=== PATIENT | male | born 1965 | race Caucasian/White ===

== ENCOUNTER 2017-07-17 14:43 | Inpatient (IN) | payer MEDICAID, SELFPAY ==
[2017-07-17 14:45] VITALS: BP 115/76; PULSE 117; RESP 16; TEMP 36.2; BMI 25.7
--- NOTE | 2017-07-17 15:55 | ED.DCSUM_ITS ---
- ER Visit Summary Date of Service: 07/17/17 Chief Complaint: History of alcoholism requesting detox History of Present Illness: The patient is a 51 M year history of alcoholism. Patient states that he was detoxed at [facility] [place]. Went through detox last March here at [facility] through [facility]. And he is requesting detox again. He drinks 624 ounce beers daily. He has drank in the last several hours. He also has had some mild nausea vomiting. No hematemesis. No abdominal pain. No melena. Physical Examination: No aged male no acute distress. Vital signs are stable. Afebrile. H EENT exam unremarkable on the smell of alcohol. Neck nontender. Lungs coarse breath sounds. Few scattered wheezes consistent with a smoking history. Heart regular rhythm rate about 110 no murmur. Chest wall nontender. Abdomen soft nontender. Moving all 4 extremities. Nontender. No deformity. No edema. Normal range of motion. Back exam nontender. Neurologically is awake and alert. He is intoxicated but moving all 4 extremities. Test Results: [] Emergency Department Course and Treatment: He is requesting detox. I spoke to [facility] personnel they are coming down to assess him for possible admission and treatment for detox. Treatment Plan: I spoke with Ceci from [facility] and the hospitalist and the patient is being admitted for detox. Disposition: Admission Impression: Acute on chronic alcoholism Requesting alcohol detox This note was generated with [employer] dictation software. It may contain incorrect words, spelling, and punctuation that were not noted in review of the chart prior to signing ED Disposition - Plan for ED Patient: Chief Complaint: ETOH Intox Referrals: [facility] Doctor,Out of [Primary Care Provider] -
[2017-07-17 16:15] VITALS: BP 131/92; PULSE 110; RESP 20
--- NOTE | 2017-07-17 16:30 | NURSING ---
210 ACUTE ALCOHOL WITHDRAWAL FOR MEDICAL STABILIZATION NEETA
[2017-07-17 16:35] VITALS: BMI 25.7
--- NOTE | 2017-07-17 16:38 | HP.PCM_ITS ---
Problem List (1) Alcohol withdrawal Status: Acute (2) Alcohol abuse Status: Chronic (3) Chronic back pain Status: Chronic (4) Tobacco dependence Status: Chronic (5) BPH (benign prostatic hyperplasia) Status: Chronic (6) COPD (chronic obstructive pulmonary disease) Status: Suspected History of Present Illness Date of Admission: 07/17/17 Chief Complaint: Shakiness, anxiety, restlessness. The patient is a 51 year old M with past medical history as mentioned above presented to the emergency room requesting admission for medical stabilization from alcohol withdrawal. His main presenting symptoms as well as anxiety, shakiness and restlessness that has been going on since yesterday. He has been drinking at least 6 beers daily and his mentioned that he has been drinking this way at least for 50 years. He complains of vague abdominal pain, described as cramping, 4-5 out of 10 in severity, not radiating, associated with nausea and vomiting and without aggravating or relieving factors. When I asked the patient if he was admitted for detoxification in the past, he mentioned that he never been admitted. Apparently, he told the ER physician that he was admitted in May, for detoxification at [facility] and [place]. Upon revision of his chart, he was admitted for medical stabilization he had no hospital back in March,. In the emergency room , patient was afebrile, tachycardic, blood pressure stable and his pulse ox was maintained on room air. No routine blood work performed in the ER. He is being admitted for alcohol withdrawal for medical stabilization. Past Medical History Past Medical History (Chronic Problems): Chronic Problems Alcohol abuse (Chronic) Chronic back pain (Chronic) Tobacco dependence (Chronic) BPH (benign prostatic hyperplasia) (Chronic) Allergies bee pollen Allergy (Verified 07/17/17 15:55) Anaphylaxis nickel Adverse Reaction (Verified 07/17/17 15:55) Rash tramadol Adverse Reaction (Verified 07/17/17 15:55) Nausea Home Medications: Ambulatory Orders Medication Instructions Recorded Gabapentin [Neurontin] 600 mg PO TID 03/07/17 Surgical History: - - Cyst removal on face. Psychiatric History: No pertinent psych hx Smoking Status: Current every day smoker Alcohol: Heavy Drugs: None - *Family History Maternal History Items: Cancer - Rectal, - - Alcohol abuse Paternal History Items: Heart Disease, - - Alcohol abuse Review of Systems Constitutional: Reports: Anorexia, Weakness. Denies: Chills, Fever Eyes: Denies: Blurred vision, Double vision, Drainage, Redness HEENT: Denies: Difficulty Hearing, Ear Pain, Eye Pain, Nasal Congestion, Sore Throat Cardiovascular: Denies: Chest Pain, Chest Pressure, Edema, Heaviness, Light Headedness, Palpitations, Paroxysmal Noc. Dyspnea, Syncope Respiratory: Reports: Cough, Shortness of Breath. Denies: Hemoptysis, Wheezing Gastrointestinal: Reports: Abdominal Pain, Nausea, Vomiting. Denies: Constipation, Diarrhea Genitourinary: Reports: Urgency. Denies: Dysuria, Frequency, Hematuria Musculoskeletal: Denies: Arm Pain, Back Pain, Foot Pain Skin: Denies: Dryness, Rash Neurological: Denies: Balance problems, Double vision, Change in Speech, Confusion, Headaches, Incoordination Psychiatric: Reports: Anxiety. Denies: Depression Endocrine: Denies: Change in Body Habitus, Polydipsia VTE Information - Inpt Only VTE Present on Admission: No VTE Mechan Device Prophylaxis: None VTE Pharm Prophylaxis ordered?: No - Physical Exam General: Alert, Oriented x3, Cooperative, - - Anxious, restless. HEENT: Atraumatic, PERRLA, EOMI Oral: Moist Mucosa, No Gingival or Mucosal Lesions/ Ulcerations Neck: Supple, No JVD, Negative Carotid Bruits, Trachea Midline, Thyroid Normal Size and Texture Lungs: Clear to auscultation, No rhonchi, No wheeze, No rales, Diminished Cardiovascular: Regular rate, Regular Rhythm, Normal S1, Normal S2, No murmurs, PMI Normal Abdomen: Bowel Sounds Present, Soft, Non Tender, Non-Distended, No Hepato- splenomegaly Extremities: No clubbing, No cyanosis, No edema Skin: No rashes, No breakdown Lymphatic: No Cervical, Supraclavicular, or Inguinal Adenopathy Neurological: Cranial nerves II-XII grossly intact, Motor Exam 5/5 strength throughout Psych/Mental Status: Anxious, Restless, Alert and oriented to time, place, person, mood and affect Vital Signs Temp Pulse Resp BP 97.2 F L 117 H 16 115/76 07/17/17 14:45 07/17/17 14:45 07/17/17 14:45 07/17/17 14:45 Weight: 184 lb 1.376 oz Body Mass Index (BMI) 25.7 Assessment/Plan This is 51 years old male patient presented to the emergency room requesting admission for medical stabilization due to acute alcohol withdrawal and he is being admitted for detoxification. #1 acute alcohol withdrawal: Patient has been drinking alcohol daily for the last 30 years. After division of discharge, patient was admitted twice in the last year for medical stabilization and he relapsed. At this time, he is tachycardic, anxious and restless. Blood pressure stable. No routine blood work was done in the ER plan: Admit to MedSurg floor, cardiac monitoring, initiate [facility] protocol with tapering course of Ativan, folic acid, thiamine, multivitamins, stat CBC and CMP, lipase, urine drug screen, and INR, routine EKG, as needed Tylenol, as needed Bentyl, Seroquel, Mirapex, IV Zofran as needed, notify [facility] office. #2 benign prostatic hypertrophy: Continue Flomax and Proscar. #3 suspected COPD: Clinically stable, pulse ox is maintained on room air. Plan for albuterol as needed. #4 chronic back pain: Continue gabapentin, Tylenol as needed. #5 alcohol abuse: Plan as above. #6 tobacco abuse: Patient smokes cigarettes, more than a pack every day. Plan for NicoDerm patch daily. #7 DVT prophylaxis: Low risk patient, no prophylaxis indicated. This note was generated with [employer] dictation software. It may contain incorrect words, spelling, and punctuation that were not noted in checking the note before signing. Code Visit Inpatient E&M: 18705 Init Hosp L2
[2017-07-17 16:40] VITALS: BMI 25.2
--- NOTE | 2017-07-17 17:12 | EKG12_ITS ---
Test Reason : ADM Blood Pressure : / mmHG Vent. Rate : 114 BPM Atrial Rate : 114 BPM P-R Int : 160 ms QRS Dur : 092 ms QT Int : 320 ms P-R-T Axes : 060 102 032 degrees QTc Int : 441 ms Sinus tachycardia Otherwise normal ECG No previous ECGs available Confirmed by HILTON GALVEZ, MOMO ([id number]), editor & co founder SIMIN MCNAMARA ([id number] on 07/26/2017 1:14:57 PM Referred By: NEETA Confirmed By:MOMO CANELA MD
[2017-07-17 17:33] VITALS: BP 128/62; PULSE 118; RESP 16; TEMP 36.7; O2SAT 93
[2017-07-17 17:39] VITALS: BP 128/62; PULSE 118; RESP 18; TEMP 36.7
[2017-07-17] MEDS: Dextrose 5%/0.9% NaCl 1,000 ML 75 ML IV (17:54)
[2017-07-17 18:00] VITALS: PULSE 115
[2017-07-17] MEDS: Tamsulosin HCl 0.4 MG Capsule PO (18:00)
[2017-07-17] MEDS: LORazepam 1 MG Tablet PO ×2 (18:00→21:00)
[2017-07-17] MEDS: Dicyclomine 10 MG Capsule 20 MG PO (18:00)
[2017-07-17] MEDS: Ondansetron 4 MG/2 ML Vial IV (18:01)
[2017-07-17 18:11] LABS: International Normalized Ratio 0.9; Prothrombin Time (Protime)PT. 12.4 SECONDS (11.7-14.9)
[2017-07-17 18:13] LABS: Absolute Lymphocyte Count 1.49 X10^3/ul (0.83-4.51); Basophil# 0.03 X10^3/uL; Basophil% 0.8 % (0-1); Eosinophil# 0.01 X10^3/uL; Eosinophils% 0.3 % (0-5); Hematocrit 46.5 % (40-54); Hemoglobin 16.4 g/dl (13.0-16.5); Lymphocyte # 1.49 X10^3/ul (4.0); Lymphocyte % 37.7 % (19-41); Mean Corp Hgb Conc 35.3 g/gl (32-36); Mean Corpuscular Hgb 33.2 pg (27.0-32.0); Mean Corpuscular Volume 94.1 fL (80-94); Mean Platelet Vol. 9.1 fl (6.2-12.0); Monocyte# 0.45 X10^3/uL; Monocyte% 11.4 % (0-10); Neutrophil # 1.96 X10^3/uL (2.7-7.7); Neutrophil % 49.5 % (47-70); Platelet Count 147 K/mm3 (150-450); RBC Distribution Width CV 13.1 % (11.6-14.6); RBC Distribution Width SD 44.2 fl (35.1-43.9); Red Blood Count 4.94 M/mm3 (4.6-6.2)
[2017-07-17 18:18] LABS: POSITIVE COUNT NO; POSITIVE DIFFERENTIAL NO; POSITIVE MORPHOLOGY NO
[2017-07-17 18:23] LABS: AST(SGOT) 157 U/L (15-37); Alanine Aminotransfer ALT/SGPT 143 U/L (16-61); Albumin, Serum 3.7 g/dL (3.2-5.0); Alkaline Phosphatase 124 U/L (45-117); Anion Gap 11 (5-15); BUN 7 mg/dL (7-18); Chloride 102 mmol/L (98-107); Creatinine, Serum 0.78 mg/dL (0.70-1.30); EST Glomerular Filtration Rate 113 mL/min (>60); Est Glom Filt Rate - Afr Amer 137 mL/min (>60); Estimated Creatinine Clearance 122.01 ml/min; Globulin 3.7 g/dL (2.2-4.2); Glucose 71 mg/dL (74-106); Lipase 248 U/L (73-393); Potassium 3.8 mmol/L (3.5-5.1); Protein, Total 7.4 g/dL (6.4-8.2); Sodium Level 139 mmol/L (136-145)
[2017-07-17] MEDS: Gabapentin 600 MG Tablet PO (19:12)
[2017-07-17] MEDS: hydrOXYzine PAM 25 MG Capsule 50 MG PO (19:12)
[2017-07-17] MEDS: QUEtiapine 25 MG Tablet PO (19:52)
[2017-07-17] MEDS: Pramipexole Di-HCl 0.25 MG Tablet PO (19:52)
[2017-07-17 20:24] LABS: Amphetamine Urine VISTA NEGATIVE (<1000 ng/mL); Barbiturate Urine VISTA NEGATIVE (< 200 ng/mL); Benzodiazepine Urine VISTA NEGATIVE (< 200 ng/mL); Cocaine Urine VISTA NEGATIVE (< 300 ng/mL); Ecstacy Urine VISTA NEGATIVE (< 500 ng/mL); Methadone Urine VISTA NEGATIVE (< 300 ng/mL); PCP Urine VISTA NEGATIVE (< 25 ng/mL); THC Urine VISTA NEGATIVE (< 50 ng/mL); Vista UDS pH Range 6
[2017-07-17] MEDS: cloNIDine HCl 0.1 MG Tablet PO (21:00)
[2017-07-17 22:00] VITALS: BP 127/76; PULSE 118; RESP 18; TEMP 37
[2017-07-18] VITALS (10 sets, daily range): BP systolic 98–144; BP diastolic 61–105; PULSE 90–110; RESP 17–18; TEMP 36.5–37; O2SAT 92–97
[2017-07-18] MEDS: LORazepam 1 MG Tablet PO ×6 (02:13→23:43)
[2017-07-18] MEDS: cloNIDine HCl 0.1 MG Tablet PO ×5 (05:39→22:01)
[2017-07-18] MEDS: Multivitamins,Ther W-Minerals Tablet 1 TABLET PO (07:36)
[2017-07-18] MEDS: Folic Acid 1 MG Tablet PO (07:36)
[2017-07-18] MEDS: Thiamine Hydrochloride 100 MG Tablet PO (07:36)
[2017-07-18] MEDS: hydrOXYzine PAM 25 MG Capsule 50 MG PO ×3 (07:39→22:05)
--- NOTE | 2017-07-18 08:48 | PN_ITS ---
Subjective: Chief complaint: Follow-up after admission for acute alcohol withdrawal. Patient seen and examined. No acute events overnight. He is still complaining of significant shakiness and restlessness but he mentioned that he is feeling better. He denies any more abdominal pain or cramps, no nausea vomiting. He is afebrile, slightly tachycardic, blood pressure stable and pulse ox is maintained on room air. - Physical Exam General: Alert, Oriented x3, Cooperative, - - Anxious. HEENT: Atraumatic, PERRLA, EOMI Oral: Moist Mucosa, No Gingival or Mucosal Lesions/ Ulcerations Neck: Supple, No JVD, Negative Carotid Bruits, Trachea Midline, Thyroid Normal Size and Texture Lungs: Clear to auscultation, Normal air movement, No rhonchi, No wheeze, No rales Cardiovascular: Regular rate, Regular Rhythm, Normal S1, Normal S2, PMI Normal, Tachycardic Abdomen: Bowel Sounds Present, Soft, Non Tender, Non-Distended, No Hepato- splenomegaly Extremities: No clubbing, No cyanosis, No edema Skin: No rashes, No breakdown Lymphatic: No Cervical, Supraclavicular, or Inguinal Adenopathy Neurological: Cranial nerves II-XII grossly intact, Neuro grossly intact Psych/Mental Status: Normal Affect, Anxious Vital Signs Temp Pulse Resp BP Pulse Ox 97.7 F L 103 H 18 113/74 92 07/18/17 07:29 07/18/17 07:29 07/18/17 07:29 07/18/17 07:29 07/18/17 07:29 Oxygen Delivery Method Room Air Weight: 180 lb 12.465 oz Body Mass Index (BMI) 25.2 Intake and Output for Last 24 Hours 07/16/17 07/17/17 07/18/17 23:59 23:59 23:59 Intake Total 2029 / 2030 Output Total 300 / 300 Balance 1730 / 1730 Laboratory Tests Past 24 Hrs 07/17/17 07/17/17 07/17/17 17:24 17:24 17:24 WBC 4.0 L RBC 4.94 Hgb 16.4 Hct 46.5 MCV 94.1 H MCH 33.2 H MCHC 35.3 RDW 13.1 RDW Differential 44.2 H Plt Count 147 L MPV 9.1 Immature Gran % (Auto) 0.300 Neut % (Auto) 49.5 Lymph % (Auto) 37.7 [place] % (Auto) 11.4 H Eos % (Auto) 0.3 Baso % (Auto) 0.8 Absolute Neuts (auto) 2.0 Absolute Lymphs (auto) 1.49 Total Counted Not Reportable PT 12.4 INR 0.9 Sodium Potassium Chloride Carbon Dioxide Anion Gap BUN Creatinine Estim Creat Clear Calc Est GFR (MDRD) Af Amer Est GFR (MDRD) Non-Af BUN/Creatinine Ratio Glucose Calcium Total Bilirubin AST ALT Alkaline Phosphatase Total Protein Albumin Globulin Albumin/Globulin Ratio Lipase Urine Opiates Screen Urine Methadone Screen Ur Barbiturates Screen Ur Phencyclidine Scrn Ur Amphetamines Screen U Methamphetamin-MDMA U Benzodiazepines Scrn Urine Cocaine Screen U Cannabinoids Screen Ur Drug Screen Comment Ethyl Alcohol 393.0 H* 07/17/17 07/17/17 17:24 19:55 WBC RBC Hgb Hct MCV MCH MCHC RDW RDW Differential Plt Count MPV Immature Gran % (Auto) Neut % (Auto) Lymph % (Auto) [place] % (Auto) Eos % (Auto) Baso % (Auto) Absolute Neuts (auto) Absolute Lymphs (auto) Total Counted PT INR Sodium 139 Potassium 3.8 Chloride 102 Carbon Dioxide 26.0 Anion Gap 11 BUN 7 Creatinine 0.78 Estim Creat Clear Calc 122.01 Est GFR (MDRD) Af Amer 137 Est GFR (MDRD) Non-Af 113 BUN/Creatinine Ratio 9.0 L Glucose 71 L Calcium 8.0 L Total Bilirubin 0.40 AST 157 H ALT 143 H Alkaline Phosphatase 124 H Total Protein 7.4 Albumin 3.7 Globulin 3.7 Albumin/Globulin Ratio 1.0 Lipase 248 Urine Opiates Screen NEGATIVE Urine Methadone Screen NEGATIVE Ur Barbiturates Screen NEGATIVE Ur Phencyclidine Scrn NEGATIVE Ur Amphetamines Screen NEGATIVE U Methamphetamin-MDMA NEGATIVE U Benzodiazepines Scrn NEGATIVE Urine Cocaine Screen NEGATIVE U Cannabinoids Screen NEGATIVE Ur Drug Screen Comment Ethyl Alcohol Medical Necessity - Tobacco Use Smoking Status: Current every day smoker Tobacco Use: Cigarettes Assessment/Plan This is 51 years old male patient presented to the emergency room requesting admission for medical stabilization due to acute alcohol withdrawal and he is being admitted for detoxification. #1 acute alcohol withdrawal: He is on [facility] protocol with tapering course of Ativan, vitamin supplements with folic acid and thiamine, as needed Catapres , Bentyl, Vistaril, Mirapex and Seroquel. He is still complaining of shakiness and restlessness, tachycardic. Other vital signs are stable. Routine blood work was unremarkable. Pro time and INR are normal. Liver enzymes are slightly elevated. EKG revealed sinus tachycardia, otherwise normal. Plan: Continue same treatment. #2 elevated LFT: Likely because of alcoholic hepatitis. Pro time and INR are normal. #3 benign prostatic hypertrophy: Continue Flomax and Proscar. #4 suspected COPD: Clinically stable, pulse ox is maintained on room air. Continue albuterol as needed. #5 chronic back pain: Continue gabapentin, Tylenol as needed. #6 alcohol abuse: Plan as above. #7 tobacco abuse: Patient smokes cigarettes, more than a pack every day. He is on NicoDerm patch daily. #8 DVT prophylaxis: Low risk patient, no prophylaxis indicated. This note was generated with [employer] dictation software. It may contain incorrect words, spelling, and punctuation that were not noted in checking the note before signing. Code Visit Inpatient E&M: 05792 Subs Hosp L2
[2017-07-18] MEDS: Finasteride 5 MG Tablet PO (10:24)
[2017-07-18] MEDS: Ondansetron 4 MG/2 ML Vial IV (13:39)
[2017-07-18] MEDS: 0.9% NaCl Peripheral Flush Adult/Peds IV (13:40)
--- NOTE | 2017-07-18 14:42 | CHAPLAIN ---
Type of Pastoral Visit _x__ Initial Visit ___ Follow-up Visit ___ On-call Visit ___ General Patient Visit ___ Spiritual Assessment ___ Family Conference ___ Bereavement ___ Rapid Response ___ Code Blue ___ Other (describe below) Pastoral Care Referral From _x__ Patient ___ Family ___ Nurse ___ Physician ___ Skylights Assembler ___ Foundation Maker ___ Other (describe below) Sacrament/Intervention ___ Active listening ___ Anointing ___ Advent ___ Bereavement ___ Communion ___ Kristel exploration ___ ___ Life review ___ Prayer ___ Reconciliation ___ Sacrament of Sick _x__ Supportive presence ___ Wedding ___ Other (describe below) Pastoral Comments patient says that he is not feeling well enough to talk but would welcome parks recreation director to return tomorrow for follow up; pt reports that everyone has been treating him very well and he is glad to be here for the help needed
[2017-07-18] MEDS: Gabapentin 600 MG Tablet PO ×2 (15:04→23:46)
[2017-07-18] MEDS: Tamsulosin HCl 0.4 MG Capsule PO (17:33)
[2017-07-18] MEDS: Pramipexole Di-HCl 0.25 MG Tablet PO (22:05)
[2017-07-18] MEDS: Albuterol 2.5 MG/3 ML VIAL.NEB. INHALATION (22:55)
[2017-07-19 02:26] VITALS: BP 126/93; PULSE 98; RESP 18; TEMP 36.4
[2017-07-19] MEDS: QUEtiapine 25 MG Tablet PO ×2 (02:29→10:01)
[2017-07-19] MEDS: cloNIDine HCl 0.1 MG Tablet PO ×4 (02:29→14:26)
[2017-07-19 05:53] VITALS: BP 119/89; PULSE 98; RESP 18; TEMP 36.6
[2017-07-19] MEDS: LORazepam 1 MG Tablet PO ×2 (05:55→11:49)
--- NOTE | 2017-07-19 08:30 | PN_ITS ---
Subjective: Chief complaint: Follow-up after admission for acute alcohol withdrawal. patient seen and examined. No acute events overnight. He reported continued slow improvement in symptoms, less shaky and restless. Denies any other significant complaints. Vital signs are stable, slightly tachycardic. - Physical Exam General: Alert, Oriented x3, Cooperative, No apparent distress HEENT: Atraumatic, PERRLA, EOMI Oral: Moist Mucosa, No Gingival or Mucosal Lesions/ Ulcerations Neck: Supple, No JVD, Negative Carotid Bruits, Trachea Midline, Thyroid Normal Size and Texture Lungs: Clear to auscultation, Normal air movement, No rhonchi, No wheeze, No rales Cardiovascular: Regular rate, Regular Rhythm, Normal S1, Normal S2, PMI Normal Abdomen: Bowel Sounds Present, Soft, Non Tender, Non-Distended, No Hepato- splenomegaly Extremities: No clubbing, No cyanosis, No edema Skin: No rashes, No breakdown Lymphatic: No Cervical, Supraclavicular, or Inguinal Adenopathy Neurological: Cranial nerves II-XII grossly intact, Neuro grossly intact Psych/Mental Status: Normal Affect, Appropriate, Alert and oriented to time, place, person, mood and affect Vital Signs Temp Pulse Resp BP Pulse Ox 97.8 F 98 18 119/89 H 95 07/19/17 05:53 07/19/17 05:53 07/19/17 05:53 07/19/17 05:53 07/18/17 22:55 Oxygen Delivery Method Room Air Weight: 180 lb 12.465 oz Body Mass Index (BMI) 25.2 Intake and Output for Last 24 Hours 07/17/17 07/18/17 07/19/17 23:59 23:59 23:59 Intake Total 2870 / 2870 1000 / 1000 Output Total 300 / 300 Balance 2570 / 2570 1000 / 1000 Medical Necessity - Tobacco Use Smoking Status: Current every day smoker Tobacco Use: Cigarettes Assessment/Plan This is 51 years old male patient presented to the emergency room requesting admission for medical stabilization due to acute alcohol withdrawal and he is being admitted for detoxification. #1 acute alcohol withdrawal: He is on [facility] protocol with tapering course of Ativan, vitamin supplements with folic acid and thiamine, as needed Catapres , Bentyl, Vistaril, Mirapex and Seroquel. Symptoms started to improve, vital signs are stable. Routine blood work was unremarkable. Pro time and INR are normal. Liver enzymes are slightly elevated. EKG revealed sinus tachycardia, otherwise normal. Plan: Continue same treatment. #2 elevated LFT: Likely because of alcoholic hepatitis. Pro time and INR are normal. #3 benign prostatic hypertrophy: Continue Flomax and Proscar. #4 suspected COPD: Clinically stable, pulse ox is maintained on room air. Continue albuterol as needed. #5 chronic back pain: Continue gabapentin, Tylenol as needed. #6 alcohol abuse: Plan as above. #7 tobacco abuse: Patient smokes cigarettes, more than a pack every day. He is on NicoDerm patch daily. #8 DVT prophylaxis: Low risk patient, no prophylaxis indicated. This note was generated with [employer] dictation software. It may contain incorrect words, spelling, and punctuation that were not noted in checking the note before signing. Code Visit Inpatient E&M: 68277 Subs Hosp L2
[2017-07-19 09:53] VITALS: BP 131/97; PULSE 99; RESP 18; TEMP 36.3; O2SAT 95
[2017-07-19] MEDS: Folic Acid 1 MG Tablet PO (09:53)
[2017-07-19] MEDS: Multivitamins,Ther W-Minerals Tablet 1 TABLET PO (09:53)
[2017-07-19] MEDS: Thiamine Hydrochloride 100 MG Tablet PO (09:53)
[2017-07-19] MEDS: Finasteride 5 MG Tablet PO (09:55)
[2017-07-19 10:00] VITALS: BP 131/97; PULSE 95; RESP 18; TEMP 36.3
[2017-07-19 14:00] VITALS: BP 147/103; PULSE 95; RESP 16; TEMP 36.4
[2017-07-19] MEDS: hydrOXYzine PAM 25 MG Capsule 50 MG PO (14:31)
[2017-07-19] MEDS: Tuberculin,Purif.prot.deriv. 50 TU/ML Vial 5 ML ID (17:32)
[2017-07-19 21:35] VITALS: BP 148/90; PULSE 97; RESP 18; TEMP 36.4; O2SAT 96
[2017-07-20] MEDS: QUEtiapine 25 MG Tablet PO (00:13)
[2017-07-20] MEDS: cloNIDine HCl 0.1 MG Tablet PO ×2 (01:59→05:18)
[2017-07-20] MEDS: LORazepam 1 MG Tablet PO (01:59)
[2017-07-20 02:01] VITALS: BP 129/92; PULSE 95; RESP 18; TEMP 36.4
[2017-07-20 02:06] VITALS: BP 129/92; PULSE 95; RESP 18; TEMP 36.4; O2SAT 95
[2017-07-20] MEDS: hydrOXYzine PAM 25 MG Capsule 50 MG PO (05:19)
--- NOTE | 2017-07-20 08:06 | PCM.DC ---
You will use the following diet at home:: Regular Your food should be the consistency of: Regular Discharge Activity: Return to Normal Activity Weight Bearing Status: Full weight bearing Call your doctor if you observe: Fever of 101 or Higher, Shortness of breath, Dizziness, Fainting spells, Chest pain, Increased palpitations (irregular heartbeat), Uncontrolled pain Allergies/Adverse Reactions: Allergies bee pollen Allergy (Verified 07/17/17 15:55) Anaphylaxis nickel Adverse Reaction (Verified 07/17/17 15:55) Rash tramadol Adverse Reaction (Verified 07/17/17 15:55) Nausea Medications to take at Discharge Gabapentin [Neurontin] 600 mg PO TID PRN 03/07/17 Finasteride [Proscar] 5 mg PO DAILY #30 tab 07/20/17 Folic Acid 1 mg PO DAILY@0800 #30 tab 07/20/17 Multivitamins,Ther W-Minerals [Multivitamin With Minerals] 1 tab PO DAILYCM #30 tab 07/20/17 Tamsulosin HCl [Flomax] 0.4 mg PO DAILY@1730 #30 cap 07/20/17 Thiamine Hydrochloride [Vitamin B1] 100 mg PO DAILYCM #30 tab 07/20/17 The following prescriptions were given: Finasteride [Proscar] 5 mg PO DAILY #30 tab Folic Acid 1 mg PO DAILY@0800 #30 tab Multivitamins,Ther W-Minerals [Multivitamin With Minerals] 1 tab PO DAILYCM #30 tab Tamsulosin HCl [Flomax] 0.4 mg PO DAILY@1730 #30 cap Thiamine Hydrochloride [Vitamin B1] 100 mg PO DAILYCM #30 tab Primary Care Physician: [facility] Doctor,Out of [Primary Care Provider] - Please follow up with your Primary Care Physician in: 2 weeks.
[2017-07-20 08:07] VITALS: BP 113/82; PULSE 107; RESP 18; TEMP 36.9; O2SAT 96
--- NOTE | 2017-07-20 11:19 | DS.PCM_ITS ---
Discharge Date and Diagnosis Date of Admission: 07/17/17 Date of Discharge: 07/20/17 - Primary Discharge Diagnosis #1 acute alcohol withdrawal. #2 mild alcoholic hepatitis. - Secondary Discharge Diagnosis Chronic Problems Alcohol abuse (Chronic) Chronic back pain (Chronic) Tobacco dependence (Chronic) BPH (benign prostatic hyperplasia) (Chronic) Hospital Course and Treatment Operations: None Procedures: None Summary of Care Provided: Patient seen and examined on the day of discharge and appeared to be stable to be discharged home. Symptoms of anxiety, tremors and restlessness significantly improved. Denied any other complaints. Vital signs are stable. - Physical Exam General: Alert, Oriented x3, Cooperative, No apparent distress. HEENT: Atraumatic, PERRLA, EOMI. Neck: Supple, No JVD, Negative Carotid Bruits, Trachea Midline, Thyroid Normal. Lungs: Clear to auscultation, Normal air movement, No rhonchi, No wheeze, No rales. Cardiovascular: Regular rate, Regular Rhythm, Normal S1, Normal S2, PMI Normal. Abdomen: Bowel Sounds Present, Soft, Non Tender, Non-Distended, No Hepato- splenomegaly. Extremities: No clubbing, No cyanosis, No edema Skin: No rashes, No breakdown Neurological: Neuro grossly intact Vital Signs are stable. Hospital course: The patient is a 51 year old M presented to the emergency room requesting admission for medical stabilization and detoxification from acute alcohol withdrawal. Patient came in with symptoms of anxiety, restlessness, body aches and pains and abdominal discomfort. He has been using large amounts of alcohol daily for long time. In the past, he was admitted twice for alcohol withdrawal and he relapsed. He was treated with [facility] protocol with tapering course of Ativan, multivitamins, folic acid, thiamine, as needed Catapres, Bentyl, Vistaril, Mirapex and Seroquel. His EKG revealed sinus tachycardia, otherwise normal. His routine blood work was unremarkable. His liver enzymes were slightly elevated which is attributed to mild alcoholic hepatitis. His pro time and INR were normal. His lipase, total bilirubin and alkaline phosphatase were normal. His blood alcohol level was 393. His urine drug screen was negative. After treatment with [facility] protocol, patient symptoms improved, anxiety and restlessness significantly improved and he feels much better. Patient discharged home in a stable medical condition, discharged on multivitamins, folic acid, thiamine, continued on Proscar and Flomax for benign prostatic hypertrophy, recommended follow-up with PCP in 2 weeks and he will be going to [facility] which is an inpatient facility for alcoholic patients. Discharge Activity: Return to Normal Activity Weight Bearing Status: Full weight bearing Call your doctor if you observe: Fever of 101 or Higher, Shortness of breath, Dizziness, Fainting spells, Chest pain, Increased palpitations (irregular heartbeat), Uncontrolled pain Home Medications: Medications to take at Discharge Gabapentin [Neurontin] 600 mg PO TID PRN 03/07/17 Finasteride [Proscar] 5 mg PO DAILY #30 tab 07/20/17 Folic Acid 1 mg PO DAILY@0800 #30 tab 07/20/17 Multivitamins,Ther W-Minerals [Multivitamin With Minerals] 1 tab PO DAILYCM #30 tab 07/20/17 Tamsulosin HCl [Flomax] 0.4 mg PO DAILY@1730 #30 cap 07/20/17 Thiamine Hydrochloride [Vitamin B1] 100 mg PO DAILYCM #30 tab 07/20/17 Following Prescrptions Were Given to Patient: Finasteride [Proscar] 5 mg PO DAILY #30 tab Folic Acid 1 mg PO DAILY@0800 #30 tab Multivitamins,Ther W-Minerals [Multivitamin With Minerals] 1 tab PO DAILYCM #30 tab Tamsulosin HCl [Flomax] 0.4 mg PO DAILY@1730 #30 cap Thiamine Hydrochloride [Vitamin B1] 100 mg PO DAILYCM #30 tab Primary Care Physician: Kellee Lawler,Out of [Primary Care Provider] - Please follow up with your Primary Care Physician in: 2 weeks. Disposition: Home Minutes spent on discharge:: 26 Patient Condition:: Stable Medical Necessity - Tobacco Use Smoking Status: Current every day smoker Tobacco Use: Cigarettes Meaningful Use Info Meaningful Use Diagnoses (Choose all that apply): None applicable Code Visit Inpatient E&M: 52674 Disch Hosp
== END 2017-07-20 08:45 | disposition home or self-care (01) | DRG 434 ==
LOC: ED 16:14 → MS2 16:37
PROVIDERS: Admitting Provider Hospitalist; Emergency Provider Emergency Medicine; Visit Provider Hospitalist
DX: F10.239 Alcohol dependence with withdrawal, unspecified (principal); J44.9 Chronic obstructive pulmonary disease, unspecified; K70.10 Alcoholic hepatitis without ascites; N40.0 Benign prostatic hyperplasia without lower urinary tract symptoms; M54.9 Dorsalgia, unspecified; G89.29 Other chronic pain; F17.210 Nicotine dependence, cigarettes, uncomplicated; Y90.8 Blood alcohol level of 240 mg/100 ml or more
CPT/HCPCS: 36415; 80053; 80307; 80320; 83690; 85025; 85610; 93005; 94640; 97802; 99283; 99406; A4216; G0480; J2405

== ENCOUNTER 2024-09-17 18:29 | Inpatient (IN) | payer MEDICAID, SELFPAY ==
[2024-09-17 18:30] VITALS: BP 121/80; PULSE 103; RESP 18; TEMP 36.8; O2SAT 95; BMI 30.8
--- NOTE | 2024-09-17 18:46 | EX.ED.SAOD ---
HPI <NEVA Ayala - Last Filed: 09/17/24 20:07> History of Present Illness Chief Complaint: Substance Abuse Narrative Narrative: 58-year-old male has a history of alcoholism. He drinks 6-9 tall boy beers a day and states his last drink was about 20 minutes ago. He is here requesting alcohol detox. He detoxed at [facility] several years ago and states he detoxed somewhere else in May of this year and lasted about a month before he started drinking again. He denies history of withdrawal seizures. He takes gabapentin for arthritis and neuropathy. His states he is prescribed vitamin B and an antiacid but he does not take them. He denies other drug use. He denies fever or chills, chest pain or shortness of breath, abdominal, vomiting, hematemesis, melena or hematochezia. PFS <NEVA Ayala - Last Filed: 09/17/24 20:07> [facility] Medical History (Updated 09/17/24 @ 21:09 by Yasemin Weiss) Anxiety Sleep apnea Smoker Hypertension TIA (transient ischemic attack) EtOH dependence Home Medications ?Medication ?Instructions ?Recorded ?Last Taken ?Type cyclobenzaprine 10 mg tablet 10 mg PO QHS muscle spasm 09/17/24 Unknown History gabapentin 300 mg capsule 600 mg PO TID 09/17/24 09/17/24 History melatonin 5 mg tablet 5 mg PO QHS 09/17/24 09/16/24 History omeprazole 20 mg tablet,delayed 20 mg PO DAILY 09/17/24 09/16/24 History release Allergy/AdvReac Type Severity Reaction Status Date / Time bee pollen Allergy Anaphylaxis Verified 09/17/24 18:30 nickel AdvReac Rash Verified 09/17/24 18:30 tramadol AdvReac Nausea Verified 09/17/24 18:30 Social History Smoking Status: Current every day smoker tobacco type: cigarettes ROS <NEVA Ayala - Last Filed: 09/17/24 20:07> ROS ED ROS Narrative Constitutional: Negative for fever, chills, malaise. CVS: Positive for chest pain. No syncope. Respiratory: Negative for cough. GI: Negative for abdominal pain, vomiting, melena, hematochezia. : Negative for dysuria. Neuro: Negative for headache. EXAM <NEVA Ayala - Last Filed: 09/17/24 20:07> Physical Exam Narrative Exam Narrative: CONST: Patient sitting in no acute distress. EYES: Normal inspection. NECK: Normal inspection. RESP: No respiratory distress, CTAB. CVS: Slightly tachycardic with regular rhythm, no murmur, no gallop. ABD: Soft and nontender, no guarding or rebound, nondistended. SKIN: Color normal, no rash, warm, dry, intact. EXTREMITIES: Normal appearance. NEURO: Alert and answering questions appropriately. PSYCH: Normal affect. Const Vital Signs: 09/17/24 18:30 Temperature 98.3 F Temperature Source Oral Pulse Rate 103 H Respiratory Rate 18 Blood Pressure 121/80 H Blood Pressure Mean 93 Pulse Ox 95 Oxygen Delivery Method Room Air <Dr. Doe Oh DO - Last Filed: 09/17/24 23:20> Physical Exam Const Vital Signs: 09/17/24 18:30 Temperature 98.3 F Temperature Source Oral Pulse Rate 103 H Respiratory Rate 18 Blood Pressure 121/80 H Blood Pressure Mean 93 Pulse Ox 95 Oxygen Delivery Method Room Air MDM <NEVA Ayala - Last Filed: 09/17/24 20:07> MDM MDM Narrative Medical decision making narrative: History gathered from: Patient and spouse Differential includes but not limited to no alcohol abuse/withdrawal, hepatitis, cirrhosis 58-year-old male here requesting alcohol detox. He is a daily heavy drinker and last drink was 20 minutes prior to arrival. Currently asymptomatic. He is mildly tachycardic in the low 100s with otherwise normal vital signs. CBC shows hemoglobin of 17.1, otherwise normal. Sodium 131, normal renal function, AST 63, ALT 64 which are lower than previous. Urine drug screen is negative. Alcohol is 368. I discussed the case with the hospitalist for admission. Lab Data Attestation: I reviewed the patient's lab results. Labs: Laboratory Results - last 24 hr 09/17/24 18:49 WBC 7.1 RBC 5.11 Hgb 17.1 H Hct 49.4 MCV 96.7 H MCH 33.5 H MCHC 34.6 RDW Std Deviation 48.2 H RDW Coeff of Shelby 13.4 Plt Count 281 MPV 8.2 Immature Gran % (Auto) 0.300 Neut % (Auto) 53.0 Lymph % (Auto) 31.7 Mckenzie % (Auto) 11.8 H Eos % (Auto) 2.5 Baso % (Auto) 0.7 Absolute Neuts (auto) 3.8 Absolute Lymphs (auto) 2.26 Nucleated RBC % 0 Sodium 131 L Potassium 4.5 Chloride 94 L Carbon Dioxide 22.2 Anion Gap 14 BUN 4 Creatinine 0.60 L Estim Creat Clear Calc 165.82 Est GFR (MDRD) Non-Af 113 BUN/Creatinine Ratio 6.5 L Glucose 176 H Calcium 8.7 Magnesium 2.1 Total Bilirubin 0.33 AST 63 H ALT 64 H Alkaline Phosphatase 116 Total Protein 7.4 Albumin 4.1 Globulin 3.3 Albumin/Globulin Ratio 1.3 Urine Opiates Screen NEGATIVE U Buprenorphine Qual NEGATIVE Ur Oxycodone Screen NEGATIVE Urine Methadone Screen NEGATIVE Urine Fentanyl Screen NEGATIVE Ur Barbiturates Screen NEGATIVE Ur Phencyclidine Scrn NEGATIVE Ur Amphetamines Screen NEGATIVE U Benzodiazepines Scrn NEGATIVE Urine Cocaine Screen NEGATIVE U Cannabinoids Screen NEGATIVE Ethyl Alcohol 368.0 H* <Dr. Doe Oh, DO - Last Filed: 09/17/24 23:20> [facility] Lab Data Labs: Laboratory Results - last 24 hr 09/17/24 18:49 WBC 7.1 RBC 5.11 Hgb 17.1 H Hct 49.4 MCV 96.7 H MCH 33.5 H MCHC 34.6 RDW Std Deviation 48.2 H RDW Coeff of [place] 13.4 Plt Count 281 MPV 8.2 Immature Gran % (Auto) 0.300 Neut % (Auto) 53.0 Lymph % (Auto) 31.7 Mckenzie % (Auto) 11.8 H Eos % (Auto) 2.5 Baso % (Auto) 0.7 Absolute Neuts (auto) 3.8 Absolute Lymphs (auto) 2.26 Nucleated RBC % 0 Sodium 131 L Potassium 4.5 Chloride 94 L Carbon Dioxide 22.2 Anion Gap 14 BUN 4 Creatinine 0.60 L Estim Creat Clear Calc 165.82 Est GFR (MDRD) Non-Af 113 BUN/Creatinine Ratio 6.5 L Glucose 176 H Calcium 8.7 Magnesium 2.1 Total Bilirubin 0.33 AST 63 H ALT 64 H Alkaline Phosphatase 116 Total Protein 7.4 Albumin 4.1 Globulin 3.3 Albumin/Globulin Ratio 1.3 Urine Opiates Screen NEGATIVE U Buprenorphine Qual NEGATIVE Ur Oxycodone Screen NEGATIVE Urine Methadone Screen NEGATIVE Urine Fentanyl Screen NEGATIVE Ur Barbiturates Screen NEGATIVE Ur Phencyclidine Scrn NEGATIVE Ur Amphetamines Screen NEGATIVE U Benzodiazepines Scrn NEGATIVE Urine Cocaine Screen NEGATIVE U Cannabinoids Screen NEGATIVE Ethyl Alcohol 368.0 H* Treatment and Re-Evaluation Narrative: Attending note: I have personally performed a face to face assessment of the patient and have reviewed the MEHUL note. I personally made/approved the management plan and take responsibility for the patient management. I performed a substantive portion of the visit including all aspects of the following. My laboy findings include: Here for alcohol detox. 5-6 drinks a day had detox this past May was sober for a month. No withdrawal seizures. No suicidal homicidal ideations. Workup alcohol level 368, no clinical intoxication. Slight elevated transaminitis. Discussed with hospitalist for admission. Discharge Plan Dx/Rx/DC Orders Clinical Impression: Alcohol abuse, Desire for detoxification, Alcoholic hepatitis Disposition Disposition: Acute Care Hospital [facility] Discharge Date/Time: 09/17/24 20:36
[2024-09-17 19:03] LABS: Absolute Lymphocyte Count 2.26 X10^3/uL (0.83-4.51); Absolute Neutrophil Count 3.8 X10^3/uL (2.0-7.7); Basophil# 0.05 X10^3/uL; Basophil% 0.7 % (0-1); Eosinophil# 0.18 X10^3/uL; Eosinophils% 2.5 % (0-5); Hematocrit 49.4 % (40-54); Hemoglobin 17.1 g/dL (13.0-16.5); Lymphocyte # 2.26 X10^3/ul (0.83-4.51); Lymphocyte % 31.7 % (19-41); Mean Corp Hgb Conc 34.6 g/dL (32-36); Mean Corpuscular Hgb 33.5 pg (27.0-32.0); Mean Corpuscular Volume 96.7 fL (80-94); Mean Platelet Vol. 8.2 fl (6.2-12.0); Monocyte# 0.84 X10^3/uL; Monocyte% 11.8 % (0-10); NRBC Flagged by Analyzer 0 % (0-5); Neutrophil # 3.78 X10^3/uL (2.7-7.7); Platelet Count 281 K/mm3 (150-450); RBC Distribution Width CV 13.4 % (11.6-14.6); RBC Distribution Width SD 48.2 fl (35.1-43.9); Red Blood Count 5.11 M/mm3 (4.6-6.2); White Blood Count 7.1 K/mm3 (4.4-11.0)
[2024-09-17 19:17] LABS: Amphetamine Urine NEGATIVE (<1000 ng/mL); Barbiturate Urine NEGATIVE (< 200 ng/mL); Benzodiazepine Urine NEGATIVE (< 200 ng/mL); Buprenorphine Urine NEGATIVE (< 200 ng/mL); Cocaine Urine NEGATIVE (< 300 ng/mL); Fentanyl, Urine NEGATIVE; Methadone Urine NEGATIVE (< 300 ng/mL); Opiates Urine NEGATIVE (< 300 ng/mL); Oxycodone, Urine NEGATIVE (< 100 ng/mL); PCP Urine NEGATIVE (< 25 ng/mL); THC Urine NEGATIVE (< 50 ng/mL)
[2024-09-17 19:18] LABS: ALB/GLOB Ratio 1.3 RATIO (0.9-2.4); AST(SGOT) 63 U/L (<=37); Alanine Aminotransfer ALT/SGPT 64 U/L (<=46); Albumin, Serum 4.1 g/dL (3.5-5.0); Alkaline Phosphatase 116 U/L (40-129); Anion Gap 14 (5-15); BUN 4 mg/dL (4-19); BUN/Creat Ratio 6.5 RATIO (10-20); Calcium,Total 8.7 mg/dL (7.6-11.0); Carbon Dioxide 22.2 mmol/L (21.0-32.0); Chloride 94 mmol/L (98-108); EST Glomerular Filtration Rate 113 (>60); Estimated Creatinine Clearance 165.82 ml/min (50-250); Globulin 3.3 g/dL (2.2-4.2); Glucose 176 mg/dL (70-99); Potassium 4.5 mmol/L (3.3-5.1); Protein, Total 7.4 g/dL (5.9-8.4); Sodium Level 131 mmol/L (133-145); Total Bilirubin 0.33 mg/dL (0.00-1.30)
--- OUTSIDE RECORDS SUMMARY | 2024-09-17 19:33 | XMS RPT_ITS | CCD ---
Author Organization [facility] Care Team Providers Care Preschool Adviser Name Role Phone Paintsil, [place] Unavailable Unavailable Kittoe, Joon Unavailable Unavailable Estella Fletcher NP-C Unavailable Unavailab le FranktoJoon gonzalez Unavailable Unavailable Kittoe, Joon Unavailable Unavailable Kittoe, Joon Unavailable Unavailable Ashelfah, Ghasem Unavailable Unavailable Ashelfah, Ghasem Unavailable Unavailable CECI BERNARD Unavailable Unavailable Ashelfah, Ghasem Unavailable Unavailable Ashelfah, Ghasem Unavailable Unavailable Ashelfah, Ghasem Unavailable Unavailable CECI BERNARD Unavailable Unavailable Ashelfah, Ghasem Unavailable Unavailable Ashelfah, Ghasem Unavailable Unavailable Ashelfah, Ghasem Unavailable Unavailable CECI BERNARD Unavailable Unavailable Ashelfah, Ghasem Unavailable Unavailable Ashelfah, Ghasem Unavailable Unavailable Ashelfah, Ghasem Unavailable Unavailable CECI BERNARD Unavailable Unavailable Ashelfah, Ghasem Unavailable Unavailable Ashelfah, Ghasem Unavailable Unavailable Ashelfah, Ghasem Unavailable Unavailable CECI BERNARD Unavailable Unavailable Jeremy, [place] Unavailable Unavailable Ashelfah, Ghasem Unavailable Unavailable Lynda Rasheed Primary Care Provider Lynda Rasheed Primary Care Provider Kathya GALVEZ, Lynda Primary Care Provider Kathya GALVEZ, Lynda Primary Care Provider Kathya GALVEZ, Lynda Primary Care Provider Kathya GALVEZ, Lynda Primary Care Provider Kathya GALVEZ, Lynda Primary Care Provider Dejan EL, Radha L. Unavailable Unavailabl BRYAN Greenberg Consulting Unavailable SHELLY CRUZ Admitting Unavailable SAURABH MORAN Attending Unavailable LISHNEVSKI, LYNDA Primary Care Unavailable CATALINO WADDELL Attending Unavailable LISHNEVSKI, LYNDA Primary Care Unavailable LISHNEVSKI, LYNDA Primary Care Unavailable BRYAN RODRIGUEZ Admitting Unavailable MAYURI, JONATAN Attending Unavailable LISHNEVSKI, LYNDA Primary Care Unavailable JONATAN MCKEON Attending Unavailable CHICHILANRICO, JONATAN Admitting Unavailable ANI, ALI Attending Unavailable ANI, ALI Admitting Unavailable LISHNEVSKI, LYNDA Primary Care Unavailable LISHNEVSKI, LYNDA Primary Care Unavailable BRYAN RODRIGUEZ Consulting Unavailable REDD TEIXEIRA Attending Unavailable JOHN SAHNI Admitting Unavailable ANI, ALI Attending Unavailable LISHNEVSKI, LYNDA Primary Care Unavailable LISHNEVSKI, LYNDA Attending Unavailable LISHNEVSKI, LYNDA Primary Care Unavailable LISHNEVSKI, LYNDA Attending Unavailable LISHNEVSKI, LYNDA Primary Care Unavailable LISHNEVSKI, LYNDA Attending Unavailable LISHNEVSKI, LYNDA Primary Care Unavailable LISHNEVSKI, LYNDA Referring Unavailable LISHNEVSKI, LYNDA Primary Care Unavailable MYRA DARDEN Attending Unavailable LISHNEVSKI, LYNDA Attending Unavailable LISHNEVSKI, LYNDA Primary Care Unavailable ANI, ALI Attending Unavailable LISHNEVSKI, LYNDA Primary Care Unavailable LISHNEVSKI, LYNDA Referring Unavailable LISHNEVSKI, LYNDA Attending Unavailable LISHNEVSKI, LYNDA Primary Care Unavailable LISHNEVSKI, LYNDA Primary Care Unavailable MYRA DARDEN Attending Unavailable MYRA DARDEN Referring Unavailable ANI, ALI Attending Unavailable LISHNEVSKI, LYNDA Primary Care Unavailable LISHNEVSKI, LYNDA Primary Care Unavailable GOYO MELARA Attending Unavailable LISHNEVSKI, LYNDA Primary Care Unavailable GOYO MELARA Attending Unavailable LISHNEVSKI, LYNDA Primary Care Unavailable MAYURI, JONATAN Attending Unavailable CHICHILANRICO, JONATAN Admitting Unavailable Allergies Allergy Classification Reported Allergen(s) Allergy Type Date of Onset Reaction(s) Facility Bee/Wasp/Ant Venom (3 sources) bee venom Substance Allergy 5 Swelling [facility] nickel sulfate (2 sources) nickel sulfate Drug Allergy 5 Rash [facility] Opioid Agonists (2 sources) traMADol Drug Allergy 5 Nausea And Vomiting [facility] (1 source) bee pollen Drug Allergy 8 [facility] Rep[facility] (1 source) nickel Drug Allergy 8 [facility] (1 source) traMADol Drug Allergy 8 [facility] Repository (20 sources) bee venom Propensity to adverse reactions to drug 5 Swelling [place] (11 sources) Honey bee venom Propensity to adverse reactions to drug 5 Swelling [facility] [place] (20 sources) nickel sulfate Drug Allergy 5 [place] (20 sources) traMADol Drug Allergy 5 Nausea [place] Vomiting [place] (7 sources) Other Propensity to adverse reactions 5 Rash [place] (20 sources) Honey bee venom Propensity to adverse reactions 5 Swelling [facility] NEGATED: Highlighted row has been ruled out!Unclassified (5 sources) Other Propensity to adverse reactions 5 Rash [facility] Medications Current Medications Medication Drug Class(es) Dates Sig (Normalized) Sig (Original) amLODIPine 5 mg oral tablet (3 sources) Dihydropyridine Calcium Channel Ghulam Start: 06-10-2021 take 1 tablet by mouth once daily amLODIPine (NORVASC) 5 MG tablet Take 1 tablet by mouth daily 30 tablet 1 06/10/2021 Active Start: 06-09-2021 amLODIPine (NO RVASC) tablet 5 mg calcipotriene 0.05 mg/ml topical cream (20 sources) Vitamin D Analog Start: 08-14-2024 End: 08-14-2024 calcipotriene (Dovonex) 0.005 % cream Indications: Psoriasiform seborrheic dermatitis , Elevated liver enzymes Apply topically 2 times daily. 60 g 3 08/14/2024 08/14/2024 Active Start: 07-16-2022 End: 08-06-2024 calcipotriene (Dovonex) 0.00 5 % cream Indications: Psoriasiform seborrheic dermatitis , Elevated liver enzymes Apply topically 2 times daily. 60 g 3 06/02/2024 08/06/2024 Discontinued (Stop taking at discharge) Start: 06-12-2022 End: 07-14-2022 calcipotriene (Dovonex) 0.00 5 % cream Indications: Psoriasis Apply topically 2 times daily. 60 g 2 06/12/2022 07/14/2022 Discontinued (Reorder) Start: 02-20-2021 calcipotriene (DOVONEX) 0.005 % ointment Apply topically 2 times daily. 1 each 2 02/20/2021 Active clobetasol propionate 0.5 mg/ml topical cream (20 sources) Corticosteroid Start: 08-14-2024 End: 08-14-2024 clobetasol (Temovate) 0.05 % cream Indications: Psoriasiform seborrheic dermatitis , Elevated liver enzymes Apply topically 2 times daily. 60 g 3 08/14/2024 08/14/2024 Active Start: 06-03-2024 End: 06-04-2024 apply 1 dose topically twice daily Topical, 2 times daily, First dose on Sat06/03/24 at 0945 Start: 04-10-2024 End: 04-12-2024 apply 1 dose topically twice daily Topical, 2 times daily, First dose on Sat04/10/24 at 0900 Start: 02-05-2024 End: 08-06-2024 clobetasol (Temovate) 0.05 % cream Indications: Psoriasiform seborrheic dermatitis , Elevated liver enzymes Apply topically 2 times daily. 60 g 3 06/02/2024 08/06/2024 Discontinued (Stop taking at discharge) Start: 06-12-2022 End: 05-23-2023 clobetasol (Temovate) 0.05 % cream Apply topically 2 times daily. 15 g 3 09/25/2022 05/23/2023 Active Start: 02-20-2021 End: 02-05-2024 apply 1 dose topically twice daily Topical, 2 times daily, First dose on Sat05/21/23 at 0900 cyclobenzaprine hydrochloride 10 mg oral tablet (5 sources) Muscle Relaxant Start: 08-14-2024 End: 10-13-2024 take 1 tablet by mouth once daily as needed for muscle spasms cyclobenzaprine (Flexeril) 10 MG tablet Take 1 tablet (10 mg) by mouth Nightly as needed for muscle spasms. 30 tablet 1 08/14/2024 10/13/2024 Active Start: 06-05-2019 End: 06-15-2019 take 1 tablet by mouth three times daily as needed for muscle spasms cyclobenzaprine (FLEXERIL) 10 MG tablet Take 1 tablet by mouth 3 times daily as needed for Muscle spasms 21 tablet 0 06/05/2019 06/15/2019 Active Start: 03-08-2019 End: 03-18-2019 take 1 tablet by mouth three times daily as needed for muscle spasms cyclobenzaprine (FLEXERIL) 10 MG tablet Take 1 tablet by mouth 3 times daily as needed for Muscle spasms 15 tablet 0 03/08/2019 03/18/2019 Active gabapentin 600 mg oral tablet (20 sources) Anti-epileptic Agent Start: 08-14-2024 End: 08-14-2025 take 1 tablet by mouth three times daily gabapentin (Neurontin) 600 MG tablet Take 1 tablet (600 mg) by mouth 3 times daily. 90 tablet 2 08/14/2024 08/14/2025 Active Start: 08-06-2024 End: 08-14-2024 take 2 capsules by mouth three times daily gabapentin (Neurontin) 400 MG capsule Take 2 capsules (800 mg) by mouth 3 times daily for 6 days. 36 capsule 08/06/2024 11:46 AM EDT 08/06/2024 08/14/2024 Discontinued (Therapy completed) Start: 08-04-2024 End: 08-06-2024 take 800 mg by mouth three times daily 800 mg, Oral, 3 times daily, First dose (after last modification) on Sat08/04/24 at 1400 Start: 08-03-2024 End: 08-04-2024 take 600 mg by mouth three times daily 600 mg, Oral, 3 times daily, First dose on Sat08/03/24 at 2100 Start: 06-03-2024 End: 06-04-2024 take 600 mg by mouth three times daily 600 mg, Oral, 3 times daily, First dose on Sat06/03/24 at 0945 Start: 05-08-2024 End: 05-10-2024 take 600 mg by mouth three times daily 600 mg, Oral, 3 times daily, First dose on Sat05/08/24 at 0930 Start: 01-23-2024 End: 05-20-2025 take 2 capsules by mouth three times daily gabapentin (Neurontin) 300 MG capsule Indications: Psoriasiform seborrheic dermatitis , Elevated liver enzymes Take 2 capsules (600 mg) by mouth 3 times daily. 180 capsule 3 05/20/2024 08/06/2024 Discontinued (Stop taking at discharge) Start: 01-21-2024 End: 01-24-2024 take 600 mg by mouth three times daily 600 mg, Oral, 3 times daily, First dose on Sat01/21/24 at 0945 Start: 11-28-2023 End: 11-30-2023 take 600 mg by mouth three times daily 600 mg, Oral, 3 times daily, First dose on Sat11/28/23 at 0900 Start: 07-29-2023 End: 07-31-2023 gabapentin (Neurontin) capsu le 600 mg Start: 07-09-2023 End: 07-11-2023 take 600 mg by mouth three times daily 600 mg, Oral, 3 times daily, First dose on Sat07/09/23 at 0900 Start: 02-09-2023 End: 02-11-2023 take 600 mg by mouth three times daily 600 mg, Oral, 3 times daily, First dose on Sat02/09/23 at 0945 Start: 09-24-2022 End: 01-24-2024 take 1 tablet by mouth three times daily gabapentin (Neurontin) 600 MG tablet Indications: Chronic left shoulder pain Take 1 tablet (600 mg) by mouth 3 times daily. 90 tablet 12/03/2023 01/24/2024 Discontinued (Stop taking at discharge) Start: 09-10-2022 End: 09-14-2022 take 600 mg by mouth three times daily 600 mg, Oral, 3 times daily, First dose on Sat09/10/22 at 1605 Start: 08-21-2022 End: 09-22-2022 take 1 tablet by mouth three times daily gabapentin (Neurontin) 600 MG tablet Indications: Chronic left shoulder pain Take 1 tablet (600 mg) by mouth 3 times daily. 90 tablet 0 08/21/2022 09/22/2022 Discontinued (Reorder) Start: 07-16-2022 End: 08-15-2022 take 1 tablet by mouth three times daily gabapentin (Neurontin) 600 MG tablet Indications: Chronic left shoulder pain Take 1 tablet (600 mg) by mouth 3 times daily. 90 tablet 0 07/16/2022 08/15/2022 Active Start: 02-02-2022 End: 07-14-2022 take 1 tablet by mouth three times daily gabapentin (Neurontin) 600 MG tablet Indications: Chronic left shoulder pain Take 1 tablet (600 mg) by mouth 3 times daily. 90 tablet 0 06/12/2022 07/14/2022 Discontinued (Reorder) Start: 09-04-2021 End: 10-04-2021 take 1 tablet by mouth three times daily gabapentin (NEURONTIN) 600 MG tablet Take 1 tablet by mouth 3 times daily for 30 days. 90 tablet 0 09/04/2021 10/04/2021 Active Start: 06-07-2021 take 600 mg by mouth three times daily 600 mg, Oral, 3 TIMES DAILY, First dose on Sat06/07/21 at 0900 Start: 05-18-2021 End: 06-17-2021 take 1 tablet by mouth three times daily gabapentin (NEURONTIN) 600 MG tablet Take 1 tablet by mouth 3 times daily for 30 days. 90 tablet 3 05/18/2021 06/17/2021 Active Start: 02-06-2021 take 1 tablet by lizz th three times daily gabapentin (NEURONTIN) 600 MG tablet Take 1 tablet by mouth 3 times daily for 30 days. 90 tablet 3 02/06/2021 Active Start: 10-17-2020 take 1 tablet by lizz th three times daily gabapentin (NEURONTIN) 600 MG tablet Take 1 tablet by mouth 3 times daily for 30 days. 90 tablet 3 10/17/2020 Active Start: 08-22-2020 End: 09-21-2020 take 1 tablet by mouth three times daily gabapentin (NEURONTIN) 600 MG tablet Take 1 tablet by mouth 3 times daily for 30 days. 90 tablet 1 08/22/2020 09/21/2020 Active Start: 04-04-2020 take 600 mg by mouth three times daily 600 mg, Oral, 3 TIMES DAILY, First dose on Mounika 06/09/20 at 1400 Start: 09-11-2019 take 1 tablet by lizz th three times daily gabapentin (NEURONTIN) 600 MG tablet Take 1 tablet by mouth 3 times daily for 30 days. 90 tablet 3 09/11/2019 Active Start: 05-22-2019 End: 06-21-2019 take 1 tablet by mouth three times daily gabapentin (NEURONTIN) 600 MG tablet Take 1 tablet by mouth 3 times daily for 30 days. 90 tablet 3 05/22/2019 Active Start: 01-29-2019 End: 03-01-2019 take 1 tablet by mouth three times daily gabapentin (NEURONTIN) 600 MG tablet Take 1 tablet by mouth 3 times daily for 31 days. 90 tablet 3 01/29/2019 Active ibuprofen 800 mg oral tablet (20 sources) Nonsteroidal Anti-inflammatory Drug Start: 08-06-2024 End: 08-14-2024 take 1 tablet by mouth every eight hours as needed for pain ibuprofen 800 MG tablet Take 1 tablet (800 mg) by mouth every 8 hours as needed for moderate pain (4-6) for up to 6 days. 18 tablet 08/06/2024 11:46 AM EDT 08/06/2024 08/14/2024 Active Start: 08-03-2024 End: 08-06-2024 take 1 tablet by mouth every six hours as needed 400 mg, Oral, Every 6 hours PRN, pain 1-10, Starting on Sat08/03/24 at 1903 Start: 04-10-2024 End: 04-12-2024 take 1 tablet by mouth every six hours as needed for fever and headache 600 mg, Oral, Every 6 hours PRN, fever, headaches, pain 1-10, Starting on Sat04/10/24 at 0828, OK with tylenol if tylenol ordered. Start: 01-20-2024 End: 01-24-2024 take 1 tablet by mouth every six hours as needed for pain and pain and pain and fever and headache 400 mg, Oral, Every 6 hours PRN, mild pain (1-3), moderate pain (4-6), severe pain (7-10), fever, headaches, Starting on Sat01/20/24 at 2253 Start: 07-08-2023 End: 07-11-2023 take 1 tablet by mouth every six hours as needed ibuprofen tablet 400 mg Start: 03-19-2023 End: 03-19-2023 ibuprofen tablet 600 mg Start: 02-17-2023 End: 02-24-2023 take 1 tablet by mouth four times daily as needed for pain ibuprofen 600 MG tablet Take 1 tablet (600 mg) by mouth 4 times daily as needed for mild pain (1-3) for up to 7 days. 30 tablet 0 02/17/2023 02/24/2023 Active Start: 09-10-2022 End: 09-14-2022 take 1 tablet by mouth every six hours as needed 400 mg, Oral, Every 6 hours PRN, pain 1-10, Starting on Sat09/10/22 at 1559 Start: 11-08-2019 take 1 tablet by lizz th every six hours as needed for pain ibuprofen (ADVIL;MOTRIN) 600 MG tablet Take 1 tablet by mouth every 6 hours as needed for Pain 30 tablet 1 11/08/2019 Active Start: 03-08-2019 End: 03-15-2019 take 1 tablet by mouth every eight hours as needed for pain ibuprofen (ADVIL;MOTRIN) 800 MG tablet Take 1 tablet by mouth every 8 hours as needed for Pain 20 tablet 0 03/08/2019 Active lidocaine 0.05 mg/mg medicated patch (13 sources) Antiarrhythmic, Amide Local Anesthetic Start: 08-10-2024 End: 08-15-2024 apply 1 dose transdermal route once daily, then apply 1 dose transdermal route every twelve hours lidocaine (Lidoderm) 5 % patch Apply 1 patch topically daily for 5 days. Remove & discard patch within 12 hours or as directed by . 5 patch 08/10/2024 08/15/2024 Active Start: 08-03-2024 End: 08-06-2024 apply 1 dose transdermal route once daily, then apply 1 dose transdermal route every twelve hours 1 patch, TransDERmal, Administer over 12 Hours, Daily, First dose on Sat08/03/24 at 1720, Apply patch to right rib rash. Patch may remain in place for up to 12 hours in any 24 hour period. Start: 11-08-2019 End: 11-13-2019 lidocaine viscous hcl (XYLOC NILE) 2 % SOLN solution Take 15 mLs by mouth as needed for Irritation 100 mL 0 11/08/2019 11/13/2019 Active Start: 03-08-2019 End: 08-19-2019 apply 1 dose transdermal route once daily lidocaine (LIDODERM) 5 % Place 1 patch onto the skin daily 12 hours on, 12 hours off. 30 patch 0 03/17/2019 08/19/2019 Discontinued methylPREDNISolone 4 mg oral tablet (3 sources) Corticosteroid Start: 06-16-2024 End: 06-23-2024 methylPREDNISolone (Medrol Dospak) 4 MG tablets Indications: Lumbar back pain Take as directed on package. 21 tablet 06/16/2024 06/23/2024 Active multivitamin 1 tablet (1 source) Start: 06-07-2021 take 1 tablet by mouth once daily 1 tablet, Oral, DAILY, First dose on Sat06/07/21 at 0900 ondansetron (ZOFRAN-ODT) disintegrating tablet 4 mg (2 sources) Start: 09-27-2021 ondansetron (ZOFRAN-ODT) disintegrating tablet 4 mg Start: 06-07-2021 ondansetron (Z OFRAN-ODT) disintegrating tablet 4 mg pantoprazole 40 mg delayed release oral tablet (20 sources) Proton Pump Inhibitor Start: 08-14-2024 End: 08-14-2024 take 1 tablet by mouth once daily pantoprazole (ProtoNix) 40 MG EC tablet Indications: Psoriasiform seborrheic dermatitis , Elevated liver enzymes Take 1 tablet (40 mg) by mouth daily. 90 tablet 1 08/14/2024 08/14/2024 Active Start: 05-27-2023 End: 08-06-2024 take 40 mg by mouth once daily 40 mg, Oral, Daily, Fir st dose on Sat08/03/24 at 1910, Do not crush, chew, or split. Start: 09-18-2022 End: 05-23-2023 take 1 tablet by mouth once daily before breakfast pantoprazole (ProtoNix) 40 MG EC tablet Indications: Elevated liver enzymes Take 1 tablet (40 mg) by mouth every morning (before breakfast). 30 tablet 3 09/25/2022 Active Start: 07-21-2022 End: 07-23-2022 pantoprazole (ProtoNix) inje ction 40 mg Start: 07-16-2022 End: 09-14-2022 take 1 tablet by mouth once daily before breakfast pantoprazole (ProtoNix) 40 MG EC tablet Indications: Elevated liver enzymes Take 1 tablet (40 mg) by mouth every morning (before breakfast). 30 tablet 3 08/01/2022 09/14/2022 Discontinued (Reorder) Start: 06-09-2021 End: 07-14-2022 take 1 tablet by mouth once daily before breakfast pantoprazole (ProtoNix) 40 MG EC tablet Indications: Elevated liver enzymes Take 1 tablet (40 mg) by mouth every morning (before breakfast). 30 tablet 3 06/12/2022 07/14/2022 Discontinued (Reorder) Start: 06-11-2020 take 1 tablet by lizz th once daily before breakfast pantoprazole (PROTONIX) 40 MG tablet Take 1 tablet by mouth every morning (before breakfast) 30 tablet 0 06/11/2020 Active Start: 06-10-2020 pantoprazole ( PROTONIX) tablet 40 mg penicillin v potassium 250 m g oral tablet (3 sources) Start: 02-18-2023 End: 02-25-2023 penicillin V (Veetid) 250 MG tablet Take 1 tablet (250 mg) by mouth in the morning and 1 tablet (250 mg) at noon and 1 tablet (250 mg) in the evening and 1 tablet (250 mg) before bedtime. Do all this for 7 days. 28 tablet 0 02/18/2023 02/25/2023 Active Start: 11-08-2019 End: 11-18-2019 take 1 tablet by mouth four times daily penicillin v potassium (VEETID) 250 MG tablet Take 1 tablet by mouth 4 times daily for 10 days 40 tablet 0 11/08/2019 11/18/2019 Active Promethazine (1 source) Phenothiazine Start: 06-09-2020 promethazine (PHENERGAN) tablet 12.5 mg sodium chloride flush 0.9 % injection 3 mL (1 source) Start: 06-06-2021 sodium chloride flush 0.9 % injection 3 mL valACYclovir 1000 mg oral tablet (9 sources) Herpesvirus Nucleoside Analog DNA Polymerase Inhibitor, Herpes Simplex Virus Nucleoside Analog DNA Polymerase Inhibitor, Herpes Zoster Virus Nucleoside Analog DNA Polymerase Inhibitor Start: 08-06-2024 End: 08-14-2024 take 1 tablet by mouth three times daily valACYclovir (Valtrex) 1 g tablet Take 1 tablet (1,000 mg) by mouth 3 times daily for 5 days. 15 tablet 08/06/2024 11:46 AM EDT 08/06/2024 08/14/2024 Active Start: 08-05-2024 End: 08-06-2024 take 1000 mg by mouth three times daily 1,000 mg, Oral, 3 times daily, First dose on Sat08/05/24 at 1400, For 6 days, Coverage: Varicella zoster, Infection Site: Other, Specify: right flank Completed/Discontinued Medications Medication Drug Class(es) Dates Sig (Normalized) Sig (Original) acamprosate calcium 333 mg delayed release oral tablet (13 sources) Start: 07-30-2023 End: 01-24-2024 take 1 tablet by mouth three times daily acamprosate (Campral) 333 MG EC tablet Take 1 tablet (333 mg) by mouth 3 times daily. Do not crush, chew, or split. 90 tablet 07/31/2023 01/24/2024 Discontinued (Stop taking at discharge) acetaminophen 325 mg oral tablet (15 sources) Start: 06-02-2024 End: 06-04-2024 take 1 tablet by mouth every six hours as needed for pain and pain and headache and fever 650 mg, Oral, Every 6 hours PRN, mild pain (1-3), moderate pain (4-6), headaches, fever, severe pain (7-10), Starting on Sat06/02/24 at 1926 Start: 05-07-2024 End: 05-10-2024 take 1 tablet by mouth every six hours as needed for pain and pain and headache and fever 650 mg, Oral, Every 6 hours PRN, mild pain (1-3), moderate pain (4-6), headaches, fever, severe pain (7-10), Starting on Sat05/07/24 at 2142 Start: 11-28-2023 End: 11-30-2023 take 1 tablet by mouth every six hours as needed for pain and fever acetaminophen (Tylenol) tablet 650 mg Start: 07-27-2023 End: 07-31-2023 take 1 tablet by mouth every six hours as needed for pain and pain and headache and fever acetaminophen (Tylenol) tablet 650 mg Start: 05-21-2023 End: 05-23-2023 take 1 tablet by mouth every six hours as needed for pain and fever acetaminophen (Tylenol) tablet 650 mg Start: 02-08-2023 End: 02-11-2023 take 1 tablet by mouth every six hours as needed for pain and pain and headache and fever acetaminophen (Tylenol) tablet 650 mg Start: 09-27-2021 acetaminophen (TYLENOL) tablet 650 mg Start: 06-07-2021 acetaminophen (TYLENOL) tablet 650 mg Start: 06-09-2020 acetaminophen (TYLENOL) tablet 650 mg acetaminophen 325 mg / oxyCODONE hydrochloride 5 mg oral tablet (2 sources) Opioid Agonist Start: 02-17-2023 End: 02-17-2023 oxyCODONE-acetaminophen (Percocet) 5-325 MG per tablet 2 tablet acyclovir 200 mg oral capsule (4 sources) Herpesvirus Nucleoside Analog DNA Polymerase Inhibitor, Herpes Simplex Virus Nucleoside Analog DNA Polymerase Inhibitor, Herpes Zoster Virus Nucleoside Analog DNA Polymerase Inhibitor Start: 08-04-2024 End: 08-05-2024 take 800 mg by mouth five times daily 800 mg, Oral, 5 times daily, First dose (after last reorder) on Sat08/04/24 at 0900, For 7 days, Coverage: Varicella zoster, Infection Site: Mucocutaneous Start: 08-03-2024 End: 08-03-2024 take 800 mg by mouth once 800 mg, Oral, Once, On Sat at 1910, For 1 dose, Coverage: Varicella zoster, Infection Site: Mucocutaneous [id number] 200 actuat albuter ol 0.09 mg/actuat metered dose inhaler (20 sources) beta2-Adrenergic Agonist Start: 08-03-2024 End: 08-06-2024 Start: 05-08-2024 End: 05-10-2024 Start: 12-03-2023 End: 06-04-2024 take 2 puff(s) by inhalation every six hours as needed for wheezing albuterol 108 (90 Base) MCG/ACT inhaler Indications: Psoriasiform seborrheic dermatitis , Elevated liver enzymes Inhale 2 puffs every 6 hours as needed for wheezing or shortness of breath. 3 each 05/20/2024 Active Start: 07-29-2023 End: 07-31-2023 take 2 puff(s) by inhalation every six hours as needed for wheezing 2 puff, Inhalation, Every 6 hours PRN, wheezing, shortness of breath, Starting on Sat07/29/23 at 0936 Start: 07-09-2023 End: 07-11-2023 take 2 puff(s) by inhalation every six hours as needed for wheezing 2 puff, Inhalation, Every 6 hours PRN, wheezing, shortness of breath, Starting on Tu07/09/23 at 0233 Start: 05-22-2023 End: 05-23-2023 albuterol 108 (90 Base) MCG/ ACT inhaler 2 puff Start: 05-20-2023 albuterol (2.5 MG/3ML) 0.083% nebulizer solution 2.5 mg Start: 02-09-2023 End: 02-11-2023 take 2 puff(s) by inhalation every six hours as needed for wheezing 2 puff, Inhalation, Every 6 hours PRN, wheezing, shortness of breath, Starting on 02/09/23 at 0939 Start: 12-10-2022 End: 12-03-2023 take 2 puff(s) by inhalation every six hours as needed for wheezing albuterol 108 (90 Base) MCG/ACT inhaler Inhale 2 puffs every 6 hours as needed for wheezing or shortness of breath. 18 g 1 08/01/2023 12/03/2023 Discontinued (Reorder) Start: 09-18-2022 End: 12-07-2022 take 2 puff(s) by inhalation every six hours as needed for wheezing albuterol 108 (90 Base) MCG/ACT inhaler Inhale 2 puffs every 6 hours as needed for wheezing or shortness of breath. 18 g 3 09/25/2022 12/07/2022 Discontinued (Reorder) Start: 09-10-2022 End: 09-14-2022 take 2 puff(s) by inhalation every six hours as needed for wheezing 2 puff, Inhalation, Every 6 hours PRN, wheezing, shortness of breath, Starting on 09/10/22 at 1557 Start: 07-21-2022 End: 07-23-2022 take 2 puff(s) by inhalation every six hours as needed for wheezing 2 puff, Inhalation, Every 6 hours PRN, wheezing, shortness of breath, Starting on 07/21/22 at 1829 Start: 07-16-2022 End: 09-14-2022 take 2 puff(s) by inhalation every six hours as needed for wheezing albuterol 108 (90 Base) MCG/ACT inhaler Inhale 2 puffs every 6 hours as needed for wheezing or shortness of breath. 18 g 3 07/16/2022 09/14/2022 Discontinued (Reorder) Start: 10-03-2021 End: 07-14-2022 take 2 puff(s) by inhalation every six hours as needed albuterol 108 (90 Base) MCG/ACT inhaler Inhale 2 puffs every 6 hours as needed. 0 10/03/2021 07/14/2022 Discontinued (Reorder) Start: 01-23-2021 take 2 puff(s) by in halation every six hours as needed for wheezing albuterol sulfate HFA (PROAIR HFA) 108 (90 Base) MCG/ACT inhaler Inhale 2 puffs into the lungs every 6 hours as needed for Wheezing 1 each 1 01/23/2021 Active Start: 08-26-2020 take 2 puff(s) by in halation every six hours as needed for wheezing albuterol sulfate HFA (PROAIR HFA) 108 (90 Base) MCG/ACT inhaler Inhale 2 puffs into the lungs every 6 hours as needed for Wheezing 3 Inhaler 1 08/26/2020 Active Start: 04-04-2020 take 2 puff(s) by in halation every six hours as needed for wheezing albuterol sulfate HFA (PROAIR HFA) 108 (90 Base) MCG/ACT inhaler Inhale 2 puffs into the lungs every 6 hours as needed for Wheezing 3 Inhaler 3 04/04/2020 Active Start: 09-11-2019 take 2 puff(s) by in halation every six hours as needed for wheezing albuterol sulfate HFA (PROAIR HFA) 108 (90 Base) MCG/ACT inhaler Inhale 2 puffs into the lungs every 6 hours as needed for Wheezing 3 Inhaler 3 09/11/2019 Active Start: 01-29-2019 take 2 puff(s) by in halation every six hours as needed for wheezing albuterol sulfate HFA (PROAIR HFA) 108 (90 Base) MCG/ACT inhaler Inhale 2 puffs into the lungs every 6 hours as needed for Wheezing 3 Inhaler 1 01/29/2019 Active albuterol 0.833 mg/ml / ipratropium bromide 0.167 mg/ml inhalation solution (12 sources) Anticholinergic, beta2-Adrenergic Agonist Start: 01-21-2024 End: 01-24-2024 3 mL, Nebulization, Every 4 hours PRN, wheezing, Starting on Sat01/21/24 at 0703, 2nd line for Wheezing or SOB if albuterol inhaler doesn't help Start: 07-27-2023 End: 07-31-2023 ipratropium-albuterol (Duo-N eb) 0.5-2.5 mg/3 mL nebulizer solution 3 mL Start: 07-09-2023 End: 07-11-2023 ipratropium-albuterol (Duo-N eb) 0.5-2.5 mg/3 mL nebulizer solution 3 mL Start: 06-08-2021 ipratropium-al buterol (DUONEB) nebulizer solution 1 ampule Start: 06-09-2020 1 ampule, Inha lation, EVERY 4 HOURS PRN, Shortness of Breath, Starting Sat06/09/20 at 1230 aluminum & magnesium hydroxide-simethicone (Mylanta) 200-200-20 MG/5ML oral suspension 20 mL (2 sources) Start: 11-28-2023 End: 11-30-2023 take 20 mL by mouth every six hours as needed for gastroesophageal reflux disease aluminum & magnesium hydroxide-simethicone (Mylanta) 200-200-20 MG/5ML oral suspension 20 mL aluminum hydroxide 40 mg/ml / magnesium hydroxide 40 mg/ml / simethicone 4 mg/ml oral suspension (13 sources) Start: 08-03-2024 End: 08-06-2024 Start: 06-02-2024 End: 06-04-2024 take 10 mL by mouth three times daily as needed 10 mL, Oral, 3 times daily PRN, indigestion, Starting on Sat06/02/24 at 1926 Start: 05-07-2024 End: 05-10-2024 take 10 mL by mouth three times daily as needed 10 mL, Oral, 3 times daily PRN, indigestion, Starting on Sat05/07/24 at 2142 Start: 07-27-2023 End: 07-31-2023 aluminum & magnesium hydroxide-simethicone (Mylanta) 200-200-20 MG/5ML oral suspension 10 mL Start: 07-09-2023 End: 07-11-2023 aluminum & magnesium hydroxide-simethicone (Mylanta) 200-200-20 MG/5ML oral suspension 10 mL Start: 02-08-2023 End: 02-11-2023 aluminum & magnesium hydroxide-simethicone (Mylanta) 200-200-20 MG/5ML oral suspension 10 mL Start: 06-09-2020 aluminum & mag nesium hydroxide-simethicone (MAALOX) 200-200-20 MG/5ML suspension 30 mL amoxicillin 875 mg / clavulanate 125 mg oral tablet (2 sources) Penicillin-class Antibacterial Start: 08-19-2019 End: 08-26-2019 take 1 tablet by mouth twice daily amoxicillin-clavulanate (AUGMENTIN) 875-125 MG per tablet Indications: Localized swelling, mass and lump, neck Take 1 tablet by mouth 2 times daily for 7 days 14 tablet 0 08/19/2019 08/26/2019 baclofen 10 mg oral tablet (2 sources) gamma-Aminobutyric Acid-ergic Agonist Start: 08-04-2024 End: 08-06-2024 take 10 mg by mouth three times daily 10 mg, Oral, 3 times daily, First dose on Sat08/04/24 at 1400 bisacodyl 10 mg rectal suppository (2 sources) Stimulant Laxative Start: 01-20-2024 End: 01-24-2024 take 10 mg rectal route every twenty-four hours as needed for constipation 10 mg, Rectal, Daily PRN, constipation, Starting on Sat01/20/24 at 2249, 2nd line for treatment of constipation - give scheduled (in addition to 1st line agent) if no bowel movement in past 48 hours busPIRone hydrochloride 10 mg oral tablet (2 sources) Start: 01-20-2024 End: 01-24-2024 take 1 tablet by mouth every eight hours as needed 10 mg, Oral, Every 8 hours PRN, Anxiety, Starting on Sat01/20/24 at 2251 calcium chloride 0.0014 meq/ml / potassium chloride 0.004 meq/ml / sodium chloride 0.103 meq/ml / sodium lactate 0.028 meq/ml injectable solution (6 sources) Start: 07-08-2023 End: 07-08-2023 1,000 mL, IntraVENous, at 500 mL/hr, Administer over 2 Hours, Once, On Sat07/08/23 at 1930, For 1 dose Start: 09-10-2022 End: 09-10-2022 lactated ringers bolus 1,000 mL Start: 06-06-2021 End: 06-09-2021 lactated ringers infusion cefTRIAXone (ROCEPHIN) 1000 mg IVPB in NS 50ml minibag (1 source) Start: 06-06-2021 End: 06-07-2021 cefTRIAXone (ROCEPHIN) 1000 mg IVPB in NS 50ml minibag cefTRIAXone sodium 1,000 mg in dextrose 5 % 50 mL IVPB (add-vantage) (1 source) Start: 06-07-2021 End: 06-08-2021 cefTRIAXone sodium 1,000 mg in dextrose 5 % 50 mL IVPB (add-vantage) cloNIDine hydrochloride 0.1 mg oral tablet (7 sources) Central alpha-2 Adrenergic Agonist Start: 08-03-2024 End: 08-06-2024 take 1 tablet by mouth every six hours as needed 0.1 mg, Oral, Every 6 hours PRN, withdrawal, Starting on Sat08/03/24 at 1905, Hold for a systolic bp og 90 or below Start: 06-04-2024 End: 06-04-2024 take 0.1 mg by mouth once 0.1 mg, Oral, Once, On Mounika at 1015, For 1 dose, HOLD if SBP Start: 04-11-2024 End: 04-12-2024 take 1 tablet by mouth every four hours 0.1 mg, Oral, Every 4 hours, First dose on 04/11/24 at 1100, HOLD if sleeping, sedated, SBP Start: 06-10-2020 End: 06-10-2020 cloNIDine (CATAPRES) tablet 0.1 mg dexamethasone phosphate 10 mg/ml injectable solution (1 source) Corticosteroid Start: 06-05-2019 End: 06-05-2019 dexamethasone (DECADRON) injection 8 mg diazePAM 5 mg oral tablet (8 sources) Benzodiazepine Start: 08-05-2024 End: 08-06-2024 take 1 tablet by mouth every six hours 5 mg, Oral, Every 6 hours, First dose (after last modification) on Sat08/05/24 at 1330, OK to HOLD if overly sedated Start: 08-03-2024 End: 08-06-2024 take 1 tablet by mouth every six hours as needed 10 mg, Oral, Every 6 hours PRN, alcohol withdrawal (ok to give in between scheduled doses if CIWA > 6), Starting on Sat08/04/24 at 0923 Start: 07-10-2023 End: 07-10-2023 diazePAM (Valium) tablet 2 m g dicyclomine hydrochloride 10 mg oral capsule (4 sources) Anticholinergic Start: 08-03-2024 End: 08-06-2024 Start: 04-10-2024 End: 04-12-2024 take 20 mg by mouth three times daily as needed 20 mg, Oral, 3 times daily PRN, abdominal cramps, Starting on Sat04/10/24 at 0826 doxepin hydrochloride 10 mg oral capsule (2 sources) Tricyclic Antidepressant Start: 01-20-2024 End: 01-24-2024 take 10 mg by mouth once daily as needed for sleep 10 mg, Oral, Nightly PRN, sleep, Starting on Sat01/20/24 at 2250, 2nd line after melatonin 0.4 ml enoxaparin sodium 100 mg/ml prefilled syringe (4 sources) Low Molecular Weight Heparin Start: 11-28-2023 End: 11-30-2023 inject 40 mg by subcutaneous injection every twenty-four hours 40 mg, SubCUTAneous, Every 24 hours scheduled (Daily), First dose on Sat11/28/23 at 0900, Indication of Use: Prophylaxis-DVT/PE, Indications: Prophylaxis of Venous Thromboembolism Start: 05-21-2023 End: 05-23-2023 enoxaparin (Lovenox) syringe 40 mg etodolac 400 mg oral tablet (3 sources) Nonsteroidal Anti-inflammatory Drug Start: 03-17-2019 End: 08-31-2019 take 1 tablet by mouth twice daily as needed for pain etodolac (LODINE) 400 MG tablet Indications: Back pain of lumbosacral region with sciatica Take 1 tablet by mouth 2 times daily as needed (muscle pain) 60 tablet 1 03/17/2019 08/31/2019 Discontinued (LIST CLEANUP) famotidine 20 mg oral tablet (2 sources) Histamine-2 Receptor Antagonist Start: 09-11-2022 End: 09-14-2022 famotidine (Pepcid) tablet 20 mg folic acid 1 mg oral tablet (20 sources) Start: 04-13-2024 End: 04-13-2025 take 1 mg by mouth once daily 1 mg, Oral, Daily, First dose on Sat08/03/24 at 1910 Start: 04-09-2024 End: 04-12-2024 take 1 mg by mouth once daily 1 mg, Oral, Daily, First dose on Sat04/10/24 at 0900 Start: 01-21-2024 End: 01-24-2024 take 1 mg by mouth once daily 1 mg, Oral, Daily, First dose on Sat01/21/24 at 0900 Start: 11-28-2023 End: 11-30-2023 take 1 mg by mouth once daily 1 mg, Oral, Daily, First dose on Sat11/28/23 at 0900 Start: 07-08-2023 End: 07-11-2023 folic acid (Folvite) tablet 1 mg Start: 05-21-2023 End: 05-23-2023 folic acid (Folvite) tablet 1 mg Start: 02-08-2023 End: 02-11-2023 folic acid (Folvite) tablet 1 mg Start: 09-10-2022 End: 09-14-2022 take 1 mg by mouth once daily 1 mg, Oral, Daily, First dose on Sat09/10/22 at 1605 Start: 07-21-2022 End: 07-23-2022 take 1 mg by mouth once daily 1 mg, Oral, Daily, First dose on Sat07/21/22 at 1830 Start: 09-27-2021 folic acid (FO LVITE) tablet 1 mg Start: 06-07-2021 take 1 mg by mouth once daily 1 mg, Oral, DAILY, First dose on Sat06/07/21 at 0900 Start: 06-10-2020 folic acid (FO LVITE) tablet 1 mg hydrALAZINE hydrochloride 10 mg oral tablet (6 sources) Arteriolar Vasodilator Start: 06-02-2024 End: 06-04-2024 take 10 mg by mouth three times daily as needed for hypertension 10 mg, Oral, 3 times daily PRN, Hypertension (give if SBP > 180 and/or DBP > 120), Starting on Sat06/02/24 at 1926 Start: 05-22-2023 End: 05-22-2023 hydrALAZINE (Apresoline) inj ection 20 mg Start: 09-28-2021 End: 09-28-2021 hydrALAZINE (APRESOLINE) inj ection 5 mg hydrOXYzine pamoate 25 mg oral capsule (16 sources) Antihistamine Start: 08-04-2024 End: 08-06-2024 take 1 capsule by mouth every six hours as needed for anxiety 50 mg, Oral, Every 6 hours PRN, anxiety, itching, Starting on Sat08/04/24 at 0845 Start: 06-02-2024 End: 06-04-2024 take 1 capsule by mouth every six hours as needed for anxiety 50 mg, Oral, Every 6 hours PRN, allergies, anxiety, Starting on Sat06/02/24 at 1926 Start: 05-07-2024 End: 05-10-2024 take 1 capsule by mouth every six hours as needed for anxiety 50 mg, Oral, Every 6 hours PRN, allergies, anxiety, Starting on Sat05/07/24 at 2142 Start: 04-10-2024 End: 04-12-2024 take 1 capsule by mouth every six hours as needed for anxiety 50 mg, Oral, Every 6 hours PRN, anxiety, Starting on Sat04/10/24 at 0827, HOLD if sleeping, sedated or unsteady on feet. If holding because unsteady - RN my decide to give anyway provided the patient REMAINS IN BED. Start: 07-27-2023 End: 07-31-2023 take 1 capsule by mouth every six hours as needed for anxiety hydrOXYzine pamoate (Vistaril) capsule 50 mg Start: 07-08-2023 End: 07-11-2023 take 1 capsule by mouth every six hours as needed for anxiety hydrOXYzine pamoate (Vistaril) capsule 50 mg Start: 02-08-2023 End: 02-11-2023 take 1 capsule by mouth every six hours as needed for anxiety hydrOXYzine pamoate (Vistaril) capsule 50 mg Start: 09-10-2022 End: 09-14-2022 take 1 capsule by mouth every six hours as needed for anxiety 50 mg, Oral, Every 6 hours PRN, anxiety, Starting on 09/10/22 at 1559 iopamidol (Isovue-370) 76 % injection 100 mL (2 sources) Start: 05-20-2023 End: 05-20-2023 iopamidol (Isovue-370) 76 % injection 100 mL iopamidol (ISOVUE-370) 76 % injection 75 mL (1 source) Start: 06-06-2021 End: 06-06-2021 iopamidol (ISOVUE-370) 76 % injection 75 mL iopamidol (Isovue-370) 76 % injection 75 mL (3 sources) Start: 07-27-2023 End: 07-27-2023 iopamidol (Isovue-370) 76 % injection 75 mL Start: 07-21-2022 End: 07-21-2022 iopamidol (Isovue-370) 76 % injection 75 mL 1 ml ketorolac tromethamine 30 mg/ml cartridge (2 sources) Nonsteroidal Anti-inflammatory Drug, Cyclooxygenase Inhibitor Start: 06-05-2019 End: 06-05-2019 ketorolac (TORADOL) injection 30 mg Start: 03-08-2019 End: 03-08-2019 ketorolac (TORADOL) injectio n 30 mg loperamide hydrochloride 2 mg oral capsule (11 sources) Opioid Agonist Start: 06-02-2024 End: 06-04-2024 take 2 mg by mouth four times daily as needed for diarrhea 2 mg, Oral, 4 times daily PRN, diarrhea, Starting on Sat06/02/24 at 1926, After each loose stool Start: 05-07-2024 End: 05-10-2024 take 2 mg by mouth four times daily as needed for diarrhea 2 mg, Oral, 4 times daily PRN, diarrhea, Starting on Sat05/07/24 at 2142, After each loose stool Start: 07-27-2023 End: 07-31-2023 loperamide (Imodium) capsule 2 mg Start: 02-08-2023 End: 02-11-2023 loperamide (Imodium) capsule 2 mg Start: 09-10-2022 End: 09-14-2022 take 2 mg by mouth every three hours as needed for diarrhea 2 mg, Oral, Every 3 hours PRN, diarrhea, Starting on Sat09/10/22 at 1559 Start: 06-09-2020 loperamide (IM ODIUM) capsule 2 mg 1 ml LORazepam 2 mg/ml injection (20 sources) Benzodiazepine Start: 06-02-2024 End: 06-04-2024 inject 1 mL by intramuscular injection once as needed 2 mg, IntraMUSCular, Once PRN, seizures, Starting on Sat06/02/24 at 1926, For 1 dose, Please notify flight control manager attending if this has to be utilized for a seizure. For IV doses dilute dose with 1ml NS. Start: 05-07-2024 End: 05-10-2024 inject 1 mL by intramuscular injection once as needed 2 mg, IntraMUSCular, Once PRN, seizures, Starting on Mounika 05/07/24 at 2142, For 1 dose, Please notify flight control manager attending if this has to be utilized for a seizure. For IV doses dilute dose with 1ml NS. Start: 01-20-2024 End: 01-20-2024 2 mg, IntraMUSCular, Once, O n 01/20/24 at 2120, For 1 dose, For IV doses dilute dose with 1ml NS. Start: 11-28-2023 End: 11-28-2023 take 2 mg by mouth once 2 mg, Oral, Once, On Mounika 10/31 12/23 at 0205, For 1 dose Start: 11-28-2023 End: 11-30-2023 LORazepam (Ativan) tablet 1 mg Start: 07-27-2023 End: 07-27-2023 LORazepam (Ativan) injection 2 mg Start: 07-08-2023 End: 07-08-2023 2 mg, IntraVENous, Once, On Sat07/08/23 at 1930, For 1 dose, For IV doses dilute dose with 1ml NS. Start: 05-21-2023 End: 05-23-2023 LORazepam (Ativan) tablet 1 mg Start: 05-20-2023 End: 05-20-2023 LORazepam (Ativan) injection 2 mg Start: 07-21-2022 End: 07-23-2022 LORazepam (Ativan) tablet 1 mg Start: 07-21-2022 End: 07-21-2022 LORazepam (Ativan) injection 2 mg Start: 09-27-2021 LORazepam (ATI VAN) tablet 1 mg Start: 06-07-2021 LORazepam (ATI VAN) tablet 1 mg Start: 06-06-2021 End: 06-06-2021 LORazepam (ATIVAN) injection 1 mg Start: 06-09-2020 LORazepam (ATI VAN) tablet 1 mg Start: 06-09-2020 End: 06-09-2020 LORazepam (ATIVAN) injection 1 mg magnesium hydroxide 80 mg/ml oral suspension (9 sources) Start: 06-02-2024 End: 06-04-2024 take 30 mL by mouth twice daily as needed for constipation 30 mL, Oral, 2 times daily PRN, constipation, Starting on Sat06/02/24 at 1926 Start: 05-07-2024 End: 05-10-2024 take 30 mL by mouth twice daily as needed for constipation 30 mL, Oral, 2 times daily PRN, constipation, Starting on Sat05/07/24 at 2142 Start: 07-27-2023 End: 07-31-2023 magnesium hydroxide (Milk of Magnesia) 400 MG/5ML suspension 30 mL Start: 02-08-2023 End: 02-11-2023 magnesium hydroxide (Milk of Magnesia) 400 MG/5ML suspension 30 mL Start: 06-09-2020 magnesium hydr oxide (MILK OF MAGNESIA) 400 MG/5ML suspension 30 mL 50 ml magnesium sulfate 40 m g/ml injection (1 source) Start: 06-07-2021 End: 06-07-2021 magnesium sulfate 2000 mg in 50 mL IVPB premix melatonin 5 mg oral tablet (20 sources) Start: 04-10-2024 End: 04-12-2024 10 mg, Oral, Nightly, First dose on Sat04/10/24 at 2100, HOLD if sleeping or sedated. OK with Trazodone. Start: 05-21-2023 End: 05-23-2023 take 10 mg by mouth once daily as needed for sleep 10 mg, Oral, Nightly PRN, sleep, Starting on Sat05/21/23 at 0239 Start: 12-10-2022 End: 08-06-2024 take 1 tablet by mouth once daily melatonin 5 MG tablet Take 1 tablet (5 mg) by mouth Nightly. 90 tablet 1 06/23/2024 08/06/2024 Discontinued (Stop taking at discharge) Start: 09-18-2022 End: 12-07-2022 take 1 tablet by mouth once daily melatonin 5 MG tablet Take 1 tablet (5 mg) by mouth Nightly. 90 tablet 0 09/25/2022 12/07/2022 Discontinued (Reorder) Start: 08-21-2022 End: 09-14-2022 take 1 tablet by mouth once daily melatonin 5 MG tablet Take 1 tablet (5 mg) by mouth Nightly. 90 tablet 0 08/21/2022 09/14/2022 Discontinued (Reorder) Start: 09-28-2021 End: 08-01-2022 melatonin 5 MG tablet Take 5 mg by mouth. 0 09/28/2021 08/01/2022 Discontinued (Reorder) methocarbamol 500 mg oral tablet (4 sources) Muscle Relaxant Start: 08-03-2024 End: 08-03-2024 take 1000 mg by mouth once 1,000 mg, Oral, Once, On Sat08/03/24 at 2230, For 1 dose Start: 01-20-2024 End: 01-24-2024 take 1 tablet by mouth every six hours as needed 1,000 mg, Oral, Every 6 hours PRN, muscle spasms, Starting on Sat01/20/24 at 2250 24 hr metoprolol succinate 25 mg extended release oral tablet (2 sources) beta-Adrenergic Ghulam Start: 06-04-2024 End: 06-04-2024 take 25 mg by mouth once 25 mg, Oral, Once, On Sat06/04/24 at 1100, For 1 dose, Do not crush or chew. 1 ml morphine sulfate 4 mg/ml injection (1 source) Opioid Agonist Start: 07-21-2022 End: 07-21-2022 morphine sulfate (PF) injection 4 mg multiple vitamin tablet (2 sources) Start: 09-11-2022 End: 09-14-2022 take 1 tablet by mouth once daily 1 tablet, Oral, Daily, First dose on Sat09/11/22 at 0900 Multiple Vitamins tablet (20 sources) Start: 02-06-2024 End: 08-06-2024 take 1 tablet by mouth once daily Multiple Vitamins tablet Take 1 tablet by mouth daily. 90 tablet 1 02/06/2024 08/06/2024 Discontinued (Stop taking at discharge) Start: 02-06-2024 take 1 tablet by lizz th once daily Multiple Vitamins tablet Take 1 tablet by mouth daily. 90 tablet 1 02/06/2024 Active Start: 04-24-2023 End: 02-06-2024 take 1 tablet by mouth once daily Multiple Vitamins tablet Take 1 tablet by mouth daily. 90 tablet 1 04/24/2023 02/06/2024 Discontinued (Reorder) Start: 04-24-2023 take 1 tablet by lizz th once daily Multiple Vitamins tablet Take 1 tablet by mouth daily. 90 tablet 1 04/24/2023 Active Start: 12-10-2022 End: 04-24-2023 take 1 tablet by mouth once daily Multiple Vitamins tablet Take 1 tablet by mouth daily. 90 tablet 1 12/10/2022 04/24/2023 Discontinued (Reorder) Start: 12-10-2022 take 1 tablet by lizz th once daily Multiple Vitamins tablet Take 1 tablet by mouth daily. 90 tablet 1 12/10/2022 Active Start: 09-18-2022 End: 12-07-2022 take 1 tablet by mouth once daily Multiple Vitamins tablet Take 1 tablet by mouth daily. 90 tablet 0 09/18/2022 12/07/2022 Discontinued (Reorder) Start: 09-18-2022 take 1 tablet by lizz th once daily Multiple Vitamins tablet Take 1 tablet by mouth daily. 90 tablet 0 09/18/2022 Active Start: 08-21-2022 End: 09-14-2022 take 1 tablet by mouth once daily Multiple Vitamins tablet Take 1 tablet by mouth daily. 90 tablet 0 08/21/2022 09/14/2022 Discontinued (Reorder) Start: 08-21-2022 take 1 tablet by lizz th once daily Multiple Vitamins tablet Take 1 tablet by mouth daily. 90 tablet 0 08/21/2022 Active Start: 06-07-2021 End: 08-01-2022 Multiple Vitamins tablet Cesar e 1 tablet by mouth. 0 06/07/2021 08/01/2022 Discontinued (Reorder) Start: 06-07-2021 Multiple Vitam ins tablet Take 1 tablet by mouth. 0 06/07/2021 Active 1 ml naloxone hydrochloride 0.4 mg/ml injection (2 sources) Opioid Antagonist Start: 08-04-2024 End: 08-06-2024 0.4 mg, IntraVENous, Every 5 min PRN, opioid reversal, respiratory depression, Starting on Sat08/04/24 at 0840, +++ For RR naltrexone 380 mg injection (20 sources) Opioid Antagonist Start: 06-04-2024 End: 08-06-2024 naltrexone ER (Vivitrol) injection Indications: Severe alcohol use disorder (HCC) Inject 4 mL (380 mg) into the buttocks every 28 (twenty-eight) days. 06/04/2024 08/06/2024 Discontinued (Stop taking at discharge) Start: 06-04-2024 380 mg, IntraM USCular, Once, On Mounika 06/04/24 at 1200, For 1 dose, Follow Package Insert. Bring vial to room temperature over 1 hour. Reconstitute with 3.4ml of provided diluent. Shake well. Draw up and administer 4mL dose deep IM into gluteal muscle IMMEDIATELY. Do not give IV or subcutaneously. Provide patient with wallet card and medical ID bracelet kit sent up by Pharmacy Start: 06-04-2024 End: 06-04-2024 take 50 mg by mouth once 50 mg, Oral, Once, On Mounika09/23 at 1100, For 1 dose Start: 06-04-2024 End: 06-04-2024 take 50 mg by mouth once 50 mg, Oral, Once, On Mounika 06/04/24 at 1100, For 1 dose Start: 05-10-2024 End: 05-10-2024 take 50 mg by mouth once daily at dinner 50 mg, Oral, Daily With Dinner, First dose on 05/10/24 at 1700 Start: 05-10-2024 End: 05-10-2024 take 50 mg by mouth once daily at dinner 50 mg, Oral, Daily With Dinner, First dose on 05/10/24 at 1700 Start: 04-12-2024 End: 08-08-2024 take 1 tablet by mouth once daily naltrexone (Depade) 50 MG tablet Take 1 tablet (50 mg) by mouth daily. 30 tablet 2 05/10/2024 08/06/2024 Discontinued (Stop taking at discharge) Start: 01-24-2024 380 mg, IntraM USCular, Once, On Sat01/24/24 at 0700, For 1 dose, Follow Package Insert. Bring vial to room temperature over 1 hour. Reconstitute with 3.4ml of provided diluent. Shake well. Draw up and administer 4mL dose deep IM into gluteal muscle IMMEDIATELY. Do not give IV or subcutaneously. Provide patient with wallet card and medical ID bracelet kit sent up by Pharmacy Start: 01-22-2024 End: 01-24-2024 take 50 mg by mouth once daily at dinner 50 mg, Oral, Daily With Dinner, First dose on Sat01/22/24 at 1700 Start: 11-30-2023 End: 11-30-2023 take 50 mg by mouth once daily 50 mg, Oral, Daily, First dose on Sat11/30/23 at 0900 Start: 11-29-2023 End: 04-12-2024 naltrexone ER (Vivitrol) inj ection Indications: Alcohol use disorder, severe, dependence (HCC) Inject 4 mL (380 mg) into the buttocks Once for 1 dose. 4 mL 11/29/2023 04/12/2024 Discontinued (Stop taking at discharge) Start: 02-11-2023 End: 02-11-2023 naltrexone (Depade) tablet 2 5 mg Start: 10-12-2022 End: 12-26-2022 naltrexone ER (Vivitrol) inj ection Inject 4 mL (380 mg) into the shoulder, thigh, or buttocks every 28 (twenty-eight) days for 3 doses. Do not start before October 12, 2022. 4 mL 2 10/12/2022 12/26/2022 Discontinued (Therapy completed) Start: 10-09-2022 End: 12-08-2022 take 1 tablet by mouth once daily naltrexone (Depade) 50 MG tablet Take 1 tablet (50 mg) by mouth Nightly. Until receiving vivitrol injection 30 tablet 1 10/09/2022 12/08/2022 Active Start: 09-14-2022 End: 09-14-2022 naltrexone ER (Vivitrol) inj ection 380 mg Start: 09-13-2022 End: 09-13-2022 naltrexone (Depade) tablet 5 0 mg naproxen 500 mg oral tablet (2 sources) Nonsteroidal Anti-inflammatory Drug Start: 04-06-2021 End: 06-09-2021 take 1 tablet by mouth twice daily at mealtime naproxen (NAPROSYN) 500 MG tablet Take 1 tablet by mouth 2 times daily (with meals) 14 tablet 0 04/06/2021 06/09/2021 Discontinued (Stop Taking at Discharge) nicotine 4 mg oral lozenge (20 sources) Cholinergic Nicotinic Agonist Start: 06-23-2024 End: 08-06-2024 take 4 mg by mouth every two hours as needed 4 mg, Mouth/Throat, Every 2 hour PRN, smoking cessation, Starting on Sat08/04/24 at 0128 Start: 04-10-2024 End: 04-12-2024 2 mg, Mouth/Throat, As neede d, smoking cessation, Starting on Sat04/10/24 at 0938 Start: 02-05-2024 End: 06-04-2024 nicotine polacrilex (Nicotin e Mini) 4 MG lozenge Indications: Psoriasiform seborrheic dermatitis , Elevated liver enzymes Dissolve 1 lozenge (4 mg) in the mouth every 2 hours as needed for smoking cessation. 100 lozenge 3 02/05/2024 Active Start: 01-21-2024 End: 01-24-2024 apply 1 dose transdermal route once daily at bedtime 1 patch, TransDERmal, Administer over 24 Hours, Daily, First dose on Sat01/21/24 at 0900, For 42 days, Apply new patch to nonhairy, clean, dry skin on the upper body or upper outer arm. Rotate patch sites. Notify Pharmacy if patient or provider prefers patch to be removed at bedtime and replaced in the morning. Start: 01-20-2024 End: 01-24-2024 2 mg, Mouth/Throat, Every 2 hour PRN, smoking cessation, nicotine craving, urge to smoke, Starting on Sat01/20/24 at 2256, Instruct patient to suck on lozenge until it dissolves; it should not be bitten, chewed, or swallowed. Maximum 20 lozenges per day. To increase chances of quitting, recommended to use at least 9 lozenges per day in the first 6 weeks of cessation. Start: 01-20-2024 End: 01-24-2024 2 mg, Mouth/Throat, Every 1 hour PRN, smoking cessation, nicotine craving, urge to smoke, Starting on 01/20/24 at 2255, Instruct patient to chew into gum, then place between the cheek and gum to enhance absorption. To increase chances of quitting, recommended to chew and park at least 9 pieces per day in the first 6 weeks of cessation., Indications: Nicotine Dependence Start: 11-29-2023 End: 11-30-2023 4 mg, Mouth/Throat, Every 2 hour PRN, smoking cessation, nicotine craving, urge to smoke, Starting on Sat11/29/23 at 1216, Instruct patient to suck on lozenge until it dissolves; it should not be bitten, chewed, or swallowed. Maximum 20 lozenges per day. To increase chances of quitting, recommended to use at least 9 lozenges per day in the first 6 weeks of cessation. Start: 11-28-2023 End: 11-30-2023 take 2 mg by mouth every two hours as needed 2 mg, Mouth/Throat, Every 2 hour PRN, smoking cessation, Starting on Mounika 11/28/23 at 1119 Start: 07-28-2023 End: 07-31-2023 nicotine (Nicoderm, Step 1) 21 MG/24HR patch 1 patch Start: 07-28-2023 End: 07-31-2023 nicotine polacrilex (Commit) lozenge 2 mg Start: 07-09-2023 End: 07-11-2023 nicotine polacrilex (Commit) lozenge 2 mg Start: 05-21-2023 End: 05-23-2023 nicotine (Nicoderm, Step 1) 21 MG/24HR patch 1 patch Start: 02-08-2023 End: 02-11-2023 nicotine (Nicoderm, Step 1) 21 MG/24HR patch 1 patch Start: 12-10-2022 End: 05-23-2023 nicotine polacrilex (Commit) 2 MG lozenge Dissolve 1 lozenge (2 mg) in the mouth every 2 hours as needed for smoking cessation (nicotine craving, urge to smoke). 100 lozenge 1 04/24/2023 05/23/2023 Discontinued (Stop taking at discharge) Start: 10-23-2022 End: 02-05-2024 apply 1 dose transdermal route once daily nicotine (Nicoderm, Step 2) 14 MG/24HR patch Place 1 patch on the skin daily. Do not start before October 23, 2022. 30 patch 10/23/2022 02/05/2024 Discontinued (Therapy completed) Start: 10-23-2022 apply 1 dose transde rmal route once daily nicotine (Nicoderm, Step 2) 14 MG/24HR patch Place 1 patch on the skin daily. Do not start before October 23, 2022. 30 patch 0 10/23/2022 Active Start: 10-23-2022 apply 1 dose transde rmal route once daily nicotine (Nicoderm, Step 2) 14 MG/24HR patch Place 1 patch on the skin daily. Do not start before October 23, 2022. 30 patch 0 10/23/2022 Active Start: 10-23-2022 apply 1 dose transde rmal route once daily nicotine (Nicoderm, Step 2) 14 MG/24HR patch Place 1 patch on the skin daily. Do not start before October 23, 2022. 30 patch 0 10/23/2022 Active Start: 10-23-2022 apply 1 dose transde rmal route once daily nicotine (Nicoderm, Step 2) 14 MG/24HR patch Place 1 patch on the skin daily. Do not start before October 23, 2022. 30 patch 0 10/23/2022 Active Start: 10-23-2022 apply 1 dose transde rmal route once daily nicotine (Nicoderm, Step 2) 14 MG/24HR patch Place 1 patch on the skin daily. Do not start before October 23, 2022. 30 patch 0 10/23/2022 Active Start: 10-23-2022 apply 1 dose transde rmal route once daily nicotine (Nicoderm, Step 2) 14 MG/24HR patch Place 1 patch on the skin daily. Do not start before October 23, 2022. 30 patch 0 10/23/2022 Active Start: 10-23-2022 apply 1 dose transde rmal route once daily nicotine (Nicoderm, Step 2) 14 MG/24HR patch Place 1 patch on the skin daily. Do not start before October 23, 2022. 30 patch 0 10/23/2022 Active Start: 10-23-2022 apply 1 dose transde rmal route once daily nicotine (Nicoderm, Step 2) 14 MG/24HR patch Place 1 patch on the skin daily. Do not start before October 23, 2022. 30 patch 0 10/23/2022 Active Start: 10-23-2022 apply 1 dose transde rmal route once daily nicotine (Nicoderm, Step 2) 14 MG/24HR patch Place 1 patch on the skin daily. Do not start before October 23, 2022. 30 patch 0 10/23/2022 Active Start: 10-23-2022 apply 1 dose transde rmal route once daily nicotine (Nicoderm, Step 2) 14 MG/24HR patch Place 1 patch on the skin daily. Do not start before October 23, 2022. 30 patch 0 10/23/2022 Active Start: 09-11-2022 End: 09-14-2022 nicotine (Nicoderm, Step 1) 21 MG/24HR patch 1 patch Start: 09-11-2022 End: 12-07-2022 nicotine polacrilex (Commit) 2 MG lozenge Dissolve 1 lozenge (2 mg) in the mouth every 2 hours as needed for smoking cessation (nicotine craving, urge to smoke). 100 lozenge 0 09/14/2022 12/07/2022 Discontinued (Reorder) Start: 09-27-2021 nicotine (JESSY DERM CQ) 21 MG/24HR 1 patch Start: 06-09-2020 apply 1 dose transde rmal route once daily 1 patch, Transdermal, Administer over 24 Hours, DAILY, First dose on Mounika 06/09/20 at 1330 Apply new patch to nonhairy, clean, dry skin on the upper body or upper outer arm. Rotate patch sites. Notify pharmacy if patient or provider prefers patch to be removed at bedtime and replaced in the morning. Hazardous Medication -- Refer to facility policy for handling and disposal. octreotide (SANDOSTATIN) 500 mcg in sodium chloride 0.9 % 100 mL infusion (1 source) Start: 06-06-2021 End: 06-09-2021 octreotide (SANDOSTATIN) 500 mcg in sodium chloride 0.9 % 100 mL infusion omeprazole 20 mg delayed release oral capsule (5 sources) Proton Pump Inhibitor Start: 03-26-2021 End: 06-09-2021 take 1 capsule by mouth once daily before breakfast omeprazole (PRILOSEC) 20 MG delayed release capsule Indications: Elevated LFTs , Lombardo's esophagus without dysplasia Take 1 capsule by mouth every morning (before breakfast) 30 capsule 3 03/26/2021 06/09/2021 Discontinued (Stop Taking at Discharge) Start: 08-26-2020 take 1 capsule by mo [facility] once daily before breakfast omeprazole (PRILOSEC) 20 MG delayed release capsule Indications: Elevated LFTs , Lombardo's esophagus without dysplasia Take 1 capsule by mouth every morning (before breakfast) 30 capsule 3 08/26/2020 Active End: 06-10-2020 take 1 capsule by mouth once daily omeprazole (PRILOSEC) 20 MG delayed release capsule Take 20 mg by mouth daily 0 06/10/2020 Discontinued (Stop Taking at Discharge) ondansetron 4 mg disintegrating oral tablet (20 sources) Serotonin-3 Receptor Antagonist Start: 08-03-2024 End: 08-03-2024 take 4 mg by mouth once 4 mg, Oral, Once, On Sat08/03/24 at 1740, For 1 dose Start: 06-02-2024 End: 06-04-2024 take 1 tablet by mouth every six hours as needed for nausea and vomiting 4 mg, Oral, Every 6 hours PRN, nausea, vomiting, Starting on Sat06/02/24 at 1926 Start: 05-07-2024 End: 05-10-2024 take 1 tablet by mouth every six hours as needed for nausea and vomiting 4 mg, Oral, Every 6 hours PRN, nausea, vomiting, Starting on Mounika 05/07/24 at 2142 Start: 04-09-2024 End: 04-09-2024 4 mg, IntraVENous, Once, On Mounika 04/09/24 at 2030, For 1 dose Start: 01-20-2024 End: 01-20-2024 take 8 mg by mouth once 8 mg, Oral, Once, On Mon at 1745, For 1 dose Start: 07-27-2023 End: 07-31-2023 take 1 tablet by mouth every six hours as needed for nausea and vomiting ondansetron ODT (Zofran-ODT) disintegrating tablet 4 mg Start: 07-08-2023 End: 07-11-2023 take 1 tablet by mouth every eight hours as needed for nausea and vomiting ondansetron ODT (Zofran-ODT) disintegrating tablet 4 mg Start: 02-08-2023 End: 02-11-2023 take 1 tablet by mouth every six hours as needed for nausea and vomiting ondansetron ODT (Zofran-ODT) disintegrating tablet 4 mg Start: 09-10-2022 End: 09-14-2022 take 1 tablet by mouth every eight hours as needed for nausea and vomiting 4 mg, Oral, Every 8 hours PRN, nausea, vomiting, Starting on Sat09/10/22 at 1559 Start: 09-10-2022 End: 09-10-2022 ondansetron (Zofran) injecti on 4 mg Start: 07-21-2022 End: 07-21-2022 ondansetron (Zofran) injecti on 4 mg Start: 09-26-2021 End: 09-26-2021 ondansetron (ZOFRAN) injecti on 4 mg Start: 06-09-2020 End: 06-09-2020 ondansetron (ZOFRAN) injecti on 4 mg ondansetron ODT (Zofran-ODT) disintegrating tablet 4 mg (11 sources) Start: 08-03-2024 End: 08-06-2024 take 1 tablet by mouth every eight hours as needed for nausea and vomiting ondansetron ODT (Zofran-ODT) disintegrating tablet 4 mg Start: 04-10-2024 End: 04-12-2024 take 1 tablet by mouth every eight hours as needed for nausea and vomiting ondansetron ODT (Zofran-ODT) disintegrating tablet 4 mg Start: 01-20-2024 End: 01-24-2024 take 1 tablet by mouth every eight hours as needed for nausea and vomiting ondansetron ODT (Zofran-ODT) disintegrating tablet 4 mg Start: 11-28-2023 End: 11-30-2023 take 1 tablet by mouth every eight hours as needed for nausea and vomiting ondansetron ODT (Zofran-ODT) disintegrating tablet 4 mg Start: 05-21-2023 End: 05-23-2023 take 1 tablet by mouth every eight hours as needed for nausea and vomiting ondansetron ODT (Zofran-ODT) disintegrating tablet 4 mg Start: 07-21-2022 End: 07-23-2022 take 1 tablet by mouth every eight hours as needed for nausea and vomiting ondansetron ODT (Zofran-ODT) disintegrating tablet 4 mg 2 ml orphenadrine citrate 30 mg/ml injection (1 source) Muscle Relaxant Start: 03-08-2019 End: 03-08-2019 orphenadrine (NORFLEX) injection 60 mg oxyCODONE hydrochloride 5 mg oral tablet (16 sources) Opioid Agonist Start: 08-10-2024 End: 08-21-2024 take 1 tablet by mouth every eight hours as needed for pain oxyCODONE (Roxicodone) 5 MG immediate release tablet Indications: Shingles (herpes zoster) polyneuropathy Take 1 tablet (5 mg) by mouth every 8 hours as needed for severe pain (7-10) for up to 7 days. 21 tablet 08/14/2024 08/21/2024 Start: 08-04-2024 End: 08-14-2024 take 1 tablet by mouth every six hours as needed for pain oxyCODONE (Roxicodone) 5 MG immediate release tablet Indications: Shingles (herpes zoster) polyneuropathy Take 1 tablet (5 mg) by mouth every 6 hours as needed for severe pain (7-10) for up to 3 days. 9 tablet 08/06/2024 11:46 AM EDT 08/06/2024 08/14/2024 Discontinued (Reorder) pantoprazole (PROTONIX) 40 mg in sodium chloride (PF) 10 mL injection (1 source) Start: 09-27-2021 End: 09-27-2021 pantoprazole (PROTONIX) 40 mg in sodium chloride (PF) 10 mL injection pantoprazole (PROTONIX) 80 mg in sodium chloride (PF) 20 mL injection (1 source) Start: 09-26-2021 End: 09-26-2021 pantoprazole (PROTONIX) 80 mg in sodium chloride (PF) 20 mL injection PHENobarbital 97.2 mg oral tablet (20 sources) Start: 08-03-2024 End: 08-03-2024 take 97.2 mg by mouth twice daily 97.2 mg, Oral, 2 times daily, First dose on Sat08/03/24 at 2100 Start: 08-03-2024 End: 08-03-2024 take 97.2 mg by mouth twice daily 97.2 mg, Oral, 2 times daily, First dose on Sat08/03/24 at 2100 Start: 06-03-2024 End: 06-04-2024 take 1 tablet by mouth every six hours 64.8 mg, Oral, Every 6 hours, First dose on Sat06/03/24 at 0000, OK to HOLD or DELAY for oversedation Start: 06-02-2024 End: 06-02-2024 take 97.2 mg by mouth once 97.2 mg, Oral, Once, On Sat06/02/24 at 1810, For 1 dose Start: 05-09-2024 End: 05-10-2024 take 1 tablet by mouth every four hours 32.4 mg, Oral, Every 4 hours, First dose (after last modification) on Sat05/09/24 at 1600, OK to HOLD or DELAY for oversedation Start: 05-08-2024 End: 05-09-2024 take 1 tablet by mouth every four hours 64.8 mg, Oral, Every 4 hours, First dose (after last modification) on Sat05/08/24 at 1600, OK to HOLD or DELAY for oversedation Start: 05-08-2024 End: 05-08-2024 take 1 tablet by mouth every four hours 97.2 mg, Oral, Every 4 hours, First dose on Sat05/08/24 at 0400, OK to HOLD or DELAY for oversedation Start: 05-07-2024 End: 05-07-2024 take 97.2 mg by mouth once 97.2 mg, Oral, Once, On Mounika 05/07/24 at 205, For 1 dose, Prior to transfer Start: 04-11-2024 End: 04-12-2024 take 1 tablet by mouth every six hours 64.8 mg, Oral, Every 6 hours, First dose on 04/11/24 at 1000, HOLD if sleeping, sedated, SBP Start: 04-10-2024 End: 04-11-2024 take 1 tablet by mouth every four hours 97.2 mg, Oral, Every 4 hours, First dose on Sat04/10/24 at 0900, HOLD if sleeping, sedated, SBP Start: 04-09-2024 End: 04-09-2024 take 97.2 mg by mouth once 97.2 mg, Oral, Once, On Sat04/09/24 at 2030, For 1 dose Start: 01-23-2024 End: 01-24-2024 take 1 tablet by mouth every four hours 32.4 mg, Oral, Every 4 hours, First dose (after last modification) on Sat01/23/24 at 1900, HOLD for sedation, SBP Start: 01-22-2024 End: 01-23-2024 take 1 tablet by mouth every four hours 64.8 mg, Oral, Every 4 hours, First dose (after last modification) on Sat01/22/24 at 1100, HOLD for sedation, SBP Start: 01-20-2024 End: 01-22-2024 take 1 tablet by mouth every four hours 97.2 mg, Oral, Every 4 hours, First dose (after last modification) on Sat01/21/24 at 1100, HOLD for sedation, SBP Start: 11-27-2023 End: 11-27-2023 take 97.2 mg by mouth once 97.2 mg, Oral, Once, On Sat11/27/23 at 2130, For 1 dose Start: 07-30-2023 End: 07-30-2023 PHENobarbital (Luminal) tabl et 32.4 mg Start: 07-30-2023 End: 07-30-2023 PHENobarbital (Luminal) tabl et 32.4 mg Start: 07-30-2023 End: 07-30-2023 take 1 tablet by mouth every six hours PHENobarbital (Luminal) tablet 64.8 mg Start: 07-30-2023 End: 07-30-2023 take 1 tablet by mouth every six hours PHENobarbital (Luminal) tablet 64.8 mg Start: 07-28-2023 End: 07-30-2023 take 1 tablet by mouth every four hours PHENobarbital (Luminal) tablet 64.8 mg Start: 07-27-2023 End: 07-28-2023 take 1 tablet by mouth every four hours PHENobarbital (Luminal) tablet 97.2 mg Start: 07-08-2023 End: 07-11-2023 take 1 tablet by mouth every four hours PHENobarbital (Luminal) tablet 97.2 mg Start: 02-10-2023 End: 02-11-2023 take 1 tablet by mouth every four hours PHENobarbital (Luminal) tablet 64.8 mg Start: 02-09-2023 End: 02-10-2023 take 1 tablet by mouth every four hours PHENobarbital (Luminal) tablet 97.2 mg Start: 09-13-2022 End: 09-14-2022 take 1 tablet by mouth every six hours PHENobarbital (Luminal) tablet 64.8 mg Start: 09-10-2022 End: 09-12-2022 PHENobarbital (Luminal) tabl et 97.2 mg Start: 09-27-2021 PHENobarbital (LUMINAL) tablet 100 mg Start: 06-10-2021 End: 06-11-2021 PHENobarbital (LUMINAL) tabl et 32.4 mg Start: 06-08-2021 End: 06-10-2021 PHENobarbital (LUMINAL) tabl et 64.8 mg Start: 06-07-2021 End: 06-08-2021 PHENobarbital (LUMINAL) tabl et 97.2 mg Start: 06-06-2021 End: 06-06-2021 PHENobarbital (LUMINAL) tabl et 64.8 mg Start: 06-10-2020 PHENobarbital (LUMINAL) tablet 32.4 mg Start: 06-09-2020 End: 06-10-2020 take 64.8 mg by mouth every four hours 64.8 mg, Oral, EVERY 4 HOURS, First dose on [facility] 06/09/20 at 1300 OK to HOLD if unarousable or overly sedated PHENobarbital (LUMINAL) 190 mg in sodium chloride 0.9 % 100 mL IVPB (1 source) Start: 06-07-2021 End: 06-07-2021 PHENobarbital (LUMINAL) 190 mg in sodium chloride 0.9 % 100 mL IVPB PHENobarbital (Luminal) injection 100 mg (2 sources) Start: 05-21-2023 End: 05-23-2023 take 100 mg intravenously every four hours PHENobarbital (Luminal) injection 100 mg PHENobarbital (Luminal) injection 65 mg (2 sources) Start: 05-21-2023 End: 05-21-2023 take 65 mg intravenously every eight hours PHENobarbital (Luminal) injection 65 mg polyethylene glycol 3350 29254 mg powder for oral solution (10 sources) Osmotic Laxative Start: 04-10-2024 End: 04-12-2024 take 17 g by mouth every twenty-four hours as needed for constipation Start: 01-20-2024 End: 01-24-2024 take 17 g by mouth every twenty-four hours as needed for constipation 17 g, Oral, Daily PRN, constipation, Starting on 01/20/24 at 2247, 1st line for treatment of constipation - give scheduled if no bowel movement in past 24 hours. Start: 11-28-2023 End: 11-30-2023 take 17 g by mouth every twenty-four hours as needed for constipation 17 g, Oral, Daily PRN, constipation, Starting on Mounika 11/28/23 at 0520, 1st line for treatment of constipation - give scheduled if no bowel movement in past 24 hours. Start: 05-21-2023 End: 05-23-2023 take 17 g by mouth every twenty-four hours as needed for constipation polyethylene glycol (PEG) 3350 (Miralax) packet 17 g Start: 07-21-2022 End: 07-23-2022 take 17 g by mouth every twenty-four hours as needed for constipation 17 g, Oral, Daily PRN, constipation, Starting on 07/21/22 at 1829 1st line for treatment of constipation - give scheduled if no bowel movement in past 24 hours. Start: 06-07-2021 17 g, Oral, DA SIDDHARTH PRN, Constipation, Starting on 06/07/21 at 0040 First line therapy for constipation predniSONE 20 mg oral tablet (6 sources) Start: 05-20-2023 End: 05-20-2023 predniSONE (Deltasone) table t 50 mg Start: 06-09-2021 predniSONE (DE LTASONE) 10 MG tablet Take 2 tabs daily for 3 days, then 1 tabs daily for 3 days, then 0.5 tab daily for 3 days 11 tablet 0 06/09/2021 Active Start: 06-08-2021 End: 06-11-2021 predniSONE (DELTASONE) table t 20 mg Start: 06-05-2019 End: 06-10-2019 take 1 tablet by mouth twice daily predniSONE (DELTASONE) 20 MG tablet Take 1 tablet by mouth 2 times daily for 5 days 10 tablet 0 06/05/2019 06/10/2019 Active rosuvastatin calcium 10 mg oral tablet (14 sources) HMG-CoA Reductase Inhibitor Start: 12-01-2021 End: 01-19-2023 take 1 tablet by mouth once daily rosuvastatin (Crestor) 10 MG tablet Take 1 tablet (10 mg) by mouth daily. 90 tablet 0 08/21/2022 09/14/2022 Discontinued (Stop taking at discharge) Start: 09-04-2021 take 1 tablet by lizz th once daily rosuvastatin (CRESTOR) 10 MG tablet Take 1 tablet by mouth nightly 90 tablet 0 09/04/2021 Active Start: 03-27-2021 take 10 mg by mouth once daily 10 mg, Oral, NIGHTLY, First dose on Sat06/07/21 at 0100 Start: 10-17-2020 take 1 tablet by lizz th once daily rosuvastatin (CRESTOR) 10 MG tablet Take 1 tablet by mouth nightly 30 tablet 3 10/17/2020 Active 50 ml sodium chloride 9 mg/m l injection (20 sources) Start: 04-09-2024 End: 04-09-2024 1,000 mL, IntraVENous, at 1, 000 mL/hr, Administer over 1 Hours, Once, On Sat04/09/24 at 2030, For 1 dose Start: 01-20-2024 End: 01-24-2024 5 mL, IntraVENous, As needed , line care, Starting on Sat01/20/24 at 2256 Start: 01-20-2024 End: 01-20-2024 1,000 mL, IntraVENous, at 1, 000 mL/hr, Administer over 1 Hours, Once, On Sat01/20/24 at 1745, For 1 dose Start: 07-27-2023 End: 07-27-2023 sodium chloride 0.9 % bolus 1,000 mL Start: 05-21-2023 End: 05-22-2023 sodium chloride 0.9 % infusi on Start: 05-20-2023 End: 05-20-2023 sodium chloride 0.9 % bolus 1,000 mL Start: 09-27-2021 0.9 % sodium c hloride infusion Start: 09-27-2021 sodium chlorid e flush 0.9 % injection 5-40 mL Start: 09-26-2021 End: 09-26-2021 0.9 % sodium chloride bolus Start: 06-08-2021 sodium chlorid e flush 0.9 % injection 5-40 mL Start: 06-08-2021 0.9 % sodium c hloride infusion Start: 06-07-2021 End: 06-07-2021 0.9 % sodium chloride bolus Start: 06-07-2021 take 25 mL intraveno usly every hour as needed 25 mL, IntraVENous, at 100 mL/hr, PRN, If patient receiving piggyback infusions without ordered maintenance IV fluids or with frequent/long duration piggyback infusions, Starting on Sat06/07/21 at 0040 Administer at the same rate as the piggyback being infused. Start: 06-07-2021 take 5-40 mL intrave nously once as needed 5-40 mL, IntraVENous, PRN, Line Care, After every IV line use, Starting on Sat06/07/21 at 0040 For Line Patency: Peripheral IV = 5 mL; Midline or Central Line = 10 mL/lumen. If following IV push medication, administer flush at same rate as the IV push. Flush volume is determined by type of infusion therapy being given. For non-viscous solutions use: Peripheral IV = 5 mL Midline or Central Line = 10 mL/lumen For viscous solutions (i.e. blood components, parenteral nutrition, contrast media, or after obtaining blood sample) use: Peripheral IV = 10 mL Midline or Central Line = 20 mL/lumen Start: 06-06-2021 sodium chlorid e (PF) 0.9 % injection 10 mL Start: 06-09-2020 0.9 % sodium c hloride infusion Start: 06-09-2020 10 mL, Intrave nous, EVERY 12 HOURS SCHEDULED (2 times per day), First dose on Mounika 06/09/20 at 2100 Start: 06-09-2020 take 10 mL intraveno us route once as needed 10 mL, Intravenous, PRN, Line Care, After every IV line use, Starting Mounika 06/09/20 at 1230 Start: 06-09-2020 End: 06-09-2020 0.9 % sodium chloride bolus sodium chloride 0.9 % 1,000 mL with folic acid 1 mg, adult multi-vitamin with vitamin k 10 mL, thiamine 100 mg (1 source) Start: 06-09-2020 End: 06-09-2020 Intravenous, at 100 mL/hr, ONCE, Mounika 06/09/20 at 1330, For 1 dose therapeutic multivitamin-minerals (Theragran-M) tablet (8 sources) Start: 05-08-2024 End: 05-10-2024 take 1 tablet by mouth once daily 1 tablet, Oral, Daily, First dose on Sat05/08/24 at 0900 Start: 04-10-2024 End: 04-12-2024 take 1 tablet by mouth once daily 1 tablet, Oral, Daily, First dose on Sat04/10/24 at 0900 Start: 07-09-2023 End: 07-10-2023 take 1 tablet by mouth once daily 1 tablet, Oral, Daily, First dose on Sat07/09/23 at 0900 Start: 02-08-2023 End: 02-11-2023 therapeutic multivitamin-min erals (Theragran-M) tablet thiamine 100 mg oral tablet (20 sources) Start: 05-08-2024 End: 05-10-2024 take 100 mg by mouth every six hours 100 mg, Oral, Every 6 hours, First dose (after last modification) on Sat05/08/24 at 1500 Start: 12-10-2022 End: 08-06-2024 take 100 mg by mouth once daily 100 mg, Oral, Daily, F irst dose on Sat08/03/24 at 1910 Start: 09-10-2022 End: 12-07-2022 take 1 tablet by mouth once daily Thiamine Mononitrate (Vitamin B1) 100 MG tablet Take 1 tablet (100 mg) by mouth daily. 90 tablet 0 09/25/2022 12/07/2022 Discontinued (Reorder) Start: 07-21-2022 End: 07-23-2022 take 100 mg by mouth once daily 100 mg, Oral, Daily, F irst dose on Sat07/21/22 at 1830 Start: 09-26-2021 End: 09-27-2021 thiamine tablet 100 mg Start: 06-07-2021 take 100 mg by mouth three times daily 100 mg, Oral, 3 times daily, First dose on Sat06/07/21 at 0900 Start: 06-06-2021 End: 06-07-2021 thiamine (B-1) injection 100 mg Start: 06-09-2020 100 mg, Intrav enous, DAILY, First dose on Sat06/09/20 at 1330 traZODone hydrochloride 50 mg oral tablet (18 sources) Serotonin Reuptake Inhibitor Start: 08-03-2024 End: 08-06-2024 take 50 mg by mouth once daily as needed for sleep 50 mg, Oral, Nightly PRN, sleep, Starting on Sat08/03/24 at 1903 Start: 06-02-2024 End: 06-04-2024 take 100 mg by mouth once daily as needed for sleep 100 mg, Oral, Nightly PRN, sleep, Starting on Sat06/02/24 at 1927 Start: 05-07-2024 End: 05-10-2024 take 100 mg by mouth once daily as needed for sleep 100 mg, Oral, Nightly PRN, sleep, Starting on Sat05/07/24 at 2142 Start: 04-10-2024 End: 04-12-2024 take 50 mg by mouth once daily as needed for sleep 50 mg, Oral, Nightly PRN, sleep, Starting on Sat04/10/24 at 0826, HOLD if sleeping or sedated. OK with melatonin. Start: 01-20-2024 End: 01-24-2024 50 mg, Oral, Nightly PRN, sl eep, Starting on Sat01/20/24 at 2251, 3rd line agent if Melatonin (1st line) and Doxepin (2nd line) fail. Start: 07-27-2023 End: 07-31-2023 traZODone (Desyrel) tablet 1 00 mg Start: 07-08-2023 End: 07-11-2023 traZODone (Desyrel) tablet 5 0 mg Start: 02-08-2023 End: 02-09-2023 traZODone (Desyrel) tablet 1 00 mg Start: 09-10-2022 End: 09-14-2022 take 50 mg by mouth once daily as needed for sleep 50 mg, Oral, Nightly PRN, sleep, Starting on 09/10/22 at 1559 triamcinolone acetonide 0.0005 mg/mg topical ointment (2 sources) Corticosteroid Start: 09-12-2018 End: 03-08-2019 triamcinolone (KENALOG) 0.05 % OINT ointment Apply topically 2 times daily 430 g 1 09/12/2018 03/08/2019 Discontinued (LIST CLEANUP) varenicline 0.5 mg oral tablet (5 sources) Partial Cholinergic Nicotinic Agonist Start: 01-12-2019 End: 08-19-2019 take 1 tablet by mouth once, then take 2 tablets by mouth varenicline (CHANTIX STARTING MONTH ) 0.5 MG X 11 & 1 MG X 42 tablet Indications: Tobacco abuse Take by mouth. 1 box 0 01/12/2019 08/19/2019 Discontinued Problems Active Problems Problem Classification Problem Date Documented Date Episodic/Chronic Alcohol-related disorders (20 sources) Alcohol withdrawal syndrome; Translations: [Alcohol dependence] Onset: 08-31-2019 Resolved: 08-04-2024 08-31-2019 Chronic Allergic reactions (1 source) Eczema; Translations: [Eczema, unspecified type] Episodic Anxiety disorders (20 sources) Anxiety; Translations: [Anxiety disorder, unspecified] Onset: 12-01-2014 12-01-2014 Chronic Chronic obstructive pulmonary disease and bronchiectasis (1 source) Pulmonary emphysema; Translations: [Emphysema, unspecified] 02-28-2024 Chronic Diabetes mellitus without complication (4 sources) Hyperglycemia; Translations: [Hyperglycemia, unspecified] Episodic Disorders of lipid metabolism (1 source) Mixed hyperlipidemia; Translations: [Mixed hyperlipidemia] Chronic Disorders of teeth and jaw (4 sources) Toothache; Translations: [Other specified disorders of teeth and supporting structures] 02-17-2023 Episodic Esophageal disorders (20 sources) Lombardo's esophagus; 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] Onset: 08-26-2020 08-26-2020 Chronic Hyperplasia of prostate (20 sources) Benign prostatic hyperplasia; Translations: [Benign prostatic hyperplasia without lower urinary tract symptoms] Onset: 02-13-2018 02-09-2023 Chronic Miscellaneous mental health disorders (20 sources) Male erectile disorder; Translations: [Psychosexual dysfunction with inhibited sexual excitement] Onset: 02-13-2018 Chronic Mood disorders (20 sources) Depressive disorder; Translations: [Major depressive disorder, single episode, unspecified] Onset: 12-01-2014 12-01-2014 Chronic Other aftercare (2 sources) Patient encounter status; Translations: [Encounter for therapeutic drug level monitoring] 10-09-2022 Episodic Other inflammatory condition of skin (3 sources) Psoriasis; Translations: [Psoriasis, unspecified] Chronic Other inflammatory condition of skin (11 sources) Seborrheic psoriasis; Translations: [Other psoriasis] 09-26-2022 Chronic Other inflammatory condition of skin (2 sources) Other psoriasis; Translations: [Other psoriasis] Onset: 08-14-2024 Chronic Other injuries and conditions due to external causes (2 sources) Closed injury of head; Translations: [Unspecified injury of head, initial encounter] 05-25-2024 Episodic Other injuries and conditions due to external causes (2 sources) Subcutaneous hematoma; Translations: [Other injury of unspecified body region, initial encounter] 07-01-2024 Episodic Other injuries and conditions due to external causes (2 sources) Other injury of unspecified body region, initial encounter; Translations: [Other injury of unspecified body region, initial encounter] Onset: 07-01-2024 Episodic Other liver diseases (20 sources) Steatosis of liver; Translations: [Fatty (change of) liver, not elsewhere classified] Onset: 06-10-2020 Chronic Other liver diseases (2 sources) Abnormal levels of other serum enzymes; Translations: [Abnormal levels of other serum enzymes] Onset: 05-08-2024 Episodic Other lower respiratory disease (1 source) Cough; Translations: [Cough] Episodic Other lower respiratory disease (1 source) Chronic cough; Translations: [Cough] Episodic Other lower respiratory disease (1 source) Dyspnea; Translations: [Shortness of breath] Episodic Other lower respiratory disease (12 sources) Nodule of lung; Translations: [Solitary pulmonary nodule] 02-13-2024 Episodic Other nervous system disorders (3 sources) Chronic pain; Translations: [Other chronic pain] Chronic Other nervous system disorders (2 sources) Neuropathy; Translations: [Polyneuropathy, unspecified] 08-14-2024 Chronic Other nervous system disorders (2 sources) Polyneuropathy, unspecified; Translations: [Polyneuropathy, unspecified] Onset: 08-14-2024 Chronic Other non-traumatic joint disorders (6 sources) Shoulder pain; Translations: [Pain in left shoulder] Episodic Other non-traumatic joint disorders (13 sources) Chronic pain of left upper limb; Translations: [Pain in left shoulder] Episodic Other skin disorders (2 sources) Localized swelling, mass and lump, neck; Translations: [Localized swelling, mass and lump, neck] Episodic Other upper respiratory infections (1 source) Acute pharyngitis; Translations: [Acute pharyngitis, unspecified etiology] Episodic Spondylosis; intervertebral disc disorders; other back problems (12 sources) Chronic low back pain; Translations: [Sciatica] Episodic Sprains and strains (2 sources) Low back strain; Translations: [Strain of muscle, fascia and tendon of lower back, initial encounter] Episodic Substance-related disorders (20 sources) Cigarette smoker ; Translations: [Nicotine dependence, cigarettes, uncomplicated] Onset: 06-10-2020 06-10-2020 Chronic Substance-related disorders (2 sources) Cigarette smoker ; Translations: [Cigarette smoker] Onset: 06-10-2020 06-10-2020 Episodic Superficial injury; contusion (5 sources) Contusion of left middle finger; Translations: [Contusion of left middle finger without damage to nail, initial encounter] Onset: 07-01-2024 03-19-2023 Episodic Unclassified (1 source) Alcohol use, unspecified with withdrawal, uncomplicated (HCC); Translations: [Alcohol use, unspecified with withdrawal, uncomplicated (HCC)] Onset: 08-04-2024 Unclassified (1 source) Esophagitis, unspecified without bleeding; Translations: [Esophagitis, unspecified without bleeding] Onset: 06-16-2024 Unclassified (1 source) Low back pain, unspecified; Translations: [Low back pain, unspecified] Onset: 06-16-2024 Unclassified (1 source) Alcohol use, unspecified with withdrawal, unspecified (HCC); Translations: [Alcohol use, unspecified with withdrawal, unspecified (HCC)] Onset: 05-08-2024 Unclassified (1 source) Alcohol use, unspecified, uncomplicated; Translations: [Alcohol use, unspecified, uncomplicated] Onset: 05-07-2024 Unclassified (1 source) Alcohol use, unspecified with withdrawal with perceptual disturbance (HCC); Translations: [Alcohol use, unspecified with withdrawal with perceptual disturbance (HCC)] Onset: 11-28-2023 Viral infection (20 sources) Herpes zoster; Translations: [Zoster without complications] Onset: 08-03-2024 08-03-2024 Episodic Past or Other Problems Problem Classification Problem Date Documented Da te Episodic/Chronic Alcohol-related disorders (20 sources) Alcohol intoxication; Translations: [Alcohol use, unspecified with intoxication, uncomplicated] Onset: 10-01-2019 Resolved: 05-08-2024 10-01-2019 Episodic Cardiac dysrhythmias (20 sources) Tachycardia, unspecified; Translations: [Tachycardia] Onset: 08-16-2017 02-09-2023 Episodic Diabetes mellitus with complications (20 sources) Secondary diabetes mellitus; 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] Onset: 09-25-2022 Resolved: 09-26-2022 09-25-2022 Chronic Esophageal disorders (20 sources) Esophagitis; Translations: [Esophagitis] Onset: 09-27-2021 Episodic Fluid and electrolyte disorders (20 sources) Hyponatremia; Translations: [Hypo-osmolality and hyponatremia] Onset: 06-07-2021 Episodic Gastrointestinal hemorrhage (20 sources) Hematemesis; Translations: [Hematemesis] Onset: 06-09-2020 06-09-2020 Episodic Genitourinary symptoms and ill-defined conditions (4 sources) Increased frequency of urination; Translations: [Frequency of micturition] Onset: 05-20-2024 05-20-2024 Episodic Mood disorders (20 sources) Mood disorders Onset: 09-10-2022 Resolved: 08-04-2024 09-10-2022 Other connective tissue disease (20 sources) Muscle weakness of limb; Translations: [Other symptoms and signs involving the musculoskeletal system] Onset: 02-13-2018 02-09-2023 Episodic Other gastrointestinal disorders (20 sources) Pneumatosis coli; Translations: [Other specified diseases of intestine] Onset: 06-08-2021 Episodic Other injuries and conditions due to external causes (2 sources) Unspecified injury of head, initial encounter; Translations: [Unspecified injury of head, initial encounter] Onset: 05-25-2024 Episodic Other liver diseases (20 sources) Elevated liver enzymes level; Translations: [Abnormal levels of other serum enzymes] Onset: 06-10-2020 06-10-2020 Episodic Other liver diseases (20 sources) Enzyme level - finding; Translations: [Transaminitis] Onset: 06-07-2021 Episodic Other lower respiratory disease (2 sources) Solitary pulmonary nodule; Translations: [Solitary pulmonary nodule] Onset: 05-20-2024 Episodic Other non-traumatic joint disorders (1 source) Bilateral chronic pain of upper limbs; Translations: [Pain in right shoulder] Episodic Other screening for suspected conditions (not mental disorders or infectious disease) (20 sources) Increased lactic acid level; Translations: [Patient encounter status] Onset: 09-28-2021 Episodic Pleurisy; pneumothorax; pulmonary collapse (20 sources) Atelectasis; Translations: [Atelectasis] Onset: 06-07-2021 Episodic Residual codes; unclassified (20 sources) Insomnia; Translations: [Insomnia, unspecified] Onset: 12-01-2014 12-01-2014 Episodic Residual codes; unclassified (20 sources) Alcoholism; Translations: [Alcohol use disorder] Onset: 09-10-2022 Resolved: 02-09-2023 09-10-2022 Episodic Residual codes; unclassified (14 sources) Other specified conditions influencing health status; Translations: [Alcohol use disorder] Onset: 09-10-2022 Resolved: 02-09-2023 02-09-2023 Episodic Unclassified (3 sources) Patient encounter status 02-05-2024 Unclassified (1 source) Elevated LFTs 05-20-2024 Unclassified (1 source) ED (erectile dysfunction) of non-organic origin 05-20-2024 Unclassified (1 source) Alcohol use, unspecified with withdrawal, uncomplicated (HCC); Translations: [Alcohol use, unspecified with withdrawal, uncomplicated (HCC)] Onset: 08-03-2024 Unclassified (1 source) Esophagitis, unspecified without bleeding; Translations: [Esophagitis, unspecified without bleeding] Onset: 06-16-2024 Unclassified (1 source) Low back pain, unspecified; Translations: [Low back pain, unspecified] Onset: 06-16-2024 Unclassified (1 source) Alcohol use, unspecified with withdrawal, unspecified (HCC); Translations: [Alcohol use, unspecified with withdrawal, unspecified (HCC)] Onset: 05-07-2024 Unclassified (1 source) Alcohol use, unspecified, uncomplicated; Translations: [Alcohol use, unspecified, uncomplicated] Onset: 05-07-2024 Unclassified (1 source) Alcohol use, unspecified with withdrawal with perceptual disturbance (HCC); Translations: [Alcohol use, unspecified with withdrawal with perceptual disturbance (HCC)] Onset: 11-27-2023 Results Test Name Value Interpretation Reference Range Facility [id number] Therapy completed [facility] 36on 08-14-2024 36 [facility] Progress Noteon 08-14-2024 Progress Note [facility] Progress Noteon 08-13-2024 Progress Note Missed Session Unexcused Pt did not call or show for Scheduled Assessment on this date. [facility] 36on 08-10-2024 36 [facility] 36 [facility] 36 [facility] 36 [facility] ED Nursing Noteon 08-10-2024 ED Nursing Note Recently diagnosed w ith shingles and is here for increasing pain to area on abdomen. Normal [facility] ED Provider Noteon ED Provider Note [facility] 36on 08-07-2024 36 [facility] 30on 08-06-2024 30 [facility] [id number] 08-06-2024 [id number] Social work consult placed for patient. None of the 5 areas of S NAHOMY noted at current time. Social work consult cleared [facility] [id number] [facility] COMPREHENSIVE METABOLIC PANE Arnulfo 08-06-2024 Albumin [Mass/Vol] 3.3 g/dL Low 3.5-5.0 [facility] Comment on above: Performed By: #### L [id number] ####Underwriting Internship: CECI DURPEE ([id number])[facility] ([address] ALP [Catalytic activity/Vol] 96 U/L Normal 40-150 [facility] Comment on above: Performed By: #### L [id number] ####Underwriting Internship: CECI DUPREE ([id number])[facility] ([facility])[address] [place] [address] ALT [Catalytic activity/Vol] 28 U/L Normal <40 [facility] Comment on above: Performed By: #### L [id number] ####Underwriting Internship: CECI DUPREE ([id number])[facility] ([facility])[address] [place] [address] Anion gap [Moles/Vol] 7 mmol/L Normal 3-13 [facility] Comment on above: Performed By: #### L AB17 ####Underwriting Internship: CECI DUPREE ([id number])[facility] ([facility])[address] [place] [address] AST [Catalytic activity/Vol] 38 U/L High <34 [facility] Comment on above: Performed By: #### L AB17 ####Underwriting Internship: CECI DUPREE ([id number])[facility] ([facility])[address] [place] [address] Bilirubin [Mass/Vol] 0.5 mg/dL Normal <1.2 [facility] Comment on above: Performed By: #### L AB17 ####Underwriting Internship: CECI DUPREE ([id number])[facility] ([facility])[address] [place] [address] Calcium [Mass/Vol] 8.8 mg/dL Normal 8.4-10.2 [facility] Comment on above: Performed By: #### L AB17 ####Underwriting Internship: CECI DUPREE ([id number])[facility] ([facility])[address] [place] [address] [place] Chloride [Moles/Vol] 100 mmol/L Normal 98-107 [facility] Comment on above: Performed By: #### L AB17 ####Underwriting Internship: CECI DUPREE ([id number])[facility] ([facility])[address] [place] [address] CO2 [Moles/Vol] 31 mmol/L High 22-29 [facility] Comment on above: Performed By: #### L AB17 ####Underwriting Internship: CECI DUPREE ([id number])[facility])[address] [place] [address] Creatinine [Mass/Vol] 0.75 mg/dL Normal 0.72-1.25 [facility] Comment on above: Performed By: #### L AB17 ####Underwriting Internship: CECI DUPREE ([id number])[facility] ([facility])[address] [place] [address] GLOMERULAR FILTRATION RATE ML/MIN/1.73 SQ M.PREDICTED >90.0 Normal >60.0 [facility] Comment on above: Result Comment: Calc ulation based on the Chronic Kidney Disease Epidemiology Collaboration (CKD-EPI) equation refit without adjustment for race Performed By: #### L AB17 ####Underwriting Internship: CECI DUPREE ([id number])[facility] ([facility])[address] [place] [address] [place] Glucose [Mass/Vol] 111 mg/dL High 74-100 [facility] Comment on above: Performed By: #### L AB17 ####Underwriting Internship: CECI DUPREE ([id number])[facility] ([facility])[address] [place] [address] [place] Potassium [Moles/Vol] 4.1 mmol/L Normal 3.5-5.1 [facility] Comment on above: Result Comment: [facility] potassium values may be up to 0.5 mmol/L lower than serum values. Performed By: #### L AB17 ####Underwriting Internship: CECI DUPREE ([id number])[facility] ([facility])[address] [place] [address] [place] Protein [Mass/Vol] 6.5 g/dL Normal 6.4-8.3 [facility] Comment on above: Performed By: #### L AB17 ####Underwriting Internship: CECI DUPREE ([id number])[facility] ([facility])[address] [place] [address] Sodium [Moles/Vol] 138 mmol/L Normal 136-145 [facility] Comment on above: Performed By: #### L AB17 ####Underwriting Internship: CECI DUPREE ([id number])[facility] ([facility])[address] [place] [address] Urea nitrogen [Mass/Vol] 5 mg/dL Low 9-23 [facility] Comment on above: Performed By: #### L AB17 ####Underwriting Internship: CECI DUPREE ([id number])[facility] ([facility])[address] [place] [address] Comprehensive metabolic 1998 panelon 08-06-2024 Albumin [Mass/Vol] 3.3 g/dL Low 3.5 - 5.0 g/dL [facility] ALP [Catalytic activity/Vol] 96 U/L 40 - 150 U/L [facility] ALT [Catalytic activity/Vol] 28 U/L NINF - 40 U/L [facility] Anion gap [Moles/Vol] 7 mmol/L 3 - 13 mmol/L [facility] AST [Catalytic activity/Vol] 38 U/L High NINF - 34 U/L [facility] Bilirubin [Mass/Vol] 0.5 [facility]dL [facility] Calcium [Mass/Vol] 8.8 mg/dL 8.4 - 10. 2 mg/dL [facility] Chloride [Moles/Vol] 100 mmol/L 98 - 10 7 mmol/L [facility] CO2 [Moles/Vol] 31 mmol/L High 22 - 29 mmol/L [facility] Creatinine [Mass/Vol] 0.75 mg/dL 0.72 - 1.25 mg/dL [facility] GFR/1.73 sq M.predicted (S/P/Bld) [Vol rate/Area] - PINF [facility] Comment on above: Calculation based on the Chronic Kidney Disease Epidemiology Collaboration (CKD-EPI) equation refit without adjustment for race Glucose [Mass/Vol] 111 mg/dL High 74 - 100 mg/dL [facility] Interpretation and review of laboratory results Abnormal [facility] Potassium [Moles/Vol] 4.1 mmol/L 3.5 - 5.1 mmol/L [facility] Comment on above: Plasma potassium juan ues may be up to 0.5 mmol/L lower than serum values. Protein [Mass/Vol] 6.5 g/dL 6.4 - 8.3 g/dL [facility] Sodium [Moles/Vol] 138 mmol/L 136 - 145 mmol/L [facility] Urea nitrogen [Mass/Vol] 5 mg/dL Low 9 - 23 mg/dL [facility] Nursing Noteon 08-06-2024 Nursing Note Normal [facility] Nursing Note 2 attempts done for blood draw. Unable to retrieve blood. 2nd nurse to attempt. Normal [facility] Nursing Note Patient is up and [facility], seen in group room. Pt is cooperative and med compliant. Pt denies SI/HI/AVH. Pt encouraged to notify staff for any questions and concerns. Normal [facility] Progress Noteon 08-06-2024 Progress Note Normal [facility] 30on 08-05-2024 30 Normal [facility] 94on 08-05-2024 94 Normal [facility] Laboratory - Chemistry and C hemistry - challengeOrdered By: Deven Stokes on 08-05-2024 Transferrin.carbohydrat e deficient/Total transferrin [Mass fraction] 7.5 % High NINF - 1.4 % [facility] Work Phone: Comment on above: Normal:0-1.3% Inconclusive: 1.4-1.6% Elevated: greater than or equal to 1.7% Performed via Capillary Electrophoresis Nursing Noteon 08-05-2024 Nursing Note Normal [facility] Nursing Note Normal [facility] Nursing Note Normal [facility] Progress Noteon 08-05-2024 Progress Note Normal [facility] Progress Note Normal [facility] Progress Note Nutrition rescreen completed. Patient assigned a level 1. Normal [facility] Transferrin.carbohydrate def icient/Total transferrin [Mass fraction]Ordered By: Deven Stokes on 08-05-2024 Interpretation and review of laboratory results Abnormal [facility] Work Phone: [facility] [employer] Work Phone: 30on 08-04-2024 30 Care plan reviewed [facility] [id number] 08-04-2024 [id number] Patient scheduled fo r [facility] intake assessment on 08/13/2024 at 1:30 PM. All information included in patient's discharge paperwork. [facility] [id number] Patient reports plan s to engage in [place] [facility]. Declining residential as an option at current time. ELDER COUNSELOR will assist with scheduling patient intake appointment. [facility] [id number] [facility] CARBOHYDRATE DEFICIENT TRANS FERRINon 08-04-2024 CARBOHYDRATE DEFICIENT TRANSFERRIN 7.5 % High <1.4 [facility] Comment on above: Result Comment: Norm al:0-1.3%Inconclusive: 1.4-1.6%Elevated: greater than or equal to 1.7%Performed via Capillary Electrophoresis Performed By: #### L [id number] ####Underwriting Internship: CECI DUPREE ([id number])[facility] ([facility] Consulton 08-04-2024 Consult [facility] ECG 12-LEADon 08-04-2024 ECG 12-LEAD IMPRESSION: Sinus rhythm Probable anterior infarct, age indeterminate Electronically Signed On 08-04-2024 02:23:55 EDT by Anaya Wallace [facility] ED Nursing Noteon 08-04-2024 ED Nursing Note Transport here for pt. [facility] No Panel InformationOrdered By: Anaya Wallace on 08-04-2024 P [place] 35 degrees [facility] Work Phone: [place] Interval 154 ms [facility] Work Phone: QRS [place] 80 degrees [facility] Work Phone: QRSD Interval 86 ms [facility] Work Phone: QT Interval 364 ms [facility] Work Phone: QTC Interval 461 ms [facility] Work Phone: T Wave [place] 47 degrees [facility] Work Phone: [facility] Work Phone: No Panel Informationon 08-04 Sinus rhythm Probable anterior infarct, age indeterminate Electronically Signed On 08-04-2024 02:23:55 EDT by Anaya Wallace CV Anaya Wong D O - 08/04/2024 IMPRESSION: Sinus rhythm Probable anterior infarct, age indeterminate Electronically Signed On 08-04-2024 02:23:55 EDT by Anaya Wallace [facility] Nursing Noteon 08-04-2024 Nursing Note Patient is up and [facility], seen in group room socializing. Pt is cooperative and med compliant. Pt has shingles on right flank and back. Pt denies SI/HI/AVH. Pt encouraged to notify staff for any questions and concerns. Normal [facility] Nursing Note Administered PRN Oxy codone for shingles pain. Will monitor effectiveness. Normal [facility] Nursing Note Normal [facility] Nursing Note Normal [facility] Vital signsOrdered By: Godwin Wallace on 08-04-2024 Heart rate 96 /min bpm [facility] Phone: CBC W Auto Differential pane l (Bld)Ordered By: Aurora Garcia on 08-03-2024 Basophils (Bld) [#/Vol] 0 10*3/uL 0.0 - 0.2 10*3/uL [facility] Basophils/100 WBC (Bld) 0.6 % 0.0 - 2.0 % [facility] Eosinophils (Bld) [#/Vol] 0.1 10*3/uL 0.0 - 0.5 10*3/uL [facility] Eosinophils/100 WBC (Bld) 1.2 % 0.0 - 6.0 % [facility] Erythrocyte distribution width (RBC) [Ratio] 13.2 % 11.5 - 15.0 % [facility] Hematocrit (Bld) [Volume fraction] 48.4 % 40.0 - 52.0 % [facility] Hemoglobin (Bld) [Mass/Vol] 17.1 g/dL 13.0 - 18.0 g/dL [facility] Immature granulocytes (Bld) [#/Vol] 0 10*3/uL NINF - 0.1 10*3/uL [facility] Immature granulocytes/100 WBC (Bld) 0.4 % 0.0 - 2.0 % [facility] Interpretation and review of laboratory results Abnormal [facility] Lymphocytes (Bld) [#/Vol] 1.7 10*3/uL 1.0 - 4.3 10*3/uL [facility] Lymphocytes/100 WBC (Bld) 33.3 % 15.0 - 45.0 % [facility] MCH (RBC) [Entitic mass] 33.9 pg 26.0 - 34.0 pg [facility] MCHC (RBC) [Mass/Vol] 35.3 % 30.5 - 36.0 % [facility] MCV (RBC) [Entitic vol] 95.8 fL 77.0 - 99.0 fL [facility] Monocytes (Bld) [#/Vol] 0.6 10*3/uL 0.0 - 0.9 10*3/uL [facility] Monocytes/100 WBC (Bld) 12.8 % 5.0 - 13.0 % [facility] Neutrophils (Bld) [#/Vol] 2.6 10*3/uL 1.8 - 7.5 10*3/uL [facility] Neutrophils/100 WBC (Bld) 51.7 % 38.0 - 82.0 % [facility] Nucleated RBC/100 WBC (Bld) [Ratio] 0 % [facility] Platelet mean volume (Bld) [Entitic vol] 8.8 fL Low 9.0 - 12.7 fL [facility] Platelets (Bld) [#/Vol] 137 10*3/uL Low 140 - 440 10*3/uL [facility] RBC (Bld) [#/Vol] 5.05 10*6/uL 4.40 - 5.90 10*6/uL [facility] WBC (Bld) [#/Vol] 5 10*3/uL 3.6 - 10.7 10*3/uL [facility] CBC WITH AUTO DIFFERENTIALon 08-03-2024 Basophils (Bld) [#/Vol] 0.0 10*3/uL Normal 0.0-0.2 [facility] Comment on above: Performed By: #### L [id number] ####Underwriting Internship: REINIER ZHU ([id number])[facility] ([facility]HL[facility])[address] Basophils/100 WBC (Bld) 0.6 % Normal 0.0-2.0 [facility] Comment on above: Performed By: #### L [id number] ####Underwriting Internship: REINIER ZHU ([id number])[facility] (SBHLAB)[address] Eosinophils (Bld) [#/Vol] 0.1 10*3/uL Normal 0.0-0.5 [facility] Comment on above: Performed By: #### L [id number] ####Underwriting Internship: REINIER ZHU ([id number])[facility] [place] ([facility])[address] Eosinophils/100 WBC (Bld) 1.2 % Normal 0.0-6.0 [facility] Comment on above: Performed By: #### L [id number] ####Underwriting Internship: REINIER ZHU ([id number])[facility] [place] ([facility])[address] [place] [address] Erythrocyte distribution width (RBC) [Ratio] 13.2 % Normal 11.5-15.0 [facility] Comment on above: Performed By: #### L [id number] ####Underwriting Internship: REINIER ZHU ([id number])[facility] [place] ([facility])[address] [place] [address] Hematocrit (Bld) [Volume fraction] 48.4 % Normal 40.0-52.0 [facility] Comment on above: Performed By: #### L [id number] ####Underwriting Internship: REINIER ZHU ([id number])[facility] [place] ([facility])[address] [place] [address] Hemoglobin (Bld) [Mass/Vol] 17.1 g/dL Normal 13.0-18.0 [facility] Comment on above: Performed By: #### L [id number] ####Underwriting Internship: REINIER ZHU ([id number])[facility] [place] [address] IMMATURE GRANS % 0.4 % Normal 0.0-2.0 [facility] Comment on above: Performed By: #### L [id number] ####Underwriting Internship: REINIER ZHU ([id number])[facility] [place] [address] IMMATURE GRANS ABSOLUTE 0.0 10*3/uL Normal <0.1 [facility] Comment on above: Performed By: #### L [id number] ####Underwriting Internship: REINIER ZHU ([id number])[facility] ([facility])[address] [place] [address] Lymphocytes (Bld) [#/Vol] 1.7 10*3/uL Normal 1.0-4.3 [facility] Comment on above: Performed By: #### L [id number] ####Underwriting Internship: REINIER ZHU ([id number])[facility] ([facility])[address] [place] [address] Lymphocytes/100 WBC (Bld) 33.3 % Normal 15.0-45.0 [facility] Comment on above: Performed By: #### L [id number] ####Underwriting Internship: REINIER ZHU ([id number])[facility] [place] [address] MCH (RBC) [Entitic mass] 33.9 pg Normal 26.0-34.0 [facility] Comment on above: Performed By: #### L [id number] ####Underwriting Internship: REINIER ZHU ([id number])[facility] [place] [address] MCHC 35.3 % Normal 30.5-36.0 [facility] Comment on above: Performed By: #### L [id number] ####Underwriting Internship: REINIER OVIEDOBriseidaROGER ([id number])[facility] ([facility])[address] MCV (RBC) [Entitic vol] 95.8 fL Normal 77.0-99.0 [facility] Comment on above: Performed By: #### L [id number] ####Underwriting Internship: REINIER MARKO ([id number])[facility] ([facility])[address] Monocytes (Bld) [#/Vol] 0.6 10*3/uL Normal 0.0-0.9 [facility] Comment on above: Performed By: #### L [id number] ####Underwriting Internship: REINIER MARKO ([id number])[facility] ([facility])[address] Monocytes/100 WBC (Bld) 12.8 % Normal 5.0-13.0 [facility] Comment on above: Performed By: #### L [id number] ####Underwriting Internship: REINIER MARKO ([id number])[facility] ([facility])[address] NEUTROPHILS ABSOLUTE 2.6 10*3/uL Normal 1.8-7.5 [facility] Comment on above: Performed By: #### L [id number] ####Underwriting Internship: REINIER OVIEDOVINAYAK ([id number])[facility] ([facility])[address] Neutrophils/100 WBC (Bld) 51.7 % Normal 38.0-82.0 [facility] Comment on above: Performed By: #### L [id number] ####Underwriting Internship: REINIER MORINROGER ([id number])[facility] ([facility])[address] NRBC 0.0 /100 WBCs Normal 0.0-2.0 [facility] Comment on above: Performed By: #### L [id number] ####Underwriting Internship: REINIER ZHU ([id number])[facility] [place] ([facility]AB)[address] Platelet mean volume (Bld) [Entitic vol] 8.8 fL Low 9.0-12.7 [facility] Comment on above: Performed By: #### L [id number] ####Underwriting Internship: REINIER ZHU ([id number])[facility] ([facility])[address] Platelets (Bld) [#/Vol] 137 10*3/uL Low 140-440 [facility] Comment on above: Performed By: #### L [id number] ####Underwriting Internship: REINIER ZHU ([id number])[facility] ([facility])[address] RBC (Bld) [#/Vol] 5.05 10*6/uL Normal 4.40-5.90 [facility] Comment on above: Performed By: #### L [id number] ####Underwriting Internship: REINIER ZHU ([id number])[facility] [place] ([facility])[address] WBC (Bld) [#/Vol] 5.0 10*3/uL Normal 3.6-10.7 [facility] Comment on above: Performed By: #### L [id number] ####Underwriting Internship: REINIER ZHU ([id number])[facility] [place] ([facility])[address] COMPREHENSIVE METABOLIC PANE Arnulfo 08-03-2024 Albumin [Mass/Vol] 3.6 g/dL Normal 3.5-5.0 [facility] Comment on above: Performed By: #### L [id number], LAB17 ####Underwriting Internship: REINIER ZHU ([id number])[facility] ([facility])[address] ALP [Catalytic activity/Vol] 103 U/L Normal 40-150 [facility] Comment on above: Performed By: #### L [id number], LAB17 ####Underwriting Internship: REINIER BATISTACER ([id number])[facility] ([facility])[address] ALT [Catalytic activity/Vol] 32 U/L Normal <40 [facility] Comment on above: Performed By: #### L AB46, LAB17 ####Underwriting Internship: REINIER ZHU ([id number])[facility] ([facility])[address] Anion gap [Moles/Vol] 12 mmol/L Normal 3-13 [facility] Comment on above: Performed By: #### L AB46, LAB17 ####Underwriting Internship: REINIER MORINROGER ([id number])[facility] ([facility])[address] AST [Catalytic activity/Vol] 42 U/L High <34 [facility] Comment on above: Performed By: #### L AB46, LAB17 ####Underwriting Internship: REINIER ZHU ([id number])[facility] ([facility])[address] Bilirubin [Mass/Vol] 0.3 mg/dL Normal <1.2 [facility] Comment on above: Performed By: #### L [id number], LAB17 ####Underwriting Internship: REINIER ZHU ([id number])[facility] ([facility] Calcium [Mass/Vol] 8.4 mg/dL Normal 8.4-10.2 [facility] Comment on above: Performed By: #### L [id number], LAB17 ####Underwriting Internship: REINIER ZHU ([id number])[facility] ([facility])[address] Chloride [Moles/Vol] 98 mmol/L Normal 98-107 [facility] Comment on above: Performed By: #### L AB46, LAB17 ####Underwriting Internship: REINIER BATISTACER ([id number])[facility] ([facility])[address] CO2 [Moles/Vol] 26 mmol/L Normal 22-29 [facility] Comment on above: Performed By: #### L AB46, LAB17 ####Underwriting Internship: REINIER OVIEDOBriseidaROGER ([id number])[facility] ([facility])[address] Creatinine [Mass/Vol] 0.64 mg/dL Low 0.72-1.25 [facility] Comment on above: Performed By: #### L AB46, LAB17 ####Underwriting Internship: REINIER ZHU ([id number])[facility] (SB[facility])[address] GLOMERULAR FILTRATION RATE ML/MIN/1.73 SQ M.PREDICTED >90.0 Normal >60.0 [facility] Comment on above: Result Comment: Calc ulation based on the Chronic Kidney Disease Epidemiology Collaboration (CKD-EPI) equation refit without adjustment for race Performed By: #### L AB46, LAB17 ####Underwriting Internship: REINIER ZHU ([id number])[facility] ([facility])[address] Glucose [Mass/Vol] 113 mg/dL High 74-100 [facility] Comment on above: Performed By: #### L AB46, LAB17 ####Underwriting Internship: REINIER ZHU ([id number])[facility] (SB[facility])[address] [place] [address] [place] Potassium [Moles/Vol] 4.2 mmol/L Normal 3.5-5.1 [facility] Comment on above: Result Comment: [facility] potassium values may be up to 0.5 mmol/L lower than serum values. Performed By: #### L AB46, LAB17 ####Underwriting Internship: REINIER ZHU ([id number])[facility] ([facility])[address] Protein [Mass/Vol] 7.4 g/dL Normal 6.4-8.3 [facility] Comment on above: Performed By: #### L AB46, LAB17 ####Underwriting Internship: REINIER ZHU ([id number])[facility] [place] ([facility])[address] Sodium [Moles/Vol] 136 mmol/L Normal 136-145 [facility] Comment on above: Performed By: #### L AB46, LAB17 ####Underwriting Internship: REINIER ZHU ([id number])[facility] ([facility])[address] Urea nitrogen [Mass/Vol] 5 mg/dL Low 9-23 [facility] Comment on above: Performed By: #### L AB46, LAB17 ####Underwriting Internship: REINIER ZHU ([id number])[facility] ([facility])[address] Comprehensive metabolic 1998 panelon 08-03-2024 Albumin [Mass/Vol] 3.6 g/dL 3.5 - 5.0 g/dL [facility] ALP [Catalytic activity/Vol] 103 U/L 40 - 150 U/L [facility] ALT [Catalytic activity/Vol] 32 U/L NINF - 40 U/L [facility] Anion gap [Moles/Vol] 12 mmol/L 3 - 13 mmol/L [facility] AST [Catalytic activity/Vol] 42 U/L High NINF - 34 U/L [facility] Bilirubin [Mass/Vol] 0.3 mg/dL NINF - 1.2 mg/dL [facility] Calcium [Mass/Vol] 8.4 mg/dL 8.4 - 10. 2 mg/dL [facility] Chloride [Moles/Vol] 98 mmol/L 98 - 10 7 mmol/L [facility] CO2 [Moles/Vol] 26 mmol/L 22 - 29 mmol/L [facility] Creatinine [Mass/Vol] 0.64 mg/dL Low 0.72 - 1.25 mg/dL [facility] GFR/1.73 sq M.predicted (S/P/Bld) [Vol rate/Area] - PINF [facility] Comment on above: Calculation based on the Chronic Kidney Disease Epidemiology Collaboration (CKD-EPI) equation refit without adjustment for race Glucose [Mass/Vol] 113 mg/dL High 74 - 100 mg/dL [facility] Interpretation and review of laboratory results Abnormal [facility] Potassium [Moles/Vol] 4.2 mmol/L 3.5 - 5.1 mmol/L [facility] Comment on above: Plasma potassium juan ues may be up to 0.5 mmol/L lower than serum values. Protein [Mass/Vol] 7.4 g/dL 6.4 - 8.3 g/dL [facility] Sodium [Moles/Vol] 136 mmol/L 136 - 145 mmol/L [facility] Urea nitrogen [Mass/Vol] 5 mg/dL Low 9 - 23 mg/dL [facility] DRUGS OF ABUSEon 08-03-2024 AMPHETAMINE SCREEN Negative Normal [facility] Comment on above: Performed By: #### L [id number] ####Underwriting Internship: REINEIR ZHU ([id number])[facility] BARBITURATES SCREEN Negative Normal [facility] Comment on above: Performed By: #### L [id number] ####Underwriting Internship: REINIER ZHU ([id number])[facility] ([facility])[address] BENZODIAZEPINE SCREEN Negative Normal [facility] Comment on above: Performed By: #### L [id number] ####Underwriting Internship: REINIER ZHU ([id number])[facility] ([facility])[address] COCAINE METAB. SCREEN Negative Normal [facility] Comment on above: Performed By: #### L [id number] ####Underwriting Internship: REINIER ZHU ([id number])[facility] ([facility])[address] FENTANYL SCREEN, UR QUAL Negative Normal [facility] Comment on above: Result Comment: [place] Lagunas COMMENTS:The expected value for all of the drugs listed above is Negative.The following drugs or drug groups have been screened for by Immunoassay at the following thresholds:Amphetamine class (1000 ng/mL)Barbiturates (200 ng/mL)Benzodiazepines (200 ng/mL)Cocaine (300 ng/mL)Methadone (300 ng/mL)Opiates (300 ng/mL)Oxycodone (100 ng/mL)PCP (25 ng/mL)Fentanyl (1.0 ng/ml)NOTE: These results are for medical treatment only. Analysis performed using non-forensic procedures. POSITIVE results are NOT confirmed by a more specificalternative method unless requested. If confirmation is needed, request confirmation under separate order. Performed By: #### L [id number] ####Underwriting Internship: REINIER ZHU ([id number])[facility] ([facility])[address] METHADONE SCREEN Negative [facility] Comment on above: Performed By: #### L [id number] ####Underwriting Internship: REINIER ZHU ([id number])[facility] ([facility])[address] OPIATES SCREEN Negative Normal [facility] Comment on above: Performed By: #### L [id number] ####Underwriting Internship: REINIER ZHU ([id number])[facility] ([facility])[address] [place] [address] OXYCODONE SCREEN Negative [facility] Comment on above: Performed By: #### L [id number] ####Underwriting Internship: REINIER ZHU ([id number])[facility] PHENCYCLIDINE SCREEN Negative Normal [facility] Comment on above: Performed By: #### L [id number] ####Underwriting Internship: REINIER ZHU ([id number])[facility] ([facility])[address] ED Nursing Noteon 08-03-2024 ED Nursing Note Called report to RN at [facility]. Normal [facility] ED Nursing Note Patient here for a r yasmani on his right rib area around to his back. Burning and painful. Patient also wants to be in rehab for his drinking his last drink was today and he drinks at least 8 tall boys per day. Normal [facility] ED Provider Noteon ED Provider Note Normal [facility] ETHANOLon 08-03-2024 ETHANOL IN SER/PLAS 375 mg/dL Critically high <10 [facility] Comment on above: Result Comment: [place] R COMMENTS: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NOTE: This result is for medical treatment only. Analysis performed using non-forensic procedures. Performed By: #### L AB46, LAB17 ####Underwriting Internship: REINIER ZHU ([id number])[facility] ([facility])[address] [place] [address] Ethanol (Bld) [Mass/Vol]Rajanie red By: Jacqueline Smith on 08-03-2024 Ethanol [Mass/Vol] 375 mg/dL Critically high NINF - 10 mg/dL [facility] Interpretation and review of laboratory results Abnormal [facility] NIGHTCLUB MANAGER depression is se en >100 mg/dL. NOTE: This result is for medical treatment only. Analysis performed using non-forensic procedures. [facility] Laboratory - Drug toxicology on 08-03-2024 Amphetamines Screen method >1000 ng/mL Ql (U) Negative [facility] Barbiturates Screen method >200 ng/mL Ql (U) Negative [facility] Benzodiazepines Ql (U) Negative [facility] Methadone Screen Ql (U) Negative [facility] Opiates Screen Ql (U) Negative [facility] oxyCODONE Ql (U) Negative [facility] Phencyclidine Ql (U) Negative [facility] Laboratory - Microbiology an d Antimicrobial susceptibilityOrdered By: Chip Clinton on 08-03-2024 SARS-CoV-2 (COVID-19) Ag IA.rapid Ql (Resp) Negative Negative [facility] Comment on above: A negative result do es not rule out the possibility of SARS-CoV-2 infection. NAAT-based methods should be considered for symptomatic patients presenting greater than seven days after onset of symptoms. Method: Lateral flow immunoassay. Fact sheets for healthcare providers and patients can be found at the following sites: https://www.fda.gov/media/554375/download https://www.fda.gov/media/615762/download No Panel Informationon 08-03 COCAINE METAB. SCREEN Negative [facility] FENTANYL SCREEN, UR QUAL Negative [facility] The expected value f or all of the drugs listed above is Negative. The following drugs or drug groups have been screened for by Immunoassay at the following thresholds: Amphetamine class (1000 ng/mL) Barbiturates (200 ng/mL) Benzodiazepines (200 ng/mL) Cocaine (300 ng/mL) Methadone (300 ng/mL) Opiates (300 ng/mL) Oxycodone (100 ng/mL) PCP (25 ng/mL) Fentanyl (1.0 ng/ml) NOTE: These results are for medical treatment only. Analysis performed using non-forensic procedures. POSITIVE results are NOT confirmed by a more specific alternative method unless requested. If confirmation is needed, request confirmation under separate order. [facility] SARS-COV-2 ANTIGENon 025 SARS-COV-2 ANTIGEN Normal [facility] Comment on above: Performed By: #### L [id number] ####Underwriting Internship: REINIER ZHU ([id number])[facility] ([facility])[address] [place] [address] SARS-CoV-2 (COVID-19) Ag IA. rapid Ql (Resp)Ordered By: Chip Clinton on 08-03-2024 Interpretation and review of laboratory results Normal [facility] 36on 07-16-2024 36 Attempt #3 LVM for p atient to call our office to schedule follow up to review CT results. Normal [facility] Progress Noteon 07-03-2024 Progress Note Normal [facility] ED Provider Noteon ED Provider Note Normal [facility] XR Foot - left 2 Viewson 1. No acute finding. Report Dictated on Electronically Signed By: Larry Carvalho MD Electronically Signed Date/Time: 07/01/2024 8:07 PM EDT [facility] RADIOLOGY SYSTEM Patient Name: MARIA DE JESUS SÁNCHEZ : 1965 Exam Date/Time: 07/01/2024 19:45 Procedure: XR FOOT 1-2 VIEWS LEFT Ordering Provider: MELARA AUSTIN Reason For Exam: dropped dresser on L distal 3rd MT and toe LEFT FOOT TWO VIEWS CLINICAL INDICATION: dropped dresser on L distal 3rd MT and toe TECHNIQUE: Two views of the left foot. COMPARISON: None FINDINGS: No fracture dislocation or acute bone destruction. No soft tissue gas or foreign body. [facility] RADI[facility]Y [facility] Larry Carvalho MD - 07/01/2024 Patient Name: MARIA DE JESUS HOGAN : 1965 Exam Date/Time: 07/01/2024 19:45 Procedure: XR FOOT 1-2 VIEWS LEFT Ordering Provider: MELARA AUSTIN Reason For Exam: dropped dresser on L distal 3rd MT and toe LEFT FOOT TWO VIEWS CLINICAL INDICATION: dropped dresser on L distal 3rd MT and toe TECHNIQUE: Two views of the left foot. COMPARISON: None FINDINGS: No fracture dislocation or acute bone destruction. No soft tissue gas or foreign body. IMPRESSION: 1. No acute finding. Report Dictated on Electronically Signed By: Larry Carvalho MD Electronically Signed Date/Time: 07/01/2024 8:07 PM EDT [facility] Radiology Study observation (narrative) [facility] XR Foot - left 2 ViewsOrdere d By: Larry Carvalho on 07-01-2024 [facility] Work Phone: 36on 06-25-2024 36 LVM for patient to c all our office to reschedule missed appointment with ML. Will send [employer] message as well. Normal [facility] 36on 06-23-2024 36 Normal [facility] 36 Normal [facility] 36on 06-19-2024 36 Normal [facility] Progress Noteon 06-16-2024 Progress Note Normal [facility] CT CHEST WO IV CONTRASTon CT CHEST WO IV CONTRAST Normal [facility] 36on 06-08-2024 36 We have been unable to reach your patient to schedule their testing. Test Name: US zaidi complete 1st attempt, via [employer]ge message, 05/23/24 JS 2nd attempt called LVBryant. ROSHNI to office. sent [employer]ge message. 06/08/24 LR [facility] 36on 06-05-2024 36 LVM [facility] [id number] 06-04-2024 [id number] Social work consult placed for patient. Notified areas of S NAHOMY noted at current time. Social work consult is cleared. [facility] Nursing Noteon 06-04-2024 Nursing Note [facility] Nursing Note No issue reported af ter the Naltrexone pill given to the patient. He reports last time he took the medication it really helped his cravings. He reports taking the oral and injection form once in the past. Normal [facility] Nursing Note [facility] Nursing Note Patient is up and st made[facility], seen socializing in group room. Pt is cooperative and med compliant. Pt denies SI/HI/AVH. Pt encouraged to notify staff for any questions and concerns. Normal [facility] Progress Noteon 06-04-2024 Progress Note [facility] Progress Note Nutrition rescreen completed. Patient assigned a level 1. [facility] [id number] 06-03-2024 [id number] [facility] 36on 06-03-2024 36 LVM for pt to call o arianneice to reschedule CT scan and follow up kavon Lara. [facility] 94on 06-03-2024 94 [facility] Nursing Noteon 06-03-2024 Nursing Note Normal [facility] Nursing Note Patient received Ishan otine Lozenge as per orders PRN PO at 1340, and 1740. Normal [facility] Nursing Note Med. Rec. Done with Jesse at [facility] at 1230. Normal [facility] Nursing Note Patient received PO PRN Tylenol as per orders at 1228 for lower back arthritis pain. Normal [facility] Nursing Note Patient received Ishan otine Lozenge at 1139 and 1705 PRN PO as per orders. Patient received PO PRN Albuterol as per orders at 1705. Normal [facility] Nursing Note Normal [facility] 36on 06-02-2024 36 Normal [facility] 36 Normal [facility] CBC (HEMOGRAM)on 06-02-2024 Erythrocyte distribution width (RBC) [Ratio] 13.4 % Normal 11.5-15.0 [facility] Comment on above: Performed By: #### L [id number] ####Underwriting Internship: REINIER ZHU ([id number])[facility] ([facility])[address] [place] [address] Hematocrit (Bld) [Volume fraction] 45.6 % Normal 40.0-52.0 [facility] Comment on above: Performed By: #### L [id number] ####Underwriting Internship: REINIER ZHU ([id number])[facility] ([facility])[address] Hemoglobin (Bld) [Mass/Vol] 15.8 g/dL Normal 13.0-18.0 [facility] Comment on above: Performed By: #### L [id number] ####Underwriting Internship: REINIER ZHU ([id number])[facility] ([facility])[address] MCH (RBC) [Entitic mass] 33.1 pg Normal 26.0-34.0 [facility] Comment on above: Performed By: #### L [id number] ####Underwriting Internship: REINIER ZHU ([id number])[facility] ([facility])[address] MCHC 34.6 % Normal 30.5-36.0 [facility] Comment on above: Performed By: #### L [id number] ####Underwriting Internship: REINIER ZHU ([id number])[facility] ([facility])[address] MCV (RBC) [Entitic vol] 95.6 fL Normal 77.0-99.0 [facility] Comment on above: Performed By: #### L [id number] ####Underwriting Internship: REINIER ZHU ([id number])[facility] ([facility])[address] Platelet mean volume (Bld) [Entitic vol] 8.8 fL Low 9.0-12.7 [facility] Comment on above: Performed By: #### L [id number] ####Underwriting Internship: REINIER ZHU ([id number])[facility] [place] ([facility])[address] Platelets (Bld) [#/Vol] 184 10*3/uL Normal 140-440 [facility] Comment on above: Performed By: #### L [id number] ####Underwriting Internship: REINIER ZHU ([id number])[facility] ([facility])[address] RBC (Bld) [#/Vol] 4.77 10*6/uL Normal 4.40-5.90 [facility] Comment on above: Performed By: #### L [id number] ####Underwriting Internship: REINIER ZHU ([id number])[facility] ([facility])[address] WBC (Bld) [#/Vol] 6.7 10*3/uL Normal 3.6-10.7 [facility] Comment on above: Performed By: #### L [id number] ####Underwriting Internship: REINIER ZHU ([id number])[facility] ([facility])[address] CBC panel Auto (Bld)on 06-02 Erythrocyte distribution width (RBC) [Ratio] 13.4 % 11.5 - 15.0 % [facility] Hematocrit (Bld) [Volume fraction] 45.6 % 40.0 - 52.0 % [facility] Hemoglobin (Bld) [Mass/Vol] 15.8 g/dL 13.0 - 18.0 g/dL [facility] Interpretation and review of laboratory results Abnormal [facility] MCH (RBC) [Entitic mass] 33.1 pg 26.0 - 34.0 pg [facility] MCHC (RBC) [Mass/Vol] 34.6 % 30.5 - 36.0 % [facility] MCV (RBC) [Entitic vol] 95.6 fL 77.0 - 99.0 fL [facility] Platelet mean volume (Bld) [Entitic vol] 8.8 fL Low 9.0 - 12.7 fL [facility] Platelets (Bld) [#/Vol] 184 10*3/uL 140 - 440 10*3/uL [facility] RBC (Bld) [#/Vol] 4.77 10*6/uL 4.40 - 5.90 10*6/uL [facility] WBC (Bld) [#/Vol] 6.7 10*3/uL 3.6 - 10.7 10*3/uL [facility] COMPREHENSIVE METABOLIC PANE Arnulfo 06-02-2024 Albumin [Mass/Vol] 3.6 g/dL Normal 3.5-5.0 [facility] Comment on above: Performed By: #### L AB46, LAB17, [id number] ####Underwriting Internship: REINIER ZHU ([id number])[facility] ([facility])[address] [place] [address] ALP [Catalytic activity/Vol] 110 U/L Normal 40-150 [facility] Comment on above: Performed By: #### Jose Carlos AB46, LAB17, [id number] ####Underwriting Internship: REINIER ZHU ([id number])[facility] ALT [Catalytic activity/Vol] 44 U/L High <40 [facility] Comment on above: Performed By: #### L AB46, LAB17, [id number] ####Underwriting Internship: REINIER ZHU ([id number])[facility] ([facility])[address] Anion gap [Moles/Vol] 14 mmol/L High 3-13 [facility] Comment on above: Performed By: #### L AB46, LAB17, [id number] ####Underwriting Internship: REINIER MARKO ([id number])[facility] ([facility])[address] AST [Catalytic activity/Vol] 49 U/L High <34 [facility] Comment on above: Performed By: #### L AB46, LAB17, [id number] ####Underwriting Internship: REINIER OVIEDOVINAYAK ([id number])[facility] ([facility])[address] Bilirubin [Mass/Vol] 0.4 mg/dL Normal <1.2 [facility] Comment on above: Performed By: #### L AB46, LAB17, [id number] ####Underwriting Internship: REINIER OVIEDOVINAYAK ([id number])[facility]IBOL[facility] ([facility])[address] Calcium [Mass/Vol] 8.9 mg/dL Normal 8.4-10.2 [facility] Comment on above: Performed By: #### L AB46, LAB17, [id number] ####Underwriting Internship: REINIER OVIEDOVINAYAK ([id number])[facility] ([facility])[address] Chloride [Moles/Vol] 97 mmol/L Low 98-107 [facility] Comment on above: Performed By: #### L AB46, LAB17, [id number] ####Underwriting Internship: REINIER OVIEDOVINAYAK ([id number])[facility] ([facility])[address] [place] [address] [place] CO2 [Moles/Vol] 23 mmol/L Normal 22-29 [facility] Comment on above: Performed By: #### L AB46, LAB17, [id number] ####Underwriting Internship: REINIER OVIEDOVINAYAK ([id number])[facility] ([facility])[address] Creatinine [Mass/Vol] 0.59 mg/dL Low 0.72-1.25 [facility] Comment on above: Performed By: #### L AB46, LAB17, [id number] ####Underwriting Internship: REINIER ZHU ([id number])[facility] ([facility])[address] GLOMERULAR FILTRATION RATE ML/MIN/1.73 SQ M.PREDICTED >90.0 Normal >60.0 [facility] Comment on above: Result Comment: Calc ulation based on the Chronic Kidney Disease Epidemiology Collaboration (CKD-EPI) equation refit without adjustment for race Performed By: #### L AB46, LAB17, [id number] ####Underwriting Internship: REINIER ZHU ([id number])[facility] ([facility])[address] [place] [address] Glucose [Mass/Vol] 85 mg/dL Normal 74-100 [facility] Comment on above: Performed By: #### L AB46, LAB17, [id number] ####Underwriting Internship: REINIER ZHU ([id number])[facility] ([facility])[address] [place] [address] Potassium [Moles/Vol] 4.2 mmol/L Normal 3.5-5.1 [facility] Comment on above: Result Comment: [facility] potassium values may be up to 0.5 mmol/L lower than serum values. Performed By: #### L AB46, LAB17, [id number] ####Underwriting Internship: REINIER ZHU ([id number])[facility] ([facility])[address] [place] [address] Protein [Mass/Vol] 7.2 g/dL Normal 6.4-8.3 [facility] Comment on above: Performed By: #### L AB46, LAB17, [id number] ####Underwriting Internship: REINIER ZHU ([id number])[facility] ([facility])[address] [place] [address] Sodium [Moles/Vol] 134 mmol/L Low 136-145 [facility] Comment on above: Performed By: #### L AB46, LAB17, [id number] ####Underwriting Internship: REINIER ZHU ([id number])[facility] ([facility])[address] Urea nitrogen [Mass/Vol] 3 mg/dL Low 9-23 [facility] Comment on above: Performed By: #### L AB46, LAB17, [id number] ####Underwriting Internship: REINIER ZHU ([id number])[facility] ([facility])[address] Comprehensive metabolic 1998 panelon 06-02-2024 Albumin [Mass/Vol] 3.6 g/dL 3.5 - 5.0 g/dL [facility] ALP [Catalytic activity/Vol] 110 U/L 40 - 150 U/L [facility] ALT [Catalytic activity/Vol] 44 U/L High NINF - 40 U/L [facility] Anion gap [Moles/Vol] 14 mmol/L High 3 - 13 mmol/L [facility] AST [Catalytic activity/Vol] 49 U/L [facility]L [facility] Bilirubin [Mass/Vol] 0.4 mg/dL [facility] - 1.[facility] mg/dL [facility] Calcium [Mass/Vol] 8.9 mg/dL 8.4 - 10. 2 mg/dL [facility] Chloride [Moles/Vol] 97 mmol/L Low 98 - 10 7 mmol/L [facility] CO2 [Moles/Vol] 23 mmol/L 22 - 29 mmol/L [facility] Creatinine [Mass/Vol] 0.59 mg/dL Low 0.72 - 1.25 mg/dL [facility] GFR/1.73 sq M.predicted (S/P/Bld) [Vol rate/Area] - PINF [facility] Comment on above: Calculation based on the Chronic Kidney Disease Epidemiology Collaboration (CKD-EPI) equation refit without adjustment for race Glucose [Mass/Vol] 85 mg/dL 74 - 100 mg/dL [facility] Potassium [Moles/Vol] 4.2 mmol/L 3.5 - 5.1 mmol/L [facility] Comment on above: Plasma potassium juan ues may be up to 0.5 mmol/L lower than serum values. Protein [Mass/Vol] 7.2 g/dL 6.4 - 8.3 g/dL [facility] Sodium [Moles/Vol] 134 mmol/L Low 136 - 145 mmol/L [facility] Urea nitrogen [Mass/Vol] 3 mg/dL Low 9 - 23 mg/dL [facility] DRUGS OF ABUSEon 06-02-2024 AMPHETAMINE SCREEN Negative Normal [facility] Comment on above: Performed By: #### L [id number] ####Underwriting Internship: REINIER ZHU ([id number])[facility] BARBITURATES SCREEN Positive Normal [facility] Comment on above: Performed By: #### L [id number] ####Underwriting Internship: REINIER ZHU ([id number])[facility] ([facility])[address] BENZODIAZEPINE SCREEN Negative Normal [facility] Comment on above: Performed By: #### L [id number] ####Underwriting Internship: REINIER ZHU ([id number])[facility] COCAINE METAB. SCREEN Negative Normal [facility] Comment on above: Performed By: #### L [id number] ####Underwriting Internship: REIINER MORINROGER ([id number])[facility] ([facility])[address] FENTANYL SCREEN, UR QUAL Negative Normal [facility] Comment on above: Result Comment: [place] Lagunas COMMENTS:The expected value for all of the drugs listed above is Negative.The following drugs or drug groups have been screened for by Immunoassay at the following thresholds:Amphetamine class (1000 ng/mL)Barbiturates (200 ng/mL)Benzodiazepines (200 ng/mL)Cocaine (300 ng/mL)Methadone (300 ng/mL)Opiates (300 ng/mL)Oxycodone (100 ng/mL)PCP (25 ng/mL)Fentanyl (1.0 ng/ml)NOTE: These results are for medical treatment only. Analysis performed using non-forensic procedures. POSITIVE results are NOT confirmed by a more specificalternative method unless requested. If confirmation is needed, request confirmation under separate order. Performed By: #### L [id number] ####Underwriting Internship: REINIER ZHU ([id number])[facility] [place] ([facility])[address] METHADONE SCREEN Negative Normal [facility] Comment on above: Performed By: #### L [id number] ####Underwriting Internship: REINIERJA ZHU ([id number])[facility] [place] ([facility])[address] OPIATES SCREEN Negative Normal [facility] Comment on above: Performed By: #### L [id number] ####Underwriting Internship: REINIERJA ZHU ([id number])[facility] ([facility])[address] OXYCODONE SCREEN Negative Normal [facility] Comment on above: Performed By: #### L [id number] ####Underwriting Internship: REINIER OVIEDOVINAYAK ([id number])[facility] [place] ([facility])[address] PHENCYCLIDINE SCREEN Negative Normal [facility] Comment on above: Performed By: #### L [id number] ####Underwriting Internship: REINIER MARKO ([id number])[facility] ([facility])[address] ED Nursing Noteon 06-02-2024 ED Nursing Note Called report to Veronica @ [address] [place] [address] ED Nursing Note Pt normally drink 6- 9 tall boys daily. Today pt only drank 3 and his last drink was about 5pm today. Normal [facility] ED Nursing Note Pt last drink 30 min utes ago. Pt drank 3 tallboys today. Normally drinks 6-9 tallboys. Would like to get detoxed [facility] ED Provider Noteon ED Provider Note [facility] ETHANOLon 06-02-2024 ETHANOL IN SER/PLAS 110 mg/dL High <10 [facility] Comment on above: Result Comment: [place] Lagunas COMMENTS: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NOTE: This result is for medical treatment only. Analysis performed using non-forensic procedures. Performed By: #### L AB46, LAB17, [id number] ####Underwriting Internship: REINIER ZHU ([id number])[facility] ([facility])[address] [place] [address] Ethanol (Bld) [Mass/Vol]on 0 06-02-2024 Ethanol [Mass/Vol] 110 mg/dL High NINF - 10 mg/dL [facility] NIGHTCLUB MANAGER depression is se en >100 mg/dL. NOTE: This result is for medical treatment only. Analysis performed using non-forensic procedures. [facility] Laboratory - Chemistry and C hemistry - challengeon 06-02-2024 Magnesium [Mass/Vol] 2 mg/dL 1.6 - 2 .6 mg/dL [facility] Laboratory - Drug toxicology on 06-02-2024 Amphetamines Screen method >1000 ng/mL Ql (U) Negative [facility] Barbiturates Screen method >200 ng/mL Ql (U) Positive [facility] Benzodiazepines Ql (U) Negative [facility] Methadone Screen Ql (U) Negative [facility] Opiates Screen Ql (U) Negative [facility] oxyCODONE Ql (U) Negative [facility] Phencyclidine Ql (U) Negative [facility] Laboratory - Microbiology an d Antimicrobial susceptibilityOrdered By: Johnathan Giron on 06-02-2024 SARS-CoV-2 (COVID-19) Ag IA.rapid Ql (Resp) Negative Negative [facility] Comment on above: A negative result do es not rule out the possibility of SARS-CoV-2 infection. NAAT-based methods should be considered for symptomatic patients presenting greater than seven days after onset of symptoms. Method: Lateral flow immunoassay. Fact sheets for healthcare providers and patients can be found at the following sites: https://www.fda.gov/media/628606/download https://www.fda.gov/media/730909/download MAGNESIUMon 06-02-2024 Magnesium [Mass/Vol] 2.0 mg/dL Normal 1.6-2.6 [facility] Comment on above: Result Comment: ORDE R COMMENTS:Higher values can be expected in females during menses. Performed By: #### L AB46, LAB17, [id number] ####Underwriting Internship: REINIER ZHU ([id number])[facility] ([facility])[address] Magnesium [Mass/Vol]on 06-02 Interpretation and review of laboratory results Normal [facility] Higher values can be expected in females during menses. [facility] No Panel Informationon 06-02 COCAINE METAB. SCREEN Negative [facility] FENTANYL SCREEN, UR QUAL Negative [facility] The expected value f or all of the drugs listed above is Negative. The following drugs or drug groups have been screened for by Immunoassay at the following thresholds: Amphetamine class (1000 ng/mL) Barbiturates (200 ng/mL) Benzodiazepines (200 ng/mL) Cocaine (300 ng/mL) Methadone (300 ng/mL) Opiates (300 ng/mL) Oxycodone (100 ng/mL) PCP (25 ng/mL) Fentanyl (1.0 ng/ml) NOTE: These results are for medical treatment only. Analysis performed using non-forensic procedures. POSITIVE results are NOT confirmed by a more specific alternative method unless requested. If confirmation is needed, request confirmation under separate order. [facility] Interpretation and review of laboratory results Abnormal [facility] SARS-COV-2 ANTIGENon 025 SARS-COV-2 ANTIGEN Normal [facility] Comment on above: Performed By: #### L [id number] ####Underwriting Internship: REINIER ZHU ([id number])[facility] ([facility])[address] [place] [address] SARS-CoV-2 (COVID-19) Ag IA. rapid Ql (Resp)Ordered By: Johnathan Giron on 06-02-2024 Interpretation and review of laboratory results Normal [facility] Progress Noteon 05-28-2024 Progress Note Normal [facility] CT CERVICAL SPINE WO IV CONT RASTon 05-25-2024 CT CERVICAL SPINE WO IV CONTRAST Normal [facility] CT Cervical spine WO contras ton 05-25-2024 Patient Name: MARIA DE JESUS SÁNCHEZ : 1965 Exam Date/Time: 05/25/2024 15:59 Procedure: CT CERVICAL SPINE WO IV CONTRAST Ordering Provider: MELARA AUSTIN Reason For Exam: fall down stairs, hit head, intoxicated EXAMINATION: CT HEAD WO IV CONTRAST, CT CERVICAL SPINE WO IV CONTRAST CLINICAL HISTORY: Fall, pain TECHNIQUE: Serial axial unenhanced images were obtained from the vertex to the foramen magnum. Spiral, high resolution axial unenhanced images were obtained from the skull base to the cervicothoracic junction with sagittal and coronal planar reconstructions. Dose reduction was employed with automated exposure control. COMPARISON: Head CT 04/08/2011 RESULT: BRAIN: Acute change: No evidence of an acute contusion or other acute parenchymal process. Hemorrhage: No evidence of acute intracranial hemorrhage. Mass lesion / Mass effect: There is no evidence of an intracranial mass or extraaxial fluid collection. No significant mass effect. Chronic change: Atherosclerotic calcifications of the carotid siphons. No apparent parenchymal changes. Parenchyma: There is mild generalized volume loss. Ventricles: The ventricles are within normal limits of size and configuration for age. Paranasal sinuses and skull base: No calvarial fracture. The visualized paranasal sinuses are grossly clear. The skull base and visualized extracranial soft tissues are grossly normal. CERVICAL: Assessment of the mid to lower cervical spinous by quantum mottling and photon starvation. Counting reference: Craniocervical junction. Anatomic Variants: None. Alignment: Straightening of normal cervical lordosis, perhaps positional possibly due to spasm. Craniocervical junction: Craniocervical junction is intact. Spurring of the atlantodental interval. Osseous structures/fracture: No evidence of a lytic or blastic process in the visualized spine. No evidence of acute fracture. Cervical soft tissues: The paraspinal soft tissues planes are maintained. Atherosclerotic ossifications of the carotid bifurcations. Vessel patency cannot be assessed on noncontrast imaging. Degenerative changes: Mild to moderate intervertebral disc space narrowing of C5-C6, C6-C7 and C7-T1. Mild intervertebral disc space narrowing of C4-C5. Multilevel disc osteophyte complex. No high-grade bony canal stenosis. Multilevel uncovertebral hypertrophy and facet hypertrophy. [facility] RADIOLOGY SYSTEM Cezar Smith MD - 05/25/2024 Patient Name: MARIA DE JESUS HOGAN : 1965 Exam Date/Time: 05/25/2024 15:59 Procedure: CT CERVICAL SPINE WO IV CONTRAST Ordering Provider: MELARA AUSTIN Reason For Exam: fall down stairs, hit head, intoxicated EXAMINATION: CT HEAD WO IV CONTRAST, CT CERVICAL SPINE WO IV CONTRAST CLINICAL HISTORY: Fall, pain TECHNIQUE: Serial axial unenhanced images were obtained from the vertex to the foramen magnum. Spiral, high resolution axial unenhanced images were obtained from the skull base to the cervicothoracic junction with sagittal and coronal planar reconstructions. Dose reduction was employed with automated exposure control. COMPARISON: Head CT 04/08/2011 RESULT: BRAIN: Acute change: No evidence of an acute contusion or other acute parenchymal process. Hemorrhage: No evidence of acute intracranial hemorrhage. Mass lesion / Mass effect: There is no evidence of an intracranial mass or extraaxial fluid collection. No significant mass effect. Chronic change: Atherosclerotic calcifications of the carotid siphons. No apparent parenchymal changes. Parenchyma: There is mild generalized volume loss. Ventricles: The ventricles are within normal limits of size and configuration for age. Paranasal sinuses and skull base: No calvarial fracture. The visualized paranasal sinuses are grossly clear. The skull base and visualized extracranial soft tissues are grossly normal. CERVICAL: Assessment of the mid to lower cervical spinous by quantum mottling and photon starvation. Counting reference: Craniocervical junction. Anatomic Variants: None. Alignment: Straightening of normal cervical lordosis, perhaps positional possibly due to spasm. Craniocervical junction: Craniocervical junction is intact. Spurring of the atlantodental interval. Osseous structures/fracture: No evidence of a lytic or blastic process in the visualized spine. No evidence of acute fracture. Cervical soft tissues: The paraspinal soft tissues planes are maintained. Atherosclerotic ossifications of the carotid bifurcations. Vessel patency cannot be assessed on noncontrast imaging. Degenerative changes: Mild to moderate intervertebral disc space narrowing of C5-C6, C6-C7 and C7-T1. Mild intervertebral disc space narrowing of C4-C5. Multilevel disc osteophyte complex. No high-grade bony canal stenosis. Multilevel uncovertebral hypertrophy and facet hypertrophy. IMPRESSION: No CT evidence of an acute intracranial abnormality. No evidence of acute cervical spine fracture. Degenerative changes as discussed. Anatomic Variant: None. Assume 7 cervical vertebrae with counting from the craniocervical junction. Report Dictated on Electronically Signed By: Cezar Smith MD Electronically Signed Date/Time: 05/25/2024 4:39 PM EST [facility] Radiology Study observation (narrative) [facility] CT HEAD WO IV CONTRASTon CT HEAD WO IV CONTRAST Normal [facility] CT Head WO contraston 2024 Patient Name: MARIA DE JESUS SÁNCHEZ : 1965 Exam Date/Time: 05/25/2024 15:59 Procedure: CT HEAD WO IV CONTRAST Ordering Provider: MELARA AUSTIN Reason For Exam: fall down 8 stairs, hit head, questionable LOC, intoxicated EXAMINATION: CT HEAD WO IV CONTRAST, CT CERVICAL SPINE WO IV CONTRAST CLINICAL HISTORY: Fall, pain TECHNIQUE: Serial axial unenhanced images were obtained from the vertex to the foramen magnum. Spiral, high resolution axial unenhanced images were obtained from the skull base to the cervicothoracic junction with sagittal and coronal planar reconstructions. Dose reduction was employed with automated exposure control. COMPARISON: Head CT 04/08/2011 RESULT: BRAIN: Acute change: No evidence of an acute contusion or other acute parenchymal process. Hemorrhage: No evidence of acute intracranial hemorrhage. Mass lesion / Mass effect: There is no evidence of an intracranial mass or extraaxial fluid collection. No significant mass effect. Chronic change: Atherosclerotic calcifications of the carotid siphons. No apparent parenchymal changes. Parenchyma: There is mild generalized volume loss. Ventricles: The ventricles are within normal limits of size and configuration for age. Paranasal sinuses and skull base: No calvarial fracture. The visualized paranasal sinuses are grossly clear. The skull base and visualized extracranial soft tissues are grossly normal. CERVICAL: Assessment of the mid to lower cervical spinous by quantum mottling and photon starvation. Counting reference: Craniocervical junction. Anatomic Variants: None. Alignment: Straightening of normal cervical lordosis, perhaps positional possibly due to spasm. Craniocervical junction: Craniocervical junction is intact. Spurring of the atlantodental interval. Osseous structures/fracture: No evidence of a lytic or blastic process in the visualized spine. No evidence of acute fracture. Cervical soft tissues: The paraspinal soft tissues planes are maintained. Atherosclerotic ossifications of the carotid bifurcations. Vessel patency cannot be assessed on noncontrast imaging. Degenerative changes: Mild to moderate intervertebral disc space narrowing of C5-C6, C6-C7 and C7-T1. Mild intervertebral disc space narrowing of C4-C5. Multilevel disc osteophyte complex. No high-grade bony canal stenosis. Multilevel uncovertebral hypertrophy and facet hypertrophy. [facility] Cezar Smith MD - 05/25/2024 Patient Name: MARIA DE JESUS HOGAN : 1965 Exam Date/Time: 05/25/2024 15:59 Procedure: CT HEAD WO IV CONTRAST Ordering Provider: MELARA AUSTIN Reason For Exam: fall down 8 stairs, hit head, questionable LOC, intoxicated EXAMINATION: CT HEAD WO IV CONTRAST, CT CERVICAL SPINE WO IV CONTRAST CLINICAL HISTORY: Fall, pain TECHNIQUE: Serial axial unenhanced images were obtained from the vertex to the foramen magnum. Spiral, high resolution axial unenhanced images were obtained from the skull base to the cervicothoracic junction with sagittal and coronal planar reconstructions. Dose reduction was employed with automated exposure control. COMPARISON: Head CT 04/08/2011 RESULT: BRAIN: Acute change: No evidence of an acute contusion or other acute parenchymal process. Hemorrhage: No evidence of acute intracranial hemorrhage. Mass lesion / Mass effect: There is no evidence of an intracranial mass or extraaxial fluid collection. No significant mass effect. Chronic change: Atherosclerotic calcifications of the carotid siphons. No apparent parenchymal changes. Parenchyma: There is mild generalized volume loss. Ventricles: The ventricles are within normal limits of size and configuration for age. Paranasal sinuses and skull base: No calvarial fracture. The visualized paranasal sinuses are grossly clear. The skull base and visualized extracranial soft tissues are grossly normal. CERVICAL: Assessment of the mid to lower cervical spinous by quantum mottling and photon starvation. Counting reference: Craniocervical junction. Anatomic Variants: None. Alignment: Straightening of normal cervical lordosis, perhaps positional possibly due to spasm. Craniocervical junction: Craniocervical junction is intact. Spurring of the atlantodental interval. Osseous structures/fracture: No evidence of a lytic or blastic process in the visualized spine. No evidence of acute fracture. Cervical soft tissues: The paraspinal soft tissues planes are maintained. Atherosclerotic ossifications of the carotid bifurcations. Vessel patency cannot be assessed on noncontrast imaging. Degenerative changes: Mild to moderate intervertebral disc space narrowing of C5-C6, C6-C7 and C7-T1. Mild intervertebral disc space narrowing of C4-C5. Multilevel disc osteophyte complex. No high-grade bony canal stenosis. Multilevel uncovertebral hypertrophy and facet hypertrophy. IMPRESSION: No CT evidence of an acute intracranial abnormality. No evidence of acute cervical spine fracture. Degenerative changes as discussed. Anatomic Variant: None. Assume 7 cervical vertebrae with counting from the craniocervical junction. Report Dictated on Electronically Signed By: Cezar Smith MD Electronically Signed Date/Time: 05/25/2024 4:39 PM [facility] Radiology Study observation (narrative) [facility] ED Nursing Noteon 05-25-2024 ED Nursing Note Pt was seen standing in his room and closed the curtain. [facility] ED Nursing Note Patient to room 7 wi th c/o a fall down steps today, and hitting his head. Patient has been drinking alcohol today and reports he has drank 3 tall boys today. V/S obtained call light within reach. [facility] ED Provider Noteon ED Provider Note [facility] No Panel Informationon 05-[address] evidence of an acute intracranial abnormality. No evidence of acute cervical spine fracture. Degenerative changes as discussed. Anatomic Variant: None. Assume 7 cervical vertebrae with counting from the craniocervical junction. Report Dictated on Electronically Signed By: Cezar Smith MD Electronically Signed Date/Time: 05/25/2024 4:39 PM [facility]OLOGY [facility] No Panel InformationOrdered By: Cezar Smith on 05-25-2024 [facility] Work Phone: 36on 05-23-2024 36 We have been unable to reach your patient to schedule their testing. Test Name: TTE 2nd attempt, my chart message, TE to office, cancel request on 05/20/24. JS 1st attempt LVM on 08.10.23 SDS [facility] Progress Noteon 05-20-2024 Progress Note [facility] Progress Noteon 05-14-2024 Progress Note Missed Session Unexcused Pt did not call or show for Scheduled Assessment on this date. [facility] 36on 05-13-2024 36 Appointment rescheduled. [facility] 36 Maria De Jesus Farr Samira to [facility] Clinical Career Technical Supervisor (supporting You) 05/12/24 4:20 PM Yes I got my prescriptions filled and take them as instructed sorry my phone has been acting up [facility] 36on 05-12-2024 36 [facility] 36 Please get the patie nt scheduled for a hospital follow-up and asked the transition of care questions thank you [facility] 36 Kong Rasheed , Maria De Jesus was recently discharged from the hospital [facility] on 05/10/2024. Sending to you for CAROL follow up appointment direction. [facility] Nursing Noteon 05-10-2024 Nursing Note Escorted off unit [facility] Nursing Note Called for krystina chamberlain on way. Given survey and belongings. to be here in 20. [facility] Nursing Note [facility] Nursing Note Asking to be dischar jennifer, stated needs to go home today. [facility] will call IB himself. Discussed with Dr Thrasher, and he will discharge. [facility] Nursing Note [facility]ed [facility], what his plans are for super bowl, IOP. 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 States he and plan on doing more together for health, walks etc. Discussed leisure activity. [facility] Nursing Note Pt up independently, visualized on unit. Pt cooperative with assessment and compliant with medication [facility] 30on 05-09-2024 30 [facility] Nursing Noteon 05-09-2024 Nursing Note Patient is up and [facility], withdrawn to room for majority of shift. Pt is cooperative and med compliant. Pt denies SI/HI/AVH. Pt encouraged to notify staff for any questions and concerns. [facility] Progress Noteon 05-09-2024 Progress Note [facility] Progress Note Nutrition rescreen completed. Patient assigned a level 1. [facility] Progress Note [facility] [id number] 05-08-2024 [id number] [facility] CARBOHYDRATE DEFICIENT TRANS FERRINon 05-08-2024 CARBOHYDRATE DEFICIENT TRANSFERRIN 6.8 % High <1.4 [facility] Comment on above: Result Comment: Norm al:0-1.3%Inconclusive: 1.4-1.6%Elevated: greater than or equal to 1.7%Performed via Capillary Electrophoresis Performed By: #### L [id number] ####Underwriting Internship: CECI DUPREE ([id number])[address] ED Nursing Noteon 05-08-2024 ED Nursing Note Report to Evelyn Watts at [facility] on 4E [facility] ED Nursing Note Report to [facility] a t bedside. Vitals taken. Protective at bedside for final wanding. Belongings, detox rules and paperwork sent with patient/EMS [facility] Nursing Noteon 05-08-2024 Nursing Note [facility] Nursing Note Medication rec. Done with Jace at [facility] at 1200. [facility] Nursing Note Patient received Ishan otine Lozenge PRN as per orders at 0850. [facility] Nursing Note [facility] CBC (HEMOGRAM)on 05-07-2024 Erythrocyte distribution width (RBC) [Ratio] 13.4 % Normal 11.5-15.0 [facility] Comment on above: Performed By: #### L [id number] ####Underwriting Internship: REINIER ZHU ([id number])[facility] ([facility])[address] [place] [address] Hematocrit (Bld) [Volume fraction] 46.7 % Normal 40.0-52.0 [facility] Comment on above: Performed By: #### L [id number] ####Underwriting Internship: REINIER ZHU ([id number])[facility] ([facility])[address] [place] [address] Hemoglobin (Bld) [Mass/Vol] 16.1 g/dL Normal 13.0-18.0 [facility] Comment on above: Performed By: #### L [id number] ####Underwriting Internship: REINIER ZHU ([id number])[facility] ([facility])[address] MCH (RBC) [Entitic mass] 32.7 pg Normal 26.0-34.0 [facility] Comment on above: Performed By: #### L [id number] ####Underwriting Internship: REINIER ZHU ([id number])[facility] ([facility])[address] MCHC 34.5 % Normal 30.5-36.0 [facility] Comment on above: Performed By: #### L [id number] ####Underwriting Internship: REINIER ZHU ([id number])[facility] ([facility])[address] MCV (RBC) [Entitic vol] 94.7 fL Normal 77.0-99.0 [facility] Comment on above: Performed By: #### L [id number] ####Underwriting Internship: REINIER ZHU ([id number])[facility] ([facility])[address] Platelet mean volume (Bld) [Entitic vol] 8.8 fL Low 9.0-12.7 [facility] Comment on above: Performed By: #### L [id number] ####Underwriting Internship: REINIER ZHU ([id number])[facility] (SB[facility])[address] Platelets (Bld) [#/Vol] 228 10*3/uL Normal 140-440 [facility] Comment on above: Performed By: #### L [id number] ####Underwriting Internship: REINIER ZHU ([id number])[facility] ([facility])[address] RBC (Bld) [#/Vol] 4.93 10*6/uL Normal 4.40-5.90 [facility] Comment on above: Performed By: #### L [id number] ####Underwriting Internship: REINIER ZHU ([id number])[facility] (SBHLAB)[address] WBC (Bld) [#/Vol] 5.7 10*3/uL Normal 3.6-10.7 [facility] Comment on above: Performed By: #### L [id number] ####Underwriting Internship: REINIER ZHU ([id number])[facility] (SBHLAB)[address] CBC panel Auto (Bld)on 05-07 Erythrocyte distribution width (RBC) [Ratio] 13.4 % 11.5 - 15.0 % [facility] Hematocrit (Bld) [Volume fraction] 46.7 % 40.0 - 52.0 % [facility] Hemoglobin (Bld) [Mass/Vol] 16.1 g/dL 13.0 - 18.0 g/dL [facility] Interpretation and review of laboratory results Abnormal [facility] MCH (RBC) [Entitic mass] 32.7 pg 26.0 - 34.0 pg [facility] MCHC (RBC) [Mass/Vol] 34.5 % 30.5 - 36.0 % [facility] MCV (RBC) [Entitic vol] 94.7 fL 77.0 - 99.0 fL [facility] Platelet mean volume (Bld) [Entitic vol] 8.8 fL Low 9.0 - 12.7 fL [facility] Platelets (Bld) [#/Vol] 228 10*3/uL 140 - 440 10*3/uL [facility] RBC (Bld) [#/Vol] 4.93 10*6/uL 4.40 - 5.90 10*6/uL [facility] WBC (Bld) [#/Vol] 5.7 10*3/uL 3.6 - 10.7 10*3/uL [facility] COMPREHENSIVE METABOLIC PANE Arnulfo 05-07-2024 Albumin [Mass/Vol] 4.0 g/dL Normal 3.5-5.0 [facility] Comment on above: Performed By: #### Jose Carlos LAWS, LAB17, LAB46 ####Underwriting Internship: REINIER ZHU ([id number])[facility] ([facility])[address] ALP [Catalytic activity/Vol] 98 U/L Normal 40-150 [facility] Comment on above: Performed By: #### Jose Carlos LAWS, LAB17, LAB46 ####Underwriting Internship: REINIER ZHU ([id number])[facility] ([facility])[address] ALT [Catalytic activity/Vol] 105 U/L High <40 [facility] Comment on above: Performed By: #### Jose Carlos LAWS, LAB17, LAB46 ####Underwriting Internship: REINIER ZHU ([id number])[facility] ([facility])[address] Anion gap [Moles/Vol] 15 mmol/L High 3-13 [facility] Comment on above: Performed By: #### Jose Carlos LAWS, LAB17, LAB46 ####Underwriting Internship: REINIER ZHU ([id number])[facility] ([facility])[address] AST [Catalytic activity/Vol] 99 U/L High <34 [facility] Comment on above: Performed By: #### Jose Carlos LAWS, LAB17, LAB46 ####Underwriting Internship: REINIER ZHU ([id number])[facility] (SB[facility])[address] [place] [address] [place] Bilirubin [Mass/Vol] 0.4 mg/dL Normal <1.2 [facility] Comment on above: Performed By: #### Jose Carlos LAWS, LAB17, LAB46 ####Underwriting Internship: REINIER ZHU ([id number])[facility] ([facility])[address] [place] [address] [place] Calcium [Mass/Vol] 9.1 mg/dL Normal 8.4-10.2 [facility] Comment on above: Performed By: #### Jose Carlos LAWS, LAB17, LAB46 ####Underwriting Internship: REINIER ZHU ([id number])[facility]N (SBHLAB)[address] Chloride [Moles/Vol] 96 mmol/L Low 98-107 [facility] Comment on above: Performed By: #### Jose Carlos LAWS, LAB17, LAB46 ####Underwriting Internship: REINIER ZHU ([id number])[facility]ZCIBOL[facility]ITAL[facility] (SBHLAB)[address] CO2 [Moles/Vol] 26 mmol/L Normal 22-29 [facility] Comment on above: Performed By: #### Jose Carlos LAWS, LAB17, LAB46 ####Underwriting Internship: REINIER ZHU ([id number])[facility] (SB[facility])[address] Creatinine [Mass/Vol] 0.73 mg/dL Normal 0.72-1.25 [facility] Comment on above: Performed By: #### Jose Carlos LAWS, LAB17, LAB46 ####Underwriting Internship: REINIER ZHU ([id number])[facility] [place] [facility] GLOMERULAR FILTRATION RATE ML/MIN/1.73 SQ M.PREDICTED >90.0 Normal >60.0 [facility] Comment on above: Result Comment: Calc ulation based on the Chronic Kidney Disease Epidemiology Collaboration (CKD-EPI) equation refit without adjustment for race Performed By: #### Jose Carlos LAWS, LAB17, LAB46 ####Underwriting Internship: REINIER ZHU ([id number])[facility] (SBHLAB)[address] [place] [address] [place] Glucose [Mass/Vol] 92 mg/dL Normal 74-100 [facility] Comment on above: Performed By: #### Jose Carlos LAWS, LAB17, LAB46 ####Underwriting Internship: REINIER ZHU ([id number])[facility] (SBHLAB)[address] Potassium [Moles/Vol] 4.1 mmol/L Normal 3.5-5.1 [facility] Comment on above: Result Comment: [facility] potassium values may be up to 0.5 mmol/L lower than serum values. Performed By: #### L AB103, LAB17, LAB46 ####Underwriting Internship: REINIER ZHU ([id number])[facility] (SBHLAB)[address] Protein [Mass/Vol] 7.2 g/dL Normal 6.4-8.3 [facility] Comment on above: Performed By: #### Jose Carlos SHORE103, LAB17, LAB46 ####Underwriting Internship: REINIER ZHU ([id number])[facility] (SBHLAB)[address] Sodium [Moles/Vol] 137 mmol/L Normal 136-145 [facility] Comment on above: Performed By: #### Jose Carlos AB103, LAB17, LAB46 ####Underwriting Internship: REINIER ZHU ([id number])[facility] (SBHLAB)[address] Urea nitrogen [Mass/Vol] 3 mg/dL Low 9-23 [facility] Comment on above: Performed By: #### L AB103, LAB17, LAB46 ####Underwriting Internship: REINIER ZHU ([id number])[facility] (SBHLAB)[address] Comprehensive metabolic 1998 panelon 05-07-2024 Albumin [Mass/Vol] 4 g/dL 3.5 - 5.0 g/dL [facility] ALP [Catalytic activity/Vol] 98 U/L 40 - 150 U/L [facility] ALT [Catalytic activity/Vol] 105 U/L High NINF - 40 U/L [facility] Anion gap [Moles/Vol] 15 mmol/L High 3 - 13 mmol/L [facility] AST [Catalytic activity/Vol] 99 U/L High NINF - 34 U/L [facility] Bilirubin [Mass/Vol] 0.4 mg/dL NINF - 1.2 mg/dL [facility] Calcium [Mass/Vol] 9.1 mg/dL 8.4 - 10. 2 mg/dL [facility] Chloride [Moles/Vol] 96 mmol/L Low 98 - 10 7 mmol/L [facility] CO2 [Moles/Vol] 26 mmol/L 22 - 29 mmol/L [facility] Creatinine [Mass/Vol] 0.73 mg/dL 0.72 - 1.25 mg/dL [facility] GFR/1.73 sq M.predicted (S/P/Bld) [Vol rate/Area] - PINF [facility] Comment on above: Calculation based on the Chronic Kidney Disease Epidemiology Collaboration (CKD-EPI) equation refit without adjustment for race Glucose [Mass/Vol] 92 mg/dL 74 - 100 mg/dL [facility] Interpretation and review of laboratory results Abnormal [facility] Potassium [Moles/Vol] 4.1 mmol/L 3.5 - 5.1 mmol/L [facility] Comment on above: Plasma potassium juan ues may be up to 0.5 mmol/L lower than serum values. Protein [Mass/Vol] 7.2 g/dL 6.4 - 8.3 g/dL [facility] Sodium [Moles/Vol] 137 mmol/L 136 - 145 mmol/L [facility] Urea nitrogen [Mass/Vol] 3 mg/dL Low 9 - 23 mg/dL [facility] DRUGS OF ABUSEon 05-07-2024 AMPHETAMINE SCREEN Negative Normal [facility] Comment on above: Performed By: #### L [id number] ####Underwriting Internship: REINIER ZHU ([id number])[facility] (SB[facility])[address] [place] [address] BARBITURATES SCREEN Negative Normal [facility] Comment on above: Performed By: #### L [id number] ####Underwriting Internship: REINIER ZHU ([id number])[facility] ([facility])[address] [place] [address] BENZODIAZEPINE SCREEN Negative Normal [facility] Comment on above: Performed By: #### L [id number] ####Underwriting Internship: REINIER ZHU ([id number])[facility] (SBHLAB)[address] COCAINE METAB. SCREEN Negative Normal [facility] Comment on above: Performed By: #### L [id number] ####Underwriting Internship: REINIER ZHU ([id number])[facility] FENTANYL SCREEN, UR QUAL Negative Normal [facility] Comment on above: Result Comment: ORDE R COMMENTS:The expected value for all of the drugs listed above is Negative.The following drugs or drug groups have been screened for by Immunoassay at the following thresholds:Amphetamine class (1000 ng/mL)Barbiturates (200 ng/mL)Benzodiazepines (200 ng/mL)Cocaine (300 ng/mL)Methadone (300 ng/mL)Opiates (300 ng/mL)Oxycodone (100 ng/mL)PCP (25 ng/mL)Fentanyl (1.0 ng/ml)NOTE: These results are for medical treatment only. Analysis performed using non-forensic procedures. POSITIVE results are NOT confirmed by a more specificalternative method unless requested. If confirmation is needed, request confirmation under separate order. Performed By: #### L [id number] ####Underwriting Internship: REINIER ZHU ([id number])[facility] METHADONE SCREEN Negative Normal [facility] Comment on above: Performed By: #### L [id number] ####Underwriting Internship: REINIER ZHU ([id number])[facility] (HLAB)[address] OPIATES SCREEN Negative Normal [facility] Comment on above: Performed By: #### L [id number] ####Underwriting Internship: REINIER ZHU ([id number])[facility] (HL[facility])[address] OXYCODONE SCREEN Negative Normal [facility] Comment on above: Performed By: #### L [id number] ####Underwriting Internship: REINIER ZHU ([id number])[facility] ([facility])[address] PHENCYCLIDINE SCREEN Negative Normal [facility] Comment on above: Performed By: #### L [id number] ####Underwriting Internship: REINIER ZHU ([id number])[facility] ED Nursing Noteon 05-07-2024 ED Nursing Note Security at bedside for a belongings check Normal [facility] ED Nursing Note Normal [facility] ED Nursing Note [facility] pt. Normal [facility] ED Provider Noteon ED Provider Note Normal [facility] ETHANOLon 05-07-2024 ETHANOL IN SER/PLAS 351 mg/dL Critically high <10 [facility] Comment on above: Result Comment: ORDE R COMMENTS: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NOTE: This result is for medical treatment only. Analysis performed using non-forensic procedures. Performed By: #### L AB103, LAB17, LAB46 ####Underwriting Internship: REINIER ZHU ([id number])[facility] [place] [address] Ethanol (Bld) [Mass/Vol]Orde red By: Johnathan Giron on 05-07-2024 Ethanol [Mass/Vol] 351 mg/dL Critically high NINF - 10 mg/dL [facility] Interpretation and review of laboratory results Abnormal [facility] NIGHTCLUB MANAGER depression is se en >100 mg/dL. NOTE: This result is for medical treatment only. Analysis performed using non-forensic procedures. [facility] Laboratory - Chemistry and C hemistry - challengeon 05-07-2024 Magnesium [Mass/Vol] 2 mg/dL 1.6 - 2 .6 mg/dL [facility] Laboratory - Drug toxicology on 05-07-2024 Amphetamines Screen method >1000 ng/mL Ql (U) Negative [facility] Barbiturates Screen method >200 ng/mL Ql (U) Negative [facility] Benzodiazepines Ql (U) Negative [facility] Methadone Screen Ql (U) Negative [facility] Opiates Screen Ql (U) Negative [facility] oxyCODONE Ql (U) Negative [facility] Phencyclidine Ql (U) Negative [facility] Laboratory - Microbiology an d Antimicrobial susceptibilityOrdered By: Jacqueline Smith on 05-07-2024 SARS-CoV-2 (COVID-19) Ag IA.rapid Ql (Resp) Negative Negative [facility] Comment on above: A negative result do es not rule out the possibility of SARS-CoV-2 infection. NAAT-based methods should be considered for symptomatic patients presenting greater than seven days after onset of symptoms. Method: Lateral flow immunoassay. Fact sheets for healthcare providers and patients can be found at the following sites: https://www.fda.gov/media/548319/download https://www.fda.gov/media/019630/download MAGNESIUMon 05-07-2024 Magnesium [Mass/Vol] 2.0 mg/dL Normal 1.6-2.6 [facility] Comment on above: Result Comment: GEORGIA Lagunas COMMENTS:Higher values can be expected in females during menses. Performed By: #### L AB103, LAB17, LAB46 ####Underwriting Internship: REINIER ZHU ([id number])[facility] ([facility])[address] [place] [address] Magnesium [Mass/Vol]on 05-07 Interpretation and review of laboratory results Normal [facility] Higher values can be expected in females during menses. [facility] No Panel Informationon 05-07 COCAINE METAB. SCREEN Negative [facility] FENTANYL SCREEN, UR QUAL Negative [facility] The expected value f or all of the drugs listed above is Negative. The following drugs or drug groups have been screened for by Immunoassay at the following thresholds: Amphetamine class (1000 ng/mL) Barbiturates (200 ng/mL) Benzodiazepines (200 ng/mL) Cocaine (300 ng/mL) Methadone (300 ng/mL) Opiates (300 ng/mL) Oxycodone (100 ng/mL) PCP (25 ng/mL) Fentanyl (1.0 ng/ml) NOTE: These results are for medical treatment only. Analysis performed using non-forensic procedures. POSITIVE results are NOT confirmed by a more specific alternative method unless requested. If confirmation is needed, request confirmation under separate order. [facility] Progress Noteon 05-07-2024 Progress Note Normal [facility] SARS-COV-2 ANTIGENon 025 SARS-COV-2 ANTIGEN Normal [facility] Comment on above: Performed By: #### L [id number] ####Underwriting Internship: REINIER ZHU ([id number])[facility] [place] [address] SARS-CoV-2 (COVID-19) Ag IA. rapid Ql (Resp)Ordered By: Jacqueline Smith on 05-07-2024 Interpretation and review of laboratory results Normal [facility] 36on 04-27-2024 36 Normal [facility] 36 Schedule a hospital follow-up Normal [facility] 30on 04-12-2024 30 Normal [facility] Progress Noteon 04-12-2024 Progress Note Normal [facility] 30on 04-11-2024 30 Normal [facility] 30 Normal [facility] CBC W Auto Differential pane l (Bld)on 04-11-2024 Basophils (Bld) [#/Vol] 0 10*3/uL 0.0 - 0.2 10*3/uL [facility] Basophils/100 WBC (Bld) 0.9 % 0.0 - 2.0 % [facility] Eosinophils (Bld) [#/Vol] 0.1 10*3/uL 0.0 - 0.5 10*3/uL [facility] Eosinophils/100 WBC (Bld) 1.9 % 0.0 - 6.0 % [facility] Erythrocyte distribution width (RBC) [Ratio] 12.7 % 11.5 - 15.0 % [facility] Hematocrit (Bld) [Volume fraction] 42.5 % 40.0 - 52.0 % [facility] Hemoglobin (Bld) [Mass/Vol] 14.6 g/dL 13.0 - 18.0 g/dL [facility] Immature granulocytes (Bld) [#/Vol] 0 10*3/uL NINF - 0.1 10*3/uL [facility] Immature granulocytes/100 WBC (Bld) 0.2 % 0.0 - 2.0 % [facility] Interpretation and review of laboratory results Abnormal [facility] Lymphocytes (Bld) [#/Vol] 0.8 10*3/uL Low 1.0 - 4.3 10*3/uL [facility] Lymphocytes/100 WBC (Bld) 19.7 % 15.0 - 45.0 % [facility] MCH (RBC) [Entitic mass] 33 pg 26.0 - 34.0 pg [facility] MCHC (RBC) [Mass/Vol] 34.4 % 30.5 - 36.0 % [facility] MCV (RBC) [Entitic vol] 95.9 fL 77.0 - 99.0 fL [facility] Monocytes (Bld) [#/Vol] 0.5 10*3/uL 0.0 - 0.9 10*3/uL [facility] Monocytes/100 WBC (Bld) 12.4 % 5.0 - 13.0 % [facility] Neutrophils (Bld) [#/Vol] 2.8 10*3/uL 1.8 - 7.5 10*3/uL [facility] Neutrophils/100 WBC (Bld) 64.9 % 38.0 - 82.0 % [facility] Nucleated RBC/100 WBC (Bld) [Ratio] 0 % [facility] Platelet mean volume (Bld) [Entitic vol] 9.2 fL 9.0 - 12.7 fL [facility] Platelets (Bld) [#/Vol] 180 10*3/uL 140 - 440 10*3/uL [facility] RBC (Bld) [#/Vol] 4.43 10*6/uL 4.40 - 5.90 10*6/uL [facility] WBC (Bld) [#/Vol] 4.3 10*3/uL 3.6 - 10.7 10*3/uL [facility] CBC WITH AUTO DIFFERENTIALon 04-11-2024 Basophils (Bld) [#/Vol] 0.0 10*3/uL Normal 0.0-0.2 [facility] Comment on above: Performed By: #### L [id number] ####Underwriting Internship: REINIER ZHU ([id number])[facility] ([facility])[address] [place] [address] Basophils/100 WBC (Bld) 0.9 % Normal 0.0-2.0 [facility] Comment on above: Performed By: #### L [id number] ####Underwriting Internship: REINIER ZHU ([id number])[facility] ([facility])[address] Eosinophils (Bld) [#/Vol] 0.1 10*3/uL Normal 0.0-0.5 [facility] Comment on above: Performed By: #### L [id number] ####Underwriting Internship: REINIER ZHU ([id number])[facility] ([facility])[address] Eosinophils/100 WBC (Bld) 1.9 % Normal 0.0-6.0 [facility] Comment on above: Performed By: #### L [id number] ####Underwriting Internship: REINIER ZHU ([id number])[facility] [place] [facility] [place] [address] Erythrocyte distribution width (RBC) [Ratio] 12.7 % Normal 11.5-15.0 [facility] Comment on above: Performed By: #### L [id number] ####Underwriting Internship: REINIER ZHU ([id number])[facility] [place] ([facility])[address] [place] [address] Hematocrit (Bld) [Volume fraction] 42.5 % Normal 40.0-52.0 [facility] Comment on above: Performed By: #### L [id number] ####Underwriting Internship: REINIER ZHU ([id number])[facility] [place] ([facility])[address] [place] [address] Hemoglobin (Bld) [Mass/Vol] 14.6 g/dL Normal 13.0-18.0 [facility] Comment on above: Performed By: #### L [id number] ####Underwriting Internship: REINIER ZHU ([id number])[facility] [place] [address] IMMATURE GRANS % 0.2 % Normal 0.0-2.0 [facility] Comment on above: Performed By: #### L [id number] ####Underwriting Internship: REINIER OVIEDOBriseidaROGER ([id number])[facility])[address] IMMATURE GRANS ABSOLUTE 0.0 10*3/uL Normal <0.1 [facility] Comment on above: Performed By: #### L [id number] ####Underwriting Internship: REINIER MORINROGER ([id number])[facility] [place] [address] Lymphocytes (Bld) [#/Vol] 0.8 10*3/uL Low 1.0-4.3 [facility] Comment on above: Performed By: #### L [id number] ####Underwriting Internship: REINIER MORINROGER ([id number])[facility] ([facility])[address] [place] [address] Lymphocytes/100 WBC (Bld) 19.7 % Normal 15.0-45.0 [facility] Comment on above: Performed By: #### L [id number] ####Underwriting Internship: REINIER ZHU ([id number])[facility] ([facility])[address] [place] [address] MCH (RBC) [Entitic mass] 33.0 pg Normal 26.0-34.0 [facility] Comment on above: Performed By: #### L [id number] ####Underwriting Internship: REINIER MORINROGER ([id number])[facility] ([facility])[address] [place] [address] MCHC 34.4 % Normal 30.5-36.0 [facility] Comment on above: Performed By: #### L [id number] ####Underwriting Internship: REINIER ZHU ([id number])[facility] ([facility])[address] [place] [address] MCV (RBC) [Entitic vol] 95.9 fL Normal 77.0-99.0 [facility] Comment on above: Performed By: #### L [id number] ####Underwriting Internship: REINIER ZHU ([id number])[facility] ([facility])[address] Monocytes (Bld) [#/Vol] 0.5 10*3/uL Normal 0.0-0.9 [facility] Comment on above: Performed By: #### L [id number] ####Underwriting Internship: REINIER MORINROGER ([id number])[facility] ([facility])[address] Monocytes/100 WBC (Bld) 12.4 % Normal 5.0-13.0 [facility] Comment on above: Performed By: #### L [id number] ####Underwriting Internship: REINIER MORINROGER ([id number])[facility] ([facility])[address] NEUTROPHILS ABSOLUTE 2.8 10*3/uL Normal 1.8-7.5 [facility] Comment on above: Performed By: #### L [id number] ####Underwriting Internship: REINIER MORINROGER ([id number])[facility] ([facility])[address] Neutrophils/100 WBC (Bld) 64.9 % Normal 38.0-82.0 [facility] Comment on above: Performed By: #### L [id number] ####Underwriting Internship: REINIER ZHU ([id number])[facility] ([facility])[address] NRBC 0.0 /100 WBCs Normal 0.0-2.0 [facility] Comment on above: Performed By: #### L [id number] ####Underwriting Internship: REINIER ZHU ([id number])[facility] ([facility])[address] Platelet mean volume (Bld) [Entitic vol] 9.2 fL Normal 9.0-12.7 [facility] Comment on above: Performed By: #### L [id number] ####Underwriting Internship: REINIER ZHU ([id number])[facility] [place] ([facility])[address] Platelets (Bld) [#/Vol] 180 10*3/uL Normal 140-440 [facility] Comment on above: Performed By: #### L [id number] ####Underwriting Internship: REINIER ZHU ([id number])[facility] [place] ([facility])[address] RBC (Bld) [#/Vol] 4.43 10*6/uL Normal 4.40-5.90 [facility] Comment on above: Performed By: #### L [id number] ####Underwriting Internship: REINIER ZHU ([id number])[facility] ([facility])[address] WBC (Bld) [#/Vol] 4.3 10*3/uL Normal 3.6-10.7 [facility] Comment on above: Performed By: #### L [id number] ####Underwriting Internship: REINIER ZHU ([id number])[facility] [place] ([facility])[address] COMPREHENSIVE METABOLIC PANE Arnulfo 04-11-2024 Albumin [Mass/Vol] 3.5 g/dL Normal 3.5-5.0 [facility] Comment on above: Performed By: #### L AB113, LAB17, [id number] ####Underwriting Internship: REINIER ZHU ([id number])[facility] [place] ([facility])[address] ALP [Catalytic activity/Vol] 82 U/L Normal 40-150 [facility] Comment on above: Performed By: #### L AB113, LAB17, [id number] ####Underwriting Internship: REINIER ZHU ([id number])[facility] [place] ([facility])[address] ALT [Catalytic activity/Vol] 122 U/L High <40 [facility] Comment on above: Performed By: #### L ABKaleb, LAB17, [id number] ####Underwriting Internship: REINIER ZHU ([id number])[facility] [place] ([facility])[address] Anion gap [Moles/Vol] 10 mmol/L Normal 3-13 [facility] Comment on above: Performed By: #### L ABKaleb, LAB17, [id number] ####Underwriting Internship: REINIER ZHU ([id number])[facility] ([facility])[address] AST [Catalytic activity/Vol] 73 U/L High <34 [facility] Comment on above: Performed By: #### Jose Carlos ABKaleb, LAB17, [id number] ####Underwriting Internship: REINIER ZHU ([id number])[facility] ([facility])[address] Bilirubin [Mass/Vol] 0.7 mg/dL Normal <1.2 [facility] Comment on above: Performed By: #### Jose Carlos ABKaleb, LAB17, [id number] ####Underwriting Internship: REINIER ZHU ([id number])[facility] ([facility])[address] Calcium [Mass/Vol] 8.7 mg/dL Normal 8.4-10.2 [facility] Comment on above: Performed By: #### L ABKaleb, LAB17, [id number] ####Underwriting Internship: REINIER ZHU ([id number])[facility] [place] ([facility])[address] Chloride [Moles/Vol] 100 mmol/L Normal 98-107 [facility] Comment on above: Performed By: #### L ABKaleb, LAB17, [id number] ####Underwriting Internship: REINIER ZHU ([id number])[facility] ([facility])[address] [place] [address] [place] CO2 [Moles/Vol] 22 mmol/L Normal 22-29 [facility] Comment on above: Performed By: #### L AB113, LAB17, [id number] ####Underwriting Internship: REINIER ZHU ([id number])[facility] ([facility])[address] Creatinine [Mass/Vol] 0.66 mg/dL Low 0.72-1.25 [facility] Comment on above: Performed By: #### L AB113, LAB17, RHS586 ####Underwriting Internship: REINIER ZHU ([id number])[facility] ([facility])[address] GLOMERULAR FILTRATION RATE ML/MIN/1.73 SQ M.PREDICTED >90.0 Normal >60.0 [facility] Comment on above: Result Comment: Calc ulation based on the Chronic Kidney Disease Epidemiology Collaboration (CKD-EPI) equation refit without adjustment for race Performed By: #### L ABKaleb, LAB17, [id number] ####Underwriting Internship: REINIER ZHU ([id number])[facility] ([facility])[address] Glucose [Mass/Vol] 100 mg/dL Normal 74-100 [facility] Comment on above: Performed By: #### L AB113, LAB17, [id number] ####Underwriting Internship: REINIER ZHU ([id number])[facility] ([facility])[address] Potassium [Moles/Vol] 4.1 mmol/L Normal 3.5-5.1 [facility] Comment on above: Result Comment: [facility] potassium values may be up to 0.5 mmol/L lower than serum values. Performed By: #### L AB113, LAB17, [id number] ####Underwriting Internship: REINIER ZHU ([id number])[facility] [place] ([facility])[address] Protein [Mass/Vol] 6.3 g/dL Low 6.4-8.3 [facility] Comment on above: Performed By: #### L AB113, LAB17, [id number] ####Underwriting Internship: REINIER ZHU ([id number])[facility] [place] ([facility])[address] Sodium [Moles/Vol] 132 mmol/L Low 136-145 [facility] Comment on above: Performed By: #### L AB113, LAB17, [id number] ####Underwriting Internship: REINIER OVIEDOVINAYAK ([id number])[facility] ([facility])[address] Urea nitrogen [Mass/Vol] 6 mg/dL Low 9-23 [facility] Comment on above: Performed By: #### Jose Carlos AB113, LAB17, [id number] ####Underwriting Internship: REINIER MORINROGER ([id number])[facility] ([facility])[address] [place] [address] Comprehensive metabolic 1998 panelon 04-11-2024 Albumin [Mass/Vol] 3.5 g/dL 3.5 - 5.0 g/dL [facility] ALP [Catalytic activity/Vol] 82 U/L 40 - 150 U/L [facility] ALT [Catalytic activity/Vol] 122 U/L High [facility] - 40 U/L [facility] Anion gap [Moles/Vol] 10 mmol/L 3 - 13 mmol/L [facility] AST [Catalytic activity/Vol] 73 U/L High [facility] - 34 U/L [facility] Bilirubin [Mass/Vol] 0.7 mg/[facility]/dL [facility] Calcium [Mass/Vol] 8.7 mg/dL 8.4 - 10. 2 mg/dL [facility] Chloride [Moles/Vol] 100 mmol/L 98 - 10 7 mmol/L [facility] CO2 [Moles/Vol] 22 mmol/L 22 - 29 mmol/L [facility] Creatinine [Mass/Vol] 0.66 mg/dL Low 0.72 - 1.25 mg/dL [facility] GFR/1.73 sq M.predicted (S/P/Bld) [Vol rate/Area] - PINF [facility] Comment on above: Calculation based on the Chronic Kidney Disease Epidemiology Collaboration (CKD-EPI) equation refit without adjustment for race Glucose [Mass/Vol] 100 mg/dL 74 - 100 mg/dL [facility] Interpretation and review of laboratory results Abnormal [facility] Potassium [Moles/Vol] 4.1 mmol/L 3.5 - 5.1 mmol/L [facility] Comment on above: Plasma potassium juan ues may be up to 0.5 mmol/L lower than serum values. Protein [Mass/Vol] 6.3 g/dL Low 6.4 - 8.3 g/dL [facility] Sodium [Moles/Vol] 132 mmol/L Low 136 - 145 mmol/L [facility] Urea nitrogen [Mass/Vol] 6 mg/dL Low 9 - 23 mg/dL [facility] Laboratory - Chemistry and C hemistry - challengeon 04-11-2024 Magnesium [Mass/Vol] 1.8 mg/dL 1.6 - 2 .6 mg/dL [facility] MAGNESIUMon 04-11-2024 Magnesium [Mass/Vol] 1.8 mg/dL Normal 1.6-2.6 [facility] Comment on above: Result Comment: GE[place] Lagunas COMMENTS:Higher values can be expected in females during menses. Performed By: #### L AB113, LAB17, [id number] ####Underwriting Internship: REINIER ZHU ([id number])[facility] ([facility])[address] [place] [address] Magnesium [Mass/Vol]on 04-11 Higher values can be expected in females during menses. [facility] No Panel Informationon 04-11 Interpretation and review of laboratory results Normal [facility] PHOSPHORUSon 04-11-2024 Phosphate [Mass/Vol] 3.7 mg/dL Normal 2.3-4.7 [facility] Comment on above: Performed By: #### L AB113, LAB17, [id number] ####Underwriting Internship: REINIER ZHU ([id number])[facility] ([facility])[address] [place] [address] Phosphate [Moles/Vol]on 04-01 Phosphate [Mass/Vol] 3.7 mg/dL 2.3 - 4 .7 mg/dL [facility] Progress Noteon 04-11-2024 Progress Note Normal [facility] Progress Note Normal [facility] Progress Note Normal [facility] Consulton 04-10-2024 Consult Normal [facility] ED Nursing Noteon 04-10-2024 ED Nursing Note Pt sleeping Normal [facility] ED Nursing Note Pt sleeping Normal [facility] ED Nursing Note Pt sleeping Normal [facility] ED Nursing Note Pt sleeping Normal [facility] Laboratory - Drug toxicology Ordered By: Lisa News on 04-10-2024 Amphetamines Ql (U) Negative Negative [facility] Barbiturates screen method Nom (U) Negative Negative [facility] Benzodiazepines screen method Nom (U) Negative Negative [facility] Cocaine Ql (U) Negative Negative [facility] Methadone Ql (U) Negative Negative [facility] Opiates Screen Ql (U) Negative Negative [facility] No Panel InformationOrdered By: Lisa Urbas on 04-10-2024 OXYCODONE/OXYMORPHONE Negative Negative [facility] PCP Negative Negative [facility] The expected value for the drugs listed above is Negative. The following drugs or drug groups have been screened for by Immunoassay at the following thresholds: Amphetamine class(1000 ng/mL) Barbiturates(200 ng/mL Benzodiazepines(200 ng/mL) Cocaine(300 ng/mL) Methadone(300 ng/mL) Opiates(300 ng/mL) Oxycodone(100 ng/mL) PCP(25 ng/mL) POSITIVE results are NOT confirmed by a more specific alternative method unless requested. If confirmation is needed, request confirmation under separate order. NOTE: These results are for medical treatment only. Analysis performed using non-forensic procedures. [facility] Nursing Noteon 04-10-2024 Nursing Note Pt refusing to let R N put side rail of ED stretcher up. Pt educated on seizure precautions and dangers with withdrawls. Pt still refusing. Will continue to monitor. Normal [facility] CBC W Auto Differential pane l (Bld)on 04-09-2024 Basophils (Bld) [#/Vol] 0.1 10*3/uL 0.0 - 0.2 10*3/uL [facility] Basophils/100 WBC (Bld) 1.4 % 0.0 - 2.0 % [facility] Eosinophils (Bld) [#/Vol] 0.1 10*3/uL 0.0 - 0.5 10*3/uL [facility] Eosinophils/100 WBC (Bld) 2.3 % 0.0 - 6.0 % [facility] Erythrocyte distribution width (RBC) [Ratio] 13 % 11.5 - 15.0 % [facility] Hematocrit (Bld) [Volume fraction] 46.6 % 40.0 - 52.0 % [facility] Hemoglobin (Bld) [Mass/Vol] 16.2 g/dL 13.0 - 18.0 g/dL [facility] Immature granulocytes (Bld) [#/Vol] 0 10*3/uL NINF - 0.1 10*3/uL [facility] Immature granulocytes/100 WBC (Bld) 0.2 % 0.0 - 2.0 % [facility] Interpretation and review of laboratory results Abnormal [facility] Lymphocytes (Bld) [#/Vol] 1.7 10*3/uL 1.0 - 4.3 10*3/uL [facility] Lymphocytes/100 WBC (Bld) 38.4 % 15.0 - 45.0 % [facility] MCH (RBC) [Entitic mass] 33.1 pg 26.0 - 34.0 pg [facility] MCHC (RBC) [Mass/Vol] 34.8 % 30.5 - 36.0 % [facility] MCV (RBC) [Entitic vol] 95.3 fL 77.0 - 99.0 fL [facility] Monocytes (Bld) [#/Vol] 0.6 10*3/uL 0.0 - 0.9 10*3/uL [facility] Monocytes/100 WBC (Bld) 13.9 % High 5.0 - 13.0 % [facility] Neutrophils (Bld) [#/Vol] 1.9 10*3/uL 1.8 - 7.5 10*3/uL [facility] Neutrophils/100 WBC (Bld) 43.8 % 38.0 - 82.0 % [facility] Nucleated RBC/100 WBC (Bld) [Ratio] 0 % [facility] Platelet mean volume (Bld) [Entitic vol] 8.8 fL Low 9.0 - 12.7 fL [facility] Platelets (Bld) [#/Vol] 214 10*3/uL 140 - 440 10*3/uL [facility] RBC (Bld) [#/Vol] 4.89 10*6/uL 4.40 - 5.90 10*6/uL [facility] WBC (Bld) [#/Vol] 4.4 10*3/uL 3.6 - 10.7 10*3/uL [facility] CBC WITH AUTO DIFFERENTIALon 04-09-2024 Basophils (Bld) [#/Vol] 0.1 10*3/uL Normal 0.0-0.2 [facility] Comment on above: Performed By: #### L [id number] ####Underwriting Internship: REINIER ZHU ([id number])[facility] [place] ([facility])[address] [place] [address] Basophils/100 WBC (Bld) 1.4 % Normal 0.0-2.0 [facility] Comment on above: Performed By: #### L [id number] ####Underwriting Internship: REINIER ZHU ([id number])[facility] [place] ([facility])[address] [place] [address] Eosinophils (Bld) [#/Vol] 0.1 10*3/uL Normal 0.0-0.5 [facility] Comment on above: Performed By: #### L [id number] ####Underwriting Internship: REINIER ZHU ([id number])[facility] [place] ([facility])[address] [place] [address] Eosinophils/100 WBC (Bld) 2.3 % Normal 0.0-6.0 [facility] Comment on above: Performed By: #### L [id number] ####Underwriting Internship: REINIER ZHU ([id number])[facility] [place] ([facility])[address] [place] [address] Erythrocyte distribution width (RBC) [Ratio] 13.0 % Normal 11.5-15.0 [facility] Comment on above: Performed By: #### L [id number] ####Underwriting Internship: REINIER ZHU ([id number])[facility] (SBHLAB)[address] Hematocrit (Bld) [Volume fraction] 46.6 % Normal 40.0-52.0 [facility] Comment on above: Performed By: #### L [id number] ####Underwriting Internship: REINIER ZHU ([id number])[facility] ([facility] Hemoglobin (Bld) [Mass/Vol] 16.2 g/dL Normal 13.0-18.0 [facility] Comment on above: Performed By: #### L [id number] ####Underwriting Internship: REINIER ZHU ([id number])[facility] [place] ([facility])[address] IMMATURE GRANS % 0.2 % Normal 0.0-2.0 [facility] Comment on above: Performed By: #### L [id number] ####Underwriting Internship: REINIER ZHU ([id number])[facility] ([facility] [place] [address] IMMATURE GRANS ABSOLUTE 0.0 10*3/uL Normal <0.1 [facility] Comment on above: Performed By: #### L [id number] ####Underwriting Internship: REINIER ZHU ([id number])[facility] ([facility] [place] [address] Lymphocytes (Bld) [#/Vol] 1.7 10*3/uL Normal 1.0-4.3 [facility] Comment on above: Performed By: #### L [id number] ####Underwriting Internship: REINIER ZHU ([id number])[facility] [place] ([facility])[address] [place] [address] [place] Lymphocytes/100 WBC (Bld) 38.4 % Normal 15.0-45.0 [facility] Comment on above: Performed By: #### L [id number] ####Underwriting Internship: REINIER ZHU ([id number])[facility] ([facility])[address] MCH (RBC) [Entitic mass] 33.1 pg Normal 26.0-34.0 [facility] Comment on above: Performed By: #### L [id number] ####Underwriting Internship: REINIER ZHU ([id number])[facility] (SBHLAB)[address] MCHC 34.8 % Normal 30.5-36.0 [facility] Comment on above: Performed By: #### L [id number] ####Underwriting Internship: REINIER ZHU ([id number])[facility] [place] ([facility])[address] MCV (RBC) [Entitic vol] 95.3 fL Normal 77.0-99.0 [facility] Comment on above: Performed By: #### L [id number] ####Underwriting Internship: REINIER ZHU ([id number])[facility] [place] ([facility])[address] Monocytes (Bld) [#/Vol] 0.6 10*3/uL Normal 0.0-0.9 [facility] Comment on above: Performed By: #### L [id number] ####Underwriting Internship: REINIER ZHU ([id number])[facility] [place] ([facility])[address] Monocytes/100 WBC (Bld) 13.9 % High 5.0-13.0 [facility] Comment on above: Performed By: #### L [id number] ####Underwriting Internship: REINIER ZHU ([id number])[facility] [place] ([facility])[address] NEUTROPHILS ABSOLUTE 1.9 10*3/uL Normal 1.8-7.5 [facility] Comment on above: Performed By: #### L [id number] ####Underwriting Internship: REINIER ZHU ([id number])[facility] [place] ([facility])[address] Neutrophils/100 WBC (Bld) 43.8 % Normal 38.0-82.0 [facility] Comment on above: Performed By: #### L [id number] ####Underwriting Internship: REINIER ZHU ([id number])[facility] (SBHLAB)[address] NRBC 0.0 /100 WBCs Normal 0.0-2.0 [facility] Comment on above: Performed By: #### L [id number] ####Underwriting Internship: REINIER ZHU ([id number])[facility] [place] ([facility])[address] Platelet mean volume (Bld) [Entitic vol] 8.8 fL Low 9.0-12.7 [facility] Comment on above: Performed By: #### L [id number] ####Underwriting Internship: REINIER ZHU ([id number])[facility] [place] ([facility])[address] [place] [address] [place] Platelets (Bld) [#/Vol] 214 10*3/uL Normal 140-440 [facility] Comment on above: Performed By: #### L [id number] ####Underwriting Internship: REINIER ZHU ([id number])[facility] [place] ([facility])[address] [place] [address] [place] RBC (Bld) [#/Vol] 4.89 10*6/uL Normal 4.40-5.90 [facility] Comment on above: Performed By: #### L [id number] ####Underwriting Internship: REINIER ZHU ([id number])[facility] [place] ([facility])[address] [place] [address] [place] WBC (Bld) [#/Vol] 4.4 10*3/uL Normal 3.6-10.7 [facility] Comment on above: Performed By: #### L [id number] ####Underwriting Internship: REINIER ZHU ([id number])[facility] (SB[facility])[address] COMPLETE URINALYSISon 2024 BILIRUBIN, TOTAL PRESENCE IN URINE Negative Normal Negative [facility] Comment on above: Performed By: #### L [id number] ####Underwriting Internship: REINIER ZHU ([id number])[facility] (SBHLAB)[address] Clarity (U) Clear Normal Clear [facility] Comment on above: Performed By: #### L [id number] ####Underwriting Internship: REINIER ZHU ([id number])[facility] (HLAB)[address] Color (U) Light Yellow Normal Lt. Yellow [facility] Comment on above: Performed By: #### L [id number] ####Underwriting Internship: REINIER ZHU ([id number])[facility] ([facility])[address] GLUCOSE (MG/DL) IN URINE Normal Normal Normal (<70) [facility] Comment on above: Performed By: #### L [id number] ####Underwriting Internship: REINIER ZHU ([id number])[facility] HEMOGLOBIN PRESENCE IN URINE Negative Normal Negative [facility] Comment on above: Performed By: #### L [id number] ####Underwriting Internship: REINIER ZHU ([id number])[facility] Ketones Ql (U) Negative Normal Negative [facility] Comment on above: Performed By: #### L [id number] ####Underwriting Internship: REINIER ZHU ([id number])[facility] LEUKOCYTE ESTERASE PRESENCE IN URINE BY TEST STRIP Negative Normal Negative [facility] Comment on above: Performed By: #### L [id number] ####Underwriting Internship: REINIER ZHU ([id number])[facility] [place] (SBHLAB)[address] NITRITE PRESENCE IN URINE Negative Normal Negative [facility] Comment on above: Performed By: #### L [id number] ####Underwriting Internship: REINIER ZHU ([id number])[facility] [place] (SBHLAB)[address] pH (U) 5.5 [pH] Normal 5.0-8.0 [facility] Comment on above: Performed By: #### L [id number] ####Underwriting Internship: REINEIR ZHU ([id number])[facility] (SB[facility])[address] Protein (U) [Mass/Vol] Negative Normal Negative [facility] Comment on above: Performed By: #### L [id number] ####Underwriting Internship: REINIER ZHU ([id number])[facility] (HLAB)[address] Specific gravity (U) [Rel density] 1.010 Normal 1.005-1.03 0 [facility] Comment on above: Performed By: #### L [id number] ####Underwriting Internship: REINIER ZHU ([id number])[facility] [place] [facility] UROBILINOGEN (MG/DL) IN URINE Normal Normal Normal (0-1) [facility] Comment on above: Performed By: #### L [id number] ####Underwriting Internship: REINIER ZHU ([id number])[facility] (SB[facility])[address] COMPREHENSIVE METABOLIC PANE Arnulfo 04-09-2024 Albumin [Mass/Vol] 3.9 g/dL Normal 3.5-5.0 [facility] Comment on above: Performed By: #### L AB46, LAB99, LAB17, [id number] ####Underwriting Internship: REINIER ZHU ([id number])[facility] [place] (SBHLAB)[address] ALP [Catalytic activity/Vol] 94 U/L Normal 40-150 [facility] Comment on above: Performed By: #### L AB46, LAB99, LAB17, [id number] ####Underwriting Internship: REINIER ZHU ([id number])[facility] [place] (SB[facility])[address] [place] [address] [place] ALT [Catalytic activity/Vol] 189 U/L High <40 [facility] Comment on above: Performed By: #### L AB46, LAB99, LAB17, [id number] ####Underwriting Internship: REINIER ZHU ([id number])[facility] (SB[facility])[address] Anion gap [Moles/Vol] 11 mmol/L Normal 3-13 [facility] Comment on above: Performed By: #### L AB46, LAB99, LAB17, [id number] ####Underwriting Internship: REINIER ZHU ([id number])[facility] ([facility])[address] [place] [address] [place] AST [Catalytic activity/Vol] 136 U/L High <34 [facility] Comment on above: Performed By: #### L AB46, LAB99, LAB17, [id number] ####Underwriting Internship: REINIER ZHU ([id number])[facility] ([facility])[address] Bilirubin [Mass/Vol] 0.5 mg/dL Normal <1.2 [facility] Comment on above: Performed By: #### L AB46, LAB99, LAB17, [id number] ####Underwriting Internship: REINIER ZHU ([id number])[facility] ([facility])[address] Calcium [Mass/Vol] 8.9 mg/dL Normal 8.4-10.2 [facility] Comment on above: Performed By: #### L AB46, LAB99, LAB17, CRS448 ####Underwriting Internship: REINIER ZHU ([id number])[facility] (SBHLAB)[address] [place] [address] [place] Chloride [Moles/Vol] 99 mmol/L Normal 98-107 [facility] Comment on above: Performed By: #### L AB46, LAB99, LAB17, WXP049 ####Underwriting Internship: REINIER ZHU ([id number])[facility] (SBHLAB)[address] [place] [address] [place] CO2 [Moles/Vol] 25 mmol/L Normal 22-29 [facility] Comment on above: Performed By: #### L AB46, LAB99, LAB17, AXM366 ####Underwriting Internship: REINIER ZHU ([id number])[facility] (SBHLAB)[address] Creatinine [Mass/Vol] 0.65 mg/dL Low 0.72-1.25 [facility] Comment on above: Performed By: #### L AB46, LAB99, LAB17, HQC065 ####Underwriting Internship: REINIER ZHU ([id number])[facility] (SBHLAB)[address] GLOMERULAR FILTRATION RATE ML/MIN/1.73 SQ M.PREDICTED >90.0 Normal >60.0 [facility] Comment on above: Result Comment: Calc ulation based on the Chronic Kidney Disease Epidemiology Collaboration (CKD-EPI) equation refit without adjustment for race Performed By: #### L AB46, LAB99, LAB17, QNY180 ####Underwriting Internship: REINIER ZHU ([id number])[facility] (SBHLAB)[address] [place] [address] [place] Glucose [Mass/Vol] 91 mg/dL Normal 74-100 [facility] Comment on above: Performed By: #### L AB46, LAB99, LAB17, [id number] ####Underwriting Internship: REINIER ZHU ([id number])[facility] [place] (SBHLAB)[address] [place] [address] [place] Potassium [Moles/Vol] 4.4 mmol/L Normal 3.5-5.1 [facility] Comment on above: Result Comment: [facility] potassium values may be up to 0.5 mmol/L lower than serum values. Performed By: #### L AB46, LAB99, LAB17, [id number] ####Underwriting Internship: REINIER ZHU ([id number])[facility] ([facility])[address] Protein [Mass/Vol] 7.1 g/dL Normal 6.4-8.3 [facility] Comment on above: Performed By: #### L AB46, LAB99, LAB17, [id number] ####Underwriting Internship: REINIER ZHU ([id number])[facility] ([facility])[address] Sodium [Moles/Vol] 135 mmol/L Low 136-145 [facility] Comment on above: Performed By: #### L AB46, LAB99, LAB17, RUB796 ####Underwriting Internship: REINIER ZHU ([id number])[facility] (SBHLAB)[address] Urea nitrogen [Mass/Vol] 5 mg/dL Low 9-23 [facility] Comment on above: Performed By: #### L AB46, LAB99, LAB17, [id number] ####Underwriting Internship: REINIER ZHU ([id number])[facility] (SBHLAB)[address] Comprehensive metabolic 1998 panelon 04-09-2024 Albumin [Mass/Vol] 3.9 g/dL 3.5 - 5.0 g/dL [facility] ALP [Catalytic activity/Vol] 94 U/L 40 - 150 U/L [facility] ALT [Catalytic activity/Vol] 189 U/L High NINF - 40 U/L [facility] Anion gap [Moles/Vol] 11 mmol/L 3 - 13 mmol/L [facility] AST [Catalytic activity/Vol] 136 U/L High NINF - 34 U/L [facility] Bilirubin [Mass/Vol] 0.5 mg/dL NINF - 1.2 mg/dL [facility] Calcium [Mass/Vol] 8.9 mg/dL 8.4 - 10. 2 mg/dL [facility] Chloride [Moles/Vol] 99 mmol/L 98 - 10 7 mmol/L [facility] CO2 [Moles/Vol] 25 mmol/L 22 - 29 mmol/L [facility] Creatinine [Mass/Vol] 0.65 mg/dL Low 0.72 - 1.25 mg/dL [facility] GFR/1.73 sq M.predicted (S/P/Bld) [Vol rate/Area] - PINF [facility] Comment on above: Calculation based on the Chronic Kidney Disease Epidemiology Collaboration (CKD-EPI) equation refit without adjustment for race Glucose [Mass/Vol] 91 mg/dL 74 - 100 mg/dL [facility] Interpretation and review of laboratory results Abnormal [facility] Potassium [Moles/Vol] 4.4 mmol/L 3.5 - 5.1 mmol/L [facility] Comment on above: Plasma potassium juan ues may be up to 0.5 mmol/L lower than serum values. Protein [Mass/Vol] 7.1 g/dL 6.4 - 8.3 g/dL [facility] Sodium [Moles/Vol] 135 mmol/L Low 136 - 145 mmol/L [facility] Urea nitrogen [Mass/Vol] 5 mg/dL Low 9 - 23 mg/dL [facility] DRUGS OF ABUSEon 04-09-2024 AMPHETAMINE SCREEN Negative Normal [facility] Comment on above: Performed By: #### L [id number] ####Underwriting Internship: REINIER ZHU ([id number])[facility] (SBHLAB)[address] [place] [address] BARBITURATES SCREEN Negative Normal [facility] Comment on above: Performed By: #### L [id number] ####Underwriting Internship: REINIER ZHU ([id number])[facility] (SBHLAB)[address] [place] [address] BENZODIAZEPINE SCREEN Negative Normal [facility] Comment on above: Performed By: #### L [id number] ####Underwriting Internship: REINIER ZHU ([id number])[facility] ([facility])[address] COCAINE METAB. SCREEN Negative Normal [facility] Comment on above: Performed By: #### L [id number] ####Underwriting Internship: REINIER ZHU ([id number])[facility] (HLAB)[address] FENTANYL SCREEN, UR QUAL Negative Normal [facility] Comment on above: Result Comment: [place] R COMMENTS:The expected value for all of the drugs listed above is Negative.The following drugs or drug groups have been screened for by Immunoassay at the following thresholds:Amphetamine class (1000 ng/mL)Barbiturates (200 ng/mL)Benzodiazepines (200 ng/mL)Cocaine (300 ng/mL)Methadone (300 ng/mL)Opiates (300 ng/mL)Oxycodone (100 ng/mL)PCP (25 ng/mL)Fentanyl (1.0 ng/ml)NOTE: These results are for medical treatment only. Analysis performed using non-forensic procedures. POSITIVE results are NOT confirmed by a more specificalternative method unless requested. If confirmation is needed, request confirmation under separate order. Performed By: #### L [id number] ####Underwriting Internship: REINIER ZHU ([id number])[facility] (HLAB)[address] METHADONE SCREEN Negative Normal [facility] Comment on above: Performed By: #### L [id number] ####Underwriting Internship: REINIER ZHU ([id number])[facility] (HLAB)[address] OPIATES SCREEN Negative Normal [facility] Comment on above: Performed By: #### L [id number] ####Underwriting Internship: REINIER ZHU ([id number])[facility] (HLAB)[address] OXYCODONE SCREEN Negative Normal [facility] Comment on above: Performed By: #### L [id number] ####Underwriting Internship: REINIER ZHU ([id number])[facility] PHENCYCLIDINE SCREEN Negative Normal [facility] Comment on above: Performed By: #### L [id number] ####Underwriting Internship: REINIER ZHU ([id number])[facility] (SBHLAB)[address] ECG 12-LEADon 04-09-2024 ECG 12-LEAD IMPRESSION: Sinus rhythm Borderline prolonged QT interval No significant changes from prior EKG Electronically Signed On 04-09-2024 22:41:09 EST by Kolby Whiteside Normal [facility] ED Nursing Noteon 04-09-2024 ED Nursing Note Patient seeking deto x from ETOH. 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 Normal [facility] ED Provider Noteon ED Provider Note Normal [facility] ETHANOLon 04-09-2024 ETHANOL IN SER/PLAS 334 mg/dL Critically high <10 [facility] Comment on above: Result Comment: [place] R COMMENTS: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NOTE: This result is for medical treatment only. Analysis performed using non-forensic procedures. Performed By: #### L AB46, LAB99, LAB17, [id number] ####Underwriting Internship: REINIER ZHU ([id number])[facility] (SBHLAB)[address] Ethanol (Bld) [Mass/Vol]Orde red By: Johnathan Giron on 04-09-2024 Ethanol [Mass/Vol] 334 mg/dL Critically high NINF - 10 mg/dL [facility] Interpretation and review of laboratory results Abnormal [facility] NIGHTCLUB MANAGER depression is se en >100 mg/dL. NOTE: This result is for medical treatment only. Analysis performed using non-forensic procedures. [facility] LIPASEon 04-09-2024 Lipase [Catalytic activity/Vol] 44 U/L Normal <55 [facility] Comment on above: Performed By: #### L AB46, LAB99, LAB17, [id number] ####Underwriting Internship: REINIER ZHU ([id number])[facility] (SBHLAB)[address] Laboratory - Chemistry and C hemistry - challengeon 04-09-2024 Lipase [Catalytic activity/Vol] 44 U/L NINF - 55 U/L [facility] Magnesium [Mass/Vol] 2 mg/dL 1.6 - 2 .6 mg/dL [facility] Laboratory - Drug toxicology on 04-09-2024 Amphetamines Screen method >1000 ng/mL Ql (U) Negative [facility] Barbiturates Screen method >200 ng/mL Ql (U) Negative [facility] Benzodiazepines Ql (U) Negative [facility] Methadone Screen Ql (U) Negative [facility] Opiates Screen Ql (U) Negative [facility] oxyCODONE Ql (U) Negative [facility] Phencyclidine Ql (U) Negative [facility] Laboratory - Microbiology an d Antimicrobial susceptibilityOrdered By: Jacqueline Smith on 04-09-2024 SARS-CoV-2 (COVID-19) Ag IA.rapid Ql (Resp) Negative Negative [facility] Comment on above: A negative result do es not rule out the possibility of SARS-CoV-2 infection. NAAT-based methods should be considered for symptomatic patients presenting greater than seven days after onset of symptoms. Method: Lateral flow immunoassay. Fact sheets for healthcare providers and patients can be found at the following sites: https://www.fda.gov/media/233008/download https://www.fda.gov/media/807932/download MAGNESIUMon 04-09-2024 Magnesium [Mass/Vol] 2.0 mg/dL Normal 1.6-2.6 [facility] Comment on above: Result Comment: [place] COMMENTS:Higher values can be expected in females during menses. Performed By: #### L AB46, LAB99, LAB17, [id number] ####Underwriting Internship: REINIER ZHU ([id number])[facility] (SBHLAB)[address] Magnesium [Mass/Vol]on 04-09 Higher values can be expected in females during menses. [facility] No Panel Informationon 04-09 COCAINE METAB. SCREEN Negative [facility] FENTANYL SCREEN, UR QUAL Negative [facility] The expected value f or all of the drugs listed above is Negative. The following drugs or drug groups have been screened for by Immunoassay at the following thresholds: Amphetamine class (1000 ng/mL) Barbiturates (200 ng/mL) Benzodiazepines (200 ng/mL) Cocaine (300 ng/mL) Methadone (300 ng/mL) Opiates (300 ng/mL) Oxycodone (100 ng/mL) PCP (25 ng/mL) Fentanyl (1.0 ng/ml) NOTE: These results are for medical treatment only. Analysis performed using non-forensic procedures. POSITIVE results are NOT confirmed by a more specific alternative method unless requested. If confirmation is needed, request confirmation under separate order. [facility] P [place] 65 degrees [facility] VA Interval 162 ms [facility] QRS [place] 59 degrees [facility] QRSD Interval 96 ms [facility] QT Interval 409 ms [facility] QTC Interval 493 ms [facility] T Wave [place] 44 degrees [facility] Sinus rhythm Borderline prolonged QT interval No significant changes from prior EKG Electronically Signed On 04-09-2024 22:41:09 EST by Kolby Little DO - 04/10/2024 IMPRESSION: Sinus rhythm Borderline prolonged QT interval No significant changes from prior EKG Electronically Signed On 04-09-2024 22:41:09 EST by Kolby Whiteside [facility] Interpretation and review of laboratory results Normal [facility] SARS-COV-2 ANTIGENon 025 SARS-COV-2 ANTIGEN Normal [facility] Comment on above: Performed By: #### L [id number] ####Underwriting Internship: REINIER ZHU ([id number])[facility] ([facility])[address] [place] [address] SARS-CoV-2 (COVID-19) Ag IA. rapid Ql (Resp)Ordered By: Jacqueline Smith on 04-09-2024 Interpretation and review of laboratory results Normal [facility] UNCONFIRMED DRUG SCREENon Amphetamines Ql (U) Negative Normal Negative [facility] Comment on above: Performed By: #### L [id number] ####Underwriting Internship: CECI DUPREE ([id number])[facility] ([facility])[address] [place] [address] BARBITURATES Negative Normal Negative [facility] Comment on above: Performed By: #### L [id number] ####Underwriting Internship: CECI DUPREE ([id number])[facility] ([facility])[address] [place] [address] Benzodiazepines Ql (U) Negative Normal Negative [facility] Comment on above: Performed By: #### L [id number] ####Underwriting Internship: CECI DUPREE ([id number])[facility] ([facility])[address] [place] [address] Cocaine Ql (U) Negative Normal Negative [facility] Comment on above: Performed By: #### L [id number] ####Underwriting Internship: CECI DUPREE ([id number])[facility] ([facility])[address] [place] [address] Methadone Ql (U) Negative Normal Negative [facility] Comment on above: Performed By: #### L [id number] ####Underwriting Internship: CECI DUPREE ([id number])[facility] ([facility])[address] [place] [address] Opiates Ql (U) Negative Normal Negative [facility] Comment on above: Performed By: #### L [id number] ####Underwriting Internship: CECI DUPREE ([id number])[facility] ([facility])[address] [place] [address] OXYCODONE/OXYMORPHONE Negative Normal Negative [facility] Comment on above: Performed By: #### L [id number] ####Underwriting Internship: CECI DUPREE ([id number])[facility] ([facility])[address] [place] [address] PCP Negative Normal Negative [facility] Comment on above: Result Comment: ORDE R COMMENTS:The expected value for the drugs listed above is Negative.The following drugs or drug groups have been screened for by Immunoassay at the following thresholds:Amphetamine class(1000 ng/mL)Barbiturates(200 ng/mLBenzodiazepines(200 ng/mL)Cocaine(300 ng/mL)Methadone(300 ng/mL)Opiates(300 ng/mL)Oxycodone(100 ng/mL)PCP(25 ng/mL)POSITIVE results are NOT confirmed by a more specific alternative method unless requested. If confirmation is needed, request confirmation under separate order.NOTE: These results are for medical treatment only. Analysis performed using non-forensic procedures. Performed By: #### L [id number] ####Underwriting Internship: CECI DUPREE ([id number])[facility] ([facility])[address] [place] [address] Urinalysis complete panel (U )on 04-09-2024 Bilirubin Ql (U) Negative Negative mg/dL [facility] Clarity (U) Clear Clear [facility] Color (U) Light Yellow Lt. Yellow [facility] Glucose Ql (U) Normal Normal (<70) mg/dL [facility] Hemoglobin Ql (U) Negative Negative mg/dL [facility] Interpretation and review of laboratory results Normal [facility] Ketones (U) [Mass/Vol] Negative Negat shiv mg/dL [facility] Leukocyte esterase Test strip Ql (U) Negative Negative Estefani/uL [facility] Nitrite Ql (U) Negative Negative [facility] pH (U) 5.5 [pH] 5.0 - 8.0 pH [facility] Protein (U) [Mass/Vol] Negative Negat shiv mg/dL [facility] Specific gravity (U) [Rel density] 1.01 1.005 - 1.030 [facility] Urobilinogen (U) [Mass/Vol] Normal Normal (0-1) mg/dL [facility] Vital signson 04-09-2024 Heart rate 87 /min bpm [facility] 37on 02-28-2024 37 Normal [facility] Progress Noteon 02-28-2024 Progress Note Normal [facility] Progress Noteon 02-18-2024 Progress Note Normal [facility] 36on 02-14-2024 36 I was able to speak with patient, I notified him of the results, and provided him with the number to the clinic so he can call to set up an appointment. [facility] as well to has access to that way. Normal [facility] 36on 02-13-2024 36 Normal [facility] 36 Normal [facility] 36 error Normal [facility] CT LUNG SCREENING LOW DOSEon 02-13-2024 CT LUNG SCREENING LOW DOSE Normal [facility] 36on 02-06-2024 36 Seen yesterday No future appt Normal [facility] 36 06/26/23 last filled Seen yesterday. No future appt set up Normal [facility] Progress Noteon 02-05-2024 Progress Note Normal [facility] Progress Noteon 01-28-2024 Progress Note Normal [facility] 30on 01-24-2024 30 Normal [facility] [id number] 01-24-2024 [id number] Normal [facility] Nursing Noteon 01-24-2024 Nursing Note Normal [facility] Nursing Note Patient up, social w ith peers with appropriate behavior. Patient takes medication with ease. Patient encouraged to make needs known. Normal [facility] 30on 01-23-2024 30 Normal [facility] Nursing Noteon 01-23-2024 Nursing Note Normal [facility] Nursing Note Patient is up and [facility], seen in group room socializing. Pt is cooperative and med compliant. Pt denies SI/HI/AVH. Pt encouraged to notify staff for any questions and concerns. Normal [facility] Progress Noteon 01-23-2024 Progress Note Normal [facility] [id number] 01-22-2024 [id number] Normal [facility] 94on 01-22-2024 94 Normal [facility] COMPREHENSIVE METABOLIC PANE Arnulfo 01-22-2024 Albumin [Mass/Vol] 3.9 g/dL Normal 3.5-5.0 [facility] Comment on above: Performed By: #### L [id number] ####Underwriting Internship: CEIC DUPREE ([id number])[facility] ([address] ALP [Catalytic activity/Vol] 77 U/L Normal 38-126 [facility] Comment on above: Performed By: #### L [id number] ####Underwriting Internship: CECI DUPREE ([id number])[facility] ([facility])[address] [place] [address] ALT [Catalytic activity/Vol] 75 U/L High 0-49 [facility] Comment on above: Performed By: #### L [id number] ####Underwriting Internship: CECI DUPREE ([id number])[facility] [place] [address] Anion gap [Moles/Vol] 5 mmol/L Normal 3-13 [facility] Comment on above: Performed By: #### L [id number] ####Underwriting Internship: CECI DUPREE ([id number])[facility] ([facility])[address] [place] [address] AST [Catalytic activity/Vol] 58 U/L High 15-46 [facility] Comment on above: Performed By: #### L [id number] ####Underwriting Internship: CECI DUPREE ([id number])[facility] ([facility])[address] [place] [address] Bilirubin [Mass/Vol] 0.7 mg/dL Normal 0.2-1.3 [facility] Comment on above: Performed By: #### L [id number] ####Underwriting Internship: CECI DUPREE ([id number])[facility] ([facility])[address] [place] [address] Calcium [Mass/Vol] 8.9 mg/dL Normal 8.4-10.4 [facility] Comment on above: Performed By: #### L [id number] ####Underwriting Internship: CECI DUPREE ([id number])[facility] ([facility])[address] [place] [address] [place] Chloride [Moles/Vol] 96 mmol/L Low 98-107 [facility] Comment on above: Performed By: #### L [id number] ####Underwriting Internship: CECI DUPREE ([id number])[facility] ([facility])[address] [place] [address] [place] CO2 [Moles/Vol] 29 mmol/L Normal 22-30 [facility] Comment on above: Performed By: #### L [id number] ####Underwriting Internship: CECI DUPREE ([id number])[facility])[address] [place] [address] Creatinine [Mass/Vol] 0.61 mg/dL Low 0.66-1.25 [facility] Comment on above: Performed By: #### L [id number] ####Underwriting Internship: CECI DUPREE ([id number])[facility])[address] [place] [address] GLOMERULAR FILTRATION RATE ML/MIN/1.73 SQ M.PREDICTED >90.0 Normal >60.0 [facility] Comment on above: Result Comment: Calc ulation based on the Chronic Kidney Disease Epidemiology Collaboration (CKD-EPI) equation refit without adjustment for race Performed By: #### L [id number] ####Underwriting Internship: CECI DUPREE ([id number])[facility])[address] [place] [address] Glucose [Mass/Vol] 98 mg/dL Normal 70-100 [facility] Comment on above: Performed By: #### L [id number] ####Underwriting Internship: CECI DUPREE ([id number])[facility])[address] [place] [address] Potassium [Moles/Vol] 4.0 mmol/L Normal 3.5-5.1 [facility] Comment on above: Performed By: #### L [id number] ####Underwriting Internship: CECI DUPREE ([id number])[facility])[address] [place] [address] Protein [Mass/Vol] 6.6 g/dL Normal 6.3-8.2 [facility] Comment on above: Performed By: #### L [id number] ####Underwriting Internship: CECI DUPREE ([id number])[facility])[address] [place] [address] Sodium [Moles/Vol] 130 mmol/L Low 135-145 [facility] Comment on above: Performed By: #### L [id number] ####Underwriting Internship: CECI DUPREE ([id number])[facility])[address] [place] [address] Urea nitrogen [Mass/Vol] 7 mg/dL Low 9-20 [facility] Comment on above: Performed By: #### L [id number] ####Underwriting Internship: CECI DUPREE ([id number])[facility])[address] [place] [address] Comprehensive metabolic 1998 panelon 01-22-2024 Albumin [Mass/Vol] 3.9 g/dL 3.5 - 5.0 g/dL [facility] ALP [Catalytic activity/Vol] 77 U/L 38 - 126 U/L [facility] ALT [Catalytic activity/Vol] 75 U/L High 0 - 49 U/L [facility] Anion gap [Moles/Vol] 5 mmol/L 3 - 13 mmol/L [facility] AST [Catalytic activity/Vol] 58 U/L High 15 - 46 U/L [facility] Bilirubin [Mass/Vol] 0.7 mg/dL 0.2 - 1 .3 mg/dL [facility] Calcium [Mass/Vol] 8.9 mg/dL 8.4 - 10. 4 mg/dL [facility] Chloride [Moles/Vol] 96 mmol/L Low 98 - 10 7 mmol/L [facility] CO2 [Moles/Vol] 29 mmol/L 22 - 30 mmol/L [facility] Creatinine [Mass/Vol] 0.61 mg/dL Low 0.66 - 1.25 mg/dL [facility] GFR/1.73 sq M.predicted (S/P/Bld) [Vol rate/Area] - PINF [facility] Comment on above: Calculation based on the Chronic Kidney Disease Epidemiology Collaboration (CKD-EPI) equation refit without adjustment for race Glucose [Mass/Vol] 98 mg/dL 70 - 100 mg/dL [facility] Interpretation and review of laboratory results Abnormal [facility] Potassium [Moles/Vol] 4 mmol/L 3.5 - 5.1 mmol/L [facility] Protein [Mass/Vol] 6.6 g/dL 6.3 - 8.2 g/dL [facility] Sodium [Moles/Vol] 130 mmol/L Low 135 - 145 mmol/L [facility] Urea nitrogen [Mass/Vol] 7 mg/dL Low 9 - 20 mg/dL [facility] Nursing Noteon 01-22-2024 Nursing Note Normal [facility] Progress Noteon 01-22-2024 Progress Note Nutrition rescreen completed. Chart reviewed. Patient to be monitored and followed by the diet optical laboratory technician. Lamar Smith, DT Normal [facility] Progress Note Normal [facility] 30on 01-21-2024 30 The patient is Moder ately Stable - Low risk of patient condition declining or worsening The patient's goals for the shift include rest The clinical goals for the shift include comfort/safety [facility] [id number] 01-21-2024 [id number] [facility] Nursing Noteon 01-21-2024 Nursing Note Patient is up and st madeleine, seen in group room. Pt is cooperative and med compliant. Pt is encouraged to notify staff for any questions and concerns. Normal [facility] Nursing Note Patient received PRN albuterol inhaler as per orders at 1112 for . Normal [facility] Nursing Note Patient received PRN respiratory TX from RT at 0915 with good results. 02 93 percent with no O2 Normal [facility] CBC W Auto Differential pane l (Bld)Ordered By: Jyotsna Peralta on 01-20-2024 Basophils (Bld) [#/Vol] 0 10*3/uL 0.0 - 0.2 10*3/uL [facility] Basophils/100 WBC (Bld) 0.5 % 0.0 - 2.0 % [facility] Eosinophils (Bld) [#/Vol] 0 10*3/uL 0.0 - 0.5 10*3/uL [facility] Eosinophils/100 WBC (Bld) 1 % 0.0 - 6.0 % [facility] Erythrocyte distribution width (RBC) [Ratio] 14.1 % 11.5 - 15.0 % [facility] Hematocrit (Bld) [Volume fraction] 46 % 40.0 - 52.0 % [facility] Hemoglobin (Bld) [Mass/Vol] 16.1 g/dL 13.0 - 18.0 g/dL [facility] Immature granulocytes (Bld) [#/Vol] 0 10*3/uL NINF - 0.1 10*3/uL [facility] Immature granulocytes/100 WBC (Bld) 0.5 % 0.0 - 2.0 % [facility] Interpretation and review of laboratory results Abnormal [facility] Lymphocytes (Bld) [#/Vol] 1.3 10*3/uL 1.0 - 4.3 10*3/uL [facility] Lymphocytes/100 WBC (Bld) 30.6 % 15.0 - 45.0 % [facility] MCH (RBC) [Entitic mass] 33 pg 26.0 - 34.0 pg [facility] MCHC (RBC) [Mass/Vol] 35 % 30.5 - 36.0 % [facility] MCV (RBC) [Entitic vol] 94.3 fL 77.0 - 99.0 fL [facility] Monocytes (Bld) [#/Vol] 0.6 10*3/uL 0.0 - 0.9 10*3/uL [facility] Monocytes/100 WBC (Bld) 14.2 % High 5.0 - 13.0 % [facility] Neutrophils (Bld) [#/Vol] 2.2 10*3/uL 1.8 - 7.5 10*3/uL [facility] Neutrophils/100 WBC (Bld) 53.2 % 38.0 - 82.0 % [facility] Nucleated RBC/100 WBC (Bld) [Ratio] 0 % [facility] Platelet mean volume (Bld) [Entitic vol] 8.8 fL Low 9.0 - 12.7 fL [facility] Platelets (Bld) [#/Vol] 156 10*3/uL 140 - 440 10*3/uL [facility] RBC (Bld) [#/Vol] 4.88 10*6/uL 4.40 - 5.90 10*6/uL [facility] WBC (Bld) [#/Vol] 4.2 10*3/uL 3.6 - 10.7 10*3/uL [facility] CBC WITH AUTO DIFFERENTIALon 01-20-2024 Basophils (Bld) [#/Vol] 0.0 10*3/uL Normal 0.0-0.2 [facility] Comment on above: Performed By: #### L [id number] ####Underwriting Internship: REINIER ZHU ([id number])[facility] ([facility])[address] Basophils/100 WBC (Bld) 0.5 % Normal 0.0-2.0 [facility] Comment on above: Performed By: #### L [id number] ####Underwriting Internship: REINIER ZHU ([id number])[facility] ([facility])[address] Eosinophils (Bld) [#/Vol] 0.0 10*3/uL Normal 0.0-0.5 [facility] Comment on above: Performed By: #### L [id number] ####Underwriting Internship: REINIER ZHU ([id number])[facility] ([facility])[address] Eosinophils/100 WBC (Bld) 1.0 % Normal 0.0-6.0 [facility] Comment on above: Performed By: #### L [id number] ####Underwriting Internship: REINIER ZHU ([id number])[facility] ([facility])[address] Erythrocyte distribution width (RBC) [Ratio] 14.1 % Normal 11.5-15.0 [facility] Comment on above: Performed By: #### L [id number] ####Underwriting Internship: REINIER ZHU ([id number])[facility] ([facility])[address] [place] [address] Hematocrit (Bld) [Volume fraction] 46.0 % Normal 40.0-52.0 [facility] Comment on above: Performed By: #### L [id number] ####Underwriting Internship: REINIER ZHU ([id number])[facility] ([facility])[address] Hemoglobin (Bld) [Mass/Vol] 16.1 g/dL Normal 13.0-18.0 [facility] Comment on above: Performed By: #### L [id number] ####Underwriting Internship: REINIER ZHU ([id number])[facility] ([facility])[address] IMMATURE GRANS % 0.5 % Normal 0.0-2.0 [facility] Comment on above: Performed By: #### L [id number] ####Underwriting Internship: REINIER ZHU ([id number])[facility] ([facility])[address] IMMATURE GRANS ABSOLUTE 0.0 10*3/uL Normal <0.1 [facility] Comment on above: Performed By: #### L [id number] ####Underwriting Internship: REINIER ZHU ([id number])[facility] ([facility])[address] Lymphocytes (Bld) [#/Vol] 1.3 10*3/uL Normal 1.0-4.3 [facility] Comment on above: Performed By: #### L [id number] ####Underwriting Internship: REINIER ZHU ([id number])[facility] ([facility])[address] Lymphocytes/100 WBC (Bld) 30.6 % Normal 15.0-45.0 [facility] Comment on above: Performed By: #### L [id number] ####Underwriting Internship: REINIER ZHU ([id number])[facility] ([facility])[address] MCH (RBC) [Entitic mass] 33.0 pg Normal 26.0-34.0 [facility] Comment on above: Performed By: #### L [id number] ####Underwriting Internship: REINIER ZHU ([id number])[facility] ([facility])[address] MCHC 35.0 % Normal 30.5-36.0 [facility] Comment on above: Performed By: #### L [id number] ####Underwriting Internship: REINIER ZHU ([id number])[facility] ([facility])[address] MCV (RBC) [Entitic vol] 94.3 fL Normal 77.0-99.0 [facility] Comment on above: Performed By: #### L [id number] ####Underwriting Internship: REINIER ZHU ([id number])[facility] ([facility])[address] Monocytes (Bld) [#/Vol] 0.6 10*3/uL Normal 0.0-0.9 [facility] Comment on above: Performed By: #### L [id number] ####Underwriting Internship: REINIER ZHU ([id number])[facility] ([facility])[address] Monocytes/100 WBC (Bld) 14.2 % High 5.0-13.0 [facility] Comment on above: Performed By: #### L [id number] ####Underwriting Internship: REINIER ZHU ([id number])[facility] ([facility])[address] NEUTROPHILS ABSOLUTE 2.2 10*3/uL Normal 1.8-7.5 [facility] Comment on above: Performed By: #### L [id number] ####Underwriting Internship: REINIER ZHU ([id number])[facility] ([facility])[address] [place] [address] Neutrophils/100 WBC (Bld) 53.2 % Normal 38.0-82.0 [facility] Comment on above: Performed By: #### L [id number] ####Underwriting Internship: REINIER ZHU ([id number])[facility] ([facility])[address] [place] [address] [place] NRBC 0.0 /100 WBCs Normal 0.0-2.0 [facility] Comment on above: Performed By: #### L [id number] ####Underwriting Internship: REINIER ZHU ([id number])[facility] ([facility])[address] Platelet mean volume (Bld) [Entitic vol] 8.8 fL Low 9.0-12.7 [facility] Comment on above: Performed By: #### L [id number] ####Underwriting Internship: REINIER ZHU ([id number])[facility] ([facility])[address] Platelets (Bld) [#/Vol] 156 10*3/uL Normal 140-440 [facility] Comment on above: Performed By: #### L [id number] ####Underwriting Internship: REINIER ZHU ([id number])[facility] ([facility])[address] RBC (Bld) [#/Vol] 4.88 10*6/uL Normal 4.40-5.90 [facility] Comment on above: Performed By: #### L [id number] ####Underwriting Internship: REINIER ZHU ([id number])[facility] ([facility])[address] WBC (Bld) [#/Vol] 4.2 10*3/uL Normal 3.6-10.7 [facility] Comment on above: Performed By: #### L [id number] ####Underwriting Internship: REINIER ZHU ([id number])[facility] ([facility])[address] COMPREHENSIVE METABOLIC PANE Arnulfo 01-20-2024 Albumin [Mass/Vol] 4.3 g/dL Normal 3.5-5.0 [facility] Comment on above: Performed By: #### L AB17, LAB46 ####Underwriting Internship: REINIER ZHU ([id number])[facility] ([facility])[address] ALP [Catalytic activity/Vol] 100 U/L Normal 38-126 [facility] Comment on above: Performed By: #### L AB17, LAB46 ####Underwriting Internship: REINIER ZHU ([id number])[facility] ([facility])[address] ALT [Catalytic activity/Vol] 106 U/L High 0-49 [facility] Comment on above: Performed By: #### L AB17, LAB46 ####Underwriting Internship: REINIER ZUH ([id number])[facility] ([facility])[address] Anion gap [Moles/Vol] 15 mmol/L High 3-13 [facility] Comment on above: Performed By: #### L AB17, LAB46 ####Underwriting Internship: REINIER ZHU ([id number])[facility] ([facility])[address] AST [Catalytic activity/Vol] 102 U/L High 15-46 [facility] Comment on above: Performed By: #### L AB17, LAB46 ####Underwriting Internship: REINIER ZHU ([id number])[facility] ([facility])[address] Bilirubin [Mass/Vol] 0.5 mg/dL Normal 0.2-1.3 [facility] Comment on above: Performed By: #### L AB17, LAB46 ####Underwriting Internship: REINIER ZHU ([id number])[facility] ([facility])[address] Calcium [Mass/Vol] 8.2 mg/dL Low 8.4-10.4 [facility] Comment on above: Performed By: #### L AB17, LAB46 ####Underwriting Internship: REINIER ZHU ([id number])[facility] ([facility])[address] [place] [address] [place] Chloride [Moles/Vol] 93 mmol/L Low 98-107 [facility] Comment on above: Performed By: #### L AB17, LAB46 ####Underwriting Internship: REINIER ZHU ([id number])[facility] ([facility])[address] CO2 [Moles/Vol] 26 mmol/L Normal 22-30 [facility] Comment on above: Performed By: #### L AB17, LAB46 ####Underwriting Internship: REINIER ZHU ([id number])[facility] ([facility])[address] Creatinine [Mass/Vol] 0.59 mg/dL Low 0.66-1.25 [facility] Comment on above: Performed By: #### L AB17, LAB46 ####Underwriting Internship: REINIER ZHU ([id number])[facility] ([facility])[address] GLOMERULAR FILTRATION RATE ML/MIN/1.73 SQ M.PREDICTED >90.0 Normal >60.0 [facility] Comment on above: Result Comment: Calc ulation based on the Chronic Kidney Disease Epidemiology Collaboration (CKD-EPI) equation refit without adjustment for race Performed By: #### L AB17, LAB46 ####Underwriting Internship: REINIER ZHU ([id number])[facility] ([facility])[address] Glucose [Mass/Vol] 174 mg/dL High 70-100 [facility] Comment on above: Performed By: #### L AB17, LAB46 ####Underwriting Internship: REINIER ZHU ([id number])[facility] ([facility])[address] [place] [address] [place] Potassium [Moles/Vol] 4.1 mmol/L Normal 3.5-5.1 [facility] Comment on above: Performed By: #### L AB17, LAB46 ####Underwriting Internship: REINIER ZHU ([id number])[facility] ([facility])[address] Protein [Mass/Vol] 7.3 g/dL Normal 6.3-8.2 [facility] Comment on above: Performed By: #### L AB17, LAB46 ####Underwriting Internship: REINIER BATISTACER ([id number])[facility] ([facility])[address] Sodium [Moles/Vol] 134 mmol/L Low 135-145 [facility] Comment on above: Performed By: #### L AB17, LAB46 ####Underwriting Internship: REINIERJA ZHU ([id number])[facility] ([facility])[address] Urea nitrogen [Mass/Vol] 7 mg/dL Low 9-20 [facility] Comment on above: Performed By: #### L AB17, LAB46 ####Underwriting Internship: REINIERJA ZHU ([id number])[facility] ([facility])[address] Comprehensive metabolic 1998 panelon 01-20-2024 Albumin [Mass/Vol] 4.3 g/dL 3.5 - 5.0 g/dL [facility] ALP [Catalytic activity/Vol] 100 U/L 38 - 126 U/L [facility] [facility] ALT [Catalytic activity/Vol] 106 U/L High 0 - 49 U/L [facility] Anion gap [Moles/Vol] 15 mmol/L High 3 - 13 mmol/L [facility] AST [Catalytic activity/Vol] 102 U/L High 15 - 46 U/L [facility] Bilirubin [Mass/Vol] 0.5 mg/dL 0.2 - 1 .3 mg/dL [facility] Calcium [Mass/Vol] 8.2 mg/dL Low 8.4 - 10. 4 mg/dL [facility] Chloride [Moles/Vol] 93 mmol/L Low 98 - 10 7 mmol/L [facility] CO2 [Moles/Vol] 26 mmol/L 22 - 30 mmol/L [facility] Creatinine [Mass/Vol] 0.59 mg/dL Low 0.66 - 1.25 mg/dL [facility] GFR/1.73 sq M.predicted (S/P/Bld) [Vol rate/Area] - PINF [facility] Comment on above: Calculation based on the Chronic Kidney Disease Epidemiology Collaboration (CKD-EPI) equation refit without adjustment for race Glucose [Mass/Vol] 174 mg/dL High 70 - 100 mg/dL [facility] Interpretation and review of laboratory results Abnormal [facility] Potassium [Moles/Vol] 4.1 mmol/L 3.5 - 5.1 mmol/L [facility] Protein [Mass/Vol] 7.3 g/dL 6.3 - 8.2 g/dL [facility] Sodium [Moles/Vol] 134 mmol/L Low 135 - 145 mmol/L [facility] Urea nitrogen [Mass/Vol] 7 mg/dL Low 9 - 20 mg/dL [facility] DRUGS OF ABUSEon 01-20-2024 AMPHETAMINE SCREEN Negative Normal [facility] Comment on above: Performed By: #### L [id number] ####Underwriting Internship: REINIER ZHU ([id number])[facility] ([facility])[address] [place] [address] BARBITURATES SCREEN Negative Normal [facility] Comment on above: Performed By: #### L [id number] ####Underwriting Internship: REINIER ZHU ([id number])[facility] [place] [address] BENZODIAZEPINE SCREEN Negative Normal [facility] Comment on above: Performed By: #### L [id number] ####Underwriting Internship: REINIER ZHU ([id number])[facility] [place] [address] COCAINE METAB. SCREEN Negative Normal [facility] Comment on above: Performed By: #### L [id number] ####Underwriting Internship: REINIER ZHU ([id number])[facility] [place] [address] METHADONE SCREEN Negative Normal [facility] Comment on above: Performed By: #### L [id number] ####Underwriting Internship: REINIER ZHU ([id number])[facility])[address] OPIATES SCREEN Negative Normal [facility] Comment on above: Performed By: #### L [id number] ####Underwriting Internship: REINIER ZHU ([id number])[facility] ([facility])[address] OXYCODONE SCREEN Negative Normal [facility] Comment on above: Performed By: #### L [id number] ####Underwriting Internship: REINIER ZHU ([id number])[facility] ([facility])[address] PHENCYCLIDINE SCREEN Negative Normal [facility] Comment on above: Result Comment: ORDE R COMMENTS:The expected value for all of the drugs listed above is Negative.The following drugs or drug groups have been screened for by Immunoassay at the following thresholds:Amphetamine class (1000 ng/mL)Barbiturates (200 ng/mL)Benzodiazepines (200 ng/mL)Cocaine (300 ng/mL)Methadone (300 ng/mL)Opiates (300 ng/mL)Oxycodone (100 ng/mL)PCP (25 ng/mL)NOTE: These results are for medical treatment only. Analysis performed using non-forensic procedures. POSITIVE results are NOT confirmed by a more specificalternative method unless requested. If confirmation is needed, request confirmation under separate order. Performed By: #### L [id number] ####Underwriting Internship: REINIER ZHU ([id number])[facility] ([facility])[address] ECG 12-LEADon 01-20-2024 ECG 12-LEAD IMPRESSION: Sinus rhythm Consider anterior infarct Electronically Signed On 01-20-2024 19:55:10 EDT by Triston Abraham Normal [facility] ED Nursing Noteon 01-20-2024 ED Nursing Note Called in report to JAY Acevedo at [facility] 4W. Jacqueline Richardson RN 01/20/243 Normal [facility] ED Nursing Note Pt presents seeking alcohol detox. Last drink was right before leaving house. Drinks about 6-8 beers/day. Has been through detox in past. Has never had withdrawal seizures. Currently having anxiety, vomiting, palpitations Normal [facility] ED Provider Noteon ED Provider Note Normal [facility] ETHANOLon 01-20-2024 ETHANOL IN SER/PLAS 0.435 g/dL Critically high 0.000 -0.01 0 [facility] Comment on above: Result Comment: [place] Lagunas COMMENTS:NOTE: This result is for medical treatment only. Analysis performed using non-forensic procedures. Performed By: #### L [id number] ####Underwriting Internship: REINIER ZHU ([id number])[facility] ([facility])[address] [place] [address] Ethanol (Bld) [Mass/Vol]Orde red By: Shellie Morel on 01-20-2024 Ethanol [Mass/Vol] 0.435 g/dL Critically high 0.000 - 0.010 g/dL [facility] Interpretation and review of laboratory results Abnormal [facility] Laboratory - Drug toxicology Ordered By: Nanette Elias on 01-20-2024 Amphetamines Screen method >1000 ng/mL Ql (U) Negative [facility] Barbiturates Screen method >200 ng/mL Ql (U) Negative [facility] Benzodiazepines Ql (U) Negative [facility] Methadone Screen Ql (U) Negative [facility] Opiates Screen Ql (U) Negative [facility] oxyCODONE Ql (U) Negative [facility] Phencyclidine Ql (U) Negative [facility] Laboratory - Microbiology an d Antimicrobial susceptibilityon 01-20-2024 SARS-CoV-2 (COVID-19) Ag IA.rapid Ql (Resp) Negative Negative [facility] Comment on above: A negative result do es not rule out the possibility of SARS-CoV-2 infection. NAAT-based methods should be considered for symptomatic patients presenting greater than seven days after onset of symptoms. Method: Lateral flow immunoassay. Fact sheets for healthcare providers and patients can be found at the following sites: https://www.fda.gov/media/910136/download https://www.fda.gov/media/461855/download No Panel Informationon 01-19 P [place] 50 degrees [facility] Interval 166 ms [facility] QRS [place] 55 degrees [facility] QRSD Interval 97 ms [facility] QT Interval 367 ms [facility] QTC Interval 460 ms [facility] T Wave [place] 51 degrees [facility] Sinus rhythm Consider anterior infarct Electronically Signed On 01-20-2024 19:55:10 EDT by Triston Abraham CV Triston Lehman MD - 01/20/2024 IMPRESSION: Sinus rhythm Consider anterior infarct Electronically Signed On 01-20-2024 19:55:10 EDT by Triston Abraham [facility] No Panel InformationOrdered By: Nanette Elias on 01-20-2024 COCAINE METAB. SCREEN Negative [facility] The expected value f or all of the drugs listed above is Negative. The following drugs or drug groups have been screened for by Immunoassay at the following thresholds: Amphetamine class (1000 ng/mL) Barbiturates (200 ng/mL) Benzodiazepines (200 ng/mL) Cocaine (300 ng/mL) Methadone (300 ng/mL) Opiates (300 ng/mL) Oxycodone (100 ng/mL) PCP (25 ng/mL) NOTE: These results are for medical treatment only. Analysis performed using non-forensic procedures. POSITIVE results are NOT confirmed by a more specific alternative method unless requested. If confirmation is needed, request confirmation under separate order. [facility] Nursing Noteon 01-20-2024 Nursing Note Normal [facility] SARS-COV-2 ANTIGENon 024 SARS-COV-2 ANTIGEN Normal [facility] Comment on above: Performed By: #### L [id number] ####Underwriting Internship: REINIER ZHU ([id number])[facility] ([facility])[address] [place] [address] SARS-CoV-2 (COVID-19) Ag IA. rapid Ql (Resp)on 01-20-2024 Interpretation and review of laboratory results Normal [facility] Vital signson 01-20-2024 Heart rate 95 /min bpm [facility] CARECOORDon 12-11-2023 CARECOORD Pt did not show for IOP assessment on this date. Normal [facility] 36on 12-04-2023 36 For CAROL Normal [facility] 36 Normal [facility] 36 Normal [facility] 36on 12-03-2023 36 Normal [facility] IDNon 11-30-2023 IDN Normal [facility] IDN The patient is Moder ately Stable - Low risk of patient condition declining or worsening The patient's goals for the shift include Safety The clinical goals for the shift include Safety Normal [facility] Nursing Noteon 11-30-2023 Nursing Note Normal [facility] CARECOORDon 11-29-2023 CARECOORD S/W, IOP IOP counselor did come up to see patient to discuss treatment program. Patient was scheduled for an appointment for 12/10 at 10A. Normal [facility] CARECOORD Normal [facility] CARECOORD Normal [facility] IDNon 11-29-2023 IDN The patient is Moder ately Stable - Low risk of patient condition declining or worsening The patient's goals for the shift include Safety and to feel better. The clinical goals for the shift include safety [facility] Progress Noteon 11-29-2023 Progress Note [facility] Progress Note Nutrition rescreen completed. Chart reviewed. Patient to be monitored and followed by the diet optical laboratory technician. Normal [facility] Progress Note Normal [facility] BASIC METABOLIC PANELon 08 Anion gap [Moles/Vol] 9 mmol/L Normal 3-13 [facility] Comment on above: Performed By: #### L [id number] ####Underwriting Internship: REINIER ZHU ([id number])[facility] ([facility])[address] [place] [address] Calcium [Mass/Vol] 8.4 mg/dL Normal 8.4-10.4 [facility] Comment on above: Performed By: #### L [id number] ####Underwriting Internship: REINIER ZHU ([id number])[facility] ([facility])[address] Chloride [Moles/Vol] 99 mmol/L Normal 98-107 [facility] Comment on above: Performed By: #### L [id number] ####Underwriting Internship: REINIER ZHU ([id number])[facility] ([facility])[address] CO2 [Moles/Vol] 27 mmol/L Normal 22-30 [facility] Comment on above: Performed By: #### L [id number] ####Underwriting Internship: REINIER ZHU ([id number])[facility] ([facility])[address] Creatinine [Mass/Vol] 0.62 mg/dL Low 0.66-1.25 [facility] Comment on above: Performed By: #### L [id number] ####Underwriting Internship: REINIER ZHU ([id number])[facility] ([facility])[address] GLOMERULAR FILTRATION RATE ML/MIN/1.73 SQ M.PREDICTED >90.0 Normal >60.0 [facility] Comment on above: Result Comment: Calc ulation based on the Chronic Kidney Disease Epidemiology Collaboration (CKD-EPI) equation refit without adjustment for race Performed By: #### L [id number] ####Underwriting Internship: REINIER ZHU ([id number])[facility] ([facility])[address] [place] [address] [place] Glucose [Mass/Vol] 108 mg/dL High 70-100 [facility] Comment on above: Performed By: #### L [id number] ####Underwriting Internship: REINIER ZHU ([id number])[facility] ([facility])[address] [place] [address] [place] Potassium [Moles/Vol] 4.0 mmol/L Normal 3.5-5.1 [facility] Comment on above: Performed By: #### L [id number] ####Underwriting Internship: REINIER ZHU ([id number])[facility] ([facility])[address] [place] [address] [place] Sodium [Moles/Vol] 135 mmol/L Normal 135-145 [facility] Comment on above: Performed By: #### L [id number] ####Underwriting Internship: REINIER ZHU ([id number])[facility] ([facility])[address] Urea nitrogen [Mass/Vol] 7 mg/dL Low 9-20 [facility] Comment on above: Performed By: #### L [id number] ####Underwriting Internship: REINIER ZHU ([id number])[facility] ([facility])[address] Basic metabolic 1998 panelon 11-28-2023 Anion gap [Moles/Vol] 9 mmol/L 3 - 13 mmol/L [facility] Calcium [Mass/Vol] 8.4 mg/dL 8.4 - 10. 4 mg/dL [facility] Chloride [Moles/Vol] 99 mmol/L 98 - 10 7 mmol/L [facility] CO2 [Moles/Vol] 27 mmol/L 22 - 30 mmol/L [facility] Creatinine [Mass/Vol] 0.62 mg/dL Low 0.66 - 1.25 mg/dL [facility] GFR/1.73 sq M.predicted (S/P/Bld) [Vol rate/Area] - PINF [facility] Comment on above: Calculation based on the Chronic Kidney Disease Epidemiology Collaboration (CKD-EPI) equation refit without adjustment for race Glucose [Mass/Vol] 108 mg/dL High 70 - 100 mg/dL [facility] Interpretation and review of laboratory results Abnormal [facility] Potassium [Moles/Vol] 4.0 mmol/L 3.5 - 5.1 mmol/L [facility] Sodium [Moles/Vol] 135 mmol/L 135 - 145 mmol/L [facility] Urea nitrogen [Mass/Vol] 7 mg/dL Low 9 - 20 mg/dL [facility] CBC W Auto Differential pane l (Bld)on 11-28-2023 Basophils (Bld) [#/Vol] 0.0 10*3/uL 0.0 - 0.2 10*3/uL [facility] Basophils/100 WBC (Bld) 0.4 % 0.0 - 2.0 % [facility] Eosinophils (Bld) [#/Vol] 0.1 10*3/uL 0.0 - 0.5 10*3/uL [facility] Eosinophils/100 WBC (Bld) 1.4 % 0.0 - 6.0 % [facility] Erythrocyte distribution width (RBC) [Ratio] 14.4 % 11.5 - 15.0 % [facility] Hematocrit (Bld) [Volume fraction] 40.9 % 40.0 - 52.0 % [facility] Hemoglobin (Bld) [Mass/Vol] 13.7 g/dL 13.0 - 18.0 g/dL [facility] Immature granulocytes (Bld) [#/Vol] 0.0 10*3/uL NINF - 0.1 10*3/uL [facility] Immature granulocytes/100 WBC (Bld) 0.2 % 0.0 - 2.0 % [facility] Interpretation and review of laboratory results Abnormal [facility] Lymphocytes (Bld) [#/Vol] 1.4 10*3/uL 1.0 - 4.3 10*3/uL [facility] Lymphocytes/100 WBC (Bld) 28.5 % 15.0 - 45.0 % [facility] MCH (RBC) [Entitic mass] 31.6 pg 26.0 - 34.0 pg [facility] MCHC (RBC) [Mass/Vol] 33.5 % 30.5 - 36.0 % [facility] MCV (RBC) [Entitic vol] 94.2 fL 77.0 - 99.0 fL [facility] Monocytes (Bld) [#/Vol] 0.7 10*3/uL 0.0 - 0.9 10*3/uL [facility] Monocytes/100 WBC (Bld) 14.3 % High 5.0 - 13.0 % [facility] Neutrophils (Bld) [#/Vol] 2.7 10*3/uL 1.8 - 7.5 10*3/uL [facility] Neutrophils/100 WBC (Bld) 55.2 % 38.0 - 82.0 % [facility] Nucleated RBC/100 WBC (Bld) [Ratio] 0.0 % [facility] Platelet mean volume (Bld) [Entitic vol] 8.5 fL Low 9.0 - 12.7 fL [facility] Platelets (Bld) [#/Vol] 210 10*3/uL 140 - 440 10*3/uL [facility] RBC (Bld) [#/Vol] 4.34 10*6/uL Low 4.40 - 5.90 10*6/uL [facility] WBC (Bld) [#/Vol] 4.9 10*3/uL 3.6 - 10.7 10*3/uL [facility] CBC WITH AUTO DIFFERENTIALon 11-28-2023 Basophils (Bld) [#/Vol] 0.0 10*3/uL Normal 0.0-0.2 [facility] Comment on above: Performed By: #### L [id number] ####Underwriting Internship: REINIER ZHU ([id number])[facility] [place] ([facility])[address] Basophils/100 WBC (Bld) 0.4 % Normal 0.0-2.0 [facility] Comment on above: Performed By: #### L [id number] ####Underwriting Internship: REINIER ZHU ([id number])[facility] ([facility])[address] [place] [address] Eosinophils (Bld) [#/Vol] 0.1 10*3/uL Normal 0.0-0.5 [facility] Comment on above: Performed By: #### L [id number] ####Underwriting Internship: REINIER ZHU ([id number])[facility])[address] [place] [address] Eosinophils/100 WBC (Bld) 1.4 % Normal 0.0-6.0 [facility] Comment on above: Performed By: #### L [id number] ####Underwriting Internship: REINIER ZHU ([id number])[facility] ([facility])[address] [place] [address] Erythrocyte distribution width (RBC) [Ratio] 14.4 % Normal 11.5-15.0 [facility] Comment on above: Performed By: #### L [id number] ####Underwriting Internship: REINIER ZHU ([id number])[facility] ([facility])[address] [place] [address] Hematocrit (Bld) [Volume fraction] 40.9 % Normal 40.0-52.0 [facility] Comment on above: Performed By: #### L [id number] ####Underwriting Internship: REINIER ZHU ([id number])[facility])[address] Hemoglobin (Bld) [Mass/Vol] 13.7 g/dL Normal 13.0-18.0 [facility] Comment on above: Performed By: #### L [id number] ####Underwriting Internship: REINIER ZHU ([id number])[facility] IMMATURE GRANS % 0.2 % Normal 0.0-2.0 [facility] Comment on above: Performed By: #### L [id number] ####Underwriting Internship: REINIER ZHU ([id number])[facility] ([facility])[address] [place] [address] IMMATURE GRANS ABSOLUTE 0.0 10*3/uL Normal <0.1 [facility] Comment on above: Performed By: #### L [id number] ####Underwriting Internship: REINIER ZHU ([id number])[facility] [place] ([facility])[address] [place] [address] Lymphocytes (Bld) [#/Vol] 1.4 10*3/uL Normal 1.0-4.3 [facility] Comment on above: Performed By: #### L [id number] ####Underwriting Internship: REINIER ZHU ([id number])[facility] Lymphocytes/100 WBC (Bld) 28.5 % Normal 15.0-45.0 [facility] Comment on above: Performed By: #### L [id number] ####Underwriting Internship: REINIER ZHU ([id number])[facility] MCH (RBC) [Entitic mass] 31.6 pg Normal 26.0-34.0 [facility] Comment on above: Performed By: #### L [id number] ####Underwriting Internship: REINIER OVIEDOBriseidaROGER ([id number])[facility] ([facility])[address] MCHC 33.5 % Normal 30.5-36.0 [facility] Comment on above: Performed By: #### L [id number] ####Underwriting Internship: REINIER MARKO ([id number])[facility] [place] ([facility])[address] MCV (RBC) [Entitic vol] 94.2 fL Normal 77.0-99.0 [facility] Comment on above: Performed By: #### L [id number] ####Underwriting Internship: REINIER MARKO ([id number])[facility] ([facility])[address] [place] [address] Monocytes (Bld) [#/Vol] 0.7 10*3/uL Normal 0.0-0.9 [facility] Comment on above: Performed By: #### L [id number] ####Underwriting Internship: REINIER MORINROGER ([id number])[facility] [place] ([facility])[address] Monocytes/100 WBC (Bld) 14.3 % High 5.0-13.0 [facility] Comment on above: Performed By: #### L [id number] ####Underwriting Internship: REINIER MORINROGER ([id number])[facility] [place] ([facility])[address] NEUTROPHILS ABSOLUTE 2.7 10*3/uL Normal 1.8-7.5 [facility] Comment on above: Performed By: #### L [id number] ####Underwriting Internship: REINIER MORINROGER ([id number])[facility] [place] ([facility])[address] Neutrophils/100 WBC (Bld) 55.2 % Normal 38.0-82.0 [facility] Comment on above: Performed By: #### L [id number] ####Underwriting Internship: REINIER ZHU ([id number])[facility] [place] ([facility])[address] NRBC 0.0 /100 WBCs Normal 0.0-2.0 [facility] Comment on above: Performed By: #### L [id number] ####Underwriting Internship: REINIER ZHU ([id number])[facility] [place] ([facility])[address] Platelet mean volume (Bld) [Entitic vol] 8.5 fL Low 9.0-12.7 [facility] Comment on above: Performed By: #### L [id number] ####Underwriting Internship: REINIER ZHU ([id number])[facility] [place] ([facility])[address] Platelets (Bld) [#/Vol] 210 10*3/uL Normal 140-440 [facility] Comment on above: Performed By: #### L [id number] ####Underwriting Internship: REINIER ZHU ([id number])[facility] [place] ([facility])[address] RBC (Bld) [#/Vol] 4.34 10*6/uL Low 4.40-5.90 [facility] Comment on above: Performed By: #### L [id number] ####Underwriting Internship: REINIER ZHU ([id number])[facility] [place] ([facility])[address] WBC (Bld) [#/Vol] 4.9 10*3/uL Normal 3.6-10.7 [facility] Comment on above: Performed By: #### L [id number] ####Underwriting Internship: REINIER ZHU ([id number])[facility] [place] ([facility])[address] Consulton 11-28-2023 Consult Normal [facility] ECG 12-LEADon 11-28-2023 ECG 12-LEAD IMPRESSION: Sinus tachycardia Probable left atrial enlargement RSR' in V1 or V2, right VCD or RVH Borderline T abnormalities, anterior leads No significant changes compared to 07/27/2023 Electronically Signed On 11-28-2023 04:56:24 EDT by Val Torres [facility] ED Nursing Noteon 11-28-2023 ED Nursing Note Unit made aware of impending patient transport to the unit via broadcast. Judy Higgins RN 11/28/23 1650 Normal [facility] ED Nursing Note O2 turned up to 4L N C due to low saturation in 70's while sleeping Gris Dillon RN 11/28/23 1500 Normal [facility] ED Nursing Note 2L NC applied due to O2 sat in 80's while sleeping Gris Dillon RN 11/28/23 1425 [facility] No Panel Informationon 11-27 P [place] 77 degrees [facility] Interval 158 ms [facility] QRS [place] 85 degrees [facility] QRSD Interval 94 ms [facility] QT Interval 338 ms [facility] QTC Interval 463 ms [facility] T Wave [place] 56 degrees [facility] Sinus tachycardia Probable left atrial enlargement RSR' in V1 or V2, right VCD or RVH Borderline T abnormalities, anterior leads No significant changes compared to 07/27/2023 Electronically Signed On 11-28-2023 04:56:24 EDT by Val Stuart MD - 11/28/2023 IMPRESSION: Sinus tachycardia Probable left atrial enlargement RSR' in V1 or V2, right VCD or RVH Borderline T abnormalities, anterior leads No significant changes compared to 07/27/2023 Electronically Signed On 11-28-2023 04:56:24 EDT by Val Torres [facility] Nursing Noteon 11-28-2023 Nursing Note Normal [facility] Vital signson 11-28-2023 Heart rate 113 /min bpm [facility] CBC (HEMOGRAM)on 11-27-2023 Erythrocyte distribution width (RBC) [Ratio] 14.5 % Normal 11.5-15.0 [facility] Comment on above: Performed By: #### L [id number] ####Underwriting Internship: REINIERJA ZHU ([id number])[facility] WEBBERAnum (SBHLAB)[address] [place] [address] Hematocrit (Bld) [Volume fraction] 44.2 % Normal 40.0-52.0 [facility] Comment on above: Performed By: #### L [id number] ####Underwriting Internship: REINIER MARKO ([id number])[facility] (SBHLAB)[address] Hemoglobin (Bld) [Mass/Vol] 15.1 g/dL Normal 13.0-18.0 [facility] Comment on above: Performed By: #### L [id number] ####Underwriting Internship: REINIERJA ZHU ([id number])[facility] LOPEZCIBOLA GENERAL HOSPITALAnum (SBHL[facility])[address] [place] [address] MCH (RBC) [Entitic mass] 32.0 pg Normal 26.0-34.0 [facility] Comment on above: Performed By: #### L [id number] ####Underwriting Internship: REINIERJA ZHU ([id number])[facility] [place] (SBHLAB)[address] [place] [address] MCHC 34.2 % Normal 30.5-36.0 [facility] Comment on above: Performed By: #### L [id number] ####Underwriting Internship: REINIER MORINROGER ([id number])[facility] (SBHLAB)[address] [place] [address] MCV (RBC) [Entitic vol] 93.6 fL Normal 77.0-99.0 [facility] Comment on above: Performed By: #### L [id number] ####Underwriting Internship: REINIER OVIEDOVINAYAK ([id number])[facility] [place] (SBHLAB)[address] Platelet mean volume (Bld) [Entitic vol] 8.4 fL Low 9.0-12.7 [facility] Comment on above: Performed By: #### L [id number] ####Underwriting Internship: REINIER BATISTACER ([id number])[facility] [place] (SBHLAB)[address] Platelets (Bld) [#/Vol] 248 10*3/uL Normal 140-440 [facility] Comment on above: Performed By: #### L [id number] ####Underwriting Internship: REINIER BATISTACER ([id number])[facility] [place] (SBHLAB)[address] RBC (Bld) [#/Vol] 4.72 10*6/uL Normal 4.40-5.90 [facility] Comment on above: Performed By: #### L [id number] ####Underwriting Internship: REINIER MORINROGER ([id number])[facility] [place] (SBHLAB)[address] [place] [address] WBC (Bld) [#/Vol] 6.0 10*3/uL Normal 3.6-10.7 [facility] Comment on above: Performed By: #### L [id number] ####Underwriting Internship: REINIER MORINROGER ([id number])[facility] [place] (SBHLAB)[address] [place] [address] CBC panel Auto (Bld)on 11-26 Erythrocyte distribution width (RBC) [Ratio] 14.5 % 11.5 - 15.0 % [facility] Hematocrit (Bld) [Volume fraction] 44.2 % 40.0 - 52.0 % [facility] Hemoglobin (Bld) [Mass/Vol] 15.1 g/dL 13.0 - 18.0 g/dL [facility] Interpretation and review of laboratory results Abnormal [facility] MCH (RBC) [Entitic mass] 32.0 pg 26.0 - 34.0 pg [facility] MCHC (RBC) [Mass/Vol] 34.2 % 30.5 - 36.0 % [facility] MCV (RBC) [Entitic vol] 93.6 fL 77.0 - 99.0 fL [facility] Platelet mean volume (Bld) [Entitic vol] 8.4 fL Low 9.0 - 12.7 fL [facility] Platelets (Bld) [#/Vol] 248 10*3/uL 140 - 440 10*3/uL [facility] RBC (Bld) [#/Vol] 4.72 10*6/uL 4.40 - 5.90 10*6/uL [facility] WBC (Bld) [#/Vol] 6.0 10*3/uL 3.6 - 10.7 10*3/uL [facility] COMPREHENSIVE METABOLIC PANE Arnulfo 11-27-2023 Albumin [Mass/Vol] 4.3 g/dL Normal 3.5-5.0 [facility] Comment on above: Performed By: #### L AB46, [id number], LAB17 ####Underwriting Internship: REINIER ZHU ([id number])[facility] VIRAJGHADA (SBHLAB)[address] ALP [Catalytic activity/Vol] 99 U/L Normal 38-126 [facility] Comment on above: Performed By: #### Jose Carlos AB46, [id number], LAB17 ####Underwriting Internship: REINIER ZHU ([id number])[facility] (SBHLAB)[address] ALT [Catalytic activity/Vol] 27 U/L Normal 0-49 [facility] Comment on above: Performed By: #### L AB46, [id number], LAB17 ####Underwriting Internship: REINIER ZHU ([id number])[facility] (SBHLAB)[address] Anion gap [Moles/Vol] 11 mmol/L Normal 3-13 [facility] Comment on above: Performed By: #### L AB46, [id number], LAB17 ####Underwriting Internship: ERINIER ZHU ([id number])[facility] (SBHLAB)[address] [place] [address] [place] AST [Catalytic activity/Vol] 42 U/L Normal 15-46 [facility] Comment on above: Performed By: #### L AB46, [id number], LAB17 ####Underwriting Internship: REINIER ZHU ([id number])[facility] VIRAJCIBOLA GENERAL HOSPITALN (SBHLAB)[address] Bilirubin [Mass/Vol] 0.4 mg/dL Normal 0.2-1.3 [facility] Comment on above: Performed By: #### L AB46, [id number], LAB17 ####Underwriting Internship: REINIER ZHU ([id number])[facility] (SB[facility])[address] Calcium [Mass/Vol] 8.7 mg/dL Normal 8.4-10.4 [facility] Comment on above: Performed By: #### L AB46, [id number], LAB17 ####Underwriting Internship: REINIER ZHU ([id number])[facility] (SBHLAB)[address] Chloride [Moles/Vol] 101 mmol/L Normal 98-107 [facility] Comment on above: Performed By: #### L AB46, [id number], LAB17 ####Underwriting Internship: REINIER ZHU ([id number])[facility] (SBHLAB)[address] [place] [address] [place] CO2 [Moles/Vol] 27 mmol/L Normal 22-30 [facility] Comment on above: Performed By: #### L AB46, [id number], LAB17 ####Underwriting Internship: REINIER ZHU ([id number])[facility] (SBHLAB)[address] Creatinine [Mass/Vol] 0.64 mg/dL Low 0.66-1.25 [facility] Comment on above: Performed By: #### L AB46, [id number], LAB17 ####Underwriting Internship: REINIER ZHU ([id number])[facility] (SBHLAB)[address] GLOMERULAR FILTRATION RATE ML/MIN/1.73 SQ M.PREDICTED >90.0 Normal >60.0 [facility] Comment on above: Result Comment: Calc ulation based on the Chronic Kidney Disease Epidemiology Collaboration (CKD-EPI) equation refit without adjustment for race Performed By: #### L AB46, [id number], LAB17 ####Underwriting Internship: REINIER ZHU ([id number])[facility] LAWANDAN (SBHLAB)[address] Glucose [Mass/Vol] 97 mg/dL Normal 70-100 [facility] Comment on above: Performed By: #### L AB46, [id number], LAB17 ####Underwriting Internship: REINIER ZHU ([id number])[facility] [place] (SBHLAB)[address] Potassium [Moles/Vol] 4.2 mmol/L Normal 3.5-5.1 [facility] Comment on above: Performed By: #### L AB46, [id number], LAB17 ####Underwriting Internship: REINIER ZHU ([id number])[facility] ([facility])[address] Protein [Mass/Vol] 7.3 g/dL Normal 6.3-8.2 [facility] Comment on above: Performed By: #### L AB46, [id number], LAB17 ####Underwriting Internship: REINIER ZHU ([id number])[facility]BCIB[facility]OSPITALN (SBHLAB)[address] Sodium [Moles/Vol] 139 mmol/L Normal 135-145 [facility] Comment on above: Performed By: #### L AB46, [id number], LAB17 ####Underwriting Internship: REINIER ZHU ([id number])[facility] [place] (SBHLAB)[address] [place] [address] [place] Urea nitrogen [Mass/Vol] 7 mg/dL Low 9-20 [facility] Comment on above: Performed By: #### L AB46, [id number], LAB17 ####Underwriting Internship: REINIER ZHU ([id number])[facility] ([facility])[address] Comprehensive metabolic 1998 panelon 11-27-2023 Albumin [Mass/Vol] 4.3 g/dL 3.5 - 5.0 g/dL [facility] ALP [Catalytic activity/Vol] 99 U/L 38 - 126 U/L [facility] ALT [Catalytic activity/Vol] 27 U/L 0 - 49 U/L [facility] Anion gap [Moles/Vol] 11 mmol/L 3 - 13 mmol/L [facility] AST [Catalytic activity/Vol] 42 U/L 15 - 46 U/L [facility] Bilirubin [Mass/Vol] 0.4 mg/dL 0.2 - 1 .3 mg/dL [facility] Calcium [Mass/Vol] 8.7 mg/dL 8.4 - 10. 4 mg/dL [facility] Chloride [Moles/Vol] 101 mmol/L 98 - 10 7 mmol/L [facility] CO2 [Moles/Vol] 27 mmol/L 22 - 30 mmol/L [facility] Creatinine [Mass/Vol] 0.64 mg/dL Low 0.66 - 1.25 mg/dL [facility] GFR/1.73 sq M.predicted (S/P/Bld) [Vol rate/Area] - PINF [facility] Comment on above: Calculation based on the Chronic Kidney Disease Epidemiology Collaboration (CKD-EPI) equation refit without adjustment for race Glucose [Mass/Vol] 97 mg/dL 70 - 100 mg/dL [facility] Potassium [Moles/Vol] 4.2 mmol/L 3.5 - 5.1 mmol/L [facility] Protein [Mass/Vol] 7.3 g/dL 6.3 - 8.2 g/dL [facility] Sodium [Moles/Vol] 139 mmol/L 135 - 145 mmol/L [facility] Urea nitrogen [Mass/Vol] 7 mg/dL Low 9 - 20 mg/dL [facility] DRUGS OF ABUSEon 11-27-2023 AMPHETAMINE SCREEN Negative Normal [facility] Comment on above: Performed By: #### L [id number] ####Underwriting Internship: REINIER ZHU ([id number])[facility] (SBHLAB)[address] [place] [address] BARBITURATES SCREEN Negative Normal [facility] Comment on above: Performed By: #### L [id number] ####Underwriting Internship: REINIER ZHU ([id number])[facility]BCIB[facility]ITAL[facility] (SBHLAB)[address] BENZODIAZEPINE SCREEN Negative Normal [facility] Comment on above: Performed By: #### L [id number] ####Underwriting Internship: REINIER MARKO ([id number])[facility]BCIBOL[facility]ITAL[facility] (SBHLAB)[address] COCAINE METAB. SCREEN Negative Normal [facility] Comment on above: Performed By: #### L [id number] ####Underwriting Internship: REINIER OVIEDOVINAYAK ([id number])[facility] BARBCIBOL[facility]ITALN (SBHLAB)[address] METHADONE SCREEN Negative Normal [facility] Comment on above: Performed By: #### L [id number] ####Underwriting Internship: REINIER OVIEDOVINAYAK ([id number])[facility] BARBCIBOL[facility]ITALN (SBHLAB)[address] OPIATES SCREEN Negative Normal [facility] Comment on above: Performed By: #### L [id number] ####Underwriting Internship: REINIER MORINROGER ([id number])[facility] BARBCIBOL[facility]ITALN (SBHLAB)[address] OXYCODONE SCREEN Negative Normal [facility] Comment on above: Performed By: #### L [id number] ####Underwriting Internship: REINIER MORINROGER ([id number])[facility] (SBHLAB)[address] PHENCYCLIDINE SCREEN Negative Normal [facility] Comment on above: Result Comment: ORDE R COMMENTS:The expected value for all of the drugs listed above is Negative.The following drugs or drug groups have been screened for by Immunoassay at the following thresholds:Amphetamine class (1000 ng/mL)Barbiturates (200 ng/mL)Benzodiazepines (200 ng/mL)Cocaine (300 ng/mL)Methadone (300 ng/mL)Opiates (300 ng/mL)Oxycodone (100 ng/mL)PCP (25 ng/mL)NOTE: These results are for medical treatment only. Analysis performed using non-forensic procedures. POSITIVE results are NOT confirmed by a more specificalternative method unless requested. If confirmation is needed, request confirmation under separate order. Performed By: #### L [id number] ####Underwriting Internship: REINIER ZHU ([id number])[facility] LOPEZCIBOLA GENERAL HOSPITALAnum (SBHLAB)[address] ED Nursing Noteon 11-27-2023 ED Nursing Note Normal [facility] ED Nursing Note Detox rules read and signed by patient. Witnessed by this RN. Larry Avila RN 11/27/23 2305 Normal [facility] ED Provider Noteon ED Provider Note Normal [facility] ETHANOLon 11-27-2023 ETHANOL IN SER/PLAS 0.297 g/dL High 0.000-0. 01 0 [facility] Comment on above: Result Comment: [place] Lagunas COMMENTS:NOTE: This result is for medical treatment only. Analysis performed using non-forensic procedures. Performed By: #### L AB46, [id number], LAB17 ####Underwriting Internship: REINIER ZHU ([id number])[facility])[address] Ethanol (Bld) [Mass/Vol]on 0 11-27-2023 Ethanol [Mass/Vol] 0.297 g/dL High 0.000 - 0.010 g/dL [facility] Laboratory - Chemistry and C hemistry - challengeon 11-27-2023 Magnesium [Mass/Vol] 2.0 mg/dL 1.6 - 2 .3 mg/dL [facility] Laboratory - Drug toxicology Ordered By: Mitul Olson on 11-27-2023 Amphetamines Screen method >1000 ng/mL Ql (U) Negative [facility] Barbiturates Screen method >200 ng/mL Ql (U) Negative [facility] Benzodiazepines Ql (U) Negative [facility] Methadone Screen Ql (U) Negative [facility] Opiates Screen Ql (U) Negative [facility] oxyCODONE Ql (U) Negative [facility] Phencyclidine Ql (U) Negative [facility] Laboratory - Microbiology an d Antimicrobial susceptibilityOrdered By: Maite Fleming on 11-27-2023 SARS-CoV-2 (COVID-19) Ag IA.rapid Ql (Resp) Negative Negative [facility] Comment on above: A negative result do es not rule out the possibility of SARS-CoV-2 infection. NAAT-based methods should be considered for symptomatic patients presenting greater than seven days after onset of symptoms. Method: Lateral flow immunoassay. Fact sheets for healthcare providers and patients can be found at the following sites: https://www.fda.gov/media/211144/download https://www.fda.gov/media/601811/download MAGNESIUMon 11-27-2023 Magnesium [Mass/Vol] 2.0 mg/dL Normal 1.6-2.3 [facility] Comment on above: Performed By: #### L AB46, [id number], LAB17 ####Underwriting Internship: REINIER ZHU ([id number])[facility] HOYT ([facility])[address] [place] [address] Magnesium [Mass/Vol]on 11-26 Interpretation and review of laboratory results Normal [facility] No Panel Informationon 11-26 Interpretation and review of laboratory results Abnormal [facility] No Panel InformationOrdered By: Mitul Olson on 11-27-2023 COCAINE METAB. SCREEN Negative [facility] The expected value f or all of the drugs listed above is Negative. The following drugs or drug groups have been screened for by Immunoassay at the following thresholds: Amphetamine class (1000 ng/mL) Barbiturates (200 ng/mL) Benzodiazepines (200 ng/mL) Cocaine (300 ng/mL) Methadone (300 ng/mL) Opiates (300 ng/mL) Oxycodone (100 ng/mL) PCP (25 ng/mL) NOTE: These results are for medical treatment only. Analysis performed using non-forensic procedures. POSITIVE results are NOT confirmed by a more specific alternative method unless requested. If confirmation is needed, request confirmation under separate order. [facility] SARS-COV-2 ANTIGENon 024 SARS-COV-2 ANTIGEN Normal [facility] Comment on above: Performed By: #### L [id number] ####Underwriting Internship: REINIER ZHU ([id number])[facility] VIRAJGHADA (SBHLAB)[address] SARS-CoV-2 (COVID-19) Ag IA. rapid Ql (Resp)Ordered By: Maite Fleming on 11-27-2023 Interpretation and review of laboratory results Normal [facility] Laboratory - Drug toxicology on 07-30-2023 PHENobarbital [Mass/Vol] 14.9 ug/mL 10.0 - 40.0 ug/mL [facility] No Panel Informationon 07-29 Interpretation and review of laboratory results Normal [facility] Basic metabolic 1998 panelon 07-27-2023 Anion gap [Moles/Vol] 12 mmol/L 3 - 13 mmol/L [facility] Calcium [Mass/Vol] 8.9 mg/dL 8.4 - 10. 4 mg/dL [facility] Chloride [Moles/Vol] 98 mmol/L 98 - 10 7 mmol/L [facility] CO2 [Moles/Vol] 26 mmol/L 22 - 30 mmol/L [facility] Creatinine [Mass/Vol] 0.62 mg/dL Low 0.66 - 1.25 mg/dL [facility] GFR/1.73 sq M.predicted MDRD (S/P/Bld) [Vol rate/Area] - PINF [facility] Comment on above: Calculation based on the Chronic Kidney Disease Epidemiology Collaboration (CKD-EPI) equation refit without adjustment for race Glucose [Mass/Vol] 128 mg/dL High 70 - 100 mg/dL [facility] Potassium [Moles/Vol] 3.9 mmol/L 3.5 - 5.1 mmol/L [facility] Sodium [Moles/Vol] 136 mmol/L 135 - 145 mmol/L [facility] Urea nitrogen [Mass/Vol] 4 mg/dL Low 9 - 20 mg/dL [facility] CBC W Auto Differential pane l (Bld)Ordered By: Aurora Garcia on 07-27-2023 Basophils (Bld) [#/Vol] 0.1 10*3/uL 0.0 - 0.2 10*3/uL [facility] Basophils/100 WBC (Bld) 0.8 % 0.0 - 2.0 % [facility] Eosinophils (Bld) [#/Vol] 0.1 10*3/uL 0.0 - 0.5 10*3/uL [facility] Eosinophils/100 WBC (Bld) 1.7 % 0.0 - 6.0 % [facility] Erythrocyte distribution width (RBC) [Ratio] 13.0 % 11.5 - 15.0 % [facility] Hematocrit (Bld) [Volume fraction] 46.2 % 40.0 - 52.0 % [facility] Hemoglobin (Bld) [Mass/Vol] 16.3 g/dL 13.0 - 18.0 g/dL [facility] Immature granulocytes (Bld) [#/Vol] 0.0 10*3/uL NINF - 0.1 10*3/uL [facility] Immature granulocytes/100 WBC (Bld) 0.3 % 0.0 - 2.0 % [facility] Interpretation and review of laboratory results Abnormal [facility] Lymphocytes (Bld) [#/Vol] 1.7 10*3/uL 1.0 - 4.3 10*3/uL [facility] Lymphocytes/100 WBC (Bld) 27.2 % 15.0 - 45.0 % [facility] MCH (RBC) [Entitic mass] 34.0 pg 26.0 - 34.0 pg [facility] MCHC (RBC) [Mass/Vol] 35.3 % 30.5 - 36.0 % [facility] MCV (RBC) [Entitic vol] 96.5 fL 77.0 - 99.0 fL [facility] Monocytes (Bld) [#/Vol] 0.7 10*3/uL 0.0 - 0.9 10*3/uL [facility] Monocytes/100 WBC (Bld) 11.0 % 5.0 - 13.0 % [facility] Neutrophils (Bld) [#/Vol] 3.8 10*3/uL 1.8 - 7.5 10*3/uL [facility] Neutrophils/100 WBC (Bld) 59.0 % 38.0 - 82.0 % [facility] Nucleated RBC/100 WBC (Bld) [Ratio] 0.0 % [facility] Platelet mean volume (Bld) [Entitic vol] 8.6 fL Low 9.0 - 12.7 fL [facility] Platelets (Bld) [#/Vol] 296 10*3/uL 140 - 440 10*3/uL [facility] RBC (Bld) [#/Vol] 4.79 10*6/uL 4.40 - 5.90 10*6/uL [facility] WBC (Bld) [#/Vol] 6.4 10*3/uL 3.6 - 10.7 10*3/uL [facility] CT Abdomen and Pelvis W cont rast Main 07-27-2023 1. No acute findings. 2. Hepatic steatosis. 3. Sigmoid colon diverticulosis without evidence of diverticulitis. Report Dictated on Electronically Signed By: Sen Bear MD Electronically Signed Date/Time: 07/27/2023 8:52 PM EDT [facility] Patient Name: MARIA DE JESUS SÁNCHEZ : 1965 Exam Date/Time: 07/27/2023 20:33 Procedure: CT ABDOMEN PELVIS W CONTRAST Ordering Provider: ABRAHAM JONATHAN Reason For Exam: Abdominal pain, acute, nonlocalized CT ABDOMEN AND PELVIS WITH CONTRAST CLINICAL INDICATION: Abdominal pain, acute, nonlocalized TECHNIQUE: CT scan of the abdomen and pelvis, with IV contrast. Multiplanar reformations. Dose reduction was employed with automated exposure control. COMPARISON: May,. FINDINGS: Abdomen: Visualized lung bases grossly unremarkable. No radiopaque gallstones. Liver again shows diffusely decreased attenuation without focal abnormality. Spleen without significant abnormality. Pancreas without significant abnormality. Kidneys without significant abnormality. Adrenal glands without significant abnormality. Pelvis: Diverticular change in the sigmoid colon. Remainder of bowel grossly unremarkable. 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 Appendix not confidently identified. No significant, free peritoneal fluid or apparent adenopathy. Aortoiliac calcification without aneurysmal dilatation. Axial skeleton grossly intact, with degenerative change scattered in the thoracic and lumbar spine. [facility] Sen Bear MD - 07/27/2023 Patient Name: MARIA DE JESUS HOGAN : 1965 Exam Date/Time: 07/27/2023 20:33 Procedure: CT ABDOMEN PELVIS W CONTRAST Ordering Provider: ABRAHAM JONATHAN Reason For Exam: Abdominal pain, acute, nonlocalized CT ABDOMEN AND PELVIS WITH CONTRAST CLINICAL INDICATION: Abdominal pain, acute, nonlocalized TECHNIQUE: CT scan of the abdomen and pelvis, with IV contrast. Multiplanar reformations. Dose reduction was employed with automated exposure control. COMPARISON: May,. FINDINGS: Abdomen: Visualized lung bases grossly unremarkable. No radiopaque gallstones. Liver again shows diffusely decreased attenuation without focal abnormality. Spleen without significant abnormality. Pancreas without significant abnormality. Kidneys without significant abnormality. Adrenal glands without significant abnormality. Pelvis: Diverticular change in the sigmoid colon. Remainder of bowel grossly unremarkable. 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 Appendix not confidently identified. No significant, free peritoneal fluid or apparent adenopathy. Aortoiliac calcification without aneurysmal dilatation. Axial skeleton grossly intact, with degenerative change scattered in the thoracic and lumbar spine. IMPRESSION: 1. No acute findings. 2. Hepatic steatosis. 3. Sigmoid colon diverticulosis without evidence of diverticulitis. Report Dictated on Electronically Signed By: Sen Bear MD Electronically Signed Date/Time: 07/27/2023 8:52 PM EDT [facility] Radiology Study observation (narrative) [facility] CT Abdomen and Pelvis W cont rast IVOrdered By: eSn Bear on 07-27-2023 [facility] [employer] Work Phone: Ethanol (Bld) [Mass/Vol]Orde red By: Jyotsna Peralta on 07-27-2023 Ethanol [Mass/Vol] 0.337 g/dL Critically high 0.000 - 0.010 g/dL [facility] Interpretation and review of laboratory results Abnormal [facility] Hepatic function 2000 panelo n 07-27-2023 Albumin [Mass/Vol] 4.5 g/dL 3.5 - 5.0 g/dL [facility] ALP [Catalytic activity/Vol] 113 U/L 38 - 126 U/L [facility] ALT [Catalytic activity/Vol] 77 U/L High 0 - 49 U/L [facility] AST [Catalytic activity/Vol] 102 U/L High 15 - 46 U/L [facility] Bilirubin [Mass/Vol] 0.6 mg/dL 0.2 - 1 .3 mg/dL [facility] Bilirubin.conjugated [Mass/Vol] 0.0 mg/dL 0.0 - 0.3 mg/dL [facility] Protein [Mass/Vol] 7.6 g/dL 6.3 - 8.2 g/dL [facility] Laboratory - Chemistry and C hemistry - challengeon 07-27-2023 Lipase [Catalytic activity/Vol] 282 U/L 23 - 300 U/L [facility] Laboratory - Drug toxicology on 07-27-2023 Amphetamines Screen method >1000 ng/mL Ql (U) Negative [facility] Barbiturates Screen method >200 ng/mL Ql (U) Positive [facility] Benzodiazepines Ql (U) Negative [facility] Methadone Screen Ql (U) Negative [facility] Opiates Screen Ql (U) Negative [facility] oxyCODONE Ql (U) Negative [facility] Phencyclidine Ql (U) Negative [facility] Laboratory - Microbiology an d Antimicrobial susceptibilityon 07-27-2023 SARS-CoV-2 (COVID-19) Ag IA.rapid Ql (Resp) Negative Negative [facility] Comment on above: A negative result do es not rule out the possibility of SARS-CoV-2 infection. NAAT-based methods should be considered for symptomatic patients presenting greater than seven days after onset of symptoms. Method: Lateral flow immunoassay. Fact sheets for healthcare providers and patients can be found at the following sites: https://www.fda.gov/media/506502/download https://www.fda.gov/media/664600/download Lipase [Catalytic activity/V ol]on 07-27-2023 Interpretation and review of laboratory results Normal [facility] No Panel Informationon 07-26 COCAINE METAB. SCREEN Negative [facility] The expected value f or all of the drugs listed above is Negative. The following drugs or drug groups have been screened for by Immunoassay at the following thresholds: Amphetamine class (1000 ng/mL) Barbiturates (200 ng/mL) Benzodiazepines (200 ng/mL) Cocaine (300 ng/mL) Methadone (300 ng/mL) Opiates (300 ng/mL) Oxycodone (100 ng/mL) PCP (25 ng/mL) NOTE: These results are for medical treatment only. Analysis performed using non-forensic procedures. POSITIVE results are NOT confirmed by a more specific alternative method unless requested. If confirmation is needed, request confirmation under separate order. [facility] Interpretation and review of laboratory results Abnormal [facility] P [place] 66 degrees [facility] VA Interval 156 ms [facility] QRS [place] 68 degrees [facility] QRSD Interval 96 ms [facility] QT Interval 358 ms [facility] QTC Interval 461 ms [facility] T Wave [place] 46 degrees [facility] Sinus rhythm Anterior infarct, age indeterminate Electronically Signed On 07-27-2023 19:06:02 EDT by Triston Abraham CV Triston Lehman MD - 07/27/2023 IMPRESSION: Sinus rhythm Anterior infarct, age indeterminate Electronically Signed On 07-27-2023 19:06:02 EDT by Triston Abraham [facility] SARS-CoV-2 (COVID-19) Ag IA. rapid Ql (Resp)on 07-27-2023 Interpretation and review of laboratory results Normal [facility] Vital signson 07-27-2023 Heart rate 99 /min bpm [facility] CBC W Auto Differential pane l (Bld)Ordered By: Chip Clinton on 07-08-2023 Basophils (Bld) [#/Vol] 0.0 10*3/uL 0.0 - 0.2 10*3/uL [facility] Basophils/100 WBC (Bld) 0.7 % 0.0 - 2.0 % [facility] Eosinophils (Bld) [#/Vol] 0.1 10*3/uL 0.0 - 0.5 10*3/uL [facility] Eosinophils/100 WBC (Bld) 1.0 % 0.0 - 6.0 % [facility] Erythrocyte distribution width (RBC) [Ratio] 13.7 % 11.5 - 15.0 % [facility] Hematocrit (Bld) [Volume fraction] 45.6 % 40.0 - 52.0 % [facility] Hemoglobin (Bld) [Mass/Vol] 16.1 g/dL 13.0 - 18.0 g/dL [facility] Immature granulocytes (Bld) [#/Vol] 0.0 10*3/uL NINF - 0.1 10*3/uL [facility] Immature granulocytes/100 WBC (Bld) 0.2 % 0.0 - 2.0 % [facility] Interpretation and review of laboratory results Abnormal [facility] Lymphocytes (Bld) [#/Vol] 1.7 10*3/uL 1.0 - 4.3 10*3/uL [facility] Lymphocytes/100 WBC (Bld) 29.7 % 15.0 - 45.0 % [facility] MCH (RBC) [Entitic mass] 34.0 pg 26.0 - 34.0 pg [facility] MCHC (RBC) [Mass/Vol] 35.3 % 30.5 - 36.0 % [facility] MCV (RBC) [Entitic vol] 96.2 fL 77.0 - 99.0 fL [facility] Monocytes (Bld) [#/Vol] 0.5 10*3/uL 0.0 - 0.9 10*3/uL [facility] Monocytes/100 WBC (Bld) 9.0 % 5.0 - 13.0 % [facility] Neutrophils (Bld) [#/Vol] 3.5 10*3/uL 1.8 - 7.5 10*3/uL [facility] Neutrophils/100 WBC (Bld) 59.4 % 38.0 - 82.0 % [facility] Nucleated RBC/100 WBC (Bld) [Ratio] 0.0 % [facility] Platelet mean volume (Bld) [Entitic vol] 8.8 fL Low 9.0 - 12.7 fL [facility] Platelets (Bld) [#/Vol] 240 10*3/uL 140 - 440 10*3/uL [facility] RBC (Bld) [#/Vol] 4.74 10*6/uL 4.40 - 5.90 10*6/uL [facility] WBC (Bld) [#/Vol] 5.9 10*3/uL 3.6 - 10.7 10*3/uL [facility] Comprehensive metabolic 1998 panelon 07-08-2023 Albumin [Mass/Vol] 4.5 g/dL 3.5 - 5.0 g/dL [facility] ALP [Catalytic activity/Vol] 113 U/L 38 - 126 U/L [facility] ALT [Catalytic activity/Vol] 52 U/L High 0 - 49 U/L [facility] Anion gap [Moles/Vol] 13 mmol/L 3 - 13 mmol/L [facility] AST [Catalytic activity/Vol] 79 U/L High 15 - 46 U/L [facility] Bilirubin [Mass/Vol] 0.9 mg/dL 0.2 - 1 .3 mg/dL [facility] Calcium [Mass/Vol] 9.0 mg/dL 8.4 - 10. 4 mg/dL [facility] Chloride [Moles/Vol] 94 mmol/L Low 98 - 10 7 mmol/L [facility] CO2 [Moles/Vol] 26 mmol/L 22 - 30 mmol/L [facility] Creatinine [Mass/Vol] 0.69 mg/dL 0.66 - 1.25 mg/dL [facility] GFR/1.73 sq M.predicted MDRD (S/P/Bld) [Vol rate/Area] - PINF [facility] Comment on above: Calculation based on the Chronic Kidney Disease Epidemiology Collaboration (CKD-EPI) equation refit without adjustment for race Glucose [Mass/Vol] 125 mg/dL High 70 - 100 mg/dL [facility] Interpretation and review of laboratory results Abnormal [facility] Potassium [Moles/Vol] 4.5 mmol/L 3.5 - 5.1 mmol/L [facility] Protein [Mass/Vol] 8.0 g/dL 6.3 - 8.2 g/dL [facility] Sodium [Moles/Vol] 134 mmol/L Low 135 - 145 mmol/L [facility] Urea nitrogen [Mass/Vol] 4 mg/dL Low 9 - 20 mg/dL [facility] Ethanol (Bld) [Mass/Vol]Orde red By: Shellie Morel on 07-08-2023 Ethanol [Mass/Vol] 0.358 g/dL Critically high 0.000 - 0.010 g/dL [facility] Interpretation and review of laboratory results Abnormal [facility] Laboratory - Drug toxicology on 07-08-2023 Amphetamines Screen method >1000 ng/mL Ql (U) Negative [facility] Barbiturates Screen method >200 ng/mL Ql (U) Negative [facility] Benzodiazepines Ql (U) Negative [facility] Methadone Screen Ql (U) Negative [facility] Opiates Screen Ql (U) Negative [facility] oxyCODONE Ql (U) Negative [facility] Phencyclidine Ql (U) Negative [facility] Laboratory - Microbiology an d Antimicrobial susceptibilityOrdered By: Mitul Olson on 07-08-2023 SARS-CoV-2 (COVID-19) Ag IA.rapid Ql (Resp) Negative Negative [facility] Comment on above: A negative result do es not rule out the possibility of SARS-CoV-2 infection. NAAT-based methods should be considered for symptomatic patients presenting greater than seven days after onset of symptoms. Method: Lateral flow immunoassay. Fact sheets for healthcare providers and patients can be found at the following sites: https://www.fda.gov/media/400291/download https://www.[employer].gov/media/227342/download No Panel Informationon 07-07 COCAINE METAB. SCREEN Negative [facility] The expected value f or all of the drugs listed above is Negative. The following drugs or drug groups have been screened for by Immunoassay at the following thresholds: Amphetamine class (1000 ng/mL) Barbiturates (200 ng/mL) Benzodiazepines (200 ng/mL) Cocaine (300 ng/mL) Methadone (300 ng/mL) Opiates (300 ng/mL) Oxycodone (100 ng/mL) PCP (25 ng/mL) NOTE: These results are for medical treatment only. Analysis performed using non-forensic procedures. POSITIVE results are NOT confirmed by a more specific alternative method unless requested. If confirmation is needed, request confirmation under separate order. [facility] P [place] 58 degrees [facility] VA Interval 149 ms [facility] QRS [place] 81 degrees [facility] QRSD Interval 105 ms [facility] QT Interval 360 ms [facility] QTC Interval 474 ms [facility] T Wave [place] 39 degrees [facility] Sinus tachycardia Probable left atrial enlargement No previous ECG available for comparison Electronically Signed On 07-08-2023 18:36:57 EDT by Catalino Mujica CV Catalino Hernandez MD - 07/08/2023 IMPRESSION: Sinus tachycardia Probable left atrial enlargement No previous ECG available for comparison Electronically Signed On 07-08-2023 18:36:57 EDT by Catalino Mujica [facility] SARS-CoV-2 (COVID-19) Ag IA. rapid Ql (Resp)Ordered By: Mitul Olson on 07-08-2023 Interpretation and review of laboratory results Normal [facility] Vital signson 07-08-2023 Heart rate 104 /min bpm [facility] - Drug toxicology Ordered By: Bipin Wilson on 05-21-2023 Amphetamines Ql (U) Negative Negative [facility] Benzodiazepines Ql (U) Negative Negative [facility] Cocaine Ql (U) Negative Negative [facility] Ethanol [Mass/Vol] Positive Negative [facility] Methadone Ql (U) Negative Negative [facility] Opiates Ql (U) Negative Negative [facility] No Panel InformationOrdered By: Keila Marina on 05-21-2023 P [place] 78 degrees [facility]: VA Interval 154 ms [employer] Work Phone: QRS [place] 75 degrees [employer] Work Phone: QRSD Interval 105 ms [employer] Work Phone: QT Interval 381 ms [employer] Work Phone: QTC Interval 484 ms [employer] Work Phone: [phone] T Wave [place] 60 degrees [employer] Work Phone: [employer] Work Phone: No Panel Informationon 05-21 Sinus rhythm Consider left atrial enlargement Abnormal T, consider ischemia, anterior leads no significant change from prior Electronically Signed On 05-21-2023 13:12:25 EST by Keila Gomez [facility], - 05/21/2023 IMPRESSION: Sinus rhythm Consider left atrial enlargement Abnormal T, consider ischemia, anterior leads no significant change from prior Electronically Signed On 05-21-2023 13:12:25 EST by Keila Rcwilcortez [facility] ETHYL GLUCURONIDE, URINE Positive Negative [facility] Ethyl Glucuronide sainz s been screened by Immunoassay at a 500 ng/mL threshold. POSITIVE results are not confirmed by a more specific alternative method unless requested. If confirmation is needed, request confirmation under separate order. NOTE: These results are for medical treatment only. Analysis performed using non-forensic procedures. This test has not been cleared by the US Food and Drug Administration (FDA). The FDA has determined that such clearance or approval is not necessary. The performance characteristics have been determined by the clinical laboratories of [facility]. [facility] No Panel InformationOrdered By: Bipin Wilson on 05-21-2023 BARBITURATES Negative Negative [facility] BUPRENORPHINE SCREEN Negative Negative [facility] FENTANYL Negative Negative [facility] OXYCODONE/OXYMORPHONE Negative Negative [facility] PCP Negative Negative [facility] THC Negative Negative [facility] The expected value f or the drugs listed above is Negative. The following drugs or drug groups have been screened for by Immunoassay at the following thresholds: Amphetamine class(1000ng/mL) Barbituates(200ng/mL) Benzodiazepines(200ng/mL) Cocaine(300ng/mL) Ethanol (50 ng/mL) Methadone(300ng/mL) Opiates(300ng/mL) Oxycodone(100ng/mL) PCP(25ng/mL) Buprenorphine(5ng/mL) THC(50ng/mL) Fentanyl(1ng/mL) Positive results are NOT confirmed by a more specific alternative method unless requested. If confirmation is needed, request confirmation under separate order. NOTE: These results are for medical treatment only. Analysis performed using non-forensic procedures. [facility] Vital signsOrdered By: Keila Marina on 05-21-2023 Heart rate 97 /min bpm [facility] Work Phone: CBC W Auto Differential pane l (Bld)Ordered By: Mitul Olson on 05-20-2023 Basophils (Bld) [#/Vol] 0.1 10*3/uL 0.0 - 0.2 10*3/uL [facility] Basophils/100 WBC (Bld) 1.3 % 0.0 - 2.0 % [facility] Eosinophils (Bld) [#/Vol] 0.1 10*3/uL 0.0 - 0.5 10*3/uL [facility] Eosinophils/100 WBC (Bld) 1.1 % 1.0 - 6.0 % [facility] Erythrocyte distribution width (RBC) [Ratio] 14.2 % 11.5 - 14.5 % [facility] Hematocrit (Bld) [Volume fraction] 47.4 % 40.0 - 52.0 % [facility] Hemoglobin (Bld) [Mass/Vol] 16.3 g/dL 13.0 - 18.0 g/dL [facility] Interpretation and review of laboratory results Abnormal [facility] Lymphocytes (Bld) [#/Vol] 1.4 10*3/uL 1.0 - 4.3 10*3/uL [facility] Lymphocytes/100 WBC (Bld) 26.0 % 20.0 - 40.0 % [facility] MCH (RBC) [Entitic mass] 33.6 pg 26.0 - 34.0 pg [facility] MCHC (RBC) [Mass/Vol] 34.4 % 32.0 - 36.0 % [facility] MCV (RBC) [Entitic vol] 97.7 fL 80.0 - 98.0 fL [facility] Monocytes (Bld) [#/Vol] 0.8 10*3/uL 0.0 - 0.8 10*3/uL [facility] Monocytes/100 WBC (Bld) 15.2 % High 2.0 - 10.0 % [facility] Neutrophils (Bld) [#/Vol] 3.1 10*3/uL 1.8 - 7.0 10*3/uL [facility] Neutrophils/100 WBC (Bld) 56.4 % 40.0 - 80.0 % [facility] Nucleated RBC/100 WBC (Bld) [Ratio] 0.1 % [facility] Platelet mean volume (Bld) [Entitic vol] 7.0 fL Low 7.4 - 12.4 fL [facility] Platelets (Bld) [#/Vol] 199 10*3/uL 140 - 440 10*3/uL [facility] RBC (Bld) [#/Vol] 4.86 10*6/uL 4.40 - 5.90 10*6/uL [facility] WBC (Bld) [#/Vol] 5.5 10*3/uL 3.6 - 10.7 10*3/uL [facility] CT Abdomen and Pelvis W cont rast Main 05-20-2023 No acute findings. Report Dictated on Electronically Signed By: Johnson Haro MD Electronically Signed Date/Time: 05/20/2023 10:13 PM [facility] [place] [facility] Patient Name: MARIA DE JESUS SÁNCHEZ : 1965 Exam Date/Time: 05/20/2023 22:04 Procedure: CT ABDOMEN PELVIS W CONTRAST Ordering Provider: LUNA QUENTIN Reason For Exam: Abdominal pain, acute, nonlocalized CT abdomen and pelvis with contrast HISTORY: Abdominal pain Protocol: 3 mm axial images with intravenous contrast Dose reduction was employed with automated exposure control. COMPARISON: 09/10/2022 Fatty infiltration of the liver. The gallbladder, spleen, pancreas, adrenals and kidneys are normal. No evidence of bowel inflammation or bowel obstruction. No free fluid. Bladder is unremarkable. [facility] Johnson Haro MD - 05/20/2023 Patient Name: MARIA DE JESUS HOGAN : 1965 Exam Date/Time: 05/20/2023 22:04 Procedure: CT ABDOMEN PELVIS W CONTRAST Ordering Provider: LUNA QUENTIN Reason For Exam: Abdominal pain, acute, nonlocalized CT abdomen and pelvis with contrast HISTORY: Abdominal pain Protocol: 3 mm axial images with intravenous contrast Dose reduction was employed with automated exposure control. COMPARISON: 09/10/2022 Fatty infiltration of the liver. The gallbladder, spleen, pancreas, adrenals and kidneys are normal. No evidence of bowel inflammation or bowel obstruction. No free fluid. Bladder is unremarkable. IMPRESSION: No acute findings. Report Dictated on Electronically Signed By: Johnson Haro MD Electronically Signed Date/Time: 05/20/2023 10:13 PM EST [facility] Radiology Study observation (narrative) [facility] CT Abdomen and Pelvis W cont rast IVOrdered By: Johnson Haro on 05-20-2023 [employer] [facility] Work Phone: Comprehensive metabolic 1998 panelon 05-20-2023 Albumin [Mass/Vol] 4.2 g/dL 3.5 - 5.0 g/dL [facility] ALP [Catalytic activity/Vol] 104 U/L 38 - 126 U/L [facility] ALT [Catalytic activity/Vol] 140 U/L High 0 - 49 U/L [facility] Anion gap [Moles/Vol] 17 mmol/L High 3 - 13 mmol/L [facility] AST [Catalytic activity/Vol] 123 U/L High 15 - 46 U/L [facility] Bilirubin [Mass/Vol] 0.6 mg/dL 0.2 - 1 .3 mg/dL [facility] Calcium [Mass/Vol] 9.0 mg/dL 8.4 - 10. 4 mg/dL [facility] Chloride [Moles/Vol] 92 mmol/L Low 98 - 10 7 mmol/L [facility] CO2 [Moles/Vol] 21 mmol/L Low 22 - 30 mmol/L [facility] Creatinine [Mass/Vol] 0.60 mg/dL Low 0.66 - 1.25 mg/dL [facility] GFR/1.73 sq M.predicted MDRD (S/P/Bld) [Vol rate/Area] - PINF [facility] Comment on above: Calculation based on the Chronic Kidney Disease Epidemiology Collaboration (CKD-EPI) equation refit without adjustment for race Glucose [Mass/Vol] 119 mg/dL High 70 - 100 mg/dL [facility] Interpretation and review of laboratory results Abnormal [facility] Potassium [Moles/Vol] 3.8 mmol/L 3.5 - 5.1 mmol/L [facility] Protein [Mass/Vol] 7.4 g/dL 6.3 - 8.2 g/dL [facility] Sodium [Moles/Vol] 130 mmol/L Low 135 - 145 mmol/L [facility] Urea nitrogen [Mass/Vol] 5 mg/dL Low 9 - 20 mg/dL [facility] Laboratory - Chemistry and C hemistry - challengeon 05-20-2023 Base excess Calc (BldV) [Moles/Vol] -1.0000 mmol/L -3 - 3 mmol/L [facility] CO2 (BldV) [Partial pressure] 48.3 mm[Hg] [facility] HCO3 (Bld) [Moles/Vol] 25.6 mmol/L 23.0 - 27.0 mmol/L [facility] Oxygen (BldV) [Partial pressure] 53.3 mm[Hg] mm Hg [facility] pH (BldV) 7.333 [pH] 7.330 - 7.430 pH [facility] Troponin I.cardiac [Mass/Vol] ng/mL NINF - 0.034 ng/mL [facility] Lipase [Catalytic activity/Vol] 230 U/L 23 - 300 U/L [facility] Lipase [Catalytic activity/V ol]on 05-20-2023 Interpretation and review of laboratory results Normal [facility] No Panel Informationon 05-20 FIO2 [facility] Performed by: [facility], [address] [place] [id number] CLIA ID: [id number] [facility] Radiology Study observation (narrative) [facility] Troponin I.cardiac [Mass/Vol ]on 05-20-2023 Interpretation and review of laboratory results Normal [facility] Patients with high l evels of Biotin oral intake (ie >5 mg/day) may have falsely decreased Troponin levels. [facility] Urinalysis complete panel (U )Ordered By: Rebeca Rhodes on 05-20-2023 Bilirubin Ql (U) Negative Negative mg/dL [facility] Clarity (U) Clear Clear [facility] Color (U) Colorless Lt. Yellow [facility] Glucose Ql (U) Normal Normal (<70) mg/dL [facility] Hemoglobin Ql (U) Negative Negative mg/dL [facility] Interpretation and review of laboratory results Abnormal [facility] Ketones (U) [Mass/Vol] Negative Negat shiv mg/dL [facility] Leukocyte esterase Test strip Ql (U) Negative Negative Estefani/uL [facility] Nitrite Ql (U) Negative Negative [facility] pH (U) 5.5 [pH] 5.0 - 8.0 pH [facility] Protein (U) [Mass/Vol] Negative Negat shiv mg/dL [facility] Specific gravity (U) [Rel density] 1.003 Low 1.005 - 1.030 [facility] Urobilinogen (U) [Mass/Vol] Normal Normal (0-1) mg/dL [facility] Vital signson 05-20-2023 Oxygen saturation in Venous blood 84.6 % [facility] Comment on above: Performed by CLIA ID : [id number] [place], [place] ?Device: [id number] [employer] Rider ID: [id number] XR Chest Single viewon 05-20 FINDINGS AND IMPRESS ION: SUPPORT DEVICES: None OSSEOUS STRUCTURES: Degenerative changes in the thoracic spine. HEART AND MEDIASTINUM: The cardiomediastinal silhouette appears unchanged from the prior exam. LUNGS AND PLEURA: The lungs are clear.. Mildly elevated right hemidiaphragm, unchanged. No sizable pleural effusion. Report Dictated on Electronically Signed By: Harjinder Gotti MD Electronically Signed Date/Time: 05/20/2023 8:40 PM [facility] [place] [employer] Patient Name: MARIA DE JESUS SÁNCHEZ : 1965 Exam Date/Time: 05/20/2023 20:23 Procedure: XR CHEST 1 VIEW Ordering Provider: LUNA QUENTIN Reason For Exam: sob CHEST CLINICAL INDICATION: Dyspnea TECHNIQUE: AP portable chest COMPARISON: 09/06/2021 [facility] Harjinder Gotti MD - 05/20/2023 Patient Name: MARIA DE JESUS HOGAN : 1965 Exam Date/Time: 05/20/2023 20:23 Procedure: XR CHEST 1 VIEW Ordering Provider: LUNA QUENTIN Reason For Exam: sob CHEST CLINICAL INDICATION: Dyspnea TECHNIQUE: AP portable chest COMPARISON: 09/06/2021 IMPRESSION: FINDINGS AND IMPRESSION: SUPPORT DEVICES: None OSSEOUS STRUCTURES: Degenerative changes in the thoracic spine. HEART AND MEDIASTINUM: The cardiomediastinal silhouette appears unchanged from the prior exam. LUNGS AND PLEURA: The lungs are clear.. Mildly elevated right hemidiaphragm, unchanged. No sizable pleural effusion. Report Dictated on Electronically Signed By: Harjinder Gotti MD Electronically Signed Date/Time: 05/20/2023 8:40 PM [facility] Radiology Study observation (narrative) [employer] XR Chest Single viewOrdered By: Harjinder Gotti on 05-20-2023 [employer] Work Phone: XR Hand - left 3 Viewson No acute fracture or dislocation identified. Report Dictated on Electronically Signed By: Nate De La O MD Electronically Signed Date/Time: 03/19/2023 11:04 AM [facility] [place] [employer] Patient Name: MARIA DE JESUS SÁNCHEZ DOB: 1965 Exam Date/Time: 03/19/2023 11:01 Procedure: XR HAND 3+ VIEWS LEFT Ordering Provider: WADDELL MICHAEL Reason For Exam: pain third distal finger after slamming in car door LEFT HAND CLINICAL INDICATION: Pain after trauma AP, lateral, and oblique plain film views of the left hand were obtained. COMPARISON: None FINDINGS: There is no fracture or dislocation. Distal predominant interphalangeal joints osteoarthritic changes are noted throughout the hand. No bone lesion is identified. There is no soft tissue abnormality. [facility] RADIOLOGY SYSTEM Nate De La O MD - 03/19/2023 Patient Name: MARIA DE JESUS HOGAN : 1965 Exam Date/Time: 03/19/2023 11:01 Procedure: XR HAND 3+ VIEWS LEFT Ordering Provider: WADDELL MICHAEL Reason For Exam: pain third distal finger after slamming in car door LEFT HAND CLINICAL INDICATION: Pain after trauma AP, lateral, and oblique plain film views of the left hand were obtained. COMPARISON: None FINDINGS: There is no fracture or dislocation. Distal predominant interphalangeal joints osteoarthritic changes are noted throughout the hand. No bone lesion is identified. There is no soft tissue abnormality. IMPRESSION: No acute fracture or dislocation identified. Report Dictated on Electronically Signed By: Nate De La O MD Electronically Signed Date/Time: 03/19/2023 11:04 AM EST [employer] Radiology Study observation (narrative) [employer] XR Hand - left 3 ViewsOrdere d By: Nate De La O on 03-19-2023 [employer] Work Phone: Hepatic function 2000 panelo n 02-11-2023 Albumin [Mass/Vol] 4.1 g/dL 3.5 - 5.0 g/dL [employer] ALP [Catalytic activity/Vol] 86 U/L 38 - 126 U/L [employer] [employer] ALT [Catalytic activity/Vol] 129 U/L High 0 - 49 U/L [facility] AST [Catalytic activity/Vol] 90 U/L High 15 - 46 U/L [facility] Bilirubin [Mass/Vol] 1.0 mg/dL 0.2 - 1 .3 mg/dL [facility] Bilirubin.conjugated [Mass/Vol] 0.0 mg/dL 0.0 - 0.3 mg/dL [facility] Interpretation and review of laboratory results Abnormal [facility] Protein [Mass/Vol] 7.0 g/dL 6.3 - 8.2 g/dL [facility] Hepatic function 2000 panelo n 02-10-2023 Albumin [Mass/Vol] 4.4 g/dL 3.5 - 5.0 g/dL [facility] ALP [Catalytic activity/Vol] 98 U/L 38 - 126 U/L [facility] ALT [Catalytic activity/Vol] 153 U/L High 0 - 49 U/L [facility] AST [Catalytic activity/Vol] 121 U/L High 15 - 46 U/L [facility] Bilirubin [Mass/Vol] 1.2 mg/dL 0.2 - 1 .3 mg/dL [facility] Bilirubin.conjugated [Mass/Vol] 0.0 mg/dL 0.0 - 0.3 mg/dL [facility] Interpretation and review of laboratory results Abnormal [facility] Protein [Mass/Vol] 7.5 g/dL 6.3 - 8.2 g/dL [facility] CBC W Auto Differential pane l (Bld)Ordered By: Maite Fleming on 02-08-2023 Basophils (Bld) [#/Vol] 0.0 10*3/uL 0.0 - 0.2 10*3/uL [facility] Basophils/100 WBC (Bld) 1.0 % 0.0 - 2.0 % [facility] Eosinophils (Bld) [#/Vol] 0.0 10*3/uL 0.0 - 0.5 10*3/uL [facility] Eosinophils/100 WBC (Bld) 1.0 % 1.0 - 6.0 % [facility] Erythrocyte distribution width (RBC) [Ratio] 14.9 % High 11.5 - 14.5 % [facility] Hematocrit (Bld) [Volume fraction] 49.0 % 40.0 - 52.0 % [facility] Hemoglobin (Bld) [Mass/Vol] 16.8 g/dL 13.0 - 18.0 g/dL [facility] Interpretation and review of laboratory results Abnormal [facility] Lymphocytes (Bld) [#/Vol] 1.3 10*3/uL 1.0 - 4.3 10*3/uL [facility] Lymphocytes/100 WBC (Bld) 34.2 % 20.0 - 40.0 % [facility] MCH (RBC) [Entitic mass] 33.7 pg 26.0 - 34.0 pg [facility] MCHC (RBC) [Mass/Vol] 34.4 % 32.0 - 36.0 % [facility] MCV (RBC) [Entitic vol] 98.1 fL High 80.0 - 98.0 fL [facility] Monocytes (Bld) [#/Vol] 0.6 10*3/uL 0.0 - 0.8 10*3/uL [facility] Monocytes/100 WBC (Bld) 15.6 % High 2.0 - 10.0 % [facility] Neutrophils (Bld) [#/Vol] 1.8 10*3/uL 1.8 - 7.0 10*3/uL [facility] Neutrophils/100 WBC (Bld) 48.2 % 40.0 - 80.0 % [facility] Nucleated RBC/100 WBC (Bld) [Ratio] 0.0 % [facility] Platelet mean volume (Bld) [Entitic vol] 7.7 fL 7.4 - 12.4 fL [facility] Platelets (Bld) [#/Vol] 138 10*3/uL Low 140 - 440 10*3/uL [facility] RBC (Bld) [#/Vol] 4.99 10*6/uL 4.40 - 5.90 10*6/uL [facility] WBC (Bld) [#/Vol] 3.7 10*3/uL 3.6 - 10.7 10*3/uL [facility] Comprehensive metabolic 1998 panelon 02-08-2023 Albumin [Mass/Vol] 4.4 g/dL 3.5 - 5.0 g/dL [facility] ALP [Catalytic activity/Vol] 107 U/L 38 - 126 U/L [facility] ALT [Catalytic activity/Vol] 194 U/L High 0 - 49 U/L [facility] Anion gap [Moles/Vol] 14 mmol/L High 3 - 13 mmol/L [facility] AST [Catalytic activity/Vol] 207 U/L High 15 - 46 U/L [facility] Bilirubin [Mass/Vol] 0.8 mg/dL 0.2 - 1 .3 mg/dL [facility] Calcium [Mass/Vol] 8.4 mg/dL 8.4 - 10. 4 mg/dL [facility] Chloride [Moles/Vol] 92 mmol/L Low 98 - 10 7 mmol/L [facility] CO2 [Moles/Vol] 26 mmol/L 22 - 30 mmol/L [facility] Creatinine [Mass/Vol] 0.65 mg/dL Low 0.66 - 1.25 mg/dL [facility] GFR/1.73 sq M.predicted MDRD (S/P/Bld) [Vol rate/Area] - PINF [facility] Comment on above: Calculation based on the Chronic Kidney Disease Epidemiology Collaboration (CKD-EPI) equation refit without adjustment for race Glucose [Mass/Vol] 113 mg/dL High 70 - 100 mg/dL [facility] Interpretation and review of laboratory results Abnormal [facility] Potassium [Moles/Vol] 4.4 mmol/L 3.5 - 5.1 mmol/L [facility] Protein [Mass/Vol] 7.9 g/dL 6.3 - 8.2 g/dL [facility] Sodium [Moles/Vol] 132 mmol/L Low 135 - 145 mmol/L [facility] Urea nitrogen [Mass/Vol] 7 mg/dL Low 9 - 20 mg/dL [facility] Chemistry specimen i s slightly hemolyzed, interpret results with caution. [facility] Ethanol (Bld) [Mass/Vol]Orde red By: Jyotsna Peralta on 02-08-2023 Ethanol [Mass/Vol] 0.448 g/dL Critically high 0.000 - 0.010 g/dL [facility] Interpretation and review of laboratory results Abnormal [facility] Laboratory - Drug toxicology Ordered By: aNnette Elias on 02-08-2023 Amphetamines Screen method >1000 ng/mL Ql (U) Negative [facility] Barbiturates Screen method >200 ng/mL Ql (U) Negative [facility] Benzodiazepines Ql (U) Negative [facility] Methadone Screen Ql (U) Negative [facility] Opiates Screen Ql (U) Negative [facility] oxyCODONE Ql (U) Negative [facility] Phencyclidine Ql (U) Negative [facility] Laboratory - Microbiology an d Antimicrobial susceptibilityon 02-08-2023 FLUAV RNA NICOLAS+probe Ql (Resp) Not detected Not Detected [facility] FLUBV RNA NICOLAS+probe Ql (Resp) Not detected Not Detected [facility] RSV RNA NICOLAS+probe Ql (Resp) Not detected Not Detected [facility] SARS-CoV-2 (COVID-19) RNA NICOLAS+probe Ql (Resp) Not detected Not Detected [facility] SARS-CoV-2 (COVID-19) RNA NICOLAS+probe Ql (Unsp spec) Methodology: real-time, RT-PCR The SARS-CoV-2, Flu A/B, and RSV Combo assay is intended for in vitro diagnostic use under the FDA Emergency Use Authorization (EUA). This test has not been FDA cleared or approved. In compliance with this authorization, please visit www.fda.gov/media/953166/d ownload or www.fda.gov/media/903925/d ownload to access the applicable information sheets. [facility] No Panel InformationOrdered By: Nanette Elias on 02-08-2023 COCAINE METAB. SCREEN Negative [facility] The expected value f or all of the drugs listed above is Negative. The following drugs or drug groups have been screened for by Immunoassay at the following thresholds: Amphetamine class (1000 ng/mL) Barbiturates (200 ng/mL) Benzodiazepines (200 ng/mL) Cocaine (300 ng/mL) Methadone (300 ng/mL) Opiates (300 ng/mL) Oxycodone (100 ng/mL) PCP (25 ng/mL) NOTE: These results are for medical treatment only. Analysis performed using non-forensic procedures. POSITIVE results are NOT confirmed by a more specific alternative method unless requested. If confirmation is needed, request confirmation under separate order. [facility] SARS-CoV-2, Flu A/B, and RSV Comboon 02-08-2023 Interpretation and review of laboratory results Normal [facility] Urinalysis complete panel (U )on 02-08-2023 Bilirubin Ql (U) Negative Negative mg/dL [facility] Clarity (U) Clear Clear [facility] Color (U) Light Yellow Lt. Yellow [facility] Glucose Ql (U) Normal Normal (<70) mg/dL [facility] Hemoglobin Ql (U) Negative Negative mg/dL [facility] Interpretation and review of laboratory results Normal [facility] Ketones (U) [Mass/Vol] Negative Negat shiv mg/dL [facility] Leukocyte esterase Test strip Ql (U) Negative Negative Estefani/uL [facility] Nitrite Ql (U) Negative Negative [facility] pH (U) 5.5 [pH] 5.0 - 8.0 pH [facility] Protein (U) [Mass/Vol] Negative Negat shiv mg/dL [facility] Specific gravity (U) [Rel density] 1.005 1.005 - 1.030 [facility] Urobilinogen (U) [Mass/Vol] Normal Normal (0-1) mg/dL [facility] Cobalamin (Vitamin B12) [Mas s/Vol]on 11-01-2022 Interpretation and review of laboratory results Normal [facility] HbA1c (Bld) [Mass fraction]o n 11-01-2022 Average glucose Estimated from glycated hemoglobin (Bld) [Mass/Vol] 103 mg/dL [facility] Hemoglobin A1con 11-01-2022 HbA1c (Bld) [Mass fraction] 5.2 % NINF - 5.7 % [facility] Comment on above: Normal less than 5.7 % Prediabetes 5.7% to 6.4% Diabetes 6.5% or higher --HgbA1C levels may not be accurate in patients who have renal disease, received recent blood transfusions, are anemic, or who have dyshemoglobinemia. Iron and Iron binding capaci ty panelon 11-01-2022 Interpretation and review of laboratory results Normal [facility] Iron [Mass/Vol] 104 ug/dL 49 - 181 ug/dL [facility] Vitamin B12on 11-01-2022 Cobalamin (Vitamin B12) [Mass/Vol] 289 pg/mL 239 - 931 pg/mL [facility] CBC W Auto Differential pane l (Bld)Ordered By: Rosalee Troy on 09-29-2022 Basophils (Bld) [#/Vol] 0.1 10*3/uL 0.0 - 0.2 10*3/uL [facility] Basophils/100 WBC (Bld) 0.8 % 0.0 - 2.0 % [facility] Eosinophils (Bld) [#/Vol] 0.5 10*3/uL 0.0 - 0.5 10*3/uL [facility] Eosinophils/100 WBC (Bld) 5.0 % 1.0 - 6.0 % [facility] Erythrocyte distribution width (RBC) [Ratio] 12.1 % 11.5 - 14.5 % [facility] Hematocrit (Bld) [Volume fraction] 41.5 % 40.0 - 52.0 % [facility] Hemoglobin (Bld) [Mass/Vol] 14.2 g/dL 13.0 - 18.0 g/dL [facility] Immature granulocytes (Bld) [#/Vol] 0.0 10*3/uL NINF - 0.0 10*3/uL [facility] Immature granulocytes/100 WBC (Bld) 0.3 % High NINF - 0.0 % [facility] Interpretation and review of laboratory results Abnormal [facility] Lymphocytes (Bld) [#/Vol] 1.9 10*3/uL 1.0 - 4.3 10*3/uL [facility] Lymphocytes/100 WBC (Bld) 21.6 % 20.0 - 40.0 % [facility] MCH (RBC) [Entitic mass] 33.7 pg 26.0 - 34.0 pg [facility] MCHC (RBC) [Mass/Vol] 34.2 % 32.0 - 36.0 % [facility] MCV (RBC) [Entitic vol] 98.6 fL High 80.0 - 98.0 fL [facility] Monocytes (Bld) [#/Vol] 0.8 10*3/uL 0.0 - 0.8 10*3/uL [facility] Monocytes/100 WBC (Bld) 9.4 % 2.0 - 10.0 % [facility] Neutrophils (Bld) [#/Vol] 5.6 10*3/uL 1.8 - 7.0 10*3/uL [facility] Neutrophils/100 WBC (Bld) 62.9 % 40.0 - 80.0 % [facility] Platelet mean volume (Bld) [Entitic vol] 8.1 fL 7.4 - 12.4 fL [facility] Comment on above: MPV is a calculated measurement using platelet volume ratio Platelets (Bld) [#/Vol] 494 10*3/uL High 140 - 440 10*3/uL [facility] RBC (Bld) [#/Vol] 4.21 10*6/uL Low 4.40 - 5.90 10*6/uL [facility] WBC (Bld) [#/Vol] 9.0 10*3/uL 3.6 - 10.7 10*3/uL [facility] Comprehensive metabolic 1998 panelon 09-29-2022 Albumin [Mass/Vol] 3.8 g/dL 3.5 - 5.0 g/dL [facility] ALP [Catalytic activity/Vol] 83 U/L 38 - 126 U/L [facility] ALT [Catalytic activity/Vol] 38 U/L 0 - 49 U/L [facility] Anion gap [Moles/Vol] 4 mmol/L 3 - 13 mmol/L [facility] AST [Catalytic activity/Vol] 33 U/L 15 - 46 U/L [facility] Bilirubin [Mass/Vol] 0.3 mg/dL 0.2 - 1 .3 mg/dL [facility] Calcium [Mass/Vol] 8.5 mg/dL 8.4 - 10. 4 mg/dL [facility] Chloride [Moles/Vol] 101 mmol/L 98 - 10 7 mmol/L [facility] CO2 [Moles/Vol] 32 mmol/L High 22 - 30 mmol/L [facility] Creatinine [Mass/Vol] 0.76 mg/dL 0.66 - 1.25 mg/dL [facility] GFR/1.73 sq M.predicted MDRD (S/P/Bld) [Vol rate/Area] - PINF [facility] Comment on above: Calculation based on the Chronic Kidney Disease Epidemiology Collaboration (CKD-EPI) equation refit without adjustment for race Glucose [Mass/Vol] 112 mg/dL High 70 - 100 mg/dL [facility] Interpretation and review of laboratory results Abnormal [facility] Potassium [Moles/Vol] 3.7 mmol/L 3.5 - 5.1 mmol/L [facility] Protein [Mass/Vol] 6.8 g/dL 6.3 - 8.2 g/dL [facility] Sodium [Moles/Vol] 137 mmol/L 135 - 145 mmol/L [facility] Urea nitrogen [Mass/Vol] 6 mg/dL Low 9 - 20 mg/dL [facility] Hepatitis 1996 panel (S)on 0 09-29-2022 HAV IgM IA Ql Not detected Not Detected [facility] HBV core IgM IA Ql Not detected Not Detected [facility] HBV surface Ag IA Ql Not detected Not Detected [facility] HCV Ab IA Ql Not detected Not Detected [facility] Comment on above: Patients with DETECT ED Hepatitis C Ab results should have a new specimen submitted for supplemental testing with a Hepatitis C Quantitative RNA assay (viral load), if clinically indicated. Interpretation and review of laboratory results Normal [employer] No Panel InformationOrdered By: Katrina Spencer on 09-12-2022 P [place] 68 degrees [employer] Work Phone: VA Interval 156 ms [employer] Phone: QRS [place] 83 degrees [employer] Phone: QRSD Interval 85 ms [employer] Phone: QT Interval 339 ms [employer] Phone: QTC Interval 448 ms [employer] Phone: T Wave [place] 62 degrees [employer] Phone: [employer] Phone: No Panel Informationon 09-12 Sinus tachycardia Probable left atrial enlargement Borderline T abnormalities, anterior leads Electronically Signed On 09-12-2022 13:06:59 EDT by Katrina Spencer CV Katrina Lopez MD - 09/12/2022 IMPRESSION: Sinus tachycardia Probable left atrial enlargement Borderline T abnormalities, anterior leads Electronically Signed On 09-12-2022 13:06:59 EDT by Katrina Spencer [facility] Vital signsOrdered By: Brianna Spencer on 09-12-2022 Heart rate 105 /min bpm [employer] Work Phone: CBC W Auto Differential pane l (Bld)Ordered By: Magali Hawkins on 09-10-2022 Basophils (Bld) [#/Vol] 0.1 10*3/uL 0.0 - 0.2 10*3/uL [facility] Basophils/100 WBC (Bld) 1.4 % 0.0 - 2.0 % [facility] Eosinophils (Bld) [#/Vol] 0.0 10*3/uL 0.0 - 0.5 10*3/uL [facility] Eosinophils/100 WBC (Bld) 0.6 % Low 1.0 - 6.0 % [facility] Erythrocyte distribution width (RBC) [Ratio] 13.8 % 11.5 - 14.5 % [facility] Hematocrit (Bld) [Volume fraction] 49.7 % 40.0 - 52.0 % [facility] Hemoglobin (Bld) [Mass/Vol] 16.6 g/dL 13.0 - 18.0 g/dL [facility] Interpretation and review of laboratory results Abnormal [facility] Lymphocytes (Bld) [#/Vol] 1.2 10*3/uL 1.0 - 4.3 10*3/uL [facility] Lymphocytes/100 WBC (Bld) 23.3 % 20.0 - 40.0 % [facility] MCH (RBC) [Entitic mass] 33.4 pg 26.0 - 34.0 pg [facility] MCHC (RBC) [Mass/Vol] 33.5 % 32.0 - 36.0 % [facility] MCV (RBC) [Entitic vol] 100.0 fL High 80.0 - 98.0 fL [facility] Monocytes (Bld) [#/Vol] 0.7 10*3/uL 0.0 - 0.8 10*3/uL [facility] Monocytes/100 WBC (Bld) 14.2 % High 2.0 - 10.0 % [facility] Neutrophils (Bld) [#/Vol] 3.2 10*3/uL 1.8 - 7.0 10*3/uL [facility] Neutrophils/100 WBC (Bld) 60.5 % 40.0 - 80.0 % [facility] Nucleated RBC/100 WBC (Bld) [Ratio] 0.3 % [facility] Platelet mean volume (Bld) [Entitic vol] 7.7 fL 7.4 - 12.4 fL [facility] Platelets (Bld) [#/Vol] 183 10*3/uL 140 - 440 10*3/uL [facility] RBC (Bld) [#/Vol] 4.97 10*6/uL 4.40 - 5.90 10*6/uL [facility] WBC (Bld) [#/Vol] 5.3 10*3/uL 3.6 - 10.7 10*3/uL [facility] CK [Catalytic activity/Vol]o n 09-10-2022 Interpretation and review of laboratory results Normal [facility] CT Abdomen WO contraston 1. No evidence of ac darrian infectious or inflammatory process in the abdomen or pelvis. 2. The liver demonstrates generalized diminished attenuation as compared to the spleen, compatible with hepatic steatosis 3. Few scattered descending colon diverticula without evidence of acute diverticulitis Report Dictated on Electronically Signed By: Barry Lam Electronically Signed Date/Time: 09/10/2022 2:52 PM EDT [employer] Patient Name: MARIA DE JESUS SÁNCHEZ : 1965 [id number] Exam Date/Time: 09/10/2022 14:30 Procedure: CT ABDOMEN PELVIS WO IV CONTRAST Ordering Provider: BERGERON BETHANY Reason For Exam: Abdominal pain, acute, nonlocalized CT ABDOMEN AND PELVIS WITH CONTRAST CLINICAL INDICATION: Abdominal pain. TECHNIQUE: Multi-axial 3mm sections through the abdomen and pelvis following 75 mL of Isoview contrast media. No oral contrast was administered. Coronal and sagittal reconstructions were reviewed. Dose reduction was employed with automated exposure control. COMPARISON: July 21, 2022. FINDINGS: Lower thorax: Normal. Stomach: Unremarkable. Liver: Normal size and contours. The liver demonstrates generalized diminished attenuation as compared to the spleen, compatible with hepatic steatosis. No focal lesion. Biliary tree: Unremarkable gallbladder by CT. No biliary dilatation. Spleen: Normal. Adrenals: Normal. Pancreas: Normal. Kidneys: Symmetric contrast enhancement without evidence of hydronephrosis. No focal renal lesion is identified. Free air or fluid: None. Mesenteric/retroperitoneal : No adenopathy or inflammation. Aorta: Normal caliber of aorta and bilateral common iliac arteries. Bowel: Few scattered descending colon diverticula without evidence of acute diverticulitis. Normal appendix without inflammatory change in the right lower quadrant. No inflammatory change or bowel dilatation is noted. Urinary bladder: Distended urinary bladder. Abdominal wall/soft tissues: Tiny fat containing umbilical hernia. Inguinal: No lymphadenopathy. Osseous structures: Multilevel spondylosis. No suspicious osseous lesion. [employer] Barry Lam MD - 09/10/2022 Patient Name: MARIA DE JESUS HOGAN : 1965 Exam Date/Time: 09/10/2022 14:30 Procedure: CT ABDOMEN PELVIS WO IV CONTRAST Ordering Provider: BERGERON BETHANY Reason For Exam: Abdominal pain, acute, nonlocalized CT ABDOMEN AND PELVIS WITH CONTRAST CLINICAL INDICATION: Abdominal pain. TECHNIQUE: Multi-axial 3mm sections through the abdomen and pelvis following 75 mL of Isoview contrast media. No oral contrast was administered. Coronal and sagittal reconstructions were reviewed. Dose reduction was employed with automated exposure control. COMPARISON: July 21, 2022. FINDINGS: Lower thorax: Normal. Stomach: Unremarkable. Liver: Normal size and contours. The liver demonstrates generalized diminished attenuation as compared to the spleen, compatible with hepatic steatosis. No focal lesion. Biliary tree: Unremarkable gallbladder by CT. No biliary dilatation. Spleen: Normal. Adrenals: Normal. Pancreas: Normal. Kidneys: Symmetric contrast enhancement without evidence of hydronephrosis. No focal renal lesion is identified. Free air or fluid: None. Mesenteric/retroperitoneal : No adenopathy or inflammation. Aorta: Normal caliber of aorta and bilateral common iliac arteries. Bowel: Few scattered descending colon diverticula without evidence of acute diverticulitis. Normal appendix without inflammatory change in the right lower quadrant. No inflammatory change or bowel dilatation is noted. Urinary bladder: Distended urinary bladder. Abdominal wall/soft tissues: Tiny fat containing umbilical hernia. Inguinal: No lymphadenopathy. Osseous structures: Multilevel spondylosis. No suspicious osseous lesion. IMPRESSION: 1. No evidence of acute infectious or inflammatory process in the abdomen or pelvis. 2. The liver demonstrates generalized diminished attenuation as compared to the spleen, compatible with hepatic steatosis 3. Few scattered descending colon diverticula without evidence of acute diverticulitis Report Dictated on Electronically Signed By: Barry Lam Electronically Signed Date/Time: 09/10/2022 2:52 PM EDT [facility] Study observation (narrative) [facility] Abdomen WO contrastOrdere d By: Barry Lam on 09-10-2022 [facility] Work Phone: Comprehensive metabolic 1998 panelon 09-10-2022 Albumin [Mass/Vol] 4.2 g/dL 3.5 - 5.0 g/dL [facility] ALP [Catalytic activity/Vol] 140 U/L High 38 - 126 U/L [facility] ALT [Catalytic activity/Vol] 123 U/L High 0 - 49 U/L [facility] Anion gap [Moles/Vol] 10 mmol/L 3 - 13 mmol/L [facility] AST [Catalytic activity/Vol] 156 U/L High 15 - 46 U/L [facility] Bilirubin [Mass/Vol] 0.6 mg/dL 0.2 - 1 .3 mg/dL [facility] Calcium [Mass/Vol] 8.0 mg/dL Low 8.4 - 10. 4 mg/dL [facility] Chloride [Moles/Vol] 98 mmol/L 98 - 10 7 mmol/L [facility] CO2 [Moles/Vol] 24 mmol/L 22 - 30 mmol/L [facility] Creatinine [Mass/Vol] 0.57 mg/dL Low 0.66 - 1.25 mg/dL [facility] GFR/1.73 sq M.predicted MDRD (S/P/Bld) [Vol rate/Area] - PINF [facility] Comment on above: Calculation based on the Chronic Kidney Disease Epidemiology Collaboration (CKD-EPI) equation refit without adjustment for race Glucose [Mass/Vol] 141 mg/dL High 70 - 100 mg/dL [facility] Potassium [Moles/Vol] 4.3 mmol/L 3.5 - 5.1 mmol/L [facility] Protein [Mass/Vol] 7.5 g/dL 6.3 - 8.2 g/dL [facility] Sodium [Moles/Vol] 132 mmol/L Low 135 - 145 mmol/L [facility] Urea nitrogen [Mass/Vol] 6 mg/dL Low 9 - 20 mg/dL [facility] Slightly Hemolyzed. Interpret ALKALINE PHOSPHATASE, AST, and POTASSIUM with caution. [facility] Ethanol (Bld) [Mass/Vol]Orde red By: Ruchi Mancera on 09-10-2022 Ethanol [Mass/Vol] 0.384 g/dL Critically high 0.000 - 0.010 g/dL [facility] Interpretation and review of laboratory results Abnormal [facility] Slightly Hemolyzed. Interpret with caution. NOTE: This result is for medical treatment only. Analysis performed using non-forensic procedures. [facility] Laboratory - Chemistry and C hemistry - challengeon 09-10-2022 CK [Catalytic activity/Vol] 107 U/L 30 - 170 U/L [facility] Lipase [Catalytic activity/Vol] 389 U/L High 23 - 300 U/L [facility] Laboratory - Drug toxicology Ordered By: Zulma Nolan on 09-10-2022 Amphetamines Screen method >1000 ng/mL Ql (U) Negative [facility] Barbiturates Screen method >200 ng/mL Ql (U) Negative [facility] Benzodiazepines Ql (U) Negative [facility] Methadone Screen Ql (U) Negative [facility] Opiates Screen Ql (U) Negative [facility] oxyCODONE Ql (U) Negative [facility] Phencyclidine Ql (U) Negative [facility] Laboratory - Drug toxicology on 09-10-2022 Acetaminophen [Mass/Vol] ug/mL Low 10.0 - 30.0 ug/mL [facility] No Panel InformationOrdered By: Zulma Nolan on 09-10-2022 COCAINE METAB. SCREEN Negative [facility] The expected value f or all of the drugs listed above is Negative. The following drugs or drug groups have been screened for by Immunoassay at the following thresholds: Amphetamine class (1000 ng/mL) Barbiturates (200 ng/mL) Benzodiazepines (200 ng/mL) Cocaine (300 ng/mL) Methadone (300 ng/mL) Opiates (300 ng/mL) Oxycodone (100 ng/mL) PCP (25 ng/mL) NOTE: These results are for medical treatment only. Analysis performed using non-forensic procedures. POSITIVE results are NOT confirmed by a more specific alternative method unless requested. If confirmation is needed, request confirmation under separate order. [facility] No Panel Informationon 09-10 Interpretation and review of laboratory results Abnormal [facility] SARS-CoV-2 (COVID-19) RNA pa lowell NICOLAS+probe (Resp)on 09-10-2022 Interpretation and review of laboratory results Normal [facility] SARS-CoV-2 (COVID-19) RNA NICOLAS+probe Ql (Resp) Not detected Not Detected [facility] SARS-CoV-2 (COVID-19) RNA NICOLAS+probe Ql (Unsp spec) Methodology: real-time, RT-PCR The SARS-CoV-2 assay is intended for in vitro diagnostic use under the FDA Emergency Use Authorization (EUA). This test has not been FDA cleared or approved. In compliance with this authorization, please visit www.fda.gov/media/942596/d ownload or www.fda.gov/media/008978/d ownload to access the applicable information sheets. [facility] CBC panel Auto (Bld)Ordered By: Papito Emerson on 07-23-2022 Erythrocyte distribution width (RBC) [Ratio] 14.9 % High 11.5 - 14.5 % [facility] Hematocrit (Bld) [Volume fraction] 46.9 % 40.0 - 52.0 % [facility] Hemoglobin (Bld) [Mass/Vol] 15.9 g/dL 13.0 - 18.0 g/dL [facility] Interpretation and review of laboratory results Abnormal [facility] MCH (RBC) [Entitic mass] 33.3 pg 26.0 - 34.0 pg [facility] MCHC (RBC) [Mass/Vol] 34.0 % 32.0 - 36.0 % [facility] MCV (RBC) [Entitic vol] 98.1 fL High 80.0 - 98.0 fL [facility] Platelet mean volume (Bld) [Entitic vol] 6.9 fL Low 7.4 - 12.4 fL [facility] Platelets (Bld) [#/Vol] 198 10*3/uL 140 - 440 10*3/uL [facility] RBC (Bld) [#/Vol] 4.78 10*6/uL 4.40 - 5.90 10*6/uL [facility] WBC (Bld) [#/Vol] 5.8 10*3/uL 3.6 - 10.7 10*3/uL [facility] Comprehensive metabolic 1998 panelon 07-23-2022 Albumin [Mass/Vol] 4.2 g/dL 3.5 - 5.0 g/dL [facility] ALP [Catalytic activity/Vol] 126 U/L 38 - 126 U/L [facility] ALT [Catalytic activity/Vol] 36 U/L 0 - 49 U/L [facility] Anion gap [Moles/Vol] 1 mmol/L Low 3 - 13 mmol/L [facility] AST [Catalytic activity/Vol] 40 U/L 15 - 46 U/L [facility] Bilirubin [Mass/Vol] 1.0 mg/dL 0.2 - 1 .3 mg/dL [facility] Calcium [Mass/Vol] 8.6 mg/dL 8.4 - 10. 4 mg/dL [facility] Chloride [Moles/Vol] 95 mmol/L Low 98 - 10 7 mmol/L [facility] CO2 [Moles/Vol] 36 mmol/L High 22 - 30 mmol/L [facility] Creatinine [Mass/Vol] 0.77 mg/dL 0.66 - 1.25 mg/dL [facility] GFR/1.73 sq M.predicted MDRD (S/P/Bld) [Vol rate/Area] - PINF [facility] Comment on above: Calculation based on the Chronic Kidney Disease Epidemiology Collaboration (CKD-EPI) equation refit without adjustment for race Glucose [Mass/Vol] 98 mg/dL 70 - 100 mg/dL [facility] Interpretation and review of laboratory results Abnormal [facility] Potassium [Moles/Vol] 4.0 mmol/L 3.5 - 5.1 mmol/L [facility] Protein [Mass/Vol] 7.5 g/dL 6.3 - 8.2 g/dL [facility] Sodium [Moles/Vol] 132 mmol/L Low 135 - 145 mmol/L [facility] Urea nitrogen [Mass/Vol] 10 mg/dL 9 - 20 mg/dL [facility] CBC panel Auto (Bld)Ordered By: Inés rBewer on 07-22-2022 Erythrocyte distribution width (RBC) [Ratio] 15.5 % High 11.5 - 14.5 % [facility] Hematocrit (Bld) [Volume fraction] 47.1 % 40.0 - 52.0 % [facility] Hemoglobin (Bld) [Mass/Vol] 15.6 g/dL 13.0 - 18.0 g/dL [facility] Interpretation and review of laboratory results Abnormal [facility] MCH (RBC) [Entitic mass] 32.8 pg 26.0 - 34.0 pg [facility] MCHC (RBC) [Mass/Vol] 33.2 % 32.0 - 36.0 % [facility] MCV (RBC) [Entitic vol] 98.7 fL High 80.0 - 98.0 fL [facility] Platelet mean volume (Bld) [Entitic vol] 6.8 fL Low 7.4 - 12.4 fL [facility] Platelets (Bld) [#/Vol] 201 10*3/uL 140 - 440 10*3/uL [facility] RBC (Bld) [#/Vol] 4.77 10*6/uL 4.40 - 5.90 10*6/uL [facility] WBC (Bld) [#/Vol] 5.7 10*3/uL 3.6 - 10.7 10*3/uL [facility] Comprehensive metabolic 1998 panelon 07-22-2022 Albumin [Mass/Vol] 4.1 g/dL 3.5 - 5.0 g/dL [facility] ALP [Catalytic activity/Vol] 122 U/L 38 - 126 U/L [facility] ALT [Catalytic activity/Vol] 43 U/L 0 - 49 U/L [facility] Anion gap [Moles/Vol] 7 mmol/L 3 - 13 mmol/L [facility] AST [Catalytic activity/Vol] 49 U/L High 15 - 46 U/L [facility] Bilirubin [Mass/Vol] 0.6 mg/dL 0.2 - 1 .3 mg/dL [facility] Calcium [Mass/Vol] 8.0 mg/dL Low 8.4 - 10. 4 mg/dL [facility] Chloride [Moles/Vol] 100 mmol/L 98 - 10 7 mmol/L [facility] CO2 [Moles/Vol] 26 mmol/L 22 - 30 mmol/L [facility] Creatinine [Mass/Vol] 0.85 mg/dL 0.66 - 1.25 mg/dL [facility] GFR/1.73 sq M.predicted MDRD (S/P/Bld) [Vol rate/Area] - PINF [facility] Comment on above: Calculation based on the Chronic Kidney Disease Epidemiology Collaboration (CKD-EPI) equation refit without adjustment for race Glucose [Mass/Vol] 97 mg/dL 70 - 100 mg/dL [facility] Interpretation and review of laboratory results Abnormal [facility] Potassium [Moles/Vol] 4.0 mmol/L 3.5 - 5.1 mmol/L [facility] Protein [Mass/Vol] 7.3 g/dL 6.3 - 8.2 g/dL [facility] Sodium [Moles/Vol] 133 mmol/L Low 135 - 145 mmol/L [facility] Urea nitrogen [Mass/Vol] 11 mg/dL 9 - 20 mg/dL [facility] Blood type and Crossmatch neva etienne (Bld)on 07-21-2022 ABO group Nom (Bld) A [facility] Blood group antibody screen GEL Ql Negative [facility] D Ag Ql (RBC) Positive [facility] CBC W Auto Differential pane l (Bld)Ordered By: Jacqueline Smith on 07-21-2022 Basophils (Bld) [#/Vol] 0.1 10*3/uL 0.0 - 0.2 10*3/uL [facility] Basophils/100 WBC (Bld) 1.2 % 0.0 - 2.0 % [facility] Eosinophils (Bld) [#/Vol] 0.1 10*3/uL 0.0 - 0.5 10*3/uL [facility] Eosinophils/100 WBC (Bld) 1.2 % 1.0 - 6.0 % [facility] Erythrocyte distribution width (RBC) [Ratio] 15.4 % High 11.5 - 14.5 % [facility] Hematocrit (Bld) [Volume fraction] 46.9 % 40.0 - 52.0 % [facility] Hemoglobin (Bld) [Mass/Vol] 16.0 g/dL 13.0 - 18.0 g/dL [facility] Interpretation and review of laboratory results Abnormal [facility] Lymphocytes (Bld) [#/Vol] 1.9 10*3/uL 1.0 - 4.3 10*3/uL [facility] Lymphocytes/100 WBC (Bld) 31.1 % 20.0 - 40.0 % [facility] MCH (RBC) [Entitic mass] 33.5 pg 26.0 - 34.0 pg [facility] MCHC (RBC) [Mass/Vol] 34.1 % 32.0 - 36.0 % [facility] MCV (RBC) [Entitic vol] 98.4 fL High 80.0 - 98.0 fL [facility] Monocytes (Bld) [#/Vol] 0.6 10*3/uL 0.0 - 0.8 10*3/uL [facility] Monocytes/100 WBC (Bld) 9.8 % 2.0 - 10.0 % [facility] Neutrophils (Bld) [#/Vol] 3.5 10*3/uL 1.8 - 7.0 10*3/uL [facility] Neutrophils/100 WBC (Bld) 56.7 % 40.0 - 80.0 % [facility] Nucleated RBC/100 WBC (Bld) [Ratio] 0.1 % [facility] Platelet mean volume (Bld) [Entitic vol] 6.8 fL Low 7.4 - 12.4 fL [facility] Platelets (Bld) [#/Vol] 211 10*3/uL 140 - 440 10*3/uL [facility] RBC (Bld) [#/Vol] 4.77 10*6/uL 4.40 - 5.90 10*6/uL [facility] WBC (Bld) [#/Vol] 6.2 10*3/uL 3.6 - 10.7 10*3/uL [facility] CT Abdomen and Pelvis W cont rast Main 07-21-2022 No acute abdominal o r pelvic findings to explain symptoms. Hepatic steatosis. Sigmoid diverticulosis. Report Dictated on Workstation: [id number] Electronically Signed By: Joon Foley Electronically Signed Date/Time: 07/21/2022 6:02 PM [facility] RADIOLOGY [facility] Patient Name: MARIA DE JESUS SÁNCHEZ : 1965 Exam Date/Time: 07/21/2022 17:53 Procedure: CT ABDOMEN PELVIS W CONTRAST Ordering Provider: VILLALTA TYLER Reason For Exam: upper abd pain, hematemesis, eval for bleeding source, pancratitis CT ABDOMEN AND PELVIS WITH CONTRAST CLINICAL INDICATION: Upper abdominal pain and hematemesis.. TECHNIQUE: Multi-axial 3mm sections through the abdomen and pelvis following 75 mL of Isoview contrast media. No oral contrast was administered. Coronal and sagittal reconstructions were reviewed. Dose reduction was employed with automated exposure control. COMPARISON: 06/06/2021. FINDINGS: Lung bases: Normal. Liver: Liver is diffusely low in density consistent with fatty liver change. No focal lesion. Biliary tree: The gallbladder is unremarkable. No biliary dilatation. Spleen: Normal. Adrenals: Normal. Pancreas: Normal. Kidneys: Symmetric contrast enhancement without evidence of hydronephrosis. No focal renal lesion is identified. Free air or fluid: None. Mesenteric/retroperitoneal : No adenopathy or inflammation. Aorta: Atherosclerotic calcific aortic and iliac artery changes. Bowel: The appendix is not visualized and no pericecal inflammatory changes are evident.. No dilatation is noted. Sigmoid diverticulosis without evidence of acute diverticulitis. No definite evidence of pneumatosis coli. Abdominal wall: No ventral hernia is evident. Pelvic organs/viscera: No mass identified. Bladder is normally distended. No pelvic free fluid. Inguinal lymphadenopathy: None. Osseous structures: Lumbar degenerative spondylosis. [facility] RADIOLOGY [facility] oJon Foley DO - 07/21/2022 Patient Name: MARIA DE JESUS HOGAN [facility] 1965 [id number] Exam Date/Time: 07/21/2022 17:53 Procedure: CT ABDOMEN PELVIS W CONTRAST Ordering Provider: VILLALTA TYLER Reason For Exam: upper abd pain, hematemesis, eval for bleeding source, pancratitis CT ABDOMEN AND PELVIS WITH CONTRAST CLINICAL INDICATION: Upper abdominal pain and hematemesis.. TECHNIQUE: Multi-axial 3mm sections through the abdomen and pelvis following 75 mL of Isoview contrast media. No oral contrast was administered. Coronal and sagittal reconstructions were reviewed. Dose reduction was employed with automated exposure control. COMPARISON: 06/06/2021. FINDINGS: Lung bases: Normal. Liver: Liver is diffusely low in density consistent with fatty liver change. No focal lesion. Biliary tree: The gallbladder is unremarkable. No biliary dilatation. Spleen: Normal. Adrenals: Normal. Pancreas: Normal. Kidneys: Symmetric contrast enhancement without evidence of hydronephrosis. No focal renal lesion is identified. Free air or fluid: None. Mesenteric/retroperitoneal : No adenopathy or inflammation. Aorta: Atherosclerotic calcific aortic and iliac artery changes. Bowel: The appendix is not visualized and no pericecal inflammatory changes are evident.. No dilatation is noted. Sigmoid diverticulosis without evidence of acute diverticulitis. No definite evidence of pneumatosis coli. Abdominal wall: No ventral hernia is evident. Pelvic organs/viscera: No mass identified. Bladder is normally distended. No pelvic free fluid. Inguinal lymphadenopathy: None. Osseous structures: Lumbar degenerative spondylosis. IMPRESSION: No acute abdominal or pelvic findings to explain symptoms. Hepatic steatosis. Sigmoid diverticulosis. Report Dictated on Workstation: [id number] Electronically Signed By: Joon Foley Electronically Signed Date/Time: 07/21/2022 6:02 PM EDT [facility] Radiology Study observation (narrative) [facility] CT Abdomen and Pelvis W cont rast IVOrdered By: Joon Foley on 07-21-2022 [facility] Work Phone: Cobalamin (Vitamin B12) [Mas s/Vol]on 07-21-2022 Interpretation and review of laboratory results Normal [facility] Comprehensive metabolic 1998 panelon 07-21-2022 Albumin [Mass/Vol] 4.2 g/dL 3.5 - 5.0 g/dL [facility] ALP [Catalytic activity/Vol] 124 U/L 38 - 126 U/L [facility] ALT [Catalytic activity/Vol] 43 U/L 0 - 49 U/L [facility] Anion gap [Moles/Vol] 11 mmol/L 3 - 13 mmol/L [facility] AST [Catalytic activity/Vol] 56 U/L High 15 - 46 U/L [facility] Bilirubin [Mass/Vol] 0.5 mg/dL 0.2 - 1 .3 mg/dL [facility] Calcium [Mass/Vol] 8.5 mg/dL 8.4 - 10. 4 mg/dL [facility] Chloride [Moles/Vol] 101 mmol/L 98 - 10 7 mmol/L [facility] CO2 [Moles/Vol] 24 mmol/L 22 - 30 mmol/L [facility] Creatinine [Mass/Vol] 0.85 mg/dL 0.66 - 1.25 mg/dL [facility] GFR/1.73 sq M.predicted MDRD (S/P/Bld) [Vol rate/Area] - PINF [facility] Comment on above: Calculation based on the Chronic Kidney Disease Epidemiology Collaboration (CKD-EPI) equation refit without adjustment for race Glucose [Mass/Vol] 98 mg/dL 70 - 100 mg/dL [facility] Interpretation and review of laboratory results Abnormal [facility] Potassium [Moles/Vol] 4.1 mmol/L 3.5 - 5.1 mmol/L [facility] Protein [Mass/Vol] 7.4 g/dL 6.3 - 8.2 g/dL [facility] Sodium [Moles/Vol] 136 mmol/L 135 - 145 mmol/L [facility] Urea nitrogen [Mass/Vol] 8 mg/dL Low 9 - 20 mg/dL [facility] Drug screen panel, emergency on 07-21-2022 Amphetamines Screen method >1000 ng/mL Ql (U) Negative [facility] Barbiturates Screen method >200 ng/mL Ql (U) Negative [facility] Benzodiazepines Ql (U) Negative [facility] COCAINE METAB. SCREEN Negative [facility] Methadone Screen Ql (U) Negative [facility] Opiates Screen Ql (U) Negative [facility] oxyCODONE Ql (U) Negative [facility] Phencyclidine Ql (U) Negative [facility] The expected value f or all of the drugs listed above is Negative. The following drugs or drug groups have been screened for by Immunoassay at the following thresholds: Amphetamine class (1000 ng/mL) Barbiturates (200 ng/mL) Benzodiazepines (200 ng/mL) Cocaine (300 ng/mL) Methadone (300 ng/mL) Opiates (300 ng/mL) Oxycodone (100 ng/mL) PCP (25 ng/mL) NOTE: These results are for medical treatment only. Analysis performed using non-forensic procedures. POSITIVE results are NOT confirmed by a more specific alternative method unless requested. If confirmation is needed, request confirmation under separate order. [facility] ECG 12 leadon 07-21-2022 Heart rate 95 /min bpm [facility] P [place] 50 degrees [facility] VA Interval 188 ms [facility] QRS [place] 44 degrees [facility] QRSD Interval 94 ms [facility] QT Interval 372 ms [facility] QTC Interval 468 ms [facility] T Wave [place] 50 degrees [facility] SINUS RHYTHM PROBABLE LEFT ATRIAL ABNORMALITY RSR' IN V1 OR V2, RIGHT VCD OR RVH Compared to ECG 06/06/2021 16:40:22 Electronically Signed On 07-21-2022 21:01:15 EDT by Arsenio Titus DO - 07/21/2022 IMPRESSION: SINUS RHYTHM PROBABLE LEFT ATRIAL ABNORMALITY RSR' IN V1 OR V2, RIGHT VCD OR RVH Compared to ECG 06/06/2021 16:40:22 Electronically Signed On 07-21-2022 21:01:15 EDT by Arsenio Villalta [facility] Ethanol (Bld) [Mass/Vol]on 0 07-21-2022 Ethanol [Mass/Vol] 0.323 g/dL Critically high 0.000 - 0.010 g/dL [facility] Interpretation and review of laboratory results Abnormal [facility] Lipaseon 07-21-2022 Lipase [Catalytic activity/Vol] 209 U/L 23 - 300 U/L [facility] Lipase [Catalytic activity/V ol]on 07-21-2022 Interpretation and review of laboratory results Normal [facility] Magnesiumon 07-21-2022 Magnesium [Mass/Vol] 2.1 mg/dL 1.6 - 2 .3 mg/dL [facility] Magnesium [Mass/Vol]on 07-21 Interpretation and review of laboratory results Normal [facility] No Panel Informationon 07-21 [facility] PT Coag (Bld) [Time]on 07-21 INR Coag (PPP) [Relative time] 0.9 {INR} 0.9 - 1.1 [facility] Comment on above: Recommended Anticoag ulant Therapy: SEE BELOW ----- INR of 2.0 - 3.0 : - Prophylaxis of Venous Thrombosis (high-risk surgery) - Treatment of Venous Thrombosis - Treatment of Pulmonary Embolism (Includes tissue heart valves, Acute Myocardial Infarction to prevent systemic embolism, Valvular Heart Disease, and Atrial Fibrillation) ----- INR of 2.5 - 3.5 : - Mechanical Prosthetic Valves (high risk) - If oral anticoagulant therapy is used to prevent Myocardial Infarction Interpretation and review of laboratory results Normal [facility] Phosphate [Moles/Vol]on 07-01 Interpretation and review of laboratory results Abnormal [facility] Phosphate [Mass/Vol] 4.6 mg/dL High 2.5 - 4 .5 mg/dL [facility] Protime-INRon 07-21-2022 PT Coag (Bld) [Time] 10.3 s 9.0 - 1 2.0 s [facility] SARS-CoV-2, Flu A/B, and RSV Comboon 07-21-2022 FLUAV RNA NICOLAS+probe Ql (Resp) Not detected Not Detected [facility] FLUBV RNA NICOLAS+probe Ql (Resp) Not detected Not Detected [facility] Interpretation and review of laboratory results Normal [facility] RSV RNA NICOLAS+probe Ql (Resp) Not detected Not Detected [facility] SARS-CoV-2 (COVID-19) RNA NICOLAS+probe Ql (Resp) Not detected Not Detected [facility] SARS-CoV-2 (COVID-19) RNA NICOLAS+probe Ql (Unsp spec) Methodology: real-time, RT-PCR The SARS-CoV-2, Flu A/B, and RSV Combo assay is intended for in vitro diagnostic use under the FDA Emergency Use Authorization (EUA). This test has not been FDA cleared or approved. In compliance with this authorization, please visit www.fda.gov/media/060787/d ownload or www.[employer].gov/media/371054/d ownload to access the applicable information sheets. [facility] TSHon 07-21-2022 TSH Qn 2.092 m[IU]/L [facility] TSH Qnon 07-21-2022 Interpretation and review of laboratory results Normal [facility] Troponin Ion 07-21-2022 Troponin I.cardiac [Mass/Vol] ng/mL 0.000 - 0.034 ng/mL [facility] Troponin I.cardiac [Mass/Vol ]on 07-21-2022 Interpretation and review of laboratory results Normal [facility] Patients with high l evels of Biotin oral intake (ie >5 mg/day) may have falsely decreased Troponin levels. [facility] Urinalysis complete panel (U )on 07-21-2022 Bilirubin Ql (U) Negative Negative mg/dL [facility] Clarity (U) Clear Clear [facility] Color (U) Colorless Lt. Yellow [facility] Glucose Ql (U) Normal Normal (<70) mg/dL [facility] Hemoglobin Ql (U) Negative Negative mg/dL [facility] Interpretation and review of laboratory results Abnormal [facility] Ketones (U) [Mass/Vol] Negative Negat shiv mg/dL [facility] Leukocyte esterase Test strip Ql (U) Negative Negative Estefani/uL [facility] Nitrite Ql (U) Negative Negative [facility] pH (U) 5.0 [pH] 5.0 - 8.0 pH [facility] Protein (U) [Mass/Vol] Negative Negat shiv mg/dL [facility] Specific gravity (U) [Rel density] 1.003 Low 1.005 - 1.030 [facility] Urobilinogen (U) [Mass/Vol] Normal Normal (0-1) mg/dL [facility] Vitamin B12on 07-21-2022 Cobalamin (Vitamin B12) [Mass/Vol] 264 pg/mL 239 - 931 pg/mL [facility] XR Lumbar spine 4 Viewson No acute osseous abnormality of the lumbar spine. Moderate facet arthrosis of the lower lumbar spine. Report Dictated on Electronically Signed By: Maria De Jesus Marcelo Electronically Signed Date/Time: 07/10/2022 3:34 PM EDT [facility] [employer] Patient Name: MARIA DE JESUS SÁNCHEZ : 1965 Exam Date/Time: 07/09/2022 14:57 Procedure: XR LUMBAR SPINE COMP INCL BEND VW Ordering Provider: RASHEED DIANA Reason For Exam: Lumbar radiculopathy, no red flags, no prior management CLINICAL HISTORY: Lumbar radiculopathy, no red flags, no prior management COMPARISON: 08/13/2018 Technique: AP, lateral, and a spot lateral view of the L5-S1 level was obtained.Additionally, oblique views were obtained. FINDINGS: There are 5 non-rib bearing lumbar type vertebral bodies. Anterior wedging of the T11 and T12 vertebral bodies remains unchanged. No new compression deformity. Intervertebral disc spaces remain preserved and there is no listhesis. The normal lumbar lordosis is maintained. Moderate degenerative facet changes of the lower lumbar spine are present. No pars fractures are identified on the oblique views. Atherosclerotic calcifications of the abdominal aorta. [facility] RADIOLOGY SYSTEM Ivett Marcelo MD - 07/10/2022 Patient Name: MARIA DE JESUS HOGAN : 1965 Exam Date/Time: 07/09/2022 14:57 Procedure: XR LUMBAR SPINE COMP INCL BEND VW Ordering Provider: RASHEED DIANA Reason For Exam: Lumbar radiculopathy, no red flags, no prior management CLINICAL HISTORY: Lumbar radiculopathy, no red flags, no prior management COMPARISON: 08/13/2018 Technique: AP, lateral, and a spot lateral view of the L5-S1 level was obtained.Additionally, oblique views were obtained. FINDINGS: There are 5 non-rib bearing lumbar type vertebral bodies. Anterior wedging of the T11 and T12 vertebral bodies remains unchanged. No new compression deformity. Intervertebral disc spaces remain preserved and there is no listhesis. The normal lumbar lordosis is maintained. Moderate degenerative facet changes of the lower lumbar spine are present. No pars fractures are identified on the oblique views. Atherosclerotic calcifications of the abdominal aorta. IMPRESSION: No acute osseous abnormality of the lumbar spine. Moderate facet arthrosis of the lower lumbar spine. Report Dictated on Electronically Signed By: Maria De Jesus Marcelo Electronically Signed Date/Time: 07/10/2022 3:34 PM EDT [facility] XR Lumbar spine 4 ViewsOrder ed By: Ivett Marcelo on 07-10-2022 [facility] Work Phone: CBC W Auto Differential pane l (Bld)Ordered By: Jinny Phelps on 07-09-2022 Basophils (Bld) [#/Vol] 0.1 10*3/uL 0.0 - 0.2 10*3/uL [facility] Basophils/100 WBC (Bld) 1.1 % 0.0 - 2.0 % [facility] Eosinophils (Bld) [#/Vol] 0.1 10*3/uL 0.0 - 0.5 10*3/uL [facility] Eosinophils/100 WBC (Bld) 1.9 % 1.0 - 6.0 % [facility] Erythrocyte distribution width (RBC) [Ratio] 14.6 % High 11.5 - 14.5 % [facility] Hematocrit (Bld) [Volume fraction] 47.4 % 40.0 - 52.0 % [facility] Hemoglobin (Bld) [Mass/Vol] 16.6 g/dL 13.0 - 18.0 g/dL [facility] Immature granulocytes (Bld) [#/Vol] 0.0 10*3/uL NINF - 0.0 10*3/uL [facility] Immature granulocytes/100 WBC (Bld) 0.3 % High NINF - 0.0 % [facility] Interpretation and review of laboratory results Abnormal [facility] Lymphocytes (Bld) [#/Vol] 2.3 10*3/uL 1.0 - 4.3 10*3/uL [facility] Lymphocytes/100 WBC (Bld) 36.3 % 20.0 - 40.0 % [facility] MCH (RBC) [Entitic mass] 33.3 pg 26.0 - 34.0 pg [facility] MCHC (RBC) [Mass/Vol] 35.0 % 32.0 - 36.0 % [facility] MCV (RBC) [Entitic vol] 95.0 fL 80.0 - 98.0 fL [facility] Monocytes (Bld) [#/Vol] 0.9 10*3/uL High 0.0 - 0.8 10*3/uL [facility] Monocytes/100 WBC (Bld) 13.9 % High 2.0 - 10.0 % [facility] Neutrophils (Bld) [#/Vol] 2.9 10*3/uL 1.8 - 7.0 10*3/uL [facility] Neutrophils/100 WBC (Bld) 46.5 % 40.0 - 80.0 % [facility] Platelet mean volume (Bld) [Entitic vol] 8.2 fL 7.4 - 12.4 fL [facility] Comment on above: MPV is a calculated measurement using platelet volume ratio Platelets (Bld) [#/Vol] 254 10*3/uL 140 - 440 10*3/uL [facility] RBC (Bld) [#/Vol] 4.99 10*6/uL 4.40 - 5.90 10*6/uL [facility] WBC (Bld) [#/Vol] 6.3 10*3/uL 3.6 - 10.7 10*3/uL [facility] Comprehensive metabolic 1998 panelon 07-09-2022 Albumin [Mass/Vol] 4.5 g/dL 3.5 - 5.0 g/dL [facility] ALP [Catalytic activity/Vol] 103 U/L 38 - 126 U/L [facility] ALT [Catalytic activity/Vol] 43 U/L 0 - 49 U/L [facility] Anion gap [Moles/Vol] 6 mmol/L 3 - 13 mmol/L [facility] AST [Catalytic activity/Vol] 40 U/L 15 - 46 U/L [facility] Bilirubin [Mass/Vol] 0.4 mg/dL 0.2 - 1 .3 mg/dL [facility] Calcium [Mass/Vol] 8.8 mg/dL 8.4 - 10. 4 mg/dL [facility] Chloride [Moles/Vol] 97 mmol/L Low 98 - 10 7 mmol/L [facility] CO2 [Moles/Vol] 31 mmol/L High 22 - 30 mmol/L [facility] Creatinine [Mass/Vol] 0.74 mg/dL 0.66 - 1.25 mg/dL [facility] GFR/1.73 sq M.predicted MDRD (S/P/Bld) [Vol rate/Area] - PINF [facility] Comment on above: Calculation based on the Chronic Kidney Disease Epidemiology Collaboration (CKD-EPI) equation refit without adjustment for race Glucose [Mass/Vol] 131 mg/dL High 70 - 100 mg/dL [facility] Potassium [Moles/Vol] 4.0 mmol/L 3.5 - 5.1 mmol/L [facility] Protein [Mass/Vol] 7.6 g/dL 6.3 - 8.2 g/dL [facility] Sodium [Moles/Vol] 134 mmol/L Low 135 - 145 mmol/L [facility] Urea nitrogen [Mass/Vol] 6 mg/dL Low 9 - 20 mg/dL [facility] Lipid 1996 panelon 3 Cholesterol [Mass/Vol] 242 mg/dL High NINF - 200 mg/dL [facility] Cholesterol in HDL [Mass/Vol] 70 mg/dL High 40 - 60 mg/dL [facility] Cholesterol in LDL [Mass/Vol] 147 mg/dL High 0 - <100 [facility] Cholesterol.total/Nicole sterol in HDL [Mass ratio] 3 {ratio} [facility] Comment on above: Ref Range: < 3 Low Risk for CHD 3-6 Mod Risk for CHD > 6 High Risk for CHD Triglyceride [Mass/Vol] 126 mg/dL NINF - 150 mg/dL [facility] No Panel Informationon 07-09 Interpretation and review of laboratory results Abnormal [facility] Radiology Study observation (narrative) [facility] PSA Screeningon 07-09-2022 Interpretation and review of laboratory results Normal [facility] Prostate specific Ag [Mass/Vol] 1.035 ng/mL NINF - 4.000 ng/mL [facility] Testing performed on the [employer] 5600 using an immunometric methodology. Results obtained by different methods should not be used interchangeably. [facility] [employer] [facility] XR Shoulder - left 2 Viewson 07-09-2022 Negative examination of the shoulder. Report Dictated on Electronically Signed By: Onesimo Trejo Electronically Signed Date/Time: 07/09/2022 3:01 PM EDT [facility] RADIOLOGY SYSTEM Patient Name: MARIA DE JESUS SÁNCHEZ : 1965 Exam Date/Time: 07/09/2022 14:57 Procedure: XR SHOULDER 2+ VIEWS LEFT Ordering Provider: RASHEED DIANA Reason For Exam: PAIN LEFT SHOULDER, 3 VIEWS: INDICATION: Left shoulder pain COMPARISON: No previous studies are available for comparison. Grashey, axillary and Y views of the left shoulder were obtained. Bone density appears normal. No fracture or dislocation is noted. The joint spaces are within normal limits. There are no significant soft tissue abnormalities. The left lung apex is clear. [facility] Neil Onesimo, DO - 07/09/2022 Patient Name: MARIA DE JESUS HOGAN : 1965 Exam Date/Time: 07/09/2022 14:57 Procedure: XR SHOULDER 2+ VIEWS LEFT Ordering Provider: RASHEED DIANA Reason For Exam: PAIN LEFT SHOULDER, 3 VIEWS: INDICATION: Left shoulder pain COMPARISON: No previous studies are available for comparison. Grashey, axillary and Y views of the left shoulder were obtained. Bone density appears normal. No fracture or dislocation is noted. The joint spaces are within normal limits. There are no significant soft tissue abnormalities. The left lung apex is clear. IMPRESSION: Negative examination of the shoulder. Report Dictated on Electronically Signed By: Onesimo Trejo Electronically Signed Date/Time: 07/09/2022 3:01 PM EDT [facility] XR Shoulder - left 2 ViewsOr dered By: Onesimo Trejo on 07-09-2022 [facility] Work Phone: Phenobarbitalon 10-28-2021 PHENobarbital [Mass/Vol] 17.4 ug/mL Normal 10.0-40.0 [facility] Comment on above: Performed By: #### P HNO3 #### [facility] [address] [place] [address] Comp Metabolic Panelon 10-25 ALP [Catalytic activity/Vol] 105 U/L Normal 38-126 [facility] Comment on above: Performed By: #### A DDON #### [facility] [address] [place] [address] ALT [Catalytic activity/Vol] 76 U/L High 0-49 [facility] Comment on above: Result Comment: The ALT test is performed by an updated assay method. Please note that the reference intervals have been changed and are now sex specific. Performed By: #### A DDON #### [facility] [address] [place] [address] Anion gap [Moles/Vol] 10 mmol/L Normal 3-13 [facility] Comment on above: Performed By: #### A DDON #### [facility] [address] [place] [address] AST [Catalytic activity/Vol] 79 U/L High 15-46 [facility] Comment on above: Performed By: #### A DDON #### [facility] [address] [place] [address] Calcium [Mass/Vol] 8.8 mg/dL Normal 8.4-10.4 [facility] Comment on above: Performed By: #### A DDON #### [facility] [address] [place] [address] CO2 [Moles/Vol] 26 mmol/L Normal 22-30 [facility] Comment on above: Performed By: #### A DDON #### [facility] [address] [place] [address] Glucose [Mass/Vol] 89 mg/dL Normal 70-100 [facility] Comment on above: Performed By: #### A DDON #### [facility] [address] [place] [address] Protein [Mass/Vol] 7.2 g/dL Normal 6.3-8.2 [facility] Comment on above: Performed By: #### A DDON #### [facility] [address] [place] [address] Urea nitrogen [Mass/Vol] 2 mg/dL Low 7-17 [facility] Comment on above: Performed By: #### A DDON #### [facility] [address] [place] [address] Bilirubin [Mass/Vol] 0.4 mg/dL Normal 0.2-1.3 [facility] Comment on above: Performed By: #### A DDON #### [facility] [address] [place] [address] Creatinine [Mass/Vol] 0.62 mg/dL Normal 0.52-1.25 [facility] Comment on above: Performed By: #### A DDON #### [facility] [address] [place] [address] eGFR OTHER > 90.0 Normal >60 [facility] Comment on above: Result Comment: KDIG O guidelines provide the following GFR categories: Stage GFR(ml/min/1.73 m2) Terms G1 >=90 Normal or high G2 60-89 Mildly decreased* G3a 45-59 Mildly to moderately decreased G3b 30-44 Moderately to severely decreased G4 15-29 Severely decreased G5 <15 Kidney failure *Relative to young adult level. In the absence of evidence of kidney damage, neither GFR category G1 nor G2 fulfill the criteria for CKD. The CKD-EPI equation is validated in individuals 18 years of age and older. Currently the best equation for estimating glomerular filtration rate (GFR) from serum creatinine in children is the Bedside Francis equation. It is less accurate in patients with extremes of muscle mass, restriction of dietary protein, ingestion of creatine, extra-renal metabolism of creatinine, or treatment with medications that affect renal tubular creatinine secretion. Performed By: #### A DDON #### [facility] [address] [place] [address] GFR/1.73 sq M.predicted among blacks MDRD (S/P/Bld) [Vol rate/Area] mL/min/{1.73_m2} Normal >60 [facility] Comment on above: Performed By: #### A DDON #### [facility] [address] [place] [address] Albumin [Mass/Vol] 4.3 g/dL Normal 3.5-5.0 [facility] Comment on above: Performed By: #### A DDON #### [facility] [address] [place] [address] Chloride [Moles/Vol] 103 mmol/L Normal 98-107 [facility] Comment on above: Performed By: #### A DDON #### [facility] [address] [place] [address] Potassium [Moles/Vol] 4.2 mmol/L Normal 3.5-5.1 [facility] Comment on above: Performed By: #### A DDON #### [facility] [address] [place] [address] Sodium [Moles/Vol] 139 mmol/L Normal 135-145 [facility] Comment on above: Performed By: #### A DDON #### [facility] [address] [place] [address] Complete Urinalysison 2021 Appearance (U) Clear Normal Clear [facility] Comment on above: Result Comment: . Performed By: #### A DDON #### [facility] [address] [place] [address] Bilirubin,Urine Negative Normal Negative [facility] Comment on above: Result Comment: . Performed By: #### A DDON #### [facility] [address] [place] [address] Color (U) Colorless Normal Lt. Yellow [facility] Comment on above: Result Comment: . Performed By: #### A DDON #### [facility] [address] [place] [address] Glucose Ql (U) Normal Normal Normal (<70) [facility] Comment on above: Result Comment: . Performed By: #### A DDON #### [facility] [address] [place] [address] Ketone,Urine Negative Normal Negative [facility] Comment on above: Result Comment: . Performed By: #### A DDON #### [facility] [address] [place] [address] Leukocytes,Urine Negative Normal Negative [facility] Comment on above: Result Comment: . Performed By: #### A DDON #### [facility] [address] [place] [address] Nitrites,Urine Negative Normal Negative [facility] Comment on above: Result Comment: . Performed By: #### A DDON #### [facility] [address] [place] [address] Occult Blood,Urine Negative Normal Negative [facility] Comment on above: Result Comment: . Performed By: #### A DDON #### [facility] [address] [place] [address] pH,Urine 5.5 Normal 5.0-8.0 [facility] Comment on above: Result Comment: . Performed By: #### A DDON #### [facility] [address] [place] [address] Specific [place],Urine < 1.005 Abnormal 1.005 - 1.030 [facility] Comment on above: Result Comment: . Performed By: #### A DDON #### [facility] [address] [place] [address] Total Protein,Urine Negative Normal Negative [facility] Comment on above: Result Comment: . Performed By: #### A DDON #### [facility] [address] [place] [address] Urobilinogen,Urine Normal Normal Normal (0-1) [facility] Comment on above: Result Comment: . Performed By: #### A DDON #### [facility] [address] [place] [address] Drugs of Abuseon 10-25-2021 Opiates, Ur Negative Normal [facility] Comment on above: Performed By: #### A DDON #### [facility] [address] [place] [address] Phencyclidine (PCP), Ur Negative Normal [facility] Comment on above: Result Comment: The expected value for all of the drugs listed above is Negative. The following drugs or drug groups have been screened for by Immunoassay at the following thresholds: Amphetamine class (1000 ng/mL), Barbiturates (200 ng/mL), Benzodiazepines (200 ng/mL), Cocaine (300 ng/mL), Methadone (300 ng/mL), Opiates (300 ng/mL), Oxycodone (100 ng/mL), and PCP (25 ng/mL). NOTE: These results are for medical treatment only. Analysis performed using non-forensic procedures. POSITIVE results are NOT confirmed by a more specific alternative method unless requested. If confirmation is needed, request confirmation under separate order. Performed By: #### A DDON #### [facility] [address] [place] [address] Methadone, Ur Negative [facility] Comment on above: Performed By: #### A DDON #### [facility] [address] [place] [address] Benzodiazepines, Ur Negative Normal [facility] Comment on above: Performed By: #### A DDON #### [facility] [address] [place] [address] Cocaine, Ur Negative Normal [facility] Comment on above: Performed By: #### A DDON #### [facility] [address] [place] [address] Barbiturates, Ur Negative Normal [facility] Comment on above: Performed By: #### A DDON #### [facility] [address] [place] [address] Amphetamines, Ur Negative Normal [facility] Comment on above: Performed By: #### A DDON #### [address] [place] [address] Oxycodone/Oxymorphine,U r Negative Normal [facility] Comment on above: Performed By: #### A DDON #### [address] [place] [address] ED Provider Noteon 2 ED Provider Note Emergency Department Encounter [facility] Patient: Maria De Jesus Hogan : 1965 Date of Evaluation: 10/25/2021 ED Supervising Physician: Harjinder Saeed MD I independently examined and evaluated Maria De Jesus Hogan. In brief, Maria De Jesus Hogan is a 55 y.o. male PMH chronic alcohol use, hypertension, reports history of neuropathy on gabapentin, presents with concern for detox. Patient reports he is drinking beer daily, presents seeking detox, reports he drank just prior to arrival, endorses feeling anxious and restless, otherwise denies symptoms including fever chills, cough, chest pain, shortness of breath, nausea vomiting, tremulousness, weakness throughout the extremities. Patient reports numbness in his feet bilaterally that has been ongoing for several months for which he is being treated with gabapentin, unchanged. Patient denies other intoxicating substance use, denies intention to harm self or others. Patient denies hematochezia or melena. Focused exam: Note: Patient evaluated after being treated with Ativan. General: no apparent discomfort, well appearing HEENT: airway patent, mucous membranes moist Cardiovascular: regular rhythm, normal rate, symmetrical DP pulses palpable Respiratory: non-labored breathing, breath sounds clear Gastrointestinal: soft, non-distended, non-tender to palpation throughout Extremities: no obvious deformity, non edematous Neurologic: alert, no obvious neurologic deficits, mildly slurred speech, moves all extremities, gross sensation intact bilateral upper and lower extremities, no tongue fasciculation, no tremulousness Psych: Cooperative, no suicidal homicidal ideation Brief ED course/MDM: Patient is a 55-year-old male, presents as above, daily alcohol use, seeking detox, drank just prior to arrival, denies other intoxicating substance use, intentional harm self or others, denies any acute somatic complaints, he is afebrile, reassuring vitals, I evaluated patient after he was treated with Ativan, work-up initiated for medical clearance with plan for inpatient detox admission at [facility] pending bed availability, patient in agreement with plan. Will treat with Ativan as needed for alcohol withdrawal. Labs reviewed, notable for no renal dysfunction, mild transaminitis improved from prior evaluation, ethanol elevated 0.393, UDS negative, no leukocytosis, hemoglobin for normal limits, platelets 170, COVID-negative I, Dr. Saeed, am the primary physician of record. All diagnostic, treatment, and disposition decisions were made by myself in conjunction with the [facility]. For all further details of the patient's emergency department visit, please see their documentation. I personally saw the patient and performed a substantive portion of the visit including all aspects of medical decision making. (Please note that portions of this note may have been completed with a voice recognition program. Efforts were made to edit the dictations but occasionally words are mis-transcribed.) Harjinder Saeed MD Acute Care [facility] Harjinder Saeed MD 10/25/211918 [facility] ED Provider Note [facility] [place] ED eMERGENCY dEPARTMENT eNCOUnter Pt Name: Maria De Jesus Hogan Birthdate 1965 Date of evaluation: 10/25/2021 Provider: NEVA HAMILTON CHIEF COMPLAINT Chief Complaint Patient presents with Alcohol Intoxication HISTORY OF PRESENT ILLNESS (Location/Symptom, Timing/Onset,Context/Setti ng, Quality, Duration, Modifying Factors, Severity) Note limiting factors. HPI This patient was seen in conjunction with Dr. Saeed who also interviewed and evaluated the patient at bedside. Maria De Jesus Hogan is a 55 y.o. male who presents to the emergency department requesting admission for alcohol detox. Patient was recently admitted to the hospital for GI bleed. That is the second time this year. He had an endoscopy done during his stay but no source of the bleeding was discovered. He was also seen by the addiction medicine physician, Dr. Rodriguez during his stay. He has had no further outpatient follow-up. He states his last drink was a little over an hour ago. He states he drinks beer from when he gets up in the morning till he goes to bed. He states he will typically start getting shaky within a couple hours after his last drink but he has never had an alcoholic withdrawal seizure. Nursing Notes were reviewed. REVIEW OF SYSTEMS (2+ for4; 10+ for level 5) Review of Systems Constitutional: Negative for chills, diaphoresis and fever. HENT: Negative for congestion, ear pain, facial swelling, rhinorrhea and sore throat. Eyes: Negative for photophobia, pain and visual disturbance. Respiratory: Negative for cough, chest tightness, shortness of breath and wheezing. Cardiovascular: Negative for chest pain and leg swelling. Gastrointestinal: Negative for abdominal pain, constipation, diarrhea, nausea and vomiting. Genitourinary: Negative for difficulty urinating, dysuria, flank pain, frequency, hematuria and urgency. Musculoskeletal: Negative for arthralgias, back pain, myalgias and neck pain. Skin: Negative for rash. Neurological: Negative for dizziness and headaches. Psychiatric/Behavioral: Negative for suicidal ideas. PAST MEDICAL HISTORY Past Medical History: Diagnosis Date Alcohol abuse Alcohol dependence with withdrawal ([facility]) 08/31/2019 Alcohol intoxication without use disorder, uncomplicated ([facility]) 10/01/2019 Alcohol withdrawal, uncomplicated ([facility]) 08/31/2019 Alcohol withdrawal, with unspecified complication ([facility]) 10/02/2019 Alcohol withdrawal, with unspecified complication ([facility]) 10/02/2019 Alcoholism ([facility]) Anxiety Cerebral artery occlusion with cerebral infarction ([facility]) Cerebrovascular disease Depression Hypertension Insomnia SURGICALHISTORY Past Surgical History: Procedure Laterality Date CYST REMOVAL face ENDOSCOPY, COLON, DIAGNOSTIC 06/10/2020 EGD/Dr Madison/AMANDA UPPER GASTROINTESTINAL ENDOSCOPY 09/27/2021 normal WISDOM TOOTH EXTRACTION CURRENT MEDICATIONS Previous Medications ALBUTEROL SULFATE HFA (PROAIR HFA) 108 (90 BASE) MCG/ACT INHALER Inhale 2 puffs into the lungs every 6 hours as needed for Wheezing AMLODIPINE (NORVASC) 5 MG TABLET Take 1 tablet by mouth daily CALCIPOTRIENE (DOVONEX) 0.005 % OINTMENT Apply topically 2 times daily. CLOBETASOL (TEMOVATE) 0.05 % CREAM Apply topically 2 times daily. GABAPENTIN (NEURONTIN) 600 MG TABLET Take 1 tablet by mouth 3 times daily for 30 days. PANTOPRAZOLE (PROTONIX) 40 MG TABLET Take 1 tablet by mouth every morning (before breakfast) PREDNISONE (DELTASONE) 10 MG TABLET Take 2 tabs daily for 3 days, then 1 tabs daily for 3 days, then 0.5 tab daily for 3 days ROSUVASTATIN (CRESTOR) 10 MG TABLET Take 1 tablet by mouth nightly Bee venom, Venomil honey bee venom [honey bee venom], Nickel, Other, and Ultram [tramadol] FAMILY HISTORY Family History Problem Relation Age of Onset Cancer Mother colon rectal cancer; dx after age 50 Other Mother alcoholism Other Father h/o rheumatic fever, cardiac arrest due to bee sting Depression Sister Other Sister agoraphobia SOCIAL HISTORY Social History Socioeconomic History Marital status: Tobacco Use Smoking status: Every Day Packs/day: 1.50 Years: 17.00 Pack years: 25.50 Types: Cigarettes Smokeless tobacco: Never Vaping Use Vaping Use: Never used Substance and Sexual Activity Alcohol use: Yes Comment: 25oz cans beer 9-10 per day Drug use: No SCREENINGS [place] Coma Scale Eye Opening: Spontaneous Best Verbal Response: Oriented Best Motor Response: Obeys commands [place] Coma Scale Score: 15 PHYSICAL EXAM (5+ for level 4, 8+ for level 5) ED Triage Vitals BP Temp Temp Source Heart Rate Resp SpO2 Height Weight 10/25/21 1652 10/25/21 1652 10/25/21 1652 10/25/21 1652 10/25/21 1653 10/25/21 1652 10/25/21 1653 10/25/21 1653 (!) 139/95 98 ?F (36.7 ?C) Temporal 91 18 92 % 5' 10 (1.778 m) 185 lb (83.9 kg) Physical Exam Vitals and nursing note reviewed. Constitutio (more content not included)... Normal [facility] Ethanol Serum/Plasmaon 10-25 Ethanol-Serum/Plasma 0.393 g/dL Critically high 0.00 0-0.01 0 [facility] Comment on above: Result Comment: NOTE : This result is for medical treatment only. Analysis performed using non-forensic procedures. Performed By: #### A DDON #### [facility] [address] [place] [address] Hemogram w/ Autodiffon 10-25 Abs Baso Cnt 0.0 10*3/uL Normal 0.0-0.2 [facility] Comment on above: Performed By: #### A DDON #### [facility] [address] [place] [address] Abs Neutrophile Cnt 2.2 10*3/uL Normal 1.8-7.0 [facility] Comment on above: Performed By: #### A DDON #### [facility] [address] [place] [address] Basophils/100 WBC (Bld) 1.0 % Normal 0.0-2.0 [facility] Comment on above: Performed By: #### A DDON #### [facility] [address] [place] [address] Eosinophils (Bld) [#/Vol] 0.1 10*3/uL Normal 0.0-0.5 [facility] Comment on above: Performed By: #### A DDON #### [facility] [address] [place] [address] Eosinophils/100 WBC (Bld) 1.9 % Normal 1.0-6.0 [facility] Comment on above: Performed By: #### A DDON #### [facility] [address] [place] [address] Erythrocyte distribution width (RBC) [Ratio] 14.0 % Normal 11.5-14.5 [facility] Comment on above: Performed By: #### A DDON #### [facility] [address] [place] [address] Granulocytes/100 WBC (Bld) 45.6 % Normal 40.0-80.0 [facility] Comment on above: Performed By: #### A DDON #### [facility] [address] [place] [address] Hematocrit (Bld) [Volume fraction] 46.1 % Normal 40.0-52.0 [facility] Comment on above: Performed By: #### A DDON #### [facility] [address] [place] [address] Hemoglobin (Bld) [Mass/Vol] 15.7 g/dL Normal 13.0-18.0 [facility] Comment on above: Performed By: #### A DDON #### [facility] [address] [place] [address] Lymphocytes (Bld) [#/Vol] 1.8 10*3/uL Normal 1.0-4.3 [facility] Comment on above: Performed By: #### A DDON #### [facility] [address] [place] [address] Lymphocytes/100 WBC (Bld) 38.9 % Normal 20.0-40.0 [facility] Comment on above: Performed By: #### A DDON #### [facility] [address] [place] [address] MCH (RBC) [Entitic mass] 33.8 pg Normal 26.0-34.0 [facility] Comment on above: Performed By: #### A DDON #### [facility] [address] [place] [address] MCHC 34.0 % Normal 32.0-36.0 [facility] Comment on above: Performed By: #### A DDON #### [facility] [address] [place] [address] MCV (RBC) [Entitic vol] 99.1 fL High 80.0-98.0 [facility] Comment on above: Performed By: #### A DDON #### [facility] [address] [place] [address] Monocytes (Bld) [#/Vol] 0.6 10*3/uL Normal 0.0-0.8 [facility] Comment on above: Performed By: #### A DDON #### [facility] [address] [place] [address] Monocytes/100 WBC (Bld) 12.6 % High 2.0-10.0 [facility] Comment on above: Performed By: #### A DDON #### [facility] [address] [place] [address] Platelet mean volume (Bld) [Entitic vol] 6.8 fL Low 7.4-12.4 [facility] Comment on above: Result Comment: MPV is a calculated measurement using platelet volume ratio. Performed By: #### A DDON #### [facility] [address] [place] [address] Platelets (Bld) [#/Vol] 170 10*3/uL Normal 140-440 [facility] Comment on above: Performed By: #### A DDON #### [facility] [address] [place] [address] RBC (Bld) [#/Vol] 4.65 10*6/uL Normal 4.40-5.90 [facility] Comment on above: Performed By: #### A DDON #### [facility] [address] [place] [address] WBC (Bld) [#/Vol] 4.7 10*3/uL Normal 3.6-10.7 [facility] Comment on above: Performed By: #### A DDON #### [facility] [address] [place] [address] SARS-CoV-2 Antigenon 022 SARS-CoV-2 Antigen Negative Normal Negative [facility] Comment on above: Result Comment: A negative result does not rule out the possibility of SARS-CoV-2 infection. NAAT-based methods should be considered for symptomatic patients presenting greater than seven days after onset of symptoms. Method: Lateral flow immunoassay. Fact sheets for healthcare providers and patients can be found at the following sites: https://www.fda.gov/media/248593/download https://www.fda.gov/media/334017/download Performed By: #### A DDON #### [facility] [address] [place] [address] CBC with Auto Differentialon 09-29-2021 Absolute Baso # 0.0 10*3/uL 0.0 - 0.2 10*3/uL [facility] Absolute Neut # 2.1 10*3/uL 1.8 - 7.0 10*3/uL [facility] Basophils/100 WBC (Bld) 1.0 % 0.0 - 2.0 % [facility] Eosinophils (Bld) [#/Vol] 0.1 10*3/uL 0.0 - 0.5 10*3/uL [facility] Eosinophils/100 WBC (Bld) 2.6 % 1.0 - 6.0 % [facility] Granulocytes/100 WBC (Bld) 52.6 % 40.0 - 80.0 % [facility] Hematocrit (Bld) [Volume fraction] 42.3 % 40.0 - 52.0 % [facility] Hemoglobin (Bld) [Mass/Vol] 14.5 g/dL 13.0 - 18.0 g/dL [facility] Interpretation and review of laboratory results Abnormal [facility] Lymphocytes (Bld) [#/Vol] 1.3 10*3/uL 1.0 - 4.3 10*3/uL [facility] Lymphocytes/100 WBC (Bld) 32.7 % 20.0 - 40.0 % [facility] MCH (RBC) [Entitic mass] 33.8 pg 26.0 - 34.0 pg [facility] MCHC (RBC) [Mass/Vol] 34.2 % 32.0 - 36.0 % [facility] MCV (RBC) [Entitic vol] 98.8 fL High 80.0 - 98.0 fL [facility] Monocytes (Bld) [#/Vol] 0.4 10*3/uL 0.0 - 0.8 10*3/uL [facility] Monocytes/100 WBC (Bld) 11.1 % High 2.0 - 10.0 % [facility] Platelet distribution width (Bld) [Ratio] 14.3 % 11.5 - 14.5 % [facility] Platelet mean volume (Bld) [Entitic vol] 7.6 fL 7.4 - 12.4 fL [facility] Comment on above: MPV is a calculated measurement using platelet volume ratio. Platelets (Bld) [#/Vol] 139 10*3/uL Low 140 - 440 10*3/uL [facility] RBC (Bld) [#/Vol] 4.28 10*6/uL Low 4.40 - 5.90 10*6/uL [facility] WBC (Bld) [#/Vol] 4.0 10*3/uL 3.6 - 10.7 10*3/uL [facility] Test Performed by [facility], [address] [place], [place] [address] [facility] Comp Metabolic Panelon 09-29 Anion gap [Moles/Vol] 5 mmol/L Normal 3-13 [facility] Comment on above: Performed By: #### H GHCT #### [facility] [address] [place] [address] Chloride [Moles/Vol] 96 mmol/L Low 98-107 [facility] Comment on above: Performed By: #### H GHCT #### [facility] [address] [place] [address] ALP [Catalytic activity/Vol] 95 U/L Normal 38-126 [facility] Comment on above: Performed By: #### H GHCT #### [facility] [address] [place] [address] ALT [Catalytic activity/Vol] 140 U/L High 0-49 [facility] Comment on above: Result Comment: The ALT test is performed by an updated assay method. Please note that the reference intervals have been changed and are now sex specific. Performed By: #### H GHCT #### [facility] [address] [place] [address] AST [Catalytic activity/Vol] 133 U/L High 15-46 [facility] Comment on above: Performed By: #### H GHCT #### [facility] [address] [place] [address] Bilirubin [Mass/Vol] 0.9 mg/dL Normal 0.2-1.3 [facility] Comment on above: Performed By: #### H GHCT #### [facility] [address] [place] [address] Calcium [Mass/Vol] 8.5 mg/dL Normal 8.4-10.4 [facility] Comment on above: Performed By: #### H GHCT #### [facility] [address] [place] [address] Glucose [Mass/Vol] 99 mg/dL Normal 70-100 [facility] Comment on above: Performed By: #### H GHCT #### [facility] [address] [place] [address] Protein [Mass/Vol] 6.8 g/dL Normal 6.3-8.2 [facility] Comment on above: Performed By: #### H GHCT #### [facility] [address] [place] [address] Urea nitrogen [Mass/Vol] mg/dL Low 7-17 [facility] Comment on above: Performed By: #### H GHCT #### [facility] [address] [place] [address] CO2 [Moles/Vol] 34 mmol/L High 22-30 [facility] Comment on above: Performed By: #### H GHCT #### [facility] [address] [place] [address] Creatinine [Mass/Vol] 0.61 mg/dL Normal 0.52-1.25 [facility] Comment on above: Performed By: #### H GHCT #### [facility] [address] [place] [address] eGFR OTHER > 90.0 Normal >60 [facility] Comment on above: Result Comment: KDIG O guidelines provide the following GFR categories: Stage GFR(ml/min/1.73 m2) Terms G1 >=90 Normal or high G2 60-89 Mildly decreased* G3a 45-59 Mildly to moderately decreased G3b 30-44 Moderately to severely decreased G4 15-29 Severely decreased G5 <15 Kidney failure *Relative to young adult level. In the absence of evidence of kidney damage, neither GFR category G1 nor G2 fulfill the criteria for CKD. The CKD-EPI equation is validated in individuals 18 years of age and older. Currently the best equation for estimating glomerular filtration rate (GFR) from serum creatinine in children is the Bedside Francis equation. It is less accurate in patients with extremes of muscle mass, restriction of dietary protein, ingestion of creatine, extra-renal metabolism of creatinine, or treatment with medications that affect renal tubular creatinine secretion. Performed By: #### H GHCT #### [facility] [address] [place] [address] GFR/1.73 sq M.predicted among blacks MDRD (S/P/Bld) [Vol rate/Area] mL/min/{1.73_m2} Normal >60 [facility] Comment on above: Performed By: #### H GHCT #### [facility] [address] [place] [address] Potassium [Moles/Vol] 4.0 mmol/L Normal 3.5-5.1 [facility] Comment on above: Performed By: #### H GHCT #### [facility] [address] [place] [address] Sodium [Moles/Vol] 133 mmol/L Low 135-145 [facility] Comment on above: Performed By: #### H GHCT #### [facility] [address] [place] [address] Albumin [Mass/Vol] 4.1 g/dL Normal 3.5-5.0 [facility] Comment on above: Performed By: #### H GHCT #### [facility] [address] [place] [address] Comprehensive Metabolic Pane arnulfo 09-29-2021 Albumin [Mass/Vol] 4.1 g/dL 3.5 - 5.0 g/dL [facility] ALP (Bld) [Catalytic activity/Vol] 95 U/L 38 - 126 U/L [facility] ALT [Catalytic activity/Vol] 140 U/L High 0 - 49 U/L [facility] Comment on above: The ALT test is perf ormed by an updated assay method. Please note that the reference intervals have been changed and are now sex specific. Anion gap [Moles/Vol] 5 mmol/L 3 - 13 mmol/L [facility] AST [Catalytic activity/Vol] 133 U/L High 15 - 46 U/L [facility] Bilirubin [Mass/Vol] 0.9 mg/dL 0.2 - 1 .3 mg/dL [facility] Calcium [Mass/Vol] 8.5 mg/dL 8.4 - 10. 4 mg/dL [facility] Chloride [Moles/Vol] 96 mmol/L Low 98 - 10 7 mmol/L [facility] CO2 [Moles/Vol] 34 mmol/L High 22 - 30 mmol/L [facility] Creatinine [Mass/Vol] 0.61 mg/dL 0.52 - 1.25 mg/dL [facility] EGFR IF NonAfrican Marshallese >90.0 >60 mL/min [facility] Comment on above: KDIGO guidelines pro vide the following GFR categories: Stage GFR(ml/min/1.73 m2) Terms G1 >=90 Normal or high G2 60-89 Mildly decreased* G3a 45-59 Mildly to moderately decreased G3b 30-44 Moderately to severely decreased G4 15-29 Severely decreased G5 <15 Kidney failure *Relative to young adult level. In the absence of evidence of kidney damage, neither GFR category G1 nor G2 fulfill the criteria for CKD. The CKD-EPI equation is validated in individuals 18 years of age and older. Currently the best equation for estimating glomerular filtration rate (GFR) from serum creatinine in children is the Bedside Francis equation. It is less accurate in patients with extremes of muscle mass, restriction of dietary protein, ingestion of creatine, extra-renal metabolism of creatinine, or treatment with medications that affect renal tubular creatinine secretion. Free PSA/Total PSA [Mass fraction] 6.8 g/dL 6.3 - 8.2 g/dL [facility] GFR/1.73 sq M.predicted among blacks MDRD (S/P/Bld) [Vol rate/Area] mL/min/{1.73_m2} >60 mL/min [facility] Glucose [Mass/Vol] 99 mg/dL 70 - 100 mg/dL [facility] Interpretation and review of laboratory results Abnormal [facility] Potassium [Moles/Vol] 4.0 mmol/L 3.5 - 5.1 mmol/L [facility] Sodium [Moles/Vol] 133 mmol/L Low 135 - 145 mmol/L [facility] Urea nitrogen (BldV) [Mass/Vol] <2 Low 7 - 17 mg/dL [facility] Test Performed by [facility], [address] [place], [place] [id number] [place] [address] LAB [facility] Hemogram w/ Autodiffon 09-29 Abs Baso Cnt 0.0 10*3/uL Normal 0.0-0.2 [facility] Comment on above: Performed By: #### A DDON #### [facility] [address] [place] [address] Abs Neutrophile Cnt 2.1 10*3/uL Normal 1.8-7.0 [facility] Comment on above: Performed By: #### A DDON #### [facility] [address] [place] [address] Basophils/100 WBC (Bld) 1.0 % Normal 0.0-2.0 [facility] Comment on above: Performed By: #### A DDON #### [facility] [address] [place] [address] Eosinophils (Bld) [#/Vol] 0.1 10*3/uL Normal 0.0-0.5 [facility] Comment on above: Performed By: #### A DDON #### [facility] [address] [place] [address] Eosinophils/100 WBC (Bld) 2.6 % Normal 1.0-6.0 [facility] Comment on above: Performed By: #### A DDON #### [facility] [address] [place] [address] Erythrocyte distribution width (RBC) [Ratio] 14.3 % Normal 11.5-14.5 [facility] Comment on above: Performed By: #### A DDON #### [facility] [address] [place] [address] Granulocytes/100 WBC (Bld) 52.6 % Normal 40.0-80.0 [facility] Comment on above: Performed By: #### A DDON #### [facility] [address] [place] [address] Hematocrit (Bld) [Volume fraction] 42.3 % Normal 40.0-52.0 [facility] Comment on above: Performed By: #### A DDON #### [facility] [address] [place] [address] Hemoglobin (Bld) [Mass/Vol] 14.5 g/dL Normal 13.0-18.0 [facility] Comment on above: Performed By: #### A DDON #### [facility] [address] [place] [address] Lymphocytes (Bld) [#/Vol] 1.3 10*3/uL Normal 1.0-4.3 [facility] Comment on above: Performed By: #### A DDON #### [facility] [address] [place] [address] Lymphocytes/100 WBC (Bld) 32.7 % Normal 20.0-40.0 [facility] Comment on above: Performed By: #### A DDON #### [facility] [address] [place] [address] MCH (RBC) [Entitic mass] 33.8 pg Normal 26.0-34.0 [facility] Comment on above: Performed By: #### A DDON #### [facility] [address] [place] [address] MCHC 34.2 % Normal 32.0-36.0 [facility] Comment on above: Performed By: #### A DDON #### [facility] [address] [place] [address] MCV (RBC) [Entitic vol] 98.8 fL High 80.0-98.0 [facility] Comment on above: Performed By: #### A DDON #### [facility] [address] [place] [address] Monocytes (Bld) [#/Vol] 0.4 10*3/uL Normal 0.0-0.8 [facility] Comment on above: Performed By: #### A DDON #### [facility] [address] [place] [address] Monocytes/100 WBC (Bld) 11.1 % High 2.0-10.0 [facility] Comment on above: Performed By: #### A DDON #### [facility] [address] [place] [address] Platelet mean volume (Bld) [Entitic vol] 7.6 fL Normal 7.4-12.4 [facility] Comment on above: Result Comment: MPV is a calculated measurement using platelet volume ratio. Performed By: #### A DDON #### [facility] [address] [place] [address] Platelets (Bld) [#/Vol] 139 10*3/uL Low 140-440 [facility] Comment on above: Performed By: #### A DDON #### [facility] [address] [place] [address] RBC (Bld) [#/Vol] 4.28 10*6/uL Low 4.40-5.90 [facility] Comment on above: Performed By: #### A DDON #### [facility] [address] [place] [address] WBC (Bld) [#/Vol] 4.0 10*3/uL Normal 3.6-10.7 [facility] Comment on above: Performed By: #### A DDON #### [facility] [address] [place] [address] Hepatic Functionon 2 Bilirubin.indirect [Mass/Vol] 0.0 mg/dL Normal 0.0-0.3 [facility] Comment on above: Performed By: #### A DDON #### [facility] [address] [place] [address] Hepatic Function Panelon Bilirubin.indirect [Mass/Vol] 0.0 mg/dL 0.0 - 0.3 mg/dL [facility] Test Performed by [facility], [address] [facility] Phenobarbitalon 09-29-2021 PHENobarbital [Mass/Vol] 15.1 ug/mL Normal 10.0-40.0 [facility] Comment on above: Performed By: #### H GHCT #### [facility] [address] [place] [address] Phenobarbital Levelon 2021 PHENobarbital [Mass/Vol] 15.1 ug/mL 10.0 - 40.0 ug/mL [facility] Test Performed by [facility], [address] [place] [id number] [place] [address] LAB [facility] APTTon 09-27-2021 aPTT Coag (Bld) [Time] 26.3 s Normal 20.0-30.5 [facility] Comment on above: Result Comment: NOTE : The therapeutic time for Heparin anticoagulation, based on Xa activity inhibition, is an APTT of 46-80 seconds. Performed By: #### C OVAG #### [facility] [address] [place] [address] aPTT Coag (Bld) [Time] 26.3 s 20.0 - 30.5 s [facility] Comment on above: NOTE: The therapeuti c time for Heparin anticoagulation, based on Xa activity inhibition, is an APTT of 46-80 seconds. Test Performed by [facility], [address] LAB [facility] Ferritinon 09-27-2021 Ferritin [Mass/Vol] 669 ng/mL High 18-464 [facility] Comment on above: Performed By: #### A DDON #### [facility] [address] [place] [address] Ferritin [Mass/Vol] 669 ng/mL High 18 - 464 ng/mL [facility] Interpretation and review of laboratory results Abnormal [facility] Test Performed by [facility], [address] [place] [address] [facility] HM ENDOSCOPY REPORTon 2021 Ordered by an unspec ified provider. [facility] Hemoglobin AND Hematocriton 09-27-2021 Hematocrit (Bld) [Volume fraction] 43.0 % Normal 40.0-52.0 [facility] Comment on above: Performed By: #### H GHCT #### [facility] [address] [place] [address] Hemoglobin (Bld) [Mass/Vol] 14.7 g/dL Normal 13.0-18.0 [facility] Comment on above: Performed By: #### H GHCT #### [facility] [address] [place] [address] Hemoglobin and Hematocriton 09-27-2021 Hematocrit (Bld) [Volume fraction] 43.0 % 40.0 - 52.0 % [facility] Hemoglobin (Bld) [Mass/Vol] 14.7 g/dL 13.0 - 18.0 g/dL [facility] Test Performed by [facility], [address] [place] [address] [facility] Iron AND TIBCon 09-27-2021 Saturation 50 % Normal 15-50 [facility] Comment on above: Performed By: #### C OVAG #### [facility] [address] [place] [address] Total Iron Binding Cap. 191 ug/dL Low 261-497 [facility] Comment on above: Performed By: #### C OVAG #### [facility] [address] [place] [address] Iron, Total 95 ug/dL Normal 49-181 [facility] Comment on above: Performed By: #### C OVAG #### [facility] [address] [place] [address] Iron and TIBCon 09-27-2021 Interpretation and review of laboratory results Abnormal [facility] Iron [Mass/Vol] 95 ug/dL 49 - 181 ug/dL [facility] Sat 50 % 15 - 50 % [facility] TIBC 191 ug/dL Low 261 - 497 ug/dL [facility] Test Performed by [facility], [address], [address] [facility] Lactic Acidon 09-27-2021 Lactate [Moles/Vol] 1.4 mmol/L Normal 0.7-2.0 [facility] Comment on above: Performed By: #### A DDON #### [facility] [address] [place] [address] Lactate [Moles/Vol] 1.4 mmol/L 0.7 - 2. 0 mmol/L [facility] Test Performed by [facility], [address] [place], [address] LAB [facility] CBC with Auto Differentialon 09-26-2021 Absolute Baso # 0.1 10*3/uL 0.0 - 0.2 10*3/uL [facility] Absolute Neut # 2.0 10*3/uL 1.8 - 7.0 10*3/uL [facility] Basophils/100 WBC (Bld) 1.7 % 0.0 - 2.0 % [facility] Eosinophils (Bld) [#/Vol] 0.0 10*3/uL 0.0 - 0.5 10*3/uL [facility] Eosinophils/100 WBC (Bld) 0.7 % Low 1.0 - 6.0 % [facility] Granulocytes/100 WBC (Bld) 46.7 % 40.0 - 80.0 % [facility] Hematocrit (Bld) [Volume fraction] 45.9 % 40.0 - 52.0 % [facility] Hemoglobin (Bld) [Mass/Vol] 16.8 g/dL 13.0 - 18.0 g/dL [facility] Interpretation and review of laboratory results Abnormal [facility] Lymphocytes (Bld) [#/Vol] 1.5 10*3/uL 1.0 - 4.3 10*3/uL [facility] Lymphocytes/100 WBC (Bld) 34.8 % 20.0 - 40.0 % [facility] MCH (RBC) [Entitic mass] 33.9 pg 26.0 - 34.0 pg [facility] MCHC (RBC) [Mass/Vol] 36.6 % High 32.0 - 36.0 % [facility] MCV (RBC) [Entitic vol] 92.7 fL 80.0 - 98.0 fL [facility] Monocytes (Bld) [#/Vol] 0.7 10*3/uL 0.0 - 0.8 10*3/uL [facility] Monocytes/100 WBC (Bld) 16.1 % High 2.0 - 10.0 % [facility] Platelet distribution width (Bld) [Ratio] 13.3 % 11.5 - 14.5 % [facility] Platelet mean volume (Bld) [Entitic vol] 8.8 fL 7.4 - 12.4 fL [facility] Comment on above: MPV is a calculated measurement using platelet volume ratio. Platelets (Bld) [#/Vol] 189 10*3/uL 140 - 440 10*3/uL [facility] RBC (Bld) [#/Vol] 4.95 10*6/uL 4.40 - 5.90 10*6/uL [facility] WBC (Bld) [#/Vol] 4.2 10*3/uL 3.6 - 10.7 10*3/uL [facility] CR Chest Portableon 09-27-19 22 CR Chest Portable Patient Name: MARIA DE JESUS SÁNCHEZ Diagnostic Radiology ACCESSION EXAM DATE/TIME PROCEDURE ORDERING PROVIDER [id number] 09/26/2021 19:48 EDT CR Chest Portable [id number] DIPESH MCKEON CPT code 25651 Reason For Exam (CR Chest Portable) epigastric pain Report CHEST SINGLE VIEW CLINICAL INFORMATION: Vomiting, epigastric pain, status post two packs a day A frontal view of the chest was obtained. No acute pulmonary disease is noted. The cardiovascular silhouette is within normal limits. IMPRESSION: No acute pulmonary disease. Report Dictated on Final Dictating Physician: MD GAY WILLIAM Signed Date and Time: 09/26/2021 7:58 pm Signed by: MD GAY WILLIAM Transcribed Date and Time: 09/26/2021 7:59 Normal [facility] Comp Metabolic Panelon 09-26 ALP [Catalytic activity/Vol] 120 U/L Normal 38-126 [facility] Comment on above: Performed By: #### H GHCT #### [facility] [address] [place] [address] ALT [Catalytic activity/Vol] 156 U/L High 0-49 [facility] Comment on above: Result Comment: The ALT test is performed by an updated assay method. Please note that the reference intervals have been changed and are now sex specific. Performed By: #### H GHCT #### [facility] [address] [place] [address] Anion gap [Moles/Vol] 15 mmol/L High 3-13 [facility] Comment on above: Performed By: #### H GHCT #### [facility] [address] [place] [address] AST [Catalytic activity/Vol] 159 U/L High 15-46 [facility] Comment on above: Performed By: #### H GHCT #### [facility] [address] [place] [address] Bilirubin [Mass/Vol] 0.6 mg/dL Normal 0.2-1.3 [facility] Comment on above: Performed By: #### H GHCT #### [facility] [address] [place] [address] Calcium [Mass/Vol] 9.4 mg/dL Normal 8.4-10.4 [facility] Comment on above: Performed By: #### H GHCT #### [facility] [address] [place] [address] CO2 [Moles/Vol] 24 mmol/L Normal 22-30 [facility] Comment on above: Performed By: #### H GHCT #### [facility] [address] [place] [address] Glucose [Mass/Vol] 95 mg/dL Normal 70-100 [facility] Comment on above: Performed By: #### H GHCT #### [facility] [address] [place] [address] Protein [Mass/Vol] 7.5 g/dL Normal 6.3-8.2 [facility] Comment on above: Performed By: #### H GHCT #### [facility] [address] [place] [address] Urea nitrogen [Mass/Vol] 5 mg/dL Low 7-17 [facility] Comment on above: Performed By: #### H GHCT #### [facility] [address] [place] [address] Creatinine [Mass/Vol] 0.64 mg/dL Normal 0.52-1.25 [facility] Comment on above: Performed By: #### H GHCT #### [facility] [address] [place] [address] eGFR OTHER > 90.0 Normal >60 [facility] Comment on above: Result Comment: KDIG O guidelines provide the following GFR categories: Stage GFR(ml/min/1.73 m2) Terms G1 >=90 Normal or high G2 60-89 Mildly decreased* G3a 45-59 Mildly to moderately decreased G3b 30-44 Moderately to severely decreased G4 15-29 Severely decreased G5 <15 Kidney failure *Relative to young adult level. In the absence of evidence of kidney damage, neither GFR category G1 nor G2 fulfill the criteria for CKD. The CKD-EPI equation is validated in individuals 18 years of age and older. Currently the best equation for estimating glomerular filtration rate (GFR) from serum creatinine in children is the Bedside Francis equation. It is less accurate in patients with extremes of muscle mass, restriction of dietary protein, ingestion of creatine, extra-renal metabolism of creatinine, or treatment with medications that affect renal tubular creatinine secretion. Performed By: #### H GHCT #### [facility] [address] [place] [address] GFR/1.73 sq M.predicted among blacks MDRD (S/P/Bld) [Vol rate/Area] mL/min/{1.73_m2} Normal >60 [facility] Comment on above: Performed By: #### H GHCT #### [facility] [address] [place] [address] Potassium [Moles/Vol] 4.0 mmol/L Normal 3.5-5.1 [facility] Comment on above: Performed By: #### H GHCT #### [facility] [address] [place] [address] Albumin [Mass/Vol] 4.6 g/dL Normal 3.5-5.0 [facility] Comment on above: Performed By: #### H GHCT #### [facility] [address] [place] [address] Chloride [Moles/Vol] 94 mmol/L Low 98-107 [facility] Comment on above: Performed By: #### H GHCT #### [facility] [address] [place] [address] Sodium [Moles/Vol] 133 mmol/L Low 135-145 [facility] Comment on above: Performed By: #### H GHCT #### [facility] [address] [place] [address] Comprehensive Metabolic Pane [facility] 09-26-2021 Albumin [Mass/Vol] 4.6 g/dL 3.5 - 5.0 g/dL [facility] ALP (Bld) [Catalytic activity/Vol] 120 U/L 38 - 126 U/L [facility] ALT [Catalytic activity/Vol] 156 U/L High 0 - 49 U/L [facility] Comment on above: The ALT test is perf ormed by an updated assay method. Please note that the reference intervals have been changed and are now sex specific. Anion gap [Moles/Vol] 15 mmol/L High 3 - 13 mmol/L [facility] AST [Catalytic activity/Vol] 159 U/L High 15 - 46 U/L [facility] Bilirubin [Mass/Vol] 0.6 mg/dL 0.2 - 1 .3 mg/dL [facility] Calcium [Mass/Vol] 9.4 mg/dL 8.4 - 10. 4 mg/dL [facility] Chloride [Moles/Vol] 94 mmol/L Low 98 - 10 7 mmol/L [facility] CO2 [Moles/Vol] 24 mmol/L 22 - 30 mmol/L [facility] Creatinine [Mass/Vol] 0.64 mg/dL 0.52 - 1.25 mg/dL [facility] EGFR IF NonAfrican Marshallese >90.0 >60 mL/min [facility] Comment on above: KDIGO guidelines pro vide the following GFR categories: Stage GFR(ml/min/1.73 m2) Terms G1 >=90 Normal or high G2 60-89 Mildly decreased* G3a 45-59 Mildly to moderately decreased G3b 30-44 Moderately to severely decreased G4 15-29 Severely decreased G5 <15 Kidney failure *Relative to young adult level. In the absence of evidence of kidney damage, neither GFR category G1 nor G2 fulfill the criteria for CKD. The CKD-EPI equation is validated in individuals 18 years of age and older. Currently the best equation for estimating glomerular filtration rate (GFR) from serum creatinine in children is the Bedside Francis equation. It is less accurate in patients with extremes of muscle mass, restriction of dietary protein, ingestion of creatine, extra-renal metabolism of creatinine, or treatment with medications that affect renal tubular creatinine secretion. Free PSA/Total PSA [Mass fraction] 7.5 g/dL 6.3 - 8.2 g/dL [facility] GFR/1.73 sq M.predicted among blacks MDRD (S/P/Bld) [Vol rate/Area] mL/min/{1.73_m2} >60 mL/min [facility] Glucose [Mass/Vol] 95 mg/dL 70 - 100 mg/dL [facility] Interpretation and review of laboratory results Abnormal [facility] Potassium [Moles/Vol] 4.0 mmol/L 3.5 - 5.1 mmol/L [facility] Sodium [Moles/Vol] 133 mmol/L Low 135 - 145 mmol/L [facility] Urea nitrogen (BldV) [Mass/Vol] 5 mg/dL Low 7 - 17 mg/dL [facility] Ethanolon 09-26-2021 Ethanol Lvl 0.346 g/dL Critically high 0.000 - 0.010 g/dL [facility] Comment on above: NOTE: This result is for medical treatment only. Analysis performed using non-forensic procedures. Interpretation and review of laboratory results Abnormal [facility] Ethanol Serum/Plasmaon 09-26 Ethanol-Serum/Plasma 0.346 g/dL Critically high 0.00 0-0.01 0 [facility] Comment on above: Result Comment: NOTE : This result is for medical treatment only. Analysis performed using non-forensic procedures. Performed By: #### H GHCT #### [facility] [address] [place] [address] Hemogram w/ Autodiffon 09-26 Abs Baso Cnt 0.1 10*3/uL Normal 0.0-0.2 [facility] Comment on above: Performed By: #### H GHCT #### [facility] [address] [place] [address] Abs Neutrophile Cnt 2.0 10*3/uL Normal 1.8-7.0 [facility] Comment on above: Performed By: #### H GHCT #### [facility] [address] [place] [address] Basophils/100 WBC (Bld) 1.7 % Normal 0.0-2.0 [facility] Comment on above: Performed By: #### H GHCT #### [facility] [address] [place] [address] Eosinophils (Bld) [#/Vol] 0.0 10*3/uL Normal 0.0-0.5 [facility] Comment on above: Performed By: #### H GHCT #### [facility] [address] [place] [address] Eosinophils/100 WBC (Bld) 0.7 % Low 1.0-6.0 [facility] Comment on above: Performed By: #### H GHCT #### [facility] [address] [place] [address] Erythrocyte distribution width (RBC) [Ratio] 13.3 % Normal 11.5-14.5 [facility] Comment on above: Performed By: #### H GHCT #### [facility] [address] [place] [address] Granulocytes/100 WBC (Bld) 46.7 % Normal 40.0-80.0 [facility] Comment on above: Performed By: #### H GHCT #### [facility] [address] [place] [address] Hematocrit (Bld) [Volume fraction] 45.9 % Normal 40.0-52.0 [facility] Comment on above: Performed By: #### H GHCT #### [facility] [address] [place] [address] Hemoglobin (Bld) [Mass/Vol] 16.8 g/dL Normal 13.0-18.0 [facility] Comment on above: Performed By: #### H GHCT #### [facility] [address] [place] [address] Lymphocytes (Bld) [#/Vol] 1.5 10*3/uL Normal 1.0-4.3 [facility] Comment on above: Performed By: #### H GHCT #### [facility] [address] [place] [address] Lymphocytes/100 WBC (Bld) 34.8 % Normal 20.0-40.0 [facility] Comment on above: Performed By: #### H GHCT #### [facility] [address] [place] [address] MCH (RBC) [Entitic mass] 33.9 pg Normal 26.0-34.0 [facility] Comment on above: Performed By: #### H GHCT #### [facility] [address] [place] [address] MCHC 36.6 % High 32.0-36.0 [facility] Comment on above: Performed By: #### H GHCT #### [facility] [address] [place] [address] MCV (RBC) [Entitic vol] 92.7 fL Normal 80.0-98.0 [facility] Comment on above: Performed By: #### H GHCT #### [facility] [address] [place] [address] Monocytes (Bld) [#/Vol] 0.7 10*3/uL Normal 0.0-0.8 [facility] Comment on above: Performed By: #### H GHCT #### [facility] [address] [place] [address] Monocytes/100 WBC (Bld) 16.1 % High 2.0-10.0 [facility] Comment on above: Performed By: #### H GHCT #### [facility] [address] [place] [address] Platelet mean volume (Bld) [Entitic vol] 8.8 fL Normal 7.4-12.4 [facility] Comment on above: Result Comment: MPV is a calculated measurement using platelet volume ratio. Performed By: #### H GHCT #### [facility] [address] [place] [address] Platelets (Bld) [#/Vol] 189 10*3/uL Normal 140-440 [facility] Comment on above: Performed By: #### H GHCT #### [facility] [address] [place] [address] RBC (Bld) [#/Vol] 4.95 10*6/uL Normal 4.40-5.90 [facility] Comment on above: Performed By: #### H GHCT #### [facility] [address] [place] [address] WBC (Bld) [#/Vol] 4.2 10*3/uL Normal 3.6-10.7 [facility] Comment on above: Performed By: #### H GHCT #### [facility] [address] [place] [address] Lactic Acidon 09-26-2021 Lactate [Moles/Vol] 3.2 mmol/L Critically high 0.7-2.0 [facility] Comment on above: Performed By: #### H GHCT #### [facility] [address] [place] [address] Interpretation and review of laboratory results Abnormal [facility] Lactate [Moles/Vol] 3.2 mmol/L Critically high 0.7 - 2.0 mmol/L [facility] Lipaseon 09-26-2021 Lipase [Catalytic activity/Vol] 135 U/L Normal 23-300 [facility] Comment on above: Performed By: #### H GHCT #### [facility] [address] [place] [address] Lipase [Catalytic activity/Vol] 135 U/L 23 - 300 U/L [facility] Magnesiumon 09-26-2021 Magnesium [Mass/Vol] 1.8 mg/dL Normal 1.6-2.3 [facility] Comment on above: Performed By: #### H GHCT #### [facility] [address] [place] [address] Magnesium [Mass/Vol] 1.8 mg/dL 1.6 - 2 .3 mg/dL [facility] No Panel Informationon 09-26 Test Performed by [facility], [facility] Jarred Hernández , [place], [place] [id number] [place] [address] LAB [facility] Prothrombin Timeon 2 INR 1.0 Normal 0.9-1.1 [facility] Comment on above: Result Comment: Abraham mmended Anticoagulant Therapy: SEE BELOW ----- INR of 2.0 - 3.0 : - Prophylaxis of Venous Thrombosis (high-risk surgery) - Treatment of Venous Thrombosis - Treatment of Pulmonary Embolism (Includes tissue heart valves, Acute Myocardial Infarction to prevent systemic embolism, Valvular Heart Disease, and Atrial Fibrillation) ----- INR of 2.5 - 3.5 : - Mechanical Prosthetic Valves (high risk) - If oral anticoagulant therapy is used to prevent Myocardial Infarction Performed By: #### H GHCT #### [facility] [address] [place] [address] PT Coag (PPP) [Time] 10.3 s Normal 9.0-12.0 [facility] Comment on above: Result Comment: . Performed By: #### H GHCT #### [facility] [address] [place] [address] Protime-INRon 09-26-2021 INR Coag (Bld) [Relative time] 1.0 {INR} [facility] Comment on above: Recommended Anticoag ulant Therapy: SEE BELOW ----- INR of 2.0 - 3.0 : - Prophylaxis of Venous Thrombosis (high-risk surgery) - Treatment of Venous Thrombosis - Treatment of Pulmonary Embolism (Includes tissue heart valves, Acute Myocardial Infarction to prevent systemic embolism, Valvular Heart Disease, and Atrial Fibrillation) ----- INR of 2.5 - 3.5 : - Mechanical Prosthetic Valves (high risk) - If oral anticoagulant therapy is used to prevent Myocardial Infarction PT Coag (PPP) [Time] 10.3 s 9.0 - 1 2.0 s [facility] Comment on above: . TS GELon 09-26-2021 TS GEL ABO Group: A Rh, Gel: POS Antibody Screen Gel: NEG Normal [facility] Comment on above: Performed By: #### C UA2 #### [facility] [address] [place] [address] TYPE AND SCREENon 09-26-2021 ABO Grouping A [facility] Rh Type Positive [facility] Troponin Ion 09-26-2021 Troponin I.cardiac [Mass/Vol] ng/mL Normal 0.000-0.03 4 [facility] Comment on above: Result Comment: . Performed By: #### H GHCT #### [facility] [address] [place] [address] Troponin x1on 09-26-2021 Troponin I.cardiac [Mass/Vol] ng/mL 0.000 - 0.034 ng/mL [facility] Comment on above: . XR CHEST PORTABLEon 09-27-19 [id number] Radiology ACCESSION EXAM DATE/TIME PROCEDURE ORDERING PROVIDER [id number] 09/26/2021 19:48 EDT CR Chest Portable [id number] -NESHEIM, DIPESH CPT code 69014 Reason For Exam (CR Chest Portable) epigastric pain Report CHEST SINGLE VIEW CLINICAL INFORMATION: Vomiting, epigastric pain, status post two packs a day A frontal view of the chest was obtained. No acute pulmonary disease is noted. The cardiovascular silhouette is within normal limits. IMPRESSION: No acute pulmonary disease. Report Dictated on --- Final --- Dictating Physician: MD GAY WILLIAM Signed Date and Time: 09/26/2021 7:58 pm Signed by: MD GAY WILLIAM Transcribed Date and Time: 09/26/2021 7:59 [facility] RAD Ubaldo Gay MD - 09/26/2021 Patient Name: MARIA DE JESUS HOGAN Diagnostic Radiology ACCESSION EXAM DATE/TIME PROCEDURE ORDERING PROVIDER [id number] 09/26/2021 19:48 EDT CR Chest Portable [id number] -NESHEIM, DIPESH CPT code 11960 Reason For Exam (CR Chest Portable) epigastric pain Report CHEST SINGLE VIEW CLINICAL INFORMATION: Vomiting, epigastric pain, status post two packs a day A frontal view of the chest was obtained. No acute pulmonary disease is noted. The cardiovascular silhouette is within normal limits. IMPRESSION: No acute pulmonary disease. Report Dictated on --- Final --- Dictating Physician: MD GAY WILLIAM Signed Date and Time: 09/26/2021 7:58 pm Signed by: MD GAY WILLIAM Transcribed Date and Time: 09/26/2021 7:59 [facility] Work Phone: Radiology Study observation (narrative) [facility] Work Phone: XR CHEST PORTABLEOrdered By: Ubaldo Gay on 09-26-2021 [facility] Work Phone: Surgical Pathologyon 022 Surgical Pathology Report SEE BELOW [facility] 1 [id number] [facility] PATHOLOGY AND LABORATORY MEDICINE [address] [place] [address] [place] [address] FINAL SURGICAL PATHOLOGY REPORT NAME: MARIA DE JESUS HOGAN : 1965 55 Y [facility] [id number] LOCATION: [address] [place] [address] PROCEDURE 06/08/2021 DATE: SURGEON: JAZMÍN WEI MD RECEIVED 06/08/2021 DATE: ATTENDING: ROB LOPEZ D.O. REPORT DATE: 06/09/2021 COPIES TO: DIAGNOSIS: ESOPHAGUS, DISTAL, BIOPSY - SQUAMOUS AND GLANDULAR MUCOSA WITH INTESTINAL METAPLASIA, COMPATIBLE WITH LOMBARDO'S ESOPHAGUS. -NEGATIVE FOR DYSPLASIA. Comment: The diagnosis of Lombardo's is made due to the presence of goblet cells (intestinal metaplasia), with the assumption that the biopsies were obtained from columnar mucosa in the distal esophagus, and the mucosal irregularity extends at least 1 cm above the top of gastric folds (2016 ACG guidelines). LISBETHK/JACK Signature> Pedro Luis VILLEDA, PhD CLINICAL INFORMATION: Screening SPECIMEN: ESOPHAGUS BIOPSY GROSS DESCRIPTION: Received in formalin labeled distal esophagus are two fragments of pink to red soft tissue, the smaller measures 0.2 x 0.2 x 0.1 cm and the larger measures 0.2 x 0.2 x 0.2 cm, both submitted in one cassette. BSC/0RW Disclaimer: The following statement applies to all immunohistochemistry, in situ hybridization, molecular studies, and immunofluorescence testing. The use of one or more reagents in the above tests is regulated as an analyte specific reagent (ASR). These tests were developed and their performance characteristics determined by the clinical laboratories of [facility]. They have not been cleared by the US Food and Drug Administration (FDA). The FDA has determined that such clearance or approval is not necessary. All the above immunostains were performed on paraffin embedded tissue. Appropriate positive and negative controls (where applicable) were run in parallel with the patient's specimen; these controls showed expected staining pattern, with acceptable intensity of staining. Immunohistochemical assays have not been validated on decalcified tissues. Results should be interpreted with caution given the raised possibility of false negativity on decalcified specimens. Professional Performing Location: [address] [address]. DEPARTMENT OF PATHOLOGY AND LABORATORY MEDICINE [place], [place] [address] [facility] Basic Metabolic Panelon 03-1 0 Calcium [Mass/Vol] 8.1 mg/dL Low 8.4-10.4 [facility] Comment on above: Performed By: #### H AGATHA ADEN3 #### [address] [address] Glucose [Mass/Vol] 151 mg/dL High 70-100 [facility] Comment on above: Performed By: #### H AGATHA ADEN3 #### [address] [place] Urea nitrogen [Mass/Vol] 6 mg/dL Low 7-17 [facility] Comment on above: Performed By: #### H AGATHA ADEN3 #### [facility] [address] [place], [place] Anion gap [Moles/Vol] 5 mmol/L Normal 3-13 [facility] Comment on above: Performed By: #### H KEIKO BMP3 #### [facility] [address] [place], [place] CO2 [Moles/Vol] 30 mmol/L Normal 22-30 [facility] Comment on above: Performed By: #### H AGATHA ADEN3 #### [place] [address] [address] [place], [place] Creatinine [Mass/Vol] 0.62 mg/dL Normal 0.52-1.25 [facility] Comment on above: Performed By: #### H AGATHA ADEN3 #### [place] [address] [address] [place], [place] eGFR OTHER > 90.0 Normal >60 [facility] Comment on above: Result Comment: KDIG O guidelines provide the following GFR categories: Stage GFR(ml/min/1.73 m2) Terms G1 >=90 Normal or high G2 60-89 Mildly decreased* G3a 45-59 Mildly to moderately decreased G3b 30-44 Moderately to severely decreased G4 15-29 Severely decreased G5 <15 Kidney failure *Relative to young adult level. In the absence of evidence of kidney damage, neither GFR category G1 nor G2 fulfill the criteria for CKD. The CKD-EPI equation is validated in individuals 18 years of age and older. Currently the best equation for estimating glomerular filtration rate (GFR) from serum creatinine in children is the Bedside Francis equation. It is less accurate in patients with extremes of muscle mass, restriction of dietary protein, ingestion of creatine, extra-renal metabolism of creatinine, or treatment with medications that affect renal tubular creatinine secretion. Performed By: #### H KEIKO BMP3 #### [facility] [address] [place], [place] GFR/1.73 sq M.predicted among blacks MDRD (S/P/Bld) [Vol rate/Area] mL/min/{1.73_m2} Normal >60 [facility] Comment on above: Performed By: #### H AGATHA ADEN3 #### [facility] [address] [place], [place] Potassium [Moles/Vol] 4.0 mmol/L Normal 3.5-5.1 [facility] Comment on above: Performed By: #### H AGATHA ADEN3 #### [facility] [address] [place], [place] Chloride [Moles/Vol] 95 mmol/L Low 98-107 [facility] Comment on above: Performed By: #### H AGATHA ADEN3 #### [facility] [address] [place], [place] Sodium [Moles/Vol] 130 mmol/L Low 135-145 [facility] Comment on above: Performed By: #### H AGATHA ADEN3 #### [facility] [address] [place], [place] Anion gap [Moles/Vol] 5 mmol/L 3 - 13 mmol/L [facility] Calcium [Mass/Vol] 8.1 mg/dL Low 8.4 - 10. 4 mg/dL [facility] Chloride [Moles/Vol] 95 mmol/L Low 98 - 10 7 mmol/L [facility] CO2 [Moles/Vol] 30 mmol/L 22 - 30 mmol/L [facility] Creatinine [Mass/Vol] 0.62 mg/dL 0.52 - 1.25 mg/dL [facility] EGFR IF NonAfrican Marshallese >90.0 >60 mL/min [facility] Comment on above: KDIGO guidelines pro vide the following GFR categories: Stage GFR(ml/min/1.73 m2) Terms G1 >=90 Normal or high G2 60-89 Mildly decreased* G3a 45-59 Mildly to moderately decreased G3b 30-44 Moderately to severely decreased G4 15-29 Severely decreased G5 <15 Kidney failure *Relative to young adult level. In the absence of evidence of kidney damage, neither GFR category G1 nor G2 fulfill the criteria for CKD. The CKD-EPI equation is validated in individuals 18 years of age and older. Currently the best equation for estimating glomerular filtration rate (GFR) from serum creatinine in children is the Bedside Francis equation. It is less accurate in patients with extremes of muscle mass, restriction of dietary protein, ingestion of creatine, extra-renal metabolism of creatinine, or treatment with medications that affect renal tubular creatinine secretion. GFR/1.73 sq M.predicted among blacks MDRD (S/P/Bld) [Vol rate/Area] mL/min/{1.73_m2} >60 mL/min [facility] Glucose [Mass/Vol] 151 mg/dL High 70 - 100 mg/dL [facility] Interpretation and review of laboratory results Abnormal [facility] Potassium [Moles/Vol] 4.0 mmol/L 3.5 - 5.1 mmol/L [facility] Sodium [Moles/Vol] 130 mmol/L Low 135 - 145 mmol/L [facility] Urea nitrogen (BldV) [Mass/Vol] 6 mg/dL Low 7 - 17 mg/dL [facility] Test Performed by [id number] [place] [address] LAB [facility] CBC with Auto Differentialon 06-08-2021 Absolute Baso # 0.1 10*3/uL 0.0 - 0.2 10*3/uL [facility] Absolute Neut # 2.4 10*3/uL 1.8 - 7.0 10*3/uL [facility] Basophils/100 WBC (Bld) 1.5 % 0.0 - 2.0 % [facility] Eosinophils (Bld) [#/Vol] 0.1 10*3/uL 0.0 - 0.5 10*3/uL [facility] Eosinophils/100 WBC (Bld) 3.0 % 1.0 - 6.0 % [facility] Granulocytes/100 WBC (Bld) 60.8 % 40.0 - 80.0 % [facility] Hematocrit (Bld) [Volume fraction] 40.0 % 40.0 - 52.0 % [facility] Hemoglobin.gastrointest inal spec 1 Ql (Stl) 13.3 g/dL 13.0 - 18.0 g/dL [facility] Interpretation and review of laboratory results Abnormal [facility] Lymphocytes (Bld) [#/Vol] 1.0 10*3/uL 1.0 - 4.3 10*3/uL [facility] Lymphocytes/100 WBC (Bld) 24.6 % 20.0 - 40.0 % [facility] MCH (RBC) [Entitic mass] 32.9 pg 26.0 - 34.0 pg [facility] MCHC (RBC) [Mass/Vol] 33.3 % 32.0 - 36.0 % [facility] MCV (RBC) [Entitic vol] 98.7 fL High 80.0 - 98.0 fL [facility] Monocytes (Bld) [#/Vol] 0.4 10*3/uL 0.0 - 0.8 10*3/uL [facility] Monocytes/100 WBC (Bld) 10.1 % High 2.0 - 10.0 % [facility] Platelet distribution width (Bld) [Ratio] 13.8 % 11.5 - 14.5 % [facility] Platelet mean volume (Bld) [Entitic vol] 7.8 fL 7.4 - 10.4 fL [facility] Platelets (Bld) [#/Vol] 163 10*3/uL 140 - 440 10*3/uL [facility] RBC (Bld) [#/Vol] 4.05 10*6/uL Low 4.40 - 5.90 10*6/uL [facility] WBC (Bld) [#/Vol] 4.0 10*3/uL 3.6 - 10.7 10*3/uL [facility] Test Performed by [facility], [address] [place] [id number] [place] [address] LAB [facility] HM ENDOSCOPY REPORTon 2021 Ordered by an unspec ified provider. [facility] Hemogram w/ Autodiffon 06-08 Abs Baso Cnt 0.1 10*3/uL Normal 0.0-0.2 [facility] Comment on above: Performed By: #### H AGATHA ADEN3 #### [facility] [address] [place] [address] Abs Neutrophile Cnt 2.4 10*3/uL Normal 1.8-7.0 [facility] Comment on above: Performed By: #### H AGATHA ADEN3 #### [facility] [address] [place] [address] Basophils/100 WBC (Bld) 1.5 % Normal 0.0-2.0 [facility] Comment on above: Performed By: #### H EMDF, BMP3 #### [facility] [address] [place] [address] Eosinophils (Bld) [#/Vol] 0.1 10*3/uL Normal 0.0-0.5 [facility] Comment on above: Performed By: #### H EMDF, BMP3 #### [facility] [address] [place] [address] Eosinophils/100 WBC (Bld) 3.0 % Normal 1.0-6.0 [facility] Comment on above: Performed By: #### H EMDF, BMP3 #### [facility] [address] [place] [address] Erythrocyte distribution width (RBC) [Ratio] 13.8 % Normal 11.5-14.5 [facility] Comment on above: Performed By: #### H EMDF, BMP3 #### [address] [place] [address] Granulocytes/100 WBC (Bld) 60.8 % Normal 40.0-80.0 [facility] Comment on above: Performed By: #### H EMDF, BMP3 #### [facility] [address] [place] [address] Hematocrit (Bld) [Volume fraction] 40.0 % Normal 40.0-52.0 [facility] Comment on above: Performed By: #### H EMDF, BMP3 #### [facility] [address] [place] [address] Hemoglobin (Bld) [Mass/Vol] 13.3 g/dL Normal 13.0-18.0 [facility] Comment on above: Performed By: #### H EMDF, BMP3 #### [facility] [address] [place] [address] Lymphocytes (Bld) [#/Vol] 1.0 10*3/uL Normal 1.0-4.3 [facility] Comment on above: Performed By: #### H EMDF, BMP3 #### [facility] [address] [place] [address] Lymphocytes/100 WBC (Bld) 24.6 % Normal 20.0-40.0 [facility] Comment on above: Performed By: #### H EMDF, BMP3 #### [facility] [address] [place], [place] MCH (RBC) [Entitic mass] 32.9 pg Normal 26.0-34.0 [facility] Comment on above: Performed By: #### H EMDF, BMP3 #### [facility] [address] [place], [place] MCHC 33.3 % Normal 32.0-36.0 [facility] Comment on above: Performed By: #### H EMDF, BMP3 #### [facility] [address] [place], [place] MCV (RBC) [Entitic vol] 98.7 fL High 80.0-98.0 [facility] Comment on above: Performed By: #### H EMDF, BMP3 #### [address] [place], [place] Monocytes (Bld) [#/Vol] 0.4 10*3/uL Normal 0.0-0.8 [facility] Comment on above: Performed By: #### H EMDF, BMP3 #### [address] [place], [place] Monocytes/100 WBC (Bld) 10.1 % High 2.0-10.0 [facility] Comment on above: Performed By: #### H EMDF, BMP3 #### [facility] [address] [place], [place] Platelet mean volume (Bld) [Entitic vol] 7.8 fL Normal 7.4-10.4 [facility] Comment on above: Performed By: #### H EMDF, BMP3 #### [address] [place], [place] Platelets (Bld) [#/Vol] 163 10*3/uL Normal 140-440 [facility] Comment on above: Performed By: #### H EMDF, BMP3 #### [address] [place], [place] RBC (Bld) [#/Vol] 4.05 10*6/uL Low 4.40-5.90 [facility] Comment on above: Performed By: #### H AGATHA ADEN3 #### [address] [address] WBC (Bld) [#/Vol] 4.0 10*3/uL Normal 3.6-10.7 [facility] Comment on above: Performed By: #### H AGATHA ADEN3 #### [address] [address] Surgical Pathologyon 022 Surgical Pathology [id number] [facility] DEPARTMENT OF [facility] PATHOLOGY AND LABORATORY MEDICINE [address] [place] [address] FINAL SURGICAL PATHOLOGY REPORT NAME: MARIA DE JESUS HOGAN : 1965 55 [address] ORR NO.: [id number] LOCATION: [address] [place] [address] 01 PROCEDURE 06/08/2021 DATE: SURGEON: JAZMÍN WEI MD RECEIVED 06/08/2021 DATE: ATTENDING: ROB LOPEZ D.O. REPORT DATE: 06/09/2021 COPIES TO: DIAGNOSIS: ESOPHAGUS, DISTAL, BIOPSY - SQUAMOUS AND GLANDULAR MUCOSA WITH INTESTINAL METAPLASIA, COMPATIBLE WITH LOMBARDO'S ESOPHAGUS. -NEGATIVE FOR DYSPLASIA. Comment: The diagnosis of Lombardo's is made due to the presence of goblet cells (intestinal metaplasia), with the assumption that the biopsies were obtained from columnar mucosa in the distal esophagus, and the mucosal irregularity extends at least 1 cm above the top of gastric folds (2016 ACG guidelines). ARK/ARK Signature> Pedro Luis VILLEDA, PhD CLINICAL INFORMATION: Screening SPECIMEN: ESOPHAGUS BIOPSY GROSS DESCRIPTION: Received in formalin labeled distal esophagus are two fragments of pink to red soft tissue, the smaller measures 0.2 x 0.2 x 0.1 cm and the larger measures 0.2 x 0.2 x 0.2 cm, both submitted in one cassette. BSC/0RW Disclaimer: The following statement applies to all immunohistochemistry, in situ hybridization, molecular studies, and immunofluorescence testing. The use of one or more reagents in the above tests is regulated as an analyte specific reagent (ASR). These tests were developed and their performance characteristics determined by the clinical laboratories of [facility]. They have not been cleared by the US Food and Drug Administration (FDA). The FDA has determined that such clearance or approval is not necessary. All the above immunostains were performed on paraffin embedded tissue. Appropriate positive and negative controls (where applicable) were run in parallel with the patient's specimen; these controls showed expected staining pattern, with acceptable intensity of staining. Immunohistochemical assays have not been validated on decalcified tissues. Results should be interpreted with caution given the raised possibility of false negativity on decalcified specimens. Professional Performing Location: [address] [address]. DEPARTMENT OF PATHOLOGY AND LABORATORY MEDICINE [place], [place] [address] [email or web address] Normal [facility] CBC with Auto Differentialon 06-07-2021 Absolute Baso # 0.1 10*3/uL 0.0 - 0.2 10*3/uL [facility] Absolute Neut # 2.1 10*3/uL 1.8 - 7.0 10*3/uL [facility] Basophils/100 WBC (Bld) 1.3 % 0.0 - 2.0 % [facility] Eosinophils (Bld) [#/Vol] 0.1 10*3/uL 0.0 - 0.5 10*3/uL [facility] Eosinophils/100 WBC (Bld) 1.9 % 1.0 - 6.0 % [facility] Granulocytes/100 WBC (Bld) 53.3 % 40.0 - 80.0 % [facility] Hematocrit (Bld) [Volume fraction] 45.3 % 40.0 - 52.0 % [facility] Hemoglobin.gastrointest inal spec 1 Ql (Stl) 15.3 g/dL 13.0 - 18.0 g/dL [facility] Interpretation and review of laboratory results Abnormal [facility] Lymphocytes (Bld) [#/Vol] 1.2 10*3/uL 1.0 - 4.3 10*3/uL [facility] Lymphocytes/100 WBC (Bld) 30.2 % 20.0 - 40.0 % [facility] MCH (RBC) [Entitic mass] 33.1 pg 26.0 - 34.0 pg [facility] MCHC (RBC) [Mass/Vol] 33.7 % 32.0 - 36.0 % [facility] MCV (RBC) [Entitic vol] 98.1 fL High 80.0 - 98.0 fL [facility] Monocytes (Bld) [#/Vol] 0.5 10*3/uL 0.0 - 0.8 10*3/uL [facility] Monocytes/100 WBC (Bld) 13.3 % High 2.0 - 10.0 % [facility] Platelet distribution width (Bld) [Ratio] 14.1 % 11.5 - 14.5 % [facility] Platelet mean volume (Bld) [Entitic vol] 6.9 fL Low 7.4 - 10.4 fL [facility] Platelets (Bld) [#/Vol] 195 10*3/uL 140 - 440 10*3/uL [facility] RBC (Bld) [#/Vol] 4.62 10*6/uL 4.40 - 5.90 10*6/uL [facility] WBC (Bld) [#/Vol] 3.9 10*3/uL 3.6 - 10.7 10*3/uL [facility] Test Performed by [facility], [address] [place] [address] [facility] Comp Panel with Mg Reflexon 06-07-2021 ALP [Catalytic activity/Vol] 92 U/L Normal 38-126 [facility] Comment on above: Performed By: #### H EMDF MG3, CMP3M #### [address] ALT [Catalytic activity/Vol] 144 U/L High 0-49 [facility] Comment on above: Result Comment: The ALT test is performed by an updated assay method. Please note that the reference intervals have been changed and are now sex specific. Performed By: #### H EMDF MG3, CMP3M #### [address] Anion gap [Moles/Vol] 10 mmol/L Normal 3-13 [facility] Comment on above: Performed By: #### H EMDF MG3, CMP3M #### [address] AST [Catalytic activity/Vol] 104 U/L High 15-46 [facility] Comment on above: Performed By: #### H EMDF, MG3, CMP3M #### [address] [address] [place], [place] Bilirubin [Mass/Vol] 0.6 mg/dL Normal 0.2-1.3 [facility] Comment on above: Performed By: #### H EMDF, MG3, CMP3M #### [address] CO2 [Moles/Vol] 26 mmol/L Normal 22-30 [facility] Comment on above: Performed By: #### H EMDF, MG3, CMP3M #### [address] [place], [place] Glucose [Mass/Vol] 133 mg/dL High 70-100 [facility] Comment on above: Performed By: #### H MARK ADEN CMP3M #### [facility] [address] [place], [place] Protein [Mass/Vol] 7.0 g/dL Normal 6.3-8.2 [facility] Comment on above: Performed By: #### H KEIKO MG3, CMP3M #### [address] [address] [place], [place] Urea nitrogen [Mass/Vol] 6 mg/dL Low 7-17 [facility] Comment on above: Performed By: #### H MG KEIKO3 CMP3M #### [address] Creatinine [Mass/Vol] 0.72 mg/dL Normal 0.52-1.25 [facility] Comment on above: Performed By: #### H MG KEIKO3 CMP3M #### [address] [address] [place], [place] eGFR OTHER > 90.0 Normal >60 [facility] Comment on above: Result Comment: KDIG O guidelines provide the following GFR categories: Stage GFR(ml/min/1.73 m2) Terms G1 >=90 Normal or high G2 60-89 Mildly decreased* G3a 45-59 Mildly to moderately decreased G3b 30-44 Moderately to severely decreased G4 15-29 Severely decreased G5 <15 Kidney failure *Relative to young adult level. In the absence of evidence of kidney damage, neither GFR category G1 nor G2 fulfill the criteria for CKD. The CKD-EPI equation is validated in individuals 18 years of age and older. Currently the best equation for estimating glomerular filtration rate (GFR) from serum creatinine in children is the Bedside Francis equation. It is less accurate in patients with extremes of muscle mass, restriction of dietary protein, ingestion of creatine, extra-renal metabolism of creatinine, or treatment with medications that affect renal tubular creatinine secretion. Performed By: #### H KEIKO MG3, CMP3M #### [address] [address] [place], [place] GFR/1.73 sq M.predicted among blacks MDRD (S/P/Bld) [Vol rate/Area] mL/min/{1.73_m2} Normal >60 [facility] Comment on above: Performed By: #### H EMDF, MG3, CMP3M #### [facility] [address] [place], [place] Albumin [Mass/Vol] 4.2 g/dL Normal 3.5-5.0 [facility] Comment on above: Performed By: #### H EMDF, MG3, CMP3M #### [facility] [address] [place], [place] Chloride [Moles/Vol] 94 mmol/L Low 98-107 [facility] Comment on above: Performed By: #### H EMDF, MG3, CMP3M #### [address] [place], [place] Potassium [Moles/Vol] 3.5 mmol/L Normal 3.5-5.1 [facility] Comment on above: Performed By: #### H EMDF, MG3, CMP3M #### [facility] [address] [place], [place] Sodium [Moles/Vol] 130 mmol/L Low 135-145 [facility] Comment on above: Performed By: #### H EMDF, MG3, CMP3M #### [address] [place], [place] Calcium [Mass/Vol] 8.5 mg/dL Normal 8.4-10.4 [facility] Comment on above: Performed By: #### H EMDF, MG3, CMP3M #### [facility] [address] [place], [place] Comprehensive Metabolic Pane l w/ Reflex to MGon 06-07-2021 Albumin [Mass/Vol] 4.2 g/dL 3.5 - 5.0 g/dL [facility] ALP (Bld) [Catalytic activity/Vol] 92 U/L 38 - 126 U/L [facility] ALT [Catalytic activity/Vol] 144 U/L High 0 - 49 U/L [facility] Comment on above: The ALT test is perf ormed by an updated assay method. Please note that the reference intervals have been changed and are now sex specific. Anion gap [Moles/Vol] 10 mmol/L 3 - 13 mmol/L [facility] AST [Catalytic activity/Vol] 104 U/L High 15 - 46 U/L [facility] Bilirubin [Mass/Vol] 0.6 mg/dL 0.2 - 1 .3 mg/dL [facility] Chloride [Moles/Vol] 94 mmol/L Low 98 - 10 7 mmol/L [facility] CO2 [Moles/Vol] 26 mmol/L 22 - 30 mmol/L [facility] Creatinine [Mass/Vol] 0.72 mg/dL 0.52 - 1.25 mg/dL [facility] EGFR IF NonAfrican Marshallese >90.0 >60 mL/min [facility] Comment on above: KDIGO guidelines pro vide the following GFR categories: Stage GFR(ml/min/1.73 m2) Terms G1 >=90 Normal or high G2 60-89 Mildly decreased* G3a 45-59 Mildly to moderately decreased G3b 30-44 Moderately to severely decreased G4 15-29 Severely decreased G5 <15 Kidney failure *Relative to young adult level. In the absence of evidence of kidney damage, neither GFR category G1 nor G2 fulfill the criteria for CKD. The CKD-EPI equation is validated in individuals 18 years of age and older. Currently the best equation for estimating glomerular filtration rate (GFR) from serum creatinine in children is the Bedside Francis equation. It is less accurate in patients with extremes of muscle mass, restriction of dietary protein, ingestion of creatine, extra-renal metabolism of creatinine, or treatment with medications that affect renal tubular creatinine secretion. Free PSA/Total PSA [Mass fraction] 7.0 g/dL 6.3 - 8.2 g/dL [facility] GFR/1.73 sq M.predicted among blacks MDRD (S/P/Bld) [Vol rate/Area] mL/min/{1.73_m2} >60 mL/min [facility] Glucose [Mass/Vol] 133 mg/dL High 70 - 100 mg/dL [facility] Interpretation and review of laboratory results Abnormal [facility] Potassium [Moles/Vol] 3.5 mmol/L 3.5 - 5.1 mmol/L [facility] Sodium [Moles/Vol] 130 mmol/L Low 135 - 145 mmol/L [facility] Urea nitrogen (BldV) [Mass/Vol] 6 mg/dL Low 7 - 17 mg/dL [facility] Test Performed by [facility], [address] [place] [id number] [place] [address] LAB [facility] Hemoglobin AND Hematocriton 06-07-2021 Hematocrit (Bld) [Volume fraction] 42.5 % Normal 40.0-52.0 [facility] Comment on above: Performed By: #### H GHCT #### [address] [address] [place], [place] Hemoglobin (Bld) [Mass/Vol] 14.4 g/dL Normal 13.0-18.0 [facility] Comment on above: Performed By: #### H GHCT #### [address] Hemoglobin and Hematocriton 06-07-2021 Hematocrit (Bld) [Volume fraction] 42.5 % 40.0 - 52.0 % [facility] Hemoglobin.gastrointest inal spec 1 Ql (Stl) 14.4 g/dL 13.0 - 18.0 g/dL [facility] Test Performed by [facility], [address] [place] [id number] [place] [address] LAB [facility] Hemogram w/ Autodiffon 06-07 Abs Baso Cnt 0.1 10*3/uL Normal 0.0-0.2 [facility] Comment on above: Performed By: #### H EMDF, MG3, CMP3M #### [address] Abs Neutrophile Cnt 2.1 10*3/uL Normal 1.8-7.0 [facility] Comment on above: Performed By: #### H EMDF, MG3, CMP3M #### [address] Basophils/100 WBC (Bld) 1.3 % Normal 0.0-2.0 [facility] Comment on above: Performed By: #### H EMDF, MG3, CMP3M #### [address] [address] [place], [place] Eosinophils (Bld) [#/Vol] 0.1 10*3/uL Normal 0.0-0.5 [facility] Comment on above: Performed By: #### H EMDF, MG3, CMP3M #### [address] [address] [place], [place] Eosinophils/100 WBC (Bld) 1.9 % Normal 1.0-6.0 [facility] Comment on above: Performed By: #### H EMDF, MG3, CMP3M #### [address] [address] [place], [place] Erythrocyte distribution width (RBC) [Ratio] 14.1 % Normal 11.5-14.5 [facility] Comment on above: Performed By: #### H EMDF, MG3, CMP3M #### [address] [address] [place], [place] Granulocytes/100 WBC (Bld) 53.3 % Normal 40.0-80.0 [facility] Comment on above: Performed By: #### H EMDF, MG3, CMP3M #### [address] [address] [place], [place] Hematocrit (Bld) [Volume fraction] 45.3 % Normal 40.0-52.0 [facility] Comment on above: Performed By: #### H EMDF, MG3, CMP3M #### [address] [address] [place], [place] Hemoglobin (Bld) [Mass/Vol] 15.3 g/dL Normal 13.0-18.0 [facility] Comment on above: Performed By: #### H EMDF, MG3, CMP3M #### [address] Lymphocytes (Bld) [#/Vol] 1.2 10*3/uL Normal 1.0-4.3 [facility] Comment on above: Performed By: #### H EMDF, MG3, CMP3M #### [address] Lymphocytes/100 WBC (Bld) 30.2 % Normal 20.0-40.0 [facility] Comment on above: Performed By: #### H EMDBasim MG3, CMP3M #### [address] [address] [place], [place] MCH (RBC) [Entitic mass] 33.1 pg Normal 26.0-34.0 [facility] Comment on above: Performed By: #### H EMDBasim MG3, CMP3M #### [address] [address] [place], [place] MCHC 33.7 % Normal 32.0-36.0 [facility] Comment on above: Performed By: #### H EMDBasim MG3, CMP3M #### [address] MCV (RBC) [Entitic vol] 98.1 fL High 80.0-98.0 [facility] Comment on above: Performed By: #### H EMDF MG3, CMP3M #### [address] Monocytes (Bld) [#/Vol] 0.5 10*3/uL Normal 0.0-0.8 [facility] Comment on above: Performed By: #### H EMDBasim, MG3, CMP3M #### [address] Monocytes/100 WBC (Bld) 13.3 % High 2.0-10.0 [facility] Comment on above: Performed By: #### H EMDF, MG3, CMP3M #### [address] [place] [address] [place], [place] Platelet mean volume (Bld) [Entitic vol] 6.9 fL Low 7.4-10.4 [facility] Comment on above: Performed By: #### H EMDF, MG3, CMP3M #### [address] Platelets (Bld) [#/Vol] 195 10*3/uL Normal 140-440 [facility] Comment on above: Performed By: #### H EMDF MG3, CMP3M #### [address] [address] [place], [place] RBC (Bld) [#/Vol] 4.62 10*6/uL Normal 4.40-5.90 [facility] Comment on above: Performed By: #### H EMDF, MG3, CMP3M #### [address] [place] [address] [place], [place] WBC (Bld) [#/Vol] 3.9 10*3/uL Normal 3.6-10.7 [facility] Comment on above: Performed By: #### H EMDF, MG3, CMP3M #### [address] Lactic Acidon 06-07-2021 Lactate [Moles/Vol] 0.8 mmol/L Normal 0.7-2.0 [facility] Comment on above: Performed By: #### L ACT3 #### [address] Test Performed by [id number] [place] [address] LAB Lactate [Moles/Vol] 2.6 mmol/L Critically high 0.7-2.0 [facility] Comment on above: Performed By: #### L ACT3 #### [address] Interpretation and review of laboratory results Abnormal [facility] Lactate [Moles/Vol] 2.6 mmol/L Critically high 0.7 - 2.0 mmol/L [facility] Test Performed by [address] [id number] [facility] Lactic AcidOrdered By: Valeriano Saavedra on 06-07-2021 Lactate [Moles/Vol] 0.8 mmol/L 0.7 - 2. 0 mmol/L [facility] Magnesiumon 06-07-2021 Magnesium [Mass/Vol] 1.9 mg/dL Normal 1.6-2.3 [facility] Comment on above: Performed By: #### H EMDF, MG3, CMP3M ####[facility] [id number] [place] [address] Magnesium [Mass/Vol] 1.9 mg/dL 1.6 - 2 .3 mg/dL [facility] Test Performed by [facility], [address] [place] [address] [facility] Add On Lab Teston 06-06-2021 Add On Accepted [facility] Comment on above: Specimen available & acceptable for analysis. Test Performed by [facility], [address] , [address] LAB [facility] Add on test from HISon 06-06 Add on test from HIS Accepted Normal [facility] Comment on above: Result Comment: Spec imen available & acceptable for analysis. Performed By: #### A DDON #### [facility] [address] [place] [address] CT Abdomen and Pelvis W cont rast Main 06-06-2021 Patient Name: MARIA DE JESUS SÁNCHEZ Computed Tomography ACCESSION EXAM DATE/TIME PROCEDURE ORDERING PROVIDER [id number] 06/06/2021 17:[address] Abdomen/Pelvis w/ IV 201589 CATALINO ROTH Contrast (IV Onl CPT code 76721 [id number] Reason For Exam (CT Abdomen/Pelvis w/ IV Contrast (IV Onl) abd pain, ugib Report EXAMINATION: CT of the abdomen and pelvis with IV contrast. EXAM DATE & TIME: 06/06/2021 5:53 PM EST INDICATION: abd pain, ugib ADDITIONAL INFORMATION: 55-year-old male with acute abdominal pain and upper GI bleeding presents for evaluation COMPARISON: None LIMITATIONS: Evaluation of the hollow viscera is limited due to the lack of oral contrast. TECHNIQUE: Contiguous multiplanar 3 mm images were obtained from the levels of the lung bases through the pelvis during dynamic infusion of 75 ml of intravenous Isovue 370. Images were reformatted in coronal and sagittal projections using the raw CT data and were interpreted in conjunction with the axial images to render the findings listed below. Before infusion of intravenous contrast, radiology personnel investigated the possibility of an allergic history and any history of reaction to iodinated contrast material. FINDINGS: Included images of the lower thorax: There is bandlike scarring/atelectasis in the right middle lobe and near the right lung base. No focal consolidation. Hepatobiliary: There is diffuse fatty metamorphosis of the liver. No enhancing hepatic lesion is seen. No intrahepatic biliary ductal dilation. Gallbladder appears normal. Spleen: Unremarkable. Pancreas: Unremarkable. Adrenal glands: Unremarkable. Kidneys, ureters and bladder: No hydronephrosis or nephrolithiasis. The urinary bladder is unremarkable in Computed Tomography Report appearance. Abdominal and pelvic vasculature: Atherosclerotic vascular calcifications are present. Gastrointestinal: Intramural gas is present in the cecal and ascending colonic wall gas (series 2, image [id number]). Colonic diverticulosis is present without evidence of diverticulitis. There is no evidence of obstruction. No pericecal inflammation to suggest acute appendicitis. Peritoneum, retroperitoneum and mesentery: No free fluid or free air. Lymph nodes: No abdominal or pelvic lymphadenopathy is evident. Solid pelvic viscera: Unremarkable. Visualized musculoskeletal structures: Multilevel spondylosis is present. There are degenerative changes of the sacroiliac joints bilaterally. No acute fracture or traumatic dislocation identified. IMPRESSION: 1. Intramural gas near the cecum and ascending colon, compatible with pneumatosis coli. 2. Hepatic steatosis. 3. Additional chronic findings as above. CRITICAL TEST RESULT COMMUNICATION: The findings were discussed with Dr. Diallo on 06/06/2021 at 6:38 PM. Report Dictated on --- Final --- Dictating Physician: MD DE LA O CHRISTOPHER Signed Date and Time: 06/06/2021 6:39 pm Signed by: MD DE LA O CHRISTOPHER Transcribed Date and Time: 06/06/2021 6:40 [facility] Zuly De La O MD - 06/06/2021 Patient Name: MARIA DE JESUS HOGAN Computed Tomography ACCESSION EXAM DATE/TIME PROCEDURE ORDERING PROVIDER [id number] 06/06/2021 17:[address] Abdomen/Pelvis w/ IV [id number] -CATALINO DIALLO Contrast (IV Onl CPT code 57052 Q9967 Reason For Exam (CT Abdomen/Pelvis w/ IV Contrast (IV Onl) abd pain, ugib Report EXAMINATION: CT of the abdomen and pelvis with IV contrast. EXAM DATE & TIME: 06/06/2021 5:53 PM EST INDICATION: abd pain, ugib ADDITIONAL INFORMATION: 55-year-old male with acute abdominal pain and upper GI bleeding presents for evaluation COMPARISON: None LIMITATIONS: Evaluation of the hollow viscera is limited due to the lack of oral contrast. TECHNIQUE: Contiguous multiplanar 3 mm images were obtained from the levels of the lung bases through the pelvis during dynamic infusion of 75 ml of intravenous Isovue 370. Images were reformatted in coronal and sagittal projections using the raw CT data and were interpreted in conjunction with the axial images to render the findings listed below. Before infusion of intravenous contrast, radiology personnel investigated the possibility of an allergic history and any history of reaction to iodinated contrast material. FINDINGS: Included images of the lower thorax: There is bandlike scarring/atelectasis in the right middle lobe and near the right lung base. No focal consolidation. Hepatobiliary: There is diffuse fatty metamorphosis of the liver. No enhancing hepatic lesion is seen. No intrahepatic biliary ductal dilation. Gallbladder appears normal. Spleen: Unremarkable. Pancreas: Unremarkable. Adrenal glands: Unremarkable. Kidneys, ureters and bladder: No hydronephrosis or nephrolithiasis. The urinary bladder is unremarkable in Computed Tomography Report appearance. Abdominal and pelvic vasculature: Atherosclerotic vascular calcifications are present. Gastrointestinal: Intramural gas is present in the cecal and ascending colonic wall gas (series 2, image [id number]). Colonic diverticulosis is present without evidence of diverticulitis. There is no evidence of obstruction. No pericecal inflammation to suggest acute appendicitis. Peritoneum, retroperitoneum and mesentery: No free fluid or free air. Lymph nodes: No abdominal or pelvic lymphadenopathy is evident. Solid pelvic viscera: Unremarkable. Visualized musculoskeletal structures: Multilevel spondylosis is present. There are degenerative changes of the sacroiliac joints bilaterally. No acute fracture or traumatic dislocation identified. IMPRESSION: 1. Intramural gas near the cecum and ascending colon, compatible with pneumatosis coli. 2. Hepatic steatosis. 3. Additional chronic findings as above. CRITICAL TEST RESULT COMMUNICATION: The findings were discussed with Dr. Diallo on 06/06/2021 at 6:38 PM. Report Dictated on --- Final --- Dictating Physician: MD DE LA O CHRISTOPHER Signed Date and Time: 06/06/2021 6:39 pm Signed by: MD DE LA O CHRISTOPHER Transcribed Date and Time: 06/06/2021 6:40 [facility] Work Phone: Radiology Study observation (narrative) [facility] Work Phone: CT Abdomen and Pelvis W cont rast IVOrdered By: Zuly De La O on 06-06-2021 [facility] Work Phone: CT Abdomen/Pelvis w/ Contras ton 06-06-2021 CT Abdomen/Pelvis w/ Contrast Patient Name: MARIA DE JESUS HOGAN Computed Tomography ACCESSION EXAM DATE/TIME PROCEDURE ORDERING PROVIDER [id number] 06/06/2021 17:[address] Abdomen/Pelvis w/ IV [id number] CATALINO ROTH Contrast (IV Onl CPT code 35026 Q9967 Reason For Exam (CT Abdomen/Pelvis w/ IV Contrast (IV Onl) abd pain, ugib Report EXAMINATION: CT of the abdomen and pelvis with IV contrast. EXAM DATE and TIME: 06/06/2021 5:53 PM EST INDICATION: abd pain, ugib ADDITIONAL INFORMATION: 55-year-old male with acute abdominal pain and upper GI bleeding presents for evaluation COMPARISON: None LIMITATIONS: Evaluation of the hollow viscera is limited due to the lack of oral contrast. TECHNIQUE: Contiguous multiplanar 3 mm images were obtained from the levels of the lung bases through the pelvis during dynamic infusion of 75 ml of intravenous Isovue 370. Images were reformatted in coronal and sagittal projections using the raw CT data and were interpreted in conjunction with the axial images to render the findings listed below. Before infusion of intravenous contrast, radiology personnel investigated the possibility of an allergic history and any history of reaction to iodinated contrast material. FINDINGS: Included images of the lower thorax: There is bandlike scarring/atelectasis in the right middle lobe and near the right lung base. No focal consolidation. Hepatobiliary: There is diffuse fatty metamorphosis of the liver. No enhancing hepatic lesion is seen. No intrahepatic biliary ductal dilation. Gallbladder appears normal. Spleen: Unremarkable. Pancreas: Unremarkable. Adrenal glands: Unremarkable. Kidneys, ureters and bladder: No hydronephrosis or nephrolithiasis. The urinary bladder is unremarkable in Computed Tomography Report appearance. Abdominal and pelvic vasculature: Atherosclerotic vascular calcifications are present. Gastrointestinal: Intramural gas is present in the cecal and ascending colonic wall gas (series 2, image [id number]). Colonic diverticulosis is present without evidence of diverticulitis. There is no evidence of obstruction. No pericecal inflammation to suggest acute appendicitis. Peritoneum, retroperitoneum and mesentery: No free fluid or free air. Lymph nodes: No abdominal or pelvic lymphadenopathy is evident. Solid pelvic viscera: Unremarkable. Visualized musculoskeletal structures: Multilevel spondylosis is present. There are degenerative changes of the sacroiliac joints bilaterally. No acute fracture or traumatic dislocation identified. IMPRESSION: 1. Intramural gas near the cecum and ascending colon, compatible with pneumatosis coli. 2. Hepatic steatosis. 3. Additional chronic findings as above. CRITICAL TEST RESULT COMMUNICATION: The findings were discussed with Dr. Diallo on 06/06/2021 at 6:38 PM. Report Dictated on Final Dictating Physician: MD DE LA O CHRISTOPHER Signed Date and Time: 06/06/2021 6:39 pm Signed by: MD DE LA O CHRISTOPHER Transcribed Date and Time: 06/06/2021 6:40 Normal [facility] Comp Metabolic Panelon 06-06 ALP [Catalytic activity/Vol] 101 U/L Normal 38-126 [facility] Comment on above: Performed By: #### E TOH4, PT, HEMOG, LIPA4, MG3, CMP3 #### [facility] [address] [place] [address] Anion gap [Moles/Vol] 14 mmol/L High 3-13 [facility] Comment on above: Performed By: #### E TOH4, PT, HEMOG, LIPA4, MG3, CMP3 #### [facility] [address] [place] [address] AST [Catalytic activity/Vol] 191 U/L High 15-46 [facility] Comment on above: Performed By: #### E TOH4, PT, HEMOG, LIPA4, MG3, CMP3 #### [facility] [address] [place] [address] Bilirubin [Mass/Vol] 0.7 mg/dL Normal 0.2-1.3 [facility] Comment on above: Performed By: #### E TOH4, PT, HEMOG, LIPA4, MG3, CMP3 #### [facility] [address] [place] [address] CO2 [Moles/Vol] 25 mmol/L Normal 22-30 [facility] Comment on above: Performed By: #### E TOH4, PT, HEMOG, LIPA4, MG3, CMP3 #### [facility] [address] [place] [address] Creatinine [Mass/Vol] 0.73 mg/dL Normal 0.52-1.25 [facility] Comment on above: Performed By: #### E TOH4, PT, HEMOG, LIPA4, MG3, CMP3 #### [facility] [address] [place] [address] eGFR OTHER > 90.0 Normal >60 [facility] Comment on above: Result Comment: KDIG O guidelines provide the following GFR categories: Stage GFR(ml/min/1.73 m2) Terms G1 >=90 Normal or high G2 60-89 Mildly decreased* G3a 45-59 Mildly to moderately decreased G3b 30-44 Moderately to severely decreased G4 15-29 Severely decreased G5 <15 Kidney failure *Relative to young adult level. In the absence of evidence of kidney damage, neither GFR category G1 nor G2 fulfill the criteria for CKD. The CKD-EPI equation is validated in individuals 18 years of age and older. Currently the best equation for estimating glomerular filtration rate (GFR) from serum creatinine in children is the Bedside Francis equation. It is less accurate in patients with extremes of muscle mass, restriction of dietary protein, ingestion of creatine, extra-renal metabolism of creatinine, or treatment with medications that affect renal tubular creatinine secretion. Performed By: #### E TOH4, PT, HEMOG, LIPA4, MG3, CMP3 #### [facility] [address] [place] [address] GFR/1.73 sq M.predicted among blacks MDRD (S/P/Bld) [Vol rate/Area] mL/min/{1.73_m2} Normal >60 [facility] Comment on above: Performed By: #### E TOH4, PT, HEMOG, LIPA4, MG3, CMP3 #### [facility] [address] [place] [address] Protein [Mass/Vol] 7.8 g/dL Normal 6.3-8.2 [facility] Comment on above: Performed By: #### E TOH4, PT, HEMOG, LIPA4, MG3, CMP3 #### [facility] [address] [place] [address] Urea nitrogen [Mass/Vol] 7 mg/dL Normal 7-17 [facility] Comment on above: Performed By: #### E TOH4, PT, HEMOG, LIPA4, MG3, CMP3 #### [facility] [address] [place] [address] Chloride [Moles/Vol] 95 mmol/L Low 98-107 [facility] Comment on above: Performed By: #### E TOH4, PT, HEMOG, LIPA4, MG3, CMP3 #### [facility] [address] [place] [address] Potassium [Moles/Vol] 4.1 mmol/L Normal 3.5-5.1 [facility] Comment on above: Result Comment: Slig htly hemolysed, interpret with caution. Performed By: #### E TOH4, PT, HEMOG, LIPA4, MG3, CMP3 #### [facility] [address] [place] [address] Sodium [Moles/Vol] 133 mmol/L Low 135-145 [facility] Comment on above: Performed By: #### E TOH4, PT, HEMOG, LIPA4, MG3, CMP3 #### [facility] [address] [place] [address] Albumin [Mass/Vol] 4.6 g/dL Normal 3.5-5.0 [facility] Comment on above: Performed By: #### E TOH4, PT, HEMOG, LIPA4, MG3, CMP3 #### [facility] [address] [place] [address] ALT [Catalytic activity/Vol] 197 U/L High 0-49 [facility] Comment on above: The ALT test is perf ormed by an updated assay method. Please note that the reference intervals have been changed and are now sex specific. Result Comment: The ALT test is performed by an updated assay method. Please note that the reference intervals have been changed and are now sex specific. Performed By: #### E TOH4, PT, HEMOG, LIPA4, MG3, CMP3 #### [facility] [address] [facility] [address] [place] [address] Calcium [Mass/Vol] 9.2 mg/dL Normal 8.4-10.4 [facility] Comment on above: Performed By: #### E TOH4, PT, HEMOG, LIPA4, MG3, CMP3 #### [facility] [address] [address] [place] [address] Glucose [Mass/Vol] 105 mg/dL High 70-100 [facility] Comment on above: Performed By: #### E TOH4, PT, HEMOG, LIPA4, MG3, CMP3 #### [facility] [address] [facility] [place] [address] Comprehensive Metabolic Pane arnulfo 06-06-2021 Albumin [Mass/Vol] 4.6 g/dL 3.5 - 5.0 g/dL [facility] ALP (Bld) [Catalytic activity/Vol] 101 U/L 38 - 126 U/L [facility] Anion gap [Moles/Vol] 14 mmol/L High 3 - 13 mmol/L [facility] AST [Catalytic activity/Vol] 191 U/L High 15 - 46 U/L [facility] Bilirubin [Mass/Vol] 0.7 mg/dL 0.2 - 1 .3 mg/dL [facility] Chloride [Moles/Vol] 95 mmol/L Low 98 - 10 7 mmol/L [facility] CO2 [Moles/Vol] 25 mmol/L 22 - 30 mmol/L [facility] Creatinine [Mass/Vol] 0.73 mg/dL 0.52 - 1.25 mg/dL [facility] EGFR IF NonAfrican Marshallese >90.0 >60 mL/min [facility] Comment on above: KDIGO guidelines pro vide the following GFR categories: Stage GFR(ml/min/1.73 m2) Terms G1 >=90 Normal or high G2 60-89 Mildly decreased* G3a 45-59 Mildly to moderately decreased G3b 30-44 Moderately to severely decreased G4 15-29 Severely decreased G5 <15 Kidney failure *Relative to young adult level. In the absence of evidence of kidney damage, neither GFR category G1 nor G2 fulfill the criteria for CKD. The CKD-EPI equation is validated in individuals 18 years of age and older. Currently the best equation for estimating glomerular filtration rate (GFR) from serum creatinine in children is the Bedside Francis equation. It is less accurate in patients with extremes of muscle mass, restriction of dietary protein, ingestion of creatine, extra-renal metabolism of creatinine, or treatment with medications that affect renal tubular creatinine secretion. Free PSA/Total PSA [Mass fraction] 7.8 g/dL 6.3 - 8.2 g/dL [facility] GFR/1.73 sq M.predicted among blacks MDRD (S/P/Bld) [Vol rate/Area] mL/min/{1.73_m2} >60 mL/min [facility] Interpretation and review of laboratory results Abnormal [facility] Potassium [Moles/Vol] 4.1 mmol/L 3.5 - 5.1 mmol/L [facility] Comment on above: Slightly hemolysed, interpret with caution. Sodium [Moles/Vol] 133 mmol/L Low 135 - 145 mmol/L [facility] Urea nitrogen (BldV) [Mass/Vol] 7 mg/dL 7 - 17 mg/dL [facility] EKG 12 Lead - Chest Painon 0 06-06-2021 [facility] Test Date: 2021-06-06 Pat Name: [facility] Department: 2BED Room: 05 Gender: M Casing Mixer: ROJAS : 1965 Requested By: CATALINO DIALLO Order Number: [id number] Reading MD: Catalino Diallo Measurements Intervals [place] Rate: 93 P: 60 VA: 168 QRS: 75 QRSD: 86 T: 48 QT: 372 QTc: 463 Interpretive Statements SINUS RHYTHM rate 93 Normal intervals and QRS duration NO acute ischemic changes Electronically Signed On 06-06-2021 17:05:37 EST by Catalino Diallo [facility] Catalino Diallo, DO - 06/06/2021 [facility] Test Date: 2021-06-06 Pat Name: [facility] Department: 2BED Room: 05 Gender: M Casing Mixer: ROJAS : 1965 Requested By: CATALINO DIALLO Order Number: [id number] Reading MD: Catalino Diallo Measurements Intervals [place] Rate: 93 P: 60 VA: 168 QRS: 75 QRSD: 86 T: 48 QT: 372 QTc: 463 Interpretive Statements SINUS RHYTHM rate 93 Normal intervals and QRS duration NO acute ischemic changes Electronically Signed On 06-06-2021 17:05:37 EST by Catalino Diallo [facility] Work Phone: [facility] Work Phone: Ethanolon 06-06-2021 Ethanol Lvl 0.364 g/dL Critically high 0.000 - 0.010 g/dL [facility] Comment on above: NOTE: This result is for medical treatment only. Analysis performed using non-forensic procedures. Interpretation and review of laboratory results Abnormal [facility] Test Performed by [facility], [address] LAB [facility] Ethanol Serum/Plasmaon 06-06 Ethanol-Serum/Plasma 0.364 g/dL Critically high 0.00 0-0.01 0 [facility] Comment on above: Result Comment: NOTE : This result is for medical treatment only. Analysis performed using non-forensic procedures. Performed By: #### C UA2 #### [facility] [address] [place] [address] Hemogramon 06-06-2021 Erythrocyte distribution width (RBC) [Ratio] 13.6 % Normal 11.5-14.5 [facility] Comment on above: Performed By: #### E TOH4, PT, HEMOG, LIPA4, MG3, CMP3 #### [facility] [address] [place] [address] Hematocrit (Bld) [Volume fraction] 49.2 % Normal 40.0-52.0 [facility] Comment on above: Performed By: #### E TOH4, PT, HEMOG, LIPA4, MG3, CMP3 #### [facility] [address] [place] [address] Hemoglobin (Bld) [Mass/Vol] 17.0 g/dL Normal 13.0-18.0 [facility] Comment on above: Performed By: #### E TOH4, PT, HEMOG, LIPA4, MG3, CMP3 #### [facility] [address] [place] [address] MCH (RBC) [Entitic mass] 33.1 pg Normal 26.0-34.0 [facility] Comment on above: Performed By: #### E TOH4, PT, HEMOG, LIPA4, MG3, CMP3 #### [facility] [address] [place] [address] MCHC 34.6 % Normal 32.0-36.0 [facility] Comment on above: Performed By: #### E TOH4, PT, HEMOG, LIPA4, MG3, CMP3 #### [facility] [address] [place] [address] MCV (RBC) [Entitic vol] 95.6 fL Normal 80.0-98.0 [facility] Comment on above: Performed By: #### E TOH4, PT, HEMOG, LIPA4, MG3, CMP3 #### [facility] [address] [place] [address] Platelet mean volume (Bld) [Entitic vol] 6.6 fL Low 7.4-10.4 [facility] Comment on above: Performed By: #### E TOH4, PT, HEMOG, LIPA4, MG3, CMP3 #### [facility] [address] [place] [address] Platelets (Bld) [#/Vol] 271 10*3/uL Normal 140-440 [facility] Comment on above: Performed By: #### E TOH4, PT, HEMOG, LIPA4, MG3, CMP3 #### [facility] [address] [place] [address] RBC (Bld) [#/Vol] 5.14 10*6/uL Normal 4.40-5.90 [facility] Comment on above: Performed By: #### E TOH4, PT, HEMOG, LIPA4, MG3, CMP3 #### [facility] [address] [place] [address] WBC (Bld) [#/Vol] 4.8 10*3/uL Normal 3.6-10.7 [facility] Comment on above: Performed By: #### E TOH4, PT, HEMOG, LIPA4, MG3, CMP3 #### [facility] [address] [place] [address] Hemogram (CBC)on 06-06-2021 Hematocrit (Bld) [Volume fraction] 49.2 % 40.0 - 52.0 % [facility] Hemoglobin.gastrointest inal spec 1 Ql (Stl) 17.0 g/dL 13.0 - 18.0 g/dL [facility] Interpretation and review of laboratory results Abnormal [facility] MCH (RBC) [Entitic mass] 33.1 pg 26.0 - 34.0 pg [facility] MCHC (RBC) [Mass/Vol] 34.6 % 32.0 - 36.0 % [facility] MCV (RBC) [Entitic vol] 95.6 fL 80.0 - 98.0 fL [facility] Platelet distribution width (Bld) [Ratio] 13.6 % 11.5 - 14.5 % [facility] Platelet mean volume (Bld) [Entitic vol] 6.6 fL Low 7.4 - 10.4 fL [facility] Platelets (Bld) [#/Vol] 271 10*3/uL 140 - 440 10*3/uL [facility] RBC (Bld) [#/Vol] 5.14 10*6/uL 4.40 - 5.90 10*6/uL [facility] WBC (Bld) [#/Vol] 4.8 10*3/uL 3.6 - 10.7 10*3/uL [facility] Test Performed by [facility], [address] , [place], [place] [id number] [place] [address] LAB [facility] Lipaseon 06-06-2021 Lipase [Catalytic activity/Vol] 197 U/L Normal 23-300 [facility] Comment on above: Performed By: #### E TOH4, PT, HEMOG, LIPA4, MG3, CMP3 #### [facility] [address] [place] [address] Magnesiumon 06-06-2021 Magnesium [Mass/Vol] 2.0 mg/dL Normal 1.6-2.3 [facility] Comment on above: Performed By: #### E TOH4, PT, HEMOG, LIPA4, MG3, CMP3 #### [facility] [address] [place] [address] No Panel Informationon 06-06 Test Performed by [facility], [address] , [address] LAB [facility] Prothrombin Timeon INR 1.0 Normal 0.9-1.1 [facility] Comment on above: Result Comment: Abraham mmended Anticoagulant Therapy: SEE BELOW ----- INR of 2.0 - 3.0 : - Prophylaxis of Venous Thrombosis (high-risk surgery) - Treatment of Venous Thrombosis - Treatment of Pulmonary Embolism (Includes tissue heart valves, Acute Myocardial Infarction to prevent systemic embolism, Valvular Heart Disease, and Atrial Fibrillation) ----- INR of 2.5 - 3.5 : - Mechanical Prosthetic Valves (high risk) - If oral anticoagulant therapy is used to prevent Myocardial Infarction Performed By: #### E TOH4, PT, HEMOG, LIPA4, MG3, CMP3 #### [facility] [address] [place] [address] PT Coag (PPP) [Time] 10.7 s Normal 9.0-12.0 [facility] Comment on above: . Result Comment: . Performed By: #### E TOH4, PT, HEMOG, LIPA4, MG3, CMP3 #### [facility] [address] [place] [address] Protime-INRon 06-06-2021 INR Coag (Bld) [Relative time] 1.0 {INR} [facility] Comment on above: Recommended Anticoag ulant Therapy: SEE BELOW ----- INR of 2.0 - 3.0 : - Prophylaxis of Venous Thrombosis (high-risk surgery) - Treatment of Venous Thrombosis - Treatment of Pulmonary Embolism (Includes tissue heart valves, Acute Myocardial Infarction to prevent systemic embolism, Valvular Heart Disease, and Atrial Fibrillation) ----- INR of 2.5 - 3.5 : - Mechanical Prosthetic Valves (high risk) - If oral anticoagulant therapy is used to prevent Myocardial Infarction Test Performed by [facility], [address] , [address] LAB [facility] TS GELon 06-06-2021 TS GEL ABO Group: A Rh, Gel: POS Antibody Screen Gel: NEG Normal [facility] Comment on above: Performed By: #### C UA2 #### [facility] [address] [place] [address] TYPE AND SCREENon 06-06-2021 ABO Grouping A [facility] Rh Type Positive [facility] Test Performed by [facility], [address] , [address] LAB [facility] Complete Urinalysison 2021 Appearance (U) Clear Normal Clear [facility] Comment on above: Result Comment: . Performed By: #### C UA2 #### [facility] [address] [place] [address] Bilirubin,Urine Negative Normal Negative [facility] Comment on above: Result Comment: . Performed By: #### C UA2 #### [facility] [address] [place] [address] Color (U) LIGHT YELLOW Normal Lt. Yellow [facility] Comment on above: Result Comment: . Performed By: #### C UA2 #### [facility] [address] [place] [address] Glucose Ql (U) Normal Normal Normal (<70) [facility] Comment on above: Result Comment: . Performed By: #### C UA2 #### [facility] [address] [place] [address] Ketone,Urine Negative Normal Negative [facility] Comment on above: Result Comment: . Performed By: #### C UA2 #### [facility] [address] [place] [address] Leukocytes,Urine Negative Normal Negative [facility] Comment on above: Result Comment: . Performed By: #### C UA2 #### [facility] [address] [place] [address] Nitrites,Urine Negative Normal Negative [facility] Comment on above: Result Comment: . Performed By: #### C UA2 #### [facility] [address] [place] [address] Occult Blood,Urine Negative Normal Negative [facility] Comment on above: Result Comment: . Performed By: #### C UA2 #### [facility] [address] [place] [address] pH,Urine 6.5 Normal 5.0-8.0 [facility] Comment on above: Result Comment: . Performed By: #### C UA2 #### [facility] [address] [place] [address] Specific [place],Urine 1.008 Normal 1.005 - 1.030 [facility] Comment on above: Result Comment: . Performed By: #### C UA2 #### [facility] [address] [place] [address] Total Protein,Urine Negative Normal Negative [facility] Comment on above: Result Comment: . Performed By: #### C UA2 #### [facility] [address] [place] [address] Urobilinogen,Urine Normal Normal Normal (0-1) [facility] Comment on above: Result Comment: . Performed By: #### C UA2 #### [facility] [address] [place] [address] UrinalysisOrdered By: Gary Sheikh on 04-06-2021 Appearance (U) Clear Clear NA [employer] Work Phone: Comment on above: . Bilirubin Urine Negative Negative mg/dL [facility] Work Phone: Comment on above: . Color (U) LIGHT YELLOW Lt. Yellow NA [facility] Work Phone: Comment on above: . Glucose, Ur Normal Normal (<70) mg/dL [facility] Work Phone: Comment on above: . Ketones Ql (U) Negative Negative mg/dL [facility] [employer] Work Phone: Comment on above: . LEUKOCYTES, UA Negative Negative Estefani/uL [employer] Work Phone: Comment on above: . Nitrite, Urine Negative Negative NA [facility] Work Phone: Comment on above: . Occult Blood,Urine Negative Negative mg/dL [facility] Work Phone: Comment on above: . pH (U) 6.5 [pH] [facility] Work Phone: Comment on above: . Specific [place], Urine 1.[address] [facility] Work Phone: Comment on above: . Total Protein, Urine Negative Negativ e mg/dL [facility] Work Phone: Comment on above: . Urobilinogen, Urine Normal Normal (0-1) mg/dL [facility] Work Phone: Comment on above: . [facility] Work Phone: Urinalysison 04-06-2021 Test Performed by [facility], [address] [place], [place] [address] LAB Comp Metabolic Panelon 02-15 Albumin [Mass/Vol] 4.1 g/dL Normal 3.5-5.0 [facility] Comment on above: Performed By: #### C OVAG #### [facility] [address] [place] [address] ALP [Catalytic activity/Vol] 92 U/L Normal 38-126 [facility] Comment on above: Performed By: #### C OVAG #### [facility] [address] [place] [address] ALT [Catalytic activity/Vol] 109 U/L High 0-49 [facility] Comment on above: Result Comment: The ALT test is performed by an updated assay method. Please note that the reference intervals have been changed and are now sex specific. Performed By: #### C OVAG #### [facility] [address] [place] [address] Anion gap [Moles/Vol] 12 mmol/L Normal 3-13 [facility] Comment on above: Performed By: #### C OVAG #### [facility] [address] [place] [address] AST [Catalytic activity/Vol] 92 U/L High 15-46 [facility] Comment on above: Performed By: #### C OVAG #### [facility] [address] [place] [address] Bilirubin [Mass/Vol] 0.4 mg/dL Normal 0.2-1.3 [facility] Comment on above: Performed By: #### C OVAG #### [facility] [address] [place] [address] Calcium [Mass/Vol] 8.8 mg/dL Normal 8.4-10.4 [facility] Comment on above: Performed By: #### C OVAG #### [facility] [address] [place] [address] Chloride [Moles/Vol] 100 mmol/L Normal 98-107 [facility] Comment on above: Performed By: #### C OVAG #### [facility] [address] [place] [address] CO2 [Moles/Vol] 25 mmol/L Normal 22-30 [facility] Comment on above: Performed By: #### C OVAG #### [facility] [address] [place] [address] Creatinine [Mass/Vol] 0.58 mg/dL Normal 0.52-1.25 [facility] Comment on above: Performed By: #### C OVAG #### [facility] [address] [place] [address] eGFR OTHER > 90.0 Normal >60 [facility] Comment on above: Result Comment: KDIG O guidelines provide the following GFR categories: Stage GFR(ml/min/1.73 m2) Terms G1 >=90 Normal or high G2 60-89 Mildly decreased* G3a 45-59 Mildly to moderately decreased G3b 30-44 Moderately to severely decreased G4 15-29 Severely decreased G5 <15 Kidney failure *Relative to young adult level. In the absence of evidence of kidney damage, neither GFR category G1 nor G2 fulfill the criteria for CKD. The CKD-EPI equation is validated in individuals 18 years of age and older. Currently the best equation for estimating glomerular filtration rate (GFR) from serum creatinine in children is the Bedside Francis equation. It is less accurate in patients with extremes of muscle mass, restriction of dietary protein, ingestion of creatine, extra-renal metabolism of creatinine, or treatment with medications that affect renal tubular creatinine secretion. Performed By: #### C OVAG #### [facility] [address] [place] [address] GFR/1.73 sq M.predicted among blacks MDRD (S/P/Bld) [Vol rate/Area] mL/min/{1.73_m2} Normal >60 [facility] Comment on above: Performed By: #### C OVAG #### [facility] [address] [place] [address] Glucose [Mass/Vol] 129 mg/dL High 70-100 [facility] Comment on above: Performed By: #### C OVAG #### [facility] [address] [place] [address] Potassium [Moles/Vol] 3.9 mmol/L Normal 3.5-5.1 [facility] Comment on above: Performed By: #### C OVAG #### [facility] [address] [place] [address] Protein [Mass/Vol] 7.0 g/dL Normal 6.3-8.2 [facility] Comment on above: Performed By: #### C OVAG #### [facility] [address] [place] [address] Sodium [Moles/Vol] 137 mmol/L Normal 135-145 [facility] Comment on above: Performed By: #### C OVAG #### [facility] [address] [place] [address] Urea nitrogen [Mass/Vol] 3 mg/dL Low 7-17 [facility] Comment on above: Performed By: #### C OVAG #### [facility] [address] [place] [address] Drugs of Abuseon 02-15-2021 Amphetamines, Ur Negative Normal [facility] Comment on above: Performed By: #### D RGA4 #### [facility] [address] [place] [address] Barbiturates, Ur Negative Normal [facility] Comment on above: Performed By: #### D RGA4 #### [facility] [address] [place] [address] Benzodiazepines, Ur Negative Normal [facility] Comment on above: Performed By: #### D RGA4 #### [facility] [address] [place] [address] Cocaine, Ur Negative Normal [facility] Comment on above: Performed By: #### D RGA4 #### [facility] [address] [place] [address] Methadone, Ur Negative Normal [facility] Comment on above: Performed By: #### D RGA4 #### [facility] [address] [place] [address] Opiates, Ur Negative Normal [facility] Comment on above: Performed By: #### D RGA4 #### [facility] [address] [place] [address] Oxycodone/Oxymorphine,U r Negative Normal [facility] Comment on above: Performed By: #### D RGA4 #### [facility] [address] [place] [address] Phencyclidine (PCP), Ur Negative Normal [facility] Comment on above: Result Comment: The expected value for all of the drugs listed above is Negative. The following drugs or drug groups have been screened for by Immunoassay at the following thresholds: Amphetamine class (1000 ng/mL), Barbiturates (200 ng/mL), Benzodiazepines (200 ng/mL), Cocaine (300 ng/mL), Methadone (300 ng/mL), Opiates (300 ng/mL), Oxycodone (100 ng/mL), and PCP (25 ng/mL). NOTE: These results are for medical treatment only. Analysis performed using non-forensic procedures. POSITIVE results are NOT confirmed by a more specific alternative method unless requested. If confirmation is needed, request confirmation under separate order. Performed By: #### D RGA4 #### [facility] [address] [place] [address] ED Provider Noteon ED Provider Note That heEmergency Department Encounter [facility] Patient: Maria De Jesus Hogan : 1965 Date of Evaluation: 02/15/2021 ED Supervising Physician: CATALINO MUJICA MD I independently examined and evaluated Maria De Jesus Hogan. In brief, Maria De Jesus Hogan is a 55 y.o. male that presents to the emergency department complaining of wanting to be detox. The patient states that he drinks beer on a daily basis. 6-8 tall boy appears on a daily basis. He has been doing this for nearly a year. He notes that he was detoxed 2 years ago. He was sober for approximately 6 months. He has a history of depression and anxiety. He denies any thoughts of hurting himself or others. Focused exam: On examination the patient is a middle-aged male found lying on a cart. He is alert and oriented. He answers questions appropriately. Smell of alcohol is present. The oropharynx is clear. Chest is clear. Normal cardiac exam. The abdomen is soft flat and is nontender. Bowel sounds are normal active. Brief ED course/MDM: The patient is an alcoholic who notes that he has been drinking significant amounts of alcohol on a daily basis. He is requesting detox. He does not appear to be in acute withdrawal at this time. We have contacted the detox unit at [facility] who will accept this patient in admission. All diagnostic, treatment, and disposition decisions were made by myself in conjunction with the LENY. For all further details of the patient's emergency department visit, please see their documentation. (Please note that portions of this note may have been completed with a voice recognition program. Efforts were made to edit the dictations but occasionally words are mis-transcribed.) CATALINO MUJICA MD Acute Care [facility] Catalino Mujica MD 02/15/21 1837 [facility] ED Provider Note [facility] ED eMERGENCY dEPARTMENT eNCOUnter Pt Name: Maria De Jesus Hogan Birthdate 1965 Date of evaluation: 02/15/2021 Provider: Shelyl Clarke APRN - WAITSTAFF CAPTAIN This patient was seen in conjunction with Dr. Mujica CHIEF COMPLAINT Chief Complaint Patient presents with ? Alcohol Problem HISTORY OF PRESENT ILLNESS (Location/Symptom, Timing/Onset,Context/Setti ng, Quality, Duration, Modifying Factors, Severity) Note limiting factors. HPI Maria De Jesus Hogan is a 55 y.o. male who presents to the emergency department with alcohol intoxication and requesting alcohol detox. Patient states he was admitted at [facility] a few years ago was sober for about a year and then fell off the wagon. He is drinking 8-10 tall boy 8% natural light beers a day. Last drink was about an hour ago. Denies drug use. Denies chest pain shortness of breath fevers or chills. States he is vaccinated for COVID-19. Nursing Notes were reviewed. REVIEW OF SYSTEMS (2+ for4; 10+ for level 5) Review of Systems Constitutional: Negative for activity change, appetite change, chills and fever. HENT: Negative for congestion, ear discharge, ear pain, hearing loss, postnasal drip, rhinorrhea and sore throat. Eyes: Negative for discharge and redness. Respiratory: Negative for chest tightness and shortness of breath. Cardiovascular: Negative for chest pain. Gastrointestinal: Negative for abdominal pain, diarrhea, nausea and vomiting. Genitourinary: Negative for dysuria. Musculoskeletal: Negative for arthralgias and myalgias. Skin: Negative for color change. Neurological: Negative for dizziness, light-headedness and headaches. Psychiatric/Behavioral: Negative for confusion. All other systems reviewed and are negative. PAST MEDICAL HISTORY Past Medical History: Diagnosis Date ? Alcoholism (HCC) ? Anxiety ? Cerebral artery occlusion with cerebral infarction (HCC) ? Cerebrovascular disease ? Depression ? Hypertension ? Insomnia SURGICALHISTORY Past Surgical History: Procedure Laterality Date ? CYST REMOVAL face ? ENDOSCOPY, COLON, DIAGNOSTIC 06/10/2020 EGD/Dr Madison/[facility] ? WISDOM TOOTH EXTRACTION CURRENT MEDICATIONS Previous Medications ALBUTEROL SULFATE HFA (PROAIR HFA) 108 (90 BASE) MCG/ACT INHALER Inhale 2 puffs into the lungs every 6 hours as needed for Wheezing GABAPENTIN (NEURONTIN) 600 MG TABLET Take 1 tablet by mouth 3 times daily for 30 days. GABAPENTIN (NEURONTIN) 600 MG TABLET Take 1 tablet by mouth 3 times daily for 30 days. OMEPRAZOLE (PRILOSEC) 20 MG DELAYED RELEASE CAPSULE Take 1 capsule by mouth every morning (before breakfast) ROSUVASTATIN (CRESTOR) 10 MG TABLET Take 1 tablet by mouth nightly Bee venom, Venomil honey bee venom [honey bee venom], Nickel, Other, and Ultram [tramadol] FAMILY HISTORY Family History Problem Relation Age of Onset ? Cancer Mother colon rectal cancer; dx after age 50 ? Other Mother alcoholism ? Other Father h/o rheumatic fever, cardiac arrest due to bee sting ? Depression Sister ? Other Sister agoraphobia SOCIAL HISTORY Social History Socioeconomic History ? Marital status: Spouse name: None ? Number of children: None ? Years of education: None ? Highest education level: None Occupational History ? None Tobacco Use ? Smoking status: Current Every Day Smoker Packs/day: 1.50 Years: 17.00 Pack years: 25.50 ? Smokeless tobacco: Never Used Vaping Use ? Vaping Use: Never used Substance and Sexual Activity ? Alcohol use: Yes Comment: 24 oz 12% beer ? Drug use: No ? Sexual activity: None Comment: live with Other Topics Concern ? None Social History Narrative ? None Social Determinants of Health Financial Resource Strain: ? Difficulty of Paying Living Expenses: Not on file Food Insecurity: ? Worried About Running Out of Food in the Last Year: Not on file ? Ran Out of Food in the Last Year: Not on file Transportation Needs: ? Lack of Transportation (Medical): Not on file ? Lack of Transportation (Non-Medical): Not on file Physical Activity: ? Days of Exercise per Week: Not on file ? Minutes of Exercise per Session: Not on file Stress: ? Feeling of Stress : Not on file Social Connections: ? Frequency of Communication with Friends and Family: Not on file ? Frequency of Social Gatherings with Friends and Family: Not on file ? Attends Synagogue Services: Not on file ? Active Member of Clubs or Organizations: Not on file ? Attends Club or Organization Meetings: Not on file ? Marital Status: Not on file Intimate Partner Violence: ? Fear of Current or Ex-Partner: Not on file ? Emotionally Abused: Not on file ? Physically Abused: Not on file ? Sexually Abused: Not on file Housing Stability: ? Unable to Pay for Housing in the Last Year: Not on file ? Number of Places Lived in the Last Year: Not on file ? Unstable Housing in t (more content not included)... Normal [email or web address] Ethanol Serum/Plasmaon 02-15 Ethanol-Serum/Plasma 0.288 g/dL High 0.000-0 .01 0 [facility] Comment on above: Result Comment: NOTE : This result is for medical treatment only. Analysis performed using non-forensic procedures. Performed By: #### C OVAG #### [email or web address] [address] [place] [address] Hemogram w/ Autodiffon 02-15 Abs Baso Cnt 0.1 10*3/uL Normal 0.0-0.2 [facility] Comment on above: Performed By: #### C OVAG #### [facility] [address] [place] [address] Abs Neutrophile Cnt 3.2 10*3/uL Normal 1.8-7.0 [facility] Comment on above: Performed By: #### C OVAG #### [facility] [address] [place] [address] Basophils/100 WBC (Bld) 1.1 % Normal 0.0-2.0 [facility] Comment on above: Performed By: #### C OVAG #### [facility] [address] [place] [address] Eosinophils (Bld) [#/Vol] 0.1 10*3/uL Normal 0.0-0.5 [facility] Comment on above: Performed By: #### C OVAG #### [facility] [address] [place] [address] Eosinophils/100 WBC (Bld) 2.4 % Normal 1.0-6.0 [facility] Comment on above: Performed By: #### C OVAG #### [facility] [address] [place] [address] Erythrocyte distribution width (RBC) [Ratio] 14.2 % Normal 11.5-14.5 [facility] Comment on above: Performed By: #### C OVAG #### [facility] [address] [place] [address] Granulocytes/100 WBC (Bld) 55.7 % Normal 40.0-80.0 [facility] Comment on above: Performed By: #### C OVAG #### [facility] [address] [place] [address] Hematocrit (Bld) [Volume fraction] 45.9 % Normal 40.0-52.0 [facility] Comment on above: Performed By: #### C OVAG #### [facility] [address] [place] [address] Hemoglobin (Bld) [Mass/Vol] 15.7 g/dL Normal 13.0-18.0 [facility] Comment on above: Performed By: #### C OVAG #### [facility] [address] [place] [address] Lymphocytes (Bld) [#/Vol] 1.7 10*3/uL Normal 1.0-4.3 [facility] Comment on above: Performed By: #### C OVAG #### [facility] [address] [place] [address] Lymphocytes/100 WBC (Bld) 29.7 % Normal 20.0-40.0 [facility] Comment on above: Performed By: #### C OVAG #### [facility] [address] [place] [address] MCH (RBC) [Entitic mass] 34.2 pg High 26.0-34.0 [facility] Comment on above: Performed By: #### C OVAG #### [facility] [address] [place] [address] MCHC 34.2 % Normal 32.0-36.0 [facility] Comment on above: Performed By: #### C OVAG #### [facility] [address] [place] [address] MCV (RBC) [Entitic vol] 99.9 fL High 80.0-98.0 [facility] Comment on above: Performed By: #### C OVAG #### [facility] [address] [place] [address] Monocytes (Bld) [#/Vol] 0.6 10*3/uL Normal 0.0-0.8 [facility] Comment on above: Performed By: #### C OVAG #### [facility] [address] [place] [address] Monocytes/100 WBC (Bld) 11.1 % High 2.0-10.0 [facility] Comment on above: Performed By: #### C OVAG #### [facility] [address] [place] [address] Platelet mean volume (Bld) [Entitic vol] 6.6 fL Low 7.4-10.4 [facility] Comment on above: Performed By: #### C OVAG #### [facility] [address] [place] [address] Platelets (Bld) [#/Vol] 230 10*3/uL Normal 140-440 [facility] Comment on above: Performed By: #### C OVAG #### [facility] [address] [place] [address] RBC (Bld) [#/Vol] 4.59 10*6/uL Normal 4.40-5.90 [facility] Comment on above: Performed By: #### C OVAG #### [facility] [address] [place] [address] WBC (Bld) [#/Vol] 5.7 10*3/uL Normal 3.6-10.7 [facility] Comment on above: Performed By: #### C OVAG #### [facility] [address] [place] [address] SARS-CoV-2 Antigenon 021 SARS-CoV-2 Antigen Negative Normal Negative [facility] Comment on above: Result Comment: A negative result does not rule out the possibility of SARS-CoV-2 infection. NAAT-based methods should be considered for symptomatic patients presenting greater than seven days after onset of symptoms. Method: Lateral flow immunoassay. Fact sheets for healthcare providers and patients can be found at the following sites: https://www.fda.gov/media/723430/download https://www.fda.gov/media/386774/download Performed By: #### C OVAG #### [facility] [address] [place] [address] CR Chest PA/LATon 11-18-2020 CR Chest PA/LAT Patient Name: MARIA DE JESUS SÁNCHEZ Diagnostic Radiology ACCESSION EXAM DATE/TIME PROCEDURE ORDERING PROVIDER [id number] 11/18/2020 13:11 EDT CR Chest PA and LAT MD RASHEED DIANA CPT code 43759 Reason For Exam (CR Chest PA and LAT) Cough Report Indication: Cough. Frontal and lateral views of the chest are compared to the study dated 06/09/2020. The heart is not enlarged. The mediastinum and pulmonary vascularity are within normal limits. Mild atelectatic changes are identified in the right lung base. There is no evidence of pneumonia. No sizable pleural effusion is visualized. IMPRESSION: 1. No active intrathoracic disease. No significant change when compared to the prior study. Report Dictated on Final Dictating Physician: DO HARMON ANTHONY Signed Date and Time: 11/18/2020 2:39 pm Signed by: DO HARMON ANTHONY Transcribed Date and Time: 11/18/2020 2:41 Normal [facility] XR CHEST (2 VW)Ordered By: Rolando Rasheed on 11-18-2020 Patient Name: MARIA DE JESUS SÁNCHEZ Diagnostic Radiology ACCESSION EXAM DATE/TIME PROCEDURE ORDERING PROVIDER [id number] 11/18/2020 13:11 EDT CR Chest PA & LAT MD RASHEED DIANA CPT code 00808 Reason For Exam (CR Chest PA & LAT) Cough Report Indication: Cough. Frontal and lateral views of the chest are compared to the study dated 06/09/2020. The heart is not enlarged. The mediastinum and pulmonary vascularity are within normal limits. Mild atelectatic changes are identified in the right lung base. There is no evidence of pneumonia. No sizable pleural effusion is visualized. IMPRESSION: 1. No active intrathoracic disease. No significant change when compared to the prior study. Report Dictated on --- Final --- Dictating Physician: DO HARMON ANTHONY Signed Date and Time: 11/18/2020 2:39 pm Signed by: DO HARMON ANTHONY Transcribed Date and Time: 11/18/2020 2:41 [facility] Work Phone: Jonny, [facility] Incoming Radiology Results From [facility] - 11/18/2020 2:41 PM EDT Patient Name: MARIA DE JESUS HOGAN Diagnostic Radiology ACCESSION EXAM DATE/TIME PROCEDURE ORDERING PROVIDER [id number] 11/18/2020 13:11 EDT CR Chest PA & LAT MD KATHYA, LYNDA CPT code 14626 Reason For Exam (CR Chest PA & LAT) Cough Report Indication: Cough. Frontal and lateral views of the chest are compared to the study dated 06/09/2020. The heart is not enlarged. The mediastinum and pulmonary vascularity are within normal limits. Mild atelectatic changes are identified in the right lung base. There is no evidence of pneumonia. No sizable pleural effusion is visualized. IMPRESSION: 1. No active intrathoracic disease. No significant change when compared to the prior study. Report Dictated on --- Final --- Dictating Physician: DO HARMON ANTHONY Signed Date and Time: 11/18/2020 2:39 pm Signed by: DO HARMON ANTHONY Transcribed Date and Time: 11/18/2020 2:41 [facility] Work Phone: [phone] [facility] Work Phone: [phone] Comprehensive Metabolic Pane lOrdered By: Lynda Rasheed on 09-01-2020 Albumin [Mass/Vol] 4.3 g/dL 3.5 - 5.0 g/dL [facility] Work Phone: [phone] ALP (Bld) [Catalytic activity/Vol] 92 U/L 38 - 126 U/L [facility] Work Phone: [phone] ALT [Catalytic activity/Vol] 32 U/L 0 - 49 U/L [facility] Work Phone: [phone] Comment on above: The ALT test is perf ormed by an updated assay method. Please note that the reference intervals have been changed and are now sex specific. Anion gap [Moles/Vol] 8 mmol/L 3 - 13 mmol/L [facility] Work Phone: [phone] AST [Catalytic activity/Vol] 33 U/L 15 - 46 U/L [facility] Work Phone: [phone] Bilirubin [Mass/Vol] 0.4 mg/dL 0.2 - 1 .3 mg/dL [facility] Work Phone: [phone] Calcium [Mass/Vol] 9.0 mg/dL 8.4 - 10. 4 mg/dL [facility] Work Phone: Chloride [Moles/Vol] 101 mmol/L 98 - 10 7 mmol/L [facility] Work Phone: [phone] CO2 [Moles/Vol] 27 mmol/L 22 - 30 mmol/L [facility] Work Phone: [phone] Creatinine [Mass/Vol] 0.7 mg/dL 0.52 - 1.25 mg/dL [facility] Work Phone: [phone] EGFR IF NonAfrican Marshallese >90.0 >60 mL/min [facility] Work Phone: [phone] Comment on above: KDIGO guidelines pro vide the following GFR categories: Stage GFR(ml/min/1.73 m2) Terms G1 >=90 Normal or high G2 60-89 Mildly decreased* G3a 45-59 Mildly to moderately decreased G3b 30-44 Moderately to severely decreased G4 15-29 Severely decreased G5 <15 Kidney failure *Relative to young adult level. In the absence of evidence of kidney damage, neither GFR category G1 nor G2 fulfill the criteria for CKD. The CKD-EPI equation is validated in individuals 18 years of age and older. Currently the best equation for estimating glomerular filtration rate (GFR) from serum creatinine in children is the Bedside Francis equation. It is less accurate in patients with extremes of muscle mass, restriction of dietary protein, ingestion of creatine, extra-renal metabolism of creatinine, or treatment with medications that affect renal tubular creatinine secretion. Free PSA/Total PSA [Mass fraction] 7.6 g/dL 6.3 - 8.2 g/dL [facility] Work Phone: [phone] GFR/1.73 sq M.predicted among blacks MDRD (S/P/Bld) [Vol rate/Area] mL/min/{1.73_m2} >60 mL/min [facility] Work Phone: [phone] Glucose [Mass/Vol] 106 mg/dL High 70 - 100 mg/dL [facility] Work Phone: [phone] Potassium [Moles/Vol] 4.1 mmol/L 3.5 - 5.1 mmol/L [facility] Work Phone: [phone] Sodium [Moles/Vol] 136 mmol/L 135 - 145 mmol/L [facility] Work Phone: [phone] Urea nitrogen (BldV) [Mass/Vol] 7 mg/dL 7 - 20 mg/dL [facility] Work Phone: [phone] Lipid PanelOrdered By: Lynda Rasheed on 09-01-2020 Cholesterol [Mass/Vol] 285 mg/dL Abnormal <200 [facility] Work Phone: [phone] Cholesterol in HDL [Mass/Vol] 68 mg/dL High 40 - 60 mg/dL [facility] Work Phone: Cholesterol in LDL [Mass/Vol] 193 mg/dL Abnormal <100 [facility] Work Phone: Cholesterol.total/Nicole sterol in HDL [Mass ratio] 4 {ratio} [facility] Work Phone: [phone] Comment on above: Ref Range: < 3 Low Risk for CHD 3-6 Mod Risk for CHD > 6 High Risk for CHD Triglyceride [Mass/Vol] 120 mg/dL <[address] [facility] Work Phone: [phone] No Panel InformationOrdered By: Lynda Rasheed on 09-01-2020 Interpretation and review of laboratory results Abnormal [facility] Work Phone: [phone] Test Performed by [facility], [address] Work Phone: [facility] Work Phone: PSA, Prostatic Specific Anti genOrdered By: Lynda Rasheed on 09-01-2020 Prostatic Specific Ag 0.397 ng/mL <4.000 [facility] Work Phone: Comment on above: Testing performed on the [employer] using an immunometric methodology. Results obtained by different methods should not be used interchangeably. Test Performed by [facility], [address] , [address] Work Phone: [phone] [facility] - [place] Work Phone: [phone] Basic Metabolic Panel w/ Ref santi to MGon 06-10-2020 Anion gap [Moles/Vol] 6 mmol/L 3 - 13 mmol/L [facility] Work Phone: [phone] Calcium [Mass/Vol] 8.3 mg/dL Low 8.4 - 10. 4 mg/dL [facility] Work Phone: Chloride [Moles/Vol] 95 mmol/L Low 98 - 10 7 mmol/L [facility] Work Phone: [phone] CO2 [Moles/Vol] 31 mmol/L High 22 - 30 mmol/L [facility] Work Phone: [phone] Creatinine [Mass/Vol] 0.71 mg/dL 0.52 - 1.25 mg/dL [facility] Work Phone: [phone] EGFR IF NonAfrican Marshallese >90.0 >60 mL/min [facility] Work Phone: [phone] Comment on above: KDIGO guidelines pro vide the following GFR categories: Stage GFR(ml/min/1.73 m2) Terms G1 >=90 Normal or high G2 60-89 Mildly decreased* G3a 45-59 Mildly to moderately decreased G3b 30-44 Moderately to severely decreased G4 15-29 Severely decreased G5 <15 Kidney failure *Relative to young adult level. In the absence of evidence of kidney damage, neither GFR category G1 nor G2 fulfill the criteria for CKD. The CKD-EPI equation is validated in individuals 18 years of age and older. Currently the best equation for estimating glomerular filtration rate (GFR) from serum creatinine in children is the Bedside Francis equation. It is less accurate in patients with extremes of muscle mass, restriction of dietary protein, ingestion of creatine, extra-renal metabolism of creatinine, or treatment with medications that affect renal tubular creatinine secretion. GFR/1.73 sq M predicted among blacks MDRD (S/P/Bld) [Vol rate/Area] mL/min/{1.73_m2} >60 mL/min [facility] Work Phone: Glucose [Mass/Vol] 91 mg/dL 70 - 100 mg/dL [facility] Work Phone: Potassium [Moles/Vol] 3.8 mmol/L 3.5 - 5.1 mmol/L [facility] Work Phone: Sodium [Moles/Vol] 132 mmol/L Low 135 - 145 mmol/L [facility] Work Phone: Urea nitrogen [Mass/Vol] 3 mg/dL Low 7 - 20 mg/dL [facility] Work Phone: CBC auto differentialon 05-30 Absolute Baso # 0.0 10*3/uL 0.0 - 0.2 10*3/uL [employer] Work Phone: [phone] Absolute Neut # 2.1 10*3/uL 1.8 - 7.0 10*3/uL [facility] Work Phone: [phone] Basophils/100 WBC (Bld) 1.5 % 0.0 - 2.0 % [employer] Work Phone: [phone] Eosinophils (Bld) [#/Vol] 0.0 10*3/uL 0.0 - 0.5 10*3/uL [employer] Work Phone: [phone] Eosinophils/100 WBC (Bld) 1.3 % 1.0 - 6.0 % [employer] Work Phone: [phone] Erythrocyte distribution width (RBC) [Ratio] 15.4 % High 11.5 - 14.5 % [employer] Work Phone: [phone] Granulocytes/100 WBC (Bld) 66.1 % 40.0 - 80.0 % [employer] Work Phone: [phone] Hematocrit (Bld) [Volume fraction] 43.4 % 40.0 - 52.0 % [employer] Work Phone: [phone] Hemoglobin (Bld) [Mass/Vol] 14.9 g/dL 13.0 - 18.0 g/dL [employer] Work Phone: [phone] Interpretation and review of laboratory results Abnormal [employer] Work Phone: [phone] Lymphocytes (Bld) [#/Vol] 0.6 10*3/uL Low 1.0 - 4.3 10*3/uL [employer] Work Phone: [phone] Lymphocytes/100 WBC (Bld) 18.3 % Low 20.0 - 40.0 % [employer] Work Phone: [phone] MCH (RBC) [Entitic mass] 35.0 pg High 26.0 - 34.0 pg [facility] Work Phone: [phone] MCHC (RBC) [Mass/Vol] 34.3 % 32.0 - 36.0 % [employer] Work Phone: [phone] MCV (RBC) [Entitic vol] 102.2 fL High 80.0 - 98.0 fL [facility] Work Phone: 1() Monocytes (Bld) [#/Vol] 0.4 10*3/uL 0.0 - 0.8 10*3/uL [facility] Work Phone: 1() Monocytes/100 WBC (Bld) 12.8 % High 2.0 - 10.0 % [facility] Work Phone: 1() Platelet mean volume (Bld) [Entitic vol] 7.2 fL Low 7.4 - 10.4 fL [facility] Work Phone: 1() Platelets (Bld) [#/Vol] 140 10*3/uL 140 - 440 10*3/uL [facility] Work Phone: 1) RBC (Bld) [#/Vol] 4.24 10*6/uL Low 4.40 - 5.90 10*6/uL [facility] Work Phone: 1) WBC (Bld) [#/Vol] 3.1 10*3/uL Low 3.6 - 10.7 10*3/uL [facility] Work Phone: [phone] Test Performed by [address] [address] [employer] Work Phone: [phone] Hepatic function panelon Albumin [Mass/Vol] 3.8 g/dL 3.5 - 5.0 g/dL [employer] Work Phone: ) ALP [Catalytic activity/Vol] 124 U/L 38 - 126 U/L [employer] Work Phone: ) ALT [Catalytic activity/Vol] 229 U/L High 0 - 49 U/L [employer] Work Phone: Comment on above: The ALT test is perf ormed by an updated assay method. Please note that the reference intervals have been changed and are now sex specific. AST [Catalytic activity/Vol] 288 U/L High 15 - 46 U/L [employer] Work Phone: [phone] Bilirubin Ql (U) 0.8 mg/dL 0.2 - 1.3 mg/dL [employer] Work Phone: [phone] Bilirubin.direct [Mass/Vol] 0.0 mg/dL 0.0 - 0.3 mg/dL [facility] Work Phone: [phone] Protein [Mass/Vol] 6.7 g/dL 6.3 - 8.2 g/dL [employer] Work Phone: [phone] Iron and TIBCon 06-10-2020 Iron [Mass/Vol] 114 ug/dL 49 - 181 ug/dL [facility] Work Phone: [phone] Sat 75 % High 15 - 50 % [facility] Work Phone: [phone] TIBC 151 ug/dL Low 261 - 497 ug/dL [facility] Work Phone: [phone] Otheron 06-10-2020 Interpretation and review of laboratory results Abnormal [facility] Work Phone: [phone] Test Performed by [facility], [address] [place] [id number] [place], [place] [address]A Work Phone: [phone] APTTon 06-09-2020 aPTT Coag (Bld) [Time] 26.8 s 20.0 - 30.5 s [facility] Work Phone: [phone] Comment on above: NOTE: The therapeuti c time for Heparin anticoagulation, based on Xa activity inhibition, is an APTT of 46-80 seconds. Comprehensive Metabolic Pane arnulfo 06-09-2020 Albumin [Mass/Vol] 4.4 g/dL 3.5 - 5.0 g/dL [facility] Work Phone: [phone] ALP [Catalytic activity/Vol] 144 U/L High 38 - 126 U/L [facility] Work Phone: [phone] ALT [Catalytic activity/Vol] 260 U/L High 0 - 49 U/L [facility] Work Phone: [phone] Comment on above: The ALT test is perf ormed by an updated assay method. Please note that the reference intervals have been changed and are now sex specific. Anion gap [Moles/Vol] 15 mmol/L High 3 - 13 mmol/L [facility] Work Phone: AST [Catalytic activity/Vol] 335 U/L High 15 - 46 U/L [facility] Work Phone: [phone] Bilirubin Ql (U) 0.7 mg/dL 0.2 - 1.3 mg/dL [facility] Work Phone: [phone] Calcium [Mass/Vol] 9.1 mg/dL 8.4 - 10. 4 mg/dL [facility] Work Phone: [phone] Chloride [Moles/Vol] 99 mmol/L 98 - 10 7 mmol/L [facility] Work Phone: [phone] CO2 [Moles/Vol] 23 mmol/L 22 - 30 mmol/L [facility] Work Phone: [phone] Creatinine [Mass/Vol] 0.7 mg/dL 0.52 - 1.25 mg/dL [facility] Work Phone: [phone] EGFR IF NonAfrican Marshallese >90.0 >60 mL/min [facility] Work Phone: [phone] Comment on above: KDIGO guidelines pro vide the following GFR categories: Stage GFR(ml/min/1.73 m2) Terms G1 >=90 Normal or high G2 60-89 Mildly decreased* G3a 45-59 Mildly to moderately decreased G3b 30-44 Moderately to severely decreased G4 15-29 Severely decreased G5 <15 Kidney failure *Relative to young adult level. In the absence of evidence of kidney damage, neither GFR category G1 nor G2 fulfill the criteria for CKD. The CKD-EPI equation is validated in individuals 18 years of age and older. Currently the best equation for estimating glomerular filtration rate (GFR) from serum creatinine in children is the Bedside Francis equation. It is less accurate in patients with extremes of muscle mass, restriction of dietary protein, ingestion of creatine, extra-renal metabolism of creatinine, or treatment with medications that affect renal tubular creatinine secretion. GFR/1.73 sq M predicted among blacks MDRD (S/P/Bld) [Vol rate/Area] mL/min/{1.73_m2} >60 mL/min [facility] Work Phone: [phone] Glucose [Mass/Vol] 99 mg/dL 70 - 100 mg/dL [facility] Work Phone: [phone] Potassium [Moles/Vol] 4.0 mmol/L 3.5 - 5.1 mmol/L [facility] Work Phone: Protein [Mass/Vol] 7.0 g/dL 6.3 - 8.2 g/dL [facility] Work Phone: Sodium [Moles/Vol] 137 mmol/L 135 - 145 mmol/L [facility] Work Phone: Urea nitrogen [Mass/Vol] 4 mg/dL Low 7 - 20 mg/dL [facility] Work Phone: EKG 12 Lead - Chest Painon 0 06-09-2020 Jonny, [facility] Incoming Cardiology Results From [facility] - 06/09/2020 10:32 AM EST [facility] Test Date: 2020-06-09 Pat Name: [facility] Department: ED Room: 04 Gender: M Casing Mixer: 630 : 1965 Requested By: ANTONIO MAURO Order Number: [id number] Reading MD: Paulette Reyes Measurements Intervals [place] Rate: 115 P: 77 VA: 160 QRS: 85 QRSD: 86 T: 44 QT: 332 QTc: 460 Interpretive Statements SINUS TACHYCARDIA PROBABLE LEFT ATRIAL ABNORMALITY BORDERLINE LOW VOLTAGE IN FRONTAL LEADS NONSPECIFIC T ABNORMALITIES, ANTERIOR LEADS Compared to ECG 10/03/2016 16:40:36 T-wave abnormality now present Sinus rhythm no longer present Electronically Signed On 06-09-2020 10:31:12 EST by Paulette Reyes [facility] Work Phone: [facility] Test Date: 2020-06-09 Pat Name: [facility] Department: ED Room: 04 Gender: M Casing Mixer: 630 : 1965 Requested By: ANTONIO MAURO Order Number: [id number] Reading : Paulette Reyes Measurements Intervals [place] Rate: 115 P: 77 VA: 160 QRS: 85 QRSD: 86 T: 44 QT: 332 QTc: 460 Interpretive Statements SINUS TACHYCARDIA PROBABLE LEFT ATRIAL ABNORMALITY BORDERLINE LOW VOLTAGE IN FRONTAL LEADS NONSPECIFIC T ABNORMALITIES, ANTERIOR LEADS Compared to ECG 10/03/2016 16:40:36 T-wave abnormality now present Sinus rhythm no longer present Electronically Signed On 06-09-2020 10:31:12 EST by Paulette Reyes [employer] Work Phone: [phone] Ethanolon 06-09-2020 Ethanol Lvl 0.225 g/dL High 0.000 - 0.010 g/dL [employer] Work Phone: [phone] Comment on above: NOTE: This result is for medical treatment only. Analysis performed using non-forensic procedures. FOLATEon 06-09-2020 Folate 9.4 ng/mL 2.8 - 20.0 ng/mL [employer] Work Phone: [phone] Hemogram (CBC) w/Auto Diffon 06-09-2020 Absolute Baso # 0.0 10*3/uL 0.0 - 0.2 10*3/uL [employer] Work Phone: [phone] Absolute Neut # 1.2 10*3/uL Low 1.8 - 7.0 10*3/uL [employer] Work Phone: [phone] Basophils/100 WBC (Bld) 1.0 % 0.0 - 2.0 % [employer] Work Phone: [phone] Eosinophils (Bld) [#/Vol] 0.0 10*3/uL 0.0 - 0.5 10*3/uL [employer] Work Phone: [phone] Eosinophils/100 WBC (Bld) 1.3 % 1.0 - 6.0 % [employer] Work Phone: [phone] Erythrocyte distribution width (RBC) [Ratio] 15.5 % High 11.5 - 14.5 % [employer] Work Phone: [phone] Granulocytes/100 WBC (Bld) 42.8 % 40.0 - 80.0 % [employer] Work Phone: [phone] Hematocrit (Bld) [Volume fraction] 48.0 % 40.0 - 52.0 % [employer] Work Phone: [phone] Hemoglobin (Bld) [Mass/Vol] 16.4 g/dL 13.0 - 18.0 g/dL [employer] Work Phone: [phone] Interpretation and review of laboratory results Abnormal [employer] Work Phone: [phone] Lymphocytes (Bld) [#/Vol] 1.0 10*3/uL 1.0 - 4.3 10*3/uL [facility] Work Phone: [phone] Lymphocytes/100 WBC (Bld) 34.0 % 20.0 - 40.0 % [facility] Work Phone: [phone] MCH (RBC) [Entitic mass] 34.6 pg High 26.0 - 34.0 pg [facility] Work Phone: [phone] MCHC (RBC) [Mass/Vol] 34.1 % 32.0 - 36.0 % [facility] Work Phone: [phone] MCV (RBC) [Entitic vol] 101.4 fL High 80.0 - 98.0 fL [facility] Work Phone: [phone] Monocytes (Bld) [#/Vol] 0.6 10*3/uL 0.0 - 0.8 10*3/uL [facility] Work Phone: [phone]() 222 Monocytes/100 WBC (Bld) 20.9 % High 2.0 - 10.0 % [facility] Work Phone: [phone]() 222 Platelet mean volume (Bld) [Entitic vol] 6.7 fL Low 7.4 - 10.4 fL [facility] Work Phone: [phone] Platelets (Bld) [#/Vol] 204 10*3/uL 140 - 440 10*3/uL [facility] Work Phone: [phone] 222 RBC (Bld) [#/Vol] 4.74 10*6/uL 4.40 - 5.90 10*6/uL [facility] Work Phone: [phone] WBC (Bld) [#/Vol] 2.9 10*3/uL Low 3.6 - 10.7 10*3/uL [facility] Work Phone: [phone] Test Performed by [facility], [facility] [address] , [place], [place] [address] [facility] Work Phone: [phone] Lactic Acid, Plasmaon 2020 Interpretation and review of laboratory results Abnormal [employer] Work Phone: [phone] Lactate [Moles/Vol] 2.9 mmol/L Critically high 0.7 - 2.0 mmol/L [facility] Work Phone: Test Performed by [facility], [address] , [place] [address] [facility] Work Phone: Lipaseon 06-09-2020 Lipase [Catalytic activity/Vol] 206 U/L 23 - 300 U/L [facility] Work Phone: [phone] Otheron 06-09-2020 Test Performed by [facility], [address], [place], [place] [address] [facility] Work Phone: [phone] Test Performed by [facility], [address], [place], [place] [address] [facility] Work Phone: [phone] Interpretation and review of laboratory results Abnormal [facility] Work Phone: [phone] Test Performed by [facility], [address] , [place] [address] [facility] Work Phone: Protime-INRon 06-09-2020 INR Coag (PPP) [Relative time] 1.0 {INR} [facility] Work Phone: Comment on above: Recommended Anticoag ulant Therapy: SEE BELOW ----- INR of 2.0 - 3.0 : - Prophylaxis of Venous Thrombosis (high-risk surgery) - Treatment of Venous Thrombosis - Treatment of Pulmonary Embolism (Includes tissue heart valves, Acute Myocardial Infarction to prevent systemic embolism, Valvular Heart Disease, and Atrial Fibrillation) ----- INR of 2.5 - 3.5 : - Mechanical Prosthetic Valves (high risk) - If oral anticoagulant therapy is used to prevent Myocardial Infarction PT Coag (PPP) [Time] 10.6 s 9.0 - 1 2.0 s [facility] Work Phone: Comment on above: . Vitamin B12on 06-09-2020 Cobalamin (Vitamin B12) [Mass/Vol] 830 pg/mL 239 - 931 pg/mL [facility] Work Phone: XR CHEST PORTABLEon 06-10-19 21 Jonny, [facility] Incoming Radiology Results From [facility] - 06/09/2020 9:11 AM EST Patient Name: MARIA DE JESUS HOGAN Diagnostic Radiology ACCESSION EXAM DATE/TIME PROCEDURE ORDERING PROVIDER [id number] 06/09/2020 09:07 EST CR Chest Portable MD [place], ANTONIO CPT code 03870 Reason For Exam (CR Chest Portable) vomiting Report Portable chest 06/09/2020: Clinical Information: Vomiting. Findings: A single AP portable view of the chest was obtained at 902 hours. Comparison was made to the prior study 08/13/2018. The trachea is midline. The heart is not enlarged. No focal areas of consolidation or volume loss are seen. There are no pleural effusions. The pulmonary vasculature does not appear congested. The visualized bony structures are intact. Impression: No acute process. Report Dictated on --- Final --- Dictating Physician: MD NASSAR RISA Signed Date and Time: 06/09/2020 9:10 am Signed by: MD NASSAR RISA Transcribed Date and Time: 06/09/2020 9:11 [facility] Work Phone: Patient Name: MARIA DE JESUS SÁNCHEZ Diagnostic Radiology ACCESSION EXAM DATE/TIME PROCEDURE ORDERING PROVIDER [id number] 06/09/2020 09:07 EST CR Chest Portable MD [place], ANTONIO CPT code 40165 Reason For Exam (CR Chest Portable) vomiting Report Portable chest 06/09/2020: Clinical Information: Vomiting. Findings: A single AP portable view of the chest was obtained at 902 hours. Comparison was made to the prior study 08/13/2018. The trachea is midline. The heart is not enlarged. No focal areas of consolidation or volume loss are seen. There are no pleural effusions. The pulmonary vasculature does not appear congested. The visualized bony structures are intact. Impression: No acute process. Report Dictated on --- Final --- Dictating Physician: MD NASSAR RISA Signed Date and Time: 06/09/2020 9:10 am Signed by: MD NASSAR RISA Transcribed Date and Time: 06/09/2020 9:11 [facility] Work Phone: Hematologyon 08-31-2019 Basophils/100 WBC (Bld) 0.7 % 0 - 2 % [place] Eosinophils (Bld) [#/Vol] 0.0 10*3/uL 0 - 0.5 10*3/uL [place] Eosinophils/100 WBC (Bld) 0.6 % Low 1 - 6 % [place] Hematocrit (Bld) [Volume fraction] 50.3 % 40 - 52 % [place] Hemoglobin (Bld) [Mass/Vol] 17.2 g/dL 13 - 18 g/dL [place] Lymphocytes (Bld) [#/Vol] 2.2 10*3/uL 1 - 4.3 10*3/uL [place] Lymphocytes/100 WBC (Bld) 34.6 % 20 - 40 % [place] MCH (RBC) [Entitic mass] 34.9 pg High 26 - 34 pg [place] MCV (RBC) [Entitic vol] 102.2 fL High 80 - 98 fL [place], [place] Monocytes (Bld) [#/Vol] 0.5 10*3/uL 0 - 0.8 10*3/uL [place] Monocytes/100 WBC (Bld) 7.5 % 2 - 10 % [place] Platelets (Bld) [#/Vol] 330 10*3/uL 140 - 440 10*3/uL [place] RBC (Bld) [#/Vol] 4.92 10*6/uL 4.4 - 5.9 10*6/uL [place] WBC (Bld) [#/Vol] 6.5 10*3/uL 3.6 - 10.7 10*3/uL [place] Metabolic Panelon 08-31-2019 Albumin [Mass/Vol] 4.8 g/dL 3.5 - 5 g/dL [place] ALP [Catalytic activity/Vol] 171 U/L High 38 - 126 U/L [place] ALT [Catalytic activity/Vol] 98 U/L High 0 - 49 U/L [place] Comment on above: The ALT test is perf ormed by an updated assay method. Please note that the reference intervals have been changed and are now sex specific. Anion gap [Moles/Vol] 17 mmol/L [place], [place] AST [Catalytic activity/Vol] 107 U/L High 15 - 46 U/L [place] Calcium [Mass/Vol] 8.8 mg/dL 8.4 - 10. 4 mg/dL [place] Chloride [Moles/Vol] 98 mmol/L 98 - 10 7 mmol/L [place] CO2 [Moles/Vol] 22 mmol/L 22 - 30 mmol/L [place] Creatinine [Mass/Vol] 0.68 mg/dL 0.52 - 1.25 mg/dL [place] GFR/1.73 sq M predicted among blacks MDRD (S/P/Bld) [Vol rate/Area] mL/min/{1.73_m2} >60 mL/min [place] Glucose [Mass/Vol] 90 mg/dL 70 - 100 mg/dL [place] Potassium [Moles/Vol] 4.5 mmol/L 3.5 - 5.1 mmol/L [place] Protein [Mass/Vol] 8.1 g/dL 6.3 - 8.2 g/dL [place] Sodium [Moles/Vol] 136 mmol/L 135 - 145 mmol/L [place] Urea nitrogen [Mass/Vol] 6 mg/dL Low 7 - 20 mg/dL [place] Otheron 08-31-2019 Amphetamines, urine Negative [place] Barbiturates, Ur Negative [place] Benzodiazepine Ur Qual Negative [place] Cocaine Metabolites, Ur Negative [place] Methadone, Urine Negative [place] Opiates, Urine Negative [place] Oxycodone Screen, Ur Negative [place] PCP, Urine Negative [place] Comment on above: The expected value f or all of the drugs listed above is Negative. The following drugs or drug groups have been screened for by Immunoassay at the following thresholds: Amphetamine class (1000 ng/mL), Barbiturates (200 ng/mL), Benzodiazepines (200 ng/mL), Cocaine (300 ng/mL), Methadone (300 ng/mL), Opiates (300 ng/mL), Oxycodone (100 ng/mL), and PCP (25 ng/mL). NOTE: These results are for medical treatment only. Analysis performed using non-forensic procedures. POSITIVE results are NOT confirmed by a more specific alternative method unless requested. If confirmation is needed, request confirmation under separate order. Test Performed by [facility], [facility] [place] [address] [place] Bilirubin Ql (U) 0.7 mg/dL 0.2 - 1.3 mg/dL [place] EGFR IF NonAfrican [place]ese >90.0 >60 mL/min [place] Comment on above: KDIGO guidelines pro vide the following GFR categories: Stage GFR(ml/min/1.73 m2) Terms G1 >=90 Normal or high G2 60-89 Mildly decreased* G3a 45-59 Mildly to moderately decreased G3b 30-44 Moderately to severely decreased G4 15-29 Severely decreased G5 <15 Kidney failure *Relative to young adult level. In the absence of evidence of kidney damage, neither GFR category G1 nor G2 fulfill the criteria for CKD. The CKD-EPI equation is validated in individuals 18 years of age and older. Currently the best equation for estimating glomerular filtration rate (GFR) from serum creatinine in children is the Bedside Francis equation. It is less accurate in patients with extremes of muscle mass, restriction of dietary protein, ingestion of creatine, extra-renal metabolism of creatinine, or treatment with medications that affect renal tubular creatinine secretion. Ethanol Lvl 0.284 g/dL High 0 - 0.01 g/dL [place] Comment on above: NOTE: This result is for medical treatment only. Analysis performed using non-forensic procedures. Interpretation and review of laboratory results Abnormal [place] Lipase [Catalytic activity/Vol] 140 U/L 23 - 300 U/L [place] Test Performed by [facility], [facility] [place] [address] [place] Absolute Baso # 0.0 10*3/uL 0 - 0.2 10*3/uL [place] Absolute Neut # 3.7 10*3/uL 1.8 - 7 10*3/uL [place] Erythrocyte distribution width (RBC) [Ratio] 15.1 % High 11.5 - 14.5 % [place] Granulocytes/100 WBC (Bld) 56.6 % 40 - 80 % [place] Interpretation and review of laboratory results Abnormal [place] MCHC (RBC) [Mass/Vol] 34.2 % 32 - 36 % [place], [place] Platelet mean volume (Bld) [Entitic vol] 6.6 fL Low 7.4 - 10.4 fL [place] Test Performed by [facility], [address] [place] [address] [place] CBC Auto Differentialon 01-30 Absolute Baso # 0.0 10*3/uL 0 - 0.2 10*3/uL [place] Absolute Neut # 4.8 10*3/uL 1.8 - 7 10*3/uL [place] Basophils/100 WBC (Bld) 0.5 % 0 - 2 % [place] Eosinophils (Bld) [#/Vol] 0.1 10*3/uL 0 - 0.5 10*3/uL [place] Eosinophils/100 WBC (Bld) 1.6 % 1 - 6 % [place] Erythrocyte distribution width (RBC) [Ratio] 13.6 % 11.5 - 14.5 % [place] Granulocytes/100 WBC (Bld) 65.8 % 40 - 80 % [place] Hematocrit (Bld) [Volume fraction] 46.7 % 40 - 52 % [place] Hemoglobin (Bld) [Mass/Vol] 16.2 g/dL 13 - 18 g/dL [place] Interpretation and review of laboratory results Abnormal [place] Lymphocytes (Bld) [#/Vol] 1.7 10*3/uL 1 - 4.3 10*3/uL [place] Lymphocytes/100 WBC (Bld) 24.0 % 20 - 40 % [place] MCH (RBC) [Entitic mass] 32.0 pg 26 - 34 pg [place] MCHC (RBC) [Mass/Vol] 34.7 % 32 - 36 % [place] MCV (RBC) [Entitic vol] 92.4 fL 80 - 98 fL [place] Monocytes (Bld) [#/Vol] 0.6 10*3/uL 0 - 0.8 10*3/uL [place] Monocytes/100 WBC (Bld) 8.1 % 2 - 10 % [place] Platelet mean volume (Bld) [Entitic vol] 6.4 fL Low 7.4 - 10.4 fL [place] Platelets (Bld) [#/Vol] 419 10*3/uL 140 - 440 10*3/uL [place] RBC (Bld) [#/Vol] 5.06 10*6/uL 4.4 - 5.9 10*6/uL [place] WBC (Bld) [#/Vol] 7.3 10*3/uL 3.6 - 10.7 10*3/uL [place] Test Performed by [facility], [address] [place] [address] Rd. , [place], [place] [id number] [place] [address] Comprehensive Metabolic Pane arnulfo 02-14-2019 Albumin [Mass/Vol] 4.2 g/dL 3.5 - 5 g/dL [place] ALP [Catalytic activity/Vol] 107 U/L 38 - 126 U/L [place] ALT [Catalytic activity/Vol] 41 U/L 13 - 69 U/L [place] Anion gap [Moles/Vol] 9 mmol/L [place] AST [Catalytic activity/Vol] 20 U/L 15 - 46 U/L [place] Bilirubin Ql (U) 0.4 mg/dL 0.2 - 1.3 mg/dL [place] Calcium [Mass/Vol] 9.9 mg/dL 8.4 - 10. 4 mg/dL [place] Chloride [Moles/Vol] 101 mmol/L 98 - 10 7 mmol/L [place] CO2 [Moles/Vol] 28 mmol/L 22 - 30 mmol/L [place] Creatinine [Mass/Vol] 0.82 mg/dL 0.52 - 1.25 mg/dL [place] EGFR IF NonAfrican [place]ese >60.0 >60 mL/min [place] Comment on above: Source- MDRD equatio n with creatinine calibration to IDMS(NKDEP) eGFR not recommended for drug dose adjustment GFR/1.73 sq M predicted among blacks MDRD (S/P/Bld) [Vol rate/Area] mL/min/{1.73_m2} >60 mL/min [place] Glucose [Mass/Vol] 89 mg/dL 70 - 100 mg/dL [place] Potassium [Moles/Vol] 4.6 mmol/L 3.5 - 5.1 mmol/L [place] Protein [Mass/Vol] 6.9 g/dL 6.3 - 8.2 g/dL [place] Sodium [Moles/Vol] 138 mmol/L 135 - 145 mmol/L [place] Urea nitrogen [Mass/Vol] 9 mg/dL 7 - 20 mg/dL [place] Lipid Panelon 02-14-2019 Cholesterol [Mass/Vol] 262 mg/dL Abnormal <200 [place] Cholesterol in HDL [Mass/Vol] 43 mg/dL 40 - 60 mg/dL [place] Cholesterol in LDL [Mass/Vol] 187 mg/dL Abnormal <100 [place] Cholesterol.total/Nicole sterol in HDL [Mass ratio] 6 {ratio} [place] Comment on above: Ref Range: < 3 Low Risk for CHD 3-6 Mod Risk for CHD > 6 High Risk for CHD Interpretation and review of laboratory results Abnormal [place] Triglyceride [Mass/Vol] 162 mg/dL Abnormal <150 [place] Otheron 02-14-2019 Test Performed by [facility], [address] , [address], [place] CBC and Differentialon 02-14 Abs Baso <0.03 Normal <0.11 [facility] Comment on above: Performed By: #### C BCDIF, CMP ####[facility] [address] [place] [address] Abs T[place] 0.89 k/uL High <0.87 [facility] Comment on above: Performed By: #### C BCDIF, CMP ####[facility] [address] [place] [address] Abs Neut 2.94 k/uL Normal 1.45-7.50 [facility] [facility] Comment on above: Performed By: #### C BCDIF, CMP ####[place] [address] Basophils/100 WBC (Bld) 0.3 % Normal [facility] Comment on above: Performed By: #### C BCDIF, CMP ####[place] [address] Eosinophils (Bld) [#/Vol] 0.16 10*3/uL Normal <0.46 [facility] Comment on above: Performed By: #### C BCDIF, CMP ####[place] [address] Eosinophils/100 WBC (Bld) 2.6 % Normal [facility] Comment on above: Performed By: #### C BCDIF, CMP ####[facility] [address] [place] [address] Erythrocyte distribution width (RBC) [Ratio] 13.5 % Normal 11.5-15.0 [facility] Comment on above: Performed By: #### C BCDIF, CMP ####[place] [address] Hematocrit (Bld) [Volume fraction] 40.5 % Normal 39.0-51.0 [facility] Comment on above: Performed By: #### C BCDIF, CMP ####[facility] [address] [place] [address] Hemoglobin (Bld) [Mass/Vol] 13.1 g/dL Normal 13.0-17.0 [facility] Comment on above: Performed By: #### C BCDIF, CMP ####[facility] [address] [place] [address] Lymphocytes (Bld) [#/Vol] 2.09 10*3/uL Normal 1.00-4.00 [facility] Comment on above: Performed By: #### C BCDIF, CMP ####[facility] [address] [place], [place] [phone] Lymphocytes/100 WBC (Bld) 34.3 % Normal [facility] Comment on above: Performed By: #### C BCDIF, CMP ####[place] [phone] MCH (RBC) [Entitic mass] 30.0 pG Normal 26.0-34.0 [facility] Comment on above: Performed By: #### C BCDIF, CMP ####[facility] [address] [place], [place] [phone] MCHC (RBC) [Mass/Vol] 32.3 g/dL Normal 30.5-36.0 [facility] Comment on above: Performed By: #### C BCDIF, CMP ####[place] [id number] MCV (RBC) [Entitic vol] 92.9 fL Normal 80.0-100.0 [facility] Comment on above: Performed By: #### C BCDIF, CMP ####[facility] [address] [place], [place] [phone] Monocytes/100 WBC (Bld) 14.6 % Normal [facility] Comment on above: Performed By: #### C BCDIF, CMP ####[address] Neutrophils/100 WBC (Bld) 48.2 % Normal [facility] Comment on above: Performed By: #### C BCDIF, CMP ####[place] [address] Platelet mean volume (Bld) [Entitic vol] 9.1 fL Normal 9.0-12.7 [facility] Comment on above: Performed By: #### C BCDIF, CMP ####[facility] [address] [place] [phone] Platelets (Bld) [#/Vol] 296 10*3/uL Normal 150-400 [facility] Comment on above: Performed By: #### C BCDIF, CMP ####[facility] [address] [place] [phone] RBC (Bld) [#/Vol] 4.36 10*6/uL Normal 4.20-6.00 [facility] Comment on above: Performed By: #### C BCDIF, CMP ####[facility] K[address]bv5054 [phone] WBC (Bld) [#/Vol] 6.10 10*3/uL Normal 3.70-11.00 [facility] Comment on above: Performed By: #### C BCDIF, CMP ####[facility] [address] [place] [phone] CNCOon 02-14-2018 [facility] Letter Text February 14, 2018 Maria De Jesus Farr Samira [address] [facility] [address] Dear Mr. Hogan, The nurses and staff of [facility] hope this letter finds you feeling well and progressing in your recovery. Our staff would like to thank you for trusting and choosing us for your health care needs. It was an honor for us to provide your nursing care. We know that placing our Patients First and maintaining a culture of continuous improvement each and every day, are essential to the success of our organization. I hope your stay with us has been positive. We want to hear from you. If you have any comments, questions or concerns about your hospital stay, please feel free to contact me, Geneva Farooq RN ([phone]) or email me at, Additionally, you will receive a survey in the mail asking you to rate the care you received while in the hospital. Please take the time to complete and send back the survey, as it is essential to our continued success. I personally review all the results and would appreciate your feedback. Thank you in advance for your participation and thank you for choosing the [facility] for your health needs. Sincerely, Nurse Pan Washer Hand: Geneva Farooq RN ([phone]) [facility] Unit: 2 North Letter Text February 14, 2018 [facility] Medicine [address] [facility]/[place] [id number] Regarding: Maria De Jesus Hogan (: 1965) Dear Dr. Rasheed: A patient of your practice, Maria De Jesus Hogan, was admitted on 02/13/2018 to [facility] under the services of the Department of Hospital Medicine, and is currently under the care of Dr. Arredondo. We look forward to collaborating with you regarding his care. If you have any questions or concerns, please call us in the Department of Hospital Medicine at [facility], at [phone]. Best Regards, Larry Burnett [facility] Letter Text February 14, 2018 [facility] Medicine [address] [facility]/[place] [id number] Re: Maria De Jesus Farr Samira Dear Dr. Rasheed: A patient of your practice, Maria De Jesus Hogan (: 1965) was treated at [facility] under the care of the [facility] Department of Hospital Medicine, and discharged on 02/14/2018. A transcribed discharge summary should be forthcoming promptly. If you need additional information or assistance, you may contact the Department of Hospital Medicine at [phone] during regular business hours, and we?ll be happy to assist you. Best Regards, Larry Lex [facility] Normal [facility] CNDSon 02-14-2018 [facility] HNO ID: [id number] Author: Uriel Arredondo MD Service: Hospital Medicine Author Type: Physician Type: Discharge Summaries Filed: 02/14/2018 11:01 AM Note Text: Attending Note I have personally performed a face to face assessment of the patient and have reviewed the PA/CERTIFIED DIABETES EDUCATOR note. 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 Exam is inconsistent with no Babinski and alterations in his facial weakness with noxious stimuli prior similar episodes Assessment/Plan are reviewed with neurology and this seems to be conversion type reaction as the patient been scheduled for discharge from the penitentiary but was not released because of his noncompliance he did not get the early release on the day prior to admission and was going to have to spend another month to penitentiary. Evaluation with EEG MR I and CTA and neurology found no abnormalities and his exam was inconsistent in is giving away with weakness and on the neurologist examination also. Giving the patient the benefit of the doubt that he is not malingering this would be a conversion disorder and if it persists he can follow-up with [facility] but he seemed to be much better after being told that was acceptable that this was conversion and that he wasn't conscious of what was going on. Other additions or changes: None Signature: Uriel Arredondo MD Date: 02/14/2018 Time: 10:59 AM DISCHARGE SUMMARY PATIENT NAME: Maria De Jesus Hogan Code Status: Not on file Highest Readmission Risk Score: 6 The 30 day readmissions risk score is derived from an internally validated risk model which evaluates patient level characteristics, utilization history, medication orders and lab results up until the day of discharge. Patients with a score of 40 or above are considered highest risk for readmission. Specific patient level drivers will be listed at the bottom of the summary. Admission Information Admission Information ADMIT DATE: 02/13/2018 DISCHARGE DATE: 02/14/2018 MY DOCTORS AND MEDICAL TEAM: My Main Hospital Doctor: Uriel Arredondo MD Primary Care Provider: Lynda Rasheed MD My Medical Team Members: Treatment Team: Attending Provider: Uriel Arredondo MD Consulting: Lyric Delgado MY CONDITION AT DISCHARGE: Stable REASON I WAS IN THE HOSPITAL: left sided weakness SUMMARY OF WHAT HAPPENED WHILE I WAS IN THE HOSPITAL: You were admitted for left sided weakness after being found on floor of your penitentiary cell. You were evaluated in the ER and admitted for possible stroke. You had a CT of your brain and MRI of your brain which did not show any signs of ischemia or bleeding that would indicate a stroke. Neither scans shows any damage that would indicate an old stroke. An MRI of your neck shows no significant abnormalities that would cause the symptoms your are experiencing. Neurology was consulted and saw you during your stay. An EEG was performed which does not show any deficits. Both neurology and hospital medicine feel that your symptoms may be stress induced. Your vital signs and heart rate have been stable. You labs do no suggest any underlying disease process. You will not need any new medications on discharge. You can return to penitentiary without any restrictions. You should follow up with your PCP in 1 month for post hospital visit. If you continue to have these symptoms you should follow up with [facility] for counseling. OTHER PROBLEMS/DIAGNOSIS: Active Problems: Conversion reaction Weakness of extremity History of TIA (transient ischemic attack) and stroke BPH (benign prostatic hyperplasia) Resolved Problems: * No resolved hospital problems. * OPERATIONS PERFORMED WHILE IN THE HOSPITAL: None IMPORTANT TEST/PROCEDURES: No procedures performed TEST RESULTS NOT AVAILABLE AT THIS TIME: No pending results Discharge Disposition Fdc Activity When You Leave the Hospital Resume pre-hospital activity Diet Instructions Resume your pre-hospital diet Call Your Doctor If You have a severe headache You have lightheadedness, fainting, or confusion You have persistent nausea/vomiting over 24 hours You have persistent or heavy bleeding You have swollen glands or cold and clammy skin Your temperature is greater than 101F Follow Up Appointments Follow-Up Appointment When: In 4 weeks Patient/Parents to call for appointment?: Yes Lynda Waitekana [phone] [place] [address] [address] [facility] [address] PCP Requested Referral Additional Provider to Provider Information: Patient admitted for left sided weakness after being found on floor of penitentiary cell. Has reported history of stroke abut 10 years ago. No history of seizures. He is currently incarcerated and had 30 days added to sentence the day prior to development of symptoms. Per supervising officer patient has had multiple visits to ER for similar complaint. CT of brain and CTA of neck performed in ER and did not show any acute results. MRI of brain did not show any new or remote infarcts. MRI of neck shows no significant abnormalities that would explain his symptoms. An EEG was performed which does not show any deficits. Symptoms may be stress induced. Hemodynamically stable and afebrile during stay. Labs do no suggest any underlying disease process. No new medications on discharge. Return to penitentiary without any restrictions. Assessment AND Plan, all Hosp Problems Active Hospital Problems as of 02/14/2018 Noted - Resolved Hospital Conversion reaction 02/13/2018 - Present Current Assessment AND Plan Assessment: Had unspecified type of stoke about 10 years ago with minor residual left sided weakness since event. Patient having increased left sided weakness today with right sided headache. Found on floor of penitentiary cell this morning. Neuro consulted in ED. Patient is not appropriate for TPA. CT of head and CT negative for acute intracranial process. Report from officer bedside states that patient has been seen several times at other facilities for similar complaint over the last several month during current incarceration. Neurology consulted. MRI of brain and neck show no physiological abnormalities. EEG shows normal wave form. PLAN: -Return to penitentiary -Follow up with PCP in 1 month -Follow up with [facility] with continued symptoms. Weakness of extremity 02/13/2018 - Present Current Assessment AND Plan Assessment: Had unspecified type of stoke about 10 years ago with minor residual left sided weakness since event. Patient having increased left sided weakness today with right sided headache. Found on floor of penitentiary cell this morning. Neuro consulted in ED. Patient is not appropriate for TPA. CT of head and CT negative for acute intracranial process. Report from officer bedside states that patient has been seen several times at other facilities for similar complaint over the last several month during current incarceration. PLAN: -Discharge to penitentiary History of TIA (transient ischemic attack) and stroke 02/13/2018 - Present Current Assessment AND Plan Assessment: Had unspecified type of stoke about 10 years ago with minor residual left sided weakness since event. Patient having increased left sided weakness today with right sided headache. Found on floor of penitentiary cell this morning. Neuro consulted in ED. Patient is not appropriate for TPA. CT of head and CT negative for acute intracranial process. Report from officer bedside states that patient has been seen several times at other facilities for similar complaint over the last several month during current incarceration. MRI shows no acute or remote areas of infarct. PLAN: -Return to penitentiary -Follow up with PCP in 1 month -Follow up with [facility] for counseling if symptom persist. BPH (benign prostatic hyperplasia) 02/13/2018 - Present Current Assessment AND Plan Assessment: Currently controlled PLAN: -Continue flomax Resolved Hospital Problems as of 02/14/2018 None LABS AND PROCEDURES PENDING AT DISCHARGE: None FOLLOW-UP APPOINTMENTS ALREADY SCHEDULED WITH A [facility] PROVIDER: No future appointments. ALLERGIES No Known Allergies DISCHARGE MEDICATION: Current Discharge Medication List CONTINUE these medications which have NOT CHANGED tamsulosin ER (FLOMAX) 0.4 mg Take 0.4 mg by mouth. STOP taking these medications aspirin 81 mg Comments: Reason for Stopping: Discharge Physical Exam: VITAL SIGNS: BP 141/87 Pulse (!) 58 Temp 36.3 ?C (97.3 ?F) (Oral) Resp 18 Wt 86.7 kg (191 lb 1.6 oz) SpO2 97% GENERAL: Alert, no distress, cooperative SKIN: Negative findings: Color normal, Vascularity normal, No evidence of bleeding or bruising, No lesions noted, No edema, Temperature normal, Texture normal, Mobility and turgor normal, Nails normal without clubbing HEAD/SINUSES: No significant findings LUNGS: Negative findings: normal respiratory rate and rhythm, chest symmetric with normal A/P diameter, no chest wall tenderness, diaphragmatic excursion normal and lungs clear to auscultation CARDIAC: rate and rhythm regular; no rubs, murmurs, or gallops ABDOMEN: Abdomen soft, non-tender, BS normal, No masses or organomegaly EXTREMITIES: Positive findings: muscle strength 5x5 right sided, 3x5 left side upper and lower extremity NEURO: Positive findings: muscular weakness left sided, hand and lower extremity. Normal plantar reflex bilaterally. Facial features symmetrical. PULSES: 2+ radial, 2+ dorsalis pedis, 2+ carotid The patient's risk for 30-day readmission is determined using the following contributing factors: Pt variables contributing to increased readmission risk: 12 Most Recent BUN Result 9.6 First Resulted Calcium During Admission 7 Active Medication Orders 1 Previous ED Visit (6 mos.)? 1 Number of Previous ED Visits (6 mos.) 1 Insurance - Self Pay 1 Discharge Disposition - Home TIME OF CARE: Discharge Management: I personally spent greater than 30 minutes involved in the discharge management of this patient. SIGNATURE: Nilay Baker APRN.CNP PAGER/CONTACT #: DATE: February 14, 2018 TIME: 9:28 AM Normal [facility] Comp Metabolic Panelon 02-14 Albumin [Mass/Vol] 3.9 g/dL Normal 3.9-4.9 [facility] Comment on above: Performed By: #### C BCJUSTOF CMP ####[facility] [address] [place] [phone] ALP [Catalytic activity/Vol] 85 U/L Normal 38-113 [facility] Comment on above: Performed By: #### C MEHULF CMP ####[facility] [address] [place] [phone] ALT [Catalytic activity/Vol] 14 U/L Normal 10-54 [facility] Comment on above: Performed By: #### C BCSADAF CMP ####[facility] [address] [place] [address] Anion gap [Moles/Vol] 9 mmol/L Normal 9-18 [facility] Comment on above: Performed By: #### C BCDIF, CMP ####[facility] [address] [place] [address] AST [Catalytic activity/Vol] 14 U/L Normal 14-40 [facility] Comment on above: Performed By: #### C BCDIF, CMP ####[facility] [address] [place] [address] Bilirubin [Mass/Vol] 0.4 mg/dL Normal 0.2-1.3 [facility] Comment on above: Performed By: #### C BCDIF, CMP ####[facility] [address] [place] [address] Calcium [Mass/Vol] 9.0 mg/dL Normal 8.5-10.2 [facility] Comment on above: Performed By: #### C BCDIF, CMP ####[facility] [address] [place] [address] Chloride [Moles/Vol] 103 mmol/L Normal 97-105 [facility] Comment on above: Performed By: #### C BCDIF, CMP ####[facility] [address] [place] [address] CO2 [Moles/Vol] 30 mmol/L Normal 22-30 [facility] Comment on above: Performed By: #### C BCDIF, CMP ####[facility] [address] [place] [address] Creatinine [Mass/Vol] 0.81 mg/dL Normal 0.73-1.22 [facility] Comment on above: Performed By: #### C BCDIF, CMP ####[facility] [address] [place] [address] eGFR- Amer. >60 Normal [facility] Comment on above: Performed By: #### C BCDIF, CMP ####[facility] [address] [place], [place] [phone] GFR/1.73 sq M predicted among non-blacks MDRD (S/P/Bld) [Vol rate/Area] mL/min/{1.73_m2} Normal [facility] Comment on above: Result Comment: eGFR (Estimated GFR) Units of measure: mL/min/1.73 meters squared eGFR is derived from the reexpressed MDRD Study equation using the following parameters: serum creatinine, age, gender and race. The creatinine assay has been calibrated to be traceable to IDMS. An eGFR <60 mL/min/1.73m2 for >3 months is consistent with chronic kidney disease. Refer to KDOQI guidelines for clinical interpretation. In patients with unstable renal function, e.g. those with acute kidney injury, the eGFR may not accurately reflect actual GFR. Performed By: #### C BCJUSTOF, CMP ####[facility] [phone] Glucose [Mass/Vol] 81 mg/dL Normal 74-99 [facility] Comment on above: Result Comment: The [place] Diabetes Association (ADA) provides guidance for cutoff values for fasting glucose and random glucose. The ADA defines fasting as no caloric intake for at least 8 hours. Fasting plasma glucose results between 100 to 125 mg/dL indicate increased risk for diabetes (prediabetes). Fasting plasma glucose results greater than or equal to 126 mg/dL meet the criteria for diagnosis of diabetes. In the absence of unequivocal hyperglycemia, results should be confirmed by repeat testing. In a patient with classic symptoms of hyperglycemia or hyperglycemic crisis, random plasma glucose results greater than or equal to 200 mg/dL meet the criteria for diagnosis of diabetes. Reference: Standards of Medical Care in Diabetes 2016, [place] [employer]. Diabetes Care. 2016.39(Suppl 1). Performed By: #### C BCDIF, CMP ####[facility] [address]98[phone] Potassium [Moles/Vol] 4.3 mmol/L Normal 3.7-5.1 [facility] Comment on above: Performed By: #### C BCDIF, CMP ####[facility] [address] [place] [phone] Protein [Mass/Vol] 6.1 g/dL Low 6.3-8.0 [facility] Comment on above: Performed By: #### C BCDIF, CMP ####[facility] [phone] Sodium [Moles/Vol] 142 mmol/L Normal 136-144 [facility] Comment on above: Performed By: #### C BCDIF, CMP ####[facility] K[address]803 [phone] Urea nitrogen [Mass/Vol] 12 mg/dL Normal 9-24 [facility] Comment on above: Performed By: #### C BCDIF, CMP ####[facility] [address] [place] [phone] Lipid Panel, [place] 018 Cholesterol [Mass/Vol] 176 mg/dL Normal <200 [facility] Comment on above: Result Comment: <200 mg/dL, Desirable 200-239 mg/dL, Borderline high >239 mg/dL, High Performed By: #### L IPB ####[place] [phone] Cholesterol in HDL [Mass/Vol] 39 mg/dL Low >39 [facility] Comment on above: Result Comment: 40-5 9 mg/dL, Acceptable >59 mg/dL, High: Negative risk factor for coronary heart disease <40 mg/dL, Low: Positive risk factor for coronary heart disease Performed By: #### L IPB ####[place] [phone] Cholesterol in LDL [Mass/Vol] 126 mg/dL High <100 [facility] Comment on above: Result Comment: <100 mg/dL, Optimal 100-129 mg/dL, Near optimal/above optimal 130-159 mg/dL, Borderline high 160-189 mg/dL, High >189 mg/dL, Very high Secondary prevention optimal LDL Cholesterol levels are recommended to be < 70 mg/dL Performed By: #### L IPB ####[place] [phone] [place] [phone] Fasting Time Unknown Normal [facility] Comment on above: Performed By: #### L IPB ####[address] [phone] LDL:HDL Ratio 3.23 High <2.54 [facility] Comment on above: Result Comment: Refe rence: 1. National Cholesterol Education Program ATP III Guideline At-A-Glance Quick Desk Reference: National Heart, Lung, and Blood [place]. National Institutes of Health. 2001: NIH Publication No. 01-3305. 2. An International Atherosclerosis Society position paper: global recommendations for the management of dyslipidemia: executive summary, Atherosclerosis. 2014: 232(2):410-413. Performed By: #### L IPB ####[address] [phone] Non HDL Cholesterol 137 mg/dL High <130 [facility] Comment on above: Result Comment: <130 mg/dL, Optimal 130-159 mg/dL, Near optimal/above optimal 160-189 mg/dL, Borderline high 190-219 mg/dL, High >219 mg/dL, Very high Secondary prevention optimal non HDL Cholesterol levels are recommended to be < 100 mg/dL Performed By: #### L IPB ####[address] [phone] TC:HDL Ratio 4.51 Normal <5.10 [facility] Comment on above: Performed By: #### L IPB ####[address] [phone] Triglyceride [Mass/Vol] 53 mg/dL Normal <150 [facility] Comment on above: Result Comment: <150 mg/dL, Normal 150-199 mg/dL, Borderline high 200-499 mg/dL, High >499 mg/dL, Very high Performed By: #### L IPB ####[address] [phone] VLDL Cholesterol 11 mg/dL Normal <30 [facility] Comment on above: Performed By: #### L IPB ####[address] [phone] NURSING PROGon 02-14-2018 NURSING PROG HNO ID: [id number] Author: Carol CaldwellRn) JAY Aly Service: (none) Author Type: Registered Nurse Type: Nursing Progress Note Filed: 02/14/2018 10:00 AM Note Text: Nursing Progress Note Patient Name: Maria De Jesus Hogan Patient [place] [facility] [id number] Daily Note:02/14/18 0741 EEG being completed. IVF infusing as ordered. Bedside report given from JAY Guardado. 0900 Neuro completed, see charting. NIH completed, results in a 2. Patient denies SAINZ or discomfort at this time. No other requests at this time. Side rails x 3 up, call light and possessions within reach. This note was completed by: Carol Aly RN [facility] NURSING PROG HNO ID: [id number] Author: Debby (Rn) JAY Saavedra Service: (none) Author Type: Registered Nurse Type: Nursing Progress Note Filed: 02/14/2018 5:37 AM Note Text: Nursing Progress Note Patient Name: Maria De Jesus Hogan Patient Location: [facility] [id number] Daily Note: 1944- received report on pt. Pt off floor for cervical MRI. 2024- pt back to floor. Assessment completed. Numbness and tingling on the Left side of his body- also experiencing a 7/10 SAINZ. SR on tele. [facility] at bedside- pt's ankles shackled. 2035- night-time medications administered and IV fluids restarted 2100- pt resting comfortably 2300- pt resting comfortably- has asked for multiple snacks and drinks. No change in the numbness/tingling/mobility of his left side. MRI negative for acute changes. 0- pt resting comfortably- no complaints of SAINZ. No changes in neurological status. 3/5 mobility in both LUE and LLE. 0300- pt resting. No change in neurological status- continues to feel numbness and tingling on left side 0500- deputy still at bedside. No change in neuro status 0535- SB on tele This note was completed by: Debby Saavedra RN Normal [facility] APTTon 02-13-2018 aPTT Coag (Bld) [Time] 26.9 s Normal 23.0-32.4 [facility] Comment on above: Result Comment: Unfr actionated Heparin Therapeutic Ranges: Standard Heparin Nomogram: 53 to 78 seconds (anti-Xa level of 0.3 to 0.7 U/ml) Low Dose/ACS Nomogram: 49 to 67 seconds (anti-Xa level of 0.2 to 0.5 U/ml) Stroke Treatment Nomogram: 49 to 67 seconds (anti-Xa level of 0.2 to 0.5 U/ml) Note: The APTT therapeutic range has been determined for the current lot of laboratory APTT reagent in use throughout the [facility]. Performed By: #### C BC, PT, PTT, BMP #### [facility] [address] [place] [address] Basic Metabolic Panlon 02-13 Anion gap [Moles/Vol] 10 mmol/L Normal 9-18 [facility] Comment on above: Performed By: #### C BC, PT, PTT, BMP #### [facility] [address] [place] [address] Calcium [Mass/Vol] 9.6 mg/dL Normal 8.5-10.2 [facility] Comment on above: Performed By: #### C BC, PT, PTT, BMP #### [facility] [address] [place] [address] Chloride [Moles/Vol] 101 mmol/L Normal 97-105 [facility] Comment on above: Performed By: #### C BC, PT, PTT, BMP #### [facility] [address] [place], [place] [phone] CO2 [Moles/Vol] 30 mmol/L Normal 22-30 [facility] Comment on above: Performed By: #### C BC, PT, PTT, BMP #### [facility] [address] [place] [address] Creatinine [Mass/Vol] 0.81 mg/dL Normal 0.73-1.22 [facility] Comment on above: Performed By: #### C BC, PT, PTT, BMP #### [facility] [address] [facility] [phone] eGFR- Amer. >60 Normal [facility] Comment on above: Performed By: #### C BC, PT, PTT, BMP #### [facility] [address] [place] [address] GFR/1.73 sq M predicted among non-blacks MDRD (S/P/Bld) [Vol rate/Area] mL/min/{1.73_m2} Normal [facility] Comment on above: Result Comment: eGFR (Estimated GFR) Units of measure: mL/min/1.73 meters squared eGFR is derived from the reexpressed MDRD Study equation using the following parameters: serum creatinine, age, gender and race. The creatinine assay has been calibrated to be traceable to IDMS. An eGFR <60 mL/min/1.73m2 for >3 months is consistent with chronic kidney disease. Refer to KDOQI guidelines for clinical interpretation. In patients with unstable renal function, e.g. those with acute kidney injury, the eGFR may not accurately reflect actual GFR. Performed By: #### C BC, PT, PTT, BMP #### [facility] [address] [place] [address] Glucose [Mass/Vol] 102 mg/dL High 74-99 [facility] Comment on above: Result Comment: The [place] Diabetes [employer] (ADA) provides guidance for cutoff values for fasting glucose and random glucose. The ADA defines fasting as no caloric intake for at least 8 hours. Fasting plasma glucose results between 100 to 125 mg/dL indicate increased risk for diabetes (prediabetes). Fasting plasma glucose results greater than or equal to 126 mg/dL meet the criteria for diagnosis of diabetes. In the absence of unequivocal hyperglycemia, results should be confirmed by repeat testing. In a patient with classic symptoms of hyperglycemia or hyperglycemic crisis, random plasma glucose results greater than or equal to 200 mg/dL meet the criteria for diagnosis of diabetes. Reference: Standards of Medical Care in Diabetes 2016, [place] [employer]. Diabetes Care. 2016.39(Suppl 1). Performed By: #### C BC, PT, PTT, BMP #### [facility] [address] [phone] Potassium [Moles/Vol] 3.8 mmol/L Normal 3.7-5.1 [facility] Comment on above: Performed By: #### C BC, PT, PTT, BMP #### [facility] [address] [facility] [phone] Sodium [Moles/Vol] 141 mmol/L Normal 136-144 [facility] Comment on above: Performed By: #### C BC, PT, PTT, BMP #### [facility] [address] [facility] [phone] Urea nitrogen [Mass/Vol] 13 mg/dL Normal 9-24 [facility] Comment on above: Performed By: #### C BC, PT, PTT, BMP #### [facility] [address] [phone] CBCon 02-13-2018 Erythrocyte distribution width (RBC) [Ratio] 13.3 % Normal 11.5-15.0 [facility] Comment on above: Performed By: #### C BC, PT, PTT, BMP #### [facility] [address] [place], [place] [phone] Hematocrit (Bld) [Volume fraction] 44.7 % Normal 39.0-51.0 [facility] Comment on above: Performed By: #### C BC, PT, PTT, BMP #### [facility] [address] [phone] Hemoglobin (Bld) [Mass/Vol] 14.9 g/dL Normal 13.0-17.0 [facility] Comment on above: Performed By: #### C BC, PT, PTT, BMP #### [facility] [address] [facility] [phone] MCH (RBC) [Entitic mass] 30.3 pG Normal 26.0-34.0 [facility] Comment on above: Performed By: #### C BC, PT, PTT, BMP #### [facility] [address] [facility] [phone] MCHC (RBC) [Mass/Vol] 33.3 g/dL Normal 30.5-36.0 [facility] Comment on above: Performed By: #### C BC, PT, PTT, BMP #### [facility] [address] [facility] [phone] MCV (RBC) [Entitic vol] 91.0 fL Normal 80.0-100.0 [facility] Comment on above: Performed By: #### C BC, PT, PTT, BMP #### [facility] [address] [facility] [phone] Platelet mean volume (Bld) [Entitic vol] 8.4 fL Low 9.0-12.7 [facility] Comment on above: Performed By: #### C BC, PT, PTT, BMP #### [facility] [address] [facility] [phone] Platelets (Bld) [#/Vol] 302 10*3/uL Normal 150-400 [facility] Comment on above: Performed By: #### C BC, PT, PTT, BMP #### [facility] [address] [facility] [phone] RBC (Bld) [#/Vol] 4.91 10*6/uL Normal 4.20-6.00 [facility] Comment on above: Performed By: #### C BC, PT, PTT, BMP #### [facility] [address] [facility] [phone] WBC (Bld) [#/Vol] 6.07 10*3/uL Normal 3.70-11.00 [facility] Comment on above: Performed By: #### C BC, PT, PTT, BMP #### [facility] [address] [facility] [phone] CNCOon 02-13-2018 CNCO Letter Text February 13, 2018 Department of Hospital Medicine [address] [place] [address] Regarding: Maria De Jesus Hogan (: 1965) Dear Dr. Rasheed: A patient of your practice, Maria De Jesus Hogan, was admitted on 02/13/2018 to [facility] under the services of the Department of Hospital Medicine, and is currently under the care of Dr. Arredondo. We look forward to collaborating with you regarding his care. If you have any questions or concerns, please call us in the Department of Hospital Medicine at [facility], at [phone]. Best Regards, Larry Borja Normal [facility] CONSULTon 02-13-2018 CONSULT HNO ID: [id number] Author: Lyric Delgado Service: Neurology General Author Type: Physician Type: Consults Filed: 02/13/2018 2:31 PM Note Text: NEUROLOGY CONSULT NOTE Consultation requested by Dr. Arredondo for an opinion regarding left-sided weakness. My final recommendations will be communicated back to the requesting physician by way of shared Medical record or letter to requesting physician via US mail. CC: Left-sided weakness HxCC: 52 year old male with history significant for stroke affecting left side 10 years ago, who presents for evaluation of left sided weakness and sensory loss. Patient presented this AM from [facility]. Last known well last night at 10 or 11. States he was sitting on the side of his bed reading. Next thing he knows 5 officers are standing around him at 530am. He feels he was unconscious rather than sleeping. States speech was not making sense. Speech is back to baseline. Denies tongue bite and urinary incontinence. No past history of seizure. Weakness is a little better but not at baseline. Reporting headache on the right latter day that alternates between sharp and dull. Sensitive to sound but not light and no nausea. Vision was blurry upon first waking up but cleared when he got to the ED. Denies dizziness. RECENT LABS: Component Latest Ref Rng AND Units 02/13/2018 02/13/2018 02/13/2018 6:55 AM 10:00 AM 1:25 PM Glucose 74 - 99 mg/dL 102 (H) BUN 9 - 24 mg/dL 13 Creatinine 0.73 - 1.22 mg/dL 0.81 Sodium 136 - 144 mmol/L 141 Potassium 3.7 - 5.1 mmol/L 3.8 Chloride 97 - 105 mmol/L 101 CO2 22 - 30 mmol/L 30 Anion Gap 9 - 18 mmol/L 10 Calcium 8.5 - 10.2 mg/dL 9.6 eGFR- >60 eGFR-All Other Races . >60 WBC 3.70 - 11.00 k/uL 6.07 RBC 4.20 - 6.00 m/uL 4.91 Hemoglobin 13.0 - 17.0 g/dL 14.9 Hematocrit 39.0 - 51.0 % 44.7 MCV 80.0 - 100.0 fL 91.0 MCH 26.0 - 34.0 pG 30.3 MCHC 30.5 - 36.0 g/dL 33.3 RDW-CV 11.5 - 15.0 % 13.3 Platelet Count 150 - 400 k/uL 302 MPV 9.0 - 12.7 fL 8.4 (L) PT Sec 9.7 - 13.0 sec 10.7 10.7 PT INR 0.9 - 1.3 1.1 1.1 APTT 23.0 - 32.4 sec 26.9 Troponin T 0.000 - 0.029 ng/mL <0.010 Magnesium 1.7 - 2.3 mg/dL 2.0 Glucose, Point of Care 74 - 99 mg/dL 95 RECENT IMAGING/DIAGNOSTICS: --MRI Brain wo contrast (02/13/2018): Acute Change: ? There is no evidence of restricted diffusion to suggest an acute infarct. Hemorrhage: ? ?No evidence of prior parenchymal hemorrhage on the gradient echo images. Mass Lesion/ Mass Effect: ? ?No evidence of an intracranial mass. ? 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 ?No significant mass effect. Chronic Change: ?The white matter is within normal limits of signal intensity for age. Parenchyma: ? No significant volume loss for age. ?The brain parenchyma is otherwise within normal limits of signal intensity and morphology. Ventricles: ? ? Normal caliber and morphology. Skull Base: ? ?Hypothalamic and pituitary region are grossly normal. ? Craniocervical junction is normal. No significant marrow replacement process. Vasculature: ? ?Major intracranial arterial structures, and dural venous sinuses show typical flow void, suggesting patency by spin echo criteria. Other: ?The visualized paranasal sinuses demonstrate minimal mucosal thickening. ?The mastoid air cells are clear. ?The orbits and extracranial soft tissues are unremarkable. IMPRESSION: No acute intracranial findings. ?No acute infarction. --CTA Brain (02/13/2018): IMPRESSION: Normal patency of the cervical great vessels, intracranial arterial and venous vasculature. ?No evidence for proximal intracranial large vessel occlusion. Advanced periodontal disease as discussed. ?Correlate with oral exam. ? Comprehensive dental management recommended, as poorly controlled periodontal disease can be an independent risk factor for atherosclerotic vascular disease. PMH: PAST MEDICAL HISTORY Diagnosis Date - CVA (cerebral vascular accident) (HCC) PSH: No past surgical history on file. CURRENT MEDS: Current Facility-Administered Medications: iv contrast (radiology procedure) INTRAVENOUS DIRECTED PRN tamsulosin ER 0.4 mg cap(s) (FLOMAX) 0.4 mg ORAL AT BEDTIME [START ON 02/14/2018] aspirin 81 mg chewable tab(s) 81 mg ORAL DAILY NaCl 0.9% iv infusion 75 mL/hr INTRAVENOUS CONTINUOUS atorvastatin 40 mg tab(s) (LIPITOR) 40 mg ORAL/FEEDING TUBE AT BEDTIME acetaminophen 650 mg tab(s) (TYLENOL) 650 mg ORAL/FEEDING TUBE q 4 H PRN ondansetron (PF) 4 mg injection (ZOFRAN) 4 mg INTRAVENOUS q 6 H PRN iv contrast (radiology procedure) INTRAVENOUS DIRECTED PRN LORazepam 2 mg injection (ATIVAN) 2 mg INTRAVENOUS ONCE ALLERGIES: ALLERGIES No Known Allergies FMH: No family history on file. SOCIAL: Social History Marital status: Single Spouse name: Years of education: Number of children: Social History Main Topics Smoking status: Current Every Day Smoker Packs/day: 0.00 Years: 0.00 Smokeless tobacco: Never Used Alcohol use: No Drug use: No REVIEW OF SYSTEMS (In addition to HPI): GEN: No fever/chills. HEENT: No recent head trauma. No recent URI. NECK: No recent neck trauma. CARDIO: No chest pain. No palpitations. RESP: No SOB or CINTRON. No cough. GI: No nausea. No vomiting. No diarrhea. No constipation. : No incontinence. No hesitancy. No frequency. No dysuria. No hematuria. MUSCULO: No myalgias. No arthralgias. NEURO: As per HPI. PSYCH: No new depression. No new anxiety. PHYSICAL EXAM: BP 130/69 Pulse 79 Temp 36.4 ?C (97.6 ?F) (Oral) Resp 18 Wt 89.9 kg (198 lb 4.8 oz) SpO2 99% GEN: Alert. NAD. Normal affect. Cooperative. HEENT: No icterus. Normal mucosa. NECK/BACK: Supple CV: RRR. No M/G/R/C. No carotid bruits. RESP: CTA b/l. EXT: No cyanosis. No edema. No erythema. SKIN: No rashes. No lesions. NEUROLOGICAL: MENTAL STATUS: Alert and oriented. Speech is fluent and spontaneous. Follows commands well. Naming intact. CN: II: PERRLA. Visual conroy intact. III, IV, : EOMI. V: reduced facial sensation to LT and PP on left. States reduced vibration on left forehead. VII: Face likely symmetric. Poor effort on testing of facial muscles VIII: No nystagmus. IX, X: Symmetric palatal rise. XI: Symmetric shoulder shrug. XII: Tongue midline with symmetric movements. MOTOR: *give way weakness on left +drift left upper and lower extremity RIGHT UE: LEFT UE Deltoid 5/5 Deltoid 5-/5 Biceps 5/5 Biceps 5-/5 Triceps 5/5 Triceps 5-/5 Financial Institution President 5/5 Financial Institution President 4/5 WE 5/5 WE 4/5 RIGHT LE: LEFT LE: HF 5/5 HF 4/5 PF 5/5 PF 4/5 DF 5/5 DF 5/5 REFLEXES: Biceps: Left 2+; Right 2+, Brachioradialis: Left 2+; Right 2+, Patellar: Left 2+; Right 2+ and Achilles: Left 2+; Right 2+. Plantar response flexor b/l. SENSATION: PP and LT reduced left arm and leg. Vibration intact and symmetric at toes CEREBELLAR: Normal F-N-F on right. On left is slow but no dysmetria. No nystagmus. GAIT: deferred due to patient condition ASSESSMENT: 52 year old male with history significant for reported stroke 10 years ago, with acute onset left-sided face, arm, and leg weakness. Brain MRI is negative for acute changes. Neurological exam with functional elements- poor effort on strength testing, give-way weakness, splitting the midline with tuning fork. Suspect functional neurological disorder vs malingering. Also in the differential would be prolonged Renata's paralysis, cervical myelopathy, atypical migraine. Is reporting headache but no nausea or light sensitivity. Recommend EEG and MRI cervical spine to rule out other causes. Can discontinue stroke pathway. Continue ASA 81 mg. PLAN: ---> MRI cervical spine ---> EEG Lyric Delgado M.D. [facility] [place] Department of [facility] Pager: [phone] February 13, [address] [facility] [address] BRAIN WO IVCONon 02-14-20 CT BRAIN WO IVCON * * *Final Report* * * DATE OF EXAM: Feb 13 2018 7:02AM [facility] [place] 0504 - CT BRAIN WO IVCON / PROCEDURE REASON: Focal neuro deficit, new, fixed, or worsening, 4.5 to 24 hours, NIHSS 6 or great * * * * Physician Interpretation * * * * EXAMINATION: CT BRAIN WO IVCON CLINICAL HISTORY: Left-sided weakness. TECHNIQUE: Serial axial images without IV contrast were obtained from the vertex to the foramen magnum. MQ: [id number] CT Dose-Length Product (DLP): 636 mGy*cm CT Dose Reduction Employed: Automated exposure control (AEC) COMPARISON: None. RESULT: Post-operative change: None. Acute change: No evidence of an acute infarct or other acute parenchymal process. Hemorrhage: No evidence of acute intracranial hemorrhage. Mass Lesion / Mass Effect: There is no evidence of an intracranial mass or extraaxial fluid collection. No significant mass effect. Chronic change: No significant parenchymal changes. Minimal atherosclerotic calcification at the ICAs. Parenchyma: There is no significant volume loss. Ventricles: The ventricles are within normal limits of size and configuration for age. Paranasal sinuses and skull base: Trivial mucosal thickening in the periphery of the left maxillary antrum. Paranasal sinus chambers, mastoid air cells and middle ear cavities are otherwise clear. The skull base and imaged soft tissues are unremarkable. IMPRESSION: Normal age appropriate appearance of the brain. No evidence for focal acute brain ischemia, mass effect, or acute intracranial hemorrhage. CRITICAL TEST/RESULTS: Communicated with Physician: EVELYN FARAH on 02/13/2018 at 07:08. Umbrella Mender: GRANT Transcribe Date/Time: Feb 13 2018 7:08A Dictated by : RENATA ACEVEDO MD This examination was interpreted and the report reviewed and electronically signed by: RENATA ACEVEDO MD on Feb 13 2018 7:12AM EST [id number] [facility] CTA HEAD W IVCONon 8 CTA HEAD W IVCON * * *Final Report* * * DATE OF EXAM: Feb 13 2018 7:14AM [facility] 0022 - CTA HEAD W IVCON / PROCEDURE REASON: Focal neuro deficit, new, fixed, or worsening, 4.5 to 24 hours, NIHSS < 6, strok * * * * Physician Interpretation * * * * EXAMINATION: CTA HEAD W IVCON, CTA NECK W IVCON CLINICAL HISTORY: Left-sided weakness. TECHNIQUE: Spiral high resolution axial images were obtained through the head, neck and superior mediastinum following bolus administration of intravenous contrast for CT angiography. Post-processed 3D maximum intensity projections were created, reviewed and archived. MQ: CTAHN_4 Contrast: 100 mL Omnipaque 350 IV Dose-Length Product (DLP): 716 mGy*cm. CT Dose Reduction Employed: Automated exposure control (AEC) COMPARISON: CT brain performed approximately 6 minutes prior to this examination. RESULT: BRAIN: Evaluation of the individual slices of the CTA demonstrates no evidence of an acute stroke. ASPECT Score = 10 Hemorrhage: No evidence of acute intracranial hemorrhage. ECASS hemorrhagic transformation score: Not Applicable Spot Sign Presence: Not Applicable Spot Sign Number: Not Applicable NECK: Soft tissues: The soft tissue planes are maintained throughout. No evidence of a soft tissue mass in the neck or superior mediastinum. No significant lymphadenopathy is seen. Spine: Alignment is normal. Mild to moderate mid and lower cervical bony degenerative change. No high-grade spinal canal narrowing. There is multilevel foraminal narrowing related to loss of disc height, endplate and uncinate osteophyte. Lung apices: Lung apices are grossly clear. Liver dome is visible, and this indicates some elevation of the right hemidiaphragm. Other: Advanced periodontal disease, bone loss surrounding the maxillary premolars and molars and remaining mandibular teeth. Grossly broken down root tip remnants of the maxillary left third molar are present. Correlate with detailed oral exam. Comprehensive dental management recommended, as poorly controlled periodontal disease can be an independent risk factor for atherosclerotic vascular disease. CT ARTERIOGRAM: Extracranial Circulation: Aortic Arch: There is a normal branching pattern from the aortic arch. There is no significant stenosis in the proximal brachiocephalic vessels. Vertebral arteries originate normally from the respective subclavian arteries. Carotid Stenosis: Right Common: No significant stenosis. Right Internal Carotid Plaque: No significant plaque formation. Right Internal Carotid Stenosis (% by NASCET Criteria): 0 Left Common: No significant stenosis. Left Internal Carotid Plaque: No significant plaque formation. Left Internal Carotid Stenosis (% by NASCET Criteria): 0 Cervical Vertebral Arteries: Patency: Bilateral Dominance: Codominant Intracranial Circulation: Anterior Circulation: Distal internal carotid arteries are normally patent to the carotid terminus. Anterior circulation branch vessels are patent. No focal high-grade intracranial stenosis, vessel cutoff, filling defect, vascular malformation, or aneurysm. Vertebrobasilar Circulation: V4 segments are normally patent. Basilar artery is patent. Typical P1 segments. Smaller branch vessels are grossly open. No vessel cutoff, high-grade stenosis, vascular malformation, or aneurysm. Major deep and cortical draining veins and dural venous sinuses show typical contrast enhancement pattern. No focal narrowing or abnormal intraluminal filling defect. IMPRESSION: Normal patency of the cervical great vessels, intracranial arterial and venous vasculature. No evidence for proximal intracranial large vessel occlusion. Advanced periodontal disease as discussed. Correlate with oral exam. Comprehensive dental management recommended, as poorly controlled periodontal disease can be an independent risk factor for atherosclerotic vascular disease. Umbrella Mender: PSCB Transcribe Date/Time: Feb 13 2018 7:25A Dictated by : RENATA ACEVEDO MD This examination was interpreted and the report reviewed and electronically signed by: RENATA ACEVEDO MD on Feb 13 2018 7:33AM EST [id number] [facility] CTA NECK W IVCONon 8 CTA NECK W IVCON * * *Final Report* * * DATE OF EXAM: Feb 13 2018 7:14AM [facility] 0024 - CTA NECK W IVCON / PROCEDURE REASON: Focal neuro deficit, new, fixed, or worsening, 4.5 to 24 hours, NIHSS < 6, strok * * * * Physician Interpretation * * * * EXAMINATION: CTA HEAD W IVCON, CTA NECK W IVCON CLINICAL HISTORY: Left-sided weakness. TECHNIQUE: Spiral high resolution axial images were obtained through the head, neck and superior mediastinum following bolus administration of intravenous contrast for CT angiography. Post-processed 3D maximum intensity projections were created, reviewed and archived. MQ: CTAHN_4 Contrast: 100 mL Omnipaque 350 IV Dose-Length Product (DLP): 716 mGy*cm. CT Dose Reduction Employed: Automated exposure control (AEC) COMPARISON: CT brain performed approximately 6 minutes prior to this examination. RESULT: BRAIN: Evaluation of the individual slices of the CTA demonstrates no evidence of an acute stroke. ASPECT Score = 10 Hemorrhage: No evidence of acute intracranial hemorrhage. ECASS hemorrhagic transformation score: Not Applicable Spot Sign Presence: Not Applicable Spot Sign Number: Not Applicable NECK: Soft tissues: The soft tissue planes are maintained throughout. No evidence of a soft tissue mass in the neck or superior mediastinum. No significant lymphadenopathy is seen. Spine: Alignment is normal. Mild to moderate mid and lower cervical bony degenerative change. No high-grade spinal canal narrowing. There is multilevel foraminal narrowing related to loss of disc height, endplate and uncinate osteophyte. Lung apices: Lung apices are grossly clear. Liver dome is visible, and this indicates some elevation of the right hemidiaphragm. Other: Advanced periodontal disease, bone loss surrounding the maxillary premolars and molars and remaining mandibular teeth. Grossly broken down root tip remnants of the maxillary left third molar are present. Correlate with detailed oral exam. Comprehensive dental management recommended, as poorly controlled periodontal disease can be an independent risk factor for atherosclerotic vascular disease. CT ARTERIOGRAM: Extracranial Circulation: Aortic Arch: There is a normal branching pattern from the aortic arch. There is no significant stenosis in the proximal brachiocephalic vessels. Vertebral arteries originate normally from the respective subclavian arteries. Carotid Stenosis: Right Common: No significant stenosis. Right Internal Carotid Plaque: No significant plaque formation. Right Internal Carotid Stenosis (% by NASCET Criteria): 0 Left Common: No significant stenosis. Left Internal Carotid Plaque: No significant plaque formation. Left Internal Carotid Stenosis (% by NASCET Criteria): 0 Cervical Vertebral Arteries: Patency: Bilateral Dominance: Codominant Intracranial Circulation: Anterior Circulation: Distal internal carotid arteries are normally patent to the carotid terminus. Anterior circulation branch vessels are patent. No focal high-grade intracranial stenosis, vessel cutoff, filling defect, vascular malformation, or aneurysm. Vertebrobasilar Circulation: V4 segments are normally patent. Basilar artery is patent. Typical P1 segments. Smaller branch vessels are grossly open. No vessel cutoff, high-grade stenosis, vascular malformation, or aneurysm. Major deep and cortical draining veins and dural venous sinuses show typical contrast enhancement pattern. No focal narrowing or abnormal intraluminal filling defect. IMPRESSION: Normal patency of the cervical great vessels, intracranial arterial and venous vasculature. No evidence for proximal intracranial large vessel occlusion. Advanced periodontal disease as discussed. Correlate with oral exam. Comprehensive dental management recommended, as poorly controlled periodontal disease can be an independent risk factor for atherosclerotic vascular disease. Umbrella Mender: GRANT Transcribe Date/Time: Feb 13 2018 7:25A Dictated by : RENATA ACEVEDO MD This examination was interpreted and the report reviewed and electronically signed by: RENATA ACEVEDO MD on Feb 13 2018 7:33AM EST [id number] [facility] ED NOTEon 02-13-2018 ED NOTE HNO ID: [id number] Author: Catalino CaldwellRnCarissa Cabrera RN Service: (none) Author Type: Registered Nurse Type: ED Notes Filed: 02/13/2018 7:30 AM Note Text: Assumed patient care at this time. [facility] ED NOTE HNO ID: [id number] Author: Claudia Harp RN Service: (none) Author Type: Registered Nurse Type: ED Notes Filed: 02/13/2018 7:13 AM Note Text: Patient returned to the Emergency Department. [facility] ED NOTE HNO ID: [id number] Author: Claudia CaldwellRn) JAY Harp Service: (none) Author Type: Registered Nurse Type: ED Notes Filed: 02/13/2018 6:56 AM Note Text: Patient transported to CT scan with monitor, Nurse and Tech. [facility] ED NOTE HNO ID: [id number] Author: Claudia Harp RN Service: (none) Author Type: Registered Nurse Type: ED Notes Filed: 02/13/2018 6:56 AM Note Text: Pt presents to the ED with CC of stroke like symptoms, unknown last well, was found on the ground at 0526 [facility]. Pt has left side weakness [facility] ED NOTE HNO ID: [id number] Author: Claudia Samuel) JAY Harp Service: (none) Author Type: Registered Nurse Type: ED Notes Filed: 02/13/2018 6:59 AM Note Text: Pt placed on director of cardiac rehabilitation and continuous pulsox [facility] ED NOTE HNO ID: [id number] Author: Claudia Harp RN Service: (none) Author Type: Registered Nurse Type: ED Notes Filed: 02/13/2018 6:51 AM Note Text: Bed: ED-02 Expected date: Expected time: Means of arrival: Comments: LST 5 [facility] ED PROV NOTEon 02-13-2018 ED PROV NOTE HNO ID: [id number] Author: Zuly Serna DO Service: Emergency Medicine Author Type: Physician Type: ED Provider Notes Filed: 02/13/2018 8:02 AM Note Text: ED Provider Note Patient Name: Maria De Jesus Hogan SERVICE DATE: 02/13/18 History Patient presents with: Potential Stroke Symptoms 52-year-old male past medical history of reported stroke 10 years ago presented with left-sided deficits, remote tobacco abuse presents from the [facility] with left-sided weakness and sensory deficits. Patient reports he went to bed around 10 or 11 yesterday evening. All he awoke and was found by staff at 5:30 this morning on his cell floor with speech disturbance and left-sided sensory changes/weakness. Left-sided sensory changes are continuous worsened and relieved by nothing. PAST MEDICAL HISTORY Diagnosis Date - CVA (cerebral vascular accident) (HCC) No past surgical history on file. No family history on file. Social History Social History Main Topics - Smoking status: Current Every Day Smoker - Smokeless tobacco: Never Used - Alcohol use No - Drug use: No - Sexual activity: Not on file ALLERGIES No Known Allergies Review of Systems HENT: Negative. Eyes: Negative. Respiratory: Negative. Cardiovascular: Negative. Gastrointestinal: Negative. Genitourinary: Negative. Musculoskeletal: Negative. Skin: Negative. Neurological: Positive for weakness and numbness. Psychiatric/Behavioral: Negative. Physical Exam BP 133/78 Pulse 82 Temp (Src) 98.4 (Oral) Resp 14 Wt 198 lb 4.8 oz (89.9kg) SpO2 99% Physical Exam Constitutional: He is oriented to person, place, and time. He appears well-developed and well-nourished. HENT: Head: Normocephalic and atraumatic. Eyes: Pupils are equal, round, and reactive to light. Conjunctivae and EOM are normal. No scleral icterus. Neck: Normal range of motion. Neck supple. Cardiovascular: Normal rate, regular rhythm, normal heart sounds and intact distal pulses. Exam reveals no gallop and no friction rub. No murmur heard. Pulmonary/Chest: Effort normal and breath sounds normal. No respiratory distress. He has no wheezes. He has no rales. He exhibits no tenderness. Abdominal: Soft. Bowel sounds are normal. He exhibits no distension and no mass. There is no tenderness. There is no rebound and no guarding. Musculoskeletal: He exhibits no edema or tenderness. Left-sided weakness Lymphadenopathy: He has no cervical adenopathy. Neurological: He is alert and oriented to person, place, and time. A cranial nerve deficit is present. Please see NIH score for further information Skin: Skin is warm and dry. No rash noted. No erythema. Psychiatric: He has a normal mood and affect. His behavior is normal. Nursing note and vitals reviewed. ED STROKE DOCUMENTATION (last 48 hours) Stroke Care Path Flowsheet Row Name 02/13/18 0656 Last Known Well Date Patient Last Known Well 02/12/18 -MB Time Patient Last Known Well ? Is Date or Time of Last Known Well Unknown Time Unknown -MB Reason Last Known Well Date/Time Not Given ? NIHSS NIHSS - Initial or Subsequent? Initial -MB NIHSS Initial - LIP ENTRY ONLY !!!!! REMEMBER TO VALIDATE DATE AND TIME !!!!! LOC 0 - alert and responsive -MB LOC Questions 1 - one correct -MB LOC Commands 0 - both correct -MB LOC Normal Gaze 0 - normal gaze -MB Visual Conroy 0 - no visual loss -MB Facial Palsy 1 - minor paralysis (normal looking face, asymmetric smile) [1] -CM Motor Left Arm 3 - no antigravity effort but even minimal movements count [2] -CM Motor Right Arm 0 - no drift -MB Motor Left Leg 3 - no antigravity effort but even minimal movements count [3] -CM Motor Right Leg 0 - no drift -MB Limb Ataxia 0 - no ataxia (or aphasic, hemiplegic) -MB Sensory 1 - mild to moderate unilateral loss but patient aware of touch (or aphasic, confused) -MB Language 0 - normal -MB Dysarthria 0 - normal -MB Extinction/Neglect 0 - normal, none detected (or visual loss alone) -MB Initial NIHSS 9 [4] -CM REQUIRED CLINICAL IMAGING INDICATORS Imaging Ordered Today: CT -MB Select CT: CT Brain Attack;CTA Head AND Neck -MB Please Document REQUIRED Indications CT Brain Attack Indications Neuro Deficits < 8 hours of Symptom Onset -MB CTA Head AND Neck Indications Neuro Deficits Within 8 Hours + NIHSS > Than or Equal to 6 -MB Stroke Documentation Impression Clinical Impression: Stroke Type? Ischemic -MB IV tPA Inclusion Criteria Does Patient Fall Within 4.5 Hour Window for IV tPA No - Patient Arrived Past 4.5 Hour Window -MB Endovascular Therapy Is NIHSS > = 6 and LKW within 8 Hours or a Wakeup Stroke (Indicates Potential Candidate for Endovascular Therapy) ? Audit Information Ref # Row Name Time Taken Time Recorded Value User 1 Facial Palsy 02/13/18 0656 02/13/18 0728 1 - minor paralysis (normal looking face, asymmetric smile) CM 1 Facial Palsy 02/13/18 0656 02/13/18 0657 0 - normal MB 2 Motor Left Arm 02/13/18 0656 02/13/18 0728 3 - no antigravity effort but even minimal movements count CM 2 Motor Left Arm 02/13/18 0656 02/13/18 0657 2 - some antigravity effort but cannot sustain MB 3 Motor Left Leg 02/13/18 0656 02/13/18 0728 3 - no antigravity effort but even minimal movements count CM 3 Motor Left Leg 02/13/18 0656 02/13/18 0657 2 - some antigravity effort but cannot sustain MB 4 Initial NIHSS 02/13/18 0656 02/13/18 0728 9 CM 4 Initial NIHSS 02/13/18 0656 02/13/18 0657 6 MB User Laboy (r) = Recorded By, (t) = Taken By, (c) = Cosigned By Initials Name DO JAZMYN Cardenas DO Diagnostic Testing ED Labs Ordered and Reviewed CBC - Abnormal; Notable for the following: Result Value Ref Range MPV 8.4 (*) 9.0 - 12.7 fL All other components within normal limits BASIC METABOLIC PNL - Abnormal; Notable for the following: Glucose 102 (*) 74 - 99 mg/dL All other components within normal limits GLUCOSE - ED(POC) ACTIVATED PTT PROTHROMBIN TIME/PT TROPONIN T EKG ordered and interpreted as normal sinus rhythm rate of 78 no appreciable acute ischemic changes ED imaging studies ordered and reviewed CTA head and neck without large vessel occlusion CT brain negative Procedures ED Course / Clinical Impression Clinical Impressions as of Feb 13 802 Left-sided weakness Sensory deficit present IV started Nursing notes and vital signs reviewed Triage note reviewed Placed on director of cardiac rehabilitation Medications administered aspirin Consultation obtained stroke neurologist Dr. Devries Consultation recommendations admission for MRI imaging Discussed with admitting hospitalist Dr. Arredondo?agreeable to admission for further treatment and care Vitals stable upon arrival. NIH equals [address] brain attack negative. CTA head and neck negative. Blood work and EKG unremarkable. Discussed with stroke neurologist as noted above who recommends admission for MRI imaging. Administered aspirin. Admit to medicine. [facility] The patient was ADMITTED TO: Regular nursing floor. Case discussed with admitting physician, Dr. Arredondo. Condition at time of disposition: stable SIGNATURE: Zuly Serna DO Critical Care I spent a total of 30 minutes of critical care time in the evaluation and management of this patient. 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 The patient received ASA and Consultation by stroke neurologist during the time that critical care was provided. Critical care time excludes separately billed procedures. DO Zuly Mckeon, DO 02/13/18 0801 Zuly Serna, DO 02/13/18 0802 [facility] HISTORY PHYSICALon HISTORY PHYSICAL HNO ID: [id number] Author: Uriel Arredondo MD Service: Hospital Medicine Author Type: Physician Type: HANDP Filed: 02/13/2018 4:38 PM Note Text: Attending Note I have personally performed a face to face assessment of the patient and have reviewed the PA/CERTIFIED DIABETES EDUCATOR note. My laboy findings include: History is patient [facility] with left sided weakness there is some inconsistency in his examination and the neurologist was concerned about his response to testing for weakness being consistent with malingering and he has downgoing Babinskis he would not open his mouth for her to get a good examination of his face. Exam is he had some facial asymmetry however with noxious stimuli and told to repeat the examination is tongue is in the midline his uvula is in the midline his eyebrows are symmetrical and the wrinkles of his forehead or symmetrical and there is no asymmetry in his smile is Babinskis downgoing Assessment/Plan are as it is difficult to prove malingering so far as MRI is negative his other evaluations negative and MRI of the C-spine and EEG are being performed to be sure this is not a postictal state although there is no history of any seizure activity and no sign of urinary incontinence etc. Other additions or changes: None Signature: Uriel Arredondo MD Date: 02/13/2018 Time: 4:35 PM SERVICE DATE: 02/13/2018 SERVICE TIME: 10:05 AM HOSPITAL MEDICINE HISTORY AND PHYSICAL PCP: Dinora Rasheed MD NIGHT AND WEEKEND COVERAGE: Nights: Please contact pager [phone]. SUBJECTIVE Chief Complaint: Left sided weakness, CVA HPI: 52year-old male past medical history of reported stroke 10 years ago presented with left-sided deficits, remote tobacco abuse presents from the [facility] with left-sided weakness and sensory deficits. Patient reports he went to bed around 10 or 11 yesterday evening. All he awoke and was found by staff at 5:30 this morning on his cell floor with speech disturbance and left-sided sensory changes/weakness. Left-sided sensory changes are continuous worsened and relieved by nothing. CT and CTA of neck negative. NIH stroke score of 9 in ER. Neurology consulted in ER and patient was not a TPA candidate. Patient admitted to hospital for MRI of brain and further monitoring of condition. Patient complaining of associated right sided headache. No nausea/ vomiting, fever/chills, chest pain or palpitations. ? ? ? PAST MEDICAL HISTORY Diagnosis Date - CVA (cerebral vascular accident) (HCC) No past surgical history on file. No family history on file. Social History Substance Use Topics - Smoking status: Current Every Day Smoker - Smokeless tobacco: Never Used - Alcohol use No Medications: Reviewed Allergies: ALLERGIES No Known Allergies Review of Systems: GENERAL: No weight loss, malaise or fevers HEENT: Negative for frequent or significant headaches, No changes in hearing or vision, no nose bleeds or other nasal problems NECK: Negative for lumps, goiter, pain and significant neck swelling RESPIRATORY: Negative for cough, hemoptysis, wheezing, COPD, dyspnea or shortness of breath CARDIOVASCULAR: Negative for chest pain, leg swelling, hypertension, CHF or palpitations : No history of dysuria, frequency or incontinence MUSCULOSKELETAL: Negative for joint pain or swelling, back pain or muscle pain SKIN: Negative for lesions, rash, and itching PSYCH: Negative for mood disorder HEMATOLOGY/LYMPHOLOGY: Negative for prolonged bleeding, bruising easily or swollen nodes NEURO: SEE HPI and left sided extremity weakness with sensory deficit OBJECTIVE: PHYSICAL EXAM BP 138/79 Pulse 72 Temp (Src) 98.1 (Oral) Resp 16 Wt 198 lb 4.8 oz (89.9kg) SpO2 98% Physical Exam Performed: GENERAL: Alert, no distress, cooperative SKIN: Negative findings: Color normal, Vascularity normal, No evidence of bleeding or bruising, No lesions noted, No edema, Temperature normal, Texture normal, Mobility and turgor normal, Nails normal without clubbing HEAD/SINUSES: No significant findings LUNGS: Negative findings: normal respiratory rate and rhythm, chest symmetric with normal A/P diameter, no chest wall tenderness, diaphragmatic excursion normal and lungs clear to auscultation CARDIAC: rate and rhythm regular; no rubs, murmurs, or gallops ABDOMEN: Abdomen soft, non-tender, BS normal, No masses or organomegaly EXTREMITIES: Positive findings: muscle strength 5x5 right sided, 1x5 left side upper and lower extremity NEURO: Positive findings: muscular weakness left sided, , sensory deficit on left side of face, hand and lower extremity. Facial symmetry with noxious stimuli. Plantar reflex intact. PERRLA. PULSES: 2+ radial, 2+ dorsalis pedis, 2+ carotid Lines, Drains, and Airways Line Peripheral 02/13/18 Admission to Hospital Short Left Antecubital 20 Gauge less than 1 day Reviewed lines, drains, AND airways. Need to be continued yes Diagnostic tests reviewed: Most recent labs and imaging results CARE COORDINATION: No Patient Care Coordination Note on file. Assessment AND Plan, all Hosp Problems Active Hospital Problems as of 02/13/2018 Noted - Resolved Hospital CVA (cerebral vascular accident) (HCC) 02/13/2018 - Present Current Assessment AND Plan Assessment: Had unspecified type of stoke about 10 years ago with minor residual left sided weakness since event. Patient having increased left sided weakness today with right sided headache. Found on floor of [facility] cell this morning. Neuro consulted in ED. Patient is not appropriate for TPA. CT of head and CT negative for acute intracranial process. Report from officer bedside states that patient has been seen several times at other facilities for similar complaint over the last several month during current incarceration. PLAN: -MRI ordered -Swallow eval -neuro consult palced -Aspirin daily -Statin daily -neuro checks as ordered -Continuous cardiac monitoring -VS per unit protocol -PT/OT consult placed. Weakness of extremity 02/13/2018 - Present Current Assessment AND Plan Assessment: Had unspecified type of stoke about 10 years ago with minor residual left sided weakness since event. Patient having increased left sided weakness today with right sided headache. Found on floor of [facility] cell this morning. Neuro consulted in ED. Patient is not appropriate for TPA. CT of head and CT negative for acute intracranial process. Report from officer bedside states that patient has been seen several times at other facilities for similar complaint over the last several month during current incarceration. PLAN: -MRI ordered -Swallow eval -neuro consult palced -Aspirin daily -Statin daily -neuro checks as ordered -Continuous cardiac monitoring -VS per unit protocol -PT/OT consult placed. History of TIA (transient ischemic attack) and stroke 02/13/2018 - Present Current Assessment AND Plan Assessment: Had unspecified type of stoke about 10 years ago with minor residual left sided weakness since event. Patient having increased left sided weakness today with right sided headache. Found on floor of [facility] cell this morning. Neuro consulted in ED. Patient is not appropriate for TPA. CT of head and CT negative for acute intracranial process. Report from officer bedside states that patient has been seen several times at other facilities for similar complaint over the last several month during current incarceration. PLAN: -MRI ordered -Swallow eval -neuro consult palced -Aspirin daily -Statin daily -neuro checks as ordered -Continuous cardiac monitoring -VS per unit protocol -PT/OT consult placed. BPH (benign prostatic hyperplasia) 02/13/2018 - Present Current Assessment AND Plan Assessment: Currently controlled PLAN: -Continue flomax Medication and Non-Pharmacologic VTE Prophylaxis/Anticoagulants Anticoagulant AND Antiplatelet Medications Start Dose Route Frequency Ordered Stop 02/14/18 0900 aspirin 81 mg chewable tab(s) 81 mg ORAL DAILY 02/13/18 0946 -- 02/13/18 0800 aspirin 324 mg chewable tab(s) 324 mg ORAL ONCE 02/13/18 0738 02/13/18 1959 02/13/18 1000 vte pharmacologic prophylaxis contraindicated (nh,oh) 02/13/18 1000 pneumatic compression stockings (nh,dc) VTE Prophylaxis: VTE prophylaxis appropriate SIGNATURE: Nilay Baker APRN.CNP PATIENT NAME: Maria De Jesus Hogan DATE: February 13, 2018 TIME: 10:05 AM PAGER/CONTACT #: [phone] [facility] Hemoglobin A1con 02-13-2018 HbA1c (Bld) [Mass fraction] 108 mg/dL [facility] Comment on above: Result Comment: eAG: (Estimated average glucose) is a calculated value from HgbA1c and is sales and service representative of the average blood glucose level in the last 2-3 month period. Performed By: #### P T, MG1 ####[facility] [id number] [place], [place] [phone]#### HBA1C ####[facility] [address] [place], [place] [phone] HbA1c (Bld) [Mass fraction] 5.4 % Normal 4.3-5.6 [facility] Comment on above: Result Comment: [place] Diabetes Association guidelines indicate that patients with HgbA1c in the range 5.7-6.4% are at increased risk for development of diabetes, and intervention by lifestyle modification may be beneficial. HgbA1c greater or equal to 6.5% is considered diagnostic of diabetes. Performed By: #### P T, MG1 ####[facility] [id number] [place] [phone]#### HBA1C ####[facility] [address] [place], [place] [phone] MRI BRAIN WO IVCONon 11-15-2 018 MRI BRAIN WO IVCON * * *Final Report* * * DATE OF EXAM: Feb 13 2018 1:03PM [facility] 0294 - MRI BRAIN WO IVCON / PROCEDURE REASON: Ataxia, stroke suspected * * * * Physician Interpretation * * * * EXAMINATION: MRI BRAIN WO IVCON CLINICAL HISTORY: Left-sided weakness. Ataxia. TECHNIQUE: Routine noncontrast MRI protocol including diffusion images. MQ: [id number] COMPARISON: CT brain and CTA head neck earlier on the same date. RESULT: Acute Change: There is no evidence of restricted diffusion to suggest an acute infarct. Hemorrhage: No evidence of prior parenchymal hemorrhage on the gradient echo images. Mass Lesion/ Mass Effect: No evidence of an intracranial mass. 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 No significant mass effect. Chronic Change: The white matter is within normal limits of signal intensity for age. Parenchyma: No significant volume loss for age. The brain parenchyma is otherwise within normal limits of signal intensity and morphology. Ventricles: Normal caliber and morphology. Skull Base: Hypothalamic and pituitary region are grossly normal. Craniocervical junction is normal. No significant marrow replacement process. Vasculature: Major intracranial arterial structures, and dural venous sinuses show typical flow void, suggesting patency by spin echo criteria. Other: The visualized paranasal sinuses demonstrate minimal mucosal thickening. The mastoid air cells are clear. The orbits and extracranial soft tissues are unremarkable. IMPRESSION: No acute intracranial findings. No acute infarction. Umbrella Mender: GRANT Transcribe Date/Time: Feb 13 2018 2:12P Dictated by : ZULY ANTONY MD This examination was interpreted and the report reviewed and electronically signed by: ZULY ANTONY MD on Feb 13 2018 2:17PM EST [id number] [facility] MRI CERVICAL SPINE WO IVCONo n 02-13-2018 MRI CERVICAL SPINE WO IVCON * * *Final Report* * * DATE OF EXAM: Feb 13 2018 8:15PM [facility] 0297 - MRI CERVICAL SPINE WO IVCON / PROCEDURE REASON: Myelopathy, sudden onset * * * * Physician Interpretation * * * * EXAMINATION: MRI CERVICAL SPINE WO IVCON CLINICAL HISTORY: Myelopathy. Sudden onset left-sided weakness. Trouble walking. TECHNIQUE: Routine cervical spine MR protocol without gadolinium. MQ: [id number] COMPARISON: None. RESULT: Counting reference: Craniocervical junction. Anatomic Variants: None. Alignment: There is mild reversal the normal cervical lordosis. There is mild/moderate loss of disc height at C4-C5 and C5-C6 reflecting degeneration. Craniocervical junction: Craniocervical junction is normal. Cord: The visualized cord is within normal limits of signal intensity and morphology. Bone marrow signal/fracture: No evidence of pathologic marrow infiltration. No evidence of prior fracture. Cervical soft tissues: The paraspinal soft tissues are within normal limits. C2-C3: Canal and foramina are patent. C3-C4: Mild narrowing the spinal canal due to broad-based disc protrusion. Foramina are patent. Canal is patent. Moderate right and mild left neural foraminal stenosis due to uncovertebral joint hypertrophy. C4-C5: Canal and foramina are patent. C5-C6: Disc osteophyte complex causes mild narrowing the spinal canal. Bilateral moderate neural foraminal stenosis due to uncovertebral joint and facet hypertrophy. C6-C7: Canal and foramina are patent. C7-T1: Canal and foramina are patent. IMPRESSION: Normal appearance of the brain stem and cervical cord. Mild degenerative disc and facet disease as detailed above. Moderate neural foraminal stenoses at bilateral C5-C6 and right C3-C4. Anatomic Variant: None. Assume 7 cervical vertebrae with counting from the craniocervical junction. Umbrella Mender: GRANT Transcribe Date/Time: Feb 13 2018 8:32P Dictated by : UMM YEN MD This examination was interpreted and the report reviewed and electronically signed by: UMM YEN MD on Feb 13 2018 8:34PM EST [id number] Normal [facility] Magnesiumon 02-13-2018 Magnesium [Mass/Vol] 2.0 mg/dL Normal 1.7-2.3 [facility] Comment on above: Performed By: #### P T, MG1 ####[facility] [address] [place] [phone]#### HBA1C ####[facility] [address] [place], [place] [phone] NURSING PROGon 02-13-2018 NURSING PROG HNO ID: [id number] Author: Cata (Rn) JAY Prather Service: (none) Author Type: Registered Nurse Type: Nursing Progress Note Filed: 02/13/2018 6:41 PM Note Text: Nursing Progress Note Patient Name: Maria De Jesus Hogan Patient Location: [facility]/[id number] Transfer Note: Patient transferred into room/unit 242. Pt. C/o 10/10 headache and L side weakness head to toes. Also, pt. C/o decreased sensation to the L side. Actions taken:Pt. oriented to room and call light. Western at the bedside. Will continue to monitor and check with patient. 1100: Pt. Still c/o L side weakness, numbness, tingling and headache. SR on telemetry. Tylenol given per MAR order. Western at the bedside. Will continue to monitor and check with patient. 1300: Pt. Back from MRI. Neurological assessment unchanged, headache improved. SR on tele. Call light in reach, bed in the lowest position. Western at the bedside. Will continue to monitor and check with patient. 1500: Pt. Stating L side numbness improved, but L side weakness unchanged. Pt. Ate lunch. Western at the bedside. Will continue to monitor and check with patient. 1700: Neurological assessment unchanged, pt. Continues to c/o L side weakness. SR on telemetry. VSS stable. Western at the bedside. Will continue to monitor and check with patient. This note was completed by: Cata Prather RN [facility] PROGRESSon 02-13-2018 PROGRESS HNO ID: [id number] Author: Garland Huizar Service: (none) Author Type: Physician Type: Progress Notes Filed: 02/13/2018 8:52 AM Note Text: TELESTROKE DOCUMENTATION Name: Maria De Jesus Hogan : 1965 Site: [place] [facility] Last Known Well (Date/Time): 02/12/182199 Neurologist Evaluation (Date/Time): 02/13/18 0733 Chief Complaint: left sided weakness and numbness HPI: 52 year old male,presents to the ED after waking up with left sided weakness. He reports having a stroke 10 years ago with left sided weakness that resolved. Vitals BP: 133/78 HR: 82 NIHSS Telestroke Type: Telephone Only Site Reported NIHSS: 9 Labs Glucose: [address] Imaging reviewed, NO acute infarct/hemorrhage seen CTA Imaging reviewed, NO large vessel occlusion or severe stenosis seen Summary Suspected ACUTE ischemic stroke IV tPA Arrival Window: No - Last Known Well greater than 4.5 Hour Window IV tPA Exclusion Criteria: Potential Candidate for Endovascular Therapy: No - Negative for evidence of large vessel occlusion Disposition The patient will remain at the referring institution for further evaluation and management Thank you for contacting the [facility]. I appreciate the opportunity for allowing me to participate in Maria De Jesus Hogan's care. Please feel free to contact me and/or the [facility] at any time if you have any further questions or need additional assistance. Garland Huizar MD February 13, 2018 8:51 AM Normal [facility] Protimeon 02-13-2018 PT Coag (PPP) [Time] 10.7 s Normal 9.7-13.0 [facility] Comment on above: Performed By: #### Tori T, MG1 ####[facility] [address] [place], [place] [phone]#### HBA1C ####[phone] Performed By: #### C BC, PT, PTT, BMP #### [facility] [address] [place] [phone] PT Coag (PPP) [Time] 1.1 s Normal 0.9-1.3 [facility] Comment on above: Result Comment: Lyssa min K Antagonist (VKA) Therapeutic Range: INR 2 to 3 (Target INR of 2.5) Note: For patients treated with VKA drugs, such as warfarin, the [employer] 2012 Guideline recommends a therapeutic INR range of 2 to 3 (target INR of 2.5). This recommendation includes high-risk patients with antiphospholipid syndrome with previous arterial or venous thromboembolism, current-generation mechanical or bioprosthetic aortic heart valve replacement. Note: Patients with mechanical aortic valve replacement and additional risk factors for thromboembolic events (atrial fibrillation, previous thromboembolism, LV dysfunction, hypercoagulable conditions) or an older generation mechanical AVR (i.e., ball in-Cage) or any mechanical MVR should have a INR therapeutic range of 2.5 to 3.5 (target INR of 3). Matt GH, et al. Chest 2012, 141:7S-47S Amelia RA, et al. [facility] 2017, 70: 252-289 Performed By: #### Tori T, MG1 ####[facility] [address] [place] [address]#### HBA1C ####[place] [id number] [place] [phone] Performed By: #### C BC, PT, PTT, BMP #### [facility] [address] [place] [phone] THERAPY NTon 02-13-2018 THERAPY NT HNO ID: [id number] Author: Abida (Registered Art Therapist) Maribell Hayes CCC/WATER PUMP SERVICER Service: Speech/Swallow Author Type: Speech Language Pathologist Type: Therapy (PT/OT/Speech/Resp) Filed: 02/13/2018 1:54 PM Note Text: Speech Therapy Speech Evaluation, Clinical Swallow Evaluation SERVICE DATE: 02/13/2018 SERVICE TIME: 1325 to 1350 ROOM: [place] [address] Diet Recommendations: Regular Consistency;Thin liquids Results and Recommendations Discussed With: Patient;Nurse Recommended Discharge Disposition: Home IMPRESSION: The patient was seen for clinical swallowing evaluation only. It is reasonably anticipated that the patient will be able to tolerate a Regular diet with Thin liquids without overt clinical signs / symptoms of oral and/or pharyngeal difficulties and maintenance of nutrition and hydration. Continue all other therapeutic dietary orders as deemed appropriate by the attending physician. This patient was seen for speech-language evaluation only. The patient is demonstrating functional Expressive / Receptive Language skills for the acute care setting. It is reasonably anticipated that the patient will be able to functionally communicate all ADL social / medical wants/needs without difficulty. The Speech-Language Pathology Department remains available for further consultation as deemed necessary and/or warranted by the referring physician. ASSESSMENT: Tolerated Full Session Goals for Plan of Care: NA PLAN: Treatment Frequency (times per week): Discontinue Therapy Services Reasons Inpatient Therapy Services Discontinued: No skilled needs;Patient appears safe and appropriate re: communication, cognition, and swallow function with the ability to return to a baseline level of function TREATMENT INTERVENTIONS: Therapy Diagnosis: No Skilled Need Interventions Provided: Speech Language Eval (18221);Clinical Swallow Evaluation (31256) $ Speech Language Eval (66877) Billed Units: 1 unit Expressive / Receptive Language assessment is completed to determine patient's current communication skills within the acute care setting and potential need for therapeutic intervention. $ Clinical Swallow Evaluation (65593) Billed Units: 1 unit Clinical Swallowing assessment completed to determine the patient's current swallowing skills and potential need for additional diagnostics and/or therapeutic intervention. Total Treatment Time (minutes): 25 FUNCTIONAL G CODE: G Code Functional Limitations: Motor speech (02/13/18 1325) Motor Speech Current Status (G8999): CH - 0 percent impaired, limited or restricted (02/13/18 1325) Motor Speech Goal Status (G9186): CH - 0 percent impaired, limited or restricted (02/13/18 1325) Motor Speech Discharge Status (G9158): CH - 0 percent impaired, limited or restricted (02/13/18 1325) Based on clinical assessment and the score on the Functional Communication Measure (FCM), the G code and corresponding severity modifiers are documented above. SUBJECTIVE: Current Hospital Course: Chart reviewed; admitted for possible CVA / Left sided weakness - Per WAITSTAFF CAPTAIN note: found by staff at 5:30 this morning on his cell floor with speech disturbance and left-sided sensory changes/weakness Reason for Speech Therapy Consult: stroke protocol; possible speech disturbance; Left sided weakness Relevant Past Medical History: Hx of CVA s/p 10 years Patient Report: I am doing ok. Home Environment Prior Functional Level: Within Functional Limits Prior Swallowing Function/Diet Textures: Regular Consistency;Thin liquids Please see discipline specific clinical documentation flowsheet for complete details for this therapy evaluation/treatment. SIGNATURE: WOODY Serrano PATIENT NAME: Maria De Jesus Hogan DATE: February 13, 2018 TIME: 1:51 PM [facility] THERAPY NT HNO ID: [id number] Author: Abida (Registered Art Therapist) Maribell Hayes CCC/MAVIS Service: Speech/Swallow Author Type: Speech Language Pathologist Type: Therapy (PT/OT/Speech/Resp) Filed: 02/13/2018 12:13 PM Note Text: SPEECH THERAPY MISSED VISIT SERVICE DATE: 02/13/2018 SERVICE TIME: 1200 to 1200 ROOM: [place] [address] Attempted Speech Evaluation;Clinical Swallow Evaluation. Patient not seen due to Test/Procedure. Spoke with nursing whom indicated that the patient was off the floor for a procedure. Regular diet has been ordered. This department will re-attempt assessment as patient becomes available and/or as schedule allows. SIGNATURE: WOODY Serrano PATIENT NAME: Maria De Jesus Hogan DATE: February 13, 2018 TIME: 12:12 PM [facility] Troponin Ton 02-13-2018 Troponin T.cardiac [Mass/Vol] ug/L Normal 0.000-0.02 9 [facility] Comment on above: Performed By: #### T NT ####[facility] [address] [place], [place] [phone] 12 Lead Electrocardiogramon 07-26-2017 12 Lead Electrocardiogram [facility] [address] [place] [address] [id number] Lead EKG04/ 1932MR#: [id number] Acct: [id number]: MARIA DE JESUS HOGAN Rep #: [id number]: 1965 51 From: Ben Luna MDAttending Dr: Salma Blanco Status: DIS INOrdering Dr: Salma Blanco MD Date: 07/17/17Location: MS2 Sex: M CAdmitted: 07/17/17Test Reason : ADMBlood Pressure : / mmHGVent. Rate : 114 BPM Atrial Rate : 114 BPMP-R Int : 160 ms QRS Dur : 092 msQT Int : 320 ms P-R-T Axes : 060 102 032 degreesQTc Int : 441 msSinus tachycardiaOtherwise normal ECGNo previous ECGs availableConfirmed by BEN LUNA MD ([id number]), assignment editor SIMIN RENO ([id number]) on 07/26/2017 1:14:57 PMReferred By: NEETA Confirmed By:BEN LUNA MD07/26/17 1315Date Ben Luna MDCC: Salma Blanco; OUT OF TOWN DOCTOR Signed [facility] Discharge Instructionon 07-01 Discharge Instruction [facility] [address] [facility] [place], [place] [address]Ldargahwquzr for Home/Discharge Xxsksgydzzdl70/21/18 0806MR#: [id number] Acct: [id number]: MARIA DE JESUS HOGAN Rep #: [id number]: 1965 51 From: Salma Blanco MDPCP: OUT OF TOWN DOCTOR Status: ADM INYou will use the following diet at home:: RegularYour food should be the consistency of: RegularDischarge Activity: Return to Normal ActivityWeight Bearing Status: Full weight bearingCall your doctor if you observe: Fever of 101 or Higher, Shortness of breath, Dizziness,Fainting spells, Chest pain, Increased palpitations (irregular heartbeat), Uncontrolled painAllergies/Adverse Reactions:Allergiesbee pollen Allergy (Verified 07/17/17 15:55)Anaphylaxisnickel Adverse Reaction (Verified 07/17/17 15:55)Rashtramadol Adverse Reaction (Verified 07/17/17 15:55)NauseaMedications to take at DischargeGabapentin [Neurontin] 600 mg PO TID PRN 03/07/17Finasteride [Proscar] 5 mg PO DAILY #30 tab 07/20/17olic Acid 1 mg PO DAILY@0800 #30 tab 07/20/17Multivitamins,Ther W-Minerals [Multivitamin With Minerals] 1 tab PO DAILYCM #30 tab 07/20/17Tamsulosin HCl [Flomax] 0.4 mg PO DAILY@1730 #30 cap 07/20/17Thiamine Hydrochloride [Vitamin B1] 100 mg PO DAILYCM #30 tab 07/20/17The following prescriptions were given:Finasteride [Proscar] 5 mg PO DAILY #30 tabFolic Acid 1 mg PO DAILY@0800 #30 tabMultivitamins,Ther W-Minerals [Multivitamin With Minerals] 1 tab PO DAILYCM #30 tabTamsulosin HCl [Flomax] 0.4 mg PO DAILY@1730 #30 capThiamine Hydrochloride [Vitamin B1] 100 mg PO DAILYCM #30 tabPrimary Care Physician:[facility] of [Primary Care Provider] -Please follow up with your Primary Care Physician in: 2 weeks.07/20/17 0807 Date Salma Blanco MDCC: OUT OF TOWN DOCTOR [facility] Discharge Summaryon 07-21-19 Discharge Summary [facility] [address] [place], [place] [address]Gwcixzsom Jmxrzxz03/21/18 1115MR#: [id number] Acct: [id number]: MARIA DE JESUS HOGAN Rep #: [id number]: 1965 51 From: Salma Blanco MDPCP: OUT OF TOWN DOCTOR Status: DIS IN YLocation: MS2 [id number] Date and DiagnosisDate of Admission: 07/17/17Date of Discharge: 07/20/17- Primary Discharge Diagnosis#1 acute alcohol withdrawal.#2 mild alcoholic hepatitis.- Secondary Discharge DiagnosisChronic ProblemsAlcohol abuse (Chronic)Chronic back pain (Chronic)Tobacco dependence (Chronic)BPH (benign prostatic hyperplasia) (Chronic)Hospital Course and TreatmentOperations: NoneProcedures: NoneSummary of Care Provided:Patient seen and examined on the day of discharge and appeared to be stable to be dischargedhome. Symptoms of anxiety, tremors and restlessness significantly improved. Denied any othercomplaints. Vital signs are stable.- Physical ExamGeneral: Alert, Oriented x3, Cooperative, No apparent distress.HEENT: Atraumatic, PERRLA, EOMI.Neck: Supple, No JVD, Negative Carotid Bruits, Trachea Midline, Thyroid Normal.Lungs: Clear to auscultation, Normal air movement, No rhonchi, No wheeze, No rales.Cardiovascular: Regular rate, Regular Rhythm, Normal S1, Normal S2, PMI Normal.Abdomen: Bowel Sounds Present, Soft, Non Tender, Non-Distended, No Hepato-splenomegaly.Extrem ities: No clubbing, No cyanosis, No edemaSkin: No rashes, No breakdownNeurological: Neuro grossly intactVital Signs are stable.Hospital course:The patient is a 51 year old M presented to the emergency room requesting admission for medicalstabilization and detoxification from acute alcohol withdrawal. Patient came in with symptomsof anxiety, restlessness, body aches and pains and abdominal discomfort. He has been usinglarge amounts of alcohol daily for long time. In the past, he was admitted twice for alcoholwithdrawal and he relapsed. He was treated with [facility] protocol with tapering course ofAtivan, multivitamins, folic acid, thiamine, as needed Catapres, Bentyl, Vistaril, Mirapex andSeroquel. His EKG revealed sinus tachycardia, otherwise normal. His routine blood work wasunremarkable. His liver enzymes were slightly elevated which is attributed to mild alcoholichepatitis. His pro time and INR were normal. His lipase, total bilirubin and alkalinephosphatase were normal. His blood alcohol level was 393. His urine drug screen was negative.After treatment with [facility] protocol, patient symptoms improved, anxiety and restlessnesssignificantly improved and he feels much better. Patient discharged home in a stable medicalcondition, discharged on multivitamins, folic acid, thiamine, continued on Proscar and Flomaxfor benign prostatic hypertrophy, recommended follow-up with PCP in 2 weeks and [facility].Discharge Activity: Return to Normal ActivityWeight Bearing Status: Full weight bearingCall your doctor if you observe: Fever of 101 or Higher, Shortness of breath, Dizziness,Fainting spells, Chest pain, Increased palpitations (irregular heartbeat), Uncontrolled painHome Medications:Medications to take at DischargeGabapentin [Neurontin] 600 mg PO TID PRN 03/07/17Finasteride [Proscar] 5 mg PO DAILY #30 tab 07/20/17olic Acid 1 mg PO DAILY@0800 #30 tab 07/20/17Multivitamins,Ther W-Minerals [Multivitamin With Minerals] 1 tab PO DAILYCM #30 tab 07/20/17Tamsulosin HCl [Flomax] 0.4 mg PO DAILY@1730 #30 cap 07/20/17Thiamine Hydrochloride [Vitamin B1] 100 mg PO DAILYCM #30 tab 07/20/17ollowing Prescrptions Were Given to Patient:Finasteride [Proscar] 5 mg PO DAILY #30 tabFolic Acid 1 mg PO DAILY@0800 #30 tabMultivitamins,Ther W-Minerals [Multivitamin With Minerals] 1 tab PO DAILYCM #30 tabTamsulosin HCl [Flomax] 0.4 mg PO DAILY@1730 #30 capThiamine Hydrochloride [Vitamin B1] 100 mg PO DAILYCM #30 tabPrimary Care Physician:Kellee Lawler,Out of [Primary Care Provider] -Please follow up with your Primary Care Physician in: 2 weeks.Disposition: HomeMinutes spent on discharge:: 26Patient Condition:: StableMedical Necessity- Tobacco UseSmoking Status: Current every day smokerTobacco Use: CigarettesMeaningful Use InfoMeaningful Use Diagnoses (Choose all that apply): None applicableCode VisitInpatient E AND M: 06291 Disch Hosp07/20/17 1119 Date Salma Blanco [employer] [facility] [employer] Signature (if applicable): Date CC: Salma Blanco; OUT OF TOWN DOCTOR; pcp Signed [facility] Emergency Department Summary on 07-18-2017 Emergency Department Summary [facility] [address] [place], [place] [address]Rhbvpoejh Department Ikjgtwf61/18/18 1553#: [id number] Acct: [id number]: MARIA DE JESUS HOGAN Rep #: [id number]: 1965 51 From: Jose Bedolla MDPCP: OUT OF TOWN DOCTOR Status: ADM IN- ER Visit SummaryDate of Service: 07/17/17Chief Complaint: History of alcoholism requesting detoxHistory of Present Illness: The patient is a 51 M year history of alcoholism. Patient statesthat [facility] [place]. And he is requesting detox again. Hedrinks 624 ounce beers daily. He has drank in the last several hours. He also has had somemild nausea vomiting. No hematemesis. No abdominal pain. No melena.Physical Examination: No aged male no acute distress. Vital signs are stable. Afebrile. HEENT exam unremarkable on the smell of alcohol. Neck nontender. Lungs coarse breath sounds.Few scattered wheezes consistent with a smoking history. Heart regular rhythm rate about 110no murmur. Chest wall nontender. Abdomen soft nontender. Moving all 4 extremities.Nontender. No deformity. No edema. Normal range of motion. Back exam nontender.Neurologically is awake and alert. He is intoxicated but moving all 4 extremities.Test Results: []Emergency Department Course and Treatment: He is requesting detox. [facility] for possible admission and treatment for detox.Treatment Plan: I spoke with Ceci from [facility] and the hospitalist and the patient is beingadmitted for detox.Disposition: AdmissionImpression: Acute on chronic alcoholismRequesting alcohol detoxThis note was generated with [employer] dictation software. It may contain incorrect words,spelling, and punctuation that were not noted in review of the chart prior to signingED Disposition- Plan for ED Patient:Chief Complaint: ETOH IntoxReferrals:[facility],Out of [Primary Care Provider] -What to do if you have ProblemsFor any increased pain, shortness of breath, bleeding, nausea or vomiting, chest pain, or anyunexpected problems, contact your Primary Care Provider. Call [facility] ([phone])or report to the closest Emergency Room.Call 911 if necessary.07/18/17 0014 Date Jose Bedolla [employer] Signature (If Indicated): Date CC: OUT OF [facility] DOCTOR [facility] Alcohol, Blood (Medical)-Ser umon 07-17-2017 SERUM ETOH 393.0 mg/dL [facility] Comment on above: Result Comment: Crit ical Result(s) Called at: 18:29:58 07/17/2017 by:Arnold [facility], [facility]The serum:whole blood ethanol ratio is approximately 1.14and varies slightly with hematocrit.Medical Alcohol reference interval and critical value innon-tolerant individuals; 50 - 100 Impairment 100 Intoxication 100 - 250 Severe Poisoning 250 - 400 Deep/possible fatal coma Performed By: #### L 100.0100 ####[facility] [address] [place], [place], [id number] CBC W/Diff, Automatedon 06-30 Absolute Neut 2.0 X10 3/uL Normal 2.0-7.7 [facility] Comment on above: Performed By: #### L 100.0100 ####[facility] [address] [place], [address] Basophils/100 WBC Auto (Bld) 0.8 % Normal 0-1 [facility] Comment on above: Performed By: #### L 100.0100 ####[facility] [address] [place], [address] Eosinophils/100 leukocytes 0.3 % Normal 0-5 [facility] Comment on above: Performed By: #### L 100.0100 ####[facility] [address] [place], [address] Erythrocyte distribution width Auto Ratio (RBC) 13.1 % Normal 11.6-14.6 [facility] Comment on above: Performed By: #### L 100.0100 ####[facility] [address] [place], [address] Erythrocytes (RBC) 4.94 M/mm3 Normal 4.6-6.2 [facility] Comment on above: Performed By: #### L 100.0100 ####[facility] [address] [place], [address] Hematocrit (HCT) 46.5 % Normal 40-54 [facility] Comment on above: Performed By: #### L 100.0100 ####[facility] [address] [place], [address] Hemoglobin mass conc (Bld) 16.4 g/dL Normal 13.0-16.5 [facility] Comment on above: Performed By: #### L 100.0100 ####[facility] [address] [place], [address] IM GRAN % 0.300 % Normal 0.0-0.9 [facility] Comment on above: Result Comment: IG% - Immature Granulocytes (promyelocytes, myelocytes andmetamyelocytes) > 1% indicates that a LEFT SHIFT is Present. Performed By: #### L 100.0100 ####[facility] [address] [place], [address] Lymphocytes 1.49 X10 3/ul Normal 0.83-4.51 [facility] Comment on above: Performed By: #### L 100.0100 ####[facility] [address] [place], [address] Lymphocytes/100 leukocytes 37.7 % Normal 19-41 [facility] Comment on above: Performed By: #### L 100.0100 ####[facility] [address] [place], [address] MCH 33.2 pg High 27.0-32.0 [facility] Comment on above: Performed By: #### L 100.0100 ####[facility] [address] [place], [address] MCHC mass conc (RBC) 35.3 g/gl Normal 32-36 [facility] Comment on above: Performed By: #### L 100.0100 ####[facility] [address] [place], [address] MCV 94.1 fL High 80-94 [facility] Comment on above: Performed By: #### L 100.0100 ####[facility] [address] [place], [address] Monocytes/100 leukocytes 11.4 % High 0-10 [facility] Comment on above: Performed By: #### L 100.0100 ####[facility] [address] [place], [address] Neutrophils/100 WBC Auto (Bld) 49.5 % Normal 47-70 [facility] Comment on above: Performed By: #### L 100.0100 ####[facility] [address] [place], [address] Platelet mean volume (PMV) 9.1 fL Normal 6.2-12.0 [facility] Comment on above: Performed By: #### L 100.0100 ####[facility] [address] [place], [address] Platelets 147 10*3/uL Low 150-450 [facility] Comment on above: Performed By: #### L 100.0100 ####[facility] [address] [place], [address] RDW SD 44.2 fl High 35.1-43.9 [facility] Comment on above: Performed By: #### L 100.0100 ####[facility] [address] [place], [address] WBC (Leukocytes) 4.0 10*3/uL Low 4.4-11.0 [facility] Comment on above: Performed By: #### L 100.0100 ####[facility] [address] [place], [address] Comprehensive Metabolic Prof [facility] 07-17-2017 A/G 1.0 RATIO Normal 0.9-2.4 [facility] Comment on above: Performed By: #### L 100.0100 ####[facility] [address] [place], [address] Alanine aminotransferase (ALT) 143 U/L High 16-61 [facility] Comment on above: Performed By: #### L 100.0100 ####[facility] [address] [place], [address] Albumin 3.7 g/dL Normal 3.2-5.0 [facility] Comment on above: Performed By: #### L 100.0100 ####[facility] [address] [place], [address] Alkaline phosphatase (ALP) 124 U/L High 45-117 [facility] Comment on above: Performed By: #### L 100.0100 ####[facility] [address] [place], [address] Aspartate aminotransferase (AST) 157 U/L High 15-37 [facility] Comment on above: Performed By: #### L 100.0100 ####[facility] [address] [place], [address] Bilirubin (total) 0.40 mg/dL Normal 0.20-1.00 [facility] Comment on above: Performed By: #### L 100.0100 ####[facility] [address] [place], [address] BUN (urea nitrogen) 9.0 RATIO Low 10-20 [facility] Comment on above: Performed By: #### L 100.0100 ####[facility] [address] [place], [address] Calcium 8.0 mg/dL Low 8.5-10.1 [facility] Comment on above: Performed By: #### L 100.0100 ####[facility] [address] [place], [address] Chloride 102 mmol/L Normal 98-107 [facility] Comment on above: Performed By: #### L 100.0100 ####[facility] [address] [place], [address] CO2 26.0 mmol/L Normal 21.0-32.0 [facility] Comment on above: Performed By: #### L 100.0100 ####[facility] [address] [place], [address] Creatinine 0.78 mg/dL Normal 0.70-1.30 [facility] Comment on above: Result Comment: The validity of the calculated GFR AND GFRAA in patients over70 years has not been determined. Clinical correlation isessential. Performed By: #### L 100.0100 ####[facility] [address] [place], [address] eGFR (non-black) 113 mL/min/{1.73_m2} Normal >60 [facility] Comment on above: Result Comment: Non- GFR Calc Performed By: #### L 100.0100 ####[facility] [address] [place], [address] eGFR (non-black) 137 mL/min/{1.73_m2} Normal >60 [facility] Comment on above: Result Comment: Afri can Marshallese GFR Calc Performed By: #### L 100.0100 ####[facility] [address] [place], [address] Estimated CRCL 122.01 ml/min Normal [facility] Comment on above: Performed By: #### L 100.0100 ####[facility] [address] [place], [address] GAP 11 Normal 5-15 [facility] Comment on above: Performed By: #### L 100.0100 ####[facility] [address] [place], [address] Globulin 3.7 g/dL Normal 2.2-4.2 [facility] Comment on above: Performed By: #### L 100.0100 ####[facility] [address] [place], [address] Glucose mass conc 71 mg/dL Low 74-106 [facility] Comment on above: Result Comment: Sixto rodriguez note revised GLUCOSE reference range /02/2018. Performed By: #### L 100.0100 ####[facility] [address] [place], [address] Potassium molar conc 3.8 mmol/L Normal 3.5-5.1 [facility] Comment on above: Performed By: #### L 100.0100 ####[facility] [address] [place], [address] Sodium 139 mmol/L Normal 136-145 [facility] Comment on above: Performed By: #### L 100.0100 ####[facility] [address] [place], [address] T PROT 7.4 g/dL Normal 6.4-8.2 [facility] Comment on above: Performed By: #### L 100.0100 ####[facility] [address] [place], [address] Urea nitrogen 7 mg/dL Normal 7-18 [facility] Comment on above: Performed By: #### L 100.0100 ####[facility] [address] [place], [address] History and Physical Examon 07-17-2017 History and Physical Exam [facility] [address] [facility] [place], [place] [address]Mgsohvw and Aetsvzry87/18/18 1632#: [id number] Acct: [id number]: MARIA DE JESUS HOGAN Rep #: [id number]: 1965 51 From: Salma Blanco MDPCP: OUT OF TOWN DOCTOR Status: ADM IN YLocation: MS2 [id number] List(1) Alcohol withdrawalStatus: Acute(2) Alcohol abuseStatus: Chronic(3) Chronic back painStatus: Chronic(4) Tobacco dependenceStatus: Chronic(5) BPH (benign prostatic hyperplasia)Status: Chronic(6) COPD (chronic obstructive pulmonary disease)Status: SuspectedHistory of Present IllnessDate of Admission: 07/17/17Chief Complaint: Shakiness, anxiety, restlessness.The patient is a 51 year old M with past medical history as mentioned above presented to theemergency room requesting admission for medical stabilization from alcohol withdrawal. Hismain presenting symptoms as well as anxiety, shakiness and restlessness that has been going onsince yesterday. He has been drinking at least 6 beers daily and his mentioned that hehas been drinking this way at least for 50 years. He complains of vague abdominal pain,described as cramping, 4-5 out of 10 in severity, not radiating, associated with nausea andvomiting and without aggravating or relieving factors. When I asked the patient if he wasadmitted for detoxification in the past, he mentioned that he never been admitted. Apparently,he told the ER physician that he was admitted in May, for detoxification at [facility]. Upon revision of his chart, he was admitted for medical stabilization [facility] back in March,. In the emergency room, patient was afebrile,tachycardic, blood pressure stable and his pulse ox was maintained on room air. No routineblood work performed in the ER. He is being admitted for alcohol withdrawal for medicalstabilization.Past Medical HistoryPast Medical History (Chronic Problems):Chronic ProblemsAlcohol abuse (Chronic)Chronic back pain (Chronic)Tobacco dependence (Chronic)BPH (benign prostatic hyperplasia) (Chronic)Allergiesbee pollen Allergy (Verified 07/17/17 15:55)Anaphylaxisnickel Adverse Reaction (Verified 07/17/17 15:55)Rashtramadol Adverse Reaction (Verified 07/17/17 15:55)NauseaHome Medications:Ambulatory OrdersMedication Instructions RecordedGabapentin [Neurontin] 600 mg PO TID 03/07/17Surgical History: - - Cyst removal on face.Psychiatric History: No pertinent psych hxSmoking Status: Current every day smokerAlcohol: HeavyDrugs: None- *Family History MaternalHistory Items: Cancer - Rectal, - - Alcohol abuse PaternalHistory Items: Heart Disease, - - Alcohol abuseReview of SystemsConstitutional: Reports: Anorexia, Weakness. Denies: Chills, FeverEyes: Denies: Blurred vision, Double vision, Drainage, RednessHEENT: Denies: Difficulty Hearing, Ear Pain, Eye Pain, Nasal Congestion, Sore ThroatCardiovascular: Denies: Chest Pain, Chest Pressure, Edema, Heaviness, Light Headedness,Palpitations, Paroxysmal Noc. Dyspnea, SyncopeRespiratory: Reports: Cough, Shortness of Breath. Denies: Hemoptysis, WheezingGastrointestinal: Reports: Abdominal Pain, Nausea, Vomiting. Denies: Constipation, DiarrheaGenitourinary: Reports: Urgency. Denies: Dysuria, Frequency, HematuriaMusculoskeletal: Denies: Arm Pain, Back Pain, Foot PainSkin: Denies: Dryness, RashNeurological: Denies: Balance problems, Double vision, Change in Speech, Confusion, Headaches,IncoordinationPs ychiatric: Reports: Anxiety. Denies: DepressionEndocrine: Denies: Change in Body Habitus, PolydipsiaVTE Information - Inpt OnlyVTE Present on Admission: NoVTE Mechan Device Prophylaxis: NoneVTE Pharm Prophylaxis ordered?: No- Physical ExamGeneral: Alert, Oriented x3, Cooperative, - - Anxious, restless.HEENT: Atraumatic, PERRLA, EOMIOral: Moist Mucosa, No Gingival or Mucosal Lesions/ UlcerationsNeck: Supple, No JVD, Negative Carotid Bruits, Trachea Midline, Thyroid Normal Size and TextureLungs: Clear to auscultation, No rhonchi, No wheeze, No rales, DiminishedCardiovascular: Regular rate, Regular Rhythm, Normal S1, Normal S2, No murmurs, PMI NormalAbdomen: Bowel Sounds Present, Soft, Non Tender, Non-Distended, No Hepato-splenomegalyExtremi ties: No clubbing, No cyanosis, No edemaSkin: No rashes, No breakdownLymphatic: No Cervical, Supraclavicular, or Inguinal AdenopathyNeurological: Cranial nerves II-XII grossly intact, Motor Exam 5/5 strength throughoutPsych/Mental Status: Anxious, Restless, Alert and oriented to time, place, person, mood andaffectVital SignsTemp Pulse Resp BP97.2 F L 117 H 16 115/ 14:45 07/17/17 14:45 07/17/17 14:45 07/17/17 14:45Weight: 184 lb 1.376 ozBody Mass Index (BMI) 25.7Assessment/PlanThis is 51 years old male patient presented to the emergency room requesting admission formedical stabilization due to acute alcohol withdrawal and he is being admitted fordetoxification.#1 acute alcohol withdrawal: Patient has been drinking alcohol daily for the last 30 years.After division of discharge, patient was admitted twice in the last year for medicalstabilization and he relapsed. At this time, he is tachycardic, anxious and restless. Bloodpressure stable. No routine blood work was done in the ER plan: Admit to [facility] floor,cardiac monitoring, initiate [facility] protocol with tapering course of Ativan, folic acid,thiamine, multivitamins, stat CBC and CMP, lipase, urine drug screen, and INR, routine EKG, asneeded Tylenol, as needed Bentyl, Seroquel, Mirapex, IV Zofran as needed, notify [facility]office.#2 benign prostatic hypertrophy: Continue Flomax and Proscar.#3 suspected COPD: Clinically stable, pulse ox is maintained on room air. Plan for albuterolas needed.#4 chronic back pain: Continue gabapentin, Tylenol as needed.#5 alcohol abuse: Plan as above.#6 tobacco abuse: Patient smokes cigarettes, more than a pack every day. Plan for NicoDermpatch daily.#7 DVT prophylaxis: Low risk patient, no prophylaxis indicated.This note was generated with [employer] dictation software. It may contain incorrect words,spelling, and punctuation that were not noted in checking the note before signing.Code VisitInpatient DINA: [id number] Init Hosp L207/17/17 1644 Date [facility] Blanco [facility] Signature: Date (if applicable)CC: Salma Blnaco; OUT OF TOWN DOCTOR Signed [facility] Lipaseon 07-17-2017 Lipase 248 U/L Normal 73-393 [facility] Comment on above: Performed By: #### L 100.0100 ####[facility] [address] [place], [address] Prothrombin Time w/INRon INR Coag RelTime (PPP) 0.9 {INR} Normal [facility] Comment on above: Performed By: #### L 300.3900 ####[facility] [address] [place], [address] Prothrombin time (PT) Coag time (PPP) 12.4 s Normal 11.7-14.9 [facility] Comment on above: Performed By: #### L 300.3900 ####[facility] [address] [place], [address] Urine Drug Screen (VISTA)on 07-17-2017 BARBITIURATES Negative Normal < 200 ng/mL [facility] Comment on above: Performed By: #### L 100.0100 ####[facility] [address] [place], [address] BENZODIAZIPINE Negative Normal < 200 ng/mL [facility] Comment on above: Performed By: #### L 100.0100 ####[facility] [address] [place], [address] ECSTACY Negative Normal < 500 ng/mL [facility] Comment on above: Performed By: #### L 100.0100 ####[facility] [address] [place], [address] PCP Negative Normal < 25 ng/mL [facility] Comment on above: Performed By: #### L 100.0100 ####[facility] [address] [place], [address] THC Negative Normal < 50 ng/mL [facility] Comment on above: Performed By: #### L 100.0100 ####[facility] [address] [place], [address] Urine, amphetamines presence Negative Normal <1000 ng/mL [facility] Comment on above: Performed By: #### L 100.0100 ####[facility] [address] [place], [address] Urine, cocaine presence Negative Normal < 30 0 ng/mL [facility] Comment on above: Performed By: #### L 100.0100 ####[facility] [address] [place], [place], [address] Urine, methadone presence Negative Normal < 300 ng/mL [facility] Comment on above: Performed By: #### L 100.0100 ####[facility] [address] [place], [address] Urine, opiates presence Negative Normal < 30 0 ng/mL [facility] Comment on above: Performed By: #### L 100.0100 ####[facility] [address] [place], [place], [address] VISTA UDS PH 6 Normal [facility] Comment on above: Performed By: #### L 100.0100 ####[facility] [address] [place], [place], [address] TO BE CONFIRMED Normal [facility] Comment on above: Result Comment: CONF IRMATORY TESTING FOR ALL POSITIVE URINE DRUG SCREENRESULTS WILL ONLY BE SENT OUT UPON PHYSICIAN ORDER.VISTA Urine Drug Screen methods provide only preliminaryanalytical test results. A more specific alternate chemicalmethod must be used in order to obtain a confirmedanalytical result. Gas chromatography/mass spectrometery(GC/MS) is the preferred confirmatory method. Clinicalconsideration and professional judgement should be appliedto any drug of abuse test result, particularly whenpreliminary positive results are used.URINE TCA TESTING MUST BE ORDERED SEPARATELY. USE TESTMNEMONIC: UTCA Performed By: #### L 100.0100 ####[facility] [address] [place], [address] Discharge Instructionon 03-01 Discharge Instruction [facility] [address] [place], [place] [address]Kuymqatltkxo for Home/Discharge Xqyuhqqpvinr38/10/17 0823MR#: [id number] Acct: [id number]: MARIA DE JESUS HOGAN Rep #: [id number]: 1965 51 From: Joon Bellamy [facility]: Status: ADM IN- Discharge DiagnosesCurrent Active Problems:Current Active and Chronic ProblemsAlcohol abuse (Chronic)Chronic back pain (Chronic)Tobacco dependence (Chronic)BPH (benign prostatic hyperplasia) (Chronic)You will use the following diet at home:: No restrictionsDischarge Activity: May not drive while taking narcotic pain medications.Allergies/Adve rse Reactions:Allergiesbee pollen Allergy (Verified 03/07/17 17:02)Anaphylaxisnickel Adverse Reaction (Verified 03/07/17 17:02)Rashtramadol Adverse Reaction (Verified 03/07/17 17:02)NauseaMedications to take at DischargeFinasteride [Proscar] 5 mg PO DAILY 03/07/17Gabapentin [Neurontin] 600 mg PO TID 03/07/17Tamsulosin HCl [Flomax] 0.4 mg PO BID 03/07/17HydrOXYzine LEX [Vistaril] 50 mg PO Q6H PRN PRN #60 cap 03/09/17The following prescriptions were given:HydrOXYzine LEX [Vistaril] 50 mg PO Q6H PRN PRN #60 capPRN Reason: Mild Anxiety (score 1/3)Proposed Discharge Date: 03/10/1712823 Date Joon Bellamy MDCC: [facility] Discharge Summaryon 03-10-20 Discharge Summary [facility] [address] [facility] [place], [place] [address]Wljvdihyi Tbhoiad28/10/17 0824MR#: [id number] Acct: [id number]: MARIA DE JESUS OHGAN Rep #: [id number]: 1965 51 From: Joon Bellamy [facility]: Status: ADM IN YLocation: MS2 [id number] Date and Diagnosis- Problem ListPatient Problems:Active and Suspected ProblemsAlcohol withdrawal (Acute)COPD (chronic obstructive pulmonary disease) (Suspected)Date of Admission: 03/07/17Date of Discharge: 03/10/17- Primary Discharge DiagnosisActive and Suspected ProblemsAlcohol withdrawal (Acute)COPD (chronic obstructive pulmonary disease) (Suspected)- Secondary Discharge DiagnosisChronic ProblemsAlcohol abuse (Chronic)Chronic back pain (Chronic)Tobacco dependence (Chronic)BPH (benign prostatic hyperplasia) (Chronic)Hospital Course and TreatmentSummary of Care Provided:Patient is a 51-year-old gentleman with history of chronic alcohol abuse admitted with acutealcohol withdrawal. Patient has been admitted to regular nursing floor for medicalstabilization using lorazepam1. Acute alcohol withdrawal admitted for medical stabilization with lorazepam and wascounseled on cessation2. Chronic back pain patient is on Neurontin did continue3. BPH patient is on both Proscar and Flomax this was continued4. History of CVA with mild left-sided residual weakness5. Tobacco dependence counseled on cessation, offered nicotine patch for tobacco cravings7. DVT prophylaxis low risk did encourage early ambulationDischarge Activity: May not drive while taking narcotic pain medications.Home Medications:Medications to take at DischargeFinasteride [Proscar] 5 mg PO DAILY 03/07/17Gabapentin [Neurontin] 600 mg PO TID 03/07/17Tamsulosin HCl [Flomax] 0.4 mg PO BID 03/07/17HydrOXYzine LEX [Vistaril] 50 mg PO Q6H PRN PRN #60 cap 03/09/17Following Prescrptions Were Given to Patient:HydrOXYzine LEX [Vistaril] 50 mg PO Q6H PRN PRN #60 capPRN Reason: Mild Anxiety (score 1/3)Disposition: HomeMinutes spent on discharge:: 35Patient Condition:: StableMeaningful Use InfoMeaningful Use Diagnoses (Choose all that apply): None applicableCode VisitInpatient Natalie WALL M: [id number] Disch Hosp03/10/17 0825 Date Joon Bellamy [facility] [place] Signature (if applicable): Date CC: Joon Bellamy MD Signed [facility] CBC W/Diff, Automatedon 12-0 Absolute Neut 1.3 X10 3/uL Low 2.0-7.7 [facility] Comment on above: Performed By: #### L 100.0100 ####[facility] [address] [place], [address] Basophils/100 WBC Auto (Bld) 0.7 % Normal 0-1 [facility] Comment on above: Performed By: #### L 100.0100 ####[facility] [address] [place], [address] Eosinophils/100 leukocytes 1.5 % Normal 0-5 [facility] Comment on above: Performed By: #### L 100.0100 ####[facility] [address] [place], [address] Erythrocyte distribution width Auto Ratio (RBC) 12.7 % Normal 11.6-14.6 [facility] Comment on above: Performed By: #### L 100.0100 ####[facility] [address] [place], [address] Erythrocytes (RBC) 3.76 M/mm3 Low 4.6-6.2 [facility] Comment on above: Performed By: #### L 100.0100 ####[facility] [address] [place], [address] Hematocrit (HCT) 36.8 % Low 40-54 [facility] Comment on above: Performed By: #### L 100.0100 ####[facility] [address] [place], [address] Hemoglobin mass conc (Bld) 12.9 g/dL Low 13.0-16.5 [facility] Comment on above: Performed By: #### L 100.0100 ####[facility] [address] [place], [address] IM GRAN % 0.000 % Normal 0.0-0.9 [facility] Comment on above: Result Comment: IG% - Immature Granulocytes (promyelocytes, myelocytes andmetamyelocytes) > 1% indicates that a LEFT SHIFT is Present. Performed By: #### L 100.0100 ####[facility] [address] [place], [address] Lymphocytes 2.14 X10 3/ul Normal 0.83-4.51 [facility] Comment on above: Performed By: #### L 100.0100 ####[facility] [address] [place], [address] Lymphocytes/100 leukocytes 53.4 % High 19-41 [facility] Comment on above: Performed By: #### L 100.0100 ####[facility] [address] [place], [address] MCH 34.3 pg High 27.0-32.0 [facility] Comment on above: Performed By: #### L 100.0100 ####[facility] [address] [place], [address] MCHC mass conc (RBC) 35.1 g/gl Normal 32-36 [facility] Comment on above: Performed By: #### L 100.0100 ####[facility] [address] [place], [address] MCV 97.9 fL High 80-94 [facility] Comment on above: Performed By: #### L 100.0100 ####[facility] [address] [place], [address] Monocytes/100 leukocytes 11.0 % High 0-10 [facility] Comment on above: Performed By: #### L 100.0100 ####[facility] [address] [place], [address] Neutrophils/100 WBC Auto (Bld) 33.4 % Low 47-70 [facility] Comment on above: Performed By: #### L 100.0100 ####[facility] [address] [place], [address] Platelet mean volume (PMV) 8.6 fL Normal 6.2-12.0 [facility] Comment on above: Performed By: #### L 100.0100 ####[facility] [address] [place], [address] Platelets 224 10*3/uL Normal 150-450 [facility] Comment on above: Performed By: #### L 100.0100 ####[facility] [address] [place], [address] RDW SD 44.5 fl High 35.1-43.9 [facility] Comment on above: Performed By: #### L 100.0100 ####[facility] [address] [place], [address] WBC (Leukocytes) 4.0 10*3/uL Low 4.4-11.0 [facility] Comment on above: Performed By: #### L 100.0100 ####[facility] [address] [place], [address] Comprehensive Metabolic Prof ilgigi 03-08-2017 A/G 0.9 RATIO Normal 0.9-2.4 [facility] Comment on above: Performed By: #### L 500.4050 ####[facility] [address] [place], [address] Alanine aminotransferase (ALT) 111 U/L High 12-78 [facility] Comment on above: Performed By: #### L 500.4050 ####[facility] [address] [place], [address] Albumin 2.7 g/dL Low 3.4-5.0 [facility] Comment on above: Result Comment: Sixto rodriguez note revised Albumin AND Globulin reference rangeeffective 2017. Performed By: #### L 500.4050 ####[facility] [address] [place], [address] Alkaline phosphatase (ALP) 94 U/L Normal 45-117 [facility] Comment on above: Performed By: #### L 500.4050 ####[facility] [address] [place], [address] Aspartate aminotransferase (AST) 116 U/L High 15-37 [facility] Comment on above: Result Comment: Mode rate Hemolysis, Result may be falsely increased. Performed By: #### L 500.4050 ####[facility] [address] [place], [address] Bilirubin (total) 0.60 mg/dL Normal 0.20-1.00 [facility] Comment on above: Performed By: #### L 500.4050 ####[facility] [address] [place], [address] BUN (urea nitrogen) 12.6 RATIO Normal 10-20 [facility] Comment on above: Performed By: #### L 500.4050 ####[facility] [address] [place], [address] Calcium 7.5 mg/dL Low 8.5-10.1 [facility] Comment on above: Performed By: #### L 500.4050 ####[facility] [address] [place], [address] Chloride 102 mmol/L Normal 98-107 [facility] Comment on above: Performed By: #### L 500.4050 ####[facility] [address] [place], [address] CO2 29.0 mmol/L Normal 21.0-32.0 [facility] Comment on above: Performed By: #### L 500.4050 ####[facility] [address] [place], [address] Creatinine 0.71 mg/dL Normal 0.70-1.30 [facility] Comment on above: Result Comment: The validity of the calculated GFR AND GFRAA in patients over70 years has not been determined. Clinical correlation isessential. Performed By: #### L 500.4050 ####[facility] [address] [place], [address] eGFR (non-black) 151 mL/min/{1.73_m2} Normal >60 [facility] Comment on above: Result Comment: Afri can Marshallese GFR Calc Performed By: #### L 500.4050 ####[facility] [address] [place], [address] eGFR (non-black) 125 mL/min/{1.73_m2} Normal >60 [facility] Comment on above: Result Comment: Non- GFR Calc Performed By: #### L 500.4050 ####[facility] [address] [place], [address] Estimated CRCL 134.04 ml/min Normal [facility] Comment on above: Performed By: #### L 500.4050 ####[facility] [address] [place], [address] GAP 8 Normal 5-15 [facility] Comment on above: Performed By: #### L 500.4050 ####[facility] [address] [place], [address] Globulin 2.9 g/dL Normal 2.2-4.2 [facility] Comment on above: Performed By: #### L 500.4050 ####[facility] [address] [place], [address] Glucose mass conc 80 mg/dL Normal 70-110 [facility] Comment on above: Performed By: #### L 500.4050 ####[facility] [address] [place], [address] Potassium molar conc 3.9 mmol/L Normal 3.5-5.1 [facility] Comment on above: Result Comment: Mode rate Hemolysis, Result may be falsely increased. Performed By: #### L 500.4050 ####[facility] [address] [place], [address] Sodium 139 mmol/L Normal 136-145 [facility] Comment on above: Performed By: #### L 500.4050 ####[facility] [address] [place], [address] T PROT 5.6 g/dL Low 6.4-8.2 [facility] Comment on above: Performed By: #### L 500.4050 ####[facility] [address] [place], [address] Urea nitrogen 9 mg/dL Normal 7-18 [facility] Comment on above: Performed By: #### L 500.4050 ####[facility] [address] [place], [address] CBC W/Diff, Automatedon 12-0 Absolute Neut 1.7 X10 3/uL Low 2.0-7.7 [facility] Comment on above: Performed By: #### L 100.0100 ####[facility] [address] [place], [address] Basophils/100 WBC Auto (Bld) 0.8 % Normal 0-1 [facility] Comment on above: Performed By: #### L 100.0100 ####[facility] [address] [place], [address] Eosinophils/100 leukocytes 0.3 % Normal 0-5 [facility] Comment on above: Performed By: #### L 100.0100 ####[facility] [address] [place], [address] Erythrocyte distribution width Auto Ratio (RBC) 13.4 % Normal 11.6-14.6 [facility] Comment on above: Performed By: #### L 100.0100 ####[facility] [address] [place], [address] Erythrocytes (RBC) 4.25 M/mm3 Low 4.6-6.2 [facility] Comment on above: Performed By: #### L 100.0100 ####[facility] [address] [place], [address] Hematocrit (HCT) 42.8 % Normal 40-54 [facility] Comment on above: Performed By: #### L 100.0100 ####[facility] [address] [place], [address] Hemoglobin mass conc (Bld) 14.3 g/dL Normal 13.0-16.5 [facility] Comment on above: Performed By: #### L 100.0100 ####[facility] [address] [place], [address] IM GRAN % 0.300 % Normal 0.0-0.9 [facility] Comment on above: Result Comment: IG% - Immature Granulocytes (promyelocytes, myelocytes andmetamyelocytes) > 1% indicates that a LEFT SHIFT is Present. Performed By: #### L 100.0100 ####[facility] [address] [place], [address] Lymphocytes 1.86 X10 3/ul Normal 0.83-4.51 [facility] Comment on above: Performed By: #### L 100.0100 ####[facility] [address] [place], [address] Lymphocytes/100 leukocytes 47.2 % High 19-41 [facility] Comment on above: Performed By: #### L 100.0100 ####[facility] [address] [place], [address] MCH 33.6 pg High 27.0-32.0 [facility] Comment on above: Performed By: #### L 100.0100 ####[facility] [address] [place], [address] MCHC mass conc (RBC) 33.4 g/gl Normal 32-36 [facility] Comment on above: Performed By: #### L 100.0100 ####[facility] [address] [place], [address] MCV 100.7 fL High 80-94 [facility] Comment on above: Performed By: #### L 100.0100 ####[facility] [address] [place], [address] Monocytes/100 leukocytes 8.1 % Normal 0-10 [facility] Comment on above: Performed By: #### L 100.0100 ####[facility] [address] [place], [address] Neutrophils/100 WBC Auto (Bld) 43.3 % Low 47-70 [facility] Comment on above: Performed By: #### L 100.0100 ####[facility] [address] [place], [address] Platelet mean volume (PMV) 8.5 fL Normal 6.2-12.0 [facility] Comment on above: Performed By: #### L 100.0100 ####[facility] [address] [place], [address] Platelets 240 10*3/uL Normal 150-450 [facility] Comment on above: Performed By: #### L 100.0100 ####[facility] [address] [place], [address] RDW SD 49.4 fl High 35.1-43.9 [facility] Comment on above: Performed By: #### L 100.0100 ####[facility] [address] [place], [address] WBC (Leukocytes) 3.9 10*3/uL Low 4.4-11.0 [facility] Comment on above: Performed By: #### L 100.0100 ####[facility] [address] [place], [address] Comprehensive Metabolic Prof ilon 03-07-2017 A/G 0.9 RATIO Normal 0.9-2.4 [facility] Comment on above: Performed By: #### L 500.4050 ####[facility] [address] [place], [address] Alanine aminotransferase (ALT) 136 U/L High 12-78 [facility] Comment on above: Performed By: #### L 500.4050 ####[facility] [address] [place], [address] Albumin 3.1 g/dL Low 3.4-5.0 [facility] Comment on above: Result Comment: Sixto rodriguez note revised Albumin AND Globulin reference rangeeffective 2017. Performed By: #### L 500.4050 ####[facility] [address] [place], [address] Alkaline phosphatase (ALP) 107 U/L Normal 45-117 [facility] Comment on above: Performed By: #### L 500.4050 ####[facility] [address] [place], [address] Aspartate aminotransferase (AST) 146 U/L High 15-37 [facility] Comment on above: Performed By: #### L 500.4050 ####[facility] [address] [place], [address] Bilirubin (total) 0.40 mg/dL Normal 0.20-1.00 [facility] Comment on above: Performed By: #### L 500.4050 ####[facility] [address] [place], [address] BUN (urea nitrogen) 8.8 RATIO Low 10-20 [facility] Comment on above: Performed By: #### L 500.4050 ####[facility] [address] [place], [address] Calcium 7.7 mg/dL Low 8.5-10.1 [facility] Comment on above: Performed By: #### L 500.4050 ####[facility] [address] [place], [address] Chloride 101 mmol/L Normal 98-107 [facility] Comment on above: Performed By: #### L 500.4050 ####[facility] [address] [place], [address] CO2 31.0 mmol/L Normal 21.0-32.0 [facility] Comment on above: Performed By: #### L 500.4050 ####[facility] [address] [place], [address] Creatinine 0.91 mg/dL Normal 0.70-1.30 [facility] Comment on above: Result Comment: The validity of the calculated GFR AND GFRAA in patients over70 years has not been determined. Clinical correlation isessential. Performed By: #### L 500.4050 ####[facility] [address] [place], [address] eGFR (non-black) 94 mL/min/{1.73_m2} Normal >60 [facility] Comment on above: Result Comment: Non- GFR Calc Performed By: #### L 500.4050 ####[facility] [address] [place], [address] eGFR (non-black) 114 mL/min/{1.73_m2} Normal >60 [facility] Comment on above: Result Comment: Afri can Marshallese GFR Calc Performed By: #### L 500.4050 ####[facility] [address] [place], [address] Estimated CRCL 104.58 ml/min Normal [facility] Comment on above: Performed By: #### L 500.4050 ####[facility] [address] [place], [address] GAP 7 Normal 5-15 [facility] Comment on above: Performed By: #### L 500.4050 ####[facility] [address] [place], [address] Globulin 3.4 g/dL Normal 2.2-4.2 [facility] Comment on above: Performed By: #### L 500.4050 ####[facility] [address] [place], [address] Glucose mass conc 126 mg/dL High 70-110 [facility] Comment on above: Result Comment: Fast ing Glucose result greater than or equal to 126 mg/dLsuggests DIABETES MELLITUS per A.D.A. criteria. Performed By: #### L 500.4050 ####[facility] [address] [place], [address] Potassium molar conc 3.6 mmol/L Normal 3.5-5.1 [facility] Comment on above: Performed By: #### L 500.4050 ####[facility] [address] [place], [address] Sodium 139 mmol/L Normal 136-145 [facility] Comment on above: Performed By: #### L 500.4050 ####[facility] [address] [place], [address] T PROT 6.5 g/dL Normal 6.4-8.2 [facility] Comment on above: Performed By: #### L 500.4050 ####[facility] [address] [place], [address] Urea nitrogen 8 mg/dL Normal 7-18 [facility] Comment on above: Performed By: #### L 500.4050 ####[facility] [address] [place], [address] History and Physical Examon 03-07-2017 [facility] [address] [place], [place] [address]Xvlousf and Gfsyegvj31/07/17 1730#: [id number] Acct: [id number]: SAMIRAMARIA DE JESUS Rep #: [id number]: 1965 51 From: Estella Fletcher RESPIRATORY SUPPORT TECHNICIAN-CPCP: Status: ADM IN YLocation: MS2 NA972-4 Problem List(1) Alcohol abuseStatus: Chronic(2) Chronic back painStatus: Chronic(3) Tobacco dependenceStatus: Chronic(4) BPH (benign prostatic hyperplasia)Status: Chronic(5) COPD (chronic obstructive pulmonary disease)Status: Suspected(6) CVA (cerebral vascular accident)Status: ResolvedHistory of Present IllnessDate of Admission: 03/07/17Chief Complaint: Alcohol withdrawalThe patient is a 51 year old M who presents through [facility] program due to chronic alcoholabuse/alcohol withdrawal. He has a past medical history of chronic back pain, BPH, tobaccodependence, suspected COPD, and reported history of stroke approximately 10 years ago with mildresidual left-sided weakness. Patient states he has abused alcohol since the age of 11[facility], most recently 2 [facility] [place] months before he relapsed. He states he did not haveoutpatient follow-up at that time. He currently drinks 4-5 24 ounce beers per day as well asoccasional vodka or other liquor. His last drink was around 1:00 this afternoon. He reportshe has had a seizure in the past when going through withdrawal. He has a current 1-2 pack perday smoker. He reports his primary care physician ordered a chest x-ray and he was placed karishma albuterol inhaler. He states he was not definitively diagnosed with COPD although it wassuspected and he needs further testing. Patient states he has significant family history ofalcohol abuse including in both his mom and dad and grandparents. Patient states he wasmarried in July and wishes to obtain sobriety for both himself and his new family. He deniesother drug use. He states he has lost about 25 pounds in the past 4 months due to loss ofappetite. He states he would rather drink alcohol then eat. He currently complains of beingon edge, mild tremors and mild diaphoresis. Denies GI/ complaints. Denies nausea,vomiting. Denies other complaints at this time.Past Medical HistoryPast Medical History (Chronic Problems):Chronic ProblemsAlcohol abuse (Chronic)Chronic back pain (Chronic)Tobacco dependence (Chronic)BPH (benign prostatic hyperplasia) (Chronic)Allergiesbee pollen Allergy (Verified 03/07/17 17:02)Anaphylaxisnickel Adverse Reaction (Verified 03/07/17 17:02)Rashtramadol Adverse Reaction (Verified 03/07/17 17:02)NauseaHome Medications:Ambulatory OrdersMedication Instructions RecordedFinasteride [Proscar] 5 mg PO DAILY 03/07/17Gabapentin [Neurontin] 600 mg PO TID 03/07/17Tamsulosin HCl [Flomax] 0.4 mg PO BID 03/07/17Surgical History: - - Cyst removal on face.Psychiatric History: No pertinent psych hxLives: Spouse/ Significant OtherSmoking Status: Current every day smokerTobacco Use: CigarettesAlcohol: HeavyDrugs: None- *Family History MaternalHistory Items: Cancer - Rectal, - - Alcohol abuse PaternalHistory Items: Heart Disease, - - Alcohol abuseReview of SystemsConstitutional: Reports: Weight Change - -25 pounds in 4 months, - - Poor appetiteHEENT: Denies: Head Aches, Sinus Congestion, Sinus DrainageCardiovascular: Denies: Chest Pain, PalpitationsRespiratory: Reports: Shortness of breath upon exertion. Denies: Cough, Shortness of breath atrestGastrointestinal: Denies: Abdominal Pain, Nausea, VomitingGenitourinary: Denies: DysuriaMusculoskeletal: Reports: Back Pain - Chronic. Denies: Joint Pain, Joint TendernessSkin: Denies: Rash, WoundsNeurological: Denies: Numbness, Tingling, Focal weaknessPsychiatric: Denies: Anxiety, Depression, Homicidal Ideations, Suicidal IdeationsHematologic/ Lymphatic: Denies: Easy Bruising, Easy BleedingVTE Information - Inpt OnlyVTE Present on Admission: NoVTE Mechan Device Prophylaxis: NoneVTE Pharm Prophylaxis ordered?: YesPatient Problems:Active and Suspected ProblemsCOPD (chronic obstructive pulmonary disease) (Suspected)- Physical ExamGeneral: Alert, Oriented x3, Cooperative, No apparent distressHEENT: Atraumatic, PERRLA, EOMI, NormocephalicNeck: Supple, No JVD, Negative Carotid BruitsLungs: Clear to auscultation, DiminishedCardiovascular: Regular Rhythm, Normal S1, Normal S2, No murmurs, TachycardicAbdomen: Bowel Sounds Present, Soft, Non Tender, Non-DistendedExtremities: No clubbing, No cyanosis, No edema, Capillary Refill Less than 3 SecondsSkin: No rashes, No breakdownMusculoskeletal: No Tenderness to Palpation of Joints or ExtremitiesNeurological: Cranial nerves II-XII grossly intact, Neuro grossly intactPsych/Mental Status: Normal Affect, AppropriateVital SignsTemp Pulse Resp BP Pulse Ox98.8 F 105 H 18 134/98 H 17:05 03/07/17 17:05 03/07/17 17:05 03/07/17 17:05 03/07/17 17:05Oxygen Delivery Method Room AirWeight: 79.515 kgBody Mass Index (BMI) 24.4Assessment/PlanActive and Suspected ProblemsCOPD (chronic obstructive pulmonary disease) (Suspected)1. Alcohol withdrawal-medical stabilization per protocol. Fall precautions. CMP, CBC pending.Nutrition/dietary consulted regarding weight loss. Ensure supplementation. PT/OT. Patientwill need ongoing outpatient follow-up indefinitely to maintain sobriety. [facility] workingwith patient on outpatient plan.2. Tobacco dependence-encourage smoking cessation. Patient states he wishes to quit smoking.Nicotine replacement patch.3. BPH-continue Proscar and Flomax.4. Chronic back pain-continue gabapentin.5. Suspected COPD-no acute exacerbation. Albuterol as needed.6. Reported history of CVA-patient states this was approximately 10 years ago. Unknown ofcause. He reports mild left-sided residual weakness. He has not on aspirin, statin.DVT prophylaxis-Lovenox subcu History of Present IllnessThe patient is a 51 year old M []Past Medical HistoryAllergiesbee pollen Allergy (Verified 03/07/17 17:02)Anaphylaxisnickel Adverse Reaction (Verified 03/07/17 17:02)Rashtramadol Adverse Reaction (Verified 03/07/17 17:02)Nausea- Physical ExamVital SignsTemp Pulse Resp BP Pulse Ox98.8 F 105 H 18 134/98 H 17:05 03/07/17 17:05 03/07/17 17:05 03/07/17 17:05 03/07/17 17:05Oxygen Delivery Method Room AirWeight: 79.515 kgBody Mass Index (BMI) 24.4Laboratory Tests Past 24 HrsWBC 3.9 LRBC 4.25 LHgb 14.3Hct 42.8MCV 100.7 HAssessment/PlanPatient was seen and examined independently. Being managed in conjunction with nursepractitioner, Estella Fletcher.51-year-old male with history of alcohol use disorder since the age of 11 comes in formedical nebulization under the [facility] program.He admits to feeling tremulous and anxious, history of having gone through detox. History isas aboveVitals are stable on the floor, tachycardic with HR 105.Admitting labs reviewed with WBC count of 3.9, hemoglobin 14.3 platelet 214. Normal BMP,elevated AST and ALT, normal ALP total bilirubin, elevated glucose(non-fasting). Repeat CMP justyn.m.We will continue to manage with a [facility] protocol, HbA1c, and albuterol/ipratropium inhaleras neededCode VisitInpatient Natalie WALL M: [id number] Init Hosp L203/07/17 174 Date Estella Fletcher RESPIRATORY SUPPORT TECHNICIAN-[id number] Cosigner Signature: Date (if applicable) Cari Baer [facility]: IRIS Fletcher; Cari Baer MD Signed [facility] Vital Signs Date Time Vital Sign Value Performing Clinician Facility 08-14-2024 09:42-0400 Body height 180.3 cm Lynda Rasheed MD Work Phone: [facility] 08-14-2024 09:42-0400 Body mass index (BMI) [Ratio] 31.66 kg/m2 Lynda Rasheed MD Work Phone: [facility] 08-14-2024 09:42-0400 Body temperature 97.9 [degF] Lynda Rasheed MD Work Phone: [facility] 08-14-2024 09:42-0400 Body weight 102.97 kg Lynda Rasheed MD Work Phone: [facility] 08-14-2024 09:42-0400 Diastolic blood pressure 76 mm[Hg] Lynda Rasheed MD Work Phone: [facility] 08-14-2024 09:42-0400 Heart rate 90 /min Lynda Rasheed MD Work Phone: [facility] 08-14-2024 09:42-0400 Systolic blood pressure 112 mm[Hg] Lynda Rasheed MD Work Phone: [facility] 08-10-2024 16:25-0400 Body height 180.3 cm Catalino Waddell MD Work Phone: [facility] 08-10-2024 16:25-0400 Body mass index (BMI) [Ratio] 31.1 kg/m2 Catalino Waddell MD Work Phone: [facility] 08-10-2024 16:25-0400 Body temperature 97.81 [degF] Catalino Waddell MD Work Phone: [facility] 08-10-2024 16:25-0400 Body weight 101.15 kg Catalino Waddell MD Work Phone: [facility] 08-10-2024 16:25-0400 Diastolic blood pressure 99 mm[Hg] Catalino Waddell MD Work Phone: [facility] 08-10-2024 16:25-0400 Heart rate 99 /min Catalino Waddell MD Work Phone: [facility] 08-10-2024 16:25-0400 Respiratory rate 16 /min Catalino Waddell MD Work Phone: [facility] 08-10-2024 16:25-0400 SaO2% (BldA) [Mass fraction] 99 % Catalino Waddell MD Work Phone: [facility] 08-10-2024 16:25-0400 Systolic blood pressure 175 mm[Hg] Catalino Waddell MD Work Phone: [facility] 08-06-2024 11:33-0400 Body temperature 97.81 [degF] Matthew Demarco DO Work Phone: [facility] 08-06-2024 11:33-0400 Diastolic blood pressure 95 mm[Hg] Matthew Demarco DO Work Phone: [facility] 08-06-2024 11:33-0400 Heart rate 102 /min Matthew Demarco DO Work Phone: [facility] 08-06-2024 11:33-0400 Respiratory rate 16 /min Matthew Demarco DO Work Phone: [facility] 08-06-2024 11:33-0400 SaO2% (BldA) [Mass fraction] 95 % Matthew Demarco DO Work Phone: [facility] 08-06-2024 11:33-0400 Systolic blood pressure 139 mm[Hg] Matthew Demarco DO Work Phone: [facility] 08-04-2024 15:29-0400 Body height 181 cm Matthew Demarco DO Work Phone: [facility] 08-04-2024 15:29-0400 Body mass index (BMI) [Ratio] 31.15 kg/m2 Matthew Demarco DO Work Phone: [facility] 08-04-2024 15:29-0400 Body weight 102.06 kg Matthew Demarco DO Work Phone: [facility] 07-01-2024 20:33-0400 Diastolic blood pressure 87 mm[Hg] Goyo Melara MD Work Phone: [facility] 07-01-2024 20:33-0400 Heart rate 91 /min Goyo Melara MD Work Phone: [facility] 07-01-2024 20:33-0400 Respiratory rate 14 /min Goyo Melara MD Work Phone: [facility] 07-01-2024 20:33-0400 SaO2% (BldA) [Mass fraction] 99 % Goyo Melara MD Work Phone: [facility] 07-01-2024 20:33-0400 Systolic blood pressure 129 mm[Hg] Goyo Melara MD Work Phone: [facility] 07-01-2024 19:53-0400 Body height 177.8 cm Goyo Melara MD Work Phone: [facility] 07-01-2024 19:53-0400 Body mass index (BMI) [Ratio] 31.85 kg/m2 Goyo Melara MD Work Phone: [facility] 07-01-2024 19:53-0400 Body temperature 98.1 [degF] Goyo Melara MD Work Phone: [facility] 07-01-2024 19:53-0400 Body weight 100.7 kg Goyo Melara MD Work Phone: [facility] 06-16-2024 14:06-0400 Body height 177.8 cm Lynda Rasheed MD Work Phone: [facility] 06-16-2024 14:06-0400 Body mass index (BMI) [Ratio] 31.71 kg/m2 Lynda Rasheed MD Work Phone: [facility] 06-16-2024 14:06-0400 Body temperature 97.3 [degF] Lynda Rasheed MD Work Phone: [facility] 06-16-2024 14:06-0400 Body weight 100.25 kg Lynda Rasheed MD Work Phone: [facility] 06-16-2024 14:06-0400 Diastolic blood pressure 66 mm[Hg] Lynda Rasheed MD Work Phone: [facility] 06-16-2024 14:06-0400 Heart rate 108 /min Lynda Rasheed MD Work Phone: [facility] 06-16-2024 14:06-0400 SaO2% (BldA) [Mass fraction] 94 % Lynda Rasheed MD Work Phone: [facility] 06-16-2024 14:06-0400 Systolic blood pressure 106 mm[Hg] Lynda Rasheed MD Work Phone: [facility] 06-04-2024 10:54-0500 Body temperature 97.9 [degF] Catalino Imani DO Work Phone: [facility] 06-04-2024 10:54-0500 Diastolic blood pressure 99 mm[Hg] Catalino Yuaci DO Work Phone: [facility] 06-04-2024 10:54-0500 Heart rate 99 /min Catalino Yuaci DO Work Phone: [facility] 06-04-2024 10:54-0500 Respiratory rate 20 /min Catalino Gigiaci DO Work Phone: [facility] 06-04-2024 10:54-0500 SaO2% (BldA) [Mass fraction] 94 % Catalino Yuaci DO Work Phone: [facility] 06-04-2024 10:54-0500 Systolic blood pressure 141 mm[Hg] Catalino Diallo DO Work Phone: [facility] 06-02-2024 18:30-0500 Body height 177.8 cm Catalino Diallo DO Work Phone: [facility] 06-02-2024 18:30-0500 Body mass index (BMI) [Ratio] 31.57 kg/m2 Catalino Diallo DO Work Phone: [facility] 06-02-2024 18:30-0500 Body weight 99.79 kg Catalino Diallo DO Work Phone: [facility] 05-25-2024 15:50-0500 Diastolic blood pressure 94 mm[Hg] Goyo Melara MD Work Phone: [facility] 05-25-2024 15:50-0500 Systolic blood pressure 113 mm[Hg] Goyo Melara MD Work Phone: [facility] 05-25-2024 15:46-0500 Body height 180.3 cm Goyo Melara MD Work Phone: [facility] 05-25-2024 15:46-0500 Body mass index (BMI) [Ratio] 32.08 kg/m2 Goyo Melara MD Work Phone: [facility] 05-25-2024 15:46-0500 Body temperature 97.5 [degF] Goyo Melara MD Work Phone: [facility] 05-25-2024 15:46-0500 Body weight 104.33 kg Goyo Melara MD Work Phone: [facility] 05-25-2024 15:46-0500 Heart rate 114 /min Gooy Melara MD Work Phone: [facility] 05-25-2024 15:46-0500 Respiratory rate 18 /min Goyo Melara MD Work Phone: [facility] 05-25-2024 15:46-0500 SaO2% (BldA) [Mass fraction] 93 % Goyo Melara MD Work Phone: [facility] 05-20-2024 13:15-0500 Body height 182.9 cm Lynda Rasheed MD Work Phone: [facility] 05-20-2024 13:15-0500 Body mass index (BMI) [Ratio] 30.54 kg/m2 Lynda Rasheed MD Work Phone: [facility] 05-20-2024 13:15-0500 Body temperature 97 [degF] Lynda Rasheed MD Work Phone: [facility] 05-20-2024 13:15-0500 Body weight 102.15 kg Lynda Rasheed MD Work Phone: [facility] 05-20-2024 13:15-0500 Diastolic blood pressure 75 mm[Hg] Lynda Rasheed MD Work Phone: [facility] 05-20-2024 13:15-0500 Heart rate 96 /min Lynda Rasheed MD Work Phone: [facility] 05-20-2024 13:15-0500 SaO2% (BldA) [Mass fraction] 97 % Lynda Rasheed MD Work Phone: [facility] 05-20-2024 13:15-0500 Systolic blood pressure 118 mm[Hg] Lynda Rasheed MD Work Phone: [facility] 05-10-2024 11:17-0500 Body temperature 98.29 [degF] Johnny Glozman DO Work Phone: [facility] 05-10-2024 11:17-0500 Diastolic blood pressure 86 mm[Hg] Johnny Glozman DO Work Phone: [facility] 05-10-2024 11:17-0500 Heart rate 107 /min Johnny Glozman DO Work Phone: [facility] 05-10-2024 11:17-0500 Respiratory rate 18 /min Johnny Glozman DO Work Phone: [facility] 05-10-2024 11:17-0500 SaO2% (BldA) [Mass fraction] 94 % Johnny Glozman DO Work Phone: [facility] 05-10-2024 11:17-0500 Systolic blood pressure 122 mm[Hg] Johnny [facility]ozman DO [facility]: [facility] 05-08-2024 12:07-0500 Body height 183.4 cm Johnny Glozman DO Work Phone: [facility] 05-08-2024 12:07-0500 Body mass index (BMI) [Ratio] 27.65 kg/m2 Johnny Glozman DO Work Phone: [facility] 05-08-2024 12:07-0500 Body weight 92.99 kg Johnny Glozman DO [facility]: [facility] 04-12-2024 07:10-0500 Body temperature 97.3 [degF] Mejgon Miesha DO Work Phone: [facility] 04-12-2024 07:10-0500 Diastolic blood pressure 95 mm[Hg] Mejgon Miesha DO Work Phone: [facility] 04-12-2024 07:10-0500 Heart rate 87 /min Mejgon Miesha DO Work Phone: [facility] 04-12-2024 07:10-0500 Respiratory rate 16 /min Mejgon Miesha DO Work Phone: [facility] 04-12-2024 07:10-0500 SaO2% (BldA) [Mass fraction] 97 % Mejgon Miesha DO [facility]: [facility] 04-12-2024 07:10-0500 Systolic blood pressure 134 mm[Hg] Mejgon Miesha DO Work Phone: [facility] 04-11-2024 16:17-0500 Body height 180.3 cm Mejgon Miesha DO Work Phone: [facility] 04-10-2024 19:47-0500 Body mass index (BMI) [Ratio] 31.49 kg/m2 Mejgon Miesha DO Work Phone: [facility] 04-10-2024 19:47-0500 Body weight 102.4 kg Kolby Whiteside DO Work Phone: [facility] 02-28-2024 09:54-0500 Body height 180.3 cm Myra Darden MD Work Phone: [facility] 02-28-2024 09:54-0500 Body mass index (BMI) [Ratio] 32.5 kg/m2 Myra Darden MD Work Phone: [facility] 02-28-2024 09:54-0500 Body weight 105.69 kg Myra Darden MD Work Phone: [facility] 02-28-2024 09:54-0500 Diastolic blood pressure 86 mm[Hg] Myra Darden MD Work Phone: [facility] 02-28-2024 09:54-0500 Heart rate 100 /min Myra Darden MD Work Phone: [facility] 02-28-2024 09:54-0500 SaO2% (BldA) [Mass fraction] 94 % Myra Darden MD Work Phone: [facility] Comment on above: 02-28-2024 09:54-0500 Systolic blood pressure 126 mm[Hg] Myra Darden MD Work Phone: [facility] 02-05-2024 08:15-0500 Body height 180.3 cm Lynda Rasheed MD Work Phone: [facility] 02-05-2024 08:15-0500 Body mass index (BMI) [Ratio] 31.74 kg/m2 Lynda Rasheed MD Work Phone: [facility] 02-05-2024 08:15-0500 Body temperature 98.1 [degF] Lynda Rasheed MD Work Phone: [facility] 02-05-2024 08:15-0500 Body weight 103.24 kg Lynda Rasheed MD Work Phone: [facility] 02-05-2024 08:15-0500 Diastolic blood pressure 80 mm[Hg] Lynda Rasheed MD Work Phone: [facility] 02-05-2024 08:15-0500 Heart rate 93 /min Lynda Rasheed MD Work Phone: [facility] 02-05-2024 08:15-0500 SaO2% (BldA) [Mass fraction] 96 % Lynda Rasheed MD Work Phone: [facility] 02-05-2024 08:15-0500 Systolic blood pressure 127 mm[Hg] Lynda Rasheed MD Work Phone: [facility] 01-24-2024 11:26-0400 Body temperature 97.11 [degF] Triston Abrahma MD Work Phone: [facility] 01-24-2024 11:26-0400 Diastolic blood pressure 79 mm[Hg] Triston Abraham MD Work Phone: [facility] 01-24-2024 11:26-0400 Respiratory rate 16 /min Triston Abraham MD Work Phone: [facility] 01-24-2024 11:26-0400 Systolic blood pressure 113 mm[Hg] Triston Abraham MD Work Phone: [facility] 01-24-2024 08:16-0400 Heart rate 94 /min Triston Abraham MD Work Phone: [facility] 01-24-2024 08:16-0400 SaO2% (BldA) [Mass fraction] 98 % Triston Abraham MD Work Phone: [facility] 01-20-2024 22:51-0400 Body height 180.3 cm Triston Abraham MD Work Phone: [facility] 01-20-2024 22:51-0400 Body mass index (BMI) [Ratio] 32.08 kg/m2 Triston Abraham MD Work Phone: [facility] 01-20-2024 22:51-0400 Body weight 104.33 kg Triston Abraham MD Work Phone: [facility] 11-30-2023 08:09-0400 Body temperature 97.3 [degF] Steve Demarco MD Work Phone: [facility] 11-30-2023 08:09-0400 Diastolic blood pressure 92 mm[Hg] Steve Demarco MD Work Phone: [facility] 11-30-2023 08:09-0400 Heart rate 112 /min Steve Demarco MD Work Phone: [facility] 11-30-2023 08:09-0400 Respiratory rate 18 /min Steve Demarco MD Work Phone: [facility] 11-30-2023 08:09-0400 SaO2% (BldA) [Mass fraction] 95 % Steve Demarco MD Work Phone: [facility] 11-30-2023 08:09-0400 Systolic blood pressure 136 mm[Hg] Steve Demarco MD Work Phone: [facility] 11-27-2023 20:24-0400 Body height 180.3 cm Steve Demarco MD Work Phone: [facility] 11-27-2023 20:24-0400 Body mass index (BMI) [Ratio] 32.08 kg/m2 Steve Demarco MD Work Phone: [facility] 11-27-2023 20:24-0400 Body weight 104.33 kg Steve Demarco MD Work Phone: [facility] 07-31-2023 10:14-0400 Body temperature 96.8 [degF] Triston Abraham MD Work Phone: [facility] 07-31-2023 10:14-0400 Diastolic blood pressure 104 mm[Hg] Triston Abraham MD Work Phone: [facility] 07-31-2023 10:14-0400 Heart rate 97 /min Triston Abraham MD Work Phone: [facility] 07-31-2023 10:14-0400 Respiratory rate 19 /min Triston Abraham MD Work Phone: [facility] 07-31-2023 10:14-0400 SaO2% (BldA) [Mass fraction] 96 % Triston Abraham MD Work Phone: [facility] 07-31-2023 10:14-0400 Systolic blood pressure 148 mm[Hg] Triston Abraham MD Work Phone: [facility] 07-28-2023 01:01-0400 Body height 180.3 cm Triston Abraham MD Work Phone: [facility] 07-28-2023 01:01-0400 Body mass index (BMI) [Ratio] 29.99 kg/m2 Triston Abraham MD Work Phone: [facility] 07-28-2023 01:01-0400 Body weight 97.52 kg Triston Abraham MD Work Phone: [facility] 07-11-2023 11:18-0400 Body temperature 97.39 [degF] Catalino Mujica MD Work Phone: [facility] 07-11-2023 11:18-0400 Diastolic blood pressure 87 mm[Hg] Catalino Mujica MD Work Phone: [facility] 07-11-2023 11:18-0400 Heart rate 106 /min Catalino Mujica MD Work Phone: [facility] 07-11-2023 11:18-0400 Respiratory rate 16 /min Catalino Mujica MD Work Phone: [facility] 07-11-2023 11:18-0400 SaO2% (BldA) [Mass fraction] 95 % Catalino Mujica MD Work Phone: [facility] 07-11-2023 11:18-0400 Systolic blood pressure 123 mm[Hg] Catalino Mujica MD Work Phone: [facility] 07-08-2023 17:46-0400 Body height 180.3 cm Catalino Mujica MD Work Phone: [facility] 07-08-2023 17:46-0400 Body mass index (BMI) [Ratio] 30.68 kg/m2 Catalino Mujica MD Work Phone: [facility] 07-08-2023 17:46-0400 Body weight 99.79 kg Catalino Mujica MD Work Phone: [facility] 05-23-2023 08:00-0500 Body temperature 98.01 [degF] Scooter Luna MD Work Phone: [facility] 05-23-2023 08:00-0500 Diastolic blood pressure 96 mm[Hg] Scotoer Luna MD Work Phone: [facility] 05-23-2023 08:00-0500 Heart rate 108 /min Scooter Luna MD Work Phone: [facility] 05-23-2023 08:00-0500 Respiratory rate 14 /min Scooter Luan MD Work Phone: [facility] 05-23-2023 08:00-0500 Systolic blood pressure 136 mm[Hg] Scooter Luna MD Work Phone: [facility] 05-22-2023 20:39-0500 SaO2% (BldA) [Mass fraction] 95 % Scooter Luna MD Work Phone: [facility] 05-20-2023 19:47-0500 Body height 177.8 cm Scooter Luna MD Work Phone: [facility] 05-20-2023 19:47-0500 Body mass index (BMI) [Ratio] 28.55 kg/m2 Scooter Luna MD Work Phone: [facility] 05-20-2023 19:47-0500 Body weight 90.27 kg Scooter Luna MD Work Phone: [facility] 03-19-2023 10:21-0500 Body height 180.3 cm Catalino Waddell MD Work Phone: [facility] 03-19-2023 10:21-0500 Body mass index (BMI) [Ratio] 29.99 kg/m2 Catalino Waddell MD Work Phone: [facility] 03-19-2023 10:21-0500 Body temperature 98.2 [degF] Catalino Waddell MD Work Phone: [facility] 03-19-2023 10:21-0500 Body weight 97.52 kg Catalino Waddell MD Work Phone: [facility] 03-19-2023 10:21-0500 Diastolic blood pressure 82 mm[Hg] Catalino Waddell MD Work Phone: [facility] 03-19-2023 10:21-0500 Heart rate 114 /min Catalino Waddell MD Work Phone: [facility] 03-19-2023 10:21-0500 Respiratory rate 16 /min Catalino Waddell MD Work Phone: [facility] 03-19-2023 10:21-0500 SaO2% (BldA) [Mass fraction] 95 % Catalino Waddell MD Work Phone: [facility] 03-19-2023 10:21-0500 Systolic blood pressure 141 mm[Hg] Catalino Waddell MD Work Phone: [facility] 02-18-2023 07:50-0500 Body temperature 97.81 [degF] Harjinder Darnell MD Work Phone: [facility] 02-18-2023 07:50-0500 Diastolic blood pressure 100 mm[Hg] Harjinder Darnell MD Work Phone: [facility] 02-18-2023 07:50-0500 Heart rate 93 /min Harjinder Darnell MD Work Phone: [facility] 02-18-2023 07:50-0500 Respiratory rate 16 /min Harjinder Darnell MD Work Phone: [facility] 02-18-2023 07:50-0500 SaO2% (BldA) [Mass fraction] 99 % Harjinder Darnell MD Work Phone: [facility] 02-18-2023 07:50-0500 Systolic blood pressure 164 mm[Hg] Harjinder Darnell MD Work Phone: [facility] 02-17-2023 09:17-0500 Diastolic blood pressure 93 mm[Hg] Harjinder Darnell MD Work Phone: [facility] 02-17-2023 09:17-0500 Heart rate 93 /min Harjinder Darnell MD Work Phone: [facility] 02-17-2023 09:17-0500 Respiratory rate 16 /min Harjinder Darnell MD Work Phone: [facility] 02-17-2023 09:17-0500 SaO2% (BldA) [Mass fraction] 96 % Harjinder Darnell MD Work Phone: [facility] 02-17-2023 09:17-0500 Systolic blood pressure 138 mm[Hg] Harjinder Darnell MD Work Phone: [facility] 02-17-2023 09:03-0500 Body height 180.3 cm Harjinder Darnell MD Work Phone: [facility] 02-17-2023 09:03-0500 Body mass index (BMI) [Ratio] 30.68 kg/m2 Harjinder Darnell MD Work Phone: [facility] 02-17-2023 09:03-0500 Body temperature 97.9 [degF] Harjinder Darnell MD Work Phone: [facility] 02-17-2023 09:03-0500 Body weight 99.79 kg Harjinder Darnell MD Work Phone: [facility] 02-11-2023 11:26-0500 Body temperature 97.39 [degF] Anusha Kothari MD Work Phone: [facility] 02-11-2023 11:26-0500 Diastolic blood pressure 97 mm[Hg] Anusha Kothari MD Work Phone: [facility] 02-11-2023 11:26-0500 Heart rate 104 /min Anusha Kothari MD Work Phone: [facility] 02-11-2023 11:26-0500 Respiratory rate 17 /min Anusha Kothari MD Work Phone: [facility] 02-11-2023 11:26-0500 SaO2% (BldA) [Mass fraction] 95 % Anusha Kothari MD Work Phone: [facility] 02-11-2023 11:26-0500 Systolic blood pressure 141 mm[Hg] Anusha Kothari MD Work Phone: [facility] 02-08-2023 16:46-0500 Body mass index (BMI) [Ratio] 30.13 kg/m2 Anusha Kothari MD Work Phone: [facility] 02-08-2023 16:46-0500 Body weight 95.25 kg Anusha Kothari MD Work Phone: [facility] 12-26-2022 08:25-0400 Body height 177.8 cm Lynda Rasheed MD Work Phone: [facility] 12-26-2022 08:25-0400 Body mass index (BMI) [Ratio] 32 kg/m2 Lynda Rasheed MD Work Phone: [facility] 12-26-2022 08:25-0400 Body temperature 98.29 [degF] Lynda Rasheed MD Work Phone: [facility] 12-26-2022 08:25-0400 Body weight 101.15 kg Lynda Rasheed MD Work Phone: [facility] 12-26-2022 08:25-0400 Diastolic blood pressure 82 mm[Hg] Lynda Rasheed MD Work Phone: [facility] 12-26-2022 08:25-0400 Heart rate 98 /min Lynda Rasheed MD Work Phone: [facility] 12-26-2022 08:25-0400 SaO2% (BldA) [Mass fraction] 93 % Lynda Rasheed MD Work Phone: [facility] 12-26-2022 08:25-0400 Systolic blood pressure 116 mm[Hg] Lynda Rasheed MD Work Phone: [facility] 09-25-2022 08:23-0400 Body height 177.8 cm Lynda Rasheed MD Work Phone: [facility] 09-25-2022 08:23-0400 Body mass index (BMI) [Ratio] 30.85 kg/m2 Lynda Rasheed MD Work Phone: [facility] 09-25-2022 08:23-0400 Body temperature 98.71 [degF] Lynda Rasheed MD Work Phone: [facility] 09-25-2022 08:23-0400 Body weight 97.52 kg Lynda Rasheed MD Work Phone: [facility] 09-25-2022 08:23-0400 Diastolic blood pressure 64 mm[Hg] Lynda Rasheed MD Work Phone: [facility] 09-25-2022 08:23-0400 Heart rate 112 /min Lynda Rasheed MD Work Phone: [facility] 09-25-2022 08:23-0400 SaO2% (BldA) [Mass fraction] 95 % Lynda Rasheed MD Work Phone: [facility] 09-25-2022 08:23-0400 Systolic blood pressure 88 mm[Hg] Lynda Rasheed MD Work Phone: [facility] 09-14-2022 11:20-0400 Body temperature 97.81 [degF] Triston Abraham MD Work Phone: [facility] 09-14-2022 11:20-0400 Diastolic blood pressure 96 mm[Hg] Triston Abraham MD Work Phone: [facility] 09-14-2022 11:20-0400 Heart rate 93 /min Triston Abraham MD Work Phone: [facility] 09-14-2022 11:20-0400 Respiratory rate 16 /min Triston Abraham MD Work Phone: [facility] 09-14-2022 11:20-0400 SaO2% (BldA) [Mass fraction] 93 % Triston Abraham MD Work Phone: [facility] 09-14-2022 11:20-0400 Systolic blood pressure 135 mm[Hg] Triston Abraham MD Work Phone: [facility] 09-12-2022 13:08-0400 Body height 177.8 cm Triston Abraham MD Work Phone: [facility] 09-10-2022 19:54-0400 Body mass index (BMI) [Ratio] 28.7 kg/m2 Triston Abraham MD Work Phone: [facility] 09-10-2022 19:54-0400 Body weight 90.72 kg Triston Abraham MD Work Phone: [facility] 08-01-2022 08:27-0400 Body height 177.8 cm Lynda Rasheed MD Work Phone: [facility] 08-01-2022 08:27-0400 Body mass index (BMI) [Ratio] 31.85 kg/m2 Lynda Rasheed MD Work Phone: [facility] 08-01-2022 08:27-0400 Body temperature 99 [degF] Lynda Rasheed MD Work Phone: [facility] 08-01-2022 08:27-0400 Body weight 100.7 kg Lynda Rasheed MD Work Phone: [facility] 08-01-2022 08:27-0400 Diastolic blood pressure 76 mm[Hg] Lynda Rasheed MD Work Phone: [facility] 08-01-2022 08:27-0400 Heart rate 93 /min Lynda Rasheed MD Work Phone: [facility] 08-01-2022 08:27-0400 SaO2% (BldA) [Mass fraction] 95 % Lynda Rasheed MD Work Phone: [facility] 08-01-2022 08:27-0400 Systolic blood pressure 105 mm[Hg] Lynda Rasheed MD Work Phone: [facility] 07-23-2022 10:17-0400 Diastolic blood pressure 94 mm[Hg] Arsenio Gombash DO Work Phone: [facility] 07-23-2022 10:17-0400 Heart rate 110 /min Arsenio Gombash DO Work Phone: [facility] 07-23-2022 10:17-0400 Respiratory rate 18 /min Arsenio Gombash DO Work Phone: [facility] 07-23-2022 10:17-0400 SaO2% (BldA) [Mass fraction] 96 % Arsenio Gombash DO Work Phone: [facility] 07-23-2022 10:17-0400 Systolic blood pressure 136 mm[Hg] Arsenio Gombash DO Work Phone: [facility] 07-23-2022 09:57-0400 Body temperature 99.81 [degF] Arsenio Gombash DO Work Phone: [facility] 07-23-2022 09:19-0400 Body height 177.8 cm Arsenio Gombash DO Work Phone: [facility] 07-23-2022 09:19-0400 Body mass index (BMI) [Ratio] 31.85 kg/m2 Arsenio Gombash DO Work Phone: [facility] 07-23-2022 09:19-0400 Body weight 100.7 kg Arsenio Gombash DO Work Phone: [facility] 06-12-2022 10:08-0400 Body height 180.3 cm Lynda Rasheed MD Work Phone: [facility] 06-12-2022 10:08-0400 Body mass index (BMI) [Ratio] 31.1 kg/m2 Lynda Rasheed MD Work Phone: [facility] 06-12-2022 10:08-0400 Body weight 101.15 kg Lynda Rasheed MD Work Phone: [facility] 06-12-2022 10:08-0400 Diastolic blood pressure 74 mm[Hg] Lynda Rasheed MD Work Phone: [facility] 06-12-2022 10:08-0400 Heart rate 116 /min Lynda Rasheed MD Work Phone: [facility] 06-12-2022 10:08-0400 SaO2% (BldA) [Mass fraction] 94 % Lynda Rasheed MD Work Phone: [facility] 06-12-2022 10:08-0400 Systolic blood pressure 118 mm[Hg] Lynda Rasheed MD Work Phone: [facility] 09-29-2021 08:21-0400 Body temperature 97.9 [degF] Dipesh Nesheim DO Work Phone: [facility] 09-29-2021 08:21-0400 Diastolic blood pressure 109 mm[Hg] Dipesh Nesheim DO Work Phone: [facility] 09-29-2021 08:21-0400 Heart rate 104 /min Dipesh Nesheim DO Work Phone: [facility] 09-29-2021 08:21-0400 Respiratory rate 16 /min Dipesh Nesheim DO Work Phone: [facility] 09-29-2021 08:21-0400 SaO2% (BldA) [Mass fraction] 94 % Dipesh Nesheim DO Work Phone: [facility] 09-29-2021 08:21-0400 Systolic blood pressure 158 mm[Hg] Dipesh Nesheim DO Work Phone: [facility] 09-27-2021 00:45-0400 Body height 180.3 cm Dipesh Nesheim DO Work Phone: [facility] 09-27-2021 00:45-0400 Body mass index (BMI) [Ratio] 28.41 kg/m2 Dipesh Nesheim DO Work Phone: [facility] 09-27-2021 00:45-0400 Body weight 92.4 kg Dipesh Nesheim DO Work Phone: [facility] 06-09-2021 15:07-0500 Body temperature 97.5 [degF] Catalino Diallo DO Work Phone: [facility] 06-09-2021 15:07-0500 Diastolic blood pressure 97 mm[Hg] Catalino Diallo DO Work Phone: [facility] 06-09-2021 15:07-0500 Heart rate 104 /min Catalino Yuaci DO Work Phone: [facility] 06-09-2021 15:07-0500 Respiratory rate 22 /min Catalino Diallo DO Work Phone: [facility] 06-09-2021 15:07-0500 SaO2% (BldA) [Mass fraction] 98 % Catalino Diallo DO Work Phone: [facility] 06-09-2021 15:07-0500 Systolic blood pressure 179 mm[Hg] Catalino Yuaci DO Work Phone: [facility] 06-08-2021 07:25-0500 Body height 180.3 cm Catalino Yuaci DO Work Phone: [facility] 06-08-2021 07:25-0500 Body mass index (BMI) [Ratio] 28.59 kg/m2 Catalino Yuaci DO Work Phone: [facility] 06-08-2021 07:25-0500 Body weight 92.99 kg Catalino Yuaci DO Work Phone: [facility] 04-06-2021 09:38-0500 Body temperature 98.1 [degF] Joon Sheikh MD Work Phone: [facility] 04-06-2021 09:38-0500 Diastolic blood pressure 108 mm[Hg] Joon Sheikh MD Work Phone: [facility] 04-06-2021 09:38-0500 Heart rate 100 /min Joon Sheikh MD Work Phone: [facility] 04-06-2021 09:38-0500 Respiratory rate 20 /min Joon Sheikh MD Work Phone: [facility] 04-06-2021 09:38-0500 SaO2% (BldA) [Mass fraction] 95 % Joon Sheikh MD Work Phone: [facility] 04-06-2021 09:38-0500 Systolic blood pressure 160 mm[Hg] Joon Sheikh MD Work Phone: [facility] 06-10-2020 09:21-0500 BP Diastolic 104 mm[Hg] Antonio Adusumilli [facility] Work Phone: 06-10-2020 09:21-0500 BP Systolic 136 mm[Hg] Antonio Adusumilli [facility] Work Phone: 06-10-2020 09:21-0500 Pulse (Heart Rate) 109 /min Antonio Adusumilli [facility] Work Phone: 06-10-2020 09:21-0500 Pulse Oximetry 96 % Antonio Adusumilli [facility] Work Phone: 06-10-2020 09:21-0500 Respiratory Rate 18 /min Antonio Adusumilli [facility] Work Phone: 06-10-2020 09:00-0500 Body Temperature 97.5 [degF] Antonio Adusumilli [facility] Work Phone: 06-10-2020 08:24-0500 BMI (Body Mass Index) 27.89 kg/m2 Antonio Adusumilli [facility] Work Phone: 06-10-2020 08:24-0500 Body weight 90.72 kg Antonio VASQUEZ Work Phone: 06-10-2020 08:24-0500 Height 180.3 cm Antonio VASQUEZ Work Phone: 11-08-2019 10:09-0400 Body Temperature 99.19 [degF] [facility] [place] [facility]-08-2019 10:09-0400 BP Diastolic 99 mm[Hg] Harjinder Genlot [facility] [place] 11-08-2019 10:09-0400 BP Systolic 140 mm[Hg] HarjinderTubular Labs [facility] [place] 11-08-2019 10:09-0400 Pulse (Heart Rate) 86 /min [facility] [place] 11-08-2019 10:09-0400 Pulse Oximetry 96 % Harjinder [employer] [facility], [place] 11-08-2019 10:09-0400 Respiratory Rate 16 /min Harjinder [employer] [facility], [place] 09-02-2019 11:34-0400 Body Temperature 97.2 [degF] Lynda Combinent Biomedical SystemsterryZumi NetworksC[facility], [place] 09-02-2019 11:34-0400 BP Diastolic 92 mm[Hg] Lynda Combinent [employer] SystemsterryK[employer] [place] , [place] 09-02-2019 11:34-0400 BP Systolic 125 mm[Hg] LyndaTB BiosciencesterryK[employer] Learning [employer] [place] , [place] 09-02-2019 11:34-0400 Pulse (Heart Rate) 107 /min Lynda BuiK2 Learning [facility] [place] 09-02-2019 11:34-0400 Pulse Oximetry 94 % Lynda Com[employer] SystemsterryZ[employer] , [place] 09-02-2019 11:34-0400 Respiratory Rate 20 /min Lynda BuiK2 LearningAtrium Health Union WestBokeeCED[facility], [place] 08-31-2019 17:13-0400 BMI (Body Mass Index) 29.29 kg/m2 Lynda Combinent Biomedical SystemsterryCompanyLoopkameron [facility]osenseCED[facility], [place] 08-31-2019 17:13-0400 Body weight 95.25 kg Lynda Rasheed [facility], [place] 08-31-2019 17:13-0400 Height 180.3 cm Lynda Rasheed [facility], [place] 06-05-2019 09:01-0500 Body Temperature 97.7 [degF] Catalino Wilcox [facility], [place] 06-05-2019 09:01-0500 BP Diastolic 104 mm[Hg] Catalino Martinezchristianacareaiyana [facility], [place] 06-05-2019 09:01-0500 BP Systolic 155 mm[Hg] Catalino Martinezchristianacareaiyana [facility], [place] 06-05-2019 09:01-0500 Pulse (Heart Rate) 100 /min Catalino Wilcox [facility], [place] 06-05-2019 09:01-0500 Pulse Oximetry 95 % Catalino Martinezchristianacareaiyana [facility], [place] 06-05-2019 09:01-0500 Respiratory Rate 12 /min Catalino Martinezchristianacareaiyana [facility], [place] 03-08-2019 13:36-0500 Pulse (Heart Rate) 102 /min José Miguel Talbot [facility], [place] 03-08-2019 13:36-0500 Pulse Oximetry 96 % José Miguel Talbot [facility] , [place] 03-08-2019 13:36-0500 Respiratory Rate 14 /min José Miguel Talbot [facility], [place] 03-08-2019 13:09-0500 Body Temperature 98.49 [degF] José Miguel Talbot [facility], [place] 03-08-2019 13:09-0500 BP Diastolic 95 mm[Hg] José [facility] [place] 03-08-2019 13:09-0500 BP Systolic 137 mm[Hg] José Miguel [place] Encounters Encounter Date Encounter Type Care Provider Facility Start: 08-14-2024 End: 09-01-2024 Telephone encounter Lynda Rasheed MD Work Phone: [facility] Comment on above: Med Refill Start: 08-14-2024 End: 08-14-2024 Office outpatient visit 25 minutes Lynda Rasheed MD Work Phone: [facility] Comment on above: Screening for colon cancer (Primary Dx); Psoriasiform seborrheic dermatitis; Elevated liver enzymes; Neuropathy; Herpes zoster with other complication; Shingles (herpes zoster) polyneuropathy Start: 08-14-2024 End: 08-14-2024 ambulatory LYNDA RASHEED [facility] Start: 08-13-2024 End: 08-13-2024 Subsequent hospital visit by physician Luis Branch MD Work Phone: [facility] Start: 08-12-2024 End: 08-13-2024 Refill Rashad Gastelum DO Work Phone: [facility] Start: 08-10-2024 End: 08-10-2024 Emergency department patient visit Catalino Waddell MD Work Phone: [facility] ED Comment on above: Acute pain associate d with herpes zoster (Primary Dx) Start: 08-03-2024 End: 08-06-2024 Evaluation and management of inpatient Matthewyasmani Demacro DO Work Phone: [facility] Comment on above: Alcohol withdrawal s yndrome without complication (HCC) (Primary Dx); Alcohol dependence with inpatient treatment (HCC); Herpes zoster without complication; Shingles (herpes zoster) polyneuropathy Start: 07-01-2024 End: 07-01-2024 Emergency department patient visit Goyo Melara MD Work Phone: [facility] Comment on above: Subcutaneous hematom a (Primary Dx); Contusion of dorsum of foot Start: 06-25-2024 End: 07-16-2024 Telephone encounter Yasemin Goins CNP Work Phone: [facility] [place] Start: 06-22-2024 End: 06-23-2024 Refill Grayson Kessler PA-C Work Phone: [facility] Comment on above: Psoriasiform seborrh eic dermatitis; Elevated liver enzymes Start: 06-16-2024 End: 06-16-2024 Office outpatient visit 25 minutes [facility] Comment on above: Elevated LFTs (Prima ry Dx); Lombardo esophagus with esophagitis; Elevated liver enzymes; Cigarette smoker; Severe alcohol use disorder (HCC); Screening for colon cancer; Lumbar back pain Start: 06-16-2024 End: 06-16-2024 ambulatory [facility] Start: 06-11-2024 End: 06-11-2024 Subsequent hospital visit by physician Myra Darden MD Work Phone: [facility] CT Comment on above: Pulmonary nodule Start: 06-11-2024 End: 06-11-2024 ambulatory [facility] Start: 06-08-2024 End: 06-08-2024 Telephone encounter Lynda Rasheed MD Work Phone: [facility] Clinical Communication Start: 06-03-2024 End: 06-03-2024 Telephone encounter Kristin Goins CNP Work Phone: [facility] [place] Comment on above: Test Scheduling Start: 06-02-2024 End: 06-04-2024 Evaluation and management of inpatient Catalino Diallo DO Work Phone: [facility] Det[facility] Comment on above: Alcohol withdrawal w ith inpatient treatment, uncomplicated (HCC) (Primary Dx); Alcohol use disorder; Severe alcohol use disorder (HCC) Start: 06-01-2024 End: 06-02-2024 Refill Lynda Rasheed MD Work Phone: [facility] Comment on above: Psoriasiform seborrh eic dermatitis; Elevated liver enzymes Start: 05-25-2024 End: 05-25-2024 Emergency department patient visit Goyo Melara MD Work Phone: [facility] Comment on above: Closed head injury, initial encounter (Primary Dx); Alcoholic intoxication without complication (CMS/HCC) (HCC) Start: 05-23-2024 End: 05-26-2024 Telephone encounter Lynda Rasheed MD Work Phone: [facility] Clinical Communication Comment on above: Test Scheduling Start: 05-21-2024 End: 05-21-2024 Telephone encounter Mp Dempsey MD Work Phone: [facility]rology [facility] [place] Start: 05-20-2024 End: 05-20-2024 ambulatory [facility] Start: 05-20-2024 End: 05-20-2024 Transitional care manage srvc 14 day discharge Lynda Rasheed MD Work Phone: [facility] [place] Comment on above: Alcohol abuse (Prima ry Dx); Psoriasiform seborrheic dermatitis; Elevated liver enzymes; Screening for colon cancer; Elevated LFTs; ED (erectile dysfunction) of non-organic origin; Urinary frequency; Pulmonary nodule; Lombardo esophagus with esophagitis Start: 05-14-2024 End: 05-14-2024 Subsequent hospital visit by physician Luis Branch MD Work Phone: [facility] Start: 05-14-2024 End: 05-14-2024 ambulatory [facility] Start: 05-07-2024 End: 05-10-2024 Evaluation and management of inpatient Johnny Hamilton DO Work Phone: [facility] Comment on above: Alcohol withdrawal s yndrome with complication, with unspecified complication (HCC) (Primary Dx); Alcohol use disorder Start: 04-09-2024 End: 04-12-2024 Evaluation and management of inpatient Mejgon Joao Whiteside DO Work Phone: [facility] 2 Comment on above: Alcoholic intoxicati on without complication (CMS/HCC) (HCC) (Primary Dx) Start: 02-28-2024 End: 02-28-2024 ambulatory [facility] Start: 02-28-2024 End: 02-28-2024 Office outpatient new 45 minutes Myra Darden MD Work Phone: [facility] [place] Comment on above: Pulmonary emphysema, unspecified emphysema type (HCC) (Primary Dx); Pulmonary nodule; Cigarette nicotine dependence with other nicotine-induced disorder; Alcohol abuse Start: 02-18-2024 End: 02-18-2024 Documentation procedure Fadia Hartley [facility] [place] Comment on above: Care Coordination (L kaitlin Nodule Review Conference Recommendations 02/18/24) Start: 02-13-2024 End: 02-14-2024 Telephone encounter Fadia Hartley [facility] [place] Comment on above: Care Coordination (L kaitlin Rads 4A Lung Screening CT- Expedited lung nodule clinic eval recommended) Start: 02-11-2024 End: 02-11-2024 Subsequent hospital visit by physician Lynda Rasheed MD Work Phone: [facility] CT Comment on above: Current smoker Start: 02-11-2024 End: 02-11-2024 ambulatory [facility] Start: 02-06-2024 End: 02-06-2024 Refill Lynda Rasheed MD Work Phone: [facility] Comment on above: Arrived Start: 02-05-2024 End: 02-05-2024 Office outpatient visit 25 minutes Lynda Rasheed MD Work Phone: [facility] Comment on above: Screening PSA (prost ate specific antigen) (Primary Dx); Psoriasiform seborrheic dermatitis; Elevated liver enzymes; Screening for colon cancer; Current smoker Start: 02-05-2024 End: 02-05-2024 ambulatory [facility] Start: 02-03-2024 End: 02-03-2024 Subsequent hospital visit by physician Luis Branch MD Work Phone: [facility] Comment on above: Arrived Start: 01-28-2024 End: 01-28-2024 ambulatory [facility] Start: 01-28-2024 End: 01-28-2024 Subsequent hospital visit by physician Luis Branch MD Work Phone: [facility] Comment on above: Severe alcohol use d isorder (HCC) Start: 01-20-2024 End: 01-24-2024 Evaluation and management of inpatient Triston Oskvarek MD Work Phone: [facility] Comment on above: Alcohol abuse (Prima ry Dx) Start: 12-11-2023 End: 12-11-2023 Subsequent hospital visit by physician Yakov Owen MD Work Phone: [facility] Comment on above: Arrived Start: 12-03-2023 End: 12-03-2023 Refill Lynda Rasheed MD Work Phone: [facility] [place] Comment on above: Chronic left shoulde r pain Start: 11-27-2023 End: 11-30-2023 Evaluation and management of inpatient Steve Demarco MD Work Phone: [facility] Medical Surgical Unit MSU 4S Comment on above: Alcohol withdrawal s yndrome with perceptual disturbance (HCC) (Primary Dx) Start: 08-26-2023 Refill Tiki Clark ett SCRAPER OPERATOR - WAITSTAFF CAPTAIN Work Phone: [facility] Start: 08-01-2023 Refill Lynda pedersen MD Work Phone: [facility] [place] Comment on above: Chronic left shoulde r pain Start: 07-27-2023 End: 07-31-2023 Evaluation and management of inpatient Triston Abraham MD Work Phone: [facility] Comment on above: Alcohol withdrawal s yndrome without complication (HCC) (Primary Dx); Chronic left shoulder pain Start: 07-19-2023 Refill Lynda pedersen MD Work Phone: [facility] [place] Comment on above: Chronic left shoulde r pain Start: 07-08-2023 End: 07-11-2023 Evaluation and management of inpatient Catalino Mujica MD Work Phone: [facility] Comment on above: Alcohol abuse (Prima ry Dx) Start: 06-26-2023 Refill Lynda pedersen MD Work Phone: [facility] [place] Comment on above: Psoriasiform seborrh eic dermatitis Start: 06-15-2023 Telephone encounter Karolina Krueger RN [facility] ED Start: 06-13-2023 Telephone encounter Catalino Watts [facility] Start: 06-06-2023 End: 06-06-2023 Subsequent hospital visit by physician Dori Franco MD Work Phone: [facility] Comment on above: No Show Start: 05-20-2023 End: 05-23-2023 Evaluation and management of inpatient Scooter Luna MD Work Phone: [facility] Medical Surgical Unit MSU 1E Comment on above: Alcohol withdrawal s yndrome, uncomplicated (HCC) (Primary Dx) Start: 04-24-2023 Refill Lynda pedersen MD Work Phone: [facility] Comment on above: Chronic left shoulde r pain Start: 03-19-2023 End: 03-19-2023 Subsequent hospital visit by physician [facility] [employer] [facility] Radiology Comment on above: Arrived Start: 03-19-2023 End: 03-19-2023 Emergency department patient visit Catalino Waddell MD Work Phone: [facility] ED Comment on above: Contusion of left mi ddle finger without damage to nail, initial encounter (Primary Dx) Start: 02-18-2023 End: 02-18-2023 Emergency department patient visit Harjinder Darnell MD Work Phone: [facility] ED Comment on above: Dental abscess (Prim hali Dx) Start: 02-17-2023 End: 02-17-2023 Emergency department patient visit Harjinder Darnell MD Work Phone: [facility] ED Comment on above: Pain, dental (Primar y Dx) Start: 02-08-2023 End: 02-11-2023 Evaluation and management of inpatient Anusha Kothari MD Work Phone: [facility] Det[facility] 4E Comment on above: Alcohol withdrawal s yndrome without complication (HCC) (Primary Dx); Alcoholism (CMS/HCC) (HCC) Start: 01-28-2023 Refill Lynda pedersen MD Work Phone: [facility] [place] Comment on above: Chronic left shoulde r pain Start: 12-26-2022 End: 12-26-2022 Office outpatient visit 25 minutes Lynda Rasheed MD Work Phone: [facility] Comment on above: Screening for colon cancer (Primary Dx); Lombardo's esophagus determined by endoscopy; Psoriasiform seborrheic dermatitis; Alcohol use disorder, severe (HCC); Lumbar back pain with radiculopathy affecting lower extremity; Cigarette smoker Start: 12-07-2022 Refill Lynda pedersen MD Work Phone: [facility] Start: 11-01-2022 End: 11-01-2022 ambulatory Lynda Rasheed MD Work Phone: [facility] Laboratory Comment on above: Arrived Hyperglycemia, unspe cified (Primary Dx); Other specified abnormal findings of blood chemistry Start: 10-09-2022 End: 10-09-2022 Office outpatient visit 25 minutes Papito Hood MD Work Phone: [facility] Comment on above: Alcohol use disorder , severe (HCC) (Primary Dx); Alcohol withdrawal syndrome with complication (HCC); Encounter for monitoring naltrexone therapy Start: 10-01-2022 Telephone encounter Lynda fish MD Work Phone: [facility] [place] Comment on above: Results Start: 09-29-2022 End: 09-29-2022 ambulatory Lynda Rasheed MD Work Phone: [facility] Laboratory Comment on above: Arrived Abnormal levels of o ther serum enzymes (Primary Dx) Start: 09-25-2022 End: 09-25-2022 Office outpatient visit 25 minutes Lynda Rasheed MD Work Phone: [facility] [place] Comment on above: Chronic left shoulde r pain (Primary Dx); Elevated liver enzymes; Psoriasis; Screening for colon cancer; Alcohol abuse Chronic left shoulde r pain (Primary Dx); Elevated liver enzymes; Psoriasiform seborrheic dermatitis; Screening for colon cancer; Alcohol abuse Start: 09-22-2022 Refill Lynda pedersen MD Work Phone: [facility] [place] Comment on above: Chronic left shoulde r pain Start: 09-14-2022 Refill Lynda pedersen MD Work Phone: [facility] [place] Comment on above: Elevated liver enzym es Start: 09-10-2022 End: 09-14-2022 Evaluation and management of inpatient Triston Abraham MD Work Phone: [facility] Comment on above: Alcohol withdrawal s yndrome without complication (HCC) (Primary Dx); Alcohol use disorder Start: 08-01-2022 End: 08-01-2022 Office outpatient visit 25 minutes Lynda Rasheed MD Work Phone: [facility] [place] Comment on above: Uncomplicated alcoho l dependence (HCC) (Primary Dx); Elevated liver enzymes; Abnormal EKG; SOB (shortness of breath); Lombardo's esophagus with dysplasia; Screening for colon cancer; ED (erectile dysfunction) of non-organic origin Start: 07-21-2022 End: 07-23-2022 Evaluation and management of inpatient Arsenio Villalta DO Work Phone: [facility] 2E TELEMETRY Comment on above: Hematemesis with rubén sea (Primary Dx); Alcohol withdrawal syndrome without complication (HCC) Start: 07-16-2022 Refill Lynda pedersen MD Work Phone: [facility] Comment on above: Chronic left shoulde r pain Start: 07-14-2022 Refill Lynda pedersen MD Work Phone: [facility] [place] Comment on above: Chronic left shoulde r pain; Elevated liver enzymes; Psoriasis Start: 07-11-2022 Telephone encounter Lynda fish MD Work Phone: [facility] [place] Comment on above: Results Start: 07-09-2022 End: 07-09-2022 ambulatory Lynda Rasheed MD Work Phone: [facility] Laboratory Start: 07-09-2022 End: 07-09-2022 Subsequent hospital visit by physician Lynda Rasheed MD Work Phone: [facility] Radiology Comment on above: Low back pain, unspe cified; Pain in left shoulder; Other chronic pain; Pain in right shoulder Abnormal levels of o ther serum enzymes (Primary Dx) Low back pain, unspe cified (Primary Dx); Pain in left shoulder; Other chronic pain; Pain in right shoulder Start: 06-12-2022 Telephone encounter Rosalina HOOKS Work Phone: [facility]at[facility] Start: 06-12-2022 End: 06-12-2022 Office outpatient visit 25 minutes Lynda Rasheed MD Work Phone: [facility] Comment on above: Elevated liver enzym es (Primary Dx); Chronic left shoulder pain; Psoriasis; Lumbar back pain; Screening for colon cancer; Chronic pain of both shoulders; Alcohol abuse Start: 09-26-2021 End: 09-29-2021 Evaluation and management of inpatient Dipesh Beckman DO Work Phone: [facility] 2E TELEMETRY Comment on above: Hematemesis with rubén sea (Primary Dx); Alcohol abuse; Lactic acid acidosis Start: 06-06-2021 End: 06-09-2021 Evaluation and management of inpatient Catalino Diallo DO Work Phone: [facility] Comment on above: UGIB (upper gastroin testinal bleed) (Primary Dx); Acute alcoholic intoxication with complication (HCC) Start: 04-06-2021 End: 04-06-2021 Emergency department patient visit Joon Sheikh MD Work Phone: [facility] Comment on above: Strain of lumbar reg ion, initial encounter (Primary Dx) Start: 11-18-2020 End: 11-18-2020 Subsequent hospital visit by physician Lynda Rasheed MD Work Phone: [facility] Comment on above: Chronic cough Start: 09-01-2020 End: 09-01-2020 Subsequent hospital visit by physician Lynda Rasheed MD Work Phone: [facility] Laboratory Comment on above: Colon cancer screeni ng; Elevated LFTs Start: 06-09-2020 End: 06-10-2020 Emergency department patient visit Antonio Mauro Work Phone: [facility] 2E TELEMETRY Comment on above: Hematemesis with rubén sea (Primary Dx); Acute alcoholic intoxication without complication (HCC); Tachycardia; Elevated lactic acid level Start: 11-08-2019 End: 11-08-2019 Emergency department patient visit Harjinder Darnell Work Phone: [facility] ED Comment on above: Acute pharyngitis, u nspecified etiology (Primary Dx) Start: 08-31-2019 Patient encounter procedure Lynda Rasheed [facility] [place] Start: 08-19-2019 Patient encounter procedure Lynda Combinent Biomedical SystemsjuaquinAnagearchet [facility] [place] Start: 08-19-2019 End: 08-19-2019 Office outpatient visit 25 minutes Lynda Rasheed Work Phone: [facility] Comment on above: Localized swelling, mass and lump, neck (Primary Dx) Start: 06-05-2019 Patient encounter procedure Lynda Rasheed [facility] [place] Start: 06-05-2019 End: 06-05-2019 Emergency department patient visit Catalino Wilcox Work Phone: [facility] Comment on above: Acute exacerbation o f chronic low back pain (Primary Dx); Sciatica of left side Start: 03-08-2019 End: 03-08-2019 Emergency department patient visit José Miguel Talbot Work Phone: [facility] ED Comment on above: Strain of lumbar reg ion, initial encounter (Primary Dx) Start: 02-14-2019 End: 02-14-2019 Subsequent hospital visit by physician Lynda Rasheed Work Phone: [facility] Laboratory Comment on above: Mixed hyperlipidemia ; Eczema, unspecified type; Cough Start: 07-17-2017 End: 07-20-2017 Ambulatory Ben Jeremy Facility:[facility] Start: 07-17-2017 End: 07-20-2017 Evaluation and management of inpatient Salma Blanco [facility] Start: 03-07-2017 Ambulatory RESPIRATORY SUPPORT TECHNICIAN-C Estella Fletcher Facility:[facility] Start: 03-07-2017 End: 03-10-2017 Evaluation and management of inpatient [place] Facility[facility] Procedures Date Procedure Procedure Detail Performing Clinician Start: 08-14-2024 Follow-up visit BRYAN RODRIGUEZ Start: 08-06-2024 Comprehensive metabolic panel Jonatan rachel MD Work Phone: Start: 08-04-2024 Carbohydrate deficient transferrin Jonatan Mckeon MD Work Phone: Start: 08-03-2024 Ecg routine ecg w/least 12 lds trcg only w/o i&r Debby Richardsinger PA-C Work Phone: Start: 08-03-2024 Comprehensive metabolic panel Debby Lam PA-C Work Phone: Start: 08-03-2024 End: 08-03-2024 Drug test def 1-7 classes Debby Richardsing er PA-C Work Phone: Start: 08-03-2024 SARS-CoV-2 (COVID-19) Ag [Presence] in Respiratory specimen by Rapid immunoassay Debby Richardsinger PA-C Work Phone: Start: 07-01-2024 Radiologic examination foot 2 views Goyo Melara MD Work Phone: Start: 06-16-2024 Follow-up visit BRYAN RODRIGUEZ Start: 06-02-2024 Comprehensive metabolic panel Shelly emerson SCRAPER OPERATOR - WAITSTAFF CAPTAIN Work Phone: Start: 06-02-2024 End: 06-02-2024 Drug test def 1-7 classes Shelly Clarke SCRAPER OPERATOR - WAITSTAFF CAPTAIN Work Phone: Start: 06-02-2024 SARS-CoV-2 (COVID-19) Ag [Presence] in Respiratory specimen by Rapid immunoassay Shelly Clarke SCRAPER OPERATOR - WAITSTAFF CAPTAIN Work Phone: Start: 05-25-2024 Ct cervical spine w/o contrast material Goyo Melara MD Work Phone: Start: 05-25-2024 Ct head/brain w/o contrast material Goyo Melara MD Work Phone: Start: 05-20-2024 Follow-up visit BRYAN MERLINBRITANY Start: 05-07-2024 Comprehensive metabolic panel Shelly emerson [employer] Work Phone: Start: 05-07-2024 End: 05-07-2024 Drug test def 1-7 classes Shelly Clarke SCRAPER OPERATOR [employer] Work Phone: Start: 05-07-2024 SARS-CoV-2 (COVID-19) Ag [Presence] in Respiratory specimen by Rapid immunoassay Shelly Clarke [employer] Work Phone: Start: 04-11-2024 Comprehensive metabolic panel Luis sánchez MD Work Phone: Start: 04-09-2024 SARS-CoV-2 (COVID-19) Ag [Presence] in Respiratory specimen by Rapid immunoassay Kolby Shepherd Miesha DO Work Phone: Start: 04-09-2024 UNCONFIRMED DRUG SCREEN odilon Shepherd Miesha DO Work Phone: Start: 04-09-2024 Urinalysis complete panel - Urine Kolby Shepherd Miesha DO Work Phone: Start: 04-09-2024 Urnls dip stick/tablet rgnt auto w/o microscopy Meodilon Shepherd Miesha DO Work Phone: Start: 04-09-2024 Comprehensive metabolic panel Kolby Shepherd J oya DO Work Phone: Start: 04-09-2024 End: 04-09-2024 Drug test def 1-7 classes Kolby Shepherd Miesha DO Work Phone: Start: 04-09-2024 Ecg routine ecg w/least 12 lds i&r only Meodilon Shepherd Miesha DO Work Phone: Start: 02-28-2024 Follow-up visit BRYAN RODRIGUEZ Start: 02-05-2024 Follow-up visit BRYAN RODRIGUEZ Start: 01-22-2024 Comprehensive metabolic panel Soraida zuniga MD Work Phone: Start: 01-20-2024 SARS-CoV-2 (COVID-19) Ag [Presence] in Respiratory specimen by Rapid immunoassay Triston Abraham MD Work Phone: Start: 01-20-2024 Ecg routine ecg w/least 12 lds trcg only w/o i&r Dani Mike DO Work Phone: Start: 01-20-2024 Comprehensive metabolic panel Triston poole MD Work Phone: Start: 01-20-2024 End: 01-20-2024 Drug test def 1-7 classes Triston browning MD Work Phone: Start: 11-28-2023 Basic metabolic panel calcium total Shelly Cruz MD Work Phone: Start: 11-28-2023 Ecg routine ecg w/least 12 lds trcg only w/o i&r Val Fragoso MD Work Phone: Start: 11-27-2023 End: 11-27-2023 Comprehensive metabolic panel Shelly emerson SCRAPER OPERATOR - WAITSTAFF CAPTAIN Work Phone: Start: 11-27-2023 End: 11-27-2023 Drug test def 1-7 classes Shelly Clarke SCRAPER OPERATOR - WAITSTAFF CAPTAIN Work Phone: Start: 11-27-2023 SARS-CoV-2 (COVID-19) Ag [Presence] in Respiratory specimen by Rapid immunoassay Shelly Clarke SCRAPER OPERATOR - WAITSTAFF CAPTAIN Work Phone: Start: 07-30-2023 OXYGEN THERAPY Mainor M Fredy DO Work Phone: Start: 07-30-2023 Drug screen quantitative phenobarbital Tiki Ponce SCRAPER OPERATOR - RESPIRATORY SUPPORT TECHNICIAN Work Phone: Start: 07-29-2023 OXYGEN THERAPY Mainor M Fredy DO Work Phone: Start: 07-28-2023 OXYGEN THERAPY Mainor M Fredy DO Work Phone: Start: 07-28-2023 OXYGEN THERAPY Mainor M Fredy DO Work Phone: Start: 07-27-2023 Ct abdomen & pelvis w/contrast material Triston Abraham MD Work Phone: Start: 07-27-2023 SARS-CoV-2 (COVID-19) Ag [Presence] in Respiratory specimen by Rapid immunoassay Triston Abraham MD Work Phone: Start: 07-27-2023 Basic metabolic panel calcium total Triston Abraham MD Work Phone: Start: 07-27-2023 End: 07-27-2023 Drug test def 1-7 classes Triston browning MD Work Phone: Start: 07-27-2023 Ecg routine ecg w/least 12 lds trcg only w/o i&r Triston Abraham MD Work Phone: Start: 07-08-2023 SARS-CoV-2 (COVID-19) Ag [Presence] in Respiratory specimen by Rapid immunoassay Mehul Galindo MD Work Phone: Start: 07-08-2023 Comprehensive metabolic panel Mehul morrow MD Work Phone: Start: 07-08-2023 End: 07-08-2023 Drug test def 1-7 classes Mehul talbot MD Work Phone: Start: 07-08-2023 Ecg routine ecg w/least 12 lds trcg only w/o i&r Mehul Galindo MD Work Phone: Start: 05-20-2023 ETHYL GLUCURONIDE SCREEN, URINE Bryan Rodriguez MD Work Phone: Start: 05-20-2023 MEDICATION ASSISTED TREATMENT PANEL Eda Berry SCRAPER OPERATOR - WAITSTAFF CAPTAIN Work Phone: Start: 05-20-2023 Urinalysis complete panel - Urine Scooter Luna MD Work Phone: Start: 05-20-2023 Urnls dip stick/tablet rgnt auto w/o microscopy Scooter Luna MD Work Phone: Start: 05-20-2023 Ct abdomen & pelvis w/contrast material Scooter Luna MD Work Phone: Start: 05-20-2023 Blood gases any combination ph pco2 po2 co2 hco3 Scooter Luna MD Work Phone: Start: 05-20-2023 Ecg routine ecg w/least 12 lds trcg only w/o i&r Scooter Luna MD Work Phone: Start: 05-20-2023 Comprehensive metabolic panel Scooter Luna MD Work Phone: Start: 05-20-2023 Radiologic exam chest single view Scooter Luna MD Work Phone: Start: 03-19-2023 Radex hand minimum 3 views Catalino carrion MD Work Phone: Start: 02-11-2023 Hepatic function panel Tiki Ponce SCRAPER OPERATOR - RESPIRATORY SUPPORT TECHNICIAN Work Phone: Start: 02-10-2023 Hepatic function panel Tiki Ponce SCRAPER OPERATOR - RESPIRATORY SUPPORT TECHNICIAN Work Phone: Start: 02-08-2023 Urnls dip stick/tablet rgnt auto w/o microscopy Anusha Kothari MD Work Phone: Start: 02-08-2023 Comprehensive metabolic panel Anusha benavides MD Work Phone: Start: 02-08-2023 End: 02-08-2023 Drug test def 1-7 classes Anusha Marshall Work Phone: Start: 02-08-2023 SARS-COV-2, FLU A/B, AND RSV COMBO Anusha Kothari MD Work Phone: Start: 11-01-2022 Cyanocobalamin vitamin b-12 Lynda cifuentes MD Work Phone: Start: 09-29-2022 Acute hepatitis panel Lynda Marshall Work Phone: Start: 09-29-2022 Comprehensive metabolic panel Lynda fish MD Work Phone: Start: 09-11-2022 Ecg routine ecg w/least 12 lds trcg only w/o i&r Robyn Edmond SCRAPER OPERATOR - WAITSTAFF CAPTAIN Work Phone: Start: 09-10-2022 Ct abdomen & pelvis w/o contrast material Zulma Bergeron MD Work Phone: Start: 09-10-2022 Sars-cov-2 detection by dna/rna Triston Abraham MD Work Phone: Start: 09-10-2022 Comprehensive metabolic panel Zulma franco MD Work Phone: Start: 09-10-2022 End: 09-10-2022 Drug test def 1-7 classes Zulma yu MD Work Phone: Start: 07-23-2022 Comprehensive metabolic panel Redd alva MD Work Phone: Start: 07-22-2022 Comprehensive metabolic panel Redd alva MD Work Phone: Start: 07-22-2022 Blood count complete automated Redd Teixeira MD Work Phone: Start: 07-21-2022 Ct abdomen & pelvis w/contrast material Arsenio A Gombash DO Work Phone: Start: 07-21-2022 Ecg routine ecg w/least 12 lds trcg only w/o i&r Arsenio A Gombash DO Work Phone: Start: 07-21-2022 Urinalysis complete panel - Urine Arsenio A Gombash DO Work Phone: Start: 07-21-2022 Urnls dip stick/tablet rgnt auto w/o microscopy Arsenio A Gombash DO Work Phone: Start: 07-21-2022 SARS-COV-2, FLU A/B, AND RSV COMBO Arsenio A Gombash DO Work Phone: Start: 07-21-2022 Comprehensive metabolic panel Arsenio Farr Go mbash DO Work Phone: Start: 07-21-2022 End: 07-21-2022 Drug test def 1-7 classes Arsenio Sanchezas h DO Work Phone: Start: 07-21-2022 Thyrotropin [Units/volume] in Serum or Plasma Redd Teixeira MD Work Phone: Start: 07-09-2022 Radex shoulder complete minimum 2 views Lynda Rasheed MD Work Phone: Start: 07-09-2022 Comprehensive metabolic panel Lynda fish MD Work Phone: Start: 07-09-2022 Lipid panel Lynda Rasheed MD Work Phone: Start: 07-09-2022 Lipid 1996 panel - Serum or Plasma Lynda Rasheed MD Work Phone: Start: 09-29-2021 Comprehensive metabolic panel Redd alva MD Work Phone: Start: 09-29-2021 Hepatic function panel Katherine Gotti MD Work Phone: Start: 09-27-2021 ENDOSCOPY REPORT Physician Generic Start: 09-27-2021 Assay of lactate Sherin Salcido MD Work Phone: Start: 09-27-2021 Assay of ferritin Sherin Salcido MD Work Phone: Start: 09-26-2021 Antibody screen Dipesh Nesheim DO Work Phone: Start: 09-26-2021 Assay of ethanol Dipesh G Nesheim DO Work Phone: Start: 09-26-2021 Blood typing serologic abo Dpiesh G Nesh eim DO Work Phone: Start: 09-26-2021 Comprehensive metabolic panel Dipesh G N esheim DO Work Phone: Start: 09-26-2021 Radiologic exam chest single view Dipesh Beckman DO Work Phone: Start: 06-08-2021 ENDOSCOPY REPORT Physician Generic Start: 06-08-2021 Level iv surg pathology gross&microscopic exam Jazmín Wei MD Work Phone: Start: 06-08-2021 Basic metabolic panel calcium total Rob M Jessica DO Work Phone: Start: 06-07-2021 Assay of lactate Hany tang MD Work Phone: Start: 06-07-2021 Assay of lactate Catalino Bass MD Work Phone: Start: 06-06-2021 Computed tomography of abdomen and pelvis with contrast Anton Pallaci DO Work Phone: Start: 06-06-2021 Antibody screen Catalino Imani DO Work Phone: Start: 06-06-2021 ADD ON LAB TEST Deep Demarco DO Work Phone: Start: 06-06-2021 Assay of ethanol Catalino Diallo DO Work Phone: Start: 06-06-2021 Blood typing serologic abo Catalino Lebron Jeovanny heydi DO Work Phone: Start: 06-06-2021 Comprehensive metabolic panel Catalino Diallo DO Work Phone: Start: 06-06-2021 Ecg routine ecg w/least 12 lds w/i&r Catalino Diallo DO Work Phone: Start: 04-06-2021 Urnls dip stick/tablet rgnt auto w/o microscopy Joon Sheikh MD Work Phone: Start: 11-18-2020 Radiologic exam chest 2 views Lynda fish MD Work Phone: Start: 09-01-2020 Comprehensive metabolic panel Lynda fish MD Work Phone: Start: 09-01-2020 Lipid panel Lynda Rasheed MD Work Phone: Start: 09-01-2020 Lipid 1996 panel - Serum or Plasma Rosalina HOOKS Work Phone: Start: 06-10-2020 HM ENDOSCOPY REPORT 3m Scanning Start: 06-10-2020 BASIC METABOLIC PANEL W/ REFLEX TO MG FOR LOW K Imola K Osapay Work Phone: Start: 06-10-2020 Blood count complete auto&auto difrntl wbc Imola K Osapay Work Phone: Start: 06-10-2020 Hepatic function panel Imola K Osapay Work Phone: Start: 06-10-2020 Iron binding capacity Imola K Osapay Work Phone: Start: 06-09-2020 Assay of folic acid serum Imola K Osapay Work Phone: Start: 06-09-2020 Cyanocobalamin vitamin b-12 Imola K Osap ay Work Phone: Start: 06-09-2020 Prothrombin time Imola K Osapay Work Phone: Start: 06-09-2020 Thromboplastin time partial plasma/whole blood Imola K Osapay Work Phone: Start: 06-09-2020 Assay of lactate Antonio Adusumilli Work Phone: Start: 06-09-2020 Radiologic exam chest single view Antonio Adusumilli Work Phone: Start: 06-09-2020 Assay of ethanol Antonio Adusumilli Work Phone: Start: 06-09-2020 Assay of lipase Antonio Adusumilli Work Phone: Start: 06-09-2020 Blood count complete auto&auto difrntl wbc Antonio Adusumilli Work Phone: Start: 06-09-2020 Comprehensive metabolic panel Antonio Adus umilli Work Phone: Start: 06-09-2020 Ecg routine ecg w/least 12 lds w/i&r Antonio Mauro Work Phone: Start: 08-31-2019 Assay of ethanol Shelly Clarke Work Phone: Start: 08-31-2019 Assay of lipase Shelly Clarke Work Phone: Start: 08-31-2019 Blood count complete auto&auto difrntl wbc Shelly Clarke Work Phone: Start: 08-31-2019 Comprehensive metabolic panel Shelly emerson Work Phone: Start: 08-31-2019 Drug screen class list a Shelly Clarke Work Phone: Start: 02-14-2019 Blood count complete auto&auto difrntl wbc Lynda Kathya Work Phone: Start: 02-14-2019 Comprehensive metabolic panel Lynda Malachi fish Work Phone: Start: 02-14-2019 Lipid panel Lynda Haotiararc Work Phone: Start: 02-13-2018 Electrocardiogram Plan of Treatment Date Care Activity Detail Author Start: 11-14-2042 RSV Immunization for Adults (1 - 1-dose 75+ series) RSV Immunization for Adults (1 - 1-dose 75+ series) [facility] Start: 11-14-2032 Pneumococcal 0-64 years Vaccine (2 of 2 - PPSV23) Pneumococcal 0-64 years Vaccine (2 of 2 - PPSV23) [facility] Start: 11-14-2032 Pneumococcal 0-64 years Vaccine (2 of 2) Pneumococcal 0-64 years Vaccine (2 of 2) [facility] Work Phone: Start: 2027 RSV Immunization aged 60 or older (1 - 1-dose 60+ series) RSV Immunization aged 60 or older (1 - 1-dose 60+ series) [facility] Start: 07-10-2027 Lipid panel Lipid Panel [facility] Start: 09-01-2025 Lipid panel [facility] Start: 06-11-2025 Screening for malignant neoplasm of lung Lung Cancer Screening [facility] Start: 02-10-2025 Screening for malignant neoplasm of lung Lung Cancer Screening [facility] Start: 02-04-2025 Depression Monitoring Depression Monitoring [facility] Start: 12-05-2024 Depression Monitoring Depression Monitoring [facility] Start: 11-30-2024 Influenza vaccination Influenza Vaccine (Season Ended) [facility] Start: 11-05-2024 Depression Monitoring Depression Monitoring [facility] Start: 10-21-2024 End: 10-21-2024 Patient encounter procedure 10/21/2024 3:20 PM EDT Office Visit [facility] [address] [place] [phone] Lynda Rasheed MD [address] [place], [place] [address] [facility] Start: 08-14-2024 End: 08-14-2024 Patient encounter procedure 08/14/2024 9:40 AM EDT Office Visit [facility] [address] [place] [phone] Lynda Rasheed MD [address] [place], [place] [address] [facility] Start: 08-13-2024 End: 08-13-2024 Patient encounter procedure 08/13/2024 1:30 PM EDT Appointment [facility] [address] [place] [phone] Luis Branch MD [address] [address] Ammon Abdul, [facility] Start: 07-28-2024 Depression Monitoring Depression Monitoring [facility] Start: 07-20-2024 Depression Monitoring Depression Monitoring [facility] Start: 06-19-2024 End: 06-19-2024 Patient encounter procedure 06/19/2024 1:40 PM EDT Office Visit [facility] Lung Nodule [facility] [address] [place] [phone] Yasemin Quintero, SCRAPER OPERATOR - WAITSTAFF CAPTAIN [address] [place] [address] [facility] Start: 06-16-2024 End: 06-16-2025 Erythrocyte sedimentation rate Sedimentation rate, automated Lab Routine Lumbar back pain Expected: 06/16/2024 (Approximate), Expires: 06/16/2025 [facility] Comment on above: Expected: 06/16/2024 (Approximate), Expi res: 06/16/2025 Start: 06-16-2024 End: 06-16-2025 Nuclear Ab [Titer] in Serum by Immunofluorescence [facility] Lab Routine Lumbar back pain Expected: 06/16/2024 (Approximate), Expires: 06/16/2025 [facility] Comment on above: Expected: 06/16/2024 (Approximate), Expi res: 06/16/2025 Start: 06-16-2024 End: 06-16-2024 Patient encounter procedure 06/16/2024 2:00 PM EDT Office Visit [facility] [address] [place] [address] Lynda Rasheed MD [address] [place], [place] [id number] [facility] Start: 06-16-2024 End: 06-16-2025 Rheumatoid factor [Units/volume] in Serum or Plasma Rheumatoid factor Lab Routine Lumbar back pain Expected: 06/16/2024 (Approximate), Expires: 06/16/2025 [facility] Comment on above: Expected: 06/16/2024 (Approximate), Expi res: 06/16/2025 Start: 06-16-2024 End: 06-16-2025 XR Lumbar spine Views W flexion and W extension XR lumbar spine 4-5 view Imaging Routine Lumbar back pain Expected: 06/16/2024, Expires: 06/16/2025 [facility] Work Phone: Comment on above: Expected: 06/16/2024, Expires: Start: 06-11-2024 End: 06-11-2024 Patient encounter procedure 06/11/2024 4:15 PM EDT Appointment [facility] [address] [place] [phone] Myra Darden MD [address] [place] [id number] [facility] [address] Start: 06-11-2024 Subsequent hospital visit by physician 06/11/2024 4:15 PM EDT Hospital Encounter [facility] [address] [place] [address] Myra Darden MD [address] [place] [address] [id number] [facility] [address] Start: 06-05-2024 End: 06-05-2024 Patient encounter procedure 06/05/2024 10:20 AM EST Office Visit [facility] Lung Nodule [facility] [address] [place] [phone] Kristin Lara APRN - JAMAL [address] [place] [phone] [facility] Lung Nodule [facility] Start: 05-29-2024 End: 05-29-2024 Patient encounter procedure 05/29/2024 3:30 PM EST Appointment [facility] [address] [place] [address] Myra Darden MD [address] [place] [address] [address] [facility] [address] [facility] Start: 05-29-2024 End: 02-27-2025 CT Chest WO contrast CT chest wo IV contrast Imaging Routine Pulmonary nodule Expected: 05/29/2024, Expires: 02/27/2025 [facility] Work Phone: Comment on above: Expected: 05/29/2024, Expires: Start: 05-20-2024 End: 05-20-2025 Bacteria identified in Urine by Culture Urine culture (clean catch) Microbiology Routine ED (erectile dysfunction) of non-organic origin Urinary frequency Expected: 05/20/2024 (Approximate), Expires: 05/20/2025 [facility] Comment on above: Expected: 05/20/2024 (Approximate), Expi res: 05/20/2025 Start: 05-20-2024 End: 05-20-2025 CBC W Auto Differential panel - Blood CBC auto differential Lab Routine Psoriasiform seborrheic dermatitis Elevated liver enzymes Expected: 05/20/2024 (Approximate), Expires: 05/20/2025 [facility] Work Phone: Comment on above: Expected: 05/20/2024 (Approximate), Expi res: 05/20/2025 Start: 05-20-2024 End: 05-20-2025 Urinalysis complete panel - Urine Urinalysis with reflex microscopic (clean catch) Lab Routine ED (erectile dysfunction) of non-organic origin Urinary frequency Expected: 05/20/2024 (Approximate), Expires: 05/20/2025 [facility] Comment on above: Expected: 05/20/2024 (Approximate), Expi res: 05/20/2025 Start: 05-20-2024 End: 05-20-2025 US Abdomen US abdomen complete Imaging Routine Elevated LFTs Expected: 05/20/2024, Expires: 05/20/2025 [facility] Comment on above: Expected: 05/20/2024, Expires: Start: 05-20-2024 End: 05-20-2024 Patient encounter procedure 05/20/2024 1:00 PM EST Office Visit [facility] [address] [place] [address] Lynda Rasheed MD [address] [place], [place] [address] [facility] Start: 05-08-2024 End: 05-08-2024 Patient encounter procedure 05/08/2024 8:00 AM EST [facility] [address] [place] [phone] Lynda Rasheed MD [address] [place], [place] [address] [facility] Start: 04-24-2024 End: 04-24-2024 Patient encounter procedure 04/24/2024 11:00 AM EST [facility] [address] [place] [phone] Lynda Rashede MD [address] [place], [place] [address] [facility] Start: 03-26-2024 End: 03-26-2024 Patient encounter procedure 03/26/2024 5:30 PM EST Appointment [facility] [address] [place] [phone] Luis Branch MD [address] [id number] Inés Hooper [facility] Start: 03-24-2024 End: 03-24-2024 Patient encounter procedure 03/24/2024 5:30 PM EST Appointment [facility] [address] [place] [phone] Luis Branch MD [address] [address] Inés Hooper [facility] Start: 03-23-2024 End: 03-23-2024 Patient encounter procedure 03/23/2024 5:30 PM EST Appointment [facility] [address] [place] [phone] Luis Branch MD [address] [id number] Inés Hooper [facility] Start: 03-19-2024 End: 03-19-2024 Patient encounter procedure 03/19/2024 5:30 PM EST Appointment [facility] [address] [place] [address] Luis Branch MD [address] [address] Inés Hooper [facility] Start: 03-17-2024 End: 03-17-2024 Patient encounter procedure 03/17/2024 5:30 PM EST Appointment [facility] [address] [place] [address] Luis Branch MD [address] [address] Inés Hooper [facility] Start: 03-16-2024 End: 03-16-2024 Patient encounter procedure 03/16/2024 5:30 PM EST Appointment [facility] [address] [place] [address] Luis Branch MD [address] [address] Inés Hooper [facility] Start: 03-12-2024 End: 03-12-2024 Patient encounter procedure 03/12/2024 5:30 PM EST Appointment [facility] [address] [place] [address] Luis Branch MD [address] [address] Inés Hooper [facility] Start: 03-10-2024 End: 03-10-2024 Patient encounter procedure 03/10/2024 5:30 PM EST Appointment [facility] [address] [place] [address] Luis Branch MD [address] [address] Inés Hooper [facility] Start: 03-09-2024 End: 03-09-2024 Patient encounter procedure 03/09/2024 5:30 PM EST Appointment [facility] [address] [place] [address] Luis Branch MD [address] [address] Inés Hooper [facility] Start: 03-05-2024 End: 03-05-2024 Patient encounter procedure 03/05/2024 5:30 PM EST Appointment [facility] [address] [place] [address] Luis Branch MD [address] [address] Inés Hooper [facility] Start: 03-03-2024 End: 03-03-2024 Patient encounter procedure 03/03/2024 5:30 PM EST Appointment [facility] [address] [place] [address] Luis Branch MD [address] [address] Inés Hooper [facility] Start: 03-02-2024 End: 03-02-2024 Patient encounter procedure 03/02/2024 5:30 PM EST Appointment [facility] [address] [place] [phone] Luis Branch MD [address] [address] Inés Hooper [facility] Start: 02-28-2024 End: 02-28-2024 Patient encounter procedure 02/28/2024 9:30 AM EST Office Visit [facility] Lung N[facility]ule [facility] [address] [place] [phone] Myra Darden MD [address] [place] [address] [facility] Start: 02-27-2024 End: 02-27-2024 Patient encounter procedure 02/27/2024 5:30 PM EST Appointment [facility] [address] [place] [address] Luis Branch MD [address] [address] Inés Hooper [facility] Start: 02-25-2024 End: 02-25-2024 Patient encounter procedure 02/25/2024 5:30 PM EST Appointment [facility] [address] [place] [phone] Luis Branch MD [address] [address] Inés Hooper [facility] Start: 02-24-2024 End: 02-24-2024 Patient encounter procedure 02/24/2024 5:30 PM EST Appointment [facility] [address] [place] [address] Luis Branch MD [address] [address] Inés Hooper [facility] Start: 02-20-2024 End: 02-20-2024 Patient encounter procedure 02/20/2024 5:30 PM EST Appointment [facility] [address] [place] [address] Luis Branch MD [address] [address] Inés Hooper [facility] Start: 02-18-2024 End: 02-18-2024 Patient encounter procedure 02/18/2024 5:30 PM EST Appointment [facility] [address] [place] [address] Luis Branch MD [address] [address] Inés Hooper [facility] Start: 02-17-2024 End: 02-17-2024 Patient encounter procedure 02/17/2024 5:30 PM EST Appointment [facility] [address] [place] [address] Luis Branch MD [address] [address] Inés Hooper [facility] Start: 02-15-2024 Lipid panel Lipid screen [place], [place] Start: 02-15-2024 Lipid screen Lipid screen [place] Start: 02-13-2024 End: 02-13-2024 Patient encounter procedure 02/13/2024 5:30 PM EST Appointment [facility] [address] [place] [address] Luis Branch MD [address] [address] Inés Hooper [facility] Start: 02-12-2024 End: 02-12-2024 Patient encounter procedure 02/12/2024 2:00 PM EST Office Visit [facility] [address] [place] [phone] Robyn Edmond APRN - CNP [address] [place] [address] [facility] [place] Start: 02-11-2024 End: 02-11-2024 Patient encounter procedure 02/11/2024 5:30 PM EST Appointment [facility] [address] [place] [address] Luis Branch MD [address] [address] Inés Hooper [facility] Start: 02-10-2024 End: 02-10-2024 Patient encounter procedure 02/10/2024 5:30 PM EST Appointment [facility] [address] [place] [address] Luis Branch MD [address] [address] Inés Hooper [facility] Start: 02-06-2024 End: 02-06-2024 Patient encounter procedure 02/06/2024 5:30 PM EST Appointment [facility] [address] [place] [address] Luis Branch MD [address] [phone] Inés Hooper [facility] Start: 02-05-2024 End: 02-04-2025 Comprehensive metabolic 1998 panel - Serum or Plasma Comprehensive metabolic panel Lab Routine Psoriasiform seborrheic dermatitis Elevated liver enzymes Expected: 02/05/2024 (Approximate), Expires: 02/04/2025 [facility] Work Phone: Comment on above: Expected: 02/05/2024 (Approximate), Expi res: 02/04/2025 Start: 02-05-2024 End: 02-04-2025 CT Chest for screening WO contrast CT lung screening low dose Imaging Routine Current smoker Expected: 02/05/2024, Expires: 02/04/2025 [facility] Comment on above: Expected: 02/05/2024, Expires: Start: 02-05-2024 End: 02-04-2025 Lipid 1996 panel - Serum or Plasma Lipid panel Lab Routine Psoriasiform seborrheic dermatitis Elevated liver enzymes Expected: 02/05/2024 (Approximate), Expires: 02/04/2025 [facility] Comment on above: Expected: 02/05/2024 (Approximate), Expi res: 02/04/2025 Start: 02-05-2024 End: 02-04-2025 PSA screening PSA Screening Lab Routine Psoriasiform seborrheic dermatitis Elevated liver enzymes Screening PSA (prostate specific antigen) Expected: 02/05/2024 (Approximate), Expires: 02/04/2025 [facility] Comment on above: Expected: 02/05/2024 (Approximate), Expi res: 02/04/2025 Start: 02-05-2024 End: 02-05-2024 Patient encounter procedure 02/05/2024 1:30 PM EST Appointment [facility] [address] [place] [address] Luis Branch MD [address] [address] [facility] Start: 02-05-2024 End: 02-05-2024 Patient encounter procedure 02/05/2024 8:20 AM EST Office Visit [facility] [address] [place] [phone] Lynda Rasheed MD [address] [place], [place] [phone] [facility] Start: 02-03-2024 End: 02-03-2024 Patient encounter procedure 02/03/2024 5:30 PM EST Appointment [facility] [address] [place] [phone] Luis Branch MD 55 [facility] [address] [place] [phone] Inés Hooper [facility] Start: 01-28-2024 End: 01-28-2024 Patient encounter procedure 01/28/2024 1:30 PM EDT Appointment [facility] [address] [place] [phone] Luis Branch MD [address] [place] [address] Ammon Abdul [facility] Start: 01-26-2024 Depression Monitoring Depression Monitoring [facility] Start: 01-08-2024 Depresssion Monitoring Depresssion Monitoring [facility] Start: 12-17-2023 End: 12-17-2023 Patient encounter procedure [facility] Start: 12-11-2023 End: 12-11-2023 Patient encounter procedure 12/11/2023 1:00 PM EDT Appointment [facility] [address] [place] [phone] Yakov Owen MD [address] [place] [address] Rosalee Hamilton [facility] Start: 12-06-2023 End: 12-06-2023 Patient encounter procedure 12/06/2023 10:00 AM EDT Office Visit [facility] [address] [place] [phone] Luis Branch MD [address] [place] [address] [facility] Start: 12-01-2023 COVID-19 Vaccine ( season) COVID-19 Vaccine ( season) [facility] Start: 12-01-2023 COVID-19 Vaccine ( season) COVID-19 Vaccine ( season) [facility] Start: 12-01-2023 Influenza vaccination [facility] Start: 11-02-2023 Diabetes mellitus screening Diabetes Screening [facility] Start: 09-26-2023 Pneumococcal Vaccine: 50+ Years (2 of 2 - PCV) Pneumococcal Vaccine: 50+ Years (2 of 2 - PCV) [facility] Start: 09-26-2023 Pneumococcal Vaccine: Pediatrics (0 to 5 Years) and At-Risk Patients (6 to 64 Years) (2 - PCV) Pneumococcal Vaccine: Pediatrics (0 to 5 Years) and At-Risk Patients (6 to 64 Years) (2 - PCV) [facility] Start: 09-26-2023 Pneumococcal Vaccine: Pediatrics (0 to 5 Years) and At-Risk Patients (6 to 64 Years) (2 of 2 - PCV) Pneumococcal Vaccine: Pediatrics (0 to 5 Years) and At-Risk Patients (6 to 64 Years) (2 of 2 - PCV) [facility] Start: 08-09-2023 Depresssion Monitoring Depresssion Monitoring [facility] Start: 08-05-2023 End: 08-05-2023 Patient encounter procedure 08/05/2023 1:00 PM EDT Appointment [facility] [address] [place] [address] Dori Franco MD [address] [place] [address] [address] [place] [phone] Klye Gold LPCC [facility] Start: 07-10-2023 Lipid panel Lipid Panel [facility] Start: 07-04-2023 End: 07-04-2023 Patient encounter procedure 07/04/2023 1:40 PM EDT Office Visit [facility] [address] [place] [address] Lynda Rasheed MD [address] [place], [place] [phone] [facility] Start: 06-06-2023 End: 06-06-2023 Patient encounter procedure 06/06/2023 1:30 PM EST Appointment [facility] [address] [place] [phone] Dori Franco MD [address] [place] [address] [address] [place] [phone] Ammon Abdul, [facility] Start: 04-11-2023 Depresssion Monitoring Depresssion Monitoring [facility] Start: 04-03-2023 End: 04-03-2023 Patient encounter procedure [facility] Start: 03-12-2023 Depresssion Monitoring Depresssion Monitoring [facility] Start: 01-09-2023 End: 10-10-2023 Comprehensive metabolic 1998 panel - Serum or Plasma Comprehensive metabolic panel Lab Routine Alcohol use disorder, severe (HCC) Alcohol withdrawal syndrome with complication (HCC) Encounter for monitoring naltrexone therapy Expected: 01/09/2023 (Approximate), Expires: 10/10/2023 [facility] Work Phone: Comment on above: Expected: 01/09/2023 (Approximate), Expi res: 10/10/2023 Start: 12-26-2022 End: 12-26-2022 Patient encounter procedure [facility] Start: 11-30-2022 COVID-19 Vaccine ( season) COVID-19 Vaccine () [facility] Start: 11-30-2022 Influenza vaccination [facility] Start: 11-13-2022 End: 11-13-2022 Patient encounter procedure 11/13/2022 1:00 PM EDT Office Visit [facility] [address] [facility] [place] [phone] Mack Hill MD [address] [facility] [address] [place], [place] [phone] [facility] Start: 11-09-2022 End: 11-09-2022 Patient encounter procedure 11/09/2022 1:00 PM EDT Appointment [facility] [address] [place] [phone] [facility] Start: 11-06-2022 End: 11-06-2022 Patient encounter procedure 11/06/2022 4:00 PM EDT Office Visit [facility] [address] [place] [phone] Papito Hood MD [address] [place] [address] [facility] Start: 10-09-2022 End: 10-09-2022 Patient encounter procedure 10/09/2022 9:00 AM EDT Office Visit [facility] [address] [facility] [address] [place] [phone] Papito Hood MD [address] [place] [address] [facility] Start: 10-01-2022 End: 10-02-2023 Cobalamin (Vitamin B12) [Mass/volume] in Serum or Plasma Vitamin B12 Lab Routine Hyperglycemia Abnormal CBC Expected: 10/01/2022 (Approximate), Expires: 10/02/2023 [email or web address] Work Phone: Comment on above: Expected: 10/01/2022 (Approximate), Expi res: 10/02/2023 Start: 10-01-2022 End: 10-02-2023 Hemoglobin A1c/Hemoglobin.total in Blood Hemoglobin A1c Lab Routine Hyperglycemia Abnormal CBC Expected: 10/01/2022 (Approximate), Expires: 10/02/2023 [facility] Comment on above: Expected: 10/01/2022 (Approximate), Expi res: 10/02/2023 Start: 10-01-2022 End: 10-02-2023 Iron and Iron binding capacity panel - Serum or Plasma Iron level Lab Routine Hyperglycemia Abnormal CBC Expected: 10/01/2022 (Approximate), Expires: 10/02/2023 [facility] Comment on above: Expected: 10/01/2022 (Approximate), Expi res: 10/02/2023 Start: 09-25-2022 End: 09-26-2023 CBC W Auto Differential panel - Blood CBC auto differential Lab Routine Elevated liver enzymes Expected: 09/25/2022 (Approximate), Expires: 09/26/2023 [email or web address] Work Phone: Comment on above: Expected: 09/25/2022 (Approximate), Expi res: 09/26/2023 Start: 09-25-2022 End: 09-26-2023 Comprehensive metabolic 1998 panel - Serum or Plasma Comprehensive metabolic panel Lab Routine Elevated liver enzymes Expected: 09/25/2022 (Approximate), Expires: 09/26/2023 [facility] Comment on above: Expected: 09/25/2022 (Approximate), Expi res: 09/26/2023 Start: 09-25-2022 End: 09-26-2023 Hepatitis 1996 panel - Serum Hepatitis panel, acute Lab Routine Elevated liver enzymes Expected: 09/25/2022 (Approximate), Expires: 09/26/2023 [facility] Comment on above: Expected: 09/25/2022 (Approximate), Expi res: 09/26/2023 Start: 09-25-2022 End: 09-25-2022 Patient encounter procedure [facility] Start: 09-19-2022 End: 09-19-2022 Patient encounter procedure 09/19/2022 8:30 AM EDT Appointment [facility] [address] [place] [phone] Aurora Aparicio [facility]CC [facility] Start: 08-01-2022 End: 08-02-2023 Comprehensive metabolic 1998 panel - Serum or Plasma Comprehensive metabolic panel Lab Routine SOB (shortness of breath) Expected: 08/01/2022 (Approximate), Expires: 08/02/2023 [facility] Comment on above: Expected: 08/01/2022 (Approximate), Expi res: 08/02/2023 Start: 08-01-2022 End: 08-01-2024 US Heart Transthoracic Transthoracic echocardiogram (TTE) complete with contrast, bubble, strain, and 3D PRN CV Echocardiography Routine Abnormal EKG Expected: 08/01/2022 (Approximate), Expires: 08/01/2024 [facility] Work Phone: Comment on above: Expected: 08/01/2022 (Approximate), Expi res: 08/01/2024 Start: 08-01-2022 End: 08-02-2023 XR Chest 2 Views XR chest 2 views Imaging Routine SOB (shortness of breath) Expected: 08/01/2022, Expires: 08/02/2023 [facility] Comment on above: Expected: 08/01/2022, Expires: Start: 08-01-2022 End: 08-01-2022 Patient encounter procedure 08/01/2022 Office Visit Family Medicine Lynda Rasheed MD [address] [place] [address] [facility] Start: 07-23-2022 End: 07-23-2022 Esophagogastroduodenoscopy transoral diagnostic EGD DIAGNOSTIC Hematemesis, unspecified whether nausea present 07/23/2022 9:34 AM EDT [facility] Start: 07-11-2022 End: 07-12-2023 Hemoglobin A1c/Hemoglobin.total in Blood Hemoglobin A1c Lab Routine Hyperglycemia Expected: 07/11/2022 (Approximate), Expires: 07/12/2023 [email or web address] Work Phone: Comment on above: Expected: 07/11/2022 (Approximate), Expi res: 07/12/2023 Start: 07-09-2022 End: 07-10-2023 XR Shoulder - right 2 Views XR shoulder 2+ views right Imaging Routine Low back pain, unspecified Pain in left shoulder Other chronic pain Pain in right shoulder Expected: 07/09/2022, Expires: 07/10/2023 [facility] Work Phone: Comment on above: Expected: 07/09/2022, Expires: Start: 06-12-2022 End: 06-13-2023 CBC W Auto Differential panel - Blood CBC auto differential Lab Routine Elevated liver enzymes Expected: 06/12/2022 (Approximate), Expires: 06/13/2023 [facility] Comment on above: Expected: 06/12/2022 (Approximate), Expi res: 06/13/2023 Start: 06-12-2022 End: 06-13-2023 Comprehensive metabolic 1998 panel - Serum or Plasma Comprehensive metabolic panel Lab Routine Elevated liver enzymes Expected: 06/12/2022 (Approximate), Expires: 06/13/2023 [facility] Comment on above: Expected: 06/12/2022 (Approximate), Expi res: 06/13/2023 Start: 06-12-2022 End: 06-13-2023 Lipid 1996 panel - Serum or Plasma Lipid panel Lab Routine Elevated liver enzymes Expected: 06/12/2022 (Approximate), Expires: 06/13/2023 [facility] Comment on above: Expected: 06/12/2022 (Approximate), Expi res: 06/13/2023 Start: 06-12-2022 End: 06-13-2023 PSA screening [facility] Comment on above: Expected: 06/12/2022 (Approximate), Expi res: 06/13/2023 Start: 06-12-2022 End: 06-13-2023 XR Lumbar spine 4 Views XR lumbar spine complete 4+ views Imaging Routine Lumbar back pain Expected: 06/12/2022, Expires: 06/13/2023 [facility] Comment on above: Expected: 06/12/2022, Expires: 4 Start: 06-12-2022 End: 06-13-2023 XR Shoulder - left 2 Views XR shoulder 2+ views left Imaging Routine Chronic left shoulder pain Expected: 06/12/2022, Expires: 06/13/2023 [facility] Work Phone: Comment on above: Expected: 06/12/2022, Expires: 4 Start: 06-12-2022 End: 06-13-2023 XR Shoulder - right 2 Views XR shoulder 2+ views right Imaging Routine Chronic pain of both shoulders Expected: 06/12/2022, Expires: 06/13/2023 [facility] Comment on above: Expected: 06/12/2022, Expires: Start: 11-30-2021 Influenza vaccination [facility] Start: 09-01-2021 Lipid panel [facility] Start: 06-23-2021 End: 06-23-2021 Patient encounter procedure 06/23/2021 Office Visit Family Medicine Lynda Rasheed MD [address] [place] [phone] [facility] Start: 05-04-2021 COVID-19 Vaccine (4 - Booster for Pfizer series) COVID-19 Vaccine (4 - Booster for Pfizer series) [facility] Start: 05-04-2021 COVID-19 Vaccine (4 - Pfizer series) COVID-19 Vaccine (4 - Pfizer series) [facility] Start: 12-15-2020 End: 12-15-2020 Patient encounter procedure 12/15/2020 Appointment IP Unit Sotero Madsen MD [address] [place], [place] [address] [place] [address] [facility] Start: 11-30-2020 Influenza vaccination [facility] Work Phone: Start: 11-22-2020 End: 11-22-2020 Telemedicine consultation with patient 11/22/2020 Telemedicine Family Medicine Lynda Rasheed MD [address] [place] [phone] [facility] Start: 09-13-2020 End: 09-13-2020 Patient encounter procedure 09/13/2020 Office Visit General Surgery Sotero Madsen MD [address] [place], [place] [address] [place] [address] Gen Surg - [facility] Start: 12-01-2019 Influenza vaccination Flu vaccine (#1) [place], [place] Start: 06-15-2019 End: 06-15-2019 Office Visit 06/15/2019 Office Visit Family Medicine Lynda Rasheed MD [address] [place] [phone] [facility] Start: 01-24-2018 Pneumococcal 0-64 years Vaccine (2 - PCV) Pneumococcal 0-64 years Vaccine (2 - PCV) [facility] Start: 01-24-2018 Pneumococcal Vaccine: Pediatrics (0 to 5 Years) and At-Risk Patients (6 to 64 Years) (2 - PCV) Pneumococcal Vaccine: Pediatrics (0 to 5 Years) and At-Risk Patients (6 to 64 Years) (2 - PCV) [facility] Start: 11-14-2017 Colon cancer screen colonoscopy Colon cancer screen colonoscopy [place] Start: 11-14-2017 Screening for malignant neoplasm of colon Colon cancer screen colonoscopy [place] Start: 11-14-2017 Screening for malignant neoplasm of lung [facility] Start: 11-14-2017 Shingles Vaccine (1 of 2) Shingles Vaccine (1 of 2) [facility] Start: 11-14-2017 Zoster Vaccines (1 of 2) Zoster Vaccines (1 of 2) [facility] Start: 11-14-2012 Screening for malignant neoplasm of colon [facility] Start: 2007 Diabetes screen Diabetes screen [facility] Work Phone: Start: 11-14-2002 Diabetes screen Diabetes screen [facility] Start: 11-14-1986 DTaP/Tdap/Td vaccine (1 - Tdap) DTaP/Tdap/Td vaccine (1 - Tdap) [facility] Start: 11-14-1986 DTaP/Tdap/Td Vaccines (1 - Tdap) DTaP/Tdap/Td Vaccines (1 - Tdap) [facility] Start: 11-14-1986 Hepatitis A Vaccines (1 of 2 - Risk 2-dose series) Hepatitis A Vaccines (1 of 2 - Risk 2-dose series) [facility] Start: 11-14-1986 Hepatitis B Vaccines (1 of 3 - 19+ 3-dose series) Hepatitis B Vaccines (1 of 3 - 19+ 3-dose series) [facility] Start: 11-14-1985 Diabetes mellitus screening Diabetes Screening [facility] Start: 1983 COVID-19 Vaccine (1) COVID-19 Vaccine (1) [facility] Work Phone: Start: 1979 Depression Monitoring Depression Monitoring [facility] Start: 1979 Depresssion Monitoring Depresssion Monitoring [facility] Start: 11-14-1978 DTaP/Tdap/Td vaccine (1 - Tdap) DTaP/Tdap/Td vaccine (1 - Tdap) [place] Start: 11-14-1977 Diabetic foot examination Diabetes: Foot Exam [facility] Start: 11-14-1977 Glaucoma screening Diabetes: Retinopathy Screening [facility] Start: 11-14-1977 Preventive dental service Diabetes: Dental Exam [facility] Start: 11-14-1968 Hepatitis A Vaccines (1 of 2 - Risk 2-dose series) Hepatitis A Vaccines (1 of 2 - Risk 2-dose series) [facility] Start: 11-14-1968 MMR Vaccines (1 of 1 - Standard series) MMR Vaccines (1 of 1 - Standard series) [facility] Start: 1967 Hemoglobin A1c measurement Diabetes: Hemoglobin A1C [facility] Start: 1967 Hepatitis B Vaccines (1 of 3 - 3-dose series) Hepatitis B Vaccines (1 of 3 - 3-dose series) [facility] Start: 1967 HIV screening HIV Screening [facility] Start: 1967 Screening for malignant neoplasm of colon [facility] End: 06-10-2020 Anti-smooth muscle antibody Anti-smooth muscle antibody Lab Routine Tomorrow AM for 1 Occurrences starting 06/10/2020 until 06/10/2020 [facility] Work Phone: Comment on above: Tomorrow AM for 1 Occurrences starting 0 06/10/2020 until 06/10/2020 Anti-smooth muscle antibody Anti -smooth muscle antibody Lab Routine 06/10/2020 3:08 AM EST [facility] Work Phone: Basic Metabolic Pane l w/ Reflex to MG Basic Metabolic Panel w/ Reflex to MG Lab Routine Daily until discontinued starting 06/10/2020, 1 completed [facility] Work Phone: Comment on above: Daily until discontinued starting 2020, 1 completed End: 05-20-2023 Blood gases, venous measurement Blood gas, venous Lab STAT Once (Lab) for 1 Occurrences starting 05/20/2023 until 05/20/2023 [facility] Work Phone: Comment on above: Once (Lab) for 1 Occurrences starting until 05/20/2023 End: 06-10-2020 Blood glucose - POCT Blood glucose - POCT Point of Care Testing Routine One Time for 1 Occurrences starting 06/10/2020 until 06/10/2020 [facility] Work Phone: Comment on above: One Time for 1 Occurrences starting 05/30 until 06/10/2020 CBC auto differential CBC auto d ifferential Lab Routine Daily until discontinued starting 06/10/2020, 1 completed [employer] Work Phone: Comment on above: Daily until discontinued starting 2020, 1 completed CBC W Auto Different ial panel - Blood CBC with Auto Differential Lab Routine Daily until discontinued starting 09/29/2021, 1 completed [employer] Work Phone: Comment on above: Daily until discontinued starting 2021, 1 completed End: 06-10-2020 CERULOPLASMIN CERULOPLASMIN Lab Routine Tomorrow AM for 1 Occurrences starting 06/10/2020 until 06/10/2020 [employer] Work Phone: Comment on above: Tomorrow AM for 1 Occurrences starting 0 06/10/2020 until 06/10/2020 CERULOPLASMIN CERULOPLASMIN La b Routine 06/10/2020 3:08 AM EST [employer] Work Phone: Cologuard colon canc er screening Cologuard colon cancer screening Lab Routine Screening for colon cancer Ordered: 08/14/2024 [facility] Work Phone: Comment on above: Ordered: 08/14/2024 Complete PFT study Complete PFT study PFT Routine SOB (shortness of breath) Ordered: 08/01/2022 [employer] Comment on above: Ordered: 08/01/2022 Comprehensive metabo lic 2000 panel - Serum or Plasma Comprehensive Metabolic Panel Lab Routine Daily until discontinued starting 09/29/2021, 1 completed [employer] Work Phone: Comment on above: Daily until discontinued starting 2021, 1 completed End: 02-11-2024 CT Chest for screening WO contrast [facility] Work Phone: Comment on above: Once for 1 Occurrences starting 02/11/20 24 until 02/11/2024 End: 06-11-2024 CT Chest WO contrast [facility] Work Phone: Comment on above: Once for 1 Occurrences starting 06/12/19 25 until 06/11/2024 End: 10-10-2023 Drug screen panel, emergency Drug screen panel, emergency Lab Routine Alcohol withdrawal syndrome with complication (HCC) Encounter for monitoring naltrexone therapy Every 4 weeks for 6 Occurrences starting 10/09/2022 until 10/10/2023 [employer] Comment on above: Every 4 weeks for 6 Occurrences starting 10/09/2022 until 10/10/2023 End: 05-07-2024 Extra Tubes Extra Tubes Lab Routine Once (Lab) for 1 Occurrences starting 05/07/2024 until 05/07/2024 [facility] Work Phone: Comment on above: Once (Lab) for 1 Occurrences starting until 05/07/2024 Hemoglobin and Hematocrit Hemogl obin and Hematocrit Lab Routine 06/07/2021 2:21 AM EST [employer] Work Phone: End: 09-29-2021 Hemoglobin and Hematocrit Hemoglobin and Hematocrit Lab Timed Every 6 Hours (Lab) for 2 Days starting 09/27/2021 until 09/29/2021, 1 completed [employer] Work Phone: Comment on above: Every 6 Hours (Lab) for 2 Days starting 09/27/2021 until 09/29/2021, 1 completed Hemoglobin and Hematocrit Hemogl obin and Hematocrit Lab Timed 09/27/2021 1:42 AM EDT [employer] Work Phone: Hepatic function panel Hepatic f unction panel Lab Routine Daily until discontinued starting 06/10/2020, 1 completed [employer] Work Phone: Comment on above: Daily until discontinued starting 2020, 1 completed End: 06-10-2020 Intermittent pulse oximetry Pulse Oximetry Spot Check Respiratory Care Routine One Time for 1 Occurrences starting 06/10/2020 until 06/10/2020 [employer] Work Phone: Comment on above: One Time for 1 Occurrences starting 05/30 until 06/10/2020 End: 06-10-2020 Nuclear Ab IF (S) [Titer] CHULA Lab Routine Tomorrow AM for 1 Occurrences starting 06/10/2020 until 06/10/2020 [employer] Work Phone: Comment on above: Tomorrow AM for 1 Occurrences starting 0 06/10/2020 until 06/10/2020 Nuclear Ab IF (S) [Titer] CHULA La b Routine 06/10/2020 3:08 AM EST [employer] Work Phone: OUTSIDE PROCEDURE SCAN OUTSIDE P ROCEDURE SCAN Procedures Ordered: 07/09/2022 [email or web address] Comment on above: Ordered: 07/09/2022 OUTSIDE PROCEDURE SCAN OUTSIDE P ROCEDURE SCAN Procedures Ordered: 09/29/2022 [facility] Comment on above: Ordered: 09/29/2022 OUTSIDE PROCEDURE SCAN OUTSIDE P ROCEDURE SCAN Procedures Ordered: 11/01/2022 [facility] Comment on above: Ordered: 11/01/2022 Oxygen therapy [Mini mum Data Set] Initiate Oxygen Therapy Protocol Respiratory Care Routine Daily until discontinued starting 06/09/2020 [employer] Work Phone: Comment on above: Daily until discontinued starting 2020 Oxygen therapy [Mini mum Data Set] Initiate Oxygen Therapy Protocol Respiratory Care Routine As Needed until discontinued starting 06/07/2021 [employer] Work Phone: Comment on above: As Needed until discontinued starting Oxygen therapy [Mini mum Data Set] Initiate Oxygen Therapy Protocol Respiratory Care Routine As Needed until discontinued starting 09/26/2021 [employer] Phone: Comment on above: As Needed until discontinued starting Oxygen therapy [Mini mum Data Set] Initiate Oxygen Therapy Protocol Respiratory Care Routine As Needed until discontinued starting 09/27/2021 [employer] Phone: Comment on above: As Needed until discontinued starting End: 05-07-2024 Pale Yellow Top Pale Yellow Top Lab Timed Once for 1 Occurrences starting 05/07/2024 until 05/07/2024 [employer] Comment on above: Once for 1 Occurrences starting 05/07/19 until 05/07/2024 End: 05-07-2024 Red Top Red Top Lab Timed Once for 1 Occurrences starting 05/07/2024 until 05/07/2024 [employer] Comment on above: Once for 1 Occurrences starting 05/07/19 until 05/07/2024 End: 06-10-2020 Surgical Pathology Surgical Pathology Lab STAT Once for 1 Occurrences starting 06/10/2020 until 06/10/2020 [employer] Work Phone: Comment on above: Once for 1 Occurrences starting 06/11/19 21 until 06/10/2020 Surgical Pathology Surgical Path ology Lab STAT 06/10/2020 8:49 AM EST [employer] Work Phone: End: 05-08-2024 Transferrin.carbohydrate deficient/Transferrin.total in Serum or Plasma [facility] Work Phone: Comment on above: Once (Lab) for 1 Occurrences starting until 05/08/2024 End: 06-07-2021 VL Mesenteric Artery Duplex Scan VL Mesenteric Artery Duplex Scan Imaging Routine Once for 1 Occurrences starting 06/07/2021 until 06/07/2021 [employer] Work Phone: Comment on above: Once for 1 Occurrences starting 06/08/19 22 until 06/07/2021 End: 07-09-2022 XR Lumbar spine 4 Views [facility] Work Phone: Comment on above: Once for 1 Occurrences starting 07/10/19 23 until 07/09/2022 Immunizations Immunization Date Immunization Notes Care Provider Fa [facility] 09-25-2022 pneumococcal polysaccharide vaccine, 23 valent Lynda Rasheed MD Work Phone: [facility] 03-09-2021 Pfizer SARS-CoV-2 Vaccination Rosalina HOOKS Work Phone: [facility] 02-16-2021 influenza, injectabl e, quadrivalent, preservative free Joon Sheikh MD Work Phone: [facility] 02-16-2021 influenza virus vacc ine, unspecified formulation Rosalina HOOKS Work Phone: [facility] 07-22-2020 Pfizer SARS-CoV-2 Vaccination Rosalina HOOKS Work Phone: [facility] 06-30-2020 Pfizer SARS-CoV-2 Vaccination Rosalina HOOKS Work Phone: [facility] 01-12-2019 influenza, injectabl e, quadrivalent, contains preservative Lynda Rasheed [facility] 01-24-2017 Influenza, injectabl e, Madin [place] Canine Kidney, quadrivalent with preservative Lynda Rasheed [place], [place] 01-24-2017 pneumococcal polysaccharide vaccine, 23 valent Lynda Rasheed [facility] Payers Date Payer Category Payer Medicaid HMO [id number] 2018 Medicaid [id number] 2017 Unknown [id number] 2016 Unknown [id number] 2016 Unknown [facility] xxxxxxxxxxxx 2016-Present [phone] [address] [place] [id number] xxxxxxxxxxxx [id number] Social History Date Type Detail Facility Start: 10-10-1985 End: 06-16-2024 Tobacco smoking status NHIS Current every day smoker [place], [place] Start: 01-12-2019 End: 08-04-2024 Cigarettes smoked current (pack per day) - Reported [facility] Start: 01-12-2019 End: 08-04-2024 Alcohol intake Current drinker of alcohol (finding) [place], [place] Start: 12-18-2016 Alcohol Comment at least 2 tallboys daily [place], [place] Start: 1965 Sex Assigned At Not on file [place] Start: 08-31-2019 Alcohol Comment 6-24oz beers daily. Last drink 1 hour ago. [place] Exposure to SARS-CoV -2 (event) Unable to assess [place] Start: 10-02-2019 End: 06-16-2024 Tobacco use and exposure Never used [place], [place] Start: 10-01-2019 Alcohol Comment 24 oz 12% beer [place] Start: 09-17-2021 End: 11-01-2022 Exposure to SARS-CoV-2 (event) Not sure [facility] [place], [place] Start: 10-10-1985 History of tobacco use Cigarette Smoker [facility] Work Phone: Start: 06-06-2021 History SDOH Alcohol Comment 25oz cans beer 6-8 per day [facility] Work Phone: Start: 09-27-2021 History SDOH Alcohol Comment 25oz cans beer 9-10 per day [facility] Work Phone: Start: 1965 Sex Assigned At Male [facility] Start: 06-02-2022 End: 06-12-2022 Exposure to SARS-CoV-2 (event) Yes [facility] Start: 07-22-2022 History SDOH Alcohol Frequency 5 [facility] Start: 07-22-2022 History SDOH IPV Fear 2 [facility] Start: 07-23-2022 Alcohol Comment beer 8 cans / day [facility] Start: 07-22-2022 End: 08-04-2024 Humiliation, Afraid, Rape, and Kick questionnaire [HARK] [facility] Within the last year , have you been afraid of your partner or ex-partner? No [facility] Are you now , , , , never or living with a partner? [facility] How often to you hav e a drink containing alcohol? 4 or more times a week [facility] How many standard dr inks containing alcohol do you have on a typical day? 7 to 9 [facility] How often do you hav e 6 or more drinks on 1 occasion? Daily or almost daily [facility] How hard is it for y ou to pay for the very basics like food, housing, medical care, and heating Not very hard [facility] Do you feel stress - tense, restless, nervous, or anxious, or unable to sleep at night because your mind is troubled all the time - these days [OSQ] Very much [facility] (I/We) worried wheth er (my/our) food would run out before (I/we) got money to buy more. Never true [facility] In the past 12 month s, has lack of transportation kept you from medical appointments or from getting medications? No [facility] Start: 06-12-2022 Gender identity Identifies as male gender (finding) [facility] Start: 06-12-2022 Sexual orientation Heterosexual (finding) [facility] Start: 09-25-2022 End: 08-10-2024 Alcohol intake Ex-drinker (finding) [facility] Start: 02-08-2023 Alcohol Comment 6-9 tall boy beers/day [facility] Start: 02-17-2023 Alcohol Comment Detox home for a week 0 drinks 02/17/23 [facility] How many standard dr inks containing alcohol do you have on a typical day? 5 or 6 [facility] Do you feel stress - tense, restless, nervous, or anxious, or unable to sleep at night because your mind is troubled all the time - these days [OSQ] To some extent [facility] How many standard dr inks containing alcohol do you have on a typical day? 10 or more [facility] Start: 11-28-2023 Alcohol Comment Detox home for a week 0 drinks 02/17/23, 6 tall boys/ daily 11/28/23 [facility] How hard is it for y ou to pay for the very basics like food, housing, medical care, and heating Somewhat hard [facility] Do you feel stress - tense, restless, nervous, or anxious, or unable to sleep at night because your mind is troubled all the time - these days [OSQ] Not at all [facility] Start: 10-30-2021 Sex Male (finding) [facility] How often to you hav e a drink containing alcohol? Never [facility] History of tobacco use Passive smoker [facility] Start: 05-09-2024 Tobacco Comment Started at 19, 2 PPD, 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 05/09/2024 [facility] History of tobacco use Cigar Smoker [facility] How often to you hav e a drink containing alcohol? 2-4 times a month [facility] How many standard dr inks containing alcohol do you have on a typical day? 1 or 2 [facility] Goals Date Patient Goal Desired Activity /State Personal health goal Comment on above: Formatting of this n ote might be different from the original. Go to school, eat healthier, support my family better and remain sober. Clinical Notes 06-09-2021 to 08-25-2024 Telephone Encounter - Lisa Willis MA - 08/17/2024 7:49 AM EDTTelephone Encounter - Lisa Willis MA - 08/17/2024 7:49 AM EDTTelephone Encounter - Paige Chandra - 08/14/2024 1:20 PM EDT Note Date & Type Note Facility 08-25-2024 Note MyChart message sent to inform the patient that he was referred for smoking cessation counseling, gave contact information, will provide follow up. [facility] 08-17-2024 Telephone encounter Note Therapy completed [facility] 08-17-2024 Miscellaneous Notes Therapy completed Medication name: valACYclovir (Valtrex) 1 g tablet Medication dosage: 1 g tablet Monthly quantity needed: 15 Tablets How many day supply requestin days Medication route: oral (PO) Medication administration time(s): Take 1 tablet (1,000 mg) by mouth 3 times daily for 5 days. If taking medication PRN, reason for taking medication: N/A If this is a controlled substance do you receive this or any other controlled medication from any other doctor or facility: N/A Ordering provider: Date of last office visit: 08/14/24 Date of next office visit: 10/21/24 Date of last refill: (see medication tab): 08/06/24 Updated/Validated preferred pharmacy: Yes Patient instructed to contact the pharmacy prior to picking up the medication: Yes documented in this encounter [facility] 08-14-2024 Telephone encounter Note Medication name: valACYclovir (Valtrex) 1 g tablet Medication dosage: 1 g tablet Monthly quantity needed: 15 Tablets How many day supply requestin days Medication route: oral (PO) Medication administration time(s): Take 1 tablet (1,000 mg) by mouth 3 times daily for 5 days. If taking medication PRN, reason for taking medication: N/A If this is a controlled substance do you receive this or any other controlled medication from any other doctor or facility: N/A Ordering provider: Date of last office visit: 08/14/24 Date of next office visit: 10/21/24 Date of last refill: (see medication tab): 08/06/24 Updated/Validated preferred pharmacy: Yes Patient instructed to contact the pharmacy prior to picking up the medication: Yes [facility] 08-14-2024 History of Present illness Narrative Images from the original note were not included. [facility] - [address] [facility] [address] Dept: [phone] Dept Loc: [phone] Reason for Visit: Herpes Zoster Assessment and Plan 1. Screening for colon cancer - Cologuard colon cancer screening 2. Psoriasiform seborrheic dermatitis patient to continue with Dovonex is doing well with this medication. 3. Elevated liver enzymes patient to continue to stop drinking alcohol. Stay away from any Tylenol ibuprofen 4. Neuropathy this is a chronic issue he is to continue his gabapentin. 5. Herpes zoster with other complication Valtrex prescription was given to patient 1 week acute prescription was given to patient for oxycodone OARRS reviewed do not drive or operate heavy machinery while on this medication may take Flexeril as needed 6. Shingles (herpes zoster) polyneuropathy - oxyCODONE (Roxicodone) 5 MG immediate release tablet; Take 1 tablet (5 mg) by mouth every 8 hours as needed for severe pain (7-10) for up to 7 days., Starting Sat08/14/2024, Until Sat08/21/2024 at 2359, Print current treatment plan is effective, no change in therapy, orders and follow up as documented in EMR, lab results reviewed with patient, repeat labs ordered prior to next appointment, reviewed compliance with lifestyle measures, reviewed diet, exercise and weight control, reviewed medications and side effects in detail Return visit in 3 months. Subjective Herpes Zoster Pertinent negatives include no congestion, fever or headaches. this is a 58-year-old gentleman who is here for follow-up after being seen in the emergency room with his shingles rash completely covering the right side of his torso. He started having it when he was detoxed in the hospital and was found to have shingles. He has severe pain. He denies any blurred vision any issues with his eye. He has numbness and tingling he has a history of neuropathy in general he takes gabapentin. Review of Systems Constitutional: Negative. Negative for activity change, appetite change and fever. HENT: Negative. Negative for congestion. Eyes: Negative. Negative for discharge. Respiratory: Negative. Negative for chest tightness. Cardiovascular: Negative. Gastrointestinal: Negative. Endocrine: Negative. Negative for cold intolerance. Genitourinary: Negative for difficulty urinating. Musculoskeletal: Negative. Neurological: Negative. Negative for dizziness, facial asymmetry and headaches. Hematological: Negative. Allergies[1] Current Medications[2] Problem List[3] Medical History[4] Social History Tobacco Use Smoking status: Every Day Current packs/day: 2.00 Average packs/day: 2.0 packs/day for 38.8 years (77.7 ttl pk-yrs) Types: Cigarettes, Cigars Start date: 10/10/1985 Passive exposure: Past Smokeless tobacco: Never Tobacco comments: Started at 19, 2 PPD, 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 05/09/2024 Substance Use Topics Alcohol use: Not Currently Alcohol/week: 4.0 standard drinks of alcohol Types: 4 Cans of beer per week Surgical History[5] Family History[6] Health Maintenance Topic Date Due HIV Screening Never done Colorectal Cancer Screening Never done MMR Vaccines (1 of 1 - Standard series) Never done DTaP/Tdap/Td Vaccines (1 - Tdap) Never done Hepatitis B Vaccines (1 of 3 - 19+ 3-dose series) Never done Zoster Vaccines (1 of 2) Never done Pneumococcal Vaccine: 50+ Years (2 of 2 - PCV) 09/26/2023 Diabetes Screening 11/02/2023 COVID-19 Vaccine ( season) 2023 Influenza Vaccine (Season Ended) 2024 Depression Monitoring 02/04/2025 Lung Cancer Screening 06/11/2025 Lipid Panel 07/10/2027 RSV Immunization for Adults (1 - 1-dose 75+ series) 11/14/2042 Hepatitis C Screening Completed RSV Immunization under 20 Months Aged Out HIB Vaccines Aged Out IPV Vaccines Aged Out Hepatitis A Vaccines Aged Out Meningococcal Vaccine Aged Out Rotavirus Vaccines Aged Out HPV Vaccines Aged Out Meningococcal B Vaccine Aged Out Objective BP 112/76 Pulse 90 Temp 36.6 C (97.9 F) Ht 5' 11 (1.803 m) Wt 227 lb (103 kg) BMI 31.66 kg/m Physical Exam Vitals and nursing note reviewed. Constitutional: Appearance: Normal appearance. HENT: Head: Normocephalic and atraumatic. Nose: No congestion or rhinorrhea. Mouth/Throat: Mouth: Mucous membranes are moist. Pharynx: Oropharynx is clear. No posterior oropharyngeal erythema. Eyes: Extraocular Movements: Extraocular movements intact. Conjunctiva/sclera: Conjunctivae normal. Pupils: Pupils are equal, round, and reactive to light. Cardiovascular: Pulses: Normal pulses. Heart sounds: Normal heart sounds. No murmur heard. Pulmonary: Effort: Pulmonary effort is normal. No respiratory distress. Breath sounds: Normal breath sounds. No wheezing. Abdominal: General: Abdomen is flat. Bowel sounds are normal. Palpations: Abdomen is soft. Tenderness: There is no abdominal tenderness. Musculoskeletal: General: No swelling. Cervical back: Normal range of motion. Skin: General: Skin is warm and dry. Comments: Located on the abdominal wall skin shingles rash is noted completely on the right side of his torso there is no evidence of cellulitis there is met multiple vesicles. Neurological: General: No focal deficit present. Mental Status: He is alert and oriented to person, place, and time. Mental status is at baseline. Psychiatric: Mood and Affect: Mood normal. Data Reviewed and Summarized Labs: Lab Results Component Value Date WBC 5.0 08/03/2024 HGB 17.1 08/03/2024 HCT 48.4 08/03/2024 PLT 137 (L) 08/03/2024 TSH 2.092 07/21/2022 PSA 1.035 07/09/2022 INR 0.9 07/21/2022 Lab Results Component Value Date NA 138 08/06/2024 K 4.1 08/06/2024 CL 100 08/06/2024 CO2 31 (H) 08/06/2024 BUN 5 (L) 08/06/2024 CREATININE 0.75 08/06/2024 GLUCOSE 111 (H) 08/06/2024 CALCIUM 8.8 08/06/2024 PROT 6.5 08/06/2024 BILITOT 0.5 08/06/2024 ALKPHOS 96 08/06/2024 AST 38 (H) 08/06/2024 ALT 28 08/06/2024 @GLUCOSELAB@ Lab Results Component Value Date CHOL 242 (H) 07/09/2022 CHOL 285 (A) 09/01/2020 CHOL 262 (A) 02/14/2019 Lab Results Component Value Date TRIG 126 07/09/2022 TRIG 120 09/01/2020 TRIG 162 (A) 02/14/2019 Lab Results Component Value Date HDL 70 (H) 07/09/2022 HDL 68 (H) 09/01/2020 HDL 43 02/14/2019 Lab Results Component Value Date LDLCALC 147 (H) 07/09/2022 No results found for: VLDL Lab Results Component Value Date CHOLHDLRATIO 3 07/09/2022 CHOLHDLRATIO 4 09/01/2020 CHOLHDLRATIO 6 02/14/2019 Imaging/Testing: ECG 12 lead Sinus rhythm Probable anterior infarct, age indeterminate Electronically Signed On 08-04-2024 02:23:55 EDT by Anaya Rasheed MD [1] Allergies Allergen Reactions Bee Venom Swelling Nickel Rash Tramadol Nausea And Vomiting Other reaction(s): AOF [2] Current Outpatient Medications Medication Sig Dispense Refill albuterol 108 (90 Base) MCG/ACT inhaler Inhale 2 puffs every 6 hours as needed for wheezing or shortness of breath. 3 each 1 ibuprofen 800 MG tablet Take 1 tablet (800 mg) by mouth every 8 hours as needed for moderate pain (4-6) for up to 6 days. 18 tablet 0 lidocaine (Lidoderm) 5 % patch Apply 1 patch topically daily for 5 days. Remove & discard patch within 12 hours or as directed by . 5 patch 0 pantoprazole (ProtoNix) 40 MG EC tablet Take 1 tablet (40 mg) by mouth daily. 90 tablet 1 valACYclovir (Valtrex) 1 g tablet Take 1 tablet (1,000 mg) by mouth 3 times daily for 5 days. 15 tablet 0 gabapentin (Neurontin) 600 MG tablet Take 1 tablet (600 mg) by mouth 3 times daily. 90 tablet 2 oxyCODONE (Roxicodone) 5 MG immediate release tablet Take 1 tablet (5 mg) by mouth every 8 hours as needed for severe pain (7-10) for up to 7 days. 21 tablet 0 No current facility-administered medications for this visit. 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 Atelectasis Hyponatremia Pneumatosis coli UGIB (upper gastrointestinal bleed) Hypochloremia Transaminitis Hematemesis with nausea Weakness of extremity Conversion reaction BPH (benign prostatic hyperplasia) Tachycardia Alcoholic peripheral neuropathy (HCC) Alcohol withdrawal syndrome with complication (HCC) Shingles (herpes zoster) polyneuropathy [4] Past Medical History: Diagnosis Date Alcohol abuse Alcohol dependence with withdrawal (HCC) 08/31/2019 Alcohol intoxication without use disorder, uncomplicated (HCC) 10/01/2019 Alcohol use disorder 09/10/2022 Alcohol withdrawal syndrome with complication (HCC) 09/27/2021 Alcohol withdrawal syndrome with complication, with unspecified complication (HCC) 05/07/2024 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) 11/28/2023 Alcohol withdrawal syndrome without complication (HCC) 09/10/2022 Alcohol withdrawal with inpatient treatment without complication (HCC) 01/20/2024 Alcohol withdrawal with inpatient treatment, uncomplicated (HCC) 06/02/2024 Alcohol withdrawal, uncomplicated (HCC) 08/31/2019 Alcohol withdrawal, with unspecified complication (HCC) 10/02/2019 Alcohol withdrawal, with unspecified complication (HCC) 10/02/2019 Alcoholic intoxication without complication (CMS/HCC) (HCC) 04/10/2024 Alcoholism (CMS/HCC) (HCC) Anxiety Apical lung nodule Arthritis Maria De Jesus Cerebral artery occlusion with cerebral infarction (HCC) Cerebrovascular disease Depression GERD (gastroesophageal reflux disease) Maria De Jesus Hypertension Insomnia Lung nodule [5] Past Surgical History: Procedure Laterality Date COLONOSCOPY 06/10/2020 EGD/Dr Madison/SHB CYST REMOVAL face EGD (HISTORICAL) 07/23/2022 Dr. Estrella-[facility] SMALL INTESTINE SURGERY UPPER GASTROINTESTINAL ENDOSCOPY 09/27/2021 normal WISDOM TOOTH EXTRACTION [6] Family History Problem Relation Name Age of Onset Depression Sister Maria De Jesus Hogan Other ([id number]) Sister Maria De Jesus Hogan agoraphobia Arthritis Sister Maria De Jesus Hogan Cancer Mother Maria De Jesus Hogan colon rectal cancer; dx after age 50 Other ([id number]) Mother Maria De Jesus Hogan alcoholism Alcohol abuse Mother Maria De Jesus Hogan Stroke Mother Maria De Jesus Hogan Other ([id number]) Father Maria De Jesus Hogan h/o rheumatic fever, cardiac arrest due to bee sting Hypertension Father Maria De Jesus Hogan documented in this encounter [facility] 08-13-2024 History of Present illness Narrative Missed Session Unexcused Pt did not call or show for Scheduled Assessment on this date. documented in this encounter [facility] 08-10-2024 Hospital Discharge instructions Catalino Waddell MD - 08/10/2024 4:49 PM EDT Pain medication sent to pharmacy. Try to stretch this out as long as you can as this is already a repeat prescription. The following attachments cannot be sent through Care Everywhere.Shingles Discharge Instructions (Rwandan)documented in this encounter [facility] 08-10-2024 Emergency department Note EMERGENCY DEPARTMENT ENCOUNTER Pt Name: Maria De Jesus Hogan Birthdate 1965 Date of evaluation: 08/10/2024 ED Provider: Catalino Waddell MD CHIEF COMPLAINT Chief Complaint Patient presents with Rash HISTORY OF PRESENT ILLNESS (Location/Symptom, Timing/Onset, Context/Setting, Quality, Duration, Modifying Factors, Severity) Note limiting factors. I wore appropriate PPE for the entirety of this encounter. HPI Maria De Jesus Hogan is a 58 y.o. who presents to the emergency department with chief complaint of pain associated with shingles rash on the right side of his torso. He was recently detoxed in the hospital for alcohol and was found to have shingles to the right side of his torso chest wall abdominal wall at that time. He was started on Valtrex and given a short course of pain pills upon discharge but has ran out. He has been taking NSAIDs. He states he is still detox from alcohol. Denies any fevers shortness of breath chest pain vomiting. Nursing Notes were reviewed. Limitations to history: None Outside historians: None REVIEW OF SYSTEMS Review of Systems Constitutional: Negative for chills and fever. HENT: Negative for sore throat. Eyes: Negative for visual disturbance. Respiratory: Negative for shortness of breath. Cardiovascular: Negative for chest pain. Skin: Positive for rash. Negative for color change. Neurological: Negative for syncope. All other systems reviewed and are negative. Pertinent positives and negatives as per HPI. 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) 11/28/2023 Alcohol withdrawal syndrome without complication (HCC) Alcohol withdrawal with inpatient treatment without complication (HCC) 01/20/2024 Alcohol withdrawal with inpatient treatment, uncomplicated (HCC) 06/02/2024 Alcohol withdrawal, uncomplicated (HCC) 08/31/2019 Alcohol withdrawal, with unspecified complication (HCC) 10/02/2019 Alcohol withdrawal, with unspecified complication (HCC) 10/02/2019 Alcoholic intoxication without complication (CMS/HCC) (HCC) 04/10/2024 Alcoholism (CMS/HCC) (HCC) Anxiety Apical lung nodule Arthritis Maria De Jesus Cerebral artery occlusion with cerebral infarction (HCC) Cerebrovascular disease Depression GERD (gastroesophageal reflux disease) Maria De Jesus Hypertension Insomnia Lung nodule SURGICAL HISTORY Past Surgical History: Procedure Laterality Date COLONOSCOPY 06/10/2020 EGD/Dr Madison/AMANDA CYST REMOVAL face EGD (HISTORICAL) 07/23/2022 Dr. Estrella-[facility] SMALL INTESTINE SURGERY UPPER GASTROINTESTINAL ENDOSCOPY 09/27/2021 normal WISDOM TOOTH EXTRACTION CURRENT MEDICATIONS Previous Medications ALBUTEROL 108 (90 BASE) MCG/ACT INHALER Inhale 2 puffs every 6 hours as needed for wheezing or shortness of breath. GABAPENTIN (NEURONTIN) 400 MG CAPSULE Take 2 capsules (800 mg) by mouth 3 times daily for 6 days. IBUPROFEN 800 MG TABLET Take 1 tablet (800 mg) by mouth every 8 hours as needed for moderate pain (4-6) for up to 6 days. VALACYCLOVIR (VALTREX) 1 G TABLET Take 1 tablet (1,000 mg) by mouth 3 times daily for 5 days. ALLERGIES Bee venom, Nickel, and Tramadol FAMILY HISTORY Family History Problem Relation Name Age of Onset Depression Sister Maria De Jesus Hogan Other ([id number]) Sister Maria De Jesus Hogan agoraphobia Arthritis Sister Maria De Jesus Hogan Cancer Mother Maria De Jesus Hogan colon rectal cancer; dx after age 50 Other ([id number]) Mother Maria De Jesus Hogan alcoholism Alcohol abuse Mother Maria De Jesus Hogan Stroke Mother Maria De Jesus Hogan Other ([id number]) Father Maria De Jesus Hogan h/o rheumatic fever, cardiac arrest due to bee sting Hypertension Father Maria De Jesus Hogan SOCIAL HISTORY Social History Socioeconomic History Marital status: Tobacco Use Smoking status: Every Day Current packs/day: 2.00 Average packs/day: 2.0 packs/day for 38.8 years (77.7 ttl pk-yrs) Types: Cigarettes, Cigars Start date: 10/10/1985 Passive exposure: Past Smokeless tobacco: Never Tobacco comments: Started at 19, 2 PPD, 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 05/09/2024 Vaping Use Vaping status: Some Days Substance and Sexual Activity Alcohol use: Not Currently Alcohol/week: 4.0 standard drinks of alcohol Types: 4 Cans of beer per week Drug use: Never Sexual activity: Not Currently Partners: Female control/protection: Other Comment: live with Social Drivers of Health Financial Resource Strain: Low Risk (08/04/2024) Overall Financial Resource Strain (CARDIA) Difficulty of Paying Living Expenses: Not hard at all Food Insecurity: No Food Insecurity (08/04/2024) Hunger Vital Sign Worried About Running Out of Food in the Last Year: Never true Ran Out of Food in the Last Year: Never true Transportation Needs: No Transportation Needs (08/04/2024) PRAPARE - Transportation Lack of Transportation (Medical): No Lack of Transportation (Non-Medical): No Physical Activity: Inactive (08/04/2024) Exercise Vital Sign Days of Exercise per Week: 0 days Minutes of Exercise per Session: 0 min Stress: Stress Concern Present (08/04/2024) [place] [employer] - Occupational Stress Questionnaire Feeling of Stress : To some extent Social Connections: Moderately Isolated (08/04/2024) Social Connection and Isolation Panel [NHANES] Frequency of Communication with Friends and Family: Twice a week Frequency of Social Gatherings with Friends and Family: Twice a week Attends Synagogue Services: Never Active Member of Clubs or Organizations: No Attends Club or Organization Meetings: Never Marital Status: Intimate Partner Violence: Not At Risk (08/04/2024) Humiliation, Afraid, Rape, and Kick questionnaire Fear of Current or Ex-Partner: No Emotionally Abused: No Physically Abused: No Sexually Abused: No Housing Stability: Low Risk (08/04/2024) Housing Stability Vital Sign Unable to Pay for Housing in the Last Year: No Number of Times Moved in the Last Year: 0 Homeless in the Last Year: No SCREENINGS PHYSICAL EXAM ED Triage Vitals [08/10/24 1625] Temp Heart Rate Resp BP 36.6 C (97.8 F) 99 16 (!) 175/99 SpO2 Temp Source Heart Rate Source Patient Position 99 % Oral -- -- BP Location FiO2 (%) -- -- Physical Exam Vitals and nursing note reviewed. Constitutional: General: He is not in acute distress. Appearance: He is well-developed. He is not ill-appearing. HENT: Head: Normocephalic and atraumatic. Eyes: Conjunctiva/sclera: Conjunctivae normal. Cardiovascular: Rate and Rhythm: Normal rate and regular rhythm. Pulmonary: Effort: Pulmonary effort is normal. No respiratory distress. Breath sounds: Normal breath sounds. Abdominal: Palpations: Abdomen is soft. Tenderness: There is no abdominal tenderness. Comments: Evolving shingles rash noted to the right side of the torso without any superimposed cellulitis or drainage fluctuance or induration or streaking Musculoskeletal: General: No swelling. Cervical back: Neck supple. Skin: General: Skin is warm and dry. Capillary Refill: Capillary refill takes less than 2 seconds. Neurological: Mental Status: He is alert. Psychiatric: Mood and Affect: Mood normal. DIAGNOSTIC RESULTS Procedures/EKG: EKG was reviewed by myself. Physician [facility] RADIOLOGY (Per Emergency Physician): Interpretation per the Radiologist below, if available at the time of this note: No orders to display ED BEDSIDE ULTRASOUND: Performed by ED Physician - none LABS: Labs Reviewed - No data to display All other labs were within normal range or not returned as of this dictation. EMERGENCY DEPARTMENT COURSE and DIFFERENTIAL DIAGNOSIS/MDM: Vitals: Vitals: 08/10/24 1625 BP: (!) 175/99 Pulse: 99 Resp: 16 Temp: 36.6 C (97.8 F) TempSrc: Oral SpO2: 99% Weight: 101 kg (223 lb) Height: 1.803 m (5' 11) 58-year-old male here for painful shingles rash. Differential shingles pain, no secondary bacterial infection noted, no other complaints. Patient clearly has a shingles rash which is noted to be painful so we will give him another course of oxycodone and have him follow-up. He is already on NSAIDs. Recommend topical lidocaine as well. Medical history impacting this visit includes recent shingles. Social history impacting this visit includes recent alcohol detox. I reviewed his discharge summary from 08/06/2024 after he was in the hospital for alcohol detox. Diagnoses as of 08/10/24 1653 Acute pain associated with herpes zoster Medications - No data to display REVAL: CRITICAL CARE TIME CONSULTS: None PROCEDURES: Unless otherwise noted below, none Procedures Patients symptoms are consistent with sepsis, severe sepsis, or septic shock (If yes use .sepsiscoremeasure): FINAL IMPRESSION 1. Acute pain associated with herpes zoster DISPOSITION Discharge 08/10/2024 04:49:47 PM PATIENT REFERRED TO: Lynda Rasheed MD [address] [place] [address] [address] [facility] [id number] In 1 week DISCHARGE MEDICATIONS: New Prescriptions LIDOCAINE (LIDODERM) 5 % PATCH Apply 1 patch topically daily for 5 days. Remove & discard patch within 12 hours or as directed by . OXYCODONE (ROXICODONE) 5 MG IMMEDIATE RELEASE TABLET Take 1 tablet (5 mg) by mouth every 8 hours as needed for severe pain (7-10) for up to 3 days. (Comment: Please note this report has been produced using speech recognition software and may contain errors related to that system including errors in grammar, punctuation, and spelling, as well as words and phrases that may be inappropriate. If there are any questions or concerns please feel free to contact the dictating provider for clarification.) Catalino Waddell MD (electronically signed) Emergency Medicine Provider Catalino Waddell MD 08/10/24 1653 Recently diagnosed with shingles and is here for increasing pain to area on abdomen. documented in this encounter [facility] 08-10-2024 Emergency department Triage note Recently diagnosed with shingles and is here for increasing pain to area on abdomen. [facility] 08-10-2024 Physician Emergency department Note EMERGENCY DEPARTMENT ENCOUNTER Pt Name: Maria De Jesus Hogan Birthdate 1965 Date of evaluation: 08/10/2024 ED Provider: Catalino Waddell MD CHIEF COMPLAINT Chief Complaint Patient presents with Rash HISTORY OF PRESENT ILLNESS (Location/Symptom, Timing/Onset, Context/Setting, Quality, Duration, Modifying Factors, Severity) Note limiting factors. I wore appropriate PPE for the entirety of this encounter. HPI Maria De Jesus Hogan is a 58 y.o. who presents to the emergency department with chief complaint of pain associated with shingles rash on the right side of his torso. He was recently detoxed in the hospital for alcohol and was found to have shingles to the right side of his torso chest wall abdominal wall at that time. He was started on Valtrex and given a short course of pain pills upon discharge but has ran out. He has been taking NSAIDs. He states he is still detox from alcohol. Denies any fevers shortness of breath chest pain vomiting. Nursing Notes were reviewed. Limitations to history: None Outside historians: None REVIEW OF SYSTEMS Review of Systems Constitutional: Negative for chills and fever. HENT: Negative for sore throat. Eyes: Negative for visual disturbance. Respiratory: Negative for shortness of breath. Cardiovascular: Negative for chest pain. Skin: Positive for rash. Negative for color change. Neurological: Negative for syncope. All other systems reviewed and are negative. Pertinent positives and negatives as per HPI. 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) 11/28/2023 Alcohol withdrawal syndrome without complication (HCC) Alcohol withdrawal with inpatient treatment without complication (HCC) 01/20/2024 Alcohol withdrawal with inpatient treatment, uncomplicated (HCC) 06/02/2024 Alcohol withdrawal, uncomplicated (HCC) 08/31/2019 Alcohol withdrawal, with unspecified complication (HCC) 10/02/2019 Alcohol withdrawal, with unspecified complication (HCC) 10/02/2019 Alcoholic intoxication without complication (CMS/HCC) (HCC) 04/10/2024 Alcoholism ([facility]/HCC) (HCC) Anxiety Apical lung nodule Arthritis Maria De Jesus Cerebral artery occlusion with cerebral infarction (HCC) Cerebrovascular disease Depression GERD (gastroesophageal reflux disease) Maria De Jesus Hypertension Insomnia Lung nodule SURGICAL HISTORY Past Surgical History: Procedure Laterality Date COLONOSCOPY 06/10/2020 EGD/Dr Madison/B CYST REMOVAL face EGD (HISTORICAL) 07/23/2022 Dr. Estrella-[facility] SMALL INTESTINE SURGERY UPPER GASTROINTESTINAL ENDOSCOPY 09/27/2021 normal WISDOM TOOTH EXTRACTION CURRENT MEDICATIONS Previous Medications ALBUTEROL 108 (90 BASE) MCG/ACT INHALER Inhale 2 puffs every 6 hours as needed for wheezing or shortness of breath. GABAPENTIN (NEURONTIN) 400 MG CAPSULE Take 2 capsules (800 mg) by mouth 3 times daily for 6 days. IBUPROFEN 800 MG TABLET Take 1 tablet (800 mg) by mouth every 8 hours as needed for moderate pain (4-6) for up to 6 days. VALACYCLOVIR (VALTREX) 1 G TABLET Take 1 tablet (1,000 mg) by mouth 3 times daily for 5 days. ALLERGIES Bee venom, Nickel, and Tramadol FAMILY HISTORY Family History Problem Relation Name Age of Onset Depression Sister Maria De Jesus Hogan Other ([id number]) Sister Maria De Jesus Hogan agoraphobia Arthritis Sister Maria De Jesus Hogan Cancer Mother Maria De Jesus Hogan colon rectal cancer; dx after age 50 Other ([phone]) Mother Maria De Jesus Hogan alcoholism Alcohol abuse Mother Maria De Jesus Hogan Stroke Mother Maria De Jesus Hogan Other ([phone]) Father Maria De Jesus Hogan h/o rheumatic fever, cardiac arrest due to bee sting Hypertension Father Maria De Jesus Hogan SOCIAL HISTORY Social History Socioeconomic History Marital status: Tobacco Use Smoking status: Every Day Current packs/day: 2.00 Average packs/day: 2.0 packs/day for 38.8 years (77.7 ttl pk-yrs) Types: Cigarettes, Cigars Start date: 10/10/1985 Passive exposure: Past Smokeless tobacco: Never Tobacco comments: Started at 19, 2 PPD, 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 05/09/2024 Vaping Use Vaping status: Some Days Substance and Sexual Activity Alcohol use: Not Currently Alcohol/week: 4.0 standard drinks of alcohol Types: 4 Cans of beer per week Drug use: Never Sexual activity: Not Currently Partners: Female control/protection: Other Comment: live with Social Drivers of Health Financial Resource Strain: Low Risk (08/04/2024) Overall Financial Resource Strain (CARDIA) Difficulty of Paying Living Expenses: Not hard at all Food Insecurity: No Food Insecurity (08/04/2024) Hunger Vital Sign Worried About Running Out of Food in the Last Year: Never true Ran Out of Food in the Last Year: Never true Transportation Needs: No Transportation Needs (08/04/2024) PRAPARE - Transportation Lack of Transportation (Medical): No Lack of Transportation (Non-Medical): No Physical Activity: Inactive (08/04/2024) Exercise Vital Sign Days of Exercise per Week: 0 days Minutes of Exercise per Session: 0 min Stress: Stress Concern Present (08/04/2024) [place] [employer] - Occupational Stress Questionnaire Feeling of Stress : To some extent Social Connections: Moderately Isolated (08/04/2024) Social Connection and Isolation Panel [NHANES] Frequency of Communication with Friends and Family: Twice a week Frequency of Social Gatherings with Friends and Family: Twice a week Attends Synagogue Services: Never Active Member of Clubs or Organizations: No Attends Club or Organization Meetings: Never Marital Status: Intimate Partner Violence: Not At Risk (08/04/2024) Humiliation, Afraid, Rape, and Kick questionnaire Fear of Current or Ex-Partner: No Emotionally Abused: No Physically Abused: No Sexually Abused: No Housing Stability: Low Risk (08/04/2024) Housing Stability Vital Sign Unable to Pay for Housing in the Last Year: No Number of Times Moved in the Last Year: 0 Homeless in the Last Year: No SCREENINGS PHYSICAL EXAM ED Triage Vitals [08/10/24 1625] Temp Heart Rate Resp BP 36.6 C (97.8 F) 99 16 (!) 175/99 SpO2 Temp Source Heart Rate Source Patient Position 99 % Oral -- -- BP Location FiO2 (%) -- -- Physical Exam Vitals and nursing note reviewed. Constitutional: General: He is not in acute distress. Appearance: He is well-developed. He is not ill-appearing. HENT: Head: Normocephalic and atraumatic. Eyes: Conjunctiva/sclera: Conjunctivae normal. Cardiovascular: Rate and Rhythm: Normal rate and regular rhythm. Pulmonary: Effort: Pulmonary effort is normal. No respiratory distress. Breath sounds: Normal breath sounds. Abdominal: Palpations: Abdomen is soft. Tenderness: There is no abdominal tenderness. Comments: Evolving shingles rash noted to the right side of the torso without any superimposed cellulitis or drainage fluctuance or induration or streaking Musculoskeletal: General: No swelling. Cervical back: Neck supple. Skin: General: Skin is warm and dry. Capillary Refill: Capillary refill takes less than 2 seconds. Neurological: Mental Status: He is alert. Psychiatric: Mood and Affect: Mood normal. DIAGNOSTIC RESULTS Procedures/EKG: EKG was reviewed by myself. Physician EKG interpretation can be found in [facility] RADIOLOGY (Per Emergency Physician): Interpretation per the Radiologist below, if available at the time of this note: No orders to display ED BEDSIDE ULTRASOUND: Performed by ED Physician - none LABS: Labs Reviewed - No data to display All other labs were within normal range or not returned as of this dictation. EMERGENCY DEPARTMENT COURSE and DIFFERENTIAL DIAGNOSIS/MDM: Vitals: Vitals: 08/10/24 1625 BP: (!) 175/99 Pulse: 99 Resp: 16 Temp: 36.6 C (97.8 F) TempSrc: Oral SpO2: 99% Weight: 101 kg (223 lb) Height: 1.803 m (5' 11) 58-year-old male here for painful shingles rash. Differential shingles pain, no secondary bacterial infection noted, no other complaints. Patient clearly has a shingles rash which is noted to be painful so we will give him another course of oxycodone and have him follow-up. He is already on NSAIDs. Recommend topical lidocaine as well. Medical history impacting this visit includes recent shingles. Social history impacting this visit includes recent alcohol detox. I reviewed his discharge summary from 08/06/2024 after he was in the hospital for alcohol detox. Diagnoses as of 08/10/241652 Acute pain associated with herpes zoster Medications - No data to display REVAL: CRITICAL CARE TIME CONSULTS: None PROCEDURES: Unless otherwise noted below, none Procedures Patients symptoms are consistent with sepsis, severe sepsis, or septic shock (If yes use .sepsiscoremeasure): FINAL IMPRESSION 1. Acute pain associated with herpes zoster DISPOSITION Discharge 08/10/2024 04:49:47 PM PATIENT REFERRED TO: Lynda Rasheed MD [address] [place] [address] [address] [facility] [id number] In 1 week DISCHARGE MEDICATIONS: New Prescriptions LIDOCAINE (LIDODERM) 5 % PATCH Apply 1 patch topically daily for 5 days. Remove & discard patch within 12 hours or as directed by . OXYCODONE (ROXICODONE) 5 MG IMMEDIATE RELEASE TABLET Take 1 tablet (5 mg) by mouth every 8 hours as needed for severe pain (7-10) for up to 3 days. (Comment: Please note this report has been produced using speech recognition software and may contain errors related to that system including errors in grammar, punctuation, and spelling, as well as words and phrases that may be inappropriate. If there are any questions or concerns please feel free to contact the dictating provider for clarification.) Catalino Waddell MD (electronically signed) Emergency Medicine Provider Catalino Waddell MD 08/10/241652 [facility] 08-06-2024 Nurse Note Patient is A&O x4, cooperative, social. He is up steady, eating well, compliant with medications. He continues Valtrex for shingles. CIWA monitored. Order to discharge home received. Instructions, medications and appointments reviewed and he voiced understanding. He denies SI/HI/AVH. Belongings returned. Meds to beds given to patient. Escorted to [address] [place] [address], picked up by his . [facility] 08-06-2024 Nurse Note Patient is A&O x4, cooperative, social. He is up steady, eating well, compliant with medications. He continues Valtrex for shingles. CIWA monitored. Order to discharge home received. Instructions, medications and appointments reviewed and he voiced understanding. He denies SI/HI/AVH. Belongings returned. Meds to beds given to patient. Escorted to [address] [place] [address], picked up by his . 2 attempts done for blood draw. Unable to retrieve blood. 2nd nurse to attempt. Patient is up and steady, seen in group room. Pt is cooperative and med compliant. Pt denies SI/HI/AVH. Pt encouraged to notify staff for any questions and concerns. One episode of emesis noted shortly after administration of PRN oxycodone. Patient reports this is a normal occurrence for him-instructed to alert staff of any further potential episodes of emesis. PRN Zofran given at 1735-per patient, medication was effective. No further needs or concerns voiced. Safety maintained. PRN ibuprofen given at 1341 as a first line defense for c/o 8/10 pain in R rib/back-patient reports pain is associated with his recent shingles Dx. Per patient, first line defense was ineffective-second line PRN oxycodone administered at 1609. Patient instructed to alert staff if medication is ineffective-will continually monitor for effective pain management. No further needs or concerns voiced. Safety maintained. Patient seen in room at time of interview-presented with an appropriate affect. Mood is euthymic/bright. Patient up @patricio-gait is steady. Alert and oriented x4. Patient reports good appetite and sleep. Encouragement with ADLs provided. Social/pleasant/friendly with staff and peers-seen in attendance at group therapy. Cooperative with nursing care and assessment. Medication compliant. CIWA monitored per unit policy. Continues to endorse R rib/back pain-acute in nature-patient reports pain is due to shingles Dx-Lidocaine patch applied to area-per orders, PRN ibuprofen used as first line defense-PRN oxycodone given if ibuprofen is ineffective. Standard precautions continued. Denies all s/s of withdraw. Denies thoughts of harm to self or others. No delusions voiced/noted. No A/V/T hallucinations voiced/noted. Patient able to make needs known, and encouraged to do so. Education on appropriate call light usage reinforced. No s/s of physical concerns. Plan of care ongoing. Safety maintained. Patient is up and steady, seen in group room socializing. Pt is cooperative and med compliant. Pt has shingles on right flank and back. Pt denies SI/HI/AVH. Pt encouraged to notify staff for any questions and concerns. Administered PRN Oxycodone for shingles pain. Will monitor effectiveness. Patient withdrawn to room thus far. Independent with ADLs and ambulation, A&Ox4. Denies SI/HI/AVH thus far. Patient compliant with medications and treatment offered. Currently has shingles, on acyclovir and increased gabapentin. Shingles are scabbed to wrap from the right abdomen/flank around his back. Appetite, sleep poor, hygiene adequate. Encouraged to let staff know of any changes or concerns. Will monitor for safety this shift. Pt arrived from ER via cart accompanied by security and transport. Pt steady on his feet at this time x1 assist, . Pt skin check completed upon arrival to unit. Pt has shingles to right flank and back. Pt drinking 8-10 beers a day. Pt smokes 1 and a half packs a day of cigarettes. Denies any other drug use, USACS consulted for shingles management , sores and rash located on right flank and back. Dr. Abe Frey at the bedside to assess whether pt needs isolation, okayed for just standard precautions. Pt alert and oriented, med compliant, pt denies SI/HI/AVH, NV&D. Pt given ibuprofen for right flank and back pain and trazodone for sleep. Pt encouraged to update staff with any change in condition. Will monitor pt for safety. documented in this encounter [facility] 08-06-2024 Hospital course Narrative Images from the original note were not included. ADDICTION MEDICINE DETOX UNIT DISCHARGE SUMMARY Patient MRN Maria De Jesus Hogan [id number] Admit Date Discharge Date 08/03/2024 08/06/2024 Visit Status Admission Primary Care Physician Lynda Rasheed MD Admitting Physician Bryan Rodriguez MD [facility] Reason for Admission Detox from alcohol. 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 DETOXIFICATION COURSE Detoxed with valium taper and prn medications for alcohol withdrawal symptoms. Initial history copied from provider note dated 08/03/24: Maria De Jesus Hogan is a 58 y.o. year old male with a PMH of alcohol abuse, alcohol withdrawal, arthritis, cerebral artery occlusion with cerebral infarction, cerebrovascular disease, GERD, HTN, insomnia that was admitted for detox from alcohol. Patient has a long history of alcohol use disorder and has been admitted to the [facility] multiple times in the past for similar presentation, with last known admission to the detox unit on 06/02/2024 the patient left [facility] on 06/04/2024. During evaluation today, patient was evaluated for acute withdrawal symptoms, which patient denied. Patient was observed ambulating with no alterations or deficits in his gait. Patient did not appear to be in any acute distress. Patient reports that he has not experienced seizures during this admission. Patient reports that his bilateral hand tremors have dissipated. He was still reporting pain from his shingles infection but that it has been well controlled during this admission. Patient was denying SI/HI, AVH and reported one episode on vomiting which has since resolved. Patient was deemed psychiatrically and medically stable for discharge, and the discharge orders were placed. Vitals height is 1.81 m (5' 11.26) and weight is 102 kg (225 lb). His temporal temperature is 36.2 C (97.1 F). His blood pressure is 144/92 and his pulse is 79. His respiration is 17 and oxygen saturation is 94%. Physical Exam Constitutional: General: He is not in acute distress. Appearance: He is not ill-appearing or diaphoretic. HENT: Head: Normocephalic. Mouth/Throat: Mouth: Mucous membranes are moist. Pharynx: Oropharynx is clear. Eyes: Extraocular Movements: Right eye: No nystagmus. Left eye: No nystagmus. Cardiovascular: Rate and Rhythm: Normal rate and regular rhythm. Heart sounds: No murmur heard. No friction rub. No gallop. Pulmonary: Effort: No respiratory distress. Breath sounds: Wheezing present. Abdominal: General: There is no distension. Palpations: There is no mass. Tenderness: There is no abdominal tenderness. There is no guarding. Skin: Findings: Rash present. Rash is vesicular. Neurological: General: No focal deficit present. Mental Status: He is alert and oriented to person, place, and time. Cranial Nerves: Cranial nerves 2-12 are intact. Motor: No weakness, tremor or seizure activity. Gait: Gait normal. Comments: No tremors observed, no reported seizures. No tongue fasciculations Psychiatric: Attention and Perception: Attention and perception normal. Mood and Affect: Affect normal. Mood is not anxious or depressed. Speech: Speech normal. Behavior: Behavior normal. Behavior is cooperative. Thought Content: Thought content does not include homicidal or suicidal ideation. Labs Results for orders placed or performed during the hospital encounter of 08/03/24 SARS-CoV-2 Antigen Collection Time: 08/03/24 5:34 PM Specimen: Nasal; Swab Result Value Ref Range SARS-CoV-2 Antigen Negative Negative CBC auto differential Collection Time: 08/03/24 5:38 PM Result Value Ref Range Auto WBC 5.0 3.6 - 10.7 10*3/uL RBC 5.05 4.40 - 5.90 10*6/uL Hemoglobin 17.1 13.0 - 18.0 g/dL Hematocrit 48.4 40.0 - 52.0 % MCV 95.8 77.0 - 99.0 fL MCH 33.9 26.0 - 34.0 pg MCHC 35.3 30.5 - 36.0 % RDW 13.2 11.5 - 15.0 % Platelets 137 (L) 140 - 440 10*3/uL MPV 8.8 (L) 9.0 - 12.7 fL nRBC 0.0 0.0 - 2.0 /100 WBCs Neutrophils Relative 51.7 38.0 - 82.0 % Lymphocytes Relative 33.3 15.0 - 45.0 % Monocytes Relative 12.8 5.0 - 13.0 % Eosinophils Relative 1.2 0.0 - 6.0 % Basophils Relative 0.6 0.0 - 2.0 % Immature Grans % 0.4 0.0 - 2.0 % Neutrophils Absolute 2.6 1.8 - 7.5 10*3/uL Lymphocytes Absolute 1.7 1.0 - 4.3 10*3/uL Monocytes Absolute 0.6 0.0 - 0.9 10*3/uL Eosinophils Absolute 0.1 0.0 - 0.5 10*3/uL Basophils Absolute 0.0 0.0 - 0.2 10*3/uL Immature Grans Absolute 0.0 <0.1 10*3/uL Comprehensive metabolic panel Collection Time: 08/03/24 5:38 PM Result Value Ref Range SODIUM 136 136 - 145 mmol/L POTASSIUM 4.2 3.5 - 5.1 mmol/L CHLORIDE 98 98 - 107 mmol/L CARBON DIOXIDE 26 22 - 29 mmol/L ANION GAP 12 3 - 13 mmol/L UREA NITROGEN 5 (L) 9 - 23 mg/dL CREATININE 0.64 (L) 0.72 - 1.25 mg/dL GLUCOSE 113 (H) 74 - 100 mg/dL CALCIUM 8.4 8.4 - 10.2 mg/dL AST (SGOT) 42 (H) <34 U/L ALT 32 <40 U/L ALKALINE PHOSPHATASE 103 40 - 150 U/L ALBUMIN 3.6 3.5 - 5.0 g/dL BILIRUBIN, TOTAL 0.3 <1.2 mg/dL TOTAL PROTEIN 7.4 6.4 - 8.3 g/dL eGFR >90.0 >60.0 mL/min/1.73m*2 Ethanol Collection Time: 08/03/24 5:38 PM Result Value Ref Range ETHANOL IN SER/PLAS 375 (HH) <10 mg/dL ECG 12 lead Collection Time: 08/03/24 5:54 PM Result Value Ref Range Heart Rate 96 bpm QRSD Interval 86 ms QT Interval 364 ms QTC Interval 461 ms P [place] 35 degrees QRS [place] 80 degrees T Wave [place] 47 degrees VA Interval 154 ms Drug screen panel, emergency Collection Time: 08/03/24 6:08 PM Result Value Ref Range AMPHETAMINE SCREEN Negative BARBITURATES SCREEN Negative BENZODIAZEPINE SCREEN Negative COCAINE METAB. SCREEN Negative METHADONE SCREEN Negative OPIATES SCREEN Negative OXYCODONE SCREEN Negative PHENCYCLIDINE SCREEN Negative FENTANYL SCREEN, UR QUAL Negative Carbohydrate Deficient Transferrin Collection Time: 08/04/24 9:48 AM Result Value Ref Range CARBOHYDRATE DEFICIENT TRANSFERRIN 7.5 (H) <1.4 % Comprehensive metabolic panel Collection Time: 08/06/24 6:56 AM Result Value Ref Range SODIUM 138 136 - 145 mmol/L POTASSIUM 4.1 3.5 - 5.1 mmol/L CHLORIDE 100 98 - 107 mmol/L CARBON DIOXIDE 31 (H) 22 - 29 mmol/L ANION GAP 7 3 - 13 mmol/L UREA NITROGEN 5 (L) 9 - 23 mg/dL CREATININE 0.75 0.72 - 1.25 mg/dL GLUCOSE 111 (H) 74 - 100 mg/dL CALCIUM 8.8 8.4 - 10.2 mg/dL AST (SGOT) 38 (H) <34 U/L ALT 28 <40 U/L ALKALINE PHOSPHATASE 96 40 - 150 U/L ALBUMIN 3.3 (L) 3.5 - 5.0 g/dL BILIRUBIN, TOTAL 0.5 <1.2 mg/dL TOTAL PROTEIN 6.5 6.4 - 8.3 g/dL eGFR >90.0 >60.0 mL/min/1.73m*2 Imaging ECG 12 lead Result Date: 08/04/2024 Sinus rhythm Probable anterior infarct, age indeterminate Electronically Signed On 08-04-2024 02:23:55 EDT by Anaya Wallace Scheduled Inpatient Meds baclofen, 10 mg, Oral, TID diazePAM, 5 mg, Oral, q6h folic acid, 1 mg, Oral, Daily gabapentin, 800 mg, Oral, TID Lidocaine, 1 patch, TransDERmal, Daily pantoprazole, 40 mg, Oral, Daily thiamine, 100 mg, Oral, Daily valACYclovir, 1,000 mg, Oral, TID PRN Inpatient Meds PRN medications: albuterol, aluminum & magnesium hydroxide-simethicone, cloNIDine, diazePAM, dicyclomine, hydrOXYzine pamoate, ibuprofen, naloxone, nicotine polacrilex, ondansetron ODT OR ondansetron, oxyCODONE, traZODone DISCHARGE INSTRUCTIONS Activity activity as tolerated. Disposition Home. Medication List START taking these medications ibuprofen 800 MG tablet Take 1 tablet (800 mg) by mouth every 8 hours as needed for moderate pain (4-6) for up to 6 days. oxyCODONE 5 MG immediate release tablet Commonly known as: Roxicodone Take 1 tablet (5 mg) by mouth every 6 hours as needed for severe pain (7-10) for up to 3 days. valACYclovir 1 g tablet Commonly known as: Valtrex Take 1 tablet (1,000 mg) by mouth 3 times daily for 5 days. CHANGE how you take these medications gabapentin 400 MG capsule Commonly known as: Neurontin Take 2 capsules (800 mg) by mouth 3 times daily for 6 days. What changed: medication strength how much to take CONTINUE taking these medications albuterol 108 (90 Base) MCG/ACT inhaler Inhale 2 puffs every 6 hours as needed for wheezing or shortness of breath. STOP taking these medications calcipotriene 0.005 % cream Commonly known as: Dovonex clobetasol 0.05 % cream Commonly known as: Temovate folic acid 1 MG tablet Commonly known as: Folvite melatonin 5 MG tablet Multiple Vitamins tablet naltrexone 50 MG tablet Commonly known as: Depade nicotine polacrilex 4 MG lozenge Commonly known as: Nicotine Mini pantoprazole 40 MG EC tablet Commonly known as: ProtoNix thiamine 100 MG tablet Commonly known as: (Vitamin B-1) Thiamine Mononitrate 100 MG tablet Commonly known as: Vitamin B1 Vivitrol injection Generic drug: naltrexone ER Where to Get Your Medications These medications were sent to [facility] [address] [place] [id number] Hours: Saturday to Saturday 10 am to 6 pm gabapentin 400 MG capsule ibuprofen 800 MG tablet oxyCODONE 5 MG immediate release tablet valACYclovir 1 g tablet Follow Up [facility] [address] [place] [address] Go on 08/13/2024 At 1:30 PM for intake assessment for intensive outpatient program and addiction medicine follow-up. Future Appointments Date Time Provider Department Center 08/13/2024 1:30 PM Ammon Abdul [facility] ADD IOP None 10/21/2024 3:20 PM Lynda Rasheed MD [facility] The patient was also instructed to: Attend AA/NA meetings or a similar 12-step program. Abstain from any mind or mood altering substances that are not prescribed. Follow up with their primary care doctor and/or psychiatrist as soon as possible. Pending studies or issues to follow up with: CDT level was 7.5 this admission. Time spent on discharge summary: > 30 minutes SIGNED: Robert Coats MD 08/06/2024, 11:21 AM Cosigned by Jonatan Mckeon MD at 08/06/2024 2:46 PM EDT Associated attestation - Jonatan Mckeon MD - 08/06/2024 2:46 PM EDT I saw the patient on the day of discharge and agree with the discharge plans and disposition as recorded by the resident. I personally spent over 30 minutes in the discharge planning process. Jonatan Mckeon MD documented in this encounter [facility] 08-06-2024 Note [facility] 08-06-2024 Note Formatting of this n ote might be different from the original. Social work consult placed for patient. None of the 5 areas of S NAHOMY noted at current time. Social work consult cleared [facility] 08-06-2024 Note Formatting of this n ote might be different from the original. Social work consult placed for patient. None of the 5 areas of S NAHOMY noted at current time. Social work consult cleared [facility] 08-06-2024 Miscellaneous Notes Social work consult placed for patient. None of the 5 areas of S NAHOMY noted at current time. Social work consult cleared Patient being discharged this date. Social work met with patient at bedside. Patient stated he feels he is ready to leave and denies SI/HI/AVH. Patient will be returning to his home with transportation provided by his . Patient is agreeable to follow-up as scheduled with [facility]OP at the [place] office on 08/13 at 130. Patient denied any other social work needs at this time. Patient acknowledged she may contact the unit should needs arise after discharge. Problem: Drug Abuse/Detox Goal: Will have no detox symptoms and will verbalize plan for changing drug-related behavior Outcome: Progressing Problem: Potential for Substance Withdrawal Goal: Verbalizes signs/symptoms of withdrawal Outcome: Progressing Goal: Reports signs/symptoms of withdrawal Outcome: Progressing Goal: Free of withdrawal symptoms Outcome: Progressing Department: [facility] Group Topic: Recreation Therapy Group Date: 08/05/2024 Start Time: 1035 End Time: 1135 Facilitators: Aurora Camarena Number of Participants: 6 Group Name: Recreation Therapy Treatment Modality: Recreation Therapy Purpose: enhance coping skills and build self awareness, reconnect to leisure, support socialization Summary: Table Topics - To allow Patients the opportunity to explore self awareness and socialization through leisure engagement. Discussion to focus on their experience of participation, as well as, the process of reconnection to leisure interests. Name: Maria De Jesus Hogan Date of : 1965 MR: [id number] Appearance: Good eye contact Affect: Appropriate Behavior: Pleasant Alertness: Alert Speech: Appropriate Level/Quality of Participation: engaged Interactions with others: supportive Interventions utilized were Building rapport and engagement Patient's Response to Intervention: Patient came in toward the end of group and engaged in remaining portion of intervention. Patient was observed being interactive with peers and laughing during the group at times. Encouragement offered in utilizing healthy leisure pursuits to support coping and recovery. Continue to encourage patient participation in groups. 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 Atelectasis Hyponatremia Pneumatosis coli UGIB (upper gastrointestinal bleed) Hypochloremia Transaminitis Hematemesis with nausea Weakness of extremity Conversion reaction BPH (benign prostatic hyperplasia) Tachycardia Alcoholic peripheral neuropathy (HCC) Alcohol withdrawal syndrome with complication (HCC) Shingles (herpes zoster) polyneuropathy Problem: Drug Abuse/Detox Goal: Will have no detox symptoms and will verbalize plan for changing drug-related behavior Outcome: Progressing Problem: Potential for Substance Withdrawal Goal: Verbalizes signs/symptoms of withdrawal Outcome: Progressing Goal: Reports signs/symptoms of withdrawal Outcome: Progressing Goal: Free of withdrawal symptoms Outcome: Progressing Patient scheduled for [facility] intake assessment on 08/13/2024 at 1:30 PM. All information included in patient's discharge paperwork. Patient reports plans to engage in [facility]. Declining residential as an option at current time. ELDER COUNSELOR will assist with scheduling patient intake appointment. Behavioral Health Psycho-Social Assessment (Social Work) Date: 08/04/2024 Patient Name: Maria De Jesus Hogan : 1965 Identifying Information: Patient is a 58-year-old male mated to [facility] for detox and alcohol. Patient is well-known to addiction medicine team. Previously on the unit on 06/02/2024 but left AMA on 06/04/2024. Reports that his family members had plans to send him out of state to residential treatment. Patient reports that he was started on Vivitrol and last injection was on 07/02/2024. Reports having 2 weeks that he was alcohol free but then started drinking daily again. Presenting Problem: Patient presented to the ED on 08/03/2024 requesting detox of alcohol. Came in with who is also requesting detox. Longstanding history of alcohol use disorder. Reports after last admission he started on Vivitrol. Last injection 07/02/2024. Reports 2 weeks of sobriety but then started drinking again. Patient reports he is drinking 69, 12 ounce beers daily. Reports they are 5 to 8% ABV. No history of alcohol withdrawal seizures. No current SI/HI. Last drink was just prior to arrival in the ED. Psychiatric History: Patient has mental health diagnosis depression anxiety. Patient denies being on any medication for mental health needs. Patient has previous engagement with outpatient mental health providers but denies any current treatment. Patient has history of noncompliance with treatment medications Patient has history of psychiatric admission. Reports admissions were due to suicidal ideation while intoxicated. Denies history of recent or past history suicide attempts. Patient denies current SI/HI/AVH. Patient does have an extensive history of passive SI secondary to intoxication. Patient denies plan, intent, or method but reports more increased feelings of depression and sadness. Patient denies recent or past history of SIB. Substance Abuse/Use: Patient reports that he is currently drinking upwards of 9, 24 ounce Natty Kelli beers daily. Patient reports his last drink was 08/03/2024.. Patient labs are positive for alcohol (0.175). Patient first drank alcohol when he was [age] years old. Patient reports that his use was regular in his 20s, and problematic 12 years ago. He cannot identify a trigger to his problematic use, other than, I like beer . He drinks the point of intoxication, blackouts, and vomiting. He denies history of withdrawal seizure, alcohol overdoses, or DTs. Patient does have extensive history of falls while intoxicated. Patient denies any history of MAT engagement. Patient reports his longest period of sobriety was 6 months. Patient most recently only being able to maintain sobriety for 2 weeks. Patient has previous history of detox occurring on 06/02/2024 (AMA), 05/07/2024, 01/23/2024, 07/27/2023, 07/08/2023, 02/08/2023, 05/20/2023 (medical), 10/25/2021, 02/15/2021 (left AMA), 06/09/20, 10/01/19, 08/31/19 (left AMA), 2016 (left AMA), and 2014 (left AMA). He denies history of residential treatment Patient reports previous history of engagement with AA as well as IOP. Patient most recently was assessed for IOP but did not complete any programming and was dismissed. Medical/Self-care Issues: Patient has medical issues such as COPD, Lombardo's esophagus, macrocytosis, and HTN. Patient has ongoing struggles with self-care secondary to substance use disorder. Patient is increased in both frequency and tolerance over time. Patient also report struggling to recover from the effects of his substance use. Patient reports experiencing poor nutrition and sleep secondary to his substance use. Legal/Trauma/ History: Patient denies any current legal issues. Patient reports past legal history of child support violations. Patient denies any history of childhood abuse. Patient does report however his father when he was 11 years old which was a traumatic incident to him. Patient denies any history of trauma abuse as an adult. Patient denies any history [place] or status. Family Constellation/Childhood History: Patient reports that he is currently to his living in [facility]. Patient reports that he has 3 biological children and 4 stepchildren. Patient reports that his father in his 11 years old. Patient did not report his mother is still alive currently. Patient was born and raised in [place], [place] by his mother and father. He reports that his father when he was 11 years old, and this was traumatic for him. Patient reports that he was raised primarily by his mother for the remainder of his childhood. He denies childhood abuse. Education/Work: Patient reports that he graduated high school. 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 Patient denies SSI/SSD. Cultural/Spirituality/Leisure: Patient denies any cultural needs or concerns at the current time. Patient denies identify any yarsanism preference. It is unknown if patient is attending services anywhere currently. Patient reports he used to enjoy leisure activities such as golfing but has been unable to do so due to his ongoing substance use disorder. Support Systems/Collateral Information: Patient reports that his is his primary social. Patient reports that she is sober and supportive of his recovery needs and efforts. Patient reports that his is aware that he is admitted to the hospital. C-SSRS Actual Attempt (Past 3 Months): No (Patient has history of psychiatric admission. Reports admissions were due to suicidal ideation while intoxicated. Denies history of recent history suicide attempts) Actual Attempt (Lifetime): No (Patient denies any past history of suicide attempts) Interrupted Attempts (Past 3 Months): No (Patient denies) Interrupted Attempts (Lifetime): No (Patient denies) Aborted or Self-Interrupted Attempt (Past 3 Months): No (Patient denies) Aborted or Self-Interrupted Attempt (Lifetime): No (Patient denies) Preparatory Acts or Behavior (Past 3 Months): No (Patient denies) Preparatory Acts or Behavior (Lifetime): No (Patient denies) Has subject engaged in non-suicidal self-injurious behavior? (Past 3 Months): No (Patient denies any recent history of SIB) Has subject engaged in non-suicidal self-injurious behavior? (Lifetime): No (Patient denies any past history of SIB) Suicidal Ideation: (Patient denies current SI/HI/AVH. Patient does have an extensive history of passive SI secondary to intoxication. Patient denies plan, intent, or method but reports more increased feelings of depression and sadness.) Activating Events (Recent): Recent loss(es) or other significant negative event(s) (legal, financial, relationship, etc.) Describe:: Ongoing struggles with substance use Treatment History: Previous psychiatric diagnoses and treatments, Non-compliant with treatment, Not receiving treatment (MH DX depression and anxiety. No Rx for MH. Patient has previous engagement with outpatient mental health providers but denies any current treatment. Patient has history of noncompliance with treatment medications) Clinical Status (Recent): Substance abuse or dependence, Hopelessness, Major depressive episode, Agitation or severe anxiety, Perceived burden on family or others, Highly impulsive behavior (Risk factors) Protective Factors (Recent): Responsibility to family or others and/or living with family, Supportive social network or family, Identifies reasons for living (Protective factors) Describe any suicidal, self-injurious or aggressive behavior (include dates): Patient has history of psychiatric admission. Reports admissions were due to suicidal ideation while intoxicated. Denies history of recent or past history suicide attempts. Patient denies current SI/HI/AVH. Patient does have an extensive history of passive SI secondary to intoxication. Patient denies plan, intent, or method but reports more increased feelings of depression and sadness. Patient denies recent or past history of SIB. Patient has mental health diagnosis depression anxiety. Patient denies being on any medication for mental health needs. Patient has previous engagement with outpatient mental health providers but denies any current treatment. Patient has history of noncompliance with treatment medications Plan: Current plan is for patient stabilization. ELDER COUNSELOR patient will continue work together to establish appropriate aftercare plan based on patient sobriety, needs, and resource available to local community. Patient encouraged to engage in all activities that are offered to them while they are on the unit. Patient report needing additional current time. Patient encouraged to seek out ELDER COUNSELOR unit staff should they identify any additional needs or concerns. Comment: Please note this report has been produced using speech recognition software and may contain errors related to that system including errors in grammar, punctuation, and spelling, as well as words and phrases that may be inappropriate. If there are any questions or concerns please feel free to contact the dictating provider for clarification. Care plan reviewed documented in this encounter [facility] 08-06-2024 Note Formatting of this n ote might be different from the original. Patient being discharged this date. Social work met with patient at bedside. Patient stated he feels he is ready to leave and denies SI/HI/AVH. Patient will be returning to his home with transportation provided by his . Patient is agreeable to follow-up as scheduled with [facility] at the [facility] on 08/13 at 130. Patient denied any other social work needs at this time. Patient acknowledged she may contact the unit should needs arise after discharge. [facility] Work Phone: 08-06-2024 Note Formatting of this n ote might be different from the original. Patient being discharged this date. Social work met with patient at bedside. Patient stated he feels he is ready to leave and denies SI/HI/AVH. Patient will be returning to his home with transportation provided by his . Patient is agreeable to follow-up as scheduled with [facility]OP at the [facility] on 08/13 at 130. Patient denied any other social work needs at this time. Patient acknowledged she may contact the unit should needs arise after discharge. [facility] Work Phone: 08-06-2024 Plan of care note Problem: Drug Abuse/Detox Goal: Will have no detox symptoms and will verbalize plan for changing drug-related behavior Outcome: Progressing Problem: Potential for Substance Withdrawal Goal: Verbalizes signs/symptoms of withdrawal Outcome: Progressing Goal: Reports signs/symptoms of withdrawal Outcome: Progressing Goal: Free of withdrawal symptoms Outcome: Progressing [facility] 08-06-2024 History of Present illness Narrative Hospitalist Progress Note Subjective: Admit Date: 08/03/2024 PCP: Lynda Rasheed MD Room#: [id number] A Chief Complaint Patient presents with Rash On abdomen Back Pain Middle of back. No known injury. 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 Requesting detox Brief Hospital course: Maria De Jesus is a 58 y.o. male pmhx below including alcohol use disorder, generalized anxiety, GERD, depression and hypertension who presented to the emergency department as his was requesting detox from alcohol. Patient with a longstanding history of alcohol use disorder, well-known to addiction medicine team, has been previously admitted in our detox unit. Endorsed being started on Vivitrol on his last admission, last injection was July 02, did have approximately 2 weeks in which she was alcohol free but then started drinking again daily. Patient with no history of alcohol withdrawal seizure. Cleared in the emergency department and admitted under addiction medicine team for acute detox. Medical team consulted for evaluation of rash determined to be shingles. Started on antivirals. Interval History: 08/06/2024-No overnight issues. Current pain regimen help with pain. Case and plan discussed with patient. All questions answered. Past Medical History: Past Medical History: Diagnosis Date Alcohol abuse Alcohol dependence with withdrawal (HCC) 08/31/2019 Alcohol intoxication without use disorder, uncomplicated (HCC) 10/01/2019 Alcohol use disorder 09/10/2022 Alcohol withdrawal syndrome with complication (HCC) 09/27/2021 Alcohol withdrawal syndrome with complication, with unspecified complication (HCC) 05/07/2024 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) 11/28/2023 Alcohol withdrawal syndrome without complication (HCC) Alcohol withdrawal with inpatient treatment without complication (HCC) 01/20/2024 Alcohol withdrawal with inpatient treatment, uncomplicated (HCC) 06/02/2024 Alcohol withdrawal, uncomplicated (HCC) 08/31/2019 Alcohol withdrawal, with unspecified complication (HCC) 10/02/2019 Alcohol withdrawal, with unspecified complication (HCC) 10/02/2019 Alcoholic intoxication without complication (CMS/HCC) (HCC) 04/10/2024 Alcoholism (CMS/HCC) (HCC) Anxiety Apical lung nodule Arthritis Maria De Jesus Cerebral artery occlusion with cerebral infarction (HCC) Cerebrovascular disease Depression GERD (gastroesophageal reflux disease) Maria De Jesus Hypertension Insomnia Lung nodule Adult diet Regular 24HR INTAKE/OUTPUT: No intake or output data in the 24 hours ending 08/06/24 0909 LABS: CBC: Recent Labs 08/03/24 1738 WBC 5.0 RBC 5.05 HGB 17.1 HCT 48.4 MCV 95.8 RDW 13.2 PLT 137* BMP: Recent Labs 08/03/24 1738 08/06/24 0656 NA 136 138 K 4.2 4.1 CL 98 100 CO2 26 31* BUN 5* 5* CREATININE 0.64* 0.75 GLUCOSE 113* 111* CALCIUM 8.4 8.8 ANIONGAP 12 7 LIVER PROFILE: Recent Labs 08/03/248 08/06/24 0656 AST 42* 38* ALT 32 28 BILITOT 0.3 0.5 ALKPHOS 103 96 PROT 7.4 6.5 PT/INR: No results for input(s): PROTIME, INR in the last 72 hours. CARDIAC ENZYMES: No results for input(s): TROPONINI in the last 72 hours. Procalcitonin: No results found for: PROCAL COVID-19 PCR: No results for input(s): COVID19 in the last 72 hours. Objective: Vitals: BP 144/92 Pulse 79 Temp 36.2 C (97.1 F) (Temporal) Resp 17 Ht 5' 11.26 (1.81 m) Wt 225 lb (102 kg) SpO2 94% BMI 31.15 kg/m Pulse Ox: SpO2 Av.4 % Min: 92 % Max: 100 % Supplemental O2: Physical Exam Cardiovascular: Rate and Rhythm: Normal rate. Pulses: Normal pulses. Pulmonary: Breath sounds: Rhonchi and rales present. Skin: Findings: Rash present. Comments: Right sided dermatomal vesicular rash Medications: Scheduled PRN baclofen, 10 mg, Oral, TID diazePAM, 5 mg, Oral, q6h folic acid, 1 mg, Oral, Daily gabapentin, 800 mg, Oral, TID Lidocaine, 1 patch, TransDERmal, Daily pantoprazole, 40 mg, Oral, Daily thiamine, 100 mg, Oral, Daily valACYclovir, 1,000 mg, Oral, TID PRN medications: albuterol, aluminum & magnesium hydroxide-simethicone, cloNIDine, diazePAM, dicyclomine, hydrOXYzine pamoate, ibuprofen, naloxone, nicotine polacrilex, ondansetron ODT OR ondansetron, oxyCODONE, traZODone Continuous Assessment Data: (CAT1) Reviewed 3 or more notes from different specialty or health system (each=1). (LOW: 2x CAT1 or independent historian MOD: 3x CAT1 or 1x CAT3 EXTENSIVE: 3x CAT1 and 1x CAT3) Acute, acute on chronic, unstable/uncontrolled chronic problems/diagnoses: Alcohol withdrawal syndrome without complication Alcohol use disorder Suspect undiagnosed COPD Tobacco abuse (active) Stable chronic problems affecting care, new non-acute diagnoses: Hypertension Generalized anxiety Cerebrovascular disease GERD Depression Neuropathy Plan As a result of the above findings & factors, the following mgmt was pursued: - addiction med service is primary, [facility] protocol - continue PO Valtrex 1000 mg x 5 more days; continue gabapentin 800 mg 3 times daily x 5 more days at discharge - should have full PFTs as outpatient - smoking cessation encouraged - PT/OT/CM/SW - delirium precautions: increase activity - DVT prophylaxis: encourage ambulation Complexity: Acute illness or injury posing a threat to life or body function (HIGH). Risk: Prescription drug/IVF/colloid was initiated, discontinued, adjusted; or reviewed with decision to maintain current orders (MOD). Advance Directive: Full Code Anticipated Discharge - Date - 08/06/24 - Location - Home - Pending the following - per primary Total time spent (which include face to face and non face to face encounters) : 35 minutes Extended Emergency Contact Information Primary Emergency Contact: [place],April Mobile Relation: Spouse Rashad GastelumDO Division of Hospital Medicine [place] [place] Progress Note Subjective: Admit Date: 08/03/2024 PCP: Lynda Rasheed MD Room#: E4-404/E4-404 A Chief Complaint Patient presents with Rash On abdomen Back Pain Middle of back. No known injury. 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 Requesting detox Brief Hospital course: Maria De Jesus is a 58 y.o. male pmhx below including alcohol use disorder, generalized anxiety, GERD, depression and hypertension who presented to the emergency department as his was requesting detox from alcohol. Patient with a longstanding history of alcohol use disorder, well-known to addiction medicine team, has been previously admitted in our detox unit. Endorsed being started on Vivitrol on his last admission, last injection was July 02, did have approximately 2 weeks in which she was alcohol free but then started drinking again daily. Patient with no history of alcohol withdrawal seizure. Cleared in the emergency department and admitted under addiction medicine team for acute detox. Medical team consulted for evaluation of rash determined to be shingles. Started on antivirals. Interval History: 08/05/2024-No overnight issues. Only complaint is burning pain right flank along rash. Case and plan discussed with patient. All questions answered. Past Medical History: Past Medical History: Diagnosis Date Alcohol abuse Alcohol dependence with withdrawal (HCC) 08/31/2019 Alcohol intoxication without use disorder, uncomplicated (HCC) 10/01/2019 Alcohol use disorder 09/10/2022 Alcohol withdrawal syndrome with complication (HCC) 09/27/2021 Alcohol withdrawal syndrome with complication, with unspecified complication (HCC) 05/07/2024 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) 11/28/2023 Alcohol withdrawal syndrome without complication (HCC) Alcohol withdrawal with inpatient treatment without complication (HCC) 01/20/2024 Alcohol withdrawal with inpatient treatment, uncomplicated (HCC) 06/02/2024 Alcohol withdrawal, uncomplicated (HCC) 08/31/2019 Alcohol withdrawal, with unspecified complication (HCC) 10/02/2019 Alcohol withdrawal, with unspecified complication (HCC) 10/02/2019 Alcoholic intoxication without complication (CMS/HCC) (HCC) 04/10/2024 Alcoholism (CMS/HCC) (HCC) Anxiety Apical lung nodule Arthritis Maria De Jesus Cerebral artery occlusion with cerebral infarction (HCC) Cerebrovascular disease Depression GERD (gastroesophageal reflux disease) Maria De Jesus Hypertension Insomnia Lung nodule Adult diet Regular 24HR INTAKE/OUTPUT: No intake or output data in the 24 hours ending 08/05/24 1254 LABS: CBC: Recent Labs 08/03/24 1738 WBC 5.0 RBC 5.05 HGB 17.1 HCT 48.4 MCV 95.8 RDW 13.2 PLT 137* BMP: Recent Labs 08/03/24 1738 NA 136 K 4.2 CL 98 CO2 26 BUN 5* CREATININE 0.64* GLUCOSE 113* CALCIUM 8.4 ANIONGAP 12 LIVER PROFILE: Recent Labs 08/03/24 1738 AST 42* ALT 32 BILITOT 0.3 ALKPHOS 103 PROT 7.4 PT/INR: No results for input(s): PROTIME, INR in the last 72 hours. CARDIAC ENZYMES: No results for input(s): TROPONINI in the last 72 hours. Procalcitonin: No results found for: PROCAL COVID-19 PCR: No results for input(s): COVID19 in the last 72 hours. Objective: Vitals: BP (!) 148/102 Pulse 93 Temp 36.6 C (97.9 F) (Temporal) Resp 16 Ht 5' 11.26 (1.81 m) Wt 225 lb (102 kg) SpO2 92% BMI 31.15 kg/m Pulse Ox: SpO2 Av % Min: 92 % Max: 96 % Supplemental O2: Physical Exam Cardiovascular: Rate and Rhythm: Normal rate. Pulses: Normal pulses. Pulmonary: Breath sounds: Rhonchi and rales present. Skin: Findings: Rash present. Comments: Right sided dermatomal vesicular rash Medications: Scheduled PRN acyclovir, 800 mg, Oral, 5x daily baclofen, 10 mg, Oral, TID diazePAM, 5 mg, Oral, q6h folic acid, 1 mg, Oral, Daily gabapentin, 800 mg, Oral, TID Lidocaine, 1 patch, TransDERmal, Daily pantoprazole, 40 mg, Oral, Daily thiamine, 100 mg, Oral, Daily PRN medications: albuterol, aluminum & magnesium hydroxide-simethicone, cloNIDine, diazePAM, dicyclomine, hydrOXYzine pamoate, ibuprofen, naloxone, nicotine polacrilex, ondansetron ODT OR ondansetron, oxyCODONE, traZODone Continuous Assessment Data: (CAT1) Reviewed 3 or more notes from different specialty or health system (each=1). (LOW: 2x CAT1 or independent historian MOD: 3x CAT1 or 1x CAT3 EXTENSIVE: 3x CAT1 and 1x CAT3) Acute, acute on chronic, unstable/uncontrolled chronic problems/diagnoses: Alcohol withdrawal syndrome without complication Alcohol use disorder Suspect undiagnosed COPD Tobacco abuse (active) Stable chronic problems affecting care, new non-acute diagnoses: Hypertension Generalized anxiety Cerebrovascular disease GERD Depression Neuropathy Plan As a result of the above findings & factors, the following mgmt was pursued: - addiction med service is primary, CIWA protocol - stop Acyclovir, start PO Valtrex 1000 mg x6 more days; continue gabapentin 800 mg 3 times daily x 6 more days at discharge - should have full PFTs as outpatient - smoking cessation encouraged - am labs, replace lytes prn - PT/OT/CM/SW - delirium precautions: increase activity - DVT prophylaxis: encourage ambulation Complexity: Acute illness or injury posing a threat to life or body function (HIGH). Risk: Prescription drug/IVF/colloid was initiated, discontinued, adjusted; or reviewed with decision to maintain current orders (MOD). Advance Directive: Full Code Anticipated Discharge - Date - per primary (though patient states he wants to be discharged tomorrow) - Location - Home - Pending the following - per primary Total time spent (which include face to face and non face to face encounters) : 40 minutes Extended Emergency Contact Information Primary Emergency Contact: Mobile Relation: Spouse Rashad Gastelum DO Division of Hospital Medicine [place] Images from the original note were not included. ADDICTION MEDICINE PROGRESS NOTE Patient: Maria De Jesus Hogan Problem List: Principal Problem: Alcohol withdrawal syndrome with complication (HCC) Active Problems: Alcoholic peripheral neuropathy (HCC) Shingles (herpes zoster) polyneuropathy Cigarette smoker Severe alcohol use disorder (HCC) SUBJECTIVE Chief Complaint Patient presents with Rash On abdomen Back Pain Middle of back. No known injury. 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 Requesting detox Last 4 CIWA scores per RN assessments 4 - 6 - 8 - 4 Interim History Maria De Jesus Hogan is a 58-year-old man with a past medical history of alcohol abuse, alcohol withdrawal, arthritis, cerebral artery occlusion with cerebral infarction, cerebrovascular disease, GERD, HTN, insomnia that was admitted initially for detox from alcohol. Patient reports long history of alcohol use disorder and has been admitted to [facility] multiple times in the past for similar presentations. Patient also has a history of leaving [facility] prior to his detox being completed. Patient states that at his last admission in May 2024 for detox, he was supposed to go to a rehabilitation facility in [place] but his uncle was going to pay for, and that for an unknown reason his uncle chose not to pay for his rehabilitation, which prompted this most recent relapse. Patient reports consuming 6, 24 ounce beers with an average alcohol content of 5-6% alcohol. Patient reports this is an improvement from consuming beer that had a 10% alcohol content. IMS was consulted due to pain in his attributed to his current shingles infection, and was prescribed opioids for pain control. Patient was told that due to his current opioids that he is not a candidate for the Vivitrol injection at this time. During encounter today, patient was observed sitting comfortably in a chair, was dressed appropriately in hospital attire and appeared in no apparent distress. Patient was cooperative and answers all questions appropriately. Patient reports adequate sleep last night and no alterations in his appetite. Patient denies nausea/vomiting or diarrhea/constipation. Patient reports persistent pain, however states that his current oxycodone medication has been adequately controlling his pain. Patient is denying SI/HI or AVH. Patient reports that his withdrawal symptoms are adequately controlled, and is requesting a discharge tomorrow 08/06/2024. Patient has observed mild bilateral hand tremors, but reports that they are not causing him any discomfort or issues with use of his hands. Patient is denying any side effects of his medications at this time. Review of Systems Review of Systems Constitutional: Negative for chills, decreased appetite, diaphoresis and fever. HENT: Negative for congestion and sore throat. Eyes: Negative for blurred vision and double vision. Cardiovascular: Negative for chest pain, palpitations and syncope. Respiratory: Negative for cough and shortness of breath. Skin: Positive for rash. Negative for itching. Gastrointestinal: Positive for abdominal pain. Negative for constipation, diarrhea, jaundice, nausea and vomiting. Genitourinary: Negative for frequency. Neurological: Positive for tremors. Negative for dizziness, headaches, light-headedness, seizures and weakness. Psychiatric/Behavioral: Negative for depression, hallucinations and suicidal ideas. The patient is not nervous/anxious. OBJECTIVE Vitals Vitals: 08/04/24 1722 08/04/24 2239 08/05/24 0550 08/05/24 0551 BP: 116/87 158/87 (!) 156/110 (!) 170/104 BP Location: Right arm Left arm Patient Position: Sitting Lying Pulse: 109 117 95 96 Resp: 20 17 18 Temp: 36.5 C (97.7 F) 36.6 C (97.8 F) 36.2 C (97.2 F) TempSrc: Temporal Temporal Temporal SpO2: 92% 96% 96% Weight: Height: Physical Exam Constitutional: Appearance: He is obese. He is not ill-appearing or diaphoretic. HENT: Head: Normocephalic. Nose: Nose normal. Mouth/Throat: Mouth: Mucous membranes are moist. Pharynx: Oropharynx is clear. Eyes: Extraocular Movements: Right eye: No nystagmus. Left eye: No nystagmus. Cardiovascular: Rate and Rhythm: Normal rate and regular rhythm. Pulses: Normal pulses. Heart sounds: No murmur heard. No friction rub. No gallop. Pulmonary: Effort: Pulmonary effort is normal. No respiratory distress. Breath sounds: Wheezing present. Comments: End-expiratory wheezes heard in all lung conroy. Abdominal: General: There is no distension. Palpations: Abdomen is soft. Tenderness: There is no abdominal tenderness. There is no guarding. Musculoskeletal: Right lower leg: No edema. Left lower leg: No edema. Skin: General: Skin is warm and dry. Findings: Rash present. Rash is vesicular. Neurological: General: No focal deficit present. Mental Status: He is alert and oriented to person, place, and time. Cranial Nerves: Cranial nerves 2-12 are intact. Motor: Tremor present. No seizure activity. Comments: Minimal tongue fasciculations observed, mild bilateral hand tremors observed. Peripheral neuropathy reported per patient. Medications Home Meds Current Outpatient Medications Medication Instructions albuterol 108 (90 Base) MCG/ACT inhaler 2 puffs, Inhalation, Every 6 hours PRN calcipotriene (Dovonex) 0.005 % cream Topical, 2 times daily clobetasol (Temovate) 0.05 % cream Topical, 2 times daily folic acid (FOLVITE) 1 mg, Oral, Daily gabapentin (NEURONTIN) 600 mg, Oral, 3 times daily melatonin 5 mg, Oral, Nightly Multiple Vitamins tablet 1 tablet, Oral, Daily naltrexone (DEPADE) 50 mg, Oral, Daily nicotine polacrilex (NICOTINE MINI) 4 mg, Mouth/Throat, Every 2 hour PRN pantoprazole (PROTONIX) 40 mg, Oral, Daily thiamine ((VITAMIN B-1)) 100 mg, Daily Thiamine Mononitrate (VITAMIN B1) 100 mg, Oral, Daily Vivitrol 380 mg, IntraMUSCular, Every 28 days Scheduled Inpatient Meds acyclovir, 800 mg, Oral, 5x daily baclofen, 10 mg, Oral, TID diazePAM, 10 mg, Oral, q6h folic acid, 1 mg, Oral, Daily gabapentin, 800 mg, Oral, TID Lidocaine, 1 patch, TransDERmal, Daily pantoprazole, 40 mg, Oral, Daily thiamine, 100 mg, Oral, Daily PRN Inpatient Meds PRN medications: albuterol, aluminum & magnesium hydroxide-simethicone, cloNIDine, diazePAM, dicyclomine, hydrOXYzine pamoate, ibuprofen, naloxone, nicotine polacrilex, ondansetron ODT OR ondansetron, oxyCODONE, traZODone Continuous Inpatient Infusions Recent Imaging ECG 12 lead Result Date: 08/04/2024 Sinus rhythm Probable anterior infarct, age indeterminate Electronically Signed On 08-04-2024 02:23:55 EDT by Anaya Wallace Labs CBC: Recent Labs 08/03/24 1738 WBC 5.0 HGB 17.1 PLT 137* MCV 95.8 RDW 13.2 BMP: Recent Labs 08/03/24 1738 NA 136 K 4.2 CL 98 CO2 26 BUN 5* CREATININE 0.64* CALCIUM 8.4 Liver Profile: Recent Labs 08/03/24 1738 AST 42* ALT 32 BILITOT 0.3 ALKPHOS 103 PROT 7.4 Glucose: Recent Labs 08/03/24 1738 GLUCOSE 113* Lactic Acid: No lab exists for component: LACTA Cardiac Injury Profile: No results for input(s): CKTOTAL, CKMB, TROPONINI in the last 72 hours. Last 24 Hours: No results found for this or any previous visit (from the past 24 hours). ASSESSMENT & PLAN Alcohol use disorder Counseled patient on biopsychosocial consequences of substance use. Encouraged professional chemical dependency treatment. Encouraged 12 step meeting attendance. Follow up plan for addiction management discussed with patient: Patient is requesting discharge by tomorrow. CDT level is still pending. Alcohol withdrawal Last use of alcohol was on 08/03/24. Valium taper to manage alcohol withdrawal symptoms. Will decrease Valium 5 mg to q 6 hours for today. CIWA scores per unit protocol. PRN medications for withdrawal symptom management added. Encouraged to participate in all unit activities. Alcoholic peripheral neuropathy Will continue home Gabapentin 800 mg TID Elevated transaminase Hx of fatty liver Continue daily CMP Acute shingles - Herpes zoster reactivation Will continue to follow recommendations from IMS Continue acyclovir 800 mg 5 times daily Continue oxycodone 5 mg for pain control Disposition: Discharge anticipated in 1-2 days. This is pending: Resolution of withdrawal symptoms. Medical stabilization. Labs/tests/tasks to review: Daily CMP, daily vitals, CDT. Tray Setter to coordinate care with: [facility]. Will follow. Associated attestation - Jonatan Mckeon MD - 08/05/2024 5:11 PM EDT I saw and evaluated the patient, participating in the laboy portions of the service. We reviewed the patient's medical record and test results. I personally spent a total 35 minutes in counseling and discussion with the patient and coordination of care. This included a face to face evaluation and physical examination, and documenting clinical information on the day of visit. I have reviewed the resident's note. I agree with the resident s findings and plan, with any additions or corrections listed below. Nutrition rescreen completed. Patient assigned a level 1. Patient sleeping comfortably, will attempt smoking cessation counseling at a later date. documented in this encounter [facility] 08-06-2024 Nurse Note 2 attempts done for blood draw. Unable to retrieve blood. 2nd nurse to attempt. [facility] 08-06-2024 Nurse Note Patient is up and steady, seen in group room. Pt is cooperative and med compliant. Pt denies SI/HI/AVH. Pt encouraged to notify staff for any questions and concerns. [facility] 08-05-2024 Nurse Note One episode of emesis noted shortly after administration of PRN oxycodone. Patient reports this is a normal occurrence for him-instructed to alert staff of any further potential episodes of emesis. PRN Zofran given at 1735-per patient, medication was effective. No further needs or concerns voiced. Safety maintained. [facility] 08-05-2024 Nurse Note PRN ibuprofen given at 1341 as a first line defense for c/o 8/10 pain in R rib/back-patient reports pain is associated with his recent shingles Dx. Per patient, first line defense was ineffective-second line PRN oxycodone administered at 1609. Patient instructed to alert staff if medication is ineffective-will continually monitor for effective pain management. No further needs or concerns voiced. Safety maintained. [facility] 08-05-2024 Group counseling note Department: [facility] THER[facility] Group Topic: Recreation Therapy Group Date: 08/05/2024 Start Time: 1034 End Time: 1135 Facilitators: Aurora Camarena Number of Participants: 6 Group Name: Recreation Therapy Treatment Modality: Recreation Therapy Purpose: enhance coping skills and build self awareness, reconnect to leisure, support socialization Summary: Table Topics - To allow Patients the opportunity to explore self awareness and socialization through leisure engagement. Discussion to focus on their experience of participation, as well as, the process of reconnection to leisure interests. Name: Maria De Jesus Hogan Date of : 1965 MR: [id number] Appearance: Good eye contact Affect: Appropriate Behavior: Pleasant Alertness: Alert Speech: Appropriate Level/Quality of Participation: engaged Interactions with others: supportive Interventions utilized were Building rapport and engagement Patient's Response to Intervention: Patient came in toward the end of group and engaged in remaining portion of intervention. Patient was observed being interactive with peers and laughing during the group at times. Encouragement offered in utilizing healthy leisure pursuits to support coping and recovery. Continue to encourage patient participation in groups. 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 Mood is euthymic/bright. Patient up @patricio-gait is steady. Alert and oriented x4. Patient reports good appetite and sleep. Encouragement with ADLs provided. Social/pleasant/friendly with staff and peers-seen in attendance at group therapy. Cooperative with nursing care and assessment. Medication compliant. CIWA monitored per unit policy. Continues to endorse R rib/back pain-acute in nature-patient reports pain is due to shingles Dx-Lidocaine patch applied to area-per orders, PRN ibuprofen used as first line defense-PRN oxycodone given if ibuprofen is ineffective. Standard precautions continued. Denies all s/s of withdraw. Denies thoughts of harm to self or others. No delusions voiced/noted. No A/V/T hallucinations voiced/noted. Patient able to make needs known, and encouraged to do so. Education on appropriate call light usage reinforced. No s/s of physical concerns. Plan of care ongoing. Safety maintained. [facility] 08-05-2024 Plan of care note Problem: Drug Abuse/Detox Goal: Will have no detox symptoms and will verbalize plan for changing drug-related behavior Outcome: Progressing Problem: Potential for Substance Withdrawal Goal: Verbalizes signs/symptoms of withdrawal Outcome: Progressing Goal: Reports signs/symptoms of withdrawal Outcome: Progressing Goal: Free of withdrawal symptoms Outcome: Progressing [facility] 08-04-2024 Nurse Note Patient is up and steady, seen in group room socializing. Pt is cooperative and med compliant. Pt has shingles on right flank and back. Pt denies SI/HI/AVH. Pt encouraged to notify staff for any questions and concerns. [facility] 08-04-2024 Nurse Note Administered PRN Oxycodone for shingles pain. Will monitor effectiveness. [facility] 08-04-2024 Note Patient sleeping com fortably, will attempt smoking cessation counseling at a later date. [facility] 08-04-2024 Note Formatting of this n ote might be different from the original. Patient scheduled for [place] [facility] intake assessment on 08/13/2024 at 1:30 PM. All information included in patient's discharge paperwork. [facility] 08-04-2024 Note Formatting of this n ote might be different from the original. Patient scheduled for [place] [facility] intake assessment on 08/13/2024 at 1:30 PM. All information included in patient's discharge paperwork. [facility] 08-04-2024 Nurse Note Patient withdrawn to room thus far. Independent with ADLs and ambulation, A&Ox4. Denies SI/HI/AVH thus far. Patient compliant with medications and treatment offered. Currently has shingles, on acyclovir and increased gabapentin. Shingles are scabbed to wrap from the right abdomen/flank around his back. Appetite, sleep poor, hygiene adequate. Encouraged to let staff know of any changes or concerns. Will monitor for safety this shift. [facility] 08-04-2024 History and physical note Images from the original note were not included. ADDICTION MEDICINE 4E DETOX UNIT H&P Patient: Maria De Jesus Hogan Admit Date: 08/03/2024 Primary Care Physician: Lynda Rasheed MD HISTORY OF PRESENT ILLNESS Chief Complaint Patient presents with Rash On abdomen Back Pain Middle of back. No known injury. 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 year old male with a PMH of alcohol abuse, alcohol withdrawal, arthritis, cerebral artery occlusion with cerebral infarction, cerebrovascular disease, GERD, HTN, insomnia that was admitted for detox from alcohol. Patient has a long history of alcohol use disorder and has been admitted to the [facility] multiple times in the past for similar presentation, with last known admission to the detox unit on 06/02/2024 the patient left AMA on 06/04/2024. Maria De Jesus Hogan states that prior to presentation, he last admitted to [facility] in May of 2024. At the time of that admission, patient was looking to go to a rehab facility in [place] and that his uncle was supposed to be paying for it. Patient reports that for some reason, his uncle chose not to pay for his rehab and that he felt screwed over for the change in plan. After patient's uncle chose not to pay for the rehab, patient states that he decided to start drinking alcohol again. He states that he drinks approximately 6, 24 oz tall boys a day at 5-6% alcohol. Patient believes that he has made significant progress with his drinking, as he states that he stopped drinking 6, 24 oz tall boys of 10% alcohol content and transitioned to a lower alcohol content beer with the same number of beers consumed daily. Discussion was had with the patient regarding if he states he has has troubles with alcohol, patient states that while he knows that he consumes too much alcohol he believes that he has made significant improvements in how much alcohol he consumes over the course of the day despite consuming the same number of beers per day. Discussion was had with the patient regarding aftercare, patient states that he wants to go to [facility] on discharge, as he felt that it was helpful to him in the past. The topic of Vivitrol was also discussed with the patient, patient was told that due to being prescribed opioids for his current shingles infection that he was not a candidate for the Vivitrol injection at this time, patient expressed understanding. Patient was denying any further complaints at this time. On admission, a urine drug screen was negative, and a serum alcohol level was positive for alcohol with serum ethanol of 0.375 . SUBSTANCE USE HISTORY Brief Substance Use Narrative - Copied from ELDER COUNSELOR note from 08/04/24. Patient reports that he is currently drinking upwards of 9, 24 ounce Natty Daddy beers daily. Patient reports his last drink was 08/03/2024.. Patient labs are positive for alcohol (0.175). Patient first drank alcohol when he was [age] years old. Patient reports that his use was regular in his 20s, and problematic 12 years ago. He cannot identify a trigger to his problematic use, other than, I like beer . He drinks the point of intoxication, blackouts, and vomiting. He denies history of withdrawal seizure, alcohol overdoses, or DTs. Patient does have extensive history of falls while intoxicated. Patient denies any history of MAT engagement. Patient reports his longest period of sobriety was 6 months. Patient most recently only being able to maintain sobriety for 2 weeks. Patient has previous history of detox occurring on 06/02/2024 (AMA), 05/07/2024, 01/23/2024, 07/27/2023, 07/08/2023, 02/08/2023, 05/20/2023 (medical), 10/25/2021, 02/15/2021 (left AMA), 06/09/20, 10/01/19, 08/31/19 (left AMA), 2016 (left AMA), and 2014 (left AMA). He denies history of residential treatment Patient reports previous history of engagement with AA as well as IOP. Patient most recently was assessed for IOP but did not complete any programming and was dismissed. . Current Substance Use Alcohol: 6, 24 oz beers daily, with alcohol content of 5.5-6%. Amphetamines: Denies. Benzos: Denies. Cocaine: Denies. Hallucinogens: Denies. Marijuana: Denies. Nicotine: Reports smoking 1-1.5 PPD. Opioids: Denies. Treatment History - Copied from H&P note from 06/02/24. Inpatient Rehab: Denies. Chem Dep IOP: Previously attended. Detoxifications: Has been on the detox unit and admitted medically for detox multiple times. 12 Step Meetings: Previous history of engagement. Medication Assisted Treatment: Has responded positively to naltrexone and possibly Vivitrol in the past. Consequences [] IVDA. [x] Blackouts related to substance use. [] History of withdrawal seizures. [] History of delirium tremens. [x] History of overdoses. [x] Legal consequences of substance use. Substance Use Disorder Criteria 2-3 = mild; 4-5 = moderate; 6 or >6 = severe substance use disorder [x] Taking substance in larger amounts and/or for longer than intended. [x] Wanting to cut down or quit but not being able to. [x] Spending a lot of time obtaining the substance. [x] Craving or a strong desire to use substance. [x] Repeatedly doesn't carry out major obligations due to substance use. [x] Using despite recurring social or interpersonal problems. [x] Reducing social, occupational, or recreational activities. [x] Recurrent use in physically hazardous situations. [x] Consistent use despite recurrent physical or psychological difficulties. [x] Tolerance (increased amounts to achieve intoxication or diminished effect). [x] Withdrawal syndrome or the substance is used to avoid withdrawal. REMAINING HISTORY Psychiatric History - Copied from H&P note from 06/02/24. Current Psychiatrist: Denies Current Medications: Denies Diagnoses: Denies; per chart, anxiety and depression Previous Medication Trials: Denies Psychiatric Hospitalizations: Denies Previous Suicide Attempts: Denies Adverse Childhood Events: Denies Trauma History: Denies History of Head Injuries: Denies Past Medical History Past Medical History: Diagnosis Date Alcohol abuse Alcohol dependence with withdrawal (HCC) 08/31/2019 Alcohol intoxication without use disorder, uncomplicated (HCC) 10/01/2019 Alcohol use disorder 09/10/2022 Alcohol withdrawal syndrome with complication (HCC) 09/27/2021 Alcohol withdrawal syndrome with complication, with unspecified complication (HCC) 05/07/2024 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) 11/28/2023 Alcohol withdrawal syndrome without complication (HCC) Alcohol withdrawal with inpatient treatment without complication (HCC) 01/20/2024 Alcohol withdrawal with inpatient treatment, uncomplicated (HCC) 06/02/2024 Alcohol withdrawal, uncomplicated (HCC) 08/31/2019 Alcohol withdrawal, with unspecified complication (HCC) 10/02/2019 Alcohol withdrawal, with unspecified complication (HCC) 10/02/2019 Alcoholic intoxication without complication (CMS/HCC) (HCC) 04/10/2024 Alcoholism (CMS/HCC) (HCC) Anxiety Apical lung nodule Arthritis Maria De Jesus Cerebral artery occlusion with cerebral infarction (HCC) Cerebrovascular disease Depression GERD (gastroesophageal reflux disease) Maria De Jesus Hypertension Insomnia Lung nodule Past Surgical History Past Surgical History: Procedure Laterality Date COLONOSCOPY 06/10/2020 EGD/Dr Madison/Janis CYST REMOVAL face EGD (HISTORICAL) 07/23/2022 Dr. Estrella[facility] SMALL INTESTINE SURGERY UPPER GASTROINTESTINAL ENDOSCOPY 09/27/2021 normal WISDOM TOOTH EXTRACTION Family History Family History Problem Relation Name Age of Onset Depression Sister Maria De Jesus Hogan Other ([id number]) Sister Maria De Jesus Hogan agoraphobia Arthritis Sister Maria De Jesus Hogan Cancer Mother Maria De Jesus Hogan colon rectal cancer; dx after age 50 Other ([id number]) Mother Maria De Jesus Hogan alcoholism Alcohol abuse Mother Maria De Jesus Hogan Stroke Mother Maria De Jesus Hogan Other ([id number]) Father Maria De Jesus Hogan h/o rheumatic fever, cardiac arrest due to bee sting Hypertension Father Maria De Jesus Hogan Social Drivers of Health Tobacco Use: High Risk (08/03/2024) Patient History Smoking Tobacco Use: Every Day Smokeless Tobacco Use: Never Passive Exposure: Past Alcohol Use: Alcohol Misuse (08/04/2024) AUDIT-C Frequency of Alcohol Consumption: 4 or more times a week Average Number of Drinks: 10 or more Frequency of Binge Drinking: Daily or almost daily Financial Resource Strain: Low Risk (08/04/2024) Overall Financial Resource Strain (CARDIA) Difficulty of Paying Living Expenses: Not hard at all Food Insecurity: No Food Insecurity (08/04/2024) Hunger Vital Sign Worried About Running Out of Food in the Last Year: Never true Ran Out of Food in the Last Year: Never true Transportation Needs: No Transportation Needs (08/04/2024) PRAPARE - Transportation Lack of Transportation (Medical): No Lack of Transportation (Non-Medical): No Physical Activity: Inactive (08/04/2024) Exercise Vital Sign Days of Exercise per Week: 0 days Minutes of Exercise per Session: 0 min Stress: Stress Concern Present (08/04/2024) [place] [employer] - Occupational Stress Questionnaire Feeling of Stress : To some extent Social Connections: Moderately Isolated (08/04/2024) Social Connection and Isolation Panel [NHANES] Frequency of Communication with Friends and Family: Twice a week Frequency of Social Gatherings with Friends and Family: Twice a week Attends Synagogue Services: Never Active Member of Clubs or Organizations: No Attends Club or Organization Meetings: Never Marital Status: Intimate Partner Violence: Not At Risk (08/04/2024) Humiliation, Afraid, Rape, and Kick questionnaire Fear of Current or Ex-Partner: No Emotionally Abused: No Physically Abused: No Sexually Abused: No Depression: None or minimal depression (08/04/2024) PHQ-9 PHQ-9 Score: 1 Housing Stability: Low Risk (08/04/2024) Housing Stability Vital Sign Unable to Pay for Housing in the Last Year: No Number of Times Moved in the Last Year: 0 Homeless in the Last Year: No Utilities: Not At Risk (08/04/2024) [facility] Utilities Threatened with loss of utilities: No Recent Concern: Utilities - At Risk (05/08/2024) [facility] Utilities Threatened with loss of utilities: Yes Health Literacy: Not on file REVIEW OF SYSTEMS Review of Systems Constitutional: Negative for decreased appetite, diaphoresis and fever. HENT: Negative for sore throat. Eyes: Negative for blurred vision and double vision. Cardiovascular: Negative for chest pain, leg swelling and palpitations. Respiratory: Negative for cough and shortness of breath. Skin: Positive for rash. Negative for flushing and itching. Gastrointestinal: Positive for abdominal pain. Negative for jaundice, nausea and vomiting. Neurological: Positive for numbness, paresthesias and tremors. Negative for dizziness, headaches and light-headedness. Psychiatric/Behavioral: Negative for depression, hallucinations, suicidal ideas and thoughts of violence. The patient is not nervous/anxious. EXAM Vitals Vitals: 08/04/24 0056 08/04/24 0210 05/09/23 [id number] BP: 120/85 130/89 BP Location: Patient Position: Pulse: (!) 129 94 107 104 Resp: 18 16 Temp: 36.5 C (97.7 F) 36.2 C (97.2 F) TempSrc: Temporal Temporal SpO2: 92% (!) 87% 92% Physical Exam Constitutional: General: He is not in acute distress. Appearance: He is obese. He is ill-appearing. He is not diaphoretic. HENT: Head: Normocephalic. Nose: Nose normal. Mouth/Throat: Mouth: Mucous membranes are moist. Pharynx: Oropharynx is clear. Eyes: Extraocular Movements: Right eye: Nystagmus present. Left eye: Nystagmus present. Comments: Bilateral horizontal nystagmus observed. Cardiovascular: Rate and Rhythm: Regular rhythm. Tachycardia present. Heart sounds: No murmur heard. No friction rub. No gallop. Pulmonary: Effort: No respiratory distress. Breath sounds: No wheezing. Abdominal: Palpations: Abdomen is soft. Tenderness: There is no abdominal tenderness. There is no guarding. Musculoskeletal: Right lower leg: No edema. Left lower leg: No edema. Skin: General: Skin is warm and dry. Findings: Lesion and rash present. Rash is vesicular. Comments: Right-sided abdominal vesicular rash in a multiple dermatomal pattern. Neurological: General: No focal deficit present. Mental Status: He is alert and oriented to person, place, and time. Cranial Nerves: No cranial nerve deficit. Sensory: Sensory deficit present. Motor: Tremor present. Comments: Tongue fasciculations present, bilateral hand tremors observed. Patient reports peripheral neuropathy. IMAGING ECG 12 lead Result Date: 08/04/2024 Sinus rhythm Probable anterior infarct, age indeterminate Electronically Signed On 08-04-2024 02:23:55 EDT by [employer] Recent Results (from the past 48 hours) SARS-CoV-2 Antigen Collection Time: 08/03/24 5:34 PM Specimen: Nasal; Swab Result Value Ref Range SARS-CoV-2 Antigen Negative Negative CBC auto differential Collection Time: 08/03/24 5:38 PM Result Value Ref Range Auto WBC 5.0 3.6 - 10.7 10*3/uL RBC 5.05 4.40 - 5.90 10*6/uL Hemoglobin 17.1 13.0 - 18.0 g/dL Hematocrit 48.4 40.0 - 52.0 % MCV 95.8 77.0 - 99.0 fL MCH 33.9 26.0 - 34.0 pg MCHC 35.3 30.5 - 36.0 % RDW 13.2 11.5 - 15.0 % Platelets 137 (L) 140 - 440 10*3/uL MPV 8.8 (L) 9.0 - 12.7 fL nRBC 0.0 0.0 - 2.0 /100 WBCs Neutrophils Relative 51.7 38.0 - 82.0 % Lymphocytes Relative 33.3 15.0 - 45.0 % Monocytes Relative 12.8 5.0 - 13.0 % Eosinophils Relative 1.2 0.0 - 6.0 % Basophils Relative 0.6 0.0 - 2.0 % Immature Grans % 0.4 0.0 - 2.0 % Neutrophils Absolute 2.6 1.8 - 7.5 10*3/uL Lymphocytes Absolute 1.7 1.0 - 4.3 10*3/uL Monocytes Absolute 0.6 0.0 - 0.9 10*3/uL Eosinophils Absolute 0.1 0.0 - 0.5 10*3/uL Basophils Absolute 0.0 0.0 - 0.2 10*3/uL Immature Grans Absolute 0.0 <0.1 10*3/uL Comprehensive metabolic panel Collection Time: 08/03/24 5:38 PM Result Value Ref Range SODIUM 136 136 - 145 mmol/L POTASSIUM 4.2 3.5 - 5.1 mmol/L CHLORIDE 98 98 - 107 mmol/L CARBON DIOXIDE 26 22 - 29 mmol/L ANION GAP 12 3 - 13 mmol/L UREA NITROGEN 5 (L) 9 - 23 mg/dL CREATININE 0.64 (L) 0.72 - 1.25 mg/dL GLUCOSE 113 (H) 74 - 100 mg/dL CALCIUM 8.4 8.4 - 10.2 mg/dL AST (SGOT) 42 (H) <34 U/L ALT 32 <40 U/L ALKALINE PHOSPHATASE 103 40 - 150 U/L ALBUMIN 3.6 3.5 - 5.0 g/dL BILIRUBIN, TOTAL 0.3 <1.2 mg/dL TOTAL PROTEIN 7.4 6.4 - 8.3 g/dL eGFR >90.0 >60.0 mL/min/1.73m*2 Ethanol Collection Time: 08/03/24 5:38 PM Result Value Ref Range ETHANOL IN SER/PLAS 375 (HH) <10 mg/dL ECG 12 lead Collection Time: 08/03/24 5:54 PM Result Value Ref Range Heart Rate 96 bpm QRSD Interval 86 ms QT Interval 364 ms QTC Interval 461 ms P [place] 35 degrees QRS [place] 80 degrees T Wave [place] 47 degrees VA Interval 154 ms Drug screen panel, emergency Collection Time: 08/03/24 6:08 PM Result Value Ref Range AMPHETAMINE SCREEN Negative BARBITURATES SCREEN Negative BENZODIAZEPINE SCREEN Negative COCAINE METAB. SCREEN Negative METHADONE SCREEN Negative OPIATES SCREEN Negative OXYCODONE SCREEN Negative PHENCYCLIDINE SCREEN Negative FENTANYL SCREEN, UR QUAL Negative MEDICATIONS Home Meds Current Outpatient Medications Medication Instructions albuterol 108 (90 Base) MCG/ACT inhaler 2 puffs, Inhalation, Every 6 hours PRN calcipotriene (Dovonex) 0.005 % cream Topical, 2 times daily clobetasol (Temovate) 0.05 % cream Topical, 2 times daily folic acid (FOLVITE) 1 mg, Oral, Daily gabapentin (NEURONTIN) 600 mg, Oral, 3 times daily melatonin 5 mg, Oral, Nightly Multiple Vitamins tablet 1 tablet, Oral, Daily naltrexone (DEPADE) 50 mg, Oral, Daily nicotine polacrilex (NICOTINE MINI) 4 mg, Mouth/Throat, Every 2 hour PRN pantoprazole (PROTONIX) 40 mg, Oral, Daily thiamine ((VITAMIN B-1)) 100 mg, Daily Thiamine Mononitrate (VITAMIN B1) 100 mg, Oral, Daily Vivitrol 380 mg, IntraMUSCular, Every 28 days Scheduled Inpatient Meds acyclovir, 800 mg, Oral, 5x daily diazePAM, 10 mg, Oral, q6h folic acid, 1 mg, Oral, Daily gabapentin, 800 mg, Oral, TID Lidocaine, 1 patch, TransDERmal, Daily pantoprazole, 40 mg, Oral, Daily thiamine, 100 mg, Oral, Daily PRN Inpatient Meds PRN medications: albuterol, aluminum & magnesium hydroxide-simethicone, cloNIDine, diazePAM, dicyclomine, hydrOXYzine pamoate, ibuprofen, naloxone, nicotine polacrilex, ondansetron ODT OR ondansetron, oxyCODONE, traZODone Continuous Inpatient Infusions ASSESSMENT & PLAN Alcohol use disorder Counseled patient on biopsychosocial consequences of substance use. Encouraged professional chemical dependency treatment. Encouraged 12 step meeting attendance. Follow up plans for addiction management discussed with patient: Will start baclofen 10 mg TID as adjunctive craving control,. Alcohol withdrawal Last use of alcohol was on 08/03/24. Valium taper to manage alcohol withdrawal symptoms. Valium 10 mg q 6 hours for today. Continue thiamine 100 mg and folic acid 1 mg. CIWA scores per unit protocol. PRN medications for withdrawal symptom management added. Encouraged to participate in all unit activities. Alcoholic peripheral neuropathy Continue home Gabapentin 800 mg TID. Elevated transaminase Hx of fatty liver AST 42 on admission Will add daily CMP to check liver function. Acute shingles - Herpes zoster reactivation Consult IMS for evaluation and management IMS started patient on acyclovir 800 mg 5 times daily. Disposition: Discharge anticipated in 3-5 days. This is pending: Resolution of withdrawal symptoms. Medical stabilization. Labs/tests/tasks to review: Daily vitals, LFT's. Consultants to coordinate care with: IMS. Associated attestation - Jonatan Mckeon MD - 08/04/2024 1:32 PM EDT I saw and evaluated the patient, participating in the lbaoy portions of the service. We reviewed the patient's medical record and test results. I personally spent a total 55 minutes in counseling and discussion with the patient and coordination of care. This included a face to face evaluation and physical examination, and documenting clinical information on the day of visit. I have reviewed the resident's note. I agree with the resident s findings and plan, with any additions or corrections listed below. Greatly appreciate IM consult for shingles management - ok to use opioids for pain for now. Also has lidocaine patch ordered. CDT 05/08/24: 6.8% CDT 08/04/24: pending Ordered given recidivistic behavior [facility] 08-04-2024 Note [facility] 08-04-2024 History and physical note Images from the original note were not included. ADDICTION MEDICINE DETOX UNIT H&P Patient: Maria De Jesus Hogan Admit Date: 08/03/2024 Primary Care Physician: Lynda Rasheed MD HISTORY OF PRESENT ILLNESS Chief Complaint Patient presents with Rash On abdomen Back Pain Middle of back. No known injury. 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 year old male with a PMH of alcohol abuse, alcohol withdrawal, arthritis, cerebral artery occlusion with cerebral infarction, cerebrovascular disease, GERD, HTN, insomnia that was admitted for detox from alcohol. Patient has a long history of alcohol use disorder and has been admitted to the [facility] multiple times in the past for similar presentation, with last known admission to the detox unit on 06/02/2024 the patient left A on 06/04/2024. Maria De Jesus Hogan states that prior to presentation, he last admitted to [facility] in May of 2024. At the time of that admission, patient was looking to go to a rehab facility in [place] and that his uncle was supposed to be paying for it. Patient reports that for some reason, his uncle chose not to pay for his rehab and that he felt screwed over for the change in plan. After patient's uncle chose not to pay for the rehab, patient states that he decided to start drinking alcohol again. He states that he drinks approximately 6, 24 oz tall boys a day at 5-6% alcohol. Patient believes that he has made significant progress with his drinking, as he states that he stopped drinking 6, 24 oz tall boys of 10% alcohol content and transitioned to a lower alcohol content beer with the same number of beers consumed daily. Discussion was had with the patient regarding if he states he has has troubles with alcohol, patient states that while he knows that he consumes too much alcohol he believes that he has made significant improvements in how much alcohol he consumes over the course of the day despite consuming the same number of beers per day. Discussion was had with the patient regarding aftercare, patient states that he wants to go to [facility] on discharge, as he felt that it was helpful to him in the past. The topic of Vivitrol was also discussed with the patient, patient was told that due to being prescribed opioids for his current shingles infection that he was not a candidate for the Vivitrol injection at this time, patient expressed understanding. Patient was denying any further complaints at this time. On admission, a urine drug screen was negative, and a serum alcohol level was positive for alcohol with serum ethanol of 0.375 . SUBSTANCE USE HISTORY Brief Substance Use Narrative - Copied from JEREMY note from 08/04/24. Patient reports that he is currently drinking upwards of 9, 24 ounce Natty Daddy beers daily. Patient reports his last drink was 08/03/2024.. Patient labs are positive for alcohol (0.175). Patient first drank alcohol when he was [age] years old. Patient reports that his use was regular in his 20s, and problematic 12 years ago. He cannot identify a trigger to his problematic use, other than, I like beer . He drinks the point of intoxication, blackouts, and vomiting. He denies history of withdrawal seizure, alcohol overdoses, or DTs. Patient does have extensive history of falls while intoxicated. Patient denies any history of MAT engagement. Patient reports his longest period of sobriety was 6 months. Patient most recently only being able to maintain sobriety for 2 weeks. Patient has previous history of detox occurring on 06/02/2024 (AMA), 05/07/2024, 01/23/2024, 07/27/2023, 07/08/2023, 02/08/2023, 05/20/2023 (medical), 10/25/2021, 02/15/2021 (left AMA), 06/09/20, 10/01/19, 08/31/19 (left AMA), 2017 (left AMA), and 2014 (left AMA). He denies history of residential treatment Patient reports previous history of engagement with AA as well as IOP. Patient most recently was assessed for IOP but did not complete any programming and was dismissed. . Current Substance Use Alcohol: 6, 24 oz beers daily, with alcohol content of 5.5-6%. Amphetamines: Denies. Benzos: Denies. Cocaine: Denies. Hallucinogens: Denies. Marijuana: Denies. Nicotine: Reports smoking 1-1.5 PPD. Opioids: Denies. Treatment History - Copied from H&P note from 06/02/24. Inpatient Rehab: Denies. Chem Dep IOP: Previously attended. Detoxifications: Has been on the detox unit and admitted medically for detox multiple times. 12 Step Meetings: Previous history of engagement. Medication Assisted Treatment: Has responded positively to naltrexone and possibly Vivitrol in the past. Consequences [] IVDA. [x] Blackouts related to substance use. [] History of withdrawal seizures. [] History of delirium tremens. [x] History of overdoses. [x] Legal consequences of substance use. Substance Use Disorder Criteria 2-3 = mild; 4-5 = moderate; 6 or >6 = severe substance use disorder [x] Taking substance in larger amounts and/or for longer than intended. [x] Wanting to cut down or quit but not being able to. [x] Spending a lot of time obtaining the substance. [x] Craving or a strong desire to use substance. [x] Repeatedly doesn't carry out major obligations due to substance use. [x] Using despite recurring social or interpersonal problems. [x] Reducing social, occupational, or recreational activities. [x] Recurrent use in physically hazardous situations. [x] Consistent use despite recurrent physical or psychological difficulties. [x] Tolerance (increased amounts to achieve intoxication or diminished effect). [x] Withdrawal syndrome or the substance is used to avoid withdrawal. REMAINING HISTORY Psychiatric History - Copied from H&P note from 06/02/24. Current Psychiatrist: Denies Current Medications: Denies Diagnoses: Denies; per chart, anxiety and depression Previous Medication Trials: Denies Psychiatric Hospitalizations: Denies Previous Suicide Attempts: Denies Adverse Childhood Events: Denies Trauma History: Denies History of Head Injuries: Denies Past Medical History Past Medical History: Diagnosis Date Alcohol abuse Alcohol dependence with withdrawal (HCC) 08/31/2019 Alcohol intoxication without use disorder, uncomplicated (HCC) 10/01/2019 Alcohol use disorder 09/10/2022 Alcohol withdrawal syndrome with complication (HCC) 09/27/2021 Alcohol withdrawal syndrome with complication, with unspecified complication (HCC) 05/07/2024 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) 11/28/2023 Alcohol withdrawal syndrome without complication (HCC) Alcohol withdrawal with inpatient treatment without complication (HCC) 01/20/2024 Alcohol withdrawal with inpatient treatment, uncomplicated (HCC) 06/02/2024 Alcohol withdrawal, uncomplicated (HCC) 08/31/2019 Alcohol withdrawal, with unspecified complication (HCC) 10/02/2019 Alcohol withdrawal, with unspecified complication (HCC) 10/02/2019 Alcoholic intoxication without complication (CMS/HCC) (HCC) 04/10/2024 Alcoholism (CMS/HCC) (HCC) Anxiety Apical lung nodule Arthritis Maria De Jesus Cerebral artery occlusion with cerebral infarction (HCC) Cerebrovascular disease Depression GERD (gastroesophageal reflux disease) Maria De Jesus Hypertension Insomnia Lung nodule Past Surgical History Past Surgical History: Procedure Laterality Date COLONOSCOPY 06/10/2020 EGD/Dr Madison/[facility] CYST REMOVAL face EGD (HISTORICAL) 07/23/2022 Dr. Estrella-[facility] SMALL INTESTINE SURGERY UPPER GASTROINTESTINAL ENDOSCOPY 09/27/2021 normal WISDOM TOOTH EXTRACTION Family History Family History Problem Relation Name Age of Onset Depression Sister Maria De Jesus Hogan Other ([id number]) Sister Maria De Jesus Hogan agoraphobia Arthritis Sister Maria De Jesus Hogan Cancer Mother Maria De Jesus Hogan colon rectal cancer; dx after age 50 Other ([id number]) Mother Maria De Jesus Hogan alcoholism Alcohol abuse Mother Maria De Jesus Hogan Stroke Mother Maria De Jesus Hogan Other ([id number]) Father Maria De Jesus Hogan h/o rheumatic fever, cardiac arrest due to bee sting Hypertension Father Maria De Jesus Hogan Social Drivers of Health Tobacco Use: High Risk (08/03/2024) Patient History Smoking Tobacco Use: Every Day Smokeless Tobacco Use: Never Passive Exposure: Past Alcohol Use: Alcohol Misuse (08/04/2024) AUDIT-C Frequency of Alcohol Consumption: 4 or more times a week Average Number of Drinks: 10 or more Frequency of Binge Drinking: Daily or almost daily Financial Resource Strain: Low Risk (08/04/2024) Overall Financial Resource Strain (CARDIA) Difficulty of Paying Living Expenses: Not hard at all Food Insecurity: No Food Insecurity (08/04/2024) Hunger Vital Sign Worried About Running Out of Food in the Last Year: Never true Ran Out of Food in the Last Year: Never true Transportation Needs: No Transportation Needs (08/04/2024) PRAPARE - Transportation Lack of Transportation (Medical): No Lack of Transportation (Non-Medical): No Physical Activity: Inactive (08/04/2024) Exercise Vital Sign Days of Exercise per Week: 0 days Minutes of Exercise per Session: 0 min Stress: Stress Concern Present (08/04/2024) [place] [employer] - Occupational Stress Questionnaire Feeling of Stress : To some extent Social Connections: Moderately Isolated (08/04/2024) Social Connection and Isolation Panel [NHANES] Frequency of Communication with Friends and Family: Twice a week Frequency of Social Gatherings with Friends and Family: Twice a week Attends Synagogue Services: Never Active Member of Clubs or Organizations: No Attends Club or Organization Meetings: Never Marital Status: Intimate Partner Violence: Not At Risk (08/04/2024) Humiliation, Afraid, Rape, and Kick questionnaire Fear of Current or Ex-Partner: No Emotionally Abused: No Physically Abused: No Sexually Abused: No Depression: None or minimal depression (08/04/2024) PHQ-9 PHQ-9 Score: 1 Housing Stability: Low Risk (08/04/2024) Housing Stability Vital Sign Unable to Pay for Housing in the Last Year: No Number of Times Moved in the Last Year: 0 Homeless in the Last Year: No Utilities: Not At Risk (08/04/2024) [facility] Utilities Threatened with loss of utilities: No Recent Concern: Utilities - At Risk (05/08/2024) [facility] Utilities Threatened with loss of utilities: Yes Health Literacy: Not on file REVIEW OF SYSTEMS Review of Systems Constitutional: Negative for decreased appetite, diaphoresis and fever. HENT: Negative for sore throat. Eyes: Negative for blurred vision and double vision. Cardiovascular: Negative for chest pain, leg swelling and palpitations. Respiratory: Negative for cough and shortness of breath. Skin: Positive for rash. Negative for flushing and itching. Gastrointestinal: Positive for abdominal pain. Negative for jaundice, nausea and vomiting. Neurological: Positive for numbness, paresthesias and tremors. Negative for dizziness, headaches and light-headedness. Psychiatric/Behavioral: Negative for depression, hallucinations, suicidal ideas and thoughts of violence. The patient is not nervous/anxious. EXAM Vitals Vitals: 08/04/24 0056 08/04/24 0210 08/04/24 0627 08/04/24 0628 BP: 120/85 130/89 BP Location: Patient Position: Pulse: (!) 129 94 107 104 Resp: 18 16 Temp: 36.5 C (97.7 F) 36.2 C (97.2 F) TempSrc: Temporal Temporal SpO2: 92% (!) 87% 92% Physical Exam Constitutional: General: He is not in acute distress. Appearance: He is obese. He is ill-appearing. He is not diaphoretic. HENT: Head: Normocephalic. Nose: Nose normal. Mouth/Throat: Mouth: Mucous membranes are moist. Pharynx: Oropharynx is clear. Eyes: Extraocular Movements: Right eye: Nystagmus present. Left eye: Nystagmus present. Comments: Bilateral horizontal nystagmus observed. Cardiovascular: Rate and Rhythm: Regular rhythm. Tachycardia present. Heart sounds: No murmur heard. No friction rub. No gallop. Pulmonary: Effort: No respiratory distress. Breath sounds: No wheezing. Abdominal: Palpations: Abdomen is soft. Tenderness: There is no abdominal tenderness. There is no guarding. Musculoskeletal: Right lower leg: No edema. Left lower leg: No edema. Skin: General: Skin is warm and dry. Findings: Lesion and rash present. Rash is vesicular. Comments: Right-sided abdominal vesicular rash in a multiple dermatomal pattern. Neurological: General: No focal deficit present. Mental Status: He is alert and oriented to person, place, and time. Cranial Nerves: No cranial nerve deficit. Sensory: Sensory deficit present. Motor: Tremor present. Comments: Tongue fasciculations present, bilateral hand tremors observed. Patient reports peripheral neuropathy. IMAGING ECG 12 lead Result Date: 08/04/2024 Sinus rhythm Probable anterior infarct, age indeterminate Electronically Signed On 08-04-2024 02:23:55 EDT by Anaya BRADSHAW Recent Results (from the past 48 hours) SARS-CoV-2 Antigen Collection Time: 08/03/24 5:34 PM Specimen: Nasal; Swab Result Value Ref Range SARS-CoV-2 Antigen Negative Negative CBC auto differential Collection Time: 08/03/24 5:38 PM Result Value Ref Range Auto WBC 5.0 3.6 - 10.7 10*3/uL RBC 5.05 4.40 - 5.90 10*6/uL Hemoglobin 17.1 13.0 - 18.0 g/dL Hematocrit 48.4 40.0 - 52.0 % MCV 95.8 77.0 - 99.0 fL MCH 33.9 26.0 - 34.0 pg MCHC 35.3 30.5 - 36.0 % RDW 13.2 11.5 - 15.0 % Platelets 137 (L) 140 - 440 10*3/uL MPV 8.8 (L) 9.0 - 12.7 fL nRBC 0.0 0.0 - 2.0 /100 WBCs Neutrophils Relative 51.7 38.0 - 82.0 % Lymphocytes Relative 33.3 15.0 - 45.0 % Monocytes Relative 12.8 5.0 - 13.0 % Eosinophils Relative 1.2 0.0 - 6.0 % Basophils Relative 0.6 0.0 - 2.0 % Immature Grans % 0.4 0.0 - 2.0 % Neutrophils Absolute 2.6 1.8 - 7.5 10*3/uL Lymphocytes Absolute 1.7 1.0 - 4.3 10*3/uL Monocytes Absolute 0.6 0.0 - 0.9 10*3/uL Eosinophils Absolute 0.1 0.0 - 0.5 10*3/uL Basophils Absolute 0.0 0.0 - 0.2 10*3/uL Immature Grans Absolute 0.0 <0.1 10*3/uL Comprehensive metabolic panel Collection Time: 08/03/24 5:38 PM Result Value Ref Range SODIUM 136 136 - 145 mmol/L POTASSIUM 4.2 3.5 - 5.1 mmol/L CHLORIDE 98 98 - 107 mmol/L CARBON DIOXIDE 26 22 - 29 mmol/L ANION GAP 12 3 - 13 mmol/L UREA NITROGEN 5 (L) 9 - 23 mg/dL CREATININE 0.64 (L) 0.72 - 1.25 mg/dL GLUCOSE 113 (H) 74 - 100 mg/dL CALCIUM 8.4 8.4 - 10.2 mg/dL AST (SGOT) 42 (H) <34 U/L ALT 32 <40 U/L ALKALINE PHOSPHATASE 103 40 - 150 U/L ALBUMIN 3.6 3.5 - 5.0 g/dL BILIRUBIN, TOTAL 0.3 <1.2 mg/dL TOTAL PROTEIN 7.4 6.4 - 8.3 g/dL eGFR >90.0 >60.0 mL/min/1.73m*2 Ethanol Collection Time: 08/03/24 5:38 PM Result Value Ref Range ETHANOL IN SER/PLAS 375 (HH) <10 mg/dL ECG 12 lead Collection Time: 08/03/24 5:54 PM Result Value Ref Range Heart Rate 96 bpm QRSD Interval 86 ms QT Interval 364 ms QTC Interval 461 ms P [place] 35 degrees QRS [place] 80 degrees T Wave [place] 47 degrees [place] Interval 154 ms Drug screen panel, emergency Collection Time: 08/03/24 6:08 PM Result Value Ref Range AMPHETAMINE SCREEN Negative BARBITURATES SCREEN Negative BENZODIAZEPINE SCREEN Negative COCAINE METAB. SCREEN Negative METHADONE SCREEN Negative OPIATES SCREEN Negative OXYCODONE SCREEN Negative PHENCYCLIDINE SCREEN Negative FENTANYL SCREEN, UR QUAL Negative MEDICATIONS Home Meds Current Outpatient Medications Medication Instructions albuterol 108 (90 Base) MCG/ACT inhaler 2 puffs, Inhalation, Every 6 hours PRN calcipotriene (Dovonex) 0.005 % cream Topical, 2 times daily clobetasol (Temovate) 0.05 % cream Topical, 2 times daily folic acid (FOLVITE) 1 mg, Oral, Daily gabapentin (NEURONTIN) 600 mg, Oral, 3 times daily melatonin 5 mg, Oral, Nightly Multiple Vitamins tablet 1 tablet, Oral, Daily naltrexone (DEPADE) 50 mg, Oral, Daily nicotine polacrilex (NICOTINE MINI) 4 mg, Mouth/Throat, Every 2 hour PRN pantoprazole (PROTONIX) 40 mg, Oral, Daily thiamine ((VITAMIN B-1)) 100 mg, Daily Thiamine Mononitrate (VITAMIN B1) 100 mg, Oral, Daily Vivitrol 380 mg, IntraMUSCular, Every 28 days Scheduled Inpatient Meds acyclovir, 800 mg, Oral, 5x daily diazePAM, 10 mg, Oral, q6h folic acid, 1 mg, Oral, Daily gabapentin, 800 mg, Oral, TID Lidocaine, 1 patch, TransDERmal, Daily pantoprazole, 40 mg, Oral, Daily thiamine, 100 mg, Oral, Daily PRN Inpatient Meds PRN medications: albuterol, aluminum & magnesium hydroxide-simethicone, cloNIDine, diazePAM, dicyclomine, hydrOXYzine pamoate, ibuprofen, naloxone, nicotine polacrilex, ondansetron ODT OR ondansetron, oxyCODONE, traZODone Continuous Inpatient Infusions ASSESSMENT & PLAN Alcohol use disorder Counseled patient on biopsychosocial consequences of substance use. Encouraged professional chemical dependency treatment. Encouraged 12 step meeting attendance. Follow up plans for addiction management discussed with patient: Will start baclofen 10 mg TID as adjunctive craving control,. Alcohol withdrawal Last use of alcohol was on 08/03/24. Valium taper to manage alcohol withdrawal symptoms. Valium 10 mg q 6 hours for today. Continue thiamine 100 mg and folic acid 1 mg. CIWA scores per unit protocol. PRN medications for withdrawal symptom management added. Encouraged to participate in all unit activities. Alcoholic peripheral neuropathy Continue home Gabapentin 800 mg TID. Elevated transaminase Hx of fatty liver AST 42 on admission Will add daily CMP to check liver function. Acute shingles - Herpes zoster reactivation Consult IMS for evaluation and management IMS started patient on acyclovir 800 mg 5 times daily. Disposition: Discharge anticipated in 3-5 days. This is pending: Resolution of withdrawal symptoms. Medical stabilization. Labs/tests/tasks to review: Daily vitals, LFT's. Consultants to coordinate care with: IMS. Associated attestation - Jonatan Mckeon MD - 08/04/2024 1:32 PM EDT I saw and evaluated the patient, participating in the laboy portions of the service. We reviewed the patient's medical record and test results. I personally spent a total 55 minutes in counseling and discussion with the patient and coordination of care. This included a face to face evaluation and physical examination, and documenting clinical information on the day of visit. I have reviewed the resident's note. I agree with the resident s findings and plan, with any additions or corrections listed below. Greatly appreciate IM consult for shingles management - ok to use opioids for pain for now. Also has lidocaine patch ordered. CDT 05/08/24: 6.8% CDT 08/04/24: pending Ordered given recidivistic behavior documented in this encounter [facility] 08-04-2024 Note Formatting of this n ote might be different from the original. Patient reports plans to engage in [place] [facility]. Declining residential as an option at current time. ELDER COUNSELOR will assist with scheduling patient intake appointment. [facility] 08-04-2024 Note Formatting of this n ote might be different from the original. Patient reports plans to engage in [place] [facility]. Declining residential as an option at current time. ELDER COUNSELOR will assist with scheduling patient intake appointment. T [facility] 08-04-2024 Consult note Formatting of th is note is different from the original. Hospital Medicine Consult Patient - Maria De Jesus Hogan, Age - 58 y.o. - 1965 Room Number - [id number] Consulting - Bryan Rodriguez MD Primary Care Physician - Lynda Rasheed MD Date of Admission - 08/03/2024 4:56 PM Hospital Day - 1 Reason for Consult: Medical Management HISTORY OF PRESENT ILLNESS: Maria De Jesus is a 58 y.o. male pmhx below including alcohol use disorder, generalized anxiety, GERD, depression and hypertension who presented to the emergency department as his was requesting detox from alcohol. Patient with a longstanding history of alcohol use disorder, well-known to addiction medicine team, has been previously admitted in our detox unit. Endorsed being started on Vivitrol on his last admission, last injection was July 02, did have approximately 2 weeks in which she was alcohol free but then started drinking again daily. Patient with no history of alcohol withdrawal seizure. Cleared in the emergency department and admitted under addiction medicine team for acute detox. Medical team consulted for evaluation of rash. Patient has findings consistent with shingles across thoracic dermatome extending to back, endorses burning sensation, pruritus. States pain so bad in the area he has not been able to sleep. Said rash has been present approximately 4 days. Has never had shingles in the past. Denies any other symptoms of acute illness including no shortness of breath, chest pain, nausea, vomiting, fever or chills. Past Medical History: Past Medical History: Diagnosis Date Alcohol abuse Alcohol dependence with withdrawal (HCC) 08/31/2019 Alcohol intoxication without use disorder, uncomplicated (HCC) 10/01/2019 Alcohol use disorder 09/10/2022 Alcohol withdrawal syndrome with complication (HCC) 09/27/2021 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) 11/28/2023 Alcohol withdrawal syndrome without complication (HCC) Alcohol withdrawal with inpatient treatment without complication (HCC) 01/20/2024 Alcohol withdrawal, uncomplicated (HCC) 08/31/2019 Alcohol withdrawal, with unspecified complication (HCC) 10/02/2019 Alcohol withdrawal, with unspecified complication (HCC) 10/02/2019 Alcoholic intoxication without complication (CMS/HCC) (HCC) 04/10/2024 Alcoholism (CMS/HCC) (HCC) Anxiety Apical lung nodule Arthritis Maria De Jesus Cerebral artery occlusion with cerebral infarction (HCC) Cerebrovascular disease Depression GERD (gastroesophageal reflux disease) Maria De Jesus Hypertension Insomnia Lung nodule Past Surgical History: Past Surgical History: Procedure Laterality Date COLONOSCOPY 06/10/2020 EGD/Dr Madison/[facility] CYST REMOVAL face EGD (HISTORICAL) 07/23/2022 Dr. Estrella-[facility] SMALL INTESTINE SURGERY UPPER GASTROINTESTINAL ENDOSCOPY 09/27/2021 normal WISDOM TOOTH EXTRACTION Medications: Scheduled PRN diazePAM, 10 mg, Oral, q6h folic acid, 1 mg, Oral, Daily gabapentin, 600 mg, Oral, TID Lidocaine, 1 patch, TransDERmal, Daily pantoprazole, 40 mg, Oral, Daily thiamine, 100 mg, Oral, Daily PRN medications: albuterol, aluminum & magnesium hydroxide-simethicone, cloNIDine, dicyclomine, hydrOXYzine pamoate, ibuprofen, LORazepam OR LORazepam OR LORazepam OR LORazepam OR LORazepam OR LORazepam OR LORazepam OR LORazepam, nicotine polacrilex, ondansetron ODT OR ondansetron, traZODone Continuous Allergies: Bee venom, Nickel, and Tramadol Social History: Social History Socioeconomic History Marital status: Spouse name: Not on file Number of children: Not on file Years of education: Not on file Highest education level: Not on file Occupational History Not on file Tobacco Use Smoking status: Every Day Current packs/day: 2.00 Average packs/day: 2.0 packs/day for 38.8 years (77.6 ttl pk-yrs) Types: Cigarettes, Cigars Start date: 10/10/1985 Passive exposure: Past Smokeless tobacco: Never Tobacco comments: Started at 19, 2 PPD, 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 05/09/2024 Vaping Use Vaping status: Some Days Substance and Sexual Activity Alcohol use: Yes Alcohol/week: 4.0 standard drinks of alcohol Types: 4 Cans of beer per week Comment: Detox home for a week 0 drinks 02/17/23, 6 tall boys/ daily 11/28/23 Drug use: Never Sexual activity: Not Currently Partners: Female control/protection: Other Comment: live with Other Topics Concern Not on file Social History Narrative Not on file Social Drivers of Health Financial Resource Strain: Low Risk (08/04/2024) Overall Financial Resource Strain (CARDIA) Difficulty of Paying Living Expenses: Not hard at all Food Insecurity: No Food Insecurity (08/04/2024) Hunger Vital Sign Worried About Running Out of Food in the Last Year: Never true Ran Out of Food in the Last Year: Never true Transportation Needs: No Transportation Needs (08/04/2024) PRAPARE - Transportation Lack of Transportation (Medical): No Lack of Transportation (Non-Medical): No Physical Activity: Inactive (08/04/2024) Exercise Vital Sign Days of Exercise per Week: 0 days Minutes of Exercise per Session: 0 min Stress: Stress Concern Present (08/04/2024) [place] [employer] - Occupational Stress Questionnaire Feeling of Stress : To some extent Social Connections: Moderately Isolated (08/04/2024) Social Connection and Isolation Panel [NHANES] Frequency of Communication with Friends and Family: Twice a week Frequency of Social Gatherings with Friends and Family: Twice a week Attends Synagogue Services: Never Active Member of Clubs or Organizations: No Attends Club or Organization Meetings: Never Marital Status: Intimate Partner Violence: Not At Risk (08/04/2024) Humiliation, Afraid, Rape, and Kick questionnaire Fear of Current or Ex-Partner: No Emotionally Abused: No Physically Abused: No Sexually Abused: No Housing Stability: Low Risk (08/04/2024) Housing Stability Vital Sign Unable to Pay for Housing in the Last Year: No Number of Times Moved in the Last Year: 0 Homeless in the Last Year: No Family History: Family History Problem Relation Name Age of Onset Depression Sister Maria De Jesus Hogan Other ([id number]) Sister Maria De Jesus Hogan agoraphobia Arthritis Sister Maria De Jesus Hogan Cancer Mother Maria De Jesus Hogan colon rectal cancer; dx after age 50 Other ([id number]) Mother Maria De Jesus Hogan alcoholism Alcohol abuse Mother Maria De Jesus Hogan Stroke Mother Maria De Jesus Hogan Other ([id number]) Father Maria De Jesus Hogan h/o rheumatic fever, cardiac arrest due to bee sting Hypertension Father Maria De Jesus Hogan REVIEW OF SYSTEMS: 10 point ROS obtained, as per HPI, otherwise NEG Physical Exam: Vitals: BP 130/89 Pulse 104 Temp 36.2 C (97.2 F) (Temporal) Resp 16 SpO2 92% BMI Classification: Overweight (BMI 25.0-29.9) Pulse Ox: SpO2 Av.7 % Min: 87 % Max: 97 % Supplemental O2: Physical Exam Vitals and nursing note reviewed. Constitutional: Appearance: Normal appearance. Cardiovascular: Rate and Rhythm: Regular rhythm. Tachycardia present. Pulmonary: Effort: Pulmonary effort is normal. Breath sounds: Wheezing present. Abdominal: General: Bowel sounds are normal. Palpations: Abdomen is soft. Skin: Comments: Erythematous rash, without blisters present to right sided thoracic dermatome, extending around back, does not cross patient's midline. Few scattered scabbed areas, some with erythema not scabbed Neurological: Mental Status: He is alert. LABS: Recent Results (from the past 24 hours) SARS-CoV-2 Antigen Collection Time: 08/03/24 5:34 PM Specimen: Nasal; Swab Result Value Ref Range SARS-CoV-2 Antigen Negative Negative CBC auto differential Collection Time: 08/03/24 5:38 PM Result Value Ref Range Auto WBC 5.0 3.6 - 10.7 10*3/uL RBC 5.05 4.40 - 5.90 10*6/uL Hemoglobin 17.1 13.0 - 18.0 g/dL Hematocrit 48.4 40.0 - 52.0 % MCV 95.8 77.0 - 99.0 fL MCH 33.9 26.0 - 34.0 pg MCHC 35.3 30.5 - 36.0 % RDW 13.2 11.5 - 15.0 % Platelets 137 (L) 140 - 440 10*3/uL MPV 8.8 (L) 9.0 - 12.7 fL nRBC 0.0 0.0 - 2.0 /100 WBCs Neutrophils Relative 51.7 38.0 - 82.0 % Lymphocytes Relative 33.3 15.0 - 45.0 % Monocytes Relative 12.8 5.0 - 13.0 % Eosinophils Relative 1.2 0.0 - 6.0 % Basophils Relative 0.6 0.0 - 2.0 % Immature Grans % 0.4 0.0 - 2.0 % Neutrophils Absolute 2.6 1.8 - 7.5 10*3/uL Lymphocytes Absolute 1.7 1.0 - 4.3 10*3/uL Monocytes Absolute 0.6 0.0 - 0.9 10*3/uL Eosinophils Absolute 0.1 0.0 - 0.5 10*3/uL Basophils Absolute 0.0 0.0 - 0.2 10*3/uL Immature Grans Absolute 0.0 <0.1 10*3/uL Comprehensive metabolic panel Collection Time: 08/03/24 5:38 PM Result Value Ref Range SODIUM 136 136 - 145 mmol/L POTASSIUM 4.2 3.5 - 5.1 mmol/L CHLORIDE 98 98 - 107 mmol/L CARBON DIOXIDE 26 22 - 29 mmol/L ANION GAP 12 3 - 13 mmol/L UREA NITROGEN 5 (L) 9 - 23 mg/dL CREATININE 0.64 (L) 0.72 - 1.25 mg/dL GLUCOSE 113 (H) 74 - 100 mg/dL CALCIUM 8.4 8.4 - 10.2 mg/dL AST (SGOT) 42 (H) <34 U/L ALT 32 <40 U/L ALKALINE PHOSPHATASE 103 40 - 150 U/L ALBUMIN 3.6 3.5 - 5.0 g/dL BILIRUBIN, TOTAL 0.3 <1.2 mg/dL TOTAL PROTEIN 7.4 6.4 - 8.3 g/dL eGFR >90.0 >60.0 mL/min/1.73m*2 Ethanol Collection Time: 08/03/24 5:38 PM Result Value Ref Range ETHANOL IN SER/PLAS 375 (HH) <10 mg/dL ECG 12 lead Collection Time: 08/03/24 5:54 PM Result Value Ref Range Heart Rate 96 bpm QRSD Interval 86 ms QT Interval 364 ms QTC Interval 461 ms P [place] 35 degrees QRS [place] 80 degrees T Wave [place] 47 degrees [place] Interval 154 ms Drug screen panel, emergency Collection Time: 08/03/24 6:08 PM Result Value Ref Range AMPHETAMINE SCREEN Negative BARBITURATES SCREEN Negative BENZODIAZEPINE SCREEN Negative COCAINE METAB. SCREEN Negative METHADONE SCREEN Negative OPIATES SCREEN Negative OXYCODONE SCREEN Negative PHENCYCLIDINE SCREEN Negative FENTANYL SCREEN, UR QUAL Negative Urine Culture: Results for orders placed or performed in visit on 05/20/24 Urine culture (clean catch) Collection Time: 05/20/24 1:40 PM Specimen: Urine, Clean Catch Result Value Ref Range Urine Culture SEE NOTE IMAGING: See report Assessment Data: (CAT1) Reviewed 2 notes from different specialty or health system (each=1). (CAT1) Reviewed 3 or more labs/studies ordered by another provider not previously counted (each=1, panels count as 1). (CAT2) EKG reviewed & showed sinus rhythm as interpreted by me. (LOW: 2x CAT1 or independent historian MOD: 3x CAT1 or 1x CAT3 EXTENSIVE: 3x CAT1 and 1x CAT3) Acute, acute on chronic, unstable/uncontrolled chronic problems/diagnoses: Alcohol withdrawal syndrome without complication Alcohol use disorder Herpes zoster Abnormal lung sounds Suspect secondary to patient's chronic tobacco use disorder Stable chronic problems affecting care, new non-acute diagnoses: Hypertension Generalized anxiety Cerebrovascular disease GERD Depression Neuropathy Plan As a result of the above findings & factors, the following mgmt was pursued: - Primary care and management per addiction medicine team -Continue acyclovir 7-day course -Will increase patient's home gabapentin to 800 mg 3 times daily from 600 mg to assist with pain -Oxy IR as needed for severe pain -Vistaril in place for anxiety, will modify this order to also include use for pruritus symptoms -Continue patient's albuterol as needed for wheezing or shortness of breath -area scabbed, no blisters noted, no indication for isolation -supportive measures - am labs, replace lytes prn - CM/SW - delirium precautions: increase activity and limit nighttime disturbances - DVT prophylaxis: encourage ambulation Complexity: Acute illness with systemic symptoms (MOD). Risk: Prescription drug/IVF/colloid was initiated, discontinued, adjusted; or reviewed with decision to maintain current orders (MOD). Advance Directive: Full Code Anticipated Discharge - Date -to be determined per admitting team Total time spent (which include face to face and non face to face encounters) : 60 minutes Extended Emergency Contact Information Primary Emergency Contact: [place]aski,April Mobile Relation: Spouse JUAN Baker CNP Division of Hospitalist Medicine [facility] Cosigned by Dawn Sanchez MD at 08/04/2024 11:16 AM EDT Associated attestation - Dawn Sanchez MD - 08/04/2024 11:16 AM EDT Hospitalist Progress Note 08/04/[phone]: Please page me ([phone]) for patient care issues. [phone]: Please page [facility] Hospitalist for any issues. Subjective: Admit Date: 08/03/2024 PCP: Lynda Rasheed MD Room#: [id number] I have evaluated the patient and reviewed the case with the LENY. I agree with the current plan of care including the workup, evaluation, management, and diagnosis. Care plan has been discussed. The documentation below has been reviewed. Greater than 51% of the 15 minute face to face encounter was spent discussing/counseling the patient regarding the care plan for this patient. The patient was seen and examined independently and relevant data reviewed by myself. A full chart review was performed. S: 58yo patient with PMH of AUD, anxiety, depression, GERD, HTN, and cerebral artery occlusion with infarct, presented to [facility] on 08/03 for alcohol detox at 's request. O: BP 118/91 Pulse 110 Temp (!) 35.9 C (96.6 F) (Temporal) Resp 16 SpO2 92% Exam shows erythematous lesions in dermatomal pattern on right chest wall, with small postulations and scabbing, consistent with herpes zoster. Otherwise no acute distress, resp rate regular. Laying in bed. A&P for acute issues: - Alcohol Use Disorder - Initiate alcohol detox protocol; ADM following for this Herpes Zoster - Continue treatment for herpes zoster with antiviral agent - Adjust pain management regimen, including gabapentin (adjusting dose) and oxy prn Rest per below Total time spent (which include face to face and non face to face encounters) : 20 minutes Dawn Sanchez MD Division of Hospitalist Medicine [facility] 11:08 AM 08/04/24 [employer] Phone: 08-04-2024 Consult note Formatting of th is note is different from the original. Hospital Medicine Consult Patient - Maria De Jesus Hogan, Age - 58 y.o. - 1965 Room Number - [id number] Consulting - Bryan Rodriguez MD Primary Care Physician - [id number] Date of Admission - 08/03/2024 4:56 PM Hospital Day - 1 Reason for Consult: Medical Management HISTORY OF PRESENT ILLNESS: Maria De Jesus is a 58 y.o. male pmhx below including alcohol use disorder, generalized anxiety, GERD, depression and hypertension who presented to the emergency department as his was requesting detox from alcohol. Patient with a longstanding history of alcohol use disorder, well-known to addiction medicine team, has been previously admitted in our detox unit. Endorsed being started on Vivitrol on his last admission, last injection was July 02, did have approximately 2 weeks in which she was alcohol free but then started drinking again daily. Patient with no history of alcohol withdrawal seizure. Cleared in the emergency department and admitted under addiction medicine team for acute detox. Medical team consulted for evaluation of rash. Patient has findings consistent with shingles across thoracic dermatome extending to back, endorses burning sensation, pruritus. States pain so bad in the area he has not been able to sleep. Said rash has been present approximately 4 days. Has never had shingles in the past. Denies any other symptoms of acute illness including no shortness of breath, chest pain, nausea, vomiting, fever or chills. Past Medical History: Past Medical History: Diagnosis Date Alcohol abuse Alcohol dependence with withdrawal (HCC) 08/31/2019 Alcohol intoxication without use disorder, uncomplicated (HCC) 10/01/2019 Alcohol use disorder 09/10/2022 Alcohol withdrawal syndrome with complication (HCC) 09/27/2021 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) 11/28/2023 Alcohol withdrawal syndrome without complication (HCC) Alcohol withdrawal with inpatient treatment without complication (HCC) 01/20/2024 Alcohol withdrawal, uncomplicated (HCC) 08/31/2019 Alcohol withdrawal, with unspecified complication (HCC) 10/02/2019 Alcohol withdrawal, with unspecified complication (HCC) 10/02/2019 Alcoholic intoxication without complication (CMS/HCC) (HCC) 04/10/2024 Alcoholism ([facility]/HCC) (HCC) Anxiety Apical lung nodule Arthritis Maria De Jesus Cerebral artery occlusion with cerebral infarction (HCC) Cerebrovascular disease Depression GERD (gastroesophageal reflux disease) Maria De Jesus Hypertension Insomnia Lung nodule Past Surgical History: Past Surgical History: Procedure Laterality Date COLONOSCOPY 06/10/2020 EGD/Dr Madison/[facility] CYST REMOVAL face EGD (HISTORICAL) 07/23/2022 Dr. Estrella-[facility] SMALL INTESTINE SURGERY UPPER GASTROINTESTINAL ENDOSCOPY 09/27/2021 normal WISDOM TOOTH EXTRACTION Medications: Scheduled PRN diazePAM, 10 mg, Oral, q6h folic acid, 1 mg, Oral, Daily gabapentin, 600 mg, Oral, TID Lidocaine, 1 patch, TransDERmal, Daily pantoprazole, 40 mg, Oral, Daily thiamine, 100 mg, Oral, Daily PRN medications: albuterol, aluminum & magnesium hydroxide-simethicone, cloNIDine, dicyclomine, hydrOXYzine pamoate, ibuprofen, LORazepam OR LORazepam OR LORazepam OR LORazepam OR LORazepam OR LORazepam OR LORazepam OR LORazepam, nicotine polacrilex, ondansetron ODT OR ondansetron, traZODone Continuous Allergies: Bee venom, Nickel, and Tramadol Social History: Social History Socioeconomic History Marital status: Spouse name: Not on file Number of children: Not on file Years of education: Not on file Highest education level: Not on file Occupational History Not on file Tobacco Use Smoking status: Every Day Current packs/day: 2.00 Average packs/day: 2.0 packs/day for 38.8 years (77.6 ttl pk-yrs) Types: Cigarettes, Cigars Start date: 10/10/1985 Passive exposure: Past Smokeless tobacco: Never Tobacco comments: Started at 19, 2 PPD, 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 05/09/2024 Vaping Use Vaping status: Some Days Substance and Sexual Activity Alcohol use: Yes Alcohol/week: 4.0 standard drinks of alcohol Types: 4 Cans of beer per week Comment: Detox home for a week 0 drinks 02/17/23, 6 tall boys/ daily 11/28/23 Drug use: Never Sexual activity: Not Currently Partners: Female control/protection: Other Comment: live with Other Topics Concern Not on file Social History Narrative Not on file Social Drivers of Health Financial Resource Strain: Low Risk (08/04/2024) Overall Financial Resource Strain (CARDIA) Difficulty of Paying Living Expenses: Not hard at all Food Insecurity: No Food Insecurity (08/04/2024) Hunger Vital Sign Worried About Running Out of Food in the Last Year: Never true Ran Out of Food in the Last Year: Never true Transportation Needs: No Transportation Needs (08/04/2024) PRAPARE - Transportation Lack of Transportation (Medical): No Lack of Transportation (Non-Medical): No Physical Activity: Inactive (08/04/2024) Exercise Vital Sign Days of Exercise per Week: 0 days Minutes of Exercise per Session: 0 min Stress: Stress Concern Present (08/04/2024) [place] [employer] - Occupational Stress Questionnaire Feeling of Stress : To some extent Social Connections: Moderately Isolated (08/04/2024) Social Connection and Isolation Panel [NHANES] Frequency of Communication with Friends and Family: Twice a week Frequency of Social Gatherings with Friends and Family: Twice a week Attends Synagogue Services: Never Active Member of Clubs or Organizations: No Attends Club or Organization Meetings: Never Marital Status: Intimate Partner Violence: Not At Risk (08/04/2024) Humiliation, Afraid, Rape, and Kick questionnaire Fear of Current or Ex-Partner: No Emotionally Abused: No Physically Abused: No Sexually Abused: No Housing Stability: Low Risk (08/04/2024) Housing Stability Vital Sign Unable to Pay for Housing in the Last Year: No Number of Times Moved in the Last Year: 0 Homeless in the Last Year: No Family History: Family History Problem Relation Name Age of Onset Depression Sister Maria De Jesus Hogan Other ([id number]) Sister Maria De Jesus Hogan agoraphobia Arthritis Sister Maria De Jesus Hogan Cancer Mother Maria De Jesus Hogan colon rectal cancer; dx after age 50 Other ([id number]) Mother Maria De Jesus Hogan alcoholism Alcohol abuse Mother Maria De Jesus Hogan Stroke Mother Maria De Jesus Hogan Other ([id number]) Father Maria De Jesus Hogan h/o rheumatic fever, cardiac arrest due to bee sting Hypertension Father Maria De Jesus Hogan REVIEW OF SYSTEMS: 10 point ROS obtained, as per HPI, otherwise NEG Physical Exam: Vitals: BP 130/89 Pulse 104 Temp 36.2 C (97.2 F) (Temporal) Resp 16 SpO2 92% BMI Classification: Overweight (BMI 25.0-29.9) Pulse Ox: SpO2 Av.7 % Min: 87 % Max: 97 % Supplemental O2: Physical Exam Vitals and nursing note reviewed. Constitutional: Appearance: Normal appearance. Cardiovascular: Rate and Rhythm: Regular rhythm. Tachycardia present. Pulmonary: Effort: Pulmonary effort is normal. Breath sounds: Wheezing present. Abdominal: General: Bowel sounds are normal. Palpations: Abdomen is soft. Skin: Comments: Erythematous rash, without blisters present to right sided thoracic dermatome, extending around back, does not cross patient's midline. Few scattered scabbed areas, some with erythema not scabbed Neurological: Mental Status: He is alert. LABS: Recent Results (from the past 24 hours) SARS-CoV-2 Antigen Collection Time: 08/03/24 5:34 PM Specimen: Nasal; Swab Result Value Ref Range SARS-CoV-2 Antigen Negative Negative CBC auto differential Collection Time: 08/03/24 5:38 PM Result Value Ref Range Auto WBC 5.0 3.6 - 10.7 10*3/uL RBC 5.05 4.40 - 5.90 10*6/uL Hemoglobin 17.1 13.0 - 18.0 g/dL Hematocrit 48.4 40.0 - 52.0 % MCV 95.8 77.0 - 99.0 fL MCH 33.9 26.0 - 34.0 pg MCHC 35.3 30.5 - 36.0 % RDW 13.2 11.5 - 15.0 % Platelets 137 (L) 140 - 440 10*3/uL MPV 8.8 (L) 9.0 - 12.7 fL nRBC 0.0 0.0 - 2.0 /100 WBCs Neutrophils Relative 51.7 38.0 - 82.0 % Lymphocytes Relative 33.3 15.0 - 45.0 % Monocytes Relative 12.8 5.0 - 13.0 % Eosinophils Relative 1.2 0.0 - 6.0 % Basophils Relative 0.6 0.0 - 2.0 % Immature Grans % 0.4 0.0 - 2.0 % Neutrophils Absolute 2.6 1.8 - 7.5 10*3/uL Lymphocytes Absolute 1.7 1.0 - 4.3 10*3/uL Monocytes Absolute 0.6 0.0 - 0.9 10*3/uL Eosinophils Absolute 0.1 0.0 - 0.5 10*3/uL Basophils Absolute 0.0 0.0 - 0.2 10*3/uL Immature Grans Absolute 0.0 <0.1 10*3/uL Comprehensive metabolic panel Collection Time: 08/03/24 5:38 PM Result Value Ref Range SODIUM 136 136 - 145 mmol/L POTASSIUM 4.2 3.5 - 5.1 mmol/L CHLORIDE 98 98 - 107 mmol/L CARBON DIOXIDE 26 22 - 29 mmol/L ANION GAP 12 3 - 13 mmol/L UREA NITROGEN 5 (L) 9 - 23 mg/dL CREATININE 0.64 (L) 0.72 - 1.25 mg/dL GLUCOSE 113 (H) 74 - 100 mg/dL CALCIUM 8.4 8.4 - 10.2 mg/dL AST (SGOT) 42 (H) <34 U/L ALT 32 <40 U/L ALKALINE PHOSPHATASE 103 40 - 150 U/L ALBUMIN 3.6 3.5 - 5.0 g/dL BILIRUBIN, TOTAL 0.3 <1.2 mg/dL TOTAL PROTEIN 7.4 6.4 - 8.3 g/dL eGFR >90.0 >60.0 mL/min/1.73m*2 Ethanol Collection Time: 08/03/24 5:38 PM Result Value Ref Range ETHANOL IN SER/PLAS 375 (HH) <10 mg/dL ECG 12 lead Collection Time: 08/03/24 5:54 PM Result Value Ref Range Heart Rate 96 bpm QRSD Interval 86 ms QT Interval 364 ms QTC Interval 461 ms P [place] 35 degrees QRS [place] 80 degrees T Wave [place] 47 degrees VA Interval 154 ms Drug screen panel, emergency Collection Time: 08/03/24 6:08 PM Result Value Ref Range AMPHETAMINE SCREEN Negative BARBITURATES SCREEN Negative BENZODIAZEPINE SCREEN Negative COCAINE METAB. SCREEN Negative METHADONE SCREEN Negative OPIATES SCREEN Negative OXYCODONE SCREEN Negative PHENCYCLIDINE SCREEN Negative FENTANYL SCREEN, UR QUAL Negative Urine Culture: Results for orders placed or performed in visit on 05/20/24 Urine culture (clean catch) Collection Time: 05/20/24 1:40 PM Specimen: Urine, Clean Catch Result Value Ref Range Urine Culture SEE NOTE IMAGING: See report Assessment Data: (CAT1) Reviewed 2 notes from different specialty or health system (each=1). (CAT1) Reviewed 3 or more labs/studies ordered by another provider not previously counted (each=1, panels count as 1). (CAT2) EKG reviewed & showed sinus rhythm as interpreted by me. (LOW: 2x CAT1 or independent historian MOD: 3x CAT1 or 1x CAT3 EXTENSIVE: 3x CAT1 and 1x CAT3) Acute, acute on chronic, unstable/uncontrolled chronic problems/diagnoses: Alcohol withdrawal syndrome without complication Alcohol use disorder Herpes zoster Abnormal lung sounds Suspect secondary to patient's chronic tobacco use disorder Stable chronic problems affecting care, new non-acute diagnoses: Hypertension Generalized anxiety Cerebrovascular disease GERD Depression Neuropathy Plan As a result of the above findings & factors, the following mgmt was pursued: - Primary care and management per addiction medicine team -Continue acyclovir 7-day course -Will increase patient's home gabapentin to 800 mg 3 times daily from 600 mg to assist with pain -Oxy IR as needed for severe pain -Vistaril in place for anxiety, will modify this order to also include use for pruritus symptoms -Continue patient's albuterol as needed for wheezing or shortness of breath -area scabbed, no blisters noted, no indication for isolation -supportive measures - am labs, replace lytes prn - CM/SW - delirium precautions: increase activity and limit nighttime disturbances - DVT prophylaxis: encourage ambulation Complexity: Acute illness with systemic symptoms (MOD). Risk: Prescription drug/IVF/colloid was initiated, discontinued, adjusted; or reviewed with decision to maintain current orders (MOD). Advance Directive: Full Code Anticipated Discharge - Date -to be determined per admitting team Total time spent (which include face to face and non face to face encounters) : 60 minutes Extended Emergency Contact Information Primary Emergency Contact: [place],April Mobile Relation: Spouse JUAN Baker CNP Division of Hospitalist Medicine [facility] Cosigned by Dawn Sanchez MD at 08/04/2024 11:16 AM EDT Associated attestation - Dawn Sanchez MD - 08/04/2024 11:16 AM EDT Hospitalist Progress Note 08/04/2024 [phone]: Please page me ([phone]) for patient care issues. [phone]: Please page [facility] night Hospitalist for any issues. Subjective: Admit Date: 08/03/2024 PCP: Lynda Rasheed MD Room#: [id number] A I have evaluated the patient and reviewed the case with the LENY. I agree with the current plan of care including the workup, evaluation, management, and diagnosis. Care plan has been discussed. The documentation below has been reviewed. Greater than 51% of the 15 minute face to face encounter was spent discussing/counseling the patient regarding the care plan for this patient. The patient was seen and examined independently and relevant data reviewed by myself. A full chart review was performed. S: 58yo patient with PMH of AUD, anxiety, depression, GERD, HTN, and cerebral artery occlusion with infarct, presented to [facility] on 08/03 for alcohol detox at 's request. O: BP 118/91 Pulse 110 Temp (!) 35.9 C (96.6 F) (Temporal) Resp 16 SpO2 92% Exam shows erythematous lesions in dermatomal pattern on right chest wall, with small postulations and scabbing, consistent with herpes zoster. Otherwise no acute distress, resp rate regular. Laying in bed. A&P for acute issues: - Alcohol Use Disorder - Initiate alcohol detox protocol; ADM following for this Herpes Zoster - Continue treatment for herpes zoster with antiviral agent - Adjust pain management regimen, including gabapentin (adjusting dose) and oxy prn Rest per below Total time spent (which include face to face and non face to face encounters) : 20 minutes Dawn Sanchez MD Division of Hospitalist Medicine [facility] 11:08 AM 08/04/24 documented in this encounter [facility] 08-04-2024 Hospital Discharge instructions JEREMY Solis - 08/04/2024 8:01 AM EDT After detox you should abstain from any use of any mood altering chemical Appointment with your primary care physician should be scheduled It is highly recommended that you attend post hospital treatment Please read the information give to you - Intro to 12 step programs Call the National Suicide Prevention Hotline if needed at: 3-364-969-TMLX (5222) Please call the following number should you have questions regarding your discharge or aftercare appointments: [facility] The following attachments cannot be sent through Care Everywhere.Alcohol Use Disorder Discharge Instructions (Rwandan)documented in this encounter [facility] 08-04-2024 Note Formatting of this n ote is different from the original. Behavioral Health Psycho-Social Assessment (Social Work) Date: 08/04/2024 Patient Name: Maria De Jesus Hogan : 1965 Identifying Information: Patient is a 58-year-old male mated to [facility] for detox and alcohol. Patient is well-known to addiction medicine team. Previously on the unit on 06/02/2024 but left AMA on 06/04/2024. Reports that his family members had plans to send him out of state to residential treatment. Patient reports that he was started on Vivitrol and last injection was on 07/02/2024. Reports having 2 weeks that he was alcohol free but then started drinking daily again. Presenting Problem: Patient presented to the ED on 08/03/2024 requesting detox of alcohol. Came in with who is also requesting detox. Longstanding history of alcohol use disorder. Reports after last admission he started on Vivitrol. Last injection 07/02/2024. Reports 2 weeks of sobriety but then started drinking again. Patient reports he is drinking 69, 12 ounce beers daily. Reports they are 5 to 8% ABV. No history of alcohol withdrawal seizures. No current SI/HI. Last drink was just prior to arrival in the ED. Psychiatric History: Patient has mental health diagnosis depression anxiety. Patient denies being on any medication for mental health needs. Patient has previous engagement with outpatient mental health providers but denies any current treatment. Patient has history of noncompliance with treatment medications Patient has history of psychiatric admission. Reports admissions were due to suicidal ideation while intoxicated. Denies history of recent or past history suicide attempts. Patient denies current SI/HI/AVH. Patient does have an extensive history of passive SI secondary to intoxication. Patient denies plan, intent, or method but reports more increased feelings of depression and sadness. Patient denies recent or past history of SIB. Substance Abuse/Use: Patient reports that he is currently drinking upwards of 9, 24 ounce Natty Daddy beers daily. Patient reports his last drink was 08/03/2024.. Patient labs are positive for alcohol (0.175). Patient first drank alcohol when he was [age] years old. Patient reports that his use was regular in his 20s, and problematic 12 years ago. He cannot identify a trigger to his problematic use, other than, I like beer . He drinks the point of intoxication, blackouts, and vomiting. He denies history of withdrawal seizure, alcohol overdoses, or DTs. Patient does have extensive history of falls while intoxicated. Patient denies any history of MAT engagement. Patient reports his longest period of sobriety was 6 months. Patient most recently only being able to maintain sobriety for 2 weeks. Patient has previous history of detox occurring on 06/02/2024 (AMA), 05/07/2024, 01/23/2024, 07/27/2023, 07/08/2023, 02/08/2023, 05/20/2023 (medical), 10/25/2021, 02/15/2021 (left AMA), 06/09/20, 10/01/19, 08/31/19 (left AMA), 2017 (left AMA), and 2015 (left AMA). He denies history of residential treatment Patient reports previous history of engagement with AA as well as IOP. Patient most recently was assessed for IOP but did not complete any programming and was dismissed. Medical/Self-care Issues: Patient has medical issues such as COPD, Lombardo's esophagus, macrocytosis, and HTN. Patient has ongoing struggles with self-care secondary to substance use disorder. Patient is increased in both frequency and tolerance over time. Patient also report struggling to recover from the effects of his substance use. Patient reports experiencing poor nutrition and sleep secondary to his substance use. Legal/Trauma/ History: Patient denies any current legal issues. Patient reports past legal history of child support violations. Patient denies any history of childhood abuse. Patient does report however his father when he was 11 years old which was a traumatic incident to him. Patient denies any history of trauma abuse as an adult. Patient denies any history [place] or status. Family Constellation/Childhood History: Patient reports that he is currently to his living in [facility]. Patient reports that he has 3 biological children and 4 stepchildren. Patient reports that his father in his 11 years old. Patient did not report his mother is still alive currently. Patient was born and raised in [place], [place] by his mother and father. He reports that his father when he was 11 years old, and this was traumatic for him. Patient reports that he was raised primarily by his mother for the remainder of his childhood. He denies childhood abuse. Education/Work: Patient reports that he graduated high school. 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 Patient denies SSI/SSD. Cultural/Spirituality/Leisure: Patient denies any cultural needs or concerns at the current time. Patient denies identify any yarsanism preference. It is unknown if patient is attending services anywhere currently. Patient reports he used to enjoy leisure activities such as golfing but has been unable to do so due to his ongoing substance use disorder. Support Systems/Collateral Information: Patient reports that his is his primary social. Patient reports that she is sober and supportive of his recovery needs and efforts. Patient reports that his is aware that he is admitted to the hospital. C-SSRS Actual Attempt (Past 3 Months): No (Patient has history of psychiatric admission. Reports admissions were due to suicidal ideation while intoxicated. Denies history of recent history suicide attempts) Actual Attempt (Lifetime): No (Patient denies any past history of suicide attempts) Interrupted Attempts (Past 3 Months): No (Patient denies) Interrupted Attempts (Lifetime): No (Patient denies) Aborted or Self-Interrupted Attempt (Past 3 Months): No (Patient denies) Aborted or Self-Interrupted Attempt (Lifetime): No (Patient denies) Preparatory Acts or Behavior (Past 3 Months): No (Patient denies) Preparatory Acts or Behavior (Lifetime): No (Patient denies) Has subject engaged in non-suicidal self-injurious behavior? (Past 3 Months): No (Patient denies any recent history of SIB) Has subject engaged in non-suicidal self-injurious behavior? (Lifetime): No (Patient denies any past history of SIB) Suicidal Ideation: (Patient denies current SI/HI/AVH. Patient does have an extensive history of passive SI secondary to intoxication. Patient denies plan, intent, or method but reports more increased feelings of depression and sadness.) Activating Events (Recent): Recent loss(es) or other significant negative event(s) (legal, financial, relationship, etc.) Describe:: Ongoing struggles with substance use Treatment History: Previous psychiatric diagnoses and treatments, Non-compliant with treatment, Not receiving treatment (MH DX depression and anxiety. No Rx for MH. Patient has previous engagement with outpatient mental health providers but denies any current treatment. Patient has history of noncompliance with treatment medications) Clinical Status (Recent): Substance abuse or dependence, Hopelessness, Major depressive episode, Agitation or severe anxiety, Perceived burden on family or others, Highly impulsive behavior (Risk factors) Protective Factors (Recent): Responsibility to family or others and/or living with family, Supportive social network or family, Identifies reasons for living (Protective factors) Describe any suicidal, self-injurious or aggressive behavior (include dates): Patient has history of psychiatric admission. Reports admissions were due to suicidal ideation while intoxicated. Denies history of recent or past history suicide attempts. Patient denies current SI/HI/AVH. Patient does have an extensive history of passive SI secondary to intoxication. Patient denies plan, intent, or method but reports more increased feelings of depression and sadness. Patient denies recent or past history of SIB. Patient has mental health diagnosis depression anxiety. Patient denies being on any medication for mental health needs. Patient has previous engagement with outpatient mental health providers but denies any current treatment. Patient has history of noncompliance with treatment medications Plan: Current plan is for patient stabilization. ELDER COUNSELOR patient will continue work together to establish appropriate aftercare plan based on patient sobriety, needs, and resource available to local community. Patient encouraged to engage in all activities that are offered to them while they are on the unit. Patient report needing additional current time. Patient encouraged to seek out ELDER COUNSELOR unit staff should they identify any additional needs or concerns. Comment: Please note this report has been produced using speech recognition software and may contain errors related to that system including errors in grammar, punctuation, and spelling, as well as words and phrases that may be inappropriate. If there are any questions or concerns please feel free to contact the dictating provider for clarification. [facility] 08-04-2024 Note Formatting of this n ote is different from the original. Behavioral Health Psycho-Social Assessment (Social Work) Date: 08/04/2024 Patient Name: Maria De Jesus Hogan : 1965 Identifying Information: Patient is a 58-year-old male mated to [facility] for detox and alcohol. Patient is well-known to addiction medicine team. Previously on the unit on 06/02/2024 but left AMA on 06/04/2024. Reports that his family members had plans to send him out of state to residential treatment. Patient reports that he was started on Vivitrol and last injection was on 07/02/2024. Reports having 2 weeks that he was alcohol free but then started drinking daily again. Presenting Problem: Patient presented to the ED on 08/03/2024 requesting detox of alcohol. Came in with who is also requesting detox. Longstanding history of alcohol use disorder. Reports after last admission he started on Vivitrol. Last injection 07/02/2024. Reports 2 weeks of sobriety but then started drinking again. Patient reports he is drinking 69, 12 ounce beers daily. Reports they are 5 to 8% ABV. No history of alcohol withdrawal seizures. No current SI/HI. Last drink was just prior to arrival in the ED. Psychiatric History: Patient has mental health diagnosis depression anxiety. Patient denies being on any medication for mental health needs. Patient has previous engagement with outpatient mental health providers but denies any current treatment. Patient has history of noncompliance with treatment medications Patient has history of psychiatric admission. Reports admissions were due to suicidal ideation while intoxicated. Denies history of recent or past history suicide attempts. Patient denies current SI/HI/AVH. Patient does have an extensive history of passive SI secondary to intoxication. Patient denies plan, intent, or method but reports more increased feelings of depression and sadness. Patient denies recent or past history of SIB. Substance Abuse/Use: Patient reports that he is currently drinking upwards of 9, 24 ounce Natty Daddy beers daily. Patient reports his last drink was 08/03/2024.. Patient labs are positive for alcohol (0.175). Patient first drank alcohol when he was [age] years old. Patient reports that his use was regular in his 20s, and problematic 12 years ago. He cannot identify a trigger to his problematic use, other than, I like beer . He drinks the point of intoxication, blackouts, and vomiting. He denies history of withdrawal seizure, alcohol overdoses, or DTs. Patient does have extensive history of falls while intoxicated. Patient denies any history of MAT engagement. Patient reports his longest period of sobriety was 6 months. Patient most recently only being able to maintain sobriety for 2 weeks. Patient has previous history of detox occurring on 06/02/2024 (AMA), 05/07/2024, 01/23/2024, 07/27/2023, 07/08/2023, 02/08/2023, 05/20/2023 (medical), 10/25/2021, 02/15/2021 (left AMA), 06/09/20, 10/01/19, 08/31/19 (left AMA), 2017 (left AMA), and 2014 (left AMA). He denies history of residential treatment Patient reports previous history of engagement with AA as well as IOP. Patient most recently was assessed for IOP but did not complete any programming and was dismissed. Medical/Self-care Issues: Patient has medical issues such as COPD, Lombardo's esophagus, macrocytosis, and HTN. Patient has ongoing struggles with self-care secondary to substance use disorder. Patient is increased in both frequency and tolerance over time. Patient also report struggling to recover from the effects of his substance use. Patient reports experiencing poor nutrition and sleep secondary to his substance use. Legal/Trauma/ History: Patient denies any current legal issues. Patient reports past legal history of child support violations. Patient denies any history of childhood abuse. Patient does report however his father when he was 11 years old which was a traumatic incident to him. Patient denies any history of trauma abuse as an adult. Patient denies any history [place] or status. Family Constellation/Childhood History: Patient reports that he is currently to his living in [facility]. Patient reports that he has 3 biological children and 4 stepchildren. Patient reports that his father in his 11 years old. Patient did not report his mother is still alive currently. Patient was born and raised in [place], [place] by his mother and father. He reports that his father when he was 11 years old, and this was traumatic for him. Patient reports that he was raised primarily by his mother for the remainder of his childhood. He denies childhood abuse. Education/Work: Patient reports that he graduated high school. 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 Patient denies SSI/SSD. Cultural/Spirituality/Leisure: Patient denies any cultural needs or concerns at the current time. Patient denies identify any yarsanism preference. It is unknown if patient is attending services anywhere currently. Patient reports he used to enjoy leisure activities such as golfing but has been unable to do so due to his ongoing substance use disorder. Support Systems/Collateral Information: Patient reports that his is his primary social. Patient reports that she is sober and supportive of his recovery needs and efforts. Patient reports that his is aware that he is admitted to the hospital. C-SSRS Actual Attempt (Past 3 Months): No (Patient has history of psychiatric admission. Reports admissions were due to suicidal ideation while intoxicated. Denies history of recent history suicide attempts) Actual Attempt (Lifetime): No (Patient denies any past history of suicide attempts) Interrupted Attempts (Past 3 Months): No (Patient denies) Interrupted Attempts (Lifetime): No (Patient denies) Aborted or Self-Interrupted Attempt (Past 3 Months): No (Patient denies) Aborted or Self-Interrupted Attempt (Lifetime): No (Patient denies) Preparatory Acts or Behavior (Past 3 Months): No (Patient denies) Preparatory Acts or Behavior (Lifetime): No (Patient denies) Has subject engaged in non-suicidal self-injurious behavior? (Past 3 Months): No (Patient denies any recent history of SIB) Has subject engaged in non-suicidal self-injurious behavior? (Lifetime): No (Patient denies any past history of SIB) Suicidal Ideation: (Patient denies current SI/HI/AVH. Patient does have an extensive history of passive SI secondary to intoxication. Patient denies plan, intent, or method but reports more increased feelings of depression and sadness.) Activating Events (Recent): Recent loss(es) or other significant negative event(s) (legal, financial, relationship, etc.) Describe:: Ongoing struggles with substance use Treatment History: Previous psychiatric diagnoses and treatments, Non-compliant with treatment, Not receiving treatment (MH DX depression and anxiety. No Rx for MH. Patient has previous engagement with outpatient mental health providers but denies any current treatment. Patient has history of noncompliance with treatment medications) Clinical Status (Recent): Substance abuse or dependence, Hopelessness, Major depressive episode, Agitation or severe anxiety, Perceived burden on family or others, Highly impulsive behavior (Risk factors) Protective Factors (Recent): Responsibility to family or others and/or living with family, Supportive social network or family, Identifies reasons for living (Protective factors) Describe any suicidal, self-injurious or aggressive behavior (include dates): Patient has history of psychiatric admission. Reports admissions were due to suicidal ideation while intoxicated. Denies history of recent or past history suicide attempts. Patient denies current SI/HI/AVH. Patient does have an extensive history of passive SI secondary to intoxication. Patient denies plan, intent, or method but reports more increased feelings of depression and sadness. Patient denies recent or past history of SIB. Patient has mental health diagnosis depression anxiety. Patient denies being on any medication for mental health needs. Patient has previous engagement with outpatient mental health providers but denies any current treatment. Patient has history of noncompliance with treatment medications Plan: Current plan is for patient stabilization. ELDER COUNSELOR patient will continue work together to establish appropriate aftercare plan based on patient sobriety, needs, and resource available to local community. Patient encouraged to engage in all activities that are offered to them while they are on the unit. Patient report needing additional current time. Patient encouraged to seek out ELDER COUNSELOR unit staff should they identify any additional needs or concerns. Comment: Please note this report has been produced using speech recognition software and may contain errors related to that system including errors in grammar, punctuation, and spelling, as well as words and phrases that may be inappropriate. If there are any questions or concerns please feel free to contact the dictating provider for clarification. [facility] 08-04-2024 Plan of care note Care plan reviewed [facility] 08-04-2024 Nurse Note Pt arrived from ER via cart accompanied by security and transport. Pt steady on his feet at this time x1 assist, . Pt skin check completed upon arrival to unit. Pt has shingles to right flank and back. Pt drinking 8-10 beers a day. Pt smokes 1 and a half packs a day of cigarettes. Denies any other drug use, USACS consulted for shingles management , sores and rash located on right flank and back. Dr. Abe Frey at the bedside to assess whether pt needs isolation, okayed for just standard precautions. Pt alert and oriented, med compliant, pt denies SI/HI/AVH, NV&D. Pt given ibuprofen for right flank and back pain and trazodone for sleep. Pt encouraged to update staff with any change in condition. Will monitor pt for safety. [facility] 08-04-2024 Emergency department Note Transport here for pt. [facility] 08-04-2024 Emergency department Note Transport here for pt. Called report to RN at [facility] 4E. Patient here for a rash on his right rib area around to his back. Burning and painful. Patient also wants to be in rehab for his drinking his last drink was today and he drinks at least 8 tall boys per day. Images from the original note were not included. EMERGENCY DEPARTMENT ENCOUNTER Pt Name: Maria De Jesus Hogan Birthdate 1965 Date of evaluation: 08/03/2024 ED Provider: Debby Mckoy PA-C CHIEF COMPLAINT Chief Complaint Patient presents with Rash On abdomen Back Pain Middle of back. No known injury. 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 Requesting detox HISTORY OF PRESENT ILLNESS (Location/Symptom, Timing/Onset, Context/Setting, Quality, Duration, Modifying Factors, Severity) Note limiting factors. I wore appropriate PPE for the entirety of this encounter. HPI Maria De Jesus Hogan is a 58 y.o. male who presents to the emergency department his requesting detox from alcohol. Patient with longstanding history of alcohol use disorder. Has been admitted to our detox unit in the past. Reports after his last admission, he was started on Vivitrol. Last injection was on 4-3. Reports after that he did have approximately 2 weeks in which he was alcohol free, but then started to drink again daily. Urine came between 6-9 12 void beers between 5 to 8% daily. No history of alcohol withdrawal seizure. Denies any concurrent drug use. No suicidal or homicidal ideation. Last drink was just prior to arrival. Also presents complaining of a rash. Rash has been present for the last 4 days, started on his right ribs, but is now wrapped around towards his back. States the rash is painful, burning in nature, and somewhat pruritic. No associated fevers or chills. No history of shingles, but did have chickenpox in childhood. No new body products, contact exposures, or medication changes that he is aware of. Otherwise denies chest pain, palpitations, shortness of breath, lightheadedness, or dizziness. No numbness, tingling, weakness into the extremities. Nursing Notes were reviewed. Limitations to history: None Outside historians: None REVIEW OF SYSTEMS Review of Systems 14 systems reviewed, positives and pertinent negatives as per HPI. All other systems were reviewed and are negative. 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) 11/28/2023 Alcohol withdrawal syndrome without complication (HCC) Alcohol withdrawal with inpatient treatment without complication (HCC) 01/20/2024 Alcohol withdrawal, uncomplicated (HCC) 08/31/2019 Alcohol withdrawal, with unspecified complication (HCC) 10/02/2019 Alcohol withdrawal, with unspecified complication (HCC) 10/02/2019 Alcoholic intoxication without complication (CMS/HCC) (HCC) 04/10/2024 Alcoholism (CMS/HCC) (HCC) Anxiety Apical lung nodule Arthritis Maria De Jesus Cerebral artery occlusion with cerebral infarction (HCC) Cerebrovascular disease Depression GERD (gastroesophageal reflux disease) Maria De Jesus Hypertension Insomnia Lung nodule SURGICAL HISTORY Past Surgical History: Procedure Laterality Date COLONOSCOPY 06/10/2020 EGD/Dr Madison/[facility] CYST REMOVAL face EGD (HISTORICAL) 07/23/2022 Dr. Estrella-[facility] SMALL INTESTINE SURGERY UPPER GASTROINTESTINAL ENDOSCOPY 09/27/2021 normal WISDOM TOOTH EXTRACTION CURRENT MEDICATIONS Previous Medications ALBUTEROL 108 (90 BASE) MCG/ACT INHALER Inhale 2 puffs every 6 hours as needed for wheezing or shortness of breath. CALCIPOTRIENE (DOVONEX) 0.005 % CREAM Apply topically 2 times daily. CLOBETASOL (TEMOVATE) 0.05 % CREAM Apply topically 2 times daily. FOLIC ACID (FOLVITE) 1 MG TABLET Take 1 tablet (1 mg) by mouth daily. GABAPENTIN (NEURONTIN) 300 MG CAPSULE Take 2 capsules (600 mg) by mouth 3 times daily. MELATONIN 5 MG TABLET Take 1 tablet (5 mg) by mouth Nightly. MULTIPLE VITAMINS TABLET Take 1 tablet by mouth daily. NALTREXONE (DEPADE) 50 MG TABLET Take 1 tablet (50 mg) by mouth daily. NALTREXONE ER (VIVITROL) INJECTION Inject 4 mL (380 mg) into the buttocks every 28 (twenty-eight) days. NICOTINE POLACRILEX (NICOTINE MINI) 4 MG LOZENGE Dissolve 1 lozenge (4 mg) in the mouth every 2 hours as needed for smoking cessation. PANTOPRAZOLE (PROTONIX) 40 MG EC TABLET Take 1 tablet (40 mg) by mouth daily. THIAMINE (,VITAMIN B-1,) 100 MG TABLET Take 100 mg by mouth daily. THIAMINE MONONITRATE (VITAMIN B1) 100 MG TABLET Take 1 tablet (100 mg) by mouth daily. ALLERGIES Bee venom, Nickel, and Tramadol FAMILY HISTORY Family History Problem Relation Name Age of Onset Depression Sister Maria De Jesus Hogan Other ([id number]) Sister Maria De Jesus Hogan agoraphobia Arthritis Sister Maria De Jesus Hgoan Cancer Mother Maria De Jesus Hogan colon rectal cancer; dx after age 50 Other ([id number]) Mother Maria De Jesus Hogan alcoholism Alcohol abuse Mother Maria De Jesus Hogan Stroke Mother Maria De Jesus Hogan Other ([id number]) Father Maria De Jesus Hogan h/o rheumatic fever, cardiac arrest due to bee sting Hypertension Father Maria De Jesus Hogan SOCIAL HISTORY Social History Socioeconomic History Marital status: Tobacco Use Smoking status: Every Day Current packs/day: 2.00 Average packs/day: 2.0 packs/day for 38.8 years (77.6 ttl pk-yrs) Types: Cigarettes, Cigars Start date: 10/10/1985 Passive exposure: Past Smokeless tobacco: Never Tobacco comments: Started at 19, 2 PPD, 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 05/09/2024 Vaping Use Vaping status: Some Days Substance and Sexual Activity Alcohol use: Yes Alcohol/week: 4.0 standard drinks of alcohol Types: 4 Cans of beer per week Comment: Detox home for a week 0 drinks 02/17/23, 6 tall boys/ daily 11/28/23 Drug use: Never Sexual activity: Not Currently Partners: Female control/protection: Other Comment: live with Social Drivers of Health Financial Resource Strain: Low Risk (06/03/2024) Overall Financial Resource Strain (CARDIA) Difficulty of Paying Living Expenses: Not very hard Food Insecurity: No Food Insecurity (06/03/2024) Hunger Vital Sign Worried About Running Out of Food in the Last Year: Never true Ran Out of Food in the Last Year: Never true Transportation Needs: No Transportation Needs (06/02/2024) PRAPARE - Transportation Lack of Transportation (Medical): No Lack of Transportation (Non-Medical): No Physical Activity: Inactive (06/03/2024) Exercise Vital Sign Days of Exercise per Week: 0 days Minutes of Exercise per Session: 0 min Stress: Stress Concern Present (06/03/2024) [place] [employer] Occupational [employer] - Occupational Stress Questionnaire Feeling of Stress : To some extent Social Connections: Socially Isolated (06/04/2024) Social Connection and Isolation Panel [NHANES] Frequency of Communication with Friends and Family: Never Frequency of Social Gatherings with Friends and Family: Never Attends Synagogue Services: Never Active Member of Clubs or Organizations: No Attends Club or Organization Meetings: Never Marital Status: Intimate Partner Violence: Not At Risk (06/03/2024) Humiliation, Afraid, Rape, and Kick questionnaire Fear of Current or Ex-Partner: No Emotionally Abused: No Physically Abused: No Sexually Abused: No Housing Stability: Low Risk (06/02/2024) Housing Stability Vital Sign Unable to Pay for Housing in the Last Year: No Number of Times Moved in the Last Year: 0 Homeless in the Last Year: No SCREENINGS Mylene Coma Scale Best Eye Response: Spontaneous Best Verbal Response: Oriented Best Motor Response: Follows commands Mylene Coma Scale Score: 15 PHYSICAL EXAM ED Triage Vitals [08/03/24 1656] Temp Heart Rate Resp BP 36.7 C (98.1 F) 98 20 (!) 131/98 SpO2 Temp Source Heart Rate Source Patient Position 95 % Temporal Monitor Sitting BP Location FiO2 (%) Right arm -- Physical Exam Vitals and nursing note reviewed. Constitutional: General: He is not in acute distress. Appearance: He is well-developed. Comments: Afebrile, nontoxic. No acute distress. Laying comfortably in bed with present at bedside. HENT: Head: Normocephalic and atraumatic. Eyes: Conjunctiva/sclera: Conjunctivae normal. Cardiovascular: Rate and Rhythm: Normal rate and regular rhythm. Heart sounds: No murmur heard. Comments: Radial pulses intact and symmetric bilaterally. Pulmonary: Effort: Pulmonary effort is normal. No respiratory distress. Breath sounds: Normal breath sounds. Comments: Equal bilaterally. Chest: Comments: Shingles appearing rash as marked above. Extends into the posterior ribs. Does not cross midline. No open, weeping, or bleeding areas. Bittence of secondary infection. Rashes or lesions appreciated elsewhere on the body. Abdominal: Palpations: Abdomen is soft. Tenderness: There is no abdominal tenderness. Musculoskeletal: General: No swelling. Cervical back: Neck supple. Skin: General: Skin is warm and dry. Capillary Refill: Capillary refill takes less than 2 seconds. Neurological: Mental Status: He is alert. Comments: Calm and cooperative. Answering questions and following commands appropriately. No evidence of hallucination or delusion. Speech is not pressured and not rapid. Psychiatric: Mood and Affect: Mood normal. DIAGNOSTIC RESULTS RADIOLOGY (Per Emergency Physician): Interpretation per the Radiologist below, if available at the time of this note: No orders to display LABS: Labs Reviewed CBC WITH AUTO DIFFERENTIAL - Abnormal Result Value Auto WBC 5.0 RBC 5.05 Hemoglobin 17.1 Hematocrit 48.4 MCV 95.8 MCH 33.9 MCHC 35.3 RDW 13.2 Platelets 137 (*) MPV 8.8 (*) nRBC 0.0 Neutrophils Relative 51.7 Lymphocytes Relative 33.3 Monocytes Relative 12.8 Eosinophils Relative 1.2 Basophils Relative 0.6 Immature Grans % 0.4 Neutrophils Absolute 2.6 Lymphocytes Absolute 1.7 Monocytes Absolute 0.6 Eosinophils Absolute 0.1 Basophils Absolute 0.0 Immature Grans Absolute 0.0 COMPREHENSIVE METABOLIC PANEL - Abnormal SODIUM 136 POTASSIUM 4.2 CHLORIDE 98 CARBON DIOXIDE 26 ANION GAP 12 UREA NITROGEN 5 (*) CREATININE 0.64 (*) GLUCOSE 113 (*) CALCIUM 8.4 AST (SGOT) 42 (*) ALT 32 ALKALINE PHOSPHATASE 103 ALBUMIN 3.6 BILIRUBIN, TOTAL 0.3 TOTAL PROTEIN 7.4 eGFR >90.0 ETHANOL - Abnormal ETHANOL IN SER/PLAS 375 (*) Narrative: 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 NOTE: This result is for medical treatment only. Analysis performed using non-forensic procedures. SARS-COV-2 ANTIGEN - Normal SARS-CoV-2 Antigen Negative DRUGS OF ABUSE AMPHETAMINE SCREEN Negative BARBITURATES SCREEN Negative BENZODIAZEPINE SCREEN Negative COCAINE METAB. SCREEN Negative METHADONE SCREEN Negative OPIATES SCREEN Negative OXYCODONE SCREEN Negative PHENCYCLIDINE SCREEN Negative FENTANYL SCREEN, UR QUAL Negative Narrative: The expected value for all of the drugs listed above is Negative. The following drugs or drug groups have been screened for by Immunoassay at the following thresholds: Amphetamine class (1000 ng/mL) Barbiturates (200 ng/mL) Benzodiazepines (200 ng/mL) Cocaine (300 ng/mL) Methadone (300 ng/mL) Opiates (300 ng/mL) Oxycodone (100 ng/mL) PCP (25 ng/mL) Fentanyl (1.0 ng/ml) NOTE: These results are for medical treatment only. Analysis performed using non-forensic procedures. POSITIVE results are NOT confirmed by a more specific alternative method unless requested. If confirmation is needed, request confirmation under separate order. All other labs were within normal range or not returned as of this dictation. EMERGENCY DEPARTMENT COURSE and DIFFERENTIAL DIAGNOSIS/MDM: Vitals: Vitals: 08/03/24 1656 08/03/24 1852 BP: (!) 131/98 (!) 140/90 BP Location: Right arm Right arm Patient Position: Sitting Lying Pulse: 98 84 Resp: 20 20 Temp: 36.7 C (98.1 F) TempSrc: Temporal SpO2: 95% 96% Medications Lidocaine 4 % patch 1 patch (1 patch TransDERmal Medication Applied 08/03/24 1725) gabapentin (Neurontin) capsule 600 mg (has no administration in time range) nicotine polacrilex (Nicorette) gum 2 mg (has no administration in time range) pantoprazole (ProtoNix) EC tablet 40 mg (has no administration in time range) albuterol 108 (90 Base) MCG/ACT inhaler 2 puff (has no administration in time range) aluminum & magnesium hydroxide-simethicone (Mylanta) 200-200-20 MG/5ML oral suspension 10 mL (has no administration in time range) diazePAM (Valium) tablet 10 mg (has no administration in time range) cloNIDine (Catapres) tablet 0.1 mg (has no administration in time range) dicyclomine (Bentyl) capsule 10 mg (has no administration in time range) hydrOXYzine pamoate (Vistaril) capsule 50 mg (has no administration in time range) ibuprofen tablet 400 mg (has no administration in time range) traZODone (Desyrel) tablet 50 mg (has no administration in time range) thiamine (Vitamin B1) tablet 100 mg (has no administration in time range) folic acid (Folvite) tablet 1 mg (has no administration in time range) ondansetron ODT (Zofran-ODT) disintegrating tablet 4 mg (has no administration in time range) Or ondansetron (Zofran) injection 4 mg (has no administration in time range) LORazepam (Ativan) tablet 1 mg (has no administration in time range) Or LORazepam (Ativan) injection 1 mg (has no administration in time range) Or LORazepam (Ativan) tablet 2 mg (has no administration in time range) Or LORazepam (Ativan) injection 2 mg (has no administration in time range) Or LORazepam (Ativan) tablet 3 mg (has no administration in time range) Or LORazepam (Ativan) injection 3 mg (has no administration in time range) Or LORazepam (Ativan) tablet 4 mg (has no administration in time range) Or LORazepam (Ativan) injection 4 mg (has no administration in time range) acyclovir (Zovirax) capsule 800 mg (has no administration in time range) ondansetron ODT (Zofran-ODT) disintegrating tablet 4 mg (4 mg Oral Given 08/03/241807) ED care was supervised by Dr. Demarco who independently examined and evaluated the patient. Please see their attestation note for further details. Nursing notes and medical records reviewed. In external chart review, patient has 10 admissions to our detox unit within the past year. Initial medical management includes Zofran, lidocaine patch Initial workup includes CBC, CMP, ethanol, UDS, COVID antigen, EKG Upon reassessment patient remains nontoxic and in no acute distress. Sitting comfortably in bed with with present at bedside. Lab workup results CBC without leukocytosis or acute anemia. CMP without fluid electrolyte abnormality or NIKKI. Mild bump in his AST but total bilirubin and ALT are normal. Ethanol elevated at 375. UDS negative. Covid negative. EKG: Sinus rhythm with rate of 96. Chronic conditions contributing to patients presentation include alcohol use disorder On examination, patient has what appears to be shingles. He has been having symptoms for more than 72 hours now, but we will plan to start him on acyclovir. Otherwise, he is medically cleared, and stable for admission to detox at this time. Spoke with Dr. Rodriguez via secure chat and on the telephone who accepted patient for admission. Did request to give him a dose of phenobarbital prior to transfer to [facility]. Discussed plans for admission with patient and his , they were comfortable and agreeable plans to be admitted at [facility]. Patient left [place] [facility] in stable condition with stable vitals. FINAL IMPRESSION 1. Alcohol withdrawal syndrome without complication (HCC) 2. Alcohol dependence with inpatient treatment (HCC) 3. Herpes zoster without complication DISPOSITION Admit 08/03/2024 07:06:36 PM Shared decision making preformed. (Comment: Please note this report has been produced using speech recognition software and may contain errors related to that system including errors in grammar, punctuation, and spelling, as well as words and phrases that may be inappropriate. If there are any questions or concerns please feel free to contact the dictating provider for clarification.) Debby Mckoy PA-C (electronically signed) Emergency Medicine Provider Debby Mckoy PA-C 08/03/241920 Cosigned by Matthew Deamrco DO at 08/03/2024 9:11 PM EDT Emergency Department Encounter [facility] Patient: Maria De Jesus Hogan : 1965 Date of Evaluation: 08/03/2024 ED Supervising Physician: Matthew Demarco DO I personally evaluated Maria De Jesus Hogan and made/approved the management plan and take responsibility for the patient management. This will serve as my Supervisory note and shared attestation. I did perform a substantive portion of the visit including all aspects of the Medical Decision Making. I wore appropriate PPE for the entirety of this encounter. In brief, Maria De Jesus Hogan is a 58 y.o. that presents to the emergency department with complaints of back pain and request for detox. Patient was recently admitted to detox and discharge was clean for a few days however started drinking again. Now requesting detox again. Patient also reports that he has been having back pain for a week with a rash that popped up 3 days ago. He denies any fevers, chills, chest pain, shortness of breath, abdominal pain, nausea, vomiting Focused exam: On exam, vitals stable. Gen: Nontoxic appearing. Head: NC/AT. CV: RRR. Resp: CTA bilaterally. Abd: Abd soft and notender. Back: No midline vertebral tenderness, no stepoff, no deformity Ext: No obvious deformity or abnormalities of bilat UE and LE, Pulses 2+ bilateral UE and LE. Neuro: No focal neurologic deficit. Skin: Rash on the right side mid thoracic region consistent with shingles Brief ED course/MDM: Patient with hx of drug abuse presents to the ED with a chief complaint of requests for detox. Additional information found above and also refer to leny/resident note for further details. On exam, vitals stable. stable. Otherwise per above Additional information found above and also refer to leny/resident note for further details. (Differential diagnosis) With consideration of age, sex/gender, risk factors, to evaluate patient for high risk causes of morbidity and mortality such as, but not limited to, substance abuse vs substance abuse withdrawal vs electrolyte abnormalities vs acute infectious process vs other Today we will obtain cbc, cmp, UDS, ethanol, covid We will also provide medical/symptomatic management with symptomatic management. Diagnostic tests considered but not performed: CT imaging, no acute indications. Patient stable. No hx of trauma. Generalized complaints Independently reviewed external documents including previous detox. Per chart review, patient has been followed for or diagnosed with etoh abuse in the past. Patient's condition and/or care was impacted by these chronic conditions. Will consider these factors in evaluation and management for today's care. Discussed plan with patient who agrees with current plan. Diagnostics interpreted by me: Per below I personally discussed the patient's management with other clinicians: Per leny Patient was reassessed. Resting comfortably. No acute distress. Independently reviewed and interpreted the lab results which demonstrated the following: No significant leukocytosis, no significant anemia, covid negative. Ethanol 375, UDS positive for none Response to medical management provided in the ED: improving (Consults) Discussed case with nursing education consultant, detox. They agree with current work up and management. They will evaluate and provide further recommendations, please refer to their note for detailed explanation. Patient will be admitted to detox for further management and care. Discussed all results with patient and/or family members. They verbalize understanding. Offered admission for further management. Discussed risks, benefits and alternatives for further management in the hospital. Due to high risk of morbidity and mortality of the stated findings and results, patient will be admitted for further management and care. Patient is agreeable to the plan. Discussed patient, presentation and workup with admitting team. Admitting team is agreeable to current workup and evaluation. They will admit the patient and provide further care. Pending results to be followed by primary admitting team. Patient's condition and/or care was impacted by drug abuse Patient's condition and/or care was significantly impacted by social determinants of health including: addiction All diagnostic, treatment, and disposition decisions were made by myself in conjunction with the Resident. I also supervised laboy portions of any procedures performed by the Resident. For all further details of the patient's emergency department visit, please see their documentation. (Comment: Please note this report has been produced using speech recognition software and may contain errors related to that system including errors in grammar, punctuation, and spelling, as well as words and phrases that may be inappropriate. If there are any questions or concerns please feel free to contact the dictating provider for clarification.) Matthew Demarco DO [employer] Matthew Demarco DO 08/05/24 0833 documented in this encounter [facility] 08-03-2024 Emergency department Note Called report to RN at [facility]. [facility] 08-03-2024 Emergency department Note Patient here for a rash on his right rib area around to his back. Burning and painful. Patient also wants to be in rehab for his drinking his last drink was today and he drinks at least 8 tall boys per day. [facility] 08-03-2024 Physician Emergency department Note Images from the original note were not included. EMERGENCY DEPARTMENT ENCOUNTER Pt Name: Maria De Jesus Hogan Birthdate 1965 Date of evaluation: 08/03/2024 ED Provider: Debby Mckoy PA-C CHIEF COMPLAINT Chief Complaint Patient presents with Rash On abdomen Back Pain Middle of back. No known injury. 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 Requesting detox HISTORY OF PRESENT ILLNESS (Location/Symptom, Timing/Onset, Context/Setting, Quality, Duration, Modifying Factors, Severity) Note limiting factors. I wore appropriate PPE for the entirety of this encounter. HPI Maria De Jesus Hogan is a 58 y.o. male who presents to the emergency department his requesting detox from alcohol. Patient with longstanding history of alcohol use disorder. Has been admitted to our detox unit in the past. Reports after his last admission, he was started on Vivitrol. Last injection was on 4-3. Reports after that he did have approximately 2 weeks in which he was alcohol free, but then started to drink again daily. Urine came between 6-9 12 void beers between 5 to 8% daily. No history of alcohol withdrawal seizure. Denies any concurrent drug use. No suicidal or homicidal ideation. Last drink was just prior to arrival. Also presents complaining of a rash. Rash has been present for the last 4 days, started on his right ribs, but is now wrapped around towards his back. States the rash is painful, burning in nature, and somewhat pruritic. No associated fevers or chills. No history of shingles, but did have chickenpox in childhood. No new body products, contact exposures, or medication changes that he is aware of. Otherwise denies chest pain, palpitations, shortness of breath, lightheadedness, or dizziness. No numbness, tingling, weakness into the extremities. Nursing Notes were reviewed. Limitations to history: None Outside historians: None REVIEW OF SYSTEMS Review of Systems 14 systems reviewed, positives and pertinent negatives as per HPI. All other systems were reviewed and are negative. 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) 11/28/2023 Alcohol withdrawal syndrome without complication (HCC) Alcohol withdrawal with inpatient treatment without complication (HCC) 01/20/2024 Alcohol withdrawal, uncomplicated (HCC) 08/31/2019 Alcohol withdrawal, with unspecified complication (HCC) 10/02/2019 Alcohol withdrawal, with unspecified complication (HCC) 10/02/2019 Alcoholic intoxication without complication (CMS/HCC) (HCC) 04/10/2024 Alcoholism (CMS/HCC) (HCC) Anxiety Apical lung nodule Arthritis Maria De Jesus Cerebral artery occlusion with cerebral infarction (HCC) Cerebrovascular disease Depression GERD (gastroesophageal reflux disease) Maria De Jesus Hypertension Insomnia Lung nodule SURGICAL HISTORY Past Surgical History: Procedure Laterality Date COLONOSCOPY 06/10/2020 EGD/Dr Madison/B CYST REMOVAL face EGD (HISTORICAL) 07/23/2022 Dr. Estrella-[facility] SMALL INTESTINE SURGERY UPPER GASTROINTESTINAL ENDOSCOPY 09/27/2021 normal WISDOM TOOTH EXTRACTION CURRENT MEDICATIONS Previous Medications ALBUTEROL 108 (90 BASE) MCG/ACT INHALER Inhale 2 puffs every 6 hours as needed for wheezing or shortness of breath. CALCIPOTRIENE (DOVONEX) 0.005 % CREAM Apply topically 2 times daily. CLOBETASOL (TEMOVATE) 0.05 % CREAM Apply topically 2 times daily. FOLIC ACID (FOLVITE) 1 MG TABLET Take 1 tablet (1 mg) by mouth daily. GABAPENTIN (NEURONTIN) 300 MG CAPSULE Take 2 capsules (600 mg) by mouth 3 times daily. MELATONIN 5 MG TABLET Take 1 tablet (5 mg) by mouth Nightly. MULTIPLE VITAMINS TABLET Take 1 tablet by mouth daily. NALTREXONE (DEPADE) 50 MG TABLET Take 1 tablet (50 mg) by mouth daily. NALTREXONE ER (VIVITROL) INJECTION Inject 4 mL (380 mg) into the buttocks every 28 (twenty-eight) days. NICOTINE POLACRILEX (NICOTINE MINI) 4 MG LOZENGE Dissolve 1 lozenge (4 mg) in the mouth every 2 hours as needed for smoking cessation. PANTOPRAZOLE (PROTONIX) 40 MG EC TABLET Take 1 tablet (40 mg) by mouth daily. THIAMINE (,VITAMIN B-1,) 100 MG TABLET Take 100 mg by mouth daily. THIAMINE MONONITRATE (VITAMIN B1) 100 MG TABLET Take 1 tablet (100 mg) by mouth daily. ALLERGIES Bee venom, Nickel, and Tramadol FAMILY HISTORY Family History Problem Relation Name Age of Onset Depression Sister Maria De Jesus Hogan Other ([id number]) Sister Maria De Jesus Hogan agoraphobia Arthritis Sister Maria De Jesus Hogan Cancer Mother Maria De Jesus Hogan colon rectal cancer; dx after age 50 Other ([id number]) Mother Maria De Jesus Hogan alcoholism Alcohol abuse Mother Maria De Jesus Hogan Stroke Mother Maria De Jesus Hogan Other ([id number]) Father Maria De Jesus Hogan h/o rheumatic fever, cardiac arrest due to bee sting Hypertension Father Maria De Jesus Hogan SOCIAL HISTORY Social History Socioeconomic History Marital status: Tobacco Use Smoking status: Every Day Current packs/day: 2.00 Average packs/day: 2.0 packs/day for 38.8 years (77.6 ttl pk-yrs) Types: Cigarettes, Cigars Start date: 10/10/1985 Passive exposure: Past Smokeless tobacco: Never Tobacco comments: Started at 19, 2 PPD, 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 05/09/2024 Vaping Use Vaping status: Some Days Substance and Sexual Activity Alcohol use: Yes Alcohol/week: 4.0 standard drinks of alcohol Types: 4 Cans of beer per week Comment: Detox home for a week 0 drinks 02/17/23, 6 tall boys/ daily 11/28/23 Drug use: Never Sexual activity: Not Currently Partners: Female control/protection: Other Comment: live with Social Drivers of Health Financial Resource Strain: Low Risk (06/03/2024) Overall Financial Resource Strain (CARDIA) Difficulty of Paying Living Expenses: Not very hard Food Insecurity: No Food Insecurity (06/03/2024) Hunger Vital Sign Worried About Running Out of Food in the Last Year: Never true Ran Out of Food in the Last Year: Never true Transportation Needs: No Transportation Needs (06/02/2024) PRAPARE - Transportation Lack of Transportation (Medical): No Lack of Transportation (Non-Medical): No Physical Activity: Inactive (06/03/2024) Exercise Vital Sign Days of Exercise per Week: 0 days Minutes of Exercise per Session: 0 min Stress: Stress Concern Present (06/03/2024) [place] of Occupational [employer] - Occupational Stress Questionnaire Feeling of Stress : To some extent Social Connections: Socially Isolated (06/04/2024) Social Connection and Isolation Panel [NHANES] Frequency of Communication with Friends and Family: Never Frequency of Social Gatherings with Friends and Family: Never Attends Synagogue Services: Never Active Member of Clubs or Organizations: No Attends Club or Organization Meetings: Never Marital Status: Intimate Partner Violence: Not At Risk (06/03/2024) Humiliation, Afraid, Rape, and Kick questionnaire Fear of Current or Ex-Partner: No Emotionally Abused: No Physically Abused: No Sexually Abused: No Housing Stability: Low Risk (06/02/2024) Housing Stability Vital Sign Unable to Pay for Housing in the Last Year: No Number of Times Moved in the Last Year: 0 Homeless in the Last Year: No SCREENINGS [place] Coma Scale Best Eye Response: Spontaneous Best Verbal Response: Oriented Best Motor Response: Follows commands [place] Coma Scale Score: 15 PHYSICAL EXAM ED Triage Vitals [08/03/24 1656] Temp Heart Rate Resp BP 36.7 C (98.1 F) 98 20 (!) 131/98 SpO2 Temp Source Heart Rate Source Patient Position 95 % Temporal Monitor Sitting BP Location FiO2 (%) Right arm -- Physical Exam Vitals and nursing note reviewed. Constitutional: General: He is not in acute distress. Appearance: He is well-developed. Comments: Afebrile, nontoxic. No acute distress. Laying comfortably in bed with present at bedside. HENT: Head: Normocephalic and atraumatic. Eyes: Conjunctiva/sclera: Conjunctivae normal. Cardiovascular: Rate and Rhythm: Normal rate and regular rhythm. Heart sounds: No murmur heard. Comments: Radial pulses intact and symmetric bilaterally. Pulmonary: Effort: Pulmonary effort is normal. No respiratory distress. Breath sounds: Normal breath sounds. Comments: Equal bilaterally. Chest: Comments: Shingles appearing rash as marked above. Extends into the posterior ribs. Does not cross midline. No open, weeping, or bleeding areas. Bittence of secondary infection. Rashes or lesions appreciated elsewhere on the body. Abdominal: Palpations: Abdomen is soft. Tenderness: There is no abdominal tenderness. Musculoskeletal: General: No swelling. Cervical back: Neck supple. Skin: General: Skin is warm and dry. Capillary Refill: Capillary refill takes less than 2 seconds. Neurological: Mental Status: He is alert. Comments: Calm and cooperative. Answering questions and following commands appropriately. No evidence of hallucination or delusion. Speech is not pressured and not rapid. Psychiatric: Mood and Affect: Mood normal. DIAGNOSTIC RESULTS RADIOLOGY (Per Emergency Physician): Interpretation per the Radiologist below, if available at the time of this note: No orders to display LABS: Labs Reviewed CBC WITH AUTO DIFFERENTIAL - Abnormal Result Value Auto WBC 5.0 RBC 5.05 Hemoglobin 17.1 Hematocrit 48.4 MCV 95.8 MCH 33.9 MCHC 35.3 RDW 13.2 Platelets 137 (*) MPV 8.8 (*) nRBC 0.0 Neutrophils Relative 51.7 Lymphocytes Relative 33.3 Monocytes Relative 12.8 Eosinophils Relative 1.2 Basophils Relative 0.6 Immature Grans % 0.4 Neutrophils Absolute 2.6 Lymphocytes Absolute 1.7 Monocytes Absolute 0.6 Eosinophils Absolute 0.1 Basophils Absolute 0.0 Immature Grans Absolute 0.0 COMPREHENSIVE METABOLIC PANEL - Abnormal SODIUM 136 POTASSIUM 4.2 CHLORIDE 98 CARBON DIOXIDE 26 ANION GAP 12 UREA NITROGEN 5 (*) CREATININE 0.64 (*) GLUCOSE 113 (*) CALCIUM 8.4 AST (SGOT) 42 (*) ALT 32 ALKALINE PHOSPHATASE 103 ALBUMIN 3.6 BILIRUBIN, TOTAL 0.3 TOTAL PROTEIN 7.4 eGFR >90.0 ETHANOL - Abnormal ETHANOL IN SER/PLAS 375 (*) Narrative: 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 NOTE: This result is for medical treatment only. Analysis performed using non-forensic procedures. SARS-COV-2 ANTIGEN - Normal SARS-CoV-2 Antigen Negative DRUGS OF ABUSE AMPHETAMINE SCREEN Negative BARBITURATES SCREEN Negative BENZODIAZEPINE SCREEN Negative COCAINE METAB. SCREEN Negative METHADONE SCREEN Negative OPIATES SCREEN Negative OXYCODONE SCREEN Negative PHENCYCLIDINE SCREEN Negative FENTANYL SCREEN, UR QUAL Negative Narrative: The expected value for all of the drugs listed above is Negative. The following drugs or drug groups have been screened for by Immunoassay at the following thresholds: Amphetamine class (1000 ng/mL) Barbiturates (200 ng/mL) Benzodiazepines (200 ng/mL) Cocaine (300 ng/mL) Methadone (300 ng/mL) Opiates (300 ng/mL) Oxycodone (100 ng/mL) PCP (25 ng/mL) Fentanyl (1.0 ng/ml) NOTE: These results are for medical treatment only. Analysis performed using non-forensic procedures. POSITIVE results are NOT confirmed by a more specific alternative method unless requested. If confirmation is needed, request confirmation under separate order. All other labs were within normal range or not returned as of this dictation. EMERGENCY DEPARTMENT COURSE and DIFFERENTIAL DIAGNOSIS/MDM: Vitals: Vitals: 08/03/24 1656 08/03/24 1852 BP: (!) 131/98 (!) 140/90 BP Location: Right arm Right arm Patient Position: Sitting Lying Pulse: 98 84 Resp: 20 20 Temp: 36.7 C (98.1 F) TempSrc: Temporal SpO2: 95% 96% Medications Lidocaine 4 % patch 1 patch (1 patch TransDERmal Medication Applied 08/03/24 1725) gabapentin (Neurontin) capsule 600 mg (has no administration in time range) nicotine polacrilex (Nicorette) gum 2 mg (has no administration in time range) pantoprazole (ProtoNix) EC tablet 40 mg (has no administration in time range) albuterol 108 (90 Base) MCG/ACT inhaler 2 puff (has no administration in time range) aluminum & magnesium hydroxide-simethicone (Mylanta) 200-200-20 MG/5ML oral suspension 10 mL (has no administration in time range) diazePAM (Valium) tablet 10 mg (has no administration in time range) cloNIDine (Catapres) tablet 0.1 mg (has no administration in time range) dicyclomine (Bentyl) capsule 10 mg (has no administration in time range) hydrOXYzine pamoate (Vistaril) capsule 50 mg (has no administration in time range) ibuprofen tablet 400 mg (has no administration in time range) traZODone (Desyrel) tablet 50 mg (has no administration in time range) thiamine (Vitamin B1) tablet 100 mg (has no administration in time range) folic acid (Folvite) tablet 1 mg (has no administration in time range) ondansetron ODT (Zofran-ODT) disintegrating tablet 4 mg (has no administration in time range) Or ondansetron (Zofran) injection 4 mg (has no administration in time range) LORazepam (Ativan) tablet 1 mg (has no administration in time range) Or LORazepam (Ativan) injection 1 mg (has no administration in time range) Or LORazepam (Ativan) tablet 2 mg (has no administration in time range) Or LORazepam (Ativan) injection 2 mg (has no administration in time range) Or LORazepam (Ativan) tablet 3 mg (has no administration in time range) Or LORazepam (Ativan) injection 3 mg (has no administration in time range) Or LORazepam (Ativan) tablet 4 mg (has no administration in time range) Or LORazepam (Ativan) injection 4 mg (has no administration in time range) acyclovir (Zovirax) capsule 800 mg (has no administration in time range) ondansetron ODT (Zofran-ODT) disintegrating tablet 4 mg (4 mg Oral Given 08/03/241807) ED care was supervised by Dr. Demarco who independently examined and evaluated the patient. Please see their attestation note for further details. Nursing notes and medical records reviewed. In external chart review, patient has 10 admissions to our detox unit within the past year. Initial medical management includes Zofran, lidocaine patch Initial workup includes CBC, CMP, ethanol, UDS, COVID antigen, EKG Upon reassessment patient remains nontoxic and in no acute distress. Sitting comfortably in bed with with present at bedside. Lab workup results CBC without leukocytosis or acute anemia. CMP without fluid electrolyte abnormality or NIKKI. Mild bump in his AST but total bilirubin and ALT are normal. Ethanol elevated at 375. UDS negative. Covid negative. EKG: Sinus rhythm with rate of 96. Chronic conditions contributing to patients presentation include alcohol use disorder On examination, patient has what appears to be shingles. He has been having symptoms for more than 72 hours now, but we will plan to start him on acyclovir. Otherwise, he is medically cleared, and stable for admission to detox at this time. Spoke with Dr. Rodriguez via secure chat and on the telephone who accepted patient for admission. Did request to give him a dose of phenobarbital prior to transfer to [facility]. Discussed plans for admission with patient and his , they were comfortable and agreeable plans to be admitted at [facility]. Patient left [place] [facility] in stable condition with stable vitals. FINAL IMPRESSION 1. Alcohol withdrawal syndrome without complication (HCC) 2. Alcohol dependence with inpatient treatment (HCC) 3. Herpes zoster without complication DISPOSITION Admit 08/03/2024 07:06:36 PM Shared decision making preformed. (Comment: Please note this report has been produced using speech recognition software and may contain errors related to that system including errors in grammar, punctuation, and spelling, as well as words and phrases that may be inappropriate. If there are any questions or concerns please feel free to contact the dictating provider for clarification.) Debby Mckoy PA-C (electronically signed) Emergency Medicine Provider Debby Mckoy PA-C 08/03/241920 Cosigned by Matthew Demarco DO at 08/03/2024 9:11 PM EDT [facility] 08-03-2024 Physician Emergency department Note Emergency Department Encounter [facility] Patient: Maria De Jesus Hogan : 1965 Date of Evaluation: 08/03/2024 ED Supervising Physician: Matthew Demarco DO I personally evaluated Maria De Jesus Hogan and made/approved the management plan and take responsibility for the patient management. This will serve as my Supervisory note and shared attestation. I did perform a substantive portion of the visit including all aspects of the Medical Decision Making. I wore appropriate PPE for the entirety of this encounter. In brief, Maria De Jesus Hogan is a 58 y.o. that presents to the emergency department with complaints of back pain and request for detox. Patient was recently admitted to detox and discharge was clean for a few days however started drinking again. Now requesting detox again. Patient also reports that he has been having back pain for a week with a rash that popped up 3 days ago. He denies any fevers, chills, chest pain, shortness of breath, abdominal pain, nausea, vomiting Focused exam: On exam, vitals stable. Gen: Nontoxic appearing. Head: NC/AT. CV: RRR. Resp: CTA bilaterally. Abd: Abd soft and notender. Back: No midline vertebral tenderness, no stepoff, no deformity Ext: No obvious deformity or abnormalities of bilat UE and LE, Pulses 2+ bilateral UE and LE. Neuro: No focal neurologic deficit. Skin: Rash on the right side mid thoracic region consistent with shingles Brief ED course/MDM: Patient with hx of drug abuse presents to the ED with a chief complaint of requests for detox. Additional information found above and also refer to leny/resident note for further details. On exam, vitals stable. stable. Otherwise per above Additional information found above and also refer to leny/resident note for further details. (Differential diagnosis) With consideration of age, sex/gender, risk factors, to evaluate patient for high risk causes of morbidity and mortality such as, but not limited to, substance abuse vs substance abuse withdrawal vs electrolyte abnormalities vs acute infectious process vs other Today we will obtain cbc, cmp, UDS, ethanol, covid We will also provide medical/symptomatic management with symptomatic management. Diagnostic tests considered but not performed: CT imaging, no acute indications. Patient stable. No hx of trauma. Generalized complaints Independently reviewed external documents including previous detox. Per chart review, patient has been followed for or diagnosed with etoh abuse in the past. Patient's condition and/or care was impacted by these chronic conditions. Will consider these factors in evaluation and management for today's care. Discussed plan with patient who agrees with current plan. Diagnostics interpreted by me: Per below I personally discussed the patient's management with other clinicians: Per leny Patient was reassessed. Resting comfortably. No acute distress. Independently reviewed and interpreted the lab results which demonstrated the following: No significant leukocytosis, no significant anemia, covid negative. Ethanol 375, UDS positive for none Response to medical management provided in the ED: improving (Consults) Discussed case with nursing education consultant, detox. They agree with current work up and management. They will evaluate and provide further recommendations, please refer to their note for detailed explanation. Patient will be admitted to detox for further management and care. Discussed all results with patient and/or family members. They verbalize understanding. Offered admission for further management. Discussed risks, benefits and alternatives for further management in the hospital. Due to high risk of morbidity and mortality of the stated findings and results, patient will be admitted for further management and care. Patient is agreeable to the plan. Discussed patient, presentation and workup with admitting team. Admitting team is agreeable to current workup and evaluation. They will admit the patient and provide further care. Pending results to be followed by primary admitting team. Patient's condition and/or care was impacted by drug abuse Patient's condition and/or care was significantly impacted by social determinants of health including: addiction All diagnostic, treatment, and disposition decisions were made by myself in conjunction with the Resident. I also supervised laboy portions of any procedures performed by the Resident. For all further details of the patient's emergency department visit, please see their documentation. (Comment: Please note this report has been produced using speech recognition software and may contain errors related to that system including errors in grammar, punctuation, and spelling, as well as words and phrases that may be inappropriate. If there are any questions or concerns please feel free to contact the dictating provider for clarification.) Matthew Demarco DO Acute Care [facility] Matthew Demarco DO 08/05/24 0826 [employer] Work Phone: 07-16-2024 Telephone encounter Note Attempt #3 LVM for patient to call our office to schedule follow up to review CT results. [facility] [employer] 07-16-2024 Miscellaneous Notes Attempt #3 LVM for patient to call our office to schedule follow up to review CT results. LVM for patient to call our office to reschedule missed appointment with ML. Will send [employer] message as well. documented in this encounter [facility] 07-01-2024 Emergency department Note EMERGENCY DEPARTMENT ENCOUNTER Pt Name: Maria De Jesus Hogan Birthdate 1965 Date of evaluation: 07/01/2024 ED Provider: Goyo Melara MD CHIEF COMPLAINT Chief Complaint Patient presents with Toe Injury Dropped dresser on 4th toe of left foot yest morning. HISTORY OF PRESENT ILLNESS (Location/Symptom, Timing/Onset, Context/Setting, Quality, Duration, Modifying Factors, Severity) Note limiting factors. I wore appropriate PPE for the entirety of this encounter. HPI Maria De Jesus Hogan is a 58 y.o. who presents to the emergency department after dropping a dresser on his foot/toe, pain with ambulation and with putting on his shoe, also has a subcutaneous hematoma/blood blister Nursing Notes were reviewed. 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) 11/28/2023 Alcohol withdrawal syndrome without complication (HCC) Alcohol withdrawal with inpatient treatment without complication (HCC) 01/20/2024 Alcohol withdrawal, uncomplicated (HCC) 08/31/2019 Alcohol withdrawal, with unspecified complication (HCC) 10/02/2019 Alcohol withdrawal, with unspecified complication (HCC) 10/02/2019 Alcoholic intoxication without complication (CMS/HCC) (HCC) 04/10/2024 Alcoholism (CMS/HCC) (HCC) Anxiety Apical lung nodule Arthritis Maria De Jesus Cerebral artery occlusion with cerebral infarction (HCC) Cerebrovascular disease Depression GERD (gastroesophageal reflux disease) Maria De Jesus Hypertension Insomnia Lung nodule SURGICAL HISTORY Past Surgical History: Procedure Laterality Date COLONOSCOPY 06/10/2020 EGD/Dr Madison/TOMASAB CYST REMOVAL face EGD (HISTORICAL) 07/23/2022 Dr. Estrella-[facility] SMALL INTESTINE SURGERY UPPER GASTROINTESTINAL ENDOSCOPY 09/27/2021 normal WISDOM TOOTH EXTRACTION CURRENT MEDICATIONS Previous Medications ALBUTEROL 108 (90 BASE) MCG/ACT INHALER Inhale 2 puffs every 6 hours as needed for wheezing or shortness of breath. CALCIPOTRIENE (DOVONEX) 0.005 % CREAM Apply topically 2 times daily. CLOBETASOL (TEMOVATE) 0.05 % CREAM Apply topically 2 times daily. FOLIC ACID (FOLVITE) 1 MG TABLET Take 1 tablet (1 mg) by mouth daily. GABAPENTIN (NEURONTIN) 300 MG CAPSULE Take 2 capsules (600 mg) by mouth 3 times daily. MELATONIN 5 MG TABLET Take 1 tablet (5 mg) by mouth Nightly. MULTIPLE VITAMINS TABLET Take 1 tablet by mouth daily. NALTREXONE (DEPADE) 50 MG TABLET Take 1 tablet (50 mg) by mouth daily. NALTREXONE ER (VIVITROL) INJECTION Inject 4 mL (380 mg) into the buttocks every 28 (twenty-eight) days. NICOTINE POLACRILEX (NICOTINE MINI) 4 MG LOZENGE Dissolve 1 lozenge (4 mg) in the mouth every 2 hours as needed for smoking cessation. PANTOPRAZOLE (PROTONIX) 40 MG EC TABLET Take 1 tablet (40 mg) by mouth daily. THIAMINE (,VITAMIN B-1,) 100 MG TABLET Take 100 mg by mouth daily. THIAMINE MONONITRATE (VITAMIN B1) 100 MG TABLET Take 1 tablet (100 mg) by mouth daily. ALLERGIES Bee venom, Nickel, and Tramadol FAMILY HISTORY Family History Problem Relation Name Age of Onset Depression Sister Maria De Jesus Hogan Other ([id number]) Sister Maria De Jesus Hogan agoraphobia Arthritis Sister Maria De Jesus Hogan Cancer Mother Maria De Jesus Hogan colon rectal cancer; dx after age 50 Other ([id number]) Mother Maria De Jesus Hogan alcoholism Alcohol abuse Mother Maria De Jesus Hogan Stroke Mother Maria De Jesus Hogan Other ([phone]) Father Maria De Jesus Hogan h/o rheumatic fever, cardiac arrest due to bee sting Hypertension Father Maria De Jesus Hogan SOCIAL HISTORY Social History Socioeconomic History Marital status: Tobacco Use Smoking status: Every Day Current packs/day: 2.00 Average packs/day: 2.0 packs/day for 38.7 years (77.4 ttl pk-yrs) Types: Cigarettes, Cigars Start date: 10/10/1985 Passive exposure: Past Smokeless tobacco: Never Tobacco comments: Started at 19, 2 PPD, 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 05/09/2024 Vaping Use Vaping status: Some Days Substance and Sexual Activity Alcohol use: Yes Alcohol/week: 4.0 standard drinks of alcohol Types: 4 Cans of beer per week Comment: Detox home for a week 0 drinks 02/17/23, 6 tall boys/ daily 11/28/23 Drug use: Never Sexual activity: Not Currently Partners: Female control/protection: Other Comment: live with Social Drivers of Health Financial Resource Strain: Low Risk (06/03/2024) Overall Financial Resource Strain (CARDIA) Difficulty of Paying Living Expenses: Not very hard Food Insecurity: No Food Insecurity (06/03/2024) Hunger Vital Sign Worried About Running Out of Food in the Last Year: Never true Ran Out of Food in the Last Year: Never true Transportation Needs: No Transportation Needs (06/02/2024) PRAPARE - Transportation Lack of Transportation (Medical): No Lack of Transportation (Non-Medical): No Physical Activity: Inactive (06/03/2024) Exercise Vital Sign Days of Exercise per Week: 0 days Minutes of Exercise per Session: 0 min Stress: Stress Concern Present (06/03/2024) [place] [employer] - Occupational Stress Questionnaire Feeling of Stress : To some extent Social Connections: Socially Isolated (06/04/2024) Social Connection and Isolation Panel [NHANES] Frequency of Communication with Friends and Family: Never Frequency of Social Gatherings with Friends and Family: Never Attends Synagogue Services: Never Active Member of Clubs or Organizations: No Attends Club or Organization Meetings: Never Marital Status: Intimate Partner Violence: Not At Risk (06/03/2024) Humiliation, Afraid, Rape, and Kick questionnaire Fear of Current or Ex-Partner: No Emotionally Abused: No Physically Abused: No Sexually Abused: No Housing Stability: Low Risk (06/02/2024) Housing Stability Vital Sign Unable to Pay for Housing in the Last Year: No Number of Times Moved in the Last Year: 0 Homeless in the Last Year: No PHYSICAL EXAM ED Triage Vitals [07/01/241952] Temp Heart Rate Resp BP 36.7 C (98.1 F) 110 12 (!) 134/90 SpO2 Temp Source Heart Rate Source Patient Position 94 % Oral Monitor Sitting BP Location FiO2 (%) Right arm -- Physical Exam Left third toe swelling and subcutaneous hematoma with tenderness and swelling the distal metatarsal and on the toe DIAGNOSTIC RESULTS RADIOLOGY (Per Emergency Physician): Interpretation per the Radiologist below, if available at the time of this note: XR foot 1 or 2 views left Final Result 1. No acute finding. Report Dictated on Electronically Signed By: Larry Carvalho MD Electronically Signed Date/Time: 07/01/2024 8:07 PM EDT LABS: Labs Reviewed - No data to display All other labs were within normal range or not returned as of this dictation. EMERGENCY DEPARTMENT COURSE and DIFFERENTIAL DIAGNOSIS/MDM: Vitals: Vitals: 07/01/24195207/01/242032 BP: (!) 134/90 129/87 BP Location: Right arm Right arm Patient Position: Sitting Sitting Pulse: 110 91 Resp: 12 14 Temp: 36.7 C (98.1 F) TempSrc: Oral SpO2: 94% 99% Weight: 101 kg (222 lb) Height: 1.778 m (5' 10) Medications - No data to display SCREENINGS MDM elements: The patient presented with chief complaint of swelling and bruising with a subcutaneous hematoma/hemorrhagic bullous lesion, this was cleaned and drained as it was about ready to burst. Wrapped with Band-Aid, x-ray shows no fracture, discharged with follow-up. The differential diagnosis associated with this patient's presentation includes fracture versus subcutaneous hematoma. Our workup consisted of ordering/reviewing: X-ray. To aid in management, I performed an independent interpretation of Xray(s) interpreted by me shows no acute fracture. The patient will be Discharged. Patient is in agreement with this plan. PROCEDURES: Unless otherwise noted below, none Procedures CRITICAL CARE TIME None FINAL IMPRESSION 1. Subcutaneous hematoma 2. Contusion of dorsum of foot DISPOSITION Discharge 07/01/2024 08:18:05 PM PATIENT REFERRED TO: Lynda Rasheed MD [address] [place] [address] [address] [facility] [id number] As needed DISCHARGE MEDICATIONS: New Prescriptions No medications on file (Comment: Please note this report has been produced using speech recognition software and may contain errors related to that system including errors in grammar, punctuation, and spelling, as well as words and phrases that may be inappropriate. If there are any questions or concerns please feel free to contact the dictating provider for clarification.) Goyo Melara MD (electronically signed) Emergency Medicine Provider Goyo Melara MD 07/01/242048 documented in this encounter [facility] 07-01-2024 Physician Emergency department Note EMERGENCY DEPARTMENT ENCOUNTER Pt Name: Maria De Jesus Hogan Birthdate 1965 Date of evaluation: 07/01/2024 ED Provider: Goyo Melara MD CHIEF COMPLAINT Chief Complaint Patient presents with Toe Injury Dropped dresser on 4th toe of left foot yest morning. HISTORY OF PRESENT ILLNESS (Location/Symptom, Timing/Onset, Context/Setting, Quality, Duration, Modifying Factors, Severity) Note limiting factors. I wore appropriate PPE for the entirety of this encounter. HPI Maria De Jesus Hogan is a 58 y.o. who presents to the emergency department after dropping a dresser on his foot/toe, pain with ambulation and with putting on his shoe, also has a subcutaneous hematoma/blood blister Nursing Notes were reviewed. 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) 11/28/2023 Alcohol withdrawal syndrome without complication (HCC) Alcohol withdrawal with inpatient treatment without complication (HCC) 01/20/2024 Alcohol withdrawal, uncomplicated (HCC) 08/31/2019 Alcohol withdrawal, with unspecified complication (HCC) 10/02/2019 Alcohol withdrawal, with unspecified complication (HCC) 10/02/2019 Alcoholic intoxication without complication (CMS/HCC) (HCC) 04/10/2024 Alcoholism (CMS/HCC) (HCC) Anxiety Apical lung nodule Arthritis Maria De Jesus Cerebral artery occlusion with cerebral infarction (HCC) Cerebrovascular disease Depression GERD (gastroesophageal reflux disease) Maria De Jesus Hypertension Insomnia Lung nodule SURGICAL HISTORY Past Surgical History: Procedure Laterality Date COLONOSCOPY 06/10/2020 EGD/Dr Madison/AMANDA CYST REMOVAL face EGD (HISTORICAL) 07/23/2022 Dr. Estrella-[facility] SMALL INTESTINE SURGERY UPPER GASTROINTESTINAL ENDOSCOPY 09/27/2021 normal WISDOM TOOTH EXTRACTION CURRENT MEDICATIONS Previous Medications ALBUTEROL 108 (90 BASE) MCG/ACT INHALER Inhale 2 puffs every 6 hours as needed for wheezing or shortness of breath. CALCIPOTRIENE (DOVONEX) 0.005 % CREAM Apply topically 2 times daily. CLOBETASOL (TEMOVATE) 0.05 % CREAM Apply topically 2 times daily. FOLIC ACID (FOLVITE) 1 MG TABLET Take 1 tablet (1 mg) by mouth daily. GABAPENTIN (NEURONTIN) 300 MG CAPSULE Take 2 capsules (600 mg) by mouth 3 times daily. MELATONIN 5 MG TABLET Take 1 tablet (5 mg) by mouth Nightly. MULTIPLE VITAMINS TABLET Take 1 tablet by mouth daily. NALTREXONE (DEPADE) 50 MG TABLET Take 1 tablet (50 mg) by mouth daily. NALTREXONE ER (VIVITROL) INJECTION Inject 4 mL (380 mg) into the buttocks every 28 (twenty-eight) days. NICOTINE POLACRILEX (NICOTINE MINI) 4 MG LOZENGE Dissolve 1 lozenge (4 mg) in the mouth every 2 hours as needed for smoking cessation. PANTOPRAZOLE (PROTONIX) 40 MG EC TABLET Take 1 tablet (40 mg) by mouth daily. THIAMINE (,VITAMIN B-1,) 100 MG TABLET Take 100 mg by mouth daily. THIAMINE MONONITRATE (VITAMIN B1) 100 MG TABLET Take 1 tablet (100 mg) by mouth daily. ALLERGIES Bee venom, Nickel, and Tramadol FAMILY HISTORY Family History Problem Relation Name Age of Onset Depression Sister Maria De Jesus Hogan Other ([id number]) Sister Maria De Jesus Hogan agoraphobia Arthritis Sister Maria De Jesus Hogan Cancer Mother Maria De Jesus Hogan colon rectal cancer; dx after age 50 Other ([id number]) Mother Maria De Jesus Hogan alcoholism Alcohol abuse Mother Maria De Jesus Hogan Stroke Mother Maria De Jesus Hogan Other ([phone]) Father Maria De Jesus Hogan h/o rheumatic fever, cardiac arrest due to bee sting Hypertension Father Maria De Jesus Hogan SOCIAL HISTORY Social History Socioeconomic History Marital status: Tobacco Use Smoking status: Every Day Current packs/day: 2.00 Average packs/day: 2.0 packs/day for 38.7 years (77.4 ttl pk-yrs) Types: Cigarettes, Cigars Start date: 10/10/1985 Passive exposure: Past Smokeless tobacco: Never Tobacco comments: Started at 19, 2 PPD, 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 05/09/2024 Vaping Use Vaping status: Some Days Substance and Sexual Activity Alcohol use: Yes Alcohol/week: 4.0 standard drinks of alcohol Types: 4 Cans of beer per week Comment: Detox home for a week 0 drinks 02/17/23, 6 tall boys/ daily 11/28/23 Drug use: Never Sexual activity: Not Currently Partners: Female control/protection: Other Comment: live with Social Drivers of Health Financial Resource Strain: Low Risk (06/03/2024) Overall Financial Resource Strain (CARDIA) Difficulty of Paying Living Expenses: Not very hard Food Insecurity: No Food Insecurity (06/03/2024) Hunger Vital Sign Worried About Running Out of Food in the Last Year: Never true Ran Out of Food in the Last Year: Never true Transportation Needs: No Transportation Needs (06/02/2024) PRAPARE - Transportation Lack of Transportation (Medical): No Lack of Transportation (Non-Medical): No Physical Activity: Inactive (06/03/2024) Exercise Vital Sign Days of Exercise per Week: 0 days Minutes of Exercise per Session: 0 min Stress: Stress Concern Present (06/03/2024) [place] [employer] - Occupational Stress Questionnaire Feeling of Stress : To some extent Social Connections: Socially Isolated (06/04/2024) Social Connection and Isolation Panel [NHANES] Frequency of Communication with Friends and Family: Never Frequency of Social Gatherings with Friends and Family: Never Attends Synagogue Services: Never Active Member of Clubs or Organizations: No Attends Club or Organization Meetings: Never Marital Status: Intimate Partner Violence: Not At Risk (06/03/2024) Humiliation, Afraid, Rape, and Kick questionnaire Fear of Current or Ex-Partner: No Emotionally Abused: No Physically Abused: No Sexually Abused: No Housing Stability: Low Risk (06/02/2024) Housing Stability Vital Sign Unable to Pay for Housing in the Last Year: No Number of Times Moved in the Last Year: 0 Homeless in the Last Year: No PHYSICAL EXAM ED Triage Vitals [07/01/241952] Temp Heart Rate Resp BP 36.7 C (98.1 F) 110 12 (!) 134/90 SpO2 Temp Source Heart Rate Source Patient Position 94 % Oral Monitor Sitting BP Location FiO2 (%) Right arm -- Physical Exam Left third toe swelling and subcutaneous hematoma with tenderness and swelling the distal metatarsal and on the toe DIAGNOSTIC RESULTS RADIOLOGY (Per Emergency Physician): Interpretation per the Radiologist below, if available at the time of this note: XR foot 1 or 2 views left Final Result 1. No acute finding. Report Dictated on Electronically Signed By: Larry Carvalho MD Electronically Signed Date/Time: 07/01/2024 8:07 PM EDT LABS: Labs Reviewed - No data to display All other labs were within normal range or not returned as of this dictation. EMERGENCY DEPARTMENT COURSE and DIFFERENTIAL DIAGNOSIS/MDM: Vitals: Vitals: 07/01/24195207/01/242032 BP: (!) 134/90 129/87 BP Location: Right arm Right arm Patient Position: Sitting Sitting Pulse: 110 91 Resp: 12 14 Temp: 36.7 C (98.1 F) TempSrc: Oral SpO2: 94% 99% Weight: 101 kg (222 lb) Height: 1.778 m (5' 10) Medications - No data to display SCREENINGS MDM elements: The patient presented with chief complaint of swelling and bruising with a subcutaneous hematoma/hemorrhagic bullous lesion, this was cleaned and drained as it was about ready to burst. Wrapped with Band-Aid, x-ray shows no fracture, discharged with follow-up. The differential diagnosis associated with this patient's presentation includes fracture versus subcutaneous hematoma. Our workup consisted of ordering/reviewing: X-ray. To aid in management, I performed an independent interpretation of Xray(s) interpreted by me shows no acute fracture. The patient will be Discharged. Patient is in agreement with this plan. PROCEDURES: Unless otherwise noted below, none Procedures CRITICAL CARE TIME None FINAL IMPRESSION 1. Subcutaneous hematoma 2. Contusion of dorsum of foot DISPOSITION Discharge 07/01/2024 08:18:05 PM PATIENT REFERRED TO: Lynda Rasheed MD [address] [place] [address] [address] [facility] [address] As needed DISCHARGE MEDICATIONS: New Prescriptions No medications on file (Comment: Please note this report has been produced using speech recognition software and may contain errors related to that system including errors in grammar, punctuation, and spelling, as well as words and phrases that may be inappropriate. If there are any questions or concerns please feel free to contact the dictating provider for clarification.) Goyo Melara MD (electronically signed) Emergency Medicine Provider Goyo Melara MD 07/01/242048 [facility] 06-25-2024 Telephone encounter Note LVM for patient to call our office to reschedule missed appointment with ML. Will send LaunchBitt message as well. T [facility] 06-23-2024 Telephone encounter Note Recent Visits Date Type Provider Dept 06/16/24 Office Visit Lynda Rasheed MD [facility] 05/20/24 Office Visit Lynda Rasheed MD [facility] 02/05/24 Office Visit Lynda Rasheed MD [facility] Showing recent visits within past 365 days and meeting all other requirements Future Appointments No visits were found meeting these conditions. Showing future appointments within next 90 days and meeting all other requirements Requested Prescriptions Pending Prescriptions Disp Refills melatonin 5 MG tablet 90 tablet 1 Sig: Take 1 tablet (5 mg) by mouth Nightly. Provider: Grayson Kessler PA-C Verified pharmacy: yes Verified day(s) supplied: yes Verified refill(s) needed (previous prescription showing no refills in chart): Yes Have you received any controlled medications from any other provider? N/A Overdue for visit: No If yes - patient scheduled? Yes Most recent labs completed in chart? N/A None T [facility] 06-23-2024 Miscellaneous Notes Recent Visits Date Type Provider Dept 06/16/24 Office Visit Lynda Rasheed MD [facility] 05/20/24 Office Visit Lynda Rasheed MD [facility] 02/05/24 Office Visit Lynda Rasheed MD [facility] Showing recent visits within past 365 days and meeting all other requirements Future Appointments No visits were found meeting these conditions. Showing future appointments within next 90 days and meeting all other requirements Requested Prescriptions Pending Prescriptions Disp Refills melatonin 5 MG tablet 90 tablet 1 Sig: Take 1 tablet (5 mg) by mouth Nightly. Provider: Grayson Kessler PA-C Verified pharmacy: yes Verified day(s) supplied: yes Verified refill(s) needed (previous prescription showing no refills in chart): Yes Have you received any controlled medications from any other provider? N/A Overdue for visit: No If yes - patient scheduled? Yes Most recent labs completed in chart? N/A None documented in this encounter [facility] 06-23-2024 Telephone encounter Note Recent Visits Date Type Provider Dept 06/16/24 Office Visit Lynda Rasheed MD [facility] 05/20/24 Office Visit Lynda Rasheed MD [facility] 02/05/24 Office Visit Lynda Rasheed MD [facility] Showing recent visits within past 365 days and meeting all other requirements Future Appointments No visits were found meeting these conditions. Showing future appointments within next 90 days and meeting all other requirements Requested Prescriptions Pending Prescriptions Disp Refills nicotine polacrilex (Nicotine Mini) 4 MG lozenge 100 lozenge 3 Sig: Dissolve 1 lozenge (4 mg) in the mouth every 2 hours as needed for smoking cessation. Provider: Lynda Rasheed MD Verified pharmacy: yes Verified day(s) supplied: yes Verified refill(s) needed (previous prescription showing no refills in chart): Yes Have you received any controlled medications from any other provider? N/A Overdue for visit: No If yes - patient scheduled? Yes Most recent labs completed in chart? N/A None [facility] 06-23-2024 Miscellaneous Notes Recent Visits Date Type Provider Dept 06/16/24 Office Visit Lynda Rasheed MD [facility] 05/20/24 Office Visit Lynda Rasheed MD [facility] 02/05/24 Office Visit Lynda Rasheed MD [facility] Showing recent visits within past 365 days and meeting all other requirements Future Appointments No visits were found meeting these conditions. Showing future appointments within next 90 days and meeting all other requirements Requested Prescriptions Pending Prescriptions Disp Refills nicotine polacrilex (Nicotine Mini) 4 MG lozenge 100 lozenge 3 Sig: Dissolve 1 lozenge (4 mg) in the mouth every 2 hours as needed for smoking cessation. Provider: Lynda Rasheed MD Verified pharmacy: yes Verified day(s) supplied: yes Verified refill(s) needed (previous prescription showing no refills in chart): Yes Have you received any controlled medications from any other provider? N/A Overdue for visit: No If yes - patient scheduled? Yes Most recent labs completed in chart? N/A None documented in this encounter [facility] 06-16-2024 History of Present illness Narrative Images from the original note were not included. [facility] - [address] [facility] [address] Dept: [phone] Dept Loc: [phone] Reason for Visit: Follow-up Assessment and Plan 1. Elevated LFTs bated liver enzymes stop drinking 2. Lombardo esophagus with esophagitis EGD done in 2021 referral done to see if he needs a repeat EGD due to his Lombardo's also will continue Protonix 3. Elevated liver enzymes day away from alcohol Tylenol continue to monitor liver enzymes 4. Cigarette smoker stop smoking reviewed CT lung screening patient also has pulmonology appointment 5. Severe alcohol use disorder (HCC) follow-up with investigation specialist in #6 lumbar back pain. Continue gabapentin x-ray recommended. Medrol Dosepak given. current treatment plan is effective, no change in therapy, orders and follow up as documented in EMR, lab results reviewed with patient, repeat labs ordered prior to next appointment, reviewed compliance with lifestyle measures, reviewed diet, exercise and weight control, reviewed medications and side effects in detail Return visit in 3 months. Nafisa JENSEN is a 58-year-old gentleman who has been in the hospital on some occasions for alcohol abuse. He has tried the investigation specialist outpatient program. He states and currently he is not drinking. He does have a history of Lombardo's esophagitis his last EGD was in 2021 discussed with patient that I recommend repeating it he is never had a colonoscopy he does not have any blood in his stool I also recommend getting this done as well. He does have a history of the Lombardo's so he has been on the Protonix. He also has a history of elevated liver enzymes most likely caused by his drinking he and I had a long discussion about stop drinking in addition to that he had a CT lung screening recently done he sees pulmonology. Being a lot of pain lower back has been back to work. Does have a history of neuropathy is currently on gabapentin Review of Systems Constitutional: Negative. Negative for activity change, appetite change and fever. HENT: Negative. Negative for congestion. Eyes: Negative. Negative for discharge. Respiratory: Negative. Negative for chest tightness. Cardiovascular: Negative. Gastrointestinal: Negative. Endocrine: Negative. Negative for cold intolerance. Genitourinary: Negative for difficulty urinating. Musculoskeletal: Negative. Neurological: Positive for numbness. Negative for dizziness, facial asymmetry and headaches. Hematological: Negative. Allergies Allergen Reactions Bee Venom Swelling Nickel Rash Tramadol Nausea And Vomiting Other reaction(s): AOF Current Outpatient Medications Medication Sig Dispense Refill albuterol 108 (90 Base) MCG/ACT inhaler Inhale 2 puffs every 6 hours as needed for wheezing or shortness of breath. 3 each 1 calcipotriene (Dovonex) 0.005 % cream Apply topically 2 times daily. 60 g 3 clobetasol (Temovate) 0.05 % cream Apply topically 2 times daily. 60 g 3 folic acid (Folvite) 1 MG tablet Take 1 tablet (1 mg) by mouth daily. 30 tablet 11 gabapentin (Neurontin) 300 MG capsule Take 2 capsules (600 mg) by mouth 3 times daily. 180 capsule 3 melatonin 5 MG tablet Take 1 tablet (5 mg) by mouth Nightly. 90 tablet 1 Multiple Vitamins tablet Take 1 tablet by mouth daily. 90 tablet 1 naltrexone (Depade) 50 MG tablet Take 1 tablet (50 mg) by mouth daily. 30 tablet 2 naltrexone ER (Vivitrol) injection Inject 4 mL (380 mg) into the buttocks every 28 (twenty-eight) days. pantoprazole (ProtoNix) 40 MG EC tablet Take 1 tablet (40 mg) by mouth daily. 90 tablet 1 thiamine (,Vitamin B-1,) 100 MG tablet Take 100 mg by mouth daily. Thiamine Mononitrate (Vitamin B1) 100 MG tablet Take 1 tablet (100 mg) by mouth daily. 90 tablet 1 nicotine polacrilex (Nicotine Mini) 4 MG lozenge Dissolve 1 lozenge (4 mg) in the mouth every 2 hours as needed for smoking cessation. 100 lozenge 3 No current facility-administered medications for this visit. 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 Atelectasis Hyponatremia Pneumatosis coli UGIB (upper gastrointestinal bleed) Hypochloremia Transaminitis Hematemesis with nausea Weakness of extremity Conversion reaction BPH (benign prostatic hyperplasia) Tachycardia Alcohol withdrawal syndrome with complication, with unspecified complication (HCC) Alcoholic peripheral neuropathy (HCC) Alcohol withdrawal with inpatient treatment, uncomplicated (HCC) Past Medical History: Diagnosis Date Alcohol abuse Alcohol dependence with withdrawal (HCC) 08/31/2019 Alcohol intoxication without use disorder, uncomplicated (HCC) 10/01/2019 Alcohol use disorder 09/10/2022 Alcohol withdrawal syndrome with complication (HCC) 09/27/2021 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) 11/28/2023 Alcohol withdrawal syndrome without complication (HCC) Alcohol withdrawal with inpatient treatment without complication (HCC) 01/20/2024 Alcohol withdrawal, uncomplicated (HCC) 08/31/2019 Alcohol withdrawal, with unspecified complication (HCC) 10/02/2019 Alcohol withdrawal, with unspecified complication (HCC) 10/02/2019 Alcoholic intoxication without complication (CMS/HCC) (HCC) 04/10/2024 Alcoholism (CMS/HCC) (HCC) Anxiety Apical lung nodule Arthritis Maria De Jesus Cerebral artery occlusion with cerebral infarction (HCC) Cerebrovascular disease Depression GERD (gastroesophageal reflux disease) Maria De Jesus Hypertension Insomnia Lung nodule Social History Tobacco Use Smoking status: Every Day Current packs/day: 2.00 Average packs/day: 2.0 packs/day for 38.7 years (77.4 ttl pk-yrs) Types: Cigarettes, Cigars Start date: 10/10/1985 Passive exposure: Past Smokeless tobacco: Never Tobacco comments: Started at 19, 2 P[employer], 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 05/09/2024 Substance Use Topics Alcohol use: Yes Alcohol/week: 4.0 standard drinks of alcohol Types: 4 Cans of beer per week Comment: Detox home for a week 0 drinks 02/17/23, 6 tall boys/ daily 11/28/23 Past Surgical History: Procedure Laterality Date COLONOSCOPY 06/10/2020 EGD/Dr Madison/Janis CYST REMOVAL face EGD (HISTORICAL) 07/23/2022 Dr. Estrella[facility] SMALL INTESTINE SURGERY UPPER GASTROINTESTINAL ENDOSCOPY 09/27/2021 normal WISDOM TOOTH EXTRACTION Family History Problem Relation Name Age of Onset Depression Sister Maria De Jesus Hogan Other ([id number]) Sister Maria De Jesus Hogan agoraphobia Arthritis Sister Maria De Jesus Hogan Cancer Mother Maria De Jesus Hogan colon rectal cancer; dx after age 50 Other ([id number]) Mother Maria De Jesus Hogan alcoholism Alcohol abuse Mother Maria De Jesus Hogan Stroke Mother Maria De Jesus Hogan Other ([id number]) Father Maria De Jesus Hogan h/o rheumatic fever, cardiac arrest due to bee sting Hypertension Father Maria De Jesus Hogan Health Maintenance Topic Date Due HIV Screening Never done Colorectal Cancer Screening Never done MMR Vaccines (1 of 1 - Standard series) Never done DTaP/Tdap/Td Vaccines (1 - Tdap) Never done Hepatitis B Vaccines (1 of 3 - 19+ 3-dose series) Never done Zoster Vaccines (1 of 2) Never done Pneumococcal Vaccine: 50+ Years (2 of 2 - PCV) 09/26/2023 Diabetes Screening 11/02/2023 Influenza Vaccine (1) 12/01/2023 COVID-19 Vaccine (4 - season) 2023 Depression Monitoring 12/05/2024 Lung Cancer Screening 06/11/2025 Lipid Panel 07/10/2027 RSV Immunization for Adults (1 - 1-dose 75+ series) 11/14/2042 Hepatitis C Screening Completed RSV Immunization under 20 Months Aged Out HIB Vaccines Aged Out IPV Vaccines Aged Out Hepatitis A Vaccines Aged Out Meningococcal Vaccine Aged Out Rotavirus Vaccines Aged Out HPV Vaccines Aged Out Objective BP 106/66 Pulse 108 Temp 36.3 C (97.3 F) Ht 5' 10 (1.778 m) Wt 221 lb (100 kg) SpO2 94% BMI 31.71 kg/m Physical Exam Data Reviewed and Summarized Labs: Lab Results Component Value Date WBC 6.7 06/02/2024 HGB 15.8 06/02/2024 HCT 45.6 06/02/2024 PLT 184 06/02/2024 TSH 2.092 07/21/2022 PSA 1.035 07/09/2022 INR 0.9 07/21/2022 Lab Results Component Value Date NA 134 (L) 06/02/2024 K 4.2 06/02/2024 CL 97 (L) 06/02/2024 CO2 23 06/02/2024 BUN 3 (L) 06/02/2024 CREATININE 0.59 (L) 06/02/2024 GLUCOSE 85 06/02/2024 CALCIUM 8.9 06/02/2024 PROT 7.2 06/02/2024 BILITOT 0.4 06/02/2024 ALKPHOS 110 06/02/2024 AST 49 (H) 06/02/2024 ALT 44 (H) 06/02/2024 @GLUCOSELAB@ Lab Results Component Value Date CHOL 242 (H) 07/09/2022 CHOL 285 (A) 09/01/2020 CHOL 262 (A) 02/14/2019 Lab Results Component Value Date TRIG 126 07/09/2022 TRIG 120 09/01/2020 TRIG 162 (A) 02/14/2019 Lab Results Component Value Date HDL 70 (H) 07/09/2022 HDL 68 (H) 09/01/2020 HDL 43 02/14/2019 Lab Results Component Value Date LDLCALC 147 (H) 07/09/2022 No results found for: VLDL Lab Results Component Value Date CHOLHDLRATIO 3 07/09/2022 CHOLHDLRATIO 4 09/01/2020 CHOLHDLRATIO 6 02/14/2019 Imaging/Testing: CT chest wo IV contrast Narrative: Patient Name: MARIA DE JESUS HOGAN [facility] 1965 [id number] Exam Date/Time: 06/11/2024 16:05 Procedure: CT CHEST WO IV CONTRAST Ordering Provider: DARDEN BRIAN Reason For Exam: Lung nodule, > 8mm EXAMINATION: CT of the chest without intravenous contrast. EXAM DATE & TIME: 06/11/2024 4:05 PM EDT INDICATION: Lung nodule, > 8mm ADDITIONAL INFORMATION: 58-year-old male with history of pulmonary nodules presents for follow-up COMPARISON: CT chest dated 02/11/2024 LIMITATIONS: Evaluation of the vasculature and solid viscera is limited due to the lack of intravenous contrast. TECHNIQUE: Contiguous multiplanar 3 mm images were obtained through the chest without contrast. Images were reformatted in coronal and sagittal projections using the raw CT data and were interpreted in conjunction with the axial images to render the findings listed below. Dose reduction was employed with automated exposure control. FINDINGS: Cardiovascular: The heart is within the normal limits of size. Atherosclerotic vascular calcifications are present in the aortic arch and coronary arteries. Mediastinum/pericardium: Unremarkable. Thyroid: Unremarkable. Tracheobronchial tree: Widely patent. Pleura: No pleural effusion or pneumothorax. Lungs: Mild emphysematous changes are seen throughout the lungs. Scarring/atelectasis is also seen at the lung bases, most notably involving the anterior right middle lobe. No focal consolidation. Nodules: Previously seen 2 mm anterior left upper lobe nodule now contains dense calcifications, and likely relates to a granuloma (for example series 6, image 110). Previously seen 6 mm perifissural left lower lobe nodule is unchanged, and likely relates to an intrapulmonary lymph node (series 6, image 114). Previously seen triangular density involving the medial right middle lobe measures 8 x 7 mm on series 6, image 125. This is favored to represent a region of scarring given its craniocaudal extension beyond this focus. No new suspicious pulmonary nodules. Lymph nodes: No emerging adenopathy. Included images of the upper abdomen: There is diffuse fatty metamorphosis of the liver. Visualized musculoskeletal structures: No acute osseous abnormality is demonstrated. Multilevel spondylosis is seen. Impression: 1. Previously seen anterior left upper lobe nodule now contains calcifications and likely relates to a densely calcified granuloma. 2. Probable intrapulmonary lymph node is stable involving the left perifissural region. 3. Medial right middle lobe densities are stable and are favored to represent scarring/atelectasis. 4. Otherwise, no acute process. Numerous chronic findings as above. Report Dictated on Electronically Signed By: Zuly De La O MD Electronically Signed Date/Time: 06/12/2024 3:07 PM EDT Lynda Rasheed MD documented in this encounter [facility] 06-08-2024 Telephone encounter Note We have been unable to reach your patient to schedule their testing. Test Name: US abdomen complete 1st attempt, via [email or web address] message, 05/23/24 JS 2nd attempt called LVM. TE to office. sent [employer] message. 06/08/24 LR [facility] 06-08-2024 Miscellaneous Notes We have been unable to reach your patient to schedule their testing. Test Name: US abdomen complete 1st attempt, via LaunchBitt message, 05/23/24 JS 2nd attempt called LVM. TE to office. sent [employer] message. 06/08/24 LR documented in this encounter [facility] 06-05-2024 Telephone encounter Note LVM [facility] 06-05-2024 Miscellaneous Notes LVM LVM for pt to call office to reschedule CT scan and follow up kavon Lara. documented in this encounter [facility] 06-04-2024 Note Formatting of this n ote might be different from the original. Social work consult placed for patient. Notified areas of S NAHOMY noted at current time. Social work consult is cleared. [facility] 06-04-2024 Note Formatting of this n ote might be different from the original. Social work consult placed for patient. Notified areas of S NAHOMY noted at current time. Social work consult is cleared. [facility] 06-04-2024 Miscellaneous Notes Social work consult placed for patient. Notified areas of S NAHOMY noted at current time. Social work consult is cleared. Department: [facility] Group Topic: Recreation Therapy Group Date: 06/03/2024 Start Time: 1030 End Time: 1103 Facilitators: Aurora Camarena Number of Participants: 9 Group Name: Recreation Therapy Treatment Modality: Recreation Therapy Purpose: enhance coping skills Summary: Chat Pack - To allow Patients the opportunity to explore self awareness and socialization through leisure engagement. Discussion to focus on their experience of participation, as well as, the process of reconnection to leisure interests. Name: Maria De Jesus Hogan Date of : 1965 MR: [id number] Appearance: Good eye contact Affect: Appropriate Behavior: Pleasant Alertness: Alert Speech: Appropriate Level/Quality of Participation: minimal Interactions with others: na Interventions utilized were Building rapport and engagement Patient's Response to Intervention: Patient engaged minimally in intervention by sharing their thoughts and experiences when responding to questions. Patient was pulled for much of the group causing minimal participation. Patient supported in utilizing recreation to support coping. Continue to encourage patient participation in groups. 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 Atelectasis Hyponatremia Pneumatosis coli UGIB (upper gastrointestinal bleed) Hypochloremia Transaminitis Hematemesis with nausea Weakness of extremity Conversion reaction BPH (benign prostatic hyperplasia) Tachycardia Alcohol withdrawal syndrome with complication, with unspecified complication (HCC) Alcoholic peripheral neuropathy (HCC) Alcohol withdrawal with inpatient treatment, uncomplicated (HCC) Behavioral Health Psycho-Social Assessment (Social Work) Date: 06/03/2024 Patient Name: Maria De Jesus Hogan : 1965 Identifying Information: Patient is a 58-year-old male mated to [facility] for detox and alcohol. Patient is well-known to diction medicine team as he previously on 05/07/2024. Patient was scheduled with follow-up for IOP and MAT services however patient did not comply with treatment recommendations and did not make his scheduled appointments. Patient was then seen in the ED on 05/25/2024 for head injury secondary to alcohol use disorder. Presenting Problem: Patient presented to the ED on 06/02/2024 requesting detox of alcohol. Patient reports last use was just prior to walking into the emergency room. Went to detox on May 07 through the and was sober for 2 weeks. Reports he started drinking 3, 24 ounce beers daily. Patient reports at peak was drinking 9, 24 ounce beers daily. 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 Psychiatric History: Patient has mental health diagnosis depression anxiety. Patient denies being on any medication for mental health needs. Patient has previous engagement with outpatient mental health providers but denies any current treatment. Patient has history of noncompliance with treatment medications Patient has history of psychiatric admission. Reports admissions were due to suicidal ideation while intoxicated. Denies history of recent or past history suicide attempts. Patient denies current SI/HI/AVH. Patient does have an extensive history of passive SI secondary to intoxication. Patient denies plan, intent, or method but reports more increased feelings of depression and sadness. Patient denies recent or past history of SIB. Substance Abuse/Use: Patient reports that he is currently drinking upwards of 9, 24 ounce Natty Kelli beers daily. Reports most recently limiting himself 23, 24 ounce beers daily. Patient reports his last drink was 06/02/2024.. Patient labs are positive for alcohol (0.110) and barbitutaes. Patient first drank alcohol when he was 15/16 years old. Patient reports that his use was regular in his 20s, and problematic 12 years ago. He cannot identify a trigger to his problematic use, other than, I like beer . He drinks the point of intoxication, blackouts, and vomiting. He denies history of withdrawal seizure, alcohol overdoses, or DTs. Patient does have extensive history of falls while intoxicated. Patient denies any history of MAT engagement. Patient reports his longest period of sobriety was 6 months. Patient most recently only being able to maintain sobriety for 2 weeks. Patient has previous history of detox occurring on 05/07/2024, 01/23/2024, 07/27/2023, 07/08/2023, 02/08/2023, 05/20/2023 (medical), 10/25/2021, 02/15/2021 (left AMA), 06/09/20, 10/01/19, 08/31/19 (left AMA), 2016 (left AMA), and 2014 (left AMA). He denies history of residential treatment Patient reports previous history of engagement with AA as well as IOP. Patient most recently was assessed for IOP but did not complete any programming and was dismissed. Medical/Self-care Issues: Patient has medical issues such as COPD, Lombardo's esophagus, macrocytosis, and HTN. Patient has ongoing struggles with self-care secondary to substance use disorder. Patient is increased in both frequency and tolerance over time. Patient also report struggling to recover from the effects of his substance use. Patient reports experiencing poor nutrition and sleep secondary to his substance use. Legal/Trauma/ History: Patient denies any current legal issues. Patient reports past legal history of child support violations. Patient denies any history of childhood abuse. Patient does report however his father when he was 11 years old which was a traumatic incident to him. Patient denies any history of trauma abuse as an adult. Patient denies any history [place] or status. Family Constellation/Childhood History: Patient reports that he is currently to his living in [facility]. Patient reports that he has 3 biological children and 4 stepchildren. Patient reports that his father in his 11 years old. Patient did not report his mother is still alive currently. Patient was born and raised in [place], [place] by his mother and father. He reports that his father when he was 11 years old, and this was traumatic for him. Patient reports that he was raised primarily by his mother for the remainder of his childhood. He denies childhood abuse. Education/Work: Patient reports that he graduated high school. 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 Patient denies SSI/SSD. Cultural/Spirituality/Leisure: Patient denies any cultural needs or concerns at the current time. Patient denies identify any yarsanism preference. It is unknown if patient is attending services anywhere currently. Patient reports he used to enjoy leisure activities such as golfing but has been unable to do so due to his ongoing substance use disorder. Support Systems/Collateral Information: Patient reports that his is his primary social. Patient reports that she is sober and supportive of his recovery needs and efforts. Patient reports that his is aware that he is admitted to the hospital. C-SSRS Actual Attempt (Past 3 Months): No (Patient has history of psychiatric admission. Reports admissions were due to suicidal ideation while intoxicated. Denies history of recent history suicide attempts) Actual Attempt (Lifetime): No (Patient denies past history of suicide attempts) Interrupted Attempts (Past 3 Months): No (Patient denies) Interrupted Attempts (Lifetime): No (Patient denies) Aborted or Self-Interrupted Attempt (Past 3 Months): No (Patient denies) Aborted or Self-Interrupted Attempt (Lifetime): No (Patient denies) Preparatory Acts or Behavior (Past 3 Months): No (Patient denies) Preparatory Acts or Behavior (Lifetime): No (Patient denies) Has subject engaged in non-suicidal self-injurious behavior? (Past 3 Months): No (Patient denies any recent history of SIB) Has subject engaged in non-suicidal self-injurious behavior? (Lifetime): No (Patient denies any past history of SIB) Suicidal Ideation: (Patient denies current SI/HI/AVH. Patient does have an extensive history of passive SI secondary to intoxication. Patient denies plan, intent, or method but reports more increased feelings of depression and sadness.) Activating Events (Recent): Recent loss(es) or other significant negative event(s) (legal, financial, relationship, etc.) Describe:: Ongoing struggles with alcohol use Treatment History: Previous psychiatric diagnoses and treatments, Not receiving treatment, Non-compliant with treatment (Patient has mental health diagnosis depression anxiety. Patient denies being on any medication for mental health needs. Patient has previous engagement with outpatient mental health providers but denies any current treatment.) Clinical Status (Recent): Substance abuse or dependence, Hopelessness, Agitation or severe anxiety, Major depressive episode, Perceived burden on family or others, Highly impulsive behavior (Risk factors) Protective Factors (Recent): Identifies reasons for living, Responsibility to family or others and/or living with family, Supportive social network or family (Protective factors) Describe any suicidal, self-injurious or aggressive behavior (include dates): Patient has history of psychiatric admission. Reports admissions were due to suicidal ideation while intoxicated. Denies history of recent or past history suicide attempts. Patient denies current SI/HI/AVH. Patient does have an extensive history of passive SI secondary to intoxication. Patient denies plan, intent, or method but reports more increased feelings of depression and sadness. Patient denies recent or past history of SIB. Patient has mental health diagnosis depression anxiety. Patient denies being on any medication for mental health needs. Patient has previous engagement with outpatient mental health providers but denies any current treatment. Patient has history of noncompliance with treatment medications Plan: Patient was provided information for IOP and MAT services if he would like to schedule any aftercare plans postdischarge from the hospital. Patient encouraged to take active process in his own recovery needs and efforts. Patient has been scheduled multiple appointments and no showed all appointments so patient is encouraged to be active in his own recovery plan at current time. Patient encouraged to engage in all activities that are offered to them while they are on the unit. Patient report needing additional current time. Patient encouraged to seek out ELDER COUNSELOR unit staff should they identify any additional needs or concerns. Comment: Please note this report has been produced using speech recognition software and may contain errors related to that system including errors in grammar, punctuation, and spelling, as well as words and phrases that may be inappropriate. If there are any questions or concerns please feel free to contact the dictating provider for clarification. documented in this encounter [facility] 06-04-2024 Note [facility] 06-04-2024 Hospital course Narrative Images from the original note were not included. ADDICTION MEDICINE 4E DETOX UNIT DISCHARGE SUMMARY Patient MRN ROSE Hogan [id number] Admit Date Discharge Date 06/02/2024 06/04/2024 - patient left [facility] Primary Care Physician Lynda Rasheed MD Admitting Physician Jonatan Mckeon MD Consultants None. Reason for Admission Alcohol detox. DISCHARGE DIAGNOSIS Active Problems Principal Problem: Alcohol withdrawal with inpatient treatment, uncomplicated (HCC) Active Problems: Severe alcohol use disorder (HCC) Resolved Problems None Body mass index is 31.57 kg/m . DETOXIFICATION COURSE Detoxed with a phenobarbital taper and prn medications for alcohol withdrawal symptoms. Unfortunately, he left [facility] on 06/04/24. He says he has a follow up with our lung nodule clinic tomorrow and then has a flight to catch to [place]. He claims to be enrolling into a residential alcohol treatment program in [place] but I have seen no proof of that. Due to hypertension and tachycardia ongoing on 06/04/24 I did not feel he was hemodynamically stable enough for discharge. I did order a 380 mg IM Vivitrol injection which he obtained on 06/04/24 before deciding to leave [facility]. He was recently admitted earlier in May for the same exact issue, but relapsed immediately after discharge. CDT on 05/08/24 was 6.8% indicating chronic drinking. Would recommend repeat CDT in outpatient setting in 2-3 months to monitor alcohol use but he isn't committing to seeing me or any my colleagues in the outpatient setting He has numerous consequences 2/2 to alcoholism including recidivism, peripheral neuropathy and alcoholic fatty liver that need to be evaluated as outpatient. Vitals height is 1.778 m (5' 10) and weight is 99.8 kg (220 lb). His temporal temperature is 36.6 C (97.9 F). His blood pressure is 141/99 and his pulse is 99. His respiration is 20 and oxygen saturation is 94%. Physical Exam Vitals and nursing note reviewed. Constitutional: General: He is not in acute distress. Appearance: Normal appearance. He is ill-appearing. He is not diaphoretic. HENT: Head: Normocephalic and atraumatic. Eyes: Extraocular Movements: Extraocular movements intact. Cardiovascular: Rate and Rhythm: Regular rhythm. Tachycardia present. Pulmonary: Effort: Pulmonary effort is normal. Breath sounds: Normal breath sounds. Abdominal: General: Abdomen is flat. Palpations: Abdomen is soft. Musculoskeletal: General: Normal range of motion. Neurological: General: No focal deficit present. Mental Status: He is alert and oriented to person, place, and time. Motor: Tremor present. Psychiatric: Attention and Perception: Attention and perception normal. He does not perceive auditory or visual hallucinations. Mood and Affect: Mood is anxious. Speech: Speech normal. Behavior: Behavior normal. Behavior is cooperative. Thought Content: Thought content is not paranoid or delusional. Thought content does not include suicidal ideation. Thought content does not include suicidal plan. Labs Results for orders placed or performed during the hospital encounter of 06/02/24 SARS-CoV-2 Antigen Collection Time: 06/02/24 6:31 PM Specimen: Nose; Swab Result Value Ref Range SARS-CoV-2 Antigen Negative Negative Comprehensive metabolic panel Collection Time: 06/02/24 6:34 PM Result Value Ref Range SODIUM 134 (L) 136 - 145 mmol/L POTASSIUM 4.2 3.5 - 5.1 mmol/L CHLORIDE 97 (L) 98 - 107 mmol/L CARBON DIOXIDE 23 22 - 29 mmol/L ANION GAP 14 (H) 3 - 13 mmol/L UREA NITROGEN 3 (L) 9 - 23 mg/dL CREATININE 0.59 (L) 0.72 - 1.25 mg/dL GLUCOSE 85 74 - 100 mg/dL CALCIUM 8.9 8.4 - 10.2 mg/dL AST (SGOT) 49 (H) <34 U/L ALT 44 (H) <40 U/L ALKALINE PHOSPHATASE 110 40 - 150 U/L ALBUMIN 3.6 3.5 - 5.0 g/dL BILIRUBIN, TOTAL 0.4 <1.2 mg/dL TOTAL PROTEIN 7.2 6.4 - 8.3 g/dL eGFR >90.0 >60.0 mL/min/1.73m*2 CBC Collection Time: 06/02/24 6:34 PM Result Value Ref Range Auto WBC 6.7 3.6 - 10.7 10*3/uL RBC 4.77 4.40 - 5.90 10*6/uL Hemoglobin 15.8 13.0 - 18.0 g/dL Hematocrit 45.6 40.0 - 52.0 % MCV 95.6 77.0 - 99.0 fL MCH 33.1 26.0 - 34.0 pg MCHC 34.6 30.5 - 36.0 % RDW 13.4 11.5 - 15.0 % Platelets 184 140 - 440 10*3/uL MPV 8.8 (L) 9.0 - 12.7 fL Magnesium Collection Time: 06/02/24 6:34 PM Result Value Ref Range MAGNESIUM 2.0 1.6 - 2.6 mg/dL Ethanol Collection Time: 06/02/24 6:34 PM Result Value Ref Range ETHANOL IN SER/PLAS 110 (H) <10 mg/dL Drug screen panel, emergency Collection Time: 06/02/24 7:29 PM Result Value Ref Range AMPHETAMINE SCREEN Negative BARBITURATES SCREEN Positive BENZODIAZEPINE SCREEN Negative COCAINE METAB. SCREEN Negative METHADONE SCREEN Negative OPIATES SCREEN Negative OXYCODONE SCREEN Negative PHENCYCLIDINE SCREEN Negative FENTANYL SCREEN, UR QUAL Negative Imaging No results found. Scheduled Inpatient Meds clobetasol, , Topical, BID folic acid, 1 mg, Oral, Daily gabapentin, 600 mg, Oral, TID PHENobarbital, 64.8 mg, Oral, q6h thiamine, 100 mg, Oral, Daily PRN Inpatient Meds PRN medications: acetaminophen, albuterol, aluminum & magnesium hydroxide-simethicone, hydrALAZINE, hydrOXYzine pamoate, loperamide, LORazepam, magnesium hydroxide, nicotine polacrilex, ondansetron ODT, traZODone DISCHARGE INSTRUCTIONS Activity activity as tolerated. Disposition AMA. He says he is flying to [place] tomorrow to enroll in a residential alcohol treatment but would not sign a LAQUITA or use our help to help coordinate this. Medication List START taking these medications Vivitrol injection Generic drug: naltrexone ER Inject 4 mL (380 mg) into the buttocks every 28 (twenty-eight) days. CONTINUE taking these medications albuterol 108 (90 Base) MCG/ACT inhaler Inhale 2 puffs every 6 hours as needed for wheezing or shortness of breath. calcipotriene 0.005 % cream Commonly known as: Dovonex Apply topically 2 times daily. clobetasol 0.05 % cream Commonly known as: Temovate Apply topically 2 times daily. folic acid 1 MG tablet Commonly known as: Folvite Take 1 tablet (1 mg) by mouth daily. gabapentin 300 MG capsule Commonly known as: Neurontin Take 2 capsules (600 mg) by mouth 3 times daily. melatonin 5 MG tablet Take 1 tablet (5 mg) by mouth Nightly. Multiple Vitamins tablet Take 1 tablet by mouth daily. naltrexone 50 MG tablet Commonly known as: Depade Take 1 tablet (50 mg) by mouth daily. nicotine polacrilex 4 MG lozenge Commonly known as: Nicotine Mini Dissolve 1 lozenge (4 mg) in the mouth every 2 hours as needed for smoking cessation. pantoprazole 40 MG EC tablet Commonly known as: ProtoNix Take 1 tablet (40 mg) by mouth daily. thiamine 100 MG tablet Commonly known as: (Vitamin B-1) Thiamine Mononitrate 100 MG tablet Commonly known as: Vitamin B1 Take 1 tablet (100 mg) by mouth daily. Where to Get Your Medications Information about where to get these medications is not yet available Ask your nurse or doctor about these medications Vivitrol injection Follow Up [facility] [address] [facility] [phone] Call To schedule intake appointment for IOP assessment [facility] [address] [facility] [phone] For primary care needs. Future Appointments Date Time Provider Department Center 06/05/2024 10:20 AM Kristin Lara APRN - WAITSTAFF [facility] None 06/16/2024 2:00 PM Lynda Rasheed MD [facility] The patient was also instructed to: Attend AA/NA meetings or a similar 12-step program. Abstain from any mind or mood altering substances that are not prescribed. Follow up with their primary care doctor and/or psychiatrist as soon as possible. Pending studies or issues to follow up with: Consider continuing monthly IM Vivitrol injections for MAT. Have liver health and peripheral neuropathy evaluated by PCP. Consider repeat CDT testing in 2-3 months. Time spent on discharge summary: < 30 minutes documented in this encounter [facility] 06-04-2024 Nurse Note Patient reports he has a CT scan tomorrow morning at [facility] and then will be leaving for addiction treatment in [place] later that day. He spoke with the doctor about wanting to be discharged today. Dr. mckeon said he can not discharge him and he will need to go AMA. The patient reports with the arrangement he made he can not wait therefore, he will be signing out. He was encouraged to stay later or go in the morning. He states that will not work with all he needs to do to get ready to leave. He reports his will be picking him up after work around 3:20 pm. at the old main entrance. He denies thoughts of wanting to harm himself or others. He denies any form of hallucinations. He denies any issues after the Vivitrol injection given. His only complaint is a little dry mouth. He says water has helped that sensation. Offered a meeting book, tool box card, and little red big book. He reports having them at home already. He is aware that if he has any issues / symptoms of withdraw he should return to the emergency room. He voiced understanding. Questions encouraged / answered. Reviewed medications given today and those that are still needs. He voiced understanding of his medications. 1505 his clothes to change into were given back to the patient by our tech. He changed into them to leave. 1509- The patient is being walked down to the exit. He has his items from the room in hand. He is wearing his bracelet for the injections he just received. He has a steady gait and is without complaint. [facility] 06-04-2024 Nurse Note Patient reports he has a CT scan tomorrow morning at [facility] and then will be leaving for addiction treatment in [place] later that day. He spoke with the doctor about wanting to be discharged today. Dr. mckeon said he can not discharge him and he will need to go AMA. The patient reports with the arrangement he made he can not wait therefore, he will be signing out. He was encouraged to stay later or go in the morning. He states that will not work with all he needs to do to get ready to leave. He reports his will be picking him up after work around 3:20 pm. at the old main entrance. He denies thoughts of wanting to harm himself or others. He denies any form of hallucinations. He denies any issues after the Vivitrol injection given. His only complaint is a little dry mouth. He says water has helped that sensation. Offered a meeting book, tool box card, and little red big book. He reports having them at home already. He is aware that if he has any issues / symptoms of withdraw he should return to the emergency room. He voiced understanding. Questions encouraged / answered. Reviewed medications given today and those that are still needs. He voiced understanding of his medications. 1505 his clothes to change into were given back to the patient by our tech. He changed into them to leave. 1509- The patient is being walked down to the exit. He has his items from the room in hand. He is wearing his bracelet for the injections he just received. He has a steady gait and is without complaint. No issue reported after the Naltrexone pill given to the patient. He reports last time he took the medication it really helped his cravings. He reports taking the oral and injection form once in the past. He reports that he took the injection in the past and tolerated it well. Education on Vivitrol injection completed. Information reviewed and time allowed for questions. He voiced understanding of the information. Mr. Hogan is agreeable to alert his and treatment facility that he is checking into that he took a medication that can cause a depressed mood and asking the persons told to brings such mood changes if noted to his attention. The patient is agreeable to seek medical attention immediately if he were to have any thoughts of self harm. He is knowledgeable about the importance of wearing identifications of taking this medication that would alert medical personnel so if needed they could properly treat him. Patient is up and steady, seen socializing in group room. Pt is cooperative and med compliant. Pt denies SI/HI/AVH. Pt encouraged to notify staff for any questions and concerns. Patient woke up at 0900, and all safety measures in place. Patient anxious. Patient attended groups. Patient eating and drinking well. Patient wears glasses. Patient compliant with all medications Q-shift. Patient states I want to leave tomorrow. I have to go to [facility] on Saturday for Lung nodules. Patient denies S.I.,H.I.AH/VH/TH Q-shift. CIWA of 5. Continue to monitor patient. Patient received Nicotine Lozenge as per orders PRN PO at 1340, and 1740. Med. Rec. Done with Jesse at [facility] at 1230. Patient received PO PRN Tylenol as per orders at 1228 for lower back arthritis pain. Patient received Nicotine Lozenge at 1139 and 1705 PRN PO as per orders. Patient received PO PRN Albuterol as per orders at 1705. Skin check was done - pt has some psoriasis related spots. Pt signed admission paperwork. Pt reports drinking 6 - 9 beers per day, but has recently lowered it to 3 beers per day. He reports his appetite is good. He is up and steady. He is A and O x 4. Nicotine lozenges given to pt as needed and Trazodone was given for sleep. Pt denies SI/HI/AVH. Pt is compliant with his medications. documented in this encounter [facility] 06-04-2024 Nurse Note No issue reported after the Naltrexone pill given to the patient. He reports last time he took the medication it really helped his cravings. He reports taking the oral and injection form once in the past. [facility] 06-04-2024 History of Present illness Narrative Images from the original note were not included. ADDICTION MEDICINE PROGRESS NOTE Patient: Maria De Jesus Hogan Problem List: Principal Problem: Alcohol withdrawal with inpatient treatment, uncomplicated (HCC) Active Problems: Severe alcohol use disorder (HCC) SUBJECTIVE Chief Complaint Patient presents with Alcohol Problem Pt here for detox. Last drink 30 minutes ago drank 3 tallboys normally has 6-9tallboys Last 4 CIWA scores per RN assessments 3 - 2 - 5 - 5 Interim History The patient reports he is great this morning. He is motivated to leave. He feels anxious about going to the residential treatment facility in [place] but is hopeful about it. He needs to leave by 3:00 PM today to prepare for his flight. He has a pulmonology appointment tomorrow and then is to go to the airport. He denies current physical symptoms of withdrawal, stating the anxiety is not related to it. He slept well and has an intact appetite. He denies SI/HI/AVH. He acknowledges the concern about his heart rate but still feels the need to leave the hospital, reporting the tachycardia is from drinking 3 cups of coffee and his frequent movement. He was advised to remain on the unit for monitoring until 6:00 PM. He is open to MAT and getting the Vivitrol injection. Review of Systems Review of Systems Constitutional: Negative for chills, decreased appetite, diaphoresis, fever and malaise/fatigue. HENT: Negative for congestion. Cardiovascular: Positive for dyspnea on exertion. Negative for chest pain and palpitations. Musculoskeletal: Negative for muscle cramps, muscle weakness and myalgias. Gastrointestinal: Negative for abdominal pain, nausea and vomiting. Neurological: Positive for numbness and paresthesias. Negative for tremors. Psychiatric/Behavioral: Negative for depression, suicidal ideas and thoughts of violence. The patient is nervous/anxious. The patient does not have insomnia. OBJECTIVE Vitals Vitals: 06/03/24 2307 06/04/24 0535 06/04/24 1018 06/04/24 1054 BP: (!) 149/106 137/97 (!) 141/102 141/99 BP Location: Left arm Left arm Patient Position: Sitting Sitting Pulse: 112 118 102 99 Resp: 16 16 20 Temp: 36.4 C (97.5 F) 36.4 C (97.5 F) 36.6 C (97.9 F) TempSrc: Temporal Temporal Temporal SpO2: 96% 95% 94% Weight: Height: Physical Exam Vitals and nursing note reviewed. Constitutional: Appearance: Normal appearance. He is not ill-appearing or diaphoretic. HENT: Head: Normocephalic and atraumatic. Nose: Nose normal. No congestion or rhinorrhea. Mouth/Throat: Mouth: Mucous membranes are moist. Pharynx: Oropharynx is clear. Eyes: Conjunctiva/sclera: Right eye: Right conjunctiva is injected. Left eye: Left conjunctiva is injected. Cardiovascular: Rate and Rhythm: Tachycardia present. Pulses: Normal pulses. Pulmonary: Effort: Pulmonary effort is normal. Musculoskeletal: General: Normal range of motion. Cervical back: Normal range of motion. Skin: General: Skin is warm. Neurological: Mental Status: He is alert and oriented to person, place, and time. Motor: No tremor. Psychiatric: Attention and Perception: Attention and perception normal. Mood and Affect: Affect normal. Mood is anxious. Speech: Speech normal. Behavior: Behavior is hyperactive. Behavior is cooperative. Thought Content: Thought content normal. Cognition and Memory: Cognition and memory normal. Medications Home Meds Current Outpatient Medications Medication Instructions albuterol 108 (90 Base) MCG/ACT inhaler 2 puffs, Inhalation, Every 6 hours PRN calcipotriene (Dovonex) 0.005 % cream Topical, 2 times daily clobetasol (Temovate) 0.05 % cream Topical, 2 times daily folic acid (FOLVITE) 1 mg, Oral, Daily gabapentin (NEURONTIN) 600 mg, Oral, 3 times daily melatonin 5 mg, Oral, Nightly Multiple Vitamins tablet 1 tablet, Oral, Daily naltrexone (DEPADE) 50 mg, Oral, Daily nicotine polacrilex (NICOTINE MINI) 4 mg, Mouth/Throat, Every 2 hour PRN pantoprazole (PROTONIX) 40 mg, Oral, Daily thiamine ((VITAMIN B-1)) 100 mg, Daily Thiamine Mononitrate (VITAMIN B1) 100 mg, Oral, Daily Scheduled Inpatient Meds clobetasol, , Topical, BID folic acid, 1 mg, Oral, Daily gabapentin, 600 mg, Oral, TID naltrexone ER, 380 mg, IntraMUSCular, Once PHENobarbital, 64.8 mg, Oral, q6h thiamine, 100 mg, Oral, Daily PRN Inpatient Meds PRN medications: acetaminophen, albuterol, aluminum & magnesium hydroxide-simethicone, hydrALAZINE, hydrOXYzine pamoate, loperamide, LORazepam, magnesium hydroxide, nicotine polacrilex, ondansetron ODT, traZODone Continuous Inpatient Infusions Recent Imaging No results found. Labs CBC: Recent Labs 06/02/24 1834 WBC 6.7 HGB 15.8 PLT 184 MCV 95.6 RDW 13.4 BMP: Recent Labs 06/02/24 1834 NA 134* K 4.2 CL 97* CO2 23 BUN 3* CREATININE 0.59* CALCIUM 8.9 MG 2.0 Liver Profile: Recent Labs 06/02/24 1834 AST 49* ALT 44* BILITOT 0.4 ALKPHOS 110 PROT 7.2 Glucose: Recent Labs 06/02/24 1834 GLUCOSE 85 Lactic Acid: No lab exists for component: LACTA Cardiac Injury Profile: No results for input(s): CKTOTAL, CKMB, TROPONINI in the last 72 hours. Last 24 Hours: No results found for this or any previous visit (from the past 24 hours). ASSESSMENT & PLAN Alcohol use disorder, severe Counseled patient on biopsychosocial consequences of substance use. Encouraged professional chemical dependency treatment. Encouraged 12 step meeting attendance. Follow up plans for addiction management discussed with patient: Patient reporting he is to go to a 90 day rehab in [place], [place] tomorrow. He is agreeable to starting MAT Vivitrol with trial of oral naltrexone to ensure he tolerates it. Alcohol withdrawal Last use of alcohol was on 06/02. Phenobarbital taper to manage alcohol withdrawal symptoms. 64.8 mg q 6 hours for today. Naltrexone 50 mg once to ensure will tolerate Vivitrol injection for MAT. Vivitrol 380 mg IM to be administered if tolerated. CIWA scores per unit protocol. Thiamine 100 mg daily, folic acid 1 mg daily. PRN medications for withdrawal symptom management added. Encouraged to participate in all unit activities. Seizure precautions, fall precautions. Alcoholic peripheral neuropathy Start home Gabapentin 600 mg TID. Elevated liver enzymes Hx fatty liver Likely 2/2 alcohol use, no acute abdominal complaints. Monitor liver enzymes. Tachycardia Likely related to withdrawal and caffeine consumption. HR 118 then 102 this morning. One time dose of clonidine 0.1 mg given. One time dose of metoprolol 25 mg given. Disposition: Discharge anticipated in 0-1 days. Discussed an evening discharge today as he is to leave for residential in [place] tomorrow. His heart rate was tachycardic and was being treated. He was asked to remain on the unit for monitoring until 6:00 PM. A discharge prior to this time will be considered AMA. This is pending: Resolution of withdrawal symptoms. Medical stabilization. Labs/tests/tasks to review: Monitor HR/tachycardia. Tray Setter to coordinate care with: N/A. Will follow. Cosigned by Jonatan Mckeon MD at 06/04/2024 1:12 PM EST Associated attestation - Jonatan Mckeon MD - 06/04/2024 1:12 PM EST I saw and evaluated the patient, participating in the laboy portions of the service. We reviewed the patient's medical record and test results. I personally spent a total 35 minutes in counseling and discussion with the patient and coordination of care. This included a face to face evaluation and physical examination, and documenting clinical information on the day of visit. I have reviewed the resident's note. I agree with the resident s findings and plan, with any additions or corrections listed below. He states he needs to leave by 3 pm today. I told him that that would be an AMA admission as he is not hemodynamically stable enough for discharge (has not been here 72 hours, and HR/BP still elevated). He understands consequences of leaving AMA and say she is still going to leave A Will give him Vivitrol IM before he leaves. Nutrition rescreen completed. Patient assigned a level 1. Patient declined smoking cessation counseling at this time. He was counseled on 05/09/2024. Patient has all of the smoking cessation handouts. Will follow up in 6 weeks. documented in this encounter [facility] 06-04-2024 Nurse Note He reports that he took the injection in the past and tolerated it well. Education on Vivitrol injection completed. Information reviewed and time allowed for questions. He voiced understanding of the information. Mr. Hogan is agreeable to alert his and treatment facility that he is checking into that he took a medication that can cause a depressed mood and asking the persons told to brings such mood changes if noted to his attention. The patient is agreeable to seek medical attention immediately if he were to have any thoughts of self harm. He is knowledgeable about the importance of wearing identifications of taking this medication that would alert medical personnel so if needed they could properly treat him. [facility] 06-04-2024 Hospital Discharge instructions Christie Greene DO - 06/04/2024 10:51 AM EST Images from the original note were not included. [facility] PROGRAMS Addiction Medicine Intensive Outpatient Program [place] ([facility]): [phone] [place]: [phone] [place]: [phone] Behavioral Health Intensive Outpatient Program [place] ([facility]): [phone] [place]: [phone] First Step [place] ([facility]): [phone] [place]: [phone] Partial Hospitalization Program [place] ([facility]): [phone] Traumatic Stress Center [place] ([facility]): [phone] Vivitrol Clinic [place] ([facility]): [phone] Alcoholics Anonymous Meetings [email or web address], [address], [place] [address] JEREMY Solis - 06/03/2024 11:46 AM EST After detox you should abstain from any use of any mood altering chemical Appointment with your primary care physician should be scheduled It is highly recommended that you attend post hospital treatment Please read the information give to you - Intro to 12 step programs Call the National Suicide Prevention Hotline if needed at: 3-916-419-VUTF (1577) Please call the following number should you have questions regarding your discharge or aftercare appointments: [facility] documented in this encounter [facility] 06-04-2024 Nurse Note Patient is up and steady, seen socializing in group room. Pt is cooperative and med compliant. Pt denies SI/HI/AVH. Pt encouraged to notify staff for any questions and concerns. [facility] 06-03-2024 Nurse Note Patient woke up at 0900, and all safety measures in place. Patient anxious. Patient attended groups. Patient eating and drinking well. Patient wears glasses. Patient compliant with all medications Q-shift. Patient states I want to leave tomorrow. I have to go to [facility] on Saturday for Lung nodules. Patient denies S.I.,H.I.AH/VH/TH Q-shift. CIWA of 5. Continue to monitor patient. [facility] 06-03-2024 Note Patient declined smo myles cessation counseling at this time. He was counseled on 05/09/2024. Patient has all of the smoking cessation handouts. Will follow up in 6 weeks. [facility] 06-03-2024 Nurse Note Patient received Nicotine Lozenge as per orders PRN PO at 1340, and 1740. [facility] 06-03-2024 Telephone encounter Note LVM for pt to call office to reschedule CT scan and follow up kavon Lara. [facility] 06-03-2024 Nurse Note Med. Rec. Done with Jesse at [facility] at 1230. [facility] 06-03-2024 Nurse Note Patient received PO PRN Tylenol as per orders at 1228 for lower back arthritis pain. [facility] 06-03-2024 Group counseling note Department: [facility] Group Topic: Recreation Therapy Group Date: 06/03/2024 Start Time: 1030 End Time: 1103 Facilitators: Aurora Camarena Number of Participants: 9 Group Name: Recreation Therapy Treatment Modality: Recreation Therapy Purpose: enhance coping skills Summary: Chat Pack - To allow Patients the opportunity to explore self awareness and socialization through leisure engagement. Discussion to focus on their experience of participation, as well as, the process of reconnection to leisure interests. Name: Maria De Jesus Hogan Date of : 1965 MR: [id number] Appearance: Good eye contact Affect: Appropriate Behavior: Pleasant Alertness: Alert Speech: Appropriate Level/Quality of Participation: minimal Interactions with others: na Interventions utilized were Building rapport and engagement Patient's Response to Intervention: Patient engaged minimally in intervention by sharing their thoughts and experiences when responding to questions. Patient was pulled for much of the group causing minimal participation. Patient supported in utilizing recreation to support coping. Continue to encourage patient participation in groups. 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 Patient received PO PRN Albuterol as per orders at 1705. [facility] 06-03-2024 Note Formatting of this n ote is different from the original. Behavioral Health Psycho-Social Assessment (Social Work) Date: 06/03/2024 Patient Name: Maria De Jesus Hogan : 1965 Identifying Information: Patient is a 58-year-old male mated to 4 E. for detox and alcohol. Patient is well-known to diction medicine team as he previously on 05/07/2024. Patient was scheduled with follow-up for IOP and MAT services however patient did not comply with treatment recommendations and did not make his scheduled appointments. Patient was then seen in the ED on 05/25/2024 for head injury secondary to alcohol use disorder. Presenting Problem: Patient presented to the ED on 06/02/2024 requesting detox of alcohol. Patient reports last use was just prior to walking into the emergency room. Went to detox on May 07 through the and was sober for 2 weeks. Reports he started drinking 3, 24 ounce beers daily. Patient reports at [facility] was drinking 9, 24 ounce beers daily. 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 Psychiatric History: Patient has mental health diagnosis depression anxiety. Patient denies being on any medication for mental health needs. Patient has previous engagement with outpatient mental health providers but denies any current treatment. Patient has history of noncompliance with treatment medications Patient has history of psychiatric admission. Reports admissions were due to suicidal ideation while intoxicated. Denies history of recent or past history suicide attempts. Patient denies current SI/HI/AVH. Patient does have an extensive history of passive SI secondary to intoxication. Patient denies plan, intent, or method but reports more increased feelings of depression and sadness. Patient denies recent or past history of SIB. Substance Abuse/Use: Patient reports that he is currently drinking upwards of 9, 24 ounce Natty Daddy beers daily. Reports most recently limiting himself 23, 24 ounce beers daily. Patient reports his last drink was 06/02/2024.. Patient labs are positive for alcohol (0.110) and barbitutaes. Patient first drank alcohol when he was [age] years old. Patient reports that his use was regular in his 20s, and problematic 12 years ago. He cannot identify a trigger to his problematic use, other than, I like beer . He drinks the point of intoxication, blackouts, and vomiting. He denies history of withdrawal seizure, alcohol overdoses, or DTs. Patient does have extensive history of falls while intoxicated. Patient denies any history of MAT engagement. Patient reports his longest period of sobriety was 6 months. Patient most recently only being able to maintain sobriety for 2 weeks. Patient has previous history of detox occurring on 05/07/2024, 01/23/2024, 07/27/2023, 07/08/2023, 02/08/2023, 05/20/2023 (medical), 10/25/2021, 02/15/2021 (left AMA), 06/09/20, 10/01/19, 08/31/19 (left AMA), 2017 (left AMA), and 2014 (left AMA). He denies history of residential treatment Patient reports previous history of engagement with AA as well as IOP. Patient most recently was assessed for IOP but did not complete any programming and was dismissed. Medical/Self-care Issues: Patient has medical issues such as COPD, Lombardo's esophagus, macrocytosis, and HTN. Patient has ongoing struggles with self-care secondary to substance use disorder. Patient is increased in both frequency and tolerance over time. Patient also report struggling to recover from the effects of his substance use. Patient reports experiencing poor nutrition and sleep secondary to his substance use. Legal/Trauma/ History: Patient denies any current legal issues. Patient reports past legal history of child support violations. Patient denies any history of childhood abuse. Patient does report however his father when he was 11 years old which was a traumatic incident to him. Patient denies any history of trauma abuse as an adult. Patient denies any history [place] or status. Family Constellation/Childhood History: Patient reports that he is currently to his living in [facility]. Patient reports that he has 3 biological children and 4 stepchildren. Patient reports that his father in his 11 years old. Patient did not report his mother is still alive currently. Patient was born and raised in [place], [place] by his mother and father. He reports that his father when he was 11 years old, and this was traumatic for him. Patient reports that he was raised primarily by his mother for the remainder of his childhood. He denies childhood abuse. Education/Work: Patient reports that he graduated high school. 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 Patient denies SSI/SSD. Cultural/Spirituality/Leisure: Patient denies any cultural needs or concerns at the current time. Patient denies identify any yarsanism preference. It is unknown if patient is attending services anywhere currently. Patient reports he used to enjoy leisure activities such as golfing but has been unable to do so due to his ongoing substance use disorder. Support Systems/Collateral Information: Patient reports that his is his primary social. Patient reports that she is sober and supportive of his recovery needs and efforts. Patient reports that his is aware that he is admitted to the hospital. C-SSRS Actual Attempt (Past 3 Months): No (Patient has history of psychiatric admission. Reports admissions were due to suicidal ideation while intoxicated. Denies history of recent history suicide attempts) Actual Attempt (Lifetime): No (Patient denies past history of suicide attempts) Interrupted Attempts (Past 3 Months): No (Patient denies) Interrupted Attempts (Lifetime): No (Patient denies) Aborted or Self-Interrupted Attempt (Past 3 Months): No (Patient denies) Aborted or Self-Interrupted Attempt (Lifetime): No (Patient denies) Preparatory Acts or Behavior (Past 3 Months): No (Patient denies) Preparatory Acts or Behavior (Lifetime): No (Patient denies) Has subject engaged in non-suicidal self-injurious behavior? (Past 3 Months): No (Patient denies any recent history of SIB) Has subject engaged in non-suicidal self-injurious behavior? (Lifetime): No (Patient denies any past history of SIB) Suicidal Ideation: (Patient denies current SI/HI/AVH. Patient does have an extensive history of passive SI secondary to intoxication. Patient denies plan, intent, or method but reports more increased feelings of depression and sadness.) Activating Events (Recent): Recent loss(es) or other significant negative event(s) (legal, financial, relationship, etc.) Describe:: Ongoing struggles with alcohol use Treatment History: Previous psychiatric diagnoses and treatments, Not receiving treatment, Non-compliant with treatment (Patient has mental health diagnosis depression anxiety. Patient denies being on any medication for mental health needs. Patient has previous engagement with outpatient mental health providers but denies any current treatment.) Clinical Status (Recent): Substance abuse or dependence, Hopelessness, Agitation or severe anxiety, Major depressive episode, Perceived burden on family or others, Highly impulsive behavior (Risk factors) Protective Factors (Recent): Identifies reasons for living, Responsibility to family or others and/or living with family, Supportive social network or family (Protective factors) Describe any suicidal, self-injurious or aggressive behavior (include dates): Patient has history of psychiatric admission. Reports admissions were due to suicidal ideation while intoxicated. Denies history of recent or past history suicide attempts. Patient denies current SI/HI/AVH. Patient does have an extensive history of passive SI secondary to intoxication. Patient denies plan, intent, or method but reports more increased feelings of depression and sadness. Patient denies recent or past history of SIB. Patient has mental health diagnosis depression anxiety. Patient denies being on any medication for mental health needs. Patient has previous engagement with outpatient mental health providers but denies any current treatment. Patient has history of noncompliance with treatment medications Plan: Patient was provided information for IOP and MAT services if he would like to schedule any aftercare plans postdischarge from the hospital. Patient encouraged to take active process in his own recovery needs and efforts. Patient has been scheduled multiple appointments and no showed all appointments so patient is encouraged to be active in his own recovery plan at current time. Patient encouraged to engage in all activities that are offered to them while they are on the unit. Patient report needing additional current time. Patient encouraged to seek out ELDER COUNSELOR unit staff should they identify any additional needs or concerns. Comment: Please note this report has been produced using speech recognition software and may contain errors related to that system including errors in grammar, punctuation, and spelling, as well as words and phrases that may be inappropriate. If there are any questions or concerns please feel free to contact the dictating provider for clarification. [facility] 06-03-2024 Note Formatting of this n ote is different from the original. Behavioral Health Psycho-Social Assessment (Social Work) Date: 06/03/2024 Patient Name: Maria De Jesus Hogan : 1965 Identifying Information: Patient is a 58-year-old male mated to E for detox and alcohol. Patient is well-known to diction medicine team as he previously on 05/07/2024. Patient was scheduled with follow-up for IOP and MAT services however patient did not comply with treatment recommendations and did not make his scheduled appointments. Patient was then seen in the ED on 05/25/2024 for head injury secondary to alcohol use disorder. Presenting Problem: Patient presented to the ED on 06/02/2024 requesting detox of alcohol. Patient reports last use was just prior to walking into the emergency room. Went to detox on May 07 through the and was sober for 2 weeks. Reports he started drinking 3, 24 ounce beers daily. Patient reports at [facility] was drinking 9, 24 ounce beers daily. 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 Psychiatric History: Patient has mental health diagnosis depression anxiety. Patient denies being on any medication for mental health needs. Patient has previous engagement with outpatient mental health providers but denies any current treatment. Patient has history of noncompliance with treatment medications Patient has history of psychiatric admission. Reports admissions were due to suicidal ideation while intoxicated. Denies history of recent or past history suicide attempts. Patient denies current SI/HI/AVH. Patient does have an extensive history of passive SI secondary to intoxication. Patient denies plan, intent, or method but reports more increased feelings of depression and sadness. Patient denies recent or past history of SIB. Substance Abuse/Use: Patient reports that he is currently drinking upwards of 9, 24 ounce Natty Daddy beers daily. Reports most recently limiting himself 23, 24 ounce beers daily. Patient reports his last drink was 06/02/2024.. Patient labs are positive for alcohol (0.110) and barbitutaes. Patient first drank alcohol when he was [age] years old. Patient reports that his use was regular in his 20s, and problematic 12 years ago. He cannot identify a trigger to his problematic use, other than, I like beer . He drinks the point of intoxication, blackouts, and vomiting. He denies history of withdrawal seizure, alcohol overdoses, or DTs. Patient does have extensive history of falls while intoxicated. Patient denies any history of MAT engagement. Patient reports his longest period of sobriety was 6 months. Patient most recently only being able to maintain sobriety for 2 weeks. Patient has previous history of detox occurring on 05/07/2024, 01/23/2024, 07/27/2023, 07/08/2023, 02/08/2023, 05/20/2023 (medical), 10/25/2021, 02/15/2021 (left AMA), 06/09/20, 10/01/19, 08/31/19 (left AMA), 2016 (left AMA), and 2014 (left AMA). He denies history of residential treatment Patient reports previous history of engagement with AA as well as IOP. Patient most recently was assessed for IOP but did not complete any programming and was dismissed. Medical/Self-care Issues: Patient has medical issues such as COPD, Lobmardo's esophagus, macrocytosis, and HTN. Patient has ongoing struggles with self-care secondary to substance use disorder. Patient is increased in both frequency and tolerance over time. Patient also report struggling to recover from the effects of his substance use. Patient reports experiencing poor nutrition and sleep secondary to his substance use. Legal/Trauma/ History: Patient denies any current legal issues. Patient reports past legal history of child support violations. Patient denies any history of childhood abuse. Patient does report however his father when he was 11 years old which was a traumatic incident to him. Patient denies any history of trauma abuse as an adult. Patient denies any history [place] or status. Family Constellation/Childhood History: Patient reports that he is currently to his living in [facility]. Patient reports that he has 3 biological children and 4 stepchildren. Patient reports that his father in his 11 years old. Patient did not report his mother is still alive currently. Patient was born and raised in [place], [place] by his mother and father. He reports that his father when he was 11 years old, and this was traumatic for him. Patient reports that he was raised primarily by his mother for the remainder of his childhood. He denies childhood abuse. Education/Work: Patient reports that he graduated high school. 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 Patient denies SSI/SSD. Cultural/Spirituality/Leisure: Patient denies any cultural needs or concerns at the current time. Patient denies identify any yarsanism preference. It is unknown if patient is attending services anywhere currently. Patient reports he used to enjoy leisure activities such as golfing but has been unable to do so due to his ongoing substance use disorder. Support Systems/Collateral Information: Patient reports that his is his primary social. Patient reports that she is sober and supportive of his recovery needs and efforts. Patient reports that his is aware that he is admitted to the hospital. C-SSRS Actual Attempt (Past 3 Months): No (Patient has history of psychiatric admission. Reports admissions were due to suicidal ideation while intoxicated. Denies history of recent history suicide attempts) Actual Attempt (Lifetime): No (Patient denies past history of suicide attempts) Interrupted Attempts (Past 3 Months): No (Patient denies) Interrupted Attempts (Lifetime): No (Patient denies) Aborted or Self-Interrupted Attempt (Past 3 Months): No (Patient denies) Aborted or Self-Interrupted Attempt (Lifetime): No (Patient denies) Preparatory Acts or Behavior (Past 3 Months): No (Patient denies) Preparatory Acts or Behavior (Lifetime): No (Patient denies) Has subject engaged in non-suicidal self-injurious behavior? (Past 3 Months): No (Patient denies any recent history of SIB) Has subject engaged in non-suicidal self-injurious behavior? (Lifetime): No (Patient denies any past history of SIB) Suicidal Ideation: (Patient denies current SI/HI/AVH. Patient does have an extensive history of passive SI secondary to intoxication. Patient denies plan, intent, or method but reports more increased feelings of depression and sadness.) Activating Events (Recent): Recent loss(es) or other significant negative event(s) (legal, financial, relationship, etc.) Describe:: Ongoing struggles with alcohol use Treatment History: Previous psychiatric diagnoses and treatments, Not receiving treatment, Non-compliant with treatment (Patient has mental health diagnosis depression anxiety. Patient denies being on any medication for mental health needs. Patient has previous engagement with outpatient mental health providers but denies any current treatment.) Clinical Status (Recent): Substance abuse or dependence, Hopelessness, Agitation or severe anxiety, Major depressive episode, Perceived burden on family or others, Highly impulsive behavior (Risk factors) Protective Factors (Recent): Identifies reasons for living, Responsibility to family or others and/or living with family, Supportive social network or family (Protective factors) Describe any suicidal, self-injurious or aggressive behavior (include dates): Patient has history of psychiatric admission. Reports admissions were due to suicidal ideation while intoxicated. Denies history of recent or past history suicide attempts. Patient denies current SI/HI/AVH. Patient does have an extensive history of passive SI secondary to intoxication. Patient denies plan, intent, or method but reports more increased feelings of depression and sadness. Patient denies recent or past history of SIB. Patient has mental health diagnosis depression anxiety. Patient denies being on any medication for mental health needs. Patient has previous engagement with outpatient mental health providers but denies any current treatment. Patient has history of noncompliance with treatment medications Plan: Patient was provided information for IOP and MAT services if he would like to schedule any aftercare plans postdischarge from the hospital. Patient encouraged to take active process in his own recovery needs and efforts. Patient has been scheduled multiple appointments and no showed all appointments so patient is encouraged to be active in his own recovery plan at current time. Patient encouraged to engage in all activities that are offered to them while they are on the unit. Patient report needing additional current time. Patient encouraged to seek out [facility]SEL[facility] unit staff should they identify any additional needs or concerns. Comment: Please note this report has been produced using speech recognition software and may contain errors related to that system including errors in grammar, punctuation, and spelling, as well as words and phrases that may be inappropriate. If there are any questions or concerns please feel free to contact the dictating provider for clarification. [facility] 06-03-2024 History and physical note Images from the original note were not included. ADDICTION MEDICINE 4E DETOX UNIT H&P Patient: Maria De Jesus Hogan Admit Date: 06/02/2024 Primary Care Physician: Lynda Rasheed MD HISTORY OF PRESENT ILLNESS Chief Complaint Patient presents with Alcohol Problem Pt here for detox. Last drink 30 minutes ago drank 3 tallboys normally has 6-9tallboys Maria De Jesus Hogan is a 58 y.o. year old male with a PMH of stroke, HTN, peripheral neuropathy, fatty liver, BHP, Lombardo's esophagus, GERD that was admitted for detox from alcohol. Maria De Jesus Hogan was recently admitted to the [facility] detox unit from 05/07 through 05/10. He admits to relapsing and drinking shortly after his discharge. He started by drinking 6 tall boy 8% beers per day. He blames this on his step-daughter, who was reportedly bringing alcohol into the household. He states that he kicked her out and has been slowly decreasing his alcohol intake to 3 beers per day. He discussed his alcohol intake with his wealth uncle in [place], [place] and his uncle agreed to bring him to [place] for rehabilitation. He is supposed to leave Saturday, with his , for a 90 day program, while his son will watch his house. Per ED documentation, he was supposed to start a new job on Saturday, but he states his uncle cleared this up. At the current time, he denies any symptoms of withdrawal outside of tremor and increased anxiety. He slept well and has an intact appetite. He has chronic peripheral neuropathy. He denies SI/HI/AVH. On admission, a urine drug screen was positive for barbiturates, and a serum alcohol level was 110. SUBSTANCE USE HISTORY Brief Substance Use Narrative Patient admits to drinking alcohol for the first time at age [age] and that it became regular to drink at age 22. His drinking did not become problematic until 12 years ago. His longest period of sobriety was 6 months. On average, he consumes 6-9 tall boy 24 ounce 8% beers per day. He also smokes 1-1.5 ppd of cigarettes since age 19. He denies other substance use but tried other stuff in the 80's. Current Substance Use Alcohol: Reports 3-6 tall boys per day. Amphetamines: Denies. Benzos: Denies. Cocaine: Denies. Hallucinogens: Denies. Marijuana: Denies. Nicotine: 1-1.5 ppd, attempting to cut back. Opioids: Denies. Treatment History Inpatient Rehab: Denies. Chem Dep IOP: Previously attended. Detoxifications: Has been on the detox unit and admitted medically for detox multiple times. 12 Step Meetings: Previous history of engagement. Medication Assisted Treatment: Has responded positively to naltrexone and possibly Vivitrol in the past. Consequences [] IVDA. [x] Blackouts related to substance use. [] History of withdrawal seizures. [] History of delirium tremens. [x] History of overdoses. [x] Legal consequences of substance use. Substance Use Disorder Criteria 2-3 = mild; 4-5 = moderate; 6 or >6 = severe substance use disorder [x] Taking substance in larger amounts and/or for longer than intended. [x] Wanting to cut down or quit but not being able to. [x] Spending a lot of time obtaining the substance. [x] Craving or a strong desire to use substance. [x] Repeatedly doesn't carry out major obligations due to substance use. [x] Using despite recurring social or interpersonal problems. [x] Reducing social, occupational, or recreational activities. [x] Recurrent use in physically hazardous situations. [x] Consistent use despite recurrent physical or psychological difficulties. [x] Tolerance (increased amounts to achieve intoxication or diminished effect). [x] Withdrawal syndrome or the substance is used to avoid withdrawal. REMAINING HISTORY Psychiatric History Current Psychiatrist: Denies Current Medications: Denies Diagnoses: Denies; per chart, anxiety and depression Previous Medication Trials: Denies Psychiatric Hospitalizations: Denies Previous Suicide Attempts: Denies Adverse Childhood Events: Denies Trauma History: Denies History of Head Injuries: Denies Past Medical History Past Medical History: Diagnosis Date Alcohol abuse Alcohol dependence with withdrawal ([facility]) 08/31/2019 Alcohol intoxication without use disorder, uncomplicated (HCC) 10/01/2019 Alcohol use disorder 09/10/2022 Alcohol withdrawal syndrome with complication (HCC) 09/27/2021 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) 11/28/2023 Alcohol withdrawal syndrome without complication (HCC) Alcohol withdrawal with inpatient treatment without complication (HCC) 01/20/2024 Alcohol withdrawal, uncomplicated (HCC) 08/31/2019 Alcohol withdrawal, with unspecified complication (HCC) 10/02/2019 Alcohol withdrawal, with unspecified complication (HCC) 10/02/2019 Alcoholic intoxication without complication (CMS/HCC) (HCC) 04/10/2024 Alcoholism (CMS/HCC) (HCC) Anxiety Apical lung nodule Arthritis Maria De Jesus Cerebral artery occlusion with cerebral infarction (HCC) Cerebrovascular disease Depression GERD (gastroesophageal reflux disease) Maria De Jesus Hypertension Insomnia Past Surgical History Past Surgical History: Procedure Laterality Date COLONOSCOPY 06/10/2020 EGD/Dr Madison/B CYST REMOVAL face EGD (HISTORICAL) 07/23/2022 Dr. Estrella-[facility] SMALL INTESTINE SURGERY UPPER GASTROINTESTINAL ENDOSCOPY 09/27/2021 normal WISDOM TOOTH EXTRACTION Family History Family History Problem Relation Name Age of Onset Depression Sister Maria De Jesus Hogan Other ([id number]) Sister Maria De Jesus Hogan agoraphobia Arthritis Sister Maria De Jesus Hogan Cancer Mother Maria De Jesus Hogan colon rectal cancer; dx after age 50 Other ([id number]) Mother Maria De Jesus Hogan alcoholism Alcohol abuse Mother Maria De Jesus Hoagn Stroke Mother Maria De Jesus Hogan Other ([id number]) Father Maria De Jesus Hogan h/o rheumatic fever, cardiac arrest due to bee sting Hypertension Father Maria De Jesus Hogan Social Drivers of Brainscape Tobacco Use: High Risk (05/25/2024) Patient History Smoking Tobacco Use: Every Day Smokeless Tobacco Use: Never Passive Exposure: Past Alcohol Use: Alcohol Misuse (06/02/2024) AUDIT-C Frequency of Alcohol Consumption: 4 or more times a week Average Number of Drinks: 5 or 6 Frequency of Binge Drinking: Daily or almost daily Financial Resource Strain: Low Risk (06/03/2024) Overall Financial Resource Strain (CARDIA) Difficulty of Paying Living Expenses: Not very hard Food Insecurity: No Food Insecurity (06/03/2024) Hunger Vital Sign Worried About Running Out of Food in the Last Year: Never true Ran Out of Food in the Last Year: Never true Transportation Needs: No Transportation Needs (06/02/2024) PRAPARE - Transportation Lack of Transportation (Medical): No Lack of Transportation (Non-Medical): No Physical Activity: Inactive (06/03/2024) Exercise Vital Sign Days of Exercise per Week: 0 days Minutes of Exercise per Session: 0 min Stress: Stress Concern Present (06/03/2024) [place] [employer]ational [employer] - Occupational Stress Questionnaire Feeling of Stress : To some extent Social Connections: Socially Isolated (05/08/2024) Social Connection and Isolation Panel [NHANES] Frequency of Communication with Friends and Family: Twice a week Frequency of Social Gatherings with Friends and Family: Never Attends Synagogue Services: Never Active Member of Clubs or Organizations: No Attends Club or Organization Meetings: Never Marital Status: Intimate Partner Violence: Not At Risk (06/03/2024) Humiliation, Afraid, Rape, and Kick questionnaire Fear of Current or Ex-Partner: No Emotionally Abused: No Physically Abused: No Sexually Abused: No Depression: None or minimal depression (05/08/2024) PHQ-9 PHQ-9 Score: 0 Housing Stability: Low Risk (06/02/2024) Housing Stability Vital Sign Unable to Pay for Housing in the Last Year: No Number of Times Moved in the Last Year: 0 Homeless in the Last Year: No Utilities: At Risk (05/08/2024) [facility] Utilities Threatened with loss of utilities: Yes Health Literacy: Not on file REVIEW OF SYSTEMS Review of Systems Constitutional: Negative for chills, decreased appetite, diaphoresis and malaise/fatigue. Cardiovascular: Negative for chest pain and palpitations. Respiratory: Negative for shortness of breath. Musculoskeletal: Negative for muscle cramps and myalgias. Gastrointestinal: Negative for abdominal pain, change in bowel habit, diarrhea, nausea and vomiting. Neurological: Positive for numbness, paresthesias and tremors. Psychiatric/Behavioral: Negative for depression, suicidal ideas and thoughts of violence. The patient is nervous/anxious. The patient does not have insomnia. EXAM Vitals Vitals: 06/02/24 1923 06/02/24 2250 06/03/24 0528 06/03/24 1040 BP: (!) 134/93 123/84 154/100 126/92 BP Location: Left arm Right arm Left arm Patient Position: Sitting Lying Pulse: 95 (!) 137 112 114 Resp: 18 20 16 16 Temp: 36.2 C (97.1 F) 36.6 C (97.9 F) 36.4 C (97.5 F) TempSrc: Temporal Temporal Temporal SpO2: 96% 96% 94% 94% Weight: Height: Physical Exam Vitals and nursing note reviewed. Constitutional: General: He is not in acute distress. Appearance: He is not ill-appearing or diaphoretic. HENT: Head: Normocephalic and atraumatic. Nose: Nose normal. No rhinorrhea. Mouth/Throat: Mouth: Mucous membranes are moist. Comments: Tongue fasciculations Eyes: Conjunctiva/sclera: Right eye: Right conjunctiva is injected. Left eye: Left conjunctiva is injected. Cardiovascular: Rate and Rhythm: Tachycardia present. Pulses: Normal pulses. Pulmonary: Effort: Pulmonary effort is normal. Musculoskeletal: General: Normal range of motion. Cervical back: Normal range of motion. Skin: General: Skin is warm and dry. Neurological: Mental Status: He is alert and oriented to person, place, and time. Motor: Tremor present. Psychiatric: Attention and Perception: Attention and perception normal. Mood and Affect: Mood is anxious. Speech: Speech normal. Behavior: Behavior normal. Behavior is cooperative. Thought Content: Thought content normal. Thought content does not include homicidal or suicidal ideation. Cognition and Memory: Cognition normal. Judgment: Judgment normal. IMAGING No results found. LABS Recent Results (from the past 48 hours) SARS-CoV-2 Antigen Collection Time: 06/02/24 6:31 PM Specimen: Nose; Swab Result Value Ref Range SARS-CoV-2 Antigen Negative Negative Comprehensive metabolic panel Collection Time: 06/02/24 6:34 PM Result Value Ref Range SODIUM 134 (L) 136 - 145 mmol/L POTASSIUM 4.2 3.5 - 5.1 mmol/L CHLORIDE 97 (L) 98 - 107 mmol/L CARBON DIOXIDE 23 22 - 29 mmol/L ANION GAP 14 (H) 3 - 13 mmol/L UREA NITROGEN 3 (L) 9 - 23 mg/dL CREATININE 0.59 (L) 0.72 - 1.25 mg/dL GLUCOSE 85 74 - 100 mg/dL CALCIUM 8.9 8.4 - 10.2 mg/dL AST (SGOT) 49 (H) <34 U/L ALT 44 (H) <40 U/L ALKALINE PHOSPHATASE 110 40 - 150 U/L ALBUMIN 3.6 3.5 - 5.0 g/dL BILIRUBIN, TOTAL 0.4 <1.2 mg/dL TOTAL PROTEIN 7.2 6.4 - 8.3 g/dL eGFR >90.0 >60.0 mL/min/1.73m*2 CBC Collection Time: 06/02/24 6:34 PM Result Value Ref Range Auto WBC 6.7 3.6 - 10.7 10*3/uL RBC 4.77 4.40 - 5.90 10*6/uL Hemoglobin 15.8 13.0 - 18.0 g/dL Hematocrit 45.6 40.0 - 52.0 % MCV 95.6 77.0 - 99.0 fL MCH 33.1 26.0 - 34.0 pg MCHC 34.6 30.5 - 36.0 % RDW 13.4 11.5 - 15.0 % Platelets 184 140 - 440 10*3/uL MPV 8.8 (L) 9.0 - 12.7 fL Magnesium Collection Time: 06/02/24 6:34 PM Result Value Ref Range MAGNESIUM 2.0 1.6 - 2.6 mg/dL Ethanol Collection Time: 06/02/24 6:34 PM Result Value Ref Range ETHANOL IN SER/PLAS 110 (H) <10 mg/dL Drug screen panel, emergency Collection Time: 06/02/24 7:29 PM Result Value Ref Range AMPHETAMINE SCREEN Negative BARBITURATES SCREEN Positive BENZODIAZEPINE SCREEN Negative COCAINE METAB. SCREEN Negative METHADONE SCREEN Negative OPIATES SCREEN Negative OXYCODONE SCREEN Negative PHENCYCLIDINE SCREEN Negative FENTANYL SCREEN, UR QUAL Negative MEDICATIONS Home Meds Current Outpatient Medications Medication Instructions albuterol 108 (90 Base) MCG/ACT inhaler 2 puffs, Inhalation, Every 6 hours PRN calcipotriene (Dovonex) 0.005 % cream Topical, 2 times daily clobetasol (Temovate) 0.05 % cream Topical, 2 times daily folic acid (FOLVITE) 1 mg, Oral, Daily gabapentin (NEURONTIN) 600 mg, Oral, 3 times daily melatonin 5 mg, Oral, Nightly Multiple Vitamins tablet 1 tablet, Oral, Daily naltrexone (DEPADE) 50 mg, Oral, Daily nicotine polacrilex (NICOTINE MINI) 4 mg, Mouth/Throat, Every 2 hour PRN pantoprazole (PROTONIX) 40 mg, Oral, Daily thiamine ((VITAMIN B-1)) 100 mg, Daily Thiamine Mononitrate (VITAMIN B1) 100 mg, Oral, Daily Scheduled Inpatient Meds clobetasol, , Topical, BID folic acid, 1 mg, Oral, Daily gabapentin, 600 mg, Oral, TID PHENobarbital, 64.8 mg, Oral, q6h thiamine, 100 mg, Oral, Daily PRN Inpatient Meds PRN medications: acetaminophen, albuterol, aluminum & magnesium hydroxide-simethicone, hydrALAZINE, hydrOXYzine pamoate, loperamide, LORazepam, magnesium hydroxide, nicotine polacrilex, ondansetron ODT, traZODone Continuous Inpatient Infusions ASSESSMENT & PLAN Alcohol use disorder, severe Counseled patient on biopsychosocial consequences of substance use. Encouraged professional chemical dependency treatment. Encouraged 12 step meeting attendance. Follow up plans for addiction management discussed with patient: Patient reporting he is to go to a 90 day rehab in [place], [place] on Saturday. Will discuss MAT with patient (naltrexone, Vivitrol). Alcohol withdrawal Last use of alcohol was on 06/02. Phenobarbital taper to manage alcohol withdrawal symptoms. 64.8 mg q 6 hours for today. CIWA scores per unit protocol. Thiamine 100 mg daily, folic acid 1 mg daily. PRN medications for withdrawal symptom management added. Encouraged to participate in all unit activities. Seizure precautions, fall precautions. Alcoholic peripheral neuropathy Start home Gabapentin 600 mg TID. Elevated liver enzymes Hx fatty liver Likely 2/2 alcohol use, no acute abdominal complaints Monitor liver enzymes. Disposition: Discharge anticipated in 3-5 days. This is pending: Resolution of withdrawal symptoms. Medical stabilization. Labs/tests/tasks to review: monitor with CMP. Consultants to coordinate care with: None. Cosigned by Jonatan Mckeon MD at 06/03/2024 1:48 PM EST Associated attestation - Jonatan Mckeon MD - 06/03/2024 1:48 PM EST I saw and evaluated the patient, participating in the laboy portions of the service. We reviewed the patient's medical record and test results. I personally spent a total 55 minutes in counseling and discussion with the patient and coordination of care. This included a face to face evaluation and physical examination, and documenting clinical information on the day of visit. I have reviewed the resident's note. I agree with the resident s findings and plan, with any additions or corrections listed below. Attempted to discuss his severe, recidivistic behavior and numerous admissions with him again in an effort to motivate him to seek sobriety May be able to give IM Vivitrol injection for MAT before discharge. CDT on 05/08/24 was 6.8% indicating chronic drinking. Would recommend repeat CDT in outpatient setting in 2-3 months to monitor alcohol use but he isn't committing to seeing me or any my colleagues in the outpatient setting [facility] 06-03-2024 Note [facility] 06-03-2024 History and physical note Images from the original note were not included. ADDICTION MEDICINE DETOX UNIT H&P Patient: Maria De Jesus Hogan Admit Date: 06/02/2024 Primary Care Physician: Lynda Rasheed MD HISTORY OF PRESENT ILLNESS Chief Complaint Patient presents with Alcohol Problem Pt here for detox. Last drink 30 minutes ago drank 3 tallboys normally has 6-9tallboys Maria De Jesus Hogan is a 58 y.o. year old male with a PMH of stroke, HTN, peripheral neuropathy, fatty liver, BHP, Lombardo's esophagus, GERD that was admitted for detox from alcohol. Maria De Jesus Hogan was recently admitted to the [facility] detox unit from 05/07 through 05/10. He admits to relapsing and drinking shortly after his discharge. He started by drinking 6 tall boy 8% beers per day. He blames this on his step-daughter, who was reportedly bringing alcohol into the household. He states that he kicked her out and has been slowly decreasing his alcohol intake to 3 beers per day. He discussed his alcohol intake with his wealth uncle in [place], [place] and his uncle agreed to bring him to [place] for rehabilitation. He is supposed to leave Saturday, with his , for a 90 day program, while his son will watch his house. Per ED documentation, he was supposed to start a new job on Saturday, but he states his uncle cleared this up. At the current time, he denies any symptoms of withdrawal outside of tremor and increased anxiety. He slept well and has an intact appetite. He has chronic peripheral neuropathy. He denies SI/HI/AVH. On admission, a urine drug screen was positive for barbiturates, and a serum alcohol level was 110. SUBSTANCE USE HISTORY Brief Substance Use Narrative Patient admits to drinking alcohol for the first time at age [age] and that it became regular to drink at age 22. His drinking did not become problematic until 12 years ago. His longest period of sobriety was 6 months. On average, he consumes 6-9 tall boy 24 ounce 8% beers per day. He also smokes 1-1.5 ppd of cigarettes since age 19. He denies other substance use but tried other stuff in the 80's. Current Substance Use Alcohol: Reports 3-6 tall boys per day. Amphetamines: Denies. Benzos: Denies. Cocaine: Denies. Hallucinogens: Denies. Marijuana: Denies. Nicotine: 1-1.5 ppd, attempting to cut back. Opioids: Denies. Treatment History Inpatient Rehab: Denies. Chem Dep IOP: Previously attended. Detoxifications: Has been on the detox unit and admitted medically for detox multiple times. 12 Step Meetings: Previous history of engagement. Medication Assisted Treatment: Has responded positively to naltrexone and possibly Vivitrol in the past. Consequences [] IVDA. [x] Blackouts related to substance use. [] History of withdrawal seizures. [] History of delirium tremens. [x] History of overdoses. [x] Legal consequences of substance use. Substance Use Disorder Criteria 2-3 = mild; 4-5 = moderate; 6 or >6 = severe substance use disorder [x] Taking substance in larger amounts and/or for longer than intended. [x] Wanting to cut down or quit but not being able to. [x] Spending a lot of time obtaining the substance. [x] Craving or a strong desire to use substance. [x] Repeatedly doesn't carry out major obligations due to substance use. [x] Using despite recurring social or interpersonal problems. [x] Reducing social, occupational, or recreational activities. [x] Recurrent use in physically hazardous situations. [x] Consistent use despite recurrent physical or psychological difficulties. [x] Tolerance (increased amounts to achieve intoxication or diminished effect). [x] Withdrawal syndrome or the substance is used to avoid withdrawal. REMAINING HISTORY Psychiatric History Current Psychiatrist: Denies Current Medications: Denies Diagnoses: Denies; per chart, anxiety and depression Previous Medication Trials: Denies Psychiatric Hospitalizations: Denies Previous Suicide Attempts: Denies Adverse Childhood Events: Denies Trauma History: Denies History of Head Injuries: Denies Past Medical 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) 11/28/2023 Alcohol withdrawal syndrome without complication (HCC) Alcohol withdrawal with inpatient treatment without complication (HCC) 01/20/2024 Alcohol withdrawal, uncomplicated (HCC) 08/31/2019 Alcohol withdrawal, with unspecified complication (HCC) 10/02/2019 Alcohol withdrawal, with unspecified complication (HCC) 10/02/2019 Alcoholic intoxication without complication (CMS/HCC) (HCC) 04/10/2024 Alcoholism (CMS/HCC) (HCC) Anxiety Apical lung nodule Arthritis Maria De Jesus Cerebral artery occlusion with cerebral infarction (HCC) Cerebrovascular disease Depression GERD (gastroesophageal reflux disease) Maria De Jesus Hypertension Insomnia Past Surgical History Past Surgical History: Procedure Laterality Date COLONOSCOPY 06/10/2020 EGD/Dr Madison/[facility] CYST REMOVAL face EGD (HISTORICAL) 07/23/2022 Dr. Estrella-[facility] SMALL INTESTINE SURGERY UPPER GASTROINTESTINAL ENDOSCOPY 09/27/2021 normal WISDOM TOOTH EXTRACTION Family History Family History Problem Relation Name Age of Onset Depression Sister Maria De Jesus Hogan Other ([id number]) Sister Maria De Jesus Hogan agoraphobia Arthritis Sister Maria De Jesus Hogan Cancer Mother Maria De Jesus Hogan colon rectal cancer; dx after age 50 Other ([id number]) Mother Maria De Jesus Hogan alcoholism Alcohol abuse Mother Maria De Jesus Hogan Stroke Mother Maria De Jesus Hogan Other ([id number]) Father Maria De Jesus Hogan h/o rheumatic fever, cardiac arrest due to bee sting Hypertension Father Maria De Jesus Hogna Social Drivers of Health Tobacco Use: High Risk (05/25/2024) Patient History Smoking Tobacco Use: Every Day Smokeless Tobacco Use: Never Passive Exposure: Past Alcohol Use: Alcohol Misuse (06/02/2024) AUDIT-C Frequency of Alcohol Consumption: 4 or more times a week Average Number of Drinks: 5 or 6 Frequency of Binge Drinking: Daily or almost daily Financial Resource Strain: Low Risk (06/03/2024) Overall Financial Resource Strain (CARDIA) Difficulty of Paying Living Expenses: Not very hard Food Insecurity: No Food Insecurity (06/03/2024) Hunger Vital Sign Worried About Running Out of Food in the Last Year: Never true Ran Out of Food in the Last Year: Never true Transportation Needs: No Transportation Needs (06/02/2024) PRAPARE - Transportation Lack of Transportation (Medical): No Lack of Transportation (Non-Medical): No Physical Activity: Inactive (06/03/2024) Exercise Vital Sign Days of Exercise per Week: 0 days Minutes of Exercise per Session: 0 min Stress: Stress Concern Present (06/03/2024) [place] [employer] - Occupational Stress Questionnaire Feeling of Stress : To some extent Social Connections: Socially Isolated (05/08/2024) Social Connection and Isolation Panel [NHANES] Frequency of Communication with Friends and Family: Twice a week Frequency of Social Gatherings with Friends and Family: Never Attends Synagogue Services: Never Active Member of Clubs or Organizations: No Attends Club or Organization Meetings: Never Marital Status: Intimate Partner Violence: Not At Risk (06/03/2024) Humiliation, Afraid, Rape, and Kick questionnaire Fear of Current or Ex-Partner: No Emotionally Abused: No Physically Abused: No Sexually Abused: No Depression: None or minimal depression (05/08/2024) PHQ-9 PHQ-9 Score: 0 Housing Stability: Low Risk (06/02/2024) Housing Stability Vital Sign Unable to Pay for Housing in the Last Year: No Number of Times Moved in the Last Year: 0 Homeless in the Last Year: No Utilities: At Risk (05/08/2024) [facility] Utilities Threatened with loss of utilities: Yes Health Literacy: Not on file REVIEW OF SYSTEMS Review of Systems Constitutional: Negative for chills, decreased appetite, diaphoresis and malaise/fatigue. Cardiovascular: Negative for chest pain and palpitations. Respiratory: Negative for shortness of breath. Musculoskeletal: Negative for muscle cramps and myalgias. Gastrointestinal: Negative for abdominal pain, change in bowel habit, diarrhea, nausea and vomiting. Neurological: Positive for numbness, paresthesias and tremors. Psychiatric/Behavioral: Negative for depression, suicidal ideas and thoughts of violence. The patient is nervous/anxious. The patient does not have insomnia. EXAM Vitals Vitals: 06/02/24 1923 06/02/24 2250 06/03/24 0528 06/03/24 1040 BP: (!) 134/93 123/84 154/100 126/92 BP Location: Left arm Right arm Left arm Patient Position: Sitting Lying Pulse: 95 (!) 137 112 114 Resp: 18 20 16 16 Temp: 36.2 C (97.1 F) 36.6 C (97.9 F) 36.4 C (97.5 F) TempSrc: Temporal Temporal Temporal SpO2: 96% 96% 94% 94% Weight: Height: Physical Exam Vitals and nursing note reviewed. Constitutional: General: He is not in acute distress. Appearance: He is not ill-appearing or diaphoretic. HENT: Head: Normocephalic and atraumatic. Nose: Nose normal. No rhinorrhea. Mouth/Throat: Mouth: Mucous membranes are moist. Comments: Tongue fasciculations Eyes: Conjunctiva/sclera: Right eye: Right conjunctiva is injected. Left eye: Left conjunctiva is injected. Cardiovascular: Rate and Rhythm: Tachycardia present. Pulses: Normal pulses. Pulmonary: Effort: Pulmonary effort is normal. Musculoskeletal: General: Normal range of motion. Cervical back: Normal range of motion. Skin: General: Skin is warm and dry. Neurological: Mental Status: He is alert and oriented to person, place, and time. Motor: Tremor present. Psychiatric: Attention and Perception: Attention and perception normal. Mood and Affect: Mood is anxious. Speech: Speech normal. Behavior: Behavior normal. Behavior is cooperative. Thought Content: Thought content normal. Thought content does not include homicidal or suicidal ideation. Cognition and Memory: Cognition normal. Judgment: Judgment normal. IMAGING No results found. LABS Recent Results (from the past 48 hours) SARS-CoV-2 Antigen Collection Time: 06/02/24 6:31 PM Specimen: Nose; Swab Result Value Ref Range SARS-CoV-2 Antigen Negative Negative Comprehensive metabolic panel Collection Time: 06/02/24 6:34 PM Result Value Ref Range SODIUM 134 (L) 136 - 145 mmol/L POTASSIUM 4.2 3.5 - 5.1 mmol/L CHLORIDE 97 (L) 98 - 107 mmol/L CARBON DIOXIDE 23 22 - 29 mmol/L ANION GAP 14 (H) 3 - 13 mmol/L UREA NITROGEN 3 (L) 9 - 23 mg/dL CREATININE 0.59 (L) 0.72 - 1.25 mg/dL GLUCOSE 85 74 - 100 mg/dL CALCIUM 8.9 8.4 - 10.2 mg/dL AST (SGOT) 49 (H) <34 U/L ALT 44 (H) <40 U/L ALKALINE PHOSPHATASE 110 40 - 150 U/L ALBUMIN 3.6 3.5 - 5.0 g/dL BILIRUBIN, TOTAL 0.4 <1.2 mg/dL TOTAL PROTEIN 7.2 6.4 - 8.3 g/dL eGFR >90.0 >60.0 mL/min/1.73m*2 CBC Collection Time: 06/02/24 6:34 PM Result Value Ref Range Auto WBC 6.7 3.6 - 10.7 10*3/uL RBC 4.77 4.40 - 5.90 10*6/uL Hemoglobin 15.8 13.0 - 18.0 g/dL Hematocrit 45.6 40.0 - 52.0 % MCV 95.6 77.0 - 99.0 fL MCH 33.1 26.0 - 34.0 pg MCHC 34.6 30.5 - 36.0 % RDW 13.4 11.5 - 15.0 % Platelets 184 140 - 440 10*3/uL MPV 8.8 (L) 9.0 - 12.7 fL Magnesium Collection Time: 06/02/24 6:34 PM Result Value Ref Range MAGNESIUM 2.0 1.6 - 2.6 mg/dL Ethanol Collection Time: 06/02/24 6:34 PM Result Value Ref Range ETHANOL IN SER/PLAS 110 (H) <10 mg/dL Drug screen panel, emergency Collection Time: 06/02/24 7:29 PM Result Value Ref Range AMPHETAMINE SCREEN Negative BARBITURATES SCREEN Positive BENZODIAZEPINE SCREEN Negative COCAINE METAB. SCREEN Negative METHADONE SCREEN Negative OPIATES SCREEN Negative OXYCODONE SCREEN Negative PHENCYCLIDINE SCREEN Negative FENTANYL SCREEN, UR QUAL Negative MEDICATIONS Home Meds Current Outpatient Medications Medication Instructions albuterol 108 (90 Base) MCG/ACT inhaler 2 puffs, Inhalation, Every 6 hours PRN calcipotriene (Dovonex) 0.005 % cream Topical, 2 times daily clobetasol (Temovate) 0.05 % cream Topical, 2 times daily folic acid (FOLVITE) 1 mg, Oral, Daily gabapentin (NEURONTIN) 600 mg, Oral, 3 times daily melatonin 5 mg, Oral, Nightly Multiple Vitamins tablet 1 tablet, Oral, Daily naltrexone (DEPADE) 50 mg, Oral, Daily nicotine polacrilex (NICOTINE MINI) 4 mg, Mouth/Throat, Every 2 hour PRN pantoprazole (PROTONIX) 40 mg, Oral, Daily thiamine ((VITAMIN B-1)) 100 mg, Daily Thiamine Mononitrate (VITAMIN B1) 100 mg, Oral, Daily Scheduled Inpatient Meds clobetasol, , Topical, BID folic acid, 1 mg, Oral, Daily gabapentin, 600 mg, Oral, TID PHENobarbital, 64.8 mg, Oral, q6h thiamine, 100 mg, Oral, Daily PRN Inpatient Meds PRN medications: acetaminophen, albuterol, aluminum & magnesium hydroxide-simethicone, hydrALAZINE, hydrOXYzine pamoate, loperamide, LORazepam, magnesium hydroxide, nicotine polacrilex, ondansetron ODT, traZODone Continuous Inpatient Infusions ASSESSMENT & PLAN Alcohol use disorder, severe Counseled patient on biopsychosocial consequences of substance use. Encouraged professional chemical dependency treatment. Encouraged 12 step meeting attendance. Follow up plans for addiction management discussed with patient: Patient reporting he is to go to a 90 day rehab in [place], [place] on Saturday. Will discuss MAT with patient (naltrexone, Vivitrol). Alcohol withdrawal Last use of alcohol was on 06/02. Phenobarbital taper to manage alcohol withdrawal symptoms. 64.8 mg q 6 hours for today. CIWA scores per unit protocol. Thiamine 100 mg daily, folic acid 1 mg daily. PRN medications for withdrawal symptom management added. Encouraged to participate in all unit activities. Seizure precautions, fall precautions. Alcoholic peripheral neuropathy Start home Gabapentin 600 mg TID. Elevated liver enzymes Hx fatty liver Likely 2/2 alcohol use, no acute abdominal complaints Monitor liver enzymes. Disposition: Discharge anticipated in 3-5 days. This is pending: Resolution of withdrawal symptoms. Medical stabilization. Labs/tests/tasks to review: monitor with CMP. Consultants to coordinate care with: None. Cosigned by Jonatan Mckeon MD at 06/03/2024 1:48 PM EST Associated attestation - Jonatan Mckeon MD - 06/03/2024 1:48 PM EST I saw and evaluated the patient, participating in the laboy portions of the service. We reviewed the patient's medical record and test results. I personally spent a total 55 minutes in counseling and discussion with the patient and coordination of care. This included a face to face evaluation and physical examination, and documenting clinical information on the day of visit. I have reviewed the resident's note. I agree with the resident s findings and plan, with any additions or corrections listed below. Attempted to discuss his severe, recidivistic behavior and numerous admissions with him again in an effort to motivate him to seek sobriety May be able to give IM Vivitrol injection for MAT before discharge. CDT on 05/08/24 was 6.8% indicating chronic drinking. Would recommend repeat CDT in outpatient setting in 2-3 months to monitor alcohol use but he isn't committing to seeing me or any my colleagues in the outpatient setting documented in this encounter [facility] 06-03-2024 Nurse Note Skin check was done - pt has some psoriasis related spots. Pt signed admission paperwork. Pt reports drinking 6 - 9 beers per day, but has recently lowered it to 3 beers per day. He reports his appetite is good. He is up and steady. He is A and O x 4. Nicotine lozenges given to pt as needed and Trazodone was given for sleep. Pt denies SI/HI/AVH. Pt is compliant with his medications. [facility] 06-02-2024 Emergency department Note Called report to Veronica @ [facility] 06-02-2024 Emergency department Note Called report to Veronica @ [facility] Pt normally drink 6-9 tall boys daily. Today pt only drank 3 and his last drink was about 5pm today. Pt last drink 30 minutes ago. Pt drank 3 tallboys today. Normally drinks 6-9 tallboys. Would like to get detoxed Emergency Department Encounter [facility] ED Patient: Maria De Jesus Hogan : 1965 Date of Evaluation: 06/02/2024 ED Supervising Physician: Catalino Diallo, I personally evaluated Maria De Jesus Hogan and made/approved the management plan and take responsibility for the patient management. This will serve as my Supervisory note and shared attestation. I did perform a substantive portion of the visit including all aspects of the Medical Decision Making. I wore appropriate PPE for the entirety of this encounter. In brief, Maria De Jesus Hogan is a 58 y.o. that presents to the emergency department requesting alcohol detox. Detox about a month ago and was sober for a couple of weeks before starting drinking again. Says that he withdrawals when he does not drink. Not having any physical complaints. Last drink was just before leaving to come here to the ED. Focused exam: Vital signs noted please see nurses notes. Well-developed patient sitting in the chair appears well. Normal respiratory pattern without conversational dyspnea or respiratory distress. No obvious musculoskeletal trauma. Moves all extremities equally well. Speech and mental status normal. No gross neurologic deficit. Abdomen is soft, non-tender, non-distended, no guarding or peritoneal signs. Brief ED course/MDM: Medically clear for psychiatric admission. Admitted to detox. Diagnostics interpreted by me: I personally discussed the patient's management with other clinicians: All diagnostic, treatment, and disposition decisions were made by myself in conjunction with the [facility]. For all further details of the patient's emergency department visit, please see their documentation. (Comment: Please note this report has been produced using speech recognition software and may contain errors related to that system including errors in grammar, punctuation, and spelling, as well as words and phrases that may be inappropriate. If there are any questions or concerns please feel free to contact the dictating provider for clarification.) Catalino Diallo DO [employer] Catalino Diallo DO 06/02/241824 EMERGENCY DEPARTMENT ENCOUNTER Pt Name: Maria De Jesus Hogan Birthdate 1965 Date of evaluation: 06/02/2024 ED Provider: JUAN Lang CNP This patient was seen in conjunction with Dr. Diallo CHIEF COMPLAINT Chief Complaint Patient presents with Alcohol Problem Pt here for detox. Last drink 30 minutes ago drank 3 tallboys normally has 6-9tallboys HISTORY OF PRESENT ILLNESS (Location/Symptom, Timing/Onset, Context/Setting, Quality, Duration, Modifying Factors, Severity) Note limiting factors. I wore appropriate PPE for the entirety of this encounter. HPI Maria De Jesus Hogan is a 58 y.o. who presents to the emergency department with chief complaint of questing alcohol detox last drink was walking into the emergency room. He went to detox May 07 through the , states he stayed sober for about 2-week started drinking again drank 3 tall bolus today drinks about 9 of them a day. He states he wants to do detox again because he starts a new job on Saturday and he wants to be ready for his new job. Nursing Notes were reviewed. Limitations to history: None Outside historians: None REVIEW OF SYSTEMS Review of Systems Constitutional: Negative for activity change, appetite change, chills and fever. HENT: Negative for congestion, nosebleeds, postnasal drip, sore throat and trouble swallowing. Eyes: Negative for pain and visual disturbance. Respiratory: Negative for cough and shortness of breath. Cardiovascular: Negative for chest pain. Gastrointestinal: Negative for abdominal pain, nausea and vomiting. Genitourinary: Negative for dysuria, flank pain, hematuria, penile discharge, scrotal swelling and testicular pain. Musculoskeletal: Negative for arthralgias, back pain and myalgias. Skin: Negative for rash and wound. Neurological: Positive for tremors. Negative for dizziness, syncope, weakness and light-headedness. Psychiatric/Behavioral: Negative for agitation and confusion. All other systems reviewed and are negative. Pertinent positives and negatives as per HPI. 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) 11/28/2023 Alcohol withdrawal syndrome without complication (HCC) Alcohol withdrawal with inpatient treatment without complication (HCC) 01/20/2024 Alcohol withdrawal, uncomplicated (HCC) 08/31/2019 Alcohol withdrawal, with unspecified complication (HCC) 10/02/2019 Alcohol withdrawal, with unspecified complication (HCC) 10/02/2019 Alcoholic intoxication without complication (CMS/HCC) (HCC) 04/10/2024 Alcoholism ([facility]/HCC) (HCC) Anxiety Arthritis Maria De Jesus Cerebral artery occlusion with cerebral infarction (HCC) Cerebrovascular disease Depression GERD (gastroesophageal reflux disease) Maria De Jesus Hypertension Insomnia SURGICAL HISTORY Past Surgical History: Procedure Laterality Date COLONOSCOPY 06/10/2020 EGD/Dr Madison/[facility] CYST REMOVAL face EGD (HISTORICAL) 07/23/2022 Dr. Estrella-[facility] SMALL INTESTINE SURGERY UPPER GASTROINTESTINAL ENDOSCOPY 09/27/2021 normal WISDOM TOOTH EXTRACTION CURRENT MEDICATIONS Previous Medications ALBUTEROL 108 (90 BASE) MCG/ACT INHALER Inhale 2 puffs every 6 hours as needed for wheezing or shortness of breath. CALCIPOTRIENE (DOVONEX) 0.005 % CREAM Apply topically 2 times daily. CLOBETASOL (TEMOVATE) 0.05 % CREAM Apply topically 2 times daily. FOLIC ACID (FOLVITE) 1 MG TABLET Take 1 tablet (1 mg) by mouth daily. GABAPENTIN (NEURONTIN) 300 MG CAPSULE Take 2 capsules (600 mg) by mouth 3 times daily. MELATONIN 5 MG TABLET Take 1 tablet (5 mg) by mouth Nightly. MULTIPLE VITAMINS TABLET Take 1 tablet by mouth daily. NALTREXONE (DEPADE) 50 MG TABLET Take 1 tablet (50 mg) by mouth daily. NICOTINE POLACRILEX (NICOTINE MINI) 4 MG LOZENGE Dissolve 1 lozenge (4 mg) in the mouth every 2 hours as needed for smoking cessation. PANTOPRAZOLE (PROTONIX) 40 MG EC TABLET Take 1 tablet (40 mg) by mouth daily. THIAMINE (,VITAMIN B-1,) 100 MG TABLET Take 100 mg by mouth daily. THIAMINE MONONITRATE (VITAMIN B1) 100 MG TABLET Take 1 tablet (100 mg) by mouth daily. ALLERGIES Bee venom, Nickel, and Tramadol FAMILY HISTORY Family History Problem Relation Name Age of Onset Depression Sister Maria De Jesus Hogan Other ([id number]) Sister Maria De Jesus Hogan agoraphobia Arthritis Sister Maria De Jesus Hogan Cancer Mother Maria De Jesus Hogan colon rectal cancer; dx after age 50 Other ([id number]) Mother Maria De Jesus Hogan alcoholism Alcohol abuse Mother Maria De Jesus Hogan Stroke Mother Maria De Jesus Hogan Other ([id number]) Father Maria De Jesus Hogan h/o rheumatic fever, cardiac arrest due to bee sting Hypertension Father Maria De Jesus Hogan SOCIAL HISTORY Social History Socioeconomic History Marital status: Tobacco Use Smoking status: Every Day Current packs/day: 2.00 Average packs/day: 2.0 packs/day for 38.6 years (77.3 ttl pk-yrs) Types: Cigarettes Start date: 10/10/1985 Passive exposure: Past Smokeless tobacco: Never Tobacco comments: Started at 19, 2 PPD, 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 05/09/2024 Vaping Use Vaping status: Some Days Substance and Sexual Activity Alcohol use: Yes Comment: Detox home for a week 0 drinks 02/17/23, 6 tall boys/ daily 11/28/23 Drug use: No Sexual activity: Yes Partners: Female control/protection: Other Comment: live with Social Drivers of Health Financial Resource Strain: Low Risk (05/08/2024) Overall Financial Resource Strain (CARDIA) Difficulty of Paying Living Expenses: Not very hard Food Insecurity: No Food Insecurity (05/08/2024) Hunger Vital Sign Worried About Running Out of Food in the Last Year: Never true Ran Out of Food in the Last Year: Never true Transportation Needs: No Transportation Needs (05/08/2024) PRAPARE - Transportation Lack of Transportation (Medical): No Lack of Transportation (Non-Medical): No Physical Activity: Inactive (05/08/2024) Exercise Vital Sign Days of Exercise per Week: 0 days Minutes of Exercise per Session: 0 min Stress: Stress Concern Present (05/08/2024) [place] [employer] - Occupational Stress Questionnaire Feeling of Stress : To some extent Social Connections: Socially Isolated (05/08/2024) Social Connection and Isolation Panel [NHANES] Frequency of Communication with Friends and Family: Twice a week Frequency of Social Gatherings with Friends and Family: Never Attends Synagogue Services: Never Active Member of Clubs or Organizations: No Attends Club or Organization Meetings: Never Marital Status: Intimate Partner Violence: Not At Risk (05/08/2024) Humiliation, Afraid, Rape, and Kick questionnaire Fear of Current or Ex-Partner: No Emotionally Abused: No Physically Abused: No Sexually Abused: No Housing Stability: Low Risk (05/08/2024) Housing Stability Vital Sign Unable to Pay for Housing in the Last Year: No Number of Times Moved in the Last Year: 0 Homeless in the Last Year: No SCREENINGS PHYSICAL EXAM ED Triage Vitals [06/02/24 1754] Temp Heart Rate Resp BP 36.9 C (98.5 F) (!) 112 18 (!) 152/91 SpO2 Temp Source Heart Rate Source Patient Position 95 % Temporal Monitor -- BP Location FiO2 (%) -- -- Physical Exam Vitals and nursing note reviewed. Constitutional: General: He is not in acute distress. Appearance: Normal appearance. He is normal weight. He is not ill-appearing or toxic-appearing. HENT: Head: Normocephalic and atraumatic. Right Ear: External ear normal. Left Ear: External ear normal. Mouth/Throat: Mouth: Mucous membranes are moist. Pharynx: Oropharynx is clear. Eyes: Extraocular Movements: Extraocular movements intact. Conjunctiva/sclera: Conjunctivae normal. Pupils: Pupils are equal, round, and reactive to light. Cardiovascular: Rate and Rhythm: Normal rate and regular rhythm. Pulses: Normal pulses. Heart sounds: Normal heart sounds. No murmur heard. Pulmonary: Effort: Pulmonary effort is normal. No respiratory distress. Breath sounds: Normal breath sounds. No stridor. No wheezing or rhonchi. Abdominal: Comments: The abdomen is soft, nondistended and nontender. There is no rebound tenderness or guarding. Bowel sounds are normal. Musculoskeletal: General: No swelling, tenderness, deformity or signs of injury. Normal range of motion. Cervical back: Normal range of motion and neck supple. No rigidity or tenderness. Lymphadenopathy: Cervical: No cervical adenopathy. Skin: General: Skin is warm and dry. Capillary Refill: Capillary refill takes less than 2 seconds. Coloration: Skin is not jaundiced or pale. Findings: No bruising or erythema. Neurological: General: No focal deficit present. Mental Status: He is alert and oriented to person, place, and time. Mental status is at baseline. Cranial Nerves: No cranial nerve deficit. Sensory: No sensory deficit. Psychiatric: Mood and Affect: Mood normal. DIAGNOSTIC RESULTS Procedures/EKG: EKG was reviewed by myself. Physician EKG interpretation can be found in [facility] RADIOLOGY (Per Emergency Physician): Interpretation per the Radiologist below, if available at the time of this note: No orders to display ED BEDSIDE ULTRASOUND: Performed by ED Physician - none LABS: Labs Reviewed SARS-COV-2 ANTIGEN COMPREHENSIVE METABOLIC PANEL CBC (HEMOGRAM) MAGNESIUM ETHANOL DRUGS OF ABUSE All other labs were within normal range or not returned as of this dictation. EMERGENCY DEPARTMENT COURSE and DIFFERENTIAL DIAGNOSIS/MDM: Vitals: Vitals: 06/02/24 1754 06/02/24 1828 06/02/24 1830 BP: (!) 152/91 (!) 124/90 Pulse: (!) 112 105 Resp: 18 Temp: 36.9 C (98.5 F) TempSrc: Temporal SpO2: 95% Weight: 99.8 kg (220 lb) Height: 1.778 m (5' 10) Diagnoses as of 06/02/24 1928 Alcohol use disorder Alcohol withdrawal with inpatient treatment, uncomplicated (HCC) The patient presented with chief complaint of with chief complaint of questing alcohol detox last drink was walking into the emergency room. He went to detox May 07 through the , states he stayed sober for about 2-week started drinking again drank 3 tall bolus today drinks about 9 of them a day. He states he wants to do detox again because he starts a new job on Saturday and he wants to be ready for his new job.. The differential diagnosis associated with this patient's presentation includes alcohol use disorder. Our workup consisted of ordering/reviewing: CBC, CMP, drug screen, ethanol, COVID antigen . Diagnostic tests considered but not performed: None To aid in management, I performed an independent interpretation of none. I also reviewed external records from [facility]. I discussed their care with Admitting team Dr. Mckeon, drink 3 tall boys prior to coming in so he looks better than he normally would he was hypertensive tachycardic on arrival he states every time he oneyda up he gets tremors and diaphoretic after discussion with detox will medically screen him and admit him. Consideration for escalation of care with: Admission/observation alcohol detox. The patient will be Admitted. Patient is in agreement with this plan. Medications thiamine (Vitamin B1) tablet 100 mg (100 mg Oral Given 06/02/241835) folic acid (Folvite) tablet 1 mg (1 mg Oral Given 06/02/241835) LORazepam (Ativan) tablet 1 mg (1 mg Oral Given 06/02/241835) Or LORazepam (Ativan) injection 1 mg ( IntraVENous See Alternative 06/02/241835) Or LORazepam (Ativan) tablet 2 mg ( Oral See Alternative 06/02/241835) Or LORazepam (Ativan) injection 2 mg ( IntraVENous See Alternative 06/02/241835) Or LORazepam (Ativan) tablet 3 mg ( Oral See Alternative 06/02/241835) Or LORazepam (Ativan) injection 3 mg ( IntraVENous See Alternative 06/02/241835) Or LORazepam (Ativan) tablet 4 mg ( Oral See Alternative 06/02/241835) Or LORazepam (Ativan) injection 4 mg ( IntraVENous See Alternative 06/02/241835) PHENobarbital tablet 97.2 mg (97.2 mg Oral Given 06/02/241835) REVAL: CRITICAL CARE TIME None CONSULTS: None PROCEDURES: Unless otherwise noted below, none Procedures Patients symptoms are consistent with sepsis, severe sepsis, or septic shock (If yes use .sepsiscoremeasure): no FINAL IMPRESSION 1. Alcohol use disorder DISPOSITION Admit 06/02/2024 06:38:37 PM PATIENT REFERRED TO: No follow-up provider specified. DISCHARGE MEDICATIONS: New Prescriptions No medications on file (Comment: Please note this report has been produced using speech recognition software and may contain errors related to that system including errors in grammar, punctuation, and spelling, as well as words and phrases that may be inappropriate. If there are any questions or concerns please feel free to contact the dictating provider for clarification.) JUAN Lang CNP (electronically signed) Emergency Medicine Provider JUAN Lang CNP 06/02/24 1838 Cosigned by Catalino Diallo DO at 06/03/2024 8:01 PM EST documented in this encounter [facility] 06-02-2024 Emergency department Note Pt normally drink 6-9 tall boys daily. Today pt only drank 3 and his last drink was about 5pm today. [facility] 06-02-2024 Emergency department Note Pt last drink 30 minutes ago. Pt drank 3 tallboys today. Normally drinks 6-9 tallboys. Would like to get detoxed [facility] 06-02-2024 Physician Emergency department Note Emergency Department Encounter [facility] ED Patient: Maria De Jesus Hogan : 1965 Date of Evaluation: 06/02/2024 ED Supervising Physician: Catalino Diallo DO I personally evaluated Maria De Jesus Hogan and made/approved the management plan and take responsibility for the patient management. This will serve as my Supervisory note and shared attestation. I did perform a substantive portion of the visit including all aspects of the Medical Decision Making. I wore appropriate PPE for the entirety of this encounter. In brief, Maria De Jesus Hogan is a 58 y.o. that presents to the emergency department requesting alcohol detox. Detox about a month ago and was sober for a couple of weeks before starting drinking again. Says that he withdrawals when he does not drink. Not having any physical complaints. Last drink was just before leaving to come here to the ED. Focused exam: Vital signs noted please see nurses notes. Well-developed patient sitting in the chair appears well. Normal respiratory pattern without conversational dyspnea or respiratory distress. No obvious musculoskeletal trauma. Moves all extremities equally well. Speech and mental status normal. No gross neurologic deficit. Abdomen is soft, non-tender, non-distended, no guarding or peritoneal signs. Brief ED course/MDM: Medically clear for psychiatric admission. Admitted to detox. Diagnostics interpreted by me: I personally discussed the patient's management with other clinicians: All diagnostic, treatment, and disposition decisions were made by myself in conjunction with the [facility]. For all further details of the patient's emergency department visit, please see their documentation. (Comment: Please note this report has been produced using speech recognition software and may contain errors related to that system including errors in grammar, punctuation, and spelling, as well as words and phrases that may be inappropriate. If there are any questions or concerns please feel free to contact the dictating provider for clarification.) Catalino Diallo DO [employer] Catalino Diallo DO 06/02/24 1824 [place] Phone: 06-02-2024 Physician Emergency department Note EMERGENCY DEPARTMENT ENCOUNTER Pt Name: Maria De Jesus Hogan Birthdate 1965 Date of evaluation: 06/02/2024 ED Provider: Shelly Clarke APRN - [facility] This patient was seen in conjunction with Dr. Diallo CHIEF COMPLAINT Chief Complaint Patient presents with Alcohol Problem Pt here for detox. Last drink 30 minutes ago drank 3 tallboys normally has 6-9tallboys HISTORY OF PRESENT ILLNESS (Location/Symptom, Timing/Onset, Context/Setting, Quality, Duration, Modifying Factors, Severity) Note limiting factors. I wore appropriate PPE for the entirety of this encounter. HPI Maria De Jesus Hogan is a 58 y.o. who presents to the emergency department with chief complaint of questing alcohol detox last drink was walking into the emergency room. He went to detox May 07 through the , states he stayed sober for about 2-week started drinking again drank 3 tall bolus today drinks about 9 of them a day. He states he wants to do detox again because he starts a new job on Saturday and he wants to be ready for his new job. Nursing Notes were reviewed. Limitations to history: None Outside historians: None REVIEW OF SYSTEMS Review of Systems Constitutional: Negative for activity change, appetite change, chills and fever. HENT: Negative for congestion, nosebleeds, postnasal drip, sore throat and trouble swallowing. Eyes: Negative for pain and visual disturbance. Respiratory: Negative for cough and shortness of breath. Cardiovascular: Negative for chest pain. Gastrointestinal: Negative for abdominal pain, nausea and vomiting. Genitourinary: Negative for dysuria, flank pain, hematuria, penile discharge, scrotal swelling and testicular pain. Musculoskeletal: Negative for arthralgias, back pain and myalgias. Skin: Negative for rash and wound. Neurological: Positive for tremors. Negative for dizziness, syncope, weakness and light-headedness. Psychiatric/Behavioral: Negative for agitation and confusion. All other systems reviewed and are negative. Pertinent positives and negatives as per HPI. 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) 11/28/2023 Alcohol withdrawal syndrome without complication (HCC) Alcohol withdrawal with inpatient treatment without complication (HCC) 01/20/2024 Alcohol withdrawal, uncomplicated (HCC) 08/31/2019 Alcohol withdrawal, with unspecified complication (HCC) 10/02/2019 Alcohol withdrawal, with unspecified complication (HCC) 10/02/2019 Alcoholic intoxication without complication (CMS/HCC) (HCC) 04/10/2024 Alcoholism ([facility]/HCC) (HCC) Anxiety Arthritis Maria De Jesus Cerebral artery occlusion with cerebral infarction (HCC) Cerebrovascular disease Depression GERD (gastroesophageal reflux disease) Maria De Jesus Hypertension Insomnia SURGICAL HISTORY Past Surgical History: Procedure Laterality Date COLONOSCOPY 06/10/2020 EGD/Dr Madison/[facility]ST REMOVAL face EGD (HISTORICAL) 07/23/2022 Dr. Estrella-[facility] SMALL INTESTINE SURGERY UPPER GASTROINTESTINAL ENDOSCOPY 09/27/2021 normal WISDOM TOOTH EXTRACTION CURRENT MEDICATIONS Previous Medications ALBUTEROL 108 (90 BASE) MCG/ACT INHALER Inhale 2 puffs every 6 hours as needed for wheezing or shortness of breath. CALCIPOTRIENE (DOVONEX) 0.005 % CREAM Apply topically 2 times daily. CLOBETASOL (TEMOVATE) 0.05 % CREAM Apply topically 2 times daily. FOLIC ACID (FOLVITE) 1 MG TABLET Take 1 tablet (1 mg) by mouth daily. GABAPENTIN (NEURONTIN) 300 MG CAPSULE Take 2 capsules (600 mg) by mouth 3 times daily. MELATONIN 5 MG TABLET Take 1 tablet (5 mg) by mouth Nightly. MULTIPLE VITAMINS TABLET Take 1 tablet by mouth daily. NALTREXONE (DEPADE) 50 MG TABLET Take 1 tablet (50 mg) by mouth daily. NICOTINE POLACRILEX (NICOTINE MINI) 4 MG LOZENGE Dissolve 1 lozenge (4 mg) in the mouth every 2 hours as needed for smoking cessation. PANTOPRAZOLE (PROTONIX) 40 MG EC TABLET Take 1 tablet (40 mg) by mouth daily. THIAMINE (,VITAMIN B-1,) 100 MG TABLET Take 100 mg by mouth daily. THIAMINE MONONITRATE (VITAMIN B1) 100 MG TABLET Take 1 tablet (100 mg) by mouth daily. ALLERGIES Bee venom, Nickel, and Tramadol FAMILY HISTORY Family History Problem Relation Name Age of Onset Depression Sister Maria De Jesus Hogan Other ([id number]) Sister Maria De Jesus Hogan agoraphobia Arthritis Sister Maria De Jesus Hogan Cancer Mother Maria De Jesus Hogan colon rectal cancer; dx after age 50 Other ([id number]) Mother Maria De Jesus Hogan alcoholism Alcohol abuse Mother Maria De Jesus Hogan Stroke Mother Maria De Jesus Hogan Other ([id number]) Father Maria De Jesus Hogan h/o rheumatic fever, cardiac arrest due to bee sting Hypertension Father Maria De Jesus Hogan SOCIAL HISTORY Social History Socioeconomic History Marital status: Tobacco Use Smoking status: Every Day Current packs/day: 2.00 Average packs/day: 2.0 packs/day for 38.6 years (77.3 ttl pk-yrs) Types: Cigarettes Start date: 10/10/1985 Passive exposure: Past Smokeless tobacco: Never Tobacco comments: Started at 19, 2 PPD, 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 05/09/2024 Vaping Use Vaping status: Some Days Substance and Sexual Activity Alcohol use: Yes Comment: Detox home for a week 0 drinks 02/17/23, 6 tall boys/ daily 11/28/23 Drug use: No Sexual activity: Yes Partners: Female control/protection: Other Comment: live with Social Drivers of Health Financial Resource Strain: Low Risk (05/08/2024) Overall Financial Resource Strain (CARDIA) Difficulty of Paying Living Expenses: Not very hard Food Insecurity: No Food Insecurity (05/08/2024) Hunger Vital Sign Worried About Running Out of Food in the Last Year: Never true Ran Out of Food in the Last Year: Never true Transportation Needs: No Transportation Needs (05/08/2024) PRAPARE - Transportation Lack of Transportation (Medical): No Lack of Transportation (Non-Medical): No Physical Activity: Inactive (05/08/2024) Exercise Vital Sign Days of Exercise per Week: 0 days Minutes of Exercise per Session: 0 min Stress: Stress Concern Present (05/08/2024) [place] [employer] - Occupational Stress Questionnaire Feeling of Stress : To some extent Social Connections: Socially Isolated (05/08/2024) Social Connection and Isolation Panel [NHANES] Frequency of Communication with Friends and Family: Twice a week Frequency of Social Gatherings with Friends and Family: Never Attends Synagogue Services: Never Active Member of Clubs or Organizations: No Attends Club or Organization Meetings: Never Marital Status: Intimate Partner Violence: Not At Risk (05/08/2024) Humiliation, Afraid, Rape, and Kick questionnaire Fear of Current or Ex-Partner: No Emotionally Abused: No Physically Abused: No Sexually Abused: No Housing Stability: Low Risk (05/08/2024) Housing Stability Vital Sign Unable to Pay for Housing in the Last Year: No Number of Times Moved in the Last Year: 0 Homeless in the Last Year: No SCREENINGS PHYSICAL EXAM ED Triage Vitals [06/02/24 1754] Temp Heart Rate Resp BP 36.9 C (98.5 F) (!) 112 18 (!) 152/91 SpO2 Temp Source Heart Rate Source Patient Position 95 % Temporal Monitor -- BP Location FiO2 (%) -- -- Physical Exam Vitals and nursing note reviewed. Constitutional: General: He is not in acute distress. Appearance: Normal appearance. He is normal weight. He is not ill-appearing or toxic-appearing. HENT: Head: Normocephalic and atraumatic. Right Ear: External ear normal. Left Ear: External ear normal. Mouth/Throat: Mouth: Mucous membranes are moist. Pharynx: Oropharynx is clear. Eyes: Extraocular Movements: Extraocular movements intact. Conjunctiva/sclera: Conjunctivae normal. Pupils: Pupils are equal, round, and reactive to light. Cardiovascular: Rate and Rhythm: Normal rate and regular rhythm. Pulses: Normal pulses. Heart sounds: Normal heart sounds. No murmur heard. Pulmonary: Effort: Pulmonary effort is normal. No respiratory distress. Breath sounds: Normal breath sounds. No stridor. No wheezing or rhonchi. Abdominal: Comments: The abdomen is soft, nondistended and nontender. There is no rebound tenderness or guarding. Bowel sounds are normal. Musculoskeletal: General: No swelling, tenderness, deformity or signs of injury. Normal range of motion. Cervical back: Normal range of motion and neck supple. No rigidity or tenderness. Lymphadenopathy: Cervical: No cervical adenopathy. Skin: General: Skin is warm and dry. Capillary Refill: Capillary refill takes less than 2 seconds. Coloration: Skin is not jaundiced or pale. Findings: No bruising or erythema. Neurological: General: No focal deficit present. Mental Status: He is alert and oriented to person, place, and time. Mental status is at baseline. Cranial Nerves: No cranial nerve deficit. Sensory: No sensory deficit. Psychiatric: Mood and Affect: Mood normal. DIAGNOSTIC RESULTS Procedures/EKG: EKG was reviewed by myself. Physician EKG interpretation can be found in [facility] RADIOLOGY (Per Emergency Physician): Interpretation per the Radiologist below, if available at the time of this note: No orders to display ED BEDSIDE ULTRASOUND: Performed by ED Physician - none LABS: Labs Reviewed SARS-COV-2 ANTIGEN COMPREHENSIVE METABOLIC PANEL CBC (HEMOGRAM) MAGNESIUM ETHANOL DRUGS OF ABUSE All other labs were within normal range or not returned as of this dictation. EMERGENCY DEPARTMENT COURSE and DIFFERENTIAL DIAGNOSIS/MDM: Vitals: Vitals: 06/02/24 1754 06/02/24 1828 06/02/24 183 BP: (!) 152/91 (!) 124/90 Pulse: (!) 112 105 Resp: 18 Temp: 36.9 C (98.5 F) TempSrc: Temporal SpO2: 95% Weight: 99.8 kg (220 lb) Height: 1.778 m (5' 10) Diagnoses as of 06/02/241927 Alcohol use disorder Alcohol withdrawal with inpatient treatment, uncomplicated (HCC) The patient presented with chief complaint of with chief complaint of questing alcohol detox last drink was walking into the emergency room. He went to detox May 07 through the , states he stayed sober for about 2-week started drinking again drank 3 tall bolus today drinks about 9 of them a day. He states he wants to do detox again because he starts a new job on Saturday and he wants to be ready for his new job.. The differential diagnosis associated with this patient's presentation includes alcohol use disorder. Our workup consisted of ordering/reviewing: CBC, CMP, drug screen, ethanol, COVID antigen . Diagnostic tests considered but not performed: None To aid in management, I performed an independent interpretation of none. I also reviewed external records from [facility]. I discussed their care with Admitting team Dr. Mckeon, drink 3 tall boys prior to coming in so he looks better than he normally would he was hypertensive tachycardic on arrival he states every time he oneyda up he gets tremors and diaphoretic after discussion with detox will medically screen him and admit him. Consideration for escalation of care with: Admission/observation alcohol detox. The patient will be Admitted. Patient is in agreement with this plan. Medications thiamine (Vitamin B1) tablet 100 mg (100 mg Oral Given 06/02/241835) folic acid (Folvite) tablet 1 mg (1 mg Oral Given 06/02/241835) LORazepam (Ativan) tablet 1 mg (1 mg Oral Given 06/02/241835) Or LORazepam (Ativan) injection 1 mg ( IntraVENous See Alternative 06/02/241835) Or LORazepam (Ativan) tablet 2 mg ( Oral See Alternative 06/02/241835) Or LORazepam (Ativan) injection 2 mg ( IntraVENous See Alternative 06/02/241835) Or LORazepam (Ativan) tablet 3 mg ( Oral See Alternative 06/02/241835) Or LORazepam (Ativan) injection 3 mg ( IntraVENous See Alternative 06/02/241835) Or LORazepam (Ativan) tablet 4 mg ( Oral See Alternative 06/02/241835) Or LORazepam (Ativan) injection 4 mg ( IntraVENous See Alternative 06/02/241835) PHENobarbital tablet 97.2 mg (97.2 mg Oral Given 06/02/241835) REVAL: CRITICAL CARE TIME None CONSULTS: None PROCEDURES: Unless otherwise noted below, none Procedures Patients symptoms are consistent with sepsis, severe sepsis, or septic shock (If yes use .sepsiscoremeasure): no FINAL IMPRESSION 1. Alcohol use disorder DISPOSITION Admit 06/02/2024 06:38:37 PM PATIENT REFERRED TO: No follow-up provider specified. DISCHARGE MEDICATIONS: New Prescriptions No medications on file (Comment: Please note this report has been produced using speech recognition software and may contain errors related to that system including errors in grammar, punctuation, and spelling, as well as words and phrases that may be inappropriate. If there are any questions or concerns please feel free to contact the dictating provider for clarification.) JUAN Lang CNP (electronically signed) Emergency Medicine Provider JUAN Lang CNP 06/02/241837 Cosigned by Catalino Diallo DO at 06/03/2024 8:01 PM EST [place] Phone: 06-02-2024 Telephone encounter Note Recent Visits Date Type Provider Dept 05/20/24 Office Visit Lynda Rasheed MD [facility] [place] 02/05/24 Office Visit Lynda Rasheed MD [facility] Showing recent visits within past 365 days and meeting all other requirements Future Appointments Date Type Provider Dept 06/16/24 [facility] appointments within next 90 days and meeting all other requirements Requested Prescriptions Pending Prescriptions Disp Refills clobetasol (Temovate) 0.05 % cream 60 g 3 Sig: Apply topically 2 times daily. Provider: Lynda Rasheed MD Verified pharmacy: yes Verified day(s) supplied: yes Verified refill(s) needed (previous prescription showing no refills in chart): Yes Have you received any controlled medications from any other provider? No Overdue for visit: No If yes - patient scheduled? Yes Most recent labs completed in chart? N/A None [facility] 06-02-2024 Miscellaneous Notes Recent Visits Date Type Provider Dept 05/20/24 Office Visit Lynda Rasheed MD [facility] 02/05/24 Office Visit Lynda Rasheed MD [facility] Showing recent visits within past 365 days and meeting all other requirements Future Appointments Date Type Provider Dept 06/16/24 Appointment Lynda Rasheed MD [facility] Showing future appointments within next 90 days and meeting all other requirements Requested Prescriptions Pending Prescriptions Disp Refills clobetasol (Temovate) 0.05 % cream 60 g 3 Sig: Apply topically 2 times daily. Provider: Lynda Rasheed MD Verified pharmacy: yes Verified day(s) supplied: yes Verified refill(s) needed (previous prescription showing no refills in chart): Yes Have you received any controlled medications from any other provider? No Overdue for visit: No If yes - patient scheduled? Yes Most recent labs completed in chart? N/A None documented in this encounter [facility] 06-02-2024 Telephone encounter Note Recent Visits Date Type Provider Dept 05/20/24 Office Visit Lynda Rasheed MD [facility] 02/05/24 Office Visit Lynda Rasheed MD [facility] Showing recent visits within past 365 days and meeting all other requirements Future Appointments Date Type Provider Dept 06/16/24 Appointment Lynda Rasheed MD [facility] Showing future appointments within next 90 days and meeting all other requirements Requested Prescriptions Pending Prescriptions Disp Refills calcipotriene (Dovonex) 0.005 % cream 60 g 3 Sig: Apply topically 2 times daily. Provider: Lynda Rasheed MD Verified pharmacy: yes Verified day(s) supplied: yes Verified refill(s) needed (previous prescription showing no refills in chart): Yes Have you received any controlled medications from any other provider? No Overdue for visit: No If yes - patient scheduled? Yes Most recent labs completed in chart? N/A None [facility] 06-02-2024 Miscellaneous Notes Recent Visits Date Type Provider Dept 05/20/24 Office Visit Lynda Rasheed MD [facility] 02/05/24 Office Visit Lynda Rasheed MD [facility] Showing recent visits within past 365 days and meeting all other requirements Future Appointments Date Type Provider Dept 06/16/24 Appointment Lynda Rasheed MD [facility] Showing future appointments within next 90 days and meeting all other requirements Requested Prescriptions Pending Prescriptions Disp Refills calcipotriene (Dovonex) 0.005 % cream 60 g 3 Sig: Apply topically 2 times daily. Provider: Lynda Rasheed MD Verified pharmacy: yes Verified day(s) supplied: yes Verified refill(s) needed (previous prescription showing no refills in chart): Yes Have you received any controlled medications from any other provider? No Overdue for visit: No If yes - patient scheduled? Yes Most recent labs completed in chart? N/A None documented in this encounter [facility] 05-26-2024 Note My Chart messaged th e patient letting him know he was referred for smoking cessation counseling. Gave contact information, will provide follow up. [facility] 05-25-2024 Emergency department Note Pt was seen standing in his room and closed the curtain. [facility] 05-25-2024 Emergency department Note Pt was seen standing in his room and closed the curtain. EMERGENCY DEPARTMENT ENCOUNTER Pt Name: Maria De Jesus Hogan Birthdate 1965 Date of evaluation: 05/25/2024 ED Provider: Goyo Melara MD CHIEF COMPLAINT Chief Complaint Patient presents with Fall Head Injury Alcohol Intoxication HISTORY OF PRESENT ILLNESS (Location/Symptom, Timing/Onset, Context/Setting, Quality, Duration, Modifying Factors, Severity) Note limiting factors. I wore appropriate PPE for the entirety of this encounter. HPI Maria De Jesus Hogan is a 58 y.o. who presents to the emergency department with a fall down 8 stairs, drinks alcohol daily, was intoxicated, hit the front of his head, he says he may have lost consciousness but not sure. Complains of a slight headache, no nausea or vomiting, not amnestic to the event. Denies any neck pain or pain elsewhere. Nursing Notes were reviewed. 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) 11/28/2023 Alcohol withdrawal syndrome without complication (HCC) Alcohol withdrawal with inpatient treatment without complication (HCC) 01/20/2024 Alcohol withdrawal, uncomplicated (HCC) 08/31/2019 Alcohol withdrawal, with unspecified complication (HCC) 10/02/2019 Alcohol withdrawal, with unspecified complication (HCC) 10/02/2019 Alcoholic intoxication without complication (CMS/HCC) (HCC) 04/10/2024 Alcoholism (CMS/HCC) (HCC) Anxiety Arthritis Maria De Jesus Cerebral artery occlusion with cerebral infarction (HCC) Cerebrovascular disease Depression GERD (gastroesophageal reflux disease) Maria De Jesus Hypertension Insomnia SURGICAL HISTORY Past Surgical History: Procedure Laterality Date COLONOSCOPY 06/10/2020 EGD/Dr Madison/AMANDA CYST REMOVAL face EGD (HISTORICAL) 07/23/2022 Dr. Estrella-[facility] SMALL INTESTINE SURGERY UPPER GASTROINTESTINAL ENDOSCOPY 09/27/2021 normal WISDOM TOOTH EXTRACTION CURRENT MEDICATIONS Previous Medications ALBUTEROL 108 (90 BASE) MCG/ACT INHALER Inhale 2 puffs every 6 hours as needed for wheezing or shortness of breath. CALCIPOTRIENE (DOVONEX) 0.005 % CREAM Apply topically 2 times daily. CLOBETASOL (TEMOVATE) 0.05 % CREAM Apply topically 2 times daily. FOLIC ACID (FOLVITE) 1 MG TABLET Take 1 tablet (1 mg) by mouth daily. GABAPENTIN (NEURONTIN) 300 MG CAPSULE Take 2 capsules (600 mg) by mouth 3 times daily. MELATONIN 5 MG TABLET Take 1 tablet (5 mg) by mouth Nightly. MULTIPLE VITAMINS TABLET Take 1 tablet by mouth daily. NALTREXONE (DEPADE) 50 MG TABLET Take 1 tablet (50 mg) by mouth daily. NICOTINE POLACRILEX (NICOTINE MINI) 4 MG LOZENGE Dissolve 1 lozenge (4 mg) in the mouth every 2 hours as needed for smoking cessation. PANTOPRAZOLE (PROTONIX) 40 MG EC TABLET Take 1 tablet (40 mg) by mouth daily. THIAMINE (,VITAMIN B-1,) 100 MG TABLET Take 100 mg by mouth daily. THIAMINE MONONITRATE (VITAMIN B1) 100 MG TABLET Take 1 tablet (100 mg) by mouth daily. ALLERGIES Bee venom, Nickel, and Tramadol FAMILY HISTORY Family History Problem Relation Name Age of Onset Depression Sister Maria De Jesus Hogan Other ([id number]) Sister Maria De Jesus Hogan agoraphobia Arthritis Sister Maria De Jesus Hogan Cancer Mother Maria De Jesus Hogan colon rectal cancer; dx after age 50 Other ([id number]) Mother Maria De Jesus Hogan alcoholism Alcohol abuse Mother Maria De Jesus Hogan Stroke Mother Maria De Jesus Hogan Other ([phone]) Father Maria De Jesus Hogan h/o rheumatic fever, cardiac arrest due to bee sting Hypertension Father Maria De Jesus Hogan SOCIAL HISTORY Social History Socioeconomic History Marital status: Tobacco Use Smoking status: Every Day Current packs/day: 2.00 Average packs/day: 2.0 packs/day for 38.6 years (77.2 ttl pk-yrs) Types: Cigarettes Start date: 10/10/1985 Passive exposure: Past Smokeless tobacco: Never Tobacco comments: Started at 19, 2 PPD, 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 05/09/2024 Vaping Use Vaping status: Some Days Substance and Sexual Activity Alcohol use: Yes Comment: Detox home for a week 0 drinks 02/17/23, 6 tall boys/ daily 11/28/23 Drug use: No Sexual activity: Yes Partners: Female control/protection: Other Comment: live with Social Drivers of Health Financial Resource Strain: Low Risk (05/08/2024) Overall Financial Resource Strain (CARDIA) Difficulty of Paying Living Expenses: Not very hard Food Insecurity: No Food Insecurity (05/08/2024) Hunger Vital Sign Worried About Running Out of Food in the Last Year: Never true Ran Out of Food in the Last Year: Never true Transportation Needs: No Transportation Needs (05/08/2024) PRAPARE - Transportation Lack of Transportation (Medical): No Lack of Transportation (Non-Medical): No Physical Activity: Inactive (05/08/2024) Exercise Vital Sign Days of Exercise per Week: 0 days Minutes of Exercise per Session: 0 min Stress: Stress Concern Present (05/08/2024) [place] [employer] - Occupational Stress Questionnaire Feeling of Stress : To some extent Social Connections: Socially Isolated (05/08/2024) Social Connection and Isolation Panel [NHANES] Frequency of Communication with Friends and Family: Twice a week Frequency of Social Gatherings with Friends and Family: Never Attends Synagogue Services: Never Active Member of Clubs or Organizations: No Attends Club or Organization Meetings: Never Marital Status: Intimate Partner Violence: Not At Risk (05/08/2024) Humiliation, Afraid, Rape, and Kick questionnaire Fear of Current or Ex-Partner: No Emotionally Abused: No Physically Abused: No Sexually Abused: No Housing Stability: Low Risk (05/08/2024) Housing Stability Vital Sign Unable to Pay for Housing in the Last Year: No Number of Times Moved in the Last Year: 0 Homeless in the Last Year: No PHYSICAL EXAM ED Triage Vitals [05/25/24 1546] Temp Heart Rate Resp BP 36.4 C (97.5 F) (!) 114 18 (!) 129/104 SpO2 Temp Source Heart Rate Source Patient Position 93 % Tympanic Monitor -- BP Location FiO2 (%) -- -- Physical Exam No visible evidence of trauma, no C-spine tenderness palpation, no visible hematoma. DIAGNOSTIC RESULTS RADIOLOGY (Per Emergency Physician): Interpretation per the Radiologist below, if available at the time of this note: CT cervical spine wo IV contrast Final Result No CT evidence of an acute intracranial abnormality. No evidence of acute cervical spine fracture. Degenerative changes as discussed. Anatomic Variant: None. Assume 7 cervical vertebrae with counting from the craniocervical junction. Report Dictated on Electronically Signed By: Cezar Smith MD Electronically Signed Date/Time: 05/25/2024 4:[address] head wo IV contrast Final Result No CT evidence of an acute intracranial abnormality. No evidence of acute cervical spine fracture. Degenerative changes as discussed. Anatomic Variant: None. Assume 7 cervical vertebrae with counting from the craniocervical junction. Report Dictated on Electronically Signed By: Cezar Smith MD Electronically Signed Date/Time: 05/25/2024 4:39 PM EST LABS: Labs Reviewed - No data to display All other labs were within normal range or not returned as of this dictation. EMERGENCY DEPARTMENT COURSE and DIFFERENTIAL DIAGNOSIS/MDM: Vitals: Vitals: 05/25/24 1546 05/25/24 1550 BP: (!) 129/104 (!) 113/94 Pulse: (!) 114 Resp: 18 Temp: 36.4 C (97.5 F) TempSrc: Tympanic SpO2: 93% Weight: 104 kg (230 lb) Height: 1.803 m (5' 11) Medications - No data to display SCREENINGS [place] Coma Scale Best Eye Response: Spontaneous Best Verbal Response: Oriented Best Motor Response: Follows commands [place] Coma Scale Score: 15 MDM elements: The patient presented with chief complaint of after falling hitting head with intoxication, unclear whether he lost consciousness, has a headache, no other symptoms. The differential diagnosis associated with this patient's presentation includes in no visible evidence of trauma on exam. Our workup consisted of ordering/reviewing: Intracranial hemorrhage, contusion, intoxication. To aid in management, I performed an independent interpretation of CT scan(s) interpreted by me shows no acute intracranial hemorrhage or C-spine fractures. The patient will be Discharged. Patient is in agreement with this plan. PROCEDURES: Unless otherwise noted below, none Procedures CRITICAL CARE TIME None FINAL IMPRESSION 1. Closed head injury, initial encounter 2. Alcoholic intoxication without complication ([facility]/HCC) ([facility]) DISPOSITION Discharge 05/25/2024 04:57:48 PM PATIENT REFERRED TO: Lynda Rasheed MD [address] [facility] [address] As needed DISCHARGE MEDICATIONS: New Prescriptions No medications on file (Comment: Please note this report has been produced using speech recognition software and may contain errors related to that system including errors in grammar, punctuation, and spelling, as well as words and phrases that may be inappropriate. If there are any questions or concerns please feel free to contact the dictating provider for clarification.) Goyo Melara MD (electronically signed) Emergency Medicine Provider Goyo Melara MD 05/25/24 [id number] Patient to room 7 with c/o a fall down steps today, and hitting his head. Patient has been drinking alcohol today and reports he has drank 3 tall boys today. V/S obtained call light within reach. documented in this encounter [facility] 05-25-2024 Emergency department Triage note Patient to room 7 with c/o a fall down steps today, and hitting his head. Patient has been drinking alcohol today and reports he has drank 3 tall boys today. V/S obtained call light within reach. [facility] 05-25-2024 Physician Emergency department Note EMERGENCY DEPARTMENT ENCOUNTER Pt Name: Maria De Jesus Hogan Birthdate 1965 Date of evaluation: 05/25/2024 ED Provider: Goyo Melara MD CHIEF COMPLAINT Chief Complaint Patient presents with Fall Head Injury Alcohol Intoxication HISTORY OF PRESENT ILLNESS (Location/Symptom, Timing/Onset, Context/Setting, Quality, Duration, Modifying Factors, Severity) Note limiting factors. I wore appropriate PPE for the entirety of this encounter. HPI Maria De Jesus Hogan is a 58 y.o. who presents to the emergency department with a fall down 8 stairs, drinks alcohol daily, was intoxicated, hit the front of his head, he says he may have lost consciousness but not sure. Complains of a slight headache, no nausea or vomiting, not amnestic to the event. Denies any neck pain or pain elsewhere. Nursing Notes were reviewed. 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) 11/28/2023 Alcohol withdrawal syndrome without complication (HCC) Alcohol withdrawal with inpatient treatment without complication (HCC) 01/20/2024 Alcohol withdrawal, uncomplicated (HCC) 08/31/2019 Alcohol withdrawal, with unspecified complication (HCC) 10/02/2019 Alcohol withdrawal, with unspecified complication (HCC) 10/02/2019 Alcoholic intoxication without complication (CMS/HCC) (HCC) 04/10/2024 Alcoholism (CMS/HCC) (HCC) Anxiety Arthritis Maria De Jesus Cerebral artery occlusion with cerebral infarction (HCC) Cerebrovascular disease Depression GERD (gastroesophageal reflux disease) Maria De Jesus Hypertension Insomnia SURGICAL HISTORY Past Surgical History: Procedure Laterality Date COLONOSCOPY 06/10/2020 EGD/Dr Madison/Janis CYST REMOVAL face EGD (HISTORICAL) 07/23/2022 Dr. Estrella-[facility] SMALL INTESTINE SURGERY UPPER GASTROINTESTINAL ENDOSCOPY 09/27/2021 normal WISDOM TOOTH EXTRACTION CURRENT MEDICATIONS Previous Medications ALBUTEROL 108 (90 BASE) MCG/ACT INHALER Inhale 2 puffs every 6 hours as needed for wheezing or shortness of breath. CALCIPOTRIENE (DOVONEX) 0.005 % CREAM Apply topically 2 times daily. CLOBETASOL (TEMOVATE) 0.05 % CREAM Apply topically 2 times daily. FOLIC ACID (FOLVITE) 1 MG TABLET Take 1 tablet (1 mg) by mouth daily. GABAPENTIN (NEURONTIN) 300 MG CAPSULE Take 2 capsules (600 mg) by mouth 3 times daily. MELATONIN 5 MG TABLET Take 1 tablet (5 mg) by mouth Nightly. MULTIPLE VITAMINS TABLET Take 1 tablet by mouth daily. NALTREXONE (DEPADE) 50 MG TABLET Take 1 tablet (50 mg) by mouth daily. NICOTINE POLACRILEX (NICOTINE MINI) 4 MG LOZENGE Dissolve 1 lozenge (4 mg) in the mouth every 2 hours as needed for smoking cessation. PANTOPRAZOLE (PROTONIX) 40 MG EC TABLET Take 1 tablet (40 mg) by mouth daily. THIAMINE (,VITAMIN B-1,) 100 MG TABLET Take 100 mg by mouth daily. THIAMINE MONONITRATE (VITAMIN B1) 100 MG TABLET Take 1 tablet (100 mg) by mouth daily. ALLERGIES Bee venom, Nickel, and Tramadol FAMILY HISTORY Family History Problem Relation Name Age of Onset Depression Sister Maria De Jesus Hogan Other ([phone]) Sister Maria De Jesus Hogan agoraphobia Arthritis Sister Maria De Jesus Hogan Cancer Mother Maria De Jesus Hogan colon rectal cancer; dx after age 50 Other ([id number]) Mother Maria De Jesus Hogan alcoholism Alcohol abuse Mother Maria De Jesus Hogan Stroke Mother Maria De Jesus Hogan Other ([phone]) Father Maria De Jesus Hogan h/o rheumatic fever, cardiac arrest due to bee sting Hypertension Father Maria De Jesus Hogan SOCIAL HISTORY Social History Socioeconomic History Marital status: Tobacco Use Smoking status: Every Day Current packs/day: 2.00 Average packs/day: 2.0 packs/day for 38.6 years (77.2 ttl pk-yrs) Types: Cigarettes Start date: 10/10/1985 Passive exposure: Past Smokeless tobacco: Never Tobacco comments: Started at 19, 2 PPD, 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 05/09/2024 Vaping Use Vaping status: Some Days Substance and Sexual Activity Alcohol use: Yes Comment: Detox home for a week 0 drinks 02/17/23, 6 tall boys/ daily 11/28/23 Drug use: No Sexual activity: Yes Partners: Female control/protection: Other Comment: live with Social Drivers of Health Financial Resource Strain: Low Risk (05/08/2024) Overall Financial Resource Strain (CARDIA) Difficulty of Paying Living Expenses: Not very hard Food Insecurity: No Food Insecurity (05/08/2024) Hunger Vital Sign Worried About Running Out of Food in the Last Year: Never true Ran Out of Food in the Last Year: Never true Transportation Needs: No Transportation Needs (05/08/2024) PRAPARE - Transportation Lack of Transportation (Medical): No Lack of Transportation (Non-Medical): No Physical Activity: Inactive (05/08/2024) Exercise Vital Sign Days of Exercise per Week: 0 days Minutes of Exercise per Session: 0 min Stress: Stress Concern Present (05/08/2024) [place] [employer] - Occupational Stress Questionnaire Feeling of Stress : To some extent Social Connections: Socially Isolated (05/08/2024) Social Connection and Isolation Panel [NHANES] Frequency of Communication with Friends and Family: Twice a week Frequency of Social Gatherings with Friends and Family: Never Attends Synagogue Services: Never Active Member of Clubs or Organizations: No Attends Club or Organization Meetings: Never Marital Status: Intimate Partner Violence: Not At Risk (05/08/2024) Humiliation, Afraid, Rape, and Kick questionnaire Fear of Current or Ex-Partner: No Emotionally Abused: No Physically Abused: No Sexually Abused: No Housing Stability: Low Risk (05/08/2024) Housing Stability Vital Sign Unable to Pay for Housing in the Last Year: No Number of Times Moved in the Last Year: 0 Homeless in the Last Year: No PHYSICAL EXAM ED Triage Vitals [05/25/24 1546] Temp Heart Rate Resp BP 36.4 C (97.5 F) (!) 114 18 (!) 129/104 SpO2 Temp Source Heart Rate Source Patient Position 93 % Tympanic Monitor -- BP Location FiO2 (%) -- -- Physical Exam No visible evidence of trauma, no C-spine tenderness palpation, no visible hematoma. DIAGNOSTIC RESULTS RADIOLOGY (Per Emergency Physician): Interpretation per the Radiologist below, if available at the time of this note: CT cervical spine wo IV contrast Final Result No CT evidence of an acute intracranial abnormality. No evidence of acute cervical spine fracture. Degenerative changes as discussed. Anatomic Variant: None. Assume 7 cervical vertebrae with counting from the craniocervical junction. Report Dictated on Electronically Signed By: Cezar Smith MD Electronically Signed Date/Time: 05/25/2024 4:[address] head wo IV contrast Final Result No CT evidence of an acute intracranial abnormality. No evidence of acute cervical spine fracture. Degenerative changes as discussed. Anatomic Variant: None. Assume 7 cervical vertebrae with counting from the craniocervical junction. Report Dictated on Electronically Signed By: Cezar Smith MD Electronically Signed Date/Time: 05/25/2024 4:39 PM EST LABS: Labs Reviewed - No data to display All other labs were within normal range or not returned as of this dictation. EMERGENCY DEPARTMENT COURSE and DIFFERENTIAL DIAGNOSIS/MDM: Vitals: Vitals: 05/25/24 1546 05/25/24 1550 BP: (!) 129/104 (!) 113/94 Pulse: (!) 114 Resp: 18 Temp: 36.4 C (97.5 F) TempSrc: Tympanic SpO2: 93% Weight: 104 kg (230 lb) Height: 1.803 m (5' 11) Medications - No data to display SCREENINGS [place] Coma Scale Best Eye Response: Spontaneous Best Verbal Response: Oriented Best Motor Response: Follows commands [place] Coma Scale Score: 15 MDM elements: The patient presented with chief complaint of after falling hitting head with intoxication, unclear whether he lost consciousness, has a headache, no other symptoms. The differential diagnosis associated with this patient's presentation includes in no visible evidence of trauma on exam. Our workup consisted of ordering/reviewing: Intracranial hemorrhage, contusion, intoxication. To aid in management, I performed an independent interpretation of CT scan(s) interpreted by me shows no acute intracranial hemorrhage or C-spine fractures. The patient will be Discharged. Patient is in agreement with this plan. PROCEDURES: Unless otherwise noted below, none Procedures CRITICAL CARE TIME None FINAL IMPRESSION 1. Closed head injury, initial encounter 2. Alcoholic intoxication without complication ([facility]) ([facility]) DISPOSITION Discharge 05/25/2024 04:57:48 PM PATIENT REFERRED TO: Lynda Rasheed MD [address] [place] [address] [address] [facility] [id number] As needed DISCHARGE MEDICATIONS: New Prescriptions No medications on file (Comment: Please note this report has been produced using speech recognition software and may contain errors related to that system including errors in grammar, punctuation, and spelling, as well as words and phrases that may be inappropriate. If there are any questions or concerns please feel free to contact the dictating provider for clarification.) Goyo Melara MD (electronically signed) Emergency Medicine Provider Goyo Melara MD 05/25/24 1659 [facility] 05-23-2024 Telephone encounter Note We have been unable to reach your patient to schedule their testing. Test Name: TTE 2nd attempt, my chart message, TE to office, cancel request on 05/20/24. JS 1st attempt LVM on 08.10.22 SDS [facility] 05-23-2024 Miscellaneous Notes We have been unable to reach your patient to schedule their testing. Test Name: TTE 2nd attempt, my chart message, TE to office, cancel request on 05/20/24. JS 1st attempt LVM on 23 SDS documented in this encounter [facility] 05-21-2024 Note Referral received fo r ED, frequency. Reached out to pt, [facility] answer[facility] Telephone encounter Note Referral received for ED, frequency. Reached out to pt, no answer. [facility] 05-21-2024 Miscellaneous Notes Referral received for ED, frequency. Reached out to pt, no answer. [facility] documented in this encounter [facility] 05-20-2024 History of Present illness Narrative Transition of Care Note HPI @PATIENTNAME@ presents for [id number] visit @TODAYSDATE@ for follow up fromhospitalization for alochol withdrawal symptoms elevated liver enzymes.. Initial discharge date: 05/10/24. Interim history: Is a 58-year-old male with a past medical history of alcohol use disorder peripheral neuropathy on gabapentin fatty liver that was admitted for alcohol withdrawal to the hospital. He had been admitted prior to further alcohol withdrawal as well. Per records from investigation specialist physician he was detoxed but did not follow through any chemical treatment dependencies and relapsed right away. He currently states he is has not drunk any alcohol since discharge. Also he has a history of elevated liver enzymes they state most likely secondary to his alcohol. Was scheduled for IOP it looks like he did not make that appointment he states he did not have a ride. However he has never seen GI it for this he has not had a colonoscopy and has some noted Lombardo's esophagitis. He also states that he has had no abdominal pain nausea vomiting he has been trying to stop smoking. He has been using nicotine lozenges. He feels medicine has not helped or him the patches not help for him. He has decreased somewhat. His CT scan did show lung nodules. We discussed seeing a developmental behavioral physician. He has not been coughing up any blood. States for the last several weeks he has had some issues with urinary frequency no burning no sign of blood. He has had some ED issues he is requesting to see a urologist. of Post Discharge communication contact: 05/13/2024 Communication within 2 business dates of Initial Discharge(via direct contact, phone, or electronic OR 2 documented attempts unsuccessful: [x] No [] Yes Persons at visit: Patient Activity: activity as tolerated Any medication or treatment changes since post-hospitalization phone call? [x] No [] Yes Any further education needed on medications/treatment plan? [x] No [] Yes All Active Meds in Chart - may or may not be currently taking post-hospital Current Outpatient Medications Medication Sig Dispense Refill calcipotriene (Dovonex) 0.005 % cream Apply topically 2 times daily. 60 g 3 clobetasol (Temovate) 0.05 % cream Apply topically 2 times daily. 60 g 3 folic acid (Folvite) 1 MG tablet Take 1 tablet (1 mg) by mouth daily. 30 tablet 11 melatonin 5 MG tablet Take 1 tablet (5 mg) by mouth Nightly. 90 tablet 1 Multiple Vitamins tablet Take 1 tablet by mouth daily. 90 tablet 1 naltrexone (Depade) 50 MG tablet Take 1 tablet (50 mg) by mouth daily. 30 tablet 2 nicotine polacrilex (Nicotine Mini) 4 MG lozenge Dissolve 1 lozenge (4 mg) in the mouth every 2 hours as needed for smoking cessation. 100 lozenge 3 pantoprazole (ProtoNix) 40 MG EC tablet Take 1 tablet (40 mg) by mouth daily. 90 tablet 1 thiamine (,Vitamin B-1,) 100 MG tablet Take 100 mg by mouth daily. Thiamine Mononitrate (Vitamin B1) 100 MG tablet Take 1 tablet (100 mg) by mouth daily. 90 tablet 1 albuterol 108 (90 Base) MCG/ACT inhaler Inhale 2 puffs every 6 hours as needed for wheezing or shortness of breath. 3 each 1 gabapentin (Neurontin) 300 MG capsule Take 2 capsules (600 mg) by mouth 3 times daily. 180 capsule 3 No current facility-administered medications for this visit. Current Medications (meds in record marked as taking per CAROL phone call) @TAKMED@ Medication Reconciliation Provider has reviewed medication record and it has been modified as necessary to accurately depict currentmedications since hospitalization. Maria De Jesus has been instructed on these changes. See transitional care telephone note. Review of Systems Review of Systems Constitutional: Negative. Negative for activity change, appetite change and fever. HENT: Negative. Negative for congestion. Eyes: Negative. Negative for discharge. Respiratory: Negative. Negative for chest tightness. Cardiovascular: Negative. Gastrointestinal: Negative. Endocrine: Negative. Negative for cold intolerance. Genitourinary: Negative for difficulty urinating. Musculoskeletal: Negative. Neurological: Negative. Negative for dizziness, facial asymmetry and headaches. Hematological: Negative. 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) 11/28/2023 Alcohol withdrawal syndrome without complication (HCC) Alcohol withdrawal with inpatient treatment without complication (HCC) 01/20/2024 Alcohol withdrawal, uncomplicated (HCC) 08/31/2019 Alcohol withdrawal, with unspecified complication (HCC) 10/02/2019 Alcohol withdrawal, with unspecified complication (HCC) 10/02/2019 Alcoholic intoxication without complication (CMS/HCC) (HCC) 04/10/2024 Alcoholism (CMS/HCC) (HCC) Anxiety Arthritis Maria De Jesus Cerebral artery occlusion with cerebral infarction (HCC) Cerebrovascular disease Depression GERD (gastroesophageal reflux disease) Maria De Jesus Hypertension Insomnia Social History Socioeconomic History Marital status: Spouse name: Not on file Number of children: Not on file Years of education: Not on file Highest education level: Not on file Occupational History Not on file Tobacco Use Smoking status: Every Day Current packs/day: 2.00 Average packs/day: 2.0 packs/day for 38.6 years (77.2 ttl pk-yrs) Types: Cigarettes Start date: 10/10/1985 Passive exposure: Past Smokeless tobacco: Never Tobacco comments: Started at 19, 2 PPD, 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 05/09/2024 Vaping Use Vaping status: Some Days Substance and Sexual Activity Alcohol use: Yes Comment: Detox home for a week 0 drinks 02/17/23, 6 tall boys/ daily 11/28/23 Drug use: No Sexual activity: Yes Partners: Female control/protection: Other Comment: live with Other Topics Concern Not on file Social History Narrative Not on file Social Drivers of Health Financial Resource Strain: Low Risk (05/08/2024) Overall Financial Resource Strain (CARDIA) Difficulty of Paying Living Expenses: Not very hard Food Insecurity: No Food Insecurity (05/08/2024) Hunger Vital Sign Worried About Running Out of Food in the Last Year: Never true Ran Out of Food in the Last Year: Never true Transportation Needs: No Transportation Needs (05/08/2024) PRAPARE - Transportation Lack of Transportation (Medical): No Lack of Transportation (Non-Medical): No Physical Activity: Inactive (05/08/2024) Exercise Vital Sign Days of Exercise per Week: 0 days Minutes of Exercise per Session: 0 min Stress: Stress Concern Present (05/08/2024) [place] [employer] Occup[employer] - Occupational Stress Questionnaire Feeling of Stress : To some extent Social Connections: Socially Isolated (05/08/2024) Social Connection and Isolation Panel [NHANES] Frequency of Communication with Friends and Family: Twice a week Frequency of Social Gatherings with Friends and Family: Never Attends Synagogue Services: Never Active Member of Clubs or Organizations: No Attends Club or Organization Meetings: Never Marital Status: Intimate Partner Violence: Not At Risk (05/08/2024) Humiliation, Afraid, Rape, and Kick questionnaire Fear of Current or Ex-Partner: No Emotionally Abused: No Physically Abused: No Sexually Abused: No Housing Stability: Low Risk (05/08/2024) Housing Stability Vital Sign Unable to Pay for Housing in the Last Year: No Number of Times Moved in the Last Year: 0 Homeless in the Last Year: No EXAM Physical Exam Vitals and nursing note reviewed. Constitutional: Appearance: Normal appearance. HENT: Head: Normocephalic and atraumatic. Nose: No congestion or rhinorrhea. Mouth/Throat: Mouth: Mucous membranes are moist. Pharynx: Oropharynx is clear. No posterior oropharyngeal erythema. Eyes: Extraocular Movements: Extraocular movements intact. Conjunctiva/sclera: Conjunctivae normal. Pupils: Pupils are equal, round, and reactive to light. Cardiovascular: Pulses: Normal pulses. Heart sounds: Normal heart sounds. No murmur heard. Pulmonary: Effort: Pulmonary effort is normal. No respiratory distress. Breath sounds: Normal breath sounds. No wheezing. Abdominal: General: Abdomen is flat. Bowel sounds are normal. Palpations: Abdomen is soft. Tenderness: There is no abdominal tenderness. Musculoskeletal: General: No swelling. Cervical back: Normal range of motion. Skin: General: Skin is warm and dry. Neurological: General: No focal deficit present. Mental Status: He is alert and oriented to person, place, and time. Mental status is at baseline. Psychiatric: Mood and Affect: Mood normal. Diagnosis/Plan Maria De Jesus was seen today for hospital follow-up. Diagnoses and all orders for this visit: Alcohol abuse (Primary) - Ambulatory referral to Addiction Intensive Outpatient Program; Future Psoriasiform seborrheic dermatitis - gabapentin (Neurontin) 300 MG capsule; Take 2 capsules (600 mg) by mouth 3 times daily. - albuterol 108 (90 Base) MCG/ACT inhaler; Inhale 2 puffs every 6 hours as needed for wheezing or shortness of breath. - Ambulatory referral to Addiction Intensive Outpatient Program; Future - CBC auto differential; Future - CBC auto differential Elevated liver enzymes - gabapentin (Neurontin) 300 MG capsule; Take 2 capsules (600 mg) by mouth 3 times daily. - albuterol 108 (90 Base) MCG/ACT inhaler; Inhale 2 puffs every 6 hours as needed for wheezing or shortness of breath. - Ambulatory referral to Addiction Intensive Outpatient Program; Future - CBC auto differential; Future - CBC auto differential - [facility] Gastroenterology; Future Screening for colon cancer - Cancel: [facility] Gastro[facility]ology; Future - [facility] Gastroenterology; Future Elevated LFTs - Cancel: [facility] Gastro[facility]ology; Future - US abdomen complete; Future - [facility] Gastroenterology; Future ED (erectile dysfunction) of non-organic origin - Urinalysis with reflex microscopic (clean catch); Future - Urine culture (clean catch); Future - [facility] Urology; Future - Urinalysis with reflex microscopic (clean catch) - Urine culture (clean catch) Urinary frequency - Urinalysis with reflex microscopic (clean catch); Future - Urine culture (clean catch); Future - [facility] Urology; Future - Urinalysis with reflex microscopic (clean catch) - Urine culture (clean catch) Pulmonary nodule - [facility] Pulmonary/Pulmonology; Future Lombardo esophagus with esophagitis - [facility] Gastroenterology; Future Diagnostic Tests performed in hospital: Outstanding results or need for additional testing/tratment/referral resources: [x] No [] Yes Requested/reviewed: Yes Disease Education: Patient is aware to stop smoking. Patient refuses any further medication is taking nicotine lozenges. Also recommend to stop drinking any alcohol I referred patient to the IOP program. He understands the trauma total effects of alcohol. Home Health Care : None Note: CPT Coding - [x] Moderate Complexity: seen within 7-14 business days (92573) [] Severe Complexity: seen within 7 business days (20410) documented in this encounter [facility] 05-14-2024 History of Present illness Narrative Missed Session Unexcused Pt did not call or show for Scheduled Assessment on this date. documented in this encounter [facility] 05-10-2024 Nurse Note Escorted off unit [facility] 05-10-2024 Nurse Note Escorted off unit Called for ride, on way. Given survey and belongings. to be here in 20. Denies si/hi. Discussed risk of using any etoh, street drugs, meds not prescribed or as, discussed increased risk or od or if uses following detox. Discussed discharge, IOP, stated understood and signed. Discussed red book, meetings. Given sdoh papers and discussed. Discussed script and where sent. Discussed risk etoh with naltrexone. Asking to be discharged, stated needs to go home today. States will call IB himself. Discussed with Dr Thrasher, and he will discharge. Discussed this morning meetings, what his plans are for super bowl, IOP. 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 States he and plan on doing more together for health, walks etc. Discussed leisure activity. Patient is up and steady, withdrawn to room for majority of shift. Pt is cooperative and med compliant. Pt denies SI/HI/AVH. Pt encouraged to notify staff for any questions and concerns. Patient received asleep in room at shift change and all safety measures in place. Patient slept most of day. Patient 1ST day of Detox. Patient eating and drinking well. Patient is flushed and lio. Patient compliant with all medications @-shift. Blood drawn and sent to lab at 1400 and pending results. Patient with stable mood and compliant. CIWA 6 and 6. Patient denies S.I.,H.I.,AH/VH/TH. Continue to monitor patient. Medication rec. Done with Jace at [facility] at 1200. Patient received Nicotine Lozenge PRN as per orders at 0850. Patient arrived on unit from [facility] by stretcher. Pt's belongings secured by protective services. Pt is cooperative with admission; 4 eyes skin check done, skin is intact. Pt reports drinking 5 tall boys of beer daily. Pt denies hx of falls and seizures. Pt is med compliant; pt reports anxiety and nausea; PRN vistaril and zofran given. Pt denies SI/HI/AVH. Pt encouraged to notify staff for any questions and concerns. documented in this encounter [facility] 05-10-2024 Nurse Note Called for ride, on way. Given survey and belongings. to be here in 20. [facility] 05-10-2024 Nurse Note Denies si/hi. Discussed risk of using any etoh, street drugs, meds not prescribed or as, discussed increased risk or od or if uses following detox. Discussed discharge, IOP, stated understood and signed. Discussed red book, meetings. Given sdoh papers and discussed. Discussed script and where sent. Discussed risk etoh with naltrexone. [facility] 05-10-2024 Nurse Note Asking to be discharged, stated needs to go home today. States will call IB himself. Discussed with Dr Thrasher, and he will discharge. [facility] 05-10-2024 Note [facility] 05-10-2024 Nurse Note Discussed this morning meetings, what his plans are for super bowl, IOP. 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 States he and plan on doing more together for health, walks etc. Discussed leisure activity. [facility] 05-09-2024 Plan of care note Discussed coffee intake, states that he believes tremors are caused by the coffee. Discussed switching to water and gingerale. Also discussed the coffee may be affecting his heart rate. Up and social. Often walking the halls. Attended meetings. Appetite good. [facility] 05-09-2024 Miscellaneous Notes Discussed coffee intake, states that he believes tremors are caused by the coffee. Discussed switching to water and gingerale. Also discussed the coffee may be affecting his heart rate. Up and social. Often walking the halls. Attended meetings. Appetite good. Behavioral Health Psycho-Social Assessment (Social Work) Date: 05/08/2024 Patient Name: Maria De Jesus Hogan : 1965 Identifying Information: Patient is a 58-year-old male admitted to E4 for detox of alcohol. Patient is known to addiction medicine team. Patient last admission on 01/23/2024. Patient left with plans to engage in both IOP and MAT services. Patient completed evaluation but did not ultimately engage in IOP programming. Patient has extensive history of admissions to detox unit. Presenting Problem: Patient presented to the ED on 05/07/2024 requesting detox and alcohol. Reports last drink was just minutes before arrival to the ED. Reports blackout episodes from alcohol withdrawal. Drinking 69, 24 ounce beers daily. Psychiatric History: Patient has mental health diagnosis depression anxiety. Patient denies being on any medication for mental health needs. Patient has previous engagement with outpatient mental health providers but denies any current treatment. Patient has history of psychiatric admission. Reports admissions were due to suicidal ideation while intoxicated. Denies history of recent or past suicide attempts. Patient denies current SI/HI/AVH. Patient does have an extensive history of passive SI secondary to intoxication. Patient denies plan, intent, or method but reports more increased feelings of depression and sadness. Patient denies recent or past history of SIB. Substance Abuse/Use: Patient reports that he is currently drinking upwards of 9, 24 ounce Natty Swatidy beers daily. Patient reports his last drink was 05/07/2024. Patient labs are positive for alcohol (0.351) and barbitutaes. Patient first drank alcohol when he was [age] years old. Patient reports that his use was regular in his 20s, and problematic 12 years ago. He cannot identify a trigger to his problematic use, other than, I like beer . He drinks the point of intoxication, blackouts, and vomiting. He denies history of withdrawal seizure, alcohol overdoses, or DTs. Patient does have extensive history of falls while intoxicated. Patient denies any history of MAT engagement. Patient reports his longest period of sobriety was 6 months. Patient has previous history of detox occurring on 01/23/2024, 07/27/2023, 07/08/2023, 02/08/2023, 05/20/2023 (medical), 10/25/2021, 02/15/2021 (left AMA), 06/09/20, 10/01/19, 08/31/19 (left AMA), 2016 (left AMA), and 2014 (left AMA). He denies history of residential treatment Patient reports previous history of engagement with AA as well as IOP. Patient most recently was assessed for IOP but did not complete any programming and was dismissed. Medical/Self-care Issues: Patient has medical issues such as COPD, Lombardo's esophagus, macrocytosis, and HTN. Patient has ongoing struggles with self-care secondary to substance use disorder. Patient is increased in both frequency and tolerance over time. Patient also report struggling to recover from the effects of his substance use. Patient reports experiencing poor nutrition and sleep secondary to his substance use. Legal/Trauma/ History: Patient denies any current legal issues. Patient reports past legal history of child support violations. Patient denies any history of childhood abuse. Patient does report however his father when he was 11 years old which was a traumatic incident to him. Patient denies any history of trauma abuse as an adult. Patient denies any history [place] or status. Family Constellation/Childhood History: Patient reports that he is currently to his living in [facility]. Patient reports that he has 3 biological children and 4 stepchildren. Patient reports that his father in his 11 years old. Patient did not report his mother is still alive currently. Patient was born and raised in [place], [place] by his mother and father. He reports that his father when he was 11 years old, and this was traumatic for him. Patient reports that he was raised primarily by his mother for the remainder of his childhood. He denies childhood abuse. Education/Work: Patient reports that he graduated high school. 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 Patient denies SSI/SSD. Cultural/Spirituality/Leisure: Patient denies any cultural needs or concerns at the current time. Patient denies identify any yarsanism preference. It is unknown if patient is attending services anywhere currently. Patient reports he used to enjoy leisure activities such as golfing but has been unable to do so due to his ongoing substance use disorder. Support Systems/Collateral Information: Patient reports that his is his primary social. Patient reports that she is sober and supportive of his recovery needs and efforts. Patient reports that his is aware that he is admitted to the hospital. C-SSRS Actual Attempt (Past 3 Months): No (Patient has history of psychiatric admission. Reports admissions were due to suicidal ideation while intoxicated.Denies any recent history of suicide attempts) Actual Attempt (Lifetime): No (Patient denies any past history of suicide attempts) Interrupted Attempts (Past 3 Months): No (Patient denies) Interrupted Attempts (Lifetime): No (Patient denies) Aborted or Self-Interrupted Attempt (Past 3 Months): No (Patient denies) Aborted or Self-Interrupted Attempt (Lifetime): No (Patient denies) Preparatory Acts or Behavior (Past 3 Months): No (Patient denies) Preparatory Acts or Behavior (Lifetime): No (Patient denies) Has subject engaged in non-suicidal self-injurious behavior? (Past 3 Months): No (Patient denies any recent history of SIB) Has subject engaged in non-suicidal self-injurious behavior? (Lifetime): No (Patient denies any past history of SIB) Suicidal Ideation: (Patient denies current SI/HI/AVH. Patient does have an extensive history of passive SI secondary to intoxication. Patient denies plan, intent, or method but reports more increased feelings of depression and sadness.) Activating Events (Recent): Current or pending isolation or feeling alone, Recent loss(es) or other significant negative event(s) (legal, financial, relationship, etc.) Describe:: Ongoing struggles with substance use Treatment History: Previous psychiatric diagnoses and treatments, Non-compliant with treatment, Not receiving treatment (Patient has mental health diagnosis depression anxiety. Patient denies being on any medication for mental health needs. Patient has previous engagement with outpatient mental health providers but denies any current treatment.) Clinical Status (Recent): Hopelessness, Substance abuse or dependence, Agitation or severe anxiety, Major depressive episode, Perceived burden on family or others, Highly impulsive behavior (Risk factors) Protective Factors (Recent): Identifies reasons for living, Responsibility to family or others and/or living with family (Protective factors) Describe any suicidal, self-injurious or aggressive behavior (include dates): Patient has history of psychiatric admission. Reports admissions were due to suicidal ideation while intoxicated. Denies history of recent or past suicide attempts. Patient denies current SI/HI/AVH. Patient does have an extensive history of passive SI secondary to intoxication. Patient denies plan, intent, or method but reports more increased feelings of depression and sadness. Patient denies recent or past history of SIB. Patient has mental health diagnosis depression anxiety. Patient denies being on any medication for mental health needs. Patient has previous engagement with outpatient mental health providers but denies any current treatment. Plan: ELDER COUNSELOR patient will continue work together to establish appropriate aftercare plans based on patient sobriety, needs, resources available in the local community. Patient encouraged to engage in all activities that are offered to them while they are on the unit. Patient report needing additional current time. Patient encouraged to seek out ELDER COUNSELOR unit staff should they identify any additional needs or concerns. Comment: Please note this report has been produced using speech recognition software and may contain errors related to that system including errors in grammar, punctuation, and spelling, as well as words and phrases that may be inappropriate. If there are any questions or concerns please feel free to contact the dictating provider for clarification. Emergency Department Encounter [facility] ED Patient: Maria De eJsus Hogan : 1965 Date of Evaluation: 05/07/2024 ED Supervising Physician: Johnny Hamilton DO I personally evaluated Maria De Jesus Hogan and made/approved the management plan and take responsibility for the patient management. This will serve as my Supervisory note and shared attestation. I did perform a substantive portion of the visit including all aspects of the Medical Decision Making. I wore appropriate PPE for the entirety of this encounter. In brief, Maria De Jesus Hogan is a 58 y.o. that presents to the emergency department for detox from alcohol. He has tried detox multiple times in the past. Last drink was just prior to arrival. He states he feels like he needs to do something different as his family is falling apart and he has been having a lot of problems. He states he is ready to detox. Focused exam: Wake alert and oriented, no distress, resting comfortably, having some rock machelle and a sandwich during exam. He has no tremors, no signs of withdrawals. Awake alert and oriented, ECS 15. No abdominal distention, speaking clear sentences, abdomen nontender. Brief ED course/MDM: Patient presents to emergency department for chief complaint of requesting alcohol detox. Last drink was just prior to arrival. Labs obtained here, spoke with detox , will accept. Labs reveal no significant electrolyte derangements. Alcohol level 351, urine drug screen negative. Patient remained stable here. Diagnoses as of 05/07/24 230 Alcohol use disorder Alcohol withdrawal syndrome with complication, with unspecified complication (HCC) All diagnostic, treatment, and disposition decisions were made by myself in conjunction with the LENY. I also supervised laboy portions of any procedures performed by the LENY. For all further details of the patient's emergency department visit, please see their documentation. (Comment: Please note this report has been produced using speech recognition software and may contain errors related to that system including errors in grammar, punctuation, and spelling, as well as words and phrases that may be inappropriate. If there are any questions or concerns please feel free to contact the dictating provider for clarification.) Johnny Hamilton DO [employer] Johnny Hamilton DO 05/07/242305 documented in this encounter [facility] 05-09-2024 History of Present illness Narrative Images from the original note were not included. [facility] Smoking Cessation Progress Note Smoking Cessation Intervention Session type: initial Session length: 20 minutes Smoking History: Started at 19, 2 PPD, he rolls his own, occasionally vapes, no quit attempts, tends to smoke more when he drinks, has a script for NRT lozenges, using lozenges during admission Pack Years: 77.2 How important is it to the patient to quit? (0-10): 10 How confident is the patient that they can quit? (0-10): 3 Stage of Change: Pre-contemplation Fagerstrom Test for Nicotine Dependence Score: 9 Reasons to quit smoking identified: [x]Yes []No Triggers for smoking identified: [x]Yes []No Quit strategies for smoking identified: [x]Yes []No Nicotine withdrawal symptoms reviewed: [x]Yes []No Smoking urge distractions discussed: [x]Yes []No Request for nicotine withdrawal medication: []Yes [x]No Ready to choose a quit date with in the next 30 days: []Yes [x]No Additional Comments: Patient was referred for smoking cessation. Will follow up in May per patient request. Met with patient at bedside. He is pleasant and willing to discuss his smoking history and cessation with me. Smoking cessation education with contact information explained and given to patient. Nutrition rescreen completed. Patient assigned a level 1. Patient sleeping comfortably, will attempt smoking cessation counseling another time. documented in this encounter [facility] 05-09-2024 Nurse Note Patient is up and steady, withdrawn to room for majority of shift. Pt is cooperative and med compliant. Pt denies SI/HI/AVH. Pt encouraged to notify staff for any questions and concerns. [facility] 05-08-2024 Nurse Note Patient received asleep in room at shift change and all safety measures in place. Patient slept most of day. Patient 1ST day of Detox. Patient eating and drinking well. Patient is flushed and lio. Patient compliant with all medications @-shift. Blood drawn and sent to lab at 1400 and pending results. Patient with stable mood and compliant. CIWA 6 and 6. Patient denies S.I.,H.I.,AH/VH/TH. Continue to monitor patient. [facility] 05-08-2024 History and physical note Images from the original note were not included. ADDICTION MEDICINE 4E DETOX UNIT H&P Patient: Maria De Jesus Hogan Admit Date: 05/07/2024 Primary Care Physician: Lynda Rasheed MD HISTORY OF PRESENT ILLNESS Chief Complaint Patient presents with Alcohol Problem Patient presents for detox from alcohol. 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 Patient drinks 6-9 tall boys a day. Maria eD Jesus Hogan is a 58 y.o. male with a PMH of alcohol use disorder, alcoholic peripheral neuropathy, fatty liver, BPH and Lombardo's esophagus that was admitted for management of alcohol withdrawal. Patient was just admitted to a medical service from 04/09/24 - 04/12/24 for essentially the same reason. He was detoxed from alcohol with phenobarbital and lorazepam. He did not follow thru with any chemical dependency treatment recommendations and relapsed right away. He has been drinking alcohol daily since. Prior to that admission he was admitted back in December 2023 to our detox unit for the same reason, and ended up relapsing after that admission as well. He describes numerous withdrawal symptoms and is also complaining of paresthesias in hands/feet. He does get gabapentin prescribed for this, which I confirmed in [facility] and have restarted. He shows minimal motivation to be sober and has no clear plan for sobriety. I recommended he attend inpatient residential treatment at this point for alcoholism given numerous admissions, recidivism, and inability to remain sober in the community and he says he can't do that because I have to work. On admission, a urine drug screen was negative, and a serum alcohol level was 351 on 05/07/24 @ 2006. SUBSTANCE USE HISTORY Brief Substance Use Narrative Per previous H&P: Pt reports that he has been drinking for a long time notes that he has only had 1 year of sobriety which ended 5 years ago when my mother . Pt states that his 1 year of sobriety was brought on due to a DUI and court ordered treatment. He attended chemical detox and then IOP but cannot recall what IOP he attended. He denies any other legal issues noting this time, its for me. I just want to get better Per ELDER COUNSELOR assessment: Patient first drank alcohol when he was [age] years old. Patient reports that his use was regular in his 20s, and problematic 12 years ago. He cannot identify a trigger to his problematic use, other than, I like beer . He drinks the point of intoxication, blackouts, and vomiting. He denies history of withdrawal seizure, alcohol overdoses, or DTs. Patient does have extensive history of falls while intoxicated. Patient denies any history of MAT engagement. Patient reports his longest period of sobriety was 6 months. Patient has previous history of detox occurring on 01/23/2024, 07/27/2023, 07/08/2023, 02/08/2023, 05/20/2023 (medical), 10/25/2021, 02/15/2021 (left AMA), 06/09/20, 10/01/19, 08/31/19 (left AMA), 2016 (left AMA), and 2014 (left AMA). He denies history of residential treatment Patient reports previous history of engagement with AA as well as IOP. Patient most recently was assessed for IOP but did not complete any programming and was dismissed. Audit-C Score: 10 Current Substance Use Alcohol: 9-10 cans of 24 oz beer daily (Adriana Pereira) Amphetamines: None. Benzos: None. Cocaine: None. Hallucinogens: None. Marijuana: sporadic. Nicotine: Smokes 1 to 1.5 packs per day. Opioids: None. Treatment History Inpatient Rehab: None. Chem Dep IOP: previously attended IOP but Pt cannot recall where. Detoxifications: at least times times at [facility] previously, mostly on the detox unit but has been admitted medically too; usually leaves AMA 12 Step Meetings: Has attended several in the past but does not feel that these meetings have been helpful. Medication Assisted Treatment: Denies prior treatment. Consequences [] IVDA. [x] Blackouts related to substance use. [] History of withdrawal seizures. [] History of delirium tremens. [x] History of overdoses. [x] Legal consequences of substance use. Substance Use Disorder Criteria 2-3 = mild; 4-5 = moderate; 6 or >6 = severe substance use disorder [x] Taking substance in larger amounts and/or for longer than intended. [x] Wanting to cut down or quit but not being able to. [x] Spending a lot of time obtaining the substance. [x] Craving or a strong desire to use substance. [x] Repeatedly doesn't carry out major obligations due to substance use. [x] Using despite recurring social or interpersonal problems. [x] Reducing social, occupational, or recreational activities. [x] Recurrent use in physically hazardous situations. [x] Consistent use despite recurrent physical or psychological difficulties. [x] Tolerance (increased amounts to achieve intoxication or diminished effect). [x] Withdrawal syndrome or the substance is used to avoid withdrawal. REMAINING HISTORY Psychiatric History Current Psychiatrist: None. Current Medications: None. Diagnoses: None. Previous Medication Trials: None. Psychiatric Hospitalizations: None. Previous Suicide Attempts: None. Adverse Childhood Events: None. Trauma History: None. History of Head Injuries: None. Past Medical 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) 11/28/2023 Alcohol withdrawal syndrome without complication (HCC) Alcohol withdrawal with inpatient treatment without complication (HCC) 01/20/2024 Alcohol withdrawal, uncomplicated (HCC) 08/31/2019 Alcohol withdrawal, with unspecified complication (HCC) 10/02/2019 Alcohol withdrawal, with unspecified complication (HCC) 10/02/2019 Alcoholic intoxication without complication (CMS/HCC) (HCC) 04/10/2024 Alcoholism (CMS/HCC) (HCC) Anxiety Arthritis Maria De Jesus Cerebral artery occlusion with cerebral infarction (HCC) Cerebrovascular disease Depression GERD (gastroesophageal reflux disease) Maria De Jesus Hypertension Insomnia Past Surgical History Past Surgical History: Procedure Laterality Date COLONOSCOPY 06/10/2020 EGD/Dr Madison/[facility] CYST REMOVAL face EGD (HISTORICAL) 07/23/2022 Dr. Estrella-[facility] SMALL INTESTINE SURGERY UPPER GASTROINTESTINAL ENDOSCOPY 09/27/2021 normal WISDOM TOOTH EXTRACTION Family History Family History Problem Relation Name Age of Onset Depression Sister Maria De Jesus Hogan Other ([id number]) Sister Maria De Jesus Hogan agoraphobia Arthritis Sister Maria De Jesus Hogan Cancer Mother Maria De Jesus Hogan colon rectal cancer; dx after age 50 Other ([id number]) Mother Maria De Jesus Hogan alcoholism Alcohol abuse Mother Maria De Jesus Hogan Stroke Mother Maria De Jesus Hogan Other ([id number]) Father Maria De Jesus Hogan h/o rheumatic fever, cardiac arrest due to bee sting Hypertension Father Maria De Jesus Hogan Social Drivers of Health Tobacco Use: High Risk (05/07/2024) Patient History Smoking Tobacco Use: Every Day Smokeless Tobacco Use: Never Passive Exposure: Not on file Alcohol Use: Alcohol Misuse (05/08/2024) AUDIT-C Frequency of Alcohol Consumption: 4 or more times a week Average Number of Drinks: 5 or 6 Frequency of Binge Drinking: Daily or almost daily Financial Resource Strain: Low Risk (05/08/2024) Overall Financial Resource Strain (CARDIA) Difficulty of Paying Living Expenses: Not very hard Food Insecurity: No Food Insecurity (05/08/2024) Hunger Vital Sign Worried About Running Out of Food in the Last Year: Never true Ran Out of Food in the Last Year: Never true Transportation Needs: No Transportation Needs (05/08/2024) PRAPARE - Transportation Lack of Transportation (Medical): No Lack of Transportation (Non-Medical): No Physical Activity: Inactive (05/08/2024) Exercise Vital Sign Days of Exercise per Week: 0 days Minutes of Exercise per Session: 0 min Stress: Stress Concern Present (05/08/2024) [place] [employer] - Occupational Stress Questionnaire Feeling of Stress : To some extent Social Connections: Socially Isolated (05/08/2024) Social Connection and Isolation Panel [NHANES] Frequency of Communication with Friends and Family: Twice a week Frequency of Social Gatherings with Friends and Family: Never Attends Synagogue Services: Never Active Member of Clubs or Organizations: No Attends Club or Organization Meetings: Never Marital Status: Intimate Partner Violence: Not At Risk (05/08/2024) Humiliation, Afraid, Rape, and Kick questionnaire Fear of Current or Ex-Partner: No Emotionally Abused: No Physically Abused: No Sexually Abused: No Depression: None or minimal depression (05/08/2024) PHQ-9 PHQ-9 Score: 0 Housing Stability: Low Risk (05/08/2024) Housing Stability Vital Sign Unable to Pay for Housing in the Last Year: No Number of Times Moved in the Last Year: 0 Homeless in the Last Year: No Utilities: At Risk (05/08/2024) [facility] Utilities Threatened with loss of utilities: Yes Health Literacy: Not on file REVIEW OF SYSTEMS Review of Systems Constitutional: Positive for diaphoresis, malaise/fatigue and night sweats. Negative for chills. Eyes: Negative for visual disturbance. Cardiovascular: Negative for chest pain. Musculoskeletal: Negative for falls. Gastrointestinal: Positive for nausea. Negative for abdominal pain and vomiting. Neurological: Positive for headaches, paresthesias and tremors. Negative for light-headedness. Psychiatric/Behavioral: Negative for depression, hallucinations and suicidal ideas. The patient has insomnia and is nervous/anxious. EXAM Vitals Vitals: 05/08/24 0246 05/08/24 0532 05/08/24 1110 05/08/24 1207 BP: 90/55 111/68 BP Location: Left arm Right arm Patient Position: Lying Pulse: 118 118 80 Resp: 16 18 Temp: 36.2 C (97.2 F) 36.2 C (97.1 F) TempSrc: Temporal Temporal SpO2: 92% (!) 86% Weight: 93 kg (205 lb) Height: 1.834 m (6' 0.21) Physical Exam Vitals and nursing note reviewed. Constitutional: General: He is in acute distress. Appearance: He is ill-appearing. Comments: Disheveled HENT: Mouth/Throat: Mouth: Mucous membranes are moist. Eyes: Extraocular Movements: Extraocular movements intact. Cardiovascular: Rate and Rhythm: Regular rhythm. Tachycardia present. Pulmonary: Effort: Pulmonary effort is normal. Abdominal: General: Abdomen is flat. Palpations: Abdomen is soft. Musculoskeletal: General: Normal range of motion. Cervical back: Normal range of motion. Skin: General: Skin is warm. Neurological: General: No focal deficit present. Mental Status: He is alert and oriented to person, place, and time. Cranial Nerves: Cranial nerves 2-12 are intact. Motor: Tremor present. Psychiatric: Attention and Perception: Attention and perception normal. He does not perceive auditory or visual hallucinations. Mood and Affect: Mood is anxious. Speech: Speech normal. Behavior: Behavior normal. Behavior is cooperative. Thought Content: Thought content is not paranoid or delusional. Thought content does not include suicidal ideation. Thought content does not include suicidal plan. Judgment: Judgment is impulsive and inappropriate. IMAGING ECG 12 lead Result Date: 01/20/2024 Sinus rhythm Consider anterior infarct Electronically Signed On 01-20-2024 19:55:10 EDT by Triston Abraham LABS Recent Results (from the past 48 hours) Comprehensive metabolic panel Collection Time: 05/07/24 8:07 PM Result Value Ref Range SODIUM 137 136 - 145 mmol/L POTASSIUM 4.1 3.5 - 5.1 mmol/L CHLORIDE 96 (L) 98 - 107 mmol/L CARBON DIOXIDE 26 22 - 29 mmol/L ANION GAP 15 (H) 3 - 13 mmol/L UREA NITROGEN 3 (L) 9 - 23 mg/dL CREATININE 0.73 0.72 - 1.25 mg/dL GLUCOSE 92 74 - 100 mg/dL CALCIUM 9.1 8.4 - 10.2 mg/dL AST (SGOT) 99 (H) <34 U/L ALT 105 (H) <40 U/L ALKALINE PHOSPHATASE 98 40 - 150 U/L ALBUMIN 4.0 3.5 - 5.0 g/dL BILIRUBIN, TOTAL 0.4 <1.2 mg/dL TOTAL PROTEIN 7.2 6.4 - 8.3 g/dL eGFR >90.0 >60.0 mL/min/1.73m*2 CBC Collection Time: 05/07/24 8:07 PM Result Value Ref Range Auto WBC 5.7 3.6 - 10.7 10*3/uL RBC 4.93 4.40 - 5.90 10*6/uL Hemoglobin 16.1 13.0 - 18.0 g/dL Hematocrit 46.7 40.0 - 52.0 % MCV 94.7 77.0 - 99.0 fL MCH 32.7 26.0 - 34.0 pg MCHC 34.5 30.5 - 36.0 % RDW 13.4 11.5 - 15.0 % Platelets 228 140 - 440 10*3/uL MPV 8.8 (L) 9.0 - 12.7 fL Magnesium Collection Time: 05/07/24 8:07 PM Result Value Ref Range MAGNESIUM 2.0 1.6 - 2.6 mg/dL Ethanol Collection Time: 05/07/24 8:07 PM Result Value Ref Range ETHANOL IN SER/PLAS 351 (HH) <10 mg/dL SARS-CoV-2 Antigen Collection Time: 05/07/24 8:07 PM Specimen: Nose; Swab Result Value Ref Range SARS-CoV-2 Antigen Negative Negative Drug screen panel, emergency Collection Time: 05/07/24 9:01 PM Result Value Ref Range AMPHETAMINE SCREEN Negative BARBITURATES SCREEN Negative BENZODIAZEPINE SCREEN Negative COCAINE METAB. SCREEN Negative METHADONE SCREEN Negative OPIATES SCREEN Negative OXYCODONE SCREEN Negative PHENCYCLIDINE SCREEN Negative FENTANYL SCREEN, UR QUAL Negative MEDICATIONS Home Meds Current Outpatient Medications Medication Instructions albuterol 108 (90 Base) MCG/ACT inhaler 2 puffs, Inhalation, Every 6 hours PRN calcipotriene (Dovonex) 0.005 % cream Topical, 2 times daily clobetasol (Temovate) 0.05 % cream Topical, 2 times daily folic acid (FOLVITE) 1 mg, Oral, Daily gabapentin (NEURONTIN) 600 mg, Oral, 3 times daily melatonin 5 mg, Oral, Nightly Multiple Vitamins tablet 1 tablet, Oral, Daily naltrexone (DEPADE) 50 mg, Oral, Daily nicotine polacrilex (NICOTINE MINI) 4 mg, Mouth/Throat, Every 2 hour PRN pantoprazole (PROTONIX) 40 mg, Oral, Daily Thiamine Mononitrate (VITAMIN B1) 100 mg, Oral, Daily Scheduled Inpatient Meds folic acid, 1 mg, Oral, Daily gabapentin, 600 mg, Oral, TID pantoprazole, 40 mg, Oral, Daily PHENobarbital, 97.2 mg, Oral, Q4H therapeutic multivitamin-minerals, 1 tablet, Oral, Daily thiamine, 100 mg, Oral, q6h PRN Inpatient Meds PRN medications: acetaminophen, albuterol, aluminum & magnesium hydroxide-simethicone, hydrOXYzine pamoate, loperamide, LORazepam, magnesium hydroxide, nicotine polacrilex, ondansetron ODT, traZODone Continuous Inpatient Infusions None ASSESSMENT & PLAN Severe alcohol use disorder Cigarette smoker Counseled patient on biopsychosocial consequences of substance use. Encouraged professional chemical dependency treatment. Encouraged 12 step meeting attendance. Follow up plans for addiction management discussed with patient: Unclear. I recommended inpatient rehab but he is resistant to this idea Recidivistic behavior Ordering CDT to monitor alcohol consumption given likelihood of future admissions. Alcohol withdrawal Nicotine withdrawal Last use of alcohol was on 05/07/24. Phenobarbital taper to manage alcohol withdrawal symptoms. Lowering to 64 q 4 hours for today. CIWA scores per unit protocol. Thiamine 100 mg QID PRN medications for withdrawal symptom management added. Encouraged to participate in all unit activities. NRT ordered Alcoholic peripheral neuropathy Gabapentin 600 mg TID - confirmed in [facility] and restarted High dose thiamine I will not allow him to wear his home shoes (his request) while on this unit - I don't feel this is appropriate. Elevated liver enzymes Fatty liver Likely 2/2 to alcohol use No acute abdominal complaints Consider repeat hepatic function panel this admission Had CT abd/pelv 07/27/23: fatty liver, possibly diverticulosis but no acute issues otherwise Disposition: Discharge anticipated in 3-4 days. This is pending: Resolution of withdrawal symptoms. Medical stabilization. Labs/tests/tasks to review: aftercare, monitor liver health Consultants to coordinate care with: None. I reviewed the patient's medical record, and reviewed test results. I educated and then counseled the patient on any substance use disorder or chemical dependency related issues. This included a face to face evaluation and physical examination, and coordinating care on a substance use disorder treatment plan as well as documenting clinical information on the day of visit. [facility] 05[facility]08[facility]24 Note [facility] 05-08-2024 History and physical note Images from the original note were not included. ADDICTION MEDICINE 4E DETOX UNIT H&P Patient: Maria De Jesus Hogan Admit Date: 05/07/2024 Primary Care Physician: Lynda Rasheed MD HISTORY OF PRESENT ILLNESS Chief Complaint Patient presents with Alcohol Problem Patient presents for detox from alcohol. 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 Patient drinks 6-9 tall boys a day. Maria De Jesus Hogan is a 58 y.o. male with a PMH of alcohol use disorder, alcoholic peripheral neuropathy, fatty liver, BPH and Lombardo's esophagus that was admitted for management of alcohol withdrawal. Patient was just admitted to a medical service from 04/09/24 - 04/12/24 for essentially the same reason. He was detoxed from alcohol with phenobarbital and lorazepam. He did not follow thru with any chemical dependency treatment recommendations and relapsed right away. He has been drinking alcohol daily since. Prior to that admission he was admitted back in December 2023 to our detox unit for the same reason, and ended up relapsing after that admission as well. He describes numerous withdrawal symptoms and is also complaining of paresthesias in hands/feet. He does get gabapentin prescribed for this, which I confirmed in [facility] and have restarted. He shows minimal motivation to be sober and has no clear plan for sobriety. I recommended he attend inpatient residential treatment at this point for alcoholism given numerous admissions, recidivism, and inability to remain sober in the community and he says he can't do that because I have to work. On admission, a urine drug screen was negative, and a serum alcohol level was 351 on 05/07/24 @ 2006. SUBSTANCE USE HISTORY Brief Substance Use Narrative Per previous H&P: Pt reports that he has been drinking for a long time notes that he has only had 1 year of sobriety which ended 5 years ago when my mother . Pt states that his 1 year of sobriety was brought on due to a DUI and court ordered treatment. He attended chemical detox and then IOP but cannot recall what IOP he attended. He denies any other legal issues noting this time, its for me. I just want to get better Per ELDER COUNSELOR assessment: Patient first drank alcohol when he was [age] years old. Patient reports that his use was regular in his 20s, and problematic 12 years ago. He cannot identify a trigger to his problematic use, other than, I like beer . He drinks the point of intoxication, blackouts, and vomiting. He denies history of withdrawal seizure, alcohol overdoses, or DTs. Patient does have extensive history of falls while intoxicated. Patient denies any history of MAT engagement. Patient reports his longest period of sobriety was 6 months. Patient has previous history of detox occurring on 01/23/2024, 07/27/2023, 07/08/2023, 02/08/2023, 05/20/2023 (medical), 10/25/2021, 02/15/2021 (left AMA), 06/09/20, 10/01/19, 08/31/19 (left AMA), 2017 (left AMA), and 2014 (left AMA). He denies history of residential treatment Patient reports previous history of engagement with AA as well as IOP. Patient most recently was assessed for IOP but did not complete any programming and was dismissed. Audit-C Score: 10 Current Substance Use Alcohol: 9-10 cans of 24 oz beer daily (Adriana Pereira) Amphetamines: None. Benzos: None. Cocaine: None. Hallucinogens: None. Marijuana: sporadic. Nicotine: Smokes 1 to 1.5 packs per day. Opioids: None. Treatment History Inpatient Rehab: None. Chem Dep IOP: previously attended IOP but Pt cannot recall where. Detoxifications: at least times times at [facility] previously, mostly on the detox unit but has been admitted medically too; usually leaves AMA 12 Step Meetings: Has attended several in the past but does not feel that these meetings have been helpful. Medication Assisted Treatment: Denies prior treatment. Consequences [] IVDA. [x] Blackouts related to substance use. [] History of withdrawal seizures. [] History of delirium tremens. [x] History of overdoses. [x] Legal consequences of substance use. Substance Use Disorder Criteria 2-3 = mild; 4-5 = moderate; 6 or >6 = severe substance use disorder [x] Taking substance in larger amounts and/or for longer than intended. [x] Wanting to cut down or quit but not being able to. [x] Spending a lot of time obtaining the substance. [x] Craving or a strong desire to use substance. [x] Repeatedly doesn't carry out major obligations due to substance use. [x] Using despite recurring social or interpersonal problems. [x] Reducing social, occupational, or recreational activities. [x] Recurrent use in physically hazardous situations. [x] Consistent use despite recurrent physical or psychological difficulties. [x] Tolerance (increased amounts to achieve intoxication or diminished effect). [x] Withdrawal syndrome or the substance is used to avoid withdrawal. REMAINING HISTORY Psychiatric History Current Psychiatrist: None. Current Medications: None. Diagnoses: None. Previous Medication Trials: None. Psychiatric Hospitalizations: None. Previous Suicide Attempts: None. Adverse Childhood Events: None. Trauma History: None. History of Head Injuries: None. Past Medical 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) 11/28/2023 Alcohol withdrawal syndrome without complication (HCC) Alcohol withdrawal with inpatient treatment without complication (HCC) 01/20/2024 Alcohol withdrawal, uncomplicated (HCC) 08/31/2019 Alcohol withdrawal, with unspecified complication (HCC) 10/02/2019 Alcohol withdrawal, with unspecified complication (HCC) 10/02/2019 Alcoholic intoxication without complication (CMS/HCC) (HCC) 04/10/2024 Alcoholism (CMS/HCC) (HCC) Anxiety Arthritis Maria De Jesus Cerebral artery occlusion with cerebral infarction (HCC) Cerebrovascular disease Depression GERD (gastroesophageal reflux disease) Maria De Jesus Hypertension Insomnia Past Surgical History Past Surgical History: Procedure Laterality Date COLONOSCOPY 06/10/2020 EGD/Dr Madison/[facility] CYST REMOVAL face EGD (HISTORICAL) 07/23/2022 Dr. Estrella-[facility] SMALL INTESTINE SURGERY UPPER GASTROINTESTINAL ENDOSCOPY 09/27/2021 normal WISDOM TOOTH EXTRACTION Family History Family History Problem Relation Name Age of Onset Depression Sister Maria De Jesus Hogan Other ([id number]) Sister Maria De Jesus Hogan agoraphobia Arthritis Sister Maria De Jesus Hogan Cancer Mother Maria De Jesus Hogan colon rectal cancer; dx after age 50 Other ([id number]) Mother Maria De Jesus Hogan alcoholism Alcohol abuse Mother Maria De Jesus Hogan Stroke Mother Maria De Jesus Hogan Other ([id number]) Father Maria De Jesus Hogan h/o rheumatic fever, cardiac arrest due to bee sting Hypertension Father Maria De Jesus Hogan Social Drivers of Health Tobacco Use: High Risk (05/07/2024) Patient History Smoking Tobacco Use: Every Day Smokeless Tobacco Use: Never Passive Exposure: Not on file Alcohol Use: Alcohol Misuse (05/08/2024) AUDIT-C Frequency of Alcohol Consumption: 4 or more times a week Average Number of Drinks: 5 or 6 Frequency of Binge Drinking: Daily or almost daily Financial Resource Strain: Low Risk (05/08/2024) Overall Financial Resource Strain (CARDIA) Difficulty of Paying Living Expenses: Not very hard Food Insecurity: No Food Insecurity (05/08/2024) Hunger Vital Sign Worried About Running Out of Food in the Last Year: Never true Ran Out of Food in the Last Year: Never true Transportation Needs: No Transportation Needs (05/08/2024) PRAPARE - Transportation Lack of Transportation (Medical): No Lack of Transportation (Non-Medical): No Physical Activity: Inactive (05/08/2024) Exercise Vital Sign Days of Exercise per Week: 0 days Minutes of Exercise per Session: 0 min Stress: Stress Concern Present (05/08/2024) [place] [employer] - Occupational Stress Questionnaire Feeling of Stress : To some extent Social Connections: Socially Isolated (05/08/2024) Social Connection and Isolation Panel [NHANES] Frequency of Communication with Friends and Family: Twice a week Frequency of Social Gatherings with Friends and Family: Never Attends Synagogue Services: Never Active Member of Clubs or Organizations: No Attends Club or Organization Meetings: Never Marital Status: Intimate Partner Violence: Not At Risk (05/08/2024) Humiliation, Afraid, Rape, and Kick questionnaire Fear of Current or Ex-Partner: No Emotionally Abused: No Physically Abused: No Sexually Abused: No Depression: None or minimal depression (05/08/2024) PHQ-9 PHQ-9 Score: 0 Housing Stability: Low Risk (05/08/2024) Housing Stability Vital Sign Unable to Pay for Housing in the Last Year: No Number of Times Moved in the Last Year: 0 Homeless in the Last Year: No Utilities: At Risk (05/08/2024) [facility] Utilities Threatened with loss of utilities: Yes Health Literacy: Not on file REVIEW OF SYSTEMS Review of Systems Constitutional: Positive for diaphoresis, malaise/fatigue and night sweats. Negative for chills. Eyes: Negative for visual disturbance. Cardiovascular: Negative for chest pain. Musculoskeletal: Negative for falls. Gastrointestinal: Positive for nausea. Negative for abdominal pain and vomiting. Neurological: Positive for headaches, paresthesias and tremors. Negative for light-headedness. Psychiatric/Behavioral: Negative for depression, hallucinations and suicidal ideas. The patient has insomnia and is nervous/anxious. EXAM Vitals Vitals: 05/08/24 0246 05/08/24 0532 05/08/24 1110 05/08/24 1207 BP: 90/55 111/68 BP Location: Left arm Right arm Patient Position: Lying Pulse: 118 118 80 Resp: 16 18 Temp: 36.2 C (97.2 F) 36.2 C (97.1 F) TempSrc: Temporal Temporal SpO2: 92% (!) 86% Weight: 93 kg (205 lb) Height: 1.834 m (6' 0.21) Physical Exam Vitals and nursing note reviewed. Constitutional: General: He is in acute distress. Appearance: He is ill-appearing. Comments: Disheveled HENT: Mouth/Throat: Mouth: Mucous membranes are moist. Eyes: Extraocular Movements: Extraocular movements intact. Cardiovascular: Rate and Rhythm: Regular rhythm. Tachycardia present. Pulmonary: Effort: Pulmonary effort is normal. Abdominal: General: Abdomen is flat. Palpations: Abdomen is soft. Musculoskeletal: General: Normal range of motion. Cervical back: Normal range of motion. Skin: General: Skin is warm. Neurological: General: No focal deficit present. Mental Status: He is alert and oriented to person, place, and time. Cranial Nerves: Cranial nerves 2-12 are intact. Motor: Tremor present. Psychiatric: Attention and Perception: Attention and perception normal. He does not perceive auditory or visual hallucinations. Mood and Affect: Mood is anxious. Speech: Speech normal. Behavior: Behavior normal. Behavior is cooperative. Thought Content: Thought content is not paranoid or delusional. Thought content does not include suicidal ideation. Thought content does not include suicidal plan. Judgment: Judgment is impulsive and inappropriate. IMAGING ECG 12 lead Result Date: 01/20/2024 Sinus rhythm Consider anterior infarct Electronically Signed On 01-20-2024 19:55:10 EDT by Triston BRADSHAW Recent Results (from the past 48 hours) Comprehensive metabolic panel Collection Time: 05/07/24 8:07 PM Result Value Ref Range SODIUM 137 136 - 145 mmol/L POTASSIUM 4.1 3.5 - 5.1 mmol/L CHLORIDE 96 (L) 98 - 107 mmol/L CARBON DIOXIDE 26 22 - 29 mmol/L ANION GAP 15 (H) 3 - 13 mmol/L UREA NITROGEN 3 (L) 9 - 23 mg/dL CREATININE 0.73 0.72 - 1.25 mg/dL GLUCOSE 92 74 - 100 mg/dL CALCIUM 9.1 8.4 - 10.2 mg/dL AST (SGOT) 99 (H) <34 U/L ALT 105 (H) <40 U/L ALKALINE PHOSPHATASE 98 40 - 150 U/L ALBUMIN 4.0 3.5 - 5.0 g/dL BILIRUBIN, TOTAL 0.4 <1.2 mg/dL TOTAL PROTEIN 7.2 6.4 - 8.3 g/dL eGFR >90.0 >60.0 mL/min/1.73m*2 CBC Collection Time: 05/07/24 8:07 PM Result Value Ref Range Auto WBC 5.7 3.6 - 10.7 10*3/uL RBC 4.93 4.40 - 5.90 10*6/uL Hemoglobin 16.1 13.0 - 18.0 g/dL Hematocrit 46.7 40.0 - 52.0 % MCV 94.7 77.0 - 99.0 fL MCH 32.7 26.0 - 34.0 pg MCHC 34.5 30.5 - 36.0 % RDW 13.4 11.5 - 15.0 % Platelets 228 140 - 440 10*3/uL MPV 8.8 (L) 9.0 - 12.7 fL Magnesium Collection Time: 05/07/24 8:07 PM Result Value Ref Range MAGNESIUM 2.0 1.6 - 2.6 mg/dL Ethanol Collection Time: 05/07/24 8:07 PM Result Value Ref Range ETHANOL IN SER/PLAS 351 (HH) <10 mg/dL SARS-CoV-2 Antigen Collection Time: 05/07/24 8:07 PM Specimen: Nose; Swab Result Value Ref Range SARS-CoV-2 Antigen Negative Negative Drug screen panel, emergency Collection Time: 05/07/24 9:01 PM Result Value Ref Range AMPHETAMINE SCREEN Negative BARBITURATES SCREEN Negative BENZODIAZEPINE SCREEN Negative COCAINE METAB. SCREEN Negative METHADONE SCREEN Negative OPIATES SCREEN Negative OXYCODONE SCREEN Negative PHENCYCLIDINE SCREEN Negative FENTANYL SCREEN, UR QUAL Negative MEDICATIONS Home Meds Current Outpatient Medications Medication Instructions albuterol 108 (90 Base) MCG/ACT inhaler 2 puffs, Inhalation, Every 6 hours PRN calcipotriene (Dovonex) 0.005 % cream Topical, 2 times daily clobetasol (Temovate) 0.05 % cream Topical, 2 times daily folic acid (FOLVITE) 1 mg, Oral, Daily gabapentin (NEURONTIN) 600 mg, Oral, 3 times daily melatonin 5 mg, Oral, Nightly Multiple Vitamins tablet 1 tablet, Oral, Daily naltrexone (DEPADE) 50 mg, Oral, Daily nicotine polacrilex (NICOTINE MINI) 4 mg, Mouth/Throat, Every 2 hour PRN pantoprazole (PROTONIX) 40 mg, Oral, Daily Thiamine Mononitrate (VITAMIN B1) 100 mg, Oral, Daily Scheduled Inpatient Meds folic acid, 1 mg, Oral, Daily gabapentin, 600 mg, Oral, TID pantoprazole, 40 mg, Oral, Daily PHENobarbital, 97.2 mg, Oral, Q4H therapeutic multivitamin-minerals, 1 tablet, Oral, Daily thiamine, 100 mg, Oral, q6h PRN Inpatient Meds PRN medications: acetaminophen, albuterol, aluminum & magnesium hydroxide-simethicone, hydrOXYzine pamoate, loperamide, LORazepam, magnesium hydroxide, nicotine polacrilex, ondansetron ODT, traZODone Continuous Inpatient Infusions None ASSESSMENT & PLAN Severe alcohol use disorder Cigarette smoker Counseled patient on biopsychosocial consequences of substance use. Encouraged professional chemical dependency treatment. Encouraged 12 step meeting attendance. Follow up plans for addiction management discussed with patient: Unclear. I recommended inpatient rehab but he is resistant to this idea Recidivistic behavior Ordering CDT to monitor alcohol consumption given likelihood of future admissions. Alcohol withdrawal Nicotine withdrawal Last use of alcohol was on 05/07/24. Phenobarbital taper to manage alcohol withdrawal symptoms. Lowering to 64 q 4 hours for today. CIWA scores per unit protocol. Thiamine 100 mg QID PRN medications for withdrawal symptom management added. Encouraged to participate in all unit activities. NRT ordered Alcoholic peripheral neuropathy Gabapentin 600 mg TID - confirmed in [facility] and restarted High dose thiamine I will not allow him to wear his home shoes (his request) while on this unit - I don't feel this is appropriate. Elevated liver enzymes Fatty liver Likely 2/2 to alcohol use No acute abdominal complaints Consider repeat hepatic function panel this admission Had CT abd/pelv 07/27/23: fatty liver, possibly diverticulosis but no acute issues otherwise Disposition: Discharge anticipated in 3-4 days. This is pending: Resolution of withdrawal symptoms. Medical stabilization. Labs/tests/tasks to review: aftercare, monitor liver health Consultants to coordinate care with: None. I reviewed the patient's medical record, and reviewed test results. I educated and then counseled the patient on any substance use disorder or chemical dependency related issues. This included a face to face evaluation and physical examination, and coordinating care on a substance use disorder treatment plan as well as documenting clinical information on the day of visit. documented in this encounter [facility] 05-08-2024 Note Patient sleeping com fortably, will attempt smoking cessation counseling another time. [facility] 05-08-2024 Nurse Note Medication rec. Done with Jace at [facility] at 1200. [facility] 05-08-2024 Nurse Note Patient received Nicotine Lozenge PRN as per orders at 0850. [facility] 05-08-2024 Hospital Discharge instructions JEREMY Solis - 05/08/2024 8:23 AM EST After detox you should abstain from any use of any mood altering chemical Appointment with your primary care physician should be scheduled It is highly recommended that you attend post hospital treatment Please read the information give to you - Intro to 12 step programs Call the National Suicide Prevention Hotline if needed at: 9-952-397-WNSJ (4817) Please call the following number should you have questions regarding your discharge or aftercare appointments: [facility] documented in this encounter [facility] 05-08-2024 Note Formatting of this n ote is different from the original. Behavioral Health Psycho-Social Assessment (Social Work) Date: 05/08/2024 Patient Name: Maria De Jesus Hogan : 1965 Identifying Information: Patient is a 58-year-old male admitted to for detox of alcohol. Patient is known to addiction medicine team. Patient last admission on 01/23/2024. Patient left with plans to engage in both IOP and MAT services. Patient completed evaluation but did not ultimately engage in IOP programming. Patient has extensive history of admissions to detox unit. Presenting Problem: Patient presented to the ED on 05/07/2024 requesting detox and alcohol. Reports last drink was just minutes before arrival to the ED. Reports blackout episodes from alcohol withdrawal. Drinking 69, 24 ounce beers daily. Psychiatric History: Patient has mental health diagnosis depression anxiety. Patient denies being on any medication for mental health needs. Patient has previous engagement with outpatient mental health providers but denies any current treatment. Patient has history of psychiatric admission. Reports admissions were due to suicidal ideation while intoxicated. Denies history of recent or past suicide attempts. Patient denies current SI/HI/AVH. Patient does have an extensive history of passive SI secondary to intoxication. Patient denies plan, intent, or method but reports more increased feelings of depression and sadness. Patient denies recent or past history of SIB. Substance Abuse/Use: Patient reports that he is currently drinking upwards of 9, 24 ounce Natty Daddy beers daily. Patient reports his last drink was 05/07/2024. Patient labs are positive for alcohol (0.351) and barbitutaes. Patient first drank alcohol when he was [age] years old. Patient reports that his use was regular in his 20s, and problematic 12 years ago. He cannot identify a trigger to his problematic use, other than, I like beer . He drinks the point of intoxication, blackouts, and vomiting. He denies history of withdrawal seizure, alcohol overdoses, or DTs. Patient does have extensive history of falls while intoxicated. Patient denies any history of MAT engagement. Patient reports his longest period of sobriety was 6 months. Patient has previous history of detox occurring on 01/23/2024, 07/27/2023, 07/08/2023, 02/08/2023, 05/20/2023 (medical), 10/25/2021, 02/15/2021 (left AMA), 06/09/20, 10/01/19, 08/31/19 (left AMA), 2016 (left AMA), and 2014 (left AMA). He denies history of residential treatment Patient reports previous history of engagement with AA as well as IOP. Patient most recently was assessed for IOP but did not complete any programming and was dismissed. Medical/Self-care Issues: Patient has medical issues such as COPD, Lombardo's esophagus, macrocytosis, and HTN. Patient has ongoing struggles with self-care secondary to substance use disorder. Patient is increased in both frequency and tolerance over time. Patient also report struggling to recover from the effects of his substance use. Patient reports experiencing poor nutrition and sleep secondary to his substance use. Legal/Trauma/ History: Patient denies any current legal issues. Patient reports past legal history of child support violations. Patient denies any history of childhood abuse. Patient does report however his father when he was 11 years old which was a traumatic incident to him. Patient denies any history of trauma abuse as an adult. Patient denies any history [place] or status. Family Constellation/Childhood History: Patient reports that he is currently to his living in [facility]. Patient reports that he has 3 biological children and 4 stepchildren. Patient reports that his father in his 11 years old. Patient did not report his mother is still alive currently. Patient was born and raised in [place], [place] by his mother and father. He reports that his father when he was 11 years old, and this was traumatic for him. Patient reports that he was raised primarily by his mother for the remainder of his childhood. He denies childhood abuse. Education/Work: Patient reports that he graduated high school. 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 Patient denies SSI/SSD. Cultural/Spirituality/Leisure: Patient denies any cultural needs or concerns at the current time. Patient denies identify any yarsanism preference. It is unknown if patient is attending services anywhere currently. Patient reports he used to enjoy leisure activities such as golfing but has been unable to do so due to his ongoing substance use disorder. Support Systems/Collateral Information: Patient reports that his is his primary social. Patient reports that she is sober and supportive of his recovery needs and efforts. Patient reports that his is aware that he is admitted to the hospital. C-SSRS Actual Attempt (Past 3 Months): No (Patient has history of psychiatric admission. Reports admissions were due to suicidal ideation while intoxicated.Denies any recent history of suicide attempts) Actual Attempt (Lifetime): No (Patient denies any past history of suicide attempts) Interrupted Attempts (Past 3 Months): No (Patient denies) Interrupted Attempts (Lifetime): No (Patient denies) Aborted or Self-Interrupted Attempt (Past 3 Months): No (Patient denies) Aborted or Self-Interrupted Attempt (Lifetime): No (Patient denies) Preparatory Acts or Behavior (Past 3 Months): No (Patient denies) Preparatory Acts or Behavior (Lifetime): No (Patient denies) Has subject engaged in non-suicidal self-injurious behavior? (Past 3 Months): No (Patient denies any recent history of SIB) Has subject engaged in non-suicidal self-injurious behavior? (Lifetime): No (Patient denies any past history of SIB) Suicidal Ideation: (Patient denies current SI/HI/AVH. Patient does have an extensive history of passive SI secondary to intoxication. Patient denies plan, intent, or method but reports more increased feelings of depression and sadness.) Activating Events (Recent): Current or pending isolation or feeling alone, Recent loss(es) or other significant negative event(s) (legal, financial, relationship, etc.) Describe:: Ongoing struggles with substance use Treatment History: Previous psychiatric diagnoses and treatments, Non-compliant with treatment, Not receiving treatment (Patient has mental health diagnosis depression anxiety. Patient denies being on any medication for mental health needs. Patient has previous engagement with outpatient mental health providers but denies any current treatment.) Clinical Status (Recent): Hopelessness, Substance abuse or dependence, Agitation or severe anxiety, Major depressive episode, Perceived burden on family or others, Highly impulsive behavior (Risk factors) Protective Factors (Recent): Identifies reasons for living, Responsibility to family or others and/or living with family (Protective factors) Describe any suicidal, self-injurious or aggressive behavior (include dates): Patient has history of psychiatric admission. Reports admissions were due to suicidal ideation while intoxicated. Denies history of recent or past suicide attempts. Patient denies current SI/HI/AVH. Patient does have an extensive history of passive SI secondary to intoxication. Patient denies plan, intent, or method but reports more increased feelings of depression and sadness. Patient denies recent or past history of SIB. Patient has mental health diagnosis depression anxiety. Patient denies being on any medication for mental health needs. Patient has previous engagement with outpatient mental health providers but denies any current treatment. Plan: ELDER COUNSELOR patient will continue work together to establish appropriate aftercare plans based on patient sobriety, needs, resources available in the local community. Patient encouraged to engage in all activities that are offered to them while they are on the unit. Patient report needing additional current time. Patient encouraged to seek out ELDER COUNSELOR unit staff should they identify any additional needs or concerns. Comment: Please note this report has been produced using speech recognition software and may contain errors related to that system including errors in grammar, punctuation, and spelling, as well as words and phrases that may be inappropriate. If there are any questions or concerns please feel free to contact the dictating provider for clarification. [facility] 05-08-2024 Note Formatting of this n ote is different from the original. Behavioral Health Psycho-Social Assessment (Social Work) Date: 05/08/2024 Patient Name: Maria De Jesus Hogan : 1965 Identifying Information: Patient is a 58-year-old male admitted to for detox of alcohol. Patient is known to addiction medicine team. Patient last admission on 01/23/2024. Patient left with plans to engage in both IOP and MAT services. Patient completed evaluation but did not ultimately engage in IOP programming. Patient has extensive history of admissions to detox unit. Presenting Problem: Patient presented to the ED on 05/07/2024 requesting detox and alcohol. Reports last drink was just minutes before arrival to the ED. Reports blackout episodes from alcohol withdrawal. Drinking 69, 24 ounce beers daily. Psychiatric History: Patient has mental health diagnosis depression anxiety. Patient denies being on any medication for mental health needs. Patient has previous engagement with outpatient mental health providers but denies any current treatment. Patient has history of psychiatric admission. Reports admissions were due to suicidal ideation while intoxicated. Denies history of recent or past suicide attempts. Patient denies current SI/HI/AVH. Patient does have an extensive history of passive SI secondary to intoxication. Patient denies plan, intent, or method but reports more increased feelings of depression and sadness. Patient denies recent or past history of SIB. Substance Abuse/Use: Patient reports that he is currently drinking upwards of 9, 24 ounce Natty Swatidy beers daily. Patient reports his last drink was 05/07/2024. Patient labs are positive for alcohol (0.351) and barbitutaes. Patient first drank alcohol when he was [age] years old. Patient reports that his use was regular in his 20s, and problematic 12 years ago. He cannot identify a trigger to his problematic use, other than, I like beer . He drinks the point of intoxication, blackouts, and vomiting. He denies history of withdrawal seizure, alcohol overdoses, or DTs. Patient does have extensive history of falls while intoxicated. Patient denies any history of MAT engagement. Patient reports his longest period of sobriety was 6 months. Patient has previous history of detox occurring on 01/23/2024, 07/27/2023, 07/08/2023, 02/08/2023, 05/20/2023 (medical), 10/25/2021, 02/15/2021 (left AMA), 06/09/20, 10/01/19, 08/31/19 (left AMA), 2016 (left AMA), and 2014 (left AMA). He denies history of residential treatment Patient reports previous history of engagement with AA as well as IOP. Patient most recently was assessed for IOP but did not complete any programming and was dismissed. Medical/Self-care Issues: Patient has medical issues such as COPD, Lombardo's esophagus, macrocytosis, and HTN. Patient has ongoing struggles with self-care secondary to substance use disorder. Patient is increased in both frequency and tolerance over time. Patient also report struggling to recover from the effects of his substance use. Patient reports experiencing poor nutrition and sleep secondary to his substance use. Legal/Trauma/ History: Patient denies any current legal issues. Patient reports past legal history of child support violations. Patient denies any history of childhood abuse. Patient does report however his father when he was 11 years old which was a traumatic incident to him. Patient denies any history of trauma abuse as an adult. Patient denies any history [place] or status. Family Constellation/Childhood History: Patient reports that he is currently to his living in [facility]. Patient reports that he has 3 biological children and 4 stepchildren. Patient reports that his father in his 11 years old. Patient did not report his mother is still alive currently. Patient was born and raised in [place], [place] by his mother and father. He reports that his father when he was 11 years old, and this was traumatic for him. Patient reports that he was raised primarily by his mother for the remainder of his childhood. He denies childhood abuse. Education/Work: Patient reports that he graduated high school. 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 Patient denies SSI/SSD. Cultural/Spirituality/Leisure: Patient denies any cultural needs or concerns at the current time. Patient denies identify any yarsanism preference. It is unknown if patient is attending services anywhere currently. Patient reports he used to enjoy leisure activities such as golfing but has been unable to do so due to his ongoing substance use disorder. Support Systems/Collateral Information: Patient reports that his is his primary social. Patient reports that she is sober and supportive of his recovery needs and efforts. Patient reports that his is aware that he is admitted to the hospital. C-SSRS Actual Attempt (Past 3 Months): No (Patient has history of psychiatric admission. Reports admissions were due to suicidal ideation while intoxicated.Denies any recent history of suicide attempts) Actual Attempt (Lifetime): No (Patient denies any past history of suicide attempts) Interrupted Attempts (Past 3 Months): No (Patient denies) Interrupted Attempts (Lifetime): No (Patient denies) Aborted or Self-Interrupted Attempt (Past 3 Months): No (Patient denies) Aborted or Self-Interrupted Attempt (Lifetime): No (Patient denies) Preparatory Acts or Behavior (Past 3 Months): No (Patient denies) Preparatory Acts or Behavior (Lifetime): No (Patient denies) Has subject engaged in non-suicidal self-injurious behavior? (Past 3 Months): No (Patient denies any recent history of SIB) Has subject engaged in non-suicidal self-injurious behavior? (Lifetime): No (Patient denies any past history of SIB) Suicidal Ideation: (Patient denies current SI/HI/AVH. Patient does have an extensive history of passive SI secondary to intoxication. Patient denies plan, intent, or method but reports more increased feelings of depression and sadness.) Activating Events (Recent): Current or pending isolation or feeling alone, Recent loss(es) or other significant negative event(s) (legal, financial, relationship, etc.) Describe:: Ongoing struggles with substance use Treatment History: Previous psychiatric diagnoses and treatments, Non-compliant with treatment, Not receiving treatment (Patient has mental health diagnosis depression anxiety. Patient denies being on any medication for mental health needs. Patient has previous engagement with outpatient mental health providers but denies any current treatment.) Clinical Status (Recent): Hopelessness, Substance abuse or dependence, Agitation or severe anxiety, Major depressive episode, Perceived burden on family or others, Highly impulsive behavior (Risk factors) Protective Factors (Recent): Identifies reasons for living, Responsibility to family or others and/or living with family (Protective factors) Describe any suicidal, self-injurious or aggressive behavior (include dates): Patient has history of psychiatric admission. Reports admissions were due to suicidal ideation while intoxicated. Denies history of recent or past suicide attempts. Patient denies current SI/HI/AVH. Patient does have an extensive history of passive SI secondary to intoxication. Patient denies plan, intent, or method but reports more increased feelings of depression and sadness. Patient denies recent or past history of SIB. Patient has mental health diagnosis depression anxiety. Patient denies being on any medication for mental health needs. Patient has previous engagement with outpatient mental health providers but denies any current treatment. Plan: ELDER COUNSELOR patient will continue work together to establish appropriate aftercare plans based on patient sobriety, needs, resources available in the local community. Patient encouraged to engage in all activities that are offered to them while they are on the unit. Patient report needing additional current time. Patient encouraged to seek out ELDER COUNSELOR unit staff should they identify any additional needs or concerns. Comment: Please note this report has been produced using speech recognition software and may contain errors related to that system including errors in grammar, punctuation, and spelling, as well as words and phrases that may be inappropriate. If there are any questions or concerns please feel free to contact the dictating provider for clarification. [facility] 02-07-2025 Nurse Note Patient arrived on unit from [facility] by stretcher. Pt's belongings secured by protective services. Pt is cooperative with admission; 4 eyes skin check done, skin is intact. Pt reports drinking 5 tall boys of beer daily. Pt denies hx of falls and seizures. Pt is med compliant; pt reports anxiety and nausea; PRN vistaril and zofran given. Pt denies SI/HI/AVH. Pt encouraged to notify staff for any questions and concerns. [facility] 05-08-2024 Emergency department Note Report to Evelyn THOMPSON at [facility] on 4E [facility] 05-08-2024 Emergency department Note Report to Evelyn THOMPSON at [facility] on 4E Report to [facility] at bedside. Vitals taken. Protective at bedside for final wanding. Belongings, detox rules and paperwork sent with patient/EMS Security at bedside for a belongings check The following are the next steps in your Substance use Treatment Plan: Below are additional resources that you may find beneficial in your treatment: 12-Step: Alcohol Anonymous: akronaa.org Brennon Anon: [phone]: 12-step program for families & friends of people with addiction. CRISIS: Homeless Hotline: 430.232.3478 [facility] 22/10 line-22/10 OFFICE: [phone] [facility]: [address] [place] [address] [phone] (24 Hours) Domestic Violence help line anytime: 773.921.9284 Crisis Hotline: 22/10- 591.614.3585 ADM Addiction Helpline: 349.363.8953 (available 8:30 AM to 4:00 PM ) helps people across [facility] find local resources when they don't know where to turn for help. We are available 24 hours a day, 7 days a week. For help, simply dial to speak to one of our trained professionals. DETOX TREATMENT: [facility], [place], [place] [phone] /[facility] Crisis Center: anytime @ [phone] for alcohol & drug addiction help. [facility], [place], [place] [phone] [facility] [place]: [phone] [place]: [phone], [facility] [place]: [phone] [place], [place] [phone] Adolescent detox [place], [place] [phone] [facility] [place]: [phone] [facility], [place], [place] [phone] ext. [phone] [facility], [facility] & detox & Sober living [phone] [place], [place] (pt. must be medically cleared prior to admission in ED) [facility], [place], [place] [phone] OUTPATIENT TREATMENT: [facility] @ [place] [phone]. [facility]ensive Outpatient Programs- [facility] [place] [phone] [place], [place] [phone] [place], [place] [phone] [facility] Addiction Treatment: [place], [place] [phone] or [phone]. [facility]: [phone] [facility]: [phone], [place]: [phone] [facility], [place], [place]: [phone] [facility], [place], [place]: [phone] [facility], [place]: [phone], [place]: [phone] [facility] [place]. [place]: [phone] [facility], [facility] & Sober living [phone] [facility], [place], [place] [phone] Behavioral Health Services: [facility]: [phone]-[phone], [place]/Encrkv-[phone], [place]- [phone] [facility], [place]: [phone], [place]: [phone] [facility], [place], [place] [phone] [facility], [place], [place] [phone] [facility] [place], [place] [phone], inpt, services, dual dx. Tx. with detox. [facility]: [place] [phone] [facility], [place] [phone] [facility] [phone] [facility] SERVICES: [facility] ([address]): [place], [place] [phone] [facility] [place] & [place]: [phone] RESIDENTIAL TREATMENT FACILITIES: [facility]: inpt. Or outpt. - [phone] [facility], [place], [place] [phone] [place], [place] [phone] [facility] (CATS) @ [facility] [phone] [facility] tx., [place], [place] [phone] (admission coordinated by ADM Gurvinder Landers ext [phone]) [facility] [place]: [phone]; Men's services inpt. & women services - Outpt. [place], [place] [phone] [facility], [place], [place] [phone] [facility], [place], [place] [phone] [facility], [place], [place] [phone] [facility], [place], [place] [phone] [facility] - [place], [place] [phone] [facility], [place], [place] [phone] [place], [place] [phone] [facility], [facility] & detox & Sober living [phone] OTHER SERVICES: [facility] [employer]: [phone] [facility]: [phone] ext. [phone] Medicaid Health Coverage: [employer] JFS: [phone] Dr. Hamilton at bedside speaking with pt. EMERGENCY DEPARTMENT ENCOUNTER Pt Name: Maria De Jesus Hogan Birthdate 1965 Date of evaluation: 05/07/2024 ED Provider: JUAN Lang CNP This patient was seen in conjunction with Dr. Hamilton CHIEF COMPLAINT Chief Complaint Patient presents with Alcohol Problem Patient presents for detox from alcohol. 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 Patient drinks 6-9 tall boys a day. HISTORY OF PRESENT ILLNESS (Location/Symptom, Timing/Onset, Context/Setting, Quality, Duration, Modifying Factors, Severity) Note limiting factors. I wore appropriate PPE for the entirety of this encounter. HPI Maria De Jesus Hogan is a 58 y.o. who presents to the emergency department with chief complaint of requesting alcohol detox. Last drink was minutes before arrival to the emergency department. He states he has had blackout episodes from alcohol withdrawal before. Denies any other complaints. Nursing Notes were reviewed. Limitations to history: None Outside historians: None REVIEW OF SYSTEMS Review of Systems Constitutional: Negative for activity change, appetite change, chills and fever. HENT: Negative for congestion, nosebleeds, postnasal drip, sore throat and trouble swallowing. Eyes: Negative for pain and visual disturbance. Respiratory: Negative for cough and shortness of breath. Cardiovascular: Negative for chest pain. Gastrointestinal: Negative for abdominal pain, nausea and vomiting. Genitourinary: Negative for dysuria, flank pain, hematuria, penile discharge, scrotal swelling and testicular pain. Musculoskeletal: Negative for arthralgias, back pain and myalgias. Skin: Negative for rash and wound. Neurological: Negative for dizziness, syncope, weakness and light-headedness. Psychiatric/Behavioral: Negative for agitation and confusion. All other systems reviewed and are negative. Pertinent positives and negatives as per HPI. PAST MEDICAL HISTORY Past Medical History: Diagnosis Date Alcohol abuse Alcohol dependence with withdrawal (HCC) 08/31/2019 Alcohol intoxication without use disorder, uncomplicated (HCC) 10/01/2019 Alcohol use disorder 09/10/2022 Alcohol withdrawal syndrome with complication (HCC) 09/27/2021 Alcohol withdrawal syndrome without complication (HCC) Alcohol withdrawal with inpatient treatment without complication (HCC) 01/20/2024 Alcohol withdrawal, uncomplicated (HCC) 08/31/2019 Alcohol withdrawal, with unspecified complication (HCC) 10/02/2019 Alcohol withdrawal, with unspecified complication (HCC) 10/02/2019 Alcoholism ([facility]/HCC) (HCC) Anxiety Arthritis Maria De Jesus Cerebral artery occlusion with cerebral infarction (HCC) Cerebrovascular disease Depression GERD (gastroesophageal reflux disease) Maria De Jesus Hypertension Insomnia SURGICAL HISTORY Past Surgical History: Procedure Laterality Date COLONOSCOPY 06/10/2020 EGD/Dr Madison/B CYST REMOVAL face EGD (HISTORICAL) 07/23/2022 Dr. Estrella-[facility] SMALL INTESTINE SURGERY UPPER GASTROINTESTINAL ENDOSCOPY 09/27/2021 normal WISDOM TOOTH EXTRACTION CURRENT MEDICATIONS Previous Medications ALBUTEROL 108 (90 BASE) MCG/ACT INHALER Inhale 2 puffs every 6 hours as needed for wheezing or shortness of breath. CALCIPOTRIENE (DOVONEX) 0.005 % CREAM Apply topically 2 times daily. CLOBETASOL (TEMOVATE) 0.05 % CREAM Apply topically 2 times daily. FOLIC ACID (FOLVITE) 1 MG TABLET Take 1 tablet (1 mg) by mouth daily. GABAPENTIN (NEURONTIN) 300 MG CAPSULE Take 2 capsules (600 mg) by mouth 3 times daily. MELATONIN 5 MG TABLET Take 1 tablet (5 mg) by mouth Nightly. MULTIPLE VITAMINS TABLET Take 1 tablet by mouth daily. NALTREXONE (DEPADE) 50 MG TABLET Take 1 tablet (50 mg) by mouth daily. NICOTINE POLACRILEX (NICOTINE MINI) 4 MG LOZENGE Dissolve 1 lozenge (4 mg) in the mouth every 2 hours as needed for smoking cessation. PANTOPRAZOLE (PROTONIX) 40 MG EC TABLET Take 1 tablet (40 mg) by mouth daily. THIAMINE MONONITRATE (VITAMIN B1) 100 MG TABLET Take 1 tablet (100 mg) by mouth daily. ALLERGIES Bee venom, Nickel, and Tramadol FAMILY HISTORY Family History Problem Relation Name Age of Onset Depression Sister Maria De Jesus Hogan Other ([id number]) Sister Maria De Jesus Hogan agoraphobia Arthritis Sister Maria De Jesus Hogan Cancer Mother Maria De Jesus Hogan colon rectal cancer; dx after age 50 Other ([id number]) Mother Maria De Jesus Hogan alcoholism Alcohol abuse Mother Maria De Jesus Hogan Stroke Mother Maria De Jesus Hogan Other ([id number]) Father Maria De Jesus Hogan h/o rheumatic fever, cardiac arrest due to bee sting Hypertension Father Maria De Jesus Hogan SOCIAL HISTORY Social History Socioeconomic History Marital status: Tobacco Use Smoking status: Every Day Current packs/day: 2.00 Average packs/day: 2.0 packs/day for 38.6 years (77.1 ttl pk-yrs) Types: Cigarettes Start date: 10/10/1985 Smokeless tobacco: Never Vaping Use Vaping status: Never Used Substance and Sexual Activity Alcohol use: Yes Comment: Detox home for a week 0 drinks 02/17/23, 6 tall boys/ daily 11/28/23 Drug use: No Sexual activity: Yes Partners: Female control/protection: Other Comment: live with Social Drivers of Health Financial Resource Strain: Low Risk (01/28/2024) Overall Financial Resource Strain (CARDIA) Difficulty of Paying Living Expenses: Not very hard Recent Concern: Financial Resource Strain - Medium Risk (01/20/2024) Overall Financial Resource Strain (CARDIA) Difficulty of Paying Living Expenses: Somewhat hard Food Insecurity: No Food Insecurity (04/10/2024) Hunger Vital Sign Worried About Running Out of Food in the Last Year: Never true Ran Out of Food in the Last Year: Never true Transportation Needs: No Transportation Needs (04/10/2024) PRAPARE - Transportation Lack of Transportation (Medical): No Lack of Transportation (Non-Medical): No Physical Activity: Inactive (01/20/2024) Exercise Vital Sign Days of Exercise per Week: 0 days Minutes of Exercise per Session: 0 min Stress: No Stress Concern Present (01/20/2024) [place] [employer] - Occupational Stress Questionnaire Feeling of Stress : Not at all Social Connections: Unknown (01/28/2024) Social Connection and Isolation Panel [NHANES] Frequency of Communication with Friends and Family: Twice a week Frequency of Social Gatherings with Friends and Family: Patient unable to answer Attends Synagogue Services: Never Active Member of Clubs or Organizations: No Attends Club or Organization Meetings: Never Marital Status: Recent Concern: Social Connections - Socially Isolated (01/20/2024) Social Connection and Isolation Panel [NHANES] Frequency of Communication with Friends and Family: Never Frequency of Social Gatherings with Friends and Family: Never Attends Synagogue Services: Never Active Member of Clubs or Organizations: No Attends Club or Organization Meetings: Never Marital Status: Intimate Partner Violence: Not At Risk (04/10/2024) Humiliation, Afraid, Rape, and Kick questionnaire Fear of Current or Ex-Partner: No Emotionally Abused: No Physically Abused: No Sexually Abused: No Housing Stability: Low Risk (04/10/2024) Housing Stability Vital Sign Unable to Pay for Housing in the Last Year: No Number of Times Moved in the Last Year: 0 Homeless in the Last Year: No Recent Concern: Housing Stability - High Risk (01/28/2024) Housing Stability Vital Sign Unable to Pay for Housing in the Last Year: No Number of Times Moved in the Last Year: 2 Homeless in the Last Year: No SCREENINGS PHYSICAL EXAM ED Triage Vitals [05/07/24 1841] Temp Heart Rate Resp BP 36.7 C (98.1 F) 101 20 129/88 SpO2 Temp Source Heart Rate Source Patient Position 93 % Temporal Monitor -- BP Location FiO2 (%) -- -- Physical Exam Vitals and nursing note reviewed. Constitutional: General: He is not in acute distress. Appearance: Normal appearance. He is normal weight. He is not ill-appearing or toxic-appearing. HENT: Head: Normocephalic and atraumatic. Right Ear: External ear normal. Left Ear: External ear normal. Mouth/Throat: Mouth: Mucous membranes are moist. Pharynx: Oropharynx is clear. Eyes: Extraocular Movements: Extraocular movements intact. Conjunctiva/sclera: Conjunctivae normal. Pupils: Pupils are equal, round, and reactive to light. Cardiovascular: Rate and Rhythm: Normal rate and regular rhythm. Pulses: Normal pulses. Heart sounds: Normal heart sounds. No murmur heard. Pulmonary: Effort: Pulmonary effort is normal. No respiratory distress. Breath sounds: Normal breath sounds. No stridor. No wheezing or rhonchi. Musculoskeletal: General: No swelling, tenderness, deformity or signs of injury. Normal range of motion. Cervical back: Normal range of motion and neck supple. No rigidity or tenderness. Lymphadenopathy: Cervical: No cervical adenopathy. Skin: General: Skin is warm and dry. Capillary Refill: Capillary refill takes less than 2 seconds. Coloration: Skin is not jaundiced or pale. Findings: No bruising or erythema. Neurological: General: No focal deficit present. Mental Status: He is alert and oriented to person, place, and time. Mental status is at baseline. Psychiatric: Mood and Affect: Mood normal. DIAGNOSTIC RESULTS Procedures/EKG: EKG was reviewed by myself. Physician EKG interpretation can be found in [facility] RADIOLOGY (Per Emergency Physician): Interpretation per the Radiologist below, if available at the time of this note: No orders to display ED BEDSIDE ULTRASOUND: Performed by ED Physician - none LABS: Labs Reviewed SARS-COV-2 ANTIGEN COMPREHENSIVE METABOLIC PANEL CBC (HEMOGRAM) MAGNESIUM ETHANOL DRUGS OF ABUSE All other labs were within normal range or not returned as of this dictation. EMERGENCY DEPARTMENT COURSE and DIFFERENTIAL DIAGNOSIS/MDM: Vitals: Vitals: 05/07/24 1841 BP: 129/88 Pulse: 101 Resp: 20 Temp: 36.7 C (98.1 F) TempSrc: Temporal SpO2: 93% Diagnoses as of 05/07/24 2143 Alcohol use disorder Alcohol withdrawal syndrome with complication, with unspecified complication (HCC) The patient presented with chief complaint of with chief complaint of requesting alcohol detox. Last drink was minutes before arrival to the emergency department. He states he has had blackout episodes from alcohol withdrawal before. Denies any other complaints.. The differential diagnosis associated with this patient's presentation includes alcohol use disorder. Our workup consisted of ordering/reviewing: CBC, CMP, magnesium, ethanol, urine drug screen, COVID antigen. I discussed their care with Dr. Mckeon from detox.. The patient will be Admitted. Patient is in agreement with this plan. Medications - No data to display REVAL: CRITICAL CARE TIME None CONSULTS: None PROCEDURES: Unless otherwise noted below, none Procedures Patients symptoms are consistent with sepsis, severe sepsis, or septic shock (If yes use .sepsiscoremeasure): no FINAL IMPRESSION 1. Alcohol use disorder DISPOSITION Admit 05/07/2024 08:05:30 PM PATIENT REFERRED TO: No follow-up provider specified. DISCHARGE MEDICATIONS: New Prescriptions No medications on file (Comment: Please note this report has been produced using speech recognition software and may contain errors related to that system including errors in grammar, punctuation, and spelling, as well as words and phrases that may be inappropriate. If there are any questions or concerns please feel free to contact the dictating provider for clarification.) JUAN Lang CNP (electronically signed) Emergency Medicine Provider JUAN Lang CNP 05/07/242004 Cosigned by Johnny Hamilton DO at 05/07/2024 11:06 PM EST documented in this encounter [facility] 05-08-2024 Emergency department Note Report to [facility] at bedside. Vitals taken. Protective at bedside for final wanding. Belongings, detox rules and paperwork sent with patient/EMS [facility] 05-07-2024 Emergency department Note Security at bedside for a belongings check [facility] 05-07-2024 Emergency department Note The following are the next steps in your Substance use Treatment Plan: Below are additional resources that you may find beneficial in your treatment: 12-Step: Alcohol Anonymous: [facility]ronaa.org Brennon Anon: [phone]: 12-step program for families & friends of people with addiction. CRISIS: Homeless Hotline: 586.311.3523 [facility] 22/10 line-22/10 OFFICE: [phone] [facility]: [address] [facility], [place] [address] [phone] (24 Hours) Domestic Violence help line anytime: 863.835.4304 Crisis Hotline: 22/10- 518.694.2351 ADM Addiction Helpline: 501.535.6806 (available 8:30 AM to 4:00 PM ) 05-02-1 2--1 helps people across [facility] find local resources when they don't know where to turn for help. We are available 24 hours a day, 7 days a week. For help, simply dial to speak to one of our trained professionals. [facility]OX TREAT[facility]: [facility] [place] [place] [phone] /[facility] Crisis Center: anytime @ [phone] for alcohol & drug addiction help. [facility], [place], [place] [phone] [facility] [place]: [phone] [place]: [phone], [facility] [place]: [phone] [place] [phone] [facility] [place], [place] [phone] [facility] [place], [place]: [phone] [facility], [place], [place] [phone] ext. [phone] [facility], [facility] & detox & Sober living [phone] [place], [place] (pt. must be medically cleared prior to admission in ED) [place] [phone] OUTPATIENT TREATMENT: [facility] @ [place] [phone]. Intensive Outpatient Programs- [facility] [place], [place] [phone] [place], [place] [phone] [facility] [phone] [facility] Addiction Treatment: [place], [place] [phone] or [phone]. [facility]: [phone] [facility], [place]: [phone], [place]: [phone] [facility], [place], [place]: [phone] [facility], [place], [place]: [phone] [facility], [place]: [phone], [place]: [phone] [facility] [place]. [place]: [phone] [facility], [facility] & Sober living [phone] [facility], [place], [place] [phone] Behavioral Health Services: [facility]: [phone]-[phone], [phone], [place]- [phone] [facility], [place]: [phone], [place]: [phone] [facility], [place] [phone] [facility], [place], [place] [phone] [facility], [place], [place] [phone], mady services, dual dx. Tx. with detox. [facility]: [place] [phone] [facility], [place] [phone] [facility] [phone] [facility]: [facility] ([address]): [place] [phone] [place] SHEETS & [place]: [phone] RESIDENTIAL TREATMENT FACILITIES: [facility]: inpt. Or outpt. - [phone] [facility] [facility], [place], [place] [phone] [facility], [place], [place] [phone] [facility] ([facility]) @ [facility] [phone] [facility] Res[facility] tx[address] [place], [place] [phone] (admission coordinated by ADM Gurvinder Landers ext [phone]) [facility] [place], [place]: [phone]; Men's services inpt. & women services - Outpt. [facility], [place], [place] [phone] [facility], [place], [place] [phone] [facility], [place], [place] [phone] [facility], [place], [place] [phone] [facility], [place], [place] [phone] [facility] [place], [place], [place] [phone] [facility], [place], [place] [phone] [place], [place] [phone] [facility], [facility] & detox & Sober living [phone] OTHER SERVICES: [employer]: [phone] [facility]: [phone] ext. [phone] Medicaid Health Coverage: DOCUSYS. S: [phone] [facility] 05-07-[address] Hamilton at bedside speaking with pt. [facility] 05-07-2024 Note Formatting of this n ote is different from the original. Emergency Department Encounter [facility] ED Patient: Maria De Jesus Hogan : 1965 Date of Evaluation: 05/07/2024 ED Supervising Physician: Johnny Hamilton DO I personally evaluated Maria De Jesus Hogan and made/approved the management plan and take responsibility for the patient management. This will serve as my Supervisory note and shared attestation. I did perform a substantive portion of the visit including all aspects of the Medical Decision Making. I wore appropriate PPE for the entirety of this encounter. In brief, Maria De Jesus Hogan is a 58 y.o. that presents to the emergency department for detox from alcohol. He has tried detox multiple times in the past. Last drink was just prior to arrival. He states he feels like he needs to do something different as his family is falling apart and he has been having a lot of problems. He states he is ready to detox. Focused exam: Wake alert and oriented, no distress, resting comfortably, having some rock machelle and a sandwich during exam. He has no tremors, no signs of withdrawals. Awake alert and oriented, ECS 15. No abdominal distention, speaking clear sentences, abdomen nontender. Brief ED course/MDM: Patient presents to emergency department for chief complaint of requesting alcohol detox. Last drink was just prior to arrival. Labs obtained here, spoke with detox , will accept. Labs reveal no significant electrolyte derangements. Alcohol level 351, urine drug screen negative. Patient remained stable here. Diagnoses as of 05/07/242305 Alcohol use disorder Alcohol withdrawal syndrome with complication, with unspecified complication (HCC) All diagnostic, treatment, and disposition decisions were made by myself in conjunction with the LENY. I also supervised laboy portions of any procedures performed by the LENY. For all further details of the patient's emergency department visit, please see their documentation. (Comment: Please note this report has been produced using speech recognition software and may contain errors related to that system including errors in grammar, punctuation, and spelling, as well as words and phrases that may be inappropriate. If there are any questions or concerns please feel free to contact the dictating provider for clarification.) Johnny Hamilton DO [employer] Johnny Hamilton DO 05/07/24 [address] [place] Phone: 05-07-2024 Note Formatting of this n ote is different from the original. Emergency Department Encounter [facility] ED Patient: Maria De Jesus Hogan : 1965 Date of Evaluation: 05/07/2024 ED Supervising Physician: Johnny Hamilton DO I personally evaluated Maria De Jesus Hogan and made/approved the management plan and take responsibility for the patient management. This will serve as my Supervisory note and shared attestation. I did perform a substantive portion of the visit including all aspects of the Medical Decision Making. I wore appropriate PPE for the entirety of this encounter. In brief, Maria De Jesus Hogan is a 58 y.o. that presents to the emergency department for detox from alcohol. He has tried detox multiple times in the past. Last drink was just prior to arrival. He states he feels like he needs to do something different as his family is falling apart and he has been having a lot of problems. He states he is ready to detox. Focused exam: Wake alert and oriented, no distress, resting comfortably, having some rock machelle and a sandwich during exam. He has no tremors, no signs of withdrawals. Awake alert and oriented, ECS 15. No abdominal distention, speaking clear sentences, abdomen nontender. Brief ED course/MDM: Patient presents to emergency department for chief complaint of requesting alcohol detox. Last drink was just prior to arrival. Labs obtained here, spoke with detox , will accept. Labs reveal no significant electrolyte derangements. Alcohol level 351, urine drug screen negative. Patient remained stable here. Diagnoses as of 05/07/242305 Alcohol use disorder Alcohol withdrawal syndrome with complication, with unspecified complication (HCC) All diagnostic, treatment, and disposition decisions were made by myself in conjunction with the LENY. I also supervised laboy portions of any procedures performed by the LENY. For all further details of the patient's emergency department visit, please see their documentation. (Comment: Please note this report has been produced using speech recognition software and may contain errors related to that system including errors in grammar, punctuation, and spelling, as well as words and phrases that may be inappropriate. If there are any questions or concerns please feel free to contact the dictating provider for clarification.) Johnny Hamilton DO [employer] Johnny Hamilton DO 05/07/242305 [facility] [employer] Phone: 05-07-2024 Physician Emergency department Note EMERGENCY DEPARTMENT ENCOUNTER Pt Name: Maria De Jesus Hogan Birthdate 1965 Date of evaluation: 05/07/2024 ED Provider: Shelly Clarke APRN - JAMAL This patient was seen in conjunction with Dr. Hamilton CHIEF COMPLAINT Chief Complaint Patient presents with Alcohol Problem Patient presents for detox from alcohol. 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 Patient drinks 6-9 tall boys a day. HISTORY OF PRESENT ILLNESS (Location/Symptom, Timing/Onset, Context/Setting, Quality, Duration, Modifying Factors, Severity) Note limiting factors. I wore appropriate PPE for the entirety of this encounter. HPI Maria De Jesus Hogan is a 58 y.o. who presents to the emergency department with chief complaint of requesting alcohol detox. Last drink was minutes before arrival to the emergency department. He states he has had blackout episodes from alcohol withdrawal before. Denies any other complaints. Nursing Notes were reviewed. Limitations to history: None Outside historians: None REVIEW OF SYSTEMS Review of Systems Constitutional: Negative for activity change, appetite change, chills and fever. HENT: Negative for congestion, nosebleeds, postnasal drip, sore throat and trouble swallowing. Eyes: Negative for pain and visual disturbance. Respiratory: Negative for cough and shortness of breath. Cardiovascular: Negative for chest pain. Gastrointestinal: Negative for abdominal pain, nausea and vomiting. Genitourinary: Negative for dysuria, flank pain, hematuria, penile discharge, scrotal swelling and testicular pain. Musculoskeletal: Negative for arthralgias, back pain and myalgias. Skin: Negative for rash and wound. Neurological: Negative for dizziness, syncope, weakness and light-headedness. Psychiatric/Behavioral: Negative for agitation and confusion. All other systems reviewed and are negative. Pertinent positives and negatives as per HPI. PAST MEDICAL HISTORY Past Medical History: Diagnosis Date Alcohol abuse Alcohol dependence with withdrawal (HCC) 08/31/2019 Alcohol intoxication without use disorder, uncomplicated (HCC) 10/01/2019 Alcohol use disorder 09/10/2022 Alcohol withdrawal syndrome with complication (HCC) 09/27/2021 Alcohol withdrawal syndrome without complication (HCC) Alcohol withdrawal with inpatient treatment without complication (HCC) 01/20/2024 Alcohol withdrawal, uncomplicated (HCC) 08/31/2019 Alcohol withdrawal, with unspecified complication (HCC) 10/02/2019 Alcohol withdrawal, with unspecified complication (HCC) 10/02/2019 Alcoholism (CMS/HCC) (HCC) Anxiety Arthritis Maria De Jesus Cerebral artery occlusion with cerebral infarction (HCC) Cerebrovascular disease Depression GERD (gastroesophageal reflux disease) Maria De Jesus Hypertension Insomnia SURGICAL HISTORY Past Surgical History: Procedure Laterality Date COLONOSCOPY 06/10/2020 EGD/Dr Madison/[facility] REMOVAL face EGD (HISTORICAL) 07/23/2022 Dr. Estrella-[facility] SMALL INTESTINE SURGERY UPPER GASTROINTESTINAL ENDOSCOPY 09/27/2021 normal WISDOM TOOTH EXTRACTION CURRENT MEDICATIONS Previous Medications ALBUTEROL 108 (90 BASE) MCG/ACT INHALER Inhale 2 puffs every 6 hours as needed for wheezing or shortness of breath. CALCIPOTRIENE (DOVONEX) 0.005 % CREAM Apply topically 2 times daily. CLOBETASOL (TEMOVATE) 0.05 % CREAM Apply topically 2 times daily. FOLIC ACID (FOLVITE) 1 MG TABLET Take 1 tablet (1 mg) by mouth daily. GABAPENTIN (NEURONTIN) 300 MG CAPSULE Take 2 capsules (600 mg) by mouth 3 times daily. MELATONIN 5 MG TABLET Take 1 tablet (5 mg) by mouth Nightly. MULTIPLE VITAMINS TABLET Take 1 tablet by mouth daily. NALTREXONE (DEPADE) 50 MG TABLET Take 1 tablet (50 mg) by mouth daily. NICOTINE POLACRILEX (NICOTINE MINI) 4 MG LOZENGE Dissolve 1 lozenge (4 mg) in the mouth every 2 hours as needed for smoking cessation. PANTOPRAZOLE (PROTONIX) 40 MG EC TABLET Take 1 tablet (40 mg) by mouth daily. THIAMINE MONONITRATE (VITAMIN B1) 100 MG TABLET Take 1 tablet (100 mg) by mouth daily. ALLERGIES Bee venom, Nickel, and Tramadol FAMILY HISTORY Family History Problem Relation Name Age of Onset Depression Sister Maria De Jesus Hogan Other ([id number]) Sister Maria De Jesus Hogan agoraphobia Arthritis Sister Maria De Jesus Hogan Cancer Mother Maria De Jesus Hogan colon rectal cancer; dx after age 50 Other ([id number]) Mother Maria De Jesus Hogan alcoholism Alcohol abuse Mother Maria De Jesus Hogan Stroke Mother Maria De Jesus Hogan Other ([id number]) Father Maria De Jesus Hogan h/o rheumatic fever, cardiac arrest due to bee sting Hypertension Father Maria De Jesus Hogan SOCIAL HISTORY Social History Socioeconomic History Marital status: Tobacco Use Smoking status: Every Day Current packs/day: 2.00 Average packs/day: 2.0 packs/day for 38.6 years (77.1 ttl pk-yrs) Types: Cigarettes Start date: 10/10/1985 Smokeless tobacco: Never Vaping Use Vaping status: Never Used Substance and Sexual Activity Alcohol use: Yes Comment: Detox home for a week 0 drinks 02/17/23, 6 tall boys/ daily 11/28/23 Drug use: No Sexual activity: Yes Partners: Female control/protection: Other Comment: live with Social Drivers of Health Financial Resource Strain: Low Risk (01/28/2024) Overall Financial Resource Strain (CARDIA) Difficulty of Paying Living Expenses: Not very hard Recent Concern: Financial Resource Strain - Medium Risk (01/20/2024) Overall Financial Resource Strain (CARDIA) Difficulty of Paying Living Expenses: Somewhat hard Food Insecurity: No Food Insecurity (04/10/2024) Hunger Vital Sign Worried About Running Out of Food in the Last Year: Never true Ran Out of Food in the Last Year: Never true Transportation Needs: No Transportation Needs (04/10/2024) PRAPARE - Transportation Lack of Transportation (Medical): No Lack of Transportation (Non-Medical): No Physical Activity: Inactive (01/20/2024) Exercise Vital Sign Days of Exercise per Week: 0 days Minutes of Exercise per Session: 0 min Stress: No Stress Concern Present (01/20/2024) [place] [employer] - Occupational Stress Questionnaire Feeling of Stress : Not at all Social Connections: Unknown (01/28/2024) Social Connection and Isolation Panel [NHANES] Frequency of Communication with Friends and Family: Twice a week Frequency of Social Gatherings with Friends and Family: Patient unable to answer Attends Synagogue Services: Never Active Member of Clubs or Organizations: No Attends Club or Organization Meetings: Never Marital Status: Recent Concern: Social Connections - Socially Isolated (01/20/2024) Social Connection and Isolation Panel [NHANES] Frequency of Communication with Friends and Family: Never Frequency of Social Gatherings with Friends and Family: Never Attends Synagogue Services: Never Active Member of Clubs or Organizations: No Attends Club or Organization Meetings: Never Marital Status: Intimate Partner Violence: Not At Risk (04/10/2024) Humiliation, Afraid, Rape, and Kick questionnaire Fear of Current or Ex-Partner: No Emotionally Abused: No Physically Abused: No Sexually Abused: No Housing Stability: Low Risk (04/10/2024) Housing Stability Vital Sign Unable to Pay for Housing in the Last Year: No Number of Times Moved in the Last Year: 0 Homeless in the Last Year: No Recent Concern: Housing Stability - High Risk (01/28/2024) Housing Stability Vital Sign Unable to Pay for Housing in the Last Year: No Number of Times Moved in the Last Year: 2 Homeless in the Last Year: No SCREENINGS PHYSICAL EXAM ED Triage Vitals [05/07/24 1841] Temp Heart Rate Resp BP 36.7 C (98.1 F) 101 20 129/88 SpO2 Temp Source Heart Rate Source Patient Position 93 % Temporal Monitor -- BP Location FiO2 (%) -- -- Physical Exam Vitals and nursing note reviewed. Constitutional: General: He is not in acute distress. Appearance: Normal appearance. He is normal weight. He is not ill-appearing or toxic-appearing. HENT: Head: Normocephalic and atraumatic. Right Ear: External ear normal. Left Ear: External ear normal. Mouth/Throat: Mouth: Mucous membranes are moist. Pharynx: Oropharynx is clear. Eyes: Extraocular Movements: Extraocular movements intact. Conjunctiva/sclera: Conjunctivae normal. Pupils: Pupils are equal, round, and reactive to light. Cardiovascular: Rate and Rhythm: Normal rate and regular rhythm. Pulses: Normal pulses. Heart sounds: Normal heart sounds. No murmur heard. Pulmonary: Effort: Pulmonary effort is normal. No respiratory distress. Breath sounds: Normal breath sounds. No stridor. No wheezing or rhonchi. Musculoskeletal: General: No swelling, tenderness, deformity or signs of injury. Normal range of motion. Cervical back: Normal range of motion and neck supple. No rigidity or tenderness. Lymphadenopathy: Cervical: No cervical adenopathy. Skin: General: Skin is warm and dry. Capillary Refill: Capillary refill takes less than 2 seconds. Coloration: Skin is not jaundiced or pale. Findings: No bruising or erythema. Neurological: General: No focal deficit present. Mental Status: He is alert and oriented to person, place, and time. Mental status is at baseline. Psychiatric: Mood and Affect: Mood normal. DIAGNOSTIC RESULTS Procedures/EKG: EKG was reviewed by myself. Physician EKG interpretation can be found in [facility] RADIOLOGY (Per Emergency Physician): Interpretation per the Radiologist below, if available at the time of this note: No orders to display ED BEDSIDE ULTRASOUND: Performed by ED Physician - none LABS: Labs Reviewed SARS-COV-2 ANTIGEN COMPREHENSIVE METABOLIC PANEL CBC (HEMOGRAM) MAGNESIUM ETHANOL DRUGS OF ABUSE All other labs were within normal range or not returned as of this dictation. EMERGENCY DEPARTMENT COURSE and DIFFERENTIAL DIAGNOSIS/MDM: Vitals: Vitals: 05/07/24 1841 BP: 129/88 Pulse: 101 Resp: 20 Temp: 36.7 C (98.1 F) TempSrc: Temporal SpO2: 93% Diagnoses as of 05/07/24 2143 Alcohol use disorder Alcohol withdrawal syndrome with complication, with unspecified complication (HCC) The patient presented with chief complaint of with chief complaint of requesting alcohol detox. Last drink was minutes before arrival to the emergency department. He states he has had blackout episodes from alcohol withdrawal before. Denies any other complaints.. The differential diagnosis associated with this patient's presentation includes alcohol use disorder. Our workup consisted of ordering/reviewing: CBC, CMP, magnesium, ethanol, urine drug screen, COVID antigen. I discussed their care with Dr. Mckeon from detox.. The patient will be Admitted. Patient is in agreement with this plan. Medications - No data to display REVAL: CRITICAL CARE TIME None CONSULTS: None PROCEDURES: Unless otherwise noted below, none Procedures Patients symptoms are consistent with sepsis, severe sepsis, or septic shock (If yes use .sepsiscoremeasure): no FINAL IMPRESSION 1. Alcohol use disorder DISPOSITION Admit 05/07/2024 08:05:30 PM PATIENT REFERRED TO: No follow-up provider specified. DISCHARGE MEDICATIONS: New Prescriptions No medications on file (Comment: Please note this report has been produced using speech recognition software and may contain errors related to that system including errors in grammar, punctuation, and spelling, as well as words and phrases that may be inappropriate. If there are any questions or concerns please feel free to contact the dictating provider for clarification.) JUAN Lang CNP (electronically signed) Emergency Medicine Provider JUAN Lang CNP 05/07/242004 Cosigned by Johnny Hamilton DO at 05/07/2024 11:06 PM EST [facility] [employer] Phone: 04-21-2024 Note LVM letting the anjali ent know they were referred for smoking cessation counseling. Gave contact information, will provide follow up. Letter & education mailed to the home address. [facility] 04-12-2024 Note [facility] 04-12-2024 Plan of care note Problem: Pain - Adult Goal: Verbalizes/displays adequate comfort level or baseline comfort level Outcome: Completed Problem: Safety - Adult Goal: Free from fall injury Outcome: Completed Problem: Problem Interventions Goal: Assess Nutritional Intake Outcome: Completed [facility] 04-12-2024 Miscellaneous Notes Problem: Pain - Adult Goal: Verbalizes/displays adequate comfort level or baseline comfort level Outcome: Completed Problem: Safety - Adult Goal: Free from fall injury Outcome: Completed Problem: Problem Interventions Goal: Assess Nutritional Intake Outcome: Completed Pt educated about his plan of care Problem: Pain - Adult Goal: Verbalizes/displays adequate comfort level or baseline comfort level Outcome: Progressing Problem: Safety - Adult Goal: Free from fall injury Outcome: Progressing Problem: Problem Interventions Goal: Assess Nutritional Intake Outcome: Progressing Problem: Pain - Adult Goal: Verbalizes/displays adequate comfort level or baseline comfort level Outcome: Progressing Flowsheets (Taken 04/11/2024 8300) Verbalizes/displays adequate comfort level or baseline comfort level: Encourage patient to monitor pain and request assistance Assess pain using appropriate pain scale Problem: Safety - Adult Goal: Free from fall injury Outcome: Progressing documented in this encounter [facility] 04-12-2024 History of Present illness Narrative Images from the original note were not included. ADDICTION MEDICINE PROGRESS NOTE Patient: Maria De Jesus Hogan Problem List: Principal Problem: Alcoholic intoxication without complication (CMS/HCC) (HCC) SUBJECTIVE Chief Complaint Patient presents with Alcohol Problem Patient seeking detox from ETOH. 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 Last 4 CIwA scores per RN assessments 2 - 1 - 0 - 1 Interim History Seen and examined. Notes he is feeling much better. Is requesting discharge. Notes no concerns. No headache, changes in vision, cough, congestion, rhinorrhea, sore throat, N/V, abd pain, diarrhea, constipation, CP or SOB. No SI/HI or AVH. Asking for naltrexone. Review of Systems A 14 system ROS was collected and is negative unless otherwise noted above. OBJECTIVE Vitals Vitals: 04/11/24 1617 04/11/24 2000 04/12/24 0513 04/12/24 0710 BP: 140/95 145/98 134/95 BP Location: Left arm Patient Position: Sitting Pulse: 107 80 87 Resp: 18 14 16 Temp: 36.6 C (97.8 F) 36.5 C (97.7 F) 36.3 C (97.3 F) TempSrc: Temporal Temporal Temporal SpO2: 96% 94% 97% Weight: Height: 1.803 m (5' 11) Physical Exam Constitutional: Appearance: Normal appearance. HENT: Head: Normocephalic and atraumatic. Nose: Congestion present. Mouth/Throat: Mouth: Mucous membranes are dry. Eyes: Extraocular Movements: Extraocular movements intact. Pupils: Pupils are equal, round, and reactive to light. Cardiovascular: Rate and Rhythm: Normal rate and regular rhythm. Pulmonary: Effort: Pulmonary effort is normal. No respiratory distress. Abdominal: Palpations: Abdomen is soft. Tenderness: There is no abdominal tenderness. Musculoskeletal: Cervical back: Normal range of motion and neck supple. Skin: General: Skin is warm and dry. Neurological: Mental Status: He is alert and oriented to person, place, and time. Mental status is at baseline. Cranial Nerves: No cranial nerve deficit. Psychiatric: Attention and Perception: He does not perceive auditory or visual hallucinations. Thought Content: Thought content is not paranoid or delusional. Thought content does not include homicidal or suicidal ideation. Thought content does not include homicidal or suicidal plan. Judgment: Judgment is impulsive and inappropriate. Medications Home Meds Current Outpatient Medications Medication Instructions albuterol 108 (90 Base) MCG/ACT inhaler 2 puffs, Inhalation, Every 6 hours PRN calcipotriene (Dovonex) 0.005 % cream Topical, 2 times daily clobetasol (Temovate) 0.05 % cream Topical, 2 times daily gabapentin (NEURONTIN) 600 mg, Oral, 3 times daily melatonin 5 mg, Oral, Nightly Multiple Vitamins tablet 1 tablet, Oral, Daily naltrexone (DEPADE) 50 mg, Oral, Daily naltrexone ER (VIVITROL) 380 mg, IntraMUSCular, Once nicotine polacrilex (NICOTINE MINI) 4 mg, Mouth/Throat, Every 2 hour PRN pantoprazole (PROTONIX) 40 mg, Oral, Daily Thiamine Mononitrate (VITAMIN B1) 100 mg, Oral, Daily Scheduled Inpatient Meds clobetasol, , Topical, BID cloNIDine, 0.1 mg, Oral, Q4H folic acid, 1 mg, Oral, Daily melatonin, 10 mg, Oral, Nightly pantoprazole, 40 mg, Oral, Daily PHENobarbital, 64.8 mg, Oral, q6h therapeutic multivitamin-minerals, 1 tablet, Oral, Daily thiamine, 100 mg, Oral, Daily PRN Inpatient Meds PRN medications: albuterol, dicyclomine, hydrOXYzine pamoate, ibuprofen, LORazepam OR LORazepam OR LORazepam OR LORazepam OR [DISCONTINUED] LORazepam OR [DISCONTINUED] LORazepam OR [DISCONTINUED] LORazepam OR [DISCONTINUED] LORazepam, nicotine polacrilex, ondansetron ODT OR ondansetron, polyethylene glycol (PEG) 3350, traZODone Continuous Inpatient Infusions Recent Imaging ECG 12 lead Result Date: 04/09/2024 Sinus rhythm Borderline prolonged QT interval No significant changes from prior EKG Electronically Signed On 04-09-2024 22:41:09 EST by Kolby [facility] Labs CBC: Recent Labs 04/09/24203804/11/24 1155 WBC 4.4 4.3 HGB 16.2 14.6 PLT 214 180 MCV 95.3 95.9 RDW 13.0 12.7 BMP: Recent Labs 04/09/24203804/11/24 1155 NA 135* 132* K 4.4 4.1 CL 99 100 CO2 25 22 BUN 5* 6* CREATININE 0.65* 0.66* CALCIUM 8.9 8.7 MG 2.0 1.8 PHOS -- 3.7 Liver Profile: Recent Labs 04/09/24203804/11/24 1155 AST 136* 73* ALT 189* 122* BILITOT 0.5 0.7 ALKPHOS 94 82 PROT 7.1 6.3* LIPASE 44 -- Glucose: Recent Labs 04/09/24203804/11/24 1155 GLUCOSE 91 100 Lactic Acid: No lab exists for component: LACTA Cardiac Injury Profile: No results for input(s): CKTOTAL, CKMB, TROPONINI in the last 72 hours. Last 24 Hours: Recent Results (from the past 24 hours) Comprehensive metabolic panel Collection Time: 04/11/24 11:55 AM Result Value Ref Range SODIUM 132 (L) 136 - 145 mmol/L POTASSIUM 4.1 3.5 - 5.1 mmol/L CHLORIDE 100 98 - 107 mmol/L CARBON DIOXIDE 22 22 - 29 mmol/L ANION GAP 10 3 - 13 mmol/L UREA NITROGEN 6 (L) 9 - 23 mg/dL CREATININE 0.66 (L) 0.72 - 1.25 mg/dL GLUCOSE 100 74 - 100 mg/dL CALCIUM 8.7 8.4 - 10.2 mg/dL AST (SGOT) 73 (H) <34 U/L ALT 122 (H) <40 U/L ALKALINE PHOSPHATASE 82 40 - 150 U/L ALBUMIN 3.5 3.5 - 5.0 g/dL BILIRUBIN, TOTAL 0.7 <1.2 mg/dL TOTAL PROTEIN 6.3 (L) 6.4 - 8.3 g/dL eGFR >90.0 >60.0 mL/min/1.73m*2 CBC auto differential Collection Time: 04/11/24 11:55 AM Result Value Ref Range Auto WBC 4.3 3.6 - 10.7 10*3/uL RBC 4.43 4.40 - 5.90 10*6/uL Hemoglobin 14.6 13.0 - 18.0 g/dL Hematocrit 42.5 40.0 - 52.0 % MCV 95.9 77.0 - 99.0 fL MCH 33.0 26.0 - 34.0 pg MCHC 34.4 30.5 - 36.0 % RDW 12.7 11.5 - 15.0 % Platelets 180 140 - 440 10*3/uL MPV 9.2 9.0 - 12.7 fL nRBC 0.0 0.0 - 2.0 /100 WBCs Neutrophils Relative 64.9 38.0 - 82.0 % Lymphocytes Relative 19.7 15.0 - 45.0 % Monocytes Relative 12.4 5.0 - 13.0 % Eosinophils Relative 1.9 0.0 - 6.0 % Basophils Relative 0.9 0.0 - 2.0 % Immature Grans % 0.2 0.0 - 2.0 % Neutrophils Absolute 2.8 1.8 - 7.5 10*3/uL Lymphocytes Absolute 0.8 (L) 1.0 - 4.3 10*3/uL Monocytes Absolute 0.5 0.0 - 0.9 10*3/uL Eosinophils Absolute 0.1 0.0 - 0.5 10*3/uL Basophils Absolute 0.0 0.0 - 0.2 10*3/uL Immature Grans Absolute 0.0 <0.1 10*3/uL Magnesium Collection Time: 04/11/24 11:55 AM Result Value Ref Range MAGNESIUM 1.8 1.6 - 2.6 mg/dL Phosphorus Collection Time: 04/11/24 11:55 AM Result Value Ref Range PHOSPHORUS 3.7 2.3 - 4.7 mg/dL ASSESSMENT & PLAN Severe Alcohol use disorder Tobacco use disorder Counseled patient on biopsychosocial consequences of substance use. Encouraged professional chemical dependency treatment. Discussed aftercare including AA/NA, 1:1 counseling, IOP and residential treatment Discussed MAT including Acamprosate, Disulfiram, Naltrexone and Vivitrol Follow up plan for addiction management discussed with patient: Remains disinterested in Aftercare. Requesting Naltrexone on discharge. Alcohol withdrawal - progressing as expected. Ishan dependence with withdrawal Last use of ETOH was on the way to [facility] ED. Phenobarbital taper to manage ETOH withdrawal symptoms. Ativan adjunct: Ativan 1mg Q1H PO / IV PRN for CIWA score 8 to 10. Ativan 2mg Q1H PO / IV PRN for CIWA score 11 or greater. Folate / Thiamine replacement CIWA scores per unit protocol. PRN medications for withdrawal symptom management: Ibuprofen 600mg PO Q6H PRN pain 1-10. Bentyl 20mg Po TID PRN abd cramps Melatonin 10mg PO at bedtime Trazodone 50mg Po at bedtime PRN sleep PPI 40mg PO Daily NRT Mild hyponatremia Stable. Elevated LFTs Improving. 2/2 ETOH abuse Disposition: Resolution of withdrawal symptoms - Progressing as expected. Medical stabilization per IM and ADM Labs/tests/tasks to review: N/A Tray Setter to coordinate care with: N/A. A total of 35 minutes were spent reviewing the patient's records, evaluating the patient, entering orders, coordinating care with the treatment team, and creating this note. Nutrition Assessment Type and Reason for Visit: Initial, Positive Nutrition Screen Nutrition Recommendations/Plan: Per mnt protocol will modify diet to ROGELIO -per pt request Please continue to record meal intakes in RN Flowsheets MVI, folic acid, thiamine per RD to monitor po intake, labs, weight -follow up weekly Malnutrition Assessment: Malnutrition Status: At risk for malnutrition (Comment) (alcohol abuse) Context: Social/Environmental Circumstances Findings of the 6 clinical characteristics of malnutrition: Energy Intake: (pt reports decreased po intake over past month or so; currently improved and tolerating meals with good appetite) Weight Loss: Body Fat Loss: No significant body fat loss Muscle Mass Loss: No significant muscle mass loss Fluid Accumulation: No significant fluid accumulation Financial Institution President Strength: Not Performed Nutrition Assessment: 58 y.o. male admits with alcohol dependence with withdrawals/ Pt seeking detox, elevated LFTs, hyponatremia. Addiction Med assessed. Pt reports low appetite over past month or so which has now improved -Pt states I'm eating like a horse. Pt estimates he has lost ~10 lb in same timeframe. pt expresses frustration on 2 gm sodium diet and requesting to have discontinued. pmhx includes CVA, alcohol abuse, HTN, GERD. Pt states likely discharge tomorrow Estimated Daily Nutrient Needs: Energy Requirements Based On: Kcal/kg Weight Used for Energy Requirements: [place] Weight for Energy Calculation (kg): 78 kg Total Energy Requirements (kcals/day): 1237-5813 (25-30) Weight Used for Protein Requirements: [place] Weight in Kg Used for Protein Requirements: 78 kg Estimated Total Protein (g/day): 78-94 (1.0-1.2) Estimated Daily Total Fluid (ml/day): per MD Nutrition Related Findings: no edema, bm 04/10. na 132, bun 6/ cr .66, ast 73, alt 122. meds folic acid, MVI, thiamine. 3% wt loss >1 month not considered clinically significant -unable to confirm pts stated wt loss at this time per wt records Wound Type: None Current Nutrition Therapies: Adult diet Regular; No Added Salt (3-4 gm) Current Oral Intake Average Meal Intake: 76-100% Average Supplements Intake: None Ordered (pt declines at this time) Anthropometric Measures: Height: 180.3 cm (5' 11) Current Body Weight: 102 kg (225 lb) Weight Source: Bed Scale Admission Body Weight: 102 kg (225 lb) Usual Body Weight: 107 kg (235 lb) % Weight Change (Calculated): -4.3 [place] Body Weight (lbs) (Calculated): 172 lbs [place] Body Weight (Kg) (Calculated): 78 kg % [place] Body Weight (Calculated): 130.8 % BMI (kg/m2) (Calculated): 31.4 Weight Adjustment For: No Adjustment BMI Categories: Obese Class 1 (BMI 30.0-34.9) Nutrition Diagnosis: Inadequate protein-energy intake related to (alcohol abuse) as evidenced by poor intake prior to admission (now improved) Nutrition Interventions: Nutrition Education/Counseling: No recommendation at this time Coordination of Nutrition Care: Continue to monitor while inpatient Plan of Care discussed with: Pt Goals: Goals: PO intake 75% or greater, by next RD assessment Nutrition Monitoring and Evaluation: Behavioral-Environmental Outcomes: Readiness for Change Food/Nutrient Intake Outcomes: Food and Nutrient Intake Physical Signs/Symptoms Outcomes: Biochemical Data, Chewing or Swallowing, GI Status, Nausea or Vomiting, Fluid Status or Edema, Hemodynamic Status, Nutrition Focused Physical Findings, Skin, Weight Discharge Planning: Nanette Munson RD Contact: *[phone] or via Secure Chat Hospitalist Progress Note 04/11/2024 [phone]: Please page me ([phone]) for patient care issues. [phone]: Please page IMS night Hospitalist for any issues. Subjective: Admit Date: 04/09/2024 PCP: Lynda Rasheed MD Room#: 232-01/232-01 A Interval History: Patient is sleeping comfortably, no signs of distress noticed No other significant overnight issues. Adult diet Regular; Low Sodium (2 gm) @[id number]@ 24HR INTAKE/OUTPUT: Intake/Output Summary (Last 24 hours) at 04/11/2024 1422 Last data filed at 04/10/2024 2100 Gross per 24 hour Intake 355 ml Output -- Net 355 ml Past Medical History: Past Medical History: Diagnosis Date Alcohol abuse Alcohol dependence with withdrawal (HCC) 08/31/2019 Alcohol intoxication without use disorder, uncomplicated (HCC) 10/01/2019 Alcohol use disorder 09/10/2022 Alcohol withdrawal syndrome with complication (HCC) 09/27/2021 Alcohol withdrawal syndrome without complication (HCC) Alcohol withdrawal with inpatient treatment without complication (HCC) 01/20/2024 Alcohol withdrawal, uncomplicated (HCC) 08/31/2019 Alcohol withdrawal, with unspecified complication (HCC) 10/02/2019 Alcohol withdrawal, with unspecified complication (HCC) 10/02/2019 Alcoholism ([facility]/HCC) (HCC) Anxiety Arthritis Maria De Jesus Cerebral artery occlusion with cerebral infarction (HCC) Cerebrovascular disease Depression GERD (gastroesophageal reflux disease) Maria De Jesus Hypertension Insomnia LABS: CBC: Recent Labs 04/09/24203804/11/24 1155 WBC 4.4 4.3 RBC 4.89 4.43 HGB 16.2 14.6 HCT 46.6 42.5 MCV 95.3 95.9 RDW 13.0 12.7 PLT 214 180 BMP: Recent Labs 04/09/24203804/11/24 1155 NA 135* 132* K 4.4 4.1 CL 99 100 CO2 25 22 BUN 5* 6* CREATININE 0.65* 0.66* GLUCOSE 91 100 CALCIUM 8.9 8.7 ANIONGAP 11 10 LIVER PROFILE: Recent Labs 04/09/24203804/11/24 1155 AST 136* 73* ALT 189* 122* BILITOT 0.5 0.7 ALKPHOS 94 82 PROT 7.1 6.3* PT/INR: No results for input(s): PROTIME, INR in the last 72 hours. CARDIAC ENZYMES: No results for input(s): TROPONINI in the last 72 hours. Procalcitonin: No results found for: PROCAL COVID-19 PCR: No results for input(s): COVID19 in the last 72 hours. Objective: Vitals: BP 157/98 (BP Location: Right arm, Patient Position: Lying) Pulse 90 Temp 36.4 C (97.6 F) (Temporal) Resp 22 Ht 5' 11 (1.803 m) Wt 225 lb 12 oz (102 kg) SpO2 93% BMI 31.49 kg/m Pulse Ox: SpO2 Av.8 % Min: 92 % Max: 93 % Supplemental O2: General appearance: No apparent distress, appears stated age and cooperative with exam HEENT: Normal cephalic, atraumatic without obvious deformity. Pupils equal, round, and reactive to light. Extra ocular muscles intact. Conjunctivae/corneas clear. Neck: Supple, with full range of motion. No jugular venous distention. Trachea midline. No lymphadenopathy. Respiratory: Normal respiratory effort. Clear to auscultation, bilaterally without Rales/Wheezes/Rhonchi. Cardiovascular: Regular rate and rhythm with normal S1/S2 without murmurs, rubs or gallops. Abdomen: Soft, non-tender, non-distended with normal bowel sounds. No rebound or guarding. Musculoskeletal: No clubbing, cyanosis or edema bilaterally. Full range of motion without deformity, +2 peripheral pulses in all extremities. Skin: Skin color, texture, turgor normal. No rashes or lesions. Neurologic: Neurovascularly intact without any focal sensory/motor deficits. Cranial nerves: II-XII intact, grossly non-focal. Medications: clobetasol, , Topical, BID cloNIDine, 0.1 mg, Oral, Q4H folic acid, 1 mg, Oral, Daily melatonin, 10 mg, Oral, Nightly pantoprazole, 40 mg, Oral, Daily PHENobarbital, 64.8 mg, Oral, q6h therapeutic multivitamin-minerals, 1 tablet, Oral, Daily thiamine, 100 mg, Oral, Daily Assessment Ethanol dependence with withdrawals. Elevated LFTs. Hyponatremia. History of: Hypertension Hyperlipidemia. Gastroesophageal medical disease Depression/anxiety. Plan: Currently patient is undergoing alcohol detox. On a phenobarbital and CIWA protocol, tolerating well. Addiction medicine is managing detox protocol. Continue to monitor LFTs. Sodium levels are stable, monitor with BMP. Blood pressure fairly well-controlled with current regimen. Follow-up CBC BMP ordered. DVT prophylaxis: Encouraging ambulation. Disposition: Possible discharge home in next 1 to 2 days. -am labs, replace lytes prn -increase activity -DVT prophylaxis: [] Lovenox [] Heparin [] SCDs [x] Encourage ambulation [] Already on Anticoagulation Advance Directive: Full Code Discharge planning: TBD Redd Teixeira MD Division of Hospitalist Medicine Inpatient Medical Services[facility]: [phone] Images from the original note were not included. ADDICTION MEDICINE PROGRESS NOTE Patient: Maria De Jesus Hogan Problem List: Principal Problem: Alcoholic intoxication without complication (CMS/HCC) (HCC) SUBJECTIVE Chief Complaint Patient presents with Alcohol Problem Patient seeking detox from ETOH. 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 Last 4 CIWA scores per RN assessments - Interim History Seen and examined. Slept well overnight. No major concerns reported this AM. No headache, changes in vision, cough, congestion, rhinorrhea, sore throat, N/V, abd pain, CP or SOB. No SI/Hi or AVH. Is upset about low sodium diet. Remains mildly tremulous and diaphoretic. Review of Systems A 14 system ROS was collected and is negative unless otherwise noted above. OBJECTIVE Vitals Vitals: 04/10/24 1947 04/10/243 04/11/24 0000 04/11/24 0339 BP: (!) 160/101 138/90 (!) 156/107 BP Location: Right arm Right arm Right arm Patient Position: Pulse: 107 94 91 Resp: 16 16 15 Temp: 36.7 C (98.1 F) (!) 35.6 C (96 F) 36.1 C (97 F) TempSrc: Temporal Temporal Temporal SpO2: 93% 93% 92% Weight: 102 kg (225 lb 12 oz) Height: 1.803 m (5' 11) Physical Exam Constitutional: Appearance: He is diaphoretic. HENT: Head: Normocephalic and atraumatic. Nose: Congestion present. Mouth/Throat: Mouth: Mucous membranes are dry. Eyes: Extraocular Movements: Extraocular movements intact. Pupils: Pupils are equal, round, and reactive to light. Cardiovascular: Rate and Rhythm: Normal rate and regular rhythm. Pulmonary: Effort: Pulmonary effort is normal. No respiratory distress. Abdominal: Palpations: Abdomen is soft. Tenderness: There is no abdominal tenderness. Musculoskeletal: General: No deformity. Normal range of motion. Cervical back: Normal range of motion and neck supple. Skin: General: Skin is warm. Coloration: Skin is not jaundiced. Neurological: Mental Status: He is alert and oriented to person, place, and time. Cranial Nerves: No cranial nerve deficit. Comments: Tremulous. Psychiatric: Attention and Perception: He does not perceive auditory or visual hallucinations. Thought Content: Thought content is not paranoid or delusional. Thought content does not include homicidal or suicidal ideation. Thought content does not include homicidal or suicidal plan. Judgment: Judgment is impulsive and inappropriate. Medications Home Meds Current Outpatient Medications Medication Instructions albuterol 108 (90 Base) MCG/ACT inhaler 2 puffs, Inhalation, Every 6 hours PRN calcipotriene (Dovonex) 0.005 % cream Topical, 2 times daily clobetasol (Temovate) 0.05 % cream Topical, 2 times daily gabapentin (NEURONTIN) 600 mg, Oral, 3 times daily melatonin 5 mg, Oral, Nightly Multiple Vitamins tablet 1 tablet, Oral, Daily naltrexone ER (VIVITROL) 380 mg, IntraMUSCular, Once nicotine polacrilex (NICOTINE MINI) 4 mg, Mouth/Throat, Every 2 hour PRN pantoprazole (PROTONIX) 40 mg, Oral, Daily Thiamine Mononitrate (VITAMIN B1) 100 mg, Oral, Daily Scheduled Inpatient Meds clobetasol, , Topical, BID folic acid, 1 mg, Oral, Daily melatonin, 10 mg, Oral, Nightly pantoprazole, 40 mg, Oral, Daily PHENobarbital, 97.2 mg, Oral, Q4H therapeutic multivitamin-minerals, 1 tablet, Oral, Daily thiamine, 100 mg, Oral, Daily PRN Inpatient Meds PRN medications: albuterol, dicyclomine, hydrOXYzine pamoate, ibuprofen, LORazepam OR LORazepam OR LORazepam OR LORazepam OR [DISCONTINUED] LORazepam OR [DISCONTINUED] LORazepam OR [DISCONTINUED] LORazepam OR [DISCONTINUED] LORazepam, nicotine polacrilex, ondansetron ODT OR ondansetron, polyethylene glycol (PEG) 3350, traZODone Continuous Inpatient Infusions Recent Imaging ECG 12 lead Result Date: 04/09/2024 Sinus rhythm Borderline prolonged QT interval No significant changes from prior EKG Electronically Signed On 04-09-2024 22:41:09 EST by Kolby Whiteside Labs CBC: Recent Labs 04/09/242038 WBC 4.4 HGB 16.2 PLT 214 MCV 95.3 RDW 13.0 BMP: Recent Labs 04/09/242038 NA 135* K 4.4 CL 99 CO2 25 BUN 5* CREATININE 0.65* CALCIUM 8.9 MG 2.0 Liver Profile: Recent Labs 04/09/242038 AST 136* ALT 189* BILITOT 0.5 ALKPHOS 94 PROT 7.1 LIPASE 44 Glucose: Recent Labs 04/09/242038 GLUCOSE 91 Lactic Acid: No lab exists for component: LACTA Cardiac Injury Profile: No results for input(s): CKTOTAL, CKMB, TROPONINI in the last 72 hours. Last 24 Hours: No results found for this or any previous visit (from the past 24 hours). ASSESSMENT & PLAN Severe Alcohol use disorder Tobacco use disorder Counseled patient on biopsychosocial consequences of substance use. Encouraged professional chemical dependency treatment. Discussed aftercare including AA/NA, 1:1 counseling, IOP and residential treatment Discussed MAT including Acamprosate, Disulfiram, Naltrexone and Vivitrol Follow up plan for addiction management discussed with patient: Remains disinterested in MAT or Aftercare. ADM to continue this discussion. Alcohol withdrawal - progressing as expected. Ishan dependence with withdrawal Last use of ETOH was on the way to [facility] ED. Phenobarbital taper to manage ETOH withdrawal symptoms. Reduced to 64.8mg PO Q6H today Reduce to 32.4mg PO Q8H tomorrow Possible discharge Saturday (04/12/24) - continue to evaluate. Ativan adjunct: Ativan 1mg Q1H PO / IV PRN for CIWA score 8 to 10. Ativan 2mg Q1H PO / IV PRN for CIWA score 11 or greater. Folate / Thiamine replacement CIWA scores per unit protocol. PRN medications for withdrawal symptom management: Ibuprofen 600mg PO Q6H PRN pain 1-10. Bentyl 20mg Po TID PRN abd cramps Melatonin 10mg PO at bedtime Trazodone 50mg Po at bedtime PRN sleep PPI 40mg PO Daily NRT Mild hyponatremia Na 135 K 4.4 Mg 2 Ca 8.0 Labs ordered for recheck. Elevated LFTs ALP (94) AST (136) ALT (189) 2/2 ETOH abuse Monitor until down trending. Disposition: Discharge anticipated in 2-3 days. This is pending: Resolution of withdrawal symptoms - Progressing as expected. Medical stabilization per IM and ADM Labs/tests/tasks to review: Lytes and LFTs. Tray Setter to coordinate care with: N/A. A total of 35 minutes were spent reviewing the patient's records, evaluating the patient, entering orders, coordinating care with the treatment team, and creating this note. documented in this encounter [facility] 04-12-2024 Note Pt educated about his plan of ca re [facility] 04-12-2024 Plan of care note Pt educated about his plan of care [facility] 04-11-2024 Plan of care note Problem: Pain - Adult Goal: Verbalizes/displays adequate comfort level or baseline comfort level Outcome: Progressing Problem: Safety - Adult Goal: Free from fall injury Outcome: Progressing Problem: Problem Interventions Goal: Assess Nutritional Intake Outcome: Progressing [facility] 04-11-2024 Plan of care note Problem: Pain - Adult Goal: Verbalizes/displays adequate comfort level or baseline comfort level Outcome: Progressing Flowsheets (Taken 04/11/2024 0456) Verbalizes/displays adequate comfort level or baseline comfort level: Encourage patient to monitor pain and request assistance Assess pain using appropriate pain scale Problem: Safety - Adult Goal: Free from fall injury Outcome: Progressing [facility] 04-10-2024 Nurse Note Pt refusing to let RN put side rail of ED stretcher up. Pt educated on seizure precautions and dangers with withdrawls. Pt still refusing. Will continue to monitor. [facility] 04-10-2024 Nurse Note Pt refusing to let RN put side rail of ED stretcher up. Pt educated on seizure precautions and dangers with withdrawls. Pt still refusing. Will continue to monitor. documented in this encounter [facility] 04-10-2024 Consult note Associated Order (s): IP CONSULT TO ADDICTION MEDICINE Images from the original note were not included. ADDICTION MEDICINE CONSULTATION H&P Patient: Maria De Jesus Hogan Admit Date: 04/09/2024 Primary Care Physician: Lynda Rasheed MD Reason for Consultation: AUD withdrawal and management. HISTORY OF PRESENT ILLNESS Chief Complaint Patient presents with Alcohol Problem Patient seeking detox from ETOH. 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 The Pt, Mr. Hogan, is a 58 y/o M with a PMHx of Severe AUD, TUD, BPH and Lombardo's esophagus who presented to [facility] on (04/09/24) requesting chemical detox. ADM consulted for medical management of chemical withdrawal. Overall Mr. Hogan is well known to the ADM service. He started drinking when he was in his late teens. Alcohol became a problem for him relatively quickly. He has been through several episodes of care including chemical detox and aftercare with his longest period of sobriety being about 1 year in length which ended after his mother passed way approximately 5 years ago now. He notes that he was able to stay sober for about 1 month after he was last admitted for chemical detox in Dec 2023. He credits his relapse to his step daughter who was sneaking alcohol into the home which he found. He notes he did not start to drink immediately after finding it but about 1 week after finding it. Step daughter is no longer living at home as a result of his relapse and the house has been wiped clean of all alcohol but I had to come get help. Pt reports that he has been drinking about a fifth of liquor and some beers daily since his relapse. He notes that this is worse than his last admission where he was drinking several tall boys per day (about 12 per day) which is worse than his prior episode of care in October 2023 where he was only drinking 6 to 8 tall boys per day. Pt has been blacking out several times per week with his current EOTH use. Has had overdoses in the past related to AUD. No history of withdrawal seizure or delirium tremens. He has had DUIs as a result of his drinking and driving. Patient expresses that he is not interested in aftercare noting that he has tried it all and it doesn't really work. Notes that he couldn't attend anyway due to lack of insurance and transportation. He continues to smoke 1-2 packs of tobacco daily. No other substance use. Currently reports headache, nausea, diffuse body ache, tremors, goose flesh, fatigue, insomnia and generally notes he doesn't feel well. Appetite is 'shit'. No SI/HI or AVH reported. UDS: Neg BAL: 334 OARRS reviewed today and is negative unless noted below: 02/21/2024 02/05/2024 Gabapentin 300 Mg Capsule 180.00 30 Di Lis 01/23/2024 01/23/2024 Gabapentin 300 Mg Capsule 180.00 30 An Man 12/03/2023 12/03/2023 Gabapentin 600 Mg Tablet 90.00 30 Di Lis 08/07/2023 08/01/2023 Gabapentin 600 Mg Tablet 90.00 30 Di Lis 07/31/2023 07/31/2023 Gabapentin 600 Mg Tablet 30.00 10 Tj Loc SUBSTANCE USE HISTORY Brief Substance Use Narrative - as above. Current Substance Use Alcohol: a fifth of liquor and several 24 ounce beers daily.. Amphetamines: Denies. Benzos: Denies. Cocaine: Denies. Hallucinogens: Denies. Marijuana: Denies. Nicotine: 1-2 PPD. Opioids: Denies. Treatment History Inpatient Rehab: None. Chem Dep IOP: previously attended IOP but Pt cannot recall where. Detoxifications: x1 [facility] (per Pt). 12 Step Meetings: Has attended several in the past but does not feel that these meetings have been helpful. Medication Assisted Treatment: Denies prior treatment. Consequences [] IVDA. [x] Blackouts related to substance use. [] History of withdrawal seizures. [] History of delirium tremens. [x] History of overdoses. [x] Legal consequences of substance use. Substance Use Disorder Criteria 2-3 = mild; 4-5 = moderate; 6 or >6 = severe substance use disorder [x] Taking substance in larger amounts and/or for longer than intended. [x] Wanting to cut down or quit but not being able to. [x] Spending a lot of time obtaining the substance. [x] Craving or a strong desire to use substance. [x] Repeatedly doesn't carry out major obligations due to substance use. [x] Using despite recurring social or interpersonal problems. [x] Reducing social, occupational, or recreational activities. [x] Recurrent use in physically hazardous situations. [x] Consistent use despite recurrent physical or psychological difficulties. [x] Tolerance (increased amounts to achieve intoxication or diminished effect). [x] Withdrawal syndrome or the substance is used to avoid withdrawal. REMAINING HISTORY Psychiatric History Current Psychiatrist: Denies Current Medications: Denies Diagnoses: Denies Previous Medication Trials: Denies Psychiatric Hospitalizations: Denies Previous Suicide Attempts: Denies Adverse Childhood Events: Denies Trauma History: Denies History of Head Injuries: Denies Past Medical History Past Medical History: Diagnosis Date Alcohol abuse Alcohol dependence with withdrawal (HCC) 08/31/2019 Alcohol intoxication without use disorder, uncomplicated (HCC) 10/01/2019 Alcohol use disorder 09/10/2022 Alcohol withdrawal syndrome with complication (HCC) 09/27/2021 Alcohol withdrawal syndrome without complication (HCC) Alcohol withdrawal with inpatient treatment without complication (HCC) 01/20/2024 Alcohol withdrawal, uncomplicated (HCC) 08/31/2019 Alcohol withdrawal, with unspecified complication (HCC) 10/02/2019 Alcohol withdrawal, with unspecified complication (HCC) 10/02/2019 Alcoholism (CMS/HCC) (HCC) Anxiety Arthritis Maria De Jesus Cerebral artery occlusion with cerebral infarction (HCC) Cerebrovascular disease Depression GERD (gastroesophageal reflux disease) Maria De Jesus Hypertension Insomnia Past Surgical History Past Surgical History: Procedure Laterality Date COLONOSCOPY 06/10/2020 EGD/Dr Madison/AMANDA CYST REMOVAL face EGD (HISTORICAL) 07/23/2022 Dr. Estrella-[facility] SMALL INTESTINE SURGERY UPPER GASTROINTESTINAL ENDOSCOPY 09/27/2021 normal WISDOM TOOTH EXTRACTION Family History Family History Problem Relation Name Age of Onset Depression Sister Maria De Jesus Hogan Other ([id number]) Sister Maria De Jesus Hogan agoraphobia Arthritis Sister Maria De Jesus Hogan Cancer Mother Maria De Jesus Hogan colon rectal cancer; dx after age 50 Other ([id number]) Mother Maria De Jesus Hogan alcoholism Alcohol abuse Mother Maria De Jesus Hogan Stroke Mother Maria De Jesus Hogan Other ([id number]) Father Maria De Jesus Hogan h/o rheumatic fever, cardiac arrest due to bee sting Hypertension Father Maria De Jesus Hogan [employer] Tobacco Use: High Risk (04/09/2024) Patient History Smoking Tobacco Use: Every Day Smokeless Tobacco Use: Never Passive Exposure: Not on file Alcohol Use: Not At Risk (04/09/2024) AUDIT-C Frequency of Alcohol Consumption: Never Average Number of Drinks: Patient does not drink Frequency of Binge Drinking: Never Recent Concern: Alcohol Use - Alcohol Misuse (01/28/2024) AUDIT-C Frequency of Alcohol Consumption: 4 or more times a week Average Number of Drinks: 7 to 9 Frequency of Binge Drinking: Daily or almost daily Financial Resource Strain: Low Risk (01/28/2024) Overall Financial Resource Strain (CARDIA) Difficulty of Paying Living Expenses: Not very hard Recent Concern: Financial Resource Strain - Medium Risk (01/20/2024) Overall Financial Resource Strain (CARDIA) Difficulty of Paying Living Expenses: Somewhat hard Food Insecurity: No Food Insecurity (01/28/2024) Hunger Vital Sign Worried About Running Out of Food in the Last Year: Never true Ran Out of Food in the Last Year: Never true Transportation Needs: No Transportation Needs (01/21/2024) PRAPARE - Transportation Lack of Transportation (Medical): No Lack of Transportation (Non-Medical): No Physical Activity: Inactive (01/20/2024) Exercise Vital Sign Days of Exercise per Week: 0 days Minutes of Exercise per Session: 0 min Stress: No Stress Concern Present (01/20/2024) [place] [employer] - Occupational Stress Questionnaire Feeling of Stress : Not at all Social Connections: Unknown (01/28/2024) Social Connection and Isolation Panel [NHANES] Frequency of Communication with Friends and Family: Twice a week Frequency of Social Gatherings with Friends and Family: Patient unable to answer Attends Synagogue Services: Never Active Member of Clubs or Organizations: No Attends Club or Organization Meetings: Never Marital Status: Recent Concern: Social Connections - Socially Isolated (01/20/2024) Social Connection and Isolation Panel [NHANES] Frequency of Communication with Friends and Family: Never Frequency of Social Gatherings with Friends and Family: Never Attends Synagogue Services: Never Active Member of Clubs or Organizations: No Attends Club or Organization Meetings: Never Marital Status: Intimate Partner Violence: Not At Risk (01/21/2024) Humiliation, Afraid, Rape, and Kick questionnaire Fear of Current or Ex-Partner: No Emotionally Abused: No Physically Abused: No Sexually Abused: No Depression: None or minimal depression (01/28/2024) PHQ-9 PHQ-9 Score: 1 Recent Concern: Depression - Moderately severe depression (01/20/2024) PHQ-9 PHQ-9 Score: 17 Housing Stability: High Risk (01/28/2024) Housing Stability Vital Sign Unable to Pay for Housing in the Last Year: No Number of Times Moved in the Last Year: 2 Homeless in the Last Year: No Utilities: Not At Risk (01/20/2024) [facility] Utilities Threatened with loss of utilities: No Health Literacy: Not on file REVIEW OF SYSTEMS A 14 system ROS was collected and is negative unless otherwise noted above. EXAM Vitals Vitals: 04/09/24 1840 04/09/24 2217 04/10/24 0738 BP: (!) 140/86 132/88 (!) 140/101 BP Location: Right arm Patient Position: Lying Pulse: 96 97 (!) 116 Resp: 19 18 Temp: 36.3 C (97.3 F) 37.1 C (98.7 F) TempSrc: Temporal Temporal SpO2: 96% 95% (!) 90% Physical Exam Constitutional: Appearance: He is ill-appearing and diaphoretic. HENT: Head: Normocephalic and atraumatic. Nose: Congestion present. Mouth/Throat: Mouth: Mucous membranes are dry. Eyes: Extraocular Movements: Extraocular movements intact. Conjunctiva/sclera: Right eye: Right conjunctiva is injected. Left eye: Left conjunctiva is injected. Cardiovascular: Rate and Rhythm: Normal rate and regular rhythm. Pulmonary: Effort: Pulmonary effort is normal. No respiratory distress. Abdominal: Palpations: Abdomen is soft. Tenderness: There is no abdominal tenderness. There is no guarding or rebound. Musculoskeletal: General: No deformity. Normal range of motion. Cervical back: Normal range of motion and neck supple. Skin: General: Skin is warm. Coloration: Skin is not jaundiced. Neurological: Mental Status: He is alert and oriented to person, place, and time. Cranial Nerves: No cranial nerve deficit. Comments: tremulous Psychiatric: Attention and Perception: He does not perceive auditory or visual hallucinations. Mood and Affect: Mood is anxious. Thought Content: Thought content is not paranoid or delusional. Thought content does not include homicidal or suicidal ideation. Thought content does not include homicidal or suicidal plan. IMAGING ECG 12 lead Result Date: 04/09/[address] elevation, anterior leads Borderline prolonged QT interval LABS Recent Results (from the past 48 hours) ECG 12 lead Collection Time: 04/09/24 8:34 PM Result Value Ref Range Heart Rate 87 bpm QRSD Interval 96 ms QT Interval 409 ms QTC Interval 493 ms P [place] 65 degrees QRS [place] 59 degrees T Wave [place] 44 degrees [place] Interval 162 ms CBC auto differential Collection Time: 04/09/24 8:39 PM Result Value Ref Range Auto WBC 4.4 3.6 - 10.7 10*3/uL RBC 4.89 4.40 - 5.90 10*6/uL Hemoglobin 16.2 13.0 - 18.0 g/dL Hematocrit 46.6 40.0 - 52.0 % MCV 95.3 77.0 - 99.0 fL MCH 33.1 26.0 - 34.0 pg MCHC 34.8 30.5 - 36.0 % RDW 13.0 11.5 - 15.0 % Platelets 214 140 - 440 10*3/uL MPV 8.8 (L) 9.0 - 12.7 fL nRBC 0.0 0.0 - 2.0 /100 WBCs Neutrophils Relative 43.8 38.0 - 82.0 % Lymphocytes Relative 38.4 15.0 - 45.0 % Monocytes Relative 13.9 (H) 5.0 - 13.0 % Eosinophils Relative 2.3 0.0 - 6.0 % Basophils Relative 1.4 0.0 - 2.0 % Immature Grans % 0.2 0.0 - 2.0 % Neutrophils Absolute 1.9 1.8 - 7.5 10*3/uL Lymphocytes Absolute 1.7 1.0 - 4.3 10*3/uL Monocytes Absolute 0.6 0.0 - 0.9 10*3/uL Eosinophils Absolute 0.1 0.0 - 0.5 10*3/uL Basophils Absolute 0.1 0.0 - 0.2 10*3/uL Immature Grans Absolute 0.0 <0.1 10*3/uL Magnesium Collection Time: 04/09/24 8:39 PM Result Value Ref Range MAGNESIUM 2.0 1.6 - 2.6 mg/dL Lipase Collection Time: 04/09/24 8:39 PM Result Value Ref Range LIPASE 44 <55 U/L Ethanol Collection Time: 04/09/24 8:39 PM Result Value Ref Range ETHANOL IN SER/PLAS 334 (HH) <10 mg/dL Comprehensive metabolic panel Collection Time: 04/09/24 8:39 PM Result Value Ref Range SODIUM 135 (L) 136 - 145 mmol/L POTASSIUM 4.4 3.5 - 5.1 mmol/L CHLORIDE 99 98 - 107 mmol/L CARBON DIOXIDE 25 22 - 29 mmol/L ANION GAP 11 3 - 13 mmol/L UREA NITROGEN 5 (L) 9 - 23 mg/dL CREATININE 0.65 (L) 0.72 - 1.25 mg/dL GLUCOSE 91 74 - 100 mg/dL CALCIUM 8.9 8.4 - 10.2 mg/dL AST (SGOT) 136 (H) <34 U/L ALT 189 (H) <40 U/L ALKALINE PHOSPHATASE 94 40 - 150 U/L ALBUMIN 3.9 3.5 - 5.0 g/dL BILIRUBIN, TOTAL 0.5 <1.2 mg/dL TOTAL PROTEIN 7.1 6.4 - 8.3 g/dL eGFR >90.0 >60.0 mL/min/1.73m*2 Unconfirmed Drug Screen Collection Time: 04/09/24 8:40 PM Result Value Ref Range AMPHETAMINES Negative Negative BARBITURATES Negative Negative BENZODIAZEPINES Negative Negative COCAINE Negative Negative METHADONE Negative Negative OPIATES Negative Negative OXYCODONE/OXYMORPHONE Negative Negative PCP Negative Negative Complete Urinalysis Collection Time: 04/09/24 8:40 PM Result Value Ref Range Color, Urine Light Yellow Lt. Yellow Clarity, Urine Clear Clear pH, Urine 5.5 5.0 - 8.0 pH Leukocytes, Urine Negative Negative Estefani/uL Nitrite, Urine Negative Negative Protein, Urine Negative Negative mg/dL Glucose, Urine Normal Normal (<70) mg/dL Bilirubin, Urine Negative Negative mg/dL Ketones, Urine Negative Negative mg/dL Urobilinogen, Urine Normal Normal (0-1) mg/dL Blood, Urine Negative Negative mg/dL SPECIFIC GRAVITY OF URINE (NUMERIC) 1.010 1.005 - 1.030 SARS-CoV-2 Antigen Collection Time: 04/09/24 8:40 PM Specimen: Nasal; Swab Result Value Ref Range SARS-CoV-2 Antigen Negative Negative Drug screen panel, emergency Collection Time: 01/09/25 8:40 PM Result Value Ref Range AMPHETAMINE SCREEN Negative BARBITURATES SCREEN Negative BENZODIAZEPINE SCREEN Negative COCAINE METAB. SCREEN Negative METHADONE SCREEN Negative OPIATES SCREEN Negative OXYCODONE SCREEN Negative PHENCYCLIDINE SCREEN Negative FENTANYL SCREEN, UR QUAL Negative MEDICATIONS Home Meds Current Outpatient Medications Medication Instructions albuterol 108 (90 Base) MCG/ACT inhaler 2 puffs, Inhalation, Every 6 hours PRN calcipotriene (Dovonex) 0.005 % cream Topical, 2 times daily clobetasol (Temovate) 0.05 % cream Topical, 2 times daily gabapentin (NEURONTIN) 600 mg, Oral, 3 times daily melatonin 5 mg, Oral, Nightly Multiple Vitamins tablet 1 tablet, Oral, Daily naltrexone ER (VIVITROL) 380 mg, IntraMUSCular, Once nicotine polacrilex (NICOTINE MINI) 4 mg, Mouth/Throat, Every 2 hour PRN pantoprazole (PROTONIX) 40 mg, Oral, Daily Thiamine Mononitrate (VITAMIN B1) 100 mg, Oral, Daily Scheduled Inpatient Meds clobetasol, , Topical, BID folic acid, 1 mg, Oral, Daily folic acid, 1 mg, Oral, Daily gabapentin, 600 mg, Oral, TID melatonin, 5 mg, Oral, Nightly pantoprazole, 40 mg, Oral, Daily PHENobarbital, 62.5 mg, IntraVENous, BID therapeutic multivitamin-minerals, 1 tablet, Oral, Daily thiamine, 100 mg, Oral, Daily thiamine, 100 mg, Oral, Daily PRN Inpatient Meds PRN medications: albuterol, LORazepam OR LORazepam OR LORazepam OR LORazepam OR LORazepam OR LORazepam OR LORazepam OR LORazepam, nicotine polacrilex, ondansetron ODT OR ondansetron, polyethylene glycol (PEG) 3350 Continuous Inpatient Infusions ASSESSMENT & PLAN Severe Alcohol use disorder Tobacco use disorder Counseled patient on biopsychosocial consequences of substance use. Encouraged professional chemical dependency treatment. Discussed aftercare including AA/NA, 1:1 counseling, IOP and residential treatment Discussed MAT including Acamprosate, Disulfiram, Naltrexone and Vivitrol Follow up plan for addiction management discussed with patient: Has declined MAT at this time. Not interested in Aftercare at this time. Notes that his lack of interest in aftercare is 2/2 lack of insurance and lack of transportation. Alcohol withdrawal Ishan dependence with withdrawal Last use of ETOH was on the way to [facility] ED. Phenobarbital taper to manage ETOH withdrawal symptoms. Ativan adjunct: Ativan 1mg Q1H PO / IV PRN for CIWA score 8 to 10. Ativan 2mg Q1H PO / IV PRN for CIWA score 11 or greater. Folate / Thiamine replacement CIWA scores per unit protocol. PRN medications for withdrawal symptom management: Ibuprofen 600mg PO Q6H PRN pain 1-10. Bentyl 20mg Po TID PRN abd cramps Melatonin 10mg PO at bedtime Trazodone 50mg Po at bedtime PRN sleep PPI 40mg PO Daily NRT Mild hyponatremia (135) Na 135 K 4.4 Mg 2 Ca 8.0 Recheck tomorrow AM Elevated LFTs ALP (94) AST (136) ALT (189) 2/2 ETOH abuse Monitor until down trending. Disposition: Discharge anticipated in 3-5 days. This is pending: Resolution of withdrawal symptoms. Medical stabilization. Labs/tests/tasks to review: Lytes and LFTs. Tray Setter to coordinate care with: N/A. A total of 90 minutes were spent reviewing the patient's records, evaluating the patient, entering orders, coordinating care with the treatment team, and creating this note. 30 minutes reviewing prior records. [facility] 04-10-2024 Consult note Associated Order (s): IP CONSULT TO ADDICTION MEDICINE Images from the original note were not included. ADDICTION MEDICINE CONSULTATION H&P Patient: Maria De Jesus Hogan Admit Date: 04/09/2024 Primary Care Physician: Lynda Rasheed MD Reason for Consultation: AUD withdrawal and management. HISTORY OF PRESENT ILLNESS Chief Complaint Patient presents with Alcohol Problem Patient seeking detox from ETOH. 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 The Pt, Mr. Hogan, is a 58 y/o M with a PMHx of Severe AUD, TUD, BPH and Lombardo's esophagus who presented to [facility] on (04/09/24) requesting chemical detox. ADM consulted for medical management of chemical withdrawal. Overall Mr. Hogan is well known to the ADM service. He started drinking when he was in his late teens. Alcohol became a problem for him relatively quickly. He has been through several episodes of care including chemical detox and aftercare with his longest period of sobriety being about 1 year in length which ended after his mother passed way approximately 5 years ago now. He notes that he was able to stay sober for about 1 month after he was last admitted for chemical detox in Dec 2023. He credits his relapse to his step daughter who was sneaking alcohol into the home which he found. He notes he did not start to drink immediately after finding it but about 1 week after finding it. Step daughter is no longer living at home as a result of his relapse and the house has been wiped clean of all alcohol but I had to come get help. Pt reports that he has been drinking about a fifth of liquor and some beers daily since his relapse. He notes that this is worse than his last admission where he was drinking several tall boys per day (about 12 per day) which is worse than his prior episode of care in October 2023 where he was only drinking 6 to 8 tall boys per day. Pt has been blacking out several times per week with his current EOTH use. Has had overdoses in the past related to AUD. No history of withdrawal seizure or delirium tremens. He has had DUIs as a result of his drinking and driving. Patient expresses that he is not interested in aftercare noting that he has tried it all and it doesn't really work. Notes that he couldn't attend anyway due to lack of insurance and transportation. He continues to smoke 1-2 packs of tobacco daily. No other substance use. Currently reports headache, nausea, diffuse body ache, tremors, goose flesh, fatigue, insomnia and generally notes he doesn't feel well. Appetite is 'shit'. No SI/HI or AVH reported. UDS: Neg BAL: 334 OARRS reviewed today and is negative unless noted below: 02/21/2024 02/05/2024 Gabapentin 300 Mg Capsule 180.00 30 Di Lis 01/23/2024 01/23/2024 Gabapentin 300 Mg Capsule 180.00 30 An Man 12/03/2023 12/03/2023 Gabapentin 600 Mg Tablet 90.00 30 Di Lis 08/07/2023 08/01/2023 Gabapentin 600 Mg Tablet 90.00 30 Di Lis 07/31/2023 07/31/2023 Gabapentin 600 Mg Tablet 30.00 10 Tj Loc SUBSTANCE USE HISTORY Brief Substance Use Narrative - as above. Current Substance Use Alcohol: a fifth of liquor and several 24 ounce beers daily.. Amphetamines: Denies. Benzos: Denies. Cocaine: Denies. Hallucinogens: Denies. Marijuana: Denies. Nicotine: 1-2 PPD. Opioids: Denies. Treatment History Inpatient Rehab: None. Chem Dep IOP: previously attended IOP but Pt cannot recall where. Detoxifications: x1 [facility] (per Pt). 12 Step Meetings: Has attended several in the past but does not feel that these meetings have been helpful. Medication Assisted Treatment: Denies prior treatment. Consequences [] IVDA. [x] Blackouts related to substance use. [] History of withdrawal seizures. [] History of delirium tremens. [x] History of overdoses. [x] Legal consequences of substance use. Substance Use Disorder Criteria 2-3 = mild; 4-5 = moderate; 6 or >6 = severe substance use disorder [x] Taking substance in larger amounts and/or for longer than intended. [x] Wanting to cut down or quit but not being able to. [x] Spending a lot of time obtaining the substance. [x] Craving or a strong desire to use substance. [x] Repeatedly doesn't carry out major obligations due to substance use. [x] Using despite recurring social or interpersonal problems. [x] Reducing social, occupational, or recreational activities. [x] Recurrent use in physically hazardous situations. [x] Consistent use despite recurrent physical or psychological difficulties. [x] Tolerance (increased amounts to achieve intoxication or diminished effect). [x] Withdrawal syndrome or the substance is used to avoid withdrawal. REMAINING HISTORY Psychiatric History Current Psychiatrist: Denies Current Medications: Denies Diagnoses: Denies Previous Medication Trials: Denies Psychiatric Hospitalizations: Denies Previous Suicide Attempts: Denies Adverse Childhood Events: Denies Trauma History: Denies History of Head Injuries: Denies Past Medical History Past Medical History: Diagnosis Date Alcohol abuse Alcohol dependence with withdrawal (HCC) 08/31/2019 Alcohol intoxication without use disorder, uncomplicated (HCC) 10/01/2019 Alcohol use disorder 09/10/2022 Alcohol withdrawal syndrome with complication (HCC) 09/27/2021 Alcohol withdrawal syndrome without complication (HCC) Alcohol withdrawal with inpatient treatment without complication (HCC) 01/20/2024 Alcohol withdrawal, uncomplicated (HCC) 08/31/2019 Alcohol withdrawal, with unspecified complication (HCC) 10/02/2019 Alcohol withdrawal, with unspecified complication (HCC) 10/02/2019 Alcoholism (CMS/HCC) (HCC) Anxiety Arthritis Maria De Jesus Cerebral artery occlusion with cerebral infarction (HCC) Cerebrovascular disease Depression GERD (gastroesophageal reflux disease) Maria De Jesus Hypertension Insomnia Past Surgical History Past Surgical History: Procedure Laterality Date COLONOSCOPY 06/10/2020 EGD/Dr Madison/B CYST REMOVAL face EGD (HISTORICAL) 07/23/2022 Dr. Estrella-[facility] SMALL INTESTINE SURGERY UPPER GASTROINTESTINAL ENDOSCOPY 09/27/2021 normal WISDOM TOOTH EXTRACTION Family History Family History Problem Relation Name Age of Onset Depression Sister Maria De Jesus Hogan Other ([id number]) Sister Maria De Jesus Hogan agoraphobia Arthritis Sister Maria De Jesus Hogan Cancer Mother Maria De Jesus Hogan colon rectal cancer; dx after age 50 Other ([id number]) Mother Maria De Jesus Hogan alcoholism Alcohol abuse Mother Maria De Jesus Hogan Stroke Mother Maria De Jesus Hogan Other ([id number]) Father Maria De Jesus Hogan h/o rheumatic fever, cardiac arrest due to bee sting Hypertension Father Maria De Jesus Hogan [employer] Tobacco Use: High Risk (04/09/2024) Patient History Smoking Tobacco Use: Every Day Smokeless Tobacco Use: Never Passive Exposure: Not on file Alcohol Use: Not At Risk (04/09/2024) AUDIT-C Frequency of Alcohol Consumption: Never Average Number of Drinks: Patient does not drink Frequency of Binge Drinking: Never Recent Concern: Alcohol Use - Alcohol Misuse (01/28/2024) AUDIT-C Frequency of Alcohol Consumption: 4 or more times a week Average Number of Drinks: 7 to 9 Frequency of Binge Drinking: Daily or almost daily Financial Resource Strain: Low Risk (01/28/2024) Overall Financial Resource Strain (CARDIA) Difficulty of Paying Living Expenses: Not very hard Recent Concern: Financial Resource Strain - Medium Risk (01/20/2024) Overall Financial Resource Strain (CARDIA) Difficulty of Paying Living Expenses: Somewhat hard Food Insecurity: No Food Insecurity (01/28/2024) Hunger Vital Sign Worried About Running Out of Food in the Last Year: Never true Ran Out of Food in the Last Year: Never true Transportation Needs: No Transportation Needs (01/21/2024) PRAPARE - Transportation Lack of Transportation (Medical): No Lack of Transportation (Non-Medical): No Physical Activity: Inactive (01/20/2024) Exercise Vital Sign Days of Exercise per Week: 0 days Minutes of Exercise per Session: 0 min Stress: No Stress Concern Present (01/20/2024) [place] [employer] - Occupational Stress Questionnaire Feeling of Stress : Not at all Social Connections: Unknown (01/28/2024) Social Connection and Isolation Panel [NHANES] Frequency of Communication with Friends and Family: Twice a week Frequency of Social Gatherings with Friends and Family: Patient unable to answer Attends Synagogue Services: Never Active Member of Clubs or Organizations: No Attends Club or Organization Meetings: Never Marital Status: Recent Concern: Social Connections - Socially Isolated (01/20/2024) Social Connection and Isolation Panel [NHANES] Frequency of Communication with Friends and Family: Never Frequency of Social Gatherings with Friends and Family: Never Attends Synagogue Services: Never Active Member of Clubs or Organizations: No Attends Club or Organization Meetings: Never Marital Status: Intimate Partner Violence: Not At Risk (01/21/2024) Humiliation, Afraid, Rape, and Kick questionnaire Fear of Current or Ex-Partner: No Emotionally Abused: No Physically Abused: No Sexually Abused: No Depression: None or minimal depression (01/28/2024) PHQ-9 PHQ-9 Score: 1 Recent Concern: Depression - Moderately severe depression (01/20/2024) PHQ-9 PHQ-9 Score: 17 Housing Stability: High Risk (01/28/2024) Housing Stability Vital Sign Unable to Pay for Housing in the Last Year: No Number of Times Moved in the Last Year: 2 Homeless in the Last Year: No Utilities: Not At Risk (01/20/2024) [facility] Utilities Threatened with loss of utilities: No Health Literacy: Not on file REVIEW OF SYSTEMS A 14 system ROS was collected and is negative unless otherwise noted above. EXAM Vitals Vitals: 04/09/24 1840 04/09/24 2217 04/10/24 0738 BP: (!) 140/86 132/88 (!) 140/101 BP Location: Right arm Patient Position: Lying Pulse: 96 97 (!) 116 Resp: 19 18 Temp: 36.3 C (97.3 F) 37.1 C (98.7 F) TempSrc: Temporal Temporal SpO2: 96% 95% (!) 90% Physical Exam Constitutional: Appearance: He is ill-appearing and diaphoretic. HENT: Head: Normocephalic and atraumatic. Nose: Congestion present. Mouth/Throat: Mouth: Mucous membranes are dry. Eyes: Extraocular Movements: Extraocular movements intact. Conjunctiva/sclera: Right eye: Right conjunctiva is injected. Left eye: Left conjunctiva is injected. Cardiovascular: Rate and Rhythm: Normal rate and regular rhythm. Pulmonary: Effort: Pulmonary effort is normal. No respiratory distress. Abdominal: Palpations: Abdomen is soft. Tenderness: There is no abdominal tenderness. There is no guarding or rebound. Musculoskeletal: General: No deformity. Normal range of motion. Cervical back: Normal range of motion and neck supple. Skin: General: Skin is warm. Coloration: Skin is not jaundiced. Neurological: Mental Status: He is alert and oriented to person, place, and time. Cranial Nerves: No cranial nerve deficit. Comments: tremulous Psychiatric: Attention and Perception: He does not perceive auditory or visual hallucinations. Mood and Affect: Mood is anxious. Thought Content: Thought content is not paranoid or delusional. Thought content does not include homicidal or suicidal ideation. Thought content does not include homicidal or suicidal plan. IMAGING ECG 12 lead Result Date: 04/09/[address] elevation, anterior leads Borderline prolonged QT interval LABS Recent Results (from the past 48 hours) ECG 12 lead Collection Time: 04/09/24 8:34 PM Result Value Ref Range Heart Rate 87 bpm QRSD Interval 96 ms QT Interval 409 ms QTC Interval 493 ms P [place] 65 degrees QRS [place] 59 degrees T Wave [place] 44 degrees [place] Interval 162 ms CBC auto differential Collection Time: 04/09/24 8:39 PM Result Value Ref Range Auto WBC 4.4 3.6 - 10.7 10*3/uL RBC 4.89 4.40 - 5.90 10*6/uL Hemoglobin 16.2 13.0 - 18.0 g/dL Hematocrit 46.6 40.0 - 52.0 % MCV 95.3 77.0 - 99.0 fL MCH 33.1 26.0 - 34.0 pg MCHC 34.8 30.5 - 36.0 % RDW 13.0 11.5 - 15.0 % Platelets 214 140 - 440 10*3/uL MPV 8.8 (L) 9.0 - 12.7 fL nRBC 0.0 0.0 - 2.0 /100 WBCs Neutrophils Relative 43.8 38.0 - 82.0 % Lymphocytes Relative 38.4 15.0 - 45.0 % Monocytes Relative 13.9 (H) 5.0 - 13.0 % Eosinophils Relative 2.3 0.0 - 6.0 % Basophils Relative 1.4 0.0 - 2.0 % Immature Grans % 0.2 0.0 - 2.0 % Neutrophils Absolute 1.9 1.8 - 7.5 10*3/uL Lymphocytes Absolute 1.7 1.0 - 4.3 10*3/uL Monocytes Absolute 0.6 0.0 - 0.9 10*3/uL Eosinophils Absolute 0.1 0.0 - 0.5 10*3/uL Basophils Absolute 0.1 0.0 - 0.2 10*3/uL Immature Grans Absolute 0.0 <0.1 10*3/uL Magnesium Collection Time: 04/09/24 8:39 PM Result Value Ref Range MAGNESIUM 2.0 1.6 - 2.6 mg/dL Lipase Collection Time: 04/09/24 8:39 PM Result Value Ref Range LIPASE 44 <55 U/L Ethanol Collection Time: 04/09/24 8:39 PM Result Value Ref Range ETHANOL IN SER/PLAS 334 (HH) <10 mg/dL Comprehensive metabolic panel Collection Time: 04/09/24 8:39 PM Result Value Ref Range SODIUM 135 (L) 136 - 145 mmol/L POTASSIUM 4.4 3.5 - 5.1 mmol/L CHLORIDE 99 98 - 107 mmol/L CARBON DIOXIDE 25 22 - 29 mmol/L ANION GAP 11 3 - 13 mmol/L UREA NITROGEN 5 (L) 9 - 23 mg/dL CREATININE 0.65 (L) 0.72 - 1.25 mg/dL GLUCOSE 91 74 - 100 mg/dL CALCIUM 8.9 8.4 - 10.2 mg/dL AST (SGOT) 136 (H) <34 U/L ALT 189 (H) <40 U/L ALKALINE PHOSPHATASE 94 40 - 150 U/L ALBUMIN 3.9 3.5 - 5.0 g/dL BILIRUBIN, TOTAL 0.5 <1.2 mg/dL TOTAL PROTEIN 7.1 6.4 - 8.3 g/dL eGFR >90.0 >60.0 mL/min/1.73m*2 Unconfirmed Drug Screen Collection Time: 04/09/24 8:40 PM Result Value Ref Range AMPHETAMINES Negative Negative BARBITURATES Negative Negative BENZODIAZEPINES Negative Negative COCAINE Negative Negative METHADONE Negative Negative OPIATES Negative Negative OXYCODONE/OXYMORPHONE Negative Negative PCP Negative Negative Complete Urinalysis Collection Time: 04/09/24 8:40 PM Result Value Ref Range Color, Urine Light Yellow Lt. Yellow Clarity, Urine Clear Clear pH, Urine 5.5 5.0 - 8.0 pH Leukocytes, Urine Negative Negative Estefani/uL Nitrite, Urine Negative Negative Protein, Urine Negative Negative mg/dL Glucose, Urine Normal Normal (<70) mg/dL Bilirubin, Urine Negative Negative mg/dL Ketones, Urine Negative Negative mg/dL Urobilinogen, Urine Normal Normal (0-1) mg/dL Blood, Urine Negative Negative mg/dL SPECIFIC GRAVITY OF URINE (NUMERIC) 1.010 1.005 - 1.030 SARS-CoV-2 Antigen Collection Time: 04/09/24 8:40 PM Specimen: Nasal; Swab Result Value Ref Range SARS-CoV-2 Antigen Negative Negative Drug screen panel, emergency Collection Time: 04/09/24 8:40 PM Result Value Ref Range AMPHETAMINE SCREEN Negative BARBITURATES SCREEN Negative BENZODIAZEPINE SCREEN Negative COCAINE METAB. SCREEN Negative METHADONE SCREEN Negative OPIATES SCREEN Negative OXYCODONE SCREEN Negative PHENCYCLIDINE SCREEN Negative FENTANYL SCREEN, UR QUAL Negative MEDICATIONS Home Meds Current Outpatient Medications Medication Instructions albuterol 108 (90 Base) MCG/ACT inhaler 2 puffs, Inhalation, Every 6 hours PRN calcipotriene (Dovonex) 0.005 % cream Topical, 2 times daily clobetasol (Temovate) 0.05 % cream Topical, 2 times daily gabapentin (NEURONTIN) 600 mg, Oral, 3 times daily melatonin 5 mg, Oral, Nightly Multiple Vitamins tablet 1 tablet, Oral, Daily naltrexone ER (VIVITROL) 380 mg, IntraMUSCular, Once nicotine polacrilex (NICOTINE MINI) 4 mg, Mouth/Throat, Every 2 hour PRN pantoprazole (PROTONIX) 40 mg, Oral, Daily Thiamine Mononitrate (VITAMIN B1) 100 mg, Oral, Daily Scheduled Inpatient Meds clobetasol, , Topical, BID folic acid, 1 mg, Oral, Daily folic acid, 1 mg, Oral, Daily gabapentin, 600 mg, Oral, TID melatonin, 5 mg, Oral, Nightly pantoprazole, 40 mg, Oral, Daily PHENobarbital, 62.5 mg, IntraVENous, BID therapeutic multivitamin-minerals, 1 tablet, Oral, Daily thiamine, 100 mg, Oral, Daily thiamine, 100 mg, Oral, Daily PRN Inpatient Meds PRN medications: albuterol, LORazepam OR LORazepam OR LORazepam OR LORazepam OR LORazepam OR LORazepam OR LORazepam OR LORazepam, nicotine polacrilex, ondansetron ODT OR ondansetron, polyethylene glycol (PEG) 3350 Continuous Inpatient Infusions ASSESSMENT & PLAN Severe Alcohol use disorder Tobacco use disorder Counseled patient on biopsychosocial consequences of substance use. Encouraged professional chemical dependency treatment. Discussed aftercare including AA/NA, 1:1 counseling, IOP and residential treatment Discussed MAT including Acamprosate, Disulfiram, Naltrexone and Vivitrol Follow up plan for addiction management discussed with patient: Has declined MAT at this time. Not interested in Aftercare at this time. Notes that his lack of interest in aftercare is 2/2 lack of insurance and lack of transportation. Alcohol withdrawal Ishan dependence with withdrawal Last use of ETOH was on the way to [facility] ED. Phenobarbital taper to manage ETOH withdrawal symptoms. Ativan adjunct: Ativan 1mg Q1H PO / IV PRN for CIWA score 8 to 10. Ativan 2mg Q1H PO / IV PRN for CIWA score 11 or greater. Folate / Thiamine replacement CIWA scores per unit protocol. PRN medications for withdrawal symptom management: Ibuprofen 600mg PO Q6H PRN pain 1-10. Bentyl 20mg Po TID PRN abd cramps Melatonin 10mg PO at bedtime Trazodone 50mg Po at bedtime PRN sleep PPI 40mg PO Daily NRT Mild hyponatremia (135) Na 135 K 4.4 Mg 2 Ca 8.0 Recheck tomorrow AM Elevated LFTs ALP (94) AST (136) ALT (189) 2/2 ETOH abuse Monitor until down trending. Disposition: Discharge anticipated in 3-5 days. This is pending: Resolution of withdrawal symptoms. Medical stabilization. Labs/tests/tasks to review: Lytes and LFTs. Tray Setter to coordinate care with: N/A. A total of 90 minutes were spent reviewing the patient's records, evaluating the patient, entering orders, coordinating care with the treatment team, and creating this note. 30 minutes reviewing prior records. documented in this encounter [facility] 04-10-2024 Emergency department Note Pt sleeping [facility] 04-10-2024 Emergency department Note Pt sleeping Pt sleeping Pt sleeping Pt sleeping EMERGENCY DEPARTMENT ENCOUNTER Pt Name: Maria De Jesus Hogan Birthdate 1965 Date of evaluation: 04/09/2024 ED Provider: Kolby Whiteside DO CHIEF COMPLAINT Chief Complaint Patient presents with Alcohol Problem Patient seeking detox from ETOH. 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 HISTORY OF PRESENT ILLNESS (Location/Symptom, Timing/Onset, Context/Setting, Quality, Duration, Modifying Factors, Severity) Note limiting factors. I wore appropriate PPE for the entirety of this encounter. HPI Maria De Jesus Hogan is a 58 y.o. who presents to the emergency department with chief complaint of requesting alcohol detox. Patient states he drinks about 6-9 25 ounce tall boys daily and last drink was prior to arrival. Has been through alcohol withdrawal previously without history of withdrawal seizures. Endorses nicotine use. No drug use. Has had vomiting by states that for the past month he has had intermittent vomiting and they attribute this to his drinking. Nursing Notes were reviewed. Limitations to history: None Outside historians: None REVIEW OF SYSTEMS Review of Systems Pertinent positives and negatives as per HPI. PAST MEDICAL HISTORY Past Medical History: Diagnosis Date Alcohol abuse Alcohol dependence with withdrawal (HCC) 08/31/2019 Alcohol intoxication without use disorder, uncomplicated (HCC) 10/01/2019 Alcohol use disorder 09/10/2022 Alcohol withdrawal syndrome with complication (HCC) 09/27/2021 Alcohol withdrawal syndrome without complication (HCC) Alcohol withdrawal with inpatient treatment without complication (HCC) 01/20/2024 Alcohol withdrawal, uncomplicated (HCC) 08/31/2019 Alcohol withdrawal, with unspecified complication (HCC) 10/02/2019 Alcohol withdrawal, with unspecified complication (HCC) 10/02/2019 Alcoholism (CMS/HCC) (HCC) Anxiety Arthritis Maria De Jesus Cerebral artery occlusion with cerebral infarction (HCC) Cerebrovascular disease Depression GERD (gastroesophageal reflux disease) Maria De Jesus Hypertension Insomnia SURGICAL HISTORY Past Surgical History: Procedure Laterality Date COLONOSCOPY 06/10/2020 EGD/Dr Madison/B CYST REMOVAL face EGD (HISTORICAL) 07/23/2022 Dr. Estrella-[facility] SMALL INTESTINE SURGERY UPPER GASTROINTESTINAL ENDOSCOPY 09/27/2021 normal WISDOM TOOTH EXTRACTION CURRENT MEDICATIONS Previous Medications ALBUTEROL 108 (90 BASE) MCG/ACT INHALER Inhale 2 puffs every 6 hours as needed for wheezing or shortness of breath. CALCIPOTRIENE (DOVONEX) 0.005 % CREAM Apply topically 2 times daily. CLOBETASOL (TEMOVATE) 0.05 % CREAM Apply topically 2 times daily. GABAPENTIN (NEURONTIN) 300 MG CAPSULE Take 2 capsules (600 mg) by mouth 3 times daily. MELATONIN 5 MG TABLET Take 1 tablet (5 mg) by mouth Nightly. MULTIPLE VITAMINS TABLET Take 1 tablet by mouth daily. NALTREXONE ER (VIVITROL) INJECTION Inject 4 mL (380 mg) into the buttocks Once for 1 dose. NICOTINE POLACRILEX (NICOTINE MINI) 4 MG LOZENGE Dissolve 1 lozenge (4 mg) in the mouth every 2 hours as needed for smoking cessation. PANTOPRAZOLE (PROTONIX) 40 MG EC TABLET Take 1 tablet (40 mg) by mouth daily. THIAMINE MONONITRATE (VITAMIN B1) 100 MG TABLET Take 1 tablet (100 mg) by mouth daily. ALLERGIES Bee venom, Nickel, and Tramadol FAMILY HISTORY Family History Problem Relation Name Age of Onset Depression Sister Maria De Jesus Hogan Other ([id number]) Sister Maria De Jesus Hogan agoraphobia Arthritis Sister Maria De Jesus Hogan Cancer Mother Maria De Jesus Hogan colon rectal cancer; dx after age 50 Other ([id number]) Mother Maria De Jesus Hogan alcoholism Alcohol abuse Mother Maria De Jesus Hogan Stroke Mother Maria De eJsus Hogan Other ([id number]) Father Maria De Jesus Hogan h/o rheumatic fever, cardiac arrest due to bee sting Hypertension Father Maria De Jesus Hogan SOCIAL HISTORY Social History Socioeconomic History Marital status: Tobacco Use Smoking status: Every Day Current packs/day: 2.00 Average packs/day: 2.0 packs/day for 38.5 years (77.0 ttl pk-yrs) Types: Cigarettes Start date: 10/10/1985 Smokeless tobacco: Never Vaping Use Vaping status: Never Used Substance and Sexual Activity Alcohol use: Yes Comment: Detox home for a week 0 drinks 02/17/23, 6 tall boys/ daily 11/28/23 Drug use: No Sexual activity: Yes Partners: Female control/protection: Other Comment: live with Social Drivers of Health Financial Resource Strain: Low Risk (01/28/2024) Overall Financial Resource Strain (CARDIA) Difficulty of Paying Living Expenses: Not very hard Recent Concern: Financial Resource Strain - Medium Risk (01/20/2024) Overall Financial Resource Strain (CARDIA) Difficulty of Paying Living Expenses: Somewhat hard Food Insecurity: No Food Insecurity (01/28/2024) Hunger Vital Sign Worried About Running Out of Food in the Last Year: Never true Ran Out of Food in the Last Year: Never true Transportation Needs: No Transportation Needs (01/21/2024) PRAPARE - Transportation Lack of Transportation (Medical): No Lack of Transportation (Non-Medical): No Physical Activity: Inactive (01/20/2024) Exercise Vital Sign Days of Exercise per Week: 0 days Minutes of Exercise per Session: 0 min Stress: No Stress Concern Present (01/20/2024) [place] [employer] - Occupational Stress Questionnaire Feeling of Stress : Not at all Social Connections: Unknown (01/28/2024) Social Connection and Isolation Panel [NHANES] Frequency of Communication with Friends and Family: Twice a week Frequency of Social Gatherings with Friends and Family: Patient unable to answer Attends Synagogue Services: Never Active Member of Clubs or Organizations: No Attends Club or Organization Meetings: Never Marital Status: Recent Concern: Social Connections - Socially Isolated (01/20/2024) Social Connection and Isolation Panel [NHANES] Frequency of Communication with Friends and Family: Never Frequency of Social Gatherings with Friends and Family: Never Attends Synagogue Services: Never Active Member of Clubs or Organizations: No Attends Club or Organization Meetings: Never Marital Status: Intimate Partner Violence: Not At Risk (01/21/2024) Humiliation, Afraid, Rape, and Kick questionnaire Fear of Current or Ex-Partner: No Emotionally Abused: No Physically Abused: No Sexually Abused: No Housing Stability: High Risk (01/28/2024) Housing Stability Vital Sign Unable to Pay for Housing in the Last Year: No Number of Times Moved in the Last Year: 2 Homeless in the Last Year: No SCREENINGS PHYSICAL EXAM ED Triage Vitals [04/09/24 1840] Temp Heart Rate Resp BP 36.3 C (97.3 F) 96 19 (!) 140/86 SpO2 Temp Source Heart Rate Source Patient Position 96 % Temporal Monitor -- BP Location FiO2 (%) -- -- Physical Exam Vitals and nursing note reviewed. Constitutional: General: He is not in acute distress. Appearance: He is well-developed. He is not ill-appearing or toxic-appearing. HENT: Head: Normocephalic and atraumatic. Nose: Nose normal. Eyes: Extraocular Movements: Extraocular movements intact. Conjunctiva/sclera: Conjunctivae normal. Cardiovascular: Rate and Rhythm: Normal rate and regular rhythm. Pulses: Normal pulses. Heart sounds: Normal heart sounds. No murmur heard. Pulmonary: Effort: Pulmonary effort is normal. No respiratory distress. Breath sounds: Normal breath sounds. Abdominal: General: There is no distension. Palpations: Abdomen is soft. Tenderness: There is no abdominal tenderness. Musculoskeletal: General: No swelling. Normal range of motion. Cervical back: Normal range of motion and neck supple. Skin: General: Skin is warm and dry. Capillary Refill: Capillary refill takes less than 2 seconds. Neurological: General: No focal deficit present. Mental Status: He is alert. Mental status is at baseline. DIAGNOSTIC RESULTS Procedures/EKG: EKG was reviewed by myself. Physician [facility] RADIOLOGY (Per Emergency Physician): Interpretation per the Radiologist below, if available at the time of this note: No orders to display ED BEDSIDE ULTRASOUND: Performed by ED Physician - none LABS: Labs Reviewed CBC WITH AUTO DIFFERENTIAL - Abnormal Result Value Auto WBC 4.4 RBC 4.89 Hemoglobin 16.2 Hematocrit 46.6 MCV 95.3 MCH 33.1 MCHC 34.8 RDW 13.0 Platelets 214 MPV 8.8 (*) nRBC 0.0 Neutrophils Relative 43.8 Lymphocytes Relative 38.4 Monocytes Relative 13.9 (*) Eosinophils Relative 2.3 Basophils Relative 1.4 Immature Grans % 0.2 Neutrophils Absolute 1.9 Lymphocytes Absolute 1.7 Monocytes Absolute 0.6 Eosinophils Absolute 0.1 Basophils Absolute 0.1 Immature Grans Absolute 0.0 ETHANOL - Abnormal ETHANOL IN SER/PLAS 334 (*) Narrative: 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 NOTE: This result is for medical treatment only. Analysis performed using non-forensic procedures. COMPREHENSIVE METABOLIC PANEL - Abnormal SODIUM 135 (*) POTASSIUM 4.4 CHLORIDE 99 CARBON DIOXIDE 25 ANION GAP 11 UREA NITROGEN 5 (*) CREATININE 0.65 (*) GLUCOSE 91 CALCIUM 8.9 AST (SGOT) 136 (*) ALT 189 (*) ALKALINE PHOSPHATASE 94 ALBUMIN 3.9 BILIRUBIN, TOTAL 0.5 TOTAL PROTEIN 7.1 eGFR >90.0 SARS-COV-2 ANTIGEN - Normal SARS-CoV-2 Antigen Negative MAGNESIUM - Normal MAGNESIUM 2.0 Narrative: Higher values can be expected in females during menses. LIPASE - Normal LIPASE 44 COMPLETE URINALYSIS - Normal Color, Urine Light Yellow Clarity, Urine Clear pH, Urine 5.5 Leukocytes, Urine Negative Nitrite, Urine Negative Protein, Urine Negative Glucose, Urine Normal Bilirubin, Urine Negative Ketones, Urine Negative Urobilinogen, Urine Normal Blood, Urine Negative SPECIFIC GRAVITY OF URINE (NUMERIC) 1.010 COMPLETE URINALYSIS WITH REFLEX TO CULTURE Narrative: The following orders were created for panel order Urinalysis complete with reflex to Culture. Procedure Abnormality Status --------- ------ Complete Urinalysis[[id number]] Normal Final result Please view results for these tests on the individual orders. UNCONFIRMED DRUG SCREEN All other labs were within normal range or not returned as of this dictation. EMERGENCY DEPARTMENT COURSE and DIFFERENTIAL DIAGNOSIS/MDM: Vitals: Vitals: 04/09/24 1840 04/09/24 2217 BP: (!) 140/86 132/88 Pulse: 96 97 Resp: 19 Temp: 36.3 C (97.3 F) TempSrc: Temporal SpO2: 96% 95% Diagnoses as of 04/09/242254 Alcoholic intoxication without complication (CMS/HCC) ([facility]) The patient presented with chief complaint of alcohol detox. The differential diagnosis associated with this patient's presentation includes alcohol detox, drug intoxication, electrolyte abnormalities. Our workup consisted of ordering/reviewing: medical clearance. Patient is in agreement with this plan. Medications thiamine (Vitamin B1) tablet 100 mg (100 mg Oral Given 04/09/242044) folic acid (Folvite) tablet 1 mg (1 mg Oral Given 04/09/242044) ondansetron (Zofran) injection 4 mg (4 mg IntraVENous Given 04/09/242044) sodium chloride 0.9 % bolus 1,000 mL (1,000 mL IntraVENous New Bag 04/09/242045) PHENobarbital tablet 97.2 mg (97.2 mg Oral Given 04/09/242044) REVAL: 58-year-old male presenting to the ED requesting alcohol detox. Last drink prior to arrival. Vitals are stable. Patient given IV fluids, Zofran and started on phenobarbital. Will obtain labs for medical clearance. Patient will be admitted for detox. CRITICAL CARE TIME CONSULTS: None PROCEDURES: Unless otherwise noted below, none Procedures Patients symptoms are consistent with sepsis, severe sepsis, or septic shock (If yes use .sepsiscoremeasure): FINAL IMPRESSION 1. Alcoholic intoxication without complication (CMS/HCC) ([facility]) DISPOSITION Admit 04/09/2024 10:55:05 PM PATIENT REFERRED TO: No follow-up provider specified. DISCHARGE MEDICATIONS: New Prescriptions No medications on file (Comment: Please note this report has been produced using speech recognition software and may contain errors related to that system including errors in grammar, punctuation, and spelling, as well as words and phrases that may be inappropriate. If there are any questions or concerns please feel free to contact the dictating provider for clarification.) Kolby Whiteside DO (electronically signed) Emergency Medicine Provider Kolby Whiteside DO 04/09/24 4714 Emergency Department Encounter Location: [facility] ED Patient: Maria De Jesus Hogan : 1965 Date of evaluation: 04/09/2024 ED Provider: Steve Demarco MD Time received sign-out: 1100pm Maria De Jesus Hogan was checked out to me by Dr Whiteside. Please see his/her initial documentation for details of the patient's initial ED presentation, physical exam and completed studies. In brief, Maria De Jesus Hogan is a 58 y.o. adult that presented to the emergency department wanting alcohol detox. Was still pending his urine drug screen as well as discussion with detox provider I have reviewed and interpreted all of the currently available lab results and diagnostics from this visit: Results for orders placed or performed during the hospital encounter of 04/09/24 ECG 12 lead Collection Time: 04/09/24 8:34 PM Result Value Ref Range Heart Rate 87 bpm QRSD Interval 96 ms QT Interval 409 ms QTC Interval 493 ms P [place] 65 degrees QRS [place] 59 degrees T Wave [place] 44 degrees VA Interval 162 ms CBC auto differential Collection Time: 04/09/24 8:39 PM Result Value Ref Range Auto WBC 4.4 3.6 - 10.7 10*3/uL RBC 4.89 4.40 - 5.90 10*6/uL Hemoglobin 16.2 13.0 - 18.0 g/dL Hematocrit 46.6 40.0 - 52.0 % MCV 95.3 77.0 - 99.0 fL MCH 33.1 26.0 - 34.0 pg MCHC 34.8 30.5 - 36.0 % RDW 13.0 11.5 - 15.0 % Platelets 214 140 - 440 10*3/uL MPV 8.8 (L) 9.0 - 12.7 fL nRBC 0.0 0.0 - 2.0 /100 WBCs Neutrophils Relative 43.8 38.0 - 82.0 % Lymphocytes Relative 38.4 15.0 - 45.0 % Monocytes Relative 13.9 (H) 5.0 - 13.0 % Eosinophils Relative 2.3 0.0 - 6.0 % Basophils Relative 1.4 0.0 - 2.0 % Immature Grans % 0.2 0.0 - 2.0 % Neutrophils Absolute 1.9 1.8 - 7.5 10*3/uL Lymphocytes Absolute 1.7 1.0 - 4.3 10*3/uL Monocytes Absolute 0.6 0.0 - 0.9 10*3/uL Eosinophils Absolute 0.1 0.0 - 0.5 10*3/uL Basophils Absolute 0.1 0.0 - 0.2 10*3/uL Immature Grans Absolute 0.0 <0.1 10*3/uL Magnesium Collection Time: 04/09/24 8:39 PM Result Value Ref Range MAGNESIUM 2.0 1.6 - 2.6 mg/dL Lipase Collection Time: 04/09/24 8:39 PM Result Value Ref Range LIPASE 44 <55 U/L Ethanol Collection Time: 04/09/24 8:39 PM Result Value Ref Range ETHANOL IN SER/PLAS 334 (HH) <10 mg/dL Comprehensive metabolic panel Collection Time: 04/09/24 8:39 PM Result Value Ref Range SODIUM 135 (L) 136 - 145 mmol/L POTASSIUM 4.4 3.5 - 5.1 mmol/L CHLORIDE 99 98 - 107 mmol/L CARBON DIOXIDE 25 22 - 29 mmol/L ANION GAP 11 3 - 13 mmol/L UREA NITROGEN 5 (L) 9 - 23 mg/dL CREATININE 0.65 (L) 0.72 - 1.25 mg/dL GLUCOSE 91 74 - 100 mg/dL CALCIUM 8.9 8.4 - 10.2 mg/dL AST (SGOT) 136 (H) <34 U/L ALT 189 (H) <40 U/L ALKALINE PHOSPHATASE 94 40 - 150 U/L ALBUMIN 3.9 3.5 - 5.0 g/dL BILIRUBIN, TOTAL 0.5 <1.2 mg/dL TOTAL PROTEIN 7.1 6.4 - 8.3 g/dL eGFR >90.0 >60.0 mL/min/1.73m*2 SARS-CoV-2 Antigen Collection Time: 04/09/24 8:40 PM Specimen: Nasal; Swab Result Value Ref Range SARS-CoV-2 Antigen Negative Negative Complete Urinalysis Collection Time: 04/09/24 8:40 PM Result Value Ref Range Color, Urine Light Yellow Lt. Yellow Clarity, Urine Clear Clear pH, Urine 5.5 5.0 - 8.0 pH Leukocytes, Urine Negative Negative Estefani/uL Nitrite, Urine Negative Negative Protein, Urine Negative Negative mg/dL Glucose, Urine Normal Normal (<70) mg/dL Bilirubin, Urine Negative Negative mg/dL Ketones, Urine Negative Negative mg/dL Urobilinogen, Urine Normal Normal (0-1) mg/dL Blood, Urine Negative Negative mg/dL SPECIFIC GRAVITY OF URINE (NUMERIC) 1.010 1.005 - 1.030 Drug screen panel, emergency Collection Time: 04/09/24 8:40 PM Result Value Ref Range AMPHETAMINE SCREEN Negative BARBITURATES SCREEN Negative BENZODIAZEPINE SCREEN Negative COCAINE METAB. SCREEN Negative METHADONE SCREEN Negative OPIATES SCREEN Negative OXYCODONE SCREEN Negative PHENCYCLIDINE SCREEN Negative FENTANYL SCREEN, UR QUAL Negative No orders to display Final ED Course and MDM: Maria De Jesus Hogan is a 58 y.o. whose care was signed out to me by the outgoing provider. In brief, patient presenting with alcohol withdrawal symptoms his alcohol level is significantly elevated and appears slightly intoxicated he has never had withdrawal seizures although does endorse severe withdrawal symptoms and has been through detox in the past. He does not have insurance at this time and cannot be admitted to our detox service so we will be admitting to hospitalist for alcohol withdrawal management Medications thiamine (Vitamin B1) tablet 100 mg (100 mg Oral Given 04/09/242044) folic acid (Folvite) tablet 1 mg (1 mg Oral Given 04/09/242044) ondansetron (Zofran) injection 4 mg (4 mg IntraVENous Given 04/09/242044) sodium chloride 0.9 % bolus 1,000 mL (0 mL IntraVENous Stopped 04/09/242145) PHENobarbital tablet 97.2 mg (97.2 mg Oral Given 04/09/242044) I Steve Demarco MD am the primary care coordinator of record. Final Impression 1. Alcoholic intoxication without complication (CMS/HCC) (HCC) DISPOSITION Admit 04/10/2024 12:06:32 AM (Please note that portions of this note may have been completed with a voice recognition program. Efforts were made to edit the dictations but occasionally words are mis-transcribed.) Steve Demarco MD [employer] Steve Demarco MD 04/10/24 0007 Patient seeking detox from ETOH. 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 documented in this encounter [facility] 04-10-2024 Emergency department Note Pt sleeping [facility] 04-10-2024 Emergency department Note Pt sleeping [facility] 04-10-2024 Emergency department Note Pt sleeping [facility] 04-10-2024 History and physical note Attending History and Physical Admit Date: 04/09/2024 PCP: Lynda Rasheed MD CHIEF COMPLAINT: Alcohol detox Reason for Admission: Alcohol Detox. History Obtained From: patient HISTORY OF PRESENT ILLNESS: Maria De Jesus is a 58 y.o. male with past medical history significant for alcohol abuse, dependency, anxiety disorder, cerebrovascular disease, depression, GERD, hypertension who presented to the emergency room requesting alcohol detox. Patient states that he drinks about 6 to 925 ounce tall boys daily and last drink was right before his arrival to the emergency room. Patient has undergone alcohol withdrawal in the past however he keeps falling back to alcohol use. Patient also smokes. Patient states that now he has started to have intermittent vomiting which he thinks is related to alcohol consumption. Denies any abdominal pain. Past Medical History: Past Medical History: Diagnosis Date Alcohol abuse Alcohol dependence with withdrawal (HCC) 08/31/2019 Alcohol intoxication without use disorder, uncomplicated (HCC) 10/01/2019 Alcohol use disorder 09/10/2022 Alcohol withdrawal syndrome with complication (HCC) 09/27/2021 Alcohol withdrawal syndrome without complication (HCC) Alcohol withdrawal with inpatient treatment without complication (HCC) 01/20/2024 Alcohol withdrawal, uncomplicated (HCC) 08/31/2019 Alcohol withdrawal, with unspecified complication (HCC) 10/02/2019 Alcohol withdrawal, with unspecified complication (HCC) 10/02/2019 Alcoholism (CMS/HCC) (HCC) Anxiety Arthritis Maria De Jesus Cerebral artery occlusion with cerebral infarction (HCC) Cerebrovascular disease Depression GERD (gastroesophageal reflux disease) Maria De Jesus Hypertension Insomnia Past Surgical History: Past Surgical History: Procedure Laterality Date COLONOSCOPY 06/10/2020 EGD/Dr Madison/B CYST REMOVAL face EGD (HISTORICAL) 07/23/2022 Dr. Estrella-[facility] SMALL INTESTINE SURGERY UPPER GASTROINTESTINAL ENDOSCOPY 09/27/2021 normal WISDOM TOOTH EXTRACTION Social History: Social History Socioeconomic History Marital status: Spouse name: Not on file Number of children: Not on file Years of education: Not on file Highest education level: Not on file Occupational History Not on file Tobacco Use Smoking status: Every Day Current packs/day: 2.00 Average packs/day: 2.0 packs/day for 38.5 years (77.0 ttl pk-yrs) Types: Cigarettes Start date: 10/10/1985 Smokeless tobacco: Never Vaping Use Vaping status: Never Used Substance and Sexual Activity Alcohol use: Yes Comment: Detox home for a week 0 drinks 02/17/23, 6 tall boys/ daily 11/28/23 Drug use: No Sexual activity: Yes Partners: Female control/protection: Other Comment: live with Other Topics Concern Not on file Social History Narrative Not on file Social Drivers of Health Financial Resource Strain: Low Risk (01/28/2024) Overall Financial Resource Strain (CARDIA) Difficulty of Paying Living Expenses: Not very hard Recent Concern: Financial Resource Strain - Medium Risk (01/20/2024) Overall Financial Resource Strain (CARDIA) Difficulty of Paying Living Expenses: Somewhat hard Food Insecurity: No Food Insecurity (01/28/2024) Hunger Vital Sign Worried About Running Out of Food in the Last Year: Never true Ran Out of Food in the Last Year: Never true Transportation Needs: No Transportation Needs (01/21/2024) PRAPARE - Transportation Lack of Transportation (Medical): No Lack of Transportation (Non-Medical): No Physical Activity: Inactive (01/20/2024) Exercise Vital Sign Days of Exercise per Week: 0 days Minutes of Exercise per Session: 0 min Stress: No Stress Concern Present (01/20/2024) [place] [employer] - Occupational Stress Questionnaire Feeling of Stress : Not at all Social Connections: Unknown (01/28/2024) Social Connection and Isolation Panel [NHANES] Frequency of Communication with Friends and Family: Twice a week Frequency of Social Gatherings with Friends and Family: Patient unable to answer Attends Synagogue Services: Never Active Member of Clubs or Organizations: No Attends Club or Organization Meetings: Never Marital Status: Recent Concern: Social Connections - Socially Isolated (01/20/2024) Social Connection and Isolation Panel [NHANES] Frequency of Communication with Friends and Family: Never Frequency of Social Gatherings with Friends and Family: Never Attends Synagogue Services: Never Active Member of Clubs or Organizations: No Attends Club or Organization Meetings: Never Marital Status: Intimate Partner Violence: Not At Risk (01/21/2024) Humiliation, Afraid, Rape, and Kick questionnaire Fear of Current or Ex-Partner: No Emotionally Abused: No Physically Abused: No Sexually Abused: No Housing Stability: High Risk (01/28/2024) Housing Stability Vital Sign Unable to Pay for Housing in the Last Year: No Number of Times Moved in the Last Year: 2 Homeless in the Last Year: No Family History: Family History Problem Relation Name Age of Onset Depression Sister Maria De Jesus Hogan Other ([id number]) Sister Maria De Jesus Hogan agoraphobia Arthritis Sister Maria De Jesus Hogan Cancer Mother Maria De Jesus Hogan colon rectal cancer; dx after age 50 Other ([id number]) Mother Maria De Jesus [place] alcoholism Alcohol abuse Mother Maria De Jesus Samira Stroke Mother Maria De Jesus Samira Other ([id number]) Father Maria De Jesus [place] h/o rheumatic fever, cardiac arrest due to bee sting Hypertension Father Maria De Jesus Hogan Medications Prior to Admission: No current facility-administered medications on file prior to encounter. Current Outpatient Medications on File Prior to Encounter Medication Sig Dispense Refill albuterol 108 (90 Base) MCG/ACT inhaler Inhale 2 puffs every 6 hours as needed for wheezing or shortness of breath. 3 each 1 calcipotriene (Dovonex) 0.005 % cream Apply topically 2 times daily. 60 g 3 clobetasol (Temovate) 0.05 % cream Apply topically 2 times daily. 60 g 3 gabapentin (Neurontin) 300 MG capsule Take 2 capsules (600 mg) by mouth 3 times daily. 180 capsule 3 melatonin 5 MG tablet Take 1 tablet (5 mg) by mouth Nightly. 90 tablet 1 Multiple Vitamins tablet Take 1 tablet by mouth daily. 90 tablet 1 naltrexone ER (Vivitrol) injection Inject 4 mL (380 mg) into the buttocks Once for 1 dose. 4 mL 0 nicotine polacrilex (Nicotine Mini) 4 MG lozenge Dissolve 1 lozenge (4 mg) in the mouth every 2 hours as needed for smoking cessation. 100 lozenge 3 pantoprazole (ProtoNix) 40 MG EC tablet Take 1 tablet (40 mg) by mouth daily. 90 tablet 1 Thiamine Mononitrate (Vitamin B1) 100 MG tablet Take 1 tablet (100 mg) by mouth daily. 90 tablet 1 Allergies: Allergies Allergen Reactions Bee Venom Swelling Nickel Rash Tramadol Nausea And Vomiting Other reaction(s): AOF REVIEW OF SYSTEMS: Constitutional: Negative for fever, chills, activity change and unexpected weight change. HEENT: Negative for congestion, postnasal drip and sneezing. Eyes: Negative for itching and visual disturbance. Respiratory: Negative for apnea, cough, choking, chest tightness, shortness of breath, wheezing and stridor. Cardiovascular: Negative for chest pain. Gastrointestinal: Negative for nausea, vomiting, abdominal pain, diarrhea and blood in stool. Genitourinary: Negative for dysuria, frequency and flank pain. Musculoskeletal: Negative for myalgias and joint swelling. Skin: Negative for rash. Neurological: Negative for dizziness, tremors, seizures, syncope, facial asymmetry, speech difficulty, weakness, numbness and headaches. Hematological: Negative for adenopathy. Psychiatric/Behavioral: Negative for suicidal ideas, behavioral problems, self-injury and dysphoric mood. Vitals: BP 132/88 Pulse 97 Temp 36.3 C (97.3 F) (Temporal) Resp 19 SpO2 95% BMI Classification: Pulse Ox: SpO2 Av.5 % Min: 95 % Max: 96 % Supplemental O2: PHYSICAL EXAM: Constitutional: General: Patient is not in acute distress. Appearance: Normal appearance. HENT: Head: Normocephalic and atraumatic. Right Ear: External ear normal. Left Ear: External ear normal. Mouth/Throat: Mouth: Mucous membranes are moist. Pharynx: Oropharynx is clear. Eyes: Extraocular Movements: Extraocular movements intact. Conjunctiva/sclera: Conjunctivae normal. Pupils: Pupils are equal, round, and reactive to light. Cardiovascular: Comments: Regular rate and rhythm, normal S1-S2, no murmurs noted. Radial pulses 2+ and symmetric. Pulmonary: Effort: Pulmonary effort is normal. No respiratory distress. Breath sounds: Normal breath sounds. No stridor. No wheezing or rhonchi. Abdominal: Comments: The abdomen is soft, nondistended and nontender. There is no rebound tenderness or guarding. Bowel sounds are normal. Skin: General: Skin is warm and dry. Capillary Refill: Capillary refill takes less than 2 seconds. Coloration: Skin is not jaundiced or pale. Findings: No bruising or erythema. Neurological: General: No focal deficit present. Mental Status: Patient is alert and oriented to person, place, and time. Mental status is at baseline. Cranial Nerves: No cranial nerve deficit. Sensory: No sensory deficit. Motor: No weakness. Coordination: Coordination normal. Psychiatric: Mood and Affect: Mood normal. Musculoskeletal: NO edema DATA: CBC: Recent Labs 04/09/242038 WBC 4.4 RBC 4.89 HGB 16.2 HCT 46.6 MCV 95.3 RDW 13.0 PLT 214 BMP: Recent Labs 04/09/242038 NA 135* K 4.4 CL 99 CO2 25 BUN 5* CREATININE 0.65* GLUCOSE 91 CALCIUM 8.9 ANIONGAP 11 LIVER PROFILE: Recent Labs 04/09/242038 AST 136* ALT 189* BILITOT 0.5 ALKPHOS 94 PROT 7.1 PT/INR: No results for input(s): PROTIME, INR in the last 72 hours. CARDIAC ENZYMES: No results for input(s): TROPONINI in the last 72 hours. Procalcitonin: No results found for: PROCAL Urine Culture: No results found for this or any previous visit. COVID-19 PCR: No results for input(s): COVID19 in the last 72 hours. I reviewed: [x] laboratory results [x] radiographic results At the time of today's encounter. Pt was advised of the results. Data: (CAT1) Reviewed 3 or more labs/studies ordered by another provider not previously counted (each=1, panels count as 1). (LOW: 2x CAT1 or independent historian MOD: 3x CAT1 or 1x CAT3 EXTENSIVE: 3x CAT1 and 1x CAT3) Assessment Discussed management with the ED provider and agree with hospitalization. Acute, acute on chronic, unstable/uncontrolled chronic problems/diagnoses: Alcoholism Stable chronic problems affecting care, new non-acute diagnoses: Hypertension GERD Depression Cerebrovascular disease Anxiety disorder Plan As a result of the above findings & factors, the following mgmt was pursued: -Plan to admit the patient to the regular medical floor Will consult addiction medicine Start CIWA protocol Will start the patient on thiamine and folic acid As needed lorazepam for anxiety agitation related to withdrawal Phenobarbital 62.5 mg twice daily Resume rest of medications from home - delirium precautions: increase activity and limit nighttime disturbances - DVT prophylaxis: enoxaparin and encourage ambulation Complexity: Acute illness with systemic symptoms (MOD). Risk: Admission to hospital-level care was considered or occurred (HIGH). Advance Directive: Prior Anticipated Discharge - Date - 04/11/24 - Location - Home - Pending the following -alcohol withdrawal treatment Total time spent (which include face to face and non face to face encounters) : 55 minutes. Toxic drug monitoring/narrow therapeutic index drug monitoring : # Drug name : Lovenox # Route administered : Subcutaneous # Method of monitoring : CBC Extended Emergency Contact Information Primary Emergency Contact: Mobile Relation: Spouse [employer] Maria De Jesus Hogan : 1965 Primary Care Physician: Lynda Rasheed MD The patient and/or family/surrogate voluntarily agreed to participate in ACP services. Patient s cognitive capacity: AOx3 Code Status: [_x] [FULL CODE - Continue all advanced life support: CPR,intubation,invasive procedures] [_] [DNR-CCA - DO NOT do CPR, intubation] [_] [DNR-SAW FEEDER - Comfort care only] [_] DNR form [was/was not] signed Summary of discussion: The patient health care POA/ surrogate is the following: Patient. . [Condition that instigated the ACP on this DOS, relevant PMH, functional status, goals of care, and whom this was discussed with including names and relationship to the patient, and any relevant advance care documentation discussion] I answered all the patient/family questions that I could within the range and scope of the current medical situation. We discussed the medical conditions, risks, benefits, outcomes, and goals of care at this time for the patient's medical issues at hand in the face of the patient's chronic issues and current presentation. Total time spent: 5 minutes were spent discussing the patient's resuscitation status, advance care planning, and end of life care, with patient and/or family/surrogate. John Sahni MD Division of Hospitalist Medicine [facility] [employer] Work Phone: 04-10-2024 Note [employer] [facility] 04-10-2024 History and physical note Attending History and Physical Admit Date: 04/09/2024 PCP: Lynda Rasheed MD CHIEF COMPLAINT: Alcohol detox Reason for Admission: Alcohol Detox. History Obtained From: patient HISTORY OF PRESENT ILLNESS: Maria De Jesus is a 58 y.o. male with past medical history significant for alcohol abuse, dependency, anxiety disorder, cerebrovascular disease, depression, GERD, hypertension who presented to the emergency room requesting alcohol detox. Patient states that he drinks about 6 to 925 ounce tall boys daily and last drink was right before his arrival to the emergency room. Patient has undergone alcohol withdrawal in the past however he keeps falling back to alcohol use. Patient also smokes. Patient states that now he has started to have intermittent vomiting which he thinks is related to alcohol consumption. Denies any abdominal pain. Past Medical History: Past Medical History: Diagnosis Date Alcohol abuse Alcohol dependence with withdrawal (HCC) 08/31/2019 Alcohol intoxication without use disorder, uncomplicated (HCC) 10/01/2019 Alcohol use disorder 09/10/2022 Alcohol withdrawal syndrome with complication (HCC) 09/27/2021 Alcohol withdrawal syndrome without complication (HCC) Alcohol withdrawal with inpatient treatment without complication (HCC) 01/20/2024 Alcohol withdrawal, uncomplicated (HCC) 08/31/2019 Alcohol withdrawal, with unspecified complication (HCC) 10/02/2019 Alcohol withdrawal, with unspecified complication (HCC) 10/02/2019 Alcoholism (CMS/HCC) (HCC) Anxiety Arthritis Maria De Jesus Cerebral artery occlusion with cerebral infarction (HCC) Cerebrovascular disease Depression GERD (gastroesophageal reflux disease) Maria De Jesus Hypertension Insomnia Past Surgical History: Past Surgical History: Procedure Laterality Date COLONOSCOPY 06/10/2020 EGD/Dr Madison/[facility] CYST REMOVAL face EGD (HISTORICAL) 07/23/2022 Dr. Estrella-[facility] SMALL INTESTINE SURGERY UPPER GASTROINTESTINAL ENDOSCOPY 09/27/2021 normal WISDOM TOOTH EXTRACTION Social History: Social History Socioeconomic History Marital status: Spouse name: Not on file Number of children: Not on file Years of education: Not on file Highest education level: Not on file Occupational History Not on file Tobacco Use Smoking status: Every Day Current packs/day: 2.00 Average packs/day: 2.0 packs/day for 38.5 years (77.0 ttl pk-yrs) Types: Cigarettes Start date: 10/10/1985 Smokeless tobacco: Never Vaping Use Vaping status: Never Used Substance and Sexual Activity Alcohol use: Yes Comment: Detox home for a week 0 drinks 02/17/23, 6 tall boys/ daily 11/28/23 Drug use: No Sexual activity: Yes Partners: Female control/protection: Other Comment: live with Other Topics Concern Not on file Social History Narrative Not on file Social Drivers of Health Financial Resource Strain: Low Risk (01/28/2024) Overall Financial Resource Strain (CARDIA) Difficulty of Paying Living Expenses: Not very hard Recent Concern: Financial Resource Strain - Medium Risk (01/20/2024) Overall Financial Resource Strain (CARDIA) Difficulty of Paying Living Expenses: Somewhat hard Food Insecurity: No Food Insecurity (01/28/2024) Hunger Vital Sign Worried About Running Out of Food in the Last Year: Never true Ran Out of Food in the Last Year: Never true Transportation Needs: No Transportation Needs (01/21/2024) PRAPARE - Transportation Lack of Transportation (Medical): No Lack of Transportation (Non-Medical): No Physical Activity: Inactive (01/20/2024) Exercise Vital Sign Days of Exercise per Week: 0 days Minutes of Exercise per Session: 0 min Stress: No Stress Concern Present (01/20/2024) [place] [employer] - Occupational Stress Questionnaire Feeling of Stress : Not at all Social Connections: Unknown (01/28/2024) Social Connection and Isolation Panel [NHANES] Frequency of Communication with Friends and Family: Twice a week Frequency of Social Gatherings with Friends and Family: Patient unable to answer Attends Synagogue Services: Never Active Member of Clubs or Organizations: No Attends Club or Organization Meetings: Never Marital Status: Recent Concern: Social Connections - Socially Isolated (01/20/2024) Social Connection and Isolation Panel [NHANES] Frequency of Communication with Friends and Family: Never Frequency of Social Gatherings with Friends and Family: Never Attends Synagogue Services: Never Active Member of Clubs or Organizations: No Attends Club or Organization Meetings: Never Marital Status: Intimate Partner Violence: Not At Risk (01/21/2024) Humiliation, Afraid, Rape, and Kick questionnaire Fear of Current or Ex-Partner: No Emotionally Abused: No Physically Abused: No Sexually Abused: No Housing Stability: High Risk (01/28/2024) Housing Stability Vital Sign Unable to Pay for Housing in the Last Year: No Number of Times Moved in the Last Year: 2 Homeless in the Last Year: No Family History: Family History Problem Relation Name Age of Onset Depression Sister Maria De Jesus Hogan Other ([id number]) Sister Maria De Jesus Hogan agoraphobia Arthritis Sister Maria De Jesus Hogan Cancer Mother Maria De Jesus Hogan colon rectal cancer; dx after age 50 Other ([id number]) Mother Maria De Jesus Hogan alcoholism Alcohol abuse Mother Maria De Jesus Hogan Stroke Mother Maria De Jesus Hogan Other ([id number]) Father Maria De Jesus Hogan h/o rheumatic fever, cardiac arrest due to bee sting Hypertension Father Maria De Jesus Hogan Medications Prior to Admission: No current facility-administered medications on file prior to encounter. Current Outpatient Medications on File Prior to Encounter Medication Sig Dispense Refill albuterol 108 (90 Base) MCG/ACT inhaler Inhale 2 puffs every 6 hours as needed for wheezing or shortness of breath. 3 each 1 calcipotriene (Dovonex) 0.005 % cream Apply topically 2 times daily. 60 g 3 clobetasol (Temovate) 0.05 % cream Apply topically 2 times daily. 60 g 3 gabapentin (Neurontin) 300 MG capsule Take 2 capsules (600 mg) by mouth 3 times daily. 180 capsule 3 melatonin 5 MG tablet Take 1 tablet (5 mg) by mouth Nightly. 90 tablet 1 Multiple Vitamins tablet Take 1 tablet by mouth daily. 90 tablet 1 naltrexone ER (Vivitrol) injection Inject 4 mL (380 mg) into the buttocks Once for 1 dose. 4 mL 0 nicotine polacrilex (Nicotine Mini) 4 MG lozenge Dissolve 1 lozenge (4 mg) in the mouth every 2 hours as needed for smoking cessation. 100 lozenge 3 pantoprazole (ProtoNix) 40 MG EC tablet Take 1 tablet (40 mg) by mouth daily. 90 tablet 1 Thiamine Mononitrate (Vitamin B1) 100 MG tablet Take 1 tablet (100 mg) by mouth daily. 90 tablet 1 Allergies: Allergies Allergen Reactions Bee Venom Swelling Nickel Rash Tramadol Nausea And Vomiting Other reaction(s): AOF REVIEW OF SYSTEMS: Constitutional: Negative for fever, chills, activity change and unexpected weight change. HEENT: Negative for congestion, postnasal drip and sneezing. Eyes: Negative for itching and visual disturbance. Respiratory: Negative for apnea, cough, choking, chest tightness, shortness of breath, wheezing and stridor. Cardiovascular: Negative for chest pain. Gastrointestinal: Negative for nausea, vomiting, abdominal pain, diarrhea and blood in stool. Genitourinary: Negative for dysuria, frequency and flank pain. Musculoskeletal: Negative for myalgias and joint swelling. Skin: Negative for rash. Neurological: Negative for dizziness, tremors, seizures, syncope, facial asymmetry, speech difficulty, weakness, numbness and headaches. Hematological: Negative for adenopathy. Psychiatric/Behavioral: Negative for suicidal ideas, behavioral problems, self-injury and dysphoric mood. Vitals: BP 132/88 Pulse 97 Temp 36.3 C (97.3 F) (Temporal) Resp 19 SpO2 95% BMI Classification: Pulse Ox: SpO2 Av.5 % Min: 95 % Max: 96 % Supplemental O2: PHYSICAL EXAM: Constitutional: General: Patient is not in acute distress. Appearance: Normal appearance. HENT: Head: Normocephalic and atraumatic. Right Ear: External ear normal. Left Ear: External ear normal. Mouth/Throat: Mouth: Mucous membranes are moist. Pharynx: Oropharynx is clear. Eyes: Extraocular Movements: Extraocular movements intact. Conjunctiva/sclera: Conjunctivae normal. Pupils: Pupils are equal, round, and reactive to light. Cardiovascular: Comments: Regular rate and rhythm, normal S1-S2, no murmurs noted. Radial pulses 2+ and symmetric. Pulmonary: Effort: Pulmonary effort is normal. No respiratory distress. Breath sounds: Normal breath sounds. No stridor. No wheezing or rhonchi. Abdominal: Comments: The abdomen is soft, nondistended and nontender. There is no rebound tenderness or guarding. Bowel sounds are normal. Skin: General: Skin is warm and dry. Capillary Refill: Capillary refill takes less than 2 seconds. Coloration: Skin is not jaundiced or pale. Findings: No bruising or erythema. Neurological: General: No focal deficit present. Mental Status: Patient is alert and oriented to person, place, and time. Mental status is at baseline. Cranial Nerves: No cranial nerve deficit. Sensory: No sensory deficit. Motor: No weakness. Coordination: Coordination normal. Psychiatric: Mood and Affect: Mood normal. Musculoskeletal: NO edema DATA: CBC: Recent Labs 04/09/242038 WBC 4.4 RBC 4.89 HGB 16.2 HCT 46.6 MCV 95.3 RDW 13.0 PLT 214 BMP: Recent Labs 04/09/242038 NA 135* K 4.4 CL 99 CO2 25 BUN 5* CREATININE 0.65* GLUCOSE 91 CALCIUM 8.9 ANIONGAP 11 LIVER PROFILE: Recent Labs 04/09/242038 AST 136* ALT 189* BILITOT 0.5 ALKPHOS 94 PROT 7.1 PT/INR: No results for input(s): PROTIME, INR in the last 72 hours. CARDIAC ENZYMES: No results for input(s): TROPONINI in the last 72 hours. Procalcitonin: No results found for: PROCAL Urine Culture: No results found for this or any previous visit. COVID-19 PCR: No results for input(s): COVID19 in the last 72 hours. I reviewed: [x] laboratory results [x] radiographic results At the time of today's encounter. Pt was advised of the results. Data: (CAT1) Reviewed 3 or more labs/studies ordered by another provider not previously counted (each=1, panels count as 1). (LOW: 2x CAT1 or independent historian MOD: 3x CAT1 or 1x CAT3 EXTENSIVE: 3x CAT1 and 1x CAT3) Assessment Discussed management with the ED provider and agree with hospitalization. Acute, acute on chronic, unstable/uncontrolled chronic problems/diagnoses: Alcoholism Stable chronic problems affecting care, new non-acute diagnoses: Hypertension GERD Depression Cerebrovascular disease Anxiety disorder Plan As a result of the above findings & factors, the following mgmt was pursued: -Plan to admit the patient to the regular medical floor Will consult addiction medicine Start CIWA protocol Will start the patient on thiamine and folic acid As needed lorazepam for anxiety agitation related to withdrawal Phenobarbital 62.5 mg twice daily Resume rest of medications from home - delirium precautions: increase activity and limit nighttime disturbances - DVT prophylaxis: enoxaparin and encourage ambulation Complexity: Acute illness with systemic symptoms (MOD). Risk: Admission to hospital-level care was considered or occurred (HIGH). Advance Directive: Prior Anticipated Discharge - Date - 04/11/24 - Location - Home - Pending the following -alcohol withdrawal treatment Total time spent (which include face to face and non face to face encounters) : 55 minutes. Toxic drug monitoring/narrow therapeutic index drug monitoring : # Drug name : Lovenox # Route administered : Subcutaneous # Method of monitoring : CBC Extended Emergency Contact Information Primary Emergency Contact: Mobile Relation: Spouse [employer] Maria De Jesus Hogan : 1965 Primary Care Physician: Lynda Rasheed MD The patient and/or family/surrogate voluntarily agreed to participate in ACP services. Patient s cognitive capacity: AOx3 Code Status: [_x] [FULL CODE - Continue all advanced life support: CPR,intubation,invasive procedures] [_] [DNR-CCA - DO NOT do CPR, intubation] [_] [DNR-SAW FEEDER - Comfort care only] [_] DNR form [was/was not] signed Summary of discussion: The patient health care POA/ surrogate is the following: Patient. . [Condition that instigated the ACP on this DOS, relevant PMH, functional status, goals of care, and whom this was discussed with including names and relationship to the patient, and any relevant advance care documentation discussion] I answered all the patient/family questions that I could within the range and scope of the current medical situation. We discussed the medical conditions, risks, benefits, outcomes, and goals of care at this time for the patient's medical issues at hand in the face of the patient's chronic issues and current presentation. Total time spent: 5 minutes were spent discussing the patient's resuscitation status, advance care planning, and end of life care, with patient and/or family/surrogate. John Sahni MD Division of Hospitalist Medicine [facility] documented in this encounter [facility] 04-09-2024 Emergency department Triage note Patient seeking detox from ETOH. 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 [facility] 04-09-2024 Physician Emergency department Note EMERGENCY DEPARTMENT ENCOUNTER Pt Name: Maria De Jesus Hogan Birthdate 1965 Date of evaluation: 04/09/2024 ED Provider: Kolby Whiteside DO CHIEF COMPLAINT Chief Complaint Patient presents with Alcohol Problem Patient seeking detox from ETOH. 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 HISTORY OF PRESENT ILLNESS (Location/Symptom, Timing/Onset, Context/Setting, Quality, Duration, Modifying Factors, Severity) Note limiting factors. I wore appropriate PPE for the entirety of this encounter. HPI Maria De Jesus Hogan is a 58 y.o. who presents to the emergency department with chief complaint of requesting alcohol detox. Patient states he drinks about 6-9 25 ounce tall boys daily and last drink was prior to arrival. Has been through alcohol withdrawal previously without history of withdrawal seizures. Endorses nicotine use. No drug use. Has had vomiting by states that for the past month he has had intermittent vomiting and they attribute this to his drinking. Nursing Notes were reviewed. Limitations to history: None Outside historians: None REVIEW OF SYSTEMS Review of Systems Pertinent positives and negatives as per HPI. PAST MEDICAL HISTORY Past Medical History: Diagnosis Date Alcohol abuse Alcohol dependence with withdrawal (HCC) 08/31/2019 Alcohol intoxication without use disorder, uncomplicated (HCC) 10/01/2019 Alcohol use disorder 09/10/2022 Alcohol withdrawal syndrome with complication (HCC) 09/27/2021 Alcohol withdrawal syndrome without complication (HCC) Alcohol withdrawal with inpatient treatment without complication (HCC) 01/20/2024 Alcohol withdrawal, uncomplicated (HCC) 08/31/2019 Alcohol withdrawal, with unspecified complication (HCC) 10/02/2019 Alcohol withdrawal, with unspecified complication (HCC) 10/02/2019 Alcoholism (CMS/HCC) (HCC) Anxiety Arthritis Maria De Jesus Cerebral artery occlusion with cerebral infarction (HCC) Cerebrovascular disease Depression GERD (gastroesophageal reflux disease) Maria De Jesus Hypertension Insomnia SURGICAL HISTORY Past Surgical History: Procedure Laterality Date COLONOSCOPY 06/10/2020 EGD/Dr Madison/AMANDA CYST REMOVAL face EGD (HISTORICAL) 07/23/2022 Dr. Estrella-[facility] SMALL INTESTINE SURGERY UPPER GASTROINTESTINAL ENDOSCOPY 09/27/2021 normal WISDOM TOOTH EXTRACTION CURRENT MEDICATIONS Previous Medications ALBUTEROL 108 (90 BASE) MCG/ACT INHALER Inhale 2 puffs every 6 hours as needed for wheezing or shortness of breath. CALCIPOTRIENE (DOVONEX) 0.005 % CREAM Apply topically 2 times daily. CLOBETASOL (TEMOVATE) 0.05 % CREAM Apply topically 2 times daily. GABAPENTIN (NEURONTIN) 300 MG CAPSULE Take 2 capsules (600 mg) by mouth 3 times daily. MELATONIN 5 MG TABLET Take 1 tablet (5 mg) by mouth Nightly. MULTIPLE VITAMINS TABLET Take 1 tablet by mouth daily. NALTREXONE ER (VIVITROL) INJECTION Inject 4 mL (380 mg) into the buttocks Once for 1 dose. NICOTINE POLACRILEX (NICOTINE MINI) 4 MG LOZENGE Dissolve 1 lozenge (4 mg) in the mouth every 2 hours as needed for smoking cessation. PANTOPRAZOLE (PROTONIX) 40 MG EC TABLET Take 1 tablet (40 mg) by mouth daily. THIAMINE MONONITRATE (VITAMIN B1) 100 MG TABLET Take 1 tablet (100 mg) by mouth daily. ALLERGIES Bee venom, Nickel, and Tramadol FAMILY HISTORY Family History Problem Relation Name Age of Onset Depression Sister Maria De Jesus Hogan Other ([id number]) Sister Maria De Jesus Hogan agoraphobia Arthritis Sister Maria De Jesus Hogan Cancer Mother Maria De Jesus Hogan colon rectal cancer; dx after age 50 Other ([id number]) Mother Maria De Jesus Hogan alcoholism Alcohol abuse Mother Maria De Jesus Hogan Stroke Mother Maria De Jesus Hogan Other ([id number]) Father Maria De Jesus Hogan h/o rheumatic fever, cardiac arrest due to bee sting Hypertension Father Maria De Jesus Hogan SOCIAL HISTORY Social History Socioeconomic History Marital status: Tobacco Use Smoking status: Every Day Current packs/day: 2.00 Average packs/day: 2.0 packs/day for 38.5 years (77.0 ttl pk-yrs) Types: Cigarettes Start date: 10/10/1985 Smokeless tobacco: Never Vaping Use Vaping status: Never Used Substance and Sexual Activity Alcohol use: Yes Comment: Detox home for a week 0 drinks 02/17/23, 6 tall boys/ daily 11/28/23 Drug use: No Sexual activity: Yes Partners: Female control/protection: Other Comment: live with Social Drivers of Health Financial Resource Strain: Low Risk (01/28/2024) Overall Financial Resource Strain (CARDIA) Difficulty of Paying Living Expenses: Not very hard Recent Concern: Financial Resource Strain - Medium Risk (01/20/2024) Overall Financial Resource Strain (CARDIA) Difficulty of Paying Living Expenses: Somewhat hard Food Insecurity: No Food Insecurity (01/28/2024) Hunger Vital Sign Worried About Running Out of Food in the Last Year: Never true Ran Out of Food in the Last Year: Never true Transportation Needs: No Transportation Needs (01/21/2024) PRAPARE - Transportation Lack of Transportation (Medical): No Lack of Transportation (Non-Medical): No Physical Activity: Inactive (01/20/2024) Exercise Vital Sign Days of Exercise per Week: 0 days Minutes of Exercise per Session: 0 min Stress: No Stress Concern Present (01/20/2024) [place] [employer] - Occupational Stress Questionnaire Feeling of Stress : Not at all Social Connections: Unknown (01/28/2024) Social Connection and Isolation Panel [NHANES] Frequency of Communication with Friends and Family: Twice a week Frequency of Social Gatherings with Friends and Family: Patient unable to answer Attends Synagogue Services: Never Active Member of Clubs or Organizations: No Attends Club or Organization Meetings: Never Marital Status: Recent Concern: Social Connections - Socially Isolated (01/20/2024) Social Connection and Isolation Panel [NHANES] Frequency of Communication with Friends and Family: Never Frequency of Social Gatherings with Friends and Family: Never Attends Synagogue Services: Never Active Member of Clubs or Organizations: No Attends Club or Organization Meetings: Never Marital Status: Intimate Partner Violence: Not At Risk (01/21/2024) Humiliation, Afraid, Rape, and Kick questionnaire Fear of Current or Ex-Partner: No Emotionally Abused: No Physically Abused: No Sexually Abused: No Housing Stability: High Risk (01/28/2024) Housing Stability Vital Sign Unable to Pay for Housing in the Last Year: No Number of Times Moved in the Last Year: 2 Homeless in the Last Year: No SCREENINGS PHYSICAL EXAM ED Triage Vitals [04/09/24 1840] Temp Heart Rate Resp BP 36.3 C (97.3 F) 96 19 (!) 140/86 SpO2 Temp Source Heart Rate Source Patient Position 96 % Temporal Monitor -- BP Location FiO2 (%) -- -- Physical Exam Vitals and nursing note reviewed. Constitutional: General: He is not in acute distress. Appearance: He is well-developed. He is not ill-appearing or toxic-appearing. HENT: Head: Normocephalic and atraumatic. Nose: Nose normal. Eyes: Extraocular Movements: Extraocular movements intact. Conjunctiva/sclera: Conjunctivae normal. Cardiovascular: Rate and Rhythm: Normal rate and regular rhythm. Pulses: Normal pulses. Heart sounds: Normal heart sounds. No murmur heard. Pulmonary: Effort: Pulmonary effort is normal. No respiratory distress. Breath sounds: Normal breath sounds. Abdominal: General: There is no distension. Palpations: Abdomen is soft. Tenderness: There is no abdominal tenderness. Musculoskeletal: General: No swelling. Normal range of motion. Cervical back: Normal range of motion and neck supple. Skin: General: Skin is warm and dry. Capillary Refill: Capillary refill takes less than 2 seconds. Neurological: General: No focal deficit present. Mental Status: He is alert. Mental status is at baseline. DIAGNOSTIC RESULTS Procedures/EKG: EKG was reviewed by myself. Physician EKG interpretation can be found in [facility] RADIOLOGY (Per Emergency Physician): Interpretation per the Radiologist below, if available at the time of this note: No orders to display ED BEDSIDE ULTRASOUND: Performed by ED Physician - none LABS: Labs Reviewed CBC WITH AUTO DIFFERENTIAL - Abnormal Result Value Auto WBC 4.4 RBC 4.89 Hemoglobin 16.2 Hematocrit 46.6 MCV 95.3 MCH 33.1 MCHC 34.8 RDW 13.0 Platelets 214 MPV 8.8 (*) nRBC 0.0 Neutrophils Relative 43.8 Lymphocytes Relative 38.4 Monocytes Relative 13.9 (*) Eosinophils Relative 2.3 Basophils Relative 1.4 Immature Grans % 0.2 Neutrophils Absolute 1.9 Lymphocytes Absolute 1.7 Monocytes Absolute 0.6 Eosinophils Absolute 0.1 Basophils Absolute 0.1 Immature Grans Absolute 0.0 ETHANOL - Abnormal ETHANOL IN SER/PLAS 334 (*) Narrative: 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 NOTE: This result is for medical treatment only. Analysis performed using non-forensic procedures. COMPREHENSIVE METABOLIC PANEL - Abnormal SODIUM 135 (*) POTASSIUM 4.4 CHLORIDE 99 CARBON DIOXIDE 25 ANION GAP 11 UREA NITROGEN 5 (*) CREATININE 0.65 (*) GLUCOSE 91 CALCIUM 8.9 AST (SGOT) 136 (*) ALT 189 (*) ALKALINE PHOSPHATASE 94 ALBUMIN 3.9 BILIRUBIN, TOTAL 0.5 TOTAL PROTEIN 7.1 eGFR >90.0 SARS-COV-2 ANTIGEN - Normal SARS-CoV-2 Antigen Negative MAGNESIUM - Normal MAGNESIUM 2.0 Narrative: Higher values can be expected in females during menses. LIPASE - Normal LIPASE 44 COMPLETE URINALYSIS - Normal Color, Urine Light Yellow Clarity, Urine Clear pH, Urine 5.5 Leukocytes, Urine Negative Nitrite, Urine Negative Protein, Urine Negative Glucose, Urine Normal Bilirubin, Urine Negative Ketones, Urine Negative Urobilinogen, Urine Normal Blood, Urine Negative SPECIFIC GRAVITY OF URINE (NUMERIC) 1.010 COMPLETE URINALYSIS WITH REFLEX TO CULTURE Narrative: The following orders were created for panel order Urinalysis complete with reflex to Culture. Procedure Abnormality Status --------- ------ Complete Urinalysis[[id number]] Normal Final result Please view results for these tests on the individual orders. UNCONFIRMED DRUG SCREEN All other labs were within normal range or not returned as of this dictation. EMERGENCY DEPARTMENT COURSE and DIFFERENTIAL DIAGNOSIS/MDM: Vitals: Vitals: 04/09/24 1840 04/09/24 2217 BP: (!) 140/86 132/88 Pulse: 96 97 Resp: 19 Temp: 36.3 C (97.3 F) TempSrc: Temporal SpO2: 96% 95% Diagnoses as of 04/09/242254 Alcoholic intoxication without complication (CMS/HCC) ([facility]) The patient presented with chief complaint of alcohol detox. The differential diagnosis associated with this patient's presentation includes alcohol detox, drug intoxication, electrolyte abnormalities. Our workup consisted of ordering/reviewing: medical clearance. Patient is in agreement with this plan. Medications thiamine (Vitamin B1) tablet 100 mg (100 mg Oral Given 04/09/242044) folic acid (Folvite) tablet 1 mg (1 mg Oral Given 04/09/242044) ondansetron (Zofran) injection 4 mg (4 mg IntraVENous Given 04/09/242044) sodium chloride 0.9 % bolus 1,000 mL (1,000 mL IntraVENous New Bag 04/09/242045) PHENobarbital tablet 97.2 mg (97.2 mg Oral Given 04/09/242044) REVAL: 58-year-old male presenting to the ED requesting alcohol detox. Last drink prior to arrival. Vitals are stable. Patient given IV fluids, Zofran and started on phenobarbital. Will obtain labs for medical clearance. Patient will be admitted for detox. CRITICAL CARE TIME CONSULTS: None PROCEDURES: Unless otherwise noted below, none Procedures Patients symptoms are consistent with sepsis, severe sepsis, or septic shock (If yes use .sepsiscoremeasure): FINAL IMPRESSION 1. Alcoholic intoxication without complication (CMS/HCC) ([facility]) DISPOSITION Admit 04/09/2024 10:55:05 PM PATIENT REFERRED TO: No follow-up provider specified. DISCHARGE MEDICATIONS: New Prescriptions No medications on file (Comment: Please note this report has been produced using speech recognition software and may contain errors related to that system including errors in grammar, punctuation, and spelling, as well as words and phrases that may be inappropriate. If there are any questions or concerns please feel free to contact the dictating provider for clarification.) Kolby Whiteside DO (electronically signed) Emergency Medicine Provider Kolby Whiteside DO 04/09/242254 [facility] 04-09-2024 Physician Emergency department Note Emergency Department Encounter Location: [facility] ED Patient: Maria De Jesus Hogan : 1965 Date of evaluation: 04/09/2024 ED Provider: Steve Demarco MD Time received sign-out: 1100pm Maria De Jesus Hogan was checked out to me by Dr Whiteside. Please see his/her initial documentation for details of the patient's initial ED presentation, physical exam and completed studies. In brief, Maria De Jesus Hogan is a 58 y.o. adult that presented to the emergency department wanting alcohol detox. Was still pending his urine drug screen as well as discussion with detox provider I have reviewed and interpreted all of the currently available lab results and diagnostics from this visit: Results for orders placed or performed during the hospital encounter of 04/09/24 ECG 12 lead Collection Time: 04/09/24 8:34 PM Result Value Ref Range Heart Rate 87 bpm QRSD Interval 96 ms QT Interval 409 ms QTC Interval 493 ms P [place] 65 degrees QRS [place] 59 degrees T Wave [place] 44 degrees VA Interval 162 ms CBC auto differential Collection Time: 04/09/24 8:39 PM Result Value Ref Range Auto WBC 4.4 3.6 - 10.7 10*3/uL RBC 4.89 4.40 - 5.90 10*6/uL Hemoglobin 16.2 13.0 - 18.0 g/dL Hematocrit 46.6 40.0 - 52.0 % MCV 95.3 77.0 - 99.0 fL MCH 33.1 26.0 - 34.0 pg MCHC 34.8 30.5 - 36.0 % RDW 13.0 11.5 - 15.0 % Platelets 214 140 - 440 10*3/uL MPV 8.8 (L) 9.0 - 12.7 fL nRBC 0.0 0.0 - 2.0 /100 WBCs Neutrophils Relative 43.8 38.0 - 82.0 % Lymphocytes Relative 38.4 15.0 - 45.0 % Monocytes Relative 13.9 (H) 5.0 - 13.0 % Eosinophils Relative 2.3 0.0 - 6.0 % Basophils Relative 1.4 0.0 - 2.0 % Immature Grans % 0.2 0.0 - 2.0 % Neutrophils Absolute 1.9 1.8 - 7.5 10*3/uL Lymphocytes Absolute 1.7 1.0 - 4.3 10*3/uL Monocytes Absolute 0.6 0.0 - 0.9 10*3/uL Eosinophils Absolute 0.1 0.0 - 0.5 10*3/uL Basophils Absolute 0.1 0.0 - 0.2 10*3/uL Immature Grans Absolute 0.0 <0.1 10*3/uL Magnesium Collection Time: 04/09/24 8:39 PM Result Value Ref Range MAGNESIUM 2.0 1.6 - 2.6 mg/dL Lipase Collection Time: 04/09/24 8:39 PM Result Value Ref Range LIPASE 44 <55 U/L Ethanol Collection Time: 04/09/24 8:39 PM Result Value Ref Range ETHANOL IN SER/PLAS 334 (HH) <10 mg/dL Comprehensive metabolic panel Collection Time: 04/09/24 8:39 PM Result Value Ref Range SODIUM 135 (L) 136 - 145 mmol/L POTASSIUM 4.4 3.5 - 5.1 mmol/L CHLORIDE 99 98 - 107 mmol/L CARBON DIOXIDE 25 22 - 29 mmol/L ANION GAP 11 3 - 13 mmol/L UREA NITROGEN 5 (L) 9 - 23 mg/dL CREATININE 0.65 (L) 0.72 - 1.25 mg/dL GLUCOSE 91 74 - 100 mg/dL CALCIUM 8.9 8.4 - 10.2 mg/dL AST (SGOT) 136 (H) <34 U/L ALT 189 (H) <40 U/L ALKALINE PHOSPHATASE 94 40 - 150 U/L ALBUMIN 3.9 3.5 - 5.0 g/dL BILIRUBIN, TOTAL 0.5 <1.2 mg/dL TOTAL PROTEIN 7.1 6.4 - 8.3 g/dL eGFR >90.0 >60.0 mL/min/1.73m*2 SARS-CoV-2 Antigen Collection Time: 04/09/24 8:40 PM Specimen: Nasal; Swab Result Value Ref Range SARS-CoV-2 Antigen Negative Negative Complete Urinalysis Collection Time: 04/09/24 8:40 PM Result Value Ref Range Color, Urine Light Yellow Lt. Yellow Clarity, Urine Clear Clear pH, Urine 5.5 5.0 - 8.0 pH Leukocytes, Urine Negative Negative Estefani/uL Nitrite, Urine Negative Negative Protein, Urine Negative Negative mg/dL Glucose, Urine Normal Normal (<70) mg/dL Bilirubin, Urine Negative Negative mg/dL Ketones, Urine Negative Negative mg/dL Urobilinogen, Urine Normal Normal (0-1) mg/dL Blood, Urine Negative Negative mg/dL SPECIFIC GRAVITY OF URINE (NUMERIC) 1.010 1.005 - 1.030 Drug screen panel, emergency Collection Time: 04/09/24 8:40 PM Result Value Ref Range AMPHETAMINE SCREEN Negative BARBITURATES SCREEN Negative BENZODIAZEPINE SCREEN Negative COCAINE METAB. SCREEN Negative METHADONE SCREEN Negative OPIATES SCREEN Negative OXYCODONE SCREEN Negative PHENCYCLIDINE SCREEN Negative FENTANYL SCREEN, UR QUAL Negative No orders to display Final ED Course and MDM: Maria De Jesus Hogan is a 58 y.o. whose care was signed out to me by the outgoing provider. In brief, patient presenting with alcohol withdrawal symptoms his alcohol level is significantly elevated and appears slightly intoxicated he has never had withdrawal seizures although does endorse severe withdrawal symptoms and has been through detox in the past. He does not have insurance at this time and cannot be admitted to our detox service so we will be admitting to hospitalist for alcohol withdrawal management Medications thiamine (Vitamin B1) tablet 100 mg (100 mg Oral Given 04/09/242044) folic acid (Folvite) tablet 1 mg (1 mg Oral Given 04/09/242044) ondansetron (Zofran) injection 4 mg (4 mg IntraVENous Given 04/09/242044) sodium chloride 0.9 % bolus 1,000 mL (0 mL IntraVENous Stopped 04/09/242145) PHENobarbital tablet 97.2 mg (97.2 mg Oral Given 04/09/242044) I Steve Demarco MD am the primary care coordinator of record. Final Impression 1. Alcoholic intoxication without complication (CMS/HCC) ([facility]) DISPOSITION Admit 04/10/2024 12:06:32 AM (Please note that portions of this note may have been completed with a voice recognition program. Efforts were made to edit the dictations but occasionally words are mis-transcribed.) Steve Demarco MD [employer] Steve Demarco MD 04/10/24 0007 [facility] 03-09-2024 Note My Chart messaged th e patient letting him know he was referred for smoking cessation counseling. Gave contact information, will provide follow up. [facility] 03-02-2024 Note LVM letting the anjali ent know they were referred for smoking cessation counseling. Gave contact information, will provide follow up. [facility] 02-28-2024 History of Present illness Narrative Chief Complaint: Chief Complaint Patient presents with New Patient Lung Nodule History of Present Illness: HPI 58 y/o male smoker, history of alcohol abuse, presenting for evaluation of an abnormal lung cancer screening CT chest. Personally reviewed/interpreted imaging today. Multiple small nodules including an 8x12 mm pleural based, irregular opacity (appears to be RML). He has no personal history of malignancy. His mother had rectal cancer. No known lung disease. Denies respiratory symptoms. Denies infectious symptoms. He has required detox for alcohol abuse/withdrawal multiple times. He appears to have been drinking recently today. I reviewed his ED notes, addiction medicine notes, and PCP notes today. He is working on quitting smoking with NRT. Past Medical History: Past Medical History: Diagnosis Date Alcohol abuse Alcohol dependence with withdrawal (HCC) 08/31/2019 Alcohol intoxication without use disorder, uncomplicated (HCC) 10/01/2019 Alcohol use disorder 09/10/2022 Alcohol withdrawal syndrome with complication (HCC) 09/27/2021 Alcohol withdrawal syndrome without complication (HCC) Alcohol withdrawal with inpatient treatment without complication (HCC) 01/20/2024 Alcohol withdrawal, uncomplicated (HCC) 08/31/2019 Alcohol withdrawal, with unspecified complication (HCC) 10/02/2019 Alcohol withdrawal, with unspecified complication (HCC) 10/02/2019 Alcoholism (CMS/HCC) (HCC) Anxiety Arthritis Maria De Jesus Cerebral artery occlusion with cerebral infarction (HCC) Cerebrovascular disease Depression GERD (gastroesophageal reflux disease) Maria De Jesus Hypertension Insomnia Social History: Social History Socioeconomic History Marital status: Tobacco Use Smoking status: Every Day Current packs/day: 2.00 Average packs/day: 2.0 packs/day for 38.4 years (76.8 ttl pk-yrs) Types: Cigarettes Start date: 10/10/1985 Smokeless tobacco: Never Vaping Use Vaping status: Never Used Substance and Sexual Activity Alcohol use: Yes Comment: Detox home for a week 0 drinks 02/17/23, 6 tall boys/ daily 11/28/23 Drug use: No Sexual activity: Yes Partners: Female control/protection: Other Comment: live with Social Drivers of Health Financial Resource Strain: Low Risk (01/28/2024) Overall Financial Resource Strain (CARDIA) Difficulty of Paying Living Expenses: Not very hard Recent Concern: Financial Resource Strain - Medium Risk (01/20/2024) Overall Financial Resource Strain (CARDIA) Difficulty of Paying Living Expenses: Somewhat hard Food Insecurity: No Food Insecurity (01/28/2024) Hunger Vital Sign Worried About Running Out of Food in the Last Year: Never true Ran Out of Food in the Last Year: Never true Transportation Needs: No Transportation Needs (01/21/2024) PRAPARE - Transportation Lack of Transportation (Medical): No Lack of Transportation (Non-Medical): No Physical Activity: Inactive (01/20/2024) Exercise Vital Sign Days of Exercise per Week: 0 days Minutes of Exercise per Session: 0 min Stress: No Stress Concern Present (01/20/2024) [place] [employer] - Occupational Stress Questionnaire Feeling of Stress : Not at all Social Connections: Unknown (01/28/2024) Social Connection and Isolation Panel [NHANES] Frequency of Communication with Friends and Family: Twice a week Frequency of Social Gatherings with Friends and Family: Patient unable to answer Attends Synagogue Services: Never Active Member of Clubs or Organizations: No Attends Club or Organization Meetings: Never Marital Status: Recent Concern: Social Connections - Socially Isolated (01/20/2024) Social Connection and Isolation Panel [NHANES] Frequency of Communication with Friends and Family: Never Frequency of Social Gatherings with Friends and Family: Never Attends Synagogue Services: Never Active Member of Clubs or Organizations: No Attends Club or Organization Meetings: Never Marital Status: Intimate Partner Violence: Not At Risk (01/21/2024) Humiliation, Afraid, Rape, and Kick questionnaire Fear of Current or Ex-Partner: No Emotionally Abused: No Physically Abused: No Sexually Abused: No Housing Stability: High Risk (01/28/2024) Housing Stability Vital Sign Unable to Pay for Housing in the Last Year: No Number of Times Moved in the Last Year: 2 Homeless in the Last Year: No Family History: Family History Problem Relation Name Age of Onset Depression Sister Maria De Jesus Hogan Other ([id number]) Sister Maria De Jesus Hogan agoraphobia Arthritis Sister Maria De Jesus Hogan Cancer Mother Maria De Jesus Hogan colon rectal cancer; dx after age 50 Other ([id number]) Mother Maria De Jesus Hogan alcoholism Alcohol abuse Mother Maria De Jesus Hogan Stroke Mother Maria De Jesus Hogan Other ([id number]) Father Maria De Jesus Hogan h/o rheumatic fever, cardiac arrest due to bee sting Hypertension Father Maria De Jesus Hogan ROS: Review of Systems All other systems reviewed and are negative. Medications: Current Outpatient Medications Medication Sig Dispense Refill albuterol 108 (90 Base) MCG/ACT inhaler Inhale 2 puffs every 6 hours as needed for wheezing or shortness of breath. 3 each 1 calcipotriene (Dovonex) 0.005 % cream Apply topically 2 times daily. 60 g 3 clobetasol (Temovate) 0.05 % cream Apply topically 2 times daily. 60 g 3 gabapentin (Neurontin) 300 MG capsule Take 2 capsules (600 mg) by mouth 3 times daily. 180 capsule 3 melatonin 5 MG tablet Take 1 tablet (5 mg) by mouth Nightly. 90 tablet 1 Multiple Vitamins tablet Take 1 tablet by mouth daily. 90 tablet 1 nicotine polacrilex (Nicotine Mini) 4 MG lozenge Dissolve 1 lozenge (4 mg) in the mouth every 2 hours as needed for smoking cessation. 100 lozenge 3 pantoprazole (ProtoNix) 40 MG EC tablet Take 1 tablet (40 mg) by mouth daily. 90 tablet 1 Thiamine Mononitrate (Vitamin B1) 100 MG tablet Take 1 tablet (100 mg) by mouth daily. 90 tablet 1 naltrexone ER (Vivitrol) injection Inject 4 mL (380 mg) into the buttocks Once for 1 dose. 4 mL 0 No current facility-administered medications for this visit. Allergies: Allergies Allergen Reactions Bee Venom Swelling Nickel Rash Tramadol Nausea And Vomiting Other reaction(s): AOF Physical Exam: BP Temp Pulse Resp SpO2 BP 126/86 (BP Location: Left arm, Patient Position: Sitting, BP Cuff Size: Adult) Pulse 100 Ht 5' 11 (1.803 m) Wt 233 lb (106 kg) SpO2 94% Comment: RA BMI 32.50 kg/m Physical Exam Constitutional: General: He is not in acute distress. Appearance: He is ill-appearing (chronically). He is not toxic-appearing. HENT: Head: Normocephalic and atraumatic. Nose: Nose normal. No congestion or rhinorrhea. Mouth/Throat: Mouth: Mucous membranes are moist. Pharynx: Oropharynx is clear. No oropharyngeal exudate. Eyes: General: No scleral icterus. Conjunctiva/sclera: Conjunctivae normal. Cardiovascular: Rate and Rhythm: Normal rate and regular rhythm. Heart sounds: No murmur heard. No friction rub. No gallop. Pulmonary: Effort: Pulmonary effort is normal. No respiratory distress. Breath sounds: No stridor. No wheezing, rhonchi or rales. Abdominal: General: There is no distension. Musculoskeletal: General: No swelling, tenderness, deformity or signs of injury. Skin: General: Skin is warm and dry. Coloration: Skin is not pale. Findings: No erythema or rash. Neurological: General: No focal deficit present. Mental Status: He is alert and oriented to person, place, and time. Psychiatric: Mood and Affect: Mood normal. Behavior: Behavior normal. Comments: Poor concentration, may be intoxicated Assessment and Plan: 1. Pulmonary nodule Irregular 1 cm nodule (medial right lung, likely RML), has a scar like appearance. Given size and risk factors, warrants routine follow up with CT in 3 months. Discussed findings with patient and his family. - CT chest wo IV contrast; Future 2. Pulmonary emphysema, unspecified emphysema type (HCC) (Primary) Consider PFTs if additional evaluation for nodule is needed. 3. Cigarette nicotine dependence with other nicotine-induced disorder Interested in assistance with smoking cessation - Ambulatory referral to [facility]essation [facility] 4. Alcohol abuse May complicate adherence to medical plan and also would be a concern if surgery required. Follow-up: 3 months with [facility] (prefers [facility]) documented in this encounter [facility] 02-28-2024 Instructions Manpreet Patiño MA - 02/28/2024 9:30 AM EST YOUR APPOINTMENT TODAY WAS WITH THE [facility] LUNG NODULE CLINIC, COPD CLINIC, PULMONARY AND SLEEP MEDICINE OFFICE. PLEASE CALL OUR OFFICE AT [phone] IF YOU HAVE NOT RECEIVED YOUR TEST RESULTS 7 DAYS AFTER TESTING IS COMPLETED. PLEASE REMEMBER TO REQUEST REFILLS AT YOUR OFFICE VISITS. PHONE/FAX REQUESTS REQUIRE 48-72 HOURS FOR RESPONSE. A FRIENDLY REMINDER COPAYS ARE DUE AT TIME OF SERVICE. THANK YOU. Our Patients Are Important! We want to improve and you can help. After your visit we want you to feel: Listened to, Respected and have your health care explained. You may receive a survey asking you about your visit. Please complete the survey. We will use your feedback to make improvements. COVID-19 VACCINATION INFORMATION: PH. [phone] [email or web address] [facility] Scheduling [phone] [facility] Sleep Scheduling [phone] documented in this encounter [facility] 02-18-2024 History of Present illness Narrative Lung Nodule Multidisciplinary Review Conference Consensus Recommendation Summary Privileged Information LUNG NODULE CONFERENCE CLINICAL SUMMARY Basic Demographic Information Maria De Jesus Hogan Date of presentation : 02/18/24 1965 Presenter: Marina Hartley RRT 58 y.o. [] Previous presentation date : Presentation Type [] Prospective [] Retrospective [x] Nodule Brief Clinical Summary & Lung Nodule Conference Review Recommendations 4 Maria De Jesus Hogan Dx: Lung Rads 4A Screening Presenter: Marina aHrtley RRT Clin: T N M Stage: Path: T N M Stage: : 69 Smoking History:78 pk yr 2 ppd [x] Current [] Former [] Never Surg. Onc: Pulm: [facility] referral placed Med. Onc: Other: Imaging and Procedures [] Prospective [] Retrospective Rad. Onc: PCP: Dr. Lynda Rasheed Screenin02/11/24 MRI: Summary: 58-year-old current heavy smoker with family history of rectal cancer in mom. Recent admission for alcohol detoxification. Sent by PCP for initial lung screening CT. PCP attempting to contact patient in lung nodule clinic referral has been placed. Presents to review imaging and discuss next diagnostic steps. CT C: none PET: CT A/P: 07/27/23 PFT: none Other: PATH: Recommendations: 1.) Dx LDCT chest in 3 months Available Protocol Recommendation [] Yes Protocol: Report Completed by Fadia Hartley RCP 02/18/2024 Lung Nodule Conference Moderator-Catalino Bradley MD Recommendations from Lung Nodule Multidisciplinary Review Conference are based on national evidence based guidelines. The plan used by the managing physician(s) may vary based on the status of the individual patient and the reports results made available at time of presentation. We recognize that this data set may change and that the final treatment plan may differ from this recommendation. documented in this encounter [facility] 02-14-2024 Note Received RESPIRATORY SUPPORT TECHNICIAN referral to [facility]. 1st attempt- VMX1. Will offer pt 12/[address] Barajas in [facility]. [facility] 02-14-2024 Telephone encounter Note Received RESPIRATORY SUPPORT TECHNICIAN referral to [facility]. 1st attempt- VMX1. Will offer pt 12/[address] Barajas in [facility]. [facility] 02-14-2024 Miscellaneous Notes Received RESPIRATORY SUPPORT TECHNICIAN referral to [facility]. 1st attempt- VMX1. Will offer pt 12/[address] Barajas in [facility]. I was able to speak with patient, I notified him of the results, and provided him with the number to the clinic so he can call to set up an appointment. I also [facility] for him as well to has access to that way. Called and left message for patient to call back. His CT scan was abnormal. suspicious nodules nodules along the lung seen. I tried calling patient. No awnser left message to call back. Please make sure you call patient if you are unable to reach him a certified letter needs to be done a referral has been placed so he is aware to the nodular pulmonary clinic. DO not close encounter until patient is aware of results and referral Maria De Jesus Hogan 1965 had an abnormal Lung Rads 4A lung screening CT and an expedited referral to the [facility] lung nodule clinic is recommended. If you agree, please notify patient of findings and consider placing lung nodule clinic referral at this time. Navigators are available to assist with expediting follow-up. Imaging will be reviewed at the upcoming lung nodule review conference on 02/18/2024 and recommendations will be shared with providers. documented in this encounter [facility] 02-14-2024 Telephone encounter Note I was able to speak with patient, I notified him of the results, and provided him with the number to the clinic so he can call to set up an appointment. I also sent information to his [facility] for there referral for him as well to has access to that way. [facility] 02-13-2024 Telephone encounter Note Called and left message for patient to call back. His CT scan was abnormal. suspicious nodules nodules along the lung seen. I tried calling patient. No awnser left message to call back. Please make sure you call patient if you are unable to reach him a certified letter needs to be done a referral has been placed so he is aware to the nodular pulmonary clinic. DO not close encounter until patient is aware of results and referral [facility] 02-13-2024 Telephone encounter Note Maria De Jesus Hogan 1965 had an abnormal Lung Rads 4A lung screening CT and an expedited referral to the [facility] lung nodule clinic is recommended. If you agree, please notify patient of findings and consider placing lung nodule clinic referral at this time. Navigators are available to assist with expediting follow-up. Imaging will be reviewed at the upcoming lung nodule review conference on 02/18/2024 and recommendations will be shared with providers. [facility] 02-13-2024 Telephone encounter Note error [facility] 02-13-2024 Miscellaneous Notes error documented in this encounter [facility] 02-06-2024 Telephone encounter Note Seen yesterday No future appt [facility] 02-06-2024 Miscellaneous Notes Seen yesterday No future appt documented in this encounter [facility] 02-06-2024 Telephone encounter Note 06/26/23 last filled Seen yesterday. No future appt set up [facility] 02-06-2024 Miscellaneous Notes 06/26/23 last filled Seen yesterday. No future appt set up documented in this encounter [facility] 02-05-2024 History of Present illness Narrative Images from the original note were not included. [facility] [address] [facility] [facility] [address] Dept: [phone] Dept Loc: [phone] Reason for Visit: Follow-up (Med Check ) and Flu Vaccine (Patient has already received the flu vaccine, pt does not remember date received ) Assessment and Plan 1. Screening PSA (prostate specific antigen) - PSA Screening 2. Psoriasiform seborrheic dermatitis prescribed patient the Dovonex and clobetasol cream. Keep the area moisturized. - gabapentin (Neurontin) 300 MG capsule; Take 2 capsules (600 mg) by mouth 3 times daily., Starting Sat02/05/2024, Until Sat02/04/2025, Normal - calcipotriene (Dovonex) 0.005 % cream; Apply topically 2 times daily., Starting Sat02/05/2024, Normal - clobetasol (Temovate) 0.05 % cream; Apply topically 2 times daily., Starting Sat02/05/2024, Normal - pantoprazole (ProtoNix) 40 MG EC tablet; Take 1 tablet (40 mg) by mouth daily., Starting Sat02/05/2024, Normal - nicotine polacrilex (Nicotine Mini) 4 MG lozenge; Dissolve 1 lozenge (4 mg) in the mouth every 2 hours as needed for smoking cessation., Starting Sat02/05/2024, Until Sat03/06/2024 at 2359, Normal - Comprehensive metabolic panel - PSA Screening - Lipid panel 3. Elevated liver enzymes we will continue to monitor liver enzymes. CMP recently done. - gabapentin (Neurontin) 300 MG capsule; Take 2 capsules (600 mg) by mouth 3 times daily., Starting Sat02/05/2024, Until Sat02/04/2025, Normal - calcipotriene (Dovonex) 0.005 % cream; Apply topically 2 times daily., Starting Sat02/05/2024, Normal - clobetasol (Temovate) 0.05 % cream; Apply topically 2 times daily., Starting Sat02/05/2024, Normal - pantoprazole (ProtoNix) 40 MG EC tablet; Take 1 tablet (40 mg) by mouth daily., Starting Sat02/05/2024, Normal - nicotine polacrilex (Nicotine Mini) 4 MG lozenge; Dissolve 1 lozenge (4 mg) in the mouth every 2 hours as needed for smoking cessation., Starting Sat02/05/2024, Until Sat03/06/2024 at 2359, Normal - Comprehensive metabolic panel - PSA Screening - Lipid panel 4. Screening for colon cancer referral for colonoscopy done - [facility] General Surgery - Sotero Madsen MD 5. Current smoker patient was advised to stop smoking understands the bad effects of smoking nicotine lozenges sent in as the patient has been successful with this in the past a CT lung screening ordered - CT lung screening low dose current treatment plan is effective, no change in therapy, orders and follow up as documented in EMR, lab results reviewed with patient, repeat labs ordered prior to next appointment, reviewed compliance with lifestyle measures, reviewed diet, exercise and weight control, reviewed medications and side effects in detail Return visit in 3 months. Subjective HPI this is a 58-year-old male with multiple medical problems. Patient was admitted to the detox unit for alcohol. Now he has been working with the investigation specialist with Vivitrol injections. He states he was also on gabapentin which seems to help. He is asking for refill for this and continues to see the investigation specialist for his Vivitrol injection. He also has a history of well-known psoriasis he has been taking clobetasol as well as this helps. He mostly has it on his back sometimes his shoulders. It is bothering him. With the medications it has been flaring up. He also is a smoker for at least 40 years 1 pack/day. Used to be 2 packs. He states in the past he has been successful with the nicotine lozenges and would like to possibly start taking those. He and I discussed the CT lung screening he had no blood in his sputum no chronic cough. No history of known lung cancer. In addition to that patient patient also is due for colonoscopy I discussed this in detail Review of Systems Constitutional: Negative. Negative for activity change, appetite change and fever. HENT: Negative. Negative for congestion. Eyes: Negative. Negative for discharge. Respiratory: Negative. Negative for chest tightness. Cardiovascular: Negative. Gastrointestinal: Negative. Endocrine: Negative. Negative for cold intolerance. Genitourinary: Negative for difficulty urinating. Musculoskeletal: Negative. Neurological: Negative. Negative for dizziness, facial asymmetry and headaches. Hematological: Negative. Allergies Allergen Reactions Bee Venom Swelling Nickel Rash Tramadol Nausea And Vomiting Other reaction(s): AOF Outpatient Medications Prior to Visit Medication Sig Dispense Refill albuterol 108 (90 Base) MCG/ACT inhaler Inhale 2 puffs every 6 hours as needed for wheezing or shortness of breath. 3 each 1 melatonin 5 MG tablet Take 1 tablet (5 mg) by mouth Nightly. 90 tablet 1 Multiple Vitamins tablet Take 1 tablet by mouth daily. 90 tablet 1 naltrexone ER (Vivitrol) injection Inject 4 mL (380 mg) into the buttocks Once for 1 dose. 4 mL 0 Thiamine Mononitrate (Vitamin B1) 100 MG tablet Take 1 tablet (100 mg) by mouth daily. 90 tablet 1 calcipotriene (Dovonex) 0.005 % cream Apply topically 2 times daily. 60 g 3 clobetasol (Temovate) 0.05 % cream APPLY CREAM TOPICALLY TWICE DAILY gabapentin (Neurontin) 300 MG capsule Take 2 capsules (600 mg) by mouth 3 times daily. 180 capsule 0 pantoprazole (ProtoNix) 40 MG EC tablet Take 1 tablet (40 mg) by mouth every morning (before breakfast). 90 tablet 0 nicotine (Nicoderm, Step 2) 14 MG/24HR patch Place 1 patch on the skin daily. Do not start before October 23, 2022. (Patient not taking: Reported on 02/05/2024) 30 patch 0 No facility-administered medications prior to visit. 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) Past Medical History: Diagnosis Date Alcohol abuse Alcohol dependence with withdrawal (HCC) 08/31/2019 Alcohol intoxication without use disorder, uncomplicated (HCC) 10/01/2019 Alcohol use disorder 09/10/2022 Alcohol withdrawal syndrome with complication (HCC) 09/27/2021 Alcohol withdrawal syndrome without complication (HCC) Alcohol withdrawal with inpatient treatment without complication (HCC) 01/20/2024 Alcohol withdrawal, uncomplicated (HCC) 08/31/2019 Alcohol withdrawal, with unspecified complication (HCC) 10/02/2019 Alcohol withdrawal, with unspecified complication (HCC) 10/02/2019 Alcoholism (CMS/HCC) (HCC) Anxiety Arthritis Maria De Jesus Cerebral artery occlusion with cerebral infarction (HCC) Cerebrovascular disease Depression GERD (gastroesophageal reflux disease) Maria De Jesus Hypertension Insomnia Social History Tobacco Use Smoking status: Every Day Current packs/day: 2.00 Average packs/day: 2.0 packs/day for 38.3 years (76.6 ttl pk-yrs) Types: Cigarettes Start date: 10/10/1985 Smokeless tobacco: Never Substance Use Topics Alcohol use: Yes Comment: Detox home for a week 0 drinks 02/17/23, 6 tall boys/ daily 11/28/23 Past Surgical History: Procedure Laterality Date COLONOSCOPY 06/10/2020 EGD/Dr Madison/B CYST REMOVAL face EGD (HISTORICAL) 07/23/2022 Dr. Estrella-[facility] SMALL INTESTINE SURGERY UPPER GASTROINTESTINAL ENDOSCOPY 09/27/2021 normal WISDOM TOOTH EXTRACTION Family History Problem Relation Name Age of Onset Depression Sister Maria De Jesus Hogan Other ([id number]) Sister Maria De Jesus Hogan agoraphobia Arthritis Sister Maria De Jesus Hogan Cancer Mother Maria De Jesus Hogan colon rectal cancer; dx after age 50 Other ([id number]) Mother Maria De Jesus Hogan alcoholism Alcohol abuse Mother Maria De Jesus Hogan Stroke Mother Maria De Jesus Hogan Other ([id number]) Father Maria De Jesus Hogan h/o rheumatic fever, cardiac arrest due to bee sting Hypertension Father Maria De Jesus Hogan Health Maintenance Topic Date Due HIV Screening Never done Colorectal Cancer Screening Never done MMR Vaccines (1 of 1 - Standard series) Never done DTaP/Tdap/Td Vaccines (1 - Tdap) Never done Hepatitis B Vaccines (1 of 3 - 19+ 3-dose series) Never done Hepatitis A Vaccines (1 of 2 - Risk 2-dose series) Never done Zoster Vaccines (1 of 2) Never done Lung Cancer Screening Never done Pneumococcal Vaccine: Pediatrics (0 to 5 Years) and At-Risk Patients (6 to 64 Years) (2 of 2 - PCV) 09/26/2023 Diabetes Screening 11/02/2023 Influenza Vaccine (1) 12/01/2023 COVID-19 Vaccine (4 - 2023- season) 2023 Depression Monitoring 07/28/2024 Lipid Panel 07/10/2027 RSV Immunization for Adults (1 - 1-dose 75+ series) 11/14/2042 Hepatitis C Screening Completed RSV Immunization under 20 Months Aged Out HIB Vaccines Aged Out IPV Vaccines Aged Out Meningococcal Vaccine Aged Out Rotavirus Vaccines Aged Out HPV Vaccines Aged Out Objective BP 127/80 Pulse 93 Temp 36.7 C (98.1 F) (Temporal) Ht 5' 11 (1.803 m) Wt 227 lb 9.6 oz (103 kg) SpO2 96% BMI 31.74 kg/m Physical Exam Vitals and nursing note reviewed. Constitutional: Appearance: Normal appearance. HENT: Head: Normocephalic and atraumatic. Nose: No congestion or rhinorrhea. Mouth/Throat: Mouth: Mucous membranes are moist. Pharynx: Oropharynx is clear. No posterior oropharyngeal erythema. Eyes: Extraocular Movements: Extraocular movements intact. Conjunctiva/sclera: Conjunctivae normal. Pupils: Pupils are equal, round, and reactive to light. Cardiovascular: Pulses: Normal pulses. Heart sounds: Normal heart sounds. No murmur heard. Pulmonary: Effort: Pulmonary effort is normal. No respiratory distress. Breath sounds: Normal breath sounds. No wheezing. Abdominal: General: Abdomen is flat. Bowel sounds are normal. Palpations: Abdomen is soft. Tenderness: There is no abdominal tenderness. Musculoskeletal: General: No swelling. Cervical back: Normal range of motion. Skin: General: Skin is warm and dry. Neurological: General: No focal deficit present. Mental Status: He is alert and oriented to person, place, and time. Mental status is at baseline. Psychiatric: Mood and Affect: Mood normal. Data Reviewed and Summarized Labs: Lab Results Component Value Date WBC 4.2 01/20/2024 HGB 16.1 01/20/2024 HCT 46.0 01/20/2024 PLT 156 01/20/2024 TSH 2.092 07/21/2022 PSA 1.035 07/09/2022 INR 0.9 07/21/2022 Lab Results Component Value Date NA 130 (L) 01/22/2024 K 4.0 01/22/2024 CL 96 (L) 01/22/2024 CO2 29 01/22/2024 BUN 7 (L) 01/22/2024 CREATININE 0.61 (L) 01/22/2024 GLUCOSE 98 01/22/2024 CALCIUM 8.9 01/22/2024 PROT 6.6 01/22/2024 BILITOT 0.7 01/22/2024 ALKPHOS 77 01/22/2024 AST 58 (H) 01/22/2024 ALT 75 (H) 01/22/2024 @GLUCOSELAB@ Lab Results Component Value Date CHOL 242 (H) 07/09/2022 CHOL 285 (A) 09/01/2020 CHOL 262 (A) 02/14/2019 Lab Results Component Value Date TRIG 126 07/09/2022 TRIG 120 09/01/2020 TRIG 162 (A) 02/14/2019 Lab Results Component Value Date HDL 70 (H) 07/09/2022 HDL 68 (H) 09/01/2020 HDL 43 02/14/2019 Lab Results Component Value Date LDLCALC 147 (H) 07/09/2022 No results found for: VLDL Lab Results Component Value Date CHOLHDLRATIO 3 07/09/2022 CHOLHDLRATIO 4 09/01/2020 CHOLHDLRATIO 6 02/14/2019 Imaging/Testing: ECG 12 lead Sinus rhythm Consider anterior infarct Electronically Signed On 01-20-2024 19:55:10 EDT by Triston Rasheed MD documented in this encounter [facility] 01-28-2024 History of Present illness Narrative Outpatient Behavioral Health Initial Assessment Start Time: 1417 , End Time: [address] a [address] Appointed Guardian? no Does patient have a Durable Power of Overlocker? no Does the patient have an Advanced Directive? If Yes, copy received? no Screening Tool Score Comment (required for each screening tool) PHQ-9 1 (PHQ-2: 0) Not clinically significant KENY-7 3 Not clinically significant AUDIT-C 11 Likely indicates AUD DAST-10 0 Not clinically significant Life Events Checklist pos Pos in one domain PCL-5 4 Not clinically significant Language Preferred Language: Rwandan Languages Spoken: czech Presenting Problem(s) Reason for visit as reported by patient Chief Complaint Patient presents with Drug / Alcohol Assessment Referral Information Referral source as reported by patient: Physician Type of Physician: Treating Psychiatrist (Comment Name) History of presenting problem(s) (Onset, duration, precipitating factors, why person is here now, contributing stressors): Pt reciently discharged from detox Current Environment/Living Situation Housing Stability In the last 12 months, was there a time when you were not able to pay the mortgage or rent on time?: No In the past 12 months, how many times have you moved where you were living?: 2 At any time in the past 12 months, were you homeless or living in a fci (including now)?: No Patient feels safe at home: Yes Living Arrangements: Spouse/significant other Type of Residence: Private residence Current Family Circumstances (include family involvement, level of family support for treatment, bereavement concerns) Support Systems: Spouse/significant other Lack of Caregiver Support: No Childhood/Adolescent History (note any significant developmental issues, history of abuse/neglect, history of emotional or behavioral concerns, what was it like growing up in your family, etc.): happy, Father at age 11. Family of Origin History Parents' Marital Status: If parents never each other, which parent was primary caregiver? How does patient describe relationship with parents: great How were drugs/alcohol used in your family growing up?: both parents drank Relationship History Describe history of significant partner relationships: (describe history of marriages/other significant romantic relationships): awesome Number of Children: 3 Ages: adult Custody status/concerns (if any): no Has any spouse/significant other struggled with mental health, alcohol or drug problems? No Does patient have any history (childhood or as an adult) of any of the following (document in the medical history): Abuse/Domestic Violence: No Neglect: No Exploitation: No Sexual History Gender Identify: male Sexual Orientation: Straight Have you ever traded sex for anything (i.e. food, money, drugs)? No Have you ever been coerced or forced to engage in any sexual activity? No Cultural & Ethnic Information (note patient's cultural beliefs, values and traditions and identify any impact on treatment) none reported Yazidism/Spiritual Orientation (note if patient identifies any belief in higher power, yarsanism belief, or not. Identify any spiritual/yarsanism beliefs about suicide) none reported Educational History Highest level of education attained: GED Education background (type, setting): public Academic performance and preferred areas of study: general Attitude toward academic achievement: liked it Interest in future education/training: [employer] Vocation/Employment History (If not employed, is patient seeking work, disabled, comment if unemployment related to behavioral health needs at this time) Employment Status: Not Employed Current Employer: Not answered Start Date: Not answered Service Status: Never Served Branch: Not answered Years Served: Additional Comments: Financial Issues How hard is it for you to pay for the very basics like food, housing, medical care, and heating?: Not very hard Social/Support System (describe usual social, peer-group, environmental settings - note if any recent changes) Support Systems: Spouse/significant other Social Connections In a typical week, how many times do you talk on the phone with family, friends, or neighbors?: Twice a week How often do you get together with friends or relatives?: Patient unable to answer How often do you attend pentecostal or yarsanism services?: Never Do you belong to any clubs or organizations such as pentecostal groups, unions, fraternal or athletic groups, or school groups?: No How often do you attend meetings of the clubs or organizations you belong to?: Never Are you , , , , never , or living with a partner?: Leisure & Recreational Interests (hobbies, interests, usual social activities - note if any recent changes) golf Ability to Self Care none reported Community Resources Accessed none Legal History Current Legal Issues?: No Legal Guardian: Are Legal Issues Impacting Treatment?: No Comments: No on 01/28/2024 (Age - 58y) Current Issue Description: Custody Issues?: Days Incarcerated in Past Month: Past Legal Issue: No Comments: No on 01/28/2024 (Age - 58y) Previous DUI?: No Comments: No on 01/28/2024 (Age - 58y) Drug Related Charges?: No Comments: No on 01/28/2024 (Age - 58y) If the patient has ever been arrested, describe the charges:: child support If the patient has ever been to penitentiary or in half-way, list where and how much time the patient served:: 6 mts for child support Is there a relationship between the presenting condition and legal involvement? : No Medical History Past Medical History: Diagnosis Date Alcohol abuse Alcohol dependence with withdrawal (HCC) 08/31/2019 Alcohol intoxication without use disorder, uncomplicated (HCC) 10/01/2019 Alcohol use disorder 09/10/2022 Alcohol withdrawal syndrome with complication (HCC) 09/27/2021 Alcohol withdrawal syndrome without complication (HCC) Alcohol withdrawal with inpatient treatment without complication (HCC) 01/20/2024 Alcohol withdrawal, uncomplicated (HCC) 08/31/2019 Alcohol withdrawal, with unspecified complication (HCC) 10/02/2019 Alcohol withdrawal, with unspecified complication (HCC) 10/02/2019 Alcoholism (CMS/HCC) (HCC) Anxiety Arthritis Maria De Jesus Cerebral artery occlusion with cerebral infarction (HCC) Cerebrovascular disease Depression GERD (gastroesophageal reflux disease) Maria De Jesus Hypertension Insomnia family history includes [id number] in his father, mother, and sister; Alcohol abuse in his mother; Arthritis in his sister; Cancer in his mother; Depression in his sister; Hypertension in his father; Stroke in his mother. Primary Care Provider Lynda Rasheed MD Date of last visit/physical (note patient estimate if date unknown & offer referral if more than 12 months ago): 1 year, has apt in Apr Allergies Allergies Allergen Reactions Bee Venom Swelling Nickel Rash Tramadol Nausea And Vomiting Other reaction(s): AOF Pain Screening (note if involved with pain management program, date(s) and reason) Are you currently experiencing physical pain that makes it difficult to function in your normal routines at home, work, etc.?: No Clinician Concerns, Clarifications, Referral Referral Indicated:: No Nutrition Screening (note any specific concerns) Do you have any food allergies or sensitivities?: No Have you experienced a weight loss or gain of 10 pounds or more in the last 3 months?: No Do you have tooth/mouth/dental problems that make it hard for you to eat?: No Have you experienced a decrease in food intake and/or appetite?: No Within the past 12 months, you worried that your food would run out before you got the money to buy more.: Never true Within the past 12 months, the food you bought just didn't last and you didn't have money to get more.: Never true Do you have any other nutrition concerns at this time?: No Clinician Concerns, Clarifications, Referral Referral Indicated:: No Hospitalized/ER/Surgery in the last 3 months (if yes, include date and reason) detox -2023 at [facility] Past Surgical History: Procedure Laterality Date COLONOSCOPY 06/10/2020 EGD/Dr Madison/[facility] CYST REMOVAL face EGD (HISTORICAL) 07/23/2022 Dr. Estrella-[facility] SMALL INTESTINE SURGERY UPPER GASTROINTESTINAL ENDOSCOPY 09/27/2021 normal WISDOM TOOTH EXTRACTION Psychiatric & Substance Use Treatment History (Current/Past, Inpatient/Outpatient) Inpatient Hospitalization: Yes Comments: Yes on 01/28/2024 Emergency Room Visits: Yes Comments: Yes on 01/28/2024 Inpatient Substance Abuse Treatment: No Comments: Yes on 01/28/2024 No on 01/28/2024 Outpatient Substance Abuse Treatment: Yes Comments: Yes on 01/28/2024 Emotional & Behavioral Symptoms & Functioning (current and past history) Depression Description: Symptoms: No problems reported or observed [place] Description: No problems reported or observed Symptoms: Anxiety Symptoms: Generalized, Restless or feeling keyed up or on edge Description: Panic Description: Symptoms: No problems reported or observed Trauma Description: Symptoms: No problems reported or observed Other notable emotional/behavioral symptoms/functioning not listed above: In-Depth Substance Use Assessment In-Depth Substance Use Assessment needed? Yes If no assessment needed, reason: No data recorded If assessment needed, substance(s): Alcohol Alcohol Age at first use: 18 year(s) old How was/is alcohol obtained: friends Current type, amount and frequency: 7-8 tall boys daily Pattern of use: daily Last use date and amount: 01/13/2024 Current route or method of ingestion: oral Tolerance or withdrawal: yes Marijuana (No data recorded) Age at first use: No data recorded How was/is marijuana obtained: No data recorded Current type, amount and frequency: No data recorded Pattern of use: No data recorded Last use date and amount: No data recorded Current route or method of ingestion: No data recorded Tolerance or withdrawal: No data recorded Opiates (No data recorded) Age at first use: No data recorded How were/are opiates obtained: No data recorded Current type, amount and frequency: No data recorded Pattern of use: No data recorded Last use date and amount: No data recorded Current route or method of ingestion: No data recorded Tolerance or withdrawal: No data recorded Sedatives (No data recorded Age at first use: No data recorded How were/are sedatives obtained: No data recorded Current type, amount and frequency: No data recorded Pattern of use: No data recorded Last use date and amount: No data recorded Current route or method of ingestion: No data recorded Tolerance or withdrawal: No data recorded Nicotine (No data recorded) Age at first use: No data recorded How was/is nicotine obtained: No data recorded Current type, amount and frequency: No data recorded Pattern of use: No data recorded Last use date and amount: No data recorded Current route or method of ingestion: No data recorded Tolerance or withdrawal: No data recorded Stimulants (No data recorded) Age at first use: No data recorded How were/are stimulants obtained: No data recorded Current type, amount and frequency: No data recorded Pattern of use: No data recorded Last use date and amount: No data recorded Current route or method of ingestion: No data recorded Tolerance or withdrawal: No data recorded Other Hallucinogens (No data recorded) Age at first use: No data recorded How were/are hallucinogens obtained: No data recorded Current type, amount and frequency: No data recorded Pattern of use: No data recorded Last use date and amount: No data recorded Current route or method of ingestion: No data recorded Tolerance or withdrawal: No data recorded Any other forms of addiction noted? N/A Additional Information Regarding Drug of Choice Morning use? Yes Do you believe you can control your use once you start? No Longest and last period of voluntary abstinence: one year Twelve-step meeting attendance? No Are you willing to attend 12-Step meetings? Maybe Do you have a sponsor? No When you have cut down or stopped using your drug(s) of choice, have you experienced any of the following? Shakes/tremors; Weakness; Cravings; Nervousness/irritability; Sweating; Heart palpitations; Sleep difficulties History of/Need for Detox Admission Number of detox admissions: 3 Location: [facility] Date: 01/13/24 Is there an immediate need for a detox admission at the time of this assessment? No withdrawal symptoms Diagnostic Criteria for Substance-Use Disorders Checklist 1. Is the substance often taken in larger amounts or over a longer period than was intended? Yes 2. Is there a persistent desire or unsuccessful efforts to cut down or control use? Yes 3. Is a great deal of time spent in activities necessary to obtain a substance, or recovering from its effects? Yes 4. Does the client have a craving or strong desire or urge to use substances? Yes 5. Is there a recurrent substance use resulting in a failure to fulfill major role obligations at work, school or home? Yes 6. Is there continued substance use despite having persistent or recurrent social or interpersonal problems caused or exacerbated by the effects of the substance use? Yes 7. Are important social, occupational, or recreational activities given up or reduced because of substance use? Yes 8. Is there recurrent substance use in situations in which it is physically hazardous? Yes 9. Is substance use continued despite knowledge of having a persistent or recurrent physical or psychological problem that is likely to have been cause or exacerbated by substance use? Yes (liver emzines eleviated) 10a) Does client have a need for markedly increased amounts of a substance to achieve intoxication or desired effect? Yes 10b) Does client experience a markedly diminished effect with continued use of the same amount of a substance? Yes 11a) Has the client experienced withdrawal syndrome? Yes 11b) Has the client continued to take a substance to avoid withdrawal, or taken some other substance in order to feel okay? Yes (over the counter sleeping pills) Substance: Alcohol Alcohol Severity: Severe Substance Use Disorder Cannabis Severity: No data recorded Hallucinogens Severity: No data recorded Inhalants Severity: No data recorded Opioids Severity: No data recorded Sedative/Hypnotics Severity: No data recorded Stimulants Severity: No data recorded Other Severity: No data recorded Remission Status Specify remission status if applicable: No data recorded Substance(s) in remission: No data recorded How long has client been free of all symptoms? 2 weeks Summary of Multidimensional Assessment (ASAM) 0 Dimension 1 Severity Rating (Substance Use, Acute Intoxication, Withdrawal Potential): No Risk/Stable, Rationale: Pt completed detox at [facility] on 01-23-2014 1 Dimension 2 Severity Rating (Biomedical Conditions and Complications): Mild, Rationale: Cerebral artery occlusion with erebral infraction 1 Dimension 3 Severity Rating (Emotional, Behavioral, or Cognitive Conditions and Complications): Mild, Rationale: mild AX sx reported 2 Dimension 4 Severity Rating (Readiness to Change): Moderate, Rationale: Pt has hx of treatment and relapse wants MAT and is will to due IOP 2 Dimension 5 Severity Rating (Relapse, Continued Use, or Continued Problem Potential): Moderate, Rationale: 28 yr hx of alcohol abuse w/treatment and relapse 0 Dimension 6 Severity Rating (Recovery/Living Environment): No Risk/Stable, Rationale: lives with his . Needs, Strengths, Preferences, and Goals (short & long-term personal goals) Needs: Strengths: Motivation level for treatment, Stable housing, Support from family Preferences: Evenings Goals Improve quality of life by maintaining ongoing abstinence from all mood-altering substances Go to school, eat healthier, support my family better and remain sober. Mental Status Exam General Observations Appearance: Neatly groomed Demeanor: Spontaneous Activity: Unremarkable Speech: Logical/coherent Eye Contact: Fair Mood & Affect Mood: Euthymic Affect: Appropriate Behavior Behavior: Cooperative Cognition Orientation Level: Oriented X4 Level of Consciousness: Alert Thought Processes: Logical Thought Content: Unremarkable Delusions: Perceptions: Not altered Memory Tested: No Memory Disturbance: No Attention Deficit: No Judgment: Unable to assess Insight: Unimpaired Suicide Risk Assessment Suicide Risk Assessment (Assess lethality if SI present) Ideation: None reported or observed Intent: None reported or observed Plan: None reported or observed Self abusive behaviors: None reported or observed Assessed Level of Suicide Risk Suicidal Ideation 1. Wish to be (Lifetime): No 2. Non-Specific Active Suicidal Thoughts (Lifetime): No Suicidal Behavior Actual Attempt (Lifetime): No Has subject engaged in non-suicidal self-injurious behavior? (Lifetime): No Interrupted Attempts (Lifetime): No Aborted or Self-Interrupted Attempt (Lifetime): No Preparatory Acts or Behavior (Lifetime): No C-SSRS Risk (Lifetime/Recent) Calculated C-SSRS Risk Score (Lifetime/Recent): No Risk Indicated Suicidal and Self-Injurious Behavior Actual Attempt (Lifetime): No Interrupted Attempts (Lifetime): No Aborted or Self-Interrupted Attempt (Lifetime): No Preparatory Acts or Behavior (Lifetime): No Has subject engaged in non-suicidal self-injurious behavior? (Lifetime): No Rationale for Risk Level (Narrative to include description of ALL FOUR of the following: historical and current suicidal ideation, suicidal behaviors, non-suicidal self-harming behaviors, and protective factors that support the level of suicide-risk selected. Rationale to include comment on each endorsed item on C-SSRS as well as clarification re: any baseline and/or significant changes in thoughts and behaviors related to suicide risk): Pt denies any prior or current SI/SA or self harm behaviors. Pt reports support from family as protective factors. Resources/Interventions Provided N/a Homicide/Aggressive Behavior Risk Assessment Does patient have any current/history of homicidal ideation? (Explain: identify any history of ideation, intent, plan and/or actual homicidal behaviors) History: No Current: No Does patient have any history of aggressive behavior/threats towards others that does not include homicidal intent? History: No Current: No Comments Re: Significant MSE Findings n/a Recommended Level of Care 2.1 Intensive Outpatient Services Level of Care Placed 2.1 Intensive Outpatient Services Patient's Response to Recommendations agreeable Diagnostic Impression (F10.20) Severe alcohol use disorder (HCC) Narrative Summary & Justification for Level of Care Pt presents for assessment after release from detox for alcohol. Pt reports that he started drinking in his teen years and identified age 22 as when he became an alcoholic. Pt reports treatment in the form of IOP in the past. Pt states that he tried AA but that it was not for him. Pt reports that he was drinking 7-8 tall boys daily prior to detox. Pt reports that he is currently unemployed but has a job interview on 01-29-2024. Pt denies any SI/SA or self harm behaviors. Pt denies any hallucinations or delusions and was orientated x4. Pt reports that he is motivated for treatment because he wants the Vivitrol shot. Pt scheduled for Evening CD-IOP with a start date of 02-03-2024 Linked Episodes Type: Episode: Status: Noted: Resolved: Last update: Updated by: Behavioral Health - Addiction IOP Behavioral Health - Addiction IOP - October 2023 Active 11/29/2023 01/28/2024 3:20 PM Obstetrics Physician Template Comments:Episode created by system 11/29/2023 1:54 PM PABLO Paul documented in this encounter [facility] 01-24-2024 Nurse Note Patient discharging home. Patient received vivitriol injection tolerated well. Patient given medication alert bracelet. Patient medications reviewed and appointments. Patient sent with written instructions and belongings. Patient picking up in [place]. [facility] 01-24-2024 Nurse Note Patient discharging home. Patient received vivitriol injection tolerated well. Patient given medication alert bracelet. Patient medications reviewed and appointments. Patient sent with written instructions and belongings. Patient picking up in lobby. Patient up, social with peers with appropriate behavior. Patient takes medication with ease. Patient encouraged to make needs known. 0915: Pt social in [place]. Pt has attended groups. Pt A&O x4. Pt denies SI/HI/AVH. Pt compliant with medications. Pt eating and taking fluids well. Pt up and gait steady. Pt allowed to wear his own shoes. Pt is pleasant and cooperative. Pt encouraged to notify staff with concerns. Patient is up and steady, seen in group room socializing. Pt is cooperative and med compliant. Pt denies SI/HI/AVH. Pt encouraged to notify staff for any questions and concerns. Patient sitting in day lyn upon RN approach. Patient compliant with taking AM medications. Patient denies suicidal ideation, self harm, homicidal ideation, visual hallucinations, auditory hallucinations and pain. Patient pleasant throughout exam. Patient educated on plan of care and to seek staff with concerns. Patient verbalizes understanding. Patient is up and steady, seen in group room. Pt is cooperative and med compliant. Pt is encouraged to notify staff for any questions and concerns. Patient received PRN albuterol inhaler as per orders at 1112 for . Patient received PRN respiratory TX from RT at 0915 with good results. 02 93 percent with no O2 Pt arrived from [facility] ED via cart with squad and security, skin check completed upon arrival to the unit. Pt oriented to room and unit, pt here states 3 months ago, pt states he remained sober for about 2 weeks and feels his trigger is the fact that his daughter lives with them and drinks and smokes marijuana, pt states they are going to tell her she can't stay at the house any longer. Pt endorses drinking 6-8 beers (8%) daily, denies any other drug use. Pt states he wants to follow through with IOP this time and wants this to be his last time here. Pt alert and oriented, med compliant, pt states slept well through the night, pt denies SI/HI/AVH, V&D. Pt encouraged to update staff with any change in condition. Will monitor pt for safety. documented in this encounter [facility] 01-24-2024 Note [facility] 01-24-2024 Hospital course Narrative Addiction Medicine Detox Unit Discharge Summary Patient: Maria De Jesus Hogan : 1965 Primary Care Physician: Lynda Rasheed MD Admit Date: 01/20/2024 Discharge Date: 01/24/2024 Admitting Physician: Luis Branch MD Discharge Physician: Jonatan Mckeon MD. Reason for Admission: Please see initial admission H&P written on 01/21/2024. Discharge Diagnoses Active Problems: Severe alcohol use disorder (HCC) Detoxification Course Patient was admitted to the detox unit and started on phenobarbital. The dose was tapered according to his clinical signs and symptoms. Patient was given prn medications as well as thiamine and folic acid. Patient was monitored with the CIWA scale. Patient was given Vivitrol injection. It was well tolerated. On the day of discharge patient was denying residual symptoms of withdrawal. he denies any paranoia, auditory or visual hallucinations. Denied SI/HI. Patient maintained forward thinking and was motivated to continue his sobriety. Patient was compliant with the rules and regulations of the unit and was appropriate with staff and peers. folic acid, 1 mg, Oral, Daily gabapentin, 600 mg, Oral, TID melatonin, 5 mg, Oral, Nightly naltrexone, 50 mg, Oral, Dinner naltrexone ER, 380 mg, IntraMUSCular, Once nicotine, 1 patch, TransDERmal, Daily pantoprazole, 40 mg, Oral, qAM AC PHENobarbital, 32.4 mg, Oral, Q4H thiamine, 100 mg, Oral, Daily PRN medications: albuterol, bisacodyl, busPIRone, doxepin, ibuprofen, ipratropium-albuterol, methocarbamol, nicotine polacrilex, nicotine polacrilex, ondansetron ODT OR ondansetron, polyethylene glycol (PEG) 3350, sodium chloride 0.9%, traZODone Discharge Physical Exam: Vitals: 01/23/24 1717 01/24/24 0032 01/24/24 0550 01/24/24 0816 BP: 146/98 130/90 138/95 121/91 BP Location: Left arm Left arm Patient Position: Sitting Sitting Pulse: 109 101 103 94 Resp: 17 20 20 18 Temp: 36.2 C (97.2 F) 36.2 C (97.2 F) 36.7 C (98.1 F) 36.3 C (97.4 F) TempSrc: Temporal Temporal Oral Temporal SpO2: 97% 95% 97% 98% Weight: Height: Physical Exam Vitals and nursing note reviewed. Constitutional: Appearance: He is not diaphoretic. Eyes: General: No scleral icterus. Cardiovascular: Rate and Rhythm: Normal rate. Pulmonary: Effort: Pulmonary effort is normal. Musculoskeletal: General: Normal range of motion. Skin: General: Skin is warm and dry. Neurological: Mental Status: He is alert and oriented to person, place, and time. Gait: Gait is intact. Psychiatric: Mood and Affect: Mood normal. Behavior: Behavior normal. Thought Content: Thought content normal. Judgment: Judgment normal. Labs: Results for orders placed or performed during the hospital encounter of 01/20/24 CBC auto differential Collection Time: 01/20/24 5:49 PM Result Value Ref Range Auto WBC 4.2 3.6 - 10.7 10*3/uL RBC 4.88 4.40 - 5.90 10*6/uL Hemoglobin 16.1 13.0 - 18.0 g/dL Hematocrit 46.0 40.0 - 52.0 % MCV 94.3 77.0 - 99.0 fL MCH 33.0 26.0 - 34.0 pg MCHC 35.0 30.5 - 36.0 % RDW 14.1 11.5 - 15.0 % Platelets 156 140 - 440 10*3/uL MPV 8.8 (L) 9.0 - 12.7 fL nRBC 0.0 0.0 - 2.0 /100 WBCs Neutrophils Relative 53.2 38.0 - 82.0 % Lymphocytes Relative 30.6 15.0 - 45.0 % Monocytes Relative 14.2 (H) 5.0 - 13.0 % Eosinophils Relative 1.0 0.0 - 6.0 % Basophils Relative 0.5 0.0 - 2.0 % Immature Grans % 0.5 0.0 - 2.0 % Neutrophils Absolute 2.2 1.8 - 7.5 10*3/uL Lymphocytes Absolute 1.3 1.0 - 4.3 10*3/uL Monocytes Absolute 0.6 0.0 - 0.9 10*3/uL Eosinophils Absolute 0.0 0.0 - 0.5 10*3/uL Basophils Absolute 0.0 0.0 - 0.2 10*3/uL Immature Grans Absolute 0.0 <0.1 10*3/uL Comprehensive metabolic panel Collection Time: 01/20/24 5:49 PM Result Value Ref Range SODIUM 134 (L) 135 - 145 mmol/L POTASSIUM 4.1 3.5 - 5.1 mmol/L CHLORIDE 93 (L) 98 - 107 mmol/L CARBON DIOXIDE 26 22 - 30 mmol/L ANION GAP 15 (H) 3 - 13 mmol/L UREA NITROGEN 7 (L) 9 - 20 mg/dL CREATININE 0.59 (L) 0.66 - 1.25 mg/dL GLUCOSE 174 (H) 70 - 100 mg/dL CALCIUM 8.2 (L) 8.4 - 10.4 mg/dL AST (SGOT) 102 (H) 15 - 46 U/L ALT 106 (H) 0 - 49 U/L ALKALINE PHOSPHATASE 100 38 - 126 U/L ALBUMIN 4.3 3.5 - 5.0 g/dL BILIRUBIN, TOTAL 0.5 0.2 - 1.3 mg/dL TOTAL PROTEIN 7.3 6.3 - 8.2 g/dL eGFR >90.0 >60.0 mL/min/1.73m*2 Ethanol Collection Time: 01/20/24 5:49 PM Result Value Ref Range ETHANOL IN SER/PLAS 0.435 (HH) 0.000 - 0.010 g/dL ECG 12 lead Collection Time: 01/20/24 5:54 PM Result Value Ref Range Heart Rate 95 bpm QRSD Interval 97 ms QT Interval 367 ms QTC Interval 460 ms P [place] 50 degrees QRS [place] 55 degrees T Wave [place] 51 degrees [place] Interval 166 ms SARS-CoV-2 Antigen Collection Time: 01/20/24 6:02 PM Specimen: Nasal; Swab Result Value Ref Range SARS-CoV-2 Antigen Negative Negative Drug screen panel, emergency Collection Time: 01/20/24 6:05 PM Result Value Ref Range AMPHETAMINE SCREEN Negative BARBITURATES SCREEN Negative BENZODIAZEPINE SCREEN Negative COCAINE METAB. SCREEN Negative METHADONE SCREEN Negative OPIATES SCREEN Negative OXYCODONE SCREEN Negative PHENCYCLIDINE SCREEN Negative Comprehensive metabolic panel Collection Time: 01/22/24 10:32 AM Result Value Ref Range SODIUM 130 (L) 135 - 145 mmol/L POTASSIUM 4.0 3.5 - 5.1 mmol/L CHLORIDE 96 (L) 98 - 107 mmol/L CARBON DIOXIDE 29 22 - 30 mmol/L ANION GAP 5 3 - 13 mmol/L UREA NITROGEN 7 (L) 9 - 20 mg/dL CREATININE 0.61 (L) 0.66 - 1.25 mg/dL GLUCOSE 98 70 - 100 mg/dL CALCIUM 8.9 8.4 - 10.4 mg/dL AST (SGOT) 58 (H) 15 - 46 U/L ALT 75 (H) 0 - 49 U/L ALKALINE PHOSPHATASE 77 38 - 126 U/L ALBUMIN 3.9 3.5 - 5.0 g/dL BILIRUBIN, TOTAL 0.7 0.2 - 1.3 mg/dL TOTAL PROTEIN 6.6 6.3 - 8.2 g/dL eGFR >90.0 >60.0 mL/min/1.73m*2 Discharge Medication List Medication List START taking these medications gabapentin 300 MG capsule; Commonly known as: Neurontin; Take 2 capsules (600 mg) by mouth 3 times daily.; Replaces: gabapentin 600 MG tablet CONTINUE taking these medications albuterol 108 (90 Base) MCG/ACT inhaler; Inhale 2 puffs every 6 hours as needed for wheezing or shortness of breath. calcipotriene 0.005 % cream; Commonly known as: Dovonex; Apply topically 2 times daily. melatonin 5 MG tablet; Take 1 tablet (5 mg) by mouth Nightly. Multiple Vitamins tablet; Take 1 tablet by mouth daily. naltrexone ER injection; Commonly known as: Vivitrol; Inject 4 mL (380 mg) into the buttocks Once for 1 dose. nicotine 14 MG/24HR patch; Commonly known as: Nicoderm, Step 2; Place 1 patch on the skin daily. Do not start before October 23, 2022. pantoprazole 40 MG EC tablet; Commonly known as: ProtoNix; Take 1 tablet (40 mg) by mouth every morning (before breakfast). Thiamine Mononitrate 100 MG tablet; Commonly known as: Vitamin B1; Take 1 tablet (100 mg) by mouth daily. STOP taking these medications acamprosate 333 MG EC tablet; Commonly known as: Campral gabapentin 600 MG tablet; Commonly known as: Neurontin; Replaced by: gabapentin 300 MG capsule Discharge Instructions Instructions given to pursue chemical dependency treatment at: [facility] [address] [id number] Go on 01/28/2024 at 1:30pm with Ammon for intake assessment for Intensive Outpatient Program and addiction medicine follow up. JUAN Delgado CNP [address] [place] [id number] Go on 02/12/2024 at 2 PM for MAT/Vivitrol follow-up.. The patient was also instructed to: 1. Attend AA/NA meetings or a similar 12-step program daily including day of discharge if possible. 2. Abstain from any mind or mood altering substances that are not prescribed. 3. Follow up with their primary care doctor and/or psychiatrist within 1-2 weeks. JEAN[facility]PIERRE [facility] 01/24/2024 at 11:17 AM I spent a total time >40 minutes counseling and coordinating care regarding patient's chemical dependency status. Note: Narrative portions of note written using [employer] dictation software. Efforts are made to dictate clearly and proofread but errors in dictation still may occur. Please reach out to author with any clarifying questions. Cosigned by Jonatan Mckeon MD at 01/24/2024 2:57 PM EDT Images from the original note were not included. ADDICTION MEDICINE 4E DETOX UNIT DISCHARGE SUMMARY Patient MRN Maria De Jesus Hogan [id number] 1965 Admit Date Discharge Date 01/20/2024 01/24/2024 Primary Care Physician Lynda Rasheed MD Admitting Physician Luis Branch MD Consultants None. Reason for Admission Maria De Jesus Hogan is a 58 y.o. year old male with a PMH of AUD, TUD, BPH and Lombardo's esophagus who that was admitted for mgmt of alcohol WD. On approach, Maria De Jesus Hogan is seen lying in hospital room stating I don't really want to talk, I'd like to sleep. Engages limitedly in brief conversation. States he is drinking 12 24ox beers (8%) daily, denies any other drug use. Did reports infrequent cannabis use to ED. Limited sober time since ADM last saw him in October on consults at [place]. States he wants to follow through with IOP this time. On admission, a urine drug screen was negative, and a serum alcohol level was 0.435. DISCHARGE DIAGNOSIS Active Problems Active Problems: Severe alcohol use disorder (HCC) Resolved Problems Alcohol withdrawal with inpatient treatment without complication (HCC) Body mass index is 32.08 kg/m . DETOXIFICATION COURSE Detoxed with PNB and prn medications for alcohol withdrawal symptoms. Was restarted on home medication including GBP 600mg TID for neuropathy and naltrexone as pt voiced interest in restarting Vivitrol. Ultimately he tolerated medication well and on day of discharge denied any symptoms of withdrawal. He were motivated to attend IOP to aid in maintaining sobriety. He was given 380 mg IM Vivitrol in R gluteal muscle on 01/23 before discharge. He was also given gabapentin rx bridge rx before discharge. Unclear if his prescriber will continue prescribing this for neuropathy given AUD. Vitals height is 1.803 m (5' 11) and weight is 104 kg (230 lb). His temporal temperature is 36.3 C (97.4 F). His blood pressure is 121/91 and his pulse is 94. His respiration is 18 and oxygen saturation is 98%. Physical Exam Constitutional: Appearance: Normal appearance. HENT: Mouth/Throat: Mouth: Mucous membranes are moist. Eyes: Extraocular Movements: Extraocular movements intact. Cardiovascular: Rate and Rhythm: Normal rate. Pulmonary: Effort: Pulmonary effort is normal. Abdominal: Palpations: Abdomen is soft. Musculoskeletal: General: Normal range of motion. Cervical back: Normal range of motion. Skin: General: Skin is warm. Neurological: General: No focal deficit present. Mental Status: He is alert and oriented to person, place, and time. Labs Results for orders placed or performed during the hospital encounter of 01/20/24 CBC auto differential Collection Time: 01/20/24 5:49 PM Result Value Ref Range Auto WBC 4.2 3.6 - 10.7 10*3/uL RBC 4.88 4.40 - 5.90 10*6/uL Hemoglobin 16.1 13.0 - 18.0 g/dL Hematocrit 46.0 40.0 - 52.0 % MCV 94.3 77.0 - 99.0 fL MCH 33.0 26.0 - 34.0 pg MCHC 35.0 30.5 - 36.0 % RDW 14.1 11.5 - 15.0 % Platelets 156 140 - 440 10*3/uL MPV 8.8 (L) 9.0 - 12.7 fL nRBC 0.0 0.0 - 2.0 /100 WBCs Neutrophils Relative 53.2 38.0 - 82.0 % Lymphocytes Relative 30.6 15.0 - 45.0 % Monocytes Relative 14.2 (H) 5.0 - 13.0 % Eosinophils Relative 1.0 0.0 - 6.0 % Basophils Relative 0.5 0.0 - 2.0 % Immature Grans % 0.5 0.0 - 2.0 % Neutrophils Absolute 2.2 1.8 - 7.5 10*3/uL Lymphocytes Absolute 1.3 1.0 - 4.3 10*3/uL Monocytes Absolute 0.6 0.0 - 0.9 10*3/uL Eosinophils Absolute 0.0 0.0 - 0.5 10*3/uL Basophils Absolute 0.0 0.0 - 0.2 10*3/uL Immature Grans Absolute 0.0 <0.1 10*3/uL Comprehensive metabolic panel Collection Time: 01/20/24 5:49 PM Result Value Ref Range SODIUM 134 (L) 135 - 145 mmol/L POTASSIUM 4.1 3.5 - 5.1 mmol/L CHLORIDE 93 (L) 98 - 107 mmol/L CARBON DIOXIDE 26 22 - 30 mmol/L ANION GAP 15 (H) 3 - 13 mmol/L UREA NITROGEN 7 (L) 9 - 20 mg/dL CREATININE 0.59 (L) 0.66 - 1.25 mg/dL GLUCOSE 174 (H) 70 - 100 mg/dL CALCIUM 8.2 (L) 8.4 - 10.4 mg/dL AST (SGOT) 102 (H) 15 - 46 U/L ALT 106 (H) 0 - 49 U/L ALKALINE PHOSPHATASE 100 38 - 126 U/L ALBUMIN 4.3 3.5 - 5.0 g/dL BILIRUBIN, TOTAL 0.5 0.2 - 1.3 mg/dL TOTAL PROTEIN 7.3 6.3 - 8.2 g/dL eGFR >90.0 >60.0 mL/min/1.73m*2 Ethanol Collection Time: 01/20/24 5:49 PM Result Value Ref Range ETHANOL IN SER/PLAS 0.435 (HH) 0.000 - 0.010 g/dL ECG 12 lead Collection Time: 01/20/24 5:54 PM Result Value Ref Range Heart Rate 95 bpm QRSD Interval 97 ms QT Interval 367 ms QTC Interval 460 ms P [place] 50 degrees QRS [place] 55 degrees T Wave [place] 51 degrees VA Interval 166 ms SARS-CoV-2 Antigen Collection Time: 01/20/24 6:02 PM Specimen: Nasal; Swab Result Value Ref Range SARS-CoV-2 Antigen Negative Negative Drug screen panel, emergency Collection Time: 01/20/24 6:05 PM Result Value Ref Range AMPHETAMINE SCREEN Negative BARBITURATES SCREEN Negative BENZODIAZEPINE SCREEN Negative COCAINE METAB. SCREEN Negative METHADONE SCREEN Negative OPIATES SCREEN Negative OXYCODONE SCREEN Negative PHENCYCLIDINE SCREEN Negative Comprehensive metabolic panel Collection Time: 01/22/24 10:32 AM Result Value Ref Range SODIUM 130 (L) 135 - 145 mmol/L POTASSIUM 4.0 3.5 - 5.1 mmol/L CHLORIDE 96 (L) 98 - 107 mmol/L CARBON DIOXIDE 29 22 - 30 mmol/L ANION GAP 5 3 - 13 mmol/L UREA NITROGEN 7 (L) 9 - 20 mg/dL CREATININE 0.61 (L) 0.66 - 1.25 mg/dL GLUCOSE 98 70 - 100 mg/dL CALCIUM 8.9 8.4 - 10.4 mg/dL AST (SGOT) 58 (H) 15 - 46 U/L ALT 75 (H) 0 - 49 U/L ALKALINE PHOSPHATASE 77 38 - 126 U/L ALBUMIN 3.9 3.5 - 5.0 g/dL BILIRUBIN, TOTAL 0.7 0.2 - 1.3 mg/dL TOTAL PROTEIN 6.6 6.3 - 8.2 g/dL eGFR >90.0 >60.0 mL/min/1.73m*2 Imaging ECG 12 lead Result Date: 01/20/2024 Sinus rhythm Consider anterior infarct Electronically Signed On 01-20-2024 19:55:10 EDT by Triston Abraham Scheduled Inpatient Meds folic acid, 1 mg, Oral, Daily gabapentin, 600 mg, Oral, TID melatonin, 5 mg, Oral, Nightly naltrexone, 50 mg, Oral, Dinner [START ON 01/24/2024] naltrexone ER, 380 mg, IntraMUSCular, Once nicotine, 1 patch, TransDERmal, Daily pantoprazole, 40 mg, Oral, qAM AC PHENobarbital, 32.4 mg, Oral, Q4H thiamine, 100 mg, Oral, Daily PRN Inpatient Meds PRN medications: albuterol, bisacodyl, busPIRone, doxepin, ibuprofen, ipratropium-albuterol, methocarbamol, nicotine polacrilex, nicotine polacrilex, ondansetron ODT OR ondansetron, polyethylene glycol (PEG) 3350, sodium chloride 0.9%, traZODone DISCHARGE INSTRUCTIONS Activity activity as tolerated. Disposition Home. Medication List START taking these medications gabapentin 300 MG capsule Commonly known as: Neurontin Take 2 capsules (600 mg) by mouth 3 times daily. Replaces: gabapentin 600 MG tablet CONTINUE taking these medications albuterol 108 (90 Base) MCG/ACT inhaler Inhale 2 puffs every 6 hours as needed for wheezing or shortness of breath. calcipotriene 0.005 % cream Commonly known as: Dovonex Apply topically 2 times daily. melatonin 5 MG tablet Take 1 tablet (5 mg) by mouth Nightly. Multiple Vitamins tablet Take 1 tablet by mouth daily. naltrexone ER injection Commonly known as: Vivitrol Inject 4 mL (380 mg) into the buttocks Once for 1 dose. nicotine 14 MG/24HR patch Commonly known as: Nicoderm, Step 2 Place 1 patch on the skin daily. Do not start before October 23, 2022. pantoprazole 40 MG EC tablet Commonly known as: ProtoNix Take 1 tablet (40 mg) by mouth every morning (before breakfast). Thiamine Mononitrate 100 MG tablet Commonly known as: Vitamin B1 Take 1 tablet (100 mg) by mouth daily. STOP taking these medications acamprosate 333 MG EC tablet Commonly known as: Campral gabapentin 600 MG tablet Commonly known as: Neurontin Replaced by: gabapentin 300 MG capsule Where to Get Your Medications These medications were sent to [facility] [address] [place] [address] [place] [id number] [facility] [id number] gabapentin 300 MG capsule Follow Up [facility] [address] [place] [phone] Go on 01/28/2024 at 1:30pm with Ammon for intake assessment for Intensive Outpatient Program and addiction medicine follow up. JUAN Delgado CNP [address] [place] [id number] Go on 02/12/2024 at 2 PM for MAT/Vivitrol follow-up. Future Appointments Date Time Provider Department Center 01/28/2024 1:30 PM Ammon Abdul [facility] ADD IOP None 02/12/2024 2:00 PM JUAN Delgado CNP [facility] ACD- None The patient was also instructed to: Attend AA/NA meetings or a similar 12-step program. Abstain from any mind or mood altering substances that are not prescribed. Follow up with their primary care doctor and/or psychiatrist as soon as possible. Pending studies or issues to follow up with: Continue Vivitrol for MAT with RESPIRATORY SUPPORT TECHNICIAN Robyn. Complete CD IOP. Have Pcp evaluate liver health. This discharge summary was completed with the aid of the fellow: Soraida Caldwell MD electronically signed Time Spent on Discharge Summary: > 30 mins documented in this encounter [facility] 01-24-2024 Note [facility] 01-24-2024 Note Formatting of this n ote might be different from the original. UNIVERSITY ARCHIVIST saw patient to discuss aftercare plans and treatment post discharge. Patient was reminded about appointments. Patient has IOP assessment with [facility] on 01/28/2024 at 1:30 PM. Patient has MAT follow-up with nurse practitioner Feli on 02/12/2024 at 2 PM. All information included in patient's discharge paperwork. Patient denied current SI/HI/AVH. Patient reported that their would be picking them up from the hospital and taking them back home. Patient denied needing anything further from UNIVERSITY ARCHIVIST at the time. UNIVERSITY ARCHIVIST informed patient's nurse about conversation. [facility] 01-24-2024 Note Formatting of this n ote might be different from the original. UNIVERSITY ARCHIVIST saw patient to discuss aftercare plans and treatment post discharge. Patient was reminded about appointments. Patient has IOP assessment with Lai on 01/28/2024 at 1:30 PM. Patient has MAT follow-up with nurse practitioner Feli on 02/12/2024 at 2 PM. All information included in patient's discharge paperwork. Patient denied current SI/HI/AVH. Patient reported that their would be picking them up from the hospital and taking them back home. Patient denied needing anything further from UNIVERSITY ARCHIVIST at the time. UNIVERSITY ARCHIVIST informed patient's nurse about conversation. [facility] 01-24-2024 Miscellaneous Notes UNIVERSITY ARCHIVIST saw patient to discuss aftercare plans and treatment post discharge. Patient was reminded about appointments. Patient has IOP assessment with Lai on 01/28/2024 at 1:30 PM. Patient has MAT follow-up with nurse practitioner Feli on 02/12/2024 at 2 PM. All information included in patient's discharge paperwork. Patient denied current SI/HI/AVH. Patient reported that their would be picking them up from the hospital and taking them back home. Patient denied needing anything further from [facility] at the time. UNIVERSITY ARCHIVIST informed patient's nurse about conversation. Problem: Potential for Substance Withdrawal Goal: Verbalizes signs/symptoms of withdrawal 01/24/2024604 by Yasemin Abdul RN Outcome: Progressing 01/23/[id number] by Yasemin Abdul RN Outcome: Progressing Goal: Reports signs/symptoms of withdrawal 01/24/2024 06 by Yasemin Abdul RN Outcome: Progressing 01/23/[id number] by Yasemin Abdul RN Outcome: Progressing Goal: Free of withdrawal symptoms 01/24/2024 06 by Yasemin Abdul RN Outcome: Progressing 01/23/[id number] by Yasemin Abdul RN Outcome: Progressing Problem: Drug Abuse/Detox Goal: Will have no detox symptoms and will verbalize plan for changing drug-related behavior 01/24/2024 06 by Yasemin Abdul RN Outcome: Progressing 01/23/[id number] by Yasemin Abdul RN Outcome: Progressing Problem: Safety - Adult Goal: Free from fall injury 01/24/2024 06 by Yasemin Abdul RN Outcome: Progressing 01/23/[id number] by Yasemin Abdul RN Outcome: Progressing Problem: Discharge Planning Goal: Discharge to home or other facility with appropriate resources 01/24/2024 0605 by Yasemin Abdul RN Outcome: Progressing 01/23/2024 2200 by Yasemin Abdul RN Outcome: Progressing Problem: Potential for Substance Withdrawal Goal: Verbalizes signs/symptoms of withdrawal Outcome: Progressing Goal: Reports signs/symptoms of withdrawal Outcome: Progressing Goal: Free of withdrawal symptoms Outcome: Progressing Problem: Drug Abuse/Detox Goal: Will have no detox symptoms and will verbalize plan for changing drug-related behavior Outcome: Progressing Problem: Safety - Adult Goal: Free from fall injury Outcome: Progressing Problem: Discharge Planning Goal: Discharge to home or other facility with appropriate resources Outcome: Progressing Problem: Potential for Substance Withdrawal Goal: Verbalizes signs/symptoms of withdrawal Outcome: Progressing Goal: Reports signs/symptoms of withdrawal Outcome: Progressing Goal: Free of withdrawal symptoms Outcome: Progressing Patient interested in IOP and MAT. Patient scheduled for [facility] on 01/28/2024 at 1:30 PM. Patient scheduled for MAT with nurse practitioner Feli on 02/12/2024 at 2 PM. All information included in patient's discharge paperwork. Department: [facility] Group Topic: Recreation Therapy Group Date: 01/22/2024 Start Time: 1035 End Time: 1110 Facilitators: Aurora Camarena Number of Participants: 6 Group Name: Recreation Therapy Treatment Modality: Recreation Therapy Purpose: enhance coping skills and support humor, reconnect to leisure Summary: Collaborative Art - To allow patients the opportunity to utilize collaborative skills through art, as well as, support relaxation and humor. Name: Maria De Jesus Chika Hogan Date of : 1965 MR: [id number] Appearance: Good eye contact Affect: Appropriate Behavior: Pleasant Alertness: Alert Speech: Appropriate Level/Quality of Participation: engaged Interactions with others: pleasant and supportive Interventions utilized were Building rapport and engagement and Expressive therapy Patient's Response to Intervention: Patient engaged fully in art task by working with peers to complete each challenge. Patient was observed laughing and interacting with peers during the group. Patient was active in discussion related to decreasing barriers, as well as, future interests. Continue to encourage group participation as appropriate. 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) Alcohol withdrawal with inpatient treatment without complication (HCC) Problem: Potential for Substance Withdrawal Goal: Reports signs/symptoms of withdrawal Outcome: Progressing Problem: Drug Abuse/Detox Goal: Will have no detox symptoms and will verbalize plan for changing drug-related behavior Outcome: Progressing Problem: Potential for Substance Withdrawal Goal: Verbalizes signs/symptoms of withdrawal Outcome: Progressing Goal: Reports signs/symptoms of withdrawal Outcome: Progressing Goal: Free of withdrawal symptoms Outcome: Progressing Problem: Potential for Substance Withdrawal Goal: Verbalizes signs/symptoms of withdrawal Outcome: Progressing Goal: Reports signs/symptoms of withdrawal Outcome: Progressing Goal: Free of withdrawal symptoms Outcome: Progressing Behavioral Health Psycho-Social Assessment (Social Work) Date: 01/21/2024 Patient Name: Maria De Jesus Hogan : 1965 Identifying Information: Patient is a 58-year-old male mended to ED for for detox from alcohol. Patient is known to addiction medicine team as he is previously on unit on 07/27/2023. Patient was then seen again on the medical floor on 11/27/2023. Patient has been unable to maintain sobriety since discharge from the hospital. Presenting Problem: Patient presented to the ED on 01/20/2024 requesting detox of alcohol. Reports last drink was just prior to arrival in the ED. Reports last detox was 3 months ago. Has a mechanical fall from 2 days ago. Denies hitting his head. Psychiatric History: Patient has mental health diagnosis depression anxiety. Patient denies being on any medication for mental health needs. Patient has previous engagement with outpatient mental health providers but denies any current treatment. Patient has history of psychiatric admission. Reports admissions were due to suicidal ideation while intoxicated. Denies history of recent or past suicide attempts. Patient denies current SI/HI/AVH. Patient does have an extensive history of passive SI secondary to intoxication. Patient denies plan, intent, or method but reports more increased feelings of depression and sadness. Patient denies recent or past history of SIB. Substance Abuse/Use: Patient reports that he is currently drinking upwards of 9, 24 ounce Natty Daddy beers daily. Patient reports his last drink was 01/20/2024. Patient labs are positive for alcohol (0.435) and barbitutaes. Patient first drank alcohol when he was 15/16 years old. Patient reports that his use was regular in his 20s, and problematic 12 years ago. He cannot identify a trigger to his problematic use, other than, I like beer . He drinks the point of intoxication, blackouts, and vomiting. He denies history of withdrawal seizure, alcohol overdoses, or DTs. Patient does have extensive history of falls while intoxicated. Patient reports previous history of engagement with AA as well as IOP. Patient denies any history of MAT engagement. Patient reports his longest period of sobriety was 6 months. Patient reports however after leaving the unit during his previous admission he relapsed almost immediately. Patient has previous history of detox occurring on 07/27/2023, 07/08/2023, 02/08/2023, 05/20/2023 (medical), 10/25/2021, 02/15/2021 (left AMA), 06/09/20, 10/01/19, 08/31/19 (left AMA), 2017 (left AMA), and 2014 (left AMA). He denies history of residential treatment Medical/Self-care Issues: Patient has medical issues such as COPD, Lombardo's esophagus, macrocytosis, and HTN. Patient has ongoing struggles with self-care secondary to substance use disorder. Patient is increased in both frequency and tolerance over time. Patient also report struggling to recover from the effects of his substance use. Patient reports experiencing poor nutrition and sleep secondary to his substance use. Legal/Trauma/ History: Patient denies any current legal issues. Patient reports past legal history of child support violations. Patient denies any history of childhood abuse. Patient does report however his father when he was 11 years old which was a traumatic incident to him. Patient denies any history of trauma abuse as an adult. Patient denies any history [place] or status. Family Constellation/Childhood History: Patient reports that he is currently to his living in [facility]. Patient reports that he has 3 biological children and 4 stepchildren. Patient reports that his father in his 11 years old. Patient did not report his mother is still alive currently. Patient was born and raised in [place], [place] by his mother and father. He reports that his father when he was 11 years old, and this was traumatic for him. Patient reports that he was raised primarily by his mother for the remainder of his childhood. He denies childhood abuse. Education/Work: Patient reports that he graduated high school. 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 Patient denies SSI/SSD. Cultural/Spirituality/Leisure: Patient denies any cultural needs or concerns at the current time. Patient denies identify any yarsanism preference. It is unknown if patient is attending services anywhere currently. Patient reports he used to enjoy leisure activities such as golfing but has been unable to do so due to his ongoing substance use disorder. Support Systems/Collateral Information: Patient reports that his is his primary social. Patient reports that she is sober and supportive of his recovery needs and efforts. Patient reports that his is aware that he is admitted to the hospital. C-SSRS Actual Attempt (Past 3 Months): No (Patient has history of psychiatric admission. Reports admissions were due to suicidal ideation while intoxicated. Patient denies any recent history of suicide attempts) Actual Attempt (Lifetime): No (Patient denies any past history of suicide attempts) Interrupted Attempts (Past 3 Months): No (Patient denies) Interrupted Attempts (Lifetime): No (Patient denies) Aborted or Self-Interrupted Attempt (Past 3 Months): No (Patient denies) Aborted or Self-Interrupted Attempt (Lifetime): No (Patient denies) Preparatory Acts or Behavior (Past 3 Months): No (Patient denies) Preparatory Acts or Behavior (Lifetime): No (Patient denies) Has subject engaged in non-suicidal self-injurious behavior? (Past 3 Months): No (Patient denies any recent history of SIB) Has subject engaged in non-suicidal self-injurious behavior? (Lifetime): No (Patient denies any past history of SIB) Suicidal Ideation: (Patient denies current SI/HI/AVH. Patient does have an extensive history of passive SI secondary to intoxication. Patient denies plan, intent, or method but reports more increased feelings of depression and sadness.) Activating Events (Recent): Recent loss(es) or other significant negative event(s) (legal, financial, relationship, etc.) Describe:: Ongoing struggles substance use Treatment History: Previous psychiatric diagnoses and treatments, Non-compliant with treatment, Not receiving treatment (Patient has mental health diagnosis depression anxiety. Patient denies being on any medication for mental health needs. Patient has previous engagement with outpatient mental health providers but denies any current treatment.) Clinical Status (Recent): Major depressive episode, Substance abuse or dependence, Hopelessness, Agitation or severe anxiety, Highly impulsive behavior, Perceived burden on family or others (Risk factors) Protective Factors (Recent): Identifies reasons for living, Responsibility to family or others and/or living with family (Protective factors) Describe any suicidal, self-injurious or aggressive behavior (include dates): Patient has history of psychiatric admission. Reports admissions were due to suicidal ideation while intoxicated. Denies history of recent or past suicide attempts. Patient denies current SI/HI/AVH. Patient does have an extensive history of passive SI secondary to intoxication. Patient denies plan, intent, or method but reports more increased feelings of depression and sadness. Patient denies recent or past history of SIB. Patient has mental health diagnosis depression anxiety. Patient denies being on any medication for mental health needs. Patient has previous engagement with outpatient mental health providers but denies any current treatment. Plan: Plans for patient are currently unknown. Patient historically declines any aftercare treatment. Patient does not follow any treatment recommendations and provided to him. ELDER COUNSELOR will continue to work with patient in order to hopefully identify aftercare plans. Patient encouraged to engage in all activities that are offered to them while they are on the unit. Patient report needing additional current time. Patient encouraged to seek out [facility] unit staff should they identify any additional needs or concerns. Comment: Please note this report has been produced using speech recognition software and may contain errors related to that system including errors in grammar, punctuation, and spelling, as well as words and phrases that may be inappropriate. If there are any questions or concerns please feel free to contact the dictating provider for clarification. The patient is Moderately Stable - Low risk of patient condition declining or worsening The patient's goals for the shift include rest The clinical goals for the shift include comfort/safety documented in this encounter [facility] 01-24-2024 Plan of care note Problem: Potential for Substance Withdrawal Goal: Verbalizes signs/symptoms of withdrawal 01/24/2024 06 by Yasemin Abdul RN Outcome: Progressing 01/23/20242199 by Yasemin Abdul RN Outcome: Progressing Goal: Reports signs/symptoms of withdrawal 01/24/2024604 by Yasemin Abdul RN Outcome: Progressing 01/23/20242199 by Yasemin Abdul RN Outcome: Progressing Goal: Free of withdrawal symptoms 01/24/2024 06 by Yasemin Abdul RN Outcome: Progressing 01/23/20242199 by Yasemin Abdul RN Outcome: Progressing Problem: Drug Abuse/Detox Goal: Will have no detox symptoms and will verbalize plan for changing drug-related behavior 01/24/2024604 by Yasemin Abdul RN Outcome: Progressing 01/23/20242199 by Yasemin Abdul RN Outcome: Progressing Problem: Safety - Adult Goal: Free from fall injury 01/24/2024604 by Yasemin Abdul RN Outcome: Progressing 01/23/20242199 by Yasemin Abdul RN Outcome: Progressing Problem: Discharge Planning Goal: Discharge to home or other facility with appropriate resources 01/24/2024604 by Yasemin Abdul RN Outcome: Progressing 01/23/20242199 by Yasemin Abdul RN Outcome: Progressing [facility] 01-24-2024 Nurse Note Patient up, social with peers with appropriate behavior. Patient takes medication with ease. Patient encouraged to make needs known. [facility] 01-23-2024 Nurse Note 0915: Pt social in [place]. Pt has attended groups. Pt A&O x4. Pt denies SI/HI/AVH. Pt compliant with medications. Pt eating and taking fluids well. Pt up and gait steady. Pt allowed to wear his own shoes. Pt is pleasant and cooperative. Pt encouraged to notify staff with concerns. [facility] 01-23-2024 Plan of care note Problem: Potential for Substance Withdrawal Goal: Verbalizes signs/symptoms of withdrawal Outcome: Progressing Goal: Reports signs/symptoms of withdrawal Outcome: Progressing Goal: Free of withdrawal symptoms Outcome: Progressing Problem: Drug Abuse/Detox Goal: Will have no detox symptoms and will verbalize plan for changing drug-related behavior Outcome: Progressing Problem: Safety - Adult Goal: Free from fall injury Outcome: Progressing Problem: Discharge Planning Goal: Discharge to home or other facility with appropriate resources Outcome: Progressing [facility] 01-23-2024 History of Present illness Narrative Images from the original note were not included. ADDICTION MEDICINE PROGRESS NOTE Patient: Maria De Jesus Hogan Problem List: Principal Problem: Alcohol withdrawal with inpatient treatment without complication (HCC) Active Problems: Severe alcohol use disorder (HCC) SUBJECTIVE Chief Complaint Patient presents with Alcohol Problem Last 4 CIWA scores per RN assessments - Interim History Reports feeling much better today - awake and engaged, seen in day lyn and walking up and down floor Asks about GBP script at discharge and shoes on floor 05/03 to neuropathy Confirms interest in IOP and Vivitrol on day of dc Notes he has a job interview tomorrow, looking forward to mo home Review of Systems Review of Systems Constitutional: Negative for chills, diaphoresis, malaise/fatigue and night sweats. Eyes: Negative for visual disturbance. Cardiovascular: Negative for chest pain. Musculoskeletal: Negative for falls. Gastrointestinal: Negative for abdominal pain, nausea and vomiting. Neurological: Negative for headaches, light-headedness and tremors. Psychiatric/Behavioral: Negative for depression, hallucinations and suicidal ideas. The patient is not nervous/anxious. OBJECTIVE Vitals Vitals: 01/22/24 1414 01/22/24 1416 01/22/24 2250 01/23/24 0556 BP: 138/94 138/94 (!) 154/114 (!) 162/111 BP Location: Right arm Right arm Patient Position: Sitting Sitting Pulse: 111 111 109 111 Resp: 18 16 16 Temp: 36.3 C (97.4 F) 36.3 C (97.3 F) 36.3 C (97.4 F) TempSrc: Temporal Temporal Temporal SpO2: 94% 96% 95% Weight: Height: Physical Exam Constitutional: Appearance: Normal appearance. HENT: Mouth/Throat: Mouth: Mucous membranes are moist. Eyes: Extraocular Movements: Extraocular movements intact. Cardiovascular: Rate and Rhythm: Normal rate. Pulmonary: Effort: Pulmonary effort is normal. Abdominal: Palpations: Abdomen is soft. Musculoskeletal: General: Normal range of motion. Cervical back: Normal range of motion. Skin: General: Skin is warm. Neurological: General: No focal deficit present. Mental Status: He is alert and oriented to person, place, and time. Medications Home Meds Current Outpatient Medications Medication Instructions acamprosate (CAMPRAL) 333 mg, Oral, 3 times daily, Do not crush, chew, or split. albuterol 108 (90 Base) MCG/ACT inhaler 2 puffs, Inhalation, Every 6 hours PRN calcipotriene (Dovonex) 0.005 % cream Topical, 2 times daily gabapentin (NEURONTIN) 600 mg, Oral, 3 times daily melatonin 5 mg, Oral, Nightly Multiple Vitamins tablet 1 tablet, Oral, Daily naltrexone ER (VIVITROL) 380 mg, IntraMUSCular, Once nicotine (Nicoderm, Step 2) 14 MG/24HR patch 1 patch, TransDERmal, Daily pantoprazole (PROTONIX) 40 mg, Oral, Daily before breakfast Thiamine Mononitrate (VITAMIN B1) 100 mg, Oral, Daily Scheduled Inpatient Meds folic acid, 1 mg, Oral, Daily gabapentin, 600 mg, Oral, TID melatonin, 5 mg, Oral, Nightly naltrexone, 50 mg, Oral, Dinner nicotine, 1 patch, TransDERmal, Daily pantoprazole, 40 mg, Oral, qAM AC PHENobarbital, 64.8 mg, Oral, Q4H thiamine, 100 mg, Oral, Daily PRN Inpatient Meds PRN medications: albuterol, bisacodyl, busPIRone, doxepin, ibuprofen, ipratropium-albuterol, methocarbamol, nicotine polacrilex, nicotine polacrilex, ondansetron ODT OR ondansetron, polyethylene glycol (PEG) 3350, sodium chloride 0.9%, traZODone Continuous Inpatient Infusions Recent Imaging ECG 12 lead Result Date: 01/20/2024 Sinus rhythm Consider anterior infarct Electronically Signed On 01-20-2024 19:55:10 EDT by Triston Abraham Labs CBC: Recent Labs 01/20/24 1749 WBC 4.2 HGB 16.1 PLT 156 MCV 94.3 RDW 14.1 BMP: Recent Labs 01/20/24 1749 01/22/24 1032 NA 134* 130* K 4.1 4.0 CL 93* 96* CO2 26 29 BUN 7* 7* CREATININE 0.59* 0.61* CALCIUM 8.2* 8.9 Liver Profile: Recent Labs 01/20/24 1749 01/22/24 1032 AST 102* 58* ALT 106* 75* BILITOT 0.5 0.7 ALKPHOS 100 77 PROT 7.3 6.6 Glucose: Recent Labs 01/20/24 1749 01/22/24 1032 GLUCOSE 174* 98 Lactic Acid: No lab exists for component: LACTA Cardiac Injury Profile: No results for input(s): CKTOTAL, CKMB, TROPONINI in the last 72 hours. Last 24 Hours: Recent Results (from the past 24 hours) Comprehensive metabolic panel Collection Time: 01/22/24 10:32 AM Result Value Ref Range SODIUM 130 (L) 135 - 145 mmol/L POTASSIUM 4.0 3.5 - 5.1 mmol/L CHLORIDE 96 (L) 98 - 107 mmol/L CARBON DIOXIDE 29 22 - 30 mmol/L ANION GAP 5 3 - 13 mmol/L UREA NITROGEN 7 (L) 9 - 20 mg/dL CREATININE 0.61 (L) 0.66 - 1.25 mg/dL GLUCOSE 98 70 - 100 mg/dL CALCIUM 8.9 8.4 - 10.4 mg/dL AST (SGOT) 58 (H) 15 - 46 U/L ALT 75 (H) 0 - 49 U/L ALKALINE PHOSPHATASE 77 38 - 126 U/L ALBUMIN 3.9 3.5 - 5.0 g/dL BILIRUBIN, TOTAL 0.7 0.2 - 1.3 mg/dL TOTAL PROTEIN 6.6 6.3 - 8.2 g/dL eGFR >90.0 >60.0 mL/min/1.73m*2 ASSESSMENT & PLAN Alcohol use disorder, severe Nicotine use disorder Counseled patient on biopsychosocial consequences of substance use. Encouraged professional chemical dependency treatment. Encouraged 12 step meeting attendance. Follow up plans for addiction management discussed with patient: Interested in IOP and vivitrol - would prefer [facility] IOP and MAT follow up Alcohol withdrawal Nicotine withdrawal Last use of alcohol was on 01/19. PNB taper to manage alcohol withdrawal symptoms. 64 q 4 hours for today. CIWA scores per unit protocol. PRN medications for withdrawal symptom management added. Encouraged to participate in all unit activities. Thiamine and folate ordered Home GBP 600mg TID ordered NRT ordered Mild transaminitis on admission - ordered rpt CMP to check, if trending down can start PO naltrexone at dinner with plan for vivitrol at discharge Disposition: Discharge anticipated in 1 days. This is pending: Resolution of withdrawal symptoms. Medical stabilization. Labs/tests/tasks to review: None. Consultants to coordinate care with: None. This patient was staffed with Dr. Mckeon. Soraida Caldwell MD electronically signed this at 7:31 AM Cosigned by Jonatan Mckeon MD at 01/23/2024 3:32 PM EDT Associated attestation - Jonatan Mckeon MD - 01/23/2024 3:32 PM EDT I saw and evaluated the patient, participating in the laboy portions of the service. We reviewed the patient's medical record and test results. I personally spent over half of a total 35 minutes in counseling and discussion with the patient and coordination of care. This included a face to face evaluation and physical examination, and documenting clinical information on the day of visit. I have reviewed the fellow's note. I agree with the fellow s findings and plan, with any additions or corrections listed below. PNB dose lowered to 32 mg q 4 hours for today. Likely discharge tomorrow. Informed consent for naltrexone obtained. Will get 50 mg PO trial today, and IM vivitrol in AM before discharge. Nutrition rescreen completed. Chart reviewed. Patient to be monitored and followed by the diet optical laboratory technician. CORDELL Hallman Images from the original note were not included. ADDICTION MEDICINE PROGRESS NOTE Patient: Maria De Jesus Hogan Problem List: Principal Problem: Alcohol withdrawal with inpatient treatment without complication (HCC) Active Problems: Severe alcohol use disorder (HCC) SUBJECTIVE Chief Complaint Patient presents with Alcohol Problem Last 4 CIWA scores per RN assessments 2 - 6 - 4 - 4 Interim History Reports feeling much better today - awake and engaged, seen in day lyn and walking up and down floor Confirms difficulty in maintaining sobriety on own, reaffirms strong interest in going to IOP to address drinking Reports interest in vivitrol injection - states it was very helpful for the month he received it but he did not follow up to continue it, would like to receive prior to discharge if possible Review of Systems Review of Systems Constitutional: Negative for chills, diaphoresis, malaise/fatigue and night sweats. Eyes: Negative for visual disturbance. Cardiovascular: Negative for chest pain. Musculoskeletal: Negative for falls. Gastrointestinal: Negative for abdominal pain, nausea and vomiting. Neurological: Negative for headaches, light-headedness and tremors. Psychiatric/Behavioral: Negative for depression, hallucinations and suicidal ideas. The patient is not nervous/anxious. OBJECTIVE Vitals Vitals: 01/21/24 1716 01/21/24 2300 01/22/24 0533 01/22/24 0820 BP: 141/88 154/95 (!) 161/97 133/94 BP Location: Left arm Right arm Patient Position: Sitting Sitting Pulse: 119 110 108 110 Resp: 16 17 18 Temp: 36.8 C (98.3 F) 37.2 C (99 F) 36.9 C (98.4 F) TempSrc: Temporal Temporal Temporal SpO2: 92% 95% 93% Weight: Height: Physical Exam Constitutional: Appearance: Normal appearance. HENT: Mouth/Throat: Mouth: Mucous membranes are moist. Eyes: Extraocular Movements: Extraocular movements intact. Cardiovascular: Rate and Rhythm: Normal rate. Pulmonary: Effort: Pulmonary effort is normal. Abdominal: Palpations: Abdomen is soft. Musculoskeletal: General: Normal range of motion. Cervical back: Normal range of motion. Skin: General: Skin is warm. Neurological: General: No focal deficit present. Mental Status: He is alert and oriented to person, place, and time. Medications Home Meds Current Outpatient Medications Medication Instructions acamprosate (CAMPRAL) 333 mg, Oral, 3 times daily, Do not crush, chew, or split. albuterol 108 (90 Base) MCG/ACT inhaler 2 puffs, Inhalation, Every 6 hours PRN calcipotriene (Dovonex) 0.005 % cream Topical, 2 times daily gabapentin (NEURONTIN) 600 mg, Oral, 3 times daily melatonin 5 mg, Oral, Nightly Multiple Vitamins tablet 1 tablet, Oral, Daily naltrexone ER (VIVITROL) 380 mg, IntraMUSCular, Once nicotine (Nicoderm, Step 2) 14 MG/24HR patch 1 patch, TransDERmal, Daily pantoprazole (PROTONIX) 40 mg, Oral, Daily before breakfast Thiamine Mononitrate (VITAMIN B1) 100 mg, Oral, Daily Scheduled Inpatient Meds folic acid, 1 mg, Oral, Daily gabapentin, 600 mg, Oral, TID melatonin, 5 mg, Oral, Nightly nicotine, 1 patch, TransDERmal, Daily pantoprazole, 40 mg, Oral, qAM AC PHENobarbital, 97.2 mg, Oral, Q4H thiamine, 100 mg, Oral, Daily PRN Inpatient Meds PRN medications: albuterol, bisacodyl, busPIRone, doxepin, ibuprofen, ipratropium-albuterol, methocarbamol, nicotine polacrilex, nicotine polacrilex, ondansetron ODT OR ondansetron, polyethylene glycol (PEG) 3350, sodium chloride 0.9%, traZODone Continuous Inpatient Infusions Recent Imaging ECG 12 lead Result Date: 01/20/2024 Sinus rhythm Consider anterior infarct Electronically Signed On 01-20-2024 19:55:10 EDT by Triston Abraham Labs CBC: Recent Labs 01/20/24 1749 WBC 4.2 HGB 16.1 PLT 156 MCV 94.3 RDW 14.1 BMP: Recent Labs 01/20/24 1749 NA 134* K 4.1 CL 93* CO2 26 BUN 7* CREATININE 0.59* CALCIUM 8.2* Liver Profile: Recent Labs 01/20/24 1749 AST 102* ALT 106* BILITOT 0.5 ALKPHOS 100 PROT 7.3 Glucose: Recent Labs 01/20/24 1749 GLUCOSE 174* Lactic Acid: No lab exists for component: LACTA Cardiac Injury Profile: No results for input(s): CKTOTAL, CKMB, TROPONINI in the last 72 hours. Last 24 Hours: No results found for this or any previous visit (from the past 24 hours). ASSESSMENT & PLAN Alcohol use disorder, severe Nicotine use disorder Counseled patient on biopsychosocial consequences of substance use. Encouraged professional chemical dependency treatment. Encouraged 12 step meeting attendance. Follow up plans for addiction management discussed with patient: Interested in IOP and vivitrol - would prefer [facility] IOP and MAT follow up Alcohol withdrawal Nicotine withdrawal Last use of alcohol was on 01/19. PNB taper to manage alcohol withdrawal symptoms. 64 q 4 hours for today. CIWA scores per unit protocol. PRN medications for withdrawal symptom management added. Encouraged to participate in all unit activities. Thiamine and folate ordered Home GBP 600mg TID ordered NRT ordered Mild transaminitis on admission - ordered rpt CMP to check, if trending down can start PO naltrexone at dinner with plan for vivitrol at discharge Disposition: Discharge anticipated in 3-4 days. This is pending: Resolution of withdrawal symptoms. Medical stabilization. Labs/tests/tasks to review: viv bernabe. Consultants to coordinate care with: None. This patient was staffed with Dr. Mckeon. Soraida Caldwell MD electronically signed this at 8:29 AM Cosigned by Jonatan Mckeon MD at 01/22/2024 3:29 PM EDT Associated attestation - Jonatan Mckeon MD - 01/22/2024 3:29 PM EDT I saw and evaluated the patient, participating in the laboy portions of the service. We reviewed the patient's medical record and test results. I personally spent over half of a total 35 minutes in counseling and discussion with the patient and coordination of care. This included a face to face evaluation and physical examination, and documenting clinical information on the day of visit. I have reviewed the fellow's note. I agree with the fellow s findings and plan, with any additions or corrections listed below: Remains tachycardic. Denies CP/SOB/SAINZ. Likely 2/2 to dehydration and alcohol withdrawal. Encouraged oral hydration. Will give 1 time dose of beta ghulam if tachycardia persists to see his response. documented in this encounter [facility] 01-23-2024 Note Problem: Potential f or Substance Withdrawal Goal: Verbalizes signs/symptoms of withdrawal Outcome: Progressing Goal: Reports signs/symptoms of withdrawal Outcome: Progressing Goal: Free of withdrawal symptoms Outcome: Progressing [facility] 01-23-2024 Plan of care note Problem: Potential for Substance Withdrawal Goal: Verbalizes signs/symptoms of withdrawal Outcome: Progressing Goal: Reports signs/symptoms of withdrawal Outcome: Progressing Goal: Free of withdrawal symptoms Outcome: Progressing T [facility] 01-23-2024 Nurse Note Patient is up and steady, seen in group room socializing. Pt is cooperative and med compliant. Pt denies SI/HI/AVH. Pt encouraged to notify staff for any questions and concerns. T [facility] 01-22-2024 Note Formatting of this n ote might be different from the original. Patient interested in IOP and MAT. Patient scheduled for [facility] on 01/28/2024 at 1:30 PM. Patient scheduled for MAT with nurse practitioner Feli on 02/12/2024 at 2 PM. All information included in patient's discharge paperwork. T [facility] 01-22-2024 Note Formatting of this n ote might be different from the original. Patient interested in IOP and MAT. Patient scheduled for [facility] on 01/28/2024 at 1:30 PM. Patient scheduled for MAT with nurse practitioner Feli on 02/12/2024 at 2 PM. All information included in patient's discharge paperwork. [facility] 01-22-2024 Group counseling note Department: [facility] Group Topic: Recreation Therapy Group Date: 01/22/2024 Start Time: 1035 End Time: 1110 Facilitators: Aurora Camarena Number of Participants: 6 Group Name: Recreation Therapy Treatment Modality: Recreation Therapy Purpose: enhance coping skills and support humor, reconnect to leisure Summary: Collaborative Art - To allow patients the opportunity to utilize collaborative skills through art, as well as, support relaxation and humor. Name: Maria De Jesus Hogan Date of : 1965 MR: [id number] Appearance: Good eye contact Affect: Appropriate Behavior: Pleasant Alertness: Alert Speech: Appropriate Level/Quality of Participation: engaged Interactions with others: pleasant and supportive Interventions utilized were Building rapport and engagement and Expressive therapy Patient's Response to Intervention: Patient engaged fully in art task by working with peers to complete each challenge. Patient was observed laughing and interacting with peers during the group. Patient was active in discussion related to decreasing barriers, as well as, future interests. Continue to encourage group participation as appropriate. 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) Alcohol withdrawal with inpatient treatment without complication (HCC) [facility] 01-22-2024 Note Problem: Potential f or Substance Withdrawal Goal: Reports signs/symptoms of withdrawal Outcome: Progressing Problem: Drug Abuse/Detox Goal: Will have no detox symptoms and will verbalize plan for changing drug-related behavior Outcome: Progressing [facility] 01-22-2024 Nurse Note Patient sitting in day lyn upon RN approach. Patient compliant with taking AM medications. Patient denies suicidal ideation, self harm, homicidal ideation, visual hallucinations, auditory hallucinations and pain. Patient pleasant throughout exam. Patient educated on plan of care and to seek staff with concerns. Patient verbalizes understanding. [facility] 01-22-2024 Plan of care note Problem: Potential for Substance Withdrawal Goal: Reports signs/symptoms of withdrawal Outcome: Progressing Problem: Drug Abuse/Detox Goal: Will have no detox symptoms and will verbalize plan for changing drug-related behavior Outcome: Progressing [facility] 01-22-2024 Note Problem: Potential f or Substance Withdrawal Goal: Verbalizes signs/symptoms of withdrawal Outcome: Progressing Goal: Reports signs/symptoms of withdrawal Outcome: Progressing Goal: Free of withdrawal symptoms Outcome: Progressing [facility] 01-22-2024 Plan of care note Problem: Potential for Substance Withdrawal Goal: Verbalizes signs/symptoms of withdrawal Outcome: Progressing Goal: Reports signs/symptoms of withdrawal Outcome: Progressing Goal: Free of withdrawal symptoms Outcome: Progressing [facility] 01-22-2024 Note Problem: Potential f or Substance Withdrawal Goal: Verbalizes signs/symptoms of withdrawal Outcome: Progressing Goal: Reports signs/symptoms of withdrawal Outcome: Progressing Goal: Free of withdrawal symptoms Outcome: Progressing [facility] 01-22-2024 Plan of care note Problem: Potential for Substance Withdrawal Goal: Verbalizes signs/symptoms of withdrawal Outcome: Progressing Goal: Reports signs/symptoms of withdrawal Outcome: Progressing Goal: Free of withdrawal symptoms Outcome: Progressing [facility] 01-21-2024 Nurse Note Patient is up and steady, seen in group room. Pt is cooperative and med compliant. Pt is encouraged to notify staff for any questions and concerns. [facility] 01-21-2024 Nurse Note Patient received PRN albuterol inhaler as per orders at 1112 for . [facility] 01-21-2024 Hospital Discharge instructions JEREMY Solis - 01/21/2024 9:38 AM EDT After detox you should abstain from any use of any mood altering chemical Appointment with your primary care physician should be scheduled It is highly recommended that you attend post hospital treatment Please read the information give to you - Intro to 12 step programs Call the National Suicide Prevention Hotline if needed at: 2-851-880-KVOK (4551) Please call the following number should you have questions regarding your discharge or aftercare appointments: [facility] documented in this encounter [facility] 01-21-2024 Note Formatting of this n ote is different from the original. Behavioral Health Psycho-Social Assessment (Social Work) Date: 01/21/2024 Patient Name: Maria De Jesus Hogan : 1965 Identifying Information: Patient is a 58-year-old male mended to ED for for detox from alcohol. Patient is known to addiction medicine team as he is previously on unit on 07/27/2023. Patient was then seen again on the medical floor on 11/27/2023. Patient has been unable to maintain sobriety since discharge from the hospital. Presenting Problem: Patient presented to the ED on 01/20/2024 requesting detox of alcohol. Reports last drink was just prior to arrival in the ED. Reports last detox was 3 months ago. Has a mechanical fall from 2 days ago. Denies hitting his head. Psychiatric History: Patient has mental health diagnosis depression anxiety. Patient denies being on any medication for mental health needs. Patient has previous engagement with outpatient mental health providers but denies any current treatment. Patient has history of psychiatric admission. Reports admissions were due to suicidal ideation while intoxicated. Denies history of recent or past suicide attempts. Patient denies current SI/HI/AVH. Patient does have an extensive history of passive SI secondary to intoxication. Patient denies plan, intent, or method but reports more increased feelings of depression and sadness. Patient denies recent or past history of SIB. Substance Abuse/Use: Patient reports that he is currently drinking upwards of 9, 24 ounce Natty Daddy beers daily. Patient reports his last drink was 01/20/2024. Patient labs are positive for alcohol (0.435) and barbitutaes. Patient first drank alcohol when he was [age] years old. Patient reports that his use was regular in his 20s, and problematic 12 years ago. He cannot identify a trigger to his problematic use, other than, I like beer . He drinks the point of intoxication, blackouts, and vomiting. He denies history of withdrawal seizure, alcohol overdoses, or DTs. Patient does have extensive history of falls while intoxicated. Patient reports previous history of engagement with AA as well as IOP. Patient denies any history of MAT engagement. Patient reports his longest period of sobriety was 6 months. Patient reports however after leaving the unit during his previous admission he relapsed almost immediately. Patient has previous history of detox occurring on 07/27/2023, 07/08/2023, 02/08/2023, 05/20/2023 (medical), 10/25/2021, 02/15/2021 (left AMA), 06/09/20, 10/01/19, 08/31/19 (left AMA), 2016 (left AMA), and 2014 (left AMA). He denies history of residential treatment Medical/Self-care Issues: Patient has medical issues such as COPD, Lombardo's esophagus, macrocytosis, and HTN. Patient has ongoing struggles with self-care secondary to substance use disorder. Patient is increased in both frequency and tolerance over time. Patient also report struggling to recover from the effects of his substance use. Patient reports experiencing poor nutrition and sleep secondary to his substance use. Legal/Trauma/ History: Patient denies any current legal issues. Patient reports past legal history of child support violations. Patient denies any history of childhood abuse. Patient does report however his father when he was 11 years old which was a traumatic incident to him. Patient denies any history of trauma abuse as an adult. Patient denies any history [place] or status. Family Constellation/Childhood History: Patient reports that he is currently to his living in [facility]. Patient reports that he has 3 biological children and 4 stepchildren. Patient reports that his father in his 11 years old. Patient did not report his mother is still alive currently. Patient was born and raised in [place], [place] by his mother and father. He reports that his father when he was 11 years old, and this was traumatic for him. Patient reports that he was raised primarily by his mother for the remainder of his childhood. He denies childhood abuse. Education/Work: Patient reports that he graduated high school. 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 Patient denies SSI/SSD. Cultural/Spirituality/Leisure: Patient denies any cultural needs or concerns at the current time. Patient denies identify any yarsanism preference. It is unknown if patient is attending services anywhere currently. Patient reports he used to enjoy leisure activities such as golfing but has been unable to do so due to his ongoing substance use disorder. Support Systems/Collateral Information: Patient reports that his is his primary social. Patient reports that she is sober and supportive of his recovery needs and efforts. Patient reports that his is aware that he is admitted to the hospital. C-SSRS Actual Attempt (Past 3 Months): No (Patient has history of psychiatric admission. Reports admissions were due to suicidal ideation while intoxicated. Patient denies any recent history of suicide attempts) Actual Attempt (Lifetime): No (Patient denies any past history of suicide attempts) Interrupted Attempts (Past 3 Months): No (Patient denies) Interrupted Attempts (Lifetime): No (Patient denies) Aborted or Self-Interrupted Attempt (Past 3 Months): No (Patient denies) Aborted or Self-Interrupted Attempt (Lifetime): No (Patient denies) Preparatory Acts or Behavior (Past 3 Months): No (Patient denies) Preparatory Acts or Behavior (Lifetime): No (Patient denies) Has subject engaged in non-suicidal self-injurious behavior? (Past 3 Months): No (Patient denies any recent history of SIB) Has subject engaged in non-suicidal self-injurious behavior? (Lifetime): No (Patient denies any past history of SIB) Suicidal Ideation: (Patient denies current SI/HI/AVH. Patient does have an extensive history of passive SI secondary to intoxication. Patient denies plan, intent, or method but reports more increased feelings of depression and sadness.) Activating Events (Recent): Recent loss(es) or other significant negative event(s) (legal, financial, relationship, etc.) Describe:: Ongoing struggles substance use Treatment History: Previous psychiatric diagnoses and treatments, Non-compliant with treatment, Not receiving treatment (Patient has mental health diagnosis depression anxiety. Patient denies being on any medication for mental health needs. Patient has previous engagement with outpatient mental health providers but denies any current treatment.) Clinical Status (Recent): Major depressive episode, Substance abuse or dependence, Hopelessness, Agitation or severe anxiety, Highly impulsive behavior, Perceived burden on family or others (Risk factors) Protective Factors (Recent): Identifies reasons for living, Responsibility to family or others and/or living with family (Protective factors) Describe any suicidal, self-injurious or aggressive behavior (include dates): Patient has history of psychiatric admission. Reports admissions were due to suicidal ideation while intoxicated. Denies history of recent or past suicide attempts. Patient denies current SI/HI/AVH. Patient does have an extensive history of passive SI secondary to intoxication. Patient denies plan, intent, or method but reports more increased feelings of depression and sadness. Patient denies recent or past history of SIB. Patient has mental health diagnosis depression anxiety. Patient denies being on any medication for mental health needs. Patient has previous engagement with outpatient mental health providers but denies any current treatment. Plan: Plans for patient are currently unknown. Patient historically declines any aftercare treatment. Patient does not follow any treatment recommendations and provided to him. ELDER COUNSELOR will continue to work with patient in order to hopefully identify aftercare plans. Patient encouraged to engage in all activities that are offered to them while they are on the unit. Patient report needing additional current time. Patient encouraged to seek out [facility] unit staff should they identify any additional needs or concerns. Comment: Please note this report has been produced using speech recognition software and may contain errors related to that system including errors in grammar, punctuation, and spelling, as well as words and phrases that may be inappropriate. If there are any questions or concerns please feel free to contact the dictating provider for clarification. T [facility] 01-21-2024 Note Formatting of this n ote is different from the original. Behavioral Health Psycho-Social Assessment (Social Work) Date: 01/21/2024 Patient Name: Maria De Jesus Hogan : 1965 Identifying Information: Patient is a 58-year-old male mended to ED for for detox from alcohol. Patient is known to addiction medicine team as he is previously on unit on 07/27/2023. Patient was then seen again on the medical floor on 11/27/2023. Patient has been unable to maintain sobriety since discharge from the hospital. Presenting Problem: Patient presented to the ED on 01/20/2024 requesting detox of alcohol. Reports last drink was just prior to arrival in the ED. Reports last detox was 3 months ago. Has a mechanical fall from 2 days ago. Denies hitting his head. Psychiatric History: Patient has mental health diagnosis depression anxiety. Patient denies being on any medication for mental health needs. Patient has previous engagement with outpatient mental health providers but denies any current treatment. Patient has history of psychiatric admission. Reports admissions were due to suicidal ideation while intoxicated. Denies history of recent or past suicide attempts. Patient denies current SI/HI/AVH. Patient does have an extensive history of passive SI secondary to intoxication. Patient denies plan, intent, or method but reports more increased feelings of depression and sadness. Patient denies recent or past history of SIB. Substance Abuse/Use: Patient reports that he is currently drinking upwards of 9, 24 ounce Natty Daddy beers daily. Patient reports his last drink was 01/20/2024. Patient labs are positive for alcohol (0.435) and barbitutaes. Patient first drank alcohol when he was [age] years old. Patient reports that his use was regular in his 20s, and problematic 12 years ago. He cannot identify a trigger to his problematic use, other than, I like beer . He drinks the point of intoxication, blackouts, and vomiting. He denies history of withdrawal seizure, alcohol overdoses, or DTs. Patient does have extensive history of falls while intoxicated. Patient reports previous history of engagement with AA as well as IOP. Patient denies any history of MAT engagement. Patient reports his longest period of sobriety was 6 months. Patient reports however after leaving the unit during his previous admission he relapsed almost immediately. Patient has previous history of detox occurring on 07/27/2023, 07/08/2023, 02/08/2023, 05/20/2023 (medical), 10/25/2021, 02/15/2021 (left AMA), 06/09/20, 10/01/19, 08/31/19 (left AMA), 2016 (left AMA), and 2014 (left AMA). He denies history of residential treatment Medical/Self-care Issues: Patient has medical issues such as COPD, Lombardo's esophagus, macrocytosis, and HTN. Patient has ongoing struggles with self-care secondary to substance use disorder. Patient is increased in both frequency and tolerance over time. Patient also report struggling to recover from the effects of his substance use. Patient reports experiencing poor nutrition and sleep secondary to his substance use. Legal/Trauma/ History: Patient denies any current legal issues. Patient reports past legal history of child support violations. Patient denies any history of childhood abuse. Patient does report however his father when he was 11 years old which was a traumatic incident to him. Patient denies any history of trauma abuse as an adult. Patient denies any history [place] or status. Family Constellation/Childhood History: Patient reports that he is currently to his living in [facility]. Patient reports that he has 3 biological children and 4 stepchildren. Patient reports that his father in his 11 years old. Patient did not report his mother is still alive currently. Patient was born and raised in [place], [place] by his mother and father. He reports that his father when he was 11 years old, and this was traumatic for him. Patient reports that he was raised primarily by his mother for the remainder of his childhood. He denies childhood abuse. Education/Work: Patient reports that he graduated high school. 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 Patient denies SSI/SSD. Cultural/Spirituality/Leisure: Patient denies any cultural needs or concerns at the current time. Patient denies identify any yarsanism preference. It is unknown if patient is attending services anywhere currently. Patient reports he used to enjoy leisure activities such as golfing but has been unable to do so due to his ongoing substance use disorder. Support Systems/Collateral Information: Patient reports that his is his primary social. Patient reports that she is sober and supportive of his recovery needs and efforts. Patient reports that his is aware that he is admitted to the hospital. C-SSRS Actual Attempt (Past 3 Months): No (Patient has history of psychiatric admission. Reports admissions were due to suicidal ideation while intoxicated. Patient denies any recent history of suicide attempts) Actual Attempt (Lifetime): No (Patient denies any past history of suicide attempts) Interrupted Attempts (Past 3 Months): No (Patient denies) Interrupted Attempts (Lifetime): No (Patient denies) Aborted or Self-Interrupted Attempt (Past 3 Months): No (Patient denies) Aborted or Self-Interrupted Attempt (Lifetime): No (Patient denies) Preparatory Acts or Behavior (Past 3 Months): No (Patient denies) Preparatory Acts or Behavior (Lifetime): No (Patient denies) Has subject engaged in non-suicidal self-injurious behavior? (Past 3 Months): No (Patient denies any recent history of SIB) Has subject engaged in non-suicidal self-injurious behavior? (Lifetime): No (Patient denies any past history of SIB) Suicidal Ideation: (Patient denies current SI/HI/AVH. Patient does have an extensive history of passive SI secondary to intoxication. Patient denies plan, intent, or method but reports more increased feelings of depression and sadness.) Activating Events (Recent): Recent loss(es) or other significant negative event(s) (legal, financial, relationship, etc.) Describe:: Ongoing struggles substance use Treatment History: Previous psychiatric diagnoses and treatments, Non-compliant with treatment, Not receiving treatment (Patient has mental health diagnosis depression anxiety. Patient denies being on any medication for mental health needs. Patient has previous engagement with outpatient mental health providers but denies any current treatment.) Clinical Status (Recent): Major depressive episode, Substance abuse or dependence, Hopelessness, Agitation or severe anxiety, Highly impulsive behavior, Perceived burden on family or others (Risk factors) Protective Factors (Recent): Identifies reasons for living, Responsibility to family or others and/or living with family (Protective factors) Describe any suicidal, self-injurious or aggressive behavior (include dates): Patient has history of psychiatric admission. Reports admissions were due to suicidal ideation while intoxicated. Denies history of recent or past suicide attempts. Patient denies current SI/HI/AVH. Patient does have an extensive history of passive SI secondary to intoxication. Patient denies plan, intent, or method but reports more increased feelings of depression and sadness. Patient denies recent or past history of SIB. Patient has mental health diagnosis depression anxiety. Patient denies being on any medication for mental health needs. Patient has previous engagement with outpatient mental health providers but denies any current treatment. Plan: Plans for patient are currently unknown. Patient historically declines any aftercare treatment. Patient does not follow any treatment recommendations and provided to him. JEREMY will continue to work with patient in order to hopefully identify aftercare plans. Patient encouraged to engage in all activities that are offered to them while they are on the unit. Patient report needing additional current time. Patient encouraged to seek out [facility] unit staff should they identify any additional needs or concerns. Comment: Please note this report has been produced using speech recognition software and may contain errors related to that system including errors in grammar, punctuation, and spelling, as well as words and phrases that may be inappropriate. If there are any questions or concerns please feel free to contact the dictating provider for clarification. [facility] 01-21-2024 Nurse Note Patient received PRN respiratory TX from RT at 0915 with good results. 02 93 percent with no O2 [facility] 01-21-2024 Plan of care note The patient is Moderately Stable - Low risk of patient condition declining or worsening The patient's goals for the shift include rest The clinical goals for the shift include comfort/safety [facility] 01-21-2024 History and physical note Images from the original note were not included. ADDICTION MEDICINE 4E DETOX UNIT H&P Patient: Maria De Jesus Hogan Admit Date: 01/20/2024 Primary Care Physician: Lynda Rasheed MD HISTORY OF PRESENT ILLNESS Chief Complaint Patient presents with Alcohol Problem Maria De Jesus Hogan is a 58 y.o. year old male with a PMH of AUD, TUD, BPH and Lombardo's esophagus who that was admitted for mgmt of alcohol WD. On approach, Maria De Jesus Hogan is seen lying in hospital room stating I don't really want to talk, I'd like to sleep. Engages limitedly in brief conversation. States he is drinking 12 24ox beers (8%) daily, denies any other drug use. Did reports infrequent cannabis use to ED. Limited sober time since ADM last saw him in October on consults at [place]. States he wants to follow through with [facility] this time. On admission, a urine drug screen was negative, and a serum alcohol level was 0.435. SUBSTANCE USE HISTORY Brief Substance Use Narrative Pt reports that he has been drinking for a long time notes that he has only had 1 year of sobriety which ended 5 years ago when my mother . Pt states that his 1 year of sobriety was brought on due to a DUI and court ordered treatment. He attended chemical detox and then IOP but cannot recall what IOP he attended. He denies any other legal issues noting this time, its for me. I just want to get better . Current Substance Use Alcohol: Drinks 6-10 tall boys per day. No Hx of withdrawal Sz or DTs. Amphetamines: None. Benzos: None. Cocaine: None. Hallucinogens: None. Marijuana: reports infrequent smoking. Nicotine: Smokes 1 to 1.5 packs per day. Opioids: None. Treatment History Inpatient Rehab: None. Chem Dep IOP: previously attended IOP but Pt cannot recall where. Detoxifications: x1 [facility] [place] (per Pt). 12 Step Meetings: Has attended several in the past but does not feel that these meetings have been helpful. Medication Assisted Treatment: Denies prior treatment. Consequences [] IVDA. [x] Blackouts related to substance use. [] History of withdrawal seizures. [] History of delirium tremens. [x] History of overdoses. [x] Legal consequences of substance use. Substance Use Disorder Criteria 2-3 = mild; 4-5 = moderate; 6 or >6 = severe substance use disorder [x] Taking substance in larger amounts and/or for longer than intended. [x] Wanting to cut down or quit but not being able to. [x] Spending a lot of time obtaining the substance. [x] Craving or a strong desire to use substance. [x] Repeatedly doesn't carry out major obligations due to substance use. [x] Using despite recurring social or interpersonal problems. [x] Reducing social, occupational, or recreational activities. [x] Recurrent use in physically hazardous situations. [x] Consistent use despite recurrent physical or psychological difficulties. [x] Tolerance (increased amounts to achieve intoxication or diminished effect). [x] Withdrawal syndrome or the substance is used to avoid withdrawal. REMAINING HISTORY Psychiatric History Current Psychiatrist: None. Current Medications: None. Diagnoses: None. Previous Medication Trials: None. Psychiatric Hospitalizations: None. Previous Suicide Attempts: None. Adverse Childhood Events: None. Trauma History: None. History of Head Injuries: None. Past Medical History Past Medical History: Diagnosis Date Alcohol abuse Alcohol dependence with withdrawal (HCC) 08/31/2019 Alcohol intoxication without use disorder, uncomplicated (HCC) 10/01/2019 Alcohol use disorder 09/10/2022 Alcohol withdrawal syndrome with complication (HCC) 09/27/2021 Alcohol withdrawal syndrome without complication (HCC) Alcohol withdrawal, uncomplicated (HCC) 08/31/2019 Alcohol withdrawal, with unspecified complication (HCC) 10/02/2019 Alcohol withdrawal, with unspecified complication (HCC) 10/02/2019 Alcoholism (CMS/HCC) (HCC) Anxiety Arthritis Maria De Jesus Cerebral artery occlusion with cerebral infarction (HCC) Cerebrovascular disease Depression GERD (gastroesophageal reflux disease) Maria De Jesus Hypertension Insomnia Past Surgical History Past Surgical History: Procedure Laterality Date COLONOSCOPY 06/10/2020 EGD/Dr Madison/[facility] REMOVAL face EGD (HISTORICAL) 07/23/2022 Dr. Estrella-[facility] SMALL INTESTINE SURGERY UPPER GASTROINTESTINAL ENDOSCOPY 09/27/2021 normal WISDOM TOOTH EXTRACTION Family History Family History Problem Relation Name Age of Onset Depression Sister Maria De Jesus Hogan Other ([id number]) Sister Maria De Jesus Hogan agoraphobia Arthritis Sister Maria De Jesus Hogan Cancer Mother Maria De Jesus Hogan colon rectal cancer; dx after age 50 Other ([id number]) Mother Maria De Jesus Hogan alcoholism Alcohol abuse Mother Maria De Jesus Hogan Stroke Mother Maria De Jesus Hogan Other ([id number]) Father Maria De Jesus Hogan h/o rheumatic fever, cardiac arrest due to bee sting Hypertension Father Maria De Jesus Hogan [employer] Tobacco Use: High Risk (11/28/2023) Patient History Smoking Tobacco Use: Every Day Smokeless Tobacco Use: Never Passive Exposure: Not on file Alcohol Use: Alcohol Misuse (01/21/2024) AUDIT-C Frequency of Alcohol Consumption: 4 or more times a week Average Number of Drinks: 7 to 9 Frequency of Binge Drinking: Daily or almost daily Financial Resource Strain: Medium Risk (01/20/2024) Overall Financial Resource Strain (CARDIA) Difficulty of Paying Living Expenses: Somewhat hard Food Insecurity: No Food Insecurity (01/20/2024) Hunger Vital Sign Worried About Running Out of Food in the Last Year: Never true Ran Out of Food in the Last Year: Never true Transportation Needs: No Transportation Needs (01/21/2024) PRAPARE - Transportation Lack of Transportation (Medical): No Lack of Transportation (Non-Medical): No Physical Activity: Inactive (01/20/2024) Exercise Vital Sign Days of Exercise per Week: 0 days Minutes of Exercise per Session: 0 min Stress: No Stress Concern Present (01/20/2024) [place] [employer] - Occupational Stress Questionnaire Feeling of Stress : Not at all Social Connections: Socially Isolated (01/20/2024) Social Connection and Isolation Panel [NHANES] Frequency of Communication with Friends and Family: Never Frequency of Social Gatherings with Friends and Family: Never Attends Synagogue Services: Never Active Member of Clubs or Organizations: No Attends Club or Organization Meetings: Never Marital Status: Intimate Partner Violence: Not At Risk (01/21/2024) Humiliation, Afraid, Rape, and Kick questionnaire Fear of Current or Ex-Partner: No Emotionally Abused: No Physically Abused: No Sexually Abused: No Depression: Moderately severe depression (01/20/2024) PHQ-9 PHQ-9 Score: 17 Housing Stability: Unknown (01/20/2024) Housing Stability Vital Sign Unable to Pay for Housing in the Last Year: No Number of Times Moved in the Last Year: Not on file Homeless in the Last Year: No Utilities: Not At Risk (01/20/2024) [facility] Utilities Threatened with loss of utilities: No Health Literacy: Not on file REVIEW OF SYSTEMS Review of Systems Constitutional: Positive for diaphoresis, malaise/fatigue and night sweats. Negative for chills. Eyes: Negative for visual disturbance. Cardiovascular: Negative for chest pain. Musculoskeletal: Negative for falls. Gastrointestinal: Negative for abdominal pain, nausea and vomiting. Neurological: Positive for headaches and tremors. Negative for light-headedness. Psychiatric/Behavioral: Negative for depression, hallucinations and suicidal ideas. The patient is not nervous/anxious. EXAM Vitals Vitals: 01/20/24 1919 01/20/24 2243 01/20/24 2251 01/20/24 2300 BP: 118/78 (!) 138/99 BP Location: Left arm Left arm Patient Position: Lying Sitting Pulse: 106 (!) 129 119 Resp: 20 16 Temp: 36.8 C (98.2 F) TempSrc: Temporal SpO2: 94% 94% Weight: 104 kg (230 lb) Height: 1.803 m (5' 11) Physical Exam Constitutional: Appearance: Normal appearance. HENT: Mouth/Throat: Mouth: Mucous membranes are moist. Eyes: Extraocular Movements: Extraocular movements intact. Cardiovascular: Rate and Rhythm: Normal rate. Pulmonary: Effort: Pulmonary effort is normal. Abdominal: Palpations: Abdomen is soft. Musculoskeletal: General: Normal range of motion. Cervical back: Normal range of motion. Skin: General: Skin is warm. Neurological: General: No focal deficit present. Mental Status: He is alert and oriented to person, place, and time. IMAGING ECG 12 lead Result Date: 01/20/2024 Sinus rhythm Consider anterior infarct Electronically Signed On 01-20-2024 19:55:10 EDT by Triston Abraham LABS Recent Results (from the past 48 hours) CBC auto differential Collection Time: 01/20/24 5:49 PM Result Value Ref Range Auto WBC 4.2 3.6 - 10.7 10*3/uL RBC 4.88 4.40 - 5.90 10*6/uL Hemoglobin 16.1 13.0 - 18.0 g/dL Hematocrit 46.0 40.0 - 52.0 % MCV 94.3 77.0 - 99.0 fL MCH 33.0 26.0 - 34.0 pg MCHC 35.0 30.5 - 36.0 % RDW 14.1 11.5 - 15.0 % Platelets 156 140 - 440 10*3/uL MPV 8.8 (L) 9.0 - 12.7 fL nRBC 0.0 0.0 - 2.0 /100 WBCs Neutrophils Relative 53.2 38.0 - 82.0 % Lymphocytes Relative 30.6 15.0 - 45.0 % Monocytes Relative 14.2 (H) 5.0 - 13.0 % Eosinophils Relative 1.0 0.0 - 6.0 % Basophils Relative 0.5 0.0 - 2.0 % Immature Grans % 0.5 0.0 - 2.0 % Neutrophils Absolute 2.2 1.8 - 7.5 10*3/uL Lymphocytes Absolute 1.3 1.0 - 4.3 10*3/uL Monocytes Absolute 0.6 0.0 - 0.9 10*3/uL Eosinophils Absolute 0.0 0.0 - 0.5 10*3/uL Basophils Absolute 0.0 0.0 - 0.2 10*3/uL Immature Grans Absolute 0.0 <0.1 10*3/uL Comprehensive metabolic panel Collection Time: 01/20/24 5:49 PM Result Value Ref Range SODIUM 134 (L) 135 - 145 mmol/L POTASSIUM 4.1 3.5 - 5.1 mmol/L CHLORIDE 93 (L) 98 - 107 mmol/L CARBON DIOXIDE 26 22 - 30 mmol/L ANION GAP 15 (H) 3 - 13 mmol/L UREA NITROGEN 7 (L) 9 - 20 mg/dL CREATININE 0.59 (L) 0.66 - 1.25 mg/dL GLUCOSE 174 (H) 70 - 100 mg/dL CALCIUM 8.2 (L) 8.4 - 10.4 mg/dL AST (SGOT) 102 (H) 15 - 46 U/L ALT 106 (H) 0 - 49 U/L ALKALINE PHOSPHATASE 100 38 - 126 U/L ALBUMIN 4.3 3.5 - 5.0 g/dL BILIRUBIN, TOTAL 0.5 0.2 - 1.3 mg/dL TOTAL PROTEIN 7.3 6.3 - 8.2 g/dL eGFR >90.0 >60.0 mL/min/1.73m*2 Ethanol Collection Time: 01/20/24 5:49 PM Result Value Ref Range ETHANOL IN SER/PLAS 0.435 (HH) 0.000 - 0.010 g/dL ECG 12 lead Collection Time: 01/20/24 5:54 PM Result Value Ref Range Heart Rate 95 bpm QRSD Interval 97 ms QT Interval 367 ms QTC Interval 460 ms P [place] 50 degrees QRS [place] 55 degrees T Wave [place] 51 degrees [place] Interval 166 ms SARS-CoV-2 Antigen Collection Time: 01/20/24 6:02 PM Specimen: Nasal; Swab Result Value Ref Range SARS-CoV-2 Antigen Negative Negative Drug screen panel, emergency Collection Time: 01/20/24 6:05 PM Result Value Ref Range AMPHETAMINE SCREEN Negative BARBITURATES SCREEN Negative BENZODIAZEPINE SCREEN Negative COCAINE METAB. SCREEN Negative METHADONE SCREEN Negative OPIATES SCREEN Negative OXYCODONE SCREEN Negative PHENCYCLIDINE SCREEN Negative MEDICATIONS Home Meds Current Outpatient Medications Medication Instructions acamprosate (CAMPRAL) 333 mg, Oral, 3 times daily, Do not crush, chew, or split. albuterol 108 (90 Base) MCG/ACT inhaler 2 puffs, Inhalation, Every 6 hours PRN calcipotriene (Dovonex) 0.005 % cream Topical, 2 times daily gabapentin (NEURONTIN) 600 mg, Oral, 3 times daily melatonin 5 mg, Oral, Nightly Multiple Vitamins tablet 1 tablet, Oral, Daily naltrexone ER (VIVITROL) 380 mg, IntraMUSCular, Once nicotine (Nicoderm, Step 2) 14 MG/24HR patch 1 patch, TransDERmal, Daily pantoprazole (PROTONIX) 40 mg, Oral, Daily before breakfast Thiamine Mononitrate (VITAMIN B1) 100 mg, Oral, Daily Scheduled Inpatient Meds folic acid, 1 mg, Oral, Daily melatonin, 5 mg, Oral, Nightly nicotine, 1 patch, TransDERmal, Daily Followed by [START ON 03/03/2024] nicotine, 1 patch, TransDERmal, Daily Followed by [START ON 03/17/2024] nicotine, 1 patch, TransDERmal, Daily pantoprazole, 40 mg, Oral, Daily PHENobarbital, 97.2 mg, Oral, Q4H thiamine, 100 mg, Oral, Daily PRN Inpatient Meds PRN medications: bisacodyl, busPIRone, doxepin, ibuprofen, methocarbamol, nicotine polacrilex, nicotine polacrilex, ondansetron ODT OR ondansetron, polyethylene glycol (PEG) 3350, sodium chloride 0.9%, traZODone Continuous Inpatient Infusions ASSESSMENT & PLAN Alcohol use disorder, severe Nicotine use disorder Counseled patient on biopsychosocial consequences of substance use. Encouraged professional chemical dependency treatment. Encouraged 12 step meeting attendance. Follow up plans for addiction management discussed with patient: Interested in IOP. Alcohol withdrawal Nicotine withdrawal Last use of alcohol was on 01/19. PNB taper to manage alcohol withdrawal symptoms. 97 q 4 hours for today. CIWA scores per unit protocol. PRN medications for withdrawal symptom management added. Encouraged to participate in all unit activities. Thiamine and folate ordered Home GBP 600mg TID ordered NRT ordered Disposition: Discharge anticipated in 3-4 days. This is pending: Resolution of withdrawal symptoms. Medical stabilization. Labs/tests/tasks to review: viv bernabe. Consultants to coordinate care with: None. This patient was staffed with Dr. Mckeon. Soraida Caldwell MD electronically signed this at 2:20 PM Cosigned by Jonatan Mckeon MD at 01/21/2024 2:54 PM EDT Associated attestation - Jonatan Mckeon MD - 01/21/2024 2:54 PM EDT I saw and evaluated the patient, participating in the laboy portions of the service. We reviewed the patient's medical record and test results. I personally spent over half of a total 55 minutes in counseling and discussion with the patient and coordination of care. This included a face to face evaluation and physical examination, and documenting clinical information on the day of visit. I have reviewed the fellow's note. I agree with the fellow s findings and plan. [facility] 01-21-2024 Note [facility] 01-21-2024 History and physical note Images from the original note were not included. ADDICTION MEDICINE 4E DETOX UNIT H&P Patient: Maria De Jesus Hogan Admit Date: 01/20/2024 Primary Care Physician: Lynda Rasheed MD HISTORY OF PRESENT ILLNESS Chief Complaint Patient presents with Alcohol Problem Maria De Jesus Hogan is a 58 y.o. year old male with a PMH of AUD, TUD, BPH and Lombardo's esophagus who that was admitted for mgmt of alcohol WD. On approach, Maria De Jesus Hogan is seen lying in hospital room stating I don't really want to talk, I'd like to sleep. Engages limitedly in brief conversation. States he is drinking 12 24ox beers (8%) daily, denies any other drug use. Did reports infrequent cannabis use to ED. Limited sober time since ADM last saw him in October on consults at [place]. States he wants to follow through with [facility] this time. On admission, a urine drug screen was negative, and a serum alcohol level was 0.435. SUBSTANCE USE HISTORY Brief Substance Use Narrative Pt reports that he has been drinking for a long time notes that he has only had 1 year of sobriety which ended 5 years ago when my mother . Pt states that his 1 year of sobriety was brought on due to a DUI and court ordered treatment. He attended chemical detox and then IOP but cannot recall what IOP he attended. He denies any other legal issues noting this time, its for me. I just want to get better . Current Substance Use Alcohol: Drinks 6-10 tall boys per day. No Hx of withdrawal Sz or DTs. Amphetamines: None. Benzos: None. Cocaine: None. Hallucinogens: None. Marijuana: reports infrequent smoking. Nicotine: Smokes 1 to 1.5 packs per day. Opioids: None. Treatment History Inpatient Rehab: None. Chem Dep IOP: previously attended IOP but Pt cannot recall where. Detoxifications: x1 PowerDsine (per Pt). 12 Step Meetings: Has attended several in the past but does not feel that these meetings have been helpful. Medication Assisted Treatment: Denies prior treatment. Consequences [] IVDA. [x] Blackouts related to substance use. [] History of withdrawal seizures. [] History of delirium tremens. [x] History of overdoses. [x] Legal consequences of substance use. Substance Use Disorder Criteria 2-3 = mild; 4-5 = moderate; 6 or >6 = severe substance use disorder [x] Taking substance in larger amounts and/or for longer than intended. [x] Wanting to cut down or quit but not being able to. [x] Spending a lot of time obtaining the substance. [x] Craving or a strong desire to use substance. [x] Repeatedly doesn't carry out major obligations due to substance use. [x] Using despite recurring social or interpersonal problems. [x] Reducing social, occupational, or recreational activities. [x] Recurrent use in physically hazardous situations. [x] Consistent use despite recurrent physical or psychological difficulties. [x] Tolerance (increased amounts to achieve intoxication or diminished effect). [x] Withdrawal syndrome or the substance is used to avoid withdrawal. REMAINING HISTORY Psychiatric History Current Psychiatrist: None. Current Medications: None. Diagnoses: None. Previous Medication Trials: None. Psychiatric Hospitalizations: None. Previous Suicide Attempts: None. Adverse Childhood Events: None. Trauma History: None. History of Head Injuries: None. Past Medical History Past Medical History: Diagnosis Date Alcohol abuse Alcohol dependence with withdrawal (HCC) 08/31/2019 Alcohol intoxication without use disorder, uncomplicated (HCC) 10/01/2019 Alcohol use disorder 09/10/2022 Alcohol withdrawal syndrome with complication (HCC) 09/27/2021 Alcohol withdrawal syndrome without complication (HCC) Alcohol withdrawal, uncomplicated (HCC) 08/31/2019 Alcohol withdrawal, with unspecified complication (HCC) 10/02/2019 Alcohol withdrawal, with unspecified complication (HCC) 10/02/2019 Alcoholism (CMS/HCC) (HCC) Anxiety Arthritis Maria De Jesus Cerebral artery occlusion with cerebral infarction (HCC) Cerebrovascular disease Depression GERD (gastroesophageal reflux disease) Maria De Jesus Hypertension Insomnia Past Surgical History Past Surgical History: Procedure Laterality Date COLONOSCOPY 06/10/2020 EGD/Dr Madison/Janis CYST REMOVAL face EGD (HISTORICAL) 07/23/2022 Dr. Estrella-[facility] SMALL INTESTINE SURGERY UPPER GASTROINTESTINAL ENDOSCOPY 09/27/2021 normal WISDOM TOOTH EXTRACTION Family History Family History Problem Relation Name Age of Onset Depression Sister Maria De Jesus Hogan Other ([id number]) Sister Maria De Jesus Hogan agoraphobia Arthritis Sister Maria De Jesus Hogan Cancer Mother Maria De Jesus Hogan colon rectal cancer; dx after age 50 Other ([id number]) Mother Maria De Jesus Hogan alcoholism Alcohol abuse Mother Maria De Jesus Hogan Stroke Mother Maria De Jesus Hogan Other ([id number]) Father Maria De Jesus Hogan h/o rheumatic fever, cardiac arrest due to bee sting Hypertension Father Maria De Jesus Hogan [employer] Tobacco Use: High Risk (11/28/2023) Patient History Smoking Tobacco Use: Every Day Smokeless Tobacco Use: Never Passive Exposure: Not on file Alcohol Use: Alcohol Misuse (01/21/2024) AUDIT-C Frequency of Alcohol Consumption: 4 or more times a week Average Number of Drinks: 7 to 9 Frequency of Binge Drinking: Daily or almost daily Financial Resource Strain: Medium Risk (01/20/2024) Overall Financial Resource Strain (CARDIA) Difficulty of Paying Living Expenses: Somewhat hard Food Insecurity: No Food Insecurity (01/20/2024) Hunger Vital Sign Worried About Running Out of Food in the Last Year: Never true Ran Out of Food in the Last Year: Never true Transportation Needs: No Transportation Needs (01/21/2024) PRAPARE - Transportation Lack of Transportation (Medical): No Lack of Transportation (Non-Medical): No Physical Activity: Inactive (01/20/2024) Exercise Vital Sign Days of Exercise per Week: 0 days Minutes of Exercise per Session: 0 min Stress: No Stress Concern Present (01/20/2024) [place] [employer] - Occupational Stress Questionnaire Feeling of Stress : Not at all Social Connections: Socially Isolated (01/20/2024) Social Connection and Isolation Panel [NHANES] Frequency of Communication with Friends and Family: Never Frequency of Social Gatherings with Friends and Family: Never Attends Synagogue Services: Never Active Member of Clubs or Organizations: No Attends Club or Organization Meetings: Never Marital Status: Intimate Partner Violence: Not At Risk (01/21/2024) Humiliation, Afraid, Rape, and Kick questionnaire Fear of Current or Ex-Partner: No Emotionally Abused: No Physically Abused: No Sexually Abused: No Depression: Moderately severe depression (01/20/2024) PHQ-9 PHQ-9 Score: 17 Housing Stability: Unknown (01/20/2024) Housing Stability Vital Sign Unable to Pay for Housing in the Last Year: No Number of Times Moved in the Last Year: Not on file Homeless in the Last Year: No Utilities: Not At Risk (01/20/2024) [facility] Utilities Threatened with loss of utilities: No Health Literacy: Not on file REVIEW OF SYSTEMS Review of Systems Constitutional: Positive for diaphoresis, malaise/fatigue and night sweats. Negative for chills. Eyes: Negative for visual disturbance. Cardiovascular: Negative for chest pain. Musculoskeletal: Negative for falls. Gastrointestinal: Negative for abdominal pain, nausea and vomiting. Neurological: Positive for headaches and tremors. Negative for light-headedness. Psychiatric/Behavioral: Negative for depression, hallucinations and suicidal ideas. The patient is not nervous/anxious. EXAM Vitals Vitals: 01/20/24 1919 01/20/24 2243 01/20/24 2251 01/20/24 2300 BP: 118/78 (!) 138/99 BP Location: Left arm Left arm Patient Position: Lying Sitting Pulse: 106 (!) 129 119 Resp: 20 16 Temp: 36.8 C (98.2 F) TempSrc: Temporal SpO2: 94% 94% Weight: 104 kg (230 lb) Height: 1.803 m (5' 11) Physical Exam Constitutional: Appearance: Normal appearance. HENT: Mouth/Throat: Mouth: Mucous membranes are moist. Eyes: Extraocular Movements: Extraocular movements intact. Cardiovascular: Rate and Rhythm: Normal rate. Pulmonary: Effort: Pulmonary effort is normal. Abdominal: Palpations: Abdomen is soft. Musculoskeletal: General: Normal range of motion. Cervical back: Normal range of motion. Skin: General: Skin is warm. Neurological: General: No focal deficit present. Mental Status: He is alert and oriented to person, place, and time. IMAGING ECG 12 lead Result Date: 01/20/2024 Sinus rhythm Consider anterior infarct Electronically Signed On 01-20-2024 19:55:10 EDT by Triston Abraham LABS Recent Results (from the past 48 hours) CBC auto differential Collection Time: 01/20/24 5:49 PM Result Value Ref Range Auto WBC 4.2 3.6 - 10.7 10*3/uL RBC 4.88 4.40 - 5.90 10*6/uL Hemoglobin 16.1 13.0 - 18.0 g/dL Hematocrit 46.0 40.0 - 52.0 % MCV 94.3 77.0 - 99.0 fL MCH 33.0 26.0 - 34.0 pg MCHC 35.0 30.5 - 36.0 % RDW 14.1 11.5 - 15.0 % Platelets 156 140 - 440 10*3/uL MPV 8.8 (L) 9.0 - 12.7 fL nRBC 0.0 0.0 - 2.0 /100 WBCs Neutrophils Relative 53.2 38.0 - 82.0 % Lymphocytes Relative 30.6 15.0 - 45.0 % Monocytes Relative 14.2 (H) 5.0 - 13.0 % Eosinophils Relative 1.0 0.0 - 6.0 % Basophils Relative 0.5 0.0 - 2.0 % Immature Grans % 0.5 0.0 - 2.0 % Neutrophils Absolute 2.2 1.8 - 7.5 10*3/uL Lymphocytes Absolute 1.3 1.0 - 4.3 10*3/uL Monocytes Absolute 0.6 0.0 - 0.9 10*3/uL Eosinophils Absolute 0.0 0.0 - 0.5 10*3/uL Basophils Absolute 0.0 0.0 - 0.2 10*3/uL Immature Grans Absolute 0.0 <0.1 10*3/uL Comprehensive metabolic panel Collection Time: 01/20/24 5:49 PM Result Value Ref Range SODIUM 134 (L) 135 - 145 mmol/L POTASSIUM 4.1 3.5 - 5.1 mmol/L CHLORIDE 93 (L) 98 - 107 mmol/L CARBON DIOXIDE 26 22 - 30 mmol/L ANION GAP 15 (H) 3 - 13 mmol/L UREA NITROGEN 7 (L) 9 - 20 mg/dL CREATININE 0.59 (L) 0.66 - 1.25 mg/dL GLUCOSE 174 (H) 70 - 100 mg/dL CALCIUM 8.2 (L) 8.4 - 10.4 mg/dL AST (SGOT) 102 (H) 15 - 46 U/L ALT 106 (H) 0 - 49 U/L ALKALINE PHOSPHATASE 100 38 - 126 U/L ALBUMIN 4.3 3.5 - 5.0 g/dL BILIRUBIN, TOTAL 0.5 0.2 - 1.3 mg/dL TOTAL PROTEIN 7.3 6.3 - 8.2 g/dL eGFR >90.0 >60.0 mL/min/1.73m*2 Ethanol Collection Time: 01/20/24 5:49 PM Result Value Ref Range ETHANOL IN SER/PLAS 0.435 (HH) 0.000 - 0.010 g/dL ECG 12 lead Collection Time: 01/20/24 5:54 PM Result Value Ref Range Heart Rate 95 bpm QRSD Interval 97 ms QT Interval 367 ms QTC Interval 460 ms P [place] 50 degrees QRS [place] 55 degrees T Wave [place] 51 degrees [place] Interval 166 ms SARS-CoV-2 Antigen Collection Time: 01/20/24 6:02 PM Specimen: Nasal; Swab Result Value Ref Range SARS-CoV-2 Antigen Negative Negative Drug screen panel, emergency Collection Time: 01/20/24 6:05 PM Result Value Ref Range AMPHETAMINE SCREEN Negative BARBITURATES SCREEN Negative BENZODIAZEPINE SCREEN Negative COCAINE METAB. SCREEN Negative METHADONE SCREEN Negative OPIATES SCREEN Negative OXYCODONE SCREEN Negative PHENCYCLIDINE SCREEN Negative MEDICATIONS Home Meds Current Outpatient Medications Medication Instructions acamprosate (CAMPRAL) 333 mg, Oral, 3 times daily, Do not crush, chew, or split. albuterol 108 (90 Base) MCG/ACT inhaler 2 puffs, Inhalation, Every 6 hours PRN calcipotriene (Dovonex) 0.005 % cream Topical, 2 times daily gabapentin (NEURONTIN) 600 mg, Oral, 3 times daily melatonin 5 mg, Oral, Nightly Multiple Vitamins tablet 1 tablet, Oral, Daily naltrexone ER (VIVITROL) 380 mg, IntraMUSCular, Once nicotine (Nicoderm, Step 2) 14 MG/24HR patch 1 patch, TransDERmal, Daily pantoprazole (PROTONIX) 40 mg, Oral, Daily before breakfast Thiamine Mononitrate (VITAMIN B1) 100 mg, Oral, Daily Scheduled Inpatient Meds folic acid, 1 mg, Oral, Daily melatonin, 5 mg, Oral, Nightly nicotine, 1 patch, TransDERmal, Daily Followed by [START ON 03/03/2024] nicotine, 1 patch, TransDERmal, Daily Followed by [START ON 03/17/2024] nicotine, 1 patch, TransDERmal, Daily pantoprazole, 40 mg, Oral, Daily PHENobarbital, 97.2 mg, Oral, Q4H thiamine, 100 mg, Oral, Daily PRN Inpatient Meds PRN medications: bisacodyl, busPIRone, doxepin, ibuprofen, methocarbamol, nicotine polacrilex, nicotine polacrilex, ondansetron ODT OR ondansetron, polyethylene glycol (PEG) 3350, sodium chloride 0.9%, traZODone Continuous Inpatient Infusions ASSESSMENT & PLAN Alcohol use disorder, severe Nicotine use disorder Counseled patient on biopsychosocial consequences of substance use. Encouraged professional chemical dependency treatment. Encouraged 12 step meeting attendance. Follow up plans for addiction management discussed with patient: Interested in IOP. Alcohol withdrawal Nicotine withdrawal Last use of alcohol was on 01/19. PNB taper to manage alcohol withdrawal symptoms. 97 q 4 hours for today. CIWA scores per unit protocol. PRN medications for withdrawal symptom management added. Encouraged to participate in all unit activities. Thiamine and folate ordered Home GBP 600mg TID ordered NRT ordered Disposition: Discharge anticipated in 3-4 days. This is pending: Resolution of withdrawal symptoms. Medical stabilization. Labs/tests/tasks to review: viv bernabe. Consultants to coordinate care with: None. This patient was staffed with Dr. Mckeon. Soraida Caldwell MD electronically signed this at 2:20 PM Cosigned by Jonatan Mckeon MD at 01/21/2024 2:54 PM EDT Associated attestation - Jonatan Mckeon MD - 01/21/2024 2:54 PM EDT I saw and evaluated the patient, participating in the laboy portions of the service. We reviewed the patient's medical record and test results. I personally spent over half of a total 55 minutes in counseling and discussion with the patient and coordination of care. This included a face to face evaluation and physical examination, and documenting clinical information on the day of visit. I have reviewed the fellow's note. I agree with the fellow s findings and plan. documented in this encounter [facility] 01-20-2024 Nurse Note Pt arrived from [facility] ED via cart with squad and security, skin check completed upon arrival to the unit. Pt oriented to room and unit, pt here states 3 months ago, pt states he remained sober for about 2 weeks and feels his trigger is the fact that his daughter lives with them and drinks and smokes marijuana, pt states they are going to tell her she can't stay at the house any longer. Pt endorses drinking 6-8 beers (8%) daily, denies any other drug use. Pt states he wants to follow through with IOP this time and wants this to be his last time here. Pt alert and oriented, med compliant, pt states slept well through the night, pt denies SI/HI/AVH, V&D. Pt encouraged to update staff with any change in condition. Will monitor pt for safety. [facility] 01-20-2024 Emergency department Note Called in report to JAY Acevedo at [facility] 4. Jacqueline Richardson RN 01/20/242202 [facility] 01-20-2024 Emergency department Note Called in report to JAY Acevedo at [facility] 4W. Jacqueline Richardson RN 01/20/242202 This will serve as my Supervisory note and shared attestation. I personally saw the patient and made/approved the management plan and take responsibility for the patient management. I did perform a substantive portion of the visit including all aspects of the Medical Decision Making. All diagnostic, treatment, and disposition decisions were made by myself in conjunction with the resident. For all further details of the patient's emergency department visit, please see their documentation. [facility] ED EMERGENCY DEPARTMENT ENCOUNTER Pt Name: Maria De Jesus Hogan Birthdate 1965 Date of evaluation: 01/20/2024 Provider: Triston Abraham MD CHIEF COMPLAINT Chief Complaint Patient presents with Alcohol Problem HISTORY OF PRESENT ILLNESS I wore proper PPE for the entirety of this encounter. Maria De Jesus Hogan is a 58 y.o. male who presents to the emergency department with request for detox from alcohol. 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 Says was in detox about 3 months ago. Had a mechanical fall 2 days ago but did not hit head or hurt anything. Nursing Notes were reviewed. REVIEW OF SYSTEMS As above PAST MEDICAL HISTORY Past Medical History: Diagnosis Date Alcohol abuse Alcohol dependence with withdrawal (HCC) 08/31/2019 Alcohol intoxication without use disorder, uncomplicated (HCC) 10/01/2019 Alcohol use disorder 09/10/2022 Alcohol withdrawal syndrome with complication (HCC) 09/27/2021 Alcohol withdrawal syndrome without complication (HCC) Alcohol withdrawal, uncomplicated (HCC) 08/31/2019 Alcohol withdrawal, with unspecified complication (HCC) 10/02/2019 Alcohol withdrawal, with unspecified complication (HCC) 10/02/2019 Alcoholism ([facility]/HCC) (HCC) Anxiety Arthritis Maria De Jesus Cerebral artery occlusion with cerebral infarction (HCC) Cerebrovascular disease Depression GERD (gastroesophageal reflux disease) Maria De Jesus Hypertension Insomnia SURGICAL HISTORY Past Surgical History: Procedure Laterality Date COLONOSCOPY 06/10/2020 EGD/Dr Madison/AMANDA CYST REMOVAL face EGD (HISTORICAL) 07/23/2022 Dr. Estrella-[facility] SMALL INTESTINE SURGERY UPPER GASTROINTESTINAL ENDOSCOPY 09/27/2021 normal WISDOM TOOTH EXTRACTION CURRENT MEDICATIONS Previous Medications ACAMPROSATE (CAMPRAL) 333 MG EC TABLET Take 1 tablet (333 mg) by mouth 3 times daily. Do not crush, chew, or split. ALBUTEROL 108 (90 BASE) MCG/ACT INHALER Inhale 2 puffs every 6 hours as needed for wheezing or shortness of breath. CALCIPOTRIENE (DOVONEX) 0.005 % CREAM Apply topically 2 times daily. GABAPENTIN (NEURONTIN) 600 MG TABLET Take 1 tablet (600 mg) by mouth 3 times daily. MELATONIN 5 MG TABLET Take 1 tablet (5 mg) by mouth Nightly. MULTIPLE VITAMINS TABLET Take 1 tablet by mouth daily. NALTREXONE ER (VIVITROL) INJECTION Inject 4 mL (380 mg) into the buttocks Once for 1 dose. NICOTINE (NICODERM, STEP 2) 14 MG/24HR PATCH Place 1 patch on the skin daily. Do not start before October 23, 2022. PANTOPRAZOLE (PROTONIX) 40 MG EC TABLET Take 1 tablet (40 mg) by mouth every morning (before breakfast). THIAMINE MONONITRATE (VITAMIN B1) 100 MG TABLET Take 1 tablet (100 mg) by mouth daily. ALLERGIES Bee venom, Nickel, and Tramadol FAMILY HISTORY Family History Problem Relation Name Age of Onset Depression Sister Maria De Jesus Hogan Other ([id number]) Sister Maria De Jesus Hogan agoraphobia Arthritis Sister Maria De Jesus Hogan Cancer Mother Maria De Jesus Hogan colon rectal cancer; dx after age 50 Other ([id number]) Mother Maria De Jesus Hogan alcoholism Alcohol abuse Mother Maria De Jesus Hogan Stroke Mother Maria De Jesus Hogan Other ([phone]) Father Maria De Jesus Hogan h/o rheumatic fever, cardiac arrest due to bee sting Hypertension Father Maria De Jesus Hogan SOCIAL HISTORY Social History Socioeconomic History Marital status: Tobacco Use Smoking status: Every Day Current packs/day: 2.00 Average packs/day: 2.0 packs/day for 38.3 years (76.6 ttl pk-yrs) Types: Cigarettes Start date: 10/10/1985 Smokeless tobacco: Never Vaping Use Vaping status: Never Used Substance and Sexual Activity Alcohol use: Yes Comment: Detox home for a week 0 drinks 02/17/23, 6 tall boys/ daily 11/28/23 Drug use: No Sexual activity: Yes Partners: Female control/protection: Other Comment: live with Social Determinants of Health Financial Resource Strain: Low Risk (07/28/2023) Overall Financial Resource Strain (CARDIA) Difficulty of Paying Living Expenses: Not very hard Food Insecurity: No Food Insecurity (11/28/2023) Hunger Vital Sign Worried About Running Out of Food in the Last Year: Never true Ran Out of Food in the Last Year: Never true Transportation Needs: No Transportation Needs (11/28/2023) PRAPARE - Transportation Lack of Transportation (Medical): No Lack of Transportation (Non-Medical): No Physical Activity: Inactive (07/28/2023) Exercise Vital Sign Days of Exercise per Week: 0 days Minutes of Exercise per Session: 0 min Stress: Stress Concern Present (07/28/2023) [place] [employer] - Occupational Stress Questionnaire Feeling of Stress : To some extent Social Connections: Moderately Isolated (07/28/2023) Social Connection and Isolation Panel [NHANES] Frequency of Communication with Friends and Family: Twice a week Frequency of Social Gatherings with Friends and Family: Once a week Attends Synagogue Services: Never Active Member of Clubs or Organizations: No Attends Club or Organization Meetings: Never Marital Status: Intimate Partner Violence: Not At Risk (11/28/2023) Humiliation, Afraid, Rape, and Kick questionnaire Fear of Current or Ex-Partner: No Emotionally Abused: No Physically Abused: No Sexually Abused: No Housing Stability: Low Risk (07/28/2023) Housing Stability Vital Sign Unable to Pay for Housing in the Last Year: No Number of Places Lived in the Last Year: 1 Unstable Housing in the Last Year: No SCREENINGS [place] Coma Scale Best Eye Response: Spontaneous Best Verbal Response: Oriented Best Motor Response: Follows commands [place] Coma Scale Score: 15 PHYSICAL EXAM ED Triage Vitals [01/20/24 1722] Temp Heart Rate Resp BP 36.5 C (97.7 F) 103 20 (!) 142/89 SpO2 Temp Source Heart Rate Source Patient Position 94 % Temporal Monitor -- BP Location FiO2 (%) -- -- Constitutional: No acute distress HEENT:Head: Atraumatic Eyes: Conjunctivae normal ENT: Mucous membranes moist. CV: RRR RESP: CTAB, good respiratory effort, no increased wob MSK: Normal bulk and tone, no gross deformity EXTR: Warm and well perfused, no edema SKIN: No rash/bruising/erythema PSYCH: Appropriate affect, cooperative behavior NEURO: Alert, face symmetric, + slurred speech DIAGNOSTIC RESULTS Interpretation per the Radiologist below, if available at the time of this note: No orders to display LABS: Labs Reviewed CBC WITH AUTO DIFFERENTIAL - Abnormal Result Value Auto WBC 4.2 RBC 4.88 Hemoglobin 16.1 Hematocrit 46.0 MCV 94.3 MCH 33.0 MCHC 35.0 RDW 14.1 Platelets 156 MPV 8.8 (*) nRBC 0.0 Neutrophils Relative 53.2 Lymphocytes Relative 30.6 Monocytes Relative 14.2 (*) Eosinophils Relative 1.0 Basophils Relative 0.5 Immature Grans % 0.5 Neutrophils Absolute 2.2 Lymphocytes Absolute 1.3 Monocytes Absolute 0.6 Eosinophils Absolute 0.0 Basophils Absolute 0.0 Immature Grans Absolute 0.0 COMPREHENSIVE METABOLIC PANEL - Abnormal SODIUM 134 (*) POTASSIUM 4.1 CHLORIDE 93 (*) CARBON DIOXIDE 26 ANION GAP 15 (*) UREA NITROGEN 7 (*) CREATININE 0.59 (*) GLUCOSE 174 (*) CALCIUM 8.2 (*) AST (SGOT) 102 (*) ALT 106 (*) ALKALINE PHOSPHATASE 100 ALBUMIN 4.3 BILIRUBIN, TOTAL 0.5 TOTAL PROTEIN 7.3 eGFR >90.0 ETHANOL - Abnormal ETHANOL IN SER/PLAS 0.435 (*) Narrative: NOTE: This result is for medical treatment only. Analysis performed using non-forensic procedures. SARS-COV-2 ANTIGEN - Normal SARS-CoV-2 Antigen Negative DRUGS OF ABUSE AMPHETAMINE SCREEN Negative BARBITURATES SCREEN Negative BENZODIAZEPINE SCREEN Negative COCAINE METAB. SCREEN Negative METHADONE SCREEN Negative OPIATES SCREEN Negative OXYCODONE SCREEN Negative PHENCYCLIDINE SCREEN Negative Narrative: The expected value for all of the drugs listed above is Negative. The following drugs or drug groups have been screened for by Immunoassay at the following thresholds: Amphetamine class (1000 ng/mL) Barbiturates (200 ng/mL) Benzodiazepines (200 ng/mL) Cocaine (300 ng/mL) Methadone (300 ng/mL) Opiates (300 ng/mL) Oxycodone (100 ng/mL) PCP (25 ng/mL) NOTE: These results are for medical treatment only. Analysis performed using non-forensic procedures. POSITIVE results are NOT confirmed by a more specific alternative method unless requested. If confirmation is needed, request confirmation under separate order. EMERGENCY DEPARTMENT COURSE and DIFFERENTIAL DIAGNOSIS/MDM: Vitals: Vitals: 01/20/24 1722 01/20/24 1914 01/20/241918 BP: (!) 142/89 118/78 118/78 BP Location: Left arm Patient Position: Lying Pulse: 103 105 106 Resp: 20 20 Temp: 36.5 C (97.7 F) TempSrc: Temporal SpO2: 94% 94% Medications LORazepam (Ativan) injection 2 mg (has no administration in time range) sodium chloride 0.9 % bolus 1,000 mL (1,000 mL IntraVENous New Bag 01/20/24 1800) ondansetron ODT (Zofran-ODT) disintegrating tablet 8 mg (8 mg Oral Given 01/20/24 1756) I personally saw the patient and performed a substantive portion of the visit including all aspects of the medical decision making. Pt appears clinically intoxicated. Vitals overall normal. Ethanol level was significantly elevated. Mildly increased anion gap. Given 1 L of IV NS. Medically cleared for inpatient detox. Admitted to inpatient detox. Diagnoses as of 01/20/242048 Alcohol abuse PROCEDURES: Unless otherwise noted below, none Procedures Patients symptoms are consistent with sepsis, severe sepsis, or septic shock (If yes use .sepsiscoremeasure): no FINAL IMPRESSION 1. Alcohol abuse DISPOSITION/PLAN Admit 01/20/2024 08:35:15 PM PATIENT REFERRED TO: No follow-up provider specified. DISCHARGE MEDICATIONS: New Prescriptions No medications on file (Please note: Portions of this note were completed with a voice recognition program. Efforts were made to edit the dictations but occasionally words and phrases are mis-transcribed.) Triston Abraham MD PATRICIA Emergency Medicine Physician [facility] Triston Abraham MD 01/20/242048 EMERGENCY DEPARTMENT ENCOUNTER Pt Name: Maria De Jesus Hogan Birthdate 1965 Date of evaluation: 01/20/2024 ED Provider: Dani Mike DO CHIEF COMPLAINT Chief Complaint Patient presents with Alcohol Problem HISTORY OF PRESENT ILLNESS (Location/Symptom, Timing/Onset, Context/Setting, Quality, Duration, Modifying Factors, Severity) Note limiting factors. I wore appropriate PPE for the entirety of this encounter. HPI Maria De Jesus Hogan is a 58 y.o. who presents to the emergency department for evaluation of alcohol abuse. Patient explains that he has been struggling with alcohol addiction for some time now. Typically drinks 6-8 tall beers a day. States that he drank 3 beers today prior to coming to the department. He is currently complaining of nausea, vomiting, occasional hematemesis, diarrhea and lower abdominal pain. Denies any fevers, jaundice, chest pain, shortness of breath. Patient has attempted Vivitrol treatment in the past, but did not follow-up with the support program. Currently here for an evaluation and to get better, is interested in outpatient treatment. Denies any drug use. He does smoke cigarettes. Nursing Notes were reviewed. Limitations to history: None Outside historians: Significant other REVIEW OF SYSTEMS Review of Systems Pertinent positives and negatives as per HPI. PAST MEDICAL HISTORY Past Medical History: Diagnosis Date Alcohol abuse Alcohol dependence with withdrawal (HCC) 08/31/2019 Alcohol intoxication without use disorder, uncomplicated (HCC) 10/01/2019 Alcohol use disorder 09/10/2022 Alcohol withdrawal syndrome with complication (HCC) 09/27/2021 Alcohol withdrawal syndrome without complication (HCC) Alcohol withdrawal, uncomplicated (HCC) 08/31/2019 Alcohol withdrawal, with unspecified complication (HCC) 10/02/2019 Alcohol withdrawal, with unspecified complication (HCC) 10/02/2019 Alcoholism (CMS/HCC) (HCC) Anxiety Arthritis Maria De Jesus Cerebral artery occlusion with cerebral infarction (HCC) Cerebrovascular disease Depression GERD (gastroesophageal reflux disease) Maria De Jesus Hypertension Insomnia SURGICAL HISTORY Past Surgical History: Procedure Laterality Date COLONOSCOPY 06/10/2020 EGD/Dr Madison/Janis CYST REMOVAL face EGD (HISTORICAL) 07/23/2022 Dr. Estrella-[facility] SMALL INTESTINE SURGERY UPPER GASTROINTESTINAL ENDOSCOPY 09/27/2021 normal WISDOM TOOTH EXTRACTION CURRENT MEDICATIONS Previous Medications ACAMPROSATE (CAMPRAL) 333 MG EC TABLET Take 1 tablet (333 mg) by mouth 3 times daily. Do not crush, chew, or split. ALBUTEROL 108 (90 BASE) MCG/ACT INHALER Inhale 2 puffs every 6 hours as needed for wheezing or shortness of breath. CALCIPOTRIENE (DOVONEX) 0.005 % CREAM Apply topically 2 times daily. GABAPENTIN (NEURONTIN) 600 MG TABLET Take 1 tablet (600 mg) by mouth 3 times daily. MELATONIN 5 MG TABLET Take 1 tablet (5 mg) by mouth Nightly. MULTIPLE VITAMINS TABLET Take 1 tablet by mouth daily. NALTREXONE ER (VIVITROL) INJECTION Inject 4 mL (380 mg) into the buttocks Once for 1 dose. NICOTINE (NICODERM, STEP 2) 14 MG/24HR PATCH Place 1 patch on the skin daily. Do not start before October 23, 2022. PANTOPRAZOLE (PROTONIX) 40 MG EC TABLET Take 1 tablet (40 mg) by mouth every morning (before breakfast). THIAMINE MONONITRATE (VITAMIN B1) 100 MG TABLET Take 1 tablet (100 mg) by mouth daily. ALLERGIES Bee venom, Nickel, and Tramadol FAMILY HISTORY Family History Problem Relation Name Age of Onset Depression Sister Maria De Jesus Hogan Other ([id number]) Sister Maria De Jesus Hogan agoraphobia Arthritis Sister Maria De Jesus Hogan Cancer Mother Maria De Jesus Hogan colon rectal cancer; dx after age 50 Other ([id number]) Mother Maria De Jesus Hogan alcoholism Alcohol abuse Mother Maria De Jesus Hogan Stroke Mother Maria De Jesus Hogan Other ([id number]) Father Maria De Jesus Hogan h/o rheumatic fever, cardiac arrest due to bee sting Hypertension Father Maria De Jesus Hogan SOCIAL HISTORY Social History Socioeconomic History Marital status: Tobacco Use Smoking status: Every Day Current packs/day: 2.00 Average packs/day: 2.0 packs/day for 38.3 years (76.6 ttl pk-yrs) Types: Cigarettes Start date: 10/10/1985 Smokeless tobacco: Never Vaping Use Vaping status: Never Used Substance and Sexual Activity Alcohol use: Yes Comment: Detox home for a week 0 drinks 02/17/23, 6 tall boys/ daily 11/28/23 Drug use: No Sexual activity: Yes Partners: Female control/protection: Other Comment: live with Social Determinants of Health Financial Resource Strain: Low Risk (07/28/2023) Overall Financial Resource Strain (CARDIA) Difficulty of Paying Living Expenses: Not very hard Food Insecurity: No Food Insecurity (11/28/2023) Hunger Vital Sign Worried About Running Out of Food in the Last Year: Never true Ran Out of Food in the Last Year: Never true Transportation Needs: No Transportation Needs (11/28/2023) PRAPARE - Transportation Lack of Transportation (Medical): No Lack of Transportation (Non-Medical): No Physical Activity: Inactive (07/28/2023) Exercise Vital Sign Days of Exercise per Week: 0 days Minutes of Exercise per Session: 0 min Stress: Stress Concern Present (07/28/2023) [place] [employer] - Occupational Stress Questionnaire Feeling of Stress : To some extent Social Connections: Moderately Isolated (07/28/2023) Social Connection and Isolation Panel [NHANES] Frequency of Communication with Friends and Family: Twice a week Frequency of Social Gatherings with Friends and Family: Once a week Attends Synagogue Services: Never Active Member of Clubs or Organizations: No Attends Club or Organization Meetings: Never Marital Status: Intimate Partner Violence: Not At Risk (11/28/2023) Humiliation, Afraid, Rape, and Kick questionnaire Fear of Current or Ex-Partner: No Emotionally Abused: No Physically Abused: No Sexually Abused: No Housing Stability: Low Risk (07/28/2023) Housing Stability Vital Sign Unable to Pay for Housing in the Last Year: No Number of Places Lived in the Last Year: 1 Unstable Housing in the Last Year: No SCREENINGS [place] Coma Scale Best Eye Response: Spontaneous Best Verbal Response: Oriented Best Motor Response: Follows commands [place] Coma Scale Score: 15 PHYSICAL EXAM ED Triage Vitals [01/20/24 1722] Temp Heart Rate Resp BP 36.5 C (97.7 F) 103 20 (!) 142/89 SpO2 Temp Source Heart Rate Source Patient Position 94 % Temporal Monitor -- BP Location FiO2 (%) -- -- Physical Exam Vitals and nursing note reviewed. Constitutional: Appearance: Normal appearance. Comments: Intoxicated HENT: Head: Normocephalic and atraumatic. Mouth/Throat: Mouth: Mucous membranes are dry. Pharynx: Oropharynx is clear. Eyes: Comments: Injected sclera Cardiovascular: Rate and Rhythm: Regular rhythm. Tachycardia present. Pulmonary: Effort: Pulmonary effort is normal. No respiratory distress. Breath sounds: Wheezing present. Abdominal: General: There is distension. Palpations: Abdomen is soft. Tenderness: There is abdominal tenderness (Periumbilical). Musculoskeletal: Right lower leg: No edema. Left lower leg: No edema. Skin: General: Skin is warm and dry. Capillary Refill: Capillary refill takes less than 2 seconds. Coloration: Skin is not jaundiced. Neurological: General: No focal deficit present. Mental Status: He is alert and oriented to person, place, and time. DIAGNOSTIC RESULTS RADIOLOGY (Per Emergency Physician): Interpretation per the Radiologist below, if available at the time of this note: No orders to display LABS: Labs Reviewed CBC WITH AUTO DIFFERENTIAL - Abnormal Result Value Auto WBC 4.2 RBC 4.88 Hemoglobin 16.1 Hematocrit 46.0 MCV 94.3 MCH 33.0 MCHC 35.0 RDW 14.1 Platelets 156 MPV 8.8 (*) nRBC 0.0 Neutrophils Relative 53.2 Lymphocytes Relative 30.6 Monocytes Relative 14.2 (*) Eosinophils Relative 1.0 Basophils Relative 0.5 Immature Grans % 0.5 Neutrophils Absolute 2.2 Lymphocytes Absolute 1.3 Monocytes Absolute 0.6 Eosinophils Absolute 0.0 Basophils Absolute 0.0 Immature Grans Absolute 0.0 COMPREHENSIVE METABOLIC PANEL - Abnormal SODIUM 134 (*) POTASSIUM 4.1 CHLORIDE 93 (*) CARBON DIOXIDE 26 ANION GAP 15 (*) UREA NITROGEN 7 (*) CREATININE 0.59 (*) GLUCOSE 174 (*) CALCIUM 8.2 (*) AST (SGOT) 102 (*) ALT 106 (*) ALKALINE PHOSPHATASE 100 ALBUMIN 4.3 BILIRUBIN, TOTAL 0.5 TOTAL PROTEIN 7.3 eGFR >90.0 ETHANOL - Abnormal ETHANOL IN SER/PLAS 0.435 (*) Narrative: NOTE: This result is for medical treatment only. Analysis performed using non-forensic procedures. SARS-COV-2 ANTIGEN - Normal SARS-CoV-2 Antigen Negative DRUGS OF ABUSE AMPHETAMINE SCREEN Negative BARBITURATES SCREEN Negative BENZODIAZEPINE SCREEN Negative COCAINE METAB. SCREEN Negative METHADONE SCREEN Negative OPIATES SCREEN Negative OXYCODONE SCREEN Negative PHENCYCLIDINE SCREEN Negative Narrative: The expected value for all of the drugs listed above is Negative. The following drugs or drug groups have been screened for by Immunoassay at the following thresholds: Amphetamine class (1000 ng/mL) Barbiturates (200 ng/mL) Benzodiazepines (200 ng/mL) Cocaine (300 ng/mL) Methadone (300 ng/mL) Opiates (300 ng/mL) Oxycodone (100 ng/mL) PCP (25 ng/mL) NOTE: These results are for medical treatment only. Analysis performed using non-forensic procedures. POSITIVE results are NOT confirmed by a more specific alternative method unless requested. If confirmation is needed, request confirmation under separate order. All other labs were within normal range or not returned as of this dictation. EMERGENCY DEPARTMENT COURSE and DIFFERENTIAL DIAGNOSIS/MDM: Vitals: Vitals: 01/20/24 1722 01/20/24 1914 01/20/241918 BP: (!) 142/89 118/78 118/78 BP Location: Left arm Patient Position: Lying Pulse: 103 105 106 Resp: 20 20 Temp: 36.5 C (97.7 F) TempSrc: Temporal SpO2: 94% 94% The patient presented with a chief complaint of alcohol abuse. The differential diagnosis associated with this patient's presentation includes intoxication, electrolyte abnormality (hyponatremia). Our workup consisted of ordering/reviewing basic labs, ethanol, drug screen, COVID, EKG. Zofran 8 mg and 1 L normal saline bolus given for symptom relief. Workup reveals elevated alcohol at 0.435. He does have hyperglycemia and elevated liver enzymes, but nothing acutely concerning. EKG sinus rhythm without acute ischemia. At this time, I think patient would benefit from an inpatient stay for detox. Patient is agreeable to this. At this time, he is somewhat agitated and restless, I ordered 2 mg [address] for now. Dr. Luis Branch will admit the patient for detox. He recommends short acting agents for agitation until patient's blood alcohol level decreases. Diagnoses as of 01/20/242037 Alcohol abuse ED Medications managed: Medications LORazepam (Ativan) injection 2 mg (has no administration in time range) sodium chloride 0.9 % bolus 1,000 mL (1,000 mL IntraVENous New Bag 01/20/24 1800) ondansetron ODT (Zofran-ODT) disintegrating tablet 8 mg (8 mg Oral Given 01/20/24 1756) PROCEDURES: Unless otherwise noted below, none Procedures FINAL IMPRESSION 1. Alcohol abuse DISPOSITION Admit 01/20/2024 08:35:15 PM PATIENT REFERRED TO: No follow-up provider specified. DISCHARGE MEDICATIONS: New Prescriptions No medications on file (Comment: Please note this report has been produced using speech recognition software and may contain errors related to that system including errors in grammar, punctuation, and spelling, as well as words and phrases that may be inappropriate. If there are any questions or concerns please feel free to contact the dictating provider for clarification.) Dani Mike DO (electronically signed) Emergency Medicine Provider Dani Mike DO Resident 01/20/242027 Dani Mike DO Resident 01/20/242037 Cosigned by Triston Abraham MD at 01/20/2024 9:00 PM EDT Pt presents seeking alcohol detox. Last drink was right before leaving house. Drinks about 6-8 beers/day. Has been through detox in past. Has never had withdrawal seizures. Currently having anxiety, vomiting, palpitations documented in this encounter [facility] 01-20-2024 Note NOTE: This result is for medical treatment only. Analysis performed using non-forensic procedures. [facility] 01-20-2024 Emergency department Triage note Pt presents seeking alcohol detox. Last drink was right before leaving house. Drinks about 6-8 beers/day. Has been through detox in past. Has never had withdrawal seizures. Currently having anxiety, vomiting, palpitations [facility] 01-20-2024 Physician Emergency department Note This will serve as my Supervisory note and shared attestation. I personally saw the patient and made/approved the management plan and take responsibility for the patient management. I did perform a substantive portion of the visit including all aspects of the Medical Decision Making. All diagnostic, treatment, and disposition decisions were made by myself in conjunction with the resident. For all further details of the patient's emergency department visit, please see their documentation. [facility] ED EMERGENCY DEPARTMENT ENCOUNTER Pt Name: Maria De Jesus Hogan Birthdate 1965 Date of evaluation: 01/20/2024 Provider: Triston Abraham MD CHIEF COMPLAINT Chief Complaint Patient presents with Alcohol Problem HISTORY OF PRESENT ILLNESS I wore proper PPE for the entirety of this encounter. Maria De Jesus Hogan is a 58 y.o. male who presents to the emergency department with request for detox from alcohol. 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 Says was in detox about 3 months ago. Had a mechanical fall 2 days ago but did not hit head or hurt anything. Nursing Notes were reviewed. REVIEW OF SYSTEMS As above PAST MEDICAL HISTORY Past Medical History: Diagnosis Date Alcohol abuse Alcohol dependence with withdrawal (HCC) 08/31/2019 Alcohol intoxication without use disorder, uncomplicated (HCC) 10/01/2019 Alcohol use disorder 09/10/2022 Alcohol withdrawal syndrome with complication (HCC) 09/27/2021 Alcohol withdrawal syndrome without complication (HCC) Alcohol withdrawal, uncomplicated (HCC) 08/31/2019 Alcohol withdrawal, with unspecified complication (HCC) 10/02/2019 Alcohol withdrawal, with unspecified complication (HCC) 10/02/2019 Alcoholism (CMS/HCC) (HCC) Anxiety Arthritis Maria De Jesus Cerebral artery occlusion with cerebral infarction (HCC) Cerebrovascular disease Depression GERD (gastroesophageal reflux disease) Maria De Jesus Hypertension Insomnia SURGICAL HISTORY Past Surgical History: Procedure Laterality Date COLONOSCOPY 06/10/2020 EGD/Dr Madison/B CYST REMOVAL face EGD (HISTORICAL) 07/23/2022 Dr. Estrella-[facility] SMALL INTESTINE SURGERY UPPER GASTROINTESTINAL ENDOSCOPY 09/27/2021 normal WISDOM TOOTH EXTRACTION CURRENT MEDICATIONS Previous Medications ACAMPROSATE (CAMPRAL) 333 MG EC TABLET Take 1 tablet (333 mg) by mouth 3 times daily. Do not crush, chew, or split. ALBUTEROL 108 (90 BASE) MCG/ACT INHALER Inhale 2 puffs every 6 hours as needed for wheezing or shortness of breath. CALCIPOTRIENE (DOVONEX) 0.005 % CREAM Apply topically 2 times daily. GABAPENTIN (NEURONTIN) 600 MG TABLET Take 1 tablet (600 mg) by mouth 3 times daily. MELATONIN 5 MG TABLET Take 1 tablet (5 mg) by mouth Nightly. MULTIPLE VITAMINS TABLET Take 1 tablet by mouth daily. NALTREXONE ER (VIVITROL) INJECTION Inject 4 mL (380 mg) into the buttocks Once for 1 dose. NICOTINE (NICODERM, STEP 2) 14 MG/24HR PATCH Place 1 patch on the skin daily. Do not start before October 23, 2022. PANTOPRAZOLE (PROTONIX) 40 MG EC TABLET Take 1 tablet (40 mg) by mouth every morning (before breakfast). THIAMINE MONONITRATE (VITAMIN B1) 100 MG TABLET Take 1 tablet (100 mg) by mouth daily. ALLERGIES Bee venom, Nickel, and Tramadol FAMILY HISTORY Family History Problem Relation Name Age of Onset Depression Sister Maria De Jesus Hogan Other ([id number]) Sister Maria De Jesus Hogan agoraphobia Arthritis Sister Maria De Jesus Hogan Cancer Mother Maria De Jesus Hogan colon rectal cancer; dx after age 50 Other ([id number]) Mother Maria De Jesus Hogan alcoholism Alcohol abuse Mother Maria De Jesus Hogan Stroke Mother Maria De Jesus Hogan Other ([id number]) Father Maria De Jesus Hogan h/o rheumatic fever, cardiac arrest due to bee sting Hypertension Father Maria De Jesus Hogan SOCIAL HISTORY Social History Socioeconomic History Marital status: Tobacco Use Smoking status: Every Day Current packs/day: 2.00 Average packs/day: 2.0 packs/day for 38.3 years (76.6 ttl pk-yrs) Types: Cigarettes Start date: 10/10/1985 Smokeless tobacco: Never Vaping Use Vaping status: Never Used Substance and Sexual Activity Alcohol use: Yes Comment: Detox home for a week 0 drinks 02/17/23, 6 tall boys/ daily 11/28/23 Drug use: No Sexual activity: Yes Partners: Female control/protection: Other Comment: live with Social Determinants of Health Financial Resource Strain: Low Risk (07/28/2023) Overall Financial Resource Strain (CARDIA) Difficulty of Paying Living Expenses: Not very hard Food Insecurity: No Food Insecurity (11/28/2023) Hunger Vital Sign Worried About Running Out of Food in the Last Year: Never true Ran Out of Food in the Last Year: Never true Transportation Needs: No Transportation Needs (11/28/2023) PRAPARE - Transportation Lack of Transportation (Medical): No Lack of Transportation (Non-Medical): No Physical Activity: Inactive (07/28/2023) Exercise Vital Sign Days of Exercise per Week: 0 days Minutes of Exercise per Session: 0 min Stress: Stress Concern Present (07/28/2023) [place] [employer] - Occupational Stress Questionnaire Feeling of Stress : To some extent Social Connections: Moderately Isolated (07/28/2023) Social Connection and Isolation Panel [NHANES] Frequency of Communication with Friends and Family: Twice a week Frequency of Social Gatherings with Friends and Family: Once a week Attends Synagogue Services: Never Active Member of Clubs or Organizations: No Attends Club or Organization Meetings: Never Marital Status: Intimate Partner Violence: Not At Risk (11/28/2023) Humiliation, Afraid, Rape, and Kick questionnaire Fear of Current or Ex-Partner: No Emotionally Abused: No Physically Abused: No Sexually Abused: No Housing Stability: Low Risk (07/28/2023) Housing Stability Vital Sign Unable to Pay for Housing in the Last Year: No Number of Places Lived in the Last Year: 1 Unstable Housing in the Last Year: No SCREENINGS [place] Coma Scale Best Eye Response: Spontaneous Best Verbal Response: Oriented Best Motor Response: Follows commands [place] Coma Scale Score: 15 PHYSICAL EXAM ED Triage Vitals [01/20/24 1722] Temp Heart Rate Resp BP 36.5 C (97.7 F) 103 20 (!) 142/89 SpO2 Temp Source Heart Rate Source Patient Position 94 % Temporal Monitor -- BP Location FiO2 (%) -- -- Constitutional: No acute distress HEENT:Head: Atraumatic Eyes: Conjunctivae normal ENT: Mucous membranes moist. CV: RRR RESP: CTAB, good respiratory effort, no increased wob MSK: Normal bulk and tone, no gross deformity EXTR: Warm and well perfused, no edema SKIN: No rash/bruising/erythema PSYCH: Appropriate affect, cooperative behavior NEURO: Alert, face symmetric, + slurred speech DIAGNOSTIC RESULTS Interpretation per the Radiologist below, if available at the time of this note: No orders to display LABS: Labs Reviewed CBC WITH AUTO DIFFERENTIAL - Abnormal Result Value Auto WBC 4.2 RBC 4.88 Hemoglobin 16.1 Hematocrit 46.0 MCV 94.3 MCH 33.0 MCHC 35.0 RDW 14.1 Platelets 156 MPV 8.8 (*) nRBC 0.0 Neutrophils Relative 53.2 Lymphocytes Relative 30.6 Monocytes Relative 14.2 (*) Eosinophils Relative 1.0 Basophils Relative 0.5 Immature Grans % 0.5 Neutrophils Absolute 2.2 Lymphocytes Absolute 1.3 Monocytes Absolute 0.6 Eosinophils Absolute 0.0 Basophils Absolute 0.0 Immature Grans Absolute 0.0 COMPREHENSIVE METABOLIC PANEL - Abnormal SODIUM 134 (*) POTASSIUM 4.1 CHLORIDE 93 (*) CARBON DIOXIDE 26 ANION GAP 15 (*) UREA NITROGEN 7 (*) CREATININE 0.59 (*) GLUCOSE 174 (*) CALCIUM 8.2 (*) AST (SGOT) 102 (*) ALT 106 (*) ALKALINE PHOSPHATASE 100 ALBUMIN 4.3 BILIRUBIN, TOTAL 0.5 TOTAL PROTEIN 7.3 eGFR >90.0 ETHANOL - Abnormal ETHANOL IN SER/PLAS 0.435 (*) Narrative: NOTE: This result is for medical treatment only. Analysis performed using non-forensic procedures. SARS-COV-2 ANTIGEN - Normal SARS-CoV-2 Antigen Negative DRUGS OF ABUSE AMPHETAMINE SCREEN Negative BARBITURATES SCREEN Negative BENZODIAZEPINE SCREEN Negative COCAINE METAB. SCREEN Negative METHADONE SCREEN Negative OPIATES SCREEN Negative OXYCODONE SCREEN Negative PHENCYCLIDINE SCREEN Negative Narrative: The expected value for all of the drugs listed above is Negative. The following drugs or drug groups have been screened for by Immunoassay at the following thresholds: Amphetamine class (1000 ng/mL) Barbiturates (200 ng/mL) Benzodiazepines (200 ng/mL) Cocaine (300 ng/mL) Methadone (300 ng/mL) Opiates (300 ng/mL) Oxycodone (100 ng/mL) PCP (25 ng/mL) NOTE: These results are for medical treatment only. Analysis performed using non-forensic procedures. POSITIVE results are NOT confirmed by a more specific alternative method unless requested. If confirmation is needed, request confirmation under separate order. EMERGENCY DEPARTMENT COURSE and DIFFERENTIAL DIAGNOSIS/MDM: Vitals: Vitals: 01/20/24 1722 01/20/244 01/20/241918 BP: (!) 142/89 118/78 118/78 BP Location: Left arm Patient Position: Lying Pulse: 103 105 106 Resp: 20 20 Temp: 36.5 C (97.7 F) TempSrc: Temporal SpO2: 94% 94% Medications LORazepam (Ativan) injection 2 mg (has no administration in time range) sodium chloride 0.9 % bolus 1,000 mL (1,000 mL IntraVENous New Bag 01/20/24 1800) ondansetron ODT (Zofran-ODT) disintegrating tablet 8 mg (8 mg Oral Given 01/20/24 1756) I personally saw the patient and performed a substantive portion of the visit including all aspects of the medical decision making. Pt appears clinically intoxicated. Vitals overall normal. Ethanol level was significantly elevated. Mildly increased anion gap. Given 1 L of IV NS. Medically cleared for inpatient detox. Admitted to inpatient detox. Diagnoses as of 01/20/242048 Alcohol abuse PROCEDURES: Unless otherwise noted below, none Procedures Patients symptoms are consistent with sepsis, severe sepsis, or septic shock (If yes use .sepsiscoremeasure): no FINAL IMPRESSION 1. Alcohol abuse DISPOSITION/PLAN Admit 01/20/2024 08:35:15 PM PATIENT REFERRED TO: No follow-up provider specified. DISCHARGE MEDICATIONS: New Prescriptions No medications on file (Please note: Portions of this note were completed with a voice recognition program. Efforts were made to edit the dictations but occasionally words and phrases are mis-transcribed.) Triston Abraham MD PATRICIA Emergency Medicine Physician [facility] Triston Abraham MD 01/20/242048 [facility] Phone: 01-20-2024 Physician Emergency department Note EMERGENCY DEPARTMENT ENCOUNTER Pt Name: Maria De Jesus Hogan Birthdate 1965 Date of evaluation: 01/20/2024 ED Provider: Dani Mike DO CHIEF COMPLAINT Chief Complaint Patient presents with Alcohol Problem HISTORY OF PRESENT ILLNESS (Location/Symptom, Timing/Onset, Context/Setting, Quality, Duration, Modifying Factors, Severity) Note limiting factors. I wore appropriate PPE for the entirety of this encounter. HPI Maria De Jesus Hogan is a 58 y.o. who presents to the emergency department for evaluation of alcohol abuse. Patient explains that he has been struggling with alcohol addiction for some time now. Typically drinks 6-8 tall beers a day. States that he drank 3 beers today prior to coming to the department. He is currently complaining of nausea, vomiting, occasional hematemesis, diarrhea and lower abdominal pain. Denies any fevers, jaundice, chest pain, shortness of breath. Patient has attempted Vivitrol treatment in the past, but did not follow-up with the support program. Currently here for an evaluation and to get better, is interested in outpatient treatment. Denies any drug use. He does smoke cigarettes. Nursing Notes were reviewed. Limitations to history: None Outside historians: Significant other REVIEW OF SYSTEMS Review of Systems Pertinent positives and negatives as per HPI. PAST MEDICAL HISTORY Past Medical History: Diagnosis Date Alcohol abuse Alcohol dependence with withdrawal (HCC) 08/31/2019 Alcohol intoxication without use disorder, uncomplicated (HCC) 10/01/2019 Alcohol use disorder 09/10/2022 Alcohol withdrawal syndrome with complication (HCC) 09/27/2021 Alcohol withdrawal syndrome without complication (HCC) Alcohol withdrawal, uncomplicated (HCC) 08/31/2019 Alcohol withdrawal, with unspecified complication (HCC) 10/02/2019 Alcohol withdrawal, with unspecified complication (HCC) 10/02/2019 Alcoholism (CMS/HCC) (HCC) Anxiety Arthritis Maria De Jesus Cerebral artery occlusion with cerebral infarction (HCC) Cerebrovascular disease Depression GERD (gastroesophageal reflux disease) Maria De Jesus Hypertension Insomnia SURGICAL HISTORY Past Surgical History: Procedure Laterality Date COLONOSCOPY 06/10/2020 EGD/Dr Madison/AMANDA CYST REMOVAL face EGD (HISTORICAL) 07/23/2022 Dr. Estrella-[facility] SMALL INTESTINE SURGERY UPPER GASTROINTESTINAL ENDOSCOPY 09/27/2021 normal WISDOM TOOTH EXTRACTION CURRENT MEDICATIONS Previous Medications ACAMPROSATE (CAMPRAL) 333 MG EC TABLET Take 1 tablet (333 mg) by mouth 3 times daily. Do not crush, chew, or split. ALBUTEROL 108 (90 BASE) MCG/ACT INHALER Inhale 2 puffs every 6 hours as needed for wheezing or shortness of breath. CALCIPOTRIENE (DOVONEX) 0.005 % CREAM Apply topically 2 times daily. GABAPENTIN (NEURONTIN) 600 MG TABLET Take 1 tablet (600 mg) by mouth 3 times daily. MELATONIN 5 MG TABLET Take 1 tablet (5 mg) by mouth Nightly. MULTIPLE VITAMINS TABLET Take 1 tablet by mouth daily. NALTREXONE ER (VIVITROL) INJECTION Inject 4 mL (380 mg) into the buttocks Once for 1 dose. NICOTINE (NICODERM, STEP 2) 14 MG/24HR PATCH Place 1 patch on the skin daily. Do not start before October 23, 2022. PANTOPRAZOLE (PROTONIX) 40 MG EC TABLET Take 1 tablet (40 mg) by mouth every morning (before breakfast). THIAMINE MONONITRATE (VITAMIN B1) 100 MG TABLET Take 1 tablet (100 mg) by mouth daily. ALLERGIES Bee venom, Nickel, and Tramadol FAMILY HISTORY Family History Problem Relation Name Age of Onset Depression Sister Maria De Jesus Hogan Other ([id number]) Sister Maria De Jesus Hogan agoraphobia Arthritis Sister Maria De Jesus Hogan Cancer Mother Maria De Jesus Hogan colon rectal cancer; dx after age 50 Other ([id number]) Mother Maria De Jesus Hogan alcoholism Alcohol abuse Mother Maria De Jesus Hogan Stroke Mother Maria De Jesus Hogan Other ([phone]) Father Maria De Jesus Hogan h/o rheumatic fever, cardiac arrest due to bee sting Hypertension Father Maria De Jesus Hogan SOCIAL HISTORY Social History Socioeconomic History Marital status: Tobacco Use Smoking status: Every Day Current packs/day: 2.00 Average packs/day: 2.0 packs/day for 38.3 years (76.6 ttl pk-yrs) Types: Cigarettes Start date: 10/10/1985 Smokeless tobacco: Never Vaping Use Vaping status: Never Used Substance and Sexual Activity Alcohol use: Yes Comment: Detox home for a week 0 drinks 02/17/23, 6 tall boys/ daily 11/28/23 Drug use: No Sexual activity: Yes Partners: Female control/protection: Other Comment: live with Social Determinants of Health Financial Resource Strain: Low Risk (07/28/2023) Overall Financial Resource Strain (CARDIA) Difficulty of Paying Living Expenses: Not very hard Food Insecurity: No Food Insecurity (11/28/2023) Hunger Vital Sign Worried About Running Out of Food in the Last Year: Never true Ran Out of Food in the Last Year: Never true Transportation Needs: No Transportation Needs (11/28/2023) PRAPARE - Transportation Lack of Transportation (Medical): No Lack of Transportation (Non-Medical): No Physical Activity: Inactive (07/28/2023) Exercise Vital Sign Days of Exercise per Week: 0 days Minutes of Exercise per Session: 0 min Stress: Stress Concern Present (07/28/2023) [place] [employer] - Occupational Stress Questionnaire Feeling of Stress : To some extent Social Connections: Moderately Isolated (07/28/2023) Social Connection and Isolation Panel [NHANES] Frequency of Communication with Friends and Family: Twice a week Frequency of Social Gatherings with Friends and Family: Once a week Attends Synagogue Services: Never Active Member of Clubs or Organizations: No Attends Club or Organization Meetings: Never Marital Status: Intimate Partner Violence: Not At Risk (11/28/2023) Humiliation, Afraid, Rape, and Kick questionnaire Fear of Current or Ex-Partner: No Emotionally Abused: No Physically Abused: No Sexually Abused: No Housing Stability: Low Risk (07/28/2023) Housing Stability Vital Sign Unable to Pay for Housing in the Last Year: No Number of Places Lived in the Last Year: 1 Unstable Housing in the Last Year: No SCREENINGS [place] Coma Scale Best Eye Response: Spontaneous Best Verbal Response: Oriented Best Motor Response: Follows commands [place] Coma Scale Score: 15 PHYSICAL EXAM ED Triage Vitals [01/20/24 1722] Temp Heart Rate Resp BP 36.5 C (97.7 F) 103 20 (!) 142/89 SpO2 Temp Source Heart Rate Source Patient Position 94 % Temporal Monitor -- BP Location FiO2 (%) -- -- Physical Exam Vitals and nursing note reviewed. Constitutional: Appearance: Normal appearance. Comments: Intoxicated HENT: Head: Normocephalic and atraumatic. Mouth/Throat: Mouth: Mucous membranes are dry. Pharynx: Oropharynx is clear. Eyes: Comments: Injected sclera Cardiovascular: Rate and Rhythm: Regular rhythm. Tachycardia present. Pulmonary: Effort: Pulmonary effort is normal. No respiratory distress. Breath sounds: Wheezing present. Abdominal: General: There is distension. Palpations: Abdomen is soft. Tenderness: There is abdominal tenderness (Periumbilical). Musculoskeletal: Right lower leg: No edema. Left lower leg: No edema. Skin: General: Skin is warm and dry. Capillary Refill: Capillary refill takes less than 2 seconds. Coloration: Skin is not jaundiced. Neurological: General: No focal deficit present. Mental Status: He is alert and oriented to person, place, and time. DIAGNOSTIC RESULTS RADIOLOGY (Per Emergency Physician): Interpretation per the Radiologist below, if available at the time of this note: No orders to display LABS: Labs Reviewed CBC WITH AUTO DIFFERENTIAL - Abnormal Result Value Auto WBC 4.2 RBC 4.88 Hemoglobin 16.1 Hematocrit 46.0 MCV 94.3 MCH 33.0 MCHC 35.0 RDW 14.1 Platelets 156 MPV 8.8 (*) nRBC 0.0 Neutrophils Relative 53.2 Lymphocytes Relative 30.6 Monocytes Relative 14.2 (*) Eosinophils Relative 1.0 Basophils Relative 0.5 Immature Grans % 0.5 Neutrophils Absolute 2.2 Lymphocytes Absolute 1.3 Monocytes Absolute 0.6 Eosinophils Absolute 0.0 Basophils Absolute 0.0 Immature Grans Absolute 0.0 COMPREHENSIVE METABOLIC PANEL - Abnormal SODIUM 134 (*) POTASSIUM 4.1 CHLORIDE 93 (*) CARBON DIOXIDE 26 ANION GAP 15 (*) UREA NITROGEN 7 (*) CREATININE 0.59 (*) GLUCOSE 174 (*) CALCIUM 8.2 (*) AST (SGOT) 102 (*) ALT 106 (*) ALKALINE PHOSPHATASE 100 ALBUMIN 4.3 BILIRUBIN, TOTAL 0.5 TOTAL PROTEIN 7.3 eGFR >90.0 ETHANOL - Abnormal ETHANOL IN SER/PLAS 0.435 (*) Narrative: NOTE: This result is for medical treatment only. Analysis performed using non-forensic procedures. SARS-COV-2 ANTIGEN - Normal SARS-CoV-2 Antigen Negative DRUGS OF ABUSE AMPHETAMINE SCREEN Negative BARBITURATES SCREEN Negative BENZODIAZEPINE SCREEN Negative COCAINE METAB. SCREEN Negative METHADONE SCREEN Negative OPIATES SCREEN Negative OXYCODONE SCREEN Negative PHENCYCLIDINE SCREEN Negative Narrative: The expected value for all of the drugs listed above is Negative. The following drugs or drug groups have been screened for by Immunoassay at the following thresholds: Amphetamine class (1000 ng/mL) Barbiturates (200 ng/mL) Benzodiazepines (200 ng/mL) Cocaine (300 ng/mL) Methadone (300 ng/mL) Opiates (300 ng/mL) Oxycodone (100 ng/mL) PCP (25 ng/mL) NOTE: These results are for medical treatment only. Analysis performed using non-forensic procedures. POSITIVE results are NOT confirmed by a more specific alternative method unless requested. If confirmation is needed, request confirmation under separate order. All other labs were within normal range or not returned as of this dictation. EMERGENCY DEPARTMENT COURSE and DIFFERENTIAL DIAGNOSIS/MDM: Vitals: Vitals: 01/20/24 1722 01/20/24 1914 01/20/241918 BP: (!) 142/89 118/78 118/78 BP Location: Left arm Patient Position: Lying Pulse: 103 105 106 Resp: 20 20 Temp: 36.5 C (97.7 F) TempSrc: Temporal SpO2: 94% 94% The patient presented with a chief complaint of alcohol abuse. The differential diagnosis associated with this patient's presentation includes intoxication, electrolyte abnormality (hyponatremia). Our workup consisted of ordering/reviewing basic labs, ethanol, drug screen, COVID, EKG. Zofran 8 mg and 1 L normal saline bolus given for symptom relief. Workup reveals elevated alcohol at 0.435. He does have hyperglycemia and elevated liver enzymes, but nothing acutely concerning. EKG sinus rhythm without acute ischemia. At this time, I think patient would benefit from an inpatient stay for detox. Patient is agreeable to this. At this time, he is somewhat agitated and restless, I ordered 2 [address] for now. Dr[address] Luis Branch will admit the patient for detox. He recommends short acting agents for agitation until patient's blood alcohol level decreases. Diagnoses as of 01/20/242037 Alcohol abuse ED Medications managed: Medications LORazepam (Ativan) injection 2 mg (has no administration in time range) sodium chloride 0.9 % bolus 1,000 mL (1,000 mL IntraVENous New Bag 01/20/24 1800) ondansetron ODT (Zofran-ODT) disintegrating tablet 8 mg (8 mg Oral Given 01/20/24 1756) PROCEDURES: Unless otherwise noted below, none Procedures FINAL IMPRESSION 1. Alcohol abuse DISPOSITION Admit 01/20/2024 08:35:15 PM PATIENT REFERRED TO: No follow-up provider specified. DISCHARGE MEDICATIONS: New Prescriptions No medications on file (Comment: Please note this report has been produced using speech recognition software and may contain errors related to that system including errors in grammar, punctuation, and spelling, as well as words and phrases that may be inappropriate. If there are any questions or concerns please feel free to contact the dictating provider for clarification.) Dani Mike DO (electronically signed) Emergency Medicine Provider Dani Mike DO Resident 01/20/242027 Dani Mike DO Resident 01/20/242037 Cosigned by Triston Abraham MD at 01/20/2024 9:00 PM EDT [facility] 12-11-2023 Miscellaneous Notes Pt did not show for IOP assessment on this date. documented in this encounter [facility] 12-11-2023 Note Formatting of this n ote might be different from the original. Pt did not show for IOP assessment on this date. T [facility] 12-11-2023 Note Formatting of this n ote might be different from the original. Pt did not show for IOP assessment on this date. T [facility] 12-03-2023 Telephone encounter Note Recent Visits Date Type Provider Dept 12/26/22 Office Visit Lynda Rasheed MD [facility] Showing recent visits within past 365 days and meeting all other requirements Future Appointments Date Type Provider Dept 12/17/23 Appointment Lynda Rasheed MD [facility] Showing future appointments within next 90 days and meeting all other requirements Requested Prescriptions Pending Prescriptions Disp Refills gabapentin (Neurontin) 600 MG tablet 90 tablet 0 Sig: Take 1 tablet (600 mg) by mouth 3 times daily. albuterol 108 (90 Base) MCG/ACT inhaler 18 g 1 Sig: Inhale 2 puffs every 6 hours as needed for wheezing or shortness of breath. Provider: Lynda Rasheed MD Overdue for visit: Yes If yes - patient scheduled? Yes Most recent labs completed in chart? N/A Verified pharmacy: yes Verified day(s) supplied: yes Verified refill(s) needed (previous prescription showing no refills in chart): Yes Have you received any controlled medications from any other provider? No None [facility] 12-03-2023 Miscellaneous Notes Recent Visits Date Type Provider Dept 12/26/22 Office Visit Lynda Rasheed MD [facility] Showing recent visits within past 365 days and meeting all other requirements Future Appointments Date Type Provider Dept 12/17/23 Appointment Lynda Rasheed MD [facility] Showing future appointments within next 90 days and meeting all other requirements Requested Prescriptions Pending Prescriptions Disp Refills gabapentin (Neurontin) 600 MG tablet 90 tablet 0 Sig: Take 1 tablet (600 mg) by mouth 3 times daily. albuterol 108 (90 Base) MCG/ACT inhaler 18 g 1 Sig: Inhale 2 puffs every 6 hours as needed for wheezing or shortness of breath. Provider: Lynda Rasheed MD Overdue for visit: Yes If yes - patient scheduled? Yes Most recent labs completed in chart? N/A Verified pharmacy: yes Verified day(s) supplied: yes Verified refill(s) needed (previous prescription showing no refills in chart): Yes Have you received any controlled medications from any other provider? No None documented in this encounter [facility] 11-30-2023 Hospital course Narrative Discharge Summary Maria De Jesus Hogan : 1965 ADMIT DATE: 11/27/2023 DISCHARGE DATE: 11/30/2023 PRIMARY CARE PHYSICIAN: Lynda Rasheed VISIT STATUS: Admission CODE STATUS: Full Code DISCHARGE DIAGNOSES: Principal Problem: 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) HOSPITAL COURSE: Maria De Jesus Hogan is a 58 y.o. person who presents to the emergency department with concern for alcohol abuse and withdrawal. He reports he been drinking constant for the last several months. He did have a period of sobriety while he was in [facility]ent[facility] although appears that his last time in detox was earlier this year in June. He came in with serum ethanol level of 0.297 on 11/27. He was admitted for detox and addiction med was consulted. The following is a summary of his diagnosis management during his stay here at [facility]: Acute, acute on chronic, unstable/uncontrolled chronic problems/diagnoses: # Chronic Alcohol use disorder with acute withdrawal -was being detoxed here and has been on thiamine and folate as well as as needed Ativan as per addiction medicine. Addiction medicine will was consulted and was following. Patient also started on naltrexone per addiction medicine. Today he wanted to leave but his heart rate was still 112. Dr. Branch addiction medicine was notified as patient does not want to stay as he states his aunt just and he needs to leave. Dr. Branch states that patient would have to sign AGAINST MEDICAL ADVICE which he did and he subsequently left. However he is planning to follow-up for Vivitrol shot with Dr. Branch and also does plan for IOP meeting I believe next week that has been arranged by addiction medicine as well. # Nicotine dependance - was on nicotine gum here Stable chronic problems affecting care, new non-acute diagnoses: # Hx of CVA # Hx of Anxiety and depression # Chronic HTN # GERD Physical exam: Cardiovascular: S1/S2 heard, tachy Respiratory: Clear to auscultation bilaterally Abdomen: Soft, non-tender, non-distended bowel sounds positive Musculoskeletal: No obvious deformities seen Skin: No visible rashes or lesions. SIGNIFICANT DIAGNOSTIC STUDIES: As above CONSULTANTS: Addiction med RECOMMENDED NEXT STEPS: DISPOSITION: AMA FACILITY/HOME CARE AGENCY NAME: Follow up with Lynda Rasheed MD [address] [place] [address] [address] [facility] [phone] INSTRUCTIONS TO MA/SW: Please call patient on day after discharge (must document patient contacted within 2 business days of discharge). FOLLOW UP QUESTIONS FOR MA/SW: 1. Did you get medications filled and taking them as instructed from discharge? 2. Are you following your discharge instructions from your hospital stay? 3. Please confirm patient is scheduled for a follow up appointment within the above time frame. DISCHARGE TIME: > 30 minutes SIGNED: Saurabh Moran MD 11/30/2023, 10:50 AM documented in this encounter [facility] 11-30-2023 Note [facility] 11-30-2023 Nurse Note At 0900, patient wanted to talk to the physician about being discharged today. Physician spoke with patient. Physician notified this nurse that patient wants to leave AMA and would not be discharged today. At 1000, this nurse provided patient with AMA form. AMA form was signed by patient, and this nurse removed patient IV. [facility] 11-30-2023 Nurse Note At 0900, patient wanted to talk to the physician about being discharged today. Physician spoke with patient. Physician notified this nurse that patient wants to leave AMA and would not be discharged today. At 1000, this nurse provided patient with AMA form. AMA form was signed by patient, and this nurse removed patient IV. Patient presents seeking inpatient admission for alcohol detox. Drinks 4-5 Natty Daddys per day with last drink being sometime before patient arrived in the ED. Patient does not actually remember when he last drank. Wanted to get admitted today for detox because he felt himself getting sick and thought he was being unfair to his . Denies any other drug use. Smokes 1.5 ppd of tobacco. Multiple admissions for detox at [facility]. Is actually not allowed back on the detox unit at [facility] because of some incident that occurred in the past. States he tends to never follow up with therapy or other recommendations after detox. Completed IOP after which he was sober for a year, and it was the most sober he has ever been. Has been to AA but stated it did not work for him. Has been on Vivitrol before and stated that It's worth it. CIWA 10. Main withdrawal symptoms include anxiety and nausea. Patient given 97.2 mg of phenobarbital. Per chart review, it looks like he has been on Campral before. Hx of neuropathy/chronic pain. Takes Gabapentin. Denies pain. BP WNL. Denies having a history of any mental health issues. No daily meds. Denies HI or SI. States he wants to go to counseling/therapy to figure out what's in his head that causes him to continue to struggle with alcohol. States he likes to drink. Also likes the way it makes him feel normal. Does not like the withdrawals and feeling sick. Wants to get his mind right and figure out why he keeps struggling with alcohol. Wants to help his family and not . Family and health are major motivators for change. Change it 01/08 in terms of importance as well as confidence. Supports include family and . Triggers include struggling with his mental health. for 10 years. Has 3 of his own children and 4 step children. Lives with his . Unemployed. 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 No legal concerns. Has a valid ID. is able to transport patient because he does not currently drive. [employer] for health insurance coverage. Plan is to admit patient medically for detox at [facility]. Would also recommend that patient follow up with IOP on discharge. Patient seemed interested in Vivitrol. Patient provided with a list of treatment resources in addition to First Step, IOP, Vivitrol, and [facility] [employer] pamphlets. documented in this encounter [facility] 11-30-2023 Plan of care note The patient is Moderately Stable - Low risk of patient condition declining or worsening The patient's goals for the shift include discharge The clinical goals for the shift include safety Problem: Pain - Adult Goal: Verbalizes/displays adequate comfort level or baseline comfort level Outcome: Progressing Problem: Safety - Adult Goal: Free from fall injury Outcome: Progressing Problem: Discharge Planning Goal: Discharge to home or other facility with appropriate resources Outcome: Progressing [facility] 11-30-2023 Miscellaneous Notes The patient is Moderately Stable - Low risk of patient condition declining or worsening The patient's goals for the shift include discharge The clinical goals for the shift include safety Problem: Pain - Adult Goal: Verbalizes/displays adequate comfort level or baseline comfort level Outcome: Progressing Problem: Safety - Adult Goal: Free from fall injury Outcome: Progressing Problem: Discharge Planning Goal: Discharge to home or other facility with appropriate resources Outcome: Progressing The patient is Moderately Stable - Low risk of patient condition declining or worsening The patient's goals for the shift include Safety The clinical goals for the shift include Safety The patient is Moderately Stable - Low risk of patient condition declining or worsening The patient's goals for the shift include Safety and to feel better. The clinical goals for the shift include safety S/W, IOP IOP counselor did come up to see patient to discuss treatment program. Patient was scheduled for an appointment for 12/10 at 10A. Care Managment Initial Assessment Date: 11/29/2023 Patient Name: Maria De Jesus Hogan : 1965 Patient Information Source of Information: Patient Cognition/Language: WFL - Within Functional Limits Permission given to speak with patient sales and service representative/caregiver as indicated: Confirmation of Payer with patient/family: Yes Payer Name: Annemarie [facility] Union: No Confirmation of Primary Care Physician: Confirmed PCP Name: Dr. Lynda Rasheed Seen in last 2 years?: Yes Primary Caregiver: Self If assistance needed, confirmed caregiver ready, willing and able to care for patient at discharge: Yes Confirmed with: Per pt: June is able to assist at DC Living Arrangements Current Residence: House Number of Floors 3 (Colonial with basement) Number of Entry Steps: 2 Bed/Bath Levels: Both second floor Facility: Facility Name: Plan to Return: Lives with: Spouse/significant other, Children Support Systems: Spouse/significant other, Children, Family members, Friends/neighbors Activities of Daily Living Ambulation: Independent Bathing/Dressing: Independent Elimination/Continence/Toileting: Independent Feeding: Independent Who Assists with Activities of Daily Living: Instrumental Activities of Daily Living Prescription Coverage: Yes Pharmacy Used: [facility] Medication Management: Independent Transportation/Shopping: Independent Transportation Mode: Car Needs Assistance with Transportation at Discharge: No (States Judy is able to transport home) Meal Preparation: Independent Laundry/Cleaning: Independent Finances/Bill Paying: Independent Communication: Independent Types of Care Services/Equipment Utilized Care Services: Dialysis Type: NA Durable Medical Equipment: DME Provider: No DME Patient's Goal/Discharge Plan Patient expects to be discharged to: Home with IOP Discharge Planning Actions: Continue to follow Patient's Choice Rights and [employer] and Collaborative Relationships Disclosed as Indicated for Post-Acute Care: Interdisciplinary Team Engagement: Addiction Medicine Social Work Referral for: Additional Information: Met with patient at , introduced self and role. Patient is admitted to for alcohol withdrawal. Requesting detox, Add Med following. Awaiting Add Med recs. Patient lives with , she is able to transport patient home. Sees Dr. Lynda Rasheed (PCP) routinely. Has insurance and prescription coverage, uses [facility] in [place]. Patient denies any financial difficulties. Plan to DC home with ETOH treatment when medically stable. Patient verbalizes understanding and is in agreement with POC. Nancy Munroe RN [facility] Case Management/Care Coordination Note Date of Contact: 11/29/23 Start Time: 12:10 PM End Time: 12:20 PM Duration: 10 mins Type of Contact: [id number] Patient's Identified Case Management/Care Coordination Need(s) addressed (select all that apply): [facility] Treatment and Recovery Support Summary of Contact/Need at This Time: Pt was seen at bedside to schedule an appointment for an Addiction Medicine IOP assessment and to provide information about the program. Case Management Plan/Intervention: (select all that apply) Direct Referral Description of Case Management Plan/Intervention: Pt was given an appointment card for an IOP assessment on 12/11/23 at 10:00 AM. Pt also received a brochure briefly describing services. Staff discussed location of program, types of programming, length of groups and pt's previous experiences with IOP through Addiction Medicine at [facility]. Note Any Anticipated Barriers: Pt stated he relies on his for transportation and would like evening programming to accommodate her work schedule. Patient's response to Plan/Intervention (or, if applicable, outcome of Case Management collateral contact/referral): Pt discussed having several relapses in the past with alcohol but felt he was ready to begin services at this time. Progress Towards Case Management Goal(s): [] None [] Minimal [] Moderate [] Significant [x] Case Management Goal(s) Met Additional Comments: Pt stated he had recently gone through Detox at [facility] and other IOP services and it had helped in the past. documented in this encounter [facility] 11-30-2023 Plan of care note The patient is Moderately Stable - Low risk of patient condition declining or worsening The patient's goals for the shift include Safety The clinical goals for the shift include Safety [facility] 11-29-2023 Plan of care note The patient is Moderately Stable - Low risk of patient condition declining or worsening The patient's goals for the shift include Safety and to feel better. The clinical goals for the shift include safety [facility] 11-29-2023 Note Formatting of this n ote might be different from the original. S/W, IOP IOP counselor did come up to see patient to discuss treatment program. Patient was scheduled for an appointment for 12/10 at 10A. T [facility] 11-29-2023 Note Formatting of this n ote might be different from the original. S/W, IOP IOP counselor did come up to see patient to discuss treatment program. Patient was scheduled for an appointment for 12/10 at 10A. [facility] 11-29-2023 Note Formatting of this n ote might be different from the original. Care Managment Initial Assessment Date: 11/29/2023 Patient Name: Maria De Jesus Hogan : 1965 Patient Information Source of Information: Patient Cognition/Language: WFL - Within Functional Limits Permission given to speak with patient sales and service representative/caregiver as indicated: Confirmation of Payer with patient/family: Yes Payer Name: Annemarie [employer] Union: No Confirmation of Primary Care Physician: Confirmed PCP Name: Dr. Lynda Rasheed Seen in last 2 years?: Yes Primary Caregiver: Self If assistance needed, confirmed caregiver ready, willing and able to care for patient at discharge: Yes Confirmed with: Per pt: June is able to assist at DC Living Arrangements Current Residence: House Number of Floors 3 (Colonial with basement) Number of Entry Steps: 2 Bed/Bath Levels: Both second floor Facility: Facility Name: Plan to Return: Lives with: Spouse/significant other, Children Support Systems: Spouse/significant other, Children, Family members, Friends/neighbors Activities of Daily Living Ambulation: Independent Bathing/Dressing: Independent Elimination/Continence/Toileting: Independent Feeding: Independent Who Assists with Activities of Daily Living: Instrumental Activities of Daily Living Prescription Coverage: Yes Pharmacy Used: [facility] in [place] Medication Management: Independent Transportation/Shopping: Independent Transportation Mode: Car Needs Assistance with Transportation at Discharge: No (States Judy is able to transport home) Meal Preparation: Independent Laundry/Cleaning: Independent Finances/Bill Paying: Independent Communication: Independent Types of Care Services/Equipment Utilized Care Services: Dialysis Type: NA Durable Medical Equipment: DME Provider: No DME Patient's Goal/Discharge Plan Patient expects to be discharged to: Home with IOP Discharge Planning Actions: Continue to follow Patient's Choice Rights and [employer] and Collaborative Relationships Disclosed as Indicated for Post-Acute Care: Interdisciplinary Team Engagement: Addiction Medicine Social Work Referral for: Additional Information: Met with patient at , introduced self and role. Patient is admitted to for alcohol withdrawal. Requesting detox, Add Med following. Awaiting Add Med recs. Patient lives with , she is able to transport patient home. Sees Dr. Lynda Rasheed (PCP) routinely. Has insurance and prescription coverage, uses [facility] in [place]. Patient denies any financial difficulties. Plan to DC home with ETOH treatment when medically stable. Patient verbalizes understanding and is in agreement with POC. Nancy Munroe RN [facility] 11-29-2023 Note Formatting of this n ote might be different from the original. Care Managment Initial Assessment Date: 11/29/2023 Patient Name: Maria De Jesus Hogan : 1965 Patient Information Source of Information: Patient Cognition/Language: WFL - Within Functional Limits Permission given to speak with patient sales and service representative/caregiver as indicated: Confirmation of Payer with patient/family: Yes Payer Name: Annemarie W[employer] : No Confirmation of Primary Care Physician: Confirmed PCP Name: Dr. Lynda Rasheed Seen in last 2 years?: Yes Primary Caregiver: Self If assistance needed, confirmed caregiver ready, willing and able to care for patient at discharge: Yes Confirmed with: Per pt: Judy is able to assist at DC Living Arrangements Current Residence: House Number of Floors 3 (Colonial with basement) Number of Entry Steps: 2 Bed/Bath Levels: Both second floor Facility: Facility Name: Plan to Return: Lives with: Spouse/significant other, Children Support Systems: Spouse/significant other, Children, Family members, Friends/neighbors Activities of Daily Living Ambulation: Independent Bathing/Dressing: Independent Elimination/Continence/Toileting: Independent Feeding: Independent Who Assists with Activities of Daily Living: Instrumental Activities of Daily Living Prescription Coverage: Yes Pharmacy Used: [facility] Medication Management: Independent Transportation/Shopping: Independent Transportation Mode: Car Needs Assistance with Transportation at Discharge: No (States Judy is able to transport home) Meal Preparation: Independent Laundry/Cleaning: Independent Finances/Bill Paying: Independent Communication: Independent Types of Care Services/Equipment Utilized Care Services: Dialysis Type: NA Durable Medical Equipment: DME Provider: No DME Patient's Goal/Discharge Plan Patient expects to be discharged to: Home with IOP Discharge Planning Actions: Continue to follow Patient's Choice Rights and [employer] and Collaborative Relationships Disclosed as Indicated for Post-Acute Care: Interdisciplinary Team Engagement: Addiction Medicine Social Work Referral for: Additional Information: Met with patient at , introduced self and role. Patient is admitted to for alcohol withdrawal. Requesting detox, Add Med following. Awaiting Add Med recs. Patient lives with , she is able to transport patient home. Sees Dr. Lynda Rasheed (PCP) routinely. Has insurance and prescription coverage, uses [facility] in [place]. Patient denies any financial difficulties. Plan to DC home with ETOH treatment when medically stable. Patient verbalizes understanding and is in agreement with POC. Nancy Munroe RN [facility] 11-29-2023 Note Formatting of this n ote might be different from the original. Outpatient [facility] Services Case Management/Care Coordination Note Date of Contact: 11/29/23 Start Time: 12:10 PM End Time: 12:20 PM Duration: 10 mins Type of Contact: [id number] Patient's Identified Case Management/Care Coordination Need(s) addressed (select all that apply): [facility] Treatment and Recovery Support Summary of Contact/Need at This Time: Pt was seen at bedside to schedule an appointment for an Addiction Medicine IOP assessment and to provide information about the program. Case Management Plan/Intervention: (select all that apply) Direct Referral Description of Case Management Plan/Intervention: Pt was given an appointment card for an IOP assessment on 12/11/23 at 10:00 AM. Pt also received a brochure briefly describing services. Staff discussed location of program, types of programming, length of groups and pt's previous experiences with IOP through Addiction Medicine at [facility]. Note Any Anticipated Barriers: Pt stated he relies on his for transportation and would like evening programming to accommodate her work schedule. Patient's response to Plan/Intervention (or, if applicable, outcome of Case Management collateral contact/referral): Pt discussed having several relapses in the past with alcohol but felt he was ready to begin services at this time. Progress Towards Case Management Goal(s): [] None [] Minimal [] Moderate [] Significant [x] Case Management Goal(s) Met Additional Comments: Pt stated he had recently gone through Detox at [facility] and other IOP services and it had helped in the past. [facility] 11-29-2023 Note Formatting of this n ote might be different from the original. Outpatient Behavioral Health Services Case Management/Care Coordination Note Date of Contact: 11/29/23 Start Time: 12:10 PM End Time: 12:20 PM Duration: 10 mins Type of Contact: [id number] Patient's Identified Case Management/Care Coordination Need(s) addressed (select all that apply): [facility] Treatment and Recovery Support Summary of Contact/Need at This Time: Pt was seen at bedside to schedule an appointment for an Addiction Medicine IOP assessment and to provide information about the program. Case Management Plan/Intervention: (select all that apply) Direct Referral Description of Case Management Plan/Intervention: Pt was given an appointment card for an IOP assessment on 12/11/23 at 10:00 AM. Pt also received a brochure briefly describing services. Staff discussed location of program, types of programming, length of groups and pt's previous experiences with IOP through Addiction Medicine at [facility]. Note Any Anticipated Barriers: Pt stated he relies on his for transportation and would like evening programming to accommodate her work schedule. Patient's response to Plan/Intervention (or, if applicable, outcome of Case Management collateral contact/referral): Pt discussed having several relapses in the past with alcohol but felt he was ready to begin services at this time. Progress Towards Case Management Goal(s): [] None [] Minimal [] Moderate [] Significant [x] Case Management Goal(s) Met Additional Comments: Pt stated he had recently gone through Detox at [facility] and other IOP services and it had helped in the past. [facility] 11-29-2023 History of Present illness Narrative Hospitalist Progress Note 11/29/2023 [phone]: Please page me ([phone]) for patient care issues. [phone]: Please page [facility] Hospitalist for any issues. Subjective: Admit Date: 11/27/2023 PCP: Lynda Rasheed MD Room#: S5-472/Y9-708 A Interval History: Patient states he is feeling pretty good today. Denies feeling anxious or jittery right now. Denies chest pain or sob. No abdominal pain, nausea, vomiting. No fevers or chills. He denies any new complaints Adult diet Regular @[id number]@ 24HR INTAKE/OUTPUT: No intake or output data in the 24 hours ending 11/29/23 1130 Past Medical History: Past Medical History: Diagnosis Date Alcohol abuse Alcohol dependence with withdrawal (HCC) 08/31/2019 Alcohol intoxication without use disorder, uncomplicated (HCC) 10/01/2019 Alcohol use disorder 09/10/2022 Alcohol withdrawal syndrome with complication (HCC) 09/27/2021 Alcohol withdrawal syndrome without complication (HCC) Alcohol withdrawal, uncomplicated (HCC) 08/31/2019 Alcohol withdrawal, with unspecified complication (HCC) 10/02/2019 Alcohol withdrawal, with unspecified complication (HCC) 10/02/2019 Alcoholism (CMS/HCC) (HCC) Anxiety Arthritis Maria De Jesus Cerebral artery occlusion with cerebral infarction (HCC) Cerebrovascular disease Depression GERD (gastroesophageal reflux disease) Maria De Jesus Hypertension Insomnia LABS: CBC: Recent Labs 11/27/23 2223 11/28/23 0637 WBC 6.0 4.9 RBC 4.72 4.34* HGB 15.1 13.7 HCT 44.2 40.9 MCV 93.6 94.2 RDW 14.5 14.4 PLT 248 210 BMP: Recent Labs 11/27/23 2304 11/28/23 0637 NA 139 135 K 4.2 4.0 CL 101 99 CO2 27 27 BUN 7* 7* CREATININE 0.64* 0.62* GLUCOSE 97 108* CALCIUM 8.7 8.4 ANIONGAP 11 9 LIVER PROFILE: Recent Labs 11/27/23 2304 AST 42 ALT 27 BILITOT 0.4 ALKPHOS 99 PROT 7.3 PT/INR: No results for input(s): PROTIME, INR in the last 72 hours. CARDIAC ENZYMES: No results for input(s): TROPONINI in the last 72 hours. Procalcitonin: No results found for: PROCAL COVID-19 PCR: No results for input(s): COVID19 in the last 72 hours. Objective: Vitals: BP (!) 156/110 Pulse 96 Temp 36.5 C (97.7 F) (Temporal) Resp 18 Ht 5' 11 (1.803 m) Wt 230 lb (104 kg) SpO2 96% BMI 32.08 kg/m Pulse Ox: SpO2 Av % Min: 92 % Max: 97 % Supplemental O2: O2 Flow Rate (L/min): 4 L/min General appearance: No apparent distress, appears stated age, HEENT: Eyes: No scleral icterus Oral: Tongue is semi-moist Cardiovascular: S1/S2 heard, tachy Respiratory: Clear to auscultation bilaterally Abdomen: Soft, non-tender, non-distended bowel sounds positive Musculoskeletal: No obvious deformities seen Skin: No visible rashes or lesions. Medications: enoxaparin, 40 mg, SubCUTAneous, Daily folic acid, 1 mg, Oral, Daily gabapentin, 600 mg, Oral, TID pantoprazole, 40 mg, Oral, qAM AC thiamine, 100 mg, Oral, Daily Assessment Acute, acute on chronic, unstable/uncontrolled chronic problems/diagnoses: # Chronic Alcohol use disorder with acute withdrawal # Nicotine dependance - has nicotine gum Stable chronic problems affecting care, new non-acute diagnoses: # Hx of CVA # Hx of Anxiety and depression # Chronic HTN # GERD Plan -Addiction medicine following and managing withdrawal. They recommend to continue as needed Ativan per CIVA protocol. Also, Addiction med states patient is open to IOP after he is chemically detoxed. They will arrange for counselor to speak with him. I spoke with . He states he is plan for possible discharge tomorrow. -Continue thiamine and folate. Extended Emergency Contact Information Primary Emergency Contact: Samira,April Mobile Relation: Spouse Saurabh Moran MD Division of Hospitalist Medicine Inpatient Medical Services[facility]: Epic chat Nutrition rescreen completed. Chart reviewed. Patient to be monitored and followed by the diet optical laboratory technician. Images from the original note were not included. ADDICTION MEDICINE PROGRESS NOTE Patient: Maria De Jesus Hogan Problem List: Principal Problem: 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) SUBJECTIVE Chief Complaint Patient presents with Alcohol Problem Pt c/o ETOH abuse. States last drink was a couple hours. Pt states 8 tall boys a day typically. Pt states he's having difficulty thinking straight. Last 4 CIWA scores per RN assessments 0 (11/27) @ 1945 0 (11/27) @ 1720 3 (11/27) @ 1639 8 (11/27) @ 1528 14 (11/27) @ 1411 Interim History Maria De Jesus Hogan is a 58 y.o. C male with a PMH of AUD, TUD, BPH and Lombardo's esophagus who was admitted for Severe alcohol use disorder with acute intoxication. Addiction medicine was consulted to assist with chemical detox. Patient seen and examined this AM. He reports that he has been doing very well since last night. Notes he slept well and ate his entire breakfast this morning. Reports some heart racing and mild sweating but otherwise denies any headache, changes in vision, rhinorrhea, sore throat, N/V, abd pain, diarrhea, constipation, urinary symptoms, CP or SOB. No SI/HI or AVH reported. Review of Systems A 14 system ROS was collected and is negative unless otherwise noted above. OBJECTIVE Vitals Vitals: 11/28/23 1639 11/28/23 1709 11/28/23 1945 11/29/23 0749 BP: 139/77 159/100 152/91 (!) 156/110 BP Location: Patient Position: Pulse: 109 105 110 96 Resp: 18 Temp: 36.2 C (97.1 F) 36.4 C (97.5 F) 36.5 C (97.7 F) TempSrc: Temporal Temporal Temporal SpO2: 95% 94% 96% Weight: Height: Physical Exam Constitutional: Appearance: Normal appearance. HENT: Head: Normocephalic and atraumatic. Nose: Nose normal. Mouth/Throat: Mouth: Mucous membranes are moist. Eyes: Extraocular Movements: Extraocular movements intact. Pupils: Pupils are equal, round, and reactive to light. Cardiovascular: Rate and Rhythm: Regular rhythm. Tachycardia present. Pulses: Normal pulses. Heart sounds: Normal heart sounds. Pulmonary: Effort: Pulmonary effort is normal. Comments: Diminished over b/l bases. Abdominal: General: Bowel sounds are normal. Palpations: Abdomen is soft. Musculoskeletal: General: Normal range of motion. Cervical back: Normal range of motion and neck supple. Skin: General: Skin is dry. Neurological: General: No focal deficit present. Mental Status: He is alert and oriented to person, place, and time. Psychiatric: Mood and Affect: Mood normal. Behavior: Behavior normal. Thought Content: Thought content normal. Judgment: Judgment normal. Medications Home Meds Current Outpatient Medications Medication Instructions acamprosate (CAMPRAL) 333 mg, Oral, 3 times daily, Do not crush, chew, or split. albuterol 108 (90 Base) MCG/ACT inhaler 2 puffs, Inhalation, Every 6 hours PRN calcipotriene (Dovonex) 0.005 % cream Topical, 2 times daily gabapentin (NEURONTIN) 600 mg, Oral, 3 times daily melatonin 5 mg, Oral, Nightly Multiple Vitamins tablet 1 tablet, Oral, Daily nicotine (Nicoderm, Step 2) 14 MG/24HR patch 1 patch, TransDERmal, Daily pantoprazole (PROTONIX) 40 mg, Oral, Daily before breakfast Thiamine Mononitrate (VITAMIN B1) 100 mg, Oral, Daily Scheduled Inpatient Meds enoxaparin, 40 mg, SubCUTAneous, Daily folic acid, 1 mg, Oral, Daily gabapentin, 600 mg, Oral, TID pantoprazole, 40 mg, Oral, qAM AC thiamine, 100 mg, Oral, Daily PRN Inpatient Meds PRN medications: acetaminophen OR acetaminophen, aluminum & magnesium hydroxide-simethicone OR calcium carbonate, LORazepam OR LORazepam OR LORazepam OR LORazepam OR LORazepam OR LORazepam OR LORazepam OR LORazepam, nicotine polacrilex, ondansetron ODT OR ondansetron, polyethylene glycol (PEG) 3350 Continuous Inpatient Infusions Recent Imaging ECG 12 lead Result Date: 11/28/2023 Sinus tachycardia Probable left atrial enlargement RSR' in V1 or V2, right VCD or RVH Borderline T abnormalities, anterior leads No significant changes compared to 07/27/2023 Electronically Signed On 11-28-2023 04:56:24 EDT by Val Torres Labs CBC: Recent Labs 11/27/23222211/28/23 0637 WBC 6.0 4.9 HGB 15.1 13.7 PLT 248 210 MCV 93.6 94.2 RDW 14.5 14.4 BMP: Recent Labs 11/27/23230311/28/23 0637 NA 139 135 K 4.2 4.0 CL 101 99 CO2 27 27 BUN 7* 7* CREATININE 0.64* 0.62* CALCIUM 8.7 8.4 MG 2.0 -- Liver Profile: Recent Labs 11/27/232303 AST 42 ALT 27 BILITOT 0.4 ALKPHOS 99 PROT 7.3 Glucose: Recent Labs 11/27/23230311/28/23 0637 GLUCOSE 97 108* Lactic Acid: No lab exists for component: LACTA Cardiac Injury Profile: No results for input(s): CKTOTAL, CKMB, TROPONINI in the last 72 hours. Last 24 Hours: No results found for this or any previous visit (from the past 24 hour(s)). ASSESSMENT & PLAN Alcohol use disorder Counseled patient on biopsychosocial consequences of substance use. Encouraged professional chemical dependency treatment. Encouraged 12 step meeting attendance. Follow up plan for addiction management discussed with patient: Patient is interested in IOP. IOP counselor to discuss IOP with patient today for potential enrollment. Patient is also interested in restarting Vivitrol which he has had success with in the past. Alcohol withdrawal Last use of Alcohol was on Day of admission. LFTs WNL BAL 0.297 uTox unremarkable Ativan taper to manage Alcohol withdrawal symptoms. Ativan 1mg q 1 hours PRN for CIWA 8 to 10. Ativan 2mg q 1 hours PRN for CIWA 11 to 15. Ativan 3mg q 1 hours PRN for CIWA 16 to 20. Ativan 4mg q 1 hours PRN for CIWA >20. CIWA scores per unit protocol. Encouraged to participate in all unit activities. Naltrexone 50mg PO Daily to start tomorrow (11/30/23). Tobacco use disorder Smokes 1 to 1.5 packs per day Notes that he is not interested in quitting at this time. Does report intent to cut down to 1 pack or less per day Continue NRT: Lozenge 4mg Q2H PRN for cravings Gum 2mg Q2H PRN for cravings Disposition: Discharge anticipated in 1-2 days. This is pending: Resolution of withdrawal symptoms. Medical stabilization as per primary team. Tray Setter to coordinate aftercare. Patient to follow up with me in office on December 06 2023 at 10:00 AM for Vivitrol injection - LOCATION: [facility]. Will follow. I reviewed the patient's medical record, and reviewed test results. I educated and then counseled the patient on any substance use disorder or chemical dependency related issues. This included a face to face evaluation and physical examination, and coordinating care on a substance use disorder treatment plan as well as documenting clinical information on the day of visit. documented in this encounter [facility] 11-28-2023 Emergency department Note Unit made aware of impending patient transport to the unit via broadcast. Judy Higgins RN 11/28/23 1650 [facility] 11-28-2023 Emergency department Note Unit made aware of impending patient transport to the unit via broadcast. Judy Higgins RN 11/28/23 1650 O2 turned up to 4L NC due to low saturation in 70's while sleeping Gris Dillon RN 11/28/23 1500 2L NC applied due to O2 sat in 80's while sleeping Gris Dillon RN 11/28/23 1425 The following are the next steps in your Substance use Treatment Plan: Get admitted to detox then Vivitrol, IOP, and therapy afterwards. Please make sure you follow up after getting discharged from the hospital. Below are additional resources that you may find beneficial in your treatment: 12-Step: Heroin Anonymous : Dayne Gray: [phone], Luis Fernando Cloud: [phone] Narcotics Anonymous: 888-GET_HOPE (628-318-0668) NextPrinciples.ShareHows Alcohol Anonymous: ZeniMaxaa.org Cocaine Anonymous: https://www.MedClimate.org/meetings/ak eranmarino, NarAnon: 250.550.8261: 12-step program for families & friends of people with addiction. CRISIS: Homeless Hotline: 920.157.6668 Domestic Violence help line anytime: 302.577.3588 Crisis Hotline: 22/10- 939.321.2042 ADM Addiction Helpline: 278.153.5707 (available 8:30 AM to 4:00 PM ) 2-1-1 2-1-1 helps people across [facility] find local resources when they don't know where to turn for help. We are available 24 hours a day, 7 days a week. For help, simply dial 05-02- to speak to one of our trained professionals. METHADONE TREATMENT: [facility], [place] [phone] [facility] [place], [place] [phone] [facility], [place] [phone] [place], [place] [phone] [facility]- [phone] ext. [phone] [facility] ([place])- [phone] DETOX TREATMENT: [facility] Crisis Center: anytime @ [phone] for alcohol & drug addiction help. [facility], [place] [phone] [facility] coordination: [phone] (Medicare not accepted) [facility] [place]: [phone] ([place] Medicaid not accepted) [facility], [place]: [phone] ([place] Medicaid not accepted) [facility] [place]: [phone] (Will Coordinate Transportation) [facility] [place]: [phone] [facility] [place]: [phone], [facility] [place]: [phone] [place], [place] [phone] [facility] [place]: [phone] (Will Coordinate Transportation) [place], [place] [phone] ext. [phone] [place], [place] (pt. must be medically cleared prior to admission in ED) [place], [place] [phone] [facility] [place]: [phone] ([place] Medicaid not accepted) [facility] [place], [place] [phone] (Will Coordinate Transportation) [phone] OUTPATIENT TREATMENT: [facility] Addiction Medicine @ [facility] [place] [phone] [facility]: Inpatient or Outpatient- [phone] 1st Step MAT Program @ [facility] ED: [phone] 1st Step MAT Program @ [facility] ED: [phone] 1st Step MAT Program @ [facility] ED: [phone], INTENSIVE OUTPATIENT PROGRAMS @ [facility] [place] [phone] [place], [place] [phone] [facility] [place], [place] [phone] [facility] [place], [place] [phone] [facility]: [phone] [facility], [place], [place] [phone] [facility]: [phone], [place]: [phone] [facility], [place], [place]: [phone] [facility], [place]: [phone], [place]: [phone] [facility], [place]: [phone]; [place]: [phone] [place] [facility] (Emphasis on minorities): [email or web address]://www.[facility], [facility], [place], [place] [phone] [facility] SERVICES: [place] Jarred Arreaga & [place]: [phone] [place] Mervin Schultz [place], [place] [phone] [facility], [place] [phone] [facility] [phone] [facility] SERVICES: [address] (180): [place], [place] [phone] [place] [facility] SHEETS & Jayy: [phone] RESIDENTIAL TREATMENT FACILITIES: [facility], [place], [place] [phone] (admission coordinated by ADM Gurvinder Landers ext [phone]) [facility], [place], [place]: [phone]; Men's services inpt. & women services - Outpt. [place], [place] [phone] [facility] [place], [place] [phone] [facility] [place], [place] [phone] [facility], [place], [place] [phone] [facility] [place], [place] [phone] [facility] [place], [place] [phone] [facility] - [place], [place] [phone] [facility], [place], [place], [facility] [phone] [facility] [employer] Installer service: [phone] [facility]: [phone] ext. [phone] Medicaid Health Coverage: DOCUSYSDuc S: [phone] Larry Avila RN 11/27/23 5584 Detox rules read and signed by patient. Witnessed by this RN. Larry Avila RN 11/27/23 8905 EMERGENCY DEPARTMENT ENCOUNTER Pt Name: Maria De Jesus Hogan Birthdate 1965 Date of evaluation: 11/27/2023 ED Provider: Steve Demarco MD CHIEF COMPLAINT Chief Complaint Patient presents with Alcohol Problem Pt c/o ETOH abuse. States last drink was a couple hours. Pt states 8 tall boys a day typically. Pt states he's having difficulty thinking straight. HISTORY OF PRESENT ILLNESS I wore appropriate PPE for the entirety of this encounter. HPI Maria De Jesus Hogan is a 58 y.o. person who presents to the emergency department with concern for alcohol abuse and withdrawal. He reports he been drinking constant for the last several months. He did have a period of sobriety while he was in penitentiary although appears that his last time in detox was earlier this year in June Nursing Notes were reviewed. Limitations to history: None Outside historians: None REVIEW OF SYSTEMS Review of Systems Neurological: Positive for tremors. PAST MEDICAL HISTORY Past Medical History: Diagnosis Date Alcohol abuse Alcohol dependence with withdrawal (HCC) 08/31/2019 Alcohol intoxication without use disorder, uncomplicated (HCC) 10/01/2019 Alcohol use disorder 09/10/2022 Alcohol withdrawal syndrome with complication (HCC) 09/27/2021 Alcohol withdrawal syndrome without complication (HCC) Alcohol withdrawal, uncomplicated (HCC) 08/31/2019 Alcohol withdrawal, with unspecified complication (HCC) 10/02/2019 Alcohol withdrawal, with unspecified complication (HCC) 10/02/2019 Alcoholism (CMS/HCC) (HCC) Anxiety Arthritis Maria De Jesus Cerebral artery occlusion with cerebral infarction (HCC) Cerebrovascular disease Depression GERD (gastroesophageal reflux disease) Maria De Jesus Hypertension Insomnia SURGICAL HISTORY Past Surgical History: Procedure Laterality Date COLONOSCOPY 06/10/2020 EGD/Dr Madison/AMANDA CYST REMOVAL face EGD (HISTORICAL) 07/23/2022 Dr. Estrella[facility] SMALL INTESTINE SURGERY UPPER GASTROINTESTINAL ENDOSCOPY 09/27/2021 normal WISDOM TOOTH EXTRACTION CURRENT MEDICATIONS Discharge Medication List as of 11/30/2023 10:39 AM CONTINUE these medications which have NOT CHANGED Details acamprosate (Campral) 333 MG EC tablet Take 1 tablet (333 mg) by mouth 3 times daily. Do not crush, chew, or split., Starting Sat07/31/2023, Until Sat08/30/2023, Normal albuterol 108 (90 Base) MCG/ACT inhaler Inhale 2 puffs every 6 hours as needed for wheezing or shortness of breath., Starting Sat08/01/2023, Normal calcipotriene (Dovonex) 0.005 % cream Apply topically 2 times daily., Starting Sat06/26/2023, Normal gabapentin (Neurontin) 600 MG tablet Take 1 tablet (600 mg) by mouth 3 times daily., Starting Sat08/01/2023, Normal melatonin 5 MG tablet Take 1 tablet (5 mg) by mouth Nightly., Starting Sat06/26/2023, Normal Multiple Vitamins tablet Take 1 tablet by mouth daily., Starting Sat04/24/2023, Normal nicotine (Nicoderm, Step 2) 14 MG/24HR patch Place 1 patch on the skin daily. Do not start before October 23, 2022., Starting Sat10/23/2022, Print pantoprazole (ProtoNix) 40 MG EC tablet Take 1 tablet (40 mg) by mouth every morning (before breakfast)., Starting Sat05/27/2023, Normal Thiamine Mononitrate (Vitamin B1) 100 MG tablet Take 1 tablet (100 mg) by mouth daily., Starting Sat12/10/2022, Normal ALLERGIES Bee venom, Nickel, and Tramadol FAMILY HISTORY Family History Problem Relation Name Age of Onset Depression Sister Maria De Jesus Hogan Other ([id number]) Sister Maria De Jesus Hogan agoraphobia Arthritis Sister Maria De Jesus Hogan Cancer Mother Maria De Jesus Hogan colon rectal cancer; dx after age 50 Other ([id number]) Mother Maria De Jesus Hogan alcoholism Alcohol abuse Mother Maria De Jesus Hogan Stroke Mother Maria De Jesus Hogan Other ([id number]) Father Maria De Jesus Hogan h/o rheumatic fever, cardiac arrest due to bee sting Hypertension Father Maria De Jesus Hogan SOCIAL HISTORY Social History Socioeconomic History Marital status: Tobacco Use Smoking status: Every Day Current packs/day: 2.00 Average packs/day: 2.0 packs/day for 38.1 years (76.3 ttl pk-yrs) Types: Cigarettes Start date: 10/10/1985 Smokeless tobacco: Never Vaping Use Vaping status: Never Used Substance and Sexual Activity Alcohol use: Yes Comment: Detox home for a week 0 drinks 02/17/23, 6 tall boys/ daily 11/28/23 Drug use: No Sexual activity: Yes Partners: Female control/protection: Other Comment: live with Social Determinants of Health Financial Resource Strain: Low Risk (07/28/2023) Overall Financial Resource Strain (CARDIA) Difficulty of Paying Living Expenses: Not very hard Food Insecurity: No Food Insecurity (11/28/2023) Hunger Vital Sign Worried About Running Out of Food in the Last Year: Never true Ran Out of Food in the Last Year: Never true Transportation Needs: No Transportation Needs (11/28/2023) PRAPARE - Transportation Lack of Transportation (Medical): No Lack of Transportation (Non-Medical): No Physical Activity: Inactive (07/28/2023) Exercise Vital Sign Days of Exercise per Week: 0 days Minutes of Exercise per Session: 0 min Stress: Stress Concern Present (07/28/2023) [place] of Occupational Health - Occupational Stress Questionnaire Feeling of Stress : To some extent Social Connections: Moderately Isolated (07/28/2023) Social Connection and Isolation Panel [NHANES] Frequency of Communication with Friends and Family: Twice a week Frequency of Social Gatherings with Friends and Family: Once a week Attends Synagogue Services: Never Active Member of Clubs or Organizations: No Attends Club or Organization Meetings: Never Marital Status: Intimate Partner Violence: Not At Risk (11/28/2023) Humiliation, Afraid, Rape, and Kick questionnaire Fear of Current or Ex-Partner: No Emotionally Abused: No Physically Abused: No Sexually Abused: No Housing Stability: Low Risk (07/28/2023) Housing Stability Vital Sign Unable to Pay for Housing in the Last Year: No Number of Places Lived in the Last Year: 1 Unstable Housing in the Last Year: No SCREENINGS [place] Coma Scale Best Eye Response: Spontaneous Best Verbal Response: Oriented Best Motor Response: Follows commands Mylene Coma Scale Score: 15 PHYSICAL EXAM ED Triage Vitals [11/27/232023] Temp Heart Rate Resp BP 37.2 C (98.9 F) 108 19 116/88 SpO2 Temp Source Heart Rate Source Patient Position 93 % Temporal Monitor -- BP Location FiO2 (%) -- -- Physical Exam Vitals and nursing note reviewed. Constitutional: General: He is not in acute distress. Appearance: He is well-developed. HENT: Head: Normocephalic and atraumatic. Eyes: Conjunctiva/sclera: Conjunctivae normal. Cardiovascular: Rate and Rhythm: Normal rate and regular rhythm. Heart sounds: No murmur heard. Pulmonary: Effort: Pulmonary effort is normal. No respiratory distress. Breath sounds: Normal breath sounds. Abdominal: Palpations: Abdomen is soft. Tenderness: There is no abdominal tenderness. Musculoskeletal: General: No swelling. Cervical back: Neck supple. Skin: General: Skin is warm and dry. Capillary Refill: Capillary refill takes less than 2 seconds. Neurological: Mental Status: He is alert. Comments: Mild tremoring Psychiatric: Mood and Affect: Mood normal. DIAGNOSTIC RESULTS RADIOLOGY (Per Emergency Physician): Interpretation per the Radiologist below, if available at the time of this note: No orders to display EKG Interpretation: LABS: Labs Reviewed COMPREHENSIVE METABOLIC PANEL - Abnormal Result Value SODIUM 139 POTASSIUM 4.2 CHLORIDE 101 CARBON DIOXIDE 27 ANION GAP 11 UREA NITROGEN 7 (*) CREATININE 0.64 (*) GLUCOSE 97 CALCIUM 8.7 AST (SGOT) 42 ALT 27 ALKALINE PHOSPHATASE 99 ALBUMIN 4.3 BILIRUBIN, TOTAL 0.4 TOTAL PROTEIN 7.3 eGFR >90.0 ETHANOL - Abnormal ETHANOL IN SER/PLAS 0.297 (*) Narrative: NOTE: This result is for medical treatment only. Analysis performed using non-forensic procedures. CBC (HEMOGRAM) - Abnormal Auto WBC 6.0 RBC 4.72 Hemoglobin 15.1 Hematocrit 44.2 MCV 93.6 MCH 32.0 MCHC 34.2 RDW 14.5 Platelets 248 MPV 8.4 (*) CBC WITH AUTO DIFFERENTIAL - Abnormal Auto WBC 4.9 RBC 4.34 (*) Hemoglobin 13.7 Hematocrit 40.9 MCV 94.2 MCH 31.6 MCHC 33.5 RDW 14.4 Platelets 210 MPV 8.5 (*) nRBC 0.0 Neutrophils Relative 55.2 Lymphocytes Relative 28.5 Monocytes Relative 14.3 (*) Eosinophils Relative 1.4 Basophils Relative 0.4 Immature Grans % 0.2 Neutrophils Absolute 2.7 Lymphocytes Absolute 1.4 Monocytes Absolute 0.7 Eosinophils Absolute 0.1 Basophils Absolute 0.0 Immature Grans Absolute 0.0 BASIC METABOLIC PANEL - Abnormal SODIUM 135 POTASSIUM 4.0 CHLORIDE 99 CARBON DIOXIDE 27 UREA NITROGEN 7 (*) CREATININE 0.62 (*) GLUCOSE 108 (*) CALCIUM 8.4 ANION GAP 9 eGFR >90.0 SARS-COV-2 ANTIGEN - Normal SARS-CoV-2 Antigen Negative MAGNESIUM - Normal MAGNESIUM 2.0 DRUGS OF ABUSE AMPHETAMINE SCREEN Negative BARBITURATES SCREEN Negative BENZODIAZEPINE SCREEN Negative COCAINE METAB. SCREEN Negative METHADONE SCREEN Negative OPIATES SCREEN Negative OXYCODONE SCREEN Negative PHENCYCLIDINE SCREEN Negative Narrative: The expected value for all of the drugs listed above is Negative. The following drugs or drug groups have been screened for by Immunoassay at the following thresholds: Amphetamine class (1000 ng/mL) Barbiturates (200 ng/mL) Benzodiazepines (200 ng/mL) Cocaine (300 ng/mL) Methadone (300 ng/mL) Opiates (300 ng/mL) Oxycodone (100 ng/mL) PCP (25 ng/mL) NOTE: These results are for medical treatment only. Analysis performed using non-forensic procedures. POSITIVE results are NOT confirmed by a more specific alternative method unless requested. If confirmation is needed, request confirmation under separate order. BASIC METABOLIC PANEL WITH MG REFLEX Narrative: The following orders were created for panel order Basic Metabolic Panel w/ Mg Reflex. Procedure Abnormality Status --------- ------ Basic metabolic panel[[id number]] Abnormal Final result Please view results for these tests on the individual orders. All other labs were within normal range or not returned as of this dictation. EMERGENCY DEPARTMENT COURSE and DIFFERENTIAL DIAGNOSIS/MDM: Vitals: Vitals: 11/28/23 1945 11/29/23 0749 11/29/23 1947 11/30/23 0809 BP: 152/91 (!) 156/110 146/88 136/92 BP Location: Right arm Patient Position: Sitting Pulse: 110 96 109 112 Resp: 18 18 Temp: 36.4 C (97.5 F) 36.5 C (97.7 F) 36.8 C (98.2 F) 36.3 C (97.3 F) TempSrc: Temporal Temporal Temporal Temporal SpO2: 94% 96% 93% 95% Weight: Height: Medications Administered in the ED: Medications PHENobarbital tablet 97.2 mg (97.2 mg Oral Given 11/27/232231) LORazepam (Ativan) tablet 2 mg (2 mg Oral Given 11/28/234) With concern for alcohol withdrawal PROCEDURES: Unless otherwise noted below, none Procedures Differential Diagnosis Considerations: Alcohol withdrawal Sources of History: Patient ED Course: Vital signs with mild tachycardia we will give him dose of phenobarbital for alcohol withdrawal symptoms. Will consult ACC coordinator if still around otherwise we will obtain clearance for detox and if medically cleared will discuss with detox provider for admission Reassessment: Discussed with detox provider who stated that patient was not excepted to their floor due to his previous behavior. Will be admitted medically once medically cleared Consideration of Admission/Observation: Independent Interpretation of Tests: Diagnostic Tests Considered but not Performed: Prescription Medications Considered but not Prescribed: Chronic Conditions Affecting Care: FINAL IMPRESSION 1. 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) DISPOSITION Admit 11/28/2023 02:01:18 AM CRITICAL CARE TIME PATIENT REFERRED TO: Lynda Rasheed MD [address] [place] [address] [address] [facility] [id number] DISCHARGE MEDICATIONS: Discharge Medication List as of 11/30/2023 10:39 AM START taking these medications Details naltrexone ER (Vivitrol) injection Inject 4 mL (380 mg) into the buttocks Once for 1 dose., Starting 11/29/2023, Normal (Comment: Please note this report has been produced using speech recognition software and may contain errors related to that system including errors in grammar, punctuation, and spelling, as well as words and phrases that may be inappropriate. If there are any questions or concerns please feel free to contact the dictating provider for clarification.) Steve Demarco MD (electronically signed) Emergency Medicine Provider [employer] Steve Demarco MD 11/30/23 1518 Emergency Department Encounter Location: [facility] ED Patient: Maria De Jesus Hogan : 1965 Date of evaluation: 11/27/2023 ED Provider: Val Fragoso MD [address] Maria De Jesus Hogan was checked out to me by Dr Demarco. Please see his/her initial documentation for details of the patient's initial ED presentation, physical exam and completed studies. In brief, Maria De Jesus Hogan is a 58 y.o. male history of alcohol abuse that presented to the emergency department for evaluation for alcohol withdrawal. Patient states that he did have a period of sobriety while in penitentiary. He states earlier in the ER he had gone through detox. He states he drinks about 8 tall boys a day. This is however a refill corrected with drinking straight. He says he feels as though he is seeing things that are not there. I have reviewed and interpreted all of the currently available lab results and diagnostics from this visit: Results for orders placed or performed during the hospital encounter of 11/27/23 SARS-CoV-2 Antigen Specimen: Nose; Swab Result Value Ref Range SARS-CoV-2 Antigen Negative Negative Comprehensive metabolic panel Result Value Ref Range SODIUM 139 135 - 145 mmol/L POTASSIUM 4.2 3.5 - 5.1 mmol/L CHLORIDE 101 98 - 107 mmol/L CARBON DIOXIDE 27 22 - 30 mmol/L ANION GAP 11 3 - 13 mmol/L UREA NITROGEN 7 (L) 9 - 20 mg/dL CREATININE 0.64 (L) 0.66 - 1.25 mg/dL GLUCOSE 97 70 - 100 mg/dL CALCIUM 8.7 8.4 - 10.4 mg/dL AST (SGOT) 42 15 - 46 U/L ALT 27 0 - 49 U/L ALKALINE PHOSPHATASE 99 38 - 126 U/L ALBUMIN 4.3 3.5 - 5.0 g/dL BILIRUBIN, TOTAL 0.4 0.2 - 1.3 mg/dL TOTAL PROTEIN 7.3 6.3 - 8.2 g/dL eGFR >90.0 >60.0 mL/min/1.73m*2 Ethanol Result Value Ref Range ETHANOL IN SER/PLAS 0.297 (H) 0.000 - 0.010 g/dL Drug screen panel, emergency Result Value Ref Range AMPHETAMINE SCREEN Negative BARBITURATES SCREEN Negative BENZODIAZEPINE SCREEN Negative COCAINE METAB. SCREEN Negative METHADONE SCREEN Negative OPIATES SCREEN Negative OXYCODONE SCREEN Negative PHENCYCLIDINE SCREEN Negative CBC Result Value Ref Range Auto WBC 6.0 3.6 - 10.7 10*3/uL RBC 4.72 4.40 - 5.90 10*6/uL Hemoglobin 15.1 13.0 - 18.0 g/dL Hematocrit 44.2 40.0 - 52.0 % MCV 93.6 77.0 - 99.0 fL MCH 32.0 26.0 - 34.0 pg MCHC 34.2 30.5 - 36.0 % RDW 14.5 11.5 - 15.0 % Platelets 248 140 - 440 10*3/uL MPV 8.4 (L) 9.0 - 12.7 fL Magnesium Result Value Ref Range MAGNESIUM 2.0 1.6 - 2.3 mg/dL Labs Reviewed COMPREHENSIVE METABOLIC PANEL - Abnormal Result Value SODIUM 139 POTASSIUM 4.2 CHLORIDE 101 CARBON DIOXIDE 27 ANION GAP 11 UREA NITROGEN 7 (*) CREATININE 0.64 (*) GLUCOSE 97 CALCIUM 8.7 AST (SGOT) 42 ALT 27 ALKALINE PHOSPHATASE 99 ALBUMIN 4.3 BILIRUBIN, TOTAL 0.4 TOTAL PROTEIN 7.3 eGFR >90.0 ETHANOL - Abnormal ETHANOL IN SER/PLAS 0.297 (*) Narrative: NOTE: This result is for medical treatment only. Analysis performed using non-forensic procedures. CBC (HEMOGRAM) - Abnormal Auto WBC 6.0 RBC 4.72 Hemoglobin 15.1 Hematocrit 44.2 MCV 93.6 MCH 32.0 MCHC 34.2 RDW 14.5 Platelets 248 MPV 8.4 (*) SARS-COV-2 ANTIGEN - Normal SARS-CoV-2 Antigen Negative MAGNESIUM - Normal MAGNESIUM 2.0 DRUGS OF ABUSE AMPHETAMINE SCREEN Negative BARBITURATES SCREEN Negative BENZODIAZEPINE SCREEN Negative COCAINE METAB. SCREEN Negative METHADONE SCREEN Negative OPIATES SCREEN Negative OXYCODONE SCREEN Negative PHENCYCLIDINE SCREEN Negative Narrative: The expected value for all of the drugs listed above is Negative. The following drugs or drug groups have been screened for by Immunoassay at the following thresholds: Amphetamine class (1000 ng/mL) Barbiturates (200 ng/mL) Benzodiazepines (200 ng/mL) Cocaine (300 ng/mL) Methadone (300 ng/mL) Opiates (300 ng/mL) Oxycodone (100 ng/mL) PCP (25 ng/mL) NOTE: These results are for medical treatment only. Analysis performed using non-forensic procedures. POSITIVE results are NOT confirmed by a more specific alternative method unless requested. If confirmation is needed, request confirmation under separate order. No orders to display Final ED Course and MDM: In brief, Maria De Jesus Hogan is a 58 y.o. male whose care was signed out to me by the outgoing provider. In brief, patient presenting for concern for alcohol withdrawal. Patient with an alcohol level of 297. Noted to be tachycardic in the department with tremors. Workup unremarkable for any leukocytosis, anemia, or any other substances of abuse. Patient with no electrolyte abnormalities, renal function impairment, or transaminitis. Given tachycardia and EKG obtained. EKG with sinus tachycardia with no ST elevations or depressions concerning for STEMI. No axis deviation appreciated. EKG with no significant change compared to previous EKGs on file. Patient received phenobarbital 97.2 mg. On reevaluation patient continues to be tachycardic. Received a dose of lorazepam 2 mg. Discussed patient with detox medicine. Patient not a candidate for detox medicine at this time. As a result patient discussed with inpatient admitting provider who accepted patient for admission. Admitted in stable condition. Medications LORazepam (Ativan) tablet 2 mg (has no administration in time range) PHENobarbital tablet 97.2 mg (97.2 mg Oral Given 11/27/232231) Final Impression 1. 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 Efforts were made to edit the dictations but occasionally words are mis-transcribed.) Val Fragoso MD [employer] Val Fragoso MD 11/28/23 0515 documented in this encounter [facility] 11-28-2023 Emergency department Note O2 turned up to 4L NC due to low saturation in 70's while sleeping Gris Dillon RN 11/28/23 1500 [facility] 11-28-2023 Emergency department Note 2L NC applied due to O2 sat in 80's while sleeping Gris Dillon RN 11/28/23 1425 [facility] 11-28-2023 Consult note Associated Order (s): IP CONSULT TO ADDICTION MEDICINE Images from the original note were not included. ADDICTION MEDICINE CONSULTATION H&P Patient: Maria De Jesus Hogan Admit Date: 11/27/2023 Primary Care Physician: Lynda Rasheed MD Reason for Consultation: I need help to quit drinking. HISTORY OF PRESENT ILLNESS Chief Complaint Patient presents with Alcohol Problem Pt c/o ETOH abuse. States last drink was a couple hours. Pt states 8 tall boys a day typically. Pt states he's having difficulty thinking straight. Maria De Jesus Hogan is a 58 y.o. C male with a PMH of AUD, TUD, BPH and Lombardo's esophagus who was admitted for Severe alcohol use disorder with acute intoxication. Addiction medicine was consulted to assist with chemical detox. Pt reports that he has been drinking for a long time notes that he has only had 1 year of sobriety which ended 5 years ago when my mother . Pt states that his 1 year of sobriety was brought on due to a DUI and court ordered treatment. He attended chemical detox and then IOP but cannot recall what IOP he attended. He denies any other legal issues noting this time, its for me. I just want to get better. He denies any MH history including no prior admissions, no hx of SI or HI, No hx of anxiety or depression. Currently he reports headache, lightheadedness, abd discomfort and bloating, shakes, hot and cold flashes, anxiety and irritability. No SI/HI or AVH reported. On admission, a urine drug screen was negative, and a serum alcohol level was 0.297. SUBSTANCE USE HISTORY Brief Substance Use Narrative: As above. Current Substance Use Alcohol: Drinks 6-10 tall boys per day. No Hx of withdrawal Sz or DTs. Amphetamines: None. Benzos: None. Cocaine: None. Hallucinogens: None. Marijuana: None. Nicotine: Smokes 1 to 1.5 packs per day. Opioids: None. Treatment History Inpatient Rehab: None. Chem Dep IOP: previously attended IOP but Pt cannot recall where. Detoxifications: x1 [facility] TEK (per Pt). 12 Step Meetings: Has attended several in the past but does not feel that these meetings have been helpful. Medication Assisted Treatment: Denies prior treatment. Consequences [] IVDA. [x] Blackouts related to substance use. [] History of withdrawal seizures. [] History of delirium tremens. [x] History of overdoses. [x] Legal consequences of substance use. Substance Use Disorder Criteria 2-3 = mild; 4-5 = moderate; 6 or >6 = severe substance use disorder [x] Taking substance in larger amounts and/or for longer than intended. [x] Wanting to cut down or quit but not being able to. [x] Spending a lot of time obtaining the substance. [x] Craving or a strong desire to use substance. [x] Repeatedly doesn't carry out major obligations due to substance use. [x] Using despite recurring social or interpersonal problems. [x] Reducing social, occupational, or recreational activities. [x] Recurrent use in physically hazardous situations. [x] Consistent use despite recurrent physical or psychological difficulties. [x] Tolerance (increased amounts to achieve intoxication or diminished effect). [x] Withdrawal syndrome or the substance is used to avoid withdrawal. REMAINING HISTORY Psychiatric History Current Psychiatrist: None. Current Medications: None. Diagnoses: None. Previous Medication Trials: None. Psychiatric Hospitalizations: None. Previous Suicide Attempts: None. Adverse Childhood Events: None. Trauma History: None. History of Head Injuries: None. Past Medical History Past Medical History: Diagnosis Date Alcohol abuse Alcohol dependence with withdrawal (HCC) 08/31/2019 Alcohol intoxication without use disorder, uncomplicated (HCC) 10/01/2019 Alcohol use disorder 09/10/2022 Alcohol withdrawal syndrome with complication (HCC) 09/27/2021 Alcohol withdrawal syndrome without complication (HCC) Alcohol withdrawal, uncomplicated (HCC) 08/31/2019 Alcohol withdrawal, with unspecified complication (HCC) 10/02/2019 Alcohol withdrawal, with unspecified complication (HCC) 10/02/2019 Alcoholism (CMS/HCC) (HCC) Anxiety Arthritis Maria De Jesus Cerebral artery occlusion with cerebral infarction (HCC) Cerebrovascular disease Depression GERD (gastroesophageal reflux disease) Maria De Jesus Hypertension Insomnia Past Surgical History Past Surgical History: Procedure Laterality Date COLONOSCOPY 06/10/2020 EGD/Dr Madison/[facility]ST REMOVAL face EGD (HISTORICAL) 07/23/2022 Dr. Estrella-[facility] SMALL INTESTINE SURGERY UPPER GASTROINTESTINAL ENDOSCOPY 09/27/2021 normal WISDOM TOOTH EXTRACTION Family History Family History Problem Relation Name Age of Onset Depression Sister Maria De Jesus Hogan Other ([id number]) Sister Maria De Jesus Hogan agoraphobia Arthritis Sister Maria De Jesus Hogan Cancer Mother Maria De Jesus Hogan colon rectal cancer; dx after age 50 Other ([id number]) Mother Maria De Jesus Hogan alcoholism Alcohol abuse Mother Maria De Jesus Hogan Stroke Mother Maria De Jesus Hogan Other ([id number]) Father Maria De Jesus Hogan h/o rheumatic fever, cardiac arrest due to bee sting Hypertension Father Maria De Jesus Hogan Social Determinants of Health Tobacco Use: High Risk (11/27/2023) Patient History Smoking Tobacco Use: Every Day Smokeless Tobacco Use: Never Passive Exposure: Not on file Alcohol Use: Alcohol Misuse (11/27/2023) AUDIT-C Frequency of Alcohol Consumption: 4 or more times a week Average Number of Drinks: 10 or more Frequency of Binge Drinking: Daily or almost daily Financial Resource Strain: Low Risk (07/28/2023) Overall Financial Resource Strain (CARDIA) Difficulty of Paying Living Expenses: Not very hard Food Insecurity: No Food Insecurity (07/28/2023) Hunger Vital Sign Worried About Running Out of Food in the Last Year: Never true Ran Out of Food in the Last Year: Never true Transportation Needs: No Transportation Needs (07/28/2023) PRAPARE - Transportation Lack of Transportation (Medical): No Lack of Transportation (Non-Medical): No Physical Activity: Inactive (07/28/2023) Exercise Vital Sign Days of Exercise per Week: 0 days Minutes of Exercise per Session: 0 min Stress: Stress Concern Present (07/28/2023) [place] [employer] - Occupational Stress Questionnaire Feeling of Stress : To some extent Social Connections: Moderately Isolated (07/28/2023) Social Connection and Isolation Panel [NHANES] Frequency of Communication with Friends and Family: Twice a week Frequency of Social Gatherings with Friends and Family: Once a week Attends Synagogue Services: Never Active Member of Clubs or Organizations: No Attends Club or Organization Meetings: Never Marital Status: Intimate Partner Violence: Not At Risk (07/28/2023) Humiliation, Afraid, Rape, and Kick questionnaire Fear of Current or Ex-Partner: No Emotionally Abused: No Physically Abused: No Sexually Abused: No Depression: None or minimal depression (07/27/2023) PHQ-9 PHQ-9 Score: 3 Housing Stability: Low Risk (07/28/2023) Housing Stability Vital Sign Unable to Pay for Housing in the Last Year: No Number of Places Lived in the Last Year: 1 Unstable Housing in the Last Year: No Utilities: Not At Risk (07/28/2023) [facility] Utilities Threatened with loss of utilities: No Health Literacy: Not on file REVIEW OF SYSTEMS A 14 system ROS was collected and is negative unless otherwise noted above. EXAM Vitals Vitals: 11/28/23 0640 11/28/23 0730 11/28/23 0840 11/28/23 0900 BP: 139/87 (!) 144/90 113/62 (!) 132/91 BP Location: Left arm Patient Position: Sitting Pulse: 104 106 (!) 123 83 Resp: 24 25 24 Temp: TempSrc: SpO2: 95% Weight: Height: Physical Exam Constitutional: Comments: Somnolent but responds to questions appropriately. Obese. Weathered appearing. HENT: Head: Normocephalic and atraumatic. Nose: Nose normal. Mouth/Throat: Mouth: Mucous membranes are dry. Eyes: Extraocular Movements: Extraocular movements intact. Pupils: Pupils are equal, round, and reactive to light. Cardiovascular: Rate and Rhythm: Normal rate and regular rhythm. Pulmonary: Effort: Pulmonary effort is normal. Breath sounds: Normal breath sounds. Abdominal: Comments: Obese. NT. Musculoskeletal: Cervical back: Normal range of motion and neck supple. Neurological: General: No focal deficit present. Mental Status: He is oriented to person, place, and time. Psychiatric: Mood and Affect: Mood normal. Behavior: Behavior normal. IMAGING ECG 12 lead Result Date: 11/28/2023 Sinus tachycardia Probable left atrial enlargement RSR' in V1 or V2, right VCD or RVH Borderline T abnormalities, anterior leads No significant changes compared to 07/27/2023 Electronically Signed On 11-28-2023 04:56:24 EDT by Val BRADSHAW Recent Results (from the past 48 hour(s)) CBC Collection Time: 11/27/23 10:23 PM Result Value Ref Range Auto WBC 6.0 3.6 - 10.7 10*3/uL RBC 4.72 4.40 - 5.90 10*6/uL Hemoglobin 15.1 13.0 - 18.0 g/dL Hematocrit 44.2 40.0 - 52.0 % MCV 93.6 77.0 - 99.0 fL MCH 32.0 26.0 - 34.0 pg MCHC 34.2 30.5 - 36.0 % RDW 14.5 11.5 - 15.0 % Platelets 248 140 - 440 10*3/uL MPV 8.4 (L) 9.0 - 12.7 fL Drug screen panel, emergency Collection Time: 11/27/23 10:25 PM Result Value Ref Range AMPHETAMINE SCREEN Negative BARBITURATES SCREEN Negative BENZODIAZEPINE SCREEN Negative COCAINE METAB. SCREEN Negative METHADONE SCREEN Negative OPIATES SCREEN Negative OXYCODONE SCREEN Negative PHENCYCLIDINE SCREEN Negative SARS-CoV-2 Antigen Collection Time: 11/27/23 10:31 PM Specimen: Nose; Swab Result Value Ref Range SARS-CoV-2 Antigen Negative Negative Comprehensive metabolic panel Collection Time: 11/27/23 11:04 PM Result Value Ref Range SODIUM 139 135 - 145 mmol/L POTASSIUM 4.2 3.5 - 5.1 mmol/L CHLORIDE 101 98 - 107 mmol/L CARBON DIOXIDE 27 22 - 30 mmol/L ANION GAP 11 3 - 13 mmol/L UREA NITROGEN 7 (L) 9 - 20 mg/dL CREATININE 0.64 (L) 0.66 - 1.25 mg/dL GLUCOSE 97 70 - 100 mg/dL CALCIUM 8.7 8.4 - 10.4 mg/dL AST (SGOT) 42 15 - 46 U/L ALT 27 0 - 49 U/L ALKALINE PHOSPHATASE 99 38 - 126 U/L ALBUMIN 4.3 3.5 - 5.0 g/dL BILIRUBIN, TOTAL 0.4 0.2 - 1.3 mg/dL TOTAL PROTEIN 7.3 6.3 - 8.2 g/dL eGFR >90.0 >60.0 mL/min/1.73m*2 Ethanol Collection Time: 11/27/23 11:04 PM Result Value Ref Range ETHANOL IN SER/PLAS 0.297 (H) 0.000 - 0.010 g/dL Magnesium Collection Time: 11/27/23 11:04 PM Result Value Ref Range MAGNESIUM 2.0 1.6 - 2.3 mg/dL ECG 12 lead Collection Time: 11/28/23 2:23 AM Result Value Ref Range Heart Rate 113 bpm QRSD Interval 94 ms QT Interval 338 ms QTC Interval 463 ms P [place] 77 degrees QRS [place] 85 degrees T Wave [place] 56 degrees VA Interval 158 ms CBC auto differential Collection Time: 11/28/23 6:37 AM Result Value Ref Range Auto WBC 4.9 3.6 - 10.7 10*3/uL RBC 4.34 (L) 4.40 - 5.90 10*6/uL Hemoglobin 13.7 13.0 - 18.0 g/dL Hematocrit 40.9 40.0 - 52.0 % MCV 94.2 77.0 - 99.0 fL MCH 31.6 26.0 - 34.0 pg MCHC 33.5 30.5 - 36.0 % RDW 14.4 11.5 - 15.0 % Platelets 210 140 - 440 10*3/uL MPV 8.5 (L) 9.0 - 12.7 fL nRBC 0.0 0.0 - 2.0 /100 WBCs Neutrophils Relative 55.2 38.0 - 82.0 % Lymphocytes Relative 28.5 15.0 - 45.0 % Monocytes Relative 14.3 (H) 5.0 - 13.0 % Eosinophils Relative 1.4 0.0 - 6.0 % Basophils Relative 0.4 0.0 - 2.0 % Immature Grans % 0.2 0.0 - 2.0 % Neutrophils Absolute 2.7 1.8 - 7.5 10*3/uL Lymphocytes Absolute 1.4 1.0 - 4.3 10*3/uL Monocytes Absolute 0.7 0.0 - 0.9 10*3/uL Eosinophils Absolute 0.1 0.0 - 0.5 10*3/uL Basophils Absolute 0.0 0.0 - 0.2 10*3/uL Immature Grans Absolute 0.0 <0.1 10*3/uL Basic metabolic panel Collection Time: 11/28/23 6:37 AM Result Value Ref Range SODIUM 135 135 - 145 mmol/L POTASSIUM 4.0 3.5 - 5.1 mmol/L CHLORIDE 99 98 - 107 mmol/L CARBON DIOXIDE 27 22 - 30 mmol/L UREA NITROGEN 7 (L) 9 - 20 mg/dL CREATININE 0.62 (L) 0.66 - 1.25 mg/dL GLUCOSE 108 (H) 70 - 100 mg/dL CALCIUM 8.4 8.4 - 10.4 mg/dL ANION GAP 9 3 - 13 mmol/L eGFR >90.0 >60.0 mL/min/1.73m*2 MEDICATIONS Home Meds Current Outpatient Medications Medication Instructions acamprosate (CAMPRAL) 333 mg, Oral, 3 times daily, Do not crush, chew, or split. albuterol 108 (90 Base) MCG/ACT inhaler 2 puffs, Inhalation, Every 6 hours PRN calcipotriene (Dovonex) 0.005 % cream Topical, 2 times daily gabapentin (NEURONTIN) 600 mg, Oral, 3 times daily melatonin 5 mg, Oral, Nightly Multiple Vitamins tablet 1 tablet, Oral, Daily nicotine (Nicoderm, Step 2) 14 MG/24HR patch 1 patch, TransDERmal, Daily pantoprazole (PROTONIX) 40 mg, Oral, Daily before breakfast Thiamine Mononitrate (VITAMIN B1) 100 mg, Oral, Daily Scheduled Inpatient Meds enoxaparin, 40 mg, SubCUTAneous, Daily folic acid, 1 mg, Oral, Daily gabapentin, 600 mg, Oral, TID pantoprazole, 40 mg, Oral, qAM AC thiamine, 100 mg, Oral, Daily PRN Inpatient Meds PRN medications: acetaminophen OR acetaminophen, aluminum & magnesium hydroxide-simethicone OR calcium carbonate, LORazepam OR LORazepam OR LORazepam OR LORazepam OR LORazepam OR LORazepam OR LORazepam OR LORazepam, nicotine polacrilex, ondansetron ODT OR ondansetron, polyethylene glycol (PEG) 3350 Continuous Inpatient Infusions ASSESSMENT & PLAN Alcohol use disorder Counseled patient on biopsychosocial consequences of substance use. Encouraged professional chemical dependency treatment. Encouraged 12 step meeting attendance. Follow up plan for addiction management discussed with patient: Patient seen and examined in the ED, current plan is chemical detox. Patient is open to starting IOP after he is chemically detox. Will have IOP counselor speak to him once he is full admitted by IM. Pending discussion of MAT; Pt reports he would like to discuss when he feels al little better. Alcohol withdrawal Last use of ETOH was on 11/27/23. Was provided a 2mg Ativan dose at 0224 this morning Was provided a 97.2mg PB dose at 2232 (11/27/23). Continue Ativan taper to ordered by ED to manage ETOH withdrawal symptoms. Ativan 1mg Q1 hour for CIWA of 8-10. Ativan 2mg Q1 hour for CIWA of 11-15. Ativan 3mg Q1 hour for CIWA of 16-20. Ativan 4mg Q1 hour for CIWA of >20. CIWA scores per unit protocol. If CIWA scores persist > 15 for > 8 hours; addition of Phenobarb 97.2mg PO Q4 hours recommended until symptoms controlled. Disposition: Discharge anticipated in 3-5 days. This is pending: Resolution of withdrawal symptoms. Medical stabilization. Labs/tests/tasks to review: None. Tray Setter to coordinate care with aftercare program. Will follow. I reviewed the patient's medical record, and reviewed test results. I educated and then counseled the patient on any substance use disorder or chemical dependency related issues. This included a face to face evaluation and physical examination, and coordinating care on a substance use disorder treatment plan as well as documenting clinical information on the day of visit. [facility] 11-28-2023 Consult note Associated Order (s): IP CONSULT TO ADDICTION MEDICINE Images from the original note were not included. ADDICTION MEDICINE CONSULTATION H&P Patient: Maria De Jesus Hogan Admit Date: 11/27/2023 Primary Care Physician: Lynda Rasheed MD Reason for Consultation: I need help to quit drinking. HISTORY OF PRESENT ILLNESS Chief Complaint Patient presents with Alcohol Problem Pt c/o ETOH abuse. States last drink was a couple hours. Pt states 8 tall boys a day typically. Pt states he's having difficulty thinking straight. Maria De Jesus Hogan is a 58 y.o. C male with a PMH of AUD, TUD, BPH and Lombardo's esophagus who was admitted for Severe alcohol use disorder with acute intoxication. Addiction medicine was consulted to assist with chemical detox. Pt reports that he has been drinking for a long time notes that he has only had 1 year of sobriety which ended 5 years ago when my mother . Pt states that his 1 year of sobriety was brought on due to a DUI and court ordered treatment. He attended chemical detox and then IOP but cannot recall what IOP he attended. He denies any other legal issues noting this time, its for me. I just want to get better. He denies any MH history including no prior admissions, no hx of SI or HI, No hx of anxiety or depression. Currently he reports headache, lightheadedness, abd discomfort and bloating, shakes, hot and cold flashes, anxiety and irritability. No SI/HI or AVH reported. On admission, a urine drug screen was negative, and a serum alcohol level was 0.297. SUBSTANCE USE HISTORY Brief Substance Use Narrative: As above. Current Substance Use Alcohol: Drinks 6-10 tall boys per day. No Hx of withdrawal Sz or DTs. Amphetamines: None. Benzos: None. Cocaine: None. Hallucinogens: None. Marijuana: None. Nicotine: Smokes 1 to 1.5 packs per day. Opioids: None. Treatment History Inpatient Rehab: None. Chem Dep IOP: previously attended IOP but Pt cannot recall where. Detoxifications: x1 [facility] TEK (per Pt). 12 Step Meetings: Has attended several in the past but does not feel that these meetings have been helpful. Medication Assisted Treatment: Denies prior treatment. Consequences [] IVDA. [x] Blackouts related to substance use. [] History of withdrawal seizures. [] History of delirium tremens. [x] History of overdoses. [x] Legal consequences of substance use. Substance Use Disorder Criteria 2-3 = mild; 4-5 = moderate; 6 or >6 = severe substance use disorder [x] Taking substance in larger amounts and/or for longer than intended. [x] Wanting to cut down or quit but not being able to. [x] Spending a lot of time obtaining the substance. [x] Craving or a strong desire to use substance. [x] Repeatedly doesn't carry out major obligations due to substance use. [x] Using despite recurring social or interpersonal problems. [x] Reducing social, occupational, or recreational activities. [x] Recurrent use in physically hazardous situations. [x] Consistent use despite recurrent physical or psychological difficulties. [x] Tolerance (increased amounts to achieve intoxication or diminished effect). [x] Withdrawal syndrome or the substance is used to avoid withdrawal. REMAINING HISTORY Psychiatric History Current Psychiatrist: None. Current Medications: None. Diagnoses: None. Previous Medication Trials: None. Psychiatric Hospitalizations: None. Previous Suicide Attempts: None. Adverse Childhood Events: None. Trauma History: None. History of Head Injuries: None. Past Medical History Past Medical History: Diagnosis Date Alcohol abuse Alcohol dependence with withdrawal (HCC) 08/31/2019 Alcohol intoxication without use disorder, uncomplicated (HCC) 10/01/2019 Alcohol use disorder 09/10/2022 Alcohol withdrawal syndrome with complication (HCC) 09/27/2021 Alcohol withdrawal syndrome without complication (HCC) Alcohol withdrawal, uncomplicated (HCC) 08/31/2019 Alcohol withdrawal, with unspecified complication (HCC) 10/02/2019 Alcohol withdrawal, with unspecified complication (HCC) 10/02/2019 Alcoholism (CMS/HCC) (HCC) Anxiety Arthritis Maria De Jesus Cerebral artery occlusion with cerebral infarction (HCC) Cerebrovascular disease Depression GERD (gastroesophageal reflux disease) Maria De Jesus Hypertension Insomnia Past Surgical History Past Surgical History: Procedure Laterality Date COLONOSCOPY 06/10/2020 EGD/Dr Madison/AMANDA CYST REMOVAL face EGD (HISTORICAL) 07/23/2022 Dr. Estrella-[facility] SMALL INTESTINE SURGERY UPPER GASTROINTESTINAL ENDOSCOPY 09/27/2021 normal WISDOM TOOTH EXTRACTION Family History Family History Problem Relation Name Age of Onset Depression Sister Maria De Jesus Hogan Other ([id number]) Sister Maria De Jesus Hogan agoraphobia Arthritis Sister Maria De Jesus Hogna Cancer Mother Maria De Jesus Hogan colon rectal cancer; dx after age 50 Other ([id number]) Mother Maria De Jesus Hogan alcoholism Alcohol abuse Mother Maria De Jesus Hogan Stroke Mother Maria De Jesus Hogan Other ([id number]) Father Maria De Jesus Hogan h/o rheumatic fever, cardiac arrest due to bee sting Hypertension Father Maria De Jesus Hogan Social Determinants of Health Tobacco Use: High Risk (11/27/2023) Patient History Smoking Tobacco Use: Every Day Smokeless Tobacco Use: Never Passive Exposure: Not on file Alcohol Use: Alcohol Misuse (11/27/2023) AUDIT-C Frequency of Alcohol Consumption: 4 or more times a week Average Number of Drinks: 10 or more Frequency of Binge Drinking: Daily or almost daily Financial Resource Strain: Low Risk (07/28/2023) Overall Financial Resource Strain (CARDIA) Difficulty of Paying Living Expenses: Not very hard Food Insecurity: No Food Insecurity (07/28/2023) Hunger Vital Sign Worried About Running Out of Food in the Last Year: Never true Ran Out of Food in the Last Year: Never true Transportation Needs: No Transportation Needs (07/28/2023) PRAPARE - Transportation Lack of Transportation (Medical): No Lack of Transportation (Non-Medical): No Physical Activity: Inactive (07/28/2023) Exercise Vital Sign Days of Exercise per Week: 0 days Minutes of Exercise per Session: 0 min Stress: Stress Concern Present (07/28/2023) [place] [employer] - Occupational Stress Questionnaire Feeling of Stress : To some extent Social Connections: Moderately Isolated (07/28/2023) Social Connection and Isolation Panel [NHANES] Frequency of Communication with Friends and Family: Twice a week Frequency of Social Gatherings with Friends and Family: Once a week Attends Synagogue Services: Never Active Member of Clubs or Organizations: No Attends Club or Organization Meetings: Never Marital Status: Intimate Partner Violence: Not At Risk (07/28/2023) Humiliation, Afraid, Rape, and Kick questionnaire Fear of Current or Ex-Partner: No Emotionally Abused: No Physically Abused: No Sexually Abused: No Depression: None or minimal depression (07/27/2023) PHQ-9 PHQ-9 Score: 3 Housing Stability: Low Risk (07/28/2023) Housing Stability Vital Sign Unable to Pay for Housing in the Last Year: No Number of Places Lived in the Last Year: 1 Unstable Housing in the Last Year: No Utilities: Not At Risk (07/28/2023) [facility] Utilities Threatened with loss of utilities: No Health Literacy: Not on file REVIEW OF SYSTEMS A 14 system ROS was collected and is negative unless otherwise noted above. EXAM Vitals Vitals: 11/28/23 0640 11/28/23 0730 11/28/23 0840 11/28/23 0900 BP: 139/87 (!) 144/90 113/62 (!) 132/91 BP Location: Left arm Patient Position: Sitting Pulse: 104 106 (!) 123 83 Resp: 24 24 Temp: TempSrc: SpO2: 95% Weight: Height: Physical Exam Constitutional: Comments: Somnolent but responds to questions appropriately. Obese. Weathered appearing. HENT: Head: Normocephalic and atraumatic. Nose: Nose normal. Mouth/Throat: Mouth: Mucous membranes are dry. Eyes: Extraocular Movements: Extraocular movements intact. Pupils: Pupils are equal, round, and reactive to light. Cardiovascular: Rate and Rhythm: Normal rate and regular rhythm. Pulmonary: Effort: Pulmonary effort is normal. Breath sounds: Normal breath sounds. Abdominal: Comments: Obese. NT. Musculoskeletal: Cervical back: Normal range of motion and neck supple. Neurological: General: No focal deficit present. Mental Status: He is oriented to person, place, and time. Psychiatric: Mood and Affect: Mood normal. Behavior: Behavior normal. IMAGING ECG 12 lead Result Date: 11/28/2023 Sinus tachycardia Probable left atrial enlargement RSR' in V1 or V2, right VCD or RVH Borderline T abnormalities, anterior leads No significant changes compared to 07/27/2023 Electronically Signed On 11-28-2023 04:56:24 EDT by [employer] Recent Results (from the past 48 hour(s)) CBC Collection Time: 11/27/23 10:23 PM Result Value Ref Range Auto WBC 6.0 3.6 - 10.7 10*3/uL RBC 4.72 4.40 - 5.90 10*6/uL Hemoglobin 15.1 13.0 - 18.0 g/dL Hematocrit 44.2 40.0 - 52.0 % MCV 93.6 77.0 - 99.0 fL MCH 32.0 26.0 - 34.0 pg MCHC 34.2 30.5 - 36.0 % RDW 14.5 11.5 - 15.0 % Platelets 248 140 - 440 10*3/uL MPV 8.4 (L) 9.0 - 12.7 fL Drug screen panel, emergency Collection Time: 11/27/23 10:25 PM Result Value Ref Range AMPHETAMINE SCREEN Negative BARBITURATES SCREEN Negative BENZODIAZEPINE SCREEN Negative COCAINE METAB. SCREEN Negative METHADONE SCREEN Negative OPIATES SCREEN Negative OXYCODONE SCREEN Negative PHENCYCLIDINE SCREEN Negative SARS-CoV-2 Antigen Collection Time: 11/27/23 10:31 PM Specimen: Nose; Swab Result Value Ref Range SARS-CoV-2 Antigen Negative Negative Comprehensive metabolic panel Collection Time: 11/27/23 11:04 PM Result Value Ref Range SODIUM 139 135 - 145 mmol/L POTASSIUM 4.2 3.5 - 5.1 mmol/L CHLORIDE 101 98 - 107 mmol/L CARBON DIOXIDE 27 22 - 30 mmol/L ANION GAP 11 3 - 13 mmol/L UREA NITROGEN 7 (L) 9 - 20 mg/dL CREATININE 0.64 (L) 0.66 - 1.25 mg/dL GLUCOSE 97 70 - 100 mg/dL CALCIUM 8.7 8.4 - 10.4 mg/dL AST (SGOT) 42 15 - 46 U/L ALT 27 0 - 49 U/L ALKALINE PHOSPHATASE 99 38 - 126 U/L ALBUMIN 4.3 3.5 - 5.0 g/dL BILIRUBIN, TOTAL 0.4 0.2 - 1.3 mg/dL TOTAL PROTEIN 7.3 6.3 - 8.2 g/dL eGFR >90.0 >60.0 mL/min/1.73m*2 Ethanol Collection Time: 11/27/23 11:04 PM Result Value Ref Range ETHANOL IN SER/PLAS 0.297 (H) 0.000 - 0.010 g/dL Magnesium Collection Time: 11/27/23 11:04 PM Result Value Ref Range MAGNESIUM 2.0 1.6 - 2.3 mg/dL ECG 12 lead Collection Time: 11/28/23 2:23 AM Result Value Ref Range Heart Rate 113 bpm QRSD Interval 94 ms QT Interval 338 ms QTC Interval 463 ms P [place] 77 degrees QRS [place] 85 degrees T Wave [place] 56 degrees VA Interval 158 ms CBC auto differential Collection Time: 11/28/23 6:37 AM Result Value Ref Range Auto WBC 4.9 3.6 - 10.7 10*3/uL RBC 4.34 (L) 4.40 - 5.90 10*6/uL Hemoglobin 13.7 13.0 - 18.0 g/dL Hematocrit 40.9 40.0 - 52.0 % MCV 94.2 77.0 - 99.0 fL MCH 31.6 26.0 - 34.0 pg MCHC 33.5 30.5 - 36.0 % RDW 14.4 11.5 - 15.0 % Platelets 210 140 - 440 10*3/uL MPV 8.5 (L) 9.0 - 12.7 fL nRBC 0.0 0.0 - 2.0 /100 WBCs Neutrophils Relative 55.2 38.0 - 82.0 % Lymphocytes Relative 28.5 15.0 - 45.0 % Monocytes Relative 14.3 (H) 5.0 - 13.0 % Eosinophils Relative 1.4 0.0 - 6.0 % Basophils Relative 0.4 0.0 - 2.0 % Immature Grans % 0.2 0.0 - 2.0 % Neutrophils Absolute 2.7 1.8 - 7.5 10*3/uL Lymphocytes Absolute 1.4 1.0 - 4.3 10*3/uL Monocytes Absolute 0.7 0.0 - 0.9 10*3/uL Eosinophils Absolute 0.1 0.0 - 0.5 10*3/uL Basophils Absolute 0.0 0.0 - 0.2 10*3/uL Immature Grans Absolute 0.0 <0.1 10*3/uL Basic metabolic panel Collection Time: 11/28/23 6:37 AM Result Value Ref Range SODIUM 135 135 - 145 mmol/L POTASSIUM 4.0 3.5 - 5.1 mmol/L CHLORIDE 99 98 - 107 mmol/L CARBON DIOXIDE 27 22 - 30 mmol/L UREA NITROGEN 7 (L) 9 - 20 mg/dL CREATININE 0.62 (L) 0.66 - 1.25 mg/dL GLUCOSE 108 (H) 70 - 100 mg/dL CALCIUM 8.4 8.4 - 10.4 mg/dL ANION GAP 9 3 - 13 mmol/L eGFR >90.0 >60.0 mL/min/1.73m*2 MEDICATIONS Home Meds Current Outpatient Medications Medication Instructions acamprosate (CAMPRAL) 333 mg, Oral, 3 times daily, Do not crush, chew, or split. albuterol 108 (90 Base) MCG/ACT inhaler 2 puffs, Inhalation, Every 6 hours PRN calcipotriene (Dovonex) 0.005 % cream Topical, 2 times daily gabapentin (NEURONTIN) 600 mg, Oral, 3 times daily melatonin 5 mg, Oral, Nightly Multiple Vitamins tablet 1 tablet, Oral, Daily nicotine (Nicoderm, Step 2) 14 MG/24HR patch 1 patch, TransDERmal, Daily pantoprazole (PROTONIX) 40 mg, Oral, Daily before breakfast Thiamine Mononitrate (VITAMIN B1) 100 mg, Oral, Daily Scheduled Inpatient Meds enoxaparin, 40 mg, SubCUTAneous, Daily folic acid, 1 mg, Oral, Daily gabapentin, 600 mg, Oral, TID pantoprazole, 40 mg, Oral, qAM AC thiamine, 100 mg, Oral, Daily PRN Inpatient Meds PRN medications: acetaminophen OR acetaminophen, aluminum & magnesium hydroxide-simethicone OR calcium carbonate, LORazepam OR LORazepam OR LORazepam OR LORazepam OR LORazepam OR LORazepam OR LORazepam OR LORazepam, nicotine polacrilex, ondansetron ODT OR ondansetron, polyethylene glycol (PEG) 3350 Continuous Inpatient Infusions ASSESSMENT & PLAN Alcohol use disorder Counseled patient on biopsychosocial consequences of substance use. Encouraged professional chemical dependency treatment. Encouraged 12 step meeting attendance. Follow up plan for addiction management discussed with patient: Patient seen and examined in the ED, current plan is chemical detox. Patient is open to starting IOP after he is chemically detox. Will have IOP counselor speak to him once he is full admitted by IM. Pending discussion of MAT; Pt reports he would like to discuss when he feels al little better. Alcohol withdrawal Last use of ETOH was on 11/27/23. Was provided a 2mg Ativan dose at 0224 this morning Was provided a 97.2mg PB dose at 2232 (11/27/23). Continue Ativan taper to ordered by ED to manage ETOH withdrawal symptoms. Ativan 1mg Q1 hour for CIWA of 8-10. Ativan 2mg Q1 hour for CIWA of 11-15. Ativan 3mg Q1 hour for CIWA of 16-20. Ativan 4mg Q1 hour for CIWA of >20. CIWA scores per unit protocol. If CIWA scores persist > 15 for > 8 hours; addition of Phenobarb 97.2mg PO Q4 hours recommended until symptoms controlled. Disposition: Discharge anticipated in 3-5 days. This is pending: Resolution of withdrawal symptoms. Medical stabilization. Labs/tests/tasks to review: None. Tray Setter to coordinate care with aftercare program. Will follow. I reviewed the patient's medical record, and reviewed test results. I educated and then counseled the patient on any substance use disorder or chemical dependency related issues. This included a face to face evaluation and physical examination, and coordinating care on a substance use disorder treatment plan as well as documenting clinical information on the day of visit. documented in this encounter [facility] 11-28-2023 History and physical note History and Physical [facility] [place] : 1965 AGE 58 y.o. YEARS Note Date 11/28/2023 Primary Care Physician:Lynda Rasheed MD Current Providers as of 11/27/2023 PCP: Lynda Rasheed MD Referring Provider: not found, starting on SatNov 27, 2023 12:00 AM Attending Provider: Steve Demarco MD, starting on SatNov 27, 2023 9:10 PM (Active) Chief Complaint: Alcohol Problem (Pt c/o ETOH abuse. States last drink was a couple hours. Pt states 8 tall boys a day typically. Pt states he's having difficulty thinking straight. ) HPI: He drinks daily, he wants to quit Several tall boys daily He reports he was feeling nauseated Tired and wanted to stop He wanted to quit and came to the ed He reports he last drank before coming to the ed He suspects he will go in withdraw, but has not been withdrawing that much yet Review of Systems: General: Skin: HEENT: Cardiovascular Fever n Rashes Difficulty chewing Chest Pain n Chills n Sores Appetite Loss y Chest Pressure n Fatigue y Epistaxis n Orthopnea n Sweats n Hearing loss n Palpitations n GI: Tinnitus GERD y Vision quality RESP: Abdominal Pain n : SOB/CINTRON n Nausea y Hematuria n Cough n Vomiting n Dysuria n Productive/Sputum n Hematemesis n NEURO: Urgency n Hemoptysis n Diarrhea n Headaches n Frequency n Wheezing n Constipation n Seizures n Times at night urinating n Heamatochezia Neuropathy He reports he has neuropathy in his feet catheter present n MSK: Melena Focal weakness Hesitancy n Focal Numbness Incontinence n Acute joint pain n Dizzy/Vertigo Redness n Difficulty speaking Heme/Lymph Swelling n Difficulty walking Lymphadenopathy Myalgia n Ataxia Chronic joint pain n Past Medical History: Diagnosis Date Alcohol abuse Alcohol dependence with withdrawal (HCC) 08/31/2019 Alcohol intoxication without use disorder, uncomplicated (HCC) 10/01/2019 Alcohol use disorder 09/10/2022 Alcohol withdrawal syndrome with complication (HCC) 09/27/2021 Alcohol withdrawal syndrome without complication (HCC) Alcohol withdrawal, uncomplicated (HCC) 08/31/2019 Alcohol withdrawal, with unspecified complication (HCC) 10/02/2019 Alcohol withdrawal, with unspecified complication (HCC) 10/02/2019 Alcoholism (CMS/HCC) (HCC) Anxiety Arthritis Maria De Jesus Cerebral artery occlusion with cerebral infarction (HCC) Cerebrovascular disease Depression GERD (gastroesophageal reflux disease) Maria De Jesus Hypertension Insomnia Past Surgical History: Procedure Laterality Date COLONOSCOPY 06/10/2020 EGD/Dr Madison/B CYST REMOVAL face EGD (HISTORICAL) 07/23/2022 Dr. Estrella-[facility] SMALL INTESTINE SURGERY UPPER GASTROINTESTINAL ENDOSCOPY 09/27/2021 normal WISDOM TOOTH EXTRACTION Allergies Allergen Reactions Bee Venom Swelling Nickel Rash Tramadol Nausea And Vomiting Other reaction(s): AOF Medications Prior to Admission: Current Outpatient Medications Medication Instructions acamprosate (CAMPRAL) 333 mg, Oral, 3 times daily, Do not crush, chew, or split. albuterol 108 (90 Base) MCG/ACT inhaler 2 puffs, Inhalation, Every 6 hours PRN calcipotriene (Dovonex) 0.005 % cream Topical, 2 times daily gabapentin (NEURONTIN) 600 mg, Oral, 3 times daily melatonin 5 mg, Oral, Nightly Multiple Vitamins tablet 1 tablet, Oral, Daily nicotine (Nicoderm, Step 2) 14 MG/24HR patch 1 patch, TransDERmal, Daily pantoprazole (PROTONIX) 40 mg, Oral, Daily before breakfast Thiamine Mononitrate (VITAMIN B1) 100 mg, Oral, Daily He is mainly taking the gabapentin and pantoprazole he is not really taking the other medicines Social History Social History Tobacco Use Smoking status: Every Day Current packs/day: 2.00 Average packs/day: 2.0 packs/day for 38.1 years (76.3 ttl pk-yrs) Types: Cigarettes Start date: 10/10/1985 Smokeless tobacco: Never Substance Use Topics Alcohol use: Yes Comment: Detox home for a week 0 drinks 02/17/23 He drinks several tall boys daily For nicotine with drawl he prefers to take lozenges Family History Family History Problem Relation Name Age of Onset Depression Sister Maria De Jesus Hogan Other ([id number]) Sister Maria De Jesus Hogan agoraphobia Arthritis Sister Maria De Jesus Hogan Cancer Mother Maria De Jesus Hogan colon rectal cancer; dx after age 50 Other ([id number]) Mother Maria De Jesus Hogan alcoholism Alcohol abuse Mother Maria De Jesus Hogan Stroke Mother Maria De Jesus Hogan Other ([id number]) Father Maria De Jesus Hogan h/o rheumatic fever, cardiac arrest due to bee sting Hypertension Father Maria De Jesus Hogan Physical Exam Temp (24hrs), Av.2 C (98.9 F), Min:37.2 C (98.9 F), Max:37.2 C (98.9 F) Body mass index is 32.08 kg/m .BMI Classification: Obese (BMI 30.0-39.9) BP (!) 126/99 Pulse (!) 126 Temp 37.2 C (98.9 F) (Temporal) Resp 20 Ht 5' 11 (1.803 m) Wt 230 lb (104 kg) SpO2 99% BMI 32.08 kg/m Pulse Ox: SpO2 Av % Min: 93 % Max: 99 % Supplemental O2: General appearance: He is seen in the emergency room he is resting in bed quietly participating in the interview well HEENT: Normal cephalic, atraumatic without obvious deformity. Pupils equal, round, and reactive to light. Extra ocular muscles intact. Conjunctivae/corneas clear. Neck: Supple, with full range of motion. No jugular venous distention. Trachea midline. No lymphadenopathy. Respiratory: Normal respiratory effort. Clear to auscultation, bilaterally without Rales/Wheezes/Rhonchi. Cardiovascular: Regular rate and rhythm with normal S1/S2 without murmurs, rubs or gallops. Abdomen: S abdomen soft nontender nondistended slight amount of epigastric discomfort Musculoskeletal: No clubbing, cyanosis or edema bilaterally. Full range of motion without deformity. Skin: Skin color, texture, turgor normal. No rashes or lesions. Neurologic: Neurovascularly intact without any focal sensory/motor deficits. Cranial nerves grossly intact. Labs Admission on 11/27/2023 Component Date Value SODIUM 11/27/2023 139 POTASSIUM 11/27/2023 4.2 CHLORIDE 11/27/2023 101 CARBON DIOXIDE 11/27/2023 27 ANION GAP 11/27/2023 11 UREA NITROGEN 11/27/2023 7 (L) CREATININE 11/27/2023 0.64 (L) GLUCOSE 11/27/2023 97 CALCIUM 11/27/2023 8.7 AST (SGOT) 11/27/2023 42 ALT 11/27/2023 27 ALKALINE PHOSPHATASE 11/27/2023 99 ALBUMIN 11/27/2023 4.3 BILIRUBIN, TOTAL 11/27/2023 0.4 TOTAL PROTEIN 11/27/2023 7.3 eGFR 11/27/2023 >90.0 ETHANOL IN SER/PLAS 11/27/2023 0.297 (H) AMPHETAMINE SCREEN 11/27/2023 Negative BARBITURATES SCREEN 11/27/2023 Negative BENZODIAZEPINE SCREEN 11/27/2023 Negative COCAINE METAB. SCREEN 11/27/2023 Negative METHADONE SCREEN 11/27/2023 Negative OPIATES SCREEN 11/27/2023 Negative OXYCODONE SCREEN 11/27/2023 Negative PHENCYCLIDINE SCREEN 11/27/2023 Negative Auto WBC 11/27/2023 6.0 RBC 11/27/2023 4.72 Hemoglobin 11/27/2023 15.1 Hematocrit 11/27/2023 44.2 MCV 11/27/2023 93.6 MCH 11/27/2023 32.0 MCHC 11/27/2023 34.2 RDW 11/27/2023 14.5 Platelets 11/27/2023 248 MPV 11/27/2023 8.4 (L) MAGNESIUM 11/27/2023 2.0 SARS-CoV-2 Antigen 11/27/2023 Negative E Assessment/Plan and Medical Decision Making Etoh abuse, requesting detox Patient has a known alcohol problem he wants to quit he drinks several beers daily. He is requesting detox He was seen and worked up in the emergency room currently he is tachycardic. Blood pressure normal slightly tachypneic afebrile laboratory values reveal normal kidney function normal LFTs normal CBC His ethanol level is 0.297 He will be admitted for detox right now written for as needed Ativan is much as he drinks he may need phenobarbital however he still has alcohol on board and will hold off on administering more phenobarb right now Nicotine abuse Nicotine lozenges will be given H/o cva He reports weakness of his left side had not changed He does not appear to be on antiplatelet therapy or statin at home might need to be addressed if he intended did have a stroke in the past he might have indication for statin and antiplatelet GERD I will continue his PPI I will continue his Neurontin he takes chronically at home It was just found to be dispensed regularly on his PDMP on review Resume diet Inpatient consult to addiction med placed I discussed the need for admission with the emergency provider. -DVT prophylaxis: [x] Lovenox [] Heparin [] SCDs [x] Encourage ambulation [] Already on Anticoagulation [] Pharmocologic prophylaxis on hold to due risk bleed/procedure [] Low risk, ambulatory [] Both pharmacologic and mechanical contraindicated 11/28/2023 Maria De Jesus Hogan [id number] Any scheduled follow up appointments Future Appointments Date Time Provider Department Center 12/17/2023 3:00 PM Lynda Rasheed MD [facility] Extended Emergency Contact Information Primary Emergency Contact: Mobile Relation: Spouse Portions of this note may be electronically transcribed. Please forward a copy of this H&P to the primary care physician. [employer] Work Phone: 11-28-2023 Note [employer] [facility] 11-28-2023 History and physical note History and Physical [facility] Maria De Jesus Hogan : 1965 AGE 58 y.o. YEARS Note Date 11/28/2023 Primary Care Physician:Lynda Rasheed MD Current Providers as of 11/27/2023 PCP: Lynda Rasheed MD Referring Provider: not found, starting on SatNov 27, 2023 12:00 AM Attending Provider: Steve Demarco MD, starting on SatNov 27, 2023 9:10 PM (Active) Chief Complaint: Alcohol Problem (Pt c/o ETOH abuse. States last drink was a couple hours. Pt states 8 tall boys a day typically. Pt states he's having difficulty thinking straight. ) HPI: He drinks daily, he wants to quit Several tall boys daily He reports he was feeling nauseated Tired and wanted to stop He wanted to quit and came to the ed He reports he last drank before coming to the ed He suspects he will go in withdraw, but has not been withdrawing that much yet Review of Systems: General: Skin: HEENT: Cardiovascular Fever n Rashes Difficulty chewing Chest Pain n Chills n Sores Appetite Loss y Chest Pressure n Fatigue y Epistaxis n Orthopnea n Sweats n Hearing loss n Palpitations n GI: Tinnitus GERD y Vision quality RESP: Abdominal Pain n : SOB/CINTRON n Nausea y Hematuria n Cough n Vomiting n Dysuria n Productive/Sputum n Hematemesis n NEURO: Urgency n Hemoptysis n Diarrhea n Headaches n Frequency n Wheezing n Constipation n Seizures n Times at night urinating n Heamatochezia Neuropathy He reports he has neuropathy in his feet catheter present n MSK: Melena Focal weakness Hesitancy n Focal Numbness Incontinence n Acute joint pain n Dizzy/Vertigo Redness n Difficulty speaking Heme/Lymph Swelling n Difficulty walking Lymphadenopathy Myalgia n Ataxia Chronic joint pain n Past Medical History: Diagnosis Date Alcohol abuse Alcohol dependence with withdrawal (HCC) 08/31/2019 Alcohol intoxication without use disorder, uncomplicated (HCC) 10/01/2019 Alcohol use disorder 09/10/2022 Alcohol withdrawal syndrome with complication (HCC) 09/27/2021 Alcohol withdrawal syndrome without complication (HCC) Alcohol withdrawal, uncomplicated (HCC) 08/31/2019 Alcohol withdrawal, with unspecified complication (HCC) 10/02/2019 Alcohol withdrawal, with unspecified complication (HCC) 10/02/2019 Alcoholism (CMS/HCC) (HCC) Anxiety Arthritis Maria De Jesus Cerebral artery occlusion with cerebral infarction (HCC) Cerebrovascular disease Depression GERD (gastroesophageal reflux disease) Maria De Jesus Hypertension Insomnia Past Surgical History: Procedure Laterality Date COLONOSCOPY 06/10/2020 EGD/Dr Madison/AMANDA CYST REMOVAL face EGD (HISTORICAL) 07/23/2022 Dr. Estrella-[facility] SMALL INTESTINE SURGERY UPPER GASTROINTESTINAL ENDOSCOPY 09/27/2021 normal WISDOM TOOTH EXTRACTION Allergies Allergen Reactions Bee Venom Swelling Nickel Rash Tramadol Nausea And Vomiting Other reaction(s): AOF Medications Prior to Admission: Current Outpatient Medications Medication Instructions acamprosate (CAMPRAL) 333 mg, Oral, 3 times daily, Do not crush, chew, or split. albuterol 108 (90 Base) MCG/ACT inhaler 2 puffs, Inhalation, Every 6 hours PRN calcipotriene (Dovonex) 0.005 % cream Topical, 2 times daily gabapentin (NEURONTIN) 600 mg, Oral, 3 times daily melatonin 5 mg, Oral, Nightly Multiple Vitamins tablet 1 tablet, Oral, Daily nicotine (Nicoderm, Step 2) 14 MG/24HR patch 1 patch, TransDERmal, Daily pantoprazole (PROTONIX) 40 mg, Oral, Daily before breakfast Thiamine Mononitrate (VITAMIN B1) 100 mg, Oral, Daily He is mainly taking the gabapentin and pantoprazole he is not really taking the other medicines Social History Social History Tobacco Use Smoking status: Every Day Current packs/day: 2.00 Average packs/day: 2.0 packs/day for 38.1 years (76.3 ttl pk-yrs) Types: Cigarettes Start date: 10/10/1985 Smokeless tobacco: Never Substance Use Topics Alcohol use: Yes Comment: Detox home for a week 0 drinks 02/17/23 He drinks several tall boys daily For nicotine with drawl he prefers to take lozenges Family History Family History Problem Relation Name Age of Onset Depression Sister Maria De Jesus Hogan Other ([id number]) Sister Maria De Jesus Hogan agoraphobia Arthritis Sister Maria De Jesus Hogan Cancer Mother Maria De Jesus Hogan colon rectal cancer; dx after age 50 Other ([id number]) Mother Maria De Jesus Hogan alcoholism Alcohol abuse Mother Maria De Jesus Hogan Stroke Mother Maria De Jesus Hogan Other ([id number]) Father Maria De Jesus Hogan h/o rheumatic fever, cardiac arrest due to bee sting Hypertension Father Maria De Jesus Hogan Physical Exam Temp (24hrs), Av.2 C (98.9 F), Min:37.2 C (98.9 F), Max:37.2 C (98.9 F) Body mass index is 32.08 kg/m .BMI Classification: Obese (BMI 30.0-39.9) BP (!) 126/99 Pulse (!) 126 Temp 37.2 C (98.9 F) (Temporal) Resp 20 Ht 5' 11 (1.803 m) Wt 230 lb (104 kg) SpO2 99% BMI 32.08 kg/m Pulse Ox: SpO2 Av % Min: 93 % Max: 99 % Supplemental O2: General appearance: He is seen in the emergency room he is resting in bed quietly participating in the interview well HEENT: Normal cephalic, atraumatic without obvious deformity. Pupils equal, round, and reactive to light. Extra ocular muscles intact. Conjunctivae/corneas clear. Neck: Supple, with full range of motion. No jugular venous distention. Trachea midline. No lymphadenopathy. Respiratory: Normal respiratory effort. Clear to auscultation, bilaterally without Rales/Wheezes/Rhonchi. Cardiovascular: Regular rate and rhythm with normal S1/S2 without murmurs, rubs or gallops. Abdomen: S abdomen soft nontender nondistended slight amount of epigastric discomfort Musculoskeletal: No clubbing, cyanosis or edema bilaterally. Full range of motion without deformity. Skin: Skin color, texture, turgor normal. No rashes or lesions. Neurologic: Neurovascularly intact without any focal sensory/motor deficits. Cranial nerves grossly intact. Labs Admission on 11/27/2023 Component Date Value SODIUM 11/27/2023 139 POTASSIUM 11/27/2023 4.2 CHLORIDE 11/27/2023 101 CARBON DIOXIDE 11/27/2023 27 ANION GAP 11/27/2023 11 UREA NITROGEN 11/27/2023 7 (L) CREATININE 11/27/2023 0.64 (L) GLUCOSE 11/27/2023 97 CALCIUM 11/27/2023 8.7 AST (SGOT) 11/27/2023 42 ALT 11/27/2023 27 ALKALINE PHOSPHATASE 11/27/2023 99 ALBUMIN 11/27/2023 4.3 BILIRUBIN, TOTAL 11/27/2023 0.4 TOTAL PROTEIN 11/27/2023 7.3 eGFR 11/27/2023 >90.0 ETHANOL IN SER/PLAS 11/27/2023 0.297 (H) AMPHETAMINE SCREEN 11/27/2023 Negative BARBITURATES SCREEN 11/27/2023 Negative BENZODIAZEPINE SCREEN 11/27/2023 Negative COCAINE METAB. SCREEN 11/27/2023 Negative METHADONE SCREEN 11/27/2023 Negative OPIATES SCREEN 11/27/2023 Negative OXYCODONE SCREEN 11/27/2023 Negative PHENCYCLIDINE SCREEN 11/27/2023 Negative Auto WBC 11/27/2023 6.0 RBC 11/27/2023 4.72 Hemoglobin 11/27/2023 15.1 Hematocrit 11/27/2023 44.2 MCV 11/27/2023 93.6 MCH 11/27/2023 32.0 MCHC 11/27/2023 34.2 RDW 11/27/2023 14.5 Platelets 11/27/2023 248 MPV 11/27/2023 8.4 (L) MAGNESIUM 11/27/2023 2.0 SARS-CoV-2 Antigen 11/27/2023 Negative E Assessment/Plan and Medical Decision Making Etoh abuse, requesting detox Patient has a known alcohol problem he wants to quit he drinks several beers daily. He is requesting detox He was seen and worked up in the emergency room currently he is tachycardic. Blood pressure normal slightly tachypneic afebrile laboratory values reveal normal kidney function normal LFTs normal CBC His ethanol level is 0.297 He will be admitted for detox right now written for as needed Ativan is much as he drinks he may need phenobarbital however he still has alcohol on board and will hold off on administering more phenobarb right now Nicotine abuse Nicotine lozenges will be given H/o cva He reports weakness of his left side had not changed He does not appear to be on antiplatelet therapy or statin at home might need to be addressed if he intended did have a stroke in the past he might have indication for statin and antiplatelet GERD I will continue his PPI I will continue his Neurontin he takes chronically at home It was just found to be dispensed regularly on his PDMP on review Resume diet Inpatient consult to addiction med placed I discussed the need for admission with the emergency provider. -DVT prophylaxis: [x] Lovenox [] Heparin [] SCDs [x] Encourage ambulation [] Already on Anticoagulation [] Pharmocologic prophylaxis on hold to due risk bleed/procedure [] Low risk, ambulatory [] Both pharmacologic and mechanical contraindicated 11/28/2023 Maria De Jesus Hogan [id number] Any scheduled follow up appointments Future Appointments Date Time Provider Department Center 12/17/2023 3:00 PM Lynda Rasheed MD [facility] Extended Emergency Contact Information Primary Emergency Contact: Samira Mobile Relation: Spouse Portions of this note may be electronically transcribed. Please forward a copy of this H&P to the primary care physician. documented in this encounter [facility] 11-28-2023 Nurse Note Patient presents seeking inpatient admission for alcohol detox. Drinks 4-5 Natty Daddys per day with last drink being sometime before patient arrived in the ED. Patient does not actually remember when he last drank. Wanted to get admitted today for detox because he felt himself getting sick and thought he was being unfair to his . Denies any other drug use. Smokes 1.5 ppd of tobacco. Multiple admissions for detox at [facility]. Is actually not allowed back on the detox unit at [facility] because of some incident that occurred in the past. States he tends to never follow up with therapy or other recommendations after detox. Completed IOP after which he was sober for a year, and it was the most sober he has ever been. Has been to AA but stated it did not work for him. Has been on Vivitrol before and stated that It's worth it. CIWA 10. Main withdrawal symptoms include anxiety and nausea. Patient given 97.2 mg of phenobarbital. Per chart review, it looks like he has been on Campral before. Hx of neuropathy/chronic pain. Takes Gabapentin. Denies pain. BP WNL. Denies having a history of any mental health issues. No daily meds. Denies HI or SI. States he wants to go to counseling/therapy to figure out what's in his head that causes him to continue to struggle with alcohol. States he likes to drink. Also likes the way it makes him feel normal. Does not like the withdrawals and feeling sick. Wants to get his mind right and figure out why he keeps struggling with alcohol. Wants to help his family and not . Family and health are major motivators for change. Change it 01/08 in terms of importance as well as confidence. Supports include family and . Triggers include struggling with his mental health. for 10 years. Has 3 of his own children and 4 step children. Lives with his . Unemployed. 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 No legal concerns. Has a valid ID. is able to transport patient because he does not currently drive. [place] for health insurance coverage. Plan is to admit patient medically for detox at [facility]. Would also recommend that patient follow up with IOP on discharge. Patient seemed interested in Vivitrol. Patient provided with a list of treatment resources in addition to First Step, IOP, Vivitrol, and [facility] Peer [employer]k [employer]er Installer Service pamphlets. [facility] 11-27-2023 Note NOTE: This result is for medical treatment only. Analysis performed using non-forensic procedures. [facility] 11-27-2023 Emergency department Note The following are the next steps in your Substance use Treatment Plan: Get admitted to detox then Vivitrol, IOP, and therapy afterwards. Please make sure you follow up after getting discharged from the hospital. Below are additional resources that you may find beneficial in your treatment: 12-Step: Heroin Anonymous : Dayne Gray: [phone], Luis Fernando Cloud: [phone] Narcotics Anonymous: 888-GET_HOPE (256-595-6854) HALSCIONe.org Alcohol Anonymous: akronaa.org Cocaine Anonymous: https://www.VChargehio.org/meetings/ak abe, NarAnon: 409.257.7112: 12-step program for families & friends of people with addiction. CRISIS: Homeless Hotline: 352.354.2188 Domestic Violence help line anytime: 575.597.9867 Crisis Hotline: 22/10- 256.651.3679 ADM Addiction Helpline: 253.168.7814 (available 8:30 AM to 4:00 PM ) 2-1-1 2-1-1 helps people across [facility] find local resources when they don't know where to turn for help. We are available 24 hours a day, 7 days a week. For help, simply dial -1-1 to speak to one of our trained professionals. METHADONE TREATMENT: [facility], [place] [phone] [facility] [place], [place] [phone] [facility], [place] [phone] [facility] [phone] [facility]- [phone] ext. [phone] [facility] ([place])- [phone] DETOX TREATMENT: [facility]: anytime @ [phone] for alcohol & drug addiction help. [facility], [place] [phone] [facility] coordination: [phone] (Medicare not accepted) [facility] [place]: [phone] ([place] Medicaid not accepted) [facility] [place]: [phone] ([place] Medicaid not accepted) [place], [place]: [phone] (Will Coordinate Transportation) [facility] [place]: [phone] [place], [place]: [phone], [facility] [place]: [phone] [place], [place] [phone] [facility] [place] [facility] [place]: [phone] (Will Coordinate Transportation) [facility], [place], [place] [phone] ext. [phone] [place], [place] (pt. must be medically cleared prior to admission in ED) [place], [place] [phone] [place], [place]: [phone] ([place] Medicaid not accepted) [facility], [place], [place] [phone] (Will Coordinate Transportation) [phone] OUTPATIENT TREATMENT: [facility] Addiction Medicine @ [place], [place] [phone] [facility]: Inpatient or Outpatient- [phone] 1st Step MAT Program @ [facility] ED: [phone] 1st Step MAT Program @ [facility] ED: [phone] 1st Step MAT Program @ [facility] ED: [phone], INTENSIVE OUTPATIENT PROGRAMS @ [place], [place] [phone] [place], [place] [phone] [place], [place] [phone] [place], [place] [phone] [facility]: [phone] [facility], [place], [place] [phone] [facility], [place]: [phone], [place]: [phone] [place], [place]: [phone] [facility], [place]: [phone], [place]: [phone] [facility]: [phone]; [place]: [phone] [facility] (Emphasis on minorities): [email or web address], [place], [place] [phone] [facility] SERVICES: Jarred Caruso & [place]: [phone] [place] [facility] Sch[facility] [place], [place] [phone] [facility], [place], [place] [phone] [facility] [phone] [facility] SERVICES: One [place] (180): KADEN Bland [phone] [place] Butler & [place]: [phone] RESIDENTIAL TREATMENT FACILITIES: [facility], [place], [place] [phone] (admission coordinated by ADM Gurvinder Landers ext [phone]) [facility] [place], [place]: [phone]; Men's services inpt. & women services - Outpt. [place], [place] [phone] [facility], [place], [place] [phone] [place] [facility], [place], [place] [phone] [facility], [place], [place] [phone] [facility] [place], [place] [phone] [facility], [place], [place] [phone] [facility] - [place], [place] [phone] [facility], [place], [place]-PHP, [facility], [facility] [phone] [facility] - Peer Bulk Cooler Installer service: [phone] [facility]: [phone] ext. [phone] Medicaid Health Coverage: Stem CentRx JFS: [phone] Larry Avila RN 11/27/23 1467 [facility] 11-27-2023 Emergency department Note Detox rules read and signed by patient. Witnessed by this RN. Larry Avila RN 11/27/23 7698 [facility] 11-27-2023 Physician Emergency department Note EMERGENCY DEPARTMENT ENCOUNTER Pt Name: Maria De Jesus Hogan Birthdate 1965 Date of evaluation: 11/27/2023 ED Provider: Steve Demarco MD CHIEF COMPLAINT Chief Complaint Patient presents with Alcohol Problem Pt c/o ETOH abuse. States last drink was a couple hours. Pt states 8 tall boys a day typically. Pt states he's having difficulty thinking straight. HISTORY OF PRESENT ILLNESS I wore appropriate PPE for the entirety of this encounter. HPI Maria De Jesus Hogan is a 58 y.o. person who presents to the emergency department with concern for alcohol abuse and withdrawal. He reports he been drinking constant for the last several months. He did have a period of sobriety while he was in penitentiary although appears that his last time in detox was earlier this year in June Nursing Notes were reviewed. Limitations to history: None Outside historians: None REVIEW OF SYSTEMS Review of Systems Neurological: Positive for tremors. PAST MEDICAL HISTORY Past Medical History: Diagnosis Date Alcohol abuse Alcohol dependence with withdrawal (HCC) 08/31/2019 Alcohol intoxication without use disorder, uncomplicated (HCC) 10/01/2019 Alcohol use disorder 09/10/2022 Alcohol withdrawal syndrome with complication (HCC) 09/27/2021 Alcohol withdrawal syndrome without complication (HCC) Alcohol withdrawal, uncomplicated (HCC) 08/31/2019 Alcohol withdrawal, with unspecified complication (HCC) 10/02/2019 Alcohol withdrawal, with unspecified complication (HCC) 10/02/2019 Alcoholism (CMS/HCC) (HCC) Anxiety Arthritis Maria De Jesus Cerebral artery occlusion with cerebral infarction (HCC) Cerebrovascular disease Depression GERD (gastroesophageal reflux disease) Maria De Jesus Hypertension Insomnia SURGICAL HISTORY Past Surgical History: Procedure Laterality Date COLONOSCOPY 06/10/2020 EGD/Dr Madison/[facility] CYST REMOVAL face EGD (HISTORICAL) 07/23/2022 Dr. Estrella-[facility] SMALL INTESTINE SURGERY UPPER GASTROINTESTINAL ENDOSCOPY 09/27/2021 normal WISDOM TOOTH EXTRACTION CURRENT MEDICATIONS Discharge Medication List as of 11/30/2023 10:39 AM CONTINUE these medications which have NOT CHANGED Details acamprosate (Campral) 333 MG EC tablet Take 1 tablet (333 mg) by mouth 3 times daily. Do not crush, chew, or split., Starting Sat07/31/2023, Until Sat08/30/2023, Normal albuterol 108 (90 Base) MCG/ACT inhaler Inhale 2 puffs every 6 hours as needed for wheezing or shortness of breath., Starting Sat08/01/2023, Normal calcipotriene (Dovonex) 0.005 % cream Apply topically 2 times daily., Starting Sat06/26/2023, Normal gabapentin (Neurontin) 600 MG tablet Take 1 tablet (600 mg) by mouth 3 times daily., Starting Sat08/01/2023, Normal melatonin 5 MG tablet Take 1 tablet (5 mg) by mouth Nightly., Starting Sat06/26/2023, Normal Multiple Vitamins tablet Take 1 tablet by mouth daily., Starting Sat04/24/2023, Normal nicotine (Nicoderm, Step 2) 14 MG/24HR patch Place 1 patch on the skin daily. Do not start before October 23, 2022., Starting Sat10/23/2022, Print pantoprazole (ProtoNix) 40 MG EC tablet Take 1 tablet (40 mg) by mouth every morning (before breakfast)., Starting Sat05/27/2023, Normal Thiamine Mononitrate (Vitamin B1) 100 MG tablet Take 1 tablet (100 mg) by mouth daily., Starting Sat12/10/2022, Normal ALLERGIES Bee venom, Nickel, and Tramadol FAMILY HISTORY Family History Problem Relation Name Age of Onset Depression Sister Maria De Jesus Hogan Other ([id number]) Sister Maria De Jesus Hogan agoraphobia Arthritis Sister Maria De Jesus Hogan Cancer Mother Maria De Jesus Hogan colon rectal cancer; dx after age 50 Other ([id number]) Mother Maria De Jesus Hogan alcoholism Alcohol abuse Mother Maria De Jesus Hogan Stroke Mother Maria De Jesus Hogan Other ([id number]) Father Maria De Jesus Hogan h/o rheumatic fever, cardiac arrest due to bee sting Hypertension Father Maria De Jesus Hogan SOCIAL HISTORY Social History Socioeconomic History Marital status: Tobacco Use Smoking status: Every Day Current packs/day: 2.00 Average packs/day: 2.0 packs/day for 38.1 years (76.3 ttl pk-yrs) Types: Cigarettes Start date: 10/10/1985 Smokeless tobacco: Never Vaping Use Vaping status: Never Used Substance and Sexual Activity Alcohol use: Yes Comment: Detox home for a week 0 drinks 02/17/23, 6 tall boys/ daily 11/28/23 Drug use: No Sexual activity: Yes Partners: Female control/protection: Other Comment: live with Social Determinants of Health Financial Resource Strain: Low Risk (07/28/2023) Overall Financial Resource Strain (CARDIA) Difficulty of Paying Living Expenses: Not very hard Food Insecurity: No Food Insecurity (11/28/2023) Hunger Vital Sign Worried About Running Out of Food in the Last Year: Never true Ran Out of Food in the Last Year: Never true Transportation Needs: No Transportation Needs (11/28/2023) PRAPARE - Transportation Lack of Transportation (Medical): No Lack of Transportation (Non-Medical): No Physical Activity: Inactive (07/28/2023) Exercise Vital Sign Days of Exercise per Week: 0 days Minutes of Exercise per Session: 0 min Stress: Stress Concern Present (07/28/2023) [place] [employer] Occupational [employer] - Occupational Stress Questionnaire Feeling of Stress : To some extent Social Connections: Moderately Isolated (07/28/2023) Social Connection and Isolation Panel [NHANES] Frequency of Communication with Friends and Family: Twice a week Frequency of Social Gatherings with Friends and Family: Once a week Attends Synagogue Services: Never Active Member of Clubs or Organizations: No Attends Club or Organization Meetings: Never Marital Status: Intimate Partner Violence: Not At Risk (11/28/2023) Humiliation, Afraid, Rape, and Kick questionnaire Fear of Current or Ex-Partner: No Emotionally Abused: No Physically Abused: No Sexually Abused: No Housing Stability: Low Risk (07/28/2023) Housing Stability Vital Sign Unable to Pay for Housing in the Last Year: No Number of Places Lived in the Last Year: 1 Unstable Housing in the Last Year: No SCREENINGS Mylene Coma Scale Best Eye Response: Spontaneous Best Verbal Response: Oriented Best Motor Response: Follows commands [place] Coma Scale Score: 15 PHYSICAL EXAM ED Triage Vitals [11/27/232023] Temp Heart Rate Resp BP 37.2 C (98.9 F) 108 19 116/88 SpO2 Temp Source Heart Rate Source Patient Position 93 % Temporal Monitor -- BP Location FiO2 (%) -- -- Physical Exam Vitals and nursing note reviewed. Constitutional: General: He is not in acute distress. Appearance: He is well-developed. HENT: Head: Normocephalic and atraumatic. Eyes: Conjunctiva/sclera: Conjunctivae normal. Cardiovascular: Rate and Rhythm: Normal rate and regular rhythm. Heart sounds: No murmur heard. Pulmonary: Effort: Pulmonary effort is normal. No respiratory distress. Breath sounds: Normal breath sounds. Abdominal: Palpations: Abdomen is soft. Tenderness: There is no abdominal tenderness. Musculoskeletal: General: No swelling. Cervical back: Neck supple. Skin: General: Skin is warm and dry. Capillary Refill: Capillary refill takes less than 2 seconds. Neurological: Mental Status: He is alert. Comments: Mild tremoring Psychiatric: Mood and Affect: Mood normal. DIAGNOSTIC RESULTS RADIOLOGY (Per Emergency Physician): Interpretation per the Radiologist below, if available at the time of this note: No orders to display EKG Interpretation: LABS: Labs Reviewed COMPREHENSIVE METABOLIC PANEL - Abnormal Result Value SODIUM 139 POTASSIUM 4.2 CHLORIDE 101 CARBON DIOXIDE 27 ANION GAP 11 UREA NITROGEN 7 (*) CREATININE 0.64 (*) GLUCOSE 97 CALCIUM 8.7 AST (SGOT) 42 ALT 27 ALKALINE PHOSPHATASE 99 ALBUMIN 4.3 BILIRUBIN, TOTAL 0.4 TOTAL PROTEIN 7.3 eGFR >90.0 ETHANOL - Abnormal ETHANOL IN SER/PLAS 0.297 (*) Narrative: NOTE: This result is for medical treatment only. Analysis performed using non-forensic procedures. CBC (HEMOGRAM) - Abnormal Auto WBC 6.0 RBC 4.72 Hemoglobin 15.1 Hematocrit 44.2 MCV 93.6 MCH 32.0 MCHC 34.2 RDW 14.5 Platelets 248 MPV 8.4 (*) CBC WITH AUTO DIFFERENTIAL - Abnormal Auto WBC 4.9 RBC 4.34 (*) Hemoglobin 13.7 Hematocrit 40.9 MCV 94.2 MCH 31.6 MCHC 33.5 RDW 14.4 Platelets 210 MPV 8.5 (*) nRBC 0.0 Neutrophils Relative 55.2 Lymphocytes Relative 28.5 Monocytes Relative 14.3 (*) Eosinophils Relative 1.4 Basophils Relative 0.4 Immature Grans % 0.2 Neutrophils Absolute 2.7 Lymphocytes Absolute 1.4 Monocytes Absolute 0.7 Eosinophils Absolute 0.1 Basophils Absolute 0.0 Immature Grans Absolute 0.0 BASIC METABOLIC PANEL - Abnormal SODIUM 135 POTASSIUM 4.0 CHLORIDE 99 CARBON DIOXIDE 27 UREA NITROGEN 7 (*) CREATININE 0.62 (*) GLUCOSE 108 (*) CALCIUM 8.4 ANION GAP 9 eGFR >90.0 SARS-COV-2 ANTIGEN - Normal SARS-CoV-2 Antigen Negative MAGNESIUM - Normal MAGNESIUM 2.0 DRUGS OF ABUSE AMPHETAMINE SCREEN Negative BARBITURATES SCREEN Negative BENZODIAZEPINE SCREEN Negative COCAINE METAB. SCREEN Negative METHADONE SCREEN Negative OPIATES SCREEN Negative OXYCODONE SCREEN Negative PHENCYCLIDINE SCREEN Negative Narrative: The expected value for all of the drugs listed above is Negative. The following drugs or drug groups have been screened for by Immunoassay at the following thresholds: Amphetamine class (1000 ng/mL) Barbiturates (200 ng/mL) Benzodiazepines (200 ng/mL) Cocaine (300 ng/mL) Methadone (300 ng/mL) Opiates (300 ng/mL) Oxycodone (100 ng/mL) PCP (25 ng/mL) NOTE: These results are for medical treatment only. Analysis performed using non-forensic procedures. POSITIVE results are NOT confirmed by a more specific alternative method unless requested. If confirmation is needed, request confirmation under separate order. BASIC METABOLIC PANEL WITH MG REFLEX Narrative: The following orders were created for panel order Basic Metabolic Panel w/ Mg Reflex. Procedure Abnormality Status --------- ------ Basic metabolic panel[[id number]] Abnormal Final result Please view results for these tests on the individual orders. All other labs were within normal range or not returned as of this dictation. EMERGENCY DEPARTMENT COURSE and DIFFERENTIAL DIAGNOSIS/MDM: Vitals: Vitals: 11/28/23 1945 11/29/23 0749 11/29/23 1947 11/30/23 0809 BP: 152/91 (!) 156/110 146/88 136/92 BP Location: Right arm Patient Position: Sitting Pulse: 110 96 109 112 Resp: 18 18 Temp: 36.4 C (97.5 F) 36.5 C (97.7 F) 36.8 C (98.2 F) 36.3 C (97.3 F) TempSrc: Temporal Temporal Temporal Temporal SpO2: 94% 96% 93% 95% Weight: Height: Medications Administered in the ED: Medications PHENobarbital tablet 97.2 mg (97.2 mg Oral Given 11/27/232231) LORazepam (Ativan) tablet 2 mg (2 mg Oral Given 11/28/23223) With concern for alcohol withdrawal PROCEDURES: Unless otherwise noted below, none Procedures Differential Diagnosis Considerations: Alcohol withdrawal Sources of History: Patient ED Course: Vital signs with mild tachycardia we will give him dose of phenobarbital for alcohol withdrawal symptoms. Will consult ACC coordinator if still around otherwise we will obtain clearance for detox and if medically cleared will discuss with detox provider for admission Reassessment: Discussed with detox provider who stated that patient was not excepted to their floor due to his previous behavior. Will be admitted medically once medically cleared Consideration of Admission/Observation: Independent Interpretation of Tests: Diagnostic Tests Considered but not Performed: Prescription Medications Considered but not Prescribed: Chronic Conditions Affecting Care: FINAL IMPRESSION 1. 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) DISPOSITION Admit 11/28/2023 02:01:18 AM CRITICAL CARE TIME PATIENT REFERRED TO: Lynda Rasheed MD [address] [place] [address] [address] [facility] [id number] DISCHARGE MEDICATIONS: Discharge Medication List as of 11/30/2023 10:39 AM START taking these medications Details naltrexone ER (Vivitrol) injection Inject 4 mL (380 mg) into the buttocks Once for 1 dose., Starting Sat11/29/2023, Normal (Comment: Please note this report has been produced using speech recognition software and may contain errors related to that system including errors in grammar, punctuation, and spelling, as well as words and phrases that may be inappropriate. If there are any questions or concerns please feel free to contact the dictating provider for clarification.) Steve Demarco MD (electronically signed) Emergency Medicine Provider [facility] Steve Demarco MD 11/30/23 [address] Phone: 11-27-2023 Physician Emergency department Note Emergency Department Encounter Location: [facility] ED Patient: Maria De Jesus Hogan : 1965 Date of evaluation: 11/27/2023 ED Provider: Val Fragoso MD [id number] Maria De Jesus Hogan was checked out to me by Dr Demarco. Please see his/her initial documentation for details of the patient's initial ED presentation, physical exam and completed studies. In brief, Maria De Jesus Hogan is a 58 y.o. male history of alcohol abuse that presented to the emergency department for evaluation for alcohol withdrawal. Patient states that he did have a period of sobriety while in penitentiary. He states earlier in the ER he had gone through detox. He states he drinks about 8 tall boys a day. This is however a refill corrected with drinking straight. He says he feels as though he is seeing things that are not there. I have reviewed and interpreted all of the currently available lab results and diagnostics from this visit: Results for orders placed or performed during the hospital encounter of 11/27/23 SARS-CoV-2 Antigen Specimen: Nose; Swab Result Value Ref Range SARS-CoV-2 Antigen Negative Negative Comprehensive metabolic panel Result Value Ref Range SODIUM 139 135 - 145 mmol/L POTASSIUM 4.2 3.5 - 5.1 mmol/L CHLORIDE 101 98 - 107 mmol/L CARBON DIOXIDE 27 22 - 30 mmol/L ANION GAP 11 3 - 13 mmol/L UREA NITROGEN 7 (L) 9 - 20 mg/dL CREATININE 0.64 (L) 0.66 - 1.25 mg/dL GLUCOSE 97 70 - 100 mg/dL CALCIUM 8.7 8.4 - 10.4 mg/dL AST (SGOT) 42 15 - 46 U/L ALT 27 0 - 49 U/L ALKALINE PHOSPHATASE 99 38 - 126 U/L ALBUMIN 4.3 3.5 - 5.0 g/dL BILIRUBIN, TOTAL 0.4 0.2 - 1.3 mg/dL TOTAL PROTEIN 7.3 6.3 - 8.2 g/dL eGFR >90.0 >60.0 mL/min/1.73m*2 Ethanol Result Value Ref Range ETHANOL IN SER/PLAS 0.297 (H) 0.000 - 0.010 g/dL Drug screen panel, emergency Result Value Ref Range AMPHETAMINE SCREEN Negative BARBITURATES SCREEN Negative BENZODIAZEPINE SCREEN Negative COCAINE METAB. SCREEN Negative METHADONE SCREEN Negative OPIATES SCREEN Negative OXYCODONE SCREEN Negative PHENCYCLIDINE SCREEN Negative CBC Result Value Ref Range Auto WBC 6.0 3.6 - 10.7 10*3/uL RBC 4.72 4.40 - 5.90 10*6/uL Hemoglobin 15.1 13.0 - 18.0 g/dL Hematocrit 44.2 40.0 - 52.0 % MCV 93.6 77.0 - 99.0 fL MCH 32.0 26.0 - 34.0 pg MCHC 34.2 30.5 - 36.0 % RDW 14.5 11.5 - 15.0 % Platelets 248 140 - 440 10*3/uL MPV 8.4 (L) 9.0 - 12.7 fL Magnesium Result Value Ref Range MAGNESIUM 2.0 1.6 - 2.3 mg/dL Labs Reviewed COMPREHENSIVE METABOLIC PANEL - Abnormal Result Value SODIUM 139 POTASSIUM 4.2 CHLORIDE 101 CARBON DIOXIDE 27 ANION GAP 11 UREA NITROGEN 7 (*) CREATININE 0.64 (*) GLUCOSE 97 CALCIUM 8.7 AST (SGOT) 42 ALT 27 ALKALINE PHOSPHATASE 99 ALBUMIN 4.3 BILIRUBIN, TOTAL 0.4 TOTAL PROTEIN 7.3 eGFR >90.0 ETHANOL - Abnormal ETHANOL IN SER/PLAS 0.297 (*) Narrative: NOTE: This result is for medical treatment only. Analysis performed using non-forensic procedures. CBC (HEMOGRAM) - Abnormal Auto WBC 6.0 RBC 4.72 Hemoglobin 15.1 Hematocrit 44.2 MCV 93.6 MCH 32.0 MCHC 34.2 RDW 14.5 Platelets 248 MPV 8.4 (*) SARS-COV-2 ANTIGEN - Normal SARS-CoV-2 Antigen Negative MAGNESIUM - Normal MAGNESIUM 2.0 DRUGS OF ABUSE AMPHETAMINE SCREEN Negative BARBITURATES SCREEN Negative BENZODIAZEPINE SCREEN Negative COCAINE METAB. SCREEN Negative METHADONE SCREEN Negative OPIATES SCREEN Negative OXYCODONE SCREEN Negative PHENCYCLIDINE SCREEN Negative Narrative: The expected value for all of the drugs listed above is Negative. The following drugs or drug groups have been screened for by Immunoassay at the following thresholds: Amphetamine class (1000 ng/mL) Barbiturates (200 ng/mL) Benzodiazepines (200 ng/mL) Cocaine (300 ng/mL) Methadone (300 ng/mL) Opiates (300 ng/mL) Oxycodone (100 ng/mL) PCP (25 ng/mL) NOTE: These results are for medical treatment only. Analysis performed using non-forensic procedures. POSITIVE results are NOT confirmed by a more specific alternative method unless requested. If confirmation is needed, request confirmation under separate order. No orders to display Final ED Course and MDM: In brief, Maria De Jesus Hogan is a 58 y.o. male whose care was signed out to me by the outgoing provider. In brief, patient presenting for concern for alcohol withdrawal. Patient with an alcohol level of 297. Noted to be tachycardic in the department with tremors. Workup unremarkable for any leukocytosis, anemia, or any other substances of abuse. Patient with no electrolyte abnormalities, renal function impairment, or transaminitis. Given tachycardia and EKG obtained. EKG with sinus tachycardia with no ST elevations or depressions concerning for STEMI. No axis deviation appreciated. EKG with no significant change compared to previous EKGs on file. Patient received phenobarbital 97.2 mg. On reevaluation patient continues to be tachycardic. Received a dose of lorazepam 2 mg. Discussed patient with detox medicine. Patient not a candidate for detox medicine at this time. As a result patient discussed with inpatient admitting provider who accepted patient for admission. Admitted in stable condition. Medications LORazepam (Ativan) tablet 2 mg (has no administration in time range) PHENobarbital tablet 97.2 mg (97.2 mg Oral Given 11/27/23 1686) Final Impression 1. 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 Efforts were made to edit the dictations but occasionally words are mis-transcribed.) Val Fragoso MD [employer] Vla Fragoso MD 11/28/23 0515 [facility] 08-01-2023 Telephone encounter Note Go ahead and send the prescriptions. However no further refills until patient is evaluated. We schedule an appointment with him. If unable to come in person I will okay him doing a virtual. Please pend the scripts needed refilled please [facility] 08-01-2023 Miscellaneous Notes Go ahead and send the prescriptions. However no further refills until patient is evaluated. We schedule an appointment with him. If unable to come in person I will okay him doing a virtual. Please pend the scripts needed refilled please documented in this encounter [facility] 07-31-2023 History of Present illness Narrative 1305: Discrepancy made in pyxis for Gabapentin 300mg. Did not take enough out for patient, removed only one when it should have been 2. Went to pull for another patient and count was off. Returned all gabapentin to drawer including one taken prior and re-inventoried the drawer. Then removed the 2 prescribed. Called pharmacy to verify this was the correct way to fix it. Patient up, social with peers with appropriate behavior. Patient has a good diet, taking in food/fluids. Patient is able to make needs known. Addiction Team Progress Note July 30, 2023Saturday ACTIVE PROBLEMS: Alcohol Dependence Alcohol Withdrawal When seen, awake fully oriented to person, place, time, situation; coherent, lucid Euthymic mood with congruent affect Talked with me re: desire for discharge tomorrow; Says he needs to return to work to avoid termination Says he has leny't for Intensive Outpt Program at [place] and is open to attending AA meetings, eventhough he doesn't like them. Withdrawal Assessment: Trivial tendon Tremors NO diaphoresis; VS Tachy: 100 137/84 T 36.8 Total luminal to this point: 1,166.4mg since admission Addiction Issues: Accepted of recommendation to attend DAILY Meetings; Has Outpt leny't scheduled August 04; Agrees to begin acamprosate to help cravings; Advised on effects; side effects; directions for taking PHYSICAL EXAM Constitutional: appearing well, NO distress Neuro: trivial tendon Tremors; NO fidgeting/restlessness; Reflexes brisk Skin: No diaphoresis; No lesions/rashes overtly evident Eyes: PEERLA; sclera clear Respirs: NO audible wheezing; NO cough; NO evidence of labored Breathing Cardiac: Radial pulses equal; NO tachycardic or hypertensive readings recorded. Abdomen: No distention; Muscles/skelatal: No overt deformities or edema; Cognitions: Clear mentation; coherent/lucid Psychiatric: NO evidence of thought disorder or mood distortion PSYCHIATRIC EXAM Mood: Euthymic Affect: Expressive Behaviour: Controlled Attention: Focused Speech: Even/Not pressured Thought Content: No delusions; No paranoia; Insight: Fair Judgement: fair PLAN Taper luminal to end tonite: 64.8mg at 19:00 32mg at hs Acamprosate 333mg tid OK to discharge to self care tomorrow Robyn Edmond APRN DNP [facility] Patient calm and cooperative with assessment and medications. Patient verbalizes plans to go to IOP. Patient has been on RA no issues. Patient has been ambulating hallways, independent and steady. No complaints of pain. Patient denies any withdrawal symptoms. No SI/HI/AVH. Patient is discharge focused and would like to leave tomorrow. Patient started Campral this shift no s/s of adverse reactions patient encouraged to voice any concerns to staff. [facility] Respiratory Care Department Progress Note As part of the Respiratory Assessment Program (RAP), the following Respiratory Therapist evaluation has been completed, including a chart review and clinical/physical assessment. Respiratory Therapist RAP Evaluation Guideline Points 0 1 2 3 4 Points Strongly Consider History Factor No Pulmonary conditions Stable Pulmonary condition(s) Surgery or Intervention that may impact Pulmonary system (at risk) Surgery or Intervention that is impacting Pulmonary system Active Exacerbation of Pulmonary Condition 1 Respiratory Pattern Regular, RR= 12-18 CINTRON or Increased RR= 19-24 Irregular, or RR= 25-30 SOB, talk in short sentences, or RR= 31-35 Severe SOB, accessory muscle use, one word answers, or RR>35 0 Aerosol Med(s), High Flow O2 Breath Sounds Clear Diminished in 1 lobe Diminished in ? 2 lobes Adventitious breath sounds Coarse crackles, Wheezes, or Diminished in >2 lobes 1 Aerosol Med(s), Bronchial Hygiene, Hyperinflation Cough & Sputum Strong cough, no secretion retention or production Weak cough, no secretion retention or production Weak cough, w/ production (less often than Q2hr), or secretion retention No cough, w/ secretion retention or production (less often than Q2hr) Significant secretion production (more often than Q2hr) or mucus plug 0 Aerosol Med(s), Bronchial Hygiene, Hyperinflation Level of Activity Ambulatory Ambulatory with Assist Up in chair or edge of bed (dangle) Non-ambulatory, bedridden with active ROM Completely paralyzed or without active ROM 0 Triage 5 0-2 Triage 4 3-5 Triage 3 6-10 Triage 2 11-14 Triage 1 ?15 Total 2 Triage Score = 5 TRIAGE SCORING - SUGGESTED FREQUENCIES Aerosol Therapy Bronchial Hygiene Hyperinflation Triage Score Q4h & PRN 1 Q4hWA (QID) & PRN 2 TID & PRN 3 BID & PRN 4 PRN 5 Therapy(s) Indicated Yes/No Aerosol Medication y Hyperinflation Bronchial Hygiene High Flow Oxygen Flow Rates PEF (L/Sec) IVC FVC FEV1 FEV1/FVC Patient instructed and returned demonstration on use of MDI (with spacer, as appropriate) NO RT to enter/modify frequency of treatment order in EMR/EHR to match this RAP evaluation. Based on this RAP evaluation the following therapy is being initiated: Duoneb [facility]N At the following frequency: TID PRN Comments: Thank you for involving Respiratory in the care of this patient, Patient up, social with appropriate behavior. Patient takes medication with ease. Patient is able to make needs known. Respiratory notified for breathing treatment. Addiction Medicine Progress Note Patient: Maria De Jesus Hogan Chief Complaint Patient presents with Alcohol Intoxication Problem List: Principal Problem: Alcohol withdrawal syndrome without complication (HCC) Active Problems: Severe alcohol use disorder (HCC) Subjective Interim History: Patient was sitting up in bed eating breakfast, endorses symptoms of withdrawal diaphoresis at night and tremors. Overall, withdrawal symptoms are improving. No other physical complaints voiced. Patient is tolerating meals and fluids. Did receive PRN medication overnight. Patient has not participated in group and interacted with peers. Minimal signs and/or symptoms of withdrawal observed No overt events overnight documented Objective Review of Systems: All ROS was completed and was negative unless stated above Physical Exam: Vitals: 07/29/23 0800 07/29/23 1000 07/29/23 1117 07/29/23 1221 BP: 140/93 BP Location: Patient Position: Pulse: 98 84 Resp: 16 16 Temp: 36.6 C (97.9 F) TempSrc: Temporal SpO2: 93% 91% 93% 93% Weight: Height: Physical Exam Vitals and nursing note reviewed. HENT: Mouth/Throat: Mouth: Mucous membranes are dry. Eyes: General: No scleral icterus. Cardiovascular: Rate and Rhythm: Normal rate. Pulmonary: Effort: Pulmonary effort is normal. Abdominal: General: Abdomen is flat. Musculoskeletal: General: Normal range of motion. Skin: General: Skin is warm and moist. Neurological: Mental Status: He is alert and oriented to person, place, and time. Psychiatric: Mood and Affect: Mood normal. Behavior: Behavior normal. Thought Content: Thought content normal. Judgment: Judgment normal. Medications: gabapentin, 600 mg, Oral, TID ipratropium-albuterol, 3 mL, Nebulization, TID nicotine, 1 patch, TransDERmal, Daily pantoprazole, 40 mg, Oral, qAM AC PHENobarbital, 64.8 mg, Oral, Q4H PRN medications: acetaminophen, albuterol, aluminum & magnesium hydroxide-simethicone, hydrOXYzine pamoate, loperamide, magnesium hydroxide, nicotine polacrilex, ondansetron ODT, traZODone Labs: Last 24 hours: No results found for this or any previous visit (from the past 24 hour(s)). Assessment Severe alcohol use disorder Elevated liver enzymes -Likely alcohol related Nicotine use -chronic cough The last use of alcohol was 07/27/2023. Plan Continue phenobarbital taper to manage withdrawal symptoms: 65 q 4 hours for today. PRN medications for withdrawal symptom management. CIWA scores per unit protocol. Counseled patient on biopsychosocial consequences of substance use. -Encouraged professional chemical dependency treatment. - 12 step meeting attendance. Anticipated to be discharged in 2-3 days pending: - resolution of withdrawal symptoms. - labs/tests/tasks to review: none Recovery plan: UNIVERSITY ARCHIVIST plan for further addiction treatment at [facility] JUAN Rothman NP Addiction Medicine 07/29/2023 at 1:24 PM Note: Narrative portions of note written using [employer] dictation software. Efforts are made to dictate clearly and proofread but errors in dictation still may occur. Please reach out to author with any clarifying questions. Pt awake in bed. Pt A&O x 4. Denies S/I. Denies A/V hallucination. SPO2 93% RA. Pt has mild hand tremor, moist palms. Pt medicated per MAR. Eating and drinking okay. Denies pain. Pt will continue to be monitored for safe Nutrition rescreen completed. Patient assigned a level 1. documented in this encounter [facility] 07-31-2023 Note Formatting of this n ote might be different from the original. Patient to be overheard in another patient's room discussing their treatment plans and aftercare. Patient providing his own recommendations on MAT services for patient despite not knowing patient's medical history of [place]. Patient has been informed to not involve himself in other patients care or be intrusive with treatment plans. Patient then came to UNIVERSITY ARCHIVIST's office while she was talking to resident. Patient begins to ask questions about leaving AMA. UNIVERSITY ARCHIVIST noted that patient is already being discharged and why would he inquire about leaving AMA. Patient did acknowledge that he was asking questions for another patient. UNIVERSITY ARCHIVIST explained to patient again that he needs to not involve himself with other patients aftercare plans and that she cannot discuss other patients medical care with him at current time. Patient then leaves UNIVERSITY ARCHIVIST's office and is overheard in another patient's room discussing information with her which was inappropriate. Patient that he was discussing with became distraught crying and yelling from her room. All information shared with nurse practitioner. [facility] 07-31-2023 Note Formatting of this n ote might be different from the original. Patient to be overheard in another patient's room discussing their treatment plans and aftercare. Patient providing his own recommendations on MAT services for patient despite not knowing patient's medical history of [place]. Patient has been informed to not involve himself in other patients care or be intrusive with treatment plans. Patient then came to UNIVERSITY ARCHIVIST's office while she was talking to resident. Patient begins to ask questions about leaving AMA. UNIVERSITY ARCHIVIST noted that patient is already being discharged and why would he inquire about leaving AMA. Patient did acknowledge that he was asking questions for another patient. UNIVERSITY ARCHIVIST explained to patient again that he needs to not involve himself with other patients aftercare plans and that she cannot discuss other patients medical care with him at current time. Patient then leaves UNIVERSITY ARCHIVIST's office and is overheard in another patient's room discussing information with her which was inappropriate. Patient that he was discussing with became distraught crying and yelling from her room. All information shared with nurse practitioner. [facility] 07-31-2023 Miscellaneous Notes Patient to be overheard in another patient's room discussing their treatment plans and aftercare. Patient providing his own recommendations on MAT services for patient despite not knowing patient's medical history of [place]. Patient has been informed to not involve himself in other patients care or be intrusive with treatment plans. Patient then came to UNIVERSITY ARCHIVIST's office while she was talking to resident. Patient begins to ask questions about leaving AMA. UNIVERSITY ARCHIVIST noted that patient is already being discharged and why would he inquire about leaving AMA. Patient did acknowledge that he was asking questions for another patient. UNIVERSITY ARCHIVIST explained to patient again that he needs to not involve himself with other patients aftercare plans and that she cannot discuss other patients medical care with him at current time. Patient then leaves UNIVERSITY ARCHIVIST's office and is overheard in another patient's room discussing information with her which was inappropriate. Patient that he was discussing with became distraught crying and yelling from her room. All information shared with nurse practitioner. UNIVERSITY ARCHIVIST saw patient to discuss aftercare plans and treatment post discharge. Patient was reminded about follow-up with Lai OROZCO 08/05/2023 at 1 PM. Patient still agreeable to aftercare plans. Patient denied current SI/HI/AVH. Patient reported that their would be picking them up from the hospital and taking them back home. Patient denied needing anything further from UNIVERSITY ARCHIVIST at the time. BENNIE informed patient's nurse about conversation. While attempting to talk to another patient about discharge and aftercare plans this patient decided to stop in the hallway as well and attempt to listen to and engage in conversation about another patient's healthcare treatment and plans. BENNIE explained to this patient that his need to involve himself and other patient's care was inappropriate and that he should continue to work his way to the other end of the hallway. Patient moved to the other end of the hallway as directed by BENNIE. Department: [facility] Group Topic: Other Group Date: 07/31/2023 Start Time: 1033 End Time: 1111 Facilitators: Aurora Camarena Number of Participants: 4 Group Name: Recreation Therapy Treatment Modality: Recreation Therapy Purpose: reconnect to leisure, increase socialization, support healthy coping Summary: Reconnect to Leisure: Patients were given the opportunity to engage in a healthy leisure pursuit. Group purpose is to support patients in reconnecting to the positive benefits of participation in leisure/recreation activities. Patients were offered support as needed. Discussion focused on the experience of participation. Name: Maria De Jesus Hogan Date of : 1965 MR: [id number] Appearance: Good eye contact Affect: Appropriate Behavior: Pleasant Alertness: Alert Speech: Appropriate Level/Quality of Participation: engaged Interactions with others: supportive Interventions utilized were Building rapport and engagement and Empathic listening Patient's Response to Intervention: Patient engaged fully in intervention 80's/90's trivia with demonstrated focus though left prior to completion. Patient had good eye contact during interaction. Patient was observed engaging with peers at times during the group. Patient voiced enjoyment in participation. Continue to encourage group participation as appropriate. 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 Atelectasis Hyponatremia Pneumatosis coli UGIB (upper gastrointestinal bleed) Hypochloremia Transaminitis Hematemesis with nausea Alcohol withdrawal syndrome without complication (HCC) Weakness of extremity Conversion reaction BPH (benign prostatic hyperplasia) Tachycardia Department: [facility] Group Topic: Other Group Date: 07/30/2023 Start Time: 1505 End Time: 1542 Facilitators: Aurora Camarena Number of Participants: 4 Group Name: Recreation Therapy Treatment Modality: Recreation Therapy Purpose: explore adjusting to and overcoming challenges of change Summary: Change: Opposite Hand - To allow Patients the opportunity to experience the challenge, as well as, the achievement of creating a new path. Patients are challenged to write or color with their opposite hand to create a simulation of sensations and feelings. Discussion focuses on the process of change and areas of their lives they want to address. Name: Maria De Jesus Hogan Date of : 1965 MR: [id number] Appearance: Good eye contact Affect: Appropriate Behavior: Pleasant Alertness: Alert Speech: Appropriate Level/Quality of Participation: engaged Interactions with others: supportive Interventions utilized were Empathic listening Patient's Response to Intervention: Patient engaged appropriately in intervention and discussion. Patient had good eye contact during interaction and was supportive toward peers. Patient was able to talk about past experience where they were able to learn something new including golf, as well as, talk about a future change they would like to make to support their wellness. Patient reports wanting to work on changing his environment as was discussed earlier in the day. Patient expressed understanding of the group purpose. Patient offered support and encouragement in their journey. Continue to encourage group participation as appropriate. 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 Patient reports interest IOP at [facility]. UNIVERSITY ARCHIVIST will assist with scheduling appointment. UNIVERSITY ARCHIVIST called and scheduled patient for intake assessment at [facility] 08/05/2023 at 1:00pm. All information included inpatient's discharge paperwork. Problem: Potential for Substance Withdrawal Goal: Verbalizes signs/symptoms of withdrawal Outcome: Progressing Goal: Reports signs/symptoms of withdrawal Outcome: Progressing Goal: Free of withdrawal symptoms Outcome: Progressing Problem: Drug Abuse/Detox Goal: Will have no detox symptoms and will verbalize plan for changing drug-related behavior Outcome: Progressing Behavioral Health Psycho-Social Assessment (Social Work) Date: 07/29/2023 Patient Name: Maria De Jesus Hogan : 1965 Identifying Information: Patient is a 57-year-old male admitted to for detox from alcohol. Patient is well-known to addiction medicine team as he was previously on the unit on 07/08/2023. Patient patient left the unit in 2023 with plans to engage at the [facility], patient reports however he did not schedule his appointment and relapsed immediately. Presenting Problem: Patient presented to the ED on 07/27/2023 with diffuse abdominal pain and distention for approximately 1 day. Patient reports drinking alcohol after being discharged from detox less than a month ago. He reports that he shakes but is never had a withdrawal seizure. Psychiatric History: Patient has mental health diagnosis depression anxiety. Patient denies being on any medication for mental health needs. Patient has previous engagement with outpatient mental health providers but denies any current treatment. He has previous history of engagement with [facility] [place] for outpatient mental health treatment. Patient has history of psychiatric admission. Reports admission was due to suicidal ideation while intoxicated Denies history of recent or past suicide attempts. Patient denies current SI/HI/AVH. Patient does have an extensive history of passive SI secondary to intoxication. Patient denies plan, intent, or method but reports more increased feelings of depression and sadness. Patient denies recent or past history of SIB. Substance Abuse/Use: Patient reports that he is currently drinking upwards of 9, 24 ounce Natty Daddy beers daily. Patient reports his last drink was 07/27/2023. Patient labs are positive for alcohol (0.337) and barbitutaes. Patient first drank alcohol when he was [age] years old. Patient reports that his use was regular in his 20s, and problematic 12 years ago. He cannot identify a trigger to his problematic use, other than, I like beer . He drinks the point of intoxication, blackouts, and vomiting. He denies history of withdrawal seizure, alcohol overdoses, or DTs. Patient does have extensive history of falls while intoxicated. Patient reports previous history of engagement with AA as well as IOP. Patient denies any history of MAT engagement. Patient reports his longest period of sobriety was 6 months. Patient reports however after leaving the unit during his previous admission he relapsed almost immediately. Patient has previous history of detox occurring on 07/08/2023, 02/08/2023, 05/20/2023 (medical), 10/25/2021, 02/15/2021 (left AMA), 06/09/20, 10/01/19, 08/31/19 (left AMA), 2016 (left AMA), and 2014 (left AMA). He denies history of residential treatment Medical/Self-care Issues: Patient has medical issues such as COPD, Lombardo's esophagus, macrocytosis, and HTN. Patient has ongoing struggles with self-care secondary to substance use disorder. Patient is increased in both frequency and tolerance over time. Patient also report struggling to recover from the effects of his substance use. Patient reports experiencing poor nutrition and sleep secondary to his substance use. Legal/Trauma/ History: Patient denies any current legal issues. Patient reports past legal history of child support violations. Patient denies any history of childhood abuse. Patient does report however his father when he was 11 years old which was a traumatic incident to him. Patient denies any history of trauma abuse as an adult. Patient denies any history [place] or status. Family Constellation/Childhood History: Patient reports that he is currently to his living in [facility]. Patient reports that he has 3 biological children and 4 stepchildren. Patient reports that his father in his 11 years old. Patient did not report his mother is still alive currently. Patient was born and raised in [place], [place] by his mother and father. He reports that his father when he was 11 years old, and this was traumatic for him. Patient reports that he was raised primarily by his mother for the remainder of his childhood. He denies childhood abuse. Education/Work: Patient reports that he graduated high school. 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 Patient denies SSI/SSD. Cultural/Spirituality/Leisure: Patient denies any cultural needs or concerns at the current time. Patient denies identify any yarsanism preference. It is unknown if patient is attending services anywhere currently. Patient reports he used to enjoy leisure activities such as golfing but has been unable to do so due to his ongoing substance use disorder. Support Systems/Collateral Information: Patient reports that his is his primary social. Patient reports that she is sober and supportive of his recovery needs and efforts. Patient reports that his is aware that he is admitted to the hospital. C-SSRS Actual Attempt (Past 3 Months): No (Patient has history of psychiatric admission. Reports admission was due to suicidal ideation while intoxicated. Denies recent history of suicide attempts) Actual Attempt (Lifetime): No (Patient denies past history of suicide attempts.) Interrupted Attempts (Past 3 Months): No (Patient denies) Interrupted Attempts (Lifetime): No (Patient denies) Aborted or Self-Interrupted Attempt (Past 3 Months): No (Patient denies) Aborted or Self-Interrupted Attempt (Lifetime): No (Patient denies) Preparatory Acts or Behavior (Past 3 Months): No (Patient denies) Preparatory Acts or Behavior (Lifetime): No (Patient denies) Has subject engaged in non-suicidal self-injurious behavior? (Past 3 Months): No (Patient denies recent history of SIB) Has subject engaged in non-suicidal self-injurious behavior? (Lifetime): No (Patient denies past history of SIB) Suicidal Ideation: (Patient denies current SI/HI/AVH. Patient does have an extensive history of passive SI secondary to intoxication. Patient denies plan, intent, or method but reports more increased feelings of depression and sadness.) Activating Events (Recent): Current or pending isolation or feeling alone, Recent loss(es) or other significant negative event(s) (legal, financial, relationship, etc.) Describe:: Ongoing struggles with substance abuse Clinical Status (Recent): Hopelessness, Substance abuse or dependence, Highly impulsive behavior, Major depressive episode, Agitation or severe anxiety, Perceived burden on family or others (Risk factors) Protective Factors (Recent): Identifies reasons for living, Responsibility to family or others and/or living with family (Protective factors) Describe any suicidal, self-injurious or aggressive behavior (include dates): Patient has history of psychiatric admission. Reports admission was due to suicidal ideation while intoxicated. Denies history of recent or past suicide attempts. Patient denies current SI/HI/AVH. Patient does have an extensive history of passive SI secondary to intoxication. Patient denies plan, intent, or method but reports more increased feelings of depression and sadness. Patient denies recent or past history of SIB. Patient has mental health diagnosis depression anxiety. Patient denies being on any medication for mental health needs. Patient has previous engagement with outpatient mental health providers but denies any current treatment. Plan: Patient has historically declined aftercare assistance while on the unit. UNIVERSITY ARCHIVIST will continue to work with patient to identify aftercare plans. Patient encouraged to engage in all activities that are offered to them while they are on the unit. Patient report needing additional current time. Patient encouraged to seek out UNIVERSITY ARCHIVIST unit staff should they identify any additional needs or concerns. Comment: Please note this report has been produced using speech recognition software and may contain errors related to that system including errors in grammar, punctuation, and spelling, as well as words and phrases that may be inappropriate. If there are any questions or concerns please feel free to contact the dictating provider for clarification. documented in this encounter [facility] 07-31-2023 Note Formatting of this n ote might be different from the original. UNIVERSITY ARCHIVIST saw patient to discuss aftercare plans and treatment post discharge. Patient was reminded about follow-up with [facility] 08/05/2023 at 1 PM. Patient still agreeable to aftercare plans. Patient denied current SI/HI/AVH. Patient reported that their would be picking them up from the hospital and taking them back home. Patient denied needing anything further from UNIVERSITY ARCHIVIST at the time. UNIVERSITY ARCHIVIST informed patient's nurse about conversation. [facility] 07-31-2023 Note Formatting of this n ote might be different from the original. UNIVERSITY ARCHIVIST saw patient to discuss aftercare plans and treatment post discharge. Patient was reminded about follow-up with [facility] 08/05/2023 at 1 PM. Patient still agreeable to aftercare plans. Patient denied current SI/HI/AVH. Patient reported that their would be picking them up from the hospital and taking them back home. Patient denied needing anything further from UNIVERSITY ARCHIVIST at the time. UNIVERSITY ARCHIVIST informed patient's nurse about conversation. [facility] 07-31-2023 Note Formatting of this n ote might be different from the original. While attempting to talk to another patient about discharge and aftercare plans this patient decided to stop in the hallway as well and attempt to listen to and engage in conversation about another patient's healthcare treatment and plans. UNIVERSITY ARCHIVIST explained to this patient that his need to involve himself and other patient's care was inappropriate and that he should continue to work his way to the other end of the hallway. Patient moved to the other end of the hallway as directed by BENNIE. [facility] 07-31-2023 Note Formatting of this n ote might be different from the original. While attempting to talk to another patient about discharge and aftercare plans this patient decided to stop in the hallway as well and attempt to listen to and engage in conversation about another patient's healthcare treatment and plans. UNIVERSITY ARCHIVIST explained to this patient that his need to involve himself and other patient's care was inappropriate and that he should continue to work his way to the other end of the hallway. Patient moved to the other end of the hallway as directed by BENNIE. [facility] 07-31-2023 Group counseling note Department: [facility] Group Topic: Other Group Date: 07/31/2023 Start Time: 1033 End Time: 1111 Facilitators: Aurora Camarena Number of Participants: 4 Group Name: Recreation Therapy Treatment Modality: Recreation Therapy Purpose: reconnect to leisure, increase socialization, support healthy coping Summary: Reconnect to Leisure: Patients were given the opportunity to engage in a healthy leisure pursuit. Group purpose is to support patients in reconnecting to the positive benefits of participation in leisure/recreation activities. Patients were offered support as needed. Discussion focused on the experience of participation. Name: Maria De Jesus Hogan Date of : 1965 MR: [id number] Appearance: Good eye contact Affect: Appropriate Behavior: Pleasant Alertness: Alert Speech: Appropriate Level/Quality of Participation: engaged Interactions with others: supportive Interventions utilized were Building rapport and engagement and Empathic listening Patient's Response to Intervention: Patient engaged fully in intervention 80's/90's trivia with demonstrated focus though left prior to completion. Patient had good eye contact during interaction. Patient was observed engaging with peers at times during the group. Patient voiced enjoyment in participation. Continue to encourage group participation as appropriate. 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 Patient independent with ALDS and ambulation. Patient appetite, hygiene, and sleep adequate. Patient denies SI/HI/AVH thus far. Patient being discharged later in the day. Patient attended meetings when offered. Encouraged to approach staff with any concerns or changes. Will monitor for safety. Patient has been intrusive with other patients. He has been going to rooms and offering unsolicited medical advice and recommendations for take home prescriptions and MAT services. Patient has been redirected and asked to not speak about others aftercare numerous times this shift. 1550: Patient discharged home at this time. Patient personal belongings returned and paperwork signed. Patient educated on increased risk of od due to medications in system. Patient denies SI/HI/AVH. Patient left unit ambulatory with staff. [facility] 07-31-2023 Nurse Note Patient up and visible on the unit. Patient independent with ALDS and ambulation. Patient appetite, hygiene, and sleep adequate. Patient denies SI/HI/AVH thus far. Patient being discharged later in the day. Patient attended meetings when offered. Encouraged to approach staff with any concerns or changes. Will monitor for safety. Patient has been intrusive with other patients. He has been going to rooms and offering unsolicited medical advice and recommendations for take home prescriptions and MAT services. Patient has been redirected and asked to not speak about others aftercare numerous times this shift. 1550: Patient discharged home at this time. Patient personal belongings returned and paperwork signed. Patient educated on increased risk of od due to medications in system. Patient denies SI/HI/AVH. Patient left unit ambulatory with staff. Pt alert and oriented, med compliant, pt denies SI/HI/AVH, NV&D. Pt withdrawn to room, pt has no complaints at this time, just states he wants to sleep. 2049- Trazodone given for sleep. 2149- Trazodone effective for sleep at this time, pt asleep in bed still maintaining Spo2 above 90% on room air. Pt encouraged to update staff with any change in condition. Will monitor pt for safety. Patient seclusive to room this shift. Pleasant and cooperative, compliant with medications and treatment offered. Patient independent with ADLs and ambulation. Patient appetite, hygiene, and sleep adequate. Patient remains on continuous pulse ox per order, trialed on RA, sat 91. Patient denies SI/HI/AVH thus far. Patient A&Ox4. Encouraged to approach staff with any changes or concerns. Will continue to monitor for safety. 1700: Administered PRN Vistaril for anxiety. Will monitor effectiveness. Continuous pulse ox initiated Dr. Daniel notified of pts spo2 dropping below 90% on room air and respirations of 28, supplemental oxygen nasal cannula initiated. Pt arrived from [facility] via cart with squad and security at this time. Pt was up and steady on feet. Pt oriented to room and unit, pt was just her this month towards the beginning of the month. Pt states he did have a few weeks of sobriety but when his step daughter brought home alcohol he couldn't resist the temptation to drink. Pt states she is no longer there so he feels that temptation is gone but still has not gone to AA or got a sober support which he hopes to do this time. Pt drinks 4-6 tallboys a day and smokes about 2 packs of cigarettes daily as well. Pts skin check done with 2 RN's upon arrival to unit and pt given a meal. Pts heart rate in the 130's over the past hour per report from sherri, pt medicated with vistaril of anxiety, tylenol for abdominal pain, zofran for nausea and trazodone for sleep. 0030- Pts heart rate still 135 and patient coughing so hard that pt vomited, Dr. Daniel updated on pts heart rate and current cough, new orders received for breathing treatments. 01 Pt alert and oriented, med compliant, pt denies SI/HI/AVH, NV&D. Pt encouraged to update staff with any change in condition. Will monitor pt for safety. documented in this encounter [facility] 07-31-2023 Hospital course Narrative Addiction Medicine Detox Unit Discharge Summary Patient: Maria De Jesus Hogan : 1965 Primary Care Physician: Lynda Rasheed MD Admit Date: 07/27/2023 Discharge Date: 07/31/2023 Admitting Physician: Bryan Rodriguez MD Discharge Physician: Jonatan Mckeon MD. Reason for Admission: Please see initial admission H&P written on 07/28/2023. Discharge Diagnoses Active Problems: Severe alcohol use disorder (HCC) Detoxification Course Patient was admitted to the detox unit and started on Phenobarbital. The dose was tapered according to his clinical signs and symptoms. Patient was given prn medications as well as thiamine, folic acid, baclofen, and home dose of gabapentin. Patient was monitored with the CIWA scale. On the day of discharge patient was denying residual symptoms of withdrawal. He denies any paranoia, auditory or visual hallucinations. Denied SI/HI. Patient maintained forward thinking and was motivated to continue his sobriety. Patient was compliant with the rules and regulations of the unit and was appropriate with staff and peers until time of discharge. 12:26 pm received a call from nurse and UNIVERSITY ARCHIVIST, Patient began going in other patient's room giving them medical advise. At one point, another patient began refusing a completed treatment plan and the nurse has to intervene. Patient was reminded the rule of the unit and was redirected several times by staff. He continued with this intrusive behavior. At this point, patient is being administrative discharged from the unit. acamprosate, 333 mg, Oral, TID gabapentin, 600 mg, Oral, TID nicotine, 1 patch, TransDERmal, Daily pantoprazole, 40 mg, Oral, qAM AC thiamine, 100 mg, Oral, Daily PRN medications: acetaminophen, albuterol, aluminum & magnesium hydroxide-simethicone, hydrOXYzine pamoate, ipratropium-albuterol, loperamide, magnesium hydroxide, nicotine polacrilex, ondansetron ODT, traZODone Discharge Physical Exam: Vitals: 07/30/23 2319 07/30/23 2346 07/31/23 0436 07/31/23 1014 BP: (!) 181/116 131/87 138/95 (!) 148/104 BP Location: Right arm Right arm Patient Position: Sitting Lying Pulse: 111 101 95 97 Resp: 16 19 Temp: 36.6 C (97.9 F) 36 C (96.8 F) TempSrc: Oral Temporal SpO2: 95% 94% 96% Weight: Height: Physical Exam Vitals and nursing note reviewed. Constitutional: Appearance: He is not diaphoretic. Cardiovascular: Rate and Rhythm: Normal rate. Pulmonary: Effort: Pulmonary effort is normal. Abdominal: General: Abdomen is flat. Musculoskeletal: General: Normal range of motion. Skin: General: Skin is warm and dry. Coloration: Skin is not pale. Neurological: Mental Status: He is alert and oriented to person, place, and time. Psychiatric: Mood and Affect: Mood normal. Behavior: Behavior normal. Thought Content: Thought content normal. Judgment: Judgment normal. Labs: Results for orders placed or performed during the hospital encounter of 07/27/23 SARS-CoV-2 Antigen Specimen: Nasal; Swab Result Value Ref Range SARS-CoV-2 Antigen Negative Negative CBC auto differential Result Value Ref Range Auto WBC 6.4 3.6 - 10.7 10*3/uL RBC 4.79 4.40 - 5.90 10*6/uL Hemoglobin 16.3 13.0 - 18.0 g/dL Hematocrit 46.2 40.0 - 52.0 % MCV 96.5 77.0 - 99.0 fL MCH 34.0 26.0 - 34.0 pg MCHC 35.3 30.5 - 36.0 % RDW 13.0 11.5 - 15.0 % Platelets 296 140 - 440 10*3/uL MPV 8.6 (L) 9.0 - 12.7 fL nRBC 0.0 0.0 - 2.0 /100 WBCs Neutrophils Relative 59.0 38.0 - 82.0 % Lymphocytes Relative 27.2 15.0 - 45.0 % Monocytes Relative 11.0 5.0 - 13.0 % Eosinophils Relative 1.7 0.0 - 6.0 % Basophils Relative 0.8 0.0 - 2.0 % Immature Grans % 0.3 0.0 - 2.0 % Neutrophils Absolute 3.8 1.8 - 7.5 10*3/uL Lymphocytes Absolute 1.7 1.0 - 4.3 10*3/uL Monocytes Absolute 0.7 0.0 - 0.9 10*3/uL Eosinophils Absolute 0.1 0.0 - 0.5 10*3/uL Basophils Absolute 0.1 0.0 - 0.2 10*3/uL Immature Grans Absolute 0.0 <0.1 10*3/uL Drug screen panel, emergency Result Value Ref Range AMPHETAMINE SCREEN Negative BARBITURATES SCREEN Positive BENZODIAZEPINE SCREEN Negative COCAINE METAB. SCREEN Negative METHADONE SCREEN Negative OPIATES SCREEN Negative OXYCODONE SCREEN Negative PHENCYCLIDINE SCREEN Negative Ethanol Result Value Ref Range ETHANOL IN SER/PLAS 0.337 (HH) 0.000 - 0.010 g/dL Lipase Result Value Ref Range LIPASE 282 23 - 300 U/L Basic metabolic panel Result Value Ref Range SODIUM 136 135 - 145 mmol/L POTASSIUM 3.9 3.5 - 5.1 mmol/L CHLORIDE 98 98 - 107 mmol/L CARBON DIOXIDE 26 22 - 30 mmol/L UREA NITROGEN 4 (L) 9 - 20 mg/dL CREATININE 0.62 (L) 0.66 - 1.25 mg/dL GLUCOSE 128 (H) 70 - 100 mg/dL CALCIUM 8.9 8.4 - 10.4 mg/dL ANION GAP 12 3 - 13 mmol/L eGFR >90.0 >60.0 mL/min/1.73m*2 Hepatic function panel Result Value Ref Range BILIRUBIN, TOTAL 0.6 0.2 - 1.3 mg/dL BILIRUBIN, DIRECT 0.0 0.0 - 0.3 mg/dL ALKALINE PHOSPHATASE 113 38 - 126 U/L AST (SGOT) 102 (H) 15 - 46 U/L ALT 77 (H) 0 - 49 U/L ALBUMIN 4.5 3.5 - 5.0 g/dL TOTAL PROTEIN 7.6 6.3 - 8.2 g/dL Phenobarbital level Result Value Ref Range PHENOBARBITAL 14.9 10.0 - 40.0 ug/mL ECG 12 lead Result Value Ref Range Heart Rate 99 bpm QRSD Interval 96 ms QT Interval 358 ms QTC Interval 461 ms P [place] 66 degrees QRS [place] 68 degrees T Wave [place] 46 degrees VA Interval 156 ms Discharge Medication List Medication List START taking these medications acamprosate 333 MG EC tablet; Commonly known as: Campral; Take 1 tablet (333 mg) by mouth 3 times daily. Do not crush, chew, or split. CONTINUE taking these medications albuterol 108 (90 Base) MCG/ACT inhaler; Inhale 2 puffs every 6 hours as needed for wheezing or shortness of breath. calcipotriene 0.005 % cream; Commonly known as: Dovonex; Apply topically 2 times daily. gabapentin 600 MG tablet; Commonly known as: Neurontin; Take 1 tablet (600 mg) by mouth 3 times daily for 10 days. melatonin 5 MG tablet; Take 1 tablet (5 mg) by mouth Nightly. Multiple Vitamins tablet; Take 1 tablet by mouth daily. nicotine 14 MG/24HR patch; Commonly known as: Nicoderm, Step 2; Place 1 patch on the skin daily. Do not start before October 23, 2022. pantoprazole 40 MG EC tablet; Commonly known as: ProtoNix; Take 1 tablet (40 mg) by mouth every morning (before breakfast). Thiamine Mononitrate 100 MG tablet; Commonly known as: Vitamin B1; Take 1 tablet (100 mg) by mouth daily. Discharge Instructions Instructions given to pursue chemical dependency treatment at: [facility] The patient was also instructed to: 1. Attend AA/NA meetings or a similar 12-step program daily including day of discharge if possible. 2. Abstain from any mind or mood altering substances that are not prescribed. 3. Follow up with their primary care doctor and/or psychiatrist within 1-2 weeks. Tiki Ponce APRN - [facility] 07/31/2023 at 3:44 PM I spent a total time >40 minutes counseling and coordinating care regarding patient's chemical dependency status. Note: Narrative portions of note written using [employer] dictation software. Efforts are made to dictate clearly and proofread but errors in dictation still may occur. Please reach out to author with any clarifying questions. Associated attestation - Jonatan Mckeon MD - 07/31/2023 4:30 PM EDT I have reviewed the documented history, ROS, physical exam, and decision making and agree. Jonatan Mckeon MD documented in this encounter [facility] 07-30-2023 Group counseling note Department: [facility] Group Topic: Other Group Date: 07/30/2023 Start Time: 1505 End Time: 1542 Facilitators: Aurora Camarena Number of Participants: 4 Group Name: Recreation Therapy Treatment Modality: Recreation Therapy Purpose: explore adjusting to and overcoming challenges of change Summary: Change: Opposite Hand - To allow Patients the opportunity to experience the challenge, as well as, the achievement of creating a new path. Patients are challenged to write or color with their opposite hand to create a simulation of sensations and feelings. Discussion focuses on the process of change and areas of their lives they want to address. Name: Maria De Jesus Hogan Date of : 1965 MR: [id number] Appearance: Good eye contact Affect: Appropriate Behavior: Pleasant Alertness: Alert Speech: Appropriate Level/Quality of Participation: engaged Interactions with others: supportive Interventions utilized were Empathic listening Patient's Response to Intervention: Patient engaged appropriately in intervention and discussion. Patient had good eye contact during interaction and was supportive toward peers. Patient was able to talk about past experience where they were able to learn something new including golf, as well as, talk about a future change they would like to make to support their wellness. Patient reports wanting to work on changing his environment as was discussed earlier in the day. Patient expressed understanding of the group purpose. Patient offered support and encouragement in their journey. Continue to encourage group participation as appropriate. 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 Patient approached [facility] asking for assistance with scheduling IOP. Patient reports interest IOP at [facility]. [facility] will assist with scheduling appointment. [facility] called and scheduled patient for intake assessment at [facility] 08/05/2023 at 1:00pm. All information included inpatient's discharge paperwork. [facility] 07-30-2023 Note Formatting of this n ote might be different from the original. Patient approached [facility] asking for assistance with scheduling IOP. Patient reports interest IOP at [facility]. [facility] will assist with scheduling appointment. [facility] called and scheduled patient for intake assessment at [facility] 08/05/2023 at 1:00pm. All information included inpatient's discharge paperwork. [facility] 07-29-2023 Plan of care note Problem: Potential for Substance Withdrawal Goal: Verbalizes signs/symptoms of withdrawal Outcome: Progressing Goal: Reports signs/symptoms of withdrawal Outcome: Progressing Goal: Free of withdrawal symptoms Outcome: Progressing Problem: Drug Abuse/Detox Goal: Will have no detox symptoms and will verbalize plan for changing drug-related behavior Outcome: Progressing [facility] 07-29-2023 Hospital Discharge instructions BENNIE Solis - 07/29/2023 8:08 AM EDT After detox you should abstain from any use of any mood altering chemical Appointment with your primary care physician should be scheduled It is highly recommended that you attend post hospital treatment Please read the information give to you - Intro to 12 step programs Call the National Suicide Prevention Hotline if needed at: 3-037-733-LSSX (1824) Please call the following number should you have questions regarding your discharge or aftercare appointments: [facility] documented in this encounter [facility] 07-29-2023 Note Formatting of this n ote is different from the original. Behavioral Health Psycho-Social Assessment (Social Work) Date: 07/29/2023 Patient Name: Maria De Jesus Hogan : 1965 Identifying Information: Patient is a 57-year-old male admitted to for detox from alcohol. Patient is well-known to addiction medicine team as he was previously on the unit on 07/08/2023. Patient patient left the unit in 2023 with plans to engage at the [facility], patient reports however he did not schedule his appointment and relapsed immediately. Presenting Problem: Patient presented to the ED on 07/27/2023 with diffuse abdominal pain and distention for approximately 1 day. Patient reports drinking alcohol after being discharged from detox less than a month ago. He reports that he shakes but is never had a withdrawal seizure. Psychiatric History: Patient has mental health diagnosis depression anxiety. Patient denies being on any medication for mental health needs. Patient has previous engagement with outpatient mental health providers but denies any current treatment. He has previous history of engagement with [facility] in [place] for outpatient mental health treatment. Patient has history of psychiatric admission. Reports admission was due to suicidal ideation while intoxicated Denies history of recent or past suicide attempts. Patient denies current SI/HI/AVH. Patient does have an extensive history of passive SI secondary to intoxication. Patient denies plan, intent, or method but reports more increased feelings of depression and sadness. Patient denies recent or past history of SIB. Substance Abuse/Use: Patient reports that he is currently drinking upwards of 9, 24 ounce Natty Daddy beers daily. Patient reports his last drink was 07/27/2023. Patient labs are positive for alcohol (0.337) and barbitutaes. Patient first drank alcohol when he was [age] years old. Patient reports that his use was regular in his 20s, and problematic 12 years ago. He cannot identify a trigger to his problematic use, other than, I like beer . He drinks the point of intoxication, blackouts, and vomiting. He denies history of withdrawal seizure, alcohol overdoses, or DTs. Patient does have extensive history of falls while intoxicated. Patient reports previous history of engagement with AA as well as IOP. Patient denies any history of MAT engagement. Patient reports his longest period of sobriety was 6 months. Patient reports however after leaving the unit during his previous admission he relapsed almost immediately. Patient has previous history of detox occurring on 07/08/2023, 02/08/2023, 05/20/2023 (medical), 10/25/2021, 02/15/2021 (left AMA), 06/09/20, 10/01/19, 08/31/19 (left AMA), 2016 (left AMA), and 2014 (left AMA). He denies history of residential treatment Medical/Self-care Issues: Patient has medical issues such as COPD, Lombardo's esophagus, macrocytosis, and HTN. Patient has ongoing struggles with self-care secondary to substance use disorder. Patient is increased in both frequency and tolerance over time. Patient also report struggling to recover from the effects of his substance use. Patient reports experiencing poor nutrition and sleep secondary to his substance use. Legal/Trauma/ History: Patient denies any current legal issues. Patient reports past legal history of child support violations. Patient denies any history of childhood abuse. Patient does report however his father when he was 11 years old which was a traumatic incident to him. Patient denies any history of trauma abuse as an adult. Patient denies any history [place] or status. Family Constellation/Childhood History: Patient reports that he is currently to his living in [facility]. Patient reports that he has 3 biological children and 4 stepchildren. Patient reports that his father in his 11 years old. Patient did not report his mother is still alive currently. Patient was born and raised in [place], [place] by his mother and father. He reports that his father when he was 11 years old, and this was traumatic for him. Patient reports that he was raised primarily by his mother for the remainder of his childhood. He denies childhood abuse. Education/Work: Patient reports that he graduated high school. 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 Patient denies SSI/SSD. Cultural/Spirituality/Leisure: Patient denies any cultural needs or concerns at the current time. Patient denies identify any yarsanism preference. It is unknown if patient is attending services anywhere currently. Patient reports he used to enjoy leisure activities such as golfing but has been unable to do so due to his ongoing substance use disorder. Support Systems/Collateral Information: Patient reports that his is his primary social. Patient reports that she is sober and supportive of his recovery needs and efforts. Patient reports that his is aware that he is admitted to the hospital. C-SSRS Actual Attempt (Past 3 Months): No (Patient has history of psychiatric admission. Reports admission was due to suicidal ideation while intoxicated. Denies recent history of suicide attempts) Actual Attempt (Lifetime): No (Patient denies past history of suicide attempts.) Interrupted Attempts (Past 3 Months): No (Patient denies) Interrupted Attempts (Lifetime): No (Patient denies) Aborted or Self-Interrupted Attempt (Past 3 Months): No (Patient denies) Aborted or Self-Interrupted Attempt (Lifetime): No (Patient denies) Preparatory Acts or Behavior (Past 3 Months): No (Patient denies) Preparatory Acts or Behavior (Lifetime): No (Patient denies) Has subject engaged in non-suicidal self-injurious behavior? (Past 3 Months): No (Patient denies recent history of SIB) Has subject engaged in non-suicidal self-injurious behavior? (Lifetime): No (Patient denies past history of SIB) Suicidal Ideation: (Patient denies current SI/HI/AVH. Patient does have an extensive history of passive SI secondary to intoxication. Patient denies plan, intent, or method but reports more increased feelings of depression and sadness.) Activating Events (Recent): Current or pending isolation or feeling alone, Recent loss(es) or other significant negative event(s) (legal, financial, relationship, etc.) Describe:: Ongoing struggles with substance abuse Clinical Status (Recent): Hopelessness, Substance abuse or dependence, Highly impulsive behavior, Major depressive episode, Agitation or severe anxiety, Perceived burden on family or others (Risk factors) Protective Factors (Recent): Identifies reasons for living, Responsibility to family or others and/or living with family (Protective factors) Describe any suicidal, self-injurious or aggressive behavior (include dates): Patient has history of psychiatric admission. Reports admission was due to suicidal ideation while intoxicated. Denies history of recent or past suicide attempts. Patient denies current SI/HI/AVH. Patient does have an extensive history of passive SI secondary to intoxication. Patient denies plan, intent, or method but reports more increased feelings of depression and sadness. Patient denies recent or past history of SIB. Patient has mental health diagnosis depression anxiety. Patient denies being on any medication for mental health needs. Patient has previous engagement with outpatient mental health providers but denies any current treatment. Plan: Patient has historically declined aftercare assistance while on the unit. [facility] will continue to work with patient to identify aftercare plans. Patient encouraged to engage in all activities that are offered to them while they are on the unit. Patient report needing additional current time. Patient encouraged to seek out [facility] unit staff should they identify any additional needs or concerns. Comment: Please note this report has been produced using speech recognition software and may contain errors related to that system including errors in grammar, punctuation, and spelling, as well as words and phrases that may be inappropriate. If there are any questions or concerns please feel free to contact the dictating provider for clarification. [facility] 07-29-2023 Note Formatting of this n ote is different from the original. Behavioral Health Psycho-Social Assessment (Social Work) Date: 07/29/2023 Patient Name: Maria De Jesus Hogan : 1965 Identifying Information: Patient is a 57-year-old male admitted to for detox from alcohol. Patient is well-known to addiction medicine team as he was previously on the unit on 07/08/2023. Patient patient left the unit in 2023 with plans to engage at the [facility], patient reports however he did not schedule his appointment and relapsed immediately. Presenting Problem: Patient presented to the ED on 07/27/2023 with diffuse abdominal pain and distention for approximately 1 day. Patient reports drinking alcohol after being discharged from detox less than a month ago. He reports that he shakes but is never had a withdrawal seizure. Psychiatric History: Patient has mental health diagnosis depression anxiety. Patient denies being on any medication for mental health needs. Patient has previous engagement with outpatient mental health providers but denies any current treatment. He has previous history of engagement with [facility] in [place] for outpatient mental health treatment. Patient has history of psychiatric admission. Reports admission was due to suicidal ideation while intoxicated Denies history of recent or past suicide attempts. Patient denies current SI/HI/AVH. Patient does have an extensive history of passive SI secondary to intoxication. Patient denies plan, intent, or method but reports more increased feelings of depression and sadness. Patient denies recent or past history of SIB. Substance Abuse/Use: Patient reports that he is currently drinking upwards of 9, 24 ounce Natty Daddy beers daily. Patient reports his last drink was 07/27/2023. Patient labs are positive for alcohol (0.337) and barbitutaes. Patient first drank alcohol when he was [age] years old. Patient reports that his use was regular in his 20s, and problematic 12 years ago. He cannot identify a trigger to his problematic use, other than, I like beer . He drinks the point of intoxication, blackouts, and vomiting. He denies history of withdrawal seizure, alcohol overdoses, or DTs. Patient does have extensive history of falls while intoxicated. Patient reports previous history of engagement with AA as well as IOP. Patient denies any history of MAT engagement. Patient reports his longest period of sobriety was 6 months. Patient reports however after leaving the unit during his previous admission he relapsed almost immediately. Patient has previous history of detox occurring on 07/08/2023, 02/08/2023, 05/20/2023 (medical), 10/25/2021, 02/15/2021 (left AMA), 06/09/20, 10/01/19, 08/31/19 (left AMA), 2017 (left AMA), and 2014 (left AMA). He denies history of residential treatment Medical/Self-care Issues: Patient has medical issues such as COPD, Lombardo's esophagus, macrocytosis, and HTN. Patient has ongoing struggles with self-care secondary to substance use disorder. Patient is increased in both frequency and tolerance over time. Patient also report struggling to recover from the effects of his substance use. Patient reports experiencing poor nutrition and sleep secondary to his substance use. Legal/Trauma/ History: Patient denies any current legal issues. Patient reports past legal history of child support violations. Patient denies any history of childhood abuse. Patient does report however his father when he was 11 years old which was a traumatic incident to him. Patient denies any history of trauma abuse as an adult. Patient denies any history [place] or status. Family Constellation/Childhood History: Patient reports that he is currently to his living in [facility]. Patient reports that he has 3 biological children and 4 stepchildren. Patient reports that his father in his 11 years old. Patient did not report his mother is still alive currently. Patient was born and raised in [place], [place] by his mother and father. He reports that his father when he was 11 years old, and this was traumatic for him. Patient reports that he was raised primarily by his mother for the remainder of his childhood. He denies childhood abuse. Education/Work: Patient reports that he graduated high school. 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 Patient denies SSI/SSD. Cultural/Spirituality/Leisure: Patient denies any cultural needs or concerns at the current time. Patient denies identify any yarsanism preference. It is unknown if patient is attending services anywhere currently. Patient reports he used to enjoy leisure activities such as golfing but has been unable to do so due to his ongoing substance use disorder. Support Systems/Collateral Information: Patient reports that his is his primary social. Patient reports that she is sober and supportive of his recovery needs and efforts. Patient reports that his is aware that he is admitted to the hospital. C-SSRS Actual Attempt (Past 3 Months): No (Patient has history of psychiatric admission. Reports admission was due to suicidal ideation while intoxicated. Denies recent history of suicide attempts) Actual Attempt (Lifetime): No (Patient denies past history of suicide attempts.) Interrupted Attempts (Past 3 Months): No (Patient denies) Interrupted Attempts (Lifetime): No (Patient denies) Aborted or Self-Interrupted Attempt (Past 3 Months): No (Patient denies) Aborted or Self-Interrupted Attempt (Lifetime): No (Patient denies) Preparatory Acts or Behavior (Past 3 Months): No (Patient denies) Preparatory Acts or Behavior (Lifetime): No (Patient denies) Has subject engaged in non-suicidal self-injurious behavior? (Past 3 Months): No (Patient denies recent history of SIB) Has subject engaged in non-suicidal self-injurious behavior? (Lifetime): No (Patient denies past history of SIB) Suicidal Ideation: (Patient denies current SI/HI/AVH. Patient does have an extensive history of passive SI secondary to intoxication. Patient denies plan, intent, or method but reports more increased feelings of depression and sadness.) Activating Events (Recent): Current or pending isolation or feeling alone, Recent loss(es) or other significant negative event(s) (legal, financial, relationship, etc.) Describe:: Ongoing struggles with substance abuse Clinical Status (Recent): Hopelessness, Substance abuse or dependence, Highly impulsive behavior, Major depressive episode, Agitation or severe anxiety, Perceived burden on family or others (Risk factors) Protective Factors (Recent): Identifies reasons for living, Responsibility to family or others and/or living with family (Protective factors) Describe any suicidal, self-injurious or aggressive behavior (include dates): Patient has history of psychiatric admission. Reports admission was due to suicidal ideation while intoxicated. Denies history of recent or past suicide attempts. Patient denies current SI/HI/AVH. Patient does have an extensive history of passive SI secondary to intoxication. Patient denies plan, intent, or method but reports more increased feelings of depression and sadness. Patient denies recent or past history of SIB. Patient has mental health diagnosis depression anxiety. Patient denies being on any medication for mental health needs. Patient has previous engagement with outpatient mental health providers but denies any current treatment. Plan: Patient has historically declined aftercare assistance while on the unit. [facility] will continue to work with patient to identify aftercare plans. Patient encouraged to engage in all activities that are offered to them while they are on the unit. Patient report needing additional current time. Patient encouraged to seek out [facility] unit staff should they identify any additional needs or concerns. Comment: Please note this report has been produced using speech recognition software and may contain errors related to that system including errors in grammar, punctuation, and spelling, as well as words and phrases that may be inappropriate. If there are any questions or concerns please feel free to contact the dictating provider for clarification. T [facility] 07-28-2023 Nurse Note Pt alert and oriented, med compliant, pt denies SI/HI/AVH, NV&D. Pt withdrawn to room, pt has no complaints at this time, just states he wants to sleep. 2049- Trazodone given for sleep. 2149- Trazodone effective for sleep at this time, pt asleep in bed still maintaining Spo2 above 90% on room air. Pt encouraged to update staff with any change in condition. Will monitor pt for safety. [facility] 07-28-2023 Nurse Note Patient seclusive to room this shift. Pleasant and cooperative, compliant with medications and treatment offered. Patient independent with ADLs and ambulation. Patient appetite, hygiene, and sleep adequate. Patient remains on continuous pulse ox per order, trialed on RA, sat 91. Patient denies SI/HI/AVH thus far. Patient A&Ox4. Encouraged to approach staff with any changes or concerns. Will continue to monitor for safety. 1700: Administered PRN Vistaril for anxiety. Will monitor effectiveness. [facility] 07-28-2023 History and physical note Addiction Medicine Detox Unit H&P Patient: Maria De Jesus Hogan Admit Date: 07/27/2023 Primary Care Physician: Lynda Rasheed MD Chief Complaint Patient presents with Alcohol Intoxication History of Present Illness Maria De Jesus Hogan is a 57 y.o. year old male with a PMH of anxiety, depression, stroke, HTN, CAD, chronic cough, fatty liver, Lombardo's esophagus and a severe alcohol use disorder. He presented to the ED for detox for abdominal pain and distention x 1 day. He is well known to this Addiction Medicine Team. He was last seen on the detox unit from 07/08/2023 to 07/11/2023 with plans of going to the [facility]. Patient reports that he never scheduled the appointment and relapsed almost immediately. Brief substance use history: Maria De Jesus Hogan started drinking as a teen. Problematic use began several years ago. Patient has a remote history of benzodiazepine, marijuana and cocaine use in the 80s. No known history or current use of any other illicit substances. Patient with a history of blackouts. Denies a history of DTs or withdrawal seizures. Patient's longest period of sobriety is 1 year. Patient has a history of chemical dependency treatment at [facility]. Patient has a history of psychiatric admission in 2016. Denies current SI/HI, auditory or visual hallucinations. Controlled Substance Monitoring OARRs Reviewed. On admission, a urine drug screen was positive for barbiturates and a serum alcohol level was 0.337 Current Substance Use: See HPI Substance Use History: Consequences: [] IVDA. [x] Blackouts related to substance use. [] History of withdrawal seizures. [] History of delirium tremens. [] History of overdoses. [x] Legal consequences of substance use. DUIx 1 Substance Use Disorder Criteria: 2-3 = mild; 4-5 = moderate; 6 or >6 = severe substance use disorder [x] Taking substance in larger amounts and/or for longer than intended. [x] Wanting to cut down or quit but not being able to. [] Spending a lot of time obtaining the substance. [x] Craving or a strong desire to use substance. [x] Repeatedly doesn't carry out major obligations due to substance use. [x] Using despite recurring social or interpersonal problems. [x] Reducing social, occupational, or recreational activities. [x] Recurrent use in physically hazardous situations. [x] Consistent use despite recurrent physical or psychological difficulties. [x] Tolerance (increased amounts to achieve intoxication or diminished effect). [x] Withdrawal syndrome or the substance is used to avoid withdrawal. Treatment History: [] Inpatient Rehab: denies [x] Chem Dep IOP: [facility] [x] Detoxifications: numerous. [x] 12 Step Meetings: yes [] Medication Assisted Treatment: denies. Psychiatric History: Current Psychiatrist: none Current Medications: see below Previous Medication Trials: unknown Diagnoses: depression, anxiety, depression, alcohol use disorder Psychiatric Hospitalizations: denies Previous Suicide Attempts: denies Adverse Childhood Events: denies Trauma History: denies History of Head Injuries: denies Remaining History: Social History Socioeconomic History Marital status: Spouse name: Not on file Number of children: Not on file Years of education: Not on file Highest education level: Not on file Occupational History Not on file Tobacco Use Smoking status: Every Day Packs/day: 2 Types: Cigarettes Start date: 10/10/1985 Smokeless tobacco: Never Vaping Use Vaping Use: Never used Substance and Sexual Activity Alcohol use: Yes Comment: Detox home for a week 0 drinks 02/17/23 Drug use: No Sexual activity: Yes Partners: Female control/protection: Other Comment: live with Other Topics Concern Not on file Social History Narrative Not on file Social Determinants of Health Financial Resource Strain: Low Risk (07/28/2023) Overall Financial Resource Strain (CARDIA) Difficulty of Paying Living Expenses: Not very hard Food Insecurity: No Food Insecurity (07/28/2023) Hunger Vital Sign Worried About Running Out of Food in the Last Year: Never true Ran Out of Food in the Last Year: Never true Transportation Needs: No Transportation Needs (07/28/2023) PRAPARE - Transportation Lack of Transportation (Medical): No Lack of Transportation (Non-Medical): No Physical Activity: Inactive (07/28/2023) Exercise Vital Sign Days of Exercise per Week: 0 days Minutes of Exercise per Session: 0 min Stress: Stress Concern Present (07/28/2023) [place] [employer] - Occupational Stress Questionnaire Feeling of Stress : To some extent Social Connections: Moderately Isolated (07/28/2023) Social Connection and Isolation Panel [NHANES] Frequency of Communication with Friends and Family: Twice a week Frequency of Social Gatherings with Friends and Family: Once a week Attends Synagogue Services: Never Active Member of Clubs or Organizations: No Attends Club or Organization Meetings: Never Marital Status: Intimate Partner Violence: Not At Risk (07/28/2023) Humiliation, Afraid, Rape, and Kick questionnaire Fear of Current or Ex-Partner: No Emotionally Abused: No Physically Abused: No Sexually Abused: No Housing Stability: Low Risk (07/28/2023) Housing Stability Vital Sign Unable to Pay for Housing in the Last Year: No Number of Places Lived in the Last Year: 1 Unstable Housing in the Last Year: No Past Medical History: Diagnosis Date Alcohol abuse Alcohol dependence with withdrawal (HCC) 08/31/2019 Alcohol intoxication without use disorder, uncomplicated (HCC) 10/01/2019 Alcohol use disorder 09/10/2022 Alcohol withdrawal syndrome with complication (HCC) 09/27/2021 Alcohol withdrawal, uncomplicated (HCC) 08/31/2019 Alcohol withdrawal, with unspecified complication (HCC) 10/02/2019 Alcohol withdrawal, with unspecified complication (HCC) 10/02/2019 Alcoholism (CMS/HCC) (HCC) Anxiety Arthritis Maria De Jesus Cerebral artery occlusion with cerebral infarction (HCC) Cerebrovascular disease Depression GERD (gastroesophageal reflux disease) Maria De Jesus Hypertension Insomnia Past Surgical History: Procedure Laterality Date COLONOSCOPY 06/10/2020 EGD/Dr Madison/[facility] CYST REMOVAL face EGD (HISTORICAL) 07/23/2022 Dr. Estrella-[facility] SMALL INTESTINE SURGERY UPPER GASTROINTESTINAL ENDOSCOPY 09/27/2021 normal WISDOM TOOTH EXTRACTION Family History Problem Relation Name Age of Onset Depression Sister Maria De Jesus Hogan Other ([id number]) Sister Maria De Jesus Hogan agoraphobia Arthritis Sister Maria De Jesus Hogan Cancer Mother Maria De Jesus Hogan colon rectal cancer; dx after age 50 Other ([id number]) Mother Maria De Jesus Hogan alcoholism Alcohol abuse Mother Maria De Jesus Hogan Stroke Mother Maria De Jesus Hogan Other ([id number]) Father Maria De Jesus Hogan h/o rheumatic fever, cardiac arrest due to bee sting Hypertension Father Maria De Jesus Hogan Review of Systems Review of Systems Constitutional: Positive for appetite change, diaphoresis and fatigue. Respiratory: Positive for cough. Cardiovascular: Negative. Gastrointestinal: Negative for diarrhea, nausea and vomiting. Musculoskeletal: Negative. Skin: Negative. Neurological: Positive for tremors. Negative for seizures. Psychiatric/Behavioral: Positive for sleep disturbance. The patient is not nervous/anxious. All other systems reviewed and are negative. Physical Exam Vitals: 07/28/23 0447 07/28/23 0545 07/28/23 0639 07/28/23 0828 BP: 114/70 BP Location: Left arm Patient Position: Lying Pulse: 111 100 101 Resp: Temp: 36.4 C (97.6 F) TempSrc: Temporal SpO2: 92% 94% 90% 92% Weight: Height: Physical Exam Vitals and nursing note reviewed. Cardiovascular: Rate and Rhythm: Tachycardia present. Pulmonary: Effort: Pulmonary effort is normal. Comments: O2NC Abdominal: General: There is no distension. Musculoskeletal: General: Normal range of motion. Skin: General: Skin is warm. Neurological: Mental Status: He is alert and oriented to person, place, and time. Motor: Tremor present. No seizure activity. Gait: Gait is intact. Psychiatric: Attention and Perception: He does not perceive auditory or visual hallucinations. Mood and Affect: Mood and affect normal. Speech: Speech normal. Behavior: Behavior normal. Behavior is cooperative. Thought Content: Thought content does not include homicidal or suicidal ideation. Cognition and Memory: Cognition and memory normal. Judgment: Judgment normal. Labs Last 24 hours: Recent Results (from the past 24 hour(s)) ECG 12 lead Collection Time: 07/27/23 7:05 PM Result Value Ref Range Heart Rate 99 bpm QRSD Interval 96 ms QT Interval 358 ms QTC Interval 461 ms P [place] 66 degrees QRS [place] 68 degrees T Wave [place] 46 degrees [place] Interval 156 ms CBC auto differential Collection Time: 07/27/23 7:26 PM Result Value Ref Range Auto WBC 6.4 3.6 - 10.7 10*3/uL RBC 4.79 4.40 - 5.90 10*6/uL Hemoglobin 16.3 13.0 - 18.0 g/dL Hematocrit 46.2 40.0 - 52.0 % MCV 96.5 77.0 - 99.0 fL MCH 34.0 26.0 - 34.0 pg MCHC 35.3 30.5 - 36.0 % RDW 13.0 11.5 - 15.0 % Platelets 296 140 - 440 10*3/uL MPV 8.6 (L) 9.0 - 12.7 fL nRBC 0.0 0.0 - 2.0 /100 WBCs Neutrophils Relative 59.0 38.0 - 82.0 % Lymphocytes Relative 27.2 15.0 - 45.0 % Monocytes Relative 11.0 5.0 - 13.0 % Eosinophils Relative 1.7 0.0 - 6.0 % Basophils Relative 0.8 0.0 - 2.0 % Immature Grans % 0.3 0.0 - 2.0 % Neutrophils Absolute 3.8 1.8 - 7.5 10*3/uL Lymphocytes Absolute 1.7 1.0 - 4.3 10*3/uL Monocytes Absolute 0.7 0.0 - 0.9 10*3/uL Eosinophils Absolute 0.1 0.0 - 0.5 10*3/uL Basophils Absolute 0.1 0.0 - 0.2 10*3/uL Immature Grans Absolute 0.0 <0.1 10*3/uL Ethanol Collection Time: 07/27/23 7:26 PM Result Value Ref Range ETHANOL IN SER/PLAS 0.337 (HH) 0.000 - 0.010 g/dL Lipase Collection Time: 07/27/23 7:26 PM Result Value Ref Range LIPASE 282 23 - 300 U/L Basic metabolic panel Collection Time: 07/27/23 7:26 PM Result Value Ref Range SODIUM 136 135 - 145 mmol/L POTASSIUM 3.9 3.5 - 5.1 mmol/L CHLORIDE 98 98 - 107 mmol/L CARBON DIOXIDE 26 22 - 30 mmol/L UREA NITROGEN 4 (L) 9 - 20 mg/dL CREATININE 0.62 (L) 0.66 - 1.25 mg/dL GLUCOSE 128 (H) 70 - 100 mg/dL CALCIUM 8.9 8.4 - 10.4 mg/dL ANION GAP 12 3 - 13 mmol/L eGFR >90.0 >60.0 mL/min/1.73m*2 Hepatic function panel Collection Time: 07/27/23 7:26 PM Result Value Ref Range BILIRUBIN, TOTAL 0.6 0.2 - 1.3 mg/dL BILIRUBIN, DIRECT 0.0 0.0 - 0.3 mg/dL ALKALINE PHOSPHATASE 113 38 - 126 U/L AST (SGOT) 102 (H) 15 - 46 U/L ALT 77 (H) 0 - 49 U/L ALBUMIN 4.5 3.5 - 5.0 g/dL TOTAL PROTEIN 7.6 6.3 - 8.2 g/dL Drug screen panel, emergency Collection Time: 07/27/23 7:27 PM Result Value Ref Range AMPHETAMINE SCREEN Negative BARBITURATES SCREEN Positive BENZODIAZEPINE SCREEN Negative COCAINE METAB. SCREEN Negative METHADONE SCREEN Negative OPIATES SCREEN Negative OXYCODONE SCREEN Negative PHENCYCLIDINE SCREEN Negative SARS-CoV-2 Antigen Collection Time: 07/27/23 7:28 PM Specimen: Nasal; Swab Result Value Ref Range SARS-CoV-2 Antigen Negative Negative Medications ipratropium-albuterol, 3 mL, Nebulization, TID nicotine, 1 patch, TransDERmal, Daily PHENobarbital, 64.8 mg, Oral, Q4H PRN medications: acetaminophen, aluminum & magnesium hydroxide-simethicone, hydrOXYzine pamoate, loperamide, magnesium hydroxide, nicotine polacrilex, ondansetron ODT, traZODone Assessment Severe alcohol use disorder Elevated liver enzymes -Likely alcohol related Nicotine use -chronic cough -O2NC The last use of alcohol was 07/27/2023. Plan Phenobarbital taper to manage withdrawal symptoms: 65 mg q 4 hours for today. Thiamine/folic acid Restart home medication PRN medications for withdrawal symptom management. Tobacco use and dependence Patient counseled on risks of continued tobacco use and the importance of cessation Will order nicotine patch at the patient's request CIWA scores per unit protocol. Encouraged to participate in all unit activities. Recovery plan: [facility] to assist with aftercare treatment options: Will explore treatment options Tiki Ponce APRN - [facility] 07/28/2023 at 11:11 AM Note: Narrative portions of note written using [employer] dictation software. Efforts are made to dictate clearly and proofread but errors in dictation still may occur. Please reach out to author with any clarifying questions. T [facility] 07-28-2023 History and physical note Addiction Medicine Detox Unit H&P Patient: Maria De Jesus Hogan Admit Date: 07/27/2023 Primary Care Physician: Lynda Rasheed MD Chief Complaint Patient presents with Alcohol Intoxication History of Present Illness Maria De Jesus Hogan is a 57 y.o. year old male with a PMH of anxiety, depression, stroke, HTN, CAD, chronic cough, fatty liver, Lombardo's esophagus and a severe alcohol use disorder. He presented to the ED for detox for abdominal pain and distention x 1 day. He is well known to this Addiction Medicine Team. He was last seen on the detox unit from 07/08/2023 to 07/11/2023 with plans of going to the [facility]. Patient reports that he never scheduled the appointment and relapsed almost immediately. Brief substance use history: Maria De Jesus Hogan started drinking as a teen. Problematic use began several years ago. Patient has a remote history of benzodiazepine, marijuana and cocaine use in the 80s. No known history or current use of any other illicit substances. Patient with a history of blackouts. Denies a history of DTs or withdrawal seizures. Patient's longest period of sobriety is 1 year. Patient has a history of chemical dependency treatment at [facility]. Patient has a history of psychiatric admission in 2016. Denies current SI/HI, auditory or visual hallucinations. Controlled Substance Monitoring OARRs Reviewed. On admission, a urine drug screen was positive for barbiturates and a serum alcohol level was 0.337 Current Substance Use: See HPI Substance Use History: Consequences: [] IVDA. [x] Blackouts related to substance use. [] History of withdrawal seizures. [] History of delirium tremens. [] History of overdoses. [x] Legal consequences of substance use. DUIx 1 Substance Use Disorder Criteria: 2-3 = mild; 4-5 = moderate; 6 or >6 = severe substance use disorder [x] Taking substance in larger amounts and/or for longer than intended. [x] Wanting to cut down or quit but not being able to. [] Spending a lot of time obtaining the substance. [x] Craving or a strong desire to use substance. [x] Repeatedly doesn't carry out major obligations due to substance use. [x] Using despite recurring social or interpersonal problems. [x] Reducing social, occupational, or recreational activities. [x] Recurrent use in physically hazardous situations. [x] Consistent use despite recurrent physical or psychological difficulties. [x] Tolerance (increased amounts to achieve intoxication or diminished effect). [x] Withdrawal syndrome or the substance is used to avoid withdrawal. Treatment History: [] Inpatient Rehab: denies [x] Chem Dep IOP: [facility] [x] Detoxifications: numerous. [x] 12 Step Meetings: yes [] Medication Assisted Treatment: denies. Psychiatric History: Current Psychiatrist: none Current Medications: see below Previous Medication Trials: unknown Diagnoses: depression, anxiety, depression, alcohol use disorder Psychiatric Hospitalizations: denies Previous Suicide Attempts: denies Adverse Childhood Events: denies Trauma History: denies History of Head Injuries: denies Remaining History: Social History Socioeconomic History Marital status: Spouse name: Not on file Number of children: Not on file Years of education: Not on file Highest education level: Not on file Occupational History Not on file Tobacco Use Smoking status: Every Day Packs/day: 2 Types: Cigarettes Start date: 10/10/1985 Smokeless tobacco: Never Vaping Use Vaping Use: Never used Substance and Sexual Activity Alcohol use: Yes Comment: Detox home for a week 0 drinks 02/17/23 Drug use: No Sexual activity: Yes Partners: Female control/protection: Other Comment: live with Other Topics Concern Not on file Social History Narrative Not on file Social Determinants of Health Financial Resource Strain: Low Risk (07/28/2023) Overall Financial Resource Strain (CARDIA) Difficulty of Paying Living Expenses: Not very hard Food Insecurity: No Food Insecurity (07/28/2023) Hunger Vital Sign Worried About Running Out of Food in the Last Year: Never true Ran Out of Food in the Last Year: Never true Transportation Needs: No Transportation Needs (07/28/2023) PRAPARE - Transportation Lack of Transportation (Medical): No Lack of Transportation (Non-Medical): No Physical Activity: Inactive (07/28/2023) Exercise Vital Sign Days of Exercise per Week: 0 days Minutes of Exercise per Session: 0 min Stress: Stress Concern Present (07/28/2023) [place] [employer] - Occupational Stress Questionnaire Feeling of Stress : To some extent Social Connections: Moderately Isolated (07/28/2023) Social Connection and Isolation Panel [NHANES] Frequency of Communication with Friends and Family: Twice a week Frequency of Social Gatherings with Friends and Family: Once a week Attends Synagogue Services: Never Active Member of Clubs or Organizations: No Attends Club or Organization Meetings: Never Marital Status: Intimate Partner Violence: Not At Risk (07/28/2023) Humiliation, Afraid, Rape, and Kick questionnaire Fear of Current or Ex-Partner: No Emotionally Abused: No Physically Abused: No Sexually Abused: No Housing Stability: Low Risk (07/28/2023) Housing Stability Vital Sign Unable to Pay for Housing in the Last Year: No Number of Places Lived in the Last Year: 1 Unstable Housing in the Last Year: No Past Medical History: Diagnosis Date Alcohol abuse Alcohol dependence with withdrawal (HCC) 08/31/2019 Alcohol intoxication without use disorder, uncomplicated (HCC) 10/01/2019 Alcohol use disorder 09/10/2022 Alcohol withdrawal syndrome with complication (HCC) 09/27/2021 Alcohol withdrawal, uncomplicated (HCC) 08/31/2019 Alcohol withdrawal, with unspecified complication (HCC) 10/02/2019 Alcohol withdrawal, with unspecified complication (HCC) 10/02/2019 Alcoholism (CMS/HCC) (HCC) Anxiety Arthritis Maria De Jesus Cerebral artery occlusion with cerebral infarction (HCC) Cerebrovascular disease Depression GERD (gastroesophageal reflux disease) Maria De Jesus Hypertension Insomnia Past Surgical History: Procedure Laterality Date COLONOSCOPY 06/10/2020 EGD/Dr Madison/[facility] CYST REMOVAL face EGD (HISTORICAL) 07/23/2022 Dr. Estrella-[facility] SMALL INTESTINE SURGERY UPPER GASTROINTESTINAL ENDOSCOPY 09/27/2021 normal WISDOM TOOTH EXTRACTION Family History Problem Relation Name Age of Onset Depression Sister Maria De Jesus Hogan Other ([id number]) Sister Maria De Jesus Hogan agoraphobia Arthritis Sister Maria De Jesus Hogan Cancer Mother Maria De Jesus Hogan colon rectal cancer; dx after age 50 Other ([id number]) Mother Maria De Jesus Hogan alcoholism Alcohol abuse Mother Maria De Jesus Hogan Stroke Mother Maria De Jesus Hogan Other ([id number]) Father Maria De Jesus Hogan h/o rheumatic fever, cardiac arrest due to bee sting Hypertension Father Maria De Jesus Hogan Review of Systems Review of Systems Constitutional: Positive for appetite change, diaphoresis and fatigue. Respiratory: Positive for cough. Cardiovascular: Negative. Gastrointestinal: Negative for diarrhea, nausea and vomiting. Musculoskeletal: Negative. Skin: Negative. Neurological: Positive for tremors. Negative for seizures. Psychiatric/Behavioral: Positive for sleep disturbance. The patient is not nervous/anxious. All other systems reviewed and are negative. Physical Exam Vitals: 07/28/23 0447 07/28/23 0545 07/28/23 0639 07/28/23 0828 BP: 114/70 BP Location: Left arm Patient Position: Lying Pulse: 111 100 101 Resp: Temp: 36.4 C (97.6 F) TempSrc: Temporal SpO2: 92% 94% 90% 92% Weight: Height: Physical Exam Vitals and nursing note reviewed. Cardiovascular: Rate and Rhythm: Tachycardia present. Pulmonary: Effort: Pulmonary effort is normal. Comments: O2NC Abdominal: General: There is no distension. Musculoskeletal: General: Normal range of motion. Skin: General: Skin is warm. Neurological: Mental Status: He is alert and oriented to person, place, and time. Motor: Tremor present. No seizure activity. Gait: Gait is intact. Psychiatric: Attention and Perception: He does not perceive auditory or visual hallucinations. Mood and Affect: Mood and affect normal. Speech: Speech normal. Behavior: Behavior normal. Behavior is cooperative. Thought Content: Thought content does not include homicidal or suicidal ideation. Cognition and Memory: Cognition and memory normal. Judgment: Judgment normal. Labs Last 24 hours: Recent Results (from the past 24 hour(s)) ECG 12 lead Collection Time: 07/27/23 7:05 PM Result Value Ref Range Heart Rate 99 bpm QRSD Interval 96 ms QT Interval 358 ms QTC Interval 461 ms P [place] 66 degrees QRS [place] 68 degrees T Wave [place] 46 degrees [place] Interval 156 ms CBC auto differential Collection Time: 07/27/23 7:26 PM Result Value Ref Range Auto WBC 6.4 3.6 - 10.7 10*3/uL RBC 4.79 4.40 - 5.90 10*6/uL Hemoglobin 16.3 13.0 - 18.0 g/dL Hematocrit 46.2 40.0 - 52.0 % MCV 96.5 77.0 - 99.0 fL MCH 34.0 26.0 - 34.0 pg MCHC 35.3 30.5 - 36.0 % RDW 13.0 11.5 - 15.0 % Platelets 296 140 - 440 10*3/uL MPV 8.6 (L) 9.0 - 12.7 fL nRBC 0.0 0.0 - 2.0 /100 WBCs Neutrophils Relative 59.0 38.0 - 82.0 % Lymphocytes Relative 27.2 15.0 - 45.0 % Monocytes Relative 11.0 5.0 - 13.0 % Eosinophils Relative 1.7 0.0 - 6.0 % Basophils Relative 0.8 0.0 - 2.0 % Immature Grans % 0.3 0.0 - 2.0 % Neutrophils Absolute 3.8 1.8 - 7.5 10*3/uL Lymphocytes Absolute 1.7 1.0 - 4.3 10*3/uL Monocytes Absolute 0.7 0.0 - 0.9 10*3/uL Eosinophils Absolute 0.1 0.0 - 0.5 10*3/uL Basophils Absolute 0.1 0.0 - 0.2 10*3/uL Immature Grans Absolute 0.0 <0.1 10*3/uL Ethanol Collection Time: 07/27/23 7:26 PM Result Value Ref Range ETHANOL IN SER/PLAS 0.337 (HH) 0.000 - 0.010 g/dL Lipase Collection Time: 07/27/23 7:26 PM Result Value Ref Range LIPASE 282 23 - 300 U/L Basic metabolic panel Collection Time: 07/27/23 7:26 PM Result Value Ref Range SODIUM 136 135 - 145 mmol/L POTASSIUM 3.9 3.5 - 5.1 mmol/L CHLORIDE 98 98 - 107 mmol/L CARBON DIOXIDE 26 22 - 30 mmol/L UREA NITROGEN 4 (L) 9 - 20 mg/dL CREATININE 0.62 (L) 0.66 - 1.25 mg/dL GLUCOSE 128 (H) 70 - 100 mg/dL CALCIUM 8.9 8.4 - 10.4 mg/dL ANION GAP 12 3 - 13 mmol/L eGFR >90.0 >60.0 mL/min/1.73m*2 Hepatic function panel Collection Time: 07/27/23 7:26 PM Result Value Ref Range BILIRUBIN, TOTAL 0.6 0.2 - 1.3 mg/dL BILIRUBIN, DIRECT 0.0 0.0 - 0.3 mg/dL ALKALINE PHOSPHATASE 113 38 - 126 U/L AST (SGOT) 102 (H) 15 - 46 U/L ALT 77 (H) 0 - 49 U/L ALBUMIN 4.5 3.5 - 5.0 g/dL TOTAL PROTEIN 7.6 6.3 - 8.2 g/dL Drug screen panel, emergency Collection Time: 07/27/23 7:27 PM Result Value Ref Range AMPHETAMINE SCREEN Negative BARBITURATES SCREEN Positive BENZODIAZEPINE SCREEN Negative COCAINE METAB. SCREEN Negative METHADONE SCREEN Negative OPIATES SCREEN Negative OXYCODONE SCREEN Negative PHENCYCLIDINE SCREEN Negative SARS-CoV-2 Antigen Collection Time: 07/27/23 7:28 PM Specimen: Nasal; Swab Result Value Ref Range SARS-CoV-2 Antigen Negative Negative Medications ipratropium-albuterol, 3 mL, Nebulization, TID nicotine, 1 patch, TransDERmal, Daily PHENobarbital, 64.8 mg, Oral, Q4H PRN medications: acetaminophen, aluminum & magnesium hydroxide-simethicone, hydrOXYzine pamoate, loperamide, magnesium hydroxide, nicotine polacrilex, ondansetron ODT, traZODone Assessment Severe alcohol use disorder Elevated liver enzymes -Likely alcohol related Nicotine use -chronic cough -O2NC The last use of alcohol was 07/27/2023. Plan Phenobarbital taper to manage withdrawal symptoms: 65 mg q 4 hours for today. Thiamine/folic acid Restart home medication PRN medications for withdrawal symptom management. Tobacco use and dependence Patient counseled on risks of continued tobacco use and the importance of cessation Will order nicotine patch at the patient's request CIWA scores per unit protocol. Encouraged to participate in all unit activities. Recovery plan: UNIVERSITY ARCHIVIST to assist with aftercare treatment options: Will explore treatment options Tiki Ponce APRN - RESPIRATORY SUPPORT TECHNICIAN Addiction Medicine 07/28/2023 at 11:11 AM Note: Narrative portions of note written using [employer] dictation software. Efforts are made to dictate clearly and proofread but errors in dictation still may occur. Please reach out to author with any clarifying questions. documented in this encounter [facility] 07-28-2023 Nurse Note Continuous pulse ox initiated Dr. Daniel notified of pts spo2 dropping below 90% on room air and respirations of 28, supplemental oxygen nasal cannula initiated. [facility] 07-27-2023 Nurse Note Pt arrived from [facility] via cart with squad and security at this time. Pt was up and steady on feet. Pt oriented to room and unit, pt was just her this month towards the beginning of the month. Pt states he did have a few weeks of sobriety but when his step daughter brought home alcohol he couldn't resist the temptation to drink. Pt states she is no longer there so he feels that temptation is gone but still has not gone to AA or got a sober support which he hopes to do this time. Pt drinks 4-6 tallboys a day and smokes about 2 packs of cigarettes daily as well. Pts skin check done with 2 RN's upon arrival to unit and pt given a meal. Pts heart rate in the 130's over the past hour per report from sherri, pt medicated with vistaril of anxiety, tylenol for abdominal pain, zofran for nausea and trazodone for sleep. 0030- Pts heart rate still 135 and patient coughing so hard that pt vomited, Dr. Daniel updated on pts heart rate and current cough, new orders received for breathing treatments. 01 Pt alert and oriented, med compliant, pt denies SI/HI/AVH, NV&D. Pt encouraged to update staff with any change in condition. Will monitor pt for safety. [facility] 07-27-2023 Emergency department Note [facility] patient at this time. Alpa Middleton RN 07/27/232236 [facility] 07-27-2023 Emergency department Note Report given to 4E RN at this time Alpa Middleton RN 07/27/232236 [facility] 07-27-2023 Emergency department Note [facility] en route with patient at this time. Alpa Middleton RN 07/27/232236 Report given to 4E RN at this time Alpa Middleton RN 07/27/23 4838 This will serve as my Supervisory note and shared attestation. I personally saw the patient and made/approved the management plan and take responsibility for the patient management. I did perform a substantive portion of the visit including all aspects of the Medical Decision Making. All diagnostic, treatment, and disposition decisions were made by myself in conjunction with the resident. For all further details of the patient's emergency department visit, please see their documentation. [facility] ED EMERGENCY DEPARTMENT ENCOUNTER Pt Name: Maria De Jesus Hogan Birthdate 1965 Date of evaluation: 07/27/2023 Provider: Triston Abraham MD CHIEF COMPLAINT Chief Complaint Patient presents with Alcohol Intoxication HISTORY OF PRESENT ILLNESS I wore proper PPE for the entirety of this encounter. Maria De Jesus Hogan is a 57 y.o. male who presents to the emergency department with diffuse abdominal pain and distention for approximately 1 day in the setting of drinking alcohol after being discharged from detox for about a month ago. Patient says that he had the shakes before but is never had a withdrawal seizure. He denies prior abdominal surgeries. Nursing Notes were reviewed. Limitations to history: None Outside historians: Significant other REVIEW OF SYSTEMS Constitutional: as noted in HPI, and negative for fever/chills Eyes: as noted in HPI, and negative for vision changes ENT: as noted in HPI, and negative for cough CV: as noted in HPI, and negative for chest pain, negative for palpitations Resp: as noted in HPI, and negative for shortness of breath GI: as noted in HPI : as noted in HPI, and negative for urinary symptoms MSK: as noted in HPI, and negative for muscle pain Skin: as noted in HPI, and negative for rash Neuro: as noted in HPI, and negative for headaches, negative for acute focal weakness/numbness PAST MEDICAL HISTORY Past Medical History: Diagnosis Date Alcohol abuse Alcohol dependence with withdrawal (HCC) 08/31/2019 Alcohol intoxication without use disorder, uncomplicated (HCC) 10/01/2019 Alcohol use disorder 09/10/2022 Alcohol withdrawal syndrome with complication (HCC) 09/27/2021 Alcohol withdrawal, uncomplicated (HCC) 08/31/2019 Alcohol withdrawal, with unspecified complication (HCC) 10/02/2019 Alcohol withdrawal, with unspecified complication (HCC) 10/02/2019 Alcoholism (CMS/HCC) (HCC) Anxiety Arthritis Maria De Jesus Cerebral artery occlusion with cerebral infarction (HCC) Cerebrovascular disease Depression GERD (gastroesophageal reflux disease) Maria De Jesus Hypertension Insomnia SURGICAL HISTORY Past Surgical History: Procedure Laterality Date COLONOSCOPY 06/10/2020 EGD/Dr Madison/B CYST REMOVAL face EGD (HISTORICAL) 07/23/2022 Dr. Estrella-[facility] SMALL INTESTINE SURGERY UPPER GASTROINTESTINAL ENDOSCOPY 09/27/2021 normal WISDOM TOOTH EXTRACTION CURRENT MEDICATIONS Previous Medications ALBUTEROL 108 (90 BASE) MCG/ACT INHALER Inhale 2 puffs every 6 hours as needed for wheezing or shortness of breath. CALCIPOTRIENE (DOVONEX) 0.005 % CREAM Apply topically 2 times daily. GABAPENTIN (NEURONTIN) 600 MG TABLET Take 1 tablet (600 mg) by mouth 3 times daily. MELATONIN 5 MG TABLET Take 1 tablet (5 mg) by mouth Nightly. MULTIPLE VITAMINS TABLET Take 1 tablet by mouth daily. NICOTINE (NICODERM, STEP 2) 14 MG/24HR PATCH Place 1 patch on the skin daily. Do not start before October 23, 2022. PANTOPRAZOLE (PROTONIX) 40 MG EC TABLET Take 1 tablet (40 mg) by mouth every morning (before breakfast). THIAMINE MONONITRATE (VITAMIN B1) 100 MG TABLET Take 1 tablet (100 mg) by mouth daily. ALLERGIES Bee venom, Nickel, and Tramadol FAMILY HISTORY Family History Problem Relation Name Age of Onset Depression Sister Maria De Jesus Hogan Other ([id number]) Sister Maria De Jesus Hogan agoraphobia Arthritis Sister Maria De Jesus Hogan Cancer Mother Maria De Jesus Hogan colon rectal cancer; dx after age 50 Other ([id number]) Mother Maria De Jesus Hogan alcoholism Alcohol abuse Mother Maria De Jesus Hogan Stroke Mother Maria De Jesus Hogan Other ([id number]) Father Maria De Jesus Hogan h/o rheumatic fever, cardiac arrest due to bee sting Hypertension Father Maria De Jesus Hogan SOCIAL HISTORY Social History Socioeconomic History Marital status: Tobacco Use Smoking status: Every Day Packs/day: 2 Types: Cigarettes Start date: 10/10/1985 Smokeless tobacco: Never Vaping Use Vaping Use: Never used Substance and Sexual Activity Alcohol use: Yes Comment: Detox home for a week 0 drinks 02/17/23 Drug use: No Sexual activity: Yes Partners: Female control/protection: Other Comment: live with Social Determinants of Health Financial Resource Strain: Low Risk (07/09/2023) Overall Financial Resource Strain (CARDIA) Difficulty of Paying Living Expenses: Not very hard Food Insecurity: No Food Insecurity (07/09/2023) Hunger Vital Sign Worried About Running Out of Food in the Last Year: Never true Ran Out of Food in the Last Year: Never true Transportation Needs: No Transportation Needs (07/09/2023) PRAPARE - Transportation Lack of Transportation (Medical): No Lack of Transportation (Non-Medical): No Physical Activity: Inactive (07/09/2023) Exercise Vital Sign Days of Exercise per Week: 0 days Minutes of Exercise per Session: 0 min Stress: Stress Concern Present (07/09/2023) [place] [employer] - Occupational Stress Questionnaire Feeling of Stress : Very much Social Connections: Moderately Isolated (07/09/2023) Social Connection and Isolation Panel [NHANES] Frequency of Communication with Friends and Family: More than three times a week Frequency of Social Gatherings with Friends and Family: More than three times a week Attends Synagogue Services: Never Active Member of Clubs or Organizations: No Attends Club or Organization Meetings: Never Marital Status: Intimate Partner Violence: Not At Risk (07/09/2023) Humiliation, Afraid, Rape, and Kick questionnaire Fear of Current or Ex-Partner: No Emotionally Abused: No Physically Abused: No Sexually Abused: No Housing Stability: Low Risk (07/09/2023) Housing Stability Vital Sign Unable to Pay for Housing in the Last Year: No Number of Places Lived in the Last Year: 1 Unstable Housing in the Last Year: No SCREENINGS PHYSICAL EXAM ED Triage Vitals [07/27/23 1844] Temp Heart Rate Resp BP 36.9 C (98.4 F) (!) 116 20 (!) 143/101 SpO2 Temp Source Heart Rate Source Patient Position 96 % Temporal Monitor -- BP Location FiO2 (%) -- -- Constitutional: No acute distress HEENT:Head: Atraumatic/normocephalic Eyes: Conjunctivae normal. ENT: Mucous membranes moist. CV: RRR RESP: CTAB, good respiratory effort, no increased wob GI: Abdomen soft, non-tender, mildly distended, +BS, no guarding or rebound tenderness MSK: Normal bulk and tone, no gross deformity EXTR: Warm and well perfused, no edema SKIN: No rash/bruising/erythema PSYCH: Appropriate affect, cooperative behavior NEURO: Alert and oriented x 3, face symmetric, no slurred speech DIAGNOSTIC RESULTS Procedures/EKG: EKG was reviewed by myself. Physician EKG interpretation can be found in [facility] RADIOLOGY (Per Emergency Physician): Interpretation per the Radiologist below, if available at the time of this note: CT abdomen pelvis w contrast (Results Pending) LABS: Labs Reviewed SARS-COV-2 ANTIGEN CBC WITH AUTO DIFFERENTIAL DRUGS OF ABUSE ETHANOL LIPASE BASIC METABOLIC PANEL HEPATIC FUNCTION PANEL EMERGENCY DEPARTMENT COURSE and DIFFERENTIAL DIAGNOSIS/MDM: Vitals: Vitals: 07/27/23 1844 BP: (!) 143/101 Pulse: (!) 116 Resp: 20 Temp: 36.9 C (98.4 F) TempSrc: Temporal SpO2: 96% Weight: 95.3 kg (210 lb) Medications PHENobarbital (Luminal) tablet 97.2 mg (has no administration in time range) sodium chloride 0.9 % bolus 1,000 mL (has no administration in time range) I personally saw the patient and performed a substantive portion of the visit including all aspects of the medical decision making. Patient appears nontoxic. Tachycardic and mildly hypertensive. This could be secondary to dehydration and/or withdrawal. I ordered 1 L of IV fluids for dehydration and phenobarbital p.o. for mild withdrawal. Subsequently given Ativan 2 mg IV for withdrawal. Ethanol level is still quite elevated. Workup for abdominal pain is reassuring against an acute surgical abdominal emergency. Pt admitted to detox. Diagnoses as of 07/27/236 Alcohol withdrawal syndrome without complication (HCC) External records reviewed: Inpatient notes-addiction medicine discharge summary. Addiction medicine consult note from May 21 Diagnostics interpreted by me: As above Discussions with other clinicians: As above Chronic conditions impacting care: Alcohol use disorder ED Medications managed: Medications PHENobarbital (Luminal) tablet 97.2 mg (has no administration in time range) sodium chloride 0.9 % bolus 1,000 mL (has no administration in time range) CRITICAL CARE TIME I personally saw the patient and independently provided 0 minutes of non-concurrent critical care out of the total shared critical care time provided. PROCEDURES: Unless otherwise noted below, none Procedures Patients symptoms are consistent with sepsis, severe sepsis, or septic shock (If yes use .sepsiscoremeasure): no FINAL IMPRESSION No diagnosis found. DISPOSITION/PLAN PATIENT REFERRED TO: No follow-up provider specified. DISCHARGE MEDICATIONS: New Prescriptions No medications on file (Please note: Portions of this note were completed with a voice recognition program. Efforts were made to edit the dictations but occasionally words and phrases are mis-transcribed.) Triston Abraham MD PATRICIA Emergency Medicine Physician [facility] Triston Abraham MD 07/27/232225 EMERGENCY DEPARTMENT ENCOUNTER Pt Name: Maria De Jesus Hogan Birthdate 1965 Date of evaluation: 07/27/2023 ED Provider: Rosalina Burgos DO CHIEF COMPLAINT Chief Complaint Patient presents with Alcohol Intoxication HISTORY OF PRESENT ILLNESS (Location/Symptom, Timing/Onset, Context/Setting, Quality, Duration, Modifying Factors, Severity) Note limiting factors. I wore appropriate PPE for the entirety of this encounter. HPI Maria De Jesus Hogan is a 57 y.o. who presents to the emergency department seeking detox from alcohol. Describes a feeling as though his organs are shutting down. Does have some generalized abdominal bloating/pain as well as nausea. Says he drinks about 4-5 tall boy beers in a day. No recreational drug use. Says that he was discharged from inpatient detox about a month ago. Nursing Notes were reviewed. Limitations to history: None Outside historians: Significant other REVIEW OF SYSTEMS Review of Systems Pertinent positives and negatives as per HPI. PAST MEDICAL HISTORY Past Medical History: Diagnosis Date Alcohol abuse Alcohol dependence with withdrawal (HCC) 08/31/2019 Alcohol intoxication without use disorder, uncomplicated (HCC) 10/01/2019 Alcohol use disorder 09/10/2022 Alcohol withdrawal syndrome with complication (HCC) 09/27/2021 Alcohol withdrawal, uncomplicated (HCC) 08/31/2019 Alcohol withdrawal, with unspecified complication (HCC) 10/02/2019 Alcohol withdrawal, with unspecified complication (HCC) 10/02/2019 Alcoholism (CMS/HCC) (HCC) Anxiety Arthritis Maria De Jesus Cerebral artery occlusion with cerebral infarction (HCC) Cerebrovascular disease Depression GERD (gastroesophageal reflux disease) Maria De Jesus Hypertension Insomnia SURGICAL HISTORY Past Surgical History: Procedure Laterality Date COLONOSCOPY 06/10/2020 EGD/Dr Madison/[facility]ANDA CYST REMOVAL face EGD (HISTORICAL) 07/23/2022 Dr. Estrella-[facility] SMALL INTESTINE SURGERY UPPER GASTROINTESTINAL ENDOSCOPY 09/27/2021 normal WISDOM TOOTH EXTRACTION CURRENT MEDICATIONS Current Discharge Medication List CONTINUE these medications which have NOT CHANGED Details albuterol 108 (90 Base) MCG/ACT inhaler Inhale 2 puffs every 6 hours as needed for wheezing or shortness of breath. Qty: 18 g, Refills: 3 calcipotriene (Dovonex) 0.005 % cream Apply topically 2 times daily. Qty: 60 g, Refills: 3 Associated Diagnoses: Psoriasiform seborrheic dermatitis gabapentin (Neurontin) 600 MG tablet Take 1 tablet (600 mg) by mouth 3 times daily. Qty: 90 tablet, Refills: 0 Associated Diagnoses: Chronic left shoulder pain melatonin 5 MG tablet Take 1 tablet (5 mg) by mouth Nightly. Qty: 90 tablet, Refills: 1 Multiple Vitamins tablet Take 1 tablet by mouth daily. Qty: 90 tablet, Refills: 1 nicotine (Nicoderm, Step 2) 14 MG/24HR patch Place 1 patch on the skin daily. Do not start before October 23, 2022. Qty: 30 patch, Refills: 0 pantoprazole (ProtoNix) 40 MG EC tablet Take 1 tablet (40 mg) by mouth every morning (before breakfast). Qty: 90 tablet, Refills: 0 Associated Diagnoses: Elevated liver enzymes Thiamine Mononitrate (Vitamin B1) 100 MG tablet Take 1 tablet (100 mg) by mouth daily. Qty: 90 tablet, Refills: 1 ALLERGIES Bee venom, Nickel, and Tramadol FAMILY HISTORY Family History Problem Relation Name Age of Onset Depression Sister Maria De Jesus Hoagn Other ([id number]) Sister Maria De Jesus Hogan agoraphobia Arthritis Sister Maria De Jesus Hogan Cancer Mother Maria De Jesus Hogan colon rectal cancer; dx after age 50 Other ([id number]) Mother Maria De Jesus Hogan alcoholism Alcohol abuse Mother Maria De Jesus Hogan Stroke Mother Maria De Jesus Hogan Other ([id number]) Father Maria De Jesus Hogan h/o rheumatic fever, cardiac arrest due to bee sting Hypertension Father Maria De Jesus Hogan SOCIAL HISTORY Social History Socioeconomic History Marital status: Tobacco Use Smoking status: Every Day Packs/day: 2 Types: Cigarettes Start date: 10/10/1985 Smokeless tobacco: Never Vaping Use Vaping Use: Never used Substance and Sexual Activity Alcohol use: Yes Comment: Detox home for a week 0 drinks 02/17/23 Drug use: No Sexual activity: Yes Partners: Female control/protection: Other Comment: live with Social Determinants of Health Financial Resource Strain: Low Risk (07/09/2023) Overall Financial Resource Strain (CARDIA) Difficulty of Paying Living Expenses: Not very hard Food Insecurity: No Food Insecurity (07/09/2023) Hunger Vital Sign Worried About Running Out of Food in the Last Year: Never true Ran Out of Food in the Last Year: Never true Transportation Needs: No Transportation Needs (07/09/2023) PRAPARE - Transportation Lack of Transportation (Medical): No Lack of Transportation (Non-Medical): No Physical Activity: Inactive (07/09/2023) Exercise Vital Sign Days of Exercise per Week: 0 days Minutes of Exercise per Session: 0 min Stress: Stress Concern Present (07/09/2023) [place] [employer] - Occupational Stress Questionnaire Feeling of Stress : Very much Social Connections: Moderately Isolated (07/09/2023) Social Connection and Isolation Panel [NHANES] Frequency of Communication with Friends and Family: More than three times a week Frequency of Social Gatherings with Friends and Family: More than three times a week Attends Synagogue Services: Never Active Member of Clubs or Organizations: No Attends Club or Organization Meetings: Never Marital Status: Intimate Partner Violence: Not At Risk (07/09/2023) Humiliation, Afraid, Rape, and Kick questionnaire Fear of Current or Ex-Partner: No Emotionally Abused: No Physically Abused: No Sexually Abused: No Housing Stability: Low Risk (07/09/2023) Housing Stability Vital Sign Unable to Pay for Housing in the Last Year: No Number of Places Lived in the Last Year: 1 Unstable Housing in the Last Year: No SCREENINGS PHYSICAL EXAM ED Triage Vitals [07/27/23 1844] Temp Heart Rate Resp BP 36.9 C (98.4 F) (!) 116 20 (!) 143/101 SpO2 Temp Source Heart Rate Source Patient Position 96 % Temporal Monitor -- BP Location FiO2 (%) -- -- Physical Exam Vitals reviewed. Constitutional: General: He is not in acute distress. Appearance: He is ill-appearing. HENT: Head: Normocephalic and atraumatic. Mouth/Throat: Pharynx: Oropharynx is clear. Eyes: Extraocular Movements: Extraocular movements intact. Conjunctiva/sclera: Conjunctivae normal. Cardiovascular: Rate and Rhythm: Regular rhythm. Tachycardia present. Pulses: Normal pulses. Heart sounds: Normal heart sounds. No murmur heard. Pulmonary: Effort: Pulmonary effort is normal. Breath sounds: Wheezing present. No rhonchi or rales. Abdominal: General: There is distension. Tenderness: There is abdominal tenderness (generalized). There is no guarding or rebound. Musculoskeletal: General: Normal range of motion. Right lower leg: No edema. Left lower leg: No edema. Skin: General: Skin is warm. Neurological: General: No focal deficit present. Mental Status: He is alert. Mental status is at baseline. Cranial Nerves: No cranial nerve deficit. Sensory: No sensory deficit. Motor: No weakness. Psychiatric: Mood and Affect: Mood normal. DIAGNOSTIC RESULTS RADIOLOGY (Per Emergency Physician): Interpretation per the Radiologist below, if available at the time of this note: CT abdomen pelvis w contrast Final Result 1. No acute findings. 2. Hepatic steatosis. 3. Sigmoid colon diverticulosis without evidence of diverticulitis. Report Dictated on Electronically Signed By: Sen Bear MD Electronically Signed Date/Time: 07/27/2023 8:52 PM EDT LABS: Labs Reviewed CBC WITH AUTO DIFFERENTIAL - Abnormal Result Value Auto WBC 6.4 RBC 4.79 Hemoglobin 16.3 Hematocrit 46.2 MCV 96.5 MCH 34.0 MCHC 35.3 RDW 13.0 Platelets 296 MPV 8.6 (*) nRBC 0.0 Neutrophils Relative 59.0 Lymphocytes Relative 27.2 Monocytes Relative 11.0 Eosinophils Relative 1.7 Basophils Relative 0.8 Immature Grans % 0.3 Neutrophils Absolute 3.8 Lymphocytes Absolute 1.7 Monocytes Absolute 0.7 Eosinophils Absolute 0.1 Basophils Absolute 0.1 Immature Grans Absolute 0.0 ETHANOL - Abnormal ETHANOL IN SER/PLAS 0.337 (*) Narrative: NOTE: This result is for medical treatment only. Analysis performed using non-forensic procedures. BASIC METABOLIC PANEL - Abnormal SODIUM 136 POTASSIUM 3.9 CHLORIDE 98 CARBON DIOXIDE 26 UREA NITROGEN 4 (*) CREATININE 0.62 (*) GLUCOSE 128 (*) CALCIUM 8.9 ANION GAP 12 eGFR >90.0 HEPATIC FUNCTION PANEL - Abnormal BILIRUBIN, TOTAL 0.6 BILIRUBIN, DIRECT 0.0 ALKALINE PHOSPHATASE 113 AST (SGOT) 102 (*) ALT 77 (*) ALBUMIN 4.5 TOTAL PROTEIN 7.6 SARS-COV-2 ANTIGEN - Normal SARS-CoV-2 Antigen Negative LIPASE - Normal LIPASE 282 DRUGS OF ABUSE AMPHETAMINE SCREEN Negative BARBITURATES SCREEN Positive BENZODIAZEPINE SCREEN Negative COCAINE METAB. SCREEN Negative METHADONE SCREEN Negative OPIATES SCREEN Negative OXYCODONE SCREEN Negative PHENCYCLIDINE SCREEN Negative Narrative: The expected value for all of the drugs listed above is Negative. The following drugs or drug groups have been screened for by Immunoassay at the following thresholds: Amphetamine class (1000 ng/mL) Barbiturates (200 ng/mL) Benzodiazepines (200 ng/mL) Cocaine (300 ng/mL) Methadone (300 ng/mL) Opiates (300 ng/mL) Oxycodone (100 ng/mL) PCP (25 ng/mL) NOTE: These results are for medical treatment only. Analysis performed using non-forensic procedures. POSITIVE results are NOT confirmed by a more specific alternative method unless requested. If confirmation is needed, request confirmation under separate order. All other labs were within normal range or not returned as of this dictation. EMERGENCY DEPARTMENT COURSE and DIFFERENTIAL DIAGNOSIS/MDM: Vitals: Vitals: 07/27/23 1844 07/27/23 2040 07/27/23 2042 BP: (!) 143/101 127/81 127/81 BP Location: Right arm Patient Position: Sitting Pulse: (!) 116 (!) 122 (!) 119 Resp: 20 20 Temp: 36.9 C (98.4 F) TempSrc: Temporal SpO2: 96% 97% Weight: 95.3 kg (210 lb) The patient presented with a chief complaint of alcohol intoxication. The differential diagnosis associated with this patient's presentation includes alcohol withdrawal versus alcohol intoxication versus liver failure versus kidney failure versus pancreatitis. Our workup consisted of ordering/reviewing labs, imaging. Labs notable for mild transaminitis, elevated ethanol of 0.337. Patient was given DuoNeb for wheezing, fluids Ativan and phenobarbital for his alcohol withdrawal. EKG and imaging as below. Patient agreeable with admission to detox. Diagnoses as of 07/27/232119 Alcohol withdrawal syndrome without complication (HCC) External records reviewed: Inpatient notes patient was admitted to detox on 07/08/2023 and discharged on 07/11/2023. Diagnostics interpreted by me: EKG(s) Sinus rhythm, normal axis, normal intervals, T wave abnormalities noted in anterior leads, no acute STEMI CT scan(s) CT abdomen pelvis without acute abnormality Discussions with other clinicians: Admitting team Dr. Mainor Daniel, detox admitting physician Chronic conditions impacting care: COPD Social determinants of health affecting care: Alcoholism ED Medications managed: Medications PHENobarbital (Luminal) tablet 97.2 mg (97.2 mg Oral Given 07/27/232047) sodium chloride 0.9 % bolus 1,000 mL (1,000 mL IntraVENous New Bag 07/27/231933) ipratropium-albuterol (Duo-Neb) 0.5-2.5 mg/3 mL nebulizer solution 3 mL (3 mL Nebulization Given 07/27/231943) iopamidol (Isovue-370) 76 % injection 75 mL (75 mL IntraVENous Given 07/27/232030) LORazepam (Ativan) injection 2 mg (2 mg IntraVENous Given 07/27/232047) Prescription drugs considered: None PROCEDURES: Unless otherwise noted below, none Procedures FINAL IMPRESSION 1. Alcohol withdrawal syndrome without complication (HCC) DISPOSITION Admit 07/27/2023 09:20:02 PM PATIENT REFERRED TO: No follow-up provider specified. DISCHARGE MEDICATIONS: Current Discharge Medication List (Comment: Please note this report has been produced using speech recognition software and may contain errors related to that system including errors in grammar, punctuation, and spelling, as well as words and phrases that may be inappropriate. If there are any questions or concerns please feel free to contact the dictating provider for clarification.) Rosalina Burgos DO (electronically signed) Emergency Medicine Provider Rosalina Burgos DO Resident 07/27/232124 Pt states he was recently at detox for ETOH. States he is sleeping a lot having abdominal pain and nausea and just wants to feel better last drink was this evening documented in this encounter [facility] 07-27-2023 Note NOTE: This result is for medical treatment only. Analysis performed using non-forensic procedures. [facility] 07-27-2023 Emergency department Triage note Pt states he was recently at detox for ETOH. States he is sleeping a lot having abdominal pain and nausea and just wants to feel better last drink was this evening [facility] 07-27-2023 Physician Emergency department Note This will serve as my Supervisory note and shared attestation. I personally saw the patient and made/approved the management plan and take responsibility for the patient management. I did perform a substantive portion of the visit including all aspects of the Medical Decision Making. All diagnostic, treatment, and disposition decisions were made by myself in conjunction with the resident. For all further details of the patient's emergency department visit, please see their documentation. [facility] ED EMERGENCY DEPARTMENT ENCOUNTER Pt Name: Maria De Jesus Hogan Birthdate 1965 Date of evaluation: 07/27/2023 Provider: Triston Abraham MD CHIEF COMPLAINT Chief Complaint Patient presents with Alcohol Intoxication HISTORY OF PRESENT ILLNESS I wore proper PPE for the entirety of this encounter. Maria De Jesus Hogan is a 57 y.o. male who presents to the emergency department with diffuse abdominal pain and distention for approximately 1 day in the setting of drinking alcohol after being discharged from detox for about a month ago. Patient says that he had the shakes before but is never had a withdrawal seizure. He denies prior abdominal surgeries. Nursing Notes were reviewed. Limitations to history: None Outside historians: Significant other REVIEW OF SYSTEMS Constitutional: as noted in HPI, and negative for fever/chills Eyes: as noted in HPI, and negative for vision changes ENT: as noted in HPI, and negative for cough CV: as noted in HPI, and negative for chest pain, negative for palpitations Resp: as noted in HPI, and negative for shortness of breath GI: as noted in HPI : as noted in HPI, and negative for urinary symptoms MSK: as noted in HPI, and negative for muscle pain Skin: as noted in HPI, and negative for rash Neuro: as noted in HPI, and negative for headaches, negative for acute focal weakness/numbness PAST MEDICAL HISTORY Past Medical History: Diagnosis Date Alcohol abuse Alcohol dependence with withdrawal (HCC) 08/31/2019 Alcohol intoxication without use disorder, uncomplicated (HCC) 10/01/2019 Alcohol use disorder 09/10/2022 Alcohol withdrawal syndrome with complication (HCC) 09/27/2021 Alcohol withdrawal, uncomplicated (HCC) 08/31/2019 Alcohol withdrawal, with unspecified complication (HCC) 10/02/2019 Alcohol withdrawal, with unspecified complication (HCC) 10/02/2019 Alcoholism (CMS/HCC) (HCC) Anxiety Arthritis Maria De Jesus Cerebral artery occlusion with cerebral infarction (HCC) Cerebrovascular disease Depression GERD (gastroesophageal reflux disease) Maria De Jesus Hypertension Insomnia SURGICAL HISTORY Past Surgical History: Procedure Laterality Date COLONOSCOPY 06/10/2020 EGD/Dr Madison/B CYST REMOVAL face EGD (HISTORICAL) 07/23/2022 Dr. Estrella-[facility] SMALL INTESTINE SURGERY UPPER GASTROINTESTINAL ENDOSCOPY 09/27/2021 normal WISDOM TOOTH EXTRACTION CURRENT MEDICATIONS Previous Medications ALBUTEROL 108 (90 BASE) MCG/ACT INHALER Inhale 2 puffs every 6 hours as needed for wheezing or shortness of breath. CALCIPOTRIENE (DOVONEX) 0.005 % CREAM Apply topically 2 times daily. GABAPENTIN (NEURONTIN) 600 MG TABLET Take 1 tablet (600 mg) by mouth 3 times daily. MELATONIN 5 MG TABLET Take 1 tablet (5 mg) by mouth Nightly. MULTIPLE VITAMINS TABLET Take 1 tablet by mouth daily. NICOTINE (NICODERM, STEP 2) 14 MG/24HR PATCH Place 1 patch on the skin daily. Do not start before October 23, 2022. PANTOPRAZOLE (PROTONIX) 40 MG EC TABLET Take 1 tablet (40 mg) by mouth every morning (before breakfast). THIAMINE MONONITRATE (VITAMIN B1) 100 MG TABLET Take 1 tablet (100 mg) by mouth daily. ALLERGIES Bee venom, Nickel, and Tramadol FAMILY HISTORY Family History Problem Relation Name Age of Onset Depression Sister Maria De Jesus Hogan Other ([id number]) Sister Maria De Jesus Hogan agoraphobia Arthritis Sister Maria De Jesus Hogan Cancer Mother Maria De Jesus Hogan colon rectal cancer; dx after age 50 Other ([id number]) Mother Maria De Jesus Hogan alcoholism Alcohol abuse Mother Maria De Jesus Hoagn Stroke Mother Maria De Jesus Hogan Other ([phone]) Father Maria De Jesus Hogan h/o rheumatic fever, cardiac arrest due to bee sting Hypertension Father Maria De Jesus Hogan SOCIAL HISTORY Social History Socioeconomic History Marital status: Tobacco Use Smoking status: Every Day Packs/day: 2 Types: Cigarettes Start date: 10/10/1985 Smokeless tobacco: Never Vaping Use Vaping Use: Never used Substance and Sexual Activity Alcohol use: Yes Comment: Detox home for a week 0 drinks 02/17/23 Drug use: No Sexual activity: Yes Partners: Female control/protection: Other Comment: live with Social Determinants of Health Financial Resource Strain: Low Risk (07/09/2023) Overall Financial Resource Strain (CARDIA) Difficulty of Paying Living Expenses: Not very hard Food Insecurity: No Food Insecurity (07/09/2023) Hunger Vital Sign Worried About Running Out of Food in the Last Year: Never true Ran Out of Food in the Last Year: Never true Transportation Needs: No Transportation Needs (07/09/2023) PRAPARE - Transportation Lack of Transportation (Medical): No Lack of Transportation (Non-Medical): No Physical Activity: Inactive (07/09/2023) Exercise Vital Sign Days of Exercise per Week: 0 days Minutes of Exercise per Session: 0 min Stress: Stress Concern Present (07/09/2023) [place] [employer] - Occupational Stress Questionnaire Feeling of Stress : Very much Social Connections: Moderately Isolated (07/09/2023) Social Connection and Isolation Panel [NHANES] Frequency of Communication with Friends and Family: More than three times a week Frequency of Social Gatherings with Friends and Family: More than three times a week Attends Synagogue Services: Never Active Member of Clubs or Organizations: No Attends Club or Organization Meetings: Never Marital Status: Intimate Partner Violence: Not At Risk (07/09/2023) Humiliation, Afraid, Rape, and Kick questionnaire Fear of Current or Ex-Partner: No Emotionally Abused: No Physically Abused: No Sexually Abused: No Housing Stability: Low Risk (07/09/2023) Housing Stability Vital Sign Unable to Pay for Housing in the Last Year: No Number of Places Lived in the Last Year: 1 Unstable Housing in the Last Year: No SCREENINGS PHYSICAL EXAM ED Triage Vitals [07/27/23 1844] Temp Heart Rate Resp BP 36.9 C (98.4 F) (!) 116 20 (!) 143/101 SpO2 Temp Source Heart Rate Source Patient Position 96 % Temporal Monitor -- BP Location FiO2 (%) -- -- Constitutional: No acute distress HEENT:Head: Atraumatic/normocephalic Eyes: Conjunctivae normal. ENT: Mucous membranes moist. CV: RRR RESP: CTAB, good respiratory effort, no increased wob GI: Abdomen soft, non-tender, mildly distended, +BS, no guarding or rebound tenderness MSK: Normal bulk and tone, no gross deformity EXTR: Warm and well perfused, no edema SKIN: No rash/bruising/erythema PSYCH: Appropriate affect, cooperative behavior NEURO: Alert and oriented x 3, face symmetric, no slurred speech DIAGNOSTIC RESULTS Procedures/EKG: EKG was reviewed by myself. Physician [facility] RADIOLOGY (Per Emergency Physician): Interpretation per the Radiologist below, if available at the time of this note: CT abdomen pelvis w contrast (Results Pending) LABS: Labs Reviewed SARS-COV-2 ANTIGEN CBC WITH AUTO DIFFERENTIAL DRUGS OF ABUSE ETHANOL LIPASE BASIC METABOLIC PANEL HEPATIC FUNCTION PANEL EMERGENCY DEPARTMENT COURSE and DIFFERENTIAL DIAGNOSIS/MDM: Vitals: Vitals: 07/27/234 BP: (!) 143/101 Pulse: (!) 116 Resp: 20 Temp: 36.9 C (98.4 F) TempSrc: Temporal SpO2: 96% Weight: 95.3 kg (210 lb) Medications PHENobarbital (Luminal) tablet 97.2 mg (has no administration in time range) sodium chloride 0.9 % bolus 1,000 mL (has no administration in time range) I personally saw the patient and performed a substantive portion of the visit including all aspects of the medical decision making. Patient appears nontoxic. Tachycardic and mildly hypertensive. This could be secondary to dehydration and/or withdrawal. I ordered 1 L of IV fluids for dehydration and phenobarbital p.o. for mild withdrawal. Subsequently given Ativan 2 mg IV for withdrawal. Ethanol level is still quite elevated. Workup for abdominal pain is reassuring against an acute surgical abdominal emergency. Pt admitted to detox. Diagnoses as of 07/27/232225 Alcohol withdrawal syndrome without complication (HCC) External records reviewed: Inpatient notes-addiction medicine discharge summary. Addiction medicine consult note from May 21 Diagnostics interpreted by me: As above Discussions with other clinicians: As above Chronic conditions impacting care: Alcohol use disorder ED Medications managed: Medications PHENobarbital (Luminal) tablet 97.2 mg (has no administration in time range) sodium chloride 0.9 % bolus 1,000 mL (has no administration in time range) CRITICAL CARE TIME I personally saw the patient and independently provided 0 minutes of non-concurrent critical care out of the total shared critical care time provided. PROCEDURES: Unless otherwise noted below, none Procedures Patients symptoms are consistent with sepsis, severe sepsis, or septic shock (If yes use .sepsiscoremeasure): no FINAL IMPRESSION No diagnosis found. DISPOSITION/PLAN PATIENT REFERRED TO: No follow-up provider specified. DISCHARGE MEDICATIONS: New Prescriptions No medications on file (Please note: Portions of this note were completed with a voice recognition program. Efforts were made to edit the dictations but occasionally words and phrases are mis-transcribed.) Triston Abraham MD PATRICIA Emergency Medicine Physician [facility] Triston Abraham MD 07/27/232225 [facility] 07-27-[facility]23 Physician Emergency department Note EMERGENCY DEPARTMENT ENCOUNTER Pt Name: Maria De Jesus Hogan Birthdate 1965 Date of evaluation: 07/27/2023 ED Provider: Rosalina Burgos DO CHIEF COMPLAINT Chief Complaint Patient presents with Alcohol Intoxication HISTORY OF PRESENT ILLNESS (Location/Symptom, Timing/Onset, Context/Setting, Quality, Duration, Modifying Factors, Severity) Note limiting factors. I wore appropriate PPE for the entirety of this encounter. HPI Maria De Jesus Hogan is a 57 y.o. who presents to the emergency department seeking detox from alcohol. Describes a feeling as though his organs are shutting down. Does have some generalized abdominal bloating/pain as well as nausea. Says he drinks about 4-5 tall boy beers in a day. No recreational drug use. Says that he was discharged from inpatient detox about a month ago. Nursing Notes were reviewed. Limitations to history: None Outside historians: Significant other REVIEW OF SYSTEMS Review of Systems Pertinent positives and negatives as per HPI. PAST MEDICAL HISTORY Past Medical History: Diagnosis Date Alcohol abuse Alcohol dependence with withdrawal (HCC) 08/31/2019 Alcohol intoxication without use disorder, uncomplicated (HCC) 10/01/2019 Alcohol use disorder 09/10/2022 Alcohol withdrawal syndrome with complication (HCC) 09/27/2021 Alcohol withdrawal, uncomplicated (HCC) 08/31/2019 Alcohol withdrawal, with unspecified complication (HCC) 10/02/2019 Alcohol withdrawal, with unspecified complication (HCC) 10/02/2019 Alcoholism (CMS/HCC) (HCC) Anxiety Arthritis Maria De Jesus Cerebral artery occlusion with cerebral infarction (HCC) Cerebrovascular disease Depression GERD (gastroesophageal reflux disease) Maria De Jesus Hypertension Insomnia SURGICAL HISTORY Past Surgical History: Procedure Laterality Date COLONOSCOPY 06/10/2020 EGD/Dr Madison/B CYST REMOVAL face EGD (HISTORICAL) 07/23/2022 Dr. Estrella-[facility] SMALL INTESTINE SURGERY UPPER GASTROINTESTINAL ENDOSCOPY 09/27/2021 normal WISDOM TOOTH EXTRACTION CURRENT MEDICATIONS Current Discharge Medication List CONTINUE these medications which have NOT CHANGED Details albuterol 108 (90 Base) MCG/ACT inhaler Inhale 2 puffs every 6 hours as needed for wheezing or shortness of breath. Qty: 18 g, Refills: 3 calcipotriene (Dovonex) 0.005 % cream Apply topically 2 times daily. Qty: 60 g, Refills: 3 Associated Diagnoses: Psoriasiform seborrheic dermatitis gabapentin (Neurontin) 600 MG tablet Take 1 tablet (600 mg) by mouth 3 times daily. Qty: 90 tablet, Refills: 0 Associated Diagnoses: Chronic left shoulder pain melatonin 5 MG tablet Take 1 tablet (5 mg) by mouth Nightly. Qty: 90 tablet, Refills: 1 Multiple Vitamins tablet Take 1 tablet by mouth daily. Qty: 90 tablet, Refills: 1 nicotine (Nicoderm, Step 2) 14 MG/24HR patch Place 1 patch on the skin daily. Do not start before October 23, 2022. Qty: 30 patch, Refills: 0 pantoprazole (ProtoNix) 40 MG EC tablet Take 1 tablet (40 mg) by mouth every morning (before breakfast). Qty: 90 tablet, Refills: 0 Associated Diagnoses: Elevated liver enzymes Thiamine Mononitrate (Vitamin B1) 100 MG tablet Take 1 tablet (100 mg) by mouth daily. Qty: 90 tablet, Refills: 1 ALLERGIES Bee venom, Nickel, and Tramadol FAMILY HISTORY Family History Problem Relation Name Age of Onset Depression Sister Maria De Jesus Hogan Other ([id number]) Sister Maria De Jesus Hogan agoraphobia Arthritis Sister Maria De Jesus Hogan Cancer Mother Maria De Jesus Hogan colon rectal cancer; dx after age 50 Other ([id number]) Mother Maria De Jesus Hogan alcoholism Alcohol abuse Mother Maria De Jesus Hogan Stroke Mother Maria De Jesus Hogan Other ([phone]) Father Maria De Jesus Hogan h/o rheumatic fever, cardiac arrest due to bee sting Hypertension Father Maria De Jesus Hogan SOCIAL HISTORY Social History Socioeconomic History Marital status: Tobacco Use Smoking status: Every Day Packs/day: 2 Types: Cigarettes Start date: 10/10/1985 Smokeless tobacco: Never Vaping Use Vaping Use: Never used Substance and Sexual Activity Alcohol use: Yes Comment: Detox home for a week 0 drinks 02/17/23 Drug use: No Sexual activity: Yes Partners: Female control/protection: Other Comment: live with Social Determinants of Health Financial Resource Strain: Low Risk (07/09/2023) Overall Financial Resource Strain (CARDIA) Difficulty of Paying Living Expenses: Not very hard Food Insecurity: No Food Insecurity (07/09/2023) Hunger Vital Sign Worried About Running Out of Food in the Last Year: Never true Ran Out of Food in the Last Year: Never true Transportation Needs: No Transportation Needs (07/09/2023) PRAPARE - Transportation Lack of Transportation (Medical): No Lack of Transportation (Non-Medical): No Physical Activity: Inactive (07/09/2023) Exercise Vital Sign Days of Exercise per Week: 0 days Minutes of Exercise per Session: 0 min Stress: Stress Concern Present (07/09/2023) [place] [employer] - Occupational Stress Questionnaire Feeling of Stress : Very much Social Connections: Moderately Isolated (07/09/2023) Social Connection and Isolation Panel [NHANES] Frequency of Communication with Friends and Family: More than three times a week Frequency of Social Gatherings with Friends and Family: More than three times a week Attends Synagogue Services: Never Active Member of Clubs or Organizations: No Attends Club or Organization Meetings: Never Marital Status: Intimate Partner Violence: Not At Risk (07/09/2023) Humiliation, Afraid, Rape, and Kick questionnaire Fear of Current or Ex-Partner: No Emotionally Abused: No Physically Abused: No Sexually Abused: No Housing Stability: Low Risk (07/09/2023) Housing Stability Vital Sign Unable to Pay for Housing in the Last Year: No Number of Places Lived in the Last Year: 1 Unstable Housing in the Last Year: No SCREENINGS PHYSICAL EXAM ED Triage Vitals [07/27/23 1844] Temp Heart Rate Resp BP 36.9 C (98.4 F) (!) 116 20 (!) 143/101 SpO2 Temp Source Heart Rate Source Patient Position 96 % Temporal Monitor -- BP Location FiO2 (%) -- -- Physical Exam Vitals reviewed. Constitutional: General: He is not in acute distress. Appearance: He is ill-appearing. HENT: Head: Normocephalic and atraumatic. Mouth/Throat: Pharynx: Oropharynx is clear. Eyes: Extraocular Movements: Extraocular movements intact. Conjunctiva/sclera: Conjunctivae normal. Cardiovascular: Rate and Rhythm: Regular rhythm. Tachycardia present. Pulses: Normal pulses. Heart sounds: Normal heart sounds. No murmur heard. Pulmonary: Effort: Pulmonary effort is normal. Breath sounds: Wheezing present. No rhonchi or rales. Abdominal: General: There is distension. Tenderness: There is abdominal tenderness (generalized). There is no guarding or rebound. Musculoskeletal: General: Normal range of motion. Right lower leg: No edema. Left lower leg: No edema. Skin: General: Skin is warm. Neurological: General: No focal deficit present. Mental Status: He is alert. Mental status is at baseline. Cranial Nerves: No cranial nerve deficit. Sensory: No sensory deficit. Motor: No weakness. Psychiatric: Mood and Affect: Mood normal. DIAGNOSTIC RESULTS RADIOLOGY (Per Emergency Physician): Interpretation per the Radiologist below, if available at the time of this note: CT abdomen pelvis w contrast Final Result 1. No acute findings. 2. Hepatic steatosis. 3. Sigmoid colon diverticulosis without evidence of diverticulitis. Report Dictated on Electronically Signed By: Sen Bear MD Electronically Signed Date/Time: 07/27/2023 8:52 PM EDT LABS: Labs Reviewed CBC WITH AUTO DIFFERENTIAL - Abnormal Result Value Auto WBC 6.4 RBC 4.79 Hemoglobin 16.3 Hematocrit 46.2 MCV 96.5 MCH 34.0 MCHC 35.3 RDW 13.0 Platelets 296 MPV 8.6 (*) nRBC 0.0 Neutrophils Relative 59.0 Lymphocytes Relative 27.2 Monocytes Relative 11.0 Eosinophils Relative 1.7 Basophils Relative 0.8 Immature Grans % 0.3 Neutrophils Absolute 3.8 Lymphocytes Absolute 1.7 Monocytes Absolute 0.7 Eosinophils Absolute 0.1 Basophils Absolute 0.1 Immature Grans Absolute 0.0 ETHANOL - Abnormal ETHANOL IN SER/PLAS 0.337 (*) Narrative: NOTE: This result is for medical treatment only. Analysis performed using non-forensic procedures. BASIC METABOLIC PANEL - Abnormal SODIUM 136 POTASSIUM 3.9 CHLORIDE 98 CARBON DIOXIDE 26 UREA NITROGEN 4 (*) CREATININE 0.62 (*) GLUCOSE 128 (*) CALCIUM 8.9 ANION GAP 12 eGFR >90.0 HEPATIC FUNCTION PANEL - Abnormal BILIRUBIN, TOTAL 0.6 BILIRUBIN, DIRECT 0.0 ALKALINE PHOSPHATASE 113 AST (SGOT) 102 (*) ALT 77 (*) ALBUMIN 4.5 TOTAL PROTEIN 7.6 SARS-COV-2 ANTIGEN - Normal SARS-CoV-2 Antigen Negative LIPASE - Normal LIPASE 282 DRUGS OF ABUSE AMPHETAMINE SCREEN Negative BARBITURATES SCREEN Positive BENZODIAZEPINE SCREEN Negative COCAINE METAB. SCREEN Negative METHADONE SCREEN Negative OPIATES SCREEN Negative OXYCODONE SCREEN Negative PHENCYCLIDINE SCREEN Negative Narrative: The expected value for all of the drugs listed above is Negative. The following drugs or drug groups have been screened for by Immunoassay at the following thresholds: Amphetamine class (1000 ng/mL) Barbiturates (200 ng/mL) Benzodiazepines (200 ng/mL) Cocaine (300 ng/mL) Methadone (300 ng/mL) Opiates (300 ng/mL) Oxycodone (100 ng/mL) PCP (25 ng/mL) NOTE: These results are for medical treatment only. Analysis performed using non-forensic procedures. POSITIVE results are NOT confirmed by a more specific alternative method unless requested. If confirmation is needed, request confirmation under separate order. All other labs were within normal range or not returned as of this dictation. EMERGENCY DEPARTMENT COURSE and DIFFERENTIAL DIAGNOSIS/MDM: Vitals: Vitals: 07/27/23 1844 [id number]/232041 BP: (!) 143/101 127/81 127/81 BP Location: Right arm Patient Position: Sitting Pulse: (!) 116 (!) 122 (!) 119 Resp: 20 20 Temp: 36.9 C (98.4 F) TempSrc: Temporal SpO2: 96% 97% Weight: 95.3 kg (210 lb) The patient presented with a chief complaint of alcohol intoxication. The differential diagnosis associated with this patient's presentation includes alcohol withdrawal versus alcohol intoxication versus liver failure versus kidney failure versus pancreatitis. Our workup consisted of ordering/reviewing labs, imaging. Labs notable for mild transaminitis, elevated ethanol of 0.337. Patient was given DuoNeb for wheezing, fluids Ativan and phenobarbital for his alcohol withdrawal. EKG and imaging as below. Patient agreeable with admission to detox. Diagnoses as of 07/27/232119 Alcohol withdrawal syndrome without complication (HCC) External records reviewed: Inpatient notes patient was admitted to detox on 07/08/2023 and discharged on 07/11/2023. Diagnostics interpreted by me: EKG(s) Sinus rhythm, normal axis, normal intervals, T wave abnormalities noted in anterior leads, no acute STEMI CT scan(s) CT abdomen pelvis without acute abnormality Discussions with other clinicians: Admitting team Dr. Mainor Daniel, detox admitting physician Chronic conditions impacting care: COPD Social determinants of health affecting care: Alcoholism ED Medications managed: Medications PHENobarbital (Luminal) tablet 97.2 mg (97.2 mg Oral Given 07/27/232047) sodium chloride 0.9 % bolus 1,000 mL (1,000 mL IntraVENous New Bag 07/27/231933) ipratropium-albuterol (Duo-Neb) 0.5-2.5 mg/3 mL nebulizer solution 3 mL (3 mL Nebulization Given 07/27/231943) iopamidol (Isovue-370) 76 % injection 75 mL (75 mL IntraVENous Given 07/27/232030) LORazepam (Ativan) injection 2 mg (2 mg IntraVENous Given 07/27/232047) Prescription drugs considered: None PROCEDURES: Unless otherwise noted below, none Procedures FINAL IMPRESSION 1. Alcohol withdrawal syndrome without complication (HCC) DISPOSITION Admit 07/27/2023 09:20:02 PM PATIENT REFERRED TO: No follow-up provider specified. DISCHARGE MEDICATIONS: Current Discharge Medication List (Comment: Please note this report has been produced using speech recognition software and may contain errors related to that system including errors in grammar, punctuation, and spelling, as well as words and phrases that may be inappropriate. If there are any questions or concerns please feel free to contact the dictating provider for clarification.) Rosalina Burgos DO (electronically signed) Emergency Medicine Provider Rosalina Burgos DO Resident 07/27/232124 T [facility] 07-19-2023 Telephone encounter Note Recent Visits Date Type Provider Dept 12/26/22 Office Visit Lynda Rasheed MD [facility] 09/25/22 Office Visit Lydna Rasheed MD [facility] 08/01/22 Office Visit Lynda Rasheed MD [facility] Showing recent visits within past 365 days and meeting all other requirements Future Appointments No visits were found meeting these conditions. Showing future appointments within next 90 days and meeting all other requirements Requested Prescriptions Pending Prescriptions Disp Refills albuterol 108 (90 Base) MCG/ACT inhaler 18 g 3 Sig: Inhale 2 puffs every 6 hours as needed for wheezing or shortness of breath. gabapentin (Neurontin) 600 MG tablet 90 tablet 2 Sig: Take 1 tablet (600 mg) by mouth 3 times daily. Provider: Lynda Rasheed MD Verified pharmacy: yes Verified day(s) supplied: yes Verified refill(s) needed (previous prescription showing no refills in chart): No - unable to verify prescription refills in chart Have you received any controlled medications from any other provider? No Overdue for visit: Yes If yes - patient scheduled? No Most recent labs completed in chart? N/A [facility] 07-19-2023 Miscellaneous Notes Recent Visits Date Type Provider Dept 12/26/22 Office Visit Lynda Rasheed MD [facility] 09/25/22 Office Visit Lynda Rasheed MD [facility] 08/01/22 Office Visit Lynda Rasheed MD [facility] Showing recent visits within past 365 days and meeting all other requirements Future Appointments No visits were found meeting these conditions. Showing future appointments within next 90 days and meeting all other requirements Requested Prescriptions Pending Prescriptions Disp Refills albuterol 108 (90 Base) MCG/ACT inhaler 18 g 3 Sig: Inhale 2 puffs every 6 hours as needed for wheezing or shortness of breath. gabapentin (Neurontin) 600 MG tablet 90 tablet 2 Sig: Take 1 tablet (600 mg) by mouth 3 times daily. Provider: Lynda Rasheed MD Verified pharmacy: yes Verified day(s) supplied: yes Verified refill(s) needed (previous prescription showing no refills in chart): No - unable to verify prescription refills in chart Have you received any controlled medications from any other provider? No Overdue for visit: Yes If yes - patient scheduled? No Most recent labs completed in chart? 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 Tech escorted from the unit to 70 arch. 410 pm Reviewed discharge. Signed. Discussed AA with patient. States he most likely will not go. [facility] is planing on going to an IOP. Discussed risk of using any etoh, street drugs, meds not prescribed or as. Discussed increased risk of od or if uses soon after discharge, stated understood. Discussed how etoh shortens life and decreases quality of life. Denies si/hi. Images from the original note were not included. ADDICTION MEDICINE PROGRESS NOTE Patient: Maria De Jesus Hogan Problem List: Principal Problem: Alcohol withdrawal syndrome without complication (HCC) Active Problems: Cigarette smoker Severe alcohol use disorder (HCC) SUBJECTIVE Chief Complaint Patient presents with Detox Pt. States he would like to come in for inpatient detox. States he has been drinking 8-9 tallboys per day since he was a teen. Pt. States he has never attempted to detox before. States last drink was less that 30mins ago. Last 4 CIWA scores per RN assessments 2 - 2 - 2 - 3 Interim History Patient seen in follow-up for alcohol withdrawal. No acute events overnight. Nursing endorses patient has been mostly withdrawn to room, sleeping. Patient has been calm, cooperative, medication compliant. Notes improvement in symptoms to nursing staff. Denies SI/HI/AVH. Initial contact today patient found resting in room, in no apparent acute distress. Patient arouses easily to verbal stimuli. Patient mood is better , affect is jones. Thoughts are organized and goal-directed. Endorses improvement in wheezing and shortness of breath with DuoNeb. Patient states not on daily medication for COPD, reviewed following up with PCP upon discharge and discussing daily medication as opposed to as needed albuterol. Endorses continued fatigue, diaphoresis, diffuse myalgias, mild bilateral tremor. Patient with slight autonomic instability, heart rate and blood pressure elevated last night and this morning. Patient asks about discharge, states is going out of town and wants to be home to see her prior to leaving. Discussed treatment course and timeline with patient, patient amenable to staying till Saturday. Patient continues to endorse interest in IOP however states would like to schedule own appointment as both him and his work and he will need to look into his schedule. Discussed with patient that it was my opinion that for accountability and follow-up reasons, it would be ideal prior to discharge care team could arrange IOP follow-up. Patient maintains will follow-up, states now motivated as he feels like his body is dying from the alcohol and he cannot continue drinking. Reviewed patient's multiple admissions both for detox and medical (GI bleed and hematemesis), and the importance of having his wishes and affairs in order if he were to become unable to make own medical decisions. Patient at this time does not have healthcare power of deputy county attorney, living will, or documentation expressing his end-of-life wishes. Reviewed importance of this with patient and discussed options for following up once discharged to get these affairs in order. Patient voiced understanding. Review of Systems Review of Systems Constitutional: Positive for diaphoresis and fatigue. Eyes: Negative for visual disturbance. Respiratory: Negative for cough, chest tightness and shortness of breath. Cardiovascular: Negative for chest pain. Gastrointestinal: . Negative for blood in stool, diarrhea and vomiting, nausea Musculoskeletal: Positive for myalgias. Neurological: Positive for tremors Negative for light-headedness. Psychiatric/Behavioral: Negative for agitation and confusion. OBJECTIVE Vitals Vitals: 07/10/23 0717 07/10/23 1101 07/10/23 1158 07/10/23 1223 BP: 125/83 BP Location: Patient Position: Pulse: 110 103 98 Resp: 18 20 18 Temp: (!) 35.9 C (96.7 F) 36.9 C (98.4 F) TempSrc: Temporal SpO2: 94% 92% 94% Weight: Height: Physical Exam Constitutional: General: He is not in acute distress. Appearance: He is not toxic-appearing or diaphoretic. HENT: Head: Atraumatic. Mouth/Throat: Mouth: Mucous membranes are Moist. Eyes: Conjunctiva/sclera: Conjunctivae normal. Pupils: Pupils are equal, round, and reactive to light. Comments: Cardiovascular: Rate and Rhythm: Regular rhythm. Tachycardia present. Pulses: Normal pulses. Heart sounds: Normal heart sounds. Pulmonary: Effort: Pulmonary effort is normal. Breath sounds: LCTAB present, mild decrease at bases Abdominal: Palpations: Abdomen is soft. Tenderness: There is no abdominal tenderness. There is no guarding or rebound. Skin: General: Skin is warm. Capillary Refill: Capillary refill takes less than 2 seconds. Neurological: General: No focal deficit present. Mental Status: He is alert and oriented to person, place, and time. Comments: Mild tongue fasciculations, DTRs intact within normal limits. Slight bilateral tremor. Medications Home Meds Current Outpatient Medications Medication Instructions albuterol 108 (90 Base) MCG/ACT inhaler 2 puffs, Inhalation, Every 6 hours PRN calcipotriene (Dovonex) 0.005 % cream Topical, 2 times daily gabapentin (NEURONTIN) 600 mg, Oral, 3 times daily melatonin 5 mg, Oral, Nightly Multiple Vitamins tablet 1 tablet, Oral, Daily nicotine (Nicoderm, Step 2) 14 MG/24HR patch 1 patch, TransDERmal, Daily pantoprazole (PROTONIX) 40 mg, Oral, Daily before breakfast Thiamine Mononitrate (VITAMIN B1) 100 mg, Oral, Daily Scheduled Inpatient Meds folic acid, 1 mg, Oral, Daily gabapentin, 600 mg, Oral, TID ipratropium-albuterol, 3 mL, Nebulization, TID melatonin, 5 mg, Oral, Nightly pantoprazole, 40 mg, Oral, qAM AC PHENobarbital, 97.2 mg, Oral, Q4H thiamine, 100 mg, Oral, Daily PRN Inpatient Meds PRN medications: albuterol, aluminum & magnesium hydroxide-simethicone, hydrOXYzine pamoate, ibuprofen, nicotine polacrilex, ondansetron ODT, traZODone Continuous Inpatient Infusions Recent Imaging ECG 12 lead Result Date: 07/08/2023 Sinus tachycardia Probable left atrial enlargement No previous ECG available for comparison Electronically Signed On 07-08-2023 18:36:57 EDT by Catalino Mujica Labs CBC: Recent Labs 07/08/23 1810 WBC 5.9 HGB 16.1 PLT 240 MCV 96.2 RDW 13.7 BMP: Recent Labs 07/08/23 1810 NA 134* K 4.5 CL 94* CO2 26 BUN 4* CREATININE 0.69 CALCIUM 9.0 Liver Profile: Recent Labs 07/08/23 1810 AST 79* ALT 52* BILITOT 0.9 ALKPHOS 113 PROT 8.0 Glucose: Recent Labs 07/08/23 1810 GLUCOSE 125* Lactic Acid: No lab exists for component: LACTA Cardiac Injury Profile: No results for input(s): CKTOTAL, CKMB, TROPONINI in the last 72 hours. Last 24 Hours: No results found for this or any previous visit (from the past 24 hour(s)). ASSESSMENT & PLAN Alcohol use disorder: Severe Counseled patient on biopsychosocial consequences of substance use. Encouraged professional chemical dependency treatment. Encouraged 12 step meeting attendance. Follow up plans for addiction management discussed with patient: Patient interested in IOP, patient currently declining social work coordinating appointments, patient would like to schedule appointment on her own after discharge. Will include information for [facility] and [facility]. Patient states willing to stay till Saturday upon which time he wants to DC in order to see before she leaves town Alcohol withdrawal Last use of alcohol was on 07/07 Phenobarbital taper to manage alcohol withdrawal symptoms. 97.2 mg q 4 hours for today. Hold for excess sedation 2 mg Diazepam once today for autonomic instability CIWA scores per unit protocol. PRN medications for withdrawal symptom management added. Encouraged to participate in all unit activities. Thiamine Folic acid Gabapentin 600 mg 3 times daily Pantoprazole 40 mg daily Multivitamin COPD Patient with history of COPD, although patient with bilateral wheezing, no reported increase in dyspnea or cough, no increasing sputum, no purulent sputum. Will order DuoNeb 3 times daily for yesterday and today, reassess need tomorrow. Pt wheezing improved today with Duoneb Pt not on daily COPD medication, discussed following up with PCP upon DC Disposition: Discharge anticipated in 2-3 days. This is pending: Resolution of withdrawal symptoms. Medical stabilization. Labs/tests/tasks to review: Duoneb . S/s withdraw Consultants to coordinate care with: SW. Associated attestation - Jonatan Mckeon MD - 07/10/2023 2:41 PM EDT I saw and evaluated the patient, participating in the laboy portions of the service. We reviewed the patient's medical record and test results. I personally spent over half of a total 35 minutes in counseling and discussion with the patient and coordination of care. This included a face to face evaluation and physical examination, and documenting clinical information on the day of visit. I have reviewed the resident's note. I agree with the resident s findings and plan. Nutrition rescreen completed. Patient assigned a level 1. Mostly withdrawn and sleeping in room. Up on unit some this afternoon. Gait is steady. Cooperative with staff and medication pass. Appetite good. States feeling better at this time. Pt arrived on unit at 0120 HRS via ED , accompanied by Protective Services and Ambulance staff. Safety Checks initiated every 60 mins. Vital signs obtained. Pt oriented to room and unit and given info folder. Pt signed in including LAQUITA for the . A 4 eye skin check completed and there were no wounds present. Presentation: Pt pleasant while interacting with staff. Calm and cooperative. HPI: As per the ER, presents to the emergency department requesting detox from alcohol. Patient states that he drinks 6-8 tall boys per day, and he has been drinking heavily since the time he was a teenager. States that he has had several admissions for alcohol detox in the past but has not been able to stay sober. Patient states his last drink was within 1 hour of arrival to the emergency department Psych Hx: Depressive Disorder NOS ; Anxiety: Alcohol use disorder. Home Meds: Reviewed with the pt PMH: Patient's allergies, medications, past medical, surgical, family and social histories were reviewed and updated as appropriate. Trauma Hx: denies Substance Use: denies; Says he just vapes ETOH Use: Yes. Patient states that he drinks 6-8 tall boys per day Appetite: normal Sleep: 8+ hrs good sleep quality Anxiety: moderate; difficulty concentrating, fatigue, shortness of breath, sweating Depression: mild; change in sleep, trouble concentrating SI/SIB: denied by patient HI/Thoughts to harm others: denies; Low Risk - Risk factors include: No significant risk factors identified on screening. Protective factors include: Lack of known history of harm to others , Lack of known history of violent ideation , Sense of optimism, hope , Interpersonal competence , Affect regulation , Sense of self-efficacy, internal locus of control , and Positive, pro-social family/peer network Hallucinations: no; Delusions: None Vitals Vitals Value Taken Time BP 131/78 07/09/23129 Temp 36.6 C (97.8 F) 07/09/23129 Pulse 137 07/09/23129 Resp 16 07/09/23129 SpO2 91 % 04/09/24 0130 Pt offered meals as requested. Physician contacted for orders. Pt encouraged to seek out staff with questions or concerns. documented in this encounter [facility] 07-11-2023 Group counseling note Department: [facility] Group Topic: Music Therapy Group Date: 07/11/2023 Start Time: 1500 End Time: 1530 Facilitators: Soco Edmonds Number of Participants: 6 Group Name: Music [facility] Treatment Modality: Music Therapy Purpose: relapse prevention strategies Summary: Patient was given the task of guessing the song title and artist. The activity uses well known music to alleviate patient's hospital related anxiety by: helping direct patients' focus on identifying titles and artists of songs, improving patient's mood, affect, and group participation. Participation in the group will decrease patient's feeling of isolation and discussion will follow about using focused music listening as a mindfulness technique. Name: Maria De Jesus Hogan Date of : 1965 MR: [id number] Mental Status Exam: Appearance: Appropriately dressed and groomed Mood: Euthymic Affect: Full Behavior: Pleasant and Cooperative Alertness: Alert Speech: Appropriate Cognition: Intact Thought Process: Goal-directed Thought Content: No evidence of psychosis/delusions Level/Quality of Participation: active Interactions with others: asked thoughtful questions and offered helpful suggestions Interventions utilized were music therapy Patient's Response to Intervention: Patient participated appropriately choosing a song and sharing with the group. Pt affect was bright and eye contact was good. Pt provided verbal support to peers and participated in group singing. 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 Atelectasis Hyponatremia Pneumatosis coli UGIB (upper gastrointestinal bleed) Hypochloremia Transaminitis Hematemesis with nausea Alcohol withdrawal syndrome without complication (HCC) Weakness of extremity Conversion reaction BPH (benign prostatic hyperplasia) Tachycardia [facility] 07-11-2023 Miscellaneous Notes Department: [facility] Group Topic: Music Therapy Group Date: 07/11/2023 Start Time: 1500 End Time: 1530 Facilitators: Soco Edmonds Number of Participants: 6 Group Name: Winsome Fernandes Treatment Modality: Music Therapy Purpose: relapse prevention strategies Summary: Patient was given the task of guessing the song title and artist. The activity uses well known music to alleviate patient's hospital related anxiety by: helping direct patients' focus on identifying titles and artists of songs, improving patient's mood, affect, and group participation. Participation in the group will decrease patient's feeling of isolation and discussion will follow about using focused music listening as a mindfulness technique. Name: Maria De Jesus Hogan Date of : 1965 MR: [id number] Mental Status Exam: Appearance: Appropriately dressed and groomed Mood: Euthymic Affect: Full Behavior: Pleasant and Cooperative Alertness: Alert Speech: Appropriate Cognition: Intact Thought Process: Goal-directed Thought Content: No evidence of psychosis/delusions Level/Quality of Participation: active Interactions with others: asked thoughtful questions and offered helpful suggestions Interventions utilized were music therapy Patient's Response to Intervention: Patient participated appropriately choosing a song and sharing with the group. Pt affect was bright and eye contact was good. Pt provided verbal support to peers and participated in group singing. 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 Patient declined to allow UNIVERSITY ARCHIVIST to assist with scheduling aftercare appointments. UNIVERSITY ARCHIVIST included information for agencies in patient's local community for him to call and schedule engagement with. Patient denied current SI/HI/AVH. Patient reported that their would be picking them up from the hospital and taking them back home. Patient denied needing anything further from UNIVERSITY ARCHIVIST at the time. UNIVERSITY ARCHIVIST informed patient's nurse about conversation. CAR SPOTTER met with patient again to inquire about aftercare plans. Patient reports that he is interested in reengaging with an agency for [facility] in the [facility]. UNIVERSITY ARCHIVIST offered to identify aftercare agencies for patient and schedule intake appointment however patient is declining reporting that he would like to schedule his own aftercare appointments. UNIVERSITY ARCHIVIST included information for [facility] and [facility]. UNIVERSITY ARCHIVIST will continue to follow-up as necessary. Patient encouraged to seek out UNIVERSITY ARCHIVIST should he identify any additional care plans. Behavioral Health Psycho-Social Assessment (Social Work) Date: 07/09/2023 Patient Name: Maria De Jesus Hogan : 1965 Identifying Information: Patient is a 57-year-old male admitted to for detox and alcohol. Patient is well-known to addiction medicine team as he was previously seen in 02/08/2023 ON DETOX. Patient was seen on 05/20/2023 in a medical bed and consult services were used. Previous that patient was seen in January 2021 Where patient left [place]. Presenting Problem: Patient presented to the ED on 07/08/2019 for requesting detox and alcohol. Patient reports that he drinks 6-8 tall boys daily and has been drinking heavily since he was a teenager. States that he several admissions for detox not been able to stay sober. Patient reports last use was 1 hour prior to arrival in the ED. Psychiatric History: Patient has mental health diagnosis depression anxiety. Patient denies being on any medication for mental health needs. Patient has previous engagement with outpatient mental health providers but denies any current treatment. He has previous history of engagement with [employer] [facility] in [place] for outpatient mental health treatment. Patient has history of psychiatric admission. Reports admission was due to suicidal ideation while intoxicated Denies history of recent or past suicide attempts. Patient denies current SI/HI/AVH. Patient does have an extensive history of passive SI secondary to intoxication. Patient denies plan, intent, or method but reports more increased feelings of depression and sadness. Patient denies recent or past history of SIB. Substance Abuse/Use: Patient reports that he is currently drinking upwards of 9, 24 ounce Natty Daddy beers daily. Patient reports his last drink was 07/08/2023. Patient labs are positive for alcohol (0.358). Patient first drank alcohol when he was [age] years old. Patient reports that his use was regular in his 20s, and problematic 12 years ago. He cannot identify a trigger to his problematic use, other than, I like beer . He drinks the point of intoxication, blackouts, and vomiting. He denies history of withdrawal seizure, alcohol overdoses, or DTs. Patient does have extensive history of falls while intoxicated. Patient reports previous history of engagement with AA as well as IOP. Patient denies any history of MAT engagement. Patient reports his longest period of sobriety was 6 months. Patient reports however after leaving the unit during his previous admission he relapsed almost immediately. Patient has previous history of detox occurring on 02/08/2023, 05/20/2023 (medical), 10/25/2021, 02/15/2021 (left AMA), 06/09/20, 10/01/19, 08/31/19 (left AMA), 2016 (left AMA), and 2014 (left AMA). He denies history of residential treatment Medical/Self-care Issues: Patient has medical issues such as COPD, Lombardo's esophagus, macrocytosis, and HTN. Patient has ongoing struggles with self-care secondary to substance use disorder. Patient is increased in both frequency and tolerance over time. Patient also report struggling to recover from the effects of his substance use. Patient reports experiencing poor nutrition and sleep secondary to his substance use. Legal/Trauma/ History: Patient denies any current legal issues. Patient reports past legal history of child support violations. Patient denies any history of childhood abuse. Patient does report however his father when he was 11 years old which was a traumatic incident to him. Patient denies any history of trauma abuse as an adult. Patient denies any history [place] or status. Family Constellation/Childhood History: Patient reports that he is currently to his living in [facility]. Patient reports that he has 3 biological children and 4 stepchildren. Patient reports that his father in his 11 years old. Patient did not report his mother is still alive currently. Patient was born and raised in [place], [place] by his mother and father. He reports that his father when he was 11 years old, and this was traumatic for him. Patient reports that he was raised primarily by his mother for the remainder of his childhood. He denies childhood abuse. Education/Work: Patient reports that he graduated high school. 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 Patient denies SSI/SSD. Cultural/Spirituality/Leisure: Patient denies any cultural needs or concerns at the current time. Patient denies identify any yarsanism preference. It is unknown if patient is attending services anywhere currently. Patient reports he used to enjoy leisure activities such as golfing but has been unable to do so due to his ongoing substance use disorder. Support Systems/Collateral Information: Patient reports that his is his primary social. Patient reports that she is sober and supportive of his recovery needs and efforts. Patient reports that his is aware that he is admitted to the hospital. C-SSRS Actual Attempt (Past 3 Months): No (Patient has history of psychiatric admission. Reports admission was due to suicidal ideation while intoxicated. Patient denies any recent history of suicide attempts) Actual Attempt (Lifetime): No (Patient denies any past history of suicide attempts) Interrupted Attempts (Past 3 Months): No (Patient denies) Interrupted Attempts (Lifetime): No (Patient denies) Aborted or Self-Interrupted Attempt (Past 3 Months): No (Patient denies) Aborted or Self-Interrupted Attempt (Lifetime): No (Patient denies) Preparatory Acts or Behavior (Past 3 Months): No (Patient denies) Preparatory Acts or Behavior (Lifetime): No (Patient denies) Has subject engaged in non-suicidal self-injurious behavior? (Past 3 Months): No (Patient denies any recent history of SIB) Has subject engaged in non-suicidal self-injurious behavior? (Lifetime): No (Patient denies any past history of SIB) Suicidal Ideation: (Patient denies current SI/HI/AVH. Patient does have an extensive history of passive SI secondary to intoxication. Patient denies plan, intent, or method but reports more increased feelings of depression and sadness) Activating Events (Recent): Recent loss(es) or other significant negative event(s) (legal, financial, relationship, etc.) Describe:: Ongoing struggles with substance use disorder Treatment History: Previous psychiatric diagnoses and treatments, Non-compliant with treatment, Not receiving treatment (Patient has mental health diagnosis depression anxiety. Patient denies being on any medication for mental health needs. Patient has previous engagement with outpatient mental health providers but denies any current treatment.) Clinical Status (Recent): Hopelessness, Major depressive episode, Highly impulsive behavior, Substance abuse or dependence, Agitation or severe anxiety, Perceived burden on family or others (Risk factors) Protective Factors (Recent): Identifies reasons for living, Responsibility to family or others and/or living with family, Supportive social network or family (Protective factors) Describe any suicidal, self-injurious or aggressive behavior (include dates): Patient has history of psychiatric admission. Reports admission was due to suicidal ideation while intoxicated. Denies history of recent or past suicide attempts. Patient denies current SI/HI/AVH. Patient does have an extensive history of passive SI secondary to intoxication. Patient denies plan, intent, or method but reports more increased feelings of depression and sadness. Patient denies recent or past history of SIB. Patient has mental health diagnosis depression anxiety. Patient denies being on any medication for mental health needs. Patient has previous engagement with outpatient mental health providers but denies any current treatment. Plan: Patient has historically declined aftercare assistance while on the unit. [facility] will continue to work with patient to identify aftercare plans. Patient encouraged to engage in all activities that are offered to them while they are on the unit. Patient report needing additional current time. Patient encouraged to seek out [facility] unit staff should they identify any additional needs or concerns. Comment: Please note this report has been produced using speech recognition software and may contain errors related to that system including errors in grammar, punctuation, and spelling, as well as words and phrases that may be inappropriate. If there are any questions or concerns please feel free to contact the dictating provider for clarification. Problem: Ineffective Coping Goal: Identifies ineffective coping skills Outcome: Progressing Goal: Identifies healthy coping skills Outcome: Progressing Goal: Demonstrates healthy coping skills Outcome: Progressing Problem: Anxiety Goal: Attempts to manage anxiety with help Outcome: Progressing Goal: Verbalizes ways to manage anxiety Outcome: Progressing Goal: Implements measures to reduce anxiety Outcome: Progressing documented in this encounter [facility] 07-11-2023 Note Formatting of this n ote might be different from the original. UNIVERSITY ARCHIVIST saw patient to discuss aftercare plans and treatment post discharge. Patient declined to allow UNIVERSITY ARCHIVIST to assist with scheduling aftercare appointments. UNIVERSITY ARCHIVIST included information for agencies in patient's local community for him to call and schedule engagement with. Patient denied current SI/HI/AVH. Patient reported that their would be picking them up from the hospital and taking them back home. Patient denied needing anything further from UNIVERSITY ARCHIVIST at the time. UNIVERSITY ARCHIVIST informed patient's nurse about conversation. [facility] 07-11-2023 Note Formatting of this n ote might be different from the original. UNIVERSITY ARCHIVIST saw patient to discuss aftercare plans and treatment post discharge. Patient declined to allow UNIVERSITY ARCHIVIST to assist with scheduling aftercare appointments. UNIVERSITY ARCHIVIST included information for agencies in patient's local community for him to call and schedule engagement with. Patient denied current SI/HI/AVH. Patient reported that their would be picking them up from the hospital and taking them back home. Patient denied needing anything further from UNIVERSITY ARCHIVIST at the time. UNIVERSITY ARCHIVIST informed patient's nurse about conversation. [facility] 07-11-2023 Hospital course Narrative Images from the original note were not included. ADDICTION MEDICINE 4E DETOX UNIT DISCHARGE SUMMARY Patient MRN Maria De Jesus Hogan [id number] Admit Date Discharge Date 07/08/2023 07/11/2023 Primary Care Physician Lynda Rasheed MD Admitting Physician Jonatan Mckeon MD Consultants SW. Reason for Admission Alcohol Withdrawal Maria De Jesus Hogan is a 57 y.o. year old male with SigPMHx of alcohol use disorder, severe, depression, anxiety, HTN, CAD, stroke/TIA, GERD, Lombardo's esophagus, GI bleed, pneumatosis, COPD, patient well-known to addiction medicine, that presented to [facility] ED on 07/08 for detox. While in the ED lab work significant for NA 134, AST 79, ALT 52, EtOH 0.358, UDS negative. Patient was medically cleared for detox floor by ED physician and addiction medicine was consulted who admitted patient to their service. Upon initial contact with patient today found resting in room, in no apparent acute distress. Patient drowsy but easily arouses to verbal stimuli. Patient states decided to undergo detox as body cannot handle it anymore states has been getting sick more often. When digging deeper into what sick needs patient states has been increasingly nauseous, vomiting while drinking. Patient endorses drinking 4-5 tall boys 8% ABV (was previously using 8-9 tall boys but has recently cut back), last drink was just prior to presenting to ED. On review of systems patient endorses nausea, decreased appetite, fatigue, tremor, anxiety, headache, abdominal pain, wheezing. Denies CP, SOB, increased sputum production, purulent sputum production,v/d/c, blood in urine or stool. Patient does endorse previous history of GI bleeds and hematemesis however states this has been remote and not occurred recently since last presentation to detox. Of note on physical exam patient with mild tongue fasciculations, mild bilateral tremor in hands, inspiratory and expiratory bilateral wheezing noted. Patient states interested in engaging in IOP upon discharge, per report from social work patient does not want care team to coordinate appointments and wishes based on alone after discharge. Plan to revisit discussion regarding planning IOP engagement prior to discharge, as patient is at risk for relapse given history, this is compounded by uncertainty of follow-up plans after discharge. Patient would benefit from structured treatment and follow-up for accountability post discharge. DISCHARGE DIAGNOSIS Active Problems Principal Problem: Alcohol withdrawal syndrome without complication (HCC) Active Problems: Cigarette smoker Severe alcohol use disorder (HCC) Resolved Problems Alcohol withdrawal syndrome without complication (HCC) Body mass index is 30.68 kg/m . DETOXIFICATION COURSE Detoxed with Phenobarbital, titrated according to signs and symptoms of withdrawal. In addition, PRN medications for withdrawal symptoms added to medication regimen. CIWA scores were taken per unit protocol, scores decreased from a peak of 8--> 2 ( on the day of discharge). Thiamine and Folic Acid were administered. Of note, patient has history COPD, had bilateral wheezing upon admission, added scheduled Duoneb TID for two days, with resolution of wheezing after treatment course. While on the unit, patient was calm, cooperative, and medication compliant. No behavioral issues noted while on unit, no indication for PRN sedating medications for agitation/behavior. On the day of discharge, patient denies SI/HI/AVH, no s/s [place], no delusions noted. Pt indicated plans on discharge to follow up with IOP at [facility] on own, care team offered to schedule intake appointment for patient, however pt declined. Vitals height is 1.803 m (5' 11) and weight is 99.8 kg (220 lb). His temporal temperature is 36.6 C (97.8 F). His blood pressure is 137/77 and his pulse is 92. His respiration is 16 and oxygen saturation is 96%. Physical Exam Constitutional: General: He is not in acute distress. Appearance: He is not ill-appearing, toxic-appearing or diaphoretic. HENT: Head: Normocephalic and atraumatic. Nose: Nose normal. Mouth/Throat: Mouth: Mucous membranes are moist. Eyes: Extraocular Movements: Extraocular movements intact. Conjunctiva/sclera: Conjunctivae normal. Pupils: Pupils are equal, round, and reactive to light. Cardiovascular: Rate and Rhythm: Normal rate and regular rhythm. Pulses: Normal pulses. Heart sounds: Normal heart sounds. Pulmonary: Effort: Pulmonary effort is normal. Breath sounds: Normal breath sounds. Abdominal: Palpations: Abdomen is soft. Tenderness: There is no abdominal tenderness. There is no guarding or rebound. Musculoskeletal: Right lower leg: No edema. Left lower leg: No edema. Skin: General: Skin is warm and dry. Capillary Refill: Capillary refill takes less than 2 seconds. Neurological: General: No focal deficit present. Mental Status: He is alert and oriented to person, place, and time. Psychiatric: Behavior: Behavior normal. Labs Results for orders placed or performed during the hospital encounter of 07/08/23 SARS-CoV-2 Antigen Specimen: Nasal; Swab Result Value Ref Range SARS-CoV-2 Antigen Negative Negative CBC auto differential Result Value Ref Range Auto WBC 5.9 3.6 - 10.7 10*3/uL RBC 4.74 4.40 - 5.90 10*6/uL Hemoglobin 16.1 13.0 - 18.0 g/dL Hematocrit 45.6 40.0 - 52.0 % MCV 96.2 77.0 - 99.0 fL MCH 34.0 26.0 - 34.0 pg MCHC 35.3 30.5 - 36.0 % RDW 13.7 11.5 - 15.0 % Platelets 240 140 - 440 10*3/uL MPV 8.8 (L) 9.0 - 12.7 fL nRBC 0.0 0.0 - 2.0 /100 WBCs Neutrophils Relative 59.4 38.0 - 82.0 % Lymphocytes Relative 29.7 15.0 - 45.0 % Monocytes Relative 9.0 5.0 - 13.0 % Eosinophils Relative 1.0 0.0 - 6.0 % Basophils Relative 0.7 0.0 - 2.0 % Immature Grans % 0.2 0.0 - 2.0 % Neutrophils Absolute 3.5 1.8 - 7.5 10*3/uL Lymphocytes Absolute 1.7 1.0 - 4.3 10*3/uL Monocytes Absolute 0.5 0.0 - 0.9 10*3/uL Eosinophils Absolute 0.1 0.0 - 0.5 10*3/uL Basophils Absolute 0.0 0.0 - 0.2 10*3/uL Immature Grans Absolute 0.0 <0.1 10*3/uL Comprehensive metabolic panel Result Value Ref Range SODIUM 134 (L) 135 - 145 mmol/L POTASSIUM 4.5 3.5 - 5.1 mmol/L CHLORIDE 94 (L) 98 - 107 mmol/L CARBON DIOXIDE 26 22 - 30 mmol/L ANION GAP 13 3 - 13 mmol/L UREA NITROGEN 4 (L) 9 - 20 mg/dL CREATININE 0.69 0.66 - 1.25 mg/dL GLUCOSE 125 (H) 70 - 100 mg/dL CALCIUM 9.0 8.4 - 10.4 mg/dL AST (SGOT) 79 (H) 15 - 46 U/L ALT 52 (H) 0 - 49 U/L ALKALINE PHOSPHATASE 113 38 - 126 U/L ALBUMIN 4.5 3.5 - 5.0 g/dL BILIRUBIN, TOTAL 0.9 0.2 - 1.3 mg/dL TOTAL PROTEIN 8.0 6.3 - 8.2 g/dL eGFR >90.0 >60.0 mL/min/1.73m*2 Drug screen panel, emergency Result Value Ref Range AMPHETAMINE SCREEN Negative BARBITURATES SCREEN Negative BENZODIAZEPINE SCREEN Negative COCAINE METAB. SCREEN Negative METHADONE SCREEN Negative OPIATES SCREEN Negative OXYCODONE SCREEN Negative PHENCYCLIDINE SCREEN Negative Ethanol Result Value Ref Range ETHANOL IN SER/PLAS 0.358 (HH) 0.000 - 0.010 g/dL ECG 12 lead Result Value Ref Range Heart Rate 104 bpm QRSD Interval 105 ms QT Interval 360 ms QTC Interval 474 ms P [place] 58 degrees QRS [place] 81 degrees T Wave [place] 39 degrees VA Interval 149 ms Imaging ECG 12 lead Result Date: 07/08/2023 Sinus tachycardia Probable left atrial enlargement No previous ECG available for comparison Electronically Signed On 07-08-2023 18:36:57 EDT by Catalino Mujica Scheduled Inpatient Meds folic acid, 1 mg, Oral, Daily gabapentin, 600 mg, Oral, TID ipratropium-albuterol, 3 mL, Nebulization, TID melatonin, 5 mg, Oral, Nightly pantoprazole, 40 mg, Oral, qAM AC PHENobarbital, 97.2 mg, Oral, Q4H thiamine, 100 mg, Oral, Daily PRN Inpatient Meds PRN medications: albuterol, aluminum & magnesium hydroxide-simethicone, hydrOXYzine pamoate, ibuprofen, nicotine polacrilex, ondansetron ODT, traZODone DISCHARGE INSTRUCTIONS Activity activity as tolerated. Disposition Home. Medication List ASK your doctor about these medications albuterol 108 (90 Base) MCG/ACT inhaler Inhale 2 puffs every 6 hours as needed for wheezing or shortness of breath. calcipotriene 0.005 % cream Commonly known as: Dovonex Apply topically 2 times daily. gabapentin 600 MG tablet Commonly known as: Neurontin Take 1 tablet (600 mg) by mouth 3 times daily. melatonin 5 MG tablet Take 1 tablet (5 mg) by mouth Nightly. Multiple Vitamins tablet Take 1 tablet by mouth daily. nicotine 14 MG/24HR patch Commonly known as: Nicoderm, Step 2 Place 1 patch on the skin daily. Do not start before October 23, 2022. pantoprazole 40 MG EC tablet Commonly known as: ProtoNix Take 1 tablet (40 mg) by mouth every morning (before breakfast). Thiamine Mononitrate 100 MG tablet Commonly known as: Vitamin B1 Take 1 tablet (100 mg) by mouth daily. Follow Up [facility] [address] [place] [address], [address] [place] [address] Schedule an appointment as soon as possible for a visit to engage in IOP/Counseling needs for addiction medicine follow up. [facility], [address], [facility] Schedule an appointment as soon as possible for a visit to engage in IOP/Counseling needs for addiction medicine follow up. No future appointments. The patient was also instructed to: Attend AA/NA meetings or a similar 12-step program. Abstain from any mind or mood altering substances that are not prescribed. Follow up with their primary care doctor and/or psychiatrist as soon as possible. Pending studies or issues to follow up with: None Time spent on discharge summary: > 30 minutes Associated attestation - Jonatan Mckeon MD - 07/11/2023 4:39 PM EDT I saw the patient on the day of discharge and agree with the discharge plans and disposition as recorded by the resident. I personally spent over 30 minutes in the discharge planning process. Jonatan Mckeon MD documented in this encounter [facility] 07-10-2023 Nurse Note Patient assessed in group room. Pt is up and steady, seen socializing with other patients. Pt is cooperative and med compliant. Pt denies SI/HI/AVH. Pt encouraged to notify staff for any questions and concerns. [facility] 07-10-2023 Nurse Note Patient assessed in group room. Pt is up and steady, seen socializing with other patients. Pt is cooperative and med compliant. Pt denies SI/HI/AVH. Pt encouraged to notify staff for any questions and concerns. Mr. Hogan is sitting up in his room. He reports eating early this morning. He was encouraged to attend meetings offered. Patient assessed in patient's room. Pt is up and steady, withdrawn to room. Pt is cooperative and med compliant. Pt denies SI/HI/AVH. Pt encouraged to notify staff for any questions and concerns. documented in this encounter [facility] 07-10-2023 Nurse Note Mr. Hogan is sitting up in his room. He reports eating early this morning. He was encouraged to attend meetings offered. [facility] 07-09-2023 Nurse Note Patient assessed in patient's room. Pt is up and steady, withdrawn to room. Pt is cooperative and med compliant. Pt denies SI/HI/AVH. Pt encouraged to notify staff for any questions and concerns. [facility] 07-09-2023 History and physical note Images from the original note were not included. ADDICTION MEDICINE 4E DETOX UNIT H&P Patient: Maria De Jesus Hogna Admit Date: 07/08/2023 Primary Care Physician: Lynda Rasheed MD HISTORY OF PRESENT ILLNESS Chief Complaint Patient presents with Detox Pt. States he would like to come in for inpatient detox. States he has been drinking 8-9 tallboys per day since he was a teen. Pt. States he has never attempted to detox before. States last drink was less that 30mins ago. Maria De Jesus Hogan is a 57 y.o. year old male with SigPMHx of alcohol use disorder, severe, depression, anxiety, HTN, CAD, stroke/TIA, GERD, Lombardo's esophagus, GI bleed, pneumatosis, COPD, patient well-known to addiction medicine, that presented to [facility] ED on 07/08 for detox. While in the ED lab work significant for NA 134, AST 79, ALT 52, EtOH 0.358, UDS negative. Patient was medically cleared for detox floor by ED physician and addiction medicine was consulted who admitted patient to their service. Upon initial contact with patient today found resting in room, in no apparent acute distress. Patient drowsy but easily arouses to verbal stimuli. Patient states decided to undergo detox as body cannot handle it anymore states has been getting sick more often. When digging deeper into what sick needs patient states has been increasingly nauseous, vomiting while drinking. Patient endorses drinking 4-5 tall boys 8% ABV (was previously using 8-9 tall boys but has recently cut back), last drink was just prior to presenting to ED. On review of systems patient endorses nausea, decreased appetite, fatigue, tremor, anxiety, headache, abdominal pain, wheezing. Denies CP, SOB, increased sputum production, purulent sputum production,v/d/c, blood in urine or stool. Patient does endorse previous history of GI bleeds and hematemesis however states this has been remote and not occurred recently since last presentation to detox. Of note on physical exam patient with mild tongue fasciculations, mild bilateral tremor in hands, inspiratory and expiratory bilateral wheezing noted. Patient states interested in engaging in IOP upon discharge, per report from social work patient does not want care team to coordinate appointments and wishes based on alone after discharge. Plan to revisit discussion regarding planning IOP engagement prior to discharge, as patient is at risk for relapse given history, this is compounded by uncertainty of follow-up plans after discharge. Patient would benefit from structured treatment and follow-up for accountability post discharge. SUBSTANCE USE HISTORY Brief Substance Use Narrative Patient currently drinking 4-5 tall boys a percent ABV, states was previously using 8-9 tall boys per day however recently cut back. States last drink was within 1 hour of arrival to ED. Patient denies liquor. States has been drinking heavily since mid teens. States drinking became regular and 20s, problematic in late 30s to 40s. Endorses longest history of sobriety roughly 1 year. Patient has remote history of benzo, cocaine, marijuana use. Of note patient admitted to detox in 02/08/2023,09/10/2022, 10/25/21, 02/15/2021 (left AMA), 06/09/2020, 10/01/2019, 08/31/2019 (left AMA), 2017 (left AMA), 2015 (left AMA). In addition patient has also also had multiple hospitalizations for hematemesis and GI bleed with addiction medicine as consult. Patient has history of hospitalization at [facility] for mood disorders. Current Substance Use Alcohol: 4-5 Tall boys 8 % ABV ( was previously using 8-9). Amphetamines: Denies. Benzos: remote history. Cocaine: Remote history. Hallucinogens: Denies. Marijuana: remote history. Nicotine: states 3PPD. Opioids: Denies. Treatment History Inpatient Rehab: denies. Chem Dep IOP: Numerous. Detoxifications: Numerous. 12 Step Meetings: Previous engagement. Medication Assisted Treatment: Endorses history of using Naltrexone and Vivitrol [place] [] IVDA. [x] Blackouts related to substance use. [] History of withdrawal seizures. [] History of delirium tremens. [] History of overdoses. [x] Legal consequences of substance use. Substance Use Disorder Criteria 2-3 = mild; 4-5 = moderate; 6 or >6 = severe substance use disorder [x] Taking substance in larger amounts and/or for longer than intended. [x] Wanting to cut down or quit but not being able to. [x] Spending a lot of time obtaining the substance. [x] Craving or a strong desire to use substance. [x] Repeatedly doesn't carry out major obligations due to substance use. [x] Using despite recurring social or interpersonal problems. [x] Reducing social, occupational, or recreational activities. [x] Recurrent use in physically hazardous situations. [x] Consistent use despite recurrent physical or psychological difficulties. [x] Tolerance (increased amounts to achieve intoxication or diminished effect). [x] Withdrawal syndrome or the substance is used to avoid withdrawal. REMAINING HISTORY Psychiatric History Current Psychiatrist: Denies current Current Medications: Denies Diagnoses: Anxiety, depression Previous Medication Trials: Patient unsure at this time Psychiatric Hospitalizations: Denies however per chart review has history of psychiatric admission for SI. Previous Suicide Attempts: Denies, of note SI while intoxicated Adverse Childhood Events: of parent early Trauma History: Father at 11 years old History of Head Injuries: Yes, several falls while intoxicated Past Medical History Past Medical History: Diagnosis Date Alcohol abuse Alcohol dependence with withdrawal (HCC) 08/31/2019 Alcohol intoxication without use disorder, uncomplicated (HCC) 10/01/2019 Alcohol use disorder 09/10/2022 Alcohol withdrawal syndrome with complication (HCC) 09/27/2021 Alcohol withdrawal, uncomplicated (HCC) 08/31/2019 Alcohol withdrawal, with unspecified complication (HCC) 10/02/2019 Alcohol withdrawal, with unspecified complication (HCC) 10/02/2019 Alcoholism (CMS/HCC) (HCC) Anxiety Arthritis Maria De Jesus Cerebral artery occlusion with cerebral infarction (HCC) Cerebrovascular disease Depression GERD (gastroesophageal reflux disease) Maria De Jesus Hypertension Insomnia Past Surgical History Past Surgical History: Procedure Laterality Date COLONOSCOPY 06/10/2020 EGD/Dr Madison/[facility] CYST REMOVAL face EGD (HISTORICAL) 07/23/2022 Dr. Estrella-[facility] SMALL INTESTINE SURGERY UPPER GASTROINTESTINAL ENDOSCOPY 09/27/2021 normal WISDOM TOOTH EXTRACTION Family History Family History Problem Relation Name Age of Onset Depression Sister Maria De Jesus Hogan Other ([id number]) Sister Maria De Jesus Hogan agoraphobia Arthritis Sister Maria De Jesus Hogan Cancer Mother Maria De Jesus Hogan colon rectal cancer; dx after age 50 Other ([id number]) Mother Maria De Jesus Hogan alcoholism Alcohol abuse Mother Maria De Jesus Hogan Stroke Mother Maria De Jesus Hogan Other ([id number]) Father Maria De Jesus Hogan h/o rheumatic fever, cardiac arrest due to bee sting Hypertension Father Maria De Jesus Hogan Social Determinants of Health Tobacco Use: High Risk (05/21/2023) Patient History Smoking Tobacco Use: Every Day Smokeless Tobacco Use: Never Passive Exposure: Not on file Alcohol Use: Alcohol Misuse (07/09/2023) AUDIT-C Frequency of Alcohol Consumption: 4 or more times a week Average Number of Drinks: 7 to 9 Frequency of Binge Drinking: Daily or almost daily Financial Resource Strain: Low Risk (07/09/2023) Overall Financial Resource Strain (CARDIA) Difficulty of Paying Living Expenses: Not very hard Food Insecurity: No Food Insecurity (07/09/2023) Hunger Vital Sign Worried About Running Out of Food in the Last Year: Never true Ran Out of Food in the Last Year: Never true Transportation Needs: No Transportation Needs (07/09/2023) PRAPARE - Transportation Lack of Transportation (Medical): No Lack of Transportation (Non-Medical): No Physical Activity: Inactive (07/09/2023) Exercise Vital Sign Days of Exercise per Week: 0 days Minutes of Exercise per Session: 0 min Stress: Stress Concern Present (07/09/2023) [place] [employer] - Occupational Stress Questionnaire Feeling of Stress : Very much Social Connections: Moderately Isolated (07/09/2023) Social Connection and Isolation Panel [NHANES] Frequency of Communication with Friends and Family: More than three times a week Frequency of Social Gatherings with Friends and Family: More than three times a week Attends Synagogue Services: Never Active Member of Clubs or Organizations: No Attends Club or Organization Meetings: Never Marital Status: Intimate Partner Violence: Not At Risk (07/09/2023) Humiliation, Afraid, Rape, and Kick questionnaire Fear of Current or Ex-Partner: No Emotionally Abused: No Physically Abused: No Sexually Abused: No Depression: None or minimal depression (07/09/2023) PHQ-9 PHQ-9 Score: 1 Housing Stability: Low Risk (07/09/2023) Housing Stability Vital Sign Unable to Pay for Housing in the Last Year: No Number of Places Lived in the Last Year: 1 Unstable Housing in the Last Year: No Utilities: Not At Risk (07/09/2023) [facility] Utilities Threatened with loss of utilities: No REVIEW OF SYSTEMS Review of Systems Constitutional: Positive for appetite change, diaphoresis and fatigue. Eyes: Negative for visual disturbance. Respiratory: Positive for wheezing. Negative for cough, chest tightness and shortness of breath. Cardiovascular: Negative for chest pain. Gastrointestinal: Positive for abdominal pain and nausea. Negative for blood in stool, diarrhea and vomiting. Musculoskeletal: Positive for myalgias. Neurological: Positive for tremors and headaches. Negative for light-headedness. Psychiatric/Behavioral: Negative for agitation and confusion. The patient is nervous/anxious. EXAM Vitals Vitals: 07/09/23 1143 07/09/23 1433 07/09/23 1727 07/09/23 1728 BP: (!) 153/110 119/78 BP Location: Patient Position: Pulse: 117 70 109 Resp: 16 18 Temp: 36.1 C (97 F) (!) 35.9 C (96.7 F) 36.6 C (97.9 F) TempSrc: Temporal Temporal Temporal SpO2: 91% 92% 90% 94% Weight: Height: Physical Exam Constitutional: General: He is not in acute distress. Appearance: He is not toxic-appearing or diaphoretic. HENT: Head: Atraumatic. Mouth/Throat: Mouth: Mucous membranes are dry. Eyes: Conjunctiva/sclera: Conjunctivae normal. Pupils: Pupils are equal, round, and reactive to light. Comments: Mild horizontal nystagmus. Cardiovascular: Rate and Rhythm: Regular rhythm. Tachycardia present. Pulses: Normal pulses. Heart sounds: Normal heart sounds. Pulmonary: Effort: Pulmonary effort is normal. Breath sounds: Wheezing (Bilateral inspiratory and expiratory) present. Abdominal: Palpations: Abdomen is soft. Tenderness: There is no abdominal tenderness. There is no guarding or rebound. Skin: General: Skin is warm. Capillary Refill: Capillary refill takes less than 2 seconds. Neurological: General: No focal deficit present. Mental Status: He is alert and oriented to person, place, and time. Comments: Mild tongue fasciculations, DTRs intact within normal limits. Slight bilateral tremor. IMAGING ECG 12 lead Result Date: 07/08/2023 Sinus tachycardia Probable left atrial enlargement No previous ECG available for comparison Electronically Signed On 07-08-2023 18:36:57 EDT by Catalino BRADSHAW Recent Results (from the past 48 hour(s)) ECG 12 lead Collection Time: 07/08/23 6:07 PM Result Value Ref Range Heart Rate 104 bpm QRSD Interval 105 ms QT Interval 360 ms QTC Interval 474 ms P [place] 58 degrees QRS [place] 81 degrees T Wave [place] 39 degrees [place] Interval 149 ms CBC auto differential Collection Time: 07/08/23 6:10 PM Result Value Ref Range Auto WBC 5.9 3.6 - 10.7 10*3/uL RBC 4.74 4.40 - 5.90 10*6/uL Hemoglobin 16.1 13.0 - 18.0 g/dL Hematocrit 45.6 40.0 - 52.0 % MCV 96.2 77.0 - 99.0 fL MCH 34.0 26.0 - 34.0 pg MCHC 35.3 30.5 - 36.0 % RDW 13.7 11.5 - 15.0 % Platelets 240 140 - 440 10*3/uL MPV 8.8 (L) 9.0 - 12.7 fL nRBC 0.0 0.0 - 2.0 /100 WBCs Neutrophils Relative 59.4 38.0 - 82.0 % Lymphocytes Relative 29.7 15.0 - 45.0 % Monocytes Relative 9.0 5.0 - 13.0 % Eosinophils Relative 1.0 0.0 - 6.0 % Basophils Relative 0.7 0.0 - 2.0 % Immature Grans % 0.2 0.0 - 2.0 % Neutrophils Absolute 3.5 1.8 - 7.5 10*3/uL Lymphocytes Absolute 1.7 1.0 - 4.3 10*3/uL Monocytes Absolute 0.5 0.0 - 0.9 10*3/uL Eosinophils Absolute 0.1 0.0 - 0.5 10*3/uL Basophils Absolute 0.0 0.0 - 0.2 10*3/uL Immature Grans Absolute 0.0 <0.1 10*3/uL Comprehensive metabolic panel Collection Time: 07/08/23 6:10 PM Result Value Ref Range SODIUM 134 (L) 135 - 145 mmol/L POTASSIUM 4.5 3.5 - 5.1 mmol/L CHLORIDE 94 (L) 98 - 107 mmol/L CARBON DIOXIDE 26 22 - 30 mmol/L ANION GAP 13 3 - 13 mmol/L UREA NITROGEN 4 (L) 9 - 20 mg/dL CREATININE 0.69 0.66 - 1.25 mg/dL GLUCOSE 125 (H) 70 - 100 mg/dL CALCIUM 9.0 8.4 - 10.4 mg/dL AST (SGOT) 79 (H) 15 - 46 U/L ALT 52 (H) 0 - 49 U/L ALKALINE PHOSPHATASE 113 38 - 126 U/L ALBUMIN 4.5 3.5 - 5.0 g/dL BILIRUBIN, TOTAL 0.9 0.2 - 1.3 mg/dL TOTAL PROTEIN 8.0 6.3 - 8.2 g/dL eGFR >90.0 >60.0 mL/min/1.73m*2 Ethanol Collection Time: 07/08/23 6:10 PM Result Value Ref Range ETHANOL IN SER/PLAS 0.358 (HH) 0.000 - 0.010 g/dL SARS-CoV-2 Antigen Collection Time: 07/08/23 6:11 PM Specimen: Nasal; Swab Result Value Ref Range SARS-CoV-2 Antigen Negative Negative Drug screen panel, emergency Collection Time: 07/08/23 6:13 PM Result Value Ref Range AMPHETAMINE SCREEN Negative BARBITURATES SCREEN Negative BENZODIAZEPINE SCREEN Negative COCAINE METAB. SCREEN Negative METHADONE SCREEN Negative OPIATES SCREEN Negative OXYCODONE SCREEN Negative PHENCYCLIDINE SCREEN Negative MEDICATIONS Home Meds Current Outpatient Medications Medication Instructions albuterol 108 (90 Base) MCG/ACT inhaler 2 puffs, Inhalation, Every 6 hours PRN calcipotriene (Dovonex) 0.005 % cream Topical, 2 times daily gabapentin (NEURONTIN) 600 mg, Oral, 3 times daily melatonin 5 mg, Oral, Nightly Multiple Vitamins tablet 1 tablet, Oral, Daily nicotine (Nicoderm, Step 2) 14 MG/24HR patch 1 patch, TransDERmal, Daily pantoprazole (PROTONIX) 40 mg, Oral, Daily before breakfast Thiamine Mononitrate (VITAMIN B1) 100 mg, Oral, Daily Scheduled Inpatient Meds folic acid, 1 mg, Oral, Daily gabapentin, 600 mg, Oral, TID ipratropium-albuterol, 3 mL, Nebulization, TID melatonin, 5 mg, Oral, Nightly pantoprazole, 40 mg, Oral, qAM AC PHENobarbital, 97.2 mg, Oral, Q4H therapeutic multivitamin-minerals, 1 tablet, Oral, Daily thiamine, 100 mg, Oral, Daily PRN Inpatient Meds PRN medications: albuterol, aluminum & magnesium hydroxide-simethicone, hydrOXYzine pamoate, ibuprofen, ondansetron ODT, traZODone Continuous Inpatient Infusions ASSESSMENT & PLAN Alcohol use disorder: Severe Counseled patient on biopsychosocial consequences of substance use. Encouraged professional chemical dependency treatment. Encouraged 12 step meeting attendance. Follow up plans for addiction management discussed with patient: Patient interested in IOP, patient currently declining social work coordinating appointments, patient would like to schedule appointment on her own after discharge. Will include information for [facility] and avenues. Alcohol withdrawal Last use of alcohol was on 07/07 Phenobarbital taper to manage alcohol withdrawal symptoms. 97.2 mg q 4 hours for today. CIWA scores per unit protocol. PRN medications for withdrawal symptom management added. Encouraged to participate in all unit activities. Thiamine Folic acid Gabapentin 600 mg 3 times daily Pantoprazole 40 mg daily Multivitamin COPD Patient with history of COPD, although patient with bilateral wheezing, no reported increase in dyspnea or cough, no increasing sputum, no purulent sputum. Will order DuoNeb 3 times daily for today and tomorrow and reassess. Disposition: Discharge anticipated in 3-5 days. This is pending: Resolution of withdrawal symptoms. Medical stabilization. Labs/tests/tasks to review: Duoneb . S/s withdraw Consultants to coordinate care with: SW. Associated attestation - Jonatan Mckeon MD - 07/10/2023 9:29 AM EDT I saw and evaluated the patient, participating in the laboy portions of the service. We reviewed the patient's medical record and test results. I personally spent over half of a total 55 minutes in counseling and discussion with the patient and coordination of care. This included a face to face evaluation and physical examination, and documenting clinical information on the day of visit. I have reviewed the resident's note. I agree with the resident s findings and plan. [facility] 07-09-2023 History and physical note Images from the original note were not included. ADDICTION MEDICINE DETOX UNIT H&P Patient: Maria De Jesus Hogan Admit Date: 07/08/2023 Primary Care Physician: Lynda Rasheed MD HISTORY OF PRESENT ILLNESS Chief Complaint Patient presents with Detox Pt. States he would like to come in for inpatient detox. States he has been drinking 8-9 tallboys per day since he was a teen. Pt. States he has never attempted to detox before. States last drink was less that 30mins ago. Maria De Jesus Hogan is a 57 y.o. year old male with SigPMHx of alcohol use disorder, severe, depression, anxiety, HTN, CAD, stroke/TIA, GERD, Lombardo's esophagus, GI bleed, pneumatosis, COPD, patient well-known to addiction medicine, that presented to [facility] ED on 07/08 for detox. While in the ED lab work significant for NA 134, AST 79, ALT 52, EtOH 0.358, UDS negative. Patient was medically cleared for detox floor by ED physician and addiction medicine was consulted who admitted patient to their service. Upon initial contact with patient today found resting in room, in no apparent acute distress. Patient drowsy but easily arouses to verbal stimuli. Patient states decided to undergo detox as body cannot handle it anymore states has been getting sick more often. When digging deeper into what sick needs patient states has been increasingly nauseous, vomiting while drinking. Patient endorses drinking 4-5 tall boys 8% ABV (was previously using 8-9 tall boys but has recently cut back), last drink was just prior to presenting to ED. On review of systems patient endorses nausea, decreased appetite, fatigue, tremor, anxiety, headache, abdominal pain, wheezing. Denies CP, SOB, increased sputum production, purulent sputum production,v/d/c, blood in urine or stool. Patient does endorse previous history of GI bleeds and hematemesis however states this has been remote and not occurred recently since last presentation to detox. Of note on physical exam patient with mild tongue fasciculations, mild bilateral tremor in hands, inspiratory and expiratory bilateral wheezing noted. Patient states interested in engaging in IOP upon discharge, per report from social work patient does not want care team to coordinate appointments and wishes based on alone after discharge. Plan to revisit discussion regarding planning IOP engagement prior to discharge, as patient is at risk for relapse given history, this is compounded by uncertainty of follow-up plans after discharge. Patient would benefit from structured treatment and follow-up for accountability post discharge. SUBSTANCE USE HISTORY Brief Substance Use Narrative Patient currently drinking 4-5 tall boys a percent ABV, states was previously using 8-9 tall boys per day however recently cut back. States last drink was within 1 hour of arrival to ED. Patient denies liquor. States has been drinking heavily since mid teens. States drinking became regular and 20s, problematic in late 30s to 40s. Endorses longest history of sobriety roughly 1 year. Patient has remote history of benzo, cocaine, marijuana use. Of note patient admitted to detox in 02/08/2023,09/10/2022, 10/25/21, 02/15/2021 (left AMA), 06/09/2020, 10/01/2019, 08/31/2019 (left AMA), 2017 (left AMA), 2014 (left AMA). In addition patient has also also had multiple hospitalizations for hematemesis and GI bleed with addiction medicine as consult. Patient has history of hospitalization at [facility] for mood disorders. Current Substance Use Alcohol: 4-5 Tall boys 8 % ABV ( was previously using 8-9). Amphetamines: Denies. Benzos: remote history. Cocaine: Remote history. Hallucinogens: Denies. Marijuana: remote history. Nicotine: states 3PPD. Opioids: Denies. Treatment History Inpatient Rehab: denies. Chem Dep IOP: Numerous. Detoxifications: Numerous. 12 Step Meetings: Previous engagement. Medication Assisted Treatment: Endorses history of using Naltrexone and Vivitrol Consequences [] IVDA. [x] Blackouts related to substance use. [] History of withdrawal seizures. [] History of delirium tremens. [] History of overdoses. [x] Legal consequences of substance use. Substance Use Disorder Criteria 2-3 = mild; 4-5 = moderate; 6 or >6 = severe substance use disorder [x] Taking substance in larger amounts and/or for longer than intended. [x] Wanting to cut down or quit but not being able to. [x] Spending a lot of time obtaining the substance. [x] Craving or a strong desire to use substance. [x] Repeatedly doesn't carry out major obligations due to substance use. [x] Using despite recurring social or interpersonal problems. [x] Reducing social, occupational, or recreational activities. [x] Recurrent use in physically hazardous situations. [x] Consistent use despite recurrent physical or psychological difficulties. [x] Tolerance (increased amounts to achieve intoxication or diminished effect). [x] Withdrawal syndrome or the substance is used to avoid withdrawal. REMAINING HISTORY Psychiatric History Current Psychiatrist: Denies current Current Medications: Denies Diagnoses: Anxiety, depression Previous Medication Trials: Patient unsure at this time Psychiatric Hospitalizations: Denies however per chart review has history of psychiatric admission for SI. Previous Suicide Attempts: Denies, of note SI while intoxicated Adverse Childhood Events: of parent early Trauma History: Father at 11 years old History of Head Injuries: Yes, several falls while intoxicated Past Medical History Past Medical History: Diagnosis Date Alcohol abuse Alcohol dependence with withdrawal (HCC) 08/31/2019 Alcohol intoxication without use disorder, uncomplicated (HCC) 10/01/2019 Alcohol use disorder 09/10/2022 Alcohol withdrawal syndrome with complication (HCC) 09/27/2021 Alcohol withdrawal, uncomplicated (HCC) 08/31/2019 Alcohol withdrawal, with unspecified complication (HCC) 10/02/2019 Alcohol withdrawal, with unspecified complication (HCC) 10/02/2019 Alcoholism (CMS/HCC) (HCC) Anxiety Arthritis Maria De Jesus Cerebral artery occlusion with cerebral infarction (HCC) Cerebrovascular disease Depression GERD (gastroesophageal reflux disease) Maria De Jesus Hypertension Insomnia Past Surgical History Past Surgical History: Procedure Laterality Date COLONOSCOPY 06/10/2020 EGD/Dr Madison/[facility] REMOVAL face EGD (HISTORICAL) 07/23/2022 Dr. Estrella-[facility] SMALL INTESTINE SURGERY UPPER GASTROINTESTINAL ENDOSCOPY 09/27/2021 normal WISDOM TOOTH EXTRACTION Family History Family History Problem Relation Name Age of Onset Depression Sister Maria De Jesus Hogan Other ([id number]) Sister Maria De Jesus Hogan agoraphobia Arthritis Sister Maria De Jesus Hogan Cancer Mother Maria De Jesus Hogan colon rectal cancer; dx after age 50 Other ([id number]) Mother Maria De Jesus Hogan alcoholism Alcohol abuse Mother Maria De Jesus Hogan Stroke Mother Maria De Jesus Hogan Other ([id number]) Father Maria De Jesus Hogan h/o rheumatic fever, cardiac arrest due to bee sting Hypertension Father Maria De Jesus Hogan Social Determinants of Health Tobacco Use: High Risk (05/21/2023) Patient History Smoking Tobacco Use: Every Day Smokeless Tobacco Use: Never Passive Exposure: Not on file Alcohol Use: Alcohol Misuse (07/09/2023) AUDIT-C Frequency of Alcohol Consumption: 4 or more times a week Average Number of Drinks: 7 to 9 Frequency of Binge Drinking: Daily or almost daily Financial Resource Strain: Low Risk (07/09/2023) Overall Financial Resource Strain (CARDIA) Difficulty of Paying Living Expenses: Not very hard Food Insecurity: No Food Insecurity (07/09/2023) Hunger Vital Sign Worried About Running Out of Food in the Last Year: Never true Ran Out of Food in the Last Year: Never true Transportation Needs: No Transportation Needs (07/09/2023) PRAPARE - Transportation Lack of Transportation (Medical): No Lack of Transportation (Non-Medical): No Physical Activity: Inactive (07/09/2023) Exercise Vital Sign Days of Exercise per Week: 0 days Minutes of Exercise per Session: 0 min Stress: Stress Concern Present (07/09/2023) [place] [employer] - Occupational Stress Questionnaire Feeling of Stress : Very much Social Connections: Moderately Isolated (07/09/2023) Social Connection and Isolation Panel [NHANES] Frequency of Communication with Friends and Family: More than three times a week Frequency of Social Gatherings with Friends and Family: More than three times a week Attends Synagogue Services: Never Active Member of Clubs or Organizations: No Attends Club or Organization Meetings: Never Marital Status: Intimate Partner Violence: Not At Risk (07/09/2023) Humiliation, Afraid, Rape, and Kick questionnaire Fear of Current or Ex-Partner: No Emotionally Abused: No Physically Abused: No Sexually Abused: No Depression: None or minimal depression (07/09/2023) PHQ-9 PHQ-9 Score: 1 Housing Stability: Low Risk (07/09/2023) Housing Stability Vital Sign Unable to Pay for Housing in the Last Year: No Number of Places Lived in the Last Year: 1 Unstable Housing in the Last Year: No Utilities: Not At Risk (07/09/2023) [facility] Utilities Threatened with loss of utilities: No REVIEW OF SYSTEMS Review of Systems Constitutional: Positive for appetite change, diaphoresis and fatigue. Eyes: Negative for visual disturbance. Respiratory: Positive for wheezing. Negative for cough, chest tightness and shortness of breath. Cardiovascular: Negative for chest pain. Gastrointestinal: Positive for abdominal pain and nausea. Negative for blood in stool, diarrhea and vomiting. Musculoskeletal: Positive for myalgias. Neurological: Positive for tremors and headaches. Negative for light-headedness. Psychiatric/Behavioral: Negative for agitation and confusion. The patient is nervous/anxious. EXAM Vitals Vitals: 07/09/23 1143 07/09/23 1433 07/09/23 1727 07/09/23 1728 BP: (!) 153/110 119/78 BP Location: Patient Position: Pulse: 117 70 109 Resp: 16 18 Temp: 36.1 C (97 F) (!) 35.9 C (96.7 F) 36.6 C (97.9 F) TempSrc: Temporal Temporal Temporal SpO2: 91% 92% 90% 94% Weight: Height: Physical Exam Constitutional: General: He is not in acute distress. Appearance: He is not toxic-appearing or diaphoretic. HENT: Head: Atraumatic. Mouth/Throat: Mouth: Mucous membranes are dry. Eyes: Conjunctiva/sclera: Conjunctivae normal. Pupils: Pupils are equal, round, and reactive to light. Comments: Mild horizontal nystagmus. Cardiovascular: Rate and Rhythm: Regular rhythm. Tachycardia present. Pulses: Normal pulses. Heart sounds: Normal heart sounds. Pulmonary: Effort: Pulmonary effort is normal. Breath sounds: Wheezing (Bilateral inspiratory and expiratory) present. Abdominal: Palpations: Abdomen is soft. Tenderness: There is no abdominal tenderness. There is no guarding or rebound. Skin: General: Skin is warm. Capillary Refill: Capillary refill takes less than 2 seconds. Neurological: General: No focal deficit present. Mental Status: He is alert and oriented to person, place, and time. Comments: Mild tongue fasciculations, DTRs intact within normal limits. Slight bilateral tremor. IMAGING ECG 12 lead Result Date: 07/08/2023 Sinus tachycardia Probable left atrial enlargement No previous ECG available for comparison Electronically Signed On 07-08-2023 18:36:57 EDT by Catalino BRADSHAW Recent Results (from the past 48 hour(s)) ECG 12 lead Collection Time: 07/08/23 6:07 PM Result Value Ref Range Heart Rate 104 bpm QRSD Interval 105 ms QT Interval 360 ms QTC Interval 474 ms P [place] 58 degrees QRS [place] 81 degrees T Wave [place] 39 degrees VA Interval 149 ms CBC auto differential Collection Time: 07/08/23 6:10 PM Result Value Ref Range Auto WBC 5.9 3.6 - 10.7 10*3/uL RBC 4.74 4.40 - 5.90 10*6/uL Hemoglobin 16.1 13.0 - 18.0 g/dL Hematocrit 45.6 40.0 - 52.0 % MCV 96.2 77.0 - 99.0 fL MCH 34.0 26.0 - 34.0 pg MCHC 35.3 30.5 - 36.0 % RDW 13.7 11.5 - 15.0 % Platelets 240 140 - 440 10*3/uL MPV 8.8 (L) 9.0 - 12.7 fL nRBC 0.0 0.0 - 2.0 /100 WBCs Neutrophils Relative 59.4 38.0 - 82.0 % Lymphocytes Relative 29.7 15.0 - 45.0 % Monocytes Relative 9.0 5.0 - 13.0 % Eosinophils Relative 1.0 0.0 - 6.0 % Basophils Relative 0.7 0.0 - 2.0 % Immature Grans % 0.2 0.0 - 2.0 % Neutrophils Absolute 3.5 1.8 - 7.5 10*3/uL Lymphocytes Absolute 1.7 1.0 - 4.3 10*3/uL Monocytes Absolute 0.5 0.0 - 0.9 10*3/uL Eosinophils Absolute 0.1 0.0 - 0.5 10*3/uL Basophils Absolute 0.0 0.0 - 0.2 10*3/uL Immature Grans Absolute 0.0 <0.1 10*3/uL Comprehensive metabolic panel Collection Time: 07/08/23 6:10 PM Result Value Ref Range SODIUM 134 (L) 135 - 145 mmol/L POTASSIUM 4.5 3.5 - 5.1 mmol/L CHLORIDE 94 (L) 98 - 107 mmol/L CARBON DIOXIDE 26 22 - 30 mmol/L ANION GAP 13 3 - 13 mmol/L UREA NITROGEN 4 (L) 9 - 20 mg/dL CREATININE 0.69 0.66 - 1.25 mg/dL GLUCOSE 125 (H) 70 - 100 mg/dL CALCIUM 9.0 8.4 - 10.4 mg/dL AST (SGOT) 79 (H) 15 - 46 U/L ALT 52 (H) 0 - 49 U/L ALKALINE PHOSPHATASE 113 38 - 126 U/L ALBUMIN 4.5 3.5 - 5.0 g/dL BILIRUBIN, TOTAL 0.9 0.2 - 1.3 mg/dL TOTAL PROTEIN 8.0 6.3 - 8.2 g/dL eGFR >90.0 >60.0 mL/min/1.73m*2 Ethanol Collection Time: 07/08/23 6:10 PM Result Value Ref Range ETHANOL IN SER/PLAS 0.358 (HH) 0.000 - 0.010 g/dL SARS-CoV-2 Antigen Collection Time: 07/08/23 6:11 PM Specimen: Nasal; Swab Result Value Ref Range SARS-CoV-2 Antigen Negative Negative Drug screen panel, emergency Collection Time: 07/08/23 6:13 PM Result Value Ref Range AMPHETAMINE SCREEN Negative BARBITURATES SCREEN Negative BENZODIAZEPINE SCREEN Negative COCAINE METAB. SCREEN Negative METHADONE SCREEN Negative OPIATES SCREEN Negative OXYCODONE SCREEN Negative PHENCYCLIDINE SCREEN Negative MEDICATIONS Home Meds Current Outpatient Medications Medication Instructions albuterol 108 (90 Base) MCG/ACT inhaler 2 puffs, Inhalation, Every 6 hours PRN calcipotriene (Dovonex) 0.005 % cream Topical, 2 times daily gabapentin (NEURONTIN) 600 mg, Oral, 3 times daily melatonin 5 mg, Oral, Nightly Multiple Vitamins tablet 1 tablet, Oral, Daily nicotine (Nicoderm, Step 2) 14 MG/24HR patch 1 patch, TransDERmal, Daily pantoprazole (PROTONIX) 40 mg, Oral, Daily before breakfast Thiamine Mononitrate (VITAMIN B1) 100 mg, Oral, Daily Scheduled Inpatient Meds folic acid, 1 mg, Oral, Daily gabapentin, 600 mg, Oral, TID ipratropium-albuterol, 3 mL, Nebulization, TID melatonin, 5 mg, Oral, Nightly pantoprazole, 40 mg, Oral, qAM AC PHENobarbital, 97.2 mg, Oral, Q4H therapeutic multivitamin-minerals, 1 tablet, Oral, Daily thiamine, 100 mg, Oral, Daily PRN Inpatient Meds PRN medications: albuterol, aluminum & magnesium hydroxide-simethicone, hydrOXYzine pamoate, ibuprofen, ondansetron ODT, traZODone Continuous Inpatient Infusions ASSESSMENT & PLAN Alcohol use disorder: Severe Counseled patient on biopsychosocial consequences of substance use. Encouraged professional chemical dependency treatment. Encouraged 12 step meeting attendance. Follow up plans for addiction management discussed with patient: Patient interested in IOP, patient currently declining social work coordinating appointments, patient would like to schedule appointment on her own after discharge. Will include information for [facility] and avenues. Alcohol withdrawal Last use of alcohol was on 07/07 Phenobarbital taper to manage alcohol withdrawal symptoms. 97.2 mg q 4 hours for today. CIWA scores per unit protocol. PRN medications for withdrawal symptom management added. Encouraged to participate in all unit activities. Thiamine Folic acid Gabapentin 600 mg 3 times daily Pantoprazole 40 mg daily Multivitamin COPD Patient with history of COPD, although patient with bilateral wheezing, no reported increase in dyspnea or cough, no increasing sputum, no purulent sputum. Will order DuoNeb 3 times daily for today and tomorrow and reassess. Disposition: Discharge anticipated in 3-5 days. This is pending: Resolution of withdrawal symptoms. Medical stabilization. Labs/tests/tasks to review: Duoneb . S/s withdraw Consultants to coordinate care with: SW. Associated attestation - Jonatan Mckeon MD - 07/10/2023 9:29 AM EDT I saw and evaluated the patient, participating in the laboy portions of the service. We reviewed the patient's medical record and test results. I personally spent over half of a total 55 minutes in counseling and discussion with the patient and coordination of care. This included a face to face evaluation and physical examination, and documenting clinical information on the day of visit. I have reviewed the resident's note. I agree with the resident s findings and plan. documented in this encounter [facility] 07-09-2023 Note Formatting of this n ote might be different from the original. CAR SPOTTER met with patient again to inquire about aftercare plans. Patient reports that he is interested in reengaging with an agency for IOP in the [facility]. UNIVERSITY ARCHIVIST offered to identify aftercare agencies for patient and schedule intake appointment however patient is declining reporting that he would like to schedule his own aftercare appointments. UNIVERSITY ARCHIVIST included information for [facility] and avenues. UNIVERSITY ARCHIVIST will continue to follow-up as necessary. Patient encouraged to seek out [facility]CHIV[facility] should he identify any additional care plans. T [facility] 07-09-2023 Note Formatting of this n ote might be different from the original. CAR SPOTTER met with patient again to inquire about aftercare plans. Patient reports that he is interested in reengaging with an agency for IOP in the [facility]. UNIVERSITY ARCHIVIST offered to identify aftercare agencies for patient and schedule intake appointment however patient is declining reporting that he would like to schedule his own aftercare appointments. UNIVERSITY ARCHIVIST included information for [facility] and avenues. UNIVERSITY ARCHIVIST will continue to follow-up as necessary. Patient encouraged to seek out [facility]CHIV[facility] should he identify any additional care plans. T [facility] 07-09-2023 Note Formatting of this n ote is different from the original. Behavioral Health Psycho-Social Assessment (Social Work) Date: 07/09/2023 Patient Name: Maria De Jesus Hogan : 1965 Identifying Information: Patient is a 57-year-old male admitted to for detox and alcohol. Patient is well-known to addiction medicine team as he was previously seen in 02/08/2023 ON DETOX. Patient was seen on 05/20/2023 in a medical bed and consult services were used. Previous that patient was seen in January 2021 Where patient left AMA. Presenting Problem: Patient presented to the ED on 07/08/2019 for requesting detox and alcohol. Patient reports that he drinks 6-8 tall boys daily and has been drinking heavily since he was a teenager. States that he several admissions for detox not been able to stay sober. Patient reports last use was 1 hour prior to arrival in the ED. Psychiatric History: Patient has mental health diagnosis depression anxiety. Patient denies being on any medication for mental health needs. Patient has previous engagement with outpatient mental health providers but denies any current treatment. He has previous history of engagement with [facility] and [facility] in [place] for outpatient mental health treatment. Patient has history of psychiatric admission. Reports admission was due to suicidal ideation while intoxicated Denies history of recent or past suicide attempts. Patient denies current SI/HI/AVH. Patient does have an extensive history of passive SI secondary to intoxication. Patient denies plan, intent, or method but reports more increased feelings of depression and sadness. Patient denies recent or past history of SIB. Substance Abuse/Use: Patient reports that he is currently drinking upwards of 9, 24 ounce Natty Daddy beers daily. Patient reports his last drink was 07/08/2023. Patient labs are positive for alcohol (0.358). Patient first drank alcohol when he was [age] years old. Patient reports that his use was regular in his 20s, and problematic 12 years ago. He cannot identify a trigger to his problematic use, other than, I like beer . He drinks the point of intoxication, blackouts, and vomiting. He denies history of withdrawal seizure, alcohol overdoses, or DTs. Patient does have extensive history of falls while intoxicated. Patient reports previous history of engagement with AA as well as IOP. Patient denies any history of MAT engagement. Patient reports his longest period of sobriety was 6 months. Patient reports however after leaving the unit during his previous admission he relapsed almost immediately. Patient has previous history of detox occurring on 02/08/2023, 05/20/2023 (medical), 10/25/2021, 02/15/2021 (left AMA), 06/09/20, 10/01/19, 08/31/19 (left AMA), 2016 (left AMA), and 2014 (left AMA). He denies history of residential treatment Medical/Self-care Issues: Patient has medical issues such as COPD, Lombardo's esophagus, macrocytosis, and HTN. Patient has ongoing struggles with self-care secondary to substance use disorder. Patient is increased in both frequency and tolerance over time. Patient also report struggling to recover from the effects of his substance use. Patient reports experiencing poor nutrition and sleep secondary to his substance use. Legal/Trauma/ History: Patient denies any current legal issues. Patient reports past legal history of child support violations. Patient denies any history of childhood abuse. Patient does report however his father when he was 11 years old which was a traumatic incident to him. Patient denies any history of trauma abuse as an adult. Patient denies any history [place] or status. Family Constellation/Childhood History: Patient reports that he is currently to his living in [facility]. Patient reports that he has 3 biological children and 4 stepchildren. Patient reports that his father in his 11 years old. Patient did not report his mother is still alive currently. Patient was born and raised in [place], [place] by his mother and father. He reports that his father when he was 11 years old, and this was traumatic for him. Patient reports that he was raised primarily by his mother for the remainder of his childhood. He denies childhood abuse. Education/Work: Patient reports that he graduated high school. 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 Patient denies SSI/SSD. Cultural/Spirituality/Leisure: Patient denies any cultural needs or concerns at the current time. Patient denies identify any yarsanism preference. It is unknown if patient is attending services anywhere currently. Patient reports he used to enjoy leisure activities such as golfing but has been unable to do so due to his ongoing substance use disorder. Support Systems/Collateral Information: Patient reports that his is his primary social. Patient reports that she is sober and supportive of his recovery needs and efforts. Patient reports that his is aware that he is admitted to the hospital. C-SSRS Actual Attempt (Past 3 Months): No (Patient has history of psychiatric admission. Reports admission was due to suicidal ideation while intoxicated. Patient denies any recent history of suicide attempts) Actual Attempt (Lifetime): No (Patient denies any past history of suicide attempts) Interrupted Attempts (Past 3 Months): No (Patient denies) Interrupted Attempts (Lifetime): No (Patient denies) Aborted or Self-Interrupted Attempt (Past 3 Months): No (Patient denies) Aborted or Self-Interrupted Attempt (Lifetime): No (Patient denies) Preparatory Acts or Behavior (Past 3 Months): No (Patient denies) Preparatory Acts or Behavior (Lifetime): No (Patient denies) Has subject engaged in non-suicidal self-injurious behavior? (Past 3 Months): No (Patient denies any recent history of SIB) Has subject engaged in non-suicidal self-injurious behavior? (Lifetime): No (Patient denies any past history of SIB) Suicidal Ideation: (Patient denies current SI/HI/AVH. Patient does have an extensive history of passive SI secondary to intoxication. Patient denies plan, intent, or method but reports more increased feelings of depression and sadness) Activating Events (Recent): Recent loss(es) or other significant negative event(s) (legal, financial, relationship, etc.) Describe:: Ongoing struggles with substance use disorder Treatment History: Previous psychiatric diagnoses and treatments, Non-compliant with treatment, Not receiving treatment (Patient has mental health diagnosis depression anxiety. Patient denies being on any medication for mental health needs. Patient has previous engagement with outpatient mental health providers but denies any current treatment.) Clinical Status (Recent): Hopelessness, Major depressive episode, Highly impulsive behavior, Substance abuse or dependence, Agitation or severe anxiety, Perceived burden on family or others (Risk factors) Protective Factors (Recent): Identifies reasons for living, Responsibility to family or others and/or living with family, Supportive social network or family (Protective factors) Describe any suicidal, self-injurious or aggressive behavior (include dates): Patient has history of psychiatric admission. Reports admission was due to suicidal ideation while intoxicated. Denies history of recent or past suicide attempts. Patient denies current SI/HI/AVH. Patient does have an extensive history of passive SI secondary to intoxication. Patient denies plan, intent, or method but reports more increased feelings of depression and sadness. Patient denies recent or past history of SIB. Patient has mental health diagnosis depression anxiety. Patient denies being on any medication for mental health needs. Patient has previous engagement with outpatient mental health providers but denies any current treatment. Plan: Patient has historically declined aftercare assistance while on the unit. UNIVERSITY ARCHIVIST will continue to work with patient to identify aftercare plans. Patient encouraged to engage in all activities that are offered to them while they are on the unit. Patient report needing additional current time. Patient encouraged to seek out UNIVERSITY ARCHIVIST unit staff should they identify any additional needs or concerns. Comment: Please note this report has been produced using speech recognition software and may contain errors related to that system including errors in grammar, punctuation, and spelling, as well as words and phrases that may be inappropriate. If there are any questions or concerns please feel free to contact the dictating provider for clarification. [facility] 07-09-2023 Note Formatting of this n ote is different from the original. Behavioral Health Psycho-Social Assessment (Social Work) Date: 07/09/2023 Patient Name: Maria De Jesus Hogan : 1965 Identifying Information: Patient is a 57-year-old male admitted to for detox and alcohol. Patient is well-known to addiction medicine team as he was previously seen in 02/08/2023 ON DETOX. Patient was seen on 05/20/2023 in a medical bed and consult services were used. Previous that patient was seen in January 2021 Where patient left [place]. Presenting Problem: Patient presented to the ED on 07/08/2019 for requesting detox and alcohol. Patient reports that he drinks 6-8 tall boys daily and has been drinking heavily since he was a teenager. States that he several admissions for detox not been able to stay sober. Patient reports last use was 1 hour prior to arrival in the ED. Psychiatric History: Patient has mental health diagnosis depression anxiety. Patient denies being on any medication for mental health needs. Patient has previous engagement with outpatient mental health providers but denies any current treatment. He has previous history of engagement with [facility] in [place] for outpatient mental health treatment. Patient has history of psychiatric admission. Reports admission was due to suicidal ideation while intoxicated Denies history of recent or past suicide attempts. Patient denies current SI/HI/AVH. Patient does have an extensive history of passive SI secondary to intoxication. Patient denies plan, intent, or method but reports more increased feelings of depression and sadness. Patient denies recent or past history of SIB. Substance Abuse/Use: Patient reports that he is currently drinking upwards of 9, 24 ounce Natty Kelli beers daily. Patient reports his last drink was 07/08/2023. Patient labs are positive for alcohol (0.358). Patient first drank alcohol when he was [age] years old. Patient reports that his use was regular in his 20s, and problematic 12 years ago. He cannot identify a trigger to his problematic use, other than, I like beer . He drinks the point of intoxication, blackouts, and vomiting. He denies history of withdrawal seizure, alcohol overdoses, or DTs. Patient does have extensive history of falls while intoxicated. Patient reports previous history of engagement with AA as well as IOP. Patient denies any history of MAT engagement. Patient reports his longest period of sobriety was 6 months. Patient reports however after leaving the unit during his previous admission he relapsed almost immediately. Patient has previous history of detox occurring on 02/08/2023, 05/20/2023 (medical), 10/25/2021, 02/15/2021 (left AMA), 06/09/20, 10/01/19, 08/31/19 (left AMA), 2016 (left AMA), and 2014 (left AMA). He denies history of residential treatment Medical/Self-care Issues: Patient has medical issues such as COPD, Lombardo's esophagus, macrocytosis, and HTN. Patient has ongoing struggles with self-care secondary to substance use disorder. Patient is increased in both frequency and tolerance over time. Patient also report struggling to recover from the effects of his substance use. Patient reports experiencing poor nutrition and sleep secondary to his substance use. Legal/Trauma/ History: Patient denies any current legal issues. Patient reports past legal history of child support violations. Patient denies any history of childhood abuse. Patient does report however his father when he was 11 years old which was a traumatic incident to him. Patient denies any history of trauma abuse as an adult. Patient denies any history [place] or status. Family Constellation/Childhood History: Patient reports that he is currently to his living in [facility]. Patient reports that he has 3 biological children and 4 stepchildren. Patient reports that his father in his 11 years old. Patient did not report his mother is still alive currently. Patient was born and raised in [place], [place] by his mother and father. He reports that his father when he was 11 years old, and this was traumatic for him. Patient reports that he was raised primarily by his mother for the remainder of his childhood. He denies childhood abuse. Education/Work: Patient reports that he graduated high school. 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 Patient denies SSI/SSD. Cultural/Spirituality/Leisure: Patient denies any cultural needs or concerns at the current time. Patient denies identify any yarsanism preference. It is unknown if patient is attending services anywhere currently. Patient reports he used to enjoy leisure activities such as golfing but has been unable to do so due to his ongoing substance use disorder. Support Systems/Collateral Information: Patient reports that his is his primary social. Patient reports that she is sober and supportive of his recovery needs and efforts. Patient reports that his is aware that he is admitted to the hospital. C-SSRS Actual Attempt (Past 3 Months): No (Patient has history of psychiatric admission. Reports admission was due to suicidal ideation while intoxicated. Patient denies any recent history of suicide attempts) Actual Attempt (Lifetime): No (Patient denies any past history of suicide attempts) Interrupted Attempts (Past 3 Months): No (Patient denies) Interrupted Attempts (Lifetime): No (Patient denies) Aborted or Self-Interrupted Attempt (Past 3 Months): No (Patient denies) Aborted or Self-Interrupted Attempt (Lifetime): No (Patient denies) Preparatory Acts or Behavior (Past 3 Months): No (Patient denies) Preparatory Acts or Behavior (Lifetime): No (Patient denies) Has subject engaged in non-suicidal self-injurious behavior? (Past 3 Months): No (Patient denies any recent history of SIB) Has subject engaged in non-suicidal self-injurious behavior? (Lifetime): No (Patient denies any past history of SIB) Suicidal Ideation: (Patient denies current SI/HI/AVH. Patient does have an extensive history of passive SI secondary to intoxication. Patient denies plan, intent, or method but reports more increased feelings of depression and sadness) Activating Events (Recent): Recent loss(es) or other significant negative event(s) (legal, financial, relationship, etc.) Describe:: Ongoing struggles with substance use disorder Treatment History: Previous psychiatric diagnoses and treatments, Non-compliant with treatment, Not receiving treatment (Patient has mental health diagnosis depression anxiety. Patient denies being on any medication for mental health needs. Patient has previous engagement with outpatient mental health providers but denies any current treatment.) Clinical Status (Recent): Hopelessness, Major depressive episode, Highly impulsive behavior, Substance abuse or dependence, Agitation or severe anxiety, Perceived burden on family or others (Risk factors) Protective Factors (Recent): Identifies reasons for living, Responsibility to family or others and/or living with family, Supportive social network or family (Protective factors) Describe any suicidal, self-injurious or aggressive behavior (include dates): Patient has history of psychiatric admission. Reports admission was due to suicidal ideation while intoxicated. Denies history of recent or past suicide attempts. Patient denies current SI/HI/AVH. Patient does have an extensive history of passive SI secondary to intoxication. Patient denies plan, intent, or method but reports more increased feelings of depression and sadness. Patient denies recent or past history of SIB. Patient has mental health diagnosis depression anxiety. Patient denies being on any medication for mental health needs. Patient has previous engagement with outpatient mental health providers but denies any current treatment. Plan: Patient has historically declined aftercare assistance while on the unit. UNIVERSITY ARCHIVIST will continue to work with patient to identify aftercare plans. Patient encouraged to engage in all activities that are offered to them while they are on the unit. Patient report needing additional current time. Patient encouraged to seek out UNIVERSITY ARCHIVIST unit staff should they identify any additional needs or concerns. Comment: Please note this report has been produced using speech recognition software and may contain errors related to that system including errors in grammar, punctuation, and spelling, as well as words and phrases that may be inappropriate. If there are any questions or concerns please feel free to contact the dictating provider for clarification. [facility] 07-09-2023 Hospital Discharge instructions BENNIE Solis - 07/09/2023 8:26 AM EDT After detox you should abstain from any use of any mood altering chemical Appointment with your primary care physician should be scheduled It is highly recommended that you attend post hospital treatment Please read the information give to you - Intro to 12 step programs Call the National Suicide Prevention Hotline if needed at: 7-179-524-CXJW (0107) Please call the following number should you have questions regarding your discharge or aftercare appointments: [facility] documented in this encounter [facility] 07-09-2023 Plan of care note Problem: Ineffective Coping Goal: Identifies ineffective coping skills Outcome: Progressing Goal: Identifies healthy coping skills Outcome: Progressing Goal: Demonstrates healthy coping skills Outcome: Progressing Problem: Anxiety Goal: Attempts to manage anxiety with help Outcome: Progressing Goal: Verbalizes ways to manage anxiety Outcome: Progressing Goal: Implements measures to reduce anxiety Outcome: Progressing [facility] 07-09-2023 Emergency department Note Report to [facility] at bedside. Pt packaged for transport to [facility] detox. Final wanding by protective services. Papito Ruiz RN 07/09/2340 [facility] 07-09-2023 Emergency department Note Report to [facility] at bedside. Pt packaged for transport to [facility] detox. Final wanding by protective services. Papito Ruiz RN 07/09/23 004 Report given to JAY Duran at by this RN. Reynaldo Acevdeo RN 07/08/23 2259 Emergency Department Encounter [facility] ED Patient: Maria De Jesus Hogan : 1965 Date of Evaluation: 07/08/2023 ED Supervising Physician: CATALINO MUJICA MD I independently examined and evaluated Maria De Jesus Hogan. This will serve as my Supervisory note and shared attestation. I did perform a substantive portion of the visit including all aspects of the Medical Decision Making. I wore appropriate PPE for the entirety of this encounter. History: In brief, Maria De Jesus Hogan is a 57 y.o. male that presents to the emergency department stating that he wants to be detox. He says that what is motivating him to be detoxed as he does not want to . He drinks significant amount of alcohol. He has been doing this since he was a kid. He has not been detoxed before. He denies any drug use. He states that he has no suicidal ideation. His last drink was 30 minutes ago. Focused exam: On examination the patient is a older middle-aged male found sitting in a chair. He is alert and oriented. He is hypertensive as well as tachycardic. Chest is clear. Normal cardiac exam. Abdomen is soft flat and is nontender. Bowel sounds normal active. Differential Diagnosis: Differential diagnosis includes acute EtOH intoxication, early withdrawal symptoms, depression. Diagnostic testing undertaken, as well as those tests considered but not ordered: Medical screening laboratory work will be obtained on this patient prior to consideration of psychobehavioral admission. This laboratory work will consist of a complete blood count, metabolic panel, alcohol level, drugs of abuse, as well as COVID testing. ED testing and evaluation will be obtained to help differentiate these diagnostic possibilities and determine the most likely cause. Brief ED course/MDM: In the emergency department the patient has been stable. He is treated with phenobarbital orally as we await results for medical clearance. Sources of History: I evaluated other historical sources including previous outpatient records and admission records. Patient is aware of care plan. All diagnostic, treatment, and disposition decisions were made by myself in conjunction with the Resident. I also supervised laboy portions of any procedures performed by the Resident. For all further details of the patient's emergency department visit, please see their documentation. (Comment: Please note this report has been produced using speech recognition software and may contain errors related to that system including errors in grammar, punctuation, and spelling, as well as words and phrases that may be inappropriate. If there are any questions or concerns please feel free to contact the dictating provider for clarification.) CATALINO MUJICA MD [employer] Catalino Mujica MD 07/08/23 1809 EMERGENCY DEPARTMENT ENCOUNTER Pt Name: Maria De Jesus Hogan Birthdate 1965 Date of evaluation: 07/08/2023 ED Provider: Mehul Galindo II, MD CHIEF COMPLAINT Chief Complaint Patient presents with Detox Pt. States he would like to come in for inpatient detox. States he has been drinking 8-9 tallboys per day since he was a teen. Pt. States he has never attempted to detox before. States last drink was less that 30mins ago. HISTORY OF PRESENT ILLNESS (Location/Symptom, Timing/Onset, Context/Setting, Quality, Duration, Modifying Factors, Severity) Note limiting factors. I wore appropriate PPE for the entirety of this encounter. HPI Maria De Jesus Hogan is a 57 y.o. who presents to the emergency department requesting detox from alcohol. Patient states that he drinks 6-8 tall boys per day, and he has been drinking heavily since the time he was a teenager. States that he has had several admissions for alcohol detox in the past but has not been able to stay sober. Patient states his last drink was within 1 hour of arrival to the emergency department. Patient is denying any fevers or chills, nausea or vomiting, chest pain or shortness of breath, abdominal pain, bowel or bladder irregularities. Patient denies any recreational drug use. Nursing Notes were reviewed. Limitations to history: Outside historians: REVIEW OF SYSTEMS Review of Systems Pertinent positives and negatives as per HPI. PAST MEDICAL HISTORY Past Medical History: Diagnosis Date Alcohol abuse Alcohol dependence with withdrawal (HCC) 08/31/2019 Alcohol intoxication without use disorder, uncomplicated (HCC) 10/01/2019 Alcohol use disorder 09/10/2022 Alcohol withdrawal syndrome with complication (HCC) 09/27/2021 Alcohol withdrawal, uncomplicated (HCC) 08/31/2019 Alcohol withdrawal, with unspecified complication (HCC) 10/02/2019 Alcohol withdrawal, with unspecified complication (HCC) 10/02/2019 Alcoholism (CMS/HCC) (HCC) Anxiety Arthritis Maria De Jesus Cerebral artery occlusion with cerebral infarction (HCC) Cerebrovascular disease Depression GERD (gastroesophageal reflux disease) Maria De Jesus Hypertension Insomnia SURGICAL HISTORY Past Surgical History: Procedure Laterality Date COLONOSCOPY 06/10/2020 EGD/Dr Madison/[facility] CYST REMOVAL face EGD (HISTORICAL) 07/23/2022 Dr. Estrella-[facility] SMALL INTESTINE SURGERY UPPER GASTROINTESTINAL ENDOSCOPY 09/27/2021 normal WISDOM TOOTH EXTRACTION CURRENT MEDICATIONS Previous Medications ALBUTEROL 108 (90 BASE) MCG/ACT INHALER Inhale 2 puffs every 6 hours as needed for wheezing or shortness of breath. CALCIPOTRIENE (DOVONEX) 0.005 % CREAM Apply topically 2 times daily. GABAPENTIN (NEURONTIN) 600 MG TABLET Take 1 tablet (600 mg) by mouth 3 times daily. MELATONIN 5 MG TABLET Take 1 tablet (5 mg) by mouth Nightly. MULTIPLE VITAMINS TABLET Take 1 tablet by mouth daily. NICOTINE (NICODERM, STEP 2) 14 MG/24HR PATCH Place 1 patch on the skin daily. Do not start before October 23, 2022. PANTOPRAZOLE (PROTONIX) 40 MG EC TABLET Take 1 tablet (40 mg) by mouth every morning (before breakfast). THIAMINE MONONITRATE (VITAMIN B1) 100 MG TABLET Take 1 tablet (100 mg) by mouth daily. ALLERGIES Bee venom, Nickel, and Tramadol FAMILY HISTORY Family History Problem Relation Name Age of Onset Depression Sister Maria De Jesus Hogan Other ([id number]) Sister Maria De Jesus Hogan agoraphobia Arthritis Sister Maria De Jesus Hogan Cancer Mother Maria De Jesus Hogan colon rectal cancer; dx after age 50 Other ([id number]) Mother Maria De Jesus Hogan alcoholism Alcohol abuse Mother Maria De Jesus Hogan Stroke Mother Maria De Jesus Hogan Other ([id number]) Father Maria De Jesus Hogan h/o rheumatic fever, cardiac arrest due to bee sting Hypertension Father Maria De Jesus Hogan SOCIAL HISTORY Social History Socioeconomic History Marital status: Tobacco Use Smoking status: Every Day Packs/day: 2 Types: Cigarettes Start date: 10/10/1985 Smokeless tobacco: Never Vaping Use Vaping Use: Never used Substance and Sexual Activity Alcohol use: Yes Comment: Detox home for a week 0 drinks 02/17/23 Drug use: No Sexual activity: Yes Partners: Female control/protection: Other Comment: live with Social Determinants of Health Financial Resource Strain: Low Risk (02/09/2023) Overall Financial Resource Strain (CARDIA) Difficulty of Paying Living Expenses: Not very hard Food Insecurity: No Food Insecurity (02/09/2023) Hunger Vital Sign Worried About Running Out of Food in the Last Year: Never true Ran Out of Food in the Last Year: Never true Transportation Needs: No Transportation Needs (05/21/2023) PRAPARE - Transportation Lack of Transportation (Medical): No Lack of Transportation (Non-Medical): No Physical Activity: Inactive (02/09/2023) Exercise Vital Sign Days of Exercise per Week: 0 days Minutes of Exercise per Session: 0 min Stress: Stress Concern Present (02/09/2023) [place] [employer] - Occupational Stress Questionnaire Feeling of Stress : Very much Social Connections: Moderately Isolated (02/09/2023) Social Connection and Isolation Panel [NHANES] Frequency of Communication with Friends and Family: More than three times a week Frequency of Social Gatherings with Friends and Family: More than three times a week Attends Synagogue Services: Never Active Member of Clubs or Organizations: No Attends Club or Organization Meetings: Never Marital Status: Intimate Partner Violence: Not At Risk (05/21/2023) Humiliation, Afraid, Rape, and Kick questionnaire Fear of Current or Ex-Partner: No Emotionally Abused: No Physically Abused: No Sexually Abused: No Housing Stability: Unknown (05/21/2023) Housing Stability Vital Sign Unable to Pay for Housing in the Last Year: No Unstable Housing in the Last Year: No SCREENINGS PHYSICAL EXAM ED Triage Vitals [07/08/23 1746] Temp Heart Rate Resp BP 36.8 C (98.3 F) (!) 115 15 (!) 145/103 SpO2 Temp Source Heart Rate Source Patient Position 95 % Temporal Monitor Sitting BP Location FiO2 (%) Right arm -- Physical Exam Vitals and nursing note reviewed. Constitutional: General: He is not in acute distress. Appearance: He is well-developed. HENT: Head: Normocephalic and atraumatic. Eyes: Conjunctiva/sclera: Conjunctivae normal. Cardiovascular: Rate and Rhythm: Regular rhythm. Tachycardia present. Heart sounds: No murmur heard. Pulmonary: Effort: Pulmonary effort is normal. No respiratory distress. Breath sounds: Normal breath sounds. Abdominal: Palpations: Abdomen is soft. Tenderness: There is no abdominal tenderness. Musculoskeletal: General: No swelling. Cervical back: Neck supple. Skin: General: Skin is warm and dry. Capillary Refill: Capillary refill takes less than 2 seconds. Neurological: Mental Status: He is alert. Psychiatric: Mood and Affect: Mood normal. DIAGNOSTIC RESULTS RADIOLOGY (Per Emergency Physician): Interpretation per the Radiologist below, if available at the time of this note: No orders to display LABS: Labs Reviewed CBC WITH AUTO DIFFERENTIAL - Abnormal Result Value Auto WBC 5.9 RBC 4.74 Hemoglobin 16.1 Hematocrit 45.6 MCV 96.2 MCH 34.0 MCHC 35.3 RDW 13.7 Platelets 240 MPV 8.8 (*) nRBC 0.0 Neutrophils Relative 59.4 Lymphocytes Relative 29.7 Monocytes Relative 9.0 Eosinophils Relative 1.0 Basophils Relative 0.7 Immature Grans % 0.2 Neutrophils Absolute 3.5 Lymphocytes Absolute 1.7 Monocytes Absolute 0.5 Eosinophils Absolute 0.1 Basophils Absolute 0.0 Immature Grans Absolute 0.0 COMPREHENSIVE METABOLIC PANEL - Abnormal SODIUM 134 (*) POTASSIUM 4.5 CHLORIDE 94 (*) CARBON DIOXIDE 26 ANION GAP 13 UREA NITROGEN 4 (*) CREATININE 0.69 GLUCOSE 125 (*) CALCIUM 9.0 AST (SGOT) 79 (*) ALT 52 (*) ALKALINE PHOSPHATASE 113 ALBUMIN 4.5 BILIRUBIN, TOTAL 0.9 TOTAL PROTEIN 8.0 eGFR >90.0 ETHANOL - Abnormal ETHANOL IN SER/PLAS 0.358 (*) Narrative: NOTE: This result is for medical treatment only. Analysis performed using non-forensic procedures. SARS-COV-2 ANTIGEN - Normal SARS-CoV-2 Antigen Negative DRUGS OF ABUSE AMPHETAMINE SCREEN Negative BARBITURATES SCREEN Negative BENZODIAZEPINE SCREEN Negative COCAINE METAB. SCREEN Negative METHADONE SCREEN Negative OPIATES SCREEN Negative OXYCODONE SCREEN Negative PHENCYCLIDINE SCREEN Negative Narrative: The expected value for all of the drugs listed above is Negative. The following drugs or drug groups have been screened for by Immunoassay at the following thresholds: Amphetamine class (1000 ng/mL) Barbiturates (200 ng/mL) Benzodiazepines (200 ng/mL) Cocaine (300 ng/mL) Methadone (300 ng/mL) Opiates (300 ng/mL) Oxycodone (100 ng/mL) PCP (25 ng/mL) NOTE: These results are for medical treatment only. Analysis performed using non-forensic procedures. POSITIVE results are NOT confirmed by a more specific alternative method unless requested. If confirmation is needed, request confirmation under separate order. All other labs were within normal range or not returned as of this dictation. EMERGENCY DEPARTMENT COURSE and DIFFERENTIAL DIAGNOSIS/MDM: Vitals: Vitals: 07/08/23 1746 07/08/23 1746 07/08/23 1906 07/08/232044 BP: (!) 145/103 103/65 BP Location: Right arm Patient Position: Sitting Pulse: (!) 115 (!) 119 (!) 120 Resp: 15 16 Temp: 36.8 C (98.3 F) 36.4 C (97.6 F) TempSrc: Temporal Oral SpO2: 95% 92% Weight: 99.8 kg (220 lb) Height: 1.803 m (5' 11) 57-year-old male presenting to the emergency department requesting alcohol detox. Patient became tremulous and tachycardic after arrival. He was given 97 mg of phenobarb and 2 mg IV of Ativan and placed on CIWA. Patient had ethanol of 0.35, and he had mild AST and ALT elevation. Urine toxicology screen was negative. Patient is medically cleared to be admitted to detox at [facility]. Patient was accepted to detox and transferred there. Diagnoses as of 07/08/232048 Alcohol abuse External records reviewed: Diagnostics interpreted by me: Discussions with other clinicians: Chronic conditions impacting care: Social determinants of health affecting care: ED Medications managed: Medications LORazepam (Ativan) tablet 1 mg (has no administration in time range) Or LORazepam (Ativan) injection 1 mg (has no administration in time range) Or LORazepam (Ativan) tablet 2 mg (has no administration in time range) Or LORazepam (Ativan) injection 2 mg (has no administration in time range) Or LORazepam (Ativan) tablet 3 mg (has no administration in time range) Or LORazepam (Ativan) injection 3 mg (has no administration in time range) Or LORazepam (Ativan) tablet 4 mg (has no administration in time range) Or LORazepam (Ativan) injection 4 mg (has no administration in time range) hydrOXYzine pamoate (Vistaril) capsule 50 mg (has no administration in time range) ibuprofen tablet 400 mg (has no administration in time range) ondansetron ODT (Zofran-ODT) disintegrating tablet 4 mg (has no administration in time range) PHENobarbital (Luminal) tablet 97.2 mg (97.2 mg Oral Not Given 07/08/23 193) traZODone (Desyrel) tablet 50 mg (has no administration in time range) thiamine (Vitamin B1) tablet 100 mg (100 mg Oral Not Given 07/08/231919) folic acid (Folvite) tablet 1 mg (1 mg Oral Not Given 07/08/231919) lactated ringers bolus 1,000 mL (1,000 mL IntraVENous New Bag 07/08/232032) PHENobarbital (Luminal) tablet 97.2 mg (97.2 mg Oral Given 07/08/231902) LORazepam (Ativan) injection 2 mg (2 mg IntraVENous Given 07/08/232035) Prescription drugs considered: PROCEDURES: Unless otherwise noted below, none Procedures FINAL IMPRESSION 1. Alcohol abuse DISPOSITION Admit 07/08/2023 07:12:36 PM PATIENT REFERRED TO: No follow-up provider specified. DISCHARGE MEDICATIONS: New Prescriptions No medications on file (Comment: Please note this report has been produced using speech recognition software and may contain errors related to that system including errors in grammar, punctuation, and spelling, as well as words and phrases that may be inappropriate. If there are any questions or concerns please feel free to contact the dictating provider for clarification.) Mehul Galindo II, MD (electronically signed) Emergency Medicine Provider Mehul Galindo II, MD Resident 07/08/232053 documented in this encounter [facility] 07-08-2023 Emergency department Note Report given to JAY Duran at by this RN. Reynaldo Aecvedo RN 07/08/23 1298 [facility] 07-08-2023 Note NOTE: This result is for medical treatment only. Analysis performed using non-forensic procedures. [facility] 07-08-2023 Physician Emergency department Note Emergency Department Encounter [facility] ED Patient: Maria De Jesus Hogan : 1965 Date of Evaluation: 07/08/2023 ED Supervising Physician: CATALINO MUJICA MD I independently examined and evaluated Maria De Jesus Hogan. This will serve as my Supervisory note and shared attestation. I did perform a substantive portion of the visit including all aspects of the Medical Decision Making. I wore appropriate PPE for the entirety of this encounter. History: In brief, Maria De Jesus Hogan is a 57 y.o. male that presents to the emergency department stating that he wants to be detox. He says that what is motivating him to be detoxed as he does not want to . He drinks significant amount of alcohol. He has been doing this since he was a kid. He has not been detoxed before. He denies any drug use. He states that he has no suicidal ideation. His last drink was 30 minutes ago. Focused exam: On examination the patient is a older middle-aged male found sitting in a chair. He is alert and oriented. He is hypertensive as well as tachycardic. Chest is clear. Normal cardiac exam. Abdomen is soft flat and is nontender. Bowel sounds normal active. Differential Diagnosis: Differential diagnosis includes acute EtOH intoxication, early withdrawal symptoms, depression. Diagnostic testing undertaken, as well as those tests considered but not ordered: Medical screening laboratory work will be obtained on this patient prior to consideration of psychobehavioral admission. This laboratory work will consist of a complete blood count, metabolic panel, alcohol level, drugs of abuse, as well as COVID testing. ED testing and evaluation will be obtained to help differentiate these diagnostic possibilities and determine the most likely cause. Brief ED course/MDM: In the emergency department the patient has been stable. He is treated with phenobarbital orally as we await results for medical clearance. Sources of History: I evaluated other historical sources including previous outpatient records and admission records. Patient is aware of care plan. All diagnostic, treatment, and disposition decisions were made by myself in conjunction with the Resident. I also supervised laboy portions of any procedures performed by the Resident. For all further details of the patient's emergency department visit, please see their documentation. (Comment: Please note this report has been produced using speech recognition software and may contain errors related to that system including errors in grammar, punctuation, and spelling, as well as words and phrases that may be inappropriate. If there are any questions or concerns please feel free to contact the dictating provider for clarification.) CATALINO MUJICA MD Acute Care [facility] Catalino Mujica MD 07/08/23 1809 [facility] Phone: 07-08-2023 Physician Emergency department Note EMERGENCY DEPARTMENT ENCOUNTER Pt Name: Maria De Jesus Hogan Birthdate 1965 Date of evaluation: 07/08/2023 ED Provider: Mehul Galindo II, MD CHIEF COMPLAINT Chief Complaint Patient presents with Detox Pt. States he would like to come in for inpatient detox. States he has been drinking 8-9 tallboys per day since he was a teen. Pt. States he has never attempted to detox before. States last drink was less that 30mins ago. HISTORY OF PRESENT ILLNESS (Location/Symptom, Timing/Onset, Context/Setting, Quality, Duration, Modifying Factors, Severity) Note limiting factors. I wore appropriate PPE for the entirety of this encounter. HPI Maria De Jesus Hogan is a 57 y.o. who presents to the emergency department requesting detox from alcohol. Patient states that he drinks 6-8 tall boys per day, and he has been drinking heavily since the time he was a teenager. States that he has had several admissions for alcohol detox in the past but has not been able to stay sober. Patient states his last drink was within 1 hour of arrival to the emergency department. Patient is denying any fevers or chills, nausea or vomiting, chest pain or shortness of breath, abdominal pain, bowel or bladder irregularities. Patient denies any recreational drug use. Nursing Notes were reviewed. Limitations to history: Outside historians: REVIEW OF SYSTEMS Review of Systems Pertinent positives and negatives as per HPI. PAST MEDICAL HISTORY Past Medical History: Diagnosis Date Alcohol abuse Alcohol dependence with withdrawal (HCC) 08/31/2019 Alcohol intoxication without use disorder, uncomplicated (HCC) 10/01/2019 Alcohol use disorder 09/10/2022 Alcohol withdrawal syndrome with complication (HCC) 09/27/2021 Alcohol withdrawal, uncomplicated (HCC) 08/31/2019 Alcohol withdrawal, with unspecified complication (HCC) 10/02/2019 Alcohol withdrawal, with unspecified complication (HCC) 10/02/2019 Alcoholism (CMS/HCC) (HCC) Anxiety Arthritis Maria De Jesus Cerebral artery occlusion with cerebral infarction (HCC) Cerebrovascular disease Depression GERD (gastroesophageal reflux disease) Maria De Jesus Hypertension Insomnia SURGICAL HISTORY Past Surgical History: Procedure Laterality Date COLONOSCOPY 06/10/2020 EGD/Dr Madison/B CYST REMOVAL face EGD (HISTORICAL) 07/23/2022 Dr. Estrella-[facility] SMALL INTESTINE SURGERY UPPER GASTROINTESTINAL ENDOSCOPY 09/27/2021 normal WISDOM TOOTH EXTRACTION CURRENT MEDICATIONS Previous Medications ALBUTEROL 108 (90 BASE) MCG/ACT INHALER Inhale 2 puffs every 6 hours as needed for wheezing or shortness of breath. CALCIPOTRIENE (DOVONEX) 0.005 % CREAM Apply topically 2 times daily. GABAPENTIN (NEURONTIN) 600 MG TABLET Take 1 tablet (600 mg) by mouth 3 times daily. MELATONIN 5 MG TABLET Take 1 tablet (5 mg) by mouth Nightly. MULTIPLE VITAMINS TABLET Take 1 tablet by mouth daily. NICOTINE (NICODERM, STEP 2) 14 MG/24HR PATCH Place 1 patch on the skin daily. Do not start before October 23, 2022. PANTOPRAZOLE (PROTONIX) 40 MG EC TABLET Take 1 tablet (40 mg) by mouth every morning (before breakfast). THIAMINE MONONITRATE (VITAMIN B1) 100 MG TABLET Take 1 tablet (100 mg) by mouth daily. ALLERGIES Bee venom, Nickel, and Tramadol FAMILY HISTORY Family History Problem Relation Name Age of Onset Depression Sister Maria De Jesus Hogan Other ([id number]) Sister Maria De Jesus Hogan agoraphobia Arthritis Sister Maria De Jesus Hogan Cancer Mother Maria De Jesus Hogan colon rectal cancer; dx after age 50 Other ([id number]) Mother Maria De Jesus Hogan alcoholism Alcohol abuse Mother Maria De Jesus Hogan Stroke Mother Maria De Jesus Hogan Other ([id number]) Father Maria De Jesus Hogan h/o rheumatic fever, cardiac arrest due to bee sting Hypertension Father Maria De Jesus Hogan SOCIAL HISTORY Social History Socioeconomic History Marital status: Tobacco Use Smoking status: Every Day Packs/day: 2 Types: Cigarettes Start date: 10/10/1985 Smokeless tobacco: Never Vaping Use Vaping Use: Never used Substance and Sexual Activity Alcohol use: Yes Comment: Detox home for a week 0 drinks 02/17/23 Drug use: No Sexual activity: Yes Partners: Female control/protection: Other Comment: live with Social Determinants of Health Financial Resource Strain: Low Risk (02/09/2023) Overall Financial Resource Strain (CARDIA) Difficulty of Paying Living Expenses: Not very hard Food Insecurity: No Food Insecurity (02/09/2023) Hunger Vital Sign Worried About Running Out of Food in the Last Year: Never true Ran Out of Food in the Last Year: Never true Transportation Needs: No Transportation Needs (05/21/2023) PRAPARE - Transportation Lack of Transportation (Medical): No Lack of Transportation (Non-Medical): No Physical Activity: Inactive (02/09/2023) Exercise Vital Sign Days of Exercise per Week: 0 days Minutes of Exercise per Session: 0 min Stress: Stress Concern Present (02/09/2023) [place] [employer] - Occupational Stress Questionnaire Feeling of Stress : Very much Social Connections: Moderately Isolated (02/09/2023) Social Connection and Isolation Panel [NHANES] Frequency of Communication with Friends and Family: More than three times a week Frequency of Social Gatherings with Friends and Family: More than three times a week Attends Synagogue Services: Never Active Member of Clubs or Organizations: No Attends Club or Organization Meetings: Never Marital Status: Intimate Partner Violence: Not At Risk (05/21/2023) Humiliation, Afraid, Rape, and Kick questionnaire Fear of Current or Ex-Partner: No Emotionally Abused: No Physically Abused: No Sexually Abused: No Housing Stability: Unknown (05/21/2023) Housing Stability Vital Sign Unable to Pay for Housing in the Last Year: No Unstable Housing in the Last Year: No SCREENINGS PHYSICAL EXAM ED Triage Vitals [07/08/23 1746] Temp Heart Rate Resp BP 36.8 C (98.3 F) (!) 115 15 (!) 145/103 SpO2 Temp Source Heart Rate Source Patient Position 95 % Temporal Monitor Sitting BP Location FiO2 (%) Right arm -- Physical Exam Vitals and nursing note reviewed. Constitutional: General: He is not in acute distress. Appearance: He is well-developed. HENT: Head: Normocephalic and atraumatic. Eyes: Conjunctiva/sclera: Conjunctivae normal. Cardiovascular: Rate and Rhythm: Regular rhythm. Tachycardia present. Heart sounds: No murmur heard. Pulmonary: Effort: Pulmonary effort is normal. No respiratory distress. Breath sounds: Normal breath sounds. Abdominal: Palpations: Abdomen is soft. Tenderness: There is no abdominal tenderness. Musculoskeletal: General: No swelling. Cervical back: Neck supple. Skin: General: Skin is warm and dry. Capillary Refill: Capillary refill takes less than 2 seconds. Neurological: Mental Status: He is alert. Psychiatric: Mood and Affect: Mood normal. DIAGNOSTIC RESULTS RADIOLOGY (Per Emergency Physician): Interpretation per the Radiologist below, if available at the time of this note: No orders to display LABS: Labs Reviewed CBC WITH AUTO DIFFERENTIAL - Abnormal Result Value Auto WBC 5.9 RBC 4.74 Hemoglobin 16.1 Hematocrit 45.6 MCV 96.2 MCH 34.0 MCHC 35.3 RDW 13.7 Platelets 240 MPV 8.8 (*) nRBC 0.0 Neutrophils Relative 59.4 Lymphocytes Relative 29.7 Monocytes Relative 9.0 Eosinophils Relative 1.0 Basophils Relative 0.7 Immature Grans % 0.2 Neutrophils Absolute 3.5 Lymphocytes Absolute 1.7 Monocytes Absolute 0.5 Eosinophils Absolute 0.1 Basophils Absolute 0.0 Immature Grans Absolute 0.0 COMPREHENSIVE METABOLIC PANEL - Abnormal SODIUM 134 (*) POTASSIUM 4.5 CHLORIDE 94 (*) CARBON DIOXIDE 26 ANION GAP 13 UREA NITROGEN 4 (*) CREATININE 0.69 GLUCOSE 125 (*) CALCIUM 9.0 AST (SGOT) 79 (*) ALT 52 (*) ALKALINE PHOSPHATASE 113 ALBUMIN 4.5 BILIRUBIN, TOTAL 0.9 TOTAL PROTEIN 8.0 eGFR >90.0 ETHANOL - Abnormal ETHANOL IN SER/PLAS 0.358 (*) Narrative: NOTE: This result is for medical treatment only. Analysis performed using non-forensic procedures. SARS-COV-2 ANTIGEN - Normal SARS-CoV-2 Antigen Negative DRUGS OF ABUSE AMPHETAMINE SCREEN Negative BARBITURATES SCREEN Negative BENZODIAZEPINE SCREEN Negative COCAINE METAB. SCREEN Negative METHADONE SCREEN Negative OPIATES SCREEN Negative OXYCODONE SCREEN Negative PHENCYCLIDINE SCREEN Negative Narrative: The expected value for all of the drugs listed above is Negative. The following drugs or drug groups have been screened for by Immunoassay at the following thresholds: Amphetamine class (1000 ng/mL) Barbiturates (200 ng/mL) Benzodiazepines (200 ng/mL) Cocaine (300 ng/mL) Methadone (300 ng/mL) Opiates (300 ng/mL) Oxycodone (100 ng/mL) PCP (25 ng/mL) NOTE: These results are for medical treatment only. Analysis performed using non-forensic procedures. POSITIVE results are NOT confirmed by a more specific alternative method unless requested. If confirmation is needed, request confirmation under separate order. All other labs were within normal range or not returned as of this dictation. EMERGENCY DEPARTMENT COURSE and DIFFERENTIAL DIAGNOSIS/MDM: Vitals: Vitals: 07/08/23 1746 07/08/23 1746 07/08/23 1906 07/08/232044 BP: (!) 145/103 103/65 BP Location: Right arm Patient Position: Sitting Pulse: (!) 115 (!) 119 (!) 120 Resp: 15 16 Temp: 36.8 C (98.3 F) 36.4 C (97.6 F) TempSrc: Temporal Oral SpO2: 95% 92% Weight: 99.8 kg (220 lb) Height: 1.803 m (5' 11) 57-year-old male presenting to the emergency department requesting alcohol detox. Patient became tremulous and tachycardic after arrival. He was given 97 mg of phenobarb and 2 mg IV of Ativan and placed on CIWA. Patient had ethanol of 0.35, and he had mild AST and ALT elevation. Urine toxicology screen was negative. Patient is medically cleared to be admitted to detox at [facility]. Patient was accepted to detox and transferred there. Diagnoses as of 07/08/232048 Alcohol abuse External records reviewed: Diagnostics interpreted by me: Discussions with other clinicians: Chronic conditions impacting care: Social determinants of health affecting care: ED Medications managed: Medications LORazepam (Ativan) tablet 1 mg (has no administration in time range) Or LORazepam (Ativan) injection 1 mg (has no administration in time range) Or LORazepam (Ativan) tablet 2 mg (has no administration in time range) Or LORazepam (Ativan) injection 2 mg (has no administration in time range) Or LORazepam (Ativan) tablet 3 mg (has no administration in time range) Or LORazepam (Ativan) injection 3 mg (has no administration in time range) Or LORazepam (Ativan) tablet 4 mg (has no administration in time range) Or LORazepam (Ativan) injection 4 mg (has no administration in time range) hydrOXYzine pamoate (Vistaril) capsule 50 mg (has no administration in time range) ibuprofen tablet 400 mg (has no administration in time range) ondansetron ODT (Zofran-ODT) disintegrating tablet 4 mg (has no administration in time range) PHENobarbital (Luminal) tablet 97.2 mg (97.2 mg Oral Not Given 07/08/231929) traZODone (Desyrel) tablet 50 mg (has no administration in time range) thiamine (Vitamin B1) tablet 100 mg (100 mg Oral Not Given 07/08/231919) folic acid (Folvite) tablet 1 mg (1 mg Oral Not Given 07/08/231919) lactated ringers bolus 1,000 mL (1,000 mL IntraVENous New Bag 07/08/232032) PHENobarbital (Luminal) tablet 97.2 mg (97.2 mg Oral Given 07/08/231902) LORazepam (Ativan) injection 2 mg (2 mg IntraVENous Given 07/08/232035) Prescription drugs considered: PROCEDURES: Unless otherwise noted below, none Procedures FINAL IMPRESSION 1. Alcohol abuse DISPOSITION Admit 07/08/2023 07:12:36 PM PATIENT REFERRED TO: No follow-up provider specified. DISCHARGE MEDICATIONS: New Prescriptions No medications on file (Comment: Please note this report has been produced using speech recognition software and may contain errors related to that system including errors in grammar, punctuation, and spelling, as well as words and phrases that may be inappropriate. If there are any questions or concerns please feel free to contact the dictating provider for clarification.) Mehul Galindo II, MD (electronically signed) Emergency Medicine Provider Mehul Galindo II, MD Resident 07/08/232053 [facility] 06-26-2023 Telephone encounter Note MARIYA 9.27.23 NOV 4.4.24 [facility] 06-26-2023 Telephone encounter Note MARIYA 9.27.23 JAN 4.4.24 [facility] 06-26-2023 Miscellaneous Notes MARIYA 9.27.23 FEB 02..24 documented in this encounter [facility] 06-26-2023 Miscellaneous Notes MARIYA 9.27.23 FEB 02.4.24 documented in this encounter [facility] 06-15-2023 Telephone encounter Note This [facility] RN spoke to patient. He missed appointment with Dr Franco on 06/05 due to transportation issues. He has stayed sober and plans to call back to reschedule IOP. He just got another car. He declined AA meetings but said he is doing his best and plans to reschedule IOP. He thanked me for caring and reaching out. He said our program is great. [facility] 06-15-2023 Miscellaneous Notes This [facility] RN spoke to patient. He missed appointment with Dr Franco on 06/05 due to transportation issues. He has stayed sober and plans to call back to reschedule IOP. He just got another car. He declined AA meetings but said he is doing his best and plans to reschedule IOP. He thanked me for caring and reaching out. He said our program is great. documented in this encounter [facility] 06-15-2023 Telephone encounter Note Left message to call back ACC RN. [facility] 06-15-2023 Miscellaneous Notes Left message to call back ACC RN. documented in this encounter [facility] 06-06-2023 History of Present illness Narrative Missed Session Unexcused Pt did not call or show for Scheduled Assessment on this date. documented in this encounter [facility] 05-23-2023 Nurse Note Patient signed AMA papers and IV was discontinued per Patient request. Per Patient: Patient's outside to medicinal plant picker patient. [facility] 05-23-2023 Nurse Note Patient signed AMA papers and IV was discontinued per Patient request. Per Patient: Patient's outside to medicinal plant picker patient. Patient is stating that patient is leaving AMA this afternoon, since he is not going to be discharged. Patient states that patient needs to go home, there are multiple things that he needs to take care, it can't wait. Patient also stated that patient did not want to know that patient was leaving AMA. I instructed patient that this was going to be a really tough day. I instructed patient that he needs to stay another day. He is at a crossroads today. Patient states that he is fine, I just have lots of energy. I instructed patient that the fact that you are hiding this AMA from your is a huge red flag and warning sign. Patient continues to say that he will be just fine. Patient asked me to just go through the motions when she gets here. I told patient that I would not falsify information. Patient stated that he would then not have his come to the floor to pick him up. I instructed patient that the addiction is trying to tell his mind what to do today and not to let it. Patient states that is not the case. I also reminded patient that he would not be able to participate in the IOP program per Dr. Rodriguez due to AMA. Patient verbalized understanding. Patient continues to walk around unit at a very fast pace, multiple times an hour. documented in this encounter [facility] 05-23-2023 Note Formatting of this n ote is different from the original. Images from the original note were not included. Care Management Progress Note Pt here for alcohol withdrawal. CIWA reported as 8 2/2 anxiety per bedside Rn. Continues to receive iv phenobarb and ativan. Pt seen walking in hallways. Per discussion in round pt has IOP 06/06/23. DCP home no needs at dc. Discharge Milestones and Delays Expected Date/Time: 05/24/[address] discharge order Complete med reconciliation Case mgmt discharge readiness Clinical Stability Diagnsotic Workup Expected Discharge History Expected Date/Time Set By Reviewed At 05/24/2023 BENNIE Pichardo 05/23/2023 10:38 AM tcc estimate CIWA 8 wants discharged today remains on pheno taper 05/24/2023 Ori Bone RN 05/22/2023 7:53 AM tcc estimate 05/22/2023 Scooter Luna MD 05/21/2023 2:57 PM 05/22/2023 Scooter Luna MD 05/20/2023 11:02 PM Length of Stay (Days): 3 GMLOS: No GMLOS Documented [facility] 05-23-2023 Note Formatting of this n ote is different from the original. Images from the original note were not included. Care Management Progress Note Pt here for alcohol withdrawal. CIWA reported as 8 2/2 anxiety per bedside Rn. Continues to receive iv phenobarb and ativan. Pt seen walking in hallways. Per discussion in round pt has IOP 06/06/23. DCP home no needs at dc. Discharge Milestones and Delays Expected Date/Time: 05/24/[address] discharge order Complete med reconciliation Case mgmt discharge readiness Clinical Stability Diagnsotic Workup Expected Discharge History Expected Date/Time Set By Reviewed At 05/24/2023 BENNIE Pichardo 05/23/2023 10:38 AM tcc estimate CIWA 8 wants discharged today remains on pheno taper 05/24/2023 Ori Bone RN 05/22/2023 7:53 AM tcc estimate 05/22/2023 Scooter Luna MD 05/21/2023 2:57 PM 05/22/2023 Scooter Luna MD 05/20/2023 11:02 PM Length of Stay (Days): 3 GMLOS: No GMLOS Documented [facility] 05-23-2023 Miscellaneous Notes Images from the original note were not included. Care Management Progress Note Pt here for alcohol withdrawal. CIWA reported as 8 2/2 anxiety per bedside Rn. Continues to receive iv phenobarb and ativan. Pt seen walking in hallways. Per discussion in round pt has IOP 06/06/23. DCP home no needs at dc. Discharge Milestones and Delays Expected Date/Time: 05/24/[address] discharge order Complete med reconciliation Case mgmt discharge readiness Clinical Stability Diagnsotic Workup Expected Discharge History Expected Date/Time Set By Reviewed At 05/24/2023 BENNIE Pichardo 05/23/2023 10:38 AM tcc estimate CIWA 8 wants discharged today remains on pheno taper 05/24/2023 Ori Bone RN 05/22/2023 7:53 AM tcc estimate 05/22/2023 Scooter Luna MD 05/21/2023 2:57 PM 05/22/2023 Scooter Luna MD 05/20/2023 11:02 PM Length of Stay (Days): 3 GMLOS: No GMLOS Documented [facility] Case Management/Care Coordination Note Date of Contact: 05/22/23 Start Time: 4:20 PM End Time: 4:25 PM Duration: 5 mins Type of Contact: [id number] Patient's Identified Case Management/Care Coordination Need(s) addressed (select all that apply): Recovery Support Summary of Contact/Need at This Time: Setting an appointment for initial evaluation for Intensive Outpatient Program Case Management Plan/Intervention: (select all that apply) Follow-Up Description of Case Management Plan/Intervention: Pt was given an appointment card for 06/06/23 at 1:30 PM for an IOP evaluation. Note Any Anticipated Barriers: N/A Patient's response to Plan/Intervention (or, if applicable, outcome of Case Management collateral contact/referral): Pt was receptive to following through with evaluation appointment. Progress Towards Case Management Goal(s): [] None [] Minimal [] Moderate [] Significant [x] Case Management Goal(s) Met Additional Comments: Pt stated he was familiar with IOP services at another location and was receptive to beginning a recovery support program. Pt was encouraged to contact IOP office number on the appointment card for any changes in his schedule/questions/concerns prior to appointment. Care Managment Initial Assessment Date: 05/22/2023 Patient Name: Maria De Jesus Hogan : 1965 Patient Information Source of Information: Patient Cognition/Language: WFL - Within Functional Limits Permission given to speak with patient sales and service representative/caregiver as indicated: Yes Confirmation of Payer with patient/family: Yes Payer Name: [place] Union: No Confirmation of Primary Care Physician: Confirmed PCP Name: Dr. Rasheed Seen in last 2 years?: Yes Primary Caregiver: Self If assistance needed, confirmed caregiver ready, willing and able to care for patient at discharge: Yes Confirmed with: spouse June Living Arrangements Current Residence: House Number of Floors 2 Number of Entry Steps: 2 (flight to master bed and bath) Bed/Bath Levels: Facility: (N/A) Facility Name: N/A Plan to Return: Yes Lives with: Spouse/significant other Support Systems: Spouse/significant other Activities of Daily Living Ambulation: Independent Bathing/Dressing: Independent Elimination/Continence/Toileting: Independent Feeding: Independent Who Assists with Activities of Daily Living: self Instrumental Activities of Daily Living Prescription Coverage: Yes [facility]acy Used: [facility] Medication Management: Independent Transportation/Shopping: Independent Transportation Mode: Car Needs Assistance with Transportation at Discharge: No (spouse to transport) Meal Preparation: Independent Laundry/Cleaning: Independent Finances/Bill Paying: Communication: Independent Types of Care Services/Equipment Utilized Care Services: (None) Dialysis Type: NA Durable Medical Equipment: DME Provider: no needs Patient's Goal/Discharge Plan Patient expects to be discharged to: home w spouse no needs Discharge Planning Actions: No needs identified Patient's Choice Rights and [employer] and Collaborative Relationships Disclosed as Indicated for Post-Acute Care: NA Interdisciplinary Team Engagement: Social Work Referral for: Additional Information: Pt presented with etoh withdrawal. Addiction med following Drug Screen positive for ethyl only this admission Iv [id number] q 4 hrs with lorazepam CIWA 3 per bedside RN. VSS IA completed with pt this am Introduced self and role. Pt is not employed Independent and resides with spouse in two story home flight to master b/b. Uses no DME Verified insurance and pharmacy as per [employer]. DCP home no needs when clinically cleared for dc. Tcc to follow. Ori Bone RN documented in this encounter [facility] 05-23-2023 Nurse Note Patient is stating that patient is leaving AMA this afternoon, since he is not going to be discharged. Patient states that patient needs to go home, there are multiple things that he needs to take care, it can't wait. Patient also stated that patient did not want to know that patient was leaving AMA. I instructed patient that this was going to be a really tough day. I instructed patient that he needs to stay another day. He is at a crossroads today. Patient states that he is fine, I just have lots of energy. I instructed patient that the fact that you are hiding this AMA from your is a huge red flag and warning sign. Patient continues to say that he will be just fine. Patient asked me to just go through the motions when she gets here. I told patient that I would not falsify information. Patient stated that he would then not have his come to the floor to pick him up. I instructed patient that the addiction is trying to tell his mind what to do today and not to let it. Patient states that is not the case. I also reminded patient that he would not be able to participate in the IOP program per Dr. Rodriguez due to AMA. Patient verbalized understanding. Patient continues to walk around unit at a very fast pace, multiple times an hour. [facility] 05-23-2023 History of Present illness Narrative Images from the original note were not included. Addiction Medicine Patient: Maria De Jesus Hogan Admit Date: 05/20/2023 Primary Care Physician: Lynda Rasheed MD History of Present Illness The patient continues to be monitored by chemical dependency services. As of this morning the patient was receiving phenobarbital 100 mg IV every 4 hours for alcohol withdrawal syndrome. He was also on lorazepam on a as needed basis. In reviewing the records, he did receive 1 mg of lorazepam today 27 hours this morning. Social History Socioeconomic History Marital status: Spouse name: Not on file Number of children: Not on file Years of education: Not on file Highest education level: Not on file Occupational History Not on file Tobacco Use Smoking status: Every Day Packs/day: 2 Types: Cigarettes Start date: 10/10/1985 Smokeless tobacco: Never Vaping Use Vaping Use: Never used Substance and Sexual Activity Alcohol use: Yes Comment: Detox home for a week 0 drinks 02/17/23 Drug use: No Sexual activity: Yes Partners: Female control/protection: Other Comment: live with Other Topics Concern Not on file Social History Narrative Not on file Social Determinants of Health Financial Resource Strain: Low Risk (02/09/2023) Overall Financial Resource Strain (CARDIA) Difficulty of Paying Living Expenses: Not very hard Food Insecurity: No Food Insecurity (02/09/2023) Hunger Vital Sign Worried About Running Out of Food in the Last Year: Never true Ran Out of Food in the Last Year: Never true Transportation Needs: No Transportation Needs (05/21/2023) PRAPARE - Transportation Lack of Transportation (Medical): No Lack of Transportation (Non-Medical): No Physical Activity: Inactive (02/09/2023) Exercise Vital Sign Days of Exercise per Week: 0 days Minutes of Exercise per Session: 0 min Stress: Stress Concern Present (02/09/2023) [place] [employer] - Occupational Stress Questionnaire Feeling of Stress : Very much Social Connections: Moderately Isolated (02/09/2023) Social Connection and Isolation Panel [NHANES] Frequency of Communication with Friends and Family: More than three times a week Frequency of Social Gatherings with Friends and Family: More than three times a week Attends Synagogue Services: Never Active Member of Clubs or Organizations: No Attends Club or Organization Meetings: Never Marital Status: Intimate Partner Violence: Not At Risk (05/21/2023) Humiliation, Afraid, Rape, and Kick questionnaire Fear of Current or Ex-Partner: No Emotionally Abused: No Physically Abused: No Sexually Abused: No Housing Stability: Unknown (05/21/2023) Housing Stability Vital Sign Unable to Pay for Housing in the Last Year: No Number of Places Lived in the Last Year: Not on file Unstable Housing in the Last Year: No Past Medical History: Diagnosis Date Alcohol abuse Alcohol dependence with withdrawal (HCC) 08/31/2019 Alcohol intoxication without use disorder, uncomplicated (HCC) 10/01/2019 Alcohol use disorder 09/10/2022 Alcohol withdrawal syndrome with complication (HCC) 09/27/2021 Alcohol withdrawal, uncomplicated (HCC) 08/31/2019 Alcohol withdrawal, with unspecified complication (HCC) 10/02/2019 Alcohol withdrawal, with unspecified complication (HCC) 10/02/2019 Alcoholism (CMS/HCC) (HCC) Anxiety Arthritis Maria De Jesus Cerebral artery occlusion with cerebral infarction (HCC) Cerebrovascular disease Depression GERD (gastroesophageal reflux disease) Maria De Jesus Hypertension Insomnia Past Surgical History: Procedure Laterality Date COLONOSCOPY 06/10/2020 EGD/Dr Madison/AMANDA CYST REMOVAL face EGD (HISTORICAL) 07/23/2022 Dr. Estrella-[facility] SMALL INTESTINE SURGERY UPPER GASTROINTESTINAL ENDOSCOPY 09/27/2021 normal WISDOM TOOTH EXTRACTION Family History Problem Relation Name Age of Onset Depression Sister Maria De Jesus Hogan Other ([id number]) Sister Maria De Jesus Hogan agoraphobia Arthritis Sister Maria De Jesus Hogan Cancer Mother Maria De Jesus Hogan colon rectal cancer; dx after age 50 Other ([id number]) Mother Maria De Jesus Hogan alcoholism Alcohol abuse Mother Maria De Jesus Hogan Stroke Mother Maria De Jesus Hogan Other ([id number]) Father Maria De Jesus Hogan h/o rheumatic fever, cardiac arrest due to bee sting Hypertension Father Maria De Jesus Hogan Labs No results found for this or any previous visit (from the past 48 hour(s)). Medications Home Meds: Prior to Admission medications Medication Sig Start Date End Date Taking? Authorizing Provider albuterol 108 (90 Base) MCG/ACT inhaler Inhale 2 puffs every 6 hours as needed for wheezing or shortness of breath. 04/24/23 Lynda Rasheed MD calcipotriene (Dovonex) 0.005 % cream Apply topically 2 times daily. 09/25/22 Lynda Rasheed MD clobetasol (Temovate) 0.05 % cream Apply topically 2 times daily. 09/25/22 05/23/23 Lynda Rasheed MD gabapentin (Neurontin) 600 MG tablet Take 1 tablet (600 mg) by mouth 3 times daily. 04/24/23 Lynda Rasheed MD melatonin 5 MG tablet Take 1 tablet (5 mg) by mouth Nightly. 04/24/23 Lynda Rasheed MD Multiple Vitamins tablet Take 1 tablet by mouth daily. 04/24/23 Lynda Rasheed MD nicotine (Nicoderm, Step 2) 14 MG/24HR patch Place 1 patch on the skin daily. Do not start before October 23, 2022. 10/23/22 Robyn Edmond APRN - WAITSTAFF CAPTAIN nicotine polacrilex (Commit) 2 MG lozenge Dissolve 1 lozenge (2 mg) in the mouth every 2 hours as needed for smoking cessation (nicotine craving, urge to smoke). 04/24/23 Lynda Rasheed MD pantoprazole (ProtoNix) 40 MG EC tablet Take 1 tablet (40 mg) by mouth every morning (before breakfast). 09/25/22 Lynda Rasheed MD Thiamine Mononitrate (Vitamin B1) 100 MG tablet Take 1 tablet (100 mg) by mouth daily. 12/10/22 Lynda Rasheed MD Inpatient Scheduled Meds: calcipotriene, , Topical, BID clobetasol, , Topical, BID enoxaparin, 40 mg, SubCUTAneous, Daily folic acid, 1 mg, Oral, Daily gabapentin, 600 mg, Oral, TID pantoprazole, 40 mg, Oral, qAM AC PHENobarbital, 100 mg, IntraVENous, Q4H thiamine, 100 mg, Oral, Daily Inpatient PRN Meds: PRN medications: acetaminophen OR acetaminophen, albuterol, LORazepam OR LORazepam OR LORazepam OR LORazepam OR LORazepam OR LORazepam OR LORazepam OR LORazepam, Melatonin, nicotine OR nicotine OR nicotine OR nicotine polacrilex, ondansetron ODT OR ondansetron, polyethylene glycol (PEG) 3350 Exam Vitals: 05/22/23 0800 05/22/23 2039 05/22/23 2229 05/23/23 0800 BP: (!) 172/105 (!) 155/107 116/85 136/96 BP Location: Right arm Right arm Left arm Right arm Patient Position: Lying Lying Lying Sitting Pulse: 103 111 (!) 121 108 Resp: 18 16 14 Temp: 36.1 C (97 F) 36.7 C (98 F) 36.7 C (98 F) TempSrc: Temporal Temporal Temporal SpO2: 93% 95% Weight: Height: Physical Exam Patient resting in bed. He is slightly flushed, diaphoretic. Moderate tremors noted. Oriented x 4 somewhat restless, ill at ease. No auditory, tactile or visual disturbances. Patient stated that he intends to leave the hospital today. I communicated to the patient that I did not feel that he was safely detoxified and that he still needed to be in the hospital to assure that he completed the withdrawal safely. Assessment & Plan At this point in time patient appears intent on leaving, my recommendation is that he be signed out AGAINST MEDICAL ADVICE since he has not completed detoxification. He understands that since he did not safely complete detoxification, he would not be eligible for our intensive outpatient program. Case discussed with nurse practitioner and nursing team. BRYAN RODRIGUEZ MD Addiction Medicine 05/23/2023 at 11:24 AM --50-- minutes were spent reviewing the patient's records, evaluating the patient, entering orders, coordinating care with the treatment team, and creating a progress note. Narrative portions of the note are written utilizing [employer] software. While every effort is made to dictate clearly and proofread, errors in the dictation may still occur. If there are any questions regarding the dictation please do not hesitate to contact the author. Images from the original note were not included. Hospitalist Progress Note 05/23/2023 Subjective: Admit Date: 05/20/2023 PCP: Lynda Rasheed MD Room#: B1-148/B1-148 A Brief Hospital course: Maria De Jesus Hogan is a 57 y.o. who presents to the emergency department with chief complaint of needing detox. Patient drinks heavily daily. He also notes he had nausea and vomiting for last month that is new he has had episodes of this in the past but is making it difficult to actually drink. No fevers diarrhea chest pain as well as shortness of breath but he smokes and is never been formally diagnosed with COPD but feels like he may have this. Interval History: Patient seen in his room. The patient remains somewhat hyperactive and tremulous. He denies any sweats, nausea, headaches. Patient remains tachycardic. He is 72 hours into his last drink. He states he drinks 6-8 tall boys (24 ounce beers) daily. He was informed that addiction medicine does not feel he is ready for discharge from the hospital and if he leaves he will need to sign out AMA. The patient was very secretive about this with the nurse states he did not want his to know that he was signing out AMA.. Again the patient was told that if he signs out AMA he will not be able to go to outpatient treatment given he did not finish his total withdrawal protocol in the hospital. The patient remains recalcitrant to staying in the hospital for further treatment and therefore will likely sign out AMA later today. The patient has no other complaints. No overnight issues. Case and plan discussed with patient and bedside nurse. All questions answered. Adult diet Regular 24HR INTAKE/OUTPUT: Intake/Output Summary (Last 24 hours) at 05/23/2023 0559 Last data filed at 05/22/2023 0700 Gross per 24 hour Intake 500 ml Output -- Net 500 ml Past Medical History: Past Medical History: Diagnosis Date Alcohol abuse Alcohol dependence with withdrawal (HCC) 08/31/2019 Alcohol intoxication without use disorder, uncomplicated (HCC) 10/01/2019 Alcohol use disorder 09/10/2022 Alcohol withdrawal syndrome with complication (HCC) 09/27/2021 Alcohol withdrawal, uncomplicated (HCC) 08/31/2019 Alcohol withdrawal, with unspecified complication (HCC) 10/02/2019 Alcohol withdrawal, with unspecified complication (HCC) 10/02/2019 Alcoholism (CMS/HCC) (HCC) Anxiety Arthritis Maria De Jesus Cerebral artery occlusion with cerebral infarction (HCC) Cerebrovascular disease Depression GERD (gastroesophageal reflux disease) Maria De Jesus Hypertension Insomnia LABS: CBC: Recent Labs 05/20/232028 WBC 5.5 RBC 4.86 HGB 16.3 HCT 47.4 MCV 97.7 RDW 14.2 PLT 199 BMP: Recent Labs 05/20/232028 NA 130* K 3.8 CL 92* CO2 21* BUN 5* CREATININE 0.60* GLUCOSE 119* CALCIUM 9.0 ANIONGAP 17* LIVER PROFILE: Recent Labs 05/20/232028 AST 123* ALT 140* BILITOT 0.6 ALKPHOS 104 PROT 7.4 PT/INR: No results for input(s): PROTIME, INR in the last 72 hours. CARDIAC ENZYMES: Recent Labs 05/20/232028 TROPONINI <0.012 Procalcitonin: No results found for: PROCAL COVID-19 PCR: No results for input(s): COVID19 in the last 72 hours. Objective: Vitals: BP 116/85 (BP Location: Left arm, Patient Position: Lying) Pulse (!) 121 Temp 36.7 C (98 F) (Temporal) Resp 16 Ht 5' 10 (1.778 m) Wt 199 lb (90.3 kg) SpO2 95% BMI 28.55 kg/m Pulse Ox: SpO2 Av % Min: 93 % Max: 95 % Supplemental O2: O2 Flow Rate (L/min): 6 L/min Physical Exam Constitutional: Appearance: He is obese. Cardiovascular: Rate and Rhythm: Regular rhythm. Tachycardia present. Heart sounds: Normal heart sounds. Pulmonary: Breath sounds: Normal breath sounds. Abdominal: General: Bowel sounds are normal. Palpations: Abdomen is soft. Musculoskeletal: General: No swelling. Normal range of motion. Skin: General: Skin is warm and dry. Neurological: Motor: Tremor present. Psychiatric: Attention and Perception: Attention normal. Mood and Affect: Mood is anxious. Speech: Speech normal. Behavior: Behavior is hyperactive. Behavior is cooperative. Cognition and Memory: Cognition and memory normal. Judgment: Judgment is inappropriate. Medications: calcipotriene, , Topical, BID clobetasol, , Topical, BID enoxaparin, 40 mg, SubCUTAneous, Daily folic acid, 1 mg, Oral, Daily gabapentin, 600 mg, Oral, TID pantoprazole, 40 mg, Oral, qAM AC PHENobarbital, 100 mg, IntraVENous, Q4H thiamine, 100 mg, Oral, Daily Assessment Data: (CAT1) Reviewed 2 notes from different specialty or health system (each=1). (CAT1) Reviewed 2 labs/studies ordered by another provider not previously counted (each=1, panels count as 1). (CAT3) Discussed with Dr. Michelle regarding WD symptoms interpretation, in summary: Pt remains in active WD and should not be Dc'd. If pt signs out AMA he will not be eligible for OP treatment. This was relayed to the pt (LOW: 2x CAT1 or independent historian MOD: 3x CAT1 or 1x CAT3 EXTENSIVE: 3x CAT1 and 1x CAT3) Acute, acute on chronic, unstable/uncontrolled chronic problems/diagnoses: Severe alcohol use disorder- addiction medicine following, patient continues with active alcohol withdrawal symptoms Transaminitis - likely 2/2 alcohol use, continue to monitor hepatic function Stable chronic problems affecting care, new non-acute diagnoses: Tobacco use- nicotine replacement Plan As a result of the above findings & factors, the following mgmt was pursued: - am labs, replace lytes prn - PT/OT/CM/SW - delirium precautions: increase activity and limit nighttime disturbances - DVT prophylaxis: encourage ambulation and pharmacologic DVT treatment with held secondary to elevated LFTs as well as alcohol use Complexity: Chronic illness with severe exacerbation, progression, or side effect of tx (HIGH). Risk: Care and management is being impacted by the following SDOH: Refusing adequate withdrawal treatment (MOD). Advance Directive: Full Code Anticipated Discharge - Date -to be determined - Location - Home - Pending the following -improvement in withdrawal symptoms Total time spent (which include face to face and non face to face encounters) : 40 minutes Toxic drug monitoring/narrow therapeutic index drug monitoring : # Drug name : Phenobarbital # Route administered : IV # Method of monitoring : Mentation Extended Emergency Contact Information Primary Emergency Contact: [place],April Mobile Relation: Spouse JUAN CLAUDIO CNP Division of Hospitalist Medicine [facility] Comment: Please note this report has been produced using speech recognition software and may contain errors related to that system including errors in grammar, punctuation, and spelling, as well as words and phrases that may be inappropriate. If there is any questions or concerns please feel free to contact the dictating provider for clarification Images from the original note were not included. Addiction Medicine Patient: Maria De Jesus Hogan Admit Date: 05/20/2023 Primary Care Physician: Lynda Rasheed MD History of Present Illness The patient continues to be monitored by chemical dependency services. As of this morning the patient was receiving phenobarbital 97.2 mg every 4 hours for alcohol withdrawal syndrome. In meeting with the patient today, he stated that he felt much better in reference to withdrawal symptomatology. Anxiety, sweats, tremors, restlessness significantly improved. Social History Socioeconomic History Marital status: Spouse name: Not on file Number of children: Not on file Years of education: Not on file Highest education level: Not on file Occupational History Not on file Tobacco Use Smoking status: Every Day Packs/day: 2 Types: Cigarettes Start date: 10/10/1985 Smokeless tobacco: Never Vaping Use Vaping Use: Never used Substance and Sexual Activity Alcohol use: Yes Comment: Detox home for a week 0 drinks 02/17/23 Drug use: No Sexual activity: Yes Partners: Female control/protection: Other Comment: live with Other Topics Concern Not on file Social History Narrative Not on file Social Determinants of Health Financial Resource Strain: Low Risk (02/09/2023) Overall Financial Resource Strain (CARDIA) Difficulty of Paying Living Expenses: Not very hard Food Insecurity: No Food Insecurity (02/09/2023) Hunger Vital Sign Worried About Running Out of Food in the Last Year: Never true Ran Out of Food in the Last Year: Never true Transportation Needs: No Transportation Needs (05/21/2023) PRAPARE - Transportation Lack of Transportation (Medical): No Lack of Transportation (Non-Medical): No Physical Activity: Inactive (02/09/2023) Exercise Vital Sign Days of Exercise per Week: 0 days Minutes of Exercise per Session: 0 min Stress: Stress Concern Present (02/09/2023) [place] [employer] - Occupational Stress Questionnaire Feeling of Stress : Very much Social Connections: Moderately Isolated (02/09/2023) Social Connection and Isolation Panel [NHANES] Frequency of Communication with Friends and Family: More than three times a week Frequency of Social Gatherings with Friends and Family: More than three times a week Attends Synagogue Services: Never Active Member of Clubs or Organizations: No Attends Club or Organization Meetings: Never Marital Status: Intimate Partner Violence: Not At Risk (05/21/2023) Humiliation, Afraid, Rape, and Kick questionnaire Fear of Current or Ex-Partner: No Emotionally Abused: No Physically Abused: No Sexually Abused: No Housing Stability: Unknown (05/21/2023) Housing Stability Vital Sign Unable to Pay for Housing in the Last Year: No Number of Places Lived in the Last Year: Not on file Unstable Housing in the Last Year: No Past Medical History: Diagnosis Date Alcohol abuse Alcohol dependence with withdrawal (HCC) 08/31/2019 Alcohol intoxication without use disorder, uncomplicated (HCC) 10/01/2019 Alcohol use disorder 09/10/2022 Alcohol withdrawal syndrome with complication (HCC) 09/27/2021 Alcohol withdrawal, uncomplicated (HCC) 08/31/2019 Alcohol withdrawal, with unspecified complication (HCC) 10/02/2019 Alcohol withdrawal, with unspecified complication (HCC) 10/02/2019 Alcoholism (CMS/HCC) (HCC) Anxiety Arthritis Maria De Jeuss Cerebral artery occlusion with cerebral infarction (HCC) Cerebrovascular disease Depression GERD (gastroesophageal reflux disease) Maria De Jesus Hypertension Insomnia Past Surgical History: Procedure Laterality Date COLONOSCOPY 06/10/2020 EGD/Dr Madison/[facility] CYST REMOVAL face EGD (HISTORICAL) 07/23/2022 Dr. Estrella-[facility] SMALL INTESTINE SURGERY UPPER GASTROINTESTINAL ENDOSCOPY 09/27/2021 normal WISDOM TOOTH EXTRACTION Family History Problem Relation Name Age of Onset Depression Sister Maria De Jesus Hogan Other ([id number]) Sister Maria De Jesus Hogan agoraphobia Arthritis Sister Maria De Jesus Hogan Cancer Mother Maria De Jesus Hogan colon rectal cancer; dx after age 50 Other ([id number]) Mother Maria De Jesus Hogan alcoholism Alcohol abuse Mother Maria De Jesus Hogan Stroke Mother Maria De Jesus Hogan Other ([id number]) Father Maria De Jesus Hogan h/o rheumatic fever, cardiac arrest due to bee sting Hypertension Father Maria De Jesus Hogan Labs Recent Results (from the past 48 hour(s)) CBC auto differential Collection Time: 05/20/23 8:29 PM Result Value Ref Range Auto WBC 5.5 3.6 - 10.7 10*3/uL RBC 4.86 4.40 - 5.90 10*6/uL Hemoglobin 16.3 13.0 - 18.0 g/dL Hematocrit 47.4 40.0 - 52.0 % MCV 97.7 80.0 - 98.0 fL MCH 33.6 26.0 - 34.0 pg MCHC 34.4 32.0 - 36.0 % RDW 14.2 11.5 - 14.5 % Platelets 199 140 - 440 10*3/uL MPV 7.0 (L) 7.4 - 12.4 fL nRBC 0.1 0.0 - 2.0 /100 WBCs Neutrophils Relative 56.4 40.0 - 80.0 % Lymphocytes Relative 26.0 20.0 - 40.0 % Monocytes Relative 15.2 (H) 2.0 - 10.0 % Eosinophils Relative 1.1 1.0 - 6.0 % Basophils Relative 1.3 0.0 - 2.0 % Neutrophils Absolute 3.1 1.8 - 7.0 10*3/uL Lymphocytes Absolute 1.4 1.0 - 4.3 10*3/uL Monocytes Absolute 0.8 0.0 - 0.8 10*3/uL Eosinophils Absolute 0.1 0.0 - 0.5 10*3/uL Basophils Absolute 0.1 0.0 - 0.2 10*3/uL Comprehensive metabolic panel Collection Time: 05/20/23 8:29 PM Result Value Ref Range SODIUM 130 (L) 135 - 145 mmol/L POTASSIUM 3.8 3.5 - 5.1 mmol/L CHLORIDE 92 (L) 98 - 107 mmol/L CARBON DIOXIDE 21 (L) 22 - 30 mmol/L ANION GAP 17 (H) 3 - 13 mmol/L UREA NITROGEN 5 (L) 9 - 20 mg/dL CREATININE 0.60 (L) 0.66 - 1.25 mg/dL GLUCOSE 119 (H) 70 - 100 mg/dL CALCIUM 9.0 8.4 - 10.4 mg/dL AST (SGOT) 123 (H) 15 - 46 U/L ALT 140 (H) 0 - 49 U/L ALKALINE PHOSPHATASE 104 38 - 126 U/L ALBUMIN 4.2 3.5 - 5.0 g/dL BILIRUBIN, TOTAL 0.6 0.2 - 1.3 mg/dL TOTAL PROTEIN 7.4 6.3 - 8.2 g/dL eGFR >90.0 >60.0 mL/min/1.73m*2 Lipase Collection Time: 05/20/23 8:29 PM Result Value Ref Range LIPASE 230 23 - 300 U/L Troponin - One Time order ONLY Collection Time: 05/20/23 8:29 PM Result Value Ref Range TROPONIN I <0.012 <0.034 ng/mL ECG 12 lead Collection Time: 05/20/23 8:31 PM Result Value Ref Range Heart Rate 97 bpm QRSD Interval 105 ms QT Interval 381 ms QTC Interval 484 ms P [place] 78 degrees QRS [place] 75 degrees T Wave [place] 60 degrees VA Interval 154 ms POCT venous blood gas Collection Time: 05/20/23 9:56 PM Result Value Ref Range pH, Venous 7.333 7.330 - 7.430 pH pCO2, Venous 48.3 40 - 55 mm Hg pO2, Venous 53.3 mm Hg HCO3, Venous 25.6 23.0 - 27.0 mmol/L Base Excess, Venous -1.0 -3 - 3 mmol/L SO2, Venous 84.6 % FIO2 Complete Urinalysis Collection Time: 05/20/23 10:18 PM Result Value Ref Range Color, Urine Colorless Lt. Yellow Clarity, Urine Clear Clear pH, Urine 5.5 5.0 - 8.0 pH Leukocytes, Urine Negative Negative Estefani/uL Nitrite, Urine Negative Negative Protein, Urine Negative Negative mg/dL Glucose, Urine Normal Normal (<70) mg/dL Bilirubin, Urine Negative Negative mg/dL Ketones, Urine Negative Negative mg/dL Urobilinogen, Urine Normal Normal (0-1) mg/dL Blood, Urine Negative Negative mg/dL SPECIFIC GRAVITY OF URINE (NUMERIC) 1.003 (L) 1.005 - 1.030 MEDICATION ASSISTED TREATMENT PANEL Collection Time: 05/20/23 10:18 PM Result Value Ref Range AMPHETAMINES Negative Negative BARBITURATES Negative Negative BENZODIAZEPINES Negative Negative COCAINE Negative Negative METHADONE Negative Negative OPIATES Negative Negative OXYCODONE/OXYMORPHONE Negative Negative PCP Negative Negative BUPRENORPHINE SCREEN Negative Negative THC Negative Negative FENTANYL Negative Negative ETHANOL Positive Negative ETHYL GLUCURONIDE SCREEN, URINE Collection Time: 05/20/23 10:18 PM Result Value Ref Range ETHYL GLUCURONIDE, URINE Positive Negative Medications Home Meds: Prior to Admission medications Medication Sig Start Date End Date Taking? Authorizing Provider albuterol 108 (90 Base) MCG/ACT inhaler Inhale 2 puffs every 6 hours as needed for wheezing or shortness of breath. 04/24/23 Lynda Rasheed MD calcipotriene (Dovonex) 0.005 % cream Apply topically 2 times daily. 09/25/22 Lynda Rasheed MD clobetasol (Temovate) 0.05 % cream Apply topically 2 times daily. 09/25/22 05/23/23 Lynda Rasheed MD gabapentin (Neurontin) 600 MG tablet Take 1 tablet (600 mg) by mouth 3 times daily. 04/24/23 Lynda Rasheed MD melatonin 5 MG tablet Take 1 tablet (5 mg) by mouth Nightly. 04/24/23 Lynda Rasheed MD Multiple Vitamins tablet Take 1 tablet by mouth daily. 04/24/23 Lynda Rasheed MD nicotine (Nicoderm, Step 2) 14 MG/24HR patch Place 1 patch on the skin daily. Do not start before October 23, 2022. 10/23/22 Robyn Edmond, JUAN - WAITSTAFF CAPTAIN nicotine polacrilex (Commit) 2 MG lozenge Dissolve 1 lozenge (2 mg) in the mouth every 2 hours as needed for smoking cessation (nicotine craving, urge to smoke). 04/24/23 Lynda Rasheed MD pantoprazole (ProtoNix) 40 MG EC tablet Take 1 tablet (40 mg) by mouth every morning (before breakfast). 09/25/22 Lynda Rasheed MD Thiamine Mononitrate (Vitamin B1) 100 MG tablet Take 1 tablet (100 mg) by mouth daily. 12/10/22 Lynda Rasheed MD Inpatient Scheduled Meds: calcipotriene, , Topical, BID clobetasol, , Topical, BID enoxaparin, 40 mg, SubCUTAneous, Daily folic acid, 1 mg, Oral, Daily gabapentin, 600 mg, Oral, TID pantoprazole, 40 mg, Oral, qAM AC PHENobarbital, 100 mg, IntraVENous, Q4H thiamine, 100 mg, Oral, Daily Inpatient PRN Meds: PRN medications: acetaminophen OR acetaminophen, albuterol, LORazepam OR LORazepam OR LORazepam OR LORazepam OR LORazepam OR LORazepam OR LORazepam OR LORazepam, Melatonin, nicotine OR nicotine OR nicotine OR nicotine polacrilex, ondansetron ODT OR ondansetron, polyethylene glycol (PEG) 3350 Exam Vitals: 05/21/23 1941 05/21/23 2357 05/22/23 0408 05/22/23 0800 BP: 121/79 120/82 127/89 (!) 172/105 BP Location: Left arm Left arm Left arm Right arm Patient Position: Lying Lying Lying Lying Pulse: 119 107 96 103 Resp: 16 16 16 18 Temp: 37.2 C (99 F) 36.9 C (98.5 F) 36.4 C (97.6 F) 36.1 C (97 F) TempSrc: Temporal Temporal Temporal Temporal SpO2: 92% 90% 92% 93% Weight: Height: Physical Exam Patient resting comfortably in bed. He is not flushed or diaphoretic. Moderate tremors persist. Oriented x 4. No auditory, tactile or visual disturbances. Assessment & Plan At this point in time we will continue phenobarbital as ordered and will reassess on May 22. I have contacted the outpatient program to have one of the counselors meet with the patient ,to make the necessary arrangements for him to enter the IOP program. BRYAN RODRIGUEZ MD Addiction Medicine 05/22/2023 at 11:15 AM ---50- minutes were spent reviewing the patient's records, evaluating the patient, entering orders, coordinating care with the treatment team, and creating a progress note. Narrative portions of the note are written utilizing [employer] software. While every effort is made to dictate clearly and proofread, errors in the dictation may still occur. If there are any questions regarding the dictation please do not hesitate to contact the author. Images from the original note were not included. Hospitalist Progress Note 05/22/2023 Subjective: Admit Date: 05/20/2023 PCP: Lynda Rasheed MD Room#: B1-148/B1-148 A Brief Hospital course: Maria De Jesus Hogan is a 57 y.o. who presents to the emergency department with chief complaint of needing detox. Patient drinks heavily daily. He also notes he had nausea and vomiting for last month that is new he has had episodes of this in the past but is making it difficult to actually drink. No fevers diarrhea chest pain as well as shortness of breath but he smokes and is never been formally diagnosed with COPD but feels like he may have this. Interval History: No overnight issues.He is pleasant , sitting on bed in no distress. He denies any nausea, vomiting or active withdrawal symptoms . Case and plan discussed with patient and bedside nurse. All questions answered. Adult diet Regular 24HR INTAKE/OUTPUT: Intake/Output Summary (Last 24 hours) at 05/22/2023 0920 Last data filed at 05/22/2023 0700 Gross per 24 hour Intake 500 ml Output -- Net 500 ml Past Medical History: Past Medical History: Diagnosis Date Alcohol abuse Alcohol dependence with withdrawal (HCC) 08/31/2019 Alcohol intoxication without use disorder, uncomplicated (HCC) 10/01/2019 Alcohol use disorder 09/10/2022 Alcohol withdrawal syndrome with complication (HCC) 09/27/2021 Alcohol withdrawal, uncomplicated (HCC) 08/31/2019 Alcohol withdrawal, with unspecified complication (HCC) 10/02/2019 Alcohol withdrawal, with unspecified complication (HCC) 10/02/2019 Alcoholism (CMS/HCC) (HCC) Anxiety Arthritis Maria De Jesus Cerebral artery occlusion with cerebral infarction (HCC) Cerebrovascular disease Depression GERD (gastroesophageal reflux disease) Maria De Jesus Hypertension Insomnia LABS: CBC: Recent Labs 05/20/232028 WBC 5.5 RBC 4.86 HGB 16.3 HCT 47.4 MCV 97.7 RDW 14.2 PLT 199 BMP: Recent Labs 05/20/232028 NA 130* K 3.8 CL 92* CO2 21* BUN 5* CREATININE 0.60* GLUCOSE 119* CALCIUM 9.0 ANIONGAP 17* LIVER PROFILE: Recent Labs 05/20/232028 AST 123* ALT 140* BILITOT 0.6 ALKPHOS 104 PROT 7.4 PT/INR: No results for input(s): PROTIME, INR in the last 72 hours. CARDIAC ENZYMES: Recent Labs 05/20/232028 TROPONINI <0.012 Procalcitonin: No results found for: PROCAL COVID-19 PCR: No results for input(s): COVID19 in the last 72 hours. Objective: Vitals: BP (!) 172/105 (BP Location: Right arm, Patient Position: Lying) Pulse 103 Temp 36.1 C (97 F) (Temporal) Resp 18 Ht 5' 10 (1.778 m) Wt 199 lb (90.3 kg) SpO2 93% BMI 28.55 kg/m Pulse Ox: SpO2 Av % Min: 90 % Max: 97 % Supplemental O2: O2 Flow Rate (L/min): 6 L/min Physical Exam Vitals and nursing note reviewed. Constitutional: Appearance: Normal appearance. HENT: Head: Normocephalic and atraumatic. Nose: Nose normal. Mouth/Throat: Mouth: Mucous membranes are moist. Eyes: Pupils: Pupils are equal, round, and reactive to light. Cardiovascular: Rate and Rhythm: Normal rate and regular rhythm. Pulmonary: Effort: Pulmonary effort is normal. Comments: Diminished in bilateral bases Abdominal: General: Bowel sounds are normal. Palpations: Abdomen is soft. Musculoskeletal: General: Normal range of motion. Cervical back: Normal range of motion. Skin: General: Skin is warm and dry. Neurological: General: No focal deficit present. Mental Status: He is alert and oriented to person, place, and time. Psychiatric: Mood and Affect: Mood normal. Behavior: Behavior normal. Medications: calcipotriene, , Topical, BID clobetasol, , Topical, BID enoxaparin, 40 mg, SubCUTAneous, Daily folic acid, 1 mg, Oral, Daily gabapentin, 600 mg, Oral, TID pantoprazole, 40 mg, Oral, qAM AC PHENobarbital, 100 mg, IntraVENous, Q4H thiamine, 100 mg, Oral, Daily Assessment Data: (CAT1) Reviewed 1 notes from different specialty or health system (each=1). (CAT1) Reviewed 2 labs/studies previously ordered by me not previously counted (each=1, panels count as 1). (CAT1) Ordered 2 new labs and/or studies (each=1, panels count as 1). (LOW: 2x CAT1 or independent historian MOD: 3x CAT1 or 1x CAT3 EXTENSIVE: 3x CAT1 and 1x CAT3) Acute, acute on chronic, unstable/uncontrolled chronic problems/diagnoses: Severe alcohol use disorder- addiction medicine following, denies current withdrawal symptoms Transaminitis - likely 2/2 alcohol use, continue to monitor hepatic function Stable chronic problems affecting care, new non-acute diagnoses: Tobacco use- nicotine replacement Plan As a result of the above findings & factors, the following mgmt was pursued: - - am labs, replace lytes prn - PT/OT/CM/SW - delirium precautions: increase activity and limit nighttime disturbances - DVT prophylaxis: enoxaparin and encourage ambulation Complexity: Acute, uncomplicated illness or injury (LOW). Risk: Prescription drug/IVF/colloid was initiated, discontinued, adjusted; or reviewed with decision to maintain current orders (MOD). Low risk diagnostic testing or treatment (LOW). Advance Directive: Full Code Anticipated Discharge - Date - likely over the next 48 hours - Location - Home - Pending the following - clearance from addiction medicine Total time spent (which include face to face and non face to face encounters) : minutes Toxic drug monitoring/narrow therapeutic index drug monitoring : # Drug name : # Route administered : # Method of monitoring : Extended Emergency Contact Information Primary Emergency Contact: Mobile Relation: Spouse EDA BERRY APRN - WAITSTAFF CAPTAIN Division of Hospitalist Medicine [facility] Nutrition rescreen completed. Chart reviewed. Patient to be monitored and followed by the diet optical laboratory technician. Hospitalist Progress Note 05/21/2023 9:01 AM [phone]: Please reach me on Meet You Secure Chat for patient care issues. [phone]: Please page [facility] night Hospitalist for any issues. Subjective: Admit Date: 05/20/2023 PCP: Lynda Rasheed MD Room#: 03/12 Follow up on patient admitted after midnight. Patient admitted for: Alcohol detox- patient seen in ED , resting comfortably on cot, orders reviewed Past Medical History: Severe alcohols use disorder, Tobacco use, Lombardo's esophagus , depression, anxiety, Transaminitis All labs, diagnostic studies, imaging, and progress notes reviewed. JUAN ANAYA CNP Division of Hospitalist Medicine [facility] Comment: Please note this report has been produced using speech recognition software and may contain errors related to that system including errors in grammar, punctuation, and spelling, as well as words and phrases that may be inappropriate. If there is any questions or concerns please feel free to contact the dictating provider for clarification documented in this encounter [facility] 05-22-2023 Note Formatting of this n ote might be different from the original. Outpatient Behavioral Health Services Case Management/Care Coordination Note Date of Contact: 05/22/23 Start Time: 4:20 PM End Time: 4:25 PM Duration: 5 mins Type of Contact: [id number] Patient's Identified Case Management/Care Coordination Need(s) addressed (select all that apply): Recovery Support Summary of Contact/Need at This Time: Setting an appointment for initial evaluation for Intensive Outpatient Program Case Management Plan/Intervention: (select all that apply) Follow-Up Description of Case Management Plan/Intervention: Pt was given an appointment card for 06/06/23 at 1:30 PM for an IOP evaluation. Note Any Anticipated Barriers: N/A Patient's response to Plan/Intervention (or, if applicable, outcome of Case Management collateral contact/referral): Pt was receptive to following through with evaluation appointment. Progress Towards Case Management Goal(s): [] None [] Minimal [] Moderate [] Significant [x] Case Management Goal(s) Met Additional Comments: Pt stated he was familiar with IOP services at another location and was receptive to beginning a recovery support program. Pt was encouraged to contact IOP office number on the appointment card for any changes in his schedule/questions/concerns prior to appointment. [facility] [employer] 05-22-2023 Note Formatting of this n ote might be different from the original. Outpatient Behavioral Health Services Case Management/Care Coordination Note Date of Contact: 05/22/23 Start Time: 4:20 PM End Time: 4:25 PM Duration: 5 mins Type of Contact: Juja-wz-Rqda Patient's Identified Case Management/Care Coordination Need(s) addressed (select all that apply): Recovery Support Summary of Contact/Need at This Time: Setting an appointment for initial evaluation for Intensive Outpatient Program Case Management Plan/Intervention: (select all that apply) Follow-Up Description of Case Management Plan/Intervention: Pt was given an appointment card for 06/06/23 at 1:30 PM for an IOP evaluation. Note Any Anticipated Barriers: N/A Patient's response to Plan/Intervention (or, if applicable, outcome of Case Management collateral contact/referral): Pt was receptive to following through with evaluation appointment. Progress Towards Case Management Goal(s): [] None [] Minimal [] Moderate [] Significant [x] Case Management Goal(s) Met Additional Comments: Pt stated he was familiar with IOP services at another location and was receptive to beginning a recovery support program. Pt was encouraged to contact IOP office number on the appointment card for any changes in his schedule/questions/concerns prior to appointment. [facility] [employer] 05-22-2023 Note Formatting of this n ote might be different from the original. Care Managment Initial Assessment Date: 05/22/2023 Patient Name: Maria De Jesus Hogan : 1965 Patient Information Source of Information: Patient Cognition/Language: WFL - Within Functional Limits Permission given to speak with patient sales and service representative/caregiver as indicated: Yes Confirmation of Payer with patient/family: Yes Payer Name: [place] Medicaid : No Confirmation of Primary Care Physician: Confirmed PCP Name: Dr. Rasheed Seen in last 2 years?: Yes Primary Caregiver: Self If assistance needed, confirmed caregiver ready, willing and able to care for patient at discharge: Yes Confirmed with: spouse June Living Arrangements Current Residence: House Number of Floors 2 Number of Entry Steps: 2 (flight to master bed and bath) Bed/Bath Levels: Facility: (N/A) Facility Name: N/A Plan to Return: Yes Lives with: Spouse/significant other Support Systems: Spouse/significant other Activities of Daily Living Ambulation: Independent Bathing/Dressing: Independent Elimination/Continence/Toileting: Independent Feeding: Independent Who Assists with Activities of Daily Living: self Instrumental Activities of Daily Living Prescription Coverage: Yes [facility]acy Used[facility] Medication Management: Independent Transportation/Shopping: Independent Transportation Mode: Car Needs Assistance with Transportation at Discharge: No (spouse to transport) Meal Preparation: Independent Laundry/Cleaning: Independent Finances/Bill Paying: Communication: Independent Types of Care Services/Equipment Utilized Care Services: (None) Dialysis Type: NA Durable Medical Equipment: DME Provider: no needs Patient's Goal/Discharge Plan Patient expects to be discharged to: home w spouse no needs Discharge Planning Actions: No needs identified Patient's Choice Rights and [employer] and Collaborative Relationships Disclosed as Indicated for Post-Acute Care: NA Interdisciplinary Team Engagement: Social Work Referral for: Additional Information: Pt presented with etoh withdrawal. Addiction med following Drug Screen positive for ethyl only this admission Iv [id number] q 4 hrs with lorazepam CIWA 3 per bedside RN. VSS IA completed with pt this am Introduced self and role. Pt is not employed Independent and resides with spouse in two story home flight to master b/b. Uses no DME Verified insurance and pharmacy as per [employer]. DCP home no needs when clinically cleared for dc. Tcc to follow. Ori Bone RN [facility] 05-22-2023 Note Formatting of this n ote might be different from the original. Care Managment Initial Assessment Date: 05/22/2023 Patient Name: Maria De Jesus Hogan : 1965 Patient Information Source of Information: Patient Cognition/Language: WFL - Within Functional Limits Permission given to speak with patient sales and service representative/caregiver as indicated: Yes Confirmation of Payer with patient/family: Yes Payer Name: [place] Medicaid : No Confirmation of Primary Care Physician: Confirmed PCP Name: Dr. Rasheed Seen in last 2 years?: Yes Primary Caregiver: Self If assistance needed, confirmed caregiver ready, willing and able to care for patient at discharge: Yes Confirmed with: spouse June Living Arrangements Current Residence: House Number of Floors 2 Number of Entry Steps: 2 (flight to master bed and bath) Bed/Bath Levels: Facility: (N/A) Facility Name: N/A Plan to Return: Yes Lives with: Spouse/significant other Support Systems: Spouse/significant other Activities of Daily Living Ambulation: Independent Bathing/Dressing: Independent Elimination/Continence/Toileting: Independent Feeding: Independent Who Assists with Activities of Daily Living: self Instrumental Activities of Daily Living Prescription Coverage: Yes [facility]acy Used: [facility] Medication Management: Independent Transportation/Shopping: Independent Transportation Mode: Car Needs Assistance with Transportation at Discharge: No (spouse to transport) Meal Preparation: Independent Laundry/Cleaning: Independent Finances/Bill Paying: Communication: Independent Types of Care Services/Equipment Utilized Care Services: (None) Dialysis Type: NA Durable Medical Equipment: DME Provider: no needs Patient's Goal/Discharge Plan Patient expects to be discharged to: home w spouse no needs Discharge Planning Actions: No needs identified Patient's Choice Rights and [employer] and Collaborative Relationships Disclosed as Indicated for Post-Acute Care: NA Interdisciplinary Team Engagement: Social Work Referral for: Additional Information: Pt presented with etoh withdrawal. Addiction med following Drug Screen positive for ethyl only this admission Iv [id number] q 4 hrs with lorazepam CIWA 3 per bedside RN. VSS IA completed with pt this am Introduced self and role. Pt is not employed Independent and resides with spouse in two story home flight to master b/b. Uses no DME Verified insurance and pharmacy as per [employer]. DCP home no needs when clinically cleared for dc. Tcc to follow. Ori Bone RN [facility] 05-21-2023 Emergency department Note Sleeping soundly, respirations normal. Could not awaken with calling out name and slight touch. Left resources regarding addiction peer support at bedside with note. Candy Pearson RN 05/21/23 1156 [facility] [employer] 05-21-2023 Emergency department Note Sleeping soundly, respirations normal. Could not awaken with calling out name and slight touch. Left resources regarding addiction peer support at bedside with note. Candy Pearson RN 05/21/23 1156 Pt upset with having all the cords and I dont need these blue things (seizure pads) educated pt on need for seizure pads due to the potential for seizures with withdrawal. RN placed another IV in hand per pt request to make the IV pump stop beeping. BP cuff removed. Estella De Dios RN 05/21/23 0814 Rounding on pt: pt states I don't know I might need some more of that medicine CIWA reassessed, pt c/o anxiety and jitteriness, slight agitation Estella De Dios RN 05/21/23 0762 Patient ordered breakfast. Alpa Middleton RN 05/21/23 0700 Seizure pads placed on patient's bed at this time. Alpa Middleton RN 05/21/23 0425 Patient told this RN that he is now feeling more jittery and anxious than before. CIWA reassessed. Alpa Middleton RN 05/21/23 0312 Patient placed on NRB while sleeping. SPO2 was dropping while asleep due to mouth breathing. Patient now at 97% Alpa Middleton RN 05/20/23 2326 [facility] [place] Judy Higgins RN 05/20/232234 Detox full per Dr Jennifer Higgins RN 05/20/232233 EMERGENCY DEPARTMENT ENCOUNTER Pt Name: Maria De Jesus Hogan Birthdate 1965 Date of evaluation: 05/20/2023 ED Provider: Scooter Luna MD CHIEF COMPLAINT Chief Complaint Patient presents with Alcohol Problem Pt. States he would like to do inpatient detox from alcohol. States he drinks 3-4 tall boys of beer per day. 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 HISTORY OF PRESENT ILLNESS (Location/Symptom, Timing/Onset, Context/Setting, Quality, Duration, Modifying Factors, Severity) Note limiting factors. I wore appropriate PPE for the entirety of this encounter. HPI Maria De Jesus Hogan is a 57 y.o. who presents to the emergency department with chief complaint of needing detox. Patient drinks heavily daily. He also notes he had nausea and vomiting for last month that is new he has had episodes of this in the past but is making it difficult to actually drink. No fevers diarrhea chest pain as well as shortness of breath but he smokes and is never been formally diagnosed with COPD but feels like he may have this. No other complaints Nursing Notes were reviewed. Limitations to history: Outside historians: REVIEW OF SYSTEMS Review of Systems Pertinent positives and negatives as per HPI. PAST MEDICAL HISTORY Past Medical History: Diagnosis Date Alcohol abuse Alcohol dependence with withdrawal (HCC) 08/31/2019 Alcohol intoxication without use disorder, uncomplicated (HCC) 10/01/2019 Alcohol use disorder 09/10/2022 Alcohol withdrawal syndrome with complication (HCC) 09/27/2021 Alcohol withdrawal, uncomplicated (HCC) 08/31/2019 Alcohol withdrawal, with unspecified complication (HCC) 10/02/2019 Alcohol withdrawal, with unspecified complication (HCC) 10/02/2019 Alcoholism (CMS/HCC) (HCC) Anxiety Arthritis Maria De Jesus Cerebral artery occlusion with cerebral infarction (HCC) Cerebrovascular disease Depression GERD (gastroesophageal reflux disease) Maria De Jesus Hypertension Insomnia SURGICAL HISTORY Past Surgical History: Procedure Laterality Date COLONOSCOPY 06/10/2020 EGD/Dr Madison/[facility] REMOVAL face EGD (HISTORICAL) 07/23/2022 Dr. Estrella-[facility] SMALL INTESTINE SURGERY UPPER GASTROINTESTINAL ENDOSCOPY 09/27/2021 normal WISDOM TOOTH EXTRACTION CURRENT MEDICATIONS Previous Medications ALBUTEROL 108 (90 BASE) MCG/ACT INHALER Inhale 2 puffs every 6 hours as needed for wheezing or shortness of breath. CALCIPOTRIENE (DOVONEX) 0.005 % CREAM Apply topically 2 times daily. CLOBETASOL (TEMOVATE) 0.05 % CREAM Apply topically 2 times daily. GABAPENTIN (NEURONTIN) 600 MG TABLET Take 1 tablet (600 mg) by mouth 3 times daily. MELATONIN 5 MG TABLET Take 1 tablet (5 mg) by mouth Nightly. MULTIPLE VITAMINS TABLET Take 1 tablet by mouth daily. NICOTINE (NICODERM, STEP 2) 14 MG/24HR PATCH Place 1 patch on the skin daily. Do not start before October 23, 2022. NICOTINE POLACRILEX (COMMIT) 2 MG LOZENGE Dissolve 1 lozenge (2 mg) in the mouth every 2 hours as needed for smoking cessation (nicotine craving, urge to smoke). PANTOPRAZOLE (PROTONIX) 40 MG EC TABLET Take 1 tablet (40 mg) by mouth every morning (before breakfast). THIAMINE MONONITRATE (VITAMIN B1) 100 MG TABLET Take 1 tablet (100 mg) by mouth daily. ALLERGIES Bee venom, Nickel, and Tramadol FAMILY HISTORY Family History Problem Relation Name Age of Onset Depression Sister Maria De Jesus Hgoan Other ([id number]) Sister Maria De Jesus Hogan agoraphobia Arthritis Sister Maria De Jesus Hogan Cancer Mother Maria De Jesus Hogan colon rectal cancer; dx after age 50 Other ([id number]) Mother Maria De Jesus Hogan alcoholism Alcohol abuse Mother Maria De Jesus Hogan Stroke Mother Maria De Jesus Hogan Other ([id number]) Father Maria De Jesus Hogan h/o rheumatic fever, cardiac arrest due to bee sting Hypertension Father Maria De Jesus Hogan SOCIAL HISTORY Social History Socioeconomic History Marital status: Tobacco Use Smoking status: Every Day Packs/day: 2 Types: Cigarettes Start date: 10/10/1985 Smokeless tobacco: Never Vaping Use Vaping Use: Never used Substance and Sexual Activity Alcohol use: Yes Comment: Detox home for a week 0 drinks 02/17/23 Drug use: No Sexual activity: Yes Partners: Female control/protection: Other Comment: live with Social Determinants of Health Financial Resource Strain: Low Risk (02/09/2023) Overall Financial Resource Strain (CARDIA) Difficulty of Paying Living Expenses: Not very hard Food Insecurity: No Food Insecurity (02/09/2023) Hunger Vital Sign Worried About Running Out of Food in the Last Year: Never true Ran Out of Food in the Last Year: Never true Transportation Needs: No Transportation Needs (02/08/2023) PRAPARE - Transportation Lack of Transportation (Medical): No Lack of Transportation (Non-Medical): No Physical Activity: Inactive (02/09/2023) Exercise Vital Sign Days of Exercise per Week: 0 days Minutes of Exercise per Session: 0 min Stress: Stress Concern Present (02/09/2023) [place] [employer] - Occupational Stress Questionnaire Feeling of Stress : Very much Social Connections: Moderately Isolated (02/09/2023) Social Connection and Isolation Panel [NHANES] Frequency of Communication with Friends and Family: More than three times a week Frequency of Social Gatherings with Friends and Family: More than three times a week Attends Synagogue Services: Never Active Member of Clubs or Organizations: No Attends Club or Organization Meetings: Never Marital Status: Intimate Partner Violence: Not At Risk (07/22/2022) Humiliation, Afraid, Rape, and Kick questionnaire Fear of Current or Ex-Partner: No Emotionally Abused: No Physically Abused: No Sexually Abused: No Housing Stability: Unknown (02/08/2023) Housing Stability Vital Sign Unable to Pay for Housing in the Last Year: No Unstable Housing in the Last Year: No SCREENINGS PHYSICAL EXAM ED Triage Vitals [05/20/231944] Temp Heart Rate Resp BP 36.6 C (97.9 F) (!) 117 18 (!) 158/111 SpO2 Temp Source Heart Rate Source Patient Position 95 % Temporal Monitor -- BP Location FiO2 (%) -- -- Physical Exam Vitals and nursing note reviewed. Constitutional: General: He is not in acute distress. Appearance: He is well-developed. HENT: Head: Normocephalic and atraumatic. Eyes: Conjunctiva/sclera: Conjunctivae normal. Cardiovascular: Rate and Rhythm: Regular rhythm. Tachycardia present. Pulmonary: Breath sounds: Wheezing present. Abdominal: General: There is distension. Palpations: Abdomen is soft. Tenderness: There is no abdominal tenderness. There is no guarding. Neurological: Mental Status: He is alert. Psychiatric: Mood and Affect: Mood normal. Behavior: Behavior normal. DIAGNOSTIC RESULTS Procedures/EKG: EKG was reviewed by myself. Physician EKG interpretation can be found in [facility] RADIOLOGY (Per Emergency Physician): Interpretation per the Radiologist below, if available at the time of this note: CT abdomen pelvis w contrast (Results Pending) XR chest 1 view (Results Pending) ED BEDSIDE ULTRASOUND: Performed by ED Physician - none LABS: Labs Reviewed CBC WITH AUTO DIFFERENTIAL COMPREHENSIVE METABOLIC PANEL LIPASE COMPLETE URINALYSIS WITH REFLEX TO CULTURE Narrative: The following orders were created for panel order Urinalysis Complete with reflex to Culture. Procedure Abnormality Status --------- ------ Complete Urinalysis[[id number]] Please view results for these tests on the individual orders. TROPONIN I COMPLETE URINALYSIS All other labs were within normal range or not returned as of this dictation. EMERGENCY DEPARTMENT COURSE and DIFFERENTIAL DIAGNOSIS/MDM: Vitals: Vitals: 05/20/23194405/20/23194605/20/231947 BP: (!) 158/111 Pulse: (!) 117 Resp: 18 Temp: 36.6 C (97.9 F) TempSrc: Temporal SpO2: 95% 95% Weight: 90.3 kg (199 lb) Height: 1.778 m (5' 10) Patient presenting seeking detox he also has some abdominal pain discomfort and distention as well as some cough and wheezing. Plan treat with DuoNebs check chest x-ray and cardiac enzymes to evaluate for cardiac ischemia but suspect he actually does have COPD flare. His abdominal exam is largely benign but it is distended he is having nausea and vomiting given he is [address] to rule out other dangerous pathology such as mass and obstruction if everything comes back normal we will attempt to control his withdrawal with Ativan fluids and likely admit to detox. Diagnoses as of 05/20/232301 Alcohol withdrawal syndrome, uncomplicated (HCC) Medications albuterol (2.5 MG/3ML) 0.083% nebulizer solution 2.5 mg (has no administration in time range) sodium chloride 0.9 % bolus 1,000 mL (has no administration in time range) LORazepam (Ativan) injection 2 mg (has no administration in time range) predniSONE (Deltasone) tablet 50 mg (has no administration in time range) REVAL: CRITICAL CARE TIME CONSULTS: None PROCEDURES: Unless otherwise noted below, none Procedures Patients symptoms are consistent with sepsis, severe sepsis, or septic shock (If yes use .sepsiscoremeasure): no FINAL IMPRESSION No diagnosis found. DISPOSITION PATIENT REFERRED TO: No follow-up provider specified. DISCHARGE MEDICATIONS: New Prescriptions No medications on file (Comment: Please note this report has been produced using speech recognition software and may contain errors related to that system including errors in grammar, punctuation, and spelling, as well as words and phrases that may be inappropriate. If there are any questions or concerns please feel free to contact the dictating provider for clarification.) Scooter Luna MD (electronically signed) Emergency Medicine Provider Scooter Luna MD 05/20/232025 documented in this encounter [facility] 05-21-2023 Consult note Associated Order (s): IP CONSULT TO ADDICTION MEDICINE Images from the original note were not included. Addiction Medicine Patient: Maria De Jesus Hogan Admit Date: 05/20/2023 Primary Care Physician: Lynda Rasheed MD History of Present Illness Patient is a 57-year-old male presenting to [facility] for stabilization of alcohol dependence/withdrawal. Patient does have an extensive history of problematic alcohol use dating back to his teens. Positive history loss of control, increased tolerance, continued use despite adverse consequences, inability to abstain successfully on his own. Withdrawal positive for anxiety, sweats, tremors, possible DTs. Prior to coming the hospital consuming an unspecified amount of alcohol. Blood alcohol level was not obtained. ETG has been ordered. Patient denied use of any illicit drugs In reference to previous treatment, he has been through multiple detoxifications with [facility] dating back to 2014. He is has signed out AMA on several occasions. His most recent detoxification was in January 2023 at which time he did complete treatment. He states that he was abstinent from alcohol for 2 months Social History Socioeconomic History Marital status: Spouse name: Not on file Number of children: Not on file Years of education: Not on file Highest education level: Not on file Occupational History Not on file Tobacco Use Smoking status: Every Day Packs/day: 2 Types: Cigarettes Start date: 10/10/1985 Smokeless tobacco: Never Vaping Use Vaping Use: Never used Substance and Sexual Activity Alcohol use: Yes Comment: Detox home for a week 0 drinks 02/17/23 Drug use: No Sexual activity: Yes Partners: Female control/protection: Other Comment: live with Other Topics Concern Not on file Social History Narrative Not on file Social Determinants of Health Financial Resource Strain: Low Risk (02/09/2023) Overall Financial Resource Strain (CARDIA) Difficulty of Paying Living Expenses: Not very hard Food Insecurity: No Food Insecurity (02/09/2023) Hunger Vital Sign Worried About Running Out of Food in the Last Year: Never true Ran Out of Food in the Last Year: Never true Transportation Needs: No Transportation Needs (02/08/2023) PRAPARE - Transportation Lack of Transportation (Medical): No Lack of Transportation (Non-Medical): No Physical Activity: Inactive (02/09/2023) Exercise Vital Sign Days of Exercise per Week: 0 days Minutes of Exercise per Session: 0 min Stress: Stress Concern Present (02/09/2023) [place] [employer] - Occupational Stress Questionnaire Feeling of Stress : Very much Social Connections: Moderately Isolated (02/09/2023) Social Connection and Isolation Panel [NHANES] Frequency of Communication with Friends and Family: More than three times a week Frequency of Social Gatherings with Friends and Family: More than three times a week Attends Synagogue Services: Never Active Member of Clubs or Organizations: No Attends Club or Organization Meetings: Never Marital Status: Intimate Partner Violence: Not At Risk (07/22/2022) Humiliation, Afraid, Rape, and Kick questionnaire Fear of Current or Ex-Partner: No Emotionally Abused: No Physically Abused: No Sexually Abused: No Housing Stability: Unknown (02/08/2023) Housing Stability Vital Sign Unable to Pay for Housing in the Last Year: No Number of Places Lived in the Last Year: Not on file Unstable Housing in the Last Year: No Past Medical History: Diagnosis Date Alcohol abuse Alcohol dependence with withdrawal (HCC) 08/31/2019 Alcohol intoxication without use disorder, uncomplicated (HCC) 10/01/2019 Alcohol use disorder 09/10/2022 Alcohol withdrawal syndrome with complication (HCC) 09/27/2021 Alcohol withdrawal, uncomplicated (HCC) 08/31/2019 Alcohol withdrawal, with unspecified complication (HCC) 10/02/2019 Alcohol withdrawal, with unspecified complication (HCC) 10/02/2019 Alcoholism (CMS/HCC) (HCC) Anxiety Arthritis Maria De Jesus Cerebral artery occlusion with cerebral infarction (HCC) Cerebrovascular disease Depression GERD (gastroesophageal reflux disease) Maria De Jesus Hypertension Insomnia Past Surgical History: Procedure Laterality Date COLONOSCOPY 06/10/2020 EGD/Dr Madison/[facility] REMOVAL face EGD (HISTORICAL) 07/23/2022 Dr. Estrella-[facility] SMALL INTESTINE SURGERY UPPER GASTROINTESTINAL ENDOSCOPY 09/27/2021 normal WISDOM TOOTH EXTRACTION Family History Problem Relation Name Age of Onset Depression Sister Maria De Jesus Hogan Other ([id number]) Sister Maria De Jesus Hogan agoraphobia Arthritis Sister Maria De Jesus Hogan Cancer Mother Maria De Jesus Hogan colon rectal cancer; dx after age 50 Other ([id number]) Mother Maria De Jesus Hogan alcoholism Alcohol abuse Mother Maria De Jesus Hogan Stroke Mother Maria De Jesus Hogan Other ([id number]) Father Maria De Jesus Hogan h/o rheumatic fever, cardiac arrest due to bee sting Hypertension Father Maria De Jesus Hogan Labs Recent Results (from the past 48 hour(s)) CBC auto differential Collection Time: 05/20/23 8:29 PM Result Value Ref Range Auto WBC 5.5 3.6 - 10.7 10*3/uL RBC 4.86 4.40 - 5.90 10*6/uL Hemoglobin 16.3 13.0 - 18.0 g/dL Hematocrit 47.4 40.0 - 52.0 % MCV 97.7 80.0 - 98.0 fL MCH 33.6 26.0 - 34.0 pg MCHC 34.4 32.0 - 36.0 % RDW 14.2 11.5 - 14.5 % Platelets 199 140 - 440 10*3/uL MPV 7.0 (L) 7.4 - 12.4 fL nRBC 0.1 0.0 - 2.0 /100 WBCs Neutrophils Relative 56.4 40.0 - 80.0 % Lymphocytes Relative 26.0 20.0 - 40.0 % Monocytes Relative 15.2 (H) 2.0 - 10.0 % Eosinophils Relative 1.1 1.0 - 6.0 % Basophils Relative 1.3 0.0 - 2.0 % Neutrophils Absolute 3.1 1.8 - 7.0 10*3/uL Lymphocytes Absolute 1.4 1.0 - 4.3 10*3/uL Monocytes Absolute 0.8 0.0 - 0.8 10*3/uL Eosinophils Absolute 0.1 0.0 - 0.5 10*3/uL Basophils Absolute 0.1 0.0 - 0.2 10*3/uL Comprehensive metabolic panel Collection Time: 05/20/23 8:29 PM Result Value Ref Range SODIUM 130 (L) 135 - 145 mmol/L POTASSIUM 3.8 3.5 - 5.1 mmol/L CHLORIDE 92 (L) 98 - 107 mmol/L CARBON DIOXIDE 21 (L) 22 - 30 mmol/L ANION GAP 17 (H) 3 - 13 mmol/L UREA NITROGEN 5 (L) 9 - 20 mg/dL CREATININE 0.60 (L) 0.66 - 1.25 mg/dL GLUCOSE 119 (H) 70 - 100 mg/dL CALCIUM 9.0 8.4 - 10.4 mg/dL AST (SGOT) 123 (H) 15 - 46 U/L ALT 140 (H) 0 - 49 U/L ALKALINE PHOSPHATASE 104 38 - 126 U/L ALBUMIN 4.2 3.5 - 5.0 g/dL BILIRUBIN, TOTAL 0.6 0.2 - 1.3 mg/dL TOTAL PROTEIN 7.4 6.3 - 8.2 g/dL eGFR >90.0 >60.0 mL/min/1.73m*2 Lipase Collection Time: 05/20/23 8:29 PM Result Value Ref Range LIPASE 230 23 - 300 U/L Troponin - One Time order ONLY Collection Time: 05/20/23 8:29 PM Result Value Ref Range TROPONIN I <0.012 <0.034 ng/mL ECG 12 lead Collection Time: 05/20/23 8:31 PM Result Value Ref Range Heart Rate 97 bpm QRSD Interval 105 ms QT Interval 381 ms QTC Interval 484 ms P [place] 78 degrees QRS [place] 75 degrees T Wave [place] 60 degrees [place] Interval 154 ms POCT venous blood gas Collection Time: 05/20/23 9:56 PM Result Value Ref Range pH, Venous 7.333 7.330 - 7.430 pH pCO2, Venous 48.3 40 - 55 mm Hg pO2, Venous 53.3 mm Hg HCO3, Venous 25.6 23.0 - 27.0 mmol/L Base Excess, Venous -1.0 -3 - 3 mmol/L SO2, Venous 84.6 % FIO2 Complete Urinalysis Collection Time: 05/20/23 10:18 PM Result Value Ref Range Color, Urine Colorless Lt. Yellow Clarity, Urine Clear Clear pH, Urine 5.5 5.0 - 8.0 pH Leukocytes, Urine Negative Negative Estefani/uL Nitrite, Urine Negative Negative Protein, Urine Negative Negative mg/dL Glucose, Urine Normal Normal (<70) mg/dL Bilirubin, Urine Negative Negative mg/dL Ketones, Urine Negative Negative mg/dL Urobilinogen, Urine Normal Normal (0-1) mg/dL Blood, Urine Negative Negative mg/dL SPECIFIC GRAVITY OF URINE (NUMERIC) 1.003 (L) 1.005 - 1.030 Medications Home Meds: Prior to Admission medications Medication Sig Start Date End Date Taking? Authorizing Provider albuterol 108 (90 Base) MCG/ACT inhaler Inhale 2 puffs every 6 hours as needed for wheezing or shortness of breath. 04/24/23 Lynda Rasheed MD calcipotriene (Dovonex) 0.005 % cream Apply topically 2 times daily. 09/25/22 Lynda Rasheed MD clobetasol (Temovate) 0.05 % cream Apply topically 2 times daily. 09/25/22 05/23/23 Lynda Rasheed MD gabapentin (Neurontin) 600 MG tablet Take 1 tablet (600 mg) by mouth 3 times daily. 04/24/23 Lynda Rasheed MD melatonin 5 MG tablet Take 1 tablet (5 mg) by mouth Nightly. 04/24/23 Lynda aRsheed MD Multiple Vitamins tablet Take 1 tablet by mouth daily. 04/24/23 Lynda Rasheed MD nicotine (Nicoderm, Step 2) 14 MG/24HR patch Place 1 patch on the skin daily. Do not start before October 23, 2022. 10/23/22 Robyn Edmond APRN - WAITSTAFF CAPTAIN nicotine polacrilex (Commit) 2 MG lozenge Dissolve 1 lozenge (2 mg) in the mouth every 2 hours as needed for smoking cessation (nicotine craving, urge to smoke). 04/24/23 Lynda Rasheed MD pantoprazole (ProtoNix) 40 MG EC tablet Take 1 tablet (40 mg) by mouth every morning (before breakfast). 09/25/22 Lynda Rasheed MD Thiamine Mononitrate (Vitamin B1) 100 MG tablet Take 1 tablet (100 mg) by mouth daily. 12/10/22 Lynda Rasheed MD Inpatient Scheduled Meds: calcipotriene, , Topical, BID clobetasol, , Topical, BID enoxaparin, 40 mg, SubCUTAneous, Daily folic acid, 1 mg, Oral, Daily gabapentin, 600 mg, Oral, TID pantoprazole, 40 mg, Oral, qAM AC PHENobarbital, 100 mg, IntraVENous, Q4H thiamine, 100 mg, Oral, Daily Inpatient PRN Meds: PRN medications: acetaminophen OR acetaminophen, LORazepam OR LORazepam OR LORazepam OR LORazepam OR LORazepam OR LORazepam OR LORazepam OR LORazepam, Melatonin, nicotine OR nicotine OR nicotine OR nicotine polacrilex, ondansetron ODT OR ondansetron, polyethylene glycol (PEG) 3350 Exam Vitals: 05/21/23 0502 05/21/23 0702 05/21/23 1000 05/21/23 1010 BP: 130/75 (!) 155/93 (!) 135/92 98/86 Pulse: (!) 113 (!) 117 106 107 Resp: Temp: TempSrc: SpO2: 93% 93% 95% Weight: Height: Physical Exam Patient resting in the ER. He is flushed, extremely diaphoretic. Markedly tremulous oriented x 4. No auditory, tactile or visual disturbances. Assessment & Plan Patient placed on phenobarbital 100 mg IV every 4 hours along with lorazepam as needed EtOH withdrawal As patient stabilizes will investigate treatment options BRYAN RODRIGUEZ MD Addiction Medicine 05/21/2023 at 10:43 AM -55--- minutes were spent reviewing the patient's records, evaluating the patient, entering orders, coordinating care with the treatment team, and creating a progress note. Narrative portions of the note are written utilizing [employer] software. While every effort is made to dictate clearly and proofread, errors in the dictation may still occur. If there are any questions regarding the dictation please do not hesitate to contact the author. [facility] 05-21-2023 Consult note Associated Order (s): IP CONSULT TO ADDICTION MEDICINE Images from the original note were not included. Addiction Medicine Patient: Maria De Jesus Hogan Admit Date: 05/20/2023 Primary Care Physician: Lynda Rasheed MD History of Present Illness Patient is a 57-year-old male presenting to [facility] for stabilization of alcohol dependence/withdrawal. Patient does have an extensive history of problematic alcohol use dating back to his teens. Positive history loss of control, increased tolerance, continued use despite adverse consequences, inability to abstain successfully on his own. Withdrawal positive for anxiety, sweats, tremors, possible DTs. Prior to coming the hospital consuming an unspecified amount of alcohol. Blood alcohol level was not obtained. ETG has been ordered. Patient denied use of any illicit drugs In reference to previous treatment, he has been through multiple detoxifications with [facility] dating back to 2014. He is has signed out AMA on several occasions. His most recent detoxification was in January 2023 at which time he did complete treatment. He states that he was abstinent from alcohol for 2 months Social History Socioeconomic History Marital status: Spouse name: Not on file Number of children: Not on file Years of education: Not on file Highest education level: Not on file Occupational History Not on file Tobacco Use Smoking status: Every Day Packs/day: 2 Types: Cigarettes Start date: 10/10/1985 Smokeless tobacco: Never Vaping Use Vaping Use: Never used Substance and Sexual Activity Alcohol use: Yes Comment: Detox home for a week 0 drinks 02/17/23 Drug use: No Sexual activity: Yes Partners: Female control/protection: Other Comment: live with Other Topics Concern Not on file Social History Narrative Not on file Social Determinants of Health Financial Resource Strain: Low Risk (02/09/2023) Overall Financial Resource Strain (CARDIA) Difficulty of Paying Living Expenses: Not very hard Food Insecurity: No Food Insecurity (02/09/2023) Hunger Vital Sign Worried About Running Out of Food in the Last Year: Never true Ran Out of Food in the Last Year: Never true Transportation Needs: No Transportation Needs (02/08/2023) PRAPARE - Transportation Lack of Transportation (Medical): No Lack of Transportation (Non-Medical): No Physical Activity: Inactive (02/09/2023) Exercise Vital Sign Days of Exercise per Week: 0 days Minutes of Exercise per Session: 0 min Stress: Stress Concern Present (02/09/2023) [place] [employer] - Occupational Stress Questionnaire Feeling of Stress : Very much Social Connections: Moderately Isolated (02/09/2023) Social Connection and Isolation Panel [NHANES] Frequency of Communication with Friends and Family: More than three times a week Frequency of Social Gatherings with Friends and Family: More than three times a week Attends Synagogue Services: Never Active Member of Clubs or Organizations: No Attends Club or Organization Meetings: Never Marital Status: Intimate Partner Violence: Not At Risk (07/22/2022) Humiliation, Afraid, Rape, and Kick questionnaire Fear of Current or Ex-Partner: No Emotionally Abused: No Physically Abused: No Sexually Abused: No Housing Stability: Unknown (02/08/2023) Housing Stability Vital Sign Unable to Pay for Housing in the Last Year: No Number of Places Lived in the Last Year: Not on file Unstable Housing in the Last Year: No Past Medical History: Diagnosis Date Alcohol abuse Alcohol dependence with withdrawal (HCC) 08/31/2019 Alcohol intoxication without use disorder, uncomplicated (HCC) 10/01/2019 Alcohol use disorder 09/10/2022 Alcohol withdrawal syndrome with complication (HCC) 09/27/2021 Alcohol withdrawal, uncomplicated (HCC) 08/31/2019 Alcohol withdrawal, with unspecified complication (HCC) 10/02/2019 Alcohol withdrawal, with unspecified complication (HCC) 10/02/2019 Alcoholism (CMS/HCC) (HCC) Anxiety Arthritis Maria De Jesus Cerebral artery occlusion with cerebral infarction (HCC) Cerebrovascular disease Depression GERD (gastroesophageal reflux disease) Maria De Jesus Hypertension Insomnia Past Surgical History: Procedure Laterality Date COLONOSCOPY 06/10/2020 EGD/Dr Madison/B CYST REMOVAL face EGD (HISTORICAL) 07/23/2022 Dr. Estrella-[facility] SMALL INTESTINE SURGERY UPPER GASTROINTESTINAL ENDOSCOPY 09/27/2021 normal WISDOM TOOTH EXTRACTION Family History Problem Relation Name Age of Onset Depression Sister Maria De Jesus Hogan Other ([id number]) Sister Maria De Jesus Hogan agoraphobia Arthritis Sister Maria De Jesus Hogan Cancer Mother Maria De Jesus Hogan colon rectal cancer; dx after age 50 Other ([id number]) Mother Maria De Jesus Hogan alcoholism Alcohol abuse Mother Maria De Jesus Hogan Stroke Mother Maria De Jesus Hogan Other ([id number]) Father Maria De Jesus Hogan h/o rheumatic fever, cardiac arrest due to bee sting Hypertension Father Maria De Jesus Hogan Labs Recent Results (from the past 48 hour(s)) CBC auto differential Collection Time: 05/20/23 8:29 PM Result Value Ref Range Auto WBC 5.5 3.6 - 10.7 10*3/uL RBC 4.86 4.40 - 5.90 10*6/uL Hemoglobin 16.3 13.0 - 18.0 g/dL Hematocrit 47.4 40.0 - 52.0 % MCV 97.7 80.0 - 98.0 fL MCH 33.6 26.0 - 34.0 pg MCHC 34.4 32.0 - 36.0 % RDW 14.2 11.5 - 14.5 % Platelets 199 140 - 440 10*3/uL MPV 7.0 (L) 7.4 - 12.4 fL nRBC 0.1 0.0 - 2.0 /100 WBCs Neutrophils Relative 56.4 40.0 - 80.0 % Lymphocytes Relative 26.0 20.0 - 40.0 % Monocytes Relative 15.2 (H) 2.0 - 10.0 % Eosinophils Relative 1.1 1.0 - 6.0 % Basophils Relative 1.3 0.0 - 2.0 % Neutrophils Absolute 3.1 1.8 - 7.0 10*3/uL Lymphocytes Absolute 1.4 1.0 - 4.3 10*3/uL Monocytes Absolute 0.8 0.0 - 0.8 10*3/uL Eosinophils Absolute 0.1 0.0 - 0.5 10*3/uL Basophils Absolute 0.1 0.0 - 0.2 10*3/uL Comprehensive metabolic panel Collection Time: 05/20/23 8:29 PM Result Value Ref Range SODIUM 130 (L) 135 - 145 mmol/L POTASSIUM 3.8 3.5 - 5.1 mmol/L CHLORIDE 92 (L) 98 - 107 mmol/L CARBON DIOXIDE 21 (L) 22 - 30 mmol/L ANION GAP 17 (H) 3 - 13 mmol/L UREA NITROGEN 5 (L) 9 - 20 mg/dL CREATININE 0.60 (L) 0.66 - 1.25 mg/dL GLUCOSE 119 (H) 70 - 100 mg/dL CALCIUM 9.0 8.4 - 10.4 mg/dL AST (SGOT) 123 (H) 15 - 46 U/L ALT 140 (H) 0 - 49 U/L ALKALINE PHOSPHATASE 104 38 - 126 U/L ALBUMIN 4.2 3.5 - 5.0 g/dL BILIRUBIN, TOTAL 0.6 0.2 - 1.3 mg/dL TOTAL PROTEIN 7.4 6.3 - 8.2 g/dL eGFR >90.0 >60.0 mL/min/1.73m*2 Lipase Collection Time: 05/20/23 8:29 PM Result Value Ref Range LIPASE 230 23 - 300 U/L Troponin - One Time order ONLY Collection Time: 05/20/23 8:29 PM Result Value Ref Range TROPONIN I <0.012 <0.034 ng/mL ECG 12 lead Collection Time: 05/20/23 8:31 PM Result Value Ref Range Heart Rate 97 bpm QRSD Interval 105 ms QT Interval 381 ms QTC Interval 484 ms P [place] 78 degrees QRS [place] 75 degrees T Wave [place] 60 degrees [place] Interval 154 ms POCT venous blood gas Collection Time: 05/20/23 9:56 PM Result Value Ref Range pH, Venous 7.333 7.330 - 7.430 pH pCO2, Venous 48.3 40 - 55 mm Hg pO2, Venous 53.3 mm Hg HCO3, Venous 25.6 23.0 - 27.0 mmol/L Base Excess, Venous -1.0 -3 - 3 mmol/L SO2, Venous 84.6 % FIO2 Complete Urinalysis Collection Time: 05/20/23 10:18 PM Result Value Ref Range Color, Urine Colorless Lt. Yellow Clarity, Urine Clear Clear pH, Urine 5.5 5.0 - 8.0 pH Leukocytes, Urine Negative Negative Estefani/uL Nitrite, Urine Negative Negative Protein, Urine Negative Negative mg/dL Glucose, Urine Normal Normal (<70) mg/dL Bilirubin, Urine Negative Negative mg/dL Ketones, Urine Negative Negative mg/dL Urobilinogen, Urine Normal Normal (0-1) mg/dL Blood, Urine Negative Negative mg/dL SPECIFIC GRAVITY OF URINE (NUMERIC) 1.003 (L) 1.005 - 1.030 Medications Home Meds: Prior to Admission medications Medication Sig Start Date End Date Taking? Authorizing Provider albuterol 108 (90 Base) MCG/ACT inhaler Inhale 2 puffs every 6 hours as needed for wheezing or shortness of breath. 04/24/23 Lynda Rasheed MD calcipotriene (Dovonex) 0.005 % cream Apply topically 2 times daily. 09/25/22 Lynda Rasheed MD clobetasol (Temovate) 0.05 % cream Apply topically 2 times daily. 09/25/22 05/23/23 yLnda Rasheed MD gabapentin (Neurontin) 600 MG tablet Take 1 tablet (600 mg) by mouth 3 times daily. 04/24/23 Lynda Rasheed MD melatonin 5 MG tablet Take 1 tablet (5 mg) by mouth Nightly. 04/24/23 Lynda Rasheed MD Multiple Vitamins tablet Take 1 tablet by mouth daily. 04/24/23 Lynda Rasheed MD nicotine (Nicoderm, Step 2) 14 MG/24HR patch Place 1 patch on the skin daily. Do not start before October 23, 2022. 10/23/22 Robyn Edmond APRN - WAITSTAFF CAPTAIN nicotine polacrilex (Commit) 2 MG lozenge Dissolve 1 lozenge (2 mg) in the mouth every 2 hours as needed for smoking cessation (nicotine craving, urge to smoke). 04/24/23 Lynda Rasheed MD pantoprazole (ProtoNix) 40 MG EC tablet Take 1 tablet (40 mg) by mouth every morning (before breakfast). 09/25/22 Lynda Rasheed MD Thiamine Mononitrate (Vitamin B1) 100 MG tablet Take 1 tablet (100 mg) by mouth daily. 12/10/22 Lynda Rasheed MD Inpatient Scheduled Meds: calcipotriene, , Topical, BID clobetasol, , Topical, BID enoxaparin, 40 mg, SubCUTAneous, Daily folic acid, 1 mg, Oral, Daily gabapentin, 600 mg, Oral, TID pantoprazole, 40 mg, Oral, qAM AC PHENobarbital, 100 mg, IntraVENous, Q4H thiamine, 100 mg, Oral, Daily Inpatient PRN Meds: PRN medications: acetaminophen OR acetaminophen, LORazepam OR LORazepam OR LORazepam OR LORazepam OR LORazepam OR LORazepam OR LORazepam OR LORazepam, Melatonin, nicotine OR nicotine OR nicotine OR nicotine polacrilex, ondansetron ODT OR ondansetron, polyethylene glycol (PEG) 3350 Exam Vitals: 05/21/23 0502 05/21/23 0702 05/21/23 1000 05/21/23 1010 BP: 130/75 (!) 155/93 (!) 135/92 98/86 Pulse: (!) 113 (!) 117 106 107 Resp: Temp: TempSrc: SpO2: 93% 93% 95% Weight: Height: Physical Exam Patient resting in the ER. He is flushed, extremely diaphoretic. Markedly tremulous oriented x 4. No auditory, tactile or visual disturbances. Assessment & Plan Patient placed on phenobarbital 100 mg IV every 4 hours along with lorazepam as needed EtOH withdrawal As patient stabilizes will investigate treatment options BRYAN RODRIGUEZ MD Addiction Medicine 05/21/2023 at 10:43 AM -55--- minutes were spent reviewing the patient's records, evaluating the patient, entering orders, coordinating care with the treatment team, and creating a progress note. Narrative portions of the note are written utilizing [employer] software. While every effort is made to dictate clearly and proofread, errors in the dictation may still occur. If there are any questions regarding the dictation please do not hesitate to contact the author. documented in this encounter [facility] 05-21-2023 Emergency department Note Pt upset with having all the cords and I dont need these blue things (seizure pads) educated pt on need for seizure pads due to the potential for seizures with withdrawal. RN placed another IV in hand per pt request to make the IV pump stop beeping. BP cuff removed. Estella De Dios RN 05/21/23 0814 [facility] 05-21-2023 Emergency department Note Rounding on pt: pt states I don't know I might need some more of that medicine CIWA reassessed, pt c/o anxiety and jitteriness, slight agitation Estella De Dios RN 05/21/23 0739 [facility] 05-21-2023 Emergency department Note Patient ordered breakfast. Alpa Middleton RN 05/21/23 0700 [facility] 05-21-2023 Emergency department Note Seizure pads placed on patient's bed at this time. Alpa Middleton RN 05/21/23 0425 [facility] 05-21-2023 Emergency department Note Patient told this RN that he is now feeling more jittery and anxious than before. CIWA reassessed. Alpa Middleton RN 05/21/23 0312 [facility] 05-21-2023 History and physical note Images from the original note were not included. History and Physical [facility] [place]ika [place] : 1965 AGE 57 y.o. YEARS Note Date 05/21/2023 Primary Care Physician:Lynda Rasheed MD Current Providers as of 05/20/2023 PCP: Lynda Rasheed MD Referring Provider: not found, starting on SatMay 20, 2023 12:00 AM Admitting Provider: Shelly Cruz MD, (Active) Attending Provider: Scooter Luna MD, starting on SatMay 20, 2023 7:46 PM, ending on SatMay 20, 2023 11:18 PM (Inactive) Attending Provider: Shelly Cruz MD, starting on SatMay 20, 2023 11:02 PM (Active) Registered Nurse: Alpa Middleton RN, starting on SatMay 20, 2023 7:54 PM (Active) Chief Complaint: Alcohol Problem (Pt. States he would like to do inpatient detox from alcohol. States he drinks 3-4 tall boys of beer per day. 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.) HPI: He presented to the ED with a desire to be admitted to detox and get off alcohol He is aware that he is drinking every day several 24 ounce beers a day also not eating very much He has daily nausea Has not really a normally over the past month He has a strong desire to quit alcohol 100% completely and is afraid he will go into withdrawal Last drink was 7 PM on 05/20/2023 He was referred for hospitalist admission answered currently no detox beds available Review of Systems: General: Skin: HEENT: Cardiovascular Fever n Rashes n Difficulty chewing n Chest Pain n Chills n Sores n Appetite Loss n Chest Pressure n Fatigue n Epistaxis n Orthopnea n Sweats y Hearing loss n Palpitations n GI: Tinnitus n GERD y Vision quality n RESP: Abdominal Pain n : SOB/CINTRON chronically Nausea y Hematuria n Cough n Vomiting y Dysuria n Productive/Sputum n Hematemesis n NEURO: Urgency n Hemoptysis Diarrhea n Headaches n Frequency n Wheezing Constipation n Seizures n Times at night urinating n Heamatochezia n Neuropathy In his feet catheter present n MSK: Melena n Focal weakness n Hesitancy n Focal Numbness Incontinence n Acute joint pain n Dizzy/Vertigo n Redness n Difficulty speaking n Heme/Lymph Swelling n Difficulty walking n Lymphadenopathy Myalgia n Ataxia Chronic joint pain n Past Medical History: Diagnosis Date Alcohol abuse Alcohol dependence with withdrawal (HCC) 08/31/2019 Alcohol intoxication without use disorder, uncomplicated (HCC) 10/01/2019 Alcohol use disorder 09/10/2022 Alcohol withdrawal syndrome with complication (HCC) 09/27/2021 Alcohol withdrawal, uncomplicated (HCC) 08/31/2019 Alcohol withdrawal, with unspecified complication (HCC) 10/02/2019 Alcohol withdrawal, with unspecified complication (HCC) 10/02/2019 Alcoholism ([facility]/HCC) (HCC) Anxiety Arthritis Maria De Jesus Cerebral artery occlusion with cerebral infarction (HCC) Cerebrovascular disease Depression GERD (gastroesophageal reflux disease) Maria De Jesus Hypertension Insomnia Past Surgical History: Procedure Laterality Date COLONOSCOPY 06/10/2020 EGD/Dr Madison/[facility] CYST REMOVAL face EGD (HISTORICAL) 07/23/2022 Dr. Estrella-[facility] SMALL INTESTINE SURGERY UPPER GASTROINTESTINAL ENDOSCOPY 09/27/2021 normal WISDOM TOOTH EXTRACTION Allergies Allergen Reactions Bee Venom Swelling Nickel Rash Tramadol Nausea And Vomiting Other reaction(s): AOF Medications Prior to Admission: Current Outpatient Medications Medication Instructions albuterol 108 (90 Base) MCG/ACT inhaler 2 puffs, Inhalation, Every 6 hours PRN calcipotriene (Dovonex) 0.005 % cream Topical, 2 times daily clobetasol (Temovate) 0.05 % cream Topical, 2 times daily gabapentin (NEURONTIN) 600 mg, Oral, 3 times daily melatonin 5 mg, Oral, Nightly Multiple Vitamins tablet 1 tablet, Oral, Daily nicotine (Nicoderm, Step 2) 14 MG/24HR patch 1 patch, TransDERmal, Daily nicotine polacrilex (COMMIT) 2 mg, Mouth/Throat, Every 2 hour PRN pantoprazole (PROTONIX) 40 mg, Oral, Daily before breakfast Thiamine Mononitrate (VITAMIN B1) 100 mg, Oral, Daily Social History Social History Tobacco Use Smoking status: Every Day Packs/day: 2 Types: Cigarettes Start date: 10/10/1985 Smokeless tobacco: Never Substance Use Topics Alcohol use: Yes Comment: Detox home for a week 0 drinks 02/17/23 Family History Family History Problem Relation Name Age of Onset Depression Sister Maria De Jesus Hogan Other ([id number]) Sister Maria De Jesus Hogan agoraphobia Arthritis Sister Maria De Jesus Hogan Cancer Mother Maria De Jesus Hogan colon rectal cancer; dx after age 50 Other ([id number]) Mother Maria De Jesus Hogan alcoholism Alcohol abuse Mother Maria De Jesus Hogan Stroke Mother Maria De Jesus Hogan Other ([id number]) Father Maria De Jesus Hogan h/o rheumatic fever, cardiac arrest due to bee sting Hypertension Father Maria De Jesus Hogan Physical Exam Temp (24hrs), Av.6 C (97.9 F), Min:36.6 C (97.9 F), Max:36.6 C (97.9 F) Body mass index is 28.55 kg/m .BMI Classification: Overweight (BMI 25.0-29.9) BP (!) 139/93 Pulse 105 Temp 36.6 C (97.9 F) (Temporal) Resp 16 Ht 5' 10 (1.778 m) Wt 199 lb (90.3 kg) SpO2 94% BMI 28.55 kg/m Pulse Ox: SpO2 Av.4 % Min: 84 % Max: 98 % Supplemental O2: O2 Flow Rate (L/min): 6 L/min General appearance: He is alert, answering questions well HEENT: Normal cephalic, atraumatic without obvious deformity. Pupils equal, round, and reactive to light. Extra ocular muscles intact. Conjunctivae/corneas clear. Neck: Supple, with full range of motion. No jugular venous distention. Trachea midline. No lymphadenopathy. Respiratory: Normal respiratory effort. Clear to auscultation, bilaterally without Rales/Wheezes/Rhonchi. Cardiovascular: Regular rate and rhythm with normal S1/S2 without murmurs, rubs or gallops. Abdomen: Slightly distended no particular areas of tenderness normal bowel sounds Musculoskeletal: No clubbing, cyanosis or edema bilaterally. Full range of motion without deformity. Skin: Skin color, texture, turgor normal. No rashes or lesions. Neurologic: Neurovascularly intact without any focal sensory/motor deficits. Cranial nerves grossly intact. Labs Admission on 05/20/2023 Component Date Value Auto WBC 05/20/2023 5.5 RBC 05/20/2023 4.86 Hemoglobin 05/20/2023 16.3 Hematocrit 05/20/2023 47.4 MCV 05/20/2023 97.7 MCH 05/20/2023 33.6 MCHC 05/20/2023 34.4 RDW 05/20/2023 14.2 Platelets 05/20/2023 199 MPV 05/20/2023 7.0 (L) nRBC 05/20/2023 0.1 Neutrophils Relative 05/20/2023 56.4 Lymphocytes Relative 05/20/2023 26.0 Monocytes Relative 05/20/2023 15.2 (H) Eosinophils Relative 05/20/2023 1.1 Basophils Relative 05/20/2023 1.3 Neutrophils Absolute 05/20/2023 3.1 Lymphocytes Absolute 05/20/2023 1.4 Monocytes Absolute 05/20/2023 0.8 Eosinophils Absolute 05/20/2023 0.1 Basophils Absolute 05/20/2023 0.1 SODIUM 05/20/2023 130 (L) POTASSIUM 05/20/2023 3.8 CHLORIDE 05/20/2023 92 (L) CARBON DIOXIDE 05/20/2023 21 (L) ANION GAP 05/20/2023 17 (H) UREA NITROGEN 05/20/2023 5 (L) CREATININE 05/20/2023 0.60 (L) GLUCOSE 05/20/2023 119 (H) CALCIUM 05/20/2023 9.0 AST (SGOT) 05/20/2023 123 (H) ALT 05/20/2023 140 (H) ALKALINE PHOSPHATASE 05/20/2023 104 ALBUMIN 05/20/2023 4.2 BILIRUBIN, TOTAL 05/20/2023 0.6 TOTAL PROTEIN 05/20/2023 7.4 eGFR 05/20/2023 >90.0 LIPASE 05/20/2023 230 TROPONIN I 05/20/2023 <0.012 Heart Rate 05/20/2023 97 QRSD Interval 05/20/2023 105 QT Interval 05/20/2023 381 QTC Interval 05/20/2023 484 P [place] 05/20/2023 78 QRS [place] 05/20/2023 75 T Wave [place] 05/20/2023 60 [place] Interval 05/20/2023 154 Color, Urine 05/20/2023 Colorless Clarity, Urine 05/20/2023 Clear pH, Urine 05/20/2023 5.5 Leukocytes, Urine 05/20/2023 Negative Nitrite, Urine 05/20/2023 Negative Protein, Urine 05/20/2023 Negative Glucose, Urine 05/20/2023 Normal Bilirubin, Urine 05/20/2023 Negative Ketones, Urine 05/20/2023 Negative Urobilinogen, Urine 05/20/2023 Normal Blood, Urine 05/20/2023 Negative SPECIFIC GRAVITY OF URIN* 05/20/2023 1.003 (L) pH, Venous 05/20/2023 7.333 pCO2, Venous 05/20/2023 48.3 pO2, Venous 05/20/2023 53.3 HCO3, Venous 05/20/2023 25.6 Base Excess, Venous 05/20/2023 -1.0 SO2, Venous 05/20/2023 84.6 EKG Encounter Date: 05/20/23 ECG 12 lead Result Value Heart Rate 97 QRSD Interval 105 QT Interval 381 QTC Interval 484 P [place] 78 QRS [place] 75 T Wave [place] 60 [place] Interval 154 Impression Sinus rhythm Consider left atrial enlargement Abnormal T, consider ischemia, anterior leads No previous ECG available for comparison Assessment/Plan and Medical Decision Making Etoh abuse He is a daily drinker and has drank heavily for about 20 years although sometimes he has been able to quit most recently after attending inpatient program last fall he was able to quit for a month. He strongly desires to quit He will be admitted provided with Ativan and phenobarbital hydration and addiction med consult for alcohol detoxification He admits to not eating very much recently he is nauseated does have appetite loss but he does not have any physical problems chewing or swallowing his food Since being admitted he has been able to tolerate liquids. And is trying to tolerate some solid food if unable to eat may need follow-up GI consult Laboratory values currently show slightly low sodium of 130 which is likely due to his alcohol intake and poor p.o. intake bicarb of 21 slight elevated anion gap of 17 which could be due to alcohol on board his lipase is normal his AST is slightly elevated at 123 and ALT of 140 hyponatremia As above low sodium likely due to poor p.o. intake and alcohol use will encourage better nutrition intake and cutting off on the alcohol will repeat sodium in the morning His symptoms of constant nausea could be related to this hyponatremia Nicotine abuse Nicotine patches will be ordered Neuropathy I will continue gabapentin 600 mg 3 times daily as verified on AP his PDMP History of GERD I will continue her Protonix he takes at home I discussed the need for admission with the emergency provider. -DVT prophylaxis: [x] Lovenox [] Heparin [] SCDs [x] Encourage ambulation [] Already on Anticoagulation [] Pharmocologic prophylaxis on hold to due risk bleed/procedure [] Low risk, ambulatory [] Both pharmacologic and mechanical contraindicated 05/21/2023 Maria De Jesus Farr [place] [id number] Any scheduled follow up appointments Extended Emergency Contact Information Primary Emergency Contact: [place] Mobile Relation: Spouse Portions of this note may be electronically transcribed. Please forward a copy of this H&P to the primary care physician. [facility] [employer] Work Phone: 05-21-2023 History and physical note Images from the original note were not included. History and Physical [facility] Maria De Jesus Hogan : 1965 AGE 57 y.o. YEARS Note Date 05/21/2023 Primary Care Physician:Lynda Rasheed MD Current Providers as of 05/20/2023 PCP: Lynda Rasheed MD Referring Provider: not found, starting on SatMay 20, 2023 12:00 AM Admitting Provider: Shelly Cruz MD, (Active) Attending Provider: Scooter Luna MD, starting on SatMay 20, 2023 7:46 PM, ending on SatMay 20, 2023 11:18 PM (Inactive) Attending Provider: Shelly Cruz MD, starting on SatMay 20, 2023 11:02 PM (Active) Registered Nurse: Alpa Middleton RN, starting on SatMay 20, 2023 7:54 PM (Active) Chief Complaint: Alcohol Problem (Pt. States he would like to do inpatient detox from alcohol. States he drinks 3-4 tall boys of beer per day. 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.) HPI: He presented to the ED with a desire to be admitted to detox and get off alcohol He is aware that he is drinking every day several 24 ounce beers a day also not eating very much He has daily nausea Has not really a normally over the past month He has a strong desire to quit alcohol 100% completely and is afraid he will go into withdrawal Last drink was 7 PM on 05/20/2023 He was referred for hospitalist admission answered currently no detox beds available Review of Systems: General: Skin: HEENT: Cardiovascular Fever n Rashes n Difficulty chewing n Chest Pain n Chills n Sores n Appetite Loss n Chest Pressure n Fatigue n Epistaxis n Orthopnea n Sweats y Hearing loss n Palpitations n GI: Tinnitus n GERD y Vision quality n RESP: Abdominal Pain n : SOB/CINTRON chronically Nausea y Hematuria n Cough n Vomiting y Dysuria n Productive/Sputum n Hematemesis n NEURO: Urgency n Hemoptysis Diarrhea n Headaches n Frequency n Wheezing Constipation n Seizures n Times at night urinating n Heamatochezia n Neuropathy In his feet catheter present n MSK: Melena n Focal weakness n Hesitancy n Focal Numbness Incontinence n Acute joint pain n Dizzy/Vertigo n Redness n Difficulty speaking n Heme/Lymph Swelling n Difficulty walking n Lymphadenopathy Myalgia n Ataxia Chronic joint pain n Past Medical History: Diagnosis Date Alcohol abuse Alcohol dependence with withdrawal (HCC) 08/31/2019 Alcohol intoxication without use disorder, uncomplicated (HCC) 10/01/2019 Alcohol use disorder 09/10/2022 Alcohol withdrawal syndrome with complication (HCC) 09/27/2021 Alcohol withdrawal, uncomplicated (HCC) 08/31/2019 Alcohol withdrawal, with unspecified complication (HCC) 10/02/2019 Alcohol withdrawal, with unspecified complication (HCC) 10/02/2019 Alcoholism (CMS/HCC) (HCC) Anxiety Arthritis Maria De Jesus Cerebral artery occlusion with cerebral infarction (HCC) Cerebrovascular disease Depression GERD (gastroesophageal reflux disease) Maria De Jesus Hypertension Insomnia Past Surgical History: Procedure Laterality Date COLONOSCOPY 06/10/2020 EGD/Dr Madison/[facility] CYST REMOVAL face EGD (HISTORICAL) 07/23/2022 Dr. Estrella-[facility] SMALL INTESTINE SURGERY UPPER GASTROINTESTINAL ENDOSCOPY 09/27/2021 normal WISDOM TOOTH EXTRACTION Allergies Allergen Reactions Bee Venom Swelling Nickel Rash Tramadol Nausea And Vomiting Other reaction(s): AOF Medications Prior to Admission: Current Outpatient Medications Medication Instructions albuterol 108 (90 Base) MCG/ACT inhaler 2 puffs, Inhalation, Every 6 hours PRN calcipotriene (Dovonex) 0.005 % cream Topical, 2 times daily clobetasol (Temovate) 0.05 % cream Topical, 2 times daily gabapentin (NEURONTIN) 600 mg, Oral, 3 times daily melatonin 5 mg, Oral, Nightly Multiple Vitamins tablet 1 tablet, Oral, Daily nicotine (Nicoderm, Step 2) 14 MG/24HR patch 1 patch, TransDERmal, Daily nicotine polacrilex (COMMIT) 2 mg, Mouth/Throat, Every 2 hour PRN pantoprazole (PROTONIX) 40 mg, Oral, Daily before breakfast Thiamine Mononitrate (VITAMIN B1) 100 mg, Oral, Daily Social History Social History Tobacco Use Smoking status: Every Day Packs/day: 2 Types: Cigarettes Start date: 10/10/1985 Smokeless tobacco: Never Substance Use Topics Alcohol use: Yes Comment: Detox home for a week 0 drinks 02/17/23 Family History Family History Problem Relation Name Age of Onset Depression Sister Maria De Jesus Hogan Other ([id number]) Sister Maria De Jesus Hogan agoraphobia Arthritis Sister Maria De Jesus Hogan Cancer Mother Maria De Jesus Hogan colon rectal cancer; dx after age 50 Other ([id number]) Mother Maria De Jesus Hogan alcoholism Alcohol abuse Mother Maria De Jesus Hogan Stroke Mother Maria De Jesus Hogan Other ([id number]) Father Maria De Jesus Hogan h/o rheumatic fever, cardiac arrest due to bee sting Hypertension Father Maria De Jesus Hogan Physical Exam Temp (24hrs), Av.6 C (97.9 F), Min:36.6 C (97.9 F), Max:36.6 C (97.9 F) Body mass index is 28.55 kg/m .BMI Classification: Overweight (BMI 25.0-29.9) BP (!) 139/93 Pulse 105 Temp 36.6 C (97.9 F) (Temporal) Resp 16 Ht 5' 10 (1.778 m) Wt 199 lb (90.3 kg) SpO2 94% BMI 28.55 kg/m Pulse Ox: SpO2 Av.4 % Min: 84 % Max: 98 % Supplemental O2: O2 Flow Rate (L/min): 6 L/min General appearance: He is alert, answering questions well HEENT: Normal cephalic, atraumatic without obvious deformity. Pupils equal, round, and reactive to light. Extra ocular muscles intact. Conjunctivae/corneas clear. Neck: Supple, with full range of motion. No jugular venous distention. Trachea midline. No lymphadenopathy. Respiratory: Normal respiratory effort. Clear to auscultation, bilaterally without Rales/Wheezes/Rhonchi. Cardiovascular: Regular rate and rhythm with normal S1/S2 without murmurs, rubs or gallops. Abdomen: Slightly distended no particular areas of tenderness normal bowel sounds Musculoskeletal: No clubbing, cyanosis or edema bilaterally. Full range of motion without deformity. Skin: Skin color, texture, turgor normal. No rashes or lesions. Neurologic: Neurovascularly intact without any focal sensory/motor deficits. Cranial nerves grossly intact. Labs Admission on 05/20/2023 Component Date Value Auto WBC 05/20/2023 5.5 RBC 05/20/2023 4.86 Hemoglobin 05/20/2023 16.3 Hematocrit 05/20/2023 47.4 MCV 05/20/2023 97.7 MCH 05/20/2023 33.6 MCHC 05/20/2023 34.4 RDW 05/20/2023 14.2 Platelets 05/20/2023 199 MPV 05/20/2023 7.0 (L) nRBC 05/20/2023 0.1 Neutrophils Relative 05/20/2023 56.4 Lymphocytes Relative 05/20/2023 26.0 Monocytes Relative 05/20/2023 15.2 (H) Eosinophils Relative 05/20/2023 1.1 Basophils Relative 05/20/2023 1.3 Neutrophils Absolute 05/20/2023 3.1 Lymphocytes Absolute 05/20/2023 1.4 Monocytes Absolute 05/20/2023 0.8 Eosinophils Absolute 05/20/2023 0.1 Basophils Absolute 05/20/2023 0.1 SODIUM 05/20/2023 130 (L) POTASSIUM 05/20/2023 3.8 CHLORIDE 05/20/2023 92 (L) CARBON DIOXIDE 05/20/2023 21 (L) ANION GAP 05/20/2023 17 (H) UREA NITROGEN 05/20/2023 5 (L) CREATININE 05/20/2023 0.60 (L) GLUCOSE 05/20/2023 119 (H) CALCIUM 05/20/2023 9.0 AST (SGOT) 05/20/2023 123 (H) ALT 05/20/2023 140 (H) ALKALINE PHOSPHATASE 05/20/2023 104 ALBUMIN 05/20/2023 4.2 BILIRUBIN, TOTAL 05/20/2023 0.6 TOTAL PROTEIN 05/20/2023 7.4 eGFR 05/20/2023 >90.0 LIPASE 05/20/2023 230 TROPONIN I 05/20/2023 <0.012 Heart Rate 05/20/2023 97 QRSD Interval 05/20/2023 105 QT Interval 05/20/2023 381 QTC Interval 05/20/2023 484 P [place] 05/20/2023 78 QRS [place] 05/20/2023 75 T Wave [place] 05/20/2023 60 VA Interval 05/20/2023 154 Color, Urine 05/20/2023 Colorless Clarity, Urine 05/20/2023 Clear pH, Urine 05/20/2023 5.5 Leukocytes, Urine 05/20/2023 Negative Nitrite, Urine 05/20/2023 Negative Protein, Urine 05/20/2023 Negative Glucose, Urine 05/20/2023 Normal Bilirubin, Urine 05/20/2023 Negative Ketones, Urine 05/20/2023 Negative Urobilinogen, Urine 05/20/2023 Normal Blood, Urine 05/20/2023 Negative SPECIFIC GRAVITY OF URIN* 05/20/2023 1.003 (L) pH, Venous 05/20/2023 7.333 pCO2, Venous 05/20/2023 48.3 pO2, Venous 05/20/2023 53.3 HCO3, Venous 05/20/2023 25.6 Base Excess, Venous 05/20/2023 -1.0 SO2, Venous 05/20/2023 84.6 EKG Encounter Date: 05/20/23 ECG 12 lead Result Value Heart Rate 97 QRSD Interval 105 QT Interval 381 QTC Interval 484 P [place] 78 QRS [place] 75 T Wave [place] 60 VA Interval 154 Impression Sinus rhythm Consider left atrial enlargement Abnormal T, consider ischemia, anterior leads No previous ECG available for comparison Assessment/Plan and Medical Decision Making Etoh abuse He is a daily drinker and has drank heavily for about 20 years although sometimes he has been able to quit most recently after attending inpatient program last fall he was able to quit for a month. He strongly desires to quit He will be admitted provided with Ativan and phenobarbital hydration and addiction med consult for alcohol detoxification He admits to not eating very much recently he is nauseated does have appetite loss but he does not have any physical problems chewing or swallowing his food Since being admitted he has been able to tolerate liquids. And is trying to tolerate some solid food if unable to eat may need follow-up GI consult Laboratory values currently show slightly low sodium of 130 which is likely due to his alcohol intake and poor p.o. intake bicarb of 21 slight elevated anion gap of 17 which could be due to alcohol on board his lipase is normal his AST is slightly elevated at 123 and ALT of 140 hyponatremia As above low sodium likely due to poor p.o. intake and alcohol use will encourage better nutrition intake and cutting off on the alcohol will repeat sodium in the morning His symptoms of constant nausea could be related to this hyponatremia Nicotine abuse Nicotine patches will be ordered Neuropathy I will continue gabapentin 600 mg 3 times daily as verified on AP his PDMP History of GERD I will continue her Protonix he takes at home I discussed the need for admission with the emergency provider. -DVT prophylaxis: [x] Lovenox [] Heparin [] SCDs [x] Encourage ambulation [] Already on Anticoagulation [] Pharmocologic prophylaxis on hold to due risk bleed/procedure [] Low risk, ambulatory [] Both pharmacologic and mechanical contraindicated 05/21/2023 Maria De Jesus Hogan [id number] Any scheduled follow up appointments Extended Emergency Contact Information Primary Emergency Contact: [place] Mobile Relation: Spouse Portions of this note may be electronically transcribed. Please forward a copy of this H&P to the primary care physician. documented in this encounter [facility] 05-20-2023 Emergency department Note Patient placed on NRB while sleeping. SPO2 was dropping while asleep due to mouth breathing. Patient now at 97% Alpa Middleton RN 05/20/23 [id number] [facility] 05-20-2023 Emergency department [place] [facility] [place] Judy Higgins RN 05/20/232234 [facility] 05-20-2023 Emergency department Note Detox full per Dr Jennifer Higgins RN 05/20/232233 [facility] 05-20-2023 Physician Emergency department Note EMERGENCY DEPARTMENT ENCOUNTER Pt Name: Maria De Jesus Hogan Birthdate 1965 Date of evaluation: 05/20/2023 ED Provider: Scooter Luna MD CHIEF COMPLAINT Chief Complaint Patient presents with Alcohol Problem Pt. States he would like to do inpatient detox from alcohol. States he drinks 3-4 tall boys of beer per day. 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 HISTORY OF PRESENT ILLNESS (Location/Symptom, Timing/Onset, Context/Setting, Quality, Duration, Modifying Factors, Severity) Note limiting factors. I wore appropriate PPE for the entirety of this encounter. HPI Maria De Jesus Hogan is a 57 y.o. who presents to the emergency department with chief complaint of needing detox. Patient drinks heavily daily. He also notes he had nausea and vomiting for last month that is new he has had episodes of this in the past but is making it difficult to actually drink. No fevers diarrhea chest pain as well as shortness of breath but he smokes and is never been formally diagnosed with COPD but feels like he may have this. No other complaints Nursing Notes were reviewed. Limitations to history: Outside historians: REVIEW OF SYSTEMS Review of Systems Pertinent positives and negatives as per HPI. PAST MEDICAL HISTORY Past Medical History: Diagnosis Date Alcohol abuse Alcohol dependence with withdrawal (HCC) 08/31/2019 Alcohol intoxication without use disorder, uncomplicated (HCC) 10/01/2019 Alcohol use disorder 09/10/2022 Alcohol withdrawal syndrome with complication (HCC) 09/27/2021 Alcohol withdrawal, uncomplicated (HCC) 08/31/2019 Alcohol withdrawal, with unspecified complication (HCC) 10/02/2019 Alcohol withdrawal, with unspecified complication (HCC) 10/02/2019 Alcoholism (CMS/HCC) (HCC) Anxiety Arthritis Maria De Jesus Cerebral artery occlusion with cerebral infarction (HCC) Cerebrovascular disease Depression GERD (gastroesophageal reflux disease) Maria De Jesus Hypertension Insomnia SURGICAL HISTORY Past Surgical History: Procedure Laterality Date COLONOSCOPY 06/10/2020 EGD/Dr Madison/[facility] CYST REMOVAL face EGD (HISTORICAL) 07/23/2022 Dr. Estrella-[facility] SMALL INTESTINE SURGERY UPPER GASTROINTESTINAL ENDOSCOPY 09/27/2021 normal WISDOM TOOTH EXTRACTION CURRENT MEDICATIONS Previous Medications ALBUTEROL 108 (90 BASE) MCG/ACT INHALER Inhale 2 puffs every 6 hours as needed for wheezing or shortness of breath. CALCIPOTRIENE (DOVONEX) 0.005 % CREAM Apply topically 2 times daily. CLOBETASOL (TEMOVATE) 0.05 % CREAM Apply topically 2 times daily. GABAPENTIN (NEURONTIN) 600 MG TABLET Take 1 tablet (600 mg) by mouth 3 times daily. MELATONIN 5 MG TABLET Take 1 tablet (5 mg) by mouth Nightly. MULTIPLE VITAMINS TABLET Take 1 tablet by mouth daily. NICOTINE (NICODERM, STEP 2) 14 MG/24HR PATCH Place 1 patch on the skin daily. Do not start before October 23, 2022. NICOTINE POLACRILEX (COMMIT) 2 MG LOZENGE Dissolve 1 lozenge (2 mg) in the mouth every 2 hours as needed for smoking cessation (nicotine craving, urge to smoke). PANTOPRAZOLE (PROTONIX) 40 MG EC TABLET Take 1 tablet (40 mg) by mouth every morning (before breakfast). THIAMINE MONONITRATE (VITAMIN B1) 100 MG TABLET Take 1 tablet (100 mg) by mouth daily. ALLERGIES Bee venom, Nickel, and Tramadol FAMILY HISTORY Family History Problem Relation Name Age of Onset Depression Sister Maria De Jesus Hogan Other ([id number]) Sister Maria De Jesus Hogan agoraphobia Arthritis Sister Maria De Jesus Hogan Cancer Mother Maria De Jesus Hogan colon rectal cancer; dx after age 50 Other ([id number]) Mother Maria De Jesus Hogan alcoholism Alcohol abuse Mother Maria De Jesus Hogan Stroke Mother Maria De Jesus Hogan Other ([id number]) Father Maria De Jesus Hogan h/o rheumatic fever, cardiac arrest due to bee sting Hypertension Father Maria De Jesus Hogan SOCIAL HISTORY Social History Socioeconomic History Marital status: Tobacco Use Smoking status: Every Day Packs/day: 2 Types: Cigarettes Start date: 10/10/1985 Smokeless tobacco: Never Vaping Use Vaping Use: Never used Substance and Sexual Activity Alcohol use: Yes Comment: Detox home for a week 0 drinks 02/17/23 Drug use: No Sexual activity: Yes Partners: Female control/protection: Other Comment: live with Social Determinants of Health Financial Resource Strain: Low Risk (02/09/2023) Overall Financial Resource Strain (CARDIA) Difficulty of Paying Living Expenses: Not very hard Food Insecurity: No Food Insecurity (02/09/2023) Hunger Vital Sign Worried About Running Out of Food in the Last Year: Never true Ran Out of Food in the Last Year: Never true Transportation Needs: No Transportation Needs (02/08/2023) PRAPARE - Transportation Lack of Transportation (Medical): No Lack of Transportation (Non-Medical): No Physical Activity: Inactive (02/09/2023) Exercise Vital Sign Days of Exercise per Week: 0 days Minutes of Exercise per Session: 0 min Stress: Stress Concern Present (02/09/2023) [place] [employer] - Occupational Stress Questionnaire Feeling of Stress : Very much Social Connections: Moderately Isolated (02/09/2023) Social Connection and Isolation Panel [NHANES] Frequency of Communication with Friends and Family: More than three times a week Frequency of Social Gatherings with Friends and Family: More than three times a week Attends Synagogue Services: Never Active Member of Clubs or Organizations: No Attends Club or Organization Meetings: Never Marital Status: Intimate Partner Violence: Not At Risk (07/22/2022) Humiliation, Afraid, Rape, and Kick questionnaire Fear of Current or Ex-Partner: No Emotionally Abused: No Physically Abused: No Sexually Abused: No Housing Stability: Unknown (02/08/2023) Housing Stability Vital Sign Unable to Pay for Housing in the Last Year: No Unstable Housing in the Last Year: No SCREENINGS PHYSICAL EXAM ED Triage Vitals [05/20/231944] Temp Heart Rate Resp BP 36.6 C (97.9 F) (!) 117 18 (!) 158/111 SpO2 Temp Source Heart Rate Source Patient Position 95 % Temporal Monitor -- BP Location FiO2 (%) -- -- Physical Exam Vitals and nursing note reviewed. Constitutional: General: He is not in acute distress. Appearance: He is well-developed. HENT: Head: Normocephalic and atraumatic. Eyes: Conjunctiva/sclera: Conjunctivae normal. Cardiovascular: Rate and Rhythm: Regular rhythm. Tachycardia present. Pulmonary: Breath sounds: Wheezing present. Abdominal: General: There is distension. Palpations: Abdomen is soft. Tenderness: There is no abdominal tenderness. There is no guarding. Neurological: Mental Status: He is alert. Psychiatric: Mood and Affect: Mood normal. Behavior: Behavior normal. DIAGNOSTIC RESULTS Procedures/EKG: EKG was reviewed by myself. Physician EKG interpretation can be found in [facility] RADIOLOGY (Per Emergency Physician): Interpretation per the Radiologist below, if available at the time of this note: CT abdomen pelvis w contrast (Results Pending) XR chest 1 view (Results Pending) ED BEDSIDE ULTRASOUND: Performed by ED Physician - none LABS: Labs Reviewed CBC WITH AUTO DIFFERENTIAL COMPREHENSIVE METABOLIC PANEL LIPASE COMPLETE URINALYSIS WITH REFLEX TO CULTURE Narrative: The following orders were created for panel order Urinalysis Complete with reflex to Culture. Procedure Abnormality Status --------- ------ Complete Urinalysis[[id number]] Please view results for these tests on the individual orders. TROPONIN I COMPLETE URINALYSIS All other labs were within normal range or not returned as of this dictation. EMERGENCY DEPARTMENT COURSE and DIFFERENTIAL DIAGNOSIS/MDM: Vitals: Vitals: 05/20/23194405/20/23194605/20/231947 BP: (!) 158/111 Pulse: (!) 117 Resp: 18 Temp: 36.6 C (97.9 F) TempSrc: Temporal SpO2: 95% 95% Weight: 90.3 kg (199 lb) Height: 1.778 m (5' 10) Patient presenting seeking detox he also has some abdominal pain discomfort and distention as well as some cough and wheezing. Plan treat with DuoNebs check chest x-ray and cardiac enzymes to evaluate for cardiac ischemia but suspect he actually does have COPD flare. His abdominal exam is largely benign but it is distended he is having nausea and vomiting given he is [address] to rule out other dangerous pathology such as mass and obstruction if everything comes back normal we will attempt to control his withdrawal with Ativan fluids and likely admit to detox. Diagnoses as of 05/20/23 2302 Alcohol withdrawal syndrome, uncomplicated (HCC) Medications albuterol (2.5 MG/3ML) 0.083% nebulizer solution 2.5 mg (has no administration in time range) sodium chloride 0.9 % bolus 1,000 mL (has no administration in time range) LORazepam (Ativan) injection 2 mg (has no administration in time range) predniSONE (Deltasone) tablet 50 mg (has no administration in time range) REVAL: CRITICAL CARE TIME CONSULTS: None PROCEDURES: Unless otherwise noted below, none Procedures Patients symptoms are consistent with sepsis, severe sepsis, or septic shock (If yes use .sepsiscoremeasure): no FINAL IMPRESSION No diagnosis found. DISPOSITION PATIENT REFERRED TO: No follow-up provider specified. DISCHARGE MEDICATIONS: New Prescriptions No medications on file (Comment: Please note this report has been produced using speech recognition software and may contain errors related to that system including errors in grammar, punctuation, and spelling, as well as words and phrases that may be inappropriate. If there are any questions or concerns please feel free to contact the dictating provider for clarification.) Scooter Luna MD (electronically signed) Emergency Medicine Provider Scooter Luna MD 05/20/232025 [facility] 04-24-2023 Telephone encounter Note Last OV:12/26/22 Scheduled:n/a [facility] 04-24-2023 Miscellaneous Notes Last OV:12/26/22 Scheduled:n/a documented in this encounter [facility] 03-19-2023 Emergency department Note EMERGENCY DEPARTMENT ENCOUNTER Pt Name: Maria De Jesus Hogan Birthdate 1965 Date of evaluation: 03/19/2023 ED Provider: Catalino Waddell MD CHIEF COMPLAINT Chief Complaint Patient presents with Finger Injury Left middle finger pain swelling & decreased ROM since slamming in the door this morning HISTORY OF PRESENT ILLNESS (Location/Symptom, Timing/Onset, Context/Setting, Quality, Duration, Modifying Factors, Severity) Note limiting factors. I wore appropriate PPE for the entirety of this encounter. HPI Maria De Jesus Hogan is a 57 y.o. who presents to the emergency department with chief complaint of left middle finger injury. Patient accidentally slammed his finger in a car door this morning. States its painful and swollen. He has a slight scrape. His tetanus is up-to-date. He has normal movement sensation but is painful. He is right-handed. No prior surgeries on the left hand denies any pain to the left wrist or arm. Has not taken anything for pain. Nursing Notes were reviewed. Limitations to history: None Outside historians: None REVIEW OF SYSTEMS Review of Systems HENT: Negative for trouble swallowing. Eyes: Negative for visual disturbance. Respiratory: Negative for shortness of breath. Cardiovascular: Negative for chest pain. Gastrointestinal: Negative for vomiting. Musculoskeletal: Positive for arthralgias and joint swelling. Negative for back pain. Skin: Negative for color change, rash and wound. Neurological: Negative for syncope. All other systems reviewed and are negative. Pertinent positives and negatives as per HPI. PAST MEDICAL HISTORY Past Medical History: Diagnosis Date Alcohol abuse Alcohol dependence with withdrawal (HCC) 08/31/2019 Alcohol intoxication without use disorder, uncomplicated (HCC) 10/01/2019 Alcohol use disorder 09/10/2022 Alcohol withdrawal syndrome with complication (HCC) 09/27/2021 Alcohol withdrawal, uncomplicated (HCC) 08/31/2019 Alcohol withdrawal, with unspecified complication (HCC) 10/02/2019 Alcohol withdrawal, with unspecified complication (HCC) 10/02/2019 Alcoholism (CMS/HCC) (HCC) Anxiety Arthritis Maria De Jesus Cerebral artery occlusion with cerebral infarction (HCC) Cerebrovascular disease Depression GERD (gastroesophageal reflux disease) Maria De Jesus Hypertension Insomnia SURGICAL HISTORY Past Surgical History: Procedure Laterality Date COLONOSCOPY 06/10/2020 EGD/Dr Madison/AMANDA CYST REMOVAL face EGD (HISTORICAL) 07/23/2022 Dr. Estrella-[facility] SMALL INTESTINE SURGERY UPPER GASTROINTESTINAL ENDOSCOPY 09/27/2021 normal WISDOM TOOTH EXTRACTION CURRENT MEDICATIONS Previous Medications ALBUTEROL 108 (90 BASE) MCG/ACT INHALER Inhale 2 puffs every 6 hours as needed for wheezing or shortness of breath. CALCIPOTRIENE (DOVONEX) 0.005 % CREAM Apply topically 2 times daily. CLOBETASOL (TEMOVATE) 0.05 % CREAM Apply topically 2 times daily. GABAPENTIN (NEURONTIN) 600 MG TABLET Take 1 tablet (600 mg) by mouth 3 times daily. MELATONIN 5 MG TABLET Take 1 tablet (5 mg) by mouth Nightly. MULTIPLE VITAMINS TABLET Take 1 tablet by mouth daily. NICOTINE (NICODERM, STEP 2) 14 MG/24HR PATCH Place 1 patch on the skin daily. Do not start before October 23, 2022. NICOTINE POLACRILEX (COMMIT) 2 MG LOZENGE Dissolve 1 lozenge (2 mg) in the mouth every 2 hours as needed for smoking cessation (nicotine craving, urge to smoke). PANTOPRAZOLE (PROTONIX) 40 MG EC TABLET Take 1 tablet (40 mg) by mouth every morning (before breakfast). THIAMINE MONONITRATE (VITAMIN B1) 100 MG TABLET Take 1 tablet (100 mg) by mouth daily. ALLERGIES Bee venom, Nickel, and Tramadol FAMILY HISTORY Family History Problem Relation Name Age of Onset Depression Sister Maria De Jesus Hogan Other ([id number]) Sister Maria De Jesus Hogan agoraphobia Arthritis Sister Maria De Jesus Hogan Cancer Mother Maria De Jesus Hogan colon rectal cancer; dx after age 50 Other ([id number]) Mother Maria eD Jesus Hogan alcoholism Alcohol abuse Mother Maria De Jesus Hogan Stroke Mother Maria De Jesus Hogan Other ([id number]) Father Maria De Jesus Hogan h/o rheumatic fever, cardiac arrest due to bee sting Hypertension Father Maria De Jesus Hogan SOCIAL HISTORY Social History Socioeconomic History Marital status: Tobacco Use Smoking status: Every Day Packs/day: 2 Types: Cigarettes Start date: 10/10/1985 Smokeless tobacco: Never Vaping Use Vaping Use: Never used Substance and Sexual Activity Alcohol use: Yes Comment: Detox home for a week 0 drinks 02/17/23 Drug use: No Sexual activity: Yes Partners: Female control/protection: Other Comment: live with Social Determinants of Health Financial Resource Strain: Low Risk (02/09/2023) Overall Financial Resource Strain (CARDIA) Difficulty of Paying Living Expenses: Not very hard Food Insecurity: No Food Insecurity (02/09/2023) Hunger Vital Sign Worried About Running Out of Food in the Last Year: Never true Ran Out of Food in the Last Year: Never true Transportation Needs: No Transportation Needs (02/08/2023) PRAPARE - Transportation Lack of Transportation (Medical): No Lack of Transportation (Non-Medical): No Physical Activity: Inactive (02/09/2023) Exercise Vital Sign Days of Exercise per Week: 0 days Minutes of Exercise per Session: 0 min Stress: Stress Concern Present (02/09/2023) [place] [employer] - Occupational Stress Questionnaire Feeling of Stress : Very much Social Connections: Moderately Isolated (02/09/2023) Social Connection and Isolation Panel [NHANES] Frequency of Communication with Friends and Family: More than three times a week Frequency of Social Gatherings with Friends and Family: More than three times a week Attends Synagogue Services: Never Active Member of Clubs or Organizations: No Attends Club or Organization Meetings: Never Marital Status: Intimate Partner Violence: Not At Risk (07/22/2022) Humiliation, Afraid, Rape, and Kick questionnaire Fear of Current or Ex-Partner: No Emotionally Abused: No Physically Abused: No Sexually Abused: No Housing Stability: Unknown (02/08/2023) Housing Stability Vital Sign Unable to Pay for Housing in the Last Year: No Unstable Housing in the Last Year: No SCREENINGS PHYSICAL EXAM ED Triage Vitals [03/19/23 1021] Temp Heart Rate Resp BP 36.8 C (98.2 F) (!) 114 16 (!) 141/82 SpO2 Temp Source Heart Rate Source Patient Position 95 % Oral -- -- BP Location FiO2 (%) -- -- Physical Exam Vitals and nursing note reviewed. Constitutional: General: He is not in acute distress. Appearance: He is well-developed. HENT: Head: Normocephalic and atraumatic. Eyes: Conjunctiva/sclera: Conjunctivae normal. Cardiovascular: Rate and Rhythm: Normal rate. Pulmonary: Effort: Pulmonary effort is normal. No respiratory distress. Musculoskeletal: General: Swelling and tenderness present. No deformity. Left hand: Swelling, tenderness and bony tenderness present. Decreased range of motion. Normal strength. Normal sensation. There is no disruption of two-point discrimination. Normal capillary refill. Cervical back: Neck supple. Comments: Swelling with tenderness to the left third finger distal phalanx there is a superficial abrasion dorsal aspect, there is no nailbed hematoma or laceration, capillary refill normal sensation movement normal. Skin: General: Skin is warm and dry. Capillary Refill: Capillary refill takes less than 2 seconds. Neurological: Mental Status: He is alert. Psychiatric: Mood and Affect: Mood normal. DIAGNOSTIC RESULTS Procedures/EKG: EKG was reviewed by myself. Physician EKG interpretation can be found in [facility] RADIOLOGY (Per Emergency Physician): No acute third digit fracture Interpretation per the Radiologist below, if available at the time of this note: XR hand 3+ views left Final Result No acute fracture or dislocation identified. Report Dictated on Electronically Signed By: Nate De La O MD Electronically Signed Date/Time: 03/19/2023 11:04 AM EST ED BEDSIDE ULTRASOUND: Performed by ED Physician - none LABS: Labs Reviewed - No data to display All other labs were within normal range or not returned as of this dictation. EMERGENCY DEPARTMENT COURSE and DIFFERENTIAL DIAGNOSIS/MDM: Vitals: Vitals: 03/19/23 1021 BP: (!) 141/82 Pulse: (!) 114 Resp: 16 Temp: 36.8 C (98.2 F) TempSrc: Oral SpO2: 95% Weight: 97.5 kg (215 lb) Height: 1.803 m (5' 11) 57-year-old male here for left distal third finger injury. Differential includes contusion fracture. Clinically not dislocated. Neurovascularly intact. Plan for x-ray ice Gisela. Diagnoses as of 03/19/23 1115 Contusion of left middle finger without damage to nail, initial encounter The patient presented with chief complaint of finger pain. The differential diagnosis associated with this patient's presentation includes above. Our workup consisted of ordering/reviewing: above. Patient is in agreement with this plan. Medications ibuprofen tablet 600 mg (600 mg Oral Given 03/19/23 1044) REVAL: Patient given finger splint for comfort and dinesh taped. Return precautions given recommend RICE instructions. CRITICAL CARE TIME None CONSULTS: None PROCEDURES: Unless otherwise noted below, none Procedures Patients symptoms are consistent with sepsis, severe sepsis, or septic shock (If yes use .sepsiscoremeasure): no FINAL IMPRESSION 1. Contusion of left middle finger without damage to nail, initial encounter DISPOSITION Discharge 03/19/2023 11:14:56 AM PATIENT REFERRED TO: Lynda Rasheed MD [address] [facility] [address] [facility] [address] As needed DISCHARGE MEDICATIONS: New Prescriptions No medications on file (Comment: Please note this report has been produced using speech recognition software and may contain errors related to that system including errors in grammar, punctuation, and spelling, as well as words and phrases that may be inappropriate. If there are any questions or concerns please feel free to contact the dictating provider for clarification.) Catalino Waddell MD (electronically signed) Emergency Medicine Provider Catalino Waddell MD 03/19/23 1116 documented in this encounter [facility] 03-19-2023 Physician Emergency department Note EMERGENCY DEPARTMENT ENCOUNTER Pt Name: Maria De Jesus Hogan Birthdate 1965 Date of evaluation: 03/19/2023 ED Provider: Catalino Waddell MD CHIEF COMPLAINT Chief Complaint Patient presents with Finger Injury Left middle finger pain swelling & decreased ROM since slamming in the door this morning HISTORY OF PRESENT ILLNESS (Location/Symptom, Timing/Onset, Context/Setting, Quality, Duration, Modifying Factors, Severity) Note limiting factors. I wore appropriate PPE for the entirety of this encounter. HPI Maria De Jesus Hogan is a 57 y.o. who presents to the emergency department with chief complaint of left middle finger injury. Patient accidentally slammed his finger in a car door this morning. States its painful and swollen. He has a slight scrape. His tetanus is up-to-date. He has normal movement sensation but is painful. He is right-handed. No prior surgeries on the left hand denies any pain to the left wrist or arm. Has not taken anything for pain. Nursing Notes were reviewed. Limitations to history: None Outside historians: None REVIEW OF SYSTEMS Review of Systems HENT: Negative for trouble swallowing. Eyes: Negative for visual disturbance. Respiratory: Negative for shortness of breath. Cardiovascular: Negative for chest pain. Gastrointestinal: Negative for vomiting. Musculoskeletal: Positive for arthralgias and joint swelling. Negative for back pain. Skin: Negative for color change, rash and wound. Neurological: Negative for syncope. All other systems reviewed and are negative. Pertinent positives and negatives as per HPI. PAST MEDICAL HISTORY Past Medical History: Diagnosis Date Alcohol abuse Alcohol dependence with withdrawal (HCC) 08/31/2019 Alcohol intoxication without use disorder, uncomplicated (HCC) 10/01/2019 Alcohol use disorder 09/10/2022 Alcohol withdrawal syndrome with complication (HCC) 09/27/2021 Alcohol withdrawal, uncomplicated (HCC) 08/31/2019 Alcohol withdrawal, with unspecified complication (HCC) 10/02/2019 Alcohol withdrawal, with unspecified complication (HCC) 10/02/2019 Alcoholism (CMS/HCC) (HCC) Anxiety Arthritis Maria De Jesus Cerebral artery occlusion with cerebral infarction (HCC) Cerebrovascular disease Depression GERD (gastroesophageal reflux disease) Maria De Jesus Hypertension Insomnia SURGICAL HISTORY Past Surgical History: Procedure Laterality Date COLONOSCOPY 06/10/2020 EGD/Dr Madison/[facility] CYST REMOVAL face EGD (HISTORICAL) 07/23/2022 Dr. Estrella-[facility] SMALL INTESTINE SURGERY UPPER GASTROINTESTINAL ENDOSCOPY 09/27/2021 normal WISDOM TOOTH EXTRACTION CURRENT MEDICATIONS Previous Medications ALBUTEROL 108 (90 BASE) MCG/ACT INHALER Inhale 2 puffs every 6 hours as needed for wheezing or shortness of breath. CALCIPOTRIENE (DOVONEX) 0.005 % CREAM Apply topically 2 times daily. CLOBETASOL (TEMOVATE) 0.05 % CREAM Apply topically 2 times daily. GABAPENTIN (NEURONTIN) 600 MG TABLET Take 1 tablet (600 mg) by mouth 3 times daily. MELATONIN 5 MG TABLET Take 1 tablet (5 mg) by mouth Nightly. MULTIPLE VITAMINS TABLET Take 1 tablet by mouth daily. NICOTINE (NICODERM, STEP 2) 14 MG/24HR PATCH Place 1 patch on the skin daily. Do not start before October 23, 2022. NICOTINE POLACRILEX (COMMIT) 2 MG LOZENGE Dissolve 1 lozenge (2 mg) in the mouth every 2 hours as needed for smoking cessation (nicotine craving, urge to smoke). PANTOPRAZOLE (PROTONIX) 40 MG EC TABLET Take 1 tablet (40 mg) by mouth every morning (before breakfast). THIAMINE MONONITRATE (VITAMIN B1) 100 MG TABLET Take 1 tablet (100 mg) by mouth daily. ALLERGIES Bee venom, Nickel, and Tramadol FAMILY HISTORY Family History Problem Relation Name Age of Onset Depression Sister Maria De Jesus Hogan Other ([id number]) Sister Maria De Jesus Hogan agoraphobia Arthritis Sister Maria De Jesus Hogan Cancer Mother Maria De Jesus Hogan colon rectal cancer; dx after age 50 Other ([id number]) Mother Maria De Jesus Hogan alcoholism Alcohol abuse Mother Maria De Jesus Hogan Stroke Mother Maria De Jesus Hogan Other ([phone]) Father Maria De Jesus Hogan h/o rheumatic fever, cardiac arrest due to bee sting Hypertension Father Maria De Jesus Hogan SOCIAL HISTORY Social History Socioeconomic History Marital status: Tobacco Use Smoking status: Every Day Packs/day: 2 Types: Cigarettes Start date: 10/10/1985 Smokeless tobacco: Never Vaping Use Vaping Use: Never used Substance and Sexual Activity Alcohol use: Yes Comment: Detox home for a week 0 drinks 02/17/23 Drug use: No Sexual activity: Yes Partners: Female control/protection: Other Comment: live with Social Determinants of Health Financial Resource Strain: Low Risk (02/09/2023) Overall Financial Resource Strain (CARDIA) Difficulty of Paying Living Expenses: Not very hard Food Insecurity: No Food Insecurity (02/09/2023) Hunger Vital Sign Worried About Running Out of Food in the Last Year: Never true Ran Out of Food in the Last Year: Never true Transportation Needs: No Transportation Needs (02/08/2023) PRAPARE - Transportation Lack of Transportation (Medical): No Lack of Transportation (Non-Medical): No Physical Activity: Inactive (02/09/2023) Exercise Vital Sign Days of Exercise per Week: 0 days Minutes of Exercise per Session: 0 min Stress: Stress Concern Present (02/09/2023) [place] [employer] - Occupational Stress Questionnaire Feeling of Stress : Very much Social Connections: Moderately Isolated (02/09/2023) Social Connection and Isolation Panel [NHANES] Frequency of Communication with Friends and Family: More than three times a week Frequency of Social Gatherings with Friends and Family: More than three times a week Attends Synagogue Services: Never Active Member of Clubs or Organizations: No Attends Club or Organization Meetings: Never Marital Status: Intimate Partner Violence: Not At Risk (07/22/2022) Humiliation, Afraid, Rape, and Kick questionnaire Fear of Current or Ex-Partner: No Emotionally Abused: No Physically Abused: No Sexually Abused: No Housing Stability: Unknown (02/08/2023) Housing Stability Vital Sign Unable to Pay for Housing in the Last Year: No Unstable Housing in the Last Year: No SCREENINGS PHYSICAL EXAM ED Triage Vitals [03/19/23 1021] Temp Heart Rate Resp BP 36.8 C (98.2 F) (!) 114 16 (!) 141/82 SpO2 Temp Source Heart Rate Source Patient Position 95 % Oral -- -- BP Location FiO2 (%) -- -- Physical Exam Vitals and nursing note reviewed. Constitutional: General: He is not in acute distress. Appearance: He is well-developed. HENT: Head: Normocephalic and atraumatic. Eyes: Conjunctiva/sclera: Conjunctivae normal. Cardiovascular: Rate and Rhythm: Normal rate. Pulmonary: Effort: Pulmonary effort is normal. No respiratory distress. Musculoskeletal: General: Swelling and tenderness present. No deformity. Left hand: Swelling, tenderness and bony tenderness present. Decreased range of motion. Normal strength. Normal sensation. There is no disruption of two-point discrimination. Normal capillary refill. Cervical back: Neck supple. Comments: Swelling with tenderness to the left third finger distal phalanx there is a superficial abrasion dorsal aspect, there is no nailbed hematoma or laceration, capillary refill normal sensation movement normal. Skin: General: Skin is warm and dry. Capillary Refill: Capillary refill takes less than 2 seconds. Neurological: Mental Status: He is alert. Psychiatric: Mood and Affect: Mood normal. DIAGNOSTIC RESULTS Procedures/EKG: EKG was reviewed by myself. Physician EKG interpretation can be found in [facility] RADIOLOGY (Per Emergency Physician): No acute third digit fracture Interpretation per the Radiologist below, if available at the time of this note: XR hand 3+ views left Final Result No acute fracture or dislocation identified. Report Dictated on Electronically Signed By: Nate De La O MD Electronically Signed Date/Time: 03/19/2023 11:04 AM EST ED BEDSIDE ULTRASOUND: Performed by ED Physician - none LABS: Labs Reviewed - No data to display All other labs were within normal range or not returned as of this dictation. EMERGENCY DEPARTMENT COURSE and DIFFERENTIAL DIAGNOSIS/MDM: Vitals: Vitals: 03/19/23 1021 BP: (!) 141/82 Pulse: (!) 114 Resp: 16 Temp: 36.8 C (98.2 F) TempSrc: Oral SpO2: 95% Weight: 97.5 kg (215 lb) Height: 1.803 m (5' 11) 57-year-old male here for left distal third finger injury. Differential includes contusion fracture. Clinically not dislocated. Neurovascularly intact. Plan for x-ray ice Motrin. Diagnoses as of 03/19/23 1115 Contusion of left middle finger without damage to nail, initial encounter The patient presented with chief complaint of finger pain. The differential diagnosis associated with this patient's presentation includes above. Our workup consisted of ordering/reviewing: above. Patient is in agreement with this plan. Medications ibuprofen tablet 600 mg (600 mg Oral Given 03/19/23 1044) REVAL: Patient given finger splint for comfort and dinesh taped. Return precautions given recommend RICE instructions. CRITICAL CARE TIME None CONSULTS: None PROCEDURES: Unless otherwise noted below, none Procedures Patients symptoms are consistent with sepsis, severe sepsis, or septic shock (If yes use .sepsiscoremeasure): no FINAL IMPRESSION 1. Contusion of left middle finger without damage to nail, initial encounter DISPOSITION Discharge 03/19/2023 11:14:56 AM PATIENT REFERRED TO: Lynda Rasheed MD [address] [place] [address] [address] [facility] [address] As needed DISCHARGE MEDICATIONS: New Prescriptions No medications on file (Comment: Please note this report has been produced using speech recognition software and may contain errors related to that system including errors in grammar, punctuation, and spelling, as well as words and phrases that may be inappropriate. If there are any questions or concerns please feel free to contact the dictating provider for clarification.) Catalino Waddell MD (electronically signed) Emergency Medicine Provider Catalino Waddell MD 03/19/23 1116 [facility] 02-18-2023 Hospital Discharge instructions Harjinder Darnell MD - 02/18/2023 7:59 AM EST Follow up with a dentist as soon as possible The following attachments cannot be sent through [facility] Everywhere.Tooth Abscess ED ([place])documented in this encounter [facility] 02-18-2023 Emergency department Note Pt ambulatory to ED3 with c/o facial swelling. Pt was seen at this ED yesterday morning for dental pain and was prescribed ibuprofen. He states the ibuprofen has been helping with the pain, but he woke today at 0245 and noted the swelling. Last ibuprofen was 0400. Pain at present rated 2/10. Pt is A&Ox3, respirations even and unlabored, skin warm and dry, no distress noted. +left sided facial swelling noted. EMERGENCY DEPARTMENT ENCOUNTER Pt Name: Maria De Jesus Hogan Birthdate 1965 Date of evaluation: 02/18/2023 ED Provider: Harjinder Darnell MD CHIEF COMPLAINT Chief Complaint Patient presents with Oral Swelling History from patient HISTORY OF PRESENT ILLNESS (Location/Symptom, Timing/Onset, Context/Setting, Quality, Duration, Modifying Factors, Severity) Note limiting factors. I wore appropriate PPE for the entirety of this encounter. HPI Maria De Jesus Hogan is a 57 y.o. who presents to the emergency department complaining of sided facial swelling. Patient has a history of dental problems and was seen yesterday for dental pain. He returns today with swelling over his left maxillary area. No injury. Not there yesterday. No fever. No drooling. No trouble swallowing. Has not been able to see the dentist but will call later today [Saturday]. PCP also not available this weekend. No other complaint. Nursing Notes were reviewed. Limitations to history: None Outside historians: None REVIEW OF SYSTEMS Review of Systems Constitutional: Negative for fever. HENT: Positive for dental problem and facial swelling. Negative for drooling, trouble swallowing and voice change. Eyes: Negative for visual disturbance. Respiratory: Negative for shortness of breath, wheezing and stridor. Cardiovascular: Negative for chest pain. Gastrointestinal: Negative for abdominal pain. Genitourinary: Negative for difficulty urinating. Musculoskeletal: Negative for back pain and neck pain. Skin: Negative for rash. Neurological: Negative for headaches. Psychiatric/Behavioral: Negative for self-injury. Pertinent positives and negatives as per HPI PAST MEDICAL HISTORY Past Medical History: Diagnosis Date Alcohol abuse Alcohol dependence with withdrawal (HCC) 08/31/2019 Alcohol intoxication without use disorder, uncomplicated (HCC) 10/01/2019 Alcohol use disorder 09/10/2022 Alcohol withdrawal syndrome with complication (HCC) 09/27/2021 Alcohol withdrawal, uncomplicated (HCC) 08/31/2019 Alcohol withdrawal, with unspecified complication (HCC) 10/02/2019 Alcohol withdrawal, with unspecified complication (HCC) 10/02/2019 Alcoholism (CMS/HCC) (HCC) Anxiety Arthritis Maria De Jesus Cerebral artery occlusion with cerebral infarction (HCC) Cerebrovascular disease Depression GERD (gastroesophageal reflux disease) Maria De Jesus Hypertension Insomnia SURGICAL HISTORY Past Surgical History: Procedure Laterality Date COLONOSCOPY 06/10/2020 EGD/Dr Madison/[facility] REMOVAL face EGD (HISTORICAL) 07/23/2022 Dr. Estrella-[facility] SMALL INTESTINE SURGERY UPPER GASTROINTESTINAL ENDOSCOPY 09/27/2021 normal WISDOM TOOTH EXTRACTION CURRENT MEDICATIONS Previous Medications ALBUTEROL 108 (90 BASE) MCG/ACT INHALER Inhale 2 puffs every 6 hours as needed for wheezing or shortness of breath. CALCIPOTRIENE (DOVONEX) 0.005 % CREAM Apply topically 2 times daily. CLOBETASOL (TEMOVATE) 0.05 % CREAM Apply topically 2 times daily. GABAPENTIN (NEURONTIN) 600 MG TABLET Take 1 tablet (600 mg) by mouth 3 times daily. IBUPROFEN 600 MG TABLET Take 1 tablet (600 mg) by mouth 4 times daily as needed for mild pain (1-3) for up to 7 days. MELATONIN 5 MG TABLET Take 1 tablet (5 mg) by mouth Nightly. MULTIPLE VITAMINS TABLET Take 1 tablet by mouth daily. NICOTINE (NICODERM, STEP 2) 14 MG/24HR PATCH Place 1 patch on the skin daily. Do not start before October 23, 2022. NICOTINE POLACRILEX (COMMIT) 2 MG LOZENGE Dissolve 1 lozenge (2 mg) in the mouth every 2 hours as needed for smoking cessation (nicotine craving, urge to smoke). PANTOPRAZOLE (PROTONIX) 40 MG EC TABLET Take 1 tablet (40 mg) by mouth every morning (before breakfast). THIAMINE MONONITRATE (VITAMIN B1) 100 MG TABLET Take 1 tablet (100 mg) by mouth daily. ALLERGIES Bee venom, Nickel, and Tramadol FAMILY HISTORY Family History Problem Relation Name Age of Onset Depression Sister Maria De Jesus Hogan Other ([id number]) Sister Maria De Jesus Hogan agoraphobia Arthritis Sister Maria De Jesus Hogan Cancer Mother Maria De Jesus Hogan colon rectal cancer; dx after age 50 Other ([id number]) Mother Maria De Jesus Hogan alcoholism Alcohol abuse Mother Maria De Jesus Hogan Stroke Mother Maria De Jesus Hogan Other ([id number]) Father Maria De Jesus Hogan h/o rheumatic fever, cardiac arrest due to bee sting Hypertension Father Maria De Jesus Hogan SOCIAL HISTORY Social History Socioeconomic History Marital status: Tobacco Use Smoking status: Every Day Packs/day: 2 Types: Cigarettes Start date: 10/10/1985 Smokeless tobacco: Never Vaping Use Vaping Use: Never used Substance and Sexual Activity Alcohol use: Yes Comment: Detox home for a week 0 drinks 02/17/23 Drug use: No Sexual activity: Yes Partners: Female control/protection: Other Comment: live with Social Determinants of Health Financial Resource Strain: Low Risk (02/09/2023) Overall Financial Resource Strain (CARDIA) Difficulty of Paying Living Expenses: Not very hard Food Insecurity: No Food Insecurity (02/09/2023) Hunger Vital Sign Worried About Running Out of Food in the Last Year: Never true Ran Out of Food in the Last Year: Never true Transportation Needs: No Transportation Needs (02/08/2023) PRAPARE - Transportation Lack of Transportation (Medical): No Lack of Transportation (Non-Medical): No Physical Activity: Inactive (02/09/2023) Exercise Vital Sign Days of Exercise per Week: 0 days Minutes of Exercise per Session: 0 min Stress: Stress Concern Present (02/09/2023) [place] [employer] - Occupational Stress Questionnaire Feeling of Stress : Very much Social Connections: Moderately Isolated (02/09/2023) Social Connection and Isolation Panel [NHANES] Frequency of Communication with Friends and Family: More than three times a week Frequency of Social Gatherings with Friends and Family: More than three times a week Attends Synagogue Services: Never Active Member of Clubs or Organizations: No Attends Club or Organization Meetings: Never Marital Status: Intimate Partner Violence: Not At Risk (07/22/2022) Humiliation, Afraid, Rape, and Kick questionnaire Fear of Current or Ex-Partner: No Emotionally Abused: No Physically Abused: No Sexually Abused: No Housing Stability: Unknown (02/08/2023) Housing Stability Vital Sign Unable to Pay for Housing in the Last Year: No Unstable Housing in the Last Year: No SCREENINGS PHYSICAL EXAM ED Triage Vitals Temp Pulse Resp BP -- -- -- -- SpO2 Temp src Heart Rate Source Patient Position -- -- -- -- BP Location FiO2 (%) -- -- Physical Exam Constitutional: Appearance: He is not ill-appearing. Cardiovascular: Rate and Rhythm: Normal rate. Pulmonary: Effort: Pulmonary effort is normal. Musculoskeletal: General: Normal range of motion. Cervical back: Normal range of motion. Skin: General: Skin is warm and dry. Capillary Refill: Capillary refill takes less than 2 seconds. Neurological: General: No focal deficit present. Mental Status: He is alert. Not febrile not toxic Lungs no wheezes head swollen left maxilla Mouth - multiple carious teeth, airway patent, no tongue elevation, no stridor, no neck edema or crepitance EMERGENCY DEPARTMENT COURSE and DIFFERENTIAL DIAGNOSIS/MDM: Vitals: Vitals: 02/18/23 0750 BP: (!) 164/100 Pulse: 93 Resp: 16 Temp: 36.6 C (97.8 F) TempSrc: Temporal SpO2: 99% Medications - No data to display Medical Decision Making and ED Course The patient presented with a chief complaint of left-sided facial swelling. The differential diagnosis associated with this patient's presentation includes injury dental abscess sinusitis. Our workup consisted of ordering/reviewing history and physical exam which is not consistent with injury or sinusitis but is consistent with an infection secondary to his dental problem. Patient aware that he will need dental follow-up and will pursue that this morning. No evidence of airway compromise or Ludewig's angina. Patient agrees with symptomatic treatment and dental and PCP follow-up as an outpatient. Diagnostic tests and medications considered but not ordered: With patent so no indication for CT imaging to assess for airway Chronic conditions impacting care: History of substance abuse which may impair his immune system Social determinants of health affecting care: His Medicaid insurance makes finding a dentist we will treat him difficult Consideration of hospitalization or de-escalation of care: No evidence of airway compromise so does not meet criteria for hospitalization FINAL IMPRESSION 1. Dental abscess DISPOSITION Discharge 02/18/2023 07:58:26 AM PATIENT REFERRED TO: Lynda Rasheed MD [address] [place] [address] [address] [facility] [address] as previously scheduled DISCHARGE MEDICATIONS: New Prescriptions PENICILLIN V (VEETID) 250 MG TABLET Take 1 tablet (250 mg) by mouth in the morning and 1 tablet (250 mg) at noon and 1 tablet (250 mg) in the evening and 1 tablet (250 mg) before bedtime. Do all this for 7 days. (Comment: Please note this report has been produced using speech recognition software and may contain errors related to that system including errors in grammar, punctuation, and spelling, as well as words and phrases that may be inappropriate. If there are any questions or concerns please feel free to contact the dictating provider for clarification.) Harjinder Darnell MD (electronically signed) Emergency Medicine Provider Harjinder Darnell MD 02/18/23 1009 documented in this encounter [facility] 02-18-2023 Emergency department Triage note Pt ambulatory to ED3 with c/o facial swelling. Pt was seen at this ED yesterday morning for dental pain and was prescribed ibuprofen. He states the ibuprofen has been helping with the pain, but he woke today at 0245 and noted the swelling. Last ibuprofen was 0400. Pain at present rated 2/10. Pt is A&Ox3, respirations even and unlabored, skin warm and dry, no distress noted. +left sided facial swelling noted. [facility] 02-18-2023 Physician Emergency department Note EMERGENCY DEPARTMENT ENCOUNTER Pt Name: Maria De Jesus Hogna Birthdate 1965 Date of evaluation: 02/18/2023 ED Provider: Harjinder Darnell MD CHIEF COMPLAINT Chief Complaint Patient presents with Oral Swelling History from patient HISTORY OF PRESENT ILLNESS (Location/Symptom, Timing/Onset, Context/Setting, Quality, Duration, Modifying Factors, Severity) Note limiting factors. I wore appropriate PPE for the entirety of this encounter. HPI Maria De Jesus Hogan is a 57 y.o. who presents to the emergency department complaining of sided facial swelling. Patient has a history of dental problems and was seen yesterday for dental pain. He returns today with swelling over his left maxillary area. No injury. Not there yesterday. No fever. No drooling. No trouble swallowing. Has not been able to see the dentist but will call later today [Saturday]. PCP also not available this weekend. No other complaint. Nursing Notes were reviewed. Limitations to history: None Outside historians: None REVIEW OF SYSTEMS Review of Systems Constitutional: Negative for fever. HENT: Positive for dental problem and facial swelling. Negative for drooling, trouble swallowing and voice change. Eyes: Negative for visual disturbance. Respiratory: Negative for shortness of breath, wheezing and stridor. Cardiovascular: Negative for chest pain. Gastrointestinal: Negative for abdominal pain. Genitourinary: Negative for difficulty urinating. Musculoskeletal: Negative for back pain and neck pain. Skin: Negative for rash. Neurological: Negative for headaches. Psychiatric/Behavioral: Negative for self-injury. Pertinent positives and negatives as per HPI PAST MEDICAL HISTORY Past Medical History: Diagnosis Date Alcohol abuse Alcohol dependence with withdrawal (HCC) 08/31/2019 Alcohol intoxication without use disorder, uncomplicated (HCC) 10/01/2019 Alcohol use disorder 09/10/2022 Alcohol withdrawal syndrome with complication (HCC) 09/27/2021 Alcohol withdrawal, uncomplicated (HCC) 08/31/2019 Alcohol withdrawal, with unspecified complication (HCC) 10/02/2019 Alcohol withdrawal, with unspecified complication (HCC) 10/02/2019 Alcoholism (CMS/HCC) (HCC) Anxiety Arthritis Maria De Jesus Cerebral artery occlusion with cerebral infarction (HCC) Cerebrovascular disease Depression GERD (gastroesophageal reflux disease) Maria De Jesus Hypertension Insomnia SURGICAL HISTORY Past Surgical History: Procedure Laterality Date COLONOSCOPY 06/10/2020 EGD/Dr Madison/AMANDA CYST REMOVAL face EGD (HISTORICAL) 07/23/2022 Dr. Estrella-[facility] SMALL INTESTINE SURGERY UPPER GASTROINTESTINAL ENDOSCOPY 09/27/2021 normal WISDOM TOOTH EXTRACTION CURRENT MEDICATIONS Previous Medications ALBUTEROL 108 (90 BASE) MCG/ACT INHALER Inhale 2 puffs every 6 hours as needed for wheezing or shortness of breath. CALCIPOTRIENE (DOVONEX) 0.005 % CREAM Apply topically 2 times daily. CLOBETASOL (TEMOVATE) 0.05 % CREAM Apply topically 2 times daily. GABAPENTIN (NEURONTIN) 600 MG TABLET Take 1 tablet (600 mg) by mouth 3 times daily. IBUPROFEN 600 MG TABLET Take 1 tablet (600 mg) by mouth 4 times daily as needed for mild pain (1-3) for up to 7 days. MELATONIN 5 MG TABLET Take 1 tablet (5 mg) by mouth Nightly. MULTIPLE VITAMINS TABLET Take 1 tablet by mouth daily. NICOTINE (NICODERM, STEP 2) 14 MG/24HR PATCH Place 1 patch on the skin daily. Do not start before October 23, 2022. NICOTINE POLACRILEX (COMMIT) 2 MG LOZENGE Dissolve 1 lozenge (2 mg) in the mouth every 2 hours as needed for smoking cessation (nicotine craving, urge to smoke). PANTOPRAZOLE (PROTONIX) 40 MG EC TABLET Take 1 tablet (40 mg) by mouth every morning (before breakfast). THIAMINE MONONITRATE (VITAMIN B1) 100 MG TABLET Take 1 tablet (100 mg) by mouth daily. ALLERGIES Bee venom, Nickel, and Tramadol FAMILY HISTORY Family History Problem Relation Name Age of Onset Depression Sister Maria De Jesus Hogan Other ([id number]) Sister Maria De Jesus Hogan agoraphobia Arthritis Sister Maria De Jesus Hogan Cancer Mother Maria De Jesus Hogan colon rectal cancer; dx after age 50 Other ([id number]) Mother Maria De Jesus Hogan alcoholism Alcohol abuse Mother Maria De Jesus Hogan Stroke Mother Maria De Jesus Hogan Other ([id number]) Father Maria De Jesus Hogan h/o rheumatic fever, cardiac arrest due to bee sting Hypertension Father Maria De Jesus Hogan SOCIAL HISTORY Social History Socioeconomic History Marital status: Tobacco Use Smoking status: Every Day Packs/day: 2 Types: Cigarettes Start date: 10/10/1985 Smokeless tobacco: Never Vaping Use Vaping Use: Never used Substance and Sexual Activity Alcohol use: Yes Comment: Detox home for a week 0 drinks 02/17/23 Drug use: No Sexual activity: Yes Partners: Female control/protection: Other Comment: live with Social Determinants of Health Financial Resource Strain: Low Risk (02/09/2023) Overall Financial Resource Strain (CARDIA) Difficulty of Paying Living Expenses: Not very hard Food Insecurity: No Food Insecurity (02/09/2023) Hunger Vital Sign Worried About Running Out of Food in the Last Year: Never true Ran Out of Food in the Last Year: Never true Transportation Needs: No Transportation Needs (02/08/2023) PRAPARE - Transportation Lack of Transportation (Medical): No Lack of Transportation (Non-Medical): No Physical Activity: Inactive (02/09/2023) Exercise Vital Sign Days of Exercise per Week: 0 days Minutes of Exercise per Session: 0 min Stress: Stress Concern Present (02/09/2023) [place] [employer] - Occupational Stress Questionnaire Feeling of Stress : Very much Social Connections: Moderately Isolated (02/09/2023) Social Connection and Isolation Panel [NHANES] Frequency of Communication with Friends and Family: More than three times a week Frequency of Social Gatherings with Friends and Family: More than three times a week Attends Synagogue Services: Never Active Member of Clubs or Organizations: No Attends Club or Organization Meetings: Never Marital Status: Intimate Partner Violence: Not At Risk (07/22/2022) Humiliation, Afraid, Rape, and Kick questionnaire Fear of Current or Ex-Partner: No Emotionally Abused: No Physically Abused: No Sexually Abused: No Housing Stability: Unknown (02/08/2023) Housing Stability Vital Sign Unable to Pay for Housing in the Last Year: No Unstable Housing in the Last Year: No SCREENINGS PHYSICAL EXAM ED Triage Vitals Temp Pulse Resp BP -- -- -- -- SpO2 Temp src Heart Rate Source Patient Position -- -- -- -- BP Location FiO2 (%) -- -- Physical Exam Constitutional: Appearance: He is not ill-appearing. Cardiovascular: Rate and Rhythm: Normal rate. Pulmonary: Effort: Pulmonary effort is normal. Musculoskeletal: General: Normal range of motion. Cervical back: Normal range of motion. Skin: General: Skin is warm and dry. Capillary Refill: Capillary refill takes less than 2 seconds. Neurological: General: No focal deficit present. Mental Status: He is alert. Not febrile not toxic Lungs no wheezes head swollen left maxilla Mouth - multiple carious teeth, airway patent, no tongue elevation, no stridor, no neck edema or crepitance EMERGENCY DEPARTMENT COURSE and DIFFERENTIAL DIAGNOSIS/MDM: Vitals: Vitals: 02/18/23 0750 BP: (!) 164/100 Pulse: 93 Resp: 16 Temp: 36.6 C (97.8 F) TempSrc: Temporal SpO2: 99% Medications - No data to display Medical Decision Making and ED Course The patient presented with a chief complaint of left-sided facial swelling. The differential diagnosis associated with this patient's presentation includes injury dental abscess sinusitis. Our workup consisted of ordering/reviewing history and physical exam which is not consistent with injury or sinusitis but is consistent with an infection secondary to his dental problem. Patient aware that he will need dental follow-up and will pursue that this morning. No evidence of airway compromise or Ludewig's angina. Patient agrees with symptomatic treatment and dental and PCP follow-up as an outpatient. Diagnostic tests and medications considered but not ordered: With patent so no indication for CT imaging to assess for airway Chronic conditions impacting care: History of substance abuse which may impair his immune system Social determinants of health affecting care: His Medicaid insurance makes finding a dentist we will treat him difficult Consideration of hospitalization or de-escalation of care: No evidence of airway compromise so does not meet criteria for hospitalization FINAL IMPRESSION 1. Dental abscess DISPOSITION Discharge 02/18/2023 07:58:26 AM PATIENT REFERRED TO: Lynda Rasheed MD [address] [place] [address] [address] [facility] [id number] as previously scheduled DISCHARGE MEDICATIONS: New Prescriptions PENICILLIN V (VEETID) 250 MG TABLET Take 1 tablet (250 mg) by mouth in the morning and 1 tablet (250 mg) at noon and 1 tablet (250 mg) in the evening and 1 tablet (250 mg) before bedtime. Do all this for 7 days. (Comment: Please note this report has been produced using speech recognition software and may contain errors related to that system including errors in grammar, punctuation, and spelling, as well as words and phrases that may be inappropriate. If there are any questions or concerns please feel free to contact the dictating provider for clarification.) Harjinder Darnell MD (electronically signed) Emergency Medicine Provider Harjinder Darnell MD 02/18/23 1009 [facility] 02-17-2023 Hospital Discharge instructions Harjinder Darnell MD - 02/17/2023 9:20 AM EST Follow-up with a dentist as soon as possible The following attachments cannot be sent through Care Everywhere.Dental Pain Discharge Instructions (R[place]an)documented in this encounter [facility] 02-17-2023 Emergency department Note EMERGENCY DEPARTMENT ENCOUNTER Pt Name: Maria De Jesus Hogan Birthdate 1965 Date of evaluation: 02/17/2023 ED Provider: Harjinder Darnell MD CHIEF COMPLAINT Chief Complaint Patient presents with Dental Pain History from patient and HISTORY OF PRESENT ILLNESS (Location/Symptom, Timing/Onset, Context/Setting, Quality, Duration, Modifying Factors, Severity) Note limiting factors. I wore appropriate PPE for the entirety of this encounter. HPI Maria De Jesus Hogan is a 57 y.o. who presents to the emergency department complaining of tooth pain. Began 2 days ago. Last to a dentist a year and a half ago. No fever or injury. Has multiple broken teeth. States is difficult to see a dentist because of his Medicaid insurance and that he has to work full-time. States the pain in his left upper teeth. Dull mild aching without radiation nothing makes it better nothing makes it worse. Feels like a nerve root is exposed. No trouble swallowing no fever or drooling no injury. Cannot get into see a dentist because it is the weekend. Came to the emergency department for pain relief. Nursing Notes were reviewed. Limitations to history: None Outside historians: Family REVIEW OF SYSTEMS Review of Systems Constitutional: Negative for fever. HENT: Positive for dental problem. Negative for drooling, sore throat, trouble swallowing and voice change. Eyes: Negative for visual disturbance. Respiratory: Negative for shortness of breath and stridor. Cardiovascular: Negative for chest pain. Gastrointestinal: Negative for abdominal pain. Genitourinary: Negative for difficulty urinating. Musculoskeletal: Negative for back pain and neck pain. Skin: Negative for rash. Neurological: Negative for headaches. Pertinent positives and negatives as per HPI PAST MEDICAL HISTORY Past Medical History: Diagnosis Date Alcohol abuse Alcohol dependence with withdrawal (HCC) 08/31/2019 Alcohol intoxication without use disorder, uncomplicated (HCC) 10/01/2019 Alcohol use disorder 09/10/2022 Alcohol withdrawal syndrome with complication (HCC) 09/27/2021 Alcohol withdrawal, uncomplicated (HCC) 08/31/2019 Alcohol withdrawal, with unspecified complication (HCC) 10/02/2019 Alcohol withdrawal, with unspecified complication (HCC) 10/02/2019 Alcoholism (CMS/HCC) (HCC) Anxiety Arthritis Maria De Jesus Cerebral artery occlusion with cerebral infarction (HCC) Cerebrovascular disease Depression GERD (gastroesophageal reflux disease) Maria De Jesus Hypertension Insomnia SURGICAL HISTORY Past Surgical History: Procedure Laterality Date COLONOSCOPY 06/10/2020 EGD/Dr Madison/[facility]ST REMOVAL face EGD (HISTORICAL) 07/23/2022 Dr. Estrella-[facility] SMALL INTESTINE SURGERY UPPER GASTROINTESTINAL ENDOSCOPY 09/27/2021 normal WISDOM TOOTH EXTRACTION CURRENT MEDICATIONS Previous Medications ALBUTEROL 108 (90 BASE) MCG/ACT INHALER Inhale 2 puffs every 6 hours as needed for wheezing or shortness of breath. CALCIPOTRIENE (DOVONEX) 0.005 % CREAM Apply topically 2 times daily. CLOBETASOL (TEMOVATE) 0.05 % CREAM Apply topically 2 times daily. GABAPENTIN (NEURONTIN) 600 MG TABLET Take 1 tablet (600 mg) by mouth 3 times daily. MELATONIN 5 MG TABLET Take 1 tablet (5 mg) by mouth Nightly. MULTIPLE VITAMINS TABLET Take 1 tablet by mouth daily. NICOTINE (NICODERM, STEP 2) 14 MG/24HR PATCH Place 1 patch on the skin daily. Do not start before October 23, 2022. NICOTINE POLACRILEX (COMMIT) 2 MG LOZENGE Dissolve 1 lozenge (2 mg) in the mouth every 2 hours as needed for smoking cessation (nicotine craving, urge to smoke). PANTOPRAZOLE (PROTONIX) 40 MG EC TABLET Take 1 tablet (40 mg) by mouth every morning (before breakfast). THIAMINE MONONITRATE (VITAMIN B1) 100 MG TABLET Take 1 tablet (100 mg) by mouth daily. ALLERGIES Bee venom, Nickel, and Tramadol FAMILY HISTORY Family History Problem Relation Name Age of Onset Depression Sister Maria De Jesus Hogan Other ([id number]) Sister Maria De Jesus Hogan agoraphobia Arthritis Sister Maria De Jesus Hogan Cancer Mother Maria De Jesus Hogan colon rectal cancer; dx after age 50 Other ([id number]) Mother Maria De Jesus Hogan alcoholism Alcohol abuse Mother Maria De Jesus Hogan Stroke Mother Maria De Jesus Hogan Other ([id number]) Father Maria De Jesus Hogan h/o rheumatic fever, cardiac arrest due to bee sting Hypertension Father Maria De Jesus Hogan SOCIAL HISTORY Social History Socioeconomic History Marital status: Tobacco Use Smoking status: Every Day Packs/day: 2 Types: Cigarettes Start date: 10/10/1985 Smokeless tobacco: Never Vaping Use Vaping Use: Never used Substance and Sexual Activity Alcohol use: Yes Comment: Detox home for a week 0 drinks 02/17/23 Drug use: No Sexual activity: Yes Partners: Female control/protection: Other Comment: live with Social Determinants of Health Financial Resource Strain: Low Risk (02/09/2023) Overall Financial Resource Strain (CARDIA) Difficulty of Paying Living Expenses: Not very hard Food Insecurity: No Food Insecurity (02/09/2023) Hunger Vital Sign Worried About Running Out of Food in the Last Year: Never true Ran Out of Food in the Last Year: Never true Transportation Needs: No Transportation Needs (02/08/2023) PRAPARE - Transportation Lack of Transportation (Medical): No Lack of Transportation (Non-Medical): No Physical Activity: Inactive (02/09/2023) Exercise Vital Sign Days of Exercise per Week: 0 days Minutes of Exercise per Session: 0 min Stress: Stress Concern Present (02/09/2023) [place] [employer] - Occupational Stress Questionnaire Feeling of Stress : Very much Social Connections: Moderately Isolated (02/09/2023) Social Connection and Isolation Panel [NHANES] Frequency of Communication with Friends and Family: More than three times a week Frequency of Social Gatherings with Friends and Family: More than three times a week Attends Synagogue Services: Never Active Member of Clubs or Organizations: No Attends Club or Organization Meetings: Never Marital Status: Intimate Partner Violence: Not At Risk (07/22/2022) Humiliation, Afraid, Rape, and Kick questionnaire Fear of Current or Ex-Partner: No Emotionally Abused: No Physically Abused: No Sexually Abused: No Housing Stability: Unknown (02/08/2023) Housing Stability Vital Sign Unable to Pay for Housing in the Last Year: No Unstable Housing in the Last Year: No SCREENINGS PHYSICAL EXAM ED Triage Vitals Temp Pulse Resp BP -- -- -- -- SpO2 Temp src Heart Rate Source Patient Position -- -- -- -- BP Location FiO2 (%) -- -- Physical Exam Constitutional: Appearance: Normal appearance. HENT: Head: Normocephalic and atraumatic. Eyes: Extraocular Movements: Extraocular movements intact. Pupils: Pupils are equal, round, and reactive to light. Cardiovascular: Rate and Rhythm: Tachycardia present. Pulmonary: Effort: Pulmonary effort is normal. Abdominal: Palpations: Abdomen is soft. Tenderness: There is no abdominal tenderness. Musculoskeletal: General: Normal range of motion. Skin: General: Skin is warm and dry. Capillary Refill: Capillary refill takes less than 2 seconds. Neurological: General: No focal deficit present. Mental Status: He is alert. Not febrile not toxic Mouth -multiple missing or broken teeth including 13 and 15. Airway patent. No erythema. No tongue elevation. No stridor. EMERGENCY DEPARTMENT COURSE and DIFFERENTIAL DIAGNOSIS/MDM: Vitals: Vitals: 02/17/23 0903 02/17/23 0917 BP: (!) 156/93 (!) 138/93 Pulse: 107 93 Resp: 16 16 Temp: 36.6 C (97.9 F) TempSrc: Oral SpO2: 97% 96% Weight: 99.8 kg (220 lb) Height: 1.803 m (5' 11) Medications oxyCODONE-acetaminophen (Percocet) 5-325 MG per tablet 2 tablet (has no administration in time range) Medical Decision Making and ED Course The patient presented with a chief complaint of dental pain. The differential diagnosis associated with this patient's presentation includes tooth problem fractured tooth local infection. Our workup consisted of ordering/reviewing history and physical exam which showed multiple broken teeth no evidence of infection or airway compromise. Patient improved with ED treatment. Tachycardia resolved without treatment. Patient states he will follow-up with a dentist. Diagnostic tests and medications considered but not ordered: Shared decision making regarding treatment of his pain. He declined intramuscular analgesics and also declined a dental block. Review of prior external records: Hospitalization last week for alcohol withdrawal syndrome. Patient states that he has not had alcohol since discharge. Chronic conditions impacting care: For dentition contributes to current situation Social determinants of health affecting care:States is difficult to see a dentist because of his Medicaid insurance and that he has to work full-time. ED Medications managed: Symptoms improved with oral Percocet. is driving patient home. Consideration of hospitalization or de-escalation of care: No evidence of local or systemic infection and no evidence of airway compromise so patient does not meet criteria for hospitalization. FINAL IMPRESSION 1. Pain, dental DISPOSITION Discharge 02/17/2023 09:20:29 AM PATIENT REFERRED TO: Lynda Rasheed MD [address] [place] [address] [address] [facility] [address] as previously scheduled DISCHARGE MEDICATIONS: New Prescriptions IBUPROFEN 600 MG TABLET Take 1 tablet (600 mg) by mouth 4 times daily as needed for mild pain (1-3) for up to 7 days. (Comment: Please note this report has been produced using speech recognition software and may contain errors related to that system including errors in grammar, punctuation, and spelling, as well as words and phrases that may be inappropriate. If there are any questions or concerns please feel free to contact the dictating provider for clarification.) Harjinder Darnell MD (electronically signed) Emergency Medicine Provider Harjinder Darnell MD 02/17/23 1040 Patient to room 3 with c/o upper left dental pain that started yesterday. V/S obtained, call light within reach. documented in this encounter [facility] 02-17-2023 Emergency department Triage note Patient to room 3 with c/o upper left dental pain that started yesterday. V/S obtained, call light within reach. [facility] 02-17-2023 Physician Emergency department Note EMERGENCY DEPARTMENT ENCOUNTER Pt Name: Maria De Jesus Hogan Birthdate 1965 Date of evaluation: 02/17/2023 ED Provider: Harjinder Darnell MD CHIEF COMPLAINT Chief Complaint Patient presents with Dental Pain History from patient and HISTORY OF PRESENT ILLNESS (Location/Symptom, Timing/Onset, Context/Setting, Quality, Duration, Modifying Factors, Severity) Note limiting factors. I wore appropriate PPE for the entirety of this encounter. HPI Maria De Jesus Hogan is a 57 y.o. who presents to the emergency department complaining of tooth pain. Began 2 days ago. Last to a dentist a year and a half ago. No fever or injury. Has multiple broken teeth. States is difficult to see a dentist because of his Medicaid insurance and that he has to work full-time. States the pain in his left upper teeth. Dull mild aching without radiation nothing makes it better nothing makes it worse. Feels like a nerve root is exposed. No trouble swallowing no fever or drooling no injury. Cannot get into see a dentist because it is the weekend. Came to the emergency department for pain relief. Nursing Notes were reviewed. Limitations to history: None Outside historians: Family REVIEW OF SYSTEMS Review of Systems Constitutional: Negative for fever. HENT: Positive for dental problem. Negative for drooling, sore throat, trouble swallowing and voice change. Eyes: Negative for visual disturbance. Respiratory: Negative for shortness of breath and stridor. Cardiovascular: Negative for chest pain. Gastrointestinal: Negative for abdominal pain. Genitourinary: Negative for difficulty urinating. Musculoskeletal: Negative for back pain and neck pain. Skin: Negative for rash. Neurological: Negative for headaches. Pertinent positives and negatives as per HPI PAST MEDICAL HISTORY Past Medical History: Diagnosis Date Alcohol abuse Alcohol dependence with withdrawal (HCC) 08/31/2019 Alcohol intoxication without use disorder, uncomplicated (HCC) 10/01/2019 Alcohol use disorder 09/10/2022 Alcohol withdrawal syndrome with complication (HCC) 09/27/2021 Alcohol withdrawal, uncomplicated (HCC) 08/31/2019 Alcohol withdrawal, with unspecified complication (HCC) 10/02/2019 Alcohol withdrawal, with unspecified complication (HCC) 10/02/2019 Alcoholism ([facility]/HCC) (HCC) Anxiety Arthritis Maria De Jesus Cerebral artery occlusion with cerebral infarction (HCC) Cerebrovascular disease Depression GERD (gastroesophageal reflux disease) Maria De Jesus Hypertension Insomnia SURGICAL HISTORY Past Surgical History: Procedure Laterality Date COLONOSCOPY 06/10/2020 EGD/Dr Madison/[facility] REMOVAL face EGD (HISTORICAL) 07/23/2022 Dr. Estrella-[facility] SMALL INTESTINE SURGERY UPPER GASTROINTESTINAL ENDOSCOPY 09/27/2021 normal WISDOM TOOTH EXTRACTION CURRENT MEDICATIONS Previous Medications ALBUTEROL 108 (90 BASE) MCG/ACT INHALER Inhale 2 puffs every 6 hours as needed for wheezing or shortness of breath. CALCIPOTRIENE (DOVONEX) 0.005 % CREAM Apply topically 2 times daily. CLOBETASOL (TEMOVATE) 0.05 % CREAM Apply topically 2 times daily. GABAPENTIN (NEURONTIN) 600 MG TABLET Take 1 tablet (600 mg) by mouth 3 times daily. MELATONIN 5 MG TABLET Take 1 tablet (5 mg) by mouth Nightly. MULTIPLE VITAMINS TABLET Take 1 tablet by mouth daily. NICOTINE (NICODERM, STEP 2) 14 MG/24HR PATCH Place 1 patch on the skin daily. Do not start before October 23, 2022. NICOTINE POLACRILEX (COMMIT) 2 MG LOZENGE Dissolve 1 lozenge (2 mg) in the mouth every 2 hours as needed for smoking cessation (nicotine craving, urge to smoke). PANTOPRAZOLE (PROTONIX) 40 MG EC TABLET Take 1 tablet (40 mg) by mouth every morning (before breakfast). THIAMINE MONONITRATE (VITAMIN B1) 100 MG TABLET Take 1 tablet (100 mg) by mouth daily. ALLERGIES Bee venom, Nickel, and Tramadol FAMILY HISTORY Family History Problem Relation Name Age of Onset Depression Sister Maria De Jesus Hogan Other ([id number]) Sister Maria De Jesus Hogan agoraphobia Arthritis Sister Maria De Jesus Hogan Cancer Mother Maria De Jesus Hogan colon rectal cancer; dx after age 50 Other ([id number]) Mother Maria De Jesus Hogan alcoholism Alcohol abuse Mother Maria De Jesus Hogan Stroke Mother Maria De Jesus Hogan Other ([id number]) Father Maria De Jesus Hogan h/o rheumatic fever, cardiac arrest due to bee sting Hypertension Father Maria De Jesus Hogan SOCIAL HISTORY Social History Socioeconomic History Marital status: Tobacco Use Smoking status: Every Day Packs/day: 2 Types: Cigarettes Start date: 10/10/1985 Smokeless tobacco: Never Vaping Use Vaping Use: Never used Substance and Sexual Activity Alcohol use: Yes Comment: Detox home for a week 0 drinks 02/17/23 Drug use: No Sexual activity: Yes Partners: Female control/protection: Other Comment: live with Social Determinants of Health Financial Resource Strain: Low Risk (02/09/2023) Overall Financial Resource Strain (CARDIA) Difficulty of Paying Living Expenses: Not very hard Food Insecurity: No Food Insecurity (02/09/2023) Hunger Vital Sign Worried About Running Out of Food in the Last Year: Never true Ran Out of Food in the Last Year: Never true Transportation Needs: No Transportation Needs (02/08/2023) PRAPARE - Transportation Lack of Transportation (Medical): No Lack of Transportation (Non-Medical): No Physical Activity: Inactive (02/09/2023) Exercise Vital Sign Days of Exercise per Week: 0 days Minutes of Exercise per Session: 0 min Stress: Stress Concern Present (02/09/2023) [place] [employer] - Occupational Stress Questionnaire Feeling of Stress : Very much Social Connections: Moderately Isolated (02/09/2023) Social Connection and Isolation Panel [NHANES] Frequency of Communication with Friends and Family: More than three times a week Frequency of Social Gatherings with Friends and Family: More than three times a week Attends Synagogue Services: Never Active Member of Clubs or Organizations: No Attends Club or Organization Meetings: Never Marital Status: Intimate Partner Violence: Not At Risk (07/22/2022) Humiliation, Afraid, Rape, and Kick questionnaire Fear of Current or Ex-Partner: No Emotionally Abused: No Physically Abused: No Sexually Abused: No Housing Stability: Unknown (02/08/2023) Housing Stability Vital Sign Unable to Pay for Housing in the Last Year: No Unstable Housing in the Last Year: No SCREENINGS PHYSICAL EXAM ED Triage Vitals Temp Pulse Resp BP -- -- -- -- SpO2 Temp src Heart Rate Source Patient Position -- -- -- -- BP Location FiO2 (%) -- -- Physical Exam Constitutional: Appearance: Normal appearance. HENT: Head: Normocephalic and atraumatic. Eyes: Extraocular Movements: Extraocular movements intact. Pupils: Pupils are equal, round, and reactive to light. Cardiovascular: Rate and Rhythm: Tachycardia present. Pulmonary: Effort: Pulmonary effort is normal. Abdominal: Palpations: Abdomen is soft. Tenderness: There is no abdominal tenderness. Musculoskeletal: General: Normal range of motion. Skin: General: Skin is warm and dry. Capillary Refill: Capillary refill takes less than 2 seconds. Neurological: General: No focal deficit present. Mental Status: He is alert. Not febrile not toxic Mouth -multiple missing or broken teeth including 13 and 15. Airway patent. No erythema. No tongue elevation. No stridor. EMERGENCY DEPARTMENT COURSE and DIFFERENTIAL DIAGNOSIS/MDM: Vitals: Vitals: 02/17/23 0903 02/17/23 0917 BP: (!) 156/93 (!) 138/93 Pulse: 107 93 Resp: 16 16 Temp: 36.6 C (97.9 F) TempSrc: Oral SpO2: 97% 96% Weight: 99.8 kg (220 lb) Height: 1.803 m (5' 11) Medications oxyCODONE-acetaminophen (Percocet) 5-325 MG per tablet 2 tablet (has no administration in time range) Medical Decision Making and ED Course The patient presented with a chief complaint of dental pain. The differential diagnosis associated with this patient's presentation includes tooth problem fractured tooth local infection. Our workup consisted of ordering/reviewing history and physical exam which showed multiple broken teeth no evidence of infection or airway compromise. Patient improved with ED treatment. Tachycardia resolved without treatment. Patient states he will follow-up with a dentist. Diagnostic tests and medications considered but not ordered: Shared decision making regarding treatment of his pain. He declined intramuscular analgesics and also declined a dental block. Review of prior external records: Hospitalization last week for alcohol withdrawal syndrome. Patient states that he has not had alcohol since discharge. Chronic conditions impacting care: For dentition contributes to current situation Social determinants of health affecting care:States is difficult to see a dentist because of his Medicaid insurance and that he has to work full-time. ED Medications managed: Symptoms improved with oral Percocet. is driving patient home. Consideration of hospitalization or de-escalation of care: No evidence of local or systemic infection and no evidence of airway compromise so patient does not meet criteria for hospitalization. FINAL IMPRESSION 1. Pain, dental DISPOSITION Discharge 02/17/2023 09:20:29 AM PATIENT REFERRED TO: Lynda Rasheed MD [address] [place] [address] [address] [facility] [address] as previously scheduled DISCHARGE MEDICATIONS: New Prescriptions IBUPROFEN 600 MG TABLET Take 1 tablet (600 mg) by mouth 4 times daily as needed for mild pain (1-3) for up to 7 days. (Comment: Please note this report has been produced using speech recognition software and may contain errors related to that system including errors in grammar, punctuation, and spelling, as well as words and phrases that may be inappropriate. If there are any questions or concerns please feel free to contact the dictating provider for clarification.) Harjinder Darnell MD (electronically signed) Emergency Medicine Provider Harjinder Darnell MD 02/17/23 1040 [employer] 02-11-2023 Note Formatting of this n ote might be different from the original. UNIVERSITY ARCHIVIST informed the patient called his insurance rather than have his come pick him up from the hospital. Provide a ride picking patient up from hospital and taking them back home [facility] [employer] 02-11-2023 Note Formatting of this n ote might be different from the original. UNIVERSITY ARCHIVIST informed the patient called his insurance rather than have his come pick him up from the hospital. Provide a ride picking patient up from hospital and taking them back home [employer] 02-11-2023 Miscellaneous Notes BENNIE informed the patient called his insurance rather than have his come pick him up from the hospital. Provide a ride picking patient up from hospital and taking them back home UNIVERSITY ARCHIVIST saw patient to discuss aftercare plans and treatment post discharge. Patient declined assistance with aftercare appointments at current time. Patient discussed desire to restart MAT. UNIVERSITY ARCHIVIST noted concerns with MAT Patient's chart encourage patient to discuss this further with medical provider. Patient denied current SI/HI/AVH. Patient reported that their would be picking them up from the hospital and taking them back home. Patient denied needing anything further from [facility] at the time. UNIVERSITY ARCHIVIST informed patient's nurse about conversation. Problem: Sensory Perceptual Alteration as Evidenced by Goal: Understands least restrictive measures Outcome: Progressing Goal: Free from restraint events Outcome: Progressing Problem: Ineffective Coping Goal: Identifies healthy coping skills Outcome: Progressing Problem: Potential for Substance Withdrawal Goal: Verbalizes signs/symptoms of withdrawal Outcome: Progressing Goal: Reports signs/symptoms of withdrawal Outcome: Progressing ACC RN in to see pt. Pt resting in bed with eyes closed, responds to verbal stimuli. Pt voices concern about vomiting blood and states that is why he came to the ER. I explained to pt connection between esophageal varices and alcohol use and pt states he has a history of this and had surgery approx 6 months to 1 year ago for same thing. Pt states he was drinking very heavily at that point but then went through detox and was sober for 6 months. Pt was prescribed ReVia for alcohol abuse and felt this worked very well for him. Pt states his family members continued bringing alcohol into the home and this is what led him to start drinking again. Pt states he has been drinking 10-11 natty daddy tall boys per day and enjoys drinking. He states he has more fun. However, due to health reasons, pt is interested in detox and restarting ReVia for alcohol use. Pt is also interested in attending OP IOP and connecting with a PRC from [employer]. Pt was provided with informational brochures on First Step, IOP, PRC, and Vivitrol. documented in this encounter [facility] 02-11-2023 History of Present illness Narrative Denies si/hi. .discussed risk of using any etoh, street drugs, meds not prescribed or as. Discussed increased risk of od or if uses following detox, stated understood. Discussed red book, meetings, tool box with patient, info given. Discussed after care info, was included in discharge instructions. Discussed discharge, stated understood and signed. Insurance company coming to medicinal plant picker. He called himself. Discharged from unit at 1201. This nurse to care for pt throughout shift. Pt calm, cooperative, and friendly. Seen interacting with staff and peers appropriately. A/Ox4. Steady gait. Performs ADLs independently and w/o difficulty. Skin P/W/D. + for mild tremors. Denies SI/HI and AH/VH. Medication compliant. PRN medication administered when requested. Pt voices no complaints at this time. Pt states hopes of discharge today R/T employment concerns. Pt educated to voice such concerns with rounding provider. Pt verbalized understanding. Pt encouraged to notify staff of any changes/needs that arise. Pt verbalized understanding. Addiction Medicine Progress Note Patient: Maria De Jesus Hogan Chief Complaint Patient presents with Alcohol Problem Pt presents with requesting ETOH detox. Pt states he drinks 6-9 tall boy beers every day. Last drink approx 30 mins ago. Denies withdraw seizures in the past. Vomiting Pt states he started vomiting several days ago and there are some blood streaks in the vomit. Not able to keep much food or water down. Mid/epigastric abd pain as well as diarrhea and chills/sweats. Problem List: Active Problems: Alcohol withdrawal syndrome without complication (HCC) Cigarette smoker Severe alcohol use disorder (HCC) Subjective Interim History: Patient was in dayroom, endorse symptoms of withdrawal including diaphoresis at night and tremors. Overall, withdrawal symptoms are improving. No other physical complaints voiced. Patient is tolerating meals and fluids. Did not receive PRN medication overnight. Patient did participated in group and interacted with peers. Patient states that he wants to be discharge tomorrow because he has to work. Patient reports that he will leave AMA if he is not formally discharged. Patient with a clear history of leaving AMA. Patient states that he will restart taking his naltrexone. Advised patient not to restart naltrexone 2/2 elevated liver enzymes; explained the risks. All patient questions answered. Patient requesting blood work in the morning and will follow the instructions of the physician. Positive signs and/or symptoms of withdrawal observed No overt events overnight documented Objective Review of Systems: All ROS was completed and was negative unless stated above Physical Exam: Vitals: 02/09/23 1732 02/09/23 2336 02/10/23 0526 02/10/23 1148 BP: 133/77 (!) 132/91 (!) 145/97 122/84 BP Location: Right arm Left arm Right arm Left arm Patient Position: Lying Sitting Sitting Sitting Pulse: 109 107 (!) 114 (!) 114 Resp: 16 20 16 16 Temp: 36.7 C (98 F) (!) 35.5 C (95.9 F) 36.7 C (98 F) 36.6 C (97.8 F) TempSrc: Temporal Temporal Temporal Temporal SpO2: 92% 94% 92% 95% Weight: Physical Exam Vitals and nursing note reviewed. Constitutional: Appearance: He is not diaphoretic. HENT: Mouth/Throat: Mouth: Mucous membranes are dry. Eyes: General: No scleral icterus. Cardiovascular: Rate and Rhythm: Tachycardia present. Pulmonary: Effort: Pulmonary effort is normal. Abdominal: General: There is no distension. Musculoskeletal: General: Normal range of motion. Skin: Coloration: Skin is not pale. Neurological: Mental Status: He is alert and oriented to person, place, and time. Motor: Tremor present. No seizure activity. Coordination: Coordination is intact. Gait: Gait is intact. Psychiatric: Attention and Perception: He does not perceive auditory or visual hallucinations. Mood and Affect: Affect normal. Mood is anxious. Speech: Speech normal. Behavior: Behavior normal. Behavior is cooperative. Thought Content: Thought content does not include homicidal or suicidal ideation. Cognition and Memory: Cognition and memory normal. Judgment: Judgment is impulsive and inappropriate. Medications: clobetasol, , Topical, BID folic acid, 1 mg, Oral, Daily gabapentin, 600 mg, Oral, TID melatonin, 5 mg, Oral, Nightly nicotine, 1 patch, TransDERmal, Daily pantoprazole, 40 mg, Oral, qAM AC PHENobarbital, 64.8 mg, Oral, Q4H therapeutic multivitamin-minerals, 1 tablet, Oral, Daily thiamine, 100 mg, Oral, Daily PRN medications: acetaminophen, albuterol, aluminum & magnesium hydroxide-simethicone, hydrOXYzine pamoate, loperamide, magnesium hydroxide, nicotine polacrilex, ondansetron ODT Labs: Last 24 hours: Recent Results (from the past 24 hour(s)) Hepatic function panel Collection Time: 02/10/23 4:49 AM Result Value Ref Range BILIRUBIN, TOTAL 1.2 0.2 - 1.3 mg/dL BILIRUBIN, DIRECT 0.0 0.0 - 0.3 mg/dL ALKALINE PHOSPHATASE 98 38 - 126 U/L AST (SGOT) 121 (H) 15 - 46 U/L ALT 153 (H) 0 - 49 U/L ALBUMIN 4.4 3.5 - 5.0 g/dL TOTAL PROTEIN 7.5 6.3 - 8.2 g/dL Assessment Severe alcohol use disorder Nicotine use Elevated liver enzymes The last use of alcohol was 02/08/2023 Plan Phenobarb taper to manage withdrawal symptoms: 65 mg every 4 hours for today. PRN medications for withdrawal symptom management. CIWA scores per unit protocol. Counseled patient on biopsychosocial consequences of substance use. -Encouraged professional chemical dependency treatment. - 12 step meeting attendance. Anticipated to be discharged in 2-3 days pending: - resolution of withdrawal symptoms. - labs/tests/tasks to review: LFT Recovery plan: UNIVERSITY ARCHIVIST plan for further addiction treatment at undecided JUAN Rothman NP Addiction Medicine 02/10/2023 at 2:54 PM Note: Narrative portions of note written using [employer] dictation software. Efforts are made to dictate clearly and proofread but errors in dictation still may occur. Please reach out to author with any clarifying questions. Nutrition rescreen completed. Chart reviewed. Patient to be monitored and followed by the diet optical laboratory technician. This nurse to care for patient throughout shift. Pt calm, cooperative, friendly. Withdrawn to room during PM hours but in common area interacting with peers in AM. Interacts with peers and staff appropriately. Medication compliant. PRNs administered when requested. C/O anxiety. + for tremors. Denies SI/HI and AH/VH. Blood draw x1 attempt, successful with 23G butterfly to R hand. Pt tolerated well. Specimen sent to lab. Pt encouraged to notify staff of any changes/needs that arise. Pt verbalized understanding. documented in this encounter [facility] 02-11-2023 Hospital Discharge instructions Papito Hood MD - 02/11/2023 11:19 AM EST Images from the original note were not included. [facility] Addiction Medicine Intensive Outpatient Program [place] ([facility]): [phone] [place]: [phone] [place]: [phone] Behavioral Health Intensive Outpatient Program [place] ([facility]): [phone] [place]: [phone] First Step [place] ([facility]): [phone] [place]: [phone] Partial Hospitalization Program [place] ([facility]): [phone] [facility] [place] ([facility]): [phone] Viv[facility] [place] ([facility]): [phone] Alcoholics Anonymous Meetings [email or web address] [address] [facility], [address], [place] [address] documented in this encounter [facility] 02-11-2023 Note Formatting of this n ote might be different from the original. UNIVERSITY ARCHIVIST saw patient to discuss aftercare plans and treatment post discharge. Patient declined assistance with aftercare appointments at current time. Patient discussed desire to restart MAT. UNIVERSITY ARCHIVIST noted concerns with MAT Patient's chart encourage patient to discuss this further with medical provider. Patient denied current SI/HI/AVH. Patient reported that their would be picking them up from the hospital and taking them back home. Patient denied needing anything further from UNIVERSITY ARCHIVIST at the time. UNIVERSITY ARCHIVIST informed patient's nurse about conversation. [facility] 02-11-2023 Note Formatting of this n ote might be different from the original. UNIVERSITY ARCHIVIST saw patient to discuss aftercare plans and treatment post discharge. Patient declined assistance with aftercare appointments at current time. Patient discussed desire to restart MAT. UNIVERSITY ARCHIVIST noted concerns with MAT Patient's chart encourage patient to discuss this further with medical provider. Patient denied current SI/HI/AVH. Patient reported that their would be picking them up from the hospital and taking them back home. Patient denied needing anything further from UNIVERSITY ARCHIVIST at the time. UNIVERSITY ARCHIVIST informed patient's nurse about conversation. [facility] 02-10-2023 Nurse Note Patient up and visible on the unit. Patient perseverating on discharge and nicotine lozenges, watches the clock and says Its been 2 hours I need my cigarette. Patient is compliant with medications and treatment offered. Patient denies SI/HI/AVH thus far. Patient appetite, hygiene, and sleep adequate. Patient independent with ADLs and ambulation. Patient socializes with peers, up in the day room watching television and conversing. Patient has no c/o pain and no behaviors noted thus far. Will continue to monitor for safety. [facility] 02-10-2023 Nurse Note Patient up and visible on the unit. Patient perseverating on discharge and nicotine lozenges, watches the clock and says Its been 2 hours I need my cigarette. Patient is compliant with medications and treatment offered. Patient denies SI/HI/AVH thus far. Patient appetite, hygiene, and sleep adequate. Patient independent with ADLs and ambulation. Patient socializes with peers, up in the day room watching television and conversing. Patient has no c/o pain and no behaviors noted thus far. Will continue to monitor for safety. Patient seclusive to room this shift. Patient compliant with medications and treatment offered. Patient denies SI/HI/AVH thus far. Patient appetite, hygiene, and sleep adequate. Patient independent with ADLs and ambulation. Patient encouraged to approach staff with any concerns or needs. Will continue to monitor for safety. Patient arrived to unit via stretcher escorted by protective services and EMT's. Patient Ambulated from stretcher at nursing station to room 413 independently. Gait steady. A & O x 4. No complaints of pain. Patient signed in. Oriented to unit and room. Patient called from unit phone. PRN trazodone 100 mg PO administered for sleep. documented in this encounter [facility] 02-09-2023 Nurse Note Patient seclusive to room this shift. Patient compliant with medications and treatment offered. Patient denies SI/HI/AVH thus far. Patient appetite, hygiene, and sleep adequate. Patient independent with ADLs and ambulation. Patient encouraged to approach staff with any concerns or needs. Will continue to monitor for safety. [facility] 02-09-2023 History and physical note Addiction Medicine [facility] Detox Unit H&P Patient: Maria De Jesus Hogan Admit Date: 02/08/2023 Primary Care Physician: Lynda Rasheed MD Chief Complaint Patient presents with Alcohol Problem Pt presents with requesting ETOH detox. Pt states he drinks 6-9 tall boy beers every day. Last drink approx 30 mins ago. Denies withdraw seizures in the past. Vomiting Pt states he started vomiting several days ago and there are some blood streaks in the vomit. Not able to keep much food or water down. Mid/epigastric abd pain as well as diarrhea and chills/sweats. ED note Maria De Jesus Hogan is a 57 y.o. male with history that includes alcoholism presenting to the ED requesting alcohol detox. He drinks 6-9 tall boys a day. His last drink was just prior to ED arrival. He vomits daily. Today had some blood-streaked vomiting. He has become increasingly somnolent lately and at bedside says that she is mentally preparing herself for the day she comes home and finds the patient . This has prompted him to seek detox today. Has tried in the past and had been doing well in the past on Vivitrol but fell off the wagon after and daughter were drinking at home. Patient also smokes. History of Present Illness Maria De Jesus Hogan is a 57 y.o. year old male with a PMH of anxiety, depression, stroke, HTN, CAD, chronic cough, fatty liver, Lombardo's esophagus and a severe alcohol use disorder. He is well known to this Addiction Medicine Team. Patient has previous history of detox occurring on 10/25/2021, 02/15/2021 (left AMA), 06/09/20, 10/01/19, 08/31/19 (left AMA), 2016 (left AMA), and 2014 (left AMA), 09/10/2022. Patient was discharged with aftercare plans of MAT-Vivitrol. Patient reports going to his appointment in September and maintaining sobriety an additional 1 month later. Patient reports relapsing shortly after that appointment. Patient report to drinking 7-8 24 ounce beers daily. Last drink was 02/08/2023. Maria De Jesus Hogan started drinking at the age of [age]. Patient remembers that his drinking has been a problem for a long time. Patient has a remote history of benzo, cocaine and marijuana use in the 80s. Denies a history or current use of any other illicit substances. He has a history of blackouts. Denies a history of DTs or withdrawal seizures. Patient's longest period of sobriety is 1 year in 2019 by going to AA meetings. He has never been to residential treatment. He has a history of IOP at [facility] and [facility] in [place]. He has a history of a psychiatric admission in 2016 for SI while intoxicated. Denies current SI/HI auditory or visual hallucination. Controlled Substance Monitoring OARRs Reviewed. and No signs of potential drug abuse or diversion identified. On admission, a urine drug screen was negative, and a serum alcohol level was 0.448. Current Substance Use: See HPI Substance Use History: Consequences: [] IVDA. [x] Blackouts related to substance use. [] History of withdrawal seizures. [] History of delirium tremens. [] History of overdoses. [x] Legal consequences of substance use. DUIx 1 Substance Use Disorder Criteria: 2-3 = mild; 4-5 = moderate; 6 or >6 = severe substance use disorder [x] Taking substance in larger amounts and/or for longer than intended. [x] Wanting to cut down or quit but not being able to. [] Spending a lot of time obtaining the substance. [x] Craving or a strong desire to use substance. [x] Repeatedly doesn't carry out major obligations due to substance use. [x] Using despite recurring social or interpersonal problems. [x] Reducing social, occupational, or recreational activities. [x] Recurrent use in physically hazardous situations. [x] Consistent use despite recurrent physical or psychological difficulties. [x] Tolerance (increased amounts to achieve intoxication or diminished effect). [x] Withdrawal syndrome or the substance is used to avoid withdrawal. Treatment History: [] Inpatient Rehab: denies [x] Chem Dep IOP: [facility] [x] Detoxifications: numerous. [x] 12 Step Meetings: yes [] Medication Assisted Treatment: denies. Psychiatric History: Current Psychiatrist: none Current Medications: see below Previous Medication Trials: unknown Diagnoses: depression, anxiety, depression, alcohol use disorder Psychiatric Hospitalizations: denies Previous Suicide Attempts: denies Adverse Childhood Events: denies Trauma History: denies History of Head Injuries: denies Remaining History: Social History Socioeconomic History Marital status: Spouse name: Not on file Number of children: Not on file Years of education: Not on file Highest education level: Not on file Occupational History Not on file Tobacco Use Smoking status: Every Day Packs/day: 2 Types: Cigarettes Start date: 10/10/1985 Smokeless tobacco: Never Vaping Use Vaping Use: Never used Substance and Sexual Activity Alcohol use: Yes Comment: 6-9 tall boy beers/day Drug use: No Sexual activity: Yes Partners: Female control/protection: Other Comment: live with Other Topics Concern Not on file Social History Narrative Not on file Social Determinants of Health Financial Resource Strain: Low Risk (02/09/2023) Overall Financial Resource Strain (CARDIA) Difficulty of Paying Living Expenses: Not very hard Food Insecurity: No Food Insecurity (02/09/2023) Hunger Vital Sign Worried About Running Out of Food in the Last Year: Never true Ran Out of Food in the Last Year: Never true Transportation Needs: No Transportation Needs (02/08/2023) PRAPARE - Transportation Lack of Transportation (Medical): No Lack of Transportation (Non-Medical): No Physical Activity: Inactive (02/09/2023) Exercise Vital Sign Days of Exercise per Week: 0 days Minutes of Exercise per Session: 0 min Stress: Stress Concern Present (02/09/2023) [place] [employer] - Occupational Stress Questionnaire Feeling of Stress : Very much Social Connections: Moderately Isolated (02/09/2023) Social Connection and Isolation Panel [NHANES] Frequency of Communication with Friends and Family: More than three times a week Frequency of Social Gatherings with Friends and Family: More than three times a week Attends Synagogue Services: Never Active Member of Clubs or Organizations: No Attends Club or Organization Meetings: Never Marital Status: Intimate Partner Violence: Not At Risk (07/22/2022) Humiliation, Afraid, Rape, and Kick questionnaire Fear of Current or Ex-Partner: No Emotionally Abused: No Physically Abused: No Sexually Abused: No Housing Stability: Unknown (02/08/2023) Housing Stability Vital Sign Unable to Pay for Housing in the Last Year: No Number of Places Lived in the Last Year: Not on file Unstable Housing in the Last Year: No Past Medical History: Diagnosis Date Alcohol abuse Alcohol dependence with withdrawal (HCC) 08/31/2019 Alcohol intoxication without use disorder, uncomplicated (HCC) 10/01/2019 Alcohol use disorder 09/10/2022 Alcohol withdrawal syndrome with complication (HCC) 09/27/2021 Alcohol withdrawal, uncomplicated (HCC) 08/31/2019 Alcohol withdrawal, with unspecified complication (HCC) 10/02/2019 Alcohol withdrawal, with unspecified complication (HCC) 10/02/2019 Alcoholism (CMS/HCC) (HCC) Anxiety Arthritis Maria De Jesus Cerebral artery occlusion with cerebral infarction (HCC) Cerebrovascular disease Depression GERD (gastroesophageal reflux disease) Maria De Jesus Hypertension Insomnia Past Surgical History: Procedure Laterality Date COLONOSCOPY 06/10/2020 EGD/Dr Madison/[facility] CYST REMOVAL face EGD (HISTORICAL) 07/23/2022 Dr. Estrella-[facility] SMALL INTESTINE SURGERY UPPER GASTROINTESTINAL ENDOSCOPY 09/27/2021 normal WISDOM TOOTH EXTRACTION Family History Problem Relation Name Age of Onset Depression Sister Maria De Jesus Hogan Other ([id number]) Sister Maria De Jesus Hogan agoraphobia Arthritis Sister Maria De Jesus Hogan Cancer Mother Maria De Jesus Hogan colon rectal cancer; dx after age 50 Other ([id number]) Mother Maria De Jesus Hogan alcoholism Alcohol abuse Mother Maria De Jesus Hogan Stroke Mother Maria De Jesus Hogan Other ([id number]) Father Maria De Jesus Hogan h/o rheumatic fever, cardiac arrest due to bee sting Hypertension Father Maria De Jesus Hogan Review of Systems Review of Systems Constitutional: Positive for appetite change, diaphoresis and fatigue. Respiratory: Negative. Cardiovascular: Negative. Gastrointestinal: Positive for nausea. Negative for abdominal distention, diarrhea and vomiting. Musculoskeletal: Negative. Skin: Negative. Neurological: Positive for tremors. Negative for seizures. Psychiatric/Behavioral: Positive for sleep disturbance. Negative for dysphoric mood, hallucinations and suicidal ideas. The patient is nervous/anxious. All other systems reviewed and are negative. Physical Exam Vitals: 02/08/23 2341 02/09/23 0031 02/09/23 0512 02/09/23 1109 BP: 115/84 (!) 136/91 107/86 (!) 166/94 BP Location: Left arm Right arm Patient Position: Sitting Lying Lying Pulse: (!) 131 (!) 112 (!) 122 109 Resp: 17 16 Temp: (!) 38.2 C (100.7 F) 36.3 C (97.4 F) 36.6 C (97.8 F) TempSrc: Temporal Temporal Temporal SpO2: (!) 89% 91% 90% Weight: Physical Exam Vitals and nursing note reviewed. Constitutional: Appearance: He is diaphoretic. HENT: Mouth/Throat: Mouth: Mucous membranes are dry. Eyes: General: No scleral icterus. Cardiovascular: Rate and Rhythm: Tachycardia present. Pulmonary: Effort: Pulmonary effort is normal. Abdominal: General: There is no distension. Musculoskeletal: General: Normal range of motion. Skin: General: Skin is warm. Coloration: Skin is not pale. Neurological: Mental Status: He is alert and oriented to person, place, and time. Motor: Tremor present. No seizure activity. Psychiatric: Attention and Perception: He does not perceive auditory or visual hallucinations. Mood and Affect: Mood is anxious. Affect is flat. Speech: Speech normal. Behavior: Behavior normal. Behavior is cooperative. Thought Content: Thought content does not include homicidal or suicidal ideation. Cognition and Memory: Cognition and memory normal. Judgment: Judgment is inappropriate. Labs Last 24 hours: Recent Results (from the past 24 hour(s)) CBC auto differential Collection Time: 02/08/23 5:02 PM Result Value Ref Range Auto WBC 3.7 3.6 - 10.7 10*3/uL RBC 4.99 4.40 - 5.90 10*6/uL Hemoglobin 16.8 13.0 - 18.0 g/dL Hematocrit 49.0 40.0 - 52.0 % MCV 98.1 (H) 80.0 - 98.0 fL MCH 33.7 26.0 - 34.0 pg MCHC 34.4 32.0 - 36.0 % RDW 14.9 (H) 11.5 - 14.5 % Platelets 138 (L) 140 - 440 10*3/uL MPV 7.7 7.4 - 12.4 fL nRBC 0.0 0.0 - 2.0 /100 WBCs Neutrophils Relative 48.2 40.0 - 80.0 % Lymphocytes Relative 34.2 20.0 - 40.0 % Monocytes Relative 15.6 (H) 2.0 - 10.0 % Eosinophils Relative 1.0 1.0 - 6.0 % Basophils Relative 1.0 0.0 - 2.0 % Neutrophils Absolute 1.8 1.8 - 7.0 10*3/uL Lymphocytes Absolute 1.3 1.0 - 4.3 10*3/uL Monocytes Absolute 0.6 0.0 - 0.8 10*3/uL Eosinophils Absolute 0.0 0.0 - 0.5 10*3/uL Basophils Absolute 0.0 0.0 - 0.2 10*3/uL Ethanol Collection Time: 02/08/23 5:02 PM Result Value Ref Range ETHANOL IN SER/PLAS 0.448 (HH) 0.000 - 0.010 g/dL Comprehensive metabolic panel Collection Time: 02/08/23 5:02 PM Result Value Ref Range SODIUM 132 (L) 135 - 145 mmol/L POTASSIUM 4.4 3.5 - 5.1 mmol/L CHLORIDE 92 (L) 98 - 107 mmol/L CARBON DIOXIDE 26 22 - 30 mmol/L ANION GAP 14 (H) 3 - 13 mmol/L UREA NITROGEN 7 (L) 9 - 20 mg/dL CREATININE 0.65 (L) 0.66 - 1.25 mg/dL GLUCOSE 113 (H) 70 - 100 mg/dL CALCIUM 8.4 8.4 - 10.4 mg/dL AST (SGOT) 207 (H) 15 - 46 U/L ALT 194 (H) 0 - 49 U/L ALKALINE PHOSPHATASE 107 38 - 126 U/L ALBUMIN 4.4 3.5 - 5.0 g/dL BILIRUBIN, TOTAL 0.8 0.2 - 1.3 mg/dL TOTAL PROTEIN 7.9 6.3 - 8.2 g/dL eGFR >90.0 >60.0 mL/min/1.73m*2 SARS-CoV-2, Flu A/B, and RSV Combo Collection Time: 02/08/23 5:02 PM Specimen: Nasopharynx; Swab Result Value Ref Range SARS-CoV-2 Not Detected Not Detected Respiratory Syncytial Virus Not Detected Not Detected Influenza A Not Detected Not Detected Influenza B Not Detected Not Detected Complete Urinalysis Collection Time: 02/08/23 5:38 PM Result Value Ref Range Color, Urine Light Yellow Lt. Yellow Clarity, Urine Clear Clear pH, Urine 5.5 5.0 - 8.0 pH Leukocytes, Urine Negative Negative Estefani/uL Nitrite, Urine Negative Negative Protein, Urine Negative Negative mg/dL Glucose, Urine Normal Normal (<70) mg/dL Bilirubin, Urine Negative Negative mg/dL Ketones, Urine Negative Negative mg/dL Urobilinogen, Urine Normal Normal (0-1) mg/dL Blood, Urine Negative Negative mg/dL SPECIFIC GRAVITY OF URINE (NUMERIC) 1.005 1.005 - 1.030 Drug screen panel, emergency Collection Time: 02/08/23 5:38 PM Result Value Ref Range AMPHETAMINE SCREEN Negative BARBITURATES SCREEN Negative BENZODIAZEPINE SCREEN Negative COCAINE METAB. SCREEN Negative METHADONE SCREEN Negative OPIATES SCREEN Negative OXYCODONE SCREEN Negative PHENCYCLIDINE SCREEN Negative Medications clobetasol, , Topical, BID folic acid, 1 mg, Oral, Daily gabapentin, 600 mg, Oral, TID melatonin, 5 mg, Oral, Nightly nicotine, 1 patch, TransDERmal, Daily [START ON 02/10/2023] pantoprazole, 40 mg, Oral, qAM AC PHENobarbital, 97.2 mg, Oral, Q4H therapeutic multivitamin-minerals, 1 tablet, Oral, Daily thiamine, 100 mg, Oral, Daily PRN medications: acetaminophen, albuterol, aluminum & magnesium hydroxide-simethicone, hydrOXYzine pamoate, loperamide, magnesium hydroxide, ondansetron ODT Assessment Severe alcohol use disorder Nicotine use Elevated liver enzymes The last use of alcohol was 02/08/2023 Plan Phenobarb taper to manage withdrawal symptoms: 97.2mg every 4 hours for today. Thiamine/folic acid Restart home medication LFT in am PRN medications for withdrawal symptom management. Tobacco use and dependence Patient counseled on risks of continued tobacco use and the importance of cessation Will order nicotine patch at the patient's request CIWA scores per unit protocol. Encouraged to participate in all unit activities. Recovery plan: [facility] to assist with aftercare treatment options as patient stabilizes Tiki Ponce APRN - RESPIRATORY SUPPORT TECHNICIAN Addiction Medicine 02/09/2023 at 3:21 PM Note: Narrative portions of note written using [employer] dictation software. Efforts are made to dictate clearly and proofread but errors in dictation still may occur. Please reach out to author with any clarifying questions. Associated attestation - Jonatan Mckeon MD - 02/10/2023 10:18 AM EST I have reviewed the documented history, ROS, physical exam, and decision making and agree. [facility] 02-09-2023 History and physical note Addiction [facility] Detox Unit H&P Patient: Maria De Jesus Hogan Admit Date: 02/08/2023 Primary Care Physician: Lynda Rasheed MD Chief Complaint Patient presents with Alcohol Problem Pt presents with requesting ETOH detox. Pt states he drinks 6-9 tall boy beers every day. Last drink approx 30 mins ago. Denies withdraw seizures in the past. Vomiting Pt states he started vomiting several days ago and there are some blood streaks in the vomit. Not able to keep much food or water down. Mid/epigastric abd pain as well as diarrhea and chills/sweats. ED note Maria De Jesus Hogan is a 57 y.o. male with history that includes alcoholism presenting to the ED requesting alcohol detox. He drinks 6-9 tall boys a day. His last drink was just prior to ED arrival. He vomits daily. Today had some blood-streaked vomiting. He has become increasingly somnolent lately and at bedside says that she is mentally preparing herself for the day she comes home and finds the patient . This has prompted him to seek detox today. Has tried in the past and had been doing well in the past on Vivitrol but fell off the wagon after and daughter were drinking at home. Patient also smokes. History of Present Illness Maria De Jesus Hogan is a 57 y.o. year old male with a PMH of anxiety, depression, stroke, HTN, CAD, chronic cough, fatty liver, Lombardo's esophagus and a severe alcohol use disorder. He is well known to this Addiction Medicine Team. Patient has previous history of detox occurring on 10/25/2021, 02/15/2021 (left AMA), 06/09/20, 10/01/19, 08/31/19 (left AMA), 2016 (left AMA), and 2014 (left AMA), 09/10/2022. Patient was discharged with aftercare plans of MAT-Vivitrol. Patient reports going to his appointment in September and maintaining sobriety an additional 1 month later. Patient reports relapsing shortly after that appointment. Patient report to drinking 7-8 24 ounce beers daily. Last drink was 02/08/2023. Maria De Jesus Hogan started drinking at the age of [age]. Patient remembers that his drinking has been a problem for a long time. Patient has a remote history of benzo, cocaine and marijuana use in the 80s. Denies a history or current use of any other illicit substances. He has a history of blackouts. Denies a history of DTs or withdrawal seizures. Patient's longest period of sobriety is 1 year in 2019 by going to AA meetings. He has never been to residential treatment. He has a history of IOP at [facility] in [place]. He has a history of a psychiatric admission in 2015 for SI while intoxicated. Denies current SI/HI auditory or visual hallucination. Controlled Substance Monitoring OARRs Reviewed. and No signs of potential drug abuse or diversion identified. On admission, a urine drug screen was negative, and a serum alcohol level was 0.448. Current Substance Use: See HPI Substance Use History: Consequences: [] IVDA. [x] Blackouts related to substance use. [] History of withdrawal seizures. [] History of delirium tremens. [] History of overdoses. [x] Legal consequences of substance use. DUIx 1 Substance Use Disorder Criteria: 2-3 = mild; 4-5 = moderate; 6 or >6 = severe substance use disorder [x] Taking substance in larger amounts and/or for longer than intended. [x] Wanting to cut down or quit but not being able to. [] Spending a lot of time obtaining the substance. [x] Craving or a strong desire to use substance. [x] Repeatedly doesn't carry out major obligations due to substance use. [x] Using despite recurring social or interpersonal problems. [x] Reducing social, occupational, or recreational activities. [x] Recurrent use in physically hazardous situations. [x] Consistent use despite recurrent physical or psychological difficulties. [x] Tolerance (increased amounts to achieve intoxication or diminished effect). [x] Withdrawal syndrome or the substance is used to avoid withdrawal. Treatment History: [] Inpatient Rehab: denies [x] Chem Dep IOP: [facility] [x] Detoxifications: numerous. [x] 12 Step Meetings: yes [] Medication Assisted Treatment: denies. Psychiatric History: Current Psychiatrist: none Current Medications: see below Previous Medication Trials: unknown Diagnoses: depression, anxiety, depression, alcohol use disorder Psychiatric Hospitalizations: denies Previous Suicide Attempts: denies Adverse Childhood Events: denies Trauma History: denies History of Head Injuries: denies Remaining History: Social History Socioeconomic History Marital status: Spouse name: Not on file Number of children: Not on file Years of education: Not on file Highest education level: Not on file Occupational History Not on file Tobacco Use Smoking status: Every Day Packs/day: 2 Types: Cigarettes Start date: 10/10/1985 Smokeless tobacco: Never Vaping Use Vaping Use: Never used Substance and Sexual Activity Alcohol use: Yes Comment: 6-9 tall boy beers/day Drug use: No Sexual activity: Yes Partners: Female control/protection: Other Comment: live with Other Topics Concern Not on file Social History Narrative Not on file Social Determinants of Health Financial Resource Strain: Low Risk (02/09/2023) Overall Financial Resource Strain (CARDIA) Difficulty of Paying Living Expenses: Not very hard Food Insecurity: No Food Insecurity (02/09/2023) Hunger Vital Sign Worried About Running Out of Food in the Last Year: Never true Ran Out of Food in the Last Year: Never true Transportation Needs: No Transportation Needs (02/08/2023) PRAPARE - Transportation Lack of Transportation (Medical): No Lack of Transportation (Non-Medical): No Physical Activity: Inactive (02/09/2023) Exercise Vital Sign Days of Exercise per Week: 0 days Minutes of Exercise per Session: 0 min Stress: Stress Concern Present (02/09/2023) [place] [employer] - Occupational Stress Questionnaire Feeling of Stress : Very much Social Connections: Moderately Isolated (02/09/2023) Social Connection and Isolation Panel [NHANES] Frequency of Communication with Friends and Family: More than three times a week Frequency of Social Gatherings with Friends and Family: More than three times a week Attends Synagogue Services: Never Active Member of Clubs or Organizations: No Attends Club or Organization Meetings: Never Marital Status: Intimate Partner Violence: Not At Risk (07/22/2022) Humiliation, Afraid, Rape, and Kick questionnaire Fear of Current or Ex-Partner: No Emotionally Abused: No Physically Abused: No Sexually Abused: No Housing Stability: Unknown (02/08/2023) Housing Stability Vital Sign Unable to Pay for Housing in the Last Year: No Number of Places Lived in the Last Year: Not on file Unstable Housing in the Last Year: No Past Medical History: Diagnosis Date Alcohol abuse Alcohol dependence with withdrawal (HCC) 08/31/2019 Alcohol intoxication without use disorder, uncomplicated (HCC) 10/01/2019 Alcohol use disorder 09/10/2022 Alcohol withdrawal syndrome with complication (HCC) 09/27/2021 Alcohol withdrawal, uncomplicated (HCC) 08/31/2019 Alcohol withdrawal, with unspecified complication (HCC) 10/02/2019 Alcohol withdrawal, with unspecified complication (HCC) 10/02/2019 Alcoholism (CMS/HCC) (HCC) Anxiety Arthritis Maria De Jesus Cerebral artery occlusion with cerebral infarction (HCC) Cerebrovascular disease Depression GERD (gastroesophageal reflux disease) Maria De Jesus Hypertension Insomnia Past Surgical History: Procedure Laterality Date COLONOSCOPY 06/10/2020 EGD/Dr Madison/B CYST REMOVAL face EGD (HISTORICAL) 07/23/2022 Dr. Estrella-[facility] SMALL INTESTINE SURGERY UPPER GASTROINTESTINAL ENDOSCOPY 09/27/2021 normal WISDOM TOOTH EXTRACTION Family History Problem Relation Name Age of Onset Depression Sister Maria De Jesus Hogan Other ([id number]) Sister Maria De Jesus Hogan agoraphobia Arthritis Sister Maria De Jesus Hogan Cancer Mother Maria De Jesus Hogan colon rectal cancer; dx after age 50 Other ([id number]) Mother Maria De Jesus Hogan alcoholism Alcohol abuse Mother Maria De Jesus Hogan Stroke Mother Maria De Jesus Hogan Other ([id number]) Father Maria De Jesus Hogan h/o rheumatic fever, cardiac arrest due to bee sting Hypertension Father Maria De Jesus Hoagn Review of Systems Review of Systems Constitutional: Positive for appetite change, diaphoresis and fatigue. Respiratory: Negative. Cardiovascular: Negative. Gastrointestinal: Positive for nausea. Negative for abdominal distention, diarrhea and vomiting. Musculoskeletal: Negative. Skin: Negative. Neurological: Positive for tremors. Negative for seizures. Psychiatric/Behavioral: Positive for sleep disturbance. Negative for dysphoric mood, hallucinations and suicidal ideas. The patient is nervous/anxious. All other systems reviewed and are negative. Physical Exam Vitals: 02/08/23 2341 02/09/23 0031 02/09/23 0512 02/09/23 1109 BP: 115/84 (!) 136/91 107/86 (!) 166/94 BP Location: Left arm Right arm Patient Position: Sitting Lying Lying Pulse: (!) 131 (!) 112 (!) 122 109 Resp: 17 16 Temp: (!) 38.2 C (100.7 F) 36.3 C (97.4 F) 36.6 C (97.8 F) TempSrc: Temporal Temporal Temporal SpO2: (!) 89% 91% 90% Weight: Physical Exam Vitals and nursing note reviewed. Constitutional: Appearance: He is diaphoretic. HENT: Mouth/Throat: Mouth: Mucous membranes are dry. Eyes: General: No scleral icterus. Cardiovascular: Rate and Rhythm: Tachycardia present. Pulmonary: Effort: Pulmonary effort is normal. Abdominal: General: There is no distension. Musculoskeletal: General: Normal range of motion. Skin: General: Skin is warm. Coloration: Skin is not pale. Neurological: Mental Status: He is alert and oriented to person, place, and time. Motor: Tremor present. No seizure activity. Psychiatric: Attention and Perception: He does not perceive auditory or visual hallucinations. Mood and Affect: Mood is anxious. Affect is flat. Speech: Speech normal. Behavior: Behavior normal. Behavior is cooperative. Thought Content: Thought content does not include homicidal or suicidal ideation. Cognition and Memory: Cognition and memory normal. Judgment: Judgment is inappropriate. Labs Last 24 hours: Recent Results (from the past 24 hour(s)) CBC auto differential Collection Time: 02/08/23 5:02 PM Result Value Ref Range Auto WBC 3.7 3.6 - 10.7 10*3/uL RBC 4.99 4.40 - 5.90 10*6/uL Hemoglobin 16.8 13.0 - 18.0 g/dL Hematocrit 49.0 40.0 - 52.0 % MCV 98.1 (H) 80.0 - 98.0 fL MCH 33.7 26.0 - 34.0 pg MCHC 34.4 32.0 - 36.0 % RDW 14.9 (H) 11.5 - 14.5 % Platelets 138 (L) 140 - 440 10*3/uL MPV 7.7 7.4 - 12.4 fL nRBC 0.0 0.0 - 2.0 /100 WBCs Neutrophils Relative 48.2 40.0 - 80.0 % Lymphocytes Relative 34.2 20.0 - 40.0 % Monocytes Relative 15.6 (H) 2.0 - 10.0 % Eosinophils Relative 1.0 1.0 - 6.0 % Basophils Relative 1.0 0.0 - 2.0 % Neutrophils Absolute 1.8 1.8 - 7.0 10*3/uL Lymphocytes Absolute 1.3 1.0 - 4.3 10*3/uL Monocytes Absolute 0.6 0.0 - 0.8 10*3/uL Eosinophils Absolute 0.0 0.0 - 0.5 10*3/uL Basophils Absolute 0.0 0.0 - 0.2 10*3/uL Ethanol Collection Time: 02/08/23 5:02 PM Result Value Ref Range ETHANOL IN SER/PLAS 0.448 (HH) 0.000 - 0.010 g/dL Comprehensive metabolic panel Collection Time: 02/08/23 5:02 PM Result Value Ref Range SODIUM 132 (L) 135 - 145 mmol/L POTASSIUM 4.4 3.5 - 5.1 mmol/L CHLORIDE 92 (L) 98 - 107 mmol/L CARBON DIOXIDE 26 22 - 30 mmol/L ANION GAP 14 (H) 3 - 13 mmol/L UREA NITROGEN 7 (L) 9 - 20 mg/dL CREATININE 0.65 (L) 0.66 - 1.25 mg/dL GLUCOSE 113 (H) 70 - 100 mg/dL CALCIUM 8.4 8.4 - 10.4 mg/dL AST (SGOT) 207 (H) 15 - 46 U/L ALT 194 (H) 0 - 49 U/L ALKALINE PHOSPHATASE 107 38 - 126 U/L ALBUMIN 4.4 3.5 - 5.0 g/dL BILIRUBIN, TOTAL 0.8 0.2 - 1.3 mg/dL TOTAL PROTEIN 7.9 6.3 - 8.2 g/dL eGFR >90.0 >60.0 mL/min/1.73m*2 SARS-CoV-2, Flu A/B, and RSV Combo Collection Time: 02/08/23 5:02 PM Specimen: Nasopharynx; Swab Result Value Ref Range SARS-CoV-2 Not Detected Not Detected Respiratory Syncytial Virus Not Detected Not Detected Influenza A Not Detected Not Detected Influenza B Not Detected Not Detected Complete Urinalysis Collection Time: 02/08/23 5:38 PM Result Value Ref Range Color, Urine Light Yellow Lt. Yellow Clarity, Urine Clear Clear pH, Urine 5.5 5.0 - 8.0 pH Leukocytes, Urine Negative Negative Estefani/uL Nitrite, Urine Negative Negative Protein, Urine Negative Negative mg/dL Glucose, Urine Normal Normal (<70) mg/dL Bilirubin, Urine Negative Negative mg/dL Ketones, Urine Negative Negative mg/dL Urobilinogen, Urine Normal Normal (0-1) mg/dL Blood, Urine Negative Negative mg/dL SPECIFIC GRAVITY OF URINE (NUMERIC) 1.005 1.005 - 1.030 Drug screen panel, emergency Collection Time: 02/08/23 5:38 PM Result Value Ref Range AMPHETAMINE SCREEN Negative BARBITURATES SCREEN Negative BENZODIAZEPINE SCREEN Negative COCAINE METAB. SCREEN Negative METHADONE SCREEN Negative OPIATES SCREEN Negative OXYCODONE SCREEN Negative PHENCYCLIDINE SCREEN Negative Medications clobetasol, , Topical, BID folic acid, 1 mg, Oral, Daily gabapentin, 600 mg, Oral, TID melatonin, 5 mg, Oral, Nightly nicotine, 1 patch, TransDERmal, Daily [START ON 02/10/2023] pantoprazole, 40 mg, Oral, qAM AC PHENobarbital, 97.2 mg, Oral, Q4H therapeutic multivitamin-minerals, 1 tablet, Oral, Daily thiamine, 100 mg, Oral, Daily PRN medications: acetaminophen, albuterol, aluminum & magnesium hydroxide-simethicone, hydrOXYzine pamoate, loperamide, magnesium hydroxide, ondansetron ODT Assessment Severe alcohol use disorder Nicotine use Elevated liver enzymes The last use of alcohol was 02/08/2023 Plan Phenobarb taper to manage withdrawal symptoms: 97.2mg every 4 hours for today. Thiamine/folic acid Restart home medication LFT in am PRN medications for withdrawal symptom management. Tobacco use and dependence Patient counseled on risks of continued tobacco use and the importance of cessation Will order nicotine patch at the patient's request CIWA scores per unit protocol. Encouraged to participate in all unit activities. Recovery plan: [facility] to assist with aftercare treatment options as patient stabilizes Tiki Ponce APRN - [facility] 02/09/2023 at 3:21 PM Note: Narrative portions of note written using [employer] dictation software. Efforts are made to dictate clearly and proofread but errors in dictation still may occur. Please reach out to author with any clarifying questions. Associated attestation - Jonatan Mckeon MD - 02/10/2023 10:18 AM EST I have reviewed the documented history, ROS, physical exam, and decision making and agree. documented in this encounter [facility] 02-09-2023 Plan of care note Problem: Sensory Perceptual Alteration as Evidenced by Goal: Understands least restrictive measures Outcome: Progressing Goal: Free from restraint events Outcome: Progressing Problem: Ineffective Coping Goal: Identifies healthy coping skills Outcome: Progressing Problem: Potential for Substance Withdrawal Goal: Verbalizes signs/symptoms of withdrawal Outcome: Progressing Goal: Reports signs/symptoms of withdrawal Outcome: Progressing [facility] 02-09-2023 Nurse Note Patient arrived to unit via stretcher escorted by protective services and EMT's. Patient Ambulated from stretcher at nursing station to room 413 independently. Gait steady. A & O x 4. No complaints of pain. Patient signed in. Oriented to unit and room. Patient called from unit phone. PRN trazodone 100 mg PO administered for sleep. [facility] 02-08-2023 Emergency department Note Spoke with 4E about patient departure and provider notification. Kassie Vargas RN 02/08/232302 [facility] 02-08-2023 Emergency department Note Spoke with 4E about patient departure and provider notification. Kassie Vargas RN 02/08/232302 Protective services at bedside for wanding. Kassie Vargas RN 02/08/23 4367 [facility] arrived. Kassie Vargas RN 02/08/232246 Protective services at bedside to do belongings check and wanding. Patient still has procession of pillow and cellular device. Patient verbalized understanding of phone and pillow will be secured before departure of unit. Kassie Vargas RN 02/08/232035 Patient ambulatory to the restroom with steady gait. Kassie Vargas RN 02/08/232033 Snack and beverage provided to patient. Kassie Vargas RN 02/08/232016 Report called to 4E Jen Nunez RN 02/08/231935 Emergency Department Encounter Pt Name: Maria De Jesus Hogan Birthdate 1965 Date of evaluation: 02/08/2023 Provider: ANUSHA KOTHARI MD CHIEF COMPLAINT Chief Complaint Patient presents with Alcohol Problem Pt presents with requesting ETOH detox. Pt states he drinks 6-9 tall boy beers every day. Last drink approx 30 mins ago. Denies withdraw seizures in the past. Vomiting Pt states he started vomiting several days ago and there are some blood streaks in the vomit. Not able to keep much food or water down. Mid/epigastric abd pain as well as diarrhea and chills/sweats. HISTORY OF PRESENT ILLNESS HPI Maria De Jesus Hogan is a 57 y.o. male with history that includes alcoholism presenting to the ED requesting alcohol detox. He drinks 6-9 tall boys a day. His last drink was just prior to ED arrival. He vomits daily. Today had some blood-streaked vomiting. He has become increasingly somnolent lately and at bedside says that she is mentally preparing herself for the day she comes home and finds the patient . This has prompted him to seek detox today. Has tried in the past and had been doing well in the past on Vivitrol but fell off the wagon after and daughter were drinking at home. Patient also smokes. Nursing Notes were reviewed. Past Medical History: Diagnosis Date Alcohol abuse Alcohol dependence with withdrawal (HCC) 08/31/2019 Alcohol intoxication without use disorder, uncomplicated (HCC) 10/01/2019 Alcohol withdrawal, uncomplicated (HCC) 08/31/2019 Alcohol withdrawal, with unspecified complication (HCC) 10/02/2019 Alcohol withdrawal, with unspecified complication (HCC) 10/02/2019 Alcoholism (CMS/HCC) (HCC) Anxiety Arthritis Maria De Jesus Cerebral artery occlusion with cerebral infarction (HCC) Cerebrovascular disease Depression GERD (gastroesophageal reflux disease) Maria De Jesus Hypertension Insomnia REVIEW OF SYSTEMS Several elements of the ROS reviewed and otherwise acutely negative except as in the HPI. PHYSICAL EXAM ED Triage Vitals [02/08/23 1646] Temp Heart Rate Resp BP 36.4 C (97.6 F) 98 20 (!) 134/99 SpO2 Temp Source Heart Rate Source Patient Position 93 % Temporal Monitor -- BP Location FiO2 (%) -- -- Physical Exam Vitals and nursing note reviewed. Constitutional: General: He is not in acute distress. Appearance: He is well-developed. HENT: Head: Normocephalic and atraumatic. Eyes: Comments: Bilateral conjunctival injection Cardiovascular: Rate and Rhythm: Normal rate and regular rhythm. Heart sounds: No murmur heard. Pulmonary: Effort: Pulmonary effort is normal. No respiratory distress. Breath sounds: Wheezing (diffuse, mild) present. Abdominal: Palpations: Abdomen is soft. Tenderness: There is no abdominal tenderness. Comments: Abdomen is full Musculoskeletal: General: No swelling. Cervical back: Neck supple. Skin: General: Skin is warm and dry. Capillary Refill: Capillary refill takes less than 2 seconds. Neurological: Mental Status: He is alert. Comments: No tremor; awake and alert Psychiatric: Mood and Affect: Affect is not tearful. Behavior: Behavior is not agitated, aggressive or combative. Behavior is cooperative. EMERGENCY DEPARTMENT COURSE and DIFFERENTIAL DIAGNOSIS/MDM: Vitals: Vitals: 02/08/23 1646 BP: (!) 134/99 Pulse: 98 Resp: 20 Temp: 36.4 C (97.6 F) TempSrc: Temporal SpO2: 93% Weight: 95.3 kg (210 lb) The patient presented with a chief complaint of requesting alcohol detox. Medical clearance labs were pursued including a CBC which showed no anemia or leukocytosis but showed slight thrombocytopenia, CMP, ethanol level, drug panel and COVID/flu/RSV swab. Patient was treated with folic acid and thiamine. He was given a nicotine patch. He was placed under CIWA precautions. I reviewed medical clearance labs noting slight elevations of AST and ALT, otherwise work-up was clinically unremarkable. I discussed case with Dr. Mckeon who is familiar with the patient and accepts patient to detox. ED Course as of 02/08/231830Feb 08, [id number] Ethanol level is quite elevated at 0.448. [AK] 175 UA not suggestive of UTI. [AK] ED Course User Index [AK] Anusha Kothari MD Diagnoses as of 02/08/231830 Alcoholism (CMS/HCC) (HCC) Alcohol withdrawal syndrome without complication (HCC) Social determinants of health affecting care: Alcoholism ED medications managed: Medications thiamine (Vitamin B1) tablet 100 mg (100 mg Oral Given 02/08/231727) folic acid (Folvite) tablet 1 mg (1 mg Oral Given 02/08/231727) LORazepam (Ativan) tablet 1 mg (1 mg Oral Given 02/08/231737) Or LORazepam (Ativan) injection 1 mg ( IntraVENous See Alternative 02/08/231737) Or LORazepam (Ativan) tablet 2 mg ( Oral See Alternative 02/08/231737) Or LORazepam (Ativan) injection 2 mg ( IntraVENous See Alternative 02/08/231737) Or LORazepam (Ativan) tablet 3 mg ( Oral See Alternative 02/08/231737) Or LORazepam (Ativan) injection 3 mg ( IntraVENous See Alternative 02/08/231737) Or LORazepam (Ativan) tablet 4 mg ( Oral See Alternative 02/08/231737) Or LORazepam (Ativan) injection 4 mg ( IntraVENous See Alternative 02/08/231737) nicotine (Nicoderm, Step 1) 21 MG/24HR patch 1 patch (1 patch TransDERmal Medication Applied 02/08/23 6579) Followed by nicotine (Nicoderm, Step 2) 14 MG/24HR patch 1 patch (has no administration in time range) Followed by nicotine (Nicoderm, Step 3) 7 MG/24HR patch 1 patch (has no administration in time range) DISPOSITION/PLAN Admit 02/08/2023 06:26:49 PM PATIENT REFERRED TO: No follow-up provider specified. DISCHARGE MEDICATIONS: New Prescriptions No medications on file Anusha Kothari MD Emergency Medicine Anusha Kothari MD 02/08/231827 documented in this encounter [facility] 02-08-2023 Emergency department Note Protective services at bedside for wanding. Kassie Vargas RN 02/08/232247 [facility] 02-08-2023 Emergency department Note [facility] arrived. Kassie Vargas RN 02/08/232246 [facility] 02-08-2023 Emergency department Note Protective services at bedside to do belongings check and wanding. Patient still has procession of pillow and cellular device. Patient verbalized understanding of phone and pillow will be secured before departure of unit. Kassie Vargas RN 02/08/232035 [facility] 02-08-2023 Emergency department Note Patient ambulatory to the restroom with steady gait. Kassie Vargas RN 02/08/232033 [facility] 02-08-2023 Emergency department Note Snack and beverage provided to patient. Kassie Vargas RN 02/08/232016 [facility] 02-08-2023 Emergency department Note Report called to 4E Jen Nunez RN 02/08/231935 [facility] 02-08-2023 Note Formatting of this n ote might be different from the original. ACC RN in to see pt. Pt resting in bed with eyes closed, responds to verbal stimuli. Pt voices concern about vomiting blood and states that is why he came to the ER. I explained to pt connection between esophageal varices and alcohol use and pt states he has a history of this and had surgery approx 6 months to 1 year ago for same thing. Pt states he was drinking very heavily at that point but then went through detox and was sober for 6 months. Pt was prescribed ReVia for alcohol abuse and felt this worked very well for him. Pt states his family members continued bringing alcohol into the home and this is what led him to start drinking again. Pt states he has been drinking 10-11 natty daddy tall boys per day and enjoys drinking. He states he has more fun. However, due to health reasons, pt is interested in detox and restarting ReVia for alcohol use. Pt is also interested in attending OP IOP and connecting with a PRC from [facility]. Pt was provided with informational brochures on First Step, IOP, PRC, and Vivitrol. [facility] 02-08-2023 Note Formatting of this n ote might be different from the original. ACC RN in to see pt. Pt resting in bed with eyes closed, responds to verbal stimuli. Pt voices concern about vomiting blood and states that is why he came to the ER. I explained to pt connection between esophageal varices and alcohol use and pt states he has a history of this and had surgery approx 6 months to 1 year ago for same thing. Pt states he was drinking very heavily at that point but then went through detox and was sober for 6 months. Pt was prescribed ReVia for alcohol abuse and felt this worked very well for him. Pt states his family members continued bringing alcohol into the home and this is what led him to start drinking again. Pt states he has been drinking 10-11 natty daddy tall boys per day and enjoys drinking. He states he has more fun. However, due to health reasons, pt is interested in detox and restarting ReVia for alcohol use. Pt is also interested in attending OP IOP and connecting with a PRC from [facility]. Pt was provided with informational brochures on [facility] Step, IOP, PRC, and Vivitrol. [facility] 02-08-2023 Note NOTE: This result is for medical treatment only. Analysis performed using non-forensic procedures. [facility] 02-08-2023 Physician Emergency department Note Emergency Department Encounter Pt Name: Maria De Jesus Hogan Birthdate 1965 Date of evaluation: 02/08/2023 Provider: ANUSHA KOTHARI MD CHIEF COMPLAINT Chief Complaint Patient presents with Alcohol Problem Pt presents with requesting ETOH detox. Pt states he drinks 6-9 tall boy beers every day. Last drink approx 30 mins ago. Denies withdraw seizures in the past. Vomiting Pt states he started vomiting several days ago and there are some blood streaks in the vomit. Not able to keep much food or water down. Mid/epigastric abd pain as well as diarrhea and chills/sweats. HISTORY OF PRESENT ILLNESS HPI Maria De Jesus Hogan is a 57 y.o. male with history that includes alcoholism presenting to the ED requesting alcohol detox. He drinks 6-9 tall boys a day. His last drink was just prior to ED arrival. He vomits daily. Today had some blood-streaked vomiting. He has become increasingly somnolent lately and at bedside says that she is mentally preparing herself for the day she comes home and finds the patient . This has prompted him to seek detox today. Has tried in the past and had been doing well in the past on Vivitrol but fell off the wagon after and daughter were drinking at home. Patient also smokes. Nursing Notes were reviewed. Past Medical History: Diagnosis Date Alcohol abuse Alcohol dependence with withdrawal (HCC) 08/31/2019 Alcohol intoxication without use disorder, uncomplicated (HCC) 10/01/2019 Alcohol withdrawal, uncomplicated (HCC) 08/31/2019 Alcohol withdrawal, with unspecified complication (HCC) 10/02/2019 Alcohol withdrawal, with unspecified complication (HCC) 10/02/2019 Alcoholism (CMS/HCC) (HCC) Anxiety Arthritis Maria De Jesus Cerebral artery occlusion with cerebral infarction (HCC) Cerebrovascular disease Depression GERD (gastroesophageal reflux disease) Maria De Jesus Hypertension Insomnia REVIEW OF SYSTEMS Several elements of the ROS reviewed and otherwise acutely negative except as in the HPI. PHYSICAL EXAM ED Triage Vitals [02/08/23 1646] Temp Heart Rate Resp BP 36.4 C (97.6 F) 98 20 (!) 134/99 SpO2 Temp Source Heart Rate Source Patient Position 93 % Temporal Monitor -- BP Location FiO2 (%) -- -- Physical Exam Vitals and nursing note reviewed. Constitutional: General: He is not in acute distress. Appearance: He is well-developed. HENT: Head: Normocephalic and atraumatic. Eyes: Comments: Bilateral conjunctival injection Cardiovascular: Rate and Rhythm: Normal rate and regular rhythm. Heart sounds: No murmur heard. Pulmonary: Effort: Pulmonary effort is normal. No respiratory distress. Breath sounds: Wheezing (diffuse, mild) present. Abdominal: Palpations: Abdomen is soft. Tenderness: There is no abdominal tenderness. Comments: Abdomen is full Musculoskeletal: General: No swelling. Cervical back: Neck supple. Skin: General: Skin is warm and dry. Capillary Refill: Capillary refill takes less than 2 seconds. Neurological: Mental Status: He is alert. Comments: No tremor; awake and alert Psychiatric: Mood and Affect: Affect is not tearful. Behavior: Behavior is not agitated, aggressive or combative. Behavior is cooperative. EMERGENCY DEPARTMENT COURSE and DIFFERENTIAL DIAGNOSIS/MDM: Vitals: Vitals: 02/08/23 1646 BP: (!) 134/99 Pulse: 98 Resp: 20 Temp: 36.4 C (97.6 F) TempSrc: Temporal SpO2: 93% Weight: 95.3 kg (210 lb) The patient presented with a chief complaint of requesting alcohol detox. Medical clearance labs were pursued including a CBC which showed no anemia or leukocytosis but showed slight thrombocytopenia, CMP, ethanol level, drug panel and COVID/flu/RSV swab. Patient was treated with folic acid and thiamine. He was given a nicotine patch. He was placed under CIWA precautions. I reviewed medical clearance labs noting slight elevations of AST and ALT, otherwise work-up was clinically unremarkable. I discussed case with Dr. Mckeon who is familiar with the patient and accepts patient to detox. ED Course as of 02/08/231830Feb 08, [id number] Ethanol level is quite elevated at 0.448. [AK] 1751 UA not suggestive of UTI. [AK] ED Course User Index [AK] Anusha Kothari MD Diagnoses as of 02/08/231830 Alcoholism (CMS/HCC) (HCC) Alcohol withdrawal syndrome without complication (HCC) Social determinants of health affecting care: Alcoholism ED medications managed: Medications thiamine (Vitamin B1) tablet 100 mg (100 mg Oral Given 02/08/231727) folic acid (Folvite) tablet 1 mg (1 mg Oral Given 02/08/231727) LORazepam (Ativan) tablet 1 mg (1 mg Oral Given 02/08/231737) Or LORazepam (Ativan) injection 1 mg ( IntraVENous See Alternative 02/08/231737) Or LORazepam (Ativan) tablet 2 mg ( Oral See Alternative 02/08/231737) Or LORazepam (Ativan) injection 2 mg ( IntraVENous See Alternative 02/08/231737) Or LORazepam (Ativan) tablet 3 mg ( Oral See Alternative 02/08/231737) Or LORazepam (Ativan) injection 3 mg ( IntraVENous See Alternative 02/08/231737) Or LORazepam (Ativan) tablet 4 mg ( Oral See Alternative 02/08/231737) Or LORazepam (Ativan) injection 4 mg ( IntraVENous See Alternative 02/08/231737) nicotine (Nicoderm, Step 1) 21 MG/24HR patch 1 patch (1 patch TransDERmal Medication Applied 02/08/231727) Followed by nicotine (Nicoderm, Step 2) 14 MG/24HR patch 1 patch (has no administration in time range) Followed by nicotine (Nicoderm, Step 3) 7 MG/24HR patch 1 patch (has no administration in time range) DISPOSITION/PLAN Admit 02/08/2023 06:26:49 PM PATIENT REFERRED TO: No follow-up provider specified. DISCHARGE MEDICATIONS: New Prescriptions No medications on file Anusha Kothari MD Emergency Medicine Anusha Kothari MD 02/08/23 1828 [facility] [employer] Work Phone: 01-28-2023 Telephone encounter Note Last OV:12/26/22 Scheduled:04/03/23 [facility] 01-28-2023 Miscellaneous Notes Last OV:12/26/22 Scheduled:04/03/23 documented in this encounter [facility] 12-26-2022 History of Present illness Narrative Images from the original note were not included. [facility] [address] [place] [address] [address] [facility] [address] Dept: [phone] Dept Loc: [phone] Reason for Visit: Follow-up Assessment and Plan 1. Screening for colon cancer - [facility] General Surgery - Sotero Madsen MD 2. 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 He is to continue Protonix. 3. Psoriasiform seborrheic dermatitis is a chronic stable issue continue Dovonex. 4. Alcohol use disorder, severe (HCC) patient currently sees the psychiatry alcohol addiction program through [facility]. He is getting medication through them. He is to continue his thiamine and vitamin as discussed. As his red blood cell count is mildly decreased. We will recheck a CBC in 3 months. 5. Lumbar back pain with radiculopathy affecting lower extremity declines physical therapy chronic stable issue continue gabapentin 6. Cigarette smoker discussed the deleterious effects of smoking encouraged to stop smoking patient on nicotine patch. current treatment plan is effective, no change in therapy, orders and follow up as documented in EMR, lab results reviewed with patient, repeat labs ordered prior to next appointment, reviewed compliance with lifestyle measures, reviewed diet, exercise and weight control, reviewed medications and side effects in detail Return visit in 3 months. Subjective HPI this is a 57-year-old female patient with multiple medical problems. Patient has a history of alcohol addiction currently doing well in this aspect. Seeing [facility] program. Currently on thiamine multivitamin as well as treatment he states through with addiction program. Patient also has a history of psoriasis currently on Dovonex doing well with no issues he also has a history of lower back pain is past up with a lot of physical labor. He states pain radiates to his legs at times x-ray showed arthritis. Patient is not really interested in any physical therapy he is still very active he feels its not affecting his activities of daily living also in August 2021 he was diagnosed with Lombardo's he has been on Protonix ever since. He has not had any issues with this. Review of Systems Constitutional: Negative. Negative for activity change, appetite change and fever. HENT: Negative. Negative for congestion. Eyes: Negative. Negative for discharge. Respiratory: Negative. Negative for chest tightness. Cardiovascular: Negative. Gastrointestinal: Negative. Endocrine: Negative. Negative for cold intolerance. Genitourinary: Negative for difficulty urinating. Musculoskeletal: Negative. Neurological: Negative. Negative for dizziness, facial asymmetry and headaches. Hematological: Negative. Allergies Allergen Reactions Bee Venom Swelling Nickel Rash Tramadol Nausea And Vomiting Other reaction(s): [facility] Outpatient Medications Prior to Visit Medication Sig Dispense Refill albuterol 108 (90 Base) MCG/ACT inhaler Inhale 2 puffs every 6 hours as needed for wheezing or shortness of breath. 18 g 3 calcipotriene (Dovonex) 0.005 % cream Apply topically 2 times daily. 60 g 3 clobetasol (Temovate) 0.05 % cream Apply topically 2 times daily. 15 g 3 gabapentin (Neurontin) 600 MG tablet Take 1 tablet (600 mg) by mouth 3 times daily. 90 tablet 2 melatonin 5 MG tablet Take 1 tablet (5 mg) by mouth Nightly. 90 tablet 1 Multiple Vitamins tablet Take 1 tablet by mouth daily. 90 tablet 1 nicotine (Nicoderm, Step 2) 14 MG/24HR patch Place 1 patch on the skin daily. Do not start before October 23, 2022. 30 patch 0 nicotine polacrilex (Commit) 2 MG lozenge Dissolve 1 lozenge (2 mg) in the mouth every 2 hours as needed for smoking cessation (nicotine craving, urge to smoke). 100 lozenge 1 pantoprazole (ProtoNix) 40 MG EC tablet Take 1 tablet (40 mg) by mouth every morning (before breakfast). 30 tablet 3 Thiamine Mononitrate (Vitamin B1) 100 MG tablet Take 1 tablet (100 mg) by mouth daily. 90 tablet 1 naltrexone ER (Vivitrol) injection Inject 4 mL (380 mg) into the shoulder, thigh, or buttocks every 28 (twenty-eight) days for 3 doses. Do not start before October 12, 2022. 4 mL 2 No facility-administered medications prior to visit. Patient Active Problem List Diagnosis Elevated liver enzymes Hematemesis Cigarette smoker Hepatic steatosis Alcohol use disorder, severe (HCC) Anxiety Alcohol withdrawal syndrome with complication (HCC) Depression Insomnia Elevated liver function tests Esophagitis Lombardo's esophagus determined by endoscopy Lombardo esophagus Chronic alcohol abuse Atelectasis Hyponatremia Pneumatosis coli UGIB (upper gastrointestinal bleed) Hypochloremia Transaminitis Hematemesis with nausea Alcohol use disorder Alcohol withdrawal syndrome without complication (HCC) Past Medical History: Diagnosis Date Alcohol abuse Alcohol dependence with withdrawal (HCC) 08/31/2019 Alcohol intoxication without use disorder, uncomplicated (HCC) 10/01/2019 Alcohol withdrawal, uncomplicated (HCC) 08/31/2019 Alcohol withdrawal, with unspecified complication (HCC) 10/02/2019 Alcohol withdrawal, with unspecified complication (HCC) 10/02/2019 Alcoholism (CMS/HCC) (HCC) Anxiety Arthritis Maria De Jesus Cerebral artery occlusion with cerebral infarction (HCC) Cerebrovascular disease Depression GERD (gastroesophageal reflux disease) Maria De Jesus Hypertension Insomnia Social History Tobacco Use Smoking status: Every Day Packs/day: 1 Types: Cigarettes Start date: 10/10/1985 Smokeless tobacco: Never Substance Use Topics Alcohol use: Not Currently Past Surgical History: Procedure Laterality Date COLONOSCOPY 06/10/2020 EGD/Dr Madison/AMANDA CYST REMOVAL face EGD (HISTORICAL) 07/23/2022 Dr. Estrella-[facility] SMALL INTESTINE SURGERY UPPER GASTROINTESTINAL ENDOSCOPY 09/27/2021 normal WISDOM TOOTH EXTRACTION Family History Problem Relation Name Age of Onset Depression Sister Maria De Jesus Hogan Other ([id number]) Sister Maria De Jesus Hogan agoraphobia Arthritis Sister Maria De Jesus Hogan Cancer Mother Maria De Jesus Hogan colon rectal cancer; dx after age 50 Other ([id number]) Mother Maria De Jesus Hogan alcoholism Alcohol abuse Mother Maria De Jesus Hogan Stroke Mother Maria De Jesus Hogan Other ([id number]) Father Maria De Jesus Hogan h/o rheumatic fever, cardiac arrest due to bee sting Hypertension Father Maria De Jesus Hogan Health Maintenance Topic Date Due Hepatitis B Vaccines (1 of 3 - 3-dose series) Never done HIV Screening Never done Colorectal Cancer Screening Never done MMR Vaccines (1 of 1 - Standard series) Never done DTaP/Tdap/Td Vaccines (1 - Tdap) Never done Hepatitis A Vaccines (1 of 2 - Risk 2-dose series) Never done Zoster Vaccines (1 of 2) Never done COVID-19 Vaccine (4 - Pfizer series) 05/04/2021 Influenza Vaccine (1) 11/30/2022 Depresssion Monitoring 04/11/2023 Pneumococcal Vaccine: Pediatrics (0 to 5 Years) and At-Risk Patients (6 to 64 Years) (2 - PCV) 09/26/2023 Diabetes Screening 11/02/2023 Lipid Panel 07/10/2027 Hepatitis C Screening Completed HIB Vaccines Aged Out IPV Vaccines Aged Out Meningococcal Vaccine Aged Out Rotavirus Vaccines Aged Out HPV Vaccines Aged Out Objective BP 116/82 Pulse 98 Temp 36.8 C (98.3 F) Ht 5' 10 (1.778 m) Wt 223 lb (101 kg) SpO2 93% BMI 32.00 kg/m Physical Exam Vitals and nursing note reviewed. Constitutional: Appearance: Normal appearance. HENT: Head: Normocephalic and atraumatic. Nose: No congestion or rhinorrhea. Mouth/Throat: Mouth: Mucous membranes are moist. Pharynx: Oropharynx is clear. No posterior oropharyngeal erythema. Eyes: Extraocular Movements: Extraocular movements intact. Conjunctiva/sclera: Conjunctivae normal. Pupils: Pupils are equal, round, and reactive to light. Cardiovascular: Pulses: Normal pulses. Heart sounds: Normal heart sounds. No murmur heard. Pulmonary: Effort: Pulmonary effort is normal. No respiratory distress. Breath sounds: Normal breath sounds. No wheezing. Abdominal: General: Abdomen is flat. Bowel sounds are normal. Palpations: Abdomen is soft. Tenderness: There is no abdominal tenderness. Musculoskeletal: General: No swelling. Cervical back: Normal range of motion. Skin: General: Skin is warm and dry. Neurological: General: No focal deficit present. Mental Status: He is alert and oriented to person, place, and time. Mental status is at baseline. Psychiatric: Mood and Affect: Mood normal. Data Reviewed and Summarized Labs: Lab Results Component Value Date WBC 9.0 09/29/2022 HGB 14.2 09/29/2022 HCT 41.5 09/29/2022 PLT 494 (H) 09/29/2022 TSH 2.092 07/21/2022 PSA 1.035 07/09/2022 INR 0.9 07/21/2022 Lab Results Component Value Date NA 137 09/29/2022 K 3.7 09/29/2022 CL 101 09/29/2022 CO2 32 (H) 09/29/2022 BUN 6 (L) 09/29/2022 CREATININE 0.76 09/29/2022 GLUCOSE 112 (H) 09/29/2022 CALCIUM 8.5 09/29/2022 PROT 6.8 09/29/2022 BILITOT 0.3 09/29/2022 ALKPHOS 83 09/29/2022 AST 33 09/29/2022 ALT 38 09/29/2022 @GLUCOSELAB@ Lab Results Component Value Date CHOL 242 (H) 07/09/2022 CHOL 285 (A) 09/01/2020 CHOL 262 (A) 02/14/2019 Lab Results Component Value Date TRIG 126 07/09/2022 TRIG 120 09/01/2020 TRIG 162 (A) 02/14/2019 Lab Results Component Value Date HDL 70 (H) 07/09/2022 HDL 68 (H) 09/01/2020 HDL 43 02/14/2019 Lab Results Component Value Date LDLCALC 147 (H) 07/09/2022 No results found for: VLDL Lab Results Component Value Date CHOLHDLRATIO 3 07/09/2022 CHOLHDLRATIO 4 09/01/2020 CHOLHDLRATIO 6 02/14/2019 Imaging/Testing: ECG 12 lead Sinus tachycardia Probable left atrial enlargement Borderline T abnormalities, anterior leads Electronically Signed On 09-12-2022 13:06:59 EDT by Katrina Rasheed MD documented in this encounter [facility] 12-10-2022 Telephone encounter Note Last OV:6.27.23 Scheduled:12/26/22 [facility] 12-10-2022 Miscellaneous Notes Last OV:6.27.23 Scheduled:12/26/22 documented in this encounter [facility] 10-09-2022 Miscellaneous Notes Addended by: PAPITO HOOD on: 10/09/2022 10:00 AM Modules accepted: Orders documented in this encounter [facility] 10-09-2022 Note Addended by: PAPITO CHONG on: 10/09/2022 10:00 AM Modules accepted: Orders [facility] 10-09-2022 Note Addended by: PAPITO CHONG on: 10/09/2022 10:00 AM Modules accepted: Orders [facility] 10-01-2022 Telephone encounter Note 1. CMP indicates sugar is elevated. I recommend an A1c order for this in the chart #2 patient's blood counts are normal but his MCV value which is the shape of a blood cell is abnormal I would like to go ahead and order a B12 and iron. This is also in the chart [facility] 10-01-2022 Miscellaneous Notes 1. CMP indicates sugar is elevated. I recommend an A1c order for this in the chart #2 patient's blood counts are normal but his MCV value which is the shape of a blood cell is abnormal I would like to go ahead and order a B12 and iron. This is also in the chart documented in this encounter [facility] 09-25-2022 History of Present illness Narrative Images from the original note were not included. [facility] [address] [facility] [id number] Dept: [phone] Dept Loc: [phone] Reason for Visit: Follow-up (8 week, pt was in Detox recently. ) Assessment and Plan 1. Chronic left shoulder pain advised physical therapy at this time patient would like to hold off. - gabapentin (Neurontin) 600 MG tablet; Take 1 tablet (600 mg) by mouth 3 times daily., Starting Sat09/25/2022, Until Mounika 10/25/2022, Normal 2. Elevated liver enzymes patient's liver enzymes were significantly elevated during hospital admission I advised patient I would like to continue to follow to make sure there decreasing this is most likely to his alcohol. A CT abdomen showed fatty liver otherwise no acute masses. - pantoprazole (ProtoNix) 40 MG EC tablet; Take 1 tablet (40 mg) by mouth every morning (before breakfast)., Starting Sat09/25/2022, Normal - CBC auto differential - Comprehensive metabolic panel - Hepatitis panel, acute 3. 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 Screening for colon cancer - [facility] General Surgery - Sotero Madsen MD 5 alcohol usage. Patient currently was in detox for 5 days. He states that he is doing much better he is on Vivitrol he has an upcoming appointment with the [facility] detox. We will continue to follow-up with them. current treatment plan is effective, no change in therapy, orders and follow up as documented in EMR, lab results reviewed with patient, repeat labs ordered prior to next appointment, reviewed compliance with lifestyle measures, reviewed diet, exercise and weight control, reviewed medications and side effects in detail Return visit in 3 months. Subjective Back Pain This is a chronic problem. The current episode started more than 1 year ago. The problem occurs daily. The problem has been gradually worsening since onset. The pain is present in the lumbar spine. The quality of the pain is described as aching. The pain does not radiate. The pain is at a severity of 6/10. The pain is Worse during the day. The symptoms are aggravated by standing. Stiffness is present All day. Pertinent negatives include no abdominal pain, bladder incontinence, bowel incontinence, chest pain, dysuria, fever, headaches, leg pain, numbness, paresis, paresthesias, pelvic pain, perianal numbness, tingling, weakness or weight loss. Risk factors include sedentary lifestyle. this is a 56-year-old male with multiple medical problems recently he was at detox at [facility]. He states he has not been drinking since then. He is currently on Vivitrol. He sees a specialist for this. He also has a history of shoulder and back pain. He and I discussed physical therapy at this like he would like to hold off. He does take Neurontin for this at times when the pain severe. He also while admitted had elevated liver enzymes. He is denying any abdominal pain nausea vomiting. He and I also discussed he needs to get a colonoscopy patient is agreeable. Review of Systems Constitutional: Negative for fever and weight loss. Cardiovascular: Negative for chest pain. Gastrointestinal: Negative for abdominal pain and bowel incontinence. Genitourinary: Negative for bladder incontinence, dysuria and pelvic pain. Musculoskeletal: Positive for back pain. Neurological: Negative for tingling, weakness, numbness, headaches and paresthesias. Allergies Allergen Reactions Bee Venom Swelling Nickel Rash Tramadol Nausea And Vomiting Other reaction(s): [facility] Outpatient Medications Prior to Visit Medication Sig Dispense Refill Multiple Vitamins tablet Take 1 tablet by mouth daily. 90 tablet 0 [START ON 10/23/2022] nicotine (Nicoderm, Step 2) 14 MG/24HR patch Place 1 patch on the skin daily. Do not start before October 23, 2022. 30 patch 0 nicotine polacrilex (Commit) 2 MG lozenge Dissolve 1 lozenge (2 mg) in the mouth every 2 hours as needed for smoking cessation (nicotine craving, urge to smoke). 100 lozenge 0 albuterol 108 (90 Base) MCG/ACT inhaler Inhale 2 puffs every 6 hours as needed for wheezing or shortness of breath. 18 g 3 calcipotriene (Dovonex) 0.005 % cream Apply topically 2 times daily. 60 g 2 clobetasol (Temovate) 0.05 % cream Apply topically 2 times daily. 15 g 0 gabapentin (Neurontin) 600 MG tablet Take 1 tablet (600 mg) by mouth 3 times daily. 90 tablet 0 melatonin 5 MG tablet Take 1 tablet (5 mg) by mouth Nightly. 90 tablet 0 pantoprazole (ProtoNix) 40 MG EC tablet Take 1 tablet (40 mg) by mouth every morning (before breakfast). 30 tablet 3 Thiamine Mononitrate (Vitamin B1) 100 MG tablet Take 1 tablet (100 mg) by mouth daily. Do not start before September 15, 2022. 90 tablet 0 No facility-administered medications prior to visit. 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) Past Medical History: Diagnosis Date Alcohol abuse Alcohol dependence with withdrawal (HCC) 08/31/2019 Alcohol intoxication without use disorder, uncomplicated (HCC) 10/01/2019 Alcohol withdrawal, uncomplicated (HCC) 08/31/2019 Alcohol withdrawal, with unspecified complication (HCC) 10/02/2019 Alcohol withdrawal, with unspecified complication (HCC) 10/02/2019 Alcoholism (CMS/HCC) (HCC) Anxiety Arthritis Maria De Jesus Cerebral artery occlusion with cerebral infarction (HCC) Cerebrovascular disease Depression GERD (gastroesophageal reflux disease) Maria De Jesus Hypertension Insomnia Social History Tobacco Use Smoking status: Every Day Packs/day: 1.00 Types: Cigarettes Start date: 10/10/1985 Smokeless tobacco: Never Substance Use Topics Alcohol use: Not Currently Alcohol/week: 6.0 standard drinks of alcohol Types: 6 Cans of beer per week Comment: beer 8 cans / day Past Surgical History: Procedure Laterality Date COLONOSCOPY 06/10/2020 EGD/Dr Madison/[facility] CYST REMOVAL face EGD (HISTORICAL) 07/23/2022 Dr. Estrella-[facility] SMALL INTESTINE SURGERY UPPER GASTROINTESTINAL ENDOSCOPY 09/27/2021 normal WISDOM TOOTH EXTRACTION Family History Problem Relation Name Age of Onset Depression Sister Maria De Jesus Hogan Other ([id number]) Sister Maria De Jesus Hogan agoraphobia Arthritis Sister Maria De Jesus Hogan Cancer Mother Maria De Jesus Hogan colon rectal cancer; dx after age 50 Other ([id number]) Mother Maria De Jesus Hogan alcoholism Alcohol abuse Mother Maria De Jesus Hogan Stroke Mother Maria De Jesus Hogan Other ([id number]) Father Maria De Jesus Hogan h/o rheumatic fever, cardiac arrest due to bee sting Hypertension Father Maria De Jesus Hogan Health Maintenance Topic Date Due Hepatitis B Vaccines (1 of 3 - 3-dose series) Never done Diabetes: Hemoglobin A1C Never done HIV Screening Never done Colorectal Cancer Screening Never done MMR Vaccines (1 of 1 - Standard series) Never done Diabetes: Foot Exam Never done Diabetes: Retinopathy Screening Never done Diabetes: Dental Exam Never done DTaP/Tdap/Td Vaccines (1 - Tdap) Never done Hepatitis A Vaccines (1 of 2 - Risk 2-dose series) Never done Zoster Vaccines (1 of 2) Never done COVID-19 Vaccine (4 - Booster for Pfizer series) 05/04/2021 Influenza Vaccine (Season Ended) 2022 Depresssion Monitoring 03/12/2023 Lipid Panel 07/10/2023 Pneumococcal Vaccine: Pediatrics (0 to 5 Years) and At-Risk Patients (6 to 64 Years) (2 - PCV) 09/26/2023 Hepatitis C Screening Completed HIB Vaccines Aged Out IPV Vaccines Aged Out Meningococcal Vaccine Aged Out Rotavirus Vaccines Aged Out HPV Vaccines Aged Out Objective BP 88/64 Pulse (!) 112 Temp 37.1 C (98.7 F) Ht 5' 10 (1.778 m) Wt 215 lb (97.5 kg) SpO2 95% BMI 30.85 kg/m Physical Exam Vitals and nursing note reviewed. Constitutional: Appearance: Normal appearance. HENT: Head: Normocephalic and atraumatic. Nose: No congestion or rhinorrhea. Mouth/Throat: Mouth: Mucous membranes are moist. Pharynx: Oropharynx is clear. No posterior oropharyngeal erythema. Eyes: Extraocular Movements: Extraocular movements intact. Conjunctiva/sclera: Conjunctivae normal. Pupils: Pupils are equal, round, and reactive to light. Cardiovascular: Pulses: Normal pulses. Heart sounds: Normal heart sounds. No murmur heard. Pulmonary: Effort: Pulmonary effort is normal. No respiratory distress. Breath sounds: Normal breath sounds. No wheezing. Abdominal: General: Abdomen is flat. Bowel sounds are normal. Palpations: Abdomen is soft. Tenderness: There is no abdominal tenderness. Musculoskeletal: General: No swelling. Cervical back: Normal range of motion. Skin: General: Skin is warm and dry. Neurological: General: No focal deficit present. Mental Status: He is alert and oriented to person, place, and time. Mental status is at baseline. Psychiatric: Mood and Affect: Mood normal. Data Reviewed and Summarized Labs: Lab Results Component Value Date WBC 5.3 09/10/2022 HGB 16.6 09/10/2022 HCT 49.7 09/10/2022 PLT 183 09/10/2022 TSH 2.092 07/21/2022 PSA 1.035 07/09/2022 INR 0.9 07/21/2022 Lab Results Component Value Date NA 132 (L) 09/10/2022 K 4.3 09/10/2022 CL 98 09/10/2022 CO2 24 09/10/2022 BUN 6 (L) 09/10/2022 CREATININE 0.57 (L) 09/10/2022 GLUCOSE 141 (H) 09/10/2022 CALCIUM 8.0 (L) 09/10/2022 PROT 7.5 09/10/2022 BILITOT 0.6 09/10/2022 ALKPHOS 140 (H) 09/10/2022 AST 156 (H) 09/10/2022 ALT 123 (H) 09/10/2022 @GLUCOSELAB@ Lab Results Component Value Date CHOL 242 (H) 07/09/2022 CHOL 285 (A) 09/01/2020 CHOL 262 (A) 02/14/2019 Lab Results Component Value Date TRIG 126 07/09/2022 TRIG 120 09/01/2020 TRIG 162 (A) 02/14/2019 Lab Results Component Value Date HDL 70 (H) 07/09/2022 HDL 68 (H) 09/01/2020 HDL 43 02/14/2019 Lab Results Component Value Date LDLCALC 147 (H) 07/09/2022 No results found for: VLDL Lab Results Component Value Date CHOLHDLRATIO 3 07/09/2022 CHOLHDLRATIO 4 09/01/2020 CHOLHDLRATIO 6 02/14/2019 Imaging/Testing: ECG 12 lead Sinus tachycardia Probable left atrial enlargement Borderline T abnormalities, anterior leads Electronically Signed On 09-12-2022 13:06:59 EDT by Katrina Rasheed MD documented in this encounter [facility] 09-24-2022 Telephone encounter Note Last seen:08/01/22 Scheduled:09/25/22 [facility] 09-24-2022 Miscellaneous Notes Last seen:08/01/22 Scheduled:09/25/22 documented in this encounter [facility] 09-18-2022 Telephone encounter Note Last seen:08/01/22 Scheduled:09/25/22 [facility] 09-18-2022 Miscellaneous Notes Last seen:08/01/22 Scheduled:09/25/22 documented in this encounter [facility] 09-14-2022 History of Present illness Narrative Patient discharged home at 12:15pm. Personal belongings, prescriptions, and follow up appointments given. Discharge paperwork given and patient states he ching no questions at this time. Patient denies SI/HI/AVH upon leaving. Patient aware of increased risk of od with this visit. Patient left the unit ambulatory and was picked up by family. Addiction Unit Progress Note wednesday September 14, 2022 Active Problems Alcohol Dependence (Severe) Cigarette addiction (Severe) Alcohol /Nicotine Withdrawal PMH: GI bleeds, Smoker's cough, psoriasis, CVA, HTN, When seen, appears much better; Approached abruptly saying: I need to go, I had my shot He advised RN that he'd be leaving by noon. NOTE: THIS IS 3RD ADMISSION TO UNIT IN PAST YEAR, BOTH PREVIOUS TIMES HE LEFT AMA. Luminal taper has been at 64/6 since yesterday Vivtrol injection given this am with no adverse consequences Exam Neuro: negative tremors; gait stable Skin: negative palm sweats; NO evidence of psoriasis exacerbation Respirs: NON labored/ no wheezing; no cough Cardiac: radial pulses even HR: in the 90's 135/96 Abdomen: + distention/soft; no fluid shift Musc/Sk: negative edema; full ROM Cognitions; clear Psyc: No issues Plan: Has only been here for 4 days; admitted in severe w/drawal and BAL 384,mg/dl. As w/d symptoms subsided and he's insistant on leaving today, will place discharge order. Scheduled for OUTPT assessment at [facility] on September 19; [employer] will schedule leny't for vivitrol physician. Scripts: Thiamine; Nicotine Patch/susan Robyn Edmond APRN DNP Patient up and visible on the unit. Patient attends select meetings and interacts with select peers. Appetite, hygiene, and sleep good. No adverse effects noted from injection this am. Patient eager to be discharged home. Patient has no c/o SI/HI/AVH at this time. No behaviors noted. Will continue to monitor for safety. Patient received Vivitrol education this am. Patient understands and stated he has no questions at this time. Patient administered injection to R hip at 9:00am. Patient tolerated well. Patient given info packet, bracelet, tags, and card for home. Patient aware of increased risks of od if he consumes. Will continue to monitor for any side effects. Pt up independently. Social with peers and staff. Pt compliant with medication and cooperative with nursing care. Denies SI/HI/AVH. Pt c/o nausea at start of shift. PRN Zofran given. Effective. PRN albuterol given. PRN Trazodone given per pt request for sleep aid. Pt observed sleeping throughout the night. Pt encouraged to make needs known to staff. Safety checks maintained. Patient up and visible on the unit. Patient social, interacts with peers, walks the lyn. Patient anxious for discharge, states he is going tomorrow no matter what. Patient compliant with medications and treatment offered. Patient denies SI/HI/AVH thus far. Patient appetite, hygiene, and sleep adequate. Patient only c/o of pain is due to tooth pain, ibuprofen effective. Patient attends select meetings when offered and is an active participant. No behaviors noted. Will continue to monitor for safety. Administered PRN ibuprofen for tooth pain. Will continue tot monitor medication effectiveness. Addiction Medicine Progress Note Patient: Maria De Jesus Hogan Chief Complaint Patient presents with Alcohol Problem Pt arrives via triage wanting detox from alcohol. Pt drinks 7-9 tall beers a day. Pt hasn't been able to eat much in the past week. Pt having some nausea/vomiting. Problem List: Principal Problem: Alcohol use disorder Active Problems: Alcohol withdrawal syndrome without complication (HCC) Subjective Interim History: Patient was ambulating halls socializing with peers, denies symptoms of withdrawal. Overall, withdrawal symptoms are improving. No other physical complaints voiced. Patient tolerating meals and fluids. Did receive PRN medication overnight. Patient has participated in group and interacted with peers. This is day #3 of no use. Patient express interest in Naltrexone with the anticipation for Vivitrol. Discussed possible side effects with patient. Explained risks, benefits and alternatives. All patient questions answered. He would like to proceed. Minimal signs and/or symptoms of withdrawal observed No overt events overnight documented Objective Review of Systems: All ROS was completed and was negative unless stated above Physical Exam: Vitals: 09/12/22 1658 09/12/22 2315 09/13/22 0557 09/13/22 1124 BP: 122/87 120/88 (!) 159/109 101/77 BP Location: Right arm Left arm Left arm Patient Position: Sitting Sitting Sitting Pulse: (!) 117 106 102 (!) 111 Resp: 18 18 16 15 Temp: 36.6 C (97.9 F) 36.3 C (97.3 F) 37 C (98.6 F) 36.6 C (97.8 F) TempSrc: Temporal Temporal Temporal Temporal SpO2: 95% 96% 97% 95% Weight: Height: Physical Exam Vitals and nursing note reviewed. Constitutional: Appearance: He is not diaphoretic. Eyes: General: No scleral icterus. Cardiovascular: Rate and Rhythm: Tachycardia present. Pulmonary: Effort: Pulmonary effort is normal. Abdominal: General: There is no distension. Musculoskeletal: General: Normal range of motion. Skin: General: Skin is dry. Coloration: Skin is not pale. Neurological: Mental Status: He is alert and oriented to person, place, and time. Motor: No seizure activity. Coordination: Coordination is intact. Gait: Gait is intact. Comments: Fine tremors Psychiatric: Attention and Perception: He does not perceive auditory or visual hallucinations. Mood and Affect: Mood and affect normal. Speech: Speech normal. Behavior: Behavior normal. Behavior is cooperative. Thought Content: Thought content does not include homicidal or suicidal ideation. Cognition and Memory: Cognition and memory normal. Judgment: Judgment normal. Medications: famotidine, 20 mg, Oral, BID folic acid, 1 mg, Oral, Daily gabapentin, 600 mg, Oral, TID melatonin, 5 mg, Oral, Nightly Multiple Vitamins, 1 tablet, Oral, Daily naltrexone, 50 mg, Oral, Once [START ON 09/14/2022] naltrexone ER, 380 mg, IntraMUSCular, Once nicotine, 1 patch, TransDERmal, Daily Followed by [START ON 10/23/2022] nicotine, 1 patch, TransDERmal, Daily Followed by [START ON 11/06/2022] nicotine, 1 patch, TransDERmal, Daily pantoprazole, 40 mg, Oral, qAM AC PHENobarbital, 64.8 mg, Oral, q6h Thiamine Mononitrate, 100 mg, Oral, TID PRN medications: albuterol, hydrOXYzine pamoate, ibuprofen, loperamide, nicotine polacrilex, ondansetron ODT, traZODone Labs: Last 24 hours: No results found for this or any previous visit (from the past 24 hour(s)). Assessment Severe alcohol use disorder Plan Phenobarbital taper to manage withdrawal symptoms: 65mg q 6 hours for today. Naltrexone today Vivitrol tomorrow PRN medications for withdrawal symptom management. CIWA scores per unit protocol. Counseled patient on biopsychosocial consequences of substance use. -Encouraged professional chemical dependency treatment. - 12 step meeting attendance. Anticipated to be discharged in 1-2 days pending: - resolution of withdrawal symptoms. - labs/tests/tasks to review: none Recovery plan: [facility]ERSITY ARCHIVIST plan for further addiction treatment at [facility] and MAT with JUAN Warner NP Addiction Medicine 09/13/2022 at 12:52 PM Note: Narrative portions of note written using [employer] dictation software. Efforts are made to dictate clearly and proofread but errors in dictation still may occur. Please reach out to author with any clarifying questions. Pt up independently. Steady gait. Social with peers in group room. Reports napping most of the day. Pt compliant with medication and cooperative with nursing care. Denies SI/HI/AVH. Improved tremors. PRN Trazodone given per pt request for sleep aid. Pt encouraged to make needs known to staff. Safety checks maintained. Pt observed sleeping well throughout the night. Up and social. Attended meetings. Ambulates lyn way. Gait steady. Cooperative and pleasant. States much better today. Appetite good. Nutrition Assessment Type and Reason for Visit: Initial, Positive Nutrition Screen (Poor intake) Nutrition Recommendations/Plan: Will assign level 1 referring to technician test systems to monitor. Malnutrition Assessment: Malnutrition Status: No malnutrition Context: Social/Environmental Circumstances Findings of the 6 clinical characteristics of malnutrition: Energy Intake: Mild decrease in energy intake (Comment) (for the last 2 weeks while drank skipped meals and days of eating) Weight Loss: (est. 5% loss of UBW over 3 months) Body Fat Loss: No significant body fat loss Muscle Mass Loss: No significant muscle mass loss Fluid Accumulation: No significant fluid accumulation Financial Institution President Strength: Not Performed Nutrition Assessment: Per chart: 09/11: said he didn't tolerate po, 09/12 100% of bfst. consumed. Per pt.: good appetite now, diarrhea gone w/immodium, WOOL MIXER when drank he skipped meals for the last 2 weeks, consumed 100% of Lunch, declines supplemental foods Estimated Daily Nutrient Needs: Energy Requirements Based On: Kcal/kg Weight Used for Energy Requirements: [place] Weight for Energy Calculation (kg): 75 kg Total Energy Requirements (kcals/day): 1875 - 2250 kcals Weight Used for Protein Requirements: [place] Weight in Kg Used for Protein Requirements: 75 kg Estimated Total Protein (g/day): 60 - 75 gms protein Estimated Daily Total Fluid (ml/day): 1875 - 2250 mls Nutrition Related Findings: weight loss WOOL MIXER, ETOH abuse Wound Type: None Current Nutrition Therapies: Adult diet Regular Current Oral Intake Average Meal Intake: 76-100% Average Supplements Intake: None Ordered Additional Calorie Sources Additional Calorie Sources: WOOL MIXER 7 - 9 tall beers/day Anthropometric Measures: Height: 177.8 cm (5' 10) Current Body Weight: 90.7 kg (200 lb) Weight Source: Not Specified Admission Body Weight: 90.7 kg (200 lb) Usual Body Weight: 95.3 kg (210 lb) ([facility] 06/07/21) % Weight Change (Calculated): -4.8 [place] Body Weight (lbs) (Calculated): 166 lbs [place] Body Weight (Kg) (Calculated): 75 kg % [place] Body Weight (Calculated): 120.5 % BMI (kg/m2) (Calculated): 28.7 Weight Adjustment For: No Adjustment BMI Categories: Overweight (BMI 25.0-29.9) Nutrition Diagnosis: In context of social or environmental circumstances, Unintended weight loss, Altered nutrition-related lab values, Increased nutrient needs, Overweight/Obese, Altered GI function (09/10 BUN 6, Na+ 132, Creat. .57, low, SGPT 123, SGOT 156, Alkph 140, Lipase 389, SGOT 156, SGPT 123, elevated) related to psychological cause or life stress, increase demand for energy/nutrients, altered GI function (ETOH abuse) as evidenced by BMI, weight loss, GI abnormality, lab values, diarrhea (est. 5% loss of UBW over 3 months) Nutrition Interventions: Nutrition Education/Counseling: No recommendation at this time Coordination of Nutrition Care: Continue to monitor while inpatient, Coordination of Care (will assign level 1 referring to technician test systems to monitor) Plan of Care discussed with: pt. Goals: Goals: PO intake 75% or greater Nutrition Monitoring and Evaluation: Behavioral-Environmental Outcomes: None Identified Food/Nutrient Intake Outcomes: None Identified Physical Signs/Symptoms Outcomes: Hemodynamic Status, GI Status, Weight, Nutrition Focused Physical Findings, Meal Time Behavior, Skin, Fluid Status or Edema Discharge Planning: Assist with food insecurity, Continue current diet Mojgan Blum RD Contact: via [employer] chat or office *[id number] Addiction Unit Progress Note SatSeptember 12, 2022 Active Problems Alcohol Dependence (Severe) Cigarette addiction (Severe) Alcohol /Nicotine Withdrawal PMH: GI bleeds, Smoker's cough, psoriasis, CVA, HTN, When seen, appears much better; Alert, fully oriented, coherent; States I feel so much better than yesterday Ambulating independently; Attending all groups Met with SW; agrees to assessment at Intensive Outpt Program; Expressed interest in Naltrexone He's received 11 doses 97.2mg luminal (q 3 hrs); Remains with mild tremors/sweats but overall much less; Exam Neuro: mild tremors; gait stable Skin: Mild palm sweats; NO evidence of psoriasis exacerbation Respirs: NON labored/ no wheezing; no cough HAS USED ALBUTEROL ONCE THIS AM Cardiac: radial pulses even HR: 97 139/100 Abdomen: + distention/soft; no fluid shift Musc/Sk: negative edema; full ROM Cognitions; clear Psyc: No issues Plan: Luminal to q 4 hrs thru today (97.2) then q 6 tomorrow Will discuss naltrexone MAT with him in detail Will continue to encourage and stress Recovery with treatment & 12 Step program Robyn Edmond APRN DNP Up and steady. Up off bed without using hands. Up and ambulating halls, gait steady. Able to get own water. Cooperative and pleasant. Tremors settled. 100% breakfast consumed. Agreed to go to one meeting today and social some. POOR INTAKE Nutrition rescreen completed. Patient referred to the Dietitian. Withdrawn to room sleeping most of shift. Reports diarrhea improving. Diarrhea x 1 this shift. Cooperative with staff. Appetite improving. Slept much of shift. BP elevated this morning. Pt slightly tachycardic. Pt tremulous and anxious. Dr. Rodriguez notified via secure chat. PRN Ativan 1 mg PO given for CIWA 8. Will continue to monitor. 0656 CIWA 5 on reassessment. No signs of distress or discomfort. Bed alarm on for safety. Call light in reach. PRN Vistaril given for anxiety at 0222. Fan provided for comfort. Bed alarm on for safety. Call light in reach. Pt encouraged to call staff for assistance when ambulating. Pt arrived to from [facility] ED at 1939 via wheelchair. Skin check by this RN. Pt A&O X4 and steady with stand by assistance at this time. Reports independent with all ADLs at home. Pt fidgety and restless. HR increased. Reassessed once medicated. Improved to 109. Consents signed and pt oriented to unit. Pt reports drinking 9 tall boys daily. Last drink prior to arrival to ED. Pt denies drug use. Tox screen negative. Pt denies hx of falls or seizures. Pt reports 6 months of sobriety in distant past. Denies SI/HI/AVH. Meal provided. PRN Vistaril given for anxiety. Effective. Pt resting comfortably. No signs of distress. Pt encouraged to make needs known to staff and maintain safety. Pt agreed. Urinal provided. Safety checks maintained. Will continue to monitor. documented in this encounter [facility] 09-14-2022 Note Formatting of this n ote might be different from the original. UNIVERSITY ARCHIVIST saw patient to discuss aftercare plans and treatment post discharge. Patient was reminded about follow-up appointment with Lai OROZCO on 09/19/2022 at 8:30 AM. Patient also has MAT follow-up with Dr. Hood on 10/09/2022 at 9 AM for Vivitrol. All information included in patient's discharge paperwork.. Patient denied current SI/HI/AVH. Patient reported that their would be picking them up from the hospital and taking them back home. Patient denied needing anything further from [facility] at the time. UNIVERSITY ARCHIVIST informed patient's nurse about conversation. [facility] 09-14-2022 Note Formatting of this n ote might be different from the original. UNIVERSITY ARCHIVIST saw patient to discuss aftercare plans and treatment post discharge. Patient was reminded about follow-up appointment with Lai OROZCO on 09/19/2022 at 8:30 AM. Patient also has MAT follow-up with Dr. Hood on 10/09/2022 at 9 AM for Vivitrol. All information included in patient's discharge paperwork.. Patient denied current SI/HI/AVH. Patient reported that their would be picking them up from the hospital and taking them back home. Patient denied needing anything further from [facility] at the time. UNIVERSITY ARCHIVIST informed patient's nurse about conversation. [facility] 09-14-2022 Miscellaneous Notes UNIVERSITY ARCHIVIST saw patient to discuss aftercare plans and treatment post discharge. Patient was reminded about follow-up appointment with Lai OROZCO on 09/19/2022 at 8:30 AM. Patient also has MAT follow-up with Dr. Hood on 10/09/2022 at 9 AM for Vivitrol. All information included in patient's discharge paperwork.. Patient denied current SI/HI/AVH. Patient reported that their would be picking them up from the hospital and taking them back home. Patient denied needing anything further from [facility] at the time. UNIVERSITY ARCHIVIST informed patient's nurse about conversation. Department: [facility] Group Topic: Mindfulness Group Date: 09/13/2022 Start Time: 1500 End Time: 1530 Facilitators: Soco Edmonds Number of Participants: 5 Group Name: Music Trivia Treatment Modality: Music Therapy Purpose: enhance coping skills Summary: Patient was given the task of guessing the song title and artist. The activity uses well known music to alleviate patient's hospital related anxiety by: helping direct patients' focus on identifying titles and artists of songs, improving patient's mood, affect, and group participation. Participation in the group will decrease patient's feeling of isolation and discussion will follow about using focused music listening as a mindfulness technique. Name: Maria De Jesus Hogan Date of : 1965 MR: [id number] Mental Status Exam: Appearance: Appropriately dressed and groomed Mood: Euthymic Affect: Full Behavior: Pleasant and Cooperative Alertness: Alert Speech: Appropriate Cognition: Intact Thought Process: Goal-directed Thought Content: No evidence of psychosis/delusions Level/Quality of Participation: active and attentive Interactions with others: gave feedback Interventions utilized were recreational music therapist Patient's Response to Intervention: Patient participated appropriately choosing a song and sharing with the group. Pt affect was bright and eye contact was good. Pt provided verbal support to peers and participated in group singing. 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 UNIVERSITY ARCHIVIST offered to call and schedule patient's intake appointment and patient was agreeable. Patient is also agreeable to Vivitrol injections previous to leaving the unit as well as following up with MAT services. UNIVERSITY ARCHIVIST schedule patient intake assessment include all information on patient's discharge plans. UNIVERSITY ARCHIVIST will continue to follow-up as necessary. Problem: Potential for Substance Withdrawal Goal: Verbalizes signs/symptoms of withdrawal Outcome: Progressing Goal: Reports signs/symptoms of withdrawal Outcome: Progressing Goal: Free of withdrawal symptoms Outcome: Progressing Problem: Anxiety Goal: Patient/family understands admission protocols Outcome: Progressing Goal: Attempts to manage anxiety with help Outcome: Progressing Goal: Verbalizes ways to manage anxiety Outcome: Progressing Goal: Implements measures to reduce anxiety Outcome: Progressing Goal: Free from restraint events Outcome: Progressing Behavioral Health Psycho-Social Assessment (Social Work) Date: 09/11/2022 Patient Name: Maria De Jesus Hogan : 1965 Identifying Information: Patient is a 56-year-old male admitted to for detox and alcohol. Patient is well-known to addiction medicine team as he was previously seen in September 2021. Previous that patient was seen in January 2021 Where patient left AMA. Presenting Problem: Patient presented to the ED on 09/10/2022 requesting detox from alcohol. Patient reports having nausea and vomiting for over a week. Patient reports drinking 7-9 tall beers daily. Patient reports his last drink was 10 AM on 09/10/2022. Psychiatric History: Patient has mental health diagnosis depression anxiety. Patient denies being on any medication for mental health needs. Patient has previous engagement with outpatient mental health providers but denies any current treatment. He has previous history of engagement with [facility] and [facility] for outpatient mental health treatment. Patient has history of psychiatric admission. Reports admission was due to suicidal ideation while intoxicated Denies history of recent or past suicide attempts. Patient denies current SI/HI/AVH. Patient does have an extensive history of passive SI secondary to intoxication. Patient denies plan, intent, or method but reports more increased feelings of depression and sadness. Patient denies recent or past history of SIB. Substance Abuse/Use: Patient reports that he is currently drinking upwards of 9, 24 ounce Natty Daddy beers daily. Patient reports his last drink was 09/10/2029. Patient labs are positive for alcohol (0.384). Patient first drank alcohol when he was [age] years old. Patient reports that his use was regular in his 20s, and problematic 12 years ago. He cannot identify a trigger to his problematic use, other than, I like beer . He drinks the point of intoxication, blackouts, and vomiting. He denies history of withdrawal seizure, alcohol overdoses, or DTs. Patient does have extensive history of falls while intoxicated. Patient reports previous history of engagement with AA as well as IOP. Patient denies any history of MAT engagement. Patient reports his longest period of sobriety was 6 months. Patient reports however after leaving the unit during his previous admission he relapsed almost immediately. Patient has previous history of detox occurring on 10/25/2021, 02/15/2021 (left AMA), 06/09/20, 10/01/19, 08/31/19 (left AMA), 2016 (left AMA), and 2014 (left AMA). He denies history of residential treatment Medical/Self-care Issues: Patient has medical issues such as COPD, Lombardo's esophagus, macrocytosis, and HTN. Patient has ongoing struggles with self-care secondary to substance use disorder. Patient is increased in both frequency and tolerance over time. Patient also report struggling to recover from the effects of his substance use. Patient reports experiencing poor nutrition and sleep secondary to his substance use. Legal/Trauma/ History: Patient denies any current legal issues. Patient reports past legal history of child support violations. Patient denies any history of childhood abuse. Patient does report however his father when he was 11 years old which was a traumatic incident to him. Patient denies any history of trauma abuse as an adult. Patient denies any history [place] or status. Family Constellation/Childhood History: Patient reports that he is currently to his living in [facility]. Patient reports that he has 3 biological children and 4 stepchildren. Patient reports that his father in his 11 years old. Patient did not report his mother is still alive currently. Patient was born and raised in [place], [place] by his mother and father. He reports that his father when he was 11 years old, and this was traumatic for him. Patient reports that he was raised primarily by his mother for the remainder of his childhood. He denies childhood abuse. Education/Work: Patient reports that he graduated high school. 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 Patient denies SSI/SSD. Cultural/Spirituality/Leisure: Patient denies any cultural needs or concerns at the current time. Patient denies identify any yarsanism preference. It is unknown if patient is attending services anywhere currently. Patient reports he used to enjoy leisure activities such as golfing but has been unable to do so due to his ongoing substance use disorder. Support Systems/Collateral Information: Patient reports that his is his primary social. Patient reports that she is sober and supportive of his recovery needs and efforts. Patient reports that his is aware that he is admitted to the hospital. C-SSRS Actual Attempt (Past 3 Months): No (Patient has history of psychiatric admission. Reports admission was due to suicidal ideation while intoxicated Denies history of recent suicide attempts.) Actual Attempt (Lifetime): No (Patient denies past history of suicide attempts.) Interrupted Attempts (Past 3 Months): No (Patient denies) Interrupted Attempts (Lifetime): No (Patient denies) Aborted or Self-Interrupted Attempt (Past 3 Months): No (Patient denies) Aborted or Self-Interrupted Attempt (Lifetime): No (Patient denies) Preparatory Acts or Behavior (Past 3 Months): No (Patient denies) Preparatory Acts or Behavior (Lifetime): No (Patient denies) Has subject engaged in non-suicidal self-injurious behavior? (Past 3 Months): No (Patient denies recent history of SIB) Has subject engaged in non-suicidal self-injurious behavior? (Lifetime): No (Patient denies past history of SIB) Suicidal Ideation: (Patient denies current SI/HI/AVH. Patient does have an extensive history of passive SI secondary to intoxication. Patient denies plan, intent, or method but reports more increased feelings of depression and sadness.) Activating Events (Recent): Recent loss(es) or other significant negative event(s) (legal, financial, relationship, etc.) Describe:: Patient is ongoing struggles with alcohol use disorder Treatment History: Previous psychiatric diagnoses and treatments, Not receiving treatment (Patient has mental health diagnosis depression anxiety. Patient denies being on any medication for mental health needs. Patient has previous engagement with outpatient mental health providers but denies any current treatment.) Clinical Status (Recent): Hopelessness, Major depressive episode, Substance abuse or dependence, Agitation or severe anxiety, Perceived burden on family or others, Highly impulsive behavior (Risk factors) Protective Factors (Recent): Identifies reasons for living, Responsibility to family or others and/or living with family, Supportive social network or family (Protective factors) Describe any suicidal, self-injurious or aggressive behavior (include dates): Patient has history of psychiatric admission. Reports admission was due to suicidal ideation while intoxicated Denies history of recent or past suicide attempts. Patient denies current SI/HI/AVH. Patient does have an extensive history of passive SI secondary to intoxication. Patient denies plan, intent, or method but reports more increased feelings of depression and sadness. Patient denies recent or past history of SIB. Patient has mental health diagnosis depression anxiety. Patient denies being on any medication for mental health needs. Patient has previous engagement with outpatient mental health providers but denies any current treatment. Plan: Patient is unsure what he wants his postdischarge plan from the unit to look like. Patient is open to working with UNIVERSITY ARCHIVIST to identify an aftercare plan. Patient is encouraged to engage in all activities that are offered to him while he is on the unit. Patient not report anything additional at current time. Patient encouraged to seek out unit staff or [facility]CHIV[facility] should he identify any additional needs or concerns. Comment: Please note this report has been produced using speech recognition software and may contain errors related to that system including errors in grammar, punctuation, and spelling, as well as words and phrases that may be inappropriate. If there are any questions or concerns please feel free to contact the dictating provider for clarification. documented in this encounter [facility] 09-13-2022 Group counseling note Department: [facility] Group Topic: Mindfulness Group Date: 09/13/2022 Start Time: 1500 End Time: 1530 Facilitators: Soco Edmonds Number of Participants: 5 Group Name: Music Dom Treatment Modality: Music Therapy Purpose: enhance coping skills Summary: Patient was given the task of guessing the song title and artist. The activity uses well known music to alleviate patient's hospital related anxiety by: helping direct patients' focus on identifying titles and artists of songs, improving patient's mood, affect, and group participation. Participation in the group will decrease patient's feeling of isolation and discussion will follow about using focused music listening as a mindfulness technique. Name: Maria De Jesus Hogan Date of : 1965 MR: [id number] Mental Status Exam: Appearance: Appropriately dressed and groomed Mood: Euthymic Affect: Full Behavior: Pleasant and Cooperative Alertness: Alert Speech: Appropriate Cognition: Intact Thought Process: Goal-directed Thought Content: No evidence of psychosis/delusions Level/Quality of Participation: active and attentive Interactions with others: gave feedback Interventions utilized were recreational music therapist Patient's Response to Intervention: Patient participated appropriately choosing a song and sharing with the group. Pt affect was bright and eye contact was good. Pt provided verbal support to peers and participated in group singing. 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 [facility]CHIVIST being interested in [facility] for aftercare program. UNIVERSITY ARCHIVIST offered to call and schedule patient's intake appointment and patient was agreeable. Patient is also agreeable to Vivitrol injections previous to leaving the unit as well as following up with MAT services. UNIVERSITY ARCHIVIST schedule patient intake assessment include all information on patient's discharge plans. UNIVERSITY ARCHIVIST will continue to follow-up as necessary. [facility] 09-12-2022 Note Formatting of this n ote might be different from the original. UNIVERSITY ARCHIVIST being interested in [facility] aftercare program. UNIVERSITY ARCHIVIST offered to call and schedule patient's intake appointment and patient was agreeable. Patient is also agreeable to Vivitrol injections previous to leaving the unit as well as following up with MAT services. UNIVERSITY ARCHIVIST schedule patient intake assessment include all information on patient's discharge plans. UNIVERSITY ARCHIVIST will continue to follow-up as necessary. [facility] 09-12-2022 Nurse Note Pt cooperative with nursing care and med compliant. Withdrawn to room in bed. Bed alarm in place, urinal at bedside. Denies SI/HI/AVH. Pt tremors have improved but still very tremulous. Pt encouraged to make needs known to staff. Call light within reach. Pt slept throughout the night. Safety checks maintained. [facility] 09-12-2022 Nurse Note Pt cooperative with nursing care and med compliant. Withdrawn to room in bed. Bed alarm in place, urinal at bedside. Denies SI/HI/AVH. Pt tremors have improved but still very tremulous. Pt encouraged to make needs known to staff. Call light within reach. Pt slept throughout the night. Safety checks maintained. documented in this encounter [facility] 09-11-2022 Plan of care note Problem: Potential for Substance Withdrawal Goal: Verbalizes signs/symptoms of withdrawal Outcome: Progressing Goal: Reports signs/symptoms of withdrawal Outcome: Progressing Goal: Free of withdrawal symptoms Outcome: Progressing Problem: Anxiety Goal: Patient/family understands admission protocols Outcome: Progressing Goal: Attempts to manage anxiety with help Outcome: Progressing Goal: Verbalizes ways to manage anxiety Outcome: Progressing Goal: Implements measures to reduce anxiety Outcome: Progressing Goal: Free from restraint events Outcome: Progressing [facility] 09-11-2022 History and physical note Addiction Unit H & P September 11, 2022Saturday Maria De Jesus Hogan 1965 Admitted: Yesterday September 10, from [facility] ED with C/O nausea, vomiting & request for etoh w/d management ED Notes: Alcohol Problem Pt arrives via triage wanting detox from alcohol. Pt drinks 7-9 tall beers a day. Pt hasn't been able to eat much in the past week. Pt having some nausea/vomiting. Maria De Jesus Hogan is a 56 y.o. male who presents to the emergency department with request for detox, nausea and vomiting for about 1 week. Patient says he cannot tolerate p.o. He typically drinks 7-9 tall beers per day. His last drink was at approximately 10 AM today. He says that he feels a bit shaky. He says he has had bad withdrawal before but he has never had a seizure. 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 PMH: psoriasis, Lombardo's esophagitis, Cerebral vascular disease with hx CVA, TIAs, Smoker's cough/congestion HTN, Hx GI bleed, Hx of pneumatosis, & a long hx of recidivistic alcoholism Seen by Addiction Medicine several times over past 8 years 2015: [facility] 2016[facility] for [facility] disorder 2020: [facility] ([facility]/left prematurely) [facility]: [facility] consultation Jan 2021: [facility]: left AMA May 2021: [facility] consult (gi bleed) August,: [facility] consult (hematemesis) left AMA June 2022: [facility] consult (hematemesis) left AMA When seen today, he was lying awake in bed; Clearly showing s/s of etoh w/drawal: gross tremors, diaphoresis, anxiety VS: HR 107 BP 132/94 T 36.3 Admits fatigue/distress but willing/able to talk with me; Tells me that follow discharge from hospital in June (1.5 months ago), he continued to consume; DAILY SINCE THEN: NINE TALL BOYS & 1.5 PACKS CIGARETTES. Motivation to come to ED: I thought I was dying. Says he wants to stop, but unable to do so. NO Meeting attendance in past month. Tells me what helped keep him abstinent: IOP; a long time ago (2014??). LAST consumption was morning Prior to coming to ED On admission, a urine drug screen was negative, and a serum alcohol level was 384mg/dl Admits to interest in Intensive Outpt Program with [facility] MAT. Current Substance Use: [x] Alcohol: nine tall boys daily [] Amphetamines: denies. [] Benzos: [] Cocaine: 1980s [] Hallucinogens: denies. [] Marijuana: 1980s [x] Nicotine: 1.5 PPD [] Opioids: denies. Substance Use History: Maria De Jesus Hogan states that he started drinking at the age of [age]. Problematic drinking began 11 years ago. Patient has a remote () history of benzo, cocaine and marijuana use. Denies a history or current use of any other illicit substances. He has a history of blackouts. Denies a history of DTs or withdrawal seizures.. Maria De Jesus States that he has a year of sobriety (2018) by going to AA meetings. He has never been to residential treatment. He has a history of IOP at [facility] in [place]. He has a history of a psychiatric admission in 2016 for SI while intoxicated. Denies current SI/HI auditory or visual hallucination. Consequences: [] IVDA. [x] Blackouts related to substance use. [] History of withdrawal seizures. [] History of delirium tremens. [] History of overdoses. [x] Legal consequences of substance use. 1DUI in past; none current Substance Use Disorder Criteria: 2-3 = mild; 4-5 = moderate; 6 or >6 = severe substance use disorder [x] Taking substance in larger amounts and/or for longer than intended. [x] Wanting to cut down or quit but not being able to. [x] Spending a lot of time obtaining the substance. [x] Craving or a strong desire to use substance. [x] Repeatedly doesn't carry out major obligations due to substance use. [x] Using despite recurring social or interpersonal problems. [x] Reducing social, occupational, or recreational activities. [x] Recurrent use in physically hazardous situations. [x] Consistent use despite recurrent physical or psychological difficulties. [x] Tolerance (increased amounts to achieve intoxication or diminished effect). [x] Withdrawal syndrome or the substance is used to avoid withdrawal. Treatment History: [] Inpatient Rehab: denies [x] Chem Dep IOP: [facility] [x] Detoxifications: numerous. [x] 12 Step Meetings: yes [] Medication Assisted Treatment: denies but is thinking of [facility] MAT Psychiatric History: Current Psychiatrist: none Current Medications: see below Previous Medication Trials: unknown Diagnoses: depression, anxiety, depression, alcohol use disorder Psychiatric Hospitalizations: denies Previous Suicide Attempts: denies Adverse Childhood Events: denies Trauma History: denies History of Head Injuries: denies Current Meds: Albuterol inhaler(SOB from smoking), Neurontin (back pain), Melatonin, Protonix, Clobetasol cream; ROS All reviewed; he endorses: Shakes Nausea Poor appetite Fatigue Weakness Denies: SOB EXAM Constitutional: heavyset caucasion male appearing disheveled and in w/d distress. Alert; fully oriented; coherent Distressed mood with stressed affect Neuro: Positive for gross tremors; unstable gait Skin: NO jaundice; Positive for diaphoresis Eyes: Positive lacrimation; NO icterus; PEERLA; 5mm Respirs; NO audible wheezing/cough; NON labored Cardiac: Positive tachycardia Radial pulses equal; Per last PCP visit, [facility] Echo ordered due to SOB & abnormal EKG Abdomen: distended but no fluid shift Mus/Sk: No deformitis; NO edema Cognitions: clear mentation Psych: no evidence of hallucinations; No overt psychosis or mood disorder Diagnosis: Alcohol & Nicotine Dependence with Withdrawal complicated by multiple comorbidities Arturo clearly suffers with recidivistic chronic alcoholism; he's unable to refrain/stop despite treatment, successful recover in past and severe effects on health and a desire to stop. Also, addiction to cigartette's which contribute to health decline. He's come to hospital seeking help multiple times. He's exhbiting s/s of w/drawal Plan ETOH/Nicotine wd Q 3 hrs phenobarb 97.2mg PO Thiamine tid Nicotine replacement Home meds continued Severe Addiction Educate on alcoholism vs consumption Educate on naltrexone MAT Educate on importance of treatment & 12 Step Meetings Encourage attendance at all unit groups Robyn Edmond APRN DNP [facility] 09-11-2022 History and physical note Addiction Unit H & P September 11, 2022Saturday Maria De Jesus Hogan 1965 Admitted: Yesterday September 10, from [facility] ED with C/O nausea, vomiting & request for etoh w/d management ED Notes: Alcohol Problem Pt arrives via triage wanting detox from alcohol. Pt drinks 7-9 tall beers a day. Pt hasn't been able to eat much in the past week. Pt having some nausea/vomiting. Maria De Jesus Hogan is a 56 y.o. male who presents to the emergency department with request for detox, nausea and vomiting for about 1 week. Patient says he cannot tolerate p.o. He typically drinks 7-9 tall beers per day. His last drink was at approximately 10 AM today. He says that he feels a bit shaky. He says he has had bad withdrawal before but he has never had a seizure. 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 PMH: psoriasis, Lombardo's esophagitis, Cerebral vascular disease with hx CVA, TIAs, Smoker's cough/congestion HTN, Hx GI bleed, Hx of pneumatosis, & a long hx of recidivistic alcoholism Seen by Addiction Medicine several times over past 8 years 2015: [facility] 2020: [facility]ly[facility]: [facility] consultation Jan 2021: [facility]: left AMA May 2021: [facility] consult (gi bleed) August,: [facility] consult (hematemesis) left AMA June 2022: [facility] consult (hematemesis) left AMA When seen today, he was lying awake in bed; Clearly showing s/s of etoh w/drawal: gross tremors, diaphoresis, anxiety VS: HR 107 BP 132/94 T 36.3 Admits fatigue/distress but willing/able to talk with me; Tells me that follow discharge from hospital in June (1.5 months ago), he continued to consume; DAILY SINCE THEN: NINE TALL BOYS & 1.5 PACKS CIGARETTES. Motivation to come to ED: I thought I was dying. Says he wants to stop, but unable to do so. NO Meeting attendance in past month. Tells me what helped keep him abstinent: IOP; a long time ago (2014??). LAST consumption was morning Prior to coming to ED On admission, a urine drug screen was negative, and a serum alcohol level was 384mg/dl Admits to interest in Intensive Outpt Program with [facility] MAT. Current Substance Use: [x] Alcohol: nine tall boys daily [] Amphetamines: denies. [] Benzos: [] Cocaine: [] Hallucinogens: denies. [] Marijuana: [x] Nicotine: 1.5 PPD [] Opioids: denies. Substance Use History: Maria De Jesus Hogan states that he started drinking at the age of [age]. Problematic drinking began 11 years ago. Patient has a remote () history of benzo, cocaine and marijuana use. Denies a history or current use of any other illicit substances. He has a history of blackouts. Denies a history of DTs or withdrawal seizures.. Maria De Jesus States that he has a year of sobriety (2018) by going to AA meetings. He has never been to residential treatment. He has a history of IOP at [facility] and [facility] in [place]. He has a history of a psychiatric admission in 2016 for SI while intoxicated. Denies current SI/HI auditory or visual hallucination. Consequences: [] IVDA. [x] Blackouts related to substance use. [] History of withdrawal seizures. [] History of delirium tremens. [] History of overdoses. [x] Legal consequences of substance use. 1DUI in past; none current Substance Use Disorder Criteria: 2-3 = mild; 4-5 = moderate; 6 or >6 = severe substance use disorder [x] Taking substance in larger amounts and/or for longer than intended. [x] Wanting to cut down or quit but not being able to. [x] Spending a lot of time obtaining the substance. [x] Craving or a strong desire to use substance. [x] Repeatedly doesn't carry out major obligations due to substance use. [x] Using despite recurring social or interpersonal problems. [x] Reducing social, occupational, or recreational activities. [x] Recurrent use in physically hazardous situations. [x] Consistent use despite recurrent physical or psychological difficulties. [x] Tolerance (increased amounts to achieve intoxication or diminished effect). [x] Withdrawal syndrome or the substance is used to avoid withdrawal. Treatment History: [] Inpatient Rehab: denies [x] Chem Dep IOP: [facility] [x] Detoxifications: numerous. [x] 12 Step Meetings: yes [] Medication Assisted Treatment: denies but is thinking of naltrexone MAT Psychiatric History: Current Psychiatrist: none Current Medications: see below Previous Medication Trials: unknown Diagnoses: depression, anxiety, depression, alcohol use disorder Psychiatric Hospitalizations: denies Previous Suicide Attempts: denies Adverse Childhood Events: denies Trauma History: denies History of Head Injuries: denies Current Meds: Albuterol inhaler(SOB from smoking), Neurontin (back pain), Melatonin, Protonix, Clobetasol cream; ROS All reviewed; he endorses: Shakes Nausea Poor appetite Fatigue Weakness Denies: SOB EXAM Constitutional: heavyset caucasion male appearing disheveled and in w/d distress. Alert; fully oriented; coherent Distressed mood with stressed affect Neuro: Positive for gross tremors; unstable gait Skin: NO jaundice; Positive for diaphoresis Eyes: Positive lacrimation; NO icterus; PEERLA; 5mm Respirs; NO audible wheezing/cough; NON labored Cardiac: Positive tachycardia Radial pulses equal; Per last PCP visit, [facility] Echo ordered due to SOB & abnormal EKG Abdomen: distended but no fluid shift Mus/Sk: No deformitis; NO edema Cognitions: clear mentation Psych: no evidence of hallucinations; No overt psychosis or mood disorder Diagnosis: Alcohol & Nicotine Dependence with Withdrawal complicated by multiple comorbidities Arutro clearly suffers with recidivistic chronic alcoholism; he's unable to refrain/stop despite treatment, successful recover in past and severe effects on health and a desire to stop. Also, addiction to cigartette's which contribute to health decline. He's come to hospital seeking help multiple times. He's exhbiting s/s of w/drawal Plan ETOH/Nicotine wd Q 3 hrs phenobarb 97.2mg PO Thiamine tid Nicotine replacement Home meds continued Severe Addiction Educate on alcoholism vs consumption Educate on naltrexone MAT Educate on importance of treatment & 12 Step Meetings Encourage attendance at all unit groups Robyn Edmond APRN DNP documented in this encounter [facility] 09-11-2022 Hospital Discharge instructions BENNIE Solis - 09/11/2022 8:39 AM EDT After detox you should abstain from any use of any mood altering chemical Appointment with your primary care physician should be scheduled It is highly recommended that you attend post hospital treatment Please read the information give to you - Intro to 12 step programs Call the National Suicide Prevention Hotline if needed at: 1-876-088-CGVT (2668) Please call the following number should you have questions regarding your discharge or aftercare appointments: [facility] documented in this encounter [facility] 09-11-2022 Note Formatting of this n ote is different from the original. Behavioral Health Psycho-Social Assessment (Social Work) Date: 09/11/2022 Patient Name: Maria De Jesus Hogan : 1965 Identifying Information: Patient is a 56-year-old male admitted to for detox and alcohol. Patient is well-known to addiction medicine team as he was previously seen in September 2021. Previous that patient was seen in January 2021 Where patient left AMA. Presenting Problem: Patient presented to the ED on 09/10/2022 requesting detox from alcohol. Patient reports having nausea and vomiting for over a week. Patient reports drinking 7-9 tall beers daily. Patient reports his last drink was 10 AM on 09/10/2022. Psychiatric History: Patient has mental health diagnosis depression anxiety. Patient denies being on any medication for mental health needs. Patient has previous engagement with outpatient mental health providers but denies any current treatment. He has previous history of engagement with [facility] in [place] for outpatient mental health treatment. Patient has history of psychiatric admission. Reports admission was due to suicidal ideation while intoxicated Denies history of recent or past suicide attempts. Patient denies current SI/HI/AVH. Patient does have an extensive history of passive SI secondary to intoxication. Patient denies plan, intent, or method but reports more increased feelings of depression and sadness. Patient denies recent or past history of SIB. Substance Abuse/Use: Patient reports that he is currently drinking upwards of 9, 24 ounce Natty Daddy beers daily. Patient reports his last drink was 09/10/2029. Patient labs are positive for alcohol (0.384). Patient first drank alcohol when he was [age] years old. Patient reports that his use was regular in his 20s, and problematic 12 years ago. He cannot identify a trigger to his problematic use, other than, I like beer . He drinks the point of intoxication, blackouts, and vomiting. He denies history of withdrawal seizure, alcohol overdoses, or DTs. Patient does have extensive history of falls while intoxicated. Patient reports previous history of engagement with AA as well as IOP. Patient denies any history of MAT engagement. Patient reports his longest period of sobriety was 6 months. Patient reports however after leaving the unit during his previous admission he relapsed almost immediately. Patient has previous history of detox occurring on 10/25/2021, 02/15/2021 (left AMA), 06/09/20, 10/01/19, 08/31/19 (left AMA), 2016 (left AMA), and 2014 (left AMA). He denies history of residential treatment Medical/Self-care Issues: Patient has medical issues such as COPD, Lombardo's esophagus, macrocytosis, and HTN. Patient has ongoing struggles with self-care secondary to substance use disorder. Patient is increased in both frequency and tolerance over time. Patient also report struggling to recover from the effects of his substance use. Patient reports experiencing poor nutrition and sleep secondary to his substance use. Legal/Trauma/ History: Patient denies any current legal issues. Patient reports past legal history of child support violations. Patient denies any history of childhood abuse. Patient does report however his father when he was 11 years old which was a traumatic incident to him. Patient denies any history of trauma abuse as an adult. Patient denies any history [place] or status. Family Constellation/Childhood History: Patient reports that he is currently to his living in [facility]. Patient reports that he has 3 biological children and 4 stepchildren. Patient reports that his father in his 11 years old. Patient did not report his mother is still alive currently. Patient was born and raised in [place], [place] by his mother and father. He reports that his father when he was 11 years old, and this was traumatic for him. Patient reports that he was raised primarily by his mother for the remainder of his childhood. He denies childhood abuse. Education/Work: Patient reports that he graduated high school. 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 Patient denies SSI/SSD. Cultural/Spirituality/Leisure: Patient denies any cultural needs or concerns at the current time. Patient denies identify any yarsanism preference. It is unknown if patient is attending services anywhere currently. Patient reports he used to enjoy leisure activities such as golfing but has been unable to do so due to his ongoing substance use disorder. Support Systems/Collateral Information: Patient reports that his is his primary social. Patient reports that she is sober and supportive of his recovery needs and efforts. Patient reports that his is aware that he is admitted to the hospital. C-SSRS Actual Attempt (Past 3 Months): No (Patient has history of psychiatric admission. Reports admission was due to suicidal ideation while intoxicated Denies history of recent suicide attempts.) Actual Attempt (Lifetime): No (Patient denies past history of suicide attempts.) Interrupted Attempts (Past 3 Months): No (Patient denies) Interrupted Attempts (Lifetime): No (Patient denies) Aborted or Self-Interrupted Attempt (Past 3 Months): No (Patient denies) Aborted or Self-Interrupted Attempt (Lifetime): No (Patient denies) Preparatory Acts or Behavior (Past 3 Months): No (Patient denies) Preparatory Acts or Behavior (Lifetime): No (Patient denies) Has subject engaged in non-suicidal self-injurious behavior? (Past 3 Months): No (Patient denies recent history of SIB) Has subject engaged in non-suicidal self-injurious behavior? (Lifetime): No (Patient denies past history of SIB) Suicidal Ideation: (Patient denies current SI/HI/AVH. Patient does have an extensive history of passive SI secondary to intoxication. Patient denies plan, intent, or method but reports more increased feelings of depression and sadness.) Activating Events (Recent): Recent loss(es) or other significant negative event(s) (legal, financial, relationship, etc.) Describe:: Patient is ongoing struggles with alcohol use disorder Treatment History: Previous psychiatric diagnoses and treatments, Not receiving treatment (Patient has mental health diagnosis depression anxiety. Patient denies being on any medication for mental health needs. Patient has previous engagement with outpatient mental health providers but denies any current treatment.) Clinical Status (Recent): Hopelessness, Major depressive episode, Substance abuse or dependence, Agitation or severe anxiety, Perceived burden on family or others, Highly impulsive behavior (Risk factors) Protective Factors (Recent): Identifies reasons for living, Responsibility to family or others and/or living with family, Supportive social network or family (Protective factors) Describe any suicidal, self-injurious or aggressive behavior (include dates): Patient has history of psychiatric admission. Reports admission was due to suicidal ideation while intoxicated Denies history of recent or past suicide attempts. Patient denies current SI/HI/AVH. Patient does have an extensive history of passive SI secondary to intoxication. Patient denies plan, intent, or method but reports more increased feelings of depression and sadness. Patient denies recent or past history of SIB. Patient has mental health diagnosis depression anxiety. Patient denies being on any medication for mental health needs. Patient has previous engagement with outpatient mental health providers but denies any current treatment. Plan: Patient is unsure what he wants his postdischarge plan from the unit to look like. Patient is open to working with [facility] to identify an aftercare plan. Patient is encouraged to engage in all activities that are offered to him while he is on the unit. Patient not report anything additional at current time. Patient encouraged to seek out unit staff or [facility] should he identify any additional needs or concerns. Comment: Please note this report has been produced using speech recognition software and may contain errors related to that system including errors in grammar, punctuation, and spelling, as well as words and phrases that may be inappropriate. If there are any questions or concerns please feel free to contact the dictating provider for clarification. [facility] 09-11-2022 Note Formatting of this n ote is different from the original. Behavioral Health Psycho-Social Assessment (Social Work) Date: 09/11/2022 Patient Name: Maria De Jesus Hogan : 1965 Identifying Information: Patient is a 56-year-old male admitted to for detox and alcohol. Patient is well-known to addiction medicine team as he was previously seen in September 2021. Previous that patient was seen in January 2021 Where patient left A. Presenting Problem: Patient presented to the ED on 09/10/2022 requesting detox from alcohol. Patient reports having nausea and vomiting for over a week. Patient reports drinking 7-9 tall beers daily. Patient reports his last drink was 10 AM on 09/10/2022. Psychiatric History: Patient has mental health diagnosis depression anxiety. Patient denies being on any medication for mental health needs. Patient has previous engagement with outpatient mental health providers but denies any current treatment. He has previous history of engagement with [facility] in [place] for outpatient mental health treatment. Patient has history of psychiatric admission. Reports admission was due to suicidal ideation while intoxicated Denies history of recent or past suicide attempts. Patient denies current SI/HI/AVH. Patient does have an extensive history of passive SI secondary to intoxication. Patient denies plan, intent, or method but reports more increased feelings of depression and sadness. Patient denies recent or past history of SIB. Substance Abuse/Use: Patient reports that he is currently drinking upwards of 9, 24 ounce Natty Daddy beers daily. Patient reports his last drink was 09/10/2029. Patient labs are positive for alcohol (0.384). Patient first drank alcohol when he was [age] years old. Patient reports that his use was regular in his 20s, and problematic 12 years ago. He cannot identify a trigger to his problematic use, other than, I like beer . He drinks the point of intoxication, blackouts, and vomiting. He denies history of withdrawal seizure, alcohol overdoses, or DTs. Patient does have extensive history of falls while intoxicated. Patient reports previous history of engagement with AA as well as IOP. Patient denies any history of MAT engagement. Patient reports his longest period of sobriety was 6 months. Patient reports however after leaving the unit during his previous admission he relapsed almost immediately. Patient has previous history of detox occurring on 10/25/2021, 02/15/2021 (left AMA), 06/09/20, 10/01/19, 08/31/19 (left AMA), 2016 (left AMA), and 2014 (left AMA). He denies history of residential treatment Medical/Self-care Issues: Patient has medical issues such as COPD, Lombardo's esophagus, macrocytosis, and HTN. Patient has ongoing struggles with self-care secondary to substance use disorder. Patient is increased in both frequency and tolerance over time. Patient also report struggling to recover from the effects of his substance use. Patient reports experiencing poor nutrition and sleep secondary to his substance use. Legal/Trauma/ History: Patient denies any current legal issues. Patient reports past legal history of child support violations. Patient denies any history of childhood abuse. Patient does report however his father when he was 11 years old which was a traumatic incident to him. Patient denies any history of trauma abuse as an adult. Patient denies any history [place] or status. Family Constellation/Childhood History: Patient reports that he is currently to his living in [facility]. Patient reports that he has 3 biological children and 4 stepchildren. Patient reports that his father in his 11 years old. Patient did not report his mother is still alive currently. Patient was born and raised in [place], [place] by his mother and father. He reports that his father when he was 11 years old, and this was traumatic for him. Patient reports that he was raised primarily by his mother for the remainder of his childhood. He denies childhood abuse. Education/Work: Patient reports that he graduated high school. 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 Patient denies SSI/SSD. Cultural/Spirituality/Leisure: Patient denies any cultural needs or concerns at the current time. Patient denies identify any yarsanism preference. It is unknown if patient is attending services anywhere currently. Patient reports he used to enjoy leisure activities such as golfing but has been unable to do so due to his ongoing substance use disorder. Support Systems/Collateral Information: Patient reports that his is his primary social. Patient reports that she is sober and supportive of his recovery needs and efforts. Patient reports that his is aware that he is admitted to the hospital. C-SSRS Actual Attempt (Past 3 Months): No (Patient has history of psychiatric admission. Reports admission was due to suicidal ideation while intoxicated Denies history of recent suicide attempts.) Actual Attempt (Lifetime): No (Patient denies past history of suicide attempts.) Interrupted Attempts (Past 3 Months): No (Patient denies) Interrupted Attempts (Lifetime): No (Patient denies) Aborted or Self-Interrupted Attempt (Past 3 Months): No (Patient denies) Aborted or Self-Interrupted Attempt (Lifetime): No (Patient denies) Preparatory Acts or Behavior (Past 3 Months): No (Patient denies) Preparatory Acts or Behavior (Lifetime): No (Patient denies) Has subject engaged in non-suicidal self-injurious behavior? (Past 3 Months): No (Patient denies recent history of SIB) Has subject engaged in non-suicidal self-injurious behavior? (Lifetime): No (Patient denies past history of SIB) Suicidal Ideation: (Patient denies current SI/HI/AVH. Patient does have an extensive history of passive SI secondary to intoxication. Patient denies plan, intent, or method but reports more increased feelings of depression and sadness.) Activating Events (Recent): Recent loss(es) or other significant negative event(s) (legal, financial, relationship, etc.) Describe:: Patient is ongoing struggles with alcohol use disorder Treatment History: Previous psychiatric diagnoses and treatments, Not receiving treatment (Patient has mental health diagnosis depression anxiety. Patient denies being on any medication for mental health needs. Patient has previous engagement with outpatient mental health providers but denies any current treatment.) Clinical Status (Recent): Hopelessness, Major depressive episode, Substance abuse or dependence, Agitation or severe anxiety, Perceived burden on family or others, Highly impulsive behavior (Risk factors) Protective Factors (Recent): Identifies reasons for living, Responsibility to family or others and/or living with family, Supportive social network or family (Protective factors) Describe any suicidal, self-injurious or aggressive behavior (include dates): Patient has history of psychiatric admission. Reports admission was due to suicidal ideation while intoxicated Denies history of recent or past suicide attempts. Patient denies current SI/HI/AVH. Patient does have an extensive history of passive SI secondary to intoxication. Patient denies plan, intent, or method but reports more increased feelings of depression and sadness. Patient denies recent or past history of SIB. Patient has mental health diagnosis depression anxiety. Patient denies being on any medication for mental health needs. Patient has previous engagement with outpatient mental health providers but denies any current treatment. Plan: Patient is unsure what he wants his postdischarge plan from the unit to look like. Patient is open to working with [facility] to identify an aftercare plan. Patient is encouraged to engage in all activities that are offered to him while he is on the unit. Patient not report anything additional at current time. Patient encouraged to seek out unit staff or [facility]IV[facility] ARCHIVIST should he identify any additional needs or concerns. Comment: Please note this report has been produced using speech recognition software and may contain errors related to that system including errors in grammar, punctuation, and spelling, as well as words and phrases that may be inappropriate. If there are any questions or concerns please feel free to contact the dictating provider for clarification. [facility] 09-10-2022 Emergency department Note Patient went to floor at shift change prior to this RN being able to see patient. Patient to floor with protective services and transport with belongings and papers. Report was completed by Preslie, RN prior to this nurse shift. Kristina Barajas RN 09/10/221940 [facility] 09-10-2022 Emergency department Note Patient went to floor at shift change prior to this RN being able to see patient. Patient to floor with protective services and transport with belongings and papers. Report was completed by JAY Ptee prior to this nurse shift. Kristina Barajas RN 09/10/221940 Report to Kristina THOMPSON. Juan R Garcia RN 09/10/221928 Report to Beena Valadez RN. Juan R Garcia RN 09/10/22 183 Belonging check performed via protective services. 1 personal belonging bag. Pt wanded and placed into inpatient gown. Gripper socks provided. Bagged lunch provided. Contract signed. Juan R Garcia RN 09/10/22 8805 Pt remains asleep at this time in no acute distress. Juan R Garcia RN 09/10/[address] Abraham, no phenobarbital at this time. Juan R Garcia RN 09/10/22 6857 Pt desatting upon falling asleep. Pt placed on 4L O2 at this time. Juan R Garcia RN 09/10/[address] Juan R Garcia RN 09/10/22 1424 [facility] EMERGENCY DEPT EMERGENCY DEPARTMENT ENCOUNTER Pt Name: Maria De Jesus Hogan Birthdate 1965 Date of evaluation: 09/10/2022 Provider: Triston Abraham MD CHIEF COMPLAINT Chief Complaint Patient presents with Alcohol Problem Pt arrives via triage wanting detox from alcohol. Pt drinks 7-9 tall beers a day. Pt hasn't been able to eat much in the past week. Pt having some nausea/vomiting. HISTORY OF PRESENT ILLNESS I wore a N95 mask for the entirety of this encounter. Maria De Jesus Hogan is a 56 y.o. male who presents to the emergency department with request for detox, nausea and vomiting for about 1 week. Patient says he cannot tolerate p.o. He typically drinks 7-9 tall beers per day. His last drink was at approximately 10 AM today. He says that he feels a bit shaky. He says he has had bad withdrawal before but he has never had a seizure. Nursing Notes were reviewed. Limitations to history: None Outside historians: Significant other REVIEW OF SYSTEMS (2+ for level 4; 10+ for level 5) Constitutional: as noted in HPI, and negative for fever/chills Eyes: as noted in HPI, and negative for vision changes ENT: as noted in HPI, and negative for cough CV: as noted in HPI, and negative for chest pain, negative for palpitations Resp: as noted in HPI, and negative for shortness of breath GI: as noted in HPI, and negative for abd pain : as noted in HPI, and negative for urinary symptoms MSK: as noted in HPI, and negative for muscle pain Skin: as noted in HPI, and negative for rash Neuro: as noted in HPI, and negative for headaches, negative for acute focal weakness/numbness PAST MEDICAL HISTORY Past Medical History: Diagnosis Date Alcohol abuse Alcohol dependence with withdrawal (HCC) 08/31/2019 Alcohol intoxication without use disorder, uncomplicated (HCC) 10/01/2019 Alcohol withdrawal, uncomplicated (HCC) 08/31/2019 Alcohol withdrawal, with unspecified complication (HCC) 10/02/2019 Alcohol withdrawal, with unspecified complication (HCC) 10/02/2019 Alcoholism (CMS/HCC) (HCC) Anxiety Cerebral artery occlusion with cerebral infarction (HCC) Cerebrovascular disease Depression Hypertension Insomnia SURGICAL HISTORY Past Surgical History: Procedure Laterality Date COLONOSCOPY 06/10/2020 EGD/Dr Madison/[facility] CYST REMOVAL face EGD (HISTORICAL) 07/23/2022 Dr. Estrella-[facility] UPP[facility] GASTROINTESTINAL ENDOSCOPY 09/27/2021 normal WISDOM TOOTH EXTRACTION CURRENT MEDICATIONS Previous Medications ALBUTEROL 108 (90 BASE) MCG/ACT INHALER Inhale 2 puffs every 6 hours as needed for wheezing or shortness of breath. CALCIPOTRIENE (DOVONEX) 0.005 % CREAM Apply topically 2 times daily. CLOBETASOL (TEMOVATE) 0.05 % CREAM Apply topically 2 times daily. GABAPENTIN (NEURONTIN) 600 MG TABLET Take 1 tablet (600 mg) by mouth 3 times daily. MELATONIN 5 MG TABLET Take 1 tablet (5 mg) by mouth Nightly. MULTIPLE VITAMINS TABLET Take 1 tablet by mouth daily. PANTOPRAZOLE (PROTONIX) 40 MG EC TABLET Take 1 tablet (40 mg) by mouth every morning (before breakfast). ROSUVASTATIN (CRESTOR) 10 MG TABLET ROSUVASTATIN (CRESTOR) 10 MG TABLET Take 1 tablet (10 mg) by mouth daily. ALLERGIES Bee venom, Nickel, and Tramadol FAMILY HISTORY Family History Problem Relation Name Age of Onset Depression Sister Cancer Mother colon rectal cancer; dx after age 50 Other (49102) Mother alcoholism Other (01923) Father h/o rheumatic fever, cardiac arrest due to bee sting Other (23940) Sister agoraphobia SOCIAL HISTORY Social History Socioeconomic History Marital status: Tobacco Use Smoking status: Every Day Packs/day: 2.00 Types: Cigarettes Smokeless tobacco: Never Vaping Use Vaping Use: Never used Substance and Sexual Activity Alcohol use: Yes Comment: beer 8 cans / day Drug use: No Social Determinants of Health Intimate Partner Violence: Not At Risk (07/22/2022) Humiliation, Afraid, Rape, and Kick questionnaire Fear of Current or Ex-Partner: No Emotionally Abused: No Physically Abused: No Sexually Abused: No SCREENINGS PHYSICAL EXAM (up to 7 for level 4, 8 or more for level 5) ED Triage Vitals [09/10/22 1220] Temp Heart Rate Resp BP 36.2 C (97.1 F) 109 16 112/80 SpO2 Temp Source Heart Rate Source Patient Position 97 % Temporal Monitor -- BP Location FiO2 (%) -- -- Constitutional: No acute distress HEENT:Head: Atraumatic/normocephalic Eyes: Conjunctivae normal. PERRLA, EOMI ENT: Mucous membranes moist. Normal oropharynx Neck: Normal ROM, supple CV: Tachycardic, regular RESP: CTAB, good respiratory effort, no increased wob GI: Abdomen soft, non-tender, non-distended, +BS, no guarding or rebound tenderness MSK: Normal bulk and tone, no gross deformity EXTR: Warm and well perfused, no edema SKIN: No rash/bruising/erythema PSYCH: Appropriate affect, cooperative behavior NEURO: Alert and oriented x 3, face symmetric, no slurred speech, CN2-12 intact, motor and sensory intact and equal bilaterally. DIAGNOSTIC RESULTS Procedures/EKG: EKG was reviewed by myself. Physician EKG interpretation can be found in [facility] RADIOLOGY (Per Emergency Physician): Interpretation per the Radiologist below, if available at the time of this note: CT abdomen pelvis wo IV contrast Final Result 1. No evidence of acute infectious or inflammatory process in the abdomen or pelvis. 2. The liver demonstrates generalized diminished attenuation as compared to the spleen, compatible with hepatic steatosis 3. Few scattered descending colon diverticula without evidence of acute diverticulitis Report Dictated on Electronically Signed By: Barry Lam Electronically Signed Date/Time: 09/10/2022 2:52 PM EDT LABS: Labs Reviewed CBC WITH AUTO DIFFERENTIAL - Abnormal Result Value Auto WBC 5.3 RBC 4.97 Hemoglobin 16.6 Hematocrit 49.7 MCV 100.0 (*) MCH 33.4 MCHC 33.5 RDW 13.8 Platelets 183 MPV 7.7 nRBC 0.3 Neutrophils Relative 60.5 Lymphocytes Relative 23.3 Monocytes Relative 14.2 (*) Eosinophils Relative 0.6 (*) Basophils Relative 1.4 Neutrophils Absolute 3.2 Lymphocytes Absolute 1.2 Monocytes Absolute 0.7 Eosinophils Absolute 0.0 Basophils Absolute 0.1 COMPREHENSIVE METABOLIC PANEL - Abnormal SODIUM 132 (*) POTASSIUM 4.3 CHLORIDE 98 CARBON DIOXIDE 24 ANION GAP 10 UREA NITROGEN 6 (*) CREATININE 0.57 (*) GLUCOSE 141 (*) CALCIUM 8.0 (*) AST (SGOT) 156 (*) ALT 123 (*) ALKALINE PHOSPHATASE 140 (*) ALBUMIN 4.2 BILIRUBIN, TOTAL 0.6 TOTAL PROTEIN 7.5 eGFR >90.0 Narrative: Slightly Hemolyzed. Interpret ALKALINE PHOSPHATASE, AST, and POTASSIUM with caution. ETHANOL - Abnormal ETHANOL IN SER/PLAS 0.384 (*) Narrative: Slightly Hemolyzed. Interpret with caution. NOTE: This result is for medical treatment only. Analysis performed using non-forensic procedures. ACETAMINOPHEN LEVEL - Abnormal ACETAMINOPHEN <10.0 (*) LIPASE - Abnormal LIPASE 389 (*) SARS-COV-2 BY PCR - Normal SARS-CoV-2 Not Detected Narrative: Methodology: real-time, RT-PCR The SARS-CoV-2 assay is intended for in vitro diagnostic use under the FDA Emergency Use Authorization (EUA). This test has not been FDA cleared or approved. In compliance with this authorization, please visit www.fda.gov/media/781464/download or www.fda.gov/media/709298/download to access the applicable information sheets. CK - Normal CK 107 DRUGS OF ABUSE AMPHETAMINE SCREEN Negative BARBITURATES SCREEN Negative BENZODIAZEPINE SCREEN Negative COCAINE METAB. SCREEN Negative METHADONE SCREEN Negative OPIATES SCREEN Negative OXYCODONE SCREEN Negative PHENCYCLIDINE SCREEN Negative Narrative: The expected value for all of the drugs listed above is Negative. The following drugs or drug groups have been screened for by Immunoassay at the following thresholds: Amphetamine class (1000 ng/mL) Barbiturates (200 ng/mL) Benzodiazepines (200 ng/mL) Cocaine (300 ng/mL) Methadone (300 ng/mL) Opiates (300 ng/mL) Oxycodone (100 ng/mL) PCP (25 ng/mL) NOTE: These results are for medical treatment only. Analysis performed using non-forensic procedures. POSITIVE results are NOT confirmed by a more specific alternative method unless requested. If confirmation is needed, request confirmation under separate order. EMERGENCY DEPARTMENT COURSE and DIFFERENTIAL DIAGNOSIS/MDM: Vitals: Vitals: 09/10/22 1220 09/10/22 1329 09/10/22 1448 09/10/22 1551 BP: 112/80 (!) 158/143 117/81 Pulse: 109 (!) 114 108 Resp: 16 18 Temp: 36.2 C (97.1 F) TempSrc: Temporal SpO2: 97% 92% 98% Medications LORazepam (Ativan) tablet 1 mg ( Oral See Alternative 09/10/22 1405) Or LORazepam (Ativan) injection 1 mg (1 mg IntraVENous Given 09/10/22 140) Or LORazepam (Ativan) tablet 2 mg ( Oral See Alternative 09/10/22 1405) Or LORazepam (Ativan) injection 2 mg ( IntraVENous See Alternative 09/10/22 140) Or LORazepam (Ativan) tablet 3 mg ( Oral See Alternative 09/10/22 1405) Or LORazepam (Ativan) injection 3 mg ( IntraVENous See Alternative 09/10/22 1405) Or LORazepam (Ativan) tablet 4 mg ( Oral See Alternative 09/10/22 1405) Or LORazepam (Ativan) injection 4 mg ( IntraVENous See Alternative 09/10/22 1405) albuterol 108 (90 Base) MCG/ACT inhaler 2 puff (has no administration in time range) gabapentin (Neurontin) capsule 600 mg (has no administration in time range) melatonin tablet 5 mg (has no administration in time range) multiple vitamin tablet (has no administration in time range) pantoprazole (ProtoNix) EC tablet 40 mg (has no administration in time range) hydrOXYzine pamoate (Vistaril) capsule 50 mg (has no administration in time range) ibuprofen tablet 400 mg (has no administration in time range) loperamide (Imodium) capsule 2 mg (has no administration in time range) ondansetron ODT (Zofran-ODT) disintegrating tablet 4 mg (has no administration in time range) traZODone (Desyrel) tablet 50 mg (has no administration in time range) Thiamine Mononitrate (Vitamin B1) tablet 100 mg (has no administration in time range) folic acid (Folvite) tablet 1 mg (has no administration in time range) ondansetron (Zofran) injection 4 mg (4 mg IntraVENous Given 09/10/22 1328) lactated ringers bolus 1,000 mL (1,000 mL IntraVENous New Bag 09/10/22 1309) I personally saw the patient and performed a substantive portion of the visit including all aspects of the medical decision making. Patient appears nontoxic. His CIWA score is 8. His ethanol level is 0.384. Is unlikely that he is in significant withdrawal given the elevated ethanol level. Prior to the ethanol level returning, he was given Ativan 1 mg IV. He was also given Zofran 4 mg IV for nausea. He appeared much more comfortable subsequently. Labs significant for no leukocytosis, minimally elevated lipase at 389. Mild hyponatremia of 132. His AST and ALT and alk phos are mildly elevated likely secondary to alcohol consumption. His CT abdomen pelvis is no acute abnormalities and no signs of pancreatitis. I discussed with the addiction medicine doctor as below and admitted the patient. He requested a phenobarbital p.o. dose however the patient is quite sleepy at the moment. ED Course as of 09/10/22 1611 Mon Sep 10, 2022 1408 ETHANOL IN SER/PLAS(!!): 0.384 [SHELDON] 1508 CT abdomen pelvis wo IV contrast IMPRESSION: 1. No evidence of acute infectious or inflammatory process in the abdomen or pelvis. 2. The liver demonstrates generalized diminished attenuation as compared to the spleen, compatible with hepatic steatosis 3. Few scattered descending colon diverticula without evidence of acute diverticulitis [SHELDON] 1529 CIWA was 8 at 1405 [SHELDON] 1607 I initially ordered phenobarbital as recommended by Dr. Rodriguez from addiction medicine who had excepted the patient however the patient is rather sleepy right now thus I corrie cancel the phenobarbital order [SHELDON] ED Course User Index [SHELDON] Triston Abraham MD Diagnoses as of 09/10/22 1611 Alcohol use disorder Alcohol withdrawal syndrome without complication (HCC) External records reviewed: Inpatient notes -discharge summary from July 23, 2022 Diagnostics interpreted by me: As above Discussions with other clinicians: As above Chronic conditions impacting care: Alcohol use disorder CONSULTS: None FINAL IMPRESSION 1. Alcohol withdrawal syndrome without complication (HCC) 2. Alcohol use disorder DISPOSITION/PLAN Admit 09/10/2022 04:01:15 PM PATIENT REFERRED TO: No follow-up provider specified. DISCHARGE MEDICATIONS: New Prescriptions No medications on file (Please note: Portions of this note were completed with a voice recognition program. Efforts were made to edit the dictations but occasionally words and phrases are mis-transcribed.) Triston Abraham MD PATRICIA Emergency Medicine Physician [facility] Triston Abraham MD 09/10/22 1611 documented in this encounter [facility] 09-10-2022 Emergency department Note Report to Kristina THOMPSON. Juan R Garcia RN 09/10/22 1929 [facility] 09-10-2022 Emergency department Note Report to Beena Valadez RN. Juan R Garcia RN 09/10/22 1835 [facility] 09-10-2022 Emergency department Note Belonging check performed via protective services. 1 personal belonging bag. Pt wanded and placed into inpatient gown. Gripper socks provided. Bagged lunch provided. Contract signed. Juan R Garcia RN 09/10/22 2715 [facility] 09-10-2022 Emergency department Note Pt remains asleep at this time in no acute distress. Juan R Garcia RN 09/10/22 1658 [facility] 09-10-[address] Emergency [address] Dr. Abraham, no phenobarbital at this time. Juan R Garcia RN 09/10/22 1609 [facility] 09-10-2022 Emergency department Note Pt desatting upon falling asleep. Pt placed on 4L O2 at this time. Juan R Garcia RN 09/10/22 1551 [facility] 09-10-2022 Emergency department Note Pt returned from CT. Juan R Garcia RN 09/10/22 1424 [facility] 09-10-2022 Physician Emergency department Note [facility] EMERGENCY DEPT EMERGENCY DEPARTMENT ENCOUNTER Pt Name: Maria De Jesus Hogan Birthdate 1965 Date of evaluation: 09/10/2022 Provider: Triston Abraham MD CHIEF COMPLAINT Chief Complaint Patient presents with Alcohol Problem Pt arrives via triage wanting detox from alcohol. Pt drinks 7-9 tall beers a day. Pt hasn't been able to eat much in the past week. Pt having some nausea/vomiting. HISTORY OF PRESENT ILLNESS I wore a N95 mask for the entirety of this encounter. Maria De Jesus Hogan is a 56 y.o. male who presents to the emergency department with request for detox, nausea and vomiting for about 1 week. Patient says he cannot tolerate p.o. He typically drinks 7-9 tall beers per day. His last drink was at approximately 10 AM today. He says that he feels a bit shaky. He says he has had bad withdrawal before but he has never had a seizure. Nursing Notes were reviewed. Limitations to history: None Outside historians: Significant other REVIEW OF SYSTEMS (2+ for level 4; 10+ for level 5) Constitutional: as noted in HPI, and negative for fever/chills Eyes: as noted in HPI, and negative for vision changes ENT: as noted in HPI, and negative for cough CV: as noted in HPI, and negative for chest pain, negative for palpitations Resp: as noted in HPI, and negative for shortness of breath GI: as noted in HPI, and negative for abd pain : as noted in HPI, and negative for urinary symptoms MSK: as noted in HPI, and negative for muscle pain Skin: as noted in HPI, and negative for rash Neuro: as noted in HPI, and negative for headaches, negative for acute focal weakness/numbness PAST MEDICAL HISTORY Past Medical History: Diagnosis Date Alcohol abuse Alcohol dependence with withdrawal (HCC) 08/31/2019 Alcohol intoxication without use disorder, uncomplicated (HCC) 10/01/2019 Alcohol withdrawal, uncomplicated (HCC) 08/31/2019 Alcohol withdrawal, with unspecified complication (HCC) 10/02/2019 Alcohol withdrawal, with unspecified complication (HCC) 10/02/2019 Alcoholism (CMS/HCC) (HCC) Anxiety Cerebral artery occlusion with cerebral infarction (HCC) Cerebrovascular disease Depression Hypertension Insomnia SURGICAL HISTORY Past Surgical History: Procedure Laterality Date COLONOSCOPY 06/10/2020 EGD/Dr Madison/[facility] CYST REMOVAL face EGD (HISTORICAL) 07/23/2022 Dr. Estrella-[facility]OS[facility] 09/27/2021 normal WISDOM TOOTH EXTRACTION CURRENT MEDICATIONS Previous Medications ALBUTEROL 108 (90 BASE) MCG/ACT INHALER Inhale 2 puffs every 6 hours as needed for wheezing or shortness of breath. CALCIPOTRIENE (DOVONEX) 0.005 % CREAM Apply topically 2 times daily. CLOBETASOL (TEMOVATE) 0.05 % CREAM Apply topically 2 times daily. GABAPENTIN (NEURONTIN) 600 MG TABLET Take 1 tablet (600 mg) by mouth 3 times daily. MELATONIN 5 MG TABLET Take 1 tablet (5 mg) by mouth Nightly. MULTIPLE VITAMINS TABLET Take 1 tablet by mouth daily. PANTOPRAZOLE (PROTONIX) 40 MG EC TABLET Take 1 tablet (40 mg) by mouth every morning (before breakfast). ROSUVASTATIN (CRESTOR) 10 MG TABLET ROSUVASTATIN (CRESTOR) 10 MG TABLET Take 1 tablet (10 mg) by mouth daily. ALLERGIES Bee venom, Nickel, and Tramadol FAMILY HISTORY Family History Problem Relation Name Age of Onset Depression Sister Cancer Mother colon rectal cancer; dx after age 50 Other (78472) Mother alcoholism Other ([id number]) Father h/o rheumatic fever, cardiac arrest due to bee sting Other ([id number]) Sister agoraphobia SOCIAL HISTORY Social History Socioeconomic History Marital status: Tobacco Use Smoking status: Every Day Packs/day: 2.00 Types: Cigarettes Smokeless tobacco: Never Vaping Use Vaping Use: Never used Substance and Sexual Activity Alcohol use: Yes Comment: beer 8 cans / day Drug use: No Social Determinants of Health Intimate Partner Violence: Not At Risk (07/22/2022) Humiliation, Afraid, Rape, and Kick questionnaire Fear of Current or Ex-Partner: No Emotionally Abused: No Physically Abused: No Sexually Abused: No SCREENINGS PHYSICAL EXAM (up to 7 for level 4, 8 or more for level 5) ED Triage Vitals [09/10/22 1220] Temp Heart Rate Resp BP 36.2 C (97.1 F) 109 16 112/80 SpO2 Temp Source Heart Rate Source Patient Position 97 % Temporal Monitor -- BP Location FiO2 (%) -- -- Constitutional: No acute distress HEENT:Head: Atraumatic/normocephalic Eyes: Conjunctivae normal. PERRLA, EOMI ENT: Mucous membranes moist. Normal oropharynx Neck: Normal ROM, supple CV: Tachycardic, regular RESP: CTAB, good respiratory effort, no increased wob GI: Abdomen soft, non-tender, non-distended, +BS, no guarding or rebound tenderness MSK: Normal bulk and tone, no gross deformity EXTR: Warm and well perfused, no edema SKIN: No rash/bruising/erythema PSYCH: Appropriate affect, cooperative behavior NEURO: Alert and oriented x 3, face symmetric, no slurred speech, CN2-12 intact, motor and sensory intact and equal bilaterally. DIAGNOSTIC RESULTS Procedures/EKG: EKG was reviewed by myself. Physician EKG interpretation can be found in [facility] RADIOLOGY (Per Emergency Physician): Interpretation per the Radiologist below, if available at the time of this note: CT abdomen pelvis wo IV contrast Final Result 1. No evidence of acute infectious or inflammatory process in the abdomen or pelvis. 2. The liver demonstrates generalized diminished attenuation as compared to the spleen, compatible with hepatic steatosis 3. Few scattered descending colon diverticula without evidence of acute diverticulitis Report Dictated on Electronically Signed By: Barry Lam Electronically Signed Date/Time: 09/10/2022 2:52 PM EDT LABS: Labs Reviewed CBC WITH AUTO DIFFERENTIAL - Abnormal Result Value Auto WBC 5.3 RBC 4.97 Hemoglobin 16.6 Hematocrit 49.7 MCV 100.0 (*) MCH 33.4 MCHC 33.5 RDW 13.8 Platelets 183 MPV 7.7 nRBC 0.3 Neutrophils Relative 60.5 Lymphocytes Relative 23.3 Monocytes Relative 14.2 (*) Eosinophils Relative 0.6 (*) Basophils Relative 1.4 Neutrophils Absolute 3.2 Lymphocytes Absolute 1.2 Monocytes Absolute 0.7 Eosinophils Absolute 0.0 Basophils Absolute 0.1 COMPREHENSIVE METABOLIC PANEL - Abnormal SODIUM 132 (*) POTASSIUM 4.3 CHLORIDE 98 CARBON DIOXIDE 24 ANION GAP 10 UREA NITROGEN 6 (*) CREATININE 0.57 (*) GLUCOSE 141 (*) CALCIUM 8.0 (*) AST (SGOT) 156 (*) ALT 123 (*) ALKALINE PHOSPHATASE 140 (*) ALBUMIN 4.2 BILIRUBIN, TOTAL 0.6 TOTAL PROTEIN 7.5 eGFR >90.0 Narrative: Slightly Hemolyzed. Interpret ALKALINE PHOSPHATASE, AST, and POTASSIUM with caution. ETHANOL - Abnormal ETHANOL IN SER/PLAS 0.384 (*) Narrative: Slightly Hemolyzed. Interpret with caution. NOTE: This result is for medical treatment only. Analysis performed using non-forensic procedures. ACETAMINOPHEN LEVEL - Abnormal ACETAMINOPHEN <10.0 (*) LIPASE - Abnormal LIPASE 389 (*) SARS-COV-2 BY PCR - Normal SARS-CoV-2 Not Detected Narrative: Methodology: real-time, RT-PCR The SARS-CoV-2 assay is intended for in vitro diagnostic use under the FDA Emergency Use Authorization (EUA). This test has not been FDA cleared or approved. In compliance with this authorization, please visit www.fda.gov/media/505920/download or www.fda.gov/media/657487/download to access the applicable information sheets. CK - Normal CK 107 DRUGS OF ABUSE AMPHETAMINE SCREEN Negative BARBITURATES SCREEN Negative BENZODIAZEPINE SCREEN Negative COCAINE METAB. SCREEN Negative METHADONE SCREEN Negative OPIATES SCREEN Negative OXYCODONE SCREEN Negative PHENCYCLIDINE SCREEN Negative Narrative: The expected value for all of the drugs listed above is Negative. The following drugs or drug groups have been screened for by Immunoassay at the following thresholds: Amphetamine class (1000 ng/mL) Barbiturates (200 ng/mL) Benzodiazepines (200 ng/mL) Cocaine (300 ng/mL) Methadone (300 ng/mL) Opiates (300 ng/mL) Oxycodone (100 ng/mL) PCP (25 ng/mL) NOTE: These results are for medical treatment only. Analysis performed using non-forensic procedures. POSITIVE results are NOT confirmed by a more specific alternative method unless requested. If confirmation is needed, request confirmation under separate order. EMERGENCY DEPARTMENT COURSE and DIFFERENTIAL DIAGNOSIS/MDM: Vitals: Vitals: 09/10/22 1220 09/10/22 1329 09/10/22 1448 09/10/22 1551 BP: 112/80 (!) 158/143 117/81 Pulse: 109 (!) 114 108 Resp: 16 18 Temp: 36.2 C (97.1 F) TempSrc: Temporal SpO2: 97% 92% 98% Medications LORazepam (Ativan) tablet 1 mg ( Oral See Alternative 09/10/22 140) Or LORazepam (Ativan) injection 1 mg (1 mg IntraVENous Given 09/10/221404) Or LORazepam (Ativan) tablet 2 mg ( Oral See Alternative 09/10/221404) Or LORazepam (Ativan) injection 2 mg ( IntraVENous See Alternative 09/10/221404) Or LORazepam (Ativan) tablet 3 mg ( Oral See Alternative 09/10/221404) Or LORazepam (Ativan) injection 3 mg ( IntraVENous See Alternative 09/10/221404) Or LORazepam (Ativan) tablet 4 mg ( Oral See Alternative 09/10/221404) Or LORazepam (Ativan) injection 4 mg ( IntraVENous See Alternative 09/10/221404) albuterol 108 (90 Base) MCG/ACT inhaler 2 puff (has no administration in time range) gabapentin (Neurontin) capsule 600 mg (has no administration in time range) melatonin tablet 5 mg (has no administration in time range) multiple vitamin tablet (has no administration in time range) pantoprazole (ProtoNix) EC tablet 40 mg (has no administration in time range) hydrOXYzine pamoate (Vistaril) capsule 50 mg (has no administration in time range) ibuprofen tablet 400 mg (has no administration in time range) loperamide (Imodium) capsule 2 mg (has no administration in time range) ondansetron ODT (Zofran-ODT) disintegrating tablet 4 mg (has no administration in time range) traZODone (Desyrel) tablet 50 mg (has no administration in time range) Thiamine Mononitrate (Vitamin B1) tablet 100 mg (has no administration in time range) folic acid (Folvite) tablet 1 mg (has no administration in time range) ondansetron (Zofran) injection 4 mg (4 mg IntraVENous Given 09/10/22 1328) lactated ringers bolus 1,000 mL (1,000 mL IntraVENous New Bag 09/10/22 1309) I personally saw the patient and performed a substantive portion of the visit including all aspects of the medical decision making. Patient appears nontoxic. His CIWA score is 8. His ethanol level is 0.384. Is unlikely that he is in significant withdrawal given the elevated ethanol level. Prior to the ethanol level returning, he was given Ativan 1 mg IV. He was also given Zofran 4 mg IV for nausea. He appeared much more comfortable subsequently. Labs significant for no leukocytosis, minimally elevated lipase at 389. Mild hyponatremia of 132. His AST and ALT and alk phos are mildly elevated likely secondary to alcohol consumption. His CT abdomen pelvis is no acute abnormalities and no signs of pancreatitis. I discussed with the addiction medicine doctor as below and admitted the patient. He requested a phenobarbital p.o. dose however the patient is quite sleepy at the moment. ED Course as of 09/10/22 161 Mon Sep 10, 2022 1408 ETHANOL IN SER/PLAS(!!): 0.384 [SHELDON] 1508 CT abdomen pelvis wo IV contrast IMPRESSION: 1. No evidence of acute infectious or inflammatory process in the abdomen or pelvis. 2. The liver demonstrates generalized diminished attenuation as compared to the spleen, compatible with hepatic steatosis 3. Few scattered descending colon diverticula without evidence of acute diverticulitis [SHELDON] 1529 CIWA was 8 at 1405 [SHELDON] 1607 I initially ordered phenobarbital as recommended by Dr. Rodriguez from addiction medicine who had excepted the patient however the patient is rather sleepy right now thus I corrie cancel the phenobarbital order [SHELDON] ED Course User Index [SHELDON] Triston Abraham MD Diagnoses as of 09/10/22 1611 Alcohol use disorder Alcohol withdrawal syndrome without complication (HCC) External records reviewed: Inpatient notes -discharge summary from July 23, 2022 Diagnostics interpreted by me: As above Discussions with other clinicians: As above Chronic conditions impacting care: Alcohol use disorder CONSULTS: None FINAL IMPRESSION 1. Alcohol withdrawal syndrome without complication (HCC) 2. Alcohol use disorder DISPOSITION/PLAN Admit 09/10/2022 04:01:15 PM PATIENT REFERRED TO: No follow-up provider specified. DISCHARGE MEDICATIONS: New Prescriptions No medications on file (Please note: Portions of this note were completed with a voice recognition program. Efforts were made to edit the dictations but occasionally words and phrases are mis-transcribed.) Triston Abraham MD PATRICIA Emergency Medicine Physician [facility] Triston Abraham MD 09/10/22 1611 [facility] 08-01-2022 History of Present illness Narrative Images from the original note were not included. [facility] [address] [id number] Dept: [phone] Dept Loc: [phone] Reason for Visit: Follow-up (Discuss results and COPD ) Assessment and Plan 1. Uncomplicated alcohol dependence (HCC) recheck sodium level - Ambulatory referral to Addiction Intensive Outpatient Program 2. Elevated liver enzymes to stay away from alcohol referral was done to alcohol addiction I discussed with patient to get restarted on the Protonix due to his Lombardo's esophagitis I also recommended follow-up with GI - pantoprazole (ProtoNix) 40 MG EC tablet; Take 1 tablet (40 mg) by mouth every morning (before breakfast)., Starting Sat08/01/2022, Normal - [facility] 3. Abnormal EKG EKG reviewed from hospital. We will order an echocardiogram - Transthoracic echocardiogram (TTE) complete with contrast, bubble, strain, and 3D PRN - perflutren lipid microspheres (Definity) injection 1.65 mg; 1.65 mg, IntraVENous, IMG once PRN, other, Suboptimal echo image, Starting on Sat08/01/22 at 0850, For 1 dose, CV Procedural MedicationsAdminister up to 1.65 mg via slow IVP for suboptimal echocardiogram enhancement. May administer a calculated dose or diluted 8.5 mL of 0.9% sodium chloride for a total volume of 10 mL. May administer as divided doses to reach optimal image enhancement 4. SOB (shortness of breath) - Complete PFT study - XR chest 2 views - Comprehensive metabolic panel 5. Lombardo's esophagus with dysplasia started patient on Protonix - [facility] 6. Screening for colon cancer - [facility] 7. ED (erectile dysfunction) of non-organic origin - [facility] Urology current treatment plan is effective, no change in therapy, orders and follow up as documented in EMR, lab results reviewed with patient, repeat labs ordered prior to next appointment, reviewed compliance with lifestyle measures, reviewed diet, exercise and weight control, reviewed medications and side effects in detail Return visit in 3 months. Subjective Cough This is a chronic problem. The current episode started 1 to 4 weeks ago. The problem has been rapidly worsening. The problem occurs constantly. The cough is Non-productive. Associated symptoms include heartburn, hemoptysis, nasal congestion, a rash, shortness of breath and wheezing. Pertinent negatives include no chest pain, chills, headaches, postnasal drip, sore throat, sweats or weight loss. The symptoms are aggravated by lying down. Risk factors for lung disease include smoking/tobacco exposure. this is a 56-year-old patient with multiple medical problems. Initially the patient was admitted a few days ago for detox from alcohol and complaining for hematemesis, GI was consulted and EGD was done that showed Lombardo's esophagitis. Patient left the hospital AGAINST MEDICAL ADVICE. Patient stated he stopped Protonix I had a conversation with him due to his Lombardo's he needs to continue his Protonix so I refilled his prescription he was also found to be hyponatremic most likely caused by alcohol I also discussed with patient to stop drinking alcohol he goes to AA meetings I offered him a referral to [facility] patient is agreeable to this. He also has been having some issues with shortness of breath he is a smoker at this time he does declined to quit he has no known history of asthma or COPD however we also discussed his EKG findings which showed some possible atrial enlargement. He is not having any chest pain. Review of Systems Constitutional: Negative for chills and weight loss. HENT: Negative for postnasal drip and sore throat. Respiratory: Positive for cough, hemoptysis, shortness of breath and wheezing. Cardiovascular: Negative for chest pain. Gastrointestinal: Positive for heartburn. Skin: Positive for rash. Neurological: Negative for headaches. Allergies Allergen Reactions Bee Venom Swelling Nickel Rash Tramadol Nausea And Vomiting Other reaction(s): [facility] Outpatient Medications Prior to Visit Medication Sig Dispense Refill albuterol 108 (90 Base) MCG/ACT inhaler Inhale 2 puffs every 6 hours as needed for wheezing or shortness of breath. 18 g 3 calcipotriene (Dovonex) 0.005 % cream Apply topically 2 times daily. 60 g 2 clobetasol (Temovate) 0.05 % cream Apply topically 2 times daily. 15 g 0 gabapentin (Neurontin) 600 MG tablet Take 1 tablet (600 mg) by mouth 3 times daily. 90 tablet 0 melatonin 5 MG tablet Take 5 mg by mouth. Multiple Vitamins tablet Take 1 tablet by mouth. rosuvastatin (Crestor) 10 MG tablet rosuvastatin (Crestor) 10 MG tablet Take 1 tablet (10 mg) by mouth daily. 30 tablet 5 pantoprazole (ProtoNix) 40 MG EC tablet Take 1 tablet (40 mg) by mouth every morning (before breakfast). (Patient not taking: Reported on 07/21/2022) 30 tablet 3 No facility-administered medications prior to visit. Patient Active Problem List Diagnosis Elevated liver enzymes Hematemesis Cigarette smoker Hepatic steatosis Severe alcohol use disorder (HCC) Anxiety Alcohol withdrawal syndrome with complication (HCC) Depression Insomnia Elevated liver function tests Esophagitis Lombardo's esophagus determined by endoscopy Lombardo esophagus Chronic alcohol abuse Atelectasis Hyponatremia Pneumatosis coli UGIB (upper gastrointestinal bleed) Hypochloremia Transaminitis Hematemesis with nausea Past Medical History: Diagnosis Date Alcohol abuse Alcohol dependence with withdrawal (HCC) 08/31/2019 Alcohol intoxication without use disorder, uncomplicated (HCC) 10/01/2019 Alcohol withdrawal, uncomplicated (HCC) 08/31/2019 Alcohol withdrawal, with unspecified complication (HCC) 10/02/2019 Alcohol withdrawal, with unspecified complication (HCC) 10/02/2019 Alcoholism (CMS/HCC) (HCC) Anxiety Cerebral artery occlusion with cerebral infarction (HCC) Cerebrovascular disease Depression Hypertension Insomnia Social History Tobacco Use Smoking status: Every Day Packs/day: 2.00 Types: Cigarettes Smokeless tobacco: Never Substance Use Topics Alcohol use: Yes Comment: beer 8 cans / day Past Surgical History: Procedure Laterality Date COLONOSCOPY 06/10/2020 EGD/Dr Gacad/[facility] CYST REMOVAL face EGD (HISTORICAL) 07/23/2022 Dr. Estrella-[facility] 09/27/2021 normal WISDOM TOOTH EXTRACTION Family History Problem Relation Name Age of Onset Depression Sister Cancer Mother colon rectal cancer; dx after age 50 Other (50495) Mother alcoholism Other (24833) Father h/o rheumatic fever, cardiac arrest due to bee sting Other (72581) Sister agoraphobia Health Maintenance Topic Date Due Hepatitis B Vaccines (1 of 3 - 3-dose series) Never done HIV Screening Never done Colorectal Cancer Screening Never done Hepatitis A Vaccines (1 of 2 - Risk 2-dose series) Never done MMR Vaccines (1 of 1 - Standard series) Never done Depresssion Monitoring Never done DTaP/Tdap/Td Vaccines (1 - Tdap) Never done Zoster Vaccines (1 of 2) Never done Pneumococcal Vaccine: Pediatrics (0 to 5 Years) and At-Risk Patients (6 to 64 Years) (2 - PCV) 01/24/2018 COVID-19 Vaccine (4 - Booster for Pfizer series) 05/04/2021 Influenza Vaccine (Season Ended) 2022 Lipid Panel 07/10/2027 Hepatitis C Screening Completed HIB Vaccines Aged Out IPV Vaccines Aged Out Meningococcal Vaccine Aged Out Rotavirus Vaccines Aged Out HPV Vaccines Aged Out Objective BP 105/76 Pulse 93 Temp 37.2 C (99 F) Ht 5' 10 (1.778 m) Wt 222 lb (101 kg) SpO2 95% BMI 31.85 kg/m Physical Exam Data Reviewed and Summarized Labs: Lab Results Component Value Date WBC 5.8 07/23/2022 HGB 15.9 07/23/2022 HCT 46.9 07/23/2022 PLT 198 07/23/2022 TSH 2.092 07/21/2022 PSA 1.035 07/09/2022 INR 0.9 07/21/2022 Lab Results Component Value Date NA 132 (L) 07/23/2022 K 4.0 07/23/2022 CL 95 (L) 07/23/2022 CO2 36 (H) 07/23/2022 BUN 10 07/23/2022 CREATININE 0.77 07/23/2022 GLUCOSE 98 07/23/2022 CALCIUM 8.6 07/23/2022 PROT 7.5 07/23/2022 BILITOT 1.0 07/23/2022 ALKPHOS 126 07/23/2022 AST 40 07/23/2022 ALT 36 07/23/2022 @GLUCOSELAB@ Lab Results Component Value Date CHOL 242 (H) 07/09/2022 CHOL 285 (A) 09/01/2020 CHOL 262 (A) 02/14/2019 Lab Results Component Value Date TRIG 126 07/09/2022 TRIG 120 09/01/2020 TRIG 162 (A) 02/14/2019 Lab Results Component Value Date HDL 70 (H) 07/09/2022 HDL 68 (H) 09/01/2020 HDL 43 02/14/2019 Lab Results Component Value Date LDLCALC 147 (H) 07/09/2022 No results found for: VLDL Lab Results Component Value Date CHOLHDLRATIO 3 07/09/2022 CHOLHDLRATIO 4 09/01/2020 CHOLHDLRATIO 6 02/14/2019 Imaging/Testing: ECG 12 lead SINUS RHYTHM PROBABLE LEFT ATRIAL ABNORMALITY RSR' IN V1 OR V2, RIGHT VCD OR RVH Compared to ECG 06/06/2021 16:40:22 Electronically Signed On 07-21-2022 21:01:15 EDT by Arsenio Villalta CT abdomen pelvis w contrast Narrative: Patient Name: MARIA DE JESUS HOGAN : 1965 Exam Date/Time: 07/21/2022 17:53 Procedure: CT ABDOMEN PELVIS W CONTRAST Ordering Provider: VILLALTA TYLER Reason For Exam: upper abd pain, hematemesis, eval for bleeding source, pancratitis CT ABDOMEN AND PELVIS WITH CONTRAST CLINICAL INDICATION: Upper abdominal pain and hematemesis.. TECHNIQUE: Multi-axial 3mm sections through the abdomen and pelvis following 75 mL of Isoview contrast media. No oral contrast was administered. Coronal and sagittal reconstructions were reviewed. Dose reduction was employed with automated exposure control. COMPARISON: 06/06/2021. FINDINGS: Lung bases: Normal. Liver: Liver is diffusely low in density consistent with fatty liver change. No focal lesion. Biliary tree: The gallbladder is unremarkable. No biliary dilatation. Spleen: Normal. Adrenals: Normal. Pancreas: Normal. Kidneys: Symmetric contrast enhancement without evidence of hydronephrosis. No focal renal lesion is identified. Free air or fluid: None. Mesenteric/retroperitoneal: No adenopathy or inflammation. Aorta: Atherosclerotic calcific aortic and iliac artery changes. Bowel: The appendix is not visualized and no pericecal inflammatory changes are evident.. No dilatation is noted. Sigmoid diverticulosis without evidence of acute diverticulitis. No definite evidence of pneumatosis coli. Abdominal wall: No ventral hernia is evident. Pelvic organs/viscera: No mass identified. Bladder is normally distended. No pelvic free fluid. Inguinal lymphadenopathy: None. Osseous structures: Lumbar degenerative spondylosis. Impression: No acute abdominal or pelvic findings to explain symptoms. Hepatic steatosis. Sigmoid diverticulosis. Report Dictated on Workstation: [id number] Electronically Signed By: Joon Foley Electronically Signed Date/Time: 07/21/2022 6:02 PM EDT Lynda Rasheed MD documented in this encounter [facility] 07-23-2022 Consult note Associated Order (s): IP CONSULT TO ADDICTION MEDICINE [facility] Consult service H&P Admit Date: 07/21/2022 Primary Care Physician: Lynda Rasheed MD ] Chief Complaint Patient presents with Alcohol Problem Pt states that he is a daily drinker, usually 8-9 tall boys a day. Pt has been vomiting x1 week and states he has been getting intoxicated from drinking but is not keeping down what he normally would. 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 Also reports BRB in his vomit. Substance dependence disorder History of Present Illness Maria De Jesus Hogan is a 56 y.o. year old male with 30+ years of alcohol use disorder Patient states that he drinks 6 of the 12 ounce beers daily last drink was 2 days ago Patient denies any other drug use Longest sober is couple of months Patient denies any history of seizures Denies any history of DTs Has occasional blackouts He denies any legal issues He denies any overdoses or IV drug use The patient denies any history of psych hospitalization Denies any suicidal homicidal ideation currently remotely Denies any childhood trauma or PTSD Denies any psych diagnoses Patient says his last drink was 2 days ago he presented to the emergency department with alcohol level of 0.323 His urine drug screen was negative Substance Use Disorder Criteria 1. Taking substance in larger amounts and/or for longer than intended [x] 2. Wanting to cut down or quit substance use but not being able to [x] 3. Spending a lot of time obtaining the substance [x] 4. Craving or a strong desire to use substance [x] 5. Repeatedly doesn't carry out major obligations due to substance use [x] 6. Using despite recurring social or interpersonal problems caused by substance use [x] 7. Reducing social, occupational, or recreational activities due to substance use [x] 8. Recurrent use of substance in physically hazardous situations [x] 9. Consistent use of substance despite recurrent physical or psychological difficulties [x] 10. Tolerance (increased amounts to achieve intoxication or diminished effect) [x] 11. Withdrawal syndrome or the substance is used to avoid withdrawal [x] 2-3 = mild; 4-5 = moderate; 6 or >6 = severe substance use disorder Remaining History Past Medical History: Diagnosis Date Alcohol abuse Alcohol dependence with withdrawal (HCC) 08/31/2019 Alcohol intoxication without use disorder, uncomplicated (HCC) 10/01/2019 Alcohol withdrawal, uncomplicated (HCC) 08/31/2019 Alcohol withdrawal, with unspecified complication (HCC) 10/02/2019 Alcohol withdrawal, with unspecified complication (HCC) 10/02/2019 Alcoholism (CMS/HCC) (HCC) Anxiety Cerebral artery occlusion with cerebral infarction (HCC) Cerebrovascular disease Depression Hypertension Insomnia Past Surgical History: Procedure Laterality Date COLONOSCOPY 06/10/2020 EGD/Dr Madison/B CYST REMOVAL face EGD (HISTORICAL) 07/23/2022 Dr. Estrella-[facility]OS[facility] 09/27/2021 normal WISDOM TOOTH EXTRACTION Family History Problem Relation Name Age of Onset Depression Sister Cancer Mother colon rectal cancer; dx after age 50 Other (45937) Mother alcoholism Other ([id number]) Father h/o rheumatic fever, cardiac arrest due to bee sting Other (45205) Sister agoraphobia Social History Socioeconomic History Marital status: Spouse name: Not on file Number of children: Not on file Years of education: Not on file Highest education level: Not on file Occupational History Not on file Tobacco Use Smoking status: Every Day Packs/day: 2.00 Types: Cigarettes Smokeless tobacco: Never Vaping Use Vaping Use: Never used Substance and Sexual Activity Alcohol use: Yes Comment: beer 8 cans / day Drug use: No Sexual activity: Not on file Comment: live with Other Topics Concern Not on file Social History Narrative Not on file Social Determinants of Health Financial Resource Strain: Not on file Food Insecurity: Not on file Transportation Needs: Not on file Physical Activity: Not on file Stress: Not on file Social Connections: Not on file Intimate Partner Violence: Not At Risk Fear of Current or Ex-Partner: No Emotionally Abused: No Physically Abused: No Sexually Abused: No Housing Stability: Not on file Allergies: Bee venom, Nickel, and Tramadol Review of Systems . Denies suicidal or homicidal ideation denies tactile auditory or visual hallucinations All of systems ROS was completed and was negative unless stated above Physical Exam Vitals: 07/23/22 0949 07/23/22 0957 07/23/22 1007 07/23/22 1017 BP: 105/60 (!) 130/91 134/64 (!) 136/94 BP Location: Patient Position: Pulse: 100 108 104 110 Resp: 26 18 18 18 Temp: 36.9 C (98.4 F) 37.7 C (99.8 F) TempSrc: Oral Temporal SpO2: 97% 94% 96% 96% Weight: Height: General appearance: Cooperative, no distress, appears stated age, non-toxic. Skin: Skin color, temperature, turgor normal. No rashes or lesions. Gastrointestinal: Soft, non-tender. Bowel sounds normal. No masses, no organomegaly. Neurologic: CN II-XII grossly intact. Normal sensation. Normal symmetric reflexes. Normal coordination and gait. Musculoskeletal: Normal muscle strength and tone in 4 distal extremities. Normal range of motion in 4 distal extremities. Psychiatric: Alert and oriented to person, place, and time. Insight: poor. Judgment: poor. Diaphoresis: 1/10 Restlessness: 1/10 Palmar Erythema 1/10 Tongue Fasciculations: 1/10 Extremity Tremors: 1/10 Imaging/Labs/Meds @RISRSLT@ Recent Results (from the past 48 hour(s)) CBC auto differential Collection Time: 07/21/22 4:42 PM Result Value Ref Range Auto WBC 6.2 3.6 - 10.7 10*3/uL RBC 4.77 4.40 - 5.90 10*6/uL Hemoglobin 16.0 13.0 - 18.0 g/dL Hematocrit 46.9 40.0 - 52.0 % MCV 98.4 (H) 80.0 - 98.0 fL MCH 33.5 26.0 - 34.0 pg MCHC 34.1 32.0 - 36.0 % RDW 15.4 (H) 11.5 - 14.5 % Platelets 211 140 - 440 10*3/uL MPV 6.8 (L) 7.4 - 12.4 fL nRBC 0.1 0.0 - 2.0 /100 WBCs Neutrophils Relative 56.7 40.0 - 80.0 % Lymphocytes Relative 31.1 20.0 - 40.0 % Monocytes Relative 9.8 2.0 - 10.0 % Eosinophils Relative 1.2 1.0 - 6.0 % Basophils Relative 1.2 0.0 - 2.0 % Neutrophils Absolute 3.5 1.8 - 7.0 10*3/uL Lymphocytes Absolute 1.9 1.0 - 4.3 10*3/uL Monocytes Absolute 0.6 0.0 - 0.8 10*3/uL Eosinophils Absolute 0.1 0.0 - 0.5 10*3/uL Basophils Absolute 0.1 0.0 - 0.2 10*3/uL Comprehensive metabolic panel Collection Time: 07/21/22 4:42 PM Result Value Ref Range SODIUM 136 135 - 145 mmol/L POTASSIUM 4.1 3.5 - 5.1 mmol/L CHLORIDE 101 98 - 107 mmol/L CARBON DIOXIDE 24 22 - 30 mmol/L ANION GAP 11 3 - 13 mmol/L UREA NITROGEN 8 (L) 9 - 20 mg/dL CREATININE 0.85 0.66 - 1.25 mg/dL GLUCOSE 98 70 - 100 mg/dL CALCIUM 8.5 8.4 - 10.4 mg/dL AST (SGOT) 56 (H) 15 - 46 U/L ALT 43 0 - 49 U/L ALKALINE PHOSPHATASE 124 38 - 126 U/L ALBUMIN 4.2 3.5 - 5.0 g/dL BILIRUBIN, TOTAL 0.5 0.2 - 1.3 mg/dL TOTAL PROTEIN 7.4 6.3 - 8.2 g/dL eGFR >90.0 >60.0 mL/min/1.73m*2 Lipase Collection Time: 07/21/22 4:42 PM Result Value Ref Range LIPASE 209 23 - 300 U/L Troponin I Collection Time: 07/21/22 4:42 PM Result Value Ref Range TROPONIN I <0.012 0.000 - 0.034 ng/mL Ethanol Collection Time: 07/21/22 4:42 PM Result Value Ref Range ETHANOL IN SER/PLAS 0.323 (HH) 0.000 - 0.010 g/dL Type and screen Collection Time: 07/21/22 4:42 PM Result Value Ref Range ABO Grouping A Antibody Screen NEG Rh Type POS Protime-INR Collection Time: 07/21/22 4:42 PM Result Value Ref Range PROTHROMBIN TIME 10.3 9.0 - 12.0 s INR 0.9 0.9 - 1.1 Magnesium Collection Time: 07/21/22 4:42 PM Result Value Ref Range MAGNESIUM 2.1 1.6 - 2.3 mg/dL Phosphorus Collection Time: 07/21/22 4:42 PM Result Value Ref Range PHOSPHORUS 4.6 (H) 2.5 - 4.5 mg/dL TSH Collection Time: 07/21/22 4:42 PM Result Value Ref Range THYROID STIMULATING HORMONE 2.092 0.465 - 4.680 uIU/mL Vitamin B12 Collection Time: 07/21/22 4:42 PM Result Value Ref Range VITAMIN B12 264 239 - 931 pg/mL SARS-CoV-2, Flu A/B, and RSV Combo Collection Time: 07/21/22 4:43 PM Specimen: Nasopharynx; Swab Result Value Ref Range SARS-CoV-2 Not Detected Not Detected Respiratory Syncytial Virus Not Detected Not Detected Influenza A Not Detected Not Detected Influenza B Not Detected Not Detected Drug screen panel, emergency Collection Time: 07/21/22 4:53 PM Result Value Ref Range AMPHETAMINE SCREEN Negative BARBITURATES SCREEN Negative BENZODIAZEPINE SCREEN Negative COCAINE METAB. SCREEN Negative METHADONE SCREEN Negative OPIATES SCREEN Negative OXYCODONE SCREEN Negative PHENCYCLIDINE SCREEN Negative Complete Urinalysis Collection Time: 07/21/22 4:53 PM Result Value Ref Range Color, Urine Colorless Lt. Yellow Clarity, Urine Clear Clear pH, Urine 5.0 5.0 - 8.0 pH Leukocytes, Urine Negative Negative Estefani/uL Nitrite, Urine Negative Negative Protein, Urine Negative Negative mg/dL Glucose, Urine Normal Normal (<70) mg/dL Bilirubin, Urine Negative Negative mg/dL Ketones, Urine Negative Negative mg/dL Urobilinogen, Urine Normal Normal (0-1) mg/dL Blood, Urine Negative Negative mg/dL SPECIFIC GRAVITY OF URINE (NUMERIC) 1.003 (L) 1.005 - 1.030 ECG 12 lead Collection Time: 07/21/22 5:07 PM Result Value Ref Range Heart Rate 95 bpm QRSD Interval 94 ms QT Interval 372 ms QTC Interval 468 ms P [place] 50 degrees QRS [place] 44 degrees T Wave [place] 50 degrees VA Interval 188 ms CBC Collection Time: 07/22/22 1:24 AM Result Value Ref Range Auto WBC 5.7 3.6 - 10.7 10*3/uL RBC 4.77 4.40 - 5.90 10*6/uL Hemoglobin 15.6 13.0 - 18.0 g/dL Hematocrit 47.1 40.0 - 52.0 % MCV 98.7 (H) 80.0 - 98.0 fL MCH 32.8 26.0 - 34.0 pg MCHC 33.2 32.0 - 36.0 % RDW 15.5 (H) 11.5 - 14.5 % Platelets 201 140 - 440 10*3/uL MPV 6.8 (L) 7.4 - 12.4 fL Comprehensive metabolic panel Collection Time: 07/22/22 5:30 AM Result Value Ref Range SODIUM 133 (L) 135 - 145 mmol/L POTASSIUM 4.0 3.5 - 5.1 mmol/L CHLORIDE 100 98 - 107 mmol/L CARBON DIOXIDE 26 22 - 30 mmol/L ANION GAP 7 3 - 13 mmol/L UREA NITROGEN 11 9 - 20 mg/dL CREATININE 0.85 0.66 - 1.25 mg/dL GLUCOSE 97 70 - 100 mg/dL CALCIUM 8.0 (L) 8.4 - 10.4 mg/dL AST (SGOT) 49 (H) 15 - 46 U/L ALT 43 0 - 49 U/L ALKALINE PHOSPHATASE 122 38 - 126 U/L ALBUMIN 4.1 3.5 - 5.0 g/dL BILIRUBIN, TOTAL 0.6 0.2 - 1.3 mg/dL TOTAL PROTEIN 7.3 6.3 - 8.2 g/dL eGFR >90.0 >60.0 mL/min/1.73m*2 CBC Collection Time: 07/23/22 2:24 AM Result Value Ref Range Auto WBC 5.8 3.6 - 10.7 10*3/uL RBC 4.78 4.40 - 5.90 10*6/uL Hemoglobin 15.9 13.0 - 18.0 g/dL Hematocrit 46.9 40.0 - 52.0 % MCV 98.1 (H) 80.0 - 98.0 fL MCH 33.3 26.0 - 34.0 pg MCHC 34.0 32.0 - 36.0 % RDW 14.9 (H) 11.5 - 14.5 % Platelets 198 140 - 440 10*3/uL MPV 6.9 (L) 7.4 - 12.4 fL Comprehensive metabolic panel Collection Time: 07/23/22 2:24 AM Result Value Ref Range SODIUM 132 (L) 135 - 145 mmol/L POTASSIUM 4.0 3.5 - 5.1 mmol/L CHLORIDE 95 (L) 98 - 107 mmol/L CARBON DIOXIDE 36 (H) 22 - 30 mmol/L ANION GAP 1 (L) 3 - 13 mmol/L UREA NITROGEN 10 9 - 20 mg/dL CREATININE 0.77 0.66 - 1.25 mg/dL GLUCOSE 98 70 - 100 mg/dL CALCIUM 8.6 8.4 - 10.4 mg/dL AST (SGOT) 40 15 - 46 U/L ALT 36 0 - 49 U/L ALKALINE PHOSPHATASE 126 38 - 126 U/L ALBUMIN 4.2 3.5 - 5.0 g/dL BILIRUBIN, TOTAL 1.0 0.2 - 1.3 mg/dL TOTAL PROTEIN 7.5 6.3 - 8.2 g/dL eGFR >90.0 >60.0 mL/min/1.73m*2 folic acid, 1 mg, Oral, Daily gabapentin, 600 mg, Oral, TID pantoprazole, 40 mg, IntraVENous, 2 times per day Thiamine Mononitrate, 100 mg, Oral, Daily PRN medications: albuterol, LORazepam OR LORazepam OR LORazepam OR LORazepam OR LORazepam OR LORazepam OR LORazepam OR LORazepam, ondansetron ODT OR ondansetron, polyethylene glycol (PEG) 3350 @[id number]@ Plan 1. 1. Alcohol use disorder severe with withdrawals Day # 2 of no use [place] q 6 hours Thiamine and folate supplement daily The patient will be detoxified with phenobarb and prn medications for symptomology. This dose will be tapered according to clinical signs and symptoms. Estimate will need 3-4 extra days of detox The patient will be discharged when stable with an active plan of recovery. Counseled about the hazardous impact of aclohol on the patient health Remaining medical management per primary team. Will follow. After counseling the patient about his alcohol use disorder and the dangers of detoxing at home he still insisted on leaving AGAINST MEDICAL ADVICE saying [facility] again I emphasized on the importance of supervised detox as this can be life-threatening and he verbalized understanding ISAAC MANN MD, MD Addiction Medicine 07/23/2022 at 12:35 PM I spent total time 75 minutes counseling, coordinating care and provided discussion regarding this patient's chemical dependency, psychiatric and medical history, reviewing past detoxification hospitalizations, assessing withdrawal status, evaluating detoxification medications, and discussing treatment plan. [employer] Phone: 07-23-2022 Consult note Associated Order (s): IP CONSULT TO ADDICTION MEDICINE [facility] Consult service H&P Admit Date: 07/21/2022 Primary Care Physician: Lynda Rasheed MD ] Chief Complaint Patient presents with Alcohol Problem Pt states that he is a daily drinker, usually 8-9 tall boys a day. Pt has been vomiting x1 week and states he has been getting intoxicated from drinking but is not keeping down what he normally would. 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 Also reports BRB in his vomit. Substance dependence disorder History of Present Illness Maria De Jesus Hogan is a 56 y.o. year old male with 30+ years of alcohol use disorder Patient states that he drinks 6 of the 12 ounce beers daily last drink was 2 days ago Patient denies any other drug use Longest sober is couple of months Patient denies any history of seizures Denies any history of DTs Has occasional blackouts He denies any legal issues He denies any overdoses or IV drug use The patient denies any history of psych hospitalization Denies any suicidal homicidal ideation currently remotely Denies any childhood trauma or PTSD Denies any psych diagnoses Patient says his last drink was 2 days ago he presented to the emergency department with alcohol level of 0.323 His urine drug screen was negative Substance Use Disorder Criteria 1. Taking substance in larger amounts and/or for longer than intended [x] 2. Wanting to cut down or quit substance use but not being able to [x] 3. Spending a lot of time obtaining the substance [x] 4. Craving or a strong desire to use substance [x] 5. Repeatedly doesn't carry out major obligations due to substance use [x] 6. Using despite recurring social or interpersonal problems caused by substance use [x] 7. Reducing social, occupational, or recreational activities due to substance use [x] 8. Recurrent use of substance in physically hazardous situations [x] 9. Consistent use of substance despite recurrent physical or psychological difficulties [x] 10. Tolerance (increased amounts to achieve intoxication or diminished effect) [x] 11. Withdrawal syndrome or the substance is used to avoid withdrawal [x] 2-3 = mild; 4-5 = moderate; 6 or >6 = severe substance use disorder Remaining History Past Medical History: Diagnosis Date Alcohol abuse Alcohol dependence with withdrawal (HCC) 08/31/2019 Alcohol intoxication without use disorder, uncomplicated (HCC) 10/01/2019 Alcohol withdrawal, uncomplicated (HCC) 08/31/2019 Alcohol withdrawal, with unspecified complication (HCC) 10/02/2019 Alcohol withdrawal, with unspecified complication (HCC) 10/02/2019 Alcoholism (CMS/HCC) (HCC) Anxiety Cerebral artery occlusion with cerebral infarction (HCC) Cerebrovascular disease Depression Hypertension Insomnia Past Surgical History: Procedure Laterality Date COLONOSCOPY 06/10/2020 EGD/Dr Madison/[facility] CYST REMOVAL face EGD (HISTORICAL) 07/23/2022 Dr. Estrella-[facility]OS[facility] 09/27/2021 normal WISDOM TOOTH EXTRACTION Family History Problem Relation Name Age of Onset Depression Sister Cancer Mother colon rectal cancer; dx after age 50 Other (33508) Mother alcoholism Other (47687) Father h/o rheumatic fever, cardiac arrest due to bee sting Other (01446) Sister agoraphobia Social History Socioeconomic History Marital status: Spouse name: Not on file Number of children: Not on file Years of education: Not on file Highest education level: Not on file Occupational History Not on file Tobacco Use Smoking status: Every Day Packs/day: 2.00 Types: Cigarettes Smokeless tobacco: Never Vaping Use Vaping Use: Never used Substance and Sexual Activity Alcohol use: Yes Comment: beer 8 cans / day Drug use: No Sexual activity: Not on file Comment: live with Other Topics Concern Not on file Social History Narrative Not on file Social Determinants of Health Financial Resource Strain: Not on file Food Insecurity: Not on file Transportation Needs: Not on file Physical Activity: Not on file Stress: Not on file Social Connections: Not on file Intimate Partner Violence: Not At Risk Fear of Current or Ex-Partner: No Emotionally Abused: No Physically Abused: No Sexually Abused: No Housing Stability: Not on file Allergies: Bee venom, Nickel, and Tramadol Review of Systems . Denies suicidal or homicidal ideation denies tactile auditory or visual hallucinations All of systems ROS was completed and was negative unless stated above Physical Exam Vitals: 07/23/22 0949 07/23/22 0957 07/23/22 1007 07/23/22 1017 BP: 105/60 (!) 130/91 134/64 (!) 136/94 BP Location: Patient Position: Pulse: 100 108 104 110 Resp: 26 18 18 18 Temp: 36.9 C (98.4 F) 37.7 C (99.8 F) TempSrc: Oral Temporal SpO2: 97% 94% 96% 96% Weight: Height: General appearance: Cooperative, no distress, appears stated age, non-toxic. Skin: Skin color, temperature, turgor normal. No rashes or lesions. Gastrointestinal: Soft, non-tender. Bowel sounds normal. No masses, no organomegaly. Neurologic: CN II-XII grossly intact. Normal sensation. Normal symmetric reflexes. Normal coordination and gait. Musculoskeletal: Normal muscle strength and tone in 4 distal extremities. Normal range of motion in 4 distal extremities. Psychiatric: Alert and oriented to person, place, and time. Insight: poor. Judgment: poor. Diaphoresis: 1/10 Restlessness: 10 Palmar Erythema / Tongue Fasciculations: / Extremity Tremors: 04/10 Imaging/Labs/Meds @RISRSLT@ Recent Results (from the past 48 hour(s)) CBC auto differential Collection Time: 07/21/22 4:42 PM Result Value Ref Range Auto WBC 6.2 3.6 - 10.7 10*3/uL RBC 4.77 4.40 - 5.90 10*6/uL Hemoglobin 16.0 13.0 - 18.0 g/dL Hematocrit 46.9 40.0 - 52.0 % MCV 98.4 (H) 80.0 - 98.0 fL MCH 33.5 26.0 - 34.0 pg MCHC 34.1 32.0 - 36.0 % RDW 15.4 (H) 11.5 - 14.5 % Platelets 211 140 - 440 10*3/uL MPV 6.8 (L) 7.4 - 12.4 fL nRBC 0.1 0.0 - 2.0 /100 WBCs Neutrophils Relative 56.7 40.0 - 80.0 % Lymphocytes Relative 31.1 20.0 - 40.0 % Monocytes Relative 9.8 2.0 - 10.0 % Eosinophils Relative 1.2 1.0 - 6.0 % Basophils Relative 1.2 0.0 - 2.0 % Neutrophils Absolute 3.5 1.8 - 7.0 10*3/uL Lymphocytes Absolute 1.9 1.0 - 4.3 10*3/uL Monocytes Absolute 0.6 0.0 - 0.8 10*3/uL Eosinophils Absolute 0.1 0.0 - 0.5 10*3/uL Basophils Absolute 0.1 0.0 - 0.2 10*3/uL Comprehensive metabolic panel Collection Time: 07/21/22 4:42 PM Result Value Ref Range SODIUM 136 135 - 145 mmol/L POTASSIUM 4.1 3.5 - 5.1 mmol/L CHLORIDE 101 98 - 107 mmol/L CARBON DIOXIDE 24 22 - 30 mmol/L ANION GAP 11 3 - 13 mmol/L UREA NITROGEN 8 (L) 9 - 20 mg/dL CREATININE 0.85 0.66 - 1.25 mg/dL GLUCOSE 98 70 - 100 mg/dL CALCIUM 8.5 8.4 - 10.4 mg/dL AST (SGOT) 56 (H) 15 - 46 U/L ALT 43 0 - 49 U/L ALKALINE PHOSPHATASE 124 38 - 126 U/L ALBUMIN 4.2 3.5 - 5.0 g/dL BILIRUBIN, TOTAL 0.5 0.2 - 1.3 mg/dL TOTAL PROTEIN 7.4 6.3 - 8.2 g/dL eGFR >90.0 >60.0 mL/min/1.73m*2 Lipase Collection Time: 07/21/22 4:42 PM Result Value Ref Range LIPASE 209 23 - 300 U/L Troponin I Collection Time: 07/21/22 4:42 PM Result Value Ref Range TROPONIN I <0.012 0.000 - 0.034 ng/mL Ethanol Collection Time: 07/21/22 4:42 PM Result Value Ref Range ETHANOL IN SER/PLAS 0.323 (HH) 0.000 - 0.010 g/dL Type and screen Collection Time: 07/21/22 4:42 PM Result Value Ref Range ABO Grouping A Antibody Screen NEG Rh Type POS Protime-INR Collection Time: 07/21/22 4:42 PM Result Value Ref Range PROTHROMBIN TIME 10.3 9.0 - 12.0 s INR 0.9 0.9 - 1.1 Magnesium Collection Time: 07/21/22 4:42 PM Result Value Ref Range MAGNESIUM 2.1 1.6 - 2.3 mg/dL Phosphorus Collection Time: 07/21/22 4:42 PM Result Value Ref Range PHOSPHORUS 4.6 (H) 2.5 - 4.5 mg/dL TSH Collection Time: 07/21/22 4:42 PM Result Value Ref Range THYROID STIMULATING HORMONE 2.092 0.465 - 4.680 uIU/mL Vitamin B12 Collection Time: 07/21/22 4:42 PM Result Value Ref Range VITAMIN B12 264 239 - 931 pg/mL SARS-CoV-2, Flu A/B, and RSV Combo Collection Time: 07/21/22 4:43 PM Specimen: Nasopharynx; Swab Result Value Ref Range SARS-CoV-2 Not Detected Not Detected Respiratory Syncytial Virus Not Detected Not Detected Influenza A Not Detected Not Detected Influenza B Not Detected Not Detected Drug screen panel, emergency Collection Time: 07/21/22 4:53 PM Result Value Ref Range AMPHETAMINE SCREEN Negative BARBITURATES SCREEN Negative BENZODIAZEPINE SCREEN Negative COCAINE METAB. SCREEN Negative METHADONE SCREEN Negative OPIATES SCREEN Negative OXYCODONE SCREEN Negative PHENCYCLIDINE SCREEN Negative Complete Urinalysis Collection Time: 07/21/22 4:53 PM Result Value Ref Range Color, Urine Colorless Lt. Yellow Clarity, Urine Clear Clear pH, Urine 5.0 5.0 - 8.0 pH Leukocytes, Urine Negative Negative Estefani/uL Nitrite, Urine Negative Negative Protein, Urine Negative Negative mg/dL Glucose, Urine Normal Normal (<70) mg/dL Bilirubin, Urine Negative Negative mg/dL Ketones, Urine Negative Negative mg/dL Urobilinogen, Urine Normal Normal (0-1) mg/dL Blood, Urine Negative Negative mg/dL SPECIFIC GRAVITY OF URINE (NUMERIC) 1.003 (L) 1.005 - 1.030 ECG 12 lead Collection Time: 07/21/22 5:07 PM Result Value Ref Range Heart Rate 95 bpm QRSD Interval 94 ms QT Interval 372 ms QTC Interval 468 ms P [place] 50 degrees QRS [place] 44 degrees T Wave [place] 50 degrees VA Interval 188 ms CBC Collection Time: 07/22/22 1:24 AM Result Value Ref Range Auto WBC 5.7 3.6 - 10.7 10*3/uL RBC 4.77 4.40 - 5.90 10*6/uL Hemoglobin 15.6 13.0 - 18.0 g/dL Hematocrit 47.1 40.0 - 52.0 % MCV 98.7 (H) 80.0 - 98.0 fL MCH 32.8 26.0 - 34.0 pg MCHC 33.2 32.0 - 36.0 % RDW 15.5 (H) 11.5 - 14.5 % Platelets 201 140 - 440 10*3/uL MPV 6.8 (L) 7.4 - 12.4 fL Comprehensive metabolic panel Collection Time: 07/22/22 5:30 AM Result Value Ref Range SODIUM 133 (L) 135 - 145 mmol/L POTASSIUM 4.0 3.5 - 5.1 mmol/L CHLORIDE 100 98 - 107 mmol/L CARBON DIOXIDE 26 22 - 30 mmol/L ANION GAP 7 3 - 13 mmol/L UREA NITROGEN 11 9 - 20 mg/dL CREATININE 0.85 0.66 - 1.25 mg/dL GLUCOSE 97 70 - 100 mg/dL CALCIUM 8.0 (L) 8.4 - 10.4 mg/dL AST (SGOT) 49 (H) 15 - 46 U/L ALT 43 0 - 49 U/L ALKALINE PHOSPHATASE 122 38 - 126 U/L ALBUMIN 4.1 3.5 - 5.0 g/dL BILIRUBIN, TOTAL 0.6 0.2 - 1.3 mg/dL TOTAL PROTEIN 7.3 6.3 - 8.2 g/dL eGFR >90.0 >60.0 mL/min/1.73m*2 CBC Collection Time: 07/23/22 2:24 AM Result Value Ref Range Auto WBC 5.8 3.6 - 10.7 10*3/uL RBC 4.78 4.40 - 5.90 10*6/uL Hemoglobin 15.9 13.0 - 18.0 g/dL Hematocrit 46.9 40.0 - 52.0 % MCV 98.1 (H) 80.0 - 98.0 fL MCH 33.3 26.0 - 34.0 pg MCHC 34.0 32.0 - 36.0 % RDW 14.9 (H) 11.5 - 14.5 % Platelets 198 140 - 440 10*3/uL MPV 6.9 (L) 7.4 - 12.4 fL Comprehensive metabolic panel Collection Time: 07/23/22 2:24 AM Result Value Ref Range SODIUM 132 (L) 135 - 145 mmol/L POTASSIUM 4.0 3.5 - 5.1 mmol/L CHLORIDE 95 (L) 98 - 107 mmol/L CARBON DIOXIDE 36 (H) 22 - 30 mmol/L ANION GAP 1 (L) 3 - 13 mmol/L UREA NITROGEN 10 9 - 20 mg/dL CREATININE 0.77 0.66 - 1.25 mg/dL GLUCOSE 98 70 - 100 mg/dL CALCIUM 8.6 8.4 - 10.4 mg/dL AST (SGOT) 40 15 - 46 U/L ALT 36 0 - 49 U/L ALKALINE PHOSPHATASE 126 38 - 126 U/L ALBUMIN 4.2 3.5 - 5.0 g/dL BILIRUBIN, TOTAL 1.0 0.2 - 1.3 mg/dL TOTAL PROTEIN 7.5 6.3 - 8.2 g/dL eGFR >90.0 >60.0 mL/min/1.73m*2 folic acid, 1 mg, Oral, Daily gabapentin, 600 mg, Oral, TID pantoprazole, 40 mg, IntraVENous, 2 times per day Thiamine Mononitrate, 100 mg, Oral, Daily PRN medications: albuterol, LORazepam OR LORazepam OR LORazepam OR LORazepam OR LORazepam OR LORazepam OR LORazepam OR LORazepam, ondansetron ODT OR ondansetron, polyethylene glycol (PEG) 3350 @[id number]@ Plan 1. 1. Alcohol use disorder severe with withdrawals Day # 2 of no use Ciwa q 6 hours Thiamine and folate supplement daily The patient will be detoxified with phenobarb and prn medications for symptomology. This dose will be tapered according to clinical signs and symptoms. Estimate will need 3-4 extra days of detox The patient will be discharged when stable with an active plan of recovery. Counseled about the hazardous impact of aclohol on the patient health Remaining medical management per primary team. Will follow. After counseling the patient about his alcohol use disorder and the dangers of detoxing at home he still insisted on leaving AGAINST MEDICAL ADVICE saying that [facility] and they going to detox him there again I emphasized on the importance of supervised detox as this can be life-threatening and he verbalized understanding ISAAC MANN MD, MD Addiction Medicine 07/23/2022 at 12:35 PM I spent total time 75 minutes counseling, coordinating care and provided discussion regarding this patient's chemical dependency, psychiatric and medical history, reviewing past detoxification hospitalizations, assessing withdrawal status, evaluating detoxification medications, and discussing treatment plan. Associated Order(s): IP CONSULT TO GI Images from the original note were not included. GASTROENTEROLOGY CONSULTATION REASON FOR CONSULT: The patient was seen in consultation at the request of Dr. Teixeira re: Hematemesis HISTORY OF PRESENT ILLNESS: The patient is a 56 y.o. male with past medical history as listed below including history of chronic alcohol abuse who presents with hematemesis. The patient came to the ED requesting detox. Had a similar admission this past August 2021. EGD with Dr. Gotti with evidence of esophagitis and Lombardo's esophagus. No evidence of esophageal or gastric varices. Patient continues to drink heavily on a daily basis. Yesterday had a few episodes of nonbloody emesis followed by a small amount of hematemesis which she described as bright red in color. Currently tremulous and going through DTs requiring Ativan. Patient otherwise denies any further N/V, hematemesis since yesterday. Remains hemodynamically stable. No drop in hemoglobin. No associated fevers, chills or sweats. PAST MEDICAL HISTORY: Past Medical History: Diagnosis Date Alcohol abuse Alcohol dependence with withdrawal (HCC) 08/31/2019 Alcohol intoxication without use disorder, uncomplicated (HCC) 10/01/2019 Alcohol withdrawal, uncomplicated (HCC) 08/31/2019 Alcohol withdrawal, with unspecified complication (HCC) 10/02/2019 Alcohol withdrawal, with unspecified complication (HCC) 10/02/2019 Alcoholism (CMS/HCC) (HCC) Anxiety Cerebral artery occlusion with cerebral infarction (CMS/HCC) (HCC) Cerebrovascular disease Depression Hypertension Insomnia PAST SURGICAL HISTORY: Past Surgical History: Procedure Laterality Date COLONOSCOPY 06/10/2020 EGD/Dr Madison/AMANDA CYST REMOVAL face UPPER GASTROINTESTINAL ENDOSCOPY 09/27/2021 normal WISDOM TOOTH EXTRACTION SOCIAL HISTORY: TOBACCO: Social History Tobacco Use Smoking Status Every Day Packs/day: 1.50 Types: Cigarettes Smokeless Tobacco Never ETOH: Alcohol Use: Heavy Drinker Frequency of Alcohol Consumption: 4 or more times a week Average Number of Drinks: 10 or more Frequency of Binge Drinking: Daily or almost daily DRUGS: Social History Substance and Sexual Activity Drug Use No FAMILY HISTORY: Family History Problem Relation Name Age of Onset Depression Sister Cancer Mother colon rectal cancer; dx after age 50 Other (57682) Mother alcoholism Other (71581) Father h/o rheumatic fever, cardiac arrest due to bee sting Other (39223) Sister agoraphobia MEDICATIONS PRIOR TO ADMISSION: Current Outpatient Medications Medication Instructions albuterol 108 (90 Base) MCG/ACT inhaler 2 puffs, Inhalation, Every 6 hours PRN calcipotriene (Dovonex) 0.005 % cream Topical, 2 times daily clobetasol (Temovate) 0.05 % cream Topical, 2 times daily gabapentin (NEURONTIN) 600 mg, Oral, 3 times daily melatonin 5 mg, Oral Multiple Vitamins tablet 1 tablet, Oral pantoprazole (PROTONIX) 40 mg, Oral, Daily before breakfast rosuvastatin (Crestor) 10 MG tablet No dose, route, or frequency recorded. CURRENT MEDICATIONS: Current Facility-Administered Medications: albuterol 108 (90 Base) MCG/ACT inhaler 2 puff, 2 puff, Inhalation, q6h PRN, Redd Teixeira MD folic acid (Folvite) tablet 1 mg, 1 mg, Oral, Daily, Redd Teixeira MD, 1 mg at 07/22/22 0838 gabapentin (Neurontin) tablet 600 mg, 600 mg, Oral, TID, Redd Teixeira MD, 600 mg at 07/22/22 0838 LORazepam (Ativan) tablet 1 mg, 1 mg, Oral, q1h PRN OR LORazepam (Ativan) injection 1 mg, 1 mg, IntraVENous, q1h PRN OR LORazepam (Ativan) tablet 2 mg, 2 mg, Oral, q1h PRN OR LORazepam (Ativan) injection 2 mg, 2 mg, IntraVENous, q1h PRN, 2 mg at 07/22/22 0856 OR LORazepam (Ativan) tablet 3 mg, 3 mg, Oral, q1h PRN OR LORazepam (Ativan) injection 3 mg, 3 mg, IntraVENous, q1h PRN, 3 mg at 07/21/222033 OR LORazepam (Ativan) tablet 4 mg, 4 mg, Oral, q1h PRN OR LORazepam (Ativan) injection 4 mg, 4 mg, IntraVENous, q1h PRN, Redd Teixeira MD, 4 mg at 07/22/22 0109 ondansetron ODT (Zofran-ODT) disintegrating tablet 4 mg, 4 mg, Oral, q8h PRN OR ondansetron (Zofran) injection 4 mg, 4 mg, IntraVENous, q6h PRN, Redd Teixeira MD pantoprazole (ProtoNix) injection 40 mg, 40 mg, IntraVENous, 2 times per day, Redd Teixeira MD polyethylene glycol (PEG) 3350 (Miralax) packet 17 g, 17 g, Oral, Daily PRN, Redd Teixeira MD Thiamine Mononitrate (Vitamin B1) tablet 100 mg, 100 mg, Oral, Daily, Redd Teixeira MD, 100 mg at 07/22/22 0838 ALLERGIES: Allergies Allergen Reactions Bee Venom Swelling Nickel Rash Tramadol Nausea And Vomiting Other reaction(s): AOF REVIEW OF SYMPTOMS: Ten-point review of symptoms was noted and reviewed in the chart. PHYSICAL EXAM VS:vBP 104/79 Pulse (!) 115 Temp 36.7 C (98 F) (Temporal) Resp 18 Ht 5' 10.98 (1.803 m) Wt 222 lb 10.6 oz (101 kg) SpO2 (!) 82% BMI 31.07 kg/m Body mass index is 31.07 kg/m . GENERAL: Tremulous, agitated, and NAD. HEENT: Scleral anicteric. Oropharhynx clear with no erythema or exudate. CV: RRR, NL S1/S2, no murmurs. LUNGS: CTA b/l. No W/R/R. ABDOMEN: ,soft, non-tender and non-distended, + BS. No hepatosplenomegaly. No mass felt. No rebound or guarding. No hernia. No stigmata of ESLD EXT: No C/C/E. SKIN: No obvious skin lesions or rashes MUSCULOSKELETALl: Strength 5/5 in all exts. NEURO: A&O x 3, No obvious focal deficits. LABS AND IMAGING: Recent blood work and relevant radiologic and endoscopic studies were reviewed and discussed with the patient. Results from last 7 days Lab Units 07/22/22 0124 07/21/22 1642 WBC AUTO 10*3/uL 5.7 6.2 HEMOGLOBIN g/dL 15.6 16.0 HEMATOCRIT % 47.1 46.9 PLATELETS AUTO 10*3/uL 201 211 Results from last 7 days Lab Units 07/22/22 0530 07/21/22 1642 SODIUM mmol/L 133* 136 POTASSIUM mmol/L 4.0 4.1 CHLORIDE mmol/L 100 101 CO2 mmol/L 26 24 BUN mg/dL 11 8* CREATININE mg/dL 0.85 0.85 CALCIUM mg/dL 8.0* 8.5 PROTEIN TOTAL g/dL 7.3 7.4 BILIRUBIN TOTAL mg/dL 0.6 0.5 ALK PHOS U/L 122 124 ALT U/L 43 43 AST U/L 49* 56* GLUCOSE mg/dL 97 98 Results from last 7 days Lab Units 07/21/22 1642 INR 0.9 IMAGING: Exam Date/Time: 07/21/2022 17:53 Procedure: CT ABDOMEN PELVIS W CONTRAST Ordering Provider: VILLALTA TYLER Reason For Exam: upper abd pain, hematemesis, eval for bleeding source, pancratitis CT ABDOMEN AND PELVIS WITH CONTRAST CLINICAL INDICATION: Upper abdominal pain and hematemesis.. TECHNIQUE: Multi-axial 3mm sections through the abdomen and pelvis following 75 mL of Isoview contrast media. No oral contrast was administered. Coronal and sagittal reconstructions were reviewed. Dose reduction was employed with automated exposure control. COMPARISON: 06/06/2021. FINDINGS: Lung bases: Normal. Liver: Liver is diffusely low in density consistent with fatty liver change. No focal lesion. Biliary tree: The gallbladder is unremarkable. No biliary dilatation. Spleen: Normal. Adrenals: Normal. Pancreas: Normal. Kidneys: Symmetric contrast enhancement without evidence of hydronephrosis. No focal renal lesion is identified. Free air or fluid: None. Mesenteric/retroperitoneal: No adenopathy or inflammation. Aorta: Atherosclerotic calcific aortic and iliac artery changes. Bowel: The appendix is not visualized and no pericecal inflammatory changes are evident.. No dilatation is noted. Sigmoid diverticulosis without evidence of acute diverticulitis. No definite evidence of pneumatosis coli. Abdominal wall: No ventral hernia is evident. Pelvic organs/viscera: No mass identified. Bladder is normally distended. No pelvic free fluid. Inguinal lymphadenopathy: None. Osseous structures: Lumbar degenerative spondylosis. IMPRESSION: No acute abdominal or pelvic findings to explain symptoms. Hepatic steatosis. Sigmoid diverticulosis. ASSESSMENT: Hematemesis: Likely secondary to M-W tear. Rule out esophagitis, gastritis, PUD. No evidence of varices on prior EGD. Alcohol use disorder Alcohol withdrawal PLAN: Plan for EGD in the a.m. We will need to reassess to see if he will tolerate anesthesia given his current withdrawal symptoms. WA protocol with close monitoring Addiction medicine evaluation PPI twice daily for now Monitor hemoglobin and transfuse as needed. The benefits, alternatives, and risks of the procedure(s) including (but not exclusive to) bleeding, perforation, infection, hypoxia/hypotension/allergic reaction(s) due to sedatives need for surgery, and likelihood of missing a lesion, were explained to the patient/guardian/responsible accompanying adult who is agreeable (Comment: Please note this report has been produced using speech recognition software and may contain errors related to that system including errors in grammar, punctuation, and spelling, as well as words and phrases that may be inappropriate. If there are any questions or concerns please feel free to contact the dictating provider for clarification.) Electronically signed by Jose Estrella DO 07/22/2022 10:49 AM documented in this encounter [facility] 07-23-2022 Hospital course Narrative Discharge Summary Maria De Jesus Hogan : 1965 ADMIT DATE: 07/21/2022 DISCHARGE DATE: 07/23/2022 PRIMARY CARE PHYSICIAN: Lynda Rasheed VISIT STATUS: Admission CODE STATUS: Full Code DISCHARGE DIAGNOSES: Principal Problem: Hematemesis with nausea Alcoholism/elevated blood alcohol levels of 0.3. Hematemesis/upper GI bleed. 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 DTs. Gastroesophageal reflux disease. Neuropathy. Life-threatening noncompliance to medications/leaving AGAINST MEDICAL ADVICE. HOSPITAL COURSE: Initially patient got admitted to hospital as he was requesting for detox from alcohol also complaining of hematemesis, GI was consulted EGD was done, the demonstrated Lombardo's esophagus, recommended to continue Protonix. Still patient is at high risk for alcohol withdrawals with seizures given history of severe alcoholism, addiction medicine came and evaluated the patient. Plan is to continue CIWA protocol. But patient was adamant leaving AGAINST MEDICAL ADVICE. Despite of explaining the risks, he decided to leave the hospital. AMA papers were signed. CONSULTANTS: Addiction medicine DISPOSITION: AMA Follow up with Lynda Rasheed MD [address] [place] [address] INSTRUCTIONS TO MA/SW: Please call patient on day after discharge (must document patient contacted within 2 business days of discharge). FOLLOW UP QUESTIONS FOR MA/SW: 1. Did you get medications filled and taking them as instructed from discharge? 2. Are you following your discharge instructions from your hospital stay? 3. Please confirm patient is scheduled for a follow up appointment within the above time frame. DISCHARGE TIME: > 30 minutes SIGNED: Redd Teixeira MD 07/23/2022, 12:20 PM documented in this encounter [facility] 07-23-2022 History of Present illness Narrative Patient discussed leaving AMA with Dr. Teixeira and addiction medicine. AMA paperwork signed and witnessed. Nutrition rescreen completed. Patient assigned a level 1. Awake. Pulse ox 96% on 6L, decreased to 5L, then to 4L. Pulse ox now 93% 4L. Will moniter Sleeping soundly. Pulse ox dropping into mid 80's on 4L. O2 increase to 5L, then 6L, to get pulse ox to 92%. Pt arouses easily, but right back to sleep Pt appears to be sleeping soundly. Rouses with physical stimuli, disoriented but redirectable. PO 88% on 2L NC, back to 92-93% when prompted to deep breath. States, just let me sleep. Will cont to monitor Images from the original note were not included. Hospitalist Progress Note 07/22/2022 [phone]: Please secure chat me for patient care issues. [phone]: Please secure chat [facility] [place] for any issues. Subjective: Admit Date: 07/21/2022 PCP: Lynda Rasheed MD Room#: B2-256/B2-256 A Interval History: Patient is sleeping comfortably, wakes up when called his name, no signs of agitation or anxiety. As per the patient he drinks 9 bottles of 24 ounce beers every day, last drink on 07/21 evening. So far no signs of withdrawals, continue close monitor. No signs of bleeding. Requesting to advance the diet. Adult diet Full liquid @[id number]@ 24HR INTAKE/OUTPUT: Intake/Output Summary (Last 24 hours) at 07/22/2022 1040 Last data filed at 07/22/2022 0856 Gross per 24 hour Intake 100 ml Output -- Net 100 ml Past Medical History: Past Medical History: Diagnosis Date Alcohol abuse Alcohol dependence with withdrawal (HCC) 08/31/2019 Alcohol intoxication without use disorder, uncomplicated (HCC) 10/01/2019 Alcohol withdrawal, uncomplicated (HCC) 08/31/2019 Alcohol withdrawal, with unspecified complication (HCC) 10/02/2019 Alcohol withdrawal, with unspecified complication (HCC) 10/02/2019 Alcoholism (CMS/HCC) (HCC) Anxiety Cerebral artery occlusion with cerebral infarction (CMS/HCC) (HCC) Cerebrovascular disease Depression Hypertension Insomnia LABS: CBC: Recent Labs 07/21/22 1642 07/22/22 0124 WBC 6.2 5.7 RBC 4.77 4.77 HGB 16.0 15.6 HCT 46.9 47.1 MCV 98.4* 98.7* RDW 15.4* 15.5* PLT 211 201 BMP: Recent Labs 07/21/22 1642 07/22/22 0530 NA 136 133* K 4.1 4.0 CL 101 100 CO2 24 26 BUN 8* 11 CREATININE 0.85 0.85 GLUCOSE 98 97 CALCIUM 8.5 8.0* ANIONGAP 11 7 LIVER PROFILE: Recent Labs 07/21/22 1642 07/22/22 0530 AST 56* 49* ALT 43 43 BILITOT 0.5 0.6 ALKPHOS 124 122 PROT 7.4 7.3 PT/INR: Recent Labs 07/21/221641 PROTIME 10.3 INR 0.9 CARDIAC ENZYMES: Recent Labs 07/21/221641 TROPONINI <0.012 Procalcitonin: No results found for: PROCAL COVID-19 PCR: No results for input(s): COVID19 in the last 72 hours. Objective: Vitals: BP 104/79 Pulse (!) 115 Temp 36.7 C (98 F) (Temporal) Resp 18 Ht 1.803 m (5' 10.98) Wt 101 kg (222 lb 10.6 oz) SpO2 (!) 82% BMI 31.07 kg/m Pulse Ox: SpO2 Av.4 % Min: 82 % Max: 96 % Physical Exam General: Alert, no distress Neck: Supple HEENT: Normocephalic, atraumatic, pupils equal react light Heart: S1-S2 heard, no murmurs gallops regurgitation Lungs: Clear to auscultation bilaterally no wheezing rales or rhonchi Abdomen: Nondistended, nontender, bowel sounds are present Extremities: No edema Neuro: No focal deficits Musculoskeletal: No obvious deformities Skin: Intact Medications: folic acid, 1 mg, Oral, Daily gabapentin, 600 mg, Oral, TID pantoprazole, 40 mg, IntraVENous, 2 times per day Thiamine Mononitrate, 100 mg, Oral, Daily Assessment Alcoholism/elevated blood alcohol levels of 0.3. Hematemesis/upper GI bleed. 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 DTs. Gastroesophageal reflux disease. Neuropathy. Life-threatening noncompliance to medications/leaving AGAINST MEDICAL ADVICE. Medical Decision Making Patient came to the emergency room requesting for detox, last alcohol drink few hours ago, blood alcohol levels significantly elevated at 0.3, no signs of withdrawals at this point in time. Also patient complaining of hematemesis, given his history of esophagitis and Lombardo's esophagus. Admitting patient for further management. Started patient on full liquids. Follow-up hemoglobin stable. No signs of obvious bleeding. Continue IV Protonix 40 twice daily. Follow-up on GI recommendations. Continue CIWA protocol. High risk for severe withdrawals, history of Dts-possibility of ICU transfer for Precedex drip, continue to monitor closely. Addiction medicine consulted. -am labs, replace lytes prn -increase activity -DVT prophylaxis: [] Lovenox [] Heparin [] SCDs [x] Encourage ambulation [] Already on Anticoagulation Anticipated Discharge - Date -2 to 3 days - Location -detox - Pending the following -addiction medicine Total time spent (which include face to face and non face to face encounters) : 25 minutes Toxic drug monitoring/narrow therapeutic index drug monitoring : # Drug name : # Route administered : # Method of monitoring : Extended Emergency Contact Information Primary Emergency Contact: [place] Relation: Spouse Redd Teixeira MD Division of Hospitalist Medicine [facility] PAGER: Epic chat AAOX3, responds appropriately but vague. Requesting liquids, pt taking sips with meds, no apparent swallowing deficit or dysphagia noted. Will cont to monitor. documented in this encounter [facility] 07-23-2022 Note Formatting of this n ote might be different from the original. POST ENDOSCOPY PROCEDURE TRANSFER REPORT Procedure completed: egd Findings:see op note Specimens obtained: no Medications administered: see emar Additional Info: see emar For additional Questions please call Endoscopy at [phone]. Thank You! [facility] 07-23-2022 Miscellaneous Notes POST ENDOSCOPY PROCEDURE TRANSFER REPORT Procedure completed: egd Findings:see op note Specimens obtained: no Medications administered: see emar Additional Info: see emar For additional Questions please call Endoscopy at [phone]. [facility] You[facility] Name: Maria De Jesus Hogan Procedure Date: 07/23/2022 9:24 AM Gender: Male Date of : 1965 Age: 56 Admit Type: Inpatient Note Status: Finalized Endoscopist: Jose Estrella DO, [id number] Procedure: Upper GI endoscopy Indications: Hematemesis Findings: There were esophageal mucosal changes secondary to established short-segment Lombardo's disease present in the distal esophagus. A few isolated islands present. The maximum longitudinal extent of these mucosal changes was 1 cm in length. Previously biopsied. Not biopsied A 2 cm hiatal hernia was present. The entire examined stomach, cardia (on retroflexion) and gastric fundus (on retroflexion) were normal. The duodenal bulb and second portion of the duodenum were normal. Impression: - Esophageal mucosal changes secondary to established short-segment Lombardo's disease. - 2 cm hiatal hernia. - Normal stomach, cardia and gastric fundus. - Normal duodenal bulb and second portion of the duodenum. - No specimens collected. Recommendation: - Resume previous diet. - Continue present medications. - Continue PPI daily - Will sign off. Call if can be of further assistance. Medicines: Monitored Anesthesia Care, See the Anesthesia note for documentation of the administered medications Procedure: Pre-Anesthesia Assessment: - Prior to the procedure, a History and Physical was performed, and patient medications and allergies were reviewed. The patient's tolerance of previous anesthesia was also reviewed. The risks and benefits of the procedure and the sedation options and risks were discussed with the patient. All questions were answered, and informed consent was obtained. Prior Anticoagulants: The patient has taken no anticoagulant or antiplatelet agents. ASA Grade Assessment: III - A patient with severe systemic disease. After reviewing the risks and benefits, the patient was deemed in satisfactory condition to undergo the procedure. After obtaining informed consent, the endoscope was passed under direct vision. Throughout the procedure, the patient's blood pressure, pulse, and oxygen saturations were monitored continuously. The Endoscope was introduced through the mouth, and advanced to the second part of duodenum. The upper GI endoscopy was accomplished without difficulty. The patient tolerated the procedure well. Complications: No immediate complications. Procedure Code(s): --- Professional --- 97839, Esophagogastroduodenoscopy, flexible, transoral; diagnostic, including collection of specimen(s) by brushing or washing, when performed (separate procedure) --- Technical --- 58882, Esophagogastroduodenoscopy, flexible, transoral; diagnostic, including collection of specimen(s) by brushing or washing, when performed (separate procedure) Diagnosis Code(s): --- Professional --- K22.70, Lombardo's esophagus without dysplasia K44.9, Diaphragmatic hernia without obstruction or gangrene K92.0, Hematemesis --- Technical --- K22.70, Lombardo's esophagus without dysplasia K44.9, Diaphragmatic hernia without obstruction or gangrene K92.0, Hematemesis CPT copyright 2021 [employer]. All rights reserved. The codes documented in this report are preliminary and upon health information coder review may be revised to meet current compliance requirements. Attending Participation: I personally performed the entire procedure. Jose Estrella DO 07/23/2022 9:53:58 AM This report has been signed electronically. Number of Addenda: 0 Note Initiated On: 07/23/2022 9:24 AM Care Managment Initial Assessment Date: 07/22/2022 Patient Name: Maria De Jesus Hogan : 1965 Patient Information Source of Information: Patient, Patient Inhalation Therapist Name/Contact Information: JUDY SAMIRA [phone] SPOUSE Cognition/Language: WFL - Within Functional Limits Permission given to speak with patient sales and service representative/caregiver as indicated: Yes Confirmation of Payer with patient/family: Yes Payer Name: [place] [employer] Union: No Confirmation of Primary Care Physician: Confirmed PCP Name: DR. RASHEED Seen in last 2 years?: Yes Primary Caregiver: Self If assistance needed, confirmed caregiver ready, willing and able to care for patient at discharge: Confirmed with: Living Arrangements Current Residence: House Number of Floors 2 Number of Entry Steps: 3 Bed/Bath Levels: Separate floors Facility: Facility Name: NA Plan to Return: Yes Lives with: Spouse/significant other, Children (SPOUSE AND STEP KIDS AGES 16 AND 24) Support Systems: Spouse/significant other, Children Activities of Daily Living Ambulation: Independent Bathing/Dressing: Independent Elimination/Continence/Toileting: Independent Feeding: Independent Who Assists with Activities of Daily Living: NA Instrumental Activities of Daily Living Prescription Coverage: Yes [facility]acy Used: [facility] Medication Management: Independent Transportation/Shopping: Independent Transportation Mode: Car Needs Assistance with Transportation at Discharge: No (SPOUSE) Meal Preparation: Independent Laundry/Cleaning: Independent Finances/Bill Paying: Independent Communication: Independent Types of Care Services/Equipment Utilized Care Services: Dialysis Type: NA Durable Medical Equipment: DME Provider: DENIES Patient's Goal/Discharge Plan Patient expects to be discharged to: HOME Discharge Planning Actions: Continue to follow Patient's Choice Rights and [employer] and Collaborative Relationships Disclosed as Indicated for Post-Acute Care: Interdisciplinary Team Engagement: Social Work Referral for: Community Resources Additional Information: Inpatient status from home with hematemesis. Admitted to tel, GI and addiction med consulted, daily labs, h/h every 8 hours, ciwa protocol. Npo after midnight for Egd, ppi. Discharge preparation checklist reviewed with patient. Has prescription coverage and able to afford medications. States lives at home with his spouse and step children and is independent in his adls. Admits to drinking 9 tall boys per day. Ciwa score 15 around noon today. Tentative discharge plan is home with spouse when medically stable. Will update social organization professor to provide with community resources. Tentative discharge plan is home with family when medically stable. Keila Yo RN Problem: Pain - Adult Goal: Verbalizes/displays adequate comfort level or baseline comfort level Outcome: Progressing Problem: Safety - Adult Goal: Free from fall injury Outcome: Progressing documented in this encounter [facility] 07-23-2022 Note Formatting of this n ote might be different from the original. 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 A few isolated islands present. The maximum longitudinal extent of these mucosal changes was 1 cm in length. Previously biopsied. Not biopsied A 2 cm hiatal hernia was present. The entire examined stomach, cardia (on retroflexion) and gastric fundus (on retroflexion) were normal. The duodenal bulb and second portion of the duodenum were normal. Impression: - Esophageal mucosal changes secondary to established short-segment Lombardo's disease. - 2 cm hiatal hernia. - Normal stomach, cardia and gastric fundus. - Normal duodenal bulb and second portion of the duodenum. - No specimens collected. Recommendation: - Resume previous diet. - Continue present medications. - Continue PPI daily - Will sign off. Call if can be of further assistance. Medicines: Monitored Anesthesia Care, See the Anesthesia note for documentation of the administered medications Procedure: Pre-Anesthesia Assessment: - Prior to the procedure, a History and Physical was performed, and patient medications and allergies were reviewed. The patient's tolerance of previous anesthesia was also reviewed. The risks and benefits of the procedure and the sedation options and risks were discussed with the patient. All questions were answered, and informed consent was obtained. Prior Anticoagulants: The patient has taken no anticoagulant or antiplatelet agents. ASA Grade Assessment: III - A patient with severe systemic disease. After reviewing the risks and benefits, the patient was deemed in satisfactory condition to undergo the procedure. After obtaining informed consent, the endoscope was passed under direct vision. Throughout the procedure, the patient's blood pressure, pulse, and oxygen saturations were monitored continuously. The Endoscope was introduced through the mouth, and advanced to the second part of duodenum. The upper GI endoscopy was accomplished without difficulty. The patient tolerated the procedure well. Complications: No immediate complications. Procedure Code(s): --- Professional --- 55886, Esophagogastroduodenoscopy, flexible, transoral; diagnostic, including collection of specimen(s) by brushing or washing, when performed (separate procedure) --- Technical --- 05472, Esophagogastroduodenoscopy, flexible, transoral; diagnostic, including collection of specimen(s) by brushing or washing, when performed (separate procedure) Diagnosis Code(s): --- Professional --- K22.70, Lombardo's esophagus without dysplasia K44.9, Diaphragmatic hernia without obstruction or gangrene K92.0, Hematemesis --- Technical --- K22.70, Lombardo's esophagus without dysplasia K44.9, Diaphragmatic hernia without obstruction or gangrene K92.0, Hematemesis CPT copyright 2021 [employer]. All rights reserved. The codes documented in this report are preliminary and upon health information coder review may be revised to meet current compliance requirements. Attending Participation: I personally performed the entire procedure. Jose Estrella DO 07/23/2022 9:53:58 AM This report has been signed electronically. Number of Addenda: 0 Note Initiated On: 07/23/2022 9:24 AM [facility] 07-23-2022 Note Addended by: LYNDA COTA on: 07/23/2022 08:57 AM Modules accepted: Orders [facility] 07-23-2022 Note Addended by: LYNDA COTA on: 07/23/2022 08:57 AM Modules accepted: Orders [facility] 07-23-2022 Telephone encounter Note sent [facility] 07-23-2022 Miscellaneous Notes Addended by: LYNDA RASHEED on: 07/23/2022 08:57 AM Modules accepted: Orders sent Letter sent. Phone OOS Phone OOS No Is there more to #3? 1. X-ray of the shoulder is normal #2 Sugar is elevated add an A1c. Cholesterol is improving however still elevated. Low-fat diet and exercise recommend medication called Crestor let me know if okay to send in. documented in this encounter [facility] 07-22-2022 Note Formatting of this n ote might be different from the original. Care Managment Initial Assessment Date: 07/22/2022 Patient Name: Maria De Jesus Hogan : 1965 Patient Information Source of Information: Patient, Patient Inhalation Therapist Name/Contact Information: JUDY HOGAN [phone] SPOUSE Cognition/Language: WFL - Within Functional Limits Permission given to speak with patient sales and service representative/caregiver as indicated: Yes Confirmation of Payer with patient/family: Yes Payer Name: [employer] [employer] Union: No Confirmation of Primary Care Physician: Confirmed PCP Name: DR. RASHEED Seen in last 2 years?: Yes Primary Caregiver: Self If assistance needed, confirmed caregiver ready, willing and able to care for patient at discharge: Confirmed with: Living Arrangements Current Residence: House Number of Floors 2 Number of Entry Steps: 3 Bed/Bath Levels: Separate floors Facility: Facility Name: [facility] Plan to Return: Yes Lives with: Spouse/significant other, Children (SPOUSE AND STEP KIDS AGES 16 AND 24) Support Systems: Spouse/significant other, Children Activities of Daily Living Ambulation: Independent Bathing/Dressing: Independent Elimination/Continence/Toileting: Independent Feeding: Independent Who Assists with Activities of Daily Living: NA Instrumental Activities of Daily Living Prescription Coverage: Yes Pharmacy Used: [facility] Medication Management: Independent Transportation/Shopping: Independent Transportation Mode: Car Needs Assistance with Transportation at Discharge: No (SPOUSE) Meal Preparation: Independent Laundry/Cleaning: Independent Finances/Bill Paying: Independent Communication: Independent Types of Care Services/Equipment Utilized Care Services: Dialysis Type: NA Durable Medical Equipment: DME Provider: DENIES Patient's Goal/Discharge Plan Patient expects to be discharged to: HOME Discharge Planning Actions: Continue to follow Patient's Choice Rights and [employer] and Collaborative Relationships Disclosed as Indicated for Post-Acute Care: Interdisciplinary Team Engagement: Social Work Referral for: Community Resources Additional Information: Inpatient status from home with hematemesis. Admitted to tel, GI and addiction med consulted, daily labs, h/h every 8 hours, ciwa protocol. Npo after midnight for Egd, ppi. Discharge preparation checklist reviewed with patient. Has prescription coverage and able to afford medications. States lives at home with his spouse and step children and is independent in his adls. Admits to drinking 9 tall boys per day. Ciwa score 15 around noon today. Tentative discharge plan is home with spouse when medically stable. Will update social organization professor to provide with community resources. Tentative discharge plan is home with family when medically stable. Keila Yo RN T [facility] 07-22-2022 Consult note Associated Order (s): IP CONSULT TO GI Images from the original note were not included. GASTROENTEROLOGY CONSULTATION REASON FOR CONSULT: The patient was seen in consultation at the request of Dr. Teixeira re: Hematemesis HISTORY OF PRESENT ILLNESS: The patient is a 56 y.o. male with past medical history as listed below including history of chronic alcohol abuse who presents with hematemesis. The patient came to the ED requesting detox. Had a similar admission this past August 2021. EGD with Dr. Gotti with evidence of esophagitis and Lombardo's esophagus. No evidence of esophageal or gastric varices. Patient continues to drink heavily on a daily basis. Yesterday had a few episodes of nonbloody emesis followed by a small amount of hematemesis which she described as bright red in color. Currently tremulous and going through DTs requiring Ativan. Patient otherwise denies any further N/V, hematemesis since yesterday. Remains hemodynamically stable. No drop in hemoglobin. No associated fevers, chills or sweats. PAST MEDICAL HISTORY: Past Medical History: Diagnosis Date Alcohol abuse Alcohol dependence with withdrawal (HCC) 08/31/2019 Alcohol intoxication without use disorder, uncomplicated (HCC) 10/01/2019 Alcohol withdrawal, uncomplicated (HCC) 08/31/2019 Alcohol withdrawal, with unspecified complication (HCC) 10/02/2019 Alcohol withdrawal, with unspecified complication (HCC) 10/02/2019 Alcoholism (CMS/HCC) (HCC) Anxiety Cerebral artery occlusion with cerebral infarction (CMS/HCC) (HCC) Cerebrovascular disease Depression Hypertension Insomnia PAST SURGICAL HISTORY: Past Surgical History: Procedure Laterality Date COLONOSCOPY 06/10/2020 EGD/Dr Madison/[facility] REMOVAL face UPPER GASTROINTESTINAL ENDOSCOPY 09/27/2021 normal WISDOM TOOTH EXTRACTION SOCIAL HISTORY: TOBACCO: Social History Tobacco Use Smoking Status Every Day Packs/day: 1.50 Types: Cigarettes Smokeless Tobacco Never ETOH: Alcohol Use: Heavy Drinker Frequency of Alcohol Consumption: 4 or more times a week Average Number of Drinks: 10 or more Frequency of Binge Drinking: Daily or almost daily DRUGS: Social History Substance and Sexual Activity Drug Use No FAMILY HISTORY: Family History Problem Relation Name Age of Onset Depression Sister Cancer Mother colon rectal cancer; dx after age 50 Other (54334) Mother alcoholism Other ([id number]) Father h/o rheumatic fever, cardiac arrest due to bee sting Other (04335) Sister agoraphobia MEDICATIONS PRIOR TO ADMISSION: Current Outpatient Medications Medication Instructions albuterol 108 (90 Base) MCG/ACT inhaler 2 puffs, Inhalation, Every 6 hours PRN calcipotriene (Dovonex) 0.005 % cream Topical, 2 times daily clobetasol (Temovate) 0.05 % cream Topical, 2 times daily gabapentin (NEURONTIN) 600 mg, Oral, 3 times daily melatonin 5 mg, Oral Multiple Vitamins tablet 1 tablet, Oral pantoprazole (PROTONIX) 40 mg, Oral, Daily before breakfast rosuvastatin (Crestor) 10 MG tablet No dose, route, or frequency recorded. CURRENT MEDICATIONS: Current Facility-Administered Medications: albuterol 108 (90 Base) MCG/ACT inhaler 2 puff, 2 puff, Inhalation, q6h PRN, Redd Teixeira MD folic acid (Folvite) tablet 1 mg, 1 mg, Oral, Daily, Redd Teixeira MD, 1 mg at 07/22/22 0838 gabapentin (Neurontin) tablet 600 mg, 600 mg, Oral, TID, Redd Teixeira MD, 600 mg at 07/22/22 0838 LORazepam (Ativan) tablet 1 mg, 1 mg, Oral, q1h PRN OR LORazepam (Ativan) injection 1 mg, 1 mg, IntraVENous, q1h PRN OR LORazepam (Ativan) tablet 2 mg, 2 mg, Oral, q1h PRN OR LORazepam (Ativan) injection 2 mg, 2 mg, IntraVENous, q1h PRN, 2 mg at 07/22/22 0856 OR LORazepam (Ativan) tablet 3 mg, 3 mg, Oral, q1h PRN OR LORazepam (Ativan) injection 3 mg, 3 mg, IntraVENous, q1h PRN, 3 mg at 07/21/22 2034 OR LORazepam (Ativan) tablet 4 mg, 4 mg, Oral, q1h PRN OR LORazepam (Ativan) injection 4 mg, 4 mg, IntraVENous, q1h PRN, Redd Teixeira MD, 4 mg at 07/22/22 0109 ondansetron ODT (Zofran-ODT) disintegrating tablet 4 mg, 4 mg, Oral, q8h PRN OR ondansetron (Zofran) injection 4 mg, 4 mg, IntraVENous, q6h PRN, Redd Teixeira MD pantoprazole (ProtoNix) injection 40 mg, 40 mg, IntraVENous, 2 times per day, Redd Teixeira MD polyethylene glycol (PEG) 3350 (Miralax) packet 17 g, 17 g, Oral, Daily PRN, Redd Teixeira MD Thiamine Mononitrate (Vitamin B1) tablet 100 mg, 100 mg, Oral, Daily, Redd Teixeira MD, 100 mg at 07/22/22 0838 ALLERGIES: Allergies Allergen Reactions Bee Venom Swelling Nickel Rash Tramadol Nausea And Vomiting Other reaction(s): AOF REVIEW OF SYMPTOMS: Ten-point review of symptoms was noted and reviewed in the chart. PHYSICAL EXAM VS:vBP 104/79 Pulse (!) 115 Temp 36.7 C (98 F) (Temporal) Resp 18 Ht 5' 10.98 (1.803 m) Wt 222 lb 10.6 oz (101 kg) SpO2 (!) 82% BMI 31.07 kg/m Body mass index is 31.07 kg/m . GENERAL: Tremulous, agitated, and NAD. HEENT: Scleral anicteric. Oropharhynx clear with no erythema or exudate. CV: RRR, NL S1/S2, no murmurs. LUNGS: CTA b/l. No W/R/R. ABDOMEN: ,soft, non-tender and non-distended, + BS. No hepatosplenomegaly. No mass felt. No rebound or guarding. No hernia. No stigmata of ESLD EXT: No C/C/E. SKIN: No obvious skin lesions or rashes MUSCULOSKELETALl: Strength 5/5 in all exts. NEURO: A&O x 3, No obvious focal deficits. LABS AND IMAGING: Recent blood work and relevant radiologic and endoscopic studies were reviewed and discussed with the patient. Results from last 7 days Lab Units 07/22/22 0124 07/21/22 1642 WBC AUTO 10*3/uL 5.7 6.2 HEMOGLOBIN g/dL 15.6 16.0 HEMATOCRIT % 47.1 46.9 PLATELETS AUTO 10*3/uL 201 211 Results from last 7 days Lab Units 07/22/22 0530 07/21/22 1642 SODIUM mmol/L 133* 136 POTASSIUM mmol/L 4.0 4.1 CHLORIDE mmol/L 100 101 CO2 mmol/L 26 24 BUN mg/dL 11 8* CREATININE mg/dL 0.85 0.85 CALCIUM mg/dL 8.0* 8.5 PROTEIN TOTAL g/dL 7.3 7.4 BILIRUBIN TOTAL mg/dL 0.6 0.5 ALK PHOS U/L 122 124 ALT U/L 43 43 AST U/L 49* 56* GLUCOSE mg/dL 97 98 Results from last 7 days Lab Units 07/21/22 1642 INR 0.9 IMAGING: Exam Date/Time: 07/21/2022 17:53 Procedure: CT ABDOMEN PELVIS W CONTRAST Ordering Provider: VILLALTA TYLER Reason For Exam: upper abd pain, hematemesis, eval for bleeding source, pancratitis CT ABDOMEN AND PELVIS WITH CONTRAST CLINICAL INDICATION: Upper abdominal pain and hematemesis.. TECHNIQUE: Multi-axial 3mm sections through the abdomen and pelvis following 75 mL of Isoview contrast media. No oral contrast was administered. Coronal and sagittal reconstructions were reviewed. Dose reduction was employed with automated exposure control. COMPARISON: 06/06/2021. FINDINGS: Lung bases: Normal. Liver: Liver is diffusely low in density consistent with fatty liver change. No focal lesion. Biliary tree: The gallbladder is unremarkable. No biliary dilatation. Spleen: Normal. Adrenals: Normal. Pancreas: Normal. Kidneys: Symmetric contrast enhancement without evidence of hydronephrosis. No focal renal lesion is identified. Free air or fluid: None. Mesenteric/retroperitoneal: No adenopathy or inflammation. Aorta: Atherosclerotic calcific aortic and iliac artery changes. Bowel: The appendix is not visualized and no pericecal inflammatory changes are evident.. No dilatation is noted. Sigmoid diverticulosis without evidence of acute diverticulitis. No definite evidence of pneumatosis coli. Abdominal wall: No ventral hernia is evident. Pelvic organs/viscera: No mass identified. Bladder is normally distended. No pelvic free fluid. Inguinal lymphadenopathy: None. Osseous structures: Lumbar degenerative spondylosis. IMPRESSION: No acute abdominal or pelvic findings to explain symptoms. Hepatic steatosis. Sigmoid diverticulosis. ASSESSMENT: Hematemesis: Likely secondary to M-W tear. Rule out esophagitis, gastritis, PUD. No evidence of varices on prior EGD. Alcohol use disorder Alcohol withdrawal PLAN: Plan for EGD in the a.m. We will need to reassess to see if he will tolerate anesthesia given his current withdrawal symptoms. CIWA protocol with close monitoring Addiction medicine evaluation PPI twice daily for now Monitor hemoglobin and transfuse as needed. The benefits, alternatives, and risks of the procedure(s) including (but not exclusive to) bleeding, perforation, infection, hypoxia/hypotension/allergic reaction(s) due to sedatives need for surgery, and likelihood of missing a lesion, were explained to the patient/guardian/responsible accompanying adult who is agreeable (Comment: Please note this report has been produced using speech recognition software and may contain errors related to that system including errors in grammar, punctuation, and spelling, as well as words and phrases that may be inappropriate. If there are any questions or concerns please feel free to contact the dictating provider for clarification.) Electronically signed by Jose Estrella DO 07/22/2022 10:49 AM [facility] Phone: 07-22-2022 Plan of care note Problem: Pain - Adult Goal: Verbalizes/displays adequate comfort level or baseline comfort level Outcome: Progressing Problem: Safety - Adult Goal: Free from fall injury Outcome: Progressing [facility] 07-21-2022 History and physical note Images from the original note were not included. Attending History and Physical Admit Date: 07/21/2022 PCP: Lynda Rasheed MD CHIEF COMPLAINT: I am here for detox Reason for Admission: Alcoholism. Hematemesis History Obtained From: patient HISTORY OF PRESENT ILLNESS: Maria De Jesus is a 56 y.o. male with significant past medical history of alcoholism, alcohol withdrawals/DTs, gastroesophageal reflux disease, neuropathy, patient had a similar admission in 09/2021, had a EGD on 09/27/2021 which showed esophagitis and Lombardo's esophagus, during that admission patient left AGAINST MEDICAL ADVICE. As per the patient he continued to drink alcohol, last drink was a few hours ago, he came to the emergency room saying that he is fed up of drinking and would like to undergo detox. Also patient is complaining of vomiting blood had 2 episodes since yesterday, denies any abdominal pain, denies any chest pain shortness of breath or palpitations, denies any fever chills or rigors. Initial work-up in the emergency room labs and vitals unremarkable. Admitting patient for further management. Past Medical History: Past Medical History: Diagnosis Date Alcohol abuse Alcohol dependence with withdrawal (HCC) 08/31/2019 Alcohol intoxication without use disorder, uncomplicated (HCC) 10/01/2019 Alcohol withdrawal, uncomplicated (HCC) 08/31/2019 Alcohol withdrawal, with unspecified complication (HCC) 10/02/2019 Alcohol withdrawal, with unspecified complication (HCC) 10/02/2019 Alcoholism (CMS/HCC) (HCC) Anxiety Cerebral artery occlusion with cerebral infarction (CMS/HCC) (HCC) Cerebrovascular disease Depression Hypertension Insomnia Past Surgical History: Past Surgical History: Procedure Laterality Date COLONOSCOPY 06/10/2020 EGD/Dr Madison/[facility] REMOVAL face UPPER GASTROINTESTINAL ENDOSCOPY 09/27/2021 normal WISDOM TOOTH EXTRACTION Social History: Social History Socioeconomic History Marital status: Spouse name: Not on file Number of children: Not on file Years of education: Not on file Highest education level: Not on file Occupational History Not on file Tobacco Use Smoking status: Every Day Packs/day: 1.50 Types: Cigarettes Smokeless tobacco: Never Substance and Sexual Activity Alcohol use: Yes Drug use: No Sexual activity: Not on file Comment: live with Other Topics Concern Not on file Social History Narrative Not on file Social Determinants of Health Financial Resource Strain: Not on file Food Insecurity: Not on file Transportation Needs: Not on file Physical Activity: Not on file Stress: Not on file Social Connections: Not on file Intimate Partner Violence: Not on file Housing Stability: Not on file Family History: Family History Problem Relation Name Age of Onset Depression Sister Cancer Mother colon rectal cancer; dx after age 50 Other (24294) Mother alcoholism Other (85561) Father h/o rheumatic fever, cardiac arrest due to bee sting Other (72244) Sister agoraphobia Medications Prior to Admission: No current facility-administered medications on file prior to encounter. Current Outpatient Medications on File Prior to Encounter Medication Sig Dispense Refill melatonin 5 MG tablet Take 5 mg by mouth. Multiple Vitamins tablet Take 1 tablet by mouth. albuterol 108 (90 Base) MCG/ACT inhaler Inhale 2 puffs every 6 hours as needed for wheezing or shortness of breath. 18 g 3 calcipotriene (Dovonex) 0.005 % cream Apply topically 2 times daily. 60 g 2 clobetasol (Temovate) 0.05 % cream Apply topically 2 times daily. 15 g 0 gabapentin (Neurontin) 600 MG tablet Take 1 tablet (600 mg) by mouth 3 times daily. 90 tablet 0 pantoprazole (ProtoNix) 40 MG EC tablet Take 1 tablet (40 mg) by mouth every morning (before breakfast). 30 tablet 3 rosuvastatin (Crestor) 10 MG tablet [DISCONTINUED] albuterol 108 (90 Base) MCG/ACT inhaler Inhale 2 puffs every 6 hours as needed for wheezing or shortness of breath. 18 g 3 [DISCONTINUED] gabapentin (Neurontin) 600 MG tablet Take 1 tablet (600 mg) by mouth 3 times daily. 90 tablet 0 Allergies: Allergies Allergen Reactions Bee Venom Swelling Nickel Rash Tramadol Nausea And Vomiting Other reaction(s): AOF REVIEW OF SYSTEMS: Constitutional: Negative for fever, chills, activity change and unexpected weight change. HEENT: Negative for congestion, postnasal drip and sneezing. Eyes: Negative for itching and visual disturbance. Respiratory: Negative for apnea, cough, choking, chest tightness, shortness of breath, wheezing and stridor. Cardiovascular: Negative for chest pain. Gastrointestinal: Negative for nausea, vomiting, abdominal pain, diarrhea and blood in stool. Genitourinary: Negative for dysuria, frequency and flank pain. Musculoskeletal: Negative for myalgias and joint swelling. Skin: Negative for rash. Neurological: Negative for dizziness, tremors, seizures, syncope, facial asymmetry, speech difficulty, weakness, numbness and headaches. Hematological: Negative for adenopathy. Psychiatric/Behavioral: Negative for suicidal ideas, behavioral problems, self-injury and dysphoric mood. Vitals: BP 126/79 Pulse 95 Temp 36.4 C (97.6 F) (Temporal) Resp 20 SpO2 92% BMI Classification: Obese (BMI 30.0-39.9) Pulse Ox: SpO2 Av % Min: 92 % Max: 92 % Supplemental O2: PHYSICAL EXAM: Physical Exam General: Alert, no distress Neck: Supple HEENT: Normocephalic, atraumatic, pupils equal react light Heart: S1-S2 heard, no murmurs gallops regurgitation Lungs: Clear to auscultation bilaterally no wheezing rales or rhonchi Abdomen: Nondistended, nontender, bowel sounds are present Extremities: No edema Neuro: No focal deficits Musculoskeletal: No obvious deformities Skin: Intact DATA: CBC: Recent Labs 07/21/22 1642 WBC 6.2 RBC 4.77 HGB 16.0 HCT 46.9 MCV 98.4* RDW 15.4* PLT 211 BMP: Recent Labs 07/21/22 1642 NA 136 K 4.1 CL 101 CO2 24 BUN 8* CREATININE 0.85 GLUCOSE 98 CALCIUM 8.5 ANIONGAP 11 LIVER PROFILE: Recent Labs 07/21/22 1642 AST 56* ALT 43 BILITOT 0.5 ALKPHOS 124 PROT 7.4 PT/INR: Recent Labs 07/21/22 1642 PROTIME 10.3 INR 0.9 CARDIAC ENZYMES: Recent Labs 07/21/22 164 TROPONINI <0.012 Procalcitonin: No results found for: PROCAL Urine Culture: No results found for this or any previous visit. COVID-19 PCR: No results for input(s): COVID19 in the last 72 hours. I reviewed: [x] laboratory results [x] radiographic results At the time of today's encounter. Pt was advised of the results. IMPRESSION: Alcoholism/elevated blood alcohol levels of 0.3. Hematemesis/upper GI bleed. 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 DTs. Gastroesophageal reflux disease. Neuropathy. Life-threatening noncompliance to medications/leaving AGAINST MEDICAL ADVICE. Medical Decision Making: Patient came to the emergency room requesting for detox, last alcohol drink few hours ago, blood alcohol levels significantly elevated at 0.3, no signs of withdrawals at this point in time. Also patient complaining of hematemesis, given his history of esophagitis and Lombardo's esophagus. Admitting patient for further management. N.p.o., IV fluids, hemoglobin check every 6 hours. IV Protonix 40 twice daily. GI consult. No signs of withdrawal given high blood alcohol levels, continue to monitor closely for withdrawals. Started on CIWA protocol, addiction medicine consulted. CBC, CMP ordered. -PT/OT eval/increase activity -am labs, replace lytes prn -vitals per routine -home meds as ordered -DVT prophylaxis: [] Lovenox [] Heparin [] SCDs [x] Encourage ambulation [] Already on Anticoagulation Anticipated Discharge - Date -2 to 3 days - Location - Acute Rehab - Pending the following -addiction medicine and GI consults Total time spent (which include face to face and non face to face encounters) : More than 35 minutes Toxic drug monitoring/narrow therapeutic index drug monitoring : # Drug name : # Route administered : # Method of monitoring : Extended Emergency Contact Information Primary Emergency Contact: Samira Relation: Spouse Code status: Full Code -see below for additional orders, further recommendations to follow Orders Placed This Encounter Procedures SARS-CoV-2, Flu A/B, and RSV Combo CT abdomen pelvis w contrast CBC auto differential Comprehensive metabolic panel Lipase Urinalysis Complete with reflex to Culture Troponin I Ethanol Drug screen panel, emergency Complete Urinalysis Type and screen Protime-INR Magnesium Phosphorus TSH Vitamin B12 CBC Comprehensive metabolic panel Hemoglobin NPO diet NPO except: Ice Chips, Sips of Water with Meds, Sips of Clear Liquids, Popsicles Vital Signs Continuous Pulse Oximetry Vital Signs per unit routine Notify Provider (Other) Alcohol and or drug assessment Activity No Restrictions Telemetry monitoring for Drug Overdose Full code Inpatient consult to Gastroenterology Inpatient consult to Addiction Medicine ECG 12 lead Insert peripheral IV Admit to inpatient Seizure precautions Fall precautions Please forward a copy of this H&P to the patient's PCP. Thank you. [facility] 07-21-2022 History and physical note Images from the original note were not included. Attending History and Physical Admit Date: 07/21/2022 PCP: Lynda Rasheed MD CHIEF COMPLAINT: I am here for detox Reason for Admission: Alcoholism. Hematemesis History Obtained From: patient HISTORY OF PRESENT ILLNESS: Maria De Jesus is a 56 y.o. male with significant past medical history of alcoholism, alcohol withdrawals/DTs, gastroesophageal reflux disease, neuropathy, patient had a similar admission in 09/2021, had a EGD on 09/27/2021 which showed esophagitis and Lombardo's esophagus, during that admission patient left AGAINST MEDICAL ADVICE. As per the patient he continued to drink alcohol, last drink was a few hours ago, he came to the emergency room saying that he is fed up of drinking and would like to undergo detox. Also patient is complaining of vomiting blood had 2 episodes since yesterday, denies any abdominal pain, denies any chest pain shortness of breath or palpitations, denies any fever chills or rigors. Initial work-up in the emergency room labs and vitals unremarkable. Admitting patient for further management. Past Medical History: Past Medical History: Diagnosis Date Alcohol abuse Alcohol dependence with withdrawal (HCC) 08/31/2019 Alcohol intoxication without use disorder, uncomplicated (HCC) 10/01/2019 Alcohol withdrawal, uncomplicated (HCC) 08/31/2019 Alcohol withdrawal, with unspecified complication (HCC) 10/02/2019 Alcohol withdrawal, with unspecified complication (HCC) 10/02/2019 Alcoholism (CMS/HCC) (HCC) Anxiety Cerebral artery occlusion with cerebral infarction (CMS/HCC) (HCC) Cerebrovascular disease Depression Hypertension Insomnia Past Surgical History: Past Surgical History: Procedure Laterality Date COLONOSCOPY 06/10/2020 EGD/Dr Madison/AMANDA CYST REMOVAL face UPPER GASTROINTESTINAL ENDOSCOPY 09/27/2021 normal WISDOM TOOTH EXTRACTION Social History: Social History Socioeconomic History Marital status: Spouse name: Not on file Number of children: Not on file Years of education: Not on file Highest education level: Not on file Occupational History Not on file Tobacco Use Smoking status: Every Day Packs/day: 1.50 Types: Cigarettes Smokeless tobacco: Never Substance and Sexual Activity Alcohol use: Yes Drug use: No Sexual activity: Not on file Comment: live with Other Topics Concern Not on file Social History Narrative Not on file Social Determinants of Health Financial Resource Strain: Not on file Food Insecurity: Not on file Transportation Needs: Not on file Physical Activity: Not on file Stress: Not on file Social Connections: Not on file Intimate Partner Violence: Not on file Housing Stability: Not on file Family History: Family History Problem Relation Name Age of Onset Depression Sister Cancer Mother colon rectal cancer; dx after age 50 Other ([id number]) Mother alcoholism Other ([id number]) Father h/o rheumatic fever, cardiac arrest due to bee sting Other ([id number]) Sister agoraphobia Medications Prior to Admission: No current facility-administered medications on file prior to encounter. Current Outpatient Medications on File Prior to Encounter Medication Sig Dispense Refill melatonin 5 MG tablet Take 5 mg by mouth. Multiple Vitamins tablet Take 1 tablet by mouth. albuterol 108 (90 Base) MCG/ACT inhaler Inhale 2 puffs every 6 hours as needed for wheezing or shortness of breath. 18 g 3 calcipotriene (Dovonex) 0.005 % cream Apply topically 2 times daily. 60 g 2 clobetasol (Temovate) 0.05 % cream Apply topically 2 times daily. 15 g 0 gabapentin (Neurontin) 600 MG tablet Take 1 tablet (600 mg) by mouth 3 times daily. 90 tablet 0 pantoprazole (ProtoNix) 40 MG EC tablet Take 1 tablet (40 mg) by mouth every morning (before breakfast). 30 tablet 3 rosuvastatin (Crestor) 10 MG tablet [DISCONTINUED] albuterol 108 (90 Base) MCG/ACT inhaler Inhale 2 puffs every 6 hours as needed for wheezing or shortness of breath. 18 g 3 [DISCONTINUED] gabapentin (Neurontin) 600 MG tablet Take 1 tablet (600 mg) by mouth 3 times daily. 90 tablet 0 Allergies: Allergies Allergen Reactions Bee Venom Swelling Nickel Rash Tramadol Nausea And Vomiting Other reaction(s): AOF REVIEW OF SYSTEMS: Constitutional: Negative for fever, chills, activity change and unexpected weight change. HEENT: Negative for congestion, postnasal drip and sneezing. Eyes: Negative for itching and visual disturbance. Respiratory: Negative for apnea, cough, choking, chest tightness, shortness of breath, wheezing and stridor. Cardiovascular: Negative for chest pain. Gastrointestinal: Negative for nausea, vomiting, abdominal pain, diarrhea and blood in stool. Genitourinary: Negative for dysuria, frequency and flank pain. Musculoskeletal: Negative for myalgias and joint swelling. Skin: Negative for rash. Neurological: Negative for dizziness, tremors, seizures, syncope, facial asymmetry, speech difficulty, weakness, numbness and headaches. Hematological: Negative for adenopathy. Psychiatric/Behavioral: Negative for suicidal ideas, behavioral problems, self-injury and dysphoric mood. Vitals: BP 126/79 Pulse 95 Temp 36.4 C (97.6 F) (Temporal) Resp 20 SpO2 92% BMI Classification: Obese (BMI 30.0-39.9) Pulse Ox: SpO2 Av % Min: 92 % Max: 92 % Supplemental O2: PHYSICAL EXAM: Physical Exam General: Alert, no distress Neck: Supple HEENT: Normocephalic, atraumatic, pupils equal react light Heart: S1-S2 heard, no murmurs gallops regurgitation Lungs: Clear to auscultation bilaterally no wheezing rales or rhonchi Abdomen: Nondistended, nontender, bowel sounds are present Extremities: No edema Neuro: No focal deficits Musculoskeletal: No obvious deformities Skin: Intact DATA: CBC: Recent Labs 07/21/22 1642 WBC 6.2 RBC 4.77 HGB 16.0 HCT 46.9 MCV 98.4* RDW 15.4* PLT 211 BMP: Recent Labs 07/21/22 1642 NA 136 K 4.1 CL 101 CO2 24 BUN 8* CREATININE 0.85 GLUCOSE 98 CALCIUM 8.5 ANIONGAP 11 LIVER PROFILE: Recent Labs 07/21/22 1642 AST 56* ALT 43 BILITOT 0.5 ALKPHOS 124 PROT 7.4 PT/INR: Recent Labs 07/21/22 1642 PROTIME 10.3 INR 0.9 CARDIAC ENZYMES: Recent Labs 07/21/22 164 TROPONINI <0.012 Procalcitonin: No results found for: PROCAL Urine Culture: No results found for this or any previous visit. COVID-19 PCR: No results for input(s): COVID19 in the last 72 hours. I reviewed: [x] laboratory results [x] radiographic results At the time of today's encounter. Pt was advised of the results. IMPRESSION: Alcoholism/elevated blood alcohol levels of 0.3. Hematemesis/upper GI bleed. 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 DTs. Gastroesophageal reflux disease. Neuropathy. Life-threatening noncompliance to medications/leaving AGAINST MEDICAL ADVICE. Medical Decision Making: Patient came to the emergency room requesting for detox, last alcohol drink few hours ago, blood alcohol levels significantly elevated at 0.3, no signs of withdrawals at this point in time. Also patient complaining of hematemesis, given his history of esophagitis and Lombardo's esophagus. Admitting patient for further management. N.p.o., IV fluids, hemoglobin check every 6 hours. IV Protonix 40 twice daily. GI consult. No signs of withdrawal given high blood alcohol levels, continue to monitor closely for withdrawals. Started on CIWA protocol, addiction medicine consulted. CBC, CMP ordered. -PT/OT eval/increase activity -am labs, replace lytes prn -vitals per routine -home meds as ordered -DVT prophylaxis: [] Lovenox [] Heparin [] SCDs [x] Encourage ambulation [] Already on Anticoagulation Anticipated Discharge - Date -2 to 3 days - Location - Acute Rehab - Pending the following -addiction medicine and GI consults Total time spent (which include face to face and non face to face encounters) : More than 35 minutes Toxic drug monitoring/narrow therapeutic index drug monitoring : # Drug name : # Route administered : # Method of monitoring : Extended Emergency Contact Information Primary Emergency Contact: Samira Relation: Spouse Code status: Full Code -see below for additional orders, further recommendations to follow Orders Placed This Encounter Procedures SARS-CoV-2, Flu A/B, and RSV Combo CT abdomen pelvis w contrast CBC auto differential Comprehensive metabolic panel Lipase Urinalysis Complete with reflex to Culture Troponin I Ethanol Drug screen panel, emergency Complete Urinalysis Type and screen Protime-INR Magnesium Phosphorus TSH Vitamin B12 CBC Comprehensive metabolic panel Hemoglobin NPO diet NPO except: Ice Chips, Sips of Water with Meds, Sips of Clear Liquids, Popsicles Vital Signs Continuous Pulse Oximetry Vital Signs per unit routine Notify Provider (Other) Alcohol and or drug assessment Activity No Restrictions Telemetry monitoring for Drug Overdose Full code Inpatient consult to Gastroenterology Inpatient consult to Addiction Medicine ECG 12 lead Insert peripheral IV Admit to inpatient Seizure precautions Fall precautions Please forward a copy of this H&P to the patient's PCP. Thank you. documented in this encounter [facility] 07-21-2022 Note NOTE: This result is for medical treatment only. Analysis performed using non-forensic procedures. [facility] 07-21-2022 Emergency department Note Pt placed on 3LNC for O2 support. Saturations as low as 74%RA while sleeping. Saturations recovered to 90% on 3LNC while sleeping Harika Gay RN 07/21/221716 [facility] 07-21-2022 Emergency department Note Pt placed on 3LNC for O2 support. Saturations as low as 74%RA while sleeping. Saturations recovered to 90% on 3LNC while sleeping Harika Gay RN 07/21/221716 EMERGENCY DEPARTMENT ENCOUNTER Pt Name: Maria De Jesus Hogan Birthdate 1965 Date of evaluation: 07/21/2022 ED Provider: Arsenio Villalta DO CHIEF COMPLAINT Chief Complaint Patient presents with Alcohol Problem Pt states that he is a daily drinker, usually 8-9 tall boys a day. Pt has been vomiting x1 week and states he has been getting intoxicated from drinking but is not keeping down what he normally would. 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 Also reports BRB in his vomit. HISTORY OF PRESENT ILLNESS (Location/Symptom, Timing/Onset, Context/Setting, Quality, Duration, Modifying Factors, Severity) Note limiting factors. I wore appropriate PPE for the entirety of this encounter. HPI Maria De Jesus Hogan is a 56 y.o. male who presents to the emergency department with hematemesis. Patient has a history of esophagitis and Lombardo's esophagus in August 2021 when he presented to the emergency room and was admitted for hematemesis secondary to his chronic alcoholism. States he was detoxed as well during that admission but quickly began drinking again. States he drinks daily. States he drinks multiple beers per day. Last drink was just prior to arrival. States the hematemesis started last night. States the blood is bright red. No history of varices. Has some moderate mount of pain to his epigastrium. Also states he has intermittent chest pain described as sharp. Patient denies any other lower abdominal pain, fevers, chills. States he has had some shortness of breath off and on for weeks. Nursing Notes were reviewed. REVIEW OF SYSTEMS 14 systems reviewed and otherwise acutely negative except as in the [place]. PAST MEDICAL HISTORY Past Medical History: Diagnosis Date Alcohol abuse Alcohol dependence with withdrawal (HCC) 08/31/2019 Alcohol intoxication without use disorder, uncomplicated (HCC) 10/01/2019 Alcohol withdrawal, uncomplicated (HCC) 08/31/2019 Alcohol withdrawal, with unspecified complication (HCC) 10/02/2019 Alcohol withdrawal, with unspecified complication (HCC) 10/02/2019 Alcoholism (CMS/HCC) (HCC) Anxiety Cerebral artery occlusion with cerebral infarction (CMS/HCC) (HCC) Cerebrovascular disease Depression Hypertension Insomnia SURGICAL HISTORY Past Surgical History: Procedure Laterality Date COLONOSCOPY 06/10/2020 EGD/Dr Madison/AMANDA CYST REMOVAL face UPPER GASTROINTESTINAL ENDOSCOPY 09/27/2021 normal WISDOM TOOTH EXTRACTION CURRENT MEDICATIONS Previous Medications ALBUTEROL 108 (90 BASE) MCG/ACT INHALER Inhale 2 puffs every 6 hours as needed for wheezing or shortness of breath. CALCIPOTRIENE (DOVONEX) 0.005 % CREAM Apply topically 2 times daily. CLOBETASOL (TEMOVATE) 0.05 % CREAM Apply topically 2 times daily. GABAPENTIN (NEURONTIN) 600 MG TABLET Take 1 tablet (600 mg) by mouth 3 times daily. MELATONIN 5 MG TABLET Take 5 mg by mouth. MULTIPLE VITAMINS TABLET Take 1 tablet by mouth. PANTOPRAZOLE (PROTONIX) 40 MG EC TABLET Take 1 tablet (40 mg) by mouth every morning (before breakfast). ROSUVASTATIN (CRESTOR) 10 MG TABLET ALLERGIES Bee venom, Nickel, and Tramadol FAMILY HISTORY Family History Problem Relation Name Age of Onset Depression Sister Cancer Mother colon rectal cancer; dx after age 50 Other ([id number]) Mother alcoholism Other ([id number]) Father h/o rheumatic fever, cardiac arrest due to bee sting Other ([id number]) Sister agoraphobia SOCIAL HISTORY Social History Socioeconomic History Marital status: Tobacco Use Smoking status: Every Day Packs/day: 1.50 Types: Cigarettes Smokeless tobacco: Never Substance and Sexual Activity Alcohol use: Yes Drug use: No SCREENINGS PHYSICAL EXAM ED Triage Vitals [07/21/22 1600] Temp Heart Rate Resp BP 36.4 C (97.6 F) 104 20 (!) 135/101 SpO2 Temp Source Heart Rate Source Patient Position 92 % Temporal Monitor -- BP Location FiO2 (%) -- -- CONSTITUTIONAL: AOx4, no apparent distress, appears stated age, intoxicated HEAD: normocephalic, atraumatic EYES: PERRL, EOMI ENT: moist mucous membranes, uvula midline NECK: supple, symmetric BACK: symmetric LUNGS: clear to auscultation bilaterally CARDIOVASCULAR: regular rate and rhythm, no murmurs, rubs or gallops ABDOMEN: soft, moderate epigastric tenderness to palpation, non-distended with normal active bowel sounds : deferred NEUROLOGIC: MAEx4, no focal sensory or motor deficits MUSCULOSKELETAL: no clubbing, cyanosis or edema SKIN: no exposed rash DIAGNOSTIC RESULTS Procedures/EKG: EKG was reviewed by myself. Physician EKG interpretation can be found in [facility] RADIOLOGY (Per Emergency Physician): Interpretation per the Radiologist below, if available at the time of this note: CT abdomen pelvis w contrast Final Result No acute abdominal or pelvic findings to explain symptoms. Hepatic steatosis. Sigmoid diverticulosis. Report Dictated on Workstation: [id number] Electronically Signed By: Joon Foley Electronically Signed Date/Time: 07/21/2022 6:02 PM EDT ED BEDSIDE ULTRASOUND: Performed by ED Physician - none LABS: Labs Reviewed CBC WITH AUTO DIFFERENTIAL - Abnormal Result Value Auto WBC 6.2 RBC 4.77 Hemoglobin 16.0 Hematocrit 46.9 MCV 98.4 (*) MCH 33.5 MCHC 34.1 RDW 15.4 (*) Platelets 211 MPV 6.8 (*) nRBC 0.1 Neutrophils Relative 56.7 Lymphocytes Relative 31.1 Monocytes Relative 9.8 Eosinophils Relative 1.2 Basophils Relative 1.2 Neutrophils Absolute 3.5 Lymphocytes Absolute 1.9 Monocytes Absolute 0.6 Eosinophils Absolute 0.1 Basophils Absolute 0.1 COMPREHENSIVE METABOLIC PANEL - Abnormal SODIUM 136 POTASSIUM 4.1 CHLORIDE 101 CARBON DIOXIDE 24 ANION GAP 11 UREA NITROGEN 8 (*) CREATININE 0.85 GLUCOSE 98 CALCIUM 8.5 AST (SGOT) 56 (*) ALT 43 ALKALINE PHOSPHATASE 124 ALBUMIN 4.2 BILIRUBIN, TOTAL 0.5 TOTAL PROTEIN 7.4 eGFR >90.0 ETHANOL - Abnormal ETHANOL IN SER/PLAS 0.323 (*) Narrative: NOTE: This result is for medical treatment only. Analysis performed using non-forensic procedures. COMPLETE URINALYSIS - Abnormal Color, Urine Colorless Clarity, Urine Clear pH, Urine 5.0 Leukocytes, Urine Negative Nitrite, Urine Negative Protein, Urine Negative Glucose, Urine Normal Bilirubin, Urine Negative Ketones, Urine Negative Urobilinogen, Urine Normal Blood, Urine Negative SPECIFIC GRAVITY OF URINE (NUMERIC) 1.003 (*) SARS-COV-2, FLU A/B, AND RSV COMBO - Normal SARS-CoV-2 Not Detected Respiratory Syncytial Virus Not Detected Influenza A Not Detected Influenza B Not Detected Narrative: Methodology: real-time, RT-PCR The SARS-CoV-2, Flu A/B, and RSV Combo assay is intended for in vitro diagnostic use under the FDA Emergency Use Authorization (EUA). This test has not been FDA cleared or approved. In compliance with this authorization, please visit www.fda.gov/media/150454/download or www.fda.gov/media/272928/download to access the applicable information sheets. LIPASE - Normal LIPASE 209 TROPONIN I - Normal TROPONIN I <0.012 Narrative: Patients with high levels of Biotin oral intake (ie >5 mg/day) may have falsely decreased Troponin levels. PROTHROMBIN TIME - Normal PROTHROMBIN TIME 10.3 INR 0.9 COMPLETE URINALYSIS WITH REFLEX TO CULTURE Narrative: The following orders were created for panel order Urinalysis Complete with reflex to Culture. Procedure Abnormality Status --------- ------ Complete Urinalysis[[id number]] Abnormal Final result Please view results for these tests on the individual orders. DRUGS OF ABUSE AMPHETAMINE SCREEN Negative BARBITURATES SCREEN Negative BENZODIAZEPINE SCREEN Negative COCAINE METAB. SCREEN Negative METHADONE SCREEN Negative OPIATES SCREEN Negative OXYCODONE SCREEN Negative PHENCYCLIDINE SCREEN Negative Narrative: The expected value for all of the drugs listed above is Negative. The following drugs or drug groups have been screened for by Immunoassay at the following thresholds: Amphetamine class (1000 ng/mL) Barbiturates (200 ng/mL) Benzodiazepines (200 ng/mL) Cocaine (300 ng/mL) Methadone (300 ng/mL) Opiates (300 ng/mL) Oxycodone (100 ng/mL) PCP (25 ng/mL) NOTE: These results are for medical treatment only. Analysis performed using non-forensic procedures. POSITIVE results are NOT confirmed by a more specific alternative method unless requested. If confirmation is needed, request confirmation under separate order. BLOOD TYPE AND SCREEN GEL ABO Grouping A Antibody Screen NEG Rh Type POS All other labs were within normal range or not returned as of this dictation. EMERGENCY DEPARTMENT COURSE and DIFFERENTIAL DIAGNOSIS/MDM: Vitals: Vitals: 07/21/22 1600 07/21/221812 BP: (!) 135/101 126/79 Pulse: 104 95 Resp: 20 Temp: 36.4 C (97.6 F) TempSrc: Temporal SpO2: 92% EMERGENCY DEPARTMENT COURSE and DIFFERENTIAL DIAGNOSIS/MDM: Vitals: Vitals: 07/21/22 1600 07/21/221812 BP: (!) 135/101 126/79 Pulse: 104 95 Resp: 20 Temp: 36.4 C (97.6 F) TempSrc: Temporal SpO2: 92% The patient presented with a chief complaint of epigastric abdominal pain, hematemesis, alcoholism. Hematemesis started last night. Patient would also like to be detoxed from alcohol. The differential diagnosis associated with this patient's presentation includes alcohol intoxication, Lombardo's esophagus, gastritis, ulcerative disease, esophageal varices, pancreatitis, liver disease. Our workup consisted of ordering/reviewing, labs including CMP which is normal, CBC normal, cardiac work-up also initiated due to some chest discomfort, troponin was negative. EKG with no ischemic change. No leukocytosis or drop in hemoglobin. No elevation in PT/INR. Ethanol level markedly elevated 0.323. Urine drug screen is negative. Urinalysis is negative. Due to the hematemesis, patient was given 40 mg of IV Protonix. Patient has no history of esophageal varices so no octreotide was given. CT scan of the abdomen pelvis shows no acute process. Patient began to have mild withdrawal symptoms while in the emergency room, CIWA 14. Given 2 of IV Ativan for this. Due to the hematemesis, I do not feel the patient is appropriate for direct admission to the detox unit. I feel he would best benefit from a medical admission with a consultation to GI for endoscopy as well as consultation to addiction medicine for management of his alcohol withdrawals.. Diagnoses as of 07/21/221857 Hematemesis with nausea Alcohol withdrawal syndrome without complication (HCC) Diagnostic tests considered but not performed: External records reviewed: Inpatient notes prior detox and inpatient notes, prior endoscopic report reviewed Diagnostics interpreted by me: EKG(s) no ischemic changes Discussions with other clinicians: [place] [facility] conditions impacting care: Hypertension Social determinants of health affecting care: Alcoholism ED Medications managed: Medications albuterol 108 (90 Base) MCG/ACT inhaler 2 puff (has no administration in time range) gabapentin (Neurontin) tablet 600 mg (has no administration in time range) Thiamine Mononitrate (Vitamin B1) tablet 100 mg (has no administration in time range) folic acid (Folvite) tablet 1 mg (has no administration in time range) ondansetron ODT (Zofran-ODT) disintegrating tablet 4 mg (has no administration in time range) Or ondansetron (Zofran) injection 4 mg (has no administration in time range) polyethylene glycol (PEG) 3350 (Miralax) packet 17 g (has no administration in time range) LORazepam (Ativan) tablet 1 mg (has no administration in time range) Or LORazepam (Ativan) injection 1 mg (has no administration in time range) Or LORazepam (Ativan) tablet 2 mg (has no administration in time range) Or LORazepam (Ativan) injection 2 mg (has no administration in time range) Or LORazepam (Ativan) tablet 3 mg (has no administration in time range) Or LORazepam (Ativan) injection 3 mg (has no administration in time range) Or LORazepam (Ativan) tablet 4 mg (has no administration in time range) Or LORazepam (Ativan) injection 4 mg (has no administration in time range) pantoprazole (ProtoNix) injection 40 mg (40 mg IntraVENous Given 07/21/22 164) morphine sulfate (PF) injection 4 mg (4 mg IntraVENous Given 07/21/22 164) ondansetron (Zofran) injection 4 mg (4 mg IntraVENous Given 07/21/22 164) iopamidol (Isovue-370) 76 % injection 75 mL (75 mL IntraVENous Given 07/21/22 1752) LORazepam (Ativan) injection 2 mg (2 mg IntraVENous Given 07/21/22 182) CONSULTS: IP CONSULT TO GI IP CONSULT TO ADDICTION MEDICINE PROCEDURES: Unless otherwise noted below, none Procedures Patients symptoms are consistent with sepsis, severe sepsis, or septic shock (If yes use .sepsiscoremeasure): FINAL IMPRESSION 1. Hematemesis with nausea 2. Alcohol withdrawal syndrome without complication (HCC) DISPOSITION/PLAN admit PATIENT REFERRED TO: No follow-up provider specified. DISCHARGE MEDICATIONS: New Prescriptions No medications on file (Comment: Please note this report has been produced using speech recognition software and may contain errors related to that system including errors in grammar, punctuation, and spelling, as well as words and phrases that may be inappropriate. If there are any questions or concerns please feel free to contact the dictating provider for clarification.) Arsenio Villalta DO (electronically signed) Emergency Medicine Provider Arsenio Villalta DO 07/21/22 190 documented in this encounter [facility] 07-21-2022 Physician Emergency department Note EMERGENCY DEPARTMENT ENCOUNTER Pt Name: Maria De Jesus Hogan Birthdate 1965 Date of evaluation: 07/21/2022 ED Provider: Arsenio Villalta DO CHIEF COMPLAINT Chief Complaint Patient presents with Alcohol Problem Pt states that he is a daily drinker, usually 8-9 tall boys a day. Pt has been vomiting x1 week and states he has been getting intoxicated from drinking but is not keeping down what he normally would. 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 Also reports BRB in his vomit. HISTORY OF PRESENT ILLNESS (Location/Symptom, Timing/Onset, Context/Setting, Quality, Duration, Modifying Factors, Severity) Note limiting factors. I wore appropriate PPE for the entirety of this encounter. HPI Maria De Jesus Hogan is a 56 y.o. male who presents to the emergency department with hematemesis. Patient has a history of esophagitis and Lombardo's esophagus in August 2021 when he presented to the emergency room and was admitted for hematemesis secondary to his chronic alcoholism. States he was detoxed as well during that admission but quickly began drinking again. States he drinks daily. States he drinks multiple beers per day. Last drink was just prior to arrival. States the hematemesis started last night. States the blood is bright red. No history of varices. Has some moderate mount of pain to his epigastrium. Also states he has intermittent chest pain described as sharp. Patient denies any other lower abdominal pain, fevers, chills. States he has had some shortness of breath off and on for weeks. Nursing Notes were reviewed. REVIEW OF SYSTEMS 14 systems reviewed and otherwise acutely negative except as in the [place]. PAST MEDICAL HISTORY Past Medical History: Diagnosis Date Alcohol abuse Alcohol dependence with withdrawal (HCC) 08/31/2019 Alcohol intoxication without use disorder, uncomplicated (HCC) 10/01/2019 Alcohol withdrawal, uncomplicated (HCC) 08/31/2019 Alcohol withdrawal, with unspecified complication (HCC) 10/02/2019 Alcohol withdrawal, with unspecified complication (HCC) 10/02/2019 Alcoholism (CMS/HCC) (HCC) Anxiety Cerebral artery occlusion with cerebral infarction (CMS/HCC) (HCC) Cerebrovascular disease Depression Hypertension Insomnia SURGICAL HISTORY Past Surgical History: Procedure Laterality Date COLONOSCOPY 06/10/2020 EGD/Dr Madison/[facility] REMOVAL face UPPER GASTROINTESTINAL ENDOSCOPY 09/27/2021 normal WISDOM TOOTH EXTRACTION CURRENT MEDICATIONS Previous Medications ALBUTEROL 108 (90 BASE) MCG/ACT INHALER Inhale 2 puffs every 6 hours as needed for wheezing or shortness of breath. CALCIPOTRIENE (DOVONEX) 0.005 % CREAM Apply topically 2 times daily. CLOBETASOL (TEMOVATE) 0.05 % CREAM Apply topically 2 times daily. GABAPENTIN (NEURONTIN) 600 MG TABLET Take 1 tablet (600 mg) by mouth 3 times daily. MELATONIN 5 MG TABLET Take 5 mg by mouth. MULTIPLE VITAMINS TABLET Take 1 tablet by mouth. PANTOPRAZOLE (PROTONIX) 40 MG EC TABLET Take 1 tablet (40 mg) by mouth every morning (before breakfast). ROSUVASTATIN (CRESTOR) 10 MG TABLET ALLERGIES Bee venom, Nickel, and Tramadol FAMILY HISTORY Family History Problem Relation Name Age of Onset Depression Sister Cancer Mother colon rectal cancer; dx after age 50 Other (31653) Mother alcoholism Other (47998) Father h/o rheumatic fever, cardiac arrest due to bee sting Other ([id number]) Sister agoraphobia SOCIAL HISTORY Social History Socioeconomic History Marital status: Tobacco Use Smoking status: Every Day Packs/day: 1.50 Types: Cigarettes Smokeless tobacco: Never Substance and Sexual Activity Alcohol use: Yes Drug use: No SCREENINGS PHYSICAL EXAM ED Triage Vitals [07/21/22 1600] Temp Heart Rate Resp BP 36.4 C (97.6 F) 104 20 (!) 135/101 SpO2 Temp Source Heart Rate Source Patient Position 92 % Temporal Monitor -- BP Location FiO2 (%) -- -- CONSTITUTIONAL: AOx4, no apparent distress, appears stated age, intoxicated HEAD: normocephalic, atraumatic EYES: PERRL, EOMI ENT: moist mucous membranes, uvula midline NECK: supple, symmetric BACK: symmetric LUNGS: clear to auscultation bilaterally CARDIOVASCULAR: regular rate and rhythm, no murmurs, rubs or gallops ABDOMEN: soft, moderate epigastric tenderness to palpation, non-distended with normal active bowel sounds : deferred NEUROLOGIC: MAEx4, no focal sensory or motor deficits MUSCULOSKELETAL: no clubbing, cyanosis or edema SKIN: no exposed rash DIAGNOSTIC RESULTS Procedures/EKG: EKG was reviewed by myself. Physician EKG interpretation can be found in [facility] RADIOLOGY (Per Emergency Physician): Interpretation per the Radiologist below, if available at the time of this note: CT abdomen pelvis w contrast Final Result No acute abdominal or pelvic findings to explain symptoms. Hepatic steatosis. Sigmoid diverticulosis. Report Dictated on Workstation: [id number] Electronically Signed By: Joon Foley Electronically Signed Date/Time: 07/21/2022 6:02 PM EDT ED BEDSIDE ULTRASOUND: Performed by ED Physician - none LABS: Labs Reviewed CBC WITH AUTO DIFFERENTIAL - Abnormal Result Value Auto WBC 6.2 RBC 4.77 Hemoglobin 16.0 Hematocrit 46.9 MCV 98.4 (*) MCH 33.5 MCHC 34.1 RDW 15.4 (*) Platelets 211 MPV 6.8 (*) nRBC 0.1 Neutrophils Relative 56.7 Lymphocytes Relative 31.1 Monocytes Relative 9.8 Eosinophils Relative 1.2 Basophils Relative 1.2 Neutrophils Absolute 3.5 Lymphocytes Absolute 1.9 Monocytes Absolute 0.6 Eosinophils Absolute 0.1 Basophils Absolute 0.1 COMPREHENSIVE METABOLIC PANEL - Abnormal SODIUM 136 POTASSIUM 4.1 CHLORIDE 101 CARBON DIOXIDE 24 ANION GAP 11 UREA NITROGEN 8 (*) CREATININE 0.85 GLUCOSE 98 CALCIUM 8.5 AST (SGOT) 56 (*) ALT 43 ALKALINE PHOSPHATASE 124 ALBUMIN 4.2 BILIRUBIN, TOTAL 0.5 TOTAL PROTEIN 7.4 eGFR >90.0 ETHANOL - Abnormal ETHANOL IN SER/PLAS 0.323 (*) Narrative: NOTE: This result is for medical treatment only. Analysis performed using non-forensic procedures. COMPLETE URINALYSIS - Abnormal Color, Urine Colorless Clarity, Urine Clear pH, Urine 5.0 Leukocytes, Urine Negative Nitrite, Urine Negative Protein, Urine Negative Glucose, Urine Normal Bilirubin, Urine Negative Ketones, Urine Negative Urobilinogen, Urine Normal Blood, Urine Negative SPECIFIC GRAVITY OF URINE (NUMERIC) 1.003 (*) SARS-COV-2, FLU A/B, AND RSV COMBO - Normal SARS-CoV-2 Not Detected Respiratory Syncytial Virus Not Detected Influenza A Not Detected Influenza B Not Detected Narrative: Methodology: real-time, RT-PCR The SARS-CoV-2, Flu A/B, and RSV Combo assay is intended for in vitro diagnostic use under the FDA Emergency Use Authorization (EUA). This test has not been FDA cleared or approved. In compliance with this authorization, please visit www.fda.gov/media/234873/download or www.fda.gov/media/788181/download to access the applicable information sheets. LIPASE - Normal LIPASE 209 TROPONIN I - Normal TROPONIN I <0.012 Narrative: Patients with high levels of Biotin oral intake (ie >5 mg/day) may have falsely decreased Troponin levels. PROTHROMBIN TIME - Normal PROTHROMBIN TIME 10.3 INR 0.9 COMPLETE URINALYSIS WITH REFLEX TO CULTURE Narrative: The following orders were created for panel order Urinalysis Complete with reflex to Culture. Procedure Abnormality Status --------- ------ Complete Urinalysis[[id number]] Abnormal Final result Please view results for these tests on the individual orders. DRUGS OF ABUSE AMPHETAMINE SCREEN Negative BARBITURATES SCREEN Negative BENZODIAZEPINE SCREEN Negative COCAINE METAB. SCREEN Negative METHADONE SCREEN Negative OPIATES SCREEN Negative OXYCODONE SCREEN Negative PHENCYCLIDINE SCREEN Negative Narrative: The expected value for all of the drugs listed above is Negative. The following drugs or drug groups have been screened for by Immunoassay at the following thresholds: Amphetamine class (1000 ng/mL) Barbiturates (200 ng/mL) Benzodiazepines (200 ng/mL) Cocaine (300 ng/mL) Methadone (300 ng/mL) Opiates (300 ng/mL) Oxycodone (100 ng/mL) PCP (25 ng/mL) NOTE: These results are for medical treatment only. Analysis performed using non-forensic procedures. POSITIVE results are NOT confirmed by a more specific alternative method unless requested. If confirmation is needed, request confirmation under separate order. BLOOD TYPE AND SCREEN GEL ABO Grouping A Antibody Screen NEG Rh Type POS All other labs were within normal range or not returned as of this dictation. EMERGENCY DEPARTMENT COURSE and DIFFERENTIAL DIAGNOSIS/MDM: Vitals: Vitals: 07/21/22 1600 07/21/221812 BP: (!) 135/101 126/79 Pulse: 104 95 Resp: 20 Temp: 36.4 C (97.6 F) TempSrc: Temporal SpO2: 92% EMERGENCY DEPARTMENT COURSE and DIFFERENTIAL DIAGNOSIS/MDM: Vitals: Vitals: 07/21/22 1600 07/21/221812 BP: (!) 135/101 126/79 Pulse: 104 95 Resp: 20 Temp: 36.4 C (97.6 F) TempSrc: Temporal SpO2: 92% The patient presented with a chief complaint of epigastric abdominal pain, hematemesis, alcoholism. Hematemesis started last night. Patient would also like to be detoxed from alcohol. The differential diagnosis associated with this patient's presentation includes alcohol intoxication, Lombardo's esophagus, gastritis, ulcerative disease, esophageal varices, pancreatitis, liver disease. Our workup consisted of ordering/reviewing, labs including CMP which is normal, CBC normal, cardiac work-up also initiated due to some chest discomfort, troponin was negative. EKG with no ischemic change. No leukocytosis or drop in hemoglobin. No elevation in PT/INR. Ethanol level markedly elevated 0.323. Urine drug screen is negative. Urinalysis is negative. Due to the hematemesis, patient was given 40 mg of IV Protonix. Patient has no history of esophageal varices so no octreotide was given. CT scan of the abdomen pelvis shows no acute process. Patient began to have mild withdrawal symptoms while in the emergency room, CIWA 14. Given 2 of IV Ativan for this. Due to the hematemesis, I do not feel the patient is appropriate for direct admission to the detox unit. I feel he would best benefit from a medical admission with a consultation to GI for endoscopy as well as consultation to addiction medicine for management of his alcohol withdrawals.. Diagnoses as of 07/21/22 1858 Hematemesis with nausea Alcohol withdrawal syndrome without complication (HCC) Diagnostic tests considered but not performed: External records reviewed: Inpatient notes prior detox and inpatient notes, prior endoscopic report reviewed Diagnostics interpreted by me: EKG(s) no ischemic changes Discussions with other clinicians: [place]mitting [place] [facility] [place] conditions impacting care: Hypertension Social determinants of health affecting care: Alcoholism ED Medications managed: Medications albuterol 108 (90 Base) MCG/ACT inhaler 2 puff (has no administration in time range) gabapentin (Neurontin) tablet 600 mg (has no administration in time range) Thiamine Mononitrate (Vitamin B1) tablet 100 mg (has no administration in time range) folic acid (Folvite) tablet 1 mg (has no administration in time range) ondansetron ODT (Zofran-ODT) disintegrating tablet 4 mg (has no administration in time range) Or ondansetron (Zofran) injection 4 mg (has no administration in time range) polyethylene glycol (PEG) 3350 (Miralax) packet 17 g (has no administration in time range) LORazepam (Ativan) tablet 1 mg (has no administration in time range) Or LORazepam (Ativan) injection 1 mg (has no administration in time range) Or LORazepam (Ativan) tablet 2 mg (has no administration in time range) Or LORazepam (Ativan) injection 2 mg (has no administration in time range) Or LORazepam (Ativan) tablet 3 mg (has no administration in time range) Or LORazepam (Ativan) injection 3 mg (has no administration in time range) Or LORazepam (Ativan) tablet 4 mg (has no administration in time range) Or LORazepam (Ativan) injection 4 mg (has no administration in time range) pantoprazole (ProtoNix) injection 40 mg (40 mg IntraVENous Given 07/21/22 164) morphine sulfate (PF) injection 4 mg (4 mg IntraVENous Given 07/21/22 164) ondansetron (Zofran) injection 4 mg (4 mg IntraVENous Given 07/21/22 164) iopamidol (Isovue-370) 76 % injection 75 mL (75 mL IntraVENous Given 07/21/22 175) LORazepam (Ativan) injection 2 mg (2 mg IntraVENous Given 07/21/22 182) CONSULTS: IP CONSULT TO GI IP CONSULT TO ADDICTION MEDICINE PROCEDURES: Unless otherwise noted below, none Procedures Patients symptoms are consistent with sepsis, severe sepsis, or septic shock (If yes use .sepsiscoremeasure): FINAL IMPRESSION 1. Hematemesis with nausea 2. Alcohol withdrawal syndrome without complication (HCC) DISPOSITION/PLAN admit PATIENT REFERRED TO: No follow-up provider specified. DISCHARGE MEDICATIONS: New Prescriptions No medications on file (Comment: Please note this report has been produced using speech recognition software and may contain errors related to that system including errors in grammar, punctuation, and spelling, as well as words and phrases that may be inappropriate. If there are any questions or concerns please feel free to contact the dictating provider for clarification.) Arsenio Villalta DO (electronically signed) Emergency Medicine Provider Arsenio Villalta DO 07/21/22 190 [facility] 07-20-2022 Telephone encounter Note Letter sent. [facility] 07-16-2022 Telephone encounter Note Pt is also requesting refills of pantoprazole (ProtoNix) 40 MG EC tablet and calcipotriene (Dovonex) 0.005 % cream. Pt advised that there should be refills of the meds at his pharmacy. Ordering provider: Dr. Rasheed Date of last office visit: 06/12/2022 Date of next office visit: n/a Updated/Validated preferred pharmacy: Yes [facility] [id number] [address] Patient instructed to contact the pharmacy prior to picking up the medication: Yes (1) Medication name: albuterol 108 (90 Base) MCG/ACT inhaler Medication dosage: 108 (90 Base) MCG/ ACT Monthly quantity needed: n/a How many day supply requestin days Medication route: inhalation (inhaler) Medication administration time(s): Inhale 2 puffs into the lungs every 6 hours as needed for Wheezing If taking medication PRN, reason for taking medication: Wheezing If this is a controlled substance do you receive this or any other controlled medication from any other doctor or facility: No Date of last refill (see medication tab): 10/03/2021 (2) Medication name: gabapentin (Neurontin) 600 MG tablet Medication dosage: 600 mg (Miligrams Monthly quantity needed: 90 How many day supply requestin days Medication route: oral (PO) Medication administration time(s): 3 times a day (TID) If taking medication PRN, reason for taking medication: N/A If this is a controlled substance do you receive this or any other controlled medication from any other doctor or facility: No Date of last refill (see medication tab): 06/12/2022 [facility] 07-16-2022 Miscellaneous Notes Pt is also requesting refills of pantoprazole (ProtoNix) 40 MG EC tablet and calcipotriene (Dovonex) 0.005 % cream. Pt advised that there should be refills of the meds at his pharmacy. Ordering provider: Dr. Rasheed Date of last office visit: 06/12/2022 Date of next office visit: n/a Updated/Validated preferred pharmacy: Yes [facility] [id number] [phone] Patient instructed to contact the pharmacy prior to picking up the medication: Yes (1) Medication name: albuterol 108 (90 Base) MCG/ACT inhaler Medication dosage: 108 (90 Base) MCG/ ACT Monthly quantity needed: n/a How many day supply requestin days Medication route: inhalation (inhaler) Medication administration time(s): Inhale 2 puffs into the lungs every 6 hours as needed for Wheezing If taking medication PRN, reason for taking medication: Wheezing If this is a controlled substance do you receive this or any other controlled medication from any other doctor or facility: No Date of last refill (see medication tab): 10/03/2021 (2) Medication name: gabapentin (Neurontin) 600 MG tablet Medication dosage: 600 mg (Miligrams Monthly quantity needed: 90 How many day supply requestin days Medication route: oral (PO) Medication administration time(s): 3 times a day (TID) If taking medication PRN, reason for taking medication: N/A If this is a controlled substance do you receive this or any other controlled medication from any other doctor or facility: No Date of last refill (see medication tab): 06/12/2022 documented in this encounter [facility] 07-16-2022 Telephone encounter Note Last seen:06/12/22 Scheduled:n/a [facility] 07-16-2022 Miscellaneous Notes Last seen:06/12/22 Scheduled:n/a documented in this encounter [facility] 07-13-2022 Telephone encounter Note Phone OOS [facility] 07-12-2022 Telephone encounter Note Phone OOS [facility] 07-11-2022 Telephone encounter Note No [facility] 07-11-2022 Telephone encounter Note Is there more to #3? [facility] 07-11-2022 Telephone encounter Note 1. X-ray of the shoulder is normal #2 Sugar is elevated add an A1c. Cholesterol is improving however still elevated. Low-fat diet and exercise recommend medication called Crestor let me know if okay to send in. [facility] 07-11-2022 Telephone encounter Note Can not get though on patients phone. Please read results to pt if he calls in. [facility] 07-11-2022 Miscellaneous Notes Can not get though on patients phone. Please read results to pt if he calls in. Xray of the back shows arthritis, if patient in still in pain I would recommend physical theray. Let me know if patient would like. documented in this encounter [facility] 07-11-2022 Telephone encounter Note Xray of the back shows arthritis, if patient in still in pain I would recommend physical theray. Let me know if patient would like. [facility] 06-12-2022 History of Present illness Narrative Images from the original note were not included. [facility] [address] [place] [address] Dept: [phone] Dept Loc: [phone] Reason for Visit: Annual Exam and Shoulder Pain Assessment and Plan 1. Elevated liver enzymes patient to stay away from alcohol and Tylenol. - pantoprazole (ProtoNix) 40 MG EC tablet; Take 1 tablet (40 mg) by mouth every morning (before breakfast)., Starting Sat06/12/2022, Normal - CBC auto differential - Comprehensive metabolic panel - Lipid panel - PSA Screening 2. Chronic left shoulder pain not drive or operate heavy machinery while on this medication. - gabapentin (Neurontin) 600 MG tablet; Take 1 tablet (600 mg) by mouth 3 times daily., Starting Sat06/12/2022, Until Mounika 07/12/2022, Normal - XR shoulder 2+ views left - PSA Screening 3. Psoriasis. Moisturize discussed moisturizer cream such as Aveeno. Started patient on Dovonex. Referral to dermatology. - calcipotriene (Dovonex) 0.005 % cream; Apply topically 2 times daily., Starting Sat06/12/2022, Normal - [facility] Dermatology 4. Lumbar back pain [facility] physical therapy - XR lumbar spine complete 4+ views 5. Screening for colon cancer - [facility] General Surgery - Sotero Madsen MD - PSA Screening 6. Chronic pain of both shoulders - XR shoulder 2+ views right 7. Alcohol abuse Again I offered patient to get set up for referral to [facility] at this time he would like to hold off. He is interested in possibly getting involved with a group through [place] for alcohol. He states that he will call and get this scheduled I strongly encouraged this to get done. current treatment plan is effective, no change in therapy, orders and follow up as documented in EMR, lab results reviewed with patient, repeat labs ordered prior to next appointment, reviewed compliance with lifestyle measures, reviewed diet, exercise and weight control, reviewed medications and side effects in detail Return visit in 3 months. Subjective Shoulder Pain this is a 56-year-old gentleman with multiple medical problems. Patient has a history of alcohol abuse. He states he significantly cut down he and I discussed possibly staying in alcohol addiction physician at this time patient would like to hold off. He understands the risks. He states he will also possibly join an outpatient intense treatment in [place]. He states he will call and get this scheduled if he decides to get it done. Advised encourage patient. Patient also complains of lower back pain. He states he is done exercise 4. When the pain gets severe he does take gabapentin. He does have numbness and tingling at times with it. He also complains of left shoulder and right shoulder pain. He states the he was in penitentiary for approximately 6 months he slept on a hard cot. He felt that this made it worse. He had no trauma. He states his off-and-on pain. He also complains of his psoriasis. It comes and goes. He has not seen dermatology recently for this. He had been on Dovonex in the past. Review of Systems Allergies Allergen Reactions Bee Venom Swelling Nickel Rash Tramadol Nausea And Vomiting Other reaction(s): AOF Outpatient Medications Prior to Visit Medication Sig Dispense Refill albuterol 108 (90 Base) MCG/ACT inhaler Inhale 2 puffs every 6 hours as needed. gabapentin (Neurontin) 600 MG tablet Take 600 mg by mouth 3 times daily. pantoprazole (ProtoNix) 40 MG EC tablet Take 40 mg by mouth. No facility-administered medications prior to visit. Patient Active Problem List Diagnosis Elevated liver enzymes Hematemesis Cigarette smoker Hepatic steatosis Severe alcohol use disorder (HCC) Anxiety Alcohol withdrawal syndrome with complication (HCC) Depression Insomnia Elevated liver function tests Esophagitis Lombardo's esophagus determined by endoscopy Lombardo esophagus Chronic alcohol abuse Atelectasis Hyponatremia Pneumatosis coli UGIB (upper gastrointestinal bleed) Hypochloremia Transaminitis Past Medical History: Diagnosis Date Alcohol abuse Alcohol dependence with withdrawal (HCC) 08/31/2019 Alcohol intoxication without use disorder, uncomplicated (HCC) 10/01/2019 Alcohol withdrawal, uncomplicated (HCC) 08/31/2019 Alcohol withdrawal, with unspecified complication (HCC) 10/02/2019 Alcohol withdrawal, with unspecified complication (HCC) 10/02/2019 Alcoholism (CMS/HCC) (HCC) Anxiety Cerebral artery occlusion with cerebral infarction (CMS/HCC) (HCC) Cerebrovascular disease Depression Hypertension Insomnia Social History Tobacco Use Smoking status: Every Day Packs/day: 1.50 Types: Cigarettes Smokeless tobacco: Never Substance Use Topics Alcohol use: Yes Past Surgical History: Procedure Laterality Date COLONOSCOPY 06/10/2020 EGD/Dr Madison/AMANDA CYST REMOVAL face UPPER GASTROINTESTINAL ENDOSCOPY 09/27/2021 normal WISDOM TOOTH EXTRACTION Family History Problem Relation Name Age of Onset Depression Sister Cancer Mother colon rectal cancer; dx after age 50 Other ([id number]) Mother alcoholism Other (29060) Father h/o rheumatic fever, cardiac arrest due to bee sting Other (43923) Sister agoraphobia Health Maintenance Topic Date Due Hepatitis B Vaccines (1 of 3 - 3-dose series) Never done HIV Screening Never done Colorectal Cancer Screening Never done Hepatitis A Vaccines (1 of 2 - Risk 2-dose series) Never done MMR Vaccines (1 of 1 - Standard series) Never done DTaP/Tdap/Td Vaccines (1 - Tdap) Never done Zoster Vaccines (1 of 2) Never done Pneumococcal Vaccine: Pediatrics (0 to 5 Years) and At-Risk Patients (6 to 64 Years) (2 - PCV) 01/24/2018 COVID-19 Vaccine (4 - Booster for Pfizer series) 05/04/2021 Influenza Vaccine (1) 11/30/2021 Lipid Panel 09/01/2025 Hepatitis C Screening Completed HIB Vaccines Aged Out IPV Vaccines Aged Out Meningococcal Vaccine Aged Out Rotavirus Vaccines Aged Out HPV Vaccines Aged Out Objective BP 118/74 Pulse (!) 116 Ht 5' 11 (1.803 m) Wt 223 lb (101 kg) SpO2 94% BMI 31.10 kg/m Physical Exam Vitals and nursing note reviewed. Constitutional: Appearance: Normal appearance. HENT: Head: Normocephalic and atraumatic. Nose: No congestion or rhinorrhea. Mouth/Throat: Mouth: Mucous membranes are moist. Pharynx: Oropharynx is clear. No posterior oropharyngeal erythema. Eyes: Extraocular Movements: Extraocular movements intact. Conjunctiva/sclera: Conjunctivae normal. Pupils: Pupils are equal, round, and reactive to light. Cardiovascular: Pulses: Normal pulses. Heart sounds: Normal heart sounds. No murmur heard. Pulmonary: Effort: Pulmonary effort is normal. No respiratory distress. Breath sounds: Normal breath sounds. No wheezing. Abdominal: General: Abdomen is flat. Bowel sounds are normal. Palpations: Abdomen is soft. Tenderness: There is no abdominal tenderness. Musculoskeletal: General: No swelling. Right shoulder: Tenderness present. Decreased range of motion. Cervical back: Normal range of motion. Lumbar back: Tenderness present. Negative right straight leg raise test and negative left straight leg raise test. Skin: General: Skin is warm and dry. Neurological: General: No focal deficit present. Mental Status: He is alert and oriented to person, place, and time. Mental status is at baseline. Psychiatric: Mood and Affect: Mood normal. Data Reviewed and Summarized Labs: Lab Results Component Value Date WBC 4.7 10/25/2021 HGB 15.7 10/25/2021 PSA 0.397 09/01/2020 INR 1.0 09/26/2021 Lab Results Component Value Date NA 139 10/25/2021 K 4.2 10/25/2021 CL 103 10/25/2021 CO2 26 10/25/2021 BUN 2 (L) 10/25/2021 CREATININE 0.62 10/25/2021 GLUCOSE 89 10/25/2021 CALCIUM 8.8 10/25/2021 PROT 7.2 10/25/2021 BILITOT 0.4 10/25/2021 ALKPHOS 105 10/25/2021 AST 79 (H) 10/25/2021 @GLUCOSELAB@ Lab Results Component Value Date CHOL 285 (A) 09/01/2020 CHOL 262 (A) 02/14/2019 Lab Results Component Value Date TRIG 120 09/01/2020 TRIG 162 (A) 02/14/2019 Lab Results Component Value Date HDL 68 (H) 09/01/2020 HDL 43 02/14/2019 No results found for: LDLCALC No results found for: VLDL Lab Results Component Value Date CHOLHDLRATIO 4 09/01/2020 CHOLHDLRATIO 6 02/14/2019 Imaging/Testing: XR CHEST PORTABLE Narrative: Patient Name: MARIA DE JESUS HOGAN Diagnostic Radiology ACCESSION EXAM DATE/TIME PROCEDURE ORDERING PROVIDER [id number] 09/26/2021 19:48 EDT CR Chest Portable [id number] -DIPESH BECKMAN CPT code 75430 Reason For Exam (CR Chest Portable) epigastric pain Report CHEST SINGLE VIEW CLINICAL INFORMATION: Vomiting, epigastric pain, status post two packs a day A frontal view of the chest was obtained. No acute pulmonary disease is noted. The cardiovascular silhouette is within normal limits. Impression: No acute pulmonary disease. Report Dictated on --- Final --- Dictating Physician: MD GAY WILLIAM Signed Date and Time: 09/26/2021 7:58 pm Signed by: MD GAY WILLIAM Transcribed Date and Time: 09/26/2021 7:59 OUTSIDE IMAGING SCAN Ordered by an unspecified provider. Lynda Rasheed MD documented in this encounter [facility] 09-29-2021 Note Hospitalist Discharg e Summary Maria De Jesus Hogan : 1965 Admit date: 09/26/2021 Discharge date: 09/29/2021 Admitting Physician: Sherin Salcido MD Primary Care Physician: Lynda Rasheed MD Visit Status: Admission Code Status: Prior Discharge Diagnoses: Alcoholic withdrawals. GI bleed/hematemesis. Mild hyponatremia. Elevated LFTs. Insomnia. 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 Gastroenterology recommended Protonix twice daily and follow-up with GI as an outpatient to follow-up on Lombardo's esophagus. Also given his a significant alcoholism, patient was undergoing active detox by addiction medicine. Despite of explaining the risk, patient decided to leave the hospital AGAINST MEDICAL ADVICE. Signed: Redd Teixeira MD Division of Hospitalist Medicine [place] [place], 2:37 PM [facility] 09-29-2021 History of Present illness Narrative [facility] Attending GI Progress Note SUBJECTIVE: Pain free, wants to leave Medications Current Facility-Administered Medications Medication Dose Route Frequency Provider Last Rate Last Admin melatonin tablet 5 mg 5 mg Oral Nightly Redd Teixeira MD 5 mg at 09/28/21 1943 sodium chloride flush 0.9 % injection 5-40 mL 5-40 mL IntraVENous 2 times per day Sherin Salcido MD 10 mL at 09/27/21 0148 sodium chloride flush 0.9 % injection 5-40 mL 5-40 mL IntraVENous PRN Sherin Salcido MD 0.9 % sodium chloride infusion IntraVENous PRN Sherin Salcido MD ondansetron (ZOFRAN-ODT) disintegrating tablet 4 mg 4 mg Oral Q8H PRN Sherin Salcido MD Or ondansetron (ZOFRAN) injection 4 mg 4 mg IntraVENous Q6H PRN Sherin Salcido MD 4 mg at 09/28/21 1020 acetaminophen (TYLENOL) tablet 650 mg 650 mg Oral Q6H PRN Sherin Salcido MD Or acetaminophen (TYLENOL) suppository 650 mg 650 mg Rectal Q6H PRN Sherin Salcido MD thiamine tablet 100 mg 100 mg Oral Daily Sherin Salcido MD 100 mg at 09/29/21 0808 LORazepam (ATIVAN) tablet 1 mg 1 mg Oral Q1H PRN Sherin Salcido MD Or LORazepam (ATIVAN) injection 1 mg 1 mg IntraVENous Q1H PRAnum Salcido MD 1 mg at 09/28/21 1020 Or LORazepam (ATIVAN) tablet 2 mg 2 mg Oral Q1H PRN Sherin Salcido MD Or LORazepam (ATIVAN) injection 2 mg 2 mg IntraVENous Q1H PRAnum Salcido MD 2 mg at 09/28/21 2343 Or LORazepam (ATIVAN) tablet 3 mg 3 mg Oral Q1H PRN Sherin Salcido MD Or LORazepam (ATIVAN) injection 3 mg 3 mg IntraVENous Q1H PRAnum Salcido MD 3 mg at 09/27/21 0604 Or LORazepam (ATIVAN) tablet 4 mg 4 mg Oral Q1H PRN Sherin Salcido MD Or LORazepam (ATIVAN) injection 4 mg 4 mg IntraVENous Q1H PRAnum Salcido MD folic acid (FOLVITE) tablet 1 mg 1 mg Oral Daily Sherin Salcido MD 1 mg at 09/29/21 0808 nicotine (NICODERM CQ) 21 MG/24HR 1 patch 1 patch TransDERmal Daily Sherin Salcido MD 1 patch at 09/29/21 0808 0.9 % sodium chloride infusion IntraVENous Continuous Sherin Salcido MD 100 mL/hr at 09/28/21 0803 New Bag at 09/28/21 0803 PHENobarbital (LUMINAL) tablet 100 mg 100 mg Oral Q4H Bryan Rodriguez MD 100 mg at 09/29/21 0808 pantoprazole (PROTONIX) tablet 40 mg 40 mg Oral QAM AC Katherine Gotti MD 40 mg at 09/29/21 0336 OBJECTIVE VITALS: BP (!) 158/109 Pulse (!) 104 Temp 97.9 F (36.6 C) (Temporal) Resp 16 Ht 5' 11 (1.803 m) Wt 203 lb 11.3 oz (92.4 kg) SpO2 94% BMI 28.41 kg/m TEMPERATURE: Current - Temp: 97.9 F (36.6 C); Max - Temp Av.5 F (36.4 C) Min: 97 F (36.1 C) Max: 97.9 F (36.6 C) RESPIRATIONS RANGE: Resp Av.3 Min: 16 Max: 20 PULSE RANGE: Pulse Av.5 Min: 79 Max: 104 BLOOD PRESSURE RANGE: Systolic (24hrs), Av , Min:136 , Max:164 ; Diastolic (24hrs), Av, Min:96, Max:112 PULSE OXIMETRY RANGE: SpO2 Av.5 % Min: 94 % Max: 96 % 24HR INTAKE/OUTPUT: Intake/Output Summary (Last 24 hours) at 09/29/2021 1050 Last data filed at 09/29/2021 0821 Gross per 24 hour Intake 320 ml Output Net 320 ml GENERAL: Pleasant and NAD. HEENT: NCAT, PERRLA, EOMI, Scleral anicteric. Oropharhynx clear with no erythema or exudate. Neck supple, no cervical LAD or thyromegaly. CV: RRR, NL S1/S2, no murmurs. Distal pulses palpable and equal b/l. LUNGS: CTA b/l. Normal percussion and palpation. No W/R/R. ABD: + BS, soft, non-tender and non-distended. No hepatosplenomegaly. No mass felt. No rebound or guarding. EXT: No C/C/E. No muscle atrophy. SKIN: No skin lesion or breakdown. NEURO: A&O x 3, CN II-XII grossly intact. No asterixis. Data Recent blood work, radiologic study and endoscopic study were reviewed with the patient. CBC: Recent Labs 09/26/21193709/27/21 0142 09/29/21 0243 WBC 4.2 -- 4.0 HGB 16.8 14.7 14.5 HCT 45.9 43.0 42.3 PLT 189 -- 139* HEPATIC: Recent Labs 09/26/21193709/29/21 0243 AST 159* 133* ALT 156* 140* BILITOT 0.6 0.9 ALKPHOS 120 95 LIPASE/AMYLASE: Recent Labs 09/26/211937 LIPASE 135 LACTATE: Recent Labs 09/26/21193709/27/21 0353 LACTA 3.2* 1.4 BNP: No results for input(s): BNP in the last 72 hours. INR: Recent Labs 09/26/211937 INR 1.0 ASSESSMENT AND PLAN 1. Hematemesis - resolved, no melena, hbg stable. Continue PPI, likely mw(healing) 2. Elevated liver tests - repeat mildly elevated. shhoul have opt viral immune serologies, etc. Can get outpatient Will sign off, available if needed Images from the original note were not included. Hospitalist Progress Note 09/28/[id number]: Please page me ([phone]) for patient care issues. [phone]: Please page [facility] night Hospitalist for any issues. Subjective: Admit Date: 09/26/2021 PCP: Lynda Rasheed MD Room#: 248/2481 Interval History: Patient is a sitting on the bed, denies any chest pain shortness of breath or palpitations. Complaining of lack of sleep. No other significant overnight issues. ADULT DIET; Regular Patient Vitals for the past 96 hrs (Last 3 readings): Weight 09/27/21 0045 203 lb 11.3 oz (92.4 kg) 24HR INTAKE/OUTPUT: Intake/Output Summary (Last 24 hours) at 09/28/2021 1458 Last data filed at 09/27/2021 1831 Gross per 24 hour Intake 480 ml Output Net 480 ml Past Medical History: Diagnosis Date Alcohol abuse Alcohol dependence with withdrawal (HCC) 08/31/2019 Alcohol intoxication without use disorder, uncomplicated (HCC) 10/01/2019 Alcohol withdrawal, uncomplicated (HCC) 08/31/2019 Alcohol withdrawal, with unspecified complication (HCC) 10/02/2019 Alcohol withdrawal, with unspecified complication (HCC) 10/02/2019 Alcoholism (HCC) Anxiety Cerebral artery occlusion with cerebral infarction (HCC) Cerebrovascular disease Depression Hypertension Insomnia LABS: CBC: Recent Labs 09/26/21193709/27/21 0142 WBC 4.2 -- RBC 4.95 -- HGB 16.8 14.7 HCT 45.9 43.0 MCV 92.7 -- RDW 13.3 -- PLT 189 -- BMP: Recent Labs 09/26/211937 NA 133* K 4.0 CL 94* CO2 24 BUN 5* CREATININE 0.64 GLUCOSE 95 CALCIUM 9.4 ANIONGAP 15* LIVER PROFILE: Recent Labs 09/26/211937 AST 159* ALT 156* BILITOT 0.6 ALKPHOS 120 LABALBU 4.6 PROT 7.5 PT/INR: Recent Labs 09/26/211937 PROTIME 10.3 INR 1.0 CARDIAC ENZYMES: Recent Labs 09/26/211937 TROPONINI <0.012 Procalcitonin: No results found for: PROCAL COVID-19 PCR: No results for input(s): COVID19 in the last 72 hours. Objective: Vitals: BP (!) 153/98 Pulse 83 Temp 97.8 F (36.6 C) (Temporal) Resp 16 Ht 5' 11 (1.803 m) Wt 203 lb 11.3 oz (92.4 kg) SpO2 95% BMI 28.41 kg/m Pulse Ox: SpO2 Av % Min: 91 % Max: 96 % Supplemental O2: O2 Flow Rate (L/min): 2 L/min General appearance: No apparent distress, appears stated age and cooperative with exam HEENT: Normal cephalic, atraumatic without obvious deformity. Pupils equal, round, and reactive to light. Extra ocular muscles intact. Conjunctivae/corneas clear. Neck: Supple, with full range of motion. No jugular venous distention. Trachea midline. No lymphadenopathy. Respiratory: Normal respiratory effort. Clear to auscultation, bilaterally without Rales/Wheezes/Rhonchi. Cardiovascular: Regular rate and rhythm with normal S1/S2 without murmurs, rubs or gallops. Abdomen: Soft, non-tender, non-distended with normal bowel sounds. No rebound or guarding. Musculoskeletal: No clubbing, cyanosis or edema bilaterally. Full range of motion without deformity. Skin: Skin color, texture, turgor normal. No rashes or lesions. Neurologic: Neurovascularly intact without any focal sensory/motor deficits. Cranial nerves: II-XII intact, grossly non-focal. Medications: sodium chloride sodium chloride 100 mL/hr at 09/28/21 0803 melatonin 5 mg Oral Nightly sodium chloride flush 5-40 mL IntraVENous 2 times per day thiamine 100 mg Oral Daily folic acid 1 mg Oral Daily nicotine 1 patch TransDERmal Daily PHENobarbital 100 mg Oral Q4H pantoprazole 40 mg Oral QAM AC Assessment Alcoholic withdrawals. GI bleed/hematemesis. Mild hyponatremia. Elevated LFTs. Insomnia. Plan: S/p EGD on 09/27, showed esophagitis and Lombardo's esophagus. No signs of obvious bleeding. GI recommended PPI twice daily, follow-up EGD as an outpatient. Patient is going through alcohol withdrawals. Currently patient is on phenobarbital and CIWA protocol. Addiction medicine managing. Sodium levels stable. Follow-up LFTs ordered. Melatonin as needed for sleep. -am labs, replace lytes prn -increase activity -DVT prophylaxis: [] Lovenox [] Heparin [] SCDs [x] Encourage ambulation [] Already on Anticoagulation Advance Directive: Full Code Discharge planning: TBD Redd Teixeira MD Division of Hospitalist Medicine [place] [place]: [phone] [facility] Attending GI Progress Note SUBJECTIVE: Pain resolved, no further hematemesis Medications Current Facility-Administered Medications Medication Dose Route Frequency Provider Last Rate Last Admin sodium chloride flush 0.9 % injection 5-40 mL 5-40 mL IntraVENous 2 times per day Sherin Salcido MD 10 mL at 09/27/21 0148 sodium chloride flush 0.9 % injection 5-40 mL 5-40 mL IntraVENous PRN Sherin Salcido MD 0.9 % sodium chloride infusion IntraVENous PRN Sherin Salcido MD ondansetron (ZOFRAN-ODT) disintegrating tablet 4 mg 4 mg Oral Q8H PRN Sherin Salcido MD Or ondansetron (ZOFRAN) injection 4 mg 4 mg IntraVENous Q6H PRN Sherin Salcido MD 4 mg at 09/28/21 1020 acetaminophen (TYLENOL) tablet 650 mg 650 mg Oral Q6H PRN Sherin Salcido MD Or acetaminophen (TYLENOL) suppository 650 mg 650 mg Rectal Q6H PRN Sherin Salcido MD thiamine tablet 100 mg 100 mg Oral Daily Sherin Salcido MD 100 mg at 09/28/21 0801 LORazepam (ATIVAN) tablet 1 mg 1 mg Oral Q1H PRN Sherin Salcido MD Or LORazepam (ATIVAN) injection 1 mg 1 mg IntraVENous Q1H PRAnum Salcido MD 1 mg at 09/28/21 1020 Or LORazepam (ATIVAN) tablet 2 mg 2 mg Oral Q1H PRN Sherin Salcido MD Or LORazepam (ATIVAN) injection 2 mg 2 mg IntraVENous Q1H PRAnum Salcido MD 2 mg at 09/27/21 0822 Or LORazepam (ATIVAN) tablet 3 mg 3 mg Oral Q1H PRAnum Salcido MD Or LORazepam (ATIVAN) injection 3 mg 3 mg IntraVENous Q1H PRAnum Salcido MD 3 mg at 09/27/21 0604 Or LORazepam (ATIVAN) tablet 4 mg 4 mg Oral Q1H PRN Sherin Salcido MD Or LORazepam (ATIVAN) injection 4 mg 4 mg IntraVENous Q1H PRN Sherin Salcido MD folic acid (FOLVITE) tablet 1 mg 1 mg Oral Daily Sherin Salcido MD 1 mg at 09/28/21 0801 nicotine (NICODERM CQ) 21 MG/24HR 1 patch 1 patch TransDERmal Daily Sherin Salcido MD 1 patch at 09/28/21 0801 0.9 % sodium chloride infusion IntraVENous Continuous Sherin Salcido MD 100 mL/hr at 09/28/21 0803 New Bag at 09/28/21 0803 PHENobarbital (LUMINAL) tablet 100 mg 100 mg Oral Q4H Bryan Rodriguez MD 100 mg at 09/28/21 0801 pantoprazole (PROTONIX) tablet 40 mg 40 mg Oral QAM AC Katherine Gotti MD 40 mg at 09/28/21 0630 OBJECTIVE VITALS: BP (!) 136/96 Pulse 79 Temp 97.4 F (36.3 C) (Temporal) Resp 16 Ht 5' 11 (1.803 m) Wt 203 lb 11.3 oz (92.4 kg) SpO2 96% BMI 28.41 kg/m TEMPERATURE: Current - Temp: 97.4 F (36.3 C); Max - Temp Av.7 F (36.5 C) Min: 97.1 F (36.2 C) Max: 99.2 F (37.3 C) RESPIRATIONS RANGE: Resp Av Min: 14 Max: 18 PULSE RANGE: Pulse Av.8 Min: 79 Max: 114 BLOOD PRESSURE RANGE: Systolic (24hrs), Av , Min:136 , Max:164 ; Diastolic (24hrs), Av, Min:86, Max:116 PULSE OXIMETRY RANGE: SpO2 Av.6 % Min: 91 % Max: 100 % 24HR INTAKE/OUTPUT: Intake/Output Summary (Last 24 hours) at 09/28/2021 1205 Last data filed at 09/27/2021 1831 Gross per 24 hour Intake 930 ml Output Net 930 ml GENERAL: Pleasant and NAD. HEENT: NCAT, PERRLA, EOMI, Scleral anicteric. Oropharhynx clear with no erythema or exudate. Neck supple, no cervical LAD or thyromegaly. CV: RRR, NL S1/S2, no murmurs. Distal pulses palpable and equal b/l. LUNGS: CTA b/l. Normal percussion and palpation. No W/R/R. ABD: + BS, soft, non-tender and non-distended. No hepatosplenomegaly. No mass felt. No rebound or guarding. EXT: No C/C/E. No muscle atrophy. SKIN: No skin lesion or breakdown. NEURO: A&O x 3, CN II-XII grossly intact. No asterixis. Data Recent blood work, radiologic study and endoscopic study were reviewed with the patient. CBC: Recent Labs 09/26/21193709/27/21 0142 WBC 4.2 -- HGB 16.8 14.7 HCT 45.9 43.0 PLT 189 -- HEPATIC: Recent Labs 09/26/211937 AST 159* ALT 156* BILITOT 0.6 ALKPHOS 120 LIPASE/AMYLASE: Recent Labs 09/26/211937 LIPASE 135 LACTATE: Recent Labs 09/26/21193709/27/21 0353 LACTA 3.2* 1.4 BNP: No results for input(s): BNP in the last 72 hours. INR: Recent Labs 09/26/211937 INR 1.0 ASSESSMENT AND PLAN 1. Hematemesis - resolved, no melena, hbg stable. Continue PPI, likely mw(healing) 2. Elevated liver tests - repeat, further w/u if remains elevated CD Progress note: Chief complaint My note Patient continues to be monitored by chemical dependency services. Patient remains on phenobarbital 100 mg IV every 4 hours, lorazepam as needed. In reviewing the records, the patient did require three 1 mg doses of lorazepam last evening. He also received 1 mg dose at 10 AM today. When I met with the patient, he did state that he felt a little bit better in reference to withdrawal symptomatology, but continues to experience tremors sweats shakes. No GI complaints. Of note GI evaluation did show small erosion at the GE junction. GI post op note Pre-operative Diagnosis: hematemesis Post-operative Diagnosis: 1. Esophagitis/erosion - GE junction 2. Lombardo's esophagus Procedure: EGD Anesthesia: MAC Surgeons/Assistants: KATHERINE GOTTI MD Estimated Blood Loss: less than 50 Complications: None Specimens: Was Not Obtained Findings: Small erosion at junction - likely healing mw tear. ssbe - previously bx. Ok for regular diet. PPI qd. Social History Socioeconomic History Marital status: Spouse name: None Number of children: None Years of education: None Highest education level: None Occupational History None Tobacco Use Smoking status: Current Every Day Smoker Packs/day: 1.50 Years: 17.00 Pack years: 25.50 Types: Cigarettes Smokeless tobacco: Never Used Vaping Use Vaping Use: Never used Substance and Sexual Activity Alcohol use: Yes Comment: 25oz cans beer 9-10 per day Drug use: No Sexual activity: None Comment: live with Other Topics Concern None Social History Narrative None Social Determinants of Health Financial Resource Strain: Difficulty of Paying Living Expenses: Not on file Food Insecurity: Worried About Running Out of Food in the Last Year: Not on file Ran Out of Food in the Last Year: Not on file Transportation Needs: Lack of Transportation (Medical): Not on file Lack of Transportation (Non-Medical): Not on file Physical Activity: Days of Exercise per Week: Not on file Minutes of Exercise per Session: Not on file Stress: Feeling of Stress : Not on file Social Connections: Frequency of Communication with Friends and Family: Not on file Frequency of Social Gatherings with Friends and Family: Not on file Attends Synagogue Services: Not on file Active Member of Clubs or Organizations: Not on file Attends Club or Organization Meetings: Not on file Marital Status: Not on file Intimate Partner Violence: Fear of Current or Ex-Partner: Not on file Emotionally Abused: Not on file Physically Abused: Not on file Sexually Abused: Not on file Housing Stability: Unable to Pay for Housing in the Last Year: Not on file Number of Places Lived in the Last Year: Not on file Unstable Housing in the Last Year: Not on file Objective Current Facility-Administered Medications Medication Dose Route Frequency Provider Last Rate Last Admin sodium chloride flush 0.9 % injection 5-40 mL 5-40 mL IntraVENous 2 times per day Sherin Salcido MD 10 mL at 09/27/21 0148 sodium chloride flush 0.9 % injection 5-40 mL 5-40 mL IntraVENous PRAnum Salcido MD 0.9 % sodium chloride infusion IntraVENous PRN Sherin Salcido MD ondansetron (ZOFRAN-ODT) disintegrating tablet 4 mg 4 mg Oral Q8H PRN Sherin Salcido MD Or ondansetron (ZOFRAN) injection 4 mg 4 mg IntraVENous Q6H PRN Sherin Salcido MD 4 mg at 09/28/21 1020 acetaminophen (TYLENOL) tablet 650 mg 650 mg Oral Q6H PRN Sherin Salcido MD Or acetaminophen (TYLENOL) suppository 650 mg 650 mg Rectal Q6H PRN Sherin Salcido MD thiamine tablet 100 mg 100 mg Oral Daily Sherin Salcido MD 100 mg at 09/28/21 0801 LORazepam (ATIVAN) tablet 1 mg 1 mg Oral Q1H PRN Sherin Salcido MD Or LORazepam (ATIVAN) injection 1 mg 1 mg IntraVENous Q1H PRAnum Salcido MD 1 mg at 09/28/21 1020 Or LORazepam (ATIVAN) tablet 2 mg 2 mg Oral Q1H PRN Sherin Salcido MD Or LORazepam (ATIVAN) injection 2 mg 2 mg IntraVENous Q1H PRAnum Salcido MD 2 mg at 09/27/21 0822 Or LORazepam (ATIVAN) tablet 3 mg 3 mg Oral Q1H PRN Sherin Salcido MD Or LORazepam (ATIVAN) injection 3 mg 3 mg IntraVENous Q1H PRN Sherin Salcido MD 3 mg at 09/27/21 0604 Or LORazepam (ATIVAN) tablet 4 mg 4 mg Oral Q1H PRN Sherin Salcido MD Or LORazepam (ATIVAN) injection 4 mg 4 mg IntraVENous Q1H PRAnum Salcido MD folic acid (FOLVITE) tablet 1 mg 1 mg Oral Daily Sherin Salcido MD 1 mg at 09/28/21 0801 nicotine (NICODERM CQ) 21 MG/24HR 1 patch 1 patch TransDERmal Daily Sherin Salcido MD 1 patch at 09/28/21 0801 0.9 % sodium chloride infusion IntraVENous Continuous Sherin Salcido MD 100 mL/hr at 09/28/21 0803 New Bag at 09/28/21 0803 PHENobarbital (LUMINAL) tablet 100 mg 100 mg Oral Q4H Bryan Rodriguez MD 100 mg at 09/28/21 0801 pantoprazole (PROTONIX) tablet 40 mg 40 mg Oral QAM MICHA Gotti MD 40 mg at 09/28/21 0630 CBC: Lab Results Component Value Date/Time WBC 4.2 09/26/2021 07:38 PM RBC 4.95 09/26/2021 07:38 PM HGB 14.7 09/27/2021 01:42 AM HCT 43.0 09/27/2021 01:42 AM MCV 92.7 09/26/2021 07:38 PM MCH 33.9 09/26/2021 07:38 PM MCHC 36.6 09/26/2021 07:38 PM RDW 13.3 09/26/2021 07:38 PM PLT 189 09/26/2021 07:38 PM MPV 8.8 09/26/2021 07:38 PM CMP: Lab Results Component Value Date/Time NA 133 09/26/2021 07:38 PM K 4.0 09/26/2021 07:38 PM CL 94 09/26/2021 07:38 PM CO2 24 09/26/2021 07:38 PM BUN 5 09/26/2021 07:38 PM CREATININE 0.64 09/26/2021 07:38 PM GLUCOSE 95 09/26/2021 07:38 PM PROT 7.5 09/26/2021 07:38 PM LABALBU 4.6 09/26/2021 07:38 PM CALCIUM 9.4 09/26/2021 07:38 PM BILITOT 0.6 09/26/2021 07:38 PM ALKPHOS 120 09/26/2021 07:38 PM AST 159 09/26/2021 07:38 PM ALT 156 09/26/2021 07:38 PM Physical Exam BP (!) 141/86 Pulse 87 Temp 97.3 F (36.3 C) (Temporal) Resp 16 Ht 5' 11 (1.803 m) Wt 203 lb 11.3 oz (92.4 kg) SpO2 96% BMI 28.41 kg/m Patient remains a bed ridden. He is flushed, diaphoretic moderate tremors persist. He is oriented x4, but very restless, ill that he is. There are no auditory, tactile or visual disturbances. He is pleased that he is able to eat regular food at this point in time. Assessment / Plan: We will continue detox regimen monitor closely. As patient stabilizes will investigate treatment options. He appears to be an excellent candidate for the outpatient BRYAN RODRIGUEZ MD, MD 09/28/2021 at 10:42 AM Over 51% of 35 minutes were spent evaluating the patient, entering orders, coordinating care with the treatment team, and creating a progress note. Nutrition rescreen completed. Patient assigned a level 1. Social Work consulted to follow for possible rehab need or treatment resources. Patient is being followed closely by Addiction Medicine. He has attended out patient treatment in the past at [facility] per Dr. Stokes notes. Patient is actively in withdrawal at this time per doctors notes. Will continue to follow as needed and patient permits. POST ENDOSCOPY PROCEDURE TRANSFER REPORT Procedure completed: EGD Findings:mild esophagitis at distal esophagus/Barretts esophagus Specimens obtained: none Medications administered: 220 propofol and 2 mg versed Additional Info: states mild H/A ,denies other pain ,abdomen soft,vss/o22l/nc continued o2 sat on room air 90-91%.. 100% with o2 For additional Questions please call Endoscopy at [phone]. Thank You! documented in this encounter [facility] Work Phone: 06-09-2021 Note [facility] Discharge Summary with Discharge DayProgress Note and Transition Note Maria De Jesus Hogan : 1965 ADMIT DATE: 06/06/2021 DISCHARGE DATE: 06/09/2021 PRIMARYCARE PHYSICIAN: Lynda Rasheed MD VISIT STATUS: Admission CODE STATUS: Full Code DISCHARGE DIAGNOSES: Principal Problem: UGIB (upper gastrointestinal bleed) Active Problems: Severe alcohol use disorder (HCC) Hepatic steatosis Alcohol withdrawal syndrome without complication (HCC) Hyponatremia Hypochloremia Transaminitis Atelectasis Pneumatosis coli Resolved Problems: * No resolved hospital problems. * HOSPITAL COURSE: Very pleasant 55 yr old M with PMHx severe alcohol use disorder who presented to ED with hematemesis after a coughing spell. In ER, BP was normal and HR was in the low 100's. Initial lab work was significant for Na 133, ALT/AST 197/191 and alcohol level of 0.364. CT abdomen revealed intramural gas near the cecum and ascending colon, consistent with pneumatosis coli. At that time, he was admitted for further evaluation and treatment. ? ADM, GI and general surgery were consulted. He was treated with IVF's, phenobarbital and ativan. EGD was obtained morning of 06/08, which showed findings consistent with Lombardo's esophagus and a single bleeding angioectasia in the stomach (treated with argon plasma coagulation). Amlodipine was started for hypertension and his PPI was switched to protonix. He was discharged in stable condition. 1. UGIB - 2/2 bleeding angioectasia -s/p APC 2. Alcohol intoxication with alcohol withdrawal 3. Lombardo's esophagus 4. Hyponatremia 5. Lactic acidosis - resolved 6. transaminitis 7. Hepatic steatosis 8. Pneumatosis coli - benign abdomen, no intervention required 9. Wheezing 10. Tobacco abuse 11. Chronic low back pain -> the reason for his neurontin per notes from PCP DAY OF DISCHARGE: Review of Systems No complaints Patient Vitals for the past 24 hrs: BP Temp Temp src Pulse Resp SpO2 06/09/21 1158 (!) 156/122 97.8 ?F (36.6 ?C) Temporal 88 18 96 % 06/09/21 0926 ? 18 99 % 06/09/21 0822 (!) 179/115 97.4 ?F (36.3 ?C) Temporal 88 20 100 % 06/09/21 0340 (!) 162/99 96.7 ?F (35.9 ?C) Temporal 78 16 91 % 06/08/21 2327 (!) 155/90 97.5 ?F (36.4 ?C) Temporal 84 16 95 % 06/08/21 1957 (!) 137/91 96.9 ?F (36.1 ?C) Temporal 90 16 93 % 06/08/21 1618 (!) 147/95 97.9 ?F (36.6 ?C) Temporal 98 ? 96 % 06/08/21 1518 ? 96 % Average, Min, and Max forlast 24 hours Vitals: TEMPERATURE: Temp Av.4 ?F (36.3 ?C) Min: 96.7 ?F (35.9 ?C) Max: 97.9 ?F (36.6 ?C) RESPIRATIONS RANGE: Resp Av.3 Min: 16 Max: 20 PULSE RANGE: Pulse Av.7 Min: 78 Max: 98 BLOOD PRESSURE RANGE: Systolic (24hrs), Av , Min:137 , Max:179 ; Diastolic (24hrs), Av, Min:90, Max:122 PULSE OXIMETRYRANGE: SpO2 Av.8 % Min: 91 % Max: 100 % No intake/output data recorded. Physical Exam Constitutional: General: He is not in acute distress. Appearance: He is not ill-appearing. Pulmonary: Effort: Pulmonary effort is normal. Psychiatric: Behavior: Behavior normal. PROCEDURES: EGD CONSULTANTS: Dr Bojorquez - general surgery Dr Mcekon - addiction medicine Dr Wei - gastroenterology DISCHARGE MEDICATIONS: Significant Medication Changes: Amlodipine added Omeprazole changed to pantoprazole Steroid taper for wheezing Medication List START taking these medications amLODIPine 5 MG tablet Commonly known as: NORVASC Take 1 tablet by mouth daily Start taking on: June 10, 2021 pantoprazole 40 MG tablet Commonly known as: PROTONIX Take 1 tablet by mouth every morning (before breakfast) Start taking on: June 10, 2021 predniSONE 10 MG tablet Commonly known as: DELTASONE Take 2 tabs daily for 3 days, then 1 tabs daily for 3 days, then 0.5 tab daily for 3 days CONTINUE taking these medications albuterol sulfate HFA 108 (90 Base) MCG/ACT inhaler Commonly known as: ProAir HFA Inhale 2 puffs into the lungs every 6 hours as needed for Wheezing calcipotriene 0.005 % ointment Commonly known as: DOVONEX Apply topically 2 times daily. clobetasol 0.05 % cream Commonly known as: TEMOVATE Apply topically 2 times daily. gabapentin 600 MG tablet Commonly known as: NEURONTIN Take 1 tablet by mouth 3 times daily for 30 days. rosuvastatin 10 MG tablet Commonly known as: Crestor Take 1 tablet by mouth nightly STOP taking these medications naproxen 500 MG tablet Commonly known as: Naprosyn omeprazole 20 MG delayed release capsule Commonly known as: PRILOSEC Where to Get Your Medications These medications were sent to [facility] [address] - [phone] - [phone] [address] [address] ? amLODIPine 5 MG tablet ? pantoprazole 40 MG tablet ? predniSONE 10 MG tablet DIET: regular ACTIVITY: resum (more content not included)... [facility] 06-09-2021 Hospital Discharge instructions Lauren Alexander RN - 06/09/2021 3:05 PM EST As tolerated Lauren Alexander RN - 06/09/2021 3:05 PM EST Good nutrition is important when healing from an illness, injury, or surgery. Follow any nutrition recommendations given to you during your hospital stay. If you were given an oral nutrition supplement while in the hospital, continue to take this supplement at home. You can take it with meals, in-between meals, and/or before bedtime. These supplements can be purchased at most local grocery stores, pharmacies, and chain [employer]-stores. If you have any questions about your diet or nutrition, call the hospital and ask for the dietitian. Jonatan Michaels MD - 06/09/2021 Images from the original note were not included. [facility] PROGRAMS Addiction Medicine Intensive Outpatient Program [facility]: [phone] [place]: [phone] [place]: [phone] [place]: [phone] Behavioral Health Intensive Outpatient Program [facility]: [phone] [place]: [phone] [facility] [place]: [phone] [place]: [phone] Partial Hospitalization Program [facility]: [phone] Tra[facility] Stress [facility]: [phone] [facility]: [phone] (must enroll in IOP first) Alcoholics Anonymous Meetings [email or web address] The following attachments cannot be sent through Care Everywhere.9 Ways to Cut Back on Drinking: Quick List (Rwandan)naltrexone (injection) (Rwandan)documented in this encounter [facility] [employer] Phone: 06-09-2021 Hospital course Narrative Images from the original note were not included. [facility] Discharge Summary with Discharge DayProgress Note and Transition Note Maria De Jesus Hogan : 1965 ADMIT DATE: 06/06/2021 DISCHARGE DATE: 06/09/2021 PRIMARYCARE PHYSICIAN: Lynda Rasheed MD VISIT STATUS: Admission CODE STATUS: Full Code DISCHARGE DIAGNOSES: Principal Problem: UGIB (upper gastrointestinal bleed) Active Problems: Severe alcohol use disorder (HCC) Hepatic steatosis Alcohol withdrawal syndrome without complication (HCC) Hyponatremia Hypochloremia Transaminitis Atelectasis Pneumatosis coli Resolved Problems: * No resolved hospital problems. * HOSPITAL COURSE: Very pleasant 55 yr old M with PMHx severe alcohol use disorder who presented to ED with hematemesis after a coughing spell. In ER, BP was normal and HR was in the low 100's. Initial lab work was significant for Na 133, ALT/AST 197/191 and alcohol level of 0.364. CT abdomen revealed intramural gas near the cecum and ascending colon, consistent with pneumatosis coli. At that time, he was admitted for further evaluation and treatment. ADM, GI and general surgery were consulted. He was treated with IVF's, phenobarbital and ativan. EGD was obtained morning of 06/08, which showed findings consistent with Lombardo's esophagus and a single bleeding angioectasia in the stomach (treated with argon plasma coagulation). Amlodipine was started for hypertension and his PPI was switched to protonix. He was discharged in stable condition. 1. UGIB - 2/2 bleeding angioectasia -s/p APC 2. Alcohol intoxication with alcohol withdrawal 3. Lombardo's esophagus 4. Hyponatremia 5. Lactic acidosis - resolved 6. transaminitis 7. Hepatic steatosis 8. Pneumatosis coli - benign abdomen, no intervention required 9. Wheezing 10. Tobacco abuse 11. Chronic low back pain -> the reason for his neurontin per notes from PCP DAY OF DISCHARGE: Review of Systems No complaints Patient Vitals for the past 24 hrs: BP Temp Temp src Pulse Resp SpO2 06/09/21 1158 (!) 156/122 97.8 F (36.6 C) Temporal 88 18 96 % 06/09/21 0926 18 99 % 06/09/21 0822 (!) 179/115 97.4 F (36.3 C) Temporal 88 20 100 % 06/09/21 0340 (!) 162/99 96.7 F (35.9 C) Temporal 78 16 91 % 06/08/21 2327 (!) 155/90 97.5 F (36.4 C) Temporal 84 16 95 % 06/08/21 1957 (!) 137/91 96.9 F (36.1 C) Temporal 90 16 93 % 06/08/21 1618 (!) 147/95 97.9 F (36.6 C) Temporal 98 96 % 06/08/21 1518 96 % Average, Min, and Max forlast 24 hours Vitals: TEMPERATURE: Temp Av.4 F (36.3 C) Min: 96.7 F (35.9 C) Max: 97.9 F (36.6 C) RESPIRATIONS RANGE: Resp Av.3 Min: 16 Max: 20 PULSE RANGE: Pulse Av.7 Min: 78 Max: 98 BLOOD PRESSURE RANGE: Systolic (24hrs), Av , Min:137 , Max:179 ; Diastolic (24hrs), Av, Min:90, Max:122 PULSE OXIMETRYRANGE: SpO2 Av.8 % Min: 91 % Max: 100 % No intake/output data recorded. Physical Exam Constitutional: General: He is not in acute distress. Appearance: He is not ill-appearing. Pulmonary: Effort: Pulmonary effort is normal. Psychiatric: Behavior: Behavior normal. PROCEDURES: EGD CONSULTANTS: Dr Bojorquez - general surgery Dr Mckeon - addiction medicine Dr Wei - gastroenterology DISCHARGE MEDICATIONS: Significant Medication Changes: Amlodipine added Omeprazole changed to pantoprazole Steroid taper for wheezing Medication List START taking these medications amLODIPine 5 MG tablet Commonly known as: NORVASC Take 1 tablet by mouth daily Start taking on: June 10, 2021 pantoprazole 40 MG tablet Commonly known as: PROTONIX Take 1 tablet by mouth every morning (before breakfast) Start taking on: June 10, 2021 predniSONE 10 MG tablet Commonly known as: DELTASONE Take 2 tabs daily for 3 days, then 1 tabs daily for 3 days, then 0.5 tab daily for 3 days CONTINUE taking these medications albuterol sulfate HFA 108 (90 Base) MCG/ACT inhaler Commonly known as: ProAir HFA Inhale 2 puffs into the lungs every 6 hours as needed for Wheezing calcipotriene 0.005 % ointment Commonly known as: DOVONEX Apply topically 2 times daily. clobetasol 0.05 % cream Commonly known as: TEMOVATE Apply topically 2 times daily. gabapentin 600 MG tablet Commonly known as: NEURONTIN Take 1 tablet by mouth 3 times daily for 30 days. rosuvastatin 10 MG tablet Commonly known as: Crestor Take 1 tablet by mouth nightly STOP taking these medications naproxen 500 MG tablet Commonly known as: Naprosyn omeprazole 20 MG delayed release capsule Commonly known as: PRILOSEC Where to Get Your Medications These medications were sent to [facility] [address] - [phone] - F [phone] [address] [address] amLODIPine 5 MG tablet pantoprazole 40 MG tablet predniSONE 10 MG tablet DIET: regular ACTIVITY: resume regular activity SIGNIFICANT DIAGNOSTIC STUDIES: CT abd/pelvis: 1. Intramural gas near the cecum and ascending colon, compatible with pneumatosis coli. 2. Hepatic steatosis. 3. Additional chronic findings as above. COMPLEXITY OF FOLLOW UP: [x] Moderate Complexity: follow up within 7-14 calendar days (64107) [] Severe Complexity: follow up within 7 calendar days (22788) FOLLOW UP TESTING, PENDING RESULTS ORREFERRALS AT TRANSITIONAL CARE VISIT: [] Yes [x] No DISPOSITION: home FACILITY/HOME CARE AGENCY NAME: n/a Follow up with Lynda Rasheed MD scheduled Notification (telephone encounter) to PCP initiated: [x] Yes [] No INSTRUCTIONS TO MA/SW: Please call patient on day after discharge (must document patient contacted within 2 business days of discharge). FOLLOW UP QUESTIONS FOR MA/SW: 1. Did you get medications filled and takingthem as instructed from discharge? 2. Are you following your discharge instructions from your hospital stay? 3. Please confirm patient is scheduled for a follow up appointment within the above time frame. DISCHARGE TIME: > 30 minutes documented in this encounter [facility] Work Phone: 06-09-2021 History of Present illness Narrative Images from the original note were not included. Addiction Medicine Inpatient Progress Note Patient: Maria De Jesus Hogan Chief Complaint Patient presents with Alcohol Intoxication Hematemesis Rectal Bleeding Problem List: Principal Problem: UGIB (upper gastrointestinal bleed) Active Problems: Alcohol use disorder, moderate, dependence (HCC) Hepatic steatosis Hyponatremia Hypochloremia Transaminitis Atelectasis Pneumatosis coli Resolved Problems: * No resolved hospital problems. * Subjective Last 4 CIWA scores per RN assessments: 2 - 4 - 3 - 3 Interim History: Friendly, but minimal insight/judgement as it relates to his alcohol addiction BP remains elevated No additional ativan required for withdrawal mgmt Review of Systems: Review of Systems Constitutional: Positive for diaphoresis. HENT: Negative. Respiratory: Negative. Cardiovascular: Negative. Gastrointestinal: Negative. Musculoskeletal: Negative. Skin: Negative. Neurological: Negative. Psychiatric/Behavioral: Negative. All other systems reviewed and are negative. Objective Physical Exam: Vitals: 06/09/21 0340 06/09/21 0822 06/09/21 0926 06/09/21 1158 BP: (!) 162/99 (!) 179/115 (!) 156/122 Pulse: 78 88 88 Resp: 16 18 18 Temp: 96.7 F (35.9 C) 97.4 F (36.3 C) 97.8 F (36.6 C) TempSrc: Temporal Temporal Temporal SpO2: 91% 100% 99% 96% Weight: Height: Physical Exam Vitals and nursing note reviewed. Constitutional: Appearance: Normal appearance. HENT: Head: Normocephalic and atraumatic. Mouth/Throat: Mouth: Mucous membranes are dry. Eyes: General: No scleral icterus. Extraocular Movements: Extraocular movements intact. Cardiovascular: Rate and Rhythm: Normal rate and regular rhythm. Pulmonary: Effort: Pulmonary effort is normal. Abdominal: General: Abdomen is flat. Musculoskeletal: General: Normal range of motion. Skin: General: Skin is warm. Neurological: General: No focal deficit present. Mental Status: He is alert and oriented to person, place, and time. Motor: Tremor present. Psychiatric: Attention and Perception: Attention normal. Mood and Affect: Mood and affect normal. Medications: amLODIPine 5 mg Oral Daily sodium chloride flush 5-40 mL IntraVENous 2 times per day predniSONE 20 mg Oral Daily Followed by [START ON 06/11/2021] predniSONE 15 mg Oral Daily Followed by [START ON 06/14/2021] predniSONE 10 mg Oral Daily Followed by [START ON 06/17/2021] predniSONE 5 mg Oral Daily ipratropium-albuterol 1 ampule Inhalation BID pantoprazole 40 mg Oral QAM AC PHENobarbital 64.8 mg Oral Q6H gabapentin 600 mg Oral TID rosuvastatin 10 mg Oral Nightly thiamine mononitrate 100 mg Oral TID folic acid 1 mg Oral Daily multivitamin 1 tablet Oral Daily sodium chloride (PF) 10 mL IntraVENous BID sodium chloride flush 3 mL IntraVENous Q8H sodium chloride (PF) 10 mL IntraVENous Daily sodium chloride flush, sodium chloride, albuterol sulfate HFA, sodium chloride flush, sodium chloride, ondansetron OR ondansetron, polyethylene glycol, acetaminophen OR acetaminophen, sodium chloride flush, sodium chloride, LORazepam OR LORazepam OR LORazepam OR LORazepam OR LORazepam OR LORazepam OR LORazepam OR LORazepam Recent Imaging: CT Abdomen Pelvis W Contrast Result Date: 06/06/2021 [id number] Tom[facility] ACCESSION EXAM DATE/TIME PROCEDURE ORDERING PROVIDER [id number] 06/06/2021 17:[address] Abdomen/Pelvis w/ IV [id number] CATALINO ROTH Contrast (IV Onl CPT code 58437 [id number] Reason For Exam (CT Abdomen/Pelvis w/ IV Contrast (IV Onl) abd pain, ugib Report EXAMINATION: CT of the abdomen and pelvis with IV contrast. EXAM DATE & TIME: 06/06/2021 5:53 PM EST INDICATION: abd pain, ugib ADDITIONAL INFORMATION: 55-year-old male with acute abdominal pain and upper GI bleeding presents for evaluation COMPARISON: None LIMITATIONS: Evaluation of the hollow viscera is limited due to the lack of oral contrast. TECHNIQUE: Contiguous multiplanar 3 mm images were obtained from the levels of the lung bases through the pelvis during dynamic infusion of 75 ml of intravenous Isovue 370. Images were reformatted in coronal and sagittal projections using the raw CT data and were interpreted in conjunction with the axial images to render the findings listed below. Before infusion of intravenous contrast, radiology personnel investigated the possibility of an allergic history and any history of reaction to iodinated contrast material. FINDINGS: Included images of the lower thorax: There is bandlike scarring/atelectasis in the right middle lobe and near the right lung base. No focal consolidation. Hepatobiliary: There is diffuse fatty metamorphosis of the liver. No enhancing hepatic lesion is seen. No intrahepatic biliary ductal dilation. Gallbladder appears normal. Spleen: Unremarkable. Pancreas: Unremarkable. Adrenal glands: Unremarkable. Kidneys, ureters and bladder: No hydronephrosis or nephrolithiasis. The urinary bladder is unremarkable in Computed Tomography Report appearance. Abdominal and pelvic vasculature: Atherosclerotic vascular calcifications are present. Gastrointestinal: Intramural gas is present in the cecal and ascending colonic wall gas (series 2, image [id number]). Colonic diverticulosis is present without evidence of diverticulitis. There is no evidence of obstruction. No pericecal inflammation to suggest acute appendicitis. Peritoneum, retroperitoneum and mesentery: No free fluid or free air. Lymph nodes: No abdominal or pelvic lymphadenopathy is evident. Solid pelvic viscera: Unremarkable. Visualized musculoskeletal structures: Multilevel spondylosis is present. There are degenerative changes of the sacroiliac joints bilaterally. No acute fracture or traumatic dislocation identified. IMPRESSION: 1. Intramural gas near the cecum and ascending colon, compatible with pneumatosis coli. 2. Hepatic steatosis. 3. Additional chronic findings as above. CRITICAL TEST RESULT COMMUNICATION: The findings were discussed with Dr. Diallo on 06/06/2021 at 6:38 PM. Report Dictated on --- Final --- Dictating Physician: MD DE LA O CHRISTOPHER Signed Date and Time: 06/06/2021 6:39 pm Signed by: MD DE LA O CHRISTOPHER Transcribed Date and Time: 06/06/2021 6:40 Labs: Last 24 hours: No results found for this or any previous visit (from the past 24 hour(s)). Lab trends: CBC: Recent Labs 06/06/21164406/06/21164406/07/211 06/07/21 1320 06/08/21 0119 WBC 4.8 -- 3.9 -- 4.0 HGB 17.0 < > 15.3 14.4 13.3 PLT 271 -- 195 -- 163 MCV 95.6 -- 98.1* -- 98.7* RDW 13.6 -- 14.1 -- 13.8 < > = values in this interval not displayed. BMP: Recent Labs 06/06/21164406/07/21 0221 06/08/21 0119 NA 133* 130* 130* K 4.1 3.5 4.0 CL 95* 94* 95* CO2 25 26 30 BUN 7 6* 6* CREATININE 0.73 0.72 0.62 CALCIUM 9.2 8.5 8.1* MG 2.0 1.9 -- Liver Profile: Recent Labs 06/06/21164406/07/21 0221 AST 191* 104* ALT 197* 144* BILITOT 0.7 0.6 ALKPHOS 101 92 LABALBU 4.6 4.2 PROT 7.8 7.0 LIPASE 197 -- INR 1.0 -- Glucose: Recent Labs 06/06/21 1645 06/07/21 0221 06/08/21 0119 GLUCOSE 105* 133* 151* Lactic Acid: Recent Labs 06/07/21 0221 06/07/21 1320 LACTA 2.6* 0.8 Cardiac Injury Profile: No results for input(s): CKTOTAL, CKMB, TROPONINI in the last 72 hours. Other Recent Labs: Lab Results Component Value Date CHOL 285 (A) 09/01/2020 TRIG 120 09/01/2020 HDL 68 (H) 09/01/2020 LDLCHOLESTEROL 193 (A) 09/01/2020 TSH 1.330 02/26/2017 PSA 0.397 09/01/2020 NTPROBNP 18 10/03/2016 Assessment Severe alcohol use disorder Alcohol withdrawal - improving UGIB s/p EGD Lombardo's Fatty liver Plan Phenobarbital taper to manage alcohol withdrawal symptoms: - Continue 64 mg q 6 hours for today. - Lowering to 32 mg q 6 hours tomorrow. PRN medications for withdrawal symptom management added. Thiamine/folic acid. CIWA scores per unit protocol. Encouraged to participate in all unit activities. Remaining medical management per primary team. Discharge Plan: Maria De Jesus Hogan is anticipated to be discharged in 1-2 days pending: - resolution of withdrawal symptoms. - labs/tests/tasks to review: H/H, pain. - nursing education consultant recommendations: GI. - final plan for further addiction treatment at: not interested in formal chem dep treatment. May be interested in going to 12 step meetings. Signing off. Patient does not have to stay for phenobarbital taper to completely finish if his symptoms are minimal. This can be per primary discretion. Please contact flight control manager ADM doctor with any issues. Jonatan Mckeon MD Addiction Medicine 06/09/2021 at 12:34 PM I spent over 51% of total time 25 minutes counseling or coordinating care regarding patient's chemical dependency status. Addiction Team Consultation Progress Note JUNE 08, 2021; Assessment to monitor w/drawal from alcohol complicated by multiple medical issues: Lombardo's esophagitis CVA TIAs HTN GI bleed General: When seen, awake fully oriented to person, place, time, situation; coherent, lucid Pleasant mood with congruent affect Eating lunch vigorously as he'd been NPO for this AM's EDG (which showed area of bleeding which was cauterized) Withdrawal Assessment No tremors or diaphoresis; much improved since yesterday On 97.2mg pheno q 4; several doses held We'll begin tapering NO prn ativan required Addiction Issues Discussed with him; He acknowledged, with a chuckle, that the best way to keep alcoholism in remission is to attend AA Meetings. He admits that this episode frightened him and he intends not to continue drinking. Seems to have limited insight into his intrinsic inability to refrain/stop due to alcoholism Thanked me for the list of AA Meetings I left for him PHYSICAL EXAM Constitutional: Appearing much improved Neuro: Cranial nerve patterns intact NO Tremors/No restlessness/No fidgeting Gait stable Skin: NO diaphoresis/lesions; No abnormal tones/discoloration/bruising Eyes: PEERLA; sclera/conjunctiva clear; NO icterus ORAL/Nasal Mucosa: No rhinnorrhea; No abnormality with dentation; NO lesions; moist Cardiac: Radial pulses equal in strength/rate; brisk capillary refill; NO tachycardia VS: P 98 R 18 T 97.9 147/95 SpO2: 96% r/a Respiratory: No audible wheezing; No cough; No effort indicating labored breathing Cognitions: coherent/lucid; Muscles/Skelatal: No gross abnormalities evident in strength, movement; full ROM in all joint Psychiatric/Emotional: No evidence of thought disorder or psychosis Attention and Perception: fair Mood and Affect: Euthymic/cooperative Speech: Speech is not pressured or rapid Behavior: Behavior is controlled; Thought Content: Thoughts are directed to situation; NO suicidality Judgment: Judgment & insight: poor Perceptual Disturbances: none evident Plan going forward: Will taper phenobarb: 64.8mg q 6 beginning this lyssa Continue tid thiamine while in hospital Continue recommending/encouraging AA Meeting attendanc Robyn RODRIGUEZ Images from the original note were not included. [facility] Progress Note Maria De Jesus Hogan : 1965(55 y.o.) Date: 06/08/21 Subjective: HPI The patient complains of alcohol withdrawal, cough, hematemesis The patient feels their symptoms areimproving no events or new concerns Very pleasant 55 yr old M with PMHx severe alcohol use disorder who presented to ED with hematemesis after a coughing spell. In ER, BP was normal and HR was in the low 100's. Initial lab work was significant for Na 133, ALT/AST 197/191 and alcohol level of 0.364. CT abdomen revealed intramural gas near the cecum and ascending colon, consistent with pneumatosis coli. At that time, he was admitted for further evaluation and treatment. ADM, GI and general surgery were consulted. He was treated with IVF's, phenobarbital and ativan. EGD was obtained morning of 06/08, which showed findings consistent with Lombardo's esophagus and a single bleeding angioectasia in the stomach (treated with argon plasma coagulation) Seen in room after getting back from EGD Feels well No complaints Requesting diet be resumed Scheduled Meds: sodium chloride flush 5-40 mL IntraVENous 2 times per day predniSONE 20 mg Oral Daily Followed by [START ON 06/11/2021] predniSONE 15 mg Oral Daily Followed by [START ON 06/14/2021] predniSONE 10 mg Oral Daily Followed by [START ON 06/17/2021] predniSONE 5 mg Oral Daily ipratropium-albuterol 1 ampule Inhalation BID gabapentin 600 mg Oral TID rosuvastatin 10 mg Oral Nightly thiamine mononitrate 100 mg Oral TID folic acid 1 mg Oral Daily multivitamin 1 tablet Oral Daily cefTRIAXone (ROCEPHIN) IV 1,000 mg IntraVENous Q24H pantoprazole 40 mg IntraVENous BID And sodium chloride (PF) 10 mL IntraVENous BID PHENobarbital 97.2 mg Oral Q4H sodium chloride flush 3 mL IntraVENous Q8H sodium chloride (PF) 10 mL IntraVENous Daily Continuous Infusions: sodium chloride sodium chloride sodium chloride lactated ringers 125 mL/hr at 06/08/21 0525 octreotide (SandoSTATIN) infusion 50 mcg/hr (06/08/21 0524) PRN Meds:sodium chloride flush, sodium chloride, albuterol sulfate HFA, sodium chloride flush, sodium chloride, ondansetron OR ondansetron, polyethylene glycol, acetaminophen OR acetaminophen, sodium chloride flush, sodium chloride, LORazepam OR LORazepam OR LORazepam OR LORazepam OR LORazepam OR LORazepam OR LORazepam OR LORazepam Review of Systems Respiratory: Positive for shortness of breath. Mild CINTRON Gastrointestinal: Negative for nausea and vomiting. Interval Pertinent History: Social History Tobacco Use Smoking status: Current Every Day Smoker Packs/day: 1.50 Years: 17.00 Pack years: 25.50 Types: Cigarettes Smokeless tobacco: Never Used Substance Use Topics Alcohol use: Yes Comment: 25oz cans beer 6-8 per day Objective: Patient Vitals for the past 24 hrs: BP Temp Temp src Pulse Resp SpO2 Height Weight 06/08/21 1133 (!) 159/106 97.5 F (36.4 C) Temporal 85 18 92 % 06/08/21 1056 (!) 139/99 78 16 94 % 06/08/21 1045 (!) 138/97 77 16 94 % 06/08/21 0725 (!) 158/101 98.2 F (36.8 C) Tympanic 80 18 90 % 5' 11 (1.803 m) 205 lb (93 kg) 06/08/21 0530 (!) 156/108 87 06/08/21 0528 (!) 156/108 96.6 F (35.9 C) Temporal 87 16 90 % 06/08/21 0050 (!) 143/84 96.8 F (36 C) Temporal 88 20 95 % 06/07/21 2137 (!) 151/103 97 06/07/21 2128 (!) 151/103 97.3 F (36.3 C) Temporal 97 20 94 % 06/07/21 1448 (!) 166/113 97.3 F (36.3 C) Temporal 100 15 95 % Average, Min, and Max for last 24 hours Vitals: TEMPERATURE: Temp Av.3 F (36.3 C) Min: 96.6 F (35.9 C) Max: 98.2 F (36.8 C) RESPIRATIONS RANGE: Resp Av.4 Min: 15 Max: 20 PULSE RANGE: Pulse Av.6 Min: 77 Max: 100 BLOOD PRESSURE RANGE: Systolic (24hrs), Av , Min:138 , Max:166 ; Diastolic (24hrs), Av, Min:84, Max:113 PULSE OXIMETRY RANGE: SpO2 Av % Min: 90 % Max: 95 % I/O last 3 completed shifts: In: 680 [P.O.:680] Out: - Physical Exam Constitutional: Appearance: He is not diaphoretic. HENT: Head: Normocephalic and atraumatic. Nose: Nose normal. Eyes: General: No scleral icterus. Conjunctiva/sclera: Conjunctivae normal. Cardiovascular: Rate and Rhythm: Normal rate and regular rhythm. Heart sounds: Normal heart sounds. No murmur heard. Pulmonary: Effort: Pulmonary effort is normal. No respiratory distress. Breath sounds: Wheezing present. No rales. Abdominal: General: Bowel sounds are normal. Palpations: Abdomen is soft. Tenderness: There is no abdominal tenderness. There is no guarding. Skin: General: Skin is warm and dry. Neurological: Mental Status: He is alert. Motor: No tremor or seizure activity. Psychiatric: Behavior: Behavior normal. Lab Results Component Value Date WBC 4.0 06/08/2021 HGB 13.3 06/08/2021 HCT 40.0 06/08/2021 MCV 98.7 (H) 06/08/2021 PLT 163 06/08/2021 Lab Results Component Value Date NA 130 06/08/2021 K 4.0 06/08/2021 CL 95 06/08/2021 CO2 30 06/08/2021 BUN 6 06/08/2021 CREATININE 0.62 06/08/2021 GLUCOSE 151 06/08/2021 CALCIUM 8.1 06/08/2021 No results found for: LABA1C Additional results of the last 24 hours have been reviewed. Assessment and Plan: Principal Problem: UGIB (upper gastrointestinal bleed) Active Problems: Alcohol use disorder, moderate, dependence (HCC) Hepatic steatosis Hyponatremia Hypochloremia Transaminitis Atelectasis Resolved Problems: * No resolved hospital problems. * 1. UGIB - 2/2 bleeding angioectasia -s/p APC 2. Alcohol intoxication with alcohol withdrawal 3. Lombardo's esophagus 4. Hyponatremia 5. Lactic acidosis - resolved 6. transaminitis 7. Hepatic steatosis 8. Pneumatosis coli 9. Wheezing 10. Tobacco abuse 11. Chronic low back pain -> the reason for his neurontin per notes from PCP Plan: Chart reviewed EGD findings reviewed Appreciate consultants DC ceftriaxone Change protonix to PO Scheduled phenobarb per ADM Add prednisone taper and scheduled nebs DC labs DVTProphylaxis: Ambulate in lyn Disposition: await completion of alcohol detox. Likely 1-2 more days I spent over 51% of total time providing counseling or incoordination of care: > 35 minutes discussed with nurse and I personally reviewed chart, data, labs radiology reports 6AM-6PM please page: 6PM-6AM please page: [facility] Internal Medicine Images from the original note were not included. GENERAL SURGERY Progress Note PATIENT NAME: Maria De Jesus Hogan TODAY'S DATE: 06/08/2021 SUBJECTIVE: NAEON. Feeling much better today. Underwent EGD with GI this AM that showed known Lombardo's and a single bleeding angioectasia in stomach treated with argon plasma coagulation. Patient denies f/c, n/v, abdominal pain, melena/hematochezia. Tolerating diet, had BM today. Ambulating and voiding without issue. OBJECTIVE: VITALS: BP (!) 159/106 Pulse 85 Temp 97.5 F (36.4 C) (Temporal) Resp 18 Ht 5' 11 (1.803 m) Wt 205 lb (93 kg) SpO2 92% BMI 28.59 kg/m INTAKE/OUTPUT: I/O last 3 completed shifts: In: 680 [P.O.:680] Out: - No intake/output data recorded. REVIEW OF SYSTEMS: Pertinent positives and negatives as per interval history section. PHYSICAL EXAM: CONSTITUTIONAL: No acute distress. Awake, alert, and oriented to person, place, and time. Appears well-nourished. HEAD: Normocepalic, atraumatic without obvious abnormality EYES: Sclera anicterus, conjunctivae without injection, EOMI EARS: external ears atraumatic, no discharge NECK: Supple, symmetrical, trachea midline, no thyromegaly CARDIOVASCULAR: RRR, physiologic S1 S2, no murmurs/rubs/gallops, palpable radial pulses LUNGS: Resp effort easy and unlabored, CTAB, no wheezes/rhonchi/rales ABDOMEN: Soft, NT, mildly distended, no rebound/guarding, no palpable hernias or overlying skin changes : No CVA tenderness, no suprapubic tenderness MUSCULOSKELETAL: Normal range of motion and no gross deformity in bilateral upper/lower extremities SKIN: Warm, dry, well-perfused NEUROLOGIC: CN 2-12 grossly intact, no focal neurologic deficits PSYCH: Normal affect, responds to questions appropriately Data: CBC: Recent Labs 06/06/21164406/06/21164406/07/2122006/07/21 1320 06/08/21 0119 WBC 4.8 -- 3.9 -- 4.0 HGB 17.0 < > 15.3 14.4 13.3 HCT 49.2 < > 45.3 42.5 40.0 PLT 271 -- 195 -- 163 < > = values in this interval not displayed. BMP: Recent Labs 06/06/21164406/07/2122006/08/21 0119 NA 133* 130* 130* K 4.1 3.5 4.0 CL 95* 94* 95* CO2 25 26 30 BUN 7 6* 6* CREATININE 0.73 0.72 0.62 GLUCOSE 105* 133* 151* Hepatic: Recent Labs 06/06/21164406/07/21220 AST 191* 104* ALT 197* 144* BILITOT 0.7 0.6 ALKPHOS 101 92 ASSESSMENT AND PLAN: 55M with ascending colon pneumatosis on CT. Clinically stable without abdominal pain, n/v, bloody BMs. Likely source of GIB identified and treated endoscopically. - Reg diet - IV Protonix - Pain/nausea control prn - OOBTC, encourage ambulation - Further care per primary - Surgery will sign off at this time, but please call with any questions/concerns. DW attending, Dr. Bojorquez. Keshia Lutz MD Surgery PGY-1 #[id number] PAGING: From -6 (-s): Page me at [phone] From 6- (-s): - Surg ICU Patients: Page [phone] - Surg Floor Patients: Page [phone] ATTESTATION The patient was seen and examined. I have reviewed the patients presentation, histories, imaging and serology studies. I agree with the above assessment and plan. Ab: Soft, Non-distended, non-tender Patient is doing well this afternoon. His pain is well controlled. He denies nausea or vomiting and is actively eating a regular diet. The findings of pneumatosis on CT are likely incidental. Recommend continued resuscitation. No surgical intervention at this time. Thank you for allowing to participate in the care of this patient, please call with any questions concerns or if new issues arise. I (Dani Bojorquez) personally supervised the resident in the evaluation and development of a treatment plan for this patient including using nursing/ems notes. I personally discussed the review of systems and interviewed the patient along with performing a physical examination. In addition, I discussed the patient's condition and treatment options with them. I have also reviewed and agree with the past medical, family and social history unless otherwise noted and personally reviewed the imaging and labs. This note may be a delayed entry. All of the patient's questions were answered. Greater than 51% of the 25 minute face to face encounter was spent discussing/counseling the patient regarding the care plan for this patient. The patient was seen and examined independently and relevant data reviewed by myself. A full chart review was performed. 1. UGIB (upper gastrointestinal bleed) 2. Acute alcoholic intoxication with complication (HCC) POST ENDOSCOPY PROCEDURE TRANSFER REPORT Physician: Dr. Wei Procedure completed: EGD Specimens obtained: Distal esophagus Medications administered: see anesthesia note Findings: see MD note Complications: none Report called and given to JAY Newton Please call the Main Endoscopy Dept at [phone] for questions. Images from the original note were not included. Endoscopic procedure was performed today. Please see the media section for procedural findings and recommendations. Can resume regular diet from upper GI perspective. GASTROENTEROLOGY PHYSICIAN PRE PROCEDURE NOTE HPI: Maria De Jesus Hogan is a 55 y.o. male who is here today for planned endoscopic examination. He has no abdominal pain or bleeding. All: Bee venom, Venomil honey bee venom [honey bee venom], Nickel, Other, and Ultram [tramadol] Meds: No current facility-administered medications on file prior to encounter. Current Outpatient Medications on File Prior to Encounter Medication Sig Dispense Refill gabapentin (NEURONTIN) 600 MG tablet Take 1 tablet by mouth 3 times daily for 30 days. 90 tablet 3 rosuvastatin (CRESTOR) 10 MG tablet Take 1 tablet by mouth nightly 30 tablet 3 omeprazole (PRILOSEC) 20 MG delayed release capsule Take 1 capsule by mouth every morning (before breakfast) 30 capsule 3 naproxen (NAPROSYN) 500 MG tablet Take 1 tablet by mouth 2 times daily (with meals) 14 tablet 0 calcipotriene (DOVONEX) 0.005 % ointment Apply topically 2 times daily. 1 each 2 clobetasol (TEMOVATE) 0.05 % cream Apply topically 2 times daily. 1 each 2 albuterol sulfate HFA (PROAIR HFA) 108 (90 Base) MCG/ACT inhaler Inhale 2 puffs into the lungs every 6 hours as needed for Wheezing 1 each 1 PMH: Past Medical History: Diagnosis Date Alcohol abuse Alcohol dependence with withdrawal (HCC) 08/31/2019 Alcohol intoxication without use disorder, uncomplicated (HCC) 10/01/2019 Alcohol withdrawal, uncomplicated (HCC) 08/31/2019 Alcohol withdrawal, with unspecified complication (HCC) 10/02/2019 Alcohol withdrawal, with unspecified complication (HCC) 10/02/2019 Alcoholism (HCC) Anxiety Cerebral artery occlusion with cerebral infarction (HCC) Cerebrovascular disease Depression Hypertension Insomnia No reactions to anesthesia in the past. Airway patent PE: VS: BP (!) 158/101 Pulse 80 Temp 98.2 F (36.8 C) (Tympanic) Resp 18 Ht 5' 11 (1.803 m) Wt 205 lb (93 kg) SpO2 90% BMI 28.59 kg/m Body mass index is 28.59 kg/m . ASA score : 3 ASSESSMENT & PLAN: Risks & benefits of the endoscopic procedure(s) and MAC /GA sedation were personally explained to patient / family along with alternatives to the procedure in detail including radiological and surgical options. The risks of the endoscopic procedure include but are not limited to risk from anesthesia, respiratory failure, infection, bleeding, perforation, pancreatitis with its sequelae , damage to the adjacent organs, missed lesions and need for further procedure, surgery or interventional radiological intervention. We ll proceed with planned procedure . EGD for hematemesis. ? Findings on colon, without symptoms, will use C02 for exam. Sanjuana GALVEZ Gastroenterology Assuming care of this patient. H&P by sat act instructor after midnight was reviewed. General surgery and ADM consults noted. GI eval pending. Appreciate consultants. Phenobarbital ordered per ADM rec's. Discussed with RN and general surgery resident, Dr Lutz. Comprehensive Nutrition Assessment Type and Reason for Visit: Initial,Positive Nutrition Screen (Weight loss, Decreased appetite) Nutrition Recommendations/Plan: 1. Noted plan likely for EGD this admit, pt otherwise remains NPO currently; once PO intake indicated/appropriate, suggest initiating Clear Liquid diet, with slow advancement to likely goal of GI [place]/GERD with GI Soft component, monitoring pt's tolerance; also ONS option like Ensure HP would likely be appropriate. >> If pt with severe withdrawal or if PO intake were to be contraindicated and short-term alternate nutrition intake/route indicated, recommend the following EN: Peptide-Based EN (Vital 1.5) @ goal rate of 55 ml/hr which would provide 1980 kcal, 89 gm protein, 1008 ml free H2O per day (25 kcal/ 1.14 gm protein/ kg IBW <78.2 kg>). [address] to monitor nutrition initiation/progression, GI management, weight (need to confirm pt's current/actual weight), labs, fluid, s/s withdrawal, overall nutritional status & follow up weekly. Nutrition Assessment: Pt with hx which includes EtOH abuse (6 to 8 24-ounce beers daily per chart), HTN & CVA presented as a transfer from [facility] ED for need of higher level of care. Pt had been in his usual state of health prior to presentation to [place] facility, noticed while he was drinking that he began coughing violently and observed bright red blood in his vomit in moderate amounts; several minutes later pt also had BM which contained bright red blood; appears pt denied any other overt symptoms, had only been alarmed by blood so presented to ED. VS upon presentation indicated pt was normotensive ot hypertensive, tachycardia also noted, rest of VS were WNL, labs reviewed and ethanol level was 0.364, LFTs elevated and pt then transferred to [facility]. Appears pt has had similar bleeding in the past and has undergone upper endoscopy where 'lesions' were found and recommendation was made for pt to stop drinking and smoking, in May 2020 GIB was thought to be 2/2 Franca-Carvalho tears and Lombardo's esophagus, no active bleed was seen upon scope at that time. ADM consulted here as well as General Surgery (for input as CT imaging had noted pneumatosis on the ascending colon and cecum), PPI and octreotide were started here, no surgical intervention warranted, pt noted to need colonscopy after discharge. NPO status remains. GI consult pending (appears repeat EGD to be completed this admit); + RD screen for 'weight loss and decreased appetite', per chart appears pt had reported '20# weight loss in the past 3 months' which is noted to be typical per pt as he started drinking more 'heavily' recently and when he does this he loses weight, so this is not abnormal. Pt sleeping heavily and snoring at time of RD visit, [facility] would not record a weight this date. Malnutrition Assessment: Malnutrition Status: Insufficient data (? 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, currently pt NPO pending GI recs/work-up, per chart appears pt himself has reported weight fluctuations/loss (of upwards 20#') when drinking more heavily, most weight hx in chart appears stated, no overt severe losses observed) Estimated Daily Nutrient Needs: Energy (kcal): 4693-8312 kcal/day; Weight Used for Energy Requirements: [place] Protein (g): 78-94 gm protein/day; Weight Used for Protein Requirements: [place] (1.0-1.2 gm protein/kg) Fluid (ml/day): per MD; Method Used for Fluid Requirements: Nutrition Related Findings: s/p CTAP this admit, +BS, last BM 06/06; No edema indicated; medications include MVI, thiamin, folic acid; labs: Sodium (130), Glucose (133), AST/ALT ^ Wounds: (Dereje 23) Current Nutrition Therapies: Diet NPO Anthropometric Measures: Height: 5' 11 (180.3 cm) Current Body Weight: ([facility] would not record a weight) Admission Body Weight: 210 lb (95.3 kg) (stated, then 205# also documented) Usual Body Weight: (per EPIC: 03/13/21- 214#, 09/13/20- 226#, 06/09/20- 200# (stated); appears pt reports large fluctuations in weight when drinking more heavily)) [place] Body Weight: 172 lbs; % [place] Body Weight BMI: 28.59 Adjusted Body Weight: ; No Adjustment BMI Categories: Overweight (BMI 25.0-29.9) Nutrition Diagnosis: Inadequate protein-energy intake related to altered GI function (heavier EtOH consumption at home per chart, bloody vomit and stools noted acutely) as evidenced by (+ nutrition screen/pt report of weight loss and decreased appetite, acutely pt remains NPO pending GI work-up) Nutrition Interventions: Food and/or Nutrient Delivery: (Initiate nutrition via appropriate route as medically feasible) Nutrition Education/Counseling: Education not appropriate Coordination of Nutrition Care: Continue to monitor while inpatient Goals: Pt receives nutrition via appropriate route as medically feasible. Nutrition Monitoring and Evaluation: Food/Nutrient Intake Outcomes: (Nutrition initiation/advancement) Physical Signs/Symptoms Outcomes: Biochemical Data,GI Status,Nausea or Vomiting,Hemodynamic Status,Skin,Weight (s/s withdrawal) Discharge Planning: Too soon to determine Contact: pager [phone] Images from the original note were not included. GENERAL SURGERY Progress Note PATIENT NAME: Maria De Jesus Hogan TODAY'S DATE: 06/07/2021 SUBJECTIVE: NAEON. Patient denies f/c, n/v, abdominal pain. Had BMx2 without gross blood. OBJECTIVE: VITALS: BP (!) 169/96 Pulse 111 Temp 97.6 F (36.4 C) (Temporal) Resp 20 Ht 5' 11 (1.803 m) Wt 205 lb (93 kg) SpO2 94% BMI 28.59 kg/m INTAKE/OUTPUT: I/O last 3 completed shifts: In: 690 [P.O.:680; I.V.:10] Out: 600 [Urine:600] No intake/output data recorded. REVIEW OF SYSTEMS: Pertinent positives and negatives as per interval history section. PHYSICAL EXAM: CONSTITUTIONAL: No acute distress. Awake, alert, and oriented to person, place, and time. Appears well-nourished. HEAD: Normocepalic, atraumatic without obvious abnormality EYES: Sclera anicterus, conjunctivae without injection, EOMI EARS: external ears atraumatic, no discharge NECK: Supple, symmetrical, trachea midline, no thyromegaly CARDIOVASCULAR: RRR, physiologic S1 S2, no murmurs/rubs/gallops, palpable radial pulses LUNGS: Resp effort easy and unlabored, CTAB, no wheezes/rhonchi/rales ABDOMEN: Soft, NT, mildly distended, no rebound/guarding, no palpable hernias or overlying skin changes : No CVA tenderness, no suprapubic tenderness MUSCULOSKELETAL: Normal range of motion and no gross deformity in bilateral upper/lower extremities SKIN: Warm, dry, well-perfused NEUROLOGIC: CN 2-12 grossly intact, no focal neurologic deficits PSYCH: Normal affect, responds to questions appropriately Data: CBC: Recent Labs 06/06/21164406/07/21220 WBC 4.8 3.9 HGB 17.0 15.3 HCT 49.2 45.3 PLT 271 195 BMP: Recent Labs 06/06/21164406/07/21220 NA 133* 130* K 4.1 3.5 CL 95* 94* CO2 25 26 BUN 7 6* CREATININE 0.73 0.72 GLUCOSE 105* 133* Hepatic: Recent Labs 06/06/21164406/07/21220 AST 191* 104* ALT 197* 144* BILITOT 0.7 0.6 ALKPHOS 101 92 ASSESSMENT AND PLAN: 55M with ascending colon pneumatosis on CT. Clinically stable without abdominal pain, n/v, bloody BMs. - Serial abd exams - Appreciate GI consult - IV Protonix - Octreotide gtt - Trend LA - mIVF - Pain/nausea control prn - OOBTC, encourage ambulation - Further care per primary [facility] attending, Dr. Bojorquez. Keshia Lutz MD Surgery PGY-1 #[id number] PAGING: From - (-s): Page me at [phone] From 6- (-s): - Surg ICU Patients: Page [phone] - Surg Floor Patients: Page [phone] ATTESTATION The patient was seen and examined. I have reviewed the patients presentation, histories, imaging and serology studies. I agree with the above assessment and plan. Please refer to consult note I (Dani Bojorquez) personally supervised the resident in the evaluation and development of a treatment plan for this patient including using nursing/ems notes. I personally discussed the review of systems and interviewed the patient along with performing a physical examination. In addition, I discussed the patient's condition and treatment options with them. I have also reviewed and agree with the past medical, family and social history unless otherwise noted and personally reviewed the imaging and labs. This note may be a delayed entry. All of the patient's questions were answered. The patient was seen and examined independently and relevant data reviewed by myself. A full chart review was performed. documented in this encounter [facility] Work Phone: Evaluation note Diagnosis Colon cancer screening Special screening for malignant neoplasms, colon Elevated LFTs Other abnormal blood chemistry documented in this encounter [facility] Work Phone: Evaluation note* Diagnosis Chronic cough Cough documented in this encounter [facility] Work Phone: Evaluation note* Diagnosis Strain of lumbar region, initial encounter- Primary documented in this encounter [facility] Work Phone: Evaluation note* Diagnosis UGIB (upper gastrointestinal bleed)- Primary Hemorrhage of gastrointestinal tract, unspecified Acute alcoholic intoxication with complication (HCC) Hyponatremia Hyposmolality and/or hyponatremia Hypochloremia Electrolyte and fluid disorders not elsewhere classified Transaminitis Nonspecific elevation of levels of transaminase or lactic acid dehydrogenase (LDH) Hepatic steatosis Other chronic nonalcoholic liver disease Severe alcohol use disorder (HCC) Atelectasis Pulmonary collapse Pneumatosis coli Other specified disorder of intestines Alcohol withdrawal syndrome without complication (HCC) documented in this encounter [facility] Work Phone: Evaluation note* Diagnosis Hematemesis with nausea- Primary Alcohol abuse Alcohol abuse, unspecified Lactic acid acidosis Acidosis Hematemesis Alcohol withdrawal syndrome with complication (HCC) Lombardo's esophagus determined by endoscopy Esophagitis Esophagitis, unspecified Elevated liver function tests Other abnormal blood chemistry documented in this encounter [facility] Work Phone: Evaluation note* Diagnosis Low back pain, unspecified Pain in left shoulder Other chronic pain Pain in right shoulder [facility] Diagnosis Chronic left shoulder pain Pain in joint, shoulder region Elevated liver enzymes Other nonspecific abnormal serum enzyme levels Psoriasis Other psoriasis [facility] Diagnosis Chronic left shoulder pain Pain in joint, shoulder region [facility] Diagnosis Hyperglycemia- Primary Other abnormal glucose [facility] Diagnosis Hematemesis with nausea- Primary Hematemesis with nausea Alcohol withdrawal syndrome without complication (HCC) [facility]* Diagnosis Uncomplicated alcohol dependence (HCC)- Primary Elevated liver enzymes Other nonspecific abnormal serum enzyme levels Abnormal EKG Nonspecific abnormal electrocardiogram (ECG) (EKG) SOB (shortness of breath) Shortness of breath Lombardo's esophagus with dysplasia Screening for colon cancer Special screening for malignant neoplasms, colon 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 documented in this encounter [facility] note* Diagnosis Alcohol use disorder- Primary Alcohol use disorder Alcohol withdrawal syndrome without complication (HCC) Alcohol withdrawal syndrome without complication (HCC) [facility]* Diagnosis Elevated liver enzymes Other nonspecific abnormal serum enzyme levels [facility] Diagnosis Chronic left shoulder pain Pain in joint, shoulder region [facility] Diagnosis Chronic left shoulder pain- Primary Pain in joint, shoulder region Elevated liver enzymes Other nonspecific abnormal serum enzyme levels Psoriasis Other psoriasis Screening for colon cancer Special screening for malignant neoplasms, colon Alcohol abuse Nondependent alcohol abuse, unspecified drinking behavior [facility]* Diagnosis Chronic left shoulder pain- Primary Pain in joint, shoulder region Elevated liver enzymes Other nonspecific abnormal serum enzyme levels Psoriasiform seborrheic dermatitis Other psoriasis Screening for colon cancer Special screening for malignant neoplasms, colon Alcohol abuse Nondependent alcohol abuse, unspecified drinking behavior [facility]* Diagnosis Abnormal levels of other serum enzymes- Primary [facility] Diagnosis Low back pain, unspecified- Primary Pain in left shoulder Other chronic pain Pain in right shoulder Low back pain, unspecified Pain in left shoulder Other chronic pain Pain in right shoulder [facility] Diagnosis Alcohol use disorder, severe (HCC)- Primary Alcohol withdrawal syndrome with complication (HCC) Encounter for monitoring naltrexone therapy [facility] Diagnosis Hyperglycemia- Primary Other abnormal glucose Abnormal CBC Other abnormal blood chemistry [facility]* Diagnosis Screening for colon cancer- Primary Special screening for malignant neoplasms, colon Lombardo's esophagus determined by endoscopy Psoriasiform seborrheic dermatitis Other psoriasis Alcohol use disorder, severe (HCC) Lumbar back pain with radiculopathy affecting lower extremity Cigarette smoker Tobacco use disorder documented in this encounter [facility] note* Diagnosis Abnormal levels of other serum enzymes- Primary documented in this encounter [facility] note* Diagnosis Chronic left shoulder pain Pain in joint, shoulder region [facility]* Diagnosis Hyperglycemia, unspecified- Primary Other specified abnormal findings of blood chemistry documented in this encounter [facility] note* Diagnosis Alcohol withdrawal syndrome without complication (HCC)- Primary Alcoholism (CMS/HCC) (HCC) Other and unspecified alcohol dependence, unspecified drinking behavior Alcohol withdrawal syndrome without complication (HCC) Severe alcohol use disorder (HCC) Cigarette smoker Tobacco use disorder [facility] Diagnosis Pain, dental- Primary [facility]* Diagnosis Dental abscess- Primary Periapical abscess without sinus [facility]* Diagnosis Contusion of left middle finger without damage to nail, initial encounter- Primary [facility]* Diagnosis Chronic left shoulder pain Pain in joint, shoulder region [facility]* Diagnosis Alcohol withdrawal syndrome, uncomplicated (HCC)- Primary Alcohol withdrawal syndrome, uncomplicated (HCC) [facility]* Diagnosis Psoriasiform seborrheic dermatitis Other psoriasis [facility]* Diagnosis Alcohol withdrawal syndrome without complication (HCC)- Primary Alcohol abuse Nondependent alcohol abuse, unspecified drinking behavior Severe alcohol use disorder (HCC) Cigarette smoker Tobacco use disorder [facility]* Diagnosis Chronic left shoulder pain Pain in joint, shoulder region [facility]* Diagnosis Alcohol withdrawal syndrome without complication (HCC)- Primary Alcohol withdrawal syndrome without complication (HCC) Chronic left shoulder pain Pain in joint, shoulder region Severe alcohol use disorder (HCC) [facility] Diagnosis Chronic left shoulder pain Pain in joint, shoulder region [facility]* Diagnosis 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)- Primary 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) [facility] Diagnosis Chronic left shoulder pain Pain in joint, shoulder region [facility]* Diagnosis Alcohol withdrawal with inpatient treatment without complication (HCC)- Primary Alcohol abuse Nondependent alcohol abuse, unspecified drinking behavior Severe alcohol use disorder (HCC) [facility]* Diagnosis Severe alcohol use disorder (HCC) [facility]* Diagnosis Screening PSA (prostate specific antigen)- Primary Special screening for malignant neoplasm of prostate Psoriasiform seborrheic dermatitis Other psoriasis Elevated liver enzymes Other nonspecific abnormal serum enzyme levels Screening for colon cancer Special screening for malignant neoplasms, colon Current smoker [facility]* Diagnosis Current smoker [facility]* Diagnosis Pulmonary nodule- Primary Other diseases of lung, not elsewhere classified [facility]* Diagnosis Pulmonary emphysema, unspecified emphysema type (HCC)- Primary Pulmonary nodule Other diseases of lung, not elsewhere classified Cigarette nicotine dependence with other nicotine-induced disorder Alcohol abuse Nondependent alcohol abuse, unspecified drinking behavior [facility]* Diagnosis Elevated liver enzymes- Primary Other nonspecific abnormal serum enzyme levels Chronic left shoulder pain Pain in joint, shoulder region Psoriasis Other psoriasis Lumbar back pain Lumbago Screening for colon cancer Special screening for malignant neoplasms, colon Chronic pain of both shoulders Alcohol abuse Nondependent alcohol abuse, unspecified drinking behavior [facility]* Diagnosis Alcoholic intoxication without complication (CMS/HCC) (HCC)- Primary Alcoholic intoxication without complication (CMS/HCC) (HCC) documented [facility]* Diagnosis Alcohol withdrawal syndrome with complication, with unspecified complication (HCC)- Primary Alcohol use disorder Alcohol withdrawal syndrome with complication, with unspecified complication (HCC) Severe alcohol use disorder (HCC) 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 Cigarette smoker Tobacco use disorder Elevated liver enzymes Other nonspecific abnormal serum enzyme levels [facility]* Diagnosis Alcohol abuse- Primary Nondependent alcohol abuse, unspecified drinking behavior Psoriasiform seborrheic dermatitis Other psoriasis Elevated liver enzymes Other nonspecific abnormal serum enzyme levels Screening for colon cancer Special screening for malignant neoplasms, colon Elevated LFTs Other abnormal blood chemistry 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 Urinary frequency Pulmonary nodule Other diseases of lung, not elsewhere classified Lombardo esophagus with esophagitis [facility]* Diagnosis Closed head injury, initial encounter- Primary Alcoholic intoxication without complication (CMS/HCC) (HCC) [facility]* Diagnosis Psoriasiform seborrheic dermatitis Other psoriasis Elevated liver enzymes Other nonspecific abnormal serum enzyme levels [facility]* Diagnosis Alcohol withdrawal with inpatient treatment, uncomplicated (HCC)- Primary Alcohol use disorder Alcohol withdrawal with inpatient treatment, uncomplicated (HCC) Severe alcohol use disorder (HCC) Severe alcohol use disorder (HCC) [facility]* Diagnosis Pulmonary nodule Other diseases of lung, not elsewhere classified [facility]* Diagnosis Elevated LFTs- Primary Other abnormal blood chemistry Lombardo esophagus with esophagitis Elevated liver enzymes Other nonspecific abnormal serum enzyme levels Cigarette smoker Tobacco use disorder Severe alcohol use disorder (HCC) Screening for colon cancer Special screening for malignant neoplasms, colon Lumbar back pain Lumbago Pulmonary nodule- Primary Other diseases of lung, not elsewhere classified Pulmonary emphysema, unspecified emphysema type (HCC) Cigarette nicotine dependence without complication ETOH abuse Nondependent alcohol abuse, unspecified drinking behavior [facility]* Diagnosis Psoriasiform seborrheic dermatitis Other psoriasis Elevated liver enzymes Other nonspecific abnormal serum enzyme levels [facility]* Diagnosis Subcutaneous hematoma- Primary Contusion of dorsum of foot [facility]* Diagnosis Alcohol withdrawal syndrome with complication (HCC)- Primary Alcohol dependence with inpatient treatment (HCC) Herpes zoster without complication Alcohol withdrawal syndrome without complication (HCC) 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 Severe alcohol use disorder (HCC) 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 Cigarette smoker Tobacco use disorder 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 [facility]* Diagnosis Acute pain associated with herpes zoster- Primary [facility]* Diagnosis Screening for colon cancer- Primary Special screening for malignant neoplasms, colon Psoriasiform seborrheic dermatitis Other psoriasis Elevated liver enzymes Other nonspecific abnormal serum enzyme levels Neuropathy Mononeuritis of unspecified site Herpes zoster with other complication 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 documented in this encounter [facility] Discharge instructions* Attachments The following attachments cannot be sent through Care Everywhere. * Back: Strain ([place]an) documented in this [facility]* Attachments The following attachments cannot be sent through Care Everywhere. * Acute Pain Discharge Instructions, Adult ([place]an) documented in this [facility] Discharge instructions* Attachments The following attachments cannot be sent through Care Everywhere. * Alcohol Use Disorder Discharge Instructions ([place]) documented in this [facility] Discharge instructions* Attachments The following attachments cannot be sent through Care Everywhere. * Contusion Discharge Instructions ([place]wandan) documented in this [facility] for referral (narrative)* Consultation (Routine) - Pending Review Specialty Diagnoses / Procedures Referred By Carmen patton Referred To Contact Urology Diagnoses ED (erectile dysfunction) of non-organic origin Procedures [facility]PATIENT [facility] 60-74 MINUTES Lynda Rasheed MD [address] [place] [phone] [facility] Uro [address] [place] [address] [address] [place] [address] Referral ID Status Reason Start Date Expiration Date Visits Requested Visits Authorized [id number] Pending Review Specialty Services Required 08/01/2022 08/01/2023 1 1 * Consultation (Routine) - Pending Review Specialty Diagnoses / Procedures Referred By Carmen patton Referred To Contact Gastroenterology Diagnoses Elevated liver enzymes Lombardo's esophagus with dysplasia Screening for colon cancer Procedures [facility] OFF[facility]PATIENT [facility] 60-74 MINUTES Lynda Rasheed MD [address] [place] [id number] [facility] Gastro [address] [place] [address] Referral ID Status Reason Start Date Expiration Date Visits Requested Visits Authorized [id number] Pending Review Specialty Services Required 08/01/2022 08/01/2023 1 1 * (Routine) - Incomplete Specialty Diagnoses / Procedures Referred By Contac t Referred To Contact Diagnoses SOB (shortness of breath) Procedures Complete PFT study Lynda Rasheed MD [address] [place] [phone] Referral ID Status Reason Start Date Expiration Date V isits Requested Visits Authorized [id number] Incomplete 08/01/2022 01/28/2023 1 1 * Imaging (Routine) - Pending Review Specialty Diagnoses / Procedures Referred By Contac t Referred To Contact Cardiology Diagnoses Abnormal EKG Procedures Transthoracic echocardiogram (TTE) complete with contrast, bubble, strain, and 3D PRN [facility] ECHO TTHRC R-T 2D W/WOM-MODE COMPL SPEC&COLR D VA TTE W OR WO FOL WCONMARIO ALBERTO Diana, MD [address] [place] [phone] Referral ID Status Reason Start Date Expiration Date Visits Requested Visits Authorized [id number] Pending Review Perform Procedure 08/01/2022 01/28/2023 1 1 * Consultation (Routine) - Pending Review Specialty Diagnoses / Procedures Referred By Contac t Referred To Contact Addiction Medicine / Addiction Support Services Diagnoses Uncomplicated alcohol dependence (HCC) Procedures [facility] 60-74 MINUTES Lynda Rasheed MD [address] [place] [phone] [facility] [address] [place] [address] Referral ID Status Reason Start Date Expiration Date Visits Requested Visits Authorized [id number] Pending Review Specialty Services Required 08/01/2022 08/01/2023 1 1 Pedro Tirado for referral (narrative)* Consultation (Routine) - Pending Review Specialty Diagnoses / Procedures Referred By Contac t Referred To Contact General Surgery Diagnoses Screening for colon cancer Procedures [facility] OFFICE[facility]OUTPATIENT [facility] 60-74 MINUTES Lynda Rasheed MD [address] [place] [phone] Sotero Madsen MD [address] [place] [address] 10 [place] [address] Referral ID Status Reason Start Date Expiration Date Visits Requested Visits Authorized [id number] Pending Review Specialty Services Required 09/25/2022 09/25/2023 1 1 * Medications - Closed Specialty Diagnoses / Procedures Referred By Contac t Referred To Contact Lynda Rasheed MD [address] [place] [id number] Referral ID Status Reason Start Date Expiration Date Visits Re quested Visits Authorized [id number] Closed 1 1 Pedro Tirado for referral (narrative)* Consultation (Routine) - Pending Review Specialty Diagnoses / Procedures Referred By Contac t Referred To Contact Addiction Medicine / Addiction Support Services Diagnoses Alcohol use disorder, severe (HCC) Procedures [facility]OUTPATIENT [facility] 60-74 MINUTES Papito Hood MD [address] [place] [address] [facility] [address] [place] [address] Referral ID Status Reason Start Date Expiration Date Visits Requested Visits Authorized [id number] Pending Review Specialty Services Required 10/09/2022 10/09/2023 1 1 * Medications - Pending Review Specialty Diagnoses / Procedures Referred By Contac t Referred To Contact Papito Hood MD [address] [place] [address] Referral ID Status Reason Start Date Expiration Date V isits Requested Visits Authorized [id number] Pending Review 1 1 Pedro Tirado for referral (narrative)* Consultation (Routine) - Pending Review Specialty Diagnoses / Procedures Referred By Contac t Referred To Contact General Surgery Diagnoses Screening for colon cancer Procedures [facility] OFFICE[facility]OUTPATIENT [facility] MDM 60-74 MINUTES Lynda Rasheed MD [address] [place], [place] [phone] Sotero Madsen MD [address] [place] [address] Referral ID Status Reason Start Date Expiration Date Visits Requested Visits Authorized [id number] Pending Review Specialty Services Required 12/26/2022 12/26/2023 1 1 Pedro ShermanReluana for referral (narrative)* Consultation (Routine) - Pending Review Specialty Diagnoses / Procedures Referred By Contac t Referred To Contact General Surgery Diagnoses Screening for colon cancer Procedures [facility] OFFICE[facility]PATIENT [facility] MDM 60-74 MINUTES Lynda Rasheed MD [address] [place] [phone] Sotero Madsen MD [address] [place] [address] Referral ID Status Reason Start Date Expiration Date Visits Requested Visits Authorized [id number] Pending Review Specialty Services Required 06/12/2022 06/12/2023 1 1 * Consultation (Routine) - Pending Review Specialty Diagnoses / Procedures Referred By Carmen t Referred To Contact Dermatology Diagnoses Psoriasis Procedures [facility] OFFICE[facility]OUTPATIENT [facility] 60-74 MINUTES Lynda Rasheed MD [address] [place] [address] [facility] Derm [address] [facility] [address] [place] [address] Referral ID Status Reason Start Date Expiration Date Visits Requested Visits Authorized [id number] Pending Review Specialty Services Required 06/12/2022 06/12/2023 1 1 [facility] N[facility]* Imaging (Routine) - Authorized Specialty Diagnoses / Procedures Referred By Carmen t Referred To Contact Radiology Diagnoses Current smoker Procedures CT lung screening low dose Lynda Rasheed MD [address] [facility] [address] [place] [address] Phone: tel: fax: Referral ID Status Reason Start Date Expiration Date V isits Requested Visits Authorized [id number] Authorized 02/05/2024 02/04/2025 1 11 [facility] Narrative* Imaging (Routine) - Closed Specialty Diagnoses / Procedures Referred By Carmen t Referred To Contact Radiology Diagnoses Pulmonary nodule Procedures CT chest wo IV contrast Myra Darden MD [address] [place] [address] Phone: tel: fax: Referral ID Status Reason Start Date Expiration Date Visits Re quested Visits Authorized [id number] Closed 02/28/2024 02/27/2025 1 1 [employer] Summary Purpose Family History Medical History Relation Name Comments Other Father h/o rheumatic f ever, cardiac arrest due to bee sting Cancer Mother colon rectal ca ncer; dx after age 50 Other Mother alcoholism Depression Sister Other Sister agoraphobia Relation Name Status Comments Father Mother Sister Advance Directives Date Activated Date Inactivated Comments 06/02/2024 7:28 PM 06/04/2024 5:48 PM Date Activated Date Inactivated Comments 05/07/2024 9:44 PM 05/10/2024 4:45 PM Date Activated Date Inactivated Comments 04/10/2024 12:37 AM 04/12/2024 1:32 PM Date Activated Date Inactivated Comments 01/20/2024 10:58 PM 01/24/2024 4:15 PM Date Activated Date Inactivated Comments 11/28/2023 5:21 AM 11/30/2023 12:44 PM Documents on File Type Date Recorded Patient Inhalation Therapist Expl anation Advance Directives and Living Will Power of Overlocker Documents on File Type Date Recorded Patient Inhalation Therapist Expl anation Advance Directives and Living Will Power of Overlocker Latest Code Status on File Code Status Date Activated Date Inactivated Comments Full Code 08/31/2019 9:29 PM Latest Code Status on File Code Status Date Activated Date Inactivated Comments Full Code 10/02/2019 1:24 AM 10/05/2019 6:43 PM Full Code 08/31/2019 9:29 PM 09/02/2019 4:37 PM Documents on File Type Date Recorded Patient Inhalation Therapist Expl anation ACP-Advance Directive ACP-Power of Overlocker Latest Code Status on File Code Status Date Activated Date Inactivated Comments Full Code 06/09/2020 12:36 PM Full Code 10/02/2019 1:24 AM 10/05/2019 6:43 PM Latest Code Status on File Code Status Date Activated Date Inactivated Comments Full Code 06/09/2020 12:36 PM 06/10/2020 5:52 PM Latest Code Status on File Code Status Date Activated Date Inactivated Comments Full Code 06/07/2021 12:40 AM Full Code 06/09/2020 12:36 PM 06/10/2020 5:52 PM Healthcare Agents on File Name Relationship Healthcare Agent Relationshi p Communication June [place] Spouse Primary Decision Maker Latest Code Status on File Code Status Date Activated Date Inactivated Comments Full Code 09/27/2021 1:07 AM Full Code 06/07/2021 12:40 AM 06/09/2021 6:37 PM Healthcare Agents on File Name Relationship Healthcare Agent Relationshi p Communication Judy [place] Spouse Primary Decision Maker Latest Code Status on File Code Status Date Activated Date Inactivated Comments Full Code 07/21/2022 6:29 PM 07/23/2022 2:15 PM Latest Code Status on File Code Status Date Activated Date Inactivated Comments Full Code 07/21/2022 6:29 PM 07/23/2022 2:15 PM Latest Code Status on File Code Status Date Activated Date Inactivated Comments Full Code 09/10/2022 4:01 PM 09/14/2022 2:43 PM Code Status History Code Status Date Activated Date Inactivated Comments Full Code 07/21/2022 6:29 PM 07/23/2022 2:15 PM Latest Code Status on File Code Status Date Activated Date Inactivated Comments Full Code 09/10/2022 4:01 PM 09/14/2022 2:43 PM Code Status History Code Status Date Activated Date Inactivated Comments Full Code 07/21/2022 6:29 PM 07/23/2022 2:15 PM Latest Code Status on File Code Status Date Activated Date Inactivated Comments Full Code 02/08/2023 6:31 PM 02/11/2023 2:02 PM Code Status History Code Status Date Activated Date Inactivated Comments Full Code 09/10/2022 4:01 PM 09/14/2022 2:43 PM Full Code 07/21/2022 6:29 PM 07/23/2022 2:15 PM Latest Code Status on File Code Status Date Activated Date Inactivated Comments Full Code 05/21/2023 2:41 AM 05/23/2023 7:39 PM Code Status History Code Status Date Activated Date Inactivated Comments Full Code 02/08/2023 6:31 PM 02/11/2023 2:02 PM Full Code 09/10/2022 4:01 PM 09/14/2022 2:43 PM Full Code 07/21/2022 6:29 PM 07/23/2022 2:15 PM Latest Code Status on File Code Status Date Activated Date Inactivated Comments Full Code 07/08/2023 7:15 PM 07/11/2023 6:33 PM Code Status History Code Status Date Activated Date Inactivated Comments Full Code 05/21/2023 2:41 AM 05/23/2023 7:39 PM Full Code 02/08/2023 6:31 PM 02/11/2023 2:02 PM Full Code 09/10/2022 4:01 PM 09/14/2022 2:43 PM Full Code 07/21/2022 6:29 PM 07/23/2022 2:15 PM Latest Code Status on File Code Status Date Activated Date Inactivated Comments Full Code 07/27/2023 9:23 PM 07/31/2023 6:34 PM Code Status History Code Status Date Activated Date Inactivated Comments Full Code 07/08/2023 7:15 PM 07/11/2023 6:33 PM Full Code 05/21/2023 2:41 AM 05/23/2023 7:39 PM Full Code 02/08/2023 6:31 PM 02/11/2023 2:02 PM Full Code 09/10/2022 4:01 PM 09/14/2022 2:43 PM Date Activated Date Inactivated Comments 11/28/2023 5:21 AM 11/30/2023 12:44 PM Date Activated Date Inactivated Comments 07/27/2023 9:23 PM 07/31/2023 6:34 PM Date Activated Date Inactivated Comments 07/08/2023 7:15 PM 07/11/2023 6:33 PM Date Activated Date Inactivated Comments 05/21/2023 2:41 AM 05/23/2023 7:39 PM Date Activated Date Inactivated Comments 02/08/2023 6:31 PM 02/11/2023 2:02 PM Date Activated Date Inactivated Comments 01/20/2024 10:58 PM 01/24/2024 4:15 PM Date Activated Date Inactivated Comments 11/28/2023 5:21 AM 11/30/2023 12:44 PM Date Activated Date Inactivated Comments 07/27/2023 9:23 PM 07/31/2023 6:34 PM Date Activated Date Inactivated Comments 07/08/2023 7:15 PM 07/11/2023 6:33 PM Date Activated Date Inactivated Comments 05/21/2023 2:41 AM 05/23/2023 7:39 PM Date Activated Date Inactivated Comments 01/20/2024 10:58 PM 01/24/2024 4:15 PM Date Activated Date Inactivated Comments 11/28/2023 5:21 AM 11/30/2023 12:44 PM Date Activated Date Inactivated Comments 07/27/2023 9:23 PM 07/31/2023 6:34 PM Date Activated Date Inactivated Comments 07/08/2023 7:15 PM 07/11/2023 6:33 PM Date Activated Date Inactivated Comments 05/21/2023 2:41 AM 05/23/2023 7:39 PM Date Activated Date Inactivated Comments 04/10/2024 12:37 AM 04/12/2024 1:32 PM Date Activated Date Inactivated Comments 01/20/2024 10:58 PM 01/24/2024 4:15 PM Date Activated Date Inactivated Comments 11/28/2023 5:21 AM 11/30/2023 12:44 PM Date Activated Date Inactivated Comments 07/27/2023 9:23 PM 07/31/2023 6:34 PM Date Activated Date Inactivated Comments 07/08/2023 7:15 PM 07/11/2023 6:33 PM Date Activated Date Inactivated Comments 05/07/2024 9:44 PM 05/10/2024 4:45 PM Date Activated Date Inactivated Comments 04/10/2024 12:37 AM 04/12/2024 1:32 PM Date Activated Date Inactivated Comments 01/20/2024 10:58 PM 01/24/2024 4:15 PM Date Activated Date Inactivated Comments 11/28/2023 5:21 AM 11/30/2023 12:44 PM Date Activated Date Inactivated Comments 07/27/2023 9:23 PM 07/31/2023 6:34 PM Date Activated Date Inactivated Comments 05/07/2024 9:44 PM 05/10/2024 4:45 PM Date Activated Date Inactivated Comments 04/10/2024 12:37 AM 04/12/2024 1:32 PM Date Activated Date Inactivated Comments 01/20/2024 10:58 PM 01/24/2024 4:15 PM Date Activated Date Inactivated Comments 11/28/2023 5:21 AM 11/30/2023 12:44 PM Date Activated Date Inactivated Comments 07/27/2023 9:23 PM 07/31/2023 6:34 PM Date Activated Date Inactivated Comments 06/02/2024 7:28 PM Date Activated Date Inactivated Comments 06/02/2024 7:28 PM 06/04/2024 5:48 PM Date Activated Date Inactivated Comments 05/07/2024 9:44 PM 05/10/2024 4:45 PM Date Activated Date Inactivated Comments 04/10/2024 12:37 AM 04/12/2024 1:32 PM Date Activated Date Inactivated Comments 01/20/2024 10:58 PM 01/24/2024 4:15 PM Date Activated Date Inactivated Comments 11/28/2023 5:21 AM 11/30/2023 12:44 PM Date Activated Date Inactivated Comments 08/03/2024 7:06 PM 08/06/2024 5:52 PM Date Activated Date Inactivated Comments 06/02/2024 7:28 PM 06/04/2024 5:48 PM Date Activated Date Inactivated Comments 05/07/2024 9:44 PM 05/10/2024 4:45 PM Date Activated Date Inactivated Comments 04/10/2024 12:37 AM 04/12/2024 1:32 PM Date Activated Date Inactivated Comments 01/20/2024 10:58 PM 01/24/2024 4:15 PM Assessments Diagnosis Mixed hyperlipidemia Eczema, unspecified type Cough Diagnosis Strain of lumbar region, initial encounter- Primary Diagnosis Acute exacerbation of chronic low back pain- Primary Sciatica of left side Sciatica Diagnosis Acute pharyngitis, unspecified etiology Diagnosis Hematemesis with nausea- Primary Acute alcoholic intoxication without complication (HCC) Tachycardia Tachycardia, unspecified Elevated lactic acid level Other nonspecific abnormal serum enzyme levels Hematemesis Alcohol withdrawal, with unspecified complication (HCC) Severe alcohol use disorder (HCC) Cigarette smoker Tobacco use disorder Elevated liver enzymes Nonspecific elevation of levels of transaminase or lactic acid dehydrogenase (LDH) Fatty liver, alcoholic Alcoholic fatty liver Discharge Instructions * Attachments The following attachments cannot be sent through Care Everywhere. * Back: Strain (Rwandan) * Low Back Pain: Exercises (Rwandan) documented in this encounter* Attachments The following attachments cannot be sent through Care Everywhere. * Back Pain (Rwandan) * Sciatica (Rwandan) * Low Back Pain: Exercises (Rwandan) documented in this encounter* Attachments The following attachments cannot be sent through Care Everywhere. * Sore Throat (Rwandan) * Smoking: Stopping ([place]wandan) documented in this encounter* Instructions* Eryn Perrin RN - 06/10/2020 GENERAL SIGNS AND SYMPTOMS GREEN ZONE: All Clear- Your Symptoms Are Under Control No recurrence of symptoms that led to hospitalization Able to do usual activities No fever No chest pain No shortness of breath This Means You Should: Continue taking your medications as prescribed Continue activity as tolerated Keep all doctor appointments YELLOW ZONE: Caution as Your Health may be Worsening Recurrence of symptoms that led to hospitalization Fever of 100 degrees or higher Increased fatigue or restlessness Intolerant side-effects of medications Uneasy feeling or that something is wrong This Means You Should: Call your doctor for further instructions RED ZONE: Medical Alert Severe or unrelieved shortness of breath at rest Unrelieved chest pain Confusion or you can't think clearly This Means You Should Call 911 Immediately * Attachments The following attachments cannot be sent through Care Everywhere. 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 Specimens obtained: Biopsies Medications administered: Propofol Additional Info: Please see Dr Madison report For additional Questions please call Endoscopy at [phone]. Thank You! documented in this encounter Reason for Referral Specialty Diagnoses / Procedures Referred By Carmen t Referred To Contact Lynda Rasheed MD [address] [place] [address] Referral ID Status Reason Start Date Expiration Date V isits Requested Visits Authorized [id number] Pending Review 1 1 Referral ID Status Reason Start Date Expiration Date Visits Re quested Visits Authorized [id number] Closed 1 1 Additional Source Comments (unrecognized sect ion and content) No Status Records FoundNo Status Records FoundNo Status Records FoundNo Status Records FoundNo Status Records FoundNo Status Records Found INFORMATION SOURCE (unrecogn ized section and content) DATE CREATED AUTHOR 09/18/2017 [facility] DATE CREATED AUTHOR AUTHOR'S ORGANIZ ATION 01/03/2019 [facility] DATE CREATED AUTHOR AUTHOR'S ORGANIZ ATION 01/03/2019 [facility] DATE CREATED AUTHOR AUTHOR'S ORGANIZ ATION 10/28/2021 [facility] DATE CREATED AUTHOR AUTHOR'S ORGANIZ ATION 10/31/2021 [facility] DATE CREATED AUTHOR AUTHOR'S ORGANIZ ATION 08/28/2024 [facility] Reason for Visit (unrecogniz ed section and content) Reason Comments Back Pain left lower back pain radiating down left leg sharp and steady ache 1st episode 2 weeks ago and 2nd 2 dayus ago Reason Comments Back Pain Reason Comments Pharyngitis sore throat x 2 days progreeively worsening Headache generalized Fever low grade Reason Comments Abdominal Pain Emesis Hematemesis Reason Comments Back Pain R. lower Reason Comments Alcohol Intoxication Hematemesis Rectal Bleeding Reason Comments Emesis Reason Onset Date Comments Med Refill 07/14/2022 Reason Onset Date Comments Med Refill 07/16/2022 Reason Comments Alcohol Problem Pt states that he is a daily drinker, usually 8-9 tall boys a day. Pt has been vomiting x1 week and states he has been getting intoxicated from drinking but is not keeping down what he normally would. 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 Also reports BRB in his vomit. Specialty Diagnoses / Procedures Referred By Contac t Referred To Contact Diagnoses Alcohol withdrawal syndrome without complication (HCC) Hematemesis with nausea Procedures f10.930 Redd Teixeira MD [address] [facility] [address] [place] [address] [facility] 2[facility] Telemetry [address] [place] [address] Referral ID Status Reason Start Date Expiration Date Visits Re quested Visits Authorized [id number] 1 1 Reason Onset Date Comments Results 07/11/2022 Reason Comments Follow-up Discuss results and COPD Specialty Diagnoses / Procedures Referred By Contac t Referred To Contact Diagnoses SOB (shortness of breath) Procedures Complete PFT study Lynda Rasheed MD [address] [place] [address] Referral ID Status Reason Start Date Expiration Date V isits Requested Visits Authorized [id number] Incomplete 08/01/2022 01/28/2023 1 1 Reason Comments Alcohol Problem Pt arrives via triag e wanting detox from alcohol. Pt drinks 7-9 tall beers a day. Pt hasn't been able to eat much in the past week. Pt having some nausea/vomiting. Specialty Diagnoses / Procedures Referred By Contac t Referred To Contact Diagnoses Alcohol withdrawal syndrome without complication (HCC) Alcohol use disorder Procedures [id number] withdrawal syndrome without complication (HCC) [id number] use disorder Bryan Rodriguez MD [address] [address] [facility] [address] Detox [address] [place] [address] Referral ID Status Reason Start Date Expiration Date Visits Re quested Visits Authorized [id number] 1 1 Reason Onset Date Comments Med Refill 09/14/2022 Reason Onset Date Comments Med Refill 09/22/2022 Reason Comments Follow-up 8 week, pt was in De tox recently. Reason Comments Addiction Problem Reason Onset Date Comments Results 10/01/2022 Reason Onset Date Comments Med Refill 12/07/2022 Reason Comments Follow-up Reason Onset Date Comments Med Refill 01/28/2023 Reason Comments Alcohol Problem Pt presents with req uesting ETOH detox. Pt states he drinks 6-9 tall boy beers every day. Last drink approx 30 mins ago. Denies withdraw seizures in the past. Vomiting Pt states he started vomiting several days ago and there are some blood streaks in the vomit. Not able to keep much food or water down. Mid/epigastric abd pain as well as diarrhea and chills/sweats. Specialty Diagnoses / Procedures Referred By Contac t Referred To Contact Diagnoses Alcoholism (CMS/HCC) (HCC) Alcohol withdrawal syndrome without complication (HCC) Procedures . Jonatan Mckeon MD [address] [address] [facility] 4[address] Detox [address] [place] [address] Referral ID Status Reason Start Date Expiration Date Visits Re quested Visits Authorized [id number] 1 1 Reason Comments Dental Pain Reason Comments Oral Swelling Reason Comments Finger Injury Left middle finger p ain swelling & decreased ROM since slamming in the door this morning Reason Onset Date Comments Med Refill 04/24/2023 Reason Comments Alcohol Problem Pt. States he would like to do inpatient detox from alcohol. States he drinks 3-4 tall boys of beer per day. 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 Specialty Diagnoses / Procedures Referred By Contac t Referred To Contact Diagnoses Alcohol withdrawal syndrome, uncomplicated (HCC) Procedures f10.930 Shelly Cruz MD [address] [place] [address] [facility] [address] [place] [address] Referral ID Status Reason Start Date Expiration Date Visits Re quested Visits Authorized [id number] 1 1 Reason Onset Date Comments Med Refill 06/26/2023 Reason Comments Detox Pt. States he would like to come in for inpatient detox. States he has been drinking 8-9 tallboys per day since he was a teen. Pt. States he has never attempted to detox before. States last drink was less that 30mins ago. Specialty Diagnoses / Procedures Referred By Contac t Referred To Contact Diagnoses Alcohol abuse Procedures . Jonatan Mckeon MD [address] [address] [facility] 4[address] Detox [address] [place] [address] Referral ID Status Reason Start Date Expiration Date Visits Re quested Visits Authorized [id number] 1 1 Reason Onset Date Comments Med Refill 07/19/2023 Reason Comments Alcohol Intoxication Specialty Diagnoses / Procedures Referred By Contac t Referred To Contact Diagnoses Alcohol withdrawal syndrome without complication (HCC) Procedures .. Bryan Rodriguez MD [address] [address] [facility] 4[address] Detox [address] [place] [address] Referral ID Status Reason Start Date Expiration Date Visits Re quested Visits Authorized [id number] 1 1 Reason Comments Med Refill Reason Comments Alcohol Problem Pt c/o ETOH abuse. S tates last drink was a couple hours. Pt states 8 tall boys a day typically. Pt states he's having difficulty thinking straight. Specialty Diagnoses / Procedures Referred By Contac t Referred To Contact Diagnoses 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) Procedures . Shelly Cruz MD [address] [place] [address] [facility] [address] [place] [address] Referral ID Status Reason Start Date Expiration Date Visits Re quested Visits Authorized [id number] 1 1 Reason Onset Date Comments Med Refill 12/03/2023 Reason Comments Alcohol Problem Specialty Diagnoses / Procedures Referred By Carmen patton Referred To Contact Diagnoses Alcohol abuse Procedures - Luis Branch MD [address] [place] [address] Phone: tel: fax: [facility] [address] [place] [address] Phone: tel: Referral ID Status Reason Start Date Expiration Date Visits Re quested Visits Authorized [id number] 1 1 Reason Comments Drug / Alcohol Assessment Reason Comments Follow-up Med Check Flu Vaccine Patient has already received the flu vaccine, pt does not remember date received Reason Onset Date Comments Med Refill 02/06/2024 Reason Onset Date Comments Error (VOID this visit) 02/13/2024 Reason Onset Date Comments Care Coordination 02/13/2024 Lung Rads 4A L [facility] Screening CT- Expedited lung nodule clinic eval recommended Reason Comments Care Coordination Lung Nodule Review C onference Recommendations 02/18/24 Reason Comments New Patient Lung Nodule Specialty Diagnoses / Procedures Referred By Carmen patton Referred To Contact Pulmonology Diagnoses Pulmonary nodule Procedures VA OFFICE/OUTPATIENT NEW HIGH MDM 60 MINUTES Lynda Rasheed MD [address] [place] [address] [address] [place] [address] Phone: tel: fax: [facility] [address] [address] Phone: tel: fax: Referral ID Status Reason Start Date Expiration Date Visits Requested Visits Authorized [id number] Pending Review Specialty Services Required 02/12/2025 1 1 Reason Comments Annual Exam Shoulder Pain Reason Comments Alcohol Problem Patient seeking deto x from ETOH. 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 Specialty Diagnoses / Procedures Referred By Carmen patton Referred To Contact Diagnoses Alcoholic intoxication without complication (CMS/HCC) (HCC) Procedures . John Sahni MD [address] [place] [address] Phone: tel: fax: [facility] [address] [place] [address] Phone: tel: Referral ID Status Reason Start Date Expiration Date Visits Re quested Visits Authorized [id number] 1 1 Reason Comments Alcohol Problem Patient presents for detox from alcohol. 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 Patient drinks 6-9 tall boys a day. Specialty Diagnoses / Procedures Referred By Carmen t Referred To Contact Diagnoses Alcohol withdrawal syndrome with complication, with unspecified complication (HCC) Alcohol use disorder Procedures . Jonatan Mckeon MD [address] [address] Phone: tel: fax: [facility] Detox Unit [address] [place] [address] Phone: tel: Referral ID Status Reason Start Date Expiration Date Visits Re quested Visits Authorized [id number] 1 1 Reason Comments Hospital Follow-up 05/07/24 [facility] for detox Reason Comments Fall Head Injury Alcohol Intoxication Reason Onset Date Comments Test Scheduling 05/23/2024 Reason Onset Date Comments Med Refill 06/01/2024 Reason Comments Alcohol Problem Pt here for detox. L ast drink 30 minutes ago drank 3 tallboys normally has 6-9tallboys Specialty Diagnoses / Procedures Referred By Carmen patton Referred To Contact Diagnoses Alcohol withdrawal with inpatient treatment, uncomplicated (HCC) Alcohol use disorder Procedures . Jonatan Mckeon MD [address] [address] Phone: tel: fax: [facility] [address] [place] [address] Phone: tel: Referral ID Status Reason Start Date Expiration Date Visits Re quested Visits Authorized [id number] 1 1 Reason Onset Date Comments Test Scheduling 06/03/2024 Reason Onset Date Comments Med Refill 06/22/2024 Reason Comments Toe Injury Dropped dresser on 4 th toe of left foot yest morning. Reason Comments Rash On abdomen Back Pain Middle of back. No k nown injury. 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 Requ esting detox Specialty Diagnoses / Procedures Referred By Contmicha t Referred To Contact Diagnoses Alcohol dependence with inpatient treatment (HCC) Herpes zoster without complication Alcohol withdrawal syndrome without complication (HCC) Procedures . Bryan Rodriguez MD [address] [facility] [address] [place] [address] Phone: tel: fax: [facility] [address] [place] [address] Phone: tel: Referral ID Status Reason Start Date Expiration Date Visits Re quested Visits Authorized [id number] 1 1 Reason Comments Rash Reason Comments Herpes Zoster Reason Onset Date Comments Med Refill 08/14/2024 Ordered Prescriptions (unrec ognized section and content) Prescription Sig Dispensed Refills Start Date End Da te pantoprazole (PROTONIX) 40 MG tablet Take 1 tablet by mouth every morning (before breakfast) 30 tablet 0 06/11/2020 Prescription Sig Dispensed Refills Start Date End Da te naproxen (NAPROSYN) 500 MG tablet Take 1 tablet by mouth 2 times daily (with meals) 14 tablet 0 04/06/2021 Prescription Sig Dispensed Refills Start Date End Da te predniSONE (DELTASONE) 10 MG tablet Take 2 tabs daily for 3 days, then 1 tabs daily for 3 days, then 0.5 tab daily for 3 days 11 tablet 0 06/09/2021 pantoprazole (PROTONIX) 40 MG tablet Take 1 tablet by mouth every morning (before breakfast) 30 tablet 3 06/10/2021 amLODIPine (NORVASC) 5 MG tablet Take 1 tablet by mouth daily 30 tablet 1 06/10/2021 Care Teams (unrecognized sec tion and content) Preschool Adviser Relationship Specialty Start Date End Date Lynda Rasheed MD [address] [place], [place] [id number] PCP - General Family Medicine 02/25/17 Preschool Adviser Relationship Specialty Start Date End Date Lynda Rasehed MD [address] [place] [id number] PCP - General Family Medicine 02/25/17 Preschool Adviser Relationship Specialty Start Date End Date Lynda Rasheed MD [address] [place] [address], [place] [address] PCP - General Family Medicine 02/25/17 Preschool Adviser Relationship Specialty Start Date End Date Lynda Rasheed MD [address] [place] [address], [place] [address] PCP - General 02/25/17 Preschool Adviser Relationship Specialty Start Date End Date Lynda Rasheed MD [address] [place] [address], [place] [address] PCP - General 02/25/17 Preschool Adviser Relationship Specialty Start Date End Date Lynda Rasheed MD [address] [place] [address], [place] [address] PCP - General 02/25/17 Preschool Adviser Relationship Specialty Start Date End Date Lynda Rasheed MD [address] [place] [address], [place] [address] PCP - General 02/25/17 Preschool Adviser Relationship Specialty Start Date End Date Lynda Rasheed MD [address] [place] [address], [place] [address] PCP - General 02/25/17 Preschool Adviser Relationship Specialty Start Date End Date Lynda Rasheed MD [address] [place] [address], [place] [address] PCP - General 02/25/17 Preschool Adviser Relationship Specialty Start Date End Date Lynda Rasheed MD [address] [place] [address], [place] [address] PCP - General 02/25/17 Preschool Adviser Relationship Specialty Start Date End Date Lynda Rasheed MD [address] [place] [address], [place] [address] PCP - General 02/25/17 Preschool Adviser Relationship Specialty Start Date End Date Lynda Rasheed MD [address] [place] [id number] PCP - General 02/25/17 Preschool Adviser Relationship Specialty Start Date End Date Lynda Rasheed MD [address] [place] [id number] PCP - General 02/25/17 Preschool Adviser Relationship Specialty Start Date End Date Lynda Rasheed MD [address] [place] [id number] PCP - General 02/25/17 Preschool Adviser Relationship Specialty Start Date End Date Lynda Rasheed MD [address] [place] [id number] PCP - General 02/25/17 Preschool Adviser Relationship Specialty Start Date End Date Lynda Rasheed MD [address] [place] [id number] PCP - General 02/25/17 Preschool Adviser Relationship Specialty Start Date End Date Lynda Rasheed MD [address] [place] [id number] PCP - General 02/25/17 Preschool Adviser Relationship Specialty Start Date End Date Lynda Rasheed MD [address] [place] [id number] PCP - General 02/25/17 Preschool Adviser Relationship Specialty Start Date End Date Lynda Rasheed MD [address] [place] [id number] PCP - General 02/25/17 Preschool Adviser Relationship Specialty Start Date End Date Lynda Rasheed MD [address] [place] [id number] PCP - General 02/25/17 Preschool Adviser Relationship Specialty Start Date End Date Lynda Rasheed MD [address] [place] [id number] PCP - General 02/25/17 Preschool Adviser Relationship Specialty Start Date End Date Lynda Rasheed MD [address] [place] [id number] PCP - General 02/25/17 Preschool Adviser Relationship Specialty Start Date End Date Lynda Rasheed MD [address] [place] [id number] PCP - General 02/25/17 Preschool Adviser Relationship Specialty Start Date End Date Lynda Rasheed MD [address] [place] [address] [address] [place] [address] PCP - General 02/25/17 Preschool Adviser Relationship Specialty Start Date End Date Lynda Rasheed MD [address] [place] [address] [address] [place] [address] PCP - General 02/25/17 Preschool Adviser Relationship Specialty Start Date End Date Lynda Rasheed MD [address] [place] [address] [address] [place] [address] PCP - General 02/25/17 Preschool Adviser Relationship Specialty Start Date End Date Lynda Rasheed MD [address] [place] [address] PCP - General 02/25/17 Preschool Adviser Relationship Specialty Start Date End Date Lynda Rasheed MD [address] [place] [address] PCP - General 02/25/17 Preschool Adviser Relationship Specialty Start Date End Date Lynda Rasheed MD [address] [place] [address] PCP - General 02/25/17 Preschool Adviser Relationship Specialty Start Date End Date Lynda Rasheed MD [address] [place] [address] PCP - General 02/25/17 Preschool Adviser Relationship Specialty Start Date End Date Lynda Rasheed MD [address] [place] [address] PCP - General 02/25/17 Preschool Adviser Relationship Specialty Start Date End Date Lynda Rasheed MD [address] [place] [address] PCP - General 02/25/17 Preschool Adviser Relationship Specialty Start Date End Date Lynda Rasheed MD [address] [place] [address] PCP - General 02/25/17 Preschool Adviser Relationship Specialty Start Date End Date Lynda Rasehed MD [address] [place] [address] PCP - General 02/25/17 Preschool Adviser Relationship Specialty Start Date End Date Lynda Rasheed MD [address] [place] [address] PCP - General 02/25/17 Preschool Adviser Relationship Specialty Start Date End Date Lynda Rasheed MD [address] [place] [address] PCP - General 02/25/17 Preschool Adviser Relationship Specialty Start Date End Date Lynda Rasheed MD [address] [place] [address] PCP - General 02/25/17 Preschool Adviser Relationship Specialty Start Date End Date Lynda Rasheed MD [address] [place] [address] PCP - General 02/25/17 Preschool Adviser Relationship Specialty Start Date End Date Lynda Rasheed MD [address] [place] [address] PCP - General 02/25/17 Preschool Adviser Relationship Specialty Start Date End Date Lynda Rasheed MD [address] [place] [address] PCP - General 02/25/17 Preschool Adviser Relationship Specialty Start Date End Date Lynda Rasheed MD [address] [place] [address] PCP - General 02/25/17 Preschool Adviser Relationship Specialty Start Date End Date Lynda Rasheed MD [address] [place] [address] PCP - General 02/25/17 Preschool Adviser Relationship Specialty Start Date End Date Lynda Rasheed MD [address] [place] [address] PCP - General 02/25/17 Preschool Adviser Relationship Specialty Start Date End Date Lynda Rasheed MD [address] [place] [address] PCP - General 02/25/17 Preschool Adviser Relationship Specialty Start Date End Date Lynda Rasheed MD [address] [place] [address] PCP - General 02/25/17 Preschool Adviser Relationship Specialty Start Date End Date Lynda Rasheed MD [address] [place] [address] PCP - General 02/25/17 Preschool Adviser Relationship Specialty Start Date End Date Lynda Rasheed MD [address] [place] [address] PCP - General 02/25/17 Preschool Adviser Relationship Specialty Start Date End Date Lynda Rasheed MD [address] [facility] [place] [address] PCP - General 02/25/17 Preschool Adviser Relationship Specialty Start Date End Date Lynda Rasheed MD [address] [place] [address] PCP - General 02/25/17 Radha Wylie, [employer] Respiratory Therapist Respiratory Therapy 03/02/24 Preschool Adviser Relationship Specialty Start Date End Date Lynda Rasheed MD [address] [place] [address] PCP - General 02/25/17 Radha Wylie, [employer] Respiratory Therapist Respiratory Therapy 03/02/24 Preschool Adviser Relationship Specialty Start Date End Date Lynda Rasheed MD [address] [place] [address] PCP - General 02/25/17 Radha Wylie, [employer] Respiratory Therapist Respiratory Therapy 03/02/24 Preschool Adviser Relationship Specialty Start Date End Date Lynda Rasheed MD [address] [place] [address] PCP - General 02/25/17 Radha Wylie, [employer] Respiratory Therapist Respiratory Therapy 03/02/24 Preschool Adviser Relationship Specialty Start Date End Date Lynda Rasheed MD [address] [place] [address] PCP - General 02/25/17 Radha Wylie, [employer] Respiratory Therapist Respiratory Therapy 03/02/24 Preschool Adviser Relationship Specialty Start Date End Date yLnda Rasheed MD [address] [place] [address] PCP - General 02/25/17 Radha Wylie, [employer] Respiratory Therapist Respiratory Therapy 03/02/24 Preschool Adviser Relationship Specialty Start Date End Date Lynda Rasheed MD [address] [place] [address] PCP - General 02/25/17 Radha Wylie, RUNNER ON Respiratory Therapist Respiratory Therapy 03/02/24 Preschool Adviser Relationship Specialty Start Date End Date Lynda Rasheed MD [address] [place] [address] PCP - General 02/25/17 Radha Wylie, RUNNER ON Respiratory Therapist Respiratory Therapy 03/02/24 Preschool Adviser Relationship Specialty Start Date End Date Lynda Rasheed MD [address] [place] [address] PCP - General 02/25/17 Radha Wylie, [employer]NER ON Respiratory Therapist Respiratory Therapy 03/02/24 Preschool Adviser Relationship Specialty Start Date End Date Lynda Rasheed MD [address] [place] [address] PCP - General 02/25/17 Radha Wylie, RUNNER ON Respiratory Therapist Respiratory Therapy 03/02/24 Preschool Adviser Relationship Specialty Start Date End Date Lynda Rasheed MD [address] [place] [address] PCP - General 02/25/17 Radha Wylie, RUNNER ON Respiratory Therapist Respiratory Therapy 03/02/24 Preschool Adviser Relationship Specialty Start Date End Date Lynda Rasheed MD [address] [place] [address] PCP - General 02/25/17 Radha Wylie, RUNNER ON Respiratory Therapist Respiratory Therapy 03/02/24 Preschool Adviser Relationship Specialty Start Date End Date Lynda Rasheed MD [address] [place] [address] PCP - General 02/25/17 Radha Wylie, RUNNER ON Respiratory Therapist Respiratory Therapy 03/02/24 Preschool Adviser Relationship Specialty Start Date End Date Lynda Rasheed MD [address] [place] [address] PCP - General 02/25/17 Radha Wylie, RUNNER ON Respiratory Therapist Respiratory Therapy 03/02/24 Preschool Adviser Relationship Specialty Start Date End Date Lynda Rasheed MD [address] [place] [address] PCP - General 02/25/17 Radha Wylie, RUNNER ON Respiratory Therapist Respiratory Therapy 03/02/24 Preschool Adviser Relationship Specialty Start Date End Date Lynda Rasheed MD [address] [place] [address] PCP - General 02/25/17 Radha Wylie, RUNNER ON Respiratory Therapist Respiratory Therapy 03/02/24 Preschool Adviser Relationship Specialty Start Date End Date Lynda Rasheed MD [address] [place] [address] PCP - General 02/25/17 Radha Wylie, RUNNER ON Respiratory Therapist Respiratory Therapy 03/02/24 Preschool Adviser Relationship Specialty Start Date End Date Lynda Rasheed MD [address] [place] [address] PCP - General 02/25/17 Radha Wylie, [facility] Respiratory Therapist Respiratory Therapy 03/02/24 Preschool Adviser Relationship Specialty Start Date End Date Lynda Rasheed MD [address] [place], [place] [address] PCP - General 02/25/17 Radha Wylie, [facility] Respiratory Therapist Respiratory Therapy 03/02/24 Preschool Adviser Relationship Specialty Start Date End Date Lynda Rasheed MD [address] [place], [place] [id number] PCP - General 02/25/17 Radha Wylie, [facility] Respiratory Therapist Respiratory Therapy 03/02/24 Preschool Adviser Relationship Specialty Start Date End Date Lynda Rasheed MD [address] [place], [place] [address] PCP - General 02/25/17 Radha Wylie, [facility] Respiratory Therapist Respiratory Therapy 03/02/24 Scheduled Active and Recently Administ ered Medications (unrecognized section and content) Medication Order 06/07/2021 06/08/2021 06/09/2021 0.9 % sodium chloride bolus (COMPLETED) 1,000 mL (10.8 mL/kg), IntraVENous, at 1,000 mL/hr, Administer over 1 Hours, ONCE, On Sat06/07/21 at 1130, For 1 dose 1144 (New Bag - Provider: Sergey Velarde, JAY)1325 (Stopped - Provider: Sergey Velarde RN) amLODIPine (NORVASC) tablet 5 mg 5 mg, Oral, DAILY, First dose on Sat06/09/21 at 1030 1158 (Given - Provider: Lauren Alexander RN) cefTRIAXone sodium 1,000 mg in dextrose 5 % 50 mL IVPB (add-vantage) (CANCELED) 1,000 mg, IntraVENous, EVERY 24 HOURS, First dose (after last reorder) on Sat06/07/21 at 1800, Until Discontinued 1706 (New Bag - Provider: Sergey Velarde RN)1800 (Stopped - Provider: Sergey Velarde RN) folic acid (FOLVITE) tablet 1 mg 1 mg, Oral, DAILY, First dose on Sat06/07/21 at 0900 0941 (Given - Provider: Sergey Velarde RN) 1200 (Given - Provider: Evelin Olivera RN) 0841 (Given - Provider: Lauren Alexander RN) gabapentin (NEURONTIN) capsule 600 mg 600 mg, Oral, 3 TIMES DAILY, First dose on Sat06/07/21 at 0900 0940 (Given - Provider: Sergey Velarde RN)1348 (Given - Provider: Sergey Velarde RN)2115 (Given - Provider: Nancy Beal RN) 1000 (Not Given - Provider: Evelin Olivera RN - Reason: Patient not available - Comment: patient off unit for procedure)1446 (Given - Provider: Evelin Olivera RN)2052 (Given - Provider: Evelin Duncan RN) 0841 (Given - Provider: Lauren Alexander, JAY)1521 (Given - Provider: Lauren Alexander RN)2100 (Due) ipratropium-albuterol (DUONEB) nebulizer solution 1 ampule 1 ampule, Inhalation, 2 TIMES DAILY, First dose on Mounika 06/08/21 at 1145 1132 (Not Given - Provider: Landen Cesar RCP - Reason: Patient not available)1518 (Given - Provider: Landen Cesar RCP) 0924 (Given - Provider: Kenrick López RCP)2100 (Due) magnesium sulfate 2000 mg in 50 mL IVPB premix (COMPLETED) 2,000 mg, IntraVENous, at 25 mL/hr, Administer over 2 Hours, ONCE, On Sat06/07/21 at 1200, For 1 dose, Recommended infusion rate not to exceed 1,000 mg (milligrams) per hour. 1145 (New Bag - Provider: Sergey Velarde RN)1348 (Stopped - Provider: Sergey Velarde, JAY) multivitamin 1 tablet 1 tablet, Oral, DAILY, First dose on Sat06/07/21 at 0900 0941 (Given - Provider: Sergey Velarde, RN) 1200 (Given - Provider: Evelin Olivera RN) 0841 (Given - Provider: Lauren Alexander RN) pantoprazole (PROTONIX) injection 40 mg (CANCELED) 40 mg, IntraVENous, 2 TIMES DAILY, First dose on Sat06/07/21 at 0900, Reconstitute with 10 mL 0.9 % sodium chloride and administer over at least 2 minutes. 0941 (Given - Provider: Sergey Velarde, JAY)2116 (Given - Provider: Nancy Beal, JAY) 1159 (Given - Provider: Evelin Olivera, RN) pantoprazole (PROTONIX) tablet 40 mg 40 mg, Oral, DAILY BEFORE BREAKFAST, First dose on Sat06/09/21 at 0700, Do not crush or break. 0650 (Given - Provider: Evelin Duncan, JAY) PHENobarbital (LUMINAL) 190 mg in sodium chloride 0.9 % 100 mL IVPB (COMPLETED) 190 mg (2.04 mg/kg), IntraVENous, at 300 mL/hr, Administer over 20 Minutes, ONCE, On Sat06/07/21 at 0230, For 1 dose 0251 (New Bag - Provider: Citlali Capps, RN)0336 (Stopped - Provider: Citlali Capps, RN) PHENobarbital (LUMINAL) tablet 16.2 mg(Linked Group 1) 16.2 mg, Oral, EVERY 6 HOURS, First dose on 06/11/21 at 0600, For 4 doses, Hold if patient unarousable PHENobarbital (LUMINAL) tablet 32.4 mg(Linked Group 1) 32.4 mg, Oral, EVERY 6 HOURS, First dose on 06/10/21 at 0600, For 4 doses, Hold if patient unarousable PHENobarbital (LUMINAL) tablet 64.8 mg 64.8 mg, Oral, EVERY 6 HOURS, First dose (after last modification) on Mounika 06/08/21 at 1800, For 6 doses, Hold for sedation 1800 (Given - Provider: Evelin Olivera RN) 0039 (Given - Provider: Evelin Duncan, RN)0650 (Given - Provider: Evelin Duncan RN)1158 (Given - Provider: Lauren Alexander RN)1800 (Due) PHENobarbital (LUMINAL) tablet 97.2 mg (CANCELED) 97.2 mg, Oral, EVERY 4 HOURS, First dose on Sat06/07/21 at 1345, Hold for sedation 1348 (Given - Provider: Sergey Velarde RN)1708 (Given - Provider: Sergey Velarde RN)211 (Given - Provider: Nancy Beal RN) 0139 (Not Given - Provider: Nancy Beal RN - Reason: Order parameters not met)0524 (Given - Provider: Nancy Beal RN)1000 (Not Given - Provider: Evelin Olivera RN - Reason: Patient not available - Comment: off floor for procedure)1200 (Given - Provider: Evelin Olivera RN - Comment: patient was off the unit for AM dose) predniSONE (DELTASONE) tablet 10 mg(Linked Group 2) 10 mg, Oral, DAILY, First dose on 06/14/21 at 0900, For 3 doses predniSONE (DELTASONE) tablet 15 mg(Linked Group 2) 15 mg, Oral, DAILY, First dose on 06/11/21 at 0900, For 3 doses predniSONE (DELTASONE) tablet 20 mg(Linked Group 2) 20 mg, Oral, DAILY, First dose on Mounika 06/08/21 at 1145, For 3 doses 1446 (Given - Provider: Evelin Olivera RN) 0846 (Given - Provider: Lauren Alexander, JAY) predniSONE (DELTASONE) tablet 5 mg(Linked Group 2) 5 mg, Oral, DAILY, First dose on 06/17/21 at 0900, For 3 doses rosuvastatin (CRESTOR) tablet 10 mg 10 mg, Oral, NIGHTLY, First dose on Sat06/07/21 at 0100 0150 (Not Given - Provider: Citlali Capps RN - Reason: Patient took at home)2114 (Given - Provider: Nancy Beal RN) 205 (Given - Provider: Evelin Duncan RN) 2100 (Due) sodium chloride (PF) 0.9 % injection 10 mL 10 mL, IntraVENous, DAILY, First dose on Tu06/06/21 at 1636, Use for IV pantoprazole reconstitution. 0941 (Given - Provider: Sergey Velarde RN) 1203 (Given - Provider: Evelin Olivera RN) 0842 (Canceled Entry - Provider: Lauren Alexander RN) sodium chloride (PF) 0.9 % injection 10 mL 10 mL, IntraVENous, 2 times daily, First dose on Sat06/07/21 at 0900, Use for IV pantoprazole reconstitution. 0941 (Given - Provider: Sergey Velarde RN)2116 (Given - Provider: Nancy Beal RN) 1202 (Given - Provider: Evelin Olivera RN)2053 (Not Given - Provider: Evelin Duncan RN - Reason: Other) 0842 (Given - Provider: Lauren Alexander RN)2100 (Due) sodium chloride flush 0.9 % injection 3 mL(Linked Group 3) 3 mL, IntraVENous, EVERY 8 HOURS, First dose on Sat06/06/21 at 1635, Flush line with 3-5 mL 0100 (Given - Provider: Citlali Capps RN)0942 (Not Given - Provider: Sergey Velarde RN - Reason: Other)1446 (Not Given - Provider: Sergey Velarde RN - Reason: Other) 0011 (Not Given - Provider: Nancy Beal RN - Reason: Other)1204 (Not Given - Provider: Evelin Olivera RN - Reason: Patient not available - Comment: patient off unit for procedure and duplicate orders)1817 (Not Given - Provider: Evelin Olivera RN - Reason: IV Fluid Infusing) 0039 (Not Given - Provider: Evelin Duncan RN - Reason: IV Fluid Infusing)0842 (Canceled Entry - Provider: Lauren Alexander, JAY)1635 (Due) sodium chloride flush 0.9 % injection 5-40 mL 5-40 mL, IntraVENous, EVERY 12 HOURS SCHEDULED (2 times per day), First dose on Sat06/08/21 at 0900, For Line Patency: Peripheral IV = 5 mL; Midline or Central Line = 10 mL/lumen. If following IV push medication, administer flush at same rate as the IV push. Flush volume is determined by type of infusion therapy being given. For non-viscous solutions use: Peripheral IV = 5 mL Midline or Central Line = 10 mL/lumen For viscous solutions (i.e. blood components, parenteral nutrition, contrast media, or after obtaining blood sample) use: Peripheral IV = 10 mL Midline or Central Line = 20 mL/lumen, Pre-procedure(GI) 1204 (Not Given - Provider: Evelin Olivera RN - Reason: Patient not available - Comment: patient off unit for procedure and duplicate orders)2052 (Not Given - Provider: Evelin Duncan RN - Reason: IV Fluid Infusing) 0842 (Canceled Entry - Provider: Lauren Alexander, JAY)2100 (Due) thiamine mononitrate tablet 100 mg 100 mg, Oral, 3 times daily, First dose on Sat06/07/21 at 0900 0940 (Given - Provider: Sergey Velarde RN)1348 (Given - Provider: Sergey Velarde RN)2115 (Given - Provider: Nancy Beal RN) 1200 (Given - Provider: Evelin Olivera RN)1446 (Given - Provider: Evelin Olivera RN)205 (Given - Provider: Evelin Duncan RN) 0841 (Given - Provider: Lauren Alexander RN)1521 (Given - Provider: Lauren Alexander RN)2100 (Due) Continuous Medication Order 06/07/2021 06/08/2021 06/09/2021 lactated ringers infusion (CANCELED) IntraVENous, at 125 mL/hr, CONTINUOUS, Starting on Sat06/07/21 at 1130 1325 (New Bag - Provider: Sergey Velarde RN) 0525 (New Bag - Provider: Nancy Beal RN)1800 (New Bag - Provider: Evelin Olivera RN) 0850 (Stopped - Provider: Lauren Alexander RN) octreotide (SANDOSTATIN) 500 mcg in sodium chloride 0.9 % 100 mL infusion (CANCELED) 50 mcg/hr (10 mL/hr), IntraVENous, CONTINUOUS, Starting on Sat06/06/21 at 1636 0940 (New Bag - Provider: Sergey Velarde RN) 0524 (New Bag - Provider: Nancy Beal RN)1800 (New Bag - Provider: Evelin Olivera RN) 0850 (Stopped - Provider: Lauren Alexander RN - Comment: was not running when i came in) PRN Medication Order 06/07/2021 06/08/2021 06/09/2021 0.9 % sodium chloride infusion 25 mL, IntraVENous, at 100 mL/hr, PRN, If patient receiving piggyback infusions without ordered maintenance IV fluids or with frequent/long duration piggyback infusions, Starting on Sat06/07/21 at 0040, Administer at the same rate as the piggyback being infused. 0.9 % sodium chloride infusion 25 mL, IntraVENous, at 100 mL/hr, PRN, If patient receiving piggyback infusions without ordered maintenance IV fluids or with frequent/long duration piggyback infusions, Starting on Mounika 06/08/21 at 0724, Administer at the same rate as the piggyback being infused., Pre-procedure(GI) acetaminophen (TYLENOL) suppository 650 mg(Linked Group 4) 650 mg, Rectal, EVERY 6 HOURS PRN, Pain Mild (1-3), Fever, For temp greater than 100.4 F (38 C), Starting on Sat06/07/21 at 0040, Administer if oral route cannot be used. acetaminophen (TYLENOL) tablet 650 mg(Linked Group 4) 650 mg, Oral, EVERY 6 HOURS PRN, Pain Mild (1-3), Fever, For temp greater than 100.4 F (38 C), Starting on Sat06/07/21 at 0040, Maximum dose of acetaminophen is 4000 mg from all sources in 24 hours. albuterol sulfate HFA 108 (90 Base) MCG/ACT inhaler 2 puff 2 puff, Inhalation, EVERY 6 HOURS PRN, Wheezing, Shortness of Breath, Starting on Sat06/07/21 at 0040 LORazepam (ATIVAN) injection 1 mg(Linked Group 5) 1 mg, IntraVENous, EVERY 1 HOUR PRN (WITHDRAWAL), Withdrawal, For alcohol withdrawal., Starting on Sat06/07/21 at 0040, For CIWA score 8 to 10. If both oral and intravenous CIWA medications ordered, use intravenous if unable to tolerate oral equivalent. Reassess CIWA one hour after each dose of medication and as needed. 0727 (See Alternative - Provider: Sergey Velarde RN)0940 (See Alternative - Provider: Sergey Velarde RN) LORazepam (ATIVAN) injection 2 mg(Linked Group 5) 2 mg, IntraVENous, EVERY 1 HOUR PRN (WITHDRAWAL), Withdrawal, For alcohol withdrawal., Starting on Sat06/07/21 at 0040, For CIWA score 11 to 15. If both oral and intravenous CIWA medications ordered, use intravenous if unable to tolerate oral equivalent. Reassess CIWA one hour after each dose of medication and as needed. 0727 (See Alternative - Provider: Sergey Velarde RN)0940 (See Alternative - Provider: Sergey Velarde RN) LORazepam (ATIVAN) injection 3 mg(Linked Group 5) 3 mg, IntraVENous, EVERY 1 HOUR PRN (WITHDRAWAL), Withdrawal, For alcohol withdrawal., Starting on Sat06/07/21 at 0040, For CIWA score 16 to 20. If both oral and intravenous CIWA medications ordered, use intravenous if unable to tolerate oral equivalent. Reassess CIWA one hour after each dose of medication and as needed. 0727 (See Alternative - Provider: Sergey Velarde RN)0940 (See Alternative - Provider: Sergey Velared RN) LORazepam (ATIVAN) injection 4 mg(Linked Group 5) 4 mg, IntraVENous, EVERY 1 HOUR PRN (WITHDRAWAL), Withdrawal, For alcohol withdrawal., Starting on Sat06/07/21 at 0040, For CIWA score greater than 20. If both oral and intravenous CIWA medications ordered, use intravenous if unable to tolerate oral equivalent. Reassess CIWA one hour after each dose of medication and as needed. 0727 (See Alternative - Provider: Sergey Velarde RN)0940 (See Alternative - Provider: Sergey Velarde RN) LORazepam (ATIVAN) tablet 1 mg(Linked Group 5) 1 mg, Oral, EVERY 1 HOUR PRN (WITHDRAWAL), For alcohol withdrawal., Starting on Sat06/07/21 at 0040, For CIWA score 8 to 10. Reassess CIWA one hour after each dose of medication and as needed. 0727 (Given - Provider: Sergey Velarde RN)0940 (Given - Provider: Sergey Velarde RN) LORazepam (ATIVAN) tablet 2 mg(Linked Group 5) 2 mg, Oral, EVERY 1 HOUR PRN (WITHDRAWAL), For alcohol withdrawal., Starting on Sat06/07/21 at 0040, For CIWA score 11 to 15. Reassess CIWA one hour after each dose of medication and as needed. 0727 (See Alternative - Provider: Sergey Velarde RN)0940 (See Alternative - Provider: Sergey Velarde RN) LORazepam (ATIVAN) tablet 3 mg(Linked Group 5) 3 mg, Oral, EVERY 1 HOUR PRN (WITHDRAWAL), For alcohol withdrawal., Starting on Sat06/07/21 at 0040, For CIWA score 16 to 20. Reassess CIWA one hour after each dose of medication and as needed. 0727 (See Alternative - Provider: Sergey Velarde RN)0940 (See Alternative - Provider: Sergey Velarde RN) LORazepam (ATIVAN) tablet 4 mg(Linked Group 5) 4 mg, Oral, EVERY 1 HOUR PRN (WITHDRAWAL), For alcohol withdrawal., Starting on Sat06/07/21 at 0040, For CIWA score greater than 20. Reassess CIWA one hour after each dose of medication and as needed. 0727 (See Alternative - Provider: Sergey Velarde RN)0940 (See Alternative - Provider: Sergey Velarde RN) ondansetron (ZOFRAN) injection 4 mg(Linked Group 6) 4 mg, IntraVENous, EVERY 6 HOURS PRN, Nausea, Vomiting, Starting on Sat06/07/21 at 0040, Administer if oral route cannot be used. ondansetron (ZOFRAN-ODT) disintegrating tablet 4 mg(Linked Group 6) 4 mg, Oral, EVERY 8 HOURS PRN, Nausea, Vomiting, Starting on Sat06/07/21 at 0040 polyethylene glycol (GLYCOLAX) packet 17 g 17 g, Oral, DAILY PRN, Constipation, Starting on Sat06/07/21 at 0040, First line therapy for constipation sodium chloride flush 0.9 % injection 5-40 mL 5-40 mL, IntraVENous, PRN, Line Care, After every IV line use, Starting on Sat06/07/21 at 0040, For Line Patency: Peripheral IV = 5 mL; Midline or Central Line = 10 mL/lumen. If following IV push medication, administer flush at same rate as the IV push. Flush volume is determined by type of infusion therapy being given. For non-viscous solutions use: Peripheral IV = 5 mL Midline or Central Line = 10 mL/lumen For viscous solutions (i.e. blood components, parenteral nutrition, contrast media, or after obtaining blood sample) use: Peripheral IV = 10 mL Midline or Central Line = 20 mL/lumen sodium chloride flush 0.9 % injection 5-40 mL 5-40 mL, IntraVENous, PRN, Line Care, After every IV line use, Starting on Mounika 06/08/21 at 0724, For Line Patency: Peripheral IV = 5 mL; Midline or Central Line = 10 mL/lumen. If following IV push medication, administer flush at same rate as the IV push. Flush volume is determined by type of infusion therapy being given. For non-viscous solutions use: Peripheral IV = 5 mL Midline or Central Line = 10 mL/lumen For viscous solutions (i.e. blood components, parenteral nutrition, contrast media, or after obtaining blood sample) use: Peripheral IV = 10 mL Midline or Central Line = 20 mL/lumen, Pre-procedure(GI) Linked Groups Order Group 1: PHENobarbital (LUMINAL) tablet 32.4 mgJump to med 32.4 mg, Oral, EVERY 6 HOURS, First dose on 06/10/21 at 0600, For 4 doses
Hold if patient unarousable
Followed by PHENobarbital (LUMINAL) tablet 16.2 mgJump to med 16.2 mg, Oral, EVERY 6 HOURS, First dose on 06/11/21 at 0600, For 4 doses
Hold if patient unarousable
Group 2: predniSONE (DELTASONE) tablet 20 mgJump to med 20 mg, Oral, DAILY, First dose on Mounika 06/08/21 at 1145, For 3 doses Followed by predniSONE (DELTASONE) tablet 15 mgJump to med 15 mg, Oral, DAILY, First dose on 06/11/21 at 0900, For 3 doses Followed by predniSONE (DELTASONE) tablet 10 mgJump to med 10 mg, Oral, DAILY, First dose on 06/14/21 at 0900, For 3 doses Followed by predniSONE (DELTASONE) tablet 5 mgJump to med 5 mg, Oral, DAILY, First dose on Sat06/17/21 at 0900, For 3 doses Group 3: Saline lock IV (COMPLETED) Routine, CONTINUOUS, Starting on Sat06/06/21 at 1645, Until Specified And sodium chloride flush 0.9 % injection 3 mLJump to med 3 mL, IntraVENous, EVERY 8 HOURS, First dose on Sat06/06/21 at 1635
Flush line with 3-5 mL
Group 4: acetaminophen (TYLENOL) tablet 650 mgJump to med 650 mg, Oral, EVERY 6 HOURS PRN, Pain Mild (1-3), Fever, For temp greater than 100.4 F (38 C), Starting on Sat06/07/21 at 0040
Maximum dose of acetaminophen is 4000 mg from all sources in 24 hours.
Or acetaminophen (TYLENOL) suppository 650 mgJump to med 650 mg, Rectal, EVERY 6 HOURS PRN, Pain Mild (1-3), Fever, For temp greater than 100.4 F (38 C), Starting on Sat06/07/21 at 0040
Administer if oral route cannot be used.
Group 5: LORazepam (ATIVAN) tablet 1 mgJump to med 1 mg, Oral, EVERY 1 HOUR PRN (WITHDRAWAL), For alcohol withdrawal., Starting on Sat06/07/21 at 0040
For CIWA score 8 to 10. Reassess CIWA one hour after each dose of medication and as needed.
Or LORazepam (ATIVAN) injection 1 mgJump to med 1 mg, IntraVENous, EVERY 1 HOUR PRN (WITHDRAWAL), Withdrawal, For alcohol withdrawal., Starting on Sat06/07/21 at 0040
For CIWA score 8 to 10. If both oral and intravenous CIWA medications ordered, use intravenous if unable to tolerate oral equivalent. Reassess CIWA one hour after each dose of medication and as needed.
Or LORazepam (ATIVAN) tablet 2 mgJump to med 2 mg, Oral, EVERY 1 HOUR PRN (WITHDRAWAL), For alcohol withdrawal., Starting on Sat06/07/21 at 0040
For CIWA score 11 to 15. Reassess CIWA one hour after each dose of medication and as needed.
Or LORazepam (ATIVAN) injection 2 mgJump to med 2 mg, IntraVENous, EVERY 1 HOUR PRN (WITHDRAWAL), Withdrawal, For alcohol withdrawal., Starting on Sat06/07/21 at 0040
For CIWA score 11 to 15. If both oral and intravenous CIWA medications ordered, use intravenous if unable to tolerate oral equivalent. Reassess CIWA one hour after each dose of medication and as needed.
Or LORazepam (ATIVAN) tablet 3 mgJump to med 3 mg, Oral, EVERY 1 HOUR PRN (WITHDRAWAL), For alcohol withdrawal., Starting on Sat06/07/21 at 0040
For CIWA score 16 to 20. Reassess CIWA one hour after each dose of medication and as needed.
Or LORazepam (ATIVAN) injection 3 mgJump to med 3 mg, IntraVENous, EVERY 1 HOUR PRN (WITHDRAWAL), Withdrawal, For alcohol withdrawal., Starting on Sat06/07/21 at 0040
For CIWA score 16 to 20. If both oral and intravenous CIWA medications ordered, use intravenous if unable to tolerate oral equivalent. Reassess CIWA one hour after each dose of medication and as needed.
Or LORazepam (ATIVAN) tablet 4 mgJump to med 4 mg, Oral, EVERY 1 HOUR PRN (WITHDRAWAL), For alcohol withdrawal., Starting on Sat06/07/21 at 0040
For CIWA score greater than 20. Reassess CIWA one hour after each dose of medication and as needed.
Or LORazepam (ATIVAN) injection 4 mgJump to med 4 mg, IntraVENous, EVERY 1 HOUR PRN (WITHDRAWAL), Withdrawal, For alcohol withdrawal., Starting on Sat06/07/21 at 0040
For CIWA score greater than 20. If both oral and intravenous CIWA medications ordered, use intravenous if unable to tolerate oral equivalent. Reassess CIWA one hour after each dose of medication and as needed.
Group 6: ondansetron (ZOFRAN-ODT) disintegrating tablet 4 mgJump to med 4 mg, Oral, EVERY 8 HOURS PRN, Nausea, Vomiting, Starting on Sat06/07/21 at 0040 Or ondansetron (ZOFRAN) injection 4 mgJump to med 4 mg, IntraVENous, EVERY 6 HOURS PRN, Nausea, Vomiting, Starting on Sat06/07/21 at 0040
Administer if oral route cannot be used.
Scheduled Medication Order 09/27/2021 09/28/2021 09/29/2021 folic acid (FOLVITE) tablet 1 mg 1 mg, Oral, DAILY, First dose on Sat09/27/21 at 0900, Until Discontinued 08 (Given - Provider: Rena De La Fuente RN) 08 (Given - Provider: Rena De La Fuente RN) 08 (Given - Provider: Larry Morris, AJY) melatonin tablet 5 mg 5 mg, Oral, NIGHTLY, First dose on Sat09/28/21 at 2100, Until Discontinued 1942 (Given - Provider: Kasie Gay, JAY) 2099 (Due) nicotine (NICODERM CQ) 21 MG/24HR 1 patch 1 patch, TransDERmal, Administer over 24 Hours, DAILY, First dose on Sat09/27/21 at 0300, Apply new patch to nonhairy, clean, dry skin on the upper body or upper outer arm. Rotate patch sites. Notify pharmacy if patient or provider prefers patch to be removed at bedtime and replaced in the morning. Hazardous Medication -- Refer to facility policy for handling and disposal. 0607 (Patch Applied - Provider: Juarez Avalos RN) 0631 (Patch Removed - Provider: Kasie Gay RN)08 (Patch Applied - Provider: Rena De La Fuente, JAY) 0803 (Patch Removed - Provider: Larry Morris, RN)0808 (Patch Applied - Provider: Larry Morris, JAY) pantoprazole (PROTONIX) 40 mg in sodium chloride (PF) 10 mL injection (CANCELED) 40 mg, IntraVENous, EVERY 12 HOURS, First dose (after last modification) on Sat09/27/21 at 0900, Reconstitute with 10 mL 0.9 % sodium chloride and administer over at least 2 minutes. 0814 (Given - Provider: Rena De La Fuente RN) pantoprazole (PROTONIX) tablet 40 mg 40 mg, Oral, DAILY BEFORE BREAKFAST, First dose on Sat09/28/21 at 0700, Until Discontinued, Do not crush or break. 0630 (Given - Provider: Kasie Gay RN) 0336 (Given - Provider: Kasie Gay RN) PHENobarbital (LUMINAL) tablet 100 mg 100 mg, Oral, EVERY 4 HOURS, First dose on Sat09/27/21 at 1100, Until Discontinued 1043 (Given - Provider: Rena De La Fuente RN)1515 (Given - Provider: Rena De La Fuente RN)1937 (Given - Provider: Kasie Gay RN)2304 (Given - Provider: Kasie Gay RN) 0358 (Given - Provider: Kasie Gay RN)0801 (Given - Provider: Rena De La Fuente RN)1232 (Given - Provider: Rena De La Fuente RN)1603 (Not Given - Provider: Rena De La Fuente RN - Reason: Patient/family refused)1943 (Given - Provider: Kasie Gay RN)2343 (Given - Provider: Kasie Gay RN) 0335 (Given - Provider: Kasie Gay RN)0808 (Given - Provider: Larry Morris RN)1200 (Due - Provider: Hui Barker [facility])1600 (Due - Provider: Hui Barker [facility])2000 (Due - Provider: Hui Barker [facility]) sodium chloride flush 0.9 % injection 5-40 mL 5-40 mL, IntraVENous, EVERY 12 HOURS SCHEDULED (2 times per day), First dose on Sat09/27/21 at 0900, Until Discontinued, For Line Patency: Peripheral IV = 5 mL; Midline or Central Line = 10 mL/lumen. If following IV push medication, administer flush at same rate as the IV push. Flush volume is determined by type of infusion therapy being given. For non-viscous solutions use: Peripheral IV = 5 mL Midline or Central Line = 10 mL/lumen For viscous solutions (i.e. blood components, parenteral nutrition, contrast media, or after obtaining blood sample) use: Peripheral IV = 10 mL Midline or Central Line = 20 mL/lumen 0148 (Given - Provider: Alex Aguila RN)0816 (Not Given - Provider: Rena De La Fuente RN - Reason: IV Fluid Infusing) 0631 (Not Given - Provider: Kasie Gay RN - Reason: IV Fluid Infusing)0757 (Not Given - Provider: Rena De La Fuente RN - Reason: IV Fluid Infusing)1945 (Not Given - Provider: Kasie Gay RN - Reason: IV Fluid Infusing) 0816 (Not Given - Provider: Larry Morris RN - Reason: IV Fluid Infusing)2100 (Due) thiamine tablet 100 mg 100 mg, Oral, DAILY, First dose on Sat09/27/21 at 0900, Until Discontinued 0814 (Given - Provider: Rena De La Fuente RN) 0801 (Given - Provider: Rena De La Fuente RN) 0808 (Given - Provider: Larry Morris RN) Continuous Medication Order 09/27/2021 09/28/2021 09/29/2021 0.9 % sodium chloride infusion IntraVENous, at 100 mL/hr, CONTINUOUS, Starting on Sat09/27/21 at 0345 0353 (New Bag - Provider: Juarez Avalos RN)2309 (New Bag - Provider: Kasie Gay RN) 0803 (New Bag - Provider: Rena De La Fuente RN) 1119 (Stopped - Provider: Larry Morris RN) PRN Medication Order 09/27/2021 09/28/2021 09/29/2021 0.9 % sodium chloride infusion IntraVENous, at 5-250 mL/hr, PRN, if patient receiving piggyback infusions and maintenance fluids are not ordered OR KVO fluids to protect IV site / prevent frequent line interruptions/ long duration, Starting on Sat09/27/21 at 0102, For piggyback infusion, administer at same rate as piggyback for a total of 25 mL. Enter 25 mL into dose field and piggyback rate into rate field of order. If piggyback is infusing at a rate less than 100 mL/hr, enter 25 mL into dose field and 100 mL/hr into rate field of order. For KVO fluids, enter rate of 20 mL/hr or less into rate field of order. acetaminophen (TYLENOL) suppository 650 mg(Linked Group 1) 650 mg, Rectal, EVERY 6 HOURS PRN, Starting on Sat09/27/21 at 0102, Until Discontinued, Pain Mild (1-3), Fever, For temp greater than 100.4 F (38 C), Administer if oral route cannot be used. acetaminophen (TYLENOL) tablet 650 mg(Linked Group 1) 650 mg, Oral, EVERY 6 HOURS PRN, Starting on Sat09/27/21 at 0102, Until Discontinued, Pain Mild (1-3), Fever, For temp greater than 100.4 F (38 C), Maximum dose of acetaminophen is 4000 mg from all sources in 24 hours. hydrALAZINE (APRESOLINE) injection 5 mg (COMPLETED) 5 mg, IntraVENous, ONCE PRN, 1 dose, Starting on Sat09/28/21 at 0051, Until Sat09/28/21 at 0120, High Blood Pressure, SBP>160 OR DBP>90 0120 (Given - Provider: Kasie Gay, JAY) hydrALAZINE (APRESOLINE) injection 5 mg (COMPLETED) 5 mg, IntraVENous, ONCE PRN, 1 dose, Starting on Sat09/28/21 at 2336, Until Sat09/28/21 at 2343, High Blood Pressure, SBP>160 OR DBP>90 2343 (Given - Provider: Kasie Gay, JAY) LORazepam (ATIVAN) injection 1 mg(Linked Group 2) 1 mg, IntraVENous, EVERY 1 HOUR PRN (WITHDRAWAL), Starting on Sat09/27/21 at 0108, Until Discontinued, Withdrawal, For alcohol withdrawal., For CIWA score 8 to 10. If both oral and intravenous CIWA medications ordered, use intravenous if unable to tolerate oral equivalent. Reassess CIWA one hour after each dose of medication and as needed. 0604 (See Alternative - Provider: Juarez Avalos RN)0822 (See Alternative - Provider: Rena De La Fuente, JAY)1739 (Given - Provider: Rena De La Fuente RN)1946 (Given - Provider: Kasie Gay, JAY)2308 (Given - Provider: Kasie Gay, JAY) 1020 (Given - Provider: Rena De La Fuente RN)2343 (See Alternative - Provider: Kaise Gay, JAY) LORazepam (ATIVAN) injection 2 mg(Linked Group 2) 2 mg, IntraVENous, EVERY 1 HOUR PRN (WITHDRAWAL), Starting on Sat09/27/21 at 0108, Until Discontinued, Withdrawal, For alcohol withdrawal., For CIWA score 11 to 15. If both oral and intravenous CIWA medications ordered, use intravenous if unable to tolerate oral equivalent. Reassess CIWA one hour after each dose of medication and as needed. 0604 (See Alternative - Provider: Juarez Avalos RN)0822 (Given - Provider: Rena De La Fuente RN)1739 (See Alternative - Provider: Rena De La Fuente RN)194 (See Alternative - Provider: Kasie Gay RN)230 (See Alternative - Provider: Kasie Gay RN) 1020 (See Alternative - Provider: Rena De La Fuente RN)2343 (Given - Provider: Kasie Gay RN) LORazepam (ATIVAN) injection 3 mg(Linked Group 2) 3 mg, IntraVENous, EVERY 1 HOUR PRN (WITHDRAWAL), Starting on Sat09/27/21 at 0108, Until Discontinued, Withdrawal, For alcohol withdrawal., For CIWA score 16 to 20. If both oral and intravenous CIWA medications ordered, use intravenous if unable to tolerate oral equivalent. Reassess CIWA one hour after each dose of medication and as needed. 0604 (Given - Provider: Juarez Avalos RN)0822 (See Alternative - Provider: Rena De La Fuente RN)173 (See Alternative - Provider: Rena De La Fuente RN)1945 (See Alternative - Provider: Kasie Gay RN)2307 (See Alternative - Provider: Kasie Gay RN) 1020 (See Alternative - Provider: Rena De La Fuente RN)2343 (See Alternative - Provider: Kasie Gay, JAY) LORazepam (ATIVAN) injection 4 mg(Linked Group 2) 4 mg, IntraVENous, EVERY 1 HOUR PRN (WITHDRAWAL), Starting on Sat09/27/21 at 0108, Until Discontinued, Withdrawal, For alcohol withdrawal., For CIWA score greater than 20. If both oral and intravenous CIWA medications ordered, use intravenous if unable to tolerate oral equivalent. Reassess CIWA one hour after each dose of medication and as needed. 0604 (See Alternative - Provider: Juarez Avalos RN)0822 (See Alternative - Provider: Rena De La Fuente RN)1739 (See Alternative - Provider: Rena De La Fuente RN)1945 (See Alternative - Provider: Kasie Gay RN)2307 (See Alternative - Provider: Kasie Gay RN) 102 (See Alternative - Provider: Rena De La Fuente RN)2343 (See Alternative - Provider: Kasie Gay RN) LORazepam (ATIVAN) tablet 1 mg(Linked Group 2) 1 mg, Oral, EVERY 1 HOUR PRN (WITHDRAWAL), Starting on Sat09/27/21 at 0108, Until Discontinued, For alcohol withdrawal., For CIWA score 8 to 10. Reassess CIWA one hour after each dose of medication and as needed. 0604 (See Alternative - Provider: Juarez Avalos RN)0822 (See Alternative - Provider: Rena De La Fuente RN)1738 (See Alternative - Provider: Rena De La Fuente RN)1945 (See Alternative - Provider: Kasie Gay RN)2307 (See Alternative - Provider: Kasie Gay RN) 102 (See Alternative - Provider: Rena De La Fuente RN)2343 (See Alternative - Provider: Kasie Gay RN) LORazepam (ATIVAN) tablet 2 mg(Linked Group 2) 2 mg, Oral, EVERY 1 HOUR PRN (WITHDRAWAL), Starting on Sat09/27/21 at 0108, Until Discontinued, For alcohol withdrawal., For CIWA score 11 to 15. Reassess CIWA one hour after each dose of medication and as needed. 0604 (See Alternative - Provider: Juarez Avalos RN)0822 (See Alternative - Provider: Rena De La Fuente RN)1738 (See Alternative - Provider: Rena De La Fuente RN)1945 (See Alternative - Provider: Kasie Gay RN)2307 (See Alternative - Provider: Kasie Gay RN) 1020 (See Alternative - Provider: Rena De La Fuente RN)2343 (See Alternative - Provider: Kasie Gay RN) LORazepam (ATIVAN) tablet 3 mg(Linked Group 2) 3 mg, Oral, EVERY 1 HOUR PRN (WITHDRAWAL), Starting on Sat09/27/21 at 0108, Until Discontinued, For alcohol withdrawal., For CIWA score 16 to 20. Reassess CIWA one hour after each dose of medication and as needed. 0604 (See Alternative - Provider: Juarez Avalos RN)0822 (See Alternative - Provider: Rena De La Fuente RN)1739 (See Alternative - Provider: Rena De La Fuente RN)194 (See Alternative - Provider: Kasie Gay RN)2308 (See Alternative - Provider: Kasie Gay RN) 1020 (See Alternative - Provider: Rena De La Fuente RN)2343 (See Alternative - Provider: Kasie Gay RN) LORazepam (ATIVAN) tablet 4 mg(Linked Group 2) 4 mg, Oral, EVERY 1 HOUR PRN (WITHDRAWAL), Starting on Sat09/27/21 at 0108, Until Discontinued, For alcohol withdrawal., For CIWA score greater than 20. Reassess CIWA one hour after each dose of medication and as needed. 0604 (See Alternative - Provider: Juarez Avalos RN)0822 (See Alternative - Provider: Rena De La Fuente RN)173 (See Alternative - Provider: Rena De La Fuente RN)194 (See Alternative - Provider: Kasie Gay RN)230 (See Alternative - Provider: Kasie Gay RN) 1020 (See Alternative - Provider: Rena De La Fuente RN)2343 (See Alternative - Provider: Kasie Gay RN) ondansetron (ZOFRAN) injection 4 mg(Linked Group 3) 4 mg, IntraVENous, EVERY 6 HOURS PRN, Starting on Sat09/27/21 at 0102, Until Discontinued, Nausea, Vomiting, Administer if oral route cannot be used. 1740 (Given - Provider: Rena De La Fuente RN) 1020 (Given - Provider: Rena De La Fuente RN) ondansetron (ZOFRAN-ODT) disintegrating tablet 4 mg(Linked Group 3) 4 mg, Oral, EVERY 8 HOURS PRN, Starting on Sat09/27/21 at 0102, Until Discontinued, Nausea, Vomiting 1740 (See Alternative - Provider: Rena De La Fuente RN) 1020 (See Alternative - Provider: Rena De La Fuente RN) sodium chloride flush 0.9 % injection 5-40 mL 5-40 mL, IntraVENous, PRN, Starting on Sat09/27/21 at 0102, Until Discontinued, Line Care, After every IV line use, For Line Patency: Peripheral IV = 5 mL; Midline or Central Line = 10 mL/lumen. If following IV push medication, administer flush at same rate as the IV push. Flush volume is determined by type of infusion therapy being given. For non-viscous solutions use: Peripheral IV = 5 mL Midline or Central Line = 10 mL/lumen For viscous solutions (i.e. blood components, parenteral nutrition, contrast media, or after obtaining blood sample) use: Peripheral IV = 10 mL Midline or Central Line = 20 mL/lumen Linked Groups Order Group 1: acetaminophen (TYLENOL) tablet 650 mgJump to med 650 mg, Oral, EVERY 6 HOURS PRN, Starting on Sat09/27/21 at 0102, Until Discontinued, Pain Mild (1-3), Fever, For temp greater than 100.4 F (38 C)
Maximum dose of acetaminophen is 4000 mg from all sources in 24 hours.
Or acetaminophen (TYLENOL) suppository 650 mgJump to med 650 mg, Rectal, EVERY 6 HOURS PRN, Starting on Sat09/27/21 at 0102, Until Discontinued, Pain Mild (1-3), Fever, For temp greater than 100.4 F (38 C)
Administer if oral route cannot be used.
Group 2: LORazepam (ATIVAN) tablet 1 mgJump to med 1 mg, Oral, EVERY 1 HOUR PRN (WITHDRAWAL), Starting on Sat09/27/21 at 0108, Until Discontinued, For alcohol withdrawal.
For CIWA score 8 to 10. Reassess CIWA one hour after each dose of medication and as needed.
Or LORazepam (ATIVAN) injection 1 mgJump to med 1 mg, IntraVENous, EVERY 1 HOUR PRN (WITHDRAWAL), Starting on Sat09/27/21 at 0108, Until Discontinued, Withdrawal, For alcohol withdrawal.
For CIWA score 8 to 10. If both oral and intravenous CIWA medications ordered, use intravenous if unable to tolerate oral equivalent. Reassess CIWA one hour after each dose of medication and as needed.
Or LORazepam (ATIVAN) tablet 2 mgJump to med 2 mg, Oral, EVERY 1 HOUR PRN (WITHDRAWAL), Starting on Sat09/27/21 at 0108, Until Discontinued, For alcohol withdrawal.
For CIWA score 11 to 15. Reassess CIWA one hour after each dose of medication and as needed.
Or LORazepam (ATIVAN) injection 2 mgJump to med 2 mg, IntraVENous, EVERY 1 HOUR PRN (WITHDRAWAL), Starting on Sat09/27/21 at 0108, Until Discontinued, Withdrawal, For alcohol withdrawal.
For CIWA score 11 to 15. If both oral and intravenous CIWA medications ordered, use intravenous if unable to tolerate oral equivalent. Reassess CIWA one hour after each dose of medication and as needed.
Or LORazepam (ATIVAN) tablet 3 mgJump to med 3 mg, Oral, EVERY 1 HOUR PRN (WITHDRAWAL), Starting on Sat09/27/21 at 0108, Until Discontinued, For alcohol withdrawal.
For CIWA score 16 to 20. Reassess CIWA one hour after each dose of medication and as needed.
Or LORazepam (ATIVAN) injection 3 mgJump to med 3 mg, IntraVENous, EVERY 1 HOUR PRN (WITHDRAWAL), Starting on Sat09/27/21 at 0108, Until Discontinued, Withdrawal, For alcohol withdrawal.
For CIWA score 16 to 20. If both oral and intravenous CIWA medications ordered, use intravenous if unable to tolerate oral equivalent. Reassess CIWA one hour after each dose of medication and as needed.
Or LORazepam (ATIVAN) tablet 4 mgJump to med 4 mg, Oral, EVERY 1 HOUR PRN (WITHDRAWAL), Starting on Sat09/27/21 at 0108, Until Discontinued, For alcohol withdrawal.
For CIWA score greater than 20. Reassess CIWA one hour after each dose of medication and as needed.
Or LORazepam (ATIVAN) injection 4 mgJump to med 4 mg, IntraVENous, EVERY 1 HOUR PRN (WITHDRAWAL), Starting on Sat09/27/21 at 0108, Until Discontinued, Withdrawal, For alcohol withdrawal.
For CIWA score greater than 20. If both oral and intravenous CIWA medications ordered, use intravenous if unable to tolerate oral equivalent. Reassess CIWA one hour after each dose of medication and as needed.
Group 3: ondansetron (ZOFRAN-ODT) disintegrating tablet 4 mgJump to med 4 mg, Oral, EVERY 8 HOURS PRN, Starting on Sat09/27/21 at 0102, Until Discontinued, Nausea, Vomiting Or ondansetron (ZOFRAN) injection 4 mgJump to med 4 mg, IntraVENous, EVERY 6 HOURS PRN, Starting on Sat09/27/21 at 0102, Until Discontinued, Nausea, Vomiting
Administer if oral route cannot be used.
Scheduled Medication Order 07/21/2022 07/22/2022 07/23/2022 folic acid (Folvite) tablet 1 mg 1 mg, Oral, Daily, First dose on 07/21/22 at 1830 2044 (Not Given - Provider: Nick Gordon RN - Reason: Other - Comment: due at 0900) 0838 (Given - Provider: Keila Holcomb RN) 1054 (Given - Provider: Sera Garcia RN) gabapentin (Neurontin) tablet 600 mg 600 mg, Oral, 3 times daily, First dose on 07/21/22 at 2100 2044 (Given - Provider: Nick Gordon RN) 0838 (Given - Provider: Keila Holcomb RN)1530 (Given - Provider: Keila Holcomb RN)1953 (Given - Provider: Tram Tello RN)2100 (Not Given - Provider: Tram Tello RN - Reason: Other - Comment: given at 1952) 1054 (Given - Provider: Sera Garcia RN)1400 (Canceled Entry - Provider: Automatic Discharge Provider - Comment: Automatically canceled at discontinue of medication order) LORazepam (Ativan) injection 2 mg (COMPLETED) 2 mg, IntraVENous, Once, On 07/21/22 at 1820, For 1 dose, For IV doses dilute dose with 1ml NS. 1823 (Given - Provider: Harika Gay RN) morphine sulfate (PF) injection 4 mg (COMPLETED) 4 mg, IntraVENous, Once, On 07/21/22 at 1635, For 1 dose, If oral and IV narcotics ordered, use oral first and only use IV if oral is ineffective or cannot take oral. Do Not give oral and IV within 1 hour of each other unless specifically ordered. 1648 (Given - Provider: Harika Gay, RN) ondansetron (Zofran) injection 4 mg (COMPLETED) 4 mg, IntraVENous, Once, On 07/21/22 at 1635, For 1 dose 1648 (Given - Provider: Harika Gay RN) pantoprazole (ProtoNix) injection 40 mg (COMPLETED) 40 mg, IntraVENous, Administer over 2 Minutes, Once, On 07/21/22 at 1635, For 1 dose 164 (Given - Provider: Harika Gay RN) pantoprazole (ProtoNix) injection 40 mg 40 mg, IntraVENous, Administer over 2 Minutes, Every 12 hours scheduled (2 times per day), First dose on 07/22/22 at 1045, Give only if unable to tolerate po. 1127 (Given - Provider: Keila Holcomb RN)195 (Given - Provider: Tram Tello RN)2100 (Not Given - Provider: Tram Tello RN - Reason: Other - Comment: given at 1952) 1054 (Given - Provider: Sera Garcia RN) Thiamine Mononitrate (Vitamin B1) tablet 100 mg 100 mg, Oral, Daily, First dose on 07/21/22 at 1830 2045 (Not Given - Provider: Nick Gordon RN - Reason: Other - Comment: due at 0900) 0838 (Given - Provider: Keila Holcomb RN) 1054 (Given - Provider: Sera Garcia, JAY) PRN Medication Order 07/21/2022 07/22/2022 07/23/2022 albuterol 108 (90 Base) MCG/ACT inhaler 2 puff 2 puff, Inhalation, Every 6 hours PRN, wheezing, shortness of breath, Starting on 07/21/22 at 1829 1351 (Given - Provider: Paige Wild RCP)1716 (Given - Provider: Paige Wild RCP) iopamidol (Isovue-370) 76 % injection 75 mL (COMPLETED) 75 mL, IntraVENous, IMG once PRN, contrast, Starting on 07/21/22 at 1645, For 1 dose 1752 (Given - Provider: ENRIQUE Og) LORazepam (Ativan) injection 1 mg(Linked Group 1) 1 mg, IntraVENous, Every 1 hour PRN, withdrawal, For alcohol withdrawal, Starting on 07/21/22 at 1829, For CIWA score 8 to 10. If both oral and intravenous CIWA medications ordered, use intravenous if unable to tolerate oral equivalent. Reassess CIWA one hour after each dose of medication and as needed. For IV doses dilute dose with 1ml NS. 2033 (See Alternative - Provider: Nick Gordon RN) 0109 (See Alternative - Provider: Nick Gordon RN)0334 (See Alternative - Provider: Nick Gordon RN)0701 (See Alternative - Provider: Nick Gordon RN)0856 (See Alternative - Provider: Keila Holcomb RN)163 (See Alternative - Provider: Keila Holcomb RN)1951 (See Alternative - Provider: Tram Tello RN)2246 (See Alternative - Provider: Tram Tello RN) 0321 (See Alternative - Provider: Tram Tello RN)0638 (See Alternative - Provider: Tram Tello RN)0903 (Given - Provider: Sera Garcia RN) LORazepam (Ativan) injection 2 mg(Linked Group 1) 2 mg, IntraVENous, Every 1 hour PRN, withdrawal, For alcohol withdrawal., Starting on 07/21/22 at 1829, For CIWA score 11 to 15. If both oral and intravenous CIWA medications ordered, use intravenous if unable to tolerate oral equivalent. Reassess CIWA one hour after each dose of medication and as needed. For IV doses dilute dose with 1ml NS. 2033 (See Alternative - Provider: Nick Gordon RN) 010 (See Alternative - Provider: Nick Gordon RN)0334 (Given - Provider: Nick Gordon RN)0701 (Given - Provider: Nick Gordon RN)0856 (Given - Provider: Keila Holcomb RN)1638 (See Alternative - Provider: Keila Holcomb RN)1949 (See Alternative - Provider: Tram Tello RN)2246 (See Alternative - Provider: Tram Tello RN) 0321 (See Alternative - Provider: Tram Tello RN)0638 (See Alternative - Provider: Tram Tello RN)0903 (See Alternative - Provider: Sera Garcia JAY) LORazepam (Ativan) injection 3 mg(Linked Group 1) 3 mg, IntraVENous, Every 1 hour PRN, withdrawal, For alcohol withdrawal, Starting on 07/21/22 at 1829, For CIWA score 16 to 20. If both oral and intravenous CIWA medications ordered, use intravenous if unable to tolerate oral equivalent. Reassess CIWA one hour after each dose of medication and as needed. For IV doses dilute dose with 1ml NS. 203 (Given - Provider: Nikc Gordon RN) 0109 (See Alternative - Provider: Nick Gordon RN)0334 (See Alternative - Provider: Nick Gordon RN)0701 (See Alternative - Provider: Nick Gordon RN)0856 (See Alternative - Provider: Keila Holcomb RN)1638 (See Alternative - Provider: Keila Holcomb RN)1949 (See Alternative - Provider: Tram Tello RN)2246 (See Alternative - Provider: Tram Tello RN) 0321 (See Alternative - Provider: Tram Tello RN)0638 (See Alternative - Provider: Tram Tello RN)0903 (See Alternative - Provider: Sera Garcia RN) LORazepam (Ativan) injection 4 mg(Linked Group 1) 4 mg, IntraVENous, Every 1 hour PRN, withdrawal, For alcohol withdrawal, Starting on 07/21/22 at 1829, For CIWA score greater than 20. If both oral and intravenous CIWA medications ordered, use intravenous if unable to tolerate oral equivalent. Reassess CIWA one hour after each dose of medication and as needed. For IV doses dilute dose with 1ml NS. 2033 (See Alternative - Provider: Nick Gordon RN) 010 (Given - Provider: Nick Gordon RN)0334 (See Alternative - Provider: Nick Gordon RN)0701 (See Alternative - Provider: Nick Gordon RN)0856 (See Alternative - Provider: Keila Holcomb RN)1638 (See Alternative - Provider: Keila Holcomb RN)195 (See Alternative - Provider: Tram Tello RN)224 (See Alternative - Provider: Tram Tello RN) 0321 (See Alternative - Provider: Tram Tello RN)0638 (See Alternative - Provider: Tram Tello RN)0903 (See Alternative - Provider: Sera Garcia, JAY) LORazepam (Ativan) tablet 1 mg(Linked Group 1) 1 mg, Oral, Every 1 hour PRN, other, For alcohol withdrawal, Starting on 07/21/22 at 1829, For CIWA score 8 to 10. Reassess CIWA one hour after each dose of medication and as needed. 2033 (See Alternative - Provider: Nick Gordon RN) 0109 (See Alternative - Provider: Nick Gordon RN)0334 (See Alternative - Provider: Nick Gordon RN)0701 (See Alternative - Provider: Nick Gordon RN)0856 (See Alternative - Provider: Keila Holcomb RN)163 (See Alternative - Provider: Keila Holcomb RN)1949 (See Alternative - Provider: Tram Tello RN)2246 (See Alternative - Provider: Tram Tello RN) 032 (Given - Provider: Tram Tello RN)0638 (Given - Provider: Tram Tello RN)0903 (See Alternative - Provider: Sera Garcia RN) LORazepam (Ativan) tablet 2 mg(Linked Group 1) 2 mg, Oral, Every 1 hour PRN, other, For alcohol withdrawal, Starting on 07/21/22 at 1829, For CIWA score 11 to 15. Reassess CIWA one hour after each dose of medication and as needed. 2033 (See Alternative - Provider: Nick Gordon RN) 010 (See Alternative - Provider: Nick Gordon RN)0334 (See Alternative - Provider: Nick Gordon RN)0701 (See Alternative - Provider: Nick Gordon RN)0856 (See Alternative - Provider: Keila Holcomb RN)163 (Given - Provider: Keila Holcomb RN)1949 (Given - Provider: Tram Tello RN)2246 (Given - Provider: Tram Tello RN) 0321 (See Alternative - Provider: Tram Tello RN)0638 (See Alternative - Provider: Tram Tello RN)0903 (See Alternative - Provider: Sera Garcia RN) LORazepam (Ativan) tablet 3 mg(Linked Group 1) 3 mg, Oral, Every 1 hour PRN, other, For alcohol withdrawal, Starting on 07/21/22 at 1829, For CIWA score 16 to 20. Reassess CIWA one hour after each dose of medication and as needed. 2033 (See Alternative - Provider: Nick Gordon RN) 010 (See Alternative - Provider: Nick Gordon RN)0334 (See Alternative - Provider: Nick Gordon RN)0701 (See Alternative - Provider: Nick Gordon RN)0856 (See Alternative - Provider: Keila Holcomb RN)1638 (See Alternative - Provider: Keila Holcomb RN)1949 (See Alternative - Provider: Tram Tello RN)2246 (See Alternative - Provider: Tram Tello RN) 032 (See Alternative - Provider: Tram Tello RN)0638 (See Alternative - Provider: Tram Tello RN)0903 (See Alternative - Provider: Sera Garcia, JAY) LORazepam (Ativan) tablet 4 mg(Linked Group 1) 4 mg, Oral, Every 1 hour PRN, other, For alcohol withdrawal, Starting on 07/21/22 at 1829, For CIWA score greater than 20. Reassess CIWA one hour after each dose of medication and as needed. 2033 (See Alternative - Provider: Nick Gordon RN) 108 (See Alternative - Provider: Nick Gordon RN)033 (See Alternative - Provider: Nick Gordon RN)0701 (See Alternative - Provider: Nick Gordon RN)0856 (See Alternative - Provider: Keila Holcomb RN)163 (See Alternative - Provider: Keila Holcomb RN)1949 (See Alternative - Provider: Tram Tello RN)2246 (See Alternative - Provider: Tram Tello RN) 032 (See Alternative - Provider: Tram Tello RN)0638 (See Alternative - Provider: Tram Tello RN)0903 (See Alternative - Provider: Sera Garcia RN) ondansetron (Zofran) injection 4 mg(Linked Group 2) 4 mg, IntraVENous, Every 6 hours PRN, nausea, vomiting, Starting on 07/21/22 at 1829, 1st Line. Give IV if patient is unable to take orally. If inadequate response within 60 minutes, proceed to next-line agent or contact provider if no further options ordered. ondansetron ODT (Zofran-ODT) disintegrating tablet 4 mg(Linked Group 2) 4 mg, Oral, Every 8 hours PRN, nausea, vomiting, Starting on 07/21/22 at 1829, 1st Line. If inadequate response within 60 minutes, proceed to next-line agent or contact provider if no further options ordered. Patient should allow tablet to dissolve on tongue. Do not remove from blister pack until just before administering. polyethylene glycol (PEG) 3350 (Miralax) packet 17 g 17 g, Oral, Daily PRN, constipation, Starting on 07/21/22 at 1829, 1st line for treatment of constipation - give scheduled if no bowel movement in past 24 hours. Linked Groups Order Group 1: LORazepam (Ativan) tablet 1 mgJump to med 1 mg, Oral, Every 1 hour PRN, other, For alcohol withdrawal, Starting on 07/21/22 at 1829
For CIWA score 8 to 10. Reassess CIWA one hour after each dose of medication and as needed.
Or LORazepam (Ativan) injection 1 mgJump to med 1 mg, IntraVENous, Every 1 hour PRN, withdrawal, For alcohol withdrawal, Starting on 07/21/22 at 1829
For CIWA score 8 to 10. If both oral and intravenous CIWA medications ordered, use intravenous if unable to tolerate oral equivalent. Reassess CIWA one hour after each dose of medication and as needed. For IV doses dilute dose with 1ml NS.
Or LORazepam (Ativan) tablet 2 mgJump to med 2 mg, Oral, Every 1 hour PRN, other, For alcohol withdrawal, Starting on 07/21/22 at 1829
For CIWA score 11 to 15. Reassess CIWA one hour after each dose of medication and as needed.
Or LORazepam (Ativan) injection 2 mgJump to med 2 mg, IntraVENous, Every 1 hour PRN, withdrawal, For alcohol withdrawal., Starting on 07/21/22 at 1829
For CIWA score 11 to 15. If both oral and intravenous CIWA medications ordered, use intravenous if unable to tolerate oral equivalent. Reassess CIWA one hour after each dose of medication and as needed. For IV doses dilute dose with 1ml NS.
Or LORazepam (Ativan) tablet 3 mgJump to med 3 mg, Oral, Every 1 hour PRN, other, For alcohol withdrawal, Starting on 07/21/22 at 1829
For CIWA score 16 to 20. Reassess CIWA one hour after each dose of medication and as needed.
Or LORazepam (Ativan) injection 3 mgJump to med 3 mg, IntraVENous, Every 1 hour PRN, withdrawal, For alcohol withdrawal, Starting on 07/21/22 at 1829
For CIWA score 16 to 20. If both oral and intravenous CIWA medications ordered, use intravenous if unable to tolerate oral equivalent. Reassess CIWA one hour after each dose of medication and as needed. For IV doses dilute dose with 1ml NS.
Or LORazepam (Ativan) tablet 4 mgJump to med 4 mg, Oral, Every 1 hour PRN, other, For alcohol withdrawal, Starting on 07/21/22 at 1829
For CIWA score greater than 20. Reassess CIWA one hour after each dose of medication and as needed.
Or LORazepam (Ativan) injection 4 mgJump to med 4 mg, IntraVENous, Every 1 hour PRN, withdrawal, For alcohol withdrawal, Starting on 07/21/22 at 1829
For CIWA score greater than 20. If both oral and intravenous CIWA medications ordered, use intravenous if unable to tolerate oral equivalent. Reassess CIWA one hour after each dose of medication and as needed. For IV doses dilute dose with 1ml NS.
Group 2: ondansetron ODT (Zofran-ODT) disintegrating tablet 4 mgJump to med 4 mg, Oral, Every 8 hours PRN, nausea, vomiting, Starting on 07/21/22 at 1829
1st Line. If inadequate response within 60 minutes, proceed to next-line agent or contact provider if no further options ordered. Patient should allow tablet to dissolve on tongue. Do not remove from blister pack until just before administering.
Or ondansetron (Zofran) injection 4 mgJump to med 4 mg, IntraVENous, Every 6 hours PRN, nausea, vomiting, Starting on 07/21/22 at 1829
1st Line. Give IV if patient is unable to take orally. If inadequate response within 60 minutes, proceed to next-line agent or contact provider if no further options ordered.
Scheduled Medication Order 09/12/2022 09/13/2022 09/14/2022 famotidine (Pepcid) tablet 20 mg 20 mg, Oral, 2 times daily, First dose on Sat09/11/22 at 1215 0809 (Given - Provider: Stephanie Schmitt RN)2128 (Given - Provider: Corinne Navarrete RN) 0811 (Given - Provider: Lauren Irby RN)2051 (Given - Provider: Corinne Navarrete RN) 0801 (Given - Provider: Lauren Irby RN) folic acid (Folvite) tablet 1 mg 1 mg, Oral, Daily, First dose on Sat09/10/22 at 1605 0809 (Given - Provider: Stephanie Schmitt RN) 0811 (Given - Provider: Lauren Irby RN) 0801 (Given - Provider: Lauren Irby RN) gabapentin (Neurontin) capsule 600 mg 600 mg, Oral, 3 times daily, First dose on Sat09/10/22 at 1605 0809 (Given - Provider: Stephanie Schmitt RN)1426 (Given - Provider: Stephanie Schmitt RN)2236 (Given - Provider: Corinne Navarrete RN) 0811 (Given - Provider: Lauren Irby RN)1542 (Given - Provider: Lauren Irby RN)2347 (Given - Provider: Corinne Navarrete RN) 0801 (Given - Provider: Lauren Irby RN) melatonin tablet 5 mg 5 mg, Oral, Nightly, First dose on Sat09/10/22 at 2100 2127 (Given - Provider: Corinne Navarrete, RN) 2050 (Given - Provider: Corinne Navarrete RN) multiple vitamin tablet 1 tablet, Oral, Daily, First dose on Sat09/11/22 at 0900 0809 (Given - Provider: Stephanie Schmitt, JAY) 0811 (Given - Provider: Lauren Irby RN) 08 (Given - Provider: Lauren Irby RN) naltrexone (Depade) tablet 50 mg (COMPLETED) 50 mg, Oral, Once, On Sat09/13/22 at 1230, For 1 dose 1304 (Given - Provider: Lauren Irby RN) naltrexone ER (Vivitrol) injection 380 mg (COMPLETED) 380 mg, IntraMUSCular, Once, On Sat09/14/22 at 0800, For 1 dose, Follow Package Insert. Bring vial to room temperature over 1 hour. Reconstitute with 3.4ml of provided diluent. Shake well. Draw up and administer 4mL dose deep IM into gluteal muscle IMMEDIATELY. Do not give IV or subcutaneously. Provide patient with wallet card and medical ID bracelet kit sent up by Pharmacy 900 (Given - Provid er: Lauren Irby RN) nicotine (Nicoderm, Step 1) 21 MG/24HR patch 1 patch(Linked Group 1) 1 patch, TransDERmal, Administer over 24 Hours, Daily, First dose on Sat09/11/22 at 0900, For 42 days 0809 (Medication Applied - Provider: Stephanie Schmitt RN) 0809 (Medication Removed - Provider: Lauren Irby RN)0811 (Medication Applied - Provider: Lauren Irby RN) 08 (Medication Applied - Provider: Lauren Irby RN)1215 (Due: Medication Removed - Provider: Automatic Discharge Provider - Comment: Time automatically adjusted from order being discontinued) nicotine (Nicoderm, Step 2) 14 MG/24HR patch 1 patch(Linked Group 1) 1 patch, TransDERmal, Administer over 24 Hours, Daily, First dose on Sat10/23/22 at 0900, For 14 days nicotine (Nicoderm, Step 3) 7 MG/24HR patch 1 patch(Linked Group 1) 1 patch, TransDERmal, Administer over 24 Hours, Daily, First dose on Sat11/06/22 at 0900, For 14 days pantoprazole (ProtoNix) EC tablet 40 mg 40 mg, Oral, Daily before breakfast, First dose on Sat09/11/22 at 0700, Do not crush, chew, or split. 0633 (Given - Provider: Magaly Chowdhury RN) 0553 (Given - Provider: Corinne Navarrete RN) 0509 (Given - Provider: Corinne Navarrete RN) PHENobarbital (Luminal) tablet 64.8 mg (CANCELED) 64.8 mg, Oral, Every 6 hours, First dose on Sat09/13/22 at 0530 0553 (Given - Provider: Corinne Navarrete, JAY)1100 (Given - Provider: Lauren Irby RN)1716 (Given - Provider: Lauren Irby RN)2347 (Given - Provider: Corinne Navarrete RN) 0509 (Given - Provider: Corinne Navarrete RN)1059 (Given - Provider: Lauren Irby RN) PHENobarbital (Luminal) tablet 97.2 mg (CANCELED) 97.2 mg, Oral, Every 3 hours, First dose (after last modification) on Sat09/11/22 at 1215 0050 (Given - Provider: Magaly Chowdhury RN)0400 (Not Given - Provider: Magaly Chowdhury RN - Reason: Other - Comment: pt sleeping)0633 (Given - Provider: Magaly Chowdhury RN)1024 (Given - Provider: Stephanie Schmitt, JAY) PHENobarbital (Luminal) tablet 97.2 mg (COMPLETED) 97.2 mg, Oral, Every 4 hours, First dose (after last modification) on Sat09/12/22 at 1430, For 3 doses 1426 (Given - Provider: Stephanie Schmitt, JAY)1802 (Given - Provider: Stephanie Schmitt, RN)2236 (Given - Provider: Corinne Navarrete RN) Thiamine Mononitrate (Vitamin B1) tablet 100 mg (CANCELED) 100 mg, Oral, 3 times daily, First dose (after last modification) on Sat09/11/22 at 1400 0809 (Given - Provider: Stephanie Schmitt RN)1400 (Given - Provider: Stephanie Schmitt, RN)2128 (Given - Provider: Corinne Navarrete, JAY) 0811 (Given - Provider: Lauren Irby, JAY)1304 (Given - Provider: Lauren Irby, JAY)2050 (Given - Provider: Corinne Navarrete, RN) 0801 (Given - Provider: Lauren Irby, RN) Thiamine Mononitrate (Vitamin B1) tablet 100 mg 100 mg, Oral, Daily, First dose (after last modification) on Sat09/15/22 at 0900 PRN Medication Order 09/12/2022 09/13/2022 09/14/2022 albuterol 108 (90 Base) MCG/ACT inhaler 2 puff 2 puff, Inhalation, Every 6 hours PRN, wheezing, shortness of breath, Starting on Sat09/10/22 at 1557 0813 (Given - Provider: Stephanie Schmitt RN) 0710 (Given - Provider: Corinne Navarrete RN)2051 (Given - Provider: Corinne Navarrete RN) hydrOXYzine pamoate (Vistaril) capsule 50 mg 50 mg, Oral, Every 6 hours PRN, anxiety, Starting on Sat09/10/22 at 1559 1727 (Self Administered Via Pump - Provider: Stephanie Schmitt RN) ibuprofen tablet 400 mg 400 mg, Oral, Every 6 hours PRN, pain 1-10, Starting on Sat09/10/22 at 1559 1246 (Given - Provider: Lauren Irby, JAY) loperamide (Imodium) capsule 2 mg 2 mg, Oral, Every 3 hours PRN, diarrhea, Starting on Sat09/10/22 at 1559 nicotine polacrilex (Commit) lozenge 2 mg 2 mg, Mouth/Throat, Every 2 hour PRN, smoking cessation, nicotine craving, urge to smoke, Starting on Sat09/11/22 at 0316, Instruct patient to suck on lozenge until it dissolves; it should not be bitten, chewed, or swallowed. Maximum 20 lozenges per day. To increase chances of quitting, recommended to use at least 9 lozenges per day in the first 6 weeks of cessation. 1415 (Given - Provider: Lauren Irby RN) 0807 (Given - Provider: Lauren Irby RN) ondansetron ODT (Zofran-ODT) disintegrating tablet 4 mg 4 mg, Oral, Every 8 hours PRN, nausea, vomiting, Starting on Sat09/10/22 at 1559 2050 (Given - Provider: Corinne Navarrete, JAY) traZODone (Desyrel) tablet 50 mg 50 mg, Oral, Nightly PRN, sleep, Starting on Sat09/10/22 at 1559 2236 (Given - Provider: Corinne Navarrete, RN) 2347 (Given - Provider: Corinne Navarrete, JAY) Linked Groups Order Group 1: nicotine (Nicoderm, Step 1) 21 MG/24HR patch 1 patchJump to med 1 patch, TransDERmal, Administer over 24 Hours, Daily, First dose on Sat09/11/22 at 0900, For 42 days Followed by nicotine (Nicoderm, Step 2) 14 MG/24HR patch 1 patchJump to med 1 patch, TransDERmal, Administer over 24 Hours, Daily, First dose on Sat10/23/22 at 0900, For 14 days Followed by nicotine (Nicoderm, Step 3) 7 MG/24HR patch 1 patchJump to med 1 patch, TransDERmal, Administer over 24 Hours, Daily, First dose on Sat11/06/22 at 0900, For 14 days Scheduled Medication Order 02/09/2023 02/10/2023 02/11/2023 clobetasol (Temovate) 0.05 % cream Topical, 2 times daily, First dose on Sat02/09/23 at 0945 0945 (Given - Provider: Lauren Irby RN)2100 (Not Given - Provider: Lizz Martinez RN - Reason: Patient/family refused) 0827 (Given - Provider: Lauren Irby RN)2100 (Not Given - Provider: Lizz Martinez RN - Reason: Patient/family refused) 0900 (Not Given - Provider: Stephanie Schmitt RN - Reason: Patient/family refused) folic acid (Folvite) tablet 1 mg 1 mg, Oral, Daily, First dose on Sat02/08/23 at 1725 0844 (Given - Provider: Lauren Irby RN) 0827 (Given - Provider: Lauren Irby RN) 0932 (Given - Provider: Stephanie Schmitt, JAY) gabapentin (Neurontin) capsule 600 mg 600 mg, Oral, 3 times daily, First dose on 02/09/23 at 0945 1030 (Given - Provider: Lauren Irby RN)1343 (Given - Provider: Lauren Irby RN)2038 (Given - Provider: Lizz Martinez RN) 0827 (Given - Provider: Lauren Irby RN)1315 (Given - Provider: Lauren Irby RN)2026 (Given - Provider: Lizz Martinez RN) 0932 (Given - Provider: Stephanie Schmitt RN)1400 (Canceled Entry - Provider: Automatic Discharge Provider - Comment: Automatically canceled at discontinue of medication order) melatonin tablet 5 mg 5 mg, Oral, Nightly, First dose on Sat02/09/23 at 2100 2038 (Given - Provider: Lizz Martinez RN) 2025 (Given - Provider: Lizz Martinez RN) naltrexone (Depade) tablet 25 mg (COMPLETED) 25 mg, Oral, Daily, First dose on Sat02/11/23 at 1100, For 1 dose 1123 (Given - Provid er: Stephanie Schmitt RN) nicotine (Nicoderm, Step 1) 21 MG/24HR patch 1 patch(Linked Group 1) 1 patch, TransDERmal, Administer over 24 Hours, Daily, First dose on Sat02/08/23 at 1725, For 42 days, Apply new patch to nonhairy, clean, dry skin on the upper body or upper outer arm. Rotate patch sites. Notify Pharmacy if patient or provider prefers patch to be removed at bedtime and replaced in the morning. 0844 (Medication Applied - Provider: Lauren Irby RN) 0844 (Medication Removed - Provider: Lauren Irby RN)0900 (Not Given - Provider: Lauren Irby RN - Reason: Patient/family refused) 0900 (Not Given - Provider: Stephanie Schmitt RN - Reason: Patient/family refused) pantoprazole (ProtoNix) EC tablet 40 mg 40 mg, Oral, Daily before breakfast, First dose on 02/10/23 at 0700, Do not crush, chew, or split. 0443 (Given - Provider: Lizz Martinez RN - Comment: give doses at one time) 0508 (Given - Provider: Lizz Martinez RN) PHENobarbital (Luminal) tablet 64.8 mg 64.8 mg, Oral, Every 4 hours, First dose (after last modification) on 02/10/23 at 1700, OK to HOLD or DELAY for oversedation 1647 (Given - Provider: Lauren Irby RN)2026 (Given - Provider: Lizz Martinez RN) 0105 (Given - Provider: Lizz Martinez RN)0508 (Given - Provider: Lizz Martinez RN)0931 (Given - Provider: Stephanie Schmitt RN)1300 (Canceled Entry - Provider: Automatic Discharge Provider - Comment: Automatically canceled at discontinue of medication order) PHENobarbital (Luminal) tablet 97.2 mg (CANCELED) 97.2 mg, Oral, Every 4 hours, First dose (after last reorder) on 02/09/23 at 0100, OK to HOLD or DELAY for oversedation 0110 (Given - Provider: Neftali Glass RN)0509 (Given - Provider: Neftali Glass RN)0844 (Given - Provider: Lauren Irby RN)1343 (Given - Provider: Lauren Irby RN)1718 (Given - Provider: Lauren Irby RN)2038 (Given - Provider: Lizz Martinez RN) 0034 (Given - Provider: Lizz Martinez RN)0443 (Given - Provider: Lizz Martinez RN)0827 (Given - Provider: Lauren Irby RN)1315 (Given - Provider: Lauren Irby RN) therapeutic multivitamin-minerals (Theragran-M) tablet 1 tablet, Oral, Daily, First dose on Sat02/08/23 at 1835 0844 (Given - Provider: Lauren Irby RN) 0827 (Given - Provider: Lauren Irby, JAY) 0932 (Given - Provider: Stephanie Schmitt, RN) thiamine (Vitamin B1) tablet 100 mg 100 mg, Oral, Daily, First dose on Sat02/08/23 at 1725 0844 (Given - Provider: Lauren Irby RN) 0827 (Given - Provider: Lauren Irby RN) 0932 (Given - Provider: Stephanie Schmitt, RN) PRN Medication Order 02/09/2023 02/10/2023 02/11/2023 acetaminophen (Tylenol) tablet 650 mg 650 mg, Oral, Every 6 hours PRN, mild pain (1-3), moderate pain (4-6), headaches, fever, severe pain 7-10, Starting on Sat02/08/23 at 1829 albuterol 108 (90 Base) MCG/ACT inhaler 2 puff 2 puff, Inhalation, Every 6 hours PRN, wheezing, shortness of breath, Starting on 02/09/23 at 0939 0836 (Given - Provider: Lauren Irby RN) aluminum & magnesium hydroxide-simethicone (Mylanta) 200-200-20 MG/5ML oral suspension 10 mL 10 mL, Oral, 3 times daily PRN, indigestion, Starting on Sat02/08/23 at 1829 hydrOXYzine pamoate (Vistaril) capsule 50 mg 50 mg, Oral, Every 6 hours PRN, allergies, anxiety, Starting on Sat02/08/23 at 1830 loperamide (Imodium) capsule 2 mg 2 mg, Oral, 4 times daily PRN, diarrhea, Starting on Sat02/08/23 at 1830, After each loose stool magnesium hydroxide (Milk of Magnesia) 400 MG/5ML suspension 30 mL 30 mL, Oral, 2 times daily PRN, constipation, Starting on Sat02/08/23 at 1830 nicotine polacrilex (Commit) lozenge 2 mg 2 mg, Mouth/Throat, Every 2 hour PRN, smoking cessation, nicotine craving, urge to smoke, Starting on 02/09/23 at 1816, Instruct patient to suck on lozenge until it dissolves; it should not be bitten, chewed, or swallowed. Maximum 20 lozenges per day. To increase chances of quitting, recommended to use at least 9 lozenges per day in the first 6 weeks of cessation. 1823 (Given - Provider: Lauren Irby RN)2037 (Given - Provider: Lizz Martinez RN) 0529 (Given - Provider: Lizz Martinez RN)0827 (Given - Provider: Lauren Irby RN)1018 (Given - Provider: Lauren Irby RN)1432 (Given - Provider: Lauren Irby RN)1647 (Given - Provider: Lauren Irby RN)2025 (Given - Provider: Lizz Martinez RN) 0514 (Given - Provider: Lizz Martinez RN)0931 (Given - Provider: Stephanie Schmitt RN) ondansetron ODT (Zofran-ODT) disintegrating tablet 4 mg 4 mg, Oral, Every 6 hours PRN, nausea, vomiting, Starting on Sat02/08/23 at 1830 traZODone (Desyrel) tablet 100 mg (CANCELED) 100 mg, Oral, Nightly PRN, sleep, Starting on Sat02/08/23 at 1830 0007 (Given - Provider: Neftali Glass RN) Linked Groups Order Group 1: nicotine (Nicoderm, Step 1) 21 MG/24HR patch 1 patchJump to med 1 patch, TransDERmal, Administer over 24 Hours, Daily, First dose on Sat02/08/23 at 1725, For 42 days, Apply new patch to nonhairy, clean, dry skin on the upper body or upper outer arm. Rotate patch sites. Notify Pharmacy if patient or provider prefers patch to be removed at bedtime and replaced in the morning. Followed by nicotine (Nicoderm, Step 2) 14 MG/24HR patch 1 patch (CANCELED) 1 patch, TransDERmal, Administer over 24 Hours, Daily, First dose on Sat03/22/23 at 0900, For 14 days, Apply new patch to nonhairy, clean, dry skin on the upper body or upper outer arm. Rotate patch sites. Notify Pharmacy if patient or provider prefers patch to be removed at bedtime and replaced in the morning. Followed by nicotine (Nicoderm, Step 3) 7 MG/24HR patch 1 patch (CANCELED) 1 patch, TransDERmal, Administer over 24 Hours, Daily, First dose on Sat04/05/23 at 0900, For 14 days, Apply new patch to nonhairy, clean, dry skin on the upper body or upper outer arm. Rotate patch sites. Notify Pharmacy if patient or provider prefers patch to be removed at bedtime and replaced in the morning. Scheduled Medication Order 02/15/2023 02/16/2023 02/17/2023 oxyCODONE-acetaminophen (Percocet) 5-325 MG per tablet 2 tablet (COMPLETED) 2 tablet, Oral, Once, On 02/17/23 at 0915, For 1 dose, Maximum dose of acetaminophen is 4000 mg from all sources in 24 hours. 0922 (Given - Provid er: Evelyn Wick RN) Scheduled Medication Order 03/17/2023 03/18/2023 03/19/2023 ibuprofen tablet 600 mg (COMPLETED) 600 mg, Oral, Once, On Sat03/19/23 at 1040, For 1 dose 1044 (Given - Provid er: Samia rFaga RN) Scheduled Medication Order 05/21/2023 05/22/2023 05/23/2023 calcipotriene (Dovonex) 0.005 % cream Topical, 2 times daily, First dose on Sat05/21/23 at 0900, Non-formulary. Patient may supply own cream 0900 (Not Given - Provider: Estella De Dios RN - Reason: Medication not available)2100 (Not Given - Provider: Mer Oscar RN - Reason: Medication not available) 0900 (Not Given - Provider: Julianna Hampton RN - Reason: Patient/family refused)2100 (Not Given - Provider: Clarita Delong RN - Reason: Patient/family refused) 0900 (Not Given - Provider: Julianna Hmapton RN - Reason: Medication not available) clobetasol (Temovate) 0.05 % cream Topical, 2 times daily, First dose on Sat05/21/23 at 0900 0900 (Not Given - Provider: Estella De Dios RN - Reason: Medication not available)2148 (Given - Provider: Mer Oscar RN) 0900 (Not Given - Provider: Julianna Hampton RN - Reason: Patient/family refused)2100 (Not Given - Provider: Clarita Delong RN - Reason: Patient/family refused) 0830 (Given - Provider: Julianna Hampton RN) enoxaparin (Lovenox) syringe 40 mg 40 mg, SubCUTAneous, Every 24 hours scheduled (Daily), First dose on Sat05/21/23 at 0900, Indication of Use: Prophylaxis-DVT/PE, Indications: Prophylaxis of Venous Thromboembolism 0802 (Given - Provider: Estella De Dios RN) 0958 (Given - Provider: Julianna Hampton RN) 0827 (Given - Provider: Julianna Hampton RN) folic acid (Folvite) tablet 1 mg 1 mg, Oral, Daily, First dose on Sat05/21/23 at 0900 0800 (Given - Provider: Estella De Dios RN) 0958 (Given - Provider: Julianna Hampton RN) 0827 (Given - Provider: Julianna Hampton RN) gabapentin (Neurontin) tablet 600 mg 600 mg, Oral, 3 times daily, First dose on Sat05/21/23 at 0900 0800 (Given - Provider: Estella De Dios RN)1412 (Given - Provider: Jacqueline Pittman RN)2148 (Given - Provider: Mer Oscar RN) 0957 (Given - Provider: Julianna Hampton RN)1552 (Given - Provider: Julianna Hampton RN)202 (Given - Provider: Clarita Delong RN) 0827 (Given - Provider: Julianna Hampton RN)1422 (Given - Provider: Julianna Hampton RN) hydrALAZINE (Apresoline) injection 20 mg (COMPLETED) 20 mg, IntraVENous, Once, On Sat05/22/23 at 2115, For 1 dose 2120 (Given - Provider: Clarita Delong RN) pantoprazole (ProtoNix) EC tablet 40 mg 40 mg, Oral, Daily before breakfast, First dose on Sat05/21/23 at 0700, Do not crush, chew, or split. 0800 (Given - Provider: Estella De Dios RN) 0607 (Given - Provider: Mer Oscar RN) 0639 (Given - Provider: Clarita Delong RN) PHENobarbital (Luminal) injection 100 mg 100 mg, IntraVENous, Every 4 hours, First dose (after last modification) on Sat05/21/23 at 1005, Administer no faster than 1 mg/kg/minute, to a max of 60 mg/min in adults. 1005 (Given - Provider: Eda Nguyen, RN)1412 (Given - Provider: Jacqueline Pittman, RN)1824 (Given - Provider: Carol Tovar, RN)2148 (Given - Provider: Mer Oscar RN) 0208 (Given - Provider: Mer Oscar RN)0607 (Given - Provider: Mer Oscar RN)1117 (Given - Provider: Julianna Hampton, RN)1548 (Given - Provider: Julianna Hampton RN)1855 (Given - Provider: Julianna Hampton RN)2121 (Given - Provider: Clarita Delong RN) 0156 (Given - Provider: Clarita Delong RN)0639 (Given - Provider: Clarita Delong RN)1019 (Given - Provider: Julianna Hampton RN)1422 (Given - Provider: Julianna Hampton RN)1805 (Canceled Entry - Provider: Automatic Discharge Provider - Comment: Automatically canceled at discontinue of medication order) PHENobarbital (Luminal) injection 65 mg (CANCELED) 65 mg, IntraVENous, Every 8 hours, First dose on Sat05/21/23 at 0250, Administer no faster than 1 mg/kg/minute, to a max of 60 mg/min in adults. 0313 (Given - Provider: Alpa Middleton RN) thiamine (Vitamin B1) tablet 100 mg 100 mg, Oral, Daily, First dose on Sat05/21/23 at 0900 0800 (Given - Provider: Estella De Dios RN) 0957 (Given - Provider: Julianna Hampton RN) 0827 (Given - Provider: Julianna Hampton RN) Continuous Medication Order 05/21/2023 05/22/2023 05/23/2023 sodium chloride 0.9 % infusion (CANCELED) 150 mL/hr, IntraVENous, Continuous, Starting on Sat05/21/23 at 0250 0318 (New Bag - Provider: Alpa Middleton RN)1010 (New Bag - Provider: Maida Ortega RN) 1917 (Stopped - Provider: Clarita Delong RN) PRN Medication Order 05/21/2023 05/22/2023 05/23/2023 acetaminophen (Tylenol) suppository 650 mg(Linked Group 1) 650 mg, Rectal, Every 6 hours PRN, mild pain (1-3), fever, For temp greater than 100.4 F (38 C), Starting on Sat05/21/23 at 0240, Administer if oral route cannot be used. Maximum dose of acetaminophen is 4000 mg from all sources in 24 hours. acetaminophen (Tylenol) tablet 650 mg(Linked Group 1) 650 mg, Oral, Every 6 hours PRN, mild pain (1-3), fever, For temp greater than 100.4 F (38 C), Starting on Sat05/21/23 at 0240, Maximum dose of acetaminophen is 4000 mg from all sources in 24 hours. albuterol 108 (90 Base) MCG/ACT inhaler 2 puff 2 puff, Inhalation, Every 6 hours PRN, wheezing, Starting on Sat05/22/23 at 1114 1308 (Given - Provider: Julianna Hampton RN)1904 (Given - Provider: Julianna Hampton RN) 0822 (Given - Provider: Julianna Hampton RN) LORazepam (Ativan) injection 1 mg(Linked Group 2) 1 mg, IntraVENous, Every 1 hour PRN, withdrawal, For alcohol withdrawal, Starting on Sat05/21/23 at 0054, For CIWA score 8 to 10. If both oral and intravenous CIWA medications ordered, use intravenous if unable to tolerate oral equivalent. Reassess CIWA one hour after each dose of medication and as needed. For IV doses dilute dose with 1ml NS. 0321 (See Alternative - Provider: Alpa Middleton RN)0759 (See Alternative - Provider: Estella De Dios RN)1527 (See Alternative - Provider: Carol Tovar RN) 1002 (See Alternative - Provider: Julianna Hampton RN)1555 (See Alternative - Provider: Julianna Hampton RN)1902 (See Alternative - Provider: Julianna Hampton RN)202 (See Alternative - Provider: Clarita Delong RN) 0827 (See Alternative - Provider: Julianna Hampton RN) LORazepam (Ativan) injection 2 mg(Linked Group 2) 2 mg, IntraVENous, Every 1 hour PRN, withdrawal, For alcohol withdrawal., Starting on Sat05/21/23 at 0054, For CIWA score 11 to 15. If both oral and intravenous CIWA medications ordered, use intravenous if unable to tolerate oral equivalent. Reassess CIWA one hour after each dose of medication and as needed. For IV doses dilute dose with 1ml NS. 0321 (See Alternative - Provider: Alpa Middleton RN)0759 (See Alternative - Provider: Estella De Dios RN)1527 (See Alternative - Provider: Carol Tovar RN) 1002 (See Alternative - Provider: Julianna Hampton RN)1555 (See Alternative - Provider: Julianna Hampton RN)190 (See Alternative - Provider: Julianna Hampton RN)2028 (See Alternative - Provider: Clarita Delong RN) 0827 (See Alternative - Provider: Julianna Hampton RN) LORazepam (Ativan) injection 3 mg(Linked Group 2) 3 mg, IntraVENous, Every 1 hour PRN, withdrawal, For alcohol withdrawal, Starting on Sat05/21/23 at 0054, For CIWA score 16 to 20. If both oral and intravenous CIWA medications ordered, use intravenous if unable to tolerate oral equivalent. Reassess CIWA one hour after each dose of medication and as needed. For IV doses dilute dose with 1ml NS. 0321 (See Alternative - Provider: Alpa Middleton RN)0759 (See Alternative - Provider: Estella De Dios RN)1527 (See Alternative - Provider: Carol Tovar RN) 1002 (See Alternative - Provider: Julianna Hampton RN)1555 (See Alternative - Provider: Julianna Hampton RN)190 (See Alternative - Provider: Julianna Hampton RN)2028 (See Alternative - Provider: Clarita Delong RN) 0827 (See Alternative - Provider: Julianna Hampton RN) LORazepam (Ativan) injection 4 mg(Linked Group 2) 4 mg, IntraVENous, Every 1 hour PRN, withdrawal, For alcohol withdrawal, Starting on Sat05/21/23 at 0054, For CIWA score greater than 20. If both oral and intravenous CIWA medications ordered, use intravenous if unable to tolerate oral equivalent. Reassess CIWA one hour after each dose of medication and as needed. For IV doses dilute dose with 1ml NS. 0321 (See Alternative - Provider: Alpa Middleton RN)0759 (See Alternative - Provider: Estella De Dios RN)152 (See Alternative - Provider: Carol Tovar RN) 1002 (See Alternative - Provider: Julianna Hampton RN)1555 (See Alternative - Provider: Julianna Hampton RN)190 (See Alternative - Provider: Julianna Hampton RN)2028 (See Alternative - Provider: Clarita Delong RN) 0827 (See Alternative - Provider: Julianna Hampton RN) LORazepam (Ativan) tablet 1 mg(Linked Group 2) 1 mg, Oral, Every 1 hour PRN, other, For alcohol withdrawal, Starting on Sat05/21/23 at 0054, For CIWA score 8 to 10. Reassess CIWA one hour after each dose of medication and as needed. 0321 (Given - Provider: Alpa Middleton RN)075 (See Alternative - Provider: Estella De Dios RN)152 (Given - Provider: Carol Tovar RN) 1002 (Given - Provider: Julianna Hampton RN)155 (Given - Provider: Julianna Hampton RN)190 (Given - Provider: Julianna Hampton RN)2028 (See Alternative - Provider: Clarita Delong RN) 0827 (Given - Provider: Julianna Hampton RN) LORazepam (Ativan) tablet 2 mg(Linked Group 2) 2 mg, Oral, Every 1 hour PRN, other, For alcohol withdrawal, Starting on Sat05/21/23 at 0054, For CIWA score 11 to 15. Reassess CIWA one hour after each dose of medication and as needed. 0321 (See Alternative - Provider: Alpa Middleton RN)0759 (Given - Provider: Estella De Dios RN)152 (See Alternative - Provider: Carol Tovar RN) 1002 (See Alternative - Provider: Julianna Hampton RN)1555 (See Alternative - Provider: Julianna Hampton RN)190 (See Alternative - Provider: Julianna Hampton RN)2028 (Given - Provider: Clarita Delong RN) 0827 (See Alternative - Provider: Julianna Hampton RN) LORazepam (Ativan) tablet 3 mg(Linked Group 2) 3 mg, Oral, Every 1 hour PRN, other, For alcohol withdrawal, Starting on Sat05/21/23 at 0054, For CIWA score 16 to 20. Reassess CIWA one hour after each dose of medication and as needed. 0321 (See Alternative - Provider: Alpa Middleton RN)0759 (See Alternative - Provider: Estella De Dios RN)1527 (See Alternative - Provider: Carol Tovar RN) 1002 (See Alternative - Provider: Julianna Hampton RN)1555 (See Alternative - Provider: Julianna Hampton RN)190 (See Alternative - Provider: Julianna Hampton RN)2028 (See Alternative - Provider: Clarita Delong RN) 0827 (See Alternative - Provider: Julianna Hampton RN) LORazepam (Ativan) tablet 4 mg(Linked Group 2) 4 mg, Oral, Every 1 hour PRN, other, For alcohol withdrawal, Starting on Sat05/21/23 at 0054, For CIWA score greater than 20. Reassess CIWA one hour after each dose of medication and as needed. 0321 (See Alternative - Provider: Alpa Middleton RN)0759 (See Alternative - Provider: Estella De Dios RN)1527 (See Alternative - Provider: Carol Tovar RN) 1002 (See Alternative - Provider: Julianna Hampton RN)1555 (See Alternative - Provider: Julianna Hampton RN)190 (See Alternative - Provider: Julianna Hampton RN)2028 (See Alternative - Provider: Clarita Delong RN) 0827 (See Alternative - Provider: Julianna Hampton RN) Melatonin disintegrating tablet 10 mg 10 mg, Oral, Nightly PRN, sleep, Starting on Sat05/21/23 at 0239 2148 (Given - Provider: Mer Oscar RN) nicotine (Nicoderm, Step 1) 21 MG/24HR patch 1 patch(Linked Group 3) 1 patch, TransDERmal, Administer over 24 Hours, Daily PRN, nicotine withdrawl, Starting on Sat05/21/23 at 0236, For use if smokes 1ppd or greater 0424 (See Alternative - Provider: Alpa Middleton RN) 0800 (See Alternative - Provider: Julianna Hampton RN)1556 (See Alternative - Provider: Julianna Hampton RN)1904 (See Alternative - Provider: Julianna Hampton RN) 0823 (See Alternative - Provider: Julianna Hampton RN) nicotine (Nicoderm, Step 2) 14 MG/24HR patch 1 patch(Linked Group 3) 1 patch, TransDERmal, Administer over 24 Hours, Daily PRN, nicotine withdrawl, Starting on Sat05/21/23 at 0236, For use if smokes 1/2 - 1ppd 0424 (See Alternative - Provider: Alpa Middleton RN) 0800 (See Alternative - Provider: Julianna Hampton RN)1556 (See Alternative - Provider: Julianna Hampton RN)1904 (See Alternative - Provider: Julianna Hampton RN) 0823 (See Alternative - Provider: Julianna Hampton RN) nicotine (Nicoderm, Step 3) 7 MG/24HR patch 1 patch(Linked Group 3) 1 patch, TransDERmal, Administer over 24 Hours, Daily PRN, nicotine withdrawl, Starting on Sat05/21/23 at 0236, For use if smokes less than 1/2 ppd 0424 (See Alternative - Provider: Alpa Middleton RN) 0800 (See Alternative - Provider: Julianna Hampton RN)1556 (See Alternative - Provider: Julianna Hampton RN)1904 (See Alternative - Provider: Julianna Hampton RN) 0823 (See Alternative - Provider: Julianna Hampton RN) nicotine polacrilex (Nicorette) gum 2 mg(Linked Group 3) 2 mg, Mouth/Throat, Every 1 hour PRN, smoking cessation, Starting on Sat05/21/23 at 0236 0424 (Given - Provider: Alpa Middleton RN) 0800 (Given - Provider: Julianna Hampton RN)1556 (Given - Provider: Julianna Hampton RN)1904 (Given - Provider: Julianna Hampton RN) 0823 (Given - Provider: Julianna Hampton RN) ondansetron (Zofran) injection 4 mg(Linked Group 4) 4 mg, IntraVENous, Every 6 hours PRN, nausea, vomiting, Starting on Sat05/21/23 at 0240, 1st Line. Give IV if patient is unable to take orally. If inadequate response within 60 minutes, proceed to next-line agent or contact provider if no further options ordered. ondansetron ODT (Zofran-ODT) disintegrating tablet 4 mg(Linked Group 4) 4 mg, Oral, Every 8 hours PRN, nausea, vomiting, Starting on Sat05/21/23 at 0240, 1st Line. If inadequate response within 60 minutes, proceed to next-line agent or contact provider if no further options ordered. Patient should allow tablet to dissolve on tongue. Do not remove from blister pack until just before administering. polyethylene glycol (PEG) 3350 (Miralax) packet 17 g 17 g, Oral, Daily PRN, constipation, Starting on Sat05/21/23 at 0240, 1st line for treatment of constipation - give scheduled if no bowel movement in past 24 hours. Linked Groups Order Group 1: acetaminophen (Tylenol) tablet 650 mgJump to med 650 mg, Oral, Every 6 hours PRN, mild pain (1-3), fever, For temp greater than 100.4 F (38 C), Starting on Sat05/21/23 at 0240, Maximum dose of acetaminophen is 4000 mg from all sources in 24 hours. Or acetaminophen (Tylenol) suppository 650 mgJump to med 650 mg, Rectal, Every 6 hours PRN, mild pain (1-3), fever, For temp greater than 100.4 F (38 C), Starting on Sat05/21/23 at 0240, Administer if oral route cannot be used. Maximum dose of acetaminophen is 4000 mg from all sources in 24 hours. Group 2: LORazepam (Ativan) tablet 1 mgJump to med 1 mg, Oral, Every 1 hour PRN, other, For alcohol withdrawal, Starting on Sat05/21/23 at 0054, For CIWA score 8 to 10. Reassess CIWA one hour after each dose of medication and as needed. Or LORazepam (Ativan) injection 1 mgJump to med 1 mg, IntraVENous, Every 1 hour PRN, withdrawal, For alcohol withdrawal, Starting on Sat05/21/23 at 0054, For CIWA score 8 to 10. If both oral and intravenous CIWA medications ordered, use intravenous if unable to tolerate oral equivalent. Reassess CIWA one hour after each dose of medication and as needed. For IV doses dilute dose with 1ml NS. Or LORazepam (Ativan) tablet 2 mgJump to med 2 mg, Oral, Every 1 hour PRN, other, For alcohol withdrawal, Starting on Sat05/21/23 at 0054, For CIWA score 11 to 15. Reassess CIWA one hour after each dose of medication and as needed. Or LORazepam (Ativan) injection 2 mgJump to med 2 mg, IntraVENous, Every 1 hour PRN, withdrawal, For alcohol withdrawal., Starting on Sat05/21/23 at 0054, For CIWA score 11 to 15. If both oral and intravenous CIWA medications ordered, use intravenous if unable to tolerate oral equivalent. Reassess CIWA one hour after each dose of medication and as needed. For IV doses dilute dose with 1ml NS. Or LORazepam (Ativan) tablet 3 mgJump to med 3 mg, Oral, Every 1 hour PRN, other, For alcohol withdrawal, Starting on Sat05/21/23 at 0054, For CIWA score 16 to 20. Reassess CIWA one hour after each dose of medication and as needed. Or LORazepam (Ativan) injection 3 mgJump to med 3 mg, IntraVENous, Every 1 hour PRN, withdrawal, For alcohol withdrawal, Starting on Sat05/21/23 at 0054, For CIWA score 16 to 20. If both oral and intravenous CIWA medications ordered, use intravenous if unable to tolerate oral equivalent. Reassess CIWA one hour after each dose of medication and as needed. For IV doses dilute dose with 1ml NS. Or LORazepam (Ativan) tablet 4 mgJump to med 4 mg, Oral, Every 1 hour PRN, other, For alcohol withdrawal, Starting on Sat05/21/23 at 0054, For CIWA score greater than 20. Reassess CIWA one hour after each dose of medication and as needed. Or LORazepam (Ativan) injection 4 mgJump to med 4 mg, IntraVENous, Every 1 hour PRN, withdrawal, For alcohol withdrawal, Starting on Sat05/21/23 at 0054, For CIWA score greater than 20. If both oral and intravenous CIWA medications ordered, use intravenous if unable to tolerate oral equivalent. Reassess CIWA one hour after each dose of medication and as needed. For IV doses dilute dose with 1ml NS. Group 3: nicotine (Nicoderm, Step 1) 21 MG/24HR patch 1 patchJump to med 1 patch, TransDERmal, Administer over 24 Hours, Daily PRN, nicotine withdrawl, Starting on Sat05/21/23 at 0236, For use if smokes 1ppd or greater Or nicotine (Nicoderm, Step 2) 14 MG/24HR patch 1 patchJump to med 1 patch, TransDERmal, Administer over 24 Hours, Daily PRN, nicotine withdrawl, Starting on Sat05/21/23 at 0236, For use if smokes 1/2 - 1ppd Or nicotine (Nicoderm, Step 3) 7 MG/24HR patch 1 patchJump to med 1 patch, TransDERmal, Administer over 24 Hours, Daily PRN, nicotine withdrawl, Starting on Sat05/21/23 at 0236, For use if smokes less than 1/2 ppd Or nicotine polacrilex (Nicorette) gum 2 mgJump to med 2 mg, Mouth/Throat, Every 1 hour PRN, smoking cessation, Starting on Sat05/21/23 at 0236 Group 4: ondansetron ODT (Zofran-ODT) disintegrating tablet 4 mgJump to med 4 mg, Oral, Every 8 hours PRN, nausea, vomiting, Starting on Sat05/21/23 at 0240, 1st Line. If inadequate response within 60 minutes, proceed to next-line agent or contact provider if no further options ordered. Patient should allow tablet to dissolve on tongue. Do not remove from blister pack until just before administering. Or ondansetron (Zofran) injection 4 mgJump to med 4 mg, IntraVENous, Every 6 hours PRN, nausea, vomiting, Starting on Sat05/21/23 at 0240, 1st Line. Give IV if patient is unable to take orally. If inadequate response within 60 minutes, proceed to next-line agent or contact provider if no further options ordered. Scheduled Medication Order 07/09/2023 07/10/2023 07/11/2023 diazePAM (Valium) tablet 2 mg (COMPLETED) 2 mg, Oral, Once, On Sat07/10/23 at 1100, For 1 dose 1103 (Given - Provider: Nicole Albrecht RN) folic acid (Folvite) tablet 1 mg 1 mg, Oral, Daily, First dose on Sat07/08/23 at 1920 0914 (Given - Provider: Stephanie Schmitt RN) 0926 (Given - Provider: Nicole Albrecht RN) 0848 (Given - Provider: Stephanie Schmitt RN) gabapentin (Neurontin) capsule 600 mg 600 mg, Oral, 3 times daily, First dose on Sat07/09/23 at 0900 0914 (Given - Provider: Stephanie Schmitt RN)1441 (Given - Provider: Stephanie Schmitt RN)205 (Given - Provider: Evelyn Abad, JAY) 0926 (Given - Provider: Nicole Albrecht RN)1412 (Given - Provider: Nicole Albrecht RN)2040 (Given - Provider: Evelyn Abad RN) 0848 (Given - Provider: Stephanie Schmitt RN)1400 (Not Given - Provider: Stephanie Schmitt RN - Reason: Other - Comment: discharged. waiting ride) ipratropium-albuterol (Duo-Neb) 0.5-2.5 mg/3 mL nebulizer solution 3 mL (CANCELED) 3 mL, Nebulization, 3 times daily, First dose on Sat07/09/23 at 1400, For 2 days 1143 (Given - Provider: Landen Cesar RCP)2000 (Not Given - Provider: Quynh Avalos RRT - Reason: Patient/family refused) 0717 (Given - Provider: Nilay Manning, SYDNIE)1223 (Given - Provider: Nilay Manning RRT)1931 (Given - Provider: Jacqueline Jay RCP) 0830 (Not Given - Provider: Katherine Ortiz RCP - Reason: Patient not available) melatonin tablet 5 mg 5 mg, Oral, Nightly, First dose on Sat07/09/23 at 2100 205 (Given - Provider: Evelyn Abad, JAY) 2203 (Given - Provider: Evelyn Abad RN) pantoprazole (ProtoNix) EC tablet 40 mg 40 mg, Oral, Daily before breakfast, First dose on Sat07/09/23 at 0600, Do not crush, chew, or split. 0541 (Given - Provider: Roger Mullins, JAY) 0507 (Given - Provider: Evelyn Aabd, JAY) 0505 (Given - Provider: Evelyn Abad RN) PHENobarbital (Luminal) tablet 97.2 mg 97.2 mg, Oral, Every 4 hours, First dose on Sat07/08/23 at 1930, OK to HOLD if overly sedated 0304 (Given - Provider: Roger Mullisn RN)0746 (Given - Provider: Stephanie Schmitt RN)1152 (Given - Provider: Stephanie Schmitt RN)1642 (Given - Provider: Stephanie Schmitt, JAY)2052 (Given - Provider: Evelyn Abad RN) 0102 (Given - Provider: Evelyn Abad RN)0507 (Given - Provider: Evelyn Abad RN)0926 (Given - Provider: Nicole Albrecht RN)1313 (Given - Provider: Nicole Albrecht RN)1722 (Given - Provider: Nicole Albrecht RN)2040 (Given - Provider: Evelyn Abad RN) 0106 (Given - Provider: Evelyn Abad, JAY)0505 (Given - Provider: Evelyn Abad RN)0848 (Given - Provider: Stephanie Schmitt RN)1300 (Not Given - Provider: Stephanie Schmitt RN - Reason: Other - Comment: discharged waiting ride.)1700 (Canceled Entry - Provider: Automatic Discharge Provider - Comment: Automatically canceled at discontinue of medication order) therapeutic multivitamin-minerals (Theragran-M) tablet (CANCELED) 1 tablet, Oral, Daily, First dose on Sat07/09/23 at 0900 0914 (Given - Provider: Stephanie Schmitt RN) 0900 (Not Given - Provider: Nicole Albrecht RN - Reason: Other - Comment: pt allergy to nickel) thiamine (Vitamin B1) tablet 100 mg 100 mg, Oral, Daily, First dose on Sat07/08/23 at 1920 0914 (Given - Provider: Stephanie Schmitt RN) 0926 (Given - Provider: Nicole Albrecht RN) 0848 (Given - Provider: Stephanie Schmitt, RN) PRN Medication Order 07/09/2023 07/10/2023 07/11/2023 albuterol 108 (90 Base) MCG/ACT inhaler 2 puff 2 puff, Inhalation, Every 6 hours PRN, wheezing, shortness of breath, Starting on Sat07/09/23 at 0233 0200 (Given - Provider: Roger Mullins RN) 0628 (Given - Provider: Evelyn Abad RN) aluminum & magnesium hydroxide-simethicone (Mylanta) 200-200-20 MG/5ML oral suspension 10 mL 10 mL, Oral, 3 times daily PRN, indigestion, Starting on Sat07/09/23 at 1022 hydrOXYzine pamoate (Vistaril) capsule 50 mg 50 mg, Oral, Every 6 hours PRN, anxiety, Starting on Sat07/08/23 at 1914 0131 (Given - Provider: Kristina Hampton RN) ibuprofen tablet 400 mg 400 mg, Oral, Every 6 hours PRN, pain 1-10, Starting on Sat07/08/23 at 1914 LORazepam (Ativan) tablet 1 mg (CANCELED)(Linked Group 1) 1 mg, Oral, Every 1 hour PRN, other, For alcohol withdrawal, Starting on Sat07/08/23 at 1812, For CIWA score 8 to 10. Reassess CIWA one hour after each dose of medication and as needed. 0304 (Given - Provider: Roger Mullins RN) nicotine polacrilex (Commit) lozenge 2 mg 2 mg, Mouth/Throat, Every 2 hour PRN, smoking cessation, Starting on Sat07/09/23 at 2055 2121 (Given - Provider: Evelyn Abad, JAY) 0350 (Given - Provider: Evelyn Abad, JAY)1243 (Given - Provider: Nicole Albrecht, JAY - Comment: Nicotine craving)1514 (Given - Provider: Nicole Albrecht, JAY - Comment: nicotine craving)1817 (Given - Provider: Nicole Albrecht, JAY - Comment: Nicotine cravings)2040 (Given - Provider: Evelyn Abad RN) 0848 (Given - Provider: Stephanie Schmitt, JAY)1214 (Given - Provider: Stephanie Schmitt, RN) ondansetron ODT (Zofran-ODT) disintegrating tablet 4 mg 4 mg, Oral, Every 8 hours PRN, nausea, vomiting, Starting on Sat07/08/23 at 1914 0131 (Given - Provider: Kristina Hampton, RN) traZODone (Desyrel) tablet 50 mg 50 mg, Oral, Nightly PRN, sleep, Starting on Sat07/08/23 at 1914 0131 (Given - Provider: Kristina Hampton RN) Linked Groups Order Group 1: LORazepam (Ativan) tablet 1 mg (CANCELED)Jump to med 1 mg, Oral, Every 1 hour PRN, other, For alcohol withdrawal, Starting on Sat07/08/23 at 1812, For CIWA score 8 to 10. Reassess CIWA one hour after each dose of medication and as needed. Or LORazepam (Ativan) injection 1 mg (CANCELED) 1 mg, IntraVENous, Every 1 hour PRN, withdrawal, For alcohol withdrawal, Starting on Sat07/08/23 at 1812, For CIWA score 8 to 10. If both oral and intravenous CIWA medications ordered, use intravenous if unable to tolerate oral equivalent. Reassess CIWA one hour after each dose of medication and as needed. For IV doses dilute dose with 1ml NS. Or LORazepam (Ativan) tablet 2 mg (CANCELED) 2 mg, Oral, Every 1 hour PRN, other, For alcohol withdrawal, Starting on Sat07/08/23 at 1812, For CIWA score >11. Reassess CIWA one hour after each dose of medication and as needed. Or LORazepam (Ativan) injection 2 mg (CANCELED) 2 mg, IntraVENous, Every 1 hour PRN, withdrawal, For alcohol withdrawal., Starting on Sat07/08/23 at 1812, For CIWA score >11. If both oral and intravenous CIWA medications ordered, use intravenous if unable to tolerate oral equivalent. Reassess CIWA one hour after each dose of medication and as needed. For IV doses dilute dose with 1ml NS. Or LORazepam (Ativan) tablet 3 mg (CANCELED) 3 mg, Oral, Every 1 hour PRN, other, For alcohol withdrawal, Starting on Sat07/08/23 at 1812, For CIWA score 16 to 20. Reassess CIWA one hour after each dose of medication and as needed. Or LORazepam (Ativan) injection 3 mg (CANCELED) 3 mg, IntraVENous, Every 1 hour PRN, withdrawal, For alcohol withdrawal, Starting on Sat07/08/23 at 1812, For CIWA score 16 to 20. If both oral and intravenous CIWA medications ordered, use intravenous if unable to tolerate oral equivalent. Reassess CIWA one hour after each dose of medication and as needed. For IV doses dilute dose with 1ml NS. Or LORazepam (Ativan) tablet 4 mg (CANCELED) 4 mg, Oral, Every 1 hour PRN, other, For alcohol withdrawal, Starting on Sat07/08/23 at 1812, For CIWA score greater than 20. Reassess CIWA one hour after each dose of medication and as needed. Or LORazepam (Ativan) injection 4 mg (CANCELED) 4 mg, IntraVENous, Every 1 hour PRN, withdrawal, For alcohol withdrawal, Starting on Sat07/08/23 at 1812, For CIWA score greater than 20. If both oral and intravenous CIWA medications ordered, use intravenous if unable to tolerate oral equivalent. Reassess CIWA one hour after each dose of medication and as needed. For IV doses dilute dose with 1ml NS. Scheduled Medication Order 07/29/2023 07/30/2023 07/31/2023 acamprosate (Campral) EC tablet 333 mg 333 mg, Oral, 3 times daily, First dose on Sat07/30/23 at 1400, Do not crush, chew, or split. 1444 (Given - Provider: Virgilio Bone RN)2039 (Given - Provider: Yasemin Abdul RN) 0809 (Given - Provider: Lauren Irby, JAY)1330 (Given - Provider: Lauren Irby RN) gabapentin (Neurontin) capsule 600 mg 600 mg, Oral, 3 times daily, First dose on Sat07/29/23 at 1400 1350 (Given - Provider: Tracy Davies RN)212 (Given - Provider: Yasemin Abdul RN) 0852 (Given - Provider: Virgilio Bone RN)1444 (Given - Provider: Virgilio Bone RN)2040 (Given - Provider: Yasemin Abdul RN) 0809 (Given - Provider: Lauren Irby, JAY)1330 (Given - Provider: Lauren Irby RN) ipratropium-albuterol (Duo-Neb) 0.5-2.5 mg/3 mL nebulizer solution 3 mL (CANCELED) 3 mL, Nebulization, 3 times daily, First dose on Sat07/28/23 at 0800 0803 (Not Given - Provider: Kaelyn Ta RRT - Reason: Patient/family refused - Comment: Pt. wanted to sleep)1220 (Given - Provider: Kaelyn Ta, SYDNIE)2155 (Given - Provider: Usman Escoto RCP) 0841 (Given - Provider: Katherine Ortiz RCP) nicotine (Nicoderm, Step 1) 21 MG/24HR patch 1 patch 1 patch, TransDERmal, Administer over 24 Hours, Daily, First dose on 07/28/23 at 0900 0900 (Return to Cabinet - Provider: Tracy Davies RN - Comment: not applied. Pt wants lozenge) 0900 (Not Given - Provider: Virgilio Bone RN - Reason: Patient/family refused) 0900 (Not Given - Provider: Lauren Irby RN - Reason: Patient/family refused) pantoprazole (ProtoNix) EC tablet 40 mg 40 mg, Oral, Daily before breakfast, First dose on Sat07/29/23 at 0945, Do not crush, chew, or split. 1022 (Given - Provider: Tracy Davies RN) 0431 (Given - Provider: Yasemin Abdul RN) 0439 (Given - Provider: Yasemin Abdul RN) PHENobarbital (Luminal) tablet 32.4 mg (COMPLETED) 32.4 mg, Oral, Once, On Sat07/30/23 at 2300, For 1 dose 2251 (Given - Provider: Yasemin Abdul RN) PHENobarbital (Luminal) tablet 64.8 mg (CANCELED) 64.8 mg, Oral, Every 4 hours, First dose (after last modification) on Sat07/28/23 at 1300, Hold for oversedation 0105 (Given - Provider: Kristina Hampton RN)0454 (Given - Provider: Kristina Hampton RN)0844 (Given - Provider: Tracy Davies RN)1301 (Given - Provider: Tracy Davies RN)1735 (Given - Provider: Tracy Davies RN)212 (Given - Provider: Yasemin Abdul RN) 0111 (Given - Provider: Yasemin Abdul RN)0431 (Given - Provider: Yasemin Abdul RN)0852 (Given - Provider: Virgilio Bone, RN)1300 (Not Given - Provider: Virgilio Bone RN - Reason: See Provider Order) PHENobarbital (Luminal) tablet 64.8 mg (COMPLETED) 64.8 mg, Oral, Every 6 hours, First dose (after last modification) on Sat07/30/23 at 1900, For 1 dose, Hold for oversedation 1802 (Given - Provider: Virgilio Bone, RN) thiamine (Vitamin B1) tablet 100 mg 100 mg, Oral, Daily, First dose on Sat07/30/23 at 1330 1444 (Given - Provider: Virgilio Bone RN) 0809 (Given - Provider: Lauren Irby RN) PRN Medication Order 07/29/2023 07/30/2023 07/31/2023 acetaminophen (Tylenol) tablet 650 mg 650 mg, Oral, Every 6 hours PRN, mild pain (1-3), moderate pain (4-6), headaches, fever, severe pain 7-10, Starting on Sat07/27/23 at 2120 albuterol 108 (90 Base) MCG/ACT inhaler 2 puff 2 puff, Inhalation, Every 6 hours PRN, wheezing, shortness of breath, Starting on Sat07/29/23 at 0936 2350 (Given - Provider: Yasemin Abdul RN) aluminum & magnesium hydroxide-simethicone (Mylanta) 200-200-20 MG/5ML oral suspension 10 mL 10 mL, Oral, 3 times daily PRN, indigestion, Starting on 07/27/23 at 2120 hydrOXYzine pamoate (Vistaril) capsule 50 mg 50 mg, Oral, Every 6 hours PRN, allergies, anxiety, Starting on 07/27/23 at 2120 1710 (Given - Provider: Virgilio Bone RN) ipratropium-albuterol (Duo-Neb) 0.5-2.5 mg/3 mL nebulizer solution 3 mL 3 mL, Nebulization, 3 times daily PRN, wheezing, Starting on 07/30/23 at 1400 loperamide (Imodium) capsule 2 mg 2 mg, Oral, 4 times daily PRN, diarrhea, Starting on 07/27/23 at 2121, After each loose stool magnesium hydroxide (Milk of Magnesia) 400 MG/5ML suspension 30 mL 30 mL, Oral, 2 times daily PRN, constipation, Starting on 07/27/23 at 2122 nicotine polacrilex (Commit) lozenge 2 mg 2 mg, Mouth/Throat, Every 2 hour PRN, smoking cessation, Starting on 07/28/23 at 0825 1022 (Given - Provider: Tracy Davies, RN)1636 (Given - Provider: Tracy Davies RN)2009 (Given - Provider: Corinne Navarrete RN)222 (Given - Provider: Yasemin Abdul RN) 0858 (Given - Provider: Virgilio Bone RN)125 (Given - Provider: Neelam Cody RN - Comment: pt. requested)182 (Given - Provider: Virgilio Bone RN)2024 (Given - Provider: Lizet Martin RN)220 (Given - Provider: Yasemin Abdul RN) 0810 (Given - Provider: Lauren Irby RN) ondansetron ODT (Zofran-ODT) disintegrating tablet 4 mg 4 mg, Oral, Every 6 hours PRN, nausea, vomiting, Starting on 07/27/23 at 212 traZODone (Desyrel) tablet 100 mg 100 mg, Oral, Nightly PRN, sleep, Starting on 07/27/23 at 2122 2248 (Given - Provider: Yasemin Abdul RN) 2251 (Given - Provider: Yasemin Abdul RN) Scheduled Medication Order 11/28/2023 11/29/2023 11/30/2023 enoxaparin (Lovenox) syringe 40 mg 40 mg, SubCUTAneous, Every 24 hours scheduled (Daily), First dose on Mounika 11/28/23 at 0900, Indication of Use: Prophylaxis-DVT/PE, Indications: Prophylaxis of Venous Thromboembolism 0900 (Not Given - Provider: Gris Dillon RN - Reason: Patient/family refused) 0907 (Not Given - Provider: Savana Wilson RN - Reason: Patient/family refused) 0900 (Not Given - Provider: Dee Lyn RN - Reason: Patient/family refused) folic acid (Folvite) tablet 1 mg 1 mg, Oral, Daily, First dose on Mounika 11/28/23 at 0900 0839 (Given - Provider: Gris Dillon, RN) 0907 (Given - Provider: Savana Wilson, JAY) 0908 (Given - Provider: Dee Lyn RN) gabapentin (Neurontin) capsule 600 mg 600 mg, Oral, 3 times daily, First dose on Mouinka 11/28/23 at 0900 0838 (Given - Provider: Gris Dillon, RN)1409 (Given - Provider: Gris Dillon, RN)2224 (Given - Provider: Arsenio Chowdhury RN) 0907 (Given - Provider: Savana Wilson RN)1348 (Given - Provider: Savana Wilson RN)2138 (Given - Provider: Mp Butler RN) 0908 (Given - Provider: Dee Lyn RN) LORazepam (Ativan) tablet 2 mg (COMPLETED) 2 mg, Oral, Once, On Mounika 11/28/23 at 0205, For 1 dose 0224 (Given - Provider: Papito Ruiz, JAY) naltrexone (Depade) tablet 50 mg 50 mg, Oral, Daily, First dose on 11/30/23 at 0900 0908 (Given - Provider: Dee Lny RN) pantoprazole (ProtoNix) EC tablet 40 mg 40 mg, Oral, Daily before breakfast, First dose on Mounika 11/28/23 at 0600, Do not crush, chew, or split. 0615 (Given - Provider: Papito Ruiz, JAY) 0643 (Given - Provider: Arsenio Chowdhury, JAY) 0555 (Given - Provider: Mp Butler RN) thiamine (Vitamin B1) tablet 100 mg 100 mg, Oral, Daily, First dose on Mounika 11/28/23 at 0900 0839 (Given - Provider: Gris Dillon RN) 0907 (Given - Provider: Savana Wilson RN) 0908 (Given - Provider: Dee Lyn RN) PRN Medication Order 11/28/2023 11/29/2023 11/30/2023 acetaminophen (Tylenol) suppository 650 mg(Linked Group 1) 650 mg, Rectal, Every 6 hours PRN, mild pain (1-3), fever, For temp greater than 100.4 F (38 C), Starting on Mounika 11/28/23 at 0520, Administer if oral route cannot be used. Maximum dose of acetaminophen is 4000 mg from all sources in 24 hours. acetaminophen (Tylenol) tablet 650 mg(Linked Group 1) 650 mg, Oral, Every 6 hours PRN, mild pain (1-3), fever, For temp greater than 100.4 F (38 C), Starting on Mounika 11/28/23 at 0520, Maximum dose of acetaminophen is 4000 mg from all sources in 24 hours. aluminum & magnesium hydroxide-simethicone (Mylanta) 200-200-20 MG/5ML oral suspension 20 mL(Linked Group 2) 20 mL, Oral, Every 6 hours PRN, indigestion, heartburn, Starting on Mounika 11/28/23 at 0829 calcium carbonate (Tums) chewable tablet 1,000 mg(Linked Group 2) 1,000 mg, Oral, Every 6 hours PRN, indigestion, heartburn, Starting on Mounika 11/28/23 at 0829 LORazepam (Ativan) injection 1 mg(Linked Group 3) 1 mg, IntraVENous, Every 1 hour PRN, withdrawal, For alcohol withdrawal, Starting on Mounika 11/28/23 at 0201, For CIWA score 8 to 10. If both oral and intravenous CIWA medications ordered, use intravenous if unable to tolerate oral equivalent. Reassess CIWA one hour after each dose of medication and as needed. For IV doses dilute dose with 1ml NS. 1427 (See Alternative - Provider: Gris Dillon, JAY)1557 (See Alternative - Provider: Gris Dillon RN) 1348 (See Alternative - Provider: Savana Wilson RN)2138 (See Alternative - Provider: Mp Butler RN) LORazepam (Ativan) injection 2 mg(Linked Group 3) 2 mg, IntraVENous, Every 1 hour PRN, withdrawal, For alcohol withdrawal., Starting on Mounika 11/28/23 at 0201, For CIWA score 11 to 15. If both oral and intravenous CIWA medications ordered, use intravenous if unable to tolerate oral equivalent. Reassess CIWA one hour after each dose of medication and as needed. For IV doses dilute dose with 1ml NS. 1427 (See Alternative - Provider: Gris Dillon RN)1557 (See Alternative - Provider: Gris Dlilon RN) 1348 (See Alternative - Provider: Savana Wilson RN)2138 (See Alternative - Provider: Mp Butler RN) LORazepam (Ativan) injection 3 mg(Linked Group 3) 3 mg, IntraVENous, Every 1 hour PRN, withdrawal, For alcohol withdrawal, Starting on Mounika 11/28/23 at 0201, For CIWA score 16 to 20. If both oral and intravenous CIWA medications ordered, use intravenous if unable to tolerate oral equivalent. Reassess CIWA one hour after each dose of medication and as needed. For IV doses dilute dose with 1ml NS. 1427 (See Alternative - Provider: Gris Dillon RN)1557 (See Alternative - Provider: Gris Dillon RN) 1348 (See Alternative - Provider: Savana Wilson RN)2138 (See Alternative - Provider: Mp Butler RN) LORazepam (Ativan) injection 4 mg(Linked Group 3) 4 mg, IntraVENous, Every 1 hour PRN, withdrawal, For alcohol withdrawal, Starting on Mounika 11/28/23 at 0201, For CIWA score greater than 20. If both oral and intravenous CIWA medications ordered, use intravenous if unable to tolerate oral equivalent. Reassess CIWA one hour after each dose of medication and as needed. For IV doses dilute dose with 1ml NS. 1427 (See Alternative - Provider: Gris Dillon RN)1557 (See Alternative - Provider: Gris Dillon RN) 1348 (See Alternative - Provider: Savana Wilson RN)2138 (See Alternative - Provider: Mp Butler RN) LORazepam (Ativan) tablet 1 mg(Linked Group 3) 1 mg, Oral, Every 1 hour PRN, other, For alcohol withdrawal, Starting on Mounika 11/28/23 at 0201, For CIWA score 8 to 10. Reassess CIWA one hour after each dose of medication and as needed. 1427 (See Alternative - Provider: Gris Dillon RN)1557 (Given - Provider: Gris Dillon RN) 1348 (Given - Provider: Savana Wilson RN)2138 (Given - Provider: Mp Butler RN) LORazepam (Ativan) tablet 2 mg(Linked Group 3) 2 mg, Oral, Every 1 hour PRN, other, For alcohol withdrawal, Starting on Sat11/28/23 at 0201, For CIWA score 11 to 15. Reassess CIWA one hour after each dose of medication and as needed. 1427 (Given - Provider: Gris Dillon RN)1557 (See Alternative - Provider: Gris Dillon RN) 1348 (See Alternative - Provider: Savana Wilson RN)2138 (See Alternative - Provider: Mp Butler RN) LORazepam (Ativan) tablet 3 mg(Linked Group 3) 3 mg, Oral, Every 1 hour PRN, other, For alcohol withdrawal, Starting on Sat11/28/23 at 0201, For CIWA score 16 to 20. Reassess CIWA one hour after each dose of medication and as needed. 1427 (See Alternative - Provider: Gris Dillon RN)1557 (See Alternative - Provider: Gris Dillon RN) 1348 (See Alternative - Provider: Savana Wilson RN)2138 (See Alternative - Provider: Mp Butler RN) LORazepam (Ativan) tablet 4 mg(Linked Group 3) 4 mg, Oral, Every 1 hour PRN, other, For alcohol withdrawal, Starting on Sat11/28/23 at 0201, For CIWA score greater than 20. Reassess CIWA one hour after each dose of medication and as needed. 1427 (See Alternative - Provider: Gris Dillon RN)1557 (See Alternative - Provider: Gris Dillon RN) 1348 (See Alternative - Provider: Savana Wilson RN)2138 (See Alternative - Provider: Mp Butler RN) nicotine polacrilex (Nicorette) gum 2 mg 2 mg, Mouth/Throat, Every 2 hour PRN, smoking cessation, Starting on Sat11/28/23 at 1119 1306 (Given - Provider: Gris Dillon RN) 0908 (Given - Provider: Savana Wilson RN) nicotine polacrilex (Nicorette) gum 4 mg 4 mg, Mouth/Throat, Every 2 hour PRN, smoking cessation, nicotine craving, urge to smoke, Starting on Sat11/29/23 at 1216, Instruct patient to suck on lozenge until it dissolves; it should not be bitten, chewed, or swallowed. Maximum 20 lozenges per day. To increase chances of quitting, recommended to use at least 9 lozenges per day in the first 6 weeks of cessation. 1715 (Given - Provider: Keshia Armijo, RN)2139 (Given - Provider: Mp Butler RN) ondansetron (Zofran) injection 4 mg(Linked Group 4) 4 mg, IntraVENous, Every 6 hours PRN, nausea, vomiting, Starting on Mounika 11/28/23 at 0520, 1st Line. Give IV if patient is unable to take orally. If inadequate response within 60 minutes, proceed to next-line agent or contact provider if no further options ordered. ondansetron ODT (Zofran-ODT) disintegrating tablet 4 mg(Linked Group 4) 4 mg, Oral, Every 8 hours PRN, nausea, vomiting, Starting on Sat11/28/23 at 0520, 1st Line. If inadequate response within 60 minutes, proceed to next-line agent or contact provider if no further options ordered. Patient should allow tablet to dissolve on tongue. Do not remove from blister pack until just before administering. polyethylene glycol (PEG) 3350 (Miralax) packet 17 g 17 g, Oral, Daily PRN, constipation, Starting on Sat11/28/23 at 0520, 1st line for treatment of constipation - give scheduled if no bowel movement in past 24 hours. Linked Groups Order Group 1: acetaminophen (Tylenol) tablet 650 mgJump to med 650 mg, Oral, Every 6 hours PRN, mild pain (1-3), fever, For temp greater than 100.4 F (38 C), Starting on Mounika 11/28/23 at 0520, Maximum dose of acetaminophen is 4000 mg from all sources in 24 hours. Or acetaminophen (Tylenol) suppository 650 mgJump to med 650 mg, Rectal, Every 6 hours PRN, mild pain (1-3), fever, For temp greater than 100.4 F (38 C), Starting on Mounika 11/28/23 at 0520, Administer if oral route cannot be used. Maximum dose of acetaminophen is 4000 mg from all sources in 24 hours. Group 2: aluminum & magnesium hydroxide-simethicone (Mylanta) 200-200-20 MG/5ML oral suspension 20 mLJump to med 20 mL, Oral, Every 6 hours PRN, indigestion, heartburn, Starting on Mounika 11/28/23 at 0829 Or calcium carbonate (Tums) chewable tablet 1,000 mgJump to med 1,000 mg, Oral, Every 6 hours PRN, indigestion, heartburn, Starting on Mounika 11/28/23 at 0829 Group 3: LORazepam (Ativan) tablet 1 mgJump to med 1 mg, Oral, Every 1 hour PRN, other, For alcohol withdrawal, Starting on Mounika 11/28/23 at 0201, For CIWA score 8 to 10. Reassess CIWA one hour after each dose of medication and as needed. Or LORazepam (Ativan) injection 1 mgJump to med 1 mg, IntraVENous, Every 1 hour PRN, withdrawal, For alcohol withdrawal, Starting on Sat11/28/23 at 0201, For CIWA score 8 to 10. If both oral and intravenous CIWA medications ordered, use intravenous if unable to tolerate oral equivalent. Reassess CIWA one hour after each dose of medication and as needed. For IV doses dilute dose with 1ml NS. Or LORazepam (Ativan) tablet 2 mgJump to med 2 mg, Oral, Every 1 hour PRN, other, For alcohol withdrawal, Starting on Mounika 11/28/23 at 0201, For CIWA score 11 to 15. Reassess CIWA one hour after each dose of medication and as needed. Or LORazepam (Ativan) injection 2 mgJump to med 2 mg, IntraVENous, Every 1 hour PRN, withdrawal, For alcohol withdrawal., Starting on Mounika 11/28/23 at 0201, For CIWA score 11 to 15. If both oral and intravenous CIWA medications ordered, use intravenous if unable to tolerate oral equivalent. Reassess CIWA one hour after each dose of medication and as needed. For IV doses dilute dose with 1ml NS. Or LORazepam (Ativan) tablet 3 mgJump to med 3 mg, Oral, Every 1 hour PRN, other, For alcohol withdrawal, Starting on Sat11/28/23 at 0201, For CIWA score 16 to 20. Reassess CIWA one hour after each dose of medication and as needed. Or LORazepam (Ativan) injection 3 mgJump to med 3 mg, IntraVENous, Every 1 hour PRN, withdrawal, For alcohol withdrawal, Starting on Mounika 11/28/23 at 0201, For CIWA score 16 to 20. If both oral and intravenous CIWA medications ordered, use intravenous if unable to tolerate oral equivalent. Reassess CIWA one hour after each dose of medication and as needed. For IV doses dilute dose with 1ml NS. Or LORazepam (Ativan) tablet 4 mgJump to med 4 mg, Oral, Every 1 hour PRN, other, For alcohol withdrawal, Starting on Mounika 11/28/23 at 0201, For CIWA score greater than 20. Reassess CIWA one hour after each dose of medication and as needed. Or LORazepam (Ativan) injection 4 mgJump to med 4 mg, IntraVENous, Every 1 hour PRN, withdrawal, For alcohol withdrawal, Starting on Mounika 11/28/23 at 0201, For CIWA score greater than 20. If both oral and intravenous CIWA medications ordered, use intravenous if unable to tolerate oral equivalent. Reassess CIWA one hour after each dose of medication and as needed. For IV doses dilute dose with 1ml NS. Group 4: ondansetron ODT (Zofran-ODT) disintegrating tablet 4 mgJump to med 4 mg, Oral, Every 8 hours PRN, nausea, vomiting, Starting on Mounika 11/28/23 at 0520, 1st Line. If inadequate response within 60 minutes, proceed to next-line agent or contact provider if no further options ordered. Patient should allow tablet to dissolve on tongue. Do not remove from blister pack until just before administering. Or ondansetron (Zofran) injection 4 mgJump to med 4 mg, IntraVENous, Every 6 hours PRN, nausea, vomiting, Starting on Mounika 11/28/23 at 0520, 1st Line. Give IV if patient is unable to take orally. If inadequate response within 60 minutes, proceed to next-line agent or contact provider if no further options ordered. Scheduled Medication Order 01/22/2024 01/23/2024 01/24/2024 folic acid (Folvite) tablet 1 mg 1 mg, Oral, Daily, First dose on Sat01/21/24 at 0900 0824 (Given - Provider: Adeline Peacock, RN) 0912 (Given - Provider: Tracy Davies, RN) 0819 (Given - Provider: Virgilio Bone, RN) gabapentin (Neurontin) capsule 600 mg 600 mg, Oral, 3 times daily, First dose on Sat01/21/24 at 0945 0824 (Given - Provider: Adeline Peacock, RN)1417 (Given - Provider: Adeline Peacock, RN)2036 (Given - Provider: Evelyn Abad, JAY) 0912 (Given - Provider: Tracy Davies, JAY)1437 (Given - Provider: Tracy Davies, RN)2114 (Given - Provider: Yasemin Abdul, RN) 0819 (Given - Provider: Virgilio Bone, RN)1400 (Canceled Entry - Provider: Automatic Discharge Provider - Comment: Automatically canceled at discontinue of medication order) melatonin tablet 5 mg 5 mg, Oral, Nightly, First dose on Sat01/20/24 at 2300 2250 (Given - Provider: Evelyn Abad, JAY) 2321 (Given - Provider: Yasemin Abdul, JAY - Comment: no sleepy) naltrexone (Depade) tablet 50 mg 50 mg, Oral, Daily With Dinner, First dose on Sat01/22/24 at 1700 1659 (Given - Provider: Adeline Peacock RN) 1720 (Given - Provider: Tracy Davies, JAY) naltrexone ER (Vivitrol) injection 380 mg (COMPLETED) 380 mg, IntraMUSCular, Once, On Sat01/24/24 at 0700, For 1 dose, Follow Package Insert. Bring vial to room temperature over 1 hour. Reconstitute with 3.4ml of provided diluent. Shake well. Draw up and administer 4mL dose deep IM into gluteal muscle IMMEDIATELY. Do not give IV or subcutaneously. Provide patient with wallet card and medical ID bracelet kit sent up by Pharmacy [id number] (Given - Provid er: Virgilio Bone RN) nicotine (Nicoderm, Step 1) 21 MG/24HR patch 1 patch(Linked Group 1) 1 patch, TransDERmal, Administer over 24 Hours, Daily, First dose on Sat01/21/24 at 0900, For 42 days, Apply new patch to nonhairy, clean, dry skin on the upper body or upper outer arm. Rotate patch sites. Notify Pharmacy if patient or provider prefers patch to be removed at bedtime and replaced in the morning. 0824 (Medication Applied - Provider: Adeline Peacock RN) 0911 (Medication Removed - Provider: Tracy Davies RN)0912 (Medication Applied - Provider: Tracy Davies RN) 0819 (Medication Removed - Provider: Virgilio Bone, RN)0820 (Medication Applied - Provider: Virgilio Bone, RN)1410 (Due: Medication Removed - Provider: Automatic Discharge Provider - Comment: Time automatically adjusted from order being discontinued) pantoprazole (ProtoNix) EC tablet 40 mg 40 mg, Oral, Daily before breakfast, First dose on Sat01/21/24 at 0945, Do not crush, chew, or split. 0631 (Given - Provider: Evelyn Abad RN) 0556 (Given - Provider: Evelyn Abad RN) 0550 (Given - Provider: Yasemin Abdul, JAY) PHENobarbital tablet 32.4 mg 32.4 mg, Oral, Every 4 hours, First dose (after last modification) on Sat01/23/24 at 1900, HOLD for sedation, SBP < 100 and / or HR < 50 1836 (Given - Provider: Tracy Davies RN)2321 (Given - Provider: Yasemin Abdul, JAY) 0228 (Given - Provider: Yasemin Abdul, JAY)0631 (Given - Provider: Yasemin Abdul RN)1224 (Given - Provider: Virgilio Bone, JAY)1500 (Canceled Entry - Provider: Automatic Discharge Provider - Comment: Automatically canceled at discontinue of medication order) PHENobarbital tablet 64.8 mg (CANCELED) 64.8 mg, Oral, Every 4 hours, First dose (after last modification) on Sat01/22/24 at 1100, HOLD for sedation, SBP < 100 and / or HR < 50 1118 (Given - Provider: Adeline Peacock RN)1459 (Given - Provider: Adeline Peacock RN)1848 (Given - Provider: Adeline Peacock RN)2250 (Given - Provider: Evelyn Abad, JAY) 0302 (Given - Provider: Evelyn Abad, RN)0659 (Given - Provider: Evelyn Abad, RN)1128 (Given - Provider: Tracy Davies RN)1500 (Not Given - Provider: Tracy Davies RN - Reason: Other - Comment: order modified) PHENobarbital tablet 97.2 mg (CANCELED) 97.2 mg, Oral, Every 4 hours, First dose (after last modification) on Sat01/21/24 at 1100, HOLD for sedation, SBP < 100 and / or HR < 50 0303 (Given - Provider: Evelyn Abad, RN)0631 (Given - Provider: Evelyn Abad, RN) thiamine (Vitamin B1) tablet 100 mg 100 mg, Oral, Daily, First dose on Sat01/21/24 at 0900 0824 (Given - Provider: Adeline Peacock RN) 0912 (Given - Provider: Tracy Davies RN) 0819 (Given - Provider: Virgilio Bone RN) PRN Medication Order 01/22/2024 01/23/2024 01/24/2024 albuterol 108 (90 Base) MCG/ACT inhaler 2 puff 2 puff, Inhalation, Every 6 hours PRN, wheezing, shortness of breath, Starting on Sat01/21/24 at 0939 0825 (Given - Provider: Adeline Peacock, JAY) bisacodyl (Dulcolax) suppository 10 mg 10 mg, Rectal, Daily PRN, constipation, Starting on Sat01/20/24 at 2249, 2nd line for treatment of constipation - give scheduled (in addition to 1st line agent) if no bowel movement in past 48 hours busPIRone (Buspar) tablet 10 mg 10 mg, Oral, Every 8 hours PRN, Anxiety, Starting on Sat01/20/24 at 2251 1305 (Given - Provider: Virgilio Bone, JAY) doxepin (SINEquan) capsule 10 mg 10 mg, Oral, Nightly PRN, sleep, Starting on Sat01/20/24 at 2250, 2nd line after melatonin ibuprofen tablet 400 mg 400 mg, Oral, Every 6 hours PRN, mild pain (1-3), moderate pain (4-6), severe pain (7-10), fever, headaches, Starting on Sat01/20/24 at 2253 ipratropium-albuterol (Duo-Neb) 0.5-2.5 mg/3 mL nebulizer solution 3 mL 3 mL, Nebulization, Every 4 hours PRN, wheezing, Starting on Sat01/21/24 at 0703, 2nd line for Wheezing or SOB if albuterol inhaler doesn't help methocarbamol (Robaxin) tablet 1,000 mg 1,000 mg, Oral, Every 6 hours PRN, muscle spasms, Starting on Sat01/20/24 at 2250 nicotine polacrilex (Commit) lozenge 2 mg 2 mg, Mouth/Throat, Every 2 hour PRN, smoking cessation, nicotine craving, urge to smoke, Starting on Sat01/20/24 at 2256, Instruct patient to suck on lozenge until it dissolves; it should not be bitten, chewed, or swallowed. Maximum 20 lozenges per day. To increase chances of quitting, recommended to use at least 9 lozenges per day in the first 6 weeks of cessation. 0631 (Given - Provider: Evelyn Abad RN)0824 (Given - Provider: Adeline Peacock RN - Comment: pt requested)1118 (Given - Provider: Adeline Peacock RN - Comment: patient requested)1417 (Given - Provider: Adeline Peacock RN - Comment: pt requested)1659 (Given - Provider: Adeline Peacock RN - Comment: pt requested)1848 (Given - Provider: Adeline Peacock RN)2010 (Given - Provider: Evelyn Abad RN) 0726 (Given - Provider: Tracy Davies RN)0918 (Given - Provider: Tracy Davies RN)1129 (Given - Provider: Tracy Davies, JAY)1439 (Given - Provider: Tracy Davies, RN)1720 (Given - Provider: Tracy Davies RN)2114 (Given - Provider: Yasemin Abdul RN)2329 (Given - Provider: Kristina Hampton RN)2350 (Not Given - Provider: Yasemin Abdul RN - Reason: Other - Comment: scaned wrong med) 0631 (Given - Provider: Yasemin Abdul RN)0826 (Given - Provider: Virgilio Bone, RN)1225 (Given - Provider: Virgilio Bone, RN) nicotine polacrilex (Nicorette) gum 2 mg 2 mg, Mouth/Throat, Every 1 hour PRN, smoking cessation, nicotine craving, urge to smoke, Starting on Sat01/20/24 at 2255, Instruct patient to chew into gum, then place between the cheek and gum to enhance absorption. To increase chances of quitting, recommended to chew and park at least 9 pieces per day in the first 6 weeks of cessation., Indications: Nicotine Dependence ondansetron (Zofran) injection 4 mg(Linked Group 2) 4 mg, IntraVENous, Every 6 hours PRN, nausea, vomiting, Starting on Sat01/20/24 at 2247, 1st Line. Give IV if patient is unable to take orally. If inadequate response within 60 minutes, proceed to next-line agent or contact provider if no further options ordered. ondansetron ODT (Zofran-ODT) disintegrating tablet 4 mg(Linked Group 2) 4 mg, Oral, Every 8 hours PRN, nausea, vomiting, Starting on Sat01/20/24 at 2247, 1st Line. If inadequate response within 60 minutes, proceed to next-line agent or contact provider if no further options ordered. Patient should allow tablet to dissolve on tongue. Do not remove from blister pack until just before administering. polyethylene glycol (PEG) 3350 (Miralax) packet 17 g 17 g, Oral, Daily PRN, constipation, Starting on Sat01/20/24 at 2247, 1st line for treatment of constipation - give scheduled if no bowel movement in past 24 hours. sodium chloride 0.9% (NS) flush 5 mL 5 mL, IntraVENous, As needed, line care, Starting on Sat01/20/24 at 2256 traZODone (Desyrel) tablet 50 mg 50 mg, Oral, Nightly PRN, sleep, Starting on Sat01/20/24 at 2251, 3rd line agent if Melatonin (1st line) and Doxepin (2nd line) fail. Linked Groups Order Group 1: nicotine (Nicoderm, Step 1) 21 MG/24HR patch 1 patchJump to med 1 patch, TransDERmal, Administer over 24 Hours, Daily, First dose on Sat01/21/24 at 0900, For 42 days, Apply new patch to nonhairy, clean, dry skin on the upper body or upper outer arm. Rotate patch sites. Notify Pharmacy if patient or provider prefers patch to be removed at bedtime and replaced in the morning. Followed by nicotine (Nicoderm, Step 2) 14 MG/24HR patch 1 patch (CANCELED) 1 patch, TransDERmal, Administer over 24 Hours, Daily, First dose on Sat03/03/24 at 0900, For 14 days, Apply new patch to nonhairy, clean, dry skin on the upper body or upper outer arm. Rotate patch sites. Notify Pharmacy if patient or provider prefers patch to be removed at bedtime and replaced in the morning. Followed by nicotine (Nicoderm, Step 3) 7 MG/24HR patch 1 patch (CANCELED) 1 patch, TransDERmal, Administer over 24 Hours, Daily, First dose on Sat03/17/24 at 0900, For 14 days, Apply new patch to nonhairy, clean, dry skin on the upper body or upper outer arm. Rotate patch sites. Notify Pharmacy if patient or provider prefers patch to be removed at bedtime and replaced in the morning. Group 2: ondansetron ODT (Zofran-ODT) disintegrating tablet 4 mgJump to med 4 mg, Oral, Every 8 hours PRN, nausea, vomiting, Starting on Sat01/20/24 at 2247, 1st Line. If inadequate response within 60 minutes, proceed to next-line agent or contact provider if no further options ordered. Patient should allow tablet to dissolve on tongue. Do not remove from blister pack until just before administering. Or ondansetron (Zofran) injection 4 mgJump to med 4 mg, IntraVENous, Every 6 hours PRN, nausea, vomiting, Starting on Sat01/20/24 at 2247, 1st Line. Give IV if patient is unable to take orally. If inadequate response within 60 minutes, proceed to next-line agent or contact provider if no further options ordered. Scheduled Medication Order 04/10/2024 04/11/2024 04/12/2024 clobetasol (Temovate) 0.05 % cream Topical, 2 times daily, First dose on Sat04/10/24 at 0900 0900 (Not Given - Provider: Kody Keen RN - Reason: Medication not available)2100 (Not Given - Provider: Esteban Ocampo RN - Reason: Patient/family refused) 0900 (Not Given - Provider: Ceci Sandy RN - Reason: Patient/family refused)221 (Given - Provider: Rita Adan RN) 0900 (Not Given - Provider: Ceci Sandy RN - Reason: Patient/family refused) cloNIDine (Catapres) tablet 0.1 mg (CANCELED) 0.1 mg, Oral, Every 4 hours, First dose on Sat04/11/24 at 1100, HOLD if sleeping, sedated, SBP < 100 or DBP < 60 or HR < 50 or unsteady gait 1152 (Given - Provider: Ceci Sandy RN)1530 (Given - Provider: Ceci Sandy, RN)2019 (Given - Provider: Rita Adan, JAY) 0020 (Not Given - Provider: Rita Adan RN - Reason: Other - Comment: Pt is sleeping and med held per order)0515 (Given - Provider: Rita Adan, JAY) folic acid (Folvite) tablet 1 mg 1 mg, Oral, Daily, First dose on Sat04/10/24 at 0900 0937 (Given - Provider: Kody Keen RN) 0803 (Given - Provider: Ceci Sandy RN) 0841 (Given - Provider: Ceci Sandy RN) melatonin tablet 10 mg 10 mg, Oral, Nightly, First dose on Sat04/10/24 at 2100, HOLD if sleeping or sedated. OK with Trazodone. 210 (Given - Provider: Esteban Ocampo RN) 2019 (Given - Provider: Rita Adan, JAY) melatonin tablet 5 mg (CANCELED) 5 mg, Oral, Nightly, First dose on Sat04/10/24 at 0040 0112 (Given - Provider: Mercedes Kebede RN) pantoprazole (ProtoNix) EC tablet 40 mg 40 mg, Oral, Daily, First dose on Sat04/10/24 at 0900, Do not crush, chew, or split. 0936 (Given - Provider: Kody Keen RN) 0804 (Given - Provider: Ceci Sandy RN) 0841 (Given - Provider: Ceci Sandy, JAY) PHENobarbital tablet 64.8 mg (CANCELED) 64.8 mg, Oral, Every 6 hours, First dose on Sat04/11/24 at 1000, HOLD if sleeping, sedated, SBP < 100 or HR < 50. 1007 (Given - Provider: Ceci Sandy RN)1622 (Given - Provider: Ceci Sandy RN)2215 (Given - Provider: Rita Adan, RN) 0434 (Given - Provider: Rita Adan, RN) PHENobarbital tablet 97.2 mg (CANCELED) 97.2 mg, Oral, Every 4 hours, First dose on Sat04/10/24 at 0900, HOLD if sleeping, sedated, SBP < 100 or HR < 50. 0936 (Given - Provider: Kody Keen RN)1352 (Given - Provider: Kody Keen RN)1658 (Given - Provider: Kody Keen RN)2104 (Given - Provider: Esteban Ocampo RN) 0100 (Not Given - Provider: Esteban Ocampo RN - Reason: Other - Comment: pt sleeping)0604 (Given - Provider: Esteban Ocampo RN)0900 (Canceled Entry - Provider: Ceci Sandy RN) therapeutic multivitamin-minerals (Theragran-M) tablet 1 tablet, Oral, Daily, First dose on Sat04/10/24 at 0900 0936 (Given - Provider: Kody Keen RN) 0804 (Given - Provider: Ceci Sandy RN) 0841 (Given - Provider: Ceci Sandy, RN) thiamine (Vitamin B1) tablet 100 mg 100 mg, Oral, Daily, First dose on Sat04/10/24 at 0900 0936 (Given - Provider: Kody Keen RN) 0804 (Given - Provider: Ceci Sandy, JAY) 0841 (Given - Provider: Ceci Sandy, RN) PRN Medication Order 04/10/2024 04/11/2024 04/12/2024 albuterol 108 (90 Base) MCG/ACT inhaler 2 puff 2 puff, Inhalation, Every 6 hours PRN, wheezing, shortness of breath, Starting on Sat04/10/24 at 0037 2301 (Given - Provider: Rita Adan, JAY) dicyclomine (Bentyl) capsule 20 mg 20 mg, Oral, 3 times daily PRN, abdominal cramps, Starting on Sat04/10/24 at 0826 hydrOXYzine pamoate (Vistaril) capsule 50 mg (CANCELED) 50 mg, Oral, Every 6 hours PRN, anxiety, Starting on Sat04/10/24 at 0827, HOLD if sleeping, sedated or unsteady on feet. If holding because unsteady - RN my decide to give anyway provided the patient REMAINS IN BED. 1740 (Given - Provider: Ceci Sandy RN) ibuprofen tablet 600 mg 600 mg, Oral, Every 6 hours PRN, fever, headaches, pain 1-10, Starting on Sat04/10/24 at 0828, OK with tylenol if tylenol ordered. LORazepam (Ativan) tablet 2 mg (CANCELED)(Linked Group 1) 2 mg, Oral, Every 1 hour PRN, other, For alcohol withdrawal, Starting on Sat04/10/24 at 0037, For CIWA score 11 or greater. Reassess CIWA one hour after each dose of medication and as needed. 0112 (See Alternative - Provider: Mercedes Kebede RN)0747 (Given - Provider: Kody Keen RN)1111 (Given - Provider: Kody Keen RN)1807 (Given - Provider: Kody Keen RN) LORazepam (Ativan) tablet 3 mg (CANCELED)(Linked Group 1) 3 mg, Oral, Every 1 hour PRN, other, For alcohol withdrawal, Starting on Sat04/10/24 at 0037, For CIWA score 16 to 20. Reassess CIWA one hour after each dose of medication and as needed. 0112 (Given - Provider: Mercedes Kebede RN)0747 (See Alternative - Provider: Kody Keen RN)1111 (See Alternative - Provider: Kody Keen RN)1807 (See Alternative - Provider: Kody Keen RN) nicotine polacrilex (Nicorette) gum 2 mg 2 mg, Mouth/Throat, As needed, smoking cessation, Starting on Sat04/10/24 at 0938 ondansetron (Zofran) injection 4 mg(Linked Group 2) 4 mg, IntraVENous, Every 6 hours PRN, nausea, vomiting, Starting on Sat04/10/24 at 0037, 1st Line. Give IV if patient is unable to take orally. If inadequate response within 60 minutes, proceed to next-line agent or contact provider if no further options ordered. ondansetron ODT (Zofran-ODT) disintegrating tablet 4 mg(Linked Group 2) 4 mg, Oral, Every 8 hours PRN, nausea, vomiting, Starting on Sat04/10/24 at 0037, 1st Line. If inadequate response within 60 minutes, proceed to next-line agent or contact provider if no further options ordered. Patient should allow tablet to dissolve on tongue. Do not remove from blister pack until just before administering. polyethylene glycol (PEG) 3350 (Miralax) packet 17 g 17 g, Oral, Daily PRN, constipation, Starting on Sat04/10/24 at 0037, 1st line for treatment of constipation - give scheduled if no bowel movement in past 24 hours. traZODone (Desyrel) tablet 50 mg 50 mg, Oral, Nightly PRN, sleep, Starting on Sat04/10/24 at 0826, HOLD if sleeping or sedated. OK with melatonin. Linked Groups Order Group 1: LORazepam (Ativan) tablet 1 mg (CANCELED) 1 mg, Oral, Every 1 hour PRN, other, For alcohol withdrawal, Starting on Sat04/10/24 at 0037, For CIWA score 8 to 10. Reassess CIWA one hour after each dose of medication and as needed. Or LORazepam (Ativan) injection 1 mg (CANCELED) 1 mg, IntraVENous, Every 1 hour PRN, withdrawal, For alcohol withdrawal, Starting on Sat04/10/24 at 0037, For CIWA score 8 to 10. If both oral and intravenous CIWA medications ordered, use intravenous if unable to tolerate oral equivalent. Reassess CIWA one hour after each dose of medication and as needed. For IV doses dilute dose with 1ml NS. Or LORazepam (Ativan) tablet 2 mg (CANCELED)Jump to med 2 mg, Oral, Every 1 hour PRN, other, For alcohol withdrawal, Starting on Sat04/10/24 at 0037, For CIWA score 11 or greater. Reassess CIWA one hour after each dose of medication and as needed. Or LORazepam (Ativan) injection 2 mg (CANCELED) 2 mg, IntraVENous, Every 1 hour PRN, withdrawal, For alcohol withdrawal., Starting on Sat04/10/24 at 0037, For CIWA score 11 or greater. If both oral and intravenous CIWA medications ordered, use intravenous if unable to tolerate oral equivalent. Reassess CIWA one hour after each dose of medication and as needed. For IV doses dilute dose with 1ml NS. Or LORazepam (Ativan) tablet 3 mg (CANCELED)Jump to med 3 mg, Oral, Every 1 hour PRN, other, For alcohol withdrawal, Starting on Sat04/10/24 at 0037, For CIWA score 16 to 20. Reassess CIWA one hour after each dose of medication and as needed. Or LORazepam (Ativan) injection 3 mg (CANCELED) 3 mg, IntraVENous, Every 1 hour PRN, withdrawal, For alcohol withdrawal, Starting on Sat04/10/24 at 0037, For CIWA score 16 to 20. If both oral and intravenous CIWA medications ordered, use intravenous if unable to tolerate oral equivalent. Reassess CIWA one hour after each dose of medication and as needed. For IV doses dilute dose with 1ml NS. Or LORazepam (Ativan) tablet 4 mg (CANCELED) 4 mg, Oral, Every 1 hour PRN, other, For alcohol withdrawal, Starting on Sat04/10/24 at 0037, For CIWA score greater than 20. Reassess CIWA one hour after each dose of medication and as needed. Or LORazepam (Ativan) injection 4 mg (CANCELED) 4 mg, IntraVENous, Every 1 hour PRN, withdrawal, For alcohol withdrawal, Starting on Sat04/10/24 at 0037, For CIWA score greater than 20. If both oral and intravenous CIWA medications ordered, use intravenous if unable to tolerate oral equivalent. Reassess CIWA one hour after each dose of medication and as needed. For IV doses dilute dose with 1ml NS. Group 2: ondansetron ODT (Zofran-ODT) disintegrating tablet 4 mgJump to med 4 mg, Oral, Every 8 hours PRN, nausea, vomiting, Starting on Sat04/10/24 at 0037, 1st Line. If inadequate response within 60 minutes, proceed to next-line agent or contact provider if no further options ordered. Patient should allow tablet to dissolve on tongue. Do not remove from blister pack until just before administering. Or ondansetron (Zofran) injection 4 mgJump to med 4 mg, IntraVENous, Every 6 hours PRN, nausea, vomiting, Starting on Sat04/10/24 at 0037, 1st Line. Give IV if patient is unable to take orally. If inadequate response within 60 minutes, proceed to next-line agent or contact provider if no further options ordered. Scheduled Medication Order 05/08/2024 05/09/2024 05/10/2024 folic acid (Folvite) tablet 1 mg 1 mg, Oral, Daily, First dose on Sat05/08/24 at 0900 0842 (Given - Provider: Nanette De Santiago RN) 0920 (Given - Provider: Stephanie Schmitt, JAY) 0837 (Given - Provider: Stephanie Schmitt, JAY) gabapentin (Neurontin) capsule 600 mg 600 mg, Oral, 3 times daily, First dose on Sat05/08/24 at 0930 1018 (Given - Provider: Nanette De Santiago RN)1408 (Given - Provider: Nanette De Santiago RN)2006 (Given - Provider: Evelyn Abad RN) 0919 (Given - Provider: Stephanie Schmitt, JAY)1425 (Given - Provider: Neelam Cody RN)203 (Given - Provider: Corinne Navarrete RN) 0837 (Given - Provider: Stephanie Schmitt, JAY)1353 (Given - Provider: Stephanie Schmitt, JAY) naltrexone (Depade) tablet 50 mg 50 mg, Oral, Daily With Dinner, First dose on Sat05/10/24 at 1700 pantoprazole (ProtoNix) EC tablet 40 mg 40 mg, Oral, Daily, First dose on Sat05/08/24 at 0930, Do not crush, chew, or split. 1018 (Given - Provider: Nanette De Santiago RN) 0920 (Given - Provider: Stephanie Schmitt RN) 0837 (Given - Provider: Stephanie Schmitt, JAY) PHENobarbital tablet 32.4 mg 32.4 mg, Oral, Every 4 hours, First dose (after last modification) on 05/09/24 at 1600, OK to HOLD or DELAY for oversedation 1542 (Given - Provider: Stephanie Schmitt, JAY)2038 (Given - Provider: Corinne Navarrete RN) 0007 (Given - Provider: Corinne Navarrete RN)0415 (Given - Provider: Corinne Navarrete RN)0837 (Given - Provider: Stephanie Schmitt RN)1259 (Given - Provider: Stephanie Schmitt, JAY)1630 (Canceled Entry - Provider: Automatic Discharge Provider - Comment: Automatically canceled at discontinue of medication order) PHENobarbital tablet 64.8 mg (CANCELED) 64.8 mg, Oral, Every 4 hours, First dose (after last modification) on Sat05/08/24 at 1600, OK to HOLD or DELAY for oversedation 1637 (Given - Provider: Nanette De Santiago RN)2006 (Given - Provider: Evelyn Abad RN) 2 (Given - Provider: Evelyn Abad RN)0406 (Given - Provider: Evelyn Abad RN)0920 (Given - Provider: Stephanie Schmitt RN)1246 (Given - Provider: Stephanie Schmitt RN) PHENobarbital tablet 97.2 mg (CANCELED) 97.2 mg, Oral, Every 4 hours, First dose on Sat05/08/24 at 0400, OK to HOLD or DELAY for oversedation 0350 (Given - Provider: Evelyn Abad RN)0750 (Given - Provider: Nanette De Santiago RN)1227 (Given - Provider: Nanette De Santiago RN) therapeutic multivitamin-minerals (Theragran-M) tablet 1 tablet, Oral, Daily, First dose on Sat05/08/24 at 0900 0842 (Given - Provider: Nanette De Santiago RN) 0920 (Given - Provider: Stephanie Schmitt RN) 0837 (Given - Provider: Stephanie Schmitt RN) thiamine (Vitamin B1) tablet 100 mg (CANCELED) 100 mg, Oral, Daily, First dose on Sat05/08/24 at 0900 0842 (Given - Provider: Nanette De Santiago RN) thiamine (Vitamin B1) tablet 100 mg 100 mg, Oral, Every 6 hours, First dose (after last modification) on Sat05/08/24 at 1500 1437 (Given - Provider: Nanette De Santiago RN)2006 (Given - Provider: Evelyn Abad RN) 0406 (Given - Provider: Evelyn Abad RN)0920 (Given - Provider: Stephanie Schmitt RN)1425 (Given - Provider: Neelam Cody, JAY)2038 (Given - Provider: Corinne Navarrete, JAY) 0415 (Given - Provider: Corinne Navarrete RN)0837 (Given - Provider: Stephanie Schmitt RN)1500 (Not Given - Provider: Stephanie Schmitt RN - Reason: Other - Comment: discharge) PRN Medication Order 05/08/2024 05/09/2024 05/10/2024 acetaminophen (Tylenol) tablet 650 mg 650 mg, Oral, Every 6 hours PRN, mild pain (1-3), moderate pain (4-6), headaches, fever, severe pain (7-10), Starting on Sat05/07/24 at 2142 albuterol 108 (90 Base) MCG/ACT inhaler 2 puff 2 puff, Inhalation, Every 6 hours PRN, wheezing, shortness of breath, Starting on Sat05/08/24 at 0921 aluminum & magnesium hydroxide-simethicone (Mylanta) 200-200-20 MG/5ML oral suspension 10 mL 10 mL, Oral, 3 times daily PRN, indigestion, Starting on Sat05/07/24 at 2142 hydrOXYzine pamoate (Vistaril) capsule 50 mg 50 mg, Oral, Every 6 hours PRN, allergies, anxiety, Starting on Sat05/07/24 at 2142 0141 (Given - Provider: Evelyn Abad RN) loperamide (Imodium) capsule 2 mg 2 mg, Oral, 4 times daily PRN, diarrhea, Starting on Mounika 05/07/24 at 2142, After each loose stool LORazepam (Ativan) injection 2 mg 2 mg, IntraMUSCular, Once PRN, seizures, Starting on Mounika 05/07/24 at 2142, For 1 dose, Please notify flight control manager attending if this has to be utilized for a seizure. For IV doses dilute dose with 1ml NS. magnesium hydroxide (Milk of Magnesia) 400 MG/5ML suspension 30 mL 30 mL, Oral, 2 times daily PRN, constipation, Starting on Mounika 05/07/24 at 2142 nicotine polacrilex (Commit) lozenge 4 mg 4 mg, Mouth/Throat, Every 2 hour PRN, smoking cessation, Starting on Sat05/08/24 at 0149 0848 (Given - Provider: Nanette De Santiago RN) 1039 (Given - Provider: Stephanie Schmitt, JAY)1426 (Given - Provider: Neelam Cody RN - Comment: pt. requested)1650 (Given - Provider: Neelam Cody RN - Comment: pt. requested)2038 (Given - Provider: Corinne Navarrete, JAY) 0837 (Given - Provider: Stephanie Schmitt, JAY)1152 (Given - Provider: Neelam Cody RN - Comment: pt. requested)1259 (Given - Provider: Stephanie Schmitt, JAY) ondansetron ODT (Zofran-ODT) disintegrating tablet 4 mg 4 mg, Oral, Every 6 hours PRN, nausea, vomiting, Starting on Sat05/07/24 at 2142 0144 (Given - Provider: Evelyn Abad RN) traZODone (Desyrel) tablet 100 mg 100 mg, Oral, Nightly PRN, sleep, Starting on Sat05/07/24 at 2142 0141 (Given - Provider: Evelyn Abad, JAY) 2253 (Given - Provider: Corinne Navarrete RN) Scheduled Medication Order 06/02/2024 06/03/2024 06/04/2024 clobetasol (Temovate) 0.05 % cream Topical, 2 times daily, First dose on Sat06/03/24 at 0945 1032 (Given - Provider: Nanette De Santiago RN)2008 (Given - Provider: Evelyn Abad RN) 0900 (Not Given - Provider: Nicole Albrecht, JAY - Reason: Patient/family refused) cloNIDine (Catapres) tablet 0.1 mg (COMPLETED) 0.1 mg, Oral, Once, On Mounika 06/04/24 at 1015, For 1 dose, HOLD if SBP < 100 or DBP < 60 or HR < 50 1022 (Given - Provider: Nicole Albrecht, JAY - Comment: HR 102) folic acid (Folvite) tablet 1 mg 1 mg, Oral, Daily, First dose on Sat06/02/24 at 1810 1836 (Given - Provider: Helen Winter RN) 0921 (Given - Provider: Nanette De Santiago, JAY) 09 (Given - Provider: Nicole Albrecht RN) gabapentin (Neurontin) capsule 600 mg 600 mg, Oral, 3 times daily, First dose on Sat06/03/24 at 0945 1003 (Given - Provider: Nanette De Santiago RN)1350 (Given - Provider: Nanette De Santiago RN)2008 (Given - Provider: Evelyn Abad RN) 0911 (Given - Provider: Nicole Albrecht RN)1401 (Given - Provider: Nicole Albrecht RN) metoprolol succinate XL (Toprol-XL) 24 hr tablet 25 mg (COMPLETED) 25 mg, Oral, Once, On Sat06/04/24 at 1100, For 1 dose, Do not crush or chew. 1100 (Given - Provider: Nicole Albrecht RN) naltrexone (Depade) tablet 50 mg (COMPLETED) 50 mg, Oral, Once, On Sat06/04/24 at 1100, For 1 dose 1056 (Given - Provider: Nicole Albrecht RN) naltrexone ER (Vivitrol) injection 380 mg (COMPLETED) 380 mg, IntraMUSCular, Once, On Mounika 06/04/24 at 1200, For 1 dose, Follow Package Insert. Bring vial to room temperature over 1 hour. Reconstitute with 3.4ml of provided diluent. Shake well. Draw up and administer 4mL dose deep IM into gluteal muscle IMMEDIATELY. Do not give IV or subcutaneously. Provide patient with wallet card and medical ID bracelet kit sent up by Pharmacy [id number] (Given - Provider: Nicole Albrecht RN) PHENobarbital tablet 64.8 mg 64.8 mg, Oral, Every 6 hours, First dose on Sat06/03/24 at 0000, OK to HOLD or DELAY for oversedation 0007 (Given - Provider: Claudia Jin RN)0615 (Given - Provider: Claudia Jin RN)1155 (Given - Provider: Nanette De Santiago, JAY)1824 (Given - Provider: Nanette De Santiago, JAY)2306 (Given - Provider: Evelyn Abad RN) 0539 (Given - Provider: Evelyn Abad RN)1239 (Given - Provider: Nicole Albrecht, JAY) PHENobarbital tablet 97.2 mg (COMPLETED) 97.2 mg, Oral, Once, On Sat06/02/24 at 1810, For 1 dose 1836 (Given - Provider: Helen Winter, RN) thiamine (Vitamin B1) tablet 100 mg 100 mg, Oral, Daily, First dose on Sat06/02/24 at 1810 1836 (Given - Provider: Helen Winter RN) 0921 (Given - Provider: Nanette De Santiago RN) 0911 (Given - Provider: Nicole Albrecht, JAY) PRN Medication Order 06/02/2024 06/03/2024 06/04/2024 acetaminophen (Tylenol) tablet 650 mg 650 mg, Oral, Every 6 hours PRN, mild pain (1-3), moderate pain (4-6), headaches, fever, severe pain (7-10), Starting on Sat06/02/24 at 1926 1227 (Given - Provider: Nanette De Santiago RN)2008 (Given - Provider: Evelyn Abad RN) albuterol 108 (90 Base) MCG/ACT inhaler 2 puff 2 puff, Inhalation, Every 6 hours PRN, wheezing, shortness of breath, Starting on Sat06/03/24 at 0935 1703 (Given - Provider: Nanette De Santiago RN) 0553 (Given - Provider: Evelyn Abad, JAY)1240 (Given - Provider: Nicole Albrecht, JAY) aluminum & magnesium hydroxide-simethicone (Mylanta) 200-200-20 MG/5ML oral suspension 10 mL 10 mL, Oral, 3 times daily PRN, indigestion, Starting on Sat06/02/24 at 192 hydrALAZINE (Apresoline) tablet 10 mg 10 mg, Oral, 3 times daily PRN, Hypertension (give if SBP > 180 and/or DBP > 120), Starting on Sat06/02/24 at 1925 hydrOXYzine pamoate (Vistaril) capsule 50 mg 50 mg, Oral, Every 6 hours PRN, allergies, anxiety, Starting on Sat06/02/24 at 192 loperamide (Imodium) capsule 2 mg 2 mg, Oral, 4 times daily PRN, diarrhea, Starting on Sat06/02/24 at 192, After each loose stool LORazepam (Ativan) injection 2 mg 2 mg, IntraMUSCular, Once PRN, seizures, Starting on Sat06/02/24 at 192, For 1 dose, Please notify flight control manager attending if this has to be utilized for a seizure. For IV doses dilute dose with 1ml NS. LORazepam (Ativan) tablet 1 mg (CANCELED)(Linked Group 1) 1 mg, Oral, Every 1 hour PRN, other, For alcohol withdrawal, Starting on Sat06/02/24 at 1808, For CIWA score 8 to 10. Reassess CIWA one hour after each dose of medication and as needed. 183 (Given - Provider: Helen Winter RN) magnesium hydroxide (Milk of Magnesia) 400 MG/5ML suspension 30 mL 30 mL, Oral, 2 times daily PRN, constipation, Starting on Sat06/02/24 at 192 nicotine polacrilex (Commit) lozenge 4 mg 4 mg, Mouth/Throat, Every 2 hour PRN, smoking cessation, Starting on Sat06/03/24 at 0000 0006 (Given - Provider: Claudia Jin RN)1337 (Given - Provider: Nanette De Santiago RN)1702 (Given - Provider: Nanette De Santiago, JAY)2009 (Given - Provider: Evelyn Abad, JAY)2309 (Given - Provider: Evelyn Abad, JAY) 0645 (Given - Provider: Evelyn Abad RN)1015 (Given - Provider: Nicole Albrecht RN - Comment: Nicotine cravings)1257 (Given - Provider: Nicole Albrecht RN - Comment: nicotine cravings) ondansetron ODT (Zofran-ODT) disintegrating tablet 4 mg 4 mg, Oral, Every 6 hours PRN, nausea, vomiting, Starting on Sat06/02/24 at 192 traZODone (Desyrel) tablet 100 mg 100 mg, Oral, Nightly PRN, sleep, Starting on Sat06/02/24 at 1927 0007 (Given - Provider: Claudia Jin RN)2306 (Given - Provider: Evelyn Abad RN) Linked Groups Order Group 1: LORazepam (Ativan) tablet 1 mg (CANCELED)Jump to med 1 mg, Oral, Every 1 hour PRN, other, For alcohol withdrawal, Starting on Sat06/02/24 at 1808, For CIWA score 8 to 10. Reassess CIWA one hour after each dose of medication and as needed. Or LORazepam (Ativan) injection 1 mg (CANCELED) 1 mg, IntraVENous, Every 1 hour PRN, withdrawal, For alcohol withdrawal, Starting on Sat06/02/24 at 1808, For CIWA score 8 to 10. If both oral and intravenous CIWA medications ordered, use intravenous if unable to tolerate oral equivalent. Reassess CIWA one hour after each dose of medication and as needed. For IV doses dilute dose with 1ml NS. Or LORazepam (Ativan) tablet 2 mg (CANCELED) 2 mg, Oral, Every 1 hour PRN, other, For alcohol withdrawal, Starting on Sat06/02/24 at 1808, For CIWA score 11 to 15. Reassess CIWA one hour after each dose of medication and as needed. Or LORazepam (Ativan) injection 2 mg (CANCELED) 2 mg, IntraVENous, Every 1 hour PRN, withdrawal, For alcohol withdrawal., Starting on Sat06/02/24 at 1808, For CIWA score 11 to 15. If both oral and intravenous CIWA medications ordered, use intravenous if unable to tolerate oral equivalent. Reassess CIWA one hour after each dose of medication and as needed. For IV doses dilute dose with 1ml NS. Or LORazepam (Ativan) tablet 3 mg (CANCELED) 3 mg, Oral, Every 1 hour PRN, other, For alcohol withdrawal, Starting on Sat06/02/24 at 1808, For CIWA score 16 to 20. Reassess CIWA one hour after each dose of medication and as needed. Or LORazepam (Ativan) injection 3 mg (CANCELED) 3 mg, IntraVENous, Every 1 hour PRN, withdrawal, For alcohol withdrawal, Starting on Sat06/02/24 at 1808, For CIWA score 16 to 20. If both oral and intravenous CIWA medications ordered, use intravenous if unable to tolerate oral equivalent. Reassess CIWA one hour after each dose of medication and as needed. For IV doses dilute dose with 1ml NS. Or LORazepam (Ativan) tablet 4 mg (CANCELED) 4 mg, Oral, Every 1 hour PRN, other, For alcohol withdrawal, Starting on Sat06/02/24 at 1808, For CIWA score greater than 20. Reassess CIWA one hour after each dose of medication and as needed. Or LORazepam (Ativan) injection 4 mg (CANCELED) 4 mg, IntraVENous, Every 1 hour PRN, withdrawal, For alcohol withdrawal, Starting on Sat06/02/24 at 1808, For CIWA score greater than 20. If both oral and intravenous CIWA medications ordered, use intravenous if unable to tolerate oral equivalent. Reassess CIWA one hour after each dose of medication and as needed. For IV doses dilute dose with 1ml NS. Scheduled Medication Order 08/04/2024 08/05/2024 08/06/2024 acyclovir (Zovirax) capsule 800 mg (CANCELED) 800 mg, Oral, 5 times daily, First dose (after last reorder) on Sat08/04/24 at 0900, For 7 days, Coverage: Varicella zoster, Infection Site: Mucocutaneous 0944 (Given - Provider: Lauren Irby RN)1400 (Given - Provider: Lauren Irby RN)1808 (Given - Provider: Lauren Irby RN)2318 (Given - Provider: Evelyn Abad RN) 0602 (Given - Provider: Evelyn Abad RN)1105 (Given - Provider: Roma White LPN)1425 (Given - Provider: Roma White LPN)1846 (Given - Provider: Roma White LPN) baclofen (Lioresal) tablet 10 mg 10 mg, Oral, 3 times daily, First dose on Sat08/04/24 at 1400 1352 (Given - Provider: Lauren Irby RN)2031 (Given - Provider: Evelyn Abad RN) 0819 (Given - Provider: Roma White LPN)1343 (Given - Provider: Roma White LPN)2013 (Given - Provider: Evelyn Abad RN) 0826 (Given - Provider: Neelam Cody RN)134 (Given - Provider: Neelam Cody RN) diazePAM (Valium) tablet 10 mg (CANCELED) 10 mg, Oral, Every 6 hours, First dose on Sat08/03/24 at 1930, OK to HOLD if overly sedated 0114 (Given - Provider: Kristina Hampton RN)0630 (Given - Provider: Kristina Hampton RN)1352 (Given - Provider: Lauren Irby RN)1831 (Given - Provider: Lauren Irby RN) 0100 (Given - Provider: Evelyn Abad RN)0819 (Given - Provider: Roma White LPN) diazePAM (Valium) tablet 5 mg 5 mg, Oral, Every 6 hours, First dose (after last modification) on Sat08/05/24 at 1330, OK to HOLD if overly sedated 1242 (Given - Provider: Roma White LPN)1846 (Given - Provider: Roma White LPN) 010 (Given - Provider: Evelyn Abad RN)0826 (Given - Provider: Neelam Cody RN)134 (Given - Provider: Neelam Cody RN) folic acid (Folvite) tablet 1 mg 1 mg, Oral, Daily, First dose on Sat08/03/24 at 1910 0829 (Given - Provider: Lauren Irby RN) 0819 (Given - Provider: Roma White LPN) 0826 (Given - Provider: Neelam Cody RN) gabapentin (Neurontin) capsule 600 mg (CANCELED) 600 mg, Oral, 3 times daily, First dose on Sat08/03/24 at 2100 0829 (Given - Provider: Lauren Ibry RN) gabapentin (Neurontin) capsule 800 mg 800 mg, Oral, 3 times daily, First dose (after last modification) on Sat08/04/24 at 1400 1352 (Given - Provider: Lauren Irby RN)203 (Given - Provider: Evelyn Abad RN) 0819 (Given - Provider: Roma White LPN)134 (Given - Provider: Roma White LPN)2013 (Given - Provider: Evelyn Abad RN) 08 (Given - Provider: Neelam Cody RN)1344 (Given - Provider: Neelam Cody RN) Lidocaine 4 % patch 1 patch 1 patch, TransDERmal, Administer over 12 Hours, Daily, First dose on Sat08/03/24 at 1720, Apply patch to right rib rash. Patch may remain in place for up to 12 hours in any 24 hour period. 0525 (Medication Removed - Provider: Kristina Hampton RN)0900 (Not Given - Provider: Lauren Irby RN - Reason: Patient/family refused) 0820 (Medication Applied - Provider: Roma White LPN - Comment: applied to R rib)2013 (Medication Removed - Provider: Evelyn Abad RN) 0829 (Medication Applied - Provider: Neelam Cody RN - Comment: to abdomen)1551 (Medication Removed - Provider: Neelam Cody RN - Comment: Time automatically adjusted from order being discontinued) pantoprazole (ProtoNix) EC tablet 40 mg 40 mg, Oral, Daily, First dose on Sat08/03/24 at 1910, Do not crush, chew, or split. 0829 (Given - Provider: Lauren Irby RN) 0819 (Given - Provider: Rmoa White LPN) 0826 (Given - Provider: Neelam Cody RN) thiamine (Vitamin B1) tablet 100 mg 100 mg, Oral, Daily, First dose on Sat08/03/24 at 1910 0829 (Given - Provider: Lauren Irby RN) 0819 (Given - Provider: Roma White LPN) 0826 (Given - Provider: Neelam Cody RN) valACYclovir (Valtrex) tablet 1,000 mg 1,000 mg, Oral, 3 times daily, First dose on Sat08/05/24 at 1400, For 6 days, Coverage: Varicella zoster, Infection Site: Other, Specify: right flank 0835 (Given - Provider: Neelam Cody RN)1344 (Given - Provider: Neelam Cody RN) PRN Medication Order 08/04/2024 08/05/2024 08/06/2024 albuterol 108 (90 Base) MCG/ACT inhaler 2 puff 2 puff, Inhalation, Every 6 hours PRN, wheezing, shortness of breath, Starting on Sat08/03/24 at 1901, Administer using an inhaler spacer. aluminum & magnesium hydroxide-simethicone (Mylanta) 200-200-20 MG/5ML oral suspension 10 mL 10 mL, Oral, 3 times daily PRN, indigestion, Starting on Sat08/03/24 at 1903 cloNIDine (Catapres) tablet 0.1 mg 0.1 mg, Oral, Every 6 hours PRN, withdrawal, Starting on Sat08/03/24 at 1905, Hold for a systolic bp og 90 or below 0118 (Given - Provider: Kristina Hampton RN) diazePAM (Valium) tablet 10 mg 10 mg, Oral, Every 6 hours PRN, alcohol withdrawal (ok to give in between scheduled doses if CIWA > 6), Starting on Sat08/04/24 at 0923 dicyclomine (Bentyl) capsule 10 mg 10 mg, Oral, 4 times daily PRN, gi cramping, Starting on Sat08/03/24 at 1903 hydrOXYzine pamoate (Vistaril) capsule 50 mg 50 mg, Oral, Every 6 hours PRN, anxiety, itching, Starting on Sat08/04/24 at 0845 ibuprofen tablet 400 mg 400 mg, Oral, Every 6 hours PRN, pain 1-10, Starting on Sat08/03/24 at 1903 0114 (Given - Provider: Kristina Hampton RN) 0100 (Given - Provider: Evelyn Abad RN)1341 (Given - Provider: Roma White LPN) 0629 (Given - Provider: Evelyn Abad RN) naloxone (Narcan) injection 0.4 mg 0.4 mg, IntraVENous, Every 5 min PRN, opioid reversal, respiratory depression, Starting on Sat08/04/24 at 0840, +++ For RR <10, pinpoint pupils, over sedation for opioid reversal - MUST notify flight control manager provider immediately after first dose, may give IM or SQ if no IV access +++ nicotine polacrilex (Commit) lozenge 4 mg 4 mg, Mouth/Throat, Every 2 hour PRN, smoking cessation, Starting on Sat08/04/24 at 0128 0210 (Given - Provider: Kristina Hampton RN)1838 (Given - Provider: Lauren Irby RN)203 (Given - Provider: Evelyn Abad RN) 1242 (Given - Provider: Roma White LPN)1609 (Given - Provider: Roma White LPN)2240 (Given - Provider: Evelyn Abad RN) 0642 (Given - Provider: Evelyn Abad RN)0845 (Given - Provider: Neelam Cody RN - Comment: pt. requested)1244 (Given - Provider: Neelam Cody RN - Comment: pt. requested) ondansetron (Zofran) injection 4 mg(Linked Group 1) 4 mg, IntraVENous, Every 6 hours PRN, nausea, vomiting, Starting on Sat08/03/24 at 1903, 1st Line. Give IV if patient is unable to take orally. If inadequate response within 60 minutes, proceed to next-line agent or contact provider if no further options ordered. 1735 (See Alternative - Provider: Roma White LPN) ondansetron ODT (Zofran-ODT) disintegrating tablet 4 mg(Linked Group 1) 4 mg, Oral, Every 8 hours PRN, nausea, vomiting, Starting on Sat08/03/24 at 1903, 1st Line. If inadequate response within 60 minutes, proceed to next-line agent or contact provider if no further options ordered. Patient should allow tablet to dissolve on tongue. Do not remove from blister pack until just before administering. 1735 (Given - Provider: Roma White LPN) oxyCODONE (Roxicodone) immediate release tablet 5 mg 5 mg, Oral, Every 6 hours PRN, severe pain (7-10), Starting on Sat08/04/24 at 0838, For 3 days, 2nd line for pain 1810 (Given - Provider: Lauren Irby RN) 0607 (Given - Provider: Evelyn Abad RN)1609 (Given - Provider: Roma White LPN) 1045 (Given - Provider: Neelam Cody RN - Comment: given for shingles pain) traZODone (Desyrel) tablet 50 mg 50 mg, Oral, Nightly PRN, sleep, Starting on Sat08/03/24 at 1903 0114 (Given - Provider: Kristina Hampton RN) 0059 (Given - Provider: Evelyn Abad RN) 0004 (Given - Provider: Evelyn Abad RN) Linked Groups Order Group 1: ondansetron ODT (Zofran-ODT) disintegrating tablet 4 mgJump to med 4 mg, Oral, Every 8 hours PRN, nausea, vomiting, Starting on 08/03/24 at 1903, 1st Line. If inadequate response within 60 minutes, proceed to next-line agent or contact provider if no further options ordered. Patient should allow tablet to dissolve on tongue. Do not remove from blister pack until just before administering. Or ondansetron (Zofran) injection 4 mgJump to med 4 mg, IntraVENous, Every 6 hours PRN, nausea, vomiting, Starting on 08/03/24 at 1903, 1st Line. Give IV if patient is unable to take orally. If inadequate response within 60 minutes, proceed to next-line agent or contact provider if no further options ordered. FOR RECORDS PERTAINING TO PATIENTS WHO ARE OR HAVE BEEN ENROLLED IN A CHEMICAL DEPENDENCY/SUBSTANCEABUSE PROGRAM, SOME INFORMATION MAY BE OMITTED. This clinical summary was aggregated from multiple sources. Caution should be exercised in using it in the provision of clinical care. This summary normalizes information from multiple sources, and as a consequence, information in this document may materially change the coding, format and clinical context of patient data. In addition, data may be omitted in some cases. CLINICAL DECISIONS SHOULD BE BASED ON THE PRIMARY CLINICAL RECORDS. [facility]. provides no warranty or guarantee of the accuracy or completeness of information in this document.
--- NOTE | 2024-09-17 19:45 | HP.PCM.HOS_ITS ---
[facility] - General General Date of Admission: 09/17/24 Date of Service: 09/17/24 Chief Complaint: Requesting EtOH Detox. HPI Narrative MARIA DE JESUS LAW, is a 58 M with a past medical history of EtOH abuse; with patient admitting to drinking ~6-9 tall boy beers daily with his last drink ~20 minutes prior to arrival, history of EtOH hepatitis, tobacco abuse; with subsequent COPD, obesity; with BMI of 30.8 this admission, BPH, GERD; on omeprazole OA; with chronic back pain plus neuropathy on gabapentin 3 times daily and as needed cyclobenzaprine and history of admission here from July 17, 2017 to July 20, 2017 for inpatient treatment of acute alcohol withdrawal and mild alcoholic hepatitis who presents to [facility] once again requesting alcohol detoxification. Mr. Law reports he recently went for alcohol detox at an outside facility in May of this year with sobriety lasting ~1 month before relapsing into severe alcohol abuse. He denies history of alcohol withdrawal seizures and his informed the ER physician that he had been prescribed B vitamins and an antacid but he does not take them as prescribed. There is no report of other illicit drug use. He additionally denies associated fever, chills, nausea, vomiting, diarrhea, constipation, chest pain, palpitations, heart racing, shortness of breath, headache or rash. In the ER he was noted to have an elevated DIEGO of 368 mg/dL present on admission consistent with Acute EtOH Intoxication in the setting of Chronic EtOH Abuse and he was then admitted to the general medical floor for ongoing care for stay that is expected to extend beyond 2 midnights. [facility] Medical History EtOH dependence Home Medications ?Medication ?Instructions ?Recorded ?Last Taken ?Type cyclobenzaprine 10 mg tablet 10 mg PO QHS PRN PRN musc le spasm 09/17/24 Unknown History gabapentin 300 mg capsule 600 mg PO TID 09/17/2409/17 History melatonin 5 mg tablet 5 mg PO QHS 09/17/24 5 History omeprazole 20 mg tablet,delayed 20 mg PO DAILY 5 09/16/24 History release Allergy/AdvReac Type Severity Reaction Status Date / Time bee pollen Allergy Anaphylaxis Verified 09/17/24 18:30 nickel AdvReac Rash Verified 09/17/24 18:30 tramadol AdvReac Nausea Verified 09/17/24 18:30 Social History Smoking Status: Current every day smoker tobacco type: cigarettes ROS ROS Narrative Review of Systems: Constitutional: Patient denies fever or chills. Eyes: Patient denies changes in vision or discharge from eyes. ENT: Patient denies runny nose, sore throat or ear pain. Resp: Patient denies shortness of breath or cough. CV: Patient denies chest pain, palpitations, heart racing or lower extremity edema. GI: Patient denies abdominal pain, nausea, vomiting, diarrhea or constipation. : Patient denies dysuria or hematuria. MSK: Patient admits to chronic back pain with neuropathy as per HPI. Skin: Patient denies rash, abscess, wounds or jaundice. Psych: Patient denies symptoms of uncontrolled depression or anxiety. Neuro: Patient denies headache, paresthesias or focal neurologic deficits. Allergy: Patient denies lip swelling, tongue swelling or urticaria. Hematology: Patient denies easy bleeding or easy bruisability. Endocrinology: Patient denies polyuria, polydipsia, polyphagia or heat/cold intolerance. 14 point ROS otherwise negative save for positives noted above in HPI. Vital Signs Vital Signs Vital Signs: 09/17/24 18:30 Temperature 98.3 F Temperature Source Oral Pulse Rate 103 H Respiratory Rate 18 Blood Pressure 121/80 H Blood Pressure Mean 93 Pulse Ox 95 Oxygen Delivery Method Room Air Weight Weight: 221 lb Body Mass Index (BMI) 30.8 Physical Exam Const alert, oriented x3 and no apparent distress Constitutional Narrative: Patient appears intoxicated. General Appearance: cooperative HEENT normocephalic, head/scalp atraumatic, hearing grossly normal bilaterally and moist oral mucous membranes Eyes PERRL and EOMs intact bilaterally Neck no lymphadenopathy and supple Resp normal respiratory effort, no retractions, no use of accessory muscles and clear to auscultation bilaterally Cardio regular rate and regular rhythm GI normal to inspection, nondistended, normoactive bowel sounds, soft to palpation, non-tender and non-distended GI Narrative: Obese. Extremity normal to inspection, full ROM and no clubbing, cyanosis or edema Skin Skin Narrative: Patient has no evidence of rash, abscess, wounds or jaundice. Neuro oriented x3, CN's II-XII intact bilaterally, moves all extremities and no focal motor deficits Neuro Narrative: Patient appears intoxicated. Sensorium / Orientation: awake, alert, oriented to person, oriented to place and oriented to time Speech: speech normal Psych affect normal Results Medical Records Data Attestation: I reviewed the patient's medical records Lab / Micro Data Attestation: I reviewed the patient's lab results. 09/17/24 18:49 09/17/24 18:49 Labs: Laboratory Results - last 24 hr 09/17/24 18:49: WBC 7.1, RBC 5.11, Hgb 17.1 H, Hct 49.4, MCV 96.7 H, MCH 33.5 H, MCHC 34.6, RDW Std Deviation 48.2 H, RDW Coeff of [place] 13.4, Plt Count 281, MPV 8.2, Immature Gran % (Auto) 0.300, Neut % (Auto) 53.0, Lymph % (Auto) 31.7, [place] % (Auto) 11.8 H, Eos % (Auto) 2.5, Baso % (Auto) 0.7, Absolute Neuts (auto) 3.8, Absolute Lymphs (auto) 2.26, Nucleated RBC % 0, Sodium 131 L, Potassium 4.5, C hloride 94 L, Carbon Dioxide 22.2, Anion Gap 14, BUN 4, Creatinine 0.60 L, Estim Creat Clear Calc 165.82, Est GFR (MDRD) Non-Af 113, BUN/Creatinine Ratio 6.5 L, Glucose 176 H, Calcium 8.7, Total Bilirubin 0.33, AST 63 H, ALT 64 H, Alkaline Phosphatase 116, Total Protein 7.4, Albumin 4.1, Globulin 3.3, Albumin/Globulin Ratio 1.3, Urine Opiates Screen NEGATIVE, U Buprenorphine Qual NEGATIVE, Ur Oxycodone Screen NEGATIVE, Urine Methadone Screen NEGATIVE, Urine Fentanyl Screen NEGATIVE, Ur Barbiturates Screen NEGATIVE, Ur Phencyclidine Scrn NEGATIVE, Ur Amphetamines Screen NEGATIVE, U Benzodiazepines Scrn NEGATIVE, Urine Cocaine Screen NEGATIVE, U Cannabinoids Screen NEGATIVE, Ethyl Alcohol 368.0 H* Assessment & Plan Assessment/Plan (1) Acute alcohol intoxication: QUALIFIERS: Complication of substance-induced condition: u ncomplicated Qualified Code(s): F10.920 - Alcohol use, unspecified with intoxication, uncomplicated (2) Alcohol abuse: (3) Alcoholic hepatitis: QUALIFIERS: Ascites presence: without ascites Qualified Code(s): K70.10 - Alcoholic hepatitis without ascites (4) Desire for detoxification: (5) Tobacco dependence: (6) COPD (chronic obstructive pulmonary disease): QUALIFIERS: COPD type: unspecified COPD Qualified Code(s): J44.9 - Chronic obstructive pulmonary disease, unspecified (7) Obesity (BMI 30.0-34.9): PLAN: Plan 1. Elevated DIEGO of 368 mg/dL present on admission consistent with Acute EtOH Intoxication in the setting of Chronic EtOH Abuse with the patient requesting EtOH detox - Admit to general medical floor under alcohol withdrawal protocol primarily consisting of phenobarbital taper. EtOH cessation will be strongly encouraged. Give ibuprofen as needed pain or fever. Give ondansetron as needed for nausea and vomiting. 2. History of admission here from July 17, 2017 to July 20, 2017 for inpatient treatment of acute alcohol withdrawal and mild alcoholic hepatitis complicating #1 - Noted developing pattern of serial readmission. 3. History of EtOH hepatitis compounding #1 & #2 - Noted with AST of 63U/L and ALT of 64U/L with alkaline phosphatase of 116 mg/dL present on admission. 4. Tobacco abuse; with subsequent COPD adding to the medical complexity of #1 - #3 - Stable with no signs of acute flare at this time. Continue as needed nebulizers. Tobacco Cessation will be strongly encouraged with nicotine patch offered to control cravings. 5. Obesity; with BMI of 30.8 this admission adding to the burden of disease outlined from #1 - #4 - Weight loss will be recommended. Check TSH. This complicates case may have recovery. 6. BPH - Stable. 7. GERD; on omeprazole - Maintain PPI. 8. OA; with chronic back pain plus neuropathy on gabapentin 3 times daily and as needed cyclobenzaprine - Current therapy to continue in addition to as needed ibuprofen as outlined in #1. 9. DVT prophylaxis - Enoxaparin 40 mg sq daily. Total time: Approximately (but not less than) 75 minutes. Charges/Coding Visit Charges Inpatient E&M: 93411 Init Hosp L3
--- OUTSIDE RECORDS SUMMARY | 2024-09-17 20:29 | XMS RPT_ITS | CCD ---
Author Organization [facility] [place] [facility] Care Team Providers Care Test Man Name Role Phone [place], [place] Unavailable Unavailable Kittoe, Joon Unavailable Unavailable Estella [...] Unavailable Unavailable CECI BERNARD Unavailable Unavailable Jeremy, [place] Unavailable Unavailable Ashelfah, Ghasem Unavailable Unavailable Lynda [...] (1 source) bee pollen Drug Allergy 8 [facility] Repository (1 source) nickel Drug Allergy 8 RASH [facility] Repository (1 source) traMADol Drug Allergy 8 [facility] Repository (20 sources) bee venom Propensity to adverse reactions to drug 5 Swelling [place], [place] (11 sources) Honey bee venom Propensity to adverse reactions to drug 5 Swelling [facility] [place] (20 sources) nickel sulfate Drug Allergy 5 Rash [place], [place] (20 sources) traMADol Drug Allergy 5 Nausea And Vomiting [place] (7 sources) Other Propensity to adverse reactions 5 Rash [place] (20 sources) Honey bee venom Propensity to adverse reactions 5 Swelling [facility] NEGATED: Highlighted row has been ruled [...] dose, Coverage: Varicella zoster, Infection Site: Mucocutaneous [id number] 200 actuat albuter ol 0.09 mg/actuat metered [...] at 1926, For 1 dose, Please notify institutional custodian attending if this has to be utilized for a seizure. For IV doses dilute dose with 1ml NS. Start: 05-07-2024 End: 05-10-2024 inject 1 mL by intramuscular injection once as needed 2 mg, IntraMUSCular, Once PRN, seizures, Starting on Mounika 05/07/24 at 2142, For 1 dose, Please notify institutional custodian attending if this has to be utilized [...] Start: 08-26-2020 take 1 capsule by mo [facility] once daily before breakfast [...] Oral, EVERY 4 HOURS, First dose on [facility] 06/09/20 at 1300 OK to [...] (Luminal) injection 65 mg polyethylene glycol 3350 [id number] mg powder for oral solution (10 sources) [...] Reference Range Facility [id number] [address] [facility] 36on 08-14-[address] [facility] Progress Noteon 08-14-[address] [facility] Progress Noteon 08-13-2024 Progress Note Missed Session Unexcused Pt did not call or show for Scheduled Assessment on this date. [facility] 36on 08-10-[address] [facility] [address] [facility] [address] [facility] [address] [facility] ED Nursing Noteon 08-10-2024 ED Nursing Note Recently diagnosed w ith shingles and is here for increasing pain to area on abdomen. Normal [facility] ED Provider Noteon ED Provider Note [facility] 36on 08-07-[address] [facility] 30on 08-06-[address] [facility] [id number] 08-06-2024 [id number] Social work consult placed for patient. None of the 5 areas of S NAHOMY noted at current time. Social work consult cleared [facility] [id number] [facility] COMPREHENSIVE METABOLIC PANE Arnulfo 08-06-2024 Albumin [Mass/Vol] 3.3 g/dL Low 3.5-5.0 [facility] Comment on above: Performed By: #### L [id number] ####Marketing Project Manager: CECI DUPREE ([phone])[facility] ([address] ALP [Catalytic activity/Vol] 96 U/L Normal 40-150 [facility] Comment on above: Performed By: #### L [id number] ####Marketing Project Manager: CECI DUPREE ([phone])[facility] ([facility])[address] [place] [address] ALT [Catalytic activity/Vol] 28 U/L Normal <40 [facility] Comment on above: Performed By: #### L [id number] ####Marketing Project Manager: CECI DUPREE ([phone])[facility] ([facility])[address] [place] [address] Anion gap [Moles/Vol] 7 mmol/L Normal 3-13 [facility] Comment on above: Performed By: #### L [id number] ####Marketing Project Manager: CECI DUPREE ([id number])[facility] ([facility])[address] [place] [address] AST [Catalytic activity/Vol] 38 U/L High <34 [facility] Comment on above: Performed By: #### L AB17 ####Marketing Project Manager: CECI DUPREE ([phone])[facility] ([facility])[address] [place] [address] Bilirubin [Mass/Vol] 0.5 mg/dL Normal <1.2 [facility] Comment on above: Performed By: #### L [id number] ####Marketing Project Manager: CECI DUPREE ([phone])[facility] ([facility])[address] [place] [address] Calcium [Mass/Vol] 8.8 mg/dL Normal 8.4-10.2 [facility] Comment on above: Performed By: #### L [id number] ####Marketing Project Manager: CECI DUPREE ([phone])[facility] ([facility])[address] [place] [address] [place] Chloride [Moles/Vol] 100 mmol/L Normal 98-107 [facility] Comment on above: Performed By: #### L [id number] ####Marketing Project Manager: CECI DUPREE ([phone])[facility] ([facility])[address] [place] [address] CO2 [Moles/Vol] 31 mmol/L High 22-29 [facility] Comment on above: Performed By: #### L [id number] ####Marketing Project Manager: CECI DUPREE ([phone])[facility])[address] [place] [address] Creatinine [Mass/Vol] 0.75 mg/dL Normal 0.72-1.25 [facility] Comment on above: Performed By: #### L [id number] ####Marketing Project Manager: CECI DUPREE ([phone])[facility] ([facility])[address] [place] [address] GLOMERULAR FILTRATION RATE ML/MIN/1.73 SQ M.PREDICTED >90.0 Normal >60.0 [facility] Comment on above: Result Comment: Calc ulation based on the Chronic Kidney Disease Epidemiology Collaboration (CKD-EPI) equation refit without adjustment for race Performed By: #### L [id number] ####Marketing Project Manager: CECI DUPREE ([phone])[facility] ([facility])[address] [place] [address] [place] Glucose [Mass/Vol] 111 mg/dL High 74-100 [facility] Comment on above: Performed By: #### L [id number] ####Marketing Project Manager: CECI DUPREE ([phone])[facility] ([facility])[address] [place] [address] [place] Potassium [Moles/Vol] 4.1 mmol/L Normal 3.5-5.1 [facility] Comment on above: Result Comment: [facility] potassium values may be up to 0.5 mmol/L lower than serum values. Performed By: #### L [id number] ####Marketing Project Manager: CECI DUPREE ([phone])[facility] ([facility])[address] [place] [address] [place] Protein [Mass/Vol] 6.5 g/dL Normal 6.4-8.3 [facility] Comment on above: Performed By: #### L [id number] ####Marketing Project Manager: CECI DUPREE ([phone])[facility] ([facility])[address] [place] [address] Sodium [Moles/Vol] 138 mmol/L Normal 136-145 [facility] Comment on above: Performed By: #### L AB17 ####Marketing Project Manager: CECI DUPREE ([phone])[facility] ([facility])[address] [place] [address] Urea nitrogen [Mass/Vol] 5 mg/dL Low 9-23 [facility] Comment on above: Performed By: #### L [id number] ####Marketing Project Manager: CECI DUPREE ([phone])[facility] ([facility])[address] [place] [address] Comprehensive metabolic 1998 panelon 08-06-2024 Albumin [Mass/Vol] 3.3 g/dL Low 3.5 - 5.0 g/dL [facility] ALP [Catalytic activity/Vol] 96 U/L 40 - 150 U/L [facility] ALT [Catalytic activity/Vol] 28 U/L NINF - 40 U/L [facility] Anion gap [Moles/Vol] 7 mmol/L 3 - 13 mmol/L [facility] AST [Catalytic activity/Vol] 38 U/L High NINF - 34 U/L [facility] Bilirubin [Mass/Vol] 0.5 mg/dL [facility] - 1.2 mg/dL [facility] Calcium [Mass/Vol] 8.8 mg/dL 8.4 - 10. 2 mg/dL [facility] Chloride [Moles/Vol] 100 mmol/L 98 - 10 7 mmol/L [facility] CO2 [Moles/Vol] 31 mmol/L High 22 - 29 mmol/L [facility] Creatinine [Mass/Vol] 0.75 mg/dL 0.72 - 1.25 mg/dL [facility] GFR/1.73 sq M.predicted (S/P/Bld) [Vol rate/Area] - PINF [facility] Comment on above: Calculation based on the Chronic Kidney Disease Epidemiology Collaboration (CKD-EPI) equation refit without adjustment for race Glucose [Mass/Vol] 111 mg/dL High 74 - 100 mg/dL [facility] Interpretation and review of laboratory results Abnormal [facility] Potassium [Moles/Vol] 4.1 mmol/L 3.5 - 5.1 mmol/L [facility] Comment on above: Plasma potassium juan ues may be up to 0.5 mmol/L lower than serum values. Protein [Mass/Vol] 6.5 g/dL 6.4 - 8.3 g/dL [facility] Sodium [Moles/Vol] 138 mmol/L 136 - 145 mmol/L [facility] Urea nitrogen [Mass/Vol] 5 mg/dL Low 9 - 23 mg/dL [facility] Nursing Noteon 08-06-2024 Nursing Note Normal [facility] Nursing Note 2 attempts done for blood draw. Unable to retrieve blood. 2nd nurse to attempt. Normal [facility] Nursing Note Patient is up and [facility] madeleine, seen in group room. Pt is cooperative and med compliant. Pt denies SI/HI/AVH. Pt encouraged to notify staff for any questions and concerns. Normal [facility] Progress Noteon 08-06-2024 Progress Note Normal [facility] 30on 08-05-2024 30 Normal [facility] 94on 08-05-2024 94 Normal [facility] Laboratory - Chemistry and C hemistry - challengeOrdered By: Deven Stokes on 08-05-2024 Transferrin.carbohydrat e deficient/Total transferrin [Mass fraction] 7.5 % High NINF - 1.4 % [facility] Work Phone: Comment on above: Normal:0-1.3% Inconclusive: 1.4-1.6% Elevated: greater than or equal to 1.7% Performed via Capillary Electrophoresis Nursing Noteon 08-05-2024 Nursing Note Normal [facility] Nursing Note Normal [facility] Nursing Note Normal [facility] Progress Noteon 08-05-2024 Progress Note Normal [facility] Progress Note Normal [facility] Progress Note Nutrition rescreen completed. Patient assigned a level 1. Normal [facility] Transferrin.carbohydrate def icient/Total transferrin [Mass fraction]Ordered By: Deven Stokes on 08-05-2024 Interpretation and review of laboratory results Abnormal [facility] Work Phone: [facility] [employer] Work Phone: 30on 08-04-2024 30 Care plan reviewed [facility] [id number] 08-04-2024 [id number] Patient scheduled fo r [facility] intake assessment on 08/13/2024 at 1:30 PM. All information included in patient's discharge paperwork. [facility] [id number] Patient reports plan s to engage in [place] [facility]. Declining residential as an option at current time. HAM STRINGER will assist with scheduling patient intake appointment. [facility] [id number] [facility] CARBOHYDRATE DEFICIENT TRANS FERRINon 08-04-2024 CARBOHYDRATE DEFICIENT TRANSFERRIN 7.5 % High <1.4 [facility] Comment on above: Result Comment: Norm al:0-1.3%Inconclusive: 1.4-1.6%Elevated: greater than or equal to 1.7%Performed via Capillary Electrophoresis Performed By: #### L [id number] ####Marketing Project Manager: CECI DUPREE ([id number])[facility] ([address] Consulton 08-04-[address] [facility] ECG 12-LEADon 08-04-2024 ECG 12-LEAD IMPRESSION: Sinus rhythm Probable anterior infarct, age indeterminate Electronically Signed On 08-04-2024 02:23:55 EDT by Anaya Wallace [facility] ED Nursing Noteon 08-04-2024 ED Nursing Note Transport here for pt. [facility] No Panel InformationOrdered By: Anaya Wallace on 08-04-2024 P [place] 35 degrees [email or web address] Work Phone: TX Interval 154 ms [email or web address] Work Phone: QRS [place] 80 degrees [email or web address] Work Phone: QRSD Interval 86 ms [email or web address] Work Phone: QT Interval 364 ms [email or web address] Work Phone: QTC Interval 461 ms [email or web address] Work Phone: T Wave [place] 47 degrees [email or web address] Work Phone: [email or web address] Work Phone: No Panel Informationon 08-04 Sinus rhythm Probable anterior infarct, age indeterminate Electronically Signed On 08-04-2024 02:23:55 EDT by Anaya Wallace CV Anaya Wong D O - 08/04/2024 IMPRESSION: Sinus rhythm Probable anterior infarct, age indeterminate Electronically Signed On 08-04-2024 02:23:55 EDT by Anaya Wallace [facility] Nursing Noteon 08-04-2024 Nursing Note Patient is up and st madeleine, seen in group room socializing. Pt is cooperative and med compliant. Pt has shingles on right flank and back. Pt denies SI/HI/AVH. Pt encouraged to notify staff for any questions and concerns. Normal [facility] Nursing Note Administered PRN Oxy codone for shingles pain. Will monitor effectiveness. Normal [facility] Nursing Note Normal [facility] Nursing Note Normal [facility] Vital signsOrdered By: Godwin Wallace on 08-04-2024 Heart rate 96 /min bpm [facility] Phone: CBC W Auto Differential pane l (Bld)Ordered By: Aurora Garcia on 08-03-2024 Basophils (Bld) [#/Vol] 0 10*3/uL 0.0 - 0.2 10*3/uL [facility] Basophils/100 WBC (Bld) 0.6 % 0.0 - 2.0 % [facility] Eosinophils (Bld) [#/Vol] 0.1 10*3/uL 0.0 - 0.5 10*3/uL [facility] Eosinophils/100 WBC (Bld) 1.2 % 0.0 - 6.0 % [facility] Erythrocyte distribution width (RBC) [Ratio] 13.2 % 11.5 - 15.0 % [facility] Hematocrit (Bld) [Volume fraction] 48.4 % 40.0 - 52.0 % [facility] Hemoglobin (Bld) [Mass/Vol] 17.1 g/dL 13.0 - 18.0 g/dL [facility] Immature granulocytes (Bld) [#/Vol] 0 10*3/uL NINF - 0.1 10*3/uL [facility] Immature granulocytes/100 WBC (Bld) 0.4 % 0.0 - 2.0 % [facility] Interpretation and review of laboratory results Abnormal [facility] Lymphocytes (Bld) [#/Vol] 1.7 10*3/uL 1.0 - 4.3 10*3/uL [facility] Lymphocytes/100 WBC (Bld) 33.3 % 15.0 - 45.0 % [facility] MCH (RBC) [Entitic mass] 33.9 pg 26.0 - 34.0 pg [facility] MCHC (RBC) [Mass/Vol] 35.3 % 30.5 - 36.0 % [facility] MCV (RBC) [Entitic vol] 95.8 fL 77.0 - 99.0 fL [facility] Monocytes (Bld) [#/Vol] 0.6 10*3/uL 0.0 - 0.9 10*3/uL [facility] Monocytes/100 WBC (Bld) 12.8 % 5.0 - 13.0 % [facility] Neutrophils (Bld) [#/Vol] 2.6 10*3/uL 1.8 - 7.5 10*3/uL [facility] Neutrophils/100 WBC (Bld) 51.7 % 38.0 - 82.0 % [facility] Nucleated RBC/100 WBC (Bld) [Ratio] 0 % [facility] Platelet mean volume (Bld) [Entitic vol] 8.8 fL Low 9.0 - 12.7 fL [facility] Platelets (Bld) [#/Vol] 137 10*3/uL Low 140 - 440 10*3/uL [facility] RBC (Bld) [#/Vol] 5.05 10*6/uL 4.40 - 5.90 10*6/uL [facility] WBC (Bld) [#/Vol] 5 10*3/uL 3.6 - 10.7 10*3/uL [facility] CBC WITH AUTO DIFFERENTIALon 08-03-2024 Basophils (Bld) [#/Vol] 0.0 10*3/uL Normal 0.0-0.2 [facility] Comment on above: Performed By: #### L [id number] ####Marketing Project Manager: REINIER ZHU ([id number])[facility] ([facility])[address] Basophils/100 WBC (Bld) 0.6 % Normal 0.0-2.0 [facility] Comment on above: Performed By: #### L [id number] ####Marketing Project Manager: REINIER ZHU ([phone])[facility] ([facility])[address] Eosinophils (Bld) [#/Vol] 0.1 10*3/uL Normal 0.0-0.5 [facility] Comment on above: Performed By: #### L [id number] ####Marketing Project Manager: REINIER ZHU ([id number])[facility] [place] ([facility])[address] Eosinophils/100 WBC (Bld) 1.2 % Normal 0.0-6.0 [facility] Comment on above: Performed By: #### L [id number] ####Marketing Project Manager: REINIER ZHU ([id number])[facility] [place] ([facility])[address] [place] [address] Erythrocyte distribution width (RBC) [Ratio] 13.2 % Normal 11.5-15.0 [facility] Comment on above: Performed By: #### L [id number] ####Marketing Project Manager: REINIER ZHU ([id number])[facility] [place] ([facility])[address] [place] [address] Hematocrit (Bld) [Volume fraction] 48.4 % Normal 40.0-52.0 [facility] Comment on above: Performed By: #### L [id number] ####Marketing Project Manager: REINIER ZHU ([id number])[facility] [place] ([facility])[address] [place] [address] Hemoglobin (Bld) [Mass/Vol] 17.1 g/dL Normal 13.0-18.0 [facility] Comment on above: Performed By: #### L [id number] ####Marketing Project Manager: REINIER ZHU ([id number])[facility] [place] [address] IMMATURE GRANS % 0.4 % Normal 0.0-2.0 [facility] Comment on above: Performed By: #### L [id number] ####Marketing Project Manager: REINIER ZHU ([id number])[facility] [place] [address] IMMATURE GRANS ABSOLUTE 0.0 10*3/uL Normal <0.1 [facility] Comment on above: Performed By: #### L [id number] ####Marketing Project Manager: REINIER ZHU ([id number])[facility] ([facility])[address] [place] [address] Lymphocytes (Bld) [#/Vol] 1.7 10*3/uL Normal 1.0-4.3 [facility] Comment on above: Performed By: #### L [id number] ####Marketing Project Manager: REINIER ZHU ([id number])[facility] ([facility])[address] [place] [address] Lymphocytes/100 WBC (Bld) 33.3 % Normal 15.0-45.0 [facility] Comment on above: Performed By: #### L [id number] ####Marketing Project Manager: REINIER ZHU ([id number])[facility])[address] [place] [address] MCH (RBC) [Entitic mass] 33.9 pg Normal 26.0-34.0 [facility] Comment on above: Performed By: #### L [id number] ####Marketing Project Manager: REINIER ZHU ([phone])[facility] [place] [address] MCHC 35.3 % Normal 30.5-36.0 [facility] Comment on above: Performed By: #### L [id number] ####Marketing Project Manager: REINIER OVIEDOBriseidaROGER ([id number])[facility] ([facility])[address] MCV (RBC) [Entitic vol] 95.8 fL Normal 77.0-99.0 [facility] Comment on above: Performed By: #### L [id number] ####Marketing Project Manager: REINIER MARKO ([id number])[facility] ([facility])[address] Monocytes (Bld) [#/Vol] 0.6 10*3/uL Normal 0.0-0.9 [facility] Comment on above: Performed By: #### L [id number] ####Marketing Project Manager: RIENIER MARKO ([phone])[facility] [place] ([facility])[address] Monocytes/100 WBC (Bld) 12.8 % Normal 5.0-13.0 [facility] Comment on above: Performed By: #### L [id number] ####Marketing Project Manager: REINIER MARKO ([id number])[facility] ([facility])[address] NEUTROPHILS ABSOLUTE 2.6 10*3/uL Normal 1.8-7.5 [facility] Comment on above: Performed By: #### L [id number] ####Marketing Project Manager: REINIER OVIEDOVINAYAK ([phone])[facility] [place] ([facility])[address] Neutrophils/100 WBC (Bld) 51.7 % Normal 38.0-82.0 [facility] Comment on above: Performed By: #### L [id number] ####Marketing Project Manager: REINIER MORINROGER ([phone])[facility] ([facility])[address] NRBC 0.0 /100 WBCs Normal 0.0-2.0 [facility] Comment on above: Performed By: #### L [id number] ####Marketing Project Manager: REINIER ZHU ([id number])[facility] [place] ([facility])[address] Platelet mean volume (Bld) [Entitic vol] 8.8 fL Low 9.0-12.7 [facility] Comment on above: Performed By: #### L [id number] ####Marketing Project Manager: REINIER ZHU ([id number])[facility] [place] ([facility])[address] Platelets (Bld) [#/Vol] 137 10*3/uL Low 140-440 [facility] Comment on above: Performed By: #### L [id number] ####Marketing Project Manager: REINIER ZHU ([id number])[facility] ([facility])[address] RBC (Bld) [#/Vol] 5.05 10*6/uL Normal 4.40-5.90 [facility] Comment on above: Performed By: #### L [id number] ####Marketing Project Manager: REINIER ZHU ([id number])[facility] [place] ([facility])[address] WBC (Bld) [#/Vol] 5.0 10*3/uL Normal 3.6-10.7 [facility] Comment on above: Performed By: #### L [id number] ####Marketing Project Manager: REINIER ZHU ([id number])[facility] [place] ([facility])[address] COMPREHENSIVE METABOLIC PANE Arnulfo 08-03-2024 Albumin [Mass/Vol] 3.6 g/dL Normal 3.5-5.0 [facility] Comment on above: Performed By: #### L AB46, LAB17 ####Marketing Project Manager: REINIER ZHU ([phone])[facility] [place] ([facility])[address] ALP [Catalytic activity/Vol] 103 U/L Normal 40-150 [facility] Comment on above: Performed By: #### L AB46, LAB17 ####Marketing Project Manager: REINIER BATISTACER ([phone])[facility] ([facility])[address] ALT [Catalytic activity/Vol] 32 U/L Normal <40 [facility] Comment on above: Performed By: #### L AB46, LAB17 ####Marketing Project Manager: REINIER ZHU ([id number])[facility] ([facility])[address] Anion gap [Moles/Vol] 12 mmol/L Normal 3-13 [facility] Comment on above: Performed By: #### L AB46, LAB17 ####Marketing Project Manager: REINIER MORINROGER ([phone])[facility] ([facility])[address] AST [Catalytic activity/Vol] 42 U/L High <34 [facility] Comment on above: Performed By: #### L AB46, LAB17 ####Marketing Project Manager: REINIER ZHU ([phone])[facility] ([facility])[address] Bilirubin [Mass/Vol] 0.3 mg/dL Normal <1.2 [facility] Comment on above: Performed By: #### L AB46, LAB17 ####Marketing Project Manager: REINIER ZHU ([id number])[facility] ([facility])[address] [address] Calcium [Mass/Vol] 8.4 mg/dL Normal 8.4-10.2 [facility] Comment on above: Performed By: #### L AB46, LAB17 ####Marketing Project Manager: REINIER ZHU ([phone])[facility] (SBHLAB)[address] Chloride [Moles/Vol] 98 mmol/L Normal 98-107 [facility] Comment on above: Performed By: #### L AB46, LAB17 ####Marketing Project Manager: REINIER BATISTACER ([phone])[facility] (SBHLAB)[address] CO2 [Moles/Vol] 26 mmol/L Normal 22-29 [facility] Comment on above: Performed By: #### L AB46, LAB17 ####Marketing Project Manager: REINIER OVIEDOBriseidaROGER ([phone])[facility] (SBHLAB)[address] Creatinine [Mass/Vol] 0.64 mg/dL Low 0.72-1.25 [facility] Comment on above: Performed By: #### L AB46, LAB17 ####Marketing Project Manager: REINIER ZHU ([phone])[facility] (SBHLAB)[address] GLOMERULAR FILTRATION RATE ML/MIN/1.73 SQ M.PREDICTED >90.0 Normal >60.0 [facility] Comment on above: Result Comment: Calc ulation based on the Chronic Kidney Disease Epidemiology Collaboration (CKD-EPI) equation refit without adjustment for race Performed By: #### L AB46, LAB17 ####Marketing Project Manager: REINIER ZHU ([phone])[facility] (SBHLAB)[address] Glucose [Mass/Vol] 113 mg/dL High 74-100 [facility] Comment on above: Performed By: #### L AB46, LAB17 ####Marketing Project Manager: REINIER ZHU ([phone])[facility] (SBHLAB)[address] [place] [address] [place] Potassium [Moles/Vol] 4.2 mmol/L Normal 3.5-5.1 [facility] Comment on above: Result Comment: [facility] potassium values may be up to 0.5 mmol/L lower than serum values. Performed By: #### L AB46, LAB17 ####Marketing Project Manager: REINIER ZHU ([phone])[facility] (SBHLAB)[address] Protein [Mass/Vol] 7.4 g/dL Normal 6.4-8.3 [facility] Comment on above: Performed By: #### L AB46, LAB17 ####Marketing Project Manager: REINIER ZHU ([phone])[facility] [place] (SBHLAB)[address] Sodium [Moles/Vol] 136 mmol/L Normal 136-145 [facility] Comment on above: Performed By: #### L AB46, LAB17 ####Marketing Project Manager: REINIER ZHU ([phone])[facility] (SBHLAB)[address] Urea nitrogen [Mass/Vol] 5 mg/dL Low 9-23 [facility] Comment on above: Performed By: #### L AB46, LAB17 ####Marketing Project Manager: REINIER ZHU ([phone])[facility] (SBHLAB)[address] Comprehensive metabolic 1998 panelon 08-03-2024 Albumin [Mass/Vol] 3.6 g/dL 3.5 - 5.0 g/dL [facility] ALP [Catalytic activity/Vol] 103 U/L 40 - 150 U/L [facility] ALT [Catalytic activity/Vol] 32 U/L NINF - 40 U/L [facility] Anion gap [Moles/Vol] 12 mmol/L 3 - 13 mmol/L [facility] AST [Catalytic activity/Vol] 42 U/L High NINF - 34 U/L [facility] Bilirubin [Mass/Vol] 0.3 mg/dL NINF - 1.2 mg/dL [facility] Calcium [Mass/Vol] 8.4 mg/dL 8.4 - 10. 2 mg/dL [facility] Chloride [Moles/Vol] 98 mmol/L 98 - 10 7 mmol/L [facility] CO2 [Moles/Vol] 26 mmol/L 22 - 29 mmol/L [facility] Creatinine [Mass/Vol] 0.64 mg/dL Low 0.72 - 1.25 mg/dL [facility] GFR/1.73 sq M.predicted (S/P/Bld) [Vol rate/Area] - PINF [facility] Comment on above: Calculation based on the Chronic Kidney Disease Epidemiology Collaboration (CKD-EPI) equation refit without adjustment for race Glucose [Mass/Vol] 113 mg/dL High 74 - 100 mg/dL [facility] Interpretation and review of laboratory results Abnormal [facility] Potassium [Moles/Vol] 4.2 mmol/L 3.5 - 5.1 mmol/L [facility] Comment on above: Plasma potassium juan ues may be up to 0.5 mmol/L lower than serum values. Protein [Mass/Vol] 7.4 g/dL 6.4 - 8.3 g/dL [facility] Sodium [Moles/Vol] 136 mmol/L 136 - 145 mmol/L [facility] Urea nitrogen [Mass/Vol] 5 mg/dL Low 9 - 23 mg/dL [facility] DRUGS OF ABUSEon 08-03-2024 AMPHETAMINE SCREEN Negative Normal [facility] Comment on above: Performed By: #### L [id number] ####Marketing Project Manager: REINIER ZHU ([phone])[facility] BARBITURATES SCREEN Negative Normal [facility] Comment on above: Performed By: #### L [id number] ####Marketing Project Manager: REINIER ZHU ([phone])[facility] (SBHLAB)[address] BENZODIAZEPINE SCREEN Negative Normal [facility] Comment on above: Performed By: #### L [id number] ####Marketing Project Manager: REINIER ZHU ([phone])[facility] (SBHLAB)[address] COCAINE METAB. SCREEN Negative Normal [facility] Comment on above: Performed By: #### L [id number] ####Marketing Project Manager: REINIER ZHU ([phone])[facility] (SBAB)[address] FENTANYL SCREEN, UR QUAL Negative Normal [facility] Comment on above: Result [...] under separate order. Performed By: #### L [id number] ####Marketing Project Manager: REINIER ZHU ([phone])[facility] ([facility])[address] METHADONE SCREEN Negative [facility] Comment on above: Performed By: #### L [id number] ####Marketing Project Manager: REINIER ZHU ([phone])[facility] ([facility])[address] OPIATES SCREEN Negative Normal [facility] Comment on above: Performed By: #### L [id number] ####Marketing Project Manager: REINIER ZHU ([phone])[facility] ([facility])[address] [place] [address] OXYCODONE SCREEN Negative [facility] Comment on above: Performed By: #### L [id number] ####Marketing Project Manager: REINIER ZHU ([phone])[facility] PHENCYCLIDINE SCREEN Negative Normal [facility] Comment on above: Performed By: #### L [id number] ####Marketing Project Manager: REINIER ZHU ([phone])[facility] ([facility])[address] ED Nursing Noteon 08-03-2024 ED Nursing Note Called report to RN at [facility]. Normal [facility] ED Nursing Note Patient here for a r yasmani on his right rib area around to his back. Burning and painful. Patient also wants to be in rehab for his drinking his last drink was today and he drinks at least 8 tall boys per day. Normal [facility] ED Provider Noteon ED Provider Note Normal [facility] ETHANOLon 08-03-2024 ETHANOL IN SER/PLAS 375 mg/dL Critically high <10 [facility] Comment on above: Result Comment: [place] R COMMENTS: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NOTE: This result is for medical treatment only. Analysis performed using non-forensic procedures. Performed By: #### L AB46, LAB17 ####Marketing Project Manager: REINIER ZHU ([phone])[facility] (SBAB)[address] [place] [address] Ethanol (Bld) [Mass/Vol]Rajanie red By: Jacqueline Smith on 08-03-2024 Ethanol [Mass/Vol] 375 mg/dL Critically high NINF - 10 mg/dL [facility] Interpretation and review of laboratory results Abnormal [facility] FOLDER TAPER OPERATOR depression is se en >100 mg/dL. NOTE: This result is for medical treatment only. Analysis performed using non-forensic procedures. [facility] Laboratory - Drug toxicology on 08-03-2024 Amphetamines Screen method >1000 ng/mL Ql (U) Negative [facility] Barbiturates Screen method >200 ng/mL Ql (U) Negative [facility] Benzodiazepines Ql (U) Negative [facility] Methadone Screen Ql (U) Negative [facility] Opiates Screen Ql (U) Negative [facility] oxyCODONE Ql (U) Negative [facility] Phencyclidine Ql (U) Negative [facility] Laboratory - Microbiology an d Antimicrobial susceptibilityOrdered By: Chip Clinton on 08-03-2024 SARS-CoV-2 (COVID-19) Ag IA.rapid Ql (Resp) Negative Negative [facility] Comment on above: A negative result do es not rule out the possibility of SARS-CoV-2 infection. NAAT-based methods should be considered for symptomatic patients presenting greater than seven days after onset of symptoms. Method: Lateral flow immunoassay. Fact sheets for healthcare providers and patients can be found at the following sites: https://www.fda.gov/media/034485/download https://www.fda.gov/media/590962/download No Panel Informationon 08-03 COCAINE METAB. SCREEN Negative [facility] FENTANYL SCREEN, UR QUAL Negative [facility] The expected value f or [...] is needed, request confirmation under separate order. [facility] SARS-COV-2 ANTIGENon 025 SARS-COV-2 ANTIGEN Normal [facility] Comment on above: Performed By: #### L [id number] ####Marketing Project Manager: REINIER ZHU ([phone])[facility] ([facility])[address] [place] [address] SARS-CoV-2 (COVID-19) Ag IA. rapid Ql (Resp)Ordered By: Chip Clinton on 08-03-2024 Interpretation and review of laboratory results Normal [facility] 36on 07-16-2024 36 Attempt #3 LVM for p atient to call our office to schedule follow up to review CT results. Normal [facility] Progress Noteon 07-03-2024 Progress Note Normal [facility] ED Provider Noteon ED Provider Note Normal [facility] XR Foot - left 2 Viewson 1. No acute finding. Report Dictated on Electronically Signed By: Larry Carvalho MD Electronically Signed Date/Time: 07/01/2024 8:07 PM EDT [facility]Y [facility] Patient Name: MARIA DE JESUS [...] soft tissue gas or foreign body. [facility] Larry Carvalho MD - 07/01/2024 [...] Electronically Signed Date/Time: 07/01/2024 8:07 PM EDT [facility] Radiology Study observation (narrative) [facility] XR Foot - left 2 ViewsOrdere d By: Larry Carvalho on 07-01-2024 [facility] Work Phone: 36on 06-25-2024 36 LVM for patient to c all our office to reschedule missed appointment with ML. Will send [employer] message as well. Normal [facility] 36on 06-23-2024 36 Normal [facility] 36 Normal [facility] 36on 06-19-2024 36 Normal [facility] Progress Noteon 06-16-2024 Progress Note Normal [facility] CT CHEST WO IV CONTRASTon CT CHEST WO IV CONTRAST Normal [facility] 36on 06-08-2024 36 We have been unable to reach your patient to schedule their testing. Test Name: US zaidi complete 1st attempt, via [employer] message, 05/23/24 JS 2nd attempt called LVBryant. ROSHNI to office. sent [employer] message. 06/08/[address] [facility] 36on 06-05-[address] [facility] [id number] 06-04-2024 [id number] Social work consult placed for patient. Notified areas of S NAHOMY noted at current time. Social work consult is cleared. [facility] Nursing Noteon 06-04-[address] [facility] Nursing Note No issue reported af ter the Naltrexone pill given to the patient. He reports last time he took the medication it really helped his cravings. He reports taking the oral and injection form once in the past. Normal [facility] Nursing Note [facility] Nursing Note Patient is up and st madeleine, seen socializing in group room. Pt is cooperative and med compliant. Pt denies SI/HI/AVH. Pt encouraged to notify staff for any questions and concerns. Normal [facility] Progress Noteon 06-04-[address] [facility] Progress Note Nutrition rescreen completed. Patient assigned a level 1. [facility] [id number] 06-03-[id number] [facility] 36on 06-03-2024 36 LVM for pt to call o arianneice to reschedule CT scan and follow up kavon Lara. [facility] 94on 06-03-[address] [facility] Nursing Noteon 06-03-2024 Nursing Note Normal [facility] Nursing Note Patient received Ishan otine Lozenge as per orders PRN PO at 1340, and 1740. Normal [facility] Nursing Note Med. Rec. Done with Jesse at [facility] at 1230. Normal [facility] Nursing Note Patient received PO PRN Tylenol as per orders at 1228 for lower back arthritis pain. Normal [facility] Nursing Note Patient received Ishan otine Lozenge at 1139 and 1705 PRN PO as per orders. Patient received PO PRN Albuterol as per orders at 1705. Normal [facility] Nursing Note Normal [facility] 36on 06-02-2024 36 Normal [facility] 36 Normal [facility] CBC (HEMOGRAM)on 06-02-2024 Erythrocyte distribution width (RBC) [Ratio] 13.4 % Normal 11.5-15.0 [facility] Comment on above: Performed By: #### L [id number] ####Marketing Project Manager: REINIER ZHU ([phone])[facility] (SBHLAB)[address] [place] [address] Hematocrit (Bld) [Volume fraction] 45.6 % Normal 40.0-52.0 [facility] Comment on above: Performed By: #### L [id number] ####Marketing Project Manager: REINIER ZHU ([phone])[facility] (SBHLAB)[address] Hemoglobin (Bld) [Mass/Vol] 15.8 g/dL Normal 13.0-18.0 [facility] Comment on above: Performed By: #### L [id number] ####Marketing Project Manager: REINIER ZHU ([phone])[facility] (SBHLAB)[address] MCH (RBC) [Entitic mass] 33.1 pg Normal 26.0-34.0 [facility] Comment on above: Performed By: #### L [id number] ####Marketing Project Manager: REINIER ZHU ([phone])[facility] (SBHLAB)[address] MCHC 34.6 % Normal 30.5-36.0 [facility] Comment on above: Performed By: #### L [id number] ####Marketing Project Manager: REINIER ZHU ([phone])[facility] (SBHLAB)[address] MCV (RBC) [Entitic vol] 95.6 fL Normal 77.0-99.0 [facility] Comment on above: Performed By: #### L [id number] ####Marketing Project Manager: REINIER ZHU ([phone])[facility] (SBHLAB)[address] Platelet mean volume (Bld) [Entitic vol] 8.8 fL Low 9.0-12.7 [facility] Comment on above: Performed By: #### L [id number] ####Marketing Project Manager: REINIER ZHU ([phone])[facility] [place] (SBHLAB)[address] Platelets (Bld) [#/Vol] 184 10*3/uL Normal 140-440 [facility] Comment on above: Performed By: #### L [id number] ####Marketing Project Manager: REINIER ZHU ([phone])[facility]ITAL[facility] (SBHLAB)[address] RBC (Bld) [#/Vol] 4.77 10*6/uL Normal 4.40-5.90 [facility] Comment on above: Performed By: #### L [id number] ####Marketing Project Manager: REINIER ZHU ([phone])[facility] (SBHLAB)[address] WBC (Bld) [#/Vol] 6.7 10*3/uL Normal 3.6-10.7 [facility] Comment on above: Performed By: #### L [id number] ####Marketing Project Manager: REINIER ZHU ([phone])[facility] (SBHLAB)[address] CBC panel Auto (Bld)on 06-02 Erythrocyte distribution width (RBC) [Ratio] 13.4 % 11.5 - 15.0 % [facility] Hematocrit (Bld) [Volume fraction] 45.6 % 40.0 - 52.0 % [facility] Hemoglobin (Bld) [Mass/Vol] 15.8 g/dL 13.0 - 18.0 g/dL [facility] Interpretation and review of laboratory results Abnormal [facility] MCH (RBC) [Entitic mass] 33.1 pg 26.0 - 34.0 pg [facility] MCHC (RBC) [Mass/Vol] 34.6 % 30.5 - 36.0 % [facility] MCV (RBC) [Entitic vol] 95.6 fL 77.0 - 99.0 fL [facility] Platelet mean volume (Bld) [Entitic vol] 8.8 fL Low 9.0 - 12.7 fL [facility] Platelets (Bld) [#/Vol] 184 10*3/uL 140 - 440 10*3/uL [facility] RBC (Bld) [#/Vol] 4.77 10*6/uL 4.40 - 5.90 10*6/uL [facility] WBC (Bld) [#/Vol] 6.7 10*3/uL 3.6 - 10.7 10*3/uL [facility] COMPREHENSIVE METABOLIC PANE Arnulfo 06-02-2024 Albumin [Mass/Vol] 3.6 g/dL Normal 3.5-5.0 [facility] Comment on above: Performed By: #### L AB46, LAB17, [id number] ####Marketing Project Manager: REINIER ZHU ([phone])[facility] ([facility])[address] [place] [address] ALP [Catalytic activity/Vol] 110 U/L Normal 40-150 [facility] Comment on above: Performed By: #### Jose Carlos AB46, LAB17, [id number] ####Marketing Project Manager: REINIER ZHU ([phone])[facility] ALT [Catalytic activity/Vol] 44 U/L High <40 [facility] Comment on above: Performed By: #### L AB46, LAB17, [id number] ####Marketing Project Manager: REINIER ZHU ([phone])[facility] ([facility])[address] Anion gap [Moles/Vol] 14 mmol/L High 3-13 [facility] Comment on above: Performed By: #### L AB46, LAB17, [id number] ####Marketing Project Manager: REINIER MARKO ([phone])[facility]ITAL[facility] [place] (SBHLAB)[address] AST [Catalytic activity/Vol] 49 U/L High <34 [facility] Comment on above: Performed By: #### L AB46, LAB17, [id number] ####Marketing Project Manager: REINIER OVIEDOVINAYAK ([phone])[facility] (SBHLAB)[address] Bilirubin [Mass/Vol] 0.4 mg/dL Normal <1.2 [facility] Comment on above: Performed By: #### L AB46, LAB17, [id number] ####Marketing Project Manager: REINIER OVIEDOVINAYAK ([phone])[facility]ITAL[facility] (SBHLAB)[address] Calcium [Mass/Vol] 8.9 mg/dL Normal 8.4-10.2 [facility] Comment on above: Performed By: #### L AB46, LAB17, [id number] ####Marketing Project Manager: REINIER OVIEDOVINAYAK ([phone])[facility]ITAL[facility] (SBHLAB)[address] Chloride [Moles/Vol] 97 mmol/L Low 98-107 [facility] Comment on above: Performed By: #### L AB46, LAB17, [id number] ####Marketing Project Manager: REINIER OVIEDOVINAYAK ([phone])[facility] (SBHLAB)[address] [place] [address] [place] CO2 [Moles/Vol] 23 mmol/L Normal 22-29 [facility] Comment on above: Performed By: #### L AB46, LAB17, [id number] ####Marketing Project Manager: REINIER OVIEDOVINAYAK ([phone])[facility] (SBHLAB)[address] Creatinine [Mass/Vol] 0.59 mg/dL Low 0.72-1.25 [facility] Comment on above: Performed By: #### L AB46, LAB17, [id number] ####Marketing Project Manager: REINIER ZHU ([phone])[facility] (SBHLAB)[address] GLOMERULAR FILTRATION RATE ML/MIN/1.73 SQ M.PREDICTED >90.0 Normal >60.0 [facility] Comment on above: Result Comment: Calc ulation based on the Chronic Kidney Disease Epidemiology Collaboration (CKD-EPI) equation refit without adjustment for race Performed By: #### L AB46, LAB17, [id number] ####Marketing Project Manager: REINIER ZHU ([phone])[facility] (SBHLAB)[address] [place] [address] Glucose [Mass/Vol] 85 mg/dL Normal 74-100 [facility] Comment on above: Performed By: #### L AB46, LAB17, [id number] ####Marketing Project Manager: REINIER ZHU ([phone])[facility] (SBHLAB)[address] [place] [address] Potassium [Moles/Vol] 4.2 mmol/L Normal 3.5-5.1 [facility] Comment on above: Result Comment: [facility] potassium values may be up to 0.5 mmol/L lower than serum values. Performed By: #### L AB46, LAB17, [id number] ####Marketing Project Manager: REINIER ZHU ([phone])[facility] (SBHLAB)[address] [place] [address] Protein [Mass/Vol] 7.2 g/dL Normal 6.4-8.3 [facility] Comment on above: Performed By: #### L AB46, LAB17, [id number] ####Marketing Project Manager: REINIER ZHU ([phone])[facility] (SBHLAB)[address] [place] [address] Sodium [Moles/Vol] 134 mmol/L Low 136-145 [facility] Comment on above: Performed By: #### L AB46, LAB17, [id number] ####Marketing Project Manager: REINIER ZHU ([phone])[facility] (SBHLAB)[address] Urea nitrogen [Mass/Vol] 3 mg/dL Low 9-23 [facility] Comment on above: Performed By: #### L AB46, LAB17, [id number] ####Marketing Project Manager: REINIER ZHU ([phone])[facility] (SBHLAB)[address] Comprehensive metabolic 1998 panelon 06-02-2024 Albumin [Mass/Vol] 3.6 g/dL 3.5 - 5.0 g/dL [facility] ALP [Catalytic activity/Vol] 110 U/L 40 - 150 U/L [facility] ALT [Catalytic activity/Vol] 44 U/L High NINF - 40 U/L [facility] Anion gap [Moles/Vol] 14 mmol/L High 3 - 13 mmol/L [facility] AST [Catalytic activity/Vol] 49 U/L High [facility] - [facility] U/L [facility] Bilirubin [Mass/Vol] 0.4 mg/dL [facility] - 1.2 mg/dL [facility] Calcium [Mass/Vol] 8.9 mg/dL 8.4 - 10. 2 mg/dL [facility] Chloride [Moles/Vol] 97 mmol/L Low 98 - 10 7 mmol/L [facility] CO2 [Moles/Vol] 23 mmol/L 22 - 29 mmol/L [facility] Creatinine [Mass/Vol] 0.59 mg/dL Low 0.72 - 1.25 mg/dL [facility] GFR/1.73 sq M.predicted (S/P/Bld) [Vol rate/Area] - PINF [facility] Comment on above: Calculation based on the Chronic Kidney Disease Epidemiology Collaboration (CKD-EPI) equation refit without adjustment for race Glucose [Mass/Vol] 85 mg/dL 74 - 100 mg/dL [facility] Potassium [Moles/Vol] 4.2 mmol/L 3.5 - 5.1 mmol/L [facility] Comment on above: Plasma potassium juan ues may be up to 0.5 mmol/L lower than serum values. Protein [Mass/Vol] 7.2 g/dL 6.4 - 8.3 g/dL [facility] Sodium [Moles/Vol] 134 mmol/L Low 136 - 145 mmol/L [facility] Urea nitrogen [Mass/Vol] 3 mg/dL Low 9 - 23 mg/dL [facility] DRUGS OF ABUSEon 06-02-2024 AMPHETAMINE SCREEN Negative Normal [facility] Comment on above: Performed By: #### L [id number] ####Marketing Project Manager: REINIER ZHU ([phone])[facility] ([facility] [facility] BARBITURATES SCREEN Positive Normal [facility] Comment on above: Performed By: #### L [id number] ####Marketing Project Manager: REINIER ZHU ([phone])[facility] ([facility])[address] BENZODIAZEPINE SCREEN Negative Normal [facility] Comment on above: Performed By: #### L [id number] ####Marketing Project Manager: REINIER ZHU ([phone])[facility] COCAINE METAB. SCREEN Negative Normal [facility] Comment on above: Performed By: #### L [id number] ####Marketing Project Manager: REINIER MORINROGER ([phone])[facility] ([facility])[address] FENTANYL SCREEN, UR QUAL Negative Normal [facility] Comment on above: Result [...] under separate order. Performed By: #### L [id number] ####Marketing Project Manager: REINIER ZHU ([phone])[facility] [place] ([facility])[address] METHADONE SCREEN Negative Normal [facility] Comment on above: Performed By: #### L [id number] ####Marketing Project Manager: REINIERJA ZHU ([phone])[facility] [place] ([facility])[address] OPIATES SCREEN Negative Normal [facility] Comment on above: Performed By: #### L [id number] ####Marketing Project Manager: REINIERJA ZHU ([phone])[facility] ([facility])[address] OXYCODONE SCREEN Negative Normal [facility] Comment on above: Performed By: #### L [id number] ####Marketing Project Manager: REINIER OVIEDOVINAYAK ([phone])[facility] [place] ([facility])[address] PHENCYCLIDINE SCREEN Negative Normal [facility] Comment on above: Performed By: #### L [id number] ####Marketing Project Manager: REINIER MARKO ([phone])[facility] ([facility])[address] ED Nursing Noteon 06-02-2024 ED Nursing Note Called report to Veronica @ [address] [place] [address] ED Nursing Note Pt normally drink 6- 9 tall boys daily. Today pt only drank 3 and his last drink was about 5pm today. Normal [facility] ED Nursing Note Pt last drink 30 min utes ago. Pt drank 3 tallboys today. Normally drinks 6-9 tallboys. Would like to get detoxed [facility] ED Provider Noteon ED Provider Note [facility] ETHANOLon 06-02-2024 ETHANOL IN SER/PLAS 110 mg/dL High <10 [facility] Comment on above: Result Comment: [place] Lagunas COMMENTS: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NOTE: This result is for medical treatment only. Analysis performed using non-forensic procedures. Performed By: #### L [id number], [id number], [id number] ####Marketing Project Manager: REINIER HZU ([phone])[facility] ([facility])[address] [place] [address] Ethanol (Bld) [Mass/Vol]on 0 06-02-2024 Ethanol [Mass/Vol] 110 mg/dL High NINF - 10 mg/dL [facility] FOLDER TAPER OPERATOR depression is se en >100 mg/dL. NOTE: This result is for medical treatment only. Analysis performed using non-forensic procedures. [facility] Laboratory - Chemistry and C hemistry - challengeon 06-02-2024 Magnesium [Mass/Vol] 2 mg/dL 1.6 - 2 .6 mg/dL [facility] Laboratory - Drug toxicology on 06-02-2024 Amphetamines Screen method >1000 ng/mL Ql (U) Negative [facility] Barbiturates Screen method >200 ng/mL Ql (U) Positive [facility] Benzodiazepines Ql (U) Negative [facility] Methadone Screen Ql (U) Negative [facility] Opiates Screen Ql (U) Negative [facility] oxyCODONE Ql (U) Negative [facility] Phencyclidine Ql (U) Negative [facility] Laboratory - Microbiology an d Antimicrobial susceptibilityOrdered By: Johnathan Giron on 06-02-2024 SARS-CoV-2 (COVID-19) Ag IA.rapid Ql (Resp) Negative Negative [facility] Comment on above: A negative result do es not rule out the possibility of SARS-CoV-2 infection. NAAT-based methods should be considered for symptomatic patients presenting greater than seven days after onset of symptoms. Method: Lateral flow immunoassay. Fact sheets for healthcare providers and patients can be found at the following sites: https://www.fda.gov/media/519858/download https://www.fda.gov/media/065281/download MAGNESIUMon 06-02-2024 Magnesium [Mass/Vol] 2.0 mg/dL Normal 1.6-2.6 [facility] Comment on above: Result Comment: ORDE R COMMENTS:Higher values can be expected in females during menses. Performed By: #### L [id number], LAB17, [id number] ####Marketing Project Manager: REINIER HZU ([phone])[facility] ([facility])[address] Magnesium [Mass/Vol]on 06-02 Interpretation and review of laboratory results Normal [facility] Higher values can be expected in females during menses. [facility] No Panel Informationon 06-02 COCAINE METAB. SCREEN Negative [facility] FENTANYL SCREEN, UR QUAL Negative [facility] The expected value f or [...] is needed, request confirmation under separate order. [facility] Interpretation and review of laboratory results Abnormal [facility] SARS-COV-2 ANTIGENon 025 SARS-COV-2 ANTIGEN Normal [facility] Comment on above: Performed By: #### L [id number] ####Marketing Project Manager: REINIER ZHU ([phone])[facility] ([facility])[address] [place] [address] SARS-CoV-2 (COVID-19) Ag IA. rapid Ql (Resp)Ordered By: Johnathan Giron on 06-02-2024 Interpretation and review of laboratory results Normal [facility] Progress Noteon 05-28-2024 Progress Note Normal [facility] CT CERVICAL SPINE WO IV CONT RASTon 05-25-2024 CT CERVICAL SPINE WO IV CONTRAST Normal [facility] CT Cervical spine WO contras ton 05-25-2024 [...] Multilevel uncovertebral hypertrophy and facet hypertrophy. [facility] RADIOLOGY SYSTEM Cezar Smith MD - 05/25/2024 [...] Electronically Signed Date/Time: 05/25/2024 4:39 PM EST [facility] Radiology Study observation (narrative) [facility] CT HEAD WO IV CONTRASTon CT HEAD WO IV CONTRAST Normal [facility] CT Head WO contraston 2024 Patient [...] Multilevel uncovertebral hypertrophy and facet hypertrophy. [facility] RADIOLOGY SYSTEM Cezar Smith MD - 05/25/2024 [...] MD Electronically Signed Date/Time: 05/25/2024 4:[address] [facility] Radiology Study observation (narrative) [facility] ED Nursing Noteon 05-25-2024 ED Nursing Note Pt was seen standing in his room and closed the curtain. Normal [facility] ED Nursing Note Patient to room 7 wi th c/o a fall down steps today, and hitting his head. Patient has been drinking alcohol today and reports he has drank 3 tall boys today. V/S obtained call light within reach. Normal [facility] ED Provider Noteon ED Provider Note Normal [facility] No Panel Informationon 05-[address] evidence of an acute intracranial abnormality. No evidence of acute cervical spine fracture. Degenerative changes as discussed. Anatomic Variant: None. Assume 7 cervical vertebrae with counting from the craniocervical junction. Report Dictated on Electronically Signed By: Cezar Smith MD Electronically Signed Date/Time: 05/25/2024 4:39 PM [facility] RADIOLOGY SYSTEM No Panel InformationOrdered By: Cezar Smith on 05-25-2024 [facility] Work Phone: 36on 05-23-2024 36 We have been unable to reach your patient to schedule their testing. Test Name: TTE 2nd attempt, my chart message, TE to office, cancel request on 05/20/24. JS 1st attempt LVM on 08.10.23 SDS Normal [facility] Progress Noteon 05-20-[address] [facility] Progress Noteon 05-14-2024 Progress Note Missed Session Unexcused Pt did not call or show for Scheduled Assessment on this date. [facility] 36on 05-13-2024 36 Appointment [address]ched[address]. [facility] 36 Maria De Jesus Farr Samira to [facility] Clinical Telecommunications Network Planner (supporting You) 05/12/24 4:20 PM Yes I got my prescriptions filled and take them as instructed sorry my phone has been acting up [facility] 36on 05-12-[address] [facility] 36 Please get the patie nt scheduled for a hospital follow-up and asked the transition of care questions thank you [facility] 36 Kong Rasheed , Maria De Jesus was recently discharged from the hospital [facility] on 05/10/2024. Sending to you for CAROL follow up appointment direction. [facility] Nursing Noteon 05-10-2024 Nursing Note Escorted off unit [facility] Nursing Note Called for krystina chamberlain on way. Given survey and belongings. to be here in 20. [facility] Nursing Note [facility] Nursing Note Asking to be dischar jennifer, stated needs to go home today. [facility] will call IB himself. Discussed with Dr Thrasher, and he will discharge. [facility] Nursing Note Discussed this [facility] meetings, what his plans are for super bowl, IOP. 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 States he and plan on doing more together for health, walks etc. Discussed leisure activity. [facility] Nursing Note Pt up independently, visualized on unit. Pt cooperative with assessment and compliant with medication [facility] 30on 05-09-[address] [facility] Nursing Noteon 05-09-2024 Nursing Note Patient is up and st made[facility], withdrawn to room for majority of shift. Pt is cooperative and med compliant. Pt denies SI/HI/AVH. Pt encouraged to notify staff for any questions and concerns. [facility] Progress Noteon 05-09-2024 Progress Note Normal [facility] Progress Note Nutrition rescreen completed. Patient assigned a level 1. Normal [facility] Progress Note Normal [facility] [id number] 05-08-2024 [id number] Normal [facility] CARBOHYDRATE DEFICIENT TRANS FERRINon 05-08-2024 CARBOHYDRATE DEFICIENT TRANSFERRIN 6.8 % High <1.4 [facility] Comment on above: Result Comment: Norm al:0-1.3%Inconclusive: 1.4-1.6%Elevated: greater than or equal to 1.7%Performed via Capillary Electrophoresis Performed By: #### L [id number] ####Marketing Project Manager: CECI DUPREE ([phone])[address] ED Nursing Noteon 05-08-2024 ED Nursing Note Report to Evelyn Watts at [facility] on 4E Normal [facility] ED Nursing Note Report to [facility] a t bedside. Vitals taken. Protective at bedside for final wanding. Belongings, detox rules and paperwork sent with patient/EMS Normal [facility] Nursing Noteon 05-08-2024 Nursing Note Normal [facility] Nursing Note Medication rec. Done with Jace at [facility] at 1200. Normal [facility] Nursing Note Patient received Ishan otine Lozenge PRN as per orders at 0850. Normal [facility] Nursing Note Normal [facility] CBC (HEMOGRAM)on 05-07-2024 Erythrocyte distribution width (RBC) [Ratio] 13.4 % Normal 11.5-15.0 [facility] Comment on above: Performed By: #### L [id number] ####Marketing Project Manager: REINIER ZHU ([phone])[facility] ([facility])[address] [place] [address] Hematocrit (Bld) [Volume fraction] 46.7 % Normal 40.0-52.0 [facility] Comment on above: Performed By: #### L [id number] ####Marketing Project Manager: REINIER ZHU ([phone])[facility] ([facility])[address] [place] [address] Hemoglobin (Bld) [Mass/Vol] 16.1 g/dL Normal 13.0-18.0 [facility] Comment on above: Performed By: #### L [id number] ####Marketing Project Manager: REINIER ZHU ([phone])[facility] [place] ([facility])[address] MCH (RBC) [Entitic mass] 32.7 pg Normal 26.0-34.0 [facility] Comment on above: Performed By: #### L [id number] ####Marketing Project Manager: REINIER ZHU ([phone])[facility] PEORIA[facility] ([facility])[address] MCHC 34.5 % Normal 30.5-36.0 [facility] Comment on above: Performed By: #### L [id number] ####Marketing Project Manager: REINIER ZHU ([phone])[facility]BMESILLA VALLEY HOSPITALAnum ([facility])[address] MCV (RBC) [Entitic vol] 94.7 fL Normal 77.0-99.0 [facility] Comment on above: Performed By: #### L [id number] ####Marketing Project Manager: REINIER ZHU ([phone])[facility] PEORIAAnum ([facility])[address] Platelet mean volume (Bld) [Entitic vol] 8.8 fL Low 9.0-12.7 [facility] Comment on above: Performed By: #### L [id number] ####Marketing Project Manager: REINIER ZHU ([phone])[facility] ([facility])[address] Platelets (Bld) [#/Vol] 228 10*3/uL Normal 140-440 [facility] Comment on above: Performed By: #### L [id number] ####Marketing Project Manager: REINIER ZHU ([phone])[facility] ([facility])[address] RBC (Bld) [#/Vol] 4.93 10*6/uL Normal 4.40-5.90 [facility] Comment on above: Performed By: #### L [id number] ####Marketing Project Manager: REINIER ZHU ([id number])[facility] LAWANDA ([facility])[address] WBC (Bld) [#/Vol] 5.7 10*3/uL Normal 3.6-10.7 [facility] Comment on above: Performed By: #### L [id number] ####Marketing Project Manager: REINIER ZHU ([phone])[facility] ([facility])[address] CBC panel Auto (Bld)on 05-07 Erythrocyte distribution width (RBC) [Ratio] 13.4 % 11.5 - 15.0 % [facility] Hematocrit (Bld) [Volume fraction] 46.7 % 40.0 - 52.0 % [facility] Hemoglobin (Bld) [Mass/Vol] 16.1 g/dL 13.0 - 18.0 g/dL [facility] Interpretation and review of laboratory results Abnormal [facility] MCH (RBC) [Entitic mass] 32.7 pg 26.0 - 34.0 pg [facility] MCHC (RBC) [Mass/Vol] 34.5 % 30.5 - 36.0 % [facility] MCV (RBC) [Entitic vol] 94.7 fL 77.0 - 99.0 fL [facility] Platelet mean volume (Bld) [Entitic vol] 8.8 fL Low 9.0 - 12.7 fL [facility] Platelets (Bld) [#/Vol] 228 10*3/uL 140 - 440 10*3/uL [facility] RBC (Bld) [#/Vol] 4.93 10*6/uL 4.40 - 5.90 10*6/uL [facility] WBC (Bld) [#/Vol] 5.7 10*3/uL 3.6 - 10.7 10*3/uL [facility] COMPREHENSIVE METABOLIC PANE Arnulfo 05-07-2024 Albumin [Mass/Vol] 4.0 g/dL Normal 3.5-5.0 [facility] Comment on above: Performed By: #### Jose Carlos LAWS, LAB17, LAB46 ####Marketing Project Manager: REINIER ZHU ([phone])[facility] [place] ([facility])[address] ALP [Catalytic activity/Vol] 98 U/L Normal 40-150 [facility] Comment on above: Performed By: #### Jose Carlos LAWS, LAB17, LAB46 ####Marketing Project Manager: REINIER ZHU ([phone])[facility] [place] ([facility])[address] ALT [Catalytic activity/Vol] 105 U/L High <40 [facility] Comment on above: Performed By: #### Jose Carlos LAWS, LAB17, LAB46 ####Marketing Project Manager: REINIER ZHU ([phone])[facility] [place] ([facility])[address] Anion gap [Moles/Vol] 15 mmol/L High 3-13 [facility] Comment on above: Performed By: #### Jose Carlos LAWS, LAB17, LAB46 ####Marketing Project Manager: REINIER ZHU ([phone])[facility] [place] ([facility])[address] AST [Catalytic activity/Vol] 99 U/L High <34 [facility] Comment on above: Performed By: #### Jose Carlos LAWS, LAB17, LAB46 ####Marketing Project Manager: REINIER ZHU ([phone])[facility] [place] ([facility])[address] [place] [address] [place] Bilirubin [Mass/Vol] 0.4 mg/dL Normal <1.2 [facility] Comment on above: Performed By: #### Jose Carlos LAWS, LAB17, LAB46 ####Marketing Project Manager: REINIER ZHU ([phone])[facility] [place] ([facility])[address] [place] [address] [place] Calcium [Mass/Vol] 9.1 mg/dL Normal 8.4-10.2 [facility] Comment on above: Performed By: #### Jose Carlos LAWS, LAB17, LAB46 ####Marketing Project Manager: REINIER ZHU ([phone])[facility]ITALCh[facility] LOPEZYAZN ([facility]AB)[address] Chloride [Moles/Vol] 96 mmol/L Low 98-107 [facility] Comment on above: Performed By: #### Jose Carlos LAWS, LAB17, LAB46 ####Marketing Project Manager: REINIER ZHU ([phone])[facility]ITALChika LOPEZMESILLA VALLEY HOSPITALN ([facility])[address] CO2 [Moles/Vol] 26 mmol/L Normal 22-29 [facility] Comment on above: Performed By: #### Jose Carlos LAWS, LAB17, LAB46 ####Marketing Project Manager: REINIER ZHU ([phone])[facility] ([facility])[address] Creatinine [Mass/Vol] 0.73 mg/dL Normal 0.72-1.25 [facility] Comment on above: Performed By: #### Jose Carlos LAWS, LAB17, LAB46 ####Marketing Project Manager: REINIER ZHU ([phone])[facility]ITAL[facility] GLOMERULAR FILTRATION RATE ML/MIN/1.73 SQ M.PREDICTED >90.0 Normal >60.0 [facility] Comment on above: Result Comment: Calc ulation based on the Chronic Kidney Disease Epidemiology Collaboration (CKD-EPI) equation refit without adjustment for race Performed By: #### Jose Carlos LAWS, LAB17, LAB46 ####Marketing Project Manager: REINIER ZHU ([phone])[facility]ITALCh[facility] ([facility])[address] [place] [address] [place] Glucose [Mass/Vol] 92 mg/dL Normal 74-100 [facility] Comment on above: Performed By: #### Jose Carlos LAWS, LAB17, LAB46 ####Marketing Project Manager: REINIER ZHU ([phone])[facility] PEORIAAnum ([facility]AB)[address] Potassium [Moles/Vol] 4.1 mmol/L Normal 3.5-5.1 [facility] Comment on above: Result Comment: [facility] potassium values may be up to 0.5 mmol/L lower than serum values. Performed By: #### L AB103, LAB17, LAB46 ####Marketing Project Manager: REINIER ZHU ([phone])[facility] VIRAJBANNER [facility]ARD[facility] ([facility])[address] Protein [Mass/Vol] 7.2 g/dL Normal 6.4-8.3 [facility] Comment on above: Performed By: #### Jose Carlos SHORE103, LAB17, LAB46 ####Marketing Project Manager: REINIER ZHU ([phone])[facility] ([facility])[address] Sodium [Moles/Vol] 137 mmol/L Normal 136-145 [facility] Comment on above: Performed By: #### Jose Carlos AB103, LAB17, LAB46 ####Marketing Project Manager: REINIER ZHU ([phone])[facility] ([facility])[address] Urea nitrogen [Mass/Vol] 3 mg/dL Low 9-23 [facility] Comment on above: Performed By: #### L AB103, LAB17, LAB46 ####Marketing Project Manager: REINIER ZHU ([phone])[facility] ([facility])[address] Comprehensive metabolic 1998 panelon 05-07-2024 Albumin [Mass/Vol] 4 g/dL 3.5 - 5.0 g/dL [facility] ALP [Catalytic activity/Vol] 98 U/L 40 - 150 U/L [facility] ALT [Catalytic activity/Vol] 105 U/L High NINF - 40 U/L [facility] Anion gap [Moles/Vol] 15 mmol/L High 3 - 13 mmol/L [facility] AST [Catalytic activity/Vol] 99 U/L High NINF - 34 U/L [facility] Bilirubin [Mass/Vol] 0.4 mg/dL NINF - 1.2 mg/dL [facility] Calcium [Mass/Vol] 9.1 mg/dL 8.4 - 10. 2 mg/dL [facility] Chloride [Moles/Vol] 96 mmol/L Low 98 - 10 7 mmol/L [facility] CO2 [Moles/Vol] 26 mmol/L 22 - 29 mmol/L [facility] Creatinine [Mass/Vol] 0.73 mg/dL 0.72 - 1.25 mg/dL [facility] GFR/1.73 sq M.predicted (S/P/Bld) [Vol rate/Area] - PINF [facility] Comment on above: Calculation based on the Chronic Kidney Disease Epidemiology Collaboration (CKD-EPI) equation refit without adjustment for race Glucose [Mass/Vol] 92 mg/dL 74 - 100 mg/dL [facility] Interpretation and review of laboratory results Abnormal [facility] Potassium [Moles/Vol] 4.1 mmol/L 3.5 - 5.1 mmol/L [facility] Comment on above: Plasma potassium juan ues may be up to 0.5 mmol/L lower than serum values. Protein [Mass/Vol] 7.2 g/dL 6.4 - 8.3 g/dL [facility] Sodium [Moles/Vol] 137 mmol/L 136 - 145 mmol/L [facility] Urea nitrogen [Mass/Vol] 3 mg/dL Low 9 - 23 mg/dL [facility] DRUGS OF ABUSEon 05-07-2024 AMPHETAMINE SCREEN Negative Normal [facility] Comment on above: Performed By: #### L [id number] ####Marketing Project Manager: REINIER ZHU ([phone])[facility] (SB[facility])[address] [place] [address] BARBITURATES SCREEN Negative Normal [facility] Comment on above: Performed By: #### L [id number] ####Marketing Project Manager: REINIER ZHU ([phone])[facility] ([facility])[address] [place] [address] BENZODIAZEPINE SCREEN Negative Normal [facility] Comment on above: Performed By: #### L [id number] ####Marketing Project Manager: REINIER ZHU ([phone])[facility] ([facility])[address] COCAINE METAB. SCREEN Negative Normal [facility] Comment on above: Performed By: #### L [id number] ####Marketing Project Manager: REINIER ZHU ([phone])[facility] FENTANYL SCREEN, UR QUAL Negative Normal [facility] Comment on above: Result [...] under separate order. Performed By: #### L [id number] ####Marketing Project Manager: REINIER ZHU ([id number])[facility] ([facility])[address] METHADONE SCREEN Negative Normal [facility] Comment on above: Performed By: #### L [id number] ####Marketing Project Manager: REINIER ZHU ([phone])[facility] (HLAB)[address] OPIATES SCREEN Negative Normal [facility] Comment on above: Performed By: #### L [id number] ####Marketing Project Manager: REINIER ZHU ([phone])[facility] (HLAB)[address] OXYCODONE SCREEN Negative Normal [facility] Comment on above: Performed By: #### L [id number] ####Marketing Project Manager: REINIER ZHU ([phone])[facility] VIRAJBAN[facility] ([facility])[address] PHENCYCLIDINE SCREEN Negative Normal [facility] Comment on above: Performed By: #### L [id number] ####Marketing Project Manager: REINIER ZHU ([phone])[facility] [facility] ED Nursing Noteon 05-07-2024 ED Nursing Note Security at bedside for a belongings check Normal [facility] ED Nursing Note Normal [facility] ED Nursing Note [facility] Hamilton [facility] speaking with pt. Normal [facility] ED Provider Noteon ED Provider Note Normal [facility] ETHANOLon 05-07-2024 ETHANOL IN SER/PLAS 351 mg/dL Critically high <10 [facility] Comment on above: Result Comment: ORDE R COMMENTS: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NOTE: This result is for medical treatment only. Analysis performed using non-forensic procedures. Performed By: #### L AB103, LAB17, LAB46 ####Marketing Project Manager: REINIER ZHU ([phone])[facility] [place] [address] Ethanol (Bld) [Mass/Vol]Orde red By: Johnathan Giron on 05-07-2024 Ethanol [Mass/Vol] 351 mg/dL Critically high NINF - 10 mg/dL [facility] Interpretation and review of laboratory results Abnormal [facility] FOLDER TAPER OPERATOR depression is se en >100 mg/dL. NOTE: This result is for medical treatment only. Analysis performed using non-forensic procedures. [facility] Laboratory - Chemistry and C hemistry - challengeon 05-07-2024 Magnesium [Mass/Vol] 2 mg/dL 1.6 - 2 .6 mg/dL [facility] Laboratory - Drug toxicology on 05-07-2024 Amphetamines Screen method >1000 ng/mL Ql (U) Negative [facility] Barbiturates Screen method >200 ng/mL Ql (U) Negative [facility] Benzodiazepines Ql (U) Negative [facility] Methadone Screen Ql (U) Negative [facility] Opiates Screen Ql (U) Negative [facility] oxyCODONE Ql (U) Negative [facility] Phencyclidine Ql (U) Negative [facility] Laboratory - Microbiology an d Antimicrobial susceptibilityOrdered By: Jacqueline Smith on 05-07-2024 SARS-CoV-2 (COVID-19) Ag IA.rapid Ql (Resp) Negative Negative [facility] Comment on above: A negative result do es not rule out the possibility of SARS-CoV-2 infection. NAAT-based methods should be considered for symptomatic patients presenting greater than seven days after onset of symptoms. Method: Lateral flow immunoassay. Fact sheets for healthcare providers and patients can be found at the following sites: https://www.fda.gov/media/186911/download https://www.fda.gov/media/057447/download MAGNESIUMon 05-07-2024 Magnesium [Mass/Vol] 2.0 mg/dL Normal 1.6-2.6 [facility] Comment on above: Result Comment: GEOR[place]IA Lagunas COMMENTS:Higher values can be expected in females during menses. Performed By: #### L AB103, LAB17, LAB46 ####Marketing Project Manager: REINIER ZHU ([phone])[facility] ([facility])[address] [place] [address] Magnesium [Mass/Vol]on 05-07 Interpretation and review of laboratory results Normal [facility] Higher values can be expected in females during menses. [facility] No Panel Informationon 05-07 COCAINE METAB. SCREEN Negative [facility] FENTANYL SCREEN, UR QUAL Negative [facility] The expected value f or [...] is needed, request confirmation under separate order. [facility] Progress Noteon 05-07-2024 Progress Note Normal [facility] SARS-COV-2 ANTIGENon 025 SARS-COV-2 ANTIGEN Normal [facility] Comment on above: Performed By: #### L [id number] ####Marketing Project Manager: REINIER ZHU ([phone])[facility] [place] [address] SARS-CoV-2 (COVID-19) Ag IA. rapid Ql (Resp)Ordered By: Jacqueline Smith on 05-07-2024 Interpretation and review of laboratory results Normal [facility] 36on 04-27-2024 36 Normal [facility] 36 Schedule a hospital follow-up Normal [facility] 30on 04-12-2024 30 Normal [facility] Progress Noteon 04-12-2024 Progress Note Normal [facility] 30on 04-11-2024 30 Normal [facility] 30 Normal [facility] CBC W Auto Differential pane l (Bld)on 04-11-2024 Basophils (Bld) [#/Vol] 0 10*3/uL 0.0 - 0.2 10*3/uL [facility] Basophils/100 WBC (Bld) 0.9 % 0.0 - 2.0 % [facility] Eosinophils (Bld) [#/Vol] 0.1 10*3/uL 0.0 - 0.5 10*3/uL [facility] Eosinophils/100 WBC (Bld) 1.9 % 0.0 - 6.0 % [facility] Erythrocyte distribution width (RBC) [Ratio] 12.7 % 11.5 - 15.0 % [facility] Hematocrit (Bld) [Volume fraction] 42.5 % 40.0 - 52.0 % [facility] Hemoglobin (Bld) [Mass/Vol] 14.6 g/dL 13.0 - 18.0 g/dL [facility] Immature granulocytes (Bld) [#/Vol] 0 10*3/uL NINF - 0.1 10*3/uL [facility] Immature granulocytes/100 WBC (Bld) 0.2 % 0.0 - 2.0 % [facility] Interpretation and review of laboratory results Abnormal [facility] [employer] Lymphocytes (Bld) [#/Vol] 0.8 10*3/uL Low 1.0 - 4.3 10*3/uL [facility] [employer] Lymphocytes/100 WBC (Bld) 19.7 % 15.0 - 45.0 % [facility] MCH (RBC) [Entitic mass] 33 pg 26.0 - 34.0 pg [facility] [employer] MCHC (RBC) [Mass/Vol] 34.4 % 30.5 - 36.0 % [facility] MCV (RBC) [Entitic vol] 95.9 fL 77.0 - 99.0 fL [facility] [employer] Monocytes (Bld) [#/Vol] 0.5 10*3/uL 0.0 - 0.9 10*3/uL [facility] [employer] Monocytes/100 WBC (Bld) 12.4 % 5.0 - 13.0 % [facility] [employer] Neutrophils (Bld) [#/Vol] 2.8 10*3/uL 1.8 - 7.5 10*3/uL [facility] [employer] Neutrophils/100 WBC (Bld) 64.9 % 38.0 - 82.0 % [facility] [employer] Nucleated RBC/100 WBC (Bld) [Ratio] 0 % [facility] [employer] Platelet mean volume (Bld) [Entitic vol] 9.2 fL 9.0 - 12.7 fL [facility] [employer] Platelets (Bld) [#/Vol] 180 10*3/uL 140 - 440 10*3/uL [facility] RBC (Bld) [#/Vol] 4.43 10*6/uL 4.40 - 5.90 10*6/uL [facility] WBC (Bld) [#/Vol] 4.3 10*3/uL 3.6 - 10.7 10*3/uL [facility] CBC WITH AUTO DIFFERENTIALon 04-11-2024 Basophils (Bld) [#/Vol] 0.0 10*3/uL Normal 0.0-0.2 [facility] Comment on above: Performed By: #### L [id number] ####Marketing Project Manager: REINIER ZHU ([phone])[facility] ([facility])[address] [place] [address] Basophils/100 WBC (Bld) 0.9 % Normal 0.0-2.0 [facility] Comment on above: Performed By: #### L [id number] ####Marketing Project Manager: REINIER ZHU ([phone])[facility] ([facility])[address] Eosinophils (Bld) [#/Vol] 0.1 10*3/uL Normal 0.0-0.5 [facility] Comment on above: Performed By: #### L [id number] ####Marketing Project Manager: REINIER ZHU ([phone])[facility] ([facility])[address] Eosinophils/100 WBC (Bld) 1.9 % Normal 0.0-6.0 [facility] Comment on above: Performed By: #### L [id number] ####Marketing Project Manager: REINIER ZUH ([phone])[facility])[address] [place] [address] Erythrocyte distribution width (RBC) [Ratio] 12.7 % Normal 11.5-15.0 [facility] Comment on above: Performed By: #### L [id number] ####Marketing Project Manager: REINIER ZHU ([phone])[facility] ([facility])[address] [place] [address] Hematocrit (Bld) [Volume fraction] 42.5 % Normal 40.0-52.0 [facility] Comment on above: Performed By: #### L [id number] ####Marketing Project Manager: REINIER ZHU ([phone])[facility] ([facility])[address] [place] [address] Hemoglobin (Bld) [Mass/Vol] 14.6 g/dL Normal 13.0-18.0 [facility] Comment on above: Performed By: #### L [id number] ####Marketing Project Manager: REINIER ZHU ([phone])[facility] [place] [address] IMMATURE GRANS % 0.2 % Normal 0.0-2.0 [facility] Comment on above: Performed By: #### L [id number] ####Marketing Project Manager: REINIER OVIEDOBriseidaROGER ([phone])[facility] ([facility])[address] IMMATURE GRANS ABSOLUTE 0.0 10*3/uL Normal <0.1 [facility] Comment on above: Performed By: #### L [id number] ####Marketing Project Manager: REINIER MORINROGER ([phone])[facility])[address] [place] [address] Lymphocytes (Bld) [#/Vol] 0.8 10*3/uL Low 1.0-4.3 [facility] Comment on above: Performed By: #### L [id number] ####Marketing Project Manager: REINIER MORINROGER ([phone])[facility] ([facility])[address] [place] [address] Lymphocytes/100 WBC (Bld) 19.7 % Normal 15.0-45.0 [facility] Comment on above: Performed By: #### L [id number] ####Marketing Project Manager: REINIER ZHU ([phone])[facility] ([facility])[address] [place] [address] MCH (RBC) [Entitic mass] 33.0 pg Normal 26.0-34.0 [facility] Comment on above: Performed By: #### L [id number] ####Marketing Project Manager: REINIER MORINROGER ([phone])[facility] ([facility])[address] [place] [address] MCHC 34.4 % Normal 30.5-36.0 [facility] Comment on above: Performed By: #### L [id number] ####Marketing Project Manager: REINIER ZHU ([phone])[facility] ([facility])[address] [place] [address] MCV (RBC) [Entitic vol] 95.9 fL Normal 77.0-99.0 [facility] Comment on above: Performed By: #### L [id number] ####Marketing Project Manager: REINIER ZHU ([phone])[facility] ([facility])[address] Monocytes (Bld) [#/Vol] 0.5 10*3/uL Normal 0.0-0.9 [facility] Comment on above: Performed By: #### L [id number] ####Marketing Project Manager: REINIER MORINROGER ([phone])[facility] ([facility])[address] Monocytes/100 WBC (Bld) 12.4 % Normal 5.0-13.0 [facility] Comment on above: Performed By: #### L [id number] ####Marketing Project Manager: REINIER MORINROGER ([phone])[facility] ([facility])[address] NEUTROPHILS ABSOLUTE 2.8 10*3/uL Normal 1.8-7.5 [facility] Comment on above: Performed By: #### L [id number] ####Marketing Project Manager: REINIER MORINROGER ([phone])[facility] ([facility])[address] Neutrophils/100 WBC (Bld) 64.9 % Normal 38.0-82.0 [facility] Comment on above: Performed By: #### L [id number] ####Marketing Project Manager: REINIER ZHU ([phone])[facility] ([facility])[address] NRBC 0.0 /100 WBCs Normal 0.0-2.0 [facility] Comment on above: Performed By: #### L [id number] ####Marketing Project Manager: REINIER ZHU ([phone])[facility] ([facility])[address] Platelet mean volume (Bld) [Entitic vol] 9.2 fL Normal 9.0-12.7 [facility] Comment on above: Performed By: #### L [id number] ####Marketing Project Manager: REINIER ZHU ([phone])[facility] [place] ([facility])[address] Platelets (Bld) [#/Vol] 180 10*3/uL Normal 140-440 [facility] Comment on above: Performed By: #### L [id number] ####Marketing Project Manager: REINIER ZHU ([phone])[facility] [place] ([facility])[address] RBC (Bld) [#/Vol] 4.43 10*6/uL Normal 4.40-5.90 [facility] Comment on above: Performed By: #### L [id number] ####Marketing Project Manager: REINIER ZHU ([phone])[facility] ([facility])[address] WBC (Bld) [#/Vol] 4.3 10*3/uL Normal 3.6-10.7 [facility] Comment on above: Performed By: #### L [id number] ####Marketing Project Manager: REINIER ZHU ([phone])[facility] [place] ([facility])[address] COMPREHENSIVE METABOLIC PANE Arnulfo 04-11-2024 Albumin [Mass/Vol] 3.5 g/dL Normal 3.5-5.0 [facility] Comment on above: Performed By: #### L AB113, LAB17, [id number] ####Marketing Project Manager: REINIER ZHU ([phone])[facility] [place] ([facility])[address] ALP [Catalytic activity/Vol] 82 U/L Normal 40-150 [facility] Comment on above: Performed By: #### L AB113, LAB17, [id number] ####Marketing Project Manager: REINIER ZHU ([phone])[facility] [place] ([facility])[address] ALT [Catalytic activity/Vol] 122 U/L High <40 [facility] Comment on above: Performed By: #### L ABKaleb, LAB17, [id number] ####Marketing Project Manager: REINIER ZHU ([phone])[facility] [place] ([facility])[address] Anion gap [Moles/Vol] 10 mmol/L Normal 3-13 [facility] Comment on above: Performed By: #### L ABKaleb, LAB17, [id number] ####Marketing Project Manager: REINIER ZHU ([phone])[facility] ([facility])[address] AST [Catalytic activity/Vol] 73 U/L High <34 [facility] Comment on above: Performed By: #### Jose Carlos ABKaleb, LAB17, [id number] ####Marketing Project Manager: REINIER ZHU ([phone])[facility] ([facility])[address] Bilirubin [Mass/Vol] 0.7 mg/dL Normal <1.2 [facility] Comment on above: Performed By: #### Jose Carlos ABKaleb, LAB17, [id number] ####Marketing Project Manager: REINIER ZHU ([phone])[facility] ([facility])[address] Calcium [Mass/Vol] 8.7 mg/dL Normal 8.4-10.2 [facility] Comment on above: Performed By: #### L ABKaleb, LAB17, [id number] ####Marketing Project Manager: REINIER ZHU ([phone])[facility] [place] ([facility])[address] Chloride [Moles/Vol] 100 mmol/L Normal 98-107 [facility] Comment on above: Performed By: #### L ABKaleb, LAB17, [id number] ####Marketing Project Manager: REINIER ZHU ([phone])[facility] ([facility])[address] [place] [address] [place] CO2 [Moles/Vol] 22 mmol/L Normal 22-29 [facility] Comment on above: Performed By: #### L AB113, LAB17, [id number] ####Marketing Project Manager: REINIER ZHU ([phone])[facility]ITAL[facility] ([facility])[address] Creatinine [Mass/Vol] 0.66 mg/dL Low 0.72-1.25 [facility] Comment on above: Performed By: #### L AB113, LAB17, [id number] ####Marketing Project Manager: REINIER ZHU ([phone])[facility]ITALChika LOPEZBANNER [facility] ([facility])[address] GLOMERULAR FILTRATION RATE ML/MIN/1.73 SQ M.PREDICTED >90.0 Normal >60.0 [facility] Comment on above: Result Comment: Calc ulation based on the Chronic Kidney Disease Epidemiology Collaboration (CKD-EPI) equation refit without adjustment for race Performed By: #### L ABKaleb, LAB17, QCW857 ####Marketing Project Manager: REINIER ZHU ([phone])[facility]ITALChika LOPEZBAN[facility] ([facility])[address] Glucose [Mass/Vol] 100 mg/dL Normal 74-100 [facility] Comment on above: Performed By: #### L AB113, LAB17, [id number] ####Marketing Project Manager: REINIER ZHU ([phone])[facility]ITALChika LOPEZBAN[facility] ([facility])[address] Potassium [Moles/Vol] 4.1 mmol/L Normal 3.5-5.1 [facility] Comment on above: Result Comment: [facility] potassium values may be up to 0.5 mmol/L lower than serum values. Performed By: #### L AB113, LAB17, [id number] ####Marketing Project Manager: REINIER ZHU ([phone])[facility]ITAL[facility] ([facility])[address] Protein [Mass/Vol] 6.3 g/dL Low 6.4-8.3 [facility] Comment on above: Performed By: #### L AB113, LAB17, OBN817 ####Marketing Project Manager: REINIER ZHU ([phone])[facility] ([facility])[address] Sodium [Moles/Vol] 132 mmol/L Low 136-145 [facility] Comment on above: Performed By: #### L AB113, LAB17, ECQ681 ####Marketing Project Manager: REINIER OVIEDOVINAYAK ([phone])[facility] ([facility])[address] Urea nitrogen [Mass/Vol] 6 mg/dL Low 9-23 [facility] Comment on above: Performed By: #### Jose Carlos AB113, LAB17, JMC730 ####Marketing Project Manager: REINIER MORINROGER ([phone])[facility] ([facility])[address] [place] [address] Comprehensive metabolic 1998 panelon 04-11-2024 Albumin [Mass/Vol] 3.5 g/dL 3.5 - 5.0 g/dL [facility] ALP [Catalytic activity/Vol] 82 U/L 40 - 150 U/L [facility] ALT [Catalytic activity/Vol] 122 U/L High [facility] - 40 U/L [facility] Anion gap [Moles/Vol] 10 mmol/L 3 - 13 mmol/L [facility] AST [Catalytic activity/Vol] 73 U/L High [facility] - 34 U/L [facility] Bilirubin [Mass/Vol] 0.7 mg/dL [facility] - 1.2 mg/dL [facility] Calcium [Mass/Vol] 8.7 mg/dL 8.4 - 10. 2 mg/dL [facility] Chloride [Moles/Vol] 100 mmol/L 98 - 10 7 mmol/L [facility] CO2 [Moles/Vol] 22 mmol/L 22 - 29 mmol/L [facility] Creatinine [Mass/Vol] 0.66 mg/dL Low 0.72 - 1.25 mg/dL [facility] GFR/1.73 sq M.predicted (S/P/Bld) [Vol rate/Area] - PINF [facility] Comment on above: Calculation based on the Chronic Kidney Disease Epidemiology Collaboration (CKD-EPI) equation refit without adjustment for race Glucose [Mass/Vol] 100 mg/dL 74 - 100 mg/dL [facility] Interpretation and review of laboratory results Abnormal [facility] Potassium [Moles/Vol] 4.1 mmol/L 3.5 - 5.1 mmol/L [facility] Comment on above: Plasma potassium juan ues may be up to 0.5 mmol/L lower than serum values. Protein [Mass/Vol] 6.3 g/dL Low 6.4 - 8.3 g/dL [facility] Sodium [Moles/Vol] 132 mmol/L Low 136 - 145 mmol/L [facility] Urea nitrogen [Mass/Vol] 6 mg/dL Low 9 - 23 mg/dL [facility] Laboratory - Chemistry and C hemistry - challengeon 04-11-2024 Magnesium [Mass/Vol] 1.8 mg/dL 1.6 - 2 .6 mg/dL [facility] MAGNESIUMon 04-11-2024 Magnesium [Mass/Vol] 1.8 mg/dL Normal 1.6-2.6 [facility] Comment on above: Result Comment: [place] Lagunas COMMENTS:Higher values can be expected in females during menses. Performed By: #### L AB113, LAB17, [id number] ####Marketing Project Manager: REINIER ZHU ([phone])[facility] ([facility])[address] [place] [address] Magnesium [Mass/Vol]on 04-11 Higher values can be expected in females during menses. [facility] No Panel Informationon 04-11 Interpretation and review of laboratory results Normal [facility] PHOSPHORUSon 04-11-2024 Phosphate [Mass/Vol] 3.7 mg/dL Normal 2.3-4.7 [facility] Comment on above: Performed By: #### L AB113, LAB17, [id number] ####Marketing Project Manager: REINIER ZHU ([phone])[facility] ([facility])[address] [place] [address] Phosphate [Moles/Vol]on 04-01 Phosphate [Mass/Vol] 3.7 mg/dL 2.3 - 4 .7 mg/dL [facility] Progress Noteon 04-11-2024 Progress Note Normal [facility] Progress Note Normal [facility] Progress Note Normal [facility] Consulton 04-10-2024 Consult Normal [facility] ED Nursing Noteon 04-10-2024 ED Nursing Note Pt sleeping Normal [facility] ED Nursing Note Pt sleeping Normal [facility] ED Nursing Note Pt sleeping Normal [facility] ED Nursing Note Pt sleeping Normal [facility] Laboratory - Drug toxicology Ordered By: Lisa News on 04-10-2024 Amphetamines Ql (U) Negative Negative [facility] Barbiturates screen method Nom (U) Negative Negative [facility] Benzodiazepines screen method Nom (U) Negative Negative [facility] Cocaine Ql (U) Negative Negative [facility] Methadone Ql (U) Negative Negative [facility] Opiates Screen Ql (U) Negative Negative [facility] No Panel InformationOrdered By: Lisa Urbas on 04-10-2024 OXYCODONE/OXYMORPHONE Negative Negative [facility] PCP Negative Negative [facility] The expected value for the drugs listed [...] treatment only. Analysis performed using non-forensic procedures. [facility] Nursing Noteon 04-10-2024 Nursing Note Pt refusing to let R N put side rail of ED stretcher up. Pt educated on seizure precautions and dangers with withdrawls. Pt still refusing. Will continue to monitor. Normal [facility] CBC W Auto Differential pane l (Bld)on 04-09-2024 Basophils (Bld) [#/Vol] 0.1 10*3/uL 0.0 - 0.2 10*3/uL [facility] Basophils/100 WBC (Bld) 1.4 % 0.0 - 2.0 % [facility] Eosinophils (Bld) [#/Vol] 0.1 10*3/uL 0.0 - 0.5 10*3/uL [facility] Eosinophils/100 WBC (Bld) 2.3 % 0.0 - 6.0 % [facility] Erythrocyte distribution width (RBC) [Ratio] 13 % 11.5 - 15.0 % [facility] Hematocrit (Bld) [Volume fraction] 46.6 % 40.0 - 52.0 % [facility] Hemoglobin (Bld) [Mass/Vol] 16.2 g/dL 13.0 - 18.0 g/dL [facility] Immature granulocytes (Bld) [#/Vol] 0 10*3/uL NINF - 0.1 10*3/uL [facility] Immature granulocytes/100 WBC (Bld) 0.2 % 0.0 - 2.0 % [facility] Interpretation and review of laboratory results Abnormal [facility] Lymphocytes (Bld) [#/Vol] 1.7 10*3/uL 1.0 - 4.3 10*3/uL [facility] Lymphocytes/100 WBC (Bld) 38.4 % 15.0 - 45.0 % [facility] MCH (RBC) [Entitic mass] 33.1 pg 26.0 - 34.0 pg [facility] MCHC (RBC) [Mass/Vol] 34.8 % 30.5 - 36.0 % [facility] MCV (RBC) [Entitic vol] 95.3 fL 77.0 - 99.0 fL [facility] Monocytes (Bld) [#/Vol] 0.6 10*3/uL 0.0 - 0.9 10*3/uL [facility] Monocytes/100 WBC (Bld) 13.9 % High 5.0 - 13.0 % [facility] Neutrophils (Bld) [#/Vol] 1.9 10*3/uL 1.8 - 7.5 10*3/uL [facility] Neutrophils/100 WBC (Bld) 43.8 % 38.0 - 82.0 % [facility] Nucleated RBC/100 WBC (Bld) [Ratio] 0 % [facility] Platelet mean volume (Bld) [Entitic vol] 8.8 fL Low 9.0 - 12.7 fL [facility] Platelets (Bld) [#/Vol] 214 10*3/uL 140 - 440 10*3/uL [facility] RBC (Bld) [#/Vol] 4.89 10*6/uL 4.40 - 5.90 10*6/uL [facility] WBC (Bld) [#/Vol] 4.4 10*3/uL 3.6 - 10.7 10*3/uL [facility] CBC WITH AUTO DIFFERENTIALon 04-09-2024 Basophils (Bld) [#/Vol] 0.1 10*3/uL Normal 0.0-0.2 [facility] Comment on above: Performed By: #### L [id number] ####Marketing Project Manager: REINIER ZHU ([phone])[facility] [place] (SBAB)[address] [place] [address] Basophils/100 WBC (Bld) 1.4 % Normal 0.0-2.0 [facility] Comment on above: Performed By: #### L [id number] ####Marketing Project Manager: REINIER ZHU ([phone])[facility] [place] (SBHLAB)[address] [place] [address] Eosinophils (Bld) [#/Vol] 0.1 10*3/uL Normal 0.0-0.5 [facility] Comment on above: Performed By: #### L [id number] ####Marketing Project Manager: REINIER ZHU ([phone])[facility] [place] (SBHLAB)[address] [place] [address] Eosinophils/100 WBC (Bld) 2.3 % Normal 0.0-6.0 [facility] Comment on above: Performed By: #### L [id number] ####Marketing Project Manager: REINIER ZHU ([phone])[facility] [place] (SBHLAB)[address] [place] [address] Erythrocyte distribution width (RBC) [Ratio] 13.0 % Normal 11.5-15.0 [facility] Comment on above: Performed By: #### L [id number] ####Marketing Project Manager: REINIER ZHU ([phone])[facility] [place] (SBHLAB)[address] Hematocrit (Bld) [Volume fraction] 46.6 % Normal 40.0-52.0 [facility] Comment on above: Performed By: #### L [id number] ####Marketing Project Manager: REINIER ZHU ([phone])[facility] ([facility])[address] Hemoglobin (Bld) [Mass/Vol] 16.2 g/dL Normal 13.0-18.0 [facility] Comment on above: Performed By: #### L [id number] ####Marketing Project Manager: REINIER ZHU ([phone])[facility] [place] (SBHLAB)[address] IMMATURE GRANS % 0.2 % Normal 0.0-2.0 [facility] Comment on above: Performed By: #### L [id number] ####Marketing Project Manager: REINIER ZHU ([phone])[facility] ([facility])[address] [place] [address] IMMATURE GRANS ABSOLUTE 0.0 10*3/uL Normal <0.1 [facility] Comment on above: Performed By: #### L [id number] ####Marketing Project Manager: REINIER ZHU ([phone])[facility] (SBHLAB)[address] [place] [address] Lymphocytes (Bld) [#/Vol] 1.7 10*3/uL Normal 1.0-4.3 [facility] Comment on above: Performed By: #### L [id number] ####Marketing Project Manager: REINIER ZHU ([phone])[facility] [place] (SBHLAB)[address] [place] [address] [place] Lymphocytes/100 WBC (Bld) 38.4 % Normal 15.0-45.0 [facility] Comment on above: Performed By: #### L [id number] ####Marketing Project Manager: REINIER ZUH ([phone])[facility] [place] (SBHLAB)[address] MCH (RBC) [Entitic mass] 33.1 pg Normal 26.0-34.0 [facility] Comment on above: Performed By: #### L [id number] ####Marketing Project Manager: REINIER ZHU ([phone])[facility] [place] (SBHLAB)[address] MCHC 34.8 % Normal 30.5-36.0 [facility] Comment on above: Performed By: #### L [id number] ####Marketing Project Manager: REINIER ZHU ([phone])[facility] [place] (SBHLAB)[address] MCV (RBC) [Entitic vol] 95.3 fL Normal 77.0-99.0 [facility] Comment on above: Performed By: #### L [id number] ####Marketing Project Manager: REINIER ZHU ([phone])[facility] [place] (SBHLAB)[address] Monocytes (Bld) [#/Vol] 0.6 10*3/uL Normal 0.0-0.9 [facility] Comment on above: Performed By: #### L [id number] ####Marketing Project Manager: REINIER ZHU ([phone])[facility] [place] (SBHLAB)[address] Monocytes/100 WBC (Bld) 13.9 % High 5.0-13.0 [facility] Comment on above: Performed By: #### L [id number] ####Marketing Project Manager: REINIER ZHU ([phone])[facility] [place] (SBHLAB)[address] NEUTROPHILS ABSOLUTE 1.9 10*3/uL Normal 1.8-7.5 [facility] Comment on above: Performed By: #### L [id number] ####Marketing Project Manager: REINIER ZHU ([phone])[facility] [place] (SBHL[facility])[address] Neutrophils/100 WBC (Bld) 43.8 % Normal 38.0-82.0 [facility] Comment on above: Performed By: #### L [id number] ####Marketing Project Manager: REINIER ZHU ([phone])[facility] [place] (SBHLAB)[address] NRBC 0.0 /100 WBCs Normal 0.0-2.0 [facility] Comment on above: Performed By: #### L [id number] ####Marketing Project Manager: REINIER ZHU ([phone])[facility] [place] (SBHL[facility])[address] Platelet mean volume (Bld) [Entitic vol] 8.8 fL Low 9.0-12.7 [facility] Comment on above: Performed By: #### L [id number] ####Marketing Project Manager: REINIER ZHU ([phone])[facility] [place] (SBHLAB)[address] [place] [address] [place] Platelets (Bld) [#/Vol] 214 10*3/uL Normal 140-440 [facility] Comment on above: Performed By: #### L [id number] ####Marketing Project Manager: REINIER ZHU ([phone])[facility] [place] (SBHL[facility])[address] [place] [address] [place] RBC (Bld) [#/Vol] 4.89 10*6/uL Normal 4.40-5.90 [facility] Comment on above: Performed By: #### L [id number] ####Marketing Project Manager: REINIER ZHU ([phone])[facility] [place] (SBHL[facility])[address] [place] [address] [place] WBC (Bld) [#/Vol] 4.4 10*3/uL Normal 3.6-10.7 [facility] Comment on above: Performed By: #### L [id number] ####Marketing Project Manager: REINIER ZHU ([phone])[facility] [place] (SBHLAB)[address] COMPLETE URINALYSISon 2024 BILIRUBIN, TOTAL PRESENCE IN URINE Negative Normal Negative [facility] Comment on above: Performed By: #### L [id number] ####Marketing Project Manager: REINIER ZHU ([phone])[facility] (SBHLAB)[address] Clarity (U) Clear Normal Clear [facility] Comment on above: Performed By: #### L [id number] ####Marketing Project Manager: REINIER ZHU ([phone])[facility] (HLAB)[address] Color (U) Light Yellow Normal Lt. Yellow [facility] Comment on above: Performed By: #### L [id number] ####Marketing Project Manager: REINIER ZHU ([phone])[facility] ([facility])[address] GLUCOSE (MG/DL) IN URINE Normal Normal Normal (<70) [facility] Comment on above: Performed By: #### L [id number] ####Marketing Project Manager: REINIER ZHU ([phone])[facility] HEMOGLOBIN PRESENCE IN URINE Negative Normal Negative [facility] Comment on above: Performed By: #### L [id number] ####Marketing Project Manager: REINIER ZHU ([phone])[facility] Ketones Ql (U) Negative Normal Negative [facility] Comment on above: Performed By: #### L [id number] ####Marketing Project Manager: REINIER ZHU ([phone])[facility] LEUKOCYTE ESTERASE PRESENCE IN URINE BY TEST STRIP Negative Normal Negative [facility] Comment on above: Performed By: #### L [id number] ####Marketing Project Manager: REINIER ZHU ([phone])[facility] LOPEZGHADA (SBHLAB)[address] NITRITE PRESENCE IN URINE Negative Normal Negative [facility] Comment on above: Performed By: #### L [id number] ####Marketing Project Manager: REINIER ZHU ([phone])[facility] [place] (SBHLAB)[address] pH (U) 5.5 [pH] Normal 5.0-8.0 [facility] Comment on above: Performed By: #### L [id number] ####Marketing Project Manager: RENIIER ZHU ([phone])[facility] (SBHLAB)[address] Protein (U) [Mass/Vol] Negative Normal Negative [facility] Comment on above: Performed By: #### L [id number] ####Marketing Project Manager: REINIER ZHU ([phone])[facility] (HLAB)[address] Specific gravity (U) [Rel density] 1.010 Normal 1.005-1.03 0 [facility] Comment on above: Performed By: #### L [id number] ####Marketing Project Manager: REINIER ZHU ([phone])[facility] UROBILINOGEN (MG/DL) IN URINE Normal Normal Normal (0-1) [facility] Comment on above: Performed By: #### L [id number] ####Marketing Project Manager: REINIER ZHU ([phone])[facility] (SBHLAB)[address] COMPREHENSIVE METABOLIC PANE Arnulfo 04-09-2024 Albumin [Mass/Vol] 3.9 g/dL Normal 3.5-5.0 [facility] Comment on above: Performed By: #### L AB46, LAB99, LAB17, [id number] ####Marketing Project Manager: REINIER ZHU ([phone])[facility] [place] (SBHLAB)[address] ALP [Catalytic activity/Vol] 94 U/L Normal 40-150 [facility] Comment on above: Performed By: #### L AB46, LAB99, LAB17, [id number] ####Marketing Project Manager: REINIER ZHU ([phone])[facility] [place] (SBHLAB)[address] [place] [address] [place] ALT [Catalytic activity/Vol] 189 U/L High <40 [facility] Comment on above: Performed By: #### L AB46, LAB99, LAB17, HER933 ####Marketing Project Manager: REINIER ZHU ([phone])[facility] (SBHLAB)[address] Anion gap [Moles/Vol] 11 mmol/L Normal 3-13 [facility] Comment on above: Performed By: #### L AB46, LAB99, LAB17, [id number] ####Marketing Project Manager: REINIER ZHU ([phone])[facility] (SBHLAB)[address] [place] [address] [place] AST [Catalytic activity/Vol] 136 U/L High <34 [facility] Comment on above: Performed By: #### L AB46, LAB99, LAB17, [id number] ####Marketing Project Manager: REINIER ZHU ([phone])[facility] (SBHLAB)[address] Bilirubin [Mass/Vol] 0.5 mg/dL Normal <1.2 [facility] Comment on above: Performed By: #### L AB46, LAB99, LAB17, [id number] ####Marketing Project Manager: REINIER ZHU ([phone])[facility] (SBHLAB)[address] Calcium [Mass/Vol] 8.9 mg/dL Normal 8.4-10.2 [facility] Comment on above: Performed By: #### L AB46, LAB99, LAB17, [id number] ####Marketing Project Manager: REINIER ZHU ([phone])[facility] (SBHLAB)[address] [place] [address] [place] Chloride [Moles/Vol] 99 mmol/L Normal 98-107 [facility] Comment on above: Performed By: #### L AB46, LAB99, LAB17, RUT526 ####Marketing Project Manager: REINIER ZHU ([phone])[facility]ITAL[facility] WEBBERAnum (SBHLAB)[address] [place] [address] [place] CO2 [Moles/Vol] 25 mmol/L Normal 22-29 [facility] Comment on above: Performed By: #### L AB46, LAB99, LAB17, [id number] ####Marketing Project Manager: REINIER ZHU ([phone])[facility]ITAL[facility] WEBBERAnum (SBHLAB)[address] Creatinine [Mass/Vol] 0.65 mg/dL Low 0.72-1.25 [facility] Comment on above: Performed By: #### L AB46, LAB99, LAB17, CEZ005 ####Marketing Project Manager: REINIER ZHU ([phone])[facility] WEBBERAn[facility] (SBHLAB)[address] GLOMERULAR FILTRATION RATE ML/MIN/1.73 SQ M.PREDICTED >90.0 Normal >60.0 [facility] Comment on above: Result Comment: Calc ulation based on the Chronic Kidney Disease Epidemiology Collaboration (CKD-EPI) equation refit without adjustment for race Performed By: #### L AB46, LAB99, LAB17, [id number] ####Marketing Project Manager: REINIER ZHU ([phone])[facility]ITAL[facility] WEBBERAnum (SBHLAB)[address] [place] [address] [place] Glucose [Mass/Vol] 91 mg/dL Normal 74-100 [facility] Comment on above: Performed By: #### L AB46, LAB99, LAB17, [id number] ####Marketing Project Manager: REINIER ZHU ([phone])[facility]ITAL[facility] LOPEZGHADA (SBHLAB)[address] [place] [address] [place] Potassium [Moles/Vol] 4.4 mmol/L Normal 3.5-5.1 [facility] Comment on above: Result Comment: [facility] potassium values may be up to 0.5 mmol/L lower than serum values. Performed By: #### L AB46, LAB99, LAB17, ENV650 ####Marketing Project Manager: REINIER ZHU ([phone])[facility] (SBHLAB)[address] Protein [Mass/Vol] 7.1 g/dL Normal 6.4-8.3 [facility] Comment on above: Performed By: #### L AB46, LAB99, LAB17, [id number] ####Marketing Project Manager: REINIER ZHU ([phone])[facility] (SBHL[facility])[address] Sodium [Moles/Vol] 135 mmol/L Low 136-145 [facility] Comment on above: Performed By: #### L AB46, LAB99, LAB17, [id number] ####Marketing Project Manager: REINIER ZHU ([phone])[facility] (SBHLAB)[address] Urea nitrogen [Mass/Vol] 5 mg/dL Low 9-23 [facility] Comment on above: Performed By: #### L AB46, LAB99, LAB17, [id number] ####Marketing Project Manager: REINIER ZHU ([phone])[facility] (SBHLAB)[address] Comprehensive metabolic 1998 panelon 04-09-2024 Albumin [Mass/Vol] 3.9 g/dL 3.5 - 5.0 g/dL [facility] ALP [Catalytic activity/Vol] 94 U/L 40 - 150 U/L [facility] ALT [Catalytic activity/Vol] 189 U/L High NINF - 40 U/L [facility] Anion gap [Moles/Vol] 11 mmol/L 3 - 13 mmol/L [facility] AST [Catalytic activity/Vol] 136 U/L High NINF - 34 U/L [facility] Bilirubin [Mass/Vol] 0.5 mg/dL NINF - 1.2 mg/dL [facility] Calcium [Mass/Vol] 8.9 mg/dL 8.4 - 10. 2 mg/dL [facility] Chloride [Moles/Vol] 99 mmol/L 98 - 10 7 mmol/L [facility] CO2 [Moles/Vol] 25 mmol/L 22 - 29 mmol/L [facility] Creatinine [Mass/Vol] 0.65 mg/dL Low 0.72 - 1.25 mg/dL [facility] GFR/1.73 sq M.predicted (S/P/Bld) [Vol rate/Area] - PINF [facility] Comment on above: Calculation based on the Chronic Kidney Disease Epidemiology Collaboration (CKD-EPI) equation refit without adjustment for race Glucose [Mass/Vol] 91 mg/dL 74 - 100 mg/dL [facility] Interpretation and review of laboratory results Abnormal [facility] Potassium [Moles/Vol] 4.4 mmol/L 3.5 - 5.1 mmol/L [facility] Comment on above: Plasma potassium juan ues may be up to 0.5 mmol/L lower than serum values. Protein [Mass/Vol] 7.1 g/dL 6.4 - 8.3 g/dL [facility] Sodium [Moles/Vol] 135 mmol/L Low 136 - 145 mmol/L [facility] Urea nitrogen [Mass/Vol] 5 mg/dL Low 9 - 23 mg/dL [facility] DRUGS OF ABUSEon 04-09-2024 AMPHETAMINE SCREEN Negative Normal [facility] Comment on above: Performed By: #### L [id number] ####Marketing Project Manager: REINIER ZHU ([phone])[facility] (SBHLAB)[address] [place] [address] BARBITURATES SCREEN Negative Normal [facility] Comment on above: Performed By: #### L [id number] ####Marketing Project Manager: REINIER ZHU ([phone])[facility] (SBHLAB)[address] [place] [address] BENZODIAZEPINE SCREEN Negative Normal [facility] Comment on above: Performed By: #### L [id number] ####Marketing Project Manager: REINIER ZHU ([phone])[facility] (SBHLAB)[address] COCAINE METAB. SCREEN Negative Normal [facility] Comment on above: Performed By: #### L [id number] ####Marketing Project Manager: REINIER ZHU ([phone])[facility] (HLAB)[address] FENTANYL SCREEN, UR QUAL Negative Normal [facility] Comment on above: Result [...] under separate order. Performed By: #### L [id number] ####Marketing Project Manager: REINIER ZHU ([phone])[facility] (HLAB)[address] METHADONE SCREEN Negative Normal [facility] Comment on above: Performed By: #### L [id number] ####Marketing Project Manager: REINIER ZHU ([phone])[facility] (HLAB)[address] OPIATES SCREEN Negative Normal [facility] Comment on above: Performed By: #### L [id number] ####Marketing Project Manager: REINIER ZHU ([phone])[facility] (HLAB)[address] OXYCODONE SCREEN Negative Normal [facility] Comment on above: Performed By: #### L [id number] ####Marketing Project Manager: REINIER ZHU ([phone])[facility] (SB[facility])[address] PHENCYCLIDINE SCREEN Negative Normal [facility] Comment on above: Performed By: #### L [id number] ####Marketing Project Manager: REINIER ZHU ([phone])[facility] (SBHLAB)[address] ECG 12-LEADon 04-09-2024 ECG 12-LEAD IMPRESSION: Sinus rhythm Borderline prolonged QT interval No significant changes from prior EKG Electronically Signed On 04-09-2024 22:41:09 EST by Kolby Whiteside Normal [facility] ED Nursing Noteon 04-09-2024 ED Nursing Note Patient seeking deto x from ETOH. 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 Analysis performed using non-forensic procedures. Performed By: #### L AB46, LAB99, LAB17, [id number] ####Marketing Project Manager: REINIER ZHU ([phone])[facility] (SBHLAB)[address] Ethanol (Bld) [Mass/Vol]Orde red By: Johnathan Giron on 04-09-2024 Ethanol [Mass/Vol] 334 mg/dL Critically high NINF - 10 mg/dL [facility] Interpretation and review of laboratory results Abnormal [facility] FOLDER TAPER OPERATOR depression is se en >100 mg/dL. NOTE: This result is for medical treatment only. Analysis performed using non-forensic procedures. [facility] LIPASEon 04-09-2024 Lipase [Catalytic activity/Vol] 44 U/L Normal <55 [facility] Comment on above: Performed By: #### L AB46, LAB99, LAB17, [id number] ####Marketing Project Manager: REINIER ZHU ([phone])[facility] (SBHLAB)[address] Laboratory - Chemistry and C hemistry - challengeon 04-09-2024 Lipase [Catalytic activity/Vol] 44 U/L NINF - 55 U/L [facility] Magnesium [Mass/Vol] 2 mg/dL 1.6 - 2 .6 mg/dL [facility] Laboratory - Drug toxicology on 04-09-2024 Amphetamines Screen method >1000 ng/mL Ql (U) Negative [facility] Barbiturates Screen method >200 ng/mL Ql (U) Negative [facility] Benzodiazepines Ql (U) Negative [facility] Methadone Screen Ql (U) Negative [facility] Opiates Screen Ql (U) Negative [facility] oxyCODONE Ql (U) Negative [facility] Phencyclidine Ql (U) Negative [facility] Laboratory - Microbiology an d Antimicrobial susceptibilityOrdered By: Jacqueline Smith on 04-09-2024 SARS-CoV-2 (COVID-19) Ag IA.rapid Ql (Resp) Negative Negative [facility] Comment on above: A negative result do es not rule out the possibility of SARS-CoV-2 infection. NAAT-based methods should be considered for symptomatic patients presenting greater than seven days after onset of symptoms. Method: Lateral flow immunoassay. Fact sheets for healthcare providers and patients can be found at the following sites: https://www.fda.gov/media/945905/download https://www.fda.gov/media/535843/download MAGNESIUMon 04-09-2024 Magnesium [Mass/Vol] 2.0 mg/dL Normal 1.6-2.6 [facility] Comment on above: Result Comment: [place] COMMENTS:Higher values can be expected in females during menses. Performed By: #### L AB46, LAB99, LAB17, [id number] ####Marketing Project Manager: REINIER ZHU ([phone])[facility] (SBHLAB)[address] Magnesium [Mass/Vol]on 04-09 Higher values can be expected in females during menses. [facility] No Panel Informationon 04-09 COCAINE METAB. SCREEN Negative [facility] FENTANYL SCREEN, UR QUAL Negative [facility] The expected value f or [...] is needed, request confirmation under separate order. [facility] P [place] 65 degrees [facility] TX Interval 162 ms [facility] QRS [place] 59 degrees [facility] QRSD Interval 96 ms [facility] QT Interval 409 ms [facility] QTC Interval 493 ms [facility] T Wave [place] 44 degrees [facility] Sinus rhythm Borderline prolonged QT interval No significant changes from prior EKG Electronically Signed On 04-09-2024 22:41:09 EST by Kolby Little DO - 04/10/2024 IMPRESSION: Sinus rhythm Borderline prolonged QT interval No significant changes from prior EKG Electronically Signed On 04-09-2024 22:41:09 EST by Kolby Whiteside [facility] Interpretation and review of laboratory results Normal [facility] SARS-COV-2 ANTIGENon 025 SARS-COV-2 ANTIGEN Normal [facility] Comment on above: Performed By: #### L [id number] ####Marketing Project Manager: REINIER ZHU ([phone])[facility] ([facility])[address] [place] [address] SARS-CoV-2 (COVID-19) Ag IA. rapid Ql (Resp)Ordered By: Jacqueline Smith on 04-09-2024 Interpretation and review of laboratory results Normal [facility] UNCONFIRMED DRUG SCREENon Amphetamines Ql (U) Negative Normal Negative [facility] Comment on above: Performed By: #### L [id number] ####Marketing Project Manager: CECI DUPREE ([phone])[facility] ([facility])[address] [place] [address] BARBITURATES Negative Normal Negative [facility] Comment on above: Performed By: #### L [id number] ####Marketing Project Manager: CECI DUPREE ([phone])[facility] ([facility])[address] [place] [address] Benzodiazepines Ql (U) Negative Normal Negative [facility] Comment on above: Performed By: #### L [id number] ####Marketing Project Manager: CECI DUPREE ([phone])[facility] ([facility])[address] [place] [address] Cocaine Ql (U) Negative Normal Negative [facility] Comment on above: Performed By: #### L [id number] ####Marketing Project Manager: CECI DUPREE ([phone])[facility] ([facility])[address] [place] [place] [address] Methadone Ql (U) Negative Normal Negative [facility] Comment on above: Performed By: #### L [id number] ####Marketing Project Manager: CECI DUPREE ([id number])[facility] ([facility])[address] [place] [address] Opiates Ql (U) Negative Normal Negative [facility] Comment on above: Performed By: #### L [id number] ####Marketing Project Manager: CECI DUPREE ([phone])[facility] [place] ([facility])[address] [place] [address] OXYCODONE/OXYMORPHONE Negative Normal Negative [facility] Comment on above: Performed By: #### L [id number] ####Marketing Project Manager: CECI DUPREE ([phone])[facility] ([facility])[address] [place] [address] PCP Negative Normal Negative [facility] Comment on above: Result [...] using non-forensic procedures. Performed By: #### L [id number] ####Marketing Project Manager: CCEI DUPREE ([phone])[facility] [place] ([facility])[address] [place] [address] Urinalysis complete panel (U )on 04-09-2024 Bilirubin Ql (U) Negative Negative mg/dL [facility] Clarity (U) Clear Clear [facility] Color (U) Light Yellow Lt. Yellow [facility] Glucose Ql (U) Normal Normal (<70) mg/dL [facility] Hemoglobin Ql (U) Negative Negative mg/dL [facility] Interpretation and review of laboratory results Normal [facility] Ketones (U) [Mass/Vol] Negative Negat shiv mg/dL [facility] Leukocyte esterase Test strip Ql (U) Negative Negative Estefani/uL [facility] Nitrite Ql (U) Negative Negative [facility] pH (U) 5.5 [pH] 5.0 - 8.0 pH [facility] Protein (U) [Mass/Vol] Negative Negat shiv mg/dL [facility] Specific gravity (U) [Rel density] 1.01 1.005 - 1.030 [facility] Urobilinogen (U) [Mass/Vol] Normal Normal (0-1) mg/dL [facility] Vital signson 04-09-2024 Heart rate 87 /min bpm [facility] 37on 02-28-2024 37 Normal [facility] Progress Noteon 02-28-2024 Progress Note Normal [facility] Progress Noteon 02-18-2024 Progress Note Normal [facility] 36on 02-14-2024 36 I was able to speak with patient, I notified him of the results, and provided him with the number to the clinic so he can call to set up an appointment. [facility] as well to has access to that way. Normal [facility] 36on 02-13-2024 36 Normal [facility] 36 Normal [facility] 36 error Normal [facility] CT LUNG SCREENING LOW DOSEon 02-13-2024 CT LUNG SCREENING LOW DOSE Normal [facility] 36on 02-06-2024 36 Seen yesterday No future appt Normal [facility] 36 06/26/23 last filled Seen yesterday. No future appt set up Normal [facility] Progress Noteon 02-05-2024 Progress Note Normal [facility] Progress Noteon 01-28-2024 Progress Note Normal [facility] 30on 01-24-2024 30 Normal [facility] [id number] 01-24-2024 [id number] Normal [facility] Nursing Noteon 01-24-2024 Nursing Note Normal [facility] Nursing Note Patient up, social w ith peers with appropriate behavior. Patient takes medication with ease. Patient encouraged to make needs known. Normal [facility] 30on 01-23-2024 30 Normal [facility] Nursing Noteon 01-23-2024 Nursing Note Normal [facility] Nursing Note Patient is up and [facility], seen in group room socializing. Pt is cooperative and med compliant. Pt denies SI/HI/AVH. Pt encouraged to notify staff for any questions and concerns. Normal [facility] Progress Noteon 01-23-2024 Progress Note Normal [facility] [id number] 01-22-2024 [id number] Normal [facility] 94on 01-22-2024 94 Normal [facility] COMPREHENSIVE METABOLIC PANE Arnulfo 01-22-2024 Albumin [Mass/Vol] 3.9 g/dL Normal 3.5-5.0 [facility] Comment on above: Performed By: #### L [id number] ####Marketing Project Manager: CECI DUPREE ([phone])[facility] ([address] ALP [Catalytic activity/Vol] 77 U/L Normal 38-126 [facility] Comment on above: Performed By: #### L [id number] ####Marketing Project Manager: CECI DUPREE ([phone])[facility] ([facility])[address] [place] [address] ALT [Catalytic activity/Vol] 75 U/L High 0-49 [facility] Comment on above: Performed By: #### L [id number] ####Marketing Project Manager: CECI DUPREE ([phone])[facility] [place] [address] Anion gap [Moles/Vol] 5 mmol/L Normal 3-13 [facility] Comment on above: Performed By: #### L [id number] ####Marketing Project Manager: CECI DUPREE ([phone])[facility] ([facility])[address] [place] [address] AST [Catalytic activity/Vol] 58 U/L High 15-46 [facility] Comment on above: Performed By: #### L [id number] ####Marketing Project Manager: CECI DUPREE ([phone])[facility] ([facility])[address] [place] [address] Bilirubin [Mass/Vol] 0.7 mg/dL Normal 0.2-1.3 [facility] Comment on above: Performed By: #### L [id number] ####Marketing Project Manager: CECI DUPREE ([phone])[facility] ([facility])[address] [place] [address] Calcium [Mass/Vol] 8.9 mg/dL Normal 8.4-10.4 [facility] Comment on above: Performed By: #### L [id number] ####Marketing Project Manager: CECI DUPREE ([phone])[facility] ([facility])[address] [place] [address] [place] Chloride [Moles/Vol] 96 mmol/L Low 98-107 [facility] Comment on above: Performed By: #### L [id number] ####Marketing Project Manager: CECI DUPREE ([phone])[facility] ([facility])[address] [place] [address] [place] CO2 [Moles/Vol] 29 mmol/L Normal 22-30 [facility] Comment on above: Performed By: #### L [id number] ####Marketing Project Manager: CECI DUPREE ([phone])[facility])[address] [place] [address] Creatinine [Mass/Vol] 0.61 mg/dL Low 0.66-1.25 [facility] Comment on above: Performed By: #### L [id number] ####Marketing Project Manager: CECI DUPREE ([phone])[facility])[address] [place] [address] GLOMERULAR FILTRATION RATE ML/MIN/1.73 SQ M.PREDICTED >90.0 Normal >60.0 [facility] Comment on above: Result Comment: Calc ulation based on the Chronic Kidney Disease Epidemiology Collaboration (CKD-EPI) equation refit without adjustment for race Performed By: #### L [id number] ####Marketing Project Manager: CECI DUPREE ([phone])[facility])[address] [place] [address] Glucose [Mass/Vol] 98 mg/dL Normal 70-100 [facility] Comment on above: Performed By: #### L [id number] ####Marketing Project Manager: CECI DUPREE ([phone])[facility])[address] [place] [address] Potassium [Moles/Vol] 4.0 mmol/L Normal 3.5-5.1 [facility] Comment on above: Performed By: #### L [id number] ####Marketing Project Manager: CECI DUPREE ([phone])[facility])[address] [place] [address] Protein [Mass/Vol] 6.6 g/dL Normal 6.3-8.2 [facility] Comment on above: Performed By: #### L [id number] ####Marketing Project Manager: CECI DUPREE ([phone])[facility])[address] [place] [address] Sodium [Moles/Vol] 130 mmol/L Low 135-145 [facility] Comment on above: Performed By: #### L [id number] ####Marketing Project Manager: CECI DUPREE ([phone])[facility])[address] [place] [address] Urea nitrogen [Mass/Vol] 7 mg/dL Low 9-20 [facility] Comment on above: Performed By: #### L [id number] ####Marketing Project Manager: CECI DUPREE ([phone])[facility])[address] [place] [address] Comprehensive metabolic 1998 panelon 01-22-2024 Albumin [Mass/Vol] 3.9 g/dL 3.5 - 5.0 g/dL [facility] ALP [Catalytic activity/Vol] 77 U/L 38 - 126 U/L [facility] ALT [Catalytic activity/Vol] 75 U/L High 0 - 49 U/L [facility] Anion gap [Moles/Vol] 5 mmol/L 3 - 13 mmol/L [facility] AST [Catalytic activity/Vol] 58 U/L High 15 - 46 U/L [facility] Bilirubin [Mass/Vol] 0.7 mg/dL 0.2 - 1 .3 mg/dL [facility] Calcium [Mass/Vol] 8.9 mg/dL 8.4 - 10. 4 mg/dL [facility] Chloride [Moles/Vol] 96 mmol/L Low 98 - 10 7 mmol/L [facility] CO2 [Moles/Vol] 29 mmol/L 22 - 30 mmol/L [facility] Creatinine [Mass/Vol] 0.61 mg/dL Low 0.66 - 1.25 mg/dL [facility] GFR/1.73 sq M.predicted (S/P/Bld) [Vol rate/Area] - PINF [facility] Comment on above: Calculation based on the Chronic Kidney Disease Epidemiology Collaboration (CKD-EPI) equation refit without adjustment for race Glucose [Mass/Vol] 98 mg/dL 70 - 100 mg/dL [facility] Interpretation and review of laboratory results Abnormal [facility] Potassium [Moles/Vol] 4 mmol/L 3.5 - 5.1 mmol/L [facility] Protein [Mass/Vol] 6.6 g/dL 6.3 - 8.2 g/dL [facility] Sodium [Moles/Vol] 130 mmol/L Low 135 - 145 mmol/L [facility] Urea nitrogen [Mass/Vol] 7 mg/dL Low 9 - 20 mg/dL [facility] Nursing Noteon 01-22-2024 Nursing Note Normal [facility] Progress Noteon 01-22-2024 Progress Note Nutrition rescreen completed. Chart reviewed. Patient to be monitored and followed by the diet is technician. Lamar Smith, DT Normal [facility] Progress Note Normal [facility] 30on 01-21-2024 30 The patient is Moder ately Stable - Low risk of patient condition declining or worsening The patient's goals for the shift include rest The clinical goals for the shift include comfort/safety [facility] [id number] 01-21-[id number] [facility] Nursing Noteon 01-21-2024 Nursing Note Patient is up and st madeleine, seen in group room. Pt is cooperative and med compliant. Pt is encouraged to notify staff for any questions and concerns. Normal [facility] Nursing Note Patient received PRN albuterol inhaler as per orders at 1112 for . Normal [facility] Nursing Note Patient received PRN respiratory TX from RT at 0915 with good results. 02 93 percent with no O2 Normal [facility] CBC W Auto Differential pane l (Bld)Ordered By: Jyotsna Peralta on 01-20-2024 Basophils (Bld) [#/Vol] 0 10*3/uL 0.0 - 0.2 10*3/uL [facility] Basophils/100 WBC (Bld) 0.5 % 0.0 - 2.0 % [facility] Eosinophils (Bld) [#/Vol] 0 10*3/uL 0.0 - 0.5 10*3/uL [facility] Eosinophils/100 WBC (Bld) 1 % 0.0 - 6.0 % [facility] Erythrocyte distribution width (RBC) [Ratio] 14.1 % 11.5 - 15.0 % [facility] Hematocrit (Bld) [Volume fraction] 46 % 40.0 - 52.0 % [facility] Hemoglobin (Bld) [Mass/Vol] 16.1 g/dL 13.0 - 18.0 g/dL [facility] Immature granulocytes (Bld) [#/Vol] 0 10*3/uL NINF - 0.1 10*3/uL [facility] Immature granulocytes/100 WBC (Bld) 0.5 % 0.0 - 2.0 % [facility] Interpretation and review of laboratory results Abnormal [facility] Lymphocytes (Bld) [#/Vol] 1.3 10*3/uL 1.0 - 4.3 10*3/uL [facility] Lymphocytes/100 WBC (Bld) 30.6 % 15.0 - 45.0 % [facility] MCH (RBC) [Entitic mass] 33 pg 26.0 - 34.0 pg [facility] MCHC (RBC) [Mass/Vol] 35 % 30.5 - 36.0 % [facility] MCV (RBC) [Entitic vol] 94.3 fL 77.0 - 99.0 fL [facility] Monocytes (Bld) [#/Vol] 0.6 10*3/uL 0.0 - 0.9 10*3/uL [facility] Monocytes/100 WBC (Bld) 14.2 % High 5.0 - 13.0 % [facility] Neutrophils (Bld) [#/Vol] 2.2 10*3/uL 1.8 - 7.5 10*3/uL [facility] Neutrophils/100 WBC (Bld) 53.2 % 38.0 - 82.0 % [facility] Nucleated RBC/100 WBC (Bld) [Ratio] 0 % [facility] Platelet mean volume (Bld) [Entitic vol] 8.8 fL Low 9.0 - 12.7 fL [facility] Platelets (Bld) [#/Vol] 156 10*3/uL 140 - 440 10*3/uL [facility] RBC (Bld) [#/Vol] 4.88 10*6/uL 4.40 - 5.90 10*6/uL [facility] WBC (Bld) [#/Vol] 4.2 10*3/uL 3.6 - 10.7 10*3/uL [facility] CBC WITH AUTO DIFFERENTIALon 01-20-2024 Basophils (Bld) [#/Vol] 0.0 10*3/uL Normal 0.0-0.2 [facility] Comment on above: Performed By: #### L [id number] ####Marketing Project Manager: REINIER ZHU ([phone])[facility] ([facility])[address] Basophils/100 WBC (Bld) 0.5 % Normal 0.0-2.0 [facility] Comment on above: Performed By: #### L [id number] ####Marketing Project Manager: REINIER ZHU ([id number])[facility] ([facility])[address] Eosinophils (Bld) [#/Vol] 0.0 10*3/uL Normal 0.0-0.5 [facility] Comment on above: Performed By: #### L [id number] ####Marketing Project Manager: REINIER ZHU ([phone])[facility] ([facility])[address] Eosinophils/100 WBC (Bld) 1.0 % Normal 0.0-6.0 [facility] Comment on above: Performed By: #### L [id number] ####Marketing Project Manager: REINIER ZHU ([phone])[facility] [place] ([facility])[address] Erythrocyte distribution width (RBC) [Ratio] 14.1 % Normal 11.5-15.0 [facility] Comment on above: Performed By: #### L [id number] ####Marketing Project Manager: REINIER ZHU ([phone])[facility] [place] ([facility])[address] [place] [address] Hematocrit (Bld) [Volume fraction] 46.0 % Normal 40.0-52.0 [facility] Comment on above: Performed By: #### L [id number] ####Marketing Project Manager: REINIER ZHU ([phone])[facility] [place] ([facility])[address] Hemoglobin (Bld) [Mass/Vol] 16.1 g/dL Normal 13.0-18.0 [facility] Comment on above: Performed By: #### L [id number] ####Marketing Project Manager: REINIER ZHU ([phone])[facility] ([facility])[address] IMMATURE GRANS % 0.5 % Normal 0.0-2.0 [facility] Comment on above: Performed By: #### L [id number] ####Marketing Project Manager: REINIER ZHU ([phone])[facility] ([facility])[address] IMMATURE GRANS ABSOLUTE 0.0 10*3/uL Normal <0.1 [facility] Comment on above: Performed By: #### L [id number] ####Marketing Project Manager: REINIER ZHU ([phone])[facility] [place] ([facility])[address] Lymphocytes (Bld) [#/Vol] 1.3 10*3/uL Normal 1.0-4.3 [facility] Comment on above: Performed By: #### L [id number] ####Marketing Project Manager: REINIER ZHU ([phone])[facility] [place] ([facility])[address] Lymphocytes/100 WBC (Bld) 30.6 % Normal 15.0-45.0 [facility] Comment on above: Performed By: #### L [id number] ####Marketing Project Manager: REINIER ZHU ([phone])[facility] [place] ([facility])[address] MCH (RBC) [Entitic mass] 33.0 pg Normal 26.0-34.0 [facility] Comment on above: Performed By: #### L [id number] ####Marketing Project Manager: REINIER ZHU ([phone])[facility] [place] ([facility])[address] MCHC 35.0 % Normal 30.5-36.0 [facility] Comment on above: Performed By: #### L [id number] ####Marketing Project Manager: REINIER ZHU ([phone])[facility] [place] ([facility])[address] MCV (RBC) [Entitic vol] 94.3 fL Normal 77.0-99.0 [facility] Comment on above: Performed By: #### L [id number] ####Marketing Project Manager: REINIER ZHU ([id number])[facility] ([facility])[address] Monocytes (Bld) [#/Vol] 0.6 10*3/uL Normal 0.0-0.9 [facility] Comment on above: Performed By: #### L [id number] ####Marketing Project Manager: REINIER ZHU ([phone])[facility] ([facility])[address] Monocytes/100 WBC (Bld) 14.2 % High 5.0-13.0 [facility] Comment on above: Performed By: #### L [id number] ####Marketing Project Manager: REINIER ZHU ([phone])[facility] [place] ([facility])[address] NEUTROPHILS ABSOLUTE 2.2 10*3/uL Normal 1.8-7.5 [facility] Comment on above: Performed By: #### L [id number] ####Marketing Project Manager: REINIER ZHU ([phone])[facility] [place] ([facility])[address] [place] [address] Neutrophils/100 WBC (Bld) 53.2 % Normal 38.0-82.0 [facility] Comment on above: Performed By: #### L [id number] ####Marketing Project Manager: REINIER ZHU ([phone])[facility] [place] ([facility])[address] [place] [address] [place] NRBC 0.0 /100 WBCs Normal 0.0-2.0 [facility] Comment on above: Performed By: #### L [id number] ####Marketing Project Manager: REINIER ZHU ([phone])[facility] [place] ([facility])[address] Platelet mean volume (Bld) [Entitic vol] 8.8 fL Low 9.0-12.7 [facility] Comment on above: Performed By: #### L [id number] ####Marketing Project Manager: REINIER ZHU ([phone])[facility] ([facility])[address] Platelets (Bld) [#/Vol] 156 10*3/uL Normal 140-440 [facility] Comment on above: Performed By: #### L [id number] ####Marketing Project Manager: REINIER ZHU ([phone])[facility] ([facility])[address] RBC (Bld) [#/Vol] 4.88 10*6/uL Normal 4.40-5.90 [facility] Comment on above: Performed By: #### L [id number] ####Marketing Project Manager: REINIER ZHU ([phone])[facility] ([facility])[address] WBC (Bld) [#/Vol] 4.2 10*3/uL Normal 3.6-10.7 [facility] Comment on above: Performed By: #### L [id number] ####Marketing Project Manager: REINIER ZHU ([phone])[facility] ([facility])[address] COMPREHENSIVE METABOLIC PANE Arnulfo 01-20-2024 Albumin [Mass/Vol] 4.3 g/dL Normal 3.5-5.0 [facility] Comment on above: Performed By: #### L AB17, LAB46 ####Marketing Project Manager: REINIER ZHU ([id number])[facility] ([facility])[address] ALP [Catalytic activity/Vol] 100 U/L Normal 38-126 [facility] Comment on above: Performed By: #### L AB17, LAB46 ####Marketing Project Manager: REINIER ZHU ([phone])[facility] ([facility])[address] ALT [Catalytic activity/Vol] 106 U/L High 0-49 [facility] Comment on above: Performed By: #### L AB17, LAB46 ####Marketing Project Manager: REINIER ZHU ([id number])[facility] ([facility])[address] Anion gap [Moles/Vol] 15 mmol/L High 3-13 [facility] Comment on above: Performed By: #### L AB17, LAB46 ####Marketing Project Manager: REINIER ZHU ([phone])[facility] [place] ([facility])[address] AST [Catalytic activity/Vol] 102 U/L High 15-46 [facility] Comment on above: Performed By: #### L AB17, LAB46 ####Marketing Project Manager: REINIER ZHU ([id number])[facility] [place] ([facility])[address] Bilirubin [Mass/Vol] 0.5 mg/dL Normal 0.2-1.3 [facility] Comment on above: Performed By: #### L AB17, LAB46 ####Marketing Project Manager: REINIER ZHU ([phone])[facility] [place] ([facility])[address] Calcium [Mass/Vol] 8.2 mg/dL Low 8.4-10.4 [facility] Comment on above: Performed By: #### L AB17, LAB46 ####Marketing Project Manager: REINIER ZHU ([phone])[facility] [place] ([facility])[address] [place] [address] [place] Chloride [Moles/Vol] 93 mmol/L Low 98-107 [facility] Comment on above: Performed By: #### L AB17, LAB46 ####Marketing Project Manager: REINIER ZHU ([phone])[facility] [place] ([facility])[address] CO2 [Moles/Vol] 26 mmol/L Normal 22-30 [facility] Comment on above: Performed By: #### L AB17, LAB46 ####Marketing Project Manager: REINIER ZHU ([id number])[facility] ([facility])[address] Creatinine [Mass/Vol] 0.59 mg/dL Low 0.66-1.25 [facility] Comment on above: Performed By: #### L AB17, LAB46 ####Marketing Project Manager: REINIER ZHU ([phone])[facility]ITAL[facility] ([facility])[address] GLOMERULAR FILTRATION RATE ML/MIN/1.73 SQ M.PREDICTED >90.0 Normal >60.0 [facility] Comment on above: Result Comment: Calc ulation based on the Chronic Kidney Disease Epidemiology Collaboration (CKD-EPI) equation refit without adjustment for race Performed By: #### L AB17, LAB46 ####Marketing Project Manager: REINIER ZHU ([phone])[facility] ([facility])[address] Glucose [Mass/Vol] 174 mg/dL High 70-100 [facility] Comment on above: Performed By: #### L AB17, LAB46 ####Marketing Project Manager: REINIER ZHU ([phone])[facility]ITAL[facility] [place] ([facility])[address] [place] [address] [place] Potassium [Moles/Vol] 4.1 mmol/L Normal 3.5-5.1 [facility] Comment on above: Performed By: #### L AB17, LAB46 ####Marketing Project Manager: REINIER ZHU ([id number])[facility] ([facility])[address] Protein [Mass/Vol] 7.3 g/dL Normal 6.3-8.2 [facility] Comment on above: Performed By: #### L AB17, LAB46 ####Marketing Project Manager: REINIER BATISTACER ([phone])[facility]ITALCh[facility] LOPEZMESILLA VALLEY HOSPITALN ([facility])[address] Sodium [Moles/Vol] 134 mmol/L Low 135-145 [facility] Comment on above: Performed By: #### L AB17, LAB46 ####Marketing Project Manager: REINIERJA ZHU ([id number])[facility] ([facility])[address] Urea nitrogen [Mass/Vol] 7 mg/dL Low 9-20 [facility] Comment on above: Performed By: #### L AB17, LAB46 ####Marketing Project Manager: RIENIERJA ZHU ([phone])[facility] ([facility])[address] Comprehensive metabolic 1998 panelon 01-20-2024 Albumin [Mass/Vol] 4.3 g/dL 3.5 - 5.0 g/dL [facility] ALP [Catalytic activity/Vol] 100 U/L 38 - 126 U/L [facility] ALT [Catalytic activity/Vol] 106 U/L High 0 - 49 U/L [facility] Anion gap [Moles/Vol] 15 mmol/L High 3 - 13 mmol/L [facility] AST [Catalytic activity/Vol] 102 U/L High 15 - 46 U/L [facility] Bilirubin [Mass/Vol] 0.5 mg/dL 0.2 - 1 .3 mg/dL [facility] Calcium [Mass/Vol] 8.2 mg/dL Low 8.4 - 10. 4 mg/dL [facility] Chloride [Moles/Vol] 93 mmol/L Low 98 - 10 7 mmol/L [facility] CO2 [Moles/Vol] 26 mmol/L 22 - 30 mmol/L [facility] Creatinine [Mass/Vol] 0.59 mg/dL Low 0.66 - 1.25 mg/dL [facility] GFR/1.73 sq M.predicted (S/P/Bld) [Vol rate/Area] - PINF [facility] Comment on above: Calculation based on the Chronic Kidney Disease Epidemiology Collaboration (CKD-EPI) equation refit without adjustment for race Glucose [Mass/Vol] 174 mg/dL High 70 - 100 mg/dL [facility] Interpretation and review of laboratory results Abnormal [facility] Potassium [Moles/Vol] 4.1 mmol/L 3.5 - 5.1 mmol/L [facility] Protein [Mass/Vol] 7.3 g/dL 6.3 - 8.2 g/dL [facility] Sodium [Moles/Vol] 134 mmol/L Low 135 - 145 mmol/L [facility] Urea nitrogen [Mass/Vol] 7 mg/dL Low 9 - 20 mg/dL [facility] DRUGS OF ABUSEon 01-20-2024 AMPHETAMINE SCREEN Negative Normal [facility] Comment on above: Performed By: #### L [id number] ####Marketing Project Manager: REINIER ZHU ([phone])[facility] ([facility])[address] [place] [address] BARBITURATES SCREEN Negative Normal [facility] Comment on above: Performed By: #### L [id number] ####Marketing Project Manager: REINIER HZU ([phone])[facility] [place] [address] BENZODIAZEPINE SCREEN Negative Normal [facility] Comment on above: Performed By: #### L [id number] ####Marketing Project Manager: REINIER ZHU ([phone])[facility] [place] [address] COCAINE METAB. SCREEN Negative Normal [facility] Comment on above: Performed By: #### L [id number] ####Marketing Project Manager: REINIER ZHU ([phone])[facility] [place] [address] METHADONE SCREEN Negative Normal [facility] Comment on above: Performed By: #### L [id number] ####Marketing Project Manager: REINIER ZHU ([phone])[facility] OPIATES SCREEN Negative Normal [facility] Comment on above: Performed By: #### L [id number] ####Marketing Project Manager: REINIER ZHU ([phone])[facility]ITAL[facility]ZBAN[facility] ([facility])[address] OXYCODONE SCREEN Negative Normal [facility] Comment on above: Performed By: #### L [id number] ####Marketing Project Manager: REINIER ZHU ([phone])[facility] VIRAJBAN[facility] ([facility])[address] PHENCYCLIDINE SCREEN Negative Normal [facility] Comment on above: Result Comment: ORDE [...] under separate order. Performed By: #### L [id number] ####Marketing Project Manager: REINIER ZHU ([phone])[facility] ([facility])[address] ECG 12-LEADon 01-20-2024 ECG 12-LEAD IMPRESSION: Sinus rhythm Consider anterior infarct Electronically Signed On 01-20-2024 19:55:10 EDT by Triston Abraham Normal [facility] ED Nursing Noteon 01-20-2024 ED Nursing Note Called in report to JAY Acevedo at [facility] 4W. Jacqueline Richardson RN 01/20/243 Normal [facility] ED Nursing Note Pt presents seeking alcohol detox. Last drink was right before leaving house. Drinks about 6-8 beers/day. Has been through detox in past. Has never had withdrawal seizures. Currently having anxiety, vomiting, palpitations Normal [facility] ED Provider Noteon ED Provider Note Normal [facility] ETHANOLon 01-20-2024 ETHANOL IN SER/PLAS 0.435 g/dL Critically high 0.000 -0.01 0 [facility] Comment on above: Result Comment: [place] Lagunas COMMENTS:NOTE: This result is for medical treatment only. Analysis performed using non-forensic procedures. Performed By: #### L [id number], [id number] ####Marketing Project Manager: REINIER ZHU ([phone])[facility] ([facility])[address] [place] [address] Ethanol (Bld) [Mass/Vol]Orde red By: Shellie Morel on 01-20-2024 Ethanol [Mass/Vol] 0.435 g/dL Critically high 0.000 - 0.010 g/dL [facility] Interpretation and review of laboratory results Abnormal [facility] Laboratory - Drug toxicology Ordered By: Nanette Elias on 01-20-2024 Amphetamines Screen method >1000 ng/mL Ql (U) Negative [facility] Barbiturates Screen method >200 ng/mL Ql (U) Negative [facility] Benzodiazepines Ql (U) Negative [facility] Methadone Screen Ql (U) Negative [facility] Opiates Screen Ql (U) Negative [facility] oxyCODONE Ql (U) Negative [facility] Phencyclidine Ql (U) Negative [facility] Laboratory - Microbiology an d Antimicrobial susceptibilityon 01-20-2024 SARS-CoV-2 (COVID-19) Ag IA.rapid Ql (Resp) Negative Negative [facility] Comment on above: A negative result do es not rule out the possibility of SARS-CoV-2 infection. NAAT-based methods should be considered for symptomatic patients presenting greater than seven days after onset of symptoms. Method: Lateral flow immunoassay. Fact sheets for healthcare providers and patients can be found at the following sites: https://www.fda.gov/media/675142/download https://www.fda.gov/media/718378/download No Panel Informationon 01-19 P [place] 50 degrees [facility] [place] Interval 166 ms [facility] QRS [place] 55 degrees [facility] QRSD Interval 97 ms [facility] QT Interval 367 ms [facility] QTC Interval 460 ms [facility] T Wave [place] 51 degrees [facility] Sinus rhythm Consider anterior infarct Electronically Signed On 01-20-2024 19:55:10 EDT by Triston Abraham CV Triston Lehman MD - 01/20/2024 IMPRESSION: Sinus rhythm Consider anterior infarct Electronically Signed On 01-20-2024 19:55:10 EDT by Triston Abraham [facility] No Panel InformationOrdered By: Nanette Elias on 01-20-2024 COCAINE METAB. SCREEN Negative [facility] The expected value f or all [...] is needed, request confirmation under separate order. [facility] Nursing Noteon 01-20-2024 Nursing Note Normal [facility] SARS-COV-2 ANTIGENon 024 SARS-COV-2 ANTIGEN Normal [facility] Comment on above: Performed By: #### L [id number] ####Marketing Project Manager: REINIER ZHU ([phone])[facility] ([facility])[address] [place] [address] SARS-CoV-2 (COVID-19) Ag IA. rapid Ql (Resp)on 01-20-2024 Interpretation and review of laboratory results Normal [facility] Vital signson 01-20-2024 Heart rate 95 /min bpm [facility] CARECOORDon 12-11-2023 CARECOORD Pt did not show for IOP assessment on this date. Normal [facility] 36on 12-04-2023 36 For CAROL Normal [facility] 36 Normal [facility] 36 Normal [facility] 36on 12-03-2023 36 Normal [facility] IDNon 11-30-2023 IDN Normal [facility] IDN The patient is Moder ately Stable - Low risk of patient condition declining or worsening The patient's goals for the shift include Safety The clinical goals for the shift include Safety Normal [facility] Nursing Noteon 11-30-2023 Nursing Note Normal [facility] CARECOORDon 11-29-2023 CARECOORD S/W, IOP IOP counselor did come up to see patient to discuss treatment program. Patient was scheduled for an appointment for 12/10 at 10A. Normal [facility] CARECOORD Normal [facility] CARECOORD Normal [facility] IDNon 11-29-2023 IDN The patient is Moder ately Stable - Low risk of patient condition declining or worsening The patient's goals for the shift include Safety and to feel better. The clinical goals for the shift include safety [facility] Progress Noteon 11-29-[address] [facility] Progress Note Nutrition rescreen completed. Chart reviewed. Patient to be monitored and followed by the diet is technician. Normal [facility] Progress Note Normal [facility] BASIC METABOLIC PANELon 08 Anion gap [Moles/Vol] 9 mmol/L Normal 3-13 [facility] Comment on above: Performed By: #### L [id number] ####Marketing Project Manager: REINIER ZHU ([phone])[facility] ([facility])[address] [place] [address] Calcium [Mass/Vol] 8.4 mg/dL Normal 8.4-10.4 [facility] Comment on above: Performed By: #### L [id number] ####Marketing Project Manager: REINIER ZHU ([phone])[facility] ([facility])[address] Chloride [Moles/Vol] 99 mmol/L Normal 98-107 [facility] Comment on above: Performed By: #### L [id number] ####Marketing Project Manager: REINIER ZHU ([phone])[facility] ([facility])[address] CO2 [Moles/Vol] 27 mmol/L Normal 22-30 [facility] Comment on above: Performed By: #### L [id number] ####Marketing Project Manager: REINIER ZHU ([phone])[facility]ITAL[facility] LOPEZGHADA ([facility])[address] Creatinine [Mass/Vol] 0.62 mg/dL Low 0.66-1.25 [facility] Comment on above: Performed By: #### L [id number] ####Marketing Project Manager: REINIER ZHU ([phone])[facility]ITALChika LOPEZGHADA ([facility])[address] GLOMERULAR FILTRATION RATE ML/MIN/1.73 SQ M.PREDICTED >90.0 Normal >60.0 [facility] Comment on above: Result Comment: Calc ulation based on the Chronic Kidney Disease Epidemiology Collaboration (CKD-EPI) equation refit without adjustment for race Performed By: #### L [id number] ####Marketing Project Manager: REINIER ZHU ([phone])[facility]ITALCh[facility] LOPEZGHADA ([facility])[address] [place] [address] [place] Glucose [Mass/Vol] 108 mg/dL High 70-100 [facility] Comment on above: Performed By: #### L [id number] ####Marketing Project Manager: REINIER ZHU ([phone])[facility] ([facility])[address] [place] [address] [place] Potassium [Moles/Vol] 4.0 mmol/L Normal 3.5-5.1 [facility] Comment on above: Performed By: #### L [id number] ####Marketing Project Manager: REINIER ZHU ([phone])[facility]ITAL[facility] LOPEZGHADA ([facility])[address] [place] [address] [place] Sodium [Moles/Vol] 135 mmol/L Normal 135-145 [facility] Comment on above: Performed By: #### L [id number] ####Marketing Project Manager: REINIER ZHU ([phone])[facility] ([facility])[address] Urea nitrogen [Mass/Vol] 7 mg/dL Low 9-20 [facility] Comment on above: Performed By: #### L [id number] ####Marketing Project Manager: REINIER ZHU ([phone])[facility] VIRAJBAN[facility] ([facility])[address] Basic metabolic 1998 panelon 11-28-2023 Anion gap [Moles/Vol] 9 mmol/L 3 - 13 mmol/L [facility] Calcium [Mass/Vol] 8.4 mg/dL 8.4 - 10. 4 mg/dL [facility] Chloride [Moles/Vol] 99 mmol/L 98 - 10 7 mmol/L [facility] CO2 [Moles/Vol] 27 mmol/L 22 - 30 mmol/L [facility] Creatinine [Mass/Vol] 0.62 mg/dL Low 0.66 - 1.25 mg/dL [facility] GFR/1.73 sq M.predicted (S/P/Bld) [Vol rate/Area] - PINF [facility] Comment on above: Calculation based on the Chronic Kidney Disease Epidemiology Collaboration (CKD-EPI) equation refit without adjustment for race Glucose [Mass/Vol] 108 mg/dL High 70 - 100 mg/dL [facility] Interpretation and review of laboratory results Abnormal [facility] Potassium [Moles/Vol] 4.0 mmol/L 3.5 - 5.1 mmol/L [facility] Sodium [Moles/Vol] 135 mmol/L 135 - 145 mmol/L [facility] Urea nitrogen [Mass/Vol] 7 mg/dL Low 9 - 20 mg/dL [facility] CBC W Auto Differential pane l (Bld)on 11-28-2023 Basophils (Bld) [#/Vol] 0.0 10*3/uL 0.0 - 0.2 10*3/uL [facility] Basophils/100 WBC (Bld) 0.4 % 0.0 - 2.0 % [facility] Eosinophils (Bld) [#/Vol] 0.1 10*3/uL 0.0 - 0.5 10*3/uL [facility] Eosinophils/100 WBC (Bld) 1.4 % 0.0 - 6.0 % [facility] Erythrocyte distribution width (RBC) [Ratio] 14.4 % 11.5 - 15.0 % [facility] Hematocrit (Bld) [Volume fraction] 40.9 % 40.0 - 52.0 % [facility] Hemoglobin (Bld) [Mass/Vol] 13.7 g/dL 13.0 - 18.0 g/dL [facility] Immature granulocytes (Bld) [#/Vol] 0.0 10*3/uL NINF - 0.1 10*3/uL [facility] Immature granulocytes/100 WBC (Bld) 0.2 % 0.0 - 2.0 % [facility] Interpretation and review of laboratory results Abnormal [facility] Lymphocytes (Bld) [#/Vol] 1.4 10*3/uL 1.0 - 4.3 10*3/uL [facility] Lymphocytes/100 WBC (Bld) 28.5 % 15.0 - 45.0 % [facility] MCH (RBC) [Entitic mass] 31.6 pg 26.0 - 34.0 pg [facility] MCHC (RBC) [Mass/Vol] 33.5 % 30.5 - 36.0 % [facility] MCV (RBC) [Entitic vol] 94.2 fL 77.0 - 99.0 fL [facility] Monocytes (Bld) [#/Vol] 0.7 10*3/uL 0.0 - 0.9 10*3/uL [facility] Monocytes/100 WBC (Bld) 14.3 % High 5.0 - 13.0 % [facility] Neutrophils (Bld) [#/Vol] 2.7 10*3/uL 1.8 - 7.5 10*3/uL [facility] Neutrophils/100 WBC (Bld) 55.2 % 38.0 - 82.0 % [facility] Nucleated RBC/100 WBC (Bld) [Ratio] 0.0 % [facility] Platelet mean volume (Bld) [Entitic vol] 8.5 fL Low 9.0 - 12.7 fL [facility] Platelets (Bld) [#/Vol] 210 10*3/uL 140 - 440 10*3/uL [facility] RBC (Bld) [#/Vol] 4.34 10*6/uL Low 4.40 - 5.90 10*6/uL [facility] WBC (Bld) [#/Vol] 4.9 10*3/uL 3.6 - 10.7 10*3/uL [facility] CBC WITH AUTO DIFFERENTIALon 11-28-2023 Basophils (Bld) [#/Vol] 0.0 10*3/uL Normal 0.0-0.2 [facility] Comment on above: Performed By: #### L [id number] ####Marketing Project Manager: REINIER ZHU ([phone])[facility] [place] ([facility])[address] Basophils/100 WBC (Bld) 0.4 % Normal 0.0-2.0 [facility] Comment on above: Performed By: #### L [id number] ####Marketing Project Manager: REINIER ZHU ([phone])[facility] ([facility])[address] [place] [address] Eosinophils (Bld) [#/Vol] 0.1 10*3/uL Normal 0.0-0.5 [facility] Comment on above: Performed By: #### L [id number] ####Marketing Project Manager: REINIER ZHU ([phone])[facility] ([facility])[address] [place] [address] Eosinophils/100 WBC (Bld) 1.4 % Normal 0.0-6.0 [facility] Comment on above: Performed By: #### L [id number] ####Marketing Project Manager: REINIER ZHU ([phone])[facility] ([facility])[address] [place] [address] Erythrocyte distribution width (RBC) [Ratio] 14.4 % Normal 11.5-15.0 [facility] Comment on above: Performed By: #### L [id number] ####Marketing Project Manager: REINIER ZHU ([phone])[facility] ([facility])[address] [place] [address] Hematocrit (Bld) [Volume fraction] 40.9 % Normal 40.0-52.0 [facility] Comment on above: Performed By: #### L [id number] ####Marketing Project Manager: REINIER ZHU ([phone])[facility]PITALChika [facility]US[facility] ([facility])[address] Hemoglobin (Bld) [Mass/Vol] 13.7 g/dL Normal 13.0-18.0 [facility] Comment on above: Performed By: #### L [id number] ####Marketing Project Manager: REINIER ZHU ([phone])[facility]ITALCh[facility] PE[facility]IAAn[facility] ([facility] IMMATURE GRANS % 0.2 % Normal 0.0-2.0 [facility] Comment on above: Performed By: #### L [id number] ####Marketing Project Manager: REINIER ZHU ([phone])[facility] ([facility])[address] [place] [address] IMMATURE GRANS ABSOLUTE 0.0 10*3/uL Normal <0.1 [facility] Comment on above: Performed By: #### L [id number] ####Marketing Project Manager: REINIER ZHU ([phone])[facility]ITALCh[facility] ([facility])[address] [place] [address] Lymphocytes (Bld) [#/Vol] 1.4 10*3/uL Normal 1.0-4.3 [facility] Comment on above: Performed By: #### L [id number] ####Marketing Project Manager: REINIER ZHU ([phone])[facility]ITALCh[facility] PE[facility]IAAn[facility] ([facility] Lymphocytes/100 WBC (Bld) 28.5 % Normal 15.0-45.0 [facility] Comment on above: Performed By: #### L [id number] ####Marketing Project Manager: REINIER ZHU ([phone])[facility]ENTER[facility] ([facility])[address] MCH (RBC) [Entitic mass] 31.6 pg Normal 26.0-34.0 [facility] Comment on above: Performed By: #### L [id number] ####Marketing Project Manager: REINIER OVIEDOBriseidaROGER ([phone])[facility] ([facility])[address] MCHC 33.5 % Normal 30.5-36.0 [facility] Comment on above: Performed By: #### L [id number] ####Marketing Project Manager: REINIER MARKO ([phone])[facility] [place] ([facility])[address] MCV (RBC) [Entitic vol] 94.2 fL Normal 77.0-99.0 [facility] Comment on above: Performed By: #### L [id number] ####Marketing Project Manager: REINIER MARKO ([phone])[facility] ([facility])[address] [place] [address] Monocytes (Bld) [#/Vol] 0.7 10*3/uL Normal 0.0-0.9 [facility] Comment on above: Performed By: #### L [id number] ####Marketing Project Manager: REINIER MORINROGER ([phone])[facility]ITALCh[facility] [place] ([facility])[address] Monocytes/100 WBC (Bld) 14.3 % High 5.0-13.0 [facility] Comment on above: Performed By: #### L [id number] ####Marketing Project Manager: REINIER MORINROGER ([phone])[facility] [place] ([facility])[address] NEUTROPHILS ABSOLUTE 2.7 10*3/uL Normal 1.8-7.5 [facility] Comment on above: Performed By: #### L [id number] ####Marketing Project Manager: REINIER MORINROGER ([phone])[facility] [place] ([facility])[address] Neutrophils/100 WBC (Bld) 55.2 % Normal 38.0-82.0 [facility] Comment on above: Performed By: #### L [id number] ####Marketing Project Manager: REINIER ZHU ([phone])[facility] [place] ([facility])[address] NRBC 0.0 /100 WBCs Normal 0.0-2.0 [facility] Comment on above: Performed By: #### L [id number] ####Marketing Project Manager: REINIER ZHU ([phone])[facility] [place] ([facility])[address] Platelet mean volume (Bld) [Entitic vol] 8.5 fL Low 9.0-12.7 [facility] Comment on above: Performed By: #### L [id number] ####Marketing Project Manager: REINIER ZHU ([phone])[facility] [place] ([facility])[address] Platelets (Bld) [#/Vol] 210 10*3/uL Normal 140-440 [facility] Comment on above: Performed By: #### L [id number] ####Marketing Project Manager: REINIER ZHU ([phone])[facility] [place] ([facility])[address] RBC (Bld) [#/Vol] 4.34 10*6/uL Low 4.40-5.90 [facility] Comment on above: Performed By: #### L [id number] ####Marketing Project Manager: REINIER ZHU ([phone])[facility] [place] ([facility])[address] WBC (Bld) [#/Vol] 4.9 10*3/uL Normal 3.6-10.7 [facility] Comment on above: Performed By: #### L [id number] ####Marketing Project Manager: REINIER ZHU ([phone])[facility] [place] ([facility])[address] Consulton 11-28-2023 Consult Normal [facility] ECG 12-LEADon 11-28-2023 ECG 12-LEAD IMPRESSION: Sinus tachycardia Probable left atrial enlargement RSR' in V1 or V2, right VCD or RVH Borderline T abnormalities, anterior leads No significant changes compared to 07/27/2023 Electronically Signed On 11-28-2023 04:56:24 EDT by Val Torres [facility] ED Nursing Noteon 11-28-2023 ED Nursing Note Unit made aware of impending patient transport to the unit via broadcast. Judy Higgins RN 11/28/23 1650 Normal [facility] ED Nursing Note O2 turned up to 4L N C due to low saturation in 70's while sleeping Gris Dillon RN 11/28/23 1500 Normal [facility] ED Nursing Note 2L NC applied due to O2 sat in 80's while sleeping Gris Dillon RN 11/28/[address] [facility] No Panel Informationon 11-27 P [place] 77 degrees [facility] TX Interval 158 ms [facility] QRS [place] 85 degrees [facility] QRSD Interval 94 ms [facility] QT Interval 338 ms [facility] QTC Interval 463 ms [facility] T Wave [place] 56 degrees [facility] Sinus tachycardia Probable left atrial enlargement RSR' [...] On 11-28-2023 04:56:24 EDT by Val Torres [facility] Nursing Noteon 11-28-2023 Nursing Note Normal [facility] Vital signson 11-28-2023 Heart rate 113 /min bpm [facility] CBC (HEMOGRAM)on 11-27-2023 Erythrocyte distribution width (RBC) [Ratio] 14.5 % Normal 11.5-15.0 [facility] Comment on above: Performed By: #### L [id number] ####Marketing Project Manager: REINIERJA ZHU ([phone])[facility]PITALChika WEBBERAnum ([facility])[address] [place] [address] Hematocrit (Bld) [Volume fraction] 44.2 % Normal 40.0-52.0 [facility] Comment on above: Performed By: #### L [id number] ####Marketing Project Manager: REINIER MARKO ([phone])[facility]ITALChika [facility]ZBAN[facility] ([facility])[address] Hemoglobin (Bld) [Mass/Vol] 15.1 g/dL Normal 13.0-18.0 [facility] Comment on above: Performed By: #### L [id number] ####Marketing Project Manager: REINIERJA ZHU ([phone])[facility]ITALChika LOPEZMESILLA VALLEY HOSPITALAnum ([facility])[address] [place] [address] MCH (RBC) [Entitic mass] 32.0 pg Normal 26.0-34.0 [facility] Comment on above: Performed By: #### L [id number] ####Marketing Project Manager: REINIERJA ZHU ([phone])[facility]ITALCh[facility] ([facility])[address] [place] [address] MCHC 34.2 % Normal 30.5-36.0 [facility] Comment on above: Performed By: #### L [id number] ####Marketing Project Manager: REINIER MORINROGER ([phone])[facility] HOSPITALChika LOPEZBANNER [facility] (SBHLAB)[address] [place] [address] MCV (RBC) [Entitic vol] 93.6 fL Normal 77.0-99.0 S [facility] Comment on above: Performed By: #### L [id number] ####Marketing Project Manager: REINIER OVIEDOVINAYAK ([phone])[facility] HOSPITALChika ATHENS (SBHLAB)[address] Platelet mean volume (Bld) [Entitic vol] 8.4 fL Low 9.0-12.7 [facility] Comment on above: Performed By: #### L [id number] ####Marketing Project Manager: REINIER BATISTACER ([phone])[facility] HOSPITALChika WEBBERN (SBHLAB)[address] Platelets (Bld) [#/Vol] 248 10*3/uL Normal 140-440 [facility] Comment on above: Performed By: #### L [id number] ####Marketing Project Manager: REINIER BATISTACER ([phone])[facility] HOSPITALChika WEBBERN (SBHLAB)[address] RBC (Bld) [#/Vol] 4.72 10*6/uL Normal 4.40-5.90 [facility] Comment on above: Performed By: #### L [id number] ####Marketing Project Manager: REINIER MORINROGER ([phone])[facility]OSPITALChika WEBBERN (SBHLAB)[address] [place] [address] WBC (Bld) [#/Vol] 6.0 10*3/uL Normal 3.6-10.7 [facility] Comment on above: Performed By: #### L [id number] ####Marketing Project Manager: REINIER MORINROGER ([phone])[facility]OSPITALChika WEBBER (SBHLAB)[address] [place] [address] CBC panel Auto (Bld)on 11-26 Erythrocyte distribution width (RBC) [Ratio] 14.5 % 11.5 - 15.0 % [facility] Hematocrit (Bld) [Volume fraction] 44.2 % 40.0 - 52.0 % [facility] Hemoglobin (Bld) [Mass/Vol] 15.1 g/dL 13.0 - 18.0 g/dL [facility] Interpretation and review of laboratory results Abnormal [facility] MCH (RBC) [Entitic mass] 32.0 pg 26.0 - 34.0 pg [facility] MCHC (RBC) [Mass/Vol] 34.2 % 30.5 - 36.0 % [facility] MCV (RBC) [Entitic vol] 93.6 fL 77.0 - 99.0 fL [facility] [employer] Platelet mean volume (Bld) [Entitic vol] 8.4 fL Low 9.0 - 12.7 fL [facility] Platelets (Bld) [#/Vol] 248 10*3/uL 140 - 440 10*3/uL [facility] RBC (Bld) [#/Vol] 4.72 10*6/uL 4.40 - 5.90 10*6/uL [facility] WBC (Bld) [#/Vol] 6.0 10*3/uL 3.6 - 10.7 10*3/uL [facility] COMPREHENSIVE METABOLIC PANE Arnulfo 11-27-2023 Albumin [Mass/Vol] 4.3 g/dL Normal 3.5-5.0 [facility] Comment on above: Performed By: #### L AB46, [id number], LAB17 ####Marketing Project Manager: REINIER ZHU ([phone])[facility] HOSPITALA VIRAJGHADA (SBHLAB)[address] ALP [Catalytic activity/Vol] 99 U/L Normal 38-126 [facility] Comment on above: Performed By: #### Jose Carlos AB46, [id number], LAB17 ####Marketing Project Manager: REINIER ZHU ([phone])[facility]ENTERYAZ (SBHLAB)[address] ALT [Catalytic activity/Vol] 27 U/L Normal 0-49 [facility] Comment on above: Performed By: #### L AB46, [id number], LAB17 ####Marketing Project Manager: REINIER ZHU ([phone])[facility] CENTERYAZN (SBHLAB)[address] Anion gap [Moles/Vol] 11 mmol/L Normal 3-13 [facility] Comment on above: Performed By: #### L AB46, [id number], LAB17 ####Marketing Project Manager: REINIER ZHU ([phone])[facility] (SBHLAB)[address] [place] [address] [place] AST [Catalytic activity/Vol] 42 U/L Normal 15-46 [facility] Comment on above: Performed By: #### L AB46, [id number], LAB17 ####Marketing Project Manager: REINIER ZHU ([phone])[facility] HOSPITALA VIRAJMESILLA VALLEY HOSPITALN (SBHLAB)[address] Bilirubin [Mass/Vol] 0.4 mg/dL Normal 0.2-1.3 [facility] Comment on above: Performed By: #### L AB46, [id number], LAB17 ####Marketing Project Manager: REINIER ZHU ([phone])[facility] (SBHLAB)[address] Calcium [Mass/Vol] 8.7 mg/dL Normal 8.4-10.4 [facility] Comment on above: Performed By: #### L AB46, [id number], LAB17 ####Marketing Project Manager: REINIER ZHU ([phone])[facility] (SBHLAB)[address] Chloride [Moles/Vol] 101 mmol/L Normal 98-107 [facility] Comment on above: Performed By: #### L AB46, [id number], LAB17 ####Marketing Project Manager: REINIER ZHU ([phone])[facility] (SBHLAB)[address] [place] [address] [place] CO2 [Moles/Vol] 27 mmol/L Normal 22-30 [facility] Comment on above: Performed By: #### L AB46, [id number], LAB17 ####Marketing Project Manager: REINIER ZHU ([phone])[facility] (SBHLAB)[address] Creatinine [Mass/Vol] 0.64 mg/dL Low 0.66-1.25 [facility] Comment on above: Performed By: #### L AB46, [id number], LAB17 ####Marketing Project Manager: REINIER ZHU ([phone])[facility] (SBHLAB)[address] GLOMERULAR FILTRATION RATE ML/MIN/1.73 SQ M.PREDICTED >90.0 Normal >60.0 [facility] Comment on above: Result Comment: Calc ulation based on the Chronic Kidney Disease Epidemiology Collaboration (CKD-EPI) equation refit without adjustment for race Performed By: #### L AB46, [id number], LAB17 ####Marketing Project Manager: REINIER ZHU ([phone])[facility] HOSPITALA LAWANDAN (SBHLAB)[address] Glucose [Mass/Vol] 97 mg/dL Normal 70-100 [facility] Comment on above: Performed By: #### L AB46, [id number], LAB17 ####Marketing Project Manager: REINIER ZHU ([phone])[facility] HOSPITALA [place] (SBHLAB)[address] Potassium [Moles/Vol] 4.2 mmol/L Normal 3.5-5.1 [facility] Comment on above: Performed By: #### L AB46, [id number], LAB17 ####Marketing Project Manager: REINIER ZHU ([phone])[facility]ERN (SBHLAB)[address] Protein [Mass/Vol] 7.3 g/dL Normal 6.3-8.2 [facility] Comment on above: Performed By: #### L AB46, [id number], LAB17 ####Marketing Project Manager: REINIER ZHU ([phone])[facility] HOSPITALChika BARBMESILLA VALLEY HOSPITALN (SBHLAB)[address] Sodium [Moles/Vol] 139 mmol/L Normal 135-145 [facility] Comment on above: Performed By: #### L AB46, [id number], LAB17 ####Marketing Project Manager: REINIER ZHU ([phone])[facility]OSPITALA [place] (SBHLAB)[address] [place] [address] [place] Urea nitrogen [Mass/Vol] 7 mg/dL Low 9-20 [facility] Comment on above: Performed By: #### L AB46, [id number], LAB17 ####Marketing Project Manager: REINIER ZHU ([phone])[facility]ERN (SBHLAB)[address] Comprehensive metabolic 1998 panelon 11-27-2023 Albumin [Mass/Vol] 4.3 g/dL 3.5 - 5.0 g/dL [facility] ALP [Catalytic activity/Vol] 99 U/L 38 - 126 U/L [facility] ALT [Catalytic activity/Vol] 27 U/L 0 - 49 U/L [facility] Anion gap [Moles/Vol] 11 mmol/L 3 - 13 mmol/L [facility] AST [Catalytic activity/Vol] 42 U/L 15 - 46 U/L [facility] Bilirubin [Mass/Vol] 0.4 mg/dL 0.2 - 1 .3 mg/dL [facility] Calcium [Mass/Vol] 8.7 mg/dL 8.4 - 10. 4 mg/dL [facility] Chloride [Moles/Vol] 101 mmol/L 98 - 10 7 mmol/L [facility] CO2 [Moles/Vol] 27 mmol/L 22 - 30 mmol/L [facility] Creatinine [Mass/Vol] 0.64 mg/dL Low 0.66 - 1.25 mg/dL [facility] GFR/1.73 sq M.predicted (S/P/Bld) [Vol rate/Area] - PINF [facility] Comment on above: Calculation based on the Chronic Kidney Disease Epidemiology Collaboration (CKD-EPI) equation refit without adjustment for race Glucose [Mass/Vol] 97 mg/dL 70 - 100 mg/dL [facility] Potassium [Moles/Vol] 4.2 mmol/L 3.5 - 5.1 mmol/L [facility] Protein [Mass/Vol] 7.3 g/dL 6.3 - 8.2 g/dL [facility] Sodium [Moles/Vol] 139 mmol/L 135 - 145 mmol/L [facility] Urea nitrogen [Mass/Vol] 7 mg/dL Low 9 - 20 mg/dL [facility] DRUGS OF ABUSEon 11-27-2023 AMPHETAMINE SCREEN Negative Normal [facility] Comment on above: Performed By: #### L [id number] ####Marketing Project Manager: REINIER ZHU ([phone])[facility] (SBHLAB)[address] [place] [address] BARBITURATES SCREEN Negative Normal [facility] Comment on above: Performed By: #### L [id number] ####Marketing Project Manager: REINIER ZHU ([phone])[facility] HOSPITALA BARBMESILLA VALLEY HOSPITALN (SBHLAB)[address] BENZODIAZEPINE SCREEN Negative Normal [facility] Comment on above: Performed By: #### L [id number] ####Marketing Project Manager: REINIER MARKO ([phone])[facility] HOSPITALA BARBMESILLA VALLEY HOSPITALN (SBHLAB)[address] COCAINE METAB. SCREEN Negative Normal [facility] Comment on above: Performed By: #### L [id number] ####Marketing Project Manager: REINIER OVIEDOVINAYAK ([phone])[facility] BARBMESILLA VALLEY HOSPITALN (SBHLAB)[address] METHADONE SCREEN Negative Normal [facility] Comment on above: Performed By: #### L [id number] ####Marketing Project Manager: REINIER OVIEDOVINAYAK ([phone])[facility] BARBMESILLA VALLEY HOSPITALN (SBHLAB)[address] OPIATES SCREEN Negative Normal [facility] Comment on above: Performed By: #### L [id number] ####Marketing Project Manager: REINIER MORINROGER ([phone])[facility] BARBMESILLA VALLEY HOSPITALN (SBHLAB)[address] OXYCODONE SCREEN Negative Normal [facility] Comment on above: Performed By: #### L [id number] ####Marketing Project Manager: REINIER MORINROGER ([phone])[facility] (SBHLAB)[address] PHENCYCLIDINE SCREEN Negative Normal [facility] Comment on above: Result Comment: [...] under separate order. Performed By: #### L [id number] ####Marketing Project Manager: REINIER ZUH ([phone])[facility] HOSPITALChika LOPEZMESILLA VALLEY HOSPITALAnum (SBHLAB)[address] ED Nursing Noteon 11-27-2023 ED Nursing Note Normal [facility] ED Nursing Note Detox rules read and signed by patient. Witnessed by this RN. Larry Avila RN 11/27/23 2306 Normal [facility] ED Provider Noteon ED Provider Note Normal [facility] ETHANOLon 11-27-2023 ETHANOL IN SER/PLAS 0.297 g/dL High 0.000-0. 01 0 [facility] Comment on above: Result Comment: [place] Lag[place]as COMMENTS:NOTE: This result is for medical treatment only. Analysis performed using non-forensic procedures. Performed By: #### L AB46, [id number], LAB17 ####Marketing Project Manager: REINIER ZHU ([phone])[facility] VIRAJBANNER [facility]ARD[facility])[address] Ethanol (Bld) [Mass/Vol]on 0 11-27-2023 Ethanol [Mass/Vol] 0.297 g/dL High 0.000 - 0.010 g/dL [facility] Laboratory - Chemistry and C hemistry - challengeon 11-27-2023 Magnesium [Mass/Vol] 2.0 mg/dL 1.6 - 2 .3 mg/dL [facility] Laboratory - Drug toxicology Ordered By: Mitul Olson on 11-27-2023 Amphetamines Screen method >1000 ng/mL Ql (U) Negative [facility] Barbiturates Screen method >200 ng/mL Ql (U) Negative [facility] Benzodiazepines Ql (U) Negative [facility] Methadone Screen Ql (U) Negative [facility] Opiates Screen Ql (U) Negative [facility] oxyCODONE Ql (U) Negative [facility] Phencyclidine Ql (U) Negative [facility] Laboratory - Microbiology an d Antimicrobial susceptibilityOrdered By: Maite Fleming on 11-27-2023 SARS-CoV-2 (COVID-19) Ag IA.rapid Ql (Resp) Negative Negative [facility] Comment on above: A negative result do es not rule out the possibility of SARS-CoV-2 infection. NAAT-based methods should be considered for symptomatic patients presenting greater than seven days after onset of symptoms. Method: Lateral flow immunoassay. Fact sheets for healthcare providers and patients can be found at the following sites: https://www.fda.gov/media/078210/download https://www.fda.gov/media/404895/download MAGNESIUMon 11-27-2023 Magnesium [Mass/Vol] 2.0 mg/dL Normal 1.6-2.3 [facility] Comment on above: Performed By: #### L AB46, [id number], LAB17 ####Marketing Project Manager: REINIER ZHU ([phone])[facility]OSPITALChika HOYT ([facility])[address] [place] [address] Magnesium [Mass/Vol]on 11-26 Interpretation and review of laboratory results Normal [facility] No Panel Informationon 11-26 Interpretation and review of laboratory results Abnormal [facility] No Panel InformationOrdered By: Mitul Olson on 11-27-2023 COCAINE METAB. SCREEN Negative [facility] The expected value f or all [...] is needed, request confirmation under separate order. [facility] SARS-COV-2 ANTIGENon 024 SARS-COV-2 ANTIGEN Normal [facility] Comment on above: Performed By: #### L [id number] ####Marketing Project Manager: REINIER ZHU ([phone])[facility] VIRAJGHADA (SBHLAB)[address] SARS-CoV-2 (COVID-19) Ag IA. rapid Ql (Resp)Ordered By: Maite Fleming on 11-27-2023 Interpretation and review of laboratory results Normal [facility] Laboratory - Drug toxicology on 07-30-2023 PHENobarbital [Mass/Vol] 14.9 ug/mL 10.0 - 40.0 ug/mL [facility] No Panel Informationon 07-29 Interpretation and review of laboratory results Normal [facility] Basic metabolic 1998 panelon 07-27-2023 Anion gap [Moles/Vol] 12 mmol/L 3 - 13 mmol/L [facility] Calcium [Mass/Vol] 8.9 mg/dL 8.4 - 10. 4 mg/dL [facility] Chloride [Moles/Vol] 98 mmol/L 98 - 10 7 mmol/L [facility] CO2 [Moles/Vol] 26 mmol/L 22 - 30 mmol/L [facility] Creatinine [Mass/Vol] 0.62 mg/dL Low 0.66 - 1.25 mg/dL [facility] GFR/1.73 sq M.predicted MDRD (S/P/Bld) [Vol rate/Area] - PINF [facility] Comment on above: Calculation based on the Chronic Kidney Disease Epidemiology Collaboration (CKD-EPI) equation refit without adjustment for race Glucose [Mass/Vol] 128 mg/dL High 70 - 100 mg/dL [facility] Potassium [Moles/Vol] 3.9 mmol/L 3.5 - 5.1 mmol/L [facility] Sodium [Moles/Vol] 136 mmol/L 135 - 145 mmol/L [facility] Urea nitrogen [Mass/Vol] 4 mg/dL Low 9 - 20 mg/dL [facility] CBC W Auto Differential pane l (Bld)Ordered By: Aurora Garcia on 07-27-2023 Basophils (Bld) [#/Vol] 0.1 10*3/uL 0.0 - 0.2 10*3/uL [facility] Basophils/100 WBC (Bld) 0.8 % 0.0 - 2.0 % [facility] Eosinophils (Bld) [#/Vol] 0.1 10*3/uL 0.0 - 0.5 10*3/uL [facility] Eosinophils/100 WBC (Bld) 1.7 % 0.0 - 6.0 % [facility] Erythrocyte distribution width (RBC) [Ratio] 13.0 % 11.5 - 15.0 % [facility] Hematocrit (Bld) [Volume fraction] 46.2 % 40.0 - 52.0 % [facility] Hemoglobin (Bld) [Mass/Vol] 16.3 g/dL 13.0 - 18.0 g/dL [facility] Immature granulocytes (Bld) [#/Vol] 0.0 10*3/uL NINF - 0.1 10*3/uL [facility] Immature granulocytes/100 WBC (Bld) 0.3 % 0.0 - 2.0 % [facility] Interpretation and review of laboratory results Abnormal [facility] Lymphocytes (Bld) [#/Vol] 1.7 10*3/uL 1.0 - 4.3 10*3/uL [facility] Lymphocytes/100 WBC (Bld) 27.2 % 15.0 - 45.0 % [facility] MCH (RBC) [Entitic mass] 34.0 pg 26.0 - 34.0 pg [facility] MCHC (RBC) [Mass/Vol] 35.3 % 30.5 - 36.0 % [facility] MCV (RBC) [Entitic vol] 96.5 fL 77.0 - 99.0 fL [facility] Monocytes (Bld) [#/Vol] 0.7 10*3/uL 0.0 - 0.9 10*3/uL [facility] Monocytes/100 WBC (Bld) 11.0 % 5.0 - 13.0 % [facility] Neutrophils (Bld) [#/Vol] 3.8 10*3/uL 1.8 - 7.5 10*3/uL [facility] Neutrophils/100 WBC (Bld) 59.0 % 38.0 - 82.0 % [facility] Nucleated RBC/100 WBC (Bld) [Ratio] 0.0 % [facility] Platelet mean volume (Bld) [Entitic vol] 8.6 fL Low 9.0 - 12.7 fL [facility] Platelets (Bld) [#/Vol] 296 10*3/uL 140 - 440 10*3/uL [facility] RBC (Bld) [#/Vol] 4.79 10*6/uL 4.40 - 5.90 10*6/uL [facility] WBC (Bld) [#/Vol] 6.4 10*3/uL 3.6 - 10.7 10*3/uL [facility] CT Abdomen and Pelvis W cont rast Main 07-27-2023 1. No acute findings. 2. Hepatic steatosis. 3. Sigmoid colon diverticulosis without evidence of diverticulitis. Report Dictated on Electronically Signed By: Sen Bear MD Electronically Signed Date/Time: 07/27/2023 8:52 PM EDT [facility] Patient Name: MARIA DE JESUS SÁNCHEZ [...] scattered in the thoracic and lumbar spine. [facility] Sen Bear MD - 07/27/2023 Patient [...] Electronically Signed Date/Time: 07/27/2023 8:52 PM EDT [facility] Radiology Study observation (narrative) [facility] CT Abdomen and Pelvis W cont rast IVOrdered By: Sen Bear on 07-27-2023 [facility] [employer] Work Phone: Ethanol (Bld) [Mass/Vol]Orde red By: Jyotsna Peralta on 07-27-2023 Ethanol [Mass/Vol] 0.337 g/dL Critically high 0.000 - 0.010 g/dL [facility] Interpretation and review of laboratory results Abnormal [facility] Hepatic function 2000 panelo n 07-27-2023 Albumin [Mass/Vol] 4.5 g/dL 3.5 - 5.0 g/dL [facility] ALP [Catalytic activity/Vol] 113 U/L 38 - 126 U/L [facility] ALT [Catalytic activity/Vol] 77 U/L High 0 - 49 U/L [facility] AST [Catalytic activity/Vol] 102 U/L High 15 - 46 U/L [facility] Bilirubin [Mass/Vol] 0.6 mg/dL 0.2 - 1 .3 mg/dL [facility] Bilirubin.conjugated [Mass/Vol] 0.0 mg/dL 0.0 - 0.3 mg/dL [facility] Protein [Mass/Vol] 7.6 g/dL 6.3 - 8.2 g/dL [facility] Laboratory - Chemistry and C hemistry - challengeon 07-27-2023 Lipase [Catalytic activity/Vol] 282 U/L 23 - 300 U/L [facility] Laboratory - Drug toxicology on 07-27-2023 Amphetamines Screen method >1000 ng/mL Ql (U) Negative [facility] Barbiturates Screen method >200 ng/mL Ql (U) Positive [facility] Benzodiazepines Ql (U) Negative [facility] Methadone Screen Ql (U) Negative [facility] Opiates Screen Ql (U) Negative [facility] oxyCODONE Ql (U) Negative [facility] Phencyclidine Ql (U) Negative [facility] Laboratory - Microbiology an d Antimicrobial susceptibilityon 07-27-2023 SARS-CoV-2 (COVID-19) Ag IA.rapid Ql (Resp) Negative Negative [facility] Comment on above: A negative result do es not rule out the possibility of SARS-CoV-2 infection. NAAT-based methods should be considered for symptomatic patients presenting greater than seven days after onset of symptoms. Method: Lateral flow immunoassay. Fact sheets for healthcare providers and patients can be found at the following sites: https://www.fda.gov/media/906605/download https://www.fda.gov/media/071094/download Lipase [Catalytic activity/V ol]on 07-27-2023 Interpretation and review of laboratory results Normal [facility] No Panel Informationon 07-26 COCAINE METAB. SCREEN Negative [facility] The expected value f or all [...] is needed, request confirmation under separate order. [facility] Interpretation and review of laboratory results Abnormal [facility] P [place] 66 degrees [facility] TX Interval 156 ms [facility] QRS [place] 68 degrees [facility] QRSD Interval 96 ms [facility] QT Interval 358 ms [facility] QTC Interval 461 ms [facility] T Wave [place] 46 degrees [facility] Sinus rhythm Anterior infarct, age indeterminate Electronically Signed On 07-27-2023 19:06:02 EDT by Triston Abraham CV Triston Lehman MD - 07/27/2023 IMPRESSION: Sinus rhythm Anterior infarct, age indeterminate Electronically Signed On 07-27-2023 19:06:02 EDT by Triston Abraham [facility] SARS-CoV-2 (COVID-19) Ag IA. rapid Ql (Resp)on 07-27-2023 Interpretation and review of laboratory results Normal [facility] Vital signson 07-27-2023 Heart rate 99 /min bpm [facility] CBC W Auto Differential pane l (Bld)Ordered By: Chip Clinton on 07-08-2023 Basophils (Bld) [#/Vol] 0.0 10*3/uL 0.0 - 0.2 10*3/uL [facility] Basophils/100 WBC (Bld) 0.7 % 0.0 - 2.0 % [facility] Eosinophils (Bld) [#/Vol] 0.1 10*3/uL 0.0 - 0.5 10*3/uL [facility] Eosinophils/100 WBC (Bld) 1.0 % 0.0 - 6.0 % [facility] Erythrocyte distribution width (RBC) [Ratio] 13.7 % 11.5 - 15.0 % [facility] Hematocrit (Bld) [Volume fraction] 45.6 % 40.0 - 52.0 % [facility] Hemoglobin (Bld) [Mass/Vol] 16.1 g/dL 13.0 - 18.0 g/dL [facility] Immature granulocytes (Bld) [#/Vol] 0.0 10*3/uL NINF - 0.1 10*3/uL [facility] Immature granulocytes/100 WBC (Bld) 0.2 % 0.0 - 2.0 % [facility] Interpretation and review of laboratory results Abnormal [facility] Lymphocytes (Bld) [#/Vol] 1.7 10*3/uL 1.0 - 4.3 10*3/uL [facility] Lymphocytes/100 WBC (Bld) 29.7 % 15.0 - 45.0 % [facility] MCH (RBC) [Entitic mass] 34.0 pg 26.0 - 34.0 pg [facility] MCHC (RBC) [Mass/Vol] 35.3 % 30.5 - 36.0 % [facility] MCV (RBC) [Entitic vol] 96.2 fL 77.0 - 99.0 fL [facility] Monocytes (Bld) [#/Vol] 0.5 10*3/uL 0.0 - 0.9 10*3/uL [facility] Monocytes/100 WBC (Bld) 9.0 % 5.0 - 13.0 % [facility] Neutrophils (Bld) [#/Vol] 3.5 10*3/uL 1.8 - 7.5 10*3/uL [facility] Neutrophils/100 WBC (Bld) 59.4 % 38.0 - 82.0 % [facility] Nucleated RBC/100 WBC (Bld) [Ratio] 0.0 % [facility] Platelet mean volume (Bld) [Entitic vol] 8.8 fL Low 9.0 - 12.7 fL [facility] Platelets (Bld) [#/Vol] 240 10*3/uL 140 - 440 10*3/uL [facility] RBC (Bld) [#/Vol] 4.74 10*6/uL 4.40 - 5.90 10*6/uL [facility] WBC (Bld) [#/Vol] 5.9 10*3/uL 3.6 - 10.7 10*3/uL [facility] Comprehensive metabolic 1998 panelon 07-08-2023 Albumin [Mass/Vol] 4.5 g/dL 3.5 - 5.0 g/dL [facility] ALP [Catalytic activity/Vol] 113 U/L 38 - 126 U/L [facility] ALT [Catalytic activity/Vol] 52 U/L High 0 - 49 U/L [facility] Anion gap [Moles/Vol] 13 mmol/L 3 - 13 mmol/L [facility] AST [Catalytic activity/Vol] 79 U/L High 15 - 46 U/L [facility] Bilirubin [Mass/Vol] 0.9 mg/dL 0.2 - 1 .3 mg/dL [facility] Calcium [Mass/Vol] 9.0 mg/dL 8.4 - 10. 4 mg/dL [facility] Chloride [Moles/Vol] 94 mmol/L Low 98 - 10 7 mmol/L [facility] CO2 [Moles/Vol] 26 mmol/L 22 - 30 mmol/L [facility] Creatinine [Mass/Vol] 0.69 mg/dL 0.66 - 1.25 mg/dL [facility] GFR/1.73 sq M.predicted MDRD (S/P/Bld) [Vol rate/Area] - PINF [facility] Comment on above: Calculation based on the Chronic Kidney Disease Epidemiology Collaboration (CKD-EPI) equation refit without adjustment for race Glucose [Mass/Vol] 125 mg/dL High 70 - 100 mg/dL [facility] Interpretation and review of laboratory results Abnormal [facility] Potassium [Moles/Vol] 4.5 mmol/L 3.5 - 5.1 mmol/L [facility] Protein [Mass/Vol] 8.0 g/dL 6.3 - 8.2 g/dL [facility] Sodium [Moles/Vol] 134 mmol/L Low 135 - 145 mmol/L [facility] Urea nitrogen [Mass/Vol] 4 mg/dL Low 9 - 20 mg/dL [facility] Ethanol (Bld) [Mass/Vol]Orde red By: Shellie Morel on 07-08-2023 Ethanol [Mass/Vol] 0.358 g/dL Critically high 0.000 - 0.010 g/dL [facility] Interpretation and review of laboratory results Abnormal [facility] Laboratory - Drug toxicology on 07-08-2023 Amphetamines Screen method >1000 ng/mL Ql (U) Negative [facility] Barbiturates Screen method >200 ng/mL Ql (U) Negative [facility] Benzodiazepines Ql (U) Negative [facility] Methadone Screen Ql (U) Negative [facility] Opiates Screen Ql (U) Negative [facility] oxyCODONE Ql (U) Negative [facility] Phencyclidine Ql (U) Negative [facility] Laboratory - Microbiology an d Antimicrobial susceptibilityOrdered By: Mitul Olson on 07-08-2023 SARS-CoV-2 (COVID-19) Ag IA.rapid Ql (Resp) Negative Negative [facility] Comment on above: A negative result do es not rule out the possibility of SARS-CoV-2 infection. NAAT-based methods should be considered for symptomatic patients presenting greater than seven days after onset of symptoms. Method: Lateral flow immunoassay. Fact sheets for healthcare providers and patients can be found at the following sites: https://www.fda.gov/media/765936/download https://www.[employer].gov/media/817766/download No Panel Informationon 07-07 COCAINE METAB. SCREEN Negative [facility] The expected value f or all [...] is needed, request confirmation under separate order. [facility] P [place] 58 degrees [facility] TX Interval 149 ms [facility] QRS [place] 81 degrees [facility] QRSD Interval 105 ms [facility] QT Interval 360 ms [facility] QTC Interval 474 ms [facility] T Wave [place] 39 degrees [facility] Sinus tachycardia Probable left atrial enlargement No previous ECG available for comparison Electronically Signed On 07-08-2023 18:36:57 EDT by Catalino Mujica CV Catalino Hernandez MD - 07/08/2023 IMPRESSION: Sinus tachycardia Probable left atrial enlargement No previous ECG available for comparison Electronically Signed On 07-08-2023 18:36:57 EDT by Catalino Mujica [facility] SARS-CoV-2 (COVID-19) Ag IA. rapid Ql (Resp)Ordered By: Mitul Olson on 07-08-2023 Interpretation and review of laboratory results Normal [facility] Vital signson 07-08-2023 Heart rate 104 /min bpm [facility] [employer] Laboratory - Drug toxicology Ordered By: Bipin Wilson on 05-21-2023 Amphetamines Ql (U) Negative Negative [facility] Benzodiazepines Ql (U) Negative Negative [facility] Cocaine Ql (U) Negative Negative [facility] [employer] Ethanol [Mass/Vol] Positive Negative [facility] Methadone Ql (U) Negative Negative [facility] Opiates Ql (U) Negative Negative [facility] No Panel InformationOrdered By: Keila Marina on 05-21-2023 P [place] 78 degrees [facility] [email or web address] Work Phone: [place] Interval 154 ms [employer] Work Phone: QRS [place] 75 degrees [employer] Work Phone: QRSD Interval 105 ms [employer] Work Phone: QT Interval 381 ms [employer] Work Phone: QTC Interval 484 ms [employer] Work Phone: [phone] T Wave [place] 60 degrees [employer] Work Phone: [employer] Work Phone: No Panel Informationon 05-21 Sinus rhythm Consider left atrial enlargement Abnormal T, consider ischemia, anterior leads no significant change from prior Electronically Signed On 05-21-2023 13:12:25 EST by Keila Gomez [facility], - 05/21/2023 IMPRESSION: Sinus rhythm Consider left atrial enlargement Abnormal T, consider ischemia, anterior leads no significant change from prior Electronically Signed On 05-21-2023 13:12:25 EST by Keila Rcwilcortez [facility] [employer] ETHYL GLUCURONIDE, URINE Positive Negative [facility] [employer] Ethyl Glucuronide sainz s been screened by [...] been determined by the clinical laboratories of [facility]. [facility] No Panel InformationOrdered By: Bipin Wilson on 05-21-2023 BARBITURATES Negative Negative [facility] BUPRENORPHINE SCREEN Negative Negative [facility] FENTANYL Negative Negative [facility] OXYCODONE/OXYMORPHONE Negative Negative [facility] PCP Negative Negative [facility] THC Negative Negative [facility] The expected value f or the drugs [...] treatment only. Analysis performed using non-forensic procedures. [facility] Vital signsOrdered By: Keila Marina on 05-21-2023 Heart rate 97 /min bpm [facility] Work Phone: CBC W Auto Differential pane l (Bld)Ordered By: Mitul Olson on 05-20-2023 Basophils (Bld) [#/Vol] 0.1 10*3/uL 0.0 - 0.2 10*3/uL [facility] Basophils/100 WBC (Bld) 1.3 % 0.0 - 2.0 % [facility] Eosinophils (Bld) [#/Vol] 0.1 10*3/uL 0.0 - 0.5 10*3/uL [facility] Eosinophils/100 WBC (Bld) 1.1 % 1.0 - 6.0 % [facility] Erythrocyte distribution width (RBC) [Ratio] 14.2 % 11.5 - 14.5 % [facility] Hematocrit (Bld) [Volume fraction] 47.4 % 40.0 - 52.0 % [facility] Hemoglobin (Bld) [Mass/Vol] 16.3 g/dL 13.0 - 18.0 g/dL [facility] Interpretation and review of laboratory results Abnormal [facility] Lymphocytes (Bld) [#/Vol] 1.4 10*3/uL 1.0 [...] (Bld) 56.4 % 40.0 - 80.0 % [facility] Nucleated RBC/100 WBC (Bld) [Ratio] 0.1 % [facility] Platelet mean volume (Bld) [Entitic vol] 7.0 fL Low 7.4 - 12.4 fL [facility] Platelets (Bld) [#/Vol] 199 10*3/uL 140 - 440 10*3/uL [facility] RBC (Bld) [#/Vol] 4.86 10*6/uL 4.40 - 5.90 10*6/uL [facility] WBC (Bld) [#/Vol] 5.5 10*3/uL 3.6 - 10.7 10*3/uL [facility] CT Abdomen and Pelvis W cont rast Main 05-20-2023 No acute findings. Report Dictated on Electronically Signed By: Johnson Haro MD Electronically Signed Date/Time: 05/20/2023 10:13 PM [facility] Patient Name: MARIA DE JESUS [...] obstruction. No free fluid. Bladder is unremarkable. [facility] Johnson Haro MD - 05/20/2023 Patient [...] Electronically Signed Date/Time: 05/20/2023 10:13 PM EST [facility] [employer] Radiology Study observation (narrative) [facility] [employer] CT Abdomen and Pelvis W cont rast IVOrdered By: Johnson Haro on 05-20-2023 [employer] Work Phone: Comprehensive metabolic 1998 panelon 05-20-2023 Albumin [Mass/Vol] 4.2 g/dL 3.5 - 5.0 g/dL [facility] [employer] ALP [Catalytic activity/Vol] 104 U/L 38 - 126 U/L [facility] [employer] ALT [Catalytic activity/Vol] 140 U/L High 0 - 49 U/L [facility] [employer] Anion gap [Moles/Vol] 17 mmol/L High 3 - 13 mmol/L [facility] AST [Catalytic activity/Vol] 123 U/L High 15 - 46 U/L [facility] Bilirubin [Mass/Vol] 0.6 mg/dL 0.2 - 1 .3 mg/dL [facility] Calcium [Mass/Vol] 9.0 mg/dL 8.4 - 10. 4 mg/dL [facility] Chloride [Moles/Vol] 92 mmol/L Low 98 - 10 7 mmol/L [facility] CO2 [Moles/Vol] 21 mmol/L Low 22 - 30 mmol/L [facility] Creatinine [Mass/Vol] 0.60 mg/dL Low 0.66 - 1.25 mg/dL [facility] GFR/1.73 sq M.predicted MDRD (S/P/Bld) [Vol rate/Area] - PINF [facility] Comment on above: Calculation based on the Chronic Kidney Disease Epidemiology Collaboration (CKD-EPI) equation refit without adjustment for race Glucose [Mass/Vol] 119 mg/dL High 70 - 100 mg/dL [facility] Interpretation and review of laboratory results Abnormal [facility] Potassium [Moles/Vol] 3.8 mmol/L 3.5 - 5.1 mmol/L [facility] Protein [Mass/Vol] 7.4 g/dL 6.3 - 8.2 g/dL [facility] Sodium [Moles/Vol] 130 mmol/L Low 135 - 145 mmol/L [facility] Urea nitrogen [Mass/Vol] 5 mg/dL Low 9 - 20 mg/dL [facility] Laboratory - Chemistry and C hemistry - challengeon 05-20-2023 Base excess Calc (BldV) [Moles/Vol] -1.0000 mmol/L -3 - 3 mmol/L [facility] CO2 (BldV) [Partial pressure] 48.3 mm[Hg] [facility] HCO3 (Bld) [Moles/Vol] 25.6 mmol/L 23.0 - 27.0 mmol/L [facility] Oxygen (BldV) [Partial pressure] 53.3 mm[Hg] mm Hg [facility] pH (BldV) 7.333 [pH] 7.330 - 7.430 pH [facility] Troponin I.cardiac [Mass/Vol] ng/mL NINF - 0.034 ng/mL [facility] Lipase [Catalytic activity/Vol] 230 U/L 23 - 300 U/L [facility] Lipase [Catalytic activity/V ol]on 05-20-2023 Interpretation and review of laboratory results Normal [facility] No Panel Informationon 05-20 FIO2 [facility] Performed by: [facility], [address] [place] [id number] CLIA ID: [id number] [facility] Radiology Study observation (narrative) [facility] Troponin I.cardiac [Mass/Vol ]on 05-20-2023 Interpretation and review of laboratory results Normal [facility] Patients with high l evels of Biotin oral intake (ie >5 mg/day) may have falsely decreased Troponin levels. [facility] Urinalysis complete panel (U )Ordered By: Rebeca Rhodes on 05-20-2023 Bilirubin Ql (U) Negative Negative mg/dL [facility] Clarity (U) Clear Clear [facility] Color (U) Colorless Lt. Yellow [facility] Glucose Ql (U) Normal Normal (<70) mg/dL [facility] Hemoglobin Ql (U) Negative Negative mg/dL [facility] Interpretation and review of laboratory results Abnormal [facility] Ketones (U) [Mass/Vol] Negative Negat shiv mg/dL [facility] Leukocyte esterase Test strip Ql (U) Negative Negative Estefani/uL [facility] Nitrite Ql (U) Negative Negative [facility] pH (U) 5.5 [pH] 5.0 - 8.0 pH [facility] Protein (U) [Mass/Vol] Negative Negat shiv mg/dL [facility] Specific gravity (U) [Rel density] 1.003 Low 1.005 - 1.030 [facility] Urobilinogen (U) [Mass/Vol] Normal Normal (0-1) mg/dL [facility] Vital signson 05-20-2023 Oxygen saturation in Venous blood 84.6 % [facility] Comment on above: Performed by CLIA ID : [id number] [place], [place] ?Device: [id number] Entry Level Software Engineer ID: [id number] XR Chest Single viewon 05-20 FINDINGS AND IMPRESS ION: SUPPORT DEVICES: None OSSEOUS STRUCTURES: Degenerative changes in the thoracic spine. HEART AND MEDIASTINUM: The cardiomediastinal silhouette appears unchanged from the prior exam. LUNGS AND PLEURA: The lungs are clear.. Mildly elevated right hemidiaphragm, unchanged. No sizable pleural effusion. Report Dictated on Electronically Signed By: Harjinder Gotti MD Electronically Signed Date/Time: 05/20/2023 8:40 PM [facility] [employer] [facility] Patient Name: MARIA DE JESUS SÁNCHEZ : 1965 Exam Date/Time: 05/20/2023 20:23 Procedure: XR CHEST 1 VIEW Ordering Provider: LUNA QUENTIN Reason For Exam: sob CHEST CLINICAL INDICATION: Dyspnea TECHNIQUE: AP portable chest COMPARISON: 09/06/2021 [facility] Harjinder Gotti MD - 05/20/2023 Patient [...] MD Electronically Signed Date/Time: 05/20/2023 8:40 PM [facility] [employer] Radiology Study observation (narrative) [employer] XR Chest Single viewOrdered By: Harjinder Gotti on 05-20-2023 [employer] Work Phone: XR Hand - left 3 Viewson No acute fracture or dislocation identified. Report Dictated on Electronically Signed By: Nate De La O MD Electronically Signed Date/Time: 03/19/2023 11:04 AM [facility] [employer] [facility] Patient Name: MARIA DE JESUS SÁNCHEZ [...] There is no soft tissue abnormality. [facility] Nate De La O MD [...] Electronically Signed Date/Time: 03/19/2023 11:04 AM EST [employer] Radiology Study observation (narrative) [employer] XR Hand - left 3 ViewsOrdere d By: Nate De La O on 03-19-2023 [employer] Work Phone: Hepatic function 2000 panelo n 02-11-2023 Albumin [Mass/Vol] 4.1 g/dL 3.5 - 5.0 g/dL [employer] ALP [Catalytic activity/Vol] 86 U/L 38 - 126 U/L [employer] ALT [Catalytic activity/Vol] 129 U/L High 0 - 49 U/L [facility] AST [Catalytic activity/Vol] 90 U/L High 15 - 46 U/L [facility] Bilirubin [Mass/Vol] 1.0 mg/dL 0.2 - 1 .3 mg/dL [facility] Bilirubin.conjugated [Mass/Vol] 0.0 mg/dL 0.0 - 0.3 mg/dL [facility] Interpretation and review of laboratory results Abnormal [facility] Protein [Mass/Vol] 7.0 g/dL 6.3 - 8.2 g/dL [facility] Hepatic function 2000 panelo n 02-10-2023 Albumin [Mass/Vol] 4.4 g/dL 3.5 - 5.0 g/dL [facility] ALP [Catalytic activity/Vol] 98 U/L 38 - 126 U/L [facility] ALT [Catalytic activity/Vol] 153 U/L High 0 - 49 U/L [facility] AST [Catalytic activity/Vol] 121 U/L High 15 - 46 U/L [facility] Bilirubin [Mass/Vol] 1.2 mg/dL 0.2 - 1 .3 mg/dL [facility] Bilirubin.conjugated [Mass/Vol] 0.0 mg/dL 0.0 - 0.3 mg/dL [facility] Interpretation and review of laboratory results Abnormal [facility] Protein [Mass/Vol] 7.5 g/dL 6.3 - 8.2 g/dL [facility] CBC W Auto Differential pane l (Bld)Ordered By: Maite Fleming on 02-08-2023 Basophils (Bld) [#/Vol] 0.0 10*3/uL 0.0 - 0.2 10*3/uL [facility] Basophils/100 WBC (Bld) 1.0 % 0.0 - 2.0 % [facility] Eosinophils (Bld) [#/Vol] 0.0 10*3/uL 0.0 - 0.5 10*3/uL [facility] Eosinophils/100 WBC (Bld) 1.0 % 1.0 - 6.0 % [facility] Erythrocyte distribution width (RBC) [Ratio] 14.9 % High 11.5 - 14.5 % [facility] Hematocrit (Bld) [Volume fraction] 49.0 % 40.0 - 52.0 % [facility] Hemoglobin (Bld) [Mass/Vol] 16.8 g/dL 13.0 - 18.0 g/dL [facility] Interpretation and review of laboratory results Abnormal [facility] Lymphocytes (Bld) [#/Vol] 1.3 10*3/uL 1.0 - 4.3 10*3/uL [facility] Lymphocytes/100 WBC (Bld) 34.2 % 20.0 - 40.0 % [facility] MCH (RBC) [Entitic mass] 33.7 pg 26.0 - 34.0 pg [facility] MCHC (RBC) [Mass/Vol] 34.4 % 32.0 - 36.0 % [facility] MCV (RBC) [Entitic vol] 98.1 fL High 80.0 - 98.0 fL [facility] Monocytes (Bld) [#/Vol] 0.6 10*3/uL 0.0 - 0.8 10*3/uL [facility] Monocytes/100 WBC (Bld) 15.6 % High 2.0 - 10.0 % [facility] Neutrophils (Bld) [#/Vol] 1.8 10*3/uL 1.8 - 7.0 10*3/uL [facility] Neutrophils/100 WBC (Bld) 48.2 % 40.0 - 80.0 % [facility] Nucleated RBC/100 WBC (Bld) [Ratio] 0.0 % [facility] Platelet mean volume (Bld) [Entitic vol] 7.7 fL 7.4 - 12.4 fL [facility] Platelets (Bld) [#/Vol] 138 10*3/uL Low 140 - 440 10*3/uL [facility] RBC (Bld) [#/Vol] 4.99 10*6/uL 4.40 - 5.90 10*6/uL [facility] WBC (Bld) [#/Vol] 3.7 10*3/uL 3.6 - 10.7 10*3/uL [facility] Comprehensive metabolic 1998 panelon 02-08-2023 Albumin [Mass/Vol] 4.4 g/dL 3.5 - 5.0 g/dL [facility] ALP [Catalytic activity/Vol] 107 U/L 38 - 126 U/L [facility] ALT [Catalytic activity/Vol] 194 U/L High 0 - 49 U/L [facility] Anion gap [Moles/Vol] 14 mmol/L High 3 - 13 mmol/L [facility] AST [Catalytic activity/Vol] 207 U/L High 15 - 46 U/L [facility] Bilirubin [Mass/Vol] 0.8 mg/dL 0.2 - 1 .3 mg/dL [facility] Calcium [Mass/Vol] 8.4 mg/dL 8.4 - 10. 4 mg/dL [facility] Chloride [Moles/Vol] 92 mmol/L Low 98 - 10 7 mmol/L [facility] CO2 [Moles/Vol] 26 mmol/L 22 - 30 mmol/L [facility] Creatinine [Mass/Vol] 0.65 mg/dL Low 0.66 - 1.25 mg/dL [facility] GFR/1.73 sq M.predicted MDRD (S/P/Bld) [Vol rate/Area] - PINF [facility] Comment on above: Calculation based on the Chronic Kidney Disease Epidemiology Collaboration (CKD-EPI) equation refit without adjustment for race Glucose [Mass/Vol] 113 mg/dL High 70 - 100 mg/dL [facility] Interpretation and review of laboratory results Abnormal [facility] Potassium [Moles/Vol] 4.4 mmol/L 3.5 - 5.1 mmol/L [facility] Protein [Mass/Vol] 7.9 g/dL 6.3 - 8.2 g/dL [facility] Sodium [Moles/Vol] 132 mmol/L Low 135 - 145 mmol/L [facility] Urea nitrogen [Mass/Vol] 7 mg/dL Low 9 - 20 mg/dL [facility] Chemistry specimen i s slightly hemolyzed, interpret results with caution. [facility] Ethanol (Bld) [Mass/Vol]Orde red By: Jyotsna Peralta on 02-08-2023 Ethanol [Mass/Vol] 0.448 g/dL Critically high 0.000 - 0.010 g/dL [facility] Interpretation and review of laboratory results Abnormal [facility] Laboratory - Drug toxicology Ordered By: Nanette Elias on 02-08-2023 Amphetamines Screen method >1000 ng/mL Ql (U) Negative [facility] Barbiturates Screen method >200 ng/mL Ql (U) Negative [facility] Benzodiazepines Ql (U) Negative [facility] Methadone Screen Ql (U) Negative [facility] Opiates Screen Ql (U) Negative [facility] oxyCODONE Ql (U) Negative [facility] Phencyclidine Ql (U) Negative [facility] Laboratory - Microbiology an d Antimicrobial susceptibilityon 02-08-2023 FLUAV RNA NICOLAS+probe Ql (Resp) Not detected Not Detected [facility] FLUBV RNA NICOLAS+probe Ql (Resp) Not detected Not Detected [facility] RSV RNA NICOLAS+probe Ql (Resp) Not detected Not Detected [facility] SARS-CoV-2 (COVID-19) RNA NICOLAS+probe Ql (Resp) Not detected Not Detected [facility] SARS-CoV-2 (COVID-19) RNA NICOLAS+probe Ql (Unsp spec) Methodology: real-time, RT-PCR The SARS-CoV-2, Flu A/B, and RSV Combo assay is intended for in vitro diagnostic use under the FDA Emergency Use Authorization (EUA). This test has not been FDA cleared or approved. In compliance with this authorization, please visit www.fda.gov/media/263231/d ownload or www.fda.gov/media/252011/d ownload to access the applicable information sheets. [facility] No Panel InformationOrdered By: Nanette Elias on 02-08-2023 COCAINE METAB. SCREEN Negative [facility] The expected value f or all [...] is needed, request confirmation under separate order. [facility] SARS-CoV-2, Flu A/B, and RSV Comboon 02-08-2023 Interpretation and review of laboratory results Normal [facility] Urinalysis complete panel (U )on 02-08-2023 Bilirubin Ql (U) Negative Negative mg/dL [facility] Clarity (U) Clear Clear [facility] Color (U) Light Yellow Lt. Yellow [facility] Glucose Ql (U) Normal Normal (<70) mg/dL [facility] Hemoglobin Ql (U) Negative Negative mg/dL [facility] Interpretation and review of laboratory results Normal [facility] Ketones (U) [Mass/Vol] Negative Negat shiv mg/dL [facility] Leukocyte esterase Test strip Ql (U) Negative Negative Estefani/uL [facility] Nitrite Ql (U) Negative Negative [facility] pH (U) 5.5 [pH] 5.0 - 8.0 pH [facility] Protein (U) [Mass/Vol] Negative Negat shiv mg/dL [facility] Specific gravity (U) [Rel density] 1.005 1.005 - 1.030 [facility] Urobilinogen (U) [Mass/Vol] Normal Normal (0-1) mg/dL [facility] Cobalamin (Vitamin B12) [Mas s/Vol]on 11-01-2022 Interpretation and review of laboratory results Normal [facility] HbA1c (Bld) [Mass fraction]o n 11-01-2022 Average glucose Estimated from glycated hemoglobin (Bld) [Mass/Vol] 103 mg/dL [facility] Hemoglobin A1con 11-01-2022 HbA1c (Bld) [Mass fraction] 5.2 % NINF - 5.7 % [facility] Comment on above: Normal less than 5.7 % Prediabetes 5.7% to 6.4% Diabetes 6.5% or higher --HgbA1C levels may not be accurate in patients who have renal disease, received recent blood transfusions, are anemic, or who have dyshemoglobinemia. Iron and Iron binding capaci ty panelon 11-01-2022 Interpretation and review of laboratory results Normal [facility] Iron [Mass/Vol] 104 ug/dL 49 - 181 ug/dL [facility] Vitamin B12on 11-01-2022 Cobalamin (Vitamin B12) [Mass/Vol] 289 pg/mL 239 - 931 pg/mL [facility] CBC W Auto Differential pane l (Bld)Ordered By: Rosalee Troy on 09-29-2022 Basophils (Bld) [#/Vol] 0.1 10*3/uL 0.0 - 0.2 10*3/uL [facility] Basophils/100 WBC (Bld) 0.8 % 0.0 - 2.0 % [facility] Eosinophils (Bld) [#/Vol] 0.5 10*3/uL 0.0 - 0.5 10*3/uL [facility] Eosinophils/100 WBC (Bld) 5.0 % 1.0 - 6.0 % [facility] Erythrocyte distribution width (RBC) [Ratio] 12.1 % 11.5 - 14.5 % [facility] Hematocrit (Bld) [Volume fraction] 41.5 % 40.0 - 52.0 % [facility] Hemoglobin (Bld) [Mass/Vol] 14.2 g/dL 13.0 - 18.0 g/dL [facility] Immature granulocytes (Bld) [#/Vol] 0.0 10*3/uL NINF - 0.0 10*3/uL [facility] Immature granulocytes/100 WBC (Bld) 0.3 % High NINF - 0.0 % [facility] Interpretation and review of laboratory results Abnormal [facility] Lymphocytes (Bld) [#/Vol] 1.9 10*3/uL 1.0 - 4.3 10*3/uL [facility] Lymphocytes/100 WBC (Bld) 21.6 % 20.0 - 40.0 % [facility] MCH (RBC) [Entitic mass] 33.7 pg 26.0 - 34.0 pg [facility] MCHC (RBC) [Mass/Vol] 34.2 % 32.0 - 36.0 % [facility] MCV (RBC) [Entitic vol] 98.6 fL High 80.0 - 98.0 fL [facility] Monocytes (Bld) [#/Vol] 0.8 10*3/uL 0.0 - 0.8 10*3/uL [facility] Monocytes/100 WBC (Bld) 9.4 % 2.0 - 10.0 % [facility] Neutrophils (Bld) [#/Vol] 5.6 10*3/uL 1.8 - 7.0 10*3/uL [facility] Neutrophils/100 WBC (Bld) 62.9 % 40.0 - 80.0 % [facility] Platelet mean volume (Bld) [Entitic vol] 8.1 fL 7.4 - 12.4 fL [facility] Comment on above: MPV is a calculated measurement using platelet volume ratio Platelets (Bld) [#/Vol] 494 10*3/uL High 140 - 440 10*3/uL [facility] RBC (Bld) [#/Vol] 4.21 10*6/uL Low 4.40 - 5.90 10*6/uL [facility] WBC (Bld) [#/Vol] 9.0 10*3/uL 3.6 - 10.7 10*3/uL [facility] Comprehensive metabolic 1998 panelon 09-29-2022 Albumin [Mass/Vol] 3.8 g/dL 3.5 - 5.0 g/dL [facility] ALP [Catalytic activity/Vol] 83 U/L 38 - 126 U/L [facility] ALT [Catalytic activity/Vol] 38 U/L 0 - 49 U/L [facility] Anion gap [Moles/Vol] 4 mmol/L 3 - 13 mmol/L [facility] AST [Catalytic activity/Vol] 33 U/L 15 - 46 U/L [facility] Bilirubin [Mass/Vol] 0.3 mg/dL 0.2 - 1 .3 mg/dL [facility] Calcium [Mass/Vol] 8.5 mg/dL 8.4 - 10. 4 mg/dL [facility] Chloride [Moles/Vol] 101 mmol/L 98 - 10 7 mmol/L [facility] CO2 [Moles/Vol] 32 mmol/L High 22 - 30 mmol/L [facility] Creatinine [Mass/Vol] 0.76 mg/dL 0.66 - 1.25 mg/dL [facility] GFR/1.73 sq M.predicted MDRD (S/P/Bld) [Vol rate/Area] - PINF [facility] Comment on above: Calculation based on the Chronic Kidney Disease Epidemiology Collaboration (CKD-EPI) equation refit without adjustment for race Glucose [Mass/Vol] 112 mg/dL High 70 - 100 mg/dL [facility] Interpretation and review of laboratory results Abnormal [facility] Potassium [Moles/Vol] 3.7 mmol/L 3.5 - 5.1 mmol/L [facility] Protein [Mass/Vol] 6.8 g/dL 6.3 - 8.2 g/dL [facility] Sodium [Moles/Vol] 137 mmol/L 135 - 145 mmol/L [facility] Urea nitrogen [Mass/Vol] 6 mg/dL Low 9 - 20 mg/dL [facility] Hepatitis 1996 panel (S)on 0 09-29-2022 HAV IgM IA Ql Not detected Not Detected [employer] HBV core IgM IA Ql Not detected Not Detected [employer] HBV surface Ag IA Ql Not detected Not Detected [employer] HCV Ab IA Ql Not detected Not Detected [employer] Comment on above: Patients with DETECT ED Hepatitis C Ab results should have a new specimen submitted for supplemental testing with a Hepatitis C Quantitative RNA assay (viral load), if clinically indicated. Interpretation and review of laboratory results Normal [employer] No Panel InformationOrdered By: Katrina Spencer on 09-12-2022 P [place] 68 degrees [employer] Work Phone: TX Interval 156 ms That{img} Phone: QRS [place] 83 degrees That{img} Phone: QRSD Interval 85 ms That{img} Phone: QT Interval 339 ms That{img} Phone: QTC Interval 448 ms That{img} Phone: T Wave [place] 62 degrees That{img} Phone: That{img} Phone: No Panel Informationon 09-12 Sinus tachycardia Probable left atrial enlargement Borderline T abnormalities, anterior leads Electronically Signed On 09-12-2022 13:06:59 EDT by Katrina Spencer CV Katrina Lopez MD - 09/12/2022 IMPRESSION: Sinus tachycardia Probable left atrial enlargement Borderline T abnormalities, anterior leads Electronically Signed On 09-12-2022 13:06:59 EDT by Katrina Spencer [employer] Vital signsOrdered By: Brianna Spencer on 09-12-2022 Heart rate 105 /min bpm [employer] Work Phone: CBC W Auto Differential pane l (Bld)Ordered By: Magali Hawkins on 09-10-2022 Basophils (Bld) [#/Vol] 0.1 10*3/uL 0.0 - 0.2 10*3/uL [employer] Basophils/100 WBC (Bld) 1.4 % 0.0 - 2.0 % [employer] Eosinophils (Bld) [#/Vol] 0.0 10*3/uL 0.0 - 0.5 10*3/uL [facility] Eosinophils/100 WBC (Bld) 0.6 % Low 1.0 - 6.0 % [facility] Erythrocyte distribution width (RBC) [Ratio] 13.8 % 11.5 - 14.5 % [facility] Hematocrit (Bld) [Volume fraction] 49.7 % 40.0 - 52.0 % [facility] Hemoglobin (Bld) [Mass/Vol] 16.6 g/dL 13.0 - 18.0 g/dL [facility] Interpretation and review of laboratory results Abnormal [facility] Lymphocytes (Bld) [#/Vol] 1.2 10*3/uL 1.0 - 4.3 10*3/uL [facility] Lymphocytes/100 WBC (Bld) 23.3 % 20.0 - 40.0 % [facility] MCH (RBC) [Entitic mass] 33.4 pg 26.0 - 34.0 pg [facility] MCHC (RBC) [Mass/Vol] 33.5 % 32.0 - 36.0 % [facility] MCV (RBC) [Entitic vol] 100.0 fL High 80.0 - 98.0 fL [facility] Monocytes (Bld) [#/Vol] 0.7 10*3/uL 0.0 - 0.8 10*3/uL [facility] Monocytes/100 WBC (Bld) 14.2 % High 2.0 - 10.0 % [facility] Neutrophils (Bld) [#/Vol] 3.2 10*3/uL 1.8 - 7.0 10*3/uL [facility] Neutrophils/100 WBC (Bld) 60.5 % 40.0 - 80.0 % [facility] Nucleated RBC/100 WBC (Bld) [Ratio] 0.3 % [facility] Platelet mean volume (Bld) [Entitic vol] 7.7 fL 7.4 - 12.4 fL [facility] Platelets (Bld) [#/Vol] 183 10*3/uL 140 - 440 10*3/uL [facility] RBC (Bld) [#/Vol] 4.97 10*6/uL 4.40 - 5.90 10*6/uL [facility] WBC (Bld) [#/Vol] 5.3 10*3/uL 3.6 - 10.7 10*3/uL [facility] CK [Catalytic activity/Vol]o n 09-10-2022 Interpretation and review of laboratory results Normal [facility] CT Abdomen WO contraston 1. No evidence of ac darrian infectious or inflammatory process in the abdomen or pelvis. 2. The liver demonstrates generalized diminished attenuation as compared to the spleen, compatible with hepatic steatosis 3. Few scattered descending colon diverticula without evidence of acute diverticulitis Report Dictated on Electronically Signed By: Barry Lam Electronically Signed Date/Time: 09/10/2022 2:52 PM EDT [employer] Patient Name: [facility] DE [facility]ESUS [facility] 1965 [id number] Exam Date/Time: 09/10/2022 14:30 Procedure: CT ABDOMEN [...] structures: Multilevel spondylosis. No suspicious osseous lesion. [employer] Barry Lam MD - 09/10/2022 Patient Name: [...] Electronically Signed Date/Time: 09/10/2022 2:52 PM EDT [employer] Radiology Study observation (narrative) [employer] CT Abdomen WO contrastOrdere d By: Barry Lam on 09-10-2022 [employer] Work Phone: Comprehensive metabolic 1998 panelon 09-10-2022 Albumin [Mass/Vol] 4.2 g/dL 3.5 - 5.0 g/dL [facility] ALP [Catalytic activity/Vol] 140 U/L High 38 - 126 U/L [facility] ALT [Catalytic activity/Vol] 123 U/L High 0 - 49 U/L [facility] Anion gap [Moles/Vol] 10 mmol/L 3 - 13 mmol/L [facility] AST [Catalytic activity/Vol] 156 U/L High 15 - 46 U/L [facility] Bilirubin [Mass/Vol] 0.6 mg/dL 0.2 - 1 .3 mg/dL [facility] Calcium [Mass/Vol] 8.0 mg/dL Low 8.4 - 10. 4 mg/dL [facility] Chloride [Moles/Vol] 98 mmol/L 98 - 10 7 mmol/L [facility] CO2 [Moles/Vol] 24 mmol/L 22 - 30 mmol/L [facility] Creatinine [Mass/Vol] 0.57 mg/dL Low 0.66 - 1.25 mg/dL [facility] GFR/1.73 sq M.predicted MDRD (S/P/Bld) [Vol rate/Area] - PINF [facility] Comment on above: Calculation based on the Chronic Kidney Disease Epidemiology Collaboration (CKD-EPI) equation refit without adjustment for race Glucose [Mass/Vol] 141 mg/dL High 70 - 100 mg/dL [facility] Potassium [Moles/Vol] 4.3 mmol/L 3.5 - 5.1 mmol/L [facility] Protein [Mass/Vol] 7.5 g/dL 6.3 - 8.2 g/dL [facility] Sodium [Moles/Vol] 132 mmol/L Low 135 - 145 mmol/L [facility] Urea nitrogen [Mass/Vol] 6 mg/dL Low 9 - 20 mg/dL [facility] Slightly Hemolyzed. Interpret ALKALINE PHOSPHATASE, AST, and POTASSIUM with caution. [facility] Ethanol (Bld) [Mass/Vol]Orde red By: Ruchi Mancera on 09-10-2022 Ethanol [Mass/Vol] 0.384 g/dL Critically high 0.000 - 0.010 g/dL [facility] Interpretation and review of laboratory results Abnormal [facility] Slightly Hemolyzed. Interpret with caution. NOTE: This result is for medical treatment only. Analysis performed using non-forensic procedures. [facility] Laboratory - Chemistry and C hemistry - challengeon 09-10-2022 CK [Catalytic activity/Vol] 107 U/L 30 - 170 U/L [facility] Lipase [Catalytic activity/Vol] 389 U/L High 23 - 300 U/L [facility] Laboratory - Drug toxicology Ordered By: Zulma Nolan on 09-10-2022 Amphetamines Screen method >1000 ng/mL Ql (U) Negative [facility] Barbiturates Screen method >200 ng/mL Ql (U) Negative [facility] Benzodiazepines Ql (U) Negative [facility] Methadone Screen Ql (U) Negative [facility] Opiates Screen Ql (U) Negative [facility] oxyCODONE Ql (U) Negative [facility] Phencyclidine Ql (U) Negative [facility] Laboratory - Drug toxicology on 09-10-2022 Acetaminophen [Mass/Vol] ug/mL Low 10.0 - 30.0 ug/mL [facility] No Panel InformationOrdered By: Zulma Nolan on 09-10-2022 COCAINE METAB. SCREEN Negative [facility] The expected value f or all [...] is needed, request confirmation under separate order. [facility] No Panel Informationon 09-10 Interpretation and review of laboratory results Abnormal [facility] SARS-CoV-2 (COVID-19) RNA pa lowell NICOLAS+probe (Resp)on 09-10-2022 Interpretation and review of laboratory results Normal [facility] SARS-CoV-2 (COVID-19) RNA NICOLAS+probe Ql (Resp) Not detected Not Detected [facility] SARS-CoV-2 (COVID-19) RNA NICOLAS+probe Ql (Unsp spec) Methodology: real-time, RT-PCR The SARS-CoV-2 assay is intended for in vitro diagnostic use under the FDA Emergency Use Authorization (EUA). This test has not been FDA cleared or approved. In compliance with this authorization, please visit www.fda.gov/media/333337/d ownload or www.fda.gov/media/092320/d ownload to access the applicable information sheets. [facility] [employer] CBC panel Auto (Bld)Ordered By: Papito Emerson on 07-23-2022 Erythrocyte distribution width (RBC) [Ratio] 14.9 % High 11.5 - 14.5 % [employer] Hematocrit (Bld) [Volume fraction] 46.9 % 40.0 - 52.0 % [facility] [employer] Hemoglobin (Bld) [Mass/Vol] 15.9 g/dL 13.0 - 18.0 g/dL [facility] [employer] Interpretation and review of laboratory results Abnormal [facility] [employer] MCH (RBC) [Entitic mass] 33.3 pg 26.0 - 34.0 pg [facility] [employer] MCHC (RBC) [Mass/Vol] 34.0 % 32.0 - 36.0 % [facility] [employer] MCV (RBC) [Entitic vol] 98.1 fL High 80.0 - 98.0 fL [facility] [employer] Platelet mean volume (Bld) [Entitic vol] 6.9 fL Low 7.4 - 12.4 fL [facility] [employer] Platelets (Bld) [#/Vol] 198 10*3/uL 140 - 440 10*3/uL [facility] [employer] RBC (Bld) [#/Vol] 4.78 10*6/uL 4.40 - 5.90 10*6/uL [facility] [employer] WBC (Bld) [#/Vol] 5.8 10*3/uL 3.6 - 10.7 10*3/uL [facility] [employer] Comprehensive metabolic 1998 panelon 07-23-2022 Albumin [Mass/Vol] 4.2 g/dL 3.5 - 5.0 g/dL [facility] [employer] ALP [Catalytic activity/Vol] 126 U/L 38 - 126 U/L [facility] [employer] ALT [Catalytic activity/Vol] 36 U/L 0 - 49 U/L [facility] [employer] Anion gap [Moles/Vol] 1 mmol/L Low 3 - 13 mmol/L [facility] AST [Catalytic activity/Vol] 40 U/L 15 - 46 U/L [facility] Bilirubin [Mass/Vol] 1.0 mg/dL 0.2 - 1 .3 mg/dL [facility] Calcium [Mass/Vol] 8.6 mg/dL 8.4 - 10. 4 mg/dL [facility] Chloride [Moles/Vol] 95 mmol/L Low 98 - 10 7 mmol/L [facility] CO2 [Moles/Vol] 36 mmol/L High 22 - 30 mmol/L [facility] Creatinine [Mass/Vol] 0.77 mg/dL 0.66 - 1.25 mg/dL [facility] GFR/1.73 sq M.predicted MDRD (S/P/Bld) [Vol rate/Area] - PINF [facility] Comment on above: Calculation based on the Chronic Kidney Disease Epidemiology Collaboration (CKD-EPI) equation refit without adjustment for race Glucose [Mass/Vol] 98 mg/dL 70 - 100 mg/dL [facility] Interpretation and review of laboratory results Abnormal [facility] Potassium [Moles/Vol] 4.0 mmol/L 3.5 - 5.1 mmol/L [facility] Protein [Mass/Vol] 7.5 g/dL 6.3 - 8.2 g/dL [facility] Sodium [Moles/Vol] 132 mmol/L Low 135 - 145 mmol/L [facility] Urea nitrogen [Mass/Vol] 10 mg/dL 9 - 20 mg/dL [facility] CBC panel Auto (Bld)Ordered By: Inés Brewer on 07-22-2022 Erythrocyte distribution width (RBC) [Ratio] 15.5 % High 11.5 - 14.5 % [facility] Hematocrit (Bld) [Volume fraction] 47.1 % 40.0 - 52.0 % [facility] Hemoglobin (Bld) [Mass/Vol] 15.6 g/dL 13.0 - 18.0 g/dL [facility] Interpretation and review of laboratory results Abnormal [facility] MCH (RBC) [Entitic mass] 32.8 pg 26.0 - 34.0 pg [facility] MCHC (RBC) [Mass/Vol] 33.2 % 32.0 - 36.0 % [facility] MCV (RBC) [Entitic vol] 98.7 fL High 80.0 - 98.0 fL [facility] Platelet mean volume (Bld) [Entitic vol] 6.8 fL Low 7.4 - 12.4 fL [facility] Platelets (Bld) [#/Vol] 201 10*3/uL 140 - 440 10*3/uL [facility] RBC (Bld) [#/Vol] 4.77 10*6/uL 4.40 - 5.90 10*6/uL [facility] WBC (Bld) [#/Vol] 5.7 10*3/uL 3.6 - 10.7 10*3/uL [facility] Comprehensive metabolic 1998 panelon 07-22-2022 Albumin [Mass/Vol] 4.1 g/dL 3.5 - 5.0 g/dL [facility] ALP [Catalytic activity/Vol] 122 U/L 38 - 126 U/L [facility] ALT [Catalytic activity/Vol] 43 U/L 0 - 49 U/L [facility] Anion gap [Moles/Vol] 7 mmol/L 3 - 13 mmol/L [facility] AST [Catalytic activity/Vol] 49 U/L High 15 - 46 U/L [facility] Bilirubin [Mass/Vol] 0.6 mg/dL 0.2 - 1 .3 mg/dL [facility] Calcium [Mass/Vol] 8.0 mg/dL Low 8.4 - 10. 4 mg/dL [facility] Chloride [Moles/Vol] 100 mmol/L 98 - 10 7 mmol/L [facility] CO2 [Moles/Vol] 26 mmol/L 22 - 30 mmol/L [facility] Creatinine [Mass/Vol] 0.85 mg/dL 0.66 - 1.25 mg/dL [facility] GFR/1.73 sq M.predicted MDRD (S/P/Bld) [Vol rate/Area] - PINF [facility] Comment on above: Calculation based on the Chronic Kidney Disease Epidemiology Collaboration (CKD-EPI) equation refit without adjustment for race Glucose [Mass/Vol] 97 mg/dL 70 - 100 mg/dL [facility] Interpretation and review of laboratory results Abnormal [facility] Potassium [Moles/Vol] 4.0 mmol/L 3.5 - 5.1 mmol/L [facility] Protein [Mass/Vol] 7.3 g/dL 6.3 - 8.2 g/dL [facility] Sodium [Moles/Vol] 133 mmol/L Low 135 - 145 mmol/L [facility] Urea nitrogen [Mass/Vol] 11 mg/dL 9 - 20 mg/dL [facility] Blood type and Crossmatch neva etienne (Bld)on 07-21-2022 ABO group Nom (Bld) A [facility] Blood group antibody screen GEL Ql Negative [facility] D Ag Ql (RBC) Positive [facility] CBC W Auto Differential pane l (Bld)Ordered By: Jacqueline Smith on 07-21-2022 Basophils (Bld) [#/Vol] 0.1 10*3/uL 0.0 - 0.2 10*3/uL [facility] Basophils/100 WBC (Bld) 1.2 % 0.0 - 2.0 % [facility] Eosinophils (Bld) [#/Vol] 0.1 10*3/uL 0.0 - 0.5 10*3/uL [facility] Eosinophils/100 WBC (Bld) 1.2 % 1.0 - 6.0 % [facility] Erythrocyte distribution width (RBC) [Ratio] 15.4 % High 11.5 - 14.5 % [facility] Hematocrit (Bld) [Volume fraction] 46.9 % 40.0 - 52.0 % [facility] Hemoglobin (Bld) [Mass/Vol] 16.0 g/dL 13.0 - 18.0 g/dL [facility] Interpretation and review of laboratory results Abnormal [facility] Lymphocytes (Bld) [#/Vol] 1.9 10*3/uL 1.0 - 4.3 10*3/uL [facility] Lymphocytes/100 WBC (Bld) 31.1 % 20.0 - 40.0 % [facility] MCH (RBC) [Entitic mass] 33.5 pg 26.0 - 34.0 pg [facility] MCHC (RBC) [Mass/Vol] 34.1 % 32.0 - 36.0 % [facility] MCV (RBC) [Entitic vol] 98.4 fL High 80.0 - 98.0 fL [facility] Monocytes (Bld) [#/Vol] 0.6 10*3/uL 0.0 - 0.8 10*3/uL [facility] Monocytes/100 WBC (Bld) 9.8 % 2.0 - 10.0 % [facility] [employer] Neutrophils (Bld) [#/Vol] 3.5 10*3/uL 1.8 - 7.0 10*3/uL [employer] Neutrophils/100 WBC (Bld) 56.7 % 40.0 - 80.0 % [employer] Nucleated RBC/100 WBC (Bld) [Ratio] 0.1 % [employer] Platelet mean volume (Bld) [Entitic vol] 6.8 fL Low 7.4 - 12.4 fL [facility] [employer] Platelets (Bld) [#/Vol] 211 10*3/uL 140 - 440 10*3/uL [facility] [employer] RBC (Bld) [#/Vol] 4.77 10*6/uL 4.40 - 5.90 10*6/uL [facility] [employer] WBC (Bld) [#/Vol] 6.2 10*3/uL 3.6 - 10.7 10*3/uL [facility] [employer] [facility] CT Abdomen and Pelvis W cont rast Main 07-21-2022 No acute abdominal o r pelvic findings to explain symptoms. Hepatic steatosis. Sigmoid diverticulosis. Report Dictated on Workstation: [id number] Electronically Signed By: Joon Foley Electronically Signed [...] None. Osseous structures: Lumbar degenerative spondylosis. [facility] RADIOLOGY SYSTEM Joon Foley DO - 07/21/2022 Patient Name: [facility] DE JESUS HOGAN [facility] 1965 [id number] Exam Date/Time: 07/21/2022 17:53 Procedure: CT ABDOMEN [...] Electronically Signed Date/Time: 07/21/2022 6:02 PM EDT [facility] Radiology Study observation (narrative) [facility] CT Abdomen and Pelvis W cont rast IVOrdered By: Joon Foley on 07-21-2022 [facility] [employer] Work Phone: Cobalamin (Vitamin B12) [Mas s/Vol]on 07-21-2022 Interpretation and review of laboratory results Normal [facility] Comprehensive metabolic 1998 panelon 07-21-2022 Albumin [Mass/Vol] 4.2 g/dL 3.5 - 5.0 g/dL [facility] ALP [Catalytic activity/Vol] 124 U/L 38 - 126 U/L [facility] ALT [Catalytic activity/Vol] 43 U/L 0 - 49 U/L [facility] Anion gap [Moles/Vol] 11 mmol/L 3 - 13 mmol/L [facility] AST [Catalytic activity/Vol] 56 U/L High 15 - 46 U/L [facility] Bilirubin [Mass/Vol] 0.5 mg/dL 0.2 - 1 .3 mg/dL [facility] Calcium [Mass/Vol] 8.5 mg/dL 8.4 - 10. 4 mg/dL [facility] Chloride [Moles/Vol] 101 mmol/L 98 - 10 7 mmol/L [facility] CO2 [Moles/Vol] 24 mmol/L 22 - 30 mmol/L [facility] Creatinine [Mass/Vol] 0.85 mg/dL 0.66 - 1.25 mg/dL [facility] GFR/1.73 sq M.predicted MDRD (S/P/Bld) [Vol rate/Area] - PINF [facility] Comment on above: Calculation based on the Chronic Kidney Disease Epidemiology Collaboration (CKD-EPI) equation refit without adjustment for race Glucose [Mass/Vol] 98 mg/dL 70 - 100 mg/dL [facility] Interpretation and review of laboratory results Abnormal [facility] Potassium [Moles/Vol] 4.1 mmol/L 3.5 - 5.1 mmol/L [facility] Protein [Mass/Vol] 7.4 g/dL 6.3 - 8.2 g/dL [facility] Sodium [Moles/Vol] 136 mmol/L 135 - 145 mmol/L [facility] Urea nitrogen [Mass/Vol] 8 mg/dL Low 9 - 20 mg/dL [facility] Drug screen panel, emergency on 07-21-2022 Amphetamines Screen method >1000 ng/mL Ql (U) Negative [facility] Barbiturates Screen method >200 ng/mL Ql (U) Negative [facility] Benzodiazepines Ql (U) Negative [facility] COCAINE METAB. SCREEN Negative [facility] Methadone Screen Ql (U) Negative [facility] Opiates Screen Ql (U) Negative [facility] oxyCODONE Ql (U) Negative [facility] Phencyclidine Ql (U) Negative [facility] The expected value f or [...] is needed, request confirmation under separate order. [facility] ECG 12 leadon 07-21-2022 Heart rate 95 /min bpm [facility] P [place] 50 degrees [facility] [place] Interval 188 ms [facility] QRS [place] 44 degrees [facility] QRSD Interval 94 ms [facility] QT Interval 372 ms [facility] QTC Interval 468 ms [facility] T Wave [place] 50 degrees [facility] SINUS RHYTHM PROBABLE LEFT ATRIAL ABNORMALITY RSR' IN V1 OR V2, RIGHT VCD OR RVH Compared to ECG 06/06/2021 16:40:22 Electronically Signed On 07-21-2022 21:01:15 EDT by Arsenio Titus DO - 07/21/2022 IMPRESSION: SINUS RHYTHM PROBABLE LEFT ATRIAL ABNORMALITY RSR' IN V1 OR V2, RIGHT VCD OR RVH Compared to ECG 06/06/2021 16:40:22 Electronically Signed On 07-21-2022 21:01:15 EDT by Arsenio Villalta [facility] Ethanol (Bld) [Mass/Vol]on 0 07-21-2022 Ethanol [Mass/Vol] 0.323 g/dL Critically high 0.000 - 0.010 g/dL [facility] Interpretation and review of laboratory results Abnormal [facility] Lipaseon 07-21-2022 Lipase [Catalytic activity/Vol] 209 U/L 23 - 300 U/L [facility] Lipase [Catalytic activity/V ol]on 07-21-2022 Interpretation and review of laboratory results Normal [facility] Magnesiumon 07-21-2022 Magnesium [Mass/Vol] 2.1 mg/dL 1.6 - 2 .3 mg/dL [facility] Magnesium [Mass/Vol]on 07-21 Interpretation and review of laboratory results Normal [facility] No Panel Informationon 07-21 [facility] PT Coag (Bld) [Time]on 07-21 INR Coag (PPP) [Relative time] 0.9 {INR} 0.9 - 1.1 [facility] Comment on above: Recommended Anticoag ulant Therapy: [...] Interpretation and review of laboratory results Normal [facility] Phosphate [Moles/Vol]on 07-01 Interpretation and review of laboratory results Abnormal [facility] Phosphate [Mass/Vol] 4.6 mg/dL High 2.5 - 4 .5 mg/dL [facility] Protime-INRon 07-21-2022 PT Coag (Bld) [Time] 10.3 s 9.0 - 1 2.0 s [facility] SARS-CoV-2, Flu A/B, and RSV Comboon 07-21-2022 FLUAV RNA NICOLAS+probe Ql (Resp) Not detected Not Detected [facility] FLUBV RNA NICOLAS+probe Ql (Resp) Not detected Not Detected [facility] Interpretation and review of laboratory results Normal [facility] RSV RNA NICOLAS+probe Ql (Resp) Not detected Not Detected [facility] SARS-CoV-2 (COVID-19) RNA NICOLAS+probe Ql (Resp) Not detected Not Detected [facility] SARS-CoV-2 (COVID-19) RNA NICOLAS+probe Ql (Unsp spec) Methodology: real-time, RT-PCR The SARS-CoV-2, Flu A/B, and RSV Combo assay is intended for in vitro diagnostic use under the FDA Emergency Use Authorization (EUA). This test has not been FDA cleared or approved. In compliance with this authorization, please visit www.fda.gov/media/151149/d ownload or www.[employer].gov/media/411520/d ownload to access the applicable information sheets. [facility] TSHon 07-21-2022 TSH Qn 2.092 m[IU]/L [facility] TSH Qnon 07-21-2022 Interpretation and review of laboratory results Normal [facility] Troponin Ion 07-21-2022 Troponin I.cardiac [Mass/Vol] ng/mL 0.000 - 0.034 ng/mL [facility] Troponin I.cardiac [Mass/Vol ]on 07-21-2022 Interpretation and review of laboratory results Normal [facility] Patients with high l evels of Biotin oral intake (ie >5 mg/day) may have falsely decreased Troponin levels. [facility] Urinalysis complete panel (U )on 07-21-2022 Bilirubin Ql (U) Negative Negative mg/dL [facility] Clarity (U) Clear Clear [facility] Color (U) Colorless Lt. Yellow [facility] Glucose Ql (U) Normal Normal (<70) mg/dL [facility] Hemoglobin Ql (U) Negative Negative mg/dL [facility] Interpretation and review of laboratory results Abnormal [facility] Ketones (U) [Mass/Vol] Negative Negat shiv mg/dL [facility] Leukocyte esterase Test strip Ql (U) Negative Negative Estefani/uL [facility] Nitrite Ql (U) Negative Negative [facility] pH (U) 5.0 [pH] 5.0 - 8.0 pH [facility] Protein (U) [Mass/Vol] Negative Negat shiv mg/dL [facility] Specific gravity (U) [Rel density] 1.003 Low 1.005 - 1.030 [facility] Urobilinogen (U) [Mass/Vol] Normal Normal (0-1) mg/dL [facility] Vitamin B12on 07-21-2022 Cobalamin (Vitamin B12) [Mass/Vol] 264 pg/mL 239 - 931 pg/mL [facility] XR Lumbar spine 4 Viewson No acute osseous abnormality of the lumbar spine. Moderate facet arthrosis of the lower lumbar spine. Report Dictated on Electronically Signed By: Maria De Jesus Marcelo Electronically Signed Date/Time: 07/10/2022 3:34 PM EDT [facility] [employer] Patient Name: MARIA DE JESUS SÁNCHEZ [...] Atherosclerotic calcifications of the abdominal aorta. [facility] RADI[facility]Y [facility] Ivett Marcelo MD - 07/10/2022 [...] Electronically Signed Date/Time: 07/10/2022 3:34 PM EDT [facility] [employer] XR Lumbar spine 4 ViewsOrder ed By: Ivett Marcelo on 07-10-2022 [facility] [employer] Work Phone: CBC W Auto Differential pane l (Bld)Ordered By: Jinny Phelps on 07-09-2022 Basophils (Bld) [#/Vol] 0.1 10*3/uL 0.0 - 0.2 10*3/uL [facility] [employer] Basophils/100 WBC (Bld) 1.1 % 0.0 - 2.0 % [facility] [employer] Eosinophils (Bld) [#/Vol] 0.1 10*3/uL 0.0 - 0.5 10*3/uL [facility] [employer] Eosinophils/100 WBC (Bld) 1.9 % 1.0 - 6.0 % [facility] [employer] Erythrocyte distribution width (RBC) [Ratio] 14.6 % High 11.5 - 14.5 % [facility] [employer] Hematocrit (Bld) [Volume fraction] 47.4 % 40.0 - 52.0 % [facility] [employer] Hemoglobin (Bld) [Mass/Vol] 16.6 g/dL 13.0 - 18.0 g/dL [facility] [employer] Immature granulocytes (Bld) [#/Vol] 0.0 10*3/uL NINF - 0.0 10*3/uL [facility] Immature granulocytes/100 WBC (Bld) 0.3 % High NINF - 0.0 % [facility] Interpretation and review of laboratory results Abnormal [facility] Lymphocytes (Bld) [#/Vol] 2.3 10*3/uL 1.0 - 4.3 10*3/uL [facility] Lymphocytes/100 WBC (Bld) 36.3 % 20.0 - 40.0 % [facility] MCH (RBC) [Entitic mass] 33.3 pg 26.0 - 34.0 pg [facility] MCHC (RBC) [Mass/Vol] 35.0 % 32.0 - 36.0 % [facility] MCV (RBC) [Entitic vol] 95.0 fL 80.0 - 98.0 fL [facility] Monocytes (Bld) [#/Vol] 0.9 10*3/uL High 0.0 - 0.8 10*3/uL [facility] Monocytes/100 WBC (Bld) 13.9 % High 2.0 - 10.0 % [facility] Neutrophils (Bld) [#/Vol] 2.9 10*3/uL 1.8 - 7.0 10*3/uL [facility] Neutrophils/100 WBC (Bld) 46.5 % 40.0 - 80.0 % [facility] Platelet mean volume (Bld) [Entitic vol] 8.2 fL 7.4 - 12.4 fL [facility] Comment on above: MPV is a calculated measurement using platelet volume ratio Platelets (Bld) [#/Vol] 254 10*3/uL 140 - 440 10*3/uL [facility] RBC (Bld) [#/Vol] 4.99 10*6/uL 4.40 - 5.90 10*6/uL [facility] WBC (Bld) [#/Vol] 6.3 10*3/uL 3.6 - 10.7 10*3/uL [facility] Comprehensive metabolic 1998 panelon 07-09-2022 Albumin [Mass/Vol] 4.5 g/dL 3.5 - 5.0 g/dL [facility] ALP [Catalytic activity/Vol] 103 U/L 38 - 126 U/L [facility] ALT [Catalytic activity/Vol] 43 U/L 0 - 49 U/L [facility] Anion gap [Moles/Vol] 6 mmol/L 3 - 13 mmol/L [facility] AST [Catalytic activity/Vol] 40 U/L 15 - 46 U/L [facility] Bilirubin [Mass/Vol] 0.4 mg/dL 0.2 - 1 .3 mg/dL [facility] Calcium [Mass/Vol] 8.8 mg/dL 8.4 - 10. 4 mg/dL [facility] Chloride [Moles/Vol] 97 mmol/L Low 98 - 10 7 mmol/L [facility] CO2 [Moles/Vol] 31 mmol/L High 22 - 30 mmol/L [facility] Creatinine [Mass/Vol] 0.74 mg/dL 0.66 - 1.25 mg/dL [facility] GFR/1.73 sq M.predicted MDRD (S/P/Bld) [Vol rate/Area] - PINF [facility] Comment on above: Calculation based on the Chronic Kidney Disease Epidemiology Collaboration (CKD-EPI) equation refit without adjustment for race Glucose [Mass/Vol] 131 mg/dL High 70 - 100 mg/dL [facility] Potassium [Moles/Vol] 4.0 mmol/L 3.5 - 5.1 mmol/L [facility] Protein [Mass/Vol] 7.6 g/dL 6.3 - 8.2 g/dL [facility] Sodium [Moles/Vol] 134 mmol/L Low 135 - 145 mmol/L [facility] Urea nitrogen [Mass/Vol] 6 mg/dL Low 9 - 20 mg/dL [facility] Lipid 1996 panelon 3 Cholesterol [Mass/Vol] 242 mg/dL High NINF - 200 mg/dL [facility] Cholesterol in HDL [Mass/Vol] 70 mg/dL High 40 - 60 mg/dL [facility] Cholesterol in LDL [Mass/Vol] 147 mg/dL High 0 - <100 [facility] Cholesterol.total/Nicole sterol in HDL [Mass ratio] 3 {ratio} [facility] Comment on above: Ref Range: < 3 Low Risk for CHD 3-6 Mod Risk for CHD > 6 High Risk for CHD Triglyceride [Mass/Vol] 126 mg/dL NINF - 150 mg/dL [facility] No Panel Informationon 07-09 Interpretation and review of laboratory results Abnormal [facility] Radiology Study observation (narrative) [facility] PSA Screeningon 07-09-2022 Interpretation and review of laboratory results Normal [facility] [employer] Prostate specific Ag [Mass/Vol] 1.035 ng/mL NINF - 4.000 ng/mL [facility] [employer] Testing performed on the [employer] using an immunometric methodology. Results obtained by different methods should not be used interchangeably. [facility] [employer] XR Shoulder - left 2 Viewson 07-09-2022 Negative examination of the shoulder. Report Dictated on Electronically Signed By: Onesimo Trejo Electronically Signed Date/Time: 07/09/2022 3:01 PM EDT [facility] Patient Name: MARIA DE JESUS [...] abnormalities. The left lung apex is clear. [facility] Neil Onesimo, DO - 07/09/2022 Patient Name: [...] Electronically Signed Date/Time: 07/09/2022 3:01 PM EDT [facility] XR Shoulder - left 2 ViewsOr dered By: Onesimo Trejo on 07-09-2022 [facility] Work Phone: Phenobarbitalon 10-28-2021 PHENobarbital [Mass/Vol] 17.4 ug/mL Normal 10.0-40.0 [facility] Comment on above: Performed By: #### P HNO3 #### [facility] [address] [address] Comp Metabolic Panelon 10-25 ALP [Catalytic activity/Vol] 105 U/L Normal 38-126 [facility] Comment on above: Performed By: #### A DDON #### [facility] [address] [place] [address] ALT [Catalytic activity/Vol] 76 U/L High 0-49 [facility] Comment on above: Result Comment: The ALT test is performed by an updated assay method. Please note that the reference intervals have been changed and are now sex specific. Performed By: #### A DDON #### [facility] [address] [place] [address] Anion gap [Moles/Vol] 10 mmol/L Normal 3-13 [facility] Comment on above: Performed By: #### A DDON #### [facility] [address] [place] [address] AST [Catalytic activity/Vol] 79 U/L High 15-46 [facility] Comment on above: Performed By: #### A DDON #### [facility] [address] [place] [address] Calcium [Mass/Vol] 8.8 mg/dL Normal 8.4-10.4 [facility] Comment on above: Performed By: #### A DDON #### [facility] [address] [place] [address] CO2 [Moles/Vol] 26 mmol/L Normal 22-30 [facility] Comment on above: Performed By: #### A DDON #### [facility] [address] [place] [address] Glucose [Mass/Vol] 89 mg/dL Normal 70-100 [facility] Comment on above: Performed By: #### A DDON #### [facility] [address] [place] [address] Protein [Mass/Vol] 7.2 g/dL Normal 6.3-8.2 [facility] Comment on above: Performed By: #### A DDON #### [facility] [address] [place] [address] Urea nitrogen [Mass/Vol] 2 mg/dL Low 7-17 [facility] Comment on above: Performed By: #### A DDON #### [facility] [address] [place] [address] Bilirubin [Mass/Vol] 0.4 mg/dL Normal 0.2-1.3 [facility] Comment on above: Performed By: #### A DDON #### [facility] [address] [place] [address] Creatinine [Mass/Vol] 0.62 mg/dL Normal 0.52-1.25 [facility] Comment on above: Performed By: #### A DDON #### [facility] [address] [place] [address] eGFR OTHER > 90.0 Normal >60 [facility] Comment on above: Result Comment: [...] secretion. Performed By: #### A DDON #### [facility] [address] [place] [address] GFR/1.73 sq M.predicted among blacks MDRD (S/P/Bld) [Vol rate/Area] mL/min/{1.73_m2} Normal >60 [facility] Comment on above: Performed By: #### A DDON #### [facility] [address] [place] [address] Albumin [Mass/Vol] 4.3 g/dL Normal 3.5-5.0 [facility] Comment on above: Performed By: #### A DDON #### [facility] [address] [place] [address] Chloride [Moles/Vol] 103 mmol/L Normal 98-107 [facility] Comment on above: Performed By: #### A DDON #### [facility] [address] [place] [place] [address] Potassium [Moles/Vol] 4.2 mmol/L Normal 3.5-5.1 [facility] Comment on above: Performed By: #### A DDON #### [facility] [address] [place] [address] Sodium [Moles/Vol] 139 mmol/L Normal 135-145 [facility] Comment on above: Performed By: #### A DDON #### [facility] [address] [place] [address] Complete Urinalysison 2021 Appearance (U) Clear Normal Clear [facility] Comment on above: Result Comment: . Performed By: #### A DDON #### [facility] [address] [place] [address] Bilirubin,Urine Negative Normal Negative [facility] Comment on above: Result Comment: . Performed By: #### A DDON #### [facility] [address] [place] [address] Color (U) Colorless Normal Lt. Yellow [facility] Comment on above: Result Comment: . Performed By: #### A DDON #### [facility] [address] [place] [address] Glucose Ql (U) Normal Normal Normal (<70) [facility] Comment on above: Result Comment: . Performed By: #### A DDON #### [facility] [address] [place] [address] Ketone,Urine Negative Normal Negative [facility] Comment on above: Result Comment: . Performed By: #### A DDON #### [facility] [address] [place] [address] Leukocytes,Urine Negative Normal Negative [facility] Comment on above: Result Comment: . Performed By: #### A DDON #### [facility] [address] [place] [address] Nitrites,Urine Negative Normal Negative [facility] Comment on above: Result Comment: . Performed By: #### A DDON #### [facility] [address] [place] [address] Occult Blood,Urine Negative Normal Negative [facility] Comment on above: Result Comment: . Performed By: #### A DDON #### [facility] [address] [place] [address] pH,Urine 5.5 Normal 5.0-8.0 [facility] Comment on above: Result Comment: . Performed By: #### A DDON #### [facility] [address] [place] [address] Specific [place],Urine < 1.005 Abnormal 1.005 - 1.030 [facility] Comment on above: Result Comment: . Performed By: #### A DDON #### [facility] [address] [place] [address] Total Protein,Urine Negative Normal Negative [facility] Comment on above: Result Comment: . Performed By: #### A DDON #### [facility] [address] [place] [address] Urobilinogen,Urine Normal Normal Normal (0-1) [facility] Comment on above: Result Comment: . Performed By: #### A DDON #### [facility] [address] [place] [address] Drugs of Abuseon 10-25-2021 Opiates, Ur Negative Normal [facility] Comment on above: Performed By: #### A DDON #### [facility] [address] [place] [address] Phencyclidine (PCP), Ur Negative Normal [facility] Comment on above: Result Comment: The [...] order. Performed By: #### A DDON #### [facility] [address] [place] [address] Methadone, Ur Negative [facility] Comment on above: Performed By: #### A DDON #### [facility] [address] [place] [address] Benzodiazepines, Ur Negative Normal [facility] Comment on above: Performed By: #### A DDON #### [facility] [address] [place] [address] Cocaine, Ur Negative Normal [facility] Comment on above: Performed By: #### A DDON #### [facility] [address] [place] [address] Barbiturates, Ur Negative Normal [facility] Comment on above: Performed By: #### A DDON #### [facility] [address] [place] [address] Amphetamines, Ur Negative Normal [facility] Comment on above: Performed By: #### A DDON #### [address] [place] [address] Oxycodone/Oxymorphine,U r Negative Normal [facility] Comment on above: Performed By: #### A DDON #### [address] [place] [address] ED Provider Noteon 2 ED Provider Note [...] with plan for inpatient detox admission at [place] pending bed availability, patient in agreement with [...] are mis-transcribed.) Harjinder Saeed MD Acute Care [facility] Harjinder Saeed MD 10/25/211918 [facility] ED Provider Note B [facility] ED eMERGENCY dEPARTMENT eNCOUnter Pt Name: Maria [...] Date Alcohol abuse Alcohol dependence with withdrawal ([facility]) 08/31/2019 Alcohol intoxication without use disorder, uncomplicated ([facility]) 10/01/2019 Alcohol withdrawal, uncomplicated ([facility]) 08/31/2019 Alcohol withdrawal, with unspecified complication ([facility]) 10/02/2019 Alcohol withdrawal, with unspecified complication ([facility]) 10/02/2019 Alcoholism ([facility]) Anxiety Cerebral artery occlusion with cerebral infarction ([facility]) Cerebrovascular disease Depression Hypertension Insomnia SURGICALHISTORY Past [...] 9-10 per day Drug use: No SCREENINGS [place] Coma Scale Eye Opening: Spontaneous Best Verbal [...] reviewed. Constitutio (more content not included)... Normal [facility] Ethanol Serum/Plasmaon 10-25 Ethanol-Serum/Plasma 0.393 g/dL Critically high 0.00 0-0.01 0 [facility] Comment on above: Result Comment: NOTE : This result is for medical treatment only. Analysis performed using non-forensic procedures. Performed By: #### A DDON #### [facility] [address] [place] [address] Hemogram w/ Autodiffon 10-25 Abs Baso Cnt 0.0 10*3/uL Normal 0.0-0.2 [facility] Comment on above: Performed By: #### A DDON #### [facility] [address] [place] [place] [address] Abs Neutrophile Cnt 2.2 10*3/uL Normal 1.8-7.0 [facility] Comment on above: Performed By: #### A DDON #### [facility] [address] [place] [address] Basophils/100 WBC (Bld) 1.0 % Normal 0.0-2.0 [facility] Comment on above: Performed By: #### A DDON #### [facility] [address] [place] [address] Eosinophils (Bld) [#/Vol] 0.1 10*3/uL Normal 0.0-0.5 [facility] Comment on above: Performed By: #### A DDON #### [facility] [address] [place] [address] Eosinophils/100 WBC (Bld) 1.9 % Normal 1.0-6.0 [facility] Comment on above: Performed By: #### A DDON #### [facility] [address] [place] [address] Erythrocyte distribution width (RBC) [Ratio] 14.0 % Normal 11.5-14.5 [facility] Comment on above: Performed By: #### A DDON #### [facility] [address] [place] [address] Granulocytes/100 WBC (Bld) 45.6 % Normal 40.0-80.0 [facility] Comment on above: Performed By: #### A DDON #### [facility] [address] [place] [address] Hematocrit (Bld) [Volume fraction] 46.1 % Normal 40.0-52.0 [facility] Comment on above: Performed By: #### A DDON #### [facility] [address] [place] [address] Hemoglobin (Bld) [Mass/Vol] 15.7 g/dL Normal 13.0-18.0 [facility] Comment on above: Performed By: #### A DDON #### [facility] [address] [place] [address] Lymphocytes (Bld) [#/Vol] 1.8 10*3/uL Normal 1.0-4.3 [facility] Comment on above: Performed By: #### A DDON #### [facility] [address] [place] [address] Lymphocytes/100 WBC (Bld) 38.9 % Normal 20.0-40.0 [facility] Comment on above: Performed By: #### A DDON #### [facility] [address] [place] [address] MCH (RBC) [Entitic mass] 33.8 pg Normal 26.0-34.0 [facility] Comment on above: Performed By: #### A DDON #### [facility] [address] [place] [address] MCHC 34.0 % Normal 32.0-36.0 [facility] Comment on above: Performed By: #### A DDON #### [facility] [address] [place] [address] MCV (RBC) [Entitic vol] 99.1 fL High 80.0-98.0 [facility] Comment on above: Performed By: #### A DDON #### [facility] [address] [place] [address] Monocytes (Bld) [#/Vol] 0.6 10*3/uL Normal 0.0-0.8 [facility] Comment on above: Performed By: #### A DDON #### [facility] [address] [place] [address] Monocytes/100 WBC (Bld) 12.6 % High 2.0-10.0 [facility] Comment on above: Performed By: #### A DDON #### [facility] [address] [place] [address] Platelet mean volume (Bld) [Entitic vol] 6.8 fL Low 7.4-12.4 [facility] Comment on above: Result Comment: MPV is a calculated measurement using platelet volume ratio. Performed By: #### A DDON #### [facility] [address] [place] [address] Platelets (Bld) [#/Vol] 170 10*3/uL Normal 140-440 [facility] Comment on above: Performed By: #### A DDON #### [facility] [address] [place] [address] RBC (Bld) [#/Vol] 4.65 10*6/uL Normal 4.40-5.90 [facility] Comment on above: Performed By: #### A DDON #### [facility] [address] [place] [address] WBC (Bld) [#/Vol] 4.7 10*3/uL Normal 3.6-10.7 [facility] Comment on above: Performed By: #### A DDON #### [facility] [address] [place] [address] SARS-CoV-2 Antigenon 022 SARS-CoV-2 Antigen Negative Normal Negative [facility] Comment on above: Result Comment: A negative result does not rule out the possibility of SARS-CoV-2 infection. NAAT-based methods should be considered for symptomatic patients presenting greater than seven days after onset of symptoms. Method: Lateral flow immunoassay. Fact sheets for healthcare providers and patients can be found at the following sites: https://www.fda.gov/media/796694/download https://www.fda.gov/media/144136/download Performed By: #### A DDON #### [facility] [address] [place] [place] [address] CBC with Auto Differentialon 09-29-2021 Absolute Baso [...] - 10.7 10*3/uL [facility] Test Performed by [facility], [address] [place], [place] [address] [facility] Comp Metabolic Panelon 09-29 Anion gap [Moles/Vol] 5 mmol/L Normal 3-13 [facility] Comment on above: Performed By: #### H GHCT #### [facility] [address] [place] [address] Chloride [Moles/Vol] 96 mmol/L Low 98-107 [facility] Comment on above: Performed By: #### H GHCT #### [facility] [address] [place] [address] ALP [Catalytic activity/Vol] 95 U/L Normal 38-126 [facility] Comment on above: Performed By: #### H GHCT #### [facility] [address] [place] [address] ALT [Catalytic activity/Vol] 140 U/L High 0-49 [facility] Comment on above: Result Comment: The ALT test is performed by an updated assay method. Please note that the reference intervals have been changed and are now sex specific. Performed By: #### H GHCT #### [facility] [address] [place] [address] AST [Catalytic activity/Vol] 133 U/L High 15-46 [facility] Comment on above: Performed By: #### H GHCT #### [facility] [address] [place] [address] Bilirubin [Mass/Vol] 0.9 mg/dL Normal 0.2-1.3 [facility] Comment on above: Performed By: #### H GHCT #### [facility] [address] [place] [address] Calcium [Mass/Vol] 8.5 mg/dL Normal 8.4-10.4 [facility] Comment on above: Performed By: #### H GHCT #### [facility] [address] [place] [address] Glucose [Mass/Vol] 99 mg/dL Normal 70-100 [facility] Comment on above: Performed By: #### H GHCT #### [facility] [address] [place] [address] Protein [Mass/Vol] 6.8 g/dL Normal 6.3-8.2 [facility] Comment on above: Performed By: #### H GHCT #### [facility] [address] [place] [address] Urea nitrogen [Mass/Vol] mg/dL Low 7-17 [facility] Comment on above: Performed By: #### H GHCT #### [facility] [address] [place] [address] CO2 [Moles/Vol] 34 mmol/L High 22-30 [facility] Comment on above: Performed By: #### H GHCT #### [facility] [address] [place] [address] Creatinine [Mass/Vol] 0.61 mg/dL Normal 0.52-1.25 [facility] Comment on above: Performed By: #### H GHCT #### [facility] [address] [place] [address] eGFR OTHER > 90.0 Normal >60 [facility] Comment on above: Result Comment: [...] secretion. Performed By: #### H GHCT #### [facility] [address] [place] [address] GFR/1.73 sq M.predicted among blacks MDRD (S/P/Bld) [Vol rate/Area] mL/min/{1.73_m2} Normal >60 [facility] Comment on above: Performed By: #### H GHCT #### [facility] [address] [place] [address] Potassium [Moles/Vol] 4.0 mmol/L Normal 3.5-5.1 [facility] Comment on above: Performed By: #### H GHCT #### [facility] [address] [place] [address] Sodium [Moles/Vol] 133 mmol/L Low 135-145 [facility] Comment on above: Performed By: #### H GHCT #### [facility] [address] [place] [address] Albumin [Mass/Vol] 4.1 g/dL Normal 3.5-5.0 [facility] Comment on above: Performed By: #### H GHCT #### [facility] [address] [place] [address] Comprehensive Metabolic Pane arnulfo 09-29-2021 Albumin [Mass/Vol] [...] - 1.25 mg/dL [facility] EGFR IF NonAfrican Brazilian >90.0 >60 mL/min [facility] Comment on above: KDIGO guidelines pro [...] [Mass/Vol] <2 Low 7 - 17 mg/dL [facility] Test Performed by [facility], [address] [place], [place] [id number] [place] [address] LAB [facility] Hemogram w/ Autodiffon 09-29 Abs Baso Cnt 0.0 10*3/uL Normal 0.0-0.2 [facility] Comment on above: Performed By: #### A DDON #### [facility] [address] [place] [address] Abs Neutrophile Cnt 2.1 10*3/uL Normal 1.8-7.0 [facility] Comment on above: Performed By: #### A DDON #### [facility] [address] [place] [address] Basophils/100 WBC (Bld) 1.0 % Normal 0.0-2.0 [facility] Comment on above: Performed By: #### A DDON #### [facility] [address] [place] [address] Eosinophils (Bld) [#/Vol] 0.1 10*3/uL Normal 0.0-0.5 [facility] Comment on above: Performed By: #### A DDON #### [facility] [address] [place] [place] [address] Eosinophils/100 WBC (Bld) 2.6 % Normal 1.0-6.0 [facility] Comment on above: Performed By: #### A DDON #### [facility] [address] [place] [address] Erythrocyte distribution width (RBC) [Ratio] 14.3 % Normal 11.5-14.5 [facility] Comment on above: Performed By: #### A DDON #### [facility] [address] [place] [address] Granulocytes/100 WBC (Bld) 52.6 % Normal 40.0-80.0 [facility] Comment on above: Performed By: #### A DDON #### [facility] [address] [place] [address] Hematocrit (Bld) [Volume fraction] 42.3 % Normal 40.0-52.0 [facility] Comment on above: Performed By: #### A DDON #### [facility] [address] [place] [address] Hemoglobin (Bld) [Mass/Vol] 14.5 g/dL Normal 13.0-18.0 [facility] Comment on above: Performed By: #### A DDON #### [facility] [address] [place] [address] Lymphocytes (Bld) [#/Vol] 1.3 10*3/uL Normal 1.0-4.3 [facility] Comment on above: Performed By: #### A DDON #### [facility] [address] [place] [address] Lymphocytes/100 WBC (Bld) 32.7 % Normal 20.0-40.0 [facility] Comment on above: Performed By: #### A DDON #### [facility] [address] [place] [address] MCH (RBC) [Entitic mass] 33.8 pg Normal 26.0-34.0 [facility] Comment on above: Performed By: #### A DDON #### [facility] [address] [place] [address] MCHC 34.2 % Normal 32.0-36.0 [facility] Comment on above: Performed By: #### A DDON #### [facility] [address] [place] [address] MCV (RBC) [Entitic vol] 98.8 fL High 80.0-98.0 [facility] Comment on above: Performed By: #### A DDON #### [facility] [address] [place] [address] Monocytes (Bld) [#/Vol] 0.4 10*3/uL Normal 0.0-0.8 [facility] Comment on above: Performed By: #### A DDON #### [facility] [address] [place] [address] Monocytes/100 WBC (Bld) 11.1 % High 2.0-10.0 [facility] Comment on above: Performed By: #### A DDON #### [facility] [address] [place] [address] Platelet mean volume (Bld) [Entitic vol] 7.6 fL Normal 7.4-12.4 [facility] Comment on above: Result Comment: MPV is a calculated measurement using platelet volume ratio. Performed By: #### A DDON #### [facility] [address] [place] [address] Platelets (Bld) [#/Vol] 139 10*3/uL Low 140-440 [facility] Comment on above: Performed By: #### A DDON #### [facility] [address] [place] [address] RBC (Bld) [#/Vol] 4.28 10*6/uL Low 4.40-5.90 [facility] Comment on above: Performed By: #### A DDON #### [facility] [address] [place] [address] WBC (Bld) [#/Vol] 4.0 10*3/uL Normal 3.6-10.7 [facility] Comment on above: Performed By: #### A DDON #### [facility] [address] [place] [address] Hepatic Functionon 2 Bilirubin.indirect [Mass/Vol] 0.0 mg/dL Normal 0.0-0.3 [facility] Comment on above: Performed By: #### A DDON #### [facility] [address] [place] [address] Hepatic Function Panelon Bilirubin.indirect [Mass/Vol] 0.0 mg/dL 0.0 - 0.3 mg/dL [facility] Test Performed by [facility], [address] [facility] Phenobarbitalon 09-29-2021 PHENobarbital [Mass/Vol] 15.1 ug/mL Normal 10.0-40.0 [facility] Comment on above: Performed By: #### H GHCT #### [facility] [address] [place] [address] Phenobarbital Levelon 2021 PHENobarbital [Mass/Vol] 15.1 ug/mL 10.0 - 40.0 ug/mL [facility] Test Performed by [facility], [address] [place] [id number] [place] [address] LAB [facility] APTTon 09-27-2021 aPTT Coag (Bld) [Time] 26.3 s Normal 20.0-30.5 [facility] Comment on above: Result Comment: NOTE : The therapeutic time for Heparin anticoagulation, based on Xa activity inhibition, is an APTT of 46-80 seconds. Performed By: #### C OVAG #### [facility] [address] [place] [address] aPTT Coag (Bld) [Time] 26.3 s 20.0 - 30.5 s [facility] Comment on above: NOTE: The therapeuti c time for Heparin anticoagulation, based on Xa activity inhibition, is an APTT of 46-80 seconds. Test Performed by [facility], [address] LAB [facility] Ferritinon 09-27-2021 Ferritin [Mass/Vol] 669 ng/mL High 18-464 [facility] Comment on above: Performed By: #### A DDON #### [facility] [address] [place] [address] Ferritin [Mass/Vol] 669 ng/mL High 18 - 464 ng/mL [facility] Interpretation and review of laboratory results Abnormal [facility] Test Performed by [facility], [address] [place] [address] [facility] HM ENDOSCOPY REPORTon 2021 Ordered by an unspec ified provider. [facility] Hemoglobin AND Hematocriton 09-27-2021 Hematocrit (Bld) [Volume fraction] 43.0 % Normal 40.0-52.0 [facility] Comment on above: Performed By: #### H GHCT #### [facility] [address] [place] [address] Hemoglobin (Bld) [Mass/Vol] 14.7 g/dL Normal 13.0-18.0 [facility] Comment on above: Performed By: #### H GHCT #### [facility] [address] [place] [address] Hemoglobin and Hematocriton 09-27-2021 Hematocrit (Bld) [Volume fraction] 43.0 % 40.0 - 52.0 % [facility] Hemoglobin (Bld) [Mass/Vol] 14.7 g/dL 13.0 - 18.0 g/dL [facility] Test Performed by [facility], [address] [place] [address] [facility] Iron AND TIBCon 09-27-2021 Saturation 50 % Normal 15-50 [facility] Comment on above: Performed By: #### C OVAG #### [facility] [address] [place] [address] Total Iron Binding Cap. 191 ug/dL Low 261-497 [facility] Comment on above: Performed By: #### C OVAG #### [facility] [address] [place] [address] Iron, Total 95 ug/dL Normal 49-181 [facility] Comment on above: Performed By: #### C OVAG #### [facility] [address] [place] [address] Iron and TIBCon 09-27-2021 Interpretation and review of laboratory results Abnormal [facility] Iron [Mass/Vol] 95 ug/dL 49 - 181 ug/dL [facility] Sat 50 % 15 - 50 % [facility] TIBC 191 ug/dL Low 261 - 497 ug/dL [facility] Test Performed by [facility], [address] [place], [address] [facility] Lactic Acidon 09-27-2021 Lactate [Moles/Vol] 1.4 mmol/L Normal 0.7-2.0 [facility] Comment on above: Performed By: #### A DDON #### [facility] [address] [place] [address] Lactate [Moles/Vol] 1.4 mmol/L 0.7 - 2. 0 mmol/L [facility] Test Performed by [facility], [address] [place], [address] [facility] CBC with Auto Differentialon [...] [Mass/Vol] 16.8 g/dL 13.0 - 18.0 g/dL [facility] Interpretation and review of laboratory results Abnormal [...] Radiology ACCESSION EXAM DATE/TIME PROCEDURE ORDERING PROVIDER [id number] 09/26/2021 19:48 EDT CR Chest Portable [id number] DIPESH MCKEON CPT code 73201 Reason For Exam (CR Chest Portable) epigastric [...] Transcribed Date and Time: 09/26/2021 7:59 Normal [facility] Comp Metabolic Panelon 09-26 ALP [Catalytic activity/Vol] 120 U/L Normal 38-126 [facility] Comment on above: Performed By: #### H GHCT #### [facility] [address] [place] [address] ALT [Catalytic activity/Vol] 156 U/L High 0-49 [facility] Comment on above: Result Comment: The ALT test is performed by an updated assay method. Please note that the reference intervals have been changed and are now sex specific. Performed By: #### H GHCT #### [facility] [address] [place] [address] Anion gap [Moles/Vol] 15 mmol/L High 3-13 [facility] Comment on above: Performed By: #### H GHCT #### [facility] [address] [place] [address] AST [Catalytic activity/Vol] 159 U/L High 15-46 [facility] Comment on above: Performed By: #### H GHCT #### [facility] [address] [place] [address] Bilirubin [Mass/Vol] 0.6 mg/dL Normal 0.2-1.3 [facility] Comment on above: Performed By: #### H GHCT #### [facility] [address] [place] [address] Calcium [Mass/Vol] 9.4 mg/dL Normal 8.4-10.4 [facility] Comment on above: Performed By: #### H GHCT #### [facility] [address] [place] [address] CO2 [Moles/Vol] 24 mmol/L Normal 22-30 [facility] Comment on above: Performed By: #### H GHCT #### [facility] [address] [place] [address] Glucose [Mass/Vol] 95 mg/dL Normal 70-100 [facility] Comment on above: Performed By: #### H GHCT #### [facility] [address] [place] [address] Protein [Mass/Vol] 7.5 g/dL Normal 6.3-8.2 [facility] Comment on above: Performed By: #### H GHCT #### [facility] [address] [place] [address] Urea nitrogen [Mass/Vol] 5 mg/dL Low 7-17 [facility] Comment on above: Performed By: #### H GHCT #### [facility] [address] [place] [address] Creatinine [Mass/Vol] 0.64 mg/dL Normal 0.52-1.25 [facility] Comment on above: Performed By: #### H GHCT #### [facility] [address] [place] [address] eGFR OTHER > 90.0 Normal >60 [facility] Comment on above: Result Comment: [...] secretion. Performed By: #### H GHCT #### [facility] [address] [place] [address] GFR/1.73 sq M.predicted among blacks MDRD (S/P/Bld) [Vol rate/Area] mL/min/{1.73_m2} Normal >60 [facility] Comment on above: Performed By: #### H GHCT #### [facility] [address] [place] [address] Potassium [Moles/Vol] 4.0 mmol/L Normal 3.5-5.1 [facility] Comment on above: Performed By: #### H GHCT #### [facility] [address] [place] [address] Albumin [Mass/Vol] 4.6 g/dL Normal 3.5-5.0 [facility] Comment on above: Performed By: #### H GHCT #### [facility] [address] [place] [address] Chloride [Moles/Vol] 94 mmol/L Low 98-107 [facility] Comment on above: Performed By: #### H GHCT #### [facility] [address] [place] [address] Sodium [Moles/Vol] 133 mmol/L Low 135-145 [facility] Comment on above: Performed By: #### H GHCT #### [facility] [address] [place] [address] Comprehensive Metabolic Pane [facility] 09-26-2021 Albumin [Mass/Vol] 4.6 g/dL 3.5 - [...] - 1.25 mg/dL [facility] EGFR IF NonAfrican Brazilian >90.0 >60 mL/min [facility] Comment on above: [...] fraction] 7.5 g/dL 6.3 - 8.2 g/dL [facility] GFR/1.73 sq M.predicted among blacks MDRD (S/P/Bld) [Vol rate/Area] mL/min/{1.73_m2} >60 mL/min [facility] Glucose [Mass/Vol] 95 mg/dL 70 - 100 mg/dL [facility] Interpretation and review of laboratory results Abnormal [facility] Potassium [Moles/Vol] 4.0 mmol/L 3.5 - 5.1 mmol/L [facility] Sodium [Moles/Vol] 133 mmol/L Low 135 - 145 mmol/L [facility] Urea nitrogen (BldV) [Mass/Vol] 5 mg/dL Low 7 - 17 mg/dL [facility] Ethanolon 09-26-2021 Ethanol Lvl 0.346 g/dL Critically high 0.000 - 0.010 g/dL [facility] Comment on above: NOTE: This result is for medical treatment only. Analysis performed using non-forensic procedures. Interpretation and review of laboratory results Abnormal [facility] Ethanol Serum/Plasmaon 09-26 Ethanol-Serum/Plasma 0.346 g/dL Critically high 0.00 0-0.01 0 [facility] Comment on above: Result Comment: NOTE : This result is for medical treatment only. Analysis performed using non-forensic procedures. Performed By: #### H GHCT #### [facility] [address] [place] [address] Hemogram w/ Autodiffon 09-26 Abs Baso Cnt 0.1 10*3/uL Normal 0.0-0.2 [facility] Comment on above: Performed By: #### H GHCT #### [facility] [address] [place] [address] Abs Neutrophile Cnt 2.0 10*3/uL Normal 1.8-7.0 [facility] Comment on above: Performed By: #### H GHCT #### [facility] [address] [place] [address] Basophils/100 WBC (Bld) 1.7 % Normal 0.0-2.0 [facility] Comment on above: Performed By: #### H GHCT #### [facility] [address] [place] [address] Eosinophils (Bld) [#/Vol] 0.0 10*3/uL Normal 0.0-0.5 [facility] Comment on above: Performed By: #### H GHCT #### [facility] [address] [place] [address] Eosinophils/100 WBC (Bld) 0.7 % Low 1.0-6.0 [facility] Comment on above: Performed By: #### H GHCT #### [facility] [address] [place] [address] Erythrocyte distribution width (RBC) [Ratio] 13.3 % Normal 11.5-14.5 [facility] Comment on above: Performed By: #### H GHCT #### [facility] [address] [place] [address] Granulocytes/100 WBC (Bld) 46.7 % Normal 40.0-80.0 [facility] Comment on above: Performed By: #### H GHCT #### [facility] [facility] [address] [place] [address] Hematocrit (Bld) [Volume fraction] 45.9 % Normal 40.0-52.0 [facility] Comment on above: Performed By: #### H GHCT #### [facility] [address] [place] [address] Hemoglobin (Bld) [Mass/Vol] 16.8 g/dL Normal 13.0-18.0 [facility] Comment on above: Performed By: #### H GHCT #### [facility] [address] [place] [address] Lymphocytes (Bld) [#/Vol] 1.5 10*3/uL Normal 1.0-4.3 [facility] Comment on above: Performed By: #### H GHCT #### [facility] [address] [place] [address] Lymphocytes/100 WBC (Bld) 34.8 % Normal 20.0-40.0 [facility] Comment on above: Performed By: #### H GHCT #### [facility] [address] [place] [address] MCH (RBC) [Entitic mass] 33.9 pg Normal 26.0-34.0 [facility] Comment on above: Performed By: #### H GHCT #### [facility] [address] [place] [address] MCHC 36.6 % High 32.0-36.0 [facility] Comment on above: Performed By: #### H GHCT #### [facility] [address] [place] [address] MCV (RBC) [Entitic vol] 92.7 fL Normal 80.0-98.0 [facility] Comment on above: Performed By: #### H GHCT #### [facility] [address] [place] [address] Monocytes (Bld) [#/Vol] 0.7 10*3/uL Normal 0.0-0.8 [facility] Comment on above: Performed By: #### H GHCT #### [facility] [address] [place] [address] Monocytes/100 WBC (Bld) 16.1 % High 2.0-10.0 [facility] Comment on above: Performed By: #### H GHCT #### [facility] [address] [place] [address] Platelet mean volume (Bld) [Entitic vol] 8.8 fL Normal 7.4-12.4 [facility] Comment on above: Result Comment: MPV is a calculated measurement using platelet volume ratio. Performed By: #### H GHCT #### [facility] [address] [place] [address] Platelets (Bld) [#/Vol] 189 10*3/uL Normal 140-440 [facility] Comment on above: Performed By: #### H GHCT #### [facility] [address] [place] [address] RBC (Bld) [#/Vol] 4.95 10*6/uL Normal 4.40-5.90 [facility] Comment on above: Performed By: #### H GHCT #### [facility] [address] [place] [address] WBC (Bld) [#/Vol] 4.2 10*3/uL Normal 3.6-10.7 [facility] Comment on above: Performed By: #### H GHCT #### [facility] [address] [place] [address] Lactic Acidon 09-26-2021 Lactate [Moles/Vol] 3.2 mmol/L Critically high 0.7-2.0 [facility] Comment on above: Performed By: #### H GHCT #### [facility] [address] [place] [address] Interpretation and review of laboratory results Abnormal [facility] Lactate [Moles/Vol] 3.2 mmol/L Critically high 0.7 - 2.0 mmol/L [facility] Lipaseon 09-26-2021 Lipase [Catalytic activity/Vol] 135 U/L Normal 23-300 [facility] Comment on above: Performed By: #### H GHCT #### [facility] [address] [place] [address] Lipase [Catalytic activity/Vol] 135 U/L 23 - 300 U/L [facility] Magnesiumon 09-26-2021 Magnesium [Mass/Vol] 1.8 mg/dL Normal 1.6-2.3 [facility] Comment on above: Performed By: #### H GHCT #### [facility] [address] [place] [address] Magnesium [Mass/Vol] 1.8 mg/dL 1.6 - 2 .3 mg/dL [facility] No Panel Informationon 09-26 Test Performed by [facility], [facility] Jarred Hernández , [place], [place] [id number] [place] [address] LAB [facility] Prothrombin Timeon 2 INR 1.0 Normal 0.9-1.1 [facility] Comment on above: Result Comment: [...] Infarction Performed By: #### H GHCT #### [facility] [address] [place] [address] PT Coag (PPP) [Time] 10.3 s Normal 9.0-12.0 [facility] Comment on above: Result Comment: . Performed By: #### H GHCT #### [facility] [address] [place] [address] Protime-INRon 09-26-2021 INR Coag (Bld) [Relative time] 1.0 {INR} [facility] Comment on above: Recommended Anticoag ulant [...] 10.3 s 9.0 - 1 2.0 s [facility] Comment on above: . TS GELon 09-26-2021 TS GEL ABO Group: A Rh, Gel: POS Antibody Screen Gel: NEG Normal [facility] Comment on above: Performed By: #### C UA2 #### [facility] [address] [place] [address] TYPE AND SCREENon 09-26-2021 ABO Grouping A [facility] Rh Type Positive [facility] Troponin Ion 09-26-2021 Troponin I.cardiac [Mass/Vol] ng/mL Normal 0.000-0.03 4 [facility] Comment on above: Result Comment: . Performed By: #### H GHCT #### [facility] [address] [place] [address] Troponin x1on 09-26-2021 Troponin I.cardiac [Mass/Vol] ng/mL 0.000 - 0.034 ng/mL [facility] Comment on above: . XR CHEST PORTABLEon 09-27-19 Patient Name: [id number]iology ACCESSION EXAM DATE/TIME PROCEDURE ORDERING PROVIDER [id number] 09/26/2021 19:48 EDT CR Chest Portable [id number] -NESHEIM, DIPESH CPT code 64513 Reason For Exam (CR Chest Portable) epigastric [...] WILLIAM Transcribed Date and Time: 09/26/2021 7:59 [facility] RAD Ubaldo Gay MD - 09/26/2021 Patient Name: MARIA DE JESUS HOGAN Diagnostic Radiology ACCESSION EXAM DATE/TIME PROCEDURE ORDERING PROVIDER [id number] 09/26/2021 19:48 EDT CR Chest Portable [id number] -NESHEIM, DIPESH CPT code 44410 Reason For Exam (CR Chest Portable) epigastric [...] Surgical Pathology Report SEE BELOW [facility] 1 [id number] [facility] PATHOLOGY AND LABORATORY MEDICINE [address] [place] [address] [place] [address] FINAL SURGICAL PATHOLOGY REPORT NAME: MARIA DE JESUS HOGAN : 1965 55 [address] M [facility] NO.: [id number] LOCATION: [address] [place] [address] PROCEDURE 06/08/2021 DATE: SURGEON: JAZMÍN WEI MD [...] characteristics determined by the clinical laboratories of [facility]. They have not been cleared [...] negativity on decalcified specimens. Professional Performing Location: [address] [address]. DEPARTMENT OF PATHOLOGY AND LABORATORY MEDICINE [place], [place] [address] [facility] LAB [facility] Basic Metabolic Panelon 03-1 0 Calcium [Mass/Vol] 8.1 mg/dL Low 8.4-10.4 [facility] Comment on above: Performed By: #### H AGATHA ADEN3 #### [address] [address] Glucose [Mass/Vol] 151 mg/dL High 70-100 [facility] Comment on above: Performed By: #### H AGATHA ADEN3 #### [address] [place] Urea nitrogen [Mass/Vol] 6 mg/dL Low 7-17 [facility] Comment on above: Performed By: #### H AGATHA ADEN3 #### [facility] [address] [place], [place] Anion gap [Moles/Vol] 5 mmol/L Normal 3-13 [facility] Comment on above: Performed By: #### H KEIKO BMP3 #### [facility] [address] [place], [place] CO2 [Moles/Vol] 30 mmol/L Normal 22-30 [facility] Comment on above: Performed By: #### H AGATHA ADEN3 #### [place] [address] [address] [place], [place] Creatinine [Mass/Vol] 0.62 mg/dL Normal 0.52-1.25 [facility] Comment on above: Performed By: #### H AGATHA ADEN3 #### [place] [address] [address] [place], [place] eGFR OTHER > 90.0 Normal >60 [facility] Comment on above: Result Comment: [...] Performed By: #### H KEIKO BMP3 #### [facility] [address], [place] GFR/1.73 sq M.predicted among blacks MDRD (S/P/Bld) [Vol rate/Area] mL/min/{1.73_m2} Normal >60 [facility] Comment on above: Performed By: #### H AGATHA ADEN3 #### [facility] [address] [place], [place] Potassium [Moles/Vol] 4.0 mmol/L Normal 3.5-5.1 [facility] Comment on above: Performed By: #### H AGATHA ADEN3 #### [facility] [address] [place], [place] Chloride [Moles/Vol] 95 mmol/L Low 98-107 [facility] Comment on above: Performed By: #### H AGATHA ADEN3 #### [facility] [address] [place], [place] Sodium [Moles/Vol] 130 mmol/L Low 135-145 [facility] Comment on above: Performed By: #### H AGATHA ADEN3 #### [facility] [address] [place], [place] Anion gap [Moles/Vol] 5 mmol/L 3 - 13 mmol/L [facility] Calcium [Mass/Vol] 8.1 mg/dL Low 8.4 - 10. 4 mg/dL [facility] Chloride [Moles/Vol] 95 mmol/L Low 98 - 10 7 mmol/L [facility] CO2 [Moles/Vol] 30 mmol/L 22 - 30 mmol/L [facility] Creatinine [Mass/Vol] 0.62 mg/dL 0.52 - 1.25 mg/dL [facility] EGFR IF NonAfrican Brazilian >90.0 >60 mL/min [facility] Comment on above: KDIGO guidelines pro [...] - 17 mg/dL [facility] Test Performed by [id number] [place] [address] LAB [facility] CBC with Auto Differentialon 06-08-2021 [...] - 10.7 10*3/uL [facility] Test Performed by [facility], [address] [place] [id number] [place] [address] LAB [facility] HM ENDOSCOPY REPORTon 2021 Ordered by an unspec ified provider. [facility] Hemogram w/ Autodiffon 06-08 Abs Baso Cnt 0.1 10*3/uL Normal 0.0-0.2 [facility] Comment on above: Performed By: #### H AGATHA ADEN3 #### [facility] [address] [place] [address] Abs Neutrophile Cnt 2.4 10*3/uL Normal 1.8-7.0 [facility] Comment on above: Performed By: #### H AGATHA ADEN3 #### [facility] [address] [place] [address] Basophils/100 WBC (Bld) 1.5 % Normal 0.0-2.0 [facility] Comment on above: Performed By: #### H EMDF, BMP3 #### [facility] [address] [place] [address] Eosinophils (Bld) [#/Vol] 0.1 10*3/uL Normal 0.0-0.5 [facility] Comment on above: Performed By: #### H EMDF, BMP3 #### [facility] [address] [place] [address] Eosinophils/100 WBC (Bld) 3.0 % Normal 1.0-6.0 [facility] Comment on above: Performed By: #### H EMDF, BMP3 #### [facility] [address] [place] [address] Erythrocyte distribution width (RBC) [Ratio] 13.8 % Normal 11.5-14.5 [facility] Comment on above: Performed By: #### H EMDF, BMP3 #### [place] [address] [place] [address] Granulocytes/100 WBC (Bld) 60.8 % Normal 40.0-80.0 [facility] Comment on above: Performed By: #### H EMDF, BMP3 #### [facility] [address] [place] [address] Hematocrit (Bld) [Volume fraction] 40.0 % Normal 40.0-52.0 [facility] Comment on above: Performed By: #### H EMDF, BMP3 #### [facility] [address] [place] [address] Hemoglobin (Bld) [Mass/Vol] 13.3 g/dL Normal 13.0-18.0 [facility] Comment on above: Performed By: #### H EMDF, BMP3 #### [facility] [address] [place] [address] Lymphocytes (Bld) [#/Vol] 1.0 10*3/uL Normal 1.0-4.3 [facility] Comment on above: Performed By: #### H EMDF, BMP3 #### [facility] [address] [place] [address] Lymphocytes/100 WBC (Bld) 24.6 % Normal 20.0-40.0 [facility] Comment on above: Performed By: #### H EMDF, BMP3 #### [facility] [address] [place], [place] MCH (RBC) [Entitic mass] 32.9 pg Normal 26.0-34.0 [facility] Comment on above: Performed By: #### H EMDF, BMP3 #### [facility] [address] [place], [place] MCHC 33.3 % Normal 32.0-36.0 [facility] Comment on above: Performed By: #### H EMDF, BMP3 #### [facility] [address] [place], [place] MCV (RBC) [Entitic vol] 98.7 fL High 80.0-98.0 [facility] Comment on above: Performed By: #### H EMDF, BMP3 #### [place] [address] [address] [place], [place] Monocytes (Bld) [#/Vol] 0.4 10*3/uL Normal 0.0-0.8 [facility] Comment on above: Performed By: #### H EMDF, BMP3 #### [place] [address] [address] [place], [place] Monocytes/100 WBC (Bld) 10.1 % High 2.0-10.0 [facility] Comment on above: Performed By: #### H EMDF, BMP3 #### [facility] [address] [place], [place] Platelet mean volume (Bld) [Entitic vol] 7.8 fL Normal 7.4-10.4 [facility] Comment on above: Performed By: #### H EMDF, BMP3 #### [place] [address] [address] [place], [place] Platelets (Bld) [#/Vol] 163 10*3/uL Normal 140-440 [facility] Comment on above: Performed By: #### H EMDF, BMP3 #### [place] [address] [address] [place], [place] RBC (Bld) [#/Vol] 4.05 10*6/uL Low 4.40-5.90 [facility] Comment on above: Performed By: #### H AGATHA ADEN3 #### [address] [address] WBC (Bld) [#/Vol] 4.0 10*3/uL Normal 3.6-10.7 [facility] Comment on above: Performed By: #### H AGATHA ADEN3 #### [address] [address] Surgical Pathologyon 022 Surgical Pathology [id number] [facility] PATHOLOGY AND LABORATORY MEDICINE [address] [place] [address] FINAL SURGICAL PATHOLOGY REPORT NAME: MARIA DE JESUS HOGAN : 1965 55 [address] [place] [facility] NO.: [id number] LOCATION: [address] [place] [address] 01 PROCEDURE 06/08/2021 DATE: SURGEON: JAZMÍN WEI [...] characteristics determined by the clinical laboratories of [facility]. They have not been cleared [...] negativity on decalcified specimens. Professional Performing Location: [address] [address]. DEPARTMENT OF PATHOLOGY AND LABORATORY MEDICINE [place], [place] [address] [email or web address] Normal [facility] CBC with Auto Differentialon 06-07-2021 [...] (Stl) 15.3 g/dL 13.0 - 18.0 g/dL [facility] Interpretation and review of laboratory results [...] [#/Vol] 4.62 10*6/uL 4.40 - 5.90 10*6/uL [facility] WBC (Bld) [#/Vol] 3.9 10*3/uL 3.6 - 10.7 10*3/uL [facility] Test Performed by [facility], [address] [place] [address] [facility] LAB [facility] Comp Panel with Mg Reflexon 06-07-2021 ALP [Catalytic activity/Vol] 92 U/L Normal 38-126 [facility] Comment on above: Performed By: #### H EMDF MG3, CMP3M #### [address] ALT [Catalytic activity/Vol] 144 U/L High 0-49 [facility] Comment on above: Result Comment: The ALT test is performed by an updated assay method. Please note that the reference intervals have been changed and are now sex specific. Performed By: #### H EMDF MG3, CMP3M #### [address] Anion gap [Moles/Vol] 10 mmol/L Normal 3-13 [facility] Comment on above: Performed By: #### H EMDF MG3, CMP3M #### [address] AST [Catalytic activity/Vol] 104 U/L High 15-46 [facility] Comment on above: Performed By: #### H EMDF, MG3, CMP3M #### [place] [address] [place], [place] Bilirubin [Mass/Vol] 0.6 mg/dL Normal 0.2-1.3 [facility] Comment on above: Performed By: #### H EMDF, MG3, CMP3M #### [address] CO2 [Moles/Vol] 26 mmol/L Normal 22-30 [facility] Comment on above: Performed By: #### H EMDF, MG3, CMP3M #### [address] [place], [place] Glucose [Mass/Vol] 133 mg/dL High 70-100 [facility] Comment on above: Performed By: #### H MARK ADEN CMP3M #### [facility] [address], [place] Protein [Mass/Vol] 7.0 g/dL Normal 6.3-8.2 [facility] Comment on above: Performed By: #### H KEIKO MG3, CMP3M #### [address] [address] [place], [place] Urea nitrogen [Mass/Vol] 6 mg/dL Low 7-17 [facility] Comment on above: Performed By: #### H MG KEIKO3 CMP3M #### [address] Creatinine [Mass/Vol] 0.72 mg/dL Normal 0.52-1.25 [facility] Comment on above: Performed By: #### H MG KEIKO3 CMP3M #### [place] [address] [place], [place] eGFR OTHER > 90.0 Normal >60 [facility] Comment on above: Result Comment: [...] By: #### H KEIKO MG3, CMP3M #### [place] [address] [place], [place] GFR/1.73 sq M.predicted among blacks MDRD (S/P/Bld) [Vol rate/Area] mL/min/{1.73_m2} Normal >60 [facility] Comment on above: Performed By: #### H EMDF, MG3, CMP3M #### [facility] [address] [place], [place] Albumin [Mass/Vol] 4.2 g/dL Normal 3.5-5.0 [facility] Comment on above: Performed By: #### H EMDF, MG3, CMP3M #### [facility] [address] [place], [place] Chloride [Moles/Vol] 94 mmol/L Low 98-107 [facility] Comment on above: Performed By: #### H EMDF, MG3, CMP3M #### [place] [address] [address] [place], [place] Potassium [Moles/Vol] 3.5 mmol/L Normal 3.5-5.1 [facility] Comment on above: Performed By: #### H EMDF, MG3, CMP3M #### [facility] [address] [place], [place] Sodium [Moles/Vol] 130 mmol/L Low 135-145 [facility] Comment on above: Performed By: #### H EMDF, MG3, CMP3M #### [place] [address] [address] [place], [place] Calcium [Mass/Vol] 8.5 mg/dL Normal 8.4-10.4 [facility] Comment on above: Performed By: #### H EMDF, MG3, CMP3M #### [facility] [address], [place] Comprehensive Metabolic Pane l w/ Reflex to MGon 06-07-2021 Albumin [Mass/Vol] 4.2 g/dL 3.5 - 5.0 g/dL [facility] ALP (Bld) [Catalytic activity/Vol] 92 U/L 38 - 126 U/L [facility] ALT [Catalytic activity/Vol] 144 U/L High 0 [...] - 1.25 mg/dL [facility] EGFR IF NonAfrican Brazilian >90.0 >60 mL/min [facility] Comment on above: [...] - 17 mg/dL [facility] Test Performed by [facility], [address] [place] [id number] [place] [address] LAB [facility] Hemoglobin AND Hematocriton 06-07-2021 Hematocrit (Bld) [Volume fraction] 42.5 % Normal 40.0-52.0 [facility] Comment on above: Performed By: #### H GHCT #### [place] [address] [place], [place] Hemoglobin (Bld) [Mass/Vol] 14.4 g/dL Normal 13.0-18.0 [facility] Comment on above: Performed By: #### H GHCT #### [address] Hemoglobin and Hematocriton 06-07-2021 Hematocrit (Bld) [Volume fraction] 42.5 % 40.0 - 52.0 % [facility] Hemoglobin.gastrointest inal spec 1 Ql (Stl) 14.4 g/dL 13.0 - 18.0 g/dL [facility] Test Performed by [facility], [address] [place] [id number] [place] [address] LAB [facility] Hemogram w/ Autodiffon 06-07 Abs Baso Cnt 0.1 10*3/uL Normal 0.0-0.2 [facility] Comment on above: Performed By: #### H EMDF, MG3, CMP3M #### [address] Abs Neutrophile Cnt 2.1 10*3/uL Normal 1.8-7.0 [facility] Comment on above: Performed By: #### H EMDF, MG3, CMP3M #### [address] Basophils/100 WBC (Bld) 1.3 % Normal 0.0-2.0 [facility] Comment on above: Performed By: #### H EMDF, MG3, CMP3M #### [place] [address] [place], [place] Eosinophils (Bld) [#/Vol] 0.1 10*3/uL Normal 0.0-0.5 [facility] Comment on above: Performed By: #### H EMDF, MG3, CMP3M #### [place] [address] [place], [place] Eosinophils/100 WBC (Bld) 1.9 % Normal 1.0-6.0 [facility] Comment on above: Performed By: #### H EMDF, MG3, CMP3M #### [place] [address] [place], [place] Erythrocyte distribution width (RBC) [Ratio] 14.1 % Normal 11.5-14.5 [facility] Comment on above: Performed By: #### H EMDF, MG3, CMP3M #### [place] [address] [place], [place] Granulocytes/100 WBC (Bld) 53.3 % Normal 40.0-80.0 [facility] Comment on above: Performed By: #### H EMDF, MG3, CMP3M #### [place] [address] [place], [place] Hematocrit (Bld) [Volume fraction] 45.3 % Normal 40.0-52.0 [facility] Comment on above: Performed By: #### H EMDF, MG3, CMP3M #### [place] [address] [place], [place] Hemoglobin (Bld) [Mass/Vol] 15.3 g/dL Normal 13.0-18.0 [facility] Comment on above: Performed By: #### H EMDF, MG3, CMP3M #### [address] Lymphocytes (Bld) [#/Vol] 1.2 10*3/uL Normal 1.0-4.3 [facility] Comment on above: Performed By: #### H EMDF, MG3, CMP3M #### [address] Lymphocytes/100 WBC (Bld) 30.2 % Normal 20.0-40.0 [facility] Comment on above: Performed By: #### H EMDBasim MG3, CMP3M #### [place] [address] [place], [place] MCH (RBC) [Entitic mass] 33.1 pg Normal 26.0-34.0 [facility] Comment on above: Performed By: #### H EMDBasim MG3, CMP3M #### [place] [address] [place], [place] MCHC 33.7 % Normal 32.0-36.0 [facility] Comment on above: Performed By: #### H EMDBasim MG3, CMP3M #### [address] MCV (RBC) [Entitic vol] 98.1 fL High 80.0-98.0 [facility] Comment on above: Performed By: #### H EMDF MG3, CMP3M #### [address] Monocytes (Bld) [#/Vol] 0.5 10*3/uL Normal 0.0-0.8 [facility] Comment on above: Performed By: #### H EMDBasim, MG3, CMP3M #### [address] Monocytes/100 WBC (Bld) 13.3 % High 2.0-10.0 [facility] Comment on above: Performed By: #### H EMDF, MG3, CMP3M #### [place] [address] [place], [place] Platelet mean volume (Bld) [Entitic vol] 6.9 fL Low 7.4-10.4 [facility] Comment on above: Performed By: #### H EMDF, MG3, CMP3M #### [address] Platelets (Bld) [#/Vol] 195 10*3/uL Normal 140-440 [facility] Comment on above: Performed By: #### H EMDF MG3, CMP3M #### [place] [address] [place], [place] RBC (Bld) [#/Vol] 4.62 10*6/uL Normal 4.40-5.90 [facility] Comment on above: Performed By: #### H EMDF, MG3, CMP3M #### [address] [address] [place], [place] WBC (Bld) [#/Vol] 3.9 10*3/uL Normal 3.6-10.7 [facility] Comment on above: Performed By: #### H EMDF, MG3, CMP3M #### [address] Lactic Acidon 06-07-2021 Lactate [Moles/Vol] 0.8 mmol/L Normal 0.7-2.0 [facility] Comment on above: Performed By: #### L ACT3 #### [address] Test Performed by [id number] [place] [address] LAB Lactate [Moles/Vol] 2.6 mmol/L Critically high 0.7-2.0 [facility] Comment on above: Performed By: #### L ACT3 #### [address] Interpretation and review of laboratory results Abnormal [facility] Lactate [Moles/Vol] 2.6 mmol/L Critically high 0.7 - 2.0 mmol/L [facility] Test Performed by [address] [address] [facility] LAB [facility] Lactic AcidOrdered By: Valeriano Saavedra on 06-07-2021 Lactate [Moles/Vol] 0.8 mmol/L 0.7 - 2. 0 mmol/L [facility] Magnesiumon 06-07-2021 Magnesium [Mass/Vol] 1.9 mg/dL Normal 1.6-2.3 [facility] Comment on above: Performed By: #### H EMDF, MG3, CMP3M ####[facility] [id number] [place] [address] Magnesium [Mass/Vol] 1.9 mg/dL 1.6 - 2 .3 mg/dL [facility] Test Performed by [facility], [address] [place] [address] [facility] Add On Lab Teston 06-06-2021 Add On Accepted [facility] Comment on above: Specimen available & acceptable for analysis. Test Performed by [facility], [address] [place] , [address] LAB [facility] Add on test from HISon 06-06 Add on test from HIS Accepted Normal [facility] Comment on above: Result Comment: Spec imen available & acceptable for analysis. Performed By: #### A DDON #### [facility] [address] [place] [address] CT Abdomen and Pelvis W cont rast Main 06-06-2021 Patient Name: MARIA DE JESUS SÁNCHEZ Computed Tomography ACCESSION EXAM DATE/TIME PROCEDURE ORDERING PROVIDER [id number] 06/06/2021 17:[address] Abdomen/Pelvis w/ IV [id number] CATALINO ROTH Contrast (IV Onl CPT code 95084 Q9967 Reason For Exam (CT Abdomen/Pelvis w/ [...] CHRISTOPHER Transcribed Date and Time: 06/06/2021 6:40 [facility] Zuly De La O MD - 06/06/2021 Patient Name: MARIA DE JESUS HOGAN Computed Tomography ACCESSION EXAM DATE/TIME PROCEDURE ORDERING PROVIDER [id number] 06/06/2021 17:[address] Abdomen/Pelvis w/ IV [id number] -CATALINO DIALLO Contrast (IV Onl CPT code 66970 Q9967 Reason For Exam (CT Abdomen/Pelvis w/ [...] Pelvis W cont rast IVOrdered By: Zuly D eLa O on 06-06-2021 [facility] Work Phone: CT Abdomen/Pelvis w/ Contras ton 06-06-2021 CT Abdomen/Pelvis w/ Contrast Patient Name: MARIA DE JESUS HOGAN Computed Tomography ACCESSION EXAM DATE/TIME PROCEDURE ORDERING PROVIDER [id number] 06/06/2021 17:[address] Abdomen/Pelvis w/ IV [id number] CATALINO ROTH Contrast (IV Onl CPT code 24095 Q9967 Reason For Exam (CT Abdomen/Pelvis w/ [...] Transcribed Date and Time: 06/06/2021 6:40 Normal [facility] Comp Metabolic Panelon 06-06 ALP [Catalytic activity/Vol] 101 U/L Normal 38-126 [facility] Comment on above: Performed By: #### E TOH4, PT, HEMOG, LIPA4, MG3, CMP3 #### [facility] [address] [place] [address] Anion gap [Moles/Vol] 14 mmol/L High 3-13 [facility] Comment on above: Performed By: #### E TOH4, PT, HEMOG, LIPA4, MG3, CMP3 #### [facility] [address] [place] [address] AST [Catalytic activity/Vol] 191 U/L High 15-46 [facility] Comment on above: Performed By: #### E TOH4, PT, HEMOG, LIPA4, MG3, CMP3 #### [facility] [address] [place] [address] Bilirubin [Mass/Vol] 0.7 mg/dL Normal 0.2-1.3 [facility] Comment on above: Performed By: #### E TOH4, PT, HEMOG, LIPA4, MG3, CMP3 #### [facility] [address] [place] [address] CO2 [Moles/Vol] 25 mmol/L Normal 22-30 [facility] Comment on above: Performed By: #### E TOH4, PT, HEMOG, LIPA4, MG3, CMP3 #### [facility] [address] [place] [address] Creatinine [Mass/Vol] 0.73 mg/dL Normal 0.52-1.25 [facility] Comment on above: Performed By: #### E TOH4, PT, HEMOG, LIPA4, MG3, CMP3 #### [facility] [address] [place] [address] eGFR OTHER > 90.0 Normal >60 [facility] Comment on above: Result Comment: [...] TOH4, PT, HEMOG, LIPA4, MG3, CMP3 #### [facility] [address] [place] [address] GFR/1.73 sq M.predicted among blacks MDRD (S/P/Bld) [Vol rate/Area] mL/min/{1.73_m2} Normal >60 [facility] Comment on above: Performed By: #### E TOH4, PT, HEMOG, LIPA4, MG3, CMP3 #### [facility] [address] [place] [address] Protein [Mass/Vol] 7.8 g/dL Normal 6.3-8.2 [facility] Comment on above: Performed By: #### E TOH4, PT, HEMOG, LIPA4, MG3, CMP3 #### [facility] [address] [place] [address] Urea nitrogen [Mass/Vol] 7 mg/dL Normal 7-17 [facility] Comment on above: Performed By: #### E TOH4, PT, HEMOG, LIPA4, MG3, CMP3 #### [facility] [address] [place] [address] Chloride [Moles/Vol] 95 mmol/L Low 98-107 [facility] Comment on above: Performed By: #### E TOH4, PT, HEMOG, LIPA4, MG3, CMP3 #### [facility] [address] [place] [address] Potassium [Moles/Vol] 4.1 mmol/L Normal 3.5-5.1 [facility] Comment on above: Result Comment: Slig htly hemolysed, interpret with caution. Performed By: #### E TOH4, PT, HEMOG, LIPA4, MG3, CMP3 #### [facility] [address] [place] [address] Sodium [Moles/Vol] 133 mmol/L Low 135-145 [facility] Comment on above: Performed By: #### E TOH4, PT, HEMOG, LIPA4, MG3, CMP3 #### [facility] [address] [place] [address] Albumin [Mass/Vol] 4.6 g/dL Normal 3.5-5.0 [facility] Comment on above: Performed By: #### E TOH4, PT, HEMOG, LIPA4, MG3, CMP3 #### [facility] [address] [place] [address] ALT [Catalytic activity/Vol] 197 U/L High 0-49 [...] TOH4, PT, HEMOG, LIPA4, MG3, CMP3 #### [facility] [address] [place] [address] Calcium [Mass/Vol] 9.2 mg/dL Normal 8.4-10.4 [facility] Comment on above: Performed By: #### E TOH4, PT, HEMOG, LIPA4, MG3, CMP3 #### [facility] [address] [place] [address] Glucose [Mass/Vol] 105 mg/dL High 70-100 [facility] Comment on above: Performed By: #### E TOH4, PT, HEMOG, LIPA4, MG3, CMP3 #### [facility] [address] [place] [address] Comprehensive Metabolic Pane arnulfo 06-06-2021 Albumin [Mass/Vol] [...] - 1.25 mg/dL [facility] EGFR IF NonAfrican Brazilian >90.0 >60 mL/min [facility] Comment on above: [...] fraction] 7.8 g/dL 6.3 - 8.2 g/dL [facility] GFR/1.73 sq M.predicted among blacks MDRD (S/P/Bld) [Vol rate/Area] mL/min/{1.73_m2} >60 mL/min [facility] Interpretation and review of laboratory results Abnormal [facility] Potassium [Moles/Vol] 4.1 mmol/L 3.5 - 5.1 mmol/L [facility] Comment on above: Slightly hemolysed, interpret with caution. Sodium [Moles/Vol] 133 mmol/L Low 135 - 145 mmol/L [facility] Urea nitrogen (BldV) [Mass/Vol] 7 mg/dL 7 - 17 mg/dL [facility] EKG 12 Lead - Chest Painon 0 06-06-2021 [facility] Test Date: 2021-06-06 Pat Name: [facility] Department: 2BED Room: 05 Gender: M 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: ROJAS : 1965 Requested By: CATALINO DIALLO Order Number: [id number] Reading MD: Catalino Diallo Measurements Intervals [place] Rate: 93 P: 60 TX: 168 QRS: 75 QRSD: 86 T: 48 QT: 372 QTc: 463 Interpretive Statements SINUS RHYTHM rate 93 Normal intervals and QRS duration NO acute ischemic changes Electronically Signed On 06-06-2021 17:05:37 EST by Catalino Diallo [facility] Catalino Diallo, DO - 06/06/2021 [facility] Test Date: 2021-06-06 Pat Name: [facility] Department: 2BED Room: 05 Gender: M 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: ROJAS : 1965 Requested By: CATALINO DIALLO Order Number: [id number] Reading MD: Catalino Diallo Measurements Intervals [place] Rate: 93 P: 60 TX: 168 QRS: 75 QRSD: 86 T: 48 QT: 372 QTc: 463 Interpretive Statements SINUS RHYTHM rate 93 Normal intervals and QRS duration NO acute ischemic changes Electronically Signed On 06-06-2021 17:05:37 EST by Catalino Diallo [facility] Work Phone: [facility] Work Phone: Ethanolon 06-06-2021 Ethanol Lvl 0.364 g/dL Critically high 0.000 - 0.010 g/dL [facility] Comment on above: NOTE: This result is for medical treatment only. Analysis performed using non-forensic procedures. Interpretation and review of laboratory results Abnormal [facility] Test Performed by [facility], [address] LAB [facility] Ethanol Serum/Plasmaon 06-06 Ethanol-Serum/Plasma 0.364 g/dL Critically high 0.00 0-0.01 0 [facility] Comment on above: Result Comment: NOTE : This result is for medical treatment only. Analysis performed using non-forensic procedures. Performed By: #### C UA2 #### [facility] [address] [place] [address] Hemogramon 06-06-2021 Erythrocyte distribution width (RBC) [Ratio] 13.6 % Normal 11.5-14.5 [facility] Comment on above: Performed By: #### E TOH4, PT, HEMOG, LIPA4, MG3, CMP3 #### [facility] [address] [place] [address] Hematocrit (Bld) [Volume fraction] 49.2 % Normal 40.0-52.0 [facility] Comment on above: Performed By: #### E TOH4, PT, HEMOG, LIPA4, MG3, CMP3 #### [facility] [address] [place] [address] Hemoglobin (Bld) [Mass/Vol] 17.0 g/dL Normal 13.0-18.0 [facility] Comment on above: Performed By: #### E TOH4, PT, HEMOG, LIPA4, MG3, CMP3 #### [facility] [address] [place] [address] MCH (RBC) [Entitic mass] 33.1 pg Normal 26.0-34.0 [facility] Comment on above: Performed By: #### E TOH4, PT, HEMOG, LIPA4, MG3, CMP3 #### [facility] [address] [place] [address] MCHC 34.6 % Normal 32.0-36.0 [facility] Comment on above: Performed By: #### E TOH4, PT, HEMOG, LIPA4, MG3, CMP3 #### [facility] [address] [place] [address] MCV (RBC) [Entitic vol] 95.6 fL Normal 80.0-98.0 [facility] Comment on above: Performed By: #### E TOH4, PT, HEMOG, LIPA4, MG3, CMP3 #### [facility] [address] [place] [address] Platelet mean volume (Bld) [Entitic vol] 6.6 fL Low 7.4-10.4 [facility] Comment on above: Performed By: #### E TOH4, PT, HEMOG, LIPA4, MG3, CMP3 #### [facility] [address] [place] [address] Platelets (Bld) [#/Vol] 271 10*3/uL Normal 140-440 [facility] Comment on above: Performed By: #### E TOH4, PT, HEMOG, LIPA4, MG3, CMP3 #### [facility] [address] [place] [address] RBC (Bld) [#/Vol] 5.14 10*6/uL Normal 4.40-5.90 [facility] Comment on above: Performed By: #### E TOH4, PT, HEMOG, LIPA4, MG3, CMP3 #### [facility] [address] [place] [address] WBC (Bld) [#/Vol] 4.8 10*3/uL Normal 3.6-10.7 [facility] Comment on above: Performed By: #### E TOH4, PT, HEMOG, LIPA4, MG3, CMP3 #### [facility] [address] [place] [address] Hemogram (CBC)on 06-06-2021 Hematocrit (Bld) [Volume fraction] 49.2 % 40.0 - 52.0 % [facility] Hemoglobin.gastrointest inal spec 1 Ql (Stl) 17.0 g/dL 13.0 - 18.0 g/dL [facility] Interpretation and review of laboratory results [...] - 10.7 10*3/uL [facility] Test Performed by [facility], [address] , [place], [place] [id number] [place] [address] LAB [facility] Lipaseon 06-06-2021 Lipase [Catalytic activity/Vol] 197 U/L Normal 23-300 [facility] Comment on above: Performed By: #### E TOH4, PT, HEMOG, LIPA4, MG3, CMP3 #### [facility] [address] [place] [address] Magnesiumon 06-06-2021 Magnesium [Mass/Vol] 2.0 mg/dL Normal 1.6-2.3 [facility] Comment on above: Performed By: #### E TOH4, PT, HEMOG, LIPA4, MG3, CMP3 #### [facility] [address] [place] [address] No Panel Informationon 06-06 Test Performed by [facility], [address] , [address] LAB [facility] Prothrombin Timeon INR 1.0 Normal 0.9-1.1 [facility] Comment on above: Result Comment: [...] TOH4, PT, HEMOG, LIPA4, MG3, CMP3 #### [facility] [address] [place] [address] PT Coag (PPP) [Time] 10.7 s Normal 9.0-12.0 [facility] Comment on above: . Result Comment: . Performed By: #### E TOH4, PT, HEMOG, LIPA4, MG3, CMP3 #### [facility] [address] [place] [address] Protime-INRon 06-06-2021 INR Coag (Bld) [Relative time] 1.0 {INR} [facility] Comment on above: Recommended Anticoag ulant [...] to prevent Myocardial Infarction Test Performed by [facility], [address] , [address] LAB [facility] TS GELon 06-06-2021 TS GEL ABO Group: A Rh, Gel: POS Antibody Screen Gel: NEG Normal [facility] Comment on above: Performed By: #### C UA2 #### [facility] [address] [place] [address] TYPE AND SCREENon 06-06-2021 ABO Grouping A [facility] Rh Type Positive [facility] Test Performed by [facility], [address] , [address] LAB [facility] Complete Urinalysison 2021 Appearance (U) Clear Normal Clear [facility] Comment on above: Result Comment: . Performed By: #### C UA2 #### [facility] [address] [place] [address] Bilirubin,Urine Negative Normal Negative [facility] Comment on above: Result Comment: . Performed By: #### C UA2 #### [facility] [address] [place] [address] Color (U) LIGHT YELLOW Normal Lt. Yellow [facility] Comment on above: Result Comment: . Performed By: #### C UA2 #### [facility] [address] [place] [address] Glucose Ql (U) Normal Normal Normal (<70) [facility] Comment on above: Result Comment: . Performed By: #### C UA2 #### [facility] [address] [place] [address] Ketone,Urine Negative Normal Negative [facility] Comment on above: Result Comment: . Performed By: #### C UA2 #### [facility] [address] [place] [address] Leukocytes,Urine Negative Normal Negative [facility] Comment on above: Result Comment: . Performed By: #### C UA2 #### [facility] [address] [place] [address] Nitrites,Urine Negative Normal Negative [facility] Comment on above: Result Comment: . Performed By: #### C UA2 #### [facility] [address] [place] [address] Occult Blood,Urine Negative Normal Negative [facility] Comment on above: Result Comment: . Performed By: #### C UA2 #### [facility] [address] [place] [address] pH,Urine 6.5 Normal 5.0-8.0 [facility] Comment on above: Result Comment: . Performed By: #### C UA2 #### [facility] [address] [place] [address] Specific [place],Urine 1.008 Normal 1.005 - 1.030 [facility] Comment on above: Result Comment: . Performed By: #### C UA2 #### [facility] [address] [place] [address] Total Protein,Urine Negative Normal Negative [facility] Comment on above: Result Comment: . Performed By: #### C UA2 #### [facility] [address] [place] [address] Urobilinogen,Urine Normal Normal Normal (0-1) [facility] Comment on above: Result Comment: . Performed By: #### C UA2 #### [facility] [address] [place] [address] UrinalysisOrdered By: Gary Sheikh on 04-06-2021 Appearance (U) Clear Clear NA [facility] Work Phone: Comment on above: . Bilirubin Urine Negative Negative mg/dL [facility] Work Phone: Comment on above: . Color (U) LIGHT YELLOW Lt. Yellow NA [facility] Work Phone: Comment on above: . Glucose, Ur Normal Normal (<70) mg/dL [facility] Work Phone: Comment on above: . Ketones Ql (U) Negative Negative mg/dL [facility] Work Phone: Comment on above: . LEUKOCYTES, UA Negative Negative Estefani/uL [facility] Work Phone: Comment on above: . Nitrite, Urine Negative Negative NA [facility] Work Phone: Comment on above: . Occult Blood,Urine Negative Negative mg/dL [facility] Work Phone: Comment on above: . pH (U) 6.5 [pH] [facility] Work Phone: Comment on above: . Specific [place], Urine 1.008 [facility] Work Phone: Comment on above: . Total Protein, Urine Negative Negativ e mg/dL [facility] Work Phone: Comment on above: . Urobilinogen, Urine Normal Normal (0-1) mg/dL [facility] Work Phone: Comment on above: . [facility] Work Phone: Urinalysison 04-06-2021 Test Performed by [facility], [address] [place], [place] [address] LAB Comp Metabolic Panelon 02-15 Albumin [Mass/Vol] 4.1 g/dL Normal 3.5-5.0 [facility] Comment on above: Performed By: #### C OVAG #### [facility] [address] [place] [address] ALP [Catalytic activity/Vol] 92 U/L Normal 38-126 [facility] Comment on above: Performed By: #### C OVAG #### [facility] [address] [place] [address] ALT [Catalytic activity/Vol] 109 U/L High 0-49 [facility] Comment on above: Result Comment: The ALT test is performed by an updated assay method. Please note that the reference intervals have been changed and are now sex specific. Performed By: #### C OVAG #### [facility] [address] [place] [address] Anion gap [Moles/Vol] 12 mmol/L Normal 3-13 [facility] Comment on above: Performed By: #### C OVAG #### [facility] [address] [place] [address] AST [Catalytic activity/Vol] 92 U/L High 15-46 [facility] Comment on above: Performed By: #### C OVAG #### [facility] [address] [place] [address] Bilirubin [Mass/Vol] 0.4 mg/dL Normal 0.2-1.3 [facility] Comment on above: Performed By: #### C OVAG #### [facility] [address] [place] [address] Calcium [Mass/Vol] 8.8 mg/dL Normal 8.4-10.4 [facility] Comment on above: Performed By: #### C OVAG #### [facility] [address] [place] [address] Chloride [Moles/Vol] 100 mmol/L Normal 98-107 [facility] Comment on above: Performed By: #### C OVAG #### [facility] [address] [place] [address] CO2 [Moles/Vol] 25 mmol/L Normal 22-30 [facility] Comment on above: Performed By: #### C OVAG #### [facility] [address] [place] [address] Creatinine [Mass/Vol] 0.58 mg/dL Normal 0.52-1.25 [facility] Comment on above: Performed By: #### C OVAG #### [facility] [address] [place] [address] eGFR OTHER > 90.0 Normal >60 [facility] Comment on above: Result Comment: [...] secretion. Performed By: #### C OVAG #### [facility] [address] [place] [address] GFR/1.73 sq M.predicted among blacks MDRD (S/P/Bld) [Vol rate/Area] mL/min/{1.73_m2} Normal >60 [facility] Comment on above: Performed By: #### C OVAG #### [facility] [address] [place] [address] Glucose [Mass/Vol] 129 mg/dL High 70-100 [facility] Comment on above: Performed By: #### C OVAG #### [facility] [address] [place] [address] Potassium [Moles/Vol] 3.9 mmol/L Normal 3.5-5.1 [facility] Comment on above: Performed By: #### C OVAG #### [facility] [address] [place] [address] Protein [Mass/Vol] 7.0 g/dL Normal 6.3-8.2 [facility] Comment on above: Performed By: #### C OVAG #### [facility] [address] [place] [address] Sodium [Moles/Vol] 137 mmol/L Normal 135-145 [facility] Comment on above: Performed By: #### C OVAG #### [facility] [address] [place] [address] Urea nitrogen [Mass/Vol] 3 mg/dL Low 7-17 [facility] Comment on above: Performed By: #### C OVAG #### [facility] [address] [place] [address] Drugs of Abuseon 02-15-2021 Amphetamines, Ur Negative Normal [facility] Comment on above: Performed By: #### D RGA4 #### [facility] [address] [place] [address] Barbiturates, Ur Negative Normal [facility] Comment on above: Performed By: #### D RGA4 #### [facility] [address] [place] [address] Benzodiazepines, Ur Negative Normal [facility] Comment on above: Performed By: #### D RGA4 #### [facility] [address] [place] [address] Cocaine, Ur Negative Normal [facility] Comment on above: Performed By: #### D RGA4 #### [facility] [address] [place] [address] Methadone, Ur Negative Normal [facility] Comment on above: Performed By: #### D RGA4 #### [facility] [address] [place] [address] Opiates, Ur Negative Normal [facility] Comment on above: Performed By: #### D RGA4 #### [facility] [address] [place] [address] Oxycodone/Oxymorphine,U r Negative Normal [facility] Comment on above: Performed By: #### D RGA4 #### [facility] [address] [place] [address] Phencyclidine (PCP), Ur Negative Normal [facility] Comment on above: Result Comment: The [...] order. Performed By: #### D RGA4 #### [facility] [address] [place] [address] ED Provider Noteon ED Provider Note That [...] We have contacted the detox unit at [facility] who will accept this patient in admission. [...] are mis-transcribed.) CATALINO MUJICA MD Acute Care [facility] Catalino Mujica MD 02/15/21 1837 [facility] ED Provider Note [facility] ED eMERGENCY dEPARTMENT eNCOUnter Pt Name: Maria De Jesus Hogan Birthdate 1965 Date of evaluation: 02/15/2021 Provider: Shelly Clarke APRN - GAUGER DELIVERY This patient was seen in conjunction with Dr. Mujica CHIEF COMPLAINT Chief Complaint Patient presents with ? Alcohol Problem HISTORY OF PRESENT ILLNESS (Location/Symptom, Timing/Onset,Context/Setti ng, Quality, Duration, Modifying Factors, Severity) Note limiting factors. HPI Maria De Jesus Hogan is a 55 y.o. male who presents to the emergency department with alcohol intoxication and requesting alcohol detox. Patient states he was admitted at [facility] a few years ago was sober for [...] and Family: Not on file ? Attends [employer] Services: Not on file ? Active Member [...] in t (more content not included)... Normal [facility] Ethanol Serum/Plasmaon 02-15 Ethanol-Serum/Plasma 0.288 g/dL High 0.000-0 .01 0 [facility] Comment on above: Result Comment: NOTE : This result is for medical treatment only. Analysis performed using non-forensic procedures. Performed By: #### C OVAG #### [facility] [address] [place] [address] Hemogram w/ Autodiffon 02-15 Abs Baso Cnt 0.1 10*3/uL Normal 0.0-0.2 [facility] Comment on above: Performed By: #### C OVAG #### [facility] [address] [place] [address] Abs Neutrophile Cnt 3.2 10*3/uL Normal 1.8-7.0 [facility] Comment on above: Performed By: #### C OVAG #### [facility] [address] [place] [address] Basophils/100 WBC (Bld) 1.1 % Normal 0.0-2.0 [facility] Comment on above: Performed By: #### C OVAG #### [facility] [address] [place] [address] Eosinophils (Bld) [#/Vol] 0.1 10*3/uL Normal 0.0-0.5 [facility] Comment on above: Performed By: #### C OVAG #### [facility] [address] [place] [address] Eosinophils/100 WBC (Bld) 2.4 % Normal 1.0-6.0 [facility] Comment on above: Performed By: #### C OVAG #### [facility] [address] [place] [address] Erythrocyte distribution width (RBC) [Ratio] 14.2 % Normal 11.5-14.5 [facility] Comment on above: Performed By: #### C OVAG #### [facility] [address] [place] [address] Granulocytes/100 WBC (Bld) 55.7 % Normal 40.0-80.0 [facility] Comment on above: Performed By: #### C OVAG #### [facility] [address] [place] [address] Hematocrit (Bld) [Volume fraction] 45.9 % Normal 40.0-52.0 [facility] Comment on above: Performed By: #### C OVAG #### [facility] [address] [place] [address] Hemoglobin (Bld) [Mass/Vol] 15.7 g/dL Normal 13.0-18.0 [facility] Comment on above: Performed By: #### C OVAG #### [facility] [address] [place] [address] Lymphocytes (Bld) [#/Vol] 1.7 10*3/uL Normal 1.0-4.3 [facility] Comment on above: Performed By: #### C OVAG #### [facility] [address] [place] [address] Lymphocytes/100 WBC (Bld) 29.7 % Normal 20.0-40.0 [facility] Comment on above: Performed By: #### C OVAG #### [facility] [address] [place] [address] MCH (RBC) [Entitic mass] 34.2 pg High 26.0-34.0 [facility] Comment on above: Performed By: #### C OVAG #### [facility] [address] [place] [address] MCHC 34.2 % Normal 32.0-36.0 [facility] Comment on above: Performed By: #### C OVAG #### [facility] [address] [place] [address] MCV (RBC) [Entitic vol] 99.9 fL High 80.0-98.0 [facility] Comment on above: Performed By: #### C OVAG #### [facility] [address] [place] [address] Monocytes (Bld) [#/Vol] 0.6 10*3/uL Normal 0.0-0.8 [facility] Comment on above: Performed By: #### C OVAG #### [facility] [address] [place] [address] Monocytes/100 WBC (Bld) 11.1 % High 2.0-10.0 [facility] Comment on above: Performed By: #### C OVAG #### [facility] [address] [place] [address] Platelet mean volume (Bld) [Entitic vol] 6.6 fL Low 7.4-10.4 [facility] Comment on above: Performed By: #### C OVAG #### [facility] [address] [place] [address] Platelets (Bld) [#/Vol] 230 10*3/uL Normal 140-440 [facility] Comment on above: Performed By: #### C OVAG #### [facility] [address] [place] [address] RBC (Bld) [#/Vol] 4.59 10*6/uL Normal 4.40-5.90 [facility] Comment on above: Performed By: #### C OVAG #### [facility] [address] [place] [address] WBC (Bld) [#/Vol] 5.7 10*3/uL Normal 3.6-10.7 [facility] Comment on above: Performed By: #### C OVAG #### [facility] [address] [place] [address] SARS-CoV-2 Antigenon 021 SARS-CoV-2 Antigen Negative Normal Negative [facility] Comment on above: Result Comment: A negative result does not rule out the possibility of SARS-CoV-2 infection. NAAT-based methods should be considered for symptomatic patients presenting greater than seven days after onset of symptoms. Method: Lateral flow immunoassay. Fact sheets for healthcare providers and patients can be found at the following sites: https://www.fda.gov/media/937315/download https://www.fda.gov/media/926923/download Performed By: #### C OVAG #### [facility] [address] [place] [address] CR Chest PA/LATon 11-18-2020 CR Chest PA/LAT Patient Name: MARIA DE JESUS SÁNCHEZ Diagnostic Radiology ACCESSION EXAM DATE/TIME PROCEDURE ORDERING PROVIDER [id number] 11/18/2020 13:11 EDT CR Chest PA and LAT MD RASHEED DIANA CPT code 18589 Reason For Exam (CR Chest PA and [...] Transcribed Date and Time: 11/18/2020 2:41 Normal [facility] XR CHEST (2 VW)Ordered By: Rolando Rasheed on 11-18-2020 Patient Name: MARIA DE JESUS SÁNCHEZ Diagnostic Radiology ACCESSION EXAM DATE/TIME PROCEDURE ORDERING PROVIDER [id number] 11/18/2020 13:11 EDT CR Chest PA & LAT MD RASHEED DIANA CPT code 45957 Reason For Exam (CR Chest PA & [...] ANTHONY Transcribed Date and Time: 11/18/2020 2:41 [facility] Work Phone: Jonny, [facility] Incoming Radiology Results From [facility] - 11/18/2020 2:41 PM EDT Patient Name: MARIA DE JESUS HOGAN Diagnostic Radiology ACCESSION EXAM DATE/TIME PROCEDURE ORDERING PROVIDER [id number] 11/18/2020 13:11 EDT CR Chest PA & LAT MD KATHYA, LYNDA CPT code 30077 Reason For Exam (CR Chest PA & [...] and Time: 11/18/2020 2:41 [facility] Work Phone: [phone] [facility] Work Phone: [phone] Comprehensive Metabolic Pane lOrdered By: Lynda Rasheed on 09-01-2020 Albumin [Mass/Vol] 4.3 g/dL 3.5 - 5.0 g/dL [facility] Work Phone: [phone] ALP (Bld) [Catalytic activity/Vol] 92 U/L 38 - 126 U/L [facility] Work Phone: [phone] ALT [Catalytic activity/Vol] 32 U/L 0 - 49 U/L [facility] Work Phone: [phone] Comment on above: The ALT test is perf ormed by an updated assay method. Please note that the reference intervals have been changed and are now sex specific. Anion gap [Moles/Vol] 8 mmol/L 3 - 13 mmol/L [facility] Work Phone: [phone] AST [Catalytic activity/Vol] 33 U/L 15 - 46 U/L [facility] Work Phone: [phone] Bilirubin [Mass/Vol] 0.4 mg/dL 0.2 - 1 .3 mg/dL [facility] Work Phone: [phone] Calcium [Mass/Vol] 9.0 mg/dL 8.4 - 10. 4 mg/dL [facility] Work Phone: Chloride [Moles/Vol] 101 mmol/L 98 - 10 7 mmol/L [facility] Work Phone: [phone] CO2 [Moles/Vol] 27 mmol/L 22 - 30 mmol/L [facility] Work Phone: [phone] Creatinine [Mass/Vol] 0.7 mg/dL 0.52 - 1.25 mg/dL [facility] Work Phone: [phone] EGFR IF NonAfrican Brazilian >90.0 >60 mL/min [facility] Work Phone: [phone] Comment on above: KDIGO guidelines pro [...] fraction] 7.6 g/dL 6.3 - 8.2 g/dL [facility] Work Phone: [phone] GFR/1.73 sq M.predicted among blacks MDRD (S/P/Bld) [Vol rate/Area] mL/min/{1.73_m2} >60 mL/min [facility] Work Phone: [phone] Glucose [Mass/Vol] 106 mg/dL High 70 - 100 mg/dL [facility] Work Phone: [phone] Potassium [Moles/Vol] 4.1 mmol/L 3.5 - 5.1 mmol/L [facility] Work Phone: [phone] Sodium [Moles/Vol] 136 mmol/L 135 - 145 mmol/L [facility] Work Phone: [phone] Urea nitrogen (BldV) [Mass/Vol] 7 mg/dL 7 - 20 mg/dL [facility] Work Phone: [phone] Lipid PanelOrdered By: Lynda Rasheed on 09-01-2020 Cholesterol [Mass/Vol] 285 mg/dL Abnormal <200 [facility] Work Phone: [phone] Cholesterol in HDL [Mass/Vol] 68 mg/dL High 40 - 60 mg/dL [facility] Work Phone: Cholesterol in LDL [Mass/Vol] 193 mg/dL Abnormal <100 [facility] Work Phone: Cholesterol.total/Nicole sterol in HDL [Mass ratio] 4 {ratio} [facility] Work Phone: [phone] Comment on above: Ref Range: < 3 Low Risk for CHD 3-6 Mod Risk for CHD > 6 High Risk for CHD Triglyceride [Mass/Vol] 120 mg/dL <150 [facility] Work Phone: [phone] No Panel InformationOrdered By: Lynda Rasheed on 09-01-2020 Interpretation and review of laboratory results Abnormal [facility] Work Phone: [phone] Test Performed by [facility], [address] Work Phone: [facility] Work Phone: PSA, Prostatic Specific Anti genOrdered By: Lynda Rasheed on 09-01-2020 Prostatic Specific Ag 0.397 ng/mL <4.000 [facility] Work Phone: Comment on above: Testing performed on the [employer] using an immunometric methodology. Results obtained by different methods should not be used interchangeably. Test Performed by [facility], [address] , [address] Work Phone: [phone] [facility] Work Phone: [phone] Basic Metabolic Panel w/ Ref santi to MGon 06-10-2020 Anion gap [Moles/Vol] 6 mmol/L 3 - 13 mmol/L [facility] Work Phone: [phone] Calcium [Mass/Vol] 8.3 mg/dL Low 8.4 - 10. 4 mg/dL [facility] Work Phone: Chloride [Moles/Vol] 95 mmol/L Low 98 - 10 7 mmol/L [facility] Work Phone: [phone] CO2 [Moles/Vol] 31 mmol/L High 22 - 30 mmol/L [facility] Work Phone: [phone] Creatinine [Mass/Vol] 0.71 mg/dL 0.52 - 1.25 mg/dL [facility] Work Phone: [phone] EGFR IF NonAfrican Brazilian >90.0 >60 mL/min [facility] Work Phone: [phone] Comment on above: KDIGO guidelines pro [...] 135 - 145 mmol/L [facility] Work Phone: [phone] Urea nitrogen [Mass/Vol] 3 mg/dL Low 7 - 20 mg/dL [facility] Work Phone: CBC auto differentialon 05-30 Absolute Baso # 0.0 10*3/uL 0.0 - 0.2 10*3/uL [facility] Work Phone: [phone] Absolute Neut # 2.1 10*3/uL 1.8 - 7.0 10*3/uL [facility] Work Phone: [phone] Basophils/100 WBC (Bld) 1.5 % 0.0 - 2.0 % [facility] Work Phone: [phone] Eosinophils (Bld) [#/Vol] 0.0 10*3/uL 0.0 - 0.5 10*3/uL [facility] Work Phone: [phone] Eosinophils/100 WBC (Bld) 1.3 % 1.0 - 6.0 % [facility] Work Phone: [phone] Erythrocyte distribution width (RBC) [Ratio] 15.4 % High 11.5 - 14.5 % [facility] Work Phone: [phone] Granulocytes/100 WBC (Bld) 66.1 % 40.0 - 80.0 % [facility] Work Phone: [phone] Hematocrit (Bld) [Volume fraction] 43.4 % 40.0 - 52.0 % [facility] Work Phone: [phone] Hemoglobin (Bld) [Mass/Vol] 14.9 g/dL 13.0 - 18.0 g/dL [facility] Work Phone: [phone] Interpretation and review of laboratory results Abnormal [facility] Work Phone: [phone] Lymphocytes (Bld) [#/Vol] 0.6 10*3/uL Low 1.0 - 4.3 10*3/uL [facility] Work Phone: [phone] Lymphocytes/100 WBC (Bld) 18.3 % Low 20.0 - 40.0 % [facility] Work Phone: [phone] MCH (RBC) [Entitic mass] 35.0 pg High 26.0 - 34.0 pg [facility] Work Phone: [phone] MCHC (RBC) [Mass/Vol] 34.3 % 32.0 - 36.0 % [facility] Work Phone: [phone] MCV (RBC) [Entitic vol] [...] [facility] Work Phone: [phone] Test Performed by [address] [address] [facility] Work Phone: [phone] Hepatic function panelon Albumin [Mass/Vol] 3.8 g/dL 3.5 - 5.0 g/dL [facility] Work Phone: ) ALP [Catalytic activity/Vol] 124 U/L 38 - 126 U/L [facility] Work Phone: ) ALT [Catalytic activity/Vol] 229 U/L High 0 - 49 U/L [facility] Work Phone: Comment on above: The ALT test is perf ormed by an updated assay method. Please note that the reference intervals have been changed and are now sex specific. AST [Catalytic activity/Vol] 288 U/L High 15 - 46 U/L [facility] Work Phone: [phone] Bilirubin Ql (U) 0.8 mg/dL 0.2 - 1.3 mg/dL [facility] Work Phone: [phone] Bilirubin.direct [Mass/Vol] 0.0 mg/dL 0.0 - 0.3 mg/dL [facility] Work Phone: [phone] Protein [Mass/Vol] 6.7 g/dL 6.3 - 8.2 g/dL [facility] Work Phone: [phone] Iron and TIBCon 06-10-2020 Iron [Mass/Vol] 114 ug/dL 49 - 181 ug/dL [facility] Work Phone: [phone] Sat 75 % High 15 - 50 % [facility] Work Phone: [phone] TIBC 151 ug/dL Low 261 - 497 ug/dL [facility] Work Phone: [phone] Otheron 06-10-2020 Interpretation and review of laboratory results Abnormal [facility] Work Phone: [phone] Test Performed by [facility], [address] [place] [id number] [place], [place] [address]A Work Phone: [phone] APTTon 06-09-2020 aPTT Coag (Bld) [Time] 26.8 s 20.0 - 30.5 s [facility] Work Phone: [phone] Comment on above: NOTE: The therapeuti c time for Heparin anticoagulation, based on Xa activity inhibition, is an APTT of 46-80 seconds. Comprehensive Metabolic Pane arnulfo 06-09-2020 Albumin [Mass/Vol] 4.4 g/dL 3.5 - 5.0 g/dL [facility] Work Phone: [phone] ALP [Catalytic activity/Vol] 144 U/L High 38 - 126 U/L [facility] Work Phone: [phone] ALT [Catalytic activity/Vol] 260 U/L High 0 - 49 U/L [facility] Work Phone: [phone] Comment on above: The ALT test is perf ormed by an updated assay method. Please note that the reference intervals have been changed and are now sex specific. Anion gap [Moles/Vol] 15 mmol/L High 3 - 13 mmol/L [facility] Work Phone: AST [Catalytic activity/Vol] 335 U/L High 15 - 46 U/L [facility] Work Phone: [phone] Bilirubin Ql (U) 0.7 mg/dL 0.2 - 1.3 mg/dL [facility] Work Phone: [phone] Calcium [Mass/Vol] 9.1 mg/dL 8.4 - 10. 4 mg/dL [facility] Work Phone: [phone] Chloride [Moles/Vol] 99 mmol/L 98 - 10 7 mmol/L [facility] Work Phone: [phone] CO2 [Moles/Vol] 23 mmol/L 22 - 30 mmol/L [facility] Work Phone: [phone] Creatinine [Mass/Vol] 0.7 mg/dL 0.52 - 1.25 mg/dL [facility] Work Phone: [phone] EGFR IF NonAfrican Brazilian >90.0 >60 mL/min [facility] Work Phone: [phone] Comment on above: KDIGO guidelines pro [...] rate/Area] mL/min/{1.73_m2} >60 mL/min [facility] Work Phone: [phone] Glucose [Mass/Vol] 99 mg/dL 70 - 100 mg/dL [facility] Work Phone: [phone] Potassium [Moles/Vol] 4.0 mmol/L 3.5 - 5.1 mmol/L [facility] Work Phone: Protein [Mass/Vol] 7.0 g/dL 6.3 - 8.2 g/dL [facility] Work Phone: Sodium [Moles/Vol] 137 mmol/L 135 - 145 mmol/L [facility] Work Phone: Urea nitrogen [Mass/Vol] 4 mg/dL Low 7 - 20 mg/dL [facility] Work Phone: EKG 12 Lead - Chest Painon 0 06-09-2020 Jonny, [facility] Incoming Cardiology Results From [facility] - 06/09/2020 10:32 AM EST [facility] Test Date: 2020-06-09 Pat Name: [facility] Department: ED Room: 04 Gender: M 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: 630 : 1965 Requested By: ANTONIO MAURO Order Number: [id number] Reading MD: Paulette Reyes Measurements Intervals [place] Rate: 115 P: 77 TX: 160 QRS: 85 QRSD: 86 T: 44 QT: 332 QTc: 460 Interpretive Statements SINUS TACHYCARDIA PROBABLE LEFT ATRIAL ABNORMALITY BORDERLINE LOW VOLTAGE IN FRONTAL LEADS NONSPECIFIC T ABNORMALITIES, ANTERIOR LEADS Compared to ECG 10/03/2016 16:40:36 T-wave abnormality now present Sinus rhythm no longer present Electronically Signed On 06-09-2020 10:31:12 EST by Paulette Reyes [facility] Work Phone: [facility] Test Date: 2020-06-09 Pat Name: [facility] Department: ED Room: 04 Gender: M 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: 630 : 1965 Requested By: ANTONIO MAURO Order Number: [id number] Reading : Paulette Reyes Measurements Intervals [place] Rate: 115 P: 77 TX: 160 QRS: 85 QRSD: 86 T: 44 QT: 332 QTc: 460 Interpretive Statements SINUS TACHYCARDIA PROBABLE LEFT ATRIAL ABNORMALITY BORDERLINE LOW VOLTAGE IN FRONTAL LEADS NONSPECIFIC T ABNORMALITIES, ANTERIOR LEADS Compared to ECG 10/03/2016 16:40:36 T-wave abnormality now present Sinus rhythm no longer present Electronically Signed On 06-09-2020 10:31:12 EST by Paulette Reyes [facility] Work Phone: [phone] Ethanolon 06-09-2020 Ethanol Lvl 0.225 g/dL High 0.000 - 0.010 g/dL [facility] Work Phone: [phone] Comment on above: NOTE: This result is for medical treatment only. Analysis performed using non-forensic procedures. FOLATEon 06-09-2020 Folate 9.4 ng/mL 2.8 - 20.0 ng/mL [facility] Work Phone: [phone] Hemogram (CBC) w/Auto Diffon 06-09-2020 Absolute Baso # 0.0 10*3/uL 0.0 - 0.2 10*3/uL [facility] Work Phone: [phone] Absolute Neut # 1.2 10*3/uL Low 1.8 - 7.0 10*3/uL [facility] Work Phone: [phone] Basophils/100 WBC (Bld) 1.0 % 0.0 - 2.0 % [facility] Work Phone: [phone] Eosinophils (Bld) [#/Vol] 0.0 10*3/uL 0.0 - 0.5 10*3/uL [facility] Work Phone: [phone] Eosinophils/100 WBC (Bld) 1.3 % 1.0 - 6.0 % [facility] Work Phone: [phone] Erythrocyte distribution width (RBC) [Ratio] 15.5 % High 11.5 - 14.5 % [facility] Work Phone: [phone] Granulocytes/100 WBC (Bld) 42.8 % 40.0 - 80.0 % [facility] Work Phone: [phone] Hematocrit (Bld) [Volume fraction] 48.0 % 40.0 - 52.0 % [facility] Work Phone: [phone] Hemoglobin (Bld) [Mass/Vol] 16.4 g/dL 13.0 - 18.0 g/dL [facility] Work Phone: [phone] Interpretation and review of laboratory results Abnormal [facility] Work Phone: [phone] Lymphocytes (Bld) [#/Vol] 1.0 10*3/uL 1.0 - [...] Work Phone: [phone] Test Performed by [facility], [facility] [address] , [place], [place] [address] [facility] Work Phone: [phone] Lactic Acid, Plasmaon 2020 Interpretation and review of laboratory results Abnormal [facility] Work Phone: [phone] Lactate [Moles/Vol] 2.9 mmol/L Critically high 0.7 - 2.0 mmol/L [facility] Work Phone: Test Performed by [employer] [facility], [address] , [place] [address] [facility] Work Phone: Lipaseon 06-09-2020 Lipase [Catalytic activity/Vol] 206 U/L 23 - 300 U/L [facility] Work Phone: Otheron 06-09-2020 Test Performed by [employer] [facility], [address], [place], [place] [address] [facility] Work Phone: [phone] Test Performed by [employer] [facility], [address], [place], [place] [address] [facility] Work Phone: [phone] Interpretation and review of laboratory results Abnormal [facility] Work Phone: [phone] Test Performed by [employer] [facility], [address] , [place] [address] [facility] Work Phone: Pro[employer]-INRon 06-09-2020 INR Coag [...] [Mass/Vol] 830 pg/mL 239 - 931 pg/mL [facility] Work Phone: XR CHEST PORTABLEon 06-10-19 21 [facility]ny, [facility] Incoming Radiology Results From [facility] - 06/09/2020 9:11 AM EST Patient Name: MARIA DE JESUS HOGAN Diagnostic Radiology ACCESSION EXAM DATE/TIME PROCEDURE ORDERING PROVIDER [id number] 06/09/2020 09:07 EST CR Chest Portable MD [place], ANTONIO CPT code 32603 Reason For Exam (CR Chest Portable) vomiting [...] Radiology ACCESSION EXAM DATE/TIME PROCEDURE ORDERING PROVIDER [id number] 06/09/2020 09:07 EST CR Chest Portable MD [place], ANTONIO CPT code 12414 Reason For Exam (CR Chest Portable) vomiting [...] 0.7 % 0 - 2 % [place] Eosinophils (Bld) [#/Vol] 0.0 10*3/uL 0 - 0.5 10*3/uL [place] Eosinophils/100 WBC (Bld) 0.6 % Low 1 - 6 % [place] Hematocrit (Bld) [Volume fraction] 50.3 % 40 - 52 % [place] Hemoglobin (Bld) [Mass/Vol] 17.2 g/dL 13 - 18 g/dL [place] Lymphocytes (Bld) [#/Vol] 2.2 10*3/uL 1 - 4.3 10*3/uL [place] Lymphocytes/100 WBC (Bld) 34.6 % 20 - 40 % [place] MCH (RBC) [Entitic mass] 34.9 pg High 26 - 34 pg [place] MCV (RBC) [Entitic vol] 102.2 fL High 80 - 98 fL [place] Monocytes (Bld) [#/Vol] 0.5 10*3/uL 0 - 0.8 10*3/uL [place] Monocytes/100 WBC (Bld) 7.5 % 2 - 10 % [place] Platelets (Bld) [#/Vol] 330 10*3/uL 140 - 440 10*3/uL [place] RBC (Bld) [#/Vol] 4.92 10*6/uL 4.4 - 5.9 10*6/uL [place] WBC (Bld) [#/Vol] 6.5 10*3/uL 3.6 - 10.7 10*3/uL [place] Metabolic Panelon 08-31-2019 Albumin [Mass/Vol] 4.8 g/dL 3.5 - 5 g/dL [place] ALP [Catalytic activity/Vol] 171 U/L High 38 - 126 U/L [place] ALT [Catalytic activity/Vol] 98 U/L High 0 - 49 U/L [place] Comment on above: The ALT test is perf ormed by an updated assay method. Please note that the reference intervals have been changed and are now sex specific. Anion gap [Moles/Vol] 17 mmol/L [place] AST [Catalytic activity/Vol] 107 U/L High 15 - 46 U/L [place] Calcium [Mass/Vol] 8.8 mg/dL 8.4 - 10. 4 mg/dL [place] Chloride [Moles/Vol] 98 mmol/L 98 - 10 7 mmol/L [place] CO2 [Moles/Vol] 22 mmol/L 22 - 30 mmol/L [place] Creatinine [Mass/Vol] 0.68 mg/dL 0.52 - 1.25 mg/dL [place] GFR/1.73 sq M predicted among blacks MDRD (S/P/Bld) [Vol rate/Area] mL/min/{1.73_m2} >60 mL/min [place] Glucose [Mass/Vol] 90 mg/dL 70 - 100 mg/dL [place] Potassium [Moles/Vol] 4.5 mmol/L 3.5 - 5.1 mmol/L [place] Protein [Mass/Vol] 8.1 g/dL 6.3 - 8.2 g/dL [place] Sodium [Moles/Vol] 136 mmol/L 135 - 145 mmol/L [place] Urea nitrogen [Mass/Vol] 6 mg/dL Low 7 - 20 mg/dL [place] Otheron 08-31-2019 Amphetamines, urine Negative [place] Barbiturates, Ur Negative [place] Benzodiazepine Ur Qual Negative [place] Cocaine Metabolites, Ur Negative [place] Methadone, Urine Negative [place] Opiates, Urine Negative [place] Oxycodone Screen, Ur Negative [place] PCP, Urine Negative [place] Comment on above: The expected value [...] confirmation under separate order. Test Performed by [facility], [facility] [place] [address] [place] Bilirubin Ql (U) 0.7 mg/dL 0.2 - 1.3 mg/dL [place] EGFR IF NonAfrican Brazilian >90.0 >60 mL/min [place] Comment on above: KDIGO guidelines pro [...] 0.284 g/dL High 0 - 0.01 g/dL [place] Comment on above: NOTE: This result is for medical treatment only. Analysis performed using non-forensic procedures. Interpretation and review of laboratory results Abnormal [place] Lipase [Catalytic activity/Vol] 140 U/L 23 - 300 U/L [place] Test Performed by [facility] [employer] [facility], [facility] [employer] [place] [address] [place] Absolute Baso # 0.0 10*3/uL 0 - 0.2 10*3/uL [place] Absolute Neut # 3.7 10*3/uL 1.8 - 7 10*3/uL [place] Erythrocyte distribution width (RBC) [Ratio] 15.1 % High 11.5 - 14.5 % [place] Granulocytes/100 WBC (Bld) 56.6 % 40 - 80 % [place] Interpretation and review of laboratory results Abnormal [place] MCHC (RBC) [Mass/Vol] 34.2 % 32 - 36 % [place] Platelet mean volume (Bld) [Entitic vol] 6.6 fL Low 7.4 - 10.4 fL [place] Test Performed by [facility], [address] [place] [address] [place] CBC Auto Differentialon 01-30 Absolute Baso # 0.0 10*3/uL 0 - 0.2 10*3/uL [place] Absolute Neut # 4.8 10*3/uL 1.8 - 7 10*3/uL [place] Basophils/100 WBC (Bld) 0.5 % 0 - 2 % [place] Eosinophils (Bld) [#/Vol] 0.1 10*3/uL 0 - 0.5 10*3/uL [place] Eosinophils/100 WBC (Bld) 1.6 % 1 - 6 % [place] Erythrocyte distribution width (RBC) [Ratio] 13.6 % 11.5 - 14.5 % [place] Granulocytes/100 WBC (Bld) 65.8 % 40 - 80 % [place] Hematocrit (Bld) [Volume fraction] 46.7 % 40 - 52 % [place] Hemoglobin (Bld) [Mass/Vol] 16.2 g/dL 13 - 18 g/dL [place] Interpretation and review of laboratory results Abnormal [place] Lymphocytes (Bld) [#/Vol] 1.7 10*3/uL 1 - 4.3 10*3/uL [place] Lymphocytes/100 WBC (Bld) 24.0 % 20 - 40 % [place] MCH (RBC) [Entitic mass] 32.0 pg 26 - 34 pg [place] MCHC (RBC) [Mass/Vol] 34.7 % 32 - 36 % [place] MCV (RBC) [Entitic vol] 92.4 fL 80 - 98 fL [place] Monocytes (Bld) [#/Vol] 0.6 10*3/uL 0 - 0.8 10*3/uL [place] Monocytes/100 WBC (Bld) 8.1 % 2 - 10 % [place] Platelet mean volume (Bld) [Entitic vol] 6.4 fL Low 7.4 - 10.4 fL [place] Platelets (Bld) [#/Vol] 419 10*3/uL 140 - 440 10*3/uL [place] RBC (Bld) [#/Vol] 5.06 10*6/uL 4.4 - 5.9 10*6/uL [place] WBC (Bld) [#/Vol] 7.3 10*3/uL 3.6 - 10.7 10*3/uL [place] Test Performed by [facility], [address] [place] [address] Rd. , [place], [place] [id number] [place] [address] Comprehensive Metabolic Pane arnulfo 02-14-2019 Albumin [Mass/Vol] 4.2 g/dL 3.5 - 5 g/dL [place] ALP [Catalytic activity/Vol] 107 U/L 38 - 126 U/L [place] ALT [Catalytic activity/Vol] 41 U/L 13 - 69 U/L [place] Anion gap [Moles/Vol] 9 mmol/L [place] AST [Catalytic activity/Vol] 20 U/L 15 - 46 U/L [place] Bilirubin Ql (U) 0.4 mg/dL 0.2 - 1.3 mg/dL [place] Calcium [Mass/Vol] 9.9 mg/dL 8.4 - 10. 4 mg/dL [place] Chloride [Moles/Vol] 101 mmol/L 98 - 10 7 mmol/L [place] CO2 [Moles/Vol] 28 mmol/L 22 - 30 mmol/L [place] Creatinine [Mass/Vol] 0.82 mg/dL 0.52 - 1.25 mg/dL [place] EGFR IF NonAfrican Brazilian >60.0 >60 mL/min [place] Comment on above: Source- MDRD equatio n with creatinine calibration to IDMS(NKDEP) eGFR not recommended for drug dose adjustment GFR/1.73 sq M predicted among blacks MDRD (S/P/Bld) [Vol rate/Area] mL/min/{1.73_m2} >60 mL/min [place] Glucose [Mass/Vol] 89 mg/dL 70 - 100 mg/dL [place] Potassium [Moles/Vol] 4.6 mmol/L 3.5 - 5.1 mmol/L [place], [place] Protein [Mass/Vol] 6.9 g/dL 6.3 - 8.2 g/dL [place] Sodium [Moles/Vol] 138 mmol/L 135 - 145 mmol/L [place] Urea nitrogen [Mass/Vol] 9 mg/dL 7 - 20 mg/dL [place] Lipid Panelon 02-14-2019 Cholesterol [Mass/Vol] 262 mg/dL Abnormal <200 [place] Cholesterol in HDL [Mass/Vol] 43 mg/dL 40 - 60 mg/dL [place] Cholesterol in LDL [Mass/Vol] 187 mg/dL Abnormal <100 [place] Cholesterol.total/Nicole sterol in HDL [Mass ratio] 6 {ratio} [place], [place] Comment on above: Ref Range: < 3 Low Risk for CHD 3-6 Mod Risk for CHD > 6 High Risk for CHD Interpretation and review of laboratory results Abnormal [place], [place] Triglyceride [Mass/Vol] 162 mg/dL Abnormal <150 [place], [place] Otheron 02-14-2019 Test Performed by [facility], [address] , [address], [place] CBC and Differentialon 02-14 Abs Baso <0.03 Normal <0.11 [facility] Comment on above: Performed By: #### C BCDIF, CMP ####[facility] [address] [place] [address] Abs [place] 0.89 k/uL High <0.87 [facility] Comment on above: Performed By: #### C BCDIF, CMP ####[facility] [address] [place] [address] Abs Neut 2.94 k/uL Normal 1.45-7.50 [facility] Comment on above: Performed By: #### C BCDIF, CMP ####[place] [address] Basophils/100 WBC (Bld) 0.3 % Normal [facility] Comment on above: Performed By: #### C BCDIF, CMP ####[place] [address] Eosinophils (Bld) [#/Vol] 0.16 10*3/uL Normal <0.46 [facility] Comment on above: Performed By: #### C BCDIF, CMP ####[place] [address] Eosinophils/100 WBC (Bld) 2.6 % Normal [facility] Comment on above: Performed By: #### C BCDIF, CMP ####[facility] [address] [place] [address] Erythrocyte distribution width (RBC) [Ratio] 13.5 % Normal 11.5-15.0 [facility] Comment on above: Performed By: #### C BCDIF, CMP ####[place] [address] Hematocrit (Bld) [Volume fraction] 40.5 % Normal 39.0-51.0 [facility] Comment on above: Performed By: #### C BCDIF, CMP ####[facility] [address] [place] [address] Hemoglobin (Bld) [Mass/Vol] 13.1 g/dL Normal 13.0-17.0 [facility] Comment on above: Performed By: #### C BCDIF, CMP ####[facility] [address] [place] [address] Lymphocytes (Bld) [#/Vol] 2.09 10*3/uL Normal 1.00-4.00 [facility] Comment on above: Performed By: #### C BCDIF, CMP ####[facility] [address] [place], [place] [phone] Lymphocytes/100 WBC (Bld) 34.3 % Normal [facility] Comment on above: Performed By: #### C BCDIF, CMP ####[place] [id number] MCH (RBC) [Entitic mass] 30.0 pG Normal 26.0-34.0 [facility] Comment on above: Performed By: #### C BCDIF, CMP ####[facility] [address] [place], [place] [phone] MCHC (RBC) [Mass/Vol] 32.3 g/dL Normal 30.5-36.0 [facility] Comment on above: Performed By: #### C BCDIF, CMP ####[place] [id number] MCV (RBC) [Entitic vol] 92.9 fL Normal 80.0-100.0 [facility] Comment on above: Performed By: #### C BCDIF, CMP ####[facility] [address] [place], [place] [phone] Monocytes/100 WBC (Bld) 14.6 % Normal [facility] Comment on above: Performed By: #### C BCDIF, CMP ####[address] Neutrophils/100 WBC (Bld) 48.2 % Normal [facility] Comment on above: Performed By: #### C BCDIF, CMP ####[place] [address] Platelet mean volume (Bld) [Entitic vol] 9.1 fL Normal 9.0-12.7 [facility] Comment on above: Performed By: #### C BCDIF, CMP ####[facility] [address]852 [place] [phone] Platelets (Bld) [#/Vol] 296 10*3/uL Normal 150-400 [facility] Comment on above: Performed By: #### C BCDIF, CMP ####[facility] [address]8425 [place] [phone] RBC (Bld) [#/Vol] 4.36 10*6/uL Normal 4.20-6.00 [facility] Comment on above: Performed By: #### C BCDIF, CMP ####[facility] Grkhqjwfip9813 [phone] WBC (Bld) [#/Vol] 6.10 10*3/uL Normal 3.70-11.00 [facility] Comment on above: Performed By: #### C BCDIF, CMP ####[facility] [address] [place] [phone] CNCOon 02-14-2018 [facility] Letter Text February 14, 2018 Maria De Jesus Farr Samira [address] [facility] [address] Dear Mr. Hogan, The nurses and staff of [facility] hope this letter finds you feeling well [...] free to contact me, Geneva Farooq RN ([phone]) or email me at, Additionally, you will [...] participation and thank you for choosing the [facility] for your health needs. Sincerely, Nurse Consumer Recruiter: Geneva Farooq RN ([phone]) [facility] Unit: 2 North Letter Text February 14, 2018 [facility] Medicine [address] [facility]/[place] [id number] Regarding: Maria De Jesus Hogan (: 1965) Dear Dr. Rasheed: A patient of your practice, Mraia De Jesus Hogan, was admitted on 02/13/2018 to [facility] under the services of the Department of Hospital Medicine, and is currently under the care of Dr. Arredondo. We look forward to collaborating with you regarding his care. If you have any questions or concerns, please call us in the Department of Hospital Medicine at [facility], at [phone]. Best Regards, Larry Burnett [facility] Letter Text February 14, 2018 [facility] Medicine [address] [facility] [id number] Re: Maria De Jesus Farr Samira Dear Dr. Rasheed: A patient of your practice, Maria De Jesus Hogan (: 1965) was treated at [facility] under the care of the [facility] Department of Hospital Medicine, and discharged on 02/14/2018. A transcribed discharge summary should be forthcoming promptly. If you need additional information or assistance, you may contact the Department of Hospital Medicine at [phone] during regular business hours, and we?ll be happy to assist you. Best Regards, Larry Lex [facility] Normal [facility] CNDSon 02-14-2018 [facility] HNO ID: [id number] Author: Uriel Arredondo MD Service: Hospital Medicine Author Type: Physician Type: Discharge Summaries Filed: 02/14/2018 11:01 AM Note Text: Attending Note I have personally performed a face to face assessment of the patient and have reviewed the PA/CATTLE ALLEY WORKER note. My laboy findings include: History is patient found on floor of long term with hemiplegia. Exam is inconsistent with no Babinski and alterations in his facial weakness with noxious stimuli prior similar episodes Assessment/Plan are reviewed with neurology and this seems to be conversion type reaction as the patient been scheduled for discharge from the long term but was not released because of his noncompliance he did not get the early release on the day prior to admission and was going to have to spend another month to long term. Evaluation with EEG MR I and CTA [...] after being found on floor of your long term cell. You were evaluated in the ER [...] medications on discharge. You can return to long term without any restrictions. You should follow up [...] THIS TIME: No pending results Discharge Disposition [facility] Activity When You Leave the Hospital Resume [...] to call for appointment?: Yes Lynda Waitekana [phone] [place] [address] 2 [facility] [address] PCP Requested Referral Additional Provider to Provider Information: Patient admitted for left sided weakness after being found on floor of long term cell. Has reported history of stroke abut [...] No new medications on discharge. Return to long term without any restrictions. Assessment AND Plan, all Hosp Problems Active Hospital Problems as of 02/14/2018 Noted - Resolved Hospital Conversion reaction 02/13/2018 - Present Current Assessment AND Plan Assessment: Had unspecified type of stoke about 10 years ago with minor residual left sided weakness since event. Patient having increased left sided weakness today with right sided headache. Found on floor of long term cell this morning. Neuro consulted in ED. [...] shows normal wave form. PLAN: -Return to long term -Follow up with PCP in 1 month -Follow up with [facility] with continued symptoms. Weakness of extremity 02/13/2018 - Present Current Assessment AND Plan Assessment: Had unspecified type of stoke about 10 years ago with minor residual left sided weakness since event. Patient having increased left sided weakness today with right sided headache. Found on floor of long term cell this morning. Neuro consulted in ED. Patient is not appropriate for TPA. CT of head and CT negative for acute intracranial process. Report from officer bedside states that patient has been seen several times at other facilities for similar complaint over the last several month during current incarceration. PLAN: -Discharge to long term History of TIA (transient ischemic attack) and stroke 02/13/2018 - Present Current Assessment AND Plan Assessment: Had unspecified type of stoke about 10 years ago with minor residual left sided weakness since event. Patient having increased left sided weakness today with right sided headache. Found on floor of long term cell this morning. Neuro consulted in ED. Patient is not appropriate for TPA. CT of head and CT negative for acute intracranial process. Report from officer bedside states that patient has been seen several times at other facilities for similar complaint over the last several month during current incarceration. MRI shows no acute or remote areas of infarct. PLAN: -Return to long term -Follow up with PCP in 1 month -Follow up with [facility] for counseling if symptom persist. BPH (benign prostatic hyperplasia) 02/13/2018 - Present Current Assessment AND Plan Assessment: Currently controlled PLAN: -Continue flomax Resolved Hospital Problems as of 02/14/2018 None LABS AND PROCEDURES PENDING AT DISCHARGE: None FOLLOW-UP APPOINTMENTS ALREADY SCHEDULED WITH A [facility] PROVIDER: No future appointments. ALLERGIES No Known [...] February 14, 2018 TIME: 9:28 AM Normal [facility] Comp Metabolic Panelon 02-14 Albumin [Mass/Vol] 3.9 g/dL Normal 3.9-4.9 [facility] Comment on above: Performed By: #### C BCJUSTOF CMP ####[facility] Sr[address]mkqvp5418 [place] [phone] ALP [Catalytic activity/Vol] 85 U/L Normal 38-113 [facility] Comment on above: Performed By: #### C MEHULF CMP ####[facility] Zspuqavapk9871 [place] [phone] ALT [Catalytic activity/Vol] 14 U/L Normal 10-54 [facility] Comment on above: Performed By: #### C BCSADAF CMP ####[facility] [address] [place] [address] Anion gap [Moles/Vol] 9 mmol/L Normal 9-18 [facility] Comment on above: Performed By: #### C BCDIF, CMP ####[facility] [address] [place] [address] AST [Catalytic activity/Vol] 14 U/L Normal 14-40 [facility] Comment on above: Performed By: #### C BCDIF, CMP ####[facility] [address] [place] [address] Bilirubin [Mass/Vol] 0.4 mg/dL Normal 0.2-1.3 [facility] Comment on above: Performed By: #### C BCDIF, CMP ####[facility] [address] [place] [address] Calcium [Mass/Vol] 9.0 mg/dL Normal 8.5-10.2 [facility] Comment on above: Performed By: #### C BCDIF, CMP ####[facility] [address] [place] [address] Chloride [Moles/Vol] 103 mmol/L Normal 97-105 [facility] Comment on above: Performed By: #### C BCDIF, CMP ####[facility] [address] [place] [address] CO2 [Moles/Vol] 30 mmol/L Normal 22-30 [facility] Comment on above: Performed By: #### C BCDIF, CMP ####[facility] M[address] [place] [address] Creatinine [Mass/Vol] 0.81 mg/dL Normal 0.73-1.22 [facility] Comment on above: Performed By: #### C BCDIF, CMP ####[facility] [address] [place] [address] eGFR- Amer. >60 Normal [facility] Comment on above: Performed By: #### C BCDIF, CMP ####[facility] [address] [place], [place] [phone] GFR/1.73 sq M predicted among non-blacks MDRD (S/P/Bld) [Vol rate/Area] mL/min/{1.73_m2} Normal [facility] Comment on above: Result Comment: eGFR (Estimated [...] GFR. Performed By: #### C BCJUSTOF, CMP ####[facility] Wusdevxupb8269 [phone] Glucose [Mass/Vol] 81 mg/dL Normal 74-99 [facility] Comment on above: Result Comment: The [place] Diabetes Association (ADA) provides guidance for cutoff [...] Standards of Medical Care in Diabetes 2016, [place] Diabetes Association. Diabetes Care. 2016.39(Suppl 1). Performed By: #### C BCDIF, CMP ####[facility] Ydjtkcgscm1595 [phone] Potassium [Moles/Vol] 4.3 mmol/L Normal 3.7-5.1 [facility] Comment on above: Performed By: #### C BCDIF, CMP ####[facility] Kklxusdyfy5093 [place] [phone] Protein [Mass/Vol] 6.1 g/dL Low 6.3-8.0 [facility] Comment on above: Performed By: #### C BCDIF, CMP ####[facility] Mptwkjgeej0795 [phone] Sodium [Moles/Vol] 142 mmol/L Normal 136-144 [facility] Comment on above: Performed By: #### C BCDIF, CMP ####[facility] Iuuiabycdr0382 [phone] Urea nitrogen [Mass/Vol] 12 mg/dL Normal 9-24 [facility] Comment on above: Performed By: #### C BCDIF, CMP ####[facility] Iqong[address]atgo0840 [place] [phone] Lipid Panel, [place] 018 Cholesterol [Mass/Vol] 176 mg/dL Normal <200 [facility] Comment on above: Result Comment: <200 mg/dL, Desirable 200-239 mg/dL, Borderline high >239 mg/dL, High Performed By: #### L IPB ####[place] [phone] Cholesterol in HDL [Mass/Vol] 39 mg/dL Low >39 [facility] Comment on above: Result Comment: 40-5 9 mg/dL, Acceptable >59 mg/dL, High: Negative risk factor for coronary heart disease <40 mg/dL, Low: Positive risk factor for coronary heart disease Performed By: #### L IPB ####[place] [phone] Cholesterol in LDL [Mass/Vol] 126 mg/dL High <100 [facility] Comment on above: Result Comment: <100 mg/dL, Optimal 100-129 mg/dL, Near optimal/above optimal 130-159 mg/dL, Borderline high 160-189 mg/dL, High >189 mg/dL, Very high Secondary prevention optimal LDL Cholesterol levels are recommended to be < 70 mg/dL Performed By: #### L IPB ####[place] [id number] [place] [phone] Fasting Time Unknown Normal [facility] Comment on above: Performed By: #### L IPB ####[address] [phone] LDL:HDL Ratio 3.23 High <2.54 [facility] Comment on above: Result Comment: Refe rence: 1. National Cholesterol Education Program ATP III Guideline At-A-Glance Quick Desk Reference: National Heart, Lung, and Blood [place]. National Institutes of Health. 2001: NIH Publication No. 01-3305. 2. An International Atherosclerosis Society position paper: global recommendations for the management of dyslipidemia: executive summary, Atherosclerosis. 2014: 232(2):410-413. Performed By: #### L IPB ####[address] [phone] Non HDL Cholesterol 137 mg/dL High <130 [facility] Comment on above: Result Comment: <130 mg/dL, Optimal 130-159 mg/dL, Near optimal/above optimal 160-189 mg/dL, Borderline high 190-219 mg/dL, High >219 mg/dL, Very high Secondary prevention optimal non HDL Cholesterol levels are recommended to be < 100 mg/dL Performed By: #### L IPB ####[address] [phone] TC:HDL Ratio 4.51 Normal <5.10 [facility] Comment on above: Performed By: #### L IPB ####[address] [phone] Triglyceride [Mass/Vol] 53 mg/dL Normal <150 M [facility] Comment on above: Result Comment: <150 mg/dL, Normal 150-199 mg/dL, Borderline high 200-499 mg/dL, High >499 mg/dL, Very high Performed By: #### L IPB ####[address] [phone] VLDL Cholesterol 11 mg/dL Normal <30 [facility] Comment on above: Performed By: #### L IPB ####[address] [phone] NURSING PROGon 02-14-2018 NURSING PROG HNO ID: [id number] Author: Carol CaldwellRn) JYA Aly Service: (none) Author Type: Registered Nurse Type: Nursing Progress Note Filed: 02/14/2018 10:00 AM Note Text: Nursing Progress Note Patient Name: Maria De Jesus Hogan Patient Location: [id number] Daily Note:02/14/18 0741 EEG being completed. IVF infusing as ordered. Bedside report given from JAY Guardado. 0900 Neuro completed, see charting. NIH completed, results in a 2. Patient denies SAINZ or discomfort at this time. No other requests at this time. Side rails x 3 up, call light and possessions within reach. This note was completed by: Carol Aly RN [facility] NURSING PROG HNO ID: [id number] Author: Debby (Rn) JAY Saavedra Service: (none) Author Type: Registered Nurse Type: Nursing Progress Note Filed: 02/14/2018 5:37 AM Note Text: Nursing Progress Note Patient Name: Maria De Jesus Hogan Patient Location: [id number] Daily Note: 1944- received report on pt. Pt off floor for cervical MRI. 2024- pt back to floor. Assessment completed. Numbness and tingling on the Left side of his body- also experiencing a 7/10 SAINZ. SR on tele. Vidalia at bedside- pt's ankles shackled. 2035- night-time [...] was completed by: Debby Saavedra RN Normal [facility] APTTon 02-13-2018 aPTT Coag (Bld) [Time] 26.9 s Normal 23.0-32.4 [facility] Comment on above: Result Comment: Unfr [...] laboratory APTT reagent in use throughout the [facility]. Performed By: #### C BC, PT, PTT, BMP #### [facility] [address] [place] [address] Basic Metabolic Panlon 02-13 Anion gap [Moles/Vol] 10 mmol/L Normal 9-18 [facility] Comment on above: Performed By: #### C BC, PT, PTT, BMP #### [facility] [address] [place] [address] Calcium [Mass/Vol] 9.6 mg/dL Normal 8.5-10.2 [facility] Comment on above: Performed By: #### C BC, PT, PTT, BMP #### [facility] [address] [place] [address] Chloride [Moles/Vol] 101 mmol/L Normal 97-105 [facility] Comment on above: Performed By: #### C BC, PT, PTT, BMP #### [facility] [address] [place], [place] [address] CO2 [Moles/Vol] 30 mmol/L Normal 22-30 [facility] Comment on above: Performed By: #### C BC, PT, PTT, BMP #### [facility] [address] [place] [address] Creatinine [Mass/Vol] 0.81 mg/dL Normal 0.73-1.22 [facility] Comment on above: Performed By: #### C BC, PT, PTT, BMP #### [facility] [address] [facility] [phone] eGFR- Amer. >60 Normal [facility] Comment on above: Performed By: #### C BC, PT, PTT, BMP #### [facility] [address] [place] [address] GFR/1.73 sq M predicted among non-blacks MDRD (S/P/Bld) [Vol rate/Area] mL/min/{1.73_m2} Normal [facility] Comment on above: Result Comment: eGFR (Estimated [...] #### C BC, PT, PTT, BMP #### [facility] [address] [place] [address] Glucose [Mass/Vol] 102 mg/dL High 74-99 [facility] Comment on above: Result Comment: The [place] Diabetes Association (ADA) provides guidance for cutoff [...] Standards of Medical Care in Diabetes 2016, [place] Diabetes Association. Diabetes Care. 2016.39(Suppl 1). Performed By: #### C BC, PT, PTT, BMP #### [facility] [address] [facility] [phone] Potassium [Moles/Vol] 3.8 mmol/L Normal 3.7-5.1 [facility] Comment on above: Performed By: #### C BC, PT, PTT, BMP #### [facility] [address] [facility] [phone] Sodium [Moles/Vol] 141 mmol/L Normal 136-144 [facility] Comment on above: Performed By: #### C BC, PT, PTT, BMP #### [facility] [address] [facility] [phone] Urea nitrogen [Mass/Vol] 13 mg/dL Normal 9-24 [facility] Comment on above: Performed By: #### C BC, PT, PTT, BMP #### [facility] [address] [place] [phone] CBCon 02-13-2018 Erythrocyte distribution width (RBC) [Ratio] 13.3 % Normal 11.5-15.0 [facility] Comment on above: Performed By: #### C BC, PT, PTT, BMP #### [facility] [address] [place], [place] [address] Hematocrit (Bld) [Volume fraction] 44.7 % Normal 39.0-51.0 [facility] Comment on above: Performed By: #### C BC, PT, PTT, BMP #### [facility] [address] [place] [phone] Hemoglobin (Bld) [Mass/Vol] 14.9 g/dL Normal 13.0-17.0 [facility] Comment on above: Performed By: #### C BC, PT, PTT, BMP #### [facility] [address] [facility] [phone] MCH (RBC) [Entitic mass] 30.3 pG Normal 26.0-34.0 [facility] Comment on above: Performed By: #### C BC, PT, PTT, BMP #### [facility] [address] [facility] [phone] MCHC (RBC) [Mass/Vol] 33.3 g/dL Normal 30.5-36.0 [facility] Comment on above: Performed By: #### C BC, PT, PTT, BMP #### [facility] [address] [facility] [phone] MCV (RBC) [Entitic vol] 91.0 fL Normal 80.0-100.0 M [facility] Comment on above: Performed By: #### C BC, PT, PTT, BMP #### [facility] [address] [facility] [phone] Platelet mean volume (Bld) [Entitic vol] 8.4 fL Low 9.0-12.7 [facility] Comment on above: Performed By: #### C BC, PT, PTT, BMP #### [facility] [address] [facility] [phone] Platelets (Bld) [#/Vol] 302 10*3/uL Normal 150-400 [facility] Comment on above: Performed By: #### C BC, PT, PTT, BMP #### [facility] [address] [facility] [phone] RBC (Bld) [#/Vol] 4.91 10*6/uL Normal 4.20-6.00 [facility] Comment on above: Performed By: #### C BC, PT, PTT, BMP #### [facility] [address] [facility] [phone] WBC (Bld) [#/Vol] 6.07 10*3/uL Normal 3.70-11.00 [facility] Comment on above: Performed By: #### C BC, PT, PTT, BMP #### [facility] [address] [facility] [phone] CNCOon 02-13-2018 CN[facility] Letter Text February 13, 2018 Department of Hospital Medicine [address] [place] [address] Regarding: Maria De Jesus Hogan (: 1965) Dear Dr. Rasheed: A patient of your practice, Maria De Jesus Hogan, was admitted on 02/13/2018 to [facility] under the services of the Department of Hospital Medicine, and is currently under the care of Dr. Arredondo. We look forward to collaborating with you regarding his care. If you have any questions or concerns, please call us in the Department of Hospital Medicine at [facility], at [phone]. Best Regards, Larry Borja Normal [facility] CONSULTon 02-13-2018 CONSULT HNO ID: [id number] Author: Lyric Delgado Service: Neurology General Author [...] sensory loss. Patient presented this AM from [facility]. Last known well last night [...] at baseline. Reporting headache on the right gnosticist that alternates between sharp and dull. Sensitive [...] 5/5 Biceps 5-/5 Triceps 5/5 Triceps 5-/5 Enterprise Systems Administrator 5/5 Enterprise Systems Administrator 4/5 WE 5/5 WE 4/5 RIGHT LE: [...] cervical spine ---> EEG Lyric Delgado M.D. [facility] [place] Department of [facility] Pager: [phone] February 13, [address] [facility] [address] BRAIN WO IVCONon 02-14-20 CT BRAIN WO IVCON * * *Final Report* * * DATE OF EXAM: Feb 13 2018 7:02AM [facility] 0504 - CT BRAIN WO IVCON / [...] Physician: EVELYN FARAH on 02/13/2018 at 07:08. Special Events Manager: GRANT Transcribe Date/Time: Feb 13 2018 7:08A Dictated by : RENATA ACEVEDO MD This examination was interpreted and the report reviewed and electronically signed by: RENATA ACEVEDO MD on Feb 13 2018 7:12AM EST [id number] [facility] CTA HEAD W IVCONon 8 CTA HEAD W IVCON * * *Final Report* * * DATE OF EXAM: Feb 13 2018 7:14AM [facility] 0022 - CTA HEAD W IVCON / [...] independent risk factor for atherosclerotic vascular disease. Special Events Manager: PSCB Transcribe Date/Time: Feb 13 2018 7:25A Dictated by : RENATA ACEVEDO MD This examination was interpreted and the report reviewed and electronically signed by: RENATA ACEVEDO MD on Feb 13 2018 7:33AM EST [id number] [facility] CTA NECK W IVCONon 8 CTA NECK W IVCON * * *Final Report* * * DATE OF EXAM: Feb 13 2018 7:14AM [facility] 0024 - CTA NECK W IVCON / [...] independent risk factor for atherosclerotic vascular disease. Special Events Manager: GRANT Transcribe Date/Time: Feb 13 2018 7:25A Dictated by : RENATA ACEVEDO MD This examination was interpreted and the report reviewed and electronically signed by: RENATA ACEVEDO MD on Feb 13 2018 7:33AM EST [id number] [facility] ED NOTEon 02-13-2018 ED NOTE HNO ID: [id number] Author: Catalino CaldwellRnCarissa Cabrera RN Service: (none) Author Type: Registered Nurse Type: ED Notes Filed: 02/13/2018 7:30 AM Note Text: Assumed patient care at this time. [facility] ED NOTE HNO ID: [id number] Author: Claudia Harp RN Service: (none) Author Type: Registered Nurse Type: ED Notes Filed: 02/13/2018 7:13 AM Note Text: Patient returned to the Emergency Department. [facility] ED NOTE HNO ID: [id number] Author: Claudia CaldwellRn) JAY Harp Service: (none) Author Type: Registered Nurse Type: ED Notes Filed: 02/13/2018 6:56 AM Note Text: Patient transported to CT scan with monitor, Nurse and Tech. [facility] ED NOTE HNO ID: [id number] Author: Claudia Harp RN Service: (none) Author Type: Registered Nurse Type: ED Notes Filed: 02/13/2018 6:56 AM Note Text: Pt presents to the ED with CC of stroke like symptoms, unknown last well, was found on the ground at 0526 per nursing staff at long term. Pt has left side weakness [facility] ED NOTE HNO ID: [id number] Author: Claudia Samuel) JAY Harp Service: (none) Author Type: Registered Nurse Type: ED Notes Filed: 02/13/2018 6:59 AM Note Text: Pt placed on network infrastructure architect and continuous pulsox [facility] ED NOTE HNO ID: [id number] Author: Claudia Harp RN Service: (none) Author Type: Registered Nurse Type: ED Notes Filed: 02/13/2018 6:51 AM Note Text: Bed: ED-02 Expected date: Expected time: Means of arrival: Comments: LST 5 [facility] ED PROV NOTEon 02-13-2018 ED PROV NOTE HNO ID: [id number] Author: Zuly Serna DO Service: Emergency Medicine Author Type: Physician Type: ED Provider Notes Filed: 02/13/2018 8:02 AM Note Text: ED Provider Note Patient Name: Maria De Jesus Hogan SERVICE DATE: 02/13/18 History Patient presents with: Potential Stroke Symptoms 52-year-old male past medical history of reported stroke 10 years ago presented with left-sided deficits, remote tobacco abuse presents from the [facility] long term with left-sided weakness and sensory deficits. Patient [...] signs reviewed Triage note reviewed Placed on network infrastructure architect Medications administered aspirin Consultation obtained stroke neurologist [...] MRI imaging. Administered aspirin. Admit to medicine. [facility] The patient was ADMITTED TO: Regular nursing floor. Case discussed with admitting physician, Dr. Arredondo. Condition at time of disposition: stable SIGNATURE: Zuly Serna DO Critical Care I spent a total of 30 minutes of critical care time in the evaluation and management of this patient. 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 The patient received ASA and Consultation by stroke neurologist during the time that critical care was provided. Critical care time excludes separately billed procedures. DO Zuly Mckeon, DO 02/13/18 0801 Zuly Serna, DO 02/13/18 0802 [facility] HISTORY PHYSICALon HISTORY PHYSICAL HNO ID: [id number] Author: Uriel Arredondo MD Service: Hospital Medicine Author Type: Physician Type: HANDP Filed: 02/13/2018 4:38 PM Note Text: Attending Note I have personally performed a face to face assessment of the patient and have reviewed the PA/CATTLE ALLEY WORKER note. My laboy findings include: History is patient coming from long term with left sided weakness there is some [...] AND WEEKEND COVERAGE: Nights: Please contact pager [phone]. SUBJECTIVE Chief Complaint: Left sided weakness, CVA HPI: 52year-old male past medical history of reported stroke 10 years ago presented with left-sided deficits, remote tobacco abuse presents from the [facility] long term with left-sided weakness and sensory deficits. Patient [...] right sided headache. Found on floor of long term cell this morning. Neuro consulted in ED. [...] right sided headache. Found on floor of long term cell this morning. Neuro consulted in ED. [...] right sided headache. Found on floor of long term cell this morning. Neuro consulted in ED. [...] 1957 02/13/18 1000 vte pharmacologic prophylaxis contraindicated (mo,oh) 02/13/18 1000 pneumatic compression stockings (mo,ms) VTE Prophylaxis: VTE prophylaxis appropriate SIGNATURE: Nilay Baker APRN.CNP PATIENT NAME: Maria De Jesus Hogan DATE: February 13, 2018 TIME: 10:05 AM PAGER/CONTACT #: [phone] [facility] Hemoglobin A1con 02-13-2018 HbA1c (Bld) [Mass fraction] 108 mg/dL [facility] Comment on above: Result Comment: eAG: (Estimated average glucose) is a calculated value from HgbA1c and is surgical sales representative of the average blood glucose level in the last 2-3 month period. Performed By: #### P T, MG1 ####[facility] [address] [place], [place] [phone]#### HBA1C ####[facility] [address] [place], [place] [phone] HbA1c (Bld) [Mass fraction] 5.4 % Normal 4.3-5.6 [facility] Comment on above: Result Comment: Amer ican Diabetes Association guidelines indicate that patients with HgbA1c in the range 5.7-6.4% are at increased risk for development of diabetes, and intervention by lifestyle modification may be beneficial. HgbA1c greater or equal to 6.5% is considered diagnostic of diabetes. Performed By: #### P T, MG1 ####[facility] [address] [place] [phone]#### HBA1C ####[facility] [address] [place], [place] [phone] MRI BRAIN WO IVCONon 11-15-2 018 MRI BRAIN WO IVCON * * *Final Report* * * DATE OF EXAM: Feb 13 2018 1:03PM [facility] 0294 - MRI BRAIN WO IVCON / [...] No acute intracranial findings. No acute infarction. Special Events Manager: GRANT Transcribe Date/Time: Feb 13 2018 2:12P Dictated by : ZULY ANTONY MD This examination was interpreted and the report reviewed and electronically signed by: ZULY ANTONY MD on Feb 13 2018 2:17PM EST [id number] [facility] MRI CERVICAL SPINE WO IVCONo n 02-13-2018 MRI CERVICAL SPINE WO IVCON * * *Final Report* * * DATE OF EXAM: Feb 13 2018 8:15PM [facility] 0297 - MRI CERVICAL SPINE WO IVCON [...] vertebrae with counting from the craniocervical junction. Special Events Manager: GRANT Transcribe Date/Time: Feb 13 2018 8:32P Dictated by : UMM YEN MD This examination was interpreted and the report reviewed and electronically signed by: UMM YEN MD on Feb 13 2018 8:34PM EST [id number] Normal [facility] Magnesiumon 02-13-2018 Magnesium [Mass/Vol] 2.0 mg/dL Normal 1.7-2.3 [facility] Comment on above: Performed By: #### P T, MG1 ####[facility] [address] [place] [phone]#### HBA1C ####[facility] [address] [place], [place] [phone] NURSING PROGon 02-13-2018 NURSING PROG HNO ID: [id number] Author: Cata (Rn) JAY Prather Service: (none) Author Type: Registered Nurse Type: Nursing Progress Note Filed: 02/13/2018 6:41 PM Note Text: Nursing Progress Note Patient Name: Maria De Jesus Hogan [facility]0242/[id number] Transfer Note: Patient transferred into room/unit 242. Pt. C/o 10/10 headache and L side weakness head to toes. Also, pt. C/o decreased sensation to the L side. Actions taken:Pt. oriented to room and call light. Vidalia at the bedside. Will continue to monitor and check with patient. 1100: Pt. Still c/o L side weakness, numbness, tingling and headache. SR on telemetry. Tylenol given per MAR order. Vidalia at the bedside. Will continue to monitor and check with patient. 1300: Pt. Back from MRI. Neurological assessment unchanged, headache improved. SR on tele. Call light in reach, bed in the lowest position. Vidalia at the bedside. Will continue to monitor and check with patient. 1500: Pt. Stating L side numbness improved, but L side weakness unchanged. Pt. Ate lunch. Vidalia at the bedside. Will continue to monitor and check with patient. 1700: Neurological assessment unchanged, pt. Continues to c/o L side weakness. SR on telemetry. VSS stable. Vidalia at the bedside. Will continue to monitor and check with patient. This note was completed by: Cata Prather RN [facility] PROGRESSon 02-13-2018 PROGRESS HNO ID: [id number] Author: Garland Huizar Service: (none) Author Type: Physician Type: Progress Notes Filed: 02/13/2018 8:52 AM Note Text: TELESTROKE DOCUMENTATION Name: Maria De Jesus Hogan : 1965 Site: [place] Dr. Serna Last Known Well (Date/Time): 02/12/182199 [...] and management Thank you for contacting the [facility]. I appreciate the opportunity for allowing me to participate in Maria De Jesus Hogan's care. Please feel free to contact me and/or the [facility] at any time if you have any further questions or need additional assistance. Garland Huizar MD February 13, 2018 8:51 AM Normal [facility] Protimeon 02-13-2018 PT Coag (PPP) [Time] 10.7 s Normal 9.7-13.0 [facility] Comment on above: Performed By: #### Tori T, MG1 ####[facility] [address] [place], [place] [phone]#### HBA1C ####[phone] Performed By: #### C BC, PT, PTT, BMP #### [facility] [address] [place] [phone] PT Coag (PPP) [Time] 1.1 s Normal 0.9-1.3 [facility] Comment on above: Result Comment: Lyssa min K Antagonist (VKA) Therapeutic Range: INR 2 to 3 (Target INR of 2.5) Note: For patients treated with VKA drugs, such as warfarin, the [place] College [employer]icians 2012 Guideline recommends [...] Chest 2012, 141:7S-47S Amelia RA, et al. [facility] 2017, 70: 252-289 Performed By: #### Tori T, MG1 ####[facility] [address] [place] [address]#### HBA1C ####[place] [id number] [place] [phone] Performed By: #### C BC, PT, PTT, BMP #### [facility] [address] [place] [phone] THERAPY NTon 02-13-2018 THERAPY NT HNO ID: [id number] Author: Abida (Sketch Liner) Maribell Hayes CCC/ASSISTANT QUALITY MANAGER Service: Speech/Swallow Author Type: Speech Language Pathologist Type: Therapy (PT/OT/Speech/Resp) Filed: 02/13/2018 1:54 PM Note Text: Speech Therapy Speech Evaluation, Clinical Swallow Evaluation SERVICE DATE: 02/13/2018 SERVICE TIME: 1325 to 1350 ROOM: [place] [address] Diet Recommendations: Regular Consistency;Thin liquids Results and [...] Skilled Need Interventions Provided: Speech Language Eval (49003);Clinical Swallow Evaluation (11591) $ Speech Language Eval (65113) Billed Units: 1 unit Expressive / Receptive Language assessment is completed to determine patient's current communication skills within the acute care setting and potential need for therapeutic intervention. $ Clinical Swallow Evaluation (49120) Billed Units: 1 unit Clinical Swallowing assessment [...] CVA / Left sided weakness - Per GAUGER DELIVERY note: found by staff at 5:30 this [...] DATE: February 13, 2018 TIME: 1:51 PM [facility] THERAPY NT HNO ID: [id number] Author: Abida (Sketch Liner) Maribell Hayes CCC/MAVIS Service: Speech/Swallow Author Type: Speech Language Pathologist Type: Therapy (PT/OT/Speech/Resp) Filed: 02/13/2018 12:13 PM Note Text: SPEECH THERAPY MISSED VISIT SERVICE DATE: 02/13/2018 SERVICE TIME: 1200 to 1200 ROOM: [place] [address] Attempted Speech Evaluation;Clinical Swallow Evaluation. Patient not seen due to Test/Procedure. Spoke with nursing whom indicated that the patient was off the floor for a procedure. Regular diet has been ordered. This department will re-attempt assessment as patient becomes available and/or as schedule allows. SIGNATURE: WOODY Serrano PATIENT NAME: Maria De Jesus Hogan DATE: February 13, 2018 TIME: 12:12 PM [facility] Troponin Ton 02-13-2018 Troponin T.cardiac [Mass/Vol] ug/L Normal 0.000-0.02 9 [facility] Comment on above: Performed By: #### T NT ####[facility] [address] [place], [place] [phone] 12 Lead Electrocardiogramon 07-26-2017 12 Lead Electrocardiogram [facility] [address] [place] [address] [phone] Lead EKG04/ 1932MR#: [id number] Acct: [id number]: MARIA DE JESUS HOGAN Rep #: [id number]: [...] ECGs availableConfirmed by BEN LUNA MD ([id number]), health editor SIMIN RENO ([id number]) on 07/26/2017 1:14:57 PMReferred By: NEETA Confirmed By:EBN LUNA MD07/26/17 1315Date Ben Luna MDCC: Salma Blanco; OUT OF TOWN DOCTOR Signed Normal [facility] Discharge Instructionon 07-01 Discharge Instruction [facility] [address] [facility] [place], [place] [address]Rsoqsqvcrgoa for Home/Discharge Ucdbetjjjrzs25/21/18 0806MR#: [id number] Acct: [id number]: MARIA DE JESUS HOGAN Rep #: [id number]: [...] 100 mg PO DAILYCM #30 tabPrimary Care Physician:[facility] Doctor,Out of [Primary Care Provider] -Please follow up with your Primary Care Physician in: 2 weeks.07/20/17 0807 Date Salma Blanco MDCC: OUT OF TOWN DOCTOR Normal [facility] Discharge Summaryon 07-21-19 Discharge Summary [facility] [address] [place], [place] [address]Cgwisdtlz Vbcaxib53/21/18 1115MR#: [id number] Acct: [id number]: MARIA DE JESUS HOGAN Rep #: [id number]: 1965 51 From: Salma Blanco MDPCP: OUT OF TOWN DOCTOR Status: DIS IN YLocation: MS2 [id number] Date and DiagnosisDate of Admission: 07/17/17Date of [...] 2 weeks [facility] [...] apply): None applicableCode VisitInpatient E AND M: 01412 Disch Hosp07/20/17 1119 Date Salma Blanco [facility] Signature (if applicable): Date CC: Salma Blanco; OUT OF TOWN DOCTOR; pcp Signed Normal [facility] Emergency Department Summary on 07-18-2017 Emergency Department Summary [facility] [address] [place], [place] [address]Ozqwfpfmj Department Qgiuzor47/18/18 1553#: [id number] Acct: [id number]: MARIA DE JESUS HOGAN Rep #: [id number]: 1965 51 From: Jose Bedolla MDPCP: OUT OF TOWN DOCTOR Status: ADM IN- ER Visit SummaryDate of Service: 07/17/17Chief Complaint: History of alcoholism requesting detoxHistory of Present Illness: The patient is a 51 M year history of alcoholism. Patient statesthat [facility] [place]. And he is requesting detox again. Hedrinks [...] He is requesting detox. [facility] for possible admission and treatment for detox.Treatment Plan: I spoke with Ceci from [facility] and the hospitalist and the patient is beingadmitted for detox.Disposition: AdmissionImpression: Acute on chronic alcoholismRequesting alcohol detoxThis note was generated with [employer] dictation software. It may contain incorrect words,spelling, and punctuation that were not noted in review of the chart prior to signingED Disposition- Plan for ED Patient:Chief Complaint: ETOH IntoxReferrals:[facility] Doctor,Out of [Primary Care Provider] -What to do if you have ProblemsFor any increased pain, shortness of breath, bleeding, nausea or vomiting, chest pain, or anyunexpected problems, contact your Primary Care Provider. Call [facility] ([phone])or report to the closest Emergency Room.Call 911 if necessary.07/18/17 0014 Date Jose Bedolla [facility] Signature (If Indicated): Date CC: OUT OF [facility] DOCTOR Normal [facility] Alcohol, Blood (Medical)-Ser umon 07-17-2017 SERUM ETOH 393.0 mg/dL Critically high [facility] Comment on above: Result Comment: Crit ical Result(s) Called at: 18:29:58 07/17/2017 by:Arnold [facility]:whole blood ethanol ratio is approximately 1.14and varies slightly with hematocrit.Medical Alcohol reference interval and critical value innon-tolerant individuals; 50 - 100 Impairment 100 Intoxication 100 - 250 Severe Poisoning 250 - 400 Deep/possible fatal coma Performed By: #### L 100.0100 ####[facility] [address] [place], [place], [phone] CBC W/Diff, Automatedon 06-30 Absolute Neut 2.0 X10 3/uL Normal 2.0-7.7 [facility] Comment on above: Performed By: #### L 100.0100 ####[facility] [address] [place], [address] Basophils/100 WBC Auto (Bld) 0.8 % Normal 0-1 [facility] Comment on above: Performed By: #### L 100.0100 ####[facility] [address] [place], [address] Eosinophils/100 leukocytes 0.3 % Normal 0-5 [facility] Comment on above: Performed By: #### L 100.0100 ####[facility] [address] [place], [address] Erythrocyte distribution width Auto Ratio (RBC) 13.1 % Normal 11.6-14.6 [facility] Comment on above: Performed By: #### L 100.0100 ####[facility] [address] [place], [address] Erythrocytes (RBC) 4.94 M/mm3 Normal 4.6-6.[address] [facility] Comment on above: Performed By: #### L 100.0100 ####[facility] [address] [place], [address] Hematocrit (HCT) 46.5 % Normal 40-54 [facility] Comment on above: Performed By: #### L 100.0100 ####[facility] [address] [place], [address] Hemoglobin mass conc (Bld) 16.4 g/dL Normal 13.0-16.5 [facility] Comment on above: Performed By: #### L 100.0100 ####[facility] [address] [place], [address] IM GRAN % 0.300 % Normal 0.0-0.9 [facility] Comment on above: Result Comment: IG% - Immature Granulocytes (promyelocytes, myelocytes andmetamyelocytes) > 1% indicates that a LEFT SHIFT is Present. Performed By: #### L 100.0100 ####[facility] [address] [place], [address] Lymphocytes 1.49 X10 3/ul Normal 0.83-4.51 [facility] Comment on above: Performed By: #### L 100.0100 ####[facility] [address] [place], [address] Lymphocytes/100 leukocytes 37.7 % Normal 19-41 [facility] Comment on above: Performed By: #### L 100.0100 ####[facility] [address] [place], [address] MCH 33.2 pg High 27.0-32.0 [facility] Comment on above: Performed By: #### L 100.0100 ####[facility] [address] [place], [address] MCHC mass conc (RBC) 35.3 g/gl Normal 32-36 [facility] Comment on above: Performed By: #### L 100.0100 ####[facility] [address] [place], [address] MCV 94.1 fL High 80-94 [facility] Comment on above: Performed By: #### L 100.0100 ####[facility] [address] [place], [address] Monocytes/100 leukocytes 11.4 % High 0-10 [facility] Comment on above: Performed By: #### L 100.0100 ####[facility] [address] [place], [address] Neutrophils/100 WBC Auto (Bld) 49.5 % Normal 47-70 [facility] Comment on above: Performed By: #### L 100.0100 ####[facility] [address] [place], [address] Platelet mean volume (PMV) 9.1 fL Normal 6.2-12.0 [facility] Comment on above: Performed By: #### L 100.0100 ####[facility] [address] [place], [address] Platelets 147 10*3/uL Low 150-450 [facility] Comment on above: Performed By: #### L 100.0100 ####[facility] [address] [place], [address] RDW SD 44.2 fl High 35.1-43.9 [facility] Comment on above: Performed By: #### L 100.0100 ####[facility] [address] [place], [address] WBC (Leukocytes) 4.0 10*3/uL Low 4.4-11.0 [facility] Comment on above: Performed By: #### L 100.0100 ####[facility] [address] [place], [address] Comprehensive Metabolic Prof [facility] 07-17-2017 A/G 1.0 RATIO Normal 0.9-2.4 [facility] Comment on above: Performed By: #### L 100.0100 ####[facility] [address] [place], [address] Alanine aminotransferase (ALT) 143 U/L High 16-61 [facility] Comment on above: Performed By: #### L 100.0100 ####[facility] [address] [place], [address] Albumin 3.7 g/dL Normal 3.2-5.0 [facility] Comment on above: Performed By: #### L 100.0100 ####[facility] [address] [place], [address] Alkaline phosphatase (ALP) 124 U/L High 45-117 [facility] Comment on above: Performed By: #### L 100.0100 ####[facility] [address] [place], [address] Aspartate aminotransferase (AST) 157 U/L High 15-37 [facility] Comment on above: Performed By: #### L 100.0100 ####[facility] [address] [place], [address] Bilirubin (total) 0.40 mg/dL Normal 0.20-1.00 [facility] Comment on above: Performed By: #### L 100.0100 ####[facility] [address] [place], [address] BUN (urea nitrogen) 9.0 RATIO Low 10-20 [facility] Comment on above: Performed By: #### L 100.0100 ####[facility] [address] [place], [address] Calcium 8.0 mg/dL Low 8.5-10.1 [facility] Comment on above: Performed By: #### L 100.0100 ####[facility] [address] [place], [address] Chloride 102 mmol/L Normal 98-107 [facility] Comment on above: Performed By: #### L 100.0100 ####[facility] [address] [place], [address] CO2 26.0 mmol/L Normal 21.0-32.0 [facility] Comment on above: Performed By: #### L 100.0100 ####[facility] [address] [place], [address] Creatinine 0.78 mg/dL Normal 0.70-1.30 [facility] Comment on above: Result Comment: The validity of the calculated GFR AND GFRAA in patients over70 years has not been determined. Clinical correlation isessential. Performed By: #### L 100.0100 ####[facility] [address] [place], [address] eGFR (non-black) 113 mL/min/{1.73_m2} Normal >60 [facility] Comment on above: Result Comment: Non- GFR Calc Performed By: #### L 100.0100 ####[facility] [address] [place], [address] eGFR (non-black) 137 mL/min/{1.73_m2} Normal >60 [facility] Comment on above: Result Comment: Afri can Brazilian GFR Calc Performed By: #### L 100.0100 ####[facility] [address] [place], [address] Estimated CRCL 122.01 ml/min Normal [facility] Comment on above: Performed By: #### L 100.0100 ####[facility] [address] [place], [address] GAP 11 Normal 5-15 [facility] Comment on above: Performed By: #### L 100.0100 ####[facility] [address] [place], [address] Globulin 3.7 g/dL Normal 2.2-4.2 [facility] Comment on above: Performed By: #### L 100.0100 ####[facility] [address] [place], [address] Glucose mass conc 71 mg/dL Low 74-106 [facility] Comment on above: Result Comment: Sixto rodriguez note revised GLUCOSE reference range eucmdneds73/02/2018. Performed By: #### L 100.0100 ####[facility] [address] [place], [address] Potassium molar conc 3.8 mmol/L Normal 3.5-5.1 [facility] Comment on above: Performed By: #### L 100.0100 ####[facility] [address] [place], [address] Sodium 139 mmol/L Normal 136-145 [facility] Comment on above: Performed By: #### L 100.0100 ####[facility] [address] [place], [address] T PROT 7.4 g/dL Normal 6.4-8.2 [facility] Comment on above: Performed By: #### L 100.0100 ####[facility] [address] [place], [address] Urea nitrogen 7 mg/dL Normal 7-18 [facility] Comment on above: Performed By: #### L 100.0100 ####[facility] [address] [place], [address] History and Physical Examon 07-17-2017 [facility] and Physical [facility] [address]zaiqt[address] [facility] [place], [place] [address]Foboors and Yieieltd32/18/18 1632#: [id number] Acct: [id number]: MARIA DE JESUS HOGAN Rep #: [id number]: 1965 51 From: Salma Blanco MDPCP: OUT OF TOWN DOCTOR Status: ADM IN YLocation: MS2 [id number] List(1) Alcohol withdrawalStatus: Acute(2) Alcohol abuseStatus: Chronic(3) [...] was admitted in May, for detoxification at [facility] and [place]. Upon revision of his chart, he was admitted for medical stabilization [facility] back in March,. In the emergency room, [...] done in the ER plan: Admit to [facility] floor,cardiac monitoring, initiate [facility] protocol [...] no prophylaxis indicated.This note was generated with [employer] dictation software. It may contain incorrect words,spelling, and punctuation that were not noted in checking the note before signing.Code VisitInpatient DINA: 34216 Init Hosp L207/17/17 1644 Date [facility] Blanco [facility] Signature: Date (if applicable)CC: Salma Blanco; OUT OF TOWN DOCTOR Signed Normal [facility] Lipaseon 07-17-2017 Lipase 248 U/L Normal 73-393 [facility] Comment on above: Performed By: #### L 100.0100 ####[facility] [address] [place], [address] Prothrombin Time w/INRon INR Coag RelTime (PPP) 0.9 {INR} Normal [facility] Comment on above: Performed By: #### L 300.3900 ####[facility] [address] [place], [address] Prothrombin time (PT) Coag time (PPP) 12.4 s Normal 11.7-14.9 [facility] Comment on above: Performed By: #### L 300.3900 ####[facility] [address] [place], [address] Urine Drug Screen (VISTA)on 07-17-2017 BARBITIURATES Negative Normal < 200 ng/mL [facility] Comment on above: Performed By: #### L 100.0100 ####[facility] [address] [place], [address] BENZODIAZIPINE Negative Normal < 200 ng/mL [facility] Comment on above: Performed By: #### L 100.0100 ####[facility] [address] [place], [address] ECSTACY Negative Normal < 500 ng/mL [facility] Comment on above: Performed By: #### L 100.0100 ####[facility] [address] [place], [address] PCP Negative Normal < 25 ng/mL [facility] Comment on above: Performed By: #### L 100.0100 ####[facility] [address] [place], [address] THC Negative Normal < 50 ng/mL [facility] Comment on above: Performed By: #### L 100.0100 ####[facility] [address] [place], [address] Urine, amphetamines presence Negative Normal <1000 ng/mL [facility] Comment on above: Performed By: #### L 100.0100 ####[facility] [address] [place], [address] Urine, cocaine presence Negative Normal < 30 0 ng/mL [facility] Comment on above: Performed By: #### L 100.0100 ####[facility] [address] [place], [place], [address] Urine, methadone presence Negative Normal < 300 ng/mL [facility] Comment on above: Performed By: #### L 100.0100 ####[facility] [address] [place], [address] Urine, opiates presence Negative Normal < 30 0 ng/mL [facility] Comment on above: Performed By: #### L 100.0100 ####[facility] [address] [place], [place], [address] VISTA UDS PH 6 Normal [facility] Comment on above: Performed By: #### L 100.0100 ####[facility] [address] [place], [place], [address] TO BE CONFIRMED Normal [facility] Comment on above: Result Comment: CONF [...] TESTMNEMONIC: [facility]CA Performed By: #### L 100.0100 ####[facility] [address] [place], [address] Discharge Instructionon 03-01 Discharge Instruction [facility] [address] [place], [place] [address]Anikghdilnyt for Home/Discharge Asaughaeclww39/10/17 0823MR#: [id number] Acct: [id number]: AMRIA DE JESUS HOGAN Rep #: [id number]: 1965 51 From: Joon Bellamy [facility]: Status: ADM IN- Discharge DiagnosesCurrent Active Problems:Current [...] Date: 03/10/1712823 Date Joon Bellamy MDCC: Normal [facility] Discharge Summaryon 03-10-20 Discharge Summary [facility] [address] [facility] [place], [place] [address]Pawiuthdt Ntupiat59/10/17 0824MR#: [id number] Acct: [id number]: MARIA DE JESUS HOGAN Rep #: [id number]: 1965 51 From: Joon Bellamy [facility]: Status: ADM IN YLocation: MS2 [id number] Date and Diagnosis- Problem ListPatient Problems:Active and [...] apply): None applicableCode VisitInpatient Natalie WALL M: [id number] Disch Hosp03/10/17 0825 Date Joon Bellamy [facility] Signature (if applicable): Date CC: Joon Bellamy MD Signed Normal [facility] CBC W/Diff, Automatedon 12-0 Absolute Neut 1.3 X10 3/uL Low 2.0-7.7 [facility] Comment on above: Performed By: #### L 100.0100 ####[facility] [address] [place], [address] Basophils/100 WBC Auto (Bld) 0.7 % Normal 0-1 [facility] Comment on above: Performed By: #### L 100.0100 ####[facility] [address] [place], [address] Eosinophils/100 leukocytes 1.5 % Normal 0-5 [facility] Comment on above: Performed By: #### L 100.0100 ####[facility] [address] [place], [address] Erythrocyte distribution width Auto Ratio (RBC) 12.7 % Normal 11.6-14.6 [facility] Comment on above: Performed By: #### L 100.0100 ####[facility] [address] [place], [address] Erythrocytes (RBC) 3.76 M/mm3 Low 4.6-6.[address] [facility] Comment on above: Performed By: #### L 100.0100 ####[facility] [address] [place], [address] Hematocrit (HCT) 36.8 % Low 40-54 [facility] Comment on above: Performed By: #### L 100.0100 ####[facility] [address] [place], [address] Hemoglobin mass conc (Bld) 12.9 g/dL Low 13.0-16.5 [facility] Comment on above: Performed By: #### L 100.0100 ####[facility] [address] [place], [address] IM GRAN % 0.000 % Normal 0.0-0.9 [facility] Comment on above: Result Comment: IG% - Immature Granulocytes (promyelocytes, myelocytes andmetamyelocytes) > 1% indicates that a LEFT SHIFT is Present. Performed By: #### L 100.0100 ####[facility] [address] [place], [address] Lymphocytes 2.14 X10 3/ul Normal 0.83-4.51 [facility] Comment on above: Performed By: #### L 100.0100 ####[facility] [address] [place], [address] Lymphocytes/100 leukocytes 53.4 % High 19-41 [facility] Comment on above: Performed By: #### L 100.0100 ####[facility] [address] [place], [address] MCH 34.3 pg High 27.0-32.0 [facility] Comment on above: Performed By: #### L 100.0100 ####[facility] [address] [place], [address] MCHC mass conc (RBC) 35.1 g/gl Normal 32-36 [facility] Comment on above: Performed By: #### L 100.0100 ####[facility] [address] [place], [address] MCV 97.9 fL High 80-94 [facility] Comment on above: Performed By: #### L 100.0100 ####[facility] [address] [place], [address] Monocytes/100 leukocytes 11.0 % High 0-10 [facility] Comment on above: Performed By: #### L 100.0100 ####[facility] [address] [place], [address] Neutrophils/100 WBC Auto (Bld) 33.4 % Low 47-70 [facility] Comment on above: Performed By: #### L 100.0100 ####[facility] [address] [place], [address] Platelet mean volume (PMV) 8.6 fL Normal 6.2-12.0 [facility] Comment on above: Performed By: #### L 100.0100 ####[facility] [address] [place], [address] Platelets 224 10*3/uL Normal 150-450 [facility] Comment on above: Performed By: #### L 100.0100 ####[facility] [address] [place], [address] RDW SD 44.5 fl High 35.1-43.9 [facility] Comment on above: Performed By: #### L 100.0100 ####[facility] [address] [place], [address] WBC (Leukocytes) 4.0 10*3/uL Low 4.4-11.0 [facility] Comment on above: Performed By: #### L 100.0100 ####[facility] [address] [place], [address] Comprehensive Metabolic Prof ilgigi 03-08-2017 A/G 0.9 RATIO Normal 0.9-2.4 [facility] Comment on above: Performed By: #### L 500.4050 ####[facility] [address] [place], [address] Alanine aminotransferase (ALT) 111 U/L High 12-78 [facility] Comment on above: Performed By: #### L 500.4050 ####[facility] [address] [place], [address] Albumin 2.7 g/dL Low 3.4-5.0 [facility] Comment on above: Result Comment: Sixto rodriguez note revised Albumin AND Globulin reference rangeeffective 2017. Performed By: #### L 500.4050 ####[facility] [address] [place], [address] Alkaline phosphatase (ALP) 94 U/L Normal 45-117 [facility] Comment on above: Performed By: #### L 500.4050 ####[facility] [address] [place], [address] Aspartate aminotransferase (AST) 116 U/L High 15-37 [facility] Comment on above: Result Comment: Mode rate Hemolysis, Result may be falsely increased. Performed By: #### L 500.4050 ####[facility] [address] [place], [address] Bilirubin (total) 0.60 mg/dL Normal 0.20-1.00 [facility] Comment on above: Performed By: #### L 500.4050 ####[facility] [address] [place], [address] BUN (urea nitrogen) 12.6 RATIO Normal 10-20 [facility] Comment on above: Performed By: #### L 500.4050 ####[facility] [address] [place], [address] Calcium 7.5 mg/dL Low 8.5-10.1 [facility] Comment on above: Performed By: #### L 500.4050 ####[facility] [address] [place], [address] Chloride 102 mmol/L Normal 98-107 [facility] Comment on above: Performed By: #### L 500.4050 ####[facility] [address] [place], [address] CO2 29.0 mmol/L Normal 21.0-32.0 [facility] Comment on above: Performed By: #### L 500.4050 ####[facility] [address] [place], [address] Creatinine 0.71 mg/dL Normal 0.70-1.30 [facility] Comment on above: Result Comment: The validity of the calculated GFR AND GFRAA in patients over70 years has not been determined. Clinical correlation isessential. Performed By: #### L 500.4050 ####[facility] [address] [place], [address] eGFR (non-black) 151 mL/min/{1.73_m2} Normal >60 [facility] Comment on above: Result Comment: Afri can Brazilian GFR Calc Performed By: #### L 500.4050 ####[facility] [address] [place], [address] eGFR (non-black) 125 mL/min/{1.73_m2} Normal >60 [facility] Comment on above: Result Comment: Non- GFR Calc Performed By: #### L 500.4050 ####[facility] [address] [place], [address] Estimated CRCL 134.04 ml/min Normal [facility] Comment on above: Performed By: #### L 500.4050 ####[facility] [address] [place], [address] GAP 8 Normal 5-15 [facility] Comment on above: Performed By: #### L 500.4050 ####[facility] [address] [place], [address] Globulin 2.9 g/dL Normal 2.2-4.2 [facility] Comment on above: Performed By: #### L 500.4050 ####[facility] [address] [place], [address] Glucose mass conc 80 mg/dL Normal 70-110 [facility] Comment on above: Performed By: #### L 500.4050 ####[facility] [address] [place], [address] Potassium molar conc 3.9 mmol/L Normal 3.5-5.1 [facility] Comment on above: Result Comment: Mode rate Hemolysis, Result may be falsely increased. Performed By: #### L 500.4050 ####[facility] [address] [place], [address] Sodium 139 mmol/L Normal 136-145 [facility] Comment on above: Performed By: #### L 500.4050 ####[facility] [address] [place], [address] T PROT 5.6 g/dL Low 6.4-8.2 [facility] Comment on above: Performed By: #### L 500.4050 ####[facility] [address] [place], [address] Urea nitrogen 9 mg/dL Normal 7-18 [facility] Comment on above: Performed By: #### L 500.4050 ####[facility] [address] [place], [address] CBC W/Diff, Automatedon 12-0 Absolute Neut 1.7 X10 3/uL Low 2.0-7.7 [facility] Comment on above: Performed By: #### L 100.0100 ####[facility] [address] [place], [address] Basophils/100 WBC Auto (Bld) 0.8 % Normal 0-1 [facility] Comment on above: Performed By: #### L 100.0100 ####[facility] [address] [place], [address] Eosinophils/100 leukocytes 0.3 % Normal 0-5 [facility] Comment on above: Performed By: #### L 100.0100 ####[facility] [address] [place], [address] Erythrocyte distribution width Auto Ratio (RBC) 13.4 % Normal 11.6-14.6 [facility] Comment on above: Performed By: #### L 100.0100 ####[facility] [address] [place], [address] Erythrocytes (RBC) 4.25 M/mm3 Low 4.6-6.[address] [facility] Comment on above: Performed By: #### L 100.0100 ####[facility] [address] [place], [address] Hematocrit (HCT) 42.8 % Normal 40-54 [facility] Comment on above: Performed By: #### L 100.0100 ####[facility] [address] [place], [address] Hemoglobin mass conc (Bld) 14.3 g/dL Normal 13.0-16.5 [facility] Comment on above: Performed By: #### L 100.0100 ####[facility] [address] [place], [address] IM GRAN % 0.300 % Normal 0.0-0.9 [facility] Comment on above: Result Comment: IG% - Immature Granulocytes (promyelocytes, myelocytes andmetamyelocytes) > 1% indicates that a LEFT SHIFT is Present. Performed By: #### L 100.0100 ####[facility] [address] [place], [address] Lymphocytes 1.86 X10 3/ul Normal 0.83-4.51 [facility] Comment on above: Performed By: #### L 100.0100 ####[facility] [address] [place], [address] Lymphocytes/100 leukocytes 47.2 % High 19-41 [facility] Comment on above: Performed By: #### L 100.0100 ####[facility] [address] [place], [address] MCH 33.6 pg High 27.0-32.0 [facility] Comment on above: Performed By: #### L 100.0100 ####[facility] [address] [place], [address] MCHC mass conc (RBC) 33.4 g/gl Normal 32-36 [facility] Comment on above: Performed By: #### L 100.0100 ####[facility] [address] [place], [address] MCV 100.7 fL High 80-94 [facility] Comment on above: Performed By: #### L 100.0100 ####[facility] [address] [place], [address] Monocytes/100 leukocytes 8.1 % Normal 0-10 [facility] Comment on above: Performed By: #### L 100.0100 ####[facility] [address] [place], [address] Neutrophils/100 WBC Auto (Bld) 43.3 % Low 47-70 [facility] Comment on above: Performed By: #### L 100.0100 ####[facility] [address] [place], [address] Platelet mean volume (PMV) 8.5 fL Normal 6.2-12.0 [facility] Comment on above: Performed By: #### L 100.0100 ####[facility] [address] [place], [address] Platelets 240 10*3/uL Normal 150-450 [facility] Comment on above: Performed By: #### L 100.0100 ####[facility] [address] [place], [address] RDW SD 49.4 fl High 35.1-43.9 [facility] Comment on above: Performed By: #### L 100.0100 ####[facility] [address] [place], [address] WBC (Leukocytes) 3.9 10*3/uL Low 4.4-11.0 [facility] Comment on above: Performed By: #### L 100.0100 ####[facility] [address] [place], [address] Comprehensive Metabolic Prof ilon 03-07-2017 A/G 0.9 RATIO Normal 0.9-2.4 [facility] Comment on above: Performed By: #### L 500.4050 ####[facility] [address] [place], [address] Alanine aminotransferase (ALT) 136 U/L High 12-78 [facility] Comment on above: Performed By: #### L 500.4050 ####[facility] [address] [place], [address] Albumin 3.1 g/dL Low 3.4-5.0 [facility] Comment on above: Result Comment: Sixto rodriguez note revised Albumin AND Globulin reference rangeeffective 2017. Performed By: #### L 500.4050 ####[facility] [address] [place], [address] Alkaline phosphatase (ALP) 107 U/L Normal 45-117 [facility] Comment on above: Performed By: #### L 500.4050 ####[facility] [address] [place], [address] Aspartate aminotransferase (AST) 146 U/L High 15-37 [facility] Comment on above: Performed By: #### L 500.4050 ####[facility] [address] [place], [address] Bilirubin (total) 0.40 mg/dL Normal 0.20-1.00 [facility] Comment on above: Performed By: #### L 500.4050 ####[facility] [address] [place], [address] BUN (urea nitrogen) 8.8 RATIO Low 10-20 [facility] Comment on above: Performed By: #### L 500.4050 ####[facility] [address] [place], [address] Calcium 7.7 mg/dL Low 8.5-10.1 [facility] Comment on above: Performed By: #### L 500.4050 ####[facility] [address] [place], [address] Chloride 101 mmol/L Normal 98-107 [facility] Comment on above: Performed By: #### L 500.4050 ####[facility] [address] [place], [address] CO2 31.0 mmol/L Normal 21.0-32.0 [facility] Comment on above: Performed By: #### L 500.4050 ####[facility] [address] [place], [address] Creatinine 0.91 mg/dL Normal 0.70-1.30 [facility] Comment on above: Result Comment: The validity of the calculated GFR AND GFRAA in patients over70 years has not been determined. Clinical correlation isessential. Performed By: #### L 500.4050 ####[facility] [address] [place], [address] eGFR (non-black) 94 mL/min/{1.73_m2} Normal >60 [facility] Comment on above: Result Comment: Non- GFR Calc Performed By: #### L 500.4050 ####[facility] [address] [place], [address] eGFR (non-black) 114 mL/min/{1.73_m2} Normal >60 [facility] Comment on above: Result Comment: Afri can Brazilian GFR Calc Performed By: #### L 500.4050 ####[facility] [address] [place], [address] Estimated CRCL 104.58 ml/min Normal [facility] Comment on above: Performed By: #### L 500.4050 ####[facility] [address] [place], [address] GAP 7 Normal 5-15 [facility] Comment on above: Performed By: #### L 500.4050 ####[facility] [address] [place], [address] Globulin 3.4 g/dL Normal 2.2-4.2 [facility] Comment on above: Performed By: #### L 500.4050 ####[facility] [address] [place], [address] Glucose mass conc 126 mg/dL High 70-110 [facility] Comment on above: Result Comment: Fast ing Glucose result greater than or equal to 126 mg/dLsuggests DIABETES MELLITUS per A.D.A. criteria. Performed By: #### L 500.4050 ####[facility] [address] [place], [address] Potassium molar conc 3.6 mmol/L Normal 3.5-5.1 [facility] Comment on above: Performed By: #### L 500.4050 ####[facility] [address] [place], [address] Sodium 139 mmol/L Normal 136-145 [facility] Comment on above: Performed By: #### L 500.4050 ####[facility] [address] [place], [address] T PROT 6.5 g/dL Normal 6.4-8.2 [facility] Comment on above: Performed By: #### L 500.4050 ####[facility] [address] [place], [address] Urea nitrogen 8 mg/dL Normal 7-18 [facility] Comment on above: Performed By: #### L 500.4050 ####[facility] [address] [place], [address] History and Physical Examon 03-07-2017 History and Physical Exam [facility]ITALMedical Records [id number] [place], [place] [address]Dzsaynp and Edrljojh06/07/17 1730#: [id number] Acct: [id number]: SAMIRAMARIA DE JESUS Rep #: [id number]: 1965 51 From: 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 Fletcher 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 He has a past medical history of chronic back pain, BPH, tobaccodependence, suspected COPD, and reported history of stroke approximately 10 years ago with mildresidual left-sided weakness. Patient states he has [facility] of 11[facility] [place] [...] albuterol/ipratropium inhaleras neededCode VisitInpatient Natalie WALL M: [id number] Init Hosp L203/07/17 174 Date Estella Fletcher 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-[id number] Cosigner Signature: Date (if applicable) Cari Baer [facility]: IRIS Fletcher; Cari Baer MD Signed Normal [facility] Vital Signs Date Time Vital Sign Value Performing Clinician Facility 08-14-2024 09:42-0400 Body height 180.3 cm Lynda Rasheed MD Work Phone: [facility] 08-14-2024 09:42-0400 Body mass index (BMI) [Ratio] 31.66 kg/m2 Lynda Rasheed MD Work Phone: [facility] 08-14-2024 09:42-0400 Body temperature 97.9 [degF] Lynda Rasheed MD Work Phone: [facility] 08-14-2024 09:42-0400 Body weight 102.97 kg Lynda Rasheed MD Work Phone: [facility] 08-14-2024 09:42-0400 Diastolic blood pressure 76 mm[Hg] Lynda Rasheed MD Work Phone: [facility] 08-14-2024 09:42-0400 Heart rate 90 /min Lynda Rasheed MD Work Phone: [facility] 08-14-2024 09:42-0400 Systolic blood pressure 112 mm[Hg] Lynda Rasheed MD Work Phone: [facility] 08-10-2024 16:25-0400 Body height 180.3 cm Catalino Waddell MD Work Phone: [facility] 08-10-2024 16:25-0400 Body mass index (BMI) [Ratio] 31.1 kg/m2 Catalino Waddell MD Work Phone: [facility] 08-10-2024 16:25-0400 Body temperature 97.81 [degF] Catalino Waddell MD Work Phone: [facility] 08-10-2024 16:25-0400 Body weight 101.15 kg Catalino Waddell MD Work Phone: [facility] [employer] 08-10-2024 16:25-0400 Diastolic blood pressure 99 mm[Hg] Catalino Waddell MD Work Phone: [facility] [employer] [facility] 08-10-2024 16:25-0400 Heart rate 99 /min Catalino Waddell MD Work Phone: [facility] [employer] [facility] 08-10-2024 16:25-0400 Respiratory rate 16 /min Catalino Waddell MD Work Phone: [facility] [employer] [facility] 08-10-2024 16:25-0400 SaO2% (BldA) [Mass fraction] 99 % Catalino Waddell MD Work Phone: [facility] [employer] 08-10-2024 16:25-0400 Systolic blood pressure 175 mm[Hg] Catalino Waddell MD Work Phone: [facility] [employer] [facility] 08-06-2024 11:33-0400 Body temperature 97.81 [degF] Matthew Demarco DO Work Phone: [facility] [employer] [facility] 08-06-2024 11:33-0400 Diastolic blood pressure 95 mm[Hg] Matthew Demarco DO Work Phone: [facility] [employer] [facility] 08-06-2024 11:33-0400 Heart rate 102 /min Matthew Demarco DO Work Phone: [facility] [employer] [facility] 08-06-2024 11:33-0400 Respiratory rate 16 /min Matthew Demarco DO Work Phone: [facility] [employer] [facility] 08-06-2024 11:33-0400 SaO2% (BldA) [Mass fraction] 95 % Matthew Demarco DO Work Phone: [facility] [facility] 08-06-2024 11:33-0400 Systolic blood pressure 139 mm[Hg] Matthew Demarco DO Work Phone: [facility] [employer] [facility] 08-04-2024 15:29-0400 Body height 181 cm Matthew Demarco DO Work Phone: [facility] [employer] [facility] 08-04-2024 15:29-0400 Body mass index (BMI) [Ratio] 31.15 kg/m2 Matthew Demarco DO Work Phone: [facility] [facility] 08-04-2024 15:29-0400 Body weight 102.06 kg Matthew Demarco DO Work Phone: [facility] [facility] 07-01-2024 20:33-0400 Diastolic blood pressure 87 mm[Hg] Goyo Melara MD Work Phone: [facility] [employer] [facility] 07-01-2024 20:33-0400 Heart rate 91 /min Goyo Melara MD Work Phone: [facility] [employer] [facility] 07-01-2024 20:33-0400 Respiratory rate 14 /min Goyo Melara MD Work Phone: [facility] [facility] 07-01-2024 20:33-0400 SaO2% (BldA) [Mass fraction] 99 % Goyo Melara MD Work Phone: [facility] [employer] [facility] 07-01-2024 20:33-0400 Systolic blood pressure 129 mm[Hg] Goyo Melara MD Work Phone: [facility] [employer] [facility] 07-01-2024 19:53-0400 Body height 177.8 cm Goyo Melara MD Work Phone: [facility] [employer] [facility] 07-01-2024 19:53-0400 Body mass index (BMI) [Ratio] 31.85 kg/m2 Goyo Melara MD Work Phone: [facility] [employer] [facility] 07-01-2024 19:53-0400 Body temperature 98.1 [degF] Goyo Melara MD Work Phone: [facility] [employer] [facility] 07-01-2024 19:53-0400 Body weight 100.7 kg Goyo Melara MD Work Phone: [facility] [employer] [facility] 06-16-2024 14:06-0400 Body height 177.8 cm Lynda Rasheed MD Work Phone: [facility] [employer] [facility] 06-16-2024 14:06-0400 Body mass index (BMI) [Ratio] 31.71 kg/m2 Lynda Rasheed MD Work Phone: [facility] 06-16-2024 14:06-0400 Body temperature 97.3 [degF] Lynda Rasheed MD Work Phone: [facility] [employer] [facility] 06-16-2024 14:06-0400 Body weight 100.25 kg Lynda Rasheed MD Work Phone: [facility] [employer] [facility] 06-16-2024 14:06-0400 Diastolic blood pressure 66 mm[Hg] Lynda Rasheed MD Work Phone: [facility] [employer] [facility] 06-16-2024 14:06-0400 Heart rate 108 /min Lynda Rasheed MD Work Phone: [facility] [employer] [facility] 06-16-2024 14:06-0400 SaO2% (BldA) [Mass fraction] 94 % Lynda Rasheed MD Work Phone: [facility] [facility] 06-16-2024 14:06-0400 Systolic blood pressure 106 mm[Hg] Lynda Rasheed MD Work Phone: [facility] [employer] [facility] 06-04-2024 10:54-0500 Body temperature 97.9 [degF] Catalino Imani DO Work Phone: [facility] [employer] [facility] 06-04-2024 10:54-0500 Diastolic blood pressure 99 mm[Hg] Catalino Yuaci DO Work Phone: [facility] [employer] [facility] 06-04-2024 10:54-0500 Heart rate 99 /min Catalino Yuaci DO Work Phone: [facility] [employer] [facility] 06-04-2024 10:54-0500 Respiratory rate 20 /min Catalino Gigiaci DO Work Phone: [facility] [employer] [facility] 06-04-2024 10:54-0500 SaO2% (BldA) [Mass fraction] 94 % Catalino Yuaci DO Work Phone: [facility] [facility] 06-04-2024 10:54-0500 Systolic blood pressure 141 mm[Hg] Catalino Diallo DO Work Phone: [facility] [employer] [facility] 06-02-2024 18:30-0500 Body height 177.8 cm Catalino Diallo DO Work Phone: [facility] [facility] 06-02-2024 18:30-0500 Body mass index (BMI) [Ratio] 31.57 kg/m2 Catalino Diallo DO Work Phone: [facility] [facility] 06-02-2024 18:30-0500 Body weight 99.79 kg Catalino Diallo DO Work Phone: [facility] [facility] 05-25-2024 15:50-0500 Diastolic blood pressure 94 mm[Hg] Goyo Melara MD Work Phone: [facility] [facility] 05-25-2024 15:50-0500 Systolic blood pressure 113 mm[Hg] Goyo Melara MD Work Phone: [facility] [facility] 05-25-2024 15:46-0500 Body height 180.3 cm Goyo Melara MD Work Phone: [facility] [facility] 05-25-2024 15:46-0500 Body mass index (BMI) [Ratio] 32.08 kg/m2 Goyo Melara MD Work Phone: [facility] [facility] 05-25-2024 15:46-0500 Body temperature 97.5 [degF] Goyo Melara MD Work Phone: [facility] [facility] 05-25-2024 15:46-0500 Body weight 104.33 kg Goyo Melara MD Work Phone: [facility] [facility] 05-25-2024 15:46-0500 Heart rate 114 /min Goyo Melara MD Work Phone: [facility] [facility] 05-25-2024 15:46-0500 Respiratory rate 18 /min Goyo Melara MD Work Phone: [facility] 05-25-2024 15:46-0500 SaO2% (BldA) [Mass fraction] 93 % Goyo Melara MD Work Phone: [facility] [facility] 05-20-2024 13:15-0500 Body height 182.9 cm Lynda Rasheed MD Work Phone: [facility] [employer] [facility] 05-20-2024 13:15-0500 Body mass index (BMI) [Ratio] 30.54 kg/m2 Lynda Rasheed MD Work Phone: [facility] [facility] 05-20-2024 13:15-0500 Body temperature 97 [degF] Lynda Rasheed MD Work Phone: [facility] [facility] 05-20-2024 13:15-0500 Body weight 102.15 kg Lynda Rasheed MD Work Phone: [facility] [facility] 05-20-2024 13:15-0500 Diastolic blood pressure 75 mm[Hg] Lynda Rasheed MD Work Phone: [facility] [facility] 05-20-2024 13:15-0500 Heart rate 96 /min Lynda Rasheed MD Work Phone: [facility] [facility] 05-20-2024 13:15-0500 SaO2% (BldA) [Mass fraction] 97 % Lynda Rasheed MD Work Phone: [facility] [facility] 05-20-2024 13:15-0500 Systolic blood pressure 118 mm[Hg] Lynda Rasheed MD Work Phone: [facility] [facility] 05-10-2024 11:17-0500 Body temperature 98.29 [degF] Johnny Glozman DO Work Phone: [facility] [facility] 05-10-2024 11:17-0500 Diastolic blood pressure 86 mm[Hg] Johnny Glozman DO Work Phone: [facility] [facility] 05-10-2024 11:17-0500 Heart rate 107 /min Johnny Glozman DO Work Phone: [employer] 05-10-2024 11:17-0500 Respiratory rate 18 /min Johnny Glozman DO Work Phone: [facility] [facility] 05-10-2024 11:17-0500 SaO2% (BldA) [Mass fraction] 94 % Johnny Glozman DO Work Phone: [facility] [facility] 05-10-2024 11:17-0500 Systolic blood pressure 122 mm[Hg] Johnny Glozman DO Work Phone: [email or web address] 05-08-2024 12:07-0500 Body height 183.4 cm Johnny Glozman DO Work Phone: [employer] 05-08-2024 12:07-0500 Body mass index (BMI) [Ratio] 27.65 kg/m2 Johnny Glozman DO Work Phone: [facility] [employer] [facility] 05-08-2024 12:07-0500 Body weight 92.99 kg Johnny Glozman DO Work Phone: [email or web address] 04-12-2024 07:10-0500 Body temperature 97.3 [degF] Mejgon Miesha DO Work Phone: [email or web address] 04-12-2024 07:10-0500 Diastolic blood pressure 95 mm[Hg] Mejgon Miesha DO Work Phone: [facility] [employer] [facility] 04-12-2024 07:10-0500 Heart rate 87 /min Mejgon Miesha DO Work Phone: [employer] 04-12-2024 07:10-0500 Respiratory rate 16 /min Mejgon Miesha DO Work Phone: [employer] 04-12-2024 07:10-0500 SaO2% (BldA) [Mass fraction] 97 % Mejgon Miesha DO Work Phone: [email or web address] 04-12-2024 07:10-0500 Systolic blood pressure 134 mm[Hg] Mejgon Miesha DO Work Phone: [employer] 04-11-2024 16:17-0500 Body height 180.3 cm Mejgon Miesha DO Work Phone: [employer] 04-10-2024 19:47-0500 Body mass index (BMI) [Ratio] 31.49 kg/m2 Mejgon Miesha DO Work Phone: [employer] 04-10-2024 19:47-0500 Body weight 102.4 kg Kolby Whiteside DO Work Phone: [facility] [employer] 02-28-2024 09:54-0500 Body height 180.3 cm Myra Darden MD Work Phone: [facility] 02-28-2024 09:54-0500 Body mass index (BMI) [Ratio] 32.5 kg/m2 Myra Darden MD Work Phone: [facility] 02-28-2024 09:54-0500 Body weight 105.69 kg Myra Darden MD Work Phone: [facility] [employer] 02-28-2024 09:54-0500 Diastolic blood pressure 86 mm[Hg] Myra Darden MD Work Phone: [facility] 02-28-2024 09:54-0500 Heart rate 100 /min Myra Darden MD Work Phone: [facility] [employer] 02-28-2024 09:54-0500 SaO2% (BldA) [Mass fraction] 94 % Myra Darden MD Work Phone: [facility] [employer] Comment on above: 02-28-2024 09:54-0500 Systolic blood pressure 126 mm[Hg] Myra Darden MD Work Phone: [facility] [employer] [facility] 02-05-2024 08:15-0500 Body height 180.3 cm Lynda Rasheed MD Work Phone: [facility] [employer] 02-05-2024 08:15-0500 Body mass index (BMI) [Ratio] 31.74 kg/m2 Lynda Rasheed MD Work Phone: [facility] [employer] [facility] 02-05-2024 08:15-0500 Body temperature 98.1 [degF] Lynda Rasheed MD Work Phone: [facility] [employer] [facility] 02-05-2024 08:15-0500 Body weight 103.24 kg Lynda Rasheed MD Work Phone: [facility] [employer] [facility] 02-05-2024 08:15-0500 Diastolic blood pressure 80 mm[Hg] Lynda Rasheed MD Work Phone: [employer] 02-05-2024 08:15-0500 Heart rate 93 /min Lynda Rasheed MD Work Phone: [facility] 02-05-2024 08:15-0500 SaO2% (BldA) [Mass fraction] 96 % Lynda Rasheed MD Work Phone: [employer] 02-05-2024 08:15-0500 Systolic blood pressure 127 mm[Hg] Lynda Rasheed MD Work Phone: [employer] 01-24-2024 11:26-0400 Body temperature 97.11 [degF] Triston Abraham MD Work Phone: [facility] 01-24-2024 11:26-0400 Diastolic blood pressure 79 mm[Hg] Triston Abraham MD Work Phone: [facility] [facility] 01-24-2024 11:26-0400 Respiratory rate 16 /min Triston Abraham MD Work Phone: [employer] [facility] 01-24-2024 11:26-0400 Systolic blood pressure 113 mm[Hg] Triston Abraham MD Work Phone: [employer] [facility] 01-24-2024 08:16-0400 Heart rate 94 /min Triston Abraham MD Work Phone: [employer] [facility] 01-24-2024 08:16-0400 SaO2% (BldA) [Mass fraction] 98 % Triston Abraham MD Work Phone: [employer] 01-20-2024 22:51-0400 Body height 180.3 cm Triston Abraham MD Work Phone: [employer] 01-20-2024 22:51-0400 Body mass index (BMI) [Ratio] 32.08 kg/m2 Triston Abraham MD Work Phone: [facility] [employer] [facility] 01-20-2024 22:51-0400 Body weight 104.33 kg Triston Abraham MD Work Phone: [facility] [employer] [facility] 11-30-2023 08:09-0400 Body temperature 97.3 [degF] Steve Demarco MD Work Phone: [facility] [employer] [facility] 11-30-2023 08:09-0400 Diastolic blood pressure 92 mm[Hg] Steve Demarco MD Work Phone: [facility] [facility] 11-30-2023 08:09-0400 Heart rate 112 /min Steve Demarco MD Work Phone: [facility] [facility] 11-30-2023 08:09-0400 Respiratory rate 18 /min Steve Demarco MD Work Phone: [facility] [facility] 11-30-2023 08:09-0400 SaO2% (BldA) [Mass fraction] 95 % Steve Demarco MD Work Phone: [facility] [facility] 11-30-2023 08:09-0400 Systolic blood pressure 136 mm[Hg] Steve Demarco MD Work Phone: [facility] [facility] 11-27-2023 20:24-0400 Body height 180.3 cm Steve Demarco MD Work Phone: [facility] [facility] 11-27-2023 20:24-0400 Body mass index (BMI) [Ratio] 32.08 kg/m2 Steve Demarco MD Work Phone: [facility] [employer] [facility] 11-27-2023 20:24-0400 Body weight 104.33 kg Steve Demarco MD Work Phone: [facility] [facility] 07-31-2023 10:14-0400 Body temperature 96.8 [degF] Triston Abraham MD Work Phone: [facility] [facility] 07-31-2023 10:14-0400 Diastolic blood pressure 104 mm[Hg] Triston Abraham MD Work Phone: [facility] [employer] [facility] 07-31-2023 10:14-0400 Heart rate 97 /min Triston Abraham MD Work Phone: [facility] [facility] 07-31-2023 10:14-0400 Respiratory rate 19 /min Triston Abraham MD Work Phone: [facility] [facility] 07-31-2023 10:14-0400 SaO2% (BldA) [Mass fraction] 96 % Triston Abraham MD Work Phone: [facility] [facility] 07-31-2023 10:14-0400 Systolic blood pressure 148 mm[Hg] Triston Abraham MD Work Phone: [facility] [facility] 07-28-2023 01:01-0400 Body height 180.3 cm Triston Abraham MD Work Phone: [facility] [facility] 07-28-2023 01:01-0400 Body mass index (BMI) [Ratio] 29.99 kg/m2 Triston Abraham MD Work Phone: [facility] [facility] 07-28-2023 01:01-0400 Body weight 97.52 kg Triston Abraham MD Work Phone: [facility] [facility] 07-11-2023 11:18-0400 Body temperature 97.39 [degF] Catalino Mujica MD Work Phone: [facility] [facility] 07-11-2023 11:18-0400 Diastolic blood pressure 87 mm[Hg] Catalino Mujica MD Work Phone: [facility] [facility] 07-11-2023 11:18-0400 Heart rate 106 /min Catalino Mujica MD Work Phone: [employer] 07-11-2023 11:18-0400 Respiratory rate 16 /min Catalino Mujica MD Work Phone: [facility] 07-11-2023 11:18-0400 SaO2% (BldA) [Mass fraction] 95 % Catalino Mujica MD Work Phone: [facility] [facility] 07-11-2023 11:18-0400 Systolic blood pressure 123 mm[Hg] Catalino Mujica MD Work Phone: [employer] 07-08-2023 17:46-0400 Body height 180.3 cm Catalino Mujica MD Work Phone: [employer] 07-08-2023 17:46-0400 Body mass index (BMI) [Ratio] 30.68 kg/m2 Catalino Mujica MD Work Phone: [employer] 07-08-2023 17:46-0400 Body weight 99.79 kg Catalino Mujica MD Work Phone: [employer] 05-23-2023 08:00-0500 Body temperature 98.01 [degF] Scooter Luna MD Work Phone: [employer] 05-23-2023 08:00-0500 Diastolic blood pressure 96 mm[Hg] Scooter Luna MD Work Phone: [employer] 05-23-2023 08:00-0500 Heart rate 108 /min Scooter Luna MD Work Phone: [employer] 05-23-2023 08:00-0500 Respiratory rate 14 /min Scooter Luna MD Work Phone: [employer] 05-23-2023 08:00-0500 Systolic blood pressure 136 mm[Hg] Scooter Luna MD Work Phone: [employer] 05-22-2023 20:39-0500 SaO2% (BldA) [Mass fraction] 95 % Scooter Luna MD Work Phone: [employer] 05-20-2023 19:47-0500 Body height 177.8 cm Scooter Luna MD Work Phone: [employer] 05-20-2023 19:47-0500 Body mass index (BMI) [Ratio] 28.55 kg/m2 Scooter Luna MD Work Phone: [employer] 05-20-2023 19:47-0500 Body weight 90.27 kg Scooter Luna MD Work Phone: [employer] 03-19-2023 10:21-0500 Body height 180.3 cm Catalino Waddell MD Work Phone: [employer] [facility] 03-19-2023 10:21-0500 Body mass index (BMI) [Ratio] 29.99 kg/m2 Catalino Waddell MD Work Phone: [facility] [employer] 03-19-2023 10:21-0500 Body temperature 98.2 [degF] Catalino Waddell MD Work Phone: [facility] [employer] 03-19-2023 10:21-0500 Body weight 97.52 kg Catalino Waddell MD Work Phone: [facility] 03-19-2023 10:21-0500 Diastolic blood pressure 82 mm[Hg] Catalino Waddell MD Work Phone: [employer] [facility] 03-19-2023 10:21-0500 Heart rate 114 /min Catalino Waddell MD Work Phone: [employer] [facility] 03-19-2023 10:21-0500 Respiratory rate 16 /min Catalino Waddell MD Work Phone: [employer] [facility] 03-19-2023 10:21-0500 SaO2% (BldA) [Mass fraction] 95 % Catalino Waddell MD Work Phone: [employer] 03-19-2023 10:21-0500 Systolic blood pressure 141 mm[Hg] Catalino Waddell MD Work Phone: [employer] [facility] 02-18-2023 07:50-0500 Body temperature 97.81 [degF] Harjinder Darnell MD Work Phone: [employer] [facility] 02-18-2023 07:50-0500 Diastolic blood pressure 100 mm[Hg] Harjinder Darnell MD Work Phone: [employer] 02-18-2023 07:50-0500 Heart rate 93 /min Harjinder Darnell MD Work Phone: [employer] [facility] 02-18-2023 07:50-0500 Respiratory rate 16 /min Harjinder Darnell MD Work Phone: [employer] 02-18-2023 07:50-0500 SaO2% (BldA) [Mass fraction] 99 % Harjinder Darnell MD Work Phone: [facility] [employer] [facility] 02-18-2023 07:50-0500 Systolic blood pressure 164 mm[Hg] Harjinder Darnell MD Work Phone: [facility] 02-17-2023 09:17-0500 Diastolic blood pressure 93 mm[Hg] Harjinder Darnell MD Work Phone: [facility] [facility] 02-17-2023 09:17-0500 Heart rate 93 /min Harjinder Darnell MD Work Phone: [facility] [facility] 02-17-2023 09:17-0500 Respiratory rate 16 /min Harjinder Darnell MD Work Phone: [facility] [facility] 02-17-2023 09:17-0500 SaO2% (BldA) [Mass fraction] 96 % Harjinder Darnell MD Work Phone: [facility] [facility] 02-17-2023 09:17-0500 Systolic blood pressure 138 mm[Hg] Harjinder Darnell MD Work Phone: [facility] [facility] 02-17-2023 09:03-0500 Body height 180.3 cm Harjinder Darnell MD Work Phone: [facility] 02-17-2023 09:03-0500 Body mass index (BMI) [Ratio] 30.68 kg/m2 Harjinder Darnell MD Work Phone: [facility] [facility] 02-17-2023 09:03-0500 Body temperature 97.9 [degF] Harjinder Darnell MD Work Phone: [facility] [facility] 02-17-2023 09:03-0500 Body weight 99.79 kg Harjinder Darnell MD Work Phone: [facility] [facility] 02-11-2023 11:26-0500 Body temperature 97.39 [degF] Anusha Kothari MD Work Phone: [facility] [facility] 02-11-2023 11:26-0500 Diastolic blood pressure 97 mm[Hg] Anusha Kothari MD Work Phone: [facility] [facility] 02-11-2023 11:26-0500 Heart rate 104 /min Anusha Kothari MD Work Phone: [facility] [facility] 02-11-2023 11:26-0500 Respiratory rate 17 /min Anusha Kothari MD Work Phone: [facility] [facility] 02-11-2023 11:26-0500 SaO2% (BldA) [Mass fraction] 95 % Anusha Kothari MD Work Phone: [facility] [facility] 02-11-2023 11:26-0500 Systolic blood pressure 141 mm[Hg] Anusha Kothari MD Work Phone: [facility] [facility] 02-08-2023 16:46-0500 Body mass index (BMI) [Ratio] 30.13 kg/m2 Anusha Kothari MD Work Phone: [facility] [facility] 02-08-2023 16:46-0500 Body weight 95.25 kg Anusha Kothari MD Work Phone: [facility] 12-26-2022 08:25-0400 Body height 177.8 cm Lynda Rasheed MD Work Phone: [facility] [facility] 12-26-2022 08:25-0400 Body mass index (BMI) [Ratio] 32 kg/m2 Lynda Rasheed MD Work Phone: [facility] [facility] 12-26-2022 08:25-0400 Body temperature 98.29 [degF] Lynda Rasheed MD Work Phone: [facility] [facility] 12-26-2022 08:25-0400 Body weight 101.15 kg Lynda Rasheed MD Work Phone: [facility] [facility] 12-26-2022 08:25-0400 Diastolic blood pressure 82 mm[Hg] Lynda Rasheed MD Work Phone: [facility] [facility] 12-26-2022 08:25-0400 Heart rate 98 /min Lynda Rasheed MD Work Phone: [facility] [facility] 12-26-2022 08:25-0400 SaO2% (BldA) [Mass fraction] 93 % Lynda Rasheed MD Work Phone: [facility] [facility] 12-26-2022 08:25-0400 Systolic blood pressure 116 mm[Hg] Lynda Rasheed MD Work Phone: [facility] [facility] 09-25-2022 08:23-0400 Body height 177.8 cm Lynda Rasheed MD Work Phone: [facility] [employer] 09-25-2022 08:23-0400 Body mass index (BMI) [Ratio] 30.85 kg/m2 Lynda Rasheed MD Work Phone: [facility] [employer] 09-25-2022 08:23-0400 Body temperature 98.71 [degF] Lynda Rasheed MD Work Phone: [facility] [employer] 09-25-2022 08:23-0400 Body weight 97.52 kg Lynda Rasheed MD Work Phone: [facility] [employer] 09-25-2022 08:23-0400 Diastolic blood pressure 64 mm[Hg] Lynda Rasheed MD Work Phone: [facility] [employer] 09-25-2022 08:23-0400 Heart rate 112 /min Lynda Rasheed MD Work Phone: [facility] [employer] 09-25-2022 08:23-0400 SaO2% (BldA) [Mass fraction] 95 % Lynda Rasheed MD Work Phone: [facility] [employer] 09-25-2022 08:23-0400 Systolic blood pressure 88 mm[Hg] Lynda Rasheed MD Work Phone: [facility] [employer] 09-14-2022 11:20-0400 Body temperature 97.81 [degF] Triston Abraham MD Work Phone: [facility] [employer] 09-14-2022 11:20-0400 Diastolic blood pressure 96 mm[Hg] Triston Abraham MD Work Phone: [facility] [employer] 09-14-2022 11:20-0400 Heart rate 93 /min Triston Abraham MD Work Phone: [facility] [employer] 09-14-2022 11:20-0400 Respiratory rate 16 /min Triston Abraham MD Work Phone: [facility] [employer] 09-14-2022 11:20-0400 SaO2% (BldA) [Mass fraction] 93 % Triston Abraham MD Work Phone: [facility] [employer] 09-14-2022 11:20-0400 Systolic blood pressure 135 mm[Hg] Triston Abraham MD Work Phone: [facility] [employer] 09-12-2022 13:08-0400 Body height 177.8 cm Triston Abraham MD Work Phone: [facility] [employer] 09-10-2022 19:54-0400 Body mass index (BMI) [Ratio] 28.7 kg/m2 Triston Abraham MD Work Phone: [facility] [employer] 09-10-2022 19:54-0400 Body weight 90.72 kg Triston Abraham MD Work Phone: [facility] [employer] 08-01-2022 08:27-0400 Body height 177.8 cm Lynda Rasheed MD Work Phone: [facility] [employer] 08-01-2022 08:27-0400 Body mass index (BMI) [Ratio] 31.85 kg/m2 Lynda Rasheed MD Work Phone: [facility] [employer] 08-01-2022 08:27-0400 Body temperature 99 [degF] Lynda Rasheed MD Work Phone: [facility] [employer] 08-01-2022 08:27-0400 Body weight 100.7 kg Lynda Rasheed MD Work Phone: [facility] [employer] 08-01-2022 08:27-0400 Diastolic blood pressure 76 mm[Hg] Lynda Rasheed MD Work Phone: [facility] [employer] 08-01-2022 08:27-0400 Heart rate 93 /min Lynda Rasheed MD Work Phone: [facility] [employer] 08-01-2022 08:27-0400 SaO2% (BldA) [Mass fraction] 95 % Lynda Rasheed MD Work Phone: [facility] [employer] 08-01-2022 08:27-0400 Systolic blood pressure 105 mm[Hg] Lynda Rasheed MD Work Phone: [facility] [employer] 07-23-2022 10:17-0400 Diastolic blood pressure 94 mm[Hg] Arsenio Gombash DO Work Phone: [facility] [employer] 07-23-2022 10:17-0400 Heart rate 110 /min Arsenio Gombash DO Work Phone: [facility] [employer] 07-23-2022 10:17-0400 Respiratory rate 18 /min Arsenio Gombash DO Work Phone: [facility] [employer] 07-23-2022 10:17-0400 SaO2% (BldA) [Mass fraction] 96 % Arsenio Gombash DO Work Phone: [facility] [employer] 07-23-2022 10:17-0400 Systolic blood pressure 136 mm[Hg] Arsenio Gombash DO Work Phone: [facility] [employer] 07-23-2022 09:57-0400 Body temperature 99.81 [degF] Arsenio Gombash DO Work Phone: [facility] [employer] 07-23-2022 09:19-0400 Body height 177.8 cm Arsenio Gombash DO Work Phone: [facility] [employer] 07-23-2022 09:19-0400 Body mass index (BMI) [Ratio] 31.85 kg/m2 Arsenio Gombash DO Work Phone: [facility] [employer] 07-23-2022 09:19-0400 Body weight 100.7 kg Arsenio Gombash DO Work Phone: [facility] [employer] 06-12-2022 10:08-0400 Body height 180.3 cm Lynda Rasheed MD Work Phone: [facility] [employer] 06-12-2022 10:08-0400 Body mass index (BMI) [Ratio] 31.1 kg/m2 Lydna Rasheed MD Work Phone: [facility] [employer] 06-12-2022 10:08-0400 Body weight 101.15 kg Lynda Rasheed MD Work Phone: [facility] [employer] 06-12-2022 10:08-0400 Diastolic blood pressure 74 mm[Hg] Lynda Rasheed MD Work Phone: [facility] [employer] 06-12-2022 10:08-0400 Heart rate 116 /min Lynda Rashede MD Work Phone: [facility] [employer] 06-12-2022 10:08-0400 SaO2% (BldA) [Mass fraction] 94 % Lynda Rasheed MD Work Phone: [facility] [employer] 06-12-2022 10:08-0400 Systolic blood pressure 118 mm[Hg] Lynda Rasheed MD Work Phone: [facility] [employer] 09-29-2021 08:21-0400 Body temperature 97.9 [degF] Dipesh Nesheim DO Work Phone: [facility] 09-29-2021 08:21-0400 Diastolic blood pressure 109 mm[Hg] Dipesh Nesheim DO Work Phone: [facility] 09-29-2021 08:21-0400 Heart rate 104 /min Dipesh Nesheim DO Work Phone: [facility] 09-29-2021 08:21-0400 Respiratory rate 16 /min Dipesh Nesheim DO Work Phone: [facility] 09-29-2021 08:21-0400 SaO2% (BldA) [Mass fraction] 94 % Dipesh Nesheim DO Work Phone: [facility] 09-29-2021 08:21-0400 Systolic blood pressure 158 mm[Hg] Dipesh Nesheim DO Work Phone: [facility] 09-27-2021 00:45-0400 Body height 180.3 cm Dipesh Nesheim DO Work Phone: [facility] 09-27-2021 00:45-0400 Body mass index (BMI) [Ratio] 28.41 kg/m2 Dipesh Nesheim DO Work Phone: [facility] 09-27-2021 00:45-0400 Body weight 92.4 kg Dipesh Nesheim DO Work Phone: [facility] 06-09-2021 15:07-0500 Body temperature 97.5 [degF] Catalino Diallo DO Work Phone: [facility] 06-09-2021 15:07-0500 Diastolic blood pressure 97 mm[Hg] Catalino Diallo DO Work Phone: [facility] 06-09-2021 15:07-0500 Heart rate 104 /min Catalino Yuaci DO Work Phone: [facility] 06-09-2021 15:07-0500 Respiratory rate 22 /min Catalino Diallo DO Work Phone: [facility] 06-09-2021 15:07-0500 SaO2% (BldA) [Mass fraction] 98 % Catalino Diallo DO Work Phone: [facility] 06-09-2021 15:07-0500 Systolic blood pressure 179 mm[Hg] Catalino Yuaci DO Work Phone: [facility] 06-08-2021 07:25-0500 Body height 180.3 cm Catalino Yuaci DO Work Phone: [facility] 06-08-2021 07:25-0500 Body mass index (BMI) [Ratio] 28.59 kg/m2 Catalino Yuaci DO Work Phone: [facility] 06-08-2021 07:25-0500 Body weight 92.99 kg Catalino Yuaci DO Work Phone: [facility] 04-06-2021 09:38-0500 Body temperature 98.1 [degF] Joon Sheikh MD Work Phone: [facility] 04-06-2021 09:38-0500 Diastolic blood pressure 108 mm[Hg] Joon Sheikh MD Work Phone: [facility] 04-06-2021 09:38-0500 Heart rate 100 /min Joon Sheikh MD Work Phone: [facility] 04-06-2021 09:38-0500 Respiratory rate 20 /min Joon Sheikh MD Work Phone: [facility] 04-06-2021 09:38-0500 SaO2% (BldA) [Mass fraction] 95 % Joon Sheikh MD Work Phone: [facility] 04-06-2021 09:38-0500 Systolic blood pressure 160 mm[Hg] Joon Sheikh MD Work Phone: [facility] 06-10-2020 09:21-0500 BP Diastolic 104 mm[Hg] [...] Phone: 11-08-2019 10:09-0400 Body Temperature 99.19 [degF] [facility] [place] 11-08-2019 10:09-0400 BP Diastolic 99 mm[Hg] Harjinder [facility], [place] 11-08-2019 10:09-0400 BP Systolic 140 mm[Hg] HarjinderStraight Up English [facility], [place] 11-08-2019 10:09-0400 Pulse (Heart Rate) 86 /min Harjinder Darnell [facility], [place] 11-08-2019 10:09-0400 Pulse Oximetry 96 % Harjinder WashingtonBECC [facility] 11-08-2019 10:09-0400 Respiratory Rate 16 /min Harjinder WashingtonBECC [facility], [place] 09-02-2019 11:34-0400 Body Temperature 97.2 [degF] Lynda LegitTraderterryAudienceRate [facility]MISS[facility] [place] 09-02-2019 11:34-0400 BP Diastolic 92 mm[Hg] Lynda LegitTraderterrySPARQ [facility] [place] , [place] 09-02-2019 11:34-0400 BP Systolic 125 mm[Hg] LyndaOscar TechterrySPARQ [facility] [place] , [place] 09-02-2019 11:34-0400 Pulse (Heart Rate) 107 /min Lynda BuiSPARQ [facility] [place] 09-02-2019 11:34-0400 Pulse Oximetry 94 % Lynda LegitTraderterryAudienceRate Ltd[facility] [place] , [place] 09-02-2019 11:34-0400 Respiratory Rate 20 /min Lynda BuiSPARQGranville Medical CenterPharmacopeiaMISS[facility] [place] 08-31-2019 17:13-0400 BMI (Body Mass Index) 29.29 kg/m2 Lynda LegitTraderterryInterlace Medicalkameron DesigualMISS[facility] [place] 08-31-2019 17:13-0400 Body weight 95.25 kg Lynda Rasheed [facility], [place] 08-31-2019 17:13-0400 Height 180.3 cm Lynda Rasheed [facility], [place] 06-05-2019 09:01-0500 Body Temperature 97.7 [degF] Catalino Wilcox [facility], [place] 06-05-2019 09:01-0500 BP Diastolic 104 mm[Hg] Catalino [facility]wil[facility] hospital[facility], [place] 06-05-2019 09:01-0500 BP Systolic 155 mm[Hg] Catalino Martinezwilmington hospitalaiyana [facility], [place] 06-05-2019 09:01-0500 Pulse (Heart Rate) 100 /min Catalino Wilcox [facility], [place] 06-05-2019 09:01-0500 Pulse Oximetry 95 % Catalino [facility]wil[facility] hospitalai[facility], [place] 06-05-2019 09:01-0500 Respiratory Rate 12 /min Catalino [facility]wilming[facility] hospitalai[facility], [place] 03-08-2019 13:36-0500 Pulse (Heart Rate) 102 /min José Miguel Talbot [facility], [place] 03-08-2019 13:36-0500 Pulse Oximetry 96 % José Miguel aTlbot [facility] , [place] 03-08-2019 13:36-0500 Respiratory Rate 14 /min José Miguel Talbot [facility], [place] 03-08-2019 13:09-0500 Body Temperature 98.49 [degF] José Miguel Talbot [facility], [place] 03-08-2019 13:09-0500 BP Diastolic 95 mm[Hg] [facility] [place] 03-08-2019 13:09-0500 BP Systolic 137 mm[Hg] José Miguel [place] Encounters Encounter Date Encounter Type Care Provider Facility Start: 08-14-2024 End: 09-01-2024 Telephone encounter Lynda Rasheed MD Work Phone: [facility] Comment on above: Med Refill Start: 08-14-2024 End: 08-14-2024 Office outpatient visit 25 minutes Lynda Rasheed MD Work Phone: [facility] Comment on above: Screening for colon cancer (Primary Dx); Psoriasiform seborrheic dermatitis; Elevated liver enzymes; Neuropathy; Herpes zoster with other complication; Shingles (herpes zoster) polyneuropathy Start: 08-14-2024 End: 08-14-2024 ambulatory LYNDA RASHEED [facility] Start: 08-13-2024 End: 08-13-2024 Subsequent hospital visit by physician Luis Branch MD Work Phone: [facility] Addiction IOP Start: 08-12-2024 End: 08-13-2024 Refill Rashad Gastelum DO Work Phone: [facility] Start: 08-10-2024 End: 08-10-2024 Emergency department patient visit Catalino Waddell MD Work Phone: [facility] ED Comment on above: Acute pain associate d with herpes zoster (Primary Dx) Start: 08-03-2024 End: 08-06-2024 Evaluation and management of inpatient Matthewyasmani Demarco DO Work Phone: [facility] Comment on above: Alcohol withdrawal s yndrome without complication (HCC) (Primary Dx); Alcohol dependence with inpatient treatment (HCC); Herpes zoster without complication; Shingles (herpes zoster) polyneuropathy Start: 07-01-2024 End: 07-01-2024 Emergency department patient visit Goyo Melara MD Work Phone: [facility] ED Comment on above: Subcutaneous hematom a (Primary Dx); Contusion of dorsum of foot Start: 06-25-2024 End: 07-16-2024 Telephone encounter Yasemin Goins CNP Work Phone: [facility] [place] Start: 06-22-2024 End: 06-23-2024 Refill Grayson Kessler PA-C Work Phone: [facility] Comment on above: Psoriasiform seborrh eic dermatitis; Elevated liver enzymes Start: 06-16-2024 End: 06-16-2024 Office outpatient visit 25 minutes Lynda Rasheed MD Work Phone: [facility] Comment on above: Elevated LFTs (Prima ry Dx); Lombardo esophagus with esophagitis; Elevated liver enzymes; Cigarette smoker; Severe alcohol use disorder (HCC); Screening for colon cancer; Lumbar back pain Start: 06-16-2024 End: 06-16-2024 ambulatory [facility] Start: 06-11-2024 End: 06-11-2024 Subsequent hospital visit by physician Myra Darden MD Work Phone: [facility] CT Comment on above: Pulmonary nodule Start: 06-11-2024 End: 06-11-2024 ambulatory [facility] Start: 06-08-2024 End: 06-08-2024 Telephone encounter Lynda Rasheed MD Work Phone: [facility] Clinical Communication Start: 06-03-2024 End: 06-03-2024 Telephone encounter Kristin Goins CNP Work Phone: [facility] [place] Comment on above: Test Scheduling Start: 06-02-2024 End: 06-04-2024 Evaluation and management of inpatient Catalino Diallo DO Work Phone: [facility] Det[facility] Comment on above: Alcohol withdrawal w ith inpatient treatment, uncomplicated (HCC) (Primary Dx); Alcohol use disorder; Severe alcohol use disorder (HCC) Start: 06-01-2024 End: 06-02-2024 Refill Lynda Rasheed MD Work Phone: [facility] Comment on above: Psoriasiform seborrh eic dermatitis; Elevated liver enzymes Start: 05-25-2024 End: 05-25-2024 Emergency department patient visit Goyo Melara MD Work Phone: [facility] ED Comment on above: Closed head injury, initial encounter (Primary Dx); Alcoholic intoxication without complication (CMS/HCC) (HCC) Start: 05-23-2024 End: 05-26-2024 Telephone encounter Lynda Rasheed MD Work Phone: [facility] Clinical Communication Comment on above: Test Scheduling Start: 05-21-2024 End: 05-21-2024 Telephone encounter Mp Dempsey MD Work Phone: [facility] Urology [facility] [place] Start: 05-20-2024 End: 05-20-2024 ambulatory [facility] Start: 05-20-2024 End: 05-20-2024 Transitional care manage srvc 14 day discharge Lynda Rasheed MD Work Phone: [facility] [place] Comment on above: Alcohol abuse (Prima ry Dx); Psoriasiform seborrheic dermatitis; Elevated liver enzymes; Screening for colon cancer; Elevated LFTs; ED (erectile dysfunction) of non-organic origin; Urinary frequency; Pulmonary nodule; Lombardo esophagus with esophagitis Start: 05-14-2024 End: 05-14-2024 Subsequent hospital visit by physician Luis Branch MD Work Phone: [facility] Addiction IOP Start: 05-14-2024 End: 05-14-2024 ambulatory LUIS BRANCH [facility] Start: 05-07-2024 End: 05-10-2024 Evaluation and management of inpatient Johnny Hamilton DO Work Phone: [facility] Comment on above: Alcohol withdrawal s yndrome with complication, with unspecified complication (HCC) (Primary Dx); Alcohol use disorder Start: 04-09-2024 End: 04-12-2024 Evaluation and management of inpatient Mejgon Joao Whiteside DO Work Phone: [facility] Unit A[facility] 2 Comment on above: Alcoholic intoxicati on without complication (CMS/HCC) (HCC) (Primary Dx) Start: 02-28-2024 End: 02-28-2024 ambulatory [facility] Start: 02-28-2024 End: 02-28-2024 Office outpatient new 45 minutes Myra Darden MD Work Phone: [facility] [place] Comment on above: Pulmonary emphysema, unspecified emphysema type (HCC) (Primary Dx); Pulmonary nodule; Cigarette nicotine dependence with other nicotine-induced disorder; Alcohol abuse Start: 02-18-2024 End: 02-18-2024 Documentation procedure Fadia Hartley [facility] [place] Comment on above: Care Coordination (L kaitlin Nodule Review Conference Recommendations 02/18/24) Start: 02-13-2024 End: 02-14-2024 Telephone encounter Fadia Hartley [facility] [place] Comment on above: Care Coordination (L kaitlin Rads 4A Lung Screening CT- Expedited lung nodule clinic eval recommended) Start: 02-11-2024 End: 02-11-2024 Subsequent hospital visit by physician Lynda Rasheed MD Work Phone: [facility] CT Comment on above: Current smoker Start: 02-11-2024 End: 02-11-2024 ambulatory [facility] Start: 02-06-2024 End: 02-06-2024 Refill Lynda Rasheed MD Work Phone: [facility] Comment on above: Arrived Start: 02-05-2024 End: 02-05-2024 Office outpatient visit 25 minutes Lynda Rasheed MD Work Phone: [facility] Comment on above: Screening PSA (prost ate specific antigen) (Primary Dx); Psoriasiform seborrheic dermatitis; Elevated liver enzymes; Screening for colon cancer; Current smoker Start: 02-05-2024 End: 02-05-2024 ambulatory [facility] Start: 02-03-2024 End: 02-03-2024 Subsequent hospital visit by physician Luis Branch MD Work Phone: [facility] Addiction IOP Comment on above: Arrived Start: 01-28-2024 End: 01-28-2024 ambulatory LUIS BRANCH [facility] Start: 01-28-2024 End: 01-28-2024 Subsequent hospital visit [...] by physician Yakov Owen MD Work Phone: [facility] Addiction IOP Comment on above: Arrived Start: 12-03-2023 End: 12-03-2023 Refill Lynda Rasheed MD Work Phone: [facility] Comment on above: Chronic left shoulde r pain Start: 11-27-2023 End: 11-30-2023 Evaluation and management of inpatient Steve Demarco MD Work Phone: [facility] Medical Surgical Unit MSU 4S Comment on above: Alcohol withdrawal s yndrome with perceptual disturbance (HCC) (Primary Dx) Start: 08-26-2023 Refill Tiki Clark ett [employer] Work Phone: [facility] Start: 08-01-2023 Refill Lynda pedersen MD Work Phone: [facility] Comment on above: Chronic left shoulde r pain Start: 07-27-2023 End: 07-31-2023 Evaluation and management of inpatient Triston Abraham MD Work Phone: [facility] Comment on above: Alcohol withdrawal s yndrome without complication (HCC) (Primary Dx); Chronic left shoulder pain Start: 07-19-2023 Refill Lynda pedersen MD Work Phone: [facility] Comment on above: Chronic left shoulde r pain Start: 07-08-2023 End: 07-11-2023 Evaluation and management of inpatient Catalino Mujica MD Work Phone: [facility] Comment on above: Alcohol abuse (Prima ry Dx) Start: 06-26-2023 Refill Lynda pedersen MD Work Phone: [facility] Comment on above: Psoriasiform seborrh eic dermatitis Start: 06-15-2023 Telephone encounter Karolina Krueger RN [facility] ED Start: 06-13-2023 Telephone encounter Catalino Watts [facility] ED Start: 06-06-2023 End: 06-06-2023 Subsequent hospital visit by physician Dori Franco MD Work Phone: [facility] Addiction IOP Comment on above: No Show Start: 05-20-2023 End: 05-23-2023 Evaluation and management of inpatient Scooter Luna MD Work Phone: [facility] Medical Surgical Unit MSU 1E Comment on above: Alcohol withdrawal s yndrome, uncomplicated (HCC) (Primary Dx) Start: 04-24-2023 Refill Lynda pedersen MD Work Phone: [facility] Comment on above: Chronic left shoulde r pain Start: 03-19-2023 End: 03-19-2023 Subsequent hospital visit by physician [facility] [employer] [employer] [facility] Radiology Comment on above: Arrived Start: 03-19-2023 End: 03-19-2023 Emergency department patient visit Catalino Waddell MD Work Phone: [facility] ED Comment on above: Contusion of left mi ddle finger without damage to nail, initial encounter (Primary Dx) Start: 02-18-2023 End: 02-18-2023 Emergency department patient visit Harjinder Darnell MD Work Phone: [facility] ED Comment on above: Dental abscess (Prim hali Dx) Start: 02-17-2023 End: 02-17-2023 Emergency department patient visit Harjinder Darnell MD Work Phone: [facility] ED Comment on above: Pain, dental (Primar y Dx) Start: 02-08-2023 End: 02-11-2023 Evaluation and management of inpatient Anusha Kothari MD Work Phone: [facility] Detox Unit 4E Comment on above: Alcohol withdrawal s yndrome without complication (HCC) (Primary Dx); Alcoholism (CMS/HCC) (HCC) Start: 01-28-2023 Refill Lynda pedersen MD Work Phone: [facility] Comment on above: Chronic left shoulde r pain Start: 12-26-2022 End: 12-26-2022 Office outpatient visit 25 minutes Lynda Rasheed MD Work Phone: [facility] Comment on above: Screening for colon cancer (Primary Dx); Lombardo's esophagus determined by endoscopy; Psoriasiform seborrheic dermatitis; Alcohol use disorder, severe (HCC); Lumbar back pain with radiculopathy affecting lower extremity; Cigarette smoker Start: 12-07-2022 Refill Lynda pedersen MD Work Phone: [facility] Start: 11-01-2022 End: 11-01-2022 ambulatory Lynda Rasheed MD Work Phone: [facility] Laboratory Comment on above: Arrived Hyperglycemia, unspe cified (Primary Dx); Other specified abnormal findings of blood chemistry Start: 10-09-2022 End: 10-09-2022 Office outpatient visit 25 minutes Papito Hood MD Work Phone: [facility] Behavioral Health Comment on above: Alcohol use disorder , severe (HCC) (Primary Dx); Alcohol withdrawal syndrome with complication (HCC); Encounter for monitoring naltrexone therapy Start: 10-01-2022 Telephone encounter Lynda fish MD Work Phone: [facility] Comment on above: Results Start: 09-29-2022 End: 09-29-2022 ambulatory Lynda Rasheed MD Work Phone: [facility] Laboratory Comment on above: Arrived Abnormal levels of o ther serum enzymes (Primary Dx) Start: 09-25-2022 End: 09-25-2022 Office outpatient visit 25 minutes Lynda Rasheed MD Work Phone: [facility] Comment on above: Chronic left shoulde r pain (Primary Dx); Elevated liver enzymes; Psoriasis; Screening for colon cancer; Alcohol abuse Chronic left shoulde r pain (Primary Dx); Elevated liver enzymes; Psoriasiform seborrheic dermatitis; Screening for colon cancer; Alcohol abuse Start: 09-22-2022 Refill Lynda pedersen MD Work Phone: [facility] Comment on above: Chronic left shoulde r pain Start: 09-14-2022 Refill Lynda pedersen MD Work Phone: [facility] Comment on above: Elevated liver enzym es Start: 09-10-2022 End: 09-14-2022 Evaluation and management of inpatient Triston Abraham MD Work Phone: [facility] Comment on above: Alcohol withdrawal s yndrome without complication (HCC) (Primary Dx); Alcohol use disorder Start: 08-01-2022 End: 08-01-2022 Office outpatient visit 25 minutes Lynda Rasheed MD Work Phone: [facility] Comment on above: Uncomplicated alcoho l dependence (HCC) (Primary Dx); Elevated liver enzymes; Abnormal EKG; SOB (shortness of breath); Lombardo's esophagus with dysplasia; Screening for colon cancer; ED (erectile dysfunction) of non-organic origin Start: 07-21-2022 End: 07-23-2022 Evaluation and management of inpatient Arsenio Villalta DO Work Phone: [facility] 2E TELEMETRY Comment on above: Hematemesis with rubén sea (Primary Dx); Alcohol withdrawal syndrome without complication (HCC) Start: 07-16-2022 Refill Lynda pedersen MD Work Phone: [facility] Comment on above: Chronic left shoulde r pain Start: 07-14-2022 Refill Lynda pedersen MD Work Phone: [facility] Comment on above: Chronic left shoulde r pain; Elevated liver enzymes; Psoriasis Start: 07-11-2022 Telephone encounter Lynda fish MD Work Phone: [facility] Comment on above: Results Start: 07-09-2022 End: 07-09-2022 ambulatory Lynda Rasheed MD Work Phone: [facility] Laboratory Start: 07-09-2022 End: 07-09-2022 Subsequent hospital visit by physician Lynda Rasheed MD Work Phone: [facility] Radiology Comment on above: Low back pain, unspe cified; Pain in left shoulder; Other chronic pain; Pain in right shoulder Abnormal levels of o ther serum enzymes (Primary Dx) Low back pain, unspe cified (Primary Dx); Pain in left shoulder; Other chronic pain; Pain in right shoulder Start: 06-12-2022 Telephone encounter Rosalina HOOKS Work Phone: [facility] Dermatology Start: 06-12-2022 End: 06-12-2022 Office outpatient visit 25 minutes Lynda Rasheed MD Work Phone: [facility] Family Medicine Comment on above: Elevated liver enzym es (Primary Dx); Chronic left shoulder pain; Psoriasis; Lumbar back pain; Screening for colon cancer; Chronic pain of both shoulders; Alcohol abuse Start: 09-26-2021 End: 09-29-2021 Evaluation and management of inpatient Dipesh Beckman DO Work Phone: [facility] 2E TELEMETRY Comment on above: Hematemesis with rubén sea (Primary Dx); Alcohol abuse; Lactic acid acidosis Start: 06-06-2021 End: 06-09-2021 Evaluation and management of inpatient Catalino Diallo DO Work Phone: [facility] 4W TELEMETRY Comment on above: UGIB (upper gastroin testinal bleed) (Primary Dx); Acute alcoholic intoxication with complication (HCC) Start: 04-06-2021 End: 04-06-2021 Emergency department patient visit Joon Sheikh MD Work Phone: [facility] ED Comment on above: Strain of lumbar reg ion, initial encounter (Primary Dx) Start: 11-18-2020 End: 11-18-2020 Subsequent hospital visit by physician Lynda Rasheed MD Work Phone: [facility] Comment on above: Chronic cough Start: 09-01-2020 End: 09-01-2020 Subsequent hospital visit by physician Lynda Rasheed MD Work Phone: [facility] Laboratory Comment on above: Colon cancer screeni ng; Elevated LFTs Start: 06-09-2020 End: 06-10-2020 Emergency department patient visit Antonio Mauro Work Phone: [facility] 2E TELEMETRY Comment on above: Hematemesis with rubén sea (Primary Dx); Acute alcoholic intoxication without complication (HCC); Tachycardia; Elevated lactic acid level Start: 11-08-2019 End: 11-08-2019 Emergency department patient visit Harjinder Darnell Work Phone: [facility] ED Comment on above: Acute pharyngitis, u nspecified etiology (Primary Dx) Start: 08-31-2019 Patient encounter procedure Lynda Rasheed [facility] [place] Start: 08-19-2019 Patient encounter procedure Lynda [employer] Start: 08-19-2019 End: 08-19-2019 Office outpatient visit 25 minutes Lynda Rasheed Work Phone: [facility] Comment on above: Localized swelling, mass and lump, neck (Primary Dx) Start: 06-05-2019 Patient encounter procedure Lynda Rasheed [facility] [place] Start: 06-05-2019 End: 06-05-2019 Emergency department patient visit Catalino Wilcox Work Phone: [facility] Comment on above: Acute exacerbation o f chronic low back pain (Primary Dx); Sciatica of left side Start: 03-08-2019 End: 03-08-2019 Emergency department patient visit José Miguel Talbot Work Phone: [facility] ED Comment on above: Strain of lumbar reg ion, initial encounter (Primary Dx) Start: 02-14-2019 End: 02-14-2019 Subsequent hospital visit by physician Lynda Rasheed Work Phone: [facility] Laboratory Comment on above: Mixed hyperlipidemia ; Eczema, unspecified type; Cough Start: 07-17-2017 End: 07-20-2017 Ambulatory Ben Jeremy Facility:[facility] Start: 07-17-2017 End: 07-20-2017 Evaluation and management of inpatient Salma Blanco Facility:[facility] Start: 03-07-2017 Ambulatory 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-C Estella Fletcher Facility:[facility] Start: 03-07-2017 End: 03-10-2017 Evaluation and management of inpatient [place] Facility:[facility] Procedures Date Procedure Procedure Detail Performing [...] Start: 06-02-2024 Comprehensive metabolic panel Shelly emerson PROFESSOR OF [employer] - GAUGER DELIVERY Work Phone: Start: 06-02-2024 End: 06-02-2024 Drug test def 1-7 classes Shelly Clarke PROFESSOR OF FLORIC[employer]URE - GAUGER DELIVERY Work Phone: Start: 06-02-2024 SARS-CoV-2 (COVID-19) Ag [Presence] in Respiratory specimen by Rapid immunoassay Shelly Clarke PROFESSOR OF FLORICULTURE - GAUGER DELIVERY Work Phone: Start: 05-25-2024 Ct cervical spine w/o contrast material Goyo Melara MD Work Phone: Start: 05-25-2024 Ct head/brain w/o contrast material Goyo Melara MD Work Phone: Start: 05-20-2024 Follow-up visit BRYAN MERLINBRITANY Start: 05-07-2024 Comprehensive metabolic panel Shelly emerson [employer] Work Phone: Start: 05-07-2024 End: 05-07-2024 Drug test def 1-7 classes Shelly Clarke PROFESSOR OF FLORIC[employer]URE [employer] Work Phone: Start: 05-07-2024 SARS-CoV-2 (COVID-19) Ag [Presence] in Respiratory specimen by Rapid immunoassay Shelly Clarke [employer] Work Phone: Start: 04-11-2024 Comprehensive metabolic panel Luis sánchez MD Work Phone: Start: 04-09-2024 SARS-CoV-2 (COVID-19) Ag [Presence] in Respiratory specimen by Rapid immunoassay Kolby Shepherd Miesha DO Work Phone: Start: 04-09-2024 UNCONFIRMED DRUG SCREEN odilon Shepherd Miesha DO Work Phone: Start: 04-09-2024 Urinalysis complete panel - Urine Kobly Shepherd Miesha DO Work Phone: Start: 04-09-2024 [...] End: 11-27-2023 Comprehensive metabolic panel Shelly emerson PROFESSOR OF [employer] - GAUGER DELIVERY Work Phone: Start: 11-27-2023 End: 11-27-2023 Drug test def 1-7 classes Shelly Clarke PROFESSOR OF [employer]IC[employer]URE - GAUGER DELIVERY Work Phone: Start: 11-27-2023 SARS-CoV-2 (COVID-19) Ag [Presence] in Respiratory specimen by Rapid immunoassay Shelly Clarke PROFESSOR OF [employer]IC[employer]URE - GAUGER DELIVERY Work Phone: Start: 07-30-2023 OXYGEN THERAPY Mainor M Fredy DO Work Phone: Start: 07-30-2023 Drug screen quantitative phenobarbital Tiki Ponce PROFESSOR OF FLORICULTURE - 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 Work Phone: Start: 07-29-2023 OXYGEN THERAPY Mainor [...] 05-20-2023 MEDICATION ASSISTED TREATMENT PANEL Eda Berry PROFESSOR OF FLORICULTURE - GAUGER DELIVERY Work Phone: Start: 05-20-2023 Urinalysis complete panel [...] Start: 02-11-2023 Hepatic function panel Tiki Ponce PROFESSOR OF FLORICULTURE - 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 Work Phone: Start: 02-10-2023 Hepatic function panel Tiki Ponce PROFESSOR OF FLORICULTURE - 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 Work Phone: Start: 02-08-2023 Urnls dip stick/tablet [...] lds trcg only w/o i&r Robyn Edmond PROFESSOR OF FLORICULTURE - GAUGER DELIVERY Work Phone: Start: 09-10-2022 Ct abdomen & [...] Phone: Start: 09-26-2021 Blood typing serologic abo Dipesh G Nesh eim DO Work Phone: Start: [...] for Adults (1 - 1-dose 75+ series) [facility] [employer] Start: 11-14-2032 Pneumococcal 0-64 years Vaccine (2 of 2 - PPSV23) Pneumococcal 0-64 years Vaccine (2 of 2 - PPSV23) [facility] Start: 11-14-2032 Pneumococcal 0-64 years Vaccine (2 of 2) Pneumococcal 0-64 years Vaccine (2 of 2) [facility] Work Phone: Start: 2027 RSV Immunization aged 60 or older (1 - 1-dose 60+ series) RSV Immunization aged 60 or older (1 - 1-dose 60+ series) [facility] Start: 07-10-2027 Lipid panel Lipid Panel [facility] [employer] Start: 09-01-2025 Lipid panel [facility] Start: 06-11-2025 Screening for malignant neoplasm of lung Lung Cancer Screening [facility] Start: 02-10-2025 Screening for malignant neoplasm of lung Lung Cancer Screening [facility] Start: 02-04-2025 Depression Monitoring Depression Monitoring [facility] Start: 12-05-2024 Depression Monitoring Depression Monitoring [facility] Start: 11-30-2024 Influenza vaccination Influenza Vaccine (Season Ended) [facility] Start: 11-05-2024 Depression Monitoring Depression Monitoring [facility] Start: 10-21-2024 End: 10-21-2024 Patient encounter procedure 10/21/2024 3:20 PM EDT Office Visit [facility] [address] [place] [phone] Lynda Rasheed MD [address] [place], [place] [phone] [facility] Start: 08-14-2024 End: 08-14-2024 Patient encounter procedure 08/14/2024 9:40 AM EDT Office Visit [facility] [address] [place] [phone] Lynda Rasheed MD [address] [place], [place] [address] [facility] [place] Start: 08-13-2024 End: 08-13-2024 Patient encounter procedure 08/13/2024 1:30 PM EDT Appointment [facility] [address] [place] [phone] Luis Branch MD [address] [address] Ammon Abdul, [facility] Start: 07-28-2024 Depression Monitoring Depression Monitoring [facility] Start: 07-20-2024 Depression Monitoring Depression Monitoring [facility] Start: 06-19-2024 End: 06-19-2024 Patient encounter procedure 06/19/2024 1:40 PM EDT Office Visit [facility] [address] [place] [phone] Yasemin Quintero, PROFESSOR OF FLORICULTURE - GAUGER DELIVERY [address] [place] [address] [facility] Start: 06-16-2024 End: 06-16-2025 Erythrocyte sedimentation rate Sedimentation rate, automated Lab Routine Lumbar back pain Expected: 06/16/2024 (Approximate), Expires: 06/16/2025 [facility] Comment on above: Expected: 06/16/2024 (Approximate), Expi res: 06/16/2025 Start: 06-16-2024 End: 06-16-2025 Nuclear Ab [Titer] in Serum by Immunofluorescence [facility] Lab Routine Lumbar back pain Expected: 06/16/2024 (Approximate), Expires: 06/16/2025 [facility] Comment on above: Expected: 06/16/2024 (Approximate), Expi res: 06/16/2025 Start: 06-16-2024 End: 06-16-2024 Patient encounter procedure 06/16/2024 2:00 PM EDT Office Visit [facility] [address] [place] [address] Lynda Rasheed MD [address] [place], [place] [address] [facility] Start: 06-16-2024 End: 06-16-2025 Rheumatoid factor [Units/volume] in Serum or Plasma Rheumatoid factor Lab Routine Lumbar back pain Expected: 06/16/2024 (Approximate), Expires: 06/16/2025 [facility] Comment on above: Expected: 06/16/2024 (Approximate), Expi res: 06/16/2025 Start: 06-16-2024 End: 06-16-2025 XR Lumbar spine Views W flexion and W extension XR lumbar spine 4-5 view Imaging Routine Lumbar back pain Expected: 06/16/2024, Expires: 06/16/2025 [facility] System Work Phone: Comment on above: Expected: 06/16/2024, Expires: Start: 06-11-2024 End: 06-11-2024 Patient encounter procedure 06/11/2024 4:15 PM EDT Appointment [facility] CT [address] [place] [phone] Myra Dadren MD [address] [place] [phone] [facility] CT Start: 06-11-2024 Subsequent hospital visit by physician 06/11/2024 4:15 PM EDT Hospital Encounter [facility] CT [address] [place] [address] Myra Darden MD [address] [place] [address] [phone] [facility] CT Start: 06-05-2024 End: 06-05-2024 Patient encounter procedure 06/05/2024 10:20 AM EST Office Visit [facility] Lung Nodule [facility] [address] [place] [phone] Kristin Lara APRN - JAMAL [address] [place] [address] [phone] [facility] Lung Nodule [facility] Start: 05-29-2024 End: 05-29-2024 Patient encounter procedure 05/29/2024 3:30 PM EST Appointment [facility] CT Imaging [address] [place] [address] Myra Darden MD [address] [place] [phone] [facility] CT Imaging Start: 05-29-2024 End: 02-27-2025 CT Chest WO contrast CT chest wo IV contrast Imaging Routine Pulmonary nodule Expected: 05/29/2024, Expires: 02/27/2025 [facility] [employer] System Work Phone: Comment on above: Expected: 05/29/2024, Expires: Start: 05-20-2024 End: 05-20-2025 Bacteria identified in Urine by Culture Urine culture (clean catch) Microbiology Routine ED (erectile dysfunction) of non-organic origin Urinary frequency Expected: 05/20/2024 (Approximate), Expires: 05/20/2025 [facility] Comment on above: Expected: 05/20/2024 (Approximate), Expi res: 05/20/2025 Start: 05-20-2024 End: 05-20-2025 CBC W Auto Differential panel - Blood CBC auto differential Lab Routine Psoriasiform seborrheic dermatitis Elevated liver enzymes Expected: 05/20/2024 (Approximate), Expires: 05/20/2025 [facility] System Work Phone: Comment on above: Expected: 05/20/2024 (Approximate), Expi res: 05/20/2025 Start: 05-20-2024 End: 05-20-2025 Urinalysis complete panel - Urine Urinalysis with reflex microscopic (clean catch) Lab Routine ED (erectile dysfunction) of non-organic origin Urinary frequency Expected: 05/20/2024 (Approximate), Expires: 05/20/2025 [facility] Comment on above: Expected: 05/20/2024 (Approximate), Expi res: 05/20/2025 Start: 05-20-2024 End: 05-20-2025 US Abdomen US abdomen complete Imaging Routine Elevated LFTs Expected: 05/20/2024, Expires: 05/20/2025 [facility] Comment on above: Expected: 05/20/2024, Expires: Start: 05-20-2024 End: 05-20-2024 Patient encounter procedure 05/20/2024 1:00 PM EST Office Visit [facility] [address] [place] [address] Lynda Rasheed MD [address] [place], [place] [address] [facility] Start: 05-08-2024 End: 05-08-2024 Patient encounter procedure 05/08/2024 8:00 AM EST Office Visit [facility] [address] [place] [phone] Lynda Rasheed MD [address] [place], [place] [address] [facility] Start: 04-24-2024 End: 04-24-2024 Patient encounter procedure 04/24/2024 11:00 AM EST Office Visit [facility] [address] [place] [phone] Lynda Rasheed MD [address] [place], [place] [address] [facility] Start: 03-26-2024 End: 03-26-2024 Patient encounter procedure 03/26/2024 5:30 PM EST Appointment [facility] [address] [place] [phone] Luis Branch MD [address] [phone] Inés Hooper [facility] Start: 03-24-2024 End: 03-24-2024 Patient encounter procedure 03/24/2024 5:30 PM EST Appointment [facility] [address] [place] [phone] Luis Branch MD [address] [address] Inés Hooper [facility] Start: 03-23-2024 End: 03-23-2024 Patient encounter procedure 03/23/2024 5:30 PM EST Appointment [facility] [address] [place] [phone] Luis Branch MD [address] [phone] Inés Hooper [facility] Start: 03-19-2024 End: 03-19-2024 Patient encounter procedure 03/19/2024 5:30 PM EST Appointment [facility] [address] [place] [address] Luis Branch MD [address] [address] Inés Hooper [facility] Start: 03-17-2024 End: 03-17-2024 Patient encounter procedure 03/17/2024 5:30 PM EST Appointment [facility] [address] [place] [address] Luis Branch MD [address] [address] Inés Hooper [facility] Start: 03-16-2024 End: 03-16-2024 Patient encounter procedure 03/16/2024 5:30 PM EST Appointment [facility] [address] [place] [address] Luis Branch MD [address] [address] Inés Hooper [facility] Start: 03-12-2024 End: 03-12-2024 Patient encounter procedure 03/12/2024 5:30 PM EST Appointment [facility] [address] [place] [address] Luis Branch MD [address] [address] Inés Hooper [facility] Start: 03-10-2024 End: 03-10-2024 Patient encounter procedure 03/10/2024 5:30 PM EST Appointment [facility] [address] [place] [address] Luis Branch MD [address] [address] Inés Hooper [facility] Start: 03-09-2024 End: 03-09-2024 Patient encounter procedure 03/09/2024 5:30 PM EST Appointment [facility] [address] [place] [address] Luis Branch MD [address] [address] Inés Hooper [facility] Start: 03-05-2024 End: 03-05-2024 Patient encounter procedure 03/05/2024 5:30 PM EST Appointment [facility] [address] [place] [address] Luis Branch MD [address] [address] Inés Hooper [facility] Start: 03-03-2024 End: 03-03-2024 Patient encounter procedure 03/03/2024 5:30 PM EST Appointment [facility] [address] [place] [address] Luis Branch MD [address] [address] Inés Hooper [facility] Start: 03-02-2024 End: 03-02-2024 Patient encounter procedure 03/02/2024 5:30 PM EST Appointment [facility] [address] [place] [phone] Luis Branch MD [address] [address] Inés Hooper [facility] Start: 02-28-2024 End: 02-28-2024 Patient encounter procedure 02/28/2024 9:30 AM EST Office Visit [facility] Lung Nodule [facility] [address] [place] [phone] Myra Darden MD [address] [place] [address] [facility] Lung [facility] Start: 02-27-2024 End: 02-27-2024 Patient encounter procedure 02/27/2024 5:30 PM EST Appointment [facility] [address] [place] [address] Luis Branch MD [address] [address] Inés Hooper [facility] Start: 02-25-2024 End: 02-25-2024 Patient encounter procedure 02/25/2024 5:30 PM EST Appointment [facility] [address] [place] [address] Luis Branch MD [address] [address] Inés Hooper [facility] Start: 02-24-2024 End: 02-24-2024 Patient encounter procedure 02/24/2024 5:30 PM EST Appointment [facility] [address] [place] [address] Luis Branch MD [address] [address] Inés Hooper [facility] Start: 02-20-2024 End: 02-20-2024 Patient encounter procedure 02/20/2024 5:30 PM EST Appointment [facility] [address] [place] [address] Luis Branch MD [address] [address] Inés Hooper [facility] Start: 02-18-2024 End: 02-18-2024 Patient encounter procedure 02/18/2024 5:30 PM EST Appointment [facility] [address] [place] [address] Luis Branch MD [address] [address] Inés Hooper [facility] Start: 02-17-2024 End: 02-17-2024 Patient encounter procedure 02/17/2024 5:30 PM EST Appointment [facility] [address] [place] [address] Luis Branch MD [address] [address] Inés Hooper [facility] Start: 02-15-2024 Lipid panel Lipid screen [place], [place] Start: 02-15-2024 Lipid screen Lipid screen [place], [place] Start: 02-13-2024 End: 02-13-2024 Patient encounter procedure 02/13/2024 5:30 PM EST Appointment [facility] [address] [place] [address] Luis Branch MD [address] [address] Inés Hooper [facility] Start: 02-12-2024 End: 02-12-2024 Patient encounter procedure 02/12/2024 2:00 PM EST Office Visit [facility] [employer] [facility] [address] [place] [phone] Robyn Edmond APRN - CNP [address] [place] [address] [facility] [employer] [facility] [place] Start: 02-11-2024 End: 02-11-2024 Patient encounter procedure 02/11/2024 5:30 PM EST Appointment [facility] [address] [place] [address] Luis Branch MD [address] [address] Inés Hooper [facility] Start: 02-10-2024 End: 02-10-2024 Patient encounter procedure 02/10/2024 5:30 PM EST Appointment [facility] [address] [place] [address] Luis Branch MD [address] [address] Inés Hooper [facility] Start: 02-06-2024 End: 02-06-2024 Patient encounter procedure 02/06/2024 5:30 PM EST Appointment [facility] [address] [place] [address] Luis Branch MD [address] [phone] Inés Hooper [facility] Start: 02-05-2024 End: 02-04-2025 Comprehensive metabolic 1998 panel - Serum or Plasma Comprehensive metabolic panel Lab Routine Psoriasiform seborrheic dermatitis Elevated liver enzymes Expected: 02/05/2024 (Approximate), Expires: 02/04/2025 [facility] [employer] [facility] Work Phone: Comment on above: Expected: 02/05/2024 (Approximate), Expi res: 02/04/2025 Start: 02-05-2024 End: 02-04-2025 CT Chest for screening WO contrast CT lung screening low dose Imaging Routine Current smoker Expected: 02/05/2024, Expires: 02/04/2025 [facility] Comment on above: Expected: 02/05/2024, Expires: Start: 02-05-2024 End: 02-04-2025 Lipid 1996 panel - Serum or Plasma Lipid panel Lab Routine Psoriasiform seborrheic dermatitis Elevated liver enzymes Expected: 02/05/2024 (Approximate), Expires: 02/04/2025 [facility] Comment on above: Expected: 02/05/2024 (Approximate), Expi res: 02/04/2025 Start: 02-05-2024 End: 02-04-2025 PSA screening PSA Screening Lab Routine Psoriasiform seborrheic dermatitis Elevated liver enzymes Screening PSA (prostate specific antigen) Expected: 02/05/2024 (Approximate), Expires: 02/04/2025 [facility] Comment on above: Expected: 02/05/2024 (Approximate), Expi res: 02/04/2025 Start: 02-05-2024 End: 02-05-2024 Patient encounter procedure 02/05/2024 1:30 PM EST Appointment [facility] [address] [place] [address] Luis Branch MD [address] [address] [facility] Start: 02-05-2024 End: 02-05-2024 Patient encounter procedure 02/05/2024 8:20 AM EST Office Visit [facility] [address] [place] [phone] Lynda Rasheed MD [address] [place], [place] [id number] [facility] [facility] Start: 02-03-2024 End: 02-03-2024 Patient encounter procedure 02/03/2024 5:30 PM EST Appointment [facility] [address] [place] [phone] Luis Branch MD [address] [facility] [address] [place] [id number] Inés Hooper [facility] Start: 01-28-2024 End: 01-28-2024 Patient encounter procedure 01/28/2024 1:30 PM EDT Appointment [facility] [address] [place] [phone] Luis Branch MD [address] [place] [address] Ammon Abdul [facility] Start: 01-26-2024 Depression Monitoring Depression Monitoring [facility] Start: 01-08-2024 Depresssion Monitoring Depresssion Monitoring [facility] Start: 12-17-2023 End: 12-17-2023 Patient encounter procedure [facility] Start: 12-11-2023 End: 12-11-2023 Patient encounter procedure 12/11/2023 1:00 PM EDT Appointment [facility] [address] [place] [phone] Yakov Owen MD [address] [place] [address] Rosalee Hamilton [facility] Start: 12-06-2023 End: 12-06-2023 Patient encounter procedure 12/06/2023 10:00 AM EDT Office Visit [facility] Behavioral Health [address] [place] [phone] Luis Branch MD [address] [place] [address] [facility] Start: 12-01-2023 COVID-19 Vaccine ( season) COVID-19 Vaccine ( season) [facility] Start: 12-01-2023 COVID-19 Vaccine ( season) COVID-19 Vaccine ( season) [facility] Start: 12-01-2023 Influenza vaccination [facility] Start: 11-02-2023 Diabetes mellitus screening Diabetes Screening [facility] Start: 09-26-2023 Pneumococcal Vaccine: 50+ Years (2 of 2 - PCV) Pneumococcal Vaccine: 50+ Years (2 of 2 - PCV) [facility] Start: 09-26-2023 Pneumococcal Vaccine: Pediatrics (0 to 5 Years) and At-Risk Patients (6 to 64 Years) (2 - PCV) Pneumococcal Vaccine: Pediatrics (0 to 5 Years) and At-Risk Patients (6 to 64 Years) (2 - PCV) [facility] Start: 09-26-2023 Pneumococcal Vaccine: Pediatrics (0 to 5 Years) and At-Risk Patients (6 to 64 Years) (2 of 2 - PCV) Pneumococcal Vaccine: Pediatrics (0 to 5 Years) and At-Risk Patients (6 to 64 Years) (2 of 2 - PCV) [facility] Start: 08-09-2023 Depresssion Monitoring Depresssion Monitoring [facility] Start: 08-05-2023 End: 08-05-2023 Patient encounter procedure 08/05/2023 1:00 PM EDT Appointment [facility] [address] [place] [address] Dori Franco MD [address] [place] [address] [address] [place] [phone] Kyle Gold LPCC [facility] Start: 07-10-2023 Lipid panel Lipid Panel [facility] Start: 07-04-2023 End: 07-04-2023 Patient encounter procedure 07/04/2023 1:40 PM EDT Office Visit [facility] Family Medicine [address] [place] [address] Lynda Rasheed MD [address] [place], [place] [phone] [facility] Start: 06-06-2023 End: 06-06-2023 Patient encounter procedure 06/06/2023 1:30 PM EST Appointment [facility] [address] [place] [phone] Dori Franco MD [address] [place] [address] [address] [place] [phone] Ammon Abdul, [facility] Start: 04-11-2023 Depresssion Monitoring Depresssion Monitoring [facility] Start: 04-03-2023 End: 04-03-2023 Patient encounter procedure [facility] Start: 03-12-2023 Depresssion Monitoring Depresssion Monitoring [facility] Start: 01-09-2023 End: 10-10-2023 Comprehensive metabolic 1998 panel - Serum or Plasma Comprehensive metabolic panel Lab Routine Alcohol use disorder, severe (HCC) Alcohol withdrawal syndrome with complication (HCC) Encounter for monitoring naltrexone therapy Expected: 01/09/2023 (Approximate), Expires: 10/10/2023 [facility] Work Phone: Comment on above: Expected: 01/09/2023 (Approximate), Expi res: 10/10/2023 Start: 12-26-2022 End: 12-26-2022 Patient encounter procedure [facility] Start: 11-30-2022 COVID-19 Vaccine ( season) COVID-19 Vaccine () [facility] Start: 11-30-2022 Influenza vaccination [facility] Start: 11-13-2022 End: 11-13-2022 Patient encounter procedure 11/13/2022 1:00 PM EDT Office Visit [facility] General Surgery [address] [facility] [address] [place] [phone] Mack Hill MD [address] [facility] [address] [place], [place] [phone] [facility] General Surgery Start: 11-09-2022 End: 11-09-2022 Patient encounter procedure 11/09/2022 1:00 PM EDT Appointment [facility] Non-Invasive Cardiology [address] [place] [phone] [facility] Non-Invasive Cardiology Start: 11-06-2022 End: 11-06-2022 Patient encounter procedure 11/06/2022 4:00 PM EDT Office Visit [facility] [address] [place] [phone] Papito Hood MD [address] [place] [address] [facility] Start: 10-09-2022 End: 10-09-2022 Patient encounter procedure 10/09/2022 9:00 AM EDT Office Visit [facility] [address] [facility] [address] [place] [phone] Papito Hood MD [address] [place] [address] [facility] Start: 10-01-2022 End: 10-02-2023 Cobalamin (Vitamin B12) [Mass/volume] in Serum or Plasma Vitamin B12 Lab Routine Hyperglycemia Abnormal CBC Expected: 10/01/2022 (Approximate), Expires: 10/02/2023 [facility] Work Phone: Comment on above: Expected: 10/01/2022 (Approximate), Expi res: 10/02/2023 Start: 10-01-2022 End: 10-02-2023 Hemoglobin A1c/Hemoglobin.total in Blood Hemoglobin A1c Lab Routine Hyperglycemia Abnormal CBC Expected: 10/01/2022 (Approximate), Expires: 10/02/2023 [facility] [employer] Comment on above: Expected: 10/01/2022 (Approximate), Expi res: 10/02/2023 Start: 10-01-2022 End: 10-02-2023 Iron and Iron binding capacity panel - Serum or Plasma Iron level Lab Routine Hyperglycemia Abnormal CBC Expected: 10/01/2022 (Approximate), Expires: 10/02/2023 [email or web address] Comment on above: Expected: 10/01/2022 (Approximate), Expi res: 10/02/2023 Start: 09-25-2022 End: 09-26-2023 CBC W Auto Differential panel - Blood CBC auto differential Lab Routine Elevated liver enzymes Expected: 09/25/2022 (Approximate), Expires: 09/26/2023 [facility] Work Phone: Comment on above: Expected: 09/25/2022 (Approximate), Expi res: 09/26/2023 Start: 09-25-2022 End: 09-26-2023 Comprehensive metabolic 1998 panel - Serum or Plasma Comprehensive metabolic panel Lab Routine Elevated liver enzymes Expected: 09/25/2022 (Approximate), Expires: 09/26/2023 [facility] Comment on above: Expected: 09/25/2022 (Approximate), Expi res: 09/26/2023 Start: 09-25-2022 End: 09-26-2023 Hepatitis 1996 panel - Serum Hepatitis panel, acute Lab Routine Elevated liver enzymes Expected: 09/25/2022 (Approximate), Expires: 09/26/2023 [facility] Comment on above: Expected: 09/25/2022 (Approximate), Expi res: 09/26/2023 Start: 09-25-2022 End: 09-25-2022 Patient encounter procedure [facility] Start: 09-19-2022 End: 09-19-2022 Patient encounter procedure 09/19/2022 8:30 AM EDT Appointment [facility] [address] [place] [phone] Aurora Aparicio LPCC [facility] Start: 08-01-2022 End: 08-02-2023 Comprehensive metabolic 1998 panel - Serum or Plasma Comprehensive metabolic panel Lab Routine SOB (shortness of breath) Expected: 08/01/2022 (Approximate), Expires: 08/02/2023 [facility] Comment on above: Expected: 08/01/2022 (Approximate), Expi res: 08/02/2023 Start: 08-01-2022 End: 08-01-2024 US Heart Transthoracic Transthoracic echocardiogram (TTE) complete with contrast, bubble, strain, and 3D PRN CV Echocardiography Routine Abnormal EKG Expected: 08/01/2022 (Approximate), Expires: 08/01/2024 [facility] Work Phone: Comment on above: Expected: 08/01/2022 (Approximate), Expi res: 08/01/2024 Start: 08-01-2022 End: 08-02-2023 XR Chest 2 Views XR chest 2 views Imaging Routine SOB (shortness of breath) Expected: 08/01/2022, Expires: 08/02/2023 [email or web address] Comment on above: Expected: 08/01/2022, Expires: Start: 08-01-2022 End: 08-01-2022 Patient encounter procedure 08/01/2022 Office Visit Family Medicine Lynda Rasheed MD [address] [place] [address] [facility] Start: 07-23-2022 End: 07-23-2022 Esophagogastroduodenoscopy transoral diagnostic EGD DIAGNOSTIC Hematemesis, unspecified whether nausea present 07/23/2022 9:34 AM EDT [facility] Gastroenterology Start: 07-11-2022 End: 07-12-2023 Hemoglobin A1c/Hemoglobin.total in Blood Hemoglobin A1c Lab Routine Hyperglycemia Expected: 07/11/2022 (Approximate), Expires: 07/12/2023 [facility] Work Phone: Comment on above: Expected: 07/11/2022 (Approximate), Expi res: 07/12/2023 Start: 07-09-2022 End: 07-10-2023 XR Shoulder - right 2 Views XR shoulder 2+ views right Imaging Routine Low back pain, unspecified Pain in left shoulder Other chronic pain Pain in right shoulder Expected: 07/09/2022, Expires: 07/10/2023 [employer] Work Phone: Comment on above: Expected: 07/09/2022, Expires: Start: 06-12-2022 End: 06-13-2023 CBC W Auto Differential panel - Blood CBC auto differential Lab Routine Elevated liver enzymes Expected: 06/12/2022 (Approximate), Expires: 06/13/2023 [employer] Comment on above: Expected: 06/12/2022 (Approximate), Expi res: 06/13/2023 Start: 06-12-2022 End: 06-13-2023 Comprehensive metabolic 1998 panel - Serum or Plasma Comprehensive metabolic panel Lab Routine Elevated liver enzymes Expected: 06/12/2022 (Approximate), Expires: 06/13/2023 [facility] Comment on above: Expected: 06/12/2022 (Approximate), Expi res: 06/13/2023 Start: 06-12-2022 End: 06-13-2023 Lipid 1996 panel - Serum or Plasma Lipid panel Lab Routine Elevated liver enzymes Expected: 06/12/2022 (Approximate), Expires: 06/13/2023 [facility] Comment on above: Expected: 06/12/2022 (Approximate), Expi res: 06/13/2023 Start: 06-12-2022 End: 06-13-2023 PSA screening [facility] Comment on above: Expected: 06/12/2022 (Approximate), Expi res: 06/13/2023 Start: 06-12-2022 End: 06-13-2023 XR Lumbar spine 4 Views XR lumbar spine complete 4+ views Imaging Routine Lumbar back pain Expected: 06/12/2022, Expires: 06/13/2023 [facility] Comment on above: Expected: 06/12/2022, Expires: 4 Start: 06-12-2022 End: 06-13-2023 XR Shoulder - left 2 Views XR shoulder 2+ views left Imaging Routine Chronic left shoulder pain Expected: 06/12/2022, Expires: 06/13/2023 [facility] Work Phone: Comment on above: Expected: 06/12/2022, Expires: 4 Start: 06-12-2022 End: 06-13-2023 XR Shoulder - right 2 Views XR shoulder 2+ views right Imaging Routine Chronic pain of both shoulders Expected: 06/12/2022, Expires: 06/13/2023 [facility] Comment on above: Expected: 06/12/2022, Expires: Start: 11-30-2021 Influenza vaccination [facility] Start: 09-01-2021 Lipid panel [facility] Start: 06-23-2021 End: 06-23-2021 Patient encounter procedure 06/23/2021 Office Visit Family Medicine Lynda Rasheed MD [address] [place] [phone] [facility] Start: 05-04-2021 COVID-19 Vaccine (4 - Booster for Pfizer series) COVID-19 Vaccine (4 - Booster for Pfizer series) [facility] Start: 05-04-2021 COVID-19 Vaccine (4 - Pfizer series) COVID-19 Vaccine (4 - Pfizer series) [facility] Start: 12-15-2020 End: 12-15-2020 Patient encounter procedure 12/15/2020 Appointment IP Unit Soteor Madsen MD [address] [place], [place] [address] [place] [address] [facility] Start: 11-30-2020 Influenza vaccination [facility] Work Phone: Start: 11-22-2020 End: 11-22-2020 Telemedicine consultation with patient 11/22/2020 Telemedicine Family Medicine Lynda Rasheed MD [address] [place] [address] [facility] Start: 09-13-2020 End: 09-13-2020 Patient encounter procedure 09/13/2020 Office Visit General Surgery Sotero Madsen MD [address] [place] [address] [place] [address] Gen Surg - SDD Start: 12-01-2019 Influenza vaccination Flu vaccine (#1) [place], [place] Start: 06-15-2019 End: 06-15-2019 Office Visit 06/15/2019 Office Visit Family Medicine Lynda Rasheed MD [address] [place] [address] [facility] Start: 01-24-2018 Pneumococcal 0-64 years Vaccine (2 - PCV) Pneumococcal 0-64 years Vaccine (2 - PCV) [facility] Start: 01-24-2018 Pneumococcal Vaccine: Pediatrics (0 to 5 Years) and At-Risk Patients (6 to 64 Years) (2 - PCV) Pneumococcal Vaccine: Pediatrics (0 to 5 Years) and At-Risk Patients (6 to 64 Years) (2 - PCV) [facility] Start: 11-14-2017 Colon cancer screen colonoscopy Colon cancer screen colonoscopy [place], [place] Start: 11-14-2017 Screening for malignant neoplasm of colon Colon cancer screen colonoscopy [place], [place] Start: 11-14-2017 Screening for malignant neoplasm of lung [facility] Start: 11-14-2017 Shingles Vaccine (1 of 2) Shingles Vaccine (1 of 2) [facility] Start: 11-14-2017 Zoster Vaccines (1 of 2) Zoster Vaccines (1 of 2) [facility] Start: 11-14-2012 Screening for malignant neoplasm of colon [facility] Start: 2007 Diabetes screen Diabetes screen [facility] Work Phone: Start: 11-14-2002 Diabetes screen Diabetes screen [facility] Start: 11-14-1986 DTaP/Tdap/Td vaccine (1 - Tdap) DTaP/Tdap/Td vaccine (1 - Tdap) [facility] Start: 11-14-1986 DTaP/Tdap/Td Vaccines (1 - Tdap) DTaP/Tdap/Td Vaccines (1 - Tdap) [facility] Start: 11-14-1986 Hepatitis A Vaccines (1 of 2 - Risk 2-dose series) Hepatitis A Vaccines (1 of 2 - Risk 2-dose series) [facility] Start: 11-14-1986 Hepatitis B Vaccines (1 of 3 - 19+ 3-dose series) Hepatitis B Vaccines (1 of 3 - 19+ 3-dose series) [facility] Start: 11-14-1985 Diabetes mellitus screening Diabetes Screening [facility] Start: 1983 COVID-19 Vaccine (1) COVID-19 Vaccine (1) [facility] Work Phone: Start: 1979 Depression Monitoring Depression Monitoring [facility] Start: 1979 Depresssion Monitoring Depresssion Monitoring [facility] Start: 11-14-1978 DTaP/Tdap/Td vaccine (1 - Tdap) DTaP/Tdap/Td vaccine (1 - Tdap) [place], [place] Start: 11-14-1977 Diabetic foot examination Diabetes: Foot Exam [facility] Start: 11-14-1977 Glaucoma screening Diabetes: Retinopathy Screening [facility] Start: 11-14-1977 Preventive dental service Diabetes: Dental Exam [facility] Start: 11-14-1968 Hepatitis A Vaccines (1 of 2 - Risk 2-dose series) Hepatitis A Vaccines (1 of 2 - Risk 2-dose series) [facility] Start: 11-14-1968 MMR Vaccines (1 of 1 - Standard series) MMR Vaccines (1 of 1 - Standard series) [facility] Start: 1967 Hemoglobin A1c measurement Diabetes: Hemoglobin A1C [facility] Start: 1967 Hepatitis B Vaccines (1 of 3 - 3-dose series) Hepatitis B Vaccines (1 of 3 - 3-dose series) [facility] Start: 1967 HIV screening HIV Screening [facility] Start: 1967 Screening for malignant neoplasm of colon [facility] End: 06-10-2020 Anti-smooth muscle antibody Anti-smooth muscle antibody Lab Routine Tomorrow AM for 1 Occurrences starting 06/10/2020 until 06/10/2020 [facility] Work Phone: Comment on above: Tomorrow AM for 1 Occurrences starting 0 06/10/2020 until 06/10/2020 Anti-smooth muscle antibody Anti -smooth muscle antibody Lab Routine 06/10/2020 3:08 AM EST [facility] Work Phone: Basic Metabolic Pane l w/ Reflex to MG Basic Metabolic Panel w/ Reflex to MG Lab Routine Daily until discontinued starting 06/10/2020, 1 completed [facility] Work Phone: Comment on above: Daily until discontinued starting 2020, 1 completed End: 05-20-2023 Blood gases, venous measurement Blood gas, venous Lab STAT Once (Lab) for 1 Occurrences starting 05/20/2023 until 05/20/2023 [facility] Work Phone: Comment on above: Once (Lab) for 1 Occurrences starting until 05/20/2023 End: 06-10-2020 Blood glucose - POCT Blood glucose - POCT Point of Care Testing Routine One Time for 1 Occurrences starting 06/10/2020 until 06/10/2020 [facility] Work Phone: Comment on above: One Time for 1 Occurrences starting 05/30 until 06/10/2020 CBC auto differential CBC auto d ifferential Lab Routine Daily until discontinued starting 06/10/2020, 1 completed [employer] Work Phone: Comment on above: Daily until discontinued starting 2020, 1 completed CBC W Auto Different ial panel - Blood CBC with Auto Differential Lab Routine Daily until discontinued starting 09/29/2021, 1 completed [employer] Work Phone: Comment on above: Daily until discontinued starting 2021, 1 completed End: 06-10-2020 CERULOPLASMIN CERULOPLASMIN Lab Routine Tomorrow AM for 1 Occurrences starting 06/10/2020 until 06/10/2020 [employer] Work Phone: Comment on above: Tomorrow AM for 1 Occurrences starting 0 06/10/2020 until 06/10/2020 CERULOPLASMIN CERULOPLASMIN La b Routine 06/10/2020 3:08 AM EST [employer] Work Phone: Cologuard colon canc er screening Cologuard colon cancer screening Lab Routine Screening for colon cancer Ordered: 08/14/2024 [employer] Work Phone: Comment on above: Ordered: 08/14/2024 Complete PFT study Complete PFT study PFT Routine SOB (shortness of breath) Ordered: 08/01/2022 [employer] Comment on above: Ordered: 08/01/2022 Comprehensive metabo lic 2000 panel - Serum or Plasma Comprehensive Metabolic Panel Lab Routine Daily until discontinued starting 09/29/2021, 1 completed [employer] Work Phone: Comment on above: Daily until discontinued starting 2021, 1 completed End: 02-11-2024 CT Chest for screening WO contrast [employer] Work Phone: Comment on above: Once for 1 Occurrences starting 02/11/20 24 until 02/11/2024 End: 06-11-2024 CT Chest WO contrast [employer] Work Phone: Comment on above: Once for 1 Occurrences starting 06/12/19 25 until 06/11/2024 End: 10-10-2023 Drug screen panel, emergency Drug screen panel, emergency Lab Routine Alcohol withdrawal syndrome with complication (HCC) Encounter for monitoring naltrexone therapy Every 4 weeks for 6 Occurrences starting 10/09/2022 until 10/10/2023 [employer] Comment on above: Every 4 weeks for 6 Occurrences starting 10/09/2022 until 10/10/2023 End: 05-07-2024 Extra Tubes Extra Tubes Lab Routine Once (Lab) for 1 Occurrences starting 05/07/2024 until 05/07/2024 [facility] [employer] Work Phone: Comment on above: Once (Lab) for 1 Occurrences starting until 05/07/2024 Hemoglobin and Hematocrit Hemogl obin and Hematocrit Lab Routine 06/07/2021 2:21 AM EST [employer] Work Phone: End: 09-29-2021 Hemoglobin and Hematocrit Hemoglobin and Hematocrit Lab Timed Every 6 Hours (Lab) for 2 Days starting 09/27/2021 until 09/29/2021, 1 completed [employer] Work Phone: Comment on above: Every 6 Hours (Lab) for 2 Days starting 09/27/2021 until 09/29/2021, 1 completed Hemoglobin and Hematocrit Hemogl obin and Hematocrit Lab Timed 09/27/2021 1:42 AM EDT [employer] Work Phone: Hepatic function panel Hepatic f unction panel Lab Routine Daily until discontinued starting 06/10/2020, 1 completed [employer] Work Phone: Comment on above: Daily until discontinued starting 2020, 1 completed End: 06-10-2020 Intermittent pulse oximetry Pulse Oximetry Spot Check Respiratory Care Routine One Time for 1 Occurrences starting 06/10/2020 until 06/10/2020 [employer] Work Phone: Comment on above: One Time for 1 Occurrences starting 05/30 until 06/10/2020 End: 06-10-2020 Nuclear Ab IF (S) [Titer] CHULA Lab Routine Tomorrow AM for 1 Occurrences starting 06/10/2020 until 06/10/2020 [employer] Work Phone: Comment on above: Tomorrow AM for 1 Occurrences starting 0 06/10/2020 until 06/10/2020 Nuclear Ab IF (S) [Titer] CHULA La b Routine 06/10/2020 3:08 AM EST [employer] Work Phone: OUTSIDE PROCEDURE SCAN OUTSIDE P ROCEDURE SCAN Procedures Ordered: 07/09/2022 [facility] Comment on above: Ordered: 07/09/2022 OUTSIDE PROCEDURE SCAN OUTSIDE P ROCEDURE SCAN Procedures Ordered: 09/29/2022 [employer] Comment on above: Ordered: 09/29/2022 OUTSIDE PROCEDURE SCAN OUTSIDE P ROCEDURE SCAN Procedures Ordered: 11/01/2022 [employer] Comment on above: Ordered: 11/01/2022 Oxygen therapy [Mini mum Data Set] Initiate Oxygen Therapy Protocol Respiratory Care Routine Daily until discontinued starting 06/09/2020 [employer] Work Phone: Comment on above: Daily until discontinued starting 2020 Oxygen therapy [Mini mum Data Set] Initiate Oxygen Therapy Protocol Respiratory Care Routine As Needed until discontinued starting 06/07/2021 [employer] Work Phone: Comment on above: As Needed until discontinued starting Oxygen therapy [Mini mum Data Set] Initiate Oxygen Therapy Protocol Respiratory Care Routine As Needed until discontinued starting 09/26/2021 [employer] Phone: Comment on above: As Needed until discontinued starting Oxygen therapy [Mini mum Data Set] Initiate Oxygen Therapy Protocol Respiratory Care Routine As Needed until discontinued starting 09/27/2021 [employer] Phone: Comment on above: As Needed until discontinued starting End: 05-07-2024 Pale Yellow Top Pale Yellow Top Lab Timed Once for 1 Occurrences starting 05/07/2024 until 05/07/2024 [employer] Comment on above: Once for 1 Occurrences starting 05/07/19 until 05/07/2024 End: 05-07-2024 Red Top Red Top Lab Timed Once for 1 Occurrences starting 05/07/2024 until 05/07/2024 [employer] Comment on above: Once for 1 Occurrences starting 05/07/19 until 05/07/2024 End: 06-10-2020 Surgical Pathology Surgical Pathology Lab STAT Once for 1 Occurrences starting 06/10/2020 until 06/10/2020 [employer] Work Phone: Comment on above: Once for 1 Occurrences starting 06/11/19 21 until 06/10/2020 Surgical Pathology Surgical Path ology Lab STAT 06/10/2020 8:49 AM EST [employer] Work Phone: End: 05-08-2024 Transferrin.carbohydrate deficient/Transferrin.total in Serum or Plasma [facility] [employer] Work Phone: Comment on above: Once (Lab) for 1 Occurrences starting until 05/08/2024 End: 06-07-2021 VL Mesenteric Artery Duplex Scan VL Mesenteric Artery Duplex Scan Imaging Routine Once for 1 Occurrences starting 06/07/2021 until 06/07/2021 [employer] Work Phone: Comment on above: Once for 1 Occurrences starting 06/08/19 22 until 06/07/2021 End: 07-09-2022 XR Lumbar spine 4 Views [facility] [employer] Work Phone: Comment on above: Once for 1 Occurrences starting 07/10/19 23 until 07/09/2022 Immunizations Immunization Date Immunization Notes Care Provider [facility] 09-25-2022 pneumococcal polysaccharide vaccine, 23 valent Lynda Rasheed MD Work Phone: [facility] [employer] 03-09-2021 Pfizer SARS-CoV-2 Vaccination Rosalina HOOKS Work Phone: [facility] 02-16-2021 influenza, injectabl e, quadrivalent, preservative free Joon Sheikh MD Work Phone: [facility] 02-16-2021 influenza virus vacc ine, unspecified formulation Rosalina HOOKS Work Phone: [facility] 07-22-2020 Pfizer SARS-CoV-2 Vaccination Rosalina HOOKS Work Phone: [facility] 06-30-2020 Pfizer SARS-CoV-2 Vaccination Rosalina HOOKS Work Phone: [facility] 01-12-2019 influenza, injectabl e, quadrivalent, contains preservative Lynda Rasheed [facility] 01-24-2017 Influenza, injectabl e, Madin Huntington Canine Kidney, quadrivalent with preservative Lynda Rasheed [place], [place] 01-24-2017 pneumococcal polysaccharide vaccine, 23 valent Lynda Rasheed [facility] Payers Date Payer Category Payer Medicaid HMO [id number] 2018 Medicaid [id number] 2017 Unknown [id number] 2016 Unknown [id number] 2016 Unknown [facility] xxxxxxxxxxxx 2016-Present [phone] [address] [place] [id number] xxxxxxxxxxxx [id number] Social History Date Type Detail Facility Start: 10-10-1985 End: 06-16-2024 Tobacco smoking status NHIS Current every day smoker [place], [place] Start: 01-12-2019 End: 08-04-2024 Cigarettes smoked current (pack per day) - Reported [facility] Start: 01-12-2019 End: 08-04-2024 Alcohol intake Current drinker of alcohol (finding) [place] Start: 12-18-2016 Alcohol Comment at least 2 tallboys daily [place] Start: 1965 Sex Assigned At Not on file [place] Start: 08-31-2019 Alcohol Comment 6-24oz beers daily. Last drink 1 hour ago. [place] Exposure to SARS-CoV -2 (event) Unable to assess [place] Start: 10-02-2019 End: 06-16-2024 Tobacco use and exposure Never used [place] Start: 10-01-2019 Alcohol Comment 24 oz 12% beer [place] Start: 09-17-2021 End: 11-01-2022 Exposure to SARS-CoV-2 (event) Not sure [facility] [place], [place] Start: 10-10-1985 History of tobacco use Cigarette Smoker [facility] Work Phone: Start: 06-06-2021 History SDOH Alcohol Comment 25oz cans beer 6-8 per day [facility] Work Phone: Start: 09-27-2021 History SDOH Alcohol Comment 25oz cans beer 9-10 per day [facility] Work Phone: Start: 1965 Sex Assigned At Male [facility] Start: 06-02-2022 End: 06-12-2022 Exposure to SARS-CoV-2 (event) Yes [facility] Start: 07-22-2022 History SDOH Alcohol Frequency 5 [facility] Start: 07-22-2022 History SDOH IPV Fear 2 [facility] Start: 07-23-2022 Alcohol Comment beer 8 cans / day [facility] Start: 07-22-2022 End: 08-04-2024 Humiliation, Afraid, Rape, and Kick questionnaire [HARK] [facility] Within the last year , have you been afraid of your partner or ex-partner? No [facility] Are you now , , , , never or living with a partner? [facility] How often to you hav e a drink containing alcohol? 4 or more times a week [facility] How many standard dr inks containing alcohol do you have on a typical day? 7 to 9 [facility] How often do you hav e 6 or more drinks on 1 occasion? Daily or almost daily [facility] How hard is it for y ou to pay for the very basics like food, housing, medical care, and heating Not very hard [facility] Do you feel stress - tense, [...] Gender identity Identifies as male gender (finding) [facility] Start: 06-12-2022 Sexual orientation Heterosexual (finding) [facility] Start: 09-25-2022 End: 08-10-2024 Alcohol intake Ex-drinker (finding) [facility] Start: 02-08-2023 Alcohol Comment 6-9 tall boy beers/day [facility] Start: 02-17-2023 Alcohol Comment Detox home for a week 0 drinks 02/17/23 [facility] How many standard dr inks containing alcohol do you have on a typical day? 5 or 6 [facility] Do you feel stress - tense, restless, nervous, or anxious, or unable to sleep at night because your mind is troubled all the time - these days [OSQ] To some extent [facility] How many standard dr inks containing alcohol do you have on a typical day? 10 or more [facility] Start: 11-28-2023 Alcohol Comment Detox home for a week 0 drinks 02/17/23, 6 tall boys/ daily 11/28/23 [facility] How hard is it for y ou to pay for the very basics like food, housing, medical care, and heating Somewhat hard [facility] Do you feel stress - tense, restless, nervous, or anxious, or unable to sleep at night because your mind is troubled all the time - these days [OSQ] Not at all [facility] Start: 10-30-2021 Sex Male (finding) [facility] How often to you hav e a drink containing alcohol? Never [facility] History of tobacco use Passive smoker [facility] Start: 05-09-2024 Tobacco Comment Started at 19, 2 PPD, 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 05/09/2024 [facility] History of tobacco use Cigar Smoker [facility] How often to you hav e a drink containing alcohol? 2-4 times a month [facility] How many standard dr inks containing alcohol do you have on a typical day? 1 or 2 [facility] Goals Date Patient Goal Desired Activity [...] gave contact information, will provide follow up. [facility] 08-17-2024 Telephone encounter Note Therapy completed [facility] 08-17-2024 Miscellaneous Notes Therapy completed Medication name: [...] the medication: Yes documented in this encounter [facility] 08-14-2024 Telephone encounter Note Medication name: valACYclovir [...] prior to picking up the medication: Yes [facility] 08-14-2024 History of Present illness Narrative Images from the original note were not included. [facility] - [address] [facility] [address] Dept: [phone] Dept Loc: [phone] Reason for Visit: Herpes Zoster Assessment and [...] CYST REMOVAL face EGD (HISTORICAL) 07/23/2022 Dr. Estrella-[facility] SMALL INTESTINE SURGERY UPPER GASTROINTESTINAL ENDOSCOPY 09/27/2021 normal WISDOM TOOTH EXTRACTION [6] Family History Problem Relation Name Age of Onset Depression Sister Maria De Jesus Hogan Other ([id number]) Sister Maria De Jesus Hogan agoraphobia Arthritis Sister Maria De Jesus Hogan Cancer Mother Maria De Jesus Hogan colon rectal cancer; dx after age 50 Other ([id number]) Mother Maria De Jesus Hogan alcoholism Alcohol abuse Mother Maria De Jesus Hogan Stroke Mother Maria De Jesus Hogan Other ([id number]) Father Maria De Jesus Hogan h/o rheumatic fever, cardiac arrest due to bee sting Hypertension Father Maria De Jesus Hogan documented in this encounter [facility] 08-13-2024 History of Present illness Narrative Missed Session Unexcused Pt did not call or show for Scheduled Assessment on this date. documented in this encounter [facility] 08-10-2024 Hospital Discharge instructions Catalino Waddell MD - 08/10/2024 4:49 PM EDT Pain medication sent to pharmacy. Try to stretch this out as long as you can as this is already a repeat prescription. The following attachments cannot be sent through Care Everywhere.Shingles Discharge Instructions (Belarusian)documented in this encounter [facility] 08-10-2024 Emergency department Note EMERGENCY DEPARTMENT ENCOUNTER [...] CYST REMOVAL face EGD (HISTORICAL) 07/23/2022 Dr. Estrella-[facility] SMALL INTESTINE SURGERY UPPER GASTROINTESTINAL ENDOSCOPY 09/27/2021 [...] Depression Sister Maria De Jesus Hogan Other ([id number]) Sister Maria De Jesus Hogan agoraphobia Arthritis Sister Maria De Jesus Hogan Cancer Mother Maria De Jesus Hogan colon rectal cancer; dx after age 50 Other ([id number]) Mother Maria De Jesus Hogan alcoholism Alcohol abuse Mother Maria De Jesus Hogan Stroke Mother Maria De Jesus Hogan Other ([id number]) Father Maria De Jesus Hogan h/o rheumatic [...] 0 min Stress: Stress Concern Present (08/04/2024) [employer] [place] [employer] - Occupational Stress Questionnaire Feeling of Stress : To some extent Social Connections: Moderately Isolated (08/04/2024) Social Connection and Isolation Panel [NHANES] Frequency of Communication with Friends and Family: Twice a week Frequency of Social Gatherings with Friends and Family: Twice a week Attends Tenriism Services: Never Active Member of Clubs or [...] [facility] (Per Emergency Physician): Interpretation per the [...] PM PATIENT REFERRED TO: Lynda Rasheed MD [address] [place] [address] [address] [facility] [id number] In 1 week DISCHARGE MEDICATIONS: New Prescriptions [...] area on abdomen. documented in this encounter [facility] 08-10-2024 Emergency department Triage note Recently diagnosed with shingles and is here for increasing pain to area on abdomen. [facility] 08-10-2024 Physician Emergency department Note EMERGENCY DEPARTMENT [...] intoxication without complication (CMS/HCC) (HCC) 04/10/2024 Alcoholism ([facility]/HCC) (HCC) Anxiety Apical lung nodule Arthritis Maria De Jesus Cerebral artery occlusion with cerebral infarction (HCC) Cerebrovascular disease Depression GERD (gastroesophageal reflux disease) Maria De Jesus Hypertension Insomnia Lung nodule SURGICAL HISTORY Past Surgical History: Procedure Laterality Date COLONOSCOPY 06/10/2020 EGD/Dr Madison/B CYST REMOVAL face EGD (HISTORICAL) 07/23/2022 Dr. Estrella-[facility] SMALL INTESTINE SURGERY UPPER GASTROINTESTINAL ENDOSCOPY 09/27/2021 [...] Depression Sister Maria De Jesus Hogan Other ([id number]) Sister Maria De Jesus Hogan agoraphobia Arthritis Sister Maria De Jesus Hogan Cancer Mother Maria De Jesus Hogan colon rectal cancer; dx after age 50 Other ([id number]) Mother Maria De Jessu Hogan alcoholism Alcohol abuse Mother Maria De Jesus Hogan Stroke Mother Maria De Jesus Hogan Other ([id number]) Father Maria De Jesus Hogan h/o rheumatic [...] 0 min Stress: Stress Concern Present (08/04/2024) [employer] [place] [employer] - Occupational Stress Questionnaire Feeling of Stress : To some extent Social Connections: Moderately Isolated (08/04/2024) Social Connection and Isolation Panel [NHANES] Frequency of Communication with Friends and Family: Twice a week Frequency of Social Gatherings with Friends and Family: Twice a week Attends Tenriism Services: Never Active Member of Clubs or [...] PM PATIENT REFERRED TO: Lynda Rasheed MD [address] [place] [address] [address] [facility] [id number] In 1 week DISCHARGE MEDICATIONS: New Prescriptions [...] Emergency Medicine Provider Catalino Waddell MD 08/10/241652 [facility] 08-06-2024 Nurse Note Patient is A&O x4, cooperative, social. He is up steady, eating well, compliant with medications. He continues Valtrex for shingles. CIWA monitored. Order to discharge home received. Instructions, medications and appointments reviewed and he voiced understanding. He denies SI/HI/AVH. Belongings returned. Meds to beds given to patient. Escorted to [address] [place] [address], picked up by his . [facility] 08-06-2024 Nurse Note Patient is A&O x4, cooperative, social. He is up steady, eating well, compliant with medications. He continues Valtrex for shingles. CIWA monitored. Order to discharge home received. Instructions, medications and appointments reviewed and he voiced understanding. He denies SI/HI/AVH. Belongings returned. Meds to beds given to patient. Escorted to [address] [place] [address], picked up by his . 2 attempts [...] pt for safety. documented in this encounter [facility] 08-06-2024 Hospital course Narrative Images from the original note were not included. ADDICTION MEDICINE DETOX UNIT DISCHARGE SUMMARY Patient MRN Mraia De Jesus Hogan [id number] 1965 Admit Date Discharge Date 08/03/2024 08/06/2024 [...] disorder and has been admitted to the [facility] multiple times in the past for similar presentation, with last known admission to the detox unit on 06/02/2024 the patient left [place] on 06/04/2024. During evaluation today, patient was [...] 364 ms QTC Interval 461 ms P [place] 35 degrees QRS [place] 80 degrees T Wave [place] 47 degrees [place] Interval 154 ms Drug screen panel, emergency [...] Your Medications These medications were sent to [facility] [address] [place] [id number] Hours: Saturday to Saturday 10 am to 6 pm gabapentin 400 MG capsule ibuprofen 800 MG tablet oxyCODONE 5 MG immediate release tablet valACYclovir 1 g tablet Follow Up [facility] [address] [address] Go on 08/13/2024 At 1:30 PM for intake assessment for intensive outpatient program and addiction medicine follow-up. Future Appointments Date Time Provider Department Center 08/13/2024 1:30 PM Ammon Abdul [facility] ADD IOP None 10/21/2024 3:20 PM Lynda Rasheed MD [facility] The patient was also instructed [...] Jonatan Mckeon MD documented in this encounter [facility] 08-06-2024 Note [facility] 08-06-2024 Note Formatting of this n ote might be different from the original. Social work consult placed for patient. None of the 5 areas of S NAHOMY noted at current time. Social work consult cleared [facility] 08-06-2024 Note Formatting of this n ote might be different from the original. Social work consult placed for patient. None of the 5 areas of S NAHOMY noted at current time. Social work consult cleared [facility] 08-06-2024 Miscellaneous Notes Social work consult placed [...] follow-up as scheduled with [facility] at the [place] office on 08/13 at 130. Patient denied [...] Free of withdrawal symptoms Outcome: Progressing Department: [facility] [employer] [facility] Topic: Recreation Therapy Group Date: [...] Jesus Hogan Date of : 1965 MR: [id number] Appearance: Good eye contact Affect: Appropriate Behavior: [...] withdrawal symptoms Outcome: Progressing Patient scheduled for [facility] intake assessment on 08/13/2024 at 1:30 PM. All information included in patient's discharge paperwork. Patient reports plans to engage in [facility]. Declining residential as an option at current time. [facility] will assist with scheduling patient intake appointment. Behavioral Health Psycho-Social Assessment (Social Work) Date: 08/04/2024 Patient Name: Maria De Jesus Hogan : 1965 Identifying Information: Patient is a 58-year-old male mated to [facility] for detox and alcohol. Patient is well-known [...] as an adult. Patient denies any history [place] or status. Family Constellation/Childhood History: Patient reports that he is currently to his living in [facility]. Patient reports that he has 3 biological children and 4 stepchildren. Patient reports that his father in his 9 years old. Patient did not report his mother is still alive currently. Patient was born and raised in [place], [place] by his mother and father. 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 Patient denies SSI/SSD. Cultural/Spirituality/Leisure: Patient denies any cultural needs or concerns at the current time. Patient denies identify any presybeterian preference. It is unknown if patient is [...] Plan: Current plan is for patient stabilization. [facility] patient will continue work together to establish appropriate aftercare plan based on patient sobriety, needs, and resource available to local community. Patient encouraged to engage in all activities that are offered to them while they are on the unit. Patient report needing additional current time. Patient encouraged to seek out [facility] unit staff should they identify any additional [...] Care plan reviewed documented in this encounter [facility] 08-06-2024 Note Formatting of this n ote might be different from the original. Patient being discharged this date. Social work met with patient at bedside. Patient stated he feels he is ready to leave and denies SI/HI/AVH. Patient will be returning to his home with transportation provided by his . Patient is agreeable to follow-up as scheduled with [facility] at the [facility] on 08/13 at 130. Patient denied any other social work needs at this time. Patient acknowledged she may contact the unit should needs arise after discharge. [facility] Work Phone: 08-06-2024 Note Formatting of this n ote might be different from the original. Patient being discharged this date. Social work met with patient at bedside. Patient stated he feels he is ready to leave and denies SI/HI/AVH. Patient will be returning to his home with transportation provided by his . Patient is agreeable to follow-up as scheduled with [facility] at the [facility] on 08/13 at 130. Patient denied any other social work needs at this time. Patient acknowledged she may contact the unit should needs arise after discharge. [employer] Work Phone: 08-06-2024 Plan of care note Problem: Drug Abuse/Detox Goal: Will have no detox symptoms and will verbalize plan for changing drug-related behavior Outcome: Progressing Problem: Potential for Substance Withdrawal Goal: Verbalizes signs/symptoms of withdrawal Outcome: Progressing Goal: Reports signs/symptoms of withdrawal Outcome: Progressing Goal: Free of withdrawal symptoms Outcome: Progressing [employer] 08-06-2024 History of Present illness Narrative Hospitalist Progress Note Subjective: Admit Date: 08/03/2024 PCP: Lynda Rasheed MD [facility] A Chief Complaint Patient presents with Rash On abdomen Back Pain Middle of back. No known injury. 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 No known injury. 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 Patient also has a history of leaving [place] prior to his detox being completed. Patient states that at his last admission in May 2024 for detox, he was supposed to go to a rehabilitation facility in [place] but his uncle was going to pay [...] to review: Daily CMP, daily vitals, CDT. Lead Painter to coordinate care with: [facility]. Will follow. Associated attestation - Jonatan Mckeon [...] a later date. documented in this encounter [facility] 08-06-2024 Nurse Note 2 attempts done for blood draw. Unable to retrieve blood. 2nd nurse to attempt. [facility] 08-06-2024 Nurse Note Patient is up and steady, seen in group room. Pt is cooperative and med compliant. Pt denies SI/HI/AVH. Pt encouraged to notify staff for any questions and concerns. [facility] 08-05-2024 Nurse Note One episode of emesis noted shortly after administration of PRN oxycodone. Patient reports this is a normal occurrence for him-instructed to alert staff of any further potential episodes of emesis. PRN Zofran given at 1735-per patient, medication was effective. No further needs or concerns voiced. Safety maintained. [facility] 08-05-2024 Nurse Note PRN ibuprofen given at [...] further needs or concerns voiced. Safety maintained. [employer] 08-05-2024 Group counseling note Department: [employer] [facility] Topic: Recreation Therapy Group Date: [...] Jesus Hogan Date of : 1965 MR: [id number] Appearance: Good eye contact Affect: Appropriate Behavior: [...] with complication (HCC) Shingles (herpes zoster) polyneuropathy [facility] 08-05-2024 Nurse Note Patient seen in room [...] concerns. Plan of care ongoing. Safety maintained. [facility] 08-05-2024 Plan of care note Problem: Drug Abuse/Detox Goal: Will have no detox symptoms and will verbalize plan for changing drug-related behavior Outcome: Progressing Problem: Potential for Substance Withdrawal Goal: Verbalizes signs/symptoms of withdrawal Outcome: Progressing Goal: Reports signs/symptoms of withdrawal Outcome: Progressing Goal: Free of withdrawal symptoms Outcome: Progressing [facility] 08-04-2024 Nurse Note Patient is up and steady, seen in group room socializing. Pt is cooperative and med compliant. Pt has shingles on right flank and back. Pt denies SI/HI/AVH. Pt encouraged to notify staff for any questions and concerns. [facility] 08-04-2024 Nurse Note Administered PRN Oxycodone for shingles pain. Will monitor effectiveness. [facility] 08-04-2024 Note Patient sleeping com fortably, will attempt smoking cessation counseling at a later date. [facility] 08-04-2024 Note Formatting of this n ote might be different from the original. Patient scheduled for [place] [facility] intake assessment on 08/13/2024 at 1:30 PM. All information included in patient's discharge paperwork. [facility] 08-04-2024 Note Formatting of this n ote might be different from the original. Patient scheduled for [place] [facility] intake assessment on 08/13/2024 at 1:30 PM. All information included in patient's discharge paperwork. [facility] 08-04-2024 Nurse Note Patient withdrawn to room [...] concerns. Will monitor for safety this shift. [facility] 08-04-2024 History and physical note Images from the original note were not included. ADDICTION MEDICINE 4E DETOX UNIT H&P Patient: Maria De Jesus Hogan Admit Date: 08/03/2024 Primary Care Physician: Lynda Rasheed MD HISTORY OF PRESENT ILLNESS Chief Complaint Patient presents with Rash On abdomen Back Pain Middle of back. No known injury. 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 year old male with a PMH of alcohol abuse, alcohol withdrawal, arthritis, cerebral artery occlusion with cerebral infarction, cerebrovascular disease, GERD, HTN, insomnia that was admitted for detox from alcohol. Patient has a long history of alcohol use disorder and has been admitted to the [facility] multiple times in the past for similar presentation, with last known admission to the detox unit on 06/02/2024 the patient left AMA on 06/04/2024. Maria De Jesus Hogan states that prior to presentation, he last admitted to [facility] in May of 2024. At the time of that admission, patient was looking to go to a rehab facility in [place] and that his uncle was supposed to [...] states that he wants to go to [facility] on discharge, as he felt that [...] Brief Substance Use Narrative - Copied from HAM STRINGER note from 08/04/24. Patient reports that he [...] CYST REMOVAL face EGD (HISTORICAL) 07/23/2022 Dr. Estrella-[facility] SMALL INTESTINE SURGERY UPPER GASTROINTESTINAL ENDOSCOPY 09/27/2021 normal WISDOM TOOTH EXTRACTION Family History Family History Problem Relation Name Age of Onset Depression Sister Maria De Jesus Hogan Other ([id number]) Sister Maria De Jesus Hogan agoraphobia Arthritis Sister Maria De Jesus Hogan Cancer Mother Maria De Jesus Hogan colon rectal cancer; dx after age 50 Other ([id number]) Mother Maria De Jesus Hogan alcoholism Alcohol abuse Mother Maria De Jesus Hogan Stroke Mother Maria De Jesus Hogan Other ([id number]) Father Maria De Jesus Hogan h/o rheumatic [...] 0 min Stress: Stress Concern Present (08/04/2024) [place] [employer] - Occupational Stress Questionnaire Feeling of Stress : To some extent Social Connections: Moderately Isolated (08/04/2024) Social Connection and Isolation Panel [NHANES] Frequency of Communication with Friends and Family: Twice a week Frequency of Social Gatherings with Friends and Family: Twice a week Attends Tenriism Services: Never Active Member of Clubs or [...] Utilities: Not At Risk (08/04/2024) [facility] Utilities Threatened with loss of utilities: No Recent Concern: Utilities - At Risk (05/08/2024) [facility] Utilities Threatened with loss of utilities: [...] Electronically Signed On 08-04-2024 02:23:55 EDT by [employer] Recent Results (from the past 48 hours) [...] 364 ms QTC Interval 461 ms P [place] 35 degrees QRS [place] 80 degrees T Wave [place] 47 degrees [place] Interval 154 ms Drug screen panel, emergency [...] CDT 08/04/24: pending Ordered given recidivistic behavior [facility] 08-04-2024 Note [facility] 08-04-2024 History and physical note Images from the original note were not included. ADDICTION MEDICINE DETOX UNIT H&P Patient: Maria De Jesus Hogan Admit Date: 08/03/2024 Primary Care Physician: Lynda Rasheed MD HISTORY OF PRESENT ILLNESS Chief Complaint Patient presents with Rash On abdomen Back Pain Middle of back. No known injury. 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 year old male with a PMH of alcohol abuse, alcohol withdrawal, arthritis, cerebral artery occlusion with cerebral infarction, cerebrovascular disease, GERD, HTN, insomnia that was admitted for detox from alcohol. Patient has a long history of alcohol use disorder and has been admitted to the [facility] multiple times in the past for similar presentation, with last known admission to the detox unit on 06/02/2024 the patient left A on 06/04/2024. Maria De Jesus Hogan states that prior to presentation, he last admitted to [facility] in May of 2024. At the time of that admission, patient was looking to go to a rehab facility in [place] and that his uncle was supposed to [...] states that he wants to go to [facility] on discharge, as he felt that [...] CYST REMOVAL face EGD (HISTORICAL) 07/23/2022 Dr. Estrella-[facility] SMALL INTESTINE SURGERY UPPER GASTROINTESTINAL ENDOSCOPY 09/27/2021 normal WISDOM TOOTH EXTRACTION Family History Family History Problem Relation Name Age of Onset Depression Sister Maria De Jesus Hogan Other ([id number]) Sister Maria De Jesus Hogan agoraphobia Arthritis Sister Maria De Jesus Hogan Cancer Mother Maria De Jesus Hogan colon rectal cancer; dx after age 50 Other ([id number]) Mother Maria De Jesus Hogan alcoholism Alcohol abuse Mother Maria De Jesus Hogan Stroke Mother Maria De Jesus Hogan Other ([id number]) Father Maria De Jesus Hogan h/o rheumatic [...] 0 min Stress: Stress Concern Present (08/04/2024) [place] [employer] - Occupational Stress Questionnaire Feeling of Stress : To some extent Social Connections: Moderately Isolated (08/04/2024) Social Connection and Isolation Panel [NHANES] Frequency of Communication with Friends and Family: Twice a week Frequency of Social Gatherings with Friends and Family: Twice a week Attends Tenriism Services: Never Active Member of Clubs or [...] Utilities: Not At Risk (08/04/2024) [facility] Utilities Threatened with loss of utilities: No Recent Concern: Utilities - At Risk (05/08/2024) [facility] Utilities Threatened with loss of utilities: [...] 364 ms QTC Interval 461 ms P [place] 35 degrees QRS [place] 80 degrees T Wave [place] 47 degrees [place] Interval 154 ms Drug screen panel, emergency [...] given recidivistic behavior documented in this encounter [facility] 08-04-2024 Note Formatting of this n ote might be different from the original. Patient reports plans to engage in [facility]. Declining residential as an option at current time. HAM STRINGER will assist with scheduling patient intake appointment. [facility] 08-04-2024 Note Formatting of this n ote might be different from the original. Patient reports plans to engage in [facility]. Declining residential as an option at current time. HAM STRINGER will assist with scheduling patient intake appointment. T [facility] 08-04-2024 Consult note Formatting of th is [...] CYST REMOVAL face EGD (HISTORICAL) 07/23/2022 Dr. Estrella-[facility] SMALL INTESTINE SURGERY UPPER GASTROINTESTINAL ENDOSCOPY 09/27/2021 [...] 0 min Stress: Stress Concern Present (08/04/2024) [place] [employer] - Occupational Stress Questionnaire Feeling of Stress : To some extent Social Connections: Moderately Isolated (08/04/2024) Social Connection and Isolation Panel [NHANES] Frequency of Communication with Friends and Family: Twice a week Frequency of Social Gatherings with Friends and Family: Twice a week Attends Tenriism Services: Never Active Member of Clubs or [...] Depression Sister Maria De Jesus Hogan Other ([phone]) Sister Maria De Jesus Hogan agoraphobia Arthritis Sister Maria De Jesus Hogan Cancer Mother Maria De Jesus Hogan colon rectal cancer; dx after age 50 Other ([id number]) Mother Maria De Jesus Hogan alcoholism Alcohol abuse Mother Maria De Jesus Hogan Stroke Mother Maria De Jesus Hogan Other ([phone]) Father Maria De Jesus Hogan h/o rheumatic [...] 364 ms QTC Interval 461 ms P [place] 35 degrees QRS [place] 80 degrees T Wave [place] 47 degrees [place] Interval 154 ms Drug screen panel, emergency [...] Extended Emergency Contact Information Primary Emergency Contact: O'Brien,April Mobile Relation: Spouse JUAN Baker CNP Division of Hospitalist Medicine [facility] Cosigned by Dawn Sanchez MD at 08/04/2024 11:16 AM EDT Associated attestation - Dawn Sanchez MD - 08/04/2024 11:16 AM EDT Hospitalist Progress Note 08/04/2024 [phone]: Please page me ([phone]) for patient care issues. [phone]: Please page [facility] Hospitalist for any issues. Subjective: Admit Date: 08/03/2024 PCP: Lynda Rasheed MD Room#: Q6-981/N4-608 A I have evaluated the patient and [...] cerebral artery occlusion with infarct, presented to [facility] on 08/03 for alcohol detox at [...] Dawn Sanchez MD Division of Hospitalist Medicine [employer] [facility] 11:08 AM 08/04/24 That{img} Phone: 08-04-2024 Consult note Formatting of th is note is different from the original. Hospital Medicine Consult Patient - Maria De Jesus Hogan, Age - 58 y.o. - 1965 Room Number - [id number] A Consulting - Bryan Rodriguez MD Primary Care Physician - [phone] Date of Admission - 08/03/2024 4:56 PM [...] intoxication without complication (CMS/HCC) (HCC) 04/10/2024 Alcoholism ([facility]/HCC) (HCC) Anxiety Apical lung nodule Arthritis Maria De Jesus Cerebral artery occlusion with cerebral infarction (HCC) Cerebrovascular disease Depression GERD (gastroesophageal reflux disease) Maria De Jesus Hypertension Insomnia Lung nodule Past Surgical History: Past Surgical History: Procedure Laterality Date COLONOSCOPY 06/10/2020 EGD/Dr Madison/AMANDA CYST REMOVAL face EGD (HISTORICAL) 07/23/2022 Dr. Estrella-[facility] SMALL INTESTINE SURGERY UPPER GASTROINTESTINAL ENDOSCOPY 09/27/2021 [...] 0 min Stress: Stress Concern Present (08/04/2024) [place] [employer] - Occupational Stress Questionnaire Feeling of Stress : To some extent Social Connections: Moderately Isolated (08/04/2024) Social Connection and Isolation Panel [NHANES] Frequency of Communication with Friends and Family: Twice a week Frequency of Social Gatherings with Friends and Family: Twice a week Attends Tenriism Services: Never Active Member of Clubs or [...] Depression Sister Maria De Jesus Hogan Other ([id number]) Sister Maria De Jesus Hogan agoraphobia Arthritis Sister Maria De Jesus Hogan Cancer Mother Maria De Jesus Hogan colon rectal cancer; dx after age 50 Other ([id number]) Mother Maria De Jesus Hogan alcoholism Alcohol abuse Mother Maria De Jesus Hogan Stroke Mother Maria De Jesus Hogan Other ([id number]) Father Maria De Jesus Hogan h/o rheumatic [...] 364 ms QTC Interval 461 ms P [place] 35 degrees QRS [place] 80 degrees T Wave [place] 47 degrees [place] Interval 154 ms Drug screen panel, emergency [...] Extended Emergency Contact Information Primary Emergency Contact: O'Brien,April Mobile Relation: Spouse JUAN Baker CNP Division of Hospitalist Medicine [facility] Cosigned by Dawn Sanchez MD at 08/04/2024 11:16 AM EDT Associated attestation - Dawn Sanchez MD - 08/04/2024 11:16 AM EDT Hospitalist Progress Note 08/04/2024 [phone]: Please page me ([phone]) for patient care issues. [phone]: Please page [facility] night Hospitalist for any issues. Subjective: Admit [...] cerebral artery occlusion with infarct, presented to [facility] on 08/03 for alcohol detox at [...] 11:08 AM 08/04/24 documented in this encounter [facility] 08-04-2024 Hospital Discharge instructions JEREMY Solis - [...] National Suicide Prevention Hotline if needed at: 1-575-019-YJCB (2369) Please call the following number should you have questions regarding your discharge or aftercare appointments: [facility] The following attachments cannot be sent through Care Everywhere.Alcohol Use Disorder Discharge Instructions (Belarusian)documented in this encounter [facility] 08-04-2024 Note Formatting of this n ote is different from the original. Behavioral Health Psycho-Social Assessment (Social Work) Date: 08/04/2024 Patient Name: Maria De Jesus Hogan : 1965 Identifying Information: Patient is a 58-year-old male mated to [facility] for detox and alcohol. Patient is well-known [...] as an adult. Patient denies any history [place] or status. Family Constellation/Childhood History: Patient reports that he is currently to his living in [facility]. Patient reports that he has 3 biological children and 4 stepchildren. Patient reports that his father in his 9 years old. Patient did not report his mother is still alive currently. Patient was born and raised in [place], [place] by his mother and father. 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 Patient denies SSI/SSD. Cultural/Spirituality/Leisure: Patient denies any cultural needs or concerns at the current time. Patient denies identify any presybeterian preference. It is unknown if patient is [...] Plan: Current plan is for patient stabilization. HAM STRINGER patient will continue work together to establish appropriate aftercare plan based on patient sobriety, needs, and resource available to local community. Patient encouraged to engage in all activities that are offered to them while they are on the unit. Patient report needing additional current time. Patient encouraged to seek out HAM STRINGER unit staff should they identify any additional [...] to contact the dictating provider for clarification. [facility] 08-04-2024 Note Formatting of this n ote is different from the original. Behavioral Health Psycho-Social Assessment (Social Work) Date: 08/04/2024 Patient Name: Maria De Jesus Hogan : 1965 Identifying Information: Patient is a 58-year-old male mated to [facility] for detox and alcohol. Patient is well-known [...] as an adult. Patient denies any history [place] or status. Family Constellation/Childhood History: Patient reports that he is currently to his living in [facility]. Patient reports that he has 3 biological children and 4 stepchildren. Patient reports that his father in his 11 years old. Patient did not report his mother is still alive currently. Patient was born and raised in [place], [place] by his mother and father. 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 Patient denies SSI/SSD. Cultural/Spirituality/Leisure: Patient denies any cultural needs or concerns at the current time. Patient denies identify any presybeterian preference. It is unknown if patient is [...] Plan: Current plan is for patient stabilization. HAM STRINGER patient will continue work together to establish appropriate aftercare plan based on patient sobriety, needs, and resource available to local community. Patient encouraged to engage in all activities that are offered to them while they are on the unit. Patient report needing additional current time. Patient encouraged to seek out HAM STRINGER unit staff should they identify any additional [...] to contact the dictating provider for clarification. [facility] 08-04-2024 Plan of care note Care plan reviewed [facility] 08-04-2024 Nurse Note Pt arrived from ER [...] in condition. Will monitor pt for safety. [facility] 08-04-2024 Emergency department Note Transport here for pt. [facility] 08-04-2024 Emergency department Note Transport here for pt. Called report to RN at [facility] 4E. Patient here for a rash [...] No known injury. 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 Estrella-[facility] SMALL INTESTINE SURGERY UPPER GASTROINTESTINAL ENDOSCOPY 09/27/2021 [...] Depression Sister Maria De Jesus Hogan Other ([id number]) Sister Maria De Jesus Hogan agoraphobia Arthritis Sister Maria De Jesus Hogan Cancer Mother Maria De Jesus Hogan colon rectal cancer; dx after age 50 Other ([id number]) Mother Maria De Jesus Hogan alcoholism Alcohol abuse Mother Maria De Jesus Hogan Stroke Mother Maria De Jesus Hogan Other ([id number]) Father Maria De Jesus Hogan h/o rheumatic [...] 0 min Stress: Stress Concern Present (06/03/2024) [place] [employer] - Occupational Stress Questionnaire Feeling of Stress : To some extent Social Connections: Socially Isolated (06/04/2024) Social Connection and Isolation Panel [NHANES] Frequency of Communication with Friends and Family: Never Frequency of Social Gatherings with Friends and Family: Never Attends Tenriism Services: Never Active Member of Clubs or [...] Abnormal ETHANOL IN SER/PLAS 375 (*) 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 NOTE: This [...] dose of phenobarbital prior to transfer to [facility]. Discussed plans for admission with patient and his , they were comfortable and agreeable plans to be admitted at [facility]. Patient left [facility] in stable condition with stable vitals. [...] PA-C (electronically signed) Emergency Medicine Provider Debby Mckyo PA-C 08/03/241920 Cosigned by Matthew Demarco DO at 08/03/2024 9:11 PM EDT Emergency [...] the ED: improving (Consults) Discussed case with acura sales consultant, detox. They agree with current work [...] [employer] Matthew Demarco DO 08/05/24 0832 documented in this encounter [facility] 08-03-2024 Emergency department Note Called report to RN at [facility] 4E. [facility] 08-03-2024 Emergency department Note Patient here for a rash on his right rib area around to his back. Burning and painful. Patient also wants to be in rehab for his drinking his last drink was today and he drinks at least 8 tall boys per day. [facility] 08-03-2024 Physician Emergency department Note Images from the original note were not included. EMERGENCY DEPARTMENT ENCOUNTER Pt Name: Maria De Jesus Hogan Birthdate 1965 Date of evaluation: 08/03/2024 ED Provider: Debby Mckoy PA-C CHIEF COMPLAINT Chief Complaint Patient presents with Rash On abdomen Back Pain Middle of back. No known injury. 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 Estrella-[facility] SMALL INTESTINE SURGERY UPPER GASTROINTESTINAL ENDOSCOPY 09/27/2021 [...] Depression Sister Maria De Jesus Hogan Other ([phone]) Sister Maria De Jesus Hogan agoraphobia Arthritis Sister Maria De Jesus Hogan Cancer Mother Maria De Jesus Hogan colon rectal cancer; dx after age 50 Other ([id number]) Mother Maria De Jesus Hogan alcoholism Alcohol abuse Mother Maria De Jesus Hogan Stroke Mother Maria De Jesus Hogan Other ([phone]) Father Maria De Jesus Hogan h/o rheumatic [...] 0 min Stress: Stress Concern Present (06/03/2024) [place] [employer] - Occupational Stress Questionnaire Feeling of Stress : To some extent Social Connections: Socially Isolated (06/04/2024) Social Connection and Isolation Panel [NHANES] Frequency of Communication with Friends and Family: Never Frequency of Social Gatherings with Friends and Family: Never Attends Tenriism Services: Never Active Member of Clubs or [...] Homeless in the Last Year: No SCREENINGS [place] Coma Scale Best Eye Response: Spontaneous Best [...] Abnormal ETHANOL IN SER/PLAS 375 (*) 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 NOTE: This [...] dose of phenobarbital prior to transfer to [facility]. Discussed plans for admission with patient and his , they were comfortable and agreeable plans to be admitted at [facility]. Patient left [facility] in stable condition with stable vitals. [...] Demarco DO at 08/03/2024 9:11 PM EDT [facility] 08-03-2024 Physician Emergency department Note Emergency Department [...] the ED: improving (Consults) Discussed case with acura sales consultant, detox. They agree with current work [...] for clarification.) Matthew Demarco DO Acute Care [facility] Matthew Demarco DO 08/05/24 0826 [employer] Work Phone: 07-16-2024 Telephone encounter Note Attempt #3 LVM for patient to call our office to schedule follow up to review CT results. [employer] 07-16-2024 Miscellaneous Notes Attempt #3 LVM for patient to call our office to schedule follow up to review CT results. LVM for patient to call our office to reschedule missed appointment with ML. Will send [employer] message as well. documented in this encounter [facility] 07-01-2024 Emergency department Note EMERGENCY DEPARTMENT ENCOUNTER [...] CYST REMOVAL face EGD (HISTORICAL) 07/23/2022 Dr. Estrella-[facility] SMALL INTESTINE SURGERY UPPER GASTROINTESTINAL ENDOSCOPY 09/27/2021 [...] Depression Sister Maria De Jesus Hogan Other ([id number]) Sister Maria De Jesus Hogan agoraphobia Arthritis Sister Maria De Jesus Hogan Cancer Mother Maria De Jesus Hogan colon rectal cancer; dx after age 50 Other ([id number]) Mother Maria De Jesus Hogan alcoholism Alcohol abuse Mother Maria De Jesus Hogan Stroke Mother Maria De Jesus Hogan Other ([id number]) Father Maria De Jesus Hogan h/o rheumatic [...] 0 min Stress: Stress Concern Present (06/03/2024) [place] [employer] - Occupational Stress Questionnaire Feeling of Stress : To some extent Social Connections: Socially Isolated (06/04/2024) Social Connection and Isolation Panel [NHANES] Frequency of Communication with Friends and Family: Never Frequency of Social Gatherings with Friends and Family: Never Attends Tenriism Services: Never Active Member of Clubs or [...] PM PATIENT REFERRED TO: Lynda Rasheed MD [address] [place] [address] [address] [facility] [id number] As needed DISCHARGE MEDICATIONS: New Prescriptions No [...] Melara MD 07/01/242048 documented in this encounter [facility] 07-01-2024 Physician Emergency department Note EMERGENCY DEPARTMENT [...] CYST REMOVAL face EGD (HISTORICAL) 07/23/2022 Dr. Estrella-[facility] SMALL INTESTINE SURGERY UPPER GASTROINTESTINAL ENDOSCOPY 09/27/2021 [...] Depression Sister Maria De Jesus Hogan Other ([phone]) Sister Maria De Jesus Hogan agoraphobia Arthritis Sister Maria De Jesus Hogan Cancer Mother Maria De Jesus Hogan colon rectal cancer; dx after age 50 Other ([id number]) Mother Maria De Jesus Hogan alcoholism Alcohol abuse Mother Maria De Jesus Hogan Stroke Mother Maria De Jesus Hogan Other ([phone]) Father Maria De Jesus Hogan h/o rheumatic [...] 0 min Stress: Stress Concern Present (06/03/2024) [place] [employer] - Occupational Stress Questionnaire Feeling of Stress : To some extent Social Connections: Socially Isolated (06/04/2024) Social Connection and Isolation Panel [NHANES] Frequency of Communication with Friends and Family: Never Frequency of Social Gatherings with Friends and Family: Never Attends Tenriism Services: Never Active Member of Clubs or [...] PM PATIENT REFERRED TO: Lynda Rasheed MD [address] [place] [address] [address] [facility] [address] As needed DISCHARGE MEDICATIONS: New Prescriptions No [...] Emergency Medicine Provider Goyo Melara MD 07/01/242048 [facility] 06-25-2024 Telephone encounter Note LVM for patient to call our office to reschedule missed appointment with ML. Will send Alex and Anit message as well. T [facility] 06-23-2024 Telephone encounter Note Recent Visits Date Type Provider Dept 06/16/24 Office Visit Lynda Rasheed MD [facility] 05/20/24 Office Visit Lynda Rasheed MD [facility] 02/05/24 Office Visit Lynda Rasheed MD [facility] Showing recent visits within past 365 days [...] labs completed in chart? N/A None T [facility] 06-23-2024 Miscellaneous Notes Recent Visits Date Type Provider Dept 06/16/24 Office Visit Lynda Rasheed MD [facility] 05/20/24 Office Visit Lynda Rasheed MD [facility] 02/05/24 Office Visit Lynda Rasheed MD [facility] Showing recent visits within past 365 days [...] chart? N/A None documented in this encounter [facility] 06-23-2024 Telephone encounter Note Recent Visits Date Type Provider Dept 06/16/24 Office Visit Lynda Rasheed MD [facility] 05/20/24 Office Visit Lynda Rasheed MD [facility] 02/05/24 Office Visit Lynda Rasheed MD [facility] Showing recent visits within past 365 days [...] recent labs completed in chart? N/A None [facility] 06-23-2024 Miscellaneous Notes Recent Visits Date Type Provider Dept 06/16/24 Office Visit Lynda Rasheed MD [facility] 05/20/24 Office Visit Lynda Rasheed MD [facility] 02/05/24 Office Visit Lynda Rasheed MD [facility] Showing recent visits within past 365 days [...] chart? N/A None documented in this encounter [facility] 06-16-2024 History of Present illness Narrative Images from the original note were not included. [facility] - [address] [facility] [address] Dept: [phone] Dept Loc: [phone] Reason for Visit: Follow-up Assessment and Plan [...] Severe alcohol use disorder (HCC) follow-up with carburetor specialist in #6 lumbar back pain. Continue [...] for alcohol abuse. He has tried the carburetor specialist outpatient program. He states and currently [...] CYST REMOVAL face EGD (HISTORICAL) 07/23/2022 Dr. Estrella-[facility] SMALL INTESTINE SURGERY UPPER GASTROINTESTINAL ENDOSCOPY 09/27/2021 normal WISDOM TOOTH EXTRACTION Family History Problem Relation Name Age of Onset Depression Sister Maria De Jesus Hogan Other ([id number]) Sister Maria De Jesus Hogan agoraphobia Arthritis Sister Maria De Jesus Hogan Cancer Mother Maria De Jesus Hogan colon rectal cancer; dx after age 50 Other ([id number]) Mother Maria De Jesus Hogan alcoholism Alcohol abuse Mother Maria De Jesus Hogan Stroke Mother Maria De Jesus Hogan Other ([id number]) Father Maria De Jesus Hogan h/o rheumatic [...] Name[facility] DE JESUS [facility] 1965 [id number] Exam Date/Time: 06/11/2024 16:05 Procedure: CT CHEST [...] Lynda Rasheed MD documented in this encounter [facility] 06-08-2024 Telephone encounter Note We have been unable to reach your patient to schedule their testing. Test Name: US abdomen complete 1st attempt, via [employer] message, 05/23/24 JS 2nd attempt called LVM. TE to office. sent [employer] message. 06/08/24 LR [facility] 06-08-2024 Miscellaneous Notes We have been unable to reach your patient to schedule their testing. Test Name: US abdomen complete 1st attempt, via Alex and Anit message, 05/23/24 JS 2nd attempt called LVM. TE to office. sent [employer] message. 06/08/24 LR documented in this encounter [facility] 06-05-2024 Telephone encounter Note LVM [facility] 06-05-2024 Miscellaneous Notes LVM LVM for pt to call office to reschedule CT scan and follow up kavon Lara. documented in this encounter [facility] 06-04-2024 Note Formatting of this n ote might be different from the original. Social work consult placed for patient. Notified areas of S NAHOMY noted at current time. Social work consult is cleared. [facility] [employer] 06-04-2024 Note Formatting of this n ote might be different from the original. Social work consult placed for patient. Notified areas of S NAHOMY noted at current time. Social work consult is cleared. [facility] [employer] 06-04-2024 Miscellaneous Notes Social work consult placed for patient. Notified areas of S NAHOMY noted at current time. Social work consult is cleared. Department: [facility] ACTIV[facility]IES [facility]ERAP[facility] Group Topic: Recreation Therapy [...] Jesus Hogan Date of : 1965 MR: [id number] Appearance: Good eye contact Affect: Appropriate Behavior: [...] Patient is a 58-year-old male mated to [facility] for detox and alcohol. Patient is well-known [...] as an adult. Patient denies any history [place] or status. Family Constellation/Childhood History: Patient reports that he is currently to his living in [facility]. Patient reports that he has 3 biological children and 4 stepchildren. Patient reports that his father in his 11 years old. Patient did not report his mother is still alive currently. Patient was born and raised in [place], [place] by his mother and father. 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 Patient denies SSI/SSD. Cultural/Spirituality/Leisure: Patient denies any cultural needs or concerns at the current time. Patient denies identify any presybeterian preference. It is unknown if patient is [...] current time. Patient encouraged to seek out [facility] unit staff should they identify any additional [...] provider for clarification. documented in this encounter [facility] 06-04-2024 Note [facility] 06-04-2024 Hospital course Narrative Images from the original note were not included. ADDICTION MEDICINE 4E DETOX UNIT DISCHARGE SUMMARY Patient MRN ROSE Hogan [id number] 1965 Admit Date Discharge Date 06/02/2024 06/04/2024 - patient left [place] Primary Care Physician Lynda Rasheed MD Admitting [...] for alcohol withdrawal symptoms. Unfortunately, he left [place] on 06/04/24. He says he has a follow up with our lung nodule clinic tomorrow and then has a flight to catch to [place]. He claims to be enrolling into a residential alcohol treatment program in [place] but I have seen no proof of that. Due to hypertension and tachycardia ongoing on 06/04/24 I did not feel he was hemodynamically stable enough for discharge. I did order a 380 mg IM Vivitrol injection which he obtained on 06/04/24 before deciding to leave [place]. He was recently admitted earlier in May [...] AMA. He says he is flying to [place] tomorrow to enroll in a residential alcohol [...] about these medications Vivitrol injection Follow Up [facility] [address] [facility] [address] Call To schedule intake appointment for IOP assessment [facility] [address] [facility] [address] For primary care needs. Future Appointments Date Time Provider Department Center 06/05/2024 10:20 AM Kristin Lara APRN - GAUGER DELIVERY [facility] None 06/16/2024 2:00 PM Lynda Rasheed MD [facility] The patient was also instructed [...] < 30 minutes documented in this encounter [facility] 06-04-2024 Nurse Note Patient reports he has a CT scan tomorrow morning at [place] and then will be leaving for addiction treatment in [place] later that day. He spoke with the [...] a steady gait and is without complaint. [facility] 06-04-2024 Nurse Note Patient reports he has a CT scan tomorrow morning at [place] and then will be leaving for addiction treatment in [place] later that day. He spoke with the [...] 1740. Med. Rec. Done with Jesse at [facility] at 1230. Patient received PO PRN Tylenol [...] with his medications. documented in this encounter [facility] 06-04-2024 Nurse Note No issue reported after the Naltrexone pill given to the patient. He reports last time he took the medication it really helped his cravings. He reports taking the oral and injection form once in the past. [facility] 06-04-2024 History of Present illness Narrative Images [...] going to the residential treatment facility in [place] but is hopeful about it. He needs [...] go to a 90 day rehab in [place], [place] tomorrow. He is agreeable to starting [...] he is to leave for residential in [place] tomorrow. His heart rate was tachycardic and was being treated. He was asked to remain on the unit for monitoring until 6:00 PM. A discharge prior to this time will be considered AMA. This is pending: Resolution of withdrawal symptoms. Medical stabilization. Labs/tests/tasks to review: Monitor HR/tachycardia. Lead Painter to coordinate care with: N/A. Will follow. [...] in 6 weeks. documented in this encounter [facility] 06-04-2024 Nurse Note He reports that he [...] if needed they could properly treat him. [facility] 06-04-2024 Hospital Discharge instructions Christie Greene DO - 06/04/2024 10:51 AM EST Images from the original note were not included. [facility] PROGRAMS Addiction Medicine Intensive Outpatient Program [place] ([facility]): [phone] [place]: [phone] [place]: [phone] Behavioral Health Intensive Outpatient Program [place] ([facility]): [phone] [place]: [phone] First Step [place] ([facility]): [phone] [place]: [phone] Partial Hospitalization Program [place] ([facility]): [phone] Traumatic Stress Center [place] ([facility]): [phone] Vivitrol Clinic [place] ([facility]): [phone] Alcoholics Anonymous Meetings [email or web address] [facility], [address], [place] [address] JEREMY Solis - 06/03/2024 11:46 AM EST After detox you should abstain from any use of any mood altering chemical Appointment with your primary care physician should be scheduled It is highly recommended that you attend post hospital treatment Please read the information give to you - Intro to 12 step programs Call the National Suicide Prevention Hotline if needed at: 5-620-085-IFDP (5578) Please call the following number should you have questions regarding your discharge or aftercare appointments: [facility] documented in this encounter [facility] [employer] 06-04-2024 Nurse Note Patient is up and steady, seen socializing in group room. Pt is cooperative and med compliant. Pt denies SI/HI/AVH. Pt encouraged to notify staff for any questions and concerns. [facility] 06-03-2024 Nurse Note Patient woke up at 0900, and all safety measures in place. Patient anxious. Patient attended groups. Patient eating and drinking well. Patient wears glasses. Patient compliant with all medications Q-shift. Patient states I want to leave tomorrow. I have to go to [place] on Saturday for Lung nodules. Patient denies S.I.,H.I.AH/VH/TH Q-shift. CIWA of 5. Continue to monitor patient. [facility] 06-03-2024 Note Patient declined smo myles cessation counseling at this time. He was counseled on 05/09/2024. Patient has all of the smoking cessation handouts. Will follow up in 6 weeks. [facility] 06-03-2024 Nurse Note Patient received Nicotine Lozenge as per orders PRN PO at 1340, and 1740. [facility] 06-03-2024 Telephone encounter Note LVM for pt to call office to reschedule CT scan and follow up kavon Lara. [facility] 06-03-2024 Nurse Note Med. Rec. Done with Jesse at [facility] at 1230. [facility] 06-03-2024 Nurse Note Patient received PO PRN Tylenol as per orders at 1228 for lower back arthritis pain. [facility] 06-03-2024 Group counseling note Department: [facility] Group Topic: Recreation Therapy [...] Jesus Hogan Date of : 1965 MR: [id number] Appearance: Good eye contact Affect: Appropriate Behavior: [...] Alcohol withdrawal with inpatient treatment, uncomplicated (HCC) [facility] [employer] 06-03-2024 Nurse Note Patient received Nicotine Lozenge at 1139 and 1705 PRN PO as per orders. Patient received PO PRN Albuterol as per orders at 1705. [facility] [employer] 06-03-2024 Note Formatting of this n ote [...] as an adult. Patient denies any history [place] or status. Family Constellation/Childhood History: Patient reports that he is currently to his living in [facility]. Patient reports that he has 3 biological children and 4 stepchildren. Patient reports that his father in his 11 years old. Patient did not report his mother is still alive currently. Patient was born and raised in [place], [place] by his mother and father. 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 Patient denies SSI/SSD. Cultural/Spirituality/Leisure: Patient denies any cultural needs or concerns at the current time. Patient denies identify any presybeterian preference. It is unknown if patient is [...] current time. Patient encouraged to seek out [facility] unit staff should they identify any additional [...] to contact the dictating provider for clarification. [facility] 06-03-2024 Note Formatting of this n [...] as an adult. Patient denies any history [place] or status. Family Constellation/Childhood History: Patient reports that he is currently to his living in [facility]. Patient reports that he has 3 biological children and 4 stepchildren. Patient reports that his father in his 11 years old. Patient did not report his mother is still alive currently. Patient was born and raised in [place], [place] by his mother and father. 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 Patient denies SSI/SSD. Cultural/Spirituality/Leisure: Patient denies any cultural needs or concerns at the current time. Patient denies identify any presybeterian preference. It is unknown if patient is [...] current time. Patient encouraged to seek out [facility] unit staff should they identify any additional [...] to contact the dictating provider for clarification. [facility] 06-03-2024 History and physical note Images [...] Jesus Hogan was recently admitted to the [facility] detox unit from 05/07 through 05/10. He [...] alcohol intake with his wealth uncle in [place], [place] and his uncle agreed to bring him to [place] for rehabilitation. He is supposed to leave [...] Date Alcohol abuse Alcohol dependence with withdrawal ([facility]) 08/31/2019 Alcohol intoxication without use disorder, uncomplicated [...] CYST REMOVAL face EGD (HISTORICAL) 07/23/2022 Dr. Estrella-[facility] SMALL INTESTINE SURGERY UPPER GASTROINTESTINAL ENDOSCOPY 09/27/2021 normal WISDOM TOOTH EXTRACTION Family History Family History Problem Relation Name Age of Onset Depression Sister Maria De Jesus Hogan Other ([id number]) Sister Maria De Jesus Hogan agoraphobia Arthritis Sister Maria De Jesus Hogan Cancer Mother Maria De Jesus Hogan colon rectal cancer; dx after age 50 Other ([id number]) Mother Maria De Jesus Hogan alcoholism Alcohol abuse Mother Maria De Jesus Hogan Stroke Mother Maria De Jesus Hogan Other ([id number]) Father Maria De Jesus Hogan h/o rheumatic fever, cardiac arrest due to bee sting Hypertension Father Maria De Jesus Hogan [employer] Tobacco Use: High Risk (05/25/2024) Patient History [...] 0 min Stress: Stress Concern Present (06/03/2024) [employer] [place] [employer] - Occupational Stress Questionnaire Feeling of Stress : To some extent Social Connections: Socially Isolated (05/08/2024) Social Connection and Isolation Panel [NHANES] Frequency of Communication with Friends and Family: Twice a week Frequency of Social Gatherings with Friends and Family: Never Attends Tenriism Services: Never Active Member of Clubs or [...] No Utilities: At Risk (05/08/2024) [facility] Utilities Threatened with loss of utilities: [...] go to a 90 day rehab in [place], [place] on Saturday. Will discuss MAT with [...] any my colleagues in the outpatient setting [facility] 06-03-2024 Note [facility] 06-03-2024 History and physical note Images [...] Jesus Hogan was recently admitted to the [facility] detox unit from 05/07 through 05/10. He [...] alcohol intake with his wealth uncle in [place], [place] and his uncle agreed to bring him to [place] for rehabilitation. He is supposed to leave [...] CYST REMOVAL face EGD (HISTORICAL) 07/23/2022 Dr. Estrella-[facility] SMALL INTESTINE SURGERY UPPER GASTROINTESTINAL ENDOSCOPY 09/27/2021 normal WISDOM TOOTH EXTRACTION Family History Family History Problem Relation Name Age of Onset Depression Sister Maria De Jesus Hogan Other ([id number]) Sister Maria De Jesus Hogan agoraphobia Arthritis Sister Maria De Jesus Hogan Cancer Mother Maria De Jesus Hogan colon rectal cancer; dx after age 50 Other ([id number]) Mother Maria De Jesus Hogan alcoholism Alcohol abuse Mother Maria De Jesus Hogan Stroke Mother Maria De Jesus Hogan Other ([id number]) Father Maria De Jesus Hogan h/o rheumatic [...] 0 min Stress: Stress Concern Present (06/03/2024) [employer] [place] [employer] - Occupational Stress Questionnaire Feeling of Stress : To some extent Social Connections: Socially Isolated (05/08/2024) Social Connection and Isolation Panel [NHANES] Frequency of Communication with Friends and Family: Twice a week Frequency of Social Gatherings with Friends and Family: Never Attends Tenriism Services: Never Active Member of Clubs or [...] No Utilities: At Risk (05/08/2024) [facility] Utilities Threatened with loss of utilities: [...] go to a 90 day rehab in [place] on Saturday. Will discuss MAT with [...] the outpatient setting documented in this encounter [facility] 06-03-2024 Nurse Note Skin check was done [...] SI/HI/AVH. Pt is compliant with his medications. [facility] 06-02-2024 Emergency department Note Called report to Veronica @ [facility] 06-02-2024 Emergency department Note Called report to Veronica @ [facility] Pt normally drink 6-9 tall boys daily. Today pt only drank 3 and his last drink was about 5pm today. Pt last drink 30 minutes ago. Pt drank 3 tallboys today. Normally drinks 6-9 tallboys. Would like to get detoxed Emergency Department Encounter [facility] ED Patient: Maria De Jesus Hogan : [...] intoxication without complication (CMS/HCC) (HCC) 04/10/2024 Alcoholism ([facility]/HCC) (HCC) Anxiety Arthritis Maria De Jesus Cerebral artery occlusion with cerebral infarction (HCC) Cerebrovascular disease Depression GERD (gastroesophageal reflux disease) Maria De Jesus Hypertension Insomnia SURGICAL HISTORY Past Surgical History: Procedure Laterality Date COLONOSCOPY 06/10/2020 EGD/Dr Madison/[facility]AN[facility] CYST REMOVAL face EGD (HISTORICAL) 07/23/2022 Dr. Estrella-[facility] SMALL INTESTINE SURGERY UPPER GASTROINTESTINAL ENDOSCOPY 09/27/2021 [...] Depression Sister Maria De Jesus Hogan Other ([id number]) Sister Maria De Jesus Hogan agoraphobia Arthritis Sister Maria De Jesus Hogan Cancer Mother Maria De Jesus Hogan colon rectal cancer; dx after age 50 Other ([id number]) Mother Maria De Jesus Hogan alcoholism Alcohol abuse Mother Maria De Jesus Hogan Stroke Mother Maria De Jesus Hogan Other ([id number]) Father Maria De Jesus Hogan h/o rheumatic [...] 0 min Stress: Stress Concern Present (05/08/2024) [employer] [place] [employer] - Occupational Stress Questionnaire Feeling of Stress : To some extent Social Connections: Socially Isolated (05/08/2024) Social Connection and Isolation Panel [NHANES] Frequency of Communication with Friends and Family: Twice a week Frequency of Social Gatherings with Friends and Family: Never Attends Tenriism Services: Never Active Member of Clubs or [...] none. I also reviewed external records from [facility]. I discussed their care with Admitting team [...] 8:01 PM EST documented in this encounter [facility] 06-02-2024 Emergency department Note Pt normally drink 6-9 tall boys daily. Today pt only drank 3 and his last drink was about 5pm today. [facility] 06-02-2024 Emergency department Note Pt last drink 30 minutes ago. Pt drank 3 tallboys today. Normally drinks 6-9 tallboys. Would like to get detoxed [facility] 06-02-2024 Physician Emergency department Note Emergency Department Encounter [facility] ED Patient: Maria De Jesus Hogan : [...] [employer] Catalino Diallo DO 06/02/24 1824 [employer] Phone: 06-02-2024 Physician Emergency department Note EMERGENCY [...] intoxication without complication (CMS/HCC) (HCC) 04/10/2024 Alcoholism ([facility]/HCC) (HCC) Anxiety Arthritis Maria De Jesus Cerebral artery occlusion with cerebral infarction (HCC) Cerebrovascular disease Depression GERD (gastroesophageal reflux disease) Maria De Jesus Hypertension Insomnia SURGICAL HISTORY Past Surgical History: Procedure Laterality Date COLONOSCOPY 06/10/2020 EGD/Dr Madison/[facility] CYST REMOVAL face EGD (HISTORICAL) 07/23/2022 Dr. Estrella-[facility] SMALL INTESTINE SURGERY UPPER GASTROINTESTINAL ENDOSCOPY 09/27/2021 [...] Depression Sister Maria De Jesus Hogan Other ([id number]) Sister Maria De Jesus Hogan agoraphobia Arthritis Sister Maria De Jesus Hogan Cancer Mother Maria De Jesus Hogan colon rectal cancer; dx after age 50 Other ([id number]) Mother Maria De Jesus Hogan alcoholism Alcohol abuse Mother Maria De Jesus Hogan Stroke Mother Maria De Jesus Hogan Other ([id number]) Father Maria De Jesus Hogan h/o rheumatic [...] 0 min Stress: Stress Concern Present (05/08/2024) [employer] [place] [employer] - Occupational Stress Questionnaire Feeling of Stress : To some extent Social Connections: Socially Isolated (05/08/2024) Social Connection and Isolation Panel [NHANES] Frequency of Communication with Friends and Family: Twice a week Frequency of Social Gatherings with Friends and Family: Never Attends Tenriism Services: Never Active Member of Clubs or [...] none. I also reviewed external records from [facility]. I discussed their care with Admitting team [...] Diallo DO at 06/03/2024 8:01 PM EST That{img} Phone: 06-02-2024 Telephone encounter Note Recent Visits Date Type Provider Dept 05/20/24 Office Visit Lynda Rasheed MD [facility] 02/05/24 Office Visit Lynda Rasheed MD [facility] Showing recent visits within past 365 days and meeting all other requirements Future Appointments Date Type Provider Dept 06/16/24 Appointment [facility] Show[facility] future appointments within next 90 [...] recent labs completed in chart? N/A None [facility] 06-02-2024 Miscellaneous Notes Recent Visits Date Type Provider Dept 05/20/24 Office Visit Lynda Rasheed MD [facility] 02/05/24 Office Visit Lynda Rasheed MD [facility] Showing recent visits within past 365 days and meeting all other requirements Future Appointments Date Type Provider Dept 06/16/24 Appointment Lynda Rasheed MD [facility] Showing future appointments within next 90 days [...] chart? N/A None documented in this encounter [facility] 06-02-2024 Telephone encounter Note Recent Visits Date Type Provider Dept 05/20/24 Office Visit Lynda Rasheed MD [facility] 02/05/24 Office Visit Lynda Rasheed MD [facility] Showing recent visits within past 365 days and meeting all other requirements Future Appointments Date Type Provider Dept 06/16/24 Appointment Lynda Rasheed MD [facility] Showing future appointments within next 90 days [...] recent labs completed in chart? N/A None [facility] 06-02-2024 Miscellaneous Notes Recent Visits Date Type Provider Dept 05/20/24 Office Visit Lynda Rasheed MD [facility] 02/05/24 Office Visit Lynda Rasheed MD [facility] Showing recent visits within past 365 days and meeting all other requirements Future Appointments Date Type Provider Dept 06/16/24 Appointment Lynda Rasheed MD [facility] Showing future appointments within next 90 days [...] chart? N/A None documented in this encounter [facility] 05-26-2024 Note My Chart messaged th e patient letting him know he was referred for smoking cessation counseling. Gave contact information, will provide follow up. [facility] 05-25-2024 Emergency department Note Pt was seen standing in his room and closed the curtain. [facility] 05-25-2024 Emergency department Note Pt was seen [...] CYST REMOVAL face EGD (HISTORICAL) 07/23/2022 Dr. Estrella-[facility] SMALL INTESTINE SURGERY UPPER GASTROINTESTINAL ENDOSCOPY 09/27/2021 [...] Depression Sister Maria De Jesus Hogan Other ([id number]) Sister Maria De Jesus Hogan agoraphobia Arthritis Sister Maria De Jesus Hogan Cancer Mother Maria De Jesus Hogan colon rectal cancer; dx after age 50 Other ([id number]) Mother Maria De Jesus Hogan alcoholism Alcohol abuse Mother Maria De Jesus Hogan Stroke Mother Maria De Jesus Hogan Other ([id number]) Father Maria De Jesus Hogan h/o rheumatic [...] 0 min Stress: Stress Concern Present (05/08/2024) [place] [employer] - Occupational Stress Questionnaire Feeling of Stress : To some extent Social Connections: Socially Isolated (05/08/2024) Social Connection and Isolation Panel [NHANES] Frequency of Communication with Friends and Family: Twice a week Frequency of Social Gatherings with Friends and Family: Never Attends Tenriism Services: Never Active Member of Clubs or [...] Medications - No data to display SCREENINGS [place] Coma Scale Best Eye Response: Spontaneous Best Verbal Response: Oriented Best Motor Response: Follows commands [place] Coma Scale Score: 15 MDM elements: The [...] initial encounter 2. Alcoholic intoxication without complication ([facility]) ([facility]) DISPOSITION Discharge 05/25/2024 04:57:48 PM PATIENT REFERRED TO: Lynda Rasheed MD [address] [facility] [address] As needed DISCHARGE MEDICATIONS: New Prescriptions No [...] Emergency Medicine Provider Goyo Melara MD 05/25/24 [id number] Patient to room 7 with c/o a fall down steps today, and hitting his head. Patient has been drinking alcohol today and reports he has drank 3 tall boys today. V/S obtained call light within reach. documented in this encounter [facility] 05-25-2024 Emergency department Triage note Patient to room 7 with c/o a fall down steps today, and hitting his head. Patient has been drinking alcohol today and reports he has drank 3 tall boys today. V/S obtained call light within reach. [facility] 05-25-2024 Physician Emergency department Note EMERGENCY DEPARTMENT [...] CYST REMOVAL face EGD (HISTORICAL) 07/23/2022 Dr. Estrella-[facility] SMALL INTESTINE SURGERY UPPER GASTROINTESTINAL ENDOSCOPY 09/27/2021 [...] Depression Sister Maria De Jesus Hogan Other ([id number]) Sister Maria De Jesus Hogan agoraphobia Arthritis Sister Maria De Jesus Hogan Cancer Mother Maria De Jesus Hogan colon rectal cancer; dx after age 50 Other ([id number]) Mother Maria De Jesus Hogan alcoholism Alcohol abuse Mother Maria De Jesus Hogan Stroke Mother Maria De Jesus Hogan Other ([phone]) Father Maria De Jesus Hogan h/o rheumatic [...] 0 min Stress: Stress Concern Present (05/08/2024) [place] [employer] - Occupational Stress Questionnaire Feeling of Stress : To some extent Social Connections: Socially Isolated (05/08/2024) Social Connection and Isolation Panel [NHANES] Frequency of Communication with Friends and Family: Twice a week Frequency of Social Gatherings with Friends and Family: Never Attends Tenriism Services: Never Active Member of Clubs or [...] Medications - No data to display SCREENINGS [place] Coma Scale Best Eye Response: Spontaneous Best [...] initial encounter 2. Alcoholic intoxication without complication ([facility]) ([facility]) DISPOSITION Discharge 05/25/2024 04:57:48 PM PATIENT REFERRED TO: Lynda Rasheed MD [address] [place] [address] [address] [facility] [id number] As needed DISCHARGE MEDICATIONS: New Prescriptions No [...] Medicine Provider Goyo Melara MD 05/25/24 1659 [facility] 05-23-2024 Telephone encounter Note We have been unable to reach your patient to schedule their testing. Test Name: TTE 2nd attempt, my chart message, TE to office, cancel request on 05/20/24. JS 1st attempt LVM on 08.10.22 SDS [facility] 05-23-2024 Miscellaneous Notes We have been unable to reach your patient to schedule their testing. Test Name: TTE 2nd attempt, my chart message, TE to office, cancel request on 05/20/24. JS 1st attempt LVM on 23 SDS documented in this encounter [facility] 05-21-2024 Note Referral received fo r ED, frequency. Reached out to pt, no answer. [facility] 05-21-2024 Telephone encounter Note Referral received for ED, frequency. Reached out to pt, no answer. [facility] 05-21-2024 Miscellaneous Notes Referral received for ED, frequency. Reached out to pt, no answer. [employer] documented in this encounter [facility] 05-20-2024 History of Present illness Narrative Transition of Care Note HPI @PATIENTNAME@ presents for tzhg-wl-[id number] visit @TODAYSDATE@ for follow up fromhospitalization for alochol withdrawal symptoms elevated liver enzymes.. Initial discharge date: 05/10/24. Interim history: Is a 58-year-old male with a past medical history of alcohol use disorder peripheral neuropathy on gabapentin fatty liver that was admitted for alcohol withdrawal to the hospital. He had been admitted prior to further alcohol withdrawal as well. 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 We discussed seeing a template maker. He has not been coughing up any [...] 0 min Stress: Stress Concern Present (05/08/2024) [place] [employer] - Occupational Stress Questionnaire Feeling of Stress : To some extent Social Connections: Socially Isolated (05/08/2024) Social Connection and Isolation Panel [NHANES] Frequency of Communication with Friends and Family: Twice a week Frequency of Social Gatherings with Friends and Family: Never Attends Tenriism Services: Never Active Member of Clubs or [...] differential; Future - CBC auto differential - [facility] G[facility]; Future Screening for colon cancer - Cancel: [facility] Gastro[facility]; Future - [facility] Gastroenterology; Future Elevated LFTs - Cancel: [facility] Gastroenterology; Future - US abdomen complete; Future - [facility] Gastroenterology; Future ED (erectile dysfunction) of non-organic origin - Urinalysis with reflex microscopic (clean catch); Future - Urine culture (clean catch); Future - [facility] Urology; Future - Urinalysis with reflex microscopic (clean catch) - Urine culture (clean catch) Urinary frequency - Urinalysis with reflex microscopic (clean catch); Future - Urine culture (clean catch); Future - [facility] Urology; Future - Urinalysis with reflex microscopic (clean catch) - Urine culture (clean catch) Pulmonary nodule - [facility] Pulmonary/Pulmonology; Future Lombardo esophagus with esophagitis - [facility] Gastroenterology; Future Diagnostic Tests performed in hospital: [...] Moderate Complexity: seen within 7-14 business days (12977) [] Severe Complexity: seen within 7 business days (92788) documented in this encounter [facility] 05-14-2024 History of Present illness Narrative Missed Session Unexcused Pt did not call or show for Scheduled Assessment on this date. documented in this encounter [facility] 05-10-2024 Nurse Note Escorted off unit [facility] 05-10-2024 Nurse Note Escorted off unit Called [...] patient. Medication rec. Done with Jace at [facility] at 1200. Patient received Nicotine Lozenge PRN as per orders at 0850. Patient arrived on unit from [facility] by stretcher. Pt's belongings secured by protective [...] questions and concerns. documented in this encounter [facility] 05-10-2024 Nurse Note Called for ride, on way. Given survey and belongings. to be here in 20. [facility] 05-10-2024 Nurse Note Denies si/hi. Discussed risk of using any etoh, street drugs, meds not prescribed or as, discussed increased risk or od or if uses following detox. Discussed discharge, IOP, stated understood and signed. Discussed red book, meetings. Given sdoh papers and discussed. Discussed script and where sent. Discussed risk etoh with naltrexone. [facility] 05-10-2024 Nurse Note Asking to be discharged, stated needs to go home today. States will call IB himself. Discussed with Dr Thrasher, and he will discharge. [facility] 05-10-2024 Note [facility] 05-10-2024 Nurse Note Discussed this morning meetings, what his plans are for super bowl, IOP. 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 States he and plan on doing more together for health, walks etc. Discussed leisure activity. [facility] 05-09-2024 Plan of care note Discussed coffee intake, states that he believes tremors are caused by the coffee. Discussed switching to water and gingerale. Also discussed the coffee may be affecting his heart rate. Up and social. Often walking the halls. Attended meetings. Appetite good. [facility] 05-09-2024 Miscellaneous Notes Discussed coffee intake, states [...] as an adult. Patient denies any history [place] or status. Family Constellation/Childhood History: Patient reports that he is currently to his living in [facility]. Patient reports that he has 3 biological children and 4 stepchildren. Patient reports that his father in his 11 years old. Patient did not report his mother is still alive currently. Patient was born and raised in [place], [place] by his mother and father. 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 Patient denies SSI/SSD. Cultural/Spirituality/Leisure: Patient denies any cultural needs or concerns at the current time. Patient denies identify any presybeterian preference. It is unknown if patient is [...] providers but denies any current treatment. Plan: HAM STRINGER patient will continue work together to establish appropriate aftercare plans based on patient sobriety, needs, resources available in the local community. Patient encouraged to engage in all activities that are offered to them while they are on the unit. Patient report needing additional current time. Patient encouraged to seek out HAM STRINGER unit staff should they identify any additional [...] dictating provider for clarification. Emergency Department Encounter [facility] ED Patient: Maria De Jesus Hogan : [...] Hamilton DO 05/07/242305 documented in this encounter [facility] 05-09-2024 History of Present illness Narrative Images from the original note were not included. [facility] Smoking Cessation Progress Note Smoking [...] counseling another time. documented in this encounter [employer] 05-09-2024 Nurse Note Patient is up and steady, withdrawn to room for majority of shift. Pt is cooperative and med compliant. Pt denies SI/HI/AVH. Pt encouraged to notify staff for any questions and concerns. [employer] 05-08-2024 Nurse Note Patient received asleep in [...] Patient denies S.I.,H.I.,AH/VH/TH. Continue to monitor patient. [employer] 05-08-2024 History and physical note Images from the original note were not included. ADDICTION MEDICINE 4E DETOX UNIT H&P Patient: Maria De Jesus Hogan Admit Date: 05/07/2024 Primary Care Physician: Lynda Rasheed MD HISTORY OF PRESENT ILLNESS Chief Complaint Patient presents with Alcohol Problem Patient presents for detox from alcohol. 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 [...] I just want to get better Per HAM STRINGER assessment: Patient first drank alcohol when he [...] where. Detoxifications: at least times times at [facility] previously, mostly on the detox unit but [...] CYST REMOVAL face EGD (HISTORICAL) 07/23/2022 Dr. Estrella-[facility] SMALL INTESTINE SURGERY UPPER GASTROINTESTINAL ENDOSCOPY 09/27/2021 normal WISDOM TOOTH EXTRACTION Family History Family History Problem Relation Name Age of Onset Depression Sister Maria De Jesus Hogan Other ([id number]) Sister Maria De Jesus Hogan agoraphobia Arthritis Sister Maria De Jesus Hogan Cancer Mother Maria De Jesus Hogan colon rectal cancer; dx after age 50 Other ([id number]) Mother Maria De Jesus Hogan alcoholism Alcohol abuse Mother Maria De Jesus Hogan Stroke Mother Maria De Jesus Hogan Other ([phone]) Father Maria De Jesus Hogan h/o rheumatic [...] 0 min Stress: Stress Concern Present (05/08/2024) [place] [employer] - Occupational Stress Questionnaire Feeling of Stress : To some extent Social Connections: Socially Isolated (05/08/2024) Social Connection and Isolation Panel [NHANES] Frequency of Communication with Friends and Family: Twice a week Frequency of Social Gatherings with Friends and Family: Never Attends Tenriism Services: Never Active Member of Clubs or [...] No Utilities: At Risk (05/08/2024) [facility] Utilities Threatened with loss of utilities: [...] clinical information on the day of visit. [facility] Note [employer] [facility] 05-08-2024 History and physical note Images from the original note were not included. ADDICTION MEDICINE 4E DETOX UNIT H&P Patient: Maria De Jesus Hogan Admit Date: 05/07/2024 Primary Care Physician: Lynda Rasheed MD HISTORY OF PRESENT ILLNESS Chief Complaint Patient presents with Alcohol Problem Patient presents for detox from alcohol. 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 [...] I just want to get better Per HAM STRINGER assessment: Patient first drank alcohol when he [...] CYST REMOVAL face EGD (HISTORICAL) 07/23/2022 Dr. Estrella-[facility] SMALL INTESTINE SURGERY UPPER GASTROINTESTINAL ENDOSCOPY 09/27/2021 normal WISDOM TOOTH EXTRACTION Family History Family History Problem Relation Name Age of Onset Depression Sister Maria De Jesus Hogan Other ([id number]) Sister Maria De Jesus Hogan agoraphobia Arthritis Sister Maria De Jesus Hogan Cancer Mother Maria De Jesus Hogan colon rectal cancer; dx after age 50 Other ([id number]) Mother Maria De Jesus Hogan alcoholism Alcohol abuse Mother Maria De Jesus Hogan Stroke Mother Maria De Jesus Hogan Other ([phone]) Father Maria De Jesus Hogan h/o rheumatic [...] 0 min Stress: Stress Concern Present (05/08/2024) [place] [employer] - Occupational Stress Questionnaire Feeling of Stress : To some extent Social Connections: Socially Isolated (05/08/2024) Social Connection and Isolation Panel [NHANES] Frequency of Communication with Friends and Family: Twice a week Frequency of Social Gatherings with Friends and Family: Never Attends Tenriism Services: Never Active Member of Clubs or [...] No Utilities: At Risk (05/08/2024) [facility] Utilities Threatened with loss of utilities: [...] day of visit. documented in this encounter [facility] 05-08-2024 Note Patient sleeping com fortably, will attempt smoking cessation counseling another time. [facility] 05-08-2024 Nurse Note Medication rec. Done with Jace at [facility] at 1200. [facility] 05-08-2024 Nurse Note Patient received Nicotine Lozenge PRN as per orders at 0850. [facility] 05-08-2024 Hospital Discharge instructions JEREMY Solis - [...] National Suicide Prevention Hotline if needed at: 3-196-174-HXYD (4102) Please call the following number should you have questions regarding your discharge or aftercare appointments: [facility] documented in this encounter [facility] 05-08-2024 Note Formatting of this n ote [...] as an adult. Patient denies any history [place] or status. Family Constellation/Childhood History: Patient reports that he is currently to his living in [facility]. Patient reports that he has 3 biological children and 4 stepchildren. Patient reports that his father in his 9 years old. Patient did not report his mother is still alive currently. Patient was born and raised in [place], [place] by his mother and father. 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 Patient denies SSI/SSD. Cultural/Spirituality/Leisure: Patient denies any cultural needs or concerns at the current time. Patient denies identify any presybeterian preference. It is unknown if patient is [...] providers but denies any current treatment. Plan: HAM STRINGER patient will continue work together to establish appropriate aftercare plans based on patient sobriety, needs, resources available in the local community. Patient encouraged to engage in all activities that are offered to them while they are on the unit. Patient report needing additional current time. Patient encouraged to seek out HAM STRINGER unit staff should they identify any additional [...] to contact the dictating provider for clarification. [facility] 05-08-2024 Note Formatting of this n [...] as an adult. Patient denies any history [place] or status. Family Constellation/Childhood History: Patient reports that he is currently to his living in [facility]. Patient reports that he has 3 biological children and 4 stepchildren. Patient reports that his father in his 11 years old. Patient did not report his mother is still alive currently. Patient was born and raised in [place], [place] by his mother and father. 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 Patient denies SSI/SSD. Cultural/Spirituality/Leisure: Patient denies any cultural needs or concerns at the current time. Patient denies identify any presybeterian preference. It is unknown if patient is [...] providers but denies any current treatment. Plan: HAM STRINGER patient will continue work together to establish appropriate aftercare plans based on patient sobriety, needs, resources available in the local community. Patient encouraged to engage in all activities that are offered to them while they are on the unit. Patient report needing additional current time. Patient encouraged to seek out HAM STRINGER unit staff should they identify any additional [...] to contact the dictating provider for clarification. [facility] 02-07-2025 Nurse Note Patient arrived on unit from [facility] by stretcher. Pt's belongings secured by protective [...] notify staff for any questions and concerns. [facility] 05-08-2024 Emergency department Note Report to Evelyn THOMPSON at [facility] on 4E [facility] 05-08-2024 Emergency department Note Report to Evelyn THOMPSON at [facility] on 4E Report to [facility] at bedside. Vitals taken. Protective at bedside for final wanding. Belongings, detox rules and paperwork sent with patient/EMS Security at bedside for a belongings check The following are the next steps in your Substance use Treatment Plan: Below are additional resources that you may find beneficial in your treatment: 12-Step: Alcohol Anonymous: [place] Brennon Anon: [phone]: 12-step program for families & friends of people with addiction. CRISIS: Homeless Hotline: 144.149.6221 [facility] 22/10 line-22/10 OFFICE: [phone] [facility]: [address] [place] [address] [phone] (24 Hours) Domestic Violence help line anytime: 410.357.1674 Crisis Hotline: 22/10- 428.499.2579 [facility] Addiction Helpline: 776.327.3730 (available 8:30 AM to 4:00 PM ) helps people across [facility] find local resources when they don't know where to turn for help. We are available 24 hours a day, 7 days a week. For help, simply dial to speak to one of our trained professionals. DETOX TREATMENT: [facility], [place], [place] [phone] /[facility] Crisis Center: anytime @ 718.577.1418 for alcohol & drug addiction help. [facility], [place], [place] [phone] [facility] [place]: [phone] [place], [place]: [phone], [facility] [place]: [phone] [place], [place] [phone] Adolescent detox [place], [place] [phone] [facility] [place]: [phone] [facility], [place], [place] [phone]. [phone] [facility], [facility] & detox & Sober living [phone] [place], [place] (pt. must be medically cleared prior to admission in ED) [facility], [place], [place] [phone] OUTPATIENT TREATMENT: [facility] @ [place] [phone]. Intensive Outpatient Programs- [facility] [place], [place] [phone] [place], [place] [phone] [place], [place] [phone] [facility]: [place], [place] [phone] or [phone]. [facility]: [phone] [facility]: [phone], [place]: [phone] [facility], [place], [place]: [phone] [facility], [place], [place]: [phone] [facility], [place]: [phone], [place]: [phone] [facility] [place]. [place]: [phone] [facility], [facility] & Sober living [phone] [facility], [place], [place] [phone] Behavioral Health Services: [facility]: Hikcy-[phone], [place]/Bmbbpo-[phone], [place]- [phone] [facility] Behavioral [facility], [place]: [phone], [place]: [phone] [facility], [place], [place] [phone] [facility], [place], [place] [phone] [facility] [place] [phone], inpt, services, dual dx. Tx. with detox. [facility] SERVICES: [place] Guide [place], [place] [phone] [facility] [place], [place] [phone] [facility] [phone] [facility] SERVICES: One [employer] (180): [place], [place] [phone] [facility] [place] SHEETS & [place]: [phone] RESIDENTIAL TREATMENT FACILITIES: [facility]: inpt. Or outpt. - [phone] [facility], [place], [place] [phone] [place], [place] [phone] Community Assessment & Treatment Services (CATS) @ [facility] [phone] [facility] tx., [place], [place] [phone] (admission coordinated by ADM Gurvinder Landers ext 303) [facility] [place]: [phone]; Men's services inpt. & women services - Outpt. [place], [place] [phone] Located within [facility], [place], [place] [phone] [facility], [place], [place] [phone] [facility], [place], [place] [phone] [facility], [place], [place] [phone] [facility] - [place], [place] [phone] [facility] Services, [place], [place] [phone] [place], [place] [phone] [facility], [facility] & detox & Sober living [phone] OTHER SERVICES: [employer] - [employer] Worker Service: [phone] [facility]: [phone] ext. [phone] Medicaid Health Coverage: [place] JFS: [phone] Dr. Hamilton at bedside speaking with pt. EMERGENCY DEPARTMENT ENCOUNTER Pt Name: Maria De Jesus Hogan Birthdate 1965 Date of evaluation: 05/07/2024 ED Provider: JUAN Lang CNP This patient was seen in conjunction with Dr. Hamilton CHIEF COMPLAINT Chief Complaint Patient presents with Alcohol Problem Patient presents for detox from alcohol. 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 [...] withdrawal, with unspecified complication (HCC) 10/02/2019 Alcoholism ([facility]/HCC) (HCC) Anxiety Arthritis Maria De Jesus Cerebral artery occlusion with cerebral infarction (HCC) Cerebrovascular disease Depression GERD (gastroesophageal reflux disease) Maria De Jesus Hypertension Insomnia SURGICAL HISTORY Past Surgical History: Procedure Laterality Date COLONOSCOPY 06/10/2020 EGD/Dr Madison/B CYST REMOVAL face EGD (HISTORICAL) 07/23/2022 Dr. [facility]rella-[facility] SMALL INTESTINE SURGERY UPPER GASTROINTESTINAL ENDOSCOPY 09/27/2021 [...] Depression Sister Maria De Jesus Hogan Other ([id number]) Sister Maria De Jesus Hogan agoraphobia Arthritis Sister Maria De Jesus Hogan Cancer Mother Maria De Jesus Hogan colon rectal cancer; dx after age 50 Other ([id number]) Mother Maria De Jesus Hogan alcoholism Alcohol abuse Mother Maria De Jesus Hogan Stroke Mother Maria De Jesus Hogan Other ([id number]) Father Maria De Jesus Hogan h/o rheumatic [...] min Stress: No Stress Concern Present (01/20/2024) [place] [employer] - Occupational Stress Questionnaire Feeling of Stress : Not at all Social Connections: Unknown (01/28/2024) Social Connection and Isolation Panel [NHANES] Frequency of Communication with Friends and Family: Twice a week Frequency of Social Gatherings with Friends and Family: Patient unable to answer Attends Tenriism Services: Never Active Member of Clubs or Organizations: No Attends Club or Organization Meetings: Never Marital Status: Recent Concern: Social Connections - Socially Isolated (01/20/2024) Social Connection and Isolation Panel [NHANES] Frequency of Communication with Friends and Family: Never Frequency of Social Gatherings with Friends and Family: Never Attends Tenriism Services: Never Active Member of Clubs or [...] 11:06 PM EST documented in this encounter [facility] 05-08-2024 Emergency department Note Report to [facility] at bedside. Vitals taken. Protective at bedside for final wanding. Belongings, detox rules and paperwork sent with patient/EMS [facility] 05-07-2024 Emergency department Note Security at bedside for a belongings check [facility] 05-07-2024 Emergency department Note The following are the next steps in your Substance use Treatment Plan: Below are additional resources that you may find beneficial in your treatment: 12-Step: Alcohol Anonymous: [place]ronaa.org Brennon Anon: [phone]: 12-step program for families & friends of people with addiction. CRISIS: Homeless Hotline: 624.526.2699 [facility]OMELESS SHELTERS [facility] 22/10 line-22/10 OFFICE: [phone] [facility]: [address] [facility], [place] [address] [phone] (24 Hours) Domestic Violence help line anytime: 322.272.7350 Crisis Hotline: 22/10- 226.287.2676 ADM Addiction Helpline: 184.687.1627 (available 8:30 AM to 4:00 PM ) 05-02-1 2--1 helps people across [facility] find local resources when they don't know where to turn for help. We are available 24 hours a day, 7 days a week. For help, simply dial to speak to one of our trained professionals. DETOX TREATMENT: [facility] [place], [place] [phone] /[facility] Crisis Center: anytime @ [phone] for alcohol & drug addiction help. [facility], [place], [place] [phone] [facility] [place]: [phone] [place], [place]: [phone], [facility] [place]: [phone] [place], [place] [phone] Adolescent detox [place], [place] [phone] [facility] [place], [place]: [phone] [facility], [place], [place] [phone] ext. [phone] [facility], [facility] & detox & Sober living [phone] [place], [place] (pt. must be medically cleared prior to admission in ED) [place], [place] [phone] OUTPATIENT TREATMENT: [facility] Addiction Health @ [place], [place] [phone]. Intensive Outpatient Programs- [facility] [place], [place] [phone] [place], [place] [phone] [facility] [place] [phone] [facility] Addiction Treatment: [place], [place] [phone] or [phone]. [facility]: [phone] [facility], [place]: [phone], [place]: [phone] [facility], [place], [place]: [phone] [facility], [place], [place]: [phone] [facility] Behavioral [facility], [place]: [phone], [place]: [phone] [facility] [place]. [place]: [phone] [facility], [facility] & Sober living [phone] [facility], [place], [place] [phone] Behavioral Health Services: [facility]: [phone]-[phone], [phone], [place]- [phone] [facility], [place]: [phone], [place]: [phone] [facility] Behavioral Health, [place], [place] [phone] [facility], [place], [place] [phone] [facility], [place], [place] [phone], mady services, dual dx. Tx. with detox. [facility] SERVICES: [place], [place] [phone] [facility] [place], [place] [phone] [facility] [phone] [facility] SERVICES: [employer] (180): [place] [phone] [place] SHEETS & [place]: [phone] RESIDENTIAL TREATMENT FACILITIES: [facility]: inpt. Or outpt. - [phone] [facility], [place], [place] [phone] [facility], [place], [place] [phone] Community Assessment & Treatment Services (CATS) @ [facility] [phone] [facility] Residential tx., [place], [place] [phone] (admission coordinated by ADM Gurvinder Landers ext [phone]) [facility] Residential Tx., [place], [place]: [phone]; Men's services inpt. & women services - Outpt. [facility], [place], [place] [phone] Located within [facility], [place], [place] [phone] [facility], [place], [place] [phone] [facility], [place], [place] [phone] [facility], [place], [place] [phone] [facility] - [place], [place], [place] [phone] [facility], [place], [place] [phone] [place], [place] [phone] [facility], [facility] & detox & Sober living [phone] OTHER SERVICES: [employer] - Peer Cylinder Worker Service: [phone] [facility]: [phone] ext. [phone] Medicaid Health Coverage: [place]. S: [phone] [facility] [employer] 05-07-[address] Hamilton at bedside speaking with pt. [facility] [employer] 05-07-2024 Note Formatting of this n ote is different from the original. Emergency Department Encounter [facility] ED Patient: Maria De Jesus Hogan : [...] [employer] Johnny Hamilton DO 05/07/24 2306 [employer] Phone: 05-07-2024 Note Formatting of this n ote is different from the original. Emergency Department Encounter [facility] ED Patient: Maria De Jesus Hogan : [...] [facility] [employer] Johnny Hamilton DO 05/07/242305 [facility] That{img} Phone: 05-07-2024 Physician Emergency department Note EMERGENCY DEPARTMENT ENCOUNTER Pt Name: Maria De Jesus Hogan Birthdate 1965 Date of evaluation: 05/07/2024 ED Provider: Shelly Clarke APRN - JAMAL This patient was seen in conjunction with Dr. Hamiltno CHIEF COMPLAINT Chief Complaint Patient presents with Alcohol Problem Patient presents for detox from alcohol. 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 [...] CYST REMOVAL face EGD (HISTORICAL) 07/23/2022 Dr. Estrella-[facility] SMALL INTESTINE SURGERY UPPER GASTROINTESTINAL ENDOSCOPY 09/27/2021 [...] Depression Sister Maria De Jesus Hogan Other ([id number]) Sister Maria De Jesus Hogan agoraphobia Arthritis Sister Maria De Jesus Hogan Cancer Mother Maria De Jesus Hogan colon rectal cancer; dx after age 50 Other ([id number]) Mother Maria De Jesus Hogan alcoholism Alcohol abuse Mother Maria De Jesus Hogan Stroke Mother Maria De Jesus Hogan Other ([id number]) Father Maria De Jesus Hogan h/o rheumatic [...] min Stress: No Stress Concern Present (01/20/2024) [place] [employer] - Occupational Stress Questionnaire Feeling of Stress : Not at all Social Connections: Unknown (01/28/2024) Social Connection and Isolation Panel [NHANES] Frequency of Communication with Friends and Family: Twice a week Frequency of Social Gatherings with Friends and Family: Patient unable to answer Attends Tenriism Services: Never Active Member of Clubs or Organizations: No Attends Club or Organization Meetings: Never Marital Status: Recent Concern: Social Connections - Socially Isolated (01/20/2024) Social Connection and Isolation Panel [NHANES] Frequency of Communication with Friends and Family: Never Frequency of Social Gatherings with Friends and Family: Never Attends Tenriism Services: Never Active Member of Clubs or [...] Hamilton DO at 05/07/2024 11:06 PM EST [facility] [employer] Work Phone: 04-21-2024 Note LVM letting the anjali ent know they were referred for smoking cessation counseling. Gave contact information, will provide follow up. Letter & education mailed to the home address. [facility] 04-12-2024 Note [facility] 04-12-2024 Plan of care note Problem: Pain - Adult Goal: Verbalizes/displays adequate comfort level or baseline comfort level Outcome: Completed Problem: Safety - Adult Goal: Free from fall injury Outcome: Completed Problem: Problem Interventions Goal: Assess Nutritional Intake Outcome: Completed [facility] 04-12-2024 Miscellaneous Notes Problem: Pain - Adult [...] comfort level Outcome: Progressing Flowsheets (Taken 04/11/2024 9665) Verbalizes/displays adequate comfort level or baseline comfort level: Encourage patient to monitor pain and request assistance Assess pain using appropriate pain scale Problem: Safety - Adult Goal: Free from fall injury Outcome: Progressing documented in this encounter [facility] 04-12-2024 History of Present illness Narrative Images from the original note were not included. ADDICTION MEDICINE PROGRESS NOTE Patient: Maria De Jesus Hogan Problem List: Principal Problem: Alcoholic intoxication without complication (CMS/HCC) (HCC) SUBJECTIVE Chief Complaint Patient presents with Alcohol Problem Patient seeking detox from ETOH. 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 Last 4 CIwA scores per RN assessments [...] of ETOH was on the way to [facility] ED. Phenobarbital taper to manage ETOH withdrawal [...] IM and ADM Labs/tests/tasks to review: N/A Lead Painter to coordinate care with: N/A. A total [...] loss Fluid Accumulation: No significant fluid accumulation Enterprise Systems Administrator Strength: Not Performed Nutrition Assessment: 58 y.o. [...] On: Kcal/kg Weight Used for Energy Requirements: [place] Weight for Energy Calculation (kg): 78 kg Total Energy Requirements (kcals/day): 3671-5068 (25-30) Weight Used for Protein Requirements: [place] Weight in Kg Used for Protein Requirements: [...] (235 lb) % Weight Change (Calculated): -4.3 [place] Body Weight (lbs) (Calculated): 172 lbs [place] Body Weight (Kg) (Calculated): 78 kg % [place] Body Weight (Calculated): 130.8 % BMI (kg/m2) [...] Weight Discharge Planning: Nanette Munson RD Contact: *[phone] or via Secure Chat Hospitalist Progress Note 04/11/2024 [phone]: Please page me ([phone]) for patient care issues. [phone]: Please page IMS night Hospitalist for any issues. Subjective: Admit Date: 04/09/2024 PCP: Lynda Rasheed MD Room#: 232-01/232-01 A Interval History: Patient is sleeping comfortably, no signs of distress noticed No other significant overnight issues. Adult diet Regular; Low Sodium (2 gm) @[id number]@ 24HR INTAKE/OUTPUT: Intake/Output Summary (Last 24 hours) [...] withdrawal, with unspecified complication (HCC) 10/02/2019 Alcoholism ([facility]/HCC) (HCC) Anxiety Arthritis Maria De Jesus Cerebral [...] MD Division of Hospitalist Medicine Inpatient Medical Services/[facility] PAGER: [phone] Images from the original note were not included. ADDICTION MEDICINE PROGRESS NOTE Patient: Maria De Jesus Hogan Problem List: Principal Problem: Alcoholic intoxication without complication (CMS/HCC) (HCC) SUBJECTIVE Chief Complaint Patient presents with Alcohol Problem Patient seeking detox from ETOH. 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 Last 4 CIWA scores per RN assessments [...] of ETOH was on the way to [facility] ED. Phenobarbital taper to manage ETOH withdrawal [...] ADM Labs/tests/tasks to review: Lytes and LFTs. Lead Painter to coordinate care with: N/A. A total of 35 minutes were spent reviewing the patient's records, evaluating the patient, entering orders, coordinating care with the treatment team, and creating this note. documented in this encounter [facility] 04-12-2024 Note Pt educated about his plan of ca re [facility] 04-12-2024 Plan of care note Pt educated about his plan of care [facility] 04-11-2024 Plan of care note Problem: Pain - Adult Goal: Verbalizes/displays adequate comfort level or baseline comfort level Outcome: Progressing Problem: Safety - Adult Goal: Free from fall injury Outcome: Progressing Problem: Problem Interventions Goal: Assess Nutritional Intake Outcome: Progressing [facility] [employer] 04-11-2024 Plan of care note Problem: Pain - Adult Goal: Verbalizes/displays adequate comfort level or baseline comfort level Outcome: Progressing Flowsheets (Taken 04/11/2024 0456) Verbalizes/displays adequate comfort level or baseline comfort level: Encourage patient to monitor pain and request assistance Assess pain using appropriate pain scale Problem: Safety - Adult Goal: Free from fall injury Outcome: Progressing [facility] [employer] 04-10-2024 Nurse Note Pt refusing to let RN put side rail of ED stretcher up. Pt educated on seizure precautions and dangers with withdrawls. Pt still refusing. Will continue to monitor. [facility] [employer] 04-10-2024 Nurse Note Pt refusing to let RN put side rail of ED stretcher up. Pt educated on seizure precautions and dangers with withdrawls. Pt still refusing. Will continue to monitor. 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 The Pt, Mr. Hogan, is a 58 y/o M with a PMHx of Severe AUD, TUD, BPH and Lombardo's esophagus who presented to [facility] on (04/09/24) requesting chemical detox. ADM consulted [...] but Pt cannot recall where. Detoxifications: x1 [facility] (per Pt). 12 Step Meetings: Has [...] CYST REMOVAL face EGD (HISTORICAL) 07/23/2022 Dr. Estrella-[facility] SMALL INTESTINE SURGERY UPPER GASTROINTESTINAL ENDOSCOPY 09/27/2021 normal WISDOM TOOTH EXTRACTION Family History Family History Problem Relation Name Age of Onset Depression Sister Maria De Jesus Hogan Other (08570) Sister Maria De Jesus Hogan agoraphobia Arthritis Sister Maria De Jesus Hogan Cancer Mother Maria De Jesus Hogan colon rectal cancer; dx after age 50 Other ([id number]) Mother Maria De Jesus Hogan alcoholism Alcohol abuse Mother Maria De Jesus Hogan Stroke Mother Maria De Jesus Hogan Other (83583) Father Maria De Jesus Hogan h/o rheumatic fever, cardiac arrest due to bee sting Hypertension Father Maria De Jesus Hogan [employer] Tobacco Use: High Risk (04/09/2024) Patient History [...] min Stress: No Stress Concern Present (01/20/2024) [place] [employer] Health - Occupational Stress Questionnaire Feeling of Stress : Not at all Social Connections: Unknown (01/28/2024) Social Connection and Isolation Panel [NHANES] Frequency of Communication with Friends and Family: Twice a week Frequency of Social Gatherings with Friends and Family: Patient unable to answer Attends Tenriism Services: Never Active Member of Clubs or Organizations: No Attends Club or Organization Meetings: Never Marital Status: Recent Concern: Social Connections - Socially Isolated (01/20/2024) Social Connection and Isolation Panel [NHANES] Frequency of Communication with Friends and Family: Never Frequency of Social Gatherings with Friends and Family: Never Attends Tenriism Services: Never Active Member of Clubs or [...] Utilities: Not At Risk (01/20/2024) [facility] Utilities Threatened with loss of utilities: [...] 409 ms QTC Interval 493 ms P [place] 65 degrees QRS [place] 59 degrees T Wave [place] 44 degrees [place] Interval 162 ms CBC auto differential Collection [...] of ETOH was on the way to [facility] ED. Phenobarbital taper to manage ETOH withdrawal [...] stabilization. Labs/tests/tasks to review: Lytes and LFTs. Lead Painter to coordinate care with: N/A. A total of 90 minutes were spent reviewing the patient's records, evaluating the patient, entering orders, coordinating care with the treatment team, and creating this note. 30 minutes reviewing prior records. 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 The Pt, Mr. Hogan, is a 58 y/o M with a PMHx of Severe AUD, TUD, BPH and Lombardo's esophagus who presented to [facility] on (04/09/24) requesting chemical detox. ADM consulted [...] but Pt cannot recall where. Detoxifications: x1 [facility] [employer] (per Pt). 12 Step Meetings: Has attended [...] CYST REMOVAL face EGD (HISTORICAL) 07/23/2022 Dr. Estrella-[facility] SMALL INTESTINE SURGERY UPPER GASTROINTESTINAL ENDOSCOPY 09/27/2021 normal WISDOM TOOTH EXTRACTION Family History Family History Problem Relation Name Age of Onset Depression Sister Maria De Jesus Hogan Other ([id number]) Sister Maria De Jesus Hogan agoraphobia Arthritis Sister Maria De Jesus Hogan Cancer Mother Maria De Jesus Hogan colon rectal cancer; dx after age 50 Other ([id number]) Mother Maria De Jesus Hogan alcoholism Alcohol abuse Mother Maria De Jesus Hogan Stroke Mother Maria De Jesus Hogan Other ([id number]) Father Maria De Jesus Hogan h/o rheumatic fever, cardiac arrest due to bee sting Hypertension Father Maria De Jesus Hogan [employer] Tobacco Use: High Risk (04/09/2024) Patient History [...] min Stress: No Stress Concern Present (01/20/2024) [place] [employer] Health - Occupational Stress Questionnaire Feeling of Stress : Not at all Social Connections: Unknown (01/28/2024) Social Connection and Isolation Panel [NHANES] Frequency of Communication with Friends and Family: Twice a week Frequency of Social Gatherings with Friends and Family: Patient unable to answer Attends Tenriism Services: Never Active Member of Clubs or Organizations: No Attends Club or Organization Meetings: Never Marital Status: Recent Concern: Social Connections - Socially Isolated (01/20/2024) Social Connection and Isolation Panel [NHANES] Frequency of Communication with Friends and Family: Never Frequency of Social Gatherings with Friends and Family: Never Attends Tenriism Services: Never Active Member of Clubs or [...] Utilities: Not At Risk (01/20/2024) [facility] Utilities Threatened with loss of utilities: [...] 409 ms QTC Interval 493 ms P [place] 65 degrees QRS [place] 59 degrees T Wave [place] 44 degrees [place] Interval 162 ms CBC auto differential Collection [...] of ETOH was on the way to [facility] ED. Phenobarbital taper to manage ETOH withdrawal [...] stabilization. Labs/tests/tasks to review: Lytes and LFTs. Lead Painter to coordinate care with: N/A. A total of 90 minutes were spent reviewing the patient's records, evaluating the patient, entering orders, coordinating care with the treatment team, and creating this note. 30 minutes reviewing prior records. documented in this encounter [facility] [facility] 04-10-2024 Emergency department Note Pt sleeping [facility] 04-10-2024 Emergency department Note Pt sleeping Pt sleeping Pt sleeping Pt sleeping EMERGENCY DEPARTMENT ENCOUNTER Pt Name: Maria De Jesus Hogan Birthdate 1965 Date of evaluation: 04/09/2024 ED Provider: Kolby Whiteside DO CHIEF COMPLAINT Chief Complaint Patient presents with Alcohol Problem Patient seeking detox from ETOH. 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 HISTORY OF PRESENT ILLNESS (Location/Symptom, Timing/Onset, Context/Setting, [...] CYST REMOVAL face EGD (HISTORICAL) 07/23/2022 Dr. Estrella-[facility] SMALL INTESTINE SURGERY UPPER GASTROINTESTINAL ENDOSCOPY 09/27/2021 [...] Depression Sister Maria De Jesus Hogan Other ([id number]) Sister Maria De Jesus Hogan agoraphobia Arthritis Sister Maria De Jesus Hogan Cancer Mother Maria De Jesus Hogan colon rectal cancer; dx after age 50 Other ([id number]) Mother Maria De Jesus Hogan alcoholism Alcohol abuse Mother Maria De Jesus Hogan Stroke Mother Maria De Jesus Hogan Other ([phone]) Father Maria De Jesus Hogan h/o rheumatic [...] min Stress: No Stress Concern Present (01/20/2024) [place] [employer] - Occupational Stress Questionnaire Feeling of Stress : Not at all Social Connections: Unknown (01/28/2024) Social Connection and Isolation Panel [NHANES] Frequency of Communication with Friends and Family: Twice a week Frequency of Social Gatherings with Friends and Family: Patient unable to answer Attends Tenriism Services: Never Active Member of Clubs or Organizations: No Attends Club or Organization Meetings: Never Marital Status: Recent Concern: Social Connections - Socially Isolated (01/20/2024) Social Connection and Isolation Panel [NHANES] Frequency of Communication with Friends and Family: Never Frequency of Social Gatherings with Friends and Family: Never Attends Tenriism Services: Never Active Member of Clubs or [...] [facility] (Per Emergency Physician): Interpretation per the [...] Abnormal ETHANOL IN SER/PLAS 334 (*) 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 NOTE: This [...] Culture. Procedure Abnormality Status --------- ------ Complete Urinalysis[[id number]] Normal Final result Please view results for [...] of 04/09/242254 Alcoholic intoxication without complication (CMS/HCC) ([facility]) The patient presented with chief complaint of [...] IMPRESSION 1. Alcoholic intoxication without complication (CMS/HCC) ([facility]) DISPOSITION Admit 04/09/2024 10:55:05 PM PATIENT REFERRED [...] Emergency Medicine Provider Kolby Whiteside DO 04/09/24 [id number] Emergency Department Encounter Location: [facility] ED Patient: Maria De Jesus Hogan : [...] 409 ms QTC Interval 493 ms P [place] 65 degrees QRS [place] 59 degrees T Wave [place] 44 degrees [place] Interval 162 ms CBC auto differential Collection [...] I Steve Demarco MD am the primary substance abuse counselor of record. Final Impression 1. 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 documented in this encounter [facility] 04-10-2024 Emergency department Note Pt sleeping [facility] 04-10-2024 Emergency department Note Pt sleeping [facility] 04-10-2024 Emergency department Note Pt sleeping [facility] 04-10-2024 History and physical note [...] CYST REMOVAL face EGD (HISTORICAL) 07/23/2022 Dr. Estrella-[facility] SMALL INTESTINE SURGERY UPPER GASTROINTESTINAL ENDOSCOPY 09/27/2021 [...] min Stress: No Stress Concern Present (01/20/2024) [place] [employer] Occupational Health - Occupational Stress Questionnaire Feeling of Stress : Not at all Social Connections: Unknown (01/28/2024) Social Connection and Isolation Panel [NHANES] Frequency of Communication with Friends and Family: Twice a week Frequency of Social Gatherings with Friends and Family: Patient unable to answer Attends Tenriism Services: Never Active Member of Clubs or Organizations: No Attends Club or Organization Meetings: Never Marital Status: Recent Concern: Social Connections - Socially Isolated (01/20/2024) Social Connection and Isolation Panel [NHANES] Frequency of Communication with Friends and Family: Never Frequency of Social Gatherings with Friends and Family: Never Attends Tenriism Services: Never Active Member of Clubs or [...] Depression Sister Maria De Jesus Hogan Other ([phone]) Sister Maria De Jesus Hogan agoraphobia Arthritis Sister Maria De Jesus Hogan Cancer Mother Maria De Jesus Hogan colon rectal cancer; dx after age 50 Other ([id number]) Mother Maria De Jesus PalmaO'Brien alcoholism Alcohol abuse Mother Maria De Jesus Samira Stroke Mother Maria De Jesus Samira Other ([phone]) Father Maria De Jesus PalmaSamira h/o rheumatic [...] - DO NOT do CPR, intubation] [_] [DNR-CORE ANALYST - Comfort care only] [_] DNR form [...] John Sahni MD Division of Hospitalist Medicine [facility] [employer] Work Phone: 04-10-2024 Note [employer] [facility] 04-10-2024 History and physical note Attending History [...] CYST REMOVAL face EGD (HISTORICAL) 07/23/2022 Dr. Estrella-[facility] SMALL INTESTINE SURGERY UPPER GASTROINTESTINAL ENDOSCOPY 09/27/2021 [...] min Stress: No Stress Concern Present (01/20/2024) [place] [employer] - Occupational Stress Questionnaire Feeling of Stress : Not at all Social Connections: Unknown (01/28/2024) Social Connection and Isolation Panel [NHANES] Frequency of Communication with Friends and Family: Twice a week Frequency of Social Gatherings with Friends and Family: Patient unable to answer Attends Tenriism Services: Never Active Member of Clubs or Organizations: No Attends Club or Organization Meetings: Never Marital Status: Recent Concern: Social Connections - Socially Isolated (01/20/2024) Social Connection and Isolation Panel [NHANES] Frequency of Communication with Friends and Family: Never Frequency of Social Gatherings with Friends and Family: Never Attends Tenriism Services: Never Active Member of Clubs or [...] Depression Sister Maria De Jesus Hogan Other ([phone]) Sister Maria De Jesus Hogan agoraphobia Arthritis Sister Maria De Jesus Hogan Cancer Mother Maria De Jesus Hogan colon rectal cancer; dx after age 50 Other ([id number]) Mother Maria De Jesus Hogan alcoholism Alcohol abuse Mother Maria De Jesus Hogan Stroke Mother Maria De Jesus Hogan Other ([phone]) Father Maria De Jesus Hogan h/o rheumatic [...] - DO NOT do CPR, intubation] [_] [DNR-CORE ANALYST - Comfort care only] [_] DNR form [...] life care, with patient and/or family/surrogate. John aShni MD Division of Hospitalist Medicine [facility] documented in this encounter [facility] 04-09-2024 Emergency department Triage note Patient seeking detox from ETOH. 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 [facility] 04-09-2024 Physician Emergency department Note EMERGENCY DEPARTMENT ENCOUNTER Pt Name: Maria De Jesus Hogan Birthdate 1965 Date of evaluation: 04/09/2024 ED Provider: Kolby Whiteside DO CHIEF COMPLAINT Chief Complaint Patient presents with Alcohol Problem Patient seeking detox from ETOH. 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 HISTORY OF PRESENT ILLNESS (Location/Symptom, Timing/Onset, Context/Setting, [...] CYST REMOVAL face EGD (HISTORICAL) 07/23/2022 Dr. Estrella-[facility] SMALL INTESTINE SURGERY UPPER GASTROINTESTINAL ENDOSCOPY 09/27/2021 [...] Depression Sister Maria De Jesus Hogan Other ([phone]) Sister Maria De Jesus Hogan agoraphobia Arthritis Sister Maria De Jesus Hogan Cancer Mother Maria De Jesus Hogan colon rectal cancer; dx after age 50 Other ([id number]) Mother Maria De Jesus Hogan alcoholism Alcohol abuse Mother Maria De Jesus Hogan Stroke Mother Maria De Jesus Hogan Other ([phone]) Father Maria De Jesus Hogan h/o rheumatic [...] min Stress: No Stress Concern Present (01/20/2024) [place] [employer] - Occupational Stress Questionnaire Feeling of Stress : Not at all Social Connections: Unknown (01/28/2024) Social Connection and Isolation Panel [NHANES] Frequency of Communication with Friends and Family: Twice a week Frequency of Social Gatherings with Friends and Family: Patient unable to answer Attends Tenriism Services: Never Active Member of Clubs or Organizations: No Attends Club or Organization Meetings: Never Marital Status: Recent Concern: Social Connections - Socially Isolated (01/20/2024) Social Connection and Isolation Panel [NHANES] Frequency of Communication with Friends and Family: Never Frequency of Social Gatherings with Friends and Family: Never Attends Tenriism Services: Never Active Member of Clubs or [...] Abnormal ETHANOL IN SER/PLAS 334 (*) 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 NOTE: This [...] Culture. Procedure Abnormality Status --------- ------ Complete Urinalysis[[id number]] Normal Final result Please view results for [...] of 04/09/242254 Alcoholic intoxication without complication (CMS/HCC) ([facility]) The patient presented with chief complaint of [...] IMPRESSION 1. Alcoholic intoxication without complication (CMS/HCC) ([facility]) DISPOSITION Admit 04/09/2024 10:55:05 PM PATIENT REFERRED [...] Emergency Medicine Provider Kolby Whiteside DO 04/09/24225[address] [facility] 04-09-2024 Physician Emergency department Note Emergency Department Encounter Location: [facility] ED Patient: Maria De Jesus Hogan : [...] 409 ms QTC Interval 493 ms P [place] 65 degrees QRS [place] 59 degrees T Wave [place] 44 degrees [place] Interval 162 ms CBC auto differential Collection [...] I Steve Demarco MD am the primary substance abuse counselor of record. Final Impression 1. Alcoholic intoxication without complication (CMS/HCC) ([facility]) DISPOSITION Admit 04/10/2024 12:06:32 AM (Please note that portions of this note may have been completed with a voice recognition program. Efforts were made to edit the dictations but occasionally words are mis-transcribed.) Steve Demarco MD [employer] Steve Demarco MD 04/10/24 0007 [facility] 03-09-2024 Note My Chart messaged th e patient letting him know he was referred for smoking cessation counseling. Gave contact information, will provide follow up. [facility] 03-02-2024 Note LVM letting the anjali ent know they were referred for smoking cessation counseling. Gave contact information, will provide follow up. [facility] 02-28-2024 History of Present illness Narrative Chief [...] min Stress: No Stress Concern Present (01/20/2024) [place] [employer]ational Health - Occupational Stress Questionnaire Feeling of Stress : Not at all Social Connections: Unknown (01/28/2024) Social Connection and Isolation Panel [NHANES] Frequency of Communication with Friends and Family: Twice a week Frequency of Social Gatherings with Friends and Family: Patient unable to answer Attends Tenriism Services: Never Active Member of Clubs or Organizations: No Attends Club or Organization Meetings: Never Marital Status: Recent Concern: Social Connections - Socially Isolated (01/20/2024) Social Connection and Isolation Panel [NHANES] Frequency of Communication with Friends and Family: Never Frequency of Social Gatherings with Friends and Family: Never Attends Tenriism Services: Never Active Member of Clubs or [...] Depression Sister Maria De Jesus Hogan Other ([phone]) Sister Maria De Jesus Hogan agoraphobia Arthritis Sister Maria De Jesus Hogan Cancer Mother Maria De Jesus Hogan colon rectal cancer; dx after age 50 Other ([id number]) Mother Maria De Jesus Hogan alcoholism Alcohol abuse Mother Maria De Jesus Hogan Stroke Mother Maria De Jesus Hogan Other ([phone]) Father Maria De Jesus Hogan h/o rheumatic [...] cessation - Ambulatory referral to Smoking Cessation Compo Conveyor Operator 4. Alcohol abuse May complicate adherence to medical plan and also would be a concern if surgery required. Follow-up: 3 months with [facility] (prefers [facility]) documented in this encounter [facility] 02-28-2024 Instructions Manpreet Patiño MA - 02/28/2024 9:30 AM EST YOUR APPOINTMENT TODAY WAS WITH THE [facility] LUNG NODULE [facility], COPD CLINIC, PULMONARY AND SLEEP MEDICINE OFFICE. PLEASE CALL OUR OFFICE AT [phone] IF YOU HAVE NOT RECEIVED YOUR TEST [...] to make improvements. COVID-19 VACCINATION INFORMATION: PH. [phone] HE[facility]/CORONAVIRUS/VACCINE [facility] Scheduling [phone] [facility] Sleep Scheduling [phone] documented in this encounter [facility] 02-18-2024 History of Present illness Narrative Lung [...] Dx: Lung Rads 4A Screening Presenter: Marina Hartley RRT Clin: T N M Stage: Path: [...] from this recommendation. documented in this encounter [facility] 02-14-2024 Note Received 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 referral to [facility]. 1st attempt- VMX1. Will offer pt 12/[address] Barajas in [facility]. [facility] 02-14-2024 Telephone encounter Note Received 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 referral to [facility]. 1st attempt- VMX1. Will offer pt 12/[address] Barajas in [facility]. [facility] 02-14-2024 Miscellaneous Notes Received 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 referral to [facility]. 1st attempt- VMX1. Will offer pt 12/[address] Barajas in [facility]. I was able to speak with patient, I notified him of the results, and provided him with the number to the clinic so he can call to set up an appointment. [facility] also [facility] well [...] CT and an expedited referral to the [facility] lung nodule clinic is recommended. If you agree, please notify patient of findings and consider placing lung nodule clinic referral at this time. Navigators are available to assist with expediting follow-up. Imaging will be reviewed at the upcoming lung nodule review conference on 02/18/2024 and recommendations will be shared with providers. documented in this encounter [facility] 02-14-2024 Telephone encounter Note I was able to speak with patient, I notified him of the results, and provided him with the number to the clinic so he can call to set up an appointment. I also sent information to his [facility] for there referral for him as well to has access to that way. [facility] 02-13-2024 Telephone encounter Note Called and left [...] patient is aware of results and referral [facility] 02-13-2024 Telephone encounter Note Maria De Jesus Hogan 1965 had an abnormal Lung Rads 4A lung screening CT and an expedited referral to the [facility] lung nodule clinic is recommended. If you agree, please notify patient of findings and consider placing lung nodule clinic referral at this time. Navigators are available to assist with expediting follow-up. Imaging will be reviewed at the upcoming lung nodule review conference on 02/18/2024 and recommendations will be shared with providers. [facility] 02-13-2024 Telephone encounter Note error [facility] 02-13-2024 Miscellaneous Notes error documented in this encounter [facility] 02-06-2024 Telephone encounter Note Seen yesterday No future appt [facility] 02-06-2024 Miscellaneous Notes Seen yesterday No future appt documented in this encounter [facility] 02-06-2024 Telephone encounter Note 06/26/23 last filled Seen yesterday. No future appt set up [facility] 02-06-2024 Miscellaneous Notes 06/26/23 last filled Seen yesterday. No future appt set up documented in this encounter [facility] 02-05-2024 History of Present illness Narrative Images from the original note were not included. [facility] [address] [facility] [address] Dept: [phone] Dept Loc: [phone] Reason for Visit: Follow-up (Med Check ) [...] colon cancer referral for colonoscopy done - [facility] General Surgery - Sotero Madsen MD 5. [...] Now he has been working with the carburetor specialist with Vivitrol injections. He states he was also on gabapentin which seems to help. He is asking for refill for this and continues to see the carburetor specialist for his Vivitrol injection. He also [...] CYST REMOVAL face EGD (HISTORICAL) 07/23/2022 Dr. Estrella-[facility] SMALL INTESTINE SURGERY UPPER GASTROINTESTINAL ENDOSCOPY 09/27/2021 normal WISDOM TOOTH EXTRACTION Family History Problem Relation Name Age of Onset Depression Sister Maria De Jesus Hogan Other ([id number]) Sister Maria De Jesus Hogan agoraphobia Arthritis Sister Maria De Jesus Hogan Cancer Mother Maria De Jesus Hogan colon rectal cancer; dx after age 50 Other ([id number]) Mother Maria De Jesus Hogan alcoholism Alcohol abuse Mother Maria De Jesus Hogan Stroke Mother Maria De Jesus Hogan Other ([phone]) Father Maria De Jesus Hogan h/o rheumatic [...] Triston Rasheed MD documented in this encounter [facility] 01-28-2024 History of Present illness Narrative Outpatient Behavioral Health Initial Assessment Start Time: 1417 , End Time: [address] a [address] Appointed Guardian? no Does patient have a Durable Power of Facing Machine Operator? no Does the patient have an Advanced Directive? If Yes, copy received? no Screening Tool Score Comment (required for each screening tool) PHQ-9 1 (PHQ-2: 0) Not clinically significant KENY-7 3 Not clinically significant AUDIT-C 11 Likely indicates AUD DAST-10 0 Not clinically significant Life Events Checklist pos Pos in one domain PCL-5 4 Not clinically significant Language Preferred Language: Bel[place]ian Languages Spoken: russian Presenting Problem(s) Reason for visit as reported [...] were you homeless or living in a residential (including now)?: No Patient feels safe at [...] identify any impact on treatment) none reported Tenriism/Spiritual Orientation (note if patient identifies any belief in higher power, presybeterian belief, or not. Identify any spiritual/presybeterian beliefs about suicide) none reported Educational History [...] to answer How often do you attend evangelical or presybeterian services?: Never Do you belong to any clubs or organizations such as evangelical groups, unions, fraternal or athletic groups, or [...] If the patient has ever been to long term or in assisted, list where and how much time the [...] De Jesus Hypertension Insomnia family history includes [id number] in his father, mother, and sister; Alcohol [...] include date and reason) detox -[facility] Past Surgical History: Procedure Laterality Date COLONOSCOPY 06/10/2020 EGD/Dr Madison/Janis CYST REMOVAL face EGD (HISTORICAL) 07/23/2022 Dr. Estrella-[facility] SMALL INTESTINE SURGERY UPPER GASTROINTESTINAL ENDOSCOPY 09/27/2021 [...] Admission Number of detox admissions: 3 Location: [facility] Date: 01/13/24 Is there an immediate need [...] No Risk/Stable, Rationale: Pt completed detox [facility]23[facility]2014 1 Dimension 2 Severity Rating [...] PM PABLO Paul documented in this encounter [facility] 01-24-2024 Nurse Note Patient discharging home. Patient received vivitriol injection tolerated well. Patient given medication alert bracelet. Patient medications reviewed and appointments. Patient sent with written instructions and belongings. Patient picking up in [place]. [facility] 01-24-2024 Nurse Note Patient discharging home. Patient received vivitriol injection tolerated well. Patient given medication alert bracelet. Patient medications reviewed and appointments. Patient sent with written instructions and belongings. Patient picking up in lobby. Patient up, social with peers with appropriate behavior. Patient takes medication with ease. Patient encouraged to make needs known. 0915: Pt social in [employer]. Pt has attended groups. Pt A&O x4. [...] percent with no O2 Pt arrived from [facility] ED via cart with squad and security, [...] pt for safety. documented in this encounter [facility] 01-24-2024 Note [facility] 01-24-2024 Hospital course Narrative Addiction Medicine Detox [...] 367 ms QTC Interval 460 ms P [place] 50 degrees QRS [place] 55 degrees T Wave [place] 51 degrees [place] Interval 166 ms SARS-CoV-2 Antigen Collection Time: [...] given to pursue chemical dependency treatment at: [facility] Addiction [address] [phone] Go on 01/28/2024 at 1:30pm with Ammon for intake assessment for Intensive Outpatient Program and addiction medicine follow up. JUAN Delgado CNP [address] [place] [phone] Go on 02/12/2024 at 2 PM for [...] Note: Narrative portions of note written using [employer] dictation software. Efforts are made to dictate clearly and proofread but errors in dictation still may occur. Please reach out to author with any clarifying questions. Cosigned by Jonatan Mckeon MD at 01/24/2024 2:57 PM EDT Images from the original note were not included. ADDICTION MEDICINE 4E DETOX UNIT DISCHARGE SUMMARY Patient MRN Maria De Jesus Hogan [id number] 1965 Admit Date Discharge Date 01/20/2024 01/24/2024 [...] saw him in October on consults at [place]. States he wants to follow through with [...] 367 ms QTC Interval 460 ms P [place] 50 degrees QRS [place] 55 degrees T Wave [place] 51 degrees [place] Interval 166 ms SARS-CoV-2 Antigen Collection Time: [...] Your Medications These medications were sent to [facility] [address] [place] [address] [place] [address] [facility] [address] gabapentin 300 MG capsule Follow Up [facility] Addiction IOP [address] [place] [phone] Go on 01/28/2024 at 1:30pm with Ammon for intake assessment for Intensive Outpatient Program and addiction medicine follow up. JUAN Delgado CNP [address] [place] [phone] Go on 02/12/2024 at 2 PM for MAT/Vivitrol follow-up. Future Appointments Date Time Provider Department Center 01/28/2024 1:30 PM Ammon Abdul [facility] ADD IOP None 02/12/2024 2:00 PM JUAN [...] up with: Continue Vivitrol for MAT with 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 Robyn. Complete CD IOP. Have Pcp evaluate liver health. This discharge summary was completed with the aid of the fellow: Soraida Caldwell MD electronically signed Time Spent on Discharge Summary: > 30 mins documented in this encounter [facility] 01-24-2024 Note [facility] 01-24-2024 Note Formatting of this n ote might be different from the original. CLAIM TECHNICIAN saw patient to discuss aftercare plans and [...] home. Patient denied needing anything further from CLAIM TECHNICIAN at the time. CLAIM TECHNICIAN informed patient's nurse about conversation. [facility] 01-24-2024 Note Formatting of this n ote might be different from the original. CLAIM TECHNICIAN saw patient to discuss aftercare plans and [...] home. Patient denied needing anything further from CLAIM TECHNICIAN at the time. CLAIM TECHNICIAN informed patient's nurse about conversation. [facility] 01-24-2024 Miscellaneous Notes CLAIM TECHNICIAN saw patient to discuss aftercare plans and [...] home. Patient denied needing anything further from [facility] at the time. CLAIM TECHNICIAN informed patient's nurse about conversation. Problem: Potential [...] well as, support relaxation and humor. Name: Amria De Jesus Chika Hogan Date of : 1965 MR: [id number] Appearance: Good eye contact Affect: Appropriate Behavior: [...] as an adult. Patient denies any history [place] or status. Family Constellation/Childhood History: Patient reports that he is currently to his living in [facility]. Patient reports that he has 3 biological children and 4 stepchildren. Patient reports that his father in his 11 years old. Patient did not report his mother is still alive currently. Patient was born and raised in [place], [place] by his mother and father. 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 Patient denies SSI/SSD. Cultural/Spirituality/Leisure: Patient denies any cultural needs or concerns at the current time. Patient denies identify any presybeterian preference. It is unknown if patient is [...] any treatment recommendations and provided to him. HAM STRINGER will continue to work with patient in order to hopefully identify aftercare plans. Patient encouraged to engage in all activities that are offered to them while they are on the unit. Patient report needing additional current time. Patient encouraged to seek out CLAIM TECHNICIAN unit staff should they identify any additional [...] shift include comfort/safety documented in this encounter [facility] 01-24-2024 Plan of care note Problem: Potential [...] Abdul RN Outcome: Progressing 01/23/[id number] by Yasemin Abdlu RN Outcome: Progressing Problem: Drug Abuse/Detox Goal: [...] 01/23/[id number] by Yasemin Abdul RN Outcome: Progressing [facility] 01-24-2024 Nurse Note Patient up, social with peers with appropriate behavior. Patient takes medication with ease. Patient encouraged to make needs known. [facility] 01-23-2024 Nurse Note 0915: Pt social in [employer]. Pt has attended groups. Pt A&O x4. Pt denies SI/HI/AVH. Pt compliant with medications. Pt eating and taking fluids well. Pt up and gait steady. Pt allowed to wear his own shoes. Pt is pleasant and cooperative. Pt encouraged to notify staff with concerns. [facility] 01-23-2024 Plan of care note Problem: Potential [...] other facility with appropriate resources Outcome: Progressing [facility] 01-23-2024 History of Present illness Narrative Images [...] a [place], [place] Review of Systems Review of Systems [...] in IOP and vivitrol - would prefer [facility] IOP and MAT follow up Alcohol withdrawal [...] be monitored and followed by the diet is technician. CORDELL Hallman Images from the original [...] see his response. documented in this encounter [facility] 01-23-2024 Note Problem: Potential f or Substance Withdrawal Goal: Verbalizes signs/symptoms of withdrawal Outcome: Progressing Goal: Reports signs/symptoms of withdrawal Outcome: Progressing Goal: Free of withdrawal symptoms Outcome: Progressing [facility] 01-23-2024 Plan of care note Problem: Potential for Substance Withdrawal Goal: Verbalizes signs/symptoms of withdrawal Outcome: Progressing Goal: Reports signs/symptoms of withdrawal Outcome: Progressing Goal: Free of withdrawal symptoms Outcome: Progressing T [facility] 01-23-2024 Nurse Note Patient is up and steady, seen in group room socializing. Pt is cooperative and med compliant. Pt denies SI/HI/AVH. Pt encouraged to notify staff for any questions and concerns. T [facility] 01-22-2024 Note Formatting of this n ote might be different from the original. Patient interested in IOP and MAT. Patient scheduled for [facility] on 01/28/2024 at 1:30 PM. Patient scheduled for MAT with nurse practitioner Feli on 02/12/2024 at 2 PM. All information included in patient's discharge paperwork. T [facility] 01-22-2024 Note Formatting of this n ote might be different from the original. Patient interested in IOP and MAT. Patient scheduled for [facility] on 01/28/2024 at 1:30 PM. Patient scheduled for MAT with nurse practitioner Feli on 02/12/2024 at 2 PM. All information included in patient's discharge paperwork. [facility] [employer] 01-22-2024 Group counseling note Department: [facility] Group Topic: Recreation Therapy [...] Jesus Hogan Date of : 1965 MR: [id number] Appearance: Good eye contact Affect: Appropriate Behavior: [...] withdrawal with inpatient treatment without complication (HCC) [facility] [employer] 01-22-2024 Note Problem: Potential f or Substance Withdrawal Goal: Reports signs/symptoms of withdrawal Outcome: Progressing Problem: Drug Abuse/Detox Goal: Will have no detox symptoms and will verbalize plan for changing drug-related behavior Outcome: Progressing [facility] 01-22-2024 Nurse Note Patient sitting in day lyn upon RN approach. Patient compliant with taking AM medications. Patient denies suicidal ideation, self harm, homicidal ideation, visual hallucinations, auditory hallucinations and pain. Patient pleasant throughout exam. Patient educated on plan of care and to seek staff with concerns. Patient verbalizes understanding. [facility] 01-22-2024 Plan of care note Problem: Potential for Substance Withdrawal Goal: Reports signs/symptoms of withdrawal Outcome: Progressing Problem: Drug Abuse/Detox Goal: Will have no detox symptoms and will verbalize plan for changing drug-related behavior Outcome: Progressing [facility] 01-22-2024 Note Problem: Potential f or Substance Withdrawal Goal: Verbalizes signs/symptoms of withdrawal Outcome: Progressing Goal: Reports signs/symptoms of withdrawal Outcome: Progressing Goal: Free of withdrawal symptoms Outcome: Progressing [facility] 01-22-2024 Plan of care note Problem: Potential for Substance Withdrawal Goal: Verbalizes signs/symptoms of withdrawal Outcome: Progressing Goal: Reports signs/symptoms of withdrawal Outcome: Progressing Goal: Free of withdrawal symptoms Outcome: Progressing [facility] 01-22-2024 Note Problem: Potential f or Substance Withdrawal Goal: Verbalizes signs/symptoms of withdrawal Outcome: Progressing Goal: Reports signs/symptoms of withdrawal Outcome: Progressing Goal: Free of withdrawal symptoms Outcome: Progressing [facility] 01-22-2024 Plan of care note Problem: Potential for Substance Withdrawal Goal: Verbalizes signs/symptoms of withdrawal Outcome: Progressing Goal: Reports signs/symptoms of withdrawal Outcome: Progressing Goal: Free of withdrawal symptoms Outcome: Progressing [facility] 01-21-2024 Nurse Note Patient is up and steady, seen in group room. Pt is cooperative and med compliant. Pt is encouraged to notify staff for any questions and concerns. [facility] 01-21-2024 Nurse Note Patient received PRN albuterol inhaler as per orders at 1112 for . [facility] 01-21-2024 Hospital Discharge instructions JEREMY Solis - [...] National Suicide Prevention Hotline if needed at: 1-161-611-RULK (1895) Please call the following number should you have questions regarding your discharge or aftercare appointments: [facility] documented in this encounter [facility] 01-21-2024 Note Formatting of this n ote [...] as an adult. Patient denies any history [place] or status. Family Constellation/Childhood History: Patient reports that he is currently to his living in [facility]. Patient reports that he has 3 biological children and 4 stepchildren. Patient reports that his father in his 11 years old. Patient did not report his mother is still alive currently. Patient was born and raised in [place], [place] by his mother and father. 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 Patient denies SSI/SSD. Cultural/Spirituality/Leisure: Patient denies any cultural needs or concerns at the current time. Patient denies identify any presybeterian preference. It is unknown if patient is [...] any treatment recommendations and provided to him. HAM STRINGER will continue to work with patient in order to hopefully identify aftercare plans. Patient encouraged to engage in all activities that are offered to them while they are on the unit. Patient report needing additional current time. Patient encouraged to seek out [facility] unit staff should they identify any additional [...] contact the dictating provider for clarification. T [facility] 01-21-2024 Note Formatting of this n ote [...] as an adult. Patient denies any history [place] or status. Family Constellation/Childhood History: Patient reports that he is currently to his living in [facility]. Patient reports that he has 3 biological children and 4 stepchildren. Patient reports that his father in his 11 years old. Patient did not report his mother is still alive currently. Patient was born and raised in [place], [place] by his mother and father. 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 Patient denies SSI/SSD. Cultural/Spirituality/Leisure: Patient denies any cultural needs or concerns at the current time. Patient denies identify any presybeterian preference. It is unknown if patient is [...] current time. Patient encouraged to seek out [facility] unit staff should they identify any additional [...] to contact the dictating provider for clarification. [facility] 01-21-2024 Nurse Note Patient received PRN respiratory TX from RT at 0915 with good results. 02 93 percent with no O2 [facility] 01-21-2024 Plan of care note The patient is Moderately Stable - Low risk of patient condition declining or worsening The patient's goals for the shift include rest The clinical goals for the shift include comfort/safety [facility] 01-21-2024 History and physical note Images from [...] alcohol WD. On approach, Maria De Jesus Hogna is seen lying in hospital room stating I don't really want to talk, I'd like to sleep. Engages limitedly in brief conversation. States he is drinking 12 24ox beers (8%) daily, denies any other drug use. Did reports infrequent cannabis use to ED. Limited sober time since ADM last saw him in October on consults at [facility]. States he wants to follow through with [facility] this time. On admission, a urine drug [...] but Pt cannot recall where. Detoxifications: x1 [facility] [employer] (per Pt). 12 Step Meetings: Has attended [...] CYST REMOVAL face EGD (HISTORICAL) 07/23/2022 Dr. Estrella-[facility] SMALL INTESTINE SURGERY UPPER GASTROINTESTINAL ENDOSCOPY 09/27/2021 normal WISDOM TOOTH EXTRACTION Family History Family History Problem Relation Name Age of Onset Depression Sister Maria De Jesus Hogan Other ([id number]) Sister Maria De Jesus Hogan agoraphobia Arthritis Sister Maria De Jesus Hogan Cancer Mother Maria De Jesus Hogan colon rectal cancer; dx after age 50 Other ([id number]) Mother Maria De Jesus Hogan alcoholism Alcohol abuse Mother Maria De Jesus Hogan Stroke Mother Maria De Jesus Hogan Other ([id number]) Father Maria De Jesus Hogan h/o rheumatic fever, cardiac arrest due to bee sting Hypertension Father Maria De Jesus Hogan [employer] Tobacco Use: High Risk (11/28/2023) Patient History [...] min Stress: No Stress Concern Present (01/20/2024) [place] [employer] - Occupational Stress Questionnaire Feeling of Stress : Not at all Social Connections: Socially Isolated (01/20/2024) Social Connection and Isolation Panel [NHANES] Frequency of Communication with Friends and Family: Never Frequency of Social Gatherings with Friends and Family: Never Attends Tenriism Services: Never Active Member of Clubs or [...] Utilities: Not At Risk (01/20/2024) [facility] Utilities Threatened with loss of utilities: [...] 367 ms QTC Interval 460 ms P [place] 50 degrees QRS [place] 55 degrees T Wave [place] 51 degrees [place] Interval 166 ms SARS-CoV-2 Antigen Collection Time: [...] with the fellow s findings and plan. [facility] 01-21-2024 Note [facility] 01-21-2024 History and physical note Images [...] saw him in October on consults at [facility]. States he wants to follow through with [facility] this time. On admission, a urine drug [...] but Pt cannot recall where. Detoxifications: x1 [facility] (per Pt). 12 Step Meetings: Has attended [...] CYST REMOVAL face EGD (HISTORICAL) 07/23/2022 Dr. Estrella-[facility] SMALL INTESTINE SURGERY UPPER GASTROINTESTINAL ENDOSCOPY 09/27/2021 normal WISDOM TOOTH EXTRACTION Family History Family History Problem Relation Name Age of Onset Depression Sister Maria De Jesus Hogan Other ([id number]) Sister Maria De Jesus Hogan agoraphobia Arthritis Sister Maria De Jesus Hogan Cancer Mother Maria De Jesus Hogan colon rectal cancer; dx after age 50 Other ([id number]) Mother Maria De Jesus Hogan alcoholism Alcohol abuse Mother Maria De Jesus Hogan Stroke Mother Maria De Jesus Hogan Other ([id number]) Father Maria De Jesus Hogan h/o rheumatic fever, cardiac arrest due to bee sting Hypertension Father Maria De Jesus Hogan [employer] Tobacco Use: High Risk (11/28/2023) Patient History [...] min Stress: No Stress Concern Present (01/20/2024) [place] [employer] - Occupational Stress Questionnaire Feeling of Stress : Not at all Social Connections: Socially Isolated (01/20/2024) Social Connection and Isolation Panel [NHANES] Frequency of Communication with Friends and Family: Never Frequency of Social Gatherings with Friends and Family: Never Attends Tenriism Services: Never Active Member of Clubs or [...] Utilities: Not At Risk (01/20/2024) [facility] Utilities Threatened with loss of utilities: [...] 367 ms QTC Interval 460 ms P [place] 50 degrees QRS [place] 55 degrees T Wave [place] 51 degrees TX Interval 166 ms SARS-CoV-2 Antigen Collection Time: [...] findings and plan. documented in this encounter [facility] 01-20-2024 Nurse Note Pt arrived from [facility] ED via cart with squad and security, [...] in condition. Will monitor pt for safety. [facility] 01-20-2024 Emergency department Note Called in report to JAY Acevedo at [facility] 4. Jacqueline Richardson RN 01/20/242202 [facility] 01-20-2024 Emergency department Note Called in report to JAY Acevedo at [facility] 4W. Jacqueline Richardson RN 01/20/242202 This [...] emergency department visit, please see their documentation. [facility] ED EMERGENCY DEPARTMENT ENCOUNTER Pt Name: Maria [...] for detox from alcohol. 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 Says was in detox [...] withdrawal, with unspecified complication (HCC) 10/02/2019 Alcoholism ([facility]/HCC) (HCC) Anxiety Arthritis Maria De Jesus Cerebral artery occlusion with cerebral infarction (HCC) Cerebrovascular disease Depression GERD (gastroesophageal reflux disease) Maria De Jesus Hypertension Insomnia SURGICAL HISTORY Past Surgical History: Procedure Laterality Date COLONOSCOPY 06/10/2020 EGD/Dr Madison/AMANDA CYST REMOVAL face EGD (HISTORICAL) 07/23/2022 Dr. Estrella-[facility] SMALL INTESTINE SURGERY UPPER GASTROINTESTINAL ENDOSCOPY 09/27/2021 [...] Depression Sister Maria De Jesus Hogan Other ([id number]) Sister Maria De Jesus Hogan agoraphobia Arthritis Sister Maria De Jesus Hogan Cancer Mother Maria De Jesus Hogan colon rectal cancer; dx after age 50 Other ([id number]) Mother Maria De Jesus Hogan alcoholism Alcohol abuse Mother Maria De Jesus Hogan Stroke Mother Maria De Jesus Hogan Other ([phone]) Father Maria De Jesus Hogan h/o rheumatic [...] 0 min Stress: Stress Concern Present (07/28/2023) [place] [employer] - Occupational Stress Questionnaire Feeling of Stress : To some extent Social Connections: Moderately Isolated (07/28/2023) Social Connection and Isolation Panel [NHANES] Frequency of Communication with Friends and Family: Twice a week Frequency of Social Gatherings with Friends and Family: Once a week Attends Tenriism Services: Never Active Member of Clubs or [...] Housing in the Last Year: No SCREENINGS [place] Com[place] Scale Best Eye Response: Spontaneous Best [...] Triston Abraham MD PAT[facility] Emergency Medicine Physician [facility] Triston Abraham MD 01/20/242048 EMERGENCY DEPARTMENT [...] CYST REMOVAL face EGD (HISTORICAL) 07/23/2022 Dr. Estrella-[facility] SMALL INTESTINE SURGERY UPPER GASTROINTESTINAL ENDOSCOPY 09/27/2021 [...] Depression Sister Maria De Jesus Hogan Other ([id number]) Sister Maria De Jesus Hogan agoraphobia Arthritis Sister Maria De Jesus Hogan Cancer Mother Maria De Jesus Hogan colon rectal cancer; dx after age 50 Other ([id number]) Mother Maria De Jesus Hogan alcoholism Alcohol abuse Mother Maria De Jesus Hogan Stroke Mother Maria De Jesus Hogan Other ([phone]) Father Maria De Jesus Hogan h/o rheumatic [...] 0 min Stress: Stress Concern Present (07/28/2023) [place] [employer] - Occupational Stress Questionnaire Feeling of Stress : To some extent Social Connections: Moderately Isolated (07/28/2023) Social Connection and Isolation Panel [NHANES] Frequency of Communication with Friends and Family: Twice a week Frequency of Social Gatherings with Friends and Family: Once a week Attends Tenriism Services: Never Active Member of Clubs or [...] Housing in the Last Year: No SCREENINGS [place] Com[place] Scale Best Eye Response: Spontaneous Best Verbal Response: Oriented Best Motor Response: Follows commands [place] Com[place] Scale Score: 15 PHYSICAL EXAM ED [...] anxiety, vomiting, palpitations documented in this encounter [facility] 01-20-2024 Note NOTE: This result is for medical treatment only. Analysis performed using non-forensic procedures. [facility] 01-20-2024 Emergency department Triage note Pt presents seeking alcohol detox. Last drink was right before leaving house. Drinks about 6-8 beers/day. Has been through detox in past. Has never had withdrawal seizures. Currently having anxiety, vomiting, palpitations [facility] 01-20-2024 Physician Emergency department Note This will [...] emergency department visit, please see their documentation. [facility] ED EMERGENCY DEPARTMENT ENCOUNTER Pt Name: Maria [...] for detox from alcohol. 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 Says was in detox [...] CYST REMOVAL face EGD (HISTORICAL) 07/23/2022 Dr. Estrella-[facility] SMALL INTESTINE SURGERY UPPER GASTROINTESTINAL ENDOSCOPY 09/27/2021 [...] Depression Sister Maria De Jesus Hogan Other ([phone]) Sister Maria De Jesus Hogan agoraphobia Arthritis Sister Maria De Jesus Hogan Cancer Mother Maria De Jesus Hogan colon rectal cancer; dx after age 50 Other ([id number]) Mother Maria De Jesus Hogan alcoholism Alcohol abuse Mother Maria De Jesus Hogan Stroke Mother Maria De Jesus Hogan Other ([id number]) Father Maria De Jesus Hogan h/o rheumatic [...] 0 min Stress: Stress Concern Present (07/28/2023) [place] [employer] - Occupational Stress Questionnaire Feeling of Stress : To some extent Social Connections: Moderately Isolated (07/28/2023) Social Connection and Isolation Panel [NHANES] Frequency of Communication with Friends and Family: Twice a week Frequency of Social Gatherings with Friends and Family: Once a week Attends Tenriism Services: Never Active Member of Clubs or [...] Housing in the Last Year: No SCREENINGS [place] Com[place] Scale Best Eye Response: Spontaneous Best [...] Triston Abraham MD PAT[place] Emergency Medicine Physician [facility] Triston Abraham MD 01/20/242048 That{img} Phone: 01-20-2024 Physician Emergency department Note EMERGENCY [...] CYST REMOVAL face EGD (HISTORICAL) 07/23/2022 Dr. Estrella-[facility] SMALL INTESTINE SURGERY UPPER GASTROINTESTINAL ENDOSCOPY 09/27/2021 [...] Depression Sister Maria De Jesus Hogan Other ([id number]) Sister Maria De Jesus Hogan agoraphobia Arthritis Sister Maria De Jesus Hogan Cancer Mother Maria De Jesus Hogan colon rectal cancer; dx after age 50 Other ([id number]) Mother Maria De Jesus Hogan alcoholism Alcohol abuse Mother Maria De Jesus Hogan Stroke Mother Maria De Jesus Hogan Other ([id number]) Father Maria De Jesus Hogan h/o rheumatic [...] 0 min Stress: Stress Concern Present (07/28/2023) [place] [employer] - Occupational Stress Questionnaire Feeling of Stress : To some extent Social Connections: Moderately Isolated (07/28/2023) Social Connection and Isolation Panel [NHANES] Frequency of Communication with Friends and Family: Twice a week Frequency of Social Gatherings with Friends and Family: Once a week Attends Tenriism Services: Never Active Member of Clubs or [...] Housing in the Last Year: No SCREENINGS [place] Com[place] Scale Best Eye Response: Spontaneous Best Verbal Response: Oriented Best Motor Response: Follows commands [place] Scale Score: 15 PHYSICAL EXAM ED [...] Abraham MD at 01/20/2024 9:00 PM EDT [facility] 12-11-2023 Miscellaneous Notes Pt did not show for IOP assessment on this date. documented in this encounter [facility] 12-11-2023 Note Formatting of this n ote might be different from the original. Pt did not show for IOP assessment on this date. T [facility] 12-11-2023 Note Formatting of this n ote might be different from the original. Pt did not show for IOP assessment on this date. T [facility] 12-03-2023 Telephone encounter Note Recent Visits Date Type Provider Dept 12/26/22 Office Visit Lynda Rasheed MD [facility] Showing recent visits within past 365 days and meeting all other requirements Future Appointments Date Type Provider Dept 12/17/23 Appointment Lynda Rasheed MD [facility] Showing future appointments within next 90 [...] medications from any other provider? No None [facility] 12-03-2023 Miscellaneous Notes Recent Visits Date Type Provider Dept 12/26/22 Office Visit Lynda Rasheed MD [facility] Showing recent visits within past 365 days and meeting all other requirements Future Appointments Date Type Provider Dept 12/17/23 Appointment Lynda Rasheed MD [facility] Showing future appointments within next 90 [...] provider? No None documented in this encounter [facility] 11-30-2023 Hospital course Narrative Discharge Summary Maria De Jesus oHgan : 1965 ADMIT DATE: 11/27/2023 DISCHARGE DATE: [...] period of sobriety while he was in long term although appears that his last time in detox was earlier this year in June. He came in with serum ethanol level of 0.297 on 11/27. He was admitted for detox and addiction med was consulted. The following is a summary of his diagnosis management during his stay here at [facility]: Acute, acute on chronic, unstable/uncontrolled chronic problems/diagnoses: [...] NAME: Follow up with Lynda Rasheed MD [address] [place] [address] [address] [facility] [id number] INSTRUCTIONS TO MA/SW: Please call patient on [...] 11/30/2023, 10:50 AM documented in this encounter [facility] 11-30-2023 Note [facility] 11-30-2023 Nurse Note At 0900, patient wanted to talk to the physician about being discharged today. Physician spoke with patient. Physician notified this nurse that patient wants to leave AMA and would not be discharged today. At 1000, this nurse provided patient with AMA form. AMA form was signed by patient, and this nurse removed patient IV. [facility] 11-30-2023 Nurse Note At 0900, patient wanted [...] of tobacco. Multiple admissions for detox at [facility]. Is actually not allowed back on the detox unit at [facility] because of some incident that occurred [...] with his . 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 Has a valid ID. is able to transport patient because he does not currently drive. [place] [employer] for health insurance coverage. Plan is to admit patient medically for detox at [facility]. Would also recommend that patient follow up with IOP on discharge. Patient seemed interested in Vivitrol. Patient provided with a list of treatment resources in addition to First Step, IOP, Vivitrol, and [facility] Peer Cylinder Worker Service pamphlets. documented in this encounter [facility] 11-30-2023 Plan of care note The patient [...] other facility with appropriate resources Outcome: Progressing [facility] 11-30-2023 Miscellaneous Notes The patient is Moderately [...] Limits Permission given to speak with patient surgical sales representative/caregiver as indicated: Confirmation of Payer with patient/family: Yes Payer Name: Annemarie [facility] [place]: No Confirmation of Primary Care Physician: Confirmed [...] routinely. Has insurance and prescription coverage, uses [facility] in [place]. Patient denies any financial difficulties. Plan to DC home with ETOH treatment when medically stable. Patient verbalizes understanding and is in agreement with POC. Nancy Munroe RN Outpatient Behavioral Health Services Case Management/Care Coordination Note Date of Contact: 11/29/23 Start Time: 12:10 PM End Time: 12:20 PM Duration: 10 mins Type of Contact: [id number]-[id number] Patient's Identified Case Management/Care Coordination Need(s) addressed [...] experiences with IOP through Addiction Medicine at [facility]. Note Any Anticipated Barriers: Pt stated he [...] he had recently gone through Detox at [facility] and other IOP services and it had helped in the past. documented in this encounter [facility] 11-30-2023 Plan of care note The patient is Moderately Stable - Low risk of patient condition declining or worsening The patient's goals for the shift include Safety The clinical goals for the shift include Safety [facility] 11-29-2023 Plan of care note The patient is Moderately Stable - Low risk of patient condition declining or worsening The patient's goals for the shift include Safety and to feel better. The clinical goals for the shift include safety [facility] 11-29-2023 Note Formatting of this n ote might be different from the original. S/W, IOP IOP counselor did come up to see patient to discuss treatment program. Patient was scheduled for an appointment for 12/10 at 10A. T [facility] 11-29-2023 Note Formatting of this n ote might be different from the original. S/W, IOP IOP counselor did come up to see patient to discuss treatment program. Patient was scheduled for an appointment for 12/10 at 10A. [facility] 11-29-2023 Note Formatting of this n ote might be different from the original. Care Managment Initial Assessment Date: 11/29/2023 Patient Name: Maria De Jesus Hogan : 1965 Patient Information Source of Information: Patient Cognition/Language: WFL - Within Functional Limits Permission given to speak with patient surgical sales representative/caregiver as indicated: Confirmation of Payer with patient/family: Yes Payer Name: Annemarie [facility] [place]: No Confirmation of Primary Care Physician: Confirmed [...] Daily Living Prescription Coverage: Yes Pharmacy Used: [facility] in [place] Medication Management: Independent Transportation/Shopping: Independent Transportation Mode: [...] routinely. Has insurance and prescription coverage, uses [facility] in [place]. Patient denies any financial difficulties. Plan to DC home with ETOH treatment when medically stable. Patient verbalizes understanding and is in agreement with POC. Nancy Munroe RN [facility] 11-29-2023 Note Formatting of this n ote might be different from the original. Care Managment Initial Assessment Date: 11/29/2023 Patient Name: Maria De Jesus Hogan : 1965 Patient Information Source of Information: Patient Cognition/Language: WFL - Within Functional Limits Permission given to speak with patient surgical sales representative/caregiver as indicated: Confirmation of Payer with [...] routinely. Has insurance and prescription coverage, uses [facility] in [place]. Patient denies any financial difficulties. Plan to DC home with ETOH treatment when medically stable. Patient verbalizes understanding and is in agreement with POC. Nancy Munroe RN [facility] 11-29-2023 Note Formatting of this n ote might be different from the original. Outpatient Behavioral Health Services Case Management/Care Coordination Note Date of Contact: 11/29/23 Start Time: 12:10 PM End Time: 12:20 PM Duration: 10 mins Type of Contact: [id number]-[id number] Patient's Identified Case Management/Care Coordination Need(s) addressed [...] experiences with IOP through Addiction Medicine at [facility]. Note Any Anticipated Barriers: Pt stated he [...] he had recently gone through Detox at [facility] and other IOP services and it had helped in the past. [facility] 11-29-2023 Note Formatting of this n ote might be different from the original. Outpatient Behavioral Health Services Case Management/Care Coordination Note Date of Contact: 11/29/23 Start Time: 12:10 PM End Time: 12:20 PM Duration: 10 mins Type of Contact: [id number]-[id number]-Jyxg Patient's Identified Case Management/Care Coordination Need(s) addressed [...] experiences with IOP through Addiction Medicine at [facility]. Note Any Anticipated Barriers: Pt stated he [...] he had recently gone through Detox at [facility] and other IOP services and it had helped in the past. [facility] 11-29-2023 History of Present illness Narrative Hospitalist Progress Note 11/29/2023 [id number]: Please page me ([phone]) for patient care issues. [phone]: Please page [facility] Hospitalist for any issues. Subjective: Admit Date: 11/27/2023 PCP: Lynda Rasheed MD Room#: S0-537/E3-878 A Interval History: Patient states he is feeling pretty good today. Denies feeling anxious or jittery right now. Denies chest pain or sob. No abdominal pain, nausea, vomiting. No fevers or chills. He denies any new complaints Adult diet Regular @[id number]@ 24HR INTAKE/OUTPUT: No intake or output data [...] recommend to continue as needed Ativan per CISD protocol. Also, Addiction med states patient is open to IOP after he is chemically detoxed. They will arrange for counselor to speak with him. I spoke with . He states he is plan for possible discharge tomorrow. -Continue thiamine and folate. Extended Emergency Contact Information Primary Emergency Contact: Samira,April Mobile Relation: Spouse Saurabh Moran MD Division of Hospitalist Medicine Inpatient Medical Services/[facility] PAGER: Epic chat Nutrition rescreen completed. Chart reviewed. Patient to be monitored and followed by the diet is technician. Images from the original note were [...] symptoms. Medical stabilization as per primary team. Lead Painter to coordinate aftercare. Patient to follow up with me in office on December 06 2023 at 10:00 AM for Vivitrol injection - [facility]. Will follow. I reviewed the patient's medical [...] day of visit. documented in this encounter [facility] 11-28-2023 Emergency department Note Unit made aware of impending patient transport to the unit via broadcast. Judy Higgins RN 11/28/23 1650 [facility] 11-28-2023 Emergency department Note Unit made aware [...] treatment: 12-Step: Heroin Anonymous : Dayne Gray: [phone], Luis Fernando Cloud: [phone] Narcotics Anonymous: 888-GET_HOPE (864-335-6622) [place] Arcade.Aumentality.cl Alcohol Anonymous: Bomberbotaa.org Cocaine Anonymous: https://www.Audit Verify.org/meetings/ak eranmarino, NarAnon: 846.935.1902: 12-step program for families & friends of people with addiction. CRISIS: Homeless Hotline: 144.905.1575 Domestic Violence help line anytime: 433.941.4982 Crisis Hotline: 22/10- 573.929.4840 ADM Addiction Helpline: 728.204.1797 (available 8:30 AM to 4:00 PM ) 2-1-1 2-1-1 helps people across [facility] find local resources when they don't know where to turn for help. We are available 24 hours a day, 7 days a week. For help, simply dial 05-02- to speak to one of our trained professionals. METHADONE TREATMENT: [facility], [place] [phone] [facility] [place], [place] [phone] [facility], [place] [phone] [place], [place] [phone] [facility]- [phone] ext. [phone] [facility])- [phone] DETOX TREATMENT: [facility] Crisis Center: anytime @ [phone] for alcohol & drug addiction help. [facility], [place] [phone] [facility] coordination: [phone] (Medicare not accepted) [facility] [place]: [phone] ([place] Medicaid not accepted) [facility], [place]: [phone] ([place] Medicaid not accepted) [facility] [place]: [phone] (Will Coordinate Transportation) [facility] [place]: [phone] [facility] [place]: [phone], [facility] [place]: [phone] [place], [place] [phone] [facility] [place]: [phone] (Will Coordinate Transportation) [place], [place] [phone] ext. [phone] [place], [place] (pt. must be medically cleared prior to admission in ED) [place], [place] [phone] [facility] [place]: [phone] ([place] Medicaid not accepted) [facility] [place], [place] [phone] (Will Coordinate Transportation) [phone] OUTPATIENT TREATMENT: [facility] Addiction Medicine @ Kane Cramer [place], [place] [phone] [facility] Recovery House: Inpatient or Outpatient- [phone] 1st Step MAT Program @ [facility] ED: [phone] 1st Step MAT Program @ [facility] ED: [phone] 1st Step MAT Program @ [facility] ED: [phone], INTENSIVE OUTPATIENT PROGRAMS @ [facility] [place] [phone] [place], [place] [phone] [facility] [place], [place] [phone] [facility] [place], [place] [phone] [facility]: [phone] [facility], [place], [place] [phone] [facility]: [phone], [place]: [phone] [facility], [place], [place]: [phone] [facility], [place]: [phone], [place]: [phone] Axloan Chacon, [place]: [phone]; [place]: [phone] [place] [facility] (Emphasis on minorities): https://[email or web address].[email or web address], [facility], [place], [place] [phone] [facility] SERVICES: LCADA Jarred Arreaga & [place]: [phone] [place] Mervin Schultz [place], [place] [phone] [facility] [place], [place] [phone] [facility] [phone] [facility] SERVICES: One Eighty (180): [place], [place] [phone] [place] Bal[place] SHEETS & Jayy: [phone] RESIDENTIAL TREATMENT FACILITIES: [facility], [place], [place] [phone] (admission coordinated by ADM Gurvinder Landers ext [phone]) [facility], [place], [place]: [phone]; Men's services inpt. & women services - Outpt. [place], [place] [phone] [facility], [place] [phone] [facility], [place] [phone] [facility], [place], [place] [phone] [facility] [place], [place] [phone] [facility] [place], [place] [phone] [facility] [place], [place] [phone] [facility], [place], [place]-[facility], [facility] [phone] [employer] - Peer Cylinder Worker service: [phone] [facility]: [phone] ext. [phone] Medicaid Health Coverage: YnvisibleDuc S: [phone] Larry Avila RN 11/27/23 1925 Detox rules read and signed by patient. Witnessed by this RN. Larry Avila RN 11/27/23 7703 EMERGENCY DEPARTMENT ENCOUNTER Pt Name: MariaD e Jesus Hogan Birthdate 1965 Date of evaluation: [...] period of sobriety while he was in long term although appears that his last time in [...] CYST REMOVAL face EGD (HISTORICAL) 07/23/2022 Dr. Estrella-[facility] SMALL INTESTINE SURGERY UPPER GASTROINTESTINAL ENDOSCOPY 09/27/2021 [...] Depression Sister Maria De Jesus Hogan Other ([id number]) Sister Maria De Jesus Hogan agoraphobia Arthritis Sister Maria De Jesus Hogan Cancer Mother Maria De Jesus Hogan colon rectal cancer; dx after age 50 Other ([id number]) Mother Maria De Jesus Hogan alcoholism Alcohol abuse Mother Maria De Jesus Hogan Stroke Mother Maria De Jesus Hogan Other ([id number]) Father Maria De Jesus Hogan h/o rheumatic [...] 0 min Stress: Stress Concern Present (07/28/2023) [place] [employer]ational Health - Occupational Stress Questionnaire Feeling of Stress : To some extent Social Connections: Moderately Isolated (07/28/2023) Social Connection and Isolation Panel [NHANES] Frequency of Communication with Friends and Family: Twice a week Frequency of Social Gatherings with Friends and Family: Once a week Attends Tenriism Services: Never Active Member of Clubs or [...] Housing in the Last Year: No SCREENINGS [place] Coma Scale Best Eye Response: Spontaneous Best [...] Procedure Abnormality Status --------- ------ Basic metabolic panel[[id number]] Abnormal Final result Please view results for [...] TIME PATIENT REFERRED TO: Lynda Rasheed MD [address] [place] [address] [address] [facility] [address] DISCHARGE MEDICATIONS: Discharge Medication List as of [...] MD 11/30/23 1518 Emergency Department Encounter Location: [facility] ED Patient: Maria De Jesus Hogan : 1965 Date of evaluation: 11/27/2023 ED Provider: Val Fragoso MD 0830 Maria De Jesus Hogan was checked out [...] have a period of sobriety while in long term. He states earlier in the ER he [...] MD 11/28/23 0515 documented in this encounter [facility] 11-28-2023 Emergency department Note O2 turned up to 4L NC due to low saturation in 70's while sleeping Gris Dillon RN 11/28/23 1500 [facility] 11-28-2023 Emergency department Note 2L NC applied due to O2 sat in 80's while sleeping Gris Dillon RN 11/28/23 1425 [facility] 11-28-2023 Consult note Associated Order (s): IP [...] but Pt cannot recall where. Detoxifications: x1 [facility] Autopilot (per Pt). 12 Step Meetings: Has attended [...] CYST REMOVAL face EGD (HISTORICAL) 07/23/2022 Dr. Estrella-[facility] SMALL INTESTINE SURGERY UPPER GASTROINTESTINAL ENDOSCOPY 09/27/2021 normal WISDOM TOOTH EXTRACTION Family History Family History Problem Relation Name Age of Onset Depression Sister Maria De Jesus Hogan Other ([id number]) Sister Maria De Jesus Hogan agoraphobia Arthritis Sister Maria De Jesus Hogan Cancer Mother Maria De Jesus Hogan colon rectal cancer; dx after age 50 Other ([id number]) Mother Maria De Jesus Hogan alcoholism Alcohol abuse Mother Maria De Jesus Hogan Stroke Mother Maria De Jesus Hogan Other ([id number]) Father Maria De Jesus Hogan h/o rheumatic [...] 0 min Stress: Stress Concern Present (07/28/2023) [place] of [employer]ational Health - Occupational Stress Questionnaire Feeling of Stress : To some extent Social Connections: Moderately Isolated (07/28/2023) Social Connection and Isolation Panel [NHANES] Frequency of Communication with Friends and Family: Twice a week Frequency of Social Gatherings with Friends and Family: Once a week Attends Tenriism Services: Never Active Member of Clubs or [...] Utilities: Not At Risk (07/28/2023) [facility] Utilities Threatened with loss of utilities: [...] 338 ms QTC Interval 463 ms P [place] 77 degrees QRS [place] 85 degrees T Wave [place] 56 degrees [place] Interval 158 ms CBC auto differential Collection [...] symptoms. Medical stabilization. Labs/tests/tasks to review: None. Lead Painter to coordinate care with aftercare program. Will [...] clinical information on the day of visit. [facility] 11-28-2023 Consult note Associated Order (s): IP [...] but Pt cannot recall where. Detoxifications: x1 Rapid Vocabulary Autopilot (per Pt). 12 Step Meetings: Has attended [...] CYST REMOVAL face EGD (HISTORICAL) 07/23/2022 Dr. sEtrella-[facility] SMALL INTESTINE SURGERY UPPER GASTROINTESTINAL ENDOSCOPY 09/27/2021 normal WISDOM TOOTH EXTRACTION Family History Family History Problem Relation Name Age of Onset Depression Sister Maria De Jesus Hogan Other ([id number]) Sister Maria De Jesus Hogan agoraphobia Arthritis Sister Maria De Jesus Hogan Cancer Mother Maria De Jesus Hogan colon rectal cancer; dx after age 50 Other ([id number]) Mother Maria De Jesus Hogan alcoholism Alcohol abuse Mother Maria De Jesus Hogan Stroke Mother Maria De Jesus Hogan Other (89738) Father Maria De Jesus Hogan h/o rheumatic [...] 0 min Stress: Stress Concern Present (07/28/2023) [place] [employer] - Occupational Stress Questionnaire Feeling of Stress : To some extent Social Connections: Moderately Isolated (07/28/2023) Social Connection and Isolation Panel [NHANES] Frequency of Communication with Friends and Family: Twice a week Frequency of Social Gatherings with Friends and Family: Once a week Attends Tenriism Services: Never Active Member of Clubs or [...] Utilities: Not At Risk (07/28/2023) [facility] Utilities Threatened with loss of utilities: [...] Electronically Signed On 11-28-2023 04:56:24 EDT by IMScouting Recent Results (from the past 48 hour(s)) [...] 338 ms QTC Interval 463 ms P [place] 77 degrees QRS [place] 85 degrees T Wave [place] 56 degrees [place] Interval 158 ms CBC auto differential Collection [...] symptoms. Medical stabilization. Labs/tests/tasks to review: None. Lead Painter to coordinate care with aftercare program. Will [...] day of visit. documented in this encounter [facility] 11-28-2023 History and physical note History and Physical [facility] Chika BadilloO'Brien : 1965 AGE 58 y.o. YEARS Note [...] CYST REMOVAL face EGD (HISTORICAL) 07/23/2022 Dr. Estrella-[facility] SMALL INTESTINE SURGERY UPPER GASTROINTESTINAL ENDOSCOPY 09/27/2021 [...] Depression Sister Maria De Jesus Hogan Other ([id number]) Sister Maria De Jesus Hogan agoraphobia Arthritis Sister Maria De Jesus Hogan Cancer Mother Maria De Jesus Hogan colon rectal cancer; dx after age 50 Other ([id number]) Mother Maria De Jesus Hogan alcoholism Alcohol abuse Mother Maria De Jesus Hogan Stroke Mother Maria De Jesus Hogan Other (80205) Father Maria De Jesus Hogan h/o rheumatic [...] mechanical contraindicated 11/28/2023 Maria De Jesus Hogan [id number] Any scheduled follow up appointments Future Appointments Date Time Provider Department Center 12/17/2023 3:00 PM Lynda Rasheed MD [facility] Extended Emergency Contact Information Primary Emergency Contact: Mobile Relation: Spouse Portions of this note may be electronically transcribed. Please forward a copy of this H&P to the primary care physician. [employer] Work Phone: 11-28-2023 Note [employer] [facility] 11-28-2023 History and physical note History and Physical [facility] Maria De Jesus Hogan : 1965 AGE [...] CYST REMOVAL face EGD (HISTORICAL) 07/23/2022 Dr. Estrella-[facility] SMALL INTESTINE SURGERY UPPER GASTROINTESTINAL ENDOSCOPY 09/27/2021 [...] Depression Sister Maria De Jesus Hogan Other ([id number]) Sister Maria De Jesus Hogan agoraphobia Arthritis Sister Maria De Jesus Hogan Cancer Mother Maria De Jesus Hogan colon rectal cancer; dx after age 50 Other ([id number]) Mother Maria De Jesus Hogan alcoholism Alcohol abuse Mother Maria De Jesus Hogan Stroke Mother Maria De Jesus Hogan Other ([id number]) Father Maria De Jesus Hogan h/o rheumatic fever, cardiac arrest due to bee sting Hypertension Father Mraia De Jesus Hogan Physical Exam Temp (24hrs), [...] mechanical contraindicated 11/28/2023 Maria De Jesus Hogan [id number] Any scheduled follow up appointments Future Appointments Date Time Provider Department Center 12/17/2023 3:00 PM Lynda Rasheed MD [facility] Extended Emergency Contact Information Primary Emergency Contact: Samira Mobile Relation: Spouse Portions of this note may be electronically transcribed. Please forward a copy of this H&P to the primary care physician. documented in this encounter [facility] 11-28-2023 Nurse Note Patient presents seeking inpatient [...] of tobacco. Multiple admissions for detox at [facility]. Is actually not allowed back on the detox unit at [facility] because of some incident that occurred [...] with his . 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 Has a valid ID. is able to transport patient because he does not currently drive. [place] [employer] for health insurance coverage. Plan is to admit patient medically for detox at [facility]. Would also recommend that patient follow up with IOP on discharge. Patient seemed interested in Vivitrol. Patient provided with a list of treatment resources in addition to First Step, IOP, Vivitrol, and [employer] [facility] [place] Peer Cylinder Worker Service pamphlets. [facility] 11-27-2023 Note NOTE: This result is for medical treatment only. Analysis performed using non-forensic procedures. [facility] 11-27-2023 Emergency department Note The following are the next steps in your Substance use Treatment Plan: Get admitted to detox then Vivitrol, IOP, and therapy afterwards. Please make sure you follow up after getting discharged from the hospital. Below are additional resources that you may find beneficial in your treatment: 12-Step: Heroin Anonymous : Dayne Gray: [phone], Luis Fernando Cloud: [phone] Narcotics Anonymous: 888-GET_HOPE (219-066-2268) Quenche.org Alcohol Anonymous: akronaa.org Cocaine Anonymous: https://www.Gesplanhio.org/meetings/ak abe, NarAnon: 862.568.7383: 12-step program for families & friends of people with addiction. CRISIS: Homeless Hotline: 436.287.6760 Domestic Violence help line anytime: 149.856.4031 Crisis Hotline: 22/10- 497.558.5900 ADM Addiction Helpline: 642.781.5392 (available 8:30 AM to 4:00 PM ) 2-1-1 2-1-1 helps people across [facility] find local resources when they don't know where to turn for help. We are available 24 hours a day, 7 days a week. For help, simply dial -1-1 to speak to one of our trained professionals. METHADONE TREATMENT: [facility], [place] [phone] [place] [place], [place] [phone] [facility], [place] [phone] [facility] [place], [place] [phone] [facility]- [phone] ext. [phone] [facility] ([place])- [phone] DETOX TREATMENT: [facility]: anytime @ [phone] for alcohol & drug addiction help. [facility], [place] [phone] [facility] coordination: [phone] (Medicare not accepted) [facility] [place]: [phone] ([place] Medicaid not accepted) [facility] [place]: [phone] ([place] Medicaid not accepted) [place], [place]: [phone] (Will Coordinate Transportation) [facility] [place]: [phone] [place], [place]: [phone], [facility] [place]: [phone] [place], [place] [phone] [facility] [place] [facility] [place]: [phone] (Will Coordinate Transportation) [facility], [place], [place] [phone] ext. [phone] [place], [place] (pt. must be medically cleared prior to admission in ED) [place], [place] [phone] [place], [place]: [phone] ([place] Medicaid not accepted) [facility], [place], [place] [phone] (Will Coordinate Transportation) [phone] OUTPATIENT TREATMENT: [facility] Addiction Medicine @ [place], [place] [phone] [facility] Recovery House: Inpatient or Outpatient- [phone] 1st Step MAT Program @ [facility] ED: [phone] 1st Step MAT Program @ [facility] ED: [phone] 1st Step MAT Program @ [facility] ED: [phone], INTENSIVE OUTPATIENT PROGRAMS @ [place], [place] [phone] [place], [place] [phone] [place], [place] [phone] [place], [place] [phone] [facility]: [phone] [facility], [place], [place] [phone] [facility], [place]: [phone], [place]: [phone] [place], [place]: [phone] [facility], [place]: [phone], [place]: [phone] [facility]: [phone]; [place]: [phone] [facility] (Emphasis on minorities): [email or web address], [place], [place] [phone] [facility] SERVICES: Jarred Caruso [facility] [place]: [phone] [place] Mervin Schultz [place], [place] [phone] [facility], [place], [place] [phone] [facility] [phone] [facility] SERVICES: One [employer] (180): KADEN Bland [phone] [place] Butler [facility] Jayy: [phone] RESIDENTIAL TREATMENT FACILITIES: [facility], [place], [place] [phone] (admission coordinated by ADM Gurvinder Landers ext [phone]) [facility] [place], [place]: [phone]; Men's services inpt. & women services - Outpt. [place], [place] [phone] [facility], [place], [place] [phone] [facility], [place], [place] [phone] [facility], [place], [place] [phone] [place], [place] [phone] [facility], [place], [place] [phone] [facility] [place], [place] [phone] [facility], [place], [place]-PHP, [facility], [facility] [phone] [facility]ylinder Worker service: [phone] [facility]: [phone] ext. [phone] Medicaid Health Coverage: [place] JFS: [phone] Larry Avila RN 11/27/23 2967 [facility] [employer] 11-27-2023 Emergency department Note Detox rules read and signed by patient. Witnessed by this RN. Larry Avila RN 11/27/23 0672 [facility] [employer] 11-27-2023 Physician Emergency department Note EMERGENCY DEPARTMENT [...] period of sobriety while he was in long term although appears that his last time in [...] CYST REMOVAL face EGD (HISTORICAL) 07/23/2022 Dr. [facility] SMALL INTESTINE SURGERY UPPER GASTROINTESTINAL ENDOSCOPY 09/27/2021 [...] Depression Sister Maria De Jesus Hogan Other ([id number]) Sister Maria De Jesus Hogan agoraphobia Arthritis Sister Maria De Jesus Hogan Cancer Mother Maria De Jesus Hogan colon rectal cancer; dx after age 50 Other ([id number]) Mother Maria De Jesus Hogan alcoholism Alcohol abuse Mother Maria De Jesus Hogan Stroke Mother Maria De Jesus Hogan Other ([id number]) Father Maria De Jesus Hogan h/o rheumatic [...] 0 min Stress: Stress Concern Present (07/28/2023) [employer] [place] [employer]ational [employer] - Occupational Stress Questionnaire Feeling of Stress : To some extent Social Connections: Moderately Isolated (07/28/2023) Social Connection and Isolation Panel [NHANES] Frequency of Communication with Friends and Family: Twice a week Frequency of Social Gatherings with Friends and Family: Once a week Attends Tenriism Services: Never Active Member of Clubs or [...] Response: Oriented Best Motor Response: Follows commands [place] Coma Scale Score: 15 PHYSICAL EXAM ED [...] Procedure Abnormality Status --------- ------ Basic metabolic panel[[id number]] Abnormal Final result Please view results for [...] TIME PATIENT REFERRED TO: Lynda Rasheed MD [address] [place] [address] [address] [facility] [id number] DISCHARGE MEDICATIONS: Discharge Medication List as of [...] Demarco MD (electronically signed) Emergency Medicine Provider [facility] Steve Demarco MD 11/30/23 1518 That{img} Phone: 11-27-2023 Physician Emergency department Note Emergency Department Encounter Location: [facility] ED Patient: Maria De Jesus Hogan : 1965 Date of evaluation: 11/27/2023 ED Provider: Val Fragoso MD 9642 Maria De Jesus Hogan was checked out [...] have a period of sobriety while in long term. He states earlier in the ER he [...] 97.2 mg (97.2 mg Oral Given 11/27/23 6604) Final Impression 1. 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 Efforts were made to edit the dictations but occasionally words are mis-transcribed.) Val Fragoso MD [employer] Val Fragoso MD 11/28/23 0515 [facility] 08-01-2023 Telephone encounter Note Go ahead and send the prescriptions. However no further refills until patient is evaluated. We schedule an appointment with him. If unable to come in person I will okay him doing a virtual. Please pend the scripts needed refilled please [facility] 08-01-2023 Miscellaneous Notes Go ahead and send the prescriptions. However no further refills until patient is evaluated. We schedule an appointment with him. If unable to come in person I will okay him doing a virtual. Please pend the scripts needed refilled please documented in this encounter [facility] 07-31-2023 History of Present illness Narrative 1305: [...] has leny't for Intensive Outpt Program at [place] and is open to attending AA meetings, [...] encouraged to voice any concerns to staff. [facility] Respiratory Care Department Progress Note [...] - labs/tests/tasks to review: none Recovery plan: CLAIM TECHNICIAN plan for further addiction treatment at [facility] JUAN Rothman NP Addiction Medicine 07/29/2023 at 1:24 PM Note: Narrative portions of note written using [employer] dictation software. Efforts are made to dictate [...] a level 1. documented in this encounter [facility] 07-31-2023 Note Formatting of this n ote might be different from the original. Patient to be overheard in another patient's room discussing their treatment plans and aftercare. Patient providing his own recommendations on MAT services for patient despite not knowing patient's medical history of [place]. Patient has been informed to not involve himself in other patients care or be intrusive with treatment plans. Patient then came to CLAIM TECHNICIAN's office while she was talking to resident. Patient begins to ask questions about leaving AMA. CLAIM TECHNICIAN noted that patient is already being discharged and why would he inquire about leaving AMA. Patient did acknowledge that he was asking questions for another patient. CLAIM TECHNICIAN explained to patient again that he needs to not involve himself with other patients aftercare plans and that she cannot discuss other patients medical care with him at current time. Patient then leaves CLAIM TECHNICIAN's office and is overheard in another patient's room discussing information with her which was inappropriate. Patient that he was discussing with became distraught crying and yelling from her room. All information shared with nurse practitioner. [facility] 07-31-2023 Note Formatting of this n ote might be different from the original. Patient to be overheard in another patient's room discussing their treatment plans and aftercare. Patient providing his own recommendations on MAT services for patient despite not knowing patient's medical history of [place]. Patient has been informed to not involve himself in other patients care or be intrusive with treatment plans. Patient then came to CLAIM TECHNICIAN's office while she was talking to resident. Patient begins to ask questions about leaving AMA. CLAIM TECHNICIAN noted that patient is already being discharged and why would he inquire about leaving AMA. Patient did acknowledge that he was asking questions for another patient. CLAIM TECHNICIAN explained to patient again that he needs to not involve himself with other patients aftercare plans and that she cannot discuss other patients medical care with him at current time. Patient then leaves CLAIM TECHNICIAN's office and is overheard in another patient's room discussing information with her which was inappropriate. Patient that he was discussing with became distraught crying and yelling from her room. All information shared with nurse practitioner. [facility] 07-31-2023 Miscellaneous Notes Patient to be overheard in another patient's room discussing their treatment plans and aftercare. Patient providing his own recommendations on MAT services for patient despite not knowing patient's medical history of [place]. Patient has been informed to not involve himself in other patients care or be intrusive with treatment plans. Patient then came to CLAIM TECHNICIAN's office while she was talking to resident. Patient begins to ask questions about leaving AMA. CLAIM TECHNICIAN noted that patient is already being discharged and why would he inquire about leaving AMA. Patient did acknowledge that he was asking questions for another patient. CLAIM TECHNICIAN explained to patient again that he needs to not involve himself with other patients aftercare plans and that she cannot discuss other patients medical care with him at current time. Patient then leaves CLAIM TECHNICIAN's office and is overheard in another patient's room discussing information with her which was inappropriate. Patient that he was discussing with became distraught crying and yelling from her room. All information shared with nurse practitioner. CLAIM TECHNICIAN saw patient to discuss aftercare plans and treatment post discharge. Patient was reminded about follow-up with [facility] 08/05/2023 at 1 PM. Patient still agreeable to aftercare plans. Patient denied current SI/HI/AVH. Patient reported that their would be picking them up from the hospital and taking them back home. Patient denied needing anything further from CLAIM TECHNICIAN at the time. BENNIE informed patient's nurse [...] Jesus Hogan Date of : 1965 MR: [id number] Appearance: Good eye contact Affect: Appropriate Behavior: [...] Jesus Hogan Date of : 1965 MR: [id number] Appearance: Good eye contact Affect: Appropriate Behavior: [...] BPH (benign prostatic hyperplasia) Tachycardia Patient approached CLAIM TECHNICIAN asking for assistance with scheduling IOP. Patient reports interest IOP at [facility]. CLAIM TECHNICIAN will assist with scheduling appointment. CLAIM TECHNICIAN called and scheduled patient for intake assessment at [facility] 08/05/2023 at 1:00pm. All information included inpatient's [...] plans to engage at the [facility], patient reports however he did not [...] of engagement with [facility] in [place] for outpatient mental health treatment. Patient has [...] as an adult. Patient denies any history [place] or status. Family Constellation/Childhood History: Patient reports that he is currently to his living in [facility]. Patient reports that he has 3 biological children and 4 stepchildren. Patient reports that his father in his 11 years old. Patient did not report his mother is still alive currently. Patient was born and raised in [place], [place] by his mother and father. 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 Patient denies SSI/SSD. Cultural/Spirituality/Leisure: Patient denies any cultural needs or concerns at the current time. Patient denies identify any presybeterian preference. It is unknown if patient is [...] declined aftercare assistance while on the unit. CLAIM TECHNICIAN will continue to work with patient to identify aftercare plans. Patient encouraged to engage in all activities that are offered to them while they are on the unit. Patient report needing additional current time. Patient encouraged to seek out CLAIM TECHNICIAN unit staff should they identify any additional [...] provider for clarification. documented in this encounter [facility] 07-31-2023 Note Formatting of this n ote might be different from the original. CLAIM TECHNICIAN saw patient to discuss aftercare plans and treatment post discharge. Patient was reminded about follow-up with [facility] 08/05/2023 at 1 PM. Patient still agreeable to aftercare plans. Patient denied current SI/HI/AVH. Patient reported that their would be picking them up from the hospital and taking them back home. Patient denied needing anything further from CLAIM TECHNICIAN at the time. CLAIM TECHNICIAN informed patient's nurse about conversation. [facility] 07-31-2023 Note Formatting of this n ote might be different from the original. CLAIM TECHNICIAN saw patient to discuss aftercare plans and treatment post discharge. Patient was reminded about follow-up with [facility] 08/05/2023 at 1 PM. Patient still agreeable to aftercare plans. Patient denied current SI/HI/AVH. Patient reported that their would be picking them up from the hospital and taking them back home. Patient denied needing anything further from CLAIM TECHNICIAN at the time. CLAIM TECHNICIAN informed patient's nurse about conversation. [facility] 07-31-2023 Note Formatting of this n ote might be different from the original. While attempting to talk to another patient about discharge and aftercare plans this patient decided to stop in the hallway as well and attempt to listen to and engage in conversation about another patient's healthcare treatment and plans. CLAIM TECHNICIAN explained to this patient that his need to involve himself and other patient's care was inappropriate and that he should continue to work his way to the other end of the hallway. Patient moved to the other end of the hallway as directed by BENNIE. [employer] 07-31-2023 Note Formatting of this n ote might be different from the original. While attempting to talk to another patient about discharge and aftercare plans this patient decided to stop in the hallway as well and attempt to listen to and engage in conversation about another patient's healthcare treatment and plans. CLAIM TECHNICIAN explained to this patient that his need to involve himself and other patient's care was inappropriate and that he should continue to work his way to the other end of the hallway. Patient moved to the other end of the hallway as directed by BENNIE. [employer] 07-31-2023 Group counseling note Department: [facility] THER[facility] Group Topic: Other Group [...] Jesus Hogan Date of : 1965 MR: [id number] Appearance: Good eye contact Affect: Appropriate Behavior: [...] Conversion reaction BPH (benign prostatic hyperplasia) Tachycardia [facility] 07-31-2023 Nurse Note Patient up and visible [...] SI/HI/AVH. Patient left unit ambulatory with staff. [facility] 07-31-2023 Nurse Note Patient up and visible [...] oxygen nasal cannula initiated. Pt arrived from [facility] via cart with squad and security at [...] pt for safety. documented in this encounter [facility] 07-31-2023 Hospital course Narrative Addiction Medicine Detox [...] pm received a call from nurse and CLAIM TECHNICIAN, Patient began going in other patient's room [...] 358 ms QTC Interval 461 ms P [place] 66 degrees QRS [place] 68 degrees T Wave [place] 46 degrees [place] Interval 156 ms Discharge Medication List Medication [...] given to pursue chemical dependency treatment at: [facility] The patient was also instructed to: [...] Note: Narrative portions of note written using [employer] dictation software. Efforts are made to dictate clearly and proofread but errors in dictation still may occur. Please reach out to author with any clarifying questions. Associated attestation - Jonatan Mckeon MD - 07/31/2023 4:30 PM EDT I have reviewed the documented history, ROS, physical exam, and decision making and agree. Jonatan Mckeon MD documented in this encounter [facility] 07-30-2023 Group counseling note Department: [facility] Group Topic: Other Group [...] Jesus Hogan Date of : 1965 MR: [id number] Appearance: Good eye contact Affect: Appropriate Behavior: [...] reaction BPH (benign prostatic hyperplasia) Tachycardia T [facility] 07-30-2023 Note Formatting of this n ote might be different from the original. Patient approached CLAIM TECHNICIAN asking for assistance with scheduling IOP. Patient reports interest IOP at [facility]. CLAIM TECHNICIAN will assist with scheduling appointment. CLAIM TECHNICIAN called and scheduled patient for intake assessment at [facility] 08/05/2023 at 1:00pm. All information included inpatient's discharge paperwork. [facility] 07-30-2023 Note Formatting of this n ote might be different from the original. Patient approached CLAIM TECHNICIAN asking for assistance with scheduling IOP. Patient reports interest IOP at [facility]. CLAIM TECHNICIAN will assist with scheduling appointment. CLAIM TECHNICIAN called and scheduled patient for intake assessment at [facility] 08/05/2023 at 1:00pm. All information included inpatient's discharge paperwork. [facility] 07-29-2023 Plan of care note Problem: Potential for Substance Withdrawal Goal: Verbalizes signs/symptoms of withdrawal Outcome: Progressing Goal: Reports signs/symptoms of withdrawal Outcome: Progressing Goal: Free of withdrawal symptoms Outcome: Progressing Problem: Drug Abuse/Detox Goal: Will have no detox symptoms and will verbalize plan for changing drug-related behavior Outcome: Progressing [facility] 07-29-2023 Hospital Discharge instructions BENNIE Solis - [...] National Suicide Prevention Hotline if needed at: 7-076-356-DCAH (7926) Please call the following number should you have questions regarding your discharge or aftercare appointments: [facility] documented in this encounter [facility] 07-29-2023 Note Formatting of this n ote is different from the original. Behavioral Health Psycho-Social Assessment (Social Work) Date: 07/29/2023 Patient Name: Maria De Jesus oHgan : 1965 Identifying Information: Patient is a 57-year-old male admitted to for detox from alcohol. Patient is well-known to addiction medicine team as he was previously on the unit on 07/08/2023. Patient patient left the unit in 2023 with plans to engage at the [facility], patient reports however he did not [...] He has previous history of engagement with [facility] in [place] for outpatient mental health treatment. Patient has [...] as an adult. Patient denies any history [place] or status. Family Constellation/Childhood History: Patient reports that he is currently to his living in [facility]. Patient reports that he has 3 biological children and 4 stepchildren. Patient reports that his father in his 9 years old. Patient did not report his mother is still alive currently. Patient was born and raised in [place], [place] by his mother and father. 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 Patient denies SSI/SSD. Cultural/Spirituality/Leisure: Patient denies any cultural needs or concerns at the current time. Patient denies identify any presybeterian preference. It is unknown if patient is [...] declined aftercare assistance while on the unit. [facility] will continue to work with patient to identify aftercare plans. Patient encouraged to engage in all activities that are offered to them while they are on the unit. Patient report needing additional current time. Patient encouraged to seek out CLAIM TECHNICIAN unit staff should they identify any additional [...] to contact the dictating provider for clarification. [facility] 07-29-2023 Note Formatting of this n ote [...] plans to engage at the [facility], patient reports however he did not [...] He has previous history of engagement with [facility] in [place] for outpatient mental health treatment. Patient has [...] as an adult. Patient denies any history [place] or status. Family Constellation/Childhood History: Patient reports that he is currently to his living in [facility]. Patient reports that he has 3 biological children and 4 stepchildren. Patient reports that his father in his 11 years old. Patient did not report his mother is still alive currently. Patient was born and raised in [place], [place] by his mother and father. 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 Patient denies SSI/SSD. Cultural/Spirituality/Leisure: Patient denies any cultural needs or concerns at the current time. Patient denies identify any presybeterian preference. It is unknown if patient is [...] declined aftercare assistance while on the unit. CLAIM TECHNICIAN will continue to work with patient to identify aftercare plans. Patient encouraged to engage in all activities that are offered to them while they are on the unit. Patient report needing additional current time. Patient encouraged to seek out CLAIM TECHNICIAN unit staff should they identify any additional [...] contact the dictating provider for clarification. T [facility] 07-28-2023 Nurse Note Pt alert and oriented, [...] in condition. Will monitor pt for safety. [facility] 07-28-2023 Nurse Note Patient seclusive to room [...] PRN Vistaril for anxiety. Will monitor effectiveness. [facility] 07-28-2023 History and physical note Addiction Medicine [...] 07/11/2023 with plans of going to the [facility]. Patient reports that he never scheduled [...] a history of chemical dependency treatment at [facility]. Patient has a history of psychiatric admission [...] 0 min Stress: Stress Concern Present (07/28/2023) [place] [employer] - Occupational Stress Questionnaire Feeling of Stress : To some extent Social Connections: Moderately Isolated (07/28/2023) Social Connection and Isolation Panel [NHANES] Frequency of Communication with Friends and Family: Twice a week Frequency of Social Gatherings with Friends and Family: Once a week Attends Tenriism Services: Never Active Member of Clubs or [...] CYST REMOVAL face EGD (HISTORICAL) 07/23/2022 Dr. Estrella-[facility] SMALL INTESTINE SURGERY UPPER GASTROINTESTINAL ENDOSCOPY 09/27/2021 normal WISDOM TOOTH EXTRACTION Family History Problem Relation Name Age of Onset Depression Sister Maria De Jesus Hogan Other ([id number]) Sister Maria De Jesus Hogan agoraphobia Arthritis Sister Maria De Jesus Hogan Cancer Mother Maria De Jesus Hogan colon rectal cancer; dx after age 50 Other ([id number]) Mother Maria De Jesus Hogan alcoholism Alcohol abuse Mother Maria De Jesus Hogan Stroke Mother Maria De Jesus Hogan Other ([id number]) Father Maria De Jesus Hogan h/o rheumatic [...] 358 ms QTC Interval 461 ms P [place] 66 degrees QRS [place] 68 degrees T Wave [place] 46 degrees [place] Interval 156 ms CBC auto differential Collection [...] participate in all unit activities. Recovery plan: CLAIM TECHNICIAN to assist with aftercare treatment options: Will explore treatment options Tiki Ponce APRN - [facility] Addiction Medicine 07/28/2023 at 11:11 AM Note: Narrative portions of note written using [employer] dictation software. Efforts are made to dictate clearly and proofread but errors in dictation still may occur. Please reach out to author with any clarifying questions. T [facility] 07-28-2023 History and physical note Addiction Medicine [...] 07/11/2023 with plans of going to the [facility]. Patient reports that he never scheduled [...] a history of chemical dependency treatment at [facility]. Patient has a history of psychiatric admission [...] 0 min Stress: Stress Concern Present (07/28/2023) [place] [employer] - Occupational Stress Questionnaire Feeling of Stress : To some extent Social Connections: Moderately Isolated (07/28/2023) Social Connection and Isolation Panel [NHANES] Frequency of Communication with Friends and Family: Twice a week Frequency of Social Gatherings with Friends and Family: Once a week Attends Tenriism Services: Never Active Member of Clubs or [...] CYST REMOVAL face EGD (HISTORICAL) 07/23/2022 Dr. Estrella-[facility] SMALL INTESTINE SURGERY UPPER GASTROINTESTINAL ENDOSCOPY 09/27/2021 normal WISDOM TOOTH EXTRACTION Family History Problem Relation Name Age of Onset Depression Sister Maria De Jesus Hogan Other ([id number]) Sister Maria De Jesus Hogan agoraphobia Arthritis Sister Maria De Jesus Hogan Cancer Mother Maria De Jesus Hogan colon rectal cancer; dx after age 50 Other ([id number]) Mother Maria De Jesus Hogan alcoholism Alcohol abuse Mother Maria De Jesus Hogan Stroke Mother Maria De Jesus Hogan Other ([id number]) Father Maria De Jesus Hogan h/o rheumatic [...] 358 ms QTC Interval 461 ms P [place] 66 degrees QRS [place] 68 degrees T Wave [place] 46 degrees [place] Interval 156 ms CBC auto differential Collection [...] participate in all unit activities. Recovery plan: CLAIM TECHNICIAN to assist with aftercare treatment options: Will explore treatment options Tiki Ponce APRN - 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 Addiction Medicine 07/28/2023 at 11:11 AM Note: Narrative portions of note written using [employer] dictation software. Efforts are made to dictate clearly and proofread but errors in dictation still may occur. Please reach out to author with any clarifying questions. documented in this encounter [facility] 07-28-2023 Nurse Note Continuous pulse ox initiated Dr. Daniel notified of pts spo2 dropping below 90% on room air and respirations of 28, supplemental oxygen nasal cannula initiated. [facility] 07-27-2023 Nurse Note Pt arrived from [facility] via cart with squad and security [...] in condition. Will monitor pt for safety. [facility] 07-27-2023 Emergency department Note [facility] en route with patient at this time. Alpa Middleton RN 07/27/232236 [facility] 07-27-2023 Emergency department Note Report given to 4E RN at this time Alpa Middleton RN 07/27/232236 [facility] 07-27-2023 Emergency department Note [facility] en route with patient at this time. Alpa Middleton RN 07/27/232236 Report given to 4E RN at this time Alpa Middleton RN 07/27/23 [id number] This will serve as my Supervisory note [...] emergency department visit, please see their documentation. [facility] ED EMERGENCY DEPARTMENT ENCOUNTER Pt Name: Maria [...] CYST REMOVAL face EGD (HISTORICAL) 07/23/2022 Dr. Estrella-[facility] SMALL INTESTINE SURGERY UPPER GASTROINTESTINAL ENDOSCOPY 09/27/2021 [...] Depression Sister Maria De Jesus Hogan Other ([id number]) Sister Maria De Jesus Hogan agoraphobia Arthritis Sister Maria De Jesus Hogan Cancer Mother Maria De Jesus Hogan colon rectal cancer; dx after age 50 Other ([id number]) Mother Maria De Jesus Hogan alcoholism Alcohol abuse Mother Maria De Jesus Hogan Stroke Mother Maria De Jesus Hogan Other ([id number]) Father Maria De Jesus Hogan h/o rheumatic [...] 0 min Stress: Stress Concern Present (07/09/2023) [place] [employer] - Occupational Stress Questionnaire Feeling of Stress : Very much Social Connections: Moderately Isolated (07/09/2023) Social Connection and Isolation Panel [NHANES] Frequency of Communication with Friends and Family: More than three times a week Frequency of Social Gatherings with Friends and Family: More than three times a week Attends Tenriism Services: Never Active Member of Clubs or [...] Triston Abraham MD [facility] Emergency Medicine Physician [facility] Triston Abraham MD 07/27/232225 EMERGENCY DEPARTMENT [...] CYST REMOVAL face EGD (HISTORICAL) 07/23/2022 Dr. Estrella-[facility] SMALL INTESTINE SURGERY UPPER GASTROINTESTINAL ENDOSCOPY 09/27/2021 [...] Depression Sister Maria De Jesus Hogan Other ([phone]) Sister Maria De Jesus Hogan agoraphobia Arthritis Sister Maria De Jesus Hogan Cancer Mother Maria De Jesus Hogan colon rectal cancer; dx after age 50 Other ([id number]) Mother Maria De Jesus Hogan alcoholism Alcohol abuse Mother Maria De Jesus Hogan Stroke Mother Maria De Jesus Hogan Other ([id number]) Father Maria De Jesus Hogan h/o rheumatic [...] 0 min Stress: Stress Concern Present (07/09/2023) [place] [employer] - Occupational Stress Questionnaire Feeling of Stress : Very much Social Connections: Moderately Isolated (07/09/2023) Social Connection and Isolation Panel [NHANES] Frequency of Communication with Friends and Family: More than three times a week Frequency of Social Gatherings with Friends and Family: More than three times a week Attends Tenriism Services: Never Active Member of Clubs or [...] was this evening documented in this encounter [facility] 07-27-2023 Note NOTE: This result is for medical treatment only. Analysis performed using non-forensic procedures. [facility] 07-27-2023 Emergency department Triage note Pt states he was recently at detox for ETOH. States he is sleeping a lot having abdominal pain and nausea and just wants to feel better last drink was this evening [facility] 07-27-2023 Physician Emergency department Note This will [...] emergency department visit, please see their documentation. [facility] ED EMERGENCY DEPARTMENT ENCOUNTER Pt Name: Maria [...] CYST REMOVAL face EGD (HISTORICAL) 07/23/2022 Dr. Estrella-[facility] SMALL INTESTINE SURGERY UPPER GASTROINTESTINAL ENDOSCOPY 09/27/2021 [...] Depression Sister Maria De Jesus Hogan Other ([id number]) Sister Maria De Jesus Hogan agoraphobia Arthritis Sister Maria De Jesus Hogan Cancer Mother Maria De Jesus Hogan colon rectal cancer; dx after age 50 Other ([id number]) Mother Maria De Jesus Hogan alcoholism Alcohol abuse Mother Maria De Jesus Hogan Stroke Mother Maria De Jesus Hogan Other ([phone]) Father Maria De Jesus Hogan h/o rheumatic [...] 0 min Stress: Stress Concern Present (07/09/2023) [place] [employer] - Occupational Stress Questionnaire Feeling of Stress : Very much Social Connections: Moderately Isolated (07/09/2023) Social Connection and Isolation Panel [NHANES] Frequency of Communication with Friends and Family: More than three times a week Frequency of Social Gatherings with Friends and Family: More than three times a week Attends Tenriism Services: Never Active Member of Clubs or [...] [facility] (Per Emergency Physician): Interpretation per the [...] Triston Abraham MD [place] Emergency Medicine Physician [facility] Triston Abraham MD 07/27/232225 [email or web address] Work Phone: 07-27-2023 Physician Emergency department Note [...] of this encounter. HPI Maria De Jesus Hoagn is a 57 y.o. who presents to [...] CYST REMOVAL face EGD (HISTORICAL) 07/23/2022 Dr. Estrella-[facility] SMALL INTESTINE SURGERY UPPER GASTROINTESTINAL ENDOSCOPY 09/27/2021 [...] Depression Sister Maria De Jesus Hogan Other ([phone]) Sister Maria De Jesus Hogan agoraphobia Arthritis Sister Maria De Jesus Hogan Cancer Mother Maria De Jesus Hogan colon rectal cancer; dx after age 50 Other ([id number]) Mother Maria De Jesus Hogan alcoholism Alcohol abuse Mother Maria De Jesus Hogan Stroke Mother Maria De Jesus Hogan Other ([id number]) Father Maria De Jesus Hogan h/o rheumatic [...] 0 min Stress: Stress Concern Present (07/09/2023) [place] [employer] - Occupational Stress Questionnaire Feeling of Stress : Very much Social Connections: Moderately Isolated (07/09/2023) Social Connection and Isolation Panel [NHANES] Frequency of Communication with Friends and Family: More than three times a week Frequency of Social Gatherings with Friends and Family: More than three times a week Attends Tenriism Services: Never Active Member of Clubs or [...] Provider Rosalina Burgos DO Resident 07/27/232124 T [facility] 07-19-2023 Telephone encounter Note Recent Visits Date Type Provider Dept 12/26/22 Office Visit Lynda Rasheed MD [facility] 09/25/22 Office Visit Lynda Rasheed MD [facility] 08/01/22 Office Visit Lynda Rasheed MD [facility] Showing recent visits within past 365 days [...] Most recent labs completed in chart? N/A [facility] 07-19-2023 Miscellaneous Notes Recent Visits Date Type Provider Dept 12/26/22 Office Visit Lynda Rasheed MD [facility] 09/25/22 Office Visit Lynda Rasheed MD [facility] 08/01/22 Office Visit Lynda Rasheed MD [facility] Showing recent visits within past 365 [...] in chart? N/A documented in this encounter [facility] 07-11-2023 History of Present illness Narrative [facility] here to black pickler. Tech escorted from the unit to 70 arch. 410 pm Reviewed discharge. Signed. Discussed AA with patient. States he most likely will not go. [facility] is planing on going to an IOP. [...] time does not have healthcare power of client resolution specialist, living will, or documentation expressing his end-of-life [...] own after discharge. Will include information for [facility] and avenues. Patient states willing to stay [...] questions or concerns. documented in this encounter [facility] 07-11-2023 Group counseling note Department: [facility] Group Topic: Music Therapy [...] Jesus Hogan Date of : 1965 MR: [id number] Mental Status Exam: Appearance: Appropriately dressed and [...] Conversion reaction BPH (benign prostatic hyperplasia) Tachycardia [facility] 07-11-2023 Miscellaneous Notes Department: [facility] Group Topic: Music Therapy [...] Jesus Hogan Date of : 1965 MR: [id number] Mental Status Exam: Appearance: Appropriately dressed and [...] Conversion reaction BPH (benign prostatic hyperplasia) Tachycardia CLAIM TECHNICIAN saw patient to discuss aftercare plans and treatment post discharge. Patient declined to allow CLAIM TECHNICIAN to assist with scheduling aftercare appointments. CLAIM TECHNICIAN included information for agencies in patient's local community for him to call and schedule engagement with. Patient denied current SI/HI/AVH. Patient reported that their would be picking them up from the hospital and taking them back home. Patient denied needing anything further from CLAIM TECHNICIAN at the time. CLAIM TECHNICIAN informed patient's nurse about conversation. CHEF INSTRUCTOR met with patient again to inquire about aftercare plans. Patient reports that he is interested in reengaging with an agency for [facility] in the [facility]. CLAIM TECHNICIAN offered to identify aftercare agencies for patient and schedule intake appointment however patient is declining reporting that he would like to schedule his own aftercare appointments. CLAIM TECHNICIAN included information for [facility] and [facility]. CLAIM TECHNICIAN will continue to follow-up as necessary. Patient encouraged to seek out CLAIM TECHNICIAN should he identify any additional care plans. [...] seen in January 2021 Where patient left [place]. Presenting Problem: Patient presented to the ED [...] He has previous history of engagement with [facility] in [place] for outpatient mental health treatment. Patient has [...] as an adult. Patient denies any history [place] or status. Family Constellation/Childhood History: Patient reports that he is currently to his living in [facility]. Patient reports that he has 3 biological children and 4 stepchildren. Patient reports that his father in his 11 years old. Patient did not report his mother is still alive currently. Patient was born and raised in [place], [place] by his mother and father. 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 Patient denies SSI/SSD. Cultural/Spirituality/Leisure: Patient denies any cultural needs or concerns at the current time. Patient denies identify any presybeterian preference. It is unknown if patient is [...] declined aftercare assistance while on the unit. [facility] will continue to work with patient to identify aftercare plans. Patient encouraged to engage in all activities that are offered to them while they are on the unit. Patient report needing additional current time. Patient encouraged to seek out [facility] unit staff should they identify any additional [...] anxiety Outcome: Progressing documented in this encounter [facility] 07-11-2023 Note Formatting of this n ote might be different from the original. CLAIM TECHNICIAN saw patient to discuss aftercare plans and treatment post discharge. Patient declined to allow CLAIM TECHNICIAN to assist with scheduling aftercare appointments. CLAIM TECHNICIAN included information for agencies in patient's local community for him to call and schedule engagement with. Patient denied current SI/HI/AVH. Patient reported that their would be picking them up from the hospital and taking them back home. Patient denied needing anything further from CLAIM TECHNICIAN at the time. CLAIM TECHNICIAN informed patient's nurse about conversation. [facility] 07-11-2023 Note Formatting of this n ote might be different from the original. CLAIM TECHNICIAN saw patient to discuss aftercare plans and treatment post discharge. Patient declined to allow CLAIM TECHNICIAN to assist with scheduling aftercare appointments. CLAIM TECHNICIAN included information for agencies in patient's local community for him to call and schedule engagement with. Patient denied current SI/HI/AVH. Patient reported that their would be picking them up from the hospital and taking them back home. Patient denied needing anything further from CLAIM TECHNICIAN at the time. CLAIM TECHNICIAN informed patient's nurse about conversation. [facility] 07-11-2023 Hospital course Narrative Images from the original note were not included. ADDICTION MEDICINE 4E DETOX UNIT DISCHARGE SUMMARY Patient MRN Maria De Jesus Hogan [id number] 1965 Admit Date Discharge Date 07/08/2023 07/11/2023 Primary Care Physician Lynda Rasheed MD Admitting Physician Jonatan Mckeon MD Consultants SW. Reason for Admission Alcohol Withdrawal Maria De Jesus Hogan is a 57 y.o. year old male with SigPMHx of alcohol use disorder, severe, depression, anxiety, HTN, CAD, stroke/TIA, GERD, Lombardo's esophagus, GI bleed, pneumatosis, COPD, patient well-known to addiction medicine, that presented to [facility] ED on 07/08 for detox. While [...] discharge to follow up with IOP at [facility] on own, care team offered to schedule [...] 360 ms QTC Interval 474 ms P [place] 58 degrees QRS [place] 81 degrees T Wave [place] 39 degrees [place] Interval 149 ms Imaging ECG 12 lead [...] (100 mg) by mouth daily. Follow Up [facility] [address] [place] [address], [address] [place] [address] Schedule an appointment as soon as possible for a visit to engage in IOP/Counseling needs for addiction medicine follow up. [facility], [address], Community [facility] Schedule an appointment as soon as possible [...] Jonatan Mckeon MD documented in this encounter [facility] 07-10-2023 Nurse Note Patient assessed in group room. Pt is up and steady, seen socializing with other patients. Pt is cooperative and med compliant. Pt denies SI/HI/AVH. Pt encouraged to notify staff for any questions and concerns. [facility] 07-10-2023 Nurse Note Patient assessed in group [...] questions and concerns. documented in this encounter [facility] 07-10-2023 Nurse Note Mr. Hogan is sitting up in his room. He reports eating early this morning. He was encouraged to attend meetings offered. [facility] 07-09-2023 Nurse Note Patient assessed in patient's room. Pt is up and steady, withdrawn to room. Pt is cooperative and med compliant. Pt denies SI/HI/AVH. Pt encouraged to notify staff for any questions and concerns. [facility] 07-09-2023 History and physical note Images from [...] well-known to addiction medicine, that presented to [facility] ED on 07/08 for detox. While [...] consult. Patient has history of hospitalization at [place] for mood disorders. Current Substance Use Alcohol: [...] CYST REMOVAL face EGD (HISTORICAL) 07/23/2022 Dr. Estrella-[facility] SMALL INTESTINE SURGERY UPPER GASTROINTESTINAL ENDOSCOPY 09/27/2021 normal WISDOM TOOTH EXTRACTION Family History Family History Problem Relation Name Age of Onset Depression Sister Maria De Jesus Hogan Other ([id number]) Sister Maria De Jesus Hogan agoraphobia Arthritis Sister Maria De Jesus Hogan Cancer Mother Maria De Jesus Hogan colon rectal cancer; dx after age 50 Other ([id number]) Mother Maria De Jesus Hogan alcoholism Alcohol abuse Mother Maria De Jesus Hogan Stroke Mother Maria De Jesus Hogan Other ([id number]) Father Maria De Jesus Hogan h/o rheumatic [...] 0 min Stress: Stress Concern Present (07/09/2023) [place] [employer] - Occupational Stress Questionnaire Feeling of Stress : Very much Social Connections: Moderately Isolated (07/09/2023) Social Connection and Isolation Panel [NHANES] Frequency of Communication with Friends and Family: More than three times a week Frequency of Social Gatherings with Friends and Family: More than three times a week Attends Tenriism Services: Never Active Member of Clubs or [...] Utilities: Not At Risk (07/09/2023) [facility] Utilities Threatened with loss of utilities: [...] 360 ms QTC Interval 474 ms P [place] 58 degrees QRS [place] 81 degrees T Wave [place] 39 degrees [place] Interval 149 ms CBC auto differential Collection [...] own after discharge. Will include information for [facility] and avenues. Alcohol withdrawal Last use of [...] with the resident s findings and plan. [facility] 07-09-2023 History and physical note Images from [...] well-known to addiction medicine, that presented to [facility] ED on 07/08 for detox. While [...] consult. Patient has history of hospitalization at [place] for mood disorders. Current Substance Use Alcohol: [...] CYST REMOVAL face EGD (HISTORICAL) 07/23/2022 Dr. Estrella-[facility] SMALL INTESTINE SURGERY UPPER GASTROINTESTINAL ENDOSCOPY 09/27/2021 normal WISDOM TOOTH EXTRACTION Family History Family History Problem Relation Name Age of Onset Depression Sister Maria De Jesus Hogan Other ([id number]) Sister Maria De Jesus Hogan agoraphobia Arthritis Sister Maria De Jesus Hogan Cancer Mother Maria De Jesus Hogan colon rectal cancer; dx after age 50 Other ([id number]) Mother Maria De Jesus Hogan alcoholism Alcohol abuse Mother Maria De Jesus Hogan Stroke Mother Maria De Jesus Hogan Other ([id number]) Father Maria De Jesus Hogan h/o rheumatic [...] 0 min Stress: Stress Concern Present (07/09/2023) [place] [employer] - Occupational Stress Questionnaire Feeling of Stress : Very much Social Connections: Moderately Isolated (07/09/2023) Social Connection and Isolation Panel [NHANES] Frequency of Communication with Friends and Family: More than three times a week Frequency of Social Gatherings with Friends and Family: More than three times a week Attends Tenriism Services: Never Active Member of Clubs or [...] Utilities: Not At Risk (07/09/2023) [facility] Utilities Threatened with loss of utilities: [...] 360 ms QTC Interval 474 ms P [place] 58 degrees QRS [place] 81 degrees T Wave [place] 39 degrees [place] Interval 149 ms CBC auto differential Collection [...] own after discharge. Will include information for [facility] and avenues. Alcohol withdrawal Last use of [...] findings and plan. documented in this encounter [facility] 07-09-2023 Note Formatting of this n ote might be different from the original. CHEF INSTRUCTOR met with patient again to inquire about aftercare plans. Patient reports that he is interested in reengaging with an agency for IOP in the [facility]. CLAIM TECHNICIAN offered to identify aftercare agencies for patient and schedule intake appointment however patient is declining reporting that he would like to schedule his own aftercare appointments. CLAIM TECHNICIAN included information for [facility] and avenues. CLAIM TECHNICIAN will continue to follow-up as necessary. Patient encouraged to seek out CLAIM TECHNICIAN should he identify any additional care plans. T [facility] 07-09-2023 Note Formatting of this n ote might be different from the original. CHEF INSTRUCTOR met with patient again to inquire about aftercare plans. Patient reports that he is interested in reengaging with an agency for IOP in the [facility]. CLAIM TECHNICIAN offered to identify aftercare agencies for patient and schedule intake appointment however patient is declining reporting that he would like to schedule his own aftercare appointments. CLAIM TECHNICIAN included information for [facility] and avenues. CLAIM TECHNICIAN will continue to follow-up as necessary. Patient encouraged to seek out CLAIM TECHNICIAN should he identify any additional care plans. T [facility] 07-09-2023 Note Formatting of this n ote [...] He has previous history of engagement with [facility] in [place] for outpatient mental health treatment. Patient has [...] as an adult. Patient denies any history [place] or status. Family Constellation/Childhood History: Patient reports that he is currently to his living in [facility]. Patient reports that he has 3 biological children and 4 stepchildren. Patient reports that his father in his 11 years old. Patient did not report his mother is still alive currently. Patient was born and raised in [place], [place] by his mother and father. 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 Patient denies SSI/SSD. Cultural/Spirituality/Leisure: Patient denies any cultural needs or concerns at the current time. Patient denies identify any presybeterian preference. It is unknown if patient is [...] declined aftercare assistance while on the unit. CLAIM TECHNICIAN will continue to work with patient to identify aftercare plans. Patient encouraged to engage in all activities that are offered to them while they are on the unit. Patient report needing additional current time. Patient encouraged to seek out CLAIM TECHNICIAN unit staff should they identify any additional [...] to contact the dictating provider for clarification. [facility] 07-09-2023 Note Formatting of this n ote [...] seen in January 2021 Where patient left [place]. Presenting Problem: Patient presented to the ED [...] He has previous history of engagement with [facility] in [place] for outpatient mental health treatment. Patient has [...] as an adult. Patient denies any history [place] or status. Family Constellation/Childhood History: Patient reports that he is currently to his living in [facility]. Patient reports that he has 3 biological children and 4 stepchildren. Patient reports that his father in his 11 years old. Patient did not report his mother is still alive currently. Patient was born and raised in [place], [place] by his mother and father. 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 Patient denies SSI/SSD. Cultural/Spirituality/Leisure: Patient denies any cultural needs or concerns at the current time. Patient denies identify any presybeterian preference. It is unknown if patient is [...] declined aftercare assistance while on the unit. CLAIM TECHNICIAN will continue to work with patient to identify aftercare plans. Patient encouraged to engage in all activities that are offered to them while they are on the unit. Patient report needing additional current time. Patient encouraged to seek out CLAIM TECHNICIAN unit staff should they identify any additional [...] to contact the dictating provider for clarification. [facility] 07-09-2023 Hospital Discharge instructions BENNIE Solis - [...] National Suicide Prevention Hotline if needed at: 3-916-613-OVTY (9524) Please call the following number should you have questions regarding your discharge or aftercare appointments: 4 [facility] documented in this encounter [facility] 07-09-2023 Plan of care note Problem: Ineffective Coping Goal: Identifies ineffective coping skills Outcome: Progressing Goal: Identifies healthy coping skills Outcome: Progressing Goal: Demonstrates healthy coping skills Outcome: Progressing Problem: Anxiety Goal: Attempts to manage anxiety with help Outcome: Progressing Goal: Verbalizes ways to manage anxiety Outcome: Progressing Goal: Implements measures to reduce anxiety Outcome: Progressing [facility] 07-09-2023 Emergency department Note Report to [facility] at bedside. Pt packaged for transport to [facility] detox. Final wanding by protective services. Papito Ruiz RN 07/09/2340 [facility] 07-09-2023 Emergency department Note Report to [facility] at bedside. Pt packaged for transport to [facility] detox. Final wanding by protective services. Papito Ruiz RN 07/09/23 004 Report given to JAY Duran at by this RN. Reynaldo Acevedo RN 07/08/23 2259 Emergency Department Encounter [facility] ED Patient: Maria De Jesus Hogan : [...] CYST REMOVAL face EGD (HISTORICAL) 07/23/2022 Dr. Estrella-[facility] SMALL INTESTINE SURGERY UPPER GASTROINTESTINAL ENDOSCOPY 09/27/2021 [...] Depression Sister Maria De Jesus Hogan Other ([id number]) Sister Maria De Jesus Hogan agoraphobia Arthritis Sister Maria De Jesus Hogan Cancer Mother Maria De Jesus Hogan colon rectal cancer; dx after age 50 Other ([id number]) Mother Maria De Jesus Hogan alcoholism Alcohol abuse Mother Maria De Jesus Hogan Stroke Mother Maria De Jesus Hogan Other ([phone]) Father Maria De Jesus Hogan h/o rheumatic [...] 0 min Stress: Stress Concern Present (02/09/2023) [employer] [place] [employer] - Occupational Stress Questionnaire Feeling of Stress : Very much Social Connections: Moderately Isolated (02/09/2023) Social Connection and Isolation Panel [NHANES] Frequency of Communication with Friends and Family: More than three times a week Frequency of Social Gatherings with Friends and Family: More than three times a week Attends Tenriism Services: Never Active Member of Clubs or [...] cleared to be admitted to detox at [facility]. Patient was accepted to detox and transferred [...] MD Resident 07/08/232053 documented in this encounter [facility] 07-08-2023 Emergency department Note Report given to JAY Duran at by this RN. Reynaldo Acevedo RN 07/08/23 4528 [facility] 07-08-2023 Note NOTE: This result is for medical treatment only. Analysis performed using non-forensic procedures. [facility] 07-08-2023 Physician Emergency department Note Emergency Department Encounter [facility] ED Patient: Maria De Jesus Hogan : [...] for clarification.) CATALINO MUJICA MD Acute Care [facility] Catalino Mujica MD 07/08/23 1809 That{img} Phone: 07-08-2023 Physician Emergency department Note EMERGENCY [...] CYST REMOVAL face EGD (HISTORICAL) 07/23/2022 Dr. Estrella-[facility] SMALL INTESTINE SURGERY UPPER GASTROINTESTINAL ENDOSCOPY 09/27/2021 [...] Depression Sister Maria De Jesus Hogan Other ([id number]) Sister Maria De Jesus Hogan agoraphobia Arthritis Sister Maria De Jesus Hogan Cancer Mother Maria De Jesus Hogan colon rectal cancer; dx after age 50 Other ([id number]) Mother Maria De Jesus Hogan alcoholism Alcohol abuse Mother Maria De Jesus Hogan Stroke Mother Maria De Jesus Hogan Other ([id number]) Father Maria De Jesus Hogan h/o rheumatic [...] 0 min Stress: Stress Concern Present (02/09/2023) [employer] [place] [employer] - Occupational Stress Questionnaire Feeling of Stress : Very much Social Connections: Moderately Isolated (02/09/2023) Social Connection and Isolation Panel [NHANES] Frequency of Communication with Friends and Family: More than three times a week Frequency of Social Gatherings with Friends and Family: More than three times a week Attends Tenriism Services: Never Active Member of Clubs or [...] cleared to be admitted to detox at [facility]. Patient was accepted to detox and transferred [...] Provider Mehul Galindo II, MD Resident 07/08/232053 [facility] 06-26-2023 Telephone encounter Note MARIYA 9.27.23 NOV 4.4.24 [facility] 06-26-2023 Telephone encounter Note MARIYA 9.27.23 JAN 4.4.24 [facility] 06-26-2023 Miscellaneous Notes MARIYA 9.27.23 FEB 02..24 documented in this encounter [facility] 06-26-2023 Miscellaneous Notes MARIYA 9.27.23 FEB 02.4.24 documented in this encounter [facility] 06-15-2023 Telephone encounter Note This ACC RN [...] out. He said our program is great. [facility] 06-15-2023 Miscellaneous Notes This ACC RN spoke [...] program is great. documented in this encounter [facility] 06-15-2023 Telephone encounter Note Left message to call back ACC RN. [facility] 06-15-2023 Miscellaneous Notes Left message to call back ACC RN. documented in this encounter [facility] 06-06-2023 History of Present illness Narrative Missed Session Unexcused Pt did not call or show for Scheduled Assessment on this date. documented in this encounter [facility] 05-23-2023 Nurse Note Patient signed AMA papers and IV was discontinued per Patient request. Per Patient: Patient's outside to black pickler patient. [facility] 05-23-2023 Nurse Note Patient signed AMA papers and IV was discontinued per Patient request. Per Patient: Patient's outside to black pickler patient. Patient is stating that patient is [...] times an hour. documented in this encounter [facility] 05-23-2023 Note Formatting of this n ote [...] Stay (Days): 3 GMLOS: No GMLOS Documented [facility] 05-23-2023 Note Formatting of this n ote [...] Stay (Days): 3 GMLOS: No GMLOS Documented [facility] 05-23-2023 Miscellaneous Notes Images from the [...] PM Duration: 5 mins Type of Contact: [id number] Patient's Identified Case Management/Care Coordination Need(s) addressed [...] Limits Permission given to speak with patient surgical sales representative/caregiver as indicated: Yes Confirmation of Payer with patient/family: Yes Payer Name: [employer] [place]: No Confirmation of Primary Care Physician: Confirmed [...] positive for ethyl only this admission Iv [id number] q 4 hrs with lorazepam CIWA 3 per bedside RN. VSS IA completed with pt this am Introduced self and role. Pt is not employed Independent and resides with spouse in two story home flight to master b/b. Uses no DME Verified insurance and pharmacy as per [employer]. DCP home no needs when clinically cleared for dc. Tcc to follow. Ori Bone RN documented in this encounter [facility] 05-23-2023 Nurse Note Patient is stating that [...] very fast pace, multiple times an hour. [facility] 05-23-2023 History of Present illness Narrative [...] 0 min Stress: Stress Concern Present (02/09/2023) [place] [employer] - Occupational Stress Questionnaire Feeling of Stress : Very much Social Connections: Moderately Isolated (02/09/2023) Social Connection and Isolation Panel [NHANES] Frequency of Communication with Friends and Family: More than three times a week Frequency of Social Gatherings with Friends and Family: More than three times a week Attends Tenriism Services: Never Active Member of Clubs or [...] CYST REMOVAL face EGD (HISTORICAL) 07/23/2022 Dr. Estrella-[facility] SMALL INTESTINE SURGERY UPPER GASTROINTESTINAL ENDOSCOPY 09/27/2021 normal WISDOM TOOTH EXTRACTION Family History Problem Relation Name Age of Onset Depression Sister Maria De Jesus Hogan Other ([id number]) Sister Maria De Jesus Hogan agoraphobia Arthritis Sister Maria De Jesus Hogan Cancer Mother Maria De Jesus Hogan colon rectal cancer; dx after age 50 Other ([id number]) Mother Maria De Jesus Hogan alcoholism Alcohol abuse Mother Maria De Jesus Hogan Stroke Mother Maria De Jesus Hogan Other ([phone]) Father Maria De Jesus Hogan h/o rheumatic [...] 23, 2022. 10/23/22 Robyn Edmond APRN - G[employer] DELIVERY nicotine polacrilex (Commit) 2 MG lozenge Dissolve [...] portions of the note are written utilizing [employer] software. While every effort is made to [...] Extended Emergency Contact Information Primary Emergency Contact: O'Brien,April Mobile Relation: Spouse JUAN CLAUDIO CNP Division of Hospitalist Medicine [facility] Comment: Please note this report has been [...] 0 min Stress: Stress Concern Present (02/09/2023) [place] [employer] - Occupational Stress Questionnaire Feeling of Stress : Very much Social Connections: Moderately Isolated (02/09/2023) Social Connection and Isolation Panel [NHANES] Frequency of Communication with Friends and Family: More than three times a week Frequency of Social Gatherings with Friends and Family: More than three times a week Attends Tenriism Services: Never Active Member of Clubs or [...] CYST REMOVAL face EGD (HISTORICAL) 07/23/2022 Dr. Estrella-[facility] SMALL INTESTINE SURGERY UPPER GASTROINTESTINAL ENDOSCOPY 09/27/2021 normal WISDOM TOOTH EXTRACTION Family History Problem Relation Name Age of Onset Depression Sister Maria De Jesus Hogan Other ([id number]) Sister Maria De Jesus Hogan agoraphobia Arthritis Sister Maria De Jesus Hogan Cancer Mother Maria De Jesus Hogan colon rectal cancer; dx after age 50 Other ([id number]) Mother Maria De Jesus Hogan alcoholism Alcohol abuse Mother Maria De Jesus Hogan Stroke Mother Maria De Jesus Hogan Other ([id number]) Father Maria De Jesus Hogan h/o rheumatic [...] 381 ms QTC Interval 484 ms P [place] 78 degrees QRS [place] 75 degrees T Wave [place] 60 degrees [place] Interval 154 ms POCT venous blood gas [...] 23, 2022. 10/23/22 Robyn Edmond, JUAN - GAUGER DELIVERY nicotine polacrilex (Commit) 2 MG lozenge Dissolve [...] portions of the note are written utilizing [employer] software. While every effort is made to [...] Mobile Relation: Spouse EDA BERRY APRN - GAUGER DELIVERY Division of Hospitalist Medicine [employer] [facility] Nutrition rescreen completed. Chart reviewed. Patient to be monitored and followed by the diet is technician. Hospitalist Progress Note 05/21/2023 9:01 AM [phone]: Please reach me on [employer] Secure Chat for patient care issues. [phone]: Please page [facility] night Hospitalist for any issues. Subjective: Admit [...] JUAN ANAYA CNP Division of Hospitalist Medicine [facility] Comment: Please note this report has been produced using speech recognition software and may contain errors related to that system including errors in grammar, punctuation, and spelling, as well as words and phrases that may be inappropriate. If there is any questions or concerns please feel free to contact the dictating provider for clarification documented in this encounter [facility] 05-22-2023 Note Formatting of this n ote might be different from the original. [facility] Case Management/Care Coordination Note Date of Contact: 05/22/23 Start Time: 4:20 PM End Time: 4:25 PM Duration: 5 mins Type of Contact: [id number] Patient's Identified Case Management/Care Coordination Need(s) addressed [...] changes in his schedule/questions/concerns prior to appointment. [facility] [employer] 05-22-2023 Note Formatting of this n ote might be different from the original. [facility] Case Management/Care Coordination Note Date of Contact: 05/22/23 Start Time: 4:20 PM End Time: 4:25 PM Duration: 5 mins Type of Contact: [id number] Patient's Identified Case Management/Care Coordination Need(s) addressed [...] changes in his schedule/questions/concerns prior to appointment. [facility] [employer] 05-22-2023 Note Formatting of this n ote might be different from the original. Care Managment Initial Assessment Date: 05/22/2023 Patient Name: Maria De Jesus Hogan : 1965 Patient Information Source of Information: Patient Cognition/Language: WFL - Within Functional Limits Permission given to speak with patient surgical sales representative/caregiver as indicated: Yes Confirmation of Payer [...] positive for ethyl only this admission Iv [id number] q 4 hrs with lorazepam CIWA 3 per bedside RN. VSS IA completed with pt this am Introduced self and role. Pt is not employed Independent and resides with spouse in two story home flight to master b/b. Uses no DME Verified insurance and pharmacy as per [employer]. DCP home no needs when clinically cleared for dc. Tcc to follow. Ori Bone RN [facility] 05-22-2023 Note Formatting of this n ote might be different from the original. Care Managment Initial Assessment Date: 05/22/2023 Patient Name: Maria De Jesus Hogan : 1965 Patient Information Source of Information: Patient Cognition/Language: WFL - Within Functional Limits Permission given to speak with patient surgical sales representative/caregiver as indicated: Yes Confirmation of Payer [...] positive for ethyl only this admission Iv [id number] q 4 hrs with lorazepam CIWA 3 per bedside RN. VSS IA completed with pt this am Introduced self and role. Pt is not employed Independent and resides with spouse in two story home flight to master b/b. Uses no DME Verified insurance and pharmacy as per [employer]. DCP home no needs when clinically cleared for dc. Tcc to follow. Ori Bone RN [facility] 05-21-2023 Emergency department Note Sleeping soundly, respirations normal. Could not awaken with calling out name and slight touch. Left resources regarding addiction peer support at bedside with note. Candy Pearson RN 05/21/23 1156 [facility] [employer] 05-21-2023 Emergency department Note Sleeping soundly, respirations [...] slight agitation Estella De Dios RN 05/21/23 0719 Patient ordered breakfast. Alpa Middleton RN 05/21/23 [...] at 97% Alpa Middleton RN 05/20/23 2326 [facility] paged Judy Higgins RN 05/20/232234 Detox full [...] per day. 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 HISTORY OF PRESENT ILLNESS (Location/Symptom, Timing/Onset, Context/Setting, [...] CYST REMOVAL face EGD (HISTORICAL) 07/23/2022 Dr. Estrella-[facility] SMALL INTESTINE SURGERY UPPER GASTROINTESTINAL ENDOSCOPY 09/27/2021 [...] Depression Sister Maria De Jesus Hogan Other ([phone]) Sister Maria De Jesus Hogan agoraphobia Arthritis Sister Maria De Jesus Hogan Cancer Mother Maria De Jesus Hogan colon rectal cancer; dx after age 50 Other ([id number]) Mother Maria De Jesus Hogan alcoholism Alcohol abuse Mother Maria De Jesus Hogan Stroke Mother Maria De Jesus Hogan Other ([phone]) Father Maria De Jesus Hogan h/o rheumatic [...] 0 min Stress: Stress Concern Present (02/09/2023) [place] [employer] - Occupational Stress Questionnaire Feeling of Stress : Very much Social Connections: Moderately Isolated (02/09/2023) Social Connection and Isolation Panel [NHANES] Frequency of Communication with Friends and Family: More than three times a week Frequency of Social Gatherings with Friends and Family: More than three times a week Attends Tenriism Services: Never Active Member of Clubs or [...] Culture. Procedure Abnormality Status --------- ------ Complete Urinalysis[[id number]] Please view results for these tests on [...] [facility] He is has [...] 0 min Stress: Stress Concern Present (02/09/2023) [place] [employer] - Occupational Stress Questionnaire Feeling of Stress : Very much Social Connections: Moderately Isolated (02/09/2023) Social Connection and Isolation Panel [NHANES] Frequency of Communication with Friends and Family: More than three times a week Frequency of Social Gatherings with Friends and Family: More than three times a week Attends Tenriism Services: Never Active Member of Clubs or [...] CYST REMOVAL face EGD (HISTORICAL) 07/23/2022 Dr. Estrella-[facility] SMALL INTESTINE SURGERY UPPER GASTROINTESTINAL ENDOSCOPY 09/27/2021 normal WISDOM TOOTH EXTRACTION Family History Problem Relation Name Age of Onset Depression Sister Maria De Jesus Hogan Other ([phone]) Sister Maria De Jesus Hogan agoraphobia Arthritis Sister Maria De Jesus Hogan Cancer Mother Maria De Jesus Hogan colon rectal cancer; dx after age 50 Other ([phone]) Mother Maria De Jesus Hogan alcoholism Alcohol abuse Mother Maria De Jesus Hogan Stroke Mother Maria De Jesus Hogan Other ([phone]) Father Maria De Jesus Hogan h/o rheumatic [...] 381 ms QTC Interval 484 ms P [place] 78 degrees QRS [place] 75 degrees T Wave [place] 60 degrees [place] Interval 154 ms POCT venous blood gas [...] 23, 2022. 10/23/22 Robyn Edmond APRN - GAUGER DELIVERY nicotine polacrilex (Commit) 2 MG lozenge Dissolve [...] portions of the note are written utilizing [employer] software. While every effort is made to dictate clearly and proofread, errors in the dictation may still occur. If there are any questions regarding the dictation please do not hesitate to contact the author. [facility] 05-21-2023 Consult note Associated Order (s): [...] 0 min Stress: Stress Concern Present (02/09/2023) [place] [employer] - Occupational Stress Questionnaire Feeling of Stress : Very much Social Connections: Moderately Isolated (02/09/2023) Social Connection and Isolation Panel [NHANES] Frequency of Communication with Friends and Family: More than three times a week Frequency of Social Gatherings with Friends and Family: More than three times a week Attends Tenriism Services: Never Active Member of Clubs or [...] CYST REMOVAL face EGD (HISTORICAL) 07/23/2022 Dr. Estrella-[facility] SMALL INTESTINE SURGERY UPPER GASTROINTESTINAL ENDOSCOPY 09/27/2021 normal WISDOM TOOTH EXTRACTION Family History Problem Relation Name Age of Onset Depression Sister Maria De Jesus Hogan Other ([phone]) Sister Maria De Jesus Hogan agoraphobia Arthritis Sister Maria De Jesus Hogan Cancer Mother Maria De Jesus Hogan colon rectal cancer; dx after age 50 Other ([id number]) Mother Maria De Jesus Hogan alcoholism Alcohol abuse Mother Maria De Jesus Hogan Stroke Mother Maria De Jesus Hogan Other ([id number]) Father Maria De Jesus Hogan h/o rheumatic [...] 381 ms QTC Interval 484 ms P [place] 78 degrees QRS [place] 75 degrees T Wave [place] 60 degrees [place] Interval 154 ms POCT venous blood gas [...] 23, 2022. 10/23/22 Robyn Edmond APRN - GAUGER DELIVERY nicotine polacrilex (Commit) 2 MG lozenge Dissolve [...] portions of the note are written utilizing [employer] software. While every effort is made to dictate clearly and proofread, errors in the dictation may still occur. If there are any questions regarding the dictation please do not hesitate to contact the author. documented in this encounter [facility] 05-21-2023 Emergency department Note Pt upset with having all the cords and I dont need these blue things (seizure pads) educated pt on need for seizure pads due to the potential for seizures with withdrawal. RN placed another IV in hand per pt request to make the IV pump stop beeping. BP cuff removed. Estella De Dios RN 05/21/[address] [facility] 05-21-2023 Emergency department Note Rounding on pt: pt states I don't know I might need some more of that medicine CIWA reassessed, pt c/o anxiety and jitteriness, slight agitation Estella De Dios RN 05/21/[address] [facility] 05-21-2023 Emergency department Note Patient ordered breakfast. Alpa Middleton RN 05/21/[address] [facility] 05-21-2023 Emergency department Note Seizure pads placed on patient's bed at this time. Alpa Middleton RN 05/21/[address] [facility] 05-21-2023 Emergency department Note Patient told this RN that he is now feeling more jittery and anxious than before. CIWA reassessed. Alpa Middleton RN 05/21/[address] [facility] 05-21-2023 History and physical note Images from the original note were not included. History and Physical [facility] Chika O'Brien : 1965 AGE 57 y.o. YEARS Note [...] per day. 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 Estrella-[facility] SMALL INTESTINE SURGERY UPPER GASTROINTESTINAL ENDOSCOPY 09/27/2021 [...] Depression Sister Maria De Jesus Hogan Other ([phone]) Sister Maria De Jesus Hogan agoraphobia Arthritis Sister Maria De Jesus Hogan Cancer Mother Maria De Jesus Hogan colon rectal cancer; dx after age 50 Other ([id number]) Mother Maria De Jesus Hogan alcoholism Alcohol abuse Mother Maria De Jesus Hogan Stroke Mother Maria De Jesus Hogan Other ([phone]) Father Maria De Jesus Hogan h/o rheumatic [...] 05/20/2023 381 QTC Interval 05/20/2023 484 P [place] 05/20/2023 78 QRS [place] 05/20/2023 75 T Wave [place] 05/20/2023 60 [place] Interval 05/20/2023 154 Color, Urine 05/20/2023 Colorless [...] QT Interval 381 QTC Interval 484 P [place] 78 QRS [place] 75 T Wave [place] 60 [place] Interval 154 Impression Sinus rhythm Consider left [...] mechanical contraindicated 05/21/2023 Maria De Jesus Farr O'Brien [id number] Any scheduled follow up appointments Extended Emergency Contact Information Primary Emergency Contact: O'Brien Mobile Relation: Spouse Portions of this note may be electronically transcribed. Please forward a copy of this H&P to the primary care physician. [facility] [employer] Work Phone: 05-21-2023 History and physical note Images from the original note were not included. History and Physical [facility] Maria De Jesus Hogan : 1965 AGE [...] per day. 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 Estrella-[facility] SMALL INTESTINE SURGERY UPPER GASTROINTESTINAL ENDOSCOPY 09/27/2021 [...] Depression Sister Maria De Jesus Hogan Other ([id number]) Sister Maria De Jesus Hogan agoraphobia Arthritis Sister Maria De Jesus Hogan Cancer Mother Maria De Jesus Hogan colon rectal cancer; dx after age 50 Other ([id number]) Mother Maria De Jesus Hogan alcoholism Alcohol abuse Mother Maria De Jesus Hogan Stroke Mother Maria De Jesus Hogan Other ([id number]) Father Maria De Jesus Hogan h/o rheumatic [...] 05/20/2023 381 QTC Interval 05/20/2023 484 P [place] 05/20/2023 78 QRS [place] 05/20/2023 75 T Wave [place] 05/20/2023 60 [place] Interval 05/20/2023 154 Color, Urine 05/20/2023 Colorless [...] QT Interval 381 QTC Interval 484 P [place] 78 QRS [place] 75 T Wave [place] 60 [place] Interval 154 Impression Sinus rhythm Consider left [...] mechanical contraindicated 05/21/2023 Maria De Jesus Hogan [id number] Any scheduled follow up appointments Extended Emergency Contact Information Primary Emergency Contact: Samira Mobile Relation: Spouse Portions of this note may be electronically transcribed. Please forward a copy of this H&P to the primary care physician. documented in this encounter [facility] 05-20-2023 Emergency department Note Patient placed on NRB while sleeping. SPO2 was dropping while asleep due to mouth breathing. Patient now at 97% Alpa Middleton RN 05/20/23 9056 [facility] 05-20-2023 Emergency department Note [facility] paged Judy Higgins RN 05/20/232234 [facility] 05-20-2023 Emergency department Note Detox full per Dr Jennifer Higgins RN 05/20/232233 [facility] 05-20-2023 Physician Emergency department Note EMERGENCY DEPARTMENT ENCOUNTER Pt Name: Maria De Jesus Hogan Birthdate 1965 Date of evaluation: 05/20/2023 ED Provider: Scooter Luna MD CHIEF COMPLAINT Chief Complaint Patient presents with Alcohol Problem Pt. States he would like to do inpatient detox from alcohol. States he drinks 3-4 tall boys of beer per day. 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 HISTORY OF PRESENT ILLNESS (Location/Symptom, Timing/Onset, Context/Setting, [...] CYST REMOVAL face EGD (HISTORICAL) 07/23/2022 Dr. Estrella-[facility] SMALL INTESTINE SURGERY UPPER GASTROINTESTINAL ENDOSCOPY 09/27/2021 [...] Depression Sister Maria De Jesus Hogan Other ([phone]) Sister Maria De Jesus Hogan agoraphobia Arthritis Sister Maria De Jesus Hogan Cancer Mother Maria De Jesus Hogan colon rectal cancer; dx after age 50 Other ([id number]) Mother Maria De Jesus Hogan alcoholism Alcohol abuse Mother Maria De Jesus Hogan Stroke Mother Maria De Jesus Hogan Other ([phone]) Father Maria De Jesus Hogan h/o rheumatic [...] 0 min Stress: Stress Concern Present (02/09/2023) [place] [employer] - Occupational Stress Questionnaire Feeling of Stress : Very much Social Connections: Moderately Isolated (02/09/2023) Social Connection and Isolation Panel [NHANES] Frequency of Communication with Friends and Family: More than three times a week Frequency of Social Gatherings with Friends and Family: More than three times a week Attends Tenriism Services: Never Active Member of Clubs or [...] Culture. Procedure Abnormality Status --------- ------ Complete Urinalysis[[id number]] Please view results for these tests on [...] Emergency Medicine Provider Scooter Luna MD 05/20/232025 [facility] 04-24-2023 Telephone encounter Note Last OV:12/26/22 Scheduled:n/a [facility] 04-24-2023 Miscellaneous Notes Last OV:12/26/22 Scheduled:n/a documented in this encounter [facility] 03-19-2023 Emergency department Note EMERGENCY DEPARTMENT ENCOUNTER [...] CYST REMOVAL face EGD (HISTORICAL) 07/23/2022 Dr. Estrella-[facility] SMALL INTESTINE SURGERY UPPER GASTROINTESTINAL ENDOSCOPY 09/27/2021 [...] Depression Sister Maria De Jesus Hogan Other ([phone]) Sister Maria De Jesus Hogan agoraphobia Arthritis Sister Maria De Jesus Hogan Cancer Mother Maria De Jesus Hogan colon rectal cancer; dx after age 50 Other ([id number]) Mother Maria De Jesus Hogan alcoholism Alcohol abuse Mother Maria De Jesus Hogan Stroke Mother Maria De Jesus Hogan Other ([id number]) Father Maria De Jesus Hogan h/o rheumatic [...] 0 min Stress: Stress Concern Present (02/09/2023) [place] [employer] - Occupational Stress Questionnaire Feeling of Stress : Very much Social Connections: Moderately Isolated (02/09/2023) Social Connection and Isolation Panel [NHANES] Frequency of Communication with Friends and Family: More than three times a week Frequency of Social Gatherings with Friends and Family: More than three times a week Attends Tenriism Services: Never Active Member of Clubs or [...] PATIENT REFERRED TO: Lynda Rasheed MD [address] [facility] [address] As needed DISCHARGE MEDICATIONS: New Prescriptions No [...] MD 03/19/23 1116 documented in this encounter [facility] 03-19-2023 Physician Emergency department Note EMERGENCY DEPARTMENT [...] CYST REMOVAL face EGD (HISTORICAL) 07/23/2022 Dr. Estrella-[facility] SMALL INTESTINE SURGERY UPPER GASTROINTESTINAL ENDOSCOPY 09/27/2021 [...] Depression Sister Maria De Jesus Hogan Other ([phone]) Sister Maria De Jesus Hogan agoraphobia Arthritis Sister Maria De Jesus Hogan Cancer Mother Maria De Jesus Hogan colon rectal cancer; dx after age 50 Other ([id number]) Mother Maria De Jesus Hogan alcoholism Alcohol abuse Mother Maria De Jesus Hogan Stroke Mother Maria De Jesus Hogan Other ([phone]) Father Maria De Jesus Hogan h/o rheumatic [...] 0 min Stress: Stress Concern Present (02/09/2023) [place] [employer] - Occupational Stress Questionnaire Feeling of Stress : Very much Social Connections: Moderately Isolated (02/09/2023) Social Connection and Isolation Panel [NHANES] Frequency of Communication with Friends and Family: More than three times a week Frequency of Social Gatherings with Friends and Family: More than three times a week Attends Tenriism Services: Never Active Member of Clubs or [...] AM PATIENT REFERRED TO: Lynda Rasheed MD [address] [place] [address] [address] [facility] [address] As needed DISCHARGE MEDICATIONS: New Prescriptions No [...] Medicine Provider Catalino Waddell MD 03/19/23 1116 [facility] 02-18-2023 Hospital Discharge instructions Harjinder Darnell MD - 02/18/2023 7:59 AM EST Follow up with a dentist as soon as possible The following attachments cannot be sent through Care Everywhere.Tooth Abscess ED (Belarusian)documented in this encounter [facility] 02-18-2023 Emergency department Note Pt ambulatory to [...] CYST REMOVAL face EGD (HISTORICAL) 07/23/2022 Dr. Estrella-[facility] SMALL INTESTINE SURGERY UPPER GASTROINTESTINAL ENDOSCOPY 09/27/2021 [...] Depression Sister Maria De Jesus Hogan Other ([id number]) Sister Maria De Jesus Hogan agoraphobia Arthritis Sister Maria De Jesus Hogan Cancer Mother Maria De Jesus Hogan colon rectal cancer; dx after age 50 Other ([phone]) Mother Maria De Jesus Hogan alcoholism Alcohol abuse Mother Maria De Jesus Hogan Stroke Mother Maria De Jesus Hogan Other ([phone]) Father Maria De Jesus Hogan h/o rheumatic [...] 0 min Stress: Stress Concern Present (02/09/2023) [place] [employer] - Occupational Stress Questionnaire Feeling of Stress : Very much Social Connections: Moderately Isolated (02/09/2023) Social Connection and Isolation Panel [NHANES] Frequency of Communication with Friends and Family: More than three times a week Frequency of Social Gatherings with Friends and Family: More than three times a week Attends Tenriism Services: Never Active Member of Clubs or [...] AM PATIENT REFERRED TO: Lynda Rasheed MD [address] [place] [address] [address] [facility] [address] as previously scheduled DISCHARGE MEDICATIONS: New Prescriptions [...] MD 02/18/23 1009 documented in this encounter [facility] 02-18-2023 Emergency department Triage note Pt ambulatory [...] distress noted. +left sided facial swelling noted. [facility] 02-18-2023 Physician Emergency department Note EMERGENCY DEPARTMENT [...] CYST REMOVAL face EGD (HISTORICAL) 07/23/2022 Dr. Estrella-[facility] SMALL INTESTINE SURGERY UPPER GASTROINTESTINAL ENDOSCOPY 09/27/2021 [...] Depression Sister Maria De Jesus Hogan Other ([phone]) Sister Maria De Jesus Hogan agoraphobia Arthritis Sister Maria De Jesus Hogan Cancer Mother Maria De Jesus Hogan colon rectal cancer; dx after age 50 Other ([phone]) Mother Maria De Jesus Hogan alcoholism Alcohol abuse Mother Maria De Jesus Hogan Stroke Mother Maria De Jesus Hogan Other ([phone]) Father Maria De Jesus Hogan h/o rheumatic [...] 0 min Stress: Stress Concern Present (02/09/2023) [place] [employer] - Occupational Stress Questionnaire Feeling of Stress : Very much Social Connections: Moderately Isolated (02/09/2023) Social Connection and Isolation Panel [NHANES] Frequency of Communication with Friends and Family: More than three times a week Frequency of Social Gatherings with Friends and Family: More than three times a week Attends Tenriism Services: Never Active Member of Clubs or [...] AM PATIENT REFERRED TO: Lynda Rasheed MD [address] [place] [address] [address] [facility] [id number] as previously scheduled DISCHARGE MEDICATIONS: New Prescriptions [...] Medicine Provider Harjinder Darnell MD 02/18/23 1009 [facility] 02-17-2023 Hospital Discharge instructions Harjinder Darnell MD - 02/17/2023 9:20 AM EST Follow-up with a dentist as soon as possible The following attachments cannot be sent through Care Everywhere.Dental Pain Discharge Instructions (Belarusian)documented in this encounter [facility] 02-17-2023 Emergency department Note EMERGENCY DEPARTMENT ENCOUNTER [...] CYST REMOVAL face EGD (HISTORICAL) 07/23/2022 Dr. Estrella-[facility] SMALL INTESTINE SURGERY UPPER GASTROINTESTINAL ENDOSCOPY 09/27/2021 [...] Depression Sister Maria De Jesus Hogan Other ([phone]) Sister Maria De Jesus Hogan agoraphobia Arthritis Sister Maria De Jesus Hogan Cancer Mother Maria De Jesus Hogan colon rectal cancer; dx after age 50 Other ([id number]) Mother Maria De Jesus Hogan alcoholism Alcohol abuse Mother Maria De Jesus Hogan Stroke Mother Maria De Jesus Hogan Other ([phone]) Father Maria De Jesus Hogan h/o rheumatic [...] 0 min Stress: Stress Concern Present (02/09/2023) [place] [employer] - Occupational Stress Questionnaire Feeling of Stress : Very much Social Connections: Moderately Isolated (02/09/2023) Social Connection and Isolation Panel [NHANES] Frequency of Communication with Friends and Family: More than three times a week Frequency of Social Gatherings with Friends and Family: More than three times a week Attends Tenriism Services: Never Active Member of Clubs or [...] AM PATIENT REFERRED TO: Lynda Rasheed MD [address] [place] [address] [address] [facility] [address] as previously scheduled DISCHARGE MEDICATIONS: New Prescriptions [...] light within reach. documented in this encounter [facility] 02-17-2023 Emergency department Triage note Patient to room 3 with c/o upper left dental pain that started yesterday. V/S obtained, call light within reach. [facility] 02-17-2023 Physician Emergency department Note EMERGENCY DEPARTMENT [...] withdrawal, with unspecified complication (HCC) 10/02/2019 Alcoholism ([facility]/HCC) (HCC) Anxiety Arthritis Maria De Jesus Cerebral artery occlusion with cerebral infarction (HCC) Cerebrovascular disease Depression GERD (gastroesophageal reflux disease) Maria De Jesus Hypertension Insomnia SURGICAL HISTORY Past Surgical History: Procedure Laterality Date COLONOSCOPY 06/10/2020 EGD/Dr Madison/[facility]AN[facility] CYST REMOVAL face EGD (HISTORICAL) 07/23/2022 Dr. Estrella-[facility] SMALL INTESTINE SURGERY UPPER GASTROINTESTINAL ENDOSCOPY 09/27/2021 [...] Depression Sister Maria De Jesus Hogan Other ([phone]) Sister Maria De Jesus Hogan agoraphobia Arthritis Sister Maria De Jesus Hogan Cancer Mother Maria De Jesus Hogan colon rectal cancer; dx after age 50 Other ([id number]) Mother Maria De Jesus Hogan alcoholism Alcohol abuse Mother Maria De Jesus Hogan Stroke Mother Maria De Jesus Hogan Other ([phone]) Father Maria De Jesus Hogan h/o rheumatic [...] 0 min Stress: Stress Concern Present (02/09/2023) [place] [employer] - Occupational Stress Questionnaire Feeling of Stress : Very much Social Connections: Moderately Isolated (02/09/2023) Social Connection and Isolation Panel [NHANES] Frequency of Communication with Friends and Family: More than three times a week Frequency of Social Gatherings with Friends and Family: More than three times a week Attends Tenriism Services: Never Active Member of Clubs or [...] AM PATIENT REFERRED TO: Lynda Rasheed MD [address] [place] [address] [address] [facility] [address] as previously scheduled DISCHARGE MEDICATIONS: New Prescriptions [...] Medicine Provider Harjinder Darnell MD 02/17/23 1040 [employer] 02-11-2023 Note Formatting of this n ote might be different from the original. CLAIM TECHNICIAN informed the patient called his insurance rather than have his come pick him up from the hospital. Provide a ride picking patient up from hospital and taking them back home [facility] [employer] 02-11-2023 Note Formatting of this n ote might be different from the original. CLAIM TECHNICIAN informed the patient called his insurance rather than have his come pick him up from the hospital. Provide a ride picking patient up from hospital and taking them back home [employer] 02-11-2023 Miscellaneous Notes BENNIE informed the patient called his insurance rather than have his come pick him up from the hospital. Provide a ride picking patient up from hospital and taking them back home CLAIM TECHNICIAN saw patient to discuss aftercare plans and treatment post discharge. Patient declined assistance with aftercare appointments at current time. Patient discussed desire to restart MAT. CLAIM TECHNICIAN noted concerns with MAT Patient's chart encourage patient to discuss this further with medical provider. Patient denied current SI/HI/AVH. Patient reported that their would be picking them up from the hospital and taking them back home. Patient denied needing anything further from [facility] at the time. CLAIM TECHNICIAN informed patient's nurse about conversation. Problem: Sensory [...] IOP and connecting with a PRC from [employer]. Pt was provided with informational brochures on First Step, IOP, PRC, and Vivitrol. documented in this encounter [facility] 02-11-2023 History of Present illness Narrative Denies si/hi. .discussed risk of using any etoh, street drugs, meds not prescribed or as. Discussed increased risk of od or if uses following detox, stated understood. Discussed red book, meetings, tool box with patient, info given. Discussed after care info, was included in discharge instructions. Discussed discharge, stated understood and signed. Insurance company coming to black pickler. He called himself. Discharged from unit at [...] - labs/tests/tasks to review: LFT Recovery plan: CLAIM TECHNICIAN plan for further addiction treatment at undecided JUAN Rothman NP Addiction Medicine 02/10/2023 at 2:54 PM Note: Narrative portions of note written using [employer] dictation software. Efforts are made to dictate clearly and proofread but errors in dictation still may occur. Please reach out to author with any clarifying questions. Nutrition rescreen completed. Chart reviewed. Patient to be monitored and followed by the diet is technician. This nurse to care for patient [...] Pt verbalized understanding. documented in this encounter [facility] 02-11-2023 Hospital Discharge instructions Papito Hood MD - 02/11/2023 11:19 AM EST Images from the original note were not included. [facility] Addiction Medicine Intensive Outpatient Program [place] ([facility]): [phone] [place]: [phone] [place]: [phone] Behavioral Health Intensive Outpatient Program [place] ([facility]): [phone] [place]: [phone] [facility] Step [place] ([facility]): [phone] [place]: [phone] Partial Hospitalization Program [place] ([facility]): [phone] Traumatic Stress Center [place] ([facility]): [phone] Vivitrol Clinic [place] ([facility]): [phone] Alcoholics Anonymous Meetings [email or web address] [facility] [address], [address], [place] [address] documented in this encounter [facility] 02-11-2023 Note Formatting of this n ote might be different from the original. CLAIM TECHNICIAN saw patient to discuss aftercare plans and treatment post discharge. Patient declined assistance with aftercare appointments at current time. Patient discussed desire to restart MAT. CLAIM TECHNICIAN noted concerns with MAT Patient's chart encourage patient to discuss this further with medical provider. Patient denied current SI/HI/AVH. Patient reported that their would be picking them up from the hospital and taking them back home. Patient denied needing anything further from CLAIM TECHNICIAN at the time. CLAIM TECHNICIAN informed patient's nurse about conversation. [facility] 02-11-2023 Note Formatting of this n ote might be different from the original. CLAIM TECHNICIAN saw patient to discuss aftercare plans and treatment post discharge. Patient declined assistance with aftercare appointments at current time. Patient discussed desire to restart MAT. CLAIM TECHNICIAN noted concerns with MAT Patient's chart encourage patient to discuss this further with medical provider. Patient denied current SI/HI/AVH. Patient reported that their would be picking them up from the hospital and taking them back home. Patient denied needing anything further from CLAIM TECHNICIAN at the time. CLAIM TECHNICIAN informed patient's nurse about conversation. [facility] 02-10-2023 Nurse Note Patient up and visible [...] far. Will continue to monitor for safety. [facility] 02-10-2023 Nurse Note Patient up and visible [...] administered for sleep. documented in this encounter [facility] 02-09-2023 Nurse Note Patient seclusive to room this shift. Patient compliant with medications and treatment offered. Patient denies SI/HI/AVH thus far. Patient appetite, hygiene, and sleep adequate. Patient independent with ADLs and ambulation. Patient encouraged to approach staff with any concerns or needs. Will continue to monitor for safety. [facility] 02-09-2023 History and physical note Addiction Medicine [facility] Detox Unit H&P Patient: Maria De [...] He has a history of IOP at [facility] in [place]. He has a history of a psychiatric [...] 0 min Stress: Stress Concern Present (02/09/2023) [place] [employer] - Occupational Stress Questionnaire Feeling of Stress : Very much Social Connections: Moderately Isolated (02/09/2023) Social Connection and Isolation Panel [NHANES] Frequency of Communication with Friends and Family: More than three times a week Frequency of Social Gatherings with Friends and Family: More than three times a week Attends Tenriism Services: Never Active Member of Clubs or [...] CYST REMOVAL face EGD (HISTORICAL) 07/23/2022 Dr. Estrella-[facility] SMALL INTESTINE SURGERY UPPER GASTROINTESTINAL ENDOSCOPY 09/27/2021 normal WISDOM TOOTH EXTRACTION Family History Problem Relation Name Age of Onset Depression Sister Maria De Jesus Hogan Other ([id number]) Sister Maria De Jesus Hogan agoraphobia Arthritis Sister Maria De Jesus Hogan Cancer Mother Maria De Jesus Hogan colon rectal cancer; dx after age 50 Other ([id number]) Mother Maria De Jesus Hogan alcoholism Alcohol abuse Mother Maria De Jesus Hogan Stroke Mother Maria De Jesus Hogan Other ([id number]) Father Maria De Jesus Hogan h/o rheumatic [...] participate in all unit activities. Recovery plan: CLAIM TECHNICIAN to assist with aftercare treatment options as patient stabilizes Tiki Ponce APRN - 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 Addiction Medicine 02/09/2023 at 3:21 PM Note: Narrative portions of note written using [employer] dictation software. Efforts are made to dictate clearly and proofread but errors in dictation still may occur. Please reach out to author with any clarifying questions. Associated attestation - Jonatan Mckeon MD - 02/10/2023 10:18 AM EST I have reviewed the documented history, ROS, physical exam, and decision making and agree. [facility] 02-09-2023 History and physical note Addiction [facility] Detox Unit H&P Patient: Maria De [...] stroke, HTN, CAD, chronic cough, fatty liver, Lomabrdo's esophagus and a severe alcohol use disorder. [...] He has a history of IOP at [facility] in [place]. He has a history of a psychiatric [...] Inpatient Rehab: denies [x] Chem Dep IOP: [facility] [x] Detoxifications: numerous. [x] 12 Step Meetings: [...] 0 min Stress: Stress Concern Present (02/09/2023) [employer] [place] [employer] - Occupational Stress Questionnaire Feeling of Stress : Very much Social Connections: Moderately Isolated (02/09/2023) Social Connection and Isolation Panel [NHANES] Frequency of Communication with Friends and Family: More than three times a week Frequency of Social Gatherings with Friends and Family: More than three times a week Attends Tenriism Services: Never Active Member of Clubs or [...] CYST REMOVAL face EGD (HISTORICAL) 07/23/2022 Dr. Estrella-[facility] SMALL INTESTINE SURGERY UPPER GASTROINTESTINAL ENDOSCOPY 09/27/2021 normal WISDOM TOOTH EXTRACTION Family History Problem Relation Name Age of Onset Depression Sister Maria De Jesus Hogan Other ([id number]) Sister Maria De Jesus Hogan agoraphobia Arthritis Sister Maria De Jesus Hogan Cancer Mother Maria De Jesus Hogan colon rectal cancer; dx after age 50 Other ([id number]) Mother Maria De Jesus Hogan alcoholism Alcohol abuse Mother Maria De Jesus Hogan Stroke Mother Maria De Jesus Hogan Other ([id number]) Father Maria De Jesus Hogan h/o rheumatic [...] participate in all unit activities. Recovery plan: CLAIM TECHNICIAN to assist with aftercare treatment options as patient stabilizes Tiki Ponce APRN - JUSTEN Addiction Medicine 02/09/2023 at 3:21 PM Note: Narrative portions of note written using [employer] dictation software. Efforts are made to dictate clearly and proofread but errors in dictation still may occur. Please reach out to author with any clarifying questions. Associated attestation - Jonatan Mckeon MD - 02/10/2023 10:18 AM EST I have reviewed the documented history, ROS, physical exam, and decision making and agree. documented in this encounter [facility] 02-09-2023 Plan of care note Problem: Sensory Perceptual Alteration as Evidenced by Goal: Understands least restrictive measures Outcome: Progressing Goal: Free from restraint events Outcome: Progressing Problem: Ineffective Coping Goal: Identifies healthy coping skills Outcome: Progressing Problem: Potential for Substance Withdrawal Goal: Verbalizes signs/symptoms of withdrawal Outcome: Progressing Goal: Reports signs/symptoms of withdrawal Outcome: Progressing [facility] 02-09-2023 Nurse Note Patient arrived to unit via stretcher escorted by protective services and EMT's. Patient Ambulated from stretcher at nursing station to room 413 independently. Gait steady. A & O x 4. No complaints of pain. Patient signed in. Oriented to unit and room. Patient called from unit phone. PRN trazodone 100 mg PO administered for sleep. [facility] 02-08-2023 Emergency department Note Spoke with 4E about patient departure and provider notification. Kassie Vargas RN 02/08/232302 [facility] 02-08-2023 Emergency department Note Spoke with 4E about patient departure and provider notification. Kassie Vargas RN 02/08/232302 Protective services at bedside for wanding. Kassie Vargas RN 02/08/23 9573 [facility] arrived. Kassie Vargas RN 02/08/232246 [...] patch (1 patch TransDERmal Medication Applied 02/08/23 7604) Followed by nicotine (Nicoderm, Step 2) 14 [...] Kothari MD 02/08/231827 documented in this encounter [facility] 02-08-2023 Emergency department Note Protective services at bedside for wanding. Kassie Vargas RN 02/08/232247 [facility] 02-08-2023 Emergency department Note [facility] arrived. Kassie Vargas RN 02/08/232246 [facility] 02-08-2023 Emergency department Note Protective services at bedside to do belongings check and wanding. Patient still has procession of pillow and cellular device. Patient verbalized understanding of phone and pillow will be secured before departure of unit. Kassie Vargas RN 02/08/232035 [facility] 02-08-2023 Emergency department Note Patient ambulatory to the restroom with steady gait. Kassie Vargas RN 02/08/232033 [facility] 02-08-2023 Emergency department Note Snack and beverage provided to patient. Kassie Vargas RN 02/08/232016 [facility] 02-08-2023 Emergency department Note Report called to 4E Jen Nunez RN 02/08/231935 [facility] 02-08-2023 Note Formatting of this n [...] IOP and connecting with a PRC from [facility]. Pt was provided with informational brochures on [facility], IOP, PRC, and Vivitrol. [facility] 02-08-2023 Note Formatting of this n [...] IOP and connecting with a PRC from [facility]. Pt was provided with informational brochures on [facility], IOP, PRC, and Vivitrol. [facility] 02-08-2023 Note NOTE: This result is for medical treatment only. Analysis performed using non-forensic procedures. [facility] 02-08-2023 Physician Emergency department Note Emergency Department [...] Emergency Medicine Anusha Kothari MD 02/08/23 1828 [facility] [employer] Work Phone: 01-28-2023 Telephone encounter Note Last OV:12/26/22 Scheduled:04/03/23 [facility] 01-28-2023 Miscellaneous Notes Last OV:12/26/22 Scheduled:04/03/23 documented in this encounter [facility] 12-26-2022 History of Present illness Narrative Images from the original note were not included. [facility] [address] [place] [address] [address] [facility] [address] Dept: [phone] Dept Loc: [phone] Reason for Visit: Follow-up Assessment and Plan 1. Screening for colon cancer - [facility] General Surgery - Sotero Madsen MD 2. 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 He is to continue Protonix. 3. Psoriasiform seborrheic dermatitis is a chronic stable issue continue Dovonex. 4. Alcohol use disorder, severe (HCC) patient [facility]. He [...] currently doing well in this aspect. [facility]. Currently on thiamine multivitamin as [...] CYST REMOVAL face EGD (HISTORICAL) 07/23/2022 Dr. Estrella[facility] SMALL INTESTINE SURGERY UPPER GASTROINTESTINAL ENDOSCOPY 09/27/2021 normal WISDOM TOOTH EXTRACTION Family History Problem Relation Name Age of Onset Depression Sister Maria De Jesus Hogan Other ([id number]) Sister Maria De Jesus Hogan agoraphobia Arthritis Sister Maria De Jesus Hogan Cancer Mother Maria De Jesus Hogan colon rectal cancer; dx after age 50 Other ([id number]) Mother Maria De Jesus Hogan alcoholism Alcohol abuse Mother Maria De Jesus Hogan Stroke Mother Maria De Jesus Hogan Other ([id number]) Father Maria De Jesus Hogan h/o rheumatic [...] Katrina Rasheed MD documented in this encounter [facility] 12-10-2022 Telephone encounter Note Last OV:6.27.23 Scheduled:12/26/22 [facility] 12-10-2022 Miscellaneous Notes Last OV:6.27.23 Scheduled:12/26/22 documented in this encounter [facility] 10-09-2022 Miscellaneous Notes Addended by: PAPITO HOOD on: 10/09/2022 10:00 AM Modules accepted: Orders documented in this encounter [facility] 10-09-2022 Note Addended by: PAPITO CHONG on: 10/09/2022 10:00 AM Modules accepted: Orders [facility] 10-09-2022 Note Addended by: PAPITO CHONG on: 10/09/2022 10:00 AM Modules accepted: Orders [facility] 10-01-2022 Telephone encounter Note 1. CMP indicates sugar is elevated. I recommend an A1c order for this in the chart #2 patient's blood counts are normal but his MCV value which is the shape of a blood cell is abnormal I would like to go ahead and order a B12 and iron. This is also in the chart [facility] 10-01-2022 Miscellaneous Notes 1. CMP indicates sugar is elevated. I recommend an A1c order for this in the chart #2 patient's blood counts are normal but his MCV value which is the shape of a blood cell is abnormal I would like to go ahead and order a B12 and iron. This is also in the chart documented in this encounter [facility] 09-25-2022 History of Present illness Narrative Images from the original note were not included. [facility] [address] [facility] [address] Dept: [phone] Dept Loc: [phone] Reason for Visit: Follow-up (8 week, pt [...] 3. Psoriasis patient also to follow-up with medical laboratory specialist - calcipotriene (Dovonex) 0.005 % cream; Apply topically 2 times daily., Starting Sat09/25/2022, Normal 4. Screening for colon cancer - [facility] General Surgery - Sotero Madsen MD 5 alcohol usage. Patient currently was in detox for 5 days. He states that he is doing much better he is on Vivitrol he has an upcoming appointment with the [facility] psychiatry detox. We will continue to follow-up [...] problems recently he was at detox at [facility]. He states he has not been [...] CYST REMOVAL face EGD (HISTORICAL) 07/23/2022 Dr. Estrella-[facility] SMALL INTESTINE SURGERY UPPER GASTROINTESTINAL ENDOSCOPY 09/27/2021 normal WISDOM TOOTH EXTRACTION Family History Problem Relation Name Age of Onset Depression Sister Maria De Jesus Hogan Other ([id number]) Sister Maria De Jesus Hogan agoraphobia Arthritis Sister Maria De Jesus Hogan Cancer Mother Maria De Jesus Hogan colon rectal cancer; dx after age 50 Other ([id number]) Mother Maria De Jesus Hogan alcoholism Alcohol abuse Mother Maria De Jesus Hogan Stroke Mother Maria De Jesus Hogan Other ([id number]) Father Maria De Jesus Hogan h/o rheumatic [...] Katrina Rasheed MD documented in this encounter [facility] 09-24-2022 Telephone encounter Note Last seen:08/01/22 Scheduled:09/25/22 [facility] 09-24-2022 Miscellaneous Notes Last seen:08/01/22 Scheduled:09/25/22 documented in this encounter [facility] 09-18-2022 Telephone encounter Note Last seen:08/01/22 Scheduled:09/25/22 [facility] 09-18-2022 Miscellaneous Notes Last seen:08/01/22 Scheduled:09/25/22 documented in this encounter [facility] 09-14-2022 History of Present illness Narrative Patient [...] discharge order. Scheduled for OUTPT assessment at [facility] on September 19; [facility] will schedule leny't [...] - labs/tests/tasks to review: none Recovery plan: CLAIM TECHNICIAN plan for further addiction treatment at [facility] and MAT with JUAN Warner NP Addiction Medicine 09/13/2022 at 12:52 PM Note: Narrative portions of note written using [employer] dictation software. Efforts are made to dictate [...] Recommendations/Plan: Will assign level 1 referring to dietary server to monitor. Malnutrition Assessment: Malnutrition Status: No [...] loss Fluid Accumulation: No significant fluid accumulation Enterprise Systems Administrator Strength: Not Performed Nutrition Assessment: Per chart: 09/11: said he didn't tolerate po, 09/12 100% of bfst. consumed. 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 for the last 2 weeks, consumed 100% of Lunch, declines supplemental foods Estimated Daily Nutrient Needs: Energy Requirements Based On: Kcal/kg Weight Used for Energy Requirements: [place] Weight for Energy Calculation (kg): 75 kg Total Energy Requirements (kcals/day): 1875 - 2250 kcals Weight Used for Protein Requirements: [place] Weight in Kg Used for Protein Requirements: 75 kg Estimated Total Protein (g/day): 60 - 75 gms protein Estimated Daily Total Fluid (ml/day): 1875 - 2250 mls Nutrition Related Findings: weight loss WOOD MACHINE CARVER, ETOH abuse Wound Type: None Current Nutrition Therapies: Adult diet Regular Current Oral Intake Average Meal Intake: 76-100% Average Supplements Intake: None Ordered Additional Calorie Sources Additional Calorie Sources: WOOD MACHINE CARVER 7 - 9 tall beers/day Anthropometric Measures: Height: 177.8 cm (5' 10) Current Body Weight: 90.7 kg (200 lb) Weight Source: Not Specified Admission Body Weight: 90.7 kg (200 lb) Usual Body Weight: 95.3 kg (210 lb) ([facility] 06/07/21) % Weight Change (Calculated): -4.8 [place] Body Weight (lbs) (Calculated): 166 lbs [place] Body Weight (Kg) (Calculated): 75 kg % [place] Body Weight (Calculated): 120.5 % BMI (kg/m2) [...] Care (will assign level 1 referring to dietary server to monitor) Plan of Care discussed with: pt. Goals: Goals: PO intake 75% or greater Nutrition Monitoring and Evaluation: Behavioral-Environmental Outcomes: None Identified Food/Nutrient Intake Outcomes: None Identified Physical Signs/Symptoms Outcomes: Hemodynamic Status, GI Status, Weight, Nutrition Focused Physical Findings, Meal Time Behavior, Skin, Fluid Status or Edema Discharge Planning: Assist with food insecurity, Continue current diet Mogjan Blum RD Contact: via [employer] chat or office *[phone] Addiction Unit Progress Note SatSeptember 12, 2022 [...] assistance when ambulating. Pt arrived to from [facility] ED at 1939 via wheelchair. Skin [...] continue to monitor. documented in this encounter [facility] 09-14-2022 Note Formatting of this n ote might be different from the original. CLAIM TECHNICIAN saw patient to discuss aftercare plans and [...] home. Patient denied needing anything further from [facility] at the time. CLAIM TECHNICIAN informed patient's nurse about conversation. [facility] 09-14-2022 Note Formatting of this n ote might be different from the original. CLAIM TECHNICIAN saw patient to discuss aftercare plans and [...] home. Patient denied needing anything further from [facility] at the time. CLAIM TECHNICIAN informed patient's nurse about conversation. [facility] 09-14-2022 Miscellaneous Notes CLAIM TECHNICIAN saw patient to discuss aftercare plans and [...] home. Patient denied needing anything further from CLAIM TECHNICIAN at the time. CLAIM TECHNICIAN informed patient's nurse about conversation. Department: [facility] ACTIVITIES THERAPY Group Topic: Mindfulness Group [...] Jesus Hogan Date of : 1965 MR: [id number] Mental Status Exam: Appearance: Appropriately dressed and [...] complication (HCC) Continue to have good appetite CLAIM TECHNICIAN being interested in [facility] aftercare program. CLAIM TECHNICIAN offered to call and schedule patient's intake appointment and patient was agreeable. Patient is also agreeable to Vivitrol injections previous to leaving the unit as well as following up with MAT services. CLAIM TECHNICIAN schedule patient intake assessment include all information on patient's discharge plans. CLAIM TECHNICIAN will continue to follow-up as necessary. Problem: [...] He has previous history of engagement with [facility] for outpatient mental health treatment. Patient has [...] as an adult. Patient denies any history [place] or status. Family Constellation/Childhood History: Patient reports that he is currently to his living in [facility]. Patient reports that he has 3 biological children and 4 stepchildren. Patient reports that his father in his 11 years old. Patient did not report his mother is still alive currently. Patient was born and raised in [place], [place] by his mother and father. 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 Patient denies SSI/SSD. Cultural/Spirituality/Leisure: Patient denies any cultural needs or concerns at the current time. Patient denies identify any presybeterian preference. It is unknown if patient is [...] like. Patient is open to working with CLAIM TECHNICIAN to identify an aftercare plan. Patient is encouraged to engage in all activities that are offered to him while he is on the unit. Patient not report anything additional at current time. Patient encouraged to seek out unit staff or CLAIM TECHNICIAN should he identify any additional needs or [...] provider for clarification. documented in this encounter [facility] 09-13-2022 Group counseling note Department: [facility] ACTIVITIES THERAPY Group Topic: Mindfulness Group [...] Jesus Hogan Date of : 1965 MR: [id number] Mental Status Exam: Appearance: Appropriately dressed and [...] disorder Alcohol withdrawal syndrome without complication (HCC) [facility] 09-12-2022 Plan of care note Continue to have good appetite T [facility] 09-12-2022 Note Formatting of this n ote might be different from the original. CLAIM TECHNICIAN being interested in [facility] for aftercare program. CLAIM TECHNICIAN offered to call and schedule patient's intake appointment and patient was agreeable. Patient is also agreeable to Vivitrol injections previous to leaving the unit as well as following up with MAT services. CLAIM TECHNICIAN schedule patient intake assessment include all information on patient's discharge plans. CLAIM TECHNICIAN will continue to follow-up as necessary. [facility] 09-12-2022 Note Formatting of this n ote might be different from the original. CLAIM TECHNICIAN being interested in [facility] aftercare program. CLAIM TECHNICIAN offered to call and schedule patient's intake appointment and patient was agreeable. Patient is also agreeable to Vivitrol injections previous to leaving the unit as well as following up with MAT services. CLAIM TECHNICIAN schedule patient intake assessment include all information on patient's discharge plans. CLAIM TECHNICIAN will continue to follow-up as necessary. [facility] 09-12-2022 Nurse Note Pt cooperative with nursing care and med compliant. Withdrawn to room in bed. Bed alarm in place, urinal at bedside. Denies SI/HI/AVH. Pt tremors have improved but still very tremulous. Pt encouraged to make needs known to staff. Call light within reach. Pt slept throughout the night. Safety checks maintained. [facility] 09-12-2022 Nurse Note Pt cooperative with nursing care and med compliant. Withdrawn to room in bed. Bed alarm in place, urinal at bedside. Denies SI/HI/AVH. Pt tremors have improved but still very tremulous. Pt encouraged to make needs known to staff. Call light within reach. Pt slept throughout the night. Safety checks maintained. 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 PMH: psoriasis, [...] He has a history of IOP at [facility] in [place]. 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 PMH: psoriasis, [...] He has a history of IOP at [facility] in [place]. He has a history of a psychiatric [...] Dependence with Withdrawal complicated by multiple comorbidities Artruo clearly suffers with recidivistic chronic alcoholism; he's [...] Edmond APRN DNP documented in this encounter [facility] 09-11-2022 Hospital Discharge instructions BENNIE Solis - [...] National Suicide Prevention Hotline if needed at: 3-677-366-UFFY (0091) Please call the following number should you have questions regarding your discharge or aftercare appointments: [facility] documented in this encounter [facility] 09-11-2022 Note Formatting of this n ote [...] He has previous history of engagement with [facility] in [place] for outpatient mental health treatment. Patient has [...] as an adult. Patient denies any history [place] or status. Family Constellation/Childhood History: Patient reports that he is currently to his living in [facility]. Patient reports that he has 3 biological children and 4 stepchildren. Patient reports that his father in his 9 years old. Patient did not report his mother is still alive currently. Patient was born and raised in [place], [place] by his mother and father. 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 Patient denies SSI/SSD. Cultural/Spirituality/Leisure: Patient denies any cultural needs or concerns at the current time. Patient denies identify any presybeterian preference. It is unknown if patient is [...] like. Patient is open to working with CLAIM TECHNICIAN to identify an aftercare plan. Patient is encouraged to engage in all activities that are offered to him while he is on the unit. Patient not report anything additional at current time. Patient encouraged to seek out unit staff or CLAIM TECHNICIAN should he identify any additional needs or concerns. Comment: Please note this report has been produced using speech recognition software and may contain errors related to that system including errors in grammar, punctuation, and spelling, as well as words and phrases that may be inappropriate. If there are any questions or concerns please feel free to contact the dictating provider for clarification. [facility] 09-11-2022 Note Formatting of this n ote [...] He has previous history of engagement with [facility] in [place] for outpatient mental health treatment. Patient has [...] as an adult. Patient denies any history [place] or status. Family Constellation/Childhood History: Patient reports that he is currently to his living in [facility]. Patient reports that he has 3 biological children and 4 stepchildren. Patient reports that his father in his 11 years old. Patient did not report his mother is still alive currently. Patient was born and raised in [place], [place] by his mother and father. 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 Patient denies SSI/SSD. Cultural/Spirituality/Leisure: Patient denies any cultural needs or concerns at the current time. Patient denies identify any presybeterian preference. It is unknown if patient is [...] like. Patient is open to working with CLAIM TECHNICIAN to identify an aftercare plan. Patient is encouraged to engage in all activities that are offered to him while he is on the unit. Patient not report anything additional at current time. Patient encouraged to seek out unit staff or CLAIM TECHNICIAN should he identify any additional needs or concerns. Comment: Please note this report has been produced using speech recognition software and may contain errors related to that system including errors in grammar, punctuation, and spelling, as well as words and phrases that may be inappropriate. If there are any questions or concerns please feel free to contact the dictating provider for clarification. [facility] 09-10-2022 Emergency department Note Patient went to floor at shift change prior to this RN being able to see patient. Patient to floor with protective services and transport with belongings and papers. Report was completed by Preslie, RN prior to this nurse shift. Kristina Barajas RN 09/10/221940 [facility] 09-10-2022 Emergency department Note Patient went to floor at shift change prior to this RN being able to see patient. Patient to floor with protective services and transport with belongings and papers. Report was completed by JAY Pete prior to this nurse shift. Kristina Barajas RN 09/10/221940 Report to Kristina THOMPSON. Juan R Garcia RN 09/10/221928 Report to Beena Valadez RN. Juan R Garcia RN 09/10/22 183 Belonging check performed via protective services. 1 personal belonging bag. Pt wanded and placed into inpatient gown. Gripper socks provided. Bagged lunch provided. Contract signed. Juan R Garcia RN 09/10/22 4801 Pt remains asleep at this time in no acute distress. Juan R Garcia RN 09/10/[address] Abraham, no phenobarbital at this time. Juan R Garcia RN 09/10/22 1419 Pt desatting upon falling asleep. Pt placed on 4L O2 at this time. Juan R Garcia RN 09/10/[address] Juan R Garcia RN 09/10/22 1424 [facility] EMERGENCY DEPT EMERGENCY DEPARTMENT ENCOUNTER Pt [...] CYST REMOVAL face EGD (HISTORICAL) 07/23/2022 Dr. Estrella-[facility] UPPER GASTROINTESTINAL ENDOSCOPY 09/27/2021 normal WISDOM TOOTH [...] rectal cancer; dx after age 50 Other (19136) Mother alcoholism Other (31070) Father h/o rheumatic fever, cardiac arrest due to bee sting Other (03934) Sister agoraphobia SOCIAL HISTORY Social History Socioeconomic [...] In compliance with this authorization, please visit www.fda.gov/media/453308/download or www.fda.gov/media/309002/download to access the applicable information sheets. CK [...] Triston Abraham MD PATRICIA Emergency Medicine Physician [facility] Triston Abraham MD 09/10/22 1611 documented in this encounter [facility] 09-10-2022 Emergency department Note Report to Kristina THOMPSON. Juan R Garcia RN 09/10/22 1929 [facility] 09-10-2022 Emergency department Note Report to Beena Valadez RN. Juan R Garcia RN 09/10/22 1835 [facility] 09-10-2022 Emergency department Note Belonging check performed via protective services. 1 personal belonging bag. Pt wanded and placed into inpatient gown. Gripper socks provided. Bagged lunch provided. Contract signed. Juan R Garcia RN 09/10/22 9842 [facility] 09-10-2022 Emergency department Note Pt remains asleep at this time in no acute distress. Juan R Garcia RN 09/10/22 1658 [facility] 09-10-2022 Emergency department Note Per Dr. Abraham, no phenobarbital at this time. Juan R Garcia RN 09/10/22 1609 [facility] 09-10-2022 Emergency department Note Pt desatting upon falling asleep. Pt placed on 4L O2 at this time. Juan R aGrcia RN 09/10/22 1551 [facility] 09-10-2022 Emergency department Note Pt returned from CT. Juan R Garcia RN 09/10/22 1424 [facility] 09-10-2022 Physician Emergency department Note [facility] EMERGENCY DEPT EMERGENCY DEPARTMENT ENCOUNTER Pt [...] CYST REMOVAL face EGD (HISTORICAL) 07/23/2022 Dr. Estrella-[facility] UPPER GASTROINTESTINAL ENDOSCOPY 09/27/2021 normal WISDOM TOOTH [...] rectal cancer; dx after age 50 Other (52699) Mother alcoholism Other (83838) Father h/o rheumatic fever, cardiac arrest due to bee sting Other (06813) Sister agoraphobia SOCIAL HISTORY Social History Socioeconomic [...] In compliance with this authorization, please visit www.fda.gov/media/436450/download or www.fda.gov/media/482135/download to access the applicable information sheets. CK [...] Triston Abraham MD PATRICIA Emergency Medicine Physician [facility] Triston Abraham MD 09/10/22 1611 [facility] 08-01-2022 History of Present illness Narrative Images from the original note were not included. [facility] [address] [facility] [address] Dept: [phone] Dept Loc: [phone] Reason for Visit: Follow-up (Discuss results and [...] with dysplasia started patient on Protonix - [facility] Gastroenterology 6. Screening for colon cancer - [facility] Gastroenterology 7. ED (erectile dysfunction) of non-organic origin - [facility] Urology current treatment plan is effective, no [...] meetings [facility] offered [facility] patient is agreeable to this. [...] CYST REMOVAL face EGD (HISTORICAL) 07/23/2022 Dr. Estrella-[facility] UPPER GASTROINTESTINAL ENDOSCOPY 09/27/2021 normal WISDOM TOOTH EXTRACTION Family History Problem Relation Name Age of Onset Depression Sister Cancer Mother colon rectal cancer; dx after age 50 Other (20212) Mother alcoholism Other (36815) Father h/o rheumatic fever, cardiac arrest due to bee sting Other (81195) Sister agoraphobia Health Maintenance Topic Date Due [...] steatosis. Sigmoid diverticulosis. 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 Also reports BRB [...] CYST REMOVAL face EGD (HISTORICAL) 07/23/2022 Dr. Estrella-[facility] UPPER GASTROINTESTINAL ENDOSCOPY 09/27/2021 normal WISDOM TOOTH EXTRACTION Family History Problem Relation Name Age of Onset Depression Sister Cancer Mother colon rectal cancer; dx after age 50 Other (93875) Mother alcoholism Other (36241) Father h/o rheumatic fever, cardiac arrest due to bee sting Other (51053) Sister agoraphobia Social History Socioeconomic History Marital [...] 372 ms QTC Interval 468 ms P [place] 50 degrees QRS [place] 44 degrees T Wave [place] 50 degrees [place] Interval 188 ms CBC Collection Time: 07/22/22 [...] ODT OR ondansetron, polyethylene glycol (PEG) 3350 @[id number]@ Plan 1. 1. Alcohol use disorder severe [...] that he is going to go to [facility] and they going to detox him there [...] evaluating detoxification medications, and discussing treatment plan. 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 Also reports BRB in his vomit. Substance dependence disorder History of Present Illness Maria De Jseus Hogan is a 56 y.o. year old [...] CYST REMOVAL face EGD (HISTORICAL) 07/23/2022 Dr. Estrella-[facility] UPPER GASTROINTESTINAL ENDOSCOPY 09/27/2021 normal WISDOM TOOTH EXTRACTION Family History Problem Relation Name Age of Onset Depression Sister Cancer Mother colon rectal cancer; dx after age 50 Other (43469) Mother alcoholism Other (52985) Father h/o rheumatic fever, cardiac arrest due to bee sting Other (90946) Sister agoraphobia Social History Socioeconomic History Marital [...] 372 ms QTC Interval 468 ms P [place] 50 degrees QRS [place] 44 degrees T Wave [place] 50 degrees [place] Interval 188 ms CBC Collection Time: 07/22/22 [...] ODT OR ondansetron, polyethylene glycol (PEG) 3350 @[id number]@ Plan 1. 1. Alcohol use disorder severe [...] [facility] going to [facility] him there [...] rectal cancer; dx after age 50 Other (20106) Mother alcoholism Other (91920) Father h/o rheumatic fever, cardiac arrest due to bee sting Other (14094) Sister agoraphobia MEDICATIONS PRIOR TO ADMISSION: Current [...] 07/22/2022 10:49 AM documented in this encounter [facility] 07-23-2022 Hospital course Narrative Discharge Summary Maria [...] AMA Follow up with Lynda Rasheed MD [address] [place] [address] INSTRUCTIONS TO MA/SW: Please call patient on [...] 07/23/2022, 12:20 PM documented in this encounter [facility] 07-23-2022 History of Present illness Narrative Patient [...] were not included. Hospitalist Progress Note 07/22/2022 [phone]: Please secure chat me for patient care issues. [phone]: Please secure chat [facility] night Hospitalist for any issues. Subjective: Admit [...] advance the diet. Adult diet Full liquid @[id number]@ 24HR INTAKE/OUTPUT: Intake/Output Summary (Last 24 hours) [...] Extended Emergency Contact Information Primary Emergency Contact: O'Brien Relation: Spouse Redd Teixeira MD Division of Hospitalist Medicine [facility] PAGER: Epic chat AAOX3, responds appropriately but vague. Requesting liquids, pt taking sips with meds, no apparent swallowing deficit or dysphagia noted. Will cont to monitor. documented in this encounter [facility] 07-23-2022 Note Formatting of this n ote might be different from the original. POST ENDOSCOPY PROCEDURE TRANSFER REPORT Procedure completed: egd Findings:see op note Specimens obtained: no Medications administered: see emar Additional Info: see emar For additional Questions please call Endoscopy at [phone]. Thank You! [facility] 07-23-2022 Miscellaneous Notes POST ENDOSCOPY PROCEDURE TRANSFER REPORT Procedure completed: egd Findings:see op note Specimens obtained: no Medications administered: see emar Additional Info: see emar For additional Questions please call Endoscopy at [phone]. Thank You! [facility] Name: Maria De Jesus Hogan Procedure Date: 07/23/2022 9:24 AM Gender: Male Date of : 1965 Age: 56 Admit Type: Inpatient Note Status: Finalized Endoscopist: Jose Estrella DO, [id number] Procedure: Upper GI endoscopy Indications: Hematemesis Findings: [...] immediate complications. Procedure Code(s): --- Professional --- 16365, Esophagogastroduodenoscopy, flexible, transoral; diagnostic, including collection of specimen(s) by brushing or washing, when performed (separate procedure) --- Technical --- 74723, Esophagogastroduodenoscopy, flexible, transoral; diagnostic, including collection of specimen(s) by brushing or washing, when performed (separate procedure) Diagnosis Code(s): --- Professional --- K22.70, Lombardo's esophagus without dysplasia K44.9, Diaphragmatic hernia without obstruction or gangrene K92.0, Hematemesis --- Technical --- K22.70, Lombardo's esophagus without dysplasia K44.9, Diaphragmatic hernia without obstruction or gangrene K92.0, Hematemesis CPT copyright 2021 [employer]. All rights reserved. The codes documented in this report are preliminary and upon mounter review may be revised to meet current compliance requirements. Attending Participation: I personally performed the entire procedure. Jose Estrella DO 07/23/2022 9:53:58 AM This report has been signed electronically. Number of Addenda: 0 Note Initiated On: 07/23/2022 9:24 AM Care Managment Initial Assessment Date: 07/22/2022 Patient Name: Maria De Jesus Hogan : 1965 Patient Information Source of Information: Patient, Patient Farm Loan Inspector Name/Contact Information: JUDY SAMIRA [phone] SPOUSE Cognition/Language: WFL - Within Functional Limits Permission given to speak with patient surgical sales representative/caregiver as indicated: Yes Confirmation of Payer with patient/family: Yes Payer Name: [place] [employer] [place]: No Confirmation of Primary Care Physician: Confirmed [...] spouse when medically stable. Will update social work faculty member to provide with community resources. Tentative discharge plan is home with family when medically stable. Keila Yo RN Problem: Pain - Adult Goal: Verbalizes/displays adequate comfort level or baseline comfort level Outcome: Progressing Problem: Safety - Adult Goal: Free from fall injury Outcome: Progressing documented in this encounter [facility] 07-23-2022 Note Formatting of this n ote might be different from the original. [facility] Patient Name: Maria De Jesus Hogan Procedure Date: 07/23/2022 9:24 AM Gender: Male Date of : 1965 Age: 56 Admit Type: Inpatient Note Status: Finalized Endoscopist: Jose Estrella DO, [id number] Procedure: Upper GI endoscopy Indications: Hematemesis Findings: [...] immediate complications. Procedure Code(s): --- Professional --- 36867, Esophagogastroduodenoscopy, flexible, transoral; diagnostic, including collection of specimen(s) by brushing or washing, when performed (separate procedure) --- Technical --- 35050, Esophagogastroduodenoscopy, flexible, transoral; diagnostic, including collection of specimen(s) by brushing or washing, when performed (separate procedure) Diagnosis Code(s): --- Professional --- K22.70, Lombardo's esophagus without dysplasia K44.9, Diaphragmatic hernia without obstruction or gangrene K92.0, Hematemesis --- Technical --- K22.70, Lombardo's esophagus without dysplasia K44.9, Diaphragmatic hernia without obstruction or gangrene K92.0, Hematemesis CPT copyright 2021 [employer]. All rights reserved. The codes documented in this report are preliminary and upon mounter review may be revised to meet current compliance requirements. Attending Participation: I personally performed the entire procedure. Jose Estrella DO 07/23/2022 9:53:58 AM This report has been signed electronically. Number of Addenda: 0 Note Initiated On: 07/23/2022 9:24 AM [facility] 07-23-2022 Note Addended by: LYNDA COTA on: 07/23/2022 08:57 AM Modules accepted: Orders [facility] 07-23-2022 Note Addended by: LYNDA COTA on: 07/23/2022 08:57 AM Modules accepted: Orders [facility] 07-23-2022 Telephone encounter Note sent [facility] 07-23-2022 Miscellaneous Notes Addended by: LYNDA RASHEED [...] to send in. documented in this encounter [facility] 07-22-2022 Note Formatting of this n ote might be different from the original. Care Managment Initial Assessment Date: 07/22/2022 Patient Name: Maria De Jesus Hogan : 1965 Patient Information Source of Information: Patient, Patient Farm Loan Inspector Name/Contact Information: JUDY HOGAN [phone] SPOUSE Cognition/Language: WFL - Within Functional Limits Permission given to speak with patient surgical sales representative/caregiver as indicated: Yes Confirmation of Payer with patient/family: Yes Payer Name: [place] [employer]: No Confirmation of Primary Care Physician: Confirmed [...] spouse when medically stable. Will update social work faculty member to provide with community resources. Tentative discharge plan is home with family when medically stable. Keila Yo RN T [facility] 07-22-2022 Consult note Associated Order (s): IP [...] rectal cancer; dx after age 50 Other (28674) Mother alcoholism Other (83744) Father h/o rheumatic fever, cardiac arrest due to bee sting Other (81172) Sister agoraphobia MEDICATIONS PRIOR TO ADMISSION: Current [...] by Jose Estrella DO 07/22/2022 10:49 AM [employer]{img} Phone: 07-22-2022 Plan of care note Problem: Pain - Adult Goal: Verbalizes/displays adequate comfort level or baseline comfort level Outcome: Progressing Problem: Safety - Adult Goal: Free from fall injury Outcome: Progressing [facility] 07-21-2022 History and physical note Images from [...] rectal cancer; dx after age 50 Other (42494) Mother alcoholism Other (34884) Father h/o rheumatic fever, cardiac arrest due to bee sting Other (55863) Sister agoraphobia Medications Prior to Admission: No [...] H&P to the patient's PCP. Thank you. [facility] 07-21-2022 History and physical note Images from [...] rectal cancer; dx after age 50 Other (60509) Mother alcoholism Other (01041) Father h/o rheumatic fever, cardiac arrest due to bee sting Other (84742) Sister agoraphobia Medications Prior to Admission: No [...] PCP. Thank you. documented in this encounter [facility] 07-21-2022 Note NOTE: This result is for medical treatment only. Analysis performed using non-forensic procedures. [facility] 07-21-2022 Emergency department Note Pt placed on 3LNC for O2 support. Saturations as low as 74%RA while sleeping. 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 Also reports BRB [...] otherwise acutely negative except as in the [place]. PAST MEDICAL HISTORY Past Medical History: Diagnosis [...] rectal cancer; dx after age 50 Other (12532) Mother alcoholism Other (58747) Father h/o rheumatic fever, cardiac arrest due to bee sting Other (26846) Sister agoraphobia SOCIAL HISTORY Social History Socioeconomic [...] In compliance with this authorization, please visit www.fda.gov/media/172406/download or www.fda.gov/media/424838/download to access the applicable information sheets. LIPASE [...] Culture. 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 Also reports BRB [...] otherwise acutely negative except as in the [place]. PAST MEDICAL HISTORY Past Medical History: Diagnosis [...] rectal cancer; dx after age 50 Other (23805) Mother alcoholism Other (15277) Father h/o rheumatic fever, cardiac arrest due to bee sting Other (57731) Sister agoraphobia SOCIAL HISTORY Social History Socioeconomic [...] In compliance with this authorization, please visit www.fda.gov/media/933894/download or www.fda.gov/media/088313/download to access the applicable information sheets. LIPASE [...] Culture. Procedure Abnormality Status --------- ------ Complete Urinalysis[[id number]] Abnormal Final result Please view results for [...] changes Discussions with other clinicians: Admitting team [facility] Chronic conditions impacting care: Hypertension Social determinants [...] Medicine Provider Arsenio Villalta DO 07/21/22 190 [facility] 07-20-2022 Telephone encounter Note Letter sent. [facility] 07-16-2022 Telephone encounter Note Pt is also requesting refills of pantoprazole (ProtoNix) 40 MG EC tablet and calcipotriene (Dovonex) 0.005 % cream. Pt advised that there should be refills of the meds at his pharmacy. Ordering provider: Dr. Rasheed Date of last office visit: 06/12/2022 Date of next office visit: n/a Updated/Validated preferred pharmacy: Yes [facility] [address] [address] Patient instructed to contact the pharmacy prior [...] of last refill (see medication tab): 06/12/2022 [facility] 07-16-2022 Miscellaneous Notes Pt is also requesting refills of pantoprazole (ProtoNix) 40 MG EC tablet and calcipotriene (Dovonex) 0.005 % cream. Pt advised that there should be refills of the meds at his pharmacy. Ordering provider: Dr. Rasheed Date of last office visit: 06/12/2022 Date of next office visit: n/a Updated/Validated preferred pharmacy: Yes [facility] [address] [phone] Patient instructed to contact the pharmacy prior [...] medication tab): 06/12/2022 documented in this encounter [facility] 07-16-2022 Telephone encounter Note Last seen:06/12/22 Scheduled:n/a [facility] 07-16-2022 Miscellaneous Notes Last seen:06/12/22 Scheduled:n/a documented in this encounter [facility] 07-13-2022 Telephone encounter Note Phone OOS [facility] 07-12-2022 Telephone encounter Note Phone OOS [facility] 07-11-2022 Telephone encounter Note No [facility] 07-11-2022 Telephone encounter Note Is there more to #3? [facility] 07-11-2022 Telephone encounter Note 1. X-ray of the shoulder is normal #2 Sugar is elevated add an A1c. Cholesterol is improving however still elevated. Low-fat diet and exercise recommend medication called Crestor let me know if okay to send in. [facility] 07-11-2022 Telephone encounter Note Can not get though on patients phone. Please read results to pt if he calls in. [facility] 07-11-2022 Miscellaneous Notes Can not get though on patients phone. Please read results to pt if he calls in. Xray of the back shows arthritis, if patient in still in pain I would recommend physical theray. Let me know if patient would like. documented in this encounter [facility] 07-11-2022 Telephone encounter Note Xray of the back shows arthritis, if patient in still in pain I would recommend physical theray. Let me know if patient would like. [facility] 06-12-2022 History of Present illness Narrative Images from the original note were not included. [facility] [address] [place] [address] Dept: [phone] Dept Loc: [phone] Reason for Visit: Annual Exam and Shoulder [...] 2 times daily., Starting Sat06/12/2022, Normal - [facility] Dermatology 4. Lumbar back pain suzanne physical therapy - XR lumbar spine complete 4+ views 5. Screening for colon cancer - [facility] General Surgery - Sotero Madsen MD - PSA Screening 6. Chronic pain of both shoulders - XR shoulder 2+ views right 7. Alcohol abuse Again I offered patient to get set up for [facility] at this time he would like to hold off. He is interested in possibly getting involved with a group through [place] for alcohol. He states that he will [...] possibly join an outpatient intense treatment in [place]. He states he will call and get [...] pain. He states the he was in long term for approximately 6 months he slept on [...] rectal cancer; dx after age 52 Other (38336) Mother alcoholism Other (00204) Father h/o rheumatic fever, cardiac arrest due to bee sting Other (98664) Sister agoraphobia Health Maintenance Topic Date Due [...] Radiology ACCESSION EXAM DATE/TIME PROCEDURE ORDERING PROVIDER [id number] 09/26/2021 19:48 EDT CR Chest Portable [id number] -DIPESH BECKMAN CPT code 04555 Reason For Exam (CR Chest Portable) epigastric [...] Lynda Rasheed MD documented in this encounter [facility] 09-29-2021 Note Hospitalist Discharg e Summary Maria [...] MD Division of Hospitalist Medicine Inpatient Medical Services/[facility] 09/29/2021, 2:37 PM [facility] 09-29-2021 History of Present illness [...] note were not included. Hospitalist Progress Note 09/28/[id number]: Please page me ([phone]) for patient care issues. [phone]: Please page IMS night Hospitalist for any [...] MD Division of Hospitalist Medicine Inpatient Medical Services/[facility] PAGER: [phone] [facility] Attending GI Progress Note [...] Friends and Family: Not on file Attends Tenriism Services: Not on file Active Member of [...] out patient treatment in the past at [facility] per Dr. Stokes notes. Patient is actively [...] For additional Questions please call Endoscopy at [phone]. Thank You! documented in this encounter [facility] Work Phone: 06-09-2021 Note [facility] Discharge Summary with Discharge DayProgress Note and [...] Your Medications These medications were sent to [facility] [address] - [phone] - [phone] [address] [facility] [address] ? amLODIPine 5 MG tablet ? pantoprazole 40 MG tablet ? predniSONE 10 MG tablet DIET: regular ACTIVITY: resum (more content not included)... [facility] 06-09-2021 Hospital Discharge instructions Lauren [...] most local grocery stores, pharmacies, and chain [employer]. If you have any questions about your diet or nutrition, call the hospital and ask for the dietitian. Jonatan Michaels MD - 06/09/2021 Images from the original note were not included. [facility] Addiction Medicine Intensive Outpatient Program [facility]: [phone] [place]: [phone] [place]: [phone] [place]: [phone] Behavioral Health Intensive Outpatient Program [facility]: [phone] [place]: [phone] [facility] [place]: [phone] [place]: [phone] Partial Hospitalization Program [facility]: [phone] Traumatic Stress Center [facility]: [phone] [facility]: [phone] (must enroll in IOP first) Alcoholics Anonymous Meetings [email or web address] The following attachments cannot be sent through Care Everywhere.9 Ways to Cut Back on Drinking: Quick List (Belarusian)naltrexone (injection) (Belarusian)documented in this encounter [facility] [employer] Phone: 06-09-2021 Hospital course Narrative Images from the original note were not included. [facility] Discharge Summary with Discharge DayProgress [...] Your Medications These medications were sent to [facility] [address] - [phone] - F [phone] [address] [facility] [address] amLODIPine 5 MG tablet pantoprazole 40 MG tablet predniSONE 10 MG tablet DIET: regular ACTIVITY: resume regular activity SIGNIFICANT DIAGNOSTIC STUDIES: CT abd/pelvis: 1. Intramural gas near the cecum and ascending colon, compatible with pneumatosis coli. 2. Hepatic steatosis. 3. Additional chronic findings as above. COMPLEXITY OF FOLLOW UP: [x] Moderate Complexity: follow up within 7-14 calendar days (60035) [] Severe Complexity: follow up within 7 calendar days (31757) FOLLOW UP TESTING, PENDING RESULTS ORREFERRALS AT [...] 06/06/2021 [facility]: [id number] Computed Tomography ACCESSION EXAM DATE/TIME PROCEDURE ORDERING PROVIDER [id number] 06/06/2021 17:[address] Abdomen/Pelvis w/ IV [id number] CATALINO ROTH Contrast (IV Onl CPT code 56129 Q9967 Reason For Exam (CT Abdomen/Pelvis w/ [...] - labs/tests/tasks to review: H/H, pain. - acura sales consultant recommendations: GI. - final plan for further addiction treatment at: not interested in formal chem dep treatment. May be interested in going to 12 step meetings. Signing off. Patient does not have to stay for phenobarbital taper to completely finish if his symptoms are minimal. This can be per primary discretion. Please contact institutional custodian ADM doctor with any issues. Jonatan Mckeon [...] from the original note were not included. [facility] Progress Note Maria De Jesus Hogan [...] reports 6AM-6PM please page: 6PM-6AM please page: [facility] Internal Medicine Images from the original note [...] Dr. Bojorquez. Keshia Lutz MD Surgery PGY-1 #[id number] PAGING: From -6 (-s): Page me at [phone] From 6- (-s): - Surg ICU Patients: [...] Please call the Main Endoscopy Dept at [phone] for questions. Images from the original note [...] Assuming care of this patient. H&P by sap bi developer after midnight was reviewed. General surgery and [...] slow advancement to likely goal of GI [place]/GERD with GI Soft component, monitoring pt's tolerance; [...] & CVA presented as a transfer from [facility] ED for need of higher level of care. Pt had been in his usual state of health prior to presentation to [place] facility, noticed while he was drinking that [...] LFTs elevated and pt then transferred to [facility]. Appears pt has had similar bleeding [...] and snoring at time of RD visit, [facility] would not record a weight this date. Malnutrition Assessment: Malnutrition Status: Insufficient data (? 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 pending GI recs/work-up, per chart appears pt himself has reported weight fluctuations/loss (of upwards 20#') when drinking more heavily, most weight hx in chart appears stated, no overt severe losses observed) Estimated Daily Nutrient Needs: Energy (kcal): 5161-6874 kcal/day; Weight Used for Energy Requirements: [place] Protein (g): 78-94 gm protein/day; Weight Used for Protein Requirements: [place] (1.0-1.2 gm protein/kg) Fluid (ml/day): per MD; Method Used for Fluid Requirements: Nutrition Related Findings: s/p CTAP this admit, +BS, last BM 06/06; No edema indicated; medications include MVI, thiamin, folic acid; labs: Sodium (130), Glucose (133), AST/ALT ^ Wounds: (Dereje 23) Current Nutrition Therapies: Diet NPO Anthropometric Measures: Height: 5' 11 (180.3 cm) Current Body Weight: ([facility] would not record a weight) Admission Body Weight: 210 lb (95.3 kg) (stated, then 205# also documented) Usual Body Weight: (per EPIC: 03/13/21- 214#, 09/13/20- 226#, 06/09/20- 200# (stated); appears pt reports large fluctuations in weight when drinking more heavily)) [place] Body Weight: 172 lbs; % [place] Body Weight BMI: 28.59 Adjusted Body Weight: [...] Dr. Bojorquez. Keshia Lutz MD Surgery PGY-1 #[id number] PAGING: From - (-s): Page me at [...] Psoriasis Other psoriasis [facility] Diagnosis Chronic left shoulder pain Pain in joint, shoulder region [facility] Diagnosis Hyperglycemia- Primary Other abnormal glucose [facility]* Diagnosis Hematemesis with nausea- Primary Hematemesis with nausea Alcohol withdrawal syndrome without complication (HCC) documented [facility] this [facility]* Diagnosis [...] inhibited sexual excitement documented in this encounter [facility] note* Diagnosis Alcohol use disorder- Primary Alcohol use disorder Alcohol withdrawal syndrome without complication (HCC) Alcohol withdrawal syndrome without complication (HCC) [facility]* Diagnosis Elevated liver enzymes Other nonspecific abnormal serum enzyme levels [facility] Diagnosis Chronic left shoulder pain Pain in joint, shoulder region [facility]* Diagnosis Chronic left shoulder pain- Primary Pain in joint, shoulder region Elevated liver enzymes Other nonspecific abnormal serum enzyme levels Psoriasis Other psoriasis Screening for colon cancer Special screening for malignant neoplasms, colon Alcohol abuse Nondependent alcohol abuse, unspecified drinking behavior documented [facility] this [facility]* Diagnosis Chronic left shoulder pain- Primary Pain in joint, shoulder region Elevated liver enzymes Other nonspecific abnormal serum enzyme levels Psoriasiform seborrheic dermatitis Other psoriasis Screening for colon cancer Special screening for malignant neoplasms, colon Alcohol abuse Nondependent alcohol abuse, unspecified drinking behavior documented [facility] this [facility]* Diagnosis Abnormal levels of other serum enzymes- Primary [facility]* Diagnosis Low back pain, unspecified- Primary Pain in left shoulder Other chronic pain Pain in right shoulder Low back pain, unspecified Pain in left shoulder Other chronic pain Pain in right shoulder [facility]* Diagnosis Alcohol use disorder, severe (HCC)- Primary Alcohol withdrawal syndrome with complication (HCC) Encounter for monitoring naltrexone therapy [facility]* Diagnosis Hyperglycemia- Primary Other abnormal glucose Abnormal CBC Other abnormal blood chemistry [facility]* Diagnosis Screening for colon cancer- Primary Special screening for malignant neoplasms, colon Lombardo's esophagus determined by endoscopy Psoriasiform seborrheic dermatitis Other psoriasis Alcohol use disorder, severe (HCC) Lumbar back pain with radiculopathy affecting lower extremity Cigarette smoker Tobacco use disorder documented in this encounter [facility] note* Diagnosis Abnormal levels of other serum enzymes- Primary documented in this encounter [facility] note* Diagnosis Chronic left shoulder pain Pain in joint, shoulder region documented [facility] this [facility]* Diagnosis Hyperglycemia, unspecified- Primary Other specified abnormal findings of blood chemistry documented in this encounter [facility] note* Diagnosis Alcohol withdrawal syndrome without complication (HCC)- Primary Alcoholism (CMS/HCC) (HCC) Other and unspecified alcohol dependence, unspecified drinking behavior Alcohol withdrawal syndrome without complication (HCC) Severe alcohol use disorder (HCC) Cigarette smoker Tobacco use disorder [facility] this [facility]* Diagnosis Pain, dental- Primary [facility]* Diagnosis Dental abscess- Primary Periapical abscess without sinus documented in this [facility]* Diagnosis Contusion of left middle finger without damage to nail, initial encounter- Primary [facility]* Diagnosis Chronic left shoulder pain Pain in joint, shoulder region [facility]* Diagnosis Alcohol withdrawal syndrome, uncomplicated (HCC)- Primary Alcohol withdrawal syndrome, uncomplicated (HCC) documented [facility] this [facility]* Diagnosis Psoriasiform seborrheic dermatitis Other psoriasis [facility]* Diagnosis Alcohol withdrawal syndrome without complication (HCC)- Primary Alcohol abuse Nondependent alcohol abuse, unspecified drinking behavior Severe alcohol use disorder (HCC) Cigarette smoker Tobacco use disorder documented [facility] this [facility]* Diagnosis Chronic left shoulder pain Pain in joint, shoulder region [facility]* Diagnosis Alcohol withdrawal syndrome without complication (HCC)- Primary Alcohol withdrawal syndrome without complication (HCC) Chronic left shoulder pain Pain in joint, shoulder region Severe alcohol use disorder (HCC) [facility]* Diagnosis Chronic left shoulder pain Pain in joint, shoulder region [facility]* Diagnosis 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)- Primary 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) [facility] Diagnosis Chronic left shoulder pain Pain in joint, shoulder region [facility]* Diagnosis Alcohol withdrawal with inpatient treatment without complication (HCC)- Primary Alcohol abuse Nondependent alcohol abuse, unspecified drinking behavior Severe alcohol use disorder (HCC) [facility]* Diagnosis Severe alcohol use disorder (HCC) [facility]* Diagnosis Screening PSA (prostate specific antigen)- Primary Special screening for malignant neoplasm of prostate Psoriasiform seborrheic dermatitis Other psoriasis Elevated liver enzymes Other nonspecific abnormal serum enzyme levels Screening for colon cancer Special screening for malignant neoplasms, colon Current smoker [facility]* Diagnosis Current smoker documented in this [facility]* Diagnosis Pulmonary nodule- Primary Other diseases of lung, not elsewhere classified documented in this encounter [facility]* Diagnosis Pulmonary emphysema, unspecified emphysema type (HCC)- Primary Pulmonary nodule Other diseases of lung, not elsewhere classified Cigarette nicotine dependence with other nicotine-induced disorder Alcohol abuse Nondependent alcohol abuse, unspecified drinking behavior [facility]* Diagnosis Elevated liver enzymes- Primary Other nonspecific abnormal serum enzyme levels Chronic left shoulder pain Pain in joint, shoulder region Psoriasis Other psoriasis Lumbar back pain Lumbago Screening for colon cancer Special screening for malignant neoplasms, colon Chronic pain of both shoulders Alcohol abuse Nondependent alcohol abuse, unspecified drinking behavior documented in this encounter [facility]* Diagnosis Alcoholic intoxication without complication (CMS/HCC) (HCC)- Primary Alcoholic intoxication without complication (CMS/HCC) (HCC) documented in this [facility]* Diagnosis Alcohol withdrawal syndrome with complication, with unspecified complication (HCC)- Primary Alcohol use disorder Alcohol withdrawal syndrome with complication, with unspecified complication (HCC) Severe alcohol use disorder (HCC) 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 Cigarette smoker Tobacco use disorder Elevated liver enzymes Other nonspecific abnormal serum enzyme levels documented [facility] this [facility]* Diagnosis [...] esophagus with esophagitis documented [facility]* Diagnosis Closed head injury, initial encounter- Primary Alcoholic intoxication without complication (CMS/HCC) (HCC) [facility]* Diagnosis Psoriasiform seborrheic dermatitis Other psoriasis Elevated liver enzymes Other nonspecific abnormal serum enzyme levels [facility]* Diagnosis Alcohol withdrawal with inpatient treatment, uncomplicated (HCC)- Primary Alcohol use disorder Alcohol withdrawal with inpatient treatment, uncomplicated (HCC) Severe alcohol use disorder (HCC) Severe alcohol use disorder (HCC) documented [facility]* Diagnosis Pulmonary nodule Other diseases of lung, not elsewhere classified documented [facility]* Diagnosis Elevated LFTs- Primary Other [...] unspecified drinking behavior documented [facility]* Diagnosis Psoriasiform seborrheic dermatitis Other psoriasis Elevated liver enzymes Other nonspecific abnormal serum enzyme levels documented [facility]* Diagnosis Subcutaneous hematoma- Primary Contusion of dorsum of foot [facility]* Diagnosis Alcohol withdrawal syndrome with complication (HCC)- Primary Alcohol dependence with inpatient treatment (HCC) Herpes zoster without complication Alcohol withdrawal syndrome without complication (HCC) 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 Severe alcohol use disorder (HCC) 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 Cigarette smoker Tobacco use disorder 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 documented [facility]* Diagnosis Acute pain associated with herpes zoster- Primary documented [facility]* Diagnosis Screening for colon cancer- Primary Special screening for malignant neoplasms, colon Psoriasiform seborrheic dermatitis Other psoriasis Elevated liver enzymes Other nonspecific abnormal serum enzyme levels Neuropathy Mononeuritis of unspecified site Herpes zoster with other complication 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 documented in this encounter [facility] Discharge instructions* Attachments The following attachments cannot be sent through Care Everywhere. * Back: Strain (Belarusian) documented in this [facility]: [facility]* Attachments The following attachments cannot be sent through Care Everywhere. * Acute Pain Discharge Instructions, Adult (Belarusian) documented in this [facility] Discharge instructions* Attachments The following attachments cannot be sent through Care Everywhere. * Alcohol Use Disorder Discharge Instructions (Belarusian) documented in this [facility] Discharge instructions* Attachments The following attachments cannot be sent through Care Everywhere. * Contusion Discharge Instructions ([place]arusian) documented in this [facility] for referral (narrative)* Consultation (Routine) - Pending Review Specialty Diagnoses / Procedures Referred By Carmen patton Referred To Contact Urology Diagnoses ED (erectile dysfunction) of non-organic origin Procedures TX OFFICE/OUTPATIENT [facility] 60-74 MINUTES Lynda Rasheed MD [address] [place] [id number] [facility]ro [address] [place] [address] [address] [place] [address] Referral ID Status Reason Start Date Expiration Date Visits Requested Visits Authorized [id number] Pending Review Specialty Services Required 08/01/2022 08/01/2023 1 1 * Consultation (Routine) - Pending Review Specialty Diagnoses / Procedures Referred By Carmen patton Referred To Contact Gastroenterology Diagnoses Elevated liver enzymes Lombardo's esophagus with dysplasia Screening for colon cancer Procedures TX OFFICE/OUTPATIENT [facility] 60-74 MINUTES Lynda Rasheed MD [address] [place] [id number] [facility] [address] [place] [address] Referral ID Status Reason Start Date Expiration Date Visits Requested Visits Authorized [id number] Pending Review Specialty Services Required 08/01/2022 08/01/2023 1 1 * (Routine) - Incomplete Specialty Diagnoses / Procedures Referred By Contac t Referred To Contact Diagnoses SOB (shortness of breath) Procedures Complete PFT study Lynda Rasheed MD [address] [place] [id number] Referral ID Status Reason Start Date Expiration Date V isits Requested Visits Authorized [id number] Incomplete 08/01/2022 01/28/2023 1 1 * Imaging (Routine) - Pending Review Specialty Diagnoses / Procedures Referred By Contac t Referred To Contact Cardiology Diagnoses Abnormal EKG Procedures Transthoracic echocardiogram (TTE) complete with contrast, bubble, strain, and 3D PRN TX ECHO TTHRC R-T 2D W/WOM-MODE COMPL SPEC&COLR D TX TTE W OR WO FOL WCONMARIO ALBERTO Diana, MD [address] [place] [address] Referral ID Status Reason Start Date Expiration Date Visits Requested Visits Authorized [id number] Pending Review Perform Procedure 08/01/2022 01/28/2023 1 1 * Consultation (Routine) - Pending Review Specialty Diagnoses / Procedures Referred By Contac t Referred To Contact Addiction Medicine / Addiction Support Services Diagnoses Uncomplicated alcohol dependence (HCC) Procedures TX OFFICE/OUTPATIENT NEW HIGH MDM 60-74 MINUTES Lynda Rasheed MD [address] [place] [address] [facility] Addiction Iop [address] [place] [address] Referral ID Status Reason Start Date Expiration Date Visits Requested Visits Authorized [id number] Pending Review Specialty Services Required 08/01/2022 08/01/2023 1 1 Pedro Tirado for referral (narrative)* Consultation (Routine) - Pending Review Specialty Diagnoses / Procedures Referred By Contac t Referred To Contact General Surgery Diagnoses Screening for colon cancer Procedures TX OFFICE/OUTPATIENT [facility] 60-74 MINUTES Lynda Rasheed MD [address] [place] [address] Sotero Madsen MD [address] [place] [address] 10 [place] [address] Referral ID Status Reason Start Date Expiration Date Visits Requested Visits Authorized [id number] Pending Review Specialty Services Required 09/25/2022 09/25/2023 1 1 * Medications - Closed Specialty Diagnoses / Procedures Referred By Contac t Referred To Contact Lynda Rasheed MD [address] [place] [address] Referral ID Status Reason Start Date Expiration Date Visits Re quested Visits Authorized [id number] Closed 1 1 Pedro Tirado for referral (narrative)* Consultation (Routine) - Pending Review Specialty Diagnoses / Procedures Referred By Contac t Referred To Contact Addiction Medicine / Addiction Support Services Diagnoses Alcohol use disorder, severe (HCC) Procedures TX OFFICE/OUTPATIENT [facility] 60-74 MINUTES Papito Hood MD [address] [place] [address] [facility] Addiction Iop [address] [place] [address] Referral ID Status Reason Start Date Expiration Date Visits Requested Visits Authorized [id number] Pending Review Specialty Services Required 10/09/2022 10/09/2023 1 1 * Medications - Pending Review Specialty Diagnoses / Procedures Referred By Contac t Referred To Contact Papito Hood MD [address] [place] [address] Referral ID Status Reason Start Date Expiration Date V isits Requested Visits Authorized [id number] Pending Review 1 1 Pedro Tirado for referral (narrative)* Consultation (Routine) - Pending Review Specialty Diagnoses / Procedures Referred By Contac t Referred To Contact General Surgery Diagnoses Screening for colon cancer Procedures TX OFFICE/OUTPATIENT [facility] MDM 60-74 MINUTES Lynda Rasheed MD [address] [place], [place] [id number] Sotero Madsen MD [address] [place] [address] Referral ID Status Reason Start Date Expiration Date Visits Requested Visits Authorized [id number] Pending Review Specialty Services Required 12/26/2022 12/26/2023 1 1 Pedro ShermanReluana for referral (narrative)* Consultation (Routine) - Pending Review Specialty Diagnoses / Procedures Referred By Contac t Referred To Contact General Surgery Diagnoses Screening for colon cancer Procedures TX OFFICE/OUTPATIENT [facility] MDM 60-74 MINUTES Lynda Rasheed MD [address] [place] [address] Sotero Madsen MD [address] [place] [address] Referral ID Status Reason Start Date Expiration Date Visits Requested Visits Authorized [id number] Pending Review Specialty Services Required 06/12/2022 06/12/2023 1 1 * Consultation (Routine) - Pending Review Specialty Diagnoses / Procedures Referred By Carmen t Referred To Contact Dermatology Diagnoses Psoriasis Procedures TX OFFICE/OUTPATIENT [facility] 60-74 MINUTES Lynda Rasheed MD [address] [place] [address] [facility] [address] [facility] [address] [place] [address] Referral ID Status Reason Start Date Expiration Date Visits Requested Visits Authorized [id number] Pending Review Specialty Services Required 06/12/2022 06/12/2023 1 1 [facility] Narr[facility]* Imaging (Routine) - Authorized Specialty Diagnoses / Procedures Referred By Carmen t Referred To Contact Radiology Diagnoses Current smoker Procedures CT lung screening low dose Lynda Rasheed MD 195 [facility] [address] [place] [address] Phone: tel: fax: Referral ID Status Reason Start Date Expiration Date V isits Requested Visits Authorized [id number] Authorized 02/05/2024 02/04/2025 1 11 [facility] Narrative* Imaging (Routine) - Closed Specialty Diagnoses / Procedures Referred By Carmen t Referred To Contact Radiology Diagnoses Pulmonary nodule Procedures CT chest wo IV contrast Myra Darden MD [address] [place] [address] Phone: tel: fax: Referral ID Status Reason Start Date Expiration Date Visits Re quested Visits Authorized [id number] Closed 02/28/2024 02/27/2025 1 1 [employer] 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 Advance Directives and Living Will Power of Facing Machine Operator Latest Code Status on File Code Status Date Activated Date Inactivated Comments Full Code 08/31/2019 9:29 PM Latest Code Status on File Code Status Date Activated Date Inactivated Comments Full Code 10/02/2019 1:24 AM 10/05/2019 6:43 PM Full Code 08/31/2019 9:29 PM 09/02/2019 4:37 PM Documents on File Type Date Recorded 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 * Back: Strain (Belarusian) * Low Back Pain: Exercises (Belarusian) documented in this encounter* Attachments The following attachments cannot be sent through Care Everywhere. * Back Pain (Belarusian) * Sciatica (Belarusian) * Low Back Pain: Exercises (Belarusian) documented in this encounter* Attachments The following attachments cannot be sent through Care Everywhere. * Sore Throat (Belarusian) * Smoking: Stopping (Belarusian) documented in this encounter* Instructions* Eryn Perrin [...] sent through Care Everywhere. * naltrexone (injection) (Belarusian) * Alcohol Use Disorder: General Info (Belarusian) * Lombardo's Esophagus (Belarusian) documented in this encounter History of Present Illness * Herbert Clarke RN - 06/10/2020 9:15 AM EST POST ENDOSCOPY PROCEDURE TRANSFER REPORT Procedure completed: EGD Findings: Please see Dr Madison note. Specimens obtained: Biopsies Medications administered: Propofol Additional Info: Please see Dr Madison report For additional Questions please call Endoscopy at [phone]. Thank You! documented in this encounter Reason for Referral Specialty Diagnoses / Procedures Referred By Carmen t Referred To Contact Lynda Rasheed MD [address] [place] [address] Referral ID Status Reason Start Date Expiration Date V isits Requested Visits Authorized [id number] Pending Review 1 1 Referral ID Status Reason Start Date Expiration Date Visits Re quested Visits Authorized [id number] Closed 1 1 Additional Source Comments (unrecognized sect ion and content) No Status Records FoundNo Status Records FoundNo Status Records FoundNo Status Records FoundNo Status Records FoundNo Status Records Found INFORMATION SOURCE (unrecogn ized section and content) DATE CREATED AUTHOR 09/18/2017 [facility] DATE CREATED AUTHOR AUTHOR'S ORGANIZ ATION 01/03/2019 [facility] DATE CREATED AUTHOR AUTHOR'S ORGANIZ ATION 01/03/2019 [facility] DATE CREATED AUTHOR AUTHOR'S ORGANIZ ATION 10/28/2021 [facility] DATE CREATED AUTHOR AUTHOR'S ORGANIZ ATION 10/31/2021 [facility] DATE CREATED AUTHOR AUTHOR'S ORGANIZ ATION 08/28/2024 [facility] Reason for Visit (unrecogniz [...] 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 Also reports BRB in his vomit. Specialty Diagnoses / Procedures Referred By Contac t Referred To Contact Diagnoses Alcohol withdrawal syndrome without complication (HCC) Hematemesis with nausea Procedures f10.930 Redd Teixeira MD [address] [place] [address] [facility] 2e Telemetry [address] [place] [address] Referral ID Status Reason Start Date Expiration Date Visits Re quested Visits Authorized [id number] 1 1 Reason Onset Date Comments Results 07/11/2022 Reason Comments Follow-up Discuss results and COPD Specialty Diagnoses / Procedures Referred By Contac t Referred To Contact Diagnoses SOB (shortness of breath) Procedures Complete PFT study Lynda Rasheed MD [address] [place] [address] Referral ID Status Reason Start Date Expiration Date V isits Requested Visits Authorized [id number] Incomplete 08/01/2022 01/28/2023 1 1 Reason Comments Alcohol Problem Pt arrives via triag e wanting detox from alcohol. Pt drinks 7-9 tall beers a day. Pt hasn't been able to eat much in the past week. Pt having some nausea/vomiting. Specialty Diagnoses / Procedures Referred By Contac t Referred To Contact Diagnoses Alcohol withdrawal syndrome without complication (HCC) Alcohol use disorder Procedures [id number] withdrawal syndrome without complication (HCC) [id number] use disorder Bryan Rodriguez MD [address] [address] [facility] [address] Det[address] [place] [address] Referral ID Status Reason Start Date Expiration Date Visits Re quested Visits Authorized [id number] 1 1 Reason Onset Date Comments Med [...] Procedures . Jonatan Mckeon MD [address] [address] [facility] 4e Detox [address] [place] [address] Referral ID Status Reason Start Date Expiration Date Visits Re quested Visits Authorized [id number] 1 1 Reason Comments Dental Pain Reason [...] per day. 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 Specialty Diagnoses / Procedures Referred By Contac t Referred To Contact Diagnoses Alcohol withdrawal syndrome, uncomplicated (HCC) Procedures f10.930 Shelly Cruz MD [address] [place] [address] [facility] Emergency Dept [address] [place] [address] Referral ID Status Reason Start Date Expiration Date Visits Re quested Visits Authorized [id number] 1 1 Reason Onset Date Comments Med [...] abuse Procedures . Jonatan Mckeon MD [address] [address] [facility] 4e Detox [address] [place] [address] Referral ID Status Reason Start Date Expiration Date Visits Re quested Visits Authorized [id number] 1 1 Reason Onset Date Comments Med Refill 07/19/2023 Reason Comments Alcohol Intoxication Specialty Diagnoses / Procedures Referred By Contac t Referred To Contact Diagnoses Alcohol withdrawal syndrome without complication (HCC) Procedures .. Bryan Rodriguez MD [address] [address] [facility] 4e Detox [address] [place] [address] Referral ID Status Reason Start Date Expiration Date Visits Re quested Visits Authorized [id number] 1 1 Reason Comments Med Refill Reason Comments Alcohol Problem Pt c/o ETOH abuse. S tates last drink was a couple hours. Pt states 8 tall boys a day typically. Pt states he's having difficulty thinking straight. Specialty Diagnoses / Procedures Referred By Contac t Referred To Contact Diagnoses 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) Procedures . Shelly Cruz MD [address] [place] [address] [facility] Emergency Dept [address] [place] [address] Referral ID Status Reason Start Date Expiration Date Visits Re quested Visits Authorized [id number] 1 1 Reason Onset Date Comments Med Refill 12/03/2023 Reason Comments Alcohol Problem Specialty Diagnoses / Procedures Referred By Carmen patton Referred To Contact Diagnoses Alcohol abuse Procedures - Luis Branch MD [address] [place] [address] Phone: tel: fax: [facility] Detox Unit [address]E [address] [place] [address] Phone: tel: Referral ID Status Reason Start Date Expiration Date Visits Re quested Visits Authorized [id number] 1 1 Reason Comments Drug / Alcohol [...] To Contact Pulmonology Diagnoses Pulmonary nodule Procedures TX OFFICE/OUTPATIENT NEW HIGH MDM 60 MINUTES Lynda Rasheed MD [address] [place] [address] [address] [place] [address] Phone: tel: fax: [facility] [address] [address] Phone: tel: fax: Referral ID Status Reason Start Date Expiration Date Visits Requested Visits Authorized [id number] Pending Review Specialty Services Required 02/12/2025 1 1 Reason Comments Annual Exam Shoulder Pain Reason Comments Alcohol Problem Patient seeking deto x from ETOH. 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 Specialty Diagnoses / Procedures Referred By Carmen patton Referred To Contact Diagnoses Alcoholic intoxication without complication (CMS/HCC) (HCC) Procedures . John Sahni MD [address] [place] [address] Phone: tel: fax: [facility] [address] [place] [address] Phone: tel: Referral ID Status Reason Start Date Expiration Date Visits Re quested Visits Authorized [id number] 1 1 Reason Comments Alcohol Problem Patient presents for detox from alcohol. 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 Specialty Diagnoses / Procedures Referred By Carmen t Referred To Contact Diagnoses Alcohol withdrawal syndrome with complication, with unspecified complication (HCC) Alcohol use disorder Procedures . Jonatan Mckeon MD [address] [address] Phone: tel: fax: [facility] Detox Unit [address]E [address] [place] [address] Phone: tel: Referral ID Status Reason Start Date Expiration Date Visits Re quested Visits Authorized [id number] 1 1 Reason Comments Hospital Follow-up 05/07/24 [facility] for detox Reason Comments Fall Head [...] Procedures . Jonatan Mckeon MD [address] [address] Phone: tel: fax: [facility] Detox Unit [address] [address] [place] [address] Phone: tel: Referral ID Status Reason Start Date Expiration Date Visits Re quested Visits Authorized [id number] 1 1 Reason Onset Date Comments Test Scheduling 06/03/2024 Reason Onset Date Comments Med Refill 06/22/2024 Reason Comments Toe Injury Dropped dresser on 4 th toe of left foot yest morning. Reason Comments Rash On abdomen Back Pain Middle of back. No k nown injury. 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 Requ esting detox Specialty Diagnoses / Procedures Referred By Contmicha t Referred To Contact Diagnoses Alcohol dependence with inpatient treatment (HCC) Herpes zoster without complication Alcohol withdrawal syndrome without complication (HCC) Procedures . Bryan Rodriguez MD [address] [facility] [address] [place] [address] Phone: tel: fax: [facility] Detox Unit [address]E [address] [place] [address] Phone: tel: Referral ID Status Reason Start Date Expiration Date Visits Re quested Visits Authorized [id number] 1 1 Reason Comments Rash Reason Comments [...] Care Teams (unrecognized sec tion and content) Test Man Relationship Specialty Start Date End Date Lynda Rasheed MD [address] [place], [place] [id number] PCP - General Family Medicine 02/25/17 Test Man Relationship Specialty Start Date End Date Lynda Rasheed MD [address] [place] [address] PCP - General Family Medicine 02/25/17 Test Man Relationship Specialty Start Date End Date Lynda Rasheed MD [address] [place] [address], [place] [address] PCP - General Family Medicine 02/25/17 Test Man Relationship Specialty Start Date End Date Lynda Rasheed MD [address] [place] [address], [place] [address] PCP - General 02/25/17 Test Man Relationship Specialty Start Date End Date Lynda Rasheed MD [address] [place] [address], [place] [address] PCP - General 02/25/17 Test Man Relationship Specialty Start Date End Date Lynda Rasheed MD [address] [place] [address], [place] [address] PCP - General 02/25/17 Test Man Relationship Specialty Start Date End Date Lynda Rasheed MD [address] [place] [address], [place] [address] PCP - General 02/25/17 Test Man Relationship Specialty Start Date End Date Lynda Rasheed MD [address] [place] [address], [place] [address] PCP - General 02/25/17 Test Man Relationship Specialty Start Date End Date Lynda Rasheed MD [address] [place] [address], [place] [address] PCP - General 02/25/17 Test Man Relationship Specialty Start Date End Date Lynda Rasheed MD [address] [place] [address], [place] [address] PCP - General 02/25/17 Test Man Relationship Specialty Start Date End Date Lynda Rasheed MD [address] [place] [address], [place] [address] PCP - General 02/25/17 Test Man Relationship Specialty Start Date End Date Lynda Rasheed MD [address] [place] [address] PCP - General 02/25/17 Test Man Relationship Specialty Start Date End Date Lynda Rasheed MD [address] [place] [address] PCP - General 02/25/17 Test Man Relationship Specialty Start Date End Date Lynda Rasheed MD [address] [place] [address] PCP - General 02/25/17 Test Man Relationship Specialty Start Date End Date Lynda Rasheed MD [address] [place] [address] PCP - General 02/25/17 Test Man Relationship Specialty Start Date End Date Lynda Rasheed MD [address] [place] [address] PCP - General 02/25/17 Test Man Relationship Specialty Start Date End Date Lynda Rasheed MD [address] [place] [address] PCP - General 02/25/17 Test Man Relationship Specialty Start Date End Date Lynda Rasheed MD [address] [place] [address] PCP - General 02/25/17 Test Man Relationship Specialty Start Date End Date Lynda Rasheed MD [address] [place] [address] PCP - General 02/25/17 Test Man Relationship Specialty Start Date End Date Lynda Rasheed MD [address] [place] [address] PCP - General 02/25/17 Test Man Relationship Specialty Start Date End Date Lynda Rasheed MD [address] [place] [address] PCP - General 02/25/17 Test Man Relationship Specialty Start Date End Date Lynda Rasheed MD [address] [place] [address] PCP - General 02/25/17 Test Man Relationship Specialty Start Date End Date Lynda Rasheed MD [address] [place] [address] PCP - General 02/25/17 Test Man Relationship Specialty Start Date End Date Lynda Rasheed MD [address] [place] [address] [address] [place] [address] PCP - General 02/25/17 Test Man Relationship Specialty Start Date End Date Lynda Rasheed MD [address] [place] [address] [address] [place] [address] PCP - General 02/25/17 Test Man Relationship Specialty Start Date End Date Lynda Rasheed MD [address] [place] [address] [address] [place] [address] PCP - General 02/25/17 Test Man Relationship Specialty Start Date End Date Lynda Rasheed MD [address] [place] [address] PCP - General 02/25/17 Test Man Relationship Specialty Start Date End Date Lynda Rasheed MD [address] [place] [address] PCP - General 02/25/17 Test Man Relationship Specialty Start Date End Date Lynda Rasheed MD [address] [place] [address] PCP - General 02/25/17 Test Man Relationship Specialty Start Date End Date Lynda Rasheed MD [address] [place] [address] PCP - General 02/25/17 Test Man Relationship Specialty Start Date End Date Lynda Rasheed MD [address] [place] [address] PCP - General 02/25/17 Test Man Relationship Specialty Start Date End Date Lynda Rasheed MD [address] [place] [address] PCP - General 02/25/17 Test Man Relationship Specialty Start Date End Date Lynda Rasheed MD [address] [place] [address] PCP - General 02/25/17 Test Man Relationship Specialty Start Date End Date Lynda Rasheed MD [address] [place] [address] PCP - General 02/25/17 Test Man Relationship Specialty Start Date End Date Lynda Rasheed MD [address] [place] [address] PCP - General 02/25/17 Test Man Relationship Specialty Start Date End Date Lynda Rasheed MD [address] [place] [address] PCP - General 02/25/17 Test Man Relationship Specialty Start Date End Date Lynda Rasheed MD [address] [place] [address] PCP - General 02/25/17 Test Man Relationship Specialty Start Date End Date Lynda Rasheed MD [address] [place] [address] PCP - General 02/25/17 Test Man Relationship Specialty Start Date End Date Lynda Rasheed MD [address] [place] [address] PCP - General 02/25/17 Test Man Relationship Specialty Start Date End Date Lynda Rasheed MD [address] [place] [address] PCP - General 02/25/17 Test Man Relationship Specialty Start Date End Date Lynda Rasheed MD [address] [place] [address] PCP - General 02/25/17 Test Man Relationship Specialty Start Date End Date Lynda Rasheed MD [address] [place] [address] PCP - General 02/25/17 Test Man Relationship Specialty Start Date End Date Lynda Rasheed MD [address] [place] [address] PCP - General 02/25/17 Test Man Relationship Specialty Start Date End Date Lynda Rasheed MD [address] [place] [address] PCP - General 02/25/17 Test Man Relationship Specialty Start Date End Date Lynda Rasheed MD [address] [place] [address] PCP - General 02/25/17 Test Man Relationship Specialty Start Date End Date Lynda Rasheed MD [address] [place] [address] PCP - General 02/25/17 Test Man Relationship Specialty Start Date End Date Lynda Rasheed MD [address] [place] [address] PCP - General 02/25/17 Test Man Relationship Specialty Start Date End Date Lynda Rasheed MD [address] [place] [place] [address] PCP - General 02/25/17 Test Man Relationship Specialty Start Date End Date Lynda Rasheed MD [address] [place] [address] PCP - General 02/25/17 Radha Wylie, BARBACK Respiratory Therapist Respiratory Therapy 03/02/24 Test Man Relationship Specialty Start Date End Date Lynda Rasheed MD [address] [place] [address] PCP - General 02/25/17 Radha Wylie, BARBACK Respiratory Therapist Respiratory Therapy 03/02/24 Test Man Relationship Specialty Start Date End Date Lynda Rasheed MD [address] [place] [address] PCP - General 02/25/17 Radha Wylie, BARBACK Respiratory Therapist Respiratory Therapy 03/02/24 Test Man Relationship Specialty Start Date End Date Lynda Rasheed MD [address] [place] [address] PCP - General 02/25/17 Radha Wylie, BARBACK Respiratory Therapist Respiratory Therapy 03/02/24 Test Man Relationship Specialty Start Date End Date Lynda Rasheed MD [address] [place] [address] PCP - General 02/25/17 Radha Wylie, BARBACK Respiratory Therapist Respiratory Therapy 03/02/24 Test Man Relationship Specialty Start Date End Date Lynda Rasheed MD [address] [place] [address] PCP - General 02/25/17 Radha Wylie, BARBACK Respiratory Therapist Respiratory Therapy 03/02/24 Test Man Relationship Specialty Start Date End Date Lynda Rasheed MD [address] [place] [address] PCP - General 02/25/17 Radha Wylie, [facility] Respiratory Therapist Respiratory Therapy 03/02/24 Test Man Relationship Specialty Start Date End Date Lynda Rahseed MD [address] [place] [address] PCP - General 02/25/17 Radha Wylie, [facility] Respiratory Therapist Respiratory Therapy 03/02/24 Test Man Relationship Specialty Start Date End Date Lynda Rasheed MD [address] [place] [address] PCP - General 02/25/17 Radha Wylie, [facility] Respiratory Therapist Respiratory Therapy 03/02/24 Test Man Relationship Specialty Start Date End Date Lynda Rasheed MD [address] [place] [address] PCP - General 02/25/17 Radha Wylie, [facility] Respiratory Therapist Respiratory Therapy 03/02/24 Test Man Relationship Specialty Start Date End Date Lynda Rasheed MD [address] [place] [address] PCP - General 02/25/17 Radha Wylie, [facility] Respiratory Therapist Respiratory Therapy 03/02/24 Test Man Relationship Specialty Start Date End Date Lynda Rasheed MD [address] [place] [address] PCP - General 02/25/17 Radha Wylie, [facility] Respiratory Therapist Respiratory Therapy 03/02/24 Test Man Relationship Specialty Start Date End Date Lynda Rasheed MD [address] [place] [address] PCP - General 02/25/17 Radha Wylie, [facility] Respiratory Therapist Respiratory Therapy 03/02/24 Test Man Relationship Specialty Start Date End Date Lynda Rasheed MD [address] [place] [address] PCP - General 02/25/17 Radha Wylie, [facility] Respiratory Therapist Respiratory Therapy 03/02/24 Test Man Relationship Specialty Start Date End Date Lynda Rasheed MD [address] [place] [address] PCP - General 02/25/17 Radha Wylie, [facility] Respiratory Therapist Respiratory Therapy 03/02/24 Test Man Relationship Specialty Start Date End Date Lynda Rasheed MD [address] [place] [address] PCP - General 02/25/17 Radha Wylie, [facility] Respiratory Therapist Respiratory Therapy 03/02/24 Test Man Relationship Specialty Start Date End Date Lynda Rasheed MD [address] [place] [address] PCP - General 02/25/17 Radha Wylie, [facility] Respiratory Therapist Respiratory Therapy 03/02/24 Test Man Relationship Specialty Start Date End Date Lynda Rasheed MD [address] [place] [address] PCP - General 02/25/17 Radha Wylie, [facility] Respiratory Therapist Respiratory Therapy 03/02/24 Test Man Relationship Specialty Start Date End Date Lynda Rasheed MD [address] [place], [place] [address] PCP - General 02/25/17 Radha Wylie, [facility] Respiratory Therapist Respiratory Therapy 03/02/24 Test Man Relationship Specialty Start Date End Date Lynda Rasheed MD [address] [place], [place] [id number] PCP - General 02/25/17 Radha Wylie, [facility] Respiratory Therapist Respiratory Therapy 03/02/24 Test Man Relationship Specialty Start Date End Date Lynda Rasheed MD [address] [place], [place] [address] PCP - General 02/25/17 Radha Wylie, [facility] Respiratory Therapist Respiratory Therapy 03/02/24 Scheduled Active [...] Beal RN) 1000 (Not Given - Provider: Eveiln Olivera RN - Reason: Patient not available - Comment: patient off unit for procedure)1446 (Given - Provider: Evelin Olivera RN)2052 (Given - Provider: Evelin Duncan RN) 0841 (Given - Provider: aLuren Alexander, JAY)1521 (Given - Provider: Lauren Alexander [...] 1636 0940 (New Bag - Provider: Sergey Veladre RN) 0524 (New Bag - Provider: Nancy [...] Velarde RN)0940 (See Alternative - Provider: Sergey eVlarde RN) LORazepam (ATIVAN) injection 3 mg(Linked Group [...] Provider: Sergey Velarde RN) LORazepam (ATIVAN) injection 4 mg(Linked Group [...] RN) 08 (Given - Provider: Larry Morris, JAY) melatonin tablet 5 mg 5 mg, Oral, [...] Larry Morris, RN)0808 (Patch Applied - Provider: Lrary Morris, JAY) pantoprazole (PROTONIX) 40 mg in [...] Morris RN)1200 (Due - Provider: Hui Barker [facility])1600 (Due - Provider: Hui Barker [facility])2000 (Due - Provider: Hui Barker [facility]) sodium chloride flush 0.9 % injection [...] Provider: Kasie Gay, JAY) LORazepam (ATIVAN) injection 2 mg(Linked [...] as needed. 0604 (See Alternative - Provider: Jaurez Avalos RN)0822 (See Alternative - Provider: Rena [...] with 1ml NS. 203 (Given - Provider: Nick Gordon RN) 0109 (See [...] Tram Tello RN)0638 (See Alternative - Provider: Tarm Tello RN)0903 (See Alternative - Provider: Sera [...] Tello RN) 032 (See Alternative - Provider: Trma Tello RN)0638 (See Alternative - Provider: Tram [...] Lizz Martinez RN) 0827 (Given - Provider: aLuren Irby RN)1315 (Given - Provider: Lauren Irby [...] dose 1044 (Given - Provid er: Samia Fraga RN) Scheduled Medication Order 05/21/2023 05/22/2023 05/23/2023 [...] refused) 0900 (Not Given - Provider: Julianna Hampton RN - Reason: Medication not available) clobetasol [...] as needed. 0321 (Given - Provider: Alpa iMddleton RN)075 (See Alternative - Provider: Estella De [...] Mullins, JAY) 0507 (Given - Provider: Evelyn Abad, JAY) 0505 (Given - Provider: Evelyn Abad RN) PHENobarbital (Luminal) tablet 97.2 mg 97.2 mg, Oral, Every 4 hours, First dose on Sat07/08/23 at 1930, OK to HOLD if overly sedated 0304 (Given - Provider: Roger Mullins RN)0746 (Given - Provider: Stephanie Schmitt RN)1152 [...] Oral, 3 times daily, First dose on Mounika 11/28/23 at 0900 0838 (Given - Provider: Gris Dillon, RN)1409 (Given - Provider: Grsi Dillon, RN)2224 (Given - Provider: Arsenio Chowdhury [...] at 0900 0908 (Given - Provider: Dee Lyn RN) pantoprazole (ProtoNix) EC tablet 40 mg [...] Kody Keen RN)1111 (Given - Provider: Kody eKen RN)1807 (Given - Provider: Kody Keen RN) [...] at 2142, For 1 dose, Please notify institutional custodian attending if this has to be utilized [...] at 192, For 1 dose, Please notify institutional custodian attending if this has to be utilized [...] at 2100 0829 (Given - Provider: Lauren Irby RN) gabapentin (Neurontin) capsule 800 mg 800 [...] sedation for opioid reversal - MUST notify institutional custodian provider immediately after first dose, may give [...] BE BASED ON THE PRIMARY CLINICAL RECORDS. [email or web address] [facility]. provides no warranty or guarantee of the accuracy or completeness of information in this document.
[2024-09-17 20:30] VITALS: BP 98/85; PULSE 109; RESP 18; O2SAT 94
[2024-09-17 20:33] VITALS: BP 98/85; PULSE 109; RESP 18; TEMP 36.5; O2SAT 94
[2024-09-17 20:47] VITALS: BP 132/96; PULSE 103; RESP 16; TEMP 36.4; O2SAT 93
[2024-09-17 20:49] LABS: International Normalized Ratio 0.9; Prothrombin Time (Protime)PT. 12.8 SECONDS (11.7-14.9)
[2024-09-17 20:50] VITALS: BMI 30.2
[2024-09-17 20:50] LABS: Magnesium 2.1 mg/dL (1.5-2.2)
[2024-09-17] MEDS: 0.9% Normal Saline (1000mL) 1,000 ML 100 ML IV (21:18)
[2024-09-17] MEDS: Phenobarbital 32.4 MG Tablet 64.8 MG PO (21:18)
[2024-09-17] MEDS: 0.9% Saline Lock 10 ML Syringe IV (21:18)
[2024-09-17 22:03] VITALS: BMI 30.2
[2024-09-17] MEDS: MELATONIN 10 MG TABLET 5 MG PO (22:14)
[2024-09-17] MEDS: Gabapentin 600 MG Tablet PO (22:14)
[2024-09-18] VITALS (10 sets, daily range): BP systolic 123–158; BP diastolic 63–104; PULSE 100–108; RESP 16–20; TEMP 36.4–36.9; O2SAT 76–94; BMI 30.2
[2024-09-18] MEDS: Phenobarbital 32.4 MG Tablet 64.8 MG PO ×6 (00:39→20:46)
[2024-09-18] MEDS: Gabapentin 600 MG Tablet PO ×3 (05:59→22:42)
[2024-09-18] MEDS: 0.9% Normal Saline (1000mL) 1,000 ML 100 ML IV (06:25)
[2024-09-18 06:27] LABS: Absolute Lymphocyte Count 1.21 X10^3/uL (0.83-4.51); Absolute Neutrophil Count 2.2 X10^3/uL (2.0-7.7); Basophil# 0.05 X10^3/uL; Basophil% 1.2 % (0-1); Eosinophil# 0.22 X10^3/uL; Eosinophils% 5.2 % (0-5); Hematocrit 47.3 % (40-54); Hemoglobin 16.2 g/dL (13.0-16.5); Lymphocyte # 1.21 X10^3/ul (0.83-4.51); Lymphocyte % 28.3 % (19-41); Mean Corp Hgb Conc 34.2 g/dL (32-36); Mean Corpuscular Hgb 33.9 pg (27.0-32.0); Mean Platelet Vol. 8.2 fl (6.2-12.0); Monocyte% 14.1 % (0-10); NRBC Flagged by Analyzer 0 % (0-5); Neutrophil # 2.18 X10^3/uL (2.7-7.7); Platelet Count 266 K/mm3 (150-450); RBC Distribution Width CV 13.6 % (11.6-14.6); RBC Distribution Width SD 49.9 fl (35.1-43.9); Red Blood Count 4.78 M/mm3 (4.6-6.2); White Blood Count 4.3 K/mm3 (4.4-11.0)
[2024-09-18 07:06] LABS: ALB/GLOB Ratio 1.3 RATIO (0.9-2.4); AST(SGOT) 50 U/L (<=37); Alanine Aminotransfer ALT/SGPT 54 U/L (<=46); Albumin, Serum 3.8 g/dL (3.5-5.0); Alkaline Phosphatase 103 U/L (40-129); Anion Gap 10 (5-15); BUN 4 mg/dL (4-19); BUN/Creat Ratio 5.9 RATIO (10-20); Calcium,Total 8.2 mg/dL (7.6-11.0); Carbon Dioxide 28.4 mmol/L (21.0-32.0); Chloride 99 mmol/L (98-108); Creatinine, Serum 0.63 mg/dL (0.70-1.20); EST Glomerular Filtration Rate 112 (>60); Estimated Creatinine Clearance 156.63 ml/min (50-250); Globulin 2.9 g/dL (2.2-4.2); Glucose 91 mg/dL (70-99); Phosphorus 4.6 mg/dL (2.7-4.5); Potassium 4.5 mmol/L (3.3-5.1); Protein, Total 6.7 g/dL (5.9-8.4); Sodium Level 138 mmol/L (133-145); Total Bilirubin 0.29 mg/dL (0.00-1.30)
[2024-09-18] MEDS: Folic Acid 1 MG Tablet PO (08:52)
[2024-09-18] MEDS: Pantoprazole Sodium 20 MG Tablet PO (08:52)
[2024-09-18] MEDS: Thiamine Hydrochloride 100 MG Tablet PO (08:53)
[2024-09-18] MEDS: Nicotine Polacrilex 2 MG GUM PO ×2 (08:53→15:17)
[2024-09-18] MEDS: hydrOXYzine PAM 25 MG Capsule 50 MG PO ×2 (09:03→15:12)
--- NOTE | 2024-09-18 09:08 | NURSING ---
spo2 88% on RA, sitting straight up in bed. I.S and pep given and education given on how to use and importance.
--- NOTE | 2024-09-18 13:07 | PN.HOSP_ITS ---
Reason for Visit Reason for Visit: Diagnoses Obesity, class 1 (09/17/24) Alcohol abuse, uncomplicated (09/17/24) Alcohol use, unspecified with intoxication, uncomplicated (09/17/24) Nicotine dependence, unspecified, uncomplicated (09/17/24) Chronic obstructive pulmonary disease, unspecified (09/17/24) Alcoholic hepatitis without ascites (09/17/24) Subjective Subjective Feeling well. Has some tremors in his upper extremities. States that he normally detoxes quickly today as a follow-up appointment with IOP with carri Hoyt. Objective Data Objective Data Vital Signs: Vital Signs Temp Pulse Resp BP Pulse Ox O2 Del Method O2 Flow Rate 36.4 C L 103 H 20 H 155/104 H 88 Room Air 2 09/18/24 08:40 09/18/24 08:40 09/18/24 08:40 09/18/24 08:40 09/18/24 08:50 09/18/24 08:50 09/18/24 04:44 Oxygen Flow Rate (L/min) 2 Oxygen Delivery Method Room Air Weight: 98.5 kg Body Mass Index (BMI) 30.2 Intake & Output: Intake and Output for Last 24 Hours 09/16/24 09/17/24 09/18/24 23:59 23:59 23:59 Intake Total 300 / 300 2578.34 / 2578.34 Balance 300 / 300 2578.34 / 2578.34 Lab / Micro Data 09/18/24 05:56 09/18/24 05:56 Labs: Laboratory Results - last 24 hr 09/17/24 18:49: WBC 7.1, RBC 5.11, Hgb 17.1 H, Hct 49.4, MCV 96.7 H, MCH 33.5 H, MCHC 34.6, RDW Std Deviation 48.2 H, RDW Coeff of [place] 13.4, Plt Count 281, MPV 8.2, Immature Gran % (Auto) 0.300, Neut % (Auto) 53.0, Lymph % (Auto) 31.7, [place] % (Auto) 11.8 H, Eos % (Auto) 2.5, Baso % (Auto) 0.7, Absolute Neuts (auto) 3.8, Absolute Lymphs (auto) 2.26, Nucleated RBC % 0, Sodium 131 L, Potassium 4.5, C hloride 94 L, Carbon Dioxide 22.2, Anion Gap 14, BUN 4, Creatinine 0.60 L, Estim Creat Clear Calc 165.82, Est GFR (MDRD) Non-Af 113, BUN/Creatinine Ratio 6.5 L, Glucose 176 H, Calcium 8.7, Magnesium 2.1, Total Bilirubin 0.33, AST 63 H, ALT 64 H, Alkaline Phosphatase 116, Total Protein 7.4, Albumin 4.1, Globulin 3.3, Albumin/Globulin Ratio 1.3, Urine Opiates Screen NEGATIVE, U Buprenorphine Qual NEGATIVE, Ur Oxycodone Screen NEGATIVE, Urine Methadone Screen NEGATIVE, Urine Fentanyl Screen NEGATIVE, Ur Barbiturates Screen NEGATIVE, Ur Phencyclidine Scrn NEGATIVE, Ur Amphetamines Screen NEGATIVE, U Benzodiazepines Scrn NEGATIVE, Urine Cocaine Screen NEGATIVE, U Cannabinoids Screen NEGATIVE, Ethyl Alcohol 368.0 H* 09/17/24 20:29: PT 12.8, INR 0.9 09/18/24 05:56: WBC 4.3 L, RBC 4.78, Hgb 16.2, Hct 47.3, MCV 99.0 H, MCH 33.9 H, MCHC 34.2, RDW Std Deviation 49.9 H, RDW Coeff of [place] 13.6, Plt Count 266, MPV 8.2, Immature Gran % (Auto) 0.200, Neut % (Auto) 51.0, Lymph % (Auto) 28.3, [place] % (Auto) 14.1 H, Eos % (Auto) 5.2 H, Baso % (Auto) 1.2 H, Absolute Neuts (auto) 2.2, Absolute Lymphs (auto) 1.21, Nucleated RBC % 0, Sodium 138, Potassium 4.5, Chloride 99, Carbon Dioxide 28.4, Anion Gap 10, BUN 4, Creatinine 0.63 L, Estim Creat Clear Calc 156.63, Est GFR (MDRD) Non-Af 112, BUN/Creatinine Ratio 5.9 L, Glucose 91, Calcium 8.2, Phosphorus 4.6 H, Total Bilirubin 0.29, AST 50 H, ALT 54 H, Alkaline Phosphatase 103, Total Protein 6.7, Albumin 3.8, Globulin 2.9, Albumin/Globulin Ratio 1.3, TSH 2.810, Ethyl Alcohol 119.0 H Physical Exam Const alert and no apparent distress Constitutional Narrative: Up ambulating the room with normal gait. Slight tremulousness of the upper extremities bilaterally. Alert and oriented. Nontoxic. HEENT head/scalp atraumatic Resp normal respiratory effort and no retractions Cardio regular rate and regular rhythm Assessment & Plan Assessment/Plan (1) Alcohol withdrawal: PLAN: Thus far uncomplicated. Continue with phenobarbital taper. Continue with thiamine and folate. Patient to follow-up with carri Hoyt for IOP. Anticipated length of stay is 1-2 more days. Charges/Coding Visit Charges Inpatient E&M: 22905 Subs Hosp L1
--- NOTE | 2024-09-18 13:50 | ADDICTION ---
Met w/pt to complete RAMP assessments. Pt was a&Ox4. He answered all questions appropriately. Pt has been through residential and intensive outpatient program a couple of times and believes that doing IOP in a hospital ([facility]) will be helpful to work on his alcohol issues.
[2024-09-18] MEDS: Albuterol 2.5 MG/3 ML VIAL.NEB. INHALATION (15:44)
[2024-09-18] MEDS: 0.9% Saline Lock 10 ML Syringe IV (20:48)
[2024-09-18] MEDS: MELATONIN 10 MG TABLET 5 MG PO (22:42)
[2024-09-19 00:41] VITALS: BP 145/76; PULSE 98; RESP 16; TEMP 37; O2SAT 94
[2024-09-19] MEDS: Phenobarbital 32.4 MG Tablet 64.8 MG PO ×6 (00:42→20:28)
[2024-09-19 04:39] VITALS: BP 144/82; PULSE 100; RESP 18; TEMP 37.2; O2SAT 94
[2024-09-19] MEDS: Gabapentin 600 MG Tablet PO ×3 (06:54→21:16)
[2024-09-19 07:43] LABS: Phosphorus 3.9 mg/dL (2.7-4.5)
[2024-09-19 09:15] VITALS: BP 142/103; PULSE 104; RESP 18; TEMP 36.9; O2SAT 97
[2024-09-19] MEDS: Pantoprazole Sodium 20 MG Tablet PO (09:22)
[2024-09-19] MEDS: Folic Acid 1 MG Tablet PO (09:22)
[2024-09-19] MEDS: Thiamine Hydrochloride 100 MG Tablet PO (09:22)
[2024-09-19 09:31] VITALS: RESP 16
[2024-09-19] MEDS: Albuterol 2.5 MG/3 ML VIAL.NEB. INHALATION (09:31)
--- NOTE | 2024-09-19 10:50 | PCM.PN.HOSP ---
Reason for Visit Reason for Visit: Diagnoses Obesity, class 1 (09/17/24) Alcohol abuse, uncomplicated (09/17/24) Alcohol dependence with withdrawal, unspecified (09/17/24) Alcohol use, unspecified with intoxication, uncomplicated (09/17/24) Nicotine dependence, unspecified, uncomplicated (09/17/24) Chronic obstructive pulmonary disease, unspecified (09/17/24) Alcoholic hepatitis without ascites (09/17/24) Subjective Subjective Feeling ok. Still with tremulousness. Feels he needs to stay another day. Objective Data Objective Data Vital Signs: Vital Signs Temp Pulse Resp BP Pulse Ox O2 Del Method O2 Flow Rate 36.9 C 104 H 16 142/103 H 97 Room Air 2 09/19/24 09:15 09/19/24 09:15 09/19/24 09:31 09/19/24 09:15 09/19/24 09:15 09/19/24 09:31 09/19/24 04:39 Oxygen Flow Rate (L/min) 2 Oxygen Delivery Method Room Air Weight: 98.5 kg Body Mass Index (BMI) 30.2 Intake & Output: Intake and Output for Last 24 Hours 09/17/24 09/18/24 09/19/24 23:59 23:59 23:59 Intake Total 300 / 300 3228.34 / 3228.34 Balance 300 / 300 3228.34 / 3228.34 Lab / Micro Data 09/18/24 05:56 09/18/24 05:56 Labs: Laboratory Results - last 24 hr 09/19/24 06:28: Phosphorus 3.9 Physical Exam Const alert and no apparent distress HEENT head/scalp atraumatic and moist oral mucous membranes Resp normal respiratory effort and no retractions Extremity normal to inspection and full ROM Neuro Sensorium / Orientation: awake and alert Psych affect normal Assessment & Plan Assessment/Plan (1) Alcohol withdrawal: PLAN: Thus far uncomplicated. Continue with phenobarbital taper. Continue with thiamine and folate. Patient to follow-up with carri Hoyt for IOP. Anticipated length of stay is 1 more day. Charges/Coding Visit Charges Inpatient E&M: 14737 Subs Hosp L1
[2024-09-19] MEDS: Nicotine Polacrilex 2 MG GUM PO ×4 (12:45→21:18)
[2024-09-19 14:47] VITALS: BP 135/91; PULSE 100; RESP 16; TEMP 36.3; O2SAT 96
[2024-09-19 20:33] VITALS: BP 147/93; PULSE 104; RESP 18; TEMP 36.6; O2SAT 95
[2024-09-19] MEDS: MELATONIN 10 MG TABLET 5 MG PO (21:16)
[2024-09-19] MEDS: traZODone 100 MG Tablet PO (21:18)
[2024-09-20] MEDS: Phenobarbital 32.4 MG Tablet 64.8 MG PO ×2 (00:58→05:08)
[2024-09-20 02:00] VITALS: BP 104/76; PULSE 102; RESP 16; TEMP 36.6; O2SAT 94
[2024-09-20] MEDS: Gabapentin 600 MG Tablet PO (05:08)
[2024-09-20 05:32] VITALS: BMI 30.2
[2024-09-20 08:45] VITALS: BP 137/82; PULSE 104; RESP 18; TEMP 36.6; O2SAT 97
[2024-09-20] MEDS: Nicotine Polacrilex 2 MG GUM PO (08:52)
[2024-09-20] MEDS: Folic Acid 1 MG Tablet PO (08:52)
[2024-09-20] MEDS: Thiamine Hydrochloride 100 MG Tablet PO (08:53)
[2024-09-20] MEDS: Pantoprazole Sodium 20 MG Tablet PO (08:53)
--- NOTE | 2024-09-20 10:17 | DS.PCM_ITS ---
Providers Date of Admission: 09/17/24 Primary Care Physician: Out [facility] Doctor Reason For Visit: ACUTE ETOH INTOXICATION WITH CHRONIC ETOH ABUSE Diagnosis Discharge Diagnosis (1) Alcohol withdrawal: Status: Acute Code(s): F10.239 - Alcohol dependence with withdrawal, unspecified Plan: Thus far uncomplicated. Continue with phenobarbital taper. Continue with thiamine and folate. Patient to follow-up with carri Hoyt for IOP. Medications at Discharge Home Medications cyclobenzaprine 10 mg tablet 10 mg PO QHS muscle spasm 09/17/24 gabapentin 300 mg capsule 600 mg PO TID 09/17/24 melatonin 5 mg tablet 5 mg PO QHS 09/17/24 omeprazole 20 mg tablet,delayed release 20 mg PO DAILY 09/17/24 multivitamin (Daily Multi-Vitamin tablet) 1 tab PO DAILY #30 tabs 09/20/24 Hospital Course Operations None Procedures None Summary of Care Provided Hospital Course: Patient admitted for acute alcohol withdrawal treatment. His treatment was uncomplicated and patient was on phenobarbital taper. Patient will be discharged home. Patient plans to follow-up with carri Hoyt [facility]. Weight / BMI Weight Weight: 98.5 kg Body Mass Index (BMI) 30.2 ABG / Lab / Microbiology Data 09/18/24 05:56 09/18/24 05:56 D/C Instructions Discharge Diet: No restrictions DC O2, CPAP, BIPAP Needs Home O2 Discharge instructions: No Meaningful Use Info Meaningful Use Meaningful Use Diagnoses (Choose all that apply): None applicable Ischemic Stroke Statin Dosing Therapy Reference: STATIN DOSE THERAPY REFERENCE: * Patients > 75 years receive moderate or high dose statin therapy. * Patients 75 years or YOUNGER should receive HIGH intensity statin dose unless contraindicated. You will be required to document reason for non-treatment if statin daily dose does not meet guidelines. HIGH DOSE STATIN THERAPY DAILY Atorvastatin > than or = to 40 mg Rosuvastatin > than or = to 20 mg Amlodipine + Atorvastatin > than or = to 2.5/40 mg Ezetimibe + Simvastatin 10/80 mg Simvastatin 80mg Discharge Plan Admission Admit Date/Time: 09/17/24 20:05 Primary Reason for Your Visit: alcohol withdrawal. Attending Provider: Bryan Cox Primary Care Provider: [facility] Doctor,Out of Consulting Providers: Joon Vinson Discharge Orders/Prescriptions Prescriptions: New multivitamin [Daily Multi-Vitamin] Tablet 1 tab PO DAILY Qty: 30 0RF Rx Instructions: [id number]-addseft. No prescription required. Continued cyclobenzaprine 10 mg tablet 10 mg PO QHS gabapentin 300 mg capsule 600 mg PO TID melatonin 5 mg tablet 5 mg PO QHS omeprazole 20 mg tablet,delayed release (DR/EC) 20 mg PO DAILY Referrals / Follow Up: [facility] Doctor,Out of [Primary Care Provider] - Disposition Disposition (needs filled in before D/C Order can be placed): Home, Self Care Charges/Coding Visit Charges Inpatient E&M: 50595 Disch Hosp
== END 2024-09-20 11:10 | disposition home or self-care (01) | DRG 775 ==
LOC: ED 19:13 → MS3 20:13
PROVIDERS: Physician Assistant; Admitting Provider Internal Medicine; Emergency Provider Emergency Medicine; Referring Provider Emergency Medicine
DX: F10.239 Alcohol dependence with withdrawal, unspecified (principal); K70.11 Alcoholic hepatitis with ascites; J44.9 Chronic obstructive pulmonary disease, unspecified; I10 Essential (primary) hypertension; E66.811 Obesity, class 1; M19.90 Unspecified osteoarthritis, unspecified site; G62.9 Polyneuropathy, unspecified; K21.9 Gastro-esophageal reflux disease without esophagitis; F17.210 Nicotine dependence, cigarettes, uncomplicated; Z68.30 Body mass index [BMI] 30.0-30.9, adult; Y90.8 Blood alcohol level of 240 mg/100 ml or more; N40.0 Benign prostatic hyperplasia without lower urinary tract symptoms; Z86.73 Personal history of transient ischemic attack (TIA), and cerebral infarction without residual deficits; F10.229 Alcohol dependence with intoxication, unspecified
CPT/HCPCS: 36415; 80053; 80307; 82077; 83735; 84100; 84443; 85025; 85610; 94640; 94668; 99252; 99283; A4216; G0463

== ENCOUNTER 2024-10-18 09:45 | Inpatient (IN) | payer MEDICAID, SELFPAY ==
[2024-10-18] VITALS (8 sets, daily range): BP systolic 112–133; BP diastolic 80–92; PULSE 96–118; RESP 14–20; TEMP 36.1–37.2; O2SAT 87–96; BMI 31.7; BMI 30.1
--- NOTE | 2024-10-18 10:15 | EX.ED.SAOD ---
HPI History of Present Illness Chief Complaint: ETOH Intox Informant: patient Onset/Context/Timing Onset: Month(s) Context: Gradual Onset Timing: Continuous Current Severity: Moderate Maximum Severity: Moderate Narrative Narrative: 58-year-old male history of alcohol abuse. Requesting detox. Says he typically drinks 6-8 tall boy beers a day. Denies any drug use. Typically does not drink hard liquor. He has been through detox multiple times and he has been through detox already this year. Drank on his way to the hospital today. Prior similar symptoms: Yes Recent Illness/Hospitalization: Yes PFSH PFS Medical History Obesity (BMI 30.0-34.9) Tobacco dependence Alcohol abuse Anxiety Sleep apnea Smoker Hypertension TIA (transient ischemic attack) EtOH dependence Home Medications ?Medication ?Instructions ?Recorded ?Last Taken ?Type gabapentin 300 mg capsule 600 mg PO TID 09/17/24 09/17/24 History melatonin 5 mg tablet 5 mg PO QHS 09/17/24 09/16/24 History omeprazole 20 mg tablet,delayed 20 mg PO DAILY 09/17/24 09/16/24 History release Allergy/AdvReac Type Severity Reaction Status Date / Time bee pollen Allergy Anaphylaxis Verified 10/18/24 09:47 nickel AdvReac Rash Verified 10/18/24 09:47 tramadol AdvReac Nausea Verified 10/18/24 09:47 Social History Smoking Status: Current every day smoker tobacco type: cigarettes ROS ROS ED ROS Narrative Denies recent illness. Constitutional Constitutional ED: Denies chills or fever(s) ENT ENT ED: Denies ear pain Cardiovascular Cardiovascular: Denies chest pain Respiratory/Chest Respiratory/Chest: Denies cough or dyspnea Gastrointestinal Gastrointestinal: Denies abdominal pain Genitourinary Genitourinary ED: Denies dysuria Musculoskeletal Musculoskeletal: Denies arthralgias Integumentary Denies abscess Neurologic Neurologic: Denies headache(s) Psychiatric Psychiatric: Denies anxiety Endocrine Endocrinology: Denies cold intolerance Hematologic/Lymphatic Hematologic/Lymphatic: Denies easy bleeding, easy bruising or lymphadenopathy Allergic/Immunologic Allergic/Immunologic ED: Denies mouth swelling, tongue swelling or urticaria EXAM Physical Exam Narrative Exam Narrative: 58-year-old male vital signs are stable afebrile. He is sitting upright in bed. He is acting intoxicated. H EENT exam pupils round reactive light. Smell of alcohol in his breath. Moist mucous membranes. Neck nontender. Lungs clear. Heart regular rhythm rate about 100 no murmur. Chest wall ribs nontender. Abdomen soft nontender. Moving all 4 extremities. Back nontender. Neurologically he is awake and alert. Answering questions following commands. Const Vital Signs: 10/18/24 09:46 10/18/24 10:00 Temperature 97 F L Temperature Source Temporal Pulse Rate 97 102 H Respiratory Rate 14 20 H Blood Pressure 133/92 H Blood Pressure Mean 105 Pulse Ox 91 87 Oxygen Delivery Method Room Air Room Air Positive well nourished, well developed and obese; Negative for cachectic, contractures or unkempt General Appearance ED: well developed and NAD; Negative for unkempt, cachectic, contractures or pallor Nutritional Appearance: obese; Negative for cachectic HEENT Reports moist mucous membranes atraumatic Eyes PERRL and EOMs intact bilaterally Neck no lymphadenopathy, supple and no JVD Lymph Lymphatic: no lymphadenopathy noted Chest Wall inspection of chest normal and palpation of chest normal Resp normal respiratory effort and clear to auscultation bilaterally Cardio regular rate, regular rhythm, S1 normal heart sound, S2 normal heart sound and no murmurs GI soft to palpation, non-tender, non-distended and no masses Back/Spine no CVA tenderness Neuro oriented x3 and CN's II-XII intact bilaterally Sensorium / Orientation: alert, oriented to person, oriented to place and oriented to time Speech: speech normal Motor Exam: strength 5/5 throughout Psych mental status grossly normal and thought process normal Appearance: Negative for unkempt Skin General Skin Exam: Negative for jaundice or pallor Lesions: no lesions Rashes: no rashes MDM MDM MDM Narrative Medical decision making narrative: 58-year-old male history of alcohol abuse requesting detox. Screening labs. He will be admitted for detox. History & Record Review Discussion w/independent historian: Patient Additional record(s) reviewed:: Prior inpatient record, Prior outpatient record, Prior ED visit and Prior labs Lab Data Attestation: I reviewed the patient's lab results. Lab results narrative: CBC shows white count 6.5. H&H is 16 and 47. Platelets 137. Electrolytes show a gap of 16. BUN and creatinine of 5 and 0.6. Glucose 111. AST of 55. Alk phos 137. Alcohol level 414. Labs: Laboratory Results - last 24 hr 10/18/24 10:10 WBC 6.5 RBC 4.95 Hgb 16.9 H Hct 47.4 MCV 95.8 H MCH 34.1 H MCHC 35.7 RDW Std Deviation 47.0 H RDW Coeff of [place] 13.4 Plt Count 137 L MPV 8.5 Immature Gran % (Auto) 0.300 Neut % (Auto) 61.0 Lymph % (Auto) 27.5 [place] % (Auto) 9.3 Eos % (Auto) 1.1 Baso % (Auto) 0.8 Absolute Neuts (auto) 4.0 Absolute Lymphs (auto) 1.80 Nucleated RBC % 0 Sodium 133 Potassium 4.1 Chloride 93 L Carbon Dioxide 24.3 Anion Gap 16 H BUN 5 Creatinine 0.61 L Estim Creat Clear Calc 165.44 Est GFR (MDRD) Non-Af 113 BUN/Creatinine Ratio 7.8 L Glucose 111 H Calcium 8.6 Total Bilirubin 0.35 AST 55 H ALT 42 Alkaline Phosphatase 137 H Total Protein 7.3 Albumin 4.1 Globulin 3.2 Albumin/Globulin Ratio 1.3 Ethyl Alcohol 414.0 H* Discharge Plan Dx/Rx/DC Orders Clinical Impression: Alcohol abuse, Admitted to alcohol detoxification center Disposition Disposition: Acute Care Hospital [facility]
--- OUTSIDE RECORDS SUMMARY | 2024-10-18 10:17 | XMS RPT_ITS | CCD ---
Author Organization [facility] Care Team Providers Care Head Tennis Coach Name Role Phone Lynda Rasheed Primary Care Provider Kathya GALVEZ, Lynda Primary Care Provider [phone] Radha Wylie RCP Unavailable Unavailabl e [facility] Doctor, Out of Primary Care Provider Lolita Call, Dr. Azar Referring Provider Dr. Doe Oh DO Emergency Provider Dr. Joon Vinson DO Admit Provider Unavail able Dr. Joon Vinson DO Attending Provider Unav ailable Dr. Joon Vinson DO Other Provider Unavail able Dr. Bryan Cox DO Attending Provider [phone] Bryan Cox DO Other Provider [facility] Doctor, Out of Primary Care Unavailable Doe Oh Referring Unavailable Joon Vinson Consulting Unavailable Joon Vinson Admitting Unavailable Bryan Cox Attending Unavailable Bryan Cox Consulting Unavailable Bryan Cox Attending Unavailable Doe Oh Referring Unavailable [facility] Doctor, Out of Primary Care Unavailable Joon Vinson Admitting Unavailable Joon Vinson Consulting Unavailable Joon Vinson Attending Unavailable SAURABH MORAN Attending Unavailable BRYAN RODRIGUEZ Consulting Unavailable SHELLY CRUZ Admitting Unavailable LISHNEVSKI, LYNDA Primary Care Unavailable GOYO MELARA Attending Unavailable LISHNEVSKI, LYNDA Primary Care Unavailable JONATAN MCKEON Attending Unavailable BRYAN RODRIGUEZ Admitting Unavailable LISHNEVSKI, LYNDA Primary Care Unavailable LUIS BRANCH Attending Unavailable LUIS BRANCH Admitting Unavailable LISHNEVSKI, LYNDA Primary Care Unavailable VELLANKI, JONATAN Attending Unavailable VELLANKI, JONATAN Admitting Unavailable LISHNEVSKI, LYNDA Primary Care Unavailable BRYAN RODRIGUEZ Unavailable REDD TEIXEIRA Attending Unavailable BORA, JOHN Admitting Unavailable LISHNEVSKI, LYNDA Primary Care Unavailable LISHNEVSKI, LYNDA Primary Care Unavailable LUIS BRANCH Attending Unavailable LISHNEVSKI, LYNDA Primary Care Unavailable LISHNEVSKI, LYNDA Attending Unavailable LISHNEVSKI, LYNDA Primary Care Unavailable LISHNEVSKI, LYNDA Referring Unavailable MYRA ADRDEN Attending Unavailable LISHNEVSKI, LYNDA Primary Care Unavailable LISHNEVSKI, LYNDA Attending Unavailable LISHNEVSKI, LYNDA Primary Care Unavailable LISHNEVSKI, LYNDA Attending Unavailable LISHNEVSKI, LYNDA Primary Care Unavailable LISHNEVSKI, LYNDA Attending Unavailable LISHNEVSKI, LYNDA Primary Care Unavailable LUIS BRANCH Attending Unavailable LISHNEVSKI, LYNDA Primary Care Unavailable LISHNEVSKI, LYNDA Referring Unavailable LISHNEVSKI, LYNDA Attending Unavailable LISHNEVSKI, LYNDA Primary Care Unavailable MYRA DARDEN Referring Unavailable MYRA DARDEN Attending Unavailable LISHNEVSKI, LYNDA Primary Care Unavailable LUIS BRANCH Attending Unavailable GOYO MELARA Attending Unavailable LISHNEVSKI, LYNDA Primary Care Unavailable CATALINO WADDELL Attending Unavailable LISHNEVSKI, LYNDA Primary Care Unavailable VELLANKI, JONATAN Attending Unavailable VELLANKI, JONATAN Admitting Unavailable LISHNEVSKI, LYNDA Primary Care Unavailable Allergies Allergy Classification Reported Allergen(s) Allergy Type Date of Onset Reaction(s) Facility Bee/Wasp/Ant Venom (3 sources) bee venom Substance Allergy 5 Swelling [facility] nickel sulfate (2 sources) nickel sulfate Drug Allergy 5 Rash [facility] Opioid Agonists (2 sources) traMADol Drug Allergy 5 Nausea And Vomiting [facility] (20 sources) bee venom Propensity to adverse reactions to drug 5 Swelling [place], [place] (11 sources) Honey bee venom Propensity to adverse reactions to drug 5 [place], [place] (20 sources) nickel sulfate Drug Allergy 5 Rash [place], [place] (20 sources) traMADol Drug Allergy 5 Nausea And Vomiting [place] (7 sources) Other Propensity to adverse reactions 5 Rash [place] (20 sources) Honey bee venom Propensity to adverse reactions 5 Swelling [facility] (2 sources) Bee pollen Drug Allergy 5 Anaphylaxis [facility] (2 sources) nickel Drug Allergy 5 Rash [facility] (1 source) Bee pollen Drug allergy (disorder) 5 [facility] Repository (1 source) nickel Drug Allergy 5 [facility] (1 source) traMADol Drug Allergy 5 [facility] NEGATED: Highlighted row has been ruled out!Unclassified (5 sources) Other Propensity to adverse reactions 5 Rash [facility] Medications Current Medications Medication Drug Class(es) Dates [...] 0900 cyclobenzaprine hydrochloride 10 mg oral tablet (7 sources) Muscle Relaxant Start: 08-14-2024 End: 10-13-2024 take 1 tablet by mouth at bedtime Cyclobenzaprine 10 mg tablet Active 10 mg PO AT BEDTIME September 17, 2024 12:00am Start: 06-05-2019 End: 06-15-2019 take 1 tablet [...] 15 tablet 0 03/08/2019 03/18/2019 Active gabapentin 300 mg oral capsule (20 sources) Anti-epileptic Agent Start: 08-14-2024 End: [...] 2 capsules by mouth three times daily Gabapentin 300 mg capsule Active 600 mg PO THREE TIMES A DAY September 17, 2024 12:00am Start: 01-21-2024 End: 01-24-2024 take 600 mg [...] Start: 02-06-2021 take 1 tablet by lizz three times daily gabapentin (NEURONTIN) 600 MG tablet Take 1 tablet by mouth 3 times daily for 30 days. 90 tablet 3 02/06/2021 Active Start: 10-17-2020 take 1 tablet by lizz three times daily gabapentin (NEURONTIN) 600 MG tablet Take 1 tablet by mouth 3 times daily for 30 days. 90 tablet 3 10/17/2020 Active Start: 08-22-2020 End: 09-21-2020 take 1 tablet by mouth three times daily gabapentin (NEURONTIN) 600 MG tablet Take 1 tablet by mouth 3 times daily for 30 days. 90 tablet 1 08/22/2020 09/21/2020 Active Start: 03-07-2017 End: 09-17-2024 take 600 mg by mouth three times daily 600 mg, Oral, 3 TIMES DAILY, First dose on Sat06/09/20 at 1400 lidocaine 0.05 mg/mg medicated patch (13 sources) [...] off. 30 patch 0 03/17/2019 08/19/2019 Discontinued melatonin 5 mg oral tablet (20 sources) Start: 09-17-2024 take 1 tablet by mouth at bedtime Melatonin 5 mg tablet Active 5 mg PO AT BEDTIME September 17, 2024 12:00am Start: 04-10-2024 End: 04-12-2024 10 mg, Oral, [...] by mouth. 0 09/28/2021 08/01/2022 Discontinued (Reorder) methylPREDNISolone 4 mg oral tablet (3 sources) Corticosteroid Start: 06-16-2024 End: 06-23-2024 methylPREDNISolone (Medrol Dospak) 4 MG tablets Indications: Lumbar back pain Take as directed on package. 21 tablet 06/16/2024 06/23/2024 Active Multivitamin (Daily Multi-Vitamin) tablet (1 source) Start: 09-20-2024 Multivitamin (Daily Multi-Vitamin) tablet Active 1 {tbl} PO DAILY September 20, 2024 12:00am [id number]. No prescription required. multivitamin 1 tablet (1 source) Start: 06-07-2021 take 1 tablet by mouth once daily 1 tablet, Oral, DAILY, First dose on Sat06/07/21 at 0900 omeprazole 20 mg delayed release oral tablet (7 sources) Proton Pump Inhibitor Start: 09-17-2024 take 1 tablet by mouth once daily Omeprazole 20 mg tablet,delayed release (DR/EC) Active 20 mg PO DAILY September 17, 2024 12:00am Start: 03-26-2021 End: 06-09-2021 take 1 capsule by mouth once daily before breakfast omeprazole (PRILOSEC) 20 MG delayed release capsule Indications: Elevated LFTs , Lombardo's esophagus without dysplasia Take 1 capsule by mouth every morning (before breakfast) 30 capsule 3 03/26/2021 06/09/2021 Discontinued (Stop Taking at Discharge) Start: 08-26-2020 take 1 capsule by mo ut once daily before breakfast omeprazole (PRILOSEC) 20 MG delayed release capsule Indications: Elevated LFTs , Lombardo's esophagus without dysplasia Take 1 capsule by mouth every morning (before breakfast) 30 capsule 3 08/26/2020 Active End: 06-10-2020 take 1 capsule by mouth once daily omeprazole (PRILOSEC) 20 MG delayed release capsule Take 20 mg by mouth daily 0 06/10/2020 Discontinued (Stop Taking at Discharge) ondansetron (ZOFRAN-ODT) disintegrating tablet 4 mg (2 sources) Start: 09-27-2021 ondansetron (Z OFRAN-ODT) disintegrating tablet 4 mg Start: 06-07-2021 ondansetron [...] Promethazine (1 source) Phenothiazine Start: 06-09-2020 promethazine ( PHENERGAN) tablet 12.5 mg sodium chloride flush 0.9 % injection 3 mL (1 source) Start: 06-06-2021 sodium chlorid e flush 0.9 % injection 3 mL Completed/Discontinued Medications Medication Drug Class(es) Dates Sig [...] headaches, fever, severe pain (7-10), Starting on e 06/02/24 at 1926 Start: 05-07-2024 End: 05-10-2024 take 1 tablet by mouth every six hours as needed for pain and pain and headache and fever 650 mg, Oral, Every 6 hours PRN, mild pain (1-3), moderate pain (4-6), headaches, fever, severe pain (7-10), Starting on Mounika 05/07/24 at 2142 Start: 11-28-2023 End: 11-30-2023 take [...] dose, Coverage: Varicella zoster, Infection Site: Mucocutaneous [id number] 200 actuat albuter ol 0.09 mg/actuat metered [...] or shortness of breath. 3 each 1 05/20/2024 Active Start: 07-29-2023 End: 07-31-2023 take [...] of breath, Starting on Sat07/09/23 at 0233 Start: 05-22-2023 End: 05-23-2023 albuterol [...] 09/25/2022 12/07/2022 Discontinued (Reorder) Start: 09-10-2022 End: 06-16-2023 take 2 puff(s) by inhalation every six [...] 4 HOURS PRN, Shortness of Breath, Starting [facility] 06/09/20 at 1230 aluminum & magnesium hydroxide-simethicone (Mylanta) [...] mg, Oral, Nightly PRN, sleep, Starting on 01/20/24 at 2250, 2nd line after melatonin 0.4 ml enoxaparin sodium 100 mg/ml prefilled syringe (4 sources) Low Molecular Weight Heparin Start: 11-28-2023 End: 11-30-2023 inject 40 mg by subcutaneous injection every twenty-four hours 40 mg, SubCUTAneous, Every 24 hours scheduled (Daily), First dose on Mounika 8/29/24 at 0900, Indication of Use: Prophylaxis-DVT/PE, Indications: [...] End: 09-14-2022 famotidine (Pepcid) tablet 20 mg finasteride 5 mg oral tablet (2 sources) 5-alpha Reductase Inhibitor Start: 07-20-2017 End: 09-17-2024 take 1 tablet by mouth once daily Finasteride 5 MG tablet Discontinued 5 mg PO DAILY July 20, 2017 12:00am September 17, 2024 7:06pm folic acid 1 mg oral tablet (20 [...] acid (FO LVITE) tablet 1 mg Start: 07-20-2017 End: 09-17-2024 take 1 mg by mouth once daily 1 mg, Oral, DAILY, First dose on Sat06/07/21 at 0900 hydrALAZINE hydrochloride 10 mg oral tablet (6 [...] PRN, anxiety, Starting on Sat09/10/22 at 1559 ibuprofen 800 mg oral tablet (20 sources) Nonsteroidal Anti-inflammatory Drug Start: 08-06-2024 End: 08-14-2024 take 1 tablet by mouth every eight hours as needed for pain ibuprofen 800 MG tablet Take 1 tablet (800 mg) by mouth every 8 hours as needed for moderate pain (4-6) for up to 6 days. 18 tablet 08/06/2024 11:46 AM EDT 08/06/2024 08/14/2024 Start: 08-03-2024 End: 08-06-2024 take 1 tablet [...] for Pain 20 tablet 0 03/08/2019 Active iopamidol (Isovue-370) 76 % injection 100 mL [...] at 1926, For 1 dose, Please notify optimization consultant attending if this has to be utilized for a seizure. For IV doses dilute dose with 1ml NS. Start: 05-07-2024 End: 05-10-2024 inject 1 mL by intramuscular injection once as needed 2 mg, IntraMUSCular, Once PRN, seizures, Starting on Sat05/07/24 at 2142, For 1 dose, Please notify optimization consultant attending if this has to be utilized for a seizure. For IV doses dilute dose with 1ml NS. Start: 01-20-2024 End: 01-20-2024 2 mg, IntraMUSCular, Once, O n 01/20/24 at 2120, For 1 dose, For IV doses dilute dose with 1ml NS. Start: 11-28-2023 End: 11-28-2023 take 2 mg by mouth once 2 mg, Oral, Once, On 10/31 at 0205, For 1 dose Start: 11-28-2023 End: 11-30-2023 LORazepam (Ativan) tablet 1 mg Start: 07-27-2023 End: 07-27-2023 LORazepam (Ativan) injection 2 mg Start: 07-08-2023 End: 07-08-2023 2 mg, IntraVENous, Once, On 07/08/23 at 1930, For 1 dose, For IV [...] 30 mL 50 ml magnesium sulfate 40 mg/ml injection (1 source) Start: 06-07-2021 End: 06-07-2021 magnesium sulfate 2000 mg in 50 mL IVPB premix methocarbamol 500 mg oral tablet (4 sources) [...] 1 tablet by mouth. 0 06/07/2021 Active Multivitamin,Gf-Ljwy-Aloqddk s 1 TABLET tablet (2 sources) Start: 07-20-2017 End: 09-17-2024 take 1 tablet by mouth once daily at mealtime Multivitamin,Kd-Egtx-Ctfmqkvy 1 TABLET tablet Discontinued 1 {tbl} PO DAILY WITH MEALS July 20, 2017 12:00am September 17, 2024 7:06pm 1 ml naloxone hydrochloride 0.4 mg/ml injection (2 sources) Opioi d Antag onist Start: 08-04-2024 End: 08-06-2024 0.4 mg, IntraVENous, Every 5 min PRN, opioid reversal, respiratory depression, Starting on Sat08/04/24 at 0840, +++ For RR naltrexone 380 mg injection (20 sources) Opioi d Antag onist Start: 06-04-2024 End: 08-06-2024 naltrexone ER (Vivitrol) injection Indications: Severe alcohol use disorder (HCC) Inject 4 mL (380 mg) into the buttocks every 28 (twenty-eight) days. 06/04/2024 08/06/2024 Discontinued (Stop taking at discharge) Start: 06-04-2024 380 mg, IntraM USCular, Once, On Sat06/04/24 at 1200, For 1 dose, Follow Package [...] mouth once 50 mg, Oral, Once, On 09/23 at 1100, For 1 dose Start: 06-04-2024 End: 06-04-2024 take 50 mg by mouth once 50 mg, Oral, Once, On 09/23 at 1100, For 1 dose Start: 05-10-2024 [...] sodium chloride 0.9 % 100 mL infusion ondansetron 4 mg disintegrating oral tablet (20 [...] nausea, vomiting, Starting on Sat05/07/24 at 2142 Start: 04-09-2024 End: 04-09-2024 4 mg, IntraVENous, Once, On Mounika 04/09/24 at 2030, For 1 dose Start: 01-20-2024 End: 01-20-2024 take 8 mg by mouth once 8 mg, Oral, Once, On Sat at 1745, For 1 dose Start: 07-27-2023 [...] mg oxyCODONE hydrochloride 5 mg oral tablet (17 sources) Opioid Agonist Start: 08-10-2024 End: 08-21-2024 [...] mouth once 97.2 mg, Oral, Once, On Sat05/07/24 at 2055, For 1 dose, Prior to transfer Start: [...] Oral, EVERY 4 HOURS, First dose on Mounika 06/09/20 at 1300 OK to HOLD if [...] (Luminal) injection 65 mg polyethylene glycol 3350 16480 mg powder for oral solution (10 sources) [...] mL/hr, Administer over 1 Hours, Once, On Mounika 04/09/24 at 2030, For 1 dose Start: 01-20-2024 End: 01-24-2024 5 mL, IntraVENous, As needed , line care, Starting on 01/20/24 at 2256 Start: 01-20-2024 End: 01-20-2024 1,000 [...] Mounika 06/09/20 at 1330, For 1 dose tamsulosin hydrochloride 0.4 mg oral capsule (2 sources) alpha-Adrenerg ic Ghulam Start: 07-20-2017 End: 09-17-2024 take 1 capsule by mouth once daily Tamsulosin 0.4 MG capsule Discontinued 0.4 mg PO DAILY@1730 July 20, 2017 12:00am September 17, 2024 7:06pm therapeutic multivitamin-minerals (Theragran-M) tablet (8 sources) Start: [...] irst dose on Sat08/03/24 at 1910 Start: 09-26-2021 End: 09-27-2021 thiamine tablet 100 mg Start: 06-07-2021 take 100 mg by mouth three times daily 100 mg, Oral, 3 times daily, First dose on Sat06/07/21 at 0900 Start: 06-06-2021 End: 06-07-2021 thiamine (B-1) injection 100 mg Start: 06-09-2020 100 mg, Intrav enous, DAILY, First dose on Mounika 06/09/20 at 1330 Start: 07-20-2017 End: 09-17-2024 take 1 tablet by mouth once daily Thiamine Mononitrate (Vitamin B1) 100 MG tablet Take 1 tablet (100 mg) by mouth daily. 90 tablet 0 09/25/2022 12/07/2022 Discontinued (Reorder) traZODone hydrochloride 50 mg oral tablet (18 sources) Serotonin Reuptake Inhibitor Start: 08-03-2024 End: 08-06-2024 take 50 mg by mouth once daily as needed for sleep 50 mg, Oral, Nightly PRN, sleep, Starting on Sat08/03/24 at 1903 Start: 06-02-2024 End: 06-04-2024 take 100 mg by mouth once daily as needed for sleep 100 mg, Oral, Nightly PRN, sleep, Starting on Tu06/02/24 at 1927 Start: 05-07-2024 End: 05-10-2024 take 100 mg by mouth once daily as needed for sleep 100 mg, Oral, Nightly PRN, sleep, Starting on Mounika 05/07/24 at 2142 Start: 04-10-2024 End: 04-12-2024 take [...] PRN, sleep, Starting on Sat09/10/22 at 1559 triamcinolone acetonide 0.0005 mg/mg topical ointment (2 sources) Corticosteroid Start: 09-12-2018 End: 03-08-2019 triamcinolone (KENALOG) 0.05 % OINT ointment Apply topically 2 times daily 430 g 1 09/12/2018 03/08/2019 Discontinued (LIST CLEANUP) valACYclovir 1000 mg oral tablet (10 sources) Herpesvirus Nucleoside Analog DNA Polymerase Inhibitor, Herpes Simplex Virus Nucleoside Analog DNA Polymerase Inhibitor, Herpes Zoster Virus Nucleoside Analog DNA Polymerase Inhibitor Start: 08-06-2024 End: 08-14-2024 take 1 tablet by mouth three times daily valACYclovir (Valtrex) 1 g tablet Take 1 tablet (1,000 mg) by mouth 3 times daily for 5 days. 15 tablet 08/06/2024 11:46 AM EDT 08/06/2024 08/14/2024 Start: 08-05-2024 End: 08-06-2024 take 1000 mg by mouth three times daily 1,000 mg, Oral, 3 times daily, First dose on Sat08/05/24 at 1400, For 6 days, Coverage: Varicella zoster, Infection Site: Other, Specify: right flank varenicline 0.5 mg oral tablet (5 sources) [...] Problem Classification Problem Date Documented Date Episodic/Chronic Acute cerebrovascular disease (2 sources) Cerebrovascular accident; Translations: [Cerebral infarction, unspecified] 03-07-2017 Chronic Alcohol-related disorders (20 sources) Alcohol withdrawal syndrome; Translations: [Alcohol dependence] Onset: 08-31-2019 Resolved: 08-04-2024 08-31-2019 Chronic Allergic reactions (1 source) Eczema; Translations: [Eczema, unspecified type] Episodic Anxiety disorders (20 sources) Anxiety; Translations: [Anxiety disorder, unspecified] Onset: 12-01-2014 12-01-2014 Chronic Chronic obstructive pulmonary disease and bronchiectasis (4 sources) Pulmonary emphysema; Translations: [Emphysema, unspecified] Onset: 09-24-2024 02-28-2024 Chronic Diabetes mellitus without complication (4 [...] body region, initial encounter] 07-01-2024 Episodic Other liver diseases (20 sources) [...] Translations: [Pain in left shoulder] Episodic Other nutritional; endocrine; and metabolic disorders (4 sources) Obese class I; Translations: [Class 1 obesity] 09-17-2024 Chronic Other skin disorders (2 sources) Localized swelling, mass and lump, neck; Translations: [Localized swelling, mass and lump, neck] Episodic Other upper respiratory infections (1 source) Acute pharyngitis; Translations: [Acute pharyngitis, unspecified etiology] Episodic Spondylosis; intervertebral disc disorders; other back problems (14 sources) Chronic low back pain; Translations: [Sciatica] Episodic Sprains and strains (2 sources) Low back strain; Translations: [Strain of muscle, fascia and tendon of lower back, initial encounter] Episodic Substance-related disorders (20 sources) Cigarette smoker ; Translations: [Nicotine dependence, cigarettes, uncomplicated] Onset: 06-10-2020 06-10-2020 Chronic Substance-related disorders (2 sources) Cigarette smoker ; Translations: [Cigarette smoker] Onset: 06-10-2020 06-10-2020 Episodic Unclassified (4 sources) Readiness finding 09-17-2024 Unclassified (1 source) Obesity, class 1; Translations: [Obesity, class 1] Onset: 09-24-2024 Unclassified (1 source) Alcohol use, unspecified with [...] 05-08-2024 10-01-2019 Episodic Cardiac dysrhythmias (20 sources) Tachycardia; Translations: [Tachycardia, unspecified] Onset: 08-16-2017 02-09-2023 Episodic Diabetes mellitus with [...] region, initial encounter] Onset: 07-01-2024 Episodic Other injuries and conditions due [...] pulmonary nodule; Translations: [Solitary pulmonary nodule] Onset: 02-28-2024 Episodic Other non-traumatic joint disorders (1 source) [...] Resolved: 02-09-2023 09-10-2022 Episodic Residual codes; unclassified (15 sources) Other specified conditions influencing health status; Translations: [Alcohol use disorder] Onset: 09-10-2022 Resolved: 02-09-2023 02-09-2023 Episodic Superficial injury; contusion (5 sources) Contusion of left middle finger; Translations: [Contusion of left middle finger without damage to nail, initial encounter] Onset: 07-01-2024 03-19-2023 Episodic Unclassified (3 sources) Patient encounter status [...] Test Name Value Interpretation Reference Range Facility Progress Noteon 09-29-2024 [facility] Phosphoruson 09-19-2024 Phosphate [Mass/Vol] 3.9 mg/dL Normal 2.7-4.5 [facility] Comment on above: Performed By: #### L [id number] #### [facility] [address] [place], [place] [address], [address] Absolute lymphocyte countOrd ered By: Joon Quintero on 09-18-2024 Lymphocytes Auto (Unsp spec) [#/Vol] 1.21 10*3/uL 0.83-4.51 [facility] Absolute neutrophil countOrd ered By: Joon Quintero on 09-18-2024 Neutrophils (Bld) [#/Vol] 2.2 10*3/uL 2.0-7.7 [facility] Alcohol, Blood (Medical)-Ser umon 09-18-2024 SERUM ETOH 119.0 mg/dL High <=10.0 [facility] Comment on above: Result Comment: This test is for medical purposes only. The legal definition of intoxication varies according to local law. Performed By: #### L [id number] ####[facility] [id number] [place], [address] Anion gap in Serum or Plasma Ordered By: Joon Quintero on 09-18-2024 Anion gap [Moles/Vol] 10 mmol/L 5- [facility] Automated lymphocyte count a s percentage of total leukocytesOrdered By: Joon Quintero on 09-18-2024 Lymphocytes/100 WBC Auto (Unsp spec) 28.3 % [facility] BUN/creatinine ratioOrdered By: Joon Quintero on 09-18-2024 Urea nitrogen/Creatinine [Mass ratio] 5.9 mg/mg Low - [facility] Basophil percentageOrdered B y: Joon Quintero on 09-18-2024 Basophils/100 WBC (Bld) 1.2 % High 0-1 [facility] Bilirubin, totalOrdered By: Joon Quintero on 09-18-2024 Bilirubin [Mass/Vol] 0.29 mg/dL 0.00-1.30 [facility] CBC W/Diff, Automatedon 08-31 Absolute Lymph 1.21 X10 3/uL Normal 0.83-4.51 [facility] Comment on above: Performed By: #### L [id number], [id number], L100.0100, L500.4050 #### [facility] [address] [place], [address] Absolute Neut 2.2 X10 3/uL Normal 2.0-7.7 [facility] Comment on above: Performed By: #### L [id number], [id number], L100.0100, L500.4050 #### [facility] [address] [place], [address] Basophils/100 WBC (Bld) 1.2 % High 0-1 [facility] Comment on above: Performed By: #### L [id number], [id number], L100.0100, [id number] #### [facility] [address] [place], [address] Eosinophils/100 WBC (Bld) 5.2 % High 0-5 [facility] Comment on above: Performed By: #### L [id number], [id number], L100.0100, [id number] #### [facility] [address] [place], [address] Erythrocyte distribution width (RBC) [Ratio] 13.6 % Normal 11.6-14.6 [facility] Comment on above: Performed By: #### L [id number], [id number], L100.0100, [id number] #### [facility] [address] [place], [address] Hematocrit (Bld) [Volume fraction] 47.3 % Normal 40-54 [facility] Comment on above: Performed By: #### L [id number], [id number], L100.0100, [id number] #### [facility] [address] [place], [address] Hemoglobin (Bld) [Mass/Vol] 16.2 g/dL Normal 13.0-16.5 [facility] Comment on above: Performed By: #### L [id number], [id number], L100.0100, [id number] #### [facility] [address] [place], [address] IG% 0.200 Normal 0.0-0.9 [facility] Comment on above: Result Comment: IG% - Immature Granulocytes (promyelocytes, myelocytes and metamyelocytes) > 1% indicates that a LEFT SHIFT is Present. Performed By: #### L [id number], [id number], L100.0100, [id number] #### [facility] [address] [place], [address] Lymphocytes/100 WBC (Bld) 28.3 % Normal 19-41 [facility] Comment on above: Performed By: #### L [id number], [id number], L100.0100, [id number] #### [facility] [facility] [address] [place], [address] MCH (RBC) [Entitic mass] 33.9 pg High 27.0-32.0 [facility] Comment on above: Performed By: #### L 501.2300, L501.9520, L100.0100, L500.4050 #### [facility] [address] [place], [address] MCHC (RBC) [Mass/Vol] 34.2 g/dL Normal 32-36 [facility] Comment on above: Performed By: #### L 501.2300, L501.9520, L100.0100, L500.4050 #### [facility] [address] [place], [address] MCV (RBC) [Entitic vol] 99.0 fL High 80-94 [facility] Comment on above: Performed By: #### L 501.2300, L501.9520, L100.0100, L500.4050 #### [facility] [address] [place], [address] Monocytes/100 WBC (Bld) 14.1 % High 0-10 [facility] Comment on above: Performed By: #### L 501.2300, L501.9520, L100.0100, L500.4050 #### [facility] [address] [place], [address] Neutrophils/100 WBC (Bld) 51.0 % Normal 47-70 [facility] Comment on above: Performed By: #### L 501.2300, L501.9520, L100.0100, L500.4050 #### [facility] [address] [place], [address] Nucleated RBC (Bld) [#/Vol] 0 10*3/uL Normal 0-5 [facility] Comment on above: Performed By: #### L 501.2300, L501.9520, L100.0100, L500.4050 #### [facility] [address] [place], [address] Platelet mean volume (Bld) [Entitic vol] 8.2 fL Normal 6.2-12.0 [facility] Comment on above: Performed By: #### L 501.2300, L501.9520, L100.0100, L500.4050 #### [facility] [address] [place], [address] Platelets (Bld) [#/Vol] 266 10*3/uL Normal 150-450 [facility] Comment on above: Performed By: #### L 501.2300, L501.9520, L100.0100, L500.4050 #### [facility] [address] [place], [address] RBC (Bld) [#/Vol] 4.78 10*6/uL Normal 4.6-6.2 [facility] Comment on above: Performed By: #### L 501.2300, L501.9520, L100.0100, L500.4050 #### [facility] [address] [place], [address] RDW SD 49.9 fl High 35.1-43.9 [facility] Comment on above: Performed By: #### L 501.2300, L501.9520, L100.0100, L500.4050 #### [facility] [address] [place], [address] WBC (Bld) [#/Vol] 4.3 10*3/uL Low 4.4-11.0 [facility] Comment on above: Performed By: #### L 501.2300, L501.9520, L100.0100, L500.4050 #### [facility] [address] [place], [address] Carbon dioxide, total [Moles /volume] in Central venous bloodOrdered By: Joon Quintero on 09-18-2024 CO2 [Moles/Vol] 28.4 mmol/L 21.0-32.0 [facility] Chloride assayOrdered By: Sawyer Quintero on 09-18-2024 Chloride [Moles/Vol] 99 mmol/L 98-108 [facility] Comprehensive Metabolic Prof ilon 09-18-2024 Albumin [Mass/Vol] 3.8 g/dL Normal 3.5-5.0 [facility] Comment on above: Performed By: #### L 501.2300, L501.9520, L100.0100, L500.4050 #### [facility] [address] [place], [address] Albumin/Globulin [Mass ratio] 1.3 {ratio} Normal 0.9-2.4 [facility] Comment on above: Performed By: #### L 501.2300, L501.9520, L100.0100, L500.4050 #### [facility] [address] [place], [address] ALK PHOS 103 U/L Normal 40-129 [facility] Comment on above: Performed By: #### L 501.2300, L501.9520, L100.0100, L500.4050 #### [facility] [address] [place], [address] ALT [Catalytic activity/Vol] 54 U/L High <=46 [facility] Comment on above: Performed By: #### L 501.2300, L501.9520, L100.0100, L500.4050 #### [facility] [address] [place], [address] AST [Catalytic activity/Vol] 50 U/L High <=37 [facility] Comment on above: Performed By: #### L 501.2300, L501.9520, L100.0100, L500.4050 #### [facility] [address] [place], [address] Bilirubin [Mass/Vol] 0.29 mg/dL Normal 0.00-1.30 [facility] Comment on above: Performed By: #### L 501.2300, L501.9520, L100.0100, L500.4050 #### [facility] [address] [place], [address] BUN/CRE 5.9 RATIO Low 10-20 [facility] Comment on above: Performed By: #### L 501.2300, L501.9520, L100.0100, L500.4050 #### [facility] [address] [place], [address] Calcium [Mass/Vol] 8.2 mg/dL Normal 7.6-11.0 [facility] Comment on above: Performed By: #### L 501.2300, L501.9520, L100.0100, L500.4050 #### [facility] [address] [place], [address] Chloride [Moles/Vol] 99 mmol/L Normal 98-108 [facility] Comment on above: Performed By: #### L 501.2300, L501.9520, L100.0100, L500.4050 #### [facility] [address] [place], [address] CO2 [Moles/Vol] 28.4 mmol/L Normal 21.0-32.0 [facility] Comment on above: Performed By: #### L 501.2300, L501.9520, L100.0100, L500.4050 #### [facility] [address] [place], [address] Creatinine [Mass/Vol] 0.63 mg/dL Low 0.70-1.20 [facility] Comment on above: Performed By: #### L 501.2300, L501.9520, L100.0100, L500.4050 #### [facility] [address] [place], [address] ECRCL 156.63 ml/min Normal 50-250 [facility] Comment on above: Performed By: #### L 501.2300, L501.9520, L100.0100, L500.4050 #### [facility] [address] [place], [address] GAP 10 Normal 5-15 [facility] Comment on above: Performed By: #### L 501.2300, L501.9520, L100.0100, L500.4050 #### [facility] [address] [place], [address] GFR/1.73 sq M.predicted among non-blacks MDRD (S/P/Bld) [Vol rate/Area] 112 mL/min/{1.73_m2} Normal >60 [facility] Comment on above: Result Comment: mL/m in/1.73m2 CKD-EPI Creatinine Equation (2020) Performed By: #### L 501.2300, L501.9520, L100.0100, L500.4050 #### [facility] [address] [place], [address] Globulin (S) [Mass/Vol] 2.9 g/dL Normal 2.2-4.2 [facility] Comment on above: Performed By: #### L 501.2300, L501.9520, L100.0100, L500.4050 #### [facility] [address] [place], [address] Glucose [Mass/Vol] 91 mg/dL Normal 70-99 [facility] Comment on above: Performed By: #### L 501.2300, L501.9520, L100.0100, L500.4050 #### [facility] [address] [place], [address] Potassium [Moles/Vol] 4.5 mmol/L Normal 3.3-5.1 [facility] Comment on above: Performed By: #### L 501.2300, L501.9520, L100.0100, L500.4050 #### [facility] [address] [place], [address] Sodium [Moles/Vol] 138 mmol/L Normal 133-145 [facility] Comment on above: Performed By: #### L 501.2300, L501.9520, L100.0100, L500.4050 #### [facility] [address] [place], [address] T PROT 6.7 g/dL Normal 5.9-8.4 [facility] Comment on above: Performed By: #### L 501.2300, L501.9520, L100.0100, L500.4050 #### [facility] [address] [place], [address] Urea nitrogen [Mass/Vol] 4 mg/dL Normal 4-19 [facility] Comment on above: Performed By: #### L 501.2300, L501.9520, L100.0100, L500.4050 #### [facility] [address] [place], [address] Eosinophil percentageOrdered By: Joon Quintero on 09-18-2024 Eosinophils/100 WBC (Bld) 5.2 % High 0-5 [facility] Erythrocyte distribution wid th ratioOrdered By: Joon Quintero on 09-18-2024 Erythrocyte distribution width (RBC) [Ratio] 13.6 % 11.6-14.6 [facility] Erythrocyte distribution wid th standard deviationOrdered By: Joon Quintero on 09-18-2024 Erythrocyte distribution width (RBC) [Ratio] 49.9 fl High 35.1-43.9 [facility] Glomerular filtration rate ( GFR) estimation/1.73 sq m using serum, plasma, or whole bOrdered By: Joon Quintero on 09-18-2024 GFR/1.73 sq M.predicted among non-blacks MDRD (S/P/Bld) [Vol rate/Area] 112 mL/min/{1.73_m2} >60 [facility] Comment on above: mL/min/1.73m2 CKD-EP I Creatinine Equation (2020) Hematocrit Auto (Bld) [Volum e fraction]Ordered By: Joon Quintero on 09-18-2024 Hematocrit (Bld) [Volume fraction] 47.3 % 40-54 [facility] Hemoglobin measurementOrdere d By: Joon Quintero on 09-18-2024 Hemoglobin (Bld) [Mass/Vol] 16.2 g/dL 13.0-16.5 [facility] Immature granulocytes/100 WB C Auto (Bld)Ordered By: Joon Quintero on 09-18-2024 Immature granulocytes/100 WBC (Bld) 0.200 % 0.0-0.9 [facility] Comment on above: IG% - Immature Granu locytes (promyelocytes, myelocytes and metamyelocytes) > 1% indicates that a LEFT SHIFT is Present. Laboratory - Chemistry and C hemistry - challengeOrdered By: Joon Quintero on 09-18-2024 AST [Catalytic activity/Vol] 50 U/L High <38 [facility] MCV (mean corpuscular volume ) determinationOrdered By: Joon Quintero on 09-18-2024 MCV (RBC) [Entitic vol] 99.0 fL High 80-94 [facility] Mean corpuscular hemoglobin (MCH) determinationOrdered By: Joon Quintero on 09-18-2024 MCH (RBC) [Entitic mass] 33.9 pg High 27.0-32.0 [facility] Mean corpuscular hemoglobin concentration (MCHC) determinationOrdered By: Joon Quintero on 09-18-2024 MCHC (RBC) [Mass/Vol] 34.2 g/dL 32-36 [facility] Mean platelet volume determi nationOrdered By: Joon Quintero on 09-18-2024 Platelet mean volume (Bld) [Entitic vol] 8.2 fL 6.2-12.0 [facility] Monocyte percentageOrdered B y: Joon Quintero on 09-18-2024 Monocytes/100 WBC (Bld) 14.1 % High 0-10 [facility] Neutrophil percentageOrdered By: Joon Quintero on 09-18-2024 Neutrophils/100 WBC (Bld) 51.0 % 47-70 [facility] Nucleated red blood cell per centageOrdered By: Joon Quintero on 09-18-2024 Nucleated RBC/100 WBC (Bld) [Ratio] 0 % 0-5 [facility] Phosphoruson 09-18-2024 Phosphate [Mass/Vol] 4.6 mg/dL High 2.7-4.5 [facility] Comment on above: Performed By: #### L 501.2300, L501.9520, L100.0100, L500.4050 #### [facility] [address] [place] [address], [id number] Platelet countOrdered By: Sawyer Quintero on 09-18-2024 Platelets (Bld) [#/Vol] 266 10*3/uL 150-450 [facility] Potassium measurement (mass/ volume)Ordered By: Joon Quintero on 09-18-2024 Potassium (Unsp spec) [Mass/Vol] 4.5 mmol/L 3.3-5.1 [facility] RBC Auto (Bld) [#/Vol]Ordere d By: Joon Quintero on 09-18-2024 RBC (Bld) [#/Vol] 4.78 10*6/uL 4.6-6.2 [facility] Serum creatinine measurement (mass/volume)Ordered By: Joon Quintero on 09-18-2024 Creatinine [Mass/Vol] 0.63 mg/dL Low 0.70-1.20 [facility] Serum globulin measurementOr dered By: Joon Quintero on 09-18-2024 Globulin (S) [Mass/Vol] 2.9 g/dL 2.2-4.2 [facility] Serum glucose measurement (m ass/volume)Ordered By: Joon Quintero on 09-18-2024 Glucose [Mass/Vol] 91 mg/dL 70-99 [facility] Serum or plasma alanine kendrick otransferase (ALT) measurementOrdered By: Joon Quintero on 09-18-2024 ALT [Catalytic activity/Vol] 54 U/L High <47 [facility] Serum or plasma albumin chan urement (mass/volume)Ordered By: Joon Quintero on 09-18-2024 Albumin [Mass/Vol] 3.8 g/dL 3.5-5.0 [facility] Serum or plasma albumin/glob ulin mass ratioOrdered By: Joon Quintero on 09-18-2024 Albumin/Globulin [Mass ratio] 1.3 {ratio} 0.9-2.4 [facility] Serum or plasma alkaline reynold sphatase measurementOrdered By: Joon Quintero on 09-18-2024 ALP [Catalytic activity/Vol] 103 U/L 40-129 [facility] Serum or plasma calcium chan urement (mass/volume)Ordered By: Joon Quintero on 09-18-2024 Calcium [Mass/Vol] 8.2 mg/dL 7.6-11.0 [facility] Serum or plasma ethanol chan urement (mass/volume)Ordered By: Joon Quintero on 09-18-2024 Ethanol [Mass/Vol] 119.0 mg/dL High <10.1 [facility] Comment on above: This test is for med ical purposes only. The legal definition of intoxication varies according to local law. Serum or plasma urea nitroge n measurement (mass/volume)Ordered By: Joon Quintero on 09-18-2024 Urea nitrogen [Mass/Vol] 4 mg/dL 4-19 [facility] Sodium levelOrdered By: Amor Quintero on 09-18-2024 Sodium [Moles/Vol] 138 mmol/L 133-145 [facility] TSH DL <= 0.005 mIU/L QnOrde red By: Joon Quintero on 09-18-2024 TSH Qn 2.810 uIU/mL 0.300-4.200 [facility] Thyroid Stim Hormone (TSH)on 09-18-2024 TSH 2.810 uIU/mL Normal 0.300-4.200 [facility] Comment on above: Performed By: #### L 501.2300, L501.9520, L100.0100, L500.4050 #### [facility] [address] [place], [place], [id number] Total proteinOrdered By: Frantz Andrewso on 09-18-2024 Protein [Mass/Vol] 6.7 g/dL 5.9-8.4 [facility] White blood cell (WBC) count Ordered By: Joon Leon on 09-18-2024 WBC (Bld) [#/Vol] 4.3 10*3/uL Low 4.4-11.0 [facility] Absolute lymphocyte countOrd ered By: Anat Ni on 09-17-2024 Lymphocytes Auto (Unsp spec) [#/Vol] 2.26 10*3/uL 0.83-4.51 [facility] Absolute neutrophil countOrd ered By: Anat Ni on 09-17-2024 Neutrophils (Bld) [#/Vol] 3.8 10*3/uL 2.0-7.7 [facility] Alcohol, Blood (Medical)-Ser umon 09-17-2024 SERUM ETOH 368.0 mg/dL Invalid Interpretation Code <=10.0 [facility] Comment on above: Result Comment: Crit ical Result(s) Called LSPARR at: 1942 by: CHRISTA??Results read back by same. This test is for medical purposes only. The legal definition of intoxication varies according to local law. Performed By: #### L 501.9100, L100.0100, L505.5000 ####[facility] [address] [place], [place], [id number] Amphetamine detection with 1 000 ng/mL as cutoffOrdered By: Anat Ni on 09-17-2024 Amphetamines Screen method >1000 ng/mL Ql (U) Negative < 200 ng/mL [facility] Anion gap in Serum or Plasma Ordered By: Anat Ni on 09-17-2024 Anion gap [Moles/Vol] 14 mmol/L 5- [facility] Automated lymphocyte count a s percentage of total leukocytesOrdered By: Anat Ni on 09-17-2024 Lymphocytes/100 WBC Auto (Unsp spec) 31.7 % [facility] BUN/creatinine ratioOrdered By: Anat Ni on 09-17-2024 Urea nitrogen/Creatinine [Mass ratio] 6.5 mg/mg Low - [facility] Basophil percentageOrdered B y: Anat Ni on 09-17-2024 Basophils/100 WBC (Bld) 0.7 % 0-1 [facility] Bilirubin, totalOrdered By: Anat Ni on 09-17-2024 Bilirubin [Mass/Vol] 0.33 mg/dL 0.00-1.30 [facility] CBC W/Diff, Automatedon 08-30 Absolute Lymph 2.26 X10 3/uL Normal 0.83-4.51 [facility] Comment on above: Performed By: #### L 501.9100, L100.0100, L505.5000 #### [facility] [address] [place], [address] Absolute Neut 3.8 X10 3/uL Normal 2.0-7.7 [facility] Comment on above: Performed By: #### L 501.9100, L100.0100, L505.5000 #### [facility] [address] [place], [address] Basophils/100 WBC (Bld) 0.7 % Normal 0-1 [facility] Comment on above: Performed By: #### L 501.9100, L100.0100, L505.5000 #### [facility] [address] [place], [address] Eosinophils/100 WBC (Bld) 2.5 % Normal 0-5 [facility] Comment on above: Performed By: #### L 501.9100, L100.0100, L505.5000 #### [facility] [address] [place], [address] Erythrocyte distribution width (RBC) [Ratio] 13.4 % Normal 11.6-14.6 [facility] Comment on above: Performed By: #### L 501.9100, L100.0100, L505.5000 #### [facility] [address] [place], [address] Hematocrit (Bld) [Volume fraction] 49.4 % Normal 40-54 [facility] Comment on above: Performed By: #### L 501.9100, L100.0100, L505.5000 #### [facility] [address] [place], [address] Hemoglobin (Bld) [Mass/Vol] 17.1 g/dL High 13.0-16.5 [facility] Comment on above: Performed By: #### L 501.9100, L100.0100, L505.5000 #### [facility] [address] [place], [address] IG% 0.300 Normal 0.0-0.9 [facility] Comment on above: Result Comment: IG% - Immature Granulocytes (promyelocytes, myelocytes and metamyelocytes) > 1% indicates that a LEFT SHIFT is Present. Performed By: #### L 501.9100, L100.0100, L505.5000 #### [facility] [address] [place], [address] Lymphocytes/100 WBC (Bld) 31.7 % Normal 19-41 [facility] Comment on above: Performed By: #### L 501.9100, L100.0100, L505.5000 #### [facility] [address] [place], [address] MCH (RBC) [Entitic mass] 33.5 pg High 27.0-32.0 [facility] Comment on above: Performed By: #### L 501.9100, L100.0100, L505.5000 #### [facility] [address] [place], [address] MCHC (RBC) [Mass/Vol] 34.6 g/dL Normal 32-36 [facility] Comment on above: Performed By: #### L 501.9100, L100.0100, L505.5000 #### [facility] [address] [place], [address] MCV (RBC) [Entitic vol] 96.7 fL High 80-94 [facility] Comment on above: Performed By: #### L 501.9100, L100.0100, L505.5000 #### [facility] [address] [place], [address] Monocytes/100 WBC (Bld) 11.8 % High 0-10 [facility] Comment on above: Performed By: #### L 501.9100, L100.0100, L505.5000 #### [facility] [address] [place], [address] Neutrophils/100 WBC (Bld) 53.0 % Normal 47-70 [facility] Comment on above: Performed By: #### L 501.9100, L100.0100, L505.5000 #### [facility] [address] [place], [address] Nucleated RBC (Bld) [#/Vol] 0 10*3/uL Normal 0-5 [facility] Comment on above: Performed By: #### L 501.9100, L100.0100, L505.5000 #### [facility] [address] [place], [address] Platelet mean volume (Bld) [Entitic vol] 8.2 fL Normal 6.2-12.0 [facility] Comment on above: Performed By: #### L 501.9100, L100.0100, L505.5000 #### [facility] [address] [place], [address] Platelets (Bld) [#/Vol] 281 10*3/uL Normal 150-450 [facility] Comment on above: Performed By: #### L 501.9100, L100.0100, L505.5000 #### [facility] [address] [place], [address] RBC (Bld) [#/Vol] 5.11 10*6/uL Normal 4.6-6.2 [facility] Comment on above: Performed By: #### L 501.9100, L100.0100, L505.5000 #### [facility] [address] [place], [address] RDW SD 48.2 fl High 35.1-43.9 [facility] Comment on above: Performed By: #### L 501.9100, L100.0100, L505.5000 #### [facility] [address] [place], [address] WBC (Bld) [#/Vol] 7.1 10*3/uL Normal 4.4-11.0 [facility] Comment on above: Performed By: #### L 501.9100, L100.0100, L505.5000 #### [facility] [address] [place], [address] Carbon dioxide, total [Moles /volume] in Central venous bloodOrdered By: Anat Ni on 09-17-2024 CO2 [Moles/Vol] 22.2 mmol/L 21.0-32.0 [facility] Chloride assayOrdered By: Sara iN on 09-17-2024 Chloride [Moles/Vol] 94 mmol/L Low 98-108 [facility] Comprehensive Metabolic Prof ilon 09-17-2024 Albumin [Mass/Vol] 4.1 g/dL Normal 3.5-5.0 [facility] Comment on above: Performed By: #### L 500.4050 ####[facility] [address] [place], [address] Albumin/Globulin [Mass ratio] 1.3 {ratio} Normal 0.9-2.4 [facility] Comment on above: Performed By: #### L 500.4050 ####[facility] [address] [place], [address] ALK PHOS 116 U/L Normal 40-129 [facility] Comment on above: Performed By: #### L 500.4050 ####[facility] [address] [place], [address] ALT [Catalytic activity/Vol] 64 U/L High <=46 [facility] Comment on above: Performed By: #### L 500.4050 ####[facility] [address] [place], [address] AST [Catalytic activity/Vol] 63 U/L High <=37 [facility] Comment on above: Result Comment: Hemo lysis present, Results??could be affected. ?? Performed By: #### L 500.4050 ####[facility] [address] [place], [address] Bilirubin [Mass/Vol] 0.33 mg/dL Normal 0.00-1.30 [facility] Comment on above: Performed By: #### L 500.4050 ####[facility] [address] [place], [address] BUN/CRE 6.5 RATIO Low 10-20 [facility] Comment on above: Performed By: #### L 500.4050 ####[facility] [address] [place], [address] Calcium [Mass/Vol] 8.7 mg/dL Normal 7.6-11.0 [facility] Comment on above: Performed By: #### L 500.4050 ####[facility] [address] [place], [address] Chloride [Moles/Vol] 94 mmol/L Low 98-108 [facility] Comment on above: Performed By: #### L 500.4050 ####[facility] [address] [place], [address] CO2 [Moles/Vol] 22.2 mmol/L Normal 21.0-32.0 [facility] Comment on above: Performed By: #### L 500.4050 ####[facility] [address] [place], [address] Creatinine [Mass/Vol] 0.60 mg/dL Low 0.70-1.20 [facility] Comment on above: Performed By: #### L 500.4050 ####[facility] [address] [place], [address] ECRCL 165.82 ml/min Normal 50-250 [facility] Comment on above: Performed By: #### L 500.4050 ####[facility] [address] [place], [address] GAP 14 Normal 5-15 [facility] Comment on above: Performed By: #### L 500.4050 ####[facility] [address] [place], [address] GFR/1.73 sq M.predicted among non-blacks MDRD (S/P/Bld) [Vol rate/Area] 113 mL/min/{1.73_m2} Normal >60 [facility] Comment on above: Result Comment: mL/m in/1.73m2 CKD-EPI Creatinine Equation (2020) Performed By: #### L 500.4050 ####[facility] [address] [place], [address] Globulin (S) [Mass/Vol] 3.3 g/dL Normal 2.2-4.2 [facility] Comment on above: Performed By: #### L 500.4050 ####[facility] [address] [place], [address] Glucose [Mass/Vol] 176 mg/dL High 70-99 [facility] Comment on above: Performed By: #### L 500.4050 ####[facility] [address] [place], [address] Potassium [Moles/Vol] 4.5 mmol/L Normal 3.3-5.1 [facility] Comment on above: Result Comment: Hemo lysis present, Results??could be affected. ?? Performed By: #### L 500.4050 ####[facility] [address] [place], [address] Sodium [Moles/Vol] 131 mmol/L Low 133-145 [facility] Comment on above: Performed By: #### L 500.4050 ####[facility] [address] [place], [address] T PROT 7.4 g/dL Normal 5.9-8.4 [facility] Comment on above: Performed By: #### L 500.4050 ####[facility] [address] [place], [address] Urea nitrogen [Mass/Vol] 4 mg/dL Normal 4-19 [facility] Comment on above: Performed By: #### L 500.4050 ####[facility] [address] [place], [address] Emergency Department Summary on 09-17-2024 Emergency Department Summary [facility] Medical Records Department [address] [place] [address] Emergency Department Summary 09/17/24 MR#: [id number] Acct: [id number] Name: MARIA DE JESUS HOGAN Rep #: [id number] : 1965 58 From: Doe Call PCP: OUT OF TOWN DOCTOR Status:ADM IN Location: MS3 [id number] [facility] History of Present Illness Chief Complaint: Substance Abuse Narrative Narrative: 58-year-old male has a history of alcoholism. He drinks 6-9 tall boy beers a day and states his last drink was about 20 minutes ago. He is here requesting alcohol detox. He detoxed at [place] several years ago and states he detoxed somewhere else in May of this year and lasted about a month before he started drinking again. He denies history of withdrawal seizures. He takes gabapentin for arthritis and neuropathy. His states he is prescribed vitamin B and an antiacid but he does not take them. He denies other drug use. He denies fever or chills, chest pain or shortness of breath, abdominal, vomiting, hematemesis, melena or hematochezia. [facility] Medical History (Updated 09/17/24 @ 21:09 by Yasemin Weiss) Anxiety Sleep apnea Smoker Hypertension TIA (transient ischemic attack) EtOH dependence Home Medications ???Medication ???Instructions ???Recorded ???Last Taken ???Type cyclobenzaprine 10 mg tablet 10 mg PO QHS muscle spasm 09/17/24 Unknown History gabapentin 300 mg capsule 600 mg PO TID 09/17/24 09/17/24 Hi story melatonin 5 mg tablet 5 mg PO QHS 09/17/24 09/16/24 Hist ory omeprazole 20 mg tablet,delayed 20 mg PO DAILY 09/17/24 09/16/24 H istory release Allergy/AdvReac Type Severity Reaction Status Date / Time bee pollen Allergy Anaphylaxis Verified 09/17/24 18:30 nickel AdvReac Rash Verified 09/17/24 18:30 tramadol AdvReac Nausea Verified 09/17/24 18:30 Social History Smoking Status: Current every day smoker tobacco type: cigarettes ROS ROS ED ROS Narrative Constitutional: Negative for fever, chills, malaise. CVS: Positive for chest pain. No syncope. Respiratory: Negative for cough. GI: Negative for abdominal pain, vomiting, melena, hematochezia. : Negative for dysuria. Neuro: Negative for headache. EXAM Physical Exam Narrative Exam Narrative: CONST: Patient sitting in no acute distress. EYES: Normal inspection. NECK: Normal inspection. RESP: No respiratory distress, CTAB. CVS: Slightly tachycardic with regular rhythm, no murmur, no gallop. ABD: Soft and nontender, no guarding or rebound, nondistended. SKIN: Color normal, no rash, warm, dry, intact. EXTREMITIES: Normal appearance. NEURO: Alert and answering questions appropriately. PSYCH: Normal affect. Const Vital Signs: 09/17/24 18:30 Temperature 98.3 F Temperature Source Oral Pulse Rate 103 H Respiratory Rate 18 Blood Pressure 121/80 H Blood Pressure Mean 93 Pulse Ox 95 Oxygen Delivery Method Room Air Physical Exam Const Vital Signs: 09/17/24 18:30 Temperature 98.3 F Temperature Source Oral Pulse Rate 103 H Respiratory Rate 18 Blood Pressure 121/80 H Blood Pressure Mean 93 Pulse Ox 95 Oxygen Delivery Method Room Air MDM MDM MDM Narrative Medical decision making narrative: History gathered from: Patient and spouse Differential includes but not limited to no alcohol abuse/withdrawal, hepatitis, cirrhosis 58-year-old male here requesting alcohol detox. He is a daily heavy drinker and last drink was 20 minutes prior to arrival. Currently asymptomatic. He is mildly tachycardic in the low 100s with otherwise normal vital signs. CBC shows hemoglobin of 17.1, otherwise normal. Sodium 131, normal renal function, AST 63, ALT 64 which are lower than previous. Urine drug screen is negative. Alcohol is 368. I discussed the case with the hospitalist for admission. Lab Data Attestation: I reviewed the patient's lab results. Labs: Laboratory Results - last 24 hr 09/17/24 18:49 WBC 7.1 RBC 5.11 Hgb 17.1 H Hct 49.4 MCV 96.7 H MCH 33.5 H MCHC 34.6 RDW Std Deviation 48.2 H RDW Coeff of Shelby 13.4 Plt Count 281 MPV 8.2 Immature Gran % (Auto) 0.300 Neut % (Auto) 53.0 Lymph % (Auto) 31.7 [place] % (Auto) 11.8 H Eos % (Auto) 2.5 Baso % (Auto) 0.7 Absolute Neuts (auto) 3.8 Absolute Lymphs (auto) 2.26 Nucleated RBC % 0 Sodium 131 L Potassium 4.5 Chloride 94 L Carbon Dioxide 22.2 Anion Gap 14 BUN 4 Creatinine 0.60 L Estim Creat Clear Calc 165.82 Est GFR (MDRD) Non-Af 113 BUN/Creatinine Ratio 6.5 L Glucose 176 H Calcium 8.7 Magnesium 2.1 Total Bilirubin 0.33 AST 63 H ALT 64 H Alkaline Phosphatase (more content not included)... Normal [facility] Eosinophil percentageOrdered By: Anat iN on 09-17-2024 Eosinophils/100 WBC (Bld) 2.5 % 0-5 [facility] Erythrocyte distribution wid th ratioOrdered By: Anatchika Ni on 09-17-2024 Erythrocyte distribution width (RBC) [Ratio] 13.4 % 11.6-14.6 [facility] Erythrocyte distribution wid th standard deviationOrdered By: Anat Ni on 09-17-2024 Erythrocyte distribution width (RBC) [Ratio] 48.2 fl High 35.1-43.9 [facility] Glomerular filtration rate ( GFR) estimation/1.73 sq m using serum, plasma, or whole bOrdered By: Anat Ni on 09-17-2024 GFR/1.73 sq M.predicted among non-blacks MDRD (S/P/Bld) [Vol rate/Area] 113 mL/min/{1.73_m2} >60 [facility] Comment on above: mL/min/1.73m2 CKD-EP I Creatinine Equation (2020) H AND P Exam - [facility] 09-17-2024 H&P Exam - Hospitalist [facility] Medical Records Department [address] [place] [address] H P Exam - Hospitalist 09/17/241944 MR#: [id number] Acct: [id number] Name: MARIA DE JESUS HOGAN Rep #: [id number] : 1965 58 From: Joon Vinson DO PCP: OUT OF TOWN DOCTOR Status:ADM IN Location: MS3 [id number] HPI - General General Date of Admission: 09/17/24 Date of Service: 09/17/24 Chief Complaint: Requesting EtOH Detox. HPI Narrative MARIA DE JESUS HOGAN, is a 58 M with a past medical history of EtOH abuse; with patient admitting to drinking 6-9 tall boy beers daily with his last drink 20 minutes prior to arrival, history of EtOH hepatitis, tobacco abuse; with subsequent COPD, obesity; with BMI of 30.8 this admission, BPH, GERD; on omeprazole OA; with chronic back pain plus neuropathy on gabapentin 3 times daily and as needed cyclobenzaprine and history of admission here from July 17, 2017 to July 20, 2017 for inpatient treatment of acute alcohol withdrawal and mild alcoholic hepatitis who presents to [facility] once again requesting alcohol detoxification. Mr. Hogan reports he recently went for alcohol detox at an outside facility in May of this year with sobriety lasting 1 month before relapsing into severe alcohol abuse. He denies history of alcohol withdrawal seizures and his informed the ER physician that he had been prescribed B vitamins and an antacid but he does not take them as prescribed. There is no report of other illicit drug use. He additionally denies associated fever, chills, nausea, vomiting, diarrhea, constipation, chest pain, palpitations, heart racing, shortness of breath, headache or rash. In the ER he was noted to have an elevated DIEGO of 368 mg/dL present on admission consistent with Acute EtOH Intoxication in the setting of Chronic EtOH Abuse and he was then admitted to the general medical floor for ongoing care for stay that is expected to extend beyond 2 midnights. [facility] Medical History EtOH dependence Home Medications ???Medication ???Instructions ???Recorded ???Last Taken ???Type cyclobenzaprine 10 mg tablet 10 mg PO QHS PRN PRN muscle spasm 09/17/24 Unknown History gabapentin 300 mg capsule 600 mg PO TID 09/17/24 09/17/24 Hi story melatonin 5 mg tablet 5 mg PO QHS 09/17/24 09/16/24 Hist ory omeprazole 20 mg tablet,delayed 20 mg PO DAILY 09/17/24 09/16/24 H istory release Allergy/AdvReac Type Severity Reaction Status Date / Time bee pollen Allergy Anaphylaxis Verified 09/17/24 18:30 nickel AdvReac Rash Verified 09/17/24 18:30 tramadol AdvReac Nausea Verified 09/17/24 18:30 Social History Smoking Status: Current every day smoker tobacco type: cigarettes ROS ROS Narrative Review of Systems: Constitutional: Patient denies fever or chills. Eyes: Patient denies changes in vision or discharge from eyes. ENT: Patient denies runny nose, sore throat or ear pain. Resp: Patient denies shortness of breath or cough. CV: Patient denies chest pain, palpitations, heart racing or lower extremity edema. GI: Patient denies abdominal pain, nausea, vomiting, diarrhea or constipation. : Patient denies dysuria or hematuria. MSK: Patient admits to chronic back pain with neuropathy as per HPI. Skin: Patient denies rash, abscess, wounds or jaundice. Psych: Patient denies symptoms of uncontrolled depression or anxiety. Neuro: Patient denies headache, paresthesias or focal neurologic deficits. Allergy: Patient denies lip swelling, tongue swelling or urticaria. Hematology: Patient denies easy bleeding or easy bruisability. Endocrinology: Patient denies polyuria, polydipsia, polyphagia or heat/cold intolerance. 14 point ROS otherwise negative save for positives noted above in HPI. Vital Signs Vital Signs Vital Signs: 09/17/24 18:30 Temperature 98.3 F Temperature Source Oral Pulse Rate 103 H Respiratory Rate 18 Blood Pressure 121/80 H Blood Pressure Mean 93 Pulse Ox 95 Oxygen Delivery Method Room Air Weight Weight: 221 lb Body Mass Index (BMI) 30.8 Physical Exam Const alert, oriented x3 and no apparent distress Constitutional Narrative: Patient appears intoxicated. General Appearance: cooperative HEENT normocephalic, head/scalp atraumatic, hearing grossly normal bilaterally and moist oral mucous membranes Eyes PERRL and EOMs intact bilaterally Neck no lymphadenopathy and supple Resp normal respiratory effort, no retractions, no use of accessory muscles and clear to auscultation bilaterally Cardio regular rate and regular rhythm GI normal to inspection, nondistended, normoactive bowel sounds, soft to palpation, non-tender and (more content not included)... Normal [facility] Hematocrit Auto (Bld) [Volum e fraction]Ordered By: Anat Ni on 09-17-2024 Hematocrit (Bld) [Volume fraction] 49.4 % 40-54 [facility] Hemoglobin measurementOrdere d By: Anat Ni on 09-17-2024 Hemoglobin (Bld) [Mass/Vol] 17.1 g/dL High 13.0-16.5 [facility] Immature granulocytes/100 WB C Auto (Bld)Ordered By: Anat Ni on 09-17-2024 Immature granulocytes/100 WBC (Bld) 0.300 % 0.0-0.9 [facility] Comment on above: IG% - Immature Granu locytes (promyelocytes, myelocytes and metamyelocytes) > 1% indicates that a LEFT SHIFT is Present. International normalized rat io (INR) calculationOrdered By: Joon Quintero on 09-17-2024 INR Coag (Bld) [Relative time] 0.9 {INR} [facility] Laboratory - Chemistry and C hemistry - challengeOrdered By: Anat Ni on 09-17-2024 AST [Catalytic activity/Vol] 63 U/L High <38 [facility] Comment on above: Hemolysis present, R esults could be affected. MCV (mean corpuscular volume ) determinationOrdered By: Anat Ni on 09-17-2024 MCV (RBC) [Entitic vol] 96.7 fL High 80-94 [facility] Magnesiumon 09-17-2024 Magnesium [Mass/Vol] 2.1 mg/dL Normal 1.5-2.2 [facility] Comment on above: Performed By: #### L 300.3900, L501.5200 ####[facility] [address] [place], [address] Magnesium measurement (mass/ volume)Ordered By: Joon Quintero on 09-17-2024 Magnesium (Unsp spec) [Mass/Vol] 2.1 mg/dL 1.5-2.2 [facility] Mean corpuscular hemoglobin (MCH) determinationOrdered By: Anat Ni on 09-17-2024 MCH (RBC) [Entitic mass] 33.5 pg High 27.0-32.0 [facility] Mean corpuscular hemoglobin concentration (MCHC) determinationOrdered By: Anat Ni on 09-17-2024 MCHC (RBC) [Mass/Vol] 34.6 g/dL 32-36 [facility] Mean platelet volume determi nationOrdered By: Anat Raine on 09-17-2024 Platelet mean volume (Bld) [Entitic vol] 8.2 fL 6.2-12.0 [facility] Monocyte percentageOrdered B y: Anat Raine on 09-17-2024 Monocytes/100 WBC (Bld) 11.8 % High 0-10 [facility] Neutrophil percentageOrdered By: Anatchika Ni on 09-17-2024 Neutrophils/100 WBC (Bld) 53.0 % 47-70 [facility] No Panel InformationOrdered By: Anatchika Ni on 09-17-2024 Urine Buprenorphine Qualitative Negative < 200 ng/mL [facility] Urine Oxycodone Screen Negative < 100 ng/mL [facility] Nucleated red blood cell per centageOrdered By: Anatchika Ni on 09-17-2024 Nucleated RBC/100 WBC (Bld) [Ratio] 0 % 0-5 [facility] Platelet countOrdered By: Sara Ni on 09-17-2024 Platelets (Bld) [#/Vol] 281 10*3/uL 150-450 [facility] Potassium measurement (mass/ volume)Ordered By: Anatchika Ni on 09-17-2024 Potassium (Unsp spec) [Mass/Vol] 4.5 mmol/L 3.3-5.1 [facility] Comment on above: Hemolysis present, R esults could be affected. Prothrombin Time w/INRon INR Coag (PPP) [Relative time] 0.9 {INR} Normal [facility] Comment on above: Performed By: #### L 300.3900, L501.5200 ####[facility] [address] [place], [address] PT Coag (PPP) [Time] 12.8 s Normal 11.7-14.9 [facility] Comment on above: Performed By: #### L 300.3900, L501.5200 ####[facility] [address] [place], [address] Prothrombin timeOrdered By: Joon Quintero on 09-17-2024 PT Coag (PPP) [Time] 12.8 s 11.7-14.9 [facility] Quantitative urine opiates m easurementOrdered By: Anat Ni on 09-17-2024 Opiates Ql (U) Negative < 300 ng/mL [facility] RBC Auto (Bld) [#/Vol]Ordere d By: Anat Ni on 09-17-2024 RBC (Bld) [#/Vol] 5.11 10*6/uL 4.6-6.2 [facility] Screening urine fentanyl tari surementOrdered By: Anat Ni on 09-17-2024 fentaNYL Screen Ql (U) Negative [facility] Serum creatinine measurement (mass/volume)Ordered By: Anat Ni on 09-17-2024 Creatinine [Mass/Vol] 0.60 mg/dL Low 0.70-1.20 [facility] Serum globulin measurementOr dered By: Anat Ni on 09-17-2024 Globulin (S) [Mass/Vol] 3.3 g/dL 2.2-4.2 [facility] Serum glucose measurement (m ass/volume)Ordered By: Anat Ni on 09-17-2024 Glucose [Mass/Vol] 176 mg/dL High 70-99 [facility] Serum or plasma alanine kendrick otransferase (ALT) measurementOrdered By: Anat Ni on 09-17-2024 ALT [Catalytic activity/Vol] 64 U/L High <47 [facility] Serum or plasma albumin chan urement (mass/volume)Ordered By: Anat Ni on 09-17-2024 Albumin [Mass/Vol] 4.1 g/dL 3.5-5.0 [facility] Serum or plasma albumin/glob ulin mass ratioOrdered By: Anat Ni on 09-17-2024 Albumin/Globulin [Mass ratio] 1.3 {ratio} 0.9-2.4 [facility] Serum or plasma alkaline reynold sphatase measurementOrdered By: Anat Ni on 09-17-2024 ALP [Catalytic activity/Vol] 116 U/L 40-129 [facility] Serum or plasma calcium chan urement (mass/volume)Ordered By: Anat Ni on 09-17-2024 Calcium [Mass/Vol] 8.7 mg/dL 7.6-11.0 [facility] Serum or plasma ethanol chan urement (mass/volume)Ordered By: Anat Ni on 09-17-2024 Ethanol [Mass/Vol] 368.0 mg/dL High <10.1 [facility] Comment on above: Critical Result(s) C delvisd LSPARR at: 1940 by: CHRISTA Results read back by same.This test is for medical purposes only. The legal definition of intoxication varies according to local law. Serum or plasma urea nitroge n measurement (mass/volume)Ordered By: Anat Ni on 09-17-2024 Urea nitrogen [Mass/Vol] 4 mg/dL 4- [facility] Sodium levelOrdered By: Anat Ni on 09-17-2024 Sodium [Moles/Vol] 131 mmol/L Low 133-145 [facility] Total proteinOrdered By: Mariann Ni on 09-17-2024 Protein [Mass/Vol] 7.4 g/dL 5.9-8.4 [facility] Urine Drug Screen (VISTA)on 09-17-2024 AMPHETAMINES Negative Normal <1000 ng/mL [facility] Comment on above: Performed By: #### L 501.9100, L100.0100, L505.5000 #### [facility] Laboratory [address] [place], [place], [address] BARBITIURATES Negative Normal < 200 ng/mL [facility] Comment on above: Performed By: #### L 501.9100, L100.0100, L505.5000 #### [facility] [address] [place], [address] BENZODIAZIPINE Negative Normal < 200 ng/mL [facility] Comment on above: Performed By: #### L 501.9100, L100.0100, L505.5000 #### [facility] [address] [place], [address] BUP Ur Drug Scr Negative Normal < 200 ng/mL [facility] Comment on above: Performed By: #### L 501.9100, L100.0100, L505.5000 #### [facility] [address] [place], [address] COCAINE Negative Normal < 300 ng/mL [facility] Comment on above: Performed By: #### L 501.9100, L100.0100, L505.5000 #### [facility] [address] [place], [address] Fentanyl Negative Normal [facility] Comment on above: Performed By: #### L 501.9100, L100.0100, L505.5000 #### [facility] [address] [place], [address] METHADONE Negative Normal < 300 ng/mL [facility] Comment on above: Performed By: #### L 501.9100, L100.0100, L505.5000 #### [facility] [address] [place], [address] OPIATES Negative Normal < 300 ng/mL [facility] Comment on above: Performed By: #### L 501.9100, L100.0100, L505.5000 #### [facility] [address] [place], [address] OXYCODONE Negative Normal < 100 ng/mL [facility] Comment on above: Performed By: #### L 501.9100, L100.0100, L505.5000 #### [facility] [address] [place], [address] PCP Negative Normal < 25 ng/mL [facility] Comment on above: Performed By: #### L 501.9100, L100.0100, L505.5000 #### [facility] [address] [place], [address] THC Negative Normal < 50 ng/mL [facility] Comment on above: Performed By: #### L 501.9100, L100.0100, L505.5000 #### [facility] Laboratory [place], [address] Urine benzodiazepine levelOr dered By: Anat Ni on 09-17-2024 Benzodiazepines Ql (U) Negative < 200 ng/mL [facility] Urine cocaine levelOrdered B y: Anat Ni on 09-17-2024 Cocaine Ql (U) Negative < 300 ng/mL [facility] Urine kwarg-3-pjcdbdglfnybhh abinol (THC) measurementOrdered By: Anat Ni on 09-17-2024 Cannabinoids Screen Ql (U) Negative < 50 ng/mL [facility] Urine phencyclidine (PCP) de tectionOrdered By: Anat Ni on 09-17-2024 Phencyclidine Ql (U) Negative < 25 ng/mL [facility] White blood cell (WBC) count Ordered By: Anat Ni on 09-17-2024 WBC (Bld) [#/Vol] 7.1 10*3/uL 4.4-11.0 [facility] 36on 08-17-2024 [address] [facility] 08-14-2024 36 [facility] Progress Noteon 08-14-2024 Progress Note Normal [facility] Progress Noteon 08-13-2024 Progress Note Missed Session Unexcused Pt did not call or show for Scheduled Assessment on this date. [facility] 36on 08-10-2024 36 [facility] 36 [facility] 36 [facility] 36 [facility] ED Nursing Noteon 08-10-2024 ED Nursing Note Recently diagnosed with shingles and is here for increasing pain to area on abdomen. Normal [facility] ED Provider Noteon ED Provider Note Normal [facility] 36on 08-07-2024 36 Normal [facility] 30on 08-06-2024 30 Normal [facility] [id number] 08-06-2024 [id number] Social work consult placed for patient. None of the 5 areas of S NAHOMY noted at current time. Social work consult cleared Normal [facility] [id number] Normal [facility] COMPREHENSIVE METABOLIC PANE Arnulfo 08-06-2024 Albumin [Mass/Vol] 3.3 g/dL Low 3.5-5.0 [facility] Comment on above: Performed By: #### L AB17 ####Assistant Track Coach: CECI DUPREE ([phone])[facility])[address] [place] [address] ALP [Catalytic activity/Vol] 96 U/L Normal 40-150 [facility] Comment on above: Performed By: #### L AB17 ####Assistant Track Coach: CECI DUPREE ([phone])[facility])[address] [place] [address] ALT [Catalytic activity/Vol] 28 U/L Normal <40 [facility] Comment on above: Performed By: #### L AB17 ####Assistant Track Coach: CECI DUPREE ([id number])[facility])[address] [place] [address] Anion gap [Moles/Vol] 7 mmol/L Normal 3-13 [facility] Comment on above: Performed By: #### L [id number] ####Assistant Track Coach: CECI DUPREE ([id number])[facility])[address] [place] [address] AST [Catalytic activity/Vol] 38 U/L High <34 [facility] Comment on above: Performed By: #### L [id number] ####Assistant Track Coach: CECI DUPREE ([id number])[facility])[address] [place] [address] Bilirubin [Mass/Vol] 0.5 mg/dL Normal <1.2 [facility] Comment on above: Performed By: #### L [id number] ####Assistant Track Coach: CECI DUPREE ([phone])[facility] ([facility])[address] [place] [address] Calcium [Mass/Vol] 8.8 mg/dL Normal 8.4-10.2 [facility] Comment on above: Performed By: #### L [id number] ####Assistant Track Coach: CECI DUPREE ([id number])[facility] ([facility])[address] [place] [address] [place] Chloride [Moles/Vol] 100 mmol/L Normal 98-107 [facility] Comment on above: Performed By: #### L [id number] ####Assistant Track Coach: CECI DUPREE ([id number])[facility] ([facility])[address] [place] [address] CO2 [Moles/Vol] 31 mmol/L High 22-29 [facility] Comment on above: Performed By: #### L [id number] ####Assistant Track Coach: CECI DUPREE ([phone])[facility] ([facility])[address] [place] [address] Creatinine [Mass/Vol] 0.75 mg/dL Normal 0.72-1.25 [facility] Comment on above: Performed By: #### L [id number] ####Assistant Track Coach: CECI DUPREE ([phone])[facility])[address] [place] [address] GLOMERULAR FILTRATION RATE ML/MIN/1.73 SQ M.PREDICTED >90.0 Normal >60.0 [facility] Comment on above: Result Comment: Calc ulation based on the Chronic Kidney Disease Epidemiology Collaboration (CKD-EPI) equation refit without adjustment for race Performed By: #### L [id number] ####Assistant Track Coach: CECI DUPREE ([id number])[facility] ([facility])[address] [place] [address] [place] Glucose [Mass/Vol] 111 mg/dL High 74-100 [facility] Comment on above: Performed By: #### L [id number] ####Assistant Track Coach: CECI DUPREE ([id number])[facility] ([facility])[address] [place] [address] Potassium [Moles/Vol] 4.1 mmol/L Normal 3.5-5.1 [facility] Comment on above: Result Comment: [facility] potassium values may be up to 0.5 mmol/L lower than serum values. Performed By: #### L [id number] ####Assistant Track Coach: CECI DUPREE ([phone])[facility])[address] [place] [address] Protein [Mass/Vol] 6.5 g/dL Normal 6.4-8.3 [facility] Comment on above: Performed By: #### L [id number] ####Assistant Track Coach: CECI DUPREE ([id number])[facility])[address] [place] [address] Sodium [Moles/Vol] 138 mmol/L Normal 136-145 [facility] Comment on above: Performed By: #### L AB17 ####Assistant Track Coach: ECCI DUPREE ([phone])[facility])[address] [place] [address] Urea nitrogen [Mass/Vol] 5 mg/dL Low 9-23 [facility] Comment on above: Performed By: #### L [id number] ####Assistant Track Coach: CECI DUPREE ([id number])[facility])[address] [place] [address] Comprehensive metabolic 1998 panelon 08-06-2024 Albumin [Mass/Vol] 3.3 g/dL Low 3.5 - 5.0 g/dL [facility] ALP [Catalytic activity/Vol] 96 U/L 40 - 150 U/L [facility] ALT [Catalytic activity/Vol] 28 U/L NINF - 40 U/L [facility] Anion gap [Moles/Vol] 7 mmol/L 3 - 13 mmol/L [facility] AST [Catalytic activity/Vol] 38 U/L High NINF - 34 U/L [facility] Bilirubin [Mass/Vol] 0.5 mg/dL NINF - 1.2 mg/dL [facility] Calcium [Mass/Vol] 8.8 mg/dL 8.4 - 10. 2 mg/dL [facility] Chloride [Moles/Vol] 100 mmol/L 98 - 10 7 mmol/L [facility] CO2 [Moles/Vol] 31 mmol/L High 22 - 29 mmol/L [facility] Creatinine [Mass/Vol] 0.75 mg/dL 0.72 - 1.25 mg/dL [facility] GFR/1.73 sq M.predicted (S/P/Bld) [Vol rate/Area] - PINF [facility] Comment on above: Calculation based on the Chronic Kidney Disease Epidemiology Collaboration (CKD-EPI) equation refit without adjustment for race Glucose [Mass/Vol] 111 mg/dL High 74 - 100 mg/dL [facility] Interpretation and review of laboratory results Abnormal [facility] Potassium [Moles/Vol] 4.1 mmol/L 3.5 - 5.1 mmol/L [facility] Comment on above: Plasma potassium juan ues may be up to 0.5 mmol/L lower than serum values. Protein [Mass/Vol] 6.5 g/dL 6.4 - 8.3 g/dL [facility] Sodium [Moles/Vol] 138 mmol/L 136 - 145 mmol/L [facility] Urea nitrogen [Mass/Vol] 5 mg/dL Low 9 - 23 mg/dL [facility] Nursing Noteon 08-06-2024 Nursing Note Normal [facility] Nursing Note 2 attempts done for blood draw. Unable to retrieve blood. 2nd nurse to attempt. Normal [facility] Nursing Note Patient is up and steady, seen in group room. Pt is cooperative and med compliant. Pt denies SI/HI/AVH. Pt encouraged to notify staff for any questions and concerns. Normal [facility] Progress Noteon 08-06-2024 Progress Note Normal [facility] 30on 08-05-2024 30 Normal [facility] 94on 08-05-2024 94 Normal [facility] Laboratory - Chemistry and C hemistry - challengeOrdered By: Deven Stokes on 08-05-2024 Transferrin.carbohydrate deficient/Total transferrin [Mass fraction] 7.5 % High NINF - 1.4 % [facility] Work Phone: Comment on above: Normal:0-1.3% Inconclusive: 1.4-1.6% Elevated: greater than or equal to 1.7% Performed via Capillary Electrophoresis Nursing Noteon 08-05-2024 Nursing Note Normal [facility] Nursing Note Normal [facility] Nursing Note Normal [facility] Progress Noteon 08-05-2024 Progress Note Normal [facility] Progress Note Normal [facility] Progress Note Nutrition rescreen completed. Patient assigned a level 1. Normal [facility] Transferrin.carbohydrate def icient/Total transferrin [Mass fraction]Ordered By: Deven Stokes on 08-05-2024 Interpretation and review of laboratory results Abnormal [facility] Work Phone: [facility] Work Phone: 30on 08-04-2024 30 Care plan reviewed Normal [facility] [id number] 08-04-2024 [id number] Patient scheduled fo r [facility] intake assessment on 08/13/2024 at 1:30 PM. All information included in patient's discharge paperwork. [facility] [phone] Patient reports plan s to engage in [facility]. Declining residential as an option at current time. JEREMY will assist with scheduling patient intake appointment. [facility] [phone] Normal [facility] CARBOHYDRATE DEFICIENT TRANS FERRINon 08-04-2024 CARBOHYDRATE DEFICIENT TRANSFERRIN 7.5 % High <1.4 [facility] Comment on above: Result Comment: Norm al:0-1.3%Inconclusive: 1.4-1.6%Elevated: greater than or equal to 1.7%Performed via Capillary Electrophoresis Performed By: #### L [id number] ####Assistant Track Coach: CECI DUPREE ([id number])[facility] ([address] Consulton 08-04-2024 Consult Normal [facility] ECG 12-LEADon 08-04-2024 ECG 12-LEAD IMPRESSION: Sinus rhythm Probable anterior infarct, age indeterminate Electronically Signed On 08-04-2024 02:23:55 EDT by Anaya Wallace Normal [facility] ED Nursing Noteon 08-04-2024 ED Nursing Note Transport here for pt. Normal [facility] No Panel InformationOrdered By: Anaya Wallace on 08-04-2024 P [place] 35 degrees [facility] Work Phone: RI Interval 154 ms [facility] Work Phone: QRS [place] 80 degrees [facility] Work Phone: QRSD Interval 86 ms [facility] Work Phone: QT Interval 364 ms [facility] Work Phone: QTC Interval 461 ms [facility] Work Phone: T Wave [place] 47 degrees [facility] Work Phone: [facility] Work Phone: No Panel Informationon 08-04 Sinus rhythm Probable anterior infarct, age indeterminate Electronically Signed On 08-04-2024 02:23:55 EDT by Anaya Dupont D O - 08/04/2024 IMPRESSION: Sinus rhythm Probable anterior infarct, age indeterminate Electronically Signed On 08-04-2024 02:23:55 EDT by Anaya Wallace [facility] Nursing Noteon 08-04-2024 Nursing Note Patient is up and steady, seen in group room socializing. Pt is cooperative and med compliant. Pt has shingles on right flank and back. Pt denies SI/HI/AVH. Pt encouraged to notify staff for any questions and concerns. Normal [facility] Nursing Note Administered PRN Oxycodone for shingles pain. Will monitor effectiveness. Normal [facility] Nursing Note Normal [facility] Nursing Note Normal [facility] Vital signsOrdered By: Godwin Wallace on 08-04-2024 Heart rate 96 /min bpm [facility]: CBC W Auto Differential pane l (Bld)Ordered By: Aurora Garcia on 08-03-2024 Basophils (Bld) [#/Vol] 0 10*3/uL 0.0 - 0.2 10*3/uL [facility] Basophils/100 WBC (Bld) 0.6 % 0.0 - 2.0 % [facility] Eosinophils (Bld) [#/Vol] 0.1 10*3/uL 0.0 - 0.5 10*3/uL [facility] Eosinophils/100 WBC (Bld) 1.2 % 0.0 - 6.0 % [facility] Erythrocyte distribution width (RBC) [Ratio] 13.2 % 11.5 - 15.0 % [facility] Hematocrit (Bld) [Volume fraction] 48.4 % 40.0 - 52.0 % [facility] Hemoglobin (Bld) [Mass/Vol] 17.1 g/dL 13.0 - 18.0 g/dL [facility] Immature granulocytes (Bld) [#/Vol] 0 10*3/uL NINF - 0.1 10*3/uL [facility] Immature granulocytes/100 WBC (Bld) 0.4 % 0.0 - 2.0 % [facility] Interpretation and review of laboratory results Abnormal [facility] Lymphocytes (Bld) [#/Vol] 1.7 10*3/uL 1.0 - 4.3 10*3/uL [facility] Lymphocytes/100 WBC (Bld) 33.3 % 15.0 - 45.0 % [facility] MCH (RBC) [Entitic mass] 33.9 pg 26. 0 - 34.0 pg [facility] MCHC (RBC) [Mass/Vol] 35.3 % 30.5 - 36.0 % [facility] MCV (RBC) [Entitic vol] 95.8 fL 77.0 - 99.0 fL [facility] Monocytes (Bld) [#/Vol] 0.6 10*3/uL 0.0 - 0.9 10*3/uL [facility] Monocytes/100 WBC (Bld) 12.8 % 5.0 - 13.0 % [facility] Neutrophils (Bld) [#/Vol] 2.6 10*3/uL 1.8 - 7.5 10*3/uL [facility] Neutrophils/100 WBC (Bld) 51.7 % 38.0 - 82.0 % [facility] Nucleated RBC/100 WBC (Bld) [Ratio] 0 % [facility] Platelet mean volume (Bld) [Entitic vol] 8.8 fL Low 9.0 - 12.7 fL [facility] Platelets (Bld) [#/Vol] 137 10*3/uL Low 140 - 440 10*3/uL [facility] RBC (Bld) [#/Vol] 5.05 10*6/uL 4.40 - 5.9 0 10*6/uL [facility] WBC (Bld) [#/Vol] 5 10*3/uL 3.6 - 10.7 10*3/uL [facility] CBC WITH AUTO DIFFERENTIALon 08-03-2024 Basophils (Bld) [#/Vol] 0.0 10*3/uL Normal 0.0-0.2 [facility] Comment on above: Performed By: #### L [id number] ####Assistant Track Coach: REINIER ZHU ([id number])[facility] ([facility])[address] [place] [address] Basophils/100 WBC (Bld) 0.6 % Normal 0.0-2.[address] [facility] Comment on above: Performed By: #### L [id number] ####Assistant Track Coach: REINIER ZHU ([id number])[facility] ([facility])[address] [place] [address] Eosinophils (Bld) [#/Vol] 0.1 10*3/uL Normal 0.0-0.5 [facility] Comment on above: Performed By: #### L [id number] ####Assistant Track Coach: REINIER HZU ([id number])[facility] [place] ([facility])[address] [place] [address] Eosinophils/100 WBC (Bld) 1.2 % Normal 0.0-6.0 [facility] Comment on above: Performed By: #### L [id number] ####Assistant Track Coach: REINIER ZHU ([id number])[facility] ([facility])[address] [place] [address] Erythrocyte distribution width (RBC) [Ratio] 13.2 % Normal 11.5-15.0 [facility] Comment on above: Performed By: #### L [id number] ####Assistant Track Coach: REINIER ZHU ([id number])[facility] [place] ([facility])[address] [place] [address] Hematocrit (Bld) [Volume fraction] 48.4 % Normal 40.0-52.0 [facility] Comment on above: Performed By: #### L [id number] ####Assistant Track Coach: REINIER ZHU ([id number])[facility] [place] ([facility])[address] [place] [address] Hemoglobin (Bld) [Mass/Vol] 17.1 g/dL Normal 13.0-18.0 [facility] Comment on above: Performed By: #### L [id number] ####Assistant Track Coach: REINIER ZHU ([id number])[facility] ([facility])[address] [place] [address] IMMATURE GRANS % 0.4 % Normal 0.0-2.0 [facility] Comment on above: Performed By: #### L [id number] ####Assistant Track Coach: REINIER ZHU ([id number])[facility] ([facility])[address] [place] [address] IMMATURE GRANS ABSOLUTE 0.0 10*3/uL Normal <0.1 [facility] Comment on above: Performed By: #### L [id number] ####Assistant Track Coach: REINIER ZHU ([id number])[facility] [place] ([facility])[address] [place] [address] Lymphocytes (Bld) [#/Vol] 1.7 10*3/uL Normal 1.0-4.3 [facility] Comment on above: Performed By: #### L [id number] ####Assistant Track Coach: REINIER ZHU ([phone])[facility] ([facility])[address] [place] [address] Lymphocytes/100 WBC (Bld) 33.3 % Normal 15.0-45.0 [facility] Comment on above: Performed By: #### L [id number] ####Assistant Track Coach: REINIER ZHU ([id number])[facility] ([facility])[address] [place] [address] MCH (RBC) [Entitic mass] 33.9 pg Normal 26.0-34.0 [facility] Comment on above: Performed By: #### L [id number] ####Assistant Track Coach: REINIER ZHU ([id number])[facility]ENTERChika [facility] ([facility])[address] [place] [address] MCHC 35.3 % Normal 30.5-36.0 [facility] Comment on above: Performed By: #### L [id number] ####Assistant Track Coach: REINIER ZHU ([id number])[facility]ENTER[facility]ITAL[facility]um ([facility])[address] [place] [address] MCV (RBC) [Entitic vol] 95.8 fL Normal 77.0-99.0 [facility] Comment on above: Performed By: #### L [id number] ####Assistant Track Coach: REINIER ZHU ([id number])[facility] [place] ([facility])[address] [place] [address] Monocytes (Bld) [#/Vol] 0.6 10*3/uL Normal 0.0-0.9 [facility] Comment on above: Performed By: #### L [id number] ####Assistant Track Coach: REINIER ZHU ([id number])[facility]ENTER[facility] [place] ([facility])[address] [place] [address] Monocytes/100 WBC (Bld) 12.8 % Normal 5.0-13.0 [facility] Comment on above: Performed By: #### L [id number] ####Assistant Track Coach: REINIER ZHU ([id number])[facility]ENTERCh[facility] ([facility])[address] [place] [address] NEUTROPHILS ABSOLUTE 2.6 10*3/uL Normal 1.8-7.5 [facility] Comment on above: Performed By: #### L [id number] ####Assistant Track Coach: REINIER ZHU ([id number])[facility] [place] ([facility])[address] Neutrophils/100 WBC (Bld) 51.7 % Normal 38.0-82.0 [facility] Comment on above: Performed By: #### L [id number] ####Assistant Track Coach: REINIER ZHU ([id number])[facility] [place] ([facility])[address] NRBC 0.0 /100 WBCs Normal 0.0-2.0 [facility] Comment on above: Performed By: #### L [id number] ####Assistant Track Coach: REINIER ZHU ([id number])[facility] ([facility])[address] Platelet mean volume (Bld) [Entitic vol] 8.8 fL Low 9.0-12.7 [facility] Comment on above: Performed By: #### L [id number] ####Assistant Track Coach: REINIER ZHU ([id number])[facility] [place] ([facility])[address] [place] [address] [place] Platelets (Bld) [#/Vol] 137 10*3/uL Low 140-440 [facility] Comment on above: Performed By: #### L [id number] ####Assistant Track Coach: REINIER ZHU ([id number])[facility] [place] ([facility])[address] [place] [address] [place] RBC (Bld) [#/Vol] 5.05 10*6/uL Normal 4.40-5.90 [facility] Comment on above: Performed By: #### L [id number] ####Assistant Track Coach: REINIER ZHU ([id number])[facility] [place] ([facility])[address] [place] [address] [place] WBC (Bld) [#/Vol] 5.0 10*3/uL Normal 3.6-10.7 [facility] Comment on above: Performed By: #### L [id number] ####Assistant Track Coach: REINIER ZHU ([id number])[facility] ([facility])[address] COMPREHENSIVE METABOLIC PANE Arnulfo 08-03-2024 Albumin [Mass/Vol] 3.6 g/dL Normal 3.5-5.0 [facility] Comment on above: Performed By: #### L AB46, LAB17 ####Assistant Track Coach: REINIER ZHU ([id number])[facility] [place] ([facility])[address] ALP [Catalytic activity/Vol] 103 U/L Normal 40-150 [facility] Comment on above: Performed By: #### L AB46, LAB17 ####Assistant Track Coach: REINIER ZHU ([id number])[facility] ([facility])[address] ALT [Catalytic activity/Vol] 32 U/L Normal <40 [facility] Comment on above: Performed By: #### L AB46, LAB17 ####Assistant Track Coach: REINIER ZHU ([id number])[facility] ([facility])[address] Anion gap [Moles/Vol] 12 mmol/L Normal 3-13 [facility] Comment on above: Performed By: #### L AB46, LAB17 ####Assistant Track Coach: REINIER ZHU ([id number])[facility] ([facility])[address] AST [Catalytic activity/Vol] 42 U/L High <34 [facility] Comment on above: Performed By: #### L AB46, LAB17 ####Assistant Track Coach: REINIER ZHU ([id number])[facility] ([facility])[address] Bilirubin [Mass/Vol] 0.3 mg/dL Normal <1.2 [facility] Comment on above: Performed By: #### L AB46, LAB17 ####Assistant Track Coach: REINIER ZHU ([id number])[facility] [place] ([facility])[address] Calcium [Mass/Vol] 8.4 mg/dL Normal 8.4-10.2 [facility] Comment on above: Performed By: #### L AB46, LAB17 ####Assistant Track Coach: REINIER ZHU ([id number])[facility] [place] ([facility])[address] Chloride [Moles/Vol] 98 mmol/L Normal 98-107 [facility] Comment on above: Performed By: #### L AB46, LAB17 ####Assistant Track Coach: REINIER ZHU ([id number])[facility] [place] ([facility])[address] CO2 [Moles/Vol] 26 mmol/L Normal 22-29 [facility] Comment on above: Performed By: #### L AB46, LAB17 ####Assistant Track Coach: REINIER ZHU ([id number])[facility] [place] ([facility])[address] Creatinine [Mass/Vol] 0.64 mg/dL Low 0.72-1.25 [facility] Comment on above: Performed By: #### L AB46, LAB17 ####Assistant Track Coach: REINIER ZHU ([id number])[facility] [place] ([facility])[address] [place] [address] [place] GLOMERULAR FILTRATION RATE ML/MIN/1.73 SQ M.PREDICTED >90.0 Normal >60.0 [facility] Comment on above: Result Comment: Calc ulation based on the Chronic Kidney Disease Epidemiology Collaboration (CKD-EPI) equation refit without adjustment for race Performed By: #### L AB46, LAB17 ####Assistant Track Coach: REINIER ZHU ([id number])[facility] [place] ([facility])[address] [place] [address] [place] Glucose [Mass/Vol] 113 mg/dL High 74-100 [facility] Comment on above: Performed By: #### L AB46, LAB17 ####Assistant Track Coach: REINIER ZHU ([id number])[facility] ([facility])[address] Potassium [Moles/Vol] 4.2 mmol/L Normal 3.5-5.1 [facility] Comment on above: Result Comment: [facility] potassium values may be up to 0.5 mmol/L lower than serum values. Performed By: #### L AB46, LAB17 ####Assistant Track Coach: REINIER ZHU ([id number])[facility] ([facility])[address] Protein [Mass/Vol] 7.4 g/dL Normal 6.4-8.3 [facility] Comment on above: Performed By: #### L AB46, LAB17 ####Assistant Track Coach: REINIER ZHU ([id number])[facility] ([facility])[address] Sodium [Moles/Vol] 136 mmol/L Normal 136-145 [facility] Comment on above: Performed By: #### L AB46, LAB17 ####Assistant Track Coach: REINIER ZHU ([id number])[facility] ([facility])[address] Urea nitrogen [Mass/Vol] 5 mg/dL Low 9-23 [facility] Comment on above: Performed By: #### L AB46, LAB17 ####Assistant Track Coach: REINIER ZHU ([id number])[facility] ([facility])[address] Comprehensive metabolic 1998 panelon 08-03-2024 Albumin [Mass/Vol] 3.6 g/dL 3.5 - 5.0 g/dL [facility] ALP [Catalytic activity/Vol] 103 U/L 40 - 150 U/L [facility] ALT [Catalytic activity/Vol] 32 U/L NINF - 40 U/L [facility] Anion gap [Moles/Vol] 12 mmol/L 3 - 13 mmol/L [facility] AST [Catalytic activity/Vol] 42 U/L High NINF - 34 U/L [facility] Bilirubin [Mass/Vol] 0.3 mg/dL NINF - 1.2 mg/dL [facility] Calcium [Mass/Vol] 8.4 mg/dL 8.4 - 10. 2 mg/dL [facility] Chloride [Moles/Vol] 98 mmol/L 98 - 10 7 mmol/L [facility] CO2 [Moles/Vol] 26 mmol/L 22 - 29 mmol/L [facility] Creatinine [Mass/Vol] 0.64 mg/dL Low 0.72 - 1.25 mg/dL [facility] GFR/1.73 sq M.predicted (S/P/Bld) [Vol rate/Area] - PINF [facility] Comment on above: Calculation based on the Chronic Kidney Disease Epidemiology Collaboration (CKD-EPI) equation refit without adjustment for race Glucose [Mass/Vol] 113 mg/dL High 74 - 100 mg/dL [facility] Interpretation and review of laboratory results Abnormal [facility] Potassium [Moles/Vol] 4.2 mmol/L 3.5 - 5.1 mmol/L [facility] Comment on above: Plasma potassium juan ues may be up to 0.5 mmol/L lower than serum values. Protein [Mass/Vol] 7.4 g/dL 6.4 - 8.3 g/dL [facility] Sodium [Moles/Vol] 136 mmol/L 136 - 145 mmol/L [facility] Urea nitrogen [Mass/Vol] 5 mg/dL Low 9 - 23 mg/dL [facility] DRUGS OF ABUSEon 08-03-2024 AMPHETAMINE SCREEN Negative Normal [facility] Comment on above: Performed By: #### L [id number] ####Assistant Track Coach: REINIER ZHU ([id number])[facility] ([facility])[address] [place] [address] BARBITURATES SCREEN Negative Normal [facility] Comment on above: Performed By: #### L [id number] ####Assistant Track Coach: REINIER ZHU ([id number])[facility] ([facility])[address] BENZODIAZEPINE SCREEN Negative Normal [facility] Comment on above: Performed By: #### L [id number] ####Assistant Track Coach: REINIER ZHU ([id number])[facility] ([facility])[address] COCAINE METAB. SCREEN Negative Normal [facility] Comment on above: Performed By: #### L [id number] ####Assistant Track Coach: REINIER ZHU ([id number])[facility] ([facility])[address] FENTANYL SCREEN, UR QUAL Negative Normal [facility] Comment on [...] under separate order. Performed By: #### L [id number] ####Assistant Track Coach: REINIER ZHU ([id number])[facility] ([facility])[address] METHADONE SCREEN Negative Normal [facility] Comment on above: Performed By: #### L [id number] ####Assistant Track Coach: REINIER ZHU ([id number])[facility] ([facility])[address] OPIATES SCREEN Negative Normal [facility] Comment on above: Performed By: #### L [id number] ####Assistant Track Coach: REINIER ZHU ([id number])[facility] ([facility])[address] OXYCODONE SCREEN Negative Normal [facility] Comment on above: Performed By: #### L [id number] ####Assistant Track Coach: REINIER OVIEDOBriseidaROGER ([id number])[facility] ([facility])[address] PHENCYCLIDINE SCREEN Negative Normal [facility] Comment on above: Performed By: #### L [id number] ####Assistant Track Coach: REINIER MARKO ([phone])[facility] ([facility])[address] ED Nursing Noteon 08-03-2024 ED Nursing Note Called report to RN at [facility]. Normal [facility] ED Nursing Note Patient here for a rash on his right rib area around to his back. Burning and painful. Patient also wants to be in rehab for his drinking his last drink was today and he drinks at least 8 tall boys per day. Normal [facility] ED Provider Noteon ED Provider Note Normal [facility] ETHANOLon 08-03-2024 ETHANOL IN SER/PLAS 375 mg/dL Critically high <10 [facility] Comment on above: Result Comment: [place] R COMMENTS: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NOTE: This result is for medical treatment only. Analysis performed using non-forensic procedures. Performed By: #### L [id number], [id number] ####Assistant Track Coach: REINIER ZHU ([phone])[facility] ([facility])[address] [place] [address] Ethanol (Bld) [Mass/Vol]Orde red By: Jacqueline Smith on 08-03-2024 Ethanol [Mass/Vol] 375 mg/dL Critically high NINF - 10 mg/dL [facility] Interpretation and review of laboratory results Abnormal [facility] HOME HEALTH CARE CASE MANAGER depression is se en >100 mg/dL. NOTE: This result is for medical treatment only. Analysis performed using non-forensic procedures. [facility] Laboratory - Drug toxicology on 08-03-2024 Amphetamines Screen method >1000 ng/mL Ql (U) Negative [facility] Barbiturates Screen method >200 ng/mL Ql (U) Negative [facility] H ealth Benzodiazepines Ql (U) Negative [facility] Methadone Screen Ql (U) Negative [facility] Opiates Screen Ql (U) Negative [facility] oxyCODONE Ql (U) Negative [facility] He alth Phencyclidine Ql (U) Negative [facility] Laboratory - Microbiology an d Antimicrobial susceptibilityOrdered By: Chip Clinton on 08-03-2024 SARS-CoV-2 (COVID-19) Ag IA.rapid Ql (Resp) Negative Negative [facility] Comment on above: A negative result do es not rule out the possibility of SARS-CoV-2 infection. NAAT-based methods should be considered for symptomatic patients presenting greater than seven days after onset of symptoms. Method: Lateral flow immunoassay. Fact sheets for healthcare providers and patients can be found at the following sites: https://www.fda.gov/media/483607/download https://www.[employer].gov/media/263170/download No Panel Informationon 08-03 COCAINE METAB. SCREEN Negative [facility] FENTANYL SCREEN, UR QUAL Negative [facility] The expected value f or all [...] is needed, request confirmation under separate order. [facility] SARS-COV-2 ANTIGENon 025 SARS-COV-2 ANTIGEN Normal [facility] Comment on above: Performed By: #### L [id number] ####Assistant Track Coach: REINIER ZHU ([id number])[facility] ([facility])[address] [place] [address] SARS-CoV-2 (COVID-19) Ag IA. rapid Ql (Resp)Ordered By: Chip Clinton on 08-03-2024 Interpretation and review of laboratory results Normal [facility] 36on 07-16-2024 36 Attempt #3 LVM for patient to call our office to schedule follow up to review CT results. Normal [facility] Progress Noteon 07-03-2024 Progress Note Normal [facility] ED Provider Note Normal [facility] XR Foot - left 2 Viewson 1. No acute finding. Report Dictated on Electronically Signed By: Larry Carvalho MD Electronically Signed Date/Time: 07/01/2024 8:07 PM EDT [facility] Patient Name: MARIA DE JESUS HOGAN : [...] No soft tissue gas or foreign body. [facility] Larry Carvalho MD - 07/01/2024 Patient Name: [...] Electronically Signed Date/Time: 07/01/2024 8:07 PM EDT [facility] Radiology Study observation (narrative) Pedro Alex alth XR Foot - left 2 ViewsOrdere d By: Larry Carvalho on 07-01-2024 [facility] [employer] Work Phone: 36on 06-25-2024 36 LVM for patient to call our office to reschedule missed appointment with ML. Will send [employer] software message as well. Normal [facility] 36on 06-23-2024 36 Normal [facility] 36 Normal [facility] 36on 06-19-2024 36 Normal [facility] Progress Noteon 06-16-2024 Progress Note Normal [facility] CT CHEST WO IV CONTRASTon CT CHEST WO IV CONTRAST Normal [facility] 36on 06-08-2024 36 We have been unable to reach your patient to schedule their testing. Test Name: US abdomen complete 1st attempt, via [employer] software message, 05/23/24 JS 2nd attempt called LVM. TE to office. sent [employer] software message. 06/08/24 LR Normal [facility] 36on 06-05-2024 36 LVM Normal [facility] [id number] 06-04-2024 [id number] Social work consult placed for patient. Notified areas of S NAHOMY noted at current time. Social work consult is cleared. Normal [facility] Nursing Noteon 06-04-2024 Nursing Note Normal [facility] Nursing Note No issue reported after the Naltrexone pill given to the patient. He reports last time he took the medication it really helped his cravings. He reports taking the oral and injection form once in the past. Normal [facility] Nursing Note Normal [facility] Nursing Note Patient is up and steady, seen socializing in group room. Pt is cooperative and med compliant. Pt denies SI/HI/AVH. Pt encouraged to notify staff for any questions and concerns. Normal [facility] Progress Noteon 06-04-2024 Progress Note Normal [facility] Progress Note Nutrition rescreen completed. Patient assigned a level 1. Normal [facility] [id number] 06-03-2024 [id number] Normal [facility] 36on 06-03-2024 36 LVM for pt to call office to reschedule CT scan and follow up kavon Lara. Normal [facility] 94on 06-03-2024 94 Normal [facility] Nursing Noteon 06-03-2024 Nursing Note Normal [facility] Nursing Note Patient received Nicotine Lozenge as per orders PRN PO at 1340, and 1740. Normal [facility] Nursing Note Med. Rec. Done with Jesse at [facility] at 1230. Normal [facility] Nursing Note Patient received PO PRN Tylenol as per orders at 1228 for lower back arthritis pain. Normal [facility] Nursing Note Patient received Nicotine Lozenge at 1139 and 1705 PRN PO as per orders. Patient received PO PRN Albuterol as per orders at 1705. Normal [facility] Nursing Note Normal [facility] 36on 06-02-2024 36 Normal [facility] 36 Normal [facility] CBC (HEMOGRAM)on 06-02-2024 Erythrocyte distribution width (RBC) [Ratio] 13.4 % Normal 11.5-15.0 [facility] Comment on above: Performed By: #### L [id number] ####Assistant Track Coach: REINIER ZHU ([id number])[facility] ([facility])[address] [place] [address] Hematocrit (Bld) [Volume fraction] 45.6 % Normal 40.0-52.0 [facility] Comment on above: Performed By: #### L [id number] ####Assistant Track Coach: REINIER ZHU ([id number])[facility] ([facility])[address] [place] [address] Hemoglobin (Bld) [Mass/Vol] 15.8 g/dL Normal 13.0-18.0 [facility] Comment on above: Performed By: #### L [id number] ####Assistant Track Coach: REINIER ZHU ([id number])[facility] ([facility])[address] [place] [address] MCH (RBC) [Entitic mass] 33.1 pg Normal 26.0-34.0 [facility] Comment on above: Performed By: #### L [id number] ####Assistant Track Coach: REINIER ZHU ([id number])[facility] ([facility])[address] MCHC 34.6 % Normal 30.5-36.0 [facility] Comment on above: Performed By: #### L [id number] ####Assistant Track Coach: REINIER ZHU ([id number])[facility] ([facility])[address] MCV (RBC) [Entitic vol] 95.6 fL Normal 77.0-99.0 [facility] Comment on above: Performed By: #### L [id number] ####Assistant Track Coach: REINIER ZHU ([id number])[facility] ([facility])[address] Platelet mean volume (Bld) [Entitic vol] 8.8 fL Low 9.0-12.7 [facility] Comment on above: Performed By: #### L [id number] ####Assistant Track Coach: REINIER ZHU ([id number])[facility] ([facility])[address] Platelets (Bld) [#/Vol] 184 10*3/uL Normal 140-440 [facility] Comment on above: Performed By: #### L [id number] ####Assistant Track Coach: REINIER ZHU ([id number])[facility] (SBHLAB)[address] [place] [address] [place] RBC (Bld) [#/Vol] 4.77 10*6/uL Normal 4.40-5.90 [facility] Comment on above: Performed By: #### L [id number] ####Assistant Track Coach: REINIER ZHU ([id number])[facility] ([facility])[address] [place] [address] [place] WBC (Bld) [#/Vol] 6.7 10*3/uL Normal 3.6-10.7 [facility] Comment on above: Performed By: #### L [id number] ####Assistant Track Coach: REINIER ZHU ([id number])[facility]ER[facility]PITALAnum (SB[facility])[address] CBC panel Auto (Bld)on 06-02 Erythrocyte distribution width (RBC) [Ratio] 13.4 % 11.5 - 15.0 % [facility] Hematocrit (Bld) [Volume fraction] 45.6 % 40.0 - 52.0 % [facility] Hemoglobin (Bld) [Mass/Vol] 15.8 g/dL 13.0 - 18.0 g/dL [facility] Interpretation and review of laboratory results Abnormal [facility] MCH (RBC) [Entitic mass] 33.1 pg 26. 0 - 34.0 pg [facility] MCHC (RBC) [Mass/Vol] 34.6 % 30.5 - 36.0 % [facility] MCV (RBC) [Entitic vol] 95.6 fL 77.0 - 99.0 fL [facility] Platelet mean volume (Bld) [Entitic vol] 8.8 fL Low 9.0 - 12.7 fL [facility] Platelets (Bld) [#/Vol] 184 10*3/uL 140 - 440 10*3/uL [facility] RBC (Bld) [#/Vol] 4.77 10*6/uL 4.40 - 5.9 0 10*6/uL [facility] WBC (Bld) [#/Vol] 6.7 10*3/uL 3.6 - 10.7 10*3/uL [facility] COMPREHENSIVE METABOLIC PANE Arnulfo 06-02-2024 Albumin [Mass/Vol] 3.6 g/dL Normal 3.5-5.0 [facility] Comment on above: Performed By: #### L AB46, LAB17, [id number] ####Assistant Track Coach: REIINER ZHU ([id number])[facility] ([facility])[address] ALP [Catalytic activity/Vol] 110 U/L Normal 40-150 [facility] Comment on above: Performed By: #### L AB46, LAB17, [id number] ####Assistant Track Coach: REINIER ZHU ([phone])[facility]ENTERA VIRAJSIERRA VISTA HOSPITALN (SBHLAB)[address] ALT [Catalytic activity/Vol] 44 U/L High <40 [facility] Comment on above: Performed By: #### L AB46, LAB17, [id number] ####Assistant Track Coach: REINIER ZHU ([id number])[facility] [place] ([facility])[address] Anion gap [Moles/Vol] 14 mmol/L High 3-13 [facility] Comment on above: Performed By: #### Jose Carlos AB46, LAB17, [id number] ####Assistant Track Coach: REINIER ZHU ([id number])[facility] ([facility])[address] AST [Catalytic activity/Vol] 49 U/L High <34 [facility] Comment on above: Performed By: #### Jose Carlos SHORE46, LAB17, [id number] ####Assistant Track Coach: REINIER ZHU ([id number])[facility] ([facility])[address] Bilirubin [Mass/Vol] 0.4 mg/dL Normal <1.2 [facility] Comment on above: Performed By: #### Jose Carlos ARREDONDO, LAB17, [id number] ####Assistant Track Coach: REINIER ZHU ([id number])[facility] ([facility])[address] Calcium [Mass/Vol] 8.9 mg/dL Normal 8.4-10.2 [facility] Comment on above: Performed By: #### L AB46, LAB17, [id number] ####Assistant Track Coach: REINIER ZHU ([id number])[facility] ([facility])[address] [place] [address] [place] Chloride [Moles/Vol] 97 mmol/L Low 98-107 [facility] Comment on above: Performed By: #### L AB46, LAB17, [id number] ####Assistant Track Coach: REINIER BATISTACER ([id number])[facility] ([facility])[address] CO2 [Moles/Vol] 23 mmol/L Normal 22-29 [facility] Comment on above: Performed By: #### L AB46, LAB17, [id number] ####Assistant Track Coach: REINEIR OVIEDOBriseidaROGER ([id number])[facility] ([facility])[address] Creatinine [Mass/Vol] 0.59 mg/dL Low 0.72-1.25 [facility] Comment on above: Performed By: #### L AB46, LAB17, [id number] ####Assistant Track Coach: REINIER MORINROGER ([id number])[facility] ([facility])[address] GLOMERULAR FILTRATION RATE ML/MIN/1.73 SQ M.PREDICTED >90.0 Normal >60.0 [facility] Comment on above: Result Comment: Calc ulation based on the Chronic Kidney Disease Epidemiology Collaboration (CKD-EPI) equation refit without adjustment for race Performed By: #### L AB46, LAB17, [id number] ####Assistant Track Coach: REINIER ZHU ([id number])[facility] ([facility])[address] Glucose [Mass/Vol] 85 mg/dL Normal 74-100 [facility] Comment on above: Performed By: #### L AB46, LAB17, [id number] ####Assistant Track Coach: REINIER OVIEDOTORSTENROGER ([phone])[facility] ([facility])[address] Potassium [Moles/Vol] 4.2 mmol/L Normal 3.5-5.1 [facility] Comment on above: Result Comment: [facility] potassium values may be up to 0.5 mmol/L lower than serum values. Performed By: #### L AB46, LAB17, [id number] ####Assistant Track Coach: REINIER BATISTACER ([phone])[facility] ([facility])[address] Protein [Mass/Vol] 7.2 g/dL Normal 6.4-8.3 [facility] Comment on above: Performed By: #### L AB46, LAB17, [id number] ####Assistant Track Coach: REINIER ZHU ([id number])[facility]A [facility]IERRA [facility]A HOSPITALN (SB[facility])[address] Sodium [Moles/Vol] 134 mmol/L Low 136-145 [facility] Comment on above: Performed By: #### L AB46, LAB17, [id number] ####Assistant Track Coach: REINIER OVIEDOVINAYAK ([phone])[facility] ([facility])[address] [place] [address] Urea nitrogen [Mass/Vol] 3 mg/dL Low 9-23 [facility] Comment on above: Performed By: #### L AB46, LAB17, [id number] ####Assistant Track Coach: REINIER OVIEDOVINAYAK ([id number])[facility] ([facility])[address] Comprehensive metabolic 1998 panelon 06-02-2024 Albumin [Mass/Vol] 3.6 g/dL 3.5 - 5.0 g/dL [facility] ALP [Catalytic activity/Vol] 110 U/L 40 - 150 U/L [facility] ALT [Catalytic activity/Vol] 44 U/L High NINF - 40 U/L [facility] Anion gap [Moles/Vol] 14 mmol/L High 3 - 13 mmol/L [facility] AST [Catalytic activity/Vol] 49 U/L High NINF - 34 U/L [facility] Bilirubin [Mass/Vol] 0.4 mg/dL NINF - 1.2 mg/dL [facility] Calcium [Mass/Vol] 8.9 mg/dL 8.4 - 10. 2 mg/dL [facility] Chloride [Moles/Vol] 97 mmol/L Low 98 - 10 7 mmol/L [facility] CO2 [Moles/Vol] 23 mmol/L 22 - 29 mmol/L [facility] Creatinine [Mass/Vol] 0.59 mg/dL Low 0.72 - 1.25 mg/dL [facility] GFR/1.73 sq M.predicted (S/P/Bld) [Vol rate/Area] - PINF [facility] Comment on above: Calculation based on the Chronic Kidney Disease Epidemiology Collaboration (CKD-EPI) equation refit without adjustment for race Glucose [Mass/Vol] 85 mg/dL 74 - 100 mg/dL [facility] Potassium [Moles/Vol] 4.2 mmol/L 3.5 - 5.1 mmol/L [facility] Comment on above: Plasma potassium juan ues may be up to 0.5 mmol/L lower than serum values. Protein [Mass/Vol] 7.2 g/dL 6.4 - 8.3 g/dL [facility] Sodium [Moles/Vol] 134 mmol/L Low 136 - 145 mmol/L [facility] Urea nitrogen [Mass/Vol] 3 mg/dL Low 9 - 23 mg/dL [facility] DRUGS OF ABUSEon 06-02-2024 AMPHETAMINE SCREEN Negative Normal [facility] Comment on above: Performed By: #### L [id number] ####Assistant Track Coach: REINIER ZHU ([id number])[facility] ([facility])[address] [place] [address] BARBITURATES SCREEN Positive Normal [facility] Comment on above: Performed By: #### L [id number] ####Assistant Track Coach: REINIER ZHU ([id number])[facility] ([facility])[address] [place] [address] BENZODIAZEPINE SCREEN Negative Normal [facility] Comment on above: Performed By: #### L [id number] ####Assistant Track Coach: REINIER ZHU ([id number])[facility] ([facility])[address] [place] [address] COCAINE METAB. SCREEN Negative Normal [facility] Comment on above: Performed By: #### L [id number] ####Assistant Track Coach: REINIER ZHU ([id number])[facility] ([facility])[address] [place] [address] FENTANYL SCREEN, UR QUAL Negative Normal [facility] Comment on above: Result [...] under separate order. Performed By: #### L [id number] ####Assistant Track Coach: REINIER ZHU ([id number])[facility] ([facility])[address] [place] [address] METHADONE SCREEN Negative Normal [facility] Comment on above: Performed By: #### L [id number] ####Assistant Track Coach: REINIER ZHU ([id number])[facility] ([facility])[address] [place] [address] OPIATES SCREEN Negative Normal [facility] Comment on above: Performed By: #### L [id number] ####Assistant Track Coach: REINIER ZHU ([id number])[facility] ([facility])[address] OXYCODONE SCREEN Negative [facility] Comment on above: Performed By: #### L [id number] ####Assistant Track Coach: REINIER ZHU ([id number])[facility] ([facility])[address] [place] [address] PHENCYCLIDINE SCREEN Negative Normal [facility] Comment on above: Performed By: #### L [id number] ####Assistant Track Coach: REINIER ZHU ([id number])[facility] ([facility])[address] ED Nursing Noteon 06-02-2024 ED Nursing Note Called report to Veronica @ 4E Normal [facility] ED Nursing Note Pt normally drink 6- 9 tall boys daily. Today pt only drank 3 and his last drink was about 5pm today. Normal [facility] ED Nursing Note Pt last drink 30 minutes ago. Pt drank 3 tallboys today. Normally drinks 6-9 tallboys. Would like to get detoxed Normal [facility] ED Provider Noteon ED Provider Note Normal [facility] ETHANOLon 06-02-2024 ETHANOL IN SER/PLAS 110 mg/dL High <10 [facility] Comment on above: Result Comment: [place] Lagunas COMMENTS: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NOTE: This result is for medical treatment only. Analysis performed using non-forensic procedures. Performed By: #### L AB46, LAB17, [id number] ####Assistant Track Coach: REINIER ZHU ([phone])[facility] ([facility])[address] [place] [address] Ethanol (Bld) [Mass/Vol]on 0 06-02-2024 Ethanol [Mass/Vol] 110 mg/dL High NINF - 10 mg/dL [facility] HOME HEALTH CARE CASE MANAGER depression is se en >100 mg/dL. NOTE: This result is for medical treatment only. Analysis performed using non-forensic procedures. [facility] Laboratory - Chemistry and C hemistry - challengeon 06-02-2024 Magnesium [Mass/Vol] 2 mg/dL 1.6 - 2 .6 mg/dL [facility] Laboratory - Drug toxicology on 06-02-2024 Amphetamines Screen method >1000 ng/mL Ql (U) Negative [facility] Barbiturates Screen method >200 ng/mL Ql (U) [facility] Benzodiazepines Ql (U) Negative [facility] Methadone Screen Ql (U) Negative [facility] Opiates Screen Ql (U) Negative [facility] oxyCODONE Ql (U) Negative [facility] Phencyclidine Ql (U) Negative [facility] Laboratory - Microbiology an d Antimicrobial susceptibilityOrdered By: Johnathan Giron on 06-02-2024 SARS-CoV-2 (COVID-19) Ag IA.rapid Ql (Resp) Negative Negative [facility] Comment on above: A negative result do es not rule out the possibility of SARS-CoV-2 infection. NAAT-based methods should be considered for symptomatic patients presenting greater than seven days after onset of symptoms. Method: Lateral flow immunoassay. Fact sheets for healthcare providers and patients can be found at the following sites: https://www.[employer].gov/media/697449/download https://www.[employer].gov/media/226949/download MAGNESIUMon 06-02-2024 Magnesium [Mass/Vol] 2.0 mg/dL Normal 1.6-2.6 [facility] Comment on above: Result Comment: [place] Lagunas COMMENTS:Higher values can be expected in females during menses. Performed By: #### L AB46, LAB17, [id number] ####Assistant Track Coach: REINIER ZHU ([phone])[facility] ([facility])[address] [place] [address] Magnesium [Mass/Vol]on 06-02 Interpretation and review of laboratory results Normal [facility] Higher values can be expected in females during menses. [facility] No Panel Informationon 06-02 COCAINE METAB. SCREEN Negative [facility] FENTANYL SCREEN, UR QUAL Negative [facility] The expected value f or all [...] is needed, request confirmation under separate order. [facility] Interpretation and review of laboratory results Abnormal [facility] SARS-COV-2 ANTIGENon 025 SARS-COV-2 ANTIGEN Normal [facility] Comment on above: Performed By: #### L [id number] ####Assistant Track Coach: REINIER ZHU ([id number])[facility] ([facility])[address] [place] [address] SARS-CoV-2 (COVID-19) Ag IA. rapid Ql (Resp)Ordered By: Johnathan Giron on 06-02-2024 Interpretation and review of laboratory results Normal [facility] Progress Noteon 05-28-2024 Progress Note Normal [facility] CT CERVICAL SPINE WO IV CONT RASTon 05-25-2024 CT CERVICAL SPINE WO IV CONTRAST Normal [facility] CT Cervical spine WO contras ton 05-25-2024 Patient Name: MARIA DE JESUS HOGAN : [...] stenosis. Multilevel uncovertebral hypertrophy and facet hypertrophy. [facility] Cezar Smith MD - 05/25/2024 [...] MD Electronically Signed Date/Time: 05/25/2024 4:[address] [facility] Radiology Study observation (narrative) [facility] alth CT HEAD WO IV CONTRASTon CT HEAD WO IV CONTRAST Normal [facility] CT Head WO contraston 2024 Patient Name: [facility]ES[facility] 1965 [id number] Exam Date/Time: 05/25/2024 15:59 Procedure: CT HEAD [...] stenosis. Multilevel uncovertebral hypertrophy and facet hypertrophy. [facility] Cezar Smith MD - 05/25/2024 Patient Name: MARIA DE JESUS HOGAN [facility] 1965 [id number] Exam Date/Time: 05/25/2024 15:59 Procedure: CT HEAD [...] Electronically Signed Date/Time: 05/25/2024 4:39 PM EST [facility] Radiology Study observation (narrative) [facility] ED Nursing Noteon 05-25-2024 ED Nursing Note Pt was seen standing in his room and closed the curtain. Normal [facility] ED Nursing Note Patient to room 7 wi th c/o a fall down steps today, and hitting his head. Patient has been drinking alcohol today and reports he has drank 3 tall boys today. V/S obtained call light within reach. Normal [facility] ED Provider Noteon ED Provider Note Normal [facility] No Panel Informationon 05-[address] evidence of an acute intracranial abnormality. No evidence of acute cervical spine fracture. Degenerative changes as discussed. Anatomic Variant: None. Assume 7 cervical vertebrae with counting from the craniocervical junction. Report Dictated on Electronically Signed By: Cezar Smith MD Electronically Signed Date/Time: 05/25/2024 4:39 PM [facility] No Panel InformationOrdered By: Cezar Smith on 05-25-2024 [facility] Work Phone: 36on 05-23-2024 36 We have been unable to reach your patient to schedule their testing. Test Name: TTE 2nd attempt, my chart message, TE to office, cancel request on 05/20/24. JS 1st attempt LVM on 08.10.22 SDS [facility] Progress Noteon 05-20-2024 Progress Note Normal [facility] Progress Noteon 05-14-2024 Progress Note Missed Session Unexcused Pt did not call or show for Scheduled Assessment on this date. [facility] 36on 05-13-2024 36 Appointment rescheduled. [facility] 36 Maria De Jesus Valle [facility] Clinical Bucket Wash Operator (supporting You) 05/12/24 4:20 PM Yes I got my prescriptions filled and take them as instructed sorry my phone has been acting up [facility] 36on 05-12-2024 36 Normal [facility] 36 Please get the patie nt scheduled for a hospital follow-up and asked the transition of care questions thank you [facility] [address] was recently discharged from the hospital [facility] on 05/10/2024. Sending to you for CAROL follow up appointment direction. Normal [facility] Nursing Noteon 05-10-2024 Nursing Note Escorted off unit Normal [facility] Nursing Note Called for krystina chamberlain on way. Given survey and belongings. to be here in 20. Normal [facility] Nursing Note Normal [facility] Nursing Note Asking to be discharged, stated needs to go home today. States will call [facility] himself. Discussed with Dr Thrasher, and he will discharge. [facility] Nursing Note Discussed this sriram weeks meetings, what his plans are for super bowl, IOP. 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 States he and plan on doing more together for health, walks etc. Discussed leisure activity. [facility] Nursing Note Pt up independently, visualized on unit. Pt cooperative with assessment and compliant with medication Normal [facility] 30on 05-09-2024 30 Normal [facility] Nursing Noteon 05-09-2024 Nursing Note Patient is up and steady, withdrawn to room for majority of shift. Pt is cooperative and med compliant. Pt denies SI/HI/AVH. Pt encouraged to notify staff for any questions and concerns. [facility] Progress Noteon 05-09-2024 Progress Note [facility] Progress Note Nutrition rescreen completed. Patient assigned a level 1. Normal [facility] Progress Note [facility] [id number] 05-08-2024 [id number] [facility] CARBOHYDRATE DEFICIENT TRANS FERRINon 05-08-2024 CARBOHYDRATE DEFICIENT TRANSFERRIN 6.8 % High <1.4 [facility] Comment on above: Result Comment: Norm al:0-1.3%Inconclusive: 1.4-1.6%Elevated: greater than or equal to 1.7%Performed via Capillary Electrophoresis Performed By: #### L [id number] ####Assistant Track Coach: CECI DUPREE ([id number])[address] ED Nursing Noteon 05-08-2024 ED Nursing Note Report to Evelyn Watts at [facility] on 4E Normal [facility] ED Nursing Note Report to [facility] a t bedside. Vitals taken. Protective at bedside for final wanding. Belongings, detox rules and paperwork sent with patient/EMS [facility] Nursing Noteon 05-08-2024 Nursing Note [facility] Nursing Note Medication rec. Done with Jace at [facility] at 1200. Normal [facility] Nursing Note Patient received Nicotine Lozenge PRN as per orders at 0850. Normal [facility] Nursing Note Normal [facility] CBC (HEMOGRAM)on 05-07-2024 Erythrocyte distribution width (RBC) [Ratio] 13.4 % Normal 11.5-15.0 [facility] Comment on above: Performed By: #### L [id number] ####Assistant Track Coach: REINIER ZHU ([id number])[facility] [place] ([facility])[address] Hematocrit (Bld) [Volume fraction] 46.7 % Normal 40.0-52.0 [facility] Comment on above: Performed By: #### L [id number] ####Assistant Track Coach: REINIER ZHU ([id number])[facility] ([facility] [place] [address] Hemoglobin (Bld) [Mass/Vol] 16.1 g/dL Normal 13.0-18.0 [facility] Comment on above: Performed By: #### L [id number] ####Assistant Track Coach: REINIER ZHU ([id number])[facility] ([facility] [place] [address] MCH (RBC) [Entitic mass] 32.7 pg Normal 26.0-34.0 [facility] Comment on above: Performed By: #### L [id number] ####Assistant Track Coach: REINIER ZHU ([id number])[facility]ENTER[facility] ([facility])[address] [place] [address] MCHC 34.5 % Normal 30.5-36.0 [facility] Comment on above: Performed By: #### L [id number] ####Assistant Track Coach: REINIER ZHU ([id number])[facility] ([facility] [place] [address] MCV (RBC) [Entitic vol] 94.7 fL Normal 77.0-99.[address] [facility] Comment on above: Performed By: #### L [id number] ####Assistant Track Coach: REINIER ZHU ([id number])[facility] ([facility])[address] Platelet mean volume (Bld) [Entitic vol] 8.8 fL Low 9.0-12.7 [facility] Comment on above: Performed By: #### L [id number] ####Assistant Track Coach: REINIER ZHU ([id number])[facility] ([facility])[address] Platelets (Bld) [#/Vol] 228 10*3/uL Normal 140-440 [facility] Comment on above: Performed By: #### L [id number] ####Assistant Track Coach: REINIER ZHU ([id number])[facility] ([facility])[address] RBC (Bld) [#/Vol] 4.93 10*6/uL Normal 4.40-5.90 [facility] Comment on above: Performed By: #### L [id number] ####Assistant Track Coach: REINIER ZHU ([id number])[facility] ([facility])[address] [place] [address] WBC (Bld) [#/Vol] 5.7 10*3/uL Normal 3.6-10.7 [facility] Comment on above: Performed By: #### L [id number] ####Assistant Track Coach: REINIER ZHU ([id number])[facility] ([facility])[address] [place] [address] CBC panel Auto (Bld)on 05-07 Erythrocyte distribution width (RBC) [Ratio] 13.4 % 11.5 - 15.0 % [facility] Hematocrit (Bld) [Volume fraction] 46.7 % 40.0 - 52.0 % [facility] Hemoglobin (Bld) [Mass/Vol] 16.1 g/dL 13.0 - 18.0 g/dL [facility] Interpretation and review of laboratory results Abnormal [facility] MCH (RBC) [Entitic mass] 32.7 pg 26. 0 - 34.0 pg [facility] MCHC (RBC) [Mass/Vol] 34.5 % 30.5 - 36.0 % [facility] MCV (RBC) [Entitic vol] 94.7 fL 77.0 - 99.0 fL [facility] Platelet mean volume (Bld) [Entitic vol] 8.8 fL Low 9.0 - 12.7 fL [facility] Platelets (Bld) [#/Vol] 228 10*3/uL 140 - 440 10*3/uL [facility] RBC (Bld) [#/Vol] 4.93 10*6/uL 4.40 - 5.9 0 10*6/uL [facility] WBC (Bld) [#/Vol] 5.7 10*3/uL 3.6 - 10.7 10*3/uL [facility] COMPREHENSIVE METABOLIC PANE Arnulfo 05-07-2024 Albumin [Mass/Vol] 4.0 g/dL Normal 3.5-5.0 [facility] Comment on above: Performed By: #### Jose Carlos LAWS, LAB17, LAB46 ####Assistant Track Coach: REINIER ZHU ([id number])[facility] [place] ([facility])[address] ALP [Catalytic activity/Vol] 98 U/L Normal 40-150 [facility] Comment on above: Performed By: #### Jose Carlos LWAS, LAB17, LAB46 ####Assistant Track Coach: REINIER ZHU ([id number])[facility] ([facility])[address] ALT [Catalytic activity/Vol] 105 U/L High <40 [facility] Comment on above: Performed By: #### Jose Carlos LAWS, LAB17, LAB46 ####Assistant Track Coach: REINIER ZHU ([id number])[facility] [place] ([facility])[address] Anion gap [Moles/Vol] 15 mmol/L High 3-13 [facility] Comment on above: Performed By: #### Jose Carlos LAWS, LAB17, LAB46 ####Assistant Track Coach: REINIER ZHU ([id number])[facility] [place] ([facility])[address] [place] [address] [place] AST [Catalytic activity/Vol] 99 U/L High <34 [facility] Comment on above: Performed By: #### Jose Carlos LAWS, LAB17, LAB46 ####Assistant Track Coach: REINIER ZHU ([id number])[facility] [place] ([facility])[address] Bilirubin [Mass/Vol] 0.4 mg/dL Normal <1.2 [facility] Comment on above: Performed By: #### Jose Carlos LAWS, LAB17, LAB46 ####Assistant Track Coach: REINIER ZHU ([id number])[facility] [place] ([facility])[address] Calcium [Mass/Vol] 9.1 mg/dL Normal 8.4-10.2 [facility] Comment on above: Performed By: #### Jose Carlos LAWS, LAB17, LAB46 ####Assistant Track Coach: REINIER ZHU ([id number])[facility] [place] ([facility])[address] [place] [address] [place] Chloride [Moles/Vol] 96 mmol/L Low 98-107 [facility] Comment on above: Performed By: #### Jose Carlos LAWS, LAB17, LAB46 ####Assistant Track Coach: REINIER ZHU ([id number])[facility] [place] ([facility])[address] [place] [address] [place] CO2 [Moles/Vol] 26 mmol/L Normal 22-29 [facility] Comment on above: Performed By: #### Jose Carlos LAWS, LAB17, LAB46 ####Assistant Track Coach: REINIER ZHU ([id number])[facility] [place] ([facility])[address] [place] [address] [place] Creatinine [Mass/Vol] 0.73 mg/dL Normal 0.72-1.25 [facility] Comment on above: Performed By: #### Jose Carlos LAWS, LAB17, LAB46 ####Assistant Track Coach: REINIER ZHU ([id number])[facility] [place] ([facility])[address] GLOMERULAR FILTRATION RATE ML/MIN/1.73 SQ M.PREDICTED >90.0 Normal >60.0 [facility] Comment on above: Result Comment: Calc ulation based on the Chronic Kidney Disease Epidemiology Collaboration (CKD-EPI) equation refit without adjustment for race Performed By: #### Jose Carlos LAWS, LAB17, LAB46 ####Assistant Track Coach: REINIER ZHU ([id number])[facility] (SB[facility])[address] Glucose [Mass/Vol] 92 mg/dL Normal 74-100 [facility] Comment on above: Performed By: #### Jose Carlos LAWS, LAB17, LAB46 ####Assistant Track Coach: REINIER ZHU ([id number])[facility] ([facility])[address] Potassium [Moles/Vol] 4.1 mmol/L Normal 3.5-5.1 [facility] Comment on above: Result Comment: [facility] potassium values may be up to 0.5 mmol/L lower than serum values. Performed By: #### Jose Carlos LAWS, LAB17, LAB46 ####Assistant Track Coach: REINIER ZHU ([id number])[facility] (HLAB)[address] Protein [Mass/Vol] 7.2 g/dL Normal 6.4-8.3 [facility] Comment on above: Performed By: #### Jose Carlos LAWS, LAB17, LAB46 ####Assistant Track Coach: REINIER ZHU ([phone])[facility] ([facility])[address] [place] [address] [place] Sodium [Moles/Vol] 137 mmol/L Normal 136-145 [facility] Comment on above: Performed By: #### Jose Carlos LAWS, LAB17, LAB46 ####Assistant Track Coach: REINIER ZHU ([id number])[facility] ([facility])[address] [place] [address] [place] Urea nitrogen [Mass/Vol] 3 mg/dL Low 9-23 [facility] Comment on above: Performed By: #### L AB103, LAB17, LAB46 ####Assistant Track Coach: REINIER ZHU ([id number])[facility] ([facility])[address] [place] [address] Comprehensive metabolic 1998 panelon 05-07-2024 Albumin [Mass/Vol] 4 g/dL 3.5 - 5.0 g/dL [facility] ALP [Catalytic activity/Vol] 98 U/L 40 - 150 U/L [facility] ALT [Catalytic activity/Vol] 105 U/L High NINF - 40 U/L [facility] Anion gap [Moles/Vol] 15 mmol/L High 3 - 13 mmol/L [facility] AST [Catalytic activity/Vol] 99 U/L High NINF - 34 U/L [facility] Bilirubin [Mass/Vol] 0.4 mg/dL NINF - 1.2 mg/dL [facility] Calcium [Mass/Vol] 9.1 mg/dL 8.4 - 10. 2 mg/dL [facility] Chloride [Moles/Vol] 96 mmol/L Low 98 - 10 7 mmol/L [facility] CO2 [Moles/Vol] 26 mmol/L 22 - 29 mmol/L [facility] Creatinine [Mass/Vol] 0.73 mg/dL 0.72 - 1.25 mg/dL [facility] GFR/1.73 sq M.predicted (S/P/Bld) [Vol rate/Area] - PINF [facility] Comment on above: Calculation based on the Chronic Kidney Disease Epidemiology Collaboration (CKD-EPI) equation refit without adjustment for race Glucose [Mass/Vol] 92 mg/dL 74 - 100 mg/dL [facility] Interpretation and review of laboratory results Abnormal [facility] Potassium [Moles/Vol] 4.1 mmol/L 3.5 - 5.1 mmol/L [facility] Comment on above: Plasma potassium juan ues may be up to 0.5 mmol/L lower than serum values. Protein [Mass/Vol] 7.2 g/dL 6.4 - 8.3 g/dL [facility] Sodium [Moles/Vol] 137 mmol/L 136 - 145 mmol/L [facility] Urea nitrogen [Mass/Vol] 3 mg/dL Low 9 - 23 mg/dL [facility] DRUGS OF ABUSEon 05-07-2024 AMPHETAMINE SCREEN Negative Normal [facility] Comment on above: Performed By: #### L [id number] ####Assistant Track Coach: REINIER ZHU ([id number])[facility] (SB[facility])[address] BARBITURATES SCREEN Negative Normal [facility] Comment on above: Performed By: #### L [id number] ####Assistant Track Coach: REINIER ZHU ([id number])[facility] (SBHL[facility])[address] BENZODIAZEPINE SCREEN Negative Normal [facility] Comment on above: Performed By: #### L [id number] ####Assistant Track Coach: REINIER ZHU ([id number])[facility] (SB[facility])[address] COCAINE METAB. SCREEN Negative Normal [facility] Comment on above: Performed By: #### L [id number] ####Assistant Track Coach: REINIER ZHU ([id number])[facility] (SB[facility])[address] FENTANYL SCREEN, UR QUAL Negative Normal [facility] Comment on [...] under separate order. Performed By: #### L [id number] ####Assistant Track Coach: REINIER ZHU ([id number])[facility] ([facility])[address] METHADONE SCREEN Negative [facility] Comment on above: Performed By: #### L [id number] ####Assistant Track Coach: REINIER ZHU ([id number])[facility] [place] ([facility])[address] OPIATES SCREEN Negative Normal [facility] Comment on above: Performed By: #### L [id number] ####Assistant Track Coach: REINIER ZHU ([id number])[facility] [place] ([facility])[address] OXYCODONE SCREEN Negative [facility] Comment on above: Performed By: #### L [id number] ####Assistant Track Coach: REINIER ZHU ([id number])[facility] [place] ([facility])[address] PHENCYCLIDINE SCREEN Negative Normal [facility] Comment on above: Performed By: #### L [id number] ####Assistant Track Coach: REINIER ZHU ([id number])[facility] [place] ([facility])[address] ED Nursing Noteon 05-07-2024 ED Nursing Note Security at bedside for a belongings check Normal [facility] ED Nursing Note Normal [facility] ED Nursing Note [facility] at [facility] de speaking with pt. Normal [facility] ED Provider Noteon ED Provider Note Normal [facility] ETHANOLon 05-07-2024 ETHANOL IN SER/PLAS 351 mg/dL Critically high <10 [facility] Comment on above: Result Comment: [place] R COMMENTS: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NOTE: This result is for medical treatment only. Analysis performed using non-forensic procedures. Performed By: #### L AB103, LAB17, LAB46 ####Assistant Track Coach: REINIER ZHU ([id number])[facility] [place] ([facility])[address] Ethanol (Bld) [Mass/Vol]Orde red By: Johnathan Giron on 05-07-2024 Ethanol [Mass/Vol] 351 mg/dL Critically high NINF - 10 mg/dL [facility] Interpretation and review of laboratory results Abnormal [facility] HOME HEALTH CARE CASE MANAGER depression is se en >100 mg/dL. NOTE: This result is for medical treatment only. Analysis performed using non-forensic procedures. [facility] Laboratory - Chemistry and C hemistry - challengeon 05-07-2024 Magnesium [Mass/Vol] 2 mg/dL 1.6 - 2 .6 mg/dL [facility] Laboratory - Drug toxicology on 05-07-2024 Amphetamines Screen method >1000 ng/mL Ql (U) Negative [facility] Barbiturates Screen method >200 ng/mL Ql (U) Negative [facility] ealth Benzodiazepines Ql (U) Negative [facility] Methadone Screen Ql (U) Negative [facility] Opiates Screen Ql (U) Negative [facility] oxyCODONE Ql (U) Negative [facility] He alth Phencyclidine Ql (U) Negative [facility] Laboratory - Microbiology an d Antimicrobial susceptibilityOrdered By: Jacqueline Smith on 05-07-2024 SARS-CoV-2 (COVID-19) Ag IA.rapid Ql (Resp) Negative Negative [facility] Comment on above: A negative result do es not rule out the possibility of SARS-CoV-2 infection. NAAT-based methods should be considered for symptomatic patients presenting greater than seven days after onset of symptoms. Method: Lateral flow immunoassay. Fact sheets for healthcare providers and patients can be found at the following sites: https://www.fda.gov/media/736230/download https://www.fda.gov/media/424685/download MAGNESIUMon 05-07-2024 Magnesium [Mass/Vol] 2.0 mg/dL Normal 1.6-2.6 [facility] Comment on above: Result Comment: [place] R COMMENTS:Higher values can be expected in females during menses. Performed By: #### L AB103, LAB17, LAB46 ####Assistant Track Coach: REINIER ZHU ([phone])[facility] ([facility])[address] [place] [address] Magnesium [Mass/Vol]on 05-07 Interpretation and review of laboratory results Normal [facility] Higher values can be expected in females during menses. [facility] No Panel Informationon 05-07 COCAINE METAB. SCREEN Negative [facility] FENTANYL SCREEN, UR QUAL Negative [facility] The expected value f or all [...] needed, request confirmation under separate order. [facility] Progress Noteon 05-07-2024 Progress Note Normal [facility] SARS-COV-2 ANTIGENon 025 SARS-COV-2 ANTIGEN Normal [facility] Comment on above: Performed By: #### L [id number] ####Assistant Track Coach: REINIER ZHU ([id number])[facility] ([facility])[address] [place] [address] SARS-CoV-2 (COVID-19) Ag IA. rapid Ql (Resp)Ordered By: Jacqueline Smith on 05-07-2024 Interpretation and review of laboratory results Normal [facility] 36on 04-27-2024 36 Normal [facility] 36 Schedule a hospital follow-up Normal [facility] 30on 04-12-2024 30 Normal [facility] Progress Noteon 04-12-2024 Progress Note Normal [facility] 30on 04-11-2024 30 Normal [facility] 30 Normal [facility] CBC W Auto Differential pane l (Bld)on 04-11-2024 Basophils (Bld) [#/Vol] 0 10*3/uL 0.0 - 0.2 10*3/uL [facility] Basophils/100 WBC (Bld) 0.9 % 0.0 - 2.0 % [facility] Eosinophils (Bld) [#/Vol] 0.1 10*3/uL 0.0 - 0.5 10*3/uL [facility] Eosinophils/100 WBC (Bld) 1.9 % 0.0 - 6.0 % [facility] Erythrocyte distribution width (RBC) [Ratio] 12.7 % 11.5 - 15.0 % [facility] Hematocrit (Bld) [Volume fraction] 42.5 % 40.0 - 52.0 % [facility] Hemoglobin (Bld) [Mass/Vol] 14.6 g/dL 13.0 - 18.0 g/dL [facility] Immature granulocytes (Bld) [#/Vol] 0 10*3/uL NINF - 0.1 10*3/uL [facility] Immature granulocytes/100 WBC (Bld) 0.2 % 0.0 - 2.0 % [facility] Interpretation and review of laboratory results Abnormal [facility] Lymphocytes (Bld) [#/Vol] 0.8 10*3/uL Low 1.0 - 4.3 10*3/uL [facility] Lymphocytes/100 WBC (Bld) 19.7 % 15.0 - 45.0 % [facility] MCH (RBC) [Entitic mass] 33 pg 26. 0 - 34.0 pg [facility] MCHC (RBC) [Mass/Vol] 34.4 % 30.5 - 36.0 % [facility] MCV (RBC) [Entitic vol] 95.9 fL 77.0 - 99.0 fL [facility] Monocytes (Bld) [#/Vol] 0.5 10*3/uL 0.0 - 0.9 10*3/uL [facility] Monocytes/100 WBC (Bld) 12.4 % 5.0 - 13.0 % [facility] Neutrophils (Bld) [#/Vol] 2.8 10*3/uL 1.8 - 7.5 10*3/uL [facility] Neutrophils/100 WBC (Bld) 64.9 % 38.0 - 82.0 % [facility] Nucleated RBC/100 WBC (Bld) [Ratio] 0 % [facility] Platelet mean volume (Bld) [Entitic vol] 9.2 fL 9.0 - 12.7 fL [facility] Platelets (Bld) [#/Vol] 180 10*3/uL 140 - 440 10*3/uL [facility] RBC (Bld) [#/Vol] 4.43 10*6/uL 4.40 - 5.9 0 10*6/uL [facility] WBC (Bld) [#/Vol] 4.3 10*3/uL 3.6 - 10.7 10*3/uL [facility] CBC WITH AUTO DIFFERENTIALon 04-11-2024 Basophils (Bld) [#/Vol] 0.0 10*3/uL Normal 0.0-0.2 [facility] Comment on above: Performed By: #### L [id number] ####Assistant Track Coach: REINIER ZHU ([id number])[facility] ([facility])[address] [place] [address] Basophils/100 WBC (Bld) 0.9 % Normal 0.0-2.[address] [facility] Comment on above: Performed By: #### L [id number] ####Assistant Track Coach: REINIER ZHU ([phone])[facility] ([facility])[address] Eosinophils (Bld) [#/Vol] 0.1 10*3/uL Normal 0.0-0.5 [facility] Comment on above: Performed By: #### L [id number] ####Assistant Track Coach: REINIER ZHU ([id number])[facility] ([facility])[address] Eosinophils/100 WBC (Bld) 1.9 % Normal 0.0-6.0 [facility] Comment on above: Performed By: #### L [id number] ####Assistant Track Coach: REINIER ZHU ([phone])[facility] ([facility])[address] Erythrocyte distribution width (RBC) [Ratio] 12.7 % Normal 11.5-15.0 [facility] Comment on above: Performed By: #### L [id number] ####Assistant Track Coach: REINIER ZHU ([phone])[facility] ([facility])[address] [place] [address] Hematocrit (Bld) [Volume fraction] 42.5 % Normal 40.0-52.0 [facility] Comment on above: Performed By: #### L [id number] ####Assistant Track Coach: REINIER MORINROGER ([phone])[facility] ([facility] Hemoglobin (Bld) [Mass/Vol] 14.6 g/dL Normal 13.0-18.0 [facility] Comment on above: Performed By: #### L [id number] ####Assistant Track Coach: REINIER ZHU ([phone])[facility] ([facility])[address] [place] [address] IMMATURE GRANS % 0.2 % Normal 0.0-2.0 [facility] Comment on above: Performed By: #### L [id number] ####Assistant Track Coach: REINIER MORINROGER ([phone])[facility] ([facility] [place] [address] IMMATURE GRANS ABSOLUTE 0.0 10*3/uL Normal <0.1 [facility] Comment on above: Performed By: #### L [id number] ####Assistant Track Coach: REINIER ZHU ([phone])[facility] ([facility] [place] [address] Lymphocytes (Bld) [#/Vol] 0.8 10*3/uL Low 1.0-4.3 [facility] Comment on above: Performed By: #### L [id number] ####Assistant Track Coach: REINIER ZHU ([phone])[facility] ([facility] Lymphocytes/100 WBC (Bld) 19.7 % Normal 15.0-45.0 [facility] Comment on above: Performed By: #### L [id number] ####Assistant Track Coach: REINIER ZHU ([phone])[facility] ([facility])[address] MCH (RBC) [Entitic mass] 33.0 pg Normal 26.0-34.0 [facility] Comment on above: Performed By: #### L [id number] ####Assistant Track Coach: REINIER MORINROGER ([phone])[facility] ([facility])[address] MCHC 34.4 % Normal 30.5-36.0 [facility] Comment on above: Performed By: #### L [id number] ####Assistant Track Coach: REINIER ZHU ([phone])[facility]ENTER[facility] (SB[facility])[address] MCV (RBC) [Entitic vol] 95.9 fL Normal 77.0-99.0 [facility] Comment on above: Performed By: #### L [id number] ####Assistant Track Coach: REINIER ZHU ([id number])[facility]ENTER[facility] CALI[facility]N (SB[facility])[address] Monocytes (Bld) [#/Vol] 0.5 10*3/uL Normal 0.0-0.9 [facility] Comment on above: Performed By: #### L [id number] ####Assistant Track Coach: REINIER ZHU ([phone])[facility] ([facility])[address] Monocytes/100 WBC (Bld) 12.4 % Normal 5.0-13.0 [facility] Comment on above: Performed By: #### L [id number] ####Assistant Track Coach: REINIER ZHU ([phone])[facility]ENTER[facility] ([facility])[address] NEUTROPHILS ABSOLUTE 2.8 10*3/uL Normal 1.8-7.5 [facility] Comment on above: Performed By: #### L [id number] ####Assistant Track Coach: REINIER ZHU ([phone])[facility] ([facility])[address] Neutrophils/100 WBC (Bld) 64.9 % Normal 38.0-82.0 [facility] Comment on above: Performed By: #### L [id number] ####Assistant Track Coach: REINIER ZHU ([phone])[facility] [place] ([facility])[address] NRBC 0.0 /100 WBCs Normal 0.0-2.0 [facility] Comment on above: Performed By: #### L [id number] ####Assistant Track Coach: REINIER ZHU ([phone])[facility] [place] ([facility])[address] Platelet mean volume (Bld) [Entitic vol] 9.2 fL Normal 9.0-12.7 [facility] Comment on above: Performed By: #### L [id number] ####Assistant Track Coach: REINIER ZHU ([phone])[facility] [place] ([facility])[address] [place] [address] [place] Platelets (Bld) [#/Vol] 180 10*3/uL Normal 140-440 [facility] Comment on above: Performed By: #### L [id number] ####Assistant Track Coach: REINIER ZHU ([id number])[facility] [place] ([facility])[address] [place] [address] [place] RBC (Bld) [#/Vol] 4.43 10*6/uL Normal 4.40-5.90 [facility] Comment on above: Performed By: #### L [id number] ####Assistant Track Coach: REINIER ZHU ([id number])[facility] [place] ([facility])[address] [place] [address] [place] WBC (Bld) [#/Vol] 4.3 10*3/uL Normal 3.6-10.7 [facility] Comment on above: Performed By: #### L [id number] ####Assistant Track Coach: REINIER MARKO ([phone])[facility]ENTER[facility] ([facility])[address] COMPREHENSIVE METABOLIC PANE Arnulfo 04-11-2024 Albumin [Mass/Vol] 3.5 g/dL Normal 3.5-5.0 [facility] Comment on above: Performed By: #### L AB113, LAB17, [id number] ####Assistant Track Coach: REINIER BATISTACER ([id number])[facility] CENTERChika [facility] ([facility])[address] ALP [Catalytic activity/Vol] 82 U/L Normal 40-150 [facility] Comment on above: Performed By: #### L AB113, LAB17, [id number] ####Assistant Track Coach: REINIER MARKO ([phone])[facility]ENTER[facility] (SB[facility])[address] ALT [Catalytic activity/Vol] 122 U/L High <40 [facility] Comment on above: Performed By: #### L AB113, LAB17, [id number] ####Assistant Track Coach: REINIER OVIEDOVINAYAK ([phone])[facility] ([facility])[address] Anion gap [Moles/Vol] 10 mmol/L Normal 3-13 [facility] Comment on above: Performed By: #### L AB113, LAB17, [id number] ####Assistant Track Coach: REINIER BATISTACER ([phone])[facility] (SB[facility])[address] AST [Catalytic activity/Vol] 73 U/L High <34 [facility] Comment on above: Performed By: #### L AB113, LAB17, [id number] ####Assistant Track Coach: REINIER ZHU ([phone])[facility] (SB[facility])[address] Bilirubin [Mass/Vol] 0.7 mg/dL Normal <1.2 [facility] Comment on above: Performed By: #### L AB113, LAB17, [id number] ####Assistant Track Coach: REINIER ZHU ([id number])[facility]ENTER[facility] CALIY[facility]N (SB[facility]AB)[address] Calcium [Mass/Vol] 8.7 mg/dL Normal 8.4-10.2 [facility] Comment on above: Performed By: #### L AB113, LAB17, [id number] ####Assistant Track Coach: REINIER ZHU ([id number])[facility] [place] ([facility])[address] Chloride [Moles/Vol] 100 mmol/L Normal 98-107 [facility] Comment on above: Performed By: #### Jose Carlos ABKaleb, LAB17, [id number] ####Assistant Track Coach: REINIER ZHU ([phone])[facility]ENTER[facility]N (SB[facility])[address] CO2 [Moles/Vol] 22 mmol/L Normal 22-29 [facility] Comment on above: Performed By: #### Jose Carlos ABKaleb, LAB17, [id number] ####Assistant Track Coach: REINIER ZHU ([phone])[facility]ENTERA VIRAJYAZN (SB[facility]AB)[address] Creatinine [Mass/Vol] 0.66 mg/dL Low 0.72-1.25 [facility] Comment on above: Performed By: #### Jose Carlos ABKaleb, LAB17, [id number] ####Assistant Track Coach: REINIER ZHU ([id number])[facility] VIRAJ[facility]N (SB[facility])[address] GLOMERULAR FILTRATION RATE ML/MIN/1.73 SQ M.PREDICTED >90.0 Normal >60.0 [facility] Comment on above: Result Comment: Calc ulation based on the Chronic Kidney Disease Epidemiology Collaboration (CKD-EPI) equation refit without adjustment for race Performed By: #### L AB113, LAB17, [id number] ####Assistant Track Coach: REINIER ZHU ([id number])[facility] ([facility])[address] Glucose [Mass/Vol] 100 mg/dL Normal 74-100 [facility] Comment on above: Performed By: #### L AB113, LAB17, [id number] ####Assistant Track Coach: REINIER ZHU ([id number])[facility]AJ[facility] (SBHL[facility])[address] Potassium [Moles/Vol] 4.1 mmol/L Normal 3.5-5.1 [facility] Comment on above: Result Comment: [facility] potassium values may be up to 0.5 mmol/L lower than serum values. Performed By: #### L AB113, LAB17, [id number] ####Assistant Track Coach: REINIER ZHU ([id number])[facility] ([facility])[address] Protein [Mass/Vol] 6.3 g/dL Low 6.4-8.3 [facility] Comment on above: Performed By: #### Jose Carlos JOHNSON, LAB17, [id number] ####Assistant Track Coach: REINIER ZHU ([id number])[facility] ([facility])[address] Sodium [Moles/Vol] 132 mmol/L Low 136-145 [facility] Comment on above: Performed By: #### L AB113, LAB17, SAT028 ####Assistant Track Coach: REINIER ZHU ([id number])[facility] ([facility])[address] Urea nitrogen [Mass/Vol] 6 mg/dL Low 9-23 [facility] Comment on above: Performed By: #### L AB113, LAB17, [id number] ####Assistant Track Coach: REINIER ZHU ([id number])[facility] ([facility])[address] Comprehensive metabolic 1998 panelon 04-11-2024 Albumin [Mass/Vol] 3.5 g/dL 3.5 - 5.0 g/dL [facility] ALP [Catalytic activity/Vol] 82 U/L 40 - 150 U/L [facility] ALT [Catalytic activity/Vol] 122 U/L High [facility] - 40 U/L [facility] Anion gap [Moles/Vol] 10 mmol/L 3 - 13 mmol/L [facility] AST [Catalytic activity/Vol] 73 U/L High [facility] - 34 U/L [facility] Bilirubin [Mass/Vol] 0.7 mg/dL NINF - 1.2 mg/dL [facility] Calcium [Mass/Vol] 8.7 mg/dL 8.4 - 10. 2 mg/dL [facility] Chloride [Moles/Vol] 100 mmol/L 98 - 10 7 mmol/L [facility] CO2 [Moles/Vol] 22 mmol/L 22 - 29 mmol/L [facility] Creatinine [Mass/Vol] 0.66 mg/dL Low 0.72 - 1.25 mg/dL [facility] GFR/1.73 sq M.predicted (S/P/Bld) [Vol rate/Area] - PINF [facility] Comment on above: Calculation based on the Chronic Kidney Disease Epidemiology Collaboration (CKD-EPI) equation refit without adjustment for race Glucose [Mass/Vol] 100 mg/dL 74 - 100 mg/dL [facility] Interpretation and review of laboratory results Abnormal [facility] Potassium [Moles/Vol] 4.1 mmol/L 3.5 - 5.1 mmol/L [facility] Comment on above: Plasma potassium juan ues may be up to 0.5 mmol/L lower than serum values. Protein [Mass/Vol] 6.3 g/dL Low 6.4 - 8.3 g/dL [facility] Sodium [Moles/Vol] 132 mmol/L Low 136 - 145 mmol/L [facility] Urea nitrogen [Mass/Vol] 6 mg/dL Low 9 - 23 mg/dL [facility] Laboratory - Chemistry and C hemistry - challengeon 04-11-2024 Magnesium [Mass/Vol] 1.8 mg/dL 1.6 - 2 .6 mg/dL [facility] MAGNESIUMon 04-11-2024 Magnesium [Mass/Vol] 1.8 mg/dL Normal 1.6-2.6 [facility] Comment on above: Result Comment: ORDE R COMMENTS:Higher values can be expected in females during menses. Performed By: #### L AB113, LAB17, [id number] ####Assistant Track Coach: REINIER ZHU ([phone])[facility]ENTER[facility] (SBHLAB)[address] [place] [address] [place] Magnesium [Mass/Vol]on 04-11 Higher values can be expected in females during menses. [facility] No Panel Informationon 04-11 Interpretation and review of laboratory results Normal [facility] PHOSPHORUSon 04-11-2024 Phosphate [Mass/Vol] 3.7 mg/dL Normal 2.3-4.7 [facility] Comment on above: Performed By: #### L AB113, LAB17, [id number] ####Assistant Track Coach: REINIER ZHU ([phone])[facility]ENTER[facility] (SBHLAB)[address] [place] [address] [place] Phosphate [Moles/Vol]on 04-01 Phosphate [Mass/Vol] 3.7 mg/dL 2.3 - 4 .7 mg/dL [facility] Progress Noteon 04-11-2024 Progress Note Normal [facility] Progress [facility] Progress Note [facility] Consulton 04-10-2024 Consult Normal [facility] ED Nursing Noteon 04-10-2024 ED Nursing Note Pt sleeping Normal [facility] ED Nursing Note Pt sleeping Normal [facility] ED Nursing Note Pt sleeping Normal [facility] ED Nursing Note Pt sleeping Normal [facility] Laboratory - Drug toxicology Ordered By: Lisa Oates on 04-10-2024 Amphetamines Ql (U) Negative Negative [facility] Barbiturates screen method Nom (U) Negative Negative [facility] Benzodiazepines screen method Nom (U) Negative Negative [facility] Cocaine Ql (U) Negative Negative [facility] Methadone Ql (U) Negative Negative [facility] Opiates Screen Ql (U) Negative Negative [facility] No Panel InformationOrdered By: Lisa Oates on 04-10-2024 OXYCODONE/OXYMORPHONE Negative Negative [facility] PCP Negative Negative [facility] The expected value for the drugs listed [...] treatment only. Analysis performed using non-forensic procedures. [facility] Nursing Noteon 04-10-2024 Nursing Note Pt refusing to let R N put side rail of ED stretcher up. Pt educated on seizure precautions and dangers with withdrawls. Pt still refusing. Will continue to monitor. Normal [facility] CBC W Auto Differential pane l (Bld)on 04-09-2024 Basophils (Bld) [#/Vol] 0.1 10*3/uL 0.0 - 0.2 10*3/uL [facility] Basophils/100 WBC (Bld) 1.4 % 0.0 - 2.0 % [facility] Eosinophils (Bld) [#/Vol] 0.1 10*3/uL 0.0 - 0.5 10*3/uL [facility] Eosinophils/100 WBC (Bld) 2.3 % 0.0 - 6.0 % [facility] Erythrocyte distribution width (RBC) [Ratio] 13 % 11.5 - 15.0 % [facility] Hematocrit (Bld) [Volume fraction] 46.6 % 40.0 - 52.0 % [facility] Hemoglobin (Bld) [Mass/Vol] 16.2 g/dL 13.0 - 18.0 g/dL [facility] Immature granulocytes (Bld) [#/Vol] 0 10*3/uL NINF - 0.1 10*3/uL [facility] Immature granulocytes/100 WBC (Bld) 0.2 % 0.0 - 2.0 % [facility] Interpretation and review of laboratory results Abnormal [facility] Lymphocytes (Bld) [#/Vol] 1.7 10*3/uL 1.0 - 4.3 10*3/uL [facility] Lymphocytes/100 WBC (Bld) 38.4 % 15.0 - 45.0 % [facility] MCH (RBC) [Entitic mass] 33.1 pg 26. 0 - 34.0 pg [facility] MCHC (RBC) [Mass/Vol] 34.8 % 30.5 - 36.0 % [facility] MCV (RBC) [Entitic vol] 95.3 fL 77.0 - 99.0 fL [facility] Monocytes (Bld) [#/Vol] 0.6 10*3/uL 0.0 - 0.9 10*3/uL [facility] Monocytes/100 WBC (Bld) 13.9 % High 5.0 - 13.0 % [facility] Neutrophils (Bld) [#/Vol] 1.9 10*3/uL 1.8 - 7.5 10*3/uL [facility] Neutrophils/100 WBC (Bld) 43.8 % 38.0 - 82.0 % [facility] Nucleated RBC/100 WBC (Bld) [Ratio] 0 % [facility] [facility] Platelet mean volume (Bld) [Entitic vol] 8.8 fL Low 9.0 - 12.7 fL [facility] Platelets (Bld) [#/Vol] 214 10*3/uL 140 - 440 10*3/uL [facility] RBC (Bld) [#/Vol] 4.89 10*6/uL 4.40 - 5.9 0 10*6/uL [facility] WBC (Bld) [#/Vol] 4.4 10*3/uL 3.6 - 10.7 10*3/uL [facility] CBC WITH AUTO DIFFERENTIALon 04-09-2024 Basophils (Bld) [#/Vol] 0.1 10*3/uL Normal 0.0-0.2 [facility] Comment on above: Performed By: #### L [id number] ####Assistant Track Coach: REINIER ZHU ([phone])[facility] ([facility])[address] [place] [address] Basophils/100 WBC (Bld) 1.4 % Normal 0.0-2.0 [facility] Comment on above: Performed By: #### L [id number] ####Assistant Track Coach: REINIER ZHU ([id number])[facility] ([facility])[address] Eosinophils (Bld) [#/Vol] 0.1 10*3/uL Normal 0.0-0.5 [facility] Comment on above: Performed By: #### L [id number] ####Assistant Track Coach: REINIER ZHU ([phone])[facility] [place] ([facility])[address] Eosinophils/100 WBC (Bld) 2.3 % Normal 0.0-6.0 [facility] Comment on above: Performed By: #### L [id number] ####Assistant Track Coach: REINIER ZHU ([phone])[facility] [place] (SB[facility])[address] Erythrocyte distribution width (RBC) [Ratio] 13.0 % Normal 11.5-15.0 [facility] Comment on above: Performed By: #### L [id number] ####Assistant Track Coach: REINIER ZHU ([id number])[facility] [place] (SB[facility])[address] Hematocrit (Bld) [Volume fraction] 46.6 % Normal 40.0-52.0 [facility] Comment on above: Performed By: #### L [id number] ####Assistant Track Coach: REINIER ZHU ([phone])[facility] ([facility])[address] Hemoglobin (Bld) [Mass/Vol] 16.2 g/dL Normal 13.0-18.0 [facility] Comment on above: Performed By: #### L [id number] ####Assistant Track Coach: REINIER ZHU ([phone])[facility] [place] ([facility])[address] IMMATURE GRANS % 0.2 % Normal 0.0-2.0 [facility] Comment on above: Performed By: #### L [id number] ####Assistant Track Coach: REINIER ZHU ([phone])[facility] ([facility])[address] IMMATURE GRANS ABSOLUTE 0.0 10*3/uL Normal <0.1 [facility] Comment on above: Performed By: #### L [id number] ####Assistant Track Coach: REINIER MORINROGER ([phone])[facility] [place] ([facility])[address] Lymphocytes (Bld) [#/Vol] 1.7 10*3/uL Normal 1.0-4.3 [facility] Comment on above: Performed By: #### L [id number] ####Assistant Track Coach: REINIER MARKO ([phone])[facility] ([facility])[address] Lymphocytes/100 WBC (Bld) 38.4 % Normal 15.0-45.0 [facility] Comment on above: Performed By: #### L [id number] ####Assistant Track Coach: REINIER MORINROGER ([phone])[facility] ([facility])[address] MCH (RBC) [Entitic mass] 33.1 pg Normal 26.0-34.0 [facility] Comment on above: Performed By: #### L [id number] ####Assistant Track Coach: REINIER MORINROGER ([id number])[facility] ([facility])[address] [place] [address] MCHC 34.8 % Normal 30.5-36.0 [facility] Comment on above: Performed By: #### L [id number] ####Assistant Track Coach: REINIER MORINROGER ([id number])[facility] [place] ([facility])[address] MCV (RBC) [Entitic vol] 95.3 fL Normal 77.0-99.0 [facility] Comment on above: Performed By: #### L [id number] ####Assistant Track Coach: REINIER ZHU ([phone])[facility] ([facility])[address] Monocytes (Bld) [#/Vol] 0.6 10*3/uL Normal 0.0-0.9 [facility] Comment on above: Performed By: #### L [id number] ####Assistant Track Coach: REINIER ZHU ([id number])[facility] [place] (SBHLAB)[address] Monocytes/100 WBC (Bld) 13.9 % High 5.0-13.[address] [facility] Comment on above: Performed By: #### L [id number] ####Assistant Track Coach: REINIER ZHU ([id number])[facility] [place] ([facility])[address] NEUTROPHILS ABSOLUTE 1.9 10*3/uL Normal 1.8-7.5 [facility] Comment on above: Performed By: #### L [id number] ####Assistant Track Coach: REINIER ZHU ([phone])[facility] [place] ([facility])[address] Neutrophils/100 WBC (Bld) 43.8 % Normal 38.0-82.0 [facility] Comment on above: Performed By: #### L [id number] ####Assistant Track Coach: REINIER ZHU ([id number])[facility] [place] (SBHLAB)[address] NRBC 0.0 /100 WBCs Normal 0.0-2.0 [facility] Comment on above: Performed By: #### L [id number] ####Assistant Track Coach: REINIER ZHU ([phone])[facility] [place] ([facility])[address] Platelet mean volume (Bld) [Entitic vol] 8.8 fL Low 9.0-12.7 [facility] Comment on above: Performed By: #### L [id number] ####Assistant Track Coach: REINIER ZHU ([id number])[facility] [place] (SB[facility])[address] [place] [address] [place] Platelets (Bld) [#/Vol] 214 10*3/uL Normal 140-440 [facility] Comment on above: Performed By: #### L [id number] ####Assistant Track Coach: REINIER ZHU ([id number])[facility] (SBHLAB)[address] RBC (Bld) [#/Vol] 4.89 10*6/uL Normal 4.40-5.90 [facility] Comment on above: Performed By: #### L [id number] ####Assistant Track Coach: REINIER ZHU ([id number])[facility] (SBHLAB)[address] WBC (Bld) [#/Vol] 4.4 10*3/uL Normal 3.6-10.7 [facility] Comment on above: Performed By: #### L [id number] ####Assistant Track Coach: REINIER ZHU ([phone])[facility] (SBHLAB)[address] COMPLETE URINALYSISon 2024 BILIRUBIN, TOTAL PRESENCE IN URINE Negative Normal Negative [facility] Comment on above: Performed By: #### L [id number] ####Assistant Track Coach: REINIER ZHU ([id number])[facility] (SBHLAB)[address] [place] [address] Clarity (U) Clear Normal Clear [facility] Comment on above: Performed By: #### L [id number] ####Assistant Track Coach: REINIER ZHU ([phone])[facility] (SBHLAB)[address] [place] [address] Color (U) Light Yellow Normal Lt. Yellow [facility] Comment on above: Performed By: #### L [id number] ####Assistant Track Coach: REINIER ZHU ([id number])[facility] (SBHLAB)[address] [place] [address] GLUCOSE (MG/DL) IN URINE Normal Normal Nor mal (<70) [facility] Comment on above: Performed By: #### L [id number] ####Assistant Track Coach: REINIER MORINROGER ([phone])[facility]ENTER[facility] (SB[facility])[address] HEMOGLOBIN PRESENCE IN URINE Negative Normal Negative [facility] Comment on above: Performed By: #### L [id number] ####Assistant Track Coach: REINIER MORINROGER ([phone])[facility] (SBHLAB)[address] Ketones Ql (U) Negative Normal Negative [facility] Comment on above: Performed By: #### L [id number] ####Assistant Track Coach: REINIER ZHU ([phone])[facility] ([facility] LEUKOCYTE ESTERASE PRESENCE IN URINE BY TEST STRIP Negative Normal Negative [facility] Comment on above: Performed By: #### L [id number] ####Assistant Track Coach: REINIER ZHU ([phone])[facility] ([facility] NITRITE PRESENCE IN URINE Negative Normal Negative [facility] Comment on above: Performed By: #### L [id number] ####Assistant Track Coach: REINIER ZHU ([phone])[facility] ([facility] pH (U) 5.5 [pH] Normal 5.0-8.0 [facility] Comment on above: Performed By: #### L [id number] ####Assistant Track Coach: REINIER ZHU ([id number])[facility] (SBHLAB)[address] [place] [address] [place] Protein (U) [Mass/Vol] Negative Normal Negative [facility] Comment on above: Performed By: #### L [id number] ####Assistant Track Coach: REINIER ZHU ([id number])[facility] (SBHLAB)[address] Specific gravity (U) [Rel density] 1.010 Normal 1.005-1.030 [facility] Comment on above: Performed By: #### L [id number] ####Assistant Track Coach: REINIER ZHU ([id number])[facility] [place] (SBHLAB)[address] UROBILINOGEN (MG/DL) IN URINE Normal Normal Normal (0-1) [facility] Comment on above: Performed By: #### L [id number] ####Assistant Track Coach: REINIER ZHU ([id number])[facility]ENTER[facility] [place] (SBHLAB)[address] COMPREHENSIVE METABOLIC PANE Arnulfo 04-09-2024 Albumin [Mass/Vol] 3.9 g/dL Normal 3.5-5.0 [facility] Comment on above: Performed By: #### L AB46, LAB99, LAB17, [id number] ####Assistant Track Coach: REINIER ZHU ([id number])[facility]ENTER[facility] [place] (SBHLAB)[address] ALP [Catalytic activity/Vol] 94 U/L Normal 40-150 [facility] Comment on above: Performed By: #### L AB46, LAB99, LAB17, [id number] ####Assistant Track Coach: REINIER ZHU ([id number])[facility] [place] (SBHLAB)[address] ALT [Catalytic activity/Vol] 189 U/L High <40 [facility] Comment on above: Performed By: #### L AB46, LAB99, LAB17, [id number] ####Assistant Track Coach: REINIER ZHU ([phone])[facility] [place] (SB[facility])[address] Anion gap [Moles/Vol] 11 mmol/L Normal 3-13 [facility] Comment on above: Performed By: #### L AB46, LAB99, LAB17, [id number] ####Assistant Track Coach: REINIER ZHU ([phone])[facility] [place] (SB[facility])[address] AST [Catalytic activity/Vol] 136 U/L High <34 [facility] Comment on above: Performed By: #### L AB46, LAB99, LAB17, [id number] ####Assistant Track Coach: REINIER ZHU ([id number])[facility] (SBHLAB)[address] Bilirubin [Mass/Vol] 0.5 mg/dL Normal <1.2 [facility] Comment on above: Performed By: #### L AB46, LAB99, LAB17, [id number] ####Assistant Track Coach: REINIER ZHU ([phone])[facility] (SBHLAB)[address] Calcium [Mass/Vol] 8.9 mg/dL Normal 8.4-10.2 [facility] Comment on above: Performed By: #### L AB46, LAB99, LAB17, NHR071 ####Assistant Track Coach: REINIER ZHU ([phone])[facility] (SBHLAB)[address] Chloride [Moles/Vol] 99 mmol/L Normal 98-107 [facility] Comment on above: Performed By: #### L AB46, LAB99, LAB17, [id number] ####Assistant Track Coach: REINIER ZHU ([id number])[facility] (SBHLAB)[address] [place] [address] [place] CO2 [Moles/Vol] 25 mmol/L Normal 22-29 [facility] Comment on above: Performed By: #### L AB46, LAB99, LAB17, [id number] ####Assistant Track Coach: REINIER ZHU ([id number])[facility] (SBHLAB)[address] Creatinine [Mass/Vol] 0.65 mg/dL Low 0.72-1.25 [facility] Comment on above: Performed By: #### L AB46, LAB99, LAB17, [id number] ####Assistant Track Coach: REINIER ZHU ([id number])[facility] (SBHLAB)[address] GLOMERULAR FILTRATION RATE ML/MIN/1.73 SQ M.PREDICTED >90.0 Normal >60.0 [facility] Comment on above: Result Comment: Calc ulation based on the Chronic Kidney Disease Epidemiology Collaboration (CKD-EPI) equation refit without adjustment for race Performed By: #### L AB46, LAB99, LAB17, [id number] ####Assistant Track Coach: REINIER ZHU ([phone])[facility] (SBHLAB)[address] Glucose [Mass/Vol] 91 mg/dL Normal 74-100 [facility] Comment on above: Performed By: #### L AB46, LAB99, LAB17, [id number] ####Assistant Track Coach: REINIER ZHU ([phone])[facility] ([facility] [place] [address] Potassium [Moles/Vol] 4.4 mmol/L Normal 3.5-5.1 [facility] Comment on above: Result Comment: [facility] potassium values may be up to 0.5 mmol/L lower than serum values. Performed By: #### L AB46, LAB99, LAB17, [id number] ####Assistant Track Coach: REINIER ZHU ([phone])[facility] ([facility] Protein [Mass/Vol] 7.1 g/dL Normal 6.4-8.3 [facility] Comment on above: Performed By: #### L AB46, LAB99, LAB17, [id number] ####Assistant Track Coach: REINIER ZHU ([id number])[facility] ([facility] Sodium [Moles/Vol] 135 mmol/L Low 136-145 [facility] Comment on above: Performed By: #### L AB46, LAB99, LAB17, [id number] ####Assistant Track Coach: REINIER ZHU ([phone])[facility] ([facility])[address] Urea nitrogen [Mass/Vol] 5 mg/dL Low 9-23 [facility] Comment on above: Performed By: #### L AB46, LAB99, LAB17, [id number] ####Assistant Track Coach: REINIER ZHU ([id number])[facility] [place] (SBHLAB)[address] Comprehensive metabolic 1998 panelon 04-09-2024 Albumin [Mass/Vol] 3.9 g/dL 3.5 - 5.0 g/dL [facility] ALP [Catalytic activity/Vol] 94 U/L 40 - 150 U/L [facility] ALT [Catalytic activity/Vol] 189 U/L [facility]L [facility] Anion gap [Moles/Vol] 11 mmol/L 3 - 13 mmol/L [facility] AST [Catalytic activity/Vol] 136 U/L High [facility] - 34 U/L [facility] Bilirubin [Mass/Vol] 0.5 mg/dL NINF - 1.2 mg/dL [facility] Calcium [Mass/Vol] 8.9 mg/dL 8.4 - 10. 2 mg/dL [facility] Chloride [Moles/Vol] 99 mmol/L 98 - 10 7 mmol/L [facility] CO2 [Moles/Vol] 25 mmol/L 22 - 29 mmol/L [facility] Creatinine [Mass/Vol] 0.65 mg/dL Low 0.72 - 1.25 mg/dL [facility] GFR/1.73 sq M.predicted (S/P/Bld) [Vol rate/Area] - PINF [facility] Comment on above: Calculation based on the Chronic Kidney Disease Epidemiology Collaboration (CKD-EPI) equation refit without adjustment for race Glucose [Mass/Vol] 91 mg/dL 74 - 100 mg/dL [facility] Interpretation and review of laboratory results Abnormal [facility] Potassium [Moles/Vol] 4.4 mmol/L 3.5 - 5.1 mmol/L [facility] Comment on above: Plasma potassium juan ues may be up to 0.5 mmol/L lower than serum values. Protein [Mass/Vol] 7.1 g/dL 6.4 - 8.3 g/dL [facility] Sodium [Moles/Vol] 135 mmol/L Low 136 - 145 mmol/L [facility] Urea nitrogen [Mass/Vol] 5 mg/dL Low 9 - 23 mg/dL [facility] DRUGS OF ABUSEon 04-09-2024 AMPHETAMINE SCREEN Negative Normal [facility] Comment on above: Performed By: #### L [id number] ####Assistant Track Coach: REINIER ZHU ([phone])[facility] ([facility] BARBITURATES SCREEN Negative Normal [facility] Comment on above: Performed By: #### L [id number] ####Assistant Track Coach: REINIER ZHU ([id number])[facility] ([facility])[address] BENZODIAZEPINE SCREEN Negative Normal [facility] Comment on above: Performed By: #### L [id number] ####Assistant Track Coach: REINIER ZHU ([phone])[facility] ([facility] COCAINE METAB. SCREEN Negative Normal [facility] Comment on above: Performed By: #### L [id number] ####Assistant Track Coach: REINIER ZHU ([phone])[facility] ([facility])[address] [place] [address] FENTANYL SCREEN, UR QUAL Negative Normal [facility] Comment on [...] under separate order. Performed By: #### L [id number] ####Assistant Track Coach: REINIER ZHU ([phone])[facility] (SBHLAB)[address] METHADONE SCREEN Negative Normal [facility] Comment on above: Performed By: #### L [id number] ####Assistant Track Coach: REINIER MORINROGER ([phone])[facility] [place] (SBHLAB)[address] OPIATES SCREEN Negative Normal [facility] Comment on above: Performed By: #### L [id number] ####Assistant Track Coach: REINIER MORINROGER ([id number])[facility] (SB[facility])[address] OXYCODONE SCREEN Negative Normal [facility] Comment on above: Performed By: #### L [id number] ####Assistant Track Coach: REINIER ZHU ([id number])[facility] (SB[facility])[address] PHENCYCLIDINE SCREEN Negative Normal [facility] Comment on above: Performed By: #### L [id number] ####Assistant Track Coach: REINIER ZHU ([phone])[facility] (SBHLAB)[address] [place] [address] ECG 12-LEADon 04-09-2024 ECG 12-LEAD IMPRESSION: Sinus rhythm Borderline prolonged QT interval No significant changes from prior EKG Electronically Signed On 04-09-2024 22:41:09 EST by Kolby Whiteside Normal [facility] ED Nursing Noteon 04-09-2024 ED Nursing Note Patient seeking deto x from ETOH. 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 Normal [facility] ED Provider Noteon ED Provider Note Normal [facility] ETHANOLon 04-09-2024 ETHANOL IN SER/PLAS 334 mg/dL Critically high <10 [facility] Comment on above: Result Comment: [place] COMMENTS: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NOTE: This result is for medical treatment only. Analysis performed using non-forensic procedures. Performed By: #### L AB46, LAB99, LAB17, [id number] ####Assistant Track Coach: REINIER ZHU ([phone])[facility] ([facility] [place] [address] Ethanol (Bld) [Mass/Vol]Orde red By: Johnathan Giron on 04-09-2024 Ethanol [Mass/Vol] 334 mg/dL Critically high NINF - 10 mg/dL [facility] Interpretation and review of laboratory results Abnormal [facility] HOME HEALTH CARE CASE MANAGER depression is se en >100 mg/dL. NOTE: This result is for medical treatment only. Analysis performed using non-forensic procedures. [facility] LIPASEon 04-09-2024 Lipase [Catalytic activity/Vol] 44 U/L Normal <55 [facility] Comment on above: Performed By: #### L AB46, LAB99, LAB17, [id number] ####Assistant Track Coach: REINIER ZHU ([phone])[facility] ([facility])[address] [place] [address] Laboratory - Chemistry and C hemistry - challengeon 04-09-2024 Lipase [Catalytic activity/Vol] 44 U/L NINF - 55 U/L [facility] Magnesium [Mass/Vol] 2 mg/dL 1.6 - 2 .6 mg/dL [facility] Laboratory - Drug toxicology on 04-09-2024 Amphetamines Screen method >1000 ng/mL Ql (U) Negative [facility] Barbiturates Screen method >200 ng/mL Ql (U) Negative [facility] H ealth Benzodiazepines Ql (U) Negative [facility] Methadone Screen Ql (U) Negative [facility] Opiates Screen Ql (U) Negative [facility] oxyCODONE Ql (U) Negative [facility] He alth Phencyclidine Ql (U) Negative [facility] Laboratory - Microbiology an d Antimicrobial susceptibilityOrdered By: Jacqueline Smith on 04-09-2024 SARS-CoV-2 (COVID-19) Ag IA.rapid Ql (Resp) Negative Negative [facility] Comment on above: A negative result do es not rule out the possibility of SARS-CoV-2 infection. NAAT-based methods should be considered for symptomatic patients presenting greater than seven days after onset of symptoms. Method: Lateral flow immunoassay. Fact sheets for healthcare providers and patients can be found at the following sites: https://www.fda.gov/media/002866/download https://www.fda.gov/media/227627/download MAGNESIUMon 04-09-2024 Magnesium [Mass/Vol] 2.0 mg/dL Normal 1.6-2.6 [facility] Comment on above: Result Comment: [place] COMMENTS:Higher values can be expected in females during menses. Performed By: #### L AB46, LAB99, LAB17, [id number] ####Assistant Track Coach: REINIER ZHU ([phone])[facility] ([facility])[address] [place] [address] Magnesium [Mass/Vol]on 04-09 Higher values can be expected in females during menses. [facility] No Panel Informationon 04-09 COCAINE METAB. SCREEN Negative [facility] FENTANYL SCREEN, UR QUAL Negative [facility] The expected value f or all [...] is needed, request confirmation under separate order. [facility] Health P [place] 65 degrees [facility] Health RI Interval 162 ms [facility] QRS [place] 59 degrees [facility] QRSD Interval 96 ms [facility] Healt h QT Interval 409 ms [facility] QTC Interval 493 ms [facility] T Wave [place] 44 degrees [facility] Sinus rhythm Borderline prolonged QT interval No significant changes from prior EKG Electronically Signed On 04-09-2024 22:41:09 EST by Kolby Little, DO - 04/10/2024 IMPRESSION: Sinus rhythm Borderline prolonged QT interval No significant changes from prior EKG Electronically Signed On 04-09-2024 22:41:09 EST by Kolby Whiteside [facility] Interpretation and review of laboratory results Normal [facility] SARS-COV-2 ANTIGENon 025 SARS-COV-2 ANTIGEN Normal [facility] Comment on above: Performed By: #### L [id number] ####Assistant Track Coach: REINIER ZHU ([id number])[facility] ([facility])[address] [place] [address] SARS-CoV-2 (COVID-19) Ag [place]. rapid Ql (Resp)Ordered By: Jacqueline Smith on 04-09-2024 Interpretation and review of laboratory results Normal [facility] UNCONFIRMED DRUG SCREENon Amphetamines Ql (U) Negative Normal Negative [facility] Comment on above: Performed By: #### L [id number] ####Assistant Track Coach: CECI DUPREE ([id number])[facility] ([facility])[address] [place] [address] BARBITURATES Negative Normal Negative [facility] Comment on above: Performed By: #### L [id number] ####Assistant Track Coach: CECI DUPREE ([id number])[facility] ([facility])[address] [place] [address] Benzodiazepines Ql (U) Negative Normal Negative [facility] Comment on above: Performed By: #### L [id number] ####Assistant Track Coach: CECI DUPREE ([id number])[facility] ([facility])[address] [place] [address] [place] Cocaine Ql (U) Negative Normal Negative [facility] Comment on above: Performed By: #### L [id number] ####Assistant Track Coach: CECI DUPREE ([id number])[facility] ([facility])[address] [place] [address] [place] Methadone Ql (U) Negative Normal Negative [facility] Comment on above: Performed By: #### L [id number] ####Assistant Track Coach: CECI DUPREE ([id number])[facility] ([facility])[address] [place] [address] Opiates Ql (U) Negative Normal Negative [facility] Comment on above: Performed By: #### L [id number] ####Assistant Track Coach: CECI DUPREE ([id number])[facility] ([facility])[address] [place] [address] OXYCODONE/OXYMORPHONE Negative Normal Negative [facility] Comment on above: Performed By: #### L [id number] ####Assistant Track Coach: CECI DUPREE ([id number])[facility] ([facility])[address] [place] [address] PCP Negative Normal Negative [facility] Comment on above: Result Comment: [place] COMMENTS:The expected value for the drugs listed [...] using non-forensic procedures. Performed By: #### L [id number] ####Assistant Track Coach: CECI DUPREE ([id number])[facility] ([facility])[address] [place] [address] Urinalysis complete panel (U )on 04-09-2024 Bilirubin Ql (U) Negative Negative mg/dL [facility] Clarity (U) Clear Clear [facility] Color (U) Light Yellow Lt. Yellow [facility] Glucose Ql (U) Normal Normal (<70) mg/dL [facility] Hemoglobin Ql (U) Negative Negative mg/dL [facility] Interpretation and review of laboratory results Normal [facility] Ketones (U) [Mass/Vol] Negative Negat shiv mg/dL [facility] Leukocyte esterase Test strip Ql (U) Negative Negative Estefani/uL [facility] Nitrite Ql (U) Negative Negative [facility] th pH (U) 5.5 [pH] 5.0 - 8.0 pH [facility] Protein (U) [Mass/Vol] Negative Negat shiv mg/dL [facility] Specific gravity (U) [Rel density] 1.01 1.005 - 1.030 [facility] Urobilinogen (U) [Mass/Vol] Normal Normal (0-1) mg/dL [facility] Vital signson 04-09-2024 Heart rate 87 /min bpm [facility] 37on 02-28-2024 37 Normal [facility] Progress Noteon 02-28-2024 Progress Note Normal [facility] Progress Noteon 02-18-2024 Progress Note Normal [facility] 36on 02-14-2024 36 I was able to speak with patient, I notified him of the results, and provided him with the number to the clinic so he can call to set up an appointment. I also sent information to his [facility] for there referral for him as well to has access to that way. Normal [facility] 36on 02-13-2024 36 Normal [facility] 36 Normal [facility] 36 error Normal [facility] CT LUNG SCREENING LOW DOSEon 02-13-2024 CT LUNG SCREENING LOW DOSE Normal [facility] 36on 02-06-2024 36 Seen yesterday No future appt Normal [facility] 36 06/26/23 last filled Seen yesterday. No future appt set up Normal [facility] Progress Noteon 02-05-2024 Progress Note Normal [facility] Progress Noteon 01-28-2024 Progress Note Normal [facility] 30on 01-24-2024 30 Normal [facility] [id number] 01-24-2024 [id number] Normal [facility] Nursing Noteon 01-24-2024 Nursing Note Normal [facility] Nursing Note Patient up, social with peers with appropriate behavior. Patient takes medication with ease. Patient encouraged to make needs known. Normal [facility] 30on 01-23-2024 30 Normal [facility] Nursing Noteon 01-23-2024 Nursing Note Normal [facility] Nursing Note Patient is up and steady, seen in group room socializing. Pt is cooperative and med compliant. Pt denies SI/HI/AVH. Pt encouraged to notify staff for any questions and concerns. Normal [facility] Progress Noteon 01-23-2024 Progress Note Normal [facility] [id number] 01-22-2024 [id number] Normal [facility] 94on 01-22-2024 94 Normal [facility] COMPREHENSIVE METABOLIC PANE Arnulfo 01-22-2024 Albumin [Mass/Vol] 3.9 g/dL Normal 3.5-5.0 [facility] Comment on above: Performed By: #### L [id number] ####Assistant Track Coach: CECI DUPREE ([id number])[address] ALP [Catalytic activity/Vol] 77 U/L Normal 38-126 [facility] Comment on above: Performed By: #### L [id number] ####Assistant Track Coach: CECI DUPREE ([id number])[address] ALT [Catalytic activity/Vol] 75 U/L High 0-49 [facility] Comment on above: Performed By: #### L [id number] ####Assistant Track Coach: CECI DUPREE ([id number])[address] Anion gap [Moles/Vol] 5 mmol/L Normal 3-13 [facility] Comment on above: Performed By: #### L [id number] ####Assistant Track Coach: CECI DUPREE ([id number])[address] AST [Catalytic activity/Vol] 58 U/L High 15-46 [facility] Comment on above: Performed By: #### L [id number] ####Assistant Track Coach: CECI [id number])[facility])[address] [place] [address] Bilirubin [Mass/Vol] 0.7 mg/dL Normal 0.2-1.3 [facility] Comment on above: Performed By: #### L [id number] ####Assistant Track Coach: CECI DUPREE ([id number])[facility] ([facility] [place] [address] Calcium [Mass/Vol] 8.9 mg/dL Normal 8.4-10.4 [facility] Comment on above: Performed By: #### L [id number] ####Assistant Track Coach: CECI DUPREE ([phone])[facility] ([facility] [place] [address] Chloride [Moles/Vol] 96 mmol/L Low 98-107 [facility] Comment on above: Performed By: #### L [id number] ####Assistant Track Coach: CECI DUPREE ([id number])[facility] ([facility])[address] [place] [address] CO2 [Moles/Vol] 29 mmol/L Normal 22-30 [facility] Comment on above: Performed By: #### L [id number] ####Assistant Track Coach: CECI DUPREE ([id number])[facility] ([facility])[address] [place] [address] Creatinine [Mass/Vol] 0.61 mg/dL Low 0.66-1.25 [facility] Comment on above: Performed By: #### L [id number] ####Assistant Track Coach: CECI DUPREE ([id number])[facility] ([facility])[address] [place] [address] GLOMERULAR FILTRATION RATE ML/MIN/1.73 SQ M.PREDICTED >90.0 Normal >60.0 [facility] Comment on above: Result Comment: Calc ulation based on the Chronic Kidney Disease Epidemiology Collaboration (CKD-EPI) equation refit without adjustment for race Performed By: #### L [id number] ####Assistant Track Coach: CECI DUPREE ([id number])[facility] ([facility])[address] [place] [address] Glucose [Mass/Vol] 98 mg/dL Normal 70-100 [facility] Comment on above: Performed By: #### L [id number] ####Assistant Track Coach: CECI DUPREE ([id number])[facility] ([facility])[address] [place] [address] Potassium [Moles/Vol] 4.0 mmol/L Normal 3.5-5.1 [facility] Comment on above: Performed By: #### L [id number] ####Assistant Track Coach: CECI DUPREE ([phone])[facility] ([facility])[address] [place] [address] Protein [Mass/Vol] 6.6 g/dL Normal 6.3-8.2 [facility] Comment on above: Performed By: #### L [id number] ####Assistant Track Coach: CECI DUPREE ([phone])[facility] ([facility])[address] [place] [address] Sodium [Moles/Vol] 130 mmol/L Low 135-145 [facility] Comment on above: Performed By: #### L [id number] ####Assistant Track Coach: CECI DPUREE ([id number])[facility] ([facility])[address] [place] [address] Urea nitrogen [Mass/Vol] 7 mg/dL Low 9-20 [facility] Comment on above: Performed By: #### L [id number] ####Assistant Track Coach: CCEI DUPREE ([phone])[facility])[address] [place] [address] Comprehensive metabolic 1998 panelon 01-22-2024 Albumin [Mass/Vol] 3.9 g/dL 3.5 - 5.0 g/dL [facility] ALP [Catalytic activity/Vol] 77 U/L 38 - 126 U/L [facility] ALT [Catalytic activity/Vol] 75 U/L High 0 - 49 U/L [facility] Anion gap [Moles/Vol] 5 mmol/L 3 - 13 mmol/L [facility] AST [Catalytic activity/Vol] 58 U/L High 15 - 46 U/L [facility] Bilirubin [Mass/Vol] 0.7 mg/dL 0.2 - 1 .3 mg/dL [facility] Calcium [Mass/Vol] 8.9 mg/dL 8.4 - 10. 4 mg/dL [facility] Chloride [Moles/Vol] 96 mmol/L Low 98 - 10 7 mmol/L [facility] CO2 [Moles/Vol] 29 mmol/L 22 - 30 mmol/L [facility] Creatinine [Mass/Vol] 0.61 mg/dL Low 0.66 - 1.25 mg/dL [facility] GFR/1.73 sq M.predicted (S/P/Bld) [Vol rate/Area] - PINF [facility] Comment on above: Calculation based on the Chronic Kidney Disease Epidemiology Collaboration (CKD-EPI) equation refit without adjustment for race Glucose [Mass/Vol] 98 mg/dL 70 - 100 mg/dL [facility] Interpretation and review of laboratory results Abnormal [facility] Potassium [Moles/Vol] 4 mmol/L 3.5 - 5.1 mmol/L [facility] Protein [Mass/Vol] 6.6 g/dL 6.3 - 8.2 g/dL [facility] Sodium [Moles/Vol] 130 mmol/L Low 135 - 145 mmol/L [facility] Urea nitrogen [Mass/Vol] 7 mg/dL Low 9 - 20 mg/dL [facility] Nursing Noteon 01-22-2024 Nursing Note Normal [facility] Progress Noteon 01-22-2024 Progress Note Nutrition rescreen completed. Chart reviewed. 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 Lamar Smith, DT Normal [facility] Progress Note Normal [facility] 30on 01-21-2024 30 The patient is Moderately Stable - Low risk of patient condition declining or worsening The patient's goals for the shift include rest The clinical goals for the shift include comfort/safety [facility] [id number] 01-21-2024 [id number] [facility] Nursing Noteon 01-21-2024 Nursing Note Patient is up and steady, seen in group room. Pt is cooperative and med compliant. Pt is encouraged to notify staff for any questions and concerns. Normal [facility] Nursing Note Patient received PRN albuterol inhaler as per orders at 1112 for . Normal [facility] Nursing Note Patient received PRN respiratory TX from RT at 0915 with good results. 02 93 percent with no O2 Normal [facility] CBC W Auto Differential pane l (Bld)Ordered By: Jyotsna Peralta on 01-20-2024 Basophils (Bld) [#/Vol] 0 10*3/uL 0.0 - 0.2 10*3/uL [facility] Basophils/100 WBC (Bld) 0.5 % 0.0 - 2.0 % [facility] Eosinophils (Bld) [#/Vol] 0 10*3/uL 0.0 - 0.5 10*3/uL [facility] Eosinophils/100 WBC (Bld) 1 % 0.0 - 6.0 % [facility] Erythrocyte distribution width (RBC) [Ratio] 14.1 % 11.5 - 15.0 % [facility] Hematocrit (Bld) [Volume fraction] 46 % 40.0 - 52.0 % [facility] Hemoglobin (Bld) [Mass/Vol] 16.1 g/dL 13.0 - 18.0 g/dL [facility] Immature granulocytes (Bld) [#/Vol] 0 10*3/uL NINF - 0.1 10*3/uL [facility] Immature granulocytes/100 WBC (Bld) 0.5 % 0.0 - 2.0 % [facility] Interpretation and review of laboratory results Abnormal [facility] Lymphocytes (Bld) [#/Vol] 1.3 10*3/uL 1.0 - 4.3 10*3/uL [facility] Lymphocytes/100 WBC (Bld) 30.6 % 15.0 - 45.0 % [facility] MCH (RBC) [Entitic mass] 33 pg 26. 0 - 34.0 pg [facility] MCHC (RBC) [Mass/Vol] 35 % 30.5 - 36.0 % [facility] MCV (RBC) [Entitic vol] 94.3 fL 77.0 - 99.0 fL [facility] Monocytes (Bld) [#/Vol] 0.6 10*3/uL 0.0 - 0.9 10*3/uL [facility] Monocytes/100 WBC (Bld) 14.2 % High 5.0 - 13.0 % [facility] Neutrophils (Bld) [#/Vol] 2.2 10*3/uL 1.8 - 7.5 10*3/uL [facility] Neutrophils/100 WBC (Bld) 53.2 % 38.0 - 82.0 % [facility] Nucleated RBC/100 WBC (Bld) [Ratio] 0 % [facility] Platelet mean volume (Bld) [Entitic vol] 8.8 fL Low 9.0 - 12.7 fL [facility] Platelets (Bld) [#/Vol] 156 10*3/uL 140 - 440 10*3/uL [facility] RBC (Bld) [#/Vol] 4.88 10*6/uL 4.40 - 5.9 0 10*6/uL [facility] WBC (Bld) [#/Vol] 4.2 10*3/uL 3.6 - 10.7 10*3/uL [facility] CBC WITH AUTO DIFFERENTIALon 01-20-2024 Basophils (Bld) [#/Vol] 0.0 10*3/uL Normal 0.0-0.2 [facility] Comment on above: Performed By: #### L [id number] ####Assistant Track Coach: REINIER ZHU ([id number])[facility] ([facility])[address] Basophils/100 WBC (Bld) 0.5 % Normal 0.0-2.0 [facility] Comment on above: Performed By: #### L [id number] ####Assistant Track Coach: REINIER ZHU ([id number])[facility] ([facility])[address] [place] [address] [place] Eosinophils (Bld) [#/Vol] 0.0 10*3/uL Normal 0.0-0.5 [facility] Comment on above: Performed By: #### L [id number] ####Assistant Track Coach: REINIER ZHU ([id number])[facility] ([facility])[address] [place] [address] [place] Eosinophils/100 WBC (Bld) 1.0 % Normal 0.0-6.0 [facility] Comment on above: Performed By: #### L [id number] ####Assistant Track Coach: REINIER ZHU ([id number])[facility] ([facility])[address] Erythrocyte distribution width (RBC) [Ratio] 14.1 % Normal 11.5-15.0 [facility] Comment on above: Performed By: #### L [id number] ####Assistant Track Coach: REINIER ZHU ([id number])[facility] ([facility] Hematocrit (Bld) [Volume fraction] 46.0 % Normal 40.0-52.0 [facility] Comment on above: Performed By: #### L [id number] ####Assistant Track Coach: REINIER ZHU ([id number])[facility] ([facility])[address] [place] [address] Hemoglobin (Bld) [Mass/Vol] 16.1 g/dL Normal 13.0-18.0 [facility] Comment on above: Performed By: #### L [id number] ####Assistant Track Coach: REINIER ZHU ([id number])[facility] ([facility] [place] [address] IMMATURE GRANS % 0.5 % Normal 0.0-2.0 [facility] Comment on above: Performed By: #### L [id number] ####Assistant Track Coach: REINIER ZHU ([id number])[facility] ([facility] IMMATURE GRANS ABSOLUTE 0.0 10*3/uL Normal <0.1 [facility] Comment on above: Performed By: #### L [id number] ####Assistant Track Coach: REINIER ZHU ([id number])[facility] ([facility] Lymphocytes (Bld) [#/Vol] 1.3 10*3/uL Normal 1.0-4.3 [facility] Comment on above: Performed By: #### L [id number] ####Assistant Track Coach: REINIER ZHU ([id number])[facility] ([facility])[address] Lymphocytes/100 WBC (Bld) 30.6 % Normal 15.0-45.0 [facility] Comment on above: Performed By: #### L [id number] ####Assistant Track Coach: REINIER ZHU ([id number])[facility] ([facility])[address] MCH (RBC) [Entitic mass] 33.0 pg Normal 26.0-34.0 [facility] Comment on above: Performed By: #### L [id number] ####Assistant Track Coach: REINIER ZHU ([id number])[facility] ([facility])[address] [place] [address] MCHC 35.0 % Normal 30.5-36.0 [facility] Comment on above: Performed By: #### L [id number] ####Assistant Track Coach: REINIER ZHU ([id number])[facility] [place] ([facility])[address] [place] [address] MCV (RBC) [Entitic vol] 94.3 fL Normal 77.0-99.0 [facility] Comment on above: Performed By: #### L [id number] ####Assistant Track Coach: REINIER ZHU ([id number])[facility] ([facility])[address] [place] [address] Monocytes (Bld) [#/Vol] 0.6 10*3/uL Normal 0.0-0.9 [facility] Comment on above: Performed By: #### L [id number] ####Assistant Track Coach: REINIER ZHU ([id number])[facility] ([facility])[address] Monocytes/100 WBC (Bld) 14.2 % High 5.0-13.0 [facility] Comment on above: Performed By: #### L [id number] ####Assistant Track Coach: REINIER ZHU ([id number])[facility] ([facility])[address] NEUTROPHILS ABSOLUTE 2.2 10*3/uL Normal 1.8-7.5 [facility] Comment on above: Performed By: #### L [id number] ####Assistant Track Coach: REINIER ZHU ([id number])[facility] [place] ([facility])[address] Neutrophils/100 WBC (Bld) 53.2 % Normal 38.0-82.0 [facility] Comment on above: Performed By: #### L [id number] ####Assistant Track Coach: REINIER ZHU ([id number])[facility] [place] ([facility])[address] NRBC 0.0 /100 WBCs Normal 0.0-2.0 [facility] Comment on above: Performed By: #### L [id number] ####Assistant Track Coach: REINIER ZHU ([id number])[facility] [place] ([facility])[address] Platelet mean volume (Bld) [Entitic vol] 8.8 fL Low 9.0-12.7 [facility] Comment on above: Performed By: #### L [id number] ####Assistant Track Coach: REINIER ZHU ([id number])[facility] [place] ([facility])[address] [place] [address] [place] Platelets (Bld) [#/Vol] 156 10*3/uL Normal 140-440 [facility] Comment on above: Performed By: #### L [id number] ####Assistant Track Coach: REINIER ZHU ([id number])[facility] [place] (SB[facility])[address] [place] [address] [place] RBC (Bld) [#/Vol] 4.88 10*6/uL Normal 4.40-5.90 [facility] Comment on above: Performed By: #### L [id number] ####Assistant Track Coach: REINIER ZHU ([id number])[facility] [place] ([facility])[address] WBC (Bld) [#/Vol] 4.2 10*3/uL Normal 3.6-10.7 [facility] Comment on above: Performed By: #### L [id number] ####Assistant Track Coach: REINIER ZHU ([id number])[facility]ENTERA [facility] (SBHLAB)[address] COMPREHENSIVE METABOLIC PANE Arnulfo 01-20-2024 Albumin [Mass/Vol] 4.3 g/dL Normal 3.5-5.0 [facility] Comment on above: Performed By: #### L [id number], LAB46 ####Assistant Track Coach: REINIER ZHU ([id number])[facility] [place] ([facility])[address] ALP [Catalytic activity/Vol] 100 U/L Normal 38-126 [facility] Comment on above: Performed By: #### L AB17, LAB46 ####Assistant Track Coach: REINIER ZHU ([id number])[facility]ITAL[facility] (SBHLAB)[address] ALT [Catalytic activity/Vol] 106 U/L High 0-49 [facility] Comment on above: Performed By: #### L AB17, LAB46 ####Assistant Track Coach: REINIER ZHU ([id number])[facility] ([facility])[address] Anion gap [Moles/Vol] 15 mmol/L High 3-13 [facility] Comment on above: Performed By: #### L AB17, LAB46 ####Assistant Track Coach: REINIER ZHU ([id number])[facility]A [facility]BSIERRA [facility]OSPITALN (SBHLAB)[address] AST [Catalytic activity/Vol] 102 U/L High 15-46 [facility] Comment on above: Performed By: #### L AB17, LAB46 ####Assistant Track Coach: REINIER ZHU ([id number])[facility] [place] (SBHLAB)[address] Bilirubin [Mass/Vol] 0.5 mg/dL Normal 0.2-1.3 [facility] Comment on above: Performed By: #### L AB17, LAB46 ####Assistant Track Coach: REINIER ZHU ([id number])[facility] [place] (SB[facility])[address] Calcium [Mass/Vol] 8.2 mg/dL Low 8.4-10.4 [facility] Comment on above: Performed By: #### L AB17, LAB46 ####Assistant Track Coach: REINIER ZHU ([phone])[facility] [place] (SB[facility])[address] Chloride [Moles/Vol] 93 mmol/L Low 98-107 [facility] Comment on above: Performed By: #### L AB17, LAB46 ####Assistant Track Coach: REINIER ZHU ([id number])[facility] [place] (SB[facility])[address] CO2 [Moles/Vol] 26 mmol/L Normal 22-30 [facility] Comment on above: Performed By: #### L AB17, LAB46 ####Assistant Track Coach: REINIER ZHU ([id number])[facility] [place] (SB[facility])[address] Creatinine [Mass/Vol] 0.59 mg/dL Low 0.66-1.25 [facility] Comment on above: Performed By: #### L AB17, LAB46 ####Assistant Track Coach: REINIER ZHU ([id number])[facility] [place] (SB[facility])[address] GLOMERULAR FILTRATION RATE ML/MIN/1.73 SQ M.PREDICTED >90.0 Normal >60.0 [facility] Comment on above: Result Comment: Calc ulation based on the Chronic Kidney Disease Epidemiology Collaboration (CKD-EPI) equation refit without adjustment for race Performed By: #### L AB17, LAB46 ####Assistant Track Coach: REINIER ZHU ([phone])[facility] [place] (SBHLAB)[address] Glucose [Mass/Vol] 174 mg/dL High 70-100 [facility] Comment on above: Performed By: #### L AB17, LAB46 ####Assistant Track Coach: REINIER ZHU ([id number])[facility] [place] (SBHLAB)[address] Potassium [Moles/Vol] 4.1 mmol/L Normal 3.5-5.1 [facility] Comment on above: Performed By: #### L AB17, LAB46 ####Assistant Track Coach: REINIER ZHU ([id number])[facility] [place] (SBHLAB)[address] Protein [Mass/Vol] 7.3 g/dL Normal 6.3-8.2 [facility] Comment on above: Performed By: #### L AB17, LAB46 ####Assistant Track Coach: REINIER ZHU ([id number])[facility] (SB[facility])[address] [place] [address] [place] Sodium [Moles/Vol] 134 mmol/L Low 135-145 [facility] Comment on above: Performed By: #### L AB17, LAB46 ####Assistant Track Coach: REINIER ZHU ([id number])[facility] (SB[facility])[address] Urea nitrogen [Mass/Vol] 7 mg/dL Low 9-20 [facility] Comment on above: Performed By: #### L AB17, LAB46 ####Assistant Track Coach: REINIER ZHU ([id number])[facility] (SB[facility])[address] Comprehensive metabolic 1998 panelon 01-20-2024 Albumin [Mass/Vol] 4.3 g/dL 3.5 - 5.0 g/dL [facility] ALP [Catalytic activity/Vol] 100 U/L 38 - 126 U/L [facility] ALT [Catalytic activity/Vol] 106 U/L High 0 - 49 U/L [facility] Anion gap [Moles/Vol] 15 mmol/L High 3 - 13 mmol/L [facility] AST [Catalytic activity/Vol] 102 U/L High 15 - 46 U/L [facility] Bilirubin [Mass/Vol] 0.5 mg/dL 0.2 - 1 .3 mg/dL [facility] Calcium [Mass/Vol] 8.2 mg/dL Low 8.4 - 10. 4 mg/dL [facility] Chloride [Moles/Vol] 93 mmol/L Low 98 - 10 7 mmol/L [facility] CO2 [Moles/Vol] 26 mmol/L 22 - 30 mmol/L [facility] Creatinine [Mass/Vol] 0.59 mg/dL Low 0.66 - 1.25 mg/dL [facility] GFR/1.73 sq M.predicted (S/P/Bld) [Vol rate/Area] - PINF [facility] Comment on above: Calculation based on the Chronic Kidney Disease Epidemiology Collaboration (CKD-EPI) equation refit without adjustment for race Glucose [Mass/Vol] 174 mg/dL High 70 - 100 mg/dL [facility] Interpretation and review of laboratory results Abnormal [facility] Potassium [Moles/Vol] 4.1 mmol/L 3.5 - 5.1 mmol/L [facility] Protein [Mass/Vol] 7.3 g/dL 6.3 - 8.2 g/dL [facility] Sodium [Moles/Vol] 134 mmol/L Low 135 - 145 mmol/L [facility] Urea nitrogen [Mass/Vol] 7 mg/dL Low 9 - 20 mg/dL [facility] DRUGS OF ABUSEon 01-20-2024 AMPHETAMINE SCREEN Negative Normal [facility] Comment on above: Performed By: #### L [id number] ####Assistant Track Coach: REINIER ZHU ([id number])[facility] (SB[facility])[address] [place] [address] BARBITURATES SCREEN Negative Normal [facility] Comment on above: Performed By: #### L [id number] ####Assistant Track Coach: REINIER ZHU ([id number])[facility] [place] (SBHLAB)[address] BENZODIAZEPINE SCREEN Negative Normal [facility] Comment on above: Performed By: #### L [id number] ####Assistant Track Coach: REINIER ZHU ([id number])[facility] [place] (SBHLAB)[address] COCAINE METAB. SCREEN Negative Normal [facility] Comment on above: Performed By: #### L [id number] ####Assistant Track Coach: REINIER ZHU ([id number])[facility] [place] ([facility])[address] METHADONE SCREEN Negative Normal [facility] Comment on above: Performed By: #### L [id number] ####Assistant Track Coach: REINIER ZHU ([id number])[facility] [place] (SBHLAB)[address] OPIATES SCREEN Negative Normal [facility] Comment on above: Performed By: #### L [id number] ####Assistant Track Coach: REINIER ZHU ([id number])[facility] [place] (SBHLAB)[address] OXYCODONE SCREEN Negative Normal [facility] Comment on above: Performed By: #### L [id number] ####Assistant Track Coach: REINIER ZHU ([id number])[facility] [place] (SB[facility])[address] PHENCYCLIDINE SCREEN Negative Normal [facility] Comment on above: Result [...] under separate order. Performed By: #### L [id number] ####Assistant Track Coach: REINIER ZHU ([id number])[facility] ([facility])[address] [place] [address] ECG 12-LEADon 01-20-2024 ECG 12-LEAD IMPRESSION: Sinus rhythm Consider anterior infarct Electronically Signed On 01-20-2024 19:55:10 EDT by Triston Abraham [facility] ED Nursing Noteon 01-20-2024 ED Nursing Note Called in report to TISH Acevedo at [facility]. Jacqueline Richardson RN 01/20/242202 Normal [facility] ED Nursing Note Pt presents seeking alcohol detox. Last drink was right before leaving house. Drinks about 6-8 beers/day. Has been through detox in past. Has never had withdrawal seizures. Currently having anxiety, vomiting, palpitations Normal [facility] ED Provider Noteon ED Provider Note Normal [facility] ETHANOLon 01-20-2024 ETHANOL IN SER/PLAS 0.435 g/dL Critically high 0.000-0.010 [facility] Comment on above: Result Comment: [place] COMMENTS:NOTE: This result is for medical treatment only. Analysis performed using non-forensic procedures. Performed By: #### L AB17, LAB46 ####Assistant Track Coach: REINIER ZHU ([phone])[facility] ([facility])[address] [place] [address] Ethanol (Bld) [Mass/Vol]Orde red By: Shellie Morel on 01-20-2024 Ethanol [Mass/Vol] 0.435 g/dL Critically high 0.000 - 0.010 g/dL [facility] Interpretation and review of laboratory results Abnormal [facility] Laboratory - Drug toxicology Ordered By: Nanette Elias on 01-20-2024 Amphetamines Screen method >1000 ng/mL Ql (U) Negative [facility] Barbiturates Screen method >200 ng/mL Ql (U) Negative [facility] Benzodiazepines Ql (U) Negative [facility] Methadone Screen Ql (U) Negative [facility] Opiates Screen Ql (U) Negative [facility] oxyCODONE Ql (U) Negative [facility] Phencyclidine Ql (U) Negative [facility] Laboratory - Microbiology an d Antimicrobial susceptibilityon 01-20-2024 SARS-CoV-2 (COVID-19) Ag IA.rapid Ql (Resp) Negative Negative [facility] Comment on above: A negative result do es not rule out the possibility of SARS-CoV-2 infection. NAAT-based methods should be considered for symptomatic patients presenting greater than seven days after onset of symptoms. Method: Lateral flow immunoassay. Fact sheets for healthcare providers and patients can be found at the following sites: https://www.[employer].gov/media/249356/download https://www.[employer].gov/media/358994/download No Panel Informationon 01-19 P [place] 50 degrees [facility] RI Interval 166 ms [facility] QRS [place] 55 degrees [facility] QRSD Interval 97 ms [facility] QT Interval 367 ms [facility] QTC Interval 460 ms [facility] T Wave [place] 51 degrees [facility] Sinus rhythm Consider anterior infarct Electronically Signed On 01-20-2024 19:55:10 EDT by Triston Abraham CV Triston Lehman MD - 01/20/2024 IMPRESSION: Sinus rhythm Consider anterior infarct Electronically Signed On 01-20-2024 19:55:10 EDT by Triston Abraham [facility] No Panel InformationOrdered By: Nanette Elias on 01-20-2024 COCAINE METAB. SCREEN Negative [facility] The expected value f or all of [...] is needed, request confirmation under separate order. [facility] Nursing Noteon 01-20-2024 Nursing Note Normal [facility] SARS-COV-2 ANTIGENon 024 SARS-COV-2 ANTIGEN Normal [facility] Comment on above: Performed By: #### L [id number] ####Assistant Track Coach: REINIER ZHU ([phone])[facility] (SBHLAB)[address] [place] [address] SARS-CoV-2 (COVID-19) Ag IA. rapid Ql (Resp)on 01-20-2024 Interpretation and review of laboratory results Normal [facility] Vital signson 01-20-2024 Heart rate 95 /[facility] bpm [facility] [place] Pt did not show for IOP assessment on this date. [facility] 36on 12-04-2023 36 For CAROL Normal [facility] 36 Normal [facility] 36 Normal [facility] 36on 12-03-2023 36 Normal [facility] IDNon 11-30-2023 IDN Normal [facility] IDN The patient is Moderately Stable - Low risk of patient condition declining or worsening The patient's goals for the shift include Safety The clinical goals for the shift include Safety Normal [facility] Nursing Noteon 11-30-2023 Nursing Note Normal [facility] CARECOORDon 11-29-2023 CARECOORD S/W, IOP IOP counselor did come up to see patient to discuss treatment program. Patient was scheduled for an appointment for 12/10 at 10A. Normal [facility] CARECOORD Normal [facility] CARECOORD Normal [facility] IDNon 11-29-2023 IDN The patient is Moderately Stable - Low risk of patient condition declining or worsening The patient's goals for the shift include Safety and to feel better. The clinical goals for the shift include safety Normal [facility] Progress Noteon 11-29-2023 Progress Note Normal [facility] Progress Note Nutrition rescreen completed. Chart reviewed. 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 Normal [facility] Progress Note Normal [facility] BASIC METABOLIC PANELon 10-31 Anion gap [Moles/Vol] 9 mmol/L Normal 3-13 [facility] Comment on above: Performed By: #### L [id number] ####Assistant Track Coach: REINIER ZHU ([id number])[facility] [place] (SB[facility])[address] Calcium [Mass/Vol] 8.4 mg/dL Normal 8.4-10.4 [facility] Comment on above: Performed By: #### L [id number] ####Assistant Track Coach: REINIER ZHU ([id number])[facility] [place] (SB[facility])[address] Chloride [Moles/Vol] 99 mmol/L Normal 98-107 [facility] Comment on above: Performed By: #### L [id number] ####Assistant Track Coach: REINIER ZHU ([id number])[facility] [place] ([facility])[address] CO2 [Moles/Vol] 27 mmol/L Normal 22-30 [facility] Comment on above: Performed By: #### L AB15 ####Assistant Track Coach: REINIER ZHU ([phone])[facility] [place] ([facility])[address] Creatinine [Mass/Vol] 0.62 mg/dL Low 0.66-1.25 [facility] Comment on above: Performed By: #### L AB15 ####Assistant Track Coach: REINIER ZHU ([id number])[facility] [place] (SBHLAB)[address] GLOMERULAR FILTRATION RATE ML/MIN/1.73 SQ M.PREDICTED >90.0 Normal >60.0 [facility] Comment on above: Result Comment: Calc ulation based on the Chronic Kidney Disease Epidemiology Collaboration (CKD-EPI) equation refit without adjustment for race Performed By: #### L AB15 ####Assistant Track Coach: REINIER ZHU ([id number])[facility]ENTER[facility] (SBHLAB)[address] Glucose [Mass/Vol] 108 mg/dL High 70-100 [facility] Comment on above: Performed By: #### L [id number] ####Assistant Track Coach: REINIER ZHU ([id number])[facility] [place] (SBHLAB)[address] Potassium [Moles/Vol] 4.0 mmol/L Normal 3.5-5.1 [facility] Comment on above: Performed By: #### L AB15 ####Assistant Track Coach: REINIER ZHU ([id number])[facility] ([facility] Sodium [Moles/Vol] 135 mmol/L Normal 135-145 [facility] Comment on above: Performed By: #### L [id number] ####Assistant Track Coach: REINIER ZHU ([id number])[facility] ([facility] Urea nitrogen [Mass/Vol] 7 mg/dL Low 9-20 [facility] Comment on above: Performed By: #### L [id number] ####Assistant Track Coach: REINIER ZHU ([id number])[facility] (HLAB)[address] [place] [address] Basic metabolic 1998 panelon 11-28-2023 Anion gap [Moles/Vol] 9 mmol/L 3 - 13 mmol/L [facility] Calcium [Mass/Vol] 8.4 mg/dL 8.4 - 10. 4 mg/dL [facility] Chloride [Moles/Vol] 99 mmol/L 98 - 10 7 mmol/L [facility] CO2 [Moles/Vol] 27 mmol/L 22 - 30 mmol/L [facility] Creatinine [Mass/Vol] 0.62 mg/dL Low 0.66 - 1.25 mg/dL [facility] GFR/1.73 sq M.predicted (S/P/Bld) [Vol rate/Area] - PINF [facility] Comment on above: Calculation based on the Chronic Kidney Disease Epidemiology Collaboration (CKD-EPI) equation refit without adjustment for race Glucose [Mass/Vol] 108 mg/dL High 70 - 100 mg/dL [facility] Interpretation and review of laboratory results Abnormal [facility] Potassium [Moles/Vol] 4.0 mmol/L 3.5 - 5.1 mmol/L [facility] Sodium [Moles/Vol] 135 mmol/L 135 - 145 mmol/L [facility] Urea nitrogen [Mass/Vol] 7 mg/dL Low 9 - 20 mg/dL [facility] CBC W Auto Differential pane l (Bld)on 11-28-2023 Basophils (Bld) [#/Vol] 0.0 10*3/uL 0.0 - 0.2 10*3/uL [facility] Basophils/100 WBC (Bld) 0.4 % 0.0 - 2.0 % [facility] Eosinophils (Bld) [#/Vol] 0.1 10*3/uL 0.0 - 0.5 10*3/uL [facility] Eosinophils/100 WBC (Bld) 1.4 % 0.0 - 6.0 % [facility] Erythrocyte distribution width (RBC) [Ratio] 14.4 % 11.5 - 15.0 % [facility] Hematocrit (Bld) [Volume fraction] 40.9 % 40.0 - 52.0 % [facility] Hemoglobin (Bld) [Mass/Vol] 13.7 g/dL 13.0 - 18.0 g/dL [facility] Immature granulocytes (Bld) [#/Vol] 0.0 10*3/uL NINF - 0.1 10*3/uL [facility] [employer] [place] Immature granulocytes/100 WBC (Bld) 0.2 % 0.0 - 2.0 % [facility] Interpretation and review of laboratory results Abnormal [facility] Lymphocytes (Bld) [#/Vol] 1.4 10*3/uL 1.0 - 4.3 10*3/uL [facility] Lymphocytes/100 WBC (Bld) 28.5 % 15.0 - 45.0 % [facility] MCH (RBC) [Entitic mass] 31.6 pg 26. 0 - 34.0 pg [facility] MCHC (RBC) [Mass/Vol] 33.5 % 30.5 - 36.0 % [facility] MCV (RBC) [Entitic vol] 94.2 fL 77.0 - 99.0 fL [facility] Monocytes (Bld) [#/Vol] 0.7 10*3/uL 0.0 - 0.9 10*3/uL [facility] Monocytes/100 WBC (Bld) 14.3 % High 5.0 - 13.0 % [facility] Neutrophils (Bld) [#/Vol] 2.7 10*3/uL 1.8 - 7.5 10*3/uL [facility] Neutrophils/100 WBC (Bld) 55.2 % 38.0 - 82.0 % [facility] Nucleated RBC/100 WBC (Bld) [Ratio] 0.0 % [facility] Platelet mean volume (Bld) [Entitic vol] 8.5 fL Low 9.0 - 12.7 fL [facility] Platelets (Bld) [#/Vol] 210 10*3/uL 140 - 440 10*3/uL [facility] RBC (Bld) [#/Vol] 4.34 10*6/uL Low 4.40 - 5.9 0 10*6/uL [facility] WBC (Bld) [#/Vol] 4.9 10*3/uL 3.6 - 10.7 10*3/uL [facility] CBC WITH AUTO DIFFERENTIALon 11-28-2023 Basophils (Bld) [#/Vol] 0.0 10*3/uL Normal 0.0-0.2 [facility] Comment on above: Performed By: #### L [id number] ####Assistant Track Coach: REINIER ZHU ([id number])[facility] ([facility])[address] Basophils/100 WBC (Bld) 0.4 % Normal 0.0-2.0 [facility] Comment on above: Performed By: #### L [id number] ####Assistant Track Coach: REINIER ZHU ([id number])[facility] ([facility])[address] Eosinophils (Bld) [#/Vol] 0.1 10*3/uL Normal 0.0-0.5 [facility] Comment on above: Performed By: #### L [id number] ####Assistant Track Coach: REINIER ZHU ([id number])[facility] (SBHLAB)[address] Eosinophils/100 WBC (Bld) 1.4 % Normal 0.0-6.0 [facility] Comment on above: Performed By: #### L [id number] ####Assistant Track Coach: REINIER ZHU ([id number])[facility] (SBAB)[address] Erythrocyte distribution width (RBC) [Ratio] 14.4 % Normal 11.5-15.0 [facility] Comment on above: Performed By: #### L [id number] ####Assistant Track Coach: REINIER ZHU ([id number])[facility] (SBAB)[address] Hematocrit (Bld) [Volume fraction] 40.9 % Normal 40.0-52.0 [facility] Comment on above: Performed By: #### L [id number] ####Assistant Track Coach: REINIER ZHU ([id number])[facility] (SBAB)[address] Hemoglobin (Bld) [Mass/Vol] 13.7 g/dL Normal 13.0-18.0 [facility] Comment on above: Performed By: #### L [id number] ####Assistant Track Coach: REINIER ZHU ([id number])[facility] (SBHLAB)[address] IMMATURE GRANS % 0.2 % Normal 0.0-2.0 [facility] Comment on above: Performed By: #### L [id number] ####Assistant Track Coach: REINIER ZHU ([id number])[facility] (SBAB)[address] IMMATURE GRANS ABSOLUTE 0.0 10*3/uL Normal <0.1 [facility] Comment on above: Performed By: #### L [id number] ####Assistant Track Coach: REINIER ZHU ([id number])[facility] [place] (SB[facility])[address] Lymphocytes (Bld) [#/Vol] 1.4 10*3/uL Normal 1.0-4.3 [facility] Comment on above: Performed By: #### L [id number] ####Assistant Track Coach: REINIER ZHU ([id number])[facility] [place] (SB[facility]AB)[address] Lymphocytes/100 WBC (Bld) 28.5 % Normal 15.0-45.0 [facility] Comment on above: Performed By: #### L [id number] ####Assistant Track Coach: REINIER ZHU ([id number])[facility] [place] (SB[facility])[address] MCH (RBC) [Entitic mass] 31.6 pg Normal 26.0-34.0 [facility] Comment on above: Performed By: #### L [id number] ####Assistant Track Coach: REINIER ZHU ([id number])[facility] [place] (SB[facility])[address] MCHC 33.5 % Normal 30.5-36.0 [facility] Comment on above: Performed By: #### L [id number] ####Assistant Track Coach: REINIER ZHU ([id number])[facility] [place] (SB[facility])[address] MCV (RBC) [Entitic vol] 94.2 fL Normal 77.0-99.0 [facility] Comment on above: Performed By: #### L [id number] ####Assistant Track Coach: REINIER ZHU ([id number])[facility] [place] (SBHLAB)[address] [place] [address] [place] Monocytes (Bld) [#/Vol] 0.7 10*3/uL Normal 0.0-0.9 [facility] Comment on above: Performed By: #### L [id number] ####Assistant Track Coach: REINIER ZHU ([id number])[facility] [place] (SBHLAB)[address] Monocytes/100 WBC (Bld) 14.3 % High 5.0-13.[address] [facility] Comment on above: Performed By: #### L [id number] ####Assistant Track Coach: REINIER ZHU ([id number])[facility] [place] (SB[facility])[address] NEUTROPHILS ABSOLUTE 2.7 10*3/uL Normal 1.8-7.5 [facility] Comment on above: Performed By: #### L [id number] ####Assistant Track Coach: REINIER ZHU ([id number])[facility] [place] ([facility])[address] Neutrophils/100 WBC (Bld) 55.2 % Normal 38.0-82.0 [facility] Comment on above: Performed By: #### L [id number] ####Assistant Track Coach: REINIER ZHU ([id number])[facility] [place] (SBHLAB)[address] NRBC 0.0 /100 WBCs Normal 0.0-2.0 [facility] Comment on above: Performed By: #### L [id number] ####Assistant Track Coach: REINIER ZHU ([id number])[facility] [place] (SB[facility])[address] Platelet mean volume (Bld) [Entitic vol] 8.5 fL Low 9.0-12.7 [facility] Comment on above: Performed By: #### L [id number] ####Assistant Track Coach: REINIER ZHU ([id number])[facility] [place] (SB[facility])155 [place] [address] [place] Platelets (Bld) [#/Vol] 210 10*3/uL Normal 140-440 [facility] Comment on above: Performed By: #### L [id number] ####Assistant Track Coach: REINIERJA ZHU ([id number])[facility] [place] (SBHLAB)[address] RBC (Bld) [#/Vol] 4.34 10*6/uL Low 4.40-5.90 [facility] Comment on above: Performed By: #### L [id number] ####Assistant Track Coach: REINIER MARKO ([id number])[facility] ([facility])[address] WBC (Bld) [#/Vol] 4.9 10*3/uL Normal 3.6-10.7 [facility] Comment on above: Performed By: #### L [id number] ####Assistant Track Coach: REINIER MORINROGER ([id number])[facility] (SBHLAB)[address] [place] [address] Consulton 11-28-2023 Consult Normal [facility] ECG 12-LEADon 11-28-2023 ECG 12-LEAD IMPRESSION: Sinus tachycardia Probable left atrial enlargement RSR' in V1 or V2, right VCD or RVH Borderline T abnormalities, anterior leads No significant changes compared to 07/27/2023 Electronically Signed On 11-28-2023 04:56:24 EDT by Val Torres [facility] ED Nursing Noteon 11-28-2023 ED Nursing Note Unit made aware of impending patient transport to the unit via broadcast. Judy Higgins RN 11/28/23 1650 [facility] ED Nursing Note O2 turned up to 4L N C due to low saturation in 70's while sleeping Gris Dillon RN 11/28/23 1500 Normal [facility] ED Nursing Note 2L NC applied due to O2 sat in 80's while sleeping Gris Dillon RN 11/28/23 1425 [facility] No Panel Informationon 11-27 P [place] 77 degrees [facility] RI Interval 158 ms [facility] QRS [place] 85 degrees [facility] QRSD Interval 94 [facility] Interval 338 ms [facility] QTC Interval 463 ms [facility] T Wave [place] 56 degrees [facility] Sinus tachycardia Probable left atrial enlargement [...] On 11-28-2023 04:56:24 EDT by Val Torres [facility] Nursing Noteon 11-28-2023 Nursing Note Normal [facility] Vital signson 11-28-2023 Heart rate 113 /min bpm [facility] CBC (HEMOGRAM)on 11-27-2023 Erythrocyte distribution width (RBC) [Ratio] 14.5 % Normal 11.5-15.0 [facility] Comment on above: Performed By: #### L [id number] ####Assistant Track Coach: REINIER ZHU ([phone])[facility] ([facility])[address] [place] [address] Hematocrit (Bld) [Volume fraction] 44.2 % Normal 40.0-52.0 [facility] Comment on above: Performed By: #### L [id number] ####Assistant Track Coach: REINIER ZHU ([phone])[facility] ([facility])[address] [place] [address] Hemoglobin (Bld) [Mass/Vol] 15.1 g/dL Normal 13.0-18.0 [facility] Comment on above: Performed By: #### L [id number] ####Assistant Track Coach: REINIER ZHU ([id number])[facility] ([facility])[address] [place] [address] MCH (RBC) [Entitic mass] 32.0 pg Normal 26.0-34.0 [facility] Comment on above: Performed By: #### L [id number] ####Assistant Track Coach: REINIER ZHU ([id number])[facility] [place] (SBHLAB)[address] MCHC 34.2 % Normal 30.5-36.0 [facility] Comment on above: Performed By: #### L [id number] ####Assistant Track Coach: REINIER MORINROGER ([id number])[facility] [place] (SBHLAB)[address] MCV (RBC) [Entitic vol] 93.6 fL Normal 77.0-99.0 [facility] Comment on above: Performed By: #### L [id number] ####Assistant Track Coach: REINIER ZHU ([phone])[facility] [place] (SBHLAB)[address] Platelet mean volume (Bld) [Entitic vol] 8.4 fL Low 9.0-12.7 [facility] Comment on above: Performed By: #### L [id number] ####Assistant Track Coach: REINIER ZHU ([id number])[facility] [place] (SBHLAB)[address] Platelets (Bld) [#/Vol] 248 10*3/uL Normal 140-440 [facility] Comment on above: Performed By: #### L [id number] ####Assistant Track Coach: REINIER ZHU ([id number])[facility] [place] (SBHLAB)[address] RBC (Bld) [#/Vol] 4.72 10*6/uL Normal 4.40-5.90 [facility] Comment on above: Performed By: #### L [id number] ####Assistant Track Coach: REINIER ZHU ([id number])[facility] [place] (SBHLAB)155 [place] [address] [place] WBC (Bld) [#/Vol] 6.0 10*3/uL Normal 3.6-10.7 [facility] Comment on above: Performed By: #### L [id number] ####Assistant Track Coach: REINIER ZHU ([phone])[facility] VIRAJGHADA (SBHLAB)[address] CBC panel Auto (Bld)on 11-26 Erythrocyte distribution width (RBC) [Ratio] 14.5 % 11.5 - 15.0 % [facility] Hematocrit (Bld) [Volume fraction] 44.2 % 40.0 - 52.0 % [facility] Hemoglobin (Bld) [Mass/Vol] 15.1 g/dL 13.0 - 18.0 g/dL [facility] Interpretation and review of laboratory results Abnormal [facility] MCH (RBC) [Entitic mass] 32.0 pg 26. 0 - 34.0 pg [facility] MCHC (RBC) [Mass/Vol] 34.2 % 30.5 - 36.0 % [facility] MCV (RBC) [Entitic vol] 93.6 fL 77.0 - 99.0 fL [facility] Platelet mean volume (Bld) [Entitic vol] 8.4 fL Low 9.0 - 12.7 fL [facility] Platelets (Bld) [#/Vol] 248 10*3/uL 140 - 440 10*3/uL [facility] RBC (Bld) [#/Vol] 4.72 10*6/uL 4.40 - 5.9 0 10*6/uL [facility] WBC (Bld) [#/Vol] 6.0 10*3/uL 3.6 - 10.7 10*3/uL [facility] COMPREHENSIVE METABOLIC PANE Arnulfo 11-27-2023 Albumin [Mass/Vol] 4.3 g/dL Normal 3.5-5.0 [facility] Comment on above: Performed By: #### L [id number], [id number], LAB17 ####Assistant Track Coach: REINIER ZHU ([id number])[facility] (SBHLAB)[address] ALP [Catalytic activity/Vol] 99 U/L Normal 38-126 [facility] Comment on above: Performed By: #### L AB46, [id number], LAB17 ####Assistant Track Coach: REINIER ZHU ([id number])[facility] [place] (SB[facility]AB)[address] ALT [Catalytic activity/Vol] 27 U/L Normal 0-49 [facility] Comment on above: Performed By: #### L AB46, [id number], LAB17 ####Assistant Track Coach: REINIER ZHU ([id number])[facility] [place] (SBHLAB)[address] Anion gap [Moles/Vol] 11 mmol/L Normal 3-13 [facility] Comment on above: Performed By: #### L AB46, [id number], LAB17 ####Assistant Track Coach: REINIER ZHU ([id number])[facility] (SBHLAB)[address] AST [Catalytic activity/Vol] 42 U/L Normal 15-46 [facility] Comment on above: Performed By: #### L AB46, [id number], LAB17 ####Assistant Track Coach: REINIER ZHU ([phone])[facility] [place] (SBHLAB)[address] Bilirubin [Mass/Vol] 0.4 mg/dL Normal 0.2-1.3 [facility] Comment on above: Performed By: #### L AB46, [id number], LAB17 ####Assistant Track Coach: REINIER ZHU ([id number])[facility] [place] (SB[facility]AB)[address] Calcium [Mass/Vol] 8.7 mg/dL Normal 8.4-10.4 [facility] Comment on above: Performed By: #### L AB46, [id number], LAB17 ####Assistant Track Coach: REINIER ZHU ([id number])[facility] [place] (SBHLAB)[address] [place] [address] [place] Chloride [Moles/Vol] 101 mmol/L Normal 98-107 [facility] Comment on above: Performed By: #### L AB46, [id number], LAB17 ####Assistant Track Coach: REINIER ZHU ([phone])[facility] (SBHLAB)[address] CO2 [Moles/Vol] 27 mmol/L Normal 22-30 [facility] Comment on above: Performed By: #### L AB46, GPS108, LAB17 ####Assistant Track Coach: RENIIER ZHU ([phone])[facility] (SBHLAB)[address] Creatinine [Mass/Vol] 0.64 mg/dL Low 0.66-1.25 [facility] Comment on above: Performed By: #### L AB46, [id number], LAB17 ####Assistant Track Coach: REINIER ZHU ([phone])[facility] (SBHLAB)[address] GLOMERULAR FILTRATION RATE ML/MIN/1.73 SQ M.PREDICTED >90.0 Normal >60.0 [facility] Comment on above: Result Comment: Calc ulation based on the Chronic Kidney Disease Epidemiology Collaboration (CKD-EPI) equation refit without adjustment for race Performed By: #### L AB46, [id number], LAB17 ####Assistant Track Coach: REINIER ZHU ([phone])[facility] (SBHLAB)[address] Glucose [Mass/Vol] 97 mg/dL Normal 70-100 [facility] Comment on above: Performed By: #### L AB46, [id number], LAB17 ####Assistant Track Coach: REINIER ZHU ([id number])[facility] (SBHLAB)[address] Potassium [Moles/Vol] 4.2 mmol/L Normal 3.5-5.1 [facility] Comment on above: Performed By: #### L AB46, [id number], LAB17 ####Assistant Track Coach: REINIER ZHU ([id number])[facility] ([facility])[address] Protein [Mass/Vol] 7.3 g/dL Normal 6.3-8.2 [facility] Comment on above: Performed By: #### L AB46, [id number], LAB17 ####Assistant Track Coach: REINIER ZHU ([id number])[facility] [place] ([facility])[address] Sodium [Moles/Vol] 139 mmol/L Normal 135-145 [facility] Comment on above: Performed By: #### L AB46, [id number], LAB17 ####Assistant Track Coach: REINIER ZHU ([id number])[facility] [place] (SBHLAB)[address] Urea nitrogen [Mass/Vol] 7 mg/dL Low 9-20 [facility] Comment on above: Performed By: #### L AB46, [id number], LAB17 ####Assistant Track Coach: REINIER ZHU ([id number])[facility] ([facility])[address] Comprehensive metabolic 1998 panelon 11-27-2023 Albumin [Mass/Vol] 4.3 g/dL 3.5 - 5.0 g/dL [facility] ALP [Catalytic activity/Vol] 99 U/L 38 - 126 U/L [facility] ALT [Catalytic activity/Vol] 27 U/L 0 - 49 U/L [facility] Anion gap [Moles/Vol] 11 mmol/L 3 - 13 mmol/L [facility] AST [Catalytic activity/Vol] 42 U/L 15 - 46 U/L [facility] Bilirubin [Mass/Vol] 0.4 mg/dL 0.2 - 1 .3 mg/dL [facility] Calcium [Mass/Vol] 8.7 mg/dL 8.4 - 10. 4 mg/dL [facility] Chloride [Moles/Vol] 101 mmol/L 98 - 10 7 mmol/L [facility] CO2 [Moles/Vol] 27 mmol/L 22 - 30 mmol/L [facility] Creatinine [Mass/Vol] 0.64 mg/dL Low 0.66 - 1.25 mg/dL [facility] GFR/1.73 sq M.predicted (S/P/Bld) [Vol rate/Area] - PINF [facility] Comment on above: Calculation based on the Chronic Kidney Disease Epidemiology Collaboration (CKD-EPI) equation refit without adjustment for race Glucose [Mass/Vol] 97 mg/dL 70 - 100 mg/dL [facility] Potassium [Moles/Vol] 4.2 mmol/L 3.5 - 5.1 mmol/L [facility] Protein [Mass/Vol] 7.3 g/dL 6.3 - 8.2 g/dL [facility] Sodium [Moles/Vol] 139 mmol/L 135 - 145 mmol/L [facility] Urea nitrogen [Mass/Vol] 7 mg/dL Low 9 - 20 mg/dL [facility] DRUGS OF ABUSEon 11-27-2023 AMPHETAMINE SCREEN Negative Normal [facility] Comment on above: Performed By: #### L [id number] ####Assistant Track Coach: REINIER ZHU ([id number])[facility] ([facility])[address] [place] [address] BARBITURATES SCREEN Negative Normal [facility] Comment on above: Performed By: #### L [id number] ####Assistant Track Coach: REINIER ZHU ([id number])[facility] ([facility])[address] [place] [address] BENZODIAZEPINE SCREEN Negative Normal [facility] Comment on above: Performed By: #### L [id number] ####Assistant Track Coach: REINIER ZHU ([id number])[facility] ([facility] [place] [address] COCAINE METAB. SCREEN Negative Normal [facility] Comment on above: Performed By: #### L [id number] ####Assistant Track Coach: REINIER ZHU ([id number])[facility] ([facility] [place] [address] METHADONE SCREEN Negative Normal [facility] Comment on above: Performed By: #### L [id number] ####Assistant Track Coach: REINIER ZHU ([id number])[facility] [place] (SBHLAB)[address] OPIATES SCREEN Negative Normal [facility] Comment on above: Performed By: #### L [id number] ####Assistant Track Coach: REINIER HZU ([id number])[facility] (SBHL[facility])[address] OXYCODONE SCREEN Negative Normal [facility] Comment on above: Performed By: #### L [id number] ####Assistant Track Coach: REINIER ZHU ([id number])[facility] (SBHLAB)[address] PHENCYCLIDINE SCREEN Negative Normal [facility] Comment on above: Result Comment: MILAGROSE R COMMENTS:The expected value for all of [...] under separate order. Performed By: #### L [id number] ####Assistant Track Coach: REINIER ZHU ([id number])[facility] (SBHLAB)[address] ED Nursing Noteon 11-27-2023 ED Nursing Note Normal [facility] ED Nursing Note Detox rules read and signed by patient. Witnessed by this RN. Larry Avila RN 11/27/23 9161 Normal [facility] ED Provider Noteon ED Provider Note Normal [facility] ETHANOLon 11-27-2023 ETHANOL IN SER/PLAS 0.297 g/dL High 0.000-0.010 [facility] Comment on above: Result Comment: ORDE R COMMENTS:NOTE: This result is for medical treatment only. Analysis performed using non-forensic procedures. Performed By: #### L AB46, [id number], LAB17 ####Assistant Track Coach: REINIER ZHU ([id number])[facility] ([facility])[address] Ethanol (Bld) [Mass/Vol]on 0 11-27-2023 Ethanol [Mass/Vol] 0.297 g/dL High 0.000 - 0.010 g/dL [facility] Laboratory - Chemistry and C hemistry - challengeon 11-27-2023 Magnesium [Mass/Vol] 2.0 mg/dL 1.6 - 2 .3 mg/dL [facility] Laboratory - Drug toxicology Ordered By: Mitul Olson on 11-27-2023 Amphetamines Screen method >1000 ng/mL Ql (U) Negative [facility] Barbiturates Screen method >200 ng/mL Ql (U) [facility] Benzod[facility]ines Ql (U) Negative [facility] Methadone Screen Ql (U) Negative [facility] Opiates Screen Ql (U) Negative [facility] oxyCODONE Ql (U) Negative [facility] alth Phencyclidine Ql (U) Negative [facility] Laboratory - Microbiology an d Antimicrobial susceptibilityOrdered By: Maite Fleming on 11-27-2023 SARS-CoV-2 (COVID-19) Ag IA.rapid Ql (Resp) Negative Negative [facility] Comment on above: A negative result do es not rule out the possibility of SARS-CoV-2 infection. NAAT-based methods should be considered for symptomatic patients presenting greater than seven days after onset of symptoms. Method: Lateral flow immunoassay. Fact sheets for healthcare providers and patients can be found at the following sites: https://www.fda.gov/media/269479/download https://www.fda.gov/media/839998/download MAGNESIUMon 11-27-2023 Magnesium [Mass/Vol] 2.0 mg/dL Normal 1.6-2.3 [facility] Comment on above: Performed By: #### L AB46, [id number], LAB17 ####Assistant Track Coach: REINIER ZHU ([phone])[facility] ([facility] Magnesium [Mass/Vol]on 11-26 Interpretation and review of laboratory results Normal [facility] No Panel Informationon 11-26 Interpretation and review of laboratory results Abnormal [facility] No Panel InformationOrdered By: Mitul Olson on 11-27-2023 COCAINE METAB. SCREEN Negative [facility] The expected value f or all of [...] is needed, request confirmation under separate order. [facility] SARS-COV-2 ANTIGENon 024 SARS-COV-2 ANTIGEN Normal [facility] Comment on above: Performed By: #### L [id number] ####Assistant Track Coach: REINIER ZHU ([phone])[facility]ERAnum ([facility])[address] SARS-CoV-2 (COVID-19) Ag IA. rapid Ql (Resp)Ordered By: Maite lFeming on 11-27-2023 Interpretation and review of laboratory results Normal [facility] Laboratory - Drug toxicology on 07-30-2023 PHENobarbital [Mass/Vol] 14.9 ug/mL 10. 0 - 40.0 ug/mL [facility] No Panel Informationon 07-29 Interpretation and review of laboratory results Normal [facility] Basic metabolic 1998 panelon 07-27-2023 Anion gap [Moles/Vol] 12 mmol/L 3 - 13 mmol/L [facility] Calcium [Mass/Vol] 8.9 mg/dL 8.4 - 10. 4 mg/dL [facility] Chloride [Moles/Vol] 98 mmol/L 98 - 10 7 mmol/L [facility] CO2 [Moles/Vol] 26 mmol/L 22 - 30 mmol/L [facility] [employer] Creatinine [Mass/Vol] 0.62 mg/dL Low 0.66 - 1.25 mg/dL [facility] [employer] GFR/1.73 sq M.predicted MDRD (S/P/Bld) [Vol rate/Area] - PINF [facility] Comment on above: Calculation based on the Chronic Kidney Disease Epidemiology Collaboration (CKD-EPI) equation refit without adjustment for race Glucose [Mass/Vol] 128 mg/dL High 70 - 100 mg/dL [facility] [employer] Potassium [Moles/Vol] 3.9 mmol/L 3.5 - 5.1 mmol/L [facility] [employer] Sodium [Moles/Vol] 136 mmol/L 135 - 145 mmol/L [facility] [employer] Urea nitrogen [Mass/Vol] 4 mg/dL Low 9 - 20 mg/dL [facility] [employer] CBC W Auto Differential pane l (Bld)Ordered By: Aurora Garcia on 07-27-2023 Basophils (Bld) [#/Vol] 0.1 10*3/uL 0.0 - 0.2 10*3/uL [facility] [employer] Basophils/100 WBC (Bld) 0.8 % 0.0 - 2.0 % [facility] [employer] Eosinophils (Bld) [#/Vol] 0.1 10*3/uL 0.0 - 0.5 10*3/uL [facility] [employer] Eosinophils/100 WBC (Bld) 1.7 % 0.0 - 6.0 % [facility] Erythrocyte distribution width (RBC) [Ratio] 13.0 % 11.5 - 15.0 % [facility] Hematocrit (Bld) [Volume fraction] 46.2 % 40.0 - 52.0 % [facility] Hemoglobin (Bld) [Mass/Vol] 16.3 g/dL 13.0 - 18.0 g/dL [facility] [employer] Immature granulocytes (Bld) [#/Vol] 0.0 10*3/uL NINF - 0.1 10*3/uL [facility] [employer] Immature granulocytes/100 WBC (Bld) 0.3 % 0.0 - 2.0 % [facility] Interpretation and review of laboratory results Abnormal [facility] [employer] Lymphocytes (Bld) [#/Vol] 1.7 10*3/uL 1.0 - 4.3 10*3/uL [facility] Lymphocytes/100 WBC (Bld) 27.2 % 15.0 - 45.0 % [facility] MCH (RBC) [Entitic mass] 34.0 pg 26. 0 - 34.0 pg [facility] MCHC (RBC) [Mass/Vol] 35.3 % 30.5 - 36.0 % [facility] MCV (RBC) [Entitic vol] 96.5 fL 77.0 - 99.0 fL [facility] Monocytes (Bld) [#/Vol] 0.7 10*3/uL 0.0 - 0.9 10*3/uL [facility] Monocytes/100 WBC (Bld) 11.0 % 5.0 - 13.0 % [facility] Neutrophils (Bld) [#/Vol] 3.8 10*3/uL 1.8 - 7.5 10*3/uL [facility] Neutrophils/100 WBC (Bld) 59.0 % 38.0 - 82.0 % [facility] Nucleated RBC/100 WBC (Bld) [Ratio] 0.0 % [facility] Platelet mean volume (Bld) [Entitic vol] 8.6 fL Low 9.0 - 12.7 fL [facility] Platelets (Bld) [#/Vol] 296 10*3/uL 140 - 440 10*3/uL [facility] RBC (Bld) [#/Vol] 4.79 10*6/uL 4.40 - 5.9 0 10*6/uL [facility] WBC (Bld) [#/Vol] 6.4 10*3/uL 3.6 - 10.7 10*3/uL [facility] CT Abdomen and Pelvis W cont rast Main 07-27-2023 1. No acute findings. 2. Hepatic steatosis. 3. Sigmoid colon diverticulosis without evidence of diverticulitis. Report Dictated on Electronically Signed By: Sen Bear MD Electronically Signed Date/Time: 07/27/2023 8:52 PM T [facility] Patient Name: MARIA DE JESUS HOGAN : [...] scattered in the thoracic and lumbar spine. [facility] Sen Bear MD - 07/27/2023 Patient [...] Electronically Signed Date/Time: 07/27/2023 8:52 PM EDT [facility] Radiology Study observation (narrative) Pedro Alex alth CT Abdomen and Pelvis W cont rast IVOrdered By: Sen Bear on 07-27-2023 [facility] Work Phone: Ethanol (Bld) [Mass/Vol]Orde red By: Jyotsna Peralta on 07-27-2023 Ethanol [Mass/Vol] 0.337 g/dL Critically high 0.000 - 0.010 g/dL [facility] Interpretation and review of laboratory results Abnormal [facility] Hepatic function 2000 panelo n 07-27-2023 Albumin [Mass/Vol] 4.5 g/dL 3.5 - 5.0 g/dL [facility] ALP [Catalytic activity/Vol] 113 U/L 38 - 126 U/L [facility] ALT [Catalytic activity/Vol] 77 U/L High 0 - 49 U/L [facility] AST [Catalytic activity/Vol] 102 U/L High 15 - 46 U/L [facility] Bilirubin [Mass/Vol] 0.6 mg/dL 0.2 - 1 .3 mg/dL [facility] [facility] Bilirubin.conjugated [Mass/Vol] 0.0 mg/dL 0.0 - 0.3 mg/dL [facility] Protein [Mass/Vol] 7.6 g/dL 6.3 - 8.2 g/dL [facility] Laboratory - Chemistry and C hemistry - challengeon 07-27-2023 Lipase [Catalytic activity/Vol] 282 U/L 23 - 300 U/L [facility] Laboratory - Drug toxicology on 07-27-2023 Amphetamines Screen method >1000 ng/mL Ql (U) Negative [facility] Barbiturates Screen method >200 ng/mL Ql (U) Positive [facility] Benzodiazepines Ql (U) Negative [facility] Methadone Screen Ql (U) Negative [facility] Opiates Screen Ql (U) Negative [facility] oxyCODONE Ql (U) Negative [facility] alth Phencyclidine Ql (U) Negative [facility] Laboratory - Microbiology an d Antimicrobial susceptibilityon 07-27-2023 SARS-CoV-2 (COVID-19) Ag IA.rapid Ql (Resp) Negative Negative [facility] Comment on above: A negative result do es not rule out the possibility of SARS-CoV-2 infection. NAAT-based methods should be considered for symptomatic patients presenting greater than seven days after onset of symptoms. Method: Lateral flow immunoassay. Fact sheets for healthcare providers and patients can be found at the following sites: https://www.fda.gov/media/612161/download https://www.fda.gov/media/915825/download Lipase [Catalytic activity/V ol]on 07-27-2023 Interpretation and review of laboratory results Normal [facility] No Panel Informationon 07-26 COCAINE METAB. SCREEN Negative [facility] The expected value f or all of [...] is needed, request confirmation under separate order. [facility] Interpretation and review of laboratory results Abnormal [facility] P [place] 66 degrees [facility] RI Interval 156 ms [facility] QRS [place] 68 degrees [facility] QRSD Interval 96 ms [facility] QT Interval 358 ms [facility] QTC Interval 461 ms [facility] T Wave [place] 46 degrees [facility] Sinus rhythm Anterior infarct, age indeterminate Electronically Signed On 07-27-2023 19:06:02 EDT by Triston Abraham CV Triston Lehman MD - 07/27/2023 IMPRESSION: Sinus rhythm Anterior infarct, age indeterminate Electronically Signed On 07-27-2023 19:06:02 EDT by Triston bAraham [facility] SARS-CoV-2 (COVID-19) Ag IA. rapid Ql (Resp)on 07-27-2023 Interpretation and review of laboratory results Normal [facility] Vital signson 07-27-2023 Heart rate 99 /min bpm [facility] CBC W Auto Differential pane l (Bld)Ordered By: Chip Clinton on 07-08-2023 Basophils (Bld) [#/Vol] 0.0 10*3/uL 0.0 - 0.2 10*3/uL [facility] Basophils/100 WBC (Bld) 0.7 % 0.0 - 2.0 % [facility] Eosinophils (Bld) [#/Vol] 0.1 10*3/uL 0.0 - 0.5 10*3/uL [facility] Eosinophils/100 WBC (Bld) 1.0 % 0.0 - 6.0 % [facility] Erythrocyte distribution width (RBC) [Ratio] 13.7 % 11.5 - 15.0 % [facility] Hematocrit (Bld) [Volume fraction] 45.6 % 40.0 - 52.0 % [facility] Hemoglobin (Bld) [Mass/Vol] 16.1 g/dL 13.0 - 18.0 g/dL [facility] Immature granulocytes (Bld) [#/Vol] 0.0 10*3/uL NINF - 0.1 10*3/uL [facility] Immature granulocytes/100 WBC (Bld) 0.2 % 0.0 - 2.0 % [facility] Interpretation and review of laboratory results Abnormal [facility] Lymphocytes (Bld) [#/Vol] 1.7 10*3/uL 1.0 - 4.3 10*3/uL [facility] Lymphocytes/100 WBC (Bld) 29.7 % 15.0 - 45.0 % [facility] MCH (RBC) [Entitic mass] 34.0 pg 26. 0 - 34.0 pg [facility] MCHC (RBC) [Mass/Vol] 35.3 % 30.5 - 36.0 % [facility] MCV (RBC) [Entitic vol] 96.2 fL 77.0 - 99.0 fL [facility] Monocytes (Bld) [#/Vol] 0.5 10*3/uL 0.0 - 0.9 10*3/uL [facility] Monocytes/100 WBC (Bld) 9.0 % 5.0 - 13.0 % [facility] Neutrophils (Bld) [#/Vol] 3.5 10*3/uL 1.8 - 7.5 10*3/uL [facility] Neutrophils/100 WBC (Bld) 59.4 % 38.0 - 82.0 % [facility] Nucleated RBC/100 WBC (Bld) [Ratio] 0.0 % [facility] Platelet mean volume (Bld) [Entitic vol] 8.8 fL Low 9.0 - 12.7 fL [facility] Platelets (Bld) [#/Vol] 240 10*3/uL 140 - 440 10*3/uL [facility] RBC (Bld) [#/Vol] 4.74 10*6/uL 4.40 - 5.9 0 10*6/uL [facility] WBC (Bld) [#/Vol] 5.9 10*3/uL 3.6 - 10.7 10*3/uL [facility] Comprehensive metabolic 1998 panelon 07-08-2023 Albumin [Mass/Vol] 4.5 g/dL 3.5 - 5.0 g/dL [facility] ALP [Catalytic activity/Vol] 113 U/L 38 - 126 U/L [facility] ALT [Catalytic activity/Vol] 52 U/L High 0 - 49 U/L [facility] Anion gap [Moles/Vol] 13 mmol/L 3 - 13 mmol/L [facility] AST [Catalytic activity/Vol] 79 U/L High 15 - 46 U/L [facility] Bilirubin [Mass/Vol] 0.9 mg/dL 0.2 - 1 .3 mg/dL [facility] Calcium [Mass/Vol] 9.0 mg/dL 8.4 - 10. 4 mg/dL [facility] Chloride [Moles/Vol] 94 mmol/L Low 98 - 10 7 mmol/L [facility] CO2 [Moles/Vol] 26 mmol/L 22 - 30 mmol/L [facility] Creatinine [Mass/Vol] 0.69 mg/dL 0.66 - 1.25 mg/dL [facility] GFR/1.73 sq M.predicted MDRD (S/P/Bld) [Vol rate/Area] - PINF [facility] Comment on above: Calculation based on the Chronic Kidney Disease Epidemiology Collaboration (CKD-EPI) equation refit without adjustment for race Glucose [Mass/Vol] 125 mg/dL High 70 - 100 mg/dL [facility] Interpretation and review of laboratory results Abnormal [facility] Potassium [Moles/Vol] 4.5 mmol/L 3.5 - 5.1 mmol/L [facility] Protein [Mass/Vol] 8.0 g/dL 6.3 - 8.2 g/dL [facility] Sodium [Moles/Vol] 134 mmol/L Low 135 - 145 mmol/L [facility] Urea nitrogen [Mass/Vol] 4 mg/dL Low 9 - 20 mg/dL [facility] Ethanol (Bld) [Mass/Vol]Orde red By: Shellie Morel on 07-08-2023 Ethanol [Mass/Vol] 0.358 g/dL Critically high 0.000 - 0.010 g/dL [facility] Interpretation and review of laboratory results Abnormal [facility] Laboratory - Drug toxicology on 07-08-2023 Amphetamines Screen method >1000 ng/mL Ql (U) Negative [facility] Barbiturates Screen method >200 ng/mL Ql (U) Negative [facility] Benzodiazepines Ql (U) Negative [facility] Methadone Screen Ql (U) Negative [facility] Opiates Screen Ql (U) Negative [facility] oxyCODONE Ql (U) Negative [facility] alth Phencyclidine Ql (U) Negative [facility] Laboratory - Microbiology an d Antimicrobial susceptibilityOrdered By: Mitul Olson on 07-08-2023 SARS-CoV-2 (COVID-19) Ag IA.rapid Ql (Resp) Negative Negative [facility] Comment on above: A negative result do es not rule out the possibility of SARS-CoV-2 infection. NAAT-based methods should be considered for symptomatic patients presenting greater than seven days after onset of symptoms. Method: Lateral flow immunoassay. Fact sheets for healthcare providers and patients can be found at the following sites: https://www.fda.gov/media/664019/download https://www.fda.gov/media/283966/download No Panel Informationon 07-07 COCAINE METAB. SCREEN Negative [facility] The expected value f or all of [...] is needed, request confirmation under separate order. [facility] P [place] 58 degrees [facility] RI Interval 149 ms [facility] QRS [place] 81 degrees [facility] QRSD Interval [address] [facility] h QT Interval 360 ms [facility] QTC Interval 474 ms [facility] T Wave [place] 39 degrees [facility] Sinus tachycardia Probable left atrial enlargement No previous ECG available for comparison Electronically Signed On 07-08-2023 18:36:57 EDT by Catalino Mujica CV Catalino Hernandez MD - 07/08/2023 IMPRESSION: Sinus tachycardia Probable left atrial enlargement No previous ECG available for comparison Electronically Signed On 07-08-2023 18:36:57 EDT by Catalino Mujica [facility] SARS-CoV-2 (COVID-19) Ag IA. rapid Ql (Resp)Ordered By: Mitul Olson on 07-08-2023 Interpretation and review of laboratory results Normal [facility] Vital signson 07-08-2023 Heart rate 104 /min bpm [facility] Laboratory - Drug toxicology Ordered By: Bipin Wilson on 05-21-2023 Amphetamines Ql (U) Negative Negative [facility] Benzodiazepines Ql (U) Negative Negative [facility] Cocaine Ql (U) Negative Negative [facility] Ethanol [Mass/Vol] Positive Negative [facility] Methadone Ql (U) Negative Negative [facility] Opiates Ql (U) Negative Negative [facility] No Panel InformationOrdered By: Keila Marina on 05-21-2023 P [place] 78 degrees [facility] Work Phone: RI Interval 154 ms [facility] Work Phone: QRS [place] 75 degrees [facility] Work Phone: QRSD Interval 105 ms [facility] Work Phone: QT Interval 381 ms [employer] Work Phone: QTC Interval 484 ms [facility] Work Phone: T Wave [place] 60 degrees [employer] Work Phone: [facility] Work Phone: No Panel Informationon 05-21 Sinus rhythm Consider left atrial enlargement Abnormal T, consider ischemia, anterior leads no significant change from prior Electronically Signed On 05-21-2023 13:12:25 EST by Keila Gomez, DO - 05/21/2023 IMPRESSION: Sinus rhythm Consider left atrial enlargement Abnormal T, consider ischemia, anterior leads no significant change from prior Electronically Signed On 05-21-2023 13:12:25 EST by Keila Marina [facility] [employer] ETHYL GLUCURONIDE, URINE Positive Negative [facility] Ethyl Glucuronide sainz s been screened by [...] been determined by the clinical laboratories of [facility]. [facility] [employer] No Panel InformationOrdered By: Bipin Wilson on 05-21-2023 BARBITURATES Negative Negative [facility] BUPRENORPHINE SCREEN Negative Negative [facility] FENTANYL Negative Negative [facility] OXYCODONE/OXYMORPHONE Negative Negative [facility] PCP Negative Negative [facility] THC Negative Negative [facility] The expected value f or the drugs listed above is Negative. The following drugs or drug groups have been screened for by Immunoassay at the following thresholds: Amphetamine class(1000ng/mL) Barbituates(200ng/mL) Benzodiazepines(200ng/ mL) Cocaine(300ng/mL) Ethanol (50 ng/mL) Methadone(300ng/mL) Opiates(300ng/mL) Oxycodone(100ng/mL) PCP(25ng/mL) Buprenorphine(5ng/mL) THC(50ng/mL) Fentanyl(1ng/mL) Positive results are NOT confirmed by a more specific alternative method unless requested. If confirmation is needed, request confirmation under separate order. NOTE: These results are for medical treatment only. Analysis performed using non-forensic procedures. [facility] Vital signsOrdered By: Keila Salas on 05-21-2023 Heart rate 97 /min bpm [facility] [employer] Work Phone: CBC W Auto Differential pane l (Bld)Ordered By: Mitul Olson on 05-20-2023 Basophils (Bld) [#/Vol] 0.1 10*3/uL 0.0 - 0.2 10*3/uL [facility] Basophils/100 WBC (Bld) 1.3 % 0.0 - 2.0 % [facility] Eosinophils (Bld) [#/Vol] 0.1 10*3/uL 0.0 - 0.5 10*3/uL [facility] Eosinophils/100 WBC (Bld) 1.1 % 1.0 - 6.0 % [facility] Erythrocyte distribution width (RBC) [Ratio] 14.2 % 11.5 - 14.5 % [facility] Hematocrit (Bld) [Volume fraction] 47.4 % 40.0 - 52.0 % [facility] Hemoglobin (Bld) [Mass/Vol] 16.3 g/dL 13.0 - 18.0 g/dL [facility] Interpretation and review of laboratory results Abnormal [facility] Lymphocytes (Bld) [#/Vol] 1.4 10*3/uL 1.0 - 4.3 10*3/uL [facility] Lymphocytes/100 WBC (Bld) 26.0 % 20.0 - 40.0 % [facility] MCH (RBC) [Entitic mass] 33.6 pg 26. 0 - 34.0 pg [facility] MCHC (RBC) [Mass/Vol] 34.4 % 32.0 - 36.0 % [facility] MCV (RBC) [Entitic vol] 97.7 fL 80.0 - 98.0 fL [facility] Monocytes (Bld) [#/Vol] 0.8 10*3/uL 0.0 - 0.8 10*3/uL [facility] Monocytes/100 WBC (Bld) 15.2 % High 2.0 - 10.0 % [facility] Neutrophils (Bld) [#/Vol] 3.1 10*3/uL 1.8 - 7.0 10*3/uL [facility] Neutrophils/100 WBC (Bld) 56.4 % 40.0 - 80.0 % [facility] [employer] Nucleated RBC/100 WBC (Bld) [Ratio] 0.1 % [employer] Platelet mean volume (Bld) [Entitic vol] 7.0 fL Low 7.4 - 12.4 fL [employer] Platelets (Bld) [#/Vol] 199 10*3/uL 140 - 440 10*3/uL [facility] RBC (Bld) [#/Vol] 4.86 10*6/uL 4.40 - 5.9 0 10*6/uL [facility] [employer] WBC (Bld) [#/Vol] 5.5 10*3/uL 3.6 - 10.7 10*3/uL [facility] [employer] [facility] CT Abdomen and Pelvis W cont rast Main 05-20-2023 No acute findings. Report Dictated on Electronically Signed By: Johnson Haro MD Electronically Signed Date/Time: 05/20/2023 10:13 PM EST [employer] Patient Name: MARIA DE JESUS OHGAN : 1965 Exam Date/Time: 05/20/2023 22:04 Procedure: [...] obstruction. No free fluid. Bladder is unremarkable. [facility] [employer] Johnson Haro MD - 05/20/2023 Patient [...] Electronically Signed Date/Time: 05/20/2023 10:13 PM EST [facility] Radiology Study observation (narrative) [facility] CT Abdomen and Pelvis W cont rast IVOrdered By: Johnson Haro on 05-20-2023 [facility] [employer] Work Phone: Comprehensive metabolic 1998 panelon 05-20-2023 Albumin [Mass/Vol] 4.2 g/dL 3.5 - 5.0 g/dL [facility] [employer] ALP [Catalytic activity/Vol] 104 U/L 38 - 126 U/L [facility] ALT [Catalytic activity/Vol] 140 U/L High 0 - 49 U/L [facility] [employer] Anion gap [Moles/Vol] 17 mmol/L High 3 - 13 mmol/L [facility] AST [Catalytic activity/Vol] 123 U/L High 15 - 46 U/L [facility] Bilirubin [Mass/Vol] 0.6 mg/dL 0.2 - 1 .3 mg/dL [facility] [employer] Calcium [Mass/Vol] 9.0 mg/dL 8.4 - 10. 4 mg/dL [facility] [employer] Chloride [Moles/Vol] 92 mmol/L Low 98 - 10 7 mmol/L [facility] CO2 [Moles/Vol] 21 mmol/L Low 22 - 30 mmol/L [facility] Creatinine [Mass/Vol] 0.60 mg/dL Low 0.66 - 1.25 mg/dL [facility] GFR/1.73 sq M.predicted MDRD (S/P/Bld) [Vol rate/Area] - PINF [facility] Comment on above: Calculation based on the Chronic Kidney Disease Epidemiology Collaboration (CKD-EPI) equation refit without adjustment for race Glucose [Mass/Vol] 119 mg/dL High 70 - 100 mg/dL [facility] Interpretation and review of laboratory results Abnormal [facility] Potassium [Moles/Vol] 3.8 mmol/L 3.5 - 5.1 mmol/L [facility] Protein [Mass/Vol] 7.4 g/dL 6.3 - 8.2 g/dL [facility] Sodium [Moles/Vol] 130 mmol/L Low 135 - 145 mmol/L [facility] Urea nitrogen [Mass/Vol] 5 mg/dL Low 9 - 20 mg/dL [facility] Laboratory - Chemistry and C hemistry - challengeon 05-20-2023 Base excess Calc (BldV) [Moles/Vol] -1.0000 mmol/L -3 - 3 mmol/L [facility] CO2 (BldV) [Partial pressure] 48.3 mm[Hg] [facility] HCO3 (Bld) [Moles/Vol] 25.6 mmol/L 23.0 - 27.0 mmol/L [facility] Oxygen (BldV) [Partial pressure] 53.3 mm[Hg] mm Hg [facility] pH (BldV) 7.333 [pH] 7.330 - 7.430 pH [facility] Troponin I.cardiac [Mass/Vol] ng/mL NINF - 0.034 ng/mL [facility] Lipase [Catalytic activity/Vol] 230 U/L 23 - 300 U/L [facility] Lipase [Catalytic activity/V ol]on 05-20-2023 Interpretation and review of laboratory results Normal [facility] No Panel Informationon 05-20 FIO2 [facility] Performed by: Pedro Hoyt [facility], [address] [place] [id number] CLIA ID: [id number] [facility] Radiology Study observation (narrative) [facility] alth Troponin I.cardiac [Mass/Vol ]on 05-20-2023 Interpretation and review of laboratory results Normal [facility] Patients with high levels of Biotin oral intake (ie >5 mg/day) may have falsely decreased Troponin levels. [facility] Urinalysis complete panel (U )Ordered By: Rebeca Rhodes on 05-20-2023 Bilirubin Ql (U) Negative Negative mg/dL [facility] Clarity (U) Clear Clear [facility] Color (U) Colorless Lt. Yellow [facility] Glucose Ql (U) Normal Normal (<70) mg/dL [facility] Hemoglobin Ql (U) Negative Negative mg/dL [facility] Interpretation and review of laboratory results Abnormal [facility] Ketones (U) [Mass/Vol] Negative Negat shiv mg/dL [facility] Leukocyte esterase Test strip Ql (U) Negative Negative Estefani/uL [facility] Nitrite Ql (U) Negative Negative [facility] th pH (U) 5.5 [pH] 5.0 - 8.0 pH [facility] Protein (U) [Mass/Vol] Negative Negat shiv mg/dL [facility] Specific gravity (U) [Rel density] 1.003 Low 1.005 - 1.030 [facility] Urobilinogen (U) [Mass/Vol] Normal Normal (0-1) mg/dL [facility] Vital signson 05-20-2023 Oxygen saturation in Venous blood 84.6 % [facility] Comment on above: Performed by CLIA ID : [id number] [place], [place] ?Device: [id number] [employer] Residential ID: [id number] XR Chest Single viewon 05-20 FINDINGS AND IMPRESSION: SUPPORT DEVICES: None OSSEOUS STRUCTURES: Degenerative changes in the thoracic spine. HEART AND MEDIASTINUM: The cardiomediastinal silhouette appears unchanged from the prior exam. LUNGS AND PLEURA: The lungs are clear.. Mildly elevated right hemidiaphragm, unchanged. No sizable pleural effusion. Report Dictated on Electronically Signed By: Harjinder Gotti MD Electronically Signed Date/Time: 05/20/2023 8:40 PM [facility] Patient Name: MARIA DE JESUS HOGAN : 1965 Exam Date/Time: 05/20/2023 20:23 Procedure: XR CHEST 1 VIEW Ordering Provider: LUNA QUENTIN Reason For Exam: sob CHEST CLINICAL INDICATION: Dyspnea TECHNIQUE: AP portable chest COMPARISON: 09/06/2021 [facility] Harjinder Gotti MD - 05/20/2023 Patient [...] MD Electronically Signed Date/Time: 05/20/2023 8:40 PM EST [facility] Radiology Study observation (narrative) [facility] XR Chest Single viewOrdered By: Harjinder Gotti on 05-20-2023 [facility] [employer] Work Phone: XR Hand - left 3 Viewson No acute fracture or dislocation identified. Report Dictated on Electronically Signed By: Nate De La O MD Electronically Signed Date/Time: 03/19/2023 11:04 AM EST [employer] Patient Name: MARIA DE JESUS HOGAN : [...] identified. There is no soft tissue abnormality. [facility] [employer] Nate De La O MD - [...] Electronically Signed Date/Time: 03/19/2023 11:04 AM EST [facility] Radiology Study observation (narrative) [facility] XR Hand - left 3 ViewsOrdere d By: Nate De La O on 03-19-2023 [facility] Work Phone: Hepatic function 2000 panelo n 02-11-2023 Albumin [Mass/Vol] 4.1 g/dL 3.5 - 5.0 g/dL [facility] ALP [Catalytic activity/Vol] 86 U/L 38 - 126 U/L [facility] ALT [Catalytic activity/Vol] 129 U/L High 0 - 49 U/L [facility] AST [Catalytic activity/Vol] 90 U/L High 15 - 46 U/L [facility] Bilirubin [Mass/Vol] 1.0 mg/dL 0.2 - 1 .3 mg/dL [facility] Bilirubin.conjugated [Mass/Vol] 0.0 mg/dL 0.0 - 0.3 mg/dL [facility] [facility] Interpretation and review of laboratory results Abnormal [facility] [employer] Protein [Mass/Vol] 7.0 g/dL 6.3 - 8.2 g/dL [facility] Hepatic function 2000 panelo n 02-10-2023 Albumin [Mass/Vol] 4.4 g/dL 3.5 - 5.0 g/dL [facility] ALP [Catalytic activity/Vol] 98 U/L 38 - 126 U/L [facility] [employer] ALT [Catalytic activity/Vol] 153 U/L High 0 - 49 U/L [facility] AST [Catalytic activity/Vol] 121 U/L High 15 - 46 U/L [facility] Bilirubin [Mass/Vol] 1.2 mg/dL 0.2 - 1 .3 mg/dL [facility] Bilirubin.conjugated [Mass/Vol] 0.0 mg/dL 0.0 - 0.3 mg/dL [facility] Interpretation and review of laboratory results Abnormal [facility] Protein [Mass/Vol] 7.5 g/dL 6.3 - 8.2 g/dL [facility] CBC W Auto Differential pane l (Bld)Ordered By: Maite Fleming on 02-08-2023 Basophils (Bld) [#/Vol] 0.0 10*3/uL 0.0 - 0.2 10*3/uL [facility] Basophils/100 WBC (Bld) 1.0 % 0.0 - 2.0 % [facility] Eosinophils (Bld) [#/Vol] 0.0 10*3/uL 0.0 - 0.5 10*3/uL [facility] Eosinophils/100 WBC (Bld) 1.0 % 1.0 - 6.0 % [facility] Erythrocyte distribution width (RBC) [Ratio] 14.9 % High 11.5 - 14.5 % [facility] Hematocrit (Bld) [Volume fraction] 49.0 % 40.0 - 52.0 % [facility] Hemoglobin (Bld) [Mass/Vol] 16.8 g/dL 13.0 - 18.0 g/dL [facility] Interpretation and review of laboratory results Abnormal [facility] Lymphocytes (Bld) [#/Vol] 1.3 10*3/uL 1.0 - 4.3 10*3/uL [facility] Lymphocytes/100 WBC (Bld) 34.2 % 20.0 - 40.0 % [facility] MCH (RBC) [Entitic mass] 33.7 pg 26. 0 - 34.0 pg [facility] MCHC (RBC) [Mass/Vol] 34.4 % 32.0 - 36.0 % [facility] MCV (RBC) [Entitic vol] 98.1 fL High 80.0 - 98.0 fL [facility] Monocytes (Bld) [#/Vol] 0.6 10*3/uL 0.0 - 0.8 10*3/uL [facility] Monocytes/100 WBC (Bld) 15.6 % High 2.0 - 10.0 % [facility] Neutrophils (Bld) [#/Vol] 1.8 10*3/uL 1.8 - 7.0 10*3/uL [facility] Neutrophils/100 WBC (Bld) 48.2 % 40.0 - 80.0 % [facility] Nucleated RBC/100 WBC (Bld) [Ratio] 0.0 % [facility] Platelet mean volume (Bld) [Entitic vol] 7.7 fL 7.4 - 12.4 fL [facility] Platelets (Bld) [#/Vol] 138 10*3/uL Low 140 - 440 10*3/uL [facility] RBC (Bld) [#/Vol] 4.99 10*6/uL 4.40 - 5.9 0 10*6/uL [facility] WBC (Bld) [#/Vol] 3.7 10*3/uL 3.6 - 10.7 10*3/uL [facility] Comprehensive metabolic 1998 panelon 02-08-2023 Albumin [Mass/Vol] 4.4 g/dL 3.5 - 5.0 g/dL [facility] ALP [Catalytic activity/Vol] 107 U/L 38 - 126 U/L [facility] ALT [Catalytic activity/Vol] 194 U/L High 0 - 49 U/L [facility] Anion gap [Moles/Vol] 14 mmol/L High 3 - 13 mmol/L [facility] AST [Catalytic activity/Vol] 207 U/L High 15 - 46 U/L [facility] Bilirubin [Mass/Vol] 0.8 mg/dL 0.2 - 1 .3 mg/dL [facility] Calcium [Mass/Vol] 8.4 mg/dL 8.4 - 10. 4 mg/dL [facility] Chloride [Moles/Vol] 92 mmol/L Low 98 - 10 7 mmol/L [facility] CO2 [Moles/Vol] 26 mmol/L 22 - 30 mmol/L [facility] Creatinine [Mass/Vol] 0.65 mg/dL Low 0.66 - 1.25 mg/dL [facility] GFR/1.73 sq M.predicted MDRD (S/P/Bld) [Vol rate/Area] - PINF [facility] Comment on above: Calculation based on the Chronic Kidney Disease Epidemiology Collaboration (CKD-EPI) equation refit without adjustment for race Glucose [Mass/Vol] 113 mg/dL High 70 - 100 mg/dL [facility] Interpretation and review of laboratory results Abnormal [facility] Potassium [Moles/Vol] 4.4 mmol/L 3.5 - 5.1 mmol/L [facility] Protein [Mass/Vol] 7.9 g/dL 6.3 - 8.2 g/dL [facility] Sodium [Moles/Vol] 132 mmol/L Low 135 - 145 mmol/L [facility] Urea nitrogen [Mass/Vol] 7 mg/dL Low 9 - 20 mg/dL [facility] Chemistry specimen i s slightly hemolyzed, interpret results with caution. [facility] Ethanol (Bld) [Mass/Vol]Orde red By: Jyotsna Peralta on 02-08-2023 Ethanol [Mass/Vol] 0.448 g/dL Critically high 0.000 - 0.010 g/dL [facility] Interpretation and review of laboratory results Abnormal [facility] Laboratory - Drug toxicology Ordered By: Nanette Elias on 02-08-2023 Amphetamines Screen method >1000 ng/mL Ql (U) Negative [facility] Barbiturates Screen method >200 ng/mL Ql (U) Negative [facility] ealth Benzodiazepines Ql (U) Negative [facility] Methadone Screen Ql (U) Negative [facility] Opiates Screen Ql (U) Negative [facility] oxyCODONE Ql (U) Negative [facility] alth Phencyclidine Ql (U) Negative [facility] Laboratory - Microbiology an d Antimicrobial susceptibilityon 02-08-2023 FLUAV RNA NICOLAS+probe Ql (Resp) Not detected Not Detected [facility] FLUBV RNA NICOLAS+probe Ql (Resp) Not detected Not Detected [facility] RSV RNA NICOLAS+probe Ql (Resp) Not detected Not Detected [facility] SARS-CoV-2 (COVID-19) RNA NICOLAS+probe Ql (Resp) Not detected Not Detected [facility] SARS-CoV-2 (COVID-19) RNA NICOLAS+probe Ql (Unsp spec) Methodology: real-time, RT-PCR The SARS-CoV-2, Flu A/B, and RSV Combo assay is intended for in vitro diagnostic use under the FDA Emergency Use Authorization (EUA). This test has not been FDA cleared or approved. In compliance with this authorization, please visit www.fda.gov/media/9002 35/download or www.fda.gov/media/2808 36/download to access the applicable information sheets. [facility] No Panel InformationOrdered By: Nanette Elias on 02-08-2023 COCAINE METAB. SCREEN Negative [facility] The expected value f or all [...] is needed, request confirmation under separate order. [facility] SARS-CoV-2, Flu A/B, and RSV Comboon 02-08-2023 Interpretation and review of laboratory results Normal [facility] Urinalysis complete panel (U )on 02-08-2023 Bilirubin Ql (U) Negative Negative mg/dL [facility] Clarity (U) Clear Clear [facility] Color (U) Light Yellow Lt. Yellow [facility] Glucose Ql (U) Normal Normal (<70) mg/dL [facility] Hemoglobin Ql (U) Negative Negative mg/dL [facility] Interpretation and review of laboratory results Normal [facility] Ketones (U) [Mass/Vol] Negative Negat shiv mg/dL [facility] Leukocyte esterase Test strip Ql (U) Negative Negative Estefani/uL [facility] Nitrite Ql (U) Negative Negative [facility] th pH (U) 5.5 [pH] 5.0 - 8.0 pH [facility] Protein (U) [Mass/Vol] Negative Negat shiv mg/dL [facility] Specific gravity (U) [Rel density] 1.005 1.005 - 1.030 [facility] Urobilinogen (U) [Mass/Vol] Normal Normal (0-1) mg/dL [facility] Cobalamin (Vitamin B12) [Mas s/Vol]on 11-01-2022 Interpretation and review of laboratory results Normal [facility] HbA1c (Bld) [Mass fraction]o n 11-01-2022 Average glucose Estimated from glycated hemoglobin (Bld) [Mass/Vol] 103 mg/dL [facility] Hemoglobin A1con 11-01-2022 HbA1c (Bld) [Mass fraction] 5.2 % NINF - 5.7 % [facility] Comment on above: Normal less than 5.7 % Prediabetes 5.7% to 6.4% Diabetes 6.5% or higher --HgbA1C levels may not be accurate in patients who have renal disease, received recent blood transfusions, are anemic, or who have dyshemoglobinemia. Iron and Iron binding capaci ty panelon 11-01-2022 Interpretation and review of laboratory results Normal [facility] Iron [Mass/Vol] 104 ug/dL 49 - 181 ug/dL [facility] Vitamin B12on 11-01-2022 Cobalamin (Vitamin B12) [Mass/Vol] 289 pg/mL 239 - 931 pg/mL [facility] CBC W Auto Differential pane l (Bld)Ordered By: Rosalee Troy on 09-29-2022 Basophils (Bld) [#/Vol] 0.1 10*3/uL 0.0 - 0.2 10*3/uL [facility] Basophils/100 WBC (Bld) 0.8 % 0.0 - 2.0 % [facility] Eosinophils (Bld) [#/Vol] 0.5 10*3/uL 0.0 - 0.5 10*3/uL [facility] Eosinophils/100 WBC (Bld) 5.0 % 1.0 - 6.0 % [facility] Erythrocyte distribution width (RBC) [Ratio] 12.1 % 11.5 - 14.5 % [facility] Hematocrit (Bld) [Volume fraction] 41.5 % 40.0 - 52.0 % [facility] Hemoglobin (Bld) [Mass/Vol] 14.2 g/dL 13.0 - 18.0 g/dL [facility] Immature granulocytes (Bld) [#/Vol] 0.0 10*3/uL NINF - 0.0 10*3/uL [facility] Immature granulocytes/100 WBC (Bld) 0.3 % High NINF - 0.0 % [facility] Interpretation and review of laboratory results Abnormal [facility] Lymphocytes (Bld) [#/Vol] 1.9 10*3/uL 1.0 - 4.3 10*3/uL [facility] Lymphocytes/100 WBC (Bld) 21.6 % 20.0 - 40.0 % [facility] MCH (RBC) [Entitic mass] 33.7 pg 26. 0 - 34.0 pg [facility] MCHC (RBC) [Mass/Vol] 34.2 % 32.0 - 36.0 % [facility] MCV (RBC) [Entitic vol] 98.6 fL High 80.0 - 98.0 fL [facility] Monocytes (Bld) [#/Vol] 0.8 10*3/uL 0.0 - 0.8 10*3/uL [facility] Monocytes/100 WBC (Bld) 9.4 % 2.0 - 10.0 % [facility] Neutrophils (Bld) [#/Vol] 5.6 10*3/uL 1.8 - 7.0 10*3/uL [facility] Neutrophils/100 WBC (Bld) 62.9 % 40.0 - 80.0 % [facility] Platelet mean volume (Bld) [Entitic vol] 8.1 fL 7.4 - 12.4 fL [facility] Comment on above: MPV is a calculated measurement using platelet volume ratio Platelets (Bld) [#/Vol] 494 10*3/uL High 140 - 440 10*3/uL [facility] RBC (Bld) [#/Vol] 4.21 10*6/uL Low 4.40 - 5.9 0 10*6/uL [facility] WBC (Bld) [#/Vol] 9.0 10*3/uL 3.6 - 10.7 10*3/uL [facility] Comprehensive metabolic 1998 panelon 09-29-2022 Albumin [Mass/Vol] 3.8 g/dL 3.5 - 5.0 g/dL [facility] ALP [Catalytic activity/Vol] 83 U/L 38 - 126 U/L [facility] ALT [Catalytic activity/Vol] 38 U/L 0 - 49 U/L [facility] Anion gap [Moles/Vol] 4 mmol/L 3 - 13 mmol/L [facility] AST [Catalytic activity/Vol] 33 U/L 15 - 46 U/L [facility] Bilirubin [Mass/Vol] 0.3 mg/dL 0.2 - 1 .3 mg/dL [facility] Calcium [Mass/Vol] 8.5 mg/dL 8.4 - 10. 4 mg/dL [facility] Chloride [Moles/Vol] 101 mmol/L 98 - 10 7 mmol/L [facility] CO2 [Moles/Vol] 32 mmol/L High 22 - 30 mmol/L [facility] Creatinine [Mass/Vol] 0.76 mg/dL 0.66 - 1.25 mg/dL [facility] GFR/1.73 sq M.predicted MDRD (S/P/Bld) [Vol rate/Area] - PINF [facility] Comment on above: Calculation based on the Chronic Kidney Disease Epidemiology Collaboration (CKD-EPI) equation refit without adjustment for race Glucose [Mass/Vol] 112 mg/dL High 70 - 100 mg/dL [facility] Interpretation and review of laboratory results Abnormal [facility] Potassium [Moles/Vol] 3.7 mmol/L 3.5 - 5.1 mmol/L [facility] Protein [Mass/Vol] 6.8 g/dL 6.3 - 8.2 g/dL [facility] Sodium [Moles/Vol] 137 mmol/L 135 - 145 mmol/L [facility] Urea nitrogen [Mass/Vol] 6 mg/dL Low 9 - 20 mg/dL [facility] Hepatitis 1996 panel (S)on 09-29-2022 HAV IgM IA Ql Not detected Not Detected [facility] HBV core IgM IA Ql Not detected Not Detected [facility] HBV surface Ag IA Ql Not detected Not Detected [facility] HCV Ab IA Ql Not detected Not Detected [facility] Comment on above: Patients with DETECT ED Hepatitis C Ab results should have a new specimen submitted for supplemental testing with a Hepatitis C Quantitative RNA assay (viral load), if clinically indicated. Interpretation and review of laboratory results Normal [facility] No Panel InformationOrdered By: Katrina Spencer on 09-12-2022 P [place] 68 degrees [facility] [employer] Work Phone: RI Interval 156 ms [facility] Work Phone: QRS [place] 83 degrees [facility] Work Phone: QRSD Interval 85 ms [facility] Work Phone: QT Interval 339 ms [employer] Work Phone: QTC Interval 448 ms [employer] Work Phone: T Wave [place] 62 degrees [employer] Work Phone: [employer] Work Phone: No Panel Informationon 09-12 Sinus tachycardia Probable left atrial enlargement Borderline T abnormalities, anterior leads Electronically Signed On 09-12-2022 13:06:59 EDT by Katrina Montero MD - 09/12/2022 IMPRESSION: Sinus tachycardia Probable left atrial enlargement Borderline T abnormalities, anterior leads Electronically Signed On 09-12-2022 13:06:59 EDT by Katrina Spencer [facility] [employer] Vital signsOrdered By: Brianna Spencer on 09-12-2022 Heart rate 105 /min bpm [employer] Work Phone: CBC W Auto Differential pane l (Bld)Ordered By: Magali Hawkins on 09-10-2022 Basophils (Bld) [#/Vol] 0.1 10*3/uL 0.0 - 0.2 10*3/uL [employer] Basophils/100 WBC (Bld) 1.4 % 0.0 - 2.0 % [facility] [employer] Eosinophils (Bld) [#/Vol] 0.0 10*3/uL 0.0 - 0.5 10*3/uL [employer] Eosinophils/100 WBC (Bld) 0.6 % Low 1.0 - 6.0 % [facility] [employer] Erythrocyte distribution width (RBC) [Ratio] 13.8 % 11.5 - 14.5 % [employer] Hematocrit (Bld) [Volume fraction] 49.7 % 40.0 - 52.0 % [employer] Hemoglobin (Bld) [Mass/Vol] 16.6 g/dL 13.0 - 18.0 g/dL [facility] [employer] Interpretation and review of laboratory results Abnormal [facility] [employer] Lymphocytes (Bld) [#/Vol] 1.2 10*3/uL 1.0 - 4.3 10*3/uL [employer] Lymphocytes/100 WBC (Bld) 23.3 % 20.0 - 40.0 % [facility] MCH (RBC) [Entitic mass] 33.4 pg 26. 0 - 34.0 pg [facility] MCHC (RBC) [Mass/Vol] 33.5 % 32.0 - 36.0 % [facility] MCV (RBC) [Entitic vol] 100.0 fL High 80.0 - 98.0 fL [facility] Monocytes (Bld) [#/Vol] 0.7 10*3/uL 0.0 - 0.8 10*3/uL [facility] Monocytes/100 WBC (Bld) 14.2 % High 2.0 - 10.0 % [facility] Neutrophils (Bld) [#/Vol] 3.2 10*3/uL 1.8 - 7.0 10*3/uL [facility] Neutrophils/100 WBC (Bld) 60.5 % 40.0 - 80.0 % [facility] Nucleated RBC/100 WBC (Bld) [Ratio] 0.3 % [facility] Platelet mean volume (Bld) [Entitic vol] 7.7 fL 7.4 - 12.4 fL [facility] Platelets (Bld) [#/Vol] 183 10*3/uL 140 - 440 10*3/uL [facility] RBC (Bld) [#/Vol] 4.97 10*6/uL 4.40 - 5.9 0 10*6/uL [facility] WBC (Bld) [#/Vol] 5.3 10*3/uL 3.6 - 10.7 10*3/uL [facility] CK [Catalytic activity/Vol]o n 09-10-2022 Interpretation and review of laboratory results Normal [facility] CT Abdomen WO contraston 1. No evidence of acute infectious or inflammatory process in the abdomen or pelvis. 2. The liver demonstrates generalized diminished attenuation as compared to the spleen, compatible with hepatic steatosis 3. Few scattered descending colon diverticula without evidence of acute diverticulitis Report Dictated on Electronically Signed By: Barry Lam Electronically Signed Date/Time: 09/10/2022 2:52 PM EDT [facility] Patient Name: MARIA DE JESUS HOGAN : [...] is identified. Free air or fluid: None. Mesenteric/retroperito connie: No adenopathy or inflammation. Aorta: Normal caliber [...] structures: Multilevel spondylosis. No suspicious osseous lesion. [facility] Barry Lam MD - 09/10/2022 [facility] Name: [facility] 1965 [id number] Exam Date/Time: 09/10/2022 14:30 Procedure: CT ABDOMEN [...] is identified. Free air or fluid: None. Mesenteric/retroperito connie: No adenopathy or inflammation. Aorta: Normal caliber [...] Electronically Signed Date/Time: 09/10/2022 2:52 PM EDT [facility] [employer] Radiology Study observation (narrative) [facility] CT Abdomen WO contrastOrdere d By: Barry Lam on 09-10-2022 [facility] [employer] Work Phone: Comprehensive metabolic 1998 panelon 09-10-2022 Albumin [Mass/Vol] 4.2 g/dL 3.5 - 5.0 g/dL [facility] [employer] ALP [Catalytic activity/Vol] 140 U/L High 38 - 126 U/L [facility] [employer] ALT [Catalytic activity/Vol] 123 U/L High 0 - 49 U/L [facility] [employer] Anion gap [Moles/Vol] 10 mmol/L 3 - 13 mmol/L [facility] [employer] AST [Catalytic activity/Vol] 156 U/L High 15 - 46 U/L [facility] [employer] Bilirubin [Mass/Vol] 0.6 mg/dL 0.2 - 1 .3 mg/dL [facility] [employer] Calcium [Mass/Vol] 8.0 mg/dL Low 8.4 - 10. 4 mg/dL [facility] [employer] Chloride [Moles/Vol] 98 mmol/L 98 - 10 7 mmol/L [facility] CO2 [Moles/Vol] 24 mmol/L 22 - 30 mmol/L [facility] Creatinine [Mass/Vol] 0.57 mg/dL Low 0.66 - 1.25 mg/dL [facility] GFR/1.73 sq M.predicted MDRD (S/P/Bld) [Vol rate/Area] - PINF [facility] Comment on above: Calculation based on the Chronic Kidney Disease Epidemiology Collaboration (CKD-EPI) equation refit without adjustment for race Glucose [Mass/Vol] 141 mg/dL High 70 - 100 mg/dL [facility] Potassium [Moles/Vol] 4.3 mmol/L 3.5 - 5.1 mmol/L [facility] Protein [Mass/Vol] 7.5 g/dL 6.3 - 8.2 g/dL [facility] Sodium [Moles/Vol] 132 mmol/L Low 135 - 145 mmol/L [facility] Urea nitrogen [Mass/Vol] 6 mg/dL Low 9 - 20 mg/dL [facility] Slightly Hemolyzed. Interpret ALKALINE PHOSPHATASE, AST, and POTASSIUM with caution. [facility] Ethanol (Bld) [Mass/Vol]Orde red By: Ruchi Mancera on 09-10-2022 Ethanol [Mass/Vol] 0.384 g/dL Critically high 0.000 - 0.010 g/dL [facility] Interpretation and review of laboratory results Abnormal [facility] Slightly Hemolyzed. Interpret with caution. NOTE: This result is for medical treatment only. Analysis performed using non-forensic procedures. [facility] Laboratory - Chemistry and C hemistry - challengeon 09-10-2022 CK [Catalytic activity/Vol] 107 U/L 30 - 170 U/L [facility] Lipase [Catalytic activity/Vol] 389 U/L High 23 - 300 U/L [facility] Laboratory - Drug toxicology Ordered By: Zulma Nolan on 09-10-2022 Amphetamines Screen method >1000 ng/mL Ql (U) Negative [facility] Barbiturates Screen method >200 ng/mL [facility] (U) [facility] Benzod[facility] Ql (U) Negative [facility] Methadone Screen Ql (U) Negative [facility] Opiates Screen Ql (U) Negative [facility] oxyCODONE Ql (U) Negative [facility] alth Phencyclidine Ql (U) Negative [facility] Laboratory - Drug toxicology on 09-10-2022 Acetaminophen [Mass/Vol] ug/mL Low 10. 0 - 30.0 ug/mL [facility] No Panel InformationOrdered By: Zulma Nolan on 09-10-2022 COCAINE METAB. SCREEN Negative [facility] The expected value f or all of [...] is needed, request confirmation under separate order. [facility] No Panel Informationon 09-10 Interpretation and review of laboratory results Abnormal [facility] SARS-CoV-2 (COVID-19) RNA pa lowell NICOLAS+probe (Resp)on 09-10-2022 Interpretation and review of laboratory results Normal [facility] SARS-CoV-2 (COVID-19) RNA NICOLAS+probe Ql (Resp) Not detected Not Detected [facility] SARS-CoV-2 (COVID-19) RNA NICOLAS+probe Ql (Unsp spec) Methodology: real-time, RT-PCR The SARS-CoV-2 assay is intended for in vitro diagnostic use under the FDA Emergency Use Authorization (EUA). This test has not been FDA cleared or approved. In compliance with this authorization, please visit www.fda.gov/media/6435 35/download or www.fda.gov/media/1425 36/download to access the applicable information sheets. [facility] CBC panel Auto (Bld)Ordered By: Papito Emerson on 07-23-2022 Erythrocyte distribution width (RBC) [Ratio] 14.9 % High 11.5 - 14.5 % [facility] Hematocrit (Bld) [Volume fraction] 46.9 % 40.0 - 52.0 % [facility] Hemoglobin (Bld) [Mass/Vol] 15.9 g/dL 13.0 - 18.0 g/dL [facility] Interpretation and review of laboratory results Abnormal [facility] MCH (RBC) [Entitic mass] 33.3 pg 26. 0 - 34.0 pg [facility] MCHC (RBC) [Mass/Vol] 34.0 % 32.0 - 36.0 % [facility] MCV (RBC) [Entitic vol] 98.1 fL High 80.0 - 98.0 fL [facility] Platelet mean volume (Bld) [Entitic vol] 6.9 fL Low 7.4 - 12.4 fL [facility] Platelets (Bld) [#/Vol] 198 10*3/uL 140 - 440 10*3/uL [facility] RBC (Bld) [#/Vol] 4.78 10*6/uL 4.40 - 5.9 0 10*6/uL [facility] WBC (Bld) [#/Vol] 5.8 10*3/uL 3.6 - 10.7 10*3/uL [facility] Comprehensive metabolic 1998 panelon 07-23-2022 Albumin [Mass/Vol] 4.2 g/dL 3.5 - 5.0 g/dL [facility] ALP [Catalytic activity/Vol] 126 U/L 38 - 126 U/L [facility] ALT [Catalytic activity/Vol] 36 U/L 0 - 49 U/L [facility] Anion gap [Moles/Vol] 1 mmol/L Low 3 - 13 mmol/L [facility] AST [Catalytic activity/Vol] 40 U/L 15 - 46 U/L [facility] Bilirubin [Mass/Vol] 1.0 mg/dL 0.2 - 1 .3 mg/dL [facility] Calcium [Mass/Vol] 8.6 mg/dL 8.4 - 10. 4 mg/dL [facility] Chloride [Moles/Vol] 95 mmol/L Low 98 - 10 7 mmol/L [facility] CO2 [Moles/Vol] 36 mmol/L High 22 - 30 mmol/L [facility] Creatinine [Mass/Vol] 0.77 mg/dL 0.66 - 1.25 mg/dL [facility] GFR/1.73 sq M.predicted MDRD (S/P/Bld) [Vol rate/Area] - PINF [facility] Comment on above: Calculation based on the Chronic Kidney Disease Epidemiology Collaboration (CKD-EPI) equation refit without adjustment for race Glucose [Mass/Vol] 98 mg/dL 70 - 100 mg/dL [facility] Interpretation and review of laboratory results Abnormal [facility] Potassium [Moles/Vol] 4.0 mmol/L 3.5 - 5.1 mmol/L [facility] Protein [Mass/Vol] 7.5 g/dL 6.3 - 8.2 g/dL [facility] Sodium [Moles/Vol] 132 mmol/L Low 135 - 145 mmol/L [facility] Urea nitrogen [Mass/Vol] 10 mg/dL 9 - 20 mg/dL [facility] CBC panel Auto (Bld)Ordered By: Inés Brewer on 07-22-2022 Erythrocyte distribution width (RBC) [Ratio] 15.5 % High 11.5 - 14.5 % [facility] Hematocrit (Bld) [Volume fraction] 47.1 % 40.0 - 52.0 % [facility] Hemoglobin (Bld) [Mass/Vol] 15.6 g/dL 13.0 - 18.0 g/dL [facility] Interpretation and review of laboratory results Abnormal [facility] MCH (RBC) [Entitic mass] 32.8 pg 26. 0 - 34.0 pg [facility] MCHC (RBC) [Mass/Vol] 33.2 % 32.0 - 36.0 % [facility] MCV (RBC) [Entitic vol] 98.7 fL High 80.0 - 98.0 fL [facility] Platelet mean volume (Bld) [Entitic vol] 6.8 fL Low 7.4 - 12.4 fL [facility] Platelets (Bld) [#/Vol] 201 10*3/uL 140 - 440 10*3/uL [facility] RBC (Bld) [#/Vol] 4.77 10*6/uL 4.40 - 5.9 0 10*6/uL [facility] WBC (Bld) [#/Vol] 5.7 10*3/uL 3.6 - 10.7 10*3/uL [facility] Comprehensive metabolic 1998 panelon 07-22-2022 Albumin [Mass/Vol] 4.1 g/dL 3.5 - 5.0 g/dL [facility] ALP [Catalytic activity/Vol] 122 U/L 38 - 126 U/L [facility] ALT [Catalytic activity/Vol] 43 U/L 0 - 49 U/L [facility] Anion gap [Moles/Vol] 7 mmol/L 3 - 13 mmol/L [facility] AST [Catalytic activity/Vol] 49 U/L High 15 - 46 U/L [facility] Bilirubin [Mass/Vol] 0.6 mg/dL 0.2 - 1 .3 mg/dL [facility] Calcium [Mass/Vol] 8.0 mg/dL Low 8.4 - 10. 4 mg/dL [facility] Chloride [Moles/Vol] 100 mmol/L 98 - 10 7 mmol/L [facility] CO2 [Moles/Vol] 26 mmol/L 22 - 30 mmol/L [facility] Creatinine [Mass/Vol] 0.85 mg/dL 0.66 - 1.25 mg/dL [facility] GFR/1.73 sq M.predicted MDRD (S/P/Bld) [Vol rate/Area] - PINF [facility] Comment on above: Calculation based on the Chronic Kidney Disease Epidemiology Collaboration (CKD-EPI) equation refit without adjustment for race Glucose [Mass/Vol] 97 mg/dL 70 - 100 mg/dL [facility] Interpretation and review of laboratory results Abnormal [facility] Potassium [Moles/Vol] 4.0 mmol/L 3.5 - 5.1 mmol/L [facility] Protein [Mass/Vol] 7.3 g/dL 6.3 - 8.2 g/dL [facility] Sodium [Moles/Vol] 133 mmol/L Low 135 - 145 mmol/L [facility] Urea nitrogen [Mass/Vol] 11 mg/dL 9 - 20 mg/dL [facility] Blood type and Crossmatch pa lowell (Bld)on 07-21-2022 ABO group Nom (Bld) A [facility] Blood group antibody screen GEL Ql Negative [facility] D Ag Ql (RBC) Positive [facility] CBC W Auto Differential pane l (Bld)Ordered By: Jacqueline Smith on 07-21-2022 Basophils (Bld) [#/Vol] 0.1 10*3/uL 0.0 - 0.2 10*3/uL [facility] Basophils/100 WBC (Bld) 1.2 % 0.0 - 2.0 % [facility] Eosinophils (Bld) [#/Vol] 0.1 10*3/uL 0.0 - 0.5 10*3/uL [facility] Eosinophils/100 WBC (Bld) 1.2 % 1.0 - 6.0 % [facility] Erythrocyte distribution width (RBC) [Ratio] 15.4 % High 11.5 - 14.5 % [facility] Hematocrit (Bld) [Volume fraction] 46.9 % 40.0 - 52.0 % [facility] Hemoglobin (Bld) [Mass/Vol] 16.0 g/dL 13.0 - 18.0 g/dL [facility] Interpretation and review of laboratory results Abnormal [facility] Lymphocytes (Bld) [#/Vol] 1.9 10*3/uL 1.0 - 4.3 10*3/uL [facility] Lymphocytes/100 WBC (Bld) 31.1 % 20.0 - 40.0 % [facility] MCH (RBC) [Entitic mass] 33.5 pg 26. 0 - 34.0 pg [facility] MCHC (RBC) [Mass/Vol] 34.1 % 32.0 - 36.0 % [facility] MCV (RBC) [Entitic vol] 98.4 fL High 80.0 - 98.0 fL [facility] Monocytes (Bld) [#/Vol] 0.6 10*3/uL 0.0 - 0.8 10*3/uL [facility] Monocytes/100 WBC (Bld) 9.8 % 2.0 - 10.0 % [facility] Neutrophils (Bld) [#/Vol] 3.5 10*3/uL 1.8 - 7.0 10*3/uL [facility] Neutrophils/100 WBC (Bld) 56.7 % 40.0 - 80.0 % [facility] Nucleated RBC/100 WBC (Bld) [Ratio] 0.1 % [facility] Platelet mean volume (Bld) [Entitic vol] 6.8 fL Low 7.4 - 12.4 fL [facility] Platelets (Bld) [#/Vol] 211 10*3/uL 140 - 440 10*3/uL [facility] RBC (Bld) [#/Vol] 4.77 10*6/uL 4.40 - 5.9 0 10*6/uL [facility] WBC (Bld) [#/Vol] 6.2 10*3/uL 3.6 - 10.7 10*3/uL [facility] CT Abdomen and Pelvis W cont sabrina BHARDWAJon 07-21-2022 No acute abdominal o r pelvic findings to explain symptoms. Hepatic steatosis. Sigmoid diverticulosis. Report Dictated on Workstation: [id number] Electronically Signed By: Joon Foley Electronically Signed Date/Time: 07/21/2022 6:02 PM EDT [facility] Patient Name: MARIA DE JESUS HOGAN : [...] is identified. Free air or fluid: None. Mesenteric/retroperito connie: No adenopathy or inflammation. Aorta: Atherosclerotic calcific [...] lymphadenopathy: None. Osseous structures: Lumbar degenerative spondylosis. [facility] [employer] Joon Foley DO - 07/21/2022 Patient Name: MARIA DE JESUS HOGAN : 1965 [facility]#: [id number] Exam Date/Time: 07/21/2022 17:53 Procedure: CT ABDOMEN [...] is identified. Free air or fluid: None. Mesenteric/retroperito connie: No adenopathy or inflammation. Aorta: Atherosclerotic calcific [...] Electronically Signed Date/Time: 07/21/2022 6:02 PM EDT [facility] [employer] Radiology Study observation (narrative) [facility] alth CT Abdomen and Pelvis W cont rast IVOrdered By: Joon Foley on 07-21-2022 [employer] Work Phone: Cobalamin (Vitamin B12) [Mas s/Vol]on 07-21-2022 Interpretation and review of laboratory results Normal [facility] Comprehensive metabolic 1998 panelon 07-21-2022 Albumin [Mass/Vol] 4.2 g/dL 3.5 - 5.0 g/dL [facility] ALP [Catalytic activity/Vol] 124 U/L 38 - 126 U/L [facility] ALT [Catalytic activity/Vol] 43 U/L 0 - 49 U/L [facility] Anion gap [Moles/Vol] 11 mmol/L 3 - 13 mmol/L [facility] AST [Catalytic activity/Vol] 56 U/L High 15 - 46 U/L [facility] Bilirubin [Mass/Vol] 0.5 mg/dL 0.2 - 1 .3 mg/dL [facility] Calcium [Mass/Vol] 8.5 mg/dL 8.4 - 10. 4 mg/dL [facility] Chloride [Moles/Vol] 101 mmol/L 98 - 10 7 mmol/L [facility] CO2 [Moles/Vol] 24 mmol/L 22 - 30 mmol/L [facility] Creatinine [Mass/Vol] 0.85 mg/dL 0.66 - 1.25 mg/dL [facility] GFR/1.73 sq M.predicted MDRD (S/P/Bld) [Vol rate/Area] - PINF [facility] Comment on above: Calculation based on the Chronic Kidney Disease Epidemiology Collaboration (CKD-EPI) equation refit without adjustment for race Glucose [Mass/Vol] 98 mg/dL 70 - 100 mg/dL [facility] Interpretation and review of laboratory results Abnormal [facility] Potassium [Moles/Vol] 4.1 mmol/L 3.5 - 5.1 mmol/L [facility] Protein [Mass/Vol] 7.4 g/dL 6.3 - 8.2 g/dL [facility] Sodium [Moles/Vol] 136 mmol/L 135 - 145 mmol/L [facility] Urea nitrogen [Mass/Vol] 8 mg/dL Low 9 - 20 mg/dL [facility] Drug screen panel, emergency on 07-21-2022 Amphetamines Screen method >1000 ng/mL Ql (U) Negative [facility] Barbiturates Screen method >200 ng/mL [facility]l (U) [facility] Benzod[facility]ines Ql (U) Negative [facility] COCAINE METAB. SCREEN Negative [facility] Methadone Screen Ql (U) Negative [facility] Opiates Screen Ql (U) Negative [facility] oxyCODONE Ql (U) Negative [facility] Phen[facility] (U) Negative [facility] The expected value f or all [...] is needed, request confirmation under separate order. [facility] ECG 12 leadon 07-21-2022 Heart rate 95 /min bpm [facility] P [place] 50 degrees [facility] RI Interval 188 ms [facility] QRS [place] 44 degrees [facility] QRSD [facility]val [facility]val 372 ms [facility] QTC Interval 468 ms [facility] T Wave [place] 50 degrees [facility] SINUS RHYTHM PROBABLE LEFT ATRIAL ABNORMALITY RSR' IN V1 OR V2, RIGHT VCD OR RVH Compared to ECG 06/06/2021 16:40:22 Electronically Signed On 07-21-2022 21:01:15 EDT by Arsenio Titus DO - 07/21/2022 IMPRESSION: SINUS RHYTHM PROBABLE LEFT ATRIAL ABNORMALITY RSR' IN V1 OR V2, RIGHT VCD OR RVH Compared to ECG 06/06/2021 16:40:22 Electronically Signed On 07-21-2022 21:01:15 EDT by Arsenio Villalta [facility] Ethanol (Bld) [Mass/Vol]on 0 07-21-2022 Ethanol [Mass/Vol] 0.323 g/dL Critically high 0.000 - 0.010 g/dL [facility] Interpretation and review of laboratory results Abnormal [facility] Lipaseon 07-21-2022 Lipase [Catalytic activity/Vol] 209 U/L 23 - 300 U/L [facility] Lipase [Catalytic activity/V ol]on 07-21-2022 Interpretation and review of laboratory results Normal [facility] Magnesiumon 07-21-2022 Magnesium [Mass/Vol] 2.1 mg/dL 1.6 - 2 .3 mg/dL [facility] Magnesium [Mass/Vol]on 07-21 Interpretation and review of laboratory results Normal [facility] No Panel Informationon 07-21 [facility] PT Coag (Bld) [Time]on 07-21 INR Coag (PPP) [Relative time] 0.9 {INR} 0.9 - 1.1 [facility] Comment on above: Recommended Anticoag ulant [...] Interpretation and review of laboratory results Normal [facility] Phosphate [Moles/Vol]on 07-01 Interpretation and review of laboratory results Abnormal [facility] Phosphate [Mass/Vol] 4.6 mg/dL High 2.5 - 4 .5 mg/dL [facility] Protime-INRon 07-21-2022 PT Coag (Bld) [Time] 10.3 s 9.0 - 1 2.0 s [facility] SARS-CoV-2, Flu A/B, and RSV Comboon 07-21-2022 FLUAV RNA NICOLAS+probe Ql (Resp) Not detected Not Detected [facility] FLUBV RNA NICOLAS+probe Ql (Resp) Not detected Not Detected [facility] Interpretation and review of laboratory results Normal [facility] RSV RNA NICOLAS+probe Ql (Resp) Not detected Not Detected [facility] SARS-CoV-2 (COVID-19) RNA NICOLAS+probe Ql (Resp) Not detected Not Detected [facility] SARS-CoV-2 (COVID-19) RNA NICOLAS+probe Ql (Unsp spec) Methodology: real-time, RT-PCR The SARS-CoV-2, Flu A/B, and RSV Combo assay is intended for in vitro diagnostic use under the FDA Emergency Use Authorization (EUA). This test has not been FDA cleared or approved. In compliance with this authorization, please visit www.fda.gov/media/6337 35/download or www.[employer].gov/media/4017 36/download to access the applicable information sheets. [facility] TSHon 07-21-2022 TSH Qn 2.092 m[IU]/L [facility] h TSH Qnon 07-21-2022 Interpretation and review of laboratory results Normal [facility] Troponin Ion 07-21-2022 Troponin I.cardiac [Mass/Vol] ng/mL 0.000 - 0.034 ng/mL [facility] Troponin I.cardiac [Mass/Vol ]on 07-21-2022 Interpretation and review of laboratory results Normal [facility] Patients with high levels of Biotin oral intake (ie >5 mg/day) may have falsely decreased Troponin levels. [facility] Urinalysis complete panel (U )on 07-21-2022 Bilirubin Ql (U) Negative Negative mg/dL [facility] Clarity (U) Clear Clear [facility] Color (U) Colorless Lt. Yellow [facility] Glucose Ql (U) Normal Normal (<70) mg/dL [facility] Hemoglobin Ql (U) Negative Negative mg/dL [facility] Interpretation and review of laboratory results Abnormal [facility] Ketones (U) [Mass/Vol] Negative Negat shiv mg/dL [facility] Leukocyte esterase Test strip Ql (U) Negative Negative Estefani/uL [facility] Nitrite Ql (U) Negative Negative [facility] th pH (U) 5.0 [pH] 5.0 - 8.0 pH [facility] Protein (U) [Mass/Vol] Negative Negat shiv mg/dL [facility] Specific gravity (U) [Rel density] 1.003 Low 1.005 - 1.030 [facility] Urobilinogen (U) [Mass/Vol] Normal Normal (0-1) mg/dL [facility] Vitamin B12on 07-21-2022 Cobalamin (Vitamin B12) [Mass/Vol] 264 pg/mL 239 - 931 pg/mL [facility] XR Lumbar spine 4 Viewson No acute osseous abnormality of the lumbar spine. Moderate facet arthrosis of the lower lumbar spine. Report Dictated on Electronically Signed By: Maria De Jesus Marcelo Electronically Signed Date/Time: 07/10/2022 3:34 PM EDT [facility] Patient Name: MARIA DE JESUS HOGAN : [...] views. Atherosclerotic calcifications of the abdominal aorta. [facility] Ivett Marcelo MD - 07/10/2022 Patient [...] Electronically Signed Date/Time: 07/10/2022 3:34 PM EDT [employer] XR Lumbar spine 4 ViewsOrder ed By: Ivett Marcelo on 07-10-2022 [employer] Work Phone: CBC W Auto Differential pane l (Bld)Ordered By: Jinny Phelps on 07-09-2022 Basophils (Bld) [#/Vol] 0.1 10*3/uL 0.0 - 0.2 10*3/uL [employer] Basophils/100 WBC (Bld) 1.1 % 0.0 - 2.0 % [facility] [employer] Eosinophils (Bld) [#/Vol] 0.1 10*3/uL 0.0 - 0.5 10*3/uL [facility] Eosinophils/100 WBC (Bld) 1.9 % 1.0 - 6.0 % [facility] [employer] Erythrocyte distribution width (RBC) [Ratio] 14.6 % High 11.5 - 14.5 % [facility] [employer] Hematocrit (Bld) [Volume fraction] 47.4 % 40.0 - 52.0 % [facility] [employer] Hemoglobin (Bld) [Mass/Vol] 16.6 g/dL 13.0 - 18.0 g/dL [facility] [employer] Immature granulocytes (Bld) [#/Vol] 0.0 10*3/uL NINF - 0.0 10*3/uL [facility] [employer] Immature granulocytes/100 WBC (Bld) 0.3 % High NINF - 0.0 % [facility] [employer] Interpretation and review of laboratory results Abnormal [facility] [employer] Lymphocytes (Bld) [#/Vol] 2.3 10*3/uL 1.0 - 4.3 10*3/uL [facility] [employer] Lymphocytes/100 WBC (Bld) 36.3 % 20.0 - 40.0 % [facility] [employer] MCH (RBC) [Entitic mass] 33.3 pg 26. 0 - 34.0 pg [facility] [employer] MCHC (RBC) [Mass/Vol] 35.0 % 32.0 - 36.0 % [facility] [employer] MCV (RBC) [Entitic vol] 95.0 fL 80.0 - 98.0 fL [facility] Monocytes (Bld) [#/Vol] 0.9 10*3/uL High 0.0 - 0.8 10*3/uL [facility] Monocytes/100 WBC (Bld) 13.9 % High 2.0 - 10.0 % [facility] Neutrophils (Bld) [#/Vol] 2.9 10*3/uL 1.8 - 7.0 10*3/uL [facility] Neutrophils/100 WBC (Bld) 46.5 % 40.0 - 80.0 % [facility] Platelet mean volume (Bld) [Entitic vol] 8.2 fL 7.4 - 12.4 fL [facility] Comment on above: MPV is a calculated measurement using platelet volume ratio Platelets (Bld) [#/Vol] 254 10*3/uL 140 - 440 10*3/uL [facility] RBC (Bld) [#/Vol] 4.99 10*6/uL 4.40 - 5.9 0 10*6/uL [facility] WBC (Bld) [#/Vol] 6.3 10*3/uL 3.6 - 10.7 10*3/uL [facility] Comprehensive metabolic 1998 panelon 07-09-2022 Albumin [Mass/Vol] 4.5 g/dL 3.5 - 5.0 g/dL [facility] ALP [Catalytic activity/Vol] 103 U/L 38 - 126 U/L [facility] ALT [Catalytic activity/Vol] 43 U/L 0 - 49 U/L [facility] Anion gap [Moles/Vol] 6 mmol/L 3 - 13 mmol/L [facility] AST [Catalytic activity/Vol] 40 U/L 15 - 46 U/L [facility] Bilirubin [Mass/Vol] 0.4 mg/dL 0.2 - 1 .3 mg/dL [facility] Calcium [Mass/Vol] 8.8 mg/dL 8.4 - 10. 4 mg/dL [facility] Chloride [Moles/Vol] 97 mmol/L Low 98 - 10 7 mmol/L [facility] CO2 [Moles/Vol] 31 mmol/L High 22 - 30 mmol/L [facility] Creatinine [Mass/Vol] 0.74 mg/dL 0.66 - 1.25 mg/dL [facility] GFR/1.73 sq M.predicted MDRD (S/P/Bld) [Vol rate/Area] - PINF [facility] Comment on above: Calculation based on the Chronic Kidney Disease Epidemiology Collaboration (CKD-EPI) equation refit without adjustment for race Glucose [Mass/Vol] 131 mg/dL High 70 - 100 mg/dL [facility] Potassium [Moles/Vol] 4.0 mmol/L 3.5 - 5.1 mmol/L [facility] Protein [Mass/Vol] 7.6 g/dL 6.3 - 8.2 g/dL [facility] Sodium [Moles/Vol] 134 mmol/L Low 135 - 145 mmol/L [facility] Urea nitrogen [Mass/Vol] 6 mg/dL Low 9 - 20 mg/dL [facility] Lipid 1996 panelon 3 Cholesterol [Mass/Vol] 242 mg/dL High NINF - 200 mg/dL [facility] Cholesterol in HDL [Mass/Vol] 70 mg/dL High 40 - 60 mg/dL [facility] Cholesterol in LDL [Mass/Vol] 147 mg/dL High 0 - <100 [facility] Cholesterol.total/Choles terol in HDL [Mass ratio] 3 {ratio} [facility] Comment on above: Ref Range: < 3 Low Risk for CHD 3-6 Mod Risk for CHD > 6 High Risk for CHD Triglyceride [Mass/Vol] 126 mg/dL NINF - 150 mg/dL [facility] No Panel Informationon 07-09 Interpretation and review of laboratory results Abnormal [facility] Radiology Study observation (narrative) [facility] PSA Screeningon 07-09-2022 Interpretation and review of laboratory results Normal [facility] Prostate specific Ag [Mass/Vol] 1.035 ng/mL NINF - 4.000 ng/mL [facility] Testing performed on the NJOY 5600 using an immunometric methodology. Results obtained by different methods should not be used interchangeably. [facility] XR Shoulder - left 2 Viewson 07-09-2022 Negative examination of the shoulder. Report Dictated on Electronically Signed By: Onesimo Trejo Electronically Signed Date/Time: 07/09/2022 3:01 PM [facility] EMERGENCY [facility]PARTMENT RADIOLOGY SYSTEM Patient Name: MARIA DE JESUS HOGAN : [...] abnormalities. The left lung apex is clear. [facility] Onesimo Trejo, - 07/09/2022 Patient Name: MARIA DE JESUS [...] Electronically Signed Date/Time: 07/09/2022 3:01 PM EDT [facility] XR Shoulder - left 2 ViewsOr dered By: Onesimo Trejo on 07-09-2022 [facility] Phenobarbitalon 10-28-2021 PHENobarbital [Mass/Vol] 17.4 ug/mL Normal 10.0-40.0 [facility] [employer] Comment on above: Performed By: #### P HNO3 #### [facility] [address] [place] [id number] Comp Metabolic Panelon 10-25 ALP [Catalytic activity/Vol] 105 U/L Normal 38-126 [facility] [employer] Comment on above: Performed By: #### A DDON #### [facility] [address] [place] [address] ALT [Catalytic activity/Vol] 76 U/L High 0-49 [facility] Comment on above: Result Comment: The ALT test is performed by an updated assay method. Please note that the reference intervals have been changed and are now sex specific. Performed By: #### A DDON #### [facility] [address] [place] [address] Anion gap [Moles/Vol] 10 mmol/L Normal 3-13 [facility] Comment on above: Performed By: #### A DDON #### [facility] [address] [place] [address] AST [Catalytic activity/Vol] 79 U/L High 15-46 [facility] Comment on above: Performed By: #### A DDON #### [facility] [address] [place] [address] Calcium [Mass/Vol] 8.8 mg/dL Normal 8.4-10.4 [facility] Comment on above: Performed By: #### A DDON #### [facility] [address] [place] [address] CO2 [Moles/Vol] 26 mmol/L Normal 22-30 [facility] Comment on above: Performed By: #### A DDON #### [facility] [address] [place] [address] Glucose [Mass/Vol] 89 mg/dL Normal 70-100 [facility] Comment on above: Performed By: #### A DDON #### [facility] [address] [place] [address] Protein [Mass/Vol] 7.2 g/dL Normal 6.3-8.2 [facility] Comment on above: Performed By: #### A DDON #### [facility] [address] [place] [address] Urea nitrogen [Mass/Vol] 2 mg/dL Low 7-17 [facility] Comment on above: Performed By: #### A DDON #### [facility] [address] [place] [address] Bilirubin [Mass/Vol] 0.4 mg/dL Normal 0.2-1.3 [facility] Comment on above: Performed By: #### A DDON #### [facility] [address] [place] [address] Creatinine [Mass/Vol] 0.62 mg/dL Normal 0.52-1.25 [facility] Comment on above: Performed By: #### A DDON #### [facility] [address] [place] [address] eGFR OTHER > 90.0 Normal >60 [facility] Comment on above: [...] secretion. Performed By: #### A DDON #### [facility] [address] [place] [address] GFR/1.73 sq M.predicted among blacks MDRD (S/P/Bld) [Vol rate/Area] mL/min/{1.73_m2} Normal >60 [facility] Comment on above: Performed By: #### A DDON #### [facility] [address] [place] [address] Albumin [Mass/Vol] 4.3 g/dL Normal 3.5-5.0 [facility] Comment on above: Performed By: #### A DDON #### [facility] [address] [place] [address] Chloride [Moles/Vol] 103 mmol/L Normal 98-107 [facility] Comment on above: Performed By: #### A DDON #### [facility] [address] [place] [address] Potassium [Moles/Vol] 4.2 mmol/L Normal 3.5-5.1 [facility] Comment on above: Performed By: #### A DDON #### [facility] [address] [place] [address] Sodium [Moles/Vol] 139 mmol/L Normal 135-145 [facility] Comment on above: Performed By: #### A DDON #### [facility] [address] [place] [address] Complete Urinalysison 2021 Appearance (U) Clear Normal Clear [facility] Comment on above: Result Comment: . Performed By: #### A DDON #### [facility] [address] [place] [address] Bilirubin,Urine Negative Normal Negative [facility] Comment on above: Result Comment: . Performed By: #### A DDON #### [facility] [address] [place] [address] Color (U) Colorless Normal Lt. Yellow [facility] Comment on above: Result Comment: . Performed By: #### A DDON #### [facility] [address] [place] [address] Glucose Ql (U) Normal Normal Normal (<70) [facility] Comment on above: Result Comment: . Performed By: #### A DDON #### [facility] [address] [place] [address] Ketone,Urine Negative Normal Negative [facility] Comment on above: Result Comment: . Performed By: #### A DDON #### [facility] [address] [place] [address] Leukocytes,Urine Negative Normal Negative [facility] Comment on above: Result Comment: . Performed By: #### A DDON #### [facility] [address] [place] [address] Nitrites,Urine Negative Normal Negative [facility] Comment on above: Result Comment: . Performed By: #### A DDON #### [facility] [address] [place] [address] Occult Blood,Urine Negative Normal Negative [facility] Comment on above: Result Comment: . Performed By: #### A DDON #### [facility] [address] [place] [address] pH,Urine 5.5 Normal 5.0-8.0 [facility] Comment on above: Result Comment: . Performed By: #### A DDON #### [facility] [address] [place] [address] Specific [place],Urine < 1.005 Abnormal 1.005 - 1.030 [facility] Comment on above: Result Comment: . Performed By: #### A DDON #### [facility] [address] [place] [address] Total Protein,Urine Negative Normal Negative [facility] Comment on above: Result Comment: . Performed By: #### A DDON #### [facility] [address] [place] [address] Urobilinogen,Urine Normal Normal Normal (0-1) [facility] Comment on above: Result Comment: . Performed By: #### A DDON #### [facility] [address] [place] [address] Drugs of Abuseon 10-25-2021 Opiates, Ur Negative Normal [facility] Comment on above: Performed By: #### A DDON #### [facility] [address] [place] [address] Phencyclidine (PCP), Ur Negative Normal [facility] Comment on above: Result Comment: The [...] order. Performed By: #### A DDON #### [facility] [address] [place] [address] Methadone, Ur Negative Normal [facility] Comment on above: Performed By: #### A DDON #### [facility] [address] [place] [address] Benzodiazepines, Ur Negative Normal [facility] Comment on above: Performed By: #### A DDON #### [facility] [address] [place] [address] Cocaine, Ur Negative Normal [facility] Comment on above: Performed By: #### A DDON #### [facility] [address] [place] [address] Barbiturates, Ur Negative Normal [facility] Comment on above: Performed By: #### A DDON #### [facility] [address] [place] [address] Amphetamines, Ur Negative Normal [facility] Comment on above: Performed By: #### A DDON #### [facility] [address] [place] [address] Oxycodone/Oxymorphine,Ur Negative Normal [facility] Comment on above: Performed By: #### A DDON #### [address] [place] [address] ED Provider Noteon 2 ED Provider Note Emergency Department Encounter [facility] ED Patient: Maria De Jesus Hogan [...] with plan for inpatient detox admission at [place] pending bed availability, patient in agreement with [...] occasionally words are mis-transcribed.) Harjinder Saeed MD [employer] Harjinder Saeed MD 10/25/211918 [facility] ED Provider Note Janis HOYT ED eMERGENCY dEPARTMENT eNCOUnter Pt Name: Maria De Jesus Hogan Birthdate 1965 Date of evaluation: 10/25/2021 Provider: NEVA HAMILTON CHIEF COMPLAINT Chief Complaint Patient presents with Alcohol Intoxication HISTORY OF PRESENT ILLNESS (Location/Symptom, Timing/Onset,Context/S etting, Quality, Duration, Modifying Factors, Severity) Note limiting [...] rash. Neurological: Negative for dizziness and headaches. Psychiatric/Behavioral : Negative for suicidal ideas. PAST MEDICAL HISTORY Past Medical History: Diagnosis Date Alcohol abuse Alcohol dependence with withdrawal (HCC) 08/31/2019 Alcohol intoxication without use disorder, uncomplicated (HCC) 10/01/2019 Alcohol withdrawal, uncomplicated (HCC) 08/31/2019 Alcohol withdrawal, with unspecified complication (HCC) 10/02/2019 Alcohol withdrawal, with unspecified complication (HCC) 10/02/2019 Alcoholism (HCC) Anxiety Cerebral artery occlusion with cerebral infarction (HCC) Cerebrovascular disease Depression Hypertension Insomnia SURGICALHISTORY Past Surgical History: Procedure Laterality Date CYST REMOVAL face ENDOSCOPY, COLON, DIAGNOSTIC 06/10/2020 EGD/Dr Madison/TOMASAB UPPER GASTROINTESTINAL ENDOSCOPY 09/27/2021 normal WISDOM TOOTH [...] 9-10 per day Drug use: No SCREENINGS [place] Coma Scale Eye Opening: Spontaneous Best Verbal Response: Oriented Best Motor Response: Obeys commands M[place] Coma Scale Score: 15 PHYSICAL EXAM (5+ for level 4, 8+ for level 5) ED Triage Vitals BP Temp Temp Source Heart Rate Resp SpO2 Height Weight 10/25/21 1652 10/25/21 1652 10/25/21 1652 10/25/21 1652 10/25/21 1653 10/25/21 16510/25/21 16510/25/21 1653 (!) 139/95 98 ?F (36.7 ?C) Temporal 91 18 92 % 5' 10 (1.778 m) 185 lb (83.9 kg) Physical Exam Vitals and nursing note reviewed. Constitutio (more content not included)... Normal [facility] Ethanol Serum/Plasmaon 10-25 Ethanol-Serum/Plasma 0.393 g/dL Critically high 0.000-0.01 0 [facility] Comment on above: Result Comment: NOTE : This result is for medical treatment only. Analysis performed using non-forensic procedures. Performed By: #### A DDON #### [facility] [address] [place] [place] [address] Hemogram w/ Autodiffon 10-25 Abs Baso Cnt 0.0 10*3/uL Normal 0.0-0.2 [facility] Comment on above: Performed By: #### A DDON #### [facility] [address] [place] [address] Abs Neutrophile Cnt 2.2 10*3/uL Normal 1.8-7.0 [facility] Comment on above: Performed By: #### A DDON #### [facility] [address] [place] [address] Basophils/100 WBC (Bld) 1.0 % Normal 0.0-2.0 [facility] Comment on above: Performed By: #### A DDON #### [facility] [address] [place] [address] Eosinophils (Bld) [#/Vol] 0.1 10*3/uL Normal 0.0-0.5 [facility] Comment on above: Performed By: #### A DDON #### [facility] [address] [place] [address] Eosinophils/100 WBC (Bld) 1.9 % Normal 1.0-6.0 [facility] Comment on above: Performed By: #### A DDON #### [facility] [address] [place] [address] Erythrocyte distribution width (RBC) [Ratio] 14.0 % Normal 11.5-14.5 [facility] Comment on above: Performed By: #### A DDON #### [facility] [address] [place] [address] Granulocytes/100 WBC (Bld) 45.6 % Normal 40.0-80.0 [facility] Comment on above: Performed By: #### A DDON #### [facility] [address] [place] [address] Hematocrit (Bld) [Volume fraction] 46.1 % Normal 40.0-52.0 [facility] Comment on above: Performed By: #### A DDON #### [facility] [address] [place] [address] Hemoglobin (Bld) [Mass/Vol] 15.7 g/dL Normal 13.0-18.0 [facility] Comment on above: Performed By: #### A DDON #### [facility] [address] [place] [address] Lymphocytes (Bld) [#/Vol] 1.8 10*3/uL Normal 1.0-4.3 [facility] Comment on above: Performed By: #### A DDON #### [facility] [address] [place] [address] Lymphocytes/100 WBC (Bld) 38.9 % Normal 20.0-40.0 [facility] Comment on above: Performed By: #### A DDON #### [facility] [address] [place] [address] MCH (RBC) [Entitic mass] 33.8 pg Normal 26.0-34.0 [facility] Comment on above: Performed By: #### A DDON #### [facility] [address] [place] [address] MCHC 34.0 % Normal 32.0-36.0 [facility] Comment on above: Performed By: #### A DDON #### [facility] [address] [place] [address] MCV (RBC) [Entitic vol] 99.1 fL High 80.0-98.0 [facility] Comment on above: Performed By: #### A DDON #### [facility] [address] [place] [address] Monocytes (Bld) [#/Vol] 0.6 10*3/uL Normal 0.0-0.8 [facility] Comment on above: Performed By: #### A DDON #### [facility] [address] [place] [address] Monocytes/100 WBC (Bld) 12.6 % High 2.0-10.0 [facility] Comment on above: Performed By: #### A DDON #### [facility] [address] [place] [address] Platelet mean volume (Bld) [Entitic vol] 6.8 fL Low 7.4-12.4 [facility] Comment on above: Result Comment: MPV is a calculated measurement using platelet volume ratio. Performed By: #### A DDON #### [facility] [address] [place] [address] Platelets (Bld) [#/Vol] 170 10*3/uL Normal 140-440 [facility] Comment on above: Performed By: #### A DDON #### [facility] [address] [place] [address] RBC (Bld) [#/Vol] 4.65 10*6/uL Normal 4.40-5.90 [facility] Comment on above: Performed By: #### A DDON #### [facility] [address] [place] [address] WBC (Bld) [#/Vol] 4.7 10*3/uL Normal 3.6-10.7 [facility] Comment on above: Performed By: #### A DDON #### [facility] [address] [place] [address] SARS-CoV-2 Antigenon 022 SARS-CoV-2 Antigen Negative Normal Negative [facility] Comment on above: Result Comment: A negative result does not rule out the possibility of SARS-CoV-2 infection. NAAT-based methods should be considered for symptomatic patients presenting greater than seven days after onset of symptoms. Method: Lateral flow immunoassay. Fact sheets for healthcare providers and patients can be found at the following sites: https://www.[employer].gov/media/620787/download https://www.[employer].gov/media/413765/download Performed By: #### A DDON #### [facility] [address] [place] [address] CBC with Auto Differentialon 09-29-2021 Absolute Baso [...] [Mass/Vol] 14.5 g/dL 13.0 - 18.0 g/dL [facility] Interpretation and review of laboratory results Abnormal [facility] Lymphocytes (Bld) [#/Vol] 1.3 10*3/uL 1.0 - 4.3 10*3/uL [facility] Lymphocytes/100 WBC (Bld) 32.7 % 20.0 - 40.0 % [facility] MCH (RBC) [Entitic mass] 33.8 pg 26. 0 - 34.0 pg [facility] MCHC (RBC) [Mass/Vol] 34.2 % 32.0 - 36.0 % [facility] MCV (RBC) [Entitic vol] 98.8 fL High 80.0 - 98.0 fL [facility] Monocytes (Bld) [#/Vol] 0.4 10*3/uL 0.0 - 0.8 10*3/uL [facility] Monocytes/100 WBC (Bld) 11.1 % High 2.0 - 10.0 % [facility] Platelet distribution width (Bld) [Ratio] 14.3 % 11.5 - 14.5 % [facility] Platelet mean volume (Bld) [Entitic vol] 7.6 fL 7.4 - 12.4 fL [facility] Comment on above: MPV is a calculated measurement using platelet volume ratio. Platelets (Bld) [#/Vol] 139 10*3/uL Low 140 - 440 10*3/uL [facility] RBC (Bld) [#/Vol] 4.28 10*6/uL Low 4.40 - 5.9 0 10*6/uL [facility] WBC (Bld) [#/Vol] 4.0 10*3/uL 3.6 - 10.7 10*3/uL [facility] Test Performed by [facility], [address] [place] [address] [facility] Comp Metabolic Panelon 09-29 Anion gap [Moles/Vol] 5 mmol/L Normal 3-13 [facility] Comment on above: Performed By: #### H GHCT #### [facility] [address] [place] [address] Chloride [Moles/Vol] 96 mmol/L Low 98-107 [facility] Comment on above: Performed By: #### H GHCT #### [facility] [address] [place] [address] ALP [Catalytic activity/Vol] 95 U/L Normal 38-126 [facility] Comment on above: Performed By: #### H GHCT #### [facility] [address] [place] [address] ALT [Catalytic activity/Vol] 140 U/L High 0-49 [facility] Comment on above: Result Comment: The ALT test is performed by an updated assay method. Please note that the reference intervals have been changed and are now sex specific. Performed By: #### H GHCT #### [facility] [address] [place] [address] AST [Catalytic activity/Vol] 133 U/L High 15-46 [facility] Comment on above: Performed By: #### H GHCT #### [facility] [address] [place] [address] Bilirubin [Mass/Vol] 0.9 mg/dL Normal 0.2-1.3 [facility] Comment on above: Performed By: #### H GHCT #### [facility] [address] [place] [address] Calcium [Mass/Vol] 8.5 mg/dL Normal 8.4-10.4 [facility] Comment on above: Performed By: #### H GHCT #### [facility] [address] [place] [address] Glucose [Mass/Vol] 99 mg/dL Normal 70-100 [facility] Comment on above: Performed By: #### H GHCT #### [facility] [address] [place] [address] Protein [Mass/Vol] 6.8 g/dL Normal 6.3-8.2 [facility] Comment on above: Performed By: #### H GHCT #### [facility] [address] [place] [address] Urea nitrogen [Mass/Vol] mg/dL Low 7-17 [facility] Comment on above: Performed By: #### H GHCT #### [facility] [address] [place] [address] CO2 [Moles/Vol] 34 mmol/L High 22-30 [facility] Comment on above: Performed By: #### H GHCT #### [facility] [address] [place] [address] Creatinine [Mass/Vol] 0.61 mg/dL Normal 0.52-1.25 [facility] Comment on above: Performed By: #### H GHCT #### [facility] [address] [place] [address] eGFR OTHER > 90.0 Normal >60 [facility] Comment on above: [...] secretion. Performed By: #### H GHCT #### [facility] [address] [place] [address] GFR/1.73 sq M.predicted among blacks MDRD (S/P/Bld) [Vol rate/Area] mL/min/{1.73_m2} Normal >60 [facility] Comment on above: Performed By: #### H GHCT #### [facility] [address] [place] [address] Potassium [Moles/Vol] 4.0 mmol/L Normal 3.5-5.1 [facility] Comment on above: Performed By: #### H GHCT #### [facility] [address] [place] [address] Sodium [Moles/Vol] 133 mmol/L Low 135-145 [facility] Comment on above: Performed By: #### H GHCT #### [facility] [address] [place] [address] Albumin [Mass/Vol] 4.1 g/dL Normal 3.5-5.0 [facility] Comment on above: Performed By: #### H GHCT #### [facility] [address] [place] [address] Comprehensive Metabolic Pane arnulfo 09-29-2021 Albumin [Mass/Vol] 4.1 g/dL 3.5 - 5.0 g/dL [facility] ALP (Bld) [Catalytic activity/Vol] 95 U/L 38 - 126 U/L [facility] ALT [Catalytic activity/Vol] 140 U/L High 0 - 49 U/L [facility] Comment on above: The ALT test is [...] - 1.25 mg/dL [facility] EGFR IF NonAfrican [place] >90.0 >60 mL/min [facility] Comment on above: [...] mmol/L Low 135 - 145 mmol/L [facility] Urea nitrogen (BldV) [Mass/Vol] <2 Low 7 - 17 mg/dL [facility] Test Performed by [facility], [address], [place], [place] [id number] [place] [address] LAB [facility] Hemogram w/ Autodiffon 09-29 Abs Baso Cnt 0.0 10*3/uL Normal 0.0-0.2 [facility] Comment on above: Performed By: #### A DDON #### [facility] [address] [place] [address] Abs Neutrophile Cnt 2.1 10*3/uL Normal 1.8-7.0 [facility] Comment on above: Performed By: #### A DDON #### [facility] [address] [place] [address] Basophils/100 WBC (Bld) 1.0 % Normal 0.0-2.0 [facility] Comment on above: Performed By: #### A DDON #### [facility] [address] [place] [address] Eosinophils (Bld) [#/Vol] 0.1 10*3/uL Normal 0.0-0.5 [facility] Comment on above: Performed By: #### A DDON #### [facility] [address] [place] [address] Eosinophils/100 WBC (Bld) 2.6 % Normal 1.0-6.0 [facility] Comment on above: Performed By: #### A DDON #### [facility] [address] [place] [address] Erythrocyte distribution width (RBC) [Ratio] 14.3 % Normal 11.5-14.5 [facility] Comment on above: Performed By: #### A DDON #### [facility] [address] [place] [address] Granulocytes/100 WBC (Bld) 52.6 % Normal 40.0-80.0 [facility] Comment on above: Performed By: #### A DDON #### [facility] [address] [place] [address] Hematocrit (Bld) [Volume fraction] 42.3 % Normal 40.0-52.0 [facility] Comment on above: Performed By: #### A DDON #### [facility] [address] [place] [address] Hemoglobin (Bld) [Mass/Vol] 14.5 g/dL Normal 13.0-18.0 [facility] Comment on above: Performed By: #### A DDON #### [facility] [address] [place] [address] Lymphocytes (Bld) [#/Vol] 1.3 10*3/uL Normal 1.0-4.3 [facility] Comment on above: Performed By: #### A DDON #### [facility] [address] [place] [address] Lymphocytes/100 WBC (Bld) 32.7 % Normal 20.0-40.0 [facility] Comment on above: Performed By: #### A DDON #### [facility] [address] [place] [address] MCH (RBC) [Entitic mass] 33.8 pg Normal 26.0-34.0 [facility] Comment on above: Performed By: #### A DDON #### [facility] [address] [place] [address] MCHC 34.2 % Normal 32.0-36.0 [facility] Comment on above: Performed By: #### A DDON #### [facility] [address] [place] [address] MCV (RBC) [Entitic vol] 98.8 fL High 80.0-98.0 [facility] Comment on above: Performed By: #### A DDON #### [facility] [address] [place] [address] Monocytes (Bld) [#/Vol] 0.4 10*3/uL Normal 0.0-0.8 [facility] Comment on above: Performed By: #### A DDON #### [facility] [address] [place] [address] Monocytes/100 WBC (Bld) 11.1 % High 2.0-10.0 [facility] Comment on above: Performed By: #### A DDON #### [facility] [address] [place] [address] Platelet mean volume (Bld) [Entitic vol] 7.6 fL Normal 7.4-12.4 [facility] Comment on above: Result Comment: MPV is a calculated measurement using platelet volume ratio. Performed By: #### A DDON #### [facility] [address] [place] [address] Platelets (Bld) [#/Vol] 139 10*3/uL Low 140-440 [facility] Comment on above: Performed By: #### A DDON #### [facility] [address] [place] [address] RBC (Bld) [#/Vol] 4.28 10*6/uL Low 4.40-5.90 [facility] Comment on above: Performed By: #### A DDON #### [facility] [address] [place] [address] WBC (Bld) [#/Vol] 4.0 10*3/uL Normal 3.6-10.7 [facility] Comment on above: Performed By: #### A DDON #### [facility] [address] [place] [address] Hepatic Functionon Bilirubin.indirect [Mass/Vol] 0.0 mg/dL Normal 0.0-0.3 [facility] Comment on above: Performed By: #### A DDON #### [facility] [address] [place] [address] Hepatic Function Panelon Bilirubin.indirect [Mass/Vol] 0.0 mg/dL 0.0 - 0.3 mg/dL [facility] Test Performed by [facility], [address] [place], [place], [place] [address] [facility] Phenobarbitalon 09-29-2021 PHENobarbital [Mass/Vol] 15.1 ug/mL Normal 10.0-40.0 [facility] Comment on above: Performed By: #### H GHCT #### [facility] [address] [place] [address] Phenobarbital Levelon 2021 PHENobarbital [Mass/Vol] 15.1 ug/mL 10. 0 - 40.0 ug/mL [facility] Test Performed by [facility], [address] [place] [address] [facility] APTTon 09-27-2021 aPTT Coag (Bld) [Time] 26.3 s Normal 20.0-30.5 [facility] Comment on above: Result Comment: NOTE : The therapeutic time for Heparin anticoagulation, based on Xa activity inhibition, is an APTT of 46-80 seconds. Performed By: #### C OVAG #### [facility] [address] [place] [address] aPTT Coag (Bld) [Time] 26.3 s 20.0 - 30.5 s [facility] Comment on above: NOTE: The therapeuti c time for Heparin anticoagulation, based on Xa activity inhibition, is an APTT of 46-80 seconds. Test Performed by [facility], [address], [place], [place] [address] [facility] Ferritinon 09-27-2021 Ferritin [Mass/Vol] 669 ng/mL High 18-464 [facility] Comment on above: Performed By: #### A DDON #### [facility] [address] [place] [address] Ferritin [Mass/Vol] 669 ng/mL High 18 - 464 ng/mL [facility] Interpretation and review of laboratory results Abnormal [facility] Test Performed by [facility], [address], [place], [place] [address] [facility] HM ENDOSCOPY REPORTon 2021 Ordered by an unspecified provider. [facility] Hemoglobin AND Hematocriton 09-27-2021 Hematocrit (Bld) [Volume fraction] 43.0 % Normal 40.0-52.0 [facility] Comment on above: Performed By: #### H GHCT #### [facility] [address] [place] [address] Hemoglobin (Bld) [Mass/Vol] 14.7 g/dL Normal 13.0-18.0 [facility] Comment on above: Performed By: #### H GHCT #### [facility] [address] [place] [address] Hemoglobin and Hematocriton 09-27-2021 Hematocrit (Bld) [Volume fraction] 43.0 % 40.0 - 52.0 % [facility] Hemoglobin (Bld) [Mass/Vol] 14.7 g/dL 13.0 - 18.0 g/dL [facility] Test Performed by [facility], [address] [place] [address] [facility] Iron AND TIBCon 09-27-2021 Saturation 50 % Normal 15-50 [facility] Comment on above: Performed By: #### C OVAG #### [facility] [address] [place] [address] Total Iron Binding Cap. 191 ug/dL Low 261-497 [facility] Comment on above: Performed By: #### C OVAG #### [facility] [address] [place] [address] Iron, Total 95 ug/dL Normal 49-181 [facility] Comment on above: Performed By: #### C OVAG #### [facility] [address] [place] [address] Iron and TIBCon 09-27-2021 Interpretation and review of laboratory results Abnormal [facility] Iron [Mass/Vol] 95 ug/dL 49 - 181 ug/dL [facility] Sat 50 % 15 - 50 % [facility] TIBC 191 ug/dL Low 261 - 497 ug/dL [facility] Test Performed by [facility], [address] [place] [address] [facility] Lactic Acidon 09-27-2021 Lactate [Moles/Vol] 1.4 mmol/L Normal 0.7-2.0 [facility] Comment on above: Performed By: #### A DDON #### [facility] [address] [place] [place] [address] Lactate [Moles/Vol] 1.4 mmol/L 0.7 - 2. 0 mmol/L [facility] Test Performed by [facility] [address] [place] [address] [facility] CBC with Auto Differentialon 09-26-2021 [...] [Mass/Vol] 16.8 g/dL 13.0 - 18.0 g/dL [facility] Interpretation and review of laboratory results Abnormal [facility] Lymphocytes (Bld) [#/Vol] 1.5 10*3/uL 1.0 - 4.3 10*3/uL [facility] Lymphocytes/100 WBC (Bld) 34.8 % 20.0 - 40.0 % [facility] MCH (RBC) [Entitic mass] 33.9 pg 26. 0 - 34.0 pg [facility] MCHC (RBC) [Mass/Vol] [...] [#/Vol] 189 10*3/uL 140 - 440 10*3/uL [facility] RBC (Bld) [#/Vol] 4.95 10*6/uL 4.40 - 5.9 0 10*6/uL [facility] WBC (Bld) [#/Vol] 4.2 10*3/uL 3.6 - 10.7 10*3/uL [facility] CR Chest Portableon 09-27-19 22 CR Chest Portable Patient Name: MARIA DE JESUS HOGAN Diagnostic Radiology ACCESSION EXAM DATE/TIME PROCEDURE ORDERING PROVIDER [id number] 09/26/2021 19:48 EDT CR Chest Portable [id number] DIPESH MCKEON CPT code 58523 Reason For Exam (CR Chest Portable) epigastric [...] Transcribed Date and Time: 09/26/2021 7:59 Normal [facility] Comp Metabolic Panelon 09-26 ALP [Catalytic activity/Vol] 120 U/L Normal 38-126 [facility] Comment on above: Performed By: #### H GHCT #### [facility] [address] [place] [address] ALT [Catalytic activity/Vol] 156 U/L High 0-49 [facility] Comment on above: Result Comment: The ALT test is performed by an updated assay method. Please note that the reference intervals have been changed and are now sex specific. Performed By: #### H GHCT #### [facility] [address] [place] [address] Anion gap [Moles/Vol] 15 mmol/L High 3-13 [facility] Comment on above: Performed By: #### H GHCT #### [facility] [address] [place] [address] AST [Catalytic activity/Vol] 159 U/L High 15-46 [facility] Comment on above: Performed By: #### H GHCT #### [facility] [address] [place] [address] Bilirubin [Mass/Vol] 0.6 mg/dL Normal 0.2-1.3 [facility] Comment on above: Performed By: #### H GHCT #### [facility] [address] [place] [address] Calcium [Mass/Vol] 9.4 mg/dL Normal 8.4-10.4 [facility] Comment on above: Performed By: #### H GHCT #### [facility] [address] [place] [address] CO2 [Moles/Vol] 24 mmol/L Normal 22-30 [facility] Comment on above: Performed By: #### H GHCT #### [facility] [address] [place] [address] Glucose [Mass/Vol] 95 mg/dL Normal 70-100 [facility] Comment on above: Performed By: #### H GHCT #### [facility] [address] [place] [address] Protein [Mass/Vol] 7.5 g/dL Normal 6.3-8.2 [facility] Comment on above: Performed By: #### H GHCT #### [facility] [address] [place] [address] Urea nitrogen [Mass/Vol] 5 mg/dL Low 7-17 [facility] Comment on above: Performed By: #### H GHCT #### [facility] [address] [place] [address] Creatinine [Mass/Vol] 0.64 mg/dL Normal 0.52-1.25 [facility] Comment on above: Performed By: #### H GHCT #### [facility] [address] [place] [address] eGFR OTHER > 90.0 Normal >60 [facility] Comment on above: [...] secretion. Performed By: #### H GHCT #### [facility] [address] [place] [address] GFR/1.73 sq M.predicted among blacks MDRD (S/P/Bld) [Vol rate/Area] mL/min/{1.73_m2} Normal >60 [facility] Comment on above: Performed By: #### H GHCT #### [facility] [address] [place] [address] Potassium [Moles/Vol] 4.0 mmol/L Normal 3.5-5.1 [facility] Comment on above: Performed By: #### H GHCT #### [facility] [address] [place] [address] Albumin [Mass/Vol] 4.6 g/dL Normal 3.5-5.0 [facility] Comment on above: Performed By: #### H GHCT #### [facility] [address] [place] [address] Chloride [Moles/Vol] 94 mmol/L Low 98-107 [facility] Comment on above: Performed By: #### H GHCT #### [facility] [address] [place] [address] Sodium [Moles/Vol] 133 mmol/L Low 135-145 [facility] Comment on above: Performed By: #### H GHCT #### [facility] [address] [place] [address] Comprehensive Metabolic Pane arnulfo 09-26-2021 Albumin [Mass/Vol] 4.6 g/dL 3.5 - [...] - 1.25 mg/dL [facility] EGFR IF NonAfrican [place] >90.0 >60 mL/min [facility] Comment on above: [...] fraction] 7.5 g/dL 6.3 - 8.2 g/dL [facility] GFR/1.73 sq M.predicted among blacks MDRD (S/P/Bld) [Vol rate/Area] mL/min/{1.73_m2} >60 mL/min [facility] Glucose [Mass/Vol] 95 mg/dL 70 - 100 mg/dL [facility] Interpretation and review of laboratory results Abnormal [facility] Potassium [Moles/Vol] 4.0 mmol/L 3.5 - 5.1 mmol/L [facility] Sodium [Moles/Vol] 133 mmol/L Low 135 - 145 mmol/L [facility] Urea nitrogen (BldV) [Mass/Vol] 5 mg/dL Low 7 - 17 mg/dL [facility] Ethanolon 09-26-2021 Ethanol Lvl 0.346 g/dL Critically high 0.000 - 0.010 g/dL [facility] Comment on above: NOTE: This result is for medical treatment only. Analysis performed using non-forensic procedures. Interpretation and review of laboratory results Abnormal [facility] Ethanol Serum/Plasmaon 09-26 Ethanol-Serum/Plasma 0.346 g/dL Critically high 0.000-0.01 0 [facility] Comment on above: Result Comment: NOTE : This result is for medical treatment only. Analysis performed using non-forensic procedures. Performed By: #### H GHCT #### [facility] [address] [place] [address] Hemogram w/ Autodiffon 09-26 Abs Baso Cnt 0.1 10*3/uL Normal 0.0-0.2 [facility] Comment on above: Performed By: #### H GHCT #### [facility] [address] [place] [address] Abs Neutrophile Cnt 2.0 10*3/uL Normal 1.8-7.0 [facility] Comment on above: Performed By: #### H GHCT #### [facility] [address] [place] [address] Basophils/100 WBC (Bld) 1.7 % Normal 0.0-2.0 [facility] Comment on above: Performed By: #### H GHCT #### [facility] [address] [facility] [place] [address] Eosinophils (Bld) [#/Vol] 0.0 10*3/uL Normal 0.0-0.5 [facility] Comment on above: Performed By: #### H GHCT #### [facility] [address] [place] [address] Eosinophils/100 WBC (Bld) 0.7 % Low 1.0-6.0 [facility] Comment on above: Performed By: #### H GHCT #### [facility] [address] [place] [address] Erythrocyte distribution width (RBC) [Ratio] 13.3 % Normal 11.5-14.5 [facility] Comment on above: Performed By: #### H GHCT #### [facility] [address] [place] [address] Granulocytes/100 WBC (Bld) 46.7 % Normal 40.0-80.0 [facility] Comment on above: Performed By: #### H GHCT #### [facility] [address] [place] [address] Hematocrit (Bld) [Volume fraction] 45.9 % Normal 40.0-52.0 [facility] Comment on above: Performed By: #### H GHCT #### [facility] [address] [place] [address] Hemoglobin (Bld) [Mass/Vol] 16.8 g/dL Normal 13.0-18.0 [facility] Comment on above: Performed By: #### H GHCT #### [facility] [address] [place] [address] Lymphocytes (Bld) [#/Vol] 1.5 10*3/uL Normal 1.0-4.3 [facility] Comment on above: Performed By: #### H GHCT #### [facility] [address] [place] [address] Lymphocytes/100 WBC (Bld) 34.8 % Normal 20.0-40.0 [facility] Comment on above: Performed By: #### H GHCT #### [facility] [address] [place] [address] MCH (RBC) [Entitic mass] 33.9 pg Normal 26.0-34.0 [facility] Comment on above: Performed By: #### H GHCT #### [facility] [address] [place] [address] MCHC 36.6 % High 32.0-36.0 [facility] Comment on above: Performed By: #### H GHCT #### [facility] [address] [place] [address] MCV (RBC) [Entitic vol] 92.7 fL Normal 80.0-98.0 [facility] Comment on above: Performed By: #### H GHCT #### [facility] [address] [place] [address] Monocytes (Bld) [#/Vol] 0.7 10*3/uL Normal 0.0-0.8 [facility] Comment on above: Performed By: #### H GHCT #### [facility] [address] [place] [address] Monocytes/100 WBC (Bld) 16.1 % High 2.0-10.0 [facility] Comment on above: Performed By: #### H GHCT #### [facility] [address] [place] [address] Platelet mean volume (Bld) [Entitic vol] 8.8 fL Normal 7.4-12.4 [facility] Comment on above: Result Comment: MPV is a calculated measurement using platelet volume ratio. Performed By: #### H GHCT #### [facility] [address] [place] [address] Platelets (Bld) [#/Vol] 189 10*3/uL Normal 140-440 [facility] Comment on above: Performed By: #### H GHCT #### [facility] [address] [place] [address] RBC (Bld) [#/Vol] 4.95 10*6/uL Normal 4.40-5.90 [facility] Comment on above: Performed By: #### H GHCT #### [facility] [address] [place] [address] WBC (Bld) [#/Vol] 4.2 10*3/uL Normal 3.6-10.7 [facility] Comment on above: Performed By: #### H GHCT #### [facility] [address] [place] [address] Lactic Acidon 09-26-2021 Lactate [Moles/Vol] 3.2 mmol/L Critically high 0.7-2.0 [facility] Comment on above: Performed By: #### H GHCT #### [facility] [address] [place] [address] Interpretation and review of laboratory results Abnormal [facility] Lactate [Moles/Vol] 3.2 mmol/L Critically high 0.7 - 2.0 mmol/L [facility] Lipaseon 09-26-2021 Lipase [Catalytic activity/Vol] 135 U/L Normal 23-300 [facility] Comment on above: Performed By: #### H GHCT #### [facility] [address] [place] [place] [address] Lipase [Catalytic activity/Vol] 135 U/L 23 - 300 U/L [facility] Magnesiumon 09-26-2021 Magnesium [Mass/Vol] 1.8 mg/dL Normal 1.6-2.3 [facility] Comment on above: Performed By: #### H GHCT #### [facility] [address] [place] [address] Magnesium [Mass/Vol] 1.8 mg/dL 1.6 - 2 .3 mg/dL [facility] No Panel Informationon 09-26 Test Performed by [facility], [address] , [place], [place] [id number] [place] [address] LAB [facility] Prothrombin Timeon 2 INR 1.0 Normal 0.9-1.1 [facility] Comment on above: [...] Infarction Performed By: #### H GHCT #### [facility] [address] [place] [address] PT Coag (PPP) [Time] 10.3 s Normal 9.0-12.0 [facility] Comment on above: Result Comment: . Performed By: #### H GHCT #### [facility] [address] [place] [address] Protime-INRon 09-26-2021 INR Coag (Bld) [Relative time] 1.0 {INR} [facility] Comment on above: Recommended Anticoag ulant [...] s 9.0 - 1 2.0 s [facility] Comment on above: . TS GELon 09-26-2021 TS GEL ABO Group: A Rh, Gel: POS Antibody Screen Gel: NEG Normal [facility] Comment on above: Performed By: #### C UA2 #### [facility] [address] [place] [address] TYPE AND SCREENon 09-26-2021 ABO Grouping A [facility] Rh Type Positive [facility] Troponin Ion 09-26-2021 Troponin I.cardiac [Mass/Vol] ng/mL Normal 0.000-0.034 [facility] Comment on above: Result Comment: . Performed By: #### H GHCT #### [facility] [address] [place] [address] Troponin x1on 09-26-2021 Troponin I.cardiac [Mass/Vol] ng/mL 0.000 - 0.034 ng/mL [facility] Comment on above: . XR CHEST PORTABLEon 09-27-19 Patient Name: MARIA DE JESUS HOGAN Diagnostic Radiology ACCESSION EXAM DATE/TIME PROCEDURE ORDERING PROVIDER [id number] 09/26/2021 19:48 EDT CR Chest Portable [id number] -IDPESH BECKMAN CPT code 91838 Reason For Exam (CR Chest Portable) epigastric [...] WILLIAM Transcribed Date and Time: 09/26/2021 7:59 [facility] Ubaldo Gay MD - 09/26/2021 Patient Name: MARIA DE JESUS HOGAN Diagnostic Radiology ACCESSION EXAM DATE/TIME PROCEDURE ORDERING PROVIDER [id number] 09/26/2021 19:48 EDT CR Chest Portable [id number] -DIPESH BECKMAN CPT code 55782 Reason For Exam (CR Chest Portable) epigastric [...] WILLIAM Transcribed Date and Time: 09/26/2021 7:59 [facility] Work Phone: Radiology Study observation (narrative) [facility] Work Phone: XR CHEST PORTABLEOrdered By: Ubaldo Gay on 09-26-2021 [facility] Work Phone: Surgical Pathologyon 022 Surgical Pathology Report SEE BELOW [facility] 1 [id number] [facility] PATHOLOGY AND LABORATORY MEDICINE [address] [place] [address] FINAL SURGICAL PATHOLOGY REPORT NAME: MARIA DE JESUS HOGAN : 1965 55 [address] ORR NO.: [id number] LOCATION: 4TN 1437 01 PROCEDURE 06/08/2021 DATE: SURGEON: JAZMÍN WEI [...] characteristics determined by the clinical laboratories of [facility]. They have not [...] negativity on decalcified specimens. Professional Performing Location: [place] [address]. DEPARTMENT OF PATHOLOGY AND LABORATORY MEDICINE [place], [place] [facility] Basic Metabolic Panelon 05-30-2021 Calcium [Mass/Vol] 8.1 mg/dL Low 8.4-10.4 [facility] Comment on above: Performed By: #### H KEIKO BMP3 #### [address] Glucose [Mass/Vol] 151 mg/dL High 70-100 [facility] Comment on above: Performed By: #### H KEIKO BMP3 #### [address] Urea nitrogen [Mass/Vol] 6 mg/dL Low 7-17 [facility] Comment on above: Performed By: #### H KEIKO BMP3 #### [address] Anion gap [Moles/Vol] 5 mmol/L Normal 3-13 [facility] Comment on above: Performed By: #### H KEIKO BMP3 #### [address] CO2 [Moles/Vol] 30 mmol/L Normal 22-30 [facility] Comment on above: Performed By: #### H KEIKO BMP3 #### [facility] [address] [place], [place] Creatinine [Mass/Vol] 0.62 mg/dL Normal 0.52-1.25 [facility] Comment on above: Performed By: #### H KEIKO BMP3 #### [facility] [address] [place], [place] eGFR OTHER > 90.0 Normal >60 [facility] Comment on above: [...] Performed By: #### H KEIKO BMP3 #### [facility] [address] [place], [place] GFR/1.73 sq M.predicted among blacks MDRD (S/P/Bld) [Vol rate/Area] mL/min/{1.73_m2} Normal >60 [facility] Comment on above: Performed By: #### H KEIKO BMP3 #### [facility] [address] [place], [place] Potassium [Moles/Vol] 4.0 mmol/L Normal 3.5-5.1 [facility] Comment on above: Performed By: #### H KEIKO BMP3 #### [facility] [address] [place], [place] Chloride [Moles/Vol] 95 mmol/L Low 98-107 [facility] Comment on above: Performed By: #### H ERNESTO ADEN #### [facility] [address] [place] [address] Sodium [Moles/Vol] 130 mmol/L Low 135-145 [facility] Comment on above: Performed By: #### H ERNESTO ADEN #### [facility] [address] [place] [address] Anion gap [Moles/Vol] 5 mmol/L 3 - 13 mmol/L [facility] Calcium [Mass/Vol] 8.1 mg/dL Low 8.4 - 10. 4 mg/dL [facility] Chloride [Moles/Vol] 95 mmol/L Low 98 - 10 7 mmol/L [facility] CO2 [Moles/Vol] 30 mmol/L 22 - 30 mmol/L [facility] Creatinine [Mass/Vol] 0.62 mg/dL 0.52 - 1.25 mg/dL [facility] EGFR IF NonAfrican [place] >90.0 >60 mL/min [facility] Comment on above: [...] - 17 mg/dL [facility] Test Performed by [id number] [place] [address] LAB [facility] CBC with Auto Differentialon 06-08-2021 [...] 40.0 % 40.0 - 52.0 % [facility] Hemoglobin.gastrointesti nal spec 1 Ql (Stl) 13.3 g/dL 13.0 - 18.0 g/dL [facility] Interpretation and review of laboratory results Abnormal [facility] Lymphocytes (Bld) [#/Vol] 1.0 10*3/uL 1.0 - 4.3 10*3/uL [facility] Lymphocytes/100 WBC (Bld) 24.6 % 20.0 - 40.0 % [facility] MCH (RBC) [Entitic mass] 32.9 pg 26. 0 - 34.0 pg [facility] MCHC (RBC) [Mass/Vol] [...] (Bld) [#/Vol] 4.05 10*6/uL Low 4.40 - 5.9 0 10*6/uL [facility] WBC (Bld) [#/Vol] 4.0 10*3/uL 3.6 - 10.7 10*3/uL [facility] Test Performed by [facility], [address] [place] [id number] [place], [place] [address]A HM ENDOSCOPY REPORTon 2021 Ordered by an unspecified provider. [facility] Hemogram w/ Autodiffon 06-08 Abs Baso Cnt 0.1 10*3/uL Normal 0.0-0.2 [facility] Comment on above: Performed By: #### H KEIKO BMP3 #### [address] [address] Abs Neutrophile Cnt 2.4 10*3/uL Normal 1.8-7.0 [facility] Comment on above: Performed By: #### H KEIKO BMP3 #### [address] [address] Basophils/100 WBC (Bld) 1.5 % Normal 0.0-2.0 [facility] Comment on above: Performed By: #### H KEIKO BMP3 #### [address] [address] Eosinophils (Bld) [#/Vol] 0.1 10*3/uL Normal 0.0-0.5 [facility] Comment on above: Performed By: #### H KEIKO BMP3 #### [address] [address] Eosinophils/100 WBC (Bld) 3.0 % Normal 1.0-6.0 [facility] Comment on above: Performed By: #### H KEIKO BMP3 #### [address] Erythrocyte distribution width (RBC) [Ratio] 13.8 % Normal 11.5-14.5 [facility] Comment on above: Performed By: #### H KEIKO BMP3 #### [facility] [address] [place], [place] Granulocytes/100 WBC (Bld) 60.8 % Normal 40.0-80.0 [facility] Comment on above: Performed By: #### H KEIKO BMP3 #### [facility] [address] [place], [place] Hematocrit (Bld) [Volume fraction] 40.0 % Normal 40.0-52.0 [facility] Comment on above: Performed By: #### H KEIKO BMP3 #### [place] [address] [place], [place] Hemoglobin (Bld) [Mass/Vol] 13.3 g/dL Normal 13.0-18.0 [facility] Comment on above: Performed By: #### H KEIKO BMP3 #### [place] [address] [place], [place] Lymphocytes (Bld) [#/Vol] 1.0 10*3/uL Normal 1.0-4.3 [facility] Comment on above: Performed By: #### H KEIKO BMP3 #### [place] [address] [place], [place] Lymphocytes/100 WBC (Bld) 24.6 % Normal 20.0-40.0 [facility] Comment on above: Performed By: #### H KEIKO BMP3 #### [facility] [address] [place], [place] MCH (RBC) [Entitic mass] 32.9 pg Normal 26.0-34.0 [facility] Comment on above: Performed By: #### H KEIKO BMP3 #### [place] [address] [place], [place] MCHC 33.3 % Normal 32.0-36.0 [facility] Comment on above: Performed By: #### H KEIKO BMP3 #### [place] [address] [place], [place] MCV (RBC) [Entitic vol] 98.7 fL High 80.0-98.0 [facility] Comment on above: Performed By: #### H EMDBasim, BMP3 #### [facility] [address] [place], [place] Monocytes (Bld) [#/Vol] 0.4 10*3/uL Normal 0.0-0.8 [facility] Comment on above: Performed By: #### H EMDF, BMP3 #### [place] [address] [place], [place] Monocytes/100 WBC (Bld) 10.1 % High 2.0-10.0 [facility] Comment on above: Performed By: #### H EMDF, BMP3 #### [place] [address] [place], [place] Platelet mean volume (Bld) [Entitic vol] 7.8 fL Normal 7.4-10.4 [facility] Comment on above: Performed By: #### H EMDF, BMP3 #### [address] Platelets (Bld) [#/Vol] 163 10*3/uL Normal 140-440 [facility] Comment on above: Performed By: #### H EMDF, BMP3 #### [place] [address] [place], [place] RBC (Bld) [#/Vol] 4.05 10*6/uL Low 4.40-5.90 [facility] Comment on above: Performed By: #### H EMDF, BMP3 #### [address] WBC (Bld) [#/Vol] 4.0 10*3/uL Normal 3.6-10.7 [facility] Comment on above: Performed By: #### H EMDF, BMP3 #### [address] Surgical Pathologyon 022 Surgical Pathology [id number] [facility] PATHOLOGY AND LABORATORY MEDICINE [address] [place] [address] FINAL SURGICAL PATHOLOGY REPORT NAME: SAMIRA MARIA DE JESUS Chika : 1965 55 [address] ORR NO.: [id number] LOCATION: [address] [place] [address] 01 PROCEDURE 06/08/2021 DATE: SURGEON: JAZMÍN WEI [...] characteristics determined by the clinical laboratories of [facility]. They have not [...] negativity on decalcified specimens. Professional Performing Location: [place] [address]. DEPARTMENT OF PATHOLOGY AND LABORATORY MEDICINE [place], [place] [address] [email or web address] [facility] CBC with Auto Differentialon 06-07-2021 Absolute Baso # 0.1 10*3/uL 0.0 - 0.2 10*3/uL [facility] Absolute Neut # 2.1 10*3/uL 1.8 - 7.0 10*3/uL [facility] Basophils/100 WBC (Bld) 1.3 % 0.0 - 2.0 % [facility] Eosinophils (Bld) [#/Vol] 0.1 10*3/uL 0.0 - 0.5 10*3/uL [facility] Eosinophils/100 WBC (Bld) 1.9 % 1.0 - 6.0 % [facility] Granulocytes/100 WBC (Bld) 53.3 % 40.0 - 80.0 % [facility] Hematocrit (Bld) [Volume fraction] 45.3 % 40.0 - 52.0 % [facility] Hemoglobin.gastrointesti nal spec 1 Ql (Stl) 15.3 g/dL 13.0 - 18.0 g/dL [facility] Interpretation and review of laboratory results Abnormal [facility] Lymphocytes (Bld) [#/Vol] 1.2 10*3/uL 1.0 - 4.3 10*3/uL [facility] Lymphocytes/100 WBC (Bld) 30.2 % 20.0 - 40.0 % [facility] MCH (RBC) [Entitic mass] 33.1 pg 26. 0 - 34.0 pg [facility] MCHC (RBC) [Mass/Vol] [...] RBC (Bld) [#/Vol] 4.62 10*6/uL 4.40 - 5.9 0 10*6/uL [facility] WBC (Bld) [#/Vol] 3.9 10*3/uL 3.6 - 10.7 10*3/uL [facility] Test Performed by [facility], [address] [place] [address] [facility] Comp Panel with Mg Reflexon 06-07-2021 ALP [Catalytic activity/Vol] 92 U/L Normal 38-126 [facility] Comment on above: Performed By: #### H EMDF, MG3, CMP3M #### [place] [address] [place], [place] ALT [Catalytic activity/Vol] 144 U/L High 0-49 [facility] Comment on above: Result Comment: The ALT test is performed by an updated assay method. Please note that the reference intervals have been changed and are now sex specific. Performed By: #### H EMDF, MG3, CMP3M #### [place] [address] [place], [place] Anion gap [Moles/Vol] 10 mmol/L Normal 3-13 [facility] Comment on above: Performed By: #### H EMDF, MG3, CMP3M #### [place] [address] [place], [place] AST [Catalytic activity/Vol] 104 U/L High 15-46 [facility] Comment on above: Performed By: #### H EMDF, MG3, CMP3M #### [place] [address] [place], [place] Bilirubin [Mass/Vol] 0.6 mg/dL Normal 0.2-1.3 [facility] Comment on above: Performed By: #### H EMDF, MG3, CMP3M #### [place] [address] [place], [place] CO2 [Moles/Vol] 26 mmol/L Normal 22-30 [facility] Comment on above: Performed By: #### H EMDF, MG3, CMP3M #### [place] [address] [place], [place] Glucose [Mass/Vol] 133 mg/dL High 70-100 [facility] Comment on above: Performed By: #### H EMDF, MG3, CMP3M #### [place] [address] [place], [place] Protein [Mass/Vol] 7.0 g/dL Normal 6.3-8.2 [facility] Comment on above: Performed By: #### H EMDF, MG3, CMP3M #### [place] [address] [place], [place] Urea nitrogen [Mass/Vol] 6 mg/dL Low 7-17 [facility] Comment on above: Performed By: #### H MARK ADEN CMP3M #### [address] Creatinine [Mass/Vol] 0.72 mg/dL Normal 0.52-1.25 [facility] Comment on above: Performed By: #### H KEIKO MGViky CMP3M #### [address] eGFR OTHER > 90.0 Normal >60 [facility] Comment on above: [...] creatinine secretion. Performed By: #### H KEIKO MGViky CMP3M #### [address] GFR/1.73 sq M.predicted among blacks MDRD (S/P/Bld) [Vol rate/Area] mL/min/{1.73_m2} Normal >60 [facility] Comment on above: Performed By: #### H KEIKO MG3 CMP3M #### [address] Albumin [Mass/Vol] 4.2 g/dL Normal 3.5-5.0 [facility] Comment on above: Performed By: #### H KEIKO MG3 CMP3M #### [address] [place], [place] Chloride [Moles/Vol] 94 mmol/L Low 98-107 [facility] Comment on above: Performed By: #### H MARK ADEN CMP3M #### [facility] [address] [place], [place] Potassium [Moles/Vol] 3.5 mmol/L Normal 3.5-5.1 [facility] Comment on above: Performed By: #### H MARK ADEN, CMP3M #### [facility] [address] [place], [place] Sodium [Moles/Vol] 130 mmol/L Low 135-145 [facility] Comment on above: Performed By: #### H MG KEIKO3, CMP3M #### [place] [address] [place], [place] Calcium [Mass/Vol] 8.5 mg/dL Normal 8.4-10.4 [facility] Comment on above: Performed By: #### H MG KEIKO3 CMP3M #### [place] [address] [place], [place] Comprehensive Metabolic Pane l w/ Reflex to MGon 06-07-2021 Albumin [Mass/Vol] 4.2 g/dL 3.5 - 5.0 g/dL [facility] ALP (Bld) [Catalytic activity/Vol] 92 U/L 38 - 126 U/L [facility] ALT [Catalytic activity/Vol] 144 U/L High 0 - 49 U/L [facility] Comment on above: The ALT test is [...] [Mass/Vol] 0.72 mg/dL 0.52 - 1.25 mg/dL [facility] EGFR IF NonAfrican [place] >90.0 >60 mL/min [facility] Comment on above: KDIGO guidelines pro [...] 133 mg/dL High 70 - 100 mg/dL [facility] Interpretation and review of laboratory results Abnormal [facility] Potassium [Moles/Vol] 3.5 mmol/L 3.5 - 5.1 mmol/L [facility] Sodium [Moles/Vol] 130 mmol/L Low 135 - 145 mmol/L [facility] Urea nitrogen (BldV) [Mass/Vol] 6 mg/dL Low 7 - 17 mg/dL [facility] Test Performed by [facility] [employer] [facility], [address] [place] [id number] [place] [address] LAB [facility] Hemoglobin AND Hematocriton 06-07-2021 Hematocrit (Bld) [Volume fraction] 42.5 % Normal 40.0-52.0 [facility] Comment on above: Performed By: #### H GHCT #### [place] [address] [place] [address] Hemoglobin (Bld) [Mass/Vol] 14.4 g/dL Normal 13.0-18.0 [facility] Comment on above: Performed By: #### H GHCT #### [address] Hemoglobin and Hematocriton 06-07-2021 Hematocrit (Bld) [Volume fraction] 42.5 % 40.0 - 52.0 % [facility] Hemoglobin.gastrointesti nal spec 1 Ql (Stl) 14.4 g/dL 13.0 - 18.0 g/dL [facility] Test Performed by [address] [address] [facility] Hemogram w/ Autodiffon 06-07 Abs Baso Cnt 0.1 10*3/uL Normal 0.0-0.2 [facility] Comment on above: Performed By: #### H EMDF, MG3, CMP3M #### [address] Abs Neutrophile Cnt 2.1 10*3/uL Normal 1.8-7.0 [facility] Comment on above: Performed By: #### H EMDF, MG3, CMP3M #### [address] Basophils/100 WBC (Bld) 1.3 % Normal 0.0-2.0 [facility] Comment on above: Performed By: #### H EMDF, MG3, CMP3M #### [address] Eosinophils (Bld) [#/Vol] 0.1 10*3/uL Normal 0.0-0.5 [facility] Comment on above: Performed By: #### H EMDF, MG3, CMP3M #### [address] Eosinophils/100 WBC (Bld) 1.9 % Normal 1.0-6.0 [facility] Comment on above: Performed By: #### H EMDF, MG3, CMP3M #### [address] Erythrocyte distribution width (RBC) [Ratio] 14.1 % Normal 11.5-14.5 [facility] Comment on above: Performed By: #### H EMDF, MG3, CMP3M #### [place] [address] [place], [place] Granulocytes/100 WBC (Bld) 53.3 % Normal 40.0-80.0 [facility] Comment on above: Performed By: #### H EMDF, MG3, CMP3M #### [place] [address] [place], [place] Hematocrit (Bld) [Volume fraction] 45.3 % Normal 40.0-52.0 [facility] Comment on above: Performed By: #### H EMDF, MG3, CMP3M #### [address] [place] [address] [place], [place] Hemoglobin (Bld) [Mass/Vol] 15.3 g/dL Normal 13.0-18.0 [facility] Comment on above: Performed By: #### H EMDF, MG3, CMP3M #### [place] [address] [place], [place] Lymphocytes (Bld) [#/Vol] 1.2 10*3/uL Normal 1.0-4.3 [facility] Comment on above: Performed By: #### H EMDF, MG3, CMP3M #### [place] [address] [place], [place] Lymphocytes/100 WBC (Bld) 30.2 % Normal 20.0-40.0 [facility] Comment on above: Performed By: #### H EMDF, MG3, CMP3M #### [place] [address] [place], [place] MCH (RBC) [Entitic mass] 33.1 pg Normal 26.0-34.0 [facility] Comment on above: Performed By: #### H EMDF, MG3, CMP3M #### [place] [address] [place], [place] MCHC 33.7 % Normal 32.0-36.0 [facility] Comment on above: Performed By: #### H EMDF, MG3, CMP3M #### [facility] [address] [place], [place] MCV (RBC) [Entitic vol] 98.1 fL High 80.0-98.0 [facility] Comment on above: Performed By: #### H EMDF, MG3, CMP3M #### [place] [address] [place], [place] Monocytes (Bld) [#/Vol] 0.5 10*3/uL Normal 0.0-0.8 [facility] Comment on above: Performed By: #### H EMDF, MG3, CMP3M #### [place] [address] [place], [place] Monocytes/100 WBC (Bld) 13.3 % High 2.0-10.0 [facility] Comment on above: Performed By: #### H EMDF, MG3, CMP3M #### [place] [address] [place], [place] Platelet mean volume (Bld) [Entitic vol] 6.9 fL Low 7.4-10.4 [facility] Comment on above: Performed By: #### H EMDF, MG3, CMP3M #### [address] Platelets (Bld) [#/Vol] 195 10*3/uL Normal 140-440 [facility] Comment on above: Performed By: #### H EMDF, MG3, CMP3M #### [place] [address] [place], [place] RBC (Bld) [#/Vol] 4.62 10*6/uL Normal 4.40-5.90 [facility] Comment on above: Performed By: #### H EMDF, MG3, CMP3M #### [address] WBC (Bld) [#/Vol] 3.9 10*3/uL Normal 3.6-10.7 [facility] Comment on above: Performed By: #### H EMDF, MG3, CMP3M #### [facility] [address] [place] [address] Lactic Acidon 06-07-2021 Lactate [Moles/Vol] 0.8 mmol/L Normal 0.7-2.0 [facility] Comment on above: Performed By: #### L ACT3 #### [address] Test Performed by [facility], [address] [place] [id number] [place] [address] LAB Lactate [Moles/Vol] 2.6 mmol/L Critically high 0.7-2.0 [facility] Comment on above: Performed By: #### L ACT3 #### [address] Interpretation and review of laboratory results Abnormal [facility] Lactate [Moles/Vol] 2.6 mmol/L Critically high 0.7 - 2.0 mmol/L [facility] Test Performed by [facility], [address] [place] [id number] [place] [address] LAB [facility] Lactic AcidOrdered By: Valeriano Saavedra on 06-07-2021 Lactate [Moles/Vol] 0.8 mmol/L 0.7 - 2. 0 mmol/L [facility] Magnesiumon 06-07-2021 Magnesium [Mass/Vol] 1.9 mg/dL Normal 1.6-2.3 [facility] Comment on above: Performed By: #### H EMDF, MG3, CMP3M ####[facility] [place] [address] Magnesium [Mass/Vol] 1.9 mg/dL 1.6 - 2 .3 mg/dL [facility] Test Performed by [id number] [place] [address] LAB [facility] Add On Lab Teston 06-06-2021 Add On Accepted [facility] Comment on above: Specimen available & acceptable for analysis. Test Performed by [facility], [facility] Jarred Hernández , [address] LAB [facility] Add on test from HISon 06-06 Add on test from HIS Accepted Normal [facility] Comment on above: Result Comment: Spec imen available & acceptable for analysis. Performed By: #### A DDON #### [facility] [address] [place] [address] CT Abdomen and Pelvis W cont rast Main 06-06-2021 Patient Name: MARIA DE JESUS HOGAN Computed Tomography ACCESSION EXAM DATE/TIME PROCEDURE ORDERING PROVIDER [id number] 06/06/2021 17:[address] Abdomen/Pelvis w/ IV [id number] CATALINO ROTH Contrast (IV Onl CPT code 69311 Q9967 Reason For Exam (CT Abdomen/Pelvis w/ [...] CHRISTOPHER Transcribed Date and Time: 06/06/2021 6:40 [facility] Zuly De La O MD - 06/06/2021 Patient Name: MARIA DE JESUS HOGAN Computed Tomography ACCESSION EXAM DATE/TIME PROCEDURE ORDERING PROVIDER [id number] 06/06/2021 17:[address] Abdomen/Pelvis w/ IV [id number] -CATALINO DIALLO Contrast (IV Onl CPT code 12937 Q9967 Reason For Exam (CT Abdomen/Pelvis w/ [...] Contrast Patient Name: [id number] Computed Tomography ACCESSION EXAM DATE/TIME PROCEDURE ORDERING PROVIDER [id number] 06/06/2021 17:[address] Abdomen/Pelvis w/ [place] [id number] CATALINO ROTH Contrast (IV Onl CPT code 52341 Q9967 Reason For Exam (CT Abdomen/Pelvis w/ [...] Transcribed Date and Time: 06/06/2021 6:40 Normal [facility] Comp Metabolic Panelon 06-06 ALP [Catalytic activity/Vol] 101 U/L Normal 38-126 [facility] Comment on above: Performed By: #### E TOH4, PT, HEMOG, LIPA4, MG3, CMP3 #### [facility] [address] [place] [address] Anion gap [Moles/Vol] 14 mmol/L High 3-13 [facility] Comment on above: Performed By: #### E TOH4, PT, HEMOG, LIPA4, MG3, CMP3 #### [facility] [address] [place] [address] AST [Catalytic activity/Vol] 191 U/L High 15-46 [facility] Comment on above: Performed By: #### E TOH4, PT, HEMOG, LIPA4, MG3, CMP3 #### [facility] [address] [place] [address] Bilirubin [Mass/Vol] 0.7 mg/dL Normal 0.2-1.3 [facility] Comment on above: Performed By: #### E TOH4, PT, HEMOG, LIPA4, MG3, CMP3 #### [facility] [address] [place] [address] CO2 [Moles/Vol] 25 mmol/L Normal 22-30 [facility] Comment on above: Performed By: #### E TOH4, PT, HEMOG, LIPA4, MG3, CMP3 #### [facility] [address] [place] [address] Creatinine [Mass/Vol] 0.73 mg/dL Normal 0.52-1.25 [facility] Comment on above: Performed By: #### E TOH4, PT, HEMOG, LIPA4, MG3, CMP3 #### [facility] [address] [place] [address] eGFR OTHER > 90.0 Normal >60 [facility] Comment on above: [...] TOH4, PT, HEMOG, LIPA4, MG3, CMP3 #### [facility] [address] [place] [address] GFR/1.73 sq M.predicted among blacks MDRD (S/P/Bld) [Vol rate/Area] mL/min/{1.73_m2} Normal >60 [facility] Comment on above: Performed By: #### E TOH4, PT, HEMOG, LIPA4, MG3, CMP3 #### [facility] [address] [place] [address] Protein [Mass/Vol] 7.8 g/dL Normal 6.3-8.2 [facility] Comment on above: Performed By: #### E TOH4, PT, HEMOG, LIPA4, MG3, CMP3 #### [facility] [address] [place] [address] Urea nitrogen [Mass/Vol] 7 mg/dL Normal 7-17 [facility] Comment on above: Performed By: #### E TOH4, PT, HEMOG, LIPA4, MG3, CMP3 #### [facility] [address] [place] [address] Chloride [Moles/Vol] 95 mmol/L Low 98-107 [facility] Comment on above: Performed By: #### E TOH4, PT, HEMOG, LIPA4, MG3, CMP3 #### [facility] [address] [place] [address] Potassium [Moles/Vol] 4.1 mmol/L Normal 3.5-5.1 [facility] Comment on above: Result Comment: Slig htly hemolysed, interpret with caution. Performed By: #### E TOH4, PT, HEMOG, LIPA4, MG3, CMP3 #### [facility] [address] [place] [address] Sodium [Moles/Vol] 133 mmol/L Low 135-145 [facility] Comment on above: Performed By: #### E TOH4, PT, HEMOG, LIPA4, MG3, CMP3 #### [facility] [address] [place] [address] Albumin [Mass/Vol] 4.6 g/dL Normal 3.5-5.0 [facility] Comment on above: Performed By: #### E TOH4, PT, HEMOG, LIPA4, MG3, CMP3 #### [facility] [address] [place] [address] ALT [Catalytic activity/Vol] 197 U/L High 0-49 [facility] Comment on above: The ALT test is [...] TOH4, PT, HEMOG, LIPA4, MG3, CMP3 #### [facility] [address] [place] [address] Calcium [Mass/Vol] 9.2 mg/dL Normal 8.4-10.4 [facility] Comment on above: Performed By: #### E TOH4, PT, HEMOG, LIPA4, MG3, CMP3 #### [facility] [address] [place] [address] Glucose [Mass/Vol] 105 mg/dL High 70-100 [facility] Comment on above: Performed By: #### E TOH4, PT, HEMOG, LIPA4, MG3, CMP3 #### [facility] [address] [place] [address] Comprehensive Metabolic Pane [facility] 06-06-2021 Albumin [Mass/Vol] 4.6 g/dL 3.5 - [...] - 1.25 mg/dL [facility] EGFR IF NonAfrican [place] >90.0 >60 mL/min [facility] Comment on above: [...] fraction] 7.8 g/dL 6.3 - 8.2 g/dL [facility] GFR/1.73 sq M.predicted among blacks MDRD (S/P/Bld) [Vol rate/Area] mL/min/{1.73_m2} >60 mL/min [facility] Interpretation and review of laboratory results Abnormal [facility] Potassium [Moles/Vol] 4.1 mmol/L 3.5 - 5.1 mmol/L [facility] Comment on above: Slightly hemolysed, interpret with caution. Sodium [Moles/Vol] 133 mmol/L Low 135 - 145 mmol/L [facility] Urea nitrogen (BldV) [Mass/Vol] 7 mg/dL 7 - 17 mg/dL [facility] EKG 12 Lead - Chest Painon 0 06-06-2021 [facility] Test Date: 2021-06-06 Pat Name: MARIA DE JESUS DAHLGREN Department: 2BED Room: 05 Gender: M Pillowcase Sewer: ROJAS : 1965 Requested By: CATALINO DIALLO Order Number: [id number] Reading MD: Catalino Diallo Measurements Intervals [place] Rate: 93 P: 60 RI: 168 QRS: 75 QRSD: 86 T: 48 QT: 372 QTc: 463 Interpretive Statements SINUS RHYTHM rate 93 Normal intervals and QRS duration NO acute ischemic changes Electronically Signed On 06-06-2021 17:05:37 EST by Catalino VASQUEZ CARDIOLOGY Catalino Diallo, DO - 06/06/2021 [facility] Test Date: 2021-06-06 Pat Name: [facility] Department: 2BED Room: 05 Gender: M Pillowcase Sewer: [place] : 1965 Requested By: CATALINO DIALLO Order Number: [id number] Reading : Catalino Diallo Measurements Intervals [place] Rate: 93 P: 60 RI: 168 QRS: 75 QRSD: 86 T: 48 QT: 372 QTc: 463 Interpretive Statements SINUS RHYTHM rate 93 Normal intervals and QRS duration NO acute ischemic changes Electronically Signed On 06-06-2021 17:05:37 EST by Catalino VASQUEZ Work Phone: [facility] Work Phone: Ethanolon 06-06-2021 Ethanol Lvl 0.364 g/dL Critically high 0.000 - 0.010 g/dL [facility] Comment on above: NOTE: This result is for medical treatment only. Analysis performed using non-forensic procedures. Interpretation and review of laboratory results Abnormal [facility] Test Performed by [facility], [address] , [address] LAB [facility] Ethanol Serum/Plasmaon 06-06 Ethanol-Serum/Plasma 0.364 g/dL Critically high 0.000-0.01 0 [facility] Comment on above: Result Comment: NOTE : This result is for medical treatment only. Analysis performed using non-forensic procedures. Performed By: #### C UA2 #### [address] [place] [address] Hemogramon 06-06-2021 Erythrocyte distribution width (RBC) [Ratio] 13.6 % Normal 11.5-14.5 [facility] Comment on above: Performed By: #### E TOH4, PT, HEMOG, LIPA4, MG3, CMP3 #### [facility] [address] [place] [address] Hematocrit (Bld) [Volume fraction] 49.2 % Normal 40.0-52.0 [facility] Comment on above: Performed By: #### E TOH4, PT, HEMOG, LIPA4, MG3, CMP3 #### [facility] [address] [place] [address] Hemoglobin (Bld) [Mass/Vol] 17.0 g/dL Normal 13.0-18.0 [facility] Comment on above: Performed By: #### E TOH4, PT, HEMOG, LIPA4, MG3, CMP3 #### [facility] [address] [place] [address] MCH (RBC) [Entitic mass] 33.1 pg Normal 26.0-34.0 [facility] Comment on above: Performed By: #### E TOH4, PT, HEMOG, LIPA4, MG3, CMP3 #### [facility] [address] [place] [address] MCHC 34.6 % Normal 32.0-36.0 [facility] Comment on above: Performed By: #### E TOH4, PT, HEMOG, LIPA4, MG3, CMP3 #### [facility] [address] [place] [address] MCV (RBC) [Entitic vol] 95.6 fL Normal 80.0-98.0 [facility] Comment on above: Performed By: #### E TOH4, PT, HEMOG, LIPA4, MG3, CMP3 #### [facility] [address] [place] [address] Platelet mean volume (Bld) [Entitic vol] 6.6 fL Low 7.4-10.4 [facility] Comment on above: Performed By: #### E TOH4, PT, HEMOG, LIPA4, MG3, CMP3 #### [facility] [address] [place] [address] Platelets (Bld) [#/Vol] 271 10*3/uL Normal 140-440 [facility] Comment on above: Performed By: #### E TOH4, PT, HEMOG, LIPA4, MG3, CMP3 #### [facility] [address] [place] [address] RBC (Bld) [#/Vol] 5.14 10*6/uL Normal 4.40-5.90 [facility] Comment on above: Performed By: #### E TOH4, PT, HEMOG, LIPA4, MG3, CMP3 #### [facility] [address] [place] [address] WBC (Bld) [#/Vol] 4.8 10*3/uL Normal 3.6-10.7 [facility] Comment on above: Performed By: #### E TOH4, PT, HEMOG, LIPA4, MG3, CMP3 #### [facility] [address] [place] [address] Hemogram (CBC)on 06-06-2021 Hematocrit (Bld) [Volume fraction] 49.2 % 40.0 - 52.0 % [facility] Hemoglobin.gastrointesti nal spec 1 Ql (Stl) 17.0 g/dL 13.0 - 18.0 g/dL [facility] Interpretation and review of laboratory results Abnormal [facility] MCH (RBC) [Entitic mass] 33.1 pg 26. 0 - 34.0 pg [facility] MCHC (RBC) [Mass/Vol] [...] RBC (Bld) [#/Vol] 5.14 10*6/uL 4.40 - 5.9 0 10*6/uL [facility] WBC (Bld) [#/Vol] 4.8 10*3/uL 3.6 - 10.7 10*3/uL [facility] Test Performed by [facility], [address] LAB [facility] Lipaseon 06-06-2021 Lipase [Catalytic activity/Vol] 197 U/L Normal 23-300 [facility] Comment on above: Performed By: #### E TOH4, PT, HEMOG, LIPA4, MG3, CMP3 #### [facility] [address] [place] [address] Magnesiumon 06-06-2021 Magnesium [Mass/Vol] 2.0 mg/dL Normal 1.6-2.3 [facility] Comment on above: Performed By: #### E TOH4, PT, HEMOG, LIPA4, MG3, CMP3 #### [facility] [address] [place] [address] No Panel Informationon 06-06 Test Performed by [facility], [address] LAB [facility] Prothrombin Timeon 2 INR 1.0 Normal 0.9-1.1 [facility] Comment on above: [...] TOH4, PT, HEMOG, LIPA4, MG3, CMP3 #### [facility] [address] [place] [address] PT Coag (PPP) [Time] 10.7 s Normal 9.0-12.0 [facility] Comment on above: . Result Comment: . Performed By: #### E TOH4, PT, HEMOG, LIPA4, MG3, CMP3 #### [facility] [address] [place] [address] Protime-INRon 06-06-2021 INR Coag (Bld) [Relative time] 1.0 {INR} [facility] Comment on above: Recommended Anticoag ulant [...] to prevent Myocardial Infarction Test Performed by [facility], [facility] [address] , [address] LAB [facility] TS GELon 06-06-2021 TS GEL ABO Group: A Rh, Gel: POS Antibody Screen Gel: NEG Normal [facility] Comment on above: Performed By: #### C UA2 #### [facility] [address] [place] [address] TYPE AND SCREENon 06-06-2021 ABO Grouping A [facility] Rh Type Positive [facility] Test Performed by [facility], [address] , [place] [id number] [facility] Complete Urinalysison 2021 Appearance (U) Clear Normal Clear [facility] Comment on above: Result Comment: . Performed By: #### C UA2 #### [facility] [address] [place] [address] Bilirubin,Urine Negative Normal Negative [facility] Comment on above: Result Comment: . Performed By: #### C UA2 #### [facility] [address] [place] [address] Color (U) LIGHT YELLOW Normal Lt. Yellow [facility] Comment on above: Result Comment: . Performed By: #### C UA2 #### [facility] [address] [place] [address] Glucose Ql (U) Normal Normal Normal (<70) [facility] Comment on above: Result Comment: . Performed By: #### C UA2 #### [facility] [address] [place] [address] Ketone,Urine Negative Normal Negative [facility] Comment on above: Result Comment: . Performed By: #### C UA2 #### [facility] [address] [place] [address] Leukocytes,Urine Negative Normal Negative [facility] Comment on above: Result Comment: . Performed By: #### C UA2 #### [facility] [address] [place] [address] Nitrites,Urine Negative Normal Negative [facility] Comment on above: Result Comment: . Performed By: #### C UA2 #### [facility] [address] [place] [address] Occult Blood,Urine Negative Normal Negative [facility] Comment on above: Result Comment: . Performed By: #### C UA2 #### [facility] [address] [place] [address] pH,Urine 6.5 Normal 5.0-8.0 [facility] Comment on above: Result Comment: . Performed By: #### C UA2 #### [facility] [address] [place] [address] Specific [place],Urine 1.008 Normal 1.005 - 1.030 [facility] Comment on above: Result Comment: . Performed By: #### C UA2 #### [facility] [address] [place] [address] Total Protein,Urine Negative Normal Negative [facility] Comment on above: Result Comment: . Performed By: #### C UA2 #### [facility] [address] [place] [address] Urobilinogen,Urine Normal Normal Normal (0-1) [facility] Comment on above: Result Comment: . Performed By: #### C UA2 #### [facility] [address] [place] [address] UrinalysisOrdered By: Gary Sheikh on 04-06-2021 Appearance (U) Clear Clear NA [employer] Work Phone: Comment on above: . Bilirubin Urine Negative Negative mg/dL [facility] Work Phone: Comment on above: . Color (U) LIGHT YELLOW Lt. Yellow NA [employer] Work Phone: Comment on above: . Glucose, Ur Normal Normal (<70) mg/dL [facility] Work Phone: Comment on above: . Ketones Ql (U) Negative Negative mg/dL [facility] Work Phone: Comment on above: . LEUKOCYTES, UA Negative Negative Estefani/uL [employer] Work Phone: Comment on above: . Nitrite, Urine Negative Negative NA [facility] Work Phone: Comment on above: . Occult Blood,Urine Negative Negative mg/dL [facility] Work Phone: Comment on above: . pH (U) 6.5 [pH] [employer] Work Phone: Comment on above: . Specific [place], Urine 1.008 S [facility] Work Phone: Comment on above: . Total Protein, Urine Negative Negativ e mg/dL [facility] Work Phone: Comment on above: . Urobilinogen, Urine Normal Normal (0-1) mg/dL [facility] Work Phone: Comment on above: . [facility] Work Phone: Urinalysison 04-06-2021 Test Performed by [facility], [address] , [place], [place] [id number] [place] [address] LAB Comp Metabolic Panelon 02-15 Albumin [Mass/Vol] 4.1 g/dL Normal 3.5-5.0 [facility] Comment on above: Performed By: #### C OVAG #### [facility] [address] [place] [address] ALP [Catalytic activity/Vol] 92 U/L Normal 38-126 [facility] Comment on above: Performed By: #### C OVAG #### [facility] [address] [place] [address] ALT [Catalytic activity/Vol] 109 U/L High 0-49 [facility] Comment on above: Result Comment: The ALT test is performed by an updated assay method. Please note that the reference intervals have been changed and are now sex specific. Performed By: #### C OVAG #### [facility] [address] [place] [address] Anion gap [Moles/Vol] 12 mmol/L Normal 3-13 [facility] Comment on above: Performed By: #### C OVAG #### [facility] [address] [place] [address] AST [Catalytic activity/Vol] 92 U/L High 15-46 [facility] Comment on above: Performed By: #### C OVAG #### [facility] [address] [place] [address] Bilirubin [Mass/Vol] 0.4 mg/dL Normal 0.2-1.3 [facility] Comment on above: Performed By: #### C OVAG #### [facility] [address] [place] [address] Calcium [Mass/Vol] 8.8 mg/dL Normal 8.4-10.4 [facility] Comment on above: Performed By: #### C OVAG #### [facility] [address] [place] [address] Chloride [Moles/Vol] 100 mmol/L Normal 98-107 [facility] Comment on above: Performed By: #### C OVAG #### [facility] [address] [place] [address] CO2 [Moles/Vol] 25 mmol/L Normal 22-30 [facility] Comment on above: Performed By: #### C OVAG #### [facility] [address] [place] [address] Creatinine [Mass/Vol] 0.58 mg/dL Normal 0.52-1.25 [facility] Comment on above: Performed By: #### C OVAG #### [facility] [address] [place] [address] eGFR OTHER > 90.0 Normal >60 [facility] Comment on above: [...] secretion. Performed By: #### C OVAG #### [facility] [address] [place] [address] GFR/1.73 sq M.predicted among blacks MDRD (S/P/Bld) [Vol rate/Area] mL/min/{1.73_m2} Normal >60 [facility] Comment on above: Performed By: #### C OVAG #### [facility] [address] [place] [address] Glucose [Mass/Vol] 129 mg/dL High 70-100 [facility] Comment on above: Performed By: #### C OVAG #### [facility] [address] [place] [address] Potassium [Moles/Vol] 3.9 mmol/L Normal 3.5-5.1 [facility] Comment on above: Performed By: #### C OVAG #### [facility] [address] [place] [address] Protein [Mass/Vol] 7.0 g/dL Normal 6.3-8.2 [facility] Comment on above: Performed By: #### C OVAG #### [facility] [address] [place] [address] Sodium [Moles/Vol] 137 mmol/L Normal 135-145 [facility] Comment on above: Performed By: #### C OVAG #### [facility] [address] [place] [address] Urea nitrogen [Mass/Vol] 3 mg/dL Low 7-17 [facility] Comment on above: Performed By: #### C OVAG #### [facility] [address] [place] [address] Drugs of Abuseon 02-15-2021 Amphetamines, Ur Negative Normal [facility] Comment on above: Performed By: #### D RGA4 #### [facility] [address] [place] [address] Barbiturates, Ur Negative Normal [facility] Comment on above: Performed By: #### D RGA4 #### [facility] [address] [place] [address] Benzodiazepines, Ur Negative Normal [facility] Comment on above: Performed By: #### D RGA4 #### [facility] [address] [place] [address] Cocaine, Ur Negative Normal [facility] Comment on above: Performed By: #### D RGA4 #### [facility] [address] [place] [address] Methadone, Ur Negative Normal [facility] Comment on above: Performed By: #### D RGA4 #### [facility] [address] [place] [address] Opiates, Ur Negative Normal [facility] Comment on above: Performed By: #### D RGA4 #### [facility] [address] [place] [address] Oxycodone/Oxymorphine,Ur Negative Normal [facility] Comment on above: Performed By: #### D RGA4 #### [facility] [address] [place] [address] Phencyclidine (PCP), Ur Negative Normal [facility] Comment on above: Result Comment: The [...] order. Performed By: #### D RGA4 #### [facility] [address] [place] [address] ED Provider Noteon ED Provider Note That [facility] Department Encounter Janis HOYT ED Patient: Maria [...] We have contacted the detox unit at [facility] who will accept this patient [...] are mis-transcribed.) CATALINO MUJICA MD Acute Care [facility] Catalino Mujica MD 02/15/21 1837 [facility] ED Provider Note [facility] ED eMERGENCY dEPARTMENT eNCOUnter Pt Name: Maria De Jesus Hogan Birthdate 1965 Date of evaluation: 02/15/2021 Provider: Shelly Clarke APRN - [employer]AD[employer]ER This patient was seen in conjunction with Dr. Mujica CHIEF COMPLAINT Chief Complaint Patient presents with ? Alcohol Problem HISTORY OF PRESENT ILLNESS (Location/Symptom, Timing/Onset,Context/S etting, Quality, Duration, Modifying Factors, Severity) Note limiting factors. HPI Maria De Jesus Hogan is a 55 y.o. male who presents to the emergency department with alcohol intoxication and requesting alcohol detox. Patient states he was admitted at [place] a few years ago was sober for [...] Neurological: Negative for dizziness, light-headedness and headaches. Psychiatric/Behavioral : Negative for confusion. All other systems reviewed [...] and Family: Not on file ? Attends Taoist Services: Not on file ? Active Member [...] in t (more content not included)... Normal [facility] Ethanol Serum/Plasmaon 02-15 Ethanol-Serum/Plasma 0.288 g/dL High 0.000-0.010 [facility] Comment on above: Result Comment: NOTE : This result is for medical treatment only. Analysis performed using non-forensic procedures. Performed By: #### C OVAG #### [facility] [address] [place] [address] Hemogram w/ Autodiffon 02-15 Abs Baso Cnt 0.1 10*3/uL Normal 0.0-0.2 [facility] Comment on above: Performed By: #### C OVAG #### [facility] [address] [place] [address] Abs Neutrophile Cnt 3.2 10*3/uL Normal 1.8-7.0 [facility] Comment on above: Performed By: #### C OVAG #### [facility] [address] [place] [address] Basophils/100 WBC (Bld) 1.1 % Normal 0.0-2.0 [facility] Comment on above: Performed By: #### C OVAG #### [facility] [address] [place] [address] Eosinophils (Bld) [#/Vol] 0.1 10*3/uL Normal 0.0-0.5 [facility] Comment on above: Performed By: #### C OVAG #### [facility] [address] [place] [address] Eosinophils/100 WBC (Bld) 2.4 % Normal 1.0-6.0 [facility] Comment on above: Performed By: #### C OVAG #### [facility] [address] [place] [address] Erythrocyte distribution width (RBC) [Ratio] 14.2 % Normal 11.5-14.5 [facility] Comment on above: Performed By: #### C OVAG #### [facility] [address] [place] [address] Granulocytes/100 WBC (Bld) 55.7 % Normal 40.0-80.0 [facility] Comment on above: Performed By: #### C OVAG #### [facility] [address] [place] [address] Hematocrit (Bld) [Volume fraction] 45.9 % Normal 40.0-52.0 [facility] Comment on above: Performed By: #### C OVAG #### [facility] [address] [place] [address] Hemoglobin (Bld) [Mass/Vol] 15.7 g/dL Normal 13.0-18.0 [facility] Comment on above: Performed By: #### C OVAG #### [facility] [address] [place] [address] Lymphocytes (Bld) [#/Vol] 1.7 10*3/uL Normal 1.0-4.3 [facility] Comment on above: Performed By: #### C OVAG #### [facility] [address] [place] [address] Lymphocytes/100 WBC (Bld) 29.7 % Normal 20.0-40.0 [facility] Comment on above: Performed By: #### C OVAG #### [facility] [address] [place] [address] MCH (RBC) [Entitic mass] 34.2 pg High 26.0-34.0 [facility] Comment on above: Performed By: #### C OVAG #### [facility] [address] [place] [address] MCHC 34.2 % Normal 32.0-36.0 [facility] Comment on above: Performed By: #### C OVAG #### [facility] [address] [place] [address] MCV (RBC) [Entitic vol] 99.9 fL High 80.0-98.0 [facility] Comment on above: Performed By: #### C OVAG #### [facility] [address] [place] [address] Monocytes (Bld) [#/Vol] 0.6 10*3/uL Normal 0.0-0.8 [facility] Comment on above: Performed By: #### C OVAG #### [facility] [address] [place] [address] Monocytes/100 WBC (Bld) 11.1 % High 2.0-10.0 [facility] Comment on above: Performed By: #### C OVAG #### [facility] [address] [place] [address] Platelet mean volume (Bld) [Entitic vol] 6.6 fL Low 7.4-10.4 [facility] Comment on above: Performed By: #### C OVAG #### [facility] [address] [place] [address] Platelets (Bld) [#/Vol] 230 10*3/uL Normal 140-440 [facility] Comment on above: Performed By: #### C OVAG #### [facility] [address] [place] [address] RBC (Bld) [#/Vol] 4.59 10*6/uL Normal 4.40-5.90 [facility] Comment on above: Performed By: #### C OVAG #### [facility] [address] [place] [address] WBC (Bld) [#/Vol] 5.7 10*3/uL Normal 3.6-10.7 [facility] Comment on above: Performed By: #### C OVAG #### [facility] [address] [place] [address] SARS-CoV-2 Antigenon 021 SARS-CoV-2 Antigen Negative Normal Negative [facility] Comment on above: Result Comment: A negative result does not rule out the possibility of SARS-CoV-2 infection. NAAT-based methods should be considered for symptomatic patients presenting greater than seven days after onset of symptoms. Method: Lateral flow immunoassay. Fact sheets for healthcare providers and patients can be found at the following sites: https://www.[employer].gov/media/947264/download https://www.[employer].gov/media/288909/download Performed By: #### C OVAG #### [facility] [address] [place] [address] CR Chest PA/LATon 11-18-2020 CR Chest PA/LAT Patient Name: MARIA DE JESUS HOGAN Diagnostic Radiology ACCESSION EXAM DATE/TIME PROCEDURE ORDERING PROVIDER [id number] 11/18/2020 13:11 EDT CR Chest PA and LAT MD RASHEED DIANA CPT code 52335 Reason For Exam (CR Chest PA and [...] Transcribed Date and Time: 11/18/2020 2:41 Normal [facility] XR CHEST (2 VW)Ordered By: Sharmila Rasheed on 11-18-2020 Patient Name: MARIA DE JESUS HOGAN Diagnostic Radiology ACCESSION EXAM DATE/TIME PROCEDURE ORDERING PROVIDER [id number] 11/18/2020 13:11 EDT CR Chest PA & LAT MD KATHYA, LYNDA CPT code 05897 Reason For Exam (CR Chest PA & [...] and Time: 11/18/2020 2:41 [facility] Work Phone: [facility] From [facility] - 11/18/2020 2:41 PM EDT Patient Name: MARIA DE JESUS HOGAN Diagnostic Radiology ACCESSION EXAM DATE/TIME PROCEDURE ORDERING PROVIDER [id number] 11/18/2020 13:11 EDT CR Chest PA & LAT MD KATHYA, LYNDA CPT code 03010 Reason For Exam (CR Chest PA & [...] and Time: 11/18/2020 2:41 [facility] Work Phone: [phone] [facility] Work Phone: [phone] Metabolic Pane lOrdered By: Lynda Rasheed on 09-01-2020 Albumin [Mass/Vol] 4.3 g/dL 3.5 - 5.0 g/dL [facility] Work Phone: [phone] ALP (Bld) [Catalytic activity/Vol] 92 U/L 38 - 126 U/L [facility] Work Phone: [phone] ALT [Catalytic activity/Vol] 32 U/L 0 - 49 U/L [facility] Work Phone: [phone] Comment on above: The ALT test is perf ormed by an updated assay method. Please note that the reference intervals have been changed and are now sex specific. Anion gap [Moles/Vol] 8 mmol/L 3 - 13 mmol/L [facility] Work Phone: [phone] AST [Catalytic activity/Vol] 33 U/L 15 - 46 U/L [facility] Work Phone: [phone] Bilirubin [Mass/Vol] 0.4 mg/dL 0.2 - 1 .3 mg/dL [facility] Work Phone: [phone] Calcium [Mass/Vol] 9.0 mg/dL 8.4 - 10. 4 mg/dL [facility] Work Phone: [phone] Chloride [Moles/Vol] 101 mmol/L 98 - 10 7 mmol/L [facility] Work Phone: [phone] CO2 [Moles/Vol] 27 mmol/L 22 - 30 mmol/L [facility] Work Phone: [phone] Creatinine [Mass/Vol] 0.7 mg/dL 0.52 - 1.25 mg/dL [facility] Work Phone: [phone] EGFR IF NonAfrican [place] >90.0 >60 mL/min [facility] Work Phone: Comment on above: KDIGO guidelines pro vide [...] fraction] 7.6 g/dL 6.3 - 8.2 g/dL [facility] Work Phone: [phone] GFR/1.73 sq M.predicted among blacks MDRD (S/P/Bld) [Vol rate/Area] mL/min/{1.73_m2} >60 mL/min [facility] Work Phone: [phone] Glucose [Mass/Vol] 106 mg/dL High 70 - 100 mg/dL [facility] Work Phone: [phone] Potassium [Moles/Vol] 4.1 mmol/L 3.5 - 5.1 mmol/L [facility] Work Phone: [phone] Sodium [Moles/Vol] 136 mmol/L 135 - 145 mmol/L [facility] Work Phone: Urea nitrogen (BldV) [Mass/Vol] 7 mg/dL 7 - 20 mg/dL [facility] Work Phone: Lipid PanelOrdered By: Lynda Rasheed on 09-01-2020 Cholesterol [Mass/Vol] 285 mg/dL Abnormal <200 [facility] Work Phone: Cholesterol in HDL [Mass/Vol] 68 mg/dL High 40 - 60 mg/dL [facility] Work Phone: [phone] Cholesterol in LDL [Mass/Vol] 193 mg/dL Abnormal <100 [facility] Work Phone: [phone] Cholesterol.total/Choles terol in HDL [Mass ratio] 4 {ratio} [facility] Work Phone: [phone] Comment on above: Ref Range: < 3 Low Risk for CHD 3-6 Mod Risk for CHD > 6 High Risk for CHD Triglyceride [Mass/Vol] 120 mg/dL <150 [facility] Work Phone: [phone] No Panel InformationOrdered By: Lynda Rasheed on 09-01-2020 Interpretation and review of laboratory results Abnormal [facility] Work Phone: 1 Test Performed by [facility], [address] , [address] Work Phone: 1 [facility] Work Phone: 1 PSA, Prostatic Specific Anti genOrdered By: Lynda Rasheed on 09-01-2020 Prostatic Specific Ag 0.397 ng/mL <4.000 [facility] Work Phone: Comment on above: Testing performed on the uSamp0 using an immunometric methodology. Results obtained by different methods should not be used interchangeably. Test Performed by [facility], [facility] [address] , [address] Work Phone: 1 [facility] Work Phone: [phone] Basic Metabolic Panel w/ Ref santi to MGon 06-10-2020 Anion gap [Moles/Vol] 6 mmol/L 3 - 13 mmol/L [facility] Work Phone: [phone] Calcium [Mass/Vol] 8.3 mg/dL Low 8.4 - 10. 4 mg/dL [facility] Work Phone: [phone] Chloride [Moles/Vol] 95 mmol/L Low 98 - 10 7 mmol/L [facility] Work Phone: CO2 [Moles/Vol] 31 mmol/L High 22 - 30 mmol/L [facility] Work Phone: Creatinine [Mass/Vol] 0.71 mg/dL 0.52 - 1.25 mg/dL [facility] Work Phone: EGFR IF NonAfrican [place] >90.0 >60 mL/min [facility] Work Phone: [phone] Comment on above: KDIGO guidelines pro vide [...] MDRD (S/P/Bld) [Vol rate/Area] mL/min/{1.73_m2} >60 mL/min [facility] Work Phone: [phone] Glucose [Mass/Vol] 91 mg/dL 70 - 100 mg/dL [facility] Work Phone: [phone] Potassium [Moles/Vol] 3.8 mmol/L 3.5 - 5.1 mmol/L [facility] Work Phone: [phone] Sodium [Moles/Vol] 132 mmol/L Low 135 - 145 mmol/L [facility] Work Phone: [phone] Urea nitrogen [Mass/Vol] 3 mg/dL Low 7 - 20 mg/dL [facility] Work Phone: [phone] CBC auto differentialon 05-30 Absolute Baso # 0.0 10*3/uL 0.0 - 0.2 10*3/uL [facility] Work Phone: [phone] Absolute Neut # 2.1 10*3/uL 1.8 - 7.0 10*3/uL [facility] Work Phone: Basophils/100 WBC (Bld) 1.5 % 0.0 - 2.0 % [facility] Work Phone: Eosinophils (Bld) [#/Vol] 0.0 10*3/uL 0.0 - 0.5 10*3/uL [facility] Work Phone: [phone] Eosinophils/100 WBC (Bld) 1.3 % 1.0 - 6.0 % [facility] Work Phone: Erythrocyte distribution width (RBC) [Ratio] 15.4 % High 11.5 - 14.5 % [facility] Work Phone: Granulocytes/100 WBC (Bld) 66.1 % 40.0 - 80.0 % [facility] Work Phone: Hematocrit (Bld) [Volume fraction] 43.4 % 40.0 - 52.0 % [facility] Work Phone: Hemoglobin (Bld) [Mass/Vol] 14.9 g/dL 13.0 - 18.0 g/dL [facility] Work Phone: Interpretation and review of laboratory results Abnormal [facility] Work Phone: Lymphocytes (Bld) [#/Vol] 0.6 10*3/uL Low 1.0 - 4.3 10*3/uL [facility] Work Phone: Lymphocytes/100 WBC (Bld) 18.3 % Low 20.0 - 40.0 % [facility] Work Phone: MCH (RBC) [Entitic mass] 35.0 pg High 26. 0 - 34.0 pg [facility] Work Phone: MCHC (RBC) [Mass/Vol] 34.3 % 32.0 - 36.0 % [facility] Work Phone: MCV (RBC) [Entitic vol] 102.2 fL High 80.0 - 98.0 fL [facility] Work Phone: Monocytes (Bld) [#/Vol] 0.4 10*3/uL 0.0 - 0.8 10*3/uL [facility] Work Phone: [phone] Monocytes/100 WBC (Bld) 12.8 % High 2.0 - 10.0 % [facility] Work [phone] Platelet mean volume (Bld) [Entitic vol] 7.2 fL Low 7.4 - 10.4 fL [facility] Work Phone: [phone] Platelets (Bld) [#/Vol] 140 10*3/uL 140 - 440 10*3/uL [facility] Work Phone: RBC (Bld) [#/Vol] 4.24 10*6/uL Low 4.40 - 5.9 0 10*6/uL [facility] Work Phone: WBC (Bld) [#/Vol] 3.1 10*3/uL Low 3.6 - 10.7 10*3/uL [facility] Work Phone: 1 Test Performed by [facility], [address] [place] [address] [facility] Work Phone: Hepatic function panelon Albumin [Mass/Vol] 3.8 g/dL 3.5 - 5.0 g/dL [facility] Work Phone: 1 ALP [Catalytic activity/Vol] 124 U/L 38 - 126 U/L [facility] Work Phone: ALT [Catalytic activity/Vol] 229 U/L High 0 - 49 U/L [facility] Work Phone: Comment on above: The ALT test is perf ormed by an updated assay method. Please note that the reference intervals have been changed and are now sex specific. AST [Catalytic activity/Vol] 288 U/L High 15 - 46 U/L [facility] Work Phone: [phone] Bilirubin Ql (U) 0.8 mg/dL 0.2 - 1.3 mg/dL [facility] Work Phone: [phone] Bilirubin.direct [Mass/Vol] 0.0 mg/dL 0.0 - 0.3 mg/dL [facility] Work Phone: [phone] Protein [Mass/Vol] 6.7 g/dL 6.3 - 8.2 g/dL [facility] Work Phone: [phone] Iron and TIBCon 06-10-2020 Iron [Mass/Vol] 114 ug/dL 49 - 181 ug/dL [facility] Work Phone: [phone] Sat 75 % High 15 - 50 % [facility] Work Phone: [phone] TIBC 151 ug/dL Low 261 - 497 ug/dL [facility] Work Phone: [phone] Otheron 06-10-2020 Interpretation and review of laboratory results Abnormal [facility] Work Phone: [phone] Test Performed by [facility], [address] [place], [place] [address] [facility] Work Phone: [phone] APTTon 06-09-2020 aPTT Coag (Bld) [Time] 26.8 s 20.0 - 30.5 s [facility] Work Phone: [phone] Comment on above: NOTE: The therapeuti c time for Heparin anticoagulation, based on Xa activity inhibition, is an APTT of 46-80 seconds. Comprehensive Metabolic Pane arnulfo 06-09-2020 Albumin [Mass/Vol] 4.4 g/dL 3.5 - 5.0 g/dL [facility] Work Phone: [phone] ALP [Catalytic activity/Vol] 144 U/L High 38 - 126 U/L [facility] Work Phone: [phone] ALT [Catalytic activity/Vol] 260 U/L High 0 - 49 U/L [facility] Work Phone: [phone] Comment on above: The ALT test is perf ormed by an updated assay method. Please note that the reference intervals have been changed and are now sex specific. Anion gap [Moles/Vol] 15 mmol/L High 3 - 13 mmol/L [facility] Work Phone: [phone] AST [Catalytic activity/Vol] 335 U/L High 15 - 46 U/L [facility] Work Phone: [phone] Bilirubin Ql (U) 0.7 mg/dL 0.2 - 1.3 mg/dL [facility] Work Phone: [phone] Calcium [Mass/Vol] 9.1 mg/dL 8.4 - 10. 4 mg/dL [facility] Work Phone: [phone] Chloride [Moles/Vol] 99 mmol/L 98 - 10 7 mmol/L [facility] Work Phone: [phone] CO2 [Moles/Vol] 23 mmol/L 22 - 30 mmol/L [facility] Work Phone: [phone] Creatinine [Mass/Vol] 0.7 mg/dL 0.52 - 1.25 mg/dL [facility] Work Phone: [phone] EGFR IF NonAfrican [place] >90.0 >60 mL/min [facility] Work Phone: [phone] Comment on above: KDIGO guidelines pro vide [...] MDRD (S/P/Bld) [Vol rate/Area] mL/min/{1.73_m2} >60 mL/min [facility] Work Phone: [phone] Glucose [Mass/Vol] 99 mg/dL 70 - 100 mg/dL [facility] Work Phone: [phone] Potassium [Moles/Vol] 4.0 mmol/L 3.5 - 5.1 mmol/L [facility] Work Phone: [phone] Protein [Mass/Vol] 7.0 g/dL 6.3 - 8.2 g/dL [facility] Work Phone: [phone] Sodium [Moles/Vol] 137 mmol/L 135 - 145 mmol/L [facility] Work Phone: [phone] Urea nitrogen [Mass/Vol] 4 mg/dL Low 7 - 20 mg/dL [facility] Work Phone: [phone] EKG 12 Lead - Chest Painon 0 06-09-2020 Jon[facility], [facility] Incoming Cardiology Results From [facility] - 06/09/2020 10:32 AM EST [facility] Test Date: 2020-06-09 Pat Name: Maria De Jesus [place] Department: ED Room: 04 Gender: M Pillow[address] Sewer: 630 : 1965 Requested By: ANTONIO MAURO Order Number: [id number] Reading MD: Paulette Reyes Measurements Intervals [place] Rate: 115 P: 77 RI: 160 QRS: 85 QRSD: 86 T: 44 QT: 332 QTc: 460 Interpretive Statements SINUS TACHYCARDIA PROBABLE LEFT ATRIAL ABNORMALITY BORDERLINE LOW VOLTAGE IN FRONTAL LEADS NONSPECIFIC T ABNORMALITIES, ANTERIOR LEADS Compared to ECG 10/03/2016 16:40:36 T-wave abnormality now present Sinus rhythm no longer present Electronically Signed On 06-09-2020 10:31:12 EST by Paulette Reyes [facility] Work Phone: [facility] Test Date: 2020-06-09 Pat Name: Maria De Jesus [place] Department: ED Room: 04 Gender: M Pill[address] Sewer: 630 : 1965 Requested By: ANTONIO MAURO Order Number: [id number] Reading : Paulette Reyes Measurements Intervals [place] Rate: 115 P: 77 RI: 160 QRS: 85 QRSD: 86 T: 44 QT: 332 QTc: 460 Interpretive Statements SINUS TACHYCARDIA PROBABLE LEFT ATRIAL ABNORMALITY BORDERLINE LOW VOLTAGE IN FRONTAL LEADS NONSPECIFIC T ABNORMALITIES, ANTERIOR LEADS Compared to ECG 10/03/2016 16:40:36 T-wave abnormality now present Sinus rhythm no longer present Electronically Signed On 06-09-2020 10:31:12 EST by Paulette Reyes [facility] Work Phone: Ethanolon 06-09-2020 Ethanol Lvl 0.225 g/dL High 0.000 - 0.010 g/dL [facility] Work Phone: Comment on above: NOTE: This result is for medical treatment only. Analysis performed using non-forensic procedures. FOLATEon 06-09-2020 Folate 9.4 ng/mL 2.8 - 20.0 ng/mL [facility] Work Phone: Hemogram (CBC) w/Auto Diffon 06-09-2020 Absolute Baso # 0.0 10*3/uL 0.0 - 0.2 10*3/uL [facility] Work Phone: Absolute Neut # 1.2 10*3/uL Low 1.8 - 7.0 10*3/uL [facility] Work Phone: [phone] Basophils/100 WBC (Bld) 1.0 % 0.0 - 2.0 % [facility] Work Phone: Eosinophils (Bld) [#/Vol] 0.0 10*3/uL 0.0 - 0.5 10*3/uL [facility] Work Phone: Eosinophils/100 WBC (Bld) 1.3 % 1.0 - 6.0 % [facility] Work Phone: Erythrocyte distribution width (RBC) [Ratio] 15.5 % High 11.5 - 14.5 % [facility] Work Phone: Granulocytes/100 WBC (Bld) 42.8 % 40.0 - 80.0 % [facility] Work Phone: Hematocrit (Bld) [Volume fraction] 48.0 % 40.0 - 52.0 % [facility] Work Phone: Hemoglobin (Bld) [Mass/Vol] 16.4 g/dL 13.0 - 18.0 g/dL [facility] Work Phone: Interpretation and review of laboratory results Abnormal [facility] Work Phone: Lymphocytes (Bld) [#/Vol] 1.0 10*3/uL 1.0 - 4.3 10*3/uL [facility] Work Phone: Lymphocytes/100 WBC (Bld) 34.0 % 20.0 - 40.0 % [facility] Work Phone: MCH (RBC) [Entitic mass] 34.6 pg High 26. 0 - 34.0 pg [facility] Work Phone: MCHC (RBC) [Mass/Vol] 34.1 % 32.0 - 36.0 % [facility] Work Phone: [phone] MCV (RBC) [Entitic vol] 101.4 fL High 80.0 - 98.0 fL [facility] Work Phone: Monocytes (Bld) [#/Vol] 0.6 10*3/uL 0.0 - 0.8 10*3/uL [facility] Work Phone: 1 Monocytes/100 WBC (Bld) 20.9 % High 2.0 - 10.0 % [facility] Work Phone: 1 Platelet mean volume (Bld) [Entitic vol] 6.7 fL Low 7.4 - 10.4 fL [facility] Work Phone: 1 Platelets (Bld) [#/Vol] 204 10*3/uL 140 - 440 10*3/uL [facility] Work Phone: RBC (Bld) [#/Vol] 4.74 10*6/uL 4.40 - 5.9 0 10*6/uL [facility] Work Phone: 1 WBC (Bld) [#/Vol] 2.9 10*3/uL Low 3.6 - 10.7 10*3/uL [facility] Work Phone: 1 Test Performed by [facility], [address] [facility] Work Phone: Lactic Acid, Plasmaon 2020 Interpretation and review of laboratory results Abnormal [facility] Work Phone: Lactate [Moles/Vol] 2.9 mmol/L Critically high 0.7 - 2.0 mmol/L [facility] Work Phone: 1 Test Performed by [facility], [address] [place], [place] [address] Work Phone: Lipaseon 06-09-2020 Lipase [Catalytic activity/Vol] 206 U/L 23 - 300 U/L [facility] Work Phone: 1 Otheron 06-09-2020 Test Performed by [facility], [address] [place], [place] [address] [place], [place] [address] Work Phone: Test Performed by [facility], [address], [place], [place] [address] [facility] Work Phone: [phone] Interpretation and review of laboratory results Abnormal [facility] Work Phone: Test Performed by [facility], [address] , [place], [place] [address] [facility] Work Phone: [phone] Protime-INRon 06-09-2020 INR Coag (PPP) [Relative time] 1.0 {INR} [facility] Work Phone: Comment on above: Recommended Anticoag [...] 10.6 s 9.0 - 1 2.0 s [facility] Work Phone: Comment on above: . Vitamin B12on 06-09-2020 Cobalamin (Vitamin B12) [Mass/Vol] 830 pg/mL 239 - 931 pg/mL [facility] Work Phone: XR CHEST PORTABLEon 06-10-19 [facility] Incoming Radiology Results From [facility] - 06/09/2020 9:11 AM EST Patient Name: MARIA DE JESUS HOGAN Diagnostic Radiology ACCESSION EXAM DATE/TIME PROCEDURE ORDERING PROVIDER [id number] 06/09/2020 09:07 EST CR Chest Portable MD MAURO VIJAY CPT code 28266 Reason For Exam (CR Chest Portable) vomiting [...] RISA Transcribed Date and Time: 06/09/2020 9:11 [facility] Work Phone: Patient Name: MARIA DE JESUS HOGAN Diagnostic Radiology ACCESSION EXAM DATE/TIME PROCEDURE ORDERING PROVIDER [id number] 06/09/2020 09:07 EST CR Chest Portable MD MAURO VIJAY CPT code 33556 Reason For Exam (CR Chest Portable) vomiting [...] RISA Transcribed Date and Time: 06/09/2020 9:11 [facility] Work Phone: Hematologyon 08-31-2019 Basophils/100 WBC (Bld) 0.7 % 0 - 2 % [place] Eosinophils (Bld) [#/Vol] 0.0 10*3/uL 0 - 0.5 10*3/uL [place] Eosinophils/100 WBC (Bld) 0.6 % Low 1 - 6 % [place] Hematocrit (Bld) [Volume fraction] 50.3 % 40 - 52 % [place] Hemoglobin (Bld) [Mass/Vol] 17.2 g/dL 13 - 18 g/dL [place] Lymphocytes (Bld) [#/Vol] 2.2 10*3/uL 1 - 4.3 10*3/uL [place] Lymphocytes/100 WBC (Bld) 34.6 % 20 - 40 % [place] MCH (RBC) [Entitic mass] 34.9 pg High 26 - 34 pg [place] MCV (RBC) [Entitic vol] 102.2 fL High 80 - 98 fL [place] Monocytes (Bld) [#/Vol] 0.5 10*3/uL 0 - 0.8 10*3/uL [place] Monocytes/100 WBC (Bld) 7.5 % 2 - 10 % [place] Platelets (Bld) [#/Vol] 330 10*3/uL 140 - 440 10*3/uL [place] RBC (Bld) [#/Vol] 4.92 10*6/uL 4.4 - 5.9 10*6/uL [place] WBC (Bld) [#/Vol] 6.5 10*3/uL 3.6 - 10.7 10*3/uL [place] Metabolic Panelon 08-31-2019 Albumin [Mass/Vol] 4.8 g/dL 3.5 - 5 g/dL [place] ALP [Catalytic activity/Vol] 171 U/L High 38 - 126 U/L [place] ALT [Catalytic activity/Vol] 98 U/L High 0 - 49 U/L [place] Comment on above: The ALT test is perf ormed by an updated assay method. Please note that the reference intervals have been changed and are now sex specific. Anion gap [Moles/Vol] 17 mmol/L [place], [place] AST [Catalytic activity/Vol] 107 U/L High 15 - 46 U/L [place] Calcium [Mass/Vol] 8.8 mg/dL 8.4 - 10. 4 mg/dL [place] Chloride [Moles/Vol] 98 mmol/L 98 - 10 7 mmol/L [place] CO2 [Moles/Vol] 22 mmol/L 22 - 30 mmol/L [place] Creatinine [Mass/Vol] 0.68 mg/dL 0.52 - 1.25 mg/dL [place] GFR/1.73 sq M predicted among blacks MDRD (S/P/Bld) [Vol rate/Area] mL/min/{1.73_m2} >60 mL/min [place] Glucose [Mass/Vol] 90 mg/dL 70 - 100 mg/dL [place] Potassium [Moles/Vol] 4.5 mmol/L 3.5 - 5.1 mmol/L [place] Protein [Mass/Vol] 8.1 g/dL 6.3 - 8.2 g/dL [place] Sodium [Moles/Vol] 136 mmol/L 135 - 145 mmol/L [place] Urea nitrogen [Mass/Vol] 6 mg/dL Low 7 - 20 mg/dL [place] Otheron 08-31-2019 Amphetamines, urine Negative [place] Barbiturates, Ur Negative [place] Benzodiazepine Ur Qual Negative [place] Cocaine Metabolites, Ur Negative [place] Methadone, Urine Negative [place] Opiates, Urine Negative [place] Oxycodone Screen, Ur Negative [place] PCP, Urine Negative [place] Comment on above: The expected value [...] confirmation under separate order. Test Performed by [facility], [address] [place] [address] [place] Bilirubin Ql (U) 0.7 mg/dL 0.2 - 1.3 mg/dL [place] EGFR IF NonAfrican [place] >90.0 >60 mL/min [place] Comment on above: KDIGO guidelines pro [...] 0.284 g/dL High 0 - 0.01 g/dL [place] Comment on above: NOTE: This result is for medical treatment only. Analysis performed using non-forensic procedures. Interpretation and review of laboratory results Abnormal [place] Lipase [Catalytic activity/Vol] 140 U/L 23 - 300 U/L [place] [facility], [address] [place] [address] [place], [place] Absolute Baso # 0.0 10*3/uL 0 - 0.2 10*3/uL [place] Absolute Neut # 3.7 10*3/uL 1.8 - 7 10*3/uL [place] Erythrocyte distribution width (RBC) [Ratio] 15.1 % High 11.5 - 14.5 % [place] Granulocytes/100 WBC (Bld) 56.6 % 40 - 80 % [place] Interpretation and review of laboratory results Abnormal [place] MCHC (RBC) [Mass/Vol] 34.2 % 32 - 36 % [place] Platelet mean volume (Bld) [Entitic vol] 6.6 fL Low 7.4 - 10.4 fL [place] Test Performed by [facility], [address] [place] [address], [place] [id number] [place] CBC Auto Differentialon 01-30 Absolute Baso # 0.0 10*3/uL 0 - 0.2 10*3/uL [place] Absolute Neut # 4.8 10*3/uL 1.8 - 7 10*3/uL [place] Basophils/100 WBC (Bld) 0.5 % 0 - 2 % [place] Eosinophils (Bld) [#/Vol] 0.1 10*3/uL 0 - 0.5 10*3/uL [place] Eosinophils/100 WBC (Bld) 1.6 % 1 - 6 % [place] Erythrocyte distribution width (RBC) [Ratio] 13.6 % 11.5 - 14.5 % [place], [place] Granulocytes/100 WBC (Bld) 65.8 % 40 - 80 % [place] Hematocrit (Bld) [Volume fraction] 46.7 % 40 - 52 % [place] Hemoglobin (Bld) [Mass/Vol] 16.2 g/dL 13 - 18 g/dL [place] Interpretation and review of laboratory results Abnormal [place] Lymphocytes (Bld) [#/Vol] 1.7 10*3/uL 1 - 4.3 10*3/uL [place] Lymphocytes/100 WBC (Bld) 24.0 % 20 - 40 % [place] MCH (RBC) [Entitic mass] 32.0 pg 26 - 34 pg [place] MCHC (RBC) [Mass/Vol] 34.7 % 32 - 36 % [place] MCV (RBC) [Entitic vol] 92.4 fL 80 - 98 fL [place], [place] Monocytes (Bld) [#/Vol] 0.6 10*3/uL 0 - 0.8 10*3/uL [place] Monocytes/100 WBC (Bld) 8.1 % 2 - 10 % [place] Platelet mean volume (Bld) [Entitic vol] 6.4 fL Low 7.4 - 10.4 fL [place] Platelets (Bld) [#/Vol] 419 10*3/uL 140 - 440 10*3/uL [place] RBC (Bld) [#/Vol] 5.06 10*6/uL 4.4 - 5.9 10*6/uL [place] WBC (Bld) [#/Vol] 7.3 10*3/uL 3.6 - 10.7 10*3/uL [place] Test Performed by [facility], [address] [place], [place] [address] , [address] Comprehensive Metabolic Pane arnulfo 02-14-2019 Albumin [Mass/Vol] 4.2 g/dL 3.5 - 5 g/dL [place] ALP [Catalytic activity/Vol] 107 U/L 38 - 126 U/L [place] ALT [Catalytic activity/Vol] 41 U/L 13 - 69 U/L [place] Anion gap [Moles/Vol] 9 mmol/L [place] AST [Catalytic activity/Vol] 20 U/L 15 - 46 U/L [place] Bilirubin Ql (U) 0.4 mg/dL 0.2 - 1.3 mg/dL [place] Calcium [Mass/Vol] 9.9 mg/dL 8.4 - 10. 4 mg/dL [place] Chloride [Moles/Vol] 101 mmol/L 98 - 10 7 mmol/L [place] CO2 [Moles/Vol] 28 mmol/L 22 - 30 mmol/L [place] Creatinine [Mass/Vol] 0.82 mg/dL 0.52 - 1.25 mg/dL [place] EGFR IF NonAfrican [place] >60.0 >60 mL/min [place] Comment on above: Source- MDRD equatio n with creatinine calibration to IDMS(NKDEP) eGFR not recommended for drug dose adjustment GFR/1.73 sq M predicted among blacks MDRD (S/P/Bld) [Vol rate/Area] mL/min/{1.73_m2} >60 mL/min [place] Glucose [Mass/Vol] 89 mg/dL 70 - 100 mg/dL [place] Potassium [Moles/Vol] 4.6 mmol/L 3.5 - 5.1 mmol/L [place] Protein [Mass/Vol] 6.9 g/dL 6.3 - 8.2 g/dL [place] Sodium [Moles/Vol] 138 mmol/L 135 - 145 mmol/L [place] Urea nitrogen [Mass/Vol] 9 mg/dL 7 - 20 mg/dL [place] Lipid Panelon 02-14-2019 Cholesterol [Mass/Vol] 262 mg/dL Abnormal <200 [place] Cholesterol in HDL [Mass/Vol] 43 mg/dL 40 - 60 mg/dL [place] Cholesterol in LDL [Mass/Vol] 187 mg/dL Abnormal <100 [place] Cholesterol.total/Choles terol in HDL [Mass ratio] 6 {ratio} [place] Comment on above: Ref Range: < 3 Low Risk for CHD 3-6 Mod Risk for CHD > 6 High Risk for CHD Interpretation and review of laboratory results Abnormal [place] Triglyceride [Mass/Vol] 162 mg/dL Abnormal <150 [place] Otheron 02-14-2019 Test Performed by [facility], [address] , [address] CBC and Differentialon 02-14 Abs Baso <0.03 Normal <0.11 [facility] Comment on above: Performed By: #### C BCSADAF CMP ####[facility] [address] [phone] Abs [place] 0.89 k/uL High <0.87 [facility] Comment on above: Performed By: #### C BCDIBasim, CMP ####[place] [address] Abs Neut 2.94 k/uL Normal 1.45-7.50 [facility] Comment on above: Performed By: #### C BCDIF, CMP ####[place] [address] Basophils/100 WBC (Bld) 0.3 % Normal [facility] Comment on above: Performed By: #### C BCDIF, CMP ####[place] [address] Eosinophils (Bld) [#/Vol] 0.16 10*3/uL Normal <0.46 [facility] Comment on above: Performed By: #### C BCDIF, CMP ####[place] [address] Eosinophils/100 WBC (Bld) 2.6 % Normal [facility] Comment on above: Performed By: #### C BCDIF, CMP ####[place] [address] Erythrocyte distribution width (RBC) [Ratio] 13.5 % Normal 11.5-15.0 [facility] Comment on above: Performed By: #### C BCDIF, CMP ####[place] [address] Hematocrit (Bld) [Volume fraction] 40.5 % Normal 39.0-51.0 [facility] Comment on above: Performed By: #### C BCDIF, CMP ####[place] [address] Hemoglobin (Bld) [Mass/Vol] 13.1 g/dL Normal 13.0-17.0 [facility] Comment on above: Performed By: #### C BCDIF, CMP ####[place] [address] Lymphocytes (Bld) [#/Vol] 2.09 10*3/uL Normal 1.00-4.00 [facility] Comment on above: Performed By: #### C BCDIF, CMP ####[place] [address] Lymphocytes/100 WBC (Bld) 34.3 % Normal [facility] Comment on above: Performed By: #### C BCDIF, CMP ####[facility] [address] [place] [address] MCH (RBC) [Entitic mass] 30.0 pG Normal 26.0-34.0 [facility] Comment on above: Performed By: #### C BCDIF, CMP ####[facility] [address] [place], [place] [phone] MCHC (RBC) [Mass/Vol] 32.3 g/dL Normal 30.5-36.0 [facility] Comment on above: Performed By: #### C BCDIF, CMP ####[facility] [address] [place] [address] MCV (RBC) [Entitic vol] 92.9 fL Normal 80.0-100.0 [facility] Comment on above: Performed By: #### C BCDIF, CMP ####[facility] [address] [place] [address] Monocytes/100 WBC (Bld) 14.6 % Normal [facility] Comment on above: Performed By: #### C BCDIF, CMP ####[facility] [address] [place], [place] [phone] Neutrophils/100 WBC (Bld) 48.2 % Normal [facility] Comment on above: Performed By: #### C BCDIF, CMP ####[facility] [address] [place] [address] Platelet mean volume (Bld) [Entitic vol] 9.1 fL Normal 9.0-12.7 [facility] Comment on above: Performed By: #### C BCDIF, CMP ####[facility] [address] [place], [place] [phone] Platelets (Bld) [#/Vol] 296 10*3/uL Normal 150-400 [facility] Comment on above: Performed By: #### C BCDIF, CMP ####[facility] [address] [place], [place] [phone] RBC (Bld) [#/Vol] 4.36 10*6/uL Normal 4.20-6.00 [facility] Comment on above: Performed By: #### C BCDIF, CMP ####[facility] [address] [place] [phone] WBC (Bld) [#/Vol] 6.10 10*3/uL Normal 3.70-11.00 [facility] Comment on above: Performed By: #### C BCDIF, CMP ####[facility] [address] [place] [phone] CNCOon 02-14-2018 CNCO Letter Text February 14, 2018 Maria De Jesus Hogan [address] [facility] [address] Dear Mr. Hogan, The nurses and staff of [facility] hope this letter finds you feeling [...] free to contact me, Geneva Farooq RN ([phone]) or email me at, [email or web address] Additionally, you will receive a survey in [...] participation and thank you for choosing the [facility] for your health needs. Sincerely, Nurse Appliance Tester: Geneva Farooq RN ([phone]) [facility] Unit: 2 [place] Letter Text February 14, 2018 Department of Hospital Medicine [address] [place] [address] Regarding: Maria De Jesus Hogan (: 1965) Dear Dr. Rasheed: A patient of your practice, Maria De Jesus Hogan, was admitted on 02/13/2018 to [facility] under the services of the Department of Hospital Medicine, and is currently under the care of Dr. Arredondo. We look forward to collaborating with you regarding his care. If you have any questions or concerns, please call us in the Department of Hospital Medicine at [facility], at [phone]. Best Regards, Larry Starr Letter Text February 14, 2018 Department of Hospital Medicine [address] [facility] [id number] Re: Marai De Jesus Farr Samira Dear Dr. Rasheed: A patient of your practice, Maria De Jesus Hogan (: 1965) was treated at [facility] under the care of the [facility] Department of Hospital Medicine, and discharged on 02/14/2018. A transcribed discharge summary should be forthcoming promptly. If you need additional information or assistance, you may contact the Department of Hospital Medicine at [phone] during regular business hours, and we?ll be happy to assist you. Best Regards, Larry Burnett [facility] Normal [facility] CNDSon 02-14-2018 CNDS HNO ID: [id number] Author: Uriel Arredondo MD Service: Hospital Medicine Author Type: Physician Type: Discharge Summaries Filed: 02/14/2018 11:01 AM Note Text: Attending Note I have personally performed a face to face assessment of the patient and have reviewed the PA/CARTON INSPECTOR note. 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 Exam is inconsistent with no Babinski and alterations in his facial weakness with noxious stimuli prior similar episodes Assessment/Plan are reviewed with neurology and this seems to be conversion type reaction as the patient been scheduled for discharge from the longterm but was not released because of his noncompliance he did not get the early release on the day prior to admission and was going to have to spend another month to longterm. Evaluation with EEG MR I and CTA [...] after being found on floor of your longterm cell. You were evaluated in the ER [...] medications on discharge. You can return to longterm without any restrictions. You should follow up [...] THIS TIME: No pending results Discharge Disposition Penitentiary Activity When You Leave the Hospital Resume [...] weeks Patient/Parents to call for appointment?: Yes Lynad Rasheed [phone] [address] [facility] [address] [facility] [address] PCP Requested Referral Additional Provider to Provider Information: Patient admitted for left sided weakness after being found on floor of longterm cell. Has reported history of stroke abut [...] No new medications on discharge. Return to longterm without any restrictions. Assessment AND Plan, all Hosp Problems Active Hospital Problems as of 02/14/2018 Noted - Resolved Hospital Conversion reaction 02/13/2018 - Present Current Assessment AND Plan Assessment: Had unspecified type of stoke about 10 years ago with minor residual left sided weakness since event. Patient having increased left sided weakness today with right sided headache. Found on floor of longterm cell this morning. Neuro consulted in ED. [...] shows normal wave form. PLAN: -Return to longterm -Follow up with PCP in 1 month -Follow up with [facility] with continued symptoms. Weakness of extremity 02/13/2018 - Present Current Assessment AND Plan Assessment: Had unspecified type of stoke about 10 years ago with minor residual left sided weakness since event. Patient having increased left sided weakness today with right sided headache. Found on floor of longterm cell this morning. Neuro consulted in ED. Patient is not appropriate for TPA. CT of head and CT negative for acute intracranial process. Report from officer bedside states that patient has been seen several times at other facilities for similar complaint over the last several month during current incarceration. PLAN: -Discharge to longterm History of TIA (transient ischemic attack) and stroke 02/13/2018 - Present Current Assessment AND Plan Assessment: Had unspecified type of stoke about 10 years ago with minor residual left sided weakness since event. Patient having increased left sided weakness today with right sided headache. Found on floor of longterm cell this morning. Neuro consulted in ED. Patient is not appropriate for TPA. CT of head and CT negative for acute intracranial process. Report from officer bedside states that patient has been seen several times at other facilities for similar complaint over the last several month during current incarceration. MRI shows no acute or remote areas of infarct. PLAN: -Return to longterm -Follow up with PCP in 1 month -Follow up with [facility] for counseling if symptom persist. BPH (benign prostatic hyperplasia) 02/13/2018 - Present Current Assessment AND Plan Assessment: Currently controlled PLAN: -Continue flomax Resolved Hospital Problems as of 02/14/2018 None LABS AND PROCEDURES PENDING AT DISCHARGE: None FOLLOW-UP APPOINTMENTS ALREADY SCHEDULED WITH A [facility] PROVIDER: No future appointments. ALLERGIES No Known [...] February 14, 2018 TIME: 9:28 AM Normal [facility] Comp Metabolic Panelon 02-14 Albumin [Mass/Vol] 3.9 g/dL Normal 3.9-4.9 [facility] Comment on above: Performed By: #### C SHADY CMP ####[facility] [address] [place] [address] ALP [Catalytic activity/Vol] 85 U/L Normal 38-113 [facility] Comment on above: Performed By: #### C SHADY CMP ####[facility] [address] [place] [address] ALT [Catalytic activity/Vol] 14 U/L Normal 10-54 [facility] Comment on above: Performed By: #### C SHADY CMP ####[facility] [address] [place] [address] Anion gap [Moles/Vol] 9 mmol/L Normal 9-18 [facility] Comment on above: Performed By: #### C BCSADAF CMP ####[facility] [address] [place] [address] AST [Catalytic activity/Vol] 14 U/L Normal 14-40 [facility] Comment on above: Performed By: #### C BCSADAF CMP ####[facility] [address] [place] [address] Bilirubin [Mass/Vol] 0.4 mg/dL Normal 0.2-1.3 [facility] Comment on above: Performed By: #### C BCDIF, CMP ####[facility] [address] [place] [address] Calcium [Mass/Vol] 9.0 mg/dL Normal 8.5-10.2 [facility] Comment on above: Performed By: #### C BCDIF, CMP ####[facility] [address]2224 [place] [address] Chloride [Moles/Vol] 103 mmol/L Normal 97-105 [facility] Comment on above: Performed By: #### C BCDIF, CMP ####[facility] [address] [place] [address] CO2 [Moles/Vol] 30 mmol/L Normal 22-30 [facility] Comment on above: Performed By: #### C BCDIF, CMP ####[facility] [address]hfwx6514 [place] [address] Creatinine [Mass/Vol] 0.81 mg/dL Normal 0.73-1.22 [facility] Comment on above: Performed By: #### C BCDIF, CMP ####[facility] [address] [place] [address] eGFR- Amer. >60 Normal [facility] Comment on above: Performed By: #### C BCDIF, CMP ####[facility] [address] [place] [address] GFR/1.73 sq M predicted among non-blacks MDRD (S/P/Bld) [Vol rate/Area] mL/min/{1.73_m2} Normal [facility] Comment on above: Result Comment: eGFR [...] reflect actual GFR. Performed By: #### C BCDIF, CMP ####[facility] [address] [place] [address] Glucose [Mass/Vol] 81 mg/dL Normal 74-99 [facility] Comment on above: Result Comment: The [place] Diabetes Association (ADA) provides guidance for cutoff [...] Standards of Medical Care in Diabetes 2016, [place] Diabetes Association. Diabetes Care. 2016.39(Suppl 1). Performed By: #### C BCDIF, CMP ####[facility] [address] [place] [address] Potassium [Moles/Vol] 4.3 mmol/L Normal 3.7-5.1 [facility] Comment on above: Performed By: #### C BCDIF, CMP ####[facility] [address] [place] [address] Protein [Mass/Vol] 6.1 g/dL Low 6.3-8.0 [facility] Comment on above: Performed By: #### C BCDIF, CMP ####[facility] [address] [place] [address] Sodium [Moles/Vol] 142 mmol/L Normal 136-144 [facility] Comment on above: Performed By: #### C BCDIF, CMP ####[facility] Ed[address]m4479 [place] [address] Urea nitrogen [Mass/Vol] 12 mg/dL Normal 9-24 [facility] Comment on above: Performed By: #### C BCDIF, CMP ####[facility] [address] [place] [address] Lipid Panel, Basicon 16-2 018 Cholesterol [Mass/Vol] 176 mg/dL Normal <200 [facility] Comment on above: Result Comment: <200 mg/dL, Desirable 200-239 mg/dL, Borderline high >239 mg/dL, High Performed By: #### L IPB ####[place] [id number] [place], [place] [phone] Cholesterol in HDL [Mass/Vol] 39 mg/dL Low >39 [facility] Comment on above: Result Comment: 40-5 9 mg/dL, Acceptable >59 mg/dL, High: Negative risk factor for coronary heart disease <40 mg/dL, Low: Positive risk factor for coronary heart disease Performed By: #### L IPB ####[address] [phone] Cholesterol in LDL [Mass/Vol] 126 mg/dL High <100 [facility] Comment on above: Result Comment: <100 mg/dL, Optimal 100-129 mg/dL, Near optimal/above optimal 130-159 mg/dL, Borderline high 160-189 mg/dL, High >189 mg/dL, Very high Secondary prevention optimal LDL Cholesterol levels are recommended to be < 70 mg/dL Performed By: #### L IPB ####[facility] [place] [address] [phone] Fasting Time Unknown Normal [facility] Comment on above: Performed By: #### L IPB ####[facility] [place], [place] [phone] LDL:HDL Ratio 3.23 High <2.54 [facility] Comment on above: Result Comment: Refe rahul: 1. National Cholesterol Education Program ATP III Guideline At-A-Glance Quick Desk Reference: National Heart, Lung, and Blood [place]. National Institutes of Health. 2001: NIH Publication No. 01-3305. 2. An International Atherosclerosis Society position paper: global recommendations for the management of dyslipidemia: executive summary, Atherosclerosis. 2014: 232(2):410-413. Performed By: #### L IPB ####[address] [phone] Non HDL Cholesterol 137 mg/dL High <130 [facility] Comment on above: Result Comment: <130 mg/dL, Optimal 130-159 mg/dL, Near optimal/above optimal 160-189 mg/dL, Borderline high 190-219 mg/dL, High >219 mg/dL, Very high Secondary prevention optimal non HDL Cholesterol levels are recommended to be < 100 mg/dL Performed By: #### L IPB ####[address] [phone] TC:HDL Ratio 4.51 Normal <5.10 [facility] Comment on above: Performed By: #### L IPB ####[place] [phone] Triglyceride [Mass/Vol] 53 mg/dL Normal <150 M [facility] Comment on above: Result Comment: <150 mg/dL, Normal 150-199 mg/dL, Borderline high 200-499 mg/dL, High >499 mg/dL, Very high Performed By: #### L IPB ####[address] [phone] VLDL Cholesterol 11 mg/dL Normal <30 [facility] Comment on above: Performed By: #### L IPB ####[address] [phone] NURSING PROGon 02-14-2018 NURSING PROG HNO ID: [id number] Author: Carol (Rn) TISH Aly Service: (none) Author Type: Registered Nurse Type: Nursing Progress Note Filed: 02/14/2018 10:00 AM Note Text: Nursing Progress Note Patient Name: Maria De Jesus Hogan Patient Location: [facility]-0242/[facility]-0242- 1 __ Daily Note:02/14/18 0741 EEG being completed. IVF infusing as ordered. Bedside report given from TISH Guardado. 0900 Neuro completed, see charting. NIH completed, results in a 2. Patient denies SAINZ or discomfort at this time. No other requests at this time. Side rails x 3 up, call light and possessions within reach. This note was completed by: Carol Aly RN [facility] NURSING PROG HNO ID: [id number] Author: Debby (Tish) TISH Saavedra Service: (none) Author Type: Registered Nurse Type: Nursing Progress Note Filed: 02/14/2018 5:37 AM Note Text: Nursing Progress Note Patient Name: Marai De Jesus Hogan Patient Location: [facility]2N-0242/[facility]-0242- 1 __ Daily Note: 1944- received report on pt. Pt off floor for cervical MRI. 2024- pt back to floor. Assessment completed. Numbness and tingling on the Left side of his body- also experiencing a 7/10 SAINZ. SR on tele. [place] at bedside- pt's ankles shackled. 2035- night-time medications administered and IV fluids restarted 2100- pt resting comfortably 2300- pt resting comfortably- has asked for multiple snacks and drinks. No change in the numbness/tingling/mobi lity of his left side. MRI negative for acute changes. 0100- pt resting comfortably- no complaints of SAINZ. No changes in neurological status. 3/5 mobility in both LUE and LLE. 0300- pt resting. No change in neurological status- continues to feel numbness and tingling on left side 0500- deputy still at bedside. No change in neuro status 0535- SB on tele This note was completed by: Debby Saavedra RN [facility] APTTon 02-13-2018 aPTT Coag (Bld) [Time] 26.9 s Normal 23.0-32.4 [facility] Comment on above: Result Comment: Unfr [...] laboratory APTT reagent in use throughout the [facility]. Performed By: #### C BC, PT, PTT, BMP #### [facility] [address] [place] [address] Basic Metabolic Panlon 02-13 Anion gap [Moles/Vol] 10 mmol/L Normal 9-18 [facility] Comment on above: Performed By: #### C BC, PT, PTT, BMP #### [facility] [address] [place] [address] Calcium [Mass/Vol] 9.6 mg/dL Normal 8.5-10.2 [facility] Comment on above: Performed By: #### C BC, PT, PTT, BMP #### [facility] [address] [place] [address] Chloride [Moles/Vol] 101 mmol/L Normal 97-105 [facility] Comment on above: Performed By: #### C BC, PT, PTT, BMP #### [facility] [address] [place] [address] CO2 [Moles/Vol] 30 mmol/L Normal 22-30 [facility] Comment on above: Performed By: #### C BC, PT, PTT, BMP #### [facility] [address] [place], [place] [phone] Creatinine [Mass/Vol] 0.81 mg/dL Normal 0.73-1.22 [facility] Comment on above: Performed By: #### C BC, PT, PTT, BMP #### [facility] [address] [place] [address] eGFR- Amer. >60 Normal [facility] Comment on above: Performed By: #### C BC, PT, PTT, BMP #### [facility] [address] [place], [place] [phone] GFR/1.73 sq M predicted among non-blacks MDRD (S/P/Bld) [Vol rate/Area] mL/min/{1.73_m2} Normal [facility] Comment on above: Result Comment: eGFR [...] #### C BC, PT, PTT, BMP #### [facility] [address] [place] [address] Glucose [Mass/Vol] 102 mg/dL High 74-99 [facility] Comment on above: Result Comment: The [place] Diabetes Association (ADA) provides guidance for cutoff [...] Standards of Medical Care in Diabetes 2016, [place] Diabetes Association. Diabetes Care. 2016.39(Suppl 1). Performed By: #### C BC, PT, PTT, BMP #### [facility] [address] [facility] [phone] Potassium [Moles/Vol] 3.8 mmol/L Normal 3.7-5.1 [facility] Comment on above: Performed By: #### C BC, PT, PTT, BMP #### [facility] [address] [facility] [phone] Sodium [Moles/Vol] 141 mmol/L Normal 136-144 [facility] Comment on above: Performed By: #### C BC, PT, PTT, BMP #### [facility] [address] [facility] [phone] Urea nitrogen [Mass/Vol] 13 mg/dL Normal 9-24 [facility] Comment on above: Performed By: #### C BC, PT, PTT, BMP #### [facility] Laboratory [address] [phone] CBCon 02-13-2018 Erythrocyte distribution width (RBC) [Ratio] 13.3 % Normal 11.5-15.0 [facility] Comment on above: Performed By: #### C BC, PT, PTT, BMP #### [facility] Laboratory [address] [facility] [phone] Hematocrit (Bld) [Volume fraction] 44.7 % Normal 39.0-51.0 [facility] Comment on above: Performed By: #### C BC, PT, PTT, BMP #### [facility] Laboratory [address] [phone] Hemoglobin (Bld) [Mass/Vol] 14.9 g/dL Normal 13.0-17.0 [facility] Comment on above: Performed By: #### C BC, PT, PTT, BMP #### [facility] Laboratory [address] [phone] MCH (RBC) [Entitic mass] 30.3 pG Normal 26.0-34.0 [facility] Comment on above: Performed By: #### C BC, PT, PTT, BMP #### [facility] Laboratory [address] [phone] MCHC (RBC) [Mass/Vol] 33.3 g/dL Normal 30.5-36.0 [facility] Comment on above: Performed By: #### C BC, PT, PTT, BMP #### [facility] Laboratory [address] [phone] MCV (RBC) [Entitic vol] 91.0 fL Normal 80.0-100.0 [facility] Comment on above: Performed By: #### C BC, PT, PTT, BMP #### [facility] Laboratory [address] [facility] [phone] Platelet mean volume (Bld) [Entitic vol] 8.4 fL Low 9.0-12.7 [facility] Comment on above: Performed By: #### C BC, PT, PTT, BMP #### [facility] Laboratory [address] [facility] [phone] Platelets (Bld) [#/Vol] 302 10*3/uL Normal 150-400 [facility] Comment on above: Performed By: #### C BC, PT, PTT, BMP #### [facility] Laboratory [address] [facility] [facility] [phone] RBC (Bld) [#/Vol] 4.91 10*6/uL Normal 4.20-6.00 [facility] Comment on above: Performed By: #### C BC, PT, PTT, BMP #### [facility] Laboratory [address] [facility] [phone] WBC (Bld) [#/Vol] 6.07 10*3/uL Normal 3.70-11.00 [facility] Comment on above: Performed By: #### C BC, PT, PTT, BMP #### [facility] Laboratory [address] [facility] [phone] CNCOon 02-13-2018 CNCO Letter Text February 13, 2018 Department of Hospital Medicine [address] [place] [address] Regarding: Maria De Jesus [place] (: 1965) Dear Dr. Rasheed: A patient of your practice, Maria De Jesus Hogan, was admitted on 02/13/2018 to [facility] under the services of the Department of Hospital Medicine, and is currently under the care of Dr. Arredondo. We look forward to collaborating with you regarding his care. If you have any questions or concerns, please call us in the Department of Hospital [facility] at [facility], at [phone]. Best Regards, Larry Borja Normal [facility] CONSULTon 02-13-2018 CONSULT HNO ID: [id number] Author: Lyric Delgado Service: Neurology General Author [...] sensory loss. Patient presented this AM from [facility]. Last known well last night at 10 [...] at baseline. Reporting headache on the right quaker that alternates between sharp and dull. Sensitive [...] 5/5 Biceps 5-/5 Triceps 5/5 Triceps 5-/5 Application Designer 5/5 Application Designer 4/5 WE 5/5 WE 4/5 RIGHT LE: [...] cervical spine ---> EEG Lyric Delgado M.D. [facility] [place] Department of Neu[facility] Pager: [phone] February 13, [address] [facility] [address] BRAIN WO IVCONon 02-14-20 CT BRAIN WO IVCON * * *Final Report* * * DATE OF EXAM: Feb 13 2018 7:02AM [facility] [place] [place] BRAIN WO IVCON / [...] Physician: EVELYN FARAH on 02/13/2018 at 07:08. Internet Retailer: GRANT Transcribe Date/Time: Feb 13 2018 7:08A Dictated by : RENATA ACEVEDO MD This examination was interpreted and the report reviewed and electronically signed by: RENATA ACEVEDO MD on Feb 13 2018 7:12AM EST [id number] [facility] CTA HEAD W IVCONon 8 CTA HEAD W IVCON * * *Final Report* * * DATE OF EXAM: Feb 13 2018 7:14AM [facility] - CTA HEAD W IVCON / [...] independent risk factor for atherosclerotic vascular disease. Internet Retailer: P[employer] Transcribe Date/Time: Feb 13 2018 7:25A Dictated by : RENATA ACEVEDO MD This examination was interpreted and the report reviewed and electronically signed by: RENATA ACEVEDO MD on Feb 13 2018 7:33AM EST [id number] [facility] CTA NECK W IVCONon 8 CTA NECK W IVCON * * *Final Report* * * DATE OF EXAM: Feb 13 2018 7:14AM [facility] - CTA NECK W IVCON / [...] independent risk factor for atherosclerotic vascular disease. Internet Retailer: GRANT Transcribe Date/Time: Feb 13 2018 7:25A Dictated by : RENATA ACEVEDO MD This examination was interpreted and the report reviewed and electronically signed by: RENATA ACEVEDO MD on Feb 13 2018 7:33AM EST [id number] [facility] ED NOTEon 02-13-2018 ED NOTE HNO ID: [id number] Author: Catalino CaldwellRn) TISH Cabrera Service: (none) Author Type: Registered Nurse Type: ED Notes Filed: 02/13/2018 7:30 AM Note Text: Assumed patient care at this time. [facility] ED NOTE HNO ID: [id number] Author: Claudia CaldwellRn) TISH Harp Service: (none) Author Type: Registered Nurse Type: ED Notes Filed: 02/13/2018 7:13 AM Note Text: Patient returned to the Emergency Department. [facility] ED NOTE HNO ID: [id number] Author: Claudia CaldwellRn) TISH Harp Service: (none) Author Type: Registered Nurse Type: ED Notes Filed: 02/13/2018 6:56 AM Note Text: Patient transported to CT scan with monitor, Nurse and Tech. [facility] ED NOTE HNO ID: [id number] Author: Claudia CaldwellRn) TISH Harp Service: (none) Author Type: Registered Nurse Type: ED Notes Filed: 02/13/2018 6:56 AM Note Text: Pt presents to the ED with CC of stroke like symptoms, unknown last well, was found on the ground at 0526 per nursing staff at longterm. Pt has left side weakness [facility] ED NOTE HNO ID: [id number] Author: Claudia Samuel) TISH Harp Service: (none) Author Type: Registered Nurse Type: ED Notes Filed: 02/13/2018 6:59 AM Note Text: Pt placed on straddle bug operator and continuous pulsox [facility] ED NOTE HNO ID: [id number] Author: Claudia CalwdellRn) TISH Harp Service: (none) Author Type: Registered Nurse Type: ED Notes Filed: 02/13/2018 6:51 AM Note Text: Bed: ED-02 Expected date: Expected time: Means of arrival: Comments: LST 5 [facility] ED PROV NOTEon 02-13-2018 ED PROV NOTE HNO ID: [id number] Author: Zuly Serna DO Service: Emergency Medicine Author Type: Physician Type: ED Provider Notes Filed: 02/13/2018 8:02 AM Note Text: ED Provider Note Patient Name: Maria De Jesus Hogan SERVICE DATE: 02/13/18 History Patient presents with: Potential Stroke Symptoms 52-year-old male past medical history of reported stroke 10 years ago presented with left-sided deficits, remote tobacco abuse presents from the [facility] with left-sided weakness and sensory deficits. Patient [...] Negative. Neurological: Positive for weakness and numbness. Psychiatric/Behavioral : Negative. Physical Exam BP 133/78 Pulse 82 [...] Documentation Impression Clinical Impression: Stroke Type? Ischemic - IV tPA Inclusion Criteria Does Patient Fall [...] By, (c) = Cosigned By Initials Name ROXANA Farah DO CM Zuly Serna DO Diagnostic Testing ED Labs Ordered and [...] signs reviewed Triage note reviewed Placed on straddle bug operator Medications administered aspirin Consultation obtained stroke neurologist [...] MRI imaging. Administered aspirin. Admit to medicine. [facility] The patient was ADMITTED TO: Regular nursing floor. Case discussed with admitting physician, Dr. Arredondo. Condition at time of disposition: stable SIGNATURE: Zuly Serna DO Critical Care I spent a total of 30 minutes of critical care time in the evaluation and management of this patient. This was necessary to treat or prevent deterioration of the following condition(s): HOME HEALTH CARE CASE MANAGER impairment, which the patient had and/or has a high probability of suddenly developing. The patient received ASA and Consultation by stroke neurologist during the time that critical care was provided. Critical care time excludes separately billed procedures. DO Zuly Mckeon DO 02/13/18 0801 Hanghenok Serna, DO 02/13/18 0802 Normal [facility] HISTORY PHYSICALon 8 HISTORY PHYSICAL HNO ID: [id number] Author: Uriel Arredondo MD Service: Hospital Medicine Author Type: Physician Type: HANDP Filed: 02/13/2018 4:38 PM Note Text: Attending Note I have personally performed a face to face assessment of the patient and have reviewed the PA/CARTON INSPECTOR note. My laboy findings include: History is patient coming from longterm with left sided weakness there is some [...] AND WEEKEND COVERAGE: Nights: Please contact pager [phone]. SUBJECTIVE Chief Complaint: Left sided weakness, CVA HPI: 52year-old male past medical history of reported stroke 10 years ago presented with left-sided deficits, remote tobacco abuse presents from the [facility] longterm with left-sided weakness and sensory deficits. Patient [...] right sided headache. Found on floor of longterm cell this morning. Neuro consulted in ED. [...] right sided headache. Found on floor of longterm cell this morning. Neuro consulted in ED. [...] right sided headache. Found on floor of longterm cell this morning. Neuro consulted in ED. [...] PLAN: -Continue flomax Medication and Non-Pharmacologic VTE Prophylaxis/Anticoagul ants Anticoagulant AND Antiplatelet Medications Start Dose Route Frequency Ordered Stop 02/14/18 0900 aspirin 81 mg chewable tab(s) 81 mg ORAL DAILY 02/13/18 0946 -- 02/13/18 0800 aspirin 324 mg chewable tab(s) 324 mg ORAL ONCE 02/13/18 0738 02/13/18 1959 02/13/18 1000 vte pharmacologic prophylaxis contraindicated (wy,ia) 02/13/18 1000 pneumatic compression stockings (wy,ia) VTE Prophylaxis: VTE prophylaxis appropriate SIGNATURE: Nilay Baker APRN.CNP PATIENT NAME: Maria De Jesus Hogan DATE: February 13, 2018 TIME: 10:05 AM PAGER/CONTACT #: [phone] Normal [facility] Hemoglobin A1con 02-13-2018 HbA1c (Bld) [Mass fraction] 108 mg/dL Normal [facility] Comment on above: Result Comment: eAG: (Estimated average glucose) is a calculated value from HgbA1c and is appeals representative of the average blood glucose level in the last 2-3 month period. Performed By: #### P T, MG1 ####[facility] [address] [place] [phone]#### HBA1C ####[facility] [address] [phone] HbA1c (Bld) [Mass fraction] 5.4 % Normal 4.3-5.6 [facility] Comment on above: Result Comment: Amer [place] Diabetes Association guidelines indicate that patients with HgbA1c in the range 5.7-6.4% are at increased risk for development of diabetes, and intervention by lifestyle modification may be beneficial. HgbA1c greater or equal to 6.5% is considered diagnostic of diabetes. Performed By: #### P T, MG1 ####[facility] [address] [phone]#### HBA1C ####[facility] [address] [place], [place] [phone] MRI BRAIN WO IVCONon 018 MRI BRAIN WO IVCON * * *Final Report* * * DATE OF EXAM: Feb 13 2018 1:03PM [facility] 0294 - MRI BRAIN WO [...] No acute intracranial findings. No acute infarction. Internet Retailer: PSCB Transcribe Date/Time: Feb 13 2018 2:12P Dictated by : ZULY ANTONY MD This examination was interpreted and the report reviewed and electronically signed by: ZULY ANTONY MD on Feb 13 2018 2:17PM EST [id number] Normal [facility] MRI CERVICAL SPINE WO IVCONo n 02-13-2018 MRI CERVICAL SPINE WO IVCON * * *Final Report* * * DATE OF EXAM: Feb 13 2018 8:15PM [facility] 0297 - MRI CERVICAL SPINE [...] vertebrae with counting from the craniocervical junction. Internet Retailer: [facility] Transcribe Date/Time: Feb 13 2018 8:32P Dictated by : UMM YEN MD This examination was interpreted and the report reviewed and electronically signed by: UMM YEN MD on Feb 13 2018 8:34PM EST [id number] Normal [facility] Magnesiumon 02-13-2018 Magnesium [Mass/Vol] 2.0 mg/dL Normal 1.7-2.3 [facility] Comment on above: Performed By: #### P T, MG1 ####[facility] [address] [phone]#### HBA1C ####[facility] [address] [place], [place] [phone] NURSING PROGon 02-13-2018 NURSING PROG HNO ID: [id number] Author: Cata (Rn) TISH Prather Service: (none) Author Type: Registered Nurse Type: Nursing Progress Note Filed: 02/13/2018 6:41 PM Note Text: Nursing Progress Note Patient Name: Maria De Jesus Hogan [facility]-0242- 1 __ Transfer Note: Patient transferred into room/unit 242. Pt. C/o 10/10 headache and L side weakness head to toes. Also, pt. C/o decreased sensation to the L side. Actions taken:Pt. oriented to room and call light. [place] at the bedside. Will continue to monitor and check with patient. 1100: Pt. Still c/o L side weakness, numbness, tingling and headache. SR on telemetry. Tylenol given per MAR order. [place] at the bedside. Will continue to monitor and check with patient. 1300: Pt. Back from MRI. Neurological assessment unchanged, headache improved. SR on tele. Call light in reach, bed in the lowest position. [place] at the bedside. Will continue to monitor and check with patient. 1500: Pt. Stating L side numbness improved, but L side weakness unchanged. Pt. Ate lunch. [place] at the bedside. Will continue to monitor and check with patient. 1700: Neurological assessment unchanged, pt. Continues to c/o L side weakness. SR on telemetry. VSS stable. [place] at the bedside. Will continue to monitor and check with patient. This note was completed by: Cata Prather RN Normal [facility] PROGRESSon 02-13-2018 PROGRESS HNO ID: [id number] Author: Garland Huizar Service: (none) Author Type: Physician Type: Progress Notes Filed: 02/13/2018 8:52 AM Note Text: TELESTROKE DOCUMENTATION Name: Maria De Jesus Hogan : 1965 Site: [facility] Last Known Well (Date/Time): 02/12/18 2200 Neurologist Evaluation (Date/Time): 02/13/18 0733 Chief Complaint: [...] and management Thank you for contacting the [facility]. I appreciate the opportunity for allowing me to participate in Maria De Jesus Hogan's care. Please feel free to contact me and/or the [facility] at any time if you have any further questions or need additional assistance. Garland Huizar MD February 13, 2018 8:51 AM Normal [facility] Protimeon 02-13-2018 PT Coag (PPP) [Time] 10.7 s Normal 9.7-13.0 [facility] Comment on above: Performed By: #### P T, MG1 ####[facility] [address] [phone]#### HBA1C ####[facility] [address] [place], [place] [phone] Performed By: #### C BC, PT, PTT, BMP #### [facility] Laboratory [address] [facility] [phone] PT Coag (PPP) [Time] 1.1 s Normal 0.9-1.3 [facility] Comment on above: Result Comment: Lyssa min K Antagonist (VKA) Therapeutic Range: INR 2 to 3 (Target INR of 2.5) Note: For patients treated with VKA drugs, such as warfarin, the [place] [employer] 2012 Guideline recommends [...] GH, et al. Chest 2012, 141:7S-47S Amelia WELLS, et al. [facility] 2017, 70: 252-289 Performed By: #### P T, MG1 ####[facility] [address] [phone]#### HBA1C ####[facility] [address] [phone] Performed By: #### C BC, PT, PTT, BMP #### [facility] Laboratory [address] [facility] [phone] THERAPY NTon 02-13-2018 THERAPY NT HNO ID: [id number] Author: Abida (Furniture Duster) Maribell Hayes CCC/SHERIFF SERGEANT Service: Speech/Swallow Author Type: Speech Language Pathologist Type: Therapy (PT/OT/Speech/Resp) Filed: 02/13/2018 1:54 PM Note Text: Speech Therapy Speech Evaluation, Clinical Swallow Evaluation SERVICE DATE: 02/13/2018 SERVICE TIME: 1325 to 1350 ROOM: [address] [address] Diet Recommendations: Regular Consistency;Thin liquids Results and [...] Skilled Need Interventions Provided: Speech Language Eval (94584);Clinical Swallow Evaluation (02942) $ Speech Language Eval (56174) Billed Units: 1 unit Expressive / Receptive Language assessment is completed to determine patient's current communication skills within the acute care setting and potential need for therapeutic intervention. $ Clinical Swallow Evaluation (75595) Billed Units: 1 unit Clinical Swallowing assessment [...] CVA / Left sided weakness - Per PARADI TENDER note: found by staff at 5:30 this [...] DATE: February 13, 2018 TIME: 1:51 PM Normal [facility] THERAPY NT HNO ID: [id number] Author: Abida (Enrico) NEL Burgos Service: Speech/Swallow Author Type: Speech Language Pathologist Type: Therapy (PT/OT/Speech/Resp) Filed: 02/13/2018 12:13 PM Note Text: SPEECH THERAPY MISSED VISIT SERVICE DATE: 02/13/2018 SERVICE TIME: 1200 to 1200 ROOM: [address] [address] Attempted Speech Evaluation;Clinical Swallow Evaluation. Patient not seen due to Test/Procedure. Spoke with nursing whom indicated that the patient was off the floor for a procedure. Regular diet has been ordered. This department will re-attempt assessment as patient becomes available and/or as schedule allows. SIGNATURE: WOODY Serrano PATIENT NAME: Maria De Jesus Hogan DATE: February 13, 2018 TIME: 12:12 PM [facility] Troponin Ton 02-13-2018 Troponin T.cardiac [Mass/Vol] ug/L Normal 0.000-0.029 [facility] Comment on above: Performed By: #### T NT ####[facility] [address] [place], [place] [phone] Vital Signs Date Time Vital Sign Value Performing Clinician Facility 09-20-2024 08:45-0400 Body temperature 97.8 [degF] Out [facility] 09-20-2024 08:45-0400 Diastolic blood pressure 82 mm[Hg] Out [facility] 09-20-2024 08:45-0400 Heart rate 104 /min Out [facility] 09-20-2024 08:45-0400 Respiratory rate 18 /min Out [facility] 09-20-2024 08:45-0400 SaO2% (BldA) [Mass fraction] 97 % Out [facility] 09-20-2024 08:45-0400 Systolic blood pressure 137 mm[Hg] Out [facility] 09-20-2024 05:32-0400 Body mass index (BMI) [Ratio] 30.2 kg/m2 Out [facility] 09-20-2024 05:32-0400 Body weight 98.5 kg Out [facility] 09-19-2024 04:39-0400 Inhaled oxygen flow rate 2 L/min Out [facility] 09-17-2024 20:50-0400 Body height 180.34 cm Out [facility] 09-17-2024 20:33-0400 Body temperature 97.7 [degF] Out [facility] 09-17-2024 20:33-0400 Diastolic blood pressure 85 mm[Hg] Out [facility] 09-17-2024 20:33-0400 Heart rate 109 /min Out [facility] 09-17-2024 20:33-0400 Respiratory rate 18 /min Out [facility] 09-17-2024 20:33-0400 SaO2% (BldA) [Mass fraction] 94 % Out [facility] 09-17-2024 20:33-0400 Systolic blood pressure 98 mm[Hg] Out [facility] 09-17-2024 18:30-0400 Body height 180.34 cm Out [facility] 09-17-2024 18:30-0400 Body mass index (BMI) [Ratio] 30.8 kg/m2 Out [facility] 09-17-2024 18:30-0400 Body weight 100.24 kg Out [facility] 08-14-2024 09:42-0400 Body height 180.3 cm Lynda Rasheed MD Work Phone: [facility] 08-14-2024 09:42-0400 Body mass index (BMI) [Ratio] 31.66 kg/m2 Lynda Rasheed MD Work Phone: [facility] 08-14-2024 09:42-0400 Body temperature 97.9 [degF] Lynda Rasheed MD Work Phone: [facility] 08-14-2024 09:42-0400 Body weight 102.97 kg Lynda Rasheed MD Work Phone: [facility] [place] [facility] [employer] 08-14-2024 09:42-0400 Diastolic blood pressure 76 mm[Hg] Lynda Rasheed MD Work Phone: [facility] [place] [facility] [employer] 08-14-2024 09:42-0400 Heart rate 90 /min Lynda Rasheed MD Work Phone: [facility] [place] [facility] [employer] 08-14-2024 09:42-0400 Systolic blood pressure 112 mm[Hg] Lynda Rasheed MD Work Phone: [facility] [place] [facility] [employer] 08-10-2024 16:25-0400 Body height 180.3 cm Catalino Waddell MD Work Phone: [facility] [place] [facility] [employer] 08-10-2024 16:25-0400 Body mass index (BMI) [Ratio] 31.1 kg/m2 Catalino Waddell MD Work Phone: [facility] [place] [facility] [employer] 08-10-2024 16:25-0400 Body temperature 97.81 [degF] Catalino Waddell MD Work Phone: [employer] 08-10-2024 16:25-0400 Body weight 101.15 kg Catalino Waddell MD Work Phone: [facility] [place] [facility] [employer] 08-10-2024 16:25-0400 Diastolic blood pressure 99 mm[Hg] Catalino Waddell MD Work Phone: [facility] [place] [facility] [employer] 08-10-2024 16:25-0400 Heart rate 99 /min Catalino Waddell MD Work Phone: [employer] 08-10-2024 16:25-0400 Respiratory rate 16 /min Catalino Waddell MD Work Phone: [employer] 08-10-2024 16:25-0400 SaO2% (BldA) [Mass fraction] 99 % Catalino Waddell MD Work Phone: [facility] [place] [facility] [employer] 08-10-2024 16:25-0400 Systolic blood pressure 175 mm[Hg] Catalino Waddell MD Work Phone: [facility] [place] [facility] [employer] 08-06-2024 11:33-0400 Body temperature 97.81 [degF] Matthew Demarco DO Work Phone: [facility] [place] [facility] [employer] 08-06-2024 11:33-0400 Diastolic blood pressure 95 mm[Hg] Matthew Demarco DO Work Phone: [facility] [place] [facility] [employer] 08-06-2024 11:33-0400 Heart rate 102 /min Matthew Demarco DO Work Phone: [facility] [place] [facility] [employer] 08-06-2024 11:33-0400 Respiratory rate 16 /min Matthew Demarco DO Work Phone: [facility] [place] [facility] [employer] 08-06-2024 11:33-0400 SaO2% (BldA) [Mass fraction] 95 % Matthew Demarco DO Work Phone: [facility] [place] [facility] [employer] 08-06-2024 11:33-0400 Systolic blood pressure 139 mm[Hg] Matthew Demarco DO Work Phone: [facility] [place] [facility] [employer] 08-04-2024 15:29-0400 Body height 181 cm Matthew Demarco DO Work Phone: [facility] [place] [facility] [employer] 08-04-2024 15:29-0400 Body mass index (BMI) [Ratio] 31.15 kg/m2 Matthew Demarco DO Work Phone: [facility] [place] [facility] [employer] 08-04-2024 15:29-0400 Body weight 102.06 kg Matthew Demarco DO Work Phone: [facility] [place] [facility] [employer] 07-01-2024 20:33-0400 Diastolic blood pressure 87 mm[Hg] Goyo Melara MD Work Phone: [facility] [place] [facility] [employer] 07-01-2024 20:33-0400 Heart rate 91 /min Goyo Melara MD Work Phone: [facility] [place] [facility] [employer] 07-01-2024 20:33-0400 Respiratory rate 14 /min oGyo Melara MD Work Phone: [facility] [place] [facility] [employer] 07-01-2024 20:33-0400 SaO2% (BldA) [Mass fraction] 99 % Goyo Melara MD Work Phone: [facility] [place] [facility] [employer] 07-01-2024 20:33-0400 Systolic blood pressure 129 mm[Hg] Goyo Melara MD Work Phone: [facility] [place] [facility] [employer] 07-01-2024 19:53-0400 Body height 177.8 cm Goyo Melara MD Work Phone: [facility] [place] [facility] [employer] 07-01-2024 19:53-0400 Body mass index (BMI) [Ratio] 31.85 kg/m2 Goyo Melara MD Work Phone: [facility] [place] [facility] [employer] 07-01-2024 19:53-0400 Body temperature 98.1 [degF] Goyo Melara MD Work Phone: [facility] [place] [facility] [employer] 07-01-2024 19:53-0400 Body weight 100.7 kg Goyo Melara MD Work Phone: [facility] [place] [facility] [facility] 06-16-2024 14:06-0400 Body height 177.8 cm Lynda Rasheed MD Work Phone: [facility] [employer] 06-16-2024 14:06-0400 Body mass index (BMI) [Ratio] 31.71 kg/m2 Lynda Rasheed MD Work Phone: [facility] [employer] 06-16-2024 14:06-0400 Body temperature 97.3 [degF] Lynda Rasheed MD Work Phone: [facility] [employer] 06-16-2024 14:06-0400 Body weight 100.25 kg Lynda Rasheed MD Work Phone: [facility] [employer] 06-16-2024 14:06-0400 Diastolic blood pressure 66 mm[Hg] Lynda Rasheed MD Work Phone: [facility] [employer] 06-16-2024 14:06-0400 Heart rate 108 /min Lynda Rasheed MD Work Phone: [facility] [employer] 06-16-2024 14:06-0400 SaO2% (BldA) [Mass fraction] 94 % Lynda Rasheed MD Work Phone: [facility] 06-16-2024 14:06-0400 Systolic blood pressure 106 mm[Hg] Lynda Rasheed MD Work Phone: [facility] 06-04-2024 10:54-0500 Body temperature 97.9 [degF] Catalino Yuaci DO Work Phone: [facility] 06-04-2024 10:54-0500 Diastolic blood pressure 99 mm[Hg] Catalino Yuaci DO Work Phone: [facility] 06-04-2024 10:54-0500 Heart rate 99 /min Catalino Pallaci DO Work Phone: [facility] 06-04-2024 10:54-0500 Respiratory rate 20 /min Catalino Yuaci DO Work Phone: [facility] 06-04-2024 10:54-0500 SaO2% (BldA) [Mass fraction] 94 % Catalino Yuaci DO Work Phone: [facility] 06-04-2024 10:54-0500 Systolic blood pressure 141 mm[Hg] Catalino Yuaci DO Work Phone: [facility] 06-02-2024 18:30-0500 Body height 177.8 cm Catalino Yuaci DO Work Phone: [facility] 06-02-2024 18:30-0500 Body mass index (BMI) [Ratio] 31.57 kg/m2 Catalino Yuaci DO Work Phone: [facility] 06-02-2024 18:30-0500 Body weight 99.79 kg Catalino Yuaci DO Work Phone: [facility] 05-25-2024 15:50-0500 Diastolic blood pressure 94 mm[Hg] Goyo Melara MD Work Phone: [facility] 05-25-2024 15:50-0500 Systolic blood pressure 113 mm[Hg] Goyo Melara MD Work Phone: [facility] 05-25-2024 15:46-0500 Body height 180.3 cm Goyo Melara MD Work Phone: [facility] 05-25-2024 15:46-0500 Body mass index (BMI) [Ratio] 32.08 kg/m2 Goyo Melara MD Work Phone: [facility] [employer] 05-25-2024 15:46-0500 Body temperature 97.5 [degF] Goyo Melara MD Work Phone: [facility] [employer] 05-25-2024 15:46-0500 Body weight 104.33 kg Goyo Melara MD Work Phone: [facility] [employer] 05-25-2024 15:46-0500 Heart rate 114 /min Goyo Melara MD Work Phone: [facility] [employer] 05-25-2024 15:46-0500 Respiratory rate 18 /min Goyo Melara MD Work Phone: [facility] [employer] 05-25-2024 15:46-0500 SaO2% (BldA) [Mass fraction] 93 % Goyo Melara MD Work Phone: [facility] [employer] 05-20-2024 13:15-0500 Body height 182.9 cm Lynda Rasheed MD Work Phone: [facility] [employer] 05-20-2024 13:15-0500 Body mass index (BMI) [Ratio] 30.54 kg/m2 Lynda Rasheed MD Work Phone: [facility] [employer] 05-20-2024 13:15-0500 Body temperature 97 [degF] Lynda Rasheed MD Work Phone: [facility] [employer] 05-20-2024 13:15-0500 Body weight 102.15 kg Lynda Rasheed MD Work Phone: [facility] [employer] 05-20-2024 13:15-0500 Diastolic blood pressure 75 mm[Hg] Lynda Rasheed MD Work Phone: [facility] [employer] 05-20-2024 13:15-0500 Heart rate 96 /min Lynda Rasheed MD Work Phone: [facility] [employer] 05-20-2024 13:15-0500 SaO2% (BldA) [Mass fraction] 97 % Lynda Rasheed MD Work Phone: [facility] [employer] 05-20-2024 13:15-0500 Systolic blood pressure 118 mm[Hg] Lynda Rasheed MD Work Phone: [facility] [employer] 05-10-2024 11:17-0500 Body temperature 98.29 [degF] Johnny Glozman DO Work Phone: [facility] [employer] 05-10-2024 11:17-0500 Diastolic blood pressure 86 mm[Hg] Johnny Glozman DO Work Phone: [facility] [employer] 05-10-2024 11:17-0500 Heart rate 107 /min Johnny Glozman DO Work Phone: [facility] [employer] 05-10-2024 11:17-0500 Respiratory rate 18 /min Johnny Glozman DO Work Phone: [facility] [employer] 05-10-2024 11:17-0500 SaO2% (BldA) [Mass fraction] 94 % Johnny Glozman DO Work Phone: [facility] [employer] 05-10-2024 11:17-0500 Systolic blood pressure 122 mm[Hg] Johnny Glozman DO Work Phone: [facility] [employer] 05-08-2024 12:07-0500 Body height 183.4 cm [facility] 05-08-2024 12:07-0500 Body mass index (BMI) [Ratio] 27.65 kg/m2 Johnny Glozman DO Work Phone: [employer] 05-08-2024 12:07-0500 Body weight 92.99 kg Johnny Glozman DO Work Phone: [employer] 04-12-2024 07:10-0500 Body temperature 97.3 [degF] Mejgon Miesha DO Work Phone: [facility] 04-12-2024 07:10-0500 Diastolic blood pressure 95 mm[Hg] Mejgon Miesha DO Work Phone: [facility] 04-12-2024 07:10-0500 Heart rate 87 /min Irisn Miesha DO Work Phone: [facility] 04-12-2024 07:10-0500 Respiratory rate 16 /min Faithgon Miesha DO Work Phone: [facility] 04-12-2024 07:10-0500 SaO2% (BldA) [Mass fraction] 97 % Irisn Miesha DO Work Phone: [facility] 04-12-2024 07:10-0500 Systolic blood pressure 134 mm[Hg] Faithgon Miesha DO Work Phone: [facility] 04-11-2024 16:17-0500 Body height 180.3 cm Irisn Miesha DO Work Phone: [facility] 04-10-2024 19:47-0500 Body mass index (BMI) [Ratio] 31.49 kg/m2 Kolby Miesha DO Work Phone: [facility] 04-10-2024 19:47-0500 Body weight 102.4 kg Kolby Miesha DO Work Phone: [facility] 02-28-2024 09:54-0500 Body height 180.3 cm Myra Darden MD Work Phone: [facility] 02-28-2024 09:54-0500 Body mass index (BMI) [Ratio] 32.5 kg/m2 Myra Darden MD Work Phone: [facility] 02-28-2024 09:54-0500 Body weight 105.69 kg Myra Darden MD Work Phone: [facility] 02-28-2024 09:54-0500 Diastolic blood pressure 86 mm[Hg] Myra Darden MD Work Phone: [facility] 02-28-2024 09:54-0500 Heart rate 100 /min Myra Darden MD Work Phone: [facility] 02-28-2024 09:54-0500 SaO2% (BldA) [Mass fraction] 94 % Myra Darden MD Work Phone: [facility] [employer] Comment on above: RA 02-28-2024 09:54-0500 Systolic blood pressure 126 mm[Hg] Myra Darden MD Work Phone: [facility] [employer] 02-05-2024 08:15-0500 Body height 180.3 cm Lynda Rasheed MD Work Phone: [facility] [employer] 02-05-2024 08:15-0500 Body mass index (BMI) [Ratio] 31.74 kg/m2 Lynda Rasheed MD Work Phone: [facility] [employer] 02-05-2024 08:15-0500 Body temperature 98.1 [degF] Lynda Rasheed MD Work Phone: [facility] [employer] 02-05-2024 08:15-0500 Body weight 103.24 kg Lynda Rasheed MD Work Phone: [facility] [employer] 02-05-2024 08:15-0500 Diastolic blood pressure 80 mm[Hg] Lynda Rasheed MD Work Phone: [facility] [employer] 02-05-2024 08:15-0500 Heart rate 93 /min Lynda Rasheed MD Work Phone: [facility] [employer] 02-05-2024 08:15-0500 SaO2% (BldA) [Mass fraction] 96 % Lynda Rasheed MD Work Phone: [facility] [employer] 02-05-2024 08:15-0500 Systolic blood pressure 127 mm[Hg] Lynda Rasheed MD Work Phone: [facility] [employer] 01-24-2024 11:26-0400 Body temperature 97.11 [degF] Triston Abraham MD Work Phone: [facility] [employer] 01-24-2024 11:26-0400 Diastolic blood pressure 79 mm[Hg] Triston Abraham MD Work Phone: [facility] [employer] 01-24-2024 11:26-0400 Respiratory rate 16 /min Triston Abraham MD Work Phone: [facility] [employer] 01-24-2024 11:26-0400 Systolic blood pressure 113 mm[Hg] Triston Abraham MD Work Phone: [facility] [employer] 01-24-2024 08:16-0400 Heart rate 94 /min Triston Abraham MD Work Phone: [facility] [employer] 01-24-2024 08:16-0400 SaO2% (BldA) [Mass fraction] 98 % Triston Abraham MD Work Phone: [facility] [employer] 01-20-2024 22:51-0400 Body height 180.3 cm Triston Abraham MD Work Phone: [facility] [employer] 01-20-2024 22:51-0400 Body mass index (BMI) [Ratio] 32.08 kg/m2 Triston Abraham MD Work Phone: [facility] [employer] 01-20-2024 22:51-0400 Body weight 104.33 kg Triston Abraham MD Work Phone: [facility] [employer] 11-30-2023 08:09-0400 Body temperature 97.3 [degF] Steve Demarco MD Work Phone: [facility] [employer] 11-30-2023 08:09-0400 Diastolic blood pressure 92 mm[Hg] Steve Demarco MD Work Phone: [facility] [employer] 11-30-2023 08:09-0400 Heart rate 112 /min Steve Demarco MD Work Phone: [facility] [employer] 11-30-2023 08:09-0400 Respiratory rate 18 /min Steve Demarco MD Work Phone: [facility] [employer] 11-30-2023 08:09-0400 SaO2% (BldA) [Mass fraction] 95 % Steve Demarco MD Work Phone: [facility] [employer] 11-30-2023 08:09-0400 Systolic blood pressure 136 mm[Hg] Steve Demarco MD Work Phone: [facility] [employer] 11-27-2023 20:24-0400 Body height 180.3 cm Steve Demarco MD Work Phone: [facility] [employer] 11-27-2023 20:24-0400 Body mass index (BMI) [Ratio] 32.08 kg/m2 Steve Demarco MD Work Phone: [facility] [employer] 11-27-2023 20:24-0400 Body weight 104.33 kg Steve Demarco MD Work Phone: [facility] [employer] 07-31-2023 10:14-0400 Body temperature 96.8 [degF] Triston Abraham MD Work Phone: [facility] [employer] 07-31-2023 10:14-0400 Diastolic blood pressure 104 mm[Hg] Triston Abraham MD Work Phone: [facility] [employer] 07-31-2023 10:14-0400 Heart rate 97 /min Triston Abraham MD Work Phone: [facility] [employer] 07-31-2023 10:14-0400 Respiratory rate 19 /min Triston Abraham MD Work Phone: [facility] [employer] 07-31-2023 10:14-0400 SaO2% (BldA) [Mass fraction] 96 % Triston Abraham MD Work Phone: [facility] [employer] 07-31-2023 10:14-0400 Systolic blood pressure 148 mm[Hg] Triston Abraham MD Work Phone: [facility] [employer] 07-28-2023 01:01-0400 Body height 180.3 cm Triston Abraham MD Work Phone: [facility] [employer] 07-28-2023 01:01-0400 Body mass index (BMI) [Ratio] 29.99 kg/m2 Triston Abraham MD Work Phone: [facility] [employer] 07-28-2023 01:01-0400 Body weight 97.52 kg Triston Abraham MD Work Phone: [facility] [employer] 07-11-2023 11:18-0400 Body temperature 97.39 [degF] Catalino Mujica MD Work Phone: [facility] [employer] 07-11-2023 11:18-0400 Diastolic blood pressure 87 mm[Hg] Catalino Mujica MD Work Phone: [facility] [employer] 07-11-2023 11:18-0400 Heart rate 106 /min Catalino Mujica MD Work Phone: [facility] [employer] 07-11-2023 11:18-0400 Respiratory rate 16 /min Catalino Mujica MD Work Phone: [facility] [employer] 07-11-2023 11:18-0400 SaO2% (BldA) [Mass fraction] 95 % Catalino Mujica MD Work Phone: [facility] [employer] 07-11-2023 11:18-0400 Systolic blood pressure 123 mm[Hg] Catalino Mujica MD Work Phone: [facility] [employer] 07-08-2023 17:46-0400 Body height 180.3 cm Catalino Mujica MD Work Phone: [facility] [employer] 07-08-2023 17:46-0400 Body mass index (BMI) [Ratio] 30.68 kg/m2 Catalino Mujica MD Work Phone: [facility] [employer] 07-08-2023 17:46-0400 Body weight 99.79 kg Catalino Mujica MD Work Phone: [facility] [employer] 05-23-2023 08:00-0500 Body temperature 98.01 [degF] Scooter Luna MD Work Phone: [facility] [employer] 05-23-2023 08:00-0500 Diastolic blood pressure 96 mm[Hg] Scooter Luna MD Work Phone: [employer] 05-23-2023 08:00-0500 Heart rate 108 /min Scooter Luna MD Work Phone: [facility] [employer] 05-23-2023 08:00-0500 Respiratory rate 14 /min Scooter Luna MD Work Phone: [facility] [employer] 05-23-2023 08:00-0500 Systolic blood pressure 136 mm[Hg] Scooter Luna MD Work Phone: [facility] [employer] 05-22-2023 20:39-0500 SaO2% (BldA) [Mass fraction] 95 % Scooter Luna MD Work Phone: [facility] [employer] 05-20-2023 19:47-0500 Body height 177.8 cm Scooter Luna MD Work Phone: [employer] [facility] [employer] 05-20-2023 19:47-0500 Body mass index (BMI) [Ratio] 28.55 kg/m2 Scooter Luna MD Work Phone: [facility] [employer] 05-20-2023 19:47-0500 Body weight 90.27 kg Scooter Luna MD Work Phone: [facility] [employer] 03-19-2023 10:21-0500 Body height 180.3 cm Catalino Waddell MD Work Phone: [facility] [employer] 03-19-2023 10:21-0500 Body mass index (BMI) [Ratio] 29.99 kg/m2 Catalino Waddell MD Work Phone: [facility] [employer] 03-19-2023 10:21-0500 Body temperature 98.2 [degF] Catalino Waddell MD Work Phone: [employer] 03-19-2023 10:21-0500 Body weight 97.52 kg Catalino Waddell MD Work Phone: [facility] 03-19-2023 10:21-0500 Diastolic blood pressure 82 mm[Hg] Catalino Waddell MD Work Phone: [employer] [facility] [employer] 03-19-2023 10:21-0500 Heart rate 114 /min Catalino Waddell MD Work Phone: [facility] [employer] 03-19-2023 10:21-0500 Respiratory rate 16 /min Catalino Waddell MD Work Phone: [facility] [employer] 03-19-2023 10:21-0500 SaO2% (BldA) [Mass fraction] 95 % Catalino Waddell MD Work Phone: [facility] [employer] 03-19-2023 10:21-0500 Systolic blood pressure 141 mm[Hg] Catalino Waddell MD Work Phone: [facility] [employer] 02-18-2023 07:50-0500 Body temperature 97.81 [degF] Harjinder Darnell MD Work Phone: [facility] [employer] 02-18-2023 07:50-0500 Diastolic blood pressure 100 mm[Hg] Harjinder Darnell MD Work Phone: [facility] [employer] 02-18-2023 07:50-0500 Heart rate 93 /min Harjinder Darnell MD Work Phone: [facility] [employer] 02-18-2023 07:50-0500 Respiratory rate 16 /min Harjinder Darnell MD Work Phone: [facility] [employer] 02-18-2023 07:50-0500 SaO2% (BldA) [Mass fraction] 99 % Harjinder Darnell MD Work Phone: [facility] [employer] 02-18-2023 07:50-0500 Systolic blood pressure 164 mm[Hg] Harjinder Darnell MD Work Phone: [facility] [employer] 02-17-2023 09:17-0500 Diastolic blood pressure 93 mm[Hg] Harjinder Darnell MD Work Phone: [facility] [employer] 02-17-2023 09:17-0500 Heart rate 93 /min Harjinder Darnell MD Work Phone: [facility] [employer] 02-17-2023 09:17-0500 Respiratory rate 16 /min Harjinder Darnell MD Work Phone: [facility] [employer] 02-17-2023 09:17-0500 SaO2% (BldA) [Mass fraction] 96 % Harjinder Darnell MD Work Phone: [facility] 02-17-2023 09:17-0500 Systolic blood pressure 138 mm[Hg] Harjinder Darnell MD Work Phone: [facility] 02-17-2023 09:03-0500 Body height 180.3 cm Harjinder Darnell MD Work Phone: [facility] 02-17-2023 09:03-0500 Body mass index (BMI) [Ratio] 30.68 kg/m2 Harjinder Darnell MD Work Phone: [facility] 02-17-2023 09:03-0500 Body temperature 97.9 [degF] Harjinder Darnell MD Work Phone: [facility] 02-17-2023 09:03-0500 Body weight 99.79 kg Harjinder Darnell MD Work Phone: [facility] 02-11-2023 11:26-0500 Body temperature 97.39 [degF] Anusha Kothari MD Work Phone: [facility] 02-11-2023 11:26-0500 Diastolic blood pressure 97 mm[Hg] Anusha Kothari MD Work Phone: [facility] 02-11-2023 11:26-0500 Heart rate 104 /min Anusha Kothari MD Work Phone: [facility] 02-11-2023 11:26-0500 Respiratory rate 17 /min Anusha Kothari MD Work Phone: [facility] 02-11-2023 11:26-0500 SaO2% (BldA) [Mass fraction] 95 % Anusha Kothari MD Work Phone: [facility] 02-11-2023 11:26-0500 Systolic blood pressure 141 mm[Hg] Anusha Kothari MD Work Phone: [facility] 02-08-2023 16:46-0500 Body mass index (BMI) [Ratio] 30.13 kg/m2 Anusha Kothari MD Work Phone: [facility] [employer] 02-08-2023 16:46-0500 Body weight 95.25 kg Anusha Kothari MD Work Phone: [facility] [employer] 12-26-2022 08:25-0400 Body height 177.8 cm Lynda Rasheed MD Work Phone: [facility] [employer] 12-26-2022 08:25-0400 Body mass index (BMI) [Ratio] 32 kg/m2 Lynda Rasheed MD Work Phone: [facility] [employer] 12-26-2022 08:25-0400 Body temperature 98.29 [degF] Lynda Rasehed MD Work Phone: [facility] [employer] 12-26-2022 08:25-0400 Body weight 101.15 kg Lynda Rasheed MD Work Phone: [facility] [employer] 12-26-2022 08:25-0400 Diastolic blood pressure 82 mm[Hg] Lynda Rasheed MD Work Phone: [facility] [employer] 12-26-2022 08:25-0400 Heart rate 98 /min Lynda Rasheed MD Work Phone: [facility] [employer] 12-26-2022 08:25-0400 SaO2% (BldA) [Mass fraction] 93 % Lynda Rasheed MD Work Phone: [facility] [employer] 12-26-2022 08:25-0400 Systolic blood pressure 116 mm[Hg] Lynda Rasheed MD Work Phone: [facility] [employer] 09-25-2022 08:23-0400 Body height 177.8 cm Lynda Rasheed MD Work Phone: [facility] [employer] 09-25-2022 08:23-0400 Body mass index (BMI) [Ratio] 30.85 kg/m2 Lynda Rasheed MD Work Phone: [facility] [employer] 09-25-2022 08:23-0400 Body temperature 98.71 [degF] Lynda Rasheed MD Work Phone: [facility] [employer] 09-25-2022 08:23-0400 Body weight 97.52 kg Lynda Rasheed MD Work Phone: [facility] [employer] 09-25-2022 08:23-0400 Diastolic blood pressure 64 mm[Hg] Lynda Rasheed MD Work Phone: [facility] [employer] 09-25-2022 08:23-0400 Heart rate 112 /min Lynda Rasheed MD Work Phone: [facility] [employer] 09-25-2022 08:23-0400 SaO2% (BldA) [Mass fraction] 95 % Lynda Rasheed MD Work Phone: [facility] [employer] 09-25-2022 08:23-0400 Systolic blood pressure 88 mm[Hg] Lynda Rasheed MD Work Phone: [facility] [employer] 09-14-2022 11:20-0400 Body temperature 97.81 [degF] Triston Abraham MD Work Phone: [facility] [employer] 09-14-2022 11:20-0400 Diastolic blood pressure 96 mm[Hg] Triston Abraham MD Work Phone: [facility] [employer] 09-14-2022 11:20-0400 Heart rate 93 /min Triston Abraham MD Work Phone: [facility] [employer] 09-14-2022 11:20-0400 Respiratory rate 16 /min Triston Abraham MD Work Phone: [facility] [employer] 09-14-2022 11:20-0400 SaO2% (BldA) [Mass fraction] 93 % Triston Abraham MD Work Phone: [facility] [employer] 09-14-2022 11:20-0400 Systolic blood pressure 135 mm[Hg] Triston Abraham MD Work Phone: [facility] [employer] 09-12-2022 13:08-0400 Body height 177.8 cm Triston Abraham MD Work Phone: [facility] [employer] 09-10-2022 19:54-0400 Body mass index (BMI) [Ratio] 28.7 kg/m2 Triston Abraham MD Work Phone: [facility] [employer] 09-10-2022 19:54-0400 Body weight 90.72 kg Triston Abraham MD Work Phone: [facility] [employer] 08-01-2022 08:27-0400 Body height 177.8 cm Lynda Rasheed MD Work Phone: [facility] [employer] 08-01-2022 08:27-0400 Body mass index (BMI) [Ratio] 31.85 kg/m2 Lynda Rasheed MD Work Phone: [facility] [employer] 08-01-2022 08:27-0400 Body temperature 99 [degF] Lynda Rasheed MD Work Phone: [facility] [employer] 08-01-2022 08:27-0400 Body weight 100.7 kg Lynda Rasheed MD Work Phone: [facility] [employer] 08-01-2022 08:27-0400 Diastolic blood pressure 76 mm[Hg] Lynda Rasheed MD Work Phone: [facility] [employer] 08-01-2022 08:27-0400 Heart rate 93 /min Lynda Rasheed MD Work Phone: [facility] [employer] 08-01-2022 08:27-0400 SaO2% (BldA) [Mass fraction] 95 % Lynda Rasheed MD Work Phone: [facility] [employer] 08-01-2022 08:27-0400 Systolic blood pressure 105 mm[Hg] Lynda Rasheed MD Work Phone: [facility] [employer] 07-23-2022 10:17-0400 Diastolic blood pressure 94 mm[Hg] Arsenio Bookermbyasmani DO Work Phone: [facility] [employer] 07-23-2022 10:17-0400 Heart rate 110 /min Arsenio Gombash DO Work Phone: [facility] [employer] 07-23-2022 10:17-0400 Respiratory rate 18 /min Arsenio Villalta DO Work Phone: [facility] [employer] 07-23-2022 10:17-0400 SaO2% (BldA) [Mass fraction] 96 % Arsenio Gombash DO Work Phone: [facility] [employer] 07-23-2022 10:17-0400 Systolic blood pressure 136 mm[Hg] Arsenio Gombash DO Work Phone: [facility] [employer] 07-23-2022 09:57-0400 Body temperature 99.81 [degF] Arsenio Lauraash DO Work Phone: [facility] [employer] 07-23-2022 09:19-0400 Body height 177.8 cm Arsenio Gombash DO Work Phone: [facility] [employer] 07-23-2022 09:19-0400 Body mass index (BMI) [Ratio] 31.85 kg/m2 Arseniodahiana Sanchezash DO Work Phone: [facility] [employer] 07-23-2022 09:19-0400 Body weight 100.7 kg Arsenio Villalta DO Work Phone: [facility] [employer] 06-12-2022 10:08-0400 Body height 180.3 cm Lynda Rasheed MD Work Phone: [facility] 06-12-2022 10:08-0400 Body mass index (BMI) [Ratio] 31.1 kg/m2 Lynda Rasheed MD Work Phone: [facility] 06-12-2022 10:08-0400 Body weight 101.15 kg Lynda Rasheed MD Work Phone: [facility] 06-12-2022 10:08-0400 Diastolic blood pressure 74 mm[Hg] Lynda Rasheed MD Work Phone: [employer] 06-12-2022 10:08-0400 Heart rate 116 /min Lynda Rasheed MD Work Phone: [employer] 06-12-2022 10:08-0400 SaO2% (BldA) [Mass fraction] 94 % Lynda Rasheed MD Work Phone: [facility] [employer] 06-12-2022 10:08-0400 Systolic blood pressure 118 mm[Hg] Lynda Rasheed MD Work Phone: [facility] [employer] 09-29-2021 08:21-0400 Body temperature 97.9 [degF] Dipesh Nesheim DO Work Phone: [facility] 09-29-2021 08:21-0400 Diastolic blood pressure 109 mm[Hg] Dipesh Nesheim DO Work Phone: [facility] 09-29-2021 08:21-0400 Heart rate 104 /min Dipesh Nesheim DO Work Phone: [facility] 09-29-2021 08:21-0400 Respiratory rate 16 /min Dipesh Nesheim DO Work Phone: [facility] 09-29-2021 08:21-0400 SaO2% (BldA) [Mass fraction] 94 % Dipesh Nesheim DO Work Phone: [facility] 09-29-2021 08:21-0400 Systolic blood pressure 158 mm[Hg] Dipesh Nesheim DO Work Phone: [facility] 09-27-2021 00:45-0400 Body height 180.3 cm Dipesh Nesheim DO Work Phone: [facility] 09-27-2021 00:45-0400 Body mass index (BMI) [Ratio] 28.41 kg/m2 Dipesh Nesheim DO Work Phone: [facility] 09-27-2021 00:45-0400 Body weight 92.4 kg Dipesh Nesheim DO Work Phone: [facility] 06-09-2021 15:07-0500 Body temperature 97.5 [degF] Catalino Diallo DO Work Phone: [facility] [facility] 06-09-2021 15:07-0500 Diastolic blood pressure 97 mm[Hg] Catalino Diallo DO Work Phone: [facility] 06-09-2021 15:07-0500 Heart rate 104 /min Catalino Yuaci DO Work Phone: [facility] 06-09-2021 15:07-0500 Respiratory rate 22 /min Catalino Yuaci DO Work Phone: [facility] 06-09-2021 15:07-0500 SaO2% (BldA) [Mass fraction] 98 % Catalino Yuaci DO Work Phone: [facility] 06-09-2021 15:07-0500 Systolic blood pressure 179 mm[Hg] Catalino Yuaci DO Work Phone: [facility] 06-08-2021 07:25-0500 Body height 180.3 cm Catalino Yuaci DO Work Phone: [facility] 06-08-2021 07:25-0500 Body mass index (BMI) [Ratio] 28.59 kg/m2 Catalino Yuaci DO Work Phone: [facility] 06-08-2021 07:25-0500 Body weight 92.99 kg Catalino Diallo DO Work Phone: [facility] 04-06-2021 09:38-0500 Body temperature 98.1 [degF] Joon Sheikh MD Work Phone: [facility] 04-06-2021 09:38-0500 Diastolic blood pressure 108 mm[Hg] Joon Sheikh MD Work Phone: [facility] 04-06-2021 09:38-0500 Heart rate 100 /min Joon Sheikh MD Work Phone: [facility] 04-06-2021 09:38-0500 Respiratory rate 20 /min Joon Sheikh MD Work Phone: [facility] 04-06-2021 09:38-0500 SaO2% (BldA) [Mass fraction] 95 % Joon Sheikh MD Work Phone: [facility] 04-06-2021 09:38-0500 Systolic blood pressure 160 mm[Hg] Joon Sheikh MD Work Phone: [facility] 06-10-2020 09:21-0500 BP Diastolic 104 mm[Hg] Antonio VASQUEZ Work Phone: 06-10-2020 09:21-0500 BP Systolic 136 mm[Hg] Antonio VASQUEZ Work Phone: 06-10-2020 09:21-0500 Pulse (Heart Rate) 109 /min Antonio VASQUEZ Work Phone: 06-10-2020 09:21-0500 Pulse Oximetry 96 % Antonio VASQUEZ Work Phone: 06-10-2020 09:21-0500 Respiratory Rate 18 /min Antonio VASQUEZ Work Phone: 06-10-2020 09:00-0500 Body Temperature 97.5 [degF] Antonio VASQUEZ Work Phone: 06-10-2020 08:24-0500 BMI (Body Mass Index) 27.89 kg/m2 Antonio VASQUEZ Work Phone: 06-10-2020 08:24-0500 Body weight 90.72 kg Antonio VASQUEZ Work Phone: 06-10-2020 08:24-0500 Height 180.3 cm Antonio VASQUEZ Work Phone: 11-08-2019 10:09-0400 Body Temperature 99.19 [degF] [employer] [place] 11-08-2019 10:09-0400 BP Diastolic 99 mm[Hg] [employer] [place] 11-08-2019 10:09-0400 BP Systolic 140 mm[Hg] [employer] [place] 11-08-2019 10:09-0400 Pulse (Heart Rate) 86 /min [employer] [facility] [place], [place] 11-08-2019 10:09-0400 Pulse Oximetry 96 % [employer] [place], [place] 11-08-2019 10:09-0400 Respiratory Rate 16 /min Harjinder Darnell [facility], [place] 09-02-2019 11:34-0400 Body Temperature 97.2 [degF] Lynda Rasheed [facility], [place] 09-02-2019 11:34-0400 BP Diastolic 92 mm[Hg] [facility] [place] 09-02-2019 11:34-0400 BP Systolic 125 mm[Hg] [facility] [place] 09-02-2019 11:34-0400 Pulse (Heart Rate) 107 /min [facility] [place] 09-02-2019 11:34-0400 Pulse Oximetry 94 % [facility] [place] 09-02-2019 11:34-0400 Respiratory Rate 20 /min [facility] [place] 08-31-2019 17:13-0400 BMI (Body Mass Index) 29.29 kg/m2 [facility] [place] 08-31-2019 17:13-0400 Body weight 95.25 kg [facility] [place] 08-31-2019 17:13-0400 Height 180.3 cm [facility] [place] 06-05-2019 09:01-0500 Body Temperature 97.7 [degF] [facility], [place] 06-05-2019 09:01-0500 BP Diastolic 104 mm[Hg] [facility], [place] 06-05-2019 09:01-0500 BP Systolic 155 mm[Hg] [facility] [place] 06-05-2019 09:01-0500 Pulse (Heart Rate) 100 /min Catalino Wilcox [facility], [place] 06-05-2019 09:01-0500 Pulse Oximetry 95 % Catalino Wilcox [facility], [place] 06-05-2019 09:01-0500 Respiratory Rate 12 /min Catalino Wilcox [facility], [place] 03-08-2019 13:36-0500 Pulse (Heart Rate) 102 /min José Miguel Martinez [facility], [place] 03-08-2019 13:36-0500 Pulse Oximetry 96 % José Miguel Martinez [facility] , [place] 03-08-2019 13:36-0500 Respiratory Rate 14 /min José Miguel Martinez [facility], [place] 03-08-2019 13:09-0500 Body Temperature 98.49 [degF] José Miguel Martinez [facility], [place] 03-08-2019 13:09-0500 BP Diastolic 95 mm[Hg] [facility] [place] 03-08-2019 13:09-0500 BP Systolic 137 mm[Hg] José Miguel Talbot [facility] [place] Encounters Encounter Date Encounter Type Care Provider Facility Start: 09-20-2024 Non-patient / Non-visit Dr. Bryan Hernandez [facility] Work Phone: Start: 09-19-2024 Non-patient / Non-visit Dr. Bryan Hernandez [facility] Work Phone: Start: 09-18-2024 Non-patient / Non-visit Dr. Bryan Hernandez [facility] Work Phone: Start: 09-17-2024 ambulatory Out of Town Doctor Everett han:FELA Start: 09-17-2024 End: 09-20-2024 Evaluation and management of inpatient Dr. Joon Vinson DO [facility] Work Phone: Start: 08-14-2024 End: 09-01-2024 Telephone encounter [facility] Comment on above: Med Refill Start: 08-14-2024 End: 08-14-2024 Office outpatient visit 25 minutes Lynda Rasheed MD Work Phone: [facility] Comment on above: Screening for colon cancer (Primary Dx); Psoriasiform seborrheic dermatitis; Elevated liver enzymes; Neuropathy; Herpes zoster with other complication; Shingles (herpes zoster) polyneuropathy Start: 08-14-2024 End: 08-14-2024 ambulatory LYNDA RASHEED [facility] Start: 08-13-2024 End: 08-13-2024 Subsequent hospital visit by physician Luis Branch MD Work Phone: [facility] Addiction IOP Start: 08-12-2024 End: 08-13-2024 Refill Rashad Mohitdevyn DO Work Phone: [facility] Detox Unit 4E Start: 08-10-2024 End: 08-10-2024 Emergency department patient visit Catalino Waddell MD Work Phone: [facility] ED Comment on above: Acute pain associate d with herpes zoster (Primary Dx) Start: 08-07-2024 End: 10-14-2024 Telephone encounter Lynda Rasheed MD Work Phone: [facility] [employer] Comment on above: Medication Question Start: 08-03-2024 End: 08-06-2024 Evaluation and management of inpatient Matthewyasmani Demarco DO Work Phone: [facility] Detox Unit 4E Comment on above: Alcohol withdrawal s yndrome without complication (HCC) (Primary Dx); Alcohol dependence with inpatient treatment (HCC); Herpes zoster without complication; Shingles (herpes zoster) polyneuropathy Start: 07-01-2024 End: 07-01-2024 Emergency department patient visit Goyo Melara MD Work Phone: [facility] ED Comment on above: Subcutaneous hematom a (Primary Dx); Contusion of dorsum of foot Start: 06-25-2024 End: 07-16-2024 Telephone encounter Yasemin Goins CNP Work Phone: [facility] [place] Start: 06-22-2024 End: 06-23-2024 Refill Grayson Kessler PA-C Work Phone[facility] Comment on above: Psoriasiform seborrh eic dermatitis; Elevated liver enzymes Start: 06-16-2024 End: 06-16-2024 Office outpatient visit 25 minutes Lynda Rasheed MD Work Phone: [facility] Comment on above: Elevated LFTs (Prima ry Dx); Lombardo esophagus with esophagitis; Elevated liver enzymes; Cigarette smoker; Severe alcohol use disorder (HCC); Screening for colon cancer; Lumbar back pain Start: 06-16-2024 End: 06-16-2024 [facility] Start: 06-11-2024 End: 06-11-2024 Subsequent hospital visit by physician Myra Darden MD Work Phone: [facility] CT Comment on above: Pulmonary nodule Start: 06-11-2024 End: 06-11-2024 ambulatory [facility] Start: 06-08-2024 End: 06-08-2024 Telephone encounter Lynda Rasheed MD Work Phone: [facility] Clinical Communication Start: 06-03-2024 End: 06-03-2024 Telephone encounter Kristin Goins CNP Work Phone: [facility] [place] Comment on above: Test Scheduling Start: 06-02-2024 End: 06-04-2024 Evaluation and management of inpatient Catalino Diallo DO Work Phone: [facility] Detox Unit 4E Comment on above: Alcohol withdrawal w ith inpatient treatment, uncomplicated (HCC) (Primary Dx); Alcohol use disorder; Severe alcohol use disorder (HCC) Start: 06-01-2024 End: 06-02-2024 Refill [facility] Comment on above: Psoriasiform seborrh eic dermatitis; Elevated liver enzymes Start: 05-25-2024 End: 05-25-2024 Emergency department patient visit Goyo Melara MD Work Phone: [facility] ED Comment on above: Closed head injury, initial encounter (Primary Dx); Alcoholic intoxication without complication (CMS/HCC) (HCC) Start: 05-23-2024 End: 05-26-2024 Telephone encounter Lynda Rasheed MD Work Phone: [facility] Clinical Communication Comment on above: Test Scheduling Start: 05-21-2024 End: 05-21-2024 Telephone encounter Mp Dempsey MD Work Phone: [facility]rology [facility] [place] Start: 05-20-2024 End: 05-20-2024 ambulatory [facility] Start: 05-20-2024 End: 05-20-2024 Transitional care manage srvc 14 day discharge Lynda Rasheed MD Work Phone: [facility] [place] Comment on above: Alcohol abuse (Prima ry Dx); Psoriasiform seborrheic dermatitis; Elevated liver enzymes; Screening for colon cancer; Elevated LFTs; ED (erectile dysfunction) of non-organic origin; Urinary frequency; Pulmonary nodule; Lombardo esophagus with esophagitis Start: 05-14-2024 End: 05-14-2024 Subsequent hospital visit by physician Luis Branch MD Work Phone: [facility] Addiction IOP Start: 05-14-2024 End: 05-14-2024 ambulatory [facility] Start: 05-07-2024 End: 05-10-2024 Evaluation and management of inpatient Johnny [place] DO Work Phone: [facility] Detox Unit 4E Comment on above: Alcohol withdrawal s yndrome with complication, with unspecified complication (HCC) (Primary Dx); Alcohol use disorder Start: 04-09-2024 End: 04-12-2024 Evaluation and management of inpatient Irisn Joao Whiteside DO Work Phone: [facility] Unit AAU 2 Comment on above: Alcoholic intoxicati on without complication (CMS/HCC) (HCC) (Primary Dx) Start: 02-28-2024 End: 02-28-2024 ambulatory [facility] Start: 02-28-2024 End: 02-28-2024 Office outpatient new 45 minutes Myra Darden MD Work Phone: [facility] [place] Comment on above: Pulmonary emphysema, unspecified emphysema type (HCC) (Primary Dx); Pulmonary nodule; Cigarette nicotine dependence with other nicotine-induced disorder; Alcohol abuse Start: 02-18-2024 End: 02-18-2024 Documentation procedure Fadia Jolantaserena [facility] [place] Comment on above: Care Coordination (L kaitlin Nodule Review Conference Recommendations 02/18/24) Start: 02-13-2024 End: 02-14-2024 Telephone encounter Fadia Hartley [facility] [place] Comment on above: Care Coordination (L kaitlin Rads 4A Lung Screening CT- Expedited lung nodule clinic eval recommended) Start: 02-11-2024 End: 02-11-2024 Subsequent hospital visit by physician Lynda Rasheed MD Work Phone: [facility] CT Comment on above: Current smoker Start: 02-11-2024 End: 02-11-2024 ambulatory [facility] Start: 02-06-2024 End: 02-06-2024 Refill Lynda Rasheed MD Work Phone: [facility] Comment on above: Arrived Start: 02-05-2024 End: 02-05-2024 Office outpatient visit 25 minutes Lynda Rasheed MD Work Phone: [facility] Comment on above: Screening PSA (prost ate specific antigen) (Primary Dx); Psoriasiform seborrheic dermatitis; Elevated liver enzymes; Screening for colon cancer; Current smoker Start: 02-05-2024 End: 02-05-2024 ambulatory [facility] Start: 02-03-2024 End: 02-03-2024 Subsequent hospital visit by physician Luis Branch MD Work Phone: [facility] Comment on above: Arrived Start: 01-28-2024 End: 01-28-2024 ambulatory [facility] Start: 01-28-2024 End: 01-28-2024 Subsequent hospital visit by physician Luis Branch MD Work Phone: [facility] Comment on above: Severe alcohol use d isorder (HCC) Start: 01-20-2024 End: 01-24-2024 Evaluation and management of inpatient Triston Abraham MD Work Phone: [facility] Detox [facility]E Comment on above: Alcohol abuse (Prima ry Dx) Start: 12-11-2023 End: 12-11-2023 Subsequent hospital visit by physician Yakov Owen MD Work Phone: [facility] Addiction IOP Comment on above: Arrived Start: 12-03-2023 End: 12-03-2023 Refill Lynda Rasheed MD Work Phone: [facility] Comment on above: Chronic left shoulde r pain Start: 11-27-2023 End: 11-30-2023 Evaluation and management of inpatient Steve Demarco MD Work Phone: [facility] Medical Surgical Unit MSU 4S Comment on above: Alcohol withdrawal s yndrome with perceptual disturbance (HCC) (Primary Dx) Start: 08-26-2023 Refill Tiki Clark ett RN INFUSION - PARADI TENDER Work Phone: [facility] Start: 08-01-2023 Refill Lynda pedersen MD Work Phone: [facility] Comment on above: Chronic left shoulde r pain Start: 07-27-2023 End: 07-31-2023 Evaluation and management of inpatient Triston Abraham MD Work Phone: [facility] Comment on above: Alcohol withdrawal s yndrome without complication (HCC) (Primary Dx); Chronic left shoulder pain Start: 07-19-2023 Refill Lynda pedersen MD Work Phone: [facility] Comment on above: Chronic left shoulde r pain Start: 07-08-2023 End: 07-11-2023 Evaluation and management of inpatient Catalino Mujica MD Work Phone: [facility] Comment on above: Alcohol abuse (Prima ry Dx) Start: 06-26-2023 Refill Lynda pedersen MD Work Phone: [facility] Comment on above: Psoriasiform seborrh eic dermatitis Start: 06-15-2023 Telephone encounter Karolina Krueger RN [facility] ED Start: 06-13-2023 Telephone encounter Catalino Watts [facility] ED Start: 06-06-2023 End: 06-06-2023 Subsequent hospital visit by physician Dori Franco MD Work Phone: [facility] Addiction IOP Comment on above: No Show Start: 05-20-2023 End: 05-23-2023 Evaluation and management of inpatient Scooter Luna MD Work Phone: [facility] Medical Surgical Unit MSU 1E Comment on above: Alcohol withdrawal s yndrome, uncomplicated (HCC) (Primary Dx) Start: 04-24-2023 Refill Lynda pedersen MD Work Phone: [facility] Comment on above: Chronic left shoulde r pain Start: 03-19-2023 End: 03-19-2023 Subsequent hospital visit by physician [facility] [employer] [facility] Radiology Comment on above: Arrived Start: 03-19-2023 End: 03-19-2023 Emergency department patient visit Catalino Waddell MD Work Phone: [facility] ED Comment on above: Contusion of left mi ddle finger without damage to nail, initial encounter (Primary Dx) Start: 02-18-2023 End: 02-18-2023 Emergency department patient visit Harjinder Darnell MD Work Phone: [facility] ED Comment on above: Dental abscess (Prim hali Dx) Start: 02-17-2023 End: 02-17-2023 Emergency department patient visit Harjinder Darnell MD Work Phone: [facility] ED Comment on above: Pain, dental (Primar y Dx) Start: 02-08-2023 End: 02-11-2023 Evaluation and management of inpatient Anusha Kothari MD Work Phone: [facility] Detox Unit 4E Comment on above: Alcohol withdrawal s yndrome without complication (HCC) (Primary Dx); Alcoholism (CMS/HCC) (HCC) Start: 01-28-2023 Refill Lynda pedersen MD Work Phone: [facility] Comment on above: Chronic left shoulde r pain Start: 12-26-2022 End: 12-26-2022 Office outpatient visit 25 minutes Lynda Rasheed MD Work Phone: [facility] Medicine Comment on above: Screening for colon cancer (Primary Dx); Lombardo's esophagus determined by endoscopy; Psoriasiform seborrheic dermatitis; Alcohol use disorder, severe (HCC); Lumbar back pain with radiculopathy affecting lower extremity; Cigarette smoker Start: 12-07-2022 Refill Lynda pedersen MD Work Phone: [facility] Start: 11-01-2022 End: 11-01-2022 ambulatory Lynda Rasheed MD Work Phone: [facility] Laboratory Comment on above: Arrived Hyperglycemia, unspe cified (Primary Dx); Other specified abnormal findings of blood chemistry Start: 10-09-2022 End: 10-09-2022 Office outpatient visit 25 minutes Papito Hood MD Work Phone: [facility] Behavioral Health Comment on above: Alcohol use disorder , severe (HCC) (Primary Dx); Alcohol withdrawal syndrome with complication (HCC); Encounter for monitoring naltrexone therapy Start: 10-01-2022 Telephone encounter Lynda fish MD Work Phone: [facility] Comment on above: Results Start: 09-29-2022 End: 09-29-2022 ambulatory Lynda Rasheed MD Work Phone: [facility] Laboratory Comment on above: Arrived Abnormal levels of o ther serum enzymes (Primary Dx) Start: 09-25-2022 End: 09-25-2022 Office outpatient visit 25 minutes Lynda Rasheed MD Work Phone: [facility] Comment on above: Chronic left shoulde r pain (Primary Dx); Elevated liver enzymes; Psoriasis; Screening for colon cancer; Alcohol abuse Chronic left shoulde r pain (Primary Dx); Elevated liver enzymes; Psoriasiform seborrheic dermatitis; Screening for colon cancer; Alcohol abuse Start: 09-22-2022 Refill Lynda pedersen MD Work Phone: [facility] Comment on above: Chronic left shoulde r pain Start: 09-14-2022 Refill Lynda pedersen MD Work Phone: [facility] Comment on above: Elevated liver enzym es Start: 09-10-2022 End: 09-14-2022 Evaluation and management of inpatient Triston Abraham MD Work Phone: [facility] DETOX Comment on above: Alcohol withdrawal s yndrome without complication (HCC) (Primary Dx); Alcohol use disorder Start: 08-01-2022 End: 08-01-2022 Office outpatient visit 25 minutes Lynda Rasheed MD Work Phone: [facility] Comment on above: Uncomplicated alcoho l dependence (HCC) (Primary Dx); Elevated liver enzymes; Abnormal EKG; SOB (shortness of breath); Lombardo's esophagus with dysplasia; Screening for colon cancer; ED (erectile dysfunction) of non-organic origin Start: 07-21-2022 End: 07-23-2022 Evaluation and management of inpatient Arsenio Villalta DO Work Phone: [facility]E TELEMETRY Comment on above: Hematemesis with rubén sea (Primary Dx); Alcohol withdrawal syndrome without complication (HCC) Start: 07-16-2022 Refill Lynda pedersen MD Work Phone: [facility] Comment on above: Chronic left shoulde r pain Start: 07-14-2022 Refill Lynda pedersen MD Work Phone: [facility] Comment on above: Chronic left shoulde r pain; Elevated liver enzymes; Psoriasis Start: 07-11-2022 Telephone encounter Lynda fish MD Work Phone: [facility] Comment on above: Results Start: 07-09-2022 End: 07-09-2022 ambulatory Lynda Rasheed MD Work Phone: [facility] Laboratory Start: 07-09-2022 End: 07-09-2022 Subsequent hospital visit by physician Lynda Rasheed MD Work Phone: [facility] Radiology Comment on above: Low back pain, unspe cified; Pain in left shoulder; Other chronic pain; Pain in right shoulder Abnormal levels of o ther serum enzymes (Primary Dx) Low back pain, unspe cified (Primary Dx); Pain in left shoulder; Other chronic pain; Pain in right shoulder Start: 06-12-2022 Telephone encounter Rosalina HOOKS Work Phone: [facility] Dermatology Start: 06-12-2022 End: 06-12-2022 Office outpatient visit 25 minutes Lynda Rasheed MD Work Phone: [facility] Medicine Comment on above: Elevated liver enzym es (Primary Dx); Chronic left shoulder pain; Psoriasis; Lumbar back pain; Screening for colon cancer; Chronic pain of both shoulders; Alcohol abuse Start: 09-26-2021 End: 09-29-2021 Evaluation and management of inpatient Dipesh Beckman DO Work Phone: [facility] 2E TELEMETRY Comment on above: [...] patient visit Joon Sheikh MD Work Phone: [facility] Comment on above: Strain of lumbar reg ion, initial encounter (Primary Dx) Start: 11-18-2020 End: 11-18-2020 Subsequent hospital visit by physician Lynda Rasheed MD Work Phone: [facility] Comment on above: Chronic cough Start: 09-01-2020 End: 09-01-2020 Subsequent hospital visit by physician Lynda Rasheed MD Work Phone: [facility] Laboratory Comment on above: Colon cancer screeni ng; Elevated LFTs Start: 06-09-2020 End: 06-10-2020 Emergency department patient visit Antonio Mauro Work Phone: [facility] 2E TELEMETRY Comment on above: Hematemesis with rubén sea (Primary Dx); Acute alcoholic intoxication without complication (HCC); Tachycardia; Elevated lactic acid level Start: 11-08-2019 End: 11-08-2019 Emergency department patient visit Harjinder Lebron Felixpatricia Work Phone: [facility] ED Comment on above: Acute pharyngitis, u nspecified etiology (Primary Dx) Start: 08-31-2019 Patient encounter procedure Lyndaotilia CaoIdooblechet [employer], [place] Start: 08-19-2019 Patient encounter procedure Lynda [employer], [place] Start: 08-19-2019 End: 08-19-2019 Office outpatient visit 25 minutes Lynda Rasheed Work Phone: [facility] Comment on above: Localized swelling, mass and lump, neck (Primary Dx) Start: 06-05-2019 Patient encounter procedure Lynda Rasheed [employer] [place] Start: 06-05-2019 End: 06-05-2019 Emergency department patient visit Catalino Wilcox Work Phone: [facility] Comment on above: Acute exacerbation o f chronic low back pain (Primary Dx); Sciatica of left side Start: 03-08-2019 End: 03-08-2019 Emergency department patient visit José Miguel Sharmila Talbot Work Phone: [facility] ED Comment on above: Strain of lumbar reg ion, initial encounter (Primary Dx) Start: 02-14-2019 End: 02-14-2019 Subsequent hospital visit by physician Lynda Rasheed Work Phone: [facility] Laboratory Comment on above: Mixed hyperlipidemia ; Eczema, unspecified type; Cough Procedures Date Procedure Procedure Detail Performing Clinician Start: 09-19-2024 Serum inorganic phosphate measurement Out Town Doctor Start: 09-18-2024 Estimated creatinine clearance [facility] Town Doctor Start: 09-17-2024 Estimated creatinine clearance Out Town Doctor Start: 09-17-2024 Methadone measurement, urine Out [facility] Do ctor Start: 08-14-2024 Follow-up visit SAURABH MORAN Start: 08-06-2024 Comprehensive metabolic panel Jonatan rachel MD Work Phone: Start: 08-04-2024 Carbohydrate deficient transferrin Jonatan Mckeon MD Work Phone: Start: 08-03-2024 Ecg routine ecg w/least 12 lds trcg only w/o i&r Debby Oplinger PA-C Work Phone: Start: 08-03-2024 Comprehensive metabolic panel Debby Lam PA-C Work Phone: Start: 08-03-2024 End: 08-03-2024 Drug test def 1-7 classes Debby Childs er PA-C Work Phone: Start: 08-03-2024 SARS-CoV-2 (COVID-19) Ag [Presence] in Respiratory specimen by Rapid immunoassay Debby Mauriceinger PA-C Work Phone: Start: 07-01-2024 Radiologic examination foot 2 views Goyo Melara MD Work Phone: Start: 06-16-2024 Follow-up visit [facility] Start: 06-02-2024 Comprehensive metabolic panel Shelly emerson RN INFUSION - PARADI TENDER Work Phone: Start: 06-02-2024 End: 06-02-2024 Drug test def 1-7 classes Shelly Clarke RN INFUSION - PARADI TENDER Work Phone: Start: 06-02-2024 SARS-CoV-2 (COVID-19) Ag [Presence] in Respiratory specimen by Rapid immunoassay Shelly Clarke APRN - PARADI TENDER Work Phone: Start: 05-25-2024 Ct cervical spine w/o contrast material Goyo Melara MD Work Phone: Start: 05-25-2024 Ct head/brain w/o contrast material Goyo Melara MD Work Phone: Start: 05-20-2024 Follow-up visit [facility] MORAN Start: 05-07-2024 Comprehensive metabolic panel Shelly Frank ki RN INFUSION - PARADI TENDER Work Phone: Start: 05-07-2024 End: 05-07-2024 Drug test def 1-7 classes Shelly Clarke RN INFUSION - PARADI TENDER Work Phone: Start: 05-07-2024 SARS-CoV-2 (COVID-19) Ag [Presence] in Respiratory specimen by Rapid immunoassay Shelly Clarke RN INFUSION [place] Work Phone: Start: 04-11-2024 Comprehensive metabolic panel Luis sánchez MD Work Phone: Start: 04-09-2024 SARS-CoV-2 (COVID-19) Ag [Presence] in Respiratory specimen by Rapid immunoassay Irisanum Joao Miesha DO Work Phone: Start: 04-09-2024 UNCONFIRMED DRUG SCREEN Irisanum Joao Miesha DO Work Phone: Start: 04-09-2024 Urinalysis complete panel - Urine Irisanum Joao Miesha DO Work Phone: Start: 04-09-2024 Urnls dip stick/tablet rgnt auto w/o microscopy Kolby Shepherd Miesha DO Work Phone: Start: 04-09-2024 Comprehensive metabolic panel Irisanum Shepherd J oya DO Work Phone: Start: 04-09-2024 End: 04-09-2024 Drug test def 1-7 classes Kolby Shepherd Miesha DO Work Phone: Start: 04-09-2024 Ecg routine ecg w/least 12 lds i&r only Kolby Shepherd Miesha DO Work Phone: Start: 02-28-2024 Follow-up visit [facility] MORAN Start: 02-05-2024 Follow-up visit [facility] MORAN Start: 01-22-2024 Comprehensive metabolic panel Soraida zuniga [...] End: 11-27-2023 Comprehensive metabolic panel Shelly emerson RN INFUSION - PARADI TENDER Work Phone: Start: 11-27-2023 End: 11-27-2023 Drug test def 1-7 classes Shelly Clarke RN INFUSION - PARADI TENDER Work Phone: Start: 11-27-2023 SARS-CoV-2 (COVID-19) Ag [Presence] in Respiratory specimen by Rapid immunoassay Shelly Clarke RN INFUSION - PARADI TENDER Work Phone: Start: 07-30-2023 OXYGEN THERAPY Mainor M Fredy DO Work Phone: Start: 07-30-2023 Drug screen quantitative phenobarbital Tiki Ponce RN INFUSION - STOREROOM CLERK Work Phone: Start: 07-29-2023 OXYGEN THERAPY Mainor [...] Start: 05-20-2023 MEDICATION ASSISTED TREATMENT PANEL Eda Enriquez RN INFUSION - PARADI TENDER Work Phone: Start: 05-20-2023 Urinalysis complete panel [...] Start: 02-11-2023 Hepatic function panel Tiki Ponce RN INFUSION - STOREROOM CLERK Work Phone: Start: 02-10-2023 Hepatic function panel Tiki Ponce RN INFUSION - STOREROOM CLERK Work Phone: Start: 02-08-2023 Urnls dip stick/tablet [...] lds trcg only w/o i&r Robyn Edmond RN INFUSION - PARADI TENDER Work Phone: Start: 09-10-2022 Ct abdomen & [...] Phone: Start: 07-21-2022 Comprehensive metabolic panel Arsenio A Go mbash DO Work Phone: Start: 07-21-2022 End: 07-21-2022 Drug test def 1-7 classes Arsenio Rodríguez h DO Work Phone: Start: 07-21-2022 Thyrotropin [...] 09-26-2021 Radiologic exam chest single view Dipesh G Nesheim DO Work Phone: Start: 06-08-2021 ENDOSCOPY REPORT Physician Generic Start: 06-08-2021 Level iv surg pathology gross&microscopic exam Fnu Sanjuana GALVEZ Work Phone: Start: 06-08-2021 Basic metabolic panel calcium total Rob Bryant Lopez DO Work Phone: Start: 06-07-2021 Assay of lactate Hany tang MD Work Phone: Start: 06-07-2021 Assay of lactate Catalino Bass MD Work Phone: Start: 06-06-2021 Computed tomography of abdomen and pelvis with contrast Catalino Diallo DO Work Phone: Start: 06-06-2021 Antibody screen Catalino Diallo DO Work Phone: Start: 06-06-2021 ADD ON LAB TEST Deep Demarco DO Work Phone: Start: 06-06-2021 Assay of ethanol Catalino Diallo DO Work Phone: Start: 06-06-2021 Blood typing serologic abo Catalino soliz DO Work Phone: Start: 06-06-2021 Comprehensive metabolic [...] Phone: Start: 06-09-2020 Assay of lactate Antonio Ortizumilli Work Phone: Start: 06-09-2020 Radiologic exam chest single view Antonio Ortizumilli Work Phone: Start: 06-09-2020 Assay of ethanol Antonio Adusumilli Work Phone: Start: 06-09-2020 Assay of lipase Antonio Adusumilli Work Phone: Start: 06-09-2020 Blood count complete auto&auto difrntl wbc Antonio Ortizumilli Work Phone: Start: 06-09-2020 Comprehensive metabolic panel Antonio Adus umilli Work Phone: Start: 06-09-2020 Ecg routine ecg w/least 12 lds w/i&r Antonio Adusumilli Work Phone: Start: 08-31-2019 Assay of ethanol Shelly Clarke Work Phone: Start: 08-31-2019 Assay of lipase Shelly Clarke Work Phone: Start: 08-31-2019 Blood count complete auto&auto difrntl wbc Shelly Clarke Work Phone: Start: 08-31-2019 Comprehensive metabolic panel Shelly emerson Work Phone: Start: 08-31-2019 Drug screen class list a Shelly Clarke Work Phone: Start: 02-14-2019 Blood count complete auto&auto difrntl wbc Lynda Rasheed Work Phone: Start: 02-14-2019 Comprehensive metabolic panel Lynda fish Work Phone: Start: 02-14-2019 Lipid panel Lynda Rasheed Work Phone: Start: 02-13-2018 [facility] Plan of Treatment Date Care Activity Detail Author Start: 11-14-2042 RSV Immunization for Adults (1 - 1-dose 75+ series) RSV Immunization for Adults (1 - 1-dose 75+ series) [facility] Start: 11-14-2032 Pneumococcal 0-64 years Vaccine (2 of 2 - PPSV23) Pneumococcal 0-64 years Vaccine (2 of 2 - PPSV23) [facility] Start: 11-14-2032 Pneumococcal 0-64 years Vaccine (2 of 2) Pneumococcal 0-64 years Vaccine (2 of 2) [facility] Work Phone: Start: 2027 RSV Immunization aged 60 or older (1 - 1-dose 60+ series) RSV Immunization aged 60 or older (1 - 1-dose 60+ series) [facility] Start: 07-10-2027 Lipid panel Lipid Panel [facility] Start: 09-01-2025 Lipid panel [facility] Start: 06-11-2025 Screening for malignant neoplasm of lung Lung Cancer Screening [facility] Start: 02-10-2025 Screening for malignant neoplasm of lung Lung Cancer Screening [facility] Start: 02-04-2025 Depression Monitoring Depression Monitoring [facility] Start: 12-05-2024 Depression Monitoring Depression Monitoring [facility] Start: 11-30-2024 Influenza vaccination [facility] Start: 11-05-2024 Depression Monitoring Depression Monitoring [facility] Start: 10-21-2024 End: 10-21-2024 Patient encounter procedure 10/21/2024 3:20 PM EDT [facility] [address] [place] [address] Lynda Rasheed MD [address] [place] [address] [facility] Start: 09-20-2024 Patient discharge [facility] Start: 09-19-2024 [facility] Start: 09-17-2024 Following clinical pathway protocol [facility] Start: 09-17-2024 Ambulation without limitation [facility] Start: 09-17-2024 Assessment of risk of venous thromboembolism [facility] Start: 09-17-2024 Inhalation therapy procedure [facility] Start: 09-17-2024 Insertion of catheter into peripheral vein [facility] Start: 09-17-2024 Measuring intake and output [facility] Start: 09-17-2024 Providing care according to standard [facility] Start: 09-17-2024 Provision of activity privileges [facility] Start: 09-17-2024 Referral to service [facility] Start: 09-17-2024 Seizure precautions [facility] Start: 09-17-2024 [facility] Start: 09-17-2024 Prothrombin time [facility] Start: 09-17-2024 Verification routine [facility] Start: 09-17-2024 Admission procedure [facility] Start: 09-17-2024 Hospital admission, emergency, from emergency room, medical nature [facility] Start: 09-17-2024 End: 09-17-2024 [facility] Start: 08-14-2024 End: 08-14-2024 Patient encounter procedure 08/14/2024 9:40 AM EDT [facility] [address] [place] [address] Lynda Rasheed MD [address] [place] [address] [facility] Start: 08-13-2024 End: 08-13-2024 Patient encounter procedure 08/13/2024 1:30 PM EDT Appointment [facility] [address] [place] [address] Luis Branch MD [address] [address] Ammon Abdul, [facility] Start: 07-28-2024 Depression Monitoring Depression Monitoring [facility] Start: 07-20-2024 Depression Monitoring Depression Monitoring [facility] Start: 06-19-2024 End: 06-19-2024 Patient encounter procedure 06/19/2024 1:40 PM EDT Office Visit [facility] Lung Nodule [facility] [address] [place] [address] Yasemin Qiuntero, RN INFUSION - PARADI TENDER [address] [place] [address] [facility] Lung Nodule [facility] Start: 06-16-2024 End: 06-16-2025 Erythrocyte sedimentation rate Sedimentation rate, automated Lab Routine Lumbar back pain Expected: 06/16/2024 (Approximate), Expires: 06/16/2025 [facility] Comment on above: Expected: 06/16/2024 (Approximate), Expi res: 06/16/2025 Start: 06-16-2024 End: 06-16-2025 Nuclear Ab [Titer] in Serum by Immunofluorescence [facility] Lab Routine Lumbar back pain Expected: 06/16/2024 (Approximate), Expires: 06/16/2025 [facility] Comment on above: Expected: 06/16/2024 (Approximate), Expi res: 06/16/2025 Start: 06-16-2024 End: 06-16-2024 Patient encounter procedure 06/16/2024 2:00 PM EDT Office Visit [facility] [address] [place] [address] Lynda Rasheed MD [address] [place], [place] [address] [facility] Start: 06-16-2024 End: 06-16-2025 Rheumatoid factor [Units/volume] in Serum or Plasma Rheumatoid factor Lab Routine Lumbar back pain Expected: 06/16/2024 (Approximate), Expires: 06/16/2025 [facility] Comment on above: Expected: 06/16/2024 (Approximate), Expi res: 06/16/2025 Start: 06-16-2024 End: 06-16-2025 XR Lumbar spine Views W flexion and W extension XR lumbar spine 4-5 view Imaging Routine Lumbar back pain Expected: 06/16/2024, Expires: 06/16/2025 [facility] Work Phone: Comment on above: Expected: 06/16/2024, Expires: Start: 06-11-2024 End: 06-11-2024 Patient encounter procedure 06/11/2024 4:15 PM EDT Appointment [facility] CT [address] [place] [address] Myra Darden MD [address] [place] [phone] [facility] [address] Start: 06-11-2024 Subsequent hospital visit by physician 06/11/2024 4:15 PM EDT Hospital Encounter [facility] [address] [place] [address] Myra Darden MD [address] [place], [place] [phone] [facility] [address] Start: 06-05-2024 End: 06-05-2024 Patient encounter procedure 06/05/2024 10:20 AM EST Office Visit [facility] [address] [phone] Kristin Lara, RN INFUSION - PARADI TENDER [address] [place] [address] [facility] Start: 05-29-2024 End: 05-29-2024 Patient encounter procedure 05/29/2024 3:30 PM EST Appointment [facility] CT Imaging [address] [place] [address] Myra Darden MD [address] [place] [address] [facility] [address] Imaging Start: 05-29-2024 End: 02-27-2025 CT Chest WO contrast CT chest wo IV contrast Imaging Routine Pulmonary nodule Expected: 05/29/2024, Expires: 02/27/2025 [facility] [employer] Work Phone: Comment on above: Expected: 05/29/2024, Expires: Start: 05-20-2024 End: 05-20-2025 Bacteria identified in Urine by Culture Urine culture (clean catch) Microbiology Routine ED (erectile dysfunction) of non-organic origin Urinary frequency Expected: 05/20/2024 (Approximate), Expires: 05/20/2025 [facility] Comment on above: Expected: 05/20/2024 (Approximate), Expi res: 05/20/2025 Start: 05-20-2024 End: 05-20-2025 CBC W Auto Differential panel - Blood CBC auto differential Lab Routine Psoriasiform seborrheic dermatitis Elevated liver enzymes Expected: 05/20/2024 (Approximate), Expires: 05/20/2025 [facility] [employer] Work Phone: Comment on above: Expected: 05/20/2024 (Approximate), Expi res: 05/20/2025 Start: 05-20-2024 End: 05-20-2025 Urinalysis complete panel - Urine Urinalysis with reflex microscopic (clean catch) Lab Routine ED (erectile dysfunction) of non-organic origin Urinary frequency Expected: 05/20/2024 (Approximate), Expires: 05/20/2025 [facility] Comment on above: Expected: 05/20/2024 (Approximate), Expi res: 05/20/2025 Start: 05-20-2024 End: 05-20-2025 US Abdomen US abdomen complete Imaging Routine Elevated LFTs Expected: 05/20/2024, Expires: 05/20/2025 [facility] Comment on above: Expected: 05/20/2024, Expires: Start: 05-20-2024 End: 05-20-2024 Patient encounter procedure 05/20/2024 1:00 PM EST [facility] [address] [place] [address] Lynda Rasheed MD [address] [place], [place] [id number] [facility] Start: 05-08-2024 End: 05-08-2024 Patient encounter procedure 05/08/2024 8:00 AM EST Office Visit [facility] [address] [place] [address] Lynda Rasheed MD [address] [place], [place] [id number] [facility] Start: 04-24-2024 End: 04-24-2024 Patient encounter procedure 04/24/2024 11:00 AM EST Office Visit [facility] [address] [place] [address] Lynda Rasheed MD [address] [place] [address] [facility] Start: 03-26-2024 End: 03-26-2024 Patient encounter procedure 03/26/2024 5:30 PM EST Appointment [facility] [address] [address] Luis Branch MD [address] [address] [facility] Start: 03-24-2024 End: 03-24-2024 Patient encounter procedure 03/24/2024 5:30 PM EST Appointment [facility] [address] [place] [address] Luis Branch MD [address] [address] [facility] Start: 03-23-2024 End: 03-23-2024 Patient encounter procedure 03/23/2024 5:30 PM EST Appointment [facility] [address] [place] [address] Luis Branch MD [address] [address] [facility] Start: 03-19-2024 End: 03-19-2024 Patient encounter procedure 03/19/2024 5:30 PM EST Appointment [facility] [address] [place] [address] Luis Branch MD [address] [address] [facility] Start: 03-17-2024 End: 03-17-2024 Patient encounter procedure 03/17/2024 5:30 PM EST Appointment [facility] [address] [place] [address] Luis Branch MD [address] [address] [facility] Start: 03-16-2024 End: 03-16-2024 Patient encounter procedure 03/16/2024 5:30 PM EST Appointment [facility] [address] [place] [address] Luis Branch MD [address] [address] Inés Hooper [facility] Start: 03-12-2024 End: 03-12-2024 Patient encounter procedure 03/12/2024 5:30 PM EST Appointment [facility] [address] [place] [address] Luis Branch MD [address] [id number] Inés Hooper [facility] Start: 03-10-2024 End: 03-10-2024 Patient encounter procedure 03/10/2024 5:30 PM EST Appointment [facility] [address] [place] [address] Luis Branch MD [address] [id number] Inés Hooper [facility] Start: 03-09-2024 End: 03-09-2024 Patient encounter procedure 03/09/2024 5:30 PM EST Appointment [facility] [address] [place] [address] Luis Branch MD [address] [address] Inés Hooper [facility] Start: 03-05-2024 End: 03-05-2024 Patient encounter procedure 03/05/2024 5:30 PM EST Appointment [facility] [address] [place] [address] Luis Branch MD [address] [id number] [facility] Start: 03-03-2024 End: 03-03-2024 Patient encounter procedure 03/03/2024 5:30 PM EST Appointment [facility] [address] [place] [address] Luis Branch MD [address] [address] Inés Hooper [facility] Start: 03-02-2024 End: 03-02-2024 Patient encounter procedure 03/02/2024 5:30 PM EST Appointment [facility] [address] [place] [phone] Luis Branch MD [address] [address] Inés Hooper [facility] Start: 02-28-2024 End: 02-28-2024 Patient encounter procedure 02/28/2024 9:30 AM EST Office Visit [facility] [place] [address] [phone] Myra Darden MD [address] [address] [facility] [place] Start: 02-27-2024 End: 02-27-2024 Patient encounter procedure 02/27/2024 5:30 PM EST Appointment [facility] [address] [place] [address] Luis Branch MD [address] [address] Inés Hooper [facility] Start: 02-25-2024 End: 02-25-2024 Patient encounter procedure 02/25/2024 5:30 PM EST Appointment [facility] [address] [place] [address] Luis Branch MD [address] [address] [facility] Start: 02-24-2024 End: 02-24-2024 Patient encounter procedure 02/24/2024 5:30 PM EST Appointment [facility] [address] [place] [address] Luis Branch MD [address] [id number] [facility] Start: 02-20-2024 End: 02-20-2024 Patient encounter procedure 02/20/2024 5:30 PM EST Appointment [facility] [address] [place] [address] Luis Branch MD [address] [address] [facility] Start: 02-18-2024 End: 02-18-2024 Patient encounter procedure 02/18/2024 5:30 PM EST Appointment [facility] [address] [place] [address] Luis Branch MD [address] [address] [facility] Start: 02-17-2024 End: 02-17-2024 Patient encounter procedure 02/17/2024 5:30 PM EST Appointment [facility] [address] [place] [address] Luis Branch MD [address] [phone] [facility] Start: 02-15-2024 Lipid panel Lipid screen [facility] Start: 02-15-2024 Lipid screen Lipid screen [facility] Start: 02-13-2024 End: 02-13-2024 Patient encounter procedure 02/13/2024 5:30 PM EST Appointment [facility] [address] [place] [address] Luis Branch MD [address] [address] [facility] Start: 02-12-2024 End: 02-12-2024 Patient encounter procedure 02/12/2024 2:00 PM EST Office Visit [facility] [address] [place] [phone] Robyn Edmond APRN - PARADI TENDER [address] [place] [address] [facility] Start: 02-11-2024 End: 02-11-2024 Patient encounter procedure 02/11/2024 5:30 PM EST Appointment [facility] [address] [place] [address] Luis Branch MD [address] [address] [facility] Start: 02-10-2024 End: 02-10-2024 Patient encounter procedure 02/10/2024 5:30 PM EST Appointment [facility] [address] [place] [address] Luis Branch MD [address] [address] [facility] Start: 02-06-2024 End: 02-06-2024 Patient encounter procedure 02/06/2024 5:30 PM EST Appointment [facility] [address] [place] [phone] Luis Branch MD [address] [place] [phone] [facility] Start: 02-05-2024 End: 02-04-2025 Comprehensive metabolic 1998 panel - Serum or Plasma Comprehensive metabolic panel Lab Routine Psoriasiform seborrheic dermatitis Elevated liver enzymes Expected: 02/05/2024 (Approximate), Expires: 02/04/2025 [facility] [employer] Work Phone: Comment on above: Expected: 02/05/2024 (Approximate), Expi res: 02/04/2025 Start: 02-05-2024 End: 02-04-2025 CT Chest for screening WO contrast CT lung screening low dose Imaging Routine Current smoker Expected: 02/05/2024, Expires: 02/04/2025 [facility] [employer] Comment on above: Expected: 02/05/2024, Expires: Start: 02-05-2024 End: 02-04-2025 Lipid 1996 panel - Serum or Plasma Lipid panel Lab Routine Psoriasiform seborrheic dermatitis Elevated liver enzymes Expected: 02/05/2024 (Approximate), Expires: 02/04/2025 [facility] [employer] Comment on above: Expected: 02/05/2024 (Approximate), Expi res: 02/04/2025 Start: 02-05-2024 End: 02-04-2025 PSA screening PSA Screening Lab Routine Psoriasiform seborrheic dermatitis Elevated liver enzymes Screening PSA (prostate specific antigen) Expected: 02/05/2024 (Approximate), Expires: 02/04/2025 [facility] [employer] Comment on above: Expected: 02/05/2024 (Approximate), Expi res: 02/04/2025 Start: 02-05-2024 End: 02-05-2024 Patient encounter procedure 02/05/2024 1:30 PM EST Appointment [facility] [address] [place] [phone] Luis Branch MD [address] [place], [place] [phone] [facility] Start: 02-05-2024 End: 02-05-2024 Patient encounter procedure 02/05/2024 8:20 AM EST Office Visit [facility] [address] [place] [address] Lynda Rasheed MD [address] [place], [place] [address] [facility] Start: 02-03-2024 End: 02-03-2024 Patient encounter procedure 02/03/2024 5:30 PM EST Appointment [facility] [address] [place] [phone] Luis Branch MD [address] [facility] [address] [place], [place] [phone] Inés Hooper [facility] Start: 01-28-2024 End: 01-28-2024 Patient encounter procedure 01/28/2024 1:30 PM EDT Appointment [facility] [address] [place] [phone] Luis Branch MD [address] [facility] [address] [place] [address] Ammon Abdul [facility] Start: 01-26-2024 Depression Monitoring Depression Monitoring [facility] Start: 01-08-2024 Depresssion Monitoring Depresssion Monitoring [facility] Start: 12-17-2023 End: 12-17-2023 Patient encounter procedure [facility] Start: 12-11-2023 End: 12-11-2023 Patient encounter procedure 12/11/2023 1:00 PM EDT Appointment [facility] [address] [place] [address] Yakov Owen MD [address] [place], [place] [phone] [facility] [facility] Start: 12-06-2023 End: 12-06-2023 Patient encounter procedure 12/06/2023 10:00 AM EDT Office Visit Formerly [facility], [facility] Health [address] [place] [id number] Luis Branch MD [address] [facility] [address] [place] [address] [facility] Start: 12-01-2023 COVID-19 Vaccine ( season) COVID-19 Vaccine () [facility] Start: 12-01-2023 COVID-19 Vaccine ( season) COVID-19 Vaccine () [facility] Start: 12-01-2023 Influenza vaccination [facility] Start: 11-02-2023 Diabetes mellitus screening Diabetes Screening [facility] Start: 09-26-2023 Pneumococcal Vaccine: 50+ Years (2 of 2 - PCV) Pneumococcal Vaccine: 50+ Years (2 of 2 - PCV) [facility] Start: 09-26-2023 Pneumococcal Vaccine: Pediatrics (0 to 5 Years) and At-Risk Patients (6 to 64 Years) (2 - PCV) Pneumococcal Vaccine: Pediatrics (0 to 5 Years) and At-Risk Patients (6 to 64 Years) (2 - PCV) [facility] Start: 09-26-2023 Pneumococcal Vaccine: Pediatrics (0 to 5 Years) and At-Risk Patients (6 to 64 Years) (2 of 2 - PCV) Pneumococcal Vaccine: Pediatrics (0 to 5 Years) and At-Risk Patients (6 to 64 Years) (2 of 2 - PCV) [facility] Start: 08-09-2023 Depresssion Monitoring Depresssion Monitoring [facility] Start: 08-05-2023 End: 08-05-2023 Patient encounter procedure 08/05/2023 1:00 PM EDT Appointment [facility] [address] [place] [phone] Dori Franco MD [address] [facility] [address] [place] [address] Kyle Gold, [facility] Start: 07-10-2023 Lipid panel Lipid Panel [facility] Start: 07-04-2023 End: 07-04-2023 Patient encounter procedure 07/04/2023 1:40 PM EDT Office Visit [facility] Medicine [address] [place] [address] Lynda Rasheed MD [address] [place], [place] [address] [facility] Start: 06-06-2023 End: 06-06-2023 Patient encounter procedure 06/06/2023 1:30 PM EST Appointment [facility] [address] [place] [address] Dori Franco MD [address] [place] [address] [address] [place] [address] Ammon Abdul, [facility] Start: 04-11-2023 Depresssion Monitoring Depresssion Monitoring [facility] Start: 04-03-2023 End: 04-03-2023 Patient encounter procedure [facility] Start: 03-12-2023 Depresssion Monitoring Depresssion Monitoring [facility] Start: 01-09-2023 End: 10-10-2023 Comprehensive metabolic 1998 panel - Serum or Plasma Comprehensive metabolic panel Lab Routine Alcohol use disorder, severe (HCC) Alcohol withdrawal syndrome with complication (HCC) Encounter for monitoring naltrexone therapy Expected: 01/09/2023 (Approximate), Expires: 10/10/2023 [facility] Work Phone: Comment on above: Expected: 01/09/2023 (Approximate), Expi res: 10/10/2023 Start: 12-26-2022 End: 12-26-2022 Patient encounter procedure [facility] Start: 11-30-2022 COVID-19 Vaccine ( season) COVID-19 Vaccine ( season) [facility] Start: 11-30-2022 Influenza vaccination [facility] Start: 11-13-2022 End: 11-13-2022 Patient encounter procedure 11/13/2022 1:00 PM EDT Office Visit [facility] General Surgery [address] [place] [phone] Mack Hill MD [address] [facility] [address] [place] [address] [facility] General Surgery Start: 11-09-2022 End: 11-09-2022 Patient encounter procedure 11/09/2022 1:00 PM EDT Appointment [facility] Non-Invasive Cardiology [address] [place] [phone] [facility] Non-Invasive Cardiology Start: 11-06-2022 End: 11-06-2022 Patient encounter procedure 11/06/2022 4:00 PM EDT Office Visit [facility] [address] [facility] [address] [place] [phone] Papito Hood MD [address] [place] [address] [facility] Start: 10-09-2022 End: 10-09-2022 Patient encounter procedure 10/09/2022 9:00 AM EDT Office Visit [facility] [address] [facility] [address] [place] [phone] Papito Hood MD [address] [place] [address] [facility] Start: 10-01-2022 End: 10-02-2023 Cobalamin (Vitamin B12) [Mass/volume] in Serum or Plasma Vitamin B12 Lab Routine Hyperglycemia Abnormal CBC Expected: 10/01/2022 (Approximate), Expires: 10/02/2023 [facility] Work Phone: Comment on above: Expected: 10/01/2022 (Approximate), Expi res: 10/02/2023 Start: 10-01-2022 End: 10-02-2023 Hemoglobin A1c/Hemoglobin.total in Blood Hemoglobin A1c Lab Routine Hyperglycemia Abnormal CBC Expected: 10/01/2022 (Approximate), Expires: 10/02/2023 [facility] Comment on above: Expected: 10/01/2022 (Approximate), Expi res: 10/02/2023 Start: 10-01-2022 End: 10-02-2023 Iron and Iron binding capacity panel - Serum or Plasma Iron level Lab Routine Hyperglycemia Abnormal CBC Expected: 10/01/2022 (Approximate), Expires: 10/02/2023 [facility] Comment on above: Expected: 10/01/2022 (Approximate), Expi res: 10/02/2023 Start: 09-25-2022 End: 09-26-2023 CBC W Auto Differential panel - Blood CBC auto differential Lab Routine Elevated liver enzymes Expected: 09/25/2022 (Approximate), Expires: 09/26/2023 [facility] [employer] Work Phone: Comment on above: Expected: 09/25/2022 (Approximate), Expi res: 09/26/2023 Start: 09-25-2022 End: 09-26-2023 Comprehensive metabolic 1998 panel - Serum or Plasma Comprehensive metabolic panel Lab Routine Elevated liver enzymes Expected: 09/25/2022 (Approximate), Expires: 09/26/2023 [facility] Comment on above: Expected: 09/25/2022 (Approximate), Expi res: 09/26/2023 Start: 09-25-2022 End: 09-26-2023 Hepatitis 1996 panel - Serum Hepatitis panel, acute Lab Routine Elevated liver enzymes Expected: 09/25/2022 (Approximate), Expires: 09/26/2023 [facility] Comment on above: Expected: 09/25/2022 (Approximate), Expi res: 09/26/2023 Start: 09-25-2022 End: 09-25-2022 Patient encounter procedure [facility] Family Medicine Start: 09-19-2022 End: 09-19-2022 Patient encounter procedure 09/19/2022 8:30 AM EDT Appointment [facility] [address] [place] [phone] [facility] Start: 08-01-2022 End: 08-02-2023 Comprehensive metabolic 1998 panel - Serum or Plasma Comprehensive metabolic panel Lab Routine SOB (shortness of breath) Expected: 08/01/2022 (Approximate), Expires: 08/02/2023 [facility] Comment on above: Expected: 08/01/2022 (Approximate), Expi res: 08/02/2023 Start: 08-01-2022 End: 08-01-2024 US Heart Transthoracic Transthoracic echocardiogram (TTE) complete with contrast, bubble, strain, and 3D PRN CV Echocardiography Routine Abnormal EKG Expected: 08/01/2022 (Approximate), Expires: 08/01/2024 [facility] Work Phone: Comment on above: Expected: 08/01/2022 (Approximate), Expi res: 08/01/2024 Start: 08-01-2022 End: 08-02-2023 XR Chest 2 Views XR chest 2 views Imaging Routine SOB (shortness of breath) Expected: 08/01/2022, Expires: 08/02/2023 [facility] Comment on above: Expected: 08/01/2022, Expires: Start: 08-01-2022 End: 08-01-2022 Patient encounter procedure 08/01/2022 Office Visit Family Medicine Lynda Rasheed MD [address] [place] [phone] [facility] Start: 07-23-2022 End: 07-23-2022 Esophagogastroduodenoscopy transoral diagnostic EGD DIAGNOSTIC Hematemesis, unspecified whether nausea present 07/23/2022 9:34 AM EDT [facility] G[facility] Start: 07-11-2022 End: 07-12-2023 Hemoglobin A1c/Hemoglobin.total in Blood Hemoglobin A1c Lab Routine Hyperglycemia Expected: 07/11/2022 (Approximate), Expires: 07/12/2023 [facility] Work Phone: Comment on above: Expected: 07/11/2022 (Approximate), Expi res: 07/12/2023 Start: 07-09-2022 End: 07-10-2023 XR Shoulder - right 2 Views XR shoulder 2+ views right Imaging Routine Low back pain, unspecified Pain in left shoulder Other chronic pain Pain in right shoulder Expected: 07/09/2022, Expires: 07/10/2023 [facility] Work Phone: Comment on above: Expected: 07/09/2022, Expires: Start: 06-12-2022 End: 06-13-2023 CBC W Auto Differential panel - Blood CBC auto differential Lab Routine Elevated liver enzymes Expected: 06/12/2022 (Approximate), Expires: 06/13/2023 [facility] Comment on above: Expected: 06/12/2022 (Approximate), Expi res: 06/13/2023 Start: 06-12-2022 End: 06-13-2023 Comprehensive metabolic 1998 panel - Serum or Plasma Comprehensive metabolic panel Lab Routine Elevated liver enzymes Expected: 06/12/2022 (Approximate), Expires: 06/13/2023 [facility] Comment on above: Expected: 06/12/2022 (Approximate), Expi res: 06/13/2023 Start: 06-12-2022 End: 06-13-2023 Lipid 1996 panel - Serum or Plasma Lipid panel Lab Routine Elevated liver enzymes Expected: 06/12/2022 (Approximate), Expires: 06/13/2023 [facility] Comment on above: Expected: 06/12/2022 (Approximate), Expi res: 06/13/2023 Start: 06-12-2022 End: 06-13-2023 PSA screening [facility] Comment on above: Expected: 06/12/2022 (Approximate), Expi res: 06/13/2023 Start: 06-12-2022 End: 06-13-2023 XR Lumbar spine 4 Views XR lumbar spine complete 4+ views Imaging Routine Lumbar back pain Expected: 06/12/2022, Expires: 06/13/2023 [facility] Comment on above: Expected: 06/12/2022, Expires: Start: 06-12-2022 End: 06-13-2023 XR Shoulder - left 2 Views XR shoulder 2+ views left Imaging Routine Chronic left shoulder pain Expected: 06/12/2022, Expires: 06/13/2023 [facility] Work Phone: Comment on above: Expected: 06/12/2022, Expires: 4 Start: 06-12-2022 End: 06-13-2023 XR Shoulder - right 2 Views XR shoulder 2+ views right Imaging Routine Chronic pain of both shoulders Expected: 06/12/2022, Expires: 06/13/2023 [facility] Comment on above: Expected: 06/12/2022, Expires: Start: 11-30-2021 Influenza vaccination [facility] Start: 09-01-2021 Lipid panel [facility] Start: 06-23-2021 End: 06-23-2021 Patient encounter procedure 06/23/2021 Office Visit Family Medicine Lynda Rasheed MD [address] [place] [phone] [facility] Start: 05-04-2021 COVID-19 Vaccine (4 - Booster for Pfizer series) COVID-19 Vaccine (4 - Booster for Pfizer series) [facility] Start: 05-04-2021 COVID-19 Vaccine (4 - Pfizer series) COVID-19 Vaccine (4 - Pfizer series) [facility] Start: 12-15-2020 End: 12-15-2020 Patient encounter procedure 12/15/2020 Appointment IP Unit Sotero Madsen MD [address] [place] [address] [address] [place], [place] [phone] [facility] Start: 11-30-2020 Influenza vaccination [facility] Work Phone: Start: 11-22-2020 End: 11-22-2020 Telemedicine consultation with patient 11/22/2020 Telemedicine Family Medicine Lynda Rasheed MD [address] [place] [phone] [facility] Start: 09-13-2020 End: 09-13-2020 Patient encounter procedure 09/13/2020 Office Visit General Surgery Stoero Madsen MD [address] [place] [address] [address] [place] [address] [phone] Gen Surg - [facility] Start: 12-01-2019 Influenza vaccination Flu vaccine (#1) [place], [place] Start: 06-15-2019 End: 06-15-2019 Office Visit 06/15/2019 Office Visit Family Medicine Lynda Rasheed MD [address] [place] [phone] [facility] Start: 01-24-2018 Pneumococcal 0-64 years Vaccine (2 - PCV) Pneumococcal 0-64 years Vaccine (2 - PCV) [facility] Start: 01-24-2018 Pneumococcal Vaccine: Pediatrics (0 to 5 Years) and At-Risk Patients (6 to 64 Years) (2 - PCV) Pneumococcal Vaccine: Pediatrics (0 to 5 Years) and At-Risk Patients (6 to 64 Years) (2 - PCV) [facility] Start: 11-14-2017 Colon cancer screen colonoscopy Colon cancer screen colonoscopy [place], [place] Start: 11-14-2017 Screening for malignant neoplasm of colon Colon cancer screen colonoscopy [place], [place] Start: 11-14-2017 Screening for malignant neoplasm of lung [facility] Start: 11-14-2017 Shingles Vaccine (1 of 2) Shingles Vaccine (1 of 2) [facility] Start: 11-14-2017 Zoster Vaccines (1 of 2) Zoster Vaccines (1 of 2) [facility] Start: 11-14-2012 Screening for malignant neoplasm of colon [facility] Start: 2007 Diabetes screen Diabetes screen [facility] Work Phone: Start: 11-14-2002 Diabetes screen Diabetes screen [facility] Start: 11-14-1986 DTaP/Tdap/Td vaccine (1 - Tdap) DTaP/Tdap/Td vaccine (1 - Tdap) [facility] Start: 11-14-1986 DTaP/Tdap/Td Vaccines (1 - Tdap) DTaP/Tdap/Td Vaccines (1 - Tdap) [facility] Start: 11-14-1986 Hepatitis A Vaccines (1 of 2 - Risk 2-dose series) Hepatitis A Vaccines (1 of 2 - Risk 2-dose series) [facility] Start: 11-14-1986 Hepatitis B Vaccines (1 of 3 - 19+ 3-dose series) Hepatitis B Vaccines (1 of 3 - 19+ 3-dose series) [facility] Start: 11-14-1985 Diabetes mellitus screening Diabetes Screening [facility] Start: 1983 COVID-19 Vaccine (1) COVID-19 Vaccine (1) [facility] Work Phone: Start: 1979 Depression Monitoring Depression Monitoring [facility] Start: 1979 Depresssion Monitoring Depresssion Monitoring [facility] Start: 11-14-1978 DTaP/Tdap/Td vaccine (1 - Tdap) DTaP/Tdap/Td vaccine (1 - Tdap) [place] Start: 11-14-1977 Diabetic foot examination Diabetes: Foot Exam [facility] Start: 11-14-1977 Glaucoma screening Diabetes: Retinopathy Screening [facility] Start: 11-14-1977 Preventive dental service Diabetes: Dental Exam [facility] Start: 11-14-1968 Hepatitis A Vaccines (1 of 2 - Risk 2-dose series) Hepatitis A Vaccines (1 of 2 - Risk 2-dose series) [facility] Start: 11-14-1968 MMR Vaccines (1 of 1 - Standard series) MMR Vaccines (1 of 1 - Standard series) [facility] Start: 1967 Hemoglobin A1c measurement Diabetes: Hemoglobin A1C [facility] Start: 1967 Hepatitis B Vaccines (1 of 3 - 3-dose series) Hepatitis B Vaccines (1 of 3 - 3-dose series) [facility] Start: 1967 HIV screening HIV Screening [facility] Start: 1967 Screening for malignant neoplasm of colon [facility] End: 06-10-2020 Anti-smooth muscle antibody Anti-smooth muscle antibody Lab Routine Tomorrow AM for 1 Occurrences starting 06/10/2020 until 06/10/2020 [facility] Work Phone: Comment on above: Tomorrow AM for 1 Occurrences starting 0 06/10/2020 until 06/10/2020 Anti-smooth muscle antibody Anti -smooth muscle antibody Lab Routine 06/10/2020 3:08 AM EST [facility] Work Phone: Basic Metabolic Pane l w/ Reflex to MG Basic Metabolic Panel w/ Reflex to MG Lab Routine Daily until discontinued starting 06/10/2020, 1 completed [facility] Work Phone: Comment on above: Daily until discontinued starting 2020, 1 completed End: 05-20-2023 Blood gases, venous measurement Blood gas, venous Lab STAT Once (Lab) for 1 Occurrences starting 05/20/2023 until 05/20/2023 [facility] Work Phone: Comment on above: Once (Lab) for 1 Occurrences starting until 05/20/2023 End: 06-10-2020 Blood glucose - POCT Blood glucose - POCT Point of Care Testing Routine One Time for 1 Occurrences starting 06/10/2020 until 06/10/2020 [facility] Work Phone: Comment on above: One Time for 1 Occurrences starting 05/30 until 06/10/2020 CBC auto differential CBC auto d ifferential Lab Routine Daily until discontinued starting 06/10/2020, 1 completed [facility] Work Phone: Comment on above: Daily until discontinued starting 2020, 1 completed CBC W Auto Different ial panel - Blood CBC with Auto Differential Lab Routine Daily until discontinued starting 09/29/2021, 1 completed [facility] Work Phone: Comment on above: Daily until discontinued starting 2021, 1 completed End: 06-10-2020 CERULOPLASMIN CERULOPLASMIN Lab Routine Tomorrow AM for 1 Occurrences starting 06/10/2020 until 06/10/2020 [facility] Work Phone: Comment on above: Tomorrow AM for 1 Occurrences starting 0 06/10/2020 until 06/10/2020 CERULOPLASMIN CERULOPLASMIN La b Routine 06/10/2020 3:08 AM EST [facility] Work Phone: Cologuard colon canc er screening Cologuard colon cancer screening Lab Routine Screening for colon cancer Ordered: 08/14/2024 [facility] Work Phone: Comment on above: Ordered: 08/14/2024 Complete PFT study Complete PFT study PFT Routine SOB (shortness of breath) Ordered: 08/01/2022 [facility] Comment on above: Ordered: 08/01/2022 Comprehensive metabo lic 2000 panel - Serum or Plasma Comprehensive Metabolic Panel Lab Routine Daily until discontinued starting 09/29/2021, 1 completed [facility] Work Phone: Comment on above: Daily until discontinued starting 2021, 1 completed End: 02-11-2024 CT Chest for screening WO contrast [facility] Work Phone: Comment on above: Once for 1 Occurrences starting 02/11/20 24 until 02/11/2024 End: 06-11-2024 CT Chest WO contrast [facility] Work Phone: Comment on above: Once for 1 Occurrences starting 06/12/19 25 until 06/11/2024 End: 10-10-2023 Drug screen panel, emergency Drug screen panel, emergency Lab Routine Alcohol withdrawal syndrome with complication (HCC) Encounter for monitoring naltrexone therapy Every 4 weeks for 6 Occurrences starting 10/09/2022 until 10/10/2023 [facility] Comment on above: Every 4 weeks for 6 Occurrences starting 10/09/2022 until 10/10/2023 End: 05-07-2024 Extra Tubes Extra Tubes Lab Routine Once (Lab) for 1 Occurrences starting 05/07/2024 until 05/07/2024 [facility] Work Phone: Comment on above: Once (Lab) for 1 Occurrences starting until 05/07/2024 Hemoglobin and Hematocrit Hemogl obin and Hematocrit Lab Routine 06/07/2021 2:21 AM EST [facility] Work Phone: End: 09-29-2021 Hemoglobin and Hematocrit Hemoglobin and Hematocrit Lab Timed Every 6 Hours (Lab) for 2 Days starting 09/27/2021 until 09/29/2021, 1 completed [facility] Work Phone: Comment on above: Every 6 Hours (Lab) for 2 Days starting 09/27/2021 until 09/29/2021, 1 completed Hemoglobin and Hematocrit Hemogl obin and Hematocrit Lab Timed 09/27/2021 1:42 AM EDT [facility] Work Phone: Hepatic function panel Hepatic f unction panel Lab Routine Daily until discontinued starting 06/10/2020, 1 completed [facility] Work Phone: Comment on above: Daily until discontinued starting 2020, 1 completed INR in Blood by Coag ulation assay [facility] End: 06-10-2020 Intermittent pulse oximetry Pulse Oximetry Spot Check Respiratory Care Routine One Time for 1 Occurrences starting 06/10/2020 until 06/10/2020 [facility] Work Phone: Comment on above: One Time for 1 Occurrences starting 05/30 until 06/10/2020 Magnesium measurement [facility] End: 06-10-2020 Nuclear Ab IF (S) [Titer] CHULA Lab Routine Tomorrow AM for 1 Occurrences starting 06/10/2020 until 06/10/2020 [facility] Work Phone: Comment on above: Tomorrow AM for 1 Occurrences starting 0 06/10/2020 until 06/10/2020 Nuclear Ab IF (S) [Titer] CHULA La b Routine 06/10/2020 3:08 AM EST [facility] Work Phone: OUTSIDE PROCEDURE SCAN OUTSIDE P ROCEDURE SCAN Procedures Ordered: 07/09/2022 [facility] [employer] Comment on above: Ordered: 07/09/2022 OUTSIDE PROCEDURE SCAN OUTSIDE P ROCEDURE SCAN Procedures Ordered: 09/29/2022 [facility] [employer] Comment on above: Ordered: 09/29/2022 OUTSIDE PROCEDURE SCAN OUTSIDE P ROCEDURE SCAN Procedures Ordered: 11/01/2022 [facility] [employer] Comment on above: Ordered: 11/01/2022 Oxygen therapy [Mini mum Data Set] Initiate Oxygen Therapy Protocol Respiratory Care Routine Daily until discontinued starting 06/09/2020 [facility] Work Phone: Comment on above: Daily until discontinued starting 2020 Oxygen therapy [Mini mum Data Set] Initiate Oxygen Therapy Protocol Respiratory Care Routine As Needed until discontinued starting 06/07/2021 [facility] Work Phone: Comment on above: As Needed until discontinued starting Oxygen therapy [Mini mum Data Set] Initiate Oxygen Therapy Protocol Respiratory Care Routine As Needed until discontinued starting 09/26/2021 [facility] Work Phone: Comment on above: As Needed until discontinued starting Oxygen therapy [Mini mum Data Set] Initiate Oxygen Therapy Protocol Respiratory Care Routine As Needed until discontinued starting 09/27/2021 [facility] Work Phone: Comment on above: As Needed until discontinued starting End: 05-07-2024 Pale Yellow Top Pale Yellow Top Lab Timed Once for 1 Occurrences starting 05/07/2024 until 05/07/2024 [facility] Comment on above: Once for 1 Occurrences starting 05/07/19 until 05/07/2024 Patient referral [facility] Work Phone: End: 05-07-2024 Red Top Red Top Lab Timed Once for 1 Occurrences starting 05/07/2024 until 05/07/2024 [facility] Comment on above: Once for 1 Occurrences starting 05/07/19 until 05/07/2024 End: 06-10-2020 Surgical Pathology Surgical Pathology Lab STAT Once for 1 Occurrences starting 06/10/2020 until 06/10/2020 [facility] Work Phone: Comment on above: Once for 1 Occurrences starting 06/11/19 until 06/10/2020 Surgical Pathology Surgical Path ology Lab STAT 06/10/2020 8:49 AM EST [facility] Work Phone: End: 05-08-2024 Transferrin.carbohydrate deficient/Transferrin.total in Serum or Plasma [facility] Work Phone: Comment on above: Once (Lab) for 1 Occurrences starting until 05/08/2024 End: 06-07-2021 VL Mesenteric Artery Duplex Scan VL Mesenteric Artery Duplex Scan Imaging Routine Once for 1 Occurrences starting 06/07/2021 until 06/07/2021 [facility] Work Phone: Comment on above: Once for 1 Occurrences starting 06/08/19 until 06/07/2021 End: 07-09-2022 XR Lumbar spine 4 Views [facility] Work Phone: Comment on above: Once for 1 Occurrences starting 07/10/19 until 07/09/2022 Immunizations Immunization Date Immunization Notes Care Provider Kar lala 09-25-2022 pneumococcal polysaccharide vaccine, 23 valent Lynda Rasheed MD Work Phone: [facility] 03-09-2021 Pfizer SARS-CoV-2 Vaccination Rosalina HOOKS Work Phone: [facility] 02-16-2021 influenza, injectabl e, quadrivalent, preservative free Joon Sheikh MD Work Phone: [facility] 02-16-2021 influenza virus vacc ine, unspecified formulation Rosalina HOOKS Work Phone: [facility] 07-22-2020 Pfizer SARS-CoV-2 Vaccination Rosalina HOOKS Work Phone: [facility] 06-30-2020 Pfizer SARS-CoV-2 Vaccination Rosalina HOOKS Work Phone: [facility] 01-12-2019 influenza, injectabl e, quadrivalent, contains preservative Lynda Rasheed [facility] 01-24-2017 Influenza, injectabl e, Madin Martina Canine Kidney, quadrivalent with preservative Lynda Kathya [place], [place] 01-24-2017 pneumococcal polysaccharide vaccine, 23 valent Lynda Rasheed [facility] Payers Date Payer Category Payer Self-pay 2022 Medicaid HMO [id number] 2018 Medicaid [id number] 2016 Unknown [facility] xxxxxxxxxxxx 2016-Present [phone] [place] [id number] [id number] 2016 Unknown [id number] Unknown [id number] Unknown [id number] Unknown [id number] Unknown [id number] Unknown [id number] Social History Date Type Detail Facility Start: 10-10-1985 End: 06-16-2024 Tobacco smoking status NHIS Current every day smoker [place], [place] Start: 01-12-2019 End: 08-04-2024 Cigarettes smoked [facility]pack per [facility] Start: 01-12-2019 End: 08-04-2024 Alcohol intake Current drinker of alcohol (finding) [place], [place] Start: 12-18-2016 Alcohol Comment at least 2 tallboys daily [place] Start: 1965 Sex Assigned At Not on file [place] Start: 08-31-2019 Alcohol Comment 6-24oz beers daily. Last drink 1 hour ago. [place] Exposure to SARS-CoV -2 (event) Unable to assess [place] Start: 10-02-2019 End: 06-16-2024 Tobacco use and exposure Never used [place], [place] Start: 10-01-2019 Alcohol Comment 24 oz 12% beer [place] Start: 09-17-2021 End: 11-01-2022 Exposure to SARS-CoV-2 (event) Not sure [place] Start: 10-10-1985 History of tobacco use Cigarette Smoker [facility] Phone: Start: 06-06-2021 History SDOH Alcohol Comment 25oz cans beer 6-8 per day [facility] Work Phone: Start: 09-27-2021 History SDOH Alcohol Comment 25oz cans beer 9-10 per day [facility] Work Phone: Start: 1965 Sex Assigned At Male [facility] Start: 06-02-2022 End: 06-12-2022 Exposure to SARS-CoV-2 (event) Yes [facility] Start: 07-22-2022 History SDOH Alcohol Frequency 5 [facility] Start: 07-22-2022 History SDOH IPV Fear 2 [facility] Start: 07-23-2022 Alcohol Comment beer 8 cans / day [facility] Start: 07-22-2022 End: 08-04-2024 Humiliation, Afraid, Rape, and Kick questionnaire [HARK] [facility] Within the last year , have you been afraid of your partner or ex-partner? No [facility] Are you now , , , , never or living with a partner? [facility] How often to you hav e a drink containing alcohol? 4 or more times a week [facility] How many standard dr inks containing alcohol do you have on a typical day? 7 to 9 [facility] How often do you hav e 6 or more drinks on 1 occasion? Daily or almost daily [facility] How hard is it for y ou to pay for the very basics like food, housing, medical care, and heating Not very hard [facility] Do you feel stress - tense, restless, nervous, or anxious, or unable to sleep at night because your mind is troubled all the time - these days [OSQ] Very much [facility] (I/We) worried wheth er (my/our) food would run out before (I/we) got money to buy more. Never true [facility] In the past 12 month s, has lack of transportation kept you from medical appointments or from getting medications? No [facility] Start: 06-12-2022 Gender identity Identifies as male gender (finding) [facility] Start: 06-12-2022 Sexual orientation Heterosexual (finding) [facility] Start: 09-25-2022 End: 08-10-2024 Alcohol intake Ex-drinker (finding) [facility] Start: 02-08-2023 Alcohol Comment 6-9 tall boy beers/day [facility] Start: 02-17-2023 Alcohol Comment Detox home for a week 0 drinks 02/17/23 [facility] How many standard dr inks containing alcohol do you have on a typical day? 5 or 6 [facility] Do you feel stress - tense, restless, nervous, or anxious, or unable to sleep at night because your mind is troubled all the time - these days [OSQ] To some extent [facility] How many standard dr inks containing alcohol do you have on a typical day? 10 or more [facility] Start: 11-28-2023 Alcohol Comment Detox home for a week 0 drinks 02/17/23, 6 tall boys/ daily 11/28/23 [facility] How hard is it for y ou to pay for the very basics like food, housing, medical care, and heating Somewhat hard [facility] Do you feel stress - tense, restless, nervous, or anxious, or unable to sleep at night because your mind is troubled all the time - these days [OSQ] Not at all [facility] Start: 10-30-2021 Sex Male (finding) [facility] How often to you hav e a drink containing alcohol? Never [facility] History of tobacco use Passive smoker [facility] Start: 05-09-2024 Tobacco Comment Started at 19, 2 PPD, 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 05/09/2024 [facility] History of tobacco use Cigar Smoker [facility] How often to you hav e a drink containing alcohol? 2-4 times a month [facility] How many standard dr inks containing alcohol do you have on a typical day? 1 or 2 [facility] Start: 07-17-2017 Alcohol Alcohol [facility] Start: 07-17-2017 Drugs Drugs [facility] Start: 03-07-2017 Lives Lives [facility] Start: 07-20-2017 Tobacco Use Tobacco Use [facility] Goals Date Patient Goal Desired Activity /State Personal health goal Comment on above: Formatting of this n ote might be different from the original. Go to school, eat healthier, support my family better and remain sober. Functional Status Date Assessment Result Facility 09-20-2024 Functional status Activity Ability Indepe ndent [facility] Work Phone: 09-19-2024 Functional status Ambulates;Bathroom Priv ilege [facility] Work Phone: Mental Status Date Assessment Result Facility 09-20-2024 Cognitive function Voice/Name [facility] Work Phone: Clinical Notes 06-09-2021 to 09-20-2024 Note Date & Type Note Facility 09-20-2024 Discharge summary [facility] 09-20-2024 Note [facility] Medical Records Department [address] [place] [address] Discharge Summary 09/20/24 1017 MR#: [id number] Acct: [id number] Name: MARIA DE JESUS HOGAN Rep #: [id number] : 1965 58 From: Bryan Cox DO PCP: OUT OF TOWN DOCTOR Status:ADM IN Location: [facility] [id number] Providers Date of Admission: 09/17/24 Primary Care Physician: Out of Town Doctor Reason For Visit: ACUTE ETOH INTOXICATION WITH CHRONIC ETOH ABUSE Diagnosis Discharge Diagnosis (1) Alcohol withdrawal: Status: Acute Code(s): F10.239 - Alcohol dependence with withdrawal, unspecified Plan: Thus far uncomplicated. Continue with phenobarbital taper. Continue with thiamine and folate. Patient to follow-up with pedro Hoty for IOP. Medications at Discharge Home Medications cyclobenzaprine 10 mg tablet 10 mg PO QHS muscle spasm 09/17/24 gabapentin 300 mg capsule 600 mg PO TID 09/17/24 melatonin 5 mg tablet 5 mg PO QHS 09/17/24 omeprazole 20 mg tablet,delayed release 20 mg PO DAILY 09/17/24 multivitamin (Daily Multi-Vitamin tablet) 1 tab PO DAILY #30 tabs 09/20/24 Hospital Course Operations None Procedures None Summary of Care Provided Hospital Course: Patient admitted for acute alcohol withdrawal treatment. His treatment was uncomplicated and patient was on phenobarbital taper. Patient will be discharged home. Patient plans to follow-up with pedro Hoyt IOP. Weight / BMI Weight Weight: 98.5 kg Body Mass Index (BMI) 30.2 ABG / Lab / Microbiology Data 09/18/24 05:56 09/18/24 05:56 D/C Instructions Discharge Diet: No restrictions DC O2, CPAP, BIPAP Needs Home O2 Discharge instructions: No Meaningful Use Info Meaningful Use Meaningful Use Diagnoses (Choose all that apply): None applicable Ischemic Stroke Statin Dosing Therapy Reference: STATIN DOSE THERAPY REFERENCE: * Patients > 75 years receive moderate or high dose statin therapy. * Patients 75 years or YOUNGER should receive HIGH intensity statin dose unless contraindicated. You will be required to document reason for non-treatment if statin daily dose does not meet guidelines. HIGH DOSE STATIN THERAPY DAILY Atorvastatin > than or = to 40 mg Rosuvastatin > than or = to 20 mg Amlodipine + Atorvastatin > than or = to 2.5/40 mg Ezetimibe + Simvastatin 10/80 mg Simvastatin 80mg Discharge Plan Admission Admit Date/Time: 09/17/24 20:05 Primary Reason for Your Visit: alcohol withdrawal. Attending Provider: Bryan Cox Primary Care Provider: [facility] ,Out of Consulting Providers: Joon Vinson Discharge Orders/Prescriptions Prescriptions: New multivitamin [Daily Multi-Vitamin] Tablet 1 tab PO DAILY Qty: 30 0RF Rx Instructions: [id number]. No prescription required. Continued cyclobenzaprine 10 mg tablet 10 mg PO QHS gabapentin 300 mg capsule 600 mg PO TID melatonin 5 mg tablet 5 mg PO QHS omeprazole 20 mg tablet,delayed release (DR/EC) 20 mg PO DAILY Referrals / Follow Up: [facility] ,Out of [Primary Care Provider] - Disposition Disposition (needs filled in before D/C Order can be placed): Home, Self Care Charges/Coding Visit Charges Inpatient E M: 17830 Disch Hosp 09/20/24 1021 Cosigner Signature (if applicable): CC: Dr. Bryan Cox DO Signed [facility] 09-19-2024 Progress note Note Date/Time September 19, 2024 10:52am [facility] Medical Records Department [address] [place] [address] Progress Note - Hospitalist 09/19/24 1050 MR#: [id number] Acct: [id number] Name: MARIA DE JESUS HOGAN Rep #:[id number] : 1965 58 From: Bryan Cox DO PCP: OUT OF TOWN DOCTOR Status:ADM IN Location: MS3 [id number] Reason for Visit Reason for Visit: Diagnoses Obesity, class 1 (09/17/24) Alcohol abuse, uncomplicated (09/17/24) Alcohol dependence with withdrawal, unspecified (09/17/24) Alcohol use, unspecified with intoxication, uncomplicated (09/17/24) Nicotine dependence, unspecified, uncomplicated (09/17/24) Chronic obstructive pulmonary disease, unspecified (09/17/24) Alcoholic hepatitis without ascites (09/17/24) Subjective Subjective Feeling ok. Still with tremulousness. Feels he needs to stay another day. Objective Data Objective Data Vital Signs: Vital Signs Temp Pulse Resp BP Pulse Ox O2 Del Method O2 Flow Rate 36.9 C 104 H 16 142/103 H 97 Room Air 2 09/19/24 09:15 09/19/24 09:15 09/19/24 09:31 09/19/24 09:15 09/19/24 09:15 09/19/24 09:31 09/19/24 04:39 Oxygen Flow Rate (L/min) 2 Oxygen Delivery Method Room Air Weight: 98.5 kg Body Mass Index (BMI) 30.2 Intake & Output: Intake and Output for Last 24 Hours 09/17/24 09/18/24 09/19/24 23:59 23:59 23:59 Intake Total 300 / 300 3228.34 / 3228.34 Balance 300 / 300 3228.34 / 3228.34 Lab / Micro Data 09/18/24 05:56 09/18/24 05:56 Labs: Laboratory Results - last 24 hr 09/19/24 06:28: Phosphorus 3.9 Physical Exam Const alert and no apparent distress HEENT head/scalp atraumatic and moist oral mucous membranes Resp normal respiratory effort and no retractions Extremity normal to inspection and full ROM Neuro Sensorium / Orientation: awake and alert Psych affect normal Assessment & Plan Assessment/Plan (1) Alcohol withdrawal: PLAN: Thus far uncomplicated. Continue with phenobarbital taper. Continue withthiamine and folate. Patient to follow-up with pedro Hoyt for IOP. Anticipated length of stay is 1 more day. Charges/Coding Visit Charges Inpatient E&M: 93947 Subs Hosp L1 09/19/24 105 <Electronically signed by Bryan Cox DO> Cosigner Signature (if applicable): CC: ~ Signed [facility] Work Phone: 1(594) 489-630506-21-2025 Progress note [facility] Medical Records Department [address] [place] [address] Progress Note - Hospitalist 09/19/24 1050 MR#: [id number] Acct: [id number] Name: MARIA DE JESUS HOGAN Rep #:[id number] : 1965 58 From: Bryan Cox DO PCP: OUT OF TOWN DOCTOR Status:ADM IN Location: [facility] [id number] Reason for Visit Reason for Visit: Diagnoses Obesity, class 1 (09/17/24) Alcohol abuse, uncomplicated (09/17/24) Alcohol dependence with withdrawal, unspecified (09/17/24) Alcohol use, unspecified with intoxication, uncomplicated (09/17/24) Nicotine dependence, unspecified, uncomplicated (09/17/24) Chronic obstructive pulmonary disease, unspecified (09/17/24) Alcoholic hepatitis without ascites (09/17/24) Subjective Subjective Feeling ok. Still with tremulousness. Feels he needs to stay another day. Objective Data Objective Data Vital Signs: Vital Signs Temp Pulse Resp BP Pulse Ox O2 Del Method O2 Flow Rate 36.9 C 104 H 16 142/103 H 97 Room Air 2 09/19/24 09:15 09/19/24 09:15 09/19/24 09:31 09/19/24 09:15 09/19/24 09:15 09/19/24 09:31 09/19/24 04:39 Oxygen Flow Rate (L/min) 2 Oxygen Delivery Method Room Air Weight: 98.5 kg Body Mass Index (BMI) 30.2 Intake & Output: Intake and Output for Last 24 Hours 09/17/24 09/18/24 09/19/24 23:59 23:59 23:59 Intake Total 300 / 300 3228.34 / 3228.34 Balance 300 / 300 3228.34 / 3228.34 Lab / Micro Data 09/18/24 05:56 09/18/24 05:56 Labs: Laboratory Results - last 24 hr 09/19/24 06:28: Phosphorus 3.9 Physical Exam Const alert and no apparent distress HEENT head/scalp atraumatic and moist oral mucous membranes Resp normal respiratory effort and no retractions Extremity normal to inspection and full ROM Neuro Sensorium / Orientation: awake and alert Psych affect normal Assessment & Plan Assessment/Plan (1) Alcohol withdrawal: PLAN: Thus far uncomplicated. Continue with phenobarbital taper. Continue withthiamine and folate. Patient to follow-up with pedro Hoyt for IOP. Anticipated length of stay is 1 more day. Charges/Coding Visit Charges Inpatient E&M: 23773 Subs Hosp L1 09/19/24 1052 Cosigner Signature (if applicable): CC: ~ Signed [facility]06-20-2025 Progress note Author Bryan Cox [facility] Note Date/Time September 18, 2024 1:10 pm [facility] Medical Records Department [address] [place] [address] Progress Note - Hospitalist 09/18/24 1307 MR#: [id number] Acct: [id number] Name: MARIA DE JESUS HOGAN Rep #:[id number] : 1965 58 From: Bryan Cox DO PCP: OUT OF TOWN DOCTOR Status:ADM IN Location: [facility] [id number] Reason for Visit Reason for Visit: Diagnoses Obesity, class 1 (09/17/24) Alcohol abuse, uncomplicated (09/17/24) Alcohol use, unspecified with intoxication, uncomplicated (09/17/24) Nicotine dependence, unspecified, uncomplicated (09/17/24) Chronic obstructive pulmonary disease, unspecified (09/17/24) Alcoholic hepatitis without ascites (09/17/24) Subjective Subjective Feeling well. Has some tremors in his upper extremities. States that he normally detoxes quickly today as a follow-up appointment with IOP with pedro Hoyt. Objective Data Objective Data Vital Signs: Vital Signs Temp Pulse Resp BP Pulse Ox O2 Del Method O2 Flow Rate 36.4 C L 103 H 20 H 155/104 H 88 Room Air 2 09/18/24 08:40 09/18/24 08:40 09/18/24 08:40 09/18/24 08:40 09/18/24 08:50 09/18/24 08:50 09/18/24 04:44 Oxygen Flow Rate (L/min) 2 Oxygen Delivery Method Room Air Weight: 98.5 kg Body Mass Index (BMI) 30.2 Intake & Output: Intake and Output for Last 24 Hours 09/16/24 09/17/24 09/18/24 23:59 23:59 23:59 Intake Total 300 / 300 2578.34 / 2578.34 Balance 300 / 300 2578.34 / 2578.34 Lab / Micro Data 09/18/24 05:56 09/18/24 05:56 Labs: Laboratory Results - last 24 hr 09/17/24 18:49: WBC 7.1, RBC 5.11, Hgb 17.1 H, Hct 49.4, MCV 96.7 H, MCH 33.5 H,MCHC 34.6, RDW Std Deviation 48.2 H, RDW Coeff of Shelby 13.4, Plt Count 281, MPV 8.2, Immature Gran % (Auto) 0.300, Neut % (Auto) 53.0, Lymph % (Auto) 31.7, [place]% (Auto) 11.8 H, Eos % (Auto) 2.5, Baso % (Auto) 0.7, Absolute Neuts (auto) 3.8,Absolute Lymphs (auto) 2.26, Nucleated RBC % 0, Sodium 131 L, Potassium 4.5, Chloride 94 L, Carbon Dioxide 22.2, Anion Gap 14, BUN 4, Creatinine 0.60 L, EstimCreat Clear Calc 165.82, Est GFR (MDRD) Non-Af 113, BUN/Creatinine Ratio 6.5 L, Glucose 176 H, Calcium 8.7, Magnesium 2.1, Total Bilirubin 0.33, AST 63 H, ALT 64 H, Alkaline Phosphatase 116, Total Protein 7.4, Albumin 4.1, Globulin 3.3, Albumin/Globulin Ratio 1.3, Urine Opiates Screen NEGATIVE, U Buprenorphine Qual NEGATIVE, Ur Oxycodone Screen NEGATIVE, Urine Methadone Screen NEGATIVE, Urine Fentanyl Screen NEGATIVE, Ur Barbiturates Screen NEGATIVE, Ur Phencyclidine ScrnNEGATIVE, Ur Amphetamines Screen NEGATIVE, U Benzodiazepines Scrn NEGATIVE, Urine Cocaine Screen NEGATIVE, U Cannabinoids Screen NEGATIVE, Ethyl Alcohol 368.0 H* 09/17/24 20:29: PT 12.8, INR 0.9 09/18/24 05:56: WBC 4.3 L, RBC 4.78, Hgb 16.2, Hct 47.3, MCV 99.0 H, MCH 33.9 H,MCHC 34.2, RDW Std Deviation 49.9 H, RDW Coeff of Shelby 13.6, Plt Count 266, MPV 8.2, Immature Gran % (Auto) 0.200, Neut % (Auto) 51.0, Lymph % (Auto) 28.3, [place]% (Auto) 14.1 H, Eos % (Auto) 5.2 H, Baso % (Auto) 1.2 H, Absolute Neuts (auto) 2.2, Absolute Lymphs (auto) 1.21, Nucleated RBC % 0, Sodium 138, Potassium 4.5, Chloride 99, Carbon Dioxide 28.4, Anion Gap 10, BUN 4, Creatinine 0.63 L, Estim Creat Clear Calc 156.63, Est GFR (MDRD) Non-Af 112, BUN/Creatinine Ratio 5.9 L, Glucose 91, Calcium 8.2, Phosphorus 4.6 H, Total Bilirubin 0.29, AST 50 H, ALT 54 H, Alkaline Phosphatase 103, Total Protein 6.7, Albumin 3.8, Globulin 2.9, Albumin/Globulin Ratio 1.3, TSH 2.810, Ethyl Alcohol 119.0 H Physical Exam Const alert and no apparent distress Constitutional Narrative: Up ambulating the room with normal gait. Slight tremulousness of the upper extremities bilaterally. Alert and oriented. Nontoxic. HEENT head/scalp atraumatic Resp normal respiratory effort and no retractions Cardio regular rate and regular rhythm Assessment & Plan Assessment/Plan (1) Alcohol withdrawal: PLAN: Thus far uncomplicated. Continue with phenobarbital taper. Continue withthiamine and folate. Patient to follow-up with pedro Hoyt for IOP. Anticipated length of stay is 1-2 more days. Charges/Coding Visit Charges Inpatient E&M: 10211 Subs Hosp L1 09/18/24 1310 <Electronically signed by Bryan Cox DO> Cosigner Signature (if applicable): CC: ~ Signed [facility] Work Phone: 1(109) 845-621106-20-2025 Progress note [facility] Medical Records Department [address] [place] [address] Progress Note - Hospitalist 09/18/24 1307 MR#: [id number] Acct: [id number] Name: MARIA DE JESUS HOGAN Rep #:[id number] : 1965 58 From: Bryan Cox DO PCP: OUT OF TOWN DOCTOR Status:ADM IN Location: [facility] [id number] Reason for Visit Reason for Visit: Diagnoses Obesity, class 1 (09/17/24) Alcohol abuse, uncomplicated (09/17/24) Alcohol use, unspecified with intoxication, uncomplicated (09/17/24) Nicotine dependence, unspecified, uncomplicated (09/17/24) Chronic obstructive pulmonary disease, unspecified (09/17/24) Alcoholic hepatitis without ascites (09/17/24) Subjective Subjective Feeling well. Has some tremors in his upper extremities. States that he normally detoxes quickly today as a follow-up appointment with [facility] with pedro Hoyt. Objective Data Objective Data Vital Signs: Vital Signs Temp Pulse Resp BP Pulse Ox O2 Del Method O2 Flow Rate 36.4 C L 103 H 20 H 155/104 H 88 Room Air 2 09/18/24 08:40 09/18/24 08:40 09/18/24 08:40 09/18/24 08:40 09/18/24 08:50 09/18/24 08:50 09/18/24 04:44 Oxygen Flow Rate (L/min) 2 Oxygen Delivery Method Room Air Weight: 98.5 kg Body Mass Index (BMI) 30.2 Intake & Output: Intake and Output for Last 24 Hours 09/16/24 09/17/24 09/18/24 23:59 23:59 23:59 Intake Total 300 / 300 2578.34 / 2578.34 Balance 300 / 300 2578.34 / 2578.34 Lab / Micro Data 09/18/24 05:56 09/18/24 05:56 Labs: Laboratory Results - last 24 hr 09/17/24 18:49: WBC 7.1, RBC 5.11, Hgb 17.1 H, Hct 49.4, MCV 96.7 H, MCH 33.5 H,MCHC 34.6, RDW Std Deviation 48.2 H, RDW Coeff of Shelby 13.4, Plt Count 281, MPV 8.2, Immature Gran % (Auto) 0.300, Neut % (Auto) 53.0, Lymph % (Auto) 31.7, [place]% (Auto) 11.8 H, Eos % (Auto) 2.5, Baso % (Auto) 0.7, Absolute Neuts (auto) 3.8,Absolute Lymphs (auto) 2.26, Nucleated RBC % 0, Sodium 131 L, Potassium 4.5, Chloride 94 L, Carbon Dioxide 22.2, Anion Gap 14, BUN 4, Creatinine 0.60 L, EstimCreat Clear Calc 165.82, Est GFR (MDRD) Non-Af 113, BUN/Creatinine Ratio 6.5 L, Glucose 176 H, Calcium 8.7, Magnesium 2.1,Total Bilirubin 0.33, AST 63 H, ALT 64 H, Alkaline Phosphatase 116, Total Protein 7.4, Albumin 4.1,Globulin 3.3, Albumin/Globulin Ratio 1.3, Urine Opiates Screen NEGATIVE, U Buprenorphine Qual NEGATIVE, Ur Oxycodone Screen NEGATIVE, Urine Methadone Screen NEGATIVE, Urine Fentanyl Screen NEGATIVE, Ur Barbiturates Screen NEGATIVE, Ur Phencyclidine ScrnNEGATIVE, Ur Amphetamines Screen NEGATIVE, U Benzodiazepines Scrn NEGATIVE, Urine Cocaine Screen NEGATIVE, U Cannabinoids Screen NEGATIVE, Ethyl Alcohol 368.0 H* 09/17/24 20:29: PT 12.8, INR 0.9 09/18/24 05:56: WBC 4.3 L, RBC 4.78, Hgb 16.2, Hct 47.3, MCV 99.0 H, MCH 33.9 H,MCHC 34.2, RDW Std Deviation 49.9 H, RDW Coeff of Shelby 13.6, Plt Count 266, MPV 8.2, Immature Gran % (Auto) 0.200, Neut % (Auto) 51.0, Lymph % (Auto) 28.3, [place]% (Auto) 14.1 H, Eos % (Auto) 5.2 H, Baso % (Auto) 1.2 H, Absolute Neuts (auto) 2.2, Absolute Lymphs (auto) 1.21, Nucleated RBC % 0, Sodium 138, Potassium 4.5, Chloride 99, Carbon Dioxide 28.4, Anion Gap 10, BUN 4, Creatinine 0.63 L, Estim Creat Clear Calc 156.63, Est GFR (MDRD) Non-Af 112, BUN/Creatinine Ratio 5.9 L, Glucose 91, Calcium 8.2, Phosphorus 4.6 H, Total Bilirubin 0.29, AST 50 H, ALT 54 H, Alkaline Phosphatase 103, Total Protein 6.7, Albumin 3.8, Globulin 2.9, Albumin/Globulin Ratio 1.3, TSH 2.810, Ethyl Alcohol 119.0 H Physical Exam Const alert and no apparent distress Constitutional Narrative: Up ambulating the room with normal gait. Slight tremulousness of the upper extremities bilaterally.Alert and oriented. Nontoxic. HEENT head/scalp atraumatic Resp normal respiratory effort and no retractions Cardio regular rate and regular rhythm Assessment & Plan Assessment/Plan (1) Alcohol withdrawal: PLAN: Thus far uncomplicated. Continue with phenobarbital taper. Continue withthiamine and folate. Patient to follow-up with pedro Hoty for IOP. Anticipated length of stay is 1-2 more days. Charges/Coding Visit Charges Inpatient E&M: 24544 Subs Hosp L1 09/18/24 1310 Cosigner Signature (if applicable): CC: ~ Signed [facility]06-20-2025 History and physical note Author Joon Quintero [facility] Note Date/Time September 18, 2024 7:07 am [facility] Medical Records Department [address] [place], [place] [address] H&P Exam - Hospitalist 09/17/241944 MR#: [id number] Acct: [id number] Name: MARIA DE JESUS HOGAN Rep #:[id number] : 1965 58 From: Joon Morse DO PCP: OUT OF TOWN DOCTOR Status:ADM IN Location: [facility] [id number] HPI - General General Date of Admission: 09/17/24 Date of Service: 09/17/24 Chief Complaint: Requesting EtOH Detox. HPI Narrative MARIA DE JESUS HOGAN, is a 58 M with a past medical history of EtOH abuse; with patient admitting to drinking ~6-9 tall boy beers daily with his last drink ~20 minutes prior to arrival, history of EtOH hepatitis, tobacco abuse; with subsequent COPD, obesity; with BMI of 30.8 this admission, BPH, GERD; on omeprazole OA; with chronic back pain plus neuropathy on gabapentin 3 times daily and as needed cyclobenzaprine and history of admission here from June to July 20, 2017 for inpatient treatment of acute alcohol withdrawal and mild alcoholic hepatitis who presents to [facility] once again requesting alcohol detoxification. Mr. Hogan reports he recently went for alcohol detox at an outside facility in May of this year with sobriety lasting ~1 month before relapsing into severe alcohol abuse. He denies history of alcohol withdrawal seizures and his informed the ER physician that he had been prescribed B vitamins and an antacid but he does not take them as prescribed. There is no report of other illicit drug use. He additionally denies associated fever, chills, nausea, vomiting, diarrhea, constipation, chest pain, palpitations, heart racing, shortness of breath, headache or rash. In the ER he was noted to have an elevated DIEGO of 368 mg/dL present on admission consistent with Acute EtOH Intoxication in the setting of Chronic EtOH Abuse and he was then admitted to the general medical floor for ongoing care for stay that is expected to extend beyond 2 midnights. [facility] Medical History EtOH dependence Home Medications ?Medication ?Instructions ?Recorded ?Last Taken ?Type cyclobenzaprine 10 mg tablet 10 mg PO QHS PRN PRN musc le spasm 09/17/24 Unknown History gabapentin 300 mg capsule 600 mg PO TID 09/17/2409/17 History melatonin 5 mg tablet 5 mg PO QHS 09/17/24 5 History omeprazole 20 mg tablet,delayed 20 mg PO DAILY 5 09/16/24 History release Allergy/AdvReac Type Severity Reaction Status Date / Time bee pollen Allergy Anaphylaxis Verified 09/17/24 18:30 nickel AdvReac Rash Verified 09/17/24 18:30 tramadol AdvReac Nausea Verified 09/17/24 18:30 Social History Smoking Status: Current every day smoker tobacco type: cigarettes ROS ROS Narrative Review of Systems: Constitutional: Patient denies fever or chills. Eyes: Patient denies changes in vision or discharge from eyes. ENT: Patient denies runny nose, sore throat or ear pain. Resp: Patient denies shortness of breath or cough. CV: Patient denies chest pain, palpitations, heart racing or lower extremity edema. GI: Patient denies abdominal pain, nausea, vomiting, diarrhea or constipation. : Patient denies dysuria or hematuria. MSK: Patient admits to chronic back pain with neuropathy as per HPI. Skin: Patient denies rash, abscess, wounds or jaundice. Psych: Patient denies symptoms of uncontrolled depression or anxiety. Neuro: Patient denies headache, paresthesias or focal neurologic deficits. Allergy: Patient denies lip swelling, tongue swelling or urticaria. Hematology: Patient denies easy bleeding or easy bruisability. Endocrinology: Patient denies polyuria, polydipsia, polyphagia or heat/cold intolerance. 14 point ROS otherwise negative save for positives noted above in HPI. Vital Signs Vital Signs Vital Signs: 09/17/24 18:30 Temperature 98.3 F Temperature Source Oral Pulse Rate 103 H Respiratory Rate 18 Blood Pressure 121/80 H Blood Pressure Mean 93 Pulse Ox 95 Oxygen Delivery Method Room Air Weight Weight: 221 lb Body Mass Index (BMI) 30.8 Physical Exam Const alert, oriented x3 and no apparent distress Constitutional Narrative: Patient appears intoxicated. General Appearance: cooperative HEENT normocephalic, head/scalp atraumatic, hearing grossly normal bilaterally and moist oral mucous membranes Eyes PERRL and EOMs intact bilaterally Neck no lymphadenopathy and supple Resp normal respiratory effort, no retractions, no use of accessory muscles and clearto auscultation bilaterally Cardio regular rate and regular rhythm GI normal to inspection, nondistended, normoactive bowel sounds, soft to palpation,non-tender and non-distended GI Narrative: Obese. Extremity normal to inspection, full ROM and no clubbing, cyanosis or edema Skin Skin Narrative: Patient has no evidence of rash, abscess, wounds or jaundice. Neuro oriented x3, CN's II-XII intact bilaterally, moves all extremities and no focal motor deficits Neuro Narrative: Patient appears intoxicated. Sensorium / Orientation: awake, alert, oriented to person, oriented to place andoriented to time Speech: speech normal Psych affect normal Results Medical Records Data Attestation: I reviewed the patient's medical records Lab / Micro Data Attestation: I reviewed the patient's lab results. 09/17/24 18:49 09/17/24 18:49 Labs: Laboratory Results - last 24 hr 09/17/24 18:49: WBC 7.1, RBC 5.11, Hgb 17.1 H, Hct 49.4, MCV 96.7 H, MCH 33.5 H,MCHC 34.6, RDW Std Deviation 48.2 H, RDW Coeff of [place] 13.4, Plt Count 281, MPV 8.2, Immature Gran % (Auto) 0.300, Neut % (Auto) 53.0, Lymph % (Auto) 31.7, [place]% (Auto) 11.8 H, Eos % (Auto) 2.5, Baso % (Auto) 0.7, Absolute Neuts (auto) 3.8,Absolute Lymphs (auto) 2.26, Nucleated RBC % 0, Sodium 131 L, Potassium 4.5, Chloride 94 L, Carbon Dioxide 22.2, Anion Gap 14, BUN 4, Creatinine 0.60 L, EstimCreat Clear Calc 165.82, Est GFR (MDRD) Non-Af 113, BUN/Creatinine Ratio 6.5 L, Glucose 176 H, Calcium 8.7, Total Bilirubin 0.33, AST 63 H, ALT 64 H, Alkaline Phosphatase 116, Total Protein 7.4, Albumin 4.1, Globulin 3.3, Albumin/Globulin Ratio 1.3, Urine Opiates Screen NEGATIVE, U Buprenorphine Qual NEGATIVE, Ur Oxycodone Screen NEGATIVE, Urine Methadone Screen NEGATIVE, Urine Fentanyl Screen NEGATIVE, Ur Barbiturates Screen NEGATIVE, Ur Phencyclidine Scrn NEGATIVE, Ur Amphetamines Screen NEGATIVE, U Benzodiazepines Scrn NEGATIVE, Urine Cocaine Screen NEGATIVE, U Cannabinoids Screen NEGATIVE, Ethyl Alcohol 368.0 H* Assessment & Plan Assessment/Plan (1) Acute alcohol intoxication: QUALIFIERS: Complication of substance-induced condition: uncomplicated Qualified Code(s): F10.920 - Alcohol use, unspecified with intoxication, uncomplicated (2) Alcohol abuse: (3) Alcoholic hepatitis: QUALIFIERS: Ascites presence: without ascites Qualified Code(s): K70.10 - Alcoholic hepatitis without ascites (4) Desire for detoxification: (5) Tobacco dependence: (6) COPD (chronic obstructive pulmonary disease): QUALIFIERS: COPD type: unspecified COPD Qualified Code(s): J44.9 - Chronic obstructive pulmonary disease, unspecified (7) Obesity (BMI 30.0-34.9): PLAN: Plan 1. Elevated DIEGO of 368 mg/dL present on admission consistent with Acute EtOH Intoxication in the setting of Chronic EtOH Abuse with the patient requesting EtOH detox - Admit to general medical floor under alcohol withdrawal protocol primarily consisting of phenobarbital taper. EtOH cessation will be strongly encouraged. Give ibuprofen as needed pain or fever. Give ondansetron as neededfor nausea and vomiting. 2. History of admission here from July 17, 2017 to July 20, 2017 for inpatient treatment of acute alcohol withdrawal and mild alcoholic hepatitis complicating #1 - Noted developing pattern of serial readmission. 3. History of EtOH hepatitis compounding #1 & #2 - Noted with AST of 63U/L and ALT of 64U/L with alkaline phosphatase of 116 mg/dL present on admission. 4. Tobacco abuse; with subsequent COPD adding to the medical complexity of #1 - #3 - Stable with no signs of acute flare at this time. Continue as needed nebulizers. Tobacco Cessation will be strongly encouraged with nicotine patch offered to control cravings. 5. Obesity; with BMI of 30.8 this admission adding to the burden of disease outlined from #1 - #4 - Weight loss will be recommended. Check TSH. This complicates case may have recovery. 6. BPH - Stable. 7. GERD; on omeprazole - Maintain PPI. 8. OA; with chronic back pain plus neuropathy on gabapentin 3 times daily and as needed cyclobenzaprine - Current therapy to continue in addition to as neededibuprofen as outlined in #1. 9. DVT prophylaxis - Enoxaparin 40 mg sq daily. Total time: Approximately (but not less than) 75 minutes. Charges/Coding Visit Charges Inpatient E&M: 74450 Init Hosp L3 09/18/24 0707 <Electronically signed by Joon Vinson DO> Cosigner Signature (if applicable): CC: Dr. Joon Vinson, DO~ Signed [facility] Work Phone: [phone] History and physical note [facility] Medical Records Department [address] [place] [address] H&P Exam - Hospitalist 09/17/241944 MR#: [id number] Acct: [id number] Name: MARIA DE JESUS HOGAN Rep #:[id number] : 1965 58 From: Joon Morse DO PCP: OUT OF TOWN DOCTOR Status:ADM IN Location: [facility] [id number] HPI - General General Date of Admission: 09/17/24 Date of Service: 09/17/24 Chief Complaint: Requesting EtOH Detox. HPI Narrative MARIA DE JESUS HOGAN, is a 58 M with a past medical history of EtOH abuse; with patient admitting to drinking ~6-9 tall boy beers daily with his last drink ~20 minutes prior to arrival, history of EtOHhepatitis, tobacco abuse; with subsequent COPD, obesity; with BMI of 30.8 this admission, BPH, GERD; on omeprazole OA; with chronic back pain plus neuropathy on gabapentin 3 times daily and as neededcyclobenzaprine and history of admission here from June to July 20, 2017 for inpatient treatment of acute alcohol withdrawal and mild alcoholic hepatitis who presents to [facility] once again requesting alcohol detoxification. Mr. Hogan reports he recently went for alcohol detox at an outside facility in May of this year with sobriety lasting ~1 month before relapsing into severe alcohol abuse. He denies historyof alcohol withdrawal seizures and his informed the ER physician that he had been prescribed B vitamins and an antacid but he does not take them as prescribed. There is no report of other illicit drug use. He additionally denies associated fever, chills, nausea, vomiting, diarrhea, constipation, chest pain, palpitations, heart racing, shortness of breath, headache or rash. In the ER he was noted to have an elevated DIEGO of 368 mg/dL present on admission consistent with Acute EtOH Intoxication in the setting of Chronic EtOH Abuse and he was then admitted to the general medical floor for ongoing care for stay that is expected to extend beyond 2 midnights. [facility] Medical History EtOH dependence Home Medications ?Medication ?Instructions ?Recorded ?Last Taken ?Type cyclobenzaprine 10 mg tablet 10 mg PO QHS PRN PRN musc le spasm 09/17/24 Unknown History gabapentin 300 mg capsule 600 mg PO TID 09/17/2409/17 History melatonin 5 mg tablet 5 mg PO QHS 09/17/24 5 History omeprazole 20 mg tablet,delayed 20 mg PO DAILY 5 09/16/24 History release Allergy/AdvReac Type Severity Reaction Status Date / Time bee pollen Allergy Anaphylaxis Verified 09/17/24 18:30 nickel AdvReac Rash Verified 09/17/24 18:30 tramadol AdvReac Nausea Verified 09/17/24 18:30 Social History Smoking Status: Current every day smoker tobacco type: cigarettes ROS ROS Narrative Review of Systems: Constitutional: Patient denies fever or chills. Eyes: Patient denies changes in vision or discharge from eyes. ENT: Patient denies runny nose, sore throat or ear pain. Resp: Patient denies shortness of breath or cough. CV: Patient denies chest pain, palpitations, heart racing or lower extremity edema. GI: Patient denies abdominal pain, nausea, vomiting, diarrhea or constipation. : Patient denies dysuria or hematuria. MSK: Patient admits to chronic back pain with neuropathy as per HPI. Skin: Patient denies rash, abscess, wounds or jaundice. Psych: Patient denies symptoms of uncontrolled depression or anxiety. Neuro: Patient denies headache, paresthesias or focal neurologic deficits. Allergy: Patient denies lip swelling, tongue swelling or urticaria. Hematology: Patient denies easy bleeding or easy bruisability. Endocrinology: Patient denies polyuria, polydipsia, polyphagia or heat/cold intolerance. 14 point ROS otherwise negative save for positives noted above in HPI. Vital Signs Vital Signs Vital Signs: 09/17/24 18:30 Temperature 98.3 F Temperature Source Oral Pulse Rate 103 H Respiratory Rate 18 Blood Pressure 121/80 H Blood Pressure Mean 93 Pulse Ox 95 Oxygen Delivery Method Room Air Weight Weight: 221 lb Body Mass Index (BMI) 30.8 Physical Exam Const alert, oriented x3 and no apparent distress Constitutional Narrative: Patient appears intoxicated. General Appearance: cooperative HEENT normocephalic, head/scalp atraumatic, hearing grossly normal bilaterally and moist oral mucous membranes Eyes PERRL and EOMs intact bilaterally Neck no lymphadenopathy and supple Resp normal respiratory effort, no retractions, no use of accessory muscles and clearto auscultation bilaterally Cardio regular rate and regular rhythm GI normal to inspection, nondistended, normoactive bowel sounds, soft to palpation,non-tender and non-distended GI Narrative: Obese. Extremity normal to inspection, full ROM and no clubbing, cyanosis or edema Skin Skin Narrative: Patient has no evidence of rash, abscess, wounds or jaundice. Neuro oriented x3, CN's II-XII intact bilaterally, moves all extremities and no focal motor deficits Neuro Narrative: Patient appears intoxicated. Sensorium / Orientation: awake, alert, oriented to person, oriented to place andoriented to time Speech: speech normal Psych affect normal Results Medical Records Data Attestation: I reviewed the patient's medical records Lab / Micro Data Attestation: I reviewed the patient's lab results. 09/17/24 18:49 09/17/24 18:49 Labs: Laboratory Results - last 24 hr 09/17/24 18:49: WBC 7.1, RBC 5.11, Hgb 17.1 H, Hct 49.4, MCV 96.7 H, MCH 33.5 H,MCHC 34.6, RDW Std Deviation 48.2 H, RDW Coeff of [place] 13.4, Plt Count 281, MPV 8.2, Immature Gran % (Auto) 0.300, Neut % (Auto) 53.0, Lymph % (Auto) 31.7, [place]% (Auto) 11.8 H, Eos % (Auto) 2.5, Baso % (Auto) 0.7, Absolute Neuts (auto) 3.8,Absolute Lymphs (auto) 2.26, Nucleated RBC % 0, Sodium 131 L, Potassium 4.5, Chloride 94 L, Carbon Dioxide 22.2, Anion Gap 14, BUN 4, Creatinine 0.60 L, EstimCreat Clear Calc 165.82, Est GFR (MDRD) Non-Af 113, BUN/Creatinine Ratio 6.5 L, Glucose 176 H, Calcium 8.7, Total Bilirubin 0.33, AST 63 H, ALT 64 H, Alkaline Phosphatase 116, Total Protein 7.4, Albumin 4.1, Globulin 3.3, A lbumin/Globulin Ratio 1.3, Urine Opiates Screen NEGATIVE, U Buprenorphine Qual NEGATIVE, Ur Oxycodone Screen NEGATIVE, Urine Methadone Screen NEGATIVE, Urine Fentanyl Screen NEGATIVE, Ur BarbituratesScreen NEGATIVE, Ur Phencyclidine Scrn NEGATIVE, Ur Amphetamines Screen NEGATIVE, U BenzodiazepinesScrn NEGATIVE, Urine Cocaine Screen NEGATIVE, U Cannabinoids Screen NEGATIVE, Ethyl Alcohol 368.0 H* Assessment & Plan Assessment/Plan (1) Acute alcohol intoxication: QUALIFIERS: Complication of substance-induced condition: uncomplicated Qualified Code(s): F10.920 -Alcohol use, unspecified with intoxication, uncomplicated (2) Alcohol abuse: (3) Alcoholic hepatitis: QUALIFIERS: Ascites presence: without ascites Qualified Code(s): K70.10 - Alcoholic hepatitis without ascites (4) Desire for detoxification: (5) Tobacco dependence: (6) COPD (chronic obstructive pulmonary disease): QUALIFIERS: COPD type: unspecified COPD Qualified Code(s): J44.9 - Chronic obstructive pulmonary disease, unspecified (7) Obesity (BMI 30.0-34.9): PLAN: Plan 1. Elevated DIEGO of 368 mg/dL present on admission consistent with Acute EtOH Intoxication in the setting of Chronic EtOH Abuse with the patient requesting EtOH detox - Admit to general medical floor under alcohol withdrawal protocol primarily consisting of phenobarbital taper. EtOH cessation will be strongly encouraged. Give ibuprofen as needed pain or fever. Give ondansetron as neededfor nausea and vomiting. 2. History of admission here from July 17, 2017 to July 20, 2017 for inpatient treatment of acutealcohol withdrawal and mild alcoholic hepatitis complicating #1 - Noted developing pattern of serial readmission. 3. History of EtOH hepatitis compounding #1 & #2 - Noted with AST of 63U/L and ALT of 64U/L with alkaline phosphatase of 116 mg/dL present on admission. 4. Tobacco abuse; with subsequent COPD adding to the medical complexity of #1 - #3 - Stable with no signs of acute flare at this time. Continue as needed nebulizers. Tobacco Cessation will be stronglyencouraged with nicotine patch offered to control cravings. 5. Obesity; with BMI of 30.8 this admission adding to the burden of disease outlined from #1 - #4 -Weight loss will be recommended. Check TSH. This complicates case may have recovery. 6. BPH - Stable. 7. GERD; on omeprazole - Maintain PPI. 8. OA; with chronic back pain plus neuropathy on gabapentin 3 times daily and as needed cyclobenzaprine - Current therapy to continue in addition to as neededibuprofen as outlined in #1. 9. DVT prophylaxis - Enoxaparin 40 mg sq daily. Total time: Approximately (but not less than) 75 minutes. Charges/Coding Visit Charges Inpatient E&M: 47061 Init Hosp L3 09/18/24 0707 Cosigner Signature (if applicable): CC: Dr. Joon Vinson, DO~ Signed [facility]06-20-2025 Discharge summary Author Doe Oh [facility] Note Date/Time September 17, 2024 11:2 0pm [facility] Medical Records Department [address] [place] [address] Emergency Department Summary 09/17/24 MR#: [id number] Acct: [id number] Name: MARIA DE JESUS HOGAN Rep #:[id number] : 1965 58 From: Doe Call PCP: OUT OF TOWN DOCTOR Status:ADM IN Location: [facility] [id number] [facility] <NEVA Ayala - Last Filed: 09/17/24 20:07> History of Present Illness Chief Complaint: Substance Abuse Narrative Narrative: 58-year-old male has a history of alcoholism. He drinks 6-9 tall boy beers a day and states his last drink was about 20 minutes ago. He is here requesting alcohol detox. He detoxed at [facility] several years ago and states he detoxed somewhere else in May of this year and lasted about a month before he started drinking again. He denies history of withdrawal seizures. He takes gabapentin for arthritis and neuropathy. His states he is prescribed vitamin B and an antiacid but he does not take them. He denies other drug use. He denies fever or chills, chest pain or shortness of breath, abdominal, vomiting, hematemesis, melena or hematochezia. [facility] <NEVA Ayala - Last Filed: 09/17/24 20:07> [facility] Medical History (Updated 09/17/24 @ 21:09 by Yasemin Weiss) Anxiety Sleep apnea Smoker Hypertension TIA (transient ischemic attack) EtOH dependence Home Medications ?Medication ?Instructions ?Recorded ?Last Taken ?Type cyclobenzaprine 10 mg tablet 10 mg PO QHS muscle spasm 09/17/24 Unknown History gabapentin 300 mg capsule 600 mg PO TID 09/17/2409/17 History melatonin 5 mg tablet 5 mg PO QHS 09/17/24 5 History omeprazole 20 mg tablet,delayed 20 mg PO DAILY 5 09/16/24 History release Allergy/AdvReac Type Severity Reaction Status Date / Time bee pollen Allergy Anaphylaxis Verified 09/17/24 18:30 nickel AdvReac Rash Verified 09/17/24 18:30 tramadol AdvReac Nausea Verified 09/17/24 18:30 Social History Smoking Status: Current every day smoker tobacco type: cigarettes ROS <NEVA Ayala - Last Filed: 09/17/24 20:07> ROS ED ROS Narrative Constitutional: Negative for fever, chills, malaise. CVS: Positive for chest pain. No syncope. Respiratory: Negative for cough. GI: Negative for abdominal pain, vomiting, melena, hematochezia. : Negative for dysuria. Neuro: Negative for headache. EXAM <NEVA Ayala - Last Filed: 09/17/24 20:07> Physical Exam Narrative Exam Narrative: CONST: Patient sitting in no acute distress. EYES: Normal inspection. NECK: Normal inspection. RESP: No respiratory distress, CTAB. CVS: Slightly tachycardic with regular rhythm, no murmur, no gallop. ABD: Soft and nontender, no guarding or rebound, nondistended. SKIN: Color normal, no rash, warm, dry, intact. EXTREMITIES: Normal appearance. NEURO: Alert and answering questions appropriately. PSYCH: Normal affect. Const Vital Signs: 09/17/24 18:30 Temperature 98.3 F Temperature Source Oral Pulse Rate 103 H Respiratory Rate 18 Blood Pressure 121/80 H Blood Pressure Mean 93 Pulse Ox 95 Oxygen Delivery Method Room Air <Dr. Doe Oh DO - Last Filed: 09/17/24 23:20> Physical Exam Const Vital Signs: 09/17/24 18:30 Temperature 98.3 F Temperature Source Oral Pulse Rate 103 H Respiratory Rate 18 Blood Pressure 121/80 H Blood Pressure Mean 93 Pulse Ox 95 Oxygen Delivery Method Room Air MDM <NEVA Ayala - Last Filed: 09/17/24 20:07> MDM MDM Narrative Medical decision making narrative: History gathered from: Patient and spouse Differential includes but not limited to no alcohol abuse/withdrawal, hepatitis,cirrhosis 58-year-old male here requesting alcohol detox. He is a daily heavy drinker andlast drink was 20 minutes prior to arrival. Currently asymptomatic. He is mildly tachycardic in the low 100s with otherwise normal vital signs. CBC showshemoglobin of 17.1, otherwise normal. Sodium 131, normal renal function, AST 63, ALT 64 which are lower than previous. Urine drug screen is negative. Alcohol is 368. I discussed the case with the hospitalist for admission. Lab Data Attestation: I reviewed the patient's lab results. Labs: Laboratory Results - last 24 hr 09/17/24 18:49 WBC 7.1 RBC 5.11 Hgb 17.1 H Hct 49.4 MCV 96.7 H MCH 33.5 H MCHC 34.6 RDW Std Deviation 48.2 H RDW Coeff of [place] 13.4 Plt Count 281 MPV 8.2 Immature Gran % (Auto) 0.300 Neut % (Auto) 53.0 Lymph % (Auto) 31.7 [place] % (Auto) 11.8 H Eos % (Auto) 2.5 Baso % (Auto) 0.7 Absolute Neuts (auto) 3.8 Absolute Lymphs (auto) 2.26 Nucleated RBC % 0 Sodium 131 L Potassium 4.5 Chloride 94 L Carbon Dioxide 22.2 Anion Gap 14 BUN 4 Creatinine 0.60 L Estim Creat Clear Calc 165.82 Est GFR (MDRD) Non-Af 113 BUN/Creatinine Ratio 6.5 L Glucose 176 H Calcium 8.7 Magnesium 2.1 Total Bilirubin 0.33 AST 63 H ALT 64 H Alkaline Phosphatase 116 Total Protein 7.4 Albumin 4.1 Globulin 3.3 Albumin/Globulin Ratio 1.3 Urine Opiates Screen NEGATIVE U Buprenorphine Qual NEGATIVE Ur Oxycodone Screen NEGATIVE Urine Methadone Screen NEGATIVE Urine Fentanyl Screen NEGATIVE Ur Barbiturates Screen NEGATIVE Ur Phencyclidine Scrn NEGATIVE Ur Amphetamines Screen NEGATIVE U Benzodiazepines Scrn NEGATIVE Urine Cocaine Screen NEGATIVE U Cannabinoids Screen NEGATIVE Ethyl Alcohol 368.0 H* <Dr. Doe Oh, DO - Last Filed: 09/17/24 23:20> [facility] Lab Data Labs: Laboratory Results - last 24 hr 09/17/24 18:49 WBC 7.1 RBC 5.11 Hgb 17.1 H Hct 49.4 MCV 96.7 H MCH 33.5 H MCHC 34.6 RDW Std Deviation 48.2 H RDW Coeff of [place] 13.4 Plt Count 281 MPV 8.2 Immature Gran % (Auto) 0.300 Neut % (Auto) 53.0 Lymph % (Auto) 31.7 [place] % (Auto) 11.8 H Eos % (Auto) 2.5 Baso % (Auto) 0.7 Absolute Neuts (auto) 3.8 Absolute Lymphs (auto) 2.26 Nucleated RBC % 0 Sodium 131 L Potassium 4.5 Chloride 94 L Carbon Dioxide 22.2 Anion Gap 14 BUN 4 Creatinine 0.60 L Estim Creat Clear Calc 165.82 Est GFR (MDRD) Non-Af 113 BUN/Creatinine Ratio 6.5 L Glucose 176 H Calcium 8.7 Magnesium 2.1 Total Bilirubin 0.33 AST 63 H ALT 64 H Alkaline Phosphatase 116 Total Protein 7.4 Albumin 4.1 Globulin 3.3 Albumin/Globulin Ratio 1.3 Urine Opiates Screen NEGATIVE U Buprenorphine Qual NEGATIVE Ur Oxycodone Screen NEGATIVE Urine Methadone Screen NEGATIVE Urine Fentanyl Screen NEGATIVE Ur Barbiturates Screen NEGATIVE Ur Phencyclidine Scrn NEGATIVE Ur Amphetamines Screen NEGATIVE U Benzodiazepines Scrn NEGATIVE Urine Cocaine Screen NEGATIVE U Cannabinoids Screen NEGATIVE Ethyl Alcohol 368.0 H* Treatment and Re-Evaluation Narrative: Attending note: I have personally performed a face to face assessment of the patient and have reviewed the LENY note. I personally made/approved the management plan and take responsibility for the patient management. I performeda substantive portion of the visit including all aspects of the following. My laboy findings include: Here for alcohol detox. 5-6 drinks a day had detox this past May was sober for a month. No withdrawal seizures. No suicidal homicidal ideations. Workup alcohol level 368, no clinical intoxication. Slight elevated transaminitis. Discussed with hospitalist for admission. Discharge Plan Dx/Rx/DC Orders Clinical Impression: Alcohol abuse, Desire for detoxification, Alcoholic hepatitis Disposition Disposition: Acute Care Hospital [facility] Discharge Date/Time: 09/17/24 20:36 What to do if you have Problems For any increased pain, shortness of breath, bleeding, nausea or vomiting, chestpain, or any unexpected problems, contact your Primary Care Provider. Call [facility] ([phone]) or report to the closest Emergency Room. Call 911 if necessary. 09/17/242319 <Electronically signed by Doe Call> Cosigner Signature (if applicable): 09/17/242006 <Electronically signed by Anat HOOKS> CC: ~ Signed [facility] Work Phone: 1(102) 309-232806-19-2025 Discharge summary [facility] Medical Records Department [address] [place] [address] Emergency Department Summary 09/17/24 MR#: [id number] Acct: [id number] Name: MARIA DE JESUS HOGAN Rep #:[id number] : 1965 58 From: Doe Call PCP: OUT OF TOWN DOCTOR Status:ADM IN Location: MA3 SL582-5 HPI History of Present Illness Chief Complaint: Substance Abuse Narrative Narrative: 58-year-old male has a history of alcoholism. He drinks 6-9 tall boy beers a day and states his last drink was about 20 minutes ago. He is here requesting alcohol detox. He detoxed at [facility] severalyears ago and states he detoxed somewhere else in May of this year and lasted about a month before he started drinking again. He denies history of withdrawal seizures. He takes gabapentin for arthritis and neuropathy. His states he is prescribed vitamin B and an antiacid but he does not take them. He denies other drug use. He denies fever or chills, chest pain or shortness of breath, abdominal, vomiting, hematemesis, melena or hematochezia. [facility] Medical History (Updated 09/17/24 @ 21:09 by Yasemin Weiss) Anxiety Sleep apnea Smoker Hypertension TIA (transient ischemic attack) EtOH dependence Home Medications ?Medication ?Instructions ?Recorded ?Last Taken ?Type cyclobenzaprine 10 mg tablet 10 mg PO QHS muscle spasm 09/17/24 Unknown History gabapentin 300 mg capsule 600 mg PO TID 09/17/2409/17 History melatonin 5 mg tablet 5 mg PO QHS 09/17/24 5 History omeprazole 20 mg tablet,delayed 20 mg PO DAILY 5 09/16/24 History release Allergy/AdvReac Type Severity Reaction Status Date / Time bee pollen Allergy Anaphylaxis Verified 09/17/24 18:30 nickel AdvReac Rash Verified 09/17/24 18:30 tramadol AdvReac Nausea Verified 09/17/24 18:30 Social History Smoking Status: Current every day smoker tobacco type: cigarettes ROS ROS ED ROS Narrative Constitutional: Negative for fever, chills, malaise. CVS: Positive for chest pain. No syncope. Respiratory: Negative for cough. GI: Negative for abdominal pain, vomiting, melena, hematochezia. : Negative for dysuria. Neuro: Negative for headache. EXAM Physical Exam Narrative Exam Narrative: CONST: Patient sitting in no acute distress. EYES: Normal inspection. NECK: Normal inspection. RESP: No respiratory distress, CTAB. CVS: Slightly tachycardic with regular rhythm, no murmur, no gallop. ABD: Soft and nontender, no guarding or rebound, nondistended. SKIN: Color normal, no rash, warm, dry, intact. EXTREMITIES: Normal appearance. NEURO: Alert and answering questions appropriately. PSYCH: Normal affect. Const Vital Signs: 09/17/24 18:30 Temperature 98.3 F Temperature Source Oral Pulse Rate 103 H Respiratory Rate 18 Blood Pressure 121/80 H Blood Pressure Mean 93 Pulse Ox 95 Oxygen Delivery Method Room Air Physical Exam Const Vital Signs: 09/17/24 18:30 Temperature 98.3 F Temperature Source Oral Pulse Rate 103 H Respiratory Rate 18 Blood Pressure 121/80 H Blood Pressure Mean 93 Pulse Ox 95 Oxygen Delivery Method Room Air MDM MDM MDM Narrative Medical decision making narrative: History gathered from: Patient and spouse Differential includes but not limited to no alcohol abuse/withdrawal, hepatitis,cirrhosis 58-year-old male here requesting alcohol detox. He is a daily heavy drinker andlast drink was 20 minutes prior to arrival. Currently asymptomatic. He is mildly tachycardic in the low 100s with otherwise normal vital signs. CBC showshemoglobin of 17.1, otherwise normal. Sodium 131, normal renal function, AST 63, ALT 64 which are lower than previous. Urine drug screen is negative. Alcohol is 368. Idiscussed the case with the hospitalist for admission. Lab Data Attestation: I reviewed the patient's lab results. Labs: Laboratory Results - last 24 hr 09/17/24 18:49 WBC 7.1 RBC 5.11 Hgb 17.1 H Hct 49.4 MCV 96.7 H MCH 33.5 H MCHC 34.6 RDW Std Deviation 48.2 H RDW Coeff of [place] 13.4 Plt Count 281 MPV 8.2 Immature Gran % (Auto) 0.300 Neut % (Auto) 53.0 Lymph % (Auto) 31.7 [place] % (Auto) 11.8 H Eos % (Auto) 2.5 Baso % (Auto) 0.7 Absolute Neuts (auto) 3.8 Absolute Lymphs (auto) 2.26 Nucleated RBC % 0 Sodium 131 L Potassium 4.5 Chloride 94 L Carbon Dioxide 22.2 Anion Gap 14 BUN 4 Creatinine 0.60 L Estim Creat Clear Calc 165.82 Est GFR (MDRD) Non-Af 113 BUN/Creatinine Ratio 6.5 L Glucose 176 H Calcium 8.7 Magnesium 2.1 Total Bilirubin 0.33 AST 63 H ALT 64 H Alkaline Phosphatase 116 Total Protein 7.4 Albumin 4.1 Globulin 3.3 Albumin/Globulin Ratio 1.3 Urine Opiates Screen NEGATIVE U Buprenorphine Qual NEGATIVE Ur Oxycodone Screen NEGATIVE Urine Methadone Screen NEGATIVE Urine Fentanyl Screen NEGATIVE Ur Barbiturates Screen NEGATIVE Ur Phencyclidine Scrn NEGATIVE Ur Amphetamines Screen NEGATIVE U Benzodiazepines Scrn NEGATIVE Urine Cocaine Screen NEGATIVE U Cannabinoids Screen NEGATIVE Ethyl Alcohol 368.0 H* [facility] Lab Data Labs: Laboratory Results - last 24 hr 09/17/24 18:49 WBC 7.1 RBC 5.11 Hgb 17.1 H Hct 49.4 MCV 96.7 H MCH 33.5 H MCHC 34.6 RDW Std Deviation 48.2 H RDW Coeff of [place] 13.4 Plt Count 281 MPV 8.2 Immature Gran % (Auto) 0.300 Neut % (Auto) 53.0 Lymph % (Auto) 31.7 [place] % (Auto) 11.8 H Eos % (Auto) 2.5 Baso % (Auto) 0.7 Absolute Neuts (auto) 3.8 Absolute Lymphs (auto) 2.26 Nucleated RBC % 0 Sodium 131 L Potassium 4.5 Chloride 94 L Carbon Dioxide 22.2 Anion Gap 14 BUN 4 Creatinine 0.60 L Estim Creat Clear Calc 165.82 Est GFR (MDRD) Non-Af 113 BUN/Creatinine Ratio 6.5 L Glucose 176 H Calcium 8.7 Magnesium 2.1 Total Bilirubin 0.33 AST 63 H ALT 64 H Alkaline Phosphatase 116 Total Protein 7.4 Albumin 4.1 Globulin 3.3 Albumin/Globulin Ratio 1.3 Urine Opiates Screen NEGATIVE U Buprenorphine Qual NEGATIVE Ur Oxycodone Screen NEGATIVE Urine Methadone Screen NEGATIVE Urine Fentanyl Screen NEGATIVE Ur Barbiturates Screen NEGATIVE Ur Phencyclidine Scrn NEGATIVE Ur Amphetamines Screen NEGATIVE U Benzodiazepines Scrn NEGATIVE Urine Cocaine Screen NEGATIVE U Cannabinoids Screen NEGATIVE Ethyl Alcohol 368.0 H* Treatment and Re-Evaluation Narrative: Attending note: I have personally performed a face to face assessment of the patient and have reviewed the LENY note. I personally made/approved the management plan and take responsibility for the patient management. I performeda substantive portion of the visit including all aspects of the following. My laboy findings include: Here for alcohol detox. 5-6 drinks a day had detox this past May was sober for a month. No withdrawal seizures. No suicidal homicidal ideations. Workup alcohol level 368, no clinical intoxication. Slight elevated transaminitis. Discussed with hospitalist for admission. Discharge Plan Dx/Rx/DC Orders Clinical Impression: Alcohol abuse, Desire for detoxification, Alcoholic hepatitis Disposition Disposition: Acute Care Hospital [facility] Discharge Date/Time: 09/17/24 20:36 What to do if you have Problems For any increased pain, shortness of breath, bleeding, nausea or vomiting, chestpain, or any unexpected problems, contact your Primary Care Provider. Call [facility] ([phone]) or report tothe closest Emergency Room. Call 911 if necessary. 09/17/242319 Cosigner Signature (if applicable): 09/17/242006 CC: ~ Signed [facility]06-19-2025 Evaluation note* Diagnosis Onset Date Resolution Status Admit Date Acute alcohol intoxication acute September 17, 2024 8:05pm Alcohol withdrawal acute August 302024 8:05pm Alcoholic hepatitis acute September 17, 2024 8:05pm Desire for detoxification acute September 17, 2024 8:05pm Obesity (BMI 30.0-34.9) acute J 2024 8:05pm Alcohol abuse chronic September 17, 2024 8:05pm Tobacco dependence chronic August 302024 8:05pm COPD (chronic obstructive pulmonary disease) suspected September 17 8:05pm [facility] Work Phone: 1(486) 143-265305-27-2025 NoteMyChart message sent to inform the patient that he was referred for smoking cessation counseling, gave contact information, will provide follow up.[facility]05-19-2025 Telephone encounter Note* Telephone Encounter - Lisa Willis MA - 08/17/2024 7:49 AM EDT Therapy completed [id number] Miscellaneous Notes* Telephone Encounter - Lisa Willis MA - 08/17/2024 7:49 AM EDT Therapy completed * Telephone Encounter - Paige Chandra - 08/14/2024 1:20 PM EDT Medication name: valACYclovir (Valtrex) 1 g tablet [...] up the medication: Yes documented in this encounterSNewark [id number] Telephone encounter Note* Telephone Encounter - Paige Chandra - 08/14/2024 1:20 PM EDT Medication name: valACYclovir (Valtrex) 1 g tablet [...] prior to picking up the medication: Yes [facility] [id number] History of Present illness Narrative* Lynda Rasheed MD - 08/14/2024 9:40 AM EDT Images from the original note were not included. [facility] [place] [address] [facility] [address] Dept: [phone] Dept Loc: [phone] Reason for Visit: Herpes Zoster Assessment and [...] tablet (5 mg) by mouth every 8 hoursas needed for severe pain (7-10) for up [...] He has severe pain. He denies any blurredvision any issues with his eye. He has [...] 09/26/2023 Diabetes Screening 11/02/2023 COVID-19 Vaccine ( - season) 2023 Influenza Vaccine (Season Ended) 2024 [...] is noted completely on the right side ofhis torso there is no evidence of cellulitis [...] daily for 5 days. Remove & discard patchwithin 12 hours or as directed by . [...] (5 mg) by mouth every 8 hours asneeded for severe pain (7-10) for up to [...] CYST REMOVAL face EGD (HISTORICAL) 07/23/2022 Dr. Estrella[facility] SMALL INTESTINE SURGERY UPPER GASTROINTESTINAL ENDOSCOPY 09/27/2021 normal WISDOM TOOTH EXTRACTION [6] Family History Problem Relation Name Age of Onset Depression Sister Maria De Jesus Hogan Other ([id number]) Sister Maria De Jesus Hogan agoraphobia Arthritis Sister Maria De Jesus Hogan Cancer Mother Maria De Jesus Hogan colon rectal cancer; dx after age 50 Other ([id number]) Mother Maria De Jesus Hogan alcoholism Alcohol abuse Mother Maria De Jesus Hogan Stroke Mother Maria De Jesus Hogan Other ([id number]) Father Maria De Jesus Hogan h/o rheumatic fever, cardiac arrest due to bee sting Hypertension Father Maria De Jesus Hogan documented in this [facility]05-15-2025 History of Present illness Narrative* PABLO Paul - 08/13/2024 1:30 PM EDT Missed Session Unexcused Pt did not call or show for Scheduled Assessment on this date. documented in this [facility]05-12-2025 Hospital Discharge instructions* Discharge Instructions* Catalino Waddell MD - 08/10/2024 4:49 PM EDT Pain medication sent to pharmacy. Try to stretch this out as long as you can as this is already a repeat prescription. * Attachments The following attachments cannot be sent through Care Everywhere. * Shingles Discharge Instructions (Mongolian) documented in this [facility]05-12-2025 Emergency department Note* Catalino Waddell MD - 08/10/2024 4:18 PM EDT EMERGENCY DEPARTMENT ENCOUNTER Pt Name: Maria De [...] CYST REMOVAL face EGD (HISTORICAL) 07/23/2022 Dr. Estrella[facility] SMALL INTESTINE SURGERY UPPER GASTROINTESTINAL ENDOSCOPY 09/27/2021 [...] Depression Sister Maria De Jesus Hogan Other ([id number]) Sister Maria De Jesus Hogan agoraphobia Arthritis Sister Maria De Jesus Hogan Cancer Mother Maria De Jesus Hogan colon rectal cancer; dx after age 50 Other ([id number]) Mother Maria De Jesus Hogan alcoholism Alcohol abuse Mother Maria De Jesus Hogan Stroke Mother Maria De Jesus Hogan Other ([id number]) Father Maria De Jesus Hogan h/o rheumatic [...] 0 min Stress: Stress Concern Present (08/04/2024) [employer] [place] [employer] - Occupational Stress Questionnaire Feeling of Stress : To some extent Social Connections: Moderately Isolated (08/04/2024) Social Connection and Isolation Panel [NHANES] Frequency of Communication with Friends and Family: Twice a week Frequency of Social Gatherings with Friends and Family: Twice a week Attends Taoist Services: Never Active Member of Clubs or [...] Phys[facility] RAD[facility] (Per Emergency Physician): Interpretation per [...] shingles rash. Differential shingles pain, no secondary bacterialinfection noted, no other complaints. Patient clearly has a shingles rash which is noted to be painful so we will give him another course of oxycodone and have him follow-up. He is already on NSAIDs.Recommend topical lidocaine as well. Medical history impacting this visit includes recent shingles.Social history impacting this visit includes recent alcohol detox. I reviewed his discharge summaryfrom 08/06/2024 after he was in the hospital [...] PM PATIENT REFERRED TO: Lynda Rasheed MD [address] [place] [address] [address] [facility] [address] In 1 week DISCHARGE MEDICATIONS: New Prescriptions LIDOCAINE (LIDODERM) 5 % PATCH Apply 1 patch topically daily for 5 days. Remove & discard patchwithin 12 hours or as directed by . OXYCODONE (ROXICODONE) 5 MG IMMEDIATE RELEASE TABLET Take 1 tablet (5 mg) by mouth every 8 hours asneeded for severe pain (7-10) for up to 3 days. (Comment: Please note this report has been produced using speech recognition software and may contain errors related to that system including errors in grammar, punctuation, and spelling, as well as words and phrases that may be inappropriate. If there are any questions or concerns please feel freeto contact the dictating provider for clarification.) Catalino Waddell MD (electronically signed) Emergency Medicine Provider Catalino Waddell MD 08/10/24 1653 * Ashleigh Cunningham RN - 08/10/2024 4:18 PM EDT Recently diagnosed with shingles and is here for increasing pain to area on abdomen. documented in this [facility]05-12-2025 Emergency department Triage note* Ashleigh Cunningham RN - 08/10/2024 4:18 PM EDT Recently diagnosed with shingles and is here for increasing pain to area on abdomen. [facility] [id number] Physician Emergency department Note* Catalino Waddell MD - 08/10/2024 4:18 PM EDT EMERGENCY DEPARTMENT ENCOUNTER Pt Name: Maria De [...] CYST REMOVAL face EGD (HISTORICAL) 07/23/2022 Dr. Estrella[facility] SMALL INTESTINE SURGERY UPPER GASTROINTESTINAL ENDOSCOPY 09/27/2021 [...] Depression Sister Maria De Jesus Hogan Other ([id number]) Sister Maria De Jesus Hogan agoraphobia Arthritis Sister Maria De Jesus Hogan Cancer Mother Maria De Jesus Hogan colon rectal cancer; dx after age 50 Other ([id number]) Mother Maria De Jesus Hogan alcoholism Alcohol abuse Mother Maria De Jesus Hogan Stroke Mother Maria De Jesus Hogan Other ([id number]) Father Maria De Jesus Hogan h/o rheumatic [...] 0 min Stress: Stress Concern Present (08/04/2024) [employer] [place] [employer] - Occupational Stress Questionnaire Feeling of Stress : To some extent Social Connections: Moderately Isolated (08/04/2024) Social Connection and Isolation Panel [NHANES] Frequency of Communication with Friends and Family: Twice a week Frequency of Social Gatherings with Friends and Family: Twice a week Attends Taoist Services: Never Active Member of Clubs or [...] shingles rash. Differential shingles pain, no secondary bacterialinfection noted, no other complaints. Patient clearly has a shingles rash which is noted to be painful so we will give him another course of oxycodone and have him follow-up. He is already on NSAIDs.Recommend topical lidocaine as well. Medical history impacting this visit includes recent shingles.Social history impacting this visit includes recent alcohol detox. I reviewed his discharge summaryfrom 08/06/2024 after he was in the hospital [...] PM PATIENT REFERRED TO: Lynda Rasheed MD [address] [place] [address] [address] [facility] [address] In 1 week DISCHARGE MEDICATIONS: New Prescriptions LIDOCAINE (LIDODERM) 5 % PATCH Apply 1 patch topically daily for 5 days. Remove & discard patchwithin 12 hours or as directed by . OXYCODONE (ROXICODONE) 5 MG IMMEDIATE RELEASE TABLET Take 1 tablet (5 mg) by mouth every 8 hours asneeded for severe pain (7-10) for up to 3 days. (Comment: Please note this report has been produced using speech recognition software and may contain errors related to that system including errors in grammar, punctuation, and spelling, as well as words and phrases that may be inappropriate. If there are any questions or concerns please feel freeto contact the dictating provider for clarification.) Catalino Waddell MD (electronically signed) Emergency Medicine Provider Catalino Waddell MD 08/10/24 1653 [facility] HospitalYkqzzc82-33-8893 Telephone encounter Note* Telephone Encounter - Sona Claudia - 08/10/2024 3:55 PM EDT Images from the original note were not included. Message released to patient as written. Left message to return call Lynda Rasheed MD46 minutes ago (2:21 PM) 1. It could be when he was in the hospital that some medications were removed. It appears he was admitted on 08 03. I have not seen him for this shingles pain. I would recommend a hospital follow-up. To be evaluated before I can just give him any medication for this. Patient's further questions if applicable: Patient verbalized understanding and states that they have an appointment for shingles pain for Monday 08/14 they were just trying to see if they could get something called in sooner. FYI Were all questions from office addressed or relayed to the patient from encounter: Yes [facility] HospitalOsztib86-59-0490 Miscellaneous Notes* Telephone Encounter - Sona Claudia - 08/10/2024 3:55 PM EDT Images from the original note were not included. Message released to patient as written. Left message to return call Lynda Rasheed MD46 minutes ago (2:21 PM) 1. It could be when he was in the hospital that some medications were removed. It appears he was admitted on 08 03. I have not seen him for this shingles pain. I would recommend a hospital follow-up. To be evaluated before I can just give him any medication for this. Patient's further questions if applicable: Patient verbalized understanding and states that they have an appointment for shingles pain for Monday 08/14 they were just trying to see if they could get something called in sooner. FYI Were all questions from office addressed or relayed to the patient from encounter: Yes * Telephone Encounter - Kristina Fan MA - 08/10/2024 3:08 PM EDT Images from the original note were not included. Left message to return call Lynda Rasheed MD46 minutes ago (2:21 PM) 1. It could be when he was in the hospital that some medications were removed. It appears he was admitted on 5 5. I have not seen him for this shingles pain. I would recommend a hospital follow-up. To be evaluated before I can just give him any medication for this. * Telephone Encounter - Lynda Rasheed MD - 08/10/2024 2:21 PM EDT 1. It could be when he was in the hospital that some medications were removed. It appears he was admitted on 5 5. I have not seen him for this shingles pain. I would recommend a hospital follow-up. To be evaluated before I can just give him any medication for this. * Telephone Encounter - Tea Reno LPN - 08/10/2024 12:59 PM EDT Talked to patient and answered questions about his medications. Patient also wanted to see if he could get something for his shingles pain. He said it isn't much better and he did get something for the pain but it isn't strong enough. What do you suggest for it and what could you prescribe for it? Please advise. * Telephone Encounter - Cosme Austin - 08/07/2024 3:17 PM EDT Name of caller: Maria De Jesus Contact phone number: [phone] Relationship to Patient: patient Provider: Dr. Rasheed Practice: [facility] Chief Complaint/Reason for Call: Patient called in stating that someone removed some of his medications off his chart and he would like to now why. Please follow up to advise Best time of day caller can be reached: Any Patient advised that office/PCP has 24-48 business hours to return their call: Yes documented in this encounterSNewark [id number] Telephone encounter Note* Telephone Encounter - Kristina Fan MA - 08/10/2024 3:08 PM EDT Images from the original note were not included. Left message to return call Lynda Rasheed MD46 minutes ago (2:21 PM) 1. It could be when he was in the hospital that some medications were removed. It appears he was admitted on 5 5. I have not seen him for this shingles pain. I would recommend a hospital follow-up. To be evaluated before I can just give him any medication for this. [facility] [id number] Telephone encounter Note* Telephone Encounter - Lynda Rasheed MD - 08/10/2024 2:21 PM EDT 1. It could be when he was in the hospital that some medications were removed. It appears he was admitted on 5 5. I have not seen him for this shingles pain. I would recommend a hospital follow-up. To be evaluated before I can just give him any medication for this. [facility] HospitalTpoxpw25-00-1667 Telephone encounter Note* Telephone Encounter - Tea Reno LPN - 08/10/2024 12:59 PM EDT Talked to patient and answered questions about his medications. Patient also wanted to see if he could get something for his shingles pain. He said it isn't much better and he did get something for the pain but it isn't strong enough. What do you suggest for it and what could you prescribe for it? Please advise. [facility] HospitalNxhoco27-35-4810 Telephone encounter Note* Telephone Encounter - Cosme Austin - 08/07/2024 3:17 PM EDT Name of caller: Maria De Jesus Contact phone number: [phone] Relationship to Patient: patient Provider: Dr. Rasheed Practice: [facility] Chief Complaint/Reason for Call: Patient called in stating that someone removed some of his medications off his chart and he would like to now why. Please follow up to advise Best time of day caller can be reached: Any Patient advised that office/PCP has 24-48 business hours to return their call: Yes [facility] HospitalXnnxkz92-34-4931 Nurse Note* Neelam Cody RN - 08/06/2024 2:51 PM EDT Patient is A&O x4, cooperative, social. He is up steady, eating well, compliant with medications. He continues Valtrex for shingles. CIWA monitored. Order to discharge home received. Instructions, medications and appointments reviewed and he voiced understanding. He denies SI/HI/AVH. Belongingsreturned. Meds to beds given to patient. Escorted to [address] [place] [address], picked up by his . [facility] [id number] Nurse Note* Neelam Cody RN - 08/06/2024 2:51 PM EDT Patient is A&O x4, cooperative, social. He is up steady, eating well, compliant with medications. He continues Valtrex for shingles. CIWA monitored. Order to discharge home received. Instructions, medications and appointments reviewed and he voiced understanding. He denies SI/HI/AVH. Belongingsreturned. Meds to beds given to patient. Escorted to [address] [place] [address], picked up by his . * Evelyn Abad RN - 08/06/2024 6:36 AM EDT 2 attempts done for blood draw. Unable to retrieve blood. 2nd nurse to attempt. * Evelyn Abad RN - 08/06/2024 12:28 AM EDT Patient is up and steady, seen in group room. Pt is cooperative and med compliant. Pt denies SI/HI/AVH. Pt encouraged to notify staff for any questions and concerns. * Roma White LPN - 08/05/2024 6:28 PM EDT One episode of emesis noted shortly after administration of PRN oxycodone. Patient reports this is a normal occurrence for him-instructed to alert staff of any further potential episodes of emesis. PRN Zofran given at 1735-per patient, medication was effective. No further needs or concerns voiced. Safety maintained. * Roma White LPN - 08/05/2024 4:11 PM EDT PRN ibuprofen given at 1341 as a first line defense for c/o 8/10 pain in R rib/back-patient reportspain is associated with his recent shingles Dx. Per patient, first line defense was ineffective-second line PRN oxycodone administered at 1609. Patient instructed to alert staff if medication is ineffective-will continually monitor for effective pain management. No further needs or concerns voiced. Safety maintained. * Roma White LPN - 08/05/2024 9:22 AM EDT Patient seen in room at time of interview-presented with an appropriate affect. Mood is euthymic/bright. Patient up @patricio-gait is steady. Alert and oriented x4. Patient reports good appetite and sleep. Encouragement with ADLs provided. Social/pleasant/friendly with staff and peers- seen in attendance at group therapy. Cooperative with [...] concerns. Plan of care ongoing. Safety maintained. * Evelyn Abad RN - 08/04/2024 10:48 PM EDT Patient is up and steady, seen in group room socializing. Pt is cooperative and med compliant. Pt has shingles on right flank and back. Pt denies SI/HI/AVH. Pt encouraged to notify staff for any questions and concerns. * Lauren Irby RN - 08/04/2024 6:12 PM EDT Administered PRN Oxycodone for shingles pain. Will monitor effectiveness. * Lauren Irby RN - 08/04/2024 10:32 AM EDT Patient withdrawn to room thus far. Independent [...] concerns. Will monitor for safety this shift. * Kristina Hampton RN - 08/04/2024 12:50 AM EDT Pt arrived from ER via cart accompanied by security and transport. Pt steady on his feet at this time x1 assist, . Pt skin check completed upon arrival to unit. Pt has shingles to right flank and back. Pt drinking 8-10 beers a day. Pt smokes 1 and a half packs a day of cigarettes. Denies any other drug use, [facility] consulted for shingles management , sores and [...] monitor pt for safety. documented in this [facility]05-08-2025 Hospital course Narrative* Robert Coats MD - 08/06/2024 12:26 PM EDT Images from the original note were not included. ADDICTION MEDICINE DETOX UNIT DISCHARGE SUMMARY __ Patient MRN Maria De Jesus Hogan [id number] 1965 Admit Date Discharge Date 08/03/2024 08/06/2024 [...] disorder and has been admitted to the [facility] multiple times in the past for similar presentation, with last known admission to the detox unit on 06/02/2024 the patient left [facility] on 06/04/2024. During evaluation today, patient was evaluated for acute withdrawal symptoms, which patient denied.Patient was observed ambulating with no alterations or deficits in his gait. Patient did not appearto be in any acute distress. Patient reports [...] 364 ms QTC Interval 461 ms P [place] 35 degrees QRS [place] 80 degrees T Wave [place] 47 degrees RI Interval 154 ms Drug screen panel, emergency [...] Your Medications These medications were sent to [facility] [address] [place], [place] [id number] Hours: Saturday to Saturday 10 am to 6 pm gabapentin 400 MG capsule ibuprofen 800 MG tablet oxyCODONE 5 MG immediate release tablet valACYclovir 1 g tablet Follow Up [facility] [address] [place] [address] Go on 08/13/2024 At 1:30 PM for intake assessment for intensive outpatient program and addiction medicine follow-up. Future Appointments Date Time Provider Department Center 08/13/2024 1:30 PM Ammon Abdul [facility] ADD IOP None 10/21/2024 3:20 PM Lynda Rasheed MD [facility] The patient was also instructed to: Attend [...] process. Jonatan Mckeon MD documented in this [facility]05-08-2025 [facility] 08-06-2024 Note* Care Coordination - JEREMY Solis - 08/06/2024 12:25 PM EDT Social work consult placed for patient. None of the 5 areas of S NAHOMY noted at current time. Social work consult cleared [facility] HospitalHoashp08-57-5882 Note* Care Coordination - JEREMY Solis - 08/06/2024 12:25 PM EDT Social work consult placed for patient. None of the 5 areas of S NAHOMY noted at current time. Social work consult cleared [facility] HospitalAlocvg74-07-1093 Miscellaneous Notes* Care Coordination - JEREMY Solis - 08/06/2024 12:25 PM EDT Social work consult placed for patient. None of the 5 areas of S NAHOMY noted at current time. Social work consult cleared * Care Coordination - JEREMY Verdugo-Néstor - 08/06/2024 11:29 AM EDT Patient being discharged this date. Social work met with patient at bedside. Patient stated he feels he is ready to leave and denies SI/HI/AVH. Patient will be returning to his home with transportation provided by his . Patient is agreeable to follow-up as scheduled with CDIOP at the [facility] on 08/13 at 130. Patient denied any other social work needs at this time. Patient acknowledgedshe may contact the unit should needs arise after discharge. * Care Plan - Neelam Cody RN - 08/06/2024 9:58 AM EDT Problem: Drug Abuse/Detox Goal: Will have no detox symptoms and will verbalize plan for changing drug- related behavior Outcome: Progressing Problem: Potential for Substance Withdrawal Goal: Verbalizes signs/symptoms of withdrawal Outcome: Progressing Goal: Reports signs/symptoms of withdrawal Outcome: Progressing Goal: Free of withdrawal symptoms Outcome: Progressing * Group Note - Aurora Camarena - 08/05/2024 12:12 PM EDT Department: [facility]IVITIES THER[facility] Group Topic: Recreation Therapy Group [...] on their experience of participation, as well as,the process of reconnection to leisure interests. Name: Maria De Jesus Hogan Date of : 1965 MR: [id number] Appearance: Good eye contact Affect: Appropriate Behavior: Pleasant Alertness: Alert Speech: Appropriate Level/Quality of Participation: engaged Interactions with others: supportive Interventions utilized were Building rapport and engagement Patient's Response to Intervention: Patient came in toward the end of group and engaged in remaining portion of intervention. Patient was observed being interactive with peers and laughing during thegroup at times. Encouragement offered in utilizing healthy [...] with complication (HCC) Shingles (herpes zoster) polyneuropathy * Care Plan - Roma White LPN - 08/05/2024 9:21 AM EDT Problem: Drug Abuse/Detox Goal: Will have no detox symptoms and will verbalize plan for changing drug- related behavior Outcome: Progressing Problem: Potential for Substance Withdrawal Goal: Verbalizes signs/symptoms of withdrawal Outcome: Progressing Goal: Reports signs/symptoms of withdrawal Outcome: Progressing Goal: Free of withdrawal symptoms Outcome: Progressing * Care Coordination - JEREMY Solis - 08/04/2024 1:06 PM EDT Patient scheduled for [facility] intake assessment on 08/13/2024 at 1:30 PM. All information included in patient's discharge paperwork. * Care Coordination - JEREMY Solis - 08/04/2024 8:55 AM EDT Patient reports plans to engage in [facility]. Declining residential as an option at current time. [facility] PRESSMAN will assist with scheduling patient intake appointment. * Care Coordination - JEREMY Solis - 08/04/2024 8:00 AM EDT Behavioral Health Psycho-Social Assessment (Social Work) Date: 08/04/2024 Patient Name: Maria De Jesus Hogan : 1965 Identifying Information: Patient is a 58-year-old male mated to [address] E. for detox and alcohol. Patient is well-known to addiction medicine team. Previously on the unit on 06/02/2024 but left AMAon 06/04/2024. Reports that his family members had [...] Patient has history of noncompliance with treatment m edications Patient has history of psychiatric admission. Reports admissions were due to suicidal ideation while intoxicated. Denies history of recent or past history suicide attempts. Patient denies current SI/HI/AVH. Patient does have an extensive history of passive SI secondary tointoxication. Patient denies plan, intent, or method but [...] Patient does have extensive history of falls whileintoxicated. Patient denies any history of MAT engagement. Patient reports his longest period of sobriety was 6 months. Patient most recently only being able to maintain sobriety for 2 weeks. Patient has previous history of detox occurring on 06/02/2024 (AMA), 05/07/2024, 01/23/2024, 07/27/2023,07/08/2023, 02/08/2023, 05/20/2023 (medical), 10/25/2021, 02/15/2021 (left AMA), [...] as an adult. Patient denies any history Orbisonia or status. Family Constellation/Childhood History: Patient reports that he is currently to his living in [facility]. Patient reports that he has 3 biological children and 4 stepchildren. Patient reports that his father in his 11 years old. Patient did not report his mother is stillalive currently. Patient was born and raised in [place], [place] by his mother and father. He reports that his father when he was 11 years old, and this was traumatic for him. Patient reports that he was raisedprimarily by his mother for the remainder of his childhood. He denies childhood abuse. Education/Work: Patient reports that he graduated high school. 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 Patient denies SSI/SSD. Cultural/Spirituality/Leisure: Patient denies any cultural needs or concerns at the current time. Patient denies identify any sikhism preference. It is unknown if patient is [...] plan, intent, or method but reports more increasedfeelings of depression and sadness.) Activating Events (Recent): Recent loss(es) or other significant negative event(s) (legal, financial, relationship, etc.) Describe:: Ongoing struggles with substance use Treatment History: Previous psychiatric diagnoses and treatments, Non-compliant with treatment, [facility] ([facility] depression and anxiety. No [...] Plan: Current plan is for patient stabilization. [facility] PRESSMAN patient will continue work together to establish appropriate aftercare plan based on patient sobriety, needs, and resource available to local community. Patient encouraged to engage in all activities that are offered to them while they are on the unit.Patient report needing additional current time. Patient encouraged to seek out [facility] unit staff should they identify any additional [...] to contact the dictating provider for clarification. * Care Plan - Kristina Hampton RN - 08/04/2024 6:50 AM EDT Care plan reviewed documented in this [facility]05-08-2025 Note* Care Coordination - JEREMY Verdugo-S - 08/06/2024 11:29 AM EDT Patient being discharged this date. Social work met with patient at bedside. Patient stated he feels he is ready to leave and denies SI/HI/AVH. Patient will be returning to his home with transportation provided by his . Patient is agreeable to follow-up as scheduled with CDIOP at the [facility] office on 08/13 at 130. Patient denied any other social work needs at this time. Patient acknowledgedshe may contact the unit should needs arise after discharge. [employer] Phone: 1(497) 361-873205-08-2025 Note* Care Coordination - ANAYA Verdugo - 08/06/2024 11:29 AM EDT Patient being discharged this date. Social work met with patient at bedside. Patient stated he feels he is ready to leave and denies SI/HI/AVH. Patient will be returning to his home with transportation provided by his . Patient is agreeable to follow-up as scheduled with CDIOP at the [facility] office on 08/13 at 130. Patient denied any other social work needs at this time. Patient acknowledgedshe may contact the unit should needs arise after discharge. [employer] Phone: [phone]) 369-101905-08-2025 Plan of care note* Care Plan - Neelam Cody RN - 08/06/2024 9:58 AM EDT Problem: Drug Abuse/Detox Goal: Will have no detox symptoms and will verbalize plan for changing drug- related behavior Outcome: Progressing Problem: Potential for Substance Withdrawal Goal: Verbalizes signs/symptoms of withdrawal Outcome: Progressing Goal: Reports signs/symptoms of withdrawal Outcome: Progressing Goal: Free of withdrawal symptoms Outcome: Progressing [facility] [id number] History of Present illness Narrative* Rahsad Gastelum, - 08/06/2024 9:09 AM EDT Hospitalist Progress Note Subjective: Admit Date: 08/03/2024 PCP: Lynda Rasheed MD Room#: E4404/E4404 A Chief Complaint Patient presents with Rash On abdomen Back Pain Middle of back. No known injury. 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 Requesting detox Brief Hospital course: Maria De [...] ANIONGAP 12 7 LIVER PROFILE: Recent Labs 08/03/24 1738 08/06/24 0656 AST 42* 38* ALT 32 [...] med service is primary, CIWA protocol - continue PO Valtrex 1000 mg x 5 more days; continue gabapentin 800 mg 3 times daily x 5 more daysat discharge - should have full PFTs as [...] Extended Emergency Contact Information Primary Emergency Contact: Melvern Mobile Relation: Spouse Rashad Gastelum DO Division of Hospital Medicine Inpatient Medical Services/[place] * Rashad Gastelum DO - 08/05/2024 12:54 PM EDT Hospitalist Progress Note Subjective: Admit Date: 08/03/2024 PCP: Lynda Rasheed MD Room#: E4404/E4404 A Chief Complaint Patient presents with Rash On abdomen Back Pain Middle of back. No known injury. 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 Requesting detox Brief Hospital course: Maria De [...] pursued: - addiction med service is primary, [facility] protocol - stop Acyclovir, start PO Valtrex 1000 mg x6 more days; continue gabapentin 800 mg 3 times daily x6 more days at discharge - should have [...] DO Division of Hospital Medicine Inpatient Medical Services/[facility] * Robert Coats MD - 08/05/2024 9:41 AM EDT Images from the original note were not included. 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 No known injury. 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 Requesting detox Last 4 CIWA scores per [...] use disorder and has been admitted to [facility] multiple times in the past for similar presentations. Patient also has a history of leaving [facility] prior to his detox being completed. Patient states that at his last admission in May 2024 for detox, he was supposed to go to a rehabilitation facility in [place] but his uncle was going to pay for, and that for an unknown reason hisuncle chose not to pay for his rehabilitation, which prompted this most recent relapse. Patient reports consuming 6, 24 ounce beers with an average alcohol content of 5-6% alcohol. Patient reports this is an improvement from consuming beer that had a 10% alcohol content. IMS was consulted due to pain in his attributed to his current shingles infection, and was prescribed opioids for pain control.Patient was told that due to his current opioids that he is not a candidate for the Vivitrol injection at this time. During encounter today, patient was observed sitting comfortably in a chair, was dressed appropriately in hospital attire and appeared in no apparent distress. Patient was cooperative and answers allquestions appropriately. Patient reports adequate sleep last night and no alterations in his appetite. Patient denies nausea/vomiting or diarrhea/constipation. Patient reports persistent pain, however states that his current oxycodone medication has been adequately controlling his pain. Patient is denying SI/HI or AVH. Patient reports that his withdrawal symptoms are adequately controlled, and isrequesting a discharge tomorrow 08/06/2024. Patient has observed [...] Positive for tremors. Negative for dizziness, headaches, light- headedness, seizures and weakness. Psychiatric/Behavioral: Negative for depression, [...] to review: Daily CMP, daily vitals, CDT. Production Cook to coordinate care with: IMS. Will follow. Associated attestation - Jonatan Mckeon [...] with any additions or corrections listed below. * Jazlyn Huggins - 08/05/2024 8:08 AM EDT Nutrition rescreen completed. Patient assigned a level 1. * Arturo Parry RRT - 08/04/2024 4:15 PM EDT Patient sleeping comfortably, will attempt smoking cessation counseling at a later date. documented in this [facility]05-08-2025 Nurse Note* Evelyn Abad RN - 08/06/2024 6:36 AM EDT 2 attempts done for blood draw. Unable to retrieve blood. 2nd nurse to attempt. [facility] [id number] Nurse Note* Evelyn Abad RN - 08/06/2024 12:28 AM EDT Patient is up and steady, seen in group room. Pt is cooperative and med compliant. Pt denies SI/HI/AVH. Pt encouraged to notify staff for any questions and concerns. [facility] [id number] Nurse Note* Roma White LPN - 08/05/2024 6:28 PM EDT One episode of emesis noted shortly after administration of PRN oxycodone. Patient reports this is a normal occurrence for him-instructed to alert staff of any further potential episodes of emesis. PRN Zofran given at 1735-per patient, medication was effective. No further needs or concerns voiced. Safety maintained. [facility] [place] [facility] [id number] Nurse Note* Roma White LPN - 08/05/2024 4:11 PM EDT PRN ibuprofen given at 1341 as a first line defense for c/o 8/10 pain in R rib/back-patient reportspain is associated with his recent shingles Dx. Per patient, first line defense was ineffective-second line PRN oxycodone administered at 1609. Patient instructed to alert staff if medication is ineffective-will continually monitor for effective pain management. No further needs or concerns voiced. Safety maintained. [facility] [place] [facility] [id number] Group counseling note* Group Note - Aurora Camarena - 08/05/2024 12:12 PM EDT Department: [facility] ACTIVITIES THERAPY Group Topic: Recreation Therapy Group Date: 08/05/2024 Start Time: 1035 End Time: 1135 Facilitators: Aurora Camarean Number of Participants: 6 Group Name: Recreation Therapy Treatment Modality: Recreation Therapy Purpose: enhance coping skills and build self awareness, reconnect to leisure, support socialization Summary: Table Topics - To allow Patients the opportunity to explore self awareness and socialization through leisure engagement. Discussion to focus on their experience of participation, as well as,the process of reconnection to leisure interests. Name: Maria De Jesus Hogan Date of : 1965 MR: [id number] Appearance: Good eye contact Affect: Appropriate Behavior: Pleasant Alertness: Alert Speech: Appropriate Level/Quality of Participation: engaged Interactions with others: supportive Interventions utilized were Building rapport and engagement Patient's Response to Intervention: Patient came in toward the end of group and engaged in remaining portion of intervention. Patient was observed being interactive with peers and laughing during thegroup at times. Encouragement offered in utilizing healthy [...] with complication (HCC) Shingles (herpes zoster) polyneuropathy [id number] Nurse Note* Roma White LPN - 08/05/2024 9:22 AM EDT Patient seen in room at time of interview-presented with an appropriate affect. Mood is euthymic/bright. Patient up @patricio-gait is steady. Alert and oriented x4. Patient reports good appetite and sleep. Encouragement with ADLs provided. Social/pleasant/friendly with staff and peers- seen in attendance at group therapy. Cooperative with [...] concerns. Plan of care ongoing. Safety maintained. [facility] [place] [facility] [id number] Plan of care note* Care Plan - Roma White LPN - 08/05/2024 9:21 AM EDT Problem: Drug Abuse/Detox Goal: Will have no detox symptoms and will verbalize plan for changing drug- related behavior Outcome: Progressing Problem: Potential for Substance Withdrawal Goal: Verbalizes signs/symptoms of withdrawal Outcome: Progressing Goal: Reports signs/symptoms of withdrawal Outcome: Progressing Goal: Free of withdrawal symptoms Outcome: Progressing [facility] HospitalAhlbfc16-88-5117 Nurse Note* Evelyn Abad RN - 08/04/2024 10:48 PM EDT Patient is up and steady, seen in group room socializing. Pt is cooperative and med compliant. Pt has shingles on right flank and back. Pt denies SI/HI/AVH. Pt encouraged to notify staff for any questions and concerns. [facility] HospitalTzsbiu33-64-1172 Nurse Note* Lauren Irby RN - 08/04/2024 6:12 PM EDT Administered PRN Oxycodone for shingles pain. Will monitor effectiveness. [facility] HospitalDwqltk64-12-1853 NotePatient sleeping comfortably, will attempt smoking cessation counseling at a later date.[facility]05-06-2025 Note* Care Coordination - JEREMY Solis - 08/04/2024 1:06 PM EDT Patient scheduled for [facility] intake assessment on 08/13/2024 at 1:30 PM. All information included in patient's discharge paperwork. [facility] HospitalWzvwjy66-91-8744 Note* Care Coordination - JEREMY Solis - 08/04/2024 1:06 PM EDT Patient scheduled for [facility] IOP intake assessment on 08/13/2024 at 1:30 PM. All information included in patient's discharge paperwork. [facility] [id number] Nurse Note* Lauren Irby RN - 08/04/2024 10:32 AM EDT Patient withdrawn to room thus far. Independent [...] concerns. Will monitor for safety this shift. [facility] HospitalPygmdf32-85-9572 History and physical note* Robert Coats MD - 08/04/2024 9:57 AM EDT Images from the original note were not included. ADDICTION MEDICINE DETOX UNIT H&P Patient: Maria De Jesus Hogan Admit Date: 08/03/2024 Primary Care Physician: Lynda Rasheed MD __ HISTORY OF PRESENT ILLNESS Chief Complaint Patient presents with Rash On abdomen Back Pain Middle of back. No known injury. 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 year old male with a PMH of alcohol abuse, alcohol withdrawal, arthritis, cerebral artery occlusion with cerebral infarction, cerebrovascular disease, GERD, HTN, insomnia that was admitted for detox from alcohol. Patient has a long history of alcohol use disorder and has been admitted to the [facility] detox multiple times in the past for similar presentation, with last known admission to the detox unit on 06/02/2024 the patient left AMA on 06/04/2024. Maria De Jesus Hogan states that prior to presentation, he last admitted to [facility] detox in May. At the time of that admission, patient was looking to go to a rehab facility in [place] andat his uncle was supposed to be paying [...] with the patient regarding if he states hehas has troubles with alcohol, patient states that while he knows that he consumes too much alcoholhe believes that he has made significant improvements in how much alcohol he consumes over the course of the day despite consuming the same number of beers per day. Discussion was had with the patient regarding aftercare, patient states that he wants to go to [facility] on discharge, as he felt that it was helpful to him in the past. The topic of Vivitrol was also discussed with the patient, patient was told that due to being prescribed opioids for his current shingles infection that he was n ot a candidate for the Vivitrol injection at this time, patient expressed understanding. Patient was denying any further complaints at this time. On admission, a urine drug screen was negative, and a serum alcohol level was positive for alcohol with serum ethanol of 0.375 . SUBSTANCE USE HISTORY Brief Substance Use Narrative - Copied from OFF[facility] PRESSMAN note from 08/04/24. Patient reports that he [...] Patient does have extensive history of falls whileintoxicated. Patient denies any history of MAT engagement. Patient reports his longest period of sobriety was 6 months. Patient most recently only being able to maintain sobriety for 2 weeks. Patient has previous history of detox occurring on 06/02/2024 (AMA), 05/07/2024, 01/23/2024, 07/27/2023,07/08/2023, 02/08/2023, 05/20/2023 (medical), 10/25/2021, 02/15/2021 (left AMA), [...] CYST REMOVAL face EGD (HISTORICAL) 07/23/2022 Dr. Estrella[facility] SMALL INTESTINE SURGERY UPPER GASTROINTESTINAL ENDOSCOPY 09/27/2021 normal WISDOM TOOTH EXTRACTION Family History Family History Problem Relation Name Age of Onset Depression Sister Maria De Jesus Hogan Other ([id number]) Sister Maria De Jesus Hogan agoraphobia Arthritis Sister Maria De Jesus Hogan Cancer Mother Maria De Jesus Hogan colon rectal cancer; dx after age 50 Other ([id number]) Mother Maria De Jesus Hogan alcoholism Alcohol abuse Mother Maria De Jesus Hogan Stroke Mother Maria De Jesus Hogan Other ([id number]) Father Maria De Jesus Hogan h/o rheumatic fever, cardiac arrest due to bee sting Hypertension Father Maria De Jesus Hogan [employer] Tobacco Use: High Risk (08/03/2024) Patient History [...] 0 min Stress: Stress Concern Present (08/04/2024) [employer] [place] [employer] - Occupational Stress Questionnaire Feeling of Stress : To some extent Social Connections: Moderately Isolated (08/04/2024) Social Connection and Isolation Panel [NHANES] Frequency of Communication with Friends and Family: Twice a week Frequency of Social Gatherings with Friends and Family: Twice a week Attends Taoist Services: Never Active Member of Clubs or [...] Year: No Utilities: Not At Risk (08/04/2024) [facility] Utilities Threatened with loss of utilities: No Recent Concern: Utilities - At Risk (05/08/2024) [facility] Utilities Threatened with loss of utilities: [...] Electronically Signed On 08-04-2024 02:23:55 EDT by Anayacorie [employer] Recent Results (from the past 48 hours) [...] 364 ms QTC Interval 461 ms P [place] 35 degrees QRS [place] 80 degrees T Wave [place] 47 degrees RI Interval 154 ms Drug screen panel, emergency [...] CDT 08/04/24: pending Ordered given recidivistic behavior [id number] History and physical note* Robert Coats MD - 08/04/2024 9:57 AM EDT Images from the original note were not included. ADDICTION MEDICINE 4E DETOX UNIT H&P Patient: Maria De Jesus Hogan Admit Date: 08/03/2024 Primary Care Physician: Lynda Rasheed MD __ HISTORY OF PRESENT ILLNESS Chief Complaint Patient presents with Rash On abdomen Back Pain Middle of back. No known injury. 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 year old male with a PMH of alcohol abuse, alcohol withdrawal, arthritis, cerebral artery occlusion with cerebral infarction, cerebrovascular disease, GERD, HTN, insomnia that was admitted for detox from alcohol. Patient has a long history of alcohol use disorder and has been admitted to the [facility] multiple times in the past for similar presentation, with last known admission to the detox unit on 06/02/2024 the patient left A on 06/04/2024. Maria De Jesus Hogan states that prior to presentation, he last admitted to [facility] detox in May. At the time of that admission, [facility] [...] with the patient regarding if he states hehas has troubles with alcohol, patient states that while he knows that he consumes too much alcoholhe believes that he has made significant improvements in how much alcohol he consumes over the course of the day despite consuming the same number of beers per day. Discussion was had with the patient regarding aftercare, patient states that he wants to go to [facility] on discharge, as he felt that [...] currently drinking upwards of 9, 24 ounce Natradha Pereira beers daily. Patient reports his last drink [...] Patient does have extensive history of falls whileintoxicated. Patient denies any history of MAT engagement. Patient reports his longest period of sobriety was 6 months. Patient most recently only being able to maintain sobriety for 2 weeks. Patient has previous history of detox occurring on 06/02/2024 (AMA), 05/07/2024, 01/23/2024, 07/27/2023,07/08/2023, 02/08/2023, 05/20/2023 (medical), 10/25/2021, 02/15/2021 (left AMA), [...] treatment, uncomplicated (HCC) 06/02/2024 Alcohol withdrawal, uncomplicated ([facility]) 08/31/2019 Alcohol withdrawal, with unspecified complication (HCC) 10/02/2019 Alcohol withdrawal, with unspecified complication (HCC) 10/02/2019 Alcoholic intoxication without complication ([facility]/HCC) (HCC) 04/10/2024 Alcoholism ([facility]) ([facility]) Anxiety Apical lung nodule Arthritis Maria De Jesus Cerebral artery occlusion with cerebral infarction (HCC) Cerebrovascular disease Depression GERD (gastroesophageal reflux disease) Maria De Jesus Hypertension Insomnia Lung nodule Past Surgical History Past Surgical History: Procedure Laterality Date COLONOSCOPY 06/10/2020 EGD/Dr Madison/AMANDA CYST REMOVAL face EGD (HISTORICAL) 07/23/2022 Dr. [facility]rella[facility] SMALL INTESTINE SURGERY UPPER GASTROINTESTINAL ENDOSCOPY 09/27/2021 normal WISDOM TOOTH EXTRACTION Family History Family History Problem Relation Name Age of Onset Depression Sister Maria De Jesus Hogan Other ([id number]) Sister Maria De Jesus Hogan agoraphobia Arthritis Sister Maria De Jesus Hogan Cancer Mother Maria De Jesus Hogan colon rectal cancer; dx after age 50 Other ([id number]) Mother Maria De Jesus Hogan alcoholism Alcohol abuse Mother Maria De Jesus Hogan Stroke Mother Maria De Jesus Hogan Other ([id number]) Father Maria De Jesus Hogan h/o rheumatic fever, cardiac arrest due to bee sting Hypertension Father Maria De Jesus Hogan [employer] Tobacco Use: High Risk (08/03/2024) Patient History [...] 0 min Stress: Stress Concern Present (08/04/2024) [employer] [place] [employer] - Occupational Stress Questionnaire Feeling of Stress : To some extent Social Connections: Moderately Isolated (08/04/2024) Social Connection and Isolation Panel [NHANES] Frequency of Communication with Friends and Family: Twice a week Frequency of Social Gatherings with Friends and Family: Twice a week Attends Taoist Services: Never Active Member of Clubs or [...] Year: No Utilities: Not At Risk (08/04/2024) [facility] Utilities Threatened with loss of utilities: No Recent Concern: Utilities - At Risk (05/08/2024) [facility] Utilities Threatened with loss of utilities: [...] Electronically Signed On 08-04-2024 02:23:55 EDT by [employer] Recent Results (from the past 48 hours) [...] 364 ms QTC Interval 461 ms P [place] 35 degrees QRS [place] 80 degrees T Wave [place] 47 degrees RI Interval 154 ms Drug screen panel, emergency [...] Ordered given recidivistic behavior documented in this [facility]05-06-2025 Note* Care Coordination - JEREMY Solis - 08/04/2024 8:55 AM EDT Patient reports plans to engage in [facility]. Declining residential as an option at current time. [facility] will assist with scheduling patient intake appointment. [facility] [id number] Note* Care Coordination - JEREMY Solis - 08/04/2024 8:55 AM EDT Patient reports plans to engage in [facility]. Declining residential as an option at current time. [facility] will assist with scheduling patient intake appointment. [facility] [id number] Consult note* Camryn Copeland APRN - PARADI TENDER - 08/04/2024 8:24 AM EDT Hospital Medicine Consult Patient - Maria De Jesus Hogan, Age - 58 y.o. - 1965 Room Number - [id number] Consulting - Bryan Rodriguez MD Primary Care Physician - [id number] Date of Admission - 08/03/2024 4:56 PM [...] rash. Patient has findings consistent with shingles acrossthoracic dermatome extending to back, endorses burning sensation, pruritus. States pain so bad in the area he has not been able to sleep. Said rash has been present approximately 4 days. Has never had shingles in the past. Denies any other symptoms of acute illness including no shortness of breath,chest pain, nausea, vomiting, fever or chills. Past [...] CYST REMOVAL face EGD (HISTORICAL) 07/23/2022 Dr. [facility]rella[facility] SMALL INTESTINE SURGERY UPPER GASTROINTESTINAL ENDOSCOPY 09/27/2021 normal WISDOM TOOTH EXTRACTION Medications: Scheduled PRN diazePAM, 10 mg, Oral, q6h folic acid, 1 mg, Oral, Daily gabapentin, 600 mg, Oral, TID Lidocaine, 1 patch, TransDERmal, Daily pantoprazole, 40 mg, Oral, Daily thiamine, 100 mg, Oral, Daily PRN medications: albuterol, aluminum & magnesium hydroxide-simethicone, cloNIDine, dicyclomine,hydrOXYzine pamoate, ibuprofen, LORazepam OR LORazepam OR LORazepam OR LORazepam ORLORazepam OR LORazepam OR LORazepam OR LORazepam, nicotine [...] 0 min Stress: Stress Concern Present (08/04/2024) [employer] [place] [employer] - Occupational Stress Questionnaire Feeling of Stress : To some extent Social Connections: Moderately Isolated (08/04/2024) Social Connection and Isolation Panel [NHANES] Frequency of Communication with Friends and Family: Twice a week Frequency of Social Gatherings with Friends and Family: Twice a week Attends Taoist Services: Never Active Member of Clubs or [...] Depression Sister Maria De Jesus Hogan Other ([id number]) Sister Maria De Jesus Hogan agoraphobia Arthritis Sister Maria De Jesus Hogan Cancer Mother Maria De Jesus Hogan colon rectal cancer; dx after age 50 Other ([id number]) Mother Maria De Jesus Hogan alcoholism Alcohol abuse Mother Maria De Jesus Hogan Stroke Mother Maria De Jesus Hogan Other ([id number]) Father Maria De Jesus Hogan h/o rheumatic [...] 364 ms QTC Interval 461 ms P [place] 35 degrees QRS [place] 80 degrees T Wave [place] 47 degrees RI Interval 154 ms Drug screen panel, emergency [...] Primary Emergency Contact: Samira Mobile Relation: Spouse Camryn Rosen JUAN Copeland CNP Division of Hospitalist Medicine [facility] Cosigned by Dawn Sanchez MD at 08/04/2024 11:16 AM EDT Associated attestation - Danw Sanchez MD - 08/04/2024 11:16 AM EDT Hospitalist Progress Note 08/04/[phone]: Please page me ([phone]) for patient care issues. [phone]: Please page [facility] night Hospitalist for any issues. Subjective: Admit Date: 08/03/2024 PCP: Lynda Rasheed MD Room#: E4404/[id number] A I have evaluated the patient and [...] cerebral artery occlusion with infarct, presented to [facility] on 08/03 for alcohol detox at [...] Dawn Sanchez MD Division of Hospitalist Medicine [facility] 11:08 AM 08/04/24 [facility]: 1(249) 245-443605-06-2025 Consult note* Camryn Copeland, JUAN - PARADI TENDER - 08/04/2024 8:24 AM EDT Hospital Medicine Consult Patient - Maria De Jesus Hogan, Age - 58 y.o. - 1965 Room Number - [id number] Consulting - Bryan Rodriguez MD Primary Care Physician - Lynda [id number] Date of Admission - 08/03/2024 4:56 PM [...] rash. Patient has findings consistent with shingles acrossthoracic dermatome extending to back, endorses burning sensation, pruritus. States pain so bad in the area he has not been able to sleep. Said rash has been present approximately 4 days. Has never had shingles in the past. Denies any other symptoms of acute illness including no shortness of breath,chest pain, nausea, vomiting, fever or chills. Past [...] CYST REMOVAL face EGD (HISTORICAL) 07/23/2022 Dr. Estrella[facility] SMALL INTESTINE SURGERY UPPER GASTROINTESTINAL ENDOSCOPY 09/27/2021 normal WISDOM TOOTH EXTRACTION Medications: Scheduled PRN diazePAM, 10 mg, Oral, q6h folic acid, 1 mg, Oral, Daily gabapentin, 600 mg, Oral, TID Lidocaine, 1 patch, TransDERmal, Daily pantoprazole, 40 mg, Oral, Daily thiamine, 100 mg, Oral, Daily PRN medications: albuterol, aluminum & magnesium hydroxide-simethicone, cloNIDine, dicyclomine,hydrOXYzine pamoate, ibuprofen, LORazepam OR LORazepam OR LORazepam OR LORazepam ORLORazepam OR LORazepam OR LORazepam OR LORazepam, nicotine [...] 0 min Stress: Stress Concern Present (08/04/2024) [employer] [place] [employer] - Occupational Stress Questionnaire Feeling of Stress : To some extent Social Connections: Moderately Isolated (08/04/2024) Social Connection and Isolation Panel [NHANES] Frequency of Communication with Friends and Family: Twice a week Frequency of Social Gatherings with Friends and Family: Twice a week Attends Taoist Services: Never Active Member of Clubs or [...] Depression Sister Maria De Jesus Hogan Other ([id number]) Sister Maria De Jesus Hogan agoraphobia Arthritis Sister Maria De Jesus Hogan Cancer Mother Maria De Jesus Hogan colon rectal cancer; dx after age 50 Other ([id number]) Mother Maria De Jesus Hogan alcoholism Alcohol abuse Mother Maria De Jesus Hogan Stroke Mother Maria De Jesus Hogan Other ([id number]) Father Maria De Jesus Hogan h/o rheumatic [...] 364 ms QTC Interval 461 ms P [place] 35 degrees QRS [place] 80 degrees T Wave [place] 47 degrees RI Interval 154 ms Drug screen panel, emergency [...] Information Primary Emergency Contact: Mobile Relation: Spouse JUAN Baker CNP Division of Hospitalist Medicine [employer] Cosigned by Dawn Sanchez MD at 08/04/2024 11:16 AM EDT Associated attestation - Dawn Sanchez MD - 08/04/2024 11:16 AM EDT Hospitalist Progress Note 08/04/[id number]: Please page me ([phone]) for patient care issues. [phone]: Please page [facility] night Hospitalist for any issues. Subjective: Admit Date: 08/03/2024 PCP: Lynda Rasheed MD Room#: [id number]/[id number] A I have evaluated the patient and [...] cerebral artery occlusion with infarct, presented to [facility] on 08/03 for alcohol detox at [...] Dawn Sanchez MD Division of Hospitalist Medicine [employer] 11:08 AM 08/04/24 documented in this [facility]05-06-2025 Hospital Discharge instructions* Discharge Instr - Other Orders* JEREMY Solis - 08/04/2024 8:01 AM EDT After detox you should abstain from any use of any mood altering chemical Appointment with your primary care physician should be scheduled It is highly recommended that you attend post hospital treatment Please read the information give to you - Intro to 12 step programs Call the National Suicide Prevention Hotline if needed at: 1-882-244-SIJG (6813) Please call the following number should you have questions regarding your discharge or aftercare appointments: [facility] * Attachments The following attachments cannot be sent through Care Everywhere. * Alcohol Use Disorder Discharge Instructions (Mongolian) documented in this [facility]05-06-2025 Note* Care Coordination - JEREMY Solis - 08/04/2024 8:00 AM EDT Behavioral Health Psycho-Social Assessment (Social Work) Date: 08/04/2024 Patient Name: Maria De Jesus Hogan : 1965 Identifying Information: Patient is a 58-year-old male mated to [facility] for detox and alcohol. Patient is well-known to addiction medicine team. Previously on the unit on 06/02/2024 but left [facility] 06/04/2024. Reports that his family members had [...] Patient has history of noncompliance with treatment m edications Patient has history of psychiatric admission. Reports admissions were due to suicidal ideation while intoxicated. Denies history of recent or past history suicide attempts. Patient denies current SI/HI/AVH. Patient does have an extensive history of passive SI secondary tointoxication. Patient denies plan, intent, or method but [...] Patient does have extensive history of falls whileintoxicated. Patient denies any history of MAT engagement. Patient reports his longest period of sobriety was 6 months. Patient most recently only being able to maintain sobriety for 2 weeks. Patient has previous history of detox occurring on 06/02/2024 (AMA), 05/07/2024, 01/23/2024, 07/27/2023,07/08/2023, 02/08/2023, 05/20/2023 (medical), 10/25/2021, 02/15/2021 (left AMA), [...] poor nutrition and sleep secondary to his gomez bstance use. Legal/Trauma/ History: Patient denies any current legal issues. Patient reports past legal history of child support violations. Patient denies any history of childhood abuse. Patient does report however his father when he was 11 years old which was a traumatic incident to him. Patient denies any history of trauma abuse as an adult. Patient denies any history Orbisonia or status. Family Constellation/Childhood History: Patient reports that he is currently to his living in [facility]. Patient reports that he has 3 biological children and 4 stepchildren. Patient reports that his father in his 11 years old. Patient did not report his mother is stillalive currently. Patient was born and raised in [place], [place] by his mother and father. He reports that his father when he was 11 years old, and this was traumatic for him. Patient reports that he was raisedprimarily by his mother for the remainder of his childhood. He denies childhood abuse. Education/Work: Patient reports that he graduated high school. 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 Patient denies SSI/SSD. Cultural/Spirituality/Leisure: Patient denies any cultural needs or concerns at the current time. Patient denies identify any sikhism preference. It is unknown if patient is [...] plan, intent, or method but reports more increasedfeelings of depression and sadness.) Activating Events (Recent): Recent loss(es) or other significant negative event(s) (legal, financial, relationship, etc.) Describe:: Ongoing struggles with substance use Treatment History: Previous psychiatric diagnoses and treatments, Non-compliant with treatment, [facility] ([facility] depression and anxiety. No [...] Plan: Current plan is for patient stabilization. OFFSET PRESSMAN patient will continue work together to establish appropriate aftercare plan based on patient sobriety, needs, and resource available to local community. Patient encouraged to engage in all activities that are offered to them while they are on the unit.Patient report needing additional current time. Patient encouraged to seek out [facility] unit staff should they identify any additional [...] to contact the dictating provider for clarification. [id number] Note* Care Coordination - JEREMY Solis - 08/04/2024 8:00 AM EDT Behavioral Health Psycho-Social Assessment (Social Work) Date: 08/04/2024 Patient Name: Maria De Jesus Hogan : 1965 Identifying Information: Patient is a 58-year-old male mated to [facility] for detox and alcohol. Patient is well-known to addiction medicine team. Previously on the unit on 06/02/2024 but left [facility] 06/04/2024. Reports that his family members had [...] Patient has history of noncompliance with treatment m edications Patient has history of psychiatric admission. Reports admissions were due to suicidal ideation while intoxicated. Denies history of recent or past history suicide attempts. Patient denies current SI/HI/AVH. Patient does have an extensive history of passive SI secondary tointoxication. Patient denies plan, intent, or method but [...] Patient does have extensive history of falls whileintoxicated. Patient denies any history of MAT engagement. Patient reports his longest period of sobriety was 6 months. Patient most recently only being able to maintain sobriety for 2 weeks. Patient has previous history of detox occurring on 06/02/2024 (AMA), 05/07/2024, 01/23/2024, 07/27/2023,07/08/2023, 02/08/2023, 05/20/2023 (medical), 10/25/2021, 02/15/2021 (left AMA), [...] poor nutrition and sleep secondary to his gomez bstance use. Legal/Trauma/ History: Patient denies any current legal issues. Patient reports past legal history of child support violations. Patient denies any history of childhood abuse. Patient does report however his father when he was 11 years old which was a traumatic incident to him. Patient denies any history of trauma abuse as an adult. Patient denies any history Orbisonia or status. Family Constellation/Childhood History: Patient reports that he is currently to his living in [facility]. Patient reports that he has 3 biological children and 4 stepchildren. Patient reports that his father in his 11 years old. Patient did not report his mother is stillalive currently. Patient was born and raised in [place], [place] by his mother and father. He reports that his father when he was 11 years old, and this was traumatic for him. Patient reports that he was raisedprimarily by his mother for the remainder of his childhood. He denies childhood abuse. Education/Work: Patient reports that he graduated high school. 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 Patient denies SSI/SSD. Cultural/Spirituality/Leisure: Patient denies any cultural needs or concerns at the current time. Patient denies identify any sikhism preference. It is unknown if patient is [...] plan, intent, or method but reports more increasedfeelings of depression and sadness.) Activating Events (Recent): Recent loss(es) or other significant negative event(s) (legal, financial, relationship, etc.) Describe:: Ongoing struggles with substance use Treatment History: Previous psychiatric diagnoses and treatments, Non-compliant with treatment, [facility] ([facility] depression and anxiety. No [...] Plan: Current plan is for patient stabilization. [facility]MAN patient will continue work together to establish appropriate aftercare plan based on patient sobriety, needs, and resource available to local community. Patient encouraged to engage in all activities that are offered to them while they are on the unit.Patient report needing additional current time. Patient encouraged to seek out [facility] unit staff should they identify any additional [...] to contact the dictating provider for clarification. [facility] HospitalDgxsix90-57-0979 Plan of care note* Care Plan - Kristina Hampton RN - 08/04/2024 6:50 AM EDT Care plan reviewed [facility] HospitalWcmlfv73-26-5429 Nurse Note* Kristina Hampton RN - 08/04/2024 12:50 AM EDT Pt arrived from ER via cart accompanied [...] in condition. Will monitor pt for safety. [facility] HospitalFxwred80-21-8055 Emergency department Note* Jacqueline Richardson RN - 08/04/2024 12:16 AM EDT Transport here for pt. [facility] HospitalAdcocd52-31-4975 Emergency department Note* Jacqueline Richardson RN - 08/04/2024 12:16 AM EDT Transport here for pt. * Jacqueline Richardson RN - 08/03/2024 9:09 PM EDT Called report to RN at [facility]. * Dulce Nugent RN - 08/03/2024 5:06 PM EDT Patient here for a rash on his right rib area around to his back. Burning and painful. Patient alsowants to be in rehab for his drinking his last drink was today and he drinks at least 8 tall boysper day. * Debby Mckoy PA-C - 08/03/2024 4:54 PM EDT Images from the original note were not included. EMERGENCY DEPARTMENT ENCOUNTER Pt Name: Maria De Jesus Hogan Birthdate 1965 Date of evaluation: 08/03/2024 ED Provider: Debby Mckoy PA-C CHIEF COMPLAINT Chief Complaint Patient presents with Rash On abdomen Back Pain Middle of back. No known injury. 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 Requesting detox HISTORY OF PRESENT ILLNESS (Location/Symptom, Timing/Onset, Context/Setting, Quality, Duration, Modifying Factors, Severity) Note limiting factors. I wore appropriate PPE for the entirety of this encounter. HPI Maria De Jesus Hogan is a 58 y.o. male who presents to the emergency department his requestingdetox from alcohol. Patient with longstanding history of alcohol use disorder. Has been admitted too detox unit in the past. Reports after his last admission, he was started on Vivitrol. Last injection was on 4-3. Reports after that he did have approximately 2 weeks in which he was alcohol free,but then started to drink again daily. Urine [...] CYST REMOVAL face EGD (HISTORICAL) 07/23/2022 Dr. Estrella-[facility] SMALL INTESTINE SURGERY UPPER GASTROINTESTINAL ENDOSCOPY 09/27/2021 [...] Depression Sister Maria De Jesus Hogan Other ([id number]) Sister Maria De Jesus Hogan agoraphobia Arthritis Sister Maria De Jesus Hogan Cancer Mother Maria De Jesus Hogan colon rectal cancer; dx after age 50 Other ([id number]) Mother Maria De Jesus Hogan alcoholism Alcohol abuse Mother Maria De Jesus Hogan Stroke Mother Maria De Jesus Hogan Other ([id number]) Father Maria De Jesus Hogan h/o rheumatic [...] 0 min Stress: Stress Concern Present (06/03/2024) [employer] [place] [employer] - Occupational Stress Questionnaire Feeling of Stress : To some extent Social Connections: Socially Isolated (06/04/2024) Social Connection and Isolation Panel [NHANES] Frequency of Communication with Friends and Family: Never Frequency of Social Gatherings with Friends and Family: Never Attends Taoist Services: Never Active Member of Clubs or [...] Response: Oriented Best Motor Response: Follows commands [place] Coma Scale Score: 15 PHYSICAL EXAM ED [...] Abnormal ETHANOL IN SER/PLAS 375 (*) Narrative: 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 NOTE: This result is for medical treatment only. Analysis performed using non- forensic procedures. SARS-COV-2 ANTIGEN - Normal SARS-CoV-2 Antigen [...] If confirmation is needed, request confirmation under separateorder. All other labs were within normal range [...] dose of phenobarbital prior to transfer to [facility]. Discussed plans for admission with patient and his , they were comfortable and agreeable plans to be admitted at [facility]. Patient left [facility] in stable condition with stable vitals. [...] are any questions or concerns please feel freeto contact the dictating provider for clarification.) Debby Mckoy PA-C (electronically signed) Emergency Medicine Provider Debby Mckoy PA-C 08/03/241920 Cosigned by Matthew Demarco DO at 08/03/2024 9:11 PM EDT * Matthew Demarco DO - 08/03/2024 4:54 PM EDT Emergency Department Encounter [facility] DET[facility] [...] CT imaging, no acute indications. Patient stable. Nohx of trauma. Generalized complaints Independently reviewed external [...] the ED: improving (Consults) Discussed case with sales representative consultant, detox. They agree with current work [...] are any questions or concerns please feel freeto contact the dictating provider for clarification.) Matthew Demarco DO [employer] Matthew Demarco DO 08/05/24 0826 documented in this [facility]05-05-2025 Emergency department Note* Jacqueline Richardson RN - 08/03/2024 9:09 PM EDT Called report to RN at [facility]. [facility] HospitalDjqrwb59-70-5504 Emergency department Note* Dulce Nugent RN - 08/03/2024 5:06 PM EDT Patient here for a rash on his right rib area around to his back. Burning and painful. Patient alsowants to be in rehab for his drinking his last drink was today and he drinks at least 8 tall boysper day. [facility] HospitalEjyvgm47-59-5758 Physician Emergency department Note* Debby Mckoy PA-C - 08/03/2024 4:54 PM EDT Images from the original note were not included. EMERGENCY DEPARTMENT ENCOUNTER Pt Name: Maria De Jesus Hogan Birthdate 1965 Date of evaluation: 08/03/2024 ED Provider: Debby Mckoy PA-C CHIEF COMPLAINT Chief Complaint Patient presents with Rash On abdomen Back Pain Middle of back. No known injury. 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 Requesting detox HISTORY OF PRESENT ILLNESS (Location/Symptom, Timing/Onset, Context/Setting, Quality, Duration, Modifying Factors, Severity) Note limiting factors. I wore appropriate PPE for the entirety of this encounter. HPI Maria De Jesus oHgan is a 58 y.o. male who presents to the emergency department his requestingdetox from alcohol. Patient with longstanding history of alcohol use disorder. Has been admitted too detox unit in the past. Reports after his last admission, he was started on Vivitrol. Last injection was on 4-3. Reports after that he did have approximately 2 weeks in which he was alcohol free,but then started to drink again daily. Urine [...] intoxication without complication (CMS/HCC) (HCC) 04/10/2024 Alcoholism ([facility]) (HCC) Anxiety Apical lung nodule Arthritis Maria De Jesus Cerebral artery occlusion with cerebral infarction (HCC) Cerebrovascular disease Depression GERD (gastroesophageal reflux disease) Maria De Jesus Hypertension Insomnia Lung nodule SURGICAL HISTORY Past Surgical History: Procedure Laterality Date COLONOSCOPY 06/10/2020 EGD/Dr Madison/AMANDA CYST REMOVAL face EGD (HISTORICAL) 07/23/2022 Dr. Estrella[facility] SMALL INTESTINE SURGERY UPPER GASTROINTESTINAL ENDOSCOPY 09/27/2021 [...] Depression Sister Maria De Jesus Hogan Other ([id number]) Sister Maria De Jesus Hogan agoraphobia Arthritis Sister Maria De Jesus Hogan Cancer Mother Maria De Jesus Hogan colon rectal cancer; dx after age 50 Other ([id number]) Mother Maria De Jesus Hogan alcoholism Alcohol abuse Mother Maria De Jesus Hogan Stroke Mother Maria De Jesus Hogan Other ([id number]) Father Maria De Jesus Hogan h/o rheumatic [...] 0 min Stress: Stress Concern Present (06/03/2024) [employer] [place] [employer] - Occupational Stress Questionnaire Feeling of Stress : To some extent Social Connections: Socially Isolated (06/04/2024) Social Connection and Isolation Panel [NHANES] Frequency of Communication with Friends and Family: Never Frequency of Social Gatherings with Friends and Family: Never Attends Taoist Services: Never Active Member of Clubs or [...] Homeless in the Last Year: No SCREENINGS [place] Coma Scale Best Eye Response: Spontaneous Best [...] Abnormal ETHANOL IN SER/PLAS 375 (*) Narrative: 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 NOTE: This result is for medical treatment only. Analysis performed using non- forensic procedures. SARS-COV-2 ANTIGEN - Normal SARS-CoV-2 Antigen [...] If confirmation is needed, request confirmation under separateorder. All other labs were within normal range [...] patch (1 patch TransDERmal Medication Applied 08/03/24 9705) gabapentin (Neurontin) capsule 600 mg (has no [...] dose of phenobarbital prior to transfer to [facility]. Discussed plans for admission with patient and his , they were comfortable and agreeable plans to be admitted at [facility]. Patient left [place] ER in stable condition with stable vitals. [...] are any questions or concerns please feel freeto contact the dictating provider for clarification.) Debby Mckoy PA-C (electronically signed) Emergency Medicine Provider Debby Mckoy PA-C 08/03/241920 Cosigned by Matthew Demarco DO at 08/03/2024 9:11 PM EDT [facility] HospitalDzfyjq90-56-3543 Physician Emergency department Note* Matthew Demarco DO - 08/03/2024 4:54 PM EDT Emergency Department Encounter [facility] DETOX [...] CT imaging, no acute indications. Patient stable. Nohx of trauma. Generalized complaints Independently reviewed external [...] the ED: improving (Consults) Discussed case with sales representative consultant, detox. They agree with current work [...] are any questions or concerns please feel freeto contact the dictating provider for clarification.) Matthew Demarco DO [employer] Matthew Demarco DO 08/05/24 0826 [facility] Phone: [phone] 288-505804-17-2025 Telephone encounter Note* Telephone Encounter - [facility] - 07/16/2024 10:13 AM EDT Attempt #3 LVM for patient to call our office to schedule follow up to review CT results. [facility] HospitalAjgcrp11-67-7228 Miscellaneous Notes* Telephone Encounter - [facility] - 07/16/2024 10:13 AM EDT Attempt #3 LVM for patient to call our office to schedule follow up to review CT results. * Telephone Encounter - [facility] - 06/25/2024 9:11 AM EDT LVM for patient to call our office to reschedule missed appointment with ML. Will send [employer] Document Management software message as well. documented in this [facility]04-02-2025 Emergency department Note* Goyo Melara MD - 07/01/2024 6:55 PM EDT EMERGENCY DEPARTMENT ENCOUNTER Pt Name: Maria De [...] to the emergency department after dropping a dresseron his foot/toe, pain with ambulation and with [...] CYST REMOVAL face EGD (HISTORICAL) 07/23/2022 Dr. Estrella[facility] SMALL INTESTINE SURGERY UPPER GASTROINTESTINAL ENDOSCOPY 09/27/2021 [...] Depression Sister Maria De Jesus Hogan Other ([phone]) Sister Maria De Jesus Hogan agoraphobia Arthritis Sister Maria De Jesus Hogan Cancer Mother Maria De Jesus Hogan colon rectal cancer; dx after age 50 Other ([id number]) Mother Maria De Jesus Hogan alcoholism Alcohol abuse Mother Maria De Jesus Hogan Stroke Mother Maria De Jesus Hogan Other ([id number]) Father Maria De Jesus Hogan h/o rheumatic [...] 0 min Stress: Stress Concern Present (06/03/2024) [employer] [place] [employer] - Occupational Stress Questionnaire Feeling of Stress : To some extent Social Connections: Socially Isolated (06/04/2024) Social Connection and Isolation Panel [NHANES] Frequency of Communication with Friends and Family: Never Frequency of Social Gatherings with Friends and Family: Never Attends Taoist Services: Never Active Member of Clubs or [...] drained as it was about ready to burst.Wrapped with Band-Aid, x-ray shows no fracture, discharged [...] PM PATIENT REFERRED TO: Lynda Rasheed MD [address] [place] [address] [address] [facility] [phone] As needed DISCHARGE MEDICATIONS: New Prescriptions No medications on file (Comment: Please note this report has been produced using speech recognition software and may contain errors related to that system including errors in grammar, punctuation, and spelling, as well as words and phrases that may be inappropriate. If there are any questions or concerns please feel freeto contact the dictating provider for clarification.) Goyo Melara MD (electronically signed) Emergency Medicine Provider Goyo Melara MD 07/01/242048 documented in this [facility]04-02-2025 Physician Emergency department Note* Goyo Melara MD - 07/01/2024 6:55 PM EDT EMERGENCY DEPARTMENT ENCOUNTER Pt Name: Maria De [...] to the emergency department after dropping a dresseron his foot/toe, pain with ambulation and with [...] CYST REMOVAL face EGD (HISTORICAL) 07/23/2022 Dr. Estrella[facility] SMALL INTESTINE SURGERY UPPER GASTROINTESTINAL ENDOSCOPY 09/27/2021 [...] Depression Sister Maria De Jesus Hogan Other ([id number]) Sister Maria De Jesus Hogan agoraphobia Arthritis Sister Maria De Jesus Hogan Cancer Mother Maria De Jesus Hogan colon rectal cancer; dx after age 50 Other ([id number]) Mother Maria De Jesus Hogan alcoholism Alcohol abuse Mother Maria De Jesus Hogan Stroke Mother Maria De Jesus Hogan Other ([id number]) Father Maria De Jesus Hogan h/o rheumatic [...] 0 min Stress: Stress Concern Present (06/03/2024) [employer] [place] [employer] - Occupational Stress Questionnaire Feeling of Stress : To some extent Social Connections: Socially Isolated (06/04/2024) Social Connection and Isolation Panel [NHANES] Frequency of Communication with Friends and Family: Never Frequency of Social Gatherings with Friends and Family: Never Attends Taoist Services: Never Active Member of Clubs or [...] drained as it was about ready to burst.Wrapped with Band-Aid, x-ray shows no fracture, discharged [...] PM PATIENT REFERRED TO: Lynda Rasheed MD [address] [place] [address] [address] [facility] [address] As needed DISCHARGE MEDICATIONS: New Prescriptions No medications on file (Comment: Please note this report has been produced using speech recognition software and may contain errors related to that system including errors in grammar, punctuation, and spelling, as well as words and phrases that may be inappropriate. If there are any questions or concerns please feel freeto contact the dictating provider for clarification.) Goyo Melara MD (electronically signed) Emergency Medicine Provider Goyo Melara MD 07/01/242048 [facility] HospitalXfeqvm37-63-5785 Telephone encounter Note* Telephone Encounter - Jennifer Goins 06/25/2024 9:11 AM EDT LVM for patient to call our office to reschedule missed appointment with ML. Will send [employer] message as well. [facility] HospitalKicheg76-76-2168 Telephone encounter Note* Telephone Encounter - Tea Reno LPN - 06/23/2024 9:44 AM EDT Recent Visits Date Type Provider Dept 06/16/24 Office Visit Lynda Rasheed MD [facility] 05[facility]20[facility] Office Visit Lynda Rasheed MD [facility] Showing recent visits within past 365 [...] recent labs completed in chart? N/A None [facility] HospitalEevwss16-50-9326 Miscellaneous Notes* Telephone Encounter - Tea Reno LPN - 06/23/2024 9:44 AM EDT Recent Visits Date Type Provider Dept 06/16/24 Office Visit Lynda Rasheed MD [facility] 05/20/24 [facility] Office Visit Lynda Rasheed MD [facility] Showing recent visits within past 365 [...] in chart? N/A None documented in this encounterSNewark HospitalGsxtxw39-34-0198 Telephone encounter Note* Telephone Encounter - Tea Reno LPN - 06/23/2024 9:42 AM EDT Recent Visits Date Type Provider Dept 06/16/24 Office Visit Lynda Rasheed MD [facility] 05/20/24 Office Visit Lynda Rasheed MD [facility] 02/05/24 Office Visit Lynda Rasheed MD [facility] Showing recent visits within past 365 [...] recent labs completed in chart? N/A None [facility] HospitalFljjac81-14-3621 Miscellaneous Notes* Telephone Encounter - Tea Reno LPN - 06/23/2024 9:42 AM EDT Recent Visits Date Type Provider Dept 06/16/24 Office Visit Lynda Rasheed MD [facility] 05/20/24 Office Visit Lynda Rasheed MD [facility] 02/05/24 Office Visit Lynda Rasheed MD [facility] Showing recent visits within past 365 [...] in chart? N/A None documented in this [facility]03-18-2025 History of Present illness Narrative* Lynda Rasheed MD - 06/16/2024 2:00 PM EDT Images from the original note were not included. [facility] - [address] [facility] [address] Dept: [phone] Dept Loc: [phone] Reason for Visit: Follow-up Assessment and Plan [...] Severe alcohol use disorder (HCC) follow-up with electronic commerce specialist in #6 lumbar back pain. Continue [...] hospital on some occasions for alcohol abuse. Hehas tried the electronic commerce specialist outpatient program. He states and currently he is not drinking. 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 Estrella[facility] SMALL INTESTINE SURGERY UPPER GASTROINTESTINAL ENDOSCOPY 09/27/2021 normal WISDOM TOOTH EXTRACTION Family History Problem Relation Name Age of Onset Depression Sister Maria De Jesus Hogan Other ([id number]) Sister Maria De Jesus Hogan agoraphobia Arthritis Sister Maria De Jesus Hogan Cancer Mother Maria De Jesus Hogan colon rectal cancer; dx after age 50 Other ([id number]) Mother Maria De Jesus Hogan alcoholism Alcohol abuse Mother Maria De Jesus Hogan Stroke Mother Maria De Jesus Hogan Other ([phone]) Father Maria De Jesus Hogan h/o rheumatic [...] (4 - 2023- season) 2023 Depression Monitoring 12/05/2024 Lung Cancer [...] DE JESUS HOGAN : 1965 Exam Date/Time: 06/11/2024 16:05 Procedure: CT CHEST [...] EDT Lynda Rasheed MD documented in this [facility]03-10-2025 Telephone encounter Note* Telephone Encounter - Anat Esquivel RN - 06/08/2024 2:39 PM EDT We have been unable to reach your patient to schedule their testing. Test Name: US abdomen complete 1st attempt, via [employer] Document Management software message, 05/23/24 JS 2nd attempt called LVM. TE to office. sent [employer] software message. 06/08/24 LR [facility] HospitalSdsxti39-22-1928 Miscellaneous Notes* Telephone Encounter - Anat Esquivel RN - 06/08/2024 2:39 PM EDT We have been unable to reach your patient to schedule their testing. Test Name: US abdomen complete 1st attempt, via [employer] Document Management software message, 05/23/24 JS 2nd attempt called LVM. TE to office. sent [employer] software message. 06/08/24 LR documented in this [facility]03-07-2025 Telephone encounter Note* Telephone Encounter - Hung Shin LPN - 06/05/2024 8:54 AM EST LVM [facility] HospitalArhato26-07-5299 Miscellaneous Notes* Telephone Encounter - Hung Shin LPN - 06/05/2024 8:54 AM EST LVM * Telephone Encounter - Tosha Lopez - 06/03/2024 1:15 PM EST LVM for pt to call office to reschedule CT scan and follow up kavon Kristin Lara. documented in this encounterSNewark HospitalKyrfvw10-68-4165 Note* Care Coordination - JEREMY Solis - 06/04/2024 3:11 PM EST Social work consult placed for patient. Notified areas of S NAHOMY noted at current time. Social work consult is cleared. [facility] HospitalChmpel18-66-7902 Note* Care Coordination - JEREMY Solis - 06/04/2024 3:11 PM EST Social work consult placed for patient. Notified areas of S NAHOMY noted at current time. Social work consult is cleared. [facility] HospitalWwpplu35-44-9972 Miscellaneous Notes* Care Coordination - JEREMY Solis - 06/04/2024 3:11 PM EST Social work consult placed for patient. Notified areas of S NAHOMY noted at current time. Social work consult is cleared. * Group Note - Aurora Camarena - 06/03/2024 12:24 PM EST Department: [facility] Group Topic: Recreation Therapy [...] Jesus Hogan Date of : 1965 MR: [id number] Appearance: Good eye contact Affect: Appropriate Behavior: [...] Alcohol withdrawal with inpatient treatment, uncomplicated (HCC) * Care Coordination - JEREMY Solis - 06/03/2024 11:44 AM EST Behavioral Health Psycho-Social Assessment (Social Work) Date: [...] Patient has history of noncompliance with treatment m edications Patient has history of psychiatric admission. Reports admissions were due to suicidal ideation while intoxicated. Denies history of recent or past history suicide attempts. Patient denies current SI/HI/AVH. Patient does have an extensive history of passive SI secondary tointoxication. Patient denies plan, intent, or method but [...] Patient does have extensive history of falls whileintoxicated. Patient denies any history of MAT engagement. [...] as an adult. Patient denies any history Orbisonia or status. Family Constellation/Childhood History: Patient reports that he is currently to his living in [facility]. Patient reports that he has 3 biological children and 4 stepchildren. Patient reports that his father in his 11 years old. Patient did not report his mother is stillalive currently. Patient was born and raised in [place], [place] by his mother and father. He reports that his father when he was 11 years old, and this was traumatic for him. Patient reports that he was raisedprimarily by his mother for the remainder of his childhood. He denies childhood abuse. Education/Work: Patient reports that he graduated high school. 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 Patient denies SSI/SSD. Cultural/Spirituality/Leisure: Patient denies any cultural needs or concerns at the current time. Patient denies identify any sikhism preference. It is unknown if patient is [...] plan, intent, or method but reports more increasedfeelings of depression and sadness.) Activating Events (Recent): [...] abuse or dependence, Hopelessness, Agitation or severe anxiety,Major depressive episode, Perceived burden on family or [...] to them while they are on the unit.Patient report needing additional current time. Patient encouraged to seek out [facility] unit staff should they identify any additional [...] dictating provider for clarification. documented in this [facility]03-06-2025 [facility] 06-04-2024 Hospital course Narrative* Jonatan Mckeon MD - 06/04/2024 3:08 PM EST Images from the original note were not included. ADDICTION MEDICINE 4E DETOX UNIT DISCHARGE SUMMARY __ Patient MRN Janis Hogan [id number] 1965 Admit Date Discharge Date 06/02/2024 06/04/2024 - patient left AMA Primary Care Physician Lynda Rasheed MD Admitting [...] for alcohol withdrawal symptoms. Unfortunately, he left AMA on 06/04/24. He says he has a follow up with our lung nodule clinic tomorrow and then has a flight to [facility] to [place]. He claims to be enrolling into a residential alcohol treatment program in [place] but I have seen no proof of that. Due to hypertension and tachycardia ongoing on 06/04/24 I did not feel he was hemodynamically stable enough for discharge. I did order a 380 mg IM Vivitrol injection which he obtained on 06/04/24 before deciding to leave [place]. He was recently admitted earlier in May [...] lb). His temporal temperature is 36.6 C (97.9F). His blood pressure is 141/99 and his [...] PRN medications: acetaminophen, albuterol, aluminum & magnesium hydroxide- simethicone, hydrALAZINE, hydrOXYzine pamoate, loperamide, LORazepam, magnesium hydroxide, nicotine polacrilex, ondansetron ODT, traZODone DISCHARGE INSTRUCTIONS Activity activity as tolerated. Disposition AMA. He says he is flying to [place] tomorrow to enroll in a residential alcohol [...] about these medications Vivitrol injection Follow Up [facility] Addiction IOP [address] [address] Call To schedule intake appointment for IOP assessment [facility] Family Medicine [address] [address] For primary care needs. Future Appointments Date Time Provider Department Center 06/05/2024 10:20 AM JUAN Bajwa CNP [facility] PUL None 06/16/2024 2:00 PM Lynda Rasheed MD [facility] The patient was also instructed to: Attend [...] summary: < 30 minutes documented in this [facility]03-06-2025 Nurse Note* Nicole Albrecht RN - 06/04/2024 2:03 PM EST Patient reports he has a CT scan tomorrow morning at [place] and then will be leaving for addiction treatment in [place] later that day. He spoke with the doctor about wanting to be discharged today. Dr. mckeon said he can not discharge him and he will need to go AMA. The patient reports withthe arrangement he made he can not wait [...] He denies any form of hallucinations. He d enies any issues after the Vivitrol injection given. His only complaint is a little dry mouth. He says water has helped that sensation. Offered a meeting book, tool box card, and little red big book.He reports having them at home already. He [...] by our tech. He changed into them toleave. 1509- The patient is being walked down to the exit. He has his items from the room in hand. He is wearing his bracelet for the injections he just received. He has a steady gait and is without complaint. [facility] [id number] Nurse Note* Nicole Albrecht RN - 06/04/2024 2:03 PM EST Patient reports he has a CT scan tomorrow morning at [place] and then will be leaving for addiction treatment in [place] later that day. He spoke with the doctor about wanting to be discharged today. Dr. mckeon said he can not discharge him and he will need to go AMA. The patient reports withthe arrangement he made he can not wait [...] He denies any form of hallucinations. He d enies any issues after the Vivitrol injection given. His only complaint is a little dry mouth. He says water has helped that sensation. Offered a meeting book, tool box card, and little red big book.He reports having them at home already. He [...] by our tech. He changed into them toleave. 1509- The patient is being walked down to the exit. He has his items from the room in hand. He is wearing his bracelet for the injections he just received. He has a steady gait and is without complaint. * Nicole Albrecht RN - 06/04/2024 12:30 PM EST No issue reported after the Naltrexone pill given to the patient. He reports last time he took the medication it really helped his cravings. He reports taking the oral and injection form once in the past. * Nicole Albrecht RN - 06/04/2024 11:01 AM EST He reports that he took the injection in the past and tolerated it well. Education on Vivitrol injection completed. Information reviewed and time allowed for questions. He voiced understanding of theinformation. Mr. Hogan is agreeable to alert his and treatment facility that he is checking into that he took a medication that can cause a depressed mood and asking the persons told to brings such mood changes if noted to his attention. The patient is agreeable to seek medical attentionimmediately if he were to have any thoughts of self harm. He is knowledgeable about the importance of wearing identifications of taking this medication that would alert medical personnel so if neededthey could properly treat him. * Evelyn Abad RN - 06/04/2024 12:07 AM EST Patient is up and steady, seen socializing in group room. Pt is cooperative and med compliant. Pt denies SI/HI/AVH. Pt encouraged to notify staff for any questions and concerns. * Nanette De Santiago RN - 06/03/2024 6:52 PM EST Patient woke up at 0900, and all safety measures in place. Patient anxious. Patient attended groups. Patient eating and drinking well. Patient wears glasses. Patient compliant with all medications Q-shift. Patient states I want to leave tomorrow. I have to go to [place] on Saturday for Lung nodules. Patient denies S.I.,H.I.AH/VH/TH Q-shift. CIWA of 5. Continue to monitor patient. * Nanette De Santiago RN - 06/03/2024 1:39 PM EST Patient received Nicotine Lozenge as per orders PRN PO at 1340, and 1740. * Nanette De Santiago RN - 06/03/2024 12:41 PM EST Med. Rec. Done with Jesse at [facility] at 1230. * Nanette De Santiago RN - 06/03/2024 12:29 PM EST Patient received PO PRN Tylenol as per orders at 1228 for lower back arthritis pain. * Nanette De Santiago RN - 06/03/2024 11:59 AM EST Patient received Nicotine Lozenge at 1139 and 1705 PRN PO as per orders. Patient received PO PRN Albuterol as per orders at 1705. * Claudia Jin RN - 06/03/2024 1:41 AM EST Skin check was done - pt has [...] compliant with his medications. documented in this [facility]03-06-2025 Nurse Note* Nicole Albrecht RN - 06/04/2024 12:30 PM EST No issue reported after the Naltrexone pill given to the patient. He reports last time he took the medication it really helped his cravings. He reports taking the oral and injection form once in the past. [facility] [id number] History of Present illness Narrative* Christie Greene, DO - 06/04/2024 12:14 PM EST Images from the original note were not included. ADDICTION MEDICINE PROGRESS NOTE Patient: Maria De Jesus Hogan __ Problem List: Principal Problem: Alcohol withdrawal with [...] going to the residential treatment facility in [place] but is hopeful about it. He needs to leave by3:00 PM today to prepare for his flight. [...] advised to remain on the unit for mo nitoring until 6:00 PM. He is open to [...] PRN medications: acetaminophen, albuterol, aluminum & magnesium hydroxide- simethicone, hydrALAZINE, hydrOXYzine pamoate, loperamide, LORazepam, magnesium hydroxide, [...] go to a 90 day rehab in [place], [place] tomorrow. He is agreeable to starting [...] he is to leave for residential in [place] tomorrow. His heart rate was tachycardic and was being treated. He was asked to remain on the unit for monitoring until 6:00 PM. A discharge prior to this time will be considered AMA. This is pending: Resolution of withdrawal symptoms. Medical stabilization. Labs/tests/tasks to review: Monitor HR/tachycardia. Production Cook to coordinate care with: N/A. Will follow. [...] say she is still going to leave AMA Will give him Vivitrol IM before he leaves. * Lauryn Solano - 06/04/2024 10:31 AM EST Nutrition rescreen completed. Patient assigned a level 1. * Arturo Parry RRT - 06/03/2024 4:18 PM EST Patient declined smoking cessation counseling at this time. He was counseled on 05/09/2024. Patient has all of the smoking cessation handouts. Will follow up in 6 weeks. documented in this [facility]03-06-2025 Nurse Note* Nicole Albrecht RN - 06/04/2024 11:01 AM EST He reports that he took the injection in the past and tolerated it well. Education on Vivitrol injection completed. Information reviewed and time allowed for questions. He voiced understanding of theinformation. Mr. Hogan is agreeable to alert his and treatment facility that he is checking into that he took a medication that can cause a depressed mood and asking the persons told to brings such mood changes if noted to his attention. The patient is agreeable to seek medical attentionimmediately if he were to have any thoughts of self harm. He is knowledgeable about the importance of wearing identifications of taking this medication that would alert medical personnel so if neededthey could properly treat him. [facility] [id number] Hospital Discharge instructions* Discharge Instructions* Christie Greene DO - 06/04/2024 10:51 AM EST Images from the original note were not included. [facility] PROGRAMS __ Addiction Medicine Intensive Outpatient Program [place] ([facility]): [phone] [place]: [phone] [place]: [phone] Behavioral Health Intensive Outpatient Program [place] ([facility]): [phone] [place]: [phone] First Step [place] ([facility]): [phone] [place]: [phone] Partial Hospitalization Program [place] ([facility]): [phone] Traumatic Stress Center [place] ([facility]): [phone] Vivitrol Clinic [place] ([facility]): [phone] Alcoholics Anonymous Meetings [email or web address] [facility] [address] [place] [phone] * Discharge Instr - Other Orders* JEREMY Solis - 06/03/2024 11:46 AM EST After detox you should abstain from any use of any mood altering chemical Appointment with your primary care physician should be scheduled It is highly recommended that you attend post hospital treatment Please read the information give to you - Intro to 12 step programs Call the National Suicide Prevention Hotline if needed at: 9-728-967-HITG (0332) Please call the following number should you have questions regarding your discharge or aftercare appointments: 4 [facility] documented in this [facility]03-06-2025 Nurse Note* Evelyn Abad RN - 06/04/2024 12:07 AM EST Patient is up and steady, seen socializing in group room. Pt is cooperative and med compliant. Pt denies SI/HI/AVH. Pt encouraged to notify staff for any questions and concerns. [facility] [id number] Nurse Note* Nanette De Santiago RN - 06/03/2024 6:52 PM EST Patient woke up at 0900, and all safety measures in place. Patient anxious. Patient attended groups. Patient eating and drinking well. Patient wears glasses. Patient compliant with all medications Q-shift. Patient states I want to leave tomorrow. I have to go to [place] on Saturday for Lung nodules. Patient denies S.I.,H.I.AH/VH/TH Q-shift. CIWA of 5. Continue to monitor patient. [facility] [id number] NotePatient declined smoking cessation counseling at this time. He was counseled on 05/09/2024. Patient has all of the smoking cessation handouts. Will follow up in 6 weeks.[facility]03-05-2025 Nurse Note* Nanette De Santiago RN - 06/03/2024 1:39 PM EST Patient received Nicotine Lozenge as per orders PRN PO at 1340, and 1740. [facility] [id number] Telephone encounter Note* Telephone Encounter - Tosha Lopez - 06/03/2024 1:15 PM EST LVM for pt to call office to reschedule CT scan and follow up kavon Lara. [facility] [id number] Nurse Note* Nanette De Santiago RN - 06/03/2024 12:41 PM EST Med. Rec. Done with Jesse at [facility] at 1230. [facility] [id number] Nurse Note* Nanette De Santiago RN - 06/03/2024 12:29 PM EST Patient received PO PRN Tylenol as per orders at 1228 for lower back arthritis pain. [facility] [id number] Group counseling note* Group Note - Aurora Camarena - 06/03/2024 12:24 PM EST Department: [facility] Group Topic: Recreation Therapy [...] Jesus Hogan Date of : 1965 MR: [id number] Appearance: Good eye contact Affect: Appropriate Behavior: [...] Alcohol withdrawal with inpatient treatment, uncomplicated (HCC) [facility]03-05-2025 Nurse Note* Nanette De Santiago RN - 06/03/2024 11:59 AM EST Patient received Nicotine Lozenge at 1139 and 1705 PRN PO as per orders. Patient received PO PRN Albuterol as per orders at 1705. [facility] [id number] Note* Care Coordination - JEREMY Solis - 06/03/2024 11:44 AM EST Behavioral Health Psycho-Social Assessment (Social Work) Date: 06/03/2024 Patient Name: Maria De Jesus Hogan : 1965 Identifying Information: Patient is a 58-year-old male mated to [facility] for detox and alcohol. Patient is [...] Patient has history of noncompliance with treatment m edications Patient has history of psychiatric admission. Reports admissions were due to suicidal ideation while intoxicated. Denies history of recent or past history suicide attempts. Patient denies current SI/HI/AVH. Patient does have an extensive history of passive SI secondary tointoxication. Patient denies plan, intent, or method but [...] Patient does have extensive history of falls whileintoxicated. Patient denies any history of MAT engagement. [...] as an adult. Patient denies any history Orbisonia or status. Family Constellation/Childhood History: Patient reports that he is currently to his living in [facility]. Patient reports that he has 3 biological children and 4 stepchildren. Patient reports that his father in his 11 years old. Patient did not report his mother is stillalive currently. Patient was born and raised in [place], [place] by his mother and father. He reports that his father when he was 11 years old, and this was traumatic for him. Patient reports that he was raisedprimarily by his mother for the remainder of his childhood. He denies childhood abuse. Education/Work: Patient reports that he graduated high school. 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 Patient denies SSI/SSD. Cultural/Spirituality/Leisure: Patient denies any cultural needs or concerns at the current time. Patient denies identify any sikhism preference. It is unknown if patient is [...] plan, intent, or method but reports more increasedfeelings of depression and sadness.) Activating Events (Recent): [...] abuse or dependence, Hopelessness, Agitation or severe anxiety,Major depressive episode, Perceived burden on family or [...] to them while they are on the unit.Patient report needing additional current time. Patient encouraged to seek out [facility] unit staff should they identify any additional [...] to contact the dictating provider for clarification. [facility] [id number] Note* Care Coordination - JEREMY Solis - 06/03/2024 11:44 AM EST Behavioral Health Psycho-Social Assessment (Social Work) Date: 06/03/2024 Patient Name: Maria De Jesus Hogan : 1965 Identifying Information: Patient is a 58-year-old male mated to [facility] for detox and alcohol. Patient is [...] Patient has history of noncompliance with treatment m edications Patient has history of psychiatric admission. Reports admissions were due to suicidal ideation while intoxicated. Denies history of recent or past history suicide attempts. Patient denies current SI/HI/AVH. Patient does have an extensive history of passive SI secondary tointoxication. Patient denies plan, intent, or method but [...] Patient does have extensive history of falls whileintoxicated. Patient denies any history of MAT engagement. [...] as an adult. Patient denies any history Orbisonia or status. Family Constellation/Childhood History: Patient reports that he is currently to his living in [facility]. Patient reports that he has 3 biological children and 4 stepchildren. Patient reports that his father in his 11 years old. Patient did not report his mother is stillalive currently. Patient was born and raised in [place], [place] by his mother and father. He reports that his father when he was 11 years old, and this was traumatic for him. Patient reports that he was raisedprimarily by his mother for the remainder of his childhood. He denies childhood abuse. Education/Work: Patient reports that he graduated high school. 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 Patient denies SSI/SSD. Cultural/Spirituality/Leisure: Patient denies any cultural needs or concerns at the current time. Patient denies identify any sikhism preference. It is unknown if patient is [...] plan, intent, or method but reports more increasedfeelings of depression and sadness.) Activating Events (Recent): [...] abuse or dependence, Hopelessness, Agitation or severe anxiety,Major depressive episode, Perceived burden on family or [...] to them while they are on the unit.Patient report needing additional current time. Patient encouraged to seek out [facility] unit staff should they identify any additional [...] to contact the dictating provider for clarification. [facility] [id number] History and physical note* Christie Greene, - 06/03/2024 10:46 AM EST Images from the original note were not included. ADDICTION MEDICINE 4E DETOX UNIT H&P Patient: Maria De Jesus Hogan Admit Date: 06/02/2024 Primary Care Physician: Lynda Rasheed MD __ HISTORY OF PRESENT ILLNESS Chief Complaint Patient [...] Jesus Hogan was recently admitted to the [facility] detox unit from 05/07 through 05/10. He admits to relapsing and drinking shortly after his discharge. He started by drinking 6 tall boy 8%beers per day. He blames this on his step-daughter, who was reportedly bringing alcohol into the household. He states that he kicked her out and has been slowly decreasing his alcohol intake to 3 beers per day. He discussed his alcohol intake with his wealth uncle in [place], [place] and his uncle agreed to bring [place] to [place] for rehabilitation. He is supposed to leave Saturday, with his , for a 90 day program, while his son will watch his house. Per ED documentation, he was supposed to starta new job on Saturday, but he states [...] ounce 8% beers per day. He also smokes1-1.5 ppd of cigarettes since age 19. He [...] intoxication without complication (CMS/HCC) (HCC) 04/10/2024 Alcoholism ([facility]/HCC) (HCC) Anxiety Apical lung nodule Arthritis Maria De Jesus Cerebral artery occlusion with cerebral infarction (HCC) Cerebrovascular disease Depression GERD (gastroesophageal reflux disease) Maria De Jesus Hypertension Insomnia Past Surgical History Past Surgical History: Procedure Laterality Date COLONOSCOPY 06/10/2020 EGD/Dr Madison/AMANDA CYST REMOVAL face EGD (HISTORICAL) 07/23/2022 Dr. Estrella-[facility] SMALL INTESTINE SURGERY UPPER GASTROINTESTINAL ENDOSCOPY 09/27/2021 normal WISDOM TOOTH EXTRACTION Family History Family History Problem Relation Name Age of Onset Depression Sister Maria De Jesus Hogan Other (70034) Sister Maria De Jesus Hogan agoraphobia Arthritis Sister Maria De Jesus Hogan Cancer Mother Maria De Jesus Hogan colon rectal cancer; dx after age 50 Other ([id number]) Mother Maria De Jesus Hogan alcoholism Alcohol abuse Mother Maria De Jesus Hogan Stroke Mother Maria De Jesus Hogan Other ([id number]) Father Maria De Jesus Hgoan h/o rheumatic fever, cardiac arrest due to bee sting Hypertension Father Maria De Jesus Hogan [employer] Tobacco Use: High Risk (05/25/2024) Patient History [...] 0 min Stress: Stress Concern Present (06/03/2024) [employer] [place] [facility] [employer] [facility] - Occupational Stress Questionnaire Feeling of Stress : To some extent Social Connections: Socially Isolated (05/08/2024) Social Connection and Isolation Panel [NHANES] Frequency of Communication with Friends and Family: Twice a week Frequency of Social Gatherings with Friends and Family: Never Attends Taoist Services: Never Active Member of Clubs or [...] Last Year: No Utilities: At Risk (05/08/2024) [facility] Utilities Threatened with loss of utilities: [...] PRN medications: acetaminophen, albuterol, aluminum & magnesium hydroxide- simethicone, hydrALAZINE, hydrOXYzine pamoate, loperamide, LORazepam, magnesium hydroxide, nicotine polacrilex, ondansetron ODT, traZODone Continuous Inpatient Infusions ASSESSMENT & PLAN Alcohol use disorder, severe Counseled patient on biopsychosocial consequences of substance use. Encouraged professional chemical dependency treatment. Encouraged 12 step meeting attendance. Follow up plans for addiction management discussed with patient: Patient reporting he is to go to a 90 day rehab in [place], [place] on Saturday. Will discuss MAT with [...] and numerous admissions with him again in aneffort to motivate him to seek sobriety May be able to give IM Vivitrol injection for MAT before discharge. CDT on 05/08/24 was 6.8% indicating chronic drinking. Would recommend repeat CDT in outpatient setting in 2-3 months to monitor alcohol use but he isn't committing to seeing me or any my colleagues in the outpatient setting [facility] [id number] [facility]03-05-2025 History and physical note* Christie Greene, - 06/03/2024 10:46 AM EST Images from the original note were not included. ADDICTION MEDICINE DETOX UNIT H&P Patient: Maria De Jesus Hogan Admit Date: 06/02/2024 Primary Care Physician: Lynda Rasheed MD __ HISTORY OF PRESENT ILLNESS Chief Complaint Patient [...] Jesus Hogan was recently admitted to the [facility] detox unit from 05/07 through 05/10. He admits to relapsing and drinking shortly after his discharge. He started by drinking 6 tall boy 8%beers per day. He blames this on his step-daughter, who was reportedly bringing alcohol into the household. He states that he kicked her out and has been slowly decreasing his alcohol intake to 3 beers per day. He discussed his alcohol intake with his wealth uncle in [place], [place] and his uncle agreed to bring [place]. He is supposed to leave Saturday, with his , for a 90 day program, while his son will watch his house. Per ED documentation, he was supposed to starta new job on Saturday, but he states [...] ounce 8% beers per day. He also smokes1-1.5 ppd of cigarettes since age 19. He [...] CYST REMOVAL face EGD (HISTORICAL) 07/23/2022 Dr. Estrella-[facility] SMALL INTESTINE SURGERY UPPER GASTROINTESTINAL ENDOSCOPY 09/27/2021 normal WISDOM TOOTH EXTRACTION Family History Family History Problem Relation Name Age of Onset Depression Sister Maria De Jesus Hogan Other ([id number]) Sister Maria De Jesus Hogan agoraphobia Arthritis Sister Maria De Jesus Hogan Cancer Mother Maria De Jesus Hogan colon rectal cancer; dx after age 50 Other ([id number]) Mother Maria De Jesus Hogan alcoholism Alcohol abuse Mother Maria De Jesus Hogan Stroke Mother Maria De Jesus Hogan Other ([id number]) Father Maria De Jesus Hogan h/o rheumatic [...] 0 min Stress: Stress Concern Present (06/03/2024) [employer] [place] [facility] [employer] [facility] - Occupational Stress Questionnaire Feeling of Stress : To some extent Social Connections: Socially Isolated (05/08/2024) Social Connection and Isolation Panel [NHANES] Frequency of Communication with Friends and Family: Twice a week Frequency of Social Gatherings with Friends and Family: Never Attends Taoist Services: Never Active Member of Clubs or [...] Last Year: No Utilities: At Risk (05/08/2024) [facility] Utilities Threatened with loss of utilities: [...] PRN medications: acetaminophen, albuterol, aluminum & magnesium hydroxide- simethicone, hydrALAZINE, hydrOXYzine pamoate, loperamide, LORazepam, magnesium hydroxide, nicotine polacrilex, ondansetron ODT, traZODone Continuous Inpatient Infusions ASSESSMENT & PLAN Alcohol use disorder, severe Counseled patient on biopsychosocial consequences of substance use. Encouraged professional chemical dependency treatment. Encouraged 12 step meeting attendance. Follow up plans for addiction management discussed with patient: Patient reporting he is to go to a 90 day rehab in [place], [place] on Saturday. Will discuss MAT with [...] and numerous admissions with him again in aneffort to motivate him to seek sobriety May be able to give IM Vivitrol injection for MAT before discharge. CDT on 05/08/24 was 6.8% indicating chronic drinking. Would recommend repeat CDT in outpatient setting in 2-3 months to monitor alcohol use but he isn't committing to seeing me or any my colleagues in the outpatient setting documented in this encounterSNewark [id number] Nurse Note* Claudia Jin RN - 06/03/2024 1:41 AM EST Skin check was done - pt has [...] SI/HI/AVH. Pt is compliant with his medications. [facility]Ejjxfm04-33-8487 Emergency department Note* Helen Winter RN - 06/02/2024 9:51 PM EST Called report to Veronica @ [facility] HospitalSqbvdi16-79-9792 Emergency department Note* Helen Winter RN - 06/02/2024 9:51 PM EST Called report to Veronica @ 4E * Helen Winter RN - 06/02/2024 6:35 PM EST Pt normally drink 6-9 tall boys daily. Today pt only drank 3 and his last drink was about 5pm today. * Jen Nunez RN - 06/02/2024 5:41 PM EST Pt last drink 30 minutes ago. Pt drank 3 tallboys today. Normally drinks 6-9 tallboys. Would like to get detoxed * Catalino Diallo DO - 06/02/2024 5:37 PM EST Emergency Department Encounter [facility] ED Patient: Maria De Jesus Hogan : [...] drink. Not having any physical complaints. Last drinkwas just before leaving to come here to [...] are any questions or concerns please feel freeto contact the dictating provider for clarification.) Catalino Diallo DO [employer] Catalino Diallo DO 06/02/24 182 * JUAN Lang CNP - 06/02/2024 5:37 PM EST EMERGENCY DEPARTMENT ENCOUNTER Pt Name: Maria De [...] detox again because he starts a new jobon Saturday and he wants to be ready [...] intoxication without complication (CMS/HCC) (HCC) 04/10/2024 Alcoholism ([facility]/HCC) (HCC) Anxiety Arthritis Maria De Jesus Cerebral artery occlusion with cerebral infarction (HCC) Cerebrovascular disease Depression GERD (gastroesophageal reflux disease) Maria De Jesus Hypertension Insomnia SURGICAL HISTORY Past Surgical History: Procedure Laterality Date COLONOSCOPY 06/10/2020 EGD/Dr Madison/AMANDA CYST REMOVAL face EGD (HISTORICAL) 07/23/2022 Dr. Estrella-[facility] SMALL INTESTINE SURGERY UPPER GASTROINTESTINAL ENDOSCOPY 09/27/2021 [...] Depression Sister Maria De Jesus Hogan Other ([phone]) Sister Maria De Jesus Hogan agoraphobia Arthritis Sister Maria De Jesus Hogan Cancer Mother Maria De Jesus Hogan colon rectal cancer; dx after age 50 Other ([id number]) Mother Maria De Jesus Hogan alcoholism Alcohol abuse Mother Maria De Jesus Hogan Stroke Mother Maria De Jesus Hogan Other ([id number]) Father Maria De Jesus Hogan h/o rheumatic [...] 0 min Stress: Stress Concern Present (05/08/2024) [employer] [place] [facility] [employer] [facility] - Occupational Stress Questionnaire Feeling of Stress : To some extent Social Connections: Socially Isolated (05/08/2024) Social Connection and Isolation Panel [NHANES] Frequency of Communication with Friends and Family: Twice a week Frequency of Social Gatherings with Friends and Family: Never Attends Taoist Services: Never Active Member of Clubs or [...] job on Saturday and he wants to beready for his new job.. The differential diagnosis associated with this patient's presentation includes alcohol use disorder. Our workup consisted of ordering/reviewing: CBC, CMP, drug screen, ethanol, COVID antigen . Diagnostic tests considered but not performed: None To aid in management, I performed an independent interpretation of none. I also reviewed external records [facility]. I discussed their care with Admitting team Dr. Mckeon, drink 3 tall boys prior to coming in so helooks better than he normally would he was hypertensive tachycardic on arrival he states every timehe oneyda up he gets tremors and diaphoretic [...] are any questions or concerns please feel freeto contact the dictating provider for clarification.) JUAN Lang CNP (electronically signed) Emergency Medicine Provider JUAN Lang CNP 06/02/24 183 Cosigned by Catalino Diallo DO at 06/03/2024 8:01 PM EST documented in this [facility]03-04-2025 Emergency department Note* Helen Winter RN - 06/02/2024 6:35 PM EST Pt normally drink 6-9 tall boys daily. Today pt only drank 3 and his last drink was about 5pm today. [facility] HospitalBxokcc74-26-3453 Emergency department Note* Jen Nunez RN - 06/02/2024 5:41 PM EST Pt last drink 30 minutes ago. Pt drank 3 tallboys today. Normally drinks 6-9 tallboys. Would like to get detoxed [facility] HospitalYlacwa42-24-3826 Physician Emergency department Note* Catalino Diallo DO - 06/02/2024 5:37 PM EST Emergency Department Encounter [facility] ED Patient: Maria De Jesus Hogan : [...] drink. Not having any physical complaints. Last drinkwas just before leaving to come here to [...] are any questions or concerns please feel freeto contact the dictating provider for clarification.) Catalino Diallo DO [employer] Catalino Daillo DO 06/02/241824 [employer] Phone: [phone] 416-581503-04-2025 Physician Emergency department Note* Shelly Clarke APRN - PARADI TENDER - 06/02/2024 5:37 PM EST EMERGENCY DEPARTMENT ENCOUNTER Pt Name: Maria De [...] detox again because he starts a new jobon Saturday and he wants to be ready [...] CYST REMOVAL face EGD (HISTORICAL) 07/23/2022 Dr. Estrella-[facility] SMALL INTESTINE SURGERY UPPER GASTROINTESTINAL ENDOSCOPY 09/27/2021 [...] Depression Sister Maria De Jesus Hogan Other ([phone]) Sister Maria De Jesus Hogan agoraphobia Arthritis Sister Maria De Jesus Hogan Cancer Mother Maria De Jesus Hogan colon rectal cancer; dx after age 50 Other ([id number]) Mother Maria De Jesus Hogan alcoholism Alcohol abuse Mother Maria De Jesus Hogan Stroke Mother Maria De Jesus Hogan Other ([phone]) Father Maria De Jesus Hogan h/o rheumatic [...] 0 min Stress: Stress Concern Present (05/08/2024) [employer] [place] [facility] [employer] [facility] - Occupational Stress Questionnaire Feeling of Stress : To some extent Social Connections: Socially Isolated (05/08/2024) Social Connection and Isolation Panel [NHANES] Frequency of Communication with Friends and Family: Twice a week Frequency of Social Gatherings with Friends and Family: Never Attends Taoist Services: Never Active Member of Clubs or [...] Phys[facility] (Per Emergency Physician): Interpretation per [...] job on Saturday and he wants to beready for his new job.. The differential diagnosis associated with this patient's presentation includes alcohol use disorder. Our workup consisted of ordering/reviewing: CBC, CMP, drug screen, ethanol, COVID antigen . Diagnostic tests considered but not performed: None To aid in management, I performed an independent interpretation of none. I also reviewed external records from [facility]. I discussed their care with Admitting team Dr. Mckeon, drink 3 tall boys prior to coming in so helooks better than he normally would he was hypertensive tachycardic on arrival he states every timehe oneyda up he gets tremors and diaphoretic [...] are any questions or concerns please feel freeto contact the dictating provider for clarification.) JUAN Lang CNP (electronically signed) Emergency Medicine Provider JUAN Lang CNP 06/02/241837 Cosigned by Catalino Diallo DO at 06/03/2024 8:01 PM EST [facility] Work Phone: [phone] Telephone encounter Note* Telephone Encounter - Tea Reno LPN - 06/02/2024 1:42 PM EST Recent Visits Date Type Provider Dept 05/20/24 Office Visit Lynda Rasheed MD [facility] 02/05/24 Office Visit Lynda Rasheed MD [facility] Showing recent visits within past 365 days and meeting all other requirements Future Appointments Date Type Provider Dept 06/16/24 Appointment Lynda Rasheed MD [facility] Showing future appointments within next 90 [...] recent labs completed in chart? N/A None [facility] [id number] Miscellaneous Notes* Telephone Encounter - Tea Reno LPN - 06/02/2024 1:42 PM EST Recent Visits Date Type Provider Dept 05/20/24 Office Visit Lynda Rasheed MD [facility] 02/05/24 Office Visit Lynda Rasheed MD [facility] Showing recent visits within past 365 days and meeting all other requirements Future Appointments Date Type Provider Dept 06/16/24 Appointment Lynda Rasheed MD [facility] Showing future appointments within next 90 [...] in chart? N/A None documented in this encounterSNewark HospitalGsabaz64-86-3696 Telephone encounter Note* Telephone Encounter - Tea Reno LPN - 06/02/2024 1:41 PM EST Recent Visits Date Type Provider Dept 05/20/24 Office Visit Lynda Rasheed MD [facility] 02/05/24 Office Visit Lynda Rasheed MD [facility] Showing recent visits within past 365 days and meeting all other requirements Future Appointments Date Type Provider Dept 06/16/24 Appointment Lynda Rasheed MD [facility] Showing future appointments within next 90 [...] recent labs completed in chart? N/A None [facility] [id number] Miscellaneous Notes* Telephone Encounter - Tea Reno LPN - 06/02/2024 1:41 PM EST Recent Visits Date Type Provider Dept 05/20/24 Office Visit Lynda Rasheed MD [facility] 02/05/24 Office Visit Lynda Rasheed MD [facility] Showing recent visits within past 365 days and meeting all other requirements Future Appointments Date Type Provider Dept 06/16/24 Appointment Lynda Rasheed MD [facility] Showing future appointments within next 90 [...] in chart? N/A None documented in this [facility]02-25-2025 NoteMy Chart messaged the patient letting him know he was referred for smoking cessation counseling. Gave contact information, will provide follow up.[facility]02-24-2025 Emergency department Note* Radha Gaytan RN - 05/25/2024 4:02 PM EST Pt was seen standing in his room and closed the curtain. [facility] HospitalTbzvvd79-97-1475 Emergency department Note* Radha Gaytan RN - 05/25/2024 4:02 PM EST Pt was seen standing in his room and closed the curtain. * Goyo Melara MD - 05/25/2024 3:45 PM EST EMERGENCY DEPARTMENT ENCOUNTER Pt Name: Maria De [...] CYST REMOVAL face EGD (HISTORICAL) 07/23/2022 Dr. Estrella-[facility] SMALL INTESTINE SURGERY UPPER GASTROINTESTINAL ENDOSCOPY 09/27/2021 [...] Depression Sister Maria De Jesus Hogan Other ([id number]) Sister Maria De Jesus Hogan agoraphobia Arthritis Sister Maria De Jeuss Hogan Cancer Mother Maria De Jesus Hogan colon rectal cancer; dx after age 50 Other ([phone]) Mother Maria De Jesus Hogan alcoholism Alcohol abuse Mother Maria De Jesus Hogan Stroke Mother Maria De Jesus Hogan Other ([phone]) Father Maria De Jesus Hogan h/o rheumatic [...] 0 min Stress: Stress Concern Present (05/08/2024) [employer] [place] [employer] [facility] - Occupational Stress Questionnaire Feeling of Stress : To some extent Social Connections: Socially Isolated (05/08/2024) Social Connection and Isolation Panel [NHANES] Frequency of Communication with Friends and Family: Twice a week Frequency of Social Gatherings with Friends and Family: Never Attends Taoist Services: Never Active Member of Clubs or [...] Medications - No data to display SCREENINGS [place] Coma Scale Best Eye Response: Spontaneous Best Verbal Response: Oriented Best Motor Response: Follows commands [place] Coma Scale Score: 15 MDM elements: The [...] initial encounter 2. Alcoholic intoxication without complication ([facility] ([facility]) DISPOSITION Discharge 05/25/2024 04:57:48 PM PATIENT REFERRED TO: Lynda Rasheed MD [address] [place] [address] [place] [address] [id number] As needed DISCHARGE MEDICATIONS: New Prescriptions No medications on file (Comment: Please note this report has been produced using speech recognition software and may contain errors related to that system including errors in grammar, punctuation, and spelling, as well as words and phrases that may be inappropriate. If there are any questions or concerns please feel freeto contact the dictating provider for clarification.) Goyo Melara MD (electronically signed) Emergency Medicine Provider Goyo eMlara MD 05/25/24 3809 * Evelyn Wick RN - 05/25/2024 3:45 PM EST Patient to room 7 with c/o a fall down steps today, and hitting his head. Patient has been drinkingalcohol today and reports he has drank 3 tall boys today. V/S obtained call light within reach. documented in this [facility]02-24-2025 Emergency department Triage note* Evelyn Wick RN - 05/25/2024 3:45 PM EST Patient to room 7 with c/o a fall down steps today, and hitting his head. Patient has been drinkingalcohol today and reports he has drank 3 tall boys today. V/S obtained call light within reach. [facility] HospitalOlapbe82-70-9728 Physician Emergency department Note* Goyo Melara MD - 05/25/2024 3:45 PM EST EMERGENCY DEPARTMENT ENCOUNTER Pt Name: Maria De [...] CYST REMOVAL face EGD (HISTORICAL) 07/23/2022 Dr. Estrella-[facility] SMALL INTESTINE SURGERY UPPER GASTROINTESTINAL ENDOSCOPY 09/27/2021 [...] Depression Sister Maria De Jesus Hogan Other ([phone]) Sister Maria De Jesus Hogan agoraphobia Arthritis Sister Maria De Jesus Hogan Cancer Mother Maria De Jesus Hogan colon rectal cancer; dx after age 50 Other ([id number]) Mother Maria De Jesus Hogan alcoholism Alcohol abuse Mother Maria De Jesus Hogan Stroke Mother Maria De Jesus Hogan Other ([phone]) Father Maria De Jesus Hogan h/o rheumatic [...] 0 min Stress: Stress Concern Present (05/08/2024) [employer] [place] [facility] [employer] [facility] - Occupational Stress Questionnaire Feeling of Stress : To some extent Social Connections: Socially Isolated (05/08/2024) Social Connection and Isolation Panel [NHANES] Frequency of Communication with Friends and Family: Twice a week Frequency of Social Gatherings with Friends and Family: Never Attends Taoist Services: Never Active Member of Clubs or [...] Medications - No data to display SCREENINGS [place] Coma Scale Best Eye Response: Spontaneous Best Verbal Response: Oriented Best Motor Response: Follows commands [place] Coma Scale Score: 15 MDM elements: The [...] initial encounter 2. Alcoholic intoxication without complication ([facility] ([facility]) DISPOSITION Discharge 05/25/2024 04:57:48 PM PATIENT REFERRED TO: Lynda Rasheed MD [address] [place] [address] [address] [facility] [id number] As needed DISCHARGE MEDICATIONS: New Prescriptions No medications on file (Comment: Please note this report has been produced using speech recognition software and may contain errors related to that system including errors in grammar, punctuation, and spelling, as well as words and phrases that may be inappropriate. If there are any questions or concerns please feel freeto contact the dictating provider for clarification.) Goyo Melara MD (electronically signed) Emergency Medicine Provider Goyo Melara MD 05/25/24 1659 [id number] Telephone encounter Note* Telephone Encounter - Jennifer Medel RN - 05/23/2024 2:49 PM EST We have been unable to reach your patient to schedule their testing. Test Name: TTE 2nd attempt, my chart message, TE to office, cancel request on 05/20/24. JS 1st attempt LVM on 08.10.23 SDS [id number] Miscellaneous Notes* Telephone Encounter - Jennifer Medel RN - 05/23/2024 2:49 PM EST We have been unable to reach your patient to schedule their testing. Test Name: TTE 2nd attempt, my chart message, TE to office, cancel request on 05/20/24. JS 1st attempt LVM on 5..23 SDS documented in this [facility]02-20-2025 NoteReferral received for ED, frequency. Reached out to pt, no answer. 02-20-2025 Telephone encounter Note* Telephone Encounter - Rosalee Barrientos - 05/21/2024 9:56 AM EST Referral received for ED, frequency. Reached out to pt, no answer. LMTCO [facility] HospitalFjlpbt45-39-4724 Miscellaneous Notes* Telephone Encounter - Rosalee Barrientos - 05/21/2024 9:56 AM EST Referral received for ED, frequency. Reached out to pt, no answer. LMTCO documented in this [facility]02-19-2025 History of Present illness Narrative* Lynda Rasheed MD - 05/20/2024 1:00 PM EST Transition of Care Note HPI @PATIENTNAME@ presents for ddxn-sw-xmji visit @TODAYSDATE@ for follow up fromhospitalization for alochol withdrawal symptoms elevated liver enzymes.. Initial discharge date: 05/10/24. Interim history: Is a 58-year-old male with a past medical history of alcohol use disorder peripheral neuropathy on gabapentin fatty liver that was admitted for alcohol withdrawal to the hospital. He had been admittedprior to further alcohol withdrawal as well. Per records from electronic commerce specialist physician he wasdetoxed but did not follow through any chemical [...] noted Lombardo's esophagitis. He also states that hehas had no abdominal pain nausea vomiting he has been trying to stop smoking. He has been using jessy ruben lozenges. He feels medicine has not helped or him the patches not help for him. He has decreased somewhat. His CT scan did show lung nodules. We discussed seeing a caustics loader. He has not beencoughing up any blood. States for the last several weeks he has had some issues with urinary frequency no burning no sign of blood. He has had some ED issues he is requesting to see a urologist. of Post Discharge communication contact: 05/13/2024 Communication within 2 business dates of Initial Discharge(via direct contact, phone, or electronicOR 2 documented attempts unsuccessful: [x] No [] [...] intoxication without complication (CMS/HCC) (HCC) 04/10/2024 Alcoholism ([facility]/HCC) (HCC) Anxiety Arthritis Maria De Jesus Cerebral [...] 0 min Stress: Stress Concern Present (05/08/2024) [employer] [place] [facility] [employer] [facility] - Occupational Stress Questionnaire Feeling of Stress : To some extent Social Connections: Socially Isolated (05/08/2024) Social Connection and Isolation Panel [NHANES] Frequency of Communication with Friends and Family: Twice a week Frequency of Social Gatherings with Friends and Family: Never Attends Taoist Services: Never Active Member of Clubs or [...] differential; Future - CBC auto differential - [facility]; Future Screening for colon cancer - Cancel: [facility]; Future - [facility]; Future Elevated LFTs - Cancel: [facility]; Future - US abdomen complete; Future - [facility]; Future ED (erectile dysfunction) of non-organic origin - Urinalysis with reflex microscopic (clean catch); Future - Urine culture (clean catch); Future - [facility]; Future - Urinalysis with reflex microscopic (clean catch) - Urine culture (clean catch) Urinary frequency - Urinalysis with reflex microscopic (clean catch); Future - Urine culture (clean catch); Future - [facility]; Future - Urinalysis with reflex microscopic (clean catch) - Urine culture (clean catch) Pulmonary nodule - [facility]ulmonology; Future Lombardo esophagus with esophagitis - [facility]; Future Diagnostic Tests performed in hospital: [...] Moderate Complexity: seen within 7-14 business days (88027) [] Severe Complexity: seen within 7 business days (22759) documented in this [facility]02-13-2025 History of Present illness Narrative* PABLO Paul - 05/14/2024 1:30 PM EST Missed Session Unexcused Pt did not call or show for Scheduled Assessment on this date. documented in this [facility]02-09-2025 Nurse Note* Stephanie Schmitt RN - 05/10/2024 2:43 PM EST Escorted off unit [facility] [id number] Nurse Note* Stephanie Schmitt RN - 05/10/2024 2:43 PM EST Escorted off unit * Stephanie Schmitt RN - 05/10/2024 2:27 PM EST Called for ride, on way. Given survey and belongings. to be here in 20. * Stephanie Schmitt RN - 05/10/2024 2:03 PM EST Denies si/hi. Discussed risk of using any etoh, street drugs, meds not prescribed or as, discussed increased riskor od or if uses following detox. Discussed discharge, IOP, stated understood and signed. Discussed red book, meetings. Given sdia papers and discussed. Discussed script and where sent. Discussed risk etoh with naltrexone. * Stephanie Schmitt RN - 05/10/2024 2:02 PM EST Asking to be discharged, stated needs to go home today. States will call [facility] himself. Discussed with Dr Thrasher, and he will discharge. * Stephanie Schmitt RN - 05/10/2024 9:52 AM EST Discussed this morning meetings, what his plans are for super bowl, IOP. 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 States he and plan on doing more together for health, walks etc. Discussed leisure activity. * Evelyn Abad RN - 05/09/2024 12:07 AM EST Patient is up and steady, withdrawn to room for majority of shift. Pt is cooperative and med compliant. Pt denies SI/HI/AVH. Pt encouraged to notify staff for any questions and concerns. * Nanette De Santiago RN - 05/08/2024 3:52 PM EST Patient received asleep in room at shift [...] Patient denies S.I.,H.I.,AH/VH/TH. Continue to monitor patient. * Nanette De Santiago RN - 05/08/2024 12:05 PM EST Medication rec. Done with Jace escobedo [facility] at 1200. * Nanette De Santiago RN - 05/08/2024 8:53 AM EST Patient received Nicotine Lozenge PRN as per orders at 0850. * Evelyn Abad RN - 05/08/2024 2:03 AM EST Patient arrived on unit from [facility] by stretcher. Pt's belongings secured by protective [...] any questions and concerns. documented in this [facility]02-09-2025 Nurse Note* Stephanie Schmitt RN - 05/10/2024 2:27 PM EST Called for ride, on way. Given survey and belongings. to be here in 20. [id number] Nurse Note* Stephanie Schmitt RN - 05/10/2024 2:03 PM EST Denies si/hi. Discussed risk of using any etoh, street drugs, meds not prescribed or as, discussed increased riskor od or if uses following detox. Discussed discharge, IOP, stated understood and signed. Discussed red book, meetings. Given sdoh papers and discussed. Discussed script and where sent. Discussed risk etoh with naltrexone. [facility] [id number] Nurse Note* Stephanie Schmitt RN - 05/10/2024 2:02 PM EST Asking to be discharged, stated needs to go home today. States will call [facility] himself. Discussed with Dr Thrasher, and he will discharge. [facility] [id number] [facility]02-09-2025 Nurse Note* Stephanie Schmitt RN - 05/10/2024 9:52 AM EST Discussed this morning meetings, what his plans are for super bowl, IOP. 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 States he and plan on doing more together for health, walks etc. Discussed leisure activity. [facility] [id number] Plan of care note* Care Plan - Stephanie Schmitt RN - 05/09/2024 6:27 PM EST Discussed coffee intake, states that he believes tremors are caused by the coffee. Discussed switching to water and gingerale. Also discussed the coffee may be affecting his heart rate. Up and social. Often walking the halls. Attended meetings. Appetite good. [facility] [id number] Miscellaneous Notes* Care Plan - Stephanie Schmitt RN - 05/09/2024 6:27 PM EST Discussed coffee intake, states that he believes tremors are caused by the coffee. Discussed switching to water and gingerale. Also discussed the coffee may be affecting his heart rate. Up and social. Often walking the halls. Attended meetings. Appetite good. * Care Coordination - JEREMY Solis - 05/08/2024 8:21 AM EST Behavioral Health Psycho-Social Assessment (Social Work) Date: [...] an extensive history of passive SI secondary tointoxication. Patient denies plan, intent, or method but reports more increased feelings of depression and sadness. Patient denies recent or past history of SIB. Substance Abuse/Use: Patient reports that he is currently drinking upwards of 9, 24 ounce Natradha Longoriady beers daily. Patient reports his last drink was 05/07/2024. Patient labs are positive for alcohol(0.351) and barbitutaes. Patient first drank alcohol when [...] Patient does have extensive history of falls whileintoxicated. Patient denies any history of MAT engagement. Patient reports his longest period of sobriety was 6 months. Patient has previous history of detox occurring on 01/23/2024, 07/27/2023, 07/08/2023, 02/08/2023, 05/20/2023 (medical), 10/25/2021, 02/15/2021(left AMA), 06/09/20, 10/01/19, 08/31/19 (left AMA), 2016 (left AMA), and 2014 (left AMA). He denies hist ory of residential treatment Patient reports previous history [...] poor nutrition and sleep secondary to his gomez bstance use. Legal/Trauma/ History: Patient denies any current legal issues. Patient reports past legal history of child support violations. Patient denies any history of childhood abuse. Patient does report however his father when he was 11 years old which was a traumatic incident to him. Patient denies any history of trauma abuse as an adult. Patient denies any history Orbisonia or status. Family Constellation/Childhood History: Patient reports that he is currently to his living in [facility]. Patient reports that he has 3 biological children and 4 stepchildren. Patient reports that his father in his 11 years old. Patient did not report his mother is stillalive currently. Patient was born and raised in [place], [place] by his mother and father. He reports that his father when he was 11 years old, and this was traumatic for him. Patient reports that he was raisedprimarily by his mother for the remainder of his childhood. He denies childhood abuse. Education/Work: Patient reports that he graduated high school. 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 Patient denies SSI/SSD. Cultural/Spirituality/Leisure: Patient denies any cultural needs or concerns at the current time. Patient denies identify any sikhism preference. It is unknown if patient is [...] plan, intent, or method but reports more increasedfeelings of depression and sadness.) Activating Events (Recent): Current or pending isolation or feeling alone, Recent loss(es) or othersignificant negative event(s) (legal, financial, relationship, etc.) Describe:: Ongoing struggles with substance use Treatment History: Previous psychiatric diagnoses and treatments, Non-compliant with treatment, [facility] (Patient has mental health diagnosis depression anxiety. Patient denies being on any medication for mental health needs. Patient has previous engagement with outpatient mental health providers but denies any current treatment.) Clinical Status (Recent): Hopelessness, Substance abuse or dependence, Agitation or severe anxiety,Major depressive episode, Perceived burden on family or [...] intoxication. Patient denies plan, intent, or method butreports more increased feelings of depression and sadness. Patient denies recent or past history ofSIB. Patient has mental health diagnosis depression anxiety. Patient denies being on any medicationfor mental health needs. Patient has previous engagement with outpatient mental health providers but denies any current treatment. Plan: [facility] patient will continue work together to establish appropriate aftercare plans based on patient sobriety, needs, resources available in the local community. Patient encouraged to engage in all activities that are offered to them while they are on the unit.Patient report needing additional current time. Patient encouraged to seek out [facility] unit staff should they identify any additional [...] to contact the dictating provider for clarification. * ED Attestation Note - Johnny Hamilton DO - 05/07/2024 6:38 PM EST Emergency Department Encounter [facility] ED Patient: Maria De Jesus Hogan : [...] distress, resting comfortably, having some rock machelle berny sandwich during exam. He has no tremors, [...] by the LENY. For all further details ofthe patient's emergency department visit, please see their documentation. (Comment: Please note this report has been produced using speech recognition software and may contain errors related to that system including errors in grammar, punctuation, and spelling, as well as words and phrases that may be inappropriate. If there are any questions or concerns please feel freeto contact the dictating provider for clarification.) Johnny Hamilton DO [employer] Johnny Hamilton DO 05/07/242305 documented in this [facility]02-08-2025 History of Present illness Narrative* Arturo Parry, EDUCATIONAL ASSISTANT - 05/09/2024 9:18 AM EST Images from the original note were not included. [facility] Smoking Cessation Progress [...] contact information explained and given to patient. * Jazlyn Huggins - 05/09/2024 7:58 AM EST Nutrition rescreen completed. Patient assigned a level 1. * Arturo Parry RRT - 05/08/2024 12:59 PM EST Patient sleeping comfortably, will attempt smoking cessation counseling another time. documented in this [facility]02-08-2025 Nurse Note* Evelyn Abad RN - 05/09/2024 12:07 AM EST Patient is up and steady, withdrawn to room for majority of shift. Pt is cooperative and med compliant. Pt denies SI/HI/AVH. Pt encouraged to notify staff for any questions and concerns. [facility] [id number] Nurse Note* Nanette De Santiago RN - 05/08/2024 3:52 PM EST Patient received asleep in room at shift [...] Patient denies S.I.,H.I.,AH/VH/TH. Continue to monitor patient. [facility] [id number] History and physical note* Jonatan Mckeon MD - 05/08/2024 1:01 PM EST Images from the original note were not included. [facility]DI[facility]IC[facility] DETOX UNIT H&P Patient: Maria De Jesus Hogan Admit Date: 05/07/2024 Primary Care Physician: Lynda Rasheed MD __ HISTORY OF PRESENT ILLNESS Chief Complaint Patient presents with Alcohol Problem Patient presents for detox from alcohol. 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 Maria De Jesus Hogan [...] is also complaining of paresthesias in hands/feet. Hedoes get gabapentin prescribed for this, which I confirmed in [facility] and have restarted. He shows minimal motivation to be sober and has no clear plan for sobriety. I recommended he attendinpatient residential treatment at this point for alcoholism given numerous admissions, recidivism,and inability to remain sober in the community [...] I just want to get better Per [facility] assessment: Patient first drank alcohol when he [...] Patient does have extensive history of falls whileintoxicated. Patient denies any history of MAT engagement. Patient reports his longest period of sobriety was 6 months. Patient has previous history of detox occurring on 01/23/2024, 07/27/2023, 07/08/2023, 02/08/2023, 05/20/2023 (medical), 10/25/2021, 02/15/2021(left AMA), 06/09/20, 10/01/19, 08/31/19 (left AMA), 2016 (left AMA), and 2014 (left AMA). He denies hist ory of residential treatment Patient reports previous history [...] CYST REMOVAL face EGD (HISTORICAL) 07/23/2022 Dr. Estrella-[facility] SMALL INTESTINE SURGERY UPPER GASTROINTESTINAL ENDOSCOPY 09/27/2021 normal WISDOM TOOTH EXTRACTION Family History Family History Problem Relation Name Age of Onset Depression Sister Maria De Jesus Hogan Other ([id number]) Sister Maria De Jesus Hogan agoraphobia Arthritis Sister Maria De Jesus Hogan Cancer Mother Maria De Jesus Hogan colon rectal cancer; dx after age 50 Other ([id number]) Mother Maria De Jesus Hogan alcoholism Alcohol abuse Mother Maria De Jesus Hoagn Stroke Mother Maria De Jesus Hogan Other ([id number]) Father Maria De Jesus Hogan h/o rheumatic fever, cardiac arrest due to bee sting Hypertension Father Maria De Jesus Hogan [employer] Tobacco Use: High Risk (05/07/2024) Patient History [...] 0 min Stress: Stress Concern Present (05/08/2024) [employer] [place] [facility] [employer] [facility] - Occupational Stress Questionnaire Feeling of Stress : To some extent Social Connections: Socially Isolated (05/08/2024) Social Connection and Isolation Panel [NHANES] Frequency of Communication with Friends and Family: Twice a week Frequency of Social Gatherings with Friends and Family: Never Attends Taoist Services: Never Active Member of Clubs or [...] Last Year: No Utilities: At Risk (05/08/2024) [facility] Utilities Threatened with loss of utilities: [...] depression, hallucinations and suicidal ideas. The patient hasinsomnia and is nervous/anxious. EXAM Vitals Vitals: 05/08/24 [...] Electronically Signed On 01-20-2024 19:55:10 EDT by Berna BRADSHAW Recent Results (from the past 48 [...] PRN medications: acetaminophen, albuterol, aluminum & magnesium hydroxide- simethicone, hydrOXYzine pamoate, loperamide, LORazepam, magnesium hydroxide, nicotine [...] this unit - I don't feel this isappropriate. Elevated liver enzymes Fatty liver Likely 2/2 [...] chemical dependency related issues. This included a faceto face evaluation and physical examination, and coordinating care on a substance use disorder treatment plan as well as documenting clinical information on the day of visit. [facility] [id number] [facility]02-07-2025 History and physical note* Jonatan Mckeon MD - 05/08/2024 1:01 PM EST Images from the original note were not included. ADDICTION MEDICINE 4E DETOX UNIT H&P Patient: Maria De Jesus Hogan Admit Date: 05/07/2024 Primary Care Physician: Lynda Rasheed MD __ HISTORY OF PRESENT ILLNESS Chief Complaint Patient presents with Alcohol Problem Patient presents for detox from alcohol. 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 Maria De Jesus Hogan [...] is also complaining of paresthesias in hands/feet. Hedoes get gabapentin prescribed for this, which I confirmed in [facility] and have restarted. He shows minimal motivation to be sober and has no clear plan for sobriety. I recommended he attendinpatient residential treatment at this point for alcoholism given numerous admissions, recidivism,and inability to remain sober in the community [...] I just want to get better Per [facility] assessment: Patient first drank alcohol when he [...] Patient does have extensive history of falls whileintoxicated. Patient denies any history of MAT engagement. Patient reports his longest period of sobriety was 6 months. Patient has previous history of detox occurring on 01/23/2024, 07/27/2023, 07/08/2023, 02/08/2023, 05/20/2023 (medical), 10/25/2021, 02/15/2021(left AMA), 06/09/20, 10/01/19, 08/31/19 (left AMA), 2016 (left AMA), and 2014 (left AMA). He denies hist ory of residential treatment Patient reports previous history [...] [facility]. [facility] but [...] CYST REMOVAL face EGD (HISTORICAL) 07/23/2022 Dr. Estrella-[facility] SMALL INTESTINE SURGERY UPPER GASTROINTESTINAL ENDOSCOPY 09/27/2021 normal WISDOM TOOTH EXTRACTION Family History Family History Problem Relation Name Age of Onset Depression Sister Maria De Jesus Hogan Other ([id number]) Sister Maria De Jesus Hogan agoraphobia Arthritis Sister Maria De Jesus Hogan Cancer Mother Maria De Jesus Hogan colon rectal cancer; dx after age 50 Other ([id number]) Mother Maria De Jesus Hogan alcoholism Alcohol abuse Mother Maria De Jesus Hogan Stroke Mother Maria De Jesus Hogan Other ([id number]) Father Maria De Jesus Hogan h/o rheumatic fever, cardiac arrest due to bee sting Hypertension Father Maria De Jesus Hogan [employer] Tobacco Use: High Risk (05/07/2024) Patient History [...] 0 min Stress: Stress Concern Present (05/08/2024) [employer] [place] [employer] - Occupational Stress Questionnaire Feeling of Stress : To some extent Social Connections: Socially Isolated (05/08/2024) Social Connection and Isolation Panel [NHANES] Frequency of Communication with Friends and Family: Twice a week Frequency of Social Gatherings with Friends and Family: Never Attends Taoist Services: Never Active Member of Clubs or [...] Last Year: No Utilities: At Risk (05/08/2024) [facility] Utilities Threatened with loss of utilities: [...] depression, hallucinations and suicidal ideas. The patient hasinsomnia and is nervous/anxious. EXAM Vitals Vitals: 05/08/24 [...] Electronically Signed On 01-20-2024 19:55:10 EDT by Berna BRADSHAW Recent Results (from the past 48 [...] PRN medications: acetaminophen, albuterol, aluminum & magnesium hydroxide- simethicone, hydrOXYzine pamoate, loperamide, LORazepam, magnesium hydroxide, nicotine [...] this unit - I don't feel this isappropriate. Elevated liver enzymes Fatty liver Likely 2/2 [...] chemical dependency related issues. This included a faceto face evaluation and physical examination, and coordinating care on a substance use disorder treatment plan as well as documenting clinical information on the day of visit. documented in this [facility]02-07-2025 NotePatient sleeping comfortably, will attempt smoking cessation counseling another time.[facility]02-07-2025 Nurse Note* Nanette De Santiago RN - 05/08/2024 12:05 PM EST Medication rec. Done with Jace escobedo [facility] at 1200. [facility] [id number] Nurse Note* Nanette De Santiago RN - 05/08/2024 8:53 AM EST Patient received Nicotine Lozenge PRN as per orders at 0850. [facility] [id number] Hospital Discharge instructions* Discharge Instr - Other Orders* JEREMY Solis - 05/08/2024 8:23 AM EST After detox you should abstain from any use of any mood altering chemical Appointment with your primary care physician should be scheduled It is highly recommended that you attend post hospital treatment Please read the information give to you - Intro to 12 step programs Call the National Suicide Prevention Hotline if needed at: 9-843-134-YZNR (4291) Please call the following number should you have questions regarding your discharge or aftercare appointments: [facility] documented in this [facility]02-07-2025 Note* Care Coordination - JEREMY Solis - 05/08/2024 8:21 AM EST Behavioral Health Psycho-Social Assessment (Social Work) Date: [...] an extensive history of passive SI secondary tointoxication. Patient denies plan, intent, or method but reports more increased feelings of depression and sadness. Patient denies recent or past history of SIB. Substance Abuse/Use: Patient reports that he is currently drinking upwards of 9, 24 ounce Natty Daddy beers daily. Patient reports his last drink was 05/07/2024. Patient labs are positive for alcohol(0.351) and barbitutaes. Patient first drank alcohol when [...] Patient does have extensive history of falls whileintoxicated. Patient denies any history of MAT engagement. Patient reports his longest period of sobriety was 6 months. Patient has previous history of detox occurring on 01/23/2024, 07/27/2023, 07/08/2023, 02/08/2023, 05/20/2023 (medical), 10/25/2021, 02/15/2021(left AMA), 06/09/20, 10/01/19, 08/31/19 (left AMA), 2016 (left AMA), and 2014 (left AMA). He denies hist ory of residential treatment Patient reports previous history [...] poor nutrition and sleep secondary to his gomez bstance use. Legal/Trauma/ History: Patient denies any current legal issues. Patient reports past legal history of child support violations. Patient denies any history of childhood abuse. Patient does report however his father when he was 11 years old which was a traumatic incident to him. Patient denies any history of trauma abuse as an adult. Patient denies any history Orbisonia or status. Family Constellation/Childhood History: Patient reports that he is currently to his living in [facility]. Patient reports that he has 3 biological children and 4 stepchildren. Patient reports that his father in his 11 years old. Patient did not report his mother is stillalive currently. Patient was born and raised in [place], [place] by his mother and father. He reports that his father when he was 11 years old, and this was traumatic for him. Patient reports that he was raisedprimarily by his mother for the remainder of his childhood. He denies childhood abuse. Education/Work: Patient reports that he graduated high school. 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 Patient denies SSI/SSD. Cultural/Spirituality/Leisure: Patient denies any cultural needs or concerns at the current time. Patient denies identify any sikhism preference. It is unknown if patient is [...] plan, intent, or method but reports more increasedfeelings of depression and sadness.) Activating Events (Recent): Current or pending isolation or feeling alone, Recent loss(es) or othersignificant negative event(s) (legal, financial, relationship, etc.) Describe:: Ongoing struggles with substance use Treatment History: Previous psychiatric diagnoses and treatments, Non-compliant with treatment, [facility] (Patient has mental health diagnosis depression anxiety. Patient denies being on any medication for mental health needs. Patient has previous engagement with outpatient mental health providers but denies any current treatment.) Clinical Status (Recent): Hopelessness, Substance abuse or dependence, Agitation or severe anxiety,Major depressive episode, Perceived burden on family or [...] intoxication. Patient denies plan, intent, or method butreports more increased feelings of depression and sadness. Patient denies recent or past history ofSIB. Patient has mental health diagnosis depression anxiety. Patient denies being on any medicationfor mental health needs. Patient has previous engagement with outpatient mental health providers but denies any current treatment. Plan: [facility] patient will continue work together to establish appropriate aftercare plans based on patient sobriety, needs, resources available in the local community. Patient encouraged to engage in all activities that are offered to them while they are on the unit.Patient report needing additional current time. Patient encouraged to seek out [facility] unit staff should they identify any additional [...] to contact the dictating provider for clarification. [facility] [id number] Note* Care Coordination - JEREMY Solis - 05/08/2024 8:21 AM EST Behavioral Health Psycho-Social Assessment (Social Work) Date: [...] an extensive history of passive SI secondary tointoxication. Patient denies plan, intent, or method but reports more increased feelings of depression and sadness. Patient denies recent or past history of SIB. Substance Abuse/Use: Patient reports that he is currently drinking upwards of 9, 24 ounce Natty Daddy beers daily. Patient reports his last drink was 05/07/2024. Patient labs are positive for alcohol(0.351) and barbitutaes. Patient first drank alcohol when [...] Patient does have extensive history of falls whileintoxicated. Patient denies any history of MAT engagement. Patient reports his longest period of sobriety was 6 months. Patient has previous history of detox occurring on 01/23/2024, 07/27/2023, 07/08/2023, 02/08/2023, 05/20/2023 (medical), 10/25/2021, 02/15/2021(left AMA), 06/09/20, 10/01/19, 08/31/19 (left AMA), 2016 (left AMA), and 2014 (left AMA). He denies hist ory of residential treatment Patient reports previous history [...] poor nutrition and sleep secondary to his gomez bstance use. Legal/Trauma/ History: Patient denies any current legal issues. Patient reports past legal history of child support violations. Patient denies any history of childhood abuse. Patient does report however his father when he was 11 years old which was a traumatic incident to him. Patient denies any history of trauma abuse as an adult. Patient denies any history Orbisonia or status. Family Constellation/Childhood History: Patient reports that he is currently to his living in [facility]. Patient reports that he has 3 biological children and 4 stepchildren. Patient reports that his father in his 11 years old. Patient did not report his mother is stillalive currently. Patient was born and raised in [place], [place] by his mother and father. He reports that his father when he was 11 years old, and this was traumatic for him. Patient reports that he was raisedprimarily by his mother for the remainder of his childhood. He denies childhood abuse. Education/Work: Patient reports that he graduated high school. 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 Patient denies SSI/SSD. Cultural/Spirituality/Leisure: Patient denies any cultural needs or concerns at the current time. Patient denies identify any sikhism preference. It is unknown if patient is [...] plan, intent, or method but reports more increasedfeelings of depression and sadness.) Activating Events (Recent): Current or pending isolation or feeling alone, Recent loss(es) or othersignificant negative event(s) (legal, financial, relationship, etc.) Describe:: Ongoing struggles with substance use Treatment History: Previous psychiatric diagnoses and treatments, Non-compliant with treatment, [facility] (Patient has mental health diagnosis depression anxiety. Patient denies being on any medication for mental health needs. Patient has previous engagement with outpatient mental health providers but denies any current treatment.) Clinical Status (Recent): Hopelessness, Substance abuse or dependence, Agitation or severe anxiety,Major depressive episode, Perceived burden on family or [...] intoxication. Patient denies plan, intent, or method butreports more increased feelings of depression and sadness. Patient denies recent or past history ofSIB. Patient has mental health diagnosis depression anxiety. Patient denies being on any medicationfor mental health needs. Patient has previous engagement with outpatient mental health providers but denies any current treatment. Plan: [facility] patient will continue work together to establish appropriate aftercare plans based on patient sobriety, needs, resources available in the local community. Patient encouraged to engage in all activities that are offered to them while they are on the unit.Patient report needing additional current time. Patient encouraged to seek out [facility] unit staff should they identify any additional [...] to contact the dictating provider for clarification. [facility] Wqhwhn05-27-2875 Nurse Note* Evelyn Abad RN - 05/08/2024 2:03 AM EST Patient arrived on unit from [facility] by stretcher. Pt's belongings secured by protective [...] notify staff for any questions and concerns. [facility] Gasrko69-82-1833 Emergency department Note* Kirsty Hawley RN - 05/08/2024 1:08 AM EST Report to Evelyn THOMPSON at [facility] on 4E [facility] Cldlcx09-19-4984 Emergency department Note* Kirsty Hawley RN - 05/08/2024 1:08 AM EST Report to Evelyn THOMPSON at [facility] on 4E * Papito Ruiz RN - 05/08/2024 12:50 AM EST Report to [facility] at bedside. Vitals taken. Protective at bedside for final wanding. Belongings, detox rules and paperwork sent with patient/EMS * Kirsty Hawley RN - 05/07/2024 10:35 PM EST Security at bedside for a belongings check * Catalino Quintero RN - 05/07/2024 9:11 PM EST The following are the next steps in your Substance use Treatment Plan: Below are additional resources that you may find beneficial in your treatment: 12-Step: Alcohol Anonymous: akronaa.org Brennon Anon: [phone]: 12-step program for families & friends of people with addiction. CRISIS: Homeless Hotline: 897.900.1850 [facility] [facility] ([facility]) 22/10 line-22/10 OFFICE: [phone] [facility]: [address] [place] [address] [phone] (24 Hours) Domestic Violence help line anytime: 164.444.9734 Crisis Hotline: 22/10- 930.380.5247 [facility] Addiction Helpline: 131.262.8163 (available 8:30 AM to 4:00 PM ) 2-1-1 2-1-1 helps people across [facility] find local resources when they don't know where to turn forhelp. We are available 24 hours a day, 7 days a week. For help, simply dial -- to speak to one of our trained professionals. DETOX TREATMENT: [place], [place] [phone] /[facility] Crisis Center: anytime @ [phone] for alcohol & drug addiction help. [facility], [place], [place] [phone] [facility] [place]: [phone] [facility], [place], [place]: [phone], [place], [place]: [phone] [facility], [place] [phone] Adolescent detox [place], [place] [phone] [facility] [place] - [place], [place]: [phone] [facility], [place], [place] [phone] ext. [phone] [facility], [place], [place] BH & detox & Sober living [phone] [place], [place] (pt. must be medically cleared prior to admission in ED) [facility], [place], [place] [phone] OUTPATIENT TREATMENT: [facility] Addiction [facility] @ Kane Cramer [place] [phone]. Intensive Outpatient Programs- [facility] [place], [place] [phone] [place], [place] [phone] [facility] Yohan [place], [place] [phone] [facility] Addiction Treatment: [place], [place] [phone] or [phone]. [facility]: [phone] [facility], [place], [facility], [place]: [phone], [place]: [phone] [facility] [place]: [phone] [facility], [place], [place]: [phone] [facility], [place]: [phone], [place]: [phone] Yohan Dominguez. [place]: [phone] [facility] [place] BH & Sober living [phone] [place], [place] [phone] Behavioral Health Services: [facility]: [phone], [phone], [place]- [phone] [facility], [place]: [phone], [place]: [phone] [facility] Health, [place], [place] [phone] [facility], [place], [place] [phone] [facility] Health, [place], [place] [phone], inpt, services, dual dx. Tx. with detox. [facility]: [place], [place] [phone] [facility], [place], [place] [phone] [facility] [phone] [facility] SERVICES: One Eighty (180): [place], [place] [phone] [facility] Baldo SHEETS & [place]: [phone] RESIDENTIAL TREATMENT FACILITIES: [facility]: inpt. Or outpt. - [phone] [facility], [place], [place] [phone] [place], [place] [phone] [facility] Treatment Services (CATS) @ [facility] [phone] [facility] tx., [place], [place] [phone] (admission coordinated by ADM Gurvinder Landers ext [phone]) [facility] Tx., [place], [place]: [phone]; Men's services inpt. & women services -Outpt. [place], [place] [phone] Critical [facility] hospital [facility], [place], [place] [phone] [facility]'s [place], [place] [phone] [facility], [place], [place] [phone] [facility], [place], [place] [phone] [facility] - [place], [place] [phone] [facility], [place], [place] [phone] [place], [place] [phone] [facility], [facility] & detox & Sober living [phone] OTHER SERVICES: [employer]appit - [employer] Manufacturing Supervisor Service: [phone] [facility]: [phone] ext. [phone] Medicaid Health Coverage: Bong Nv[employer]uc [facility]: [phone] * Kirsty Hawley RN - 05/07/2024 8:[address] Hamilton at bedside speaking with pt. * JUAN Lang CNP - 05/07/2024 6:38 PM EST EMERGENCY DEPARTMENT ENCOUNTER Pt Name: Maria De Jesus Hogan Birthdate 1965 Date of evaluation: 05/07/2024 ED Provider: JUAN Lang CNP This patient was seen in conjunction with Dr. Hamilton CHIEF COMPLAINT Chief Complaint Patient presents with Alcohol Problem Patient presents for detox from alcohol. 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 HISTORY OF PRESENT ILLNESS [...] CYST REMOVAL face EGD (HISTORICAL) 07/23/2022 Dr. Estrella-[facility] SMALL INTESTINE SURGERY UPPER GASTROINTESTINAL ENDOSCOPY 09/27/2021 [...] Depression Sister Maria De Jesus Hogan Other ([id number]) Sister Maria De Jesus Hogan agoraphobia Arthritis Sister Maria De Jesus Hogan Cancer Mother Maria De Jesus Hogan colon rectal cancer; dx after age 50 Other ([id number]) Mother Maria De Jesus Hogan alcoholism Alcohol abuse Mother Maria De Jesus Hogan Stroke Mother Maria De Jesus Hogan Other ([id number]) Father Maria De Jesus Hogan h/o rheumatic [...] min Stress: No Stress Concern Present (01/20/2024) [employer] [place] [employer] - Occupational Stress Questionnaire Feeling of Stress : Not at all Social Connections: Unknown (01/28/2024) Social Connection and Isolation Panel [NHANES] Frequency of Communication with Friends and Family: Twice a week Frequency of Social Gatherings with Friends and Family: Patient unable to answer Attends Taoist Services: Never Active Member of Clubs or Organizations: No Attends Club or Organization Meetings: Never Marital Status: Recent Concern: Social Connections - Socially Isolated (01/20/2024) Social Connection and Isolation Panel [NHANES] Frequency of Communication with Friends and Family: Never Frequency of Social Gatherings with Friends and Family: Never Attends Taoist Services: Never Active Member of Clubs or [...] are any questions or concerns please feel freeto contact the dictating provider for clarification.) JUAN Lang CNP (electronically signed) Emergency Medicine Provider JUAN Lang CNP 05/07/242004 Cosigned by Johnny Hamilton DO at 05/07/2024 11:06 PM EST documented in this [facility]02-07-2025 Emergency department Note* Papito Ruiz RN - 05/08/2024 12:50 AM EST [facility] at bedside. Vitals taken. Protective at bedside for final wanding. Belongings, detox rules and paperwork sent with patient/EMS [facility]-8170 Emergency department Note* Kirsty Hawley RN - 05/07/2024 10:35 PM EST Security at bedside for a belongings check [address]06-2025 Emergency department Note* Catalino Quintero RN - 05/07/2024 9:11 PM EST The following are the next steps in your Substance use Treatment Plan: Below are additional resources that you may find beneficial in your treatment: 12-Step: Alcohol Anonymous: akronaa.org Brennon Anon: [phone]: 12-step program for families & friends of people with addiction. CRISIS: Homeless Hotline: 809.156.1503 [facility] [place] [facility] 24/7 line-22/10 OFFICE: [phone] [facility]: [address] [facility], [place] [address] [phone] (24 Hours) Domestic Violence help line anytime: 583.673.3680 Crisis Hotline: 22/10- 216.658.2278 [facility] Addiction Helpline: 475.250.6117 (available 8:30 AM to 4:00 PM ) 2--1 2-1-1 helps people across [facility] find local resources when they don't know where to turn forhelp. We are available 24 hours a day, 7 days a week. For help, simply dial to speak to one of our trained professionals. DETOX TREATMENT: Sandra Garcia [facility], [place], [place] [phone] /[facility] Crisis Center: anytime @ [phone] for alcohol & drug addiction help. [facility], [place], [place] [phone] [facility] [place]: [phone] [place]: [phone], [facility] [place]: [phone] [place] [phone] Adolescent detox [place], [place] [phone] [facility] [place]: [phone] [facility], [place], [place] [phone] ext. [phone] [facility], [facility] & detox & Sober living [phone] [place], [place] (pt. must be medically cleared prior to admission in ED) [facility], [place], [place] [phone] OUTPATIENT TREATMENT: [facility] Addiction Health @ Kane Cramer [place] [phone]. Intensive Outpatient Programs- [facility] [place], [place] [phone] [place], [place] [phone] [facility] [place], [place] [phone] [facility] Addiction Treatment: [place], [place] [phone] or [phone]. [facility]: [phone] [facility], [place], [facility], [place]: [phone], [place]: [phone] [facility], [place], [place]: [phone] [facility], [place], [place]: [phone] [facility], [place]: [phone], [place]: [phone] Y[place] Doming[place]. [place]: [phone] [facility], [facility] & Sober living [phone] [facility], [place], [place] [phone] Behavioral Health Services: [facility] Health Services: [place]-[phone], [place]-[phone], [place]- [phone] [facility], [place]: [phone], [place]: [phone] [facility] Behavioral Health, [place], [place] [phone] [facility], [place], [place] [phone] [facility], [place], [place] [phone], mady services, dual dx. Tx. with detox. [facility]: [place], [place] [phone] [place], [place] [phone] [facility] [phone] [facility] SERVICES: One [employer] (180): [place] [phone] Nam[place] SHEETS & [place]: [phone] RESIDENTIAL TREATMENT FACILITIES: [facility]: inpt. Or outpt. - [phone] [facility], [place], [place] [phone] [facility], [place], [place] [phone] [facility] Treatment [facility] (CATS) @ [facility] [phone] [facility] tx., [place], [place] [phone] (admission coordinated by ADM Gurvinder Landers ext [phone]) [facility] [place], [place]: [phone]; Men's services inpt. & women services -Outpt. [facility], [place], [place] [phone] [facility], [place], [place] [phone] [facility]'s [facility]idential, [place], [place] [phone] [facility], [place], [place] [phone] [facility], [place], [place] [phone] [facility] - [place], [place] [phone] [facility], [place], [place] [phone] [place], [place] [phone] [facility], [facility] & detox & Sober living [phone] OTHER SERVICES: [employer] - [employer] Supervisor Service: [phone] [facility]: [phone] ext. [phone] Medicaid Health Coverage: [employer] JFS: [phone] [facility] HospitalVwyhqw69-26-5098 Emergency department Note* Kirsty Hawley RN - 05/07/2024 8:[address] Hamilton at bedside speaking with pt. [facility] HospitalZacdvf86-52-3122 Note* ED Attestation Note - Johnny Hamilton DO - 05/07/2024 6:38 PM EST Emergency Department Encounter [facility] ED Patient: Maria De Jesus Hogan : [...] distress, resting comfortably, having some rock machelle berny sandwich during exam. He has no tremors, [...] by the LENY. For all further details ofthe patient's emergency department visit, please see their documentation. (Comment: Please note this report has been produced using speech recognition software and may contain errors related to that system including errors in grammar, punctuation, and spelling, as well as words and phrases that may be inappropriate. If there are any questions or concerns please feel freeto contact the dictating provider for clarification.) Johnny Hamilton DO [employer] Johnny Hamilton DO 05/07/24 2306 [employer] Phone: 1(587) 947-850902-06-2025 Note* ED Attestation Note - Johnny Hamilton DO - 05/07/2024 6:38 PM EST Emergency Department Encounter [facility] ED Patient: Maria De Jesus Hogan : [...] distress, resting comfortably, having some rock machelle berny sandwich during exam. He has no tremors, [...] remained stable here. Diagnoses as of 05/07/24 2306 Alcohol use disorder Alcohol withdrawal syndrome with complication, with unspecified complication (HCC) All diagnostic, treatment, and disposition decisions were made by myself in conjunction with the LENY. I also supervised laboy portions of any procedures performed by the LENY. For all further details ofthe patient's emergency department visit, please see their documentation. (Comment: Please note this report has been produced using speech recognition software and may contain errors related to that system including errors in grammar, punctuation, and spelling, as well as words and phrases that may be inappropriate. If there are any questions or concerns please feel freeto contact the dictating provider for clarification.) Johnny Hamilton DO [employer] Johnny Hamilton DO 05/07/24 2306 [employer] Phone: 1(235) 206-374202-06-2025 Physician Emergency department Note* Shelly TriciaJUAN emerson CNP - 05/07/2024 6:38 PM EST EMERGENCY DEPARTMENT ENCOUNTER Pt Name: Maria De Jesus Hogan Birthdate 1965 Date of evaluation: 05/07/2024 ED Provider: JUAN Lang CNP This patient was seen in conjunction with Dr. Hamilton CHIEF COMPLAINT Chief Complaint Patient presents with Alcohol Problem Patient presents for detox from alcohol. 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 HISTORY OF PRESENT ILLNESS [...] CYST REMOVAL face EGD (HISTORICAL) 07/23/2022 Dr. Estrella-[facility] SMALL INTESTINE SURGERY UPPER GASTROINTESTINAL ENDOSCOPY 09/27/2021 [...] Depression Sister Maria De Jesus Hogan Other (10011) Sister Maria De Jesus Hogan agoraphobia Arthritis Sister Maria De Jesus Hogan Cancer Mother Maria De Jesus Hogan colon rectal cancer; dx after age 50 Other ([id number]) Mother Maria De Jesus Hogan alcoholism Alcohol abuse Mother Maria De Jesus Hogan Stroke Mother Maria De Jesus Hogan Other (99444) Father Maria De Jesus Hogan h/o rheumatic [...] min Stress: No Stress Concern Present (01/20/2024) [employer] [place] [employer] - Occupational Stress Questionnaire Feeling of Stress : Not at all Social Connections: Unknown (01/28/2024) Social Connection and Isolation Panel [NHANES] Frequency of Communication with Friends and Family: Twice a week Frequency of Social Gatherings with Friends and Family: Patient unable to answer Attends Taoist Services: Never Active Member of Clubs or Organizations: No Attends Club or Organization Meetings: Never Marital Status: Recent Concern: Social Connections - Socially Isolated (01/20/2024) Social Connection and Isolation Panel [NHANES] Frequency of Communication with Friends and Family: Never Frequency of Social Gatherings with Friends and Family: Never Attends Taoist Services: Never Active Member of Clubs or [...] are any questions or concerns please feel freeto contact the dictating provider for clarification.) JUAN Lang CNP (electronically signed) Emergency Medicine Provider JUAN Lang CNP 05/07/242004 Cosigned by Johnny Hamilton DO at 05/07/2024 11:06 PM EST [facility] Work Phone: 1(895) 480-322801-21-2025 NoteLVM letting the patient know they were referred for smoking cessation counseling. Gave contact information, will provide follow up. Letter & education mailed to the home address.[facility]01-12-2025 [facility]01-12-2025 Plan of care note* Care Plan - Ceci Sandy RN - 04/12/2024 8:49 AM EST Problem: Pain - Adult Goal: Verbalizes/displays adequate comfort level or baseline comfort level Outcome: Completed Problem: Safety - Adult Goal: Free from fall injury Outcome: Completed Problem: Problem Interventions Goal: Assess Nutritional Intake Outcome: Completed [facility] HospitalPwrrjg79-00-7609 Miscellaneous Notes* Care Plan - Ceci Sandy RN - 04/12/2024 8:49 AM EST Problem: Pain - Adult Goal: Verbalizes/displays adequate comfort level or baseline comfort level Outcome: Completed Problem: Safety - Adult Goal: Free from fall injury Outcome: Completed Problem: Problem Interventions Goal: Assess Nutritional Intake Outcome: Completed * Care Plan - Rita Adan RN - 04/12/2024 3:04 AM EST Pt educated about his plan of care * Care Lian - Ceci Sandy RN - 04/11/2024 6:08 PM EST Problem: Pain - Adult Goal: Verbalizes/displays adequate comfort level or baseline comfort level Outcome: Progressing Problem: Safety - Adult Goal: Free from fall injury Outcome: Progressing Problem: Problem Interventions Goal: Assess Nutritional Intake Outcome: Progressing * Care Plan - Esteban Ocampo RN - 04/11/2024 4:56 AM EST Problem: Pain - Adult Goal: Verbalizes/displays adequate comfort level or baseline comfort level Outcome: Progressing Flowsheets (Taken 04/11/2024 0456) Verbalizes/displays adequate comfort level or baseline comfort level: Encourage patient to monitor pain and request assistance Assess pain using appropriate pain scale Problem: Safety - Adult Goal: Free from fall injury Outcome: Progressing documented in this [facility]01-12-2025 History of Present illness Narrative* Luis Branch MD - 04/12/2024 7:00 AM EST Images from the original note were not included. ADDICTION MEDICINE PROGRESS NOTE Patient: Maria De Jesus Hogan __ Problem List: Principal Problem: Alcoholic intoxication without complication (CMS/HCC) (HCC) SUBJECTIVE Chief Complaint Patient presents with Alcohol Problem Patient seeking detox from ETOH. 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 Last 4 CIwA scores per RN assessments [...] albuterol, dicyclomine, hydrOXYzine pamoate, ibuprofen, LORazepam OR LORazepamOR LORazepam OR LORazepam OR [DISCONTINUED] LORazepam OR [...] of ETOH was on the way to [facility] ED. Phenobarbital taper to manage ETOH withdrawal [...] IM and ADM Labs/tests/tasks to review: N/A Production Cook to coordinate care with: N/A. A total of 35 minutes were spent reviewing the patient's records, evaluating the patient, entering orders, coordinating care with the treatment team, and creating this note. * Nanette Munson RD - 04/11/2024 4:27 PM EST Nutrition Assessment Type and Reason for Visit: Initial, Positive Nutrition Screen Nutrition Recommendations/Plan: Per mnt protocol will modify diet to ROGELIO -per pt request Please continue to record meal intakes in RN Flowsheets MVI, folic acid, thiamine per MD RD to monitor po intake, labs, weight [...] loss Fluid Accumulation: No significant fluid accumulation Application Designer Strength: Not Performed Nutrition Assessment: 58 y.o. [...] requesting to have discontinued. pmhx includes CVA, alcoholabuse, HTN, GERD. Pt states likely discharge tomorrow Estimated Daily Nutrient Needs: Energy Requirements Based On: Kcal/kg Weight Used for Energy Requirements: [place] Weight for Energy Calculation (kg): 78 kg Total Energy Requirements (kcals/day): 9921-2849 (25-30) Weight Used for Protein Requirements: [place] Weight in Kg Used for Protein Requirements: [...] (235 lb) % Weight Change (Calculated): -4.3 [place] Body Weight (lbs) (Calculated): 172 lbs [place] Body Weight (Kg) (Calculated): 78 kg % [place] Body Weight (Calculated): 130.8 % BMI (kg/m2) [...] Weight Discharge Planning: Nanette Munson RD Contact: *[phone] or via Secure Chat * Redd Teixeira MD - 04/11/2024 2:22 PM EST Hospitalist Progress Note 04/11/2024 [phone]: Please page me ([phone]) for patient care issues. [phone]: Please page [facility] night Hospitalist for any issues. Subjective: Admit Date: 04/09/2024 PCP: Lynda Rasheed MD Room#: [id number] A Interval History: Patient is sleeping comfortably, no signs of distress noticed No other significant overnight issues. Adult diet Regular; Low Sodium (2 gm) @OKEM4SCHOEZ@ 24HR INTAKE/OUTPUT: Intake/Output Summary (Last 24 hours) [...] without any focal sensory/motor deficits. Cranial nerves: II-XIIintact, grossly non-focal. Medications: clobetasol, , Topical, BID [...] MD Division of Hospitalist Medicine Inpatient Medical Services/[facility]: [phone] * Luis Branch MD - 04/11/2024 7:16 AM EST Images from the original note were not included. ADDICTION MEDICINE PROGRESS NOTE Patient: Maria De Jesus Hogan __ Problem List: Principal Problem: Alcoholic intoxication without complication (CMS/HCC) (HCC) SUBJECTIVE Chief Complaint Patient presents with Alcohol Problem Patient seeking detox from ETOH. 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 Last 4 CIWA scores per RN assessments [...] noted above. OBJECTIVE Vitals Vitals: 04/10/24 1947 04/10/24203204/11/24 0000 04/11/24 0339 BP: (!) 160/101 138/90 [...] albuterol, dicyclomine, hydrOXYzine pamoate, ibuprofen, LORazepam OR LORazepamOR LORazepam OR LORazepam OR [DISCONTINUED] LORazepam OR [...] of ETOH was on the way to [facility] ED. Phenobarbital taper to manage ETOH withdrawal [...] ADM Labs/tests/tasks to review: Lytes and LFTs. Production Cook to coordinate care with: N/A. A total of 35 minutes were spent reviewing the patient's records, evaluating the patient, entering orders, coordinating care with the treatment team, and creating this note. documented in this [facility]01-12-2025 NotePt educated about [facility] Plan of care note* Care Plan - Rita Adan RN - 04/12/2024 3:04 AM EST Pt educated about his plan of care [facility] [id number] Plan of care note* Care Plan - Ceci Sandy RN - 04/11/2024 6:08 PM EST Problem: Pain - Adult Goal: Verbalizes/displays adequate comfort level or baseline comfort level Outcome: Progressing Problem: Safety - Adult Goal: Free from fall injury Outcome: Progressing Problem: Problem Interventions Goal: Assess Nutritional Intake Outcome: Progressing [facility] [id number] Plan of care note* Care Plan - Esteban Ocampo RN - 04/11/2024 4:56 AM EST Problem: Pain - Adult Goal: Verbalizes/displays adequate comfort level or baseline comfort level Outcome: Progressing Flowsheets (Taken 04/11/2024 0527) Verbalizes/displays adequate comfort level or baseline comfort level: Encourage patient to monitor pain and request assistance Assess pain using appropriate pain scale Problem: Safety - Adult Goal: Free from fall injury Outcome: Progressing [facility] [id number] Nurse Note* Kody Keen RN - 04/10/2024 9:43 AM EST Pt refusing to let RN put side rail of ED stretcher up. Pt educated on seizure precautions and dangers with withdrawls. Pt still refusing. Will continue to monitor. [facility] [id number] Nurse Note* Kody Keen RN - 04/10/2024 9:43 AM EST Pt refusing to let RN put side rail of ED stretcher up. Pt educated on seizure precautions and dangers with withdrawls. Pt still refusing. Will continue to monitor. documented in this [facility]01-10-2025 Consult note* Luis Branch MD - 04/10/2024 8:21 AM ESTAssociated Order(s): IP CONSULT TO ADDICTION MEDICINE Images from the original note were not included. ADDICTION MEDICINE CONSULTATION H&P Patient: Maria De Jesus Hogan Admit Date: 04/09/2024 Primary Care Physician: Lynda Rasheed MD Reason for Consultation: AUD withdrawal and management. __ HISTORY OF PRESENT ILLNESS Chief Complaint Patient presents with Alcohol Problem Patient seeking detox from ETOH. 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 The Pt, Mr. Hogan, is a 58 y/o M with a PMHx of Severe AUD, TUD, BPH and Lombardo's esophagus who presented to [facility] on (04/09/24) requesting chemical detox. ADM consulted [...] he has been drinking about a fifth ofliquor and some beers daily since his relapse. [...] but Pt cannot recall where. Detoxifications: x1 [place] [employer] (per Pt). 12 Step Meetings: Has attended [...] CYST REMOVAL face EGD (HISTORICAL) 07/23/2022 Dr. Estrella-[facility] SMALL INTESTINE SURGERY UPPER GASTROINTESTINAL ENDOSCOPY 09/27/2021 normal WISDOM TOOTH EXTRACTION Family History Family History Problem Relation Name Age of Onset Depression Sister Maria De Jesus Hogan Other ([id number]) Sister Maria De Jesus Hogan agoraphobia Arthritis Sister Maria De Jesus Hogan Cancer Mother Maria De Jesus Hogan colon rectal cancer; dx after age 50 Other ([id number]) Mother Maria De Jesus Hogan alcoholism Alcohol abuse Mother Maria De Jesus Hogan Stroke Mother Maria De Jesus Hogan Other ([id number]) Father Maria De Jesus Hogan h/o rheumatic fever, cardiac arrest due to bee sting Hypertension Father Maria De Jesus Hogan Social Drivers of Health Tobacco Use: High Risk (04/09/2024) Patient History [...] min Stress: No Stress Concern Present (01/20/2024) [employer] [place] [employer] - Occupational Stress Questionnaire Feeling of Stress : Not at all Social Connections: Unknown (01/28/2024) Social Connection and Isolation Panel [NHANES] Frequency of Communication with Friends and Family: Twice a week Frequency of Social Gatherings with Friends and Family: Patient unable to answer Attends Taoist Services: Never Active Member of Clubs or Organizations: No Attends Club or Organization Meetings: Never Marital Status: Recent Concern: Social Connections - Socially Isolated (01/20/2024) Social Connection and Isolation Panel [NHANES] Frequency of Communication with Friends and Family: Never Frequency of Social Gatherings with Friends and Family: Never Attends Taoist Services: Never Active Member of Clubs or [...] Year: No Utilities: Not At Risk (01/20/2024) [facility] Utilities Threatened with loss of utilities: [...] 409 ms QTC Interval 493 ms P [place] 65 degrees QRS [place] 59 degrees T Wave [place] 44 degrees RI Interval 162 ms CBC auto differential Collection [...] of ETOH was on the way to [facility] ED. Phenobarbital taper to manage ETOH withdrawal [...] stabilization. Labs/tests/tasks to review: Lytes and LFTs. Production Cook to coordinate care with: N/A. A total of 90 minutes were spent reviewing the patient's records, evaluating the patient, entering orders, coordinating care with the treatment team, and creating this note. 30 minutes reviewing prior records. [facility] [id number] Consult note* Luis Branch MD - 04/10/2024 8:21 AM EST Associated Order(s): IP CONSULT TO ADDICTION MEDICINE Images from the original note were not included. ADDICTION MEDICINE CONSULTATION H&P Patient: Maria De Jesus Hogan Admit Date: 04/09/2024 Primary Care Physician: Lynda Rasheed MD Reason for Consultation: AUD withdrawal and management. __ HISTORY OF PRESENT ILLNESS Chief Complaint Patient presents with Alcohol Problem Patient seeking detox from ETOH. 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 The Pt, Mr. Hogan, is a 58 y/o M with a PMHx of Severe AUD, TUD, BPH and Lombardo's esophagus who presented to [facility] on (04/09/24) requesting chemical detox. ADM consulted [...] he has been drinking about a fifth ofliquor and some beers daily since his relapse. [...] but Pt cannot recall where. Detoxifications: x1 [employer] (per Pt). 12 Step Meetings: Has attended [...] CYST REMOVAL face EGD (HISTORICAL) 07/23/2022 Dr. Estrella-[facility] SMALL INTESTINE SURGERY UPPER GASTROINTESTINAL ENDOSCOPY 09/27/2021 normal WISDOM TOOTH EXTRACTION Family History Family History Problem Relation Name Age of Onset Depression Sister Maria De Jesus Hogan Other ([id number]) Sister Maria De Jesus Hogan agoraphobia Arthritis Sister Maria De Jesus Hogan Cancer Mother Maria De Jesus Hogan colon rectal cancer; dx after age 50 Other ([id number]) Mother Maria De Jesus Hogan alcoholism Alcohol abuse Mother Maria De Jesus Hogan Stroke Mother Maria De Jesus Hogan Other ([id number]) Father Maria De Jesus Hogan h/o rheumatic fever, cardiac arrest due to bee sting Hypertension Father Maria De Jesus Hogan [employer] Tobacco Use: High Risk (04/09/2024) Patient History [...] min Stress: No Stress Concern Present (01/20/2024) [employer] [place] [employer] - Occupational Stress Questionnaire Feeling of Stress : Not at all Social Connections: Unknown (01/28/2024) Social Connection and Isolation Panel [NHANES] Frequency of Communication with Friends and Family: Twice a week Frequency of Social Gatherings with Friends and Family: Patient unable to answer Attends Taoist Services: Never Active Member of Clubs or Organizations: No Attends Club or Organization Meetings: Never Marital Status: Recent Concern: Social Connections - Socially Isolated (01/20/2024) Social Connection and Isolation Panel [NHANES] Frequency of Communication with Friends and Family: Never Frequency of Social Gatherings with Friends and Family: Never Attends Taoist Services: Never Active Member of Clubs or [...] Year: No Utilities: Not At Risk (01/20/2024) [facility] Utilities Threatened with loss of utilities: [...] 409 ms QTC Interval 493 ms P [place] 65 degrees QRS [place] 59 degrees T Wave [place] 44 degrees RI Interval 162 ms CBC auto differential Collection [...] of ETOH was on the way to [facility] ED. Phenobarbital taper to manage ETOH withdrawal [...] stabilization. Labs/tests/tasks to review: Lytes and LFTs. Production Cook to coordinate care with: N/A. A total of 90 minutes were spent reviewing the patient's records, evaluating the patient, entering orders, coordinating care with the treatment team, and creating this note. 30 minutes reviewing prior records. documented in this [facility]01-10-2025 Emergency department Note* Mercedes Kebede RN - 04/10/2024 6:57 AM EST Pt sleeping [facility] [id number] Emergency department Note* Mercedes Kebede RN - 04/10/2024 6:57 AM EST Pt sleeping * Mercedes Kebede RN - 04/10/2024 6:01 AM EST Pt sleeping * Mercedes Kebede RN - 04/10/2024 3:36 AM EST Pt sleeping * Mercedes Kebede RN - 04/10/2024 2:30 AM EST Pt sleeping * Kolby Whiteside DO - 04/09/2024 6:31 PM EST EMERGENCY DEPARTMENT ENCOUNTER Pt Name: Maria De Jesus Hogan Birthdate 1965 Date of evaluation: 04/09/2024 ED Provider: Kolby Whiteside DO CHIEF COMPLAINT Chief Complaint Patient presents with Alcohol Problem Patient seeking detox from ETOH. 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 HISTORY OF PRESENT ILLNESS (Location/Symptom, Timing/Onset, Context/Setting, Quality, Duration, Modifying Factors, Severity) Note limiting factors. I wore appropriate PPE for the entirety of this encounter. HPI Maria De Jesus Hogan is a 58 y.o. who presents to the emergency department with chief complaint of requesting alcohol detox. Patient states he drinks about 6-9 25 ounce tall boys daily and last drinkwas prior to arrival. Has been through alcohol [...] CYST REMOVAL face EGD (HISTORICAL) 07/23/2022 Dr. Estrella-[facility] SMALL INTESTINE SURGERY UPPER GASTROINTESTINAL ENDOSCOPY 09/27/2021 [...] Depression Sister Maria De Jesus Hogan Other ([phone]) Sister Maria De Jesus Hogan agoraphobia Arthritis Sister Maria De Jesus Hogan Cancer Mother Maria De Jesus Hogan colon rectal cancer; dx after age 50 Other ([id number]) Mother Maria De Jesus Hogan alcoholism Alcohol abuse Mother Maria De Jesus Hogan Stroke Mother Maria De Jesus Hogan Other ([id number]) Father Maria De Jesus Hogan h/o rheumatic [...] min Stress: No Stress Concern Present (01/20/2024) [employer] [place] [employer] - Occupational Stress Questionnaire Feeling of Stress : Not at all Social Connections: Unknown (01/28/2024) Social Connection and Isolation Panel [NHANES] Frequency of Communication with Friends and Family: Twice a week Frequency of Social Gatherings with Friends and Family: Patient unable to answer Attends Taoist Services: Never Active Member of Clubs or Organizations: No Attends Club or Organization Meetings: Never Marital Status: Recent Concern: Social Connections - Socially Isolated (01/20/2024) Social Connection and Isolation Panel [NHANES] Frequency of Communication with Friends and Family: Never Frequency of Social Gatherings with Friends and Family: Never Attends Taoist Services: Never Active Member of Clubs or [...] Abnormal ETHANOL IN SER/PLAS 334 (*) Narrative: 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 NOTE: This result is for medical treatment only. Analysis performed using non- forensic procedures. COMPREHENSIVE METABOLIC PANEL - Abnormal SODIUM [...] Culture. Procedure Abnormality Status --------- ------ Complete Urinalysis[[id number]] Normal Final result Please view results for [...] Temporal SpO2: 96% 95% Diagnoses as of 04/09/245 Alcoholic intoxication without complication (CMS/HCC) (HCC) The patient presented with chief complaint of alcohol detox. The differential diagnosis associated with this patient's presentation includes alcohol detox, drugintoxication, electrolyte abnormalities. Our workup consisted of ordering/reviewing: [...] alcohol detox. Last drink prior to arrival. Vitalsare stable. Patient given IV fluids, Zofran and started on phenobarbital. Will obtain labs for medical clearance. Patient will be admitted for detox. CRITICAL CARE TIME CONSULTS: None PROCEDURES: Unless otherwise noted below, none Procedures Patients symptoms are consistent with sepsis, severe sepsis, or septic shock (If yes use .sepsiscoremeasure): FINAL IMPRESSION 1. Alcoholic intoxication without complication (CMS/HCC) ([facility]) DISPOSITION Admit 04/09/2024 10:55:05 PM PATIENT [...] are any questions or concerns please feel freeto contact the dictating provider for clarification.) Kolby Whiteside DO (electronically signed) Emergency Medicine Provider Kolby Whiteside DO 04/09/242254 * Steve Demarco MD - 04/09/2024 6:31 PM EST Emergency Department Encounter Location: [facility] ED Patient: Maria De Jesus Hogan : 1965 Date of evaluation: 04/09/2024 ED Provider: Steve Demarco MD Time received sign-out: 1100pm Maria De Jesus Hogan was checked out to me by Dr Whiteside. Please see his/her initial documentation fordetails of the patient's initial ED presentation, physical [...] 409 ms QTC Interval 493 ms P [place] 65 degrees QRS [place] 59 degrees T Wave [place] 44 degrees RI Interval 162 ms CBC auto differential Collection [...] 04/09/242044) I Steve Demarco MD am the contracting executive of record. Final Impression 1. Alcoholic intoxication without complication (CMS/HCC) (HCC) DISPOSITION Admit 04/10/2024 12:06:32 AM (Please note that portions of this note may have been completed with a voice recognition program. Efforts were made to edit the dictations but occasionally words are mis-transcribed.) Steve Demarco MD [employer] Steve Demarco MD 04/10/247 * Karol Reno RN - 04/09/2024 6:31 PM EST Patient seeking detox from ETOH. 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 documented in this [facility]01-10-2025 Emergency department Note* Mercedes Kebede RN - 04/10/2024 6:01 AM EST Pt sleeping [facility] [id number] Emergency department Note* Mercedes Kebede RN - 04/10/2024 3:36 AM EST Pt sleeping [facility] [id number] Emergency department Note* Mercedes Kebede RN - 04/10/2024 2:30 AM EST Pt sleeping [facility] HospitalCkwjdq01-97-3195 History and physical note* John Matthews MD - 04/10/2024 12:25 AM EST Attending History and Physical Admit Date: 04/09/2024 [...] CYST REMOVAL face EGD (HISTORICAL) 07/23/2022 Dr. Estrella-[facility] SMALL INTESTINE SURGERY UPPER GASTROINTESTINAL ENDOSCOPY 09/27/2021 [...] min Stress: No Stress Concern Present (01/20/2024) [employer] [place] [employer] - Occupational Stress Questionnaire Feeling of Stress : Not at all Social Connections: Unknown (01/28/2024) Social Connection and Isolation Panel [NHANES] Frequency of Communication with Friends and Family: Twice a week Frequency of Social Gatherings with Friends and Family: Patient unable to answer Attends Taoist Services: Never Active Member of Clubs or Organizations: No Attends Club or Organization Meetings: Never Marital Status: Recent Concern: Social Connections - Socially Isolated (01/20/2024) Social Connection and Isolation Panel [NHANES] Frequency of Communication with Friends and Family: Never Frequency of Social Gatherings with Friends and Family: Never Attends Taoist Services: Never Active Member of Clubs or [...] Depression Sister Maria De Jesus Hogan Other ([id number]) Sister Maria De Jesus Hogan agoraphobia Arthritis Sister Maria De Jesus Hogan Cancer Mother Maria De Jesus Hogan colon rectal cancer; dx after age 50 Other ([id number]) Mother Maria De Jesus Hogan alcoholism Alcohol abuse Mother Maria De Jesus Hogan Stroke Mother Maria De Jesus Hogan Other ([id number]) Father Maria De Jesus Hogan h/o rheumatic [...] choking, chest tightness, shortness of breath, wheezing andstridor. Cardiovascular: Negative for chest pain. Gastrointestinal: Negative for nausea, vomiting, abdominal pain, diarrhea and blood in stool. Genitourinary: Negative for dysuria, frequency and flank pain. Musculoskeletal: Negative for myalgias and joint swelling. Skin: Negative for rash. Neurological: Negative for dizziness, tremors, seizures, syncope, facial asymmetry, speech difficulty, weakness, numbness and headaches. Hematological: Negative for adenopathy. Psychiatric/Behavioral: Negative for suicidal ideas, behavioral problems, self- injury and dysphoricmood. Vitals: BP 132/88 Pulse 97 Temp 36.3 [...] medical floor Will consult addiction medicine Start [place] protocol Will start the patient on thiamine [...] Primary Emergency Contact: Samira Mobile Relation: Spouse ADVANCED CARE PLANNING Maria De Jesus Hogan : 1965 Primary Care Physician: Lynda Rasheed MD The patient and/or family/surrogate voluntarily agreed to participate in ACP services. Patient s cognitive capacity: AOx3 Code Status: [_x] [FULL CODE - Continue all advanced life support: CPR,intubation,invasive procedures] [_] [DNR-CCA - DO NOT do CPR, intubation] [_] [DNR-LEARNING AND DEVELOPMENT ANALYST - Comfort care only] [_] DNR form [was/was not] signed Summary of discussion: The patient health care POA/ surrogate is the following: Patient. . [Condition that instigated the ACP on this DOS, relevant PMH, functional status, goals of care, andwhom this was discussed with including names and relationship to the patient, and any relevant advance care documentation discussion] I answered all the patient/family questions that I could within the range and scope of the current medical situation. We discussed the medical conditions, risks, benefits, outcomes, and goals of careat this time for the patient's medical issues at hand in the face of the patient's chronic issues and current presentation. Total time spent: 5 minutes were spent discussing the patient's resuscitation status, advance care planning, and end of life care, with patient and/or family/surrogate. John Matthews MD Division of Hospitalist Medicine [facility] [employer] Phone: [phone] 977-837401-10-2025 [facility]01-10-2025 History and physical note* John Matthews MD - 04/10/2024 12:25 AM EST Attending History and Physical Admit Date: 04/09/2024 [...] CYST REMOVAL face EGD (HISTORICAL) 07/23/2022 Dr. Estrella-[facility] SMALL INTESTINE SURGERY UPPER GASTROINTESTINAL ENDOSCOPY 09/27/2021 [...] min Stress: No Stress Concern Present (01/20/2024) [employer] [place] [employer] - Occupational Stress Questionnaire Feeling of Stress : Not at all Social Connections: Unknown (01/28/2024) Social Connection and Isolation Panel [NHANES] Frequency of Communication with Friends and Family: Twice a week Frequency of Social Gatherings with Friends and Family: Patient unable to answer Attends Taoist Services: Never Active Member of Clubs or Organizations: No Attends Club or Organization Meetings: Never Marital Status: Recent Concern: Social Connections - Socially Isolated (01/20/2024) Social Connection and Isolation Panel [NHANES] Frequency of Communication with Friends and Family: Never Frequency of Social Gatherings with Friends and Family: Never Attends Taoist Services: Never Active Member of Clubs or [...] Depression Sister Maria De Jesus Hogan Other ([phone]) Sister Maria De Jesus Hogan agoraphobia Arthritis Sister Maria De Jesus Hogan Cancer Mother Maria De Jesus Hogan colon rectal cancer; dx after age 50 Other ([id number]) Mother Maria De Jesus Hogan alcoholism Alcohol abuse Mother Maria De Jesus Hogan Stroke Mother Maria De Jesus Hogan Other ([phone]) Father Maria De Jesus Hogan h/o rheumatic [...] choking, chest tightness, shortness of breath, wheezing andstridor. Cardiovascular: Negative for chest pain. Gastrointestinal: Negative for nausea, vomiting, abdominal pain, diarrhea and blood in stool. Genitourinary: Negative for dysuria, frequency and flank pain. Musculoskeletal: Negative for myalgias and joint swelling. Skin: Negative for rash. Neurological: Negative for dizziness, tremors, seizures, syncope, facial asymmetry, speech difficulty, weakness, numbness and headaches. Hematological: Negative for adenopathy. Psychiatric/Behavioral: Negative for suicidal ideas, behavioral problems, self- injury and dysphoricmood. Vitals: BP 132/88 Pulse 97 Temp 36.3 [...] Extended Emergency Contact Information Primary Emergency Contact: Melvern,April Mobile Relation: Spouse ADVANCED CARE PLANNING Maria De Jesus Farr Samira : 1965 Primary Care Physician: Lynda Rasheed MD The patient and/or family/surrogate voluntarily agreed to participate in ACP services. Patient s cognitive capacity: AOx3 Code Status: [_x] [FULL CODE - Continue all advanced life support: CPR,intubation,invasive procedures] [_] [DNR-CCA - DO NOT do CPR, intubation] [_] [DNR-LEARNING AND DEVELOPMENT ANALYST - Comfort care only] [_] DNR form [was/was not] signed Summary of discussion: The patient health care POA/ surrogate is the following: Patient. . [Condition that instigated the ACP on this DOS, relevant PMH, functional status, goals of care, andwhom this was discussed with including names and relationship to the patient, and any relevant advance care documentation discussion] I answered all the patient/family questions that I could within the range and scope of the current medical situation. We discussed the medical conditions, risks, benefits, outcomes, and goals of careat this time for the patient's medical issues at hand in the face of the patient's chronic issues and current presentation. Total time spent: 5 minutes were spent discussing the patient's resuscitation status, advance care planning, and end of life care, with patient and/or family/surrogate. John Matthews MD Division of Hospitalist Medicine [facility] documented in this [facility]01-09-2025 Emergency department Triage note* Karol Reno RN - 04/09/2024 6:31 PM EST Patient seeking detox from ETOH. 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 [facility] [id number] Physician Emergency department Note* Kolby Whiteside DO - 04/09/2024 6:31 PM EST EMERGENCY DEPARTMENT ENCOUNTER Pt Name: Maria De Jesus Hogan Birthdate 1965 Date of evaluation: 04/09/2024 ED Provider: Mejgon Z Miesha, DO CHIEF COMPLAINT Chief Complaint Patient presents with Alcohol Problem Patient seeking detox from ETOH. 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 HISTORY OF PRESENT ILLNESS (Location/Symptom, Timing/Onset, Context/Setting, Quality, Duration, Modifying Factors, Severity) Note limiting factors. I wore appropriate PPE for the entirety of this encounter. HPI Maria De Jesus Hogan is a 58 y.o. who presents to the emergency department with chief complaint of requesting alcohol detox. Patient states he drinks about 6-9 25 ounce tall boys daily and last drinkwas prior to arrival. Has been through alcohol [...] CYST REMOVAL face EGD (HISTORICAL) 07/23/2022 Dr. Estrella-[facility] SMALL INTESTINE SURGERY UPPER GASTROINTESTINAL ENDOSCOPY 09/27/2021 [...] Depression Sister Maria De Jesus Hogan Other ([id number]) Sister Maria De Jesus Hogan agoraphobia Arthritis Sister Maria De Jesus Hogan Cancer Mother Maria De Jesus Hogan colon rectal cancer; dx after age 50 Other ([id number]) Mother Maria De Jesus Hogan alcoholism Alcohol abuse Mother Maria De Jesus Hogan Stroke Mother Maria De Jesus Hogan Other ([id number]) Father Maria De Jesus Hogan h/o rheumatic [...] min Stress: No Stress Concern Present (01/20/2024) [employer] [place] [facility] [employer] [facility] - Occupational Stress Questionnaire Feeling of Stress : Not at all Social Connections: Unknown (01/28/2024) Social Connection and Isolation Panel [NHANES] Frequency of Communication with Friends and Family: Twice a week Frequency of Social Gatherings with Friends and Family: Patient unable to answer Attends Taoist Services: Never Active Member of Clubs or Organizations: No Attends Club or Organization Meetings: Never Marital Status: Recent Concern: Social Connections - Socially Isolated (01/20/2024) Social Connection and Isolation Panel [NHANES] Frequency of Communication with Friends and Family: Never Frequency of Social Gatherings with Friends and Family: Never Attends Taoist Services: Never Active Member of Clubs or [...] Abnormal ETHANOL IN SER/PLAS 334 (*) Narrative: 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 NOTE: This result is for medical treatment only. Analysis performed using non- forensic procedures. COMPREHENSIVE METABOLIC PANEL - Abnormal SODIUM [...] Culture. Procedure Abnormality Status --------- ------ Complete Urinalysis[[id number]] Normal Final result Please view results for [...] Temporal SpO2: 96% 95% Diagnoses as of 04/09/245 Alcoholic intoxication without complication (CMS/HCC) (HCC) The patient presented with chief complaint of alcohol detox. The differential diagnosis associated with this patient's presentation includes alcohol detox, drugintoxication, electrolyte abnormalities. Our workup consisted of ordering/reviewing: [...] alcohol detox. Last drink prior to arrival. Vitalsare stable. Patient given IV fluids, Zofran and started on phenobarbital. Will obtain labs for medical clearance. Patient will be admitted for detox. CRITICAL CARE TIME CONSULTS: None PROCEDURES: Unless otherwise noted below, none Procedures Patients symptoms are consistent with sepsis, severe sepsis, or septic shock (If yes use .sepsiscoremeasure): FINAL IMPRESSION 1. Alcoholic intoxication without complication (CMS/HCC) ([facility]) DISPOSITION Admit 04/09/2024 10:55:05 PM PATIENT [...] are any questions or concerns please feel freeto contact the dictating provider for clarification.) Kolby Whiteside DO (electronically signed) Emergency Medicine Provider Kolby Whiteside DO 04/09/24 5834 [facility] [id number] Physician Emergency department Note* Steve Demarco MD - 04/09/2024 6:31 PM EST Emergency Department Encounter Location: [facility] ED Patient: Maria De Jesus Hogan : 1965 Date of evaluation: 04/09/2024 ED Provider: Steve Demarco MD Time received sign-out: 1100pm Maria De Jesus Hogan was checked out to me by Dr Whiteside. Please see his/her initial documentation fordetails of the patient's initial ED presentation, physical [...] 409 ms QTC Interval 493 ms P [place] 65 degrees QRS [place] 59 degrees T Wave [place] 44 degrees RI Interval 162 ms CBC auto differential Collection [...] 04/09/242044) I Steve Demarco MD am the contracting executive of record. Final Impression 1. Alcoholic intoxication without complication (CMS/HCC) (HCC) DISPOSITION Admit 04/10/2024 12:06:32 AM (Please note that portions of this note may have been completed with a voice recognition program. Efforts were made to edit the dictations but occasionally words are mis-transcribed.) Steve Demarco MD Acute Care [facility] Steve Demarco MD 04/10/247 [facility] [id number] NoteMy Chart messaged the patient letting him know he was referred for smoking cessation counseling. Gave contact information, will provide follow up.[facility]12-02-2024 NoteLVM letting the patient know they were referred for smoking cessation counseling. Gave contact information, will provide follow up.[facility]11-29-2024 History of Present illness Narrative* Myra Darden MD - 02/28/2024 9:30 AM EST Chief Complaint: Chief Complaint Patient presents with [...] min Stress: No Stress Concern Present (01/20/2024) [employer] [place] [facility] [employer] [facility] - Occupational Stress Questionnaire Feeling of Stress : Not at all Social Connections: Unknown (01/28/2024) Social Connection and Isolation Panel [NHANES] Frequency of Communication with Friends and Family: Twice a week Frequency of Social Gatherings with Friends and Family: Patient unable to answer Attends Taoist Services: Never Active Member of Clubs or Organizations: No Attends Club or Organization Meetings: Never Marital Status: Recent Concern: Social Connections - Socially Isolated (01/20/2024) Social Connection and Isolation Panel [NHANES] Frequency of Communication with Friends and Family: Never Frequency of Social Gatherings with Friends and Family: Never Attends Taoist Services: Never Active Member of Clubs or [...] Depression Sister Maria De Jesus Hogan Other ([id number]) Sister Maria De Jesus Hogan agoraphobia Arthritis Sister Maria De Jesus Hogan Cancer Mother Maria De Jesus Hogan colon rectal cancer; dx after age 50 Other ([id number]) Mother Maria De Jesus Hogan alcoholism Alcohol abuse Mother Maria De Jesus Hogan Stroke Mother Maria De Jesus Hogan Other ([id number]) Father Maria De Jesus Hogan h/o rheumatic [...] 3 months. Discussed findings with patient and hisfamily. - CT chest wo IV contrast; Future 2. Pulmonary emphysema, unspecified emphysema type (HCC) (Primary) Consider PFTs if additional evaluation for nodule is needed. 3. Cigarette nicotine dependence with other nicotine-induced disorder Interested in assistance with smoking cessation - Ambulatory referral to Smoking Cessation Director Of Safety 4. Alcohol abuse May complicate adherence to medical plan and also would be a concern if surgery required. Follow-up: 3 months with [facility] (prefers [facility]) documented in this [facility] [id number] Instructions* Patient Instructions* Manpreet Patiño MA - 02/28/2024 9:30 AM EST YOUR APPOINTMENT TODAY WAS WITH THE [facility] LUNG NODULE CLINIC, COPD CLINIC, PULMONARY AND SLEEP MEDICINE OFFICE. PLEASE CALL OUR OFFICE AT [phone] IF YOU HAVE NOT RECEIVED YOUR TEST [...] feedback to make improvements. COVID-19 VACCINATION INFORMATION: . [phone] HEALTH.ORG/CORONAVIRUS/VACCINE [facility] Central Scheduling [phone] [facility] Sleep Scheduling [phone] documented in this [facility]11-19-2024 History of Present illness Narrative* Fadia Hartley RCP - 02/18/2024 10:44 AM EST Lung Nodule Multidisciplinary Review Conference Consensus Recommendation Summary Privileged Information LUNG NODULE CONFERENCE CLINICAL SUMMARY Basic Demographic Information Maria De Jesus Farr Samira Date of presentation : 02/18/24 1965 Presenter: Marina Hartley RRT 58 y.o. [] Previous presentation date : Presentation Type [] Prospective [] Retrospective [x] Nodule Brief Clinical Summary & Lung Nodule Conference Review Recommendations 4 Maria De Jesus Hogan Dx: Lung Rads 4A Screening Presenter: Marina SYDNIE Hartley Clin: T N M Stage: Path: T [...] Sent by PCP for initial lung screening CT.PCP attempting to contact patient in lung nodule [...] Multidisciplinary Review Conference are based on national evidencebased guidelines. The plan used by the managing physician(s) may vary based on the status of the individual patient and the reports results made available at time of presentation. We recognize that this data set may change and that the final treatment plan may differ from this recommendation. documented in this [facility]2024 NoteReceived STOREROOM CLERK referral to [facility]. 1st attempt- VMX1. Will offer pt 12/[address] Barajas in [facility]2024 Telephone encounter Note* Telephone Encounter - Daniela Montserrat - 02/14/2024 1:53 PM EST Received STOREROOM CLERK referral to [facility]. 1st attempt- VMX1. Will offer pt 12/[address] Barajas in [facility]. [facility] [id number] Miscellaneous Notes* Telephone Encounter - Daniela Mariano - 02/14/2024 1:53 PM EST Received STOREROOM CLERK referral to [facility]. 1st attempt- VMX1. Will offer pt 03/[address] Barajas in [facility]. * Telephone Encounter - Clarita Coppola LPN - 02/14/2024 8:32 AM EST I was able to speak with patient, I notified him of the results, and provided him with the number to the clinic so he can call to set up an appointment. I also sent information to his [facility] for there referral for him as well to has access to that way. * Telephone Encounter - Lynda Rasheed MD - 02/13/2024 1:55 PM EST Called and left message for patient to [...] patient is aware of results and referral * Telephone Encounter - Fadia Hartley RCP - 02/13/2024 12:53 PM EST Maria De Jesus Hogan 1965 had an abnormal Lung Rads 4A lung screening CT and an expedited referral to the [facility] lung nodule clinic is recommended. If you agree, please notify patient of findings and consider placing lung nodule clinic referral atthis time. Navigators are available to assist with expediting follow-up. Imaging will be reviewed at the upcoming lung nodule review conference on 02/18/2024 and recommendations will be shared with providers. documented in this [facility]2024 Telephone encounter Note* Telephone Encounter - Clarita Coppola LPN - 02/14/2024 8:32 AM EST I was able to speak with patient, I notified him of the results, and provided him with the number to the clinic so he can call to set up an appointment. [facility] well to has access to that way. [facility] [id number] Telephone encounter Note* Telephone Encounter - Lynda Rasheed MD - 02/13/2024 1:55 PM EST Called and left message for patient to [...] patient is aware of results and referral [facility] [id number] Telephone encounter Note* Telephone Encounter - Fadia Hartley RCP - 02/13/2024 12:53 PM EST Maria De Jesus Hgoan 1965 had an abnormal Lung Rads 4A lung screening CT and an expedited referral to the [facility] lung nodule clinic is recommended. If you agree, please notify patient of findings and consider placing lung nodule clinic referral atthis time. Navigators are available to assist with expediting follow-up. Imaging will be reviewed at the upcoming lung nodule review conference on 02/18/2024 and recommendations will be shared with providers. [place] [id number] Telephone encounter Note* Telephone Encounter - Fadia Hartley RCP - 02/13/2024 12:53 PM EST error [id number] Miscellaneous Notes* Telephone Encounter - Fadia Hartley RCP - 02/13/2024 12:53 PM EST error documented in this [facility]11-07-2024 Telephone encounter Note* Telephone Encounter - Clarita Coppola LPN - 02/06/2024 3:19 PM EST Seen yesterday No future appt [id number] Miscellaneous Notes* Telephone Encounter - Clarita Coppola LPN - 02/06/2024 3:19 PM EST Seen yesterday No future appt documented in this [place] [address]-07-2024 Telephone encounter Note* Telephone Encounter - Clarita Coppola LPN - 02/06/2024 3:16 PM EST 06/26/23 last filled Seen yesterday. No future appt set up [address] [id number] Miscellaneous Notes* Telephone Encounter - Clarita Coppola LPN - 02/06/2024 3:16 PM EST 06/26/23 last filled Seen yesterday. No future appt set up documented in this [facility]11-06-2024 History of Present illness Narrative* Lynda Rasheed MD - 02/05/2024 8:20 AM EST Images from the original note were not included. [facility] - [address] [facility] [address] Dept: [phone] Dept Loc: [phone] Reason for Visit: Follow-up (Med Check ) and Flu Vaccine (Patient has already received the flu vaccine, pt does not remember date received ) Assessment and Plan 1. Screening PSA (prostate specific antigen) - PSA Screening 2. Psoriasiform seborrheic dermatitis prescribed patient the Dovonex and clobetasol cream. Keep thearea moisturized. - gabapentin (Neurontin) 300 MG capsule; Take 2 capsules (600 mg) by mouth 3 times daily., StartingWed 02/05/2024, Until Sat02/04/2025, Normal - calcipotriene (Dovonex) 0.005 [...] (600 mg) by mouth 3 times daily., StartingWed 02/05/2024, Until Mounika 02/04/2025, Normal - calcipotriene (Dovonex) 0.005 % cream; [...] colon cancer referral for colonoscopy done - [facility] General Surgery - Sotero Madsen MD 5. [...] Now he has been working with the electronic commerce specialist with Vivitrol injections. He states he was also on gabapentin which seems to help. He is asking for refill for this and continues t o see the electronic commerce specialist for his Vivitrol injection. He also [...] CYST REMOVAL face EGD (HISTORICAL) 07/23/2022 Dr. Estrella-[facility] SMALL INTESTINE SURGERY UPPER GASTROINTESTINAL ENDOSCOPY 09/27/2021 normal WISDOM TOOTH EXTRACTION Family History Problem Relation Name Age of Onset Depression Sister Maria De Jesus Hogan Other ([id number]) Sister Maria De Jesus Hogan agoraphobia Arthritis Sister Maria De Jesus Hgoan Cancer Mother Maria De Jesus Hogan colon rectal cancer; dx after age 50 Other ([id number]) Mother Maria De Jesus Hogan alcoholism Alcohol abuse Mother Maria De Jesus Hogan Stroke Mother Maria De Jesus Hogan Other ([id number]) Father Maria De Jesus Hogan h/o rheumatic [...] to 64 Years) (2 of 2 - PCV)09/26/2023 Diabetes Screening 11/02/2023 Influenza Vaccine (1) 12/01/2023 COVID-19 Vaccine ( - season) 2023 Depression Monitoring 07/28/2024 Lipid Panel [...] by Triston Rasheed MD documented in this [facility]10-29-2024 History of Present illness Narrative* Ammon Abdul, [facility] - 01/28/2024 1:30 PM EDT Outpatient Behavioral Health Initial Assessment Start Time: 1417 , End Time: [address] a [address] Appointed Guardian? no Does patient have a Durable Power of Batch Records Clerk? no Does the patient have an Advanced Directive? If Yes, copy received? no Screening Tool Score Comment (required for each screening tool) PHQ-9 1 (PHQ-2: 0) Not clinically significant KENY-7 3 Not clinically significant AUDIT-C 11 Likely indicates AUD DAST-10 0 Not clinically significant Life Events Checklist pos Pos in one domain PCL-5 4 Not clinically significant Language Preferred Language: Mongolian Languages Spoken: uzbek Presenting Problem(s) Reason for visit as reported by patient Chief Complaint Patient presents with Drug / Alcohol Assessment Referral Information Referral source as reported by patient: Physician Type of Physician: Treating Psychiatrist (CommentName) History of presenting problem(s) (Onset, duration, precipitating [...] were you homeless or living in a prison (including now)?: No Patient feels safe at [...] identify any impact on treatment) none reported Amish/Spiritual Orientation (note if patient identifies any belief in higher power, sikhism belief, or not. Identify any spiritual/sikhism beliefs about suicide) none reported Educational History [...] Not answered Start Date: Not answered Service Jerome Status: Never Served Branch: Not answered Years [...] to answer How often do you attend episcopalian or sikhism services?: Never Do you belong to any clubs or organizations such as episcopalian groups, unions, fraternal or athletic groups, or [...] If the patient has ever been to longterm or in [facility], list where and how much time the [...] De Jesus Hypertension Insomnia family history includes [id number] in his father, mother, and sister; Alcohol [...] out before you got the money to buymore.: Never true Within the past 12 months, the food you bought just didn't last and you didn't have money to get more.: Never true Do you have any other nutrition concerns at this time?: No Clinician Concerns, Clarifications, Referral Referral Indicated:: No Hospitalized/ER/Surgery in the last 3 months (if yes, include date and reason) detox at [facility] Past Surgical History: Procedure Laterality Date COLONOSCOPY 06/10/2020 EGD/Dr Madison/AMANDA CYST REMOVAL face EGD (HISTORICAL) 07/23/2022 Dr. Estrella-[facility] SMALL INTESTINE SURGERY UPPER GASTROINTESTINAL ENDOSCOPY 09/27/2021 [...] Admission Number of detox admissions: 3 Location: [facility] Date: 01/13/24 Is there an immediate [...] continued use of the same amount of asubstance? Yes 11a) Has the client experienced withdrawal [...] No Risk/Stable, Rationale: Pt completed detox at [facility] on 01-23-2014 1 Dimension 2 Severity [...] him. Pt reports that he was drinking 7- 8 tall boys daily prior to detox. Pt [...] 1:54 PM PABLO Paul documented in this [facility]10-25-2024 Nurse Note* Virgilio Bone RN - 01/24/2024 2:10 PM EDT Patient discharging home. Patient received vivitriol injection tolerated well. Patient given medication alert bracelet. Patient medications reviewed and appointments. Patient sent with written instructions and belongings. Patient picking up in [facility]. [facility] [id number] Nurse Note* Virgilio Bone RN - 01/24/2024 2:10 PM EDT Patient discharging home. Patient received vivitriol injection tolerated well. Patient given medication alert bracelet. Patient medications reviewed and appointments. Patient sent with written instructions and belongings. Patient picking up in [facility]. * Yasemin Abdul RN - 01/24/2024 4:31 AM EDT Patient up, social with peers with appropriate behavior. Patient takes medication with ease. Patient encouraged to make needs known. * Tracy Davies RN - 01/23/2024 2:57 PM EDT 0915: Pt social in [facility]. Pt has attended groups. Pt A&O x4. Pt denies SI/HI/AVH. Pt compliant with medications. Pt eating and taking fluids well. Pt up and gait steady. Pt allowed to wear his own shoes. Pt is pleasant and cooperative. Pt encouraged to notify staff with concerns. * Evelyn Abad RN - 01/23/2024 1:54 AM EDT Patient is up and steady, seen in group room socializing. Pt is cooperative and med compliant. Pt denies SI/HI/AVH. Pt encouraged to notify staff for any questions and concerns. * Adeline Peacock RN - 01/22/2024 8:25 AM EDT Patient sitting in day lyn upon RN approach. Patient compliant with taking AM medications. Patientdenies suicidal ideation, self harm, homicidal ideation, visual hallucinations, auditory hallucinations and pain. Patient pleasant throughout exam. Patient educated on plan of care and to seek staff with concerns. Patient verbalizes understanding. * Evelyn Abad RN - 01/21/2024 11:30 PM EDT Patient is up and steady, seen in group room. Pt is cooperative and med compliant. Pt is encouragedto notify staff for any questions and concerns. * Nanette De Santiago RN - 01/21/2024 11:11 AM EDT Patient received PRN albuterol inhaler as per orders at 1112 for . * Nanette De Santiago RN - 01/21/2024 9:28 AM EDT Patient received PRN respiratory TX from RT at 0915 with good results. 02 93 percent with no O2 * Kristina Hampton RN - 01/20/2024 10:37 PM EDT Pt arrived from [facility] ED via cart with squad and security, [...] monitor pt for safety. documented in this [facility]10-25-2024 [facility] 01-24-2024 Hospital course Narrative* Tiki LagunasDuc Ponce, RN INFUSION - PARADI TENDER - 01/24/2024 11:17 AM EDT Addiction Medicine Detox Unit Discharge Summary Patient: [...] started on phenobarbital. The dose was tapered accordingto his clinical signs and symptoms. Patient was given prn medications as well as thiamine and folicacid. Patient was monitored with the CIWA scale. Patient was given Vivitrol injection. It was well tolerated. On the day of discharge patient was denying residual symptoms of withdrawal. he denies any paranoia, auditory or visual hallucinations. Denied SI/HI. Patient maintained forward thinking andwas motivated to continue his sobriety. Patient was compliant with the rules and regulations of [facility] and was appropriate with staff and peers. [...] 367 ms QTC Interval 460 ms P [place] 50 degrees QRS [place] 55 degrees T Wave [place] 51 degrees RI Interval 166 ms SARS-CoV-2 Antigen Collection Time: [...] given to pursue chemical dependency treatment at: [facility] Addiction [address] [id number] Go on 01/28/2024 at 1:30pm with Ammon for intake assessment for Intensive Outpatient Program and addiction medicine follow up. JUAN Delgado CNP [address] [place] [id number] Go on 02/12/2024 at 2 PM for [...] Note: Narrative portions of note written using Scanadu dictation software. Efforts are made to dictate clearly and proofread but errors in dictation still may occur. Please reach out to author with any clarifying questions. Cosigned by Jonatan Mckeon MD at 01/24/2024 2:57 PM EDT * Jonatan Mckeon MD - 01/24/2024 10:00 AM EDT Images from the original note were not included. ADDICTION MEDICINE 4E DETOX UNIT DISCHARGE SUMMARY __ Patient MRN Maria De Jesus Hogan [id number] Admit Date Discharge Date 01/20/2024 01/24/2024 Primary Care Physician Lynda Rasheed MD Admitting Physician Luis Branch MD Consultants None. Reason for Admission Maria De Jesus Hogan is a 58 y.o. year old male with a PMH of AUD, TUD, BPH and Lombardo's esophaguswho that was admitted for mgmt of alcohol WD. On approach, Maria De Jesus Hogan is seen lying in hospital room stating I don't really want to talk, I'd like to sleep. Engages limitedly in brief conversation. States he is drinking 12 24ox beers(8%) daily, denies any other drug use. Did reports infrequent cannabis use to ED. Limited sober time since ADM last saw him in October on consults at [facility]. States he wants to follow through with [...] before discharge. Unclear if his prescriber will continueprescribing this for neuropathy given AUD. Vitals height is 1.803 m (5' 11) and weight is 104 kg (230 lb). His temporal temperature is 36.3 C (97.4 F). His blood pressure is 121/91 and his pulse is 94. His respiration is 18 and oxygen saturation is98%. Physical Exam Constitutional: Appearance: Normal appearance. HENT: [...] 367 ms QTC Interval 460 ms P [place] 50 degrees QRS [place] 55 degrees T Wave [place] 51 degrees RI Interval 166 ms SARS-CoV-2 Antigen Collection Time: [...] Electronically Signed On 01-20-2024 19:55:10 EDT by Berna Scheduled Inpatient Meds folic acid, 1 mg, [...] Your Medications These medications were sent to [facility] [address] [place] [address] [address] [address] gabapentin 300 MG capsule Follow Up [facility] Addiction IOP [address] [place] [id number] Go on 01/28/2024 at 1:30pm with Ammon for intake assessment for Intensive Outpatient Program and addiction medicine follow up. JUAN Delgado CNP [address] [place] [id number] Go on 02/12/2024 at 2 PM for MAT/Vivitrol follow-up. Future Appointments Date Time Provider Department Center 01/28/2024 1:30 PM PABLO Paul [facility] ADD IOP None 02/12/2024 2:00 PM [facility] The patient was also instructed to: Attend AA/NA meetings or a similar 12-step program. Abstain from any mind or mood altering substances that are not prescribed. Follow up with their primary care doctor and/or psychiatrist as soon as possible. Pending studies or issues to follow up with: Continue Vivitrol for MAT with JUSTEN Carlson. Complete CD IOP. Have Pcp evaluate liver health. This discharge summary was completed with the aid of the fellow: Soraida Caldwell MD electronically signed Time Spent on Discharge Summary: > 30 mins documented in this [facility]SNewark [id number] [facility] 01-24-2024 Note* Care Coordination - JEREMY Solis - 01/24/2024 8:19 AM EDT MANAGER SITE saw patient to discuss aftercare plans and treatment post discharge. Patient was reminded aboutappointments. Patient has IOP assessment with [facility] on 01/28/2024 at 1:30 PM. Patient has MAT follow-up with nurse practitioner Feli on 02/12/2024 at 2 PM. All information included in patient's discharge paperwork. Patient denied current SI/HI/AVH. Patient reported that their would be picking them up from the hospital and taking them back home. Patient denied needing anything further from MANAGER SITE at the time. MANAGER SITE informed patient's nurse about conversation. [facility] [id number] Note* Care Coordination - JEREMY Solis - 01/24/2024 8:19 AM EDT MANAGER SITE saw patient to discuss aftercare plans and treatment post discharge. Patient was reminded aboutappointments. Patient has IOP assessment with Lai on 01/28/2024 at 1:30 PM. Patient has MAT follow-up with nurse practitioner Feli on 02/12/2024 at 2 PM. All information included in patient's discharge paperwork. Patient denied current SI/HI/AVH. Patient reported that their would be picking them up from the hospital and taking them back home. Patient denied needing anything further from MANAGER SITE at the time. MANAGER SITE informed patient's nurse about conversation. [facility] [id number] Miscellaneous Notes* Care Coordination - JEREMY Solis - 01/24/2024 8:19 AM EDT MANAGER SITE saw patient to discuss aftercare plans and treatment post discharge. Patient was reminded aboutappointments. Patient has IOP assessment with Lai on 01/28/2024 at 1:30 PM. Patient has MAT follow-up with nurse practitioner Feli on 02/12/2024 at 2 PM. All information included in patient's discharge paperwork. Patient denied current SI/HI/AVH. Patient reported that their would be picking them up from the hospital and taking them back home. Patient denied needing anything further from MANAGER SITE at the time. MANAGER SITE informed patient's nurse about conversation. * Care Plan - Yasemin Abdul RN - 01/24/2024 6:05 AM EDT Problem: Potential for Substance Withdrawal Goal: Verbalizes [...] symptoms and will verbalize plan for changing drug- related behavior 01/24/2024 06 by Yasemin Abdul RN Outcome: Progressing 01/23/20242199 by Yasemin Abdul RN Outcome: Progressing Problem: Safety - Adult Goal: Free from fall injury 01/24/2024 06 by Yasemin Abdul RN Outcome: Progressing 01/23/2024 220 by Yasemin Abdul RN Outcome: Progressing Problem: Discharge Planning Goal: Discharge to home or other facility with appropriate resources 01/24/2024 0605 by Yasemin Abdul RN Outcome: Progressing 01/23/2024 220 by Yasemin Abdul RN Outcome: Progressing * Care Plan - Tracy Davies RN - 01/23/2024 11:56 AM EDT Problem: Potential for Substance Withdrawal Goal: Verbalizes signs/symptoms of withdrawal Outcome: Progressing Goal: Reports signs/symptoms of withdrawal Outcome: Progressing Goal: Free of withdrawal symptoms Outcome: Progressing Problem: Drug Abuse/Detox Goal: Will have no detox symptoms and will verbalize plan for changing drug- related behavior Outcome: Progressing Problem: Safety - Adult Goal: Free from fall injury Outcome: Progressing Problem: Discharge Planning Goal: Discharge to home or other facility with appropriate resources Outcome: Progressing * Care Plan - Evelyn Abad RN - 01/23/2024 4:23 AM EDT Problem: Potential for Substance Withdrawal Goal: Verbalizes signs/symptoms of withdrawal Outcome: Progressing Goal: Reports signs/symptoms of withdrawal Outcome: Progressing Goal: Free of withdrawal symptoms Outcome: Progressing * Care Coordination - JEREMY Solis - 01/22/2024 11:45 AM EDT Patient interested in IOP and MAT. Patient scheduled for [facility] on 01/28/2024 at 1:30 PM. Patient scheduled for MAT with nurse practitioner Feli on 02/12/2024 at 2 PM. All information included in patient's discharge paperwork. * Group Note - Aurora Camarena - 01/22/2024 11:42 AM EDT Department: [facility] Group Topic: Recreation [...] Jesus Hogan Date of : 1965 MR: [id number] Appearance: Good eye contact Affect: Appropriate Behavior: [...] withdrawal with inpatient treatment without complication (HCC) * Care Plan - Adeline Peacock RN - 01/22/2024 8:25 AM EDT Problem: Potential for Substance Withdrawal Goal: Reports signs/symptoms of withdrawal Outcome: Progressing Problem: Drug Abuse/Detox Goal: Will have no detox symptoms and will verbalize plan for changing drug- related behavior Outcome: Progressing * Care Plan - Evelyn Abad RN - 01/22/2024 2:01 AM EDT Problem: Potential for Substance Withdrawal Goal: Verbalizes signs/symptoms of withdrawal Outcome: Progressing Goal: Reports signs/symptoms of withdrawal Outcome: Progressing Goal: Free of withdrawal symptoms Outcome: Progressing * Care Plan - Evelyn Abad RN - 01/22/2024 2:01 AM EDT Problem: Potential for Substance Withdrawal Goal: Verbalizes signs/symptoms of withdrawal Outcome: Progressing Goal: Reports signs/symptoms of withdrawal Outcome: Progressing Goal: Free of withdrawal symptoms Outcome: Progressing * Care Coordination - JEREMY Solis - 01/21/2024 9:37 AM EDT Behavioral Health Psycho-Social Assessment (Social Work) Date: 01/21/2024 Patient Name: Maria De Jesus Hogan : 1965 Identifying Information: Patient is a 58-year-old male mended to ED for for detox from alcohol. Patient is known to addiction medicine team as he is previously on unit on 07/27/2023. Patientwas then seen again on the medical floor on 11/27/2023. Patient has been unable to maintain sobrietysince discharge from the hospital. Presenting Problem: Patient [...] an extensive history of passive SI secondary tointoxication. Patient denies plan, intent, or method but reports more increased feelings of depression and sadness. Patient denies recent or past history of SIB. Substance Abuse/Use: Patient reports that he is currently drinking upwards of 9, 24 ounce Natradha Pereira beers daily. Patient reports his last drink [...] Patient does have extensive history of falls whileintoxicated. Patient reports previous history of engagement with [...] as an adult. Patient denies any history Orbisonia or status. Family Constellation/Childhood History: Patient reports that he is currently to his living in [facility]. Patient reports that he has 3 biological children and 4 stepchildren. Patient reports that his father in his 11 years old. Patient did not report his mother is stillalive currently. Patient was born and raised in [place], [place] by his mother and father. He reports that his father when he was 11 years old, and this was traumatic for him. Patient reports that he was raisedprimarily by his mother for the remainder of his childhood. He denies childhood abuse. Education/Work: Patient reports that he graduated high school. 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 Patient denies SSI/SSD. Cultural/Spirituality/Leisure: Patient denies any cultural needs or concerns at the current time. Patient denies identify any sikhism preference. It is unknown if patient is [...] plan, intent, or method but reports more increasedfeelings of depression and sadness.) Activating Events (Recent): Recent loss(es) or other significant negative event(s) (legal, financial, relationship, etc.) Describe:: Ongoing struggles substance use Treatment History: Previous psychiatric diagnoses and treatments, Non-compliant with treatment, [facility] (Patient has mental health diagnosis depression [...] intoxication. Patient denies plan, intent, or method butreports more increased feelings of depression and sadness. Patient denies recent or past history ofSIB. Patient has mental health diagnosis depression anxiety. Patient denies being on any medicationfor mental health needs. Patient has previous engagement [...] to them while they are on the unit.Patient report needing additional current time. Patient encouraged to seek out [facility] unit staff should they identify any additional [...] to contact the dictating provider for clarification. * Care Plan - Kristina Hampton RN - 01/21/2024 7:34 AM EDT The patient is Moderately Stable - Low risk of patient condition declining or worsening The patient's goals for the shift include rest The clinical goals for the shift include comfort/safety documented in this [facility]10-25-2024 Plan of care note* Care Plan - Yasemin Abdul RN - 01/24/2024 6:05 AM EDT Problem: Potential for Substance Withdrawal Goal: Verbalizes [...] symptoms and will verbalize plan for changing drug- related behavior 01/24/2024 06 by Yasemin Abdul RN Outcome: Progressing 01/23/20242199 by Yasemin Abdul RN Outcome: Progressing Problem: Safety - Adult Goal: Free from fall injury 01/24/2024 06 by Yasemin Abdul RN Outcome: Progressing 01/23/20242199 by Yasemin Abdul RN Outcome: Progressing Problem: Discharge Planning Goal: Discharge to home or other facility with appropriate resources 01/24/2024 06 by Yasemin Abdul RN Outcome: Progressing 01/23/20242199 by Yasemin Abdul RN Outcome: Progressing [facility] [id number] Nurse Note* Yasemin Abdul RN - 01/24/2024 4:31 AM EDT Patient up, social with peers with appropriate behavior. Patient takes medication with ease. Patient encouraged to make needs known. [facility] [id number] Nurse Note* Tracy Davies RN - 01/23/2024 2:57 PM EDT 0915: Pt social in lobby. Pt has attended groups. Pt A&O x4. Pt denies SI/HI/AVH. Pt compliant with medications. Pt eating and taking fluids well. Pt up and gait steady. Pt allowed to wear his own shoes. Pt is pleasant and cooperative. Pt encouraged to notify staff with concerns. [facility] HospitalLzmfmo23-48-3014 Plan of care note* Care Plan - Tracy Davies RN - 01/23/2024 11:56 AM EDT Problem: Potential for Substance Withdrawal Goal: Verbalizes signs/symptoms of withdrawal Outcome: Progressing Goal: Reports signs/symptoms of withdrawal Outcome: Progressing Goal: Free of withdrawal symptoms Outcome: Progressing Problem: Drug Abuse/Detox Goal: Will have no detox symptoms and will verbalize plan for changing drug- related behavior Outcome: Progressing Problem: Safety - Adult Goal: Free from fall injury Outcome: Progressing Problem: Discharge Planning Goal: Discharge to home or other facility with appropriate resources Outcome: Progressing [facility] [id number] History of Present illness Narrative* Soraida Caldwell MD - 01/23/2024 7:30 AM EDT Images from the original note were not included. ADDICTION MEDICINE PROGRESS NOTE Patient: Maria De Jesus Hogan __ Problem List: Principal Problem: Alcohol withdrawal with inpatient treatment without complication (HCC) Active Problems: Severe alcohol use disorder (HCC) SUBJECTIVE Chief Complaint Patient presents with Alcohol Problem Last 4 CIWA scores per RN assessments Interim History Reports feeling much better today - awake and engaged, seen in day lyn and walking up and down floor Asks about GBP script at discharge and shoes on floor /2 to neuropathy Confirms interest in IOP and Vivitrol on day of dc Notes he has a job interview tomorrow, looking forward to dc home Review of Systems Review of Systems [...] Electronically Signed On 01-20-2024 19:55:10 EDT by Berna Labs CBC: Recent Labs 01/20/241748 WBC 4.2 HGB 16.1 PLT 156 MCV 94.3 RDW 14.1 BMP: Recent Labs 01/20/24174801/22/24 1032 NA 134* 130* K 4.1 4.0 CL 93* 96* CO2 26 29 BUN 7* 7* CREATININE 0.59* 0.61* CALCIUM 8.2* 8.9 Liver Profile: Recent Labs 01/20/24174801/22/24 1032 AST 102* 58* ALT 106* 75* BILITOT 0.5 0.7 ALKPHOS 100 77 PROT 7.3 6.6 Glucose: Recent Labs 01/20/241748 01/22/24 1032 GLUCOSE 174* 98 Lactic Acid: [...] in IOP and vivitrol - would prefer [facility] IOP and MAT follow up Alcohol withdrawal [...] and IM vivitrol in AM before discharge. * Evelin Smith - 01/22/2024 9:05 AM EDT Nutrition rescreen completed. Chart reviewed. 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 CORDELL Hallman * Soraida Caldwell MD - 01/22/2024 8:29 AM EDT Images from the original note were not included. ADDICTION MEDICINE PROGRESS NOTE Patient: Maria De Jesus Hogan __ Problem List: Principal Problem: Alcohol withdrawal with [...] own, reaffirms strong interest in going to [facility] to address drinking Reports interest in vivitrol [...] Electronically Signed On 01-20-2024 19:55:10 EDT by Berna Labs CBC: Recent Labs 01/20/24 1749 WBC [...] Likely 2/2 to dehydration and alcohol withdrawal. Encouragedoral hydration. Will give 1 time dose of beta ghulam if tachycardia persists to see his response. documented in this [facility]10-24-2024 NoteProblem: Potential for Substance Withdrawal Goal: Verbalizes signs/symptoms of withdrawal Outcome: Progressing Goal: Reports signs/symptoms of withdrawal Outcome: Progressing Goal: Free of withdrawal symptoms [facility]: [facility] of care note* Care Plan - Evelyn Abad RN - 01/23/2024 4:23 AM EDT Problem: Potential for Substance Withdrawal Goal: Verbalizes signs/symptoms of withdrawal Outcome: Progressing Goal: Reports signs/symptoms of withdrawal Outcome: Progressing Goal: Free of withdrawal symptoms Outcome: Progressing [facility] [id number] Nurse Note* Evelyn Abad RN - 01/23/2024 1:54 AM EDT Patient is up and steady, seen in group room socializing. Pt is cooperative and med compliant. Pt denies SI/HI/AVH. Pt encouraged to notify staff for any questions and concerns. [facility] [id number] Note* Care Coordination - JEREMY Solis - 01/22/2024 11:45 AM EDT Patient interested in IOP and MAT. Patient scheduled for [facility] on 01/28/2024 at 1:30 PM. Patient scheduled for MAT with nurse practitioner Feli on 02/12/2024 at 2 PM. All information included in patient's discharge paperwork. T [facility] [id number] Note* Care Coordination - JEREMY Solis - 01/22/2024 11:45 AM EDT Patient interested in IOP and MAT. Patient scheduled for [facility] on 01/28/2024 at 1:30 PM. Patient scheduled for MAT with nurse practitioner Feli on 02/12/2024 at 2 PM. All information included in patient's discharge paperwork. [facility] [id number] Group counseling note* Group Note - Aurora Camarena - 01/22/2024 11:42 AM EDT Department: [facility] Group Topic: Recreation Therapy [...] Jesus Hogan Date of : 1965 MR: [id number] Appearance: Good eye contact Affect: Appropriate Behavior: [...] withdrawal with inpatient treatment without complication (HCC) [facility] HospitalHhzpag02-21-3368 NoteProblem: Potential for Substance Withdrawal Goal: Reports signs/symptoms of withdrawal Outcome: Progressing Problem: Drug Abuse/Detox Goal: Will have no detox symptoms and will verbalize plan for changing drug-related behavior Outcome: [facility]10-23-2024 Nurse Note* Adeline Peacock RN - 01/22/2024 8:25 AM EDT Patient sitting in day lyn upon RN approach. Patient compliant with taking AM medications. Patientdenies suicidal ideation, self harm, homicidal ideation, visual hallucinations, auditory hallucinations and pain. Patient pleasant throughout exam. Patient educated on plan of care and to seek staff with concerns. Patient verbalizes understanding. [facility]10-23-2024 Plan of care note* Care Plan - Adeline Peacock RN - 01/22/2024 8:25 AM EDT Problem: Potential for Substance Withdrawal Goal: Reports signs/symptoms of withdrawal Outcome: Progressing Problem: Drug Abuse/Detox Goal: Will have no detox symptoms and will verbalize plan for changing drug- related behavior Outcome: Progressing [facility]10-23-2024 NoteProblem: Potential for Substance Withdrawal Goal: Verbalizes signs/symptoms of withdrawal Outcome: Progressing Goal: Reports signs/symptoms of withdrawal Outcome: Progressing Goal: Free of withdrawal symptoms Outcome: [facility]10-23-2024 Plan of care note* Care Plan - Evelyn Abad RN - 01/22/2024 2:01 AM EDT Problem: Potential for Substance Withdrawal Goal: Verbalizes signs/symptoms of withdrawal Outcome: Progressing Goal: Reports signs/symptoms of withdrawal Outcome: Progressing Goal: Free of withdrawal symptoms Outcome: Progressing [place] [address]-23-2024 NoteProblem: Potential for Substance Withdrawal Goal: Verbalizes signs/symptoms of withdrawal Outcome: Progressing Goal: Reports signs/symptoms of withdrawal Outcome: Progressing Goal: Free of withdrawal symptoms Outcome: [facility]10-23-2024 Plan of care note* Care Plan - Evelyn Abad RN - 01/22/2024 2:01 AM EDT Problem: Potential for Substance Withdrawal Goal: Verbalizes signs/symptoms of withdrawal Outcome: Progressing Goal: Reports signs/symptoms of withdrawal Outcome: Progressing Goal: Free of withdrawal symptoms Outcome: Progressing [facility] [id number] Nurse Note* Evelyn Abad RN - 01/21/2024 11:30 PM EDT Patient is up and steady, seen in group room. Pt is cooperative and med compliant. Pt is encouragedto notify staff for any questions and concerns. [facility] [id number] Nurse Note* Nanette De Santiago RN - 01/21/2024 11:11 AM EDT Patient received PRN albuterol inhaler as per orders at 1112 for . [facility] [id number] Hospital Discharge instructions* Discharge Instr - Other Orders* JEREMY Solis - 01/21/2024 9:38 AM EDT After detox you should abstain from any use of any mood altering chemical Appointment with your primary care physician should be scheduled It is highly recommended that you attend post hospital treatment Please read the information give to you - Intro to 12 step programs Call the National Suicide Prevention Hotline if needed at: 7-402-753-AENG (6654) Please call the following number should you have questions regarding your discharge or aftercare appointments: [facility] documented in this [facility]10-22-2024 Note* Care Coordination - JEREMY Solis - 01/21/2024 9:37 AM EDT Behavioral Health Psycho-Social Assessment (Social Work) Date: 01/21/2024 Patient Name: Maria De Jesus Hogan : 1965 Identifying Information: Patient is a 58-year-old male mended to ED for for detox from alcohol. Patient is known to addiction medicine team as he is previously on unit on 07/27/2023. Patientwas then seen again on the medical floor on 11/27/2023. Patient has been unable to maintain sobrietysince discharge from the hospital. Presenting Problem: Patient [...] an extensive history of passive SI secondary tointoxication. Patient denies plan, intent, or method but [...] Patient does have extensive history of falls whileintoxicated. Patient reports previous history of engagement with [...] as an adult. Patient denies any history Orbisonia or status. Family Constellation/Childhood History: Patient reports that he is currently to his living in [facility]. Patient reports that he has 3 biological children and 4 stepchildren. Patient reports that his father in his 11 years old. Patient did not report his mother is stillalive currently. Patient was born and raised in [place], [place] by his mother and father. He reports that his father when he was 11 years old, and this was traumatic for him. Patient reports that he was raisedprimarily by his mother for the remainder of his childhood. He denies childhood abuse. Education/Work: Patient reports that he graduated high school. 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 Patient denies SSI/SSD. Cultural/Spirituality/Leisure: Patient denies any cultural needs or concerns at the current time. Patient denies identify any sikhism preference. It is unknown if patient is [...] plan, intent, or method but reports more increasedfeelings of depression and sadness.) Activating Events (Recent): Recent loss(es) or other significant negative event(s) (legal, financial, relationship, etc.) Describe:: Ongoing struggles substance use Treatment History: Previous psychiatric diagnoses and treatments, Non-compliant with treatment, [facility] (Patient has mental health diagnosis depression [...] intoxication. Patient denies plan, intent, or method butreports more increased feelings of depression and sadness. Patient denies recent or past history ofSIB. Patient has mental health diagnosis depression anxiety. Patient denies being on any medicationfor mental health needs. Patient has previous engagement with outpatient mental health providers but denies any current treatment. Plan: Plans for patient are currently unknown. Patient historically declines any aftercare treatment. Patient does not follow any treatment recommendations and provided to him. JEREYM will continue to work with patient in order to hopefully identify aftercare plans. Patient encouraged to engage in all activities that are offered to them while they are on the unit.Patient report needing additional current time. Patient encouraged to seek out [facility] unit staff should they identify any additional [...] to contact the dictating provider for clarification. [facility] [id number] Note* Care Coordination - JEREMY Solis - 01/21/2024 9:37 AM EDT Behavioral Health Psycho-Social Assessment (Social Work) Date: 01/21/2024 Patient Name: Maria De Jesus Hogan : 1965 Identifying Information: Patient is a 58-year-old male mended to ED for for detox from alcohol. Patient is known to addiction medicine team as he is previously on unit on 07/27/2023. Patientwas then seen again on the medical floor on 11/27/2023. Patient has been unable to maintain sobrietysince discharge from the hospital. Presenting Problem: Patient [...] an extensive history of passive SI secondary tointoxication. Patient denies plan, intent, or method but [...] Patient does have extensive history of falls whileintoxicated. Patient reports previous history of engagement with [...] as an adult. Patient denies any history Orbisonia or status. Family Constellation/Childhood History: Patient reports that he is currently to his living in [facility]. Patient reports that he has 3 biological children and 4 stepchildren. Patient reports that his father in his 11 years old. Patient did not report his mother is stillalive currently. Patient was born and raised in [place], [place] by his mother and father. He reports that his father when he was 11 years old, and this was traumatic for him. Patient reports that he was raisedprimarily by his mother for the remainder of his childhood. He denies childhood abuse. Education/Work: Patient reports that he graduated high school. 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 Patient denies SSI/SSD. Cultural/Spirituality/Leisure: Patient denies any cultural needs or concerns at the current time. Patient denies identify any sikhism preference. It is unknown if patient is [...] plan, intent, or method but reports more increasedfeelings of depression and sadness.) Activating Events (Recent): Recent loss(es) or other significant negative event(s) (legal, financial, relationship, etc.) Describe:: Ongoing struggles substance use Treatment History: Previous psychiatric diagnoses and treatments, Non-compliant with treatment, [facility] (Patient has mental health diagnosis depression [...] intoxication. Patient denies plan, intent, or method butreports more increased feelings of depression and sadness. Patient denies recent or past history ofSIB. Patient has mental health diagnosis depression anxiety. Patient denies being on any medicationfor mental health needs. Patient has previous engagement with outpatient mental health providers but denies any current treatment. Plan: Plans for patient are currently unknown. Patient historically declines any aftercare treatment. Patient does not follow any treatment recommendations and provided to him. OFFSET PRESSMAN will continue to work with patient in order to hopefully identify aftercare plans. Patient encouraged to engage in all activities that are offered to them while they are on the unit.Patient report needing additional current time. Patient encouraged to seek out MANAGER SITE unit staff should they identify any additional [...] to contact the dictating provider for clarification. [facility] [id number] Nurse Note* Nanette De Santiago RN - 01/21/2024 9:28 AM EDT Patient received PRN respiratory TX from RT at 0915 with good results. 02 93 percent with no O2 [facility] HospitalBdausk06-10-0398 Plan of care note* Care Plan - Kristina Hampton RN - 01/21/2024 7:34 AM EDT The patient is Moderately Stable - Low risk of patient condition declining or worsening The patient's goals for the shift include rest The clinical goals for the shift include comfort/safety [facility] HospitalYitbib06-82-7072 History and physical note* Soraida Caldwell MD - 01/21/2024 6:39 AM EDT Images from the original note were not included. [facility] 4E DETOX UNIT H&P Patient: Maria De Jesus Hogan Admit Date: 01/20/2024 Primary Care Physician: Lynda Rasheed MD __ HISTORY OF PRESENT ILLNESS Chief Complaint Patient presents with Alcohol Problem Maria De Jesus Hogan is a 58 y.o. year old male with a PMH of AUD, TUD, BPH and Lombardo's esophaguswho that was admitted for mgmt of alcohol WD. On approach, Maria De Jesus Hogan is seen lying in hospital room stating I don't really want to talk, I'd like to sleep. Engages limitedly in brief conversation. States he is drinking 12 24ox beers(8%) daily, denies any other drug use. Did reports infrequent cannabis use to ED. Limited sober time since ADM last saw him in October on consults at [facility]. States he wants to follow through with [facility] this time. On admission, a urine drug [...] but Pt cannot recall where. Detoxifications: x1 [facility] (per Pt). 12 Step Meetings: Has [...] withdrawal, with unspecified complication (HCC) 10/02/2019 Alcoholism ([facility]/HCC) (HCC) Anxiety Arthritis Maria De Jesus Cerebral artery occlusion with cerebral infarction (HCC) Cerebrovascular disease Depression GERD (gastroesophageal reflux disease) Maria De Jesus Hypertension Insomnia Past Surgical History Past Surgical History: Procedure Laterality Date COLONOSCOPY 06/10/2020 EGD/Dr Madison/AMANDA CYST REMOVAL face EGD (HISTORICAL) 07/23/2022 Dr. Estrella-[facility] SMALL INTESTINE SURGERY UPPER GASTROINTESTINAL ENDOSCOPY 09/27/2021 normal WISDOM TOOTH EXTRACTION Family History Family History Problem Relation Name Age of Onset Depression Sister Maria De Jesus Hogan Other ([id number]) Sister Maria De Jesus Hogan agoraphobia Arthritis Sister Maria De Jesus Hogan Cancer Mother Maria De Jesus Hogan colon rectal cancer; dx after age 50 Other ([id number]) Mother Maria De Jesus Hogan alcoholism Alcohol abuse Mother Maria De Jesus Hogan Stroke Mother Maria De Jesus Hogan Other ([id number]) Father Maria De Jesus Hogan h/o rheumatic fever, cardiac arrest due to bee sting Hypertension Father Maria De Jesus Hogan Social Drivers of Health Tobacco Use: High Risk (11/28/2023) Patient History [...] min Stress: No Stress Concern Present (01/20/2024) [employer] [place] [employer] - Occupational Stress Questionnaire Feeling of Stress : Not at all Social Connections: Socially Isolated (01/20/2024) Social Connection and Isolation Panel [NHANES] Frequency of Communication with Friends and Family: Never Frequency of Social Gatherings with Friends and Family: Never Attends Taoist Services: Never Active Member of Clubs or [...] Year: No Utilities: Not At Risk (01/20/2024) [facility] Utilities Threatened with loss of utilities: [...] Electronically Signed On 01-20-2024 19:55:10 EDT by Kitani Recent Results (from the past 48 hours) [...] 367 ms QTC Interval 460 ms P [place] 50 degrees QRS [place] 55 degrees T Wave [place] 51 degrees RI Interval 166 ms SARS-CoV-2 Antigen Collection Time: [...] OR ondansetron, polyethylene glycol (PEG) 3350, sodium chloride0.9%, traZODone Continuous Inpatient Infusions ASSESSMENT & PLAN [...] with the fellow s findings and plan. [facility] [id number] [facility]10-22-2024 History and physical note* Soraida Caldwell MD - 01/21/2024 6:39 AM EDT Images from the original note were not included. [facility]DICTION [facility]ICINE 4E DETOX UNIT H&P Patient: Maria De Jesus Hogan Admit Date: 01/20/2024 Primary Care Physician: Lynda Rasheed MD __ HISTORY OF PRESENT ILLNESS Chief Complaint Patient presents with Alcohol Problem Maria De Jesus Hogan is a 58 y.o. year old male with a PMH of AUD, TUD, BPH and Lombardo's esophaguswho that was admitted for mgmt of alcohol WD. On approach, Maria De Jesus Hogan is seen lying in hospital room stating I don't really want to talk, I'd like to sleep. Engages limitedly in brief conversation. States he is drinking 12 24ox beers(8%) daily, denies any other drug use. Did reports infrequent cannabis use to ED. Limited sober time since ADM last saw him in October on consults at [facility]. States he wants to follow through with [facility] this time. On admission, a urine drug [...] but Pt cannot recall where. Detoxifications: x1 [facility] (per Pt). 12 Step Meetings: Has [...] CYST REMOVAL face EGD (HISTORICAL) 07/23/2022 Dr. Estrella-[facility] SMALL INTESTINE SURGERY UPPER GASTROINTESTINAL ENDOSCOPY 09/27/2021 normal WISDOM TOOTH EXTRACTION Family History Family History Problem Relation Name Age of Onset Depression Sister Maria De Jesus Hogan Other ([phone]) Sister Maria De Jesus Hogan agoraphobia Arthritis Sister Maria De Jesus Hogan Cancer Mother Maria De Jesus Hogan colon rectal cancer; dx after age 50 Other ([id number]) Mother Maria De Jesus Hogan alcoholism Alcohol abuse Mother Maria De Jesus Hogan Stroke Mother Maria De Jesus Hogan Other ([phone]) Father Maria De Jesus Hogan h/o rheumatic fever, cardiac arrest due to bee sting Hypertension Father Maria De Jesus Hogan [employer] Tobacco Use: High Risk (11/28/2023) Patient History [...] min Stress: No Stress Concern Present (01/20/2024) [employer] [place] [employer] - Occupational Stress Questionnaire Feeling of Stress : Not at all Social Connections: Socially Isolated (01/20/2024) Social Connection and Isolation Panel [NHANES] Frequency of Communication with Friends and Family: Never Frequency of Social Gatherings with Friends and Family: Never Attends Taoist Services: Never Active Member of Clubs or [...] Year: No Utilities: Not At Risk (01/20/2024) [facility] Utilities Threatened with loss of utilities: [...] Electronically Signed On 01-20-2024 19:55:10 EDT by Berna BRADSHAW Recent Results (from the past 48 [...] 367 ms QTC Interval 460 ms P [place] 50 degrees QRS [place] 55 degrees T Wave [place] 51 degrees RI Interval 166 ms SARS-CoV-2 Antigen Collection Time: [...] OR ondansetron, polyethylene glycol (PEG) 3350, sodium chloride0.9%, traZODone Continuous Inpatient Infusions ASSESSMENT & PLAN [...] s findings and plan. documented in this [facility]10-21-2024 Nurse Note* Kristina Hampton RN - 01/20/2024 10:37 PM EDT Pt arrived from [facility] ED via cart with squad and security, [...] in condition. Will monitor pt for safety. [facility] [id number] Emergency department Note* Jacqueline Richardson RN - 01/20/2024 10:03 PM EDT Called in report to TISH Acevedo at [facility] 4. Jacqueline Richardson RN 01/20/242202 [facility] HospitalMutpoh79-72-8323 Emergency department Note* Jacqueline Richardson RN - 01/20/2024 10:03 PM EDT Called in report to TISH Acevedo at [facility] 4W. Jacqueline Richardson RN 01/20/242202 * Triston Abraham MD - 01/20/2024 5:20 PM EDT This will serve as my Supervisory note and shared attestation. I personally saw the patient and made/approved the management plan and take responsibility for the patient management. I did perform a substantive portion of the visit including all aspects of the Medical Decision Making. All diagnostic, treatment, and disposition decisions were made by myself in conjunction with theresident. For all further details of the patient's emergency department visit, please see their documentation. [facility] ED EMERGENCY DEPARTMENT ENCOUNTER Pt Name: Maria [...] for detox from alcohol. 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 Says was in detox [...] CYST REMOVAL face EGD (HISTORICAL) 07/23/2022 Dr. Estrella-[facility] SMALL INTESTINE SURGERY UPPER GASTROINTESTINAL ENDOSCOPY 09/27/2021 normal WISDOM TOOTH EXTRACTION CURRENT MEDICATIONS Previous Medications ACAMPROSATE (CAMPRAL) 333 MG EC TABLET Take 1 tablet (333 mg) by mouth 3 times daily. Do not crush,chew, or split. ALBUTEROL 108 (90 BASE) MCG/ACT [...] Depression Sister Maria De Jesus Hogan Other ([id number]) Sister Maria De Jesus Hogan agoraphobia Arthritis Sister Maria De Jesus Hogan Cancer Mother Maria De Jesus Hogan colon rectal cancer; dx after age 50 Other ([id number]) Mother Maria De Jesus Hogan alcoholism Alcohol abuse Mother Maria De Jesus Hogan Stroke Mother Maria De Jesus Hogan Other ([id number]) Father Maria De Jesus Hogan h/o rheumatic [...] 0 min Stress: Stress Concern Present (07/28/2023) [employer] [place] [employer] - Occupational Stress Questionnaire Feeling of Stress : To some extent Social Connections: Moderately Isolated (07/28/2023) Social Connection and Isolation Panel [NHANES] Frequency of Communication with Friends and Family: Twice a week Frequency of Social Gatherings with Friends and Family: Once a week Attends Taoist Services: Never Active Member of Clubs or [...] Housing in the Last Year: No SCREENINGS [place] Coma Scale Best Eye Response: Spontaneous Best [...] for medical treatment only. Analysis performed using non- forensic procedures. SARS-COV-2 ANTIGEN - Normal SARS-CoV-2 Antigen [...] If confirmation is needed, request confirmation under separateorder. EMERGENCY DEPARTMENT COURSE and DIFFERENTIAL DIAGNOSIS/MDM: Vitals: [...] substantive portion of the visit including all aspectsof the medical decision making. Pt appears clinically intoxicated. Vitals overall normal. Ethanol level was significantly elevated. Mildly increased anion gap. Given 1 L of IV NS. Medicallycleared for inpatient detox. Admitted to inpatient detox. [...] Triston Abraham MD [facility] Emergency [facility] Triston Abraham MD 01/20/242048 * Dani Mike DO - 01/20/2024 5:20 PM EDT EMERGENCY DEPARTMENT ENCOUNTER Pt Name: Maria De [...] treatment. Denies any drug use. He does smok e cigarettes. Nursing Notes were reviewed. Limitations to [...] withdrawal, with unspecified complication (HCC) 10/02/2019 Alcoholism ([facility]/HCC) (HCC) Anxiety Arthritis Maria De Jesus Cerebral artery occlusion with cerebral infarction (HCC) Cerebrovascular disease Depression GERD (gastroesophageal reflux disease) Maria De Jesus Hypertension Insomnia SURGICAL HISTORY Past Surgical History: Procedure Laterality Date COLONOSCOPY 06/10/2020 EGD/Dr Madison/Janis CYST REMOVAL face EGD (HISTORICAL) 07/23/2022 Dr. Estrella-[facility] SMALL INTESTINE SURGERY UPPER GASTROINTESTINAL ENDOSCOPY 09/27/2021 normal WISDOM TOOTH EXTRACTION CURRENT MEDICATIONS Previous Medications ACAMPROSATE (CAMPRAL) 333 MG EC TABLET Take 1 tablet (333 mg) by mouth 3 times daily. Do not crush,chew, or split. ALBUTEROL 108 (90 BASE) MCG/ACT [...] Depression Sister Maria De Jesus Hogan Other ([phone]) Sister Maria De Jesus Hogan agoraphobia Arthritis Sister Maria De Jesus Hogan Cancer Mother Maria De Jesus Hogan colon rectal cancer; dx after age 50 Other ([id number]) Mother Maria De Jesus Hogan alcoholism Alcohol abuse Mother Maria De Jesus Hogan Stroke Mother Maria De Jesus Hogan Other ([phone]) Father Maria De Jesus Hogan h/o rheumatic [...] 0 min Stress: Stress Concern Present (07/28/2023) [employer] [place] [employer] - Occupational Stress Questionnaire Feeling of Stress : To some extent Social Connections: Moderately Isolated (07/28/2023) Social Connection and Isolation Panel [NHANES] Frequency of Communication with Friends and Family: Twice a week Frequency of Social Gatherings with Friends and Family: Once a week Attends Taoist Services: Never Active Member of Clubs or [...] Housing in the Last Year: No SCREENINGS [place] Coma Scale Best Eye Response: Spontaneous Best Verbal Response: Oriented Best Motor Response: Follows commands [place] Coma Scale Score: 15 PHYSICAL EXAM ED [...] for medical treatment only. Analysis performed using non- forensic procedures. SARS-COV-2 ANTIGEN - Normal SARS-CoV-2 Antigen [...] If confirmation is needed, request confirmation under separateorder. All other labs were within normal range [...] acute ischemia. At this time, I think patientwould benefit from an inpatient stay for detox. Patient is agreeable to this. At this time, he is somewhat agitated and restless, I ordered 2 [address] now. Dr[address] Luis Branch will admit the patientfor detox. He recommends short acting agents for [...] are any questions or concerns please feel freeto contact the dictating provider for clarification.) Dani Mike DO (electronically signed) Emergency Medicine Provider Dani Mike DO Resident 01/20/242027 Dani Mike DO Resident 01/20/242037 Cosigned by Triston Abraham MD at 01/20/2024 9:00 PM EDT * Jo Ann Leiva RN - 01/20/2024 5:20 PM EDT Pt presents seeking alcohol detox. Last drink was right before leaving house. Drinks about 6-8 beers/day. Has been through detox in past. Has never had withdrawal seizures. Currently having anxiety, vomiting, palpitations documented in this encounterSNewark [id number] NoteNOTE: This result is for medical treatment only. Analysis performed using non-forensic procedures. [facility] HospitalOkzett56-01-2973 Emergency department Triage note* Jo Ann Leiva RN - 01/20/2024 5:20 PM EDT Pt presents seeking alcohol detox. Last drink was right before leaving house. Drinks about 6-8 beers/day. Has been through detox in past. Has never had withdrawal seizures. Currently having anxiety, vomiting, palpitations [facility] HospitalDpuosi47-42-4004 Physician Emergency department Note* Triston Abraham MD - 01/20/2024 5:20 PM EDT This will serve as my Supervisory note and shared attestation. I personally saw the patient and made/approved the management plan and take responsibility for the patient management. I did perform a substantive portion of the visit including all aspects of the Medical Decision Making. All diagnostic, treatment, and disposition decisions were made by myself in conjunction with theresident. For all further details of the patient's emergency department visit, please see their documentation. [facility] ED EMERGENCY DEPARTMENT ENCOUNTER Pt Name: Maria [...] for detox from alcohol. 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 Says was in detox [...] CYST REMOVAL face EGD (HISTORICAL) 07/23/2022 Dr. Estrella-[facility] SMALL INTESTINE SURGERY UPPER GASTROINTESTINAL ENDOSCOPY 09/27/2021 normal WISDOM TOOTH EXTRACTION CURRENT MEDICATIONS Previous Medications ACAMPROSATE (CAMPRAL) 333 MG EC TABLET Take 1 tablet (333 mg) by mouth 3 times daily. Do not crush,chew, or split. ALBUTEROL 108 (90 BASE) MCG/ACT [...] Depression Sister Maria De Jesus Hogan Other ([id number]) Sister Maria De Jesus Hogan agoraphobia Arthritis Sister Maria De Jesus Hogan Cancer Mother Maria De Jesus Hogan colon rectal cancer; dx after age 50 Other ([id number]) Mother Maria De Jesus Hogan alcoholism Alcohol abuse Mother Maria De Jesus Hogan Stroke Mother Maria De Jesus Hogan Other ([phone]) Father Maria De Jesus Hogan h/o rheumatic [...] 0 min Stress: Stress Concern Present (07/28/2023) [employer] [place] [employer] - Occupational Stress Questionnaire Feeling of Stress : To some extent Social Connections: Moderately Isolated (07/28/2023) Social Connection and Isolation Panel [NHANES] Frequency of Communication with Friends and Family: Twice a week Frequency of Social Gatherings with Friends and Family: Once a week Attends Taoist Services: Never Active Member of Clubs or [...] Housing in the Last Year: No SCREENINGS [place] Coma Scale Best Eye Response: Spontaneous Best [...] for medical treatment only. Analysis performed using non- forensic procedures. SARS-COV-2 ANTIGEN - Normal SARS-CoV-2 Antigen [...] If confirmation is needed, request confirmation under separateorder. EMERGENCY DEPARTMENT COURSE and DIFFERENTIAL DIAGNOSIS/MDM: Vitals: [...] substantive portion of the visit including all aspectsof the medical decision making. Pt appears clinically intoxicated. Vitals overall normal. Ethanol level was significantly elevated. Mildly increased anion gap. Given 1 L of IV NS. Medicallycleared for inpatient detox. Admitted to inpatient detox. [...] Triston Abraham MD [facility] Triston Abraham MD 01/20/242048 [facility]: 1(317) 516-645710-21-2024 Physician Emergency department Note* Dani Mike DO - 01/20/2024 5:20 PM EDT EMERGENCY DEPARTMENT ENCOUNTER Pt Name: Maria De Jesus Hogan Birthdate 1965 Date of evaluation: 01/20/2024 ED Provider: Dnai Mike DO CHIEF COMPLAINT Chief Complaint Patient [...] treatment. Denies any drug use. He does smok e cigarettes. Nursing Notes were reviewed. Limitations to [...] CYST REMOVAL face EGD (HISTORICAL) 07/23/2022 Dr. Estrella-[facility] SMALL INTESTINE SURGERY UPPER GASTROINTESTINAL ENDOSCOPY 09/27/2021 normal WISDOM TOOTH EXTRACTION CURRENT MEDICATIONS Previous Medications ACAMPROSATE (CAMPRAL) 333 MG EC TABLET Take 1 tablet (333 mg) by mouth 3 times daily. Do not crush,chew, or split. ALBUTEROL 108 (90 BASE) MCG/ACT [...] Depression Sister Maria De Jesus Hogan Other ([phone]) Sister Maria De Jesus Hogan agoraphobia Arthritis Sister Maria De Jesus Hogan Cancer Mother Maria De Jesus Hogan colon rectal cancer; dx after age 50 Other ([id number]) Mother Maria De Jesus Hogan alcoholism Alcohol abuse Mother Maria De Jesus Hogan Stroke Mother Maria De Jesus Hogan Other ([id number]) Father Maria De Jesus Hogan h/o rheumatic [...] 0 min Stress: Stress Concern Present (07/28/2023) [employer] [place] [employer] - Occupational Stress Questionnaire Feeling of Stress : To some extent Social Connections: Moderately Isolated (07/28/2023) Social Connection and Isolation Panel [NHANES] Frequency of Communication with Friends and Family: Twice a week Frequency of Social Gatherings with Friends and Family: Once a week Attends Taoist Services: Never Active Member of Clubs or [...] Response: Oriented Best Motor Response: Follows commands [place] Coma Scale Score: 15 PHYSICAL EXAM ED [...] for medical treatment only. Analysis performed using non- forensic procedures. SARS-COV-2 ANTIGEN - Normal SARS-CoV-2 Antigen [...] If confirmation is needed, request confirmation under separateorder. All other labs were within normal range [...] acute ischemia. At this time, I think patientwould benefit from an inpatient stay for detox. Patient is agreeable to this. At this time, he is somewhat agitated and restless, I ordered [address] now[address] Luis Branch will admit the patientfor detox. He recommends short acting agents for [...] are any questions or concerns please feel freeto contact the dictating provider for clarification.) Dani Mike DO (electronically signed) Emergency Medicine Provider Dani Mike DO Resident 01/20/242027 Dani Mike DO Resident 01/20/242037 Cosigned by Triston Abraham MD at 01/20/2024 9:00 PM EDT [facility] HospitalGrcabg42-12-1657 Miscellaneous Notes* Care Coordination - PABLO Gannon - 12/11/2023 1:00 PM EDT Pt did not show for IOP assessment on this date. documented in this encounterSNewark HospitalLqqwcy38-23-2929 Note* Care Coordination - PABLO Gannon - 12/11/2023 1:00 PM EDT Pt did not show for IOP assessment on this date. [facility] HospitalAkxivp69-01-0179 Note* Care Coordination - PABLO Gannon - 12/11/2023 1:00 PM EDT Pt did not show for IOP assessment on this date. [facility] [id number] Telephone encounter Note* Telephone Encounter - Lauren Sheikh MA - 12/03/2023 1:43 PM EDT Recent Visits Date Type Provider Dept 12/26/22 Office Visit Lynda Rasheed MD [facility] Showing recent visits within past 365 days and meeting all other requirements Future Appointments Date Type Provider Dept 12/17/23 Appointment Lynda Rasheed MD [facility] Showing future appointments within next 90 [...] medications from any other provider? No None [facility] HospitalXxyrws49-47-5236 Miscellaneous Notes* Telephone Encounter - Lauren Sheikh MA - 12/03/2023 1:43 PM EDT Recent Visits Date Type Provider Dept 12/26/22 Office Visit Lynda Rasheed MD [facility] Showing recent visits within past 365 days and meeting all other requirements Future Appointments Date Type Provider Dept 12/17/23 Appointment Lynda Rasheed MD [facility] Showing future appointments within next 90 [...] other provider? No None documented in this [facility]08-31-2024 Hospital course Narrative* Saurabh Moran MD - 11/30/2023 10:39 AM EDT Discharge Summary Maria De Jesus Hogan : [...] period of sobriety while he was in longterm although appears that his last time in detox was earlier this year in June. He came in with serum ethanol level of 0.297 on 11/27. He was admitted fordetox and addiction med was consulted. The following is a summary of his diagnosis management during his stay here at [facility]: Acute, acute on chronic, unstable/uncontrolled chronic problems/diagnoses: # Chronic Alcohol use disorder with acute withdrawal -was being detoxed here and has been on thiamine and folate as well as as needed Ativan as per addiction medicine. Addiction medicine will was consulted and was following. Patient also started on naltrexone per addiction medicine. Today he wantedto leave but his heart rate was still [...] NAME: Follow up with Lynda Rasheed MD [address] [place] [address] [address] [facility] [address] INSTRUCTIONS TO MA/SW: Please call patient on [...] MD 11/30/2023, 10:50 AM documented in this encounterSNewark HospitalEnsgcm55-16-1743 [facility] 11-30-2023 Nurse Note* Dee Lyn RN - 11/30/2023 10:08 AM EDT At 0900, patient wanted to talk to the physician about being discharged today. Physician spoke withpatient. Physician notified this nurse that patient wants to leave AMA and would not be discharged today. At 1000, this nurse provided patient with AMA form. AMA form was signed by patient, and this nurse removed patient IV. [facility] [id number] Nurse Note* Dee Lyn RN - 11/30/2023 10:08 AM EDT At 0900, patient wanted to talk to the physician about being discharged today. Physician spoke withpatient. Physician notified this nurse that patient wants to leave AMA and would not be discharged today. At 1000, this nurse provided patient with AMA form. AMA form was signed by patient, and this nurse removed patient IV. * Larry Avila RN - 11/28/2023 12:02 AM EDT Patient presents seeking inpatient admission for alcohol [...] drug use. Smokes 1.5 ppd of tobacco. [facility]missions [facility] at [facility]. Is actually not allowed back on the detox unit at [facility] because of some incident that occurred in the past. States he tends to never follow up with therapy or other recommendations after detox. Completed IOP after which he was sober for a year, and it was the most soberhe has ever been. Has been to AA but stated it did not work for him. Has been on Vivitrol before and stated that It's worth it. CIWA 10. Main withdrawal symptoms include anxiety and nausea. Patientgiven 97.2 mg of phenobarbital. Per chart review, it looks like he has been on Campral before. Hx of neuropathy/chronic pain. Takes Gabapentin. Denies pain. BP WNL. Denies having a history of any ment al health issues. No daily meds. Denies HI or SI. States he wants to go to counseling/therapy to figure out what's in his head that causes him to continue to struggle with alcohol. States he likes todrink. Also likes the way it makes him feel normal. Does not like the withdrawals and feeling sick.Wants to get his mind right and figure [...] with his . Unemployed. 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 No legal concerns. Has a valid ID. is able to transport patient because he does not currently drive. [place] for health insurance coverage. Plan is to admit patient medically for detox at [facility]. Would also recommend that patient follow up with IOP on discharge. Patient seemed interested in Vivitrol. Patient provided with a list of treatment re sources in addition to First Step, IOP, Vivitrol, and Scientologist [facility] CenterJimdo Peer Sheet Manufacturing Supervisor Service pamphlets. documented in this [facility]08-31-2024 Plan of care note* Care Plan - Dee Lyn RN - 11/30/2023 10:01 AM EDT The patient is Moderately Stable - Low [...] other facility with appropriate resources Outcome: Progressing [facility] HospitalNhxwfj97-60-5274 Miscellaneous Notes* Care Plan - Dee Lyn RN - 11/30/2023 10:01 AM EDT The patient is Moderately Stable - Low [...] other facility with appropriate resources Outcome: Progressing * Care Plan - Mp Butler RN - 11/30/2023 7:02 AM EDT The patient is Moderately Stable - Low risk of patient condition declining or worsening The patient's goals for the shift include Safety The clinical goals for the shift include Safety * Care Plan - Keshia Armijo RN - 11/29/2023 5:16 PM EDT The patient is Moderately Stable - Low risk of patient condition declining or worsening The patient's goals for the shift include Safety and to feel better. The clinical goals for the shift include safety * Care Coordination - BENNIE Sethi - 11/29/2023 4:09 PM EDT S/W, IOP IOP counselor did come up to see patient to discuss treatment program. Patient was scheduled for an appointment for 12/10 at 10A. * Care Coordination - Nancy Munroe RN - 11/29/2023 12:21 PM EDT Care Managment Initial Assessment Date: 11/29/2023 Patient Name: Maria De Jesus Hogan : 1965 Patient Information Source of Information: Patient Cognition/Language: WFL - Within Functional Limits Permission given to speak with patient appeals representative/caregiver as indicated: Confirmation of Payer with patient/family: Yes Payer Name: Annemarie JOSE ANGEL Jerome: No Confirmation of Primary Care Physician: Confirmed PCP Name: Dr. Lynda Rasheed Seen in last 2 years?: Yes Primary Caregiver: Self If assistance needed, confirmed caregiver ready, willing and able to care for patient at discharge:Yes Confirmed with: Per pt: June is able to assist at [place] Living Arrangements Current Residence: House Number of [...] routinely. Has insurance and prescription coverage, uses [facility] in [place]. Patient denies any financial difficulties. Plan to DC home with ETOH treatment when medically stable. Patient verbalizes understanding and is in agreement with POC. Nancy Munroe RN * Care Coordination - Raina Salgado - 11/29/2023 12:10 PM EDT Outpatient Behavioral Health Services Case Management/Care Coordination Note Date of Contact: 11/29/23 Start Time: 12:10 PM End Time: 12:20 PM Duration: 10 mins Type of Contact: Uxgz-zm-Vyfu Patient's Identified Case Management/Care Coordination Need(s) addressed [...] describing services. Staff discussed location of program, typesof programming, length of groups and pt's previous experiences with IOP through Addiction Medicine at [facility]. Note Any Anticipated Barriers: Pt stated [...] he had recently gone through Detox at [facility] and other IOP services and it had helped in the past. documented in this encounterSNewark HospitalTumdyv43-94-0670 Plan of care note* Care Plan - Mp Butler RN - 11/30/2023 7:02 AM EDT The patient is Moderately Stable - Low risk of patient condition declining or worsening The patient's goals for the shift include Safety The clinical goals for the shift include Safety [facility] HospitalQewevj42-33-2986 Plan of care note* Care Plan - Keshia Armijo RN - 11/29/2023 5:16 PM EDT The patient is Moderately Stable - Low risk of patient condition declining or worsening The patient's goals for the shift include Safety and to feel better. The clinical goals for the shift include safety [facility] HospitalVgeqes58-59-6655 Note* Care Coordination - BENNIE Sethi - 11/29/2023 4:09 PM EDT S/W, IOP IOP counselor did come up to see patient to discuss treatment program. Patient was scheduled for an appointment for 12/10 at 10A. [facility] HospitalYicqek35-61-3280 Note* Care Coordination - BENNIE Sethi - 11/29/2023 4:09 PM EDT S/W, IOP IOP counselor did come up to see patient to discuss treatment program. Patient was scheduled for an appointment for 12/10 at 10A. [facility] Lbvdvw31-30-7824 Note* Care Coordination - Nancy Munroe RN - 11/29/2023 12:21 PM EDT Care Managment Initial Assessment Date: 11/29/2023 Patient Name: Maria De Jesus Hogan : 1965 Patient Information Source of Information: Patient Cognition/Language: WFL - Within Functional Limits Permission given to speak with patient appeals representative/caregiver as indicated: Confirmation of Payer with patient/family: Yes Payer Name: Annemarie WALTER Jerome: No Confirmation of Primary Care Physician: Confirmed PCP Name: Dr. Lynda Rasheed Seen in last 2 years?: Yes Primary Caregiver: Self If assistance needed, confirmed caregiver ready, willing and able to care for patient at discharge:Yes Confirmed with: Per pt: June is able to assist at [place] Living Arrangements Current Residence: House Number of [...] Living Prescription Coverage: Yes Pharmacy Used: [facility] [place] Medication Management: Independent Transportation/Shopping: Independent Transportation Mode: [...] routinely. Has insurance and prescription coverage, uses [facility] in [place]. Patient denies any financial difficulties. Plan to DC home with ETOH treatment when medically stable. Patient verbalizes understanding and is in agreement with POC. Nancy Munroe RN [facility] HospitalOhhucf98-28-1197 Note* Care Coordination - Nancy Munroe RN - 11/29/2023 12:21 PM EDT Care Managment Initial Assessment Date: 11/29/2023 Patient Name: Maria De Jesus Hogan : 1965 Patient Information Source of Information: Patient Cognition/Language: WFL - Within Functional Limits Permission given to speak with patient appeals representative/caregiver as indicated: Confirmation of Payer with patient/family: Yes Payer Name: Annemarie JOSE ANGEL : No Confirmation of Primary Care Physician: Confirmed PCP Name: Dr. Lynda Rasheed Seen in last 2 years?: Yes Primary Caregiver: Self If assistance needed, confirmed caregiver ready, willing and able to care for patient at discharge:Yes Confirmed with: Per pt: Judy is able [...] Living Prescription Coverage: Yes Pharmacy Used: [facility] [place] Medication Management: Independent Transportation/Shopping: Independent Transportation Mode: [...] routinely. Has insurance and prescription coverage, uses [facility] in [place]. Patient denies any financial difficulties. Plan to DC home with ETOH treatment when medically stable. Patient verbalizes understanding and is in agreement with POC. Nancy Munroe RN [facility] HospitalRvdszt21-44-0377 Note* Care Coordination - Raina Salgado - 11/29/2023 12:10 PM EDT Outpatient Behavioral Health Services Case Management/Care Coordination Note Date of Contact: 11/29/23 Start Time: 12:10 PM End Time: 12:20 PM Duration: 10 mins Type of Contact: Vpry-[id number]-Psqd Patient's Identified Case Management/Care Coordination Need(s) addressed [...] describing services. Staff discussed location of program, typesof programming, length of groups and pt's previous experiences with IOP through Addiction Medicine at [facility]. Note Any Anticipated Barriers: Pt stated [...] he had recently gone through Detox at [facility] and other IOP services and it had helped in the past. [facility] HospitalQmuawd94-49-4154 Note* Care Coordination - Raina Salgado - 11/29/2023 12:10 PM EDT Outpatient Behavioral Health Services Case Management/Care Coordination Note Date of Contact: 11/29/23 Start Time: 12:10 PM End Time: 12:20 PM Duration: 10 mins Type of Contact: Dtqn-[id number]-Sosc Patient's Identified Case Management/Care Coordination Need(s) addressed [...] describing services. Staff discussed location of program, typesof programming, length of groups and pt's previous experiences with IOP through Addiction Medicine at [facility]. Note Any Anticipated Barriers: Pt stated [...] he had recently gone through Detox at [facility] and other IOP services and it had helped in the past. [facility] HospitalDfacti56-60-3384 History of Present illness Narrative* Saurabh Moran MD - 11/29/2023 11:30 AM EDT Hospitalist Progress Note 11/29/2023 [id number]: Please page me ([phone]) for patient care issues. [phone]: Please page [facility] Hospitalist for any issues. Subjective: Admit Date: 11/27/2023 PCP: Lynda Rasheed MD Room#: B4-466/B4-466 A Interval History: Patient states he is feeling pretty good today. Denies feeling anxious or jitteryright now. Denies chest pain or sob. No abdominal pain, nausea, vomiting. No fevers or chills. He denies any new complaints Adult diet Regular @[id number]@ 24HR INTAKE/OUTPUT: No intake or output data [...] recommend to continue as needed Ativan per CIWA protocol. Also, Addiction med states patient is open to IOP after he is chemically detoxed.They will arrange for counselor to speak with him. I spoke with . He states he is plan for possible discharge tomorrow. -Continue thiamine and folate. Extended Emergency Contact Information Primary Emergency Contact: Samira Mobile Relation: Spouse Saurabh Moran MD Division of Hospitalist Medicine Inpatient Medical Services/[facility] PAGER: Epic chat * Mae Rob - 11/29/2023 10:54 AM EDT Nutrition rescreen completed. Chart reviewed. 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 * Luis Branch MD - 11/29/2023 9:14 AM EDT Images from the original note were not included. ADDICTION MEDICINE PROGRESS NOTE Patient: Maria De Jesus Hogan __ Problem List: Principal Problem: Alcohol withdrawal syndrome [...] disorder with acute intoxication. Addiction medicine was consultedto assist with chemical detox. Patient seen and examined this AM. He reports that he has been doingvery well since last night. Notes he slept [...] medications: acetaminophen OR acetaminophen, aluminum & magnesium hydroxide-simethiconeOR calcium carbonate, LORazepam OR LORazepam OR LORazepam OR LORazepam OR LORazepam OR LORazepam OR LORazepam OR LORazepam, nicotine polacrilex, ondansetron ODT ORondansetron, polyethylene glycol (PEG) 3350 Continuous Inpatient Infusions Recent Imaging ECG 12 lead Result Date: 11/28/2023 Sinus tachycardia Probable left atrial enlargement RSR' in V1 or V2, right VCD or RVH Borderline T abnormalities, anterior leads No significant changes compared to 07/27/2023 Electronically Signed [id number] 04:56:24 EDT by Val Torres Labs CBC: [...] symptoms. Medical stabilization as per primary team. Production Cook to coordinate aftercare. Patient to follow up with me in office on December 06 2023 at 10:00 AM for Vivitrol injection - LOCATION: [facility]. Will follow. I reviewed the patient's medical record, and reviewed test results. I educated and then counseled the patient on any substance use disorder or chemical dependency related issues. This included a faceto face evaluation and physical examination, and coordinating care on a substance use disorder treatment plan as well as documenting clinical information on the day of visit. documented in this [facility]08-29-2024 Emergency department Note* Judy Higgins RN - 11/28/2023 4:50 PM EDT Unit made aware of impending patient transport to the unit via broadcast. Judy Higgins RN 11/28/23 1650 [facility] HospitalLrmcqy15-59-1634 Emergency department Note* Judy Higgins RN - 11/28/2023 4:50 PM EDT Unit made aware of impending patient transport to the unit via broadcast. Judy Higgins RN 11/28/23 1650 * Gris Dillon RN - 11/28/2023 2:59 PM EDT O2 turned up to 4L NC due to low saturation in 70's while sleeping Gris Dillon RN 11/28/23 1500 * Gris Dillon RN - 11/28/2023 2:00 PM EDT 2L NC applied due to O2 sat in 80's while sleeping Gris Dillon RN 11/28/23 1425 * Larry Avila RN - 11/27/2023 11:16 PM EDT The following are the next steps in your Substance use Treatment Plan: Get admitted to detox then Vivitrol, IOP, and therapy afterwards. Please make sure you follow up after getting discharged from the hospital. Below are additional resources that you may find beneficial in your treatment: 12-Step: Heroin Anonymous : Dayne Palm.: [phone], Luis Fernando Cloud: [phone] Narcotics Anonymous: 888-GET_HOPE (489-522-1433) nabuckeye.org Alcohol Anonymous: akronaa.org Cocaine Anonymous: https://www.caohio.org/meetings/akronmeetings, NarAnon: 239.218.8044: 12-step program for families & friends of people with addiction. CRISIS: Homeless Hotline: 160.626.6776 Domestic Violence help line anytime: 621.447.5990 Crisis Hotline: 22/10- 917.791.9326 ADM Addiction Helpline: 467.897.6395 (available 8:30 AM to 4:00 PM ) 2-05-02-1 helps people across [facility] find local resources when they don't know where to turn forhelp. We are available 24 hours a day, 7 days a week. For help, simply dial to speak to one of our trained professionals. METHADONE TREATMENT: [facility], [place] [phone] [facility], [place] [phone] [facility], [place] [phone] [facility], [place] [phone] [facility]- [phone] ext. [phone] [facility] ([place])- [phone] DETOX TREATMENT: [facility]: anytime @ [phone] for alcohol & drug addiction help. [facility], [place] [phone] [facility] coordination: [phone] (Medicare not accepted) [facility] [place]: [phone] ([place] Medicaid not accepted) [facility], [place]: [phone] ([place] Medicaid not accepted) [place], [place]: [phone] (Will Coordinate Transportation) [facility] [place]: [phone] [place], [place]: [phone], [facility] [place]: [phone] [place], [place] [phone] [facility] [place] [facility] [place], [place]: [phone] (Will Coordinate Transportation) [place], [place] [phone] ext. [phone] [place], [place] (pt. must be medically cleared prior to admission in ED) [place], [place] [phone] [place], [place]: [phone] ([place] Medicaid not accepted) [place], [place] [phone] (Will Coordinate Transportation) [phone] OUTPATIENT TREATMENT: [facility] Addiction Medicine @ [facility] [place], [place] [phone] [facility]: Inpatient or Outpatient- [phone] 1st Step MAT Program @ [facility] ED: [phone] 1st Step MAT Program @ [facility] ED: [phone] 1st Step MAT Program @ [facility] ED: [phone], INTENSIVE OUTPATIENT PROGRAMS @ [facility], [place], [place] [phone] [place], [place] [phone] [place], [place] [phone] [place], [place] [phone] [facility]: [phone] [facility], [place], [place] [phone] [facility], [place], [facility], [place]: [phone], [place]: [phone] [place], [place]: [phone] [facility], [place]: [phone], [place]: [phone] [facility]: [phone]; [place]: [phone] [facility] Center[facility] (Emphasis on minorities): https://www.VanksenronKrillionop.Geofeedia, [place], [place] [phone] [facility] SERVICES: Jarred Caruso & [place], [place]: [phone] [place] Mervin Schultz Plaza[place], [place] [phone] [facility], [place], [place] [phone] [facility] [phone] [facility] SERVICES: One [employer] (180): [place], [place] [phone] [facility] [employer] SHE[employer] & [place]: [phone] RESIDENTIAL TREATMENT FACILITIES: [facility] [place], [place] [phone] (admission coordinated by -Tea Landers ext [phone]) [facility] [place]: [phone]; Men's services inpt. & women services -Outpt. [place], [place] [phone] [facility], [place], [place] [phone] [facility], [place], [place] [phone] [facility], [place], [place] [phone] [facility] [place], [place] [phone] [facility], [place], [place] [phone] [facility] - [place], [place] [phone] [facility], [place], [place]-[facility], [facility] [phone] Scientologist [facility] CenterJimdo - Peer Sheet Manufacturing Supervisor service: [phone] [facility]: [phone] ext. [phone] Medicaid Health Coverage: [facility]: [phone] Larry Avila RN 11/27/23 2318 * Larry Avila RN - 11/27/2023 11:08 PM EDT Detox rules read and signed by patient. Witnessed by this RN. Larry Avila RN 11/27/23 2304 * Steve Demarco MD - 11/27/2023 8:21 PM EDT EMERGENCY DEPARTMENT ENCOUNTER Pt Name: Maria De [...] period of sobriety while he was in longterm although appears that his last time in [...] withdrawal, with unspecified complication (HCC) 10/02/2019 Alcoholism ([facility]/HCC) (HCC) Anxiety Arthritis Maria De Jesus Cerebral artery occlusion with cerebral infarction (HCC) Cerebrovascular disease Depression GERD (gastroesophageal reflux disease) Maria De Jesus Hypertension Insomnia SURGICAL HISTORY Past Surgical History: Procedure Laterality Date COLONOSCOPY 06/10/2020 EGD/Dr Madison/Janis CYST REMOVAL face EGD (HISTORICAL) 07/23/2022 Dr. Estrella-[facility] SMALL INTESTINE SURGERY UPPER GASTROINTESTINAL ENDOSCOPY 09/27/2021 normal WISDOM TOOTH EXTRACTION CURRENT MEDICATIONS Discharge Medication List as of 11/30/2023 10:39 AM CONTINUE these medications which have NOT CHANGED Details acamprosate (Campral) 333 MG EC tablet Take 1 tablet (333 mg) by mouth 3 times daily. Do not crush,chew, or split., Starting Sat07/31/2023, Until Sat08/30/2023, Normal albuterol 108 (90 Base) MCG/ACT inhaler Inhale 2 puffs every 6 hours as needed for wheezing or shortness of breath., Starting Mounika 08/01/2023, Normal calcipotriene (Dovonex) 0.005 % cream Apply [...] Depression Sister Maria De Jesus Hogan Other ([id number]) Sister Maria De Jesus Hogan agoraphobia Arthritis Sister Maria De Jesus Hogan Cancer Mother Maria De Jesus oHgan colon rectal cancer; dx after age 50 Other ([id number]) Mother Maria De Jesus Hogan alcoholism Alcohol abuse Mother Maria De Jesus Hogan Stroke Mother Maria De Jesus Hogan Other ([id number]) Father Maria De Jesus Hogan h/o rheumatic [...] 0 min Stress: Stress Concern Present (07/28/2023) [place] [employer] Occupational [employer] - Occupational Stress Questionnaire Feeling of Stress : To some extent Social Connections: Moderately Isolated (07/28/2023) Social Connection and Isolation Panel [NHANES] Frequency of Communication with Friends and Family: Twice a week Frequency of Social Gatherings with Friends and Family: Once a week Attends Taoist Services: Never Active Member of Clubs or [...] Housing in the Last Year: No SCREENINGS [place] Coma Scale Best Eye Response: Spontaneous Best [...] for medical treatment only. Analysis performed using non- forensic procedures. CBC (HEMOGRAM) - Abnormal Auto WBC [...] If confirmation is needed, request confirmation under separateorder. BASIC METABOLIC PANEL WITH MG REFLEX Narrative: The following orders were created for panel order Basic Metabolic Panel w/ Mg Reflex. Procedure Abnormality Status --------- ------ Basic metabolic panel[[id number]] Abnormal Final result Please view results for [...] otherwise we will obtain clearance for detox andif medically cleared will discuss with detox provider [...] TIME PATIENT REFERRED TO: Lynda Rasheed MD [address] [facility] [address] [facility] [address] DISCHARGE MEDICATIONS: Discharge Medication List as of [...] are any questions or concerns please feel freeto contact the dictating provider for clarification.) Steve Demarco MD (electronically signed) Emergency Medicine Provider [facility] Steve Demarco MD 11/30/23 1518 * Val Fragoso MD - 11/27/2023 8:21 PM EDT Emergency Department Encounter Location: [facility] ED Patient: Maria De Jesus Hogan : 1965 Date of evaluation: 11/27/2023 ED Provider: Val Fragoso MD [address] Maria De Jesus Hogan was checked out [...] states that he did have a period ofsobriety while in longterm. He states earlier in the ER he had gone through detox. He states he drinks about 8 tall boys a day. This is however a refill corrected with drinking straight. He says he feelsas though he is seeing things that are [...] for medical treatment only. Analysis performed using non- forensic procedures. CBC (HEMOGRAM) - Abnormal Auto WBC [...] If confirmation is needed, request confirmation under separateorder. No orders to display Final ED Course [...] sinus tachycardia with no ST elevations or depressionsconcerning for STEMI. No axis deviation appreciated. EKG with no significant change compared to previous EKGs on file. Patient received phenobarbital 97.2 mg. On reevaluation patient continues to be t achycardic. Received a dose of lorazepam 2 mg. [...] are mis-transcribed.) Val Fragoso MD Acute Care [facility] Val Fragoso MD 11/28/23 0515 documented in this [facility]08-29-2024 Emergency department Note* Gris Dillon RN - 11/28/2023 2:59 PM EDT O2 turned up to 4L NC due to low saturation in 70's while sleeping Gris Dillon RN 11/28/23 1500 [id number] Emergency department Note* Gris Dillon RN - 11/28/2023 2:00 PM EDT 2L NC applied due to O2 sat in 80's while sleeping Gris Dillon RN 11/28/23 [address] [id number] Consult note* Luis Branch MD - 11/28/2023 9:33 AM EDT Associated Order(s): IP CONSULT TO ADDICTION MEDICINE Images from the original note were not included. ADDICTION MEDICINE CONSULTATION H&P Patient: Maria De Jesus Hogan Admit Date: 11/27/2023 Primary Care Physician: Lynda Rasheed MD Reason for Consultation: I need help to quit drinking. __ HISTORY OF PRESENT ILLNESS Chief Complaint Patient [...] disorder with acute intoxication. Addiction medicine was consultedto assist with chemical detox. Pt reports that he has been drinking for a long time notes that hehas only had 1 year of sobriety which ended 5 years ago when my mother . Pt states that his 1year of sobriety was brought on due to a DUI and court ordered treatment. He attended chemical detox and then IOP but cannot recall what IOP he attended. He denies any other legal issues noting thistime, its for me. I just want to [...] but Pt cannot recall where. Detoxifications: x1 [facility] (per Pt). 12 Step Meetings: Has [...] CYST REMOVAL face EGD (HISTORICAL) 07/23/2022 Dr. Estrella-[facility] SMALL INTESTINE SURGERY UPPER GASTROINTESTINAL ENDOSCOPY 09/27/2021 normal WISDOM TOOTH EXTRACTION Family History Family History Problem Relation Name Age of Onset Depression Sister Maria De Jesus Hogan Other ([id number]) Sister Maria De Jesus Hogan agoraphobia Arthritis Sister Maria De Jesus Hogan Cancer Mother Maria De Jesus Hogan colon rectal cancer; dx after age 50 Other ([id number]) Mother Maria De Jesus Hogan alcoholism Alcohol abuse Mother Maria De Jesus Hogan Stroke Mother Maria De Jesus Hogan Other (94089) Father Maria De Jesus Hogan h/o rheumatic [...] 0 min Stress: Stress Concern Present (07/28/2023) [employer] [place] [employer] - Occupational Stress Questionnaire Feeling of Stress : To some extent Social Connections: Moderately Isolated (07/28/2023) Social Connection and Isolation Panel [NHANES] Frequency of Communication with Friends and Family: Twice a week Frequency of Social Gatherings with Friends and Family: Once a week Attends Taoist Services: Never Active Member of Clubs or [...] Year: No Utilities: Not At Risk (07/28/2023) [facility] Utilities Threatened with loss of utilities: [...] significant changes compared to 07/27/2023 Electronically Signed [id number] 04:56:24 EDT by Ravti Recent Results (from the past 48 hour(s)) [...] 338 ms QTC Interval 463 ms P [place] 77 degrees QRS [place] 85 degrees T Wave [place] 56 degrees RI Interval 158 ms CBC auto differential Collection [...] medications: acetaminophen OR acetaminophen, aluminum & magnesium hydroxide-simethiconeOR calcium carbonate, LORazepam OR LORazepam OR LORazepam OR LORazepam OR LORazepam OR LORazepam OR LORazepam OR LORazepam, nicotine polacrilex, ondansetron ODT ORondansetron, polyethylene glycol (PEG) 3350 Continuous Inpatient Infusions [...] symptoms. Medical stabilization. Labs/tests/tasks to review: None. Production Cook to coordinate care with aftercare program. Will follow. I reviewed the patient's medical record, and reviewed test results. I educated and then counseled the patient on any substance use disorder or chemical dependency related issues. This included a faceto face evaluation and physical examination, and coordinating care on a substance use disorder treatment plan as well as documenting clinical information on the day of visit. [facility] HospitalYggswl07-70-0122 Consult note* Luis Branch MD - 11/28/2023 9:33 AM EDT Associated Order(s): IP CONSULT TO ADDICTION MEDICINE Images from the original note were not included. ADDICTION MEDICINE CONSULTATION H&P Patient: Maria De Jesus Hogan Admit Date: 11/27/2023 Primary Care Physician: Lynda Rasheed MD Reason for Consultation: I need help to quit drinking. __ HISTORY OF PRESENT ILLNESS Chief Complaint Patient [...] disorder with acute intoxication. Addiction medicine was consultedto assist with chemical detox. Pt reports that he has been drinking for a long time notes that heulicess only had 1 year of sobriety which ended 5 years ago when my mother . Pt states that his 1year of sobriety was brought on due to a DUI and court ordered treatment. He attended chemical detox and then IOP but cannot recall what IOP he attended. He denies any other legal issues noting thistime, its for me. I just want to [...] but Pt cannot recall where. Detoxifications: x1 [facility] (per Pt). 12 Step Meetings: Has [...] CYST REMOVAL face EGD (HISTORICAL) 07/23/2022 Dr. Estrella-[facility] SMALL INTESTINE SURGERY UPPER GASTROINTESTINAL ENDOSCOPY 09/27/2021 normal WISDOM TOOTH EXTRACTION Family History Family History Problem Relation Name Age of Onset Depression Sister Maria De Jesus Hogan Other (66630) Sister Maria De Jesus Hogan agoraphobia Arthritis Sister Maria De Jesus Hogan Cancer Mother Maria De Jesus Hogan colon rectal cancer; dx after age 50 Other ([id number]) Mother Maria De Jesus Hogan alcoholism Alcohol abuse Mother Maria De Jesus Hogan Stroke Mother Maria De Jesus Hogan Other (16365) Father Maria De Jesus Hogan h/o rheumatic [...] 0 min Stress: Stress Concern Present (07/28/2023) [employer] [place] [employer] - Occupational Stress Questionnaire Feeling of Stress : To some extent Social Connections: Moderately Isolated (07/28/2023) Social Connection and Isolation Panel [NHANES] Frequency of Communication with Friends and Family: Twice a week Frequency of Social Gatherings with Friends and Family: Once a week Attends Taoist Services: Never Active Member of Clubs or [...] Year: No Utilities: Not At Risk (07/28/2023) [facility] Utilities Threatened with loss of utilities: [...] significant changes compared to 07/27/2023 Electronically Signed [id number] 04:56:24 EDT by Val BRADSHAW Recent Results [...] 338 ms QTC Interval 463 ms P [place] 77 degrees QRS [place] 85 degrees T Wave [place] 56 degrees RI Interval 158 ms CBC auto differential Collection [...] medications: acetaminophen OR acetaminophen, aluminum & magnesium hydroxide-simethiconeOR calcium carbonate, LORazepam OR LORazepam OR LORazepam OR LORazepam OR LORazepam OR LORazepam OR LORazepam OR LORazepam, nicotine polacrilex, ondansetron ODT ORondansetron, polyethylene glycol (PEG) 3350 Continuous Inpatient Infusions [...] symptoms. Medical stabilization. Labs/tests/tasks to review: None. Production Cook to coordinate care with aftercare program. Will follow. I reviewed the patient's medical record, and reviewed test results. I educated and then counseled the patient on any substance use disorder or chemical dependency related issues. This included a faceto face evaluation and physical examination, and coordinating care on a substance use disorder treatment plan as well as documenting clinical information on the day of visit. documented in this [facility]08-29-2024 History and physical note* Shelly Cruz MD - 11/28/2023 1:58 AM EDT History and Physical [facility] Maria De Jesus Hogan : 1965 [...] CYST REMOVAL face EGD (HISTORICAL) 07/23/2022 Dr. Estrella[facility] SMALL INTESTINE SURGERY UPPER GASTROINTESTINAL ENDOSCOPY 09/27/2021 [...] Depression Sister Maria De Jesus Hogan Other ([id number]) Sister Maria De Jesus Hogan agoraphobia Arthritis Sister Maria De Jesus Hogan Cancer Mother Maria De Jesus Hogan colon rectal cancer; dx after age 50 Other ([id number]) Mother Maria De Jesus Hogan alcoholism Alcohol abuse Mother Maria De Jesus Hogan Stroke Mother Maria De Jesus Hogan Other (91371) Father Maria De Jesus Hogan h/o rheumatic [...] without any focal sensory/motor deficits. Cranial nerves grosslyintact. Labs Admission on 11/27/2023 Component Date Value [...] problem he wants to quit he drinks severalbeers daily. He is requesting detox He was [...] home might need to be addressed if heintended did have a stroke in the past [...] and mechanical contraindicated 11/28/2023 Maria De Jesus [place] [id number] Any scheduled follow up appointments Future Appointments Date Time Provider Department Center 12/17/2023 3:00 PM Lynda Rasheed MD [facility] Contact Information Primary Emergency Contact: Mobile Relation: Spouse Portions of this note may be electronically transcribed. Please forward a copy of this H&P to the primary care physician. [facility] [employer] Work Phone: [phone] [facility]08-29-2024 History and physical note* Shelly Cruz MD - 11/28/2023 1:58 AM EDT History and Physical [facility] Maria De Jesus [place] : 1965 AGE 58 y.o. YEARS Note [...] CYST REMOVAL face EGD (HISTORICAL) 07/23/2022 Dr. Estrella-[facility] SMALL INTESTINE SURGERY UPPER GASTROINTESTINAL ENDOSCOPY 09/27/2021 [...] Depression Sister Maria De Jesus Hogan Other ([id number]) Sister Maria De Jesus Hogan agoraphobia Arthritis Sister Maria De Jesus Hogan Cancer Mother Maria De Jesus Hogan colon rectal cancer; dx after age 50 Other ([id number]) Mother Maria De Jesus Hogan alcoholism Alcohol abuse Mother Maria De Jesus Hogan Stroke Mother Maria De Jesus Hogan Other (57994) Father Maria De Jesus Hogan h/o rheumatic [...] without any focal sensory/motor deficits. Cranial nerves grosslyintact. Labs Admission on 11/27/2023 Component Date Value [...] problem he wants to quit he drinks severalbeers daily. He is requesting detox He was [...] home might need to be addressed if heintended did have a stroke in the past [...] mechanical contraindicated 11/28/2023 Maria De Jesus Hogan [id number] Any scheduled follow up appointments Future Appointments Date Time Provider Department Center 12/17/2023 3:00 PM Lynda Rasheed MD [facility] Contact Information Primary Emergency Contact: Samira Mobile Relation: Spouse Portions of this note may be electronically transcribed. Please forward a copy of this H&P to the primary care physician. documented in this [facility]08-29-2024 Nurse Note* Larry Avila RN - 11/28/2023 12:02 AM EDT Patient presents seeking inpatient admission for alcohol [...] drug use. Smokes 1.5 ppd of tobacco. [facility]admissions [facility] at [facility]. Is actually not allowed back on the detox unit at [facility] because of some incident that occurred in the past. States he tends to never follow up with therapy or other recommendations after detox. Completed IOP after which he was sober for a year, and it was the most soberhe has ever been. Has been to AA but stated it did not work for him. Has been on Vivitrol before and stated that It's worth it. CIWA 10. Main withdrawal symptoms include anxiety and nausea. Patientgiven 97.2 mg of phenobarbital. Per chart review, it looks like he has been on Campral before. Hx of neuropathy/chronic pain. Takes Gabapentin. Denies pain. BP WNL. Denies having a history of any ment al health issues. No daily meds. Denies HI or SI. States he wants to go to counseling/therapy to figure out what's in his head that causes him to continue to struggle with alcohol. States he likes todrink. Also likes the way it makes him feel normal. Does not like the withdrawals and feeling sick.Wants to get his mind right and figure [...] with his . Unemployed. 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 No legal concerns. Has a valid ID. is able to transport patient because he does not currently drive. [place] for health insurance coverage. Plan is to admit patient medically for detox at [facility]. Would also recommend that patient follow up with IOP on discharge. Patient seemed interested in Vivitrol. Patient provided with a list of treatment re sources in addition to First Step, IOP, Vivitrol, and Scientologist [facility] Peer Sheet Manufacturing Supervisor Service pamphlets. [facility] HospitalDhrjps83-73-2298 NoteNOTE: This result is for medical treatment only. Analysis performed using non-forensic procedures. [facility] [id number] Emergency department Note* Larry Avila RN - 11/27/2023 11:16 PM EDT The following are the next steps in your Substance use Treatment Plan: Get admitted to detox then Vivitrol, IOP, and therapy afterwards. Please make sure you follow up after getting discharged from the hospital. Below are additional resources that you may find beneficial in your treatment: 12-Step: Heroin Anonymous : Dayne Gray: [phone], Luis Fernando Cloud: [phone] Narcotics Anonymous: 888-GET_HOPE (524-822-3052) Citylabse.org Alcohol Anonymous: akronaa.org Cocaine Anonymous: https://www.Surf Airo.org/meetings/akelizamemarino, [place]: 727.421.6259: 12-step program for families & friends of people with addiction. CRISIS: Homeless Hotline: 935.783.6590 Domestic Violence help line anytime: 754.232.6881 Crisis Hotline: 394.491.4668 [facility] Addiction Helpline: 183.518.2550 (available 8:30 AM to 4:00 PM ) helps people across [facility] find local resources when they don't know where to turn forhelp. We are available 24 hours a day, 7 days a week. For help, simply dial to speak to one of our trained professionals. METHADONE TREATMENT: [facility], [place] [phone] [facility] [place], [place] [phone] [facility], [place] [phone] [facility], [place] [phone] [facility]- [phone] ext. [phone] [facility] ([facility])- [phone] DETOX TREATMENT: [facility] Crisis Center: anytime @ [phone] for alcohol & drug addiction help. [facility], [place] [phone] [facility] coordination: [phone] (Medicare not accepted) [facility] [place]: [phone] ([place] Medicaid not accepted) [facility] [place]: [phone] ([place] Medicaid not accepted) [place], [place]: [phone] (Will Coordinate Transportation) [facility] [place]: [phone] [place], [place]: [phone], [facility] [place]: [phone] [place], [place] [phone] [facility] [place]: [phone] (Will Coordinate Transportation) [place], [place] [phone] ext. [phone] [place], [place] (pt. must be medically cleared prior to admission in ED) [place], [place] [phone] [place], [place]: [phone] ([place] Medicaid not accepted) [facility] [place]m [place], [place] [phone] (Will Coordinate Transportation) [phone] OUTPATIENT TREATMENT: [facility] Addiction Medicine @ [facility] [place], [place] [phone] [facility]: Inpatient or Outpatient- [phone] 1st Step MAT Program @ [facility] ED: [phone] 1st Step MAT Program @ [facility] ED: [phone] 1st Step MAT Program @ [facility] ED: [phone], INTENSIVE OUTPATIENT PROGRAMS @ [place], [place] [phone] [place], [place] [phone] [place], [place] [phone] [place], [place] [phone] [facility]: [phone] [facility], [place], [place] [phone] [facility], [place], [facility], [place]: [phone], [place]: [phone] [place], [place]: [phone] [facility], [place]: [phone], [place]: [phone] [facility]: [phone]; [place]: [phone] [facility] (Emphasis on minorities): https://www.[employer].Geofeedia, [place], [place] [phone] [facility] SERVICES: Jarred Caruso & [place], [place]: [phone] [place], [place] [phone] [facility], [place], [place] [phone] [facility] [phone] [facility] SERVICES: One [employer] (180): KADEN Bland [phone] [employer] & [place]: [phone] RESIDENTIAL TREATMENT FACILITIES: [facility] [place], [place] [phone] (admission coordinated by -Tea Landers ext [phone]) [facility] [place], [place]: [phone]; Men's services inpt. & women services -Outpt. [place], [place] [phone] [facility], [place], [place] [phone] [facility] [place], [place] [phone] [place], [place] [phone] [facility] [place], [place] [phone] [facility] [place], [place] [phone] [facility] - [place], [place] [phone] [facility], [place], [place]-PHP, [facility] [phone] [employer] - Peer Sheet Manufacturing Supervisor service: [phone] [facility]: [phone] ext. [phone] Medicaid Health Coverage: Sp[employer] JFS: [phone] Larry Avila RN 11/27/23 7193 [facility] HospitalUqysmn66-82-1360 Emergency department Note* Larry Avila RN - 11/27/2023 11:08 PM EDT Detox rules read and signed by patient. Witnessed by this RN. Larry Avila RN 11/27/23 [address] [id number] Physician Emergency department Note* Steve Demarco MD - 11/27/2023 8:21 PM EDT EMERGENCY DEPARTMENT ENCOUNTER Pt Name: Maria De [...] period of sobriety while he was in longterm although appears that his last time in [...] Alcoholism (CMS/HCC) (HCC) Anxiety Arthritis Maria De Ejsus Cerebral artery occlusion with cerebral infarction (HCC) Cerebrovascular disease Depression GERD (gastroesophageal reflux disease) Maria De Jesus Hypertension Insomnia SURGICAL HISTORY Past Surgical History: Procedure Laterality Date COLONOSCOPY 06/10/2020 EGD/Dr Madison/AMANDA CYST REMOVAL face EGD (HISTORICAL) 07/23/2022 Dr. Estrella-[facility] SMALL INTESTINE SURGERY UPPER GASTROINTESTINAL ENDOSCOPY 09/27/2021 normal WISDOM TOOTH EXTRACTION CURRENT MEDICATIONS Discharge Medication List as of 11/30/2023 10:39 AM CONTINUE these medications which have NOT CHANGED Details acamprosate (Campral) 333 MG EC tablet Take 1 tablet (333 mg) by mouth 3 times daily. Do not crush,chew, or split., Starting Sat07/31/2023, Until Sat08/30/2023, Normal albuterol 108 (90 Base) MCG/ACT inhaler Inhale 2 puffs every 6 hours as needed for wheezing or shortness of breath., Starting Mounika 08/01/2023, Normal calcipotriene (Dovonex) 0.005 % cream Apply topically 2 times daily., Starting Sat06/26/2023, Normal gabapentin (Neurontin) 600 MG tablet Take 1 tablet (600 mg) by mouth 3 times daily., Starting Mounika 08/01/2023, Normal melatonin 5 MG tablet Take 1 [...] Depression Sister Maria De Jesus Hogan Other (17266) Sister Maria De Jesus Hogan agoraphobia Arthritis Sister Maria De Jesus Hogan Cancer Mother Maria De Jesus Hogan colon rectal cancer; dx after age 50 Other ([id number]) Mother Maria De Jesus Hogan alcoholism Alcohol abuse Mother Maria De Jesus Hogan Stroke Mother Maria De Jesus Hogan Other (52665) Father Maria De Jesus Hogan h/o rheumatic [...] 0 min Stress: Stress Concern Present (07/28/2023) [employer] [place] [employer] - Occupational Stress Questionnaire Feeling of Stress : To some extent Social Connections: Moderately Isolated (07/28/2023) Social Connection and Isolation Panel [NHANES] Frequency of Communication with Friends and Family: Twice a week Frequency of Social Gatherings with Friends and Family: Once a week Attends Taoist Services: Never Active Member of Clubs or [...] for medical treatment only. Analysis performed using non- forensic procedures. CBC (HEMOGRAM) - Abnormal Auto WBC [...] If confirmation is needed, request confirmation under separateorder. BASIC METABOLIC PANEL WITH MG REFLEX Narrative: The following orders were created for panel order Basic Metabolic Panel w/ Mg Reflex. Procedure Abnormality Status --------- ------ Basic metabolic panel[[id number]] Abnormal Final result Please view results for [...] tablet 97.2 mg (97.2 mg Oral Given 11/27/232) LORazepam (Ativan) tablet 2 mg (2 mg Oral Given 11/28/23 0224) With concern for alcohol withdrawal PROCEDURES: Unless otherwise noted below, none Procedures Differential Diagnosis Considerations: Alcohol withdrawal Sources of History: Patient ED Course: Vital signs with mild tachycardia we will give him dose of phenobarbital for alcohol withdrawal symptoms. Will consult ACC coordinator if still around otherwise we will obtain clearance for detox andif medically cleared will discuss with detox provider [...] TIME PATIENT REFERRED TO: Lynda Rasheed MD [address] [facility] [address] [facility] [address] DISCHARGE MEDICATIONS: Discharge Medication List as of [...] are any questions or concerns please feel freeto contact the dictating provider for clarification.) Steve Demarco MD (electronically signed) Emergency Medicine Provider [facility] Steve Demarco MD 11/30/23 [address] [employer] Phone: [phone] 516-641808-28-2024 Physician Emergency department Note* Val Fragoso MD - 11/27/2023 8:21 PM EDT Emergency Department Encounter Location: [facility] ED Patient: Maria De Jesus Hogan : 1965 Date of evaluation: 11/27/2023 ED Provider: Val Fragoso MD 7703 Maria De Jesus oHgan was checked out to me by Dr Demarco. Please see his/her initial documentation for details of the patient's initial ED presentation, physical exam and completed studies. In brief, Maria De Jesus Hogan is a 58 y.o. male history of alcohol abuse that presented to the emergency department for evaluation for alcohol withdrawal. Patient states that he did have a period ofsobriety while in longterm. He states earlier in the ER he had gone through detox. He states he drinks about 8 tall boys a day. This is however a refill corrected with drinking straight. He says he feelsas though he is seeing things that are [...] for medical treatment only. Analysis performed using non- forensic procedures. CBC (HEMOGRAM) - Abnormal Auto WBC [...] If confirmation is needed, request confirmation under separateorder. No orders to display Final ED Course [...] sinus tachycardia with no ST elevations or depressionsconcerning for STEMI. No axis deviation appreciated. EKG with no significant change compared to previous EKGs on file. Patient received phenobarbital 97.2 mg. On reevaluation patient continues to be t achycardic. Received a dose of lorazepam 2 mg. Discussed patient with detox medicine. Patient not a candidate for detox medicine at this time. As a result patient discussed with inpatient admitting provider who accepted patient for admission. Admitted in stable condition. Medications LORazepam (Ativan) tablet 2 mg (has no administration in time range) PHENobarbital tablet 97.2 mg (97.2 mg Oral Given 11/27/23 282) Final Impression 1. 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 Efforts were made to edit the dictations but occasionally words are mis-transcribed.) Val Fragoso MD Acute Care [facility] Val Fragoso MD 11/28/23 0515 [facility] [id number] Telephone encounter Note* Telephone Encounter - Lynda Rasheed MD - 08/01/2023 1:47 PM EDT Go ahead and send the prescriptions. However no further refills until patient is evaluated. We schedule an appointment with him. If unable to come in person I will okay him doing a virtual. Please pend the scripts needed refilled please [facility] [id number] Miscellaneous Notes* Telephone Encounter - Lynda Rasheed MD - 08/01/2023 1:47 PM EDT Go ahead and send the prescriptions. However no further refills until patient is evaluated. We schedule an appointment with him. If unable to come in person I will okay him doing a virtual. Please pend the scripts needed refilled please documented in this encounterSumma [id number] History of Present illness Narrative* Lauren Irby RN - 07/31/2023 1:11 PM EDT 1305: Discrepancy made in pyxis for Gabapentin [...] was the correct way to fix it. * Yasemin Abdul RN - 07/31/2023 4:40 AM EDT Patient up, social with peers with appropriate behavior. Patient has a good diet, taking in food/fluids. Patient is able to make needs known. * Robyn Edmond APRN - PARADI TENDER - 07/30/2023 5:20 PM EDT Addiction Team Progress Note July 30, 2023Saturday ACTIVE PROBLEMS: Alcohol Dependence Alcohol Withdrawal When seen, awake fully oriented to person, place, time, situation; coherent, lucid Euthymic mood with congruent affect Talked with me re: desire for discharge tomorrow; Says he needs to return to work to avoid termination Says he has leny't for Intensive Outpt Program at [facility] and is open to attending AA meetings, [...] care tomorrow Robyn Edmond APRN DNP [facility] * Virgilio Bone RN - 07/30/2023 4:33 PM EDT Patient calm and cooperative with assessment and medications. Patient verbalizes plans to go to IOP. Patient has been on RA no issues. Patient has been ambulating hallways, independent and steady. Nocomplaints of pain. Patient denies any withdrawal symptoms. No SI/HI/AVH. Patient is discharge focused and would like to leave tomorrow. Patient started Campral this shift no s/s of adverse reactionspatient encouraged to voice any concerns to staff. * Katherine Ortiz RCP - 07/30/2023 9:29 AM EDT [facility] Respiratory Care Department Progress Note As part of the Respiratory Assessment Program (RAP), the following Respiratory Therapist evaluationhas been completed, including a chart review and [...] Respiratory in the care of this patient, * Yasemin Abdul RN - 07/30/2023 4:42 AM EDT Patient up, social with appropriate behavior. Patient takes medication with ease. Patient is able to make needs known. * Yasemin Abdul RN - 07/29/2023 9:27 PM EDT Respiratory notified for breathing treatment. * Tiki Ponce APRN - JUSTEN - 07/29/2023 1:19 PM EDT Addiction Medicine Progress Note Patient: Maria De [...] PRN medications: acetaminophen, albuterol, aluminum & magnesium hydroxide- simethicone, hydrOXYzine pamoate, loperamide, magnesium hydroxide, nicotine polacrilex, [...] - labs/tests/tasks to review: none Recovery plan: MANAGER SITE plan for further addiction treatment at [facility] JUAN Rothman NP Addiction Medicine 07/29/2023 at 1:24 PM Note: Narrative portions of note written using Scanadu dictation software. Efforts are made to dictate clearly and proofread but errors in dictation still may occur. Please reach out to author with any clarifying questions. * Tracy Davies RN - 07/29/2023 11:58 AM EDT Pt awake in bed. Pt A&O x 4. Denies S/I. Denies A/V hallucination. SPO2 93% RA. Pt has mild hand tremor, moist palms. Pt medicated per MAR. Eating and drinking okay. Denies pain. Pt will continueto be monitored for safe * Jazlyn Huggins - 07/29/2023 7:56 AM EDT Nutrition rescreen completed. Patient assigned a level 1. documented in this encounterSNewark [id number] Note* Care Coordination - BENNIE Solis - 07/31/2023 12:53 PM EDT Patient to be overheard in another patient's room discussing their treatment plans and aftercare. Patient providing his own recommendations on MAT services for patient despite not knowing patient's medical history of Borup. Patient has been informed to not involve himself in other patients care or be intrusive with treatment plans. Patient then came to MANAGER SITE's office while she was talking to resident. Patient begins to ask questions about leaving AMA. MANAGER SITE noted that patient is already being discharged and why would he inquire about leaving AMA. Patient did acknowledge that he was asking questions for another patient. MANAGER SITE explained to patient again that he needs to not involve himself with other patients aftercare plans and that she cannot discuss other patients medical care with him at current time. Patient then leaves MANAGER SITE's office and is overheard in another patient's room discussing information with her which was inappropriate. Patient that he was discussing with became distraught crying and yelling from her room. All information shared with nurse practitioner. [facility] [id number] Note* Care Coordination - BENNIE Solis - 07/31/2023 12:53 PM EDT Patient to be overheard in another patient's room discussing their treatment plans and aftercare. Patient providing his own recommendations on MAT services for patient despite not knowing patient's medical history of Borup. Patient has been informed to not involve himself in other patients care or be intrusive with treatment plans. Patient then came to MANAGER SITE's office while she was talking to resident. Patient begins to ask questions about leaving AMA. MANAGER SITE noted that patient is already being discharged and why would he inquire about leaving AMA. Patient did acknowledge that he was asking questions for another patient. MANAGER SITE explained to patient again that he needs to not involve himself with other patients aftercare plans and that she cannot discuss other patients medical care with him at current time. Patient then leaves MANAGER SITE's office and is overheard in another patient's room discussing information with her which was inappropriate. Patient that he was discussing with became distraught crying and yelling from her room. All information shared with nurse practitioner. [facility] [id number] Miscellaneous Notes* Care Coordination - BENNIE Solis - 07/31/2023 12:53 PM EDT Patient to be overheard in another patient's room discussing their treatment plans and aftercare. Patient providing his own recommendations on MAT services for patient despite not knowing patient's medical history of Borup. Patient has been informed to not involve himself in other patients care or be intrusive with treatment plans. Patient then came to MANAGER SITE's office while she was talking to resident. Patient begins to ask questions about leaving AMA. MANAGER SITE noted that patient is already being discharged and why would he inquire about leaving AMA. Patient did acknowledge that he was asking questions for another patient. MANAGER SITE explained to patient again that he needs to not involve himself with other patients aftercare plans and that she cannot discuss other patients medical care with him at current time. Patient then leaves MANAGER SITE's office and is overheard in another patient's room discussing information with her which was inappropriate. Patient that he was discussing with became distraught crying and yelling from her room. All information shared with nurse practitioner. * Care Coordination - BENNIE Solis - 07/31/2023 12:05 PM EDT MANAGER SITE saw patient to discuss aftercare plans and treatment post discharge. Patient was reminded aboutfollow-up with [facility] 08/05/2023 at 1 PM. Patient still agreeable to aftercare plans. Patient denied current SI/HI/AVH. Patient reported that their would be picking them up from the hospital and taking them back home. Patient denied needing anything further from MANAGER SITE at the time. MANAGER SITE inform ed patient's nurse about conversation. * Care Coordination - BENNIE Solis - 07/31/2023 12:03 PM EDT While attempting to talk to another patient about discharge and aftercare plans this patient decided to stop in the hallway as well and attempt to listen to and engage in conversation about another patient's healthcare treatment and plans. MANAGER SITE explained to this patient that his need to involve himself and other patient's care was inappropriate and that he should continue to work his way to the other end of the hallway. Patient moved to the other end of the hallway as directed by MANAGER SITE. * Group Note - Aurora Camarena - 07/31/2023 11:56 AM EDT Department: [facility] Group Topic: Other [...] Jesus Hogan Date of : 1965 MR: [id number] Appearance: Good eye contact Affect: Appropriate Behavior: [...] Conversion reaction BPH (benign prostatic hyperplasia) Tachycardia * Group Note - Aurora Camarena - 07/30/2023 6:00 PM EDT Department: [facility] Group Topic: Other Group Date: [...] sensations and feelings. Discussion focuses on the processof change and areas of their lives they want to address. Name: Maria De Jesus Hogan Date of : 1965 MR: [id number] Appearance: Good eye contact Affect: Appropriate Behavior: [...] make to support their wellness. Patient reports wantingto work on changing his environment as was [...] Conversion reaction BPH (benign prostatic hyperplasia) Tachycardia * Care Coordination - BENNIE Solis - 07/30/2023 9:33 AM EDT Patient approached MANAGER SITE asking for assistance with scheduling IOP. Patient reports interest IOP at [facility]. MANAGER SITE will assist with scheduling appointment. MANAGER SITE called and scheduled patient for intake assessment at [facility] 08/05/2023 at 1:00pm. All information included inpatient's discharge paperwork. Electronically signed by BENNIE Solis on07/30/2023 at 9:39 AM * Care Plan - Tracy Davies RN - 07/29/2023 11:58 AM EDT Problem: Potential for Substance Withdrawal Goal: Verbalizes signs/symptoms of withdrawal Outcome: Progressing Goal: Reports signs/symptoms of withdrawal Outcome: Progressing Goal: Free of withdrawal symptoms Outcome: Progressing Problem: Drug Abuse/Detox Goal: Will have no detox symptoms and will verbalize plan for changing drug- related behavior Outcome: Progressing * Care Coordination - BENNIE Solis - 07/29/2023 8:04 AM EDT Behavioral Health Psycho-Social Assessment (Social Work) Date: 07/29/2023 Patient Name: Maria De Jesus Hogan : 1965 Identifying Information: Patient is a 57-year-old male admitted to for detox from alcohol. Patient is well-known to addiction medicine team as he was previously on the unit on 07/08/2023. Patient patient left the unit in 2023 with plans to engage at the [facility], patient reports however he did not [...] He has previous history of [facility] [place] [facility]. Patient has history of psychiatric admission. Reports admission was due to suicidal ideation while intoxicated Denies history of recent or past suicide attempts. Patient denies current SI/HI/AVH. Patient does have an extensive history of passive SI secondary to intoxication. Patient denies plan, intent, or method but reports more increased feelings of depression and sadness. Patient denies recentor past history of SIB. Substance Abuse/Use: Patient [...] Patient does have extensive history of falls whileintoxicated. Patient reports previous history of engagement with [...] poor nutrition and sleep secondary to his gomez bstance use. Legal/Trauma/ History: Patient denies any current legal issues. Patient reports past legal history of child support violations. Patient denies any history of childhood abuse. Patient does report however his father when he was 11 years old which was a traumatic incident to him. Patient denies any history of trauma abuse as an adult. Patient denies any history Orbisonia or status. Family Constellation/Childhood History: Patient reports that he is currently to his living in [facility]. Patient reports that he has 3 biological children and 4 stepchildren. Patient reports that his father in his 11 years old. Patient did not report his mother is stillalive currently. Patient was born and raised in [place], [place] by his mother and father. He reports that his father when he was 11 years old, and this was traumatic for him. Patient reports that he was raisedprimarily by his mother for the remainder of his childhood. He denies childhood abuse. Education/Work: Patient reports that he graduated high school. 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 Patient denies SSI/SSD. Cultural/Spirituality/Leisure: Patient denies any cultural needs or concerns at the current time. Patient denies identify any sikhism preference. It is unknown if patient is [...] (Patient has history of psychiatric admission. Reports admissionwas due to suicidal ideation while intoxicated. Denies [...] plan, intent, or method but reports more increasedfeelings of depression and sadness.) Activating Events (Recent): Current or pending isolation or feeling alone, Recent loss(es) or othersignificant negative event(s) (legal, financial, relationship, etc.) Describe:: [...] declined aftercare assistance while on the unit. MANAGER SITE will continue to work with patient to identify aftercare plans. Patient encouraged to engage in all activities thatare offered to them while they are on the unit. Patient report needing additional current time. Patient encouraged to seek out MANAGER SITE unit staff should they identify any additional [...] dictating provider for clarification. documented in this [facility]05-01-2024 Note* Care Coordination - BENNIE Solis - 07/31/2023 12:05 PM EDT MANAGER SITE saw patient to discuss aftercare plans and treatment post discharge. Patient was reminded aboutfollow-up with [facility] 08/05/2023 at 1 PM. Patient still agreeable to aftercare plans. Patient denied current SI/HI/AVH. Patient reported that their would be picking them up from the hospital and taking them back home. Patient denied needing anything further from [facility] at the time. MANAGER SITE inform ed patient's nurse about conversation. [facility] [id number] Note* Care Coordination - BENNIE Solis - 07/31/2023 12:05 PM EDT MANAGER SITE saw patient to discuss aftercare plans and treatment post discharge. Patient was reminded aboutfollow-up with [facility] 08/05/2023 at 1 PM. Patient still agreeable to aftercare plans. Patient denied current SI/HI/AVH. Patient reported that their would be picking them up from the hospital and taking them back home. Patient denied needing anything further from MANAGER SITE at the time. MANAGER SITE inform ed patient's nurse about conversation. [facility] [place] [facility] [id number] Note* Care Coordination - BENNIE Solis - 07/31/2023 12:03 PM EDT While attempting to talk to another patient about discharge and aftercare plans this patient decided to stop in the hallway as well and attempt to listen to and engage in conversation about another patient's healthcare treatment and plans. MANAGER SITE explained to this patient that his need to involve himself and other patient's care was inappropriate and that he should continue to work his way to the other end of the hallway. Patient moved to the other end of the hallway as directed by MANAGER SITE. [facility] [place] [facility] [id number] Note* Care Coordination - BENNIE Solis - 07/31/2023 12:03 PM EDT While attempting to talk to another patient about discharge and aftercare plans this patient decided to stop in the hallway as well and attempt to listen to and engage in conversation about another patient's healthcare treatment and plans. MANAGER SITE explained to this patient that his need to involve himself and other patient's care was inappropriate and that he should continue to work his way to the other end of the hallway. Patient moved to the other end of the hallway as directed by MANAGER SITE. [facility] [place] [facility] [id number] Group counseling note* Group Note - Aurora Camarena - 07/31/2023 11:56 AM EDT Department: [facility] ACTIVITIES THERAPY Group Topic: Other Group [...] Jesus Hogan Date of : 1965 MR: [id number] Appearance: Good eye contact Affect: Appropriate Behavior: [...] Conversion reaction BPH (benign prostatic hyperplasia) Tachycardia [facility] [place] [facility] [id number] Nurse Note* Lauren Irby RN - 07/31/2023 11:04 AM EDT Patient up and visible on the unit. Patient independent with ALDS and ambulation. Patient appetite,hygiene, and sleep adequate. Patient denies SI/HI/AVH thus far. Patient being discharged later in the day. Patient attended meetings when offered. Encouraged to approach staff with any concerns or ramin nges. Will monitor for safety. Patient has been intrusive with other patients. He has been going to rooms and offering unsolicitedmedical advice and recommendations for take home prescriptions and MAT services. Patient has been redirected and asked to not speak about others aftercare numerous times this shift. 1550: Patient discharged home at this time. Patient personal belongings returned and paperwork signed. Patient educated on increased risk of od due to medications in system. Patient denies SI/HI/AVH.Patient left unit ambulatory with staff. [facility] [id number] Nurse Note* Lauren Irby RN - 07/31/2023 11:04 AM EDT Patient up and visible on the unit. Patient independent with ALDS and ambulation. Patient appetite,hygiene, and sleep adequate. Patient denies SI/HI/AVH thus far. Patient being discharged later in the day. Patient attended meetings when offered. Encouraged to approach staff with any concerns or ramin nges. Will monitor for safety. Patient has been intrusive with other patients. He has been going to rooms and offering unsolicitedmedical advice and recommendations for take home prescriptions and MAT services. Patient has been redirected and asked to not speak about others aftercare numerous times this shift. 1550: Patient discharged home at this time. Patient personal belongings returned and paperwork signed. Patient educated on increased risk of od due to medications in system. Patient denies SI/HI/AVH.Patient left unit ambulatory with staff. * Kristina Hampton RN - 07/28/2023 9:00 PM EDT Pt alert and oriented, med compliant, pt denies SI/HI/AVH, NV&D. Pt withdrawn to room, pt has no complaints at this time, just states he wants to sleep. 2049- Trazodone given for sleep. 2149- Trazodone effective for sleep at this time, pt asleep in bed still maintaining Spo2 above 90%on room air. Pt encouraged to update staff with any change in condition. Will monitor pt for safety. * Lauren Irby RN - 07/28/2023 1:17 PM EDT Patient seclusive to room this shift. Pleasant [...] PRN Vistaril for anxiety. Will monitor effectiveness. * Kristina Hampton RN - 07/28/2023 1:29 AM EDT Continuous pulse ox initiated Dr. Daniel notified of pts spo2 dropping below 90% on room air and respirations of 28, supplemental oxygen nasal cannula initiated. * Kristina Hampton RN - 07/27/2023 11:23 PM EDT Pt arrived [facility] via cart with squad and security at this time. Pt was up and steady on feet. Pt oriented to room and unit, pt was just her this month towards the beginning ofthe month. Pt states he did have a [...] of cigarettes daily as well. Pts skin checkdone with 2 RN's upon arrival to unit [...] monitor pt for safety. documented in this [facility]05-01-2024 Hospital course Narrative* Tiki Ponce, JUAN - STOREROOM CLERK - 07/31/2023 9:06 AM EDT Addiction Medicine Detox Unit Discharge Summary Patient: [...] started on Phenobarbital. The dose was tapered accordingto his clinical signs and symptoms. Patient was [...] and regulations of the unit and was appropriatewith staff and peers until time of discharge. 12:26 pm received a call from nurse and MANAGER SITE, Patient began going in other patient's room [...] PRN medications: acetaminophen, albuterol, aluminum & magnesium hydroxide- simethicone, hydrOXYzine pamoate, ipratropium-albuterol, loperamide, magnesium hydroxide, nicotine [...] 358 ms QTC Interval 461 ms P [place] 66 degrees QRS [place] 68 degrees T Wave [place] 46 degrees RI Interval 156 ms Discharge Medication List Medication [...] given to pursue chemical dependency treatment at: [facility] The patient was also instructed to: 1. Attend AA/NA meetings or a similar 12-step program daily including day of discharge if possible. 2. Abstain from any mind or mood altering substances that are not prescribed. 3. Follow up with their primary care doctor and/or psychiatrist within 1-2 weeks. JUAN Rothman NP Addiction Medicine 07/31/2023 at 3:44 PM I spent a total time >40 minutes counseling and coordinating care regarding patient's chemical dependency status. Note: Narrative portions of note written using Scanadu dictation software. Efforts are made to dictate clearly and proofread but errors in dictation still may occur. Please reach out to author with any clarifying questions. Associated attestation - Jonatan Mckeon MD - 07/31/2023 4:30 PM EDT I have reviewed the documented history, ROS, physical exam, and decision making and agree. Jonatan Mckeon MD documented in this [facility]04-30-2024 Group counseling note* Group Note - Aurora Camarena - 07/30/2023 6:00 PM EDT Department: [facility] ACTIVITIES THERAP[facility] Group Topic: Other Group [...] sensations and feelings. Discussion focuses on the processof change and areas of their lives they want to address. Name: Maria De Jesus Hogan Date of : 1965 MR: [id number] Appearance: Good eye contact Affect: Appropriate Behavior: [...] make to support their wellness. Patient reports wantingto work on changing his environment as was [...] Conversion reaction BPH (benign prostatic hyperplasia) Tachycardia [facility] [id number] Note* Care Coordination - BENNIE Solis - 07/30/2023 9:33 AM EDT Patient approached MANAGER SITE asking for assistance with scheduling IOP. Patient reports interest IOP at [facility]. MANAGER SITE will assist with scheduling appointment. MANAGER SITE called and scheduled patient for intake assessment at [facility] 08/05/2023 at 1:00pm. All information included inpatient's discharge paperwork. Electronically signed by BENNIE Solis on07/30/2023 at 9:39 AM [facility] [id number] Note* Care Coordination - BENNIE Solis - 07/30/2023 9:33 AM EDT Patient approached MANAGER SITE asking for assistance with scheduling IOP. Patient reports interest IOP at [facility]. MANAGER SITE will assist with scheduling appointment. [facility]NAGER [facility]ITE called and scheduled patient for intake assessment at [facility] 08/05/2023 at 1:00pm. All information included inpatient's discharge paperwork. Electronically signed by BENNIE Solis on07/30/2023 at 9:39 AM [facility] [id number] Plan of care note* Care Plan - Tracy Davies RN - 07/29/2023 11:58 AM EDT Problem: Potential for Substance Withdrawal Goal: Verbalizes signs/symptoms of withdrawal Outcome: Progressing Goal: Reports signs/symptoms of withdrawal Outcome: Progressing Goal: Free of withdrawal symptoms Outcome: Progressing Problem: Drug Abuse/Detox Goal: Will have no detox symptoms and will verbalize plan for changing drug- related behavior Outcome: Progressing [facility] [id number] Hospital Discharge instructions* Discharge Instr - Other Orders* BENNIE Solis - 07/29/2023 8:08 AM EDT After detox you should abstain from any use of any mood altering chemical Appointment with your primary care physician should be scheduled It is highly recommended that you attend post hospital treatment Please read the information give to you - Intro to 12 step programs Call the National Suicide Prevention Hotline if needed at: 4-870-284-SVXB (0127) Please call the following number should you have questions regarding your discharge or aftercare appointments: [facility] documented in this [facility]04-29-2024 Note* Care Coordination - BENNIE Solis - 07/29/2023 8:04 AM EDT Behavioral Health Psycho-Social Assessment (Social Work) Date: 07/29/2023 Patient Name: Maria De Jesus Hogan : 1965 Identifying Information: Patient is a 57-year-old male admitted to for detox from alcohol. Patient is well-known to addiction medicine team as he was previously on the unit on 07/08/2023. Patient patient left the unit in 2023 with plans to engage at the [facility], patient reports however he did not [...] [facility] [place] [facility]. Patient has history of psychiatric admission. Reports admission was due to suicidal ideation while intoxicated Denies history of recent or past suicide attempts. Patient denies current SI/HI/AVH. Patient does have an extensive history of passive SI secondary to intoxication. Patient denies plan, intent, or method but reports more increased feelings of depression and sadness. Patient denies recentor past history of SIB. Substance Abuse/Use: Patient [...] Patient does have extensive history of falls whileintoxicated. Patient reports previous history of engagement with [...] poor nutrition and sleep secondary to his gomez bstance use. Legal/Trauma/ History: Patient denies any current legal issues. Patient reports past legal history of child support violations. Patient denies any history of childhood abuse. Patient does report however his father when he was 11 years old which was a traumatic incident to him. Patient denies any history of trauma abuse as an adult. Patient denies any history Orbisonia or status. Family Constellation/Childhood History: Patient reports that he is currently to his living in [facility]. Patient reports that he has 3 biological children and 4 stepchildren. Patient reports that his father in his 11 years old. Patient did not report his mother is stillalive currently. Patient was born and raised in [place], [place] by his mother and father. He reports that his father when he was 11 years old, and this was traumatic for him. Patient reports that he was raisedprimarily by his mother for the remainder of his childhood. He denies childhood abuse. Education/Work: Patient reports that he graduated high school. 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 Patient denies SSI/SSD. Cultural/Spirituality/Leisure: Patient denies any cultural needs or concerns at the current time. Patient denies identify any sikhism preference. It is unknown if patient is [...] (Patient has history of psychiatric admission. Reports admissionwas due to suicidal ideation while intoxicated. Denies [...] plan, intent, or method but reports more increasedfeelings of depression and sadness.) Activating Events (Recent): Current or pending isolation or feeling alone, Recent loss(es) or othersignificant negative event(s) (legal, financial, relationship, etc.) Describe:: [...] declined aftercare assistance while on the unit. [facility] will continue to work with patient to identify aftercare plans. Patient encouraged to engage in all activities thatare offered to them while they are on the unit. Patient report needing additional current time. Patient encouraged to seek out [facility] unit staff should they identify any additional [...] to contact the dictating provider for clarification. [facility] [id number] Note* Care Coordination - BENNIE Solis - 07/29/2023 8:04 AM EDT Behavioral Health Psycho-Social Assessment (Social Work) Date: 07/29/2023 Patient Name: Maria De Jesus Hogan : 1965 Identifying Information: Patient is a 57-year-old male admitted to for detox from alcohol. Patient is well-known to addiction medicine team as he was previously on the unit on 07/08/2023. Patient patient left the unit in 2023 with plans to engage at the [facility], patient reports however he did not [...] He has previous history of engagement with [facility] in [place] for outpatient mental health treatment. Patient has history of psychiatric admission. Reports admission was due to suicidal ideation while intoxicated Denies history of recent or past suicide attempts. Patient denies current SI/HI/AVH. Patient does have an extensive history of passive SI secondary to intoxication. Patient denies plan, intent, or method but reports more increased feelings of depression and sadness. Patient denies recentor past history of SIB. Substance Abuse/Use: Patient [...] Patient does have extensive history of falls whileintoxicated. Patient reports previous history of engagement with [...] poor nutrition and sleep secondary to his gomez bstance use. Legal/Trauma/ History: Patient denies any current legal issues. Patient reports past legal history of child support violations. Patient denies any history of childhood abuse. Patient does report however his father when he was 11 years old which was a traumatic incident to him. Patient denies any history of trauma abuse as an adult. Patient denies any history Orbisonia or status. Family Constellation/Childhood History: Patient reports that he is currently to his living in [facility]. Patient reports that he has 3 biological children and 4 stepchildren. Patient reports that his father in his 11 years old. Patient did not report his mother is stillalive currently. Patient was born and raised in [place], [place] by his mother and father. He reports that his father when he was 11 years old, and this was traumatic for him. Patient reports that he was raisedprimarily by his mother for the remainder of his childhood. He denies childhood abuse. Education/Work: Patient reports that he graduated high school. 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 Patient denies SSI/SSD. Cultural/Spirituality/Leisure: Patient denies any cultural needs or concerns at the current time. Patient denies identify any sikhism preference. It is unknown if patient is [...] (Patient has history of psychiatric admission. Reports admissionwas due to suicidal ideation while intoxicated. Denies [...] plan, intent, or method but reports more increasedfeelings of depression and sadness.) Activating Events (Recent): Current or pending isolation or feeling alone, Recent loss(es) or othersignificant negative event(s) (legal, financial, relationship, etc.) Describe:: [...] declined aftercare assistance while on the unit. [facility] will continue to work with patient to identify aftercare plans. Patient encouraged to engage in all activities thatare offered to them while they are on the unit. Patient report needing additional current time. Patient encouraged to seek out [facility] unit staff should they identify any additional [...] to contact the dictating provider for clarification. [facility] [id number] Nurse Note* Kristina Hampton RN - 07/28/2023 9:00 PM EDT Pt alert and oriented, med compliant, pt denies SI/HI/AVH, NV&D. Pt withdrawn to room, pt has no complaints at this time, just states he wants to sleep. 2049- Trazodone given for sleep. 2149- Trazodone effective for sleep at this time, pt asleep in bed still maintaining Spo2 above 90%on room air. Pt encouraged to update staff with any change in condition. Will monitor pt for safety. [id number] Nurse Note* Lauren Irby RN - 07/28/2023 1:17 PM EDT Patient seclusive to room this shift. Pleasant [...] PRN Vistaril for anxiety. Will monitor effectiveness. [facility] [id number] History and physical note* JUAN Hill NP - 07/28/2023 8:15 AM EDT Addiction Medicine Detox Unit H&P Patient: Maria [...] 07/11/2023 with plans of going to the [facility]. Patient reports that he never scheduled [...] a history of chemical dependency treatment at [facility]. Patient has a history of psychiatric admission [...] 0 min Stress: Stress Concern Present (07/28/2023) [employer] [place] [employer] - Occupational Stress Questionnaire Feeling of Stress : To some extent Social Connections: Moderately Isolated (07/28/2023) Social Connection and Isolation Panel [NHANES] Frequency of Communication with Friends and Family: Twice a week Frequency of Social Gatherings with Friends and Family: Once a week Attends Taoist Services: Never Active Member of Clubs or [...] CYST REMOVAL face EGD (HISTORICAL) 07/23/2022 Dr. Estrella-[facility] SMALL INTESTINE SURGERY UPPER GASTROINTESTINAL ENDOSCOPY 09/27/2021 normal WISDOM TOOTH EXTRACTION Family History Problem Relation Name Age of Onset Depression Sister Maria De Jesus Hogan Other ([id number]) Sister Maria De Jesus Hogan agoraphobia Arthritis Sister Maria De Jesus Hogan Cancer Mother Maria De Jesus Hogan colon rectal cancer; dx after age 50 Other ([id number]) Mother Maria De Jesus Hogan alcoholism Alcohol abuse Mother Maria De Jesus Hogan Stroke Mother Maria De Jesus Hogan Other ([id number]) Father Maria De Jesus Hogan h/o rheumatic [...] 358 ms QTC Interval 461 ms P [place] 66 degrees QRS [place] 68 degrees T Wave [place] 46 degrees RI Interval 156 ms CBC auto differential Collection [...] participate in all unit activities. Recovery plan: [facility] to assist with aftercare treatment options: Will explore treatment options JUAN Rothman NP Addiction Medicine 07/28/2023 at 11:11 AM Note: Narrative portions of note written using Scanadu dictation software. Efforts are made to dictate clearly and proofread but errors in dictation still may occur. Please reach out to author with any clarifying questions. [facility] [id number] History and physical note* JUAN Hill NP - 07/28/2023 8:15 AM EDT Addiction Medicine Detox Unit H&P Patient: Maria [...] 07/11/2023 with plans of going to the [facility]. Patient reports that he never scheduled [...] a history of chemical dependency treatment at [facility]. Patient has a history of psychiatric admission [...] 0 min Stress: Stress Concern Present (07/28/2023) [employer] [place] [employer] - Occupational Stress Questionnaire Feeling of Stress : To some extent Social Connections: Moderately Isolated (07/28/2023) Social Connection and Isolation Panel [NHANES] Frequency of Communication with Friends and Family: Twice a week Frequency of Social Gatherings with Friends and Family: Once a week Attends Taoist Services: Never Active Member of Clubs or [...] CYST REMOVAL face EGD (HISTORICAL) 07/23/2022 Dr. Estrella-[facility] SMALL INTESTINE SURGERY UPPER GASTROINTESTINAL ENDOSCOPY 09/27/2021 normal WISDOM TOOTH EXTRACTION Family History Problem Relation Name Age of Onset Depression Sister Maria De Jesus Hogan Other ([id number]) Sister Maria De Jesus Hogan agoraphobia Arthritis Sister Maria De Jesus Hogan Cancer Mother Maria De Jesus Hogan colon rectal cancer; dx after age 50 Other ([id number]) Mother Maria De Jesus Hogan alcoholism Alcohol abuse Mother Maria De Jesus Hogan Stroke Mother Maria De Jesus Hogan Other ([id number]) Father Maria De Jesus Hogan h/o rheumatic [...] 358 ms QTC Interval 461 ms P [place] 66 degrees QRS [place] 68 degrees T Wave [place] 46 degrees RI Interval 156 ms CBC auto differential Collection [...] participate in all unit activities. Recovery plan: [facility]GER [facility]ITE to assist with aftercare treatment options: Will explore treatment options Tiki Ponce APRN - [facility] Addiction Medicine 07/28/2023 at 11:11 AM Note: Narrative portions of note written using Scanadu dictation software. Efforts are made to dictate clearly and proofread but errors in dictation still may occur. Please reach out to author with any clarifying questions. documented in this [facility]04-28-2024 Nurse Note* Kristina Hampton RN - 07/28/2023 1:29 AM EDT Continuous pulse ox initiated Dr. Daniel notified of pts spo2 dropping below 90% on room air and respirations of 28, supplemental oxygen nasal cannula initiated. [facility] [id number] Nurse Note* Kristina Hampton RN - 07/27/2023 11:23 PM EDT Pt arrived [facility] via cart with squad and security at this time. Pt was up and steady on feet. Pt oriented to room and unit, pt was just her this month towards the beginning ofthe month. Pt states he did have a [...] of cigarettes daily as well. Pts skin checkdone with 2 RN's upon arrival to unit and pt given a meal. Pts heart rate in the 130's over the past hour per report from squad, pt medicated with vistaril of anxiety, tylenol [...] in condition. Will monitor pt for safety. [id number] Emergency department Note* Alpa Middleton RN - 07/27/2023 10:37 PM EDT [facility] with patient at this time. Alpa Middleton RN 07/27/232236 [address]Jcusqn16-23-2036 Emergency department Note* Alpa Middleton RN - 07/27/2023 10:37 PM EDT Report given to 4E RN at this time Alpa Middleton RN 07/27/232236 [id number] Emergency department Note* Alpa Middleton RN - 07/27/2023 10:37 PM EDT [facility] en route with patient at this time. Alpa Middleton RN 07/27/232236 * Alpa Middleton RN - 07/27/2023 10:37 PM EDT Report given to 4E RN at this time Alpa Middleton RN 07/27/232236 * Triston Abraham MD - 07/27/2023 6:41 PM EDT This will serve as my Supervisory note and shared attestation. I personally saw the patient and made/approved the management plan and take responsibility for the patient management. I did perform a substantive portion of the visit including all aspects of the Medical Decision Making. All diagnostic, treatment, and disposition decisions were made by myself in conjunction with theresident. For all further details of the patient's emergency department visit, please see their documentation. [facility] ED EMERGENCY DEPARTMENT ENCOUNTER Pt Name: Maria [...] CYST REMOVAL face EGD (HISTORICAL) 07/23/2022 Dr. Estrella[facility] SMALL INTESTINE SURGERY UPPER GASTROINTESTINAL ENDOSCOPY 09/27/2021 [...] Depression Sister Maria De Jesus Hogan Other ([id number]) Sister Maria De Jesus Hogan agoraphobia Arthritis Sister Maria De Jesus Hogan Cancer Mother Maria De Jesus Hogan colon rectal cancer; dx after age 50 Other ([id number]) Mother Maria De Jesus Hogan alcoholism Alcohol abuse Mother Maria De Jesus Hogan Stroke Mother Maria De Jesus Hogan Other ([id number]) Father Maria De Jesus Hogan h/o rheumatic [...] 0 min Stress: Stress Concern Present (07/09/2023) [employer] [place] [employer] - Occupational Stress Questionnaire Feeling of Stress : Very much Social Connections: Moderately Isolated (07/09/2023) Social Connection and Isolation Panel [NHANES] Frequency of Communication with Friends and Family: More than three times a week Frequency of Social Gatherings with Friends and Family: More than three times a week Attends Taoist Services: Never Active Member of Clubs or [...] substantive portion of the visit including all aspectsof the medical decision making. Patient appears nontoxic. [...] discharge summary. Addiction medicine consult note from Diagnostics interpreted by me: As above Discussions with other clinicians: As above Chronic conditions impacting care: Alcohol use disorder ED Medications managed: Medications PHENobarbital (Luminal) tablet 97.2 mg (has no administration in time range) sodium chloride 0.9 % bolus 1,000 mL (has no administration in time range) CRITICAL CARE TIME I personally saw the patient and independently provided 0 minutes of non- concurrent critical care out of the total shared [...] but occasionally words and phrases are mis-transcribed.) MD ROXANA LyonsA Emergency Medicine Physician [facility] Triston Abraham MD 07/27/232225 * Rosalina Burgos DO - 07/27/2023 6:41 PM EDT EMERGENCY DEPARTMENT ENCOUNTER Pt Name: Maria De [...] are shutting down. Does have some generalized abdominalbloating/pain as well as nausea. Says he drinks [...] CYST REMOVAL face EGD (HISTORICAL) 07/23/2022 Dr. Estrella-[facility] SMALL INTESTINE SURGERY UPPER GASTROINTESTINAL ENDOSCOPY 09/27/2021 [...] Depression Sister Maria De Jesus Hogan Other ([id number]) Sister Maria De Jesus Hogan agoraphobia Arthritis Sister Maria De Jesus Hogan Cancer Mother Maria De Jesus Hogan colon rectal cancer; dx after age 50 Other ([id number]) Mother Maria De Jesus Hogan alcoholism Alcohol abuse Mother Maria De Jesus Hogan Stroke Mother Maria De Jesus Hogan Other ([id number]) Father Maria De Jesus Hogan h/o rheumatic [...] 0 min Stress: Stress Concern Present (07/09/2023) [employer] [place] [employer] - Occupational Stress Questionnaire Feeling of Stress : Very much Social Connections: Moderately Isolated (07/09/2023) Social Connection and Isolation Panel [NHANES] Frequency of Communication with Friends and Family: More than three times a week Frequency of Social Gatherings with Friends and Family: More than three times a week Attends Taoist Services: Never Active Member of Clubs or [...] for medical treatment only. Analysis performed using non- forensic procedures. BASIC METABOLIC PANEL - Abnormal SODIUM [...] If confirmation is needed, request confirmation under separateorder. All other labs were within normal range [...] with other clinicians: Admitting team Dr. Mainor Danile, detox admitting physician Chronic conditions impacting care: [...] are any questions or concerns please feel freeto contact the dictating provider for clarification.) Rosalina Burgos DO (electronically signed) Emergency Medicine Provider Rosalina Burgos DO Resident 07/27/232124 * Lupe Piper RN - 07/27/2023 6:41 PM EDT Pt states he was recently at detox for ETOH. States he is sleeping a lot having abdominal pain and nausea and just wants to feel better last drink was this evening documented in this [facility]04-27-2024 NoteNOTE: This result is for medical treatment only. Analysis performed using non-forensic procedures. [facility] [id number] Emergency department Triage note* Lupe Piper RN - 07/27/2023 6:41 PM EDT Pt states he was recently at detox for ETOH. States he is sleeping a lot having abdominal pain and nausea and just wants to feel better last drink was this evening [facility] [id number] Physician Emergency department Note* Triston Abraham MD - 07/27/2023 6:41 PM EDT This will serve as my Supervisory note and shared attestation. I personally saw the patient and made/approved the management plan and take responsibility for the patient management. I did perform a substantive portion of the visit including all aspects of the Medical Decision Making. All diagnostic, treatment, and disposition decisions were made by myself in conjunction with theresident. For all further details of the patient's emergency department visit, please see their documentation. [facility] ED EMERGENCY DEPARTMENT ENCOUNTER Pt Name: Maria [...] CYST REMOVAL face EGD (HISTORICAL) 07/23/2022 Dr. Estrella-[facility] SMALL INTESTINE SURGERY UPPER GASTROINTESTINAL ENDOSCOPY 09/27/2021 [...] Depression Sister Maria De Jesus Hogan Other ([id number]) Sister Maria De Jesus Hogan agoraphobia Arthritis Sister Maria De Jesus Hogan Cancer Mother Maria De Jesus Hogan colon rectal cancer; dx after age 50 Other ([id number]) Mother Maria De Jesus Hogan alcoholism Alcohol abuse Mother Maria De Jesus Hogan Stroke Mother Maria De Jesus Hogan Other ([id number]) Father Maria De Jesus Hogan h/o rheumatic [...] 0 min Stress: Stress Concern Present (07/09/2023) [employer] [place] [employer] - Occupational Stress Questionnaire Feeling of Stress : Very much Social Connections: Moderately Isolated (07/09/2023) Social Connection and Isolation Panel [NHANES] Frequency of Communication with Friends and Family: More than three times a week Frequency of Social Gatherings with Friends and Family: More than three times a week Attends Taoist Services: Never Active Member of Clubs or [...] substantive portion of the visit including all aspectsof the medical decision making. Patient appears nontoxic. [...] discharge summary. Addiction medicine consult note from Diagnostics interpreted by me: As above Discussions with other clinicians: As above Chronic conditions impacting care: Alcohol use disorder ED Medications managed: Medications PHENobarbital (Luminal) tablet 97.2 mg (has no administration in time range) sodium chloride 0.9 % bolus 1,000 mL (has no administration in time range) CRITICAL CARE TIME I personally saw the patient and independently provided 0 minutes of non- concurrent critical care out of the total shared [...] Triston Abraham MD PATRICIA Emergency Medicine Physician [facility] Triston Abraham MD 07/27/232225 [facility] [place] [facility] [employer] Phone: [phone]) 473-324204-27-2024 Physician Emergency department Note* Rosalina Burgos DO - 07/27/2023 6:41 PM EDT EMERGENCY DEPARTMENT ENCOUNTER Pt Name: Maria De [...] are shutting down. Does have some generalized abdominalbloating/pain as well as nausea. Says he drinks [...] CYST REMOVAL face EGD (HISTORICAL) 07/23/2022 Dr. Estrella-[facility] SMALL INTESTINE SURGERY UPPER GASTROINTESTINAL ENDOSCOPY 09/27/2021 [...] Depression Sister Maria De Jesus Hogan Other ([phone]) Sister Maria De Jesus Hogan agoraphobia Arthritis Sister Maria De Jesus Hogan Cancer Mother Maria De Jesus Hogan colon rectal cancer; dx after age 50 Other ([id number]) Mother Maria De Jesus Hogan alcoholism Alcohol abuse Mother Maria De Jesus Hogan Stroke Mother Maria De Jesus Hogan Other ([phone]) Father Maria De Jesus Hogan h/o rheumatic [...] 0 min Stress: Stress Concern Present (07/09/2023) [employer] [place] [employer] - Occupational Stress Questionnaire Feeling of Stress : Very much Social Connections: Moderately Isolated (07/09/2023) Social Connection and Isolation Panel [NHANES] Frequency of Communication with Friends and Family: More than three times a week Frequency of Social Gatherings with Friends and Family: More than three times a week Attends Taoist Services: Never Active Member of Clubs or [...] for medical treatment only. Analysis performed using non- forensic procedures. BASIC METABOLIC PANEL - Abnormal SODIUM [...] If confirmation is needed, request confirmation under separateorder. All other labs were within normal range or not returned as of this dictation. EMERGENCY DEPARTMENT COURSE and DIFFERENTIAL DIAGNOSIS/MDM: Vitals: Vitals: 07/27/23 1844 07/27/23 2040 07/27/232041 BP: (!) 143/101 127/81 127/81 BP Location: [...] are any questions or concerns please feel freeto contact the dictating provider for clarification.) Rosalina Burgos DO (electronically signed) Emergency Medicine Provider Rosalina Burgos DO Resident 07/27/232124 [id number] Telephone encounter Note* Telephone Encounter - Lakia Damon MA - 07/19/2023 10:46 AM EDT Recent Visits Date Type Provider Dept 12/26/22 Office Visit Lynda Rasheed MD [facility] 09/25/22 Office Visit Lynda Rasheed MD [facility] 08/01/22 Office Visit Lynda Rasheed MD [facility] Showing recent visits within past 365 [...] Most recent labs completed in chart? N/A [place] [id number] Miscellaneous Notes* Telephone Encounter - Lakia Damon MA - 07/19/2023 10:46 AM EDT Recent Visits Date Type Provider Dept 12/26/22 Office Visit Lynda Rasheed MD [facility] 09/25/22 Office Visit Lynda Rasheed MD [facility] 08/01/22 Office Visit Lynda Rasheed MD [facility] Showing recent visits within past 365 [...] completed in chart? 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 410 pm * Stephanie Schmitt RN - 07/11/2023 12:15 PM EDT Reviewed discharge. Signed. Discussed AA with patient. States he most likely will not go. States is planing on going to an IOP.Discussed risk of using any etoh, street drugs, meds not prescribed or as. Discussed increased riskof od or if uses soon after discharge, stated understood. Discussed how etoh shortens life and decreases quality of life. Denies si/hi. * Carito Hurtado Yelenajulianne, DO - 07/10/2023 1:40 PM EDT Images from the original note were not included. ADDICTION MEDICINE PROGRESS NOTE Patient: Maria De Jesus Hogan __ Problem List: Principal Problem: Alcohol withdrawal syndrome without complication (HCC) Active Problems: Cigarette smoker Severe alcohol use disorder (HCC) SUBJECTIVE Chief Complaint Patient presents with Detox Pt. States he would like to come in for inpatient detox. States he has been drinking 8-9 tallboysper day since he was a teen. Pt. [...] room, in no apparent acute distress. Patient arouseseasily to verbal stimuli. Patient mood is better [...] slight autonomic instability, heart rate and blood pressureelevated last night and this morning. Patient asks about discharge, states is going out of town and wants to be home to see her prior to leaving. Discussed treatment course and timeline with patient, patient amenable to staying tillFriday. Patient continues to endorse interest in IOP [...] time does not have healthcare power of wall taper, living will, or documentation expressing his end-of-life wishes. Reviewed importance of this with patient and discussed o ptions for following up once discharged to get [...] own after discharge. Will include information for [facility] and avenues. Patient states willing to [...] with the resident s findings and plan. * Jazlyn Huggins - 07/10/2023 7:11 AM EDT Nutrition rescreen completed. Patient assigned a level 1. * Stephanie Schmitt RN - 07/09/2023 4:53 PM EDT Mostly withdrawn and sleeping in room. Up on unit some this afternoon. Gait is steady. Cooperative with staff and medication pass. Appetite good. States feeling better at this time. * Roger Mullins RN - 07/09/2023 1:49 AM EDT Pt arrived on unit at 0120 HRS via ED , accompanied by Protective Services and Ambulance staff. Safety Checks initiated every 60 mins. Vital signs obtained. Pt oriented to room and unit and given info folder. Pt signed in including LAQUITA for the . A 4 eye skin check completed and there were nowounds present. Presentation: Pt pleasant while interacting with [...] history of harm to others , Lack ofknown history of violent ideation , Sense of optimism, hope , Interpersonal competence , Affect regu lation , Sense of self-efficacy, internal locus of control , and Positive, pro- social family/peer network Hallucinations: no; Delusions: None Vitals Vitals Value Taken Time BP 131/78 07/09/23129 Temp 36.6 C (97.8 F) 07/09/23129 Pulse 137 07/09/23129 Resp 16 07/09/23129 SpO2 91 % 07/09/23129 Pt offered meals as requested. Physician contacted for orders. Pt encouraged to seek out staff with questions or concerns. documented in this [facility]04-11-2024 Group counseling note* Group Note - Soco Edmonds - 07/11/2023 3:55 PM EDT Department: [facility] ACTIVITIES THERAPY Group Topic: Music Therapy [...] Jesus Hogan Date of : 1965 MR: [id number] Mental Status Exam: Appearance: Appropriately dressed and [...] Conversion reaction BPH (benign prostatic hyperplasia) Tachycardia [facility] [id number] Miscellaneous Notes* Group Note - Soco Edmonds - 07/11/2023 3:55 PM EDT Department: [facility] THERAPY Group Topic: Music Therapy Group Date: 07/11/2023 Start Time: 1500 End Time: 1530 Facilitators: Soco Edmonds Number of Participants: 6 Group Name: Music Aggregate Knowledgea Treatment Modality: Music Therapy Purpose: relapse prevention [...] Jesus Hogan Date of : 1965 MR: [id number] Mental Status Exam: Appearance: Appropriately dressed and [...] Conversion reaction BPH (benign prostatic hyperplasia) Tachycardia * Care Coordination - BENNIE Solis - 07/11/2023 10:24 AM EDT MANAGER SITE saw patient to discuss aftercare plans and treatment post discharge. Patient declined to allow MANAGER SITE to assist with scheduling aftercare appointments. MANAGER SITE included information for agencies in patient's local community for him to call and schedule engagement with. Patient denied current SI/HI/AVH.Patient reported that their would be picking them up from the hospital and taking them back home. Patient denied needing anything further from MANAGER SITE at the time. MANAGER SITE informed patient's nurse aboutconversation. * Care Coordination - BENNIE Solis - 07/09/2023 10:13 AM EDT RENTAL CLERK met with patient again to inquire about aftercare plans. Patient reports that he is interested in reengaging with an agency for [facility] in the [facility]. MANAGER SITE offered to identify aftercare agencies for patient and schedule intake appointment however patient is declining reporting that he would like to schedule his own aftercare appointments. MANAGER SITE included information for [facility] and avenues. MANAGER SITE will continue to follow-up as necessary. Patient encouraged to seek out MANAGER SITE should he identify any additional care plans. * Care Coordination - BENNIE Solis - 07/09/2023 8:29 AM EDT Behavioral Health Psycho-Social Assessment (Social Work) Date: [...] been drinking heavily since he was a teenager.States that he several admissions for detox not [...] He has previous history of engagement with [facility] for outpatient mental health treatment. Patient has history of psychiatric admission. Reports admission was due to suicidal ideation while intoxicated Denies history of recent or past suicide attempts. Patient denies current SI/HI/AVH. Patient does have an extensive history of passive SI secondary to intoxication. Patient denies plan, intent, or method but reports more increased feelings of depression and sadness. Patient denies recentor past history of SIB. Substance Abuse/Use: Patient reports that he is currently drinking upwards of 9, 24 ounce Natty Daddy beers daily. Patient reports his last drink was 07/08/2023. Patient labs are positive for alcohol(0.358). Patient first drank alcohol when he was [...] Patient does have extensive history of falls whileintoxicated. Patient reports previous history of engagement with [...] as an adult. Patient denies any history Orbisonia or status. Family Constellation/Childhood History: Patient reports that he is currently to his living in [facility]. Patient reports that he has 3 biological children and 4 stepchildren. Patient reports that his father in his 11 years old. Patient did not report his mother is stillalive currently. Patient was born and raised in [place], [place] by his mother and father. He reports that his father when he was 11 years old, and this was traumatic for him. Patient reports that he was raisedprimarily by his mother for the remainder of his childhood. He denies childhood abuse. Education/Work: Patient reports that he graduated high school. 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 Patient denies SSI/SSD. Cultural/Spirituality/Leisure: Patient denies any cultural needs or concerns at the current time. Patient denies identify any sikhism preference. It is unknown if patient is [...] (Patient has history of psychiatric admission. Reports admissionwas due to suicidal ideation while intoxicated. Patient [...] plan, intent, or method but reports more increasedfeelings of depression and sadness) Activating Events (Recent): Recent loss(es) or other significant negative event(s) (legal, financial, relationship, etc.) Describe:: Ongoing struggles with substance use disorder Treatment History: Previous psychiatric diagnoses and treatments, Non-compliant with treatment, [facility] (Patient has mental health diagnosis depression [...] declined aftercare assistance while on the unit. MANAGER SITE will continue to work with patient to identify aftercare plans. Patient encouraged to engage in all activities thatare offered to them while they are on the unit. Patient report needing additional current time. Patient encouraged to seek out MANAGER SITE unit staff should they identify any additional [...] to contact the dictating provider for clarification. * Care Plan - Roger Mullins RN - 07/09/2023 5:00 AM EDT Problem: Ineffective Coping Goal: Identifies ineffective coping skills Outcome: Progressing Goal: Identifies healthy coping skills Outcome: Progressing Goal: Demonstrates healthy coping skills Outcome: Progressing Problem: Anxiety Goal: Attempts to manage anxiety with help Outcome: Progressing Goal: Verbalizes ways to manage anxiety Outcome: Progressing Goal: Implements measures to reduce anxiety Outcome: Progressing documented in this [facility]04-11-2024 Note* Care Coordination - BENNIE Solis - 07/11/2023 10:24 AM EDT MANAGER SITE saw patient to discuss aftercare plans and treatment post discharge. Patient declined to allow MANAGER SITE to assist with scheduling aftercare appointments. MANAGER SITE included information for agencies in patient's local community for him to call and schedule engagement with. Patient denied current SI/HI/AVH.Patient reported that their would be picking them up from the hospital and taking them back home. Patient denied needing anything further from MANAGER SITE at the time. MANAGER SITE informed patient's nurse aboutconversation. [id number] Note* Care Coordination - BENNIE Solis - 07/11/2023 10:24 AM EDT MANAGER SITE saw patient to discuss aftercare plans and treatment post discharge. Patient declined to allow MANAGER SITE to assist with scheduling aftercare appointments. MANAGER SITE included information for agencies in patient's local community for him to call and schedule engagement with. Patient denied current SI/HI/AVH.Patient reported that their would be picking them up from the hospital and taking them back home. Patient denied needing anything further from MANAGER SITE at the time. MANAGER SITE informed patient's nurse aboutconversation. [id number] Hospital course Narrative* Carito Fernandez DO - 07/11/2023 10:01 AM EDT Images from the original note were not included. ADDICTION MEDICINE 4E DETOX UNIT DISCHARGE SUMMARY __ Patient MRN Maria De Jesus Hogan [id number] 1965 Admit Date Discharge Date 07/08/2023 07/11/2023 Primary Care Physician Lynda Rasheed MD Admitting Physician Jonatan Mckeon MD Consultants SW. Reason for Admission Alcohol Withdrawal Maria De Jesus Hogan is a 57 y.o. year old male with SigPMHx of alcohol use disorder, severe, depression, anxiety, HTN, CAD, stroke/TIA, GERD, Lombardo's esophagus, GI bleed, pneumatosis, COPD, patient well-known to addiction medicine, that presented to [facility] ED on 07/08 for detox. While [...] boys but has recently cut back), last drinkwas just prior to presenting to ED. On [...] plans on discharge to follow up with [facility] at [facility] on own, care team offered to schedule intake appointment for patient, however pt declined. Vitals height is 1.803 m (5' 11) and weight is 99.8 kg (220 lb). His temporal temperature is 36.6 C (97.8F). His blood pressure is 137/77 and his [...] 360 ms QTC Interval 474 ms P [place] 58 degrees QRS [place] 81 degrees T Wave [place] 39 degrees RI Interval 149 ms Imaging ECG 12 lead [...] (100 mg) by mouth daily. Follow Up [facility] and [place] [address], [address] [place] [address] Schedule an appointment as soon as possible for a visit to engage in IOP/Counseling needs for addiction medicine follow up. [facility], [address], [address] [phone] Schedule an appointment as soon as possible [...] process. Jonatan Mckeon MD documented in this [facility]04-10-2024 Nurse Note* Evelyn Abad RN - 07/10/2023 8:46 PM EDT Patient assessed in group room. Pt is up and steady, seen socializing with other patients. Pt is cooperative and med compliant. Pt denies SI/HI/AVH. Pt encouraged to notify staff for any questions and concerns. [facility] [id number] Nurse Note* Evelyn Abad RN - 07/10/2023 8:46 PM EDT Patient assessed in group room. Pt is up and steady, seen socializing with other patients. Pt is cooperative and med compliant. Pt denies SI/HI/AVH. Pt encouraged to notify staff for any questions and concerns. * Nicole Albrecht RN - 07/10/2023 9:30 AM EDT Mr. Hogan is sitting up in his room. He reports eating early this morning. He was encouraged to attend meetings offered. * Evelyn Abad RN - 07/09/2023 9:28 PM EDT Patient assessed in patient's room. Pt is up and steady, withdrawn to room. Pt is cooperative and med compliant. Pt denies SI/HI/AVH. Pt encouraged to notify staff for any questions and concerns. documented in this [facility]04-10-2024 Nurse Note* Nicole Albrecht RN - 07/10/2023 9:30 AM EDT Mr. Hogan is sitting up in his room. He reports eating early this morning. He was encouraged to attend meetings offered. [facility] [id number] Nurse Note* Evelyn Abad RN - 07/09/2023 9:28 PM EDT Patient assessed in patient's room. Pt is up and steady, withdrawn to room. Pt is cooperative and med compliant. Pt denies SI/HI/AVH. Pt encouraged to notify staff for any questions and concerns. [facility] [id number] History and physical note* Carito Fernandez, - 07/09/2023 11:15 AM EDT Images from the original note were not included. ADDICTION MEDICINE 4E DETOX UNIT H&P Patient: Maria De Jesus Hogan Admit Date: 07/08/2023 Primary Care Physician: Lynda Rasheed MD __ HISTORY OF PRESENT ILLNESS Chief Complaint Patient presents with Detox Pt. States he would like to come in for inpatient detox. States he has been drinking 8-9 tallboysper day since he was a teen. Pt. States he has never attempted to detox before. States last drink was less that 30mins ago. Maria De Jesus Hogan is a 57 y.o. year old male with SigPMHx of alcohol use disorder, severe, depression, anxiety, HTN, CAD, stroke/TIA, GERD, Lombardo's esophagus, GI bleed, pneumatosis, COPD, patient well-known to addiction medicine, that presented to [facility] ED on 07/08 for detox. While [...] boys but has recently cut back), last drinkwas just prior to presenting to ED. On [...] mid teens. States drinking became regular and 20s,problematic in late 30s to 40s. Endorses longest [...] consult. Patient has history of hospitalization at [place] for mood disorders. Current Substance Use Alcohol: [...] 08/31/2019 Alcohol intoxication without use disorder, uncomplicated ([facility]) 10/01/2019 Alcohol use disorder 09/10/2022 Alcohol withdrawal syndrome with complication (HCC) 09/27/2021 Alcohol withdrawal, uncomplicated (HCC) 08/31/2019 Alcohol withdrawal, with unspecified complication (HCC) 10/02/2019 Alcohol withdrawal, with unspecified complication (HCC) 10/02/2019 Alcoholism ([facility]/HCC) (HCC) Anxiety Arthritis Maria De Jesus Cerebral artery occlusion with cerebral infarction (HCC) Cerebrovascular disease Depression GERD (gastroesophageal reflux disease) Maria De Jesus Hypertension Insomnia Past Surgical History Past Surgical History: Procedure Laterality Date COLONOSCOPY 06/10/2020 EGD/Dr Madison/AMANDA CYST REMOVAL face EGD (HISTORICAL) 07/23/2022 Dr. Estrella-[facility] SMALL INTESTINE SURGERY UPPER GASTROINTESTINAL ENDOSCOPY 09/27/2021 normal WISDOM TOOTH EXTRACTION Family History Family History Problem Relation Name Age of Onset Depression Sister Maria De Jesus Hogan Other ([id number]) Sister Maria De Jesus Hogan agoraphobia Arthritis Sister Maria De Jesus Hogan Cancer Mother Maria De Jesus Hogan colon rectal cancer; dx after age 50 Other ([id number]) Mother Maria De Jesus Hogan alcoholism Alcohol abuse Mother Maria De Jesus Hogan Stroke Mother Maria De Jesus Hogan Other ([id number]) Father Maria De Jesus Hogan h/o rheumatic [...] 0 min Stress: Stress Concern Present (07/09/2023) [employer] [place] [facility] [employer] [facility] - Occupational Stress Questionnaire Feeling of Stress : Very much Social Connections: Moderately Isolated (07/09/2023) Social Connection and Isolation Panel [NHANES] Frequency of Communication with Friends and Family: More than three times a week Frequency of Social Gatherings with Friends and Family: More than three times a week Attends Taoist Services: Never Active Member of Clubs or [...] Year: No Utilities: Not At Risk (07/09/2023) [facility] Utilities Threatened with loss of utilities: No REVIEW OF SYSTEMS Review of Systems Constitutional: Positive for appetite change, diaphoresis and fatigue. Eyes: Negative for visual disturbance. Respiratory: Positive for wheezing. Negative for cough, chest tightness and shortness of breath. Cardiovascular: Negative for chest pain. Gastrointestinal: Positive for abdominal pain and nausea. Negative for blood in stool, diarrhea andvomiting. Musculoskeletal: Positive for myalgias. Neurological: Positive for [...] On 07-08-2023 18:36:57 EDT by Catalino Mujica [employer] Recent Results (from the past 48 hour(s)) ECG 12 lead Collection Time: 07/08/23 6:07 PM Result Value Ref Range Heart Rate 104 bpm QRSD Interval 105 ms QT Interval 360 ms QTC Interval 474 ms P [place] 58 degrees QRS [place] 81 degrees T Wave [place] 39 degrees RI Interval 149 ms CBC auto differential Collection [...] own after discharge. Will include information for [facility] and avenues. Alcohol withdrawal Last use [...] with the resident s findings and plan. [facility] [id number] History and physical note* Carito Fernandez, - 07/09/2023 11:15 AM EDT Images from the original note were not included. ADDICTION MEDICINE 4E DETOX UNIT H&P Patient: Maria De Jesus Hogan Admit Date: 07/08/2023 Primary Care Physician: Lynda Rasheed MD __ HISTORY OF PRESENT ILLNESS Chief Complaint Patient presents with Detox Pt. States he would like to come in for inpatient detox. States he has been drinking 8-9 tallboysper day since he was a teen. Pt. States he has never attempted to detox before. States last drink was less that 30mins ago. Maria De Jesus Hogan is a 57 y.o. year old male with SigPMHx of alcohol use disorder, severe, depression, anxiety, HTN, CAD, stroke/TIA, GERD, Lombardo's esophagus, GI bleed, pneumatosis, COPD, patient well-known to addiction medicine, that presented to [facility] ED on 07/08 for detox. While [...] boys but has recently cut back), last drinkwas just prior to presenting to ED. On [...] mid teens. States drinking became regular and 20s,problematic in late 30s to 40s. Endorses longest [...] consult. Patient has history of hospitalization at [place] for mood disorders. Current Substance Use Alcohol: [...] CYST REMOVAL face EGD (HISTORICAL) 07/23/2022 Dr. Estrella[facility] SMALL INTESTINE SURGERY UPPER GASTROINTESTINAL ENDOSCOPY 09/27/2021 normal WISDOM TOOTH EXTRACTION Family History Family History Problem Relation Name Age of Onset Depression Sister Maria De Jesus Hogan Other ([id number]) Sister Maria De Jesus Hogan agoraphobia Arthritis Sister Maria De Jesus Hogan Cancer Mother Maria De Jesus Hogan colon rectal cancer; dx after age 50 Other ([id number]) Mother Maria De Jesus Hogan alcoholism Alcohol abuse Mother Maria De Jesus Hogan Stroke Mother Maria De Jesus Hogan Other ([id number]) Father Maria De Jesus Hogan h/o rheumatic [...] 0 min Stress: Stress Concern Present (07/09/2023) [employer] [place] [employer] - Occupational Stress Questionnaire Feeling of Stress : Very much Social Connections: Moderately Isolated (07/09/2023) Social Connection and Isolation Panel [NHANES] Frequency of Communication with Friends and Family: More than three times a week Frequency of Social Gatherings with Friends and Family: More than three times a week Attends Taoist Services: Never Active Member of Clubs or [...] Year: No Utilities: Not At Risk (07/09/2023) [facility] Utilities Threatened with loss of utilities: No REVIEW OF SYSTEMS Review of Systems Constitutional: Positive for appetite change, diaphoresis and fatigue. Eyes: Negative for visual disturbance. Respiratory: Positive for wheezing. Negative for cough, chest tightness and shortness of breath. Cardiovascular: Negative for chest pain. Gastrointestinal: Positive for abdominal pain and nausea. Negative for blood in stool, diarrhea andvomiting. Musculoskeletal: Positive for myalgias. Neurological: Positive for [...] 360 ms QTC Interval 474 ms P [place] 58 degrees QRS [place] 81 degrees T Wave [place] 39 degrees RI Interval 149 ms CBC auto differential Collection [...] own after discharge. Will include information for [facility] and avenues. Alcohol withdrawal Last use [...] S/s withdraw Consultants to coordinate care with: NELSY. Associated attestation - Jonatan Mckeon MD - [...] s findings and plan. documented in this [facility]04-09-2024 Note* Care Coordination - BENNIE Solis - 07/09/2023 10:13 AM EDT RENTAL CLERK met with patient again to inquire about aftercare plans. Patient reports that he is interested in reengaging with an agency for IOP in the [facility]. MANAGER SITE offered to identify aftercare agencies for patient and schedule intake appointment however patient is declining reporting that he would like to schedule his own aftercare appointments. MANAGER SITE included information for [facility] and [facility]. MANAGER SITE will continue to follow-up as necessary. Patient encouraged to seek out MANAGER SITE should he identify any additional care plans. [facility]04-09-2024 Note* Care Coordination - BENNIE Solis - 07/09/2023 10:13 AM EDT RENTAL CLERK met with patient again to inquire about aftercare plans. Patient reports that he is interested in reengaging with an agency for IOP in the [facility]. MANAGER SITE offered to identify aftercare agencies for patient and schedule intake appointment however patient is declining reporting that he would like to schedule his own aftercare appointments. MANAGER SITE included information for [facility] and [facility]. MANAGER SITE will continue to follow-up as necessary. Patient encouraged to seek out MANAGER SITE should he identify any additional care plans. [facility] [id number] Note* Care Coordination - Amina MariluzBENNIE - 07/09/2023 8:29 AM EDT Behavioral Health Psycho-Social Assessment (Social Work) Date: [...] been drinking heavily since he was a teenager.States that he several admissions for detox not [...] He has previous history of engagement with [facility] for outpatient mental health treatment. Patient has history of psychiatric admission. Reports admission was due to suicidal ideation while intoxicated Denies history of recent or past suicide attempts. Patient denies current SI/HI/AVH. Patient does have an extensive history of passive SI secondary to intoxication. Patient denies plan, intent, or method but reports more increased feelings of depression and sadness. Patient denies recentor past history of SIB. Substance Abuse/Use: Patient reports that he is currently drinking upwards of 9, 24 ounce Natty Daddy beers daily. Patient reports his last drink was 07/08/2023. Patient labs are positive for alcohol(0.358). Patient first drank alcohol when he was [...] Patient does have extensive history of falls whileintoxicated. Patient reports previous history of engagement with [...] poor nutrition and sleep secondary to his gomez bstance use. Legal/Trauma/ History: Patient denies any current legal issues. Patient reports past legal history of child support violations. Patient denies any history of childhood abuse. Patient does report however his father when he was 11 years old which was a traumatic incident to him. Patient denies any history of trauma abuse as an adult. Patient denies any history Orbisonia or status. Family Constellation/Childhood History: Patient reports that he is currently to his living in [facility]. Patient reports that he has 3 biological children and 4 stepchildren. Patient reports that his father in his 11 years old. Patient did not report his mother is stillalive currently. Patient was born and raised in [place], [place] by his mother and father. He reports that his father when he was 11 years old, and this was traumatic for him. Patient reports that he was raisedprimarily by his mother for the remainder of his childhood. He denies childhood abuse. Education/Work: Patient reports that he graduated high school. 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 Patient denies SSI/SSD. Cultural/Spirituality/Leisure: Patient denies any cultural needs or concerns at the current time. Patient denies identify any sikhism preference. It is unknown if patient is [...] (Patient has history of psychiatric admission. Reports admissionwas due to suicidal ideation while intoxicated. Patient [...] plan, intent, or method but reports more increasedfeelings of depression and sadness) Activating Events (Recent): Recent loss(es) or other significant negative event(s) (legal, financial, relationship, etc.) Describe:: Ongoing struggles with substance use disorder Treatment History: Previous psychiatric diagnoses and treatments, Non-compliant with treatment, [facility] (Patient has mental health diagnosis depression [...] declined aftercare assistance while on the unit. MANAGER SITE will continue to work with patient to identify aftercare plans. Patient encouraged to engage in all activities thatare offered to them while they are on the unit. Patient report needing additional current time. Patient encouraged to seek out MANAGER SITE unit staff should they identify any additional [...] to contact the dictating provider for clarification. [facility] HospitalYciugf60-89-2375 Note* Care Coordination - BENNIE Solis - 07/09/2023 8:29 AM EDT Behavioral Health Psycho-Social Assessment (Social Work) Date: [...] been drinking heavily since he was a teenager.States that he several admissions for detox not [...] He has [facility] [place] [facility]. Patient has history of psychiatric admission. Reports admission was due to suicidal ideation while intoxicated Denies history of recent or past suicide attempts. Patient denies current SI/HI/AVH. Patient does have an extensive history of passive SI secondary to intoxication. Patient denies plan, intent, or method but reports more increased feelings of depression and sadness. Patient denies recentor past history of SIB. Substance Abuse/Use: Patient reports that he is currently drinking upwards of 9, 24 ounce Natty Daddy beers daily. Patient reports his last drink was 07/08/2023. Patient labs are positive for alcohol(0.358). Patient first drank alcohol when he was [...] Patient does have extensive history of falls whileintoxicated. Patient reports previous history of engagement with [...] poor nutrition and sleep secondary to his gomez bstance use. Legal/Trauma/ History: Patient denies any current legal issues. Patient reports past legal history of child support violations. Patient denies any history of childhood abuse. Patient does report however his father when he was 11 years old which was a traumatic incident to him. Patient denies any history of trauma abuse as an adult. Patient denies any history Orbisonia or status. Family Constellation/Childhood History: Patient reports that he is currently to his living in [facility]. Patient reports that he has 3 biological children and 4 stepchildren. Patient reports that his father in his 11 years old. Patient did not report his mother is stillalive currently. Patient was born and raised in [place], [place] by his mother and father. He reports that his father when he was 11 years old, and this was traumatic for him. Patient reports that he was raisedprimarily by his mother for the remainder of his childhood. He denies childhood abuse. Education/Work: Patient reports that he graduated high school. 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 Patient denies SSI/SSD. Cultural/Spirituality/Leisure: Patient denies any cultural needs or concerns at the current time. Patient denies identify any sikhism preference. It is unknown if patient is [...] (Patient has history of psychiatric admission. Reports admissionwas due to suicidal ideation while intoxicated. Patient [...] plan, intent, or method but reports more increasedfeelings of depression and sadness) Activating Events (Recent): Recent loss(es) or other significant negative event(s) (legal, financial, relationship, etc.) Describe:: Ongoing struggles with substance use disorder Treatment History: Previous psychiatric diagnoses and treatments, Non-compliant with treatment, [facility] (Patient has mental health diagnosis depression [...] declined aftercare assistance while on the unit. [facility] will continue to work with patient to identify aftercare plans. Patient encouraged to engage in all activities thatare offered to them while they are on the unit. Patient report needing additional current time. Patient encouraged to seek out [facility] unit staff should they identify any additional [...] to contact the dictating provider for clarification. [facility] HospitalYdbyhe44-68-4751 Hospital Discharge instructions* Discharge Instr - Other Orders* BENNIE Solis - 07/09/2023 8:26 AM EDT After detox you should abstain from any use of any mood altering chemical Appointment with your primary care physician should be scheduled It is highly recommended that you attend post hospital treatment Please read the information give to you - Intro to 12 step programs Call the National Suicide Prevention Hotline if needed at: 5-818-642-OHWK (9108) Please call the following number should you have questions regarding your discharge or aftercare appointments: [facility] documented in this encounterSNewark HospitalPcpfpj98-63-8290 Plan of care note* Care Plan - Roger Mullins RN - 07/09/2023 5:00 AM EDT Problem: Ineffective Coping Goal: Identifies ineffective coping skills Outcome: Progressing Goal: Identifies healthy coping skills Outcome: Progressing Goal: Demonstrates healthy coping skills Outcome: Progressing Problem: Anxiety Goal: Attempts to manage anxiety with help Outcome: Progressing Goal: Verbalizes ways to manage anxiety Outcome: Progressing Goal: Implements measures to reduce anxiety Outcome: Progressing [facility] HospitalIokrtf07-71-9355 Emergency department Note* Papito Ruiz RN - 07/09/2023 12:41 AM EDT Report to [facility] at bedside. Pt packaged for transport to [facility] detox. Final wanding by protective services. Papito Ruiz RN 07/09/23 004 [facility] HospitalIxtuyi08-50-4802 Emergency department Note* Papito Ruiz RN - 07/09/2023 12:41 AM EDT Report to [facility] at bedside. Pt packaged for transport to [facility] detox. Final wanding by protective services. Papito Ruiz RN 07/09/23 004 * Reynaldo Acevedo RN - 07/08/2023 10:59 PM EDT Report given to TISH Duran at by this RN. Reynaldo Acevedo RN 07/08/23 2259 * Catalino Mujica MD - 07/08/2023 5:43 PM EDT Emergency Department Encounter [facility] ED Patient: Maria De Jesus Hogan : [...] obtained to help differentiate these diagnostic possibilities anddetermine the most likely cause. Brief ED course/MDM: [...] are any questions or concerns please feel freeto contact the dictating provider for clarification.) CATALINO MUJICA MD [employer] Catalino Mujica MD 07/08/23 1809 * Mehul Galindo II, MD - 07/08/2023 5:43 PM EDT EMERGENCY DEPARTMENT ENCOUNTER Pt Name: Maria De Jesus Hogan Birthdate 1965 Date of evaluation: 07/08/2023 ED Provider: Mehul Galindo II, MD CHIEF COMPLAINT Chief Complaint Patient presents with Detox Pt. States he would like to come in for inpatient detox. States he has been drinking 8-9 tallboysper day since he was a teen. Pt. [...] bowel or bladder irregularities. Patient denies any recreationaldrug use. Nursing Notes were reviewed. Limitations to [...] CYST REMOVAL face EGD (HISTORICAL) 07/23/2022 Dr. Estrella-[facility] SMALL INTESTINE SURGERY UPPER GASTROINTESTINAL ENDOSCOPY 09/27/2021 [...] Depression Sister Maria De Jesus Hogan Other ([id number]) Sister Maria De Jesus Hogan agoraphobia Arthritis Sister Maria De Jesus Hogan Cancer Mother Maria De Jesus Hogan colon rectal cancer; dx after age 50 Other ([id number]) Mother Maria De Jesus Hogan alcoholism Alcohol abuse Mother Maria De Jesus Hogan Stroke Mother Maria De Jesus Hogan Other ([id number]) Father Maria De Jesus Hogan h/o rheumatic [...] 0 min Stress: Stress Concern Present (02/09/2023) [employer] [place] [employer] - Occupational Stress Questionnaire Feeling of Stress : Very much Social Connections: Moderately Isolated (02/09/2023) Social Connection and Isolation Panel [NHANES] Frequency of Communication with Friends and Family: More than three times a week Frequency of Social Gatherings with Friends and Family: More than three times a week Attends Taoist Services: Never Active Member of Clubs or [...] for medical treatment only. Analysis performed using non- forensic procedures. SARS-COV-2 ANTIGEN - Normal SARS-CoV-2 Antigen [...] If confirmation is needed, request confirmation under separateorder. All other labs were within normal range or not returned as of this dictation. EMERGENCY DEPARTMENT COURSE and DIFFERENTIAL DIAGNOSIS/MDM: Vitals: Vitals: 07/08/23 1746 07/08/23 1746 07/08/23 1906 07/08/23 2045 BP: (!) 145/103 103/65 BP Location: Right [...] cleared to be admitted to detox at [facility]. Patient was accepted to detox and [...] are any questions or concerns please feel freeto contact the dictating provider for clarification.) Mehul Galindo II, MD (electronically signed) Emergency Medicine Provider Mehul Galindo II, MD Resident 07/08/232053 documented in this [place] [address]-08-2024 Emergency department Note* Reynaldo Acevedo RN - 07/08/2023 10:59 PM EDT Report given to TISH Duran at by this RN. Reynaldo Acevedo RN 07/08/23 [address] [place] [address]Fnejkn05-49-7280 NoteNOTE: This result is for medical treatment only. Analysis performed using non-forensic procedures. [place] [address]Muuyby66-91-7069 Physician Emergency department Note* Catalino Mujica MD - 07/08/2023 5:43 PM EDT Emergency Department Encounter [facility] ED Patient: Maria De Jesus Hogan : [...] obtained to help differentiate these diagnostic possibilities anddetermine the most likely cause. Brief ED course/MDM: [...] are any questions or concerns please feel freeto contact the dictating provider for clarification.) CATALINO MUJICA MD Acute Care [facility] Catalino Mujica MD 07/08/23 [address] Phone: [phone] 112-685004-08-2024 Physician Emergency department Note* Mehul Galindo II, MD - 07/08/2023 5:43 PM EDT EMERGENCY DEPARTMENT ENCOUNTER Pt Name: Maria De Jesus Hogan Birthdate 1965 Date of evaluation: 07/08/2023 ED Provider: Mehul Galindo II, MD CHIEF COMPLAINT Chief Complaint Patient presents with Detox Pt. States he would like to come in for inpatient detox. States he has been drinking 8-9 tallboysper day since he was a teen. Pt. [...] bowel or bladder irregularities. Patient denies any recreationaldrug use. Nursing Notes were reviewed. Limitations to [...] CYST REMOVAL face EGD (HISTORICAL) 07/23/2022 Dr. Estrella-[facility] SMALL INTESTINE SURGERY UPPER GASTROINTESTINAL ENDOSCOPY 09/27/2021 [...] Depression Sister Maria De Jesus Hogan Other ([id number]) Sister Maria De Jesus Hogan agoraphobia Arthritis Sister Maria De Jesus Hogan Cancer Mother Maria De Jesus Hogan colon rectal cancer; dx after age 50 Other ([id number]) Mother Maria De Jesus Hogan alcoholism Alcohol abuse Mother Maria De Jesus Hogan Stroke Mother Maria De Jesus Hogan Other ([id number]) Father Maria De Jesus Hogan h/o rheumatic [...] 0 min Stress: Stress Concern Present (02/09/2023) [employer] [place] [employer] - Occupational Stress Questionnaire Feeling of Stress : Very much Social Connections: Moderately Isolated (02/09/2023) Social Connection and Isolation Panel [NHANES] Frequency of Communication with Friends and Family: More than three times a week Frequency of Social Gatherings with Friends and Family: More than three times a week Attends Taoist Services: Never Active Member of Clubs or [...] for medical treatment only. Analysis performed using non- forensic procedures. SARS-COV-2 ANTIGEN - Normal SARS-CoV-2 Antigen [...] If confirmation is needed, request confirmation under separateorder. All other labs were within normal range [...] cleared to be admitted to detox at [facility]. Patient was accepted to detox and [...] are any questions or concerns please feel freeto contact the dictating provider for clarification.) Mehul Galindo II, MD (electronically signed) Emergency Medicine Provider Mehul Galindo II, MD Resident 07/08/232053 [facility] HospitalPwgudf63-52-1315 Telephone encounter Note* Telephone Encounter - Lakia Damon MA - 06/26/2023 1:52 PM EDT MARIYA 9.27.23 FEB 02.24 [facility] HospitalLigedq55-44-4950 Telephone encounter Note* Telephone Encounter - Lakia Damon MA - 06/26/2023 1:52 PM EDT MARIYA 9.27.23 FEB 02.424 [facility] HospitalSskaiw09-87-0635 Miscellaneous Notes* Telephone Encounter - Lakia Damon MA - 06/26/2023 1:52 PM EDT MARIYA 9.27.23 NOV 4.4.24 documented in this [place] [address]-27-2024 Miscellaneous Notes* Telephone Encounter - Lakia Damon MA - 06/26/2023 1:52 PM EDT MARIYA 9.27.23 NOV 4.4.24 documented in this [place] [address]-16-2024 Telephone encounter Note* Telephone Encounter - Karolina Krueger RN - 06/15/2023 6:37 PM EDT This [facility] RN spoke to patient. He [...] out. He said our program is great. [facility] HospitalNxciaj77-94-8944 Miscellaneous Notes* Telephone Encounter - Karolina Krueger RN - 06/15/2023 6:37 PM EDT This [facility] RN spoke to patient. He [...] our program is great. documented in this [place] [address]-16-2024 Telephone encounter Note* Telephone Encounter - Karolina Krueger RN - 06/15/2023 6:33 PM EDT Left message to call back ACC RN. [facility] HospitalYjbusy43-76-3600 Miscellaneous Notes* Telephone Encounter - Karolina Krueger RN - 06/15/2023 6:33 PM EDT Left message to call back ACC RN. documented in this [facility]03-07-2024 History of Present illness Narrative* PABLO Paul - 06/06/2023 1:30 PM EST Missed Session Unexcused Pt did not call or show for Scheduled Assessment on this date. documented in this [facility]02-22-2024 Nurse Note* Julianna Hampton RN - 05/23/2023 4:37 PM EST Patient signed AMA papers and IV was discontinued per Patient request. 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 [facility] HospitalSspexf11-05-0368 Nurse Note* Julianna Hampton RN - 05/23/2023 4:37 PM EST Patient signed AMA papers and IV was discontinued per Patient request. 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 * Julianna Hampton RN - 05/23/2023 12:03 PM EST Patient is stating that patient is leaving [...] be able to participate in the IOP programper Dr. Rodriguez due to AMA. Patient verbalized understanding. Patient continues to walk around unit at a very fast pace, multiple times an hour. documented in this [facility]02-22-2024 Note* Care Coordination - Ori Bone RN - 05/23/2023 1:21 PM EST Images from the original note were [...] Stay (Days): 3 GMLOS: No GMLOS Documented [facility]02-22-2024 Note* Care Coordination - Ori Bone RN - 05/23/2023 1:21 PM EST Images from the original note were [...] Stay (Days): 3 GMLOS: No GMLOS Documented [facility]02-22-2024 Miscellaneous Notes* Care Coordination - Ori Bone RN - 05/23/2023 1:21 PM EST Images from the original note were [...] Stay (Days): 3 GMLOS: No GMLOS Documented * Care Coordination - Raina Salgado - 05/22/2023 4:25 PM EST [facility] Case Management/Care Coordination Note Date of Contact: 05/22/23 Start Time: 4:20 PM End Time: 4:25 PM Duration: 5 mins Type of Contact: [id number] Patient's Identified Case Management/Care Coordination Need(s) addressed [...] changes in his schedule/questions/concerns prior to appointment. * Care Coordination - Ori Bone RN - 05/22/2023 3:56 PM EST Care Managment Initial Assessment Date: 05/22/2023 Patient Name: Maria De Jesus Hogan : 1965 Patient Information Source of Information: Patient Cognition/Language: WFL - Within Functional Limits Permission given to speak with patient appeals representative/caregiver as indicated: Yes Confirmation of Payer with patient/family: Yes Payer Name: [place] Medicaid : No Confirmation of Primary Care Physician: Confirmed PCP Name: Dr. Rasheed Seen in last 2 years?: Yes Primary Caregiver: Self If assistance needed, confirmed caregiver ready, willing and able to care for patient at discharge:Yes Confirmed with: spouse June Living Arrangements Current [...] positive for ethyl only this admission Iv [id number] q 4 hrs with lorazepam CIWA 3 per bedside RN. VSS IA completed with pt this am Introduced self and role. Pt is not employed Independent and resides with spouse in two story home flight to master b/b. Uses no DME Verified insurance and pharmacy as per [employer]. DCP home no needs when clinically cleared for dc. Tcc to follow. Ori Bone RN documented in this [facility]02-22-2024 Nurse Note* Julianna Hampton RN - 05/23/2023 12:03 PM EST Patient is stating that patient is leaving [...] be able to participate in the IOP programper Dr. Rodriguez due to AMA. Patient verbalized understanding. Patient continues to walk around unit at a very fast pace, multiple times an hour. [facility] HospitalThmoef38-49-0854 History of Present illness Narrative* Bryan Rodriguez MD - 05/23/2023 11:24 AM EST Images from the original note [...] 0 min Stress: Stress Concern Present (02/09/2023) [employer] [place] [employer] - Occupational Stress Questionnaire Feeling of Stress : Very much Social Connections: Moderately Isolated (02/09/2023) Social Connection and Isolation Panel [NHANES] Frequency of Communication with Friends and Family: More than three times a week Frequency of Social Gatherings with Friends and Family: More than three times a week Attends Taoist Services: Never Active Member of Clubs or [...] CYST REMOVAL face EGD (HISTORICAL) 07/23/2022 Dr. Estrella-[facility] SMALL INTESTINE SURGERY UPPER GASTROINTESTINAL ENDOSCOPY 09/27/2021 normal WISDOM TOOTH EXTRACTION Family History Problem Relation Name Age of Onset Depression Sister Maria De Jesus Hogan Other ([id number]) Sister Maria De Jesus Hogan agoraphobia Arthritis Sister Maria De Jesus Hogan Cancer Mother Maria De Jesus Hogan colon rectal cancer; dx after age 50 Other ([id number]) Mother Maria De Jesus Hogan alcoholism Alcohol abuse Mother Maria De Jesus Hogan Stroke Mother Maria De Jesus Hogan Other ([id number]) Father Maria De Jesus Hogan h/o rheumatic fever, cardiac arrest due to bee sting Hypertension Father Maria De Jesus Hoagn Labs No results found for this or [...] before October 23, 2022. 10/23/22 Robyn Edmond, RN INFUSION - PARADI TENDER nicotine polacrilex (Commit) 2 MG lozenge Dissolve [...] my recommendation is that he be signed outAGAINST MEDICAL ADVICE since he has not completed detoxification. He understands that since he did not safely complete detoxification, he would not be eligible for our intensive outpatient program. Case discussed with nurse practitioner and nursing team. BRYAN RODRIGUEZ MD Addiction Medicine 05/23/2023 at 11:24 AM --50-- minutes were spent reviewing the patient's records, evaluating the patient, entering orders,coordinating care with the treatment team, and creating a progress note. Narrative portions of the note are written utilizing [employer] software. While every effort is made todictate clearly and proofread, errors in the dictation may still occur. If there are any questions regarding the dictation please do not hesitate to contact the author. * Sia Bruce Roma, RN INFUSION - PARADI TENDER - 05/23/2023 5:59 AM EST Images from the original note were not included. Hospitalist Progress Note 05/23/2023 Subjective: Admit Date: 05/20/2023 PCP: Lynda Rasheed MD Room#: B1-148/B1-148 A Brief Hospital course: Maria De Jesus Hogan is a 57 y.o. who presents to the emergency department with chief complaint of needing detox. Patient drinks heavily daily. He also notes he had nausea and vomiting for last monththat is new he has had episodes of this in the past but is making it difficult to actually drink. No fevers diarrhea chest pain as well as shortness of breath but he smokes and is never been formallydiagnosed with COPD but feels like he may have this. Interval History: Patient seen in his room. The patient remains somewhat hyperactive and tremulous. He denies any sweats, nausea, headaches. Patient remains tachycardic. He is 72 hours into his last drink. He states he drinks 6-8 tall boys (24 ounce beers) daily. He was informed that addiction medicine does not feelhe is ready for discharge from the hospital and if he leaves he will need to sign out AMA. The patient was very secretive about this with the nurse states he did not want his to know that he wassigning out AMA.. Again the patient was told [...] not be eligible for OP treatment. This wasrelayed to the pt (LOW: 2x CAT1 or [...] by the following SDOH: Refusing adequate withdrawal treatment(MOD). Advance Directive: Full Code Anticipated Discharge - [...] Primary Emergency Contact: Samira Mobile Relation: Spouse JUAN CLAUDIO CNP Division of Hospitalist Medicine [facility] Comment: Please note this report has been produced using speech recognition software and may contain errors related to that system including errors in grammar, punctuation, and spelling, as well as words and phrases that may be inappropriate. If there is any questions or concerns please feel free to contact the dictating provider for clarification * Bryan Rodriguez MD - 05/22/2023 11:15 AM EST Images from the original note [...] 0 min Stress: Stress Concern Present (02/09/2023) [employer] [place] [employer] - Occupational Stress Questionnaire Feeling of Stress : Very much Social Connections: Moderately Isolated (02/09/2023) Social Connection and Isolation Panel [NHANES] Frequency of Communication with Friends and Family: More than three times a week Frequency of Social Gatherings with Friends and Family: More than three times a week Attends Taoist Services: Never Active Member of Clubs or [...] CYST REMOVAL face EGD (HISTORICAL) 07/23/2022 Dr. Estrella-[facility] SMALL INTESTINE SURGERY UPPER GASTROINTESTINAL ENDOSCOPY 09/27/2021 normal WISDOM TOOTH EXTRACTION Family History Problem Relation Name Age of Onset Depression Sister Maria De Jesus Hogan Other ([id number]) Sister Maria De Jesus Hogan agoraphobia Arthritis Sister Maria De Jesus Hogan Cancer Mother Maria De Jesus Hogan colon rectal cancer; dx after age 50 Other ([id number]) Mother Maria De Jesus Hogan alcoholism Alcohol abuse Mother Maria De Jesus Hogan Stroke Mother Maria De Jesus Hogan Other ([id number]) Father Maria De Jesus Hogan h/o rheumatic [...] 381 ms QTC Interval 484 ms P [place] 78 degrees QRS [place] 75 degrees T Wave [place] 60 degrees RI Interval 154 ms POCT venous blood gas [...] topically 2 times daily. 09/25/22 05/23/23 Lynda Rsaheed MD gabapentin (Neurontin) 600 MG tablet Take [...] 23, 2022. 10/23/22 Robyn Edmond APRN - PARADI TENDER nicotine polacrilex (Commit) 2 MG lozenge Dissolve [...] ordered and will reassess on May 22. Leon contacted the outpatient program to have one of the counselors meet with the patient ,to make the necessary arrangements for him to enter the IOP program. BRYAN RODRIGUEZ MD Addiction Medicine 05/22/2023 at 11:15 AM ---50- minutes were spent reviewing the patient's records, evaluating the patient, entering orders,coordinating care with the treatment team, and creating a progress note. Narrative portions of the note are written utilizing Scanadu software. While every effort is made todictate clearly and proofread, errors in the dictation may still occur. If there are any questions regarding the dictation please do not hesitate to contact the author. * Eda Enriquez, RN INFUSION - PARADI TENDER - 05/22/2023 9:20 AM EST Images from the original note were not included. Hospitalist Progress Note 05/22/2023 Subjective: Admit Date: 05/20/2023 PCP: Lynda Rasheed MD Room#: B1-148/B1-148 A Brief Hospital course: Maria De Jesus Hogan is a 57 y.o. who presents to the emergency department with chief complaint of needing detox. Patient drinks heavily daily. He also notes he had nausea and vomiting for last monththat is new he has had episodes of this in the past but is making it difficult to actually drink. No fevers diarrhea chest pain as well as shortness of breath but he smokes and is never been formallydiagnosed with COPD but feels like he may [...] Extended Emergency Contact Information Primary Emergency Contact: Melvern,April Mobile Relation: Spouse JUAN ANAYA CNP Division of Hospitalist Medicine [employer] * Mae Rivas - 05/22/2023 8:47 AM EST Nutrition rescreen completed. Chart reviewed. 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 * JUAN Anaya CNP - 05/21/2023 9:01 AM EST Hospitalist Progress Note 05/21/2023 9:01 AM [phone]: Please reach me on [employer] Secure Chat for patient care issues. [phone]: Please page IMS night Hospitalist for any [...] studies, imaging, and progress notes reviewed. JUAN ANAAY CNP Division of Hospitalist Medicine [facility] Comment: Please note this report has been produced using speech recognition software and may contain errors related to that system including errors in grammar, punctuation, and spelling, as well as words and phrases that may be inappropriate. If there is any questions or concerns please feel free to contact the dictating provider for clarification documented in this [facility]02-21-2024 Note* Care Coordination - Raina Salgado - 05/22/2023 4:25 PM EST Outpatient [facility] Case Management/Care Coordination Note Date of Contact: 05/22/23 Start Time: 4:20 PM End Time: 4:25 PM Duration: 5 mins Type of Contact: [id number] Patient's Identified Case Management/Care Coordination Need(s) addressed [...] changes in his schedule/questions/concerns prior to appointment. [facility] [id number] Note* Care Coordination - Raina Salgado - 05/22/2023 4:25 PM EST [facility] Case Management/Care Coordination Note Date of Contact: 05/22/23 Start Time: 4:20 PM End Time: 4:25 PM Duration: 5 mins Type of Contact: [id number] Patient's Identified Case Management/Care Coordination Need(s) addressed [...] changes in his schedule/questions/concerns prior to appointment. [facility] [id number] Note* Care Coordination - Ori Bone RN - 05/22/2023 3:56 PM EST Care Managment Initial Assessment Date: 05/22/2023 Patient Name: Maria De Jesus Hogan : 1965 Patient Information Source of Information: Patient Cognition/Language: WFL - Within Functional Limits Permission given to speak with patient appeals representative/caregiver as indicated: Yes Confirmation of Payer with patient/family: Yes Payer Name: [place] [employer] [place]: No Confirmation of Primary Care Physician: Confirmed PCP Name: Dr. Rasheed Seen in last 2 years?: Yes Primary Caregiver: Self If assistance needed, confirmed caregiver ready, willing and able to care for patient at discharge:Yes Confirmed with: spouse June Living Arrangements Current [...] positive for ethyl only this admission Iv [id number] q 4 hrs with lorazepam CIWA 3 per bedside RN. VSS IA completed with pt this am Introduced self and role. Pt is not employed Independent and resides with spouse in two story home flight to master b/b. Uses no DME Verified insurance and pharmacy as per [facility]. DCP home no needs when clinically cleared for dc. Tcc to follow. Ori Bone RN [id number] Note* Care Coordination - Ori Bone RN - 05/22/2023 3:56 PM EST Care Managment Initial Assessment Date: 05/22/2023 Patient Name: Maria De Jesus Hogan : 1965 Patient Information Source of Information: Patient Cognition/Language: WFL - Within Functional Limits Permission given to speak with patient appeals representative/caregiver as indicated: Yes Confirmation of Payer with patient/family: Yes Payer Name: [place] Medicaid : No Confirmation of Primary Care Physician: Confirmed PCP Name: Dr. Rasheed Seen in last 2 years?: Yes Primary Caregiver: Self If assistance needed, confirmed caregiver ready, willing and able to care for patient at discharge:Yes Confirmed with: spouse Judy Living Arrangements Current Residence: House Number of [...] positive for ethyl only this admission Iv [id number] q 4 hrs with lorazepam CIWA 3 per bedside RN. VSS IA completed with pt this am Introduced self and role. Pt is not employed Independent and resides with spouse in two story home flight to master b/b. Uses no DME Verified insurance and pharmacy as per [employer]. DCP home no needs when clinically cleared for dc. Tcc to follow. Ori Bone RN [facility]02-20-2024 Emergency department Note* Candy Pearson RN - 05/21/2023 11:54 AM EST Sleeping soundly, respirations normal. Could not awaken with calling out name and slight touch. Left resources regarding addiction peer support at bedside with note. Candy Pearson RN 05/21/23 1156 [id number] Emergency department Note* Candy Pearson RN - 05/21/2023 11:54 AM EST Sleeping soundly, respirations normal. Could not awaken with calling out name and slight touch. Left resources regarding addiction peer support at bedside with note. Candy Pearson RN 05/21/23 1156 * Estella De Dios RN - 05/21/2023 8:11 AM EST Pt upset with having all the cords and I dont need these blue things (seizure pads) educated pt on need for seizure pads due to the potential for seizures with withdrawal. RN placed another IV in hand per pt request to make the IV pump stop beeping. BP cuff removed. Estella De Dios RN 05/21/23 0814 * Estella De Dios RN - 05/21/2023 7:20 AM EST Rounding on pt: pt states I don't know I might need some more of that medicine CIWA reassessed, pt c/o anxiety and jitteriness, slight agitation Estella De Dios RN 05/21/23 0739 * Alpa Middleton RN - 05/21/2023 7:00 AM EST Patient ordered breakfast. Alpa Middleton RN 05/21/23 0700 * Alpa Middleton RN - 05/21/2023 4:25 AM EST Seizure pads placed on patient's bed at this time. Alpa Middleton RN 05/21/23 0425 * Alpa Middleton RN - 05/21/2023 3:11 AM EST Patient told this RN that he is now feeling more jittery and anxious than before. CIWA reassessed. Alpa Middleton RN 05/21/23 0312 * Alpa Middleton RN - 05/20/2023 11:18 PM EST Patient placed on NRB while sleeping. SPO2 was dropping while asleep due to mouth breathing. Patient now at 97% Alpa Middleton RN 05/20/23 0380 * Judy Higgins RN - 05/20/2023 10:35 PM EST [facility] paged Judy Higgins RN 05/20/23 1920 * Judy Higgins RN - 05/20/2023 10:33 PM EST Detox full per Dr Jennifer Higgins RN 05/20/232233 * Scooter Luna MD - 05/20/2023 7:44 PM EST EMERGENCY DEPARTMENT ENCOUNTER Pt Name: Maria De Jesus Hogan Birthdate 1965 Date of evaluation: 05/20/2023 ED Provider: Scooter Luna MD CHIEF COMPLAINT Chief Complaint Patient presents with Alcohol Problem Pt. States he would like to do inpatient detox from alcohol. States he drinks 3-4 tall boys of beer per day. 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 HISTORY OF PRESENT ILLNESS (Location/Symptom, Timing/Onset, Context/Setting, Quality, Duration, Modifying Factors, Severity) Note limiting factors. I wore appropriate PPE for the entirety of this encounter. HPI Maria De Jesus Hogan is a 57 y.o. who presents to the emergency department with chief complaint of needing detox. Patient drinks heavily daily. He also notes he had nausea and vomiting for last monththat is new he has had episodes of this in the past but is making it difficult to actually drink. No fevers diarrhea chest pain as well as shortness of breath but he smokes and is never been formallydiagnosed with COPD but feels like he may [...] CYST REMOVAL face EGD (HISTORICAL) 07/23/2022 Dr. Estrella-[facility] SMALL INTESTINE SURGERY UPPER GASTROINTESTINAL ENDOSCOPY 09/27/2021 [...] Depression Sister Maria De Jesus Hogan Other ([id number]) Sister Maria De Jesus Hogan agoraphobia Arthritis Sister Maria De Jesus Hogan Cancer Mother Maria De Jesus Hogan colon rectal cancer; dx after age 50 Other ([id number]) Mother Maria De Jesus Hogan alcoholism Alcohol abuse Mother Maria De Jesus Hogan Stroke Mother Maria De Jesus Hogan Other ([id number]) Father Maria De Jesus Hogan h/o rheumatic [...] 0 min Stress: Stress Concern Present (02/09/2023) [employer] [place] [employer] - Occupational Stress Questionnaire Feeling of Stress : Very much Social Connections: Moderately Isolated (02/09/2023) Social Connection and Isolation Panel [NHANES] Frequency of Communication with Friends and Family: More than three times a week Frequency of Social Gatherings with Friends and Family: More than three times a week Attends Taoist Services: Never Active Member of Clubs or [...] Culture. Procedure Abnormality Status --------- ------ Complete Urinalysis[[id number]] Please view results for these tests on the individual orders. TROPONIN I COMPLETE URINALYSIS All other labs were within normal range or not returned as of this dictation. EMERGENCY DEPARTMENT COURSE and DIFFERENTIAL DIAGNOSIS/MDM: Vitals: Vitals: 05/20/23 1945 05/20/23194605/20/231947 BP: (!) 158/111 Pulse: (!) 117 Resp: [...] [address] to rule outother dangerous pathology such as mass and obstruction [...] are any questions or concerns please feel freeto contact the dictating provider for clarification.) Scooter Luna MD (electronically signed) Emergency Medicine Provider Scooter Luna MD 05/20/232025 documented in this [facility]02-20-2024 Consult note* Bryan Rodriguez MD - 05/21/2023 10:42 AM ESTAssociated Order(s): IP CONSULT TO ADDICTION MEDICINE Images from the original note were not included. Addiction Medicine Patient: Maria De Jesus Hogan Admit Date: 05/20/2023 Primary Care Physician: Lynda Rasheed MD History of Present Illness Patient is a 57-year-old male presenting to [facility] for stabilization of alcohol dependence/withdrawal. Patient does have an extensive history of problematic alcohol use dating back to histeens. Positive history loss of control, increased tolerance, [...] 0 min Stress: Stress Concern Present (02/09/2023) [employer] [place] [employer] - Occupational Stress Questionnaire Feeling of Stress : Very much Social Connections: Moderately Isolated (02/09/2023) Social Connection and Isolation Panel [NHANES] Frequency of Communication with Friends and Family: More than three times a week Frequency of Social Gatherings with Friends and Family: More than three times a week Attends Taoist Services: Never Active Member of Clubs or [...] CYST REMOVAL face EGD (HISTORICAL) 07/23/2022 Dr. Estrella-[facility] SMALL INTESTINE SURGERY UPPER GASTROINTESTINAL ENDOSCOPY 09/27/2021 normal WISDOM TOOTH EXTRACTION Family History Problem Relation Name Age of Onset Depression Sister Maria De Jesus Hogan Other ([id number]) Sister Maria De Jesus Hogan agoraphobia Arthritis Sister Maria De Jesus Hogan Cancer Mother Maria De Jesus Hogan colon rectal cancer; dx after age 50 Other ([id number]) Mother Maria De Jesus Hogan alcoholism Alcohol abuse Mother Maria De Jesus Hogan Stroke Mother Maria De Jesus Hogan Other ([id number]) Father Maria De Jesus Hogan h/o rheumatic [...] 381 ms QTC Interval 484 ms P [place] 78 degrees QRS [place] 75 degrees T Wave [place] 60 degrees RI Interval 154 ms POCT venous blood gas [...] before October 23, 2022. 10/23/22 Robyn Edmond, RN INFUSION - PARADI TENDER nicotine polacrilex (Commit) 2 MG lozenge Dissolve [...] the patient's records, evaluating the patient, entering orders,coordinating care with the treatment team, and creating a progress note. Narrative portions of the note are written utilizing Scanadu software. While every effort is made todictate clearly and proofread, errors in the dictation may still occur. If there are any questions regarding the dictation please do not hesitate to contact the author. [facility] [id number] Consult note* Bryan Rodriguez MD - 05/21/2023 10:42 AM EST Associated Order(s): IP CONSULT TO ADDICTION MEDICINE Images from the original note were not included. Addiction Medicine Patient: Maria De Jesus Hogan Admit Date: 05/20/2023 Primary Care Physician: Lynda Rasheed MD History of Present Illness Patient is a 57-year-old male presenting to [facility] for stabilization of alcohol dependence/withdrawal. Patient does have an extensive history of problematic alcohol use dating back to . Positive history loss of control, increased tolerance, [...] he has been through multiple detoxifications with [facility] dating back to 2014. He is [...] 0 min Stress: Stress Concern Present (02/09/2023) [employer] [place] [employer] - Occupational Stress Questionnaire Feeling of Stress : Very much Social Connections: Moderately Isolated (02/09/2023) Social Connection and Isolation Panel [NHANES] Frequency of Communication with Friends and Family: More than three times a week Frequency of Social Gatherings with Friends and Family: More than three times a week Attends Taoist Services: Never Active Member of Clubs or [...] CYST REMOVAL face EGD (HISTORICAL) 07/23/2022 Dr. Estrella-[facility] SMALL INTESTINE SURGERY UPPER GASTROINTESTINAL ENDOSCOPY 09/27/2021 normal WISDOM TOOTH EXTRACTION Family History Problem Relation Name Age of Onset Depression Sister Maria De Jesus Hogan Other ([id number]) Sister Maria De Jesus Hogan agoraphobia Arthritis Sister Maria De Jesus Hogan Cancer Mother Maria De Jesus Hogan colon rectal cancer; dx after age 50 Other ([id number]) Mother Maria De Jesus Hogan alcoholism Alcohol abuse Mother Maria De Jesus Hogan Stroke Mother Maria De Jesus Hogan Other ([id number]) Father Maria De Jesus Hogan h/o rheumatic [...] 381 ms QTC Interval 484 ms P [place] 78 degrees QRS [place] 75 degrees T Wave [place] 60 degrees RI Interval 154 ms POCT venous blood gas [...] 23, 2022. 10/23/22 Robyn Edmond APRN - PARADI TENDER nicotine polacrilex (Commit) 2 MG lozenge Dissolve [...] the patient's records, evaluating the patient, entering orders,coordinating care with the treatment team, and creating a progress note. Narrative portions of the note are written utilizing Scan[employer]u software. While every effort is made todictate clearly and proofread, errors in the dictation may still occur. If there are any questions regarding the dictation please do not hesitate to contact the author. documented in this [facility]02-20-2024 Emergency department Note* Estella De Dios RN - 05/21/2023 8:11 AM EST Pt upset with having all the cords and I dont need these blue things (seizure pads) educated pt on need for seizure pads due to the potential for seizures with withdrawal. RN placed another IV in hand per pt request to make the IV pump stop beeping. BP cuff removed. Estella De Dios RN 05/21/[address]20-2024 Emergency department Note* Estella De Dios RN - 05/21/2023 7:20 AM EST Rounding on pt: pt states I don't know I might need some more of that medicine CIWA reassessed, pt c/o anxiety and jitteriness, slight agitation Estella De Dios RN 05/21/[address]20-2024 Emergency department Note* Alpa Middleton RN - 05/21/2023 7:00 AM EST Patient ordered breakfast. Alpa Middleton RN 05/21/[address]20-2024 Emergency department Note* Alpa Middleton RN - 05/21/2023 4:25 AM EST Seizure pads placed on patient's bed at this time. Alpa Middleton RN 05/21/[address]20-2024 Emergency department Note* Alpa Middleton RN - 05/21/2023 3:11 AM EST Patient told this RN that he is now feeling more jittery and anxious than before. CIWA reassessed. Alpa Middleton RN 05/21/23 0312 [facility] [id number] History and physical note* Shelly Cruz MD - 05/21/2023 2:34 AM EST Images from the original note were not included. History and Physical [facility] : 1965 AGE 57 y.o. YEARS Note [...] per day. 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 Estrella-[facility] SMALL INTESTINE SURGERY UPPER GASTROINTESTINAL ENDOSCOPY 09/27/2021 [...] Depression Sister Maria De Jesus Hogan Other ([phone]) Sister Maria De Jesus Hogan agoraphobia Arthritis Sister Maria De Jesus Hogan Cancer Mother Maria De Jesus Hogan colon rectal cancer; dx after age 50 Other ([id number]) Mother Maria De Jesus Hogan alcoholism Alcohol abuse Mother Maria De Jesus Hogan Stroke Mother Maria De Jesus Hogan Other ([id number]) Father Maria De Jesus Hogan h/o rheumatic [...] without any focal sensory/motor deficits. Cranial nerves grosslyintact. Labs Admission on 05/20/2023 Component Date Value [...] 05/20/2023 381 QTC Interval 05/20/2023 484 P [place] 05/20/2023 78 QRS [place] 05/20/2023 75 T Wave [place] 05/20/2023 60 RI Interval 05/20/2023 154 Color, Urine 05/20/2023 Colorless [...] QT Interval 381 QTC Interval 484 P [place] 78 QRS [place] 75 T Wave [place] 60 RI Interval 154 Impression Sinus rhythm Consider left atrial enlargement Abnormal T, consider ischemia, anterior leads No previous ECG available for comparison Assessment/Plan and Medical Decision Making Etoh abuse He is a daily drinker and has drank heavily for about 20 years although sometimes he hasbeen able to quit most recently after attending inpatient program last fall he was able to quit fora month. He strongly desires to quit He [...] and mechanical contraindicated 05/21/2023 Maria De Jesus [place] [phone] Any scheduled follow up appointments Extended Emergency Contact Information Primary Emergency Contact: Melvern Mobile Relation: Spouse Portions of this note may be electronically transcribed. Please forward a copy of this H&P to the primary care physician. [facility] [employer] Work Phone: 1(653) 785-294402-20-2024 History and physical note* Shelly Cruz MD - 05/21/2023 2:34 AM EST Images from the original note were not included. History and Physical [facility] Maria De Jesus Hogan : 1965 [...] per day. 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 Estrella-[facility] SMALL INTESTINE SURGERY UPPER GASTROINTESTINAL ENDOSCOPY 09/27/2021 [...] Depression Sister Maria De Jesus Hogan Other ([id number]) Sister Maria De Jesus Hogan agoraphobia Arthritis Sister Maria De Jesus Hogan Cancer Mother Maria De Jesus Hogan colon rectal cancer; dx after age 50 Other ([id number]) Mother Maria De Jesus Hogan alcoholism Alcohol abuse Mother Maria De Jesus Hogan Stroke Mother Maria De Jesus Hogan Other ([id number]) Father Maria De Jesus Hogan h/o rheumatic [...] without any focal sensory/motor deficits. Cranial nerves grosslyintact. Labs Admission on 05/20/2023 Component Date Value [...] 05/20/2023 381 QTC Interval 05/20/2023 484 P [place] 05/20/2023 78 QRS [place] 05/20/2023 75 T Wave [place] 05/20/2023 60 RI Interval 05/20/2023 154 Color, Urine 05/20/2023 Colorless [...] QT Interval 381 QTC Interval 484 P [place] 78 QRS [place] 75 T Wave [place] 60 RI Interval 154 Impression Sinus rhythm Consider left atrial enlargement Abnormal T, consider ischemia, anterior leads No previous ECG available for comparison Assessment/Plan and Medical Decision Making Etoh abuse He is a daily drinker and has drank heavily for about 20 years although sometimes he hasbeen able to quit most recently after attending inpatient program last fall he was able to quit fora month. He strongly desires to quit He [...] mechanical contraindicated 05/21/2023 Maria De Jesus Hogan [id number] Any scheduled follow up appointments Extended Emergency Contact Information Primary Emergency Contact: Samira Mobile Relation: Spouse Portions of this note may be electronically transcribed. Please forward a copy of this H&P to the primary care physician. documented in this [place] [address]-19-2024 Emergency department Note* Alpa Middleton RN - 05/20/2023 11:18 PM EST Patient placed on NRB while sleeping. SPO2 was dropping while asleep due to mouth breathing. Patient now at 97% Alpa Middleton RN 05/20/232325 [id number] Emergency department Note* Judy Higgins RN - 05/20/2023 10:35 PM EST [facility] paged Judy Higgins RN 05/20/232234 [id number] Emergency department Note* Judy Higgins RN - 05/20/2023 10:33 PM EST Detox full per Dr Jennifer Higgins RN 05/20/232233 [id number] Physician Emergency department Note* Scooter Luna MD - 05/20/2023 7:44 PM EST EMERGENCY DEPARTMENT ENCOUNTER Pt Name: Maria De Jesus Hogan Birthdate 1965 Date of evaluation: 05/20/2023 ED Provider: Scooter Luna MD CHIEF COMPLAINT Chief Complaint Patient presents with Alcohol Problem Pt. States he would like to do inpatient detox from alcohol. States he drinks 3-4 tall boys of beer per day. 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 HISTORY OF PRESENT ILLNESS (Location/Symptom, Timing/Onset, Context/Setting, Quality, Duration, Modifying Factors, Severity) Note limiting factors. I wore appropriate PPE for the entirety of this encounter. HPI Maria De Jesus Hogan is a 57 y.o. who presents to the emergency department with chief complaint of needing detox. Patient drinks heavily daily. He also notes he had nausea and vomiting for last monththat is new he has had episodes of this in the past but is making it difficult to actually drink. No fevers diarrhea chest pain as well as shortness of breath but he smokes and is never been formallydiagnosed with COPD but feels like he may [...] CYST REMOVAL face EGD (HISTORICAL) 07/23/2022 Dr. Estrella-[facility] SMALL INTESTINE SURGERY UPPER GASTROINTESTINAL ENDOSCOPY 09/27/2021 [...] Depression Sister Maria De Jesus Hogan Other ([id number]) Sister Maria De Jesus Hogan agoraphobia Arthritis Sister Maria De Jesus Hogan Cancer Mother Maria De Jesus Hogan colon rectal cancer; dx after age 50 Other ([id number]) Mother Maria De Jesus Hogan alcoholism Alcohol abuse Mother Maria De Jesus Hogan Stroke Mother Maria De Jesus Hogan Other ([phone]) Father Maria De Jesus Hogan h/o rheumatic [...] 0 min Stress: Stress Concern Present (02/09/2023) [employer] [place] [employer] - Occupational Stress Questionnaire Feeling of Stress : Very much Social Connections: Moderately Isolated (02/09/2023) Social Connection and Isolation Panel [NHANES] Frequency of Communication with Friends and Family: More than three times a week Frequency of Social Gatherings with Friends and Family: More than three times a week Attends Taoist Services: Never Active Member of Clubs or [...] Culture. Procedure Abnormality Status --------- ------ Complete Urinalysis[[id number]] Please view results for these tests on [...] [address] to rule outother dangerous pathology such as mass and obstruction [...] are any questions or concerns please feel freeto contact the dictating provider for clarification.) Scooter Luna MD (electronically signed) Emergency Medicine Provider Scooter Luna MD 05/20/232025 [facility]nunpc07-[facility]-7632 Telephone encounter Note* Telephone Encounter - Kristina Fan MA - 04/24/2023 12:35 PM EST Last OV:12/26/22 Scheduled:n/a [id number] Miscellaneous Notes* Telephone Encounter - Kristina Fan MA - 04/24/2023 12:35 PM EST Last OV:12/26/22 Scheduled:n/a documented in this [facility]12-19-2023 Emergency department Note* Catalino Waddell MD - 03/19/2023 10:13 AM EST EMERGENCY DEPARTMENT ENCOUNTER Pt Name: Maria De [...] His tetanus is up-to-date. He has normal movementsensation but is painful. He is right-handed. No [...] CYST REMOVAL face EGD (HISTORICAL) 07/23/2022 Dr. Estrella[facility] SMALL INTESTINE SURGERY UPPER GASTROINTESTINAL ENDOSCOPY 09/27/2021 [...] Depression Sister Maria De Jesus Hogan Other ([id number]) Sister Maria De Jesus Hogan agoraphobia Arthritis Sister Maria De Jesus Hogan Cancer Mother Maria De Jesus Hogan colon rectal cancer; dx after age 50 Other ([id number]) Mother Maria De Jesus Hogan alcoholism Alcohol abuse Mother Maria De Jesus Hogan Stroke Mother Maria De Jesus Hogan Other ([phone]) Father Maria De Jesus Hogan h/o rheumatic [...] 0 min Stress: Stress Concern Present (02/09/2023) [employer] [place] [employer] - Occupational Stress Questionnaire Feeling of Stress : Very much Social Connections: Moderately Isolated (02/09/2023) Social Connection and Isolation Panel [NHANES] Frequency of Communication with Friends and Family: More than three times a week Frequency of Social Gatherings with Friends and Family: More than three times a week Attends Taoist Services: Never Active Member of Clubs or [...] nailbed hematoma or laceration, capillary refill normal sensationmovement normal. Skin: General: Skin is warm and [...] AM PATIENT REFERRED TO: Lynda Rasheed MD [address] [place] [address] [address] [facility] [address] As needed DISCHARGE MEDICATIONS: New Prescriptions No medications on file (Comment: Please note this report has been produced using speech recognition software and may contain errors related to that system including errors in grammar, punctuation, and spelling, as well as words and phrases that may be inappropriate. If there are any questions or concerns please feel freeto contact the dictating provider for clarification.) Catalino Waddell MD (electronically signed) Emergency Medicine Provider Catalino Waddell MD 03/19/23 1116 documented in this [facility]12-19-2023 Physician Emergency department Note* Catalino Waddell MD - 03/19/2023 10:13 AM EST EMERGENCY DEPARTMENT ENCOUNTER Pt Name: Maria De [...] His tetanus is up-to-date. He has normal movementsensation but is painful. He is right-handed. No [...] withdrawal, with unspecified complication (HCC) 10/02/2019 Alcoholism ([facility]/HCC) (HCC) Anxiety Arthritis Maria De Jesus Cerebral artery occlusion with cerebral infarction (HCC) Cerebrovascular disease Depression GERD (gastroesophageal reflux disease) Maria De Jesus Hypertension Insomnia SURGICAL HISTORY Past Surgical History: Procedure Laterality Date COLONOSCOPY 06/10/2020 EGD/Dr Madison/AMANDA CYST REMOVAL face EGD (HISTORICAL) 07/23/2022 Dr. Estrella-[facility] SMALL INTESTINE SURGERY UPPER GASTROINTESTINAL ENDOSCOPY 09/27/2021 [...] Depression Sister Maria De Jesus Hogan Other ([phone]) Sister Maria De Jesus Hogan agoraphobia Arthritis Sister Maria De Jesus Hogan Cancer Mother Maria De Jesus Hogan colon rectal cancer; dx after age 50 Other ([id number]) Mother Maria De Jesus Hogan alcoholism Alcohol abuse Mother Maria De Jesus Hogan Stroke Mother Maria De Jesus Hogan Other ([id number]) Father Maria De Jesus Hogan h/o rheumatic [...] 0 min Stress: Stress Concern Present (02/09/2023) [employer] [place] [employer] - Occupational Stress Questionnaire Feeling of Stress : Very much Social Connections: Moderately Isolated (02/09/2023) Social Connection and Isolation Panel [NHANES] Frequency of Communication with Friends and Family: More than three times a week Frequency of Social Gatherings with Friends and Family: More than three times a week Attends Taoist Services: Never Active Member of Clubs or [...] nailbed hematoma or laceration, capillary refill normal sensationmovement normal. Skin: General: Skin is warm and dry. Capillary Refill: Capillary refill takes less than 2 seconds. Neurological: Mental Status: He is alert. Psychiatric: Mood and Affect: Mood normal. DIAGNOSTIC RESULTS Procedures/EKG: EKG was reviewed by myself. [facility] (Per Emergency Physician): No acute third [...] PATIENT REFERRED TO: Lynda Rasheed MD [address] [facility] [address] As needed DISCHARGE MEDICATIONS: New Prescriptions No medications on file (Comment: Please note this report has been produced using speech recognition software and may contain errors related to that system including errors in grammar, punctuation, and spelling, as well as words and phrases that may be inappropriate. If there are any questions or concerns please feel freeto contact the dictating provider for clarification.) Catalino Waddell MD (electronically signed) Emergency Medicine Provider Catalino Waddell MD 03/19/23 1116 [facility] [id number] Hospital Discharge instructions* Discharge Instructions* Harjinder Darnell MD - 02/18/2023 7:59 AM EST Follow up with a dentist as soon as possible * Attachments The following attachments cannot be sent through Care Everywhere. * Tooth Abscess ED (Mongolian) documented in this [facility]11-20-2023 Emergency department Note* Radha Gaytan RN - 02/18/2023 7:55 AM EST Pt ambulatory to ED3 with c/o facial [...] warm and dry, no distress noted. +left sidedfacial swelling noted. * Harjinder Darnell MD - 02/18/2023 7:42 AM EST EMERGENCY DEPARTMENT ENCOUNTER Pt Name: Maria De [...] No injury. Not there yesterday. No fever. Nodrooling. No trouble swallowing. Has not been able [...] withdrawal, with unspecified complication (HCC) 10/02/2019 Alcoholism ([facility]/HCC) (HCC) Anxiety Arthritis Maria De Jesus Cerebral artery occlusion with cerebral infarction (HCC) Cerebrovascular disease Depression GERD (gastroesophageal reflux disease) Maria De Jesus Hypertension Insomnia SURGICAL HISTORY Past Surgical History: Procedure Laterality Date COLONOSCOPY 06/10/2020 EGD/Dr Madison/AMANDA CYST REMOVAL face EGD (HISTORICAL) 07/23/2022 Dr. Estrella-[facility] SMALL INTESTINE SURGERY UPPER GASTROINTESTINAL ENDOSCOPY 09/27/2021 [...] times daily as needed for mild pain (1-3)for up to 7 days. MELATONIN 5 MG [...] Depression Sister Maria De Jesus Hogan Other ([phone]) Sister Maria De Jesus Hogan agoraphobia Arthritis Sister Maria De Jesus Hogan Cancer Mother Maria De Jesus Hogan colon rectal cancer; dx after age 50 Other ([phone]) Mother Maria De Jesus Hogan alcoholism Alcohol abuse Mother Maria De Jesus Hogan Stroke Mother Maria De Jesus Hogan Other ([id number]) Father Maria De Jesus Hogan h/o rheumatic [...] 0 min Stress: Stress Concern Present (02/09/2023) [employer] [place] [employer] - Occupational Stress Questionnaire Feeling of Stress : Very much Social Connections: Moderately Isolated (02/09/2023) Social Connection and Isolation Panel [NHANES] Frequency of Communication with Friends and Family: More than three times a week Frequency of Social Gatherings with Friends and Family: More than three times a week Attends Taoist Services: Never Active Member of Clubs or [...] presentation includes injury dental abscess sinusitis. Our workupconsisted of ordering/reviewing history and physical exam which [...] care: No evidence of airway compromise so doesnot meet criteria for hospitalization FINAL IMPRESSION 1. Dental abscess DISPOSITION Discharge 02/18/2023 07:58:26 AM PATIENT REFERRED TO: Lynda Rasheed MD [address] [place] [address] [address] [facility] [id number] as previously scheduled DISCHARGE MEDICATIONS: New Prescriptions PENICILLIN V (VEETID) 250 MG TABLET Take 1 tablet (250 mg) by mouth in the morning and 1 tablet (250 mg) at noon and 1 tablet (250 mg) in the evening and 1 tablet (250 mg) before bedtime. Do all thisfor 7 days. (Comment: Please note this report has been produced using speech recognition software and may contain errors related to that system including errors in grammar, punctuation, and spelling, as well as words and phrases that may be inappropriate. If there are any questions or concerns please feel freeto contact the dictating provider for clarification.) Harjinder Darnell MD (electronically signed) Emergency Medicine Provider Harjinder Darnell MD 02/18/23 1009 documented in this [facility]11-20-2023 Emergency department Triage note* Radha Gaytan RN - 02/18/2023 7:55 AM EST Pt ambulatory to ED3 with c/o facial [...] warm and dry, no distress noted. +left sidedfacial swelling noted. [facility]11-20-2023 Physician Emergency department Note* Harjinder Darnell MD - 02/18/2023 7:42 AM EST EMERGENCY DEPARTMENT ENCOUNTER Pt Name: Maria De [...] No injury. Not there yesterday. No fever. Nodrooling. No trouble swallowing. Has not been able [...] CYST REMOVAL face EGD (HISTORICAL) 07/23/2022 Dr. Estrella[facility] SMALL INTESTINE SURGERY UPPER GASTROINTESTINAL ENDOSCOPY 09/27/2021 [...] times daily as needed for mild pain (1-3)for up to 7 days. MELATONIN 5 MG [...] Depression Sister Maria De Jesus Hogan Other ([id number]) Sister Maria De Jesus Hogan agoraphobia Arthritis Sister Maria De Jesus Hogan Cancer Mother Maria De Jesus Hogan colon rectal cancer; dx after age 50 Other ([id number]) Mother Maria De Jesus Hogan alcoholism Alcohol abuse Mother Maria De Jesus Hogan Stroke Mother Maria De Jesus Hogan Other ([phone]) Father Maria De Jesus Hogan h/o rheumatic [...] 0 min Stress: Stress Concern Present (02/09/2023) [employer] [place] [employer] - Occupational Stress Questionnaire Feeling of Stress : Very much Social Connections: Moderately Isolated (02/09/2023) Social Connection and Isolation Panel [NHANES] Frequency of Communication with Friends and Family: More than three times a week Frequency of Social Gatherings with Friends and Family: More than three times a week Attends Taoist Services: Never Active Member of Clubs or [...] presentation includes injury dental abscess sinusitis. Our workupconsisted of ordering/reviewing history and physical exam which [...] care: No evidence of airway compromise so doesnot meet criteria for hospitalization FINAL IMPRESSION 1. Dental abscess DISPOSITION Discharge 02/18/2023 07:58:26 AM PATIENT REFERRED TO: Lynda Rasheed MD [address] [place] [address] [address] [facility] [address] as previously scheduled DISCHARGE MEDICATIONS: New Prescriptions PENICILLIN V (VEETID) 250 MG TABLET Take 1 tablet (250 mg) by mouth in the morning and 1 tablet (250 mg) at noon and 1 tablet (250 mg) in the evening and 1 tablet (250 mg) before bedtime. Do all thisfor 7 days. (Comment: Please note this report has been produced using speech recognition software and may contain errors related to that system including errors in grammar, punctuation, and spelling, as well as words and phrases that may be inappropriate. If there are any questions or concerns please feel freeto contact the dictating provider for clarification.) Harjinder Darnell MD (electronically signed) Emergency Medicine Provider Harjinder Darnell MD 02/18/23 1009 [facility] [id number] Hospital Discharge instructions* Discharge Instructions* Harjinder Darnell MD - 02/17/2023 9:20 AM EST Follow-up with a dentist as soon as possible * Attachments The following attachments cannot be sent through Care Everywhere. * Dental Pain Discharge Instructions (Mongolian) documented in this [facility]11-19-2023 Emergency department Note* Harjinder Darnell MD - 02/17/2023 8:51 AM EST EMERGENCY DEPARTMENT ENCOUNTER Pt Name: Maria De [...] for drooling, sore throat, trouble swallowing and voicechange. Eyes: Negative for visual disturbance. Respiratory: Negative [...] CYST REMOVAL face EGD (HISTORICAL) 07/23/2022 Dr. Estrella-[facility] SMALL INTESTINE SURGERY UPPER GASTROINTESTINAL ENDOSCOPY 09/27/2021 [...] Depression Sister Maria De Jesus Hogan Other ([id number]) Sister Maria De Jesus Hogan agoraphobia Arthritis Sister Maria De Jesus Hogan Cancer Mother Maria De Jesus Hogan colon rectal cancer; dx after age 50 Other ([id number]) Mother Maria De Jesus Hogan alcoholism Alcohol abuse Mother Maria De Jesus Hogan Stroke Mother Maria De Jesus Hogan Other ([id number]) Father Maria De Jesus Hogan h/o rheumatic [...] 0 min Stress: Stress Concern Present (02/09/2023) [employer] [place] [employer] - Occupational Stress Questionnaire Feeling of Stress : Very much Social Connections: Moderately Isolated (02/09/2023) Social Connection and Isolation Panel [NHANES] Frequency of Communication with Friends and Family: More than three times a week Frequency of Social Gatherings with Friends and Family: More than three times a week Attends Taoist Services: Never Active Member of Clubs or [...] AM PATIENT REFERRED TO: Lynda Rasheed MD [address] [place] [address] [address] [facility] [id number] as previously scheduled DISCHARGE MEDICATIONS: New Prescriptions IBUPROFEN 600 MG TABLET Take 1 tablet (600 mg) by mouth 4 times daily as needed for mild pain (1-3)for up to 7 days. (Comment: Please note this report has been produced using speech recognition software and may contain errors related to that system including errors in grammar, punctuation, and spelling, as well as words and phrases that may be inappropriate. If there are any questions or concerns please feel freeto contact the dictating provider for clarification.) Harjinder Darnell MD (electronically signed) Emergency Medicine Provider Harjinder Darnell MD 02/17/23 1040 * Evelyn Wick RN - 02/17/2023 8:51 AM EST Patient to room 3 with c/o upper left dental pain that started yesterday. V/S obtained, call light within reach. documented in this [facility]11-19-2023 Emergency department Triage note* Evelyn Wick RN - 02/17/2023 8:51 AM EST Patient to room 3 with c/o upper left dental pain that started yesterday. V/S obtained, call light within reach. [facility] [id number] Physician Emergency department Note* Harjinder Darnell MD - 02/17/2023 8:51 AM EST EMERGENCY DEPARTMENT ENCOUNTER Pt Name: Maria De [...] for drooling, sore throat, trouble swallowing and voicechange. Eyes: Negative for visual disturbance. Respiratory: Negative [...] withdrawal, with unspecified complication (HCC) 10/02/2019 Alcoholism ([facility]/HCC) (HCC) Anxiety Arthritis Maria De Jesus Cerebral artery occlusion with cerebral infarction (HCC) Cerebrovascular disease Depression GERD (gastroesophageal reflux disease) Maria De Jesus Hypertension Insomnia SURGICAL HISTORY Past Surgical History: Procedure Laterality Date COLONOSCOPY 06/10/2020 EGD/Dr Madison/AMANDA CYST REMOVAL face EGD (HISTORICAL) 07/23/2022 Dr. Estrella-[facility] SMALL INTESTINE SURGERY UPPER GASTROINTESTINAL ENDOSCOPY 09/27/2021 [...] Depression Sister Maria De Jesus Hogan Other ([phone]) Sister Maria De Jesus Hogan agoraphobia Arthritis Sister Maria De Jesus Hogan Cancer Mother Maria De Jesus Hogan colon rectal cancer; dx after age 50 Other ([phone]) Mother Maria De Jesus Hogan alcoholism Alcohol abuse Mother Maria De Jesus Hogan Stroke Mother Maria De Jesus Hogan Other ([phone]) Father Maria De Jesus Hogan h/o rheumatic [...] 0 min Stress: Stress Concern Present (02/09/2023) [employer] [place] [employer] - Occupational Stress Questionnaire Feeling of Stress : Very much Social Connections: Moderately Isolated (02/09/2023) Social Connection and Isolation Panel [NHANES] Frequency of Communication with Friends and Family: More than three times a week Frequency of Social Gatherings with Friends and Family: More than three times a week Attends Taoist Services: Never Active Member of Clubs or [...] AM PATIENT REFERRED TO: Lynda Rasheed MD [address] [place] [address] [address] [facility] [address] as previously scheduled DISCHARGE MEDICATIONS: New Prescriptions IBUPROFEN 600 MG TABLET Take 1 tablet (600 mg) by mouth 4 times daily as needed for mild pain (1-3)for up to 7 days. (Comment: Please note this report has been produced using speech recognition software and may contain errors related to that system including errors in grammar, punctuation, and spelling, as well as words and phrases that may be inappropriate. If there are any questions or concerns please feel freeto contact the dictating provider for clarification.) Harjinder Darnell MD (electronically signed) Emergency Medicine Provider Harjinder Darnell MD 02/17/23 1040 [facility] [id number] Note* Care Coordination - BENNIE Solis - 02/11/2023 12:01 PM EST BENNIE informed the patient called his insurance rather than have his come pick him up from the hospital. Provide a ride picking patient up from hospital and taking them back home [facility] [id number] Note* Care Coordination - BENNIE Solis - 02/11/2023 12:01 PM EST BENNIE informed the patient called his insurance rather than have his come pick him up from the hospital. Provide a ride picking patient up from hospital and taking them back home [facility] [id number] Miscellaneous Notes* Care Coordination - BENNIE Solis - 02/11/2023 12:01 PM EST BENNIE informed the patient called his insurance rather than have his come pick him up from the hospital. Provide a ride picking patient up from hospital and taking them back home * Care Coordination - BENNIE Solis - 02/11/2023 11:08 AM EST MANAGER SITE saw patient to discuss aftercare plans and treatment post discharge. Patient declined assistance with aftercare appointments at current time. Patient discussed desire to restart MAT. MANAGER SITE noted concerns with MAT Patient's chart encourage patient to discuss this further with medical provider. Patient denied current SI/HI/AVH. Patient reported that their would be picking them up from the hospital and taking them back home. Patient denied needing anything further from MANAGER SITE at the time. MANAGER SITE informed patient's nurse about conversation. * Care Plan - Neftali Glass RN - 02/09/2023 3:10 AM EST Problem: Sensory Perceptual Alteration as Evidenced by Goal: Understands least restrictive measures Outcome: Progressing Goal: Free from restraint events Outcome: Progressing Problem: Ineffective Coping Goal: Identifies healthy coping skills Outcome: Progressing Problem: Potential for Substance Withdrawal Goal: Verbalizes signs/symptoms of withdrawal Outcome: Progressing Goal: Reports signs/symptoms of withdrawal Outcome: Progressing * Care Coordination - Eda Villa RN - 02/08/2023 7:00 PM EST [facility] RN in to see pt. Pt resting in bed with eyes closed, responds to verbal stimuli. Pt voices concern about vomiting blood and states that is why he came to the ER. I explained to pt connection between esophageal varices and alcohol use and pt states he has a history of this and had surgery approx6 months to 1 year ago for same thing. Pt states he was drinking very heavily at that point but then went through detox and was sober for 6 months. Pt was prescribed ReVia for alcohol abuse and felt this worked very well for him. Pt states his family members continued bringing alcohol into the homeand this is what led him to start drinking again. Pt states he has been drinking 10-11 natty daddy tall boys per day and enjoys drinking. He states he has more fun. However, due to health reasons, ptis interested in detox and restarting ReVia for alcohol use. Pt is also interested in attending OP IOP and connecting with a PRC from [facility]. Pt was provided with informational brochures on First Step, IOP, PRC, and Vivitrol. documented in this [facility]11-13-2023 History of Present illness Narrative* Stephanie Schmitt RN - 02/11/2023 11:56 AM EST Denies si/hi. .discussed risk of using any etoh, street drugs, meds not prescribed or as. Discussed increased risk of od or if uses following detox, stated understood. Discussed red book, meetings, tool box with patient, info given. Discussed after care info, was included in discharge instructions. Discussed discharge, stated understood and signed. 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 He called himself. Discharged from unit at 1201. * Lizz Matrinez RN - 02/11/2023 5:26 AM EST This nurse to care for pt throughout shift. Pt calm, cooperative, and friendly. Seen interacting with staff and peers appropriately. A/Ox4. Steady gait. Performs ADLs independently and w/o difficulty. Skin P/W/D. + for mild tremors. Denies SI/HI and AH/VH. Medication compliant. PRN medication administered when requested. Pt voices no complaints at this time. Pt states hopes of discharge today R/Temployment concerns. Pt educated to voice such concerns with rounding provider. Pt verbalized understanding. Pt encouraged to notify staff of any changes/needs that arise. Pt verbalized understanding. * JUAN Hill NP - 02/10/2023 8:48 AM EST Addiction Medicine Progress Note Patient: Maria De [...] medication overnight. Patient did participated in group andinteracted with peers. Patient states that he wants [...] PRN medications: acetaminophen, albuterol, aluminum & magnesium hydroxide- simethicone, hydrOXYzine pamoate, loperamide, magnesium hydroxide, nicotine polacrilex, [...] - labs/tests/tasks to review: LFT Recovery plan: MANAGER SITE plan for further addiction treatment at undecided JUAN Rothman NP Addiction Medicine 02/10/2023 at 2:54 PM Note: Narrative portions of note written using Scanadu dictation software. Efforts are made to dictate clearly and proofread but errors in dictation still may occur. Please reach out to author with any clarifying questions. * Ruchi Martinez - 02/10/2023 7:11 AM EST Nutrition rescreen completed. Chart reviewed. 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 * Lizz Martinez RN - 02/10/2023 5:47 AM EST This nurse to care for patient throughout [...] staff of any changes/needs that arise. Pt verbalizedunderstanding. documented in this [facility]11-13-2023 Hospital Discharge instructions* Discharge Instructions* Paipto Hood MD - 02/11/2023 11:19 AM EST Images from the original note were not included. [facility] PROGRAMS __ Addiction Medicine Intensive Outpatient Program [place] ([facility]): [phone] [place]: [phone] [place]: [phone] Behavioral Health Intensive Outpatient Program [place] ([facility]): [phone] [place]: [phone] First Step [place] ([facility]): [phone] [place]: [phone] Partial Hospitalization Program [place] ([facility]): [phone] [facility] [place] ([facility]): [phone] [facility] [place] ([facility]): [phone] Alcoholics Anonymous Meetings [email or web address] [facility] [address] [place] [address], [address], [place] [address] documented in this [facility]11-13-2023 Note* Care Coordination - BENNIE Solis - 02/11/2023 11:08 AM EST MANAGER SITE saw patient to discuss aftercare plans and treatment post discharge. Patient declined assistance with aftercare appointments at current time. Patient discussed desire to restart MAT. MANAGER SITE noted concerns with MAT Patient's chart encourage patient to discuss this further with medical provider. Patient denied current SI/HI/AVH. Patient reported that their would be picking them up from the hospital and taking them back home. Patient denied needing anything further from MANAGER SITE at the time. MANAGER SITE informed patient's nurse about conversation. [facility] HospitalBiqhnm19-37-2838 Note* Care Coordination - BENNIE Solis - 02/11/2023 11:08 AM EST MANAGER SITE saw patient to discuss aftercare plans and treatment post discharge. Patient declined assistance with aftercare appointments at current time. Patient discussed desire to restart MAT. MANAGER SITE noted concerns with MAT Patient's chart encourage patient to discuss this further with medical provider. Patient denied current SI/HI/AVH. Patient reported that their would be picking them up from the hospital and taking them back home. Patient denied needing anything further from MANAGER SITE at the time. MANAGER SITE informed patient's nurse about conversation. [facility] HospitalLyrzmt88-05-0744 Nurse Note* Lauren Iryb RN - 02/10/2023 2:30 PM EST Patient up and visible on the unit. Patient perseverating on discharge and nicotine lozenges, watches the clock and says Its been 2 hours I need my cigarette. Patient is compliant with medications and treatment offered. Patient denies SI/HI/AVH thus far. Patient appetite, hygiene, and sleep adequate. Patient independent with ADLs and ambulation. Patient socializes with peers, up in the day roomwatching television and conversing. Patient has no c/o pain and no behaviors noted thus far. Will continue to monitor for safety. [facility] [id number] Nurse Note* Lauren Irby RN - 02/10/2023 2:30 PM EST Patient up and visible on the unit. Patient perseverating on discharge and nicotine lozenges, watches the clock and says Its been 2 hours I need my cigarette. Patient is compliant with medications and treatment offered. Patient denies SI/HI/AVH thus far. Patient appetite, hygiene, and sleep adequate. Patient independent with ADLs and ambulation. Patient socializes with peers, up in the day roomwatching television and conversing. Patient has no c/o pain and no behaviors noted thus far. Will continue to monitor for safety. * Lauren Irby RN - 02/09/2023 11:26 AM EST Patient seclusive to room this shift. Patient compliant with medications and treatment offered. Patient denies SI/HI/AVH thus far. Patient appetite, hygiene, and sleep adequate. Patient independent with ADLs and ambulation. Patient encouraged to approach staff with any concerns or needs. Will continue to monitor for safety. * Neftali Glass RN - 02/09/2023 12:10 AM EST Patient arrived to unit via stretcher escorted by protective services and EMT's. Patient Ambulated from stretcher at nursing station to room 413 independently. Gait steady. A & O x 4. No complaints of pain. Patient signed in. Oriented to unit and room. Patient called from unit phone. PRN trazodone 100 mg PO administered for sleep. documented in this [facility]11-11-2023 Nurse Note* Lauren Irby RN - 02/09/2023 11:26 AM EST Patient seclusive to room this shift. Patient compliant with medications and treatment offered. Patient denies SI/HI/AVH thus far. Patient appetite, hygiene, and sleep adequate. Patient independent with ADLs and ambulation. Patient encouraged to approach staff with any concerns or needs. Will continue to monitor for safety. [facility] HospitalHcmrip96-21-0850 History and physical note* Tiki Ponce APRN - JUSTEN - 02/09/2023 8:42 AM EST Addiction Medicine [facility] Detox Unit H&P Patient: Maria De [...] last drink was just prior to ED arrival.He vomits daily. Today had some blood-streaked vomiting. [...] and a severe alcohol use disorder. He iswell known to this Addiction Medicine Team. Patient has previous history of detox occurring on 10/25/2021, 02/15/2021 (left AMA), 06/09/20, 10/01/19, 08/31/19 (left AMA), 2016 (left AMA), and 2014 (left AMA), 09/10/2022. Patient was discharged with aftercare plans of MAT-Vivitrol. Patient reports going tohis appointment in September and maintaining sobriety an additional 1 month later. Patient reports relapsing shortly after that appointment. Patient report to drinking 7-8 24 ounce beers daily. Last drinkwas 02/08/2023. Maria De Jesus Hogan started drinking [...] residential treatment. He has a history of IOPat [facility] in [place]. He has a history of a psychiatric [...] 0 min Stress: Stress Concern Present (02/09/2023) [employer] [place] [employer] - Occupational Stress Questionnaire Feeling of Stress : Very much Social Connections: Moderately Isolated (02/09/2023) Social Connection and Isolation Panel [NHANES] Frequency of Communication with Friends and Family: More than three times a week Frequency of Social Gatherings with Friends and Family: More than three times a week Attends Taoist Services: Never Active Member of Clubs or [...] CYST REMOVAL face EGD (HISTORICAL) 07/23/2022 Dr. Estrella-[facility] SMALL INTESTINE SURGERY UPPER GASTROINTESTINAL ENDOSCOPY 09/27/2021 normal WISDOM TOOTH EXTRACTION Family History Problem Relation Name Age of Onset Depression Sister Maria De Jesus Hogan Other ([id number]) Sister Maria De Jesus Hogan agoraphobia Arthritis Sister Maria De Jesus Hogan Cancer Mother Maria De Jesus Hogan colon rectal cancer; dx after age 50 Other ([id number]) Mother Maria De Jesus Hogan alcoholism Alcohol abuse Mother Maria De Jesus Hogan Stroke Mother Maria De Jesus Hogan Other ([id number]) Father Maria De Jesus Hogan h/o rheumatic [...] for sleep disturbance. Negative for dysphoric mood, hallucinationsand suicidal ideas. The patient is nervous/anxious. All [...] PRN medications: acetaminophen, albuterol, aluminum & magnesium hydroxide- simethicone, hydrOXYzine pamoate, loperamide, magnesium hydroxide, ondansetron ODT [...] participate in all unit activities. Recovery plan: MANAGER SITE to assist with aftercare treatment options as patient stabilizes JUAN Rothman NP Addiction Medicine 02/09/2023 at 3:21 PM Note: Narrative portions of note written using Scanadu dictation software. Efforts are made to dictate clearly and proofread but errors in dictation still may occur. Please reach out to author with any clarifying questions. Associated attestation - Jonatan Mckeon MD - 02/10/2023 10:18 AM EST I have reviewed the documented history, ROS, physical exam, and decision making and agree. [facility] HospitalEhfqkf82-13-2067 History and physical note* JUAN Hill NP - 02/09/2023 8:42 AM EST Addiction Medicine [facility] Detox Unit H&P Patient: Maria De [...] last drink was just prior to ED arrival.He vomits daily. Today had some blood-streaked vomiting. [...] and a severe alcohol use disorder. He iswell known to this Addiction Medicine Team. Patient has previous history of detox occurring on 10/25/2021, 02/15/2021 (left AMA), 06/09/20, 10/01/19, 08/31/19 (left AMA), 2016 (left AMA), and 2014 (left AMA), 09/10/2022. Patient was discharged with aftercare plans of MAT-Vivitrol. Patient reports going tohis appointment in September and maintaining sobriety an additional 1 month later. Patient reports relapsing shortly after that appointment. Patient report to drinking 7-8 24 ounce beers daily. Last drinkwas 02/08/2023. Maria De Jesus Hogan started drinking [...] residential treatment. He has a history of IOPat [facility] in [place]. He has a history of a psychiatric [...] 0 min Stress: Stress Concern Present (02/09/2023) [employer] [place] [employer] - Occupational Stress Questionnaire Feeling of Stress : Very much Social Connections: Moderately Isolated (02/09/2023) Social Connection and Isolation Panel [NHANES] Frequency of Communication with Friends and Family: More than three times a week Frequency of Social Gatherings with Friends and Family: More than three times a week Attends Taoist Services: Never Active Member of Clubs or [...] CYST REMOVAL face EGD (HISTORICAL) 07/23/2022 Dr. Estrella-[facility] SMALL INTESTINE SURGERY UPPER GASTROINTESTINAL ENDOSCOPY 09/27/2021 normal WISDOM TOOTH EXTRACTION Family History Problem Relation Name Age of Onset Depression Sister Maria De Jesus Hogan Other ([id number]) Sister Maria De Jesus Hogan agoraphobia Arthritis Sister Maria De Jesus Hogan Cancer Mother Maria De Jesus Hogan colon rectal cancer; dx after age 50 Other ([id number]) Mother Maria De Jesus Hogan alcoholism Alcohol abuse Mother Maria De Jesus Hogan Stroke Mother Maria De Jesus Hogan Other ([id number]) Father Maria De Jesus Hogan h/o rheumatic [...] for sleep disturbance. Negative for dysphoric mood, hallucinationsand suicidal ideas. The patient is nervous/anxious. All [...] PRN medications: acetaminophen, albuterol, aluminum & magnesium hydroxide- simethicone, hydrOXYzine pamoate, loperamide, magnesium hydroxide, ondansetron ODT [...] participate in all unit activities. Recovery plan: MANAGER SITE to assist with aftercare treatment options as patient stabilizes Tiki Ponce APRN - STOREROOM CLERK Addiction Medicine 02/09/2023 at 3:21 PM Note: Narrative portions of note written using Scanadu dictation software. Efforts are made to dictate clearly and proofread but errors in dictation still may occur. Please reach out to author with any clarifying questions. Associated attestation - Jonatan Mcekon MD - 02/10/2023 10:18 AM EST I have reviewed the documented history, ROS, physical exam, and decision making and agree. documented in this [facility]11-11-2023 Plan of care note* Care Plan - Neftali Glass RN - 02/09/2023 3:10 AM EST Problem: Sensory Perceptual Alteration as Evidenced by Goal: Understands least restrictive measures Outcome: Progressing Goal: Free from restraint events Outcome: Progressing Problem: Ineffective Coping Goal: Identifies healthy coping skills Outcome: Progressing Problem: Potential for Substance Withdrawal Goal: Verbalizes signs/symptoms of withdrawal Outcome: Progressing Goal: Reports signs/symptoms of withdrawal Outcome: Progressing [facility] HospitalNfrzya15-94-1777 Nurse Note* Neftali Glass RN - 02/09/2023 12:10 AM EST Patient arrived to unit via stretcher escorted by protective services and EMT's. Patient Ambulated from stretcher at nursing station to room 413 independently. Gait steady. A & O x 4. No complaints of pain. Patient signed in. Oriented to unit and room. Patient called from unit phone. PRN trazodone 100 mg PO administered for sleep. [id number] Emergency department Note* Kassie Vargas RN - 02/08/2023 10:59 PM EST Spoke with 4E about patient departure and provider notification. Kassie Vargas RN 02/08/232302 [address]Bdpzmw04-54-1812 Emergency department Note* Kassie Vargas RN - 02/08/2023 10:59 PM EST Spoke with 4E about patient departure and provider notification. Kassie Vargas RN 02/08/23 736 * Kassie Vargas RN - 02/08/2023 10:47 PM EST Protective services at bedside for wanding. Kassie Vargas RN 02/08/23 0629 * Kassie Vargas RN - 02/08/2023 10:47 PM EST [facility] arrived. Kassie Vargas RN 02/08/23 3959 * Kassie Vargas RN - 02/08/2023 8:35 PM EST Protective services at bedside to do belongings check and wanding. Patient still has procession of pillow and cellular device. Patient verbalized understanding of phone and pillow will be secured before departure of unit. Kassie Vargas RN 02/08/232035 * Kassie Vargas RN - 02/08/2023 8:28 PM EST Patient ambulatory to the restroom with steady gait. Kassie Vargas RN 02/08/232033 * Kassie Vargas RN - 02/08/2023 7:47 PM EST Snack and beverage provided to patient. Kassie Vargas RN 02/08/232016 * Jen Nunez RN - 02/08/2023 7:36 PM EST Report called to 4E Jen Nunez RN 02/08/231935 * Anusha Kothari MD - 02/08/2023 4:28 PM EST Emergency Department Encounter Pt Name: Maria De [...] last drink was just prior to ED arrival.He vomits daily. Today had some blood-streaked vomiting. [...] patch (1 patch TransDERmal Medication Applied 02/08/23 0982) Followed by nicotine (Nicoderm, Step 2) 14 [...] Anusha Kothari MD 02/08/231827 documented in this [address]10-2023 Emergency department Note* Kassie Vargas RN - 02/08/2023 10:47 PM EST Protective services at bedside for wanding. Kassie Vargas RN 02/08/232247 [id number] Emergency department Note* Kassie Vargas RN - 02/08/2023 10:47 PM EST [facility] arrived. Kassie Vargas RN 02/08/232246 [id number] Emergency department Note* Kassie Vargas RN - 02/08/2023 8:35 PM EST Protective services at bedside to do belongings check and wanding. Patient still has procession of pillow and cellular device. Patient verbalized understanding of phone and pillow will be secured before departure of unit. Kassie Vargas RN 02/08/232035 [address]Agayye73-51-0252 Emergency department Note* Kassie Vargas RN - 02/08/2023 8:28 PM EST Patient ambulatory to the restroom with steady gait. Kassie Vargas RN 02/08/232033 [place] [address]-10-2023 Emergency department Note* Kassie Vargas RN - 02/08/2023 7:47 PM EST Snack and beverage provided to patient. Kassie Vargas RN 02/08/232016 [place] [id number] Emergency department Note* Jen Nunez RN - 02/08/2023 7:36 PM EST Report called to 4E Jen Nunez RN 02/08/231935 [place] [address]-10-2023 Note* Care Coordination - Eda Villa RN - 02/08/2023 7:00 PM EST ACC RN in to see pt. Pt resting in bed with eyes closed, responds to verbal stimuli. Pt voices concern about vomiting blood and states that is why he came to the ER. I explained to pt connection between esophageal varices and alcohol use and pt states he has a history of this and had surgery approx6 months to 1 year ago for same thing. Pt states he was drinking very heavily at that point but then went through detox and was sober for 6 months. Pt was prescribed ReVia for alcohol abuse and felt this worked very well for him. Pt states his family members continued bringing alcohol into the homeand this is what led him to start drinking again. Pt states he has been drinking 10-11 natty daddy tall boys per day and enjoys drinking. He states he has more fun. However, due to health reasons, ptis interested in detox and restarting ReVia for alcohol use. Pt is also interested in attending OP IOP and connecting with a PRC from [facility]. Pt was provided with informational brochures on First Step, IOP, PRC, and Vivitrol. [place] [address]-10-2023 Note* Care Coordination - Eda Villa RN - 02/08/2023 7:00 PM EST ACC RN in to see pt. Pt resting in bed with eyes closed, responds to verbal stimuli. Pt voices concern about vomiting blood and states that is why he came to the ER. I explained to pt connection between esophageal varices and alcohol use and pt states he has a history of this and had surgery approx6 months to 1 year ago for same thing. Pt states he was drinking very heavily at that point but then went through detox and was sober for 6 months. Pt was prescribed ReVia for alcohol abuse and felt this worked very well for him. Pt states his family members continued bringing alcohol into the homeand this is what led him to start drinking again. Pt states he has been drinking 10-11 natty daddy tall boys per day and enjoys drinking. He states he has more fun. However, due to health reasons, ptis interested in detox and restarting ReVia for alcohol use. Pt is also interested in attending OP IOP and connecting with a PRC from [facility]. Pt was provided with informational brochures on First Step, IOP, PRC, and Vivitrol. [facility] HospitalJdaopm42-83-6603 NoteNOTE: This result is for medical treatment only. Analysis performed using non-forensic procedures. [facility] HospitalUozjpb22-96-5663 Physician Emergency department Note* Anusha Kothari MD - 02/08/2023 4:28 PM EST Emergency Department Encounter Pt Name: Maria De [...] last drink was just prior to ED arrival.He vomits daily. Today had some blood-streaked vomiting. [...] MD Emergency Medicine Anusha Kothari MD 02/08/231827 [facility] [employer] Work Phone: 1(376) 164-164310-30-2023 Telephone encounter Note* Telephone Encounter - Kristina Fan MA - 01/28/2023 2:27 PM EDT Last OV:12/26/22 Scheduled:04/03/23 [facility] HospitalJripkr63-82-4150 Miscellaneous Notes* Telephone Encounter - Kristina Fan MA - 01/28/2023 2:27 PM EDT Last OV:12/26/22 Scheduled:04/03/23 documented in this [facility]SNew[facility] HospitalNhdtrg15-14-5358 History of Present illness Narrative* Lynda Rasheed MD - 12/26/2022 8:20 AM EDT Images from the original note were not included. [facility] [address] [place] [address] [address] [facility] [address] Dept: [phone] Dept Loc: [phone] Reason for Visit: Follow-up Assessment and Plan 1. Screening for colon cancer - [facility] Surgery - Sotero Madsen MD 2. 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 He is to continue Protonix. 3. Psoriasiform seborrheic dermatitis is a chronic stable issue continue Dovonex. 4. Alcohol use disorder, severe (HCC) patient currently sees the psychiatry alcohol addiction program through [facility]. He is getting medication through them. [...] effects of smoking encouraged to stop smoking patienton nicotine patch. current treatment plan is effective, [...] currently doing well in this aspect. Seeing [facility] addiction program. Currently on thiamine multivitamin as well as treatment he states through with addiction program. Patient also hasa history of psoriasis currently on Dovonex doing [...] mg) into the shoulder, thigh, or buttocks every28 (twenty-eight) days for 3 doses. Do not [...] CYST REMOVAL face EGD (HISTORICAL) 07/23/2022 Dr. Estrella[facility] SMALL INTESTINE SURGERY UPPER GASTROINTESTINAL ENDOSCOPY 09/27/2021 normal WISDOM TOOTH EXTRACTION Family History Problem Relation Name Age of Onset Depression Sister Maria De Jesus Hogan Other ([id number]) Sister Maria De Jesus Hogan agoraphobia Arthritis Sister Maria De Jesus Hogan Cancer Mother Maria De Jesus Hogan colon rectal cancer; dx after age 50 Other ([id number]) Mother Maria De Jesus Hogan alcoholism Alcohol abuse Mother Maria De Jesus Hogan Stroke Mother Maria De Jesus Hogan Other ([id number]) Father Maria De Jesus Hogan h/o rheumatic [...] by Katrina Rasheed MD documented in this [facility]09-11-2023 Telephone encounter Note* Telephone Encounter - Kristina Fan MA - 12/10/2022 11:11 AM EDT Last OV:09.25.22 Scheduled:12/26/22 [facility] HospitalJofwrj86-39-6998 Miscellaneous Notes* Telephone Encounter - Kristina Fan MA - 12/10/2022 11:11 AM EDT Last OV:09.25.22 Scheduled:12/26/22 documented in this [facility]07-11-2023 Miscellaneous Notes* Addendum Note - Papito Hood MD - 10/09/2022 9:00 AM EDTAddended by: PAPITO HOOD on: 10/09/2022 10:00 AM Modules accepted: Orders documented in this [facility]07-11-2023 Note* Addendum Note - Papito Hood MD - 10/09/2022 9:00 AM EDTAddended by: PAPITO HOOD on: 10/09/2022 10:00 AM Modules accepted: Orders [facility] [id number] Note* Addendum Note - Papito Hood MD - 10/09/2022 9:00 AM EDTAddended by: PAPITO HOOD on: 10/09/2022 10:00 AM Modules accepted: Orders [facility] HospitalHqbizq50-74-2213 Telephone encounter Note* Telephone Encounter - Lynda Rasheed MD - 10/01/2022 9:05 AM EDT 1. CMP indicates sugar is elevated. I recommend an A1c order for this in the chart #2 patient's blood counts are normal but his MCV value which is the shape of a blood cell is abnormal I would like to go ahead and order a B12 and iron. This is also in the chart [facility] HospitalClhusn67-10-7622 Miscellaneous Notes* Telephone Encounter - Lynda Rasheed MD - 10/01/2022 9:05 AM EDT 1. CMP indicates sugar is elevated. I recommend an A1c order for this in the chart #2 patient's blood counts are normal but his MCV value which is the shape of a blood cell is abnormal I would like to go ahead and order a B12 and iron. This is also in the chart documented in this encounterSNewark [id number] History of Present illness Narrative* Lynda Rasheed MD - 09/25/2022 8:20 AM EDT Images from the original note were not included. [facility] [address] [place] [address] Dept: [phone] Dept Loc: [phone] Reason for Visit: Follow-up (8 week, pt [...] to make sure there decreasing this is mostlikely to his alcohol. A CT abdomen showed fatty liver otherwise no acute masses. - pantoprazole (ProtoNix) 40 MG EC tablet; Take 1 tablet (40 mg) by mouth every morning (before breakfast)., Starting Sat09/25/2022, Normal - CBC auto differential - Comprehensive metabolic panel - Hepatitis panel, acute 3. Psoriasis patient also to follow-up with nurse school - calcipotriene (Dovonex) 0.005 % cream; Apply topically 2 times daily., Starting Sat09/25/2022, Normal 4. Screening for colon cancer - [facility] Surgery - Sotero Madsen MD 5 alcohol usage. Patient currently was in detox for 5 days. He states that he is doing much better he is on Vivitrol he has an upcoming appointment with the [facility]ry detox. We will continue to follow-up [...] problems recently he was at detox at [facility]. He states he has not been drinking since then. He is currently on Vivitrol. He sees a specialist for this. He also has a history of shoulder and back pain. He and I discussed physical therapy at this like he would like to hold off. He does take Neurontin for this at times when the pain severe. Tammy while admitted had elevated liver enzymes. He [...] (100 mg) by mouth daily. Do not startbefore September 15, 2022. 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 Estrella[facility] SMALL INTESTINE SURGERY UPPER GASTROINTESTINAL ENDOSCOPY 09/27/2021 normal WISDOM TOOTH EXTRACTION Family History Problem Relation Name Age of Onset Depression Sister Maria De Jesus Hogan Other ([id number]) Sister Maria De Jesus Hogan agoraphobia Arthritis Sister Maria De Jesus Hogan Cancer Mother Maria De Jesus Hogan colon rectal cancer; dx after age 50 Other ([id number]) Mother Maria De Jesus Hogan alcoholism Alcohol abuse Mother Maria De Jesus Hogan Stroke Mother Maria De Jesus Hogan Other ([id number]) Father Maria De Jesus Hogan h/o rheumatic [...] by Katrina Rasheed MD documented in this [place] [id number] Telephone encounter Note* Telephone Encounter - Kristina Fan MA - 09/24/2022 9:44 AM EDT Last seen:08/01/22 Scheduled:09/25/22 [address]Rusnri82-73-2395 Miscellaneous Notes* Telephone Encounter - Kristina Fan MA - 09/24/2022 9:44 AM EDT Last seen:08/01/22 Scheduled:09/25/22 documented in this [address]20-2023 Telephone encounter Note* Telephone Encounter - Kristina Fan MA - 09/18/2022 8:04 AM EDT Last seen:08/01/22 Scheduled:09/25/22 [address]Ypghka03-23-6883 Miscellaneous Notes* Telephone Encounter - Kristina Fan MA - 09/18/2022 8:04 AM EDT Last seen:08/01/22 Scheduled:09/25/22 documented in this [place] [id number] History of Present illness Narrative* Lauren Irby RN - 09/14/2022 12:26 PM EDT Patient discharged home at 12:15pm. Personal belongings, prescriptions, and follow up appointments given. Discharge paperwork given and patient states he ching no questions at this time. Patient denies SI/HI/AVH upon leaving. Patient aware of increased risk of od with this visit. Patient left the unit ambulatory and was picked up by family. * JUAN Delgado CNP - 09/14/2022 11:29 AM EDT Addiction Unit Progress Note wednesday September 14, [...] discharge order. Scheduled for OUTPT assessment at [facility] on September 19; [employer] will schedule leny't for [facility] physician. Scripts: Thiamine; Nicotine Patch/susan Robyn Edmond APRN DNP * Lauren Irby RN - 09/14/2022 11:17 AM EDT Patient up and visible on the unit. Patient attends select meetings and interacts with select peers. Appetite, hygiene, and sleep good. No adverse effects noted from injection this am. Patient eager to be discharged home. Patient has no c/o SI/HI/AVH at this time. No behaviors noted. Will continue to monitor for safety. * Lauren Irby RN - 09/14/2022 9:05 AM EDT Patient received Vivitrol education this am. Patient understands and stated he has no questions at this time. Patient administered injection to R hip at 9:00am. Patient tolerated well. Patient given info packet, bracelet, tags, and card for home. Patient aware of increased risks of od if he consumes. Will continue to monitor for any side effects. * Corinne Navarrete RN - 09/14/2022 3:49 AM EDT Pt up independently. Social with peers and staff. Pt compliant with medication and cooperative withnursing care. Denies SI/HI/AVH. Pt c/o nausea at start of shift. PRN Zofran given. Effective. PRN albuterol given. PRN Trazodone given per pt request for sleep aid. Pt observed sleeping throughout the night. Pt encouraged to make needs known to staff. Safety checks maintained. * Lauren Irby RN - 09/13/2022 1:55 PM EDT Patient up and visible on the unit. Patient social, interacts with peers, walks the lyn. Patient anxious for discharge, states he is going tomorrow no matter what. Patient compliant with medications and treatment offered. Patient denies SI/HI/AVH thus far. Patient appetite, hygiene, and sleep adequate. Patient only c/o of pain is due to tooth pain, ibuprofen effective. Patient attends select me etings when offered and is an active participant. No behaviors noted. Will continue to monitor for safety. * Lauren Irby RN - 09/13/2022 1:22 PM EDT Administered PRN ibuprofen for tooth pain. Will continue tot monitor medication effectiveness. * Tiki Ponce APRN - STOREROOM CLERK - 09/13/2022 8:24 AM EDT Addiction Medicine Progress Note Patient: Maria De [...] - labs/tests/tasks to review: none Recovery plan: MANAGER SITE plan for further addiction treatment at [facility] and [facility] with Dr. Jennifer Ponce APRN - STOREROOM CLERK Addiction Medicine 09/13/2022 at 12:52 PM Note: Narrative portions of note written using Scan[employer] dictation software. Efforts are made to dictate clearly and proofread but errors in dictation still may occur. Please reach out to author with any clarifying questions. * Corinne Navarrete RN - 09/13/2022 4:39 AM EDT Pt up independently. Steady gait. Social with peers in group room. Reports napping most of the day.Pt compliant with medication and cooperative with nursing care. Denies SI/HI/AVH. Improved tremors.PRN Trazodone given per pt request for sleep aid. Pt encouraged to make needs known to staff. Safety checks maintained. Pt observed sleeping well throughout the night. * Stephanie Schmitt RN - 09/12/2022 4:42 PM EDT Up and social. Attended meetings. Ambulates lyn way. Gait steady. Cooperative and pleasant. States much better today. Appetite good. * Mojgan Blum RD - 09/12/2022 4:39 PM EDT Nutrition Assessment Type and Reason for Visit: Initial, Positive Nutrition Screen (Poor intake) Nutrition Recommendations/Plan: Will assign level 1 referring to dietary director to monitor. Malnutrition Assessment: Malnutrition Status: No [...] loss Fluid Accumulation: No significant fluid accumulation Application Designer Strength: Not Performed Nutrition Assessment: Per chart: 09/11: said he didn't tolerate po, 09/12 100% of bfst. consumed. 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 he skipped meals for the last 2 weeks, consumed 100% of Lunch, declines supplemental foods Estimated Daily Nutrient Needs: Energy Requirements Based On: Kcal/kg Weight Used for Energy Requirements: [place] Weight for Energy Calculation (kg): 75 kg Total Energy Requirements (kcals/day): 1875 - 2250 kcals Weight Used for Protein Requirements: [place] Weight in Kg Used for Protein Requirements: 75 kg Estimated Total Protein (g/day): 60 - 75 gms protein Estimated Daily Total Fluid (ml/day): 1875 - 2250 mls Nutrition Related Findings: weight loss AGRONOMY ADVISOR, ETOH abuse Wound Type: None Current Nutrition Therapies: Adult diet Regular Current Oral Intake Average Meal Intake: 76-100% Average Supplements Intake: None Ordered Additional Calorie Sources Additional Calorie Sources: AGRONOMY ADVISOR 7 - 9 tall beers/day Anthropometric Measures: Height: 177.8 cm (5' 10) Current Body Weight: 90.7 kg (200 lb) Weight Source: Not Specified Admission Body Weight: 90.7 kg (200 lb) Usual Body Weight: 95.3 kg (210 lb) ([facility] 06/07/21) % Weight Change (Calculated): -4.8 [place] Body Weight (lbs) (Calculated): 166 lbs [place] Body Weight (Kg) (Calculated): 75 kg % [place] Body Weight (Calculated): 120.5 % BMI (kg/m2) [...] (will assign level 1 referring to dietary director to monitor) Plan of Care discussed with: pt. Goals: Goals: PO intake 75% or greater Nutrition Monitoring and Evaluation: Behavioral-Environmental Outcomes: None Identified Food/Nutrient Intake Outcomes: None Identified Physical Signs/Symptoms Outcomes: Hemodynamic Status, GI Status, Weight, Nutrition Focused PhysicalFindings, Meal Time Behavior, Skin, Fluid Status or Edema Discharge Planning: Assist with food insecurity, Continue current diet Mojgan Blum RD Contact: via CCTV Wireless chat or office *[id number] * JUAN Delgado CNP - 09/12/2022 3:00 PM EDT Addiction Unit Progress Note SatSeptember 12, 2022 [...] treatment & 12 Step program Robyn Edmond APRN, DNP * Stephanie Schmitt RN - 09/12/2022 8:19 AM EDT Up and steady. Up off bed without using hands. Up and ambulating halls, gait steady. Able to get own water. Cooperative and pleasant. Tremors settled. 100% breakfast consumed. Agreed to go to one meeting today and social some. * Ruchi Martinez - 09/12/2022 7:05 AM EDT POOR INTAKE Nutrition rescreen completed. Patient referred to the Dietitian. * Stephanie Schmitt RN - 09/11/2022 5:00 PM EDT Withdrawn to room sleeping most of shift. Reports diarrhea improving. Diarrhea x 1 this shift. Cooperative with staff. Appetite improving. Slept much of shift. * Corinne Navarrete RN - 09/11/2022 5:20 AM EDT BP elevated this morning. Pt slightly tachycardic. Pt tremulous and anxious. Dr. Rodriguez notified viasecure chat. PRN Ativan 1 mg PO given for CIWA 8. Will continue to monitor. 0656 CIWA 5 on reassessment. No signs of distress or discomfort. Bed alarm on for safety. Call light in reach. * Corinne Navarrete RN - 09/11/2022 2:54 AM EDT PRN Vistaril given for anxiety at 0222. Fan provided for comfort. Bed alarm on for safety. Call light in reach. Pt encouraged to call staff for assistance when ambulating. * Corinne Navarrete RN - 09/11/2022 1:30 AM EDT Pt arrived to from [facility] ED at 1939 via wheelchair. Skin [...] Will continue to monitor. documented in this [facility]06-16-2023 Note* Care Coordination - BENNIE Solis - 09/14/2022 11:33 AM EDT MANAGER SITE saw patient to discuss aftercare plans and treatment post discharge. Patient was reminded aboutfollow-up appointment with Lai OROZCO on 09/19/2022 at 8:30 AM. Patient also has MAT follow-up with Dr. Hood on 10/09/2022 at 9 AM for Vivitrol. All information included in patient's discharge paperwork.. Patient denied current SI/HI/AVH. Patient reported that their would be picking them up from the hospital and taking them back home. Patient denied needing anything further from [facility] at the time. BENNIE informed patient's nurse about conversation. Electronically signed by BENNIE Solison 09/14/2022 at 11:33 AM [facility] HospitalMfawdn80-76-0086 Note* Care Coordination - BENNIE Solis - 09/14/2022 11:33 AM EDT MANAGER SITE saw patient to discuss aftercare plans and treatment post discharge. Patient was reminded aboutfollow-up appointment with Lai OROZCO on 09/19/2022 at 8:30 AM. Patient also has MAT follow-up with Dr. Hood on 10/09/2022 at 9 AM for Vivitrol. All information included in patient's discharge paperwork.. Patient denied current SI/HI/AVH. Patient reported that their would be picking them up from the hospital and taking them back home. Patient denied needing anything further from MANAGER SITE at the time. MANAGER SITE informed patient's nurse about conversation. Electronically signed by Vida Solis 09/14/2022 at 11:33 AM [facility] HospitalWcpjmv08-16-0829 Miscellaneous Notes* Care Coordination - BENNIE Solis - 09/14/2022 11:33 AM EDT MANAGER SITE saw patient to discuss aftercare plans and treatment post discharge. Patient was reminded aboutfollow-up appointment with Lai OROZCO on 09/19/2022 at 8:30 AM. Patient also has MAT follow-up with Dr. Hood on 10/09/2022 at 9 AM for Vivitrol. All information included in patient's discharge paperwork.. Patient denied current SI/HI/AVH. Patient reported that their would be picking them up from the hospital and taking them back home. Patient denied needing anything further from MANAGER SITE at the time. MANAGER SITE informed patient's nurse about conversation. Electronically signed by Vida Solis 09/14/2022 at 11:33 AM * Group Note - Soco Edmonds - 09/13/2022 4:05 PM EDT Department: [facility] [employer] [facility] Group Topic: Mindfulness Group Date: 09/13/2022 [...] Jesus Hogan Date of : 1965 MR: [id number] Mental Status Exam: Appearance: Appropriately dressed and [...] disorder Alcohol withdrawal syndrome without complication (HCC) * Care Plan - Mojgan Blum RD - 09/12/2022 4:40 PM EDT Continue to have good appetite * Care Coordination - BENNIE Solis - 09/12/2022 2:34 PM EDT MANAGER SITE being interested in [facility] for aftercare program. MANAGER SITE offered to call and schedule patient's intake appointment and patient was agreeable. Patient is also agreeable to Vivitrol injections previous to leaving the unit as well as following up with MAT services. MANAGER SITE schedule patient intake assessment include all information on patient's discharge plans. MANAGER SITE will continue to follow-up as necessary. * Care Plan - Magaly Chowdhury RN - 09/11/2022 11:13 PM EDT Problem: Potential for Substance Withdrawal Goal: Verbalizes [...] Goal: Free from restraint events Outcome: Progressing * Care Coordination - BENNIE Solis - 09/11/2022 8:16 AM EDT Behavioral Health Psycho-Social Assessment (Social Work) Date: 09/11/2022 Patient Name: Maria De Jesus Hogan : 1965 Identifying Information: Patient is a 56-year-old male admitted to for detox and alcohol. Patient is well-known to addiction medicine team as he was previously seen in September 2021. Previous that patient was seen in January 2021 Where patient left [facility]. Presenting Problem: Patient presented to the ED on 09/10/2022 requesting detox from alcohol. Patientreports having nausea and vomiting for over a [...] He has previous history of [facility] [place] [facility]. Patient has history of psychiatric admission. Reports admission was due to suicidal ideation while intoxicated Denies history of recent or past suicide attempts. Patient denies current SI/HI/AVH. Patient does have an extensive history of passive SI secondary to intoxication. Patient denies plan, intent, or method but reports more increased feelings of depression and sadness. Patient denies recentor past history of SIB. Substance Abuse/Use: Patient [...] Patient does have extensive history of falls whileintoxicated. Patient reports previous history of engagement with [...] as an adult. Patient denies any history Orbisonia or status. Family Constellation/Childhood History: Patient reports that he is currently to his living in [facility]. Patient reports that he has 3 biological children and 4 stepchildren. Patient reports that his father in his 11 years old. Patient did not report his mother is stillalive currently. Patient was born and raised in [place], [place] by his mother and father. He reports that his father when he was 11 years old, and this was traumatic for him. Patient reports that he was raisedprimarily by his mother for the remainder of his childhood. He denies childhood abuse. Education/Work: Patient reports that he graduated high school. 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 Patient denies SSI/SSD. Cultural/Spirituality/Leisure: Patient denies any cultural needs or concerns at the current time. Patient denies identify any sikhism preference. It is unknown if patient is [...] (Patient has history of psychiatric admission. Reports admissionwas due to suicidal ideation while intoxicated Denies [...] plan, intent, or method but reports more increasedfeelings of depression and sadness.) Activating Events (Recent): [...] from the unit to look like. Patient isopen to working with MANAGER SITE to identify an aftercare plan. Patient is encouraged to engage in all activities that are offered to him while he is on the unit. Patient not report anything additional at current time. Patient encouraged to seek out unit staff or MANAGER SITE should he identify any additional needsor concerns. Comment: Please note this report has been produced using speech recognition software and may contain errors related to that system including errors in grammar, punctuation, and spelling, as well as words and phrases that may be inappropriate. If there are any questions or concerns please feel free to contact the dictating provider for clarification. documented in this encounterSNewark [id number] Group counseling note* Group Note - Soco Edmonds - 09/13/2022 4:05 PM EDT Department: [facility] THERAPY Group Topic: Mindfulness Group [...] Jesus Hogan Date of : 1965 MR: [id number] Mental Status Exam: Appearance: Appropriately dressed and [...] disorder Alcohol withdrawal syndrome without complication (HCC) [facility] HospitalKybulb17-83-5091 Plan of care note* Care Plan - Mojgan Blum RD - 09/12/2022 4:40 PM EDT Continue to have good appetite [facility] HospitalVfwtki54-47-7313 Note* Care Coordination - BENNIE Solis - 09/12/2022 2:34 PM EDT MANAGER SITE being interested in [facility] for aftercare program. MANAGER SITE offered to call and schedule patient's intake appointment and patient was agreeable. Patient is also agreeable to Vivitrol injections previous to leaving the unit as well as following up with MAT services. MANAGER SITE schedule patient intake assessment include all information on patient's discharge plans. MANAGER SITE will continue to follow-up as necessary. [facility] HospitalQzemor26-06-4929 Note* Care Coordination - BENNIE Solis - 09/12/2022 2:34 PM EDT MANAGER SITE being interested in [facility] for aftercare program. MANAGER SITE offered to call and schedule patient's intake appointment and patient was agreeable. Patient is also agreeable to Vivitrol injections previous to leaving the unit as well as following up with MAT services. MANAGER SITE schedule patient intake assessment include all information on patient's discharge plans. MANAGER SITE will continue to follow-up as necessary. [facility] HospitalNfwfhf25-95-9585 Nurse Note* Magaly Chowdhury RN - 09/12/2022 1:55 AM EDT Pt cooperative with nursing care and med compliant. Withdrawn to room in bed. Bed alarm in place, urinal at bedside. Denies SI/HI/AVH. Pt tremors have improved but still very tremulous. Pt encouragedto make needs known to staff. Call light within reach. Pt slept throughout the night. Safety checksmaintained. [facility] HospitalVqtarv34-93-1416 Nurse Note* Magaly Chowdhury RN - 09/12/2022 1:55 AM EDT Pt cooperative with nursing care and med compliant. Withdrawn to room in bed. Bed alarm in place, urinal at bedside. Denies SI/HI/AVH. Pt tremors have improved but still very tremulous. Pt encouragedto make needs known to staff. Call light within reach. Pt slept throughout the night. Safety checksmaintained. documented in this encounterSNewark [id number] Plan of care note* Care Plan - Magaly Chowdhury RN - 09/11/2022 11:13 PM EDT Problem: Potential for Substance Withdrawal Goal: Verbalizes [...] Goal: Free from restraint events Outcome: Progressing [facility] HospitalNqxnwm07-92-1601 History and physical note* Robyn Edmond APRN - JAMAL - 09/11/2022 10:45 AM EDT Addiction Unit H & P September 11, 2022Saturday Maria De Jesus Hogan 1965 Admitted: Yesterday September 10, from [facility] ED with C/O nausea, vomiting & [...] today. He says that he feels a bitshaky. He says he has had bad withdrawal [...] PCP: Lynda Rasheed (family medicine) (2cd ); [employer]; last worked one month ago. PMH: psoriasis, [...] He has a history of IOP at [facility] in [place]. He has a history of a psychiatric [...] all unit groups Robyn Edmond APRN DNP [facility] HospitalAniyfj32-85-6758 History and physical note* Robyn Edmond, RN INFUSION - PARADI TENDER - 09/11/2022 10:45 AM EDT Addiction Unit H & P September 11, 2022Saturday Maria De Jesus Hogan 1965 Admitted: Yesterday September 10, from [facility] ED with C/O nausea, vomiting & [...] today. He says that he feels a bitshaky. He says he has had bad withdrawal [...] PCP: Lynda Rasheed (family medicine) (2cd ); [employer]; last worked one month ago. PMH: psoriasis, [...] He has a history of IOP at [facility] and [facility] in [place]. He has a history of a psychiatric [...] Robyn Edmond APRN DNP documented in this [facility]06-13-2023 Hospital Discharge instructions* Discharge Instr - Other Orders* BENNIE Solis - 09/11/2022 8:39 AM EDT After detox you should abstain from any use of any mood altering chemical Appointment with your primary care physician should be scheduled It is highly recommended that you attend post hospital treatment Please read the information give to you - Intro to 12 step programs Call the National Suicide Prevention Hotline if needed at: 6-618-822-AVOS (6923) Please call the following number should you have questions regarding your discharge or aftercare appointments: [facility] documented in this [facility]06-13-2023 Note* Care Coordination - BENNIE Solis - 09/11/2022 8:16 AM EDT Behavioral Health Psycho-Social Assessment (Social Work) Date: [...] ED on 09/10/2022 requesting detox from alcohol. Patientreports having nausea and vomiting for over a [...] He has previous history of [facility] [place] for outpatient mental health treatment. Patient has history of psychiatric admission. Reports admission was due to suicidal ideation while intoxicated Denies history of recent or past suicide attempts. Patient denies current SI/HI/AVH. Patient does have an extensive history of passive SI secondary to intoxication. Patient denies plan, intent, or method but reports more increased feelings of depression and sadness. Patient denies recentor past history of SIB. Substance Abuse/Use: Patient [...] Patient does have extensive history of falls whileintoxicated. Patient reports previous history of engagement with [...] poor nutrition and sleep secondary to his gomez bstance use. Legal/Trauma/ History: Patient denies any current legal issues. Patient reports past legal history of child support violations. Patient denies any history of childhood abuse. Patient does report however his father when he was 11 years old which was a traumatic incident to him. Patient denies any history of trauma abuse as an adult. Patient denies any history Orbisonia or status. Family Constellation/Childhood History: Patient reports that he is currently to his living in [facility]. Patient reports that he has 3 biological children and 4 stepchildren. Patient reports that his father in his 11 years old. Patient did not report his mother is stillalive currently. Patient was born and raised in [place], [place] by his mother and father. He reports that his father when he was 11 years old, and this was traumatic for him. Patient reports that he was raisedprimarily by his mother for the remainder of his childhood. He denies childhood abuse. Education/Work: Patient reports that he graduated high school. 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 Patient denies SSI/SSD. Cultural/Spirituality/Leisure: Patient denies any cultural needs or concerns at the current time. Patient denies identify any sikhism preference. It is unknown if patient is [...] (Patient has history of psychiatric admission. Reports admissionwas due to suicidal ideation while intoxicated Denies [...] plan, intent, or method but reports more increasedfeelings of depression and sadness.) Activating Events (Recent): [...] from the unit to look like. Patient isopen to working with MANAGER SITE to identify an aftercare plan. Patient is encouraged to engage in all activities that are offered to him while he is on the unit. Patient not report anything additional at current time. Patient encouraged to seek out unit staff or MANAGER SITE should he identify any additional needsor concerns. Comment: Please note this report has been produced using speech recognition software and may contain errors related to that system including errors in grammar, punctuation, and spelling, as well as words and phrases that may be inappropriate. If there are any questions or concerns please feel free to contact the dictating provider for clarification. [facility] HospitalMpdfsq65-99-4693 Note* Care Coordination - BENNIE Solis - 09/11/2022 8:16 AM EDT Behavioral Health Psycho-Social Assessment (Social Work) Date: 09/11/2022 Patient Name: Maria De Jesus Hogan : 1965 Identifying Information: Patient is a 56-year-old male admitted to for detox and alcohol. Patient is well-known to addiction medicine team as he was previously seen in September 2021. Previous that patient was seen in January 2021 Where patient left [facility]. Presenting Problem: Patient presented to the ED on 09/10/2022 requesting detox from alcohol. Patientreports having nausea and vomiting for over a [...] He has previous history of engagement with [facility] in [place] for outpatient mental health treatment. Patient has history of psychiatric admission. Reports admission was due to suicidal ideation while intoxicated Denies history of recent or past suicide attempts. Patient denies current SI/HI/AVH. Patient does have an extensive history of passive SI secondary to intoxication. Patient denies plan, intent, or method but reports more increased feelings of depression and sadness. Patient denies recentor past history of SIB. Substance Abuse/Use: Patient [...] Patient does have extensive history of falls whileintoxicated. Patient reports previous history of engagement with [...] poor nutrition and sleep secondary to his gomez bstance use. Legal/Trauma/ History: Patient denies any current legal issues. Patient reports past legal history of child support violations. Patient denies any history of childhood abuse. Patient does report however his father when he was 11 years old which was a traumatic incident to him. Patient denies any history of trauma abuse as an adult. Patient denies any history Orbisonia or status. Family Constellation/Childhood History: Patient reports that he is currently to his living in [facility]. Patient reports that he has 3 biological children and 4 stepchildren. Patient reports that his father in his 11 years old. Patient did not report his mother is stillalive currently. Patient was born and raised in [place], [place] by his mother and father. He reports that his father when he was 11 years old, and this was traumatic for him. Patient reports that he was raisedprimarily by his mother for the remainder of his childhood. He denies childhood abuse. Education/Work: Patient reports that he graduated high school. 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 Patient denies SSI/SSD. Cultural/Spirituality/Leisure: Patient denies any cultural needs or concerns at the current time. Patient denies identify any sikhism preference. It is unknown if patient is [...] (Patient has history of psychiatric admission. Reports admissionwas due to suicidal ideation while intoxicated Denies [...] plan, intent, or method but reports more increasedfeelings of depression and sadness.) Activating Events (Recent): [...] from the unit to look like. Patient isopen to working with MANAGER SITE to identify an aftercare plan. Patient is encouraged to engage in all activities that are offered to him while he is on the unit. Patient not report anything additional at current time. Patient encouraged to seek out unit staff or MANAGER SITE should he identify any additional needsor concerns. Comment: Please note this report has been produced using speech recognition software and may contain errors related to that system including errors in grammar, punctuation, and spelling, as well as words and phrases that may be inappropriate. If there are any questions or concerns please feel free to contact the dictating provider for clarification. T [facility] HospitalWshlsj73-12-5476 Emergency department Note* Kristina Barajas RN - 09/10/2022 7:41 PM EDT Patient went to floor at shift change prior to this RN being able to see patient. Patient to floor with protective services and transport with belongings and papers. Report was completed by TISH Pete prior to this nurse shift. Kristina Barajas RN 09/10/221940 [facility] HospitalAwbrqv97-53-2614 Emergency department Note* Kristina Barajas RN - 09/10/2022 7:41 PM EDT Patient went to floor at shift change prior to this RN being able to see patient. Patient to floor with protective services and transport with belongings and papers. Report was completed by TISH Pete prior to this nurse shift. Kristina Barajas RN 09/10/221940 * Juan R Garcia RN - 09/10/2022 7:28 PM EDT Report to Kristina THOMPSON. Juan R Garcia RN 09/10/221928 * Juan R Garcia RN - 09/10/2022 6:35 PM EDT Report to Beena Valadez RN. Juan R Garcia RN 09/10/22 1830 * Juan R Garcia RN - 09/10/2022 6:18 PM EDT Belonging check performed via protective services. 1 personal belonging bag. Pt wanded and placed into inpatient gown. Gripper socks provided. Bagged lunch provided. Contract signed. Juan R Garcia RN 09/10/22 3270 * Juan R Garcia RN - 09/10/2022 4:58 PM EDT Pt remains asleep at this time in no acute distress. Juan R Garcia RN 09/10/22 1658 * Juan R Garcia RN - 09/10/2022 4:[address] Abraham, no phenobarbital at this time. Juan R Garcia RN 09/10/22 1609 * Juan R Garcia RN - 09/10/2022 3:41 PM EDT Pt desatting upon falling asleep. Pt placed on 4L O2 at this time. Juan R Garcia RN 09/10/22 1551 * Juan R Garcia RN - 09/10/2022 2:23 PM EDT Pt returned from CT. Juan R Garcia RN 09/10/22 1424 * Triston Abraham MD - 09/10/2022 12:02 PM EDT [facility] EMERGENCY DEPT EMERGENCY DEPARTMENT ENCOUNTER Pt [...] today. He says that he feels a bitshaky. He says he has had bad withdrawal [...] CYST REMOVAL face EGD (HISTORICAL) 07/23/2022 Dr. [facility]rella[facility] UPPER GASTROINTESTINAL ENDOSCOPY 09/27/2021 normal WISDOM TOOTH [...] rectal cancer; dx after age 50 Other (38106) Mother alcoholism Other (08879) Father h/o rheumatic fever, cardiac arrest due to bee sting Other (08272) Sister agoraphobia SOCIAL HISTORY Social History Socioeconomic [...] for medical treatment only. Analysis performed using non- forensic procedures. ACETAMINOPHEN LEVEL - Abnormal ACETAMINOPHEN <10.0 (*) LIPASE - Abnormal LIPASE 389 (*) SARS-COV-2 BY PCR - Normal SARS-CoV-2 Not Detected Narrative: Methodology: real-time, RT-PCR The SARS-CoV-2 assay is intended for in vitro diagnostic use under the FDA Emergency Use Authorization (EUA). This test has not been FDA cleared or approved. In compliance with this authorization, please visit www.fda.gov/media/727822/download or www.fda.gov/media/797666/download to access the applicable information sheets. CK [...] If confirmation is needed, request confirmation under separateorder. EMERGENCY DEPARTMENT COURSE and DIFFERENTIAL DIAGNOSIS/MDM: Vitals: Vitals: 09/10/22 1220 09/10/22 1329 09/10/22 1448 09/10/22 1551 BP: 112/80 (!) 158/143 117/81 Pulse: 109 (!) 114 108 Resp: 16 18 Temp: 36.2 C (97.1 F) TempSrc: Temporal SpO2: 97% 92% 98% Medications LORazepam (Ativan) tablet 1 mg ( Oral See Alternative 09/10/221404) Or LORazepam (Ativan) injection 1 mg (1 [...] substantive portion of the visit including all aspectsof the medical decision making. Patient appears nontoxic. [...] admitted the patient. He requested a phenobarbital p.o.dose however the patient is quite sleepy at [...] Triston Abraham MD PATRICIA Emergency Medicine Physician [facility] Triston Abraham MD 09/10/22 1611 documented in this encounterSNewark HospitalFxtqsi29-40-1878 Emergency department Note* Juan R Garcia RN - 09/10/2022 7:28 PM EDT Report to Kristina THOMPSON. Juan R Garcia RN 09/10/22 192 [facility] HospitalGmujxs70-96-0531 Emergency department Note* Juan R Garcia RN - 09/10/2022 6:35 PM EDT Report to Beena Garcia RN 09/10/22 1835 [facility] HospitalZtwyrz44-67-2193 Emergency department Note* Juan R Garcia RN - 09/10/2022 6:18 PM EDT Belonging check performed via protective services. 1 personal belonging bag. Pt wanded and placed into inpatient gown. Gripper socks provided. Bagged lunch provided. Contract signed. Juan R Garcia RN 09/10/22 2694 [address]Rhyylb35-19-2659 Emergency department Note* Juan R Garcia RN - 09/10/2022 4:58 PM EDT Pt remains asleep at this time in no acute distress. Juan R Garcia RN 09/10/22 1658 [address]Ktjlgb24-89-7023 Emergency department Note* Juan R Garcia RN - 09/10/2022 4:[address] Abraham, no phenobarbital at this time. Juan R Garcia RN 09/10/22 1609 [address]Gqmefg50-57-8057 Emergency department Note* Juan R Garcia RN - 09/10/2022 3:41 PM EDT Pt desatting upon falling asleep. Pt placed on 4L O2 at this time. JuanR Garcia RN 09/10/22 1551 [address]Juicww39-75-4652 Emergency department Note* Juan R Garcia RN - 09/10/2022 2:23 PM EDT Pt returned from CT. Juan R Garcia RN 09/10/22 1424 [facility] HospitalJykhzs15-57-3273 Physician Emergency department Note* Triston Abraham MD - 09/10/2022 12:02 PM EDT [facility] EMERGENCY DEPT EMERGENCY DEPARTMENT ENCOUNTER Pt [...] today. He says that he feels a bitshaky. He says he has had bad withdrawal [...] CYST REMOVAL face EGD (HISTORICAL) 07/23/2022 Dr. [facility]rella[facility] UPPER GASTROINTESTINAL ENDOSCOPY 09/27/2021 normal WISDOM TOOTH [...] rectal cancer; dx after age 50 Other (48746) Mother alcoholism Other (60144) Father h/o rheumatic fever, cardiac arrest due to bee sting Other (19434) Sister agoraphobia SOCIAL HISTORY Social History Socioeconomic [...] for medical treatment only. Analysis performed using non- forensic procedures. ACETAMINOPHEN LEVEL - Abnormal ACETAMINOPHEN <10.0 (*) LIPASE - Abnormal LIPASE 389 (*) SARS-COV-2 BY PCR - Normal SARS-CoV-2 Not Detected Narrative: Methodology: real-time, RT-PCR The SARS-CoV-2 assay is intended for in vitro diagnostic use under the FDA Emergency Use Authorization (EUA). This test has not been FDA cleared or approved. In compliance with this authorization, please visit www.fda.gov/media/701314/download or www.fda.gov/media/289251/download to access the applicable information sheets. CK [...] If confirmation is needed, request confirmation under separateorder. EMERGENCY DEPARTMENT COURSE and DIFFERENTIAL DIAGNOSIS/MDM: Vitals: [...] 4 mg ( Oral See Alternative 09/10/22 140) Or LORazepam (Ativan) injection 4 mg ( IntraVENous See Alternative 09/10/22 140) albuterol 108 (90 Base) MCG/ACT inhaler 2 [...] substantive portion of the visit including all aspectsof the medical decision making. Patient appears nontoxic. [...] admitted the patient. He requested a phenobarbital p.o.dose however the patient is quite sleepy at [...] but occasionally words and phrases are mis-transcribed.) MD ROXANA LyonsA Emergency Medicine Physician [facility] Triston Abraham MD 09/10/22 1611 [facility] HospitalCepulv46-13-0244 History of Present illness Narrative* Lynda Rasheed MD - 08/01/2022 8:20 AM EDT Images from the original note were not included. [facility] [address] [facility] [address] Dept: [phone] Dept Loc: [phone] Reason for Visit: Follow-up (Discuss results and [...] morning (before breakfast)., Starting Sat08/01/2022, Normal - [facility] 3. Abnormal EKG EKG reviewed from [...] total volume of 10 mL. May administer asdivided doses to reach optimal image enhancement 4. SOB (shortness of breath) - Complete PFT study - XR chest 2 views - Comprehensive metabolic panel 5. Lombardo's esophagus with dysplasia started patient on Protonix - [facility] 6. Screening for colon cancer - [facility] 7. ED (erectile dysfunction) of non-organic origin - [facility] Urology current treatment plan is effective, no [...] for hematemesis, GI was consulted and EGD wa s done that showed Lombardo's esophagitis. Patient left the hospital AGAINST MEDICAL ADVICE. Patientstated he stopped Protonix I had a conversation with him due to his Lombardo's he needs to continue his Protonix so I refilled his prescription he was also found to be hyponatremic most likely caused by alcohol I also discussed with patient to stop drinking alcohol he goes to AA meetings [facility] patient is agreeable to this. He also has been having some issues with shortness of breath he is a smoker at this time he does declined to quit he has no known history of asthma or COPD however we also discussed his EKG findings which showed some possible at rial enlargement. He is not having any chest [...] CYST REMOVAL face EGD (HISTORICAL) 07/23/2022 Dr. Estrella[facility] UPPER GASTROINTESTINAL ENDOSCOPY 09/27/2021 normal WISDOM TOOTH EXTRACTION Family History Problem Relation Name Age of Onset Depression Sister Cancer Mother colon rectal cancer; dx after age 50 Other (62616) Mother alcoholism Other (89013) Father h/o rheumatic fever, cardiac arrest due to bee sting Other (24229) Sister agoraphobia Health Maintenance Topic Date Due [...] without evidence of acute diverticulitis. No definite evidenceof pneumatosis coli. Abdominal wall: No ventral hernia [...] EDT Lynda Rasheed MD documented in this [facility]04-24-2023 Consult note* Isaac Mann MD - 07/23/2022 11:50 AM EDTAssociated Order(s): IP CONSULT TO ADDICTION MEDICINE [facility] Consult service H&P Admit Date: 07/21/2022 Primary Care Physician: Lynda Rasheed MD ] Chief Complaint Patient presents with Alcohol Problem Pt states that he is a daily drinker, usually 8-9 tall boys a day. Pt has been vomiting x1 week andwife states he has been getting intoxicated from drinking but is not keeping down what he normally would. 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 Also reports BRB [...] CYST REMOVAL face EGD (HISTORICAL) 07/23/2022 Dr. Estrella[facility] UPPER GASTROINTESTINAL ENDOSCOPY 09/27/2021 normal WISDOM TOOTH EXTRACTION Family History Problem Relation Name Age of Onset Depression Sister Cancer Mother colon rectal cancer; dx after age 50 Other (51343) Mother alcoholism Other (61683) Father h/o rheumatic fever, cardiac arrest due to bee sting Other (77477) Sister agoraphobia Social History Socioeconomic History Marital [...] 4 distal extremities. Normal range of motion in4 distal extremities. Psychiatric: Alert and oriented to [...] 372 ms QTC Interval 468 ms P [place] 50 degrees QRS [place] 44 degrees T Wave [place] 50 degrees RI Interval 188 ms CBC Collection Time: 07/22/22 [...] ODT OR ondansetron, polyethylene glycol (PEG) 3350 @[id number]@ Plan 1. 1. Alcohol use disorder severe [...] that he is going to go to [facility] and they going to detox him there [...] evaluating detoxification medications, and discussing treatment plan. [employer] Phone: [phone] 845-108704-24-2023 Consult note* Isaac Mann MD - 07/23/2022 11:50 AM EDTAssociated Order(s): IP CONSULT TO ADDICTION MEDICINE [facility] Consult service H&P Admit Date: 07/21/2022 Primary Care Physician: Lynda Rasheed MD ] Chief Complaint Patient presents with Alcohol Problem Pt states that he is a daily drinker, usually 8-9 tall boys a day. Pt has been vomiting x1 week andwife states he has been getting intoxicated from drinking but is not keeping down what he normally would. 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 Also reports BRB [...] CYST REMOVAL face EGD (HISTORICAL) 07/23/2022 Dr. Estrella[facility] UPPER GASTROINTESTINAL ENDOSCOPY 09/27/2021 normal WISDOM TOOTH EXTRACTION Family History Problem Relation Name Age of Onset Depression Sister Cancer Mother colon rectal cancer; dx after age 50 Other (78368) Mother alcoholism Other (66084) Father h/o rheumatic fever, cardiac arrest due to bee sting Other (69493) Sister agoraphobia Social History Socioeconomic History Marital [...] 4 distal extremities. Normal range of motion in4 distal extremities. Psychiatric: Alert and oriented to [...] 372 ms QTC Interval 468 ms P [place] 50 degrees QRS [place] 44 degrees T Wave [place] 50 degrees RI Interval 188 ms CBC Collection Time: 07/22/22 [...] ODT OR ondansetron, polyethylene glycol (PEG) 3350 @[id number]@ Plan 1. 1. Alcohol use disorder severe [...] that he is going to go to [facility] and they going to detox him there [...] evaluating detoxification medications, and discussing treatment plan. * Jose Sameer, DO - 07/22/2022 10:49 AM EDTAssociated Order(s): IP CONSULT TO GI Images from the original note were not included. GASTROENTEROLOGY CONSULTATION REASON FOR CONSULT: The patient was seen in consultation at the request of Dr. Teixeira re: Hematemesis HISTORY OF PRESENT ILLNESS: The patient is a 56 y.o. male with past medical history as listed belowincluding history of chronic alcohol abuse who presents with hematemesis. The patient came to the ED requesting detox. Had a similar admission this past August 2021. EGD with Dr. Gotti with evidence of esophagitis and Lombardo's esophagus. No evidence of esophageal or gastric varices. Patient continues to drink heavily on a daily basis. Yesterday had a few episodes of nonbloody emesis followed by asmall amount of hematemesis which she described as [...] rectal cancer; dx after age 50 Other (27212) Mother alcoholism Other (99420) Father h/o rheumatic fever, cardiac arrest due to bee sting Other (34582) Sister agoraphobia MEDICATIONS PRIOR TO ADMISSION: Current [...] OR LORazepam (Ativan) injection 1 mg, 1 mg,IntraVENous, q1h PRN OR LORazepam (Ativan) tablet 2 [...] Oral, Daily, Redd Teixeira MD, 100 mg at07/22/22 0838 ALLERGIES: Allergies Allergen Reactions Bee Venom [...] BS. No hepatosplenomegaly. No mass felt. No reboundor guarding. No hernia. No stigmata of ESLD [...] without evidence of acute diverticulitis. No definite evidenceof pneumatosis coli. Abdominal wall: No ventral hernia [...] are any questions or concerns please feel freeto contact the dictating provider for clarification.) Electronically signed by Jose Estrella DO 07/22/2022 10:49 AM documented in this [facility]04-24-2023 Hospital course Narrative* Redd Teixeira MD - 07/23/2022 11:50 AM EDT Discharge Summary Maria De Jesus Hogan : [...] AMA Follow up with Lynda Rasheed MD [address] [place] [address] INSTRUCTIONS TO MA/SW: Please call patient on [...] MD 07/23/2022, 12:20 PM documented in this [facility]04-24-2023 History of Present illness Narrative* Sera Garcia RN - 07/23/2022 11:40 AM EDT Patient discussed leaving AMA with Dr. Teixeira and addiction medicine. AMA paperwork signed and witnessed. * Radha Abdi - 07/23/2022 8:24 AM EDT Nutrition rescreen completed. Patient assigned a level 1. * Tram Tello RN - 07/23/2022 3:00 AM EDT Awake. Pulse ox 96% on 6L, decreased to 5L, then to 4L. Pulse ox now 93% 4L. Will moniter * Tram Tello RN - 07/23/2022 12:49 AM EDT Sleeping soundly. Pulse ox dropping into mid 80's on 4L. O2 increase to 5L, then 6L, to get pulse ox to 92%. Pt arouses easily, but right back to sleep * Keila Holcomb RN - 07/22/2022 2:30 PM EDT Pt appears to be sleeping soundly. Rouses with physical stimuli, disoriented but redirectable. PO 88% on 2L NC, back to 92-93% when prompted to deep breath. States, just let me sleep. Will cont to monitor * Redd Teixeira MD - 07/22/2022 10:40 AM EDT Images from the original note were not included. Hospitalist Progress Note 07/22/[phone]: Please secure chat me for patient care issues. [phone]: Please secure chat [facility] Hospitalist for any issues. Subjective: Admit [...] advance the diet. Adult diet Full liquid @[id number]@ 24HR INTAKE/OUTPUT: Intake/Output Summary (Last 24 hours) [...] Depression Hypertension Insomnia LABS: CBC: Recent Labs 07/21/22164107/22/22 0124 WBC 6.2 5.7 RBC 4.77 4.77 [...] 122 PROT 7.4 7.3 PT/INR: Recent Labs 07/21/22 1642 PROTIME 10.3 INR 0.9 CARDIAC ENZYMES: Recent Labs 07/21/22 1642 TROPONINI <0.012 Procalcitonin: No results found for: [...] Information Primary Emergency Contact: Samira Relation: Spouse Redd Teixeira MD Division of Hospitalist Medicine [employer] [facility] PAGER: Epic chat * Keila Holcomb RN - 07/22/2022 10:00 AM EDT AAOX3, responds appropriately but vague. Requesting liquids, pt taking sips with meds, no apparent swallowing deficit or dysphagia noted. Will cont to monitor. documented in this [facility]04-24-2023 Note* Perioperative Nursing Note - Radha Bonilla RN - 07/23/2022 10:11 AM EDT POST ENDOSCOPY PROCEDURE TRANSFER REPORT Procedure completed: egd Findings:see op note Specimens obtained: no Medications administered: see emar Additional Info: see emar For additional Questions please call Endoscopy at [phone]. Thank You! [facility] HospitalAcctqq83-77-2300 Miscellaneous Notes* Perioperative Nursing Note - Radha Bonilla RN - 07/23/2022 10:11 AM EDT POST ENDOSCOPY PROCEDURE TRANSFER REPORT Procedure completed: egd Findings:see op note Specimens obtained: no Medications administered: see emar Additional Info: see emar For additional Questions please call Endoscopy at [phone]. Thank You! * Op Note - Jose Estrella DO - 07/23/2022 9:24 AM EDT [facility] Patient Name: Maria De Jesus Hogan Procedure Date: 07/23/2022 9:24 AM Gender: Male Date of : 1965 Age: 56 Admit Type: Inpatient Note Status: Finalized Endoscopist: Jose Estrella DO, [id number] Procedure: Upper GI endoscopy Indications: Hematemesis Findings: [...] immediate complications. Procedure Code(s): --- Professional --- 54943, Esophagogastroduodenoscopy, flexible, transoral; diagnostic, including collection of specimen(s) by brushing or washing, when performed (separate procedure) --- Technical --- 67744, Esophagogastroduodenoscopy, flexible, transoral; diagnostic, including collection of specimen(s) by brushing or washing, when performed (separate procedure) Diagnosis Code(s): --- Professional --- K22.70, Lombardo's esophagus without dysplasia K44.9, Diaphragmatic hernia without obstruction or gangrene K92.0, Hematemesis --- Technical --- K22.70, Lombardo's esophagus without dysplasia K44.9, Diaphragmatic hernia without obstruction or gangrene K92.0, Hematemesis CPT copyright 2021 [employer]. All rights reserved. The codes documented in this report are preliminary and upon strategy lead review may be revised to meet current compliance requirements. Attending Participation: I personally performed the entire procedure. Jose Estrella DO 07/23/2022 9:53:58 AM This report has been signed electronically. Number of Addenda: 0 Note Initiated On: 07/23/2022 9:24 AM * Care Coordination - Keila Yo RN - 07/22/2022 12:25 PM EDT Care Managment Initial Assessment Date: 07/22/2022 Patient Name: Maria De Jesus Hogan : 1965 Patient Information Source of Information: Patient, Patient Slot Floor Attendant Name/Contact Information: JUNE SAMIRA [phone] SPOUSE Cognition/Language: WFL - Within Functional Limits Permission given to speak with patient appeals representative/caregiver as indicated: Yes Confirmation of Payer with patient/family: Yes Payer Name: [place] : No Confirmation of Primary Care Physician: [...] Living Prescription Coverage: Yes Pharmacy Used: [facility] [place] Medication Management: Independent Transportation/Shopping: Independent Transportation Mode: [...] to tel, GI and addiction med consulted, dailylabs, h/h every 8 hours, ciwa protocol. Npo [...] spouse when medically stable. Will update social media community manager to provide with community resources. Tentative discharge plan is home with family when medically stable. Keila Yo RN * Care Plan - Nick Gordon RN - 07/22/2022 2:06 AM EDT Problem: Pain - Adult Goal: Verbalizes/displays adequate comfort level or baseline comfort level Outcome: Progressing Problem: Safety - Adult Goal: Free from fall injury Outcome: Progressing documented in this [facility]04-24-2023 Note* Op Note - Jose Estrella DO - 07/23/2022 9:24 AM EDT [facility] Patient Name: Maria De Jesus Hogan Procedure Date: 07/23/2022 9:24 AM Gender: Male Date of : 1965 Age: 56 Admit Type: Inpatient Note Status: Finalized Endoscopist: Jose Estrella DO, [id number] Procedure: Upper GI endoscopy Indications: Hematemesis Findings: [...] immediate complications. Procedure Code(s): --- Professional --- 26874, Esophagogastroduodenoscopy, flexible, transoral; diagnostic, including collection of specimen(s) by brushing or washing, when performed (separate procedure) --- Technical --- 28169, Esophagogastroduodenoscopy, flexible, transoral; diagnostic, including collection of specimen(s) by brushing or washing, when performed (separate procedure) Diagnosis Code(s): --- Professional --- K22.70, Lombardo's esophagus without dysplasia K44.9, Diaphragmatic hernia without obstruction or gangrene K92.0, Hematemesis --- Technical --- K22.70, Lombardo's esophagus without dysplasia K44.9, Diaphragmatic hernia without obstruction or gangrene K92.0, Hematemesis CPT copyright 2021 [employer]. All rights reserved. The codes documented in this report are preliminary and upon strategy lead review may be revised to meet current compliance requirements. Attending Participation: I personally performed the entire procedure. Jose Estrella DO 07/23/2022 9:53:58 AM This report has been signed electronically. Number of Addenda: 0 Note Initiated On: 07/23/2022 9:24 AM T [facility] HospitalCsbjyd35-53-9762 Note* Addendum Note - Lynda Rasheed MD - 07/23/2022 8:57 AM EDTAddended by: LYNDA RASHEED on: 07/23/2022 08:57 AM Modules accepted: Orders [facility] HospitalOghweh27-90-0558 Note* Addendum Note - Lynda Rasheed MD - 07/23/2022 8:57 AM EDTAddended by: LYNDA RASHEED on: 07/23/2022 08:57 AM Modules accepted: Orders [place] [id number] Telephone encounter Note* Telephone Encounter - Lynda Rasheed MD - 07/23/2022 8:57 AM EDT sent [place] [id number] Miscellaneous Notes* Addendum Note - Lynda Rasheed MD - 07/23/2022 8:57 AM EDTAddended by: LYNDA RASHEED on: 07/23/2022 08:57 AM Modules accepted: Orders * Telephone Encounter - Lynda Rasheed MD - 07/23/2022 8:57 AM EDT sent * Telephone Encounter - Clarita Cpopola LPN - 07/20/2022 1:00 PM EDT Letter sent. * Telephone Encounter - Clarita Coppola LPN - 07/13/2022 11:58 AM EDT Phone OOS * Telephone Encounter - Kristina Fan MA - 07/12/2022 11:40 AM EDT Phone OOS * Telephone Encounter - Lynda Rasheed MD - 07/11/2022 4:56 PM EDT No * Telephone Encounter - Clarita Coppola LPN - 07/11/2022 4:16 PM EDT Is there more to #3? * Telephone Encounter - Lynda Rasheed MD - 07/11/2022 3:47 PM EDT 1. X-ray of the shoulder is normal #2 Sugar is elevated add an A1c. Cholesterol is improving however still elevated. Low-fat diet and exercise recommend medication called Crestor let me know if okay to send in. documented in this [facility]04-23-2023 Note* Care Coordination - Keila Yo RN - 07/22/2022 12:25 PM EDT Care Managment Initial Assessment Date: 07/22/2022 Patient Name: Maria De Jesus Hogan : 1965 Patient Information Source of Information: Patient, Patient Slot Floor Attendant Name/Contact Information: JUDY HOGAN [phone] SPOUSE Cognition/Language: WFL - Within Functional Limits Permission given to speak with patient appeals representative/caregiver as indicated: Yes Confirmation of Payer with patient/family: Yes Payer Name: [place] : No Confirmation of Primary Care Physician: [...] Living Prescription Coverage: Yes Pharmacy Used: [facility] [place] Medication Management: Independent Transportation/Shopping: Independent Transportation Mode: [...] to tel, GI and addiction med consulted, dailylabs, h/h every 8 hours, ciwa protocol. Npo [...] spouse when medically stable. Will update social media community manager to provide with community resources. Tentative discharge plan is home with family when medically stable. Keila Yo RN T [facility] HospitalGqojvx40-52-6854 Consult note* Jose Estrella, - 07/22/2022 10:49 AM EDTAssociated Order(s): IP CONSULT TO GI Images from the original note were not included. GASTROENTEROLOGY CONSULTATION REASON FOR CONSULT: The patient was seen in consultation at the request of Dr. Teixeira re: Hematemesis HISTORY OF PRESENT ILLNESS: The patient is a 56 y.o. male with past medical history as listed belowincluding history of chronic alcohol abuse who presents with hematemesis. The patient came to the ED requesting detox. Had a similar admission this past August 2021. EGD with Dr. Gotti with evidence of esophagitis and Lombardo's esophagus. No evidence of esophageal or gastric varices. Patient continues to drink heavily on a daily basis. Yesterday had a few episodes of nonbloody emesis followed by asmall amount of hematemesis which she described as [...] rectal cancer; dx after age 50 Other (64196) Mother alcoholism Other (08583) Father h/o rheumatic fever, cardiac arrest due to bee sting Other (29717) Sister agoraphobia MEDICATIONS PRIOR TO ADMISSION: Current [...] tablet 600 mg, 600 mg, Oral, TID, eRdd Teixeira MD, 600 mg at 07/22/22 0838 LORazepam (Ativan) tablet 1 mg, 1 mg, Oral, q1h PRN OR LORazepam (Ativan) injection 1 mg, 1 mg,IntraVENous, q1h PRN OR LORazepam (Ativan) tablet 2 [...] Oral, Daily, Redd Teixeira MD, 100 mg at07/22/22 0838 ALLERGIES: Allergies Allergen Reactions Bee Venom [...] BS. No hepatosplenomegaly. No mass felt. No reboundor guarding. No hernia. No stigmata of ESLD [...] without evidence of acute diverticulitis. No definite evidenceof pneumatosis coli. Abdominal wall: No ventral hernia [...] are any questions or concerns please feel freeto contact the dictating provider for clarification.) Electronically signed by Jose Estrella DO 07/22/2022 10:49 AM [employer] Work Phone: [phone]) 554-526004-23-2023 Plan of care note* Care Plan - Nick Gordon RN - 07/22/2022 2:06 AM EDT Problem: Pain - Adult Goal: Verbalizes/displays adequate comfort level or baseline comfort level Outcome: Progressing Problem: Safety - Adult Goal: Free from fall injury Outcome: Progressing [facility]Zbrrlq39-01-5544 History and physical note* Redd Teixeira MD - 07/21/2022 6:30 PM EDT Images from the original note [...] rectal cancer; dx after age 50 Other (47541) Mother alcoholism Other (60497) Father h/o rheumatic fever, cardiac arrest due to bee sting Other (82391) Sister agoraphobia Medications Prior to Admission: No [...] choking, chest tightness, shortness of breath, wheezing andstridor. Cardiovascular: Negative for chest pain. Gastrointestinal: Negative for nausea, vomiting, abdominal pain, diarrhea and blood in stool. Genitourinary: Negative for dysuria, frequency and flank pain. Musculoskeletal: Negative for myalgias and joint swelling. Skin: Negative for rash. Neurological: Negative for dizziness, tremors, seizures, syncope, facial asymmetry, speech difficulty, weakness, numbness and headaches. Hematological: Negative for adenopathy. Psychiatric/Behavioral: Negative for suicidal ideas, behavioral problems, self- injury and dysphoricmood. Vitals: BP 126/79 Pulse 95 Temp 36.4 [...] ANIONGAP 11 LIVER PROFILE: Recent Labs 07/21/22 164 AST 56* ALT 43 BILITOT 0.5 ALKPHOS [...] Extended Emergency Contact Information Primary Emergency Contact: Samira,June Relation: Spouse Code status: Full Code -see [...] H&P to the patient's PCP. Thank you. [facility] HospitalErdafw81-71-4611 History and physical note* Redd Teixeira MD - 07/21/2022 6:30 PM EDT Images from the original note [...] COLONOSCOPY 06/10/2020 EGD/Dr Madison/[facility] CYST REMOVAL face UPPER GASTROINTESTINAL ENDOSCOPY 09/27/2021 [...] rectal cancer; dx after age 50 Other (33596) Mother alcoholism Other (79967) Father h/o rheumatic fever, cardiac arrest due to bee sting Other (98787) Sister agoraphobia Medications Prior to Admission: No [...] choking, chest tightness, shortness of breath, wheezing andstridor. Cardiovascular: Negative for chest pain. Gastrointestinal: Negative for nausea, vomiting, abdominal pain, diarrhea and blood in stool. Genitourinary: Negative for dysuria, frequency and flank pain. Musculoskeletal: Negative for myalgias and joint swelling. Skin: Negative for rash. Neurological: Negative for dizziness, tremors, seizures, syncope, facial asymmetry, speech difficulty, weakness, numbness and headaches. Hematological: Negative for adenopathy. Psychiatric/Behavioral: Negative for suicidal ideas, behavioral problems, self- injury and dysphoricmood. Vitals: BP 126/79 Pulse 95 Temp 36.4 [...] 124 PROT 7.4 PT/INR: Recent Labs 07/21/22 164 PROTIME 10.3 INR 0.9 CARDIAC ENZYMES: Recent [...] Extended Emergency Contact Information Primary Emergency Contact: Melvern,June Relation: Spouse Code status: Full Code -see [...] patient's PCP. Thank you. documented in this [facility]04-22-2023 NoteNOTE: This result is for medical treatment only. Analysis performed using non-forensic procedures. [facility] HospitalMphxmf99-81-6355 Emergency department Note* Harika Gay RN - 07/21/2022 5:15 PM EDT Pt placed on 3LNC for O2 support. Saturations as low as 74%RA while sleeping. Saturations recoveredto 90% on 3LNC while sleeping Harika Gay RN 07/21/221716 [facility] HospitalOuwwwp93-66-6152 Emergency department Note* Harika Gay RN - 07/21/2022 5:15 PM EDT Pt placed on 3LNC for O2 support. Saturations as low as 74%RA while sleeping. Saturations recoveredto 90% on 3LNC while sleeping Harika Gay RN 07/21/221716 * Arsenio Villalta DO - 07/21/2022 3:58 PM EDT EMERGENCY DEPARTMENT ENCOUNTER Pt Name: Maria De Jesus Hogan Birthdate 1965 Date of evaluation: 07/21/2022 ED Provider: Arsenio Villalta DO CHIEF COMPLAINT Chief Complaint Patient presents with Alcohol Problem Pt states that he is a daily drinker, usually 8-9 tall boys a day. Pt has been vomiting x1 week andwife states he has been getting intoxicated from drinking but is not keeping down what he normally would. 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 Also reports BRB [...] otherwise acutely negative except as in the NENANA. PAST MEDICAL HISTORY Past Medical History: Diagnosis [...] COLONOSCOPY 06/10/2020 EGD/Dr Madison/[facility] CYST REMOVAL face UPPER GASTROINTESTINAL ENDOSCOPY 09/27/2021 [...] rectal cancer; dx after age 50 Other (74121) Mother alcoholism Other (56255) Father h/o rheumatic fever, cardiac arrest due to bee sting Other (50665) Sister agoraphobia SOCIAL HISTORY Social History Socioeconomic [...] steatosis. Sigmoid diverticulosis. Report Dictated on Workstation: [email or web address] Electronically Signed By: Joon Foley Electronically Signed [...] for medical treatment only. Analysis performed using non- forensic procedures. COMPLETE URINALYSIS - Abnormal Color, Urine [...] In compliance with this authorization, please visit www.fda.gov/media/959610/download or www.fda.gov/media/374898/download to access the applicable information sheets. LIPASE [...] Culture. Procedure Abnormality Status --------- ------ Complete Urinalysis[[id number]] Abnormal Final result Please view results for [...] If confirmation is needed, request confirmation under separateorder. BLOOD TYPE AND SCREEN GEL ABO Grouping A Antibody Screen NEG Rh Type POS All other labs were within normal range or not returned as of this dictation. EMERGENCY DEPARTMENT COURSE and DIFFERENTIAL DIAGNOSIS/MDM: Vitals: Vitals: 07/21/22 1600 07/21/22 1813 BP: (!) 135/101 126/79 Pulse: 104 95 Resp: 20 Temp: 36.4 C (97.6 F) TempSrc: Temporal SpO2: 92% EMERGENCY DEPARTMENT COURSE and DIFFERENTIAL DIAGNOSIS/MDM: Vitals: Vitals: 07/21/22 1600 07/21/22 1813 BP: (!) 135/101 126/79 Pulse: 104 95 Resp: 20 Temp: 36.4 C (97.6 F) TempSrc: Temporal SpO2: 92% The patient presented with a chief complaint of epigastric abdominal pain, hematemesis, alcoholism.Hematemesis started last night. Patient would also like to be detoxed from alcohol. The differential diagnosis associated with this patient's presentation includes alcohol intoxication, Lombardo's esophagus, gastritis, ulcerative disease, esophageal varices, pancreatitis, liver disease. Our workup consisted of ordering/reviewing, labs including CMP which is normal, CBC normal, cardiac work-up alsoinitiated due to some chest discomfort, troponin was negative. EKG with no ischemic change. No leukocytosis or drop in hemoglobin. No elevation in PT/INR. Ethanol level markedly elevated 0.323. Urine drug screen is negative. Urinalysis is negative. Due to the hematemesis, patient was given 40 mg ofIV Protonix. Patient has no history of esophageal varices so no octreotide was given. CT scan of the abdomen pelvis shows no acute process. Patient began to have mild withdrawal symptoms while in theemergency room, CIWA 14. Given 2 of IV Ativan for this. Due to the hematemesis, I do not feel the neva cristobal is appropriate for direct admission to the [...] changes Discussions with other clinicians: Admitting team [facility] Chronic conditions impacting care: Hypertension Social determinants [...] injection 40 mg (40 mg IntraVENous Given 07/21/221647) morphine sulfate (PF) injection 4 mg (4 mg IntraVENous Given 07/21/221647) ondansetron (Zofran) injection 4 mg (4 mg IntraVENous Given 07/21/22 164) iopamidol (Isovue-370) 76 % injection 75 mL (75 mL IntraVENous Given 07/21/22 1752) LORazepam (Ativan) injection 2 mg (2 mg IntraVENous Given 07/21/22 1823) CONSULTS: IP CONSULT TO GI IP CONSULT [...] are any questions or concerns please feel freeto contact the dictating provider for clarification.) Arsenio Villalta DO (electronically signed) Emergency Medicine Provider Arsenio Villalta DO 07/21/22 190 documented in this [facility]04-22-2023 Physician Emergency department Note* Arsenio Villalta DO - 07/21/2022 3:58 PM EDT EMERGENCY DEPARTMENT ENCOUNTER Pt Name: Maria De Jesus Hogan Birthdate 1965 Date of evaluation: 07/21/2022 ED Provider: Arsenio Villalta DO CHIEF COMPLAINT Chief Complaint Patient presents with Alcohol Problem Pt states that he is a daily drinker, usually 8-9 tall boys a day. Pt has been vomiting x1 week andwife states he has been getting intoxicated from drinking but is not keeping down what he normally would. 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 Also reports BRB [...] otherwise acutely negative except as in the NENANA. PAST MEDICAL HISTORY Past Medical History: Diagnosis [...] rectal cancer; dx after age 50 Other (60240) Mother alcoholism Other (46979) Father h/o rheumatic fever, cardiac arrest due to bee sting Other (11399) Sister agoraphobia SOCIAL HISTORY Social History Socioeconomic [...] steatosis. Sigmoid diverticulosis. Report Dictated on Workstation: [id number] Electronically Signed By: Joon Foley Electronically Signed [...] for medical treatment only. Analysis performed using non- forensic procedures. COMPLETE URINALYSIS - Abnormal Color, Urine [...] In compliance with this authorization, please visit www.fda.gov/media/266583/download or www.fda.gov/media/404058/download to access the applicable information sheets. LIPASE [...] Culture. Procedure Abnormality Status --------- ------ Complete Urinalysis[[id number]] Abnormal Final result Please view results for [...] If confirmation is needed, request confirmation under separateorder. BLOOD TYPE AND SCREEN GEL ABO Grouping A Antibody Screen NEG Rh Type POS All other labs were within normal range or not returned as of this dictation. EMERGENCY DEPARTMENT COURSE and DIFFERENTIAL DIAGNOSIS/MDM: Vitals: Vitals: 07/21/22 1600 07/21/22 1813 BP: (!) 135/101 126/79 Pulse: 104 95 Resp: 20 Temp: 36.4 C (97.6 F) TempSrc: Temporal SpO2: 92% EMERGENCY DEPARTMENT COURSE and DIFFERENTIAL DIAGNOSIS/MDM: Vitals: Vitals: 07/21/22 1600 07/21/22 1813 BP: (!) 135/101 126/79 Pulse: 104 95 Resp: 20 Temp: 36.4 C (97.6 F) TempSrc: Temporal SpO2: 92% The patient presented with a chief complaint of epigastric abdominal pain, hematemesis, alcoholism.Hematemesis started last night. Patient would also like to be detoxed from alcohol. The differential diagnosis associated with this patient's presentation includes alcohol intoxication, Lombardo's esophagus, gastritis, ulcerative disease, esophageal varices, pancreatitis, liver disease. Our workup consisted of ordering/reviewing, labs including CMP which is normal, CBC normal, cardiac work-up alsoinitiated due to some chest discomfort, troponin was negative. EKG with no ischemic change. No leukocytosis or drop in hemoglobin. No elevation in PT/INR. Ethanol level markedly elevated 0.323. Urine drug screen is negative. Urinalysis is negative. Due to the hematemesis, patient was given 40 mg ofIV Protonix. Patient has no history of esophageal varices so no octreotide was given. CT scan of the abdomen pelvis shows no acute process. Patient began to have mild withdrawal symptoms while in theemergency room, CIWA 14. Given 2 of IV Ativan for this. Due to the hematemesis, I do not feel the neva cristobal is appropriate for direct admission to the [...] changes Discussions with other clinicians: Admitting team [facility] Chronic conditions impacting care: Hypertension Social determinants [...] 2 mg (2 mg IntraVENous Given 07/21/22 1823) CONSULTS: IP CONSULT TO GI IP CONSULT [...] are any questions or concerns please feel freeto contact the dictating provider for clarification.) Arsenio Villalta DO (electronically signed) Emergency Medicine Provider Arsenio Villalta DO 07/21/221900 [facility] HospitalXpjvup01-12-3141 Telephone encounter Note* Telephone Encounter - Clarita Coppola LPN - 07/20/2022 1:00 PM EDT Letter sent. [facility] HospitalSegpqi20-79-7095 Telephone encounter Note* Telephone Encounter - Jaja Flowers - 07/16/2022 12:50 PM EDT Pt is also requesting refills of pantoprazole (ProtoNix) 40 MG EC tablet and calcipotriene (Dovonex) 0.005 % cream. Pt advised that there should be refills of the meds at his pharmacy. Ordering provider: Dr. Rasheed Date of last office visit: 06/12/2022 Date of next office visit: n/a Updated/Validated preferred pharmacy: Yes [facility] [id number] [place] [phone] Patient instructed to contact the pharmacy prior [...] of last refill (see medication tab): 06/12/2022 [facility] HospitalMtsodg48-18-2409 Miscellaneous Notes* Telephone Encounter - Jaja Flowers - 07/16/2022 12:50 PM EDT Pt is also requesting refills of pantoprazole (ProtoNix) 40 MG EC tablet and calcipotriene (Dovonex) 0.005 % cream. Pt advised that there should be refills of the meds at his pharmacy. Ordering provider: Dr. Rasheed Date of last office visit: 06/12/2022 Date of next office visit: n/a Updated/Validated preferred pharmacy: Yes [facility] [id number] [place] [address] Patient instructed to contact the pharmacy prior [...] (see medication tab): 06/12/2022 documented in this [place] [id number] Telephone encounter Note* Telephone Encounter - Kristina Fan MA - 07/16/2022 11:25 AM EDT Last seen:06/12/22 Scheduled:n/a [address]uvotj34-16-3164 Miscellaneous Notes* Telephone Encounter - Kristina Fan MA - 07/16/2022 11:25 AM EDT Last seen:06/12/22 Scheduled:n/a documented in this [address]14-2023 Telephone encounter Note* Telephone Encounter - Clarita Coppola LPN - 07/13/2022 11:58 AM EDT Phone OOS [address]Puxian40-01-5906 Telephone encounter Note* Telephone Encounter - Kristina Fan MA - 07/12/2022 11:40 AM EDT Phone OOS [address]Saxolj97-45-1331 Telephone encounter Note* Telephone Encounter - Lynda Rasheed MD - 07/11/2022 4:56 PM EDT No [address]Eawnju30-43-2342 Telephone encounter Note* Telephone Encounter - Clarita Coppola LPN - 07/11/2022 4:16 PM EDT Is there more to #3? [address]Bpdsol45-72-8956 Telephone encounter Note* Telephone Encounter - Lynda Rasheed MD - 07/11/2022 3:47 PM EDT 1. X-ray of the shoulder is normal #2 Sugar is elevated add an A1c. Cholesterol is improving however still elevated. Low-fat diet and exercise recommend medication called Crestor let me know if okay to send in. [id number] Telephone encounter Note* Telephone Encounter - Lakia Damon MA - 07/11/2022 11:24 AM EDT Can not get though on patients phone. Please read results to pt if he calls in. [id number] Miscellaneous Notes* Telephone Encounter - Lakia Damon MA - 07/11/2022 11:24 AM EDT Can not get though on patients phone. Please read results to pt if he calls in. * Telephone Encounter - Lynda Rasheed MD - 07/11/2022 9:45 AM EDT Xray of the back shows arthritis, if patient in still in pain I would recommend physical theray. Let me know if patient would like. documented in this [facility]04-12-2023 Telephone encounter Note* Telephone Encounter - Lynda Rasheed MD - 07/11/2022 9:45 AM EDT Xray of the back shows arthritis, if patient in still in pain I would recommend physical theray. Let me know if patient would like. [facility] [id number] History of Present illness Narrative* Lynda Rasheed MD - 06/12/2022 10:00 AM EDT Images from the original note were not included. [facility] [address] [facility] [address] Dept: [phone] Dept Loc: [phone] Reason for Visit: Annual Exam and Shoulder [...] 2 times daily., Starting Sat06/12/2022, Normal - [facility] 4. Lumbar back pain suzanne physical therapy - XR lumbar spine complete 4+ views 5. Screening for colon cancer - [facility] General Surgery - Sotero Madsen MD - PSA Screening 6. Chronic pain of both shoulders - XR shoulder 2+ views right 7. Alcohol abuse Again I offered patient to get set up for referral to [facility] addiction program at this time he would like to hold off. He is interested in possibly getting involved with a group through [place] for alcohol. He states that he will call and get this scheduled I strongly encouraged this toget done. current treatment plan is effective, no [...] possibly join an outpatient intense treatment in [place]. He states he will call and get [...] pain. He states the he was in longterm for approximately 6 months he slept on [...] COLONOSCOPY 06/10/2020 EGD/Dr Madison/[facility] CYST REMOVAL face UPPER GASTROINTESTINAL ENDOSCOPY 09/27/2021 normal WISDOM TOOTH EXTRACTION Family History Problem Relation Name Age of Onset Depression Sister Cancer Mother colon rectal cancer; dx after age 50 Other (15095) Mother alcoholism Other (12592) Father h/o rheumatic fever, cardiac arrest due to bee sting Other (24889) Sister agoraphobia Health Maintenance Topic Date Due [...] Radiology ACCESSION EXAM DATE/TIME PROCEDURE ORDERING PROVIDER [id number] 09/26/2021 19:48 EDT CR Chest Portable 204183 -DIPESH BECKMAN CPT code 71818 Reason For Exam (CR Chest Portable) epigastric [...] provider. Lynda Rasheed MD documented in this [facility]07-01-2022 NoteHospitalist Discharge Summary Maria De Jesus Hogan : [...] MD Division of Hospitalist Medicine Inpatient Medical Services/[facility] 09/29/2021, 2:37 [facility]07-01-2022 History of Present illness Narrative* Katherine Gotti MD - 09/29/2021 10:50 AM EDT [facility] Attending GI Progress Note [...] injection 1 mg 1 mg IntraVENous Q1H PRN Sherin Salcido MD 1 mg at 09/28/21 1020 Or LORazepam (ATIVAN) tablet 2 mg 2 mg Oral Q1H PRN Sherni Salcido MD Or LORazepam (ATIVAN) injection 2 mg 2 mg IntraVENous Q1H PRN Sherin Salcido MD 2 mg at 09/28/21 2343 [...] tablet 40 mg 40 mg Oral QAM ELISABETH Gotti MD 40 mg at 09/29/21 0336 [...] reviewed with the patient. CBC: Recent Labs 09/26/21193709/27/212 09/29/21 0243 WBC 4.2 -- 4.0 HGB [...] shhoul have opt viral immune serologies, etc. [facility] outpatient Will sign off, available if needed * Redd Teixeira MD - 09/28/2021 2:56 PM EDT Images from the original note were not included. Hospitalist Progress Note 09/28/2021 [phone]: Please page me [phone]) for patient care issues. [phone]: Please page [facility] night Hospitalist for any issues. [...] Depression Hypertension Insomnia LABS: CBC: Recent Labs 09/26/21193709/27/21141 WBC 4.2 -- RBC 4.95 -- HGB 16.8 14.7 HCT 45.9 43.0 MCV 92.7 -- RDW 13.3 -- PLT 189 -- BMP: Recent Labs 06/28/22 1938 NA 133* K 4.0 CL 94* CO2 [...] without any focal sensory/motor deficits. Cranial nerves: II-XIIintact, grossly non-focal. Medications: sodium chloride sodium chloride [...] MD Division of Hospitalist Medicine Inpatient Medical Services/[facility] PAGER: [phone] * Katherine Gotti MD - 09/28/2021 12:05 PM EDT [facility] Attending GI Progress Note SUBJECTIVE: Pain resolved, no further hematemesis Medications Current Facility-Administered Medications Medication Dose Route Frequency Provider Last Rate Last Admin sodium chloride flush 0.9 % injection 5-40 mL 5-40 mL IntraVENous 2 times per day Sherin Salcido MD 10 mL at 09/27/21 0148 sodium chloride flush 0.9 % injection 5-40 mL 5-40 mL IntraVENous PRN Sherin Salciod MD 0.9 % sodium chloride infusion IntraVENous [...] injection 1 mg 1 mg IntraVENous Q1H PRN Sherin Salcido MD 1 mg at 09/28/21 1020 Or LORazepam (ATIVAN) tablet 2 mg 2 mg Oral Q1H PRN Sherin Salcido MD Or LORazepam (ATIVAN) injection 2 mg 2 mg IntraVENous Q1H PRN Sherin Salcido MD 2 mg at 09/27/21 0822 [...] tablet 40 mg 40 mg Oral QAM ELISABETH Gotti MD 40 mg at 09/28/21 0630 [...] - repeat, further w/u if remains elevated * Bryan Rodriguez MD - 09/28/2021 10:42 AM EDT CD Progress note: Chief complaint My note Patient continues to be monitored by chemical dependency services. Patient remains on [id number] mg IV every 4 hours, lorazepam as [...] Friends and Family: Not on file Attends Taoist Services: Not on file Active Member of [...] injection 1 mg 1 mg IntraVENous Q1H PRN Sherin Salcido MD 1 mg at 09/28/21 1020 Or LORazepam (ATIVAN) tablet 2 mg 2 mg Oral Q1H PRN Sherin Salcido MD Or LORazepam (ATIVAN) injection 2 mg 2 mg IntraVENous Q1H PRN Sherin Salcido MD 2 mg at 09/27/21 0822 [...] 16 Ht 5' 11 (1.803 m) Wt 203lb 11.3 oz (92.4 kg) SpO2 96% BMI [...] candidate for the outpatient BRYAN RODRIGUEZ MD, 09/28/2021 at 10:42 AM Over 51% of 35 minutes were spent evaluating the patient, entering orders, coordinating care with the treatment team, and creating a progress note. * Radha Palma - 09/28/2021 8:38 AM EDT Nutrition rescreen completed. Patient assigned a level 1. * BENNIE Fatima - 09/27/2021 2:08 PM EDT Social Work consulted to follow for possible rehab need or treatment resources. Patient is being followed closely by Addiction Medicine. He has attended out patient treatment in the past at [facility] and [facility] per Dr. Stokes notes. Patient is actively in withdrawal at this time per doctors notes. Will continue to follow as needed and patient permits. * Soco Coley RN - 09/27/2021 1:33 PM EDT POST ENDOSCOPY PROCEDURE TRANSFER REPORT Procedure completed: EGD Findings:mild esophagitis at distal esophagus/Barretts esophagus Specimens obtained: none Medications administered: 220 propofol and 2 mg versed Additional Info: states mild H/A ,denies other pain ,abdomen soft,vss/o22l/nc continued o2 sat on room air 90-91%.. 100% with o2 For additional Questions please call Endoscopy at [phone]. Thank You! documented in this [facility] Work Phone: 1(386) 289-209503-11-2022 [facility] Discharge Summary with Discharge DayProgress Note and [...] Your Medications These medications were sent to [facility] [address] - P [phone] - F [phone] [address] [facility] [address] ? amLODIPine 5 MG tablet ? pantoprazole 40 MG tablet ? predniSONE 10 MG tablet DIET: regular ACTIVITY: resum (more content not included)...[facility]03-11-2022 Hospital Discharge instructions* Discharge Instr - Activity* Lauren Alexander RN - 06/09/2021 3:05 PM EST As tolerated * Discharge Instr - Diet* Lauren Alexander RN - 06/09/2021 3:05 PM [...] most local grocery stores, pharmacies, and chain super-stores. If you have any questions about your diet or nutrition, call the hospital and ask for the dietitian. * Additional Instructions* Jonatan Mckeon MD - 06/09/2021 Images from the original note were not included. [facility]GRAMS Addiction Medicine [facility] [phone] [place]: [phone] [place]: [phone] [place]: [phone] Behavioral Health Intensive Outpatient Program [facility]: [phone] [place]: [phone] [facility] [place]: [phone] [place]: [phone] Partial Hospitalization Program [facility]: [phone] Traumatic Stress Center [facility]: [phone] [facility]: [phone] (must enroll in IOP first) Alcoholics Anonymous Meetings [email or web address] * Attachments The following attachments cannot be sent through Care Everywhere. * 9 Ways to Cut Back on Drinking: Quick List (Mongolian) * naltrexone (injection) (Mongolian) documented in this encounterSUMMA Work Phone: [phone]) 762-498603-11-2022 Hospital course Narrative* Rob Lopez, DO - 06/09/2021 2:56 PM EST Images from the original note were not included. [facility] Discharge Summary with Discharge DayProgress Note [...] Your Medications These medications were sent to [facility] [address] - [phone] - F [phone] [address] [facility] [address] amLODIPine 5 MG tablet pantoprazole 40 MG tablet predniSONE 10 MG tablet DIET: regular ACTIVITY: resume regular activity SIGNIFICANT DIAGNOSTIC STUDIES: CT abd/pelvis: 1. Intramural gas near the cecum and ascending colon, compatible with pneumatosis coli. 2. Hepatic steatosis. 3. Additional chronic findings as above. COMPLEXITY OF FOLLOW UP: [x] Moderate Complexity: follow up within 7-14 calendar days (21343) [] Severe Complexity: follow up within 7 calendar days (57071) FOLLOW UP TESTING, PENDING RESULTS ORREFERRALS AT [...] TIME: > 30 minutes documented in this [employer] Work Phone: 1(861) 621-619003-11-2022 History of Present illness Narrative* Jonatan Mckeon MD - 06/09/2021 12:28 PM EST Images from the original note were [...] 156/122 Pulse: 78 88 88 Resp: 16 20 18 18 Temp: 96.7 F (35.9 C) [...] LORazepam OR LORazepam OR LORazepam OR LORazepam ORLORazepam OR LORazepam OR LORazepam OR LORazepam Recent Imaging: CT Abdomen Pelvis W Contrast Result Date: 06/06/2021 Patient Name: MARIA DE JESUS HOGAN Computed Tomography ACCESSION EXAM DATE/TIME PROCEDURE ORDERING PROVIDER [id number] 06/06/2021 17:[address] Abdomen/Pelvis w/ IV 156500 CATALINO ROTH Contrast (IV Onl CPT code 12543 Q9967 Reason For Exam (CT Abdomen/Pelvis w/IV Contrast (IV Onl) abd pain, ugib Report [...] the levels of the lung bases through thepelvis during dynamic infusion of 75 ml of intravenous Isovue 370. Images were reformatted in coronal and sagittal projections using the raw CT data and were interpreted in conjunction with the axialimages to render the findings listed below. Before infusion of intravenous contrast, radiology perso nnel investigated the possibility of an allergic history [...] dilation. Gallbladder appears normal. Spleen: Unremarkable. Pancreas: Unremarkable.Adrenal glands: Unremarkable. Kidneys, ureters and bladder: No hydronephrosis or nephrolithiasis. The urinary bladder is unremarkable in Computed Tomography Report appearance. Abdominal and pelvic vasculature: Atherosclerotic vascular calcifications are present. Gastrointestinal: Intramural gas is present in the cecal and ascending colonic wall gas (series 2, image [id number]). Colonic diverticulosisis present without evidence of diverticulitis. There is no evidence of obstruction. No pericecal inflammation to suggest acute appendicitis. Peritoneum, retroperitoneum and mesentery: No free fluid or free air. Lymph nodes: No abdominal or pelvic lymphadenopathy is evident. Solid pelvic viscera: Unremarkable. Visualized musculoskeletal structures: Multilevel spondylosis is present. There are degen erative changes of the sacroiliac joints bilaterally. No [...] 24 hour(s)). Lab trends: CBC: Recent Labs 06/06/21164406/06/21164406/07/2122006/07/21 1320 06/08/21 0119 WBC 4.8 -- 3.9 -- 4.0 HGB 17.0 < > 15.3 14.4 13.3 PLT 271 -- 195 -- 163 MCV 95.6 -- 98.1* -- 98.7* RDW 13.6 -- 14.1 -- 13.8 < > = values in this interval not displayed. BMP: Recent Labs 06/06/21164406/07/2122006/08/21 011 NA 133* 130* 130* K 4.1 3.5 4.0 CL 95* 94* 95* CO2 25 26 30 BUN 7 6* 6* CREATININE 0.73 0.72 0.62 CALCIUM 9.2 8.5 8.1* MG 2.0 1.9 -- Liver Profile: Recent Labs 06/06/21164406/07/21220 AST 191* 104* ALT 197* 144* BILITOT 0.7 0.6 ALKPHOS 101 92 LABALBU 4.6 4.2 PROT 7.8 7.0 LIPASE 197 -- INR 1.0 -- Glucose: Recent Labs 06/06/21164406/07/2122006/08/21 0119 GLUCOSE 105* 133* 151* Lactic Acid: Recent Labs 06/07/2122006/07/21 1320 LACTA 2.6* 0.8 Cardiac Injury Profile: [...] - labs/tests/tasks to review: H/H, pain. - sales representative consultant recommendations: GI. - final plan for further addiction treatment at: not interested in formal chem dep treatment. May be interested in going to 12 step meetings. Signing off. Patient does not have to stay for phenobarbital taper to completely finish if his symptoms are minimal. This can be per primary discretion. Please contact optimization consultant ADM doctor with any issues. Jonatan Mckeon MD Addiction Medicine 06/09/2021 at 12:34 PM I spent over 51% of total time 25 minutes counseling or coordinating care regarding patient's chemical dependency status. * Robyn Edmond APRN - PARADI TENDER - 06/08/2021 4:24 PM EST Addiction Team Consultation Progress Note JUNE 08, 2021; Assessment to monitor w/drawal from alcohol complicated by multiple medical issues: Lombardo's esophagitis CVA TIAs HTN GI bleed General: When seen, awake fully oriented to person, place, time, situation; coherent, lucid Pleasant mood with congruent affect Eating lunch vigorously as he'd been NPO for this AM's EDG (which showed area of bleeding which wascauterized) Withdrawal Assessment No tremors or diaphoresis; much [...] hospital Continue recommending/encouraging AA Meeting attendanc Robyn Edmond DNP, APRN [facility] * Rob Lopez DO - 06/08/2021 2:02 PM EST Images from the original note were not included. [facility] Progress Note Maria De Jesus Hogan [...] 0525 octreotide (SandoSTATIN) infusion 50 mcg/hr (06/08/21 05) PRN Meds:sodium chloride flush, sodium chloride, albuterol [...] reports 6AM-6PM please page: 6PM-6AM please page: [facility] Internal Medicine * Dani Bojorquez DO - 06/08/2021 12:21 PM EST Images from the original note were [...] to questions appropriately Data: CBC: Recent Labs 06/06/21 1645 06/06/21 1645 06/07/21 0221 06/07/21 1320 06/08/21 0119 WBC 4.8 -- 3.9 -- 4.0 HGB 17.0 < > 15.3 14.4 13.3 HCT 49.2 < > 45.3 42.5 40.0 PLT 271 -- 195 -- 163 < > = values in this interval not displayed. BMP: Recent Labs 06/06/21 16406/07/21 0221 06/08/21 0119 NA 133* 130* 130* K 4.1 3.5 4.0 CL 95* 94* 95* CO2 25 26 30 BUN 7 6* 6* CREATININE 0.73 0.72 0.62 GLUCOSE 105* 133* 151* Hepatic: Recent Labs 06/06/21 1645 06/07/21 0221 AST 191* 104* ALT 197* 144* [...] any questions/concerns. DW attending, Dr. Bojorquez. Keshia Gomez MD Surgery PGY-1 #[id number] PAGING: From -6p (- weekends): Page me at [phone] From 6p-6a (- weekends): - Surg ICU Patients: Page [phone] - Surg Floor Patients: Page [phone] ATTESTATION The patient was seen and examined. I have reviewed the patients presentation, histories, imaging and serology studies. I agree with the above assessment and plan. Ab: Soft, Non-distended, non-tender Patient is doing well this afternoon. His pain is well controlled. He denies nausea or vomiting andis actively eating a regular diet. The findings [...] I have also reviewed and agree with thepast medical, family and social history unless otherwise [...] 2. Acute alcoholic intoxication with complication (HCC) * Rosalee Saavedra RN - 06/08/2021 10:57 AM EST POST ENDOSCOPY PROCEDURE TRANSFER REPORT Physician: Dr. Wei Procedure completed: EGD Specimens obtained: Distal esophagus Medications administered: see anesthesia note Findings: see MD note Complications: none Report called and given to TISH Newton Please call the Main Endoscopy Dept at [phone] for questions. * Jazmín Wei MD - 06/08/2021 10:41 AM EST Images from the original note were not included. Endoscopic procedure was performed today. Please see the media section for procedural findings and recommendations. Can resume regular diet from upper GI perspective. * Jazmín Wei MD - 06/08/2021 10:24 AM EST GASTROENTEROLOGY PHYSICIAN PRE PROCEDURE NOTE HPI: Maria [...] without symptoms, will use C02 for exam. Sajnuana GALVEZ Gastroenterology * Rob Lopez DO - 06/07/2021 1:17 PM EST Assuming care of this patient. H&P by director product management after midnight was reviewed. General surgery and ADM consults noted. GI eval pending. Appreciate consultants. Phenobarbital ordered per ADM rec's.Discussed with RN and general surgery resident, Dr Gomez. * Jocelyn Sanchez MS, RD, LD - 06/07/2021 1:09 PM EST Comprehensive Nutrition Assessment Type and Reason for Visit: Initial,Positive Nutrition Screen (Weight loss, Decreased appetite) Nutrition Recommendations/Plan: 1. Noted plan likely for EGD this admit, pt otherwise remains NPO currently; once PO intake indicated/appropriate, suggest initiating Clear Liquid diet, with slow advancement to likely goal of GI [place]/GERD with GI Soft component, monitoring pt's tolerance; [...] (6 to 8 24-ounce beers daily per chart),HTN & CVA presented as a transfer from [facility] ED for need of higher level of care. Pt had been in his usual state of health prior to presentation to [place] facility, noticed while he was drinking that he began coughing violently and observed bright red blood in his vomit in modera te amounts; several minutes later pt also had BM which contained bright red blood; appears pt denied any other overt symptoms, had only been alarmed by blood so presented to ED. VS upon presentation indicated pt was normotensive ot hypertensive, tachycardia also noted, rest of VS were WNL, labs reviewed and ethanol level was 0.364, LFTs elevated and pt then transferred to [facility]. 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 ADM consulted here as well as General Surgery (for input as CT imaging had noted pneumatosis on the ascending colon and cecum), PPI and octreotide were started here, no surgical intervention warranted, pt notedto need colonscopy after discharge. NPO status remains. [...] and snoring at time of RD visit, [facility]. Malnutrition Assessment: Malnutrition Status: Insufficient data (? 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, currently pt NPO pending GI recs/work-up, per chart appears pt himself has reported weight fluctuations/loss (of upwards 20#') when drinking more heavily, most weight hx in chart appears stated, no overt severe losses observed) Estimated Daily Nutrient Needs: Energy (kcal): 7520-5144 kcal/day; Weight Used for Energy Requirements: [place] Protein (g): 78-94 gm protein/day; Weight Used for Protein Requirements: [place] (1.0-1.2 gm protein/kg) Fluid (ml/day): per MD; Method Used for Fluid Requirements: Nutrition Related Findings: s/p CTAP this admit, +BS, last BM 06/06; No edema indicated; medications include MVI, thiamin, folic acid; labs: Sodium (130), Glucose (133), AST/ALT ^ Wounds: (Dereje 23) Current Nutrition Therapies: Diet NPO Anthropometric Measures: Height: 5' 11 (180.3 cm) Current Body Weight: (bedscale would not record a weight) Admission Body Weight: 210 lb (95.3 kg) (stated, then 205# also documented) Usual Body Weight: (per EPIC: 03/13/21- 214#, 09/13/20- 226#, 06/09/20- 200# (stated); appears pt reports large fluctuations in weight when drinking more heavily)) [place] Body Weight: 172 lbs; % [place] Body Weight BMI: 28.59 Adjusted Body Weight: [...] Too soon to determine Contact: pager [phone] * Dani Bojorquez, DO - 06/07/2021 10:35 AM EST Images from the original note [...] per primary WDW attending, Dr. Bojorquez. Keshia Gomez MD Surgery PGY-1 #[id number] PAGING: From - (-s): Page sd at [phone] From - (-s): - Surg ICU Patients: Page [phone] [...] I have also reviewed and agree with thepast medical, family and social history unless otherwise noted and personally reviewed the imaging and labs. This note may be a delayed entry. All of the patient's questions were answered. The patient was seen and examined independently and relevant data reviewed by myself. A full chart review was performed. documented in this encounterSUMMA Work Phone: Discharge summary Author Bryan Cox [facility] Note Date/Time September 20, 2024 10:2 1am [facility] Medical Records Department [address] [place] [address] Discharge Summary 09/20/24 1017 MR#: [id number] Acct: [id number] Name: MARIA DE JESUS HOGAN Rep #:[id number] : 1965 58 From: Bryan Cox DO PCP: OUT OF TOWN DOCTOR Status:ADM IN Location: [facility] AO660-5 Providers Date of Admission: 09/17/24 Primary Care Physician: Out of Town Doctor Reason For Visit: ACUTE ETOH INTOXICATION WITH CHRONIC ETOH ABUSE Diagnosis Discharge Diagnosis (1) Alcohol withdrawal: Status: Acute Code(s): F10.239 - Alcohol dependence with withdrawal, unspecified Plan: Thus far uncomplicated. Continue with phenobarbital taper. Continue with thiamine and folate. Patient to follow-up with pedro Hoyt for IOP. Medications at Discharge Home Medications cyclobenzaprine 10 mg tablet 10 mg PO QHS muscle spasm 09/17/24 gabapentin 300 mg capsule 600 mg PO TID 09/17/24 melatonin 5 mg tablet 5 mg PO QHS 09/17/24 omeprazole 20 mg tablet,delayed release 20 mg PO DAILY 09/17/24 multivitamin (Daily Multi-Vitamin tablet) 1 tab PO DAILY #30 tabs 09/20/24 Hospital Course Operations None Procedures None Summary of Care Provided Hospital Course: Patient admitted for acute alcohol withdrawal treatment. His treatment was uncomplicated and patient was on phenobarbital taper. Patient will be discharged home. Patient plans to follow-up with pedro Hoyt [facility]. Weight / BMI Weight Weight: 98.5 kg Body Mass Index (BMI) 30.2 ABG / Lab / Microbiology Data 09/18/24 05:56 09/18/24 05:56 D/C Instructions Discharge Diet: No restrictions DC O2, CPAP, BIPAP Needs Home O2 Discharge instructions: No Meaningful Use Info Meaningful Use Meaningful Use Diagnoses (Choose all that apply): None applicable Ischemic Stroke Statin Dosing Therapy Reference: STATIN DOSE THERAPY REFERENCE: * Patients > 75 years receive moderate or high dose statin therapy. * Patients 75 years or YOUNGER should receive HIGH intensity statin dose unless contraindicated. You will be required to document reason for non-treatment if statin daily dose does not meet guidelines. HIGH DOSE STATIN THERAPY DAILY Atorvastatin > than or = to 40 mg Rosuvastatin > than or = to 20 mg Amlodipine + Atorvastatin > than or = to 2.5/40 mg Ezetimibe + Simvastatin 10/80 mg Simvastatin 80mg Discharge Plan Admission Admit Date/Time: 09/17/24 20:05 Primary Reason for Your Visit: alcohol withdrawal. Attending Provider: Bryan Cox Primary Care Provider: Kellee Lawler,Out of Consulting Providers: Joon Vinson Discharge Orders/Prescriptions Prescriptions: New multivitamin [Daily Multi-Vitamin] Tablet 1 tab PO DAILY Qty: 30 0RF Rx Instructions: Fmec-uen-[id number]. No prescription required. Continued cyclobenzaprine 10 mg tablet 10 mg PO QHS gabapentin 300 mg capsule 600 mg PO TID melatonin 5 mg tablet 5 mg PO QHS omeprazole 20 mg tablet,delayed release (DR/EC) 20 mg PO DAILY Referrals / Follow Up: Kellee Lawler,Out of [Primary Care Provider] - Disposition Disposition (needs filled in before D/C Order can be placed): Home, Self Care Charges/Coding Visit Charges Inpatient E&M: 08926 Disch Hosp 09/20/24 1021 <Electronically signed by Bryan Cox DO> Cosigner Signature (if applicable): CC: Dr. Bryan Cox, DO~ Signed [facility] Work Phone: Evaluation note* Diagnosis Colon cancer screening Special screening for [...] in right shoulder [facility] Diagnosis Chronic left shoulder pain Pain in joint, shoulder region Elevated liver enzymes Other nonspecific abnormal serum enzyme levels Psoriasis Other psoriasis [facility]* Diagnosis Chronic left shoulder pain Pain in joint, shoulder region [facility]* Diagnosis Hyperglycemia- Primary Other abnormal glucose documented [facility]* Diagnosis Hematemesis with nausea- Primary Hematemesis with nausea Alcohol withdrawal syndrome without complication (HCC) [facility]* Diagnosis Uncomplicated alcohol dependence (HCC)- Primary Elevated liver enzymes Other nonspecific abnormal serum enzyme levels Abnormal EKG Nonspecific abnormal electrocardiogram (ECG) (EKG) SOB (shortness of breath) Shortness of breath Lombardo's esophagus with dysplasia Screening for colon cancer Special screening for malignant neoplasms, colon 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 documented in this encounter [facility]* Diagnosis Alcohol use disorder- Primary Alcohol use disorder Alcohol withdrawal syndrome without complication (HCC) Alcohol withdrawal syndrome without complication (HCC) documented in this encounter [facility]* Diagnosis Elevated liver enzymes Other nonspecific abnormal serum enzyme levels documented in this encounter [facility]* Diagnosis Chronic left shoulder pain Pain in joint, shoulder region documented in this encounter [facility]* Diagnosis Chronic left shoulder pain- Primary Pain in joint, shoulder region Elevated liver enzymes Other nonspecific abnormal serum enzyme levels Psoriasis Other psoriasis Screening for colon cancer Special screening for malignant neoplasms, colon Alcohol abuse Nondependent alcohol abuse, unspecified drinking behavior documented in this encounter [facility]* Diagnosis Chronic left shoulder pain- Primary Pain in joint, shoulder region Elevated liver enzymes Other nonspecific abnormal serum enzyme levels Psoriasiform seborrheic dermatitis Other psoriasis Screening for colon cancer Special screening for malignant neoplasms, colon Alcohol abuse Nondependent alcohol abuse, unspecified drinking behavior documented in this [facility]* Diagnosis Abnormal levels of other serum enzymes- Primary documented in this encounter [facility]* Diagnosis Low back pain, unspecified- Primary Pain in left shoulder Other chronic pain Pain in right shoulder Low back pain, unspecified Pain in left shoulder Other chronic pain Pain in right shoulder documented [facility]* Diagnosis Alcohol use disorder, severe (HCC)- Primary Alcohol withdrawal syndrome with complication (HCC) Encounter for monitoring naltrexone therapy documented in this encounter [facility]* Diagnosis Hyperglycemia- Primary Other abnormal glucose Abnormal CBC Other abnormal blood chemistry documented in this encounter [facility]* Diagnosis Screening for colon cancer- Primary Special screening for malignant neoplasms, colon Lombardo's esophagus determined by endoscopy Psoriasiform seborrheic dermatitis Other psoriasis Alcohol use disorder, severe (HCC) Lumbar back pain with radiculopathy affecting lower extremity Cigarette smoker Tobacco use disorder documented in this encounter [facility]* Diagnosis Abnormal levels of other serum enzymes- Primary documented in this encounter [facility]* Diagnosis Chronic left shoulder pain Pain in joint, shoulder region documented in this encounter [facility] note* Diagnosis Hyperglycemia, unspecified- Primary Other specified abnormal findings of blood chemistry documented in this encounter [facility] note* Diagnosis Alcohol withdrawal syndrome without complication (HCC)- Primary Alcoholism (CMS/HCC) (HCC) Other and unspecified alcohol dependence, unspecified drinking behavior Alcohol withdrawal syndrome without complication (HCC) Severe alcohol use disorder (HCC) Cigarette smoker Tobacco use disorder documented in this encounter [facility] note* Diagnosis Pain, dental- Primary documented in this encounter [facility] note* Diagnosis Dental abscess- Primary Periapical abscess without sinus documented in this encounter [facility] note* Diagnosis Contusion of left middle finger without damage to nail, initial encounter- Primary documented in this encounter [facility] note* Diagnosis Chronic left shoulder pain Pain in joint, shoulder region documented in this encounter [facility] note* Diagnosis Alcohol withdrawal syndrome, uncomplicated (HCC)- Primary Alcohol withdrawal syndrome, uncomplicated (HCC) documented in this encounter [facility] note* Diagnosis Psoriasiform seborrheic dermatitis Other psoriasis documented in this encounter [facility] note* Diagnosis Alcohol withdrawal syndrome without complication (HCC)- Primary Alcohol abuse Nondependent alcohol abuse, unspecified drinking behavior Severe alcohol use disorder (HCC) Cigarette smoker Tobacco use disorder [facility] Diagnosis Chronic left shoulder pain Pain in joint, shoulder region [facility] Diagnosis Alcohol withdrawal syndrome without complication (HCC)- Primary Alcohol withdrawal syndrome without complication (HCC) Chronic left shoulder pain Pain in joint, shoulder region Severe alcohol use disorder (HCC) documented in this encounter [facility] note* Diagnosis Chronic left shoulder pain Pain in joint, shoulder region [facility] Diagnosis 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)- Primary 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) documented in this encounter [facility] note* Diagnosis Chronic left shoulder pain Pain in joint, shoulder region documented in this encounter [facility] note* Diagnosis Alcohol withdrawal with inpatient treatment without complication (HCC)- Primary Alcohol abuse Nondependent alcohol abuse, unspecified drinking behavior Severe alcohol use disorder (HCC) documented in this encounter [facility] note* Diagnosis Severe alcohol use disorder (HCC) documented in this encounter [facility]* Diagnosis Screening PSA (prostate specific antigen)- Primary Special screening for malignant neoplasm of prostate Psoriasiform seborrheic dermatitis Other psoriasis Elevated liver enzymes Other nonspecific abnormal serum enzyme levels Screening for colon cancer Special screening for malignant neoplasms, colon Current smoker documented in this encounter [facility]* Diagnosis Current smoker [facility]* Diagnosis Pulmonary nodule- Primary Other diseases of lung, not elsewhere classified documented in this encounter [facility]* Diagnosis Pulmonary emphysema, unspecified emphysema type (HCC)- Primary Pulmonary nodule Other diseases of lung, not elsewhere classified Cigarette nicotine dependence with other nicotine-induced disorder Alcohol abuse Nondependent alcohol abuse, unspecified drinking behavior documented in this encounter [facility]* Diagnosis Elevated liver enzymes- Primary Other nonspecific abnormal serum enzyme levels Chronic left shoulder pain Pain in joint, shoulder region Psoriasis Other psoriasis Lumbar back pain Lumbago Screening for colon cancer Special screening for malignant neoplasms, colon Chronic pain of both shoulders Alcohol abuse Nondependent alcohol abuse, unspecified drinking behavior documented in this encounter [facility]* Diagnosis Alcoholic intoxication without complication (CMS/HCC) (HCC)- Primary Alcoholic intoxication without complication (CMS/HCC) (HCC) documented in this encounter [facility]* Diagnosis Alcohol withdrawal syndrome with complication, with unspecified complication (HCC)- Primary Alcohol use disorder Alcohol withdrawal syndrome with complication, with unspecified complication (HCC) Severe alcohol use disorder (HCC) 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 Cigarette smoker Tobacco use disorder Elevated liver enzymes Other nonspecific abnormal serum enzyme levels documented in this encounter [facility]* Diagnosis Alcohol abuse- Primary Nondependent alcohol [...] esophagus with esophagitis documented in this encounter [facility]* Diagnosis Closed head injury, initial encounter- Primary Alcoholic intoxication without complication (CMS/HCC) (HCC) documented in this encounter [facility]* Diagnosis Psoriasiform seborrheic dermatitis Other psoriasis Elevated liver enzymes Other nonspecific abnormal serum enzyme levels documented [facility]* Diagnosis Alcohol withdrawal with inpatient treatment, uncomplicated (HCC)- Primary Alcohol use disorder Alcohol withdrawal with inpatient treatment, uncomplicated (HCC) Severe alcohol use disorder (HCC) Severe alcohol use disorder (HCC) documented [facility]* Diagnosis Pulmonary nodule Other diseases of lung, not elsewhere classified documented in this encounter [facility]* Diagnosis Elevated LFTs- Primary Other abnormal [...] unspecified drinking behavior documented [facility]* Diagnosis Psoriasiform seborrheic dermatitis Other psoriasis Elevated liver enzymes Other nonspecific abnormal serum enzyme levels documented [facility]* Diagnosis Subcutaneous hematoma- Primary Contusion of dorsum of foot documented in this [facility]* Diagnosis Alcohol withdrawal syndrome with complication (HCC)- Primary Alcohol dependence with inpatient treatment (HCC) Herpes zoster without complication Alcohol withdrawal syndrome without complication (HCC) 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 Severe alcohol use disorder (HCC) 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 Cigarette smoker Tobacco use disorder 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 documented in [facility]* Diagnosis Acute pain associated with herpes zoster- Primary documented in this [facility]* Diagnosis Screening for colon cancer- Primary Special screening for malignant neoplasms, colon Psoriasiform seborrheic dermatitis Other psoriasis Elevated liver enzymes Other nonspecific abnormal serum enzyme levels Neuropathy Mononeuritis of unspecified site Herpes zoster with other complication 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 documented in this [facility]* Diagnosis Onset Date Resolution Status Admit Date Acute alcohol intoxication acute September 17, 2024 8:05pm Alcoholic hepatitis acute September 17, 2024 8:05pm Desire for detoxification acute September 17, 2024 8:05pm Obesity (BMI 30.0-34.9) acute J une 2024 8:05pm Alcohol abuse chronic September 17, 2024 8:05pm Tobacco dependence chronic August 302024 8:05pm COPD (chronic obstructive pulmonary disease) suspected September 17 8:05pm [facility] Work Phone: Hospital Discharge instructions* Attachments The following attachments cannot be sent through Care Everywhere. * Back: Strain (Mongolian) documented in this [facility] Work Phone: Hospital Discharge instructions* Attachments The following attachments cannot be sent through Care Everywhere. * Acute Pain Discharge Instructions, Adult (Mongolian) documented in this [facility] Discharge instructions* Attachments The following attachments cannot be sent through Care Everywhere. * Alcohol Use Disorder Discharge Instructions (Mongolian) documented in this [facility] Discharge instructions* Attachments The following attachments cannot be sent through Care Everywhere. * Contusion Discharge Instructions (Mongolian) documented in this [facility] for referral (narrative)* Consultation (Routine) - Pending Review Specialty Diagnoses / Procedures Referred By Carmen patton Referred To Contact Urology Diagnoses ED (erectile dysfunction) of non-organic origin Procedures [place] OFFICE/OUTPATIENT [facility] MDM 60-74 MINUTES Lynda Rasheed MD [address] [place] [id number] [facility] [address] [place] [address] [place] [phone] Referral ID Status Reason Start Date Expiration Date Visits Requested Visits Authorized [id number] Pending Review Specialty Services Required 08/01/2022 08/01/2023 1 1 * Consultation (Routine) - Pending Review Specialty Diagnoses / Procedures Referred By Carmen patton Referred To Contact Gastroenterology Diagnoses Elevated liver enzymes Lombardo's esophagus with dysplasia Screening for colon cancer Procedures RI OFFICE/OUTPATIENT [facility] MDM 60-74 MINUTES Lynda Rasheed MD [address] [place] [id number] [facility] [address] [place] [address] Referral ID Status Reason Start Date Expiration Date Visits Requested Visits Authorized [id number] Pending Review Specialty Services Required 08/01/2022 08/01/2023 1 1 * (Routine) - Incomplete Specialty Diagnoses / Procedures Referred By Contac t Referred To Contact Diagnoses SOB (shortness of breath) Procedures Complete PFT study Lynda Rasheed MD [address] [place] [id number] Referral ID Status Reason Start Date Expiration Date V isits Requested Visits Authorized [id number] Incomplete 08/01/2022 01/28/2023 1 1 * Imaging (Routine) - Pending Review Specialty Diagnoses / Procedures Referred By Contac t Referred To Contact Cardiology Diagnoses Abnormal EKG Procedures Transthoracic echocardiogram (TTE) complete with contrast, bubble, strain, and 3D PRN RI ECHO TTHRC R-T 2D W/WOM-MODE COMPL SPEC&COLR D RI TTE W OR WO FOL WCON,Lynda Ruffin MD [address] [place] [id number] Referral ID Status Reason Start Date Expiration Date Visits Requested Visits Authorized [id number] Pending Review Perform Procedure 08/01/2022 01/28/2023 1 1 * Consultation (Routine) - Pending Review Specialty Diagnoses / Procedures Referred By Contac t Referred To Contact Addiction Medicine / Addiction Support Services Diagnoses Uncomplicated alcohol dependence (HCC) Procedures RI OFFICE/OUTPATIENT [facility] MDM 60-74 MINUTES Lynda Rasheed MD [address] [place] [id number] [facility] Addiction [facility] [address] [place] [address] Referral ID Status Reason Start Date Expiration Date Visits Requested Visits Authorized [id number] Pending Review Specialty Services Required 08/01/2022 08/01/2023 1 1 Pedro Tirado for referral (narrative)* Consultation (Routine) - Pending Review Specialty Diagnoses / Procedures Referred By Contac t Referred To Contact General Surgery Diagnoses Screening for colon cancer Procedures RI OFFICE/OUTPATIENT [facility] 60-74 MINUTES Lynda Rasheed MD [address] [place] [phone] Sotero Madsen MD [address] [place] [address] [address] [place] [address] Referral ID Status Reason Start Date Expiration Date Visits Requested Visits Authorized [id number] Pending Review Specialty Services Required 09/25/2022 09/25/2023 1 1 * Medications - Closed Specialty Diagnoses / Procedures Referred By Contac t Referred To Contact Lynda Rasheed MD [address] [place] [id number] Referral ID Status Reason Start Date Expiration Date Visits Re quested Visits Authorized [id number] Closed 1 1 Pedro Tirado for referral (narrative)* Consultation (Routine) - Pending Review Specialty Diagnoses / Procedures Referred By Contac t Referred To Contact Addiction Medicine / Addiction Support Services Diagnoses Alcohol use disorder, severe (HCC) Procedures RI OFFICE/OUTPATIENT [facility] 60-74 MINUTES Papito Hood MD [address] [place] [address] [facility] [address] [place] [address] Referral ID Status Reason Start Date Expiration Date Visits Requested Visits Authorized [id number] Pending Review Specialty Services Required 10/09/2022 10/09/2023 1 1 * Medications - Pending Review Specialty Diagnoses / Procedures Referred By Contac t Referred To Contact Papito Hood MD [address] [place] [address] Referral ID Status Reason Start Date Expiration Date V isits Requested Visits Authorized [id number] Pending Review 1 1 Pedro Tirado for referral (narrative)* Consultation (Routine) - Pending Review Specialty Diagnoses / Procedures Referred By Contac t Referred To Contact General Surgery Diagnoses Screening for colon cancer Procedures RI OFFICE/OUTPATIENT [facility] MDM 60-74 MINUTES Lynda Rasheed MD [address] [place] [address] Sotero Madsen MD [address] [place] [address] Referral ID Status Reason Start Date Expiration Date Visits Requested Visits Authorized [id number] Pending Review Specialty Services Required 12/26/2022 12/26/2023 1 1 Pedro Tirado for referral (narrative)* Consultation (Routine) - Pending Review Specialty Diagnoses / Procedures Referred By Contac t Referred To Contact General Surgery Diagnoses Screening for colon cancer Procedures RI OFFICE/OUTPATIENT [facility] MDM 60-74 MINUTES Lynda Rasheed MD [address] [place] [id number] Sotero Madsen MD [address] [place] [address] Referral ID Status Reason Start Date Expiration Date Visits Requested Visits Authorized [id number] Pending Review Specialty Services Required 06/12/2022 06/12/2023 1 1 * Consultation (Routine) - Pending Review Specialty Diagnoses / Procedures Referred By Contac t Referred To Contact Dermatology Diagnoses Psoriasis Procedures RI OFFICE/OUTPATIENT [facility] MDM 60-74 MINUTES Lynda Rasheed MD [address] [place] [address] [facility] Derm [address] [facility] [address] [place] [address] Referral ID Status Reason Start Date Expiration Date Visits Requested Visits Authorized [id number] Pending Review Specialty Services Required 06/12/2022 06/12/2023 1 1 [facility] (narrative)No reason for referral information availableWMercy Health Work Phone: Reason for visit Narrative* Imaging (Routine) - Authorized Specialty Diagnoses / Procedures Referred By Contac t Referred To Contact Radiology Diagnoses Current smoker Procedures CT lung screening low dose Lynda Rasheed MD [address] [place] [address] [address] [place] [address] Phone: tel: fax: Referral ID Status Reason Start Date Expiration Date V isits Requested Visits Authorized [id number] Authorized 02/05/2024 02/04/2025 1 11 [place] [facility] Fashion[facility] for visit Narrative* Imaging (Routine) - Closed Specialty Diagnoses / Procedures Referred By Contac t Referred To Contact Radiology Diagnoses Pulmonary nodule Procedures CT chest wo IV contrast Myra Darden MD [address] [facility] [address] [place] [address] Phone: tel: fax: Referral ID Status Reason Start Date Expiration Date Visits Re quested Visits Authorized [id number] Closed 02/28/2024 02/27/2025 1 1 [facility] Summary Purpose Family History Medical History Relation Name Comments Other Father h/o rheumatic f ever, cardiac arrest due to bee sting Cancer Mother colon rectal ca ncer; dx after age 50 Other Mother alcoholism Depression Sister Other Sister agoraphobia Relation Name Status Comments Father Mother Sister Relationship Condition Age at Onset Recorded Date/T james Unknown Family History?Cancer, - Unknown Mar 6:47pm Family History?Cancer, - Unknown Jun 4:44pm Family History?Heart Disease, - Unknown July 17, 2017 4:44pm Advance Directives Date Activated Date Inactivated Comments [...] Documents on File Type Date Recorded Patient Slot Floor Attendant Expl anation Advance Directives and Living Will Power of Batch Records Clerk Documents on File Type Date Recorded Patient Slot Floor Attendant Expl anation Advance Directives and Living Will Power of Batch Records Clerk Latest Code Status on File Code Status Date Activated Date Inactivated Comments Full Code 08/31/2019 9:29 PM Latest Code Status on File Code Status Date Activated Date Inactivated Comments Full Code 10/02/2019 1:24 AM 10/05/2019 6:43 PM Full Code 08/31/2019 9:29 PM 09/02/2019 4:37 PM Documents on File Type Date Recorded Patient Slot Floor Attendant Expl anation ACP-Advance Directive ACP-Power of Batch Records Clerk Latest Code Status on File Code Status [...] Relationship Healthcare Agent Relationshi p Communication June Samira Spouse Primary Decision Maker Latest Code Status on File Code Status Date Activated Date Inactivated Comments Full Code 09/27/2021 1:07 AM Full Code 06/07/2021 12:40 AM 06/09/2021 6:37 PM Healthcare Agents on File Name Relationship Healthcare Agent Relationshi p Communication June Samira Spouse Primary Decision Maker Latest Code Status [...] Comments 01/20/2024 10:58 PM 01/24/2024 4:15 PM Advance Directive Response Recorded Date/ Time Do you have a Healthcare Power of Batch Records Clerk? No September 17, 2024 7:16pm Advance Directives No March 07, 2017 6:05pm Advance Directive Response Recorded Date/ Time Do you have a Healthcare Power of Batch Records Clerk? No September 17, 2024 9:02pm Advance Directives No March 07, 2017 6:05pm Assessments Diagnosis Mixed hyperlipidemia Eczema, unspecified type [...] sent through Care Everywhere. * Back: Strain (Mongolian) * Low Back Pain: Exercises (Mongolian) documented in this encounter* Attachments The following attachments cannot be sent through Care Everywhere. * Back Pain (Mongolian) * Sciatica (Mongolian) * Low Back Pain: Exercises (Mongolian) documented in this encounter* Attachments The following attachments cannot be sent through Care Everywhere. * Sore Throat (Mongolian) * Smoking: Stopping (Mongolian) documented in this encounter* Instructions* Eryn Perrin [...] sent through Care Everywhere. * naltrexone (injection) (Mongolian) * Alcohol Use Disorder: General Info (Mongolian) * Lombardo's Esophagus (Mongolian) documented in this encounter History of Present Illness * Herbret Clarke RN - 06/10/2020 9:15 AM EST POST ENDOSCOPY PROCEDURE TRANSFER REPORT Procedure completed: EGD Findings: Please see Dr Madison note. Specimens obtained: Biopsies Medications administered: Propofol Additional Info: Please see Dr Madison report For additional Questions please call Endoscopy at [phone]. Thank You! documented in this encounter Reason for Referral Specialty Diagnoses / Procedures Referred By Carmen patton Referred To Contact Lynda Rasheed MD [address] [place] [address] Referral ID Status Reason Start Date Expiration Date V isits Requested Visits Authorized [id number] Pending Review 1 1 Referral ID Status Reason Start Date Expiration Date Visits Re quested Visits Authorized [id number] Closed 1 1 Chief Complaint and Reason for Visit Chief Complaint Admit Date ACUTE ETOH INTOXICATION WITH CHRONIC ETO H ABUSE September 17, 2024 8:05pm Reason for Visit Admit Date Acute alcohol intoxication September 17 8:05pm Alcoholic hepatitis September 17, 2024 8:05 pm Desire for detoxification September 17 8:05pm Obesity (BMI 30.0-34.9) September 17, 2024 8:05pm Alcohol abuse September 17, 2024 8:05 pm Tobacco dependence September 17, 2024 8:05 pm COPD (chronic obstructive pulmonary dise ase) September 17, 2024 8:05pm Chief Complaint Admit Date ACUTE ETOH INTOXICATION WITH CHRONIC ETO H ABUSE September 17, 2024 8:05pm ACUTE ETOH INTOXICATION WITH CHRONIC ETO H ABUSE September 18, 2024 1:07pm ACUTE ETOH INTOXICATION WITH CHRONIC ETO H ABUSE September 19, 2024 10:50am ACUTE ETOH INTOXICATION WITH CHRONIC ETO H ABUSE September 20, 2024 10:17am Reason for Visit Admit Date Acute alcohol intoxication September 17 8:05pm Alcohol withdrawal September 17, 2024 8:05 pm Alcoholic hepatitis September 17, 2024 8:05 pm Desire for detoxification September 17 8:05pm Obesity (BMI 30.0-34.9) September 17, 2024 8:05pm Alcohol abuse September 17, 2024 8:05 pm Tobacco dependence September 17, 2024 8:05 pm COPD (chronic obstructive pulmonary dise ase) September 17, 2024 8:05pm Additional Source Comments (unrecognized sect ion and content) No Status Records FoundNo Status Records FoundNo Status Records FoundNo Status Records FoundNo Status Records FoundNo Status Records Found INFORMATION SOURCE (unrecogn ized section and content) DATE CREATED AUTHOR 01/03/2019 [facility] DATE CREATED AUTHOR AUTHOR'S ORGANIZ ATION 01/03/2019 [facility] DATE CREATED AUTHOR AUTHOR'S ORGANIZ ATION 10/28/2021 [facility] DATE CREATED AUTHOR AUTHOR'S ORGANIZ ATION 10/31/2021 [facility] DATE CREATED AUTHOR AUTHOR'S ORGANIZ ATION 09/29/2024 [facility] DATE CREATED AUTHOR AUTHOR'S ORGANIZ ATION 10/01/2024 [facility] Reason for Visit (unrecogniz ed section and [...] 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 Also reports BRB in his vomit. Specialty Diagnoses / Procedures Referred By Contac t Referred To Contact Diagnoses Alcohol withdrawal syndrome without complication (HCC) Hematemesis with nausea Procedures f10.930 Redd Teixeira MD [address] [facility] [address] [place] [address] [facility] 2e Telemetry [address] [place] [address] Referral ID Status Reason Start Date Expiration Date Visits Re quested Visits Authorized [id number] 1 1 Reason Onset Date Comments Results 07/11/2022 Reason Comments Follow-up Discuss results and COPD Specialty Diagnoses / Procedures Referred By Contac t Referred To Contact Diagnoses SOB (shortness of breath) Procedures Complete PFT study Lynda Rasheed MD [address] [place] [address] Referral ID Status Reason Start Date Expiration Date V isits Requested Visits Authorized [id number] Incomplete 08/01/2022 01/28/2023 1 1 Reason Comments Alcohol Problem Pt arrives via [facility] e wanting detox from alcohol. Pt drinks 7-9 tall beers a day. Pt hasn't been able to eat much in the past week. Pt having some nausea/vomiting. Specialty Diagnoses / Procedures Referred By Carmen patton Referred To Contact Diagnoses Alcohol withdrawal syndrome without complication (HCC) Alcohol use disorder Procedures [id number] withdrawal syndrome without complication (HCC) [id number] use disorder Bryan Rodriguez MD [address] [address] [address] [place] [address] Referral ID Status Reason Start Date Expiration Date Visits Re quested Visits Authorized [id number] 1 1 Reason Onset Date Comments Med [...] chills/sweats. Specialty Diagnoses / Procedures Referred By Carmen patton Referred To Contact Diagnoses Alcoholism (CMS/HCC) (HCC) Alcohol withdrawal syndrome without complication (HCC) Procedures . Jonatan Mckeon MD [address] [address] [address] [place] [address] Referral ID Status Reason Start Date Expiration Date Visits Re quested Visits Authorized [id number] 1 1 Reason Comments Dental Pain Reason [...] per day. 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 Specialty Diagnoses / Procedures Referred By Carmen patton Referred To Contact Diagnoses Alcohol withdrawal syndrome, uncomplicated (HCC) Procedures f10.930 Shelly Cruz MD [address] [place] [address] [facility] Emergency Dept [address] [place] [address] Referral ID Status Reason Start Date Expiration Date Visits Re quested Visits Authorized [id number] 1 1 Reason Onset Date Comments Med Refill 06/26/2023 Reason Comments Detox Pt. States he would like to come in for inpatient detox. States he has been drinking 8-9 tallboys per day since he was a teen. Pt. States he has never attempted to detox before. States last drink was less that 30mins ago. Specialty Diagnoses / Procedures Referred By Carmen patton Referred To Contact Diagnoses Alcohol abuse Procedures . Jonatan Mckeon MD [address] [address] [address] [place] [address] Referral ID Status Reason Start Date Expiration Date Visits Re quested Visits Authorized [id number] 1 1 Reason Onset Date Comments Med Refill 07/19/2023 Reason Comments Alcohol Intoxication Specialty Diagnoses / Procedures Referred By Carmen t Referred To Contact Diagnoses Alcohol withdrawal syndrome without complication (HCC) Procedures .. Bryan Rodriguez MD [address] [address] [address] [place] [address] Referral ID Status Reason Start Date Expiration Date Visits Re quested Visits Authorized [id number] 1 1 Reason Comments Med Refill Reason Comments Alcohol Problem Pt c/o ETOH abuse. S tates last drink was a couple hours. Pt states 8 tall boys a day typically. Pt states he's having difficulty thinking straight. Specialty Diagnoses / Procedures Referred By Carmen patton Referred To Contact Diagnoses 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) Procedures . Shelly Cruz MD [address] [place] [address] [facility] Emergency Dept [address] [place] [phone] Referral ID Status Reason Start Date Expiration Date Visits Re quested Visits Authorized [id number] 1 1 Reason Onset Date Comments Med Refill 12/03/2023 Reason Comments Alcohol Problem Specialty Diagnoses / Procedures Referred By Carmen t Referred To Contact Diagnoses Alcohol abuse Procedures - Luis Branch MD [address] [facility] [place] [address] Phone: tel: fax: [facility] Det[facility] [address] [place] [address] Phone: tel: Referral ID Status Reason Start Date Expiration Date Visits Re quested Visits Authorized [id number] 1 1 Reason Comments Drug / Alcohol [...] To Contact Pulmonology Diagnoses Pulmonary nodule Procedures RI OFFICE/OUTPATIENT NEW HIGH MDM 60 MINUTES Lynda Rasheed MD [address] [facility] [address] [place] [address] Phone: tel: fax: [facility] - [address] [address] Phone: tel: fax: Referral ID Status Reason Start Date Expiration Date Visits Requested Visits Authorized [id number] Pending Review Specialty Services Required 4 02/12/2025 1 1 Reason Comments Annual Exam Shoulder Pain Reason Comments Alcohol Problem Patient seeking deto x from ETOH. 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 Specialty Diagnoses / Procedures Referred By Carmen t Referred To Contact Diagnoses Alcoholic intoxication without complication (CMS/HCC) (HCC) Procedures . John Matthews MD [address] [place] [address] Phone: tel: fax: [facility] [address] [place] [address] Phone: tel: Referral ID Status Reason Start Date Expiration Date Visits Re quested Visits Authorized [id number] 1 1 Reason Comments Alcohol Problem Patient presents for detox from alcohol. 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 Patient drinks 6-9 tall boys a day. Specialty Diagnoses / Procedures Referred By Carmen patton Referred To Contact Diagnoses Alcohol withdrawal syndrome with complication, with unspecified complication (HCC) Alcohol use disorder Procedures . Jonatan Mckeon MD [address] [address] Phone: tel: fax: [facility] Detox Unit [address] [place] [address] Phone: tel: Referral ID Status Reason Start Date Expiration Date Visits Re quested Visits Authorized [id number] 1 1 Reason Comments Hospital Follow-up 05/07/24 [facility] for detox Reason Comments Fall Head [...] Procedures . Jonatan Mckeon MD [address] [address] Phone: tel: fax: [facility] Detox Unit [address] [place] [address] Phone: tel: Referral ID Status Reason Start Date Expiration Date Visits Re quested Visits Authorized [id number] 1 1 Reason Onset Date Comments Test Scheduling 06/03/2024 Reason Onset Date Comments Med Refill 06/22/2024 Reason Comments Toe Injury Dropped dresser on 4 th toe of left foot yest morning. Reason Comments Rash On abdomen Back Pain Middle of back. No k nown injury. 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 Requ esting detox Specialty Diagnoses / Procedures Referred By Contac t Referred To Contact Diagnoses Alcohol dependence with inpatient treatment (HCC) Herpes zoster without complication Alcohol withdrawal syndrome without complication (HCC) Procedures . Bryan Rodriguez MD [address] [facility] [address] [place] [address] Phone: tel: fax: [facility] Det[facility] [address] [place] [address] Phone: tel: Referral ID Status Reason Start Date Expiration Date Visits Re quested Visits Authorized [id number] 1 1 Reason Comments Rash Reason Comments Herpes Zoster Reason Onset Date Comments Med Refill 08/14/2024 Reason Onset Date Comments Medication Question 08/07/2024 Ordered Prescriptions (unrec ognized section and content) [...] Care Teams (unrecognized sec tion and content) Team Status: Active Member Role Status Dates Out of [facility] Doctor Primary Care Provider Active Team Status: Inactive Member Role Status Dates Out of [facility] Doctor Primary Care Provider Active Start: September 17, 2024 End: September 20, 2024 Dr. Doe Oh , DO Referring Provider Active Start : September 17, 2024 End: September 20, 2024 Dr. Doe Oh , DO Emergency Provider Active Start : September 17, 2024 End: September 20, 2024 Dr. Joon Vinson , DO Admit Provider Active Start: September 17, 2024 End: September 20, 2024 Dr. Joon Vinson , DO Other Provider Active Start: September 17, 2024 End: September 20, 2024 Dr. Bryan Cox , DO Attending Provider Active Start: September 17, 2024 End: September 20, 2024 Team Status: Active Member Role Status Dates Out of [facility] Doctor Primary Care Provider Active Start: September 18, 2024 Dr. Doe Oh , DO Referring Provider Active Start : September 18, 2024 Dr. Doe Oh , DO Emergency Provider Active Start : September 18, 2024 Dr. Joon Vinson , DO Admit Provider Active Start: September 18, 2024 Dr. Joon Vinson , DO Other Provider Active Start: September 18, 2024 Dr. Bryan Cox , Attending Provider Active Start: September 18, 2024 Dr. Bryan Cox , Other Provider Active Star t: September 18, 2024 Team Status: Active Member Role Status Dates Out of [facility] Doctor Primary Care Provider Active Start: September 19, 2024 Dr. Doe Oh , DO Referring Provider Active Start : September 19, 2024 Dr. Doe Oh , DO Emergency Provider Active Start : September 19, 2024 Dr. Joon Vinson , DO Admit Provider Active Start: September 19, 2024 Dr. Joon Vinson , Other Provider Active Start: September 19, 2024 Dr. Bryan Cox DO Attending Provider Active Start: September 19, 2024 Dr. Bryan Cox , Other Provider Active Star t: September 19, 2024 Team Status: Active Member Role Status Dates Out of [facility] Doctor Primary Care Provider Active Start: September 20, 2024 Dr. Doe Oh , DO Referring Provider Active Start : September 20, 2024 Dr. Doe Oh , DO Emergency Provider Active Start : September 20, 2024 Dr. Joon Vinson , DO Admit Provider Active Start: September 20, 2024 Dr. Joon Vinson , DO Other Provider Active Start: September 20, 2024 Dr. Bryan Cox , Attending Provider Active Start: September 20, 2024 Dr. Bryan Cox , DO Other Provider Active Star t: September 20, 2024 Head Tennis Coach Relationship Specialty Start Date End Date Lynda Rasheed MD [address] [place] [address] PCP - General Family Medicine 02/25/17 Head Tennis Coach Relationship Specialty Start Date End Date Lynda Rasheed MD [address] [place] [address] PCP - General Family Medicine 02/25/17 Head Tennis Coach Relationship Specialty Start Date End Date Lynda Rasheed MD [address] [place] [address] PCP - General Family Medicine 02/25/17 Head Tennis Coach Relationship Specialty Start Date End Date Lynda Rasheed MD [address] [place] [address] PCP - General 02/25/17 Head Tennis Coach Relationship Specialty Start Date End Date Lynda Rasheed MD [address] [place] [address] PCP - General 02/25/17 Head Tennis Coach Relationship Specialty Start Date End Date Lynda Rasheed MD [address] [place] [address] PCP - General 02/25/17 Head Tennis Coach Relationship Specialty Start Date End Date Lynda Rasheed MD [address] [place] [address] [place] [address] PCP - General 02/25/17 Head Tennis Coach Relationship Specialty Start Date End Date Lynda Rasheed MD [address] [place] [address] [place] [address] PCP - General 02/25/17 Head Tennis Coach Relationship Specialty Start Date End Date Lynda Rasheed MD [address] [place] [address] PCP - General 02/25/17 Head Tennis Coach Relationship Specialty Start Date End Date Lynda Rasheed MD [address] [place] [address] PCP - General 02/25/17 Head Tennis Coach Relationship Specialty Start Date End Date Lynda Rasheed MD [address] [place] [address] PCP - General 02/25/17 Head Tennis Coach Relationship Specialty Start Date End Date Lynda Rasheed MD [address] [place] [address] PCP - General 02/25/17 Head Tennis Coach Relationship Specialty Start Date End Date Lynda Rasheed MD [address] [place] [address] PCP - General 02/25/17 Head Tennis Coach Relationship Specialty Start Date End Date Lynda Rasheed MD [address] [place] [address] PCP - General 02/25/17 Head Tennis Coach Relationship Specialty Start Date End Date Lynda Rasheed MD [address] [place] [address] [place] [address] PCP - General 02/25/17 Head Tennis Coach Relationship Specialty Start Date End Date Lynda Rasheed MD [address] [place] [address] PCP - General 02/25/17 Head Tennis Coach Relationship Specialty Start Date End Date Lynda Rasheed MD [address] [place] [address] PCP - General 02/25/17 Head Tennis Coach Relationship Specialty Start Date End Date Lynda Rasheed MD [address] [place] [address] PCP - General 02/25/17 Head Tennis Coach Relationship Specialty Start Date End Date Lynda Rasheed MD [address] [place] [address] PCP - General 02/25/17 Head Tennis Coach Relationship Specialty Start Date End Date Lynda Rasheed MD [address] [place] [address] PCP - General 02/25/17 Head Tennis Coach Relationship Specialty Start Date End Date Lynda Rasheed MD [address] [place] [address] PCP - General 02/25/17 Head Tennis Coach Relationship Specialty Start Date End Date Lynda Rasheed MD [address] [place] [address] PCP - General 02/25/17 Head Tennis Coach Relationship Specialty Start Date End Date Lynda Rasheed MD [address] [place] [address] PCP - General 02/25/17 Head Tennis Coach Relationship Specialty Start Date End Date Lynda Rasheed MD [address] [place] [address] PCP - General 02/25/17 Head Tennis Coach Relationship Specialty Start Date End Date Lynda Rasheed MD [address] [place] [address] PCP - General 02/25/17 Head Tennis Coach Relationship Specialty Start Date End Date Lynda Rasheed MD [address] [place] [address] PCP - General 02/25/17 Head Tennis Coach Relationship Specialty Start Date End Date Lynda Rasheed MD [address] [place] [address] PCP - General 02/25/17 Head Tennis Coach Relationship Specialty Start Date End Date Lynda Rasheed MD [address] [place] [address] PCP - General 02/25/17 Head Tennis Coach Relationship Specialty Start Date End Date Lynda Rasheed MD [address] [place] [address] PCP - General 02/25/17 Head Tennis Coach Relationship Specialty Start Date End Date Lynda Rasheed MD [address] [place] [address] PCP - General 02/25/17 Head Tennis Coach Relationship Specialty Start Date End Date Lynda Rasheed MD [address] [place] [address] PCP - General 02/25/17 Head Tennis Coach Relationship Specialty Start Date End Date Lynda Rasheed MD [address] [place] [address] PCP - General 02/25/17 Head Tennis Coach Relationship Specialty Start Date End Date Lynda Rasheed MD [address] [place] [address] PCP - General 02/25/17 Head Tennis Coach Relationship Specialty Start Date End Date Lynda Rasheed MD [address] [place] [address] PCP - General 02/25/17 Head Tennis Coach Relationship Specialty Start Date End Date Lynda Rasheed MD [address] [place] [address] PCP - General 02/25/17 Head Tennis Coach Relationship Specialty Start Date End Date Lynda Rasheed MD [address] [place] [address] PCP - General 02/25/17 Head Tennis Coach Relationship Specialty Start Date End Date Lynda Rasheed MD [address] [place] [address] PCP - General 02/25/17 Head Tennis Coach Relationship Specialty Start Date End Date Lynda Rasheed MD [address] [place] [address] PCP - General 02/25/17 Head Tennis Coach Relationship Specialty Start Date End Date Lynda Rasheed MD [address] [place] [address] PCP - General 02/25/17 Head Tennis Coach Relationship Specialty Start Date End Date Lynda Rasheed MD [address] [place] [address] PCP - General 02/25/17 Head Tennis Coach Relationship Specialty Start Date End Date Lynda Rasheed MD [address] [place] [address] PCP - General 02/25/17 Head Tennis Coach Relationship Specialty Start Date End Date Lynda Rasheed MD [address] [place] [address] PCP - General 02/25/17 Head Tennis Coach Relationship Specialty Start Date End Date Lynda Rasheed MD [address] [place] [address] PCP - General 02/25/17 Head Tennis Coach Relationship Specialty Start Date End Date Lynda Rasheed MD [address] [place] [address] PCP - General 02/25/17 Head Tennis Coach Relationship Specialty Start Date End Date Lynda Rasheed MD [address] [place] [address] PCP - General 02/25/17 Head Tennis Coach Relationship Specialty Start Date End Date Lynda Rasheed MD [address] [place] [address] PCP - General 02/25/17 Head Tennis Coach Relationship Specialty Start Date End Date Lynda Rasheed MD [address] [place] [address] PCP - General 02/25/17 Head Tennis Coach Relationship Specialty Start Date End Date Lynda Rasheed MD [address] [place] [address] PCP - General 02/25/17 Head Tennis Coach Relationship Specialty Start Date End Date Lynda Rasheed MD [address] [place] [address] PCP - General 02/25/17 Radha Wylie, REGISTERED NURSE SUPERVISOR Respiratory Therapist Respiratory Therapy 03/02/24 Head Tennis Coach Relationship Specialty Start Date End Date Lynda Rasheed MD [address] [place] [address] PCP - General 02/25/17 Radha Wylie, REGISTERED NURSE SUPERVISOR Respiratory Therapist Respiratory Therapy 03/02/24 Head Tennis Coach Relationship Specialty Start Date End Date Lynda Rasheed MD [address] [place] [address] PCP - General 02/25/17 Radha Wylie, REGISTERED NURSE SUPERVISOR Respiratory Therapist Respiratory Therapy 03/02/24 Head Tennis Coach Relationship Specialty Start Date End Date Lynda Rasheed MD [address] [place] [address] PCP - General 02/25/17 Radha Wylie, REGISTERED NURSE SUPERVISOR Respiratory Therapist Respiratory Therapy 03/02/24 Head Tennis Coach Relationship Specialty Start Date End Date Lynda Rasheed MD [address] [place] [address] PCP - General 02/25/17 Radha Wylie, REGISTERED NURSE SUPERVISOR Respiratory Therapist Respiratory Therapy 03/02/24 Head Tennis Coach Relationship Specialty Start Date End Date Lynda Rasheed MD [address] [place] [address] PCP - General 02/25/17 Radha Wylie, REGISTERED NURSE SUPERVISOR Respiratory Therapist Respiratory Therapy 03/02/24 Head Tennis Coach Relationship Specialty Start Date End Date Lynda Rasheed MD [address] [place] [address] PCP - General 02/25/17 Radha Wylie, REGISTERED NURSE SUPERVISOR Respiratory Therapist Respiratory Therapy 03/02/24 Head Tennis Coach Relationship Specialty Start Date End Date Lynda Rasheed MD [address] [place] [address] PCP - General 02/25/17 Radha Wylie, REGISTERED NURSE SUPERVISOR Respiratory Therapist Respiratory Therapy 03/02/24 Head Tennis Coach Relationship Specialty Start Date End Date Lynda Rasheed MD [address] [place] [address] PCP - General 02/25/17 Radha Wylie, REGISTERED NURSE SUPERVISOR Respiratory Therapist Respiratory Therapy 03/02/24 Head Tennis Coach Relationship Specialty Start Date End Date Lynda Rasheed MD [address] [place] [address] PCP - General 02/25/17 Radha Wylie, REGISTERED NURSE SUPERVISOR Respiratory Therapist Respiratory Therapy 03/02/24 Head Tennis Coach Relationship Specialty Start Date End Date Lynda Rasheed MD [address] [place] [address] PCP - General 02/25/17 Radha Wylie, REGISTERED NURSE SUPERVISOR Respiratory Therapist Respiratory Therapy 03/02/24 Head Tennis Coach Relationship Specialty Start Date End Date Lynda Rasheed MD [address] [place] [address] PCP - General 02/25/17 Radha Wylie, REGISTERED NURSE SUPERVISOR Respiratory Therapist Respiratory Therapy 03/02/24 Head Tennis Coach Relationship Specialty Start Date End Date Lynda Rasheed MD [address] [place] [address] PCP - General 02/25/17 Radha Wylie, REGISTERED NURSE SUPERVISOR Respiratory Therapist Respiratory Therapy 03/02/24 Head Tennis Coach Relationship Specialty Start Date End Date Lynda Rasheed MD [address] [place] [address] PCP - General 02/25/17 Radha Wylie, REGISTERED NURSE SUPERVISOR Respiratory Therapist Respiratory Therapy 03/02/24 Head Tennis Coach Relationship Specialty Start Date End Date Lynda Rasheed MD [address] [place] [address] PCP - General 02/25/17 Radha Wylie, REGISTERED NURSE SUPERVISOR Respiratory Therapist Respiratory Therapy 03/02/24 Head Tennis Coach Relationship Specialty Start Date End Date Lynda Rasheed MD [address] [place] [address] PCP - General 02/25/17 Radha Wylie, REGISTERED NURSE SUPERVISOR Respiratory Therapist Respiratory Therapy 03/02/24 Head Tennis Coach Relationship Specialty Start Date End Date Lynda Rasheed MD [address] [place] [address] PCP - General 02/25/17 Radha Wylie, REGISTERED NURSE SUPERVISOR Respiratory Therapist Respiratory Therapy 03/02/24 Head Tennis Coach Relationship Specialty Start Date End Date Lynda Rasheed MD [address] [place] [address] PCP - General 02/25/17 Radha Wylie, REGISTERED NURSE SUPERVISOR Respiratory Therapist Respiratory Therapy 03/02/24 Head Tennis Coach Relationship Specialty Start Date End Date Lynda Rasheed MD [address] [place] [address] PCP - General 02/25/17 Radha Wylie, REGISTERED NURSE SUPERVISOR Respiratory Therapist Respiratory Therapy 03/02/24 Head Tennis Coach Relationship Specialty Start Date End Date Lynda Rasheed MD [address] [place] [address] PCP - General 02/25/17 Radha Wylie, REGISTERED NURSE SUPERVISOR Respiratory Therapist Respiratory Therapy 03/02/24 Head Tennis Coach Relationship Specialty Start Date End Date Lynda Rasheed MD [address] [place] [address] PCP - General 02/25/17 Radha Wylie, REGISTERED NURSE SUPERVISOR Respiratory Therapist Respiratory Therapy 03/02/24 Team Status: Active Member Role Status Dates [facility] Doctor Primary Care Provider Active Start: September 17, 2024 Dr. Doe Oh DO Referring Provider Active Start : September 17, 2024 Dr. Doe Oh DO Emergency Provider Active Start : September 17, 2024 Dr. Joon Vinson , DO Admit Provider Active Start: September 17, 2024 Dr. Joon Vinson DO Attending Provider Active Start: September 17, 2024 Head Tennis Coach Relationship Specialty Start Date End Date Lynda Rasehed MD [address] [facility] [address] [place] [address] PCP - General 02/25/17 Radha Wylie, REGISTERED NURSE SUPERVISOR Respiratory Therapist Respiratory Therapy 03/02/24 Scheduled Active and Recently Administ ered Medications (unrecognized section and content) Medication Order 06/07/2021 06/08/2021 06/09/2021 0.9 % sodium chloride bolus (COMPLETED) 1,000 mL (10.8 mL/kg), IntraVENous, at 1,000 mL/hr, Administer over 1 Hours, ONCE, On Sat06/07/21 at 1130, For 1 dose 1144 (New Bag - Provider: Sergey Velarde RN)1325 (Stopped - Provider: Sergey Velarde RN) amLODIPine (NORVASC) tablet 5 mg 5 mg, Oral, DAILY, First dose on Sat06/09/21 at 1030 1158 (Given - Provider: Lauren Alexander, TISH) cefTRIAXone sodium 1,000 mg in dextrose 5 [...] Olivera RN) 0841 (Given - Provider: Lauren Alexander, TISH) gabapentin (NEURONTIN) capsule 600 mg 600 mg, Oral, 3 TIMES DAILY, First dose on Sat06/07/21 at 0900 0940 (Given - Provider: Sergey Velarde RN)1348 (Given - Provider: Sergey Velarde RN)2115 (Given - Provider: Nancy Beal RN) 1000 (Not Given - Provider: Evelin Olivera RN - Reason: Patient not available - Comment: patient off unit for procedure)1446 (Given - Provider: Evelin Olivera RN)205 (Given [...] Sergey Velarde RN)1348 (Stopped - Provider: Sergey Velarde RN) multivitamin 1 tablet 1 tablet, Oral, DAILY, [...] 2 minutes. 0941 (Given - Provider: Sergey Velarde RN)2116 (Given - Provider: Nancy Beal RN) 1159 (Given - Provider: Evelin Olivera RN) pantoprazole (PROTONIX) tablet 40 mg 40 mg, Oral, DAILY BEFORE BREAKFAST, First dose on Sat06/09/21 at 0700, Do not crush or break. 0650 (Given - Provider: Evelin Duncan RN) PHENobarbital (LUMINAL) 190 mg in sodium chloride [...] Olivera RN) 0039 (Given - Provider: Evelin Duncan RN)0650 (Given - Provider: Evelin Duncan RN)1158 (Given - Provider: Lauren Alexander RN)1800 (Due) PHENobarbital (LUMINAL) tablet 97.2 mg (CANCELED) 97.2 mg, Oral, EVERY 4 HOURS, First dose on Sat06/07/21 at 1345, Hold for sedation 1348 (Given - Provider: Sergey Velarde RN)1708 (Given - Provider: Sergey Velarde RN)2115 (Given - Provider: Nancy Beal RN) 0139 [...] RN) 0846 (Given - Provider: Lauren Alexander, RN) predniSONE (DELTASONE) tablet 5 mg(Linked Group 2) 5 mg, Oral, DAILY, First dose on 06/17/21 at 0900, For 3 doses rosuvastatin (CRESTOR) tablet 10 mg 10 mg, Oral, NIGHTLY, First dose on Sat06/07/21 at 0100 0150 (Not Given - Provider: Citlali Capps RN - Reason: Patient took at home)2114 (Given - Provider: Nancy Beal RN) 2051 (Given - Provider: Evelin Duncan RN) 2100 (Due) sodium chloride (PF) 0.9 % injection 10 mL 10 mL, IntraVENous, DAILY, First dose on 06/06/21 at 1636, Use for IV pantoprazole reconstitution. 0941 (Given - Provider: Sergey Velarde RN) 120 (Given - Provider: Evelin Olivera RN) 0842 (Canceled Entry - Provider: Lauren Alexander, TISH) sodium chloride (PF) 0.9 % injection 10 mL 10 mL, IntraVENous, 2 times daily, First dose on Sat06/07/21 at 0900, Use for IV pantoprazole reconstitution. 0941 (Given - Provider: Sergey Velarde RN)211 (Given - Provider: Nancy Beal RN) 120 (Given - Provider: Evelin Olivera RN)2052 (Not Given - Provider: Evelin Duncan RN [...] Fluid Infusing)0842 (Canceled Entry - Provider: Lauren Alexander RN)1635 (Due) sodium chloride flush 0.9 % injection [...] patient off unit for procedure and duplicate orders)2053 (Not Given - Provider: Evelin Duncan RN - Reason: IV Fluid Infusing) 0842 (Canceled Entry - Provider: Lauren Alexander RN)2100 (Due) thiamine mononitrate tablet 100 mg 100 mg, Oral, 3 times daily, First dose on Sat06/07/21 at 0900 0940 (Given - Provider: Sergey Velarde RN)1348 (Given - Provider: Sergey Velarde RN)2115 (Given - Provider: Nancy Beal RN) 1200 (Given - Provider: Evelin Olivera RN)1446 (Given - Provider: Evelin Olivera RN)2052 (Given - Provider: Evelin Duncan RN) 0841 (Given - Provider: Lauren lAexander RN)1521 (Given - Provider: Lauren Alexander RN)2100 [...] needed. 0727 (See Alternative - Provider: Sergey Velarde, TISH)0940 (See Alternative - Provider: Sergey Velarde, TISH) LORazepam (ATIVAN) tablet 4 mg(Linked Group 5) [...] After every IV line use, Starting on Sat06/08/21 at 0724, For Line Patency: Peripheral IV [...] Oral, EVERY 6 HOURS, First dose on Sat06/11/21 at 0600, For 4 doses
Hold if patient unarousable
Group 2: predniSONE (DELTASONE) tablet 20 mgJump to med 20 mg, Oral, DAILY, First dose on Mounika 06/08/21 at 1145, For 3 doses Followed by predniSONE (DELTASONE) tablet 15 mgJump to med 15 mg, Oral, DAILY, First dose on Sat06/11/21 at 0900, For 3 doses Followed by predniSONE (DELTASONE) tablet 10 mgJump to med 10 mg, Oral, DAILY, First dose on Sat06/14/21 at 0900, For 3 doses Followed by [...] Fuente RN) 0808 (Given - Provider: Larry Morris, TISH) melatonin tablet 5 mg 5 mg, Oral, NIGHTLY, First dose on Sat09/28/21 at 2100, Until Discontinued 194 (Given - Provider: Kasie Gay, RN) 2100 (Due) nicotine (NICODERM CQ) 21 MG/24HR 1 [...] 0631 (Patch Removed - Provider: Kasie Gay RN)0801 (Patch Applied - Provider: Rena De La Fuente RN) 0803 (Patch Removed - Provider: Larry Morris RN)0808 (Patch Applied - Provider: Larry Morris RN) pantoprazole (PROTONIX) 40 mg in sodium chloride [...] Gay RN) 0336 (Given - Provider: Kasie Gay, RN) PHENobarbital (LUMINAL) tablet 100 mg 100 mg, Oral, EVERY 4 HOURS, First dose on Sat09/27/21 at 1100, Until Discontinued 1043 (Given - Provider: Rena De La Fuente RN)1515 (Given - Provider: Rena De La Fuente RN)1937 (Given - Provider: Kasie Gay, TISH)2304 (Given - Provider: Kasie Gay, RN) 0358 (Given - Provider: Kasie Gay [...] Morris RN)1200 (Due - Provider: Hui Barker [facility])1600 (Due - Provider: Hui Barker [facility])2000 (Due - Provider: uHi Barker [facility]) sodium chloride flush 0.9 % injection 5-40 [...] Fuente RN) 0801 (Given - Provider: Rena Chaboudy, RN) 0808 (Given - Provider: Larry Morris, RN) Continuous Medication Order 09/27/2021 09/28/2021 09/29/2021 0.9 % sodium chloride infusion IntraVENous, at 100 mL/hr, CONTINUOUS, Starting on Sat09/27/21 at 0345 0353 (New Bag - Provider: Juarez Avalos, RN)2309 (New Bag - Provider: Kasie Gay, RN) 0803 (New Bag - Provider: Rena De La Fuente, RN) 1119 (Stopped - Provider: Larry Morris, RN) PRN Medication Order 09/27/2021 09/28/2021 09/29/2021 [...] IntraVENous, ONCE PRN, 1 dose, Starting on Mounika 09/28/21 at 0051, Until Mounika 09/28/21 at 0120, High Blood Pressure, SBP>160 OR DBP>90 0120 (Given - Provider: Kasie Gay, RN) hydrALAZINE (APRESOLINE) injection 5 mg (COMPLETED) 5 mg, IntraVENous, ONCE PRN, 1 dose, Starting on Mounika 09/28/21 at 2336, Until Mounika 09/28/21 at 2343, High Blood Pressure, SBP>160 OR DBP>90 2343 (Given - Provider: Kasie Gay, RN) LORazepam (ATIVAN) injection 1 mg(Linked Group 2) [...] - Provider: Rena De La Fuente RN)1738 (Given - Provider: Rena De La Fuente RN)1945 (Given - Provider: Kasie Gay RN)230 (Given - Provider: Kasie Gay RN) 1020 (Given - Provider: Rena De La Fuente RN)2343 (See Alternative - Provider: Kasie Gay RN) LORazepam (ATIVAN) injection 2 mg(Linked Group 2) [...] (Given - Provider: Rena De La Fuente RN)173 (See Alternative - Provider: Rena De La Fuente RN)1945 (See Alternative - Provider: Kasie Gay RN)230 [...] Provider: Kasie Gay RN) LORazepam (ATIVAN) injection 4 mg(Linked Group 2) [...] RN)2343 (See Alternative - Provider: Kasie Gay, RN) LORazepam (ATIVAN) tablet 1 mg(Linked Group [...] Alternative - Provider: Rena De La Fuente RN)1946 (See Alternative - Provider: Kasie Gay, RN)2308 (See Alternative - Provider: Kasie Gay, RN) 1020 (See Alternative - Provider: Rena De La Fuente RN)2343 (See Alternative - Provider: Kasie Gay, RN) ondansetron (ZOFRAN) injection 4 mg(Linked Group [...] Daily, First dose on 07/21/22 at 1830 204 (Not Given - Provider: Nick Gordon RN - Reason: Other - Comment: due at 0900) 0838 (Given - Provider: Keila Holcomb, RN) 1054 (Given - Provider: Sera Garcia, TISH) gabapentin (Neurontin) tablet 600 mg 600 mg, Oral, 3 times daily, First dose on 07/21/22 at 2100 2045 (Given - Provider: Nick Gordon RN) 0838 [...] specifically ordered. 1648 (Given - Provider: Harika Gay RN) ondansetron (Zofran) injection 4 mg (COMPLETED) 4 mg, IntraVENous, Once, On 07/21/22 at 1635, For 1 dose 1648 (Given - Provider: Harika Gay, RN) pantoprazole (ProtoNix) injection 40 mg (COMPLETED) [...] po. 1127 (Given - Provider: Keila Holcomb RN)1952 (Given - Provider: Tram Tello, RN)2100 (Not Given - Provider: Tram Tello RN - Reason: Other - Comment: given at 1952) 1054 (Given - Provider: Sera Garcia, TISH) Thiamine Mononitrate (Vitamin B1) tablet 100 mg 100 mg, Oral, Daily, First dose on 07/21/22 at 1830 2045 (Not Given - Provider: Nick Gordon RN - Reason: Other - Comment: due at 0900) 0838 (Given - Provider: Keila Holcomb RN) 1054 (Given - Provider: Sera Garcia RN) PRN Medication Order 07/21/2022 07/22/2022 07/23/2022 albuterol [...] RN)195 (See Alternative - Provider: Tram Tello RN)2246 [...] Provider: Sera Garcia RN) LORazepam (Ativan) injection 3 mg(Linked Group 1) [...] doses dilute dose with 1ml NS. 2033 (Given - Provider: Nick Gordon RN) 010 (See [...] RN)0903 (See Alternative - Provider: Sera Garcia, TISH) LORazepam (Ativan) injection 4 mg(Linked Group 1) [...] RN)0903 (See Alternative - Provider: Sera Garcia, TISH) LORazepam (Ativan) tablet 1 mg(Linked Group 1) [...] Alternative - Provider: Tram Tello RN) 0321 (Given - Provider: Tram Tello RN)0638 (Given [...] 010 (See Alternative - Provider: Nick Gordon RN)033 (See Alternative - Provider: Nick Gordon RN)0701 (See Alternative - Provider: Nick Gordon RN)0856 (See Alternative - Provider: Keila Holcomb RN)1637 (Given - Provider: Keila Holcomb RN)1951 (Given - Provider: Tram Tello RN)2246 (Given - Provider: Tram Tlelo RN) 032 (See Alternative - Provider: Tram [...] RN)0903 (See Alternative - Provider: Sera Garcia, RN) LORazepam (Ativan) tablet 4 mg(Linked Group 1) 4 mg, Oral, Every 1 hour PRN, other, For alcohol withdrawal, Starting on 07/21/22 at 1829, For CIWA score greater than 20. Reassess CIWA one hour after each dose of medication and as needed. 203 (See Alternative - Provider: Nick Gordon RN) 0109 (See Alternative - Provider: Nick Gordon RN)0334 (See Alternative - Provider: Nick Gordon RN)0701 (See Alternative - Provider: Nick Gordon, RN)0856 (See Alternative - Provider: Keila Holcomb RN)1638 (See Alternative - Provider: Keila Holcomb RN)1952 (See Alternative - Provider: Tram Tello RN)2247 (See Alternative - Provider: Tram Tello RN) 0321 (See Alternative - Provider: Tram Tello RN)0638 (See Alternative - Provider: Tram Tello RN)0903 (See Alternative - Provider: Sera Garcia, TISH) ondansetron (Zofran) injection 4 mg(Linked Group 2) [...] Navarrete RN) 0811 (Given - Provider: Lauren Irby, TISH)2050 (Given - Provider: Corinne Navarrete RN) 08 (Given - Provider: Lauren Irby RN) folic [...] at 2100 2127 (Given - Provider: Corinne Navarrete RN) 2050 (Given - Provider: Corinne Navarrete RN) multiple vitamin tablet 1 tablet, Oral, Daily, First dose on Sat09/11/22 at 0900 0809 (Given - Provider: Stephanie Schmitt RN) 0811 (Given - Provider: Lauren Irby RN) 0801 (Given - Provider: Lauren Irby RN) naltrexone (Depade) tablet 50 mg (COMPLETED) 50 mg, Oral, Once, On Mounika 09/13/22 at 1230, For 1 dose 1304 (Given [...] ID bracelet kit sent up by Pharmacy 09 (Given - Provid er: Lauren Irby RN) nicotine (Nicoderm, Step 1) 21 MG/24HR patch 1 patch(Linked Group 1) 1 patch, TransDERmal, Administer over 24 Hours, Daily, First dose on Sat09/11/22 at 0900, For 42 days 08 (Medication Applied - Provider: Stephanie Schmitt RN) 08 (Medication Removed - Provider: Lauren Irby RN)08 (Medication Applied - Provider: Lauren Irby RN) [...] at 0530 0553 (Given - Provider: Corinne Navarrete RN)1100 (Given - Provider: Lauren Irby, TISH)1716 (Given - Provider: Lauren Irby, RN)2347 (Given - Provider: Corinne Navarrete, TISH) 0509 (Given - Provider: Corinne Navarrete RN)1059 (Given - Provider: Lauren Irby, RN) PHENobarbital (Luminal) tablet 97.2 mg (CANCELED) 97.2 mg, Oral, Every 3 hours, First dose (after last modification) on Sat09/11/22 at 1215 0050 (Given - Provider: Magaly Chowdhury, TISH)0400 (Not Given - Provider: Magaly Chowdhury RN - Reason: Other - Comment: pt sleeping)0633 (Given - Provider: Magaly Chowdhury, RN)1024 (Given - Provider: Stephanie Schmitt, TISH) PHENobarbital (Luminal) tablet 97.2 mg (COMPLETED) 97.2 mg, Oral, Every 4 hours, First dose (after last modification) on Sat09/12/22 at 1430, For 3 doses 1426 (Given - Provider: Stephanie Schmitt RN)1802 (Given - Provider: Stephanie Schmitt, TISH)2236 (Given - Provider: Corinne Navarrete, TISH) Thiamine Mononitrate (Vitamin B1) tablet 100 mg (CANCELED) 100 mg, Oral, 3 times daily, First dose (after last modification) on Sat09/11/22 at 1400 0809 (Given - Provider: Stephanie Schmitt, TISH)1400 (Given - Provider: Stephanie Schmitt, TISH)2128 (Given - Provider: Corinne Navarrete RN) 0811 (Given - Provider: Lauren Irby, TISH)1304 (Given - Provider: Lauren Irby, RN)2051 (Given - Provider: Corinne Navarrete, TISH) 0801 (Given - Provider: Lauren Irby, RN) Thiamine Mononitrate (Vitamin B1) tablet 100 mg 100 mg, Oral, Daily, First dose (after last modification) on Sat09/15/22 at 0900 PRN Medication Order 09/12/2022 09/13/2022 09/14/2022 albuterol 108 (90 Base) MCG/ACT inhaler 2 puff 2 puff, Inhalation, Every 6 hours PRN, wheezing, shortness of breath, Starting on Sat09/10/22 at 1557 0813 (Given - Provider: Stephanie Schmitt, TISH) 0710 (Given - Provider: Corinne Navarrete, TISH)2051 (Given - Provider: Corinne Navarrete, RN) hydrOXYzine pamoate (Vistaril) capsule 50 mg 50 mg, Oral, Every 6 hours PRN, anxiety, Starting on Sat09/10/22 at 1559 1727 (Self Administered Via Pump - Provider: Stephanie Schmitt, TISH) ibuprofen tablet 400 mg 400 mg, Oral, Every 6 hours PRN, pain 1-10, Starting on Sat09/10/22 at 1559 1246 (Given - Provider: Lauren Irby RN) loperamide (Imodium) capsule 2 mg 2 [...] nausea, vomiting, Starting on Sat09/10/22 at 1559 205 (Given - Provider: Corinne Navarrete, TISH) traZODone (Desyrel) tablet 50 mg 50 mg, Oral, Nightly PRN, sleep, Starting on Sat09/10/22 at 1559 2236 (Given - Provider: Corinne Navarrete, TISH) 2347 (Given - Provider: Corinne Navarrete, TISH) Linked Groups Order Group 1: nicotine (Nicoderm, [...] RN) 0932 (Given - Provider: Stephanie Schmitt, TISH) gabapentin (Neurontin) capsule 600 mg 600 mg, Oral, 3 times daily, First dose on Sat02/09/23 at 0945 1030 (Given - Provider: Lauren [...] 5 mg, Oral, Nightly, First dose on 02/09/23 at 2100 2037 (Given - Provider: Lizz Martinez RN) 2025 (Given - Provider: Lizz Martinez, TISH) naltrexone (Depade) tablet 25 mg (COMPLETED) 25 [...] one time) 0508 (Given - Provider: Lizz Martinez, TISH) PHENobarbital (Luminal) tablet 64.8 mg 64.8 mg, Oral, Every 4 hours, First dose (after last modification) on 02/10/23 at 1700, OK to HOLD or DELAY for oversedation 1647 (Given - Provider: Lauren Irby RN)2025 (Given - Provider: Lizz Martinez RN) 010 (Given - Provider: Lizz Martinez RN)0508 (Given - Provider: Lizz Martinez RN)0931 (Given - Provider: Stephanie Schmitt, TISH)1300 (Canceled Entry - Provider: Automatic Discharge Provider - Comment: Automatically canceled at discontinue of medication order) PHENobarbital (Luminal) tablet 97.2 mg (CANCELED) 97.2 mg, Oral, Every 4 hours, First dose (after last reorder) on Sat02/09/23 at 0100, OK to HOLD or DELAY [...] RN) 0932 (Given - Provider: Stephanie Schmitt, TISH) thiamine (Vitamin B1) tablet 100 mg 100 mg, Oral, Daily, First dose on Sat02/08/23 at 1725 0844 (Given - Provider: Lauren Irby RN) 0827 (Given - Provider: Lauren Irby RN) 0932 (Given - Provider: Stephanie Schmitt, TISH) PRN Medication Order 02/09/2023 02/10/2023 02/11/2023 acetaminophen [...] in the first 6 weeks of cessation. 1822 (Given - Provider: Lauren Irby RN)2037 (Given - Provider: Lizz Martinez RN) 0529 (Given - Provider: Lizz Martinez RN)0827 (Given - Provider: Lauren Irby RN)1018 (Given - Provider: Lauren Irby RN)143 (Given - Provider: Lauren Irby RN)164 (Given - Provider: Lauren Irby RN)2025 (Given [...] De Dios RN)1412 (Given - Provider: Jacqueline Pittman, TISH)214 (Given - Provider: Mer Oscar RN) 0957 (Given - Provider: Julianna Hampton RN)1552 (Given - Provider: Julianna Hampton RN)202 (Given - Provider: Clarita Delong RN) 0827 (Given - Provider: Julianna Hampton RN)142 (Given - Provider: Julianna Hampton RN) hydrALAZINE [...] adults. 1005 (Given - Provider: Eda Nguyen, TISH)1412 (Given - Provider: Jacqueline Pittman, TISH)1824 (Given - Provider: Carol Tovar RN)2148 (Given - Provider: Mer Oscar RN) 0208 (Given - Provider: Mer Oscar RN)0607 (Given - Provider: Mer Oscar RN)1117 (Given - Provider: Julianna Hampton RN)1548 (Given - Provider: Julianna Hampton RN)1855 [...] RN)1902 (See Alternative - Provider: Julianna Hampton RN)2028 (See Alternative - Provider: Clarita Delong RN) 08 (See Alternative - Provider: Julianna Hampton RN) [...] (See Alternative - Provider: Clarita Delong RN) 08 (See Alternative - Provider: Julianna Hampton RN) [...] needed. 0321 (Given - Provider: Alpa Middleton RN)0759 (See Alternative - Provider: Estella De Dios RN)152 (Given - Provider: Carol Tovar RN) 1002 (Given - Provider: Julianna Hampton RN)155 (Given - Provider: Julianna Hampton RN)190 (Given - Provider: Julianna Hampton RN)2028 (See Alternative - Provider: Clarita Delong RN) 08 (Given - Provider: Julianna Hampton RN) LORazepam (Ativan) tablet 2 mg(Linked Group 2) 2 mg, Oral, Every 1 hour PRN, other, For alcohol withdrawal, Starting on Sat05/21/23 at 0054, For CIWA score 11 to 15. Reassess CIWA one hour after each dose of medication and as needed. 0321 (See Alternative - Provider: Alpa Middleton RN)075 (Given - Provider: Estella De Dios RN)152 (See Alternative - Provider: Carol Tovar RN) 1002 (See Alternative - Provider: Julianna Hampton RN)1555 (See Alternative - Provider: Julianna Hampton RN)190 (See Alternative - Provider: Julianna Hampton RN)2028 (Given - Provider: Clarita Delong RN) 08 (See Alternative - Provider: Julianna Hampton RN) [...] Hampton RN)1902 (See Alternative - Provider: Julianna Hampton, TISH)2028 (See Alternative - Provider: Clarita Delong RN) [...] Hours, Daily PRN, nicotine withdrawl, Starting on e 05/21/23 at 0236, For use if smokes less [...] RN) 0848 (Given - Provider: Stephanie Schmitt, TISH) gabapentin (Neurontin) capsule 600 mg 600 mg, Oral, 3 times daily, First dose on Sat07/09/23 at 0900 0914 (Given - Provider: Stephanie Schmitt, TISH)1441 (Given - Provider: Stephanie Schmitt, TISH)2052 (Given - Provider: Evelyn Abad RN) 0926 (Given - Provider: Nicole Albrecht RN)1412 (Given - Provider: Nicole Albrecht, TISH)2040 (Given - Provider: Evelyn Abad RN) 0848 (Given - Provider: Stephanie Schmitt, TISH)1400 (Not Given - Provider: Stephanie Schmitt, TISH - Reason: Other - Comment: discharged. waiting ride) ipratropium-albuterol (Duo-Neb) 0.5-2.5 mg/3 mL nebulizer solution 3 mL (CANCELED) 3 mL, Nebulization, 3 times daily, First dose on Sat07/09/23 at 1400, For 2 days 1143 (Given - Provider: Landen Cesar RCP)1999 (Not Given - Provider: Quynh Avalos RRT - Reason: Patient/family refused) 0717 (Given - Provider: Nilay Manning, SYDNIE)1223 (Given - Provider: Nilay Manning RRT)1931 (Given - Provider: Jacqueline Jay RCP) 0830 (Not Given - Provider: Katherine Ortiz RCP - Reason: Patient not available) melatonin tablet 5 mg 5 mg, Oral, Nightly, First dose on Sat07/09/23 at 2100 2052 (Given - Provider: Evelyn Abad RN) 2203 (Given - Provider: Evelyn Abad RN) pantoprazole (ProtoNix) EC tablet 40 mg 40 mg, Oral, Daily before breakfast, First dose on Sat07/09/23 at 0600, Do not crush, chew, or split. 0541 (Given - Provider: Roger Mullins RN) 0507 (Given - Provider: Evelyn Abad RN) 0505 (Given - Provider: Evelyn Abad RN) PHENobarbital (Luminal) tablet 97.2 mg 97.2 mg, Oral, Every 4 hours, First dose on Sat07/08/23 at 1930, OK to HOLD if overly sedated 0304 (Given - Provider: Roger Mullins RN)0746 (Given - Provider: Stephanie Schmitt, TISH)1152 (Given - Provider: Stpehanie Schmitt, RN)1642 (Given - Provider: Stephanie Schmitt, TISH)205 (Given - Provider: Evelyn Abad RN) 0102 (Given - Provider: Evelyn Abad RN)0507 (Given - Provider: Evelyn Abad RN)0926 (Given - Provider: Nicole Albrecht, TISH)1313 (Given - Provider: Nicole Albrecht RN)1722 (Given - Provider: Nicole Albrecht RN)2040 (Given - Provider: Evelyn Abad RN) 0106 (Given - Provider: Evelyn Abad RN)0505 (Given - Provider: Evelyn Abad RN)0848 (Given [...] 0848 (Given - Provider: Stephanie Schmitt RN) PRN Medication Order 07/09/2023 07/10/2023 07/11/2023 [...] 3 times daily PRN, indigestion, Starting on 4/9/24 at 1022 hydrOXYzine pamoate (Vistaril) capsule 50 mg 50 mg, Oral, Every 6 hours PRN, anxiety, Starting on Sat07/08/23 at 191 013 (Given - Provider: Kristina Hampton, TISH) ibuprofen tablet 400 mg 400 mg, Oral, [...] PRN, smoking cessation, Starting on Sat07/09/23 at 205 2121 (Given - Provider: Evelyn Abad RN) 0350 (Given - Provider: Evelyn Abad RN)1243 (Given - Provider: Nicole Albrecht, TISH - Comment: Nicotine craving)1514 (Given - Provider: Nicole Albrecht, TISH - Comment: nicotine craving)1817 (Given - Provider: Nicole Albrecht, TISH - Comment: Nicotine cravings)2041 (Given - Provider: Evelyn Abad RN) 0848 (Given - Provider: Stephanie Schmitt, TISH)1214 (Given - Provider: Stephanie Schmitt, TISH) ondansetron ODT (Zofran-ODT) disintegrating tablet 4 mg 4 mg, Oral, Every 8 hours PRN, nausea, vomiting, Starting on Sat07/08/23 at 1913 013 (Given - Provider: Kristina Hampton, TISH) traZODone (Desyrel) tablet 50 mg 50 mg, Oral, Nightly PRN, sleep, Starting on Sat07/08/23 at 1913 013 (Given - Provider: Kristina Hampton, TISH) Linked Groups Order Group 1: LORazepam (Ativan) [...] split. 1444 (Given - Provider: Virgilio Bone RN)2040 (Given - Provider: Yasemin Abdul RN) 0809 (Given - Provider: Lauren Irby RN)1330 (Given - Provider: Lauren Irby RN) gabapentin (Neurontin) capsule 600 mg 600 mg, Oral, 3 times daily, First dose on Sat07/29/23 at 1400 1350 (Given - Provider: Tracy Davies RN)2121 (Given - Provider: Yasemin Abdul RN) 0852 (Given - Provider: Virgilio Bone RN)1444 (Given - Provider: Virgilio Bone RN)2040 (Given - Provider: Yasemin Abdul RN) 0809 (Given - Provider: Lauren Irby RN)1330 (Given - Provider: Lauren Irby RN) ipratropium-albuterol [...] over 24 Hours, Daily, First dose on Sat07/28/23 at 0900 0900 (Return to Cabinet - Provider: Tracy Davies RN - Comment: not applied. Pt wants lozenge) 0900 (Not Given - Provider: Virgilio Bone, RN - Reason: Patient/family refused) 0900 (Not [...] On Sat07/30/23 at 2300, For 1 dose 225 (Given - Provider: Yasemin Abdul RN) PHENobarbital (Luminal) tablet 64.8 mg (CANCELED) 64.8 mg, Oral, Every 4 hours, First dose (after last modification) on Sat07/28/23 at 1300, Hold for oversedation 0105 (Given - Provider: Kristina Hampton RN)0454 (Given - Provider: Kristina Hampton RN)0844 (Given - Provider: Tracy Davies RN)1301 (Given - Provider: Tracy Davies RN)1735 (Given - Provider: Tracy Davies RN)2121 (Given - Provider: Yasemin Abdul RN) 0111 (Given - Provider: Yasemin Abdul RN)0431 (Given - Provider: Yasemin Abdul RN)0852 (Given - Provider: Virgilio Bone, RN)1300 (Not Given - Provider: Virgilio Bone, RN - Reason: See Provider Order) PHENobarbital [...] 3 times daily PRN, indigestion, Starting on Sat07/27/23 at 2120 hydrOXYzine pamoate (Vistaril) capsule 50 mg 50 mg, Oral, Every 6 hours PRN, allergies, anxiety, Starting on Sat07/27/23 at 2121 1710 (Given - Provider: Virgilio Bone RN) ipratropium-albuterol (Duo-Neb) 0.5-2.5 mg/3 mL nebulizer solution 3 mL 3 mL, Nebulization, 3 times daily PRN, wheezing, Starting on Sat07/30/23 at 1400 loperamide (Imodium) capsule 2 mg 2 mg, Oral, 4 times daily PRN, diarrhea, Starting on Sat07/27/23 at 2121, After each loose stool magnesium hydroxide (Milk of Magnesia) 400 MG/5ML suspension 30 mL 30 mL, Oral, 2 times daily PRN, constipation, Starting on Sat07/27/23 at 2121 nicotine polacrilex (Commit) lozenge 2 mg 2 mg, Mouth/Throat, Every 2 hour PRN, smoking cessation, Starting on 07/28/23 at 0825 1022 (Given - Provider: Tracy Davies RN)1636 (Given - Provider: Tracy Davies RN)2009 (Given - Provider: Corinne Navarrete RN)2222 (Given - Provider: Yasemin Abdul RN) 0858 (Given - Provider: Virgilio Bone, RN)1251 (Given - Provider: Neelam Cody RN - Comment: pt. requested)1824 (Given - Provider: Virgilio Bone RN)2024 (Given - Provider: Lizet Martin RN)220 (Given - Provider: Yasemin Abdul RN) 0810 (Given - Provider: Lauren Irby RN) ondansetron ODT (Zofran-ODT) disintegrating tablet 4 mg 4 mg, Oral, Every 6 hours PRN, nausea, vomiting, Starting on 07/27/23 at 2121 traZODone (Desyrel) tablet 100 mg 100 mg, Oral, Nightly PRN, sleep, Starting on 07/27/23 at 2121 2248 (Given - Provider: Yasemin Abdul RN) 225 (Given - Provider: Yasemin Abdul RN) Scheduled [...] at 0900 0838 (Given - Provider: Gris Dillon RN)1409 (Given - Provider: Gris Dillon RN)2224 (Given - Provider: Arsenio Chowdhury RN) 0907 (Given - Provider: Savana Wilson RN)1348 (Given - Provider: Savana Wilson RN)2138 (Given - Provider: Mp Butler RN) 0908 (Given - Provider: Dee Lyn, TISH) LORazepam (Ativan) tablet 2 mg (COMPLETED) 2 mg, Oral, Once, On Mounika 11/28/23 at 0205, For 1 dose 0224 (Given - Provider: Papito Ruiz, TISH) naltrexone (Depade) tablet 50 mg 50 mg, Oral, Daily, First dose on 11/30/23 at 0900 0908 (Given - Provider: Dee Lyn, TISH) pantoprazole (ProtoNix) EC tablet 40 mg 40 mg, Oral, Daily before breakfast, First dose on Mounika 11/28/23 at 0600, Do not crush, chew, or split. 0615 (Given - Provider: Papito Ruiz, TISH) 0643 (Given - Provider: Arsenio Chowdhury RN) 0555 (Given - Provider: Mp Butler RN) [...] RN) 1348 (See Alternative - Provider: Savana Wislon RN)2138 (See Alternative - Provider: Mp Butler RN) LORazepam (Ativan) injection 2 mg(Linked Group 3) 2 mg, IntraVENous, Every 1 hour PRN, withdrawal, For alcohol withdrawal., Starting on Sat11/28/23 at 0201, For CIWA [...] 1348 (See Alternative - Provider: Savana Wilson RN)2137 (See Alternative - Provider: Mp Butler RN) [...] 1348 (See Alternative - Provider: Savana Wilson RN)2137 (See Alternative - Provider: Mp Butler RN) [...] RN) 1348 (Given - Provider: Savana Wilson RN)2137 (Given - Provider: Mp Butler RN) LORazepam [...] 1348 (See Alternative - Provider: Savana Wilson RN)2137 (See Alternative - Provider: Mp Butler RN) LORazepam (Ativan) tablet 3 mg(Linked Group 3) 3 mg, Oral, Every 1 hour PRN, other, For alcohol withdrawal, Starting on Mounika 29/24 at 0201, For CIWA score 16 to 20. Reassess CIWA one hour after each dose of medication and as needed. 1427 (See Alternative - Provider: Gris Dillon RN)1557 (See Alternative - Provider: Gris Dillon RN) 1348 (See Alternative - Provider: Savana Wilson, TISH)2137 (See Alternative - Provider: Mp Butler, RN) LORazepam (Ativan) tablet 4 mg(Linked Group 3) 4 mg, Oral, Every 1 hour PRN, other, For alcohol withdrawal, Starting on Sat11/28/23 at 0201, For CIWA score greater than 20. Reassess CIWA one hour after each dose of medication and as needed. 1427 (See Alternative - Provider: Gris Dillon RN)1557 (See Alternative - Provider: Gris Dillon RN) 1348 (See Alternative - Provider: Savana Wilson, TISH)2137 (See Alternative - Provider: Mp Butler, TISH) nicotine polacrilex (Nicorette) gum 2 mg 2 mg, Mouth/Throat, Every 2 hour PRN, smoking cessation, Starting on Sat11/28/23 at 1119 1306 (Given - Provider: Gris Dillon RN) 0908 (Given - Provider: Savana Wilson, TISH) nicotine polacrilex (Nicorette) gum 4 mg 4 [...] of cessation. 1715 (Given - Provider: Keshia Armijo RN)2138 (Given - Provider: Mp Butler RN) ondansetron (Zofran) injection 4 mg(Linked Group 4) 4 mg, IntraVENous, Every 6 hours PRN, nausea, vomiting, Starting on Sat11/28/23 at 0520, 1st Line. Give IV if [...] than 100.4 F (38 C), Starting on Sat11/28/23 at 0520, Maximum dose of acetaminophen is 4000 mg from all sources in 24 hours. Or acetaminophen (Tylenol) suppository 650 mgJump to med 650 mg, Rectal, Every 6 hours PRN, mild pain (1-3), fever, For temp greater than 100.4 F (38 C), Starting on Sat11/28/23 at 0520, Administer if oral route cannot be used. Maximum dose of acetaminophen is 4000 mg from all sources in 24 hours. Group 2: aluminum & magnesium hydroxide-simethicone (Mylanta) 200-200-20 MG/5ML oral suspension 20 mLJump to med 20 mL, Oral, Every 6 hours PRN, indigestion, heartburn, Starting on Sat11/28/23 at 0829 Or calcium carbonate (Tums) chewable tablet 1,000 mgJump to med 1,000 mg, Oral, Every 6 hours PRN, indigestion, heartburn, Starting on Sat11/28/23 at 0829 Group 3: LORazepam (Ativan) tablet [...] Davies RN) 0819 (Given - Provider: Virgilio Bone, RN) gabapentin (Neurontin) capsule 600 mg 600 mg, Oral, 3 times daily, First dose on Sat01/21/24 at 0945 0824 (Given - Provider: Adeline Peacock RN)1417 (Given - Provider: Adeline Peacock RN)2035 (Given - Provider: Evelyn Abad RN) 0912 (Given - Provider: Tracy Davies, TISH)1437 (Given - Provider: Tracy Davies, RN)2114 (Given - Provider: Yasemin Abdul RN) 0819 (Given - Provider: Virgilio Bone, TISH)1400 (Canceled Entry - Provider: Automatic Discharge Provider - Comment: Automatically canceled at discontinue of medication order) melatonin tablet 5 mg 5 mg, Oral, Nightly, First dose on Sat01/20/24 at 2300 2250 (Given - Provider: Evelyn Abad, RN) 2321 (Given - Provider: Yaesmin Abdul RN - Comment: no sleepy) naltrexone (Depade) tablet 50 mg 50 mg, Oral, Daily With Dinner, First dose on Sat01/22/24 at 1700 1659 (Given - Provider: Adeline Peacock RN) 1720 (Given - Provider: Tracy Davies, RN) naltrexone ER (Vivitrol) injection 380 mg [...] RN) 0911 (Medication Removed - Provider: Tracy Davies, RN)0912 (Medication Applied - Provider: Tracy Davies, TISH) 0819 (Medication Removed - Provider: Virgilio Bone, RN)0820 (Medication Applied - Provider: Virgilio Bone, TISH)1410 (Due: Medication Removed - Provider: Automatic Discharge Provider - Comment: Time automatically adjusted from order being discontinued) pantoprazole (ProtoNix) EC tablet 40 mg 40 mg, Oral, Daily before breakfast, First dose on Sat01/21/24 at 0945, Do not crush, chew, or split. 0631 (Given - Provider: Evelyn Abad RN) 0556 (Given - Provider: Evelyn Abad RN) 0550 (Given - Provider: Yasemin Abdul RN) PHENobarbital tablet 32.4 mg 32.4 mg, Oral, Every 4 hours, First dose (after last modification) on Sat01/23/24 at 1900, HOLD for sedation, SBP < 100 and / or HR < 50 1836 (Given - Provider: Tracy Davies RN)2321 (Given - Provider: Yasemin Abdul RN) 0228 (Given - Provider: Yasemin Abdul RN)0631 (Given - Provider: Yasemin Abdul RN)1224 (Given - Provider: Virgilio Bone, RN)1500 (Canceled Entry - Provider: Automatic Discharge Provider [...] Adeline Peacock RN)2250 (Given - Provider: Evelyn Abad RN) 0302 (Given - Provider: Evelyn Abad RN)0659 (Given - Provider: Evelyn Abad RN)1128 (Given - Provider: Tracy Davies RN)1500 (Not Given - Provider: Tracy Davies RN - Reason: Other - Comment: order modified) PHENobarbital tablet 97.2 mg (CANCELED) 97.2 mg, Oral, Every 4 hours, First dose (after last modification) on Sat01/21/24 at 1100, HOLD for sedation, SBP < 100 and / or HR < 50 0303 (Given - Provider: Evelyn Abad RN)0631 (Given - Provider: Evelyn Abad RN) thiamine (Vitamin B1) tablet 100 mg 100 mg, Oral, Daily, First dose on Sat01/21/24 at 0900 0824 (Given - Provider: Adeline Peacock RN) 0912 (Given - Provider: Tracy Davies RN) 0819 (Given - Provider: Virgilio Bone, TISH) PRN Medication Order 01/22/2024 01/23/2024 01/24/2024 albuterol 108 (90 Base) MCG/ACT inhaler 2 puff 2 puff, Inhalation, Every 6 hours PRN, wheezing, shortness of breath, Starting on Sat01/21/24 at 0939 0825 (Given - Provider: Adeline Peacock, RN) bisacodyl (Dulcolax) suppository 10 mg 10 mg, Rectal, Daily PRN, constipation, Starting on Sat01/20/24 at 2249, 2nd line for treatment of constipation - give scheduled (in addition to 1st line agent) if no bowel movement in past 48 hours busPIRone (Buspar) tablet 10 mg 10 mg, Oral, Every 8 hours PRN, Anxiety, Starting on Sat01/20/24 at 2251 1305 (Given - Provider: Virgilio Bone RN) doxepin (SINEquan) capsule 10 mg 10 mg, [...] Tracy Davies RN)1129 (Given - Provider: Tracy Davies RN)1439 (Given - Provider: Tracy Davies RN)1720 (Given - Provider: Tracy Davies RN)211 (Given - Provider: Yasemin Abdul RN)232 (Given - Provider: Kristina Hampton RN)2350 (Not Given - Provider: Yasemin Abdul RN - Reason: Other - Comment: scaned wrong med) 0631 (Given - Provider: Yasemin Abdul RN)0826 (Given - Provider: Virgilio Bone RN)1225 (Given - Provider: Virgilio Bone RN) nicotine polacrilex (Nicorette) gum 2 mg [...] 6 hours PRN, nausea, vomiting, Starting on 01/20/24 at 2247, 1st Line. Give IV if [...] Provider: Ceci Sandy RN - Reason: Patient/family refused)2215 (Given - Provider: Rita Adan RN) 0900 (Not Given - Provider: Ceci Sandy RN - Reason: Patient/family refused) cloNIDine (Catapres) tablet 0.1 mg (CANCELED) 0.1 mg, Oral, Every 4 hours, First dose on Sat04/11/24 at 1100, HOLD if sleeping, sedated, SBP < 100 or DBP < 60 or HR < 50 or unsteady gait 1152 (Given - Provider: Ceci Sandy, TISH)1530 (Given - Provider: Ceci Sandy RN)2020 (Given - Provider: Rita Adan RN) 002 (Not Given - Provider: Rita Adan RN - Reason: Other - Comment: Pt is sleeping and med held per order)0515 (Given - Provider: Rita Adan RN) folic acid (Folvite) tablet 1 mg 1 mg, Oral, Daily, First dose on Sat04/10/24 at 0900 0937 (Given - Provider: Kody Keen RN) 0803 (Given - Provider: Ceci Sandy, TISH) 0841 (Given - Provider: Ceci Sandy RN) melatonin tablet 10 mg 10 mg, Oral, Nightly, First dose on Sat04/10/24 at 2100, HOLD if sleeping or sedated. OK with Trazodone. 2103 (Given - Provider: Esteban Ocapmo RN) 2019 (Given - Provider: Rita Adan, TISH) melatonin tablet 5 mg (CANCELED) 5 mg, Oral, Nightly, First dose on Sat04/10/24 at 0040 0112 (Given - Provider: Mercedes Kebede RN) pantoprazole (ProtoNix) EC tablet 40 mg 40 mg, Oral, Daily, First dose on Sat04/10/24 at 0900, Do not crush, chew, or split. 0936 (Given - Provider: Kody Keen RN) 0804 (Given - Provider: Ceci Sandy RN) 0841 (Given - Provider: Ceci Sanyd, RN) PHENobarbital tablet 64.8 mg (CANCELED) 64.8 mg, Oral, Every 6 hours, First dose on Sat04/11/24 at 1000, HOLD if sleeping, sedated, SBP < 100 or HR < 50. 1007 (Given - Provider: Ceci Sandy, TISH)1622 (Given - Provider: Ceci Sandy, TISH)2215 (Given - Provider: Rita Adan, TISH) 0434 (Given - Provider: Rita Adan, TISH) PHENobarbital tablet 97.2 mg (CANCELED) 97.2 mg, Oral, Every 4 hours, First dose on Sat04/10/24 at 0900, HOLD if sleeping, sedated, SBP < 100 or HR < 50. 0936 (Given - Provider: Kody Keen RN)1352 (Given - Provider: Kody Keen RN)1658 (Given - Provider: Kody Keen RN)2104 (Given - Provider: Esteban Ocampo, TISH) 0100 (Not Given - Provider: Esteban Ocampo RN - Reason: Other - Comment: pt sleeping)0604 (Given - Provider: Esteban Ocampo RN)0900 (Canceled Entry - Provider: Ceci Sandy, TISH) therapeutic multivitamin-minerals (Theragran-M) tablet 1 tablet, Oral, Daily, First dose on Sat04/10/24 at 0900 0936 (Given - Provider: oKdy Keen RN) 0804 (Given - Provider: Ceci Sandy RN) 0841 (Given - Provider: Ceci Sandy, TISH) thiamine (Vitamin B1) tablet 100 mg 100 mg, Oral, Daily, First dose on Sat04/10/24 at 0900 0936 (Given - Provider: Kody Keen RN) 0804 (Given - Provider: Ceci Sandy, TISH) 0841 (Given - Provider: Ceci Sandy RN) PRN Medication Order 04/10/2024 04/11/2024 04/12/2024 albuterol 108 (90 Base) MCG/ACT inhaler 2 puff 2 puff, Inhalation, Every 6 hours PRN, wheezing, shortness of breath, Starting on Sat04/10/24 at 0037 2301 (Given - Provider: Rita Adan RN) dicyclomine (Bentyl) capsule 20 mg 20 mg, [...] needed. 0112 (See Alternative - Provider: Mercedes Kebede, TISH)0747 (Given - Provider: Kody Keen, RN)1111 (Given - Provider: Kody Keen, RN)1807 (Given - Provider: Kody Keen, TISH) LORazepam (Ativan) tablet 3 mg (CANCELED)(Linked Group 1) 3 mg, Oral, Every 1 hour PRN, other, For alcohol withdrawal, Starting on Sat04/10/24 at 0037, For CIWA score 16 to 20. Reassess CIWA one hour after each dose of medication and as needed. 0112 (Given - Provider: Mercedes Kebede RN)0747 (See Alternative - Provider: Kody Keen, TISH)1111 (See Alternative - Provider: Kody Keen, TISH)1807 (See Alternative - Provider: Kody Keen RN) [...] RN) 0837 (Given - Provider: Stephanie Schmitt, TISH) gabapentin (Neurontin) capsule 600 mg 600 mg, Oral, 3 times daily, First dose on Sat05/08/24 at 0930 1018 (Given - Provider: Nanette De Santiago RN)1408 (Given - Provider: Nanette De Santiago RN)2007 (Given - Provider: Evelyn Abad RN) 0919 (Given - Provider: Stephanie Schmitt, TISH)1425 (Given - Provider: Neelam Cody RN)203 (Given - Provider: Corinne Navarrete RN) 0837 (Given - Provider: Stephanie Schmitt RN)1353 (Given - Provider: Stephanie Schmitt, TISH) naltrexone (Depade) tablet 50 mg 50 mg, Oral, Daily With Dinner, First dose on Sat05/10/24 at 1700 pantoprazole (ProtoNix) EC tablet 40 mg 40 mg, Oral, Daily, First dose on Sat05/08/24 at 0930, Do not crush, chew, or split. 1018 (Given - Provider: Nanette De Santiago RN) 0920 (Given - Provider: Stephanie Schmitt RN) 0837 (Given - Provider: Stephanie Schmitt RN) PHENobarbital tablet 32.4 mg 32.4 mg, Oral, Every 4 hours, First dose (after last modification) on Sat05/09/24 at 1600, OK to HOLD or DELAY for oversedation 1542 (Given - Provider: Stephanie Schmitt RN)8 (Given - Provider: Corinne Navarrete RN) 0007 (Given - Provider: Corinne Navarrete RN)0415 (Given - Provider: Corinne Navarrete RN)0837 (Given - Provider: Stephanie Schmitt, TISH)1259 (Given - Provider: Stephanie Schmitt RN)1630 (Canceled Entry - Provider: Automatic Discharge Provider - Comment: Automatically canceled at discontinue of medication order) PHENobarbital tablet 64.8 mg (CANCELED) 64.8 mg, Oral, Every 4 hours, First dose (after last modification) on Sat05/08/24 at 1600, OK to HOLD or DELAY for oversedation 1637 (Given - Provider: Nanette De Santiago RN)2006 (Given - Provider: Evelyn Abad RN) 0003 (Given - Provider: Evelyn Abad RN)0406 (Given - Provider: Evelyn Abad RN)0920 (Given - Provider: Stephanie Schmitt RN)1246 (Given - Provider: Stephanie Schmitt, TISH) PHENobarbital tablet 97.2 mg (CANCELED) 97.2 mg, [...] RN) 0920 (Given - Provider: Stephanie Schmitt, TISH) 0837 (Given - Provider: Stephanie Schmitt RN) [...] Stephanie Schmitt RN)1425 (Given - Provider: Neelam Cody RN)2038 (Given - Provider: Corinne Navarrete RN) 0415 (Given - Provider: Corinne Navarrete RN)0837 (Given - Provider: Stephanie Schmitt, TISH)1500 (Not Given - Provider: Stephanie Schmitt RN - Reason: Other - Comment: discharge) PRN Medication Order 05/08/2024 05/09/2024 05/10/2024 acetaminophen (Tylenol) tablet 650 mg 650 mg, Oral, Every 6 hours PRN, mild pain (1-3), moderate pain (4-6), headaches, fever, severe pain (7-10), Starting on Mounika 05/07/24 at 2142 albuterol 108 (90 Base) MCG/ACT inhaler 2 puff 2 puff, Inhalation, Every 6 hours PRN, wheezing, shortness of breath, Starting on Sat05/08/24 at 0921 aluminum & magnesium hydroxide-simethicone (Mylanta) 200-200-20 MG/5ML oral suspension 10 mL 10 mL, Oral, 3 times daily PRN, indigestion, Starting on Sat05/07/24 at 2141 hydrOXYzine pamoate (Vistaril) capsule 50 mg 50 mg, Oral, Every 6 hours PRN, allergies, anxiety, Starting on Sat05/07/24 at 2141 0141 (Given - Provider: Evelyn Abad RN) loperamide (Imodium) capsule 2 mg 2 mg, Oral, 4 times daily PRN, diarrhea, Starting on Sat05/07/24 at 2141, After each loose stool LORazepam (Ativan) injection 2 mg 2 mg, IntraMUSCular, Once PRN, seizures, Starting on Sat05/07/24 at 2141, For 1 dose, Please notify optimization consultant attending if this has to be utilized for a seizure. For IV doses dilute dose with 1ml NS. magnesium hydroxide (Milk of Magnesia) 400 MG/5ML suspension 30 mL 30 mL, Oral, 2 times daily PRN, constipation, Starting on Sat05/07/24 at 2141 nicotine polacrilex (Commit) lozenge 4 mg 4 mg, Mouth/Throat, Every 2 hour PRN, smoking cessation, Starting on Sat05/08/24 at 0149 0848 (Given - Provider: Nanette De Santiago RN) 1039 (Given - Provider: Stephanie Schmitt RN)1426 (Given - Provider: Neelam Cody, TISH - Comment: pt. requested)1650 (Given - Provider: Neelam Cody, RN - Comment: pt. requested)2038 (Given - Provider: Corinne Navarrete RN) 0837 (Given - Provider: Stephanie Schmitt RN)1152 (Given - Provider: Neelam Cody RN - Comment: pt. requested)1259 (Given - Provider: Stephanie Schmitt RN) ondansetron ODT (Zofran-ODT) disintegrating tablet 4 mg 4 mg, Oral, Every 6 hours PRN, nausea, vomiting, Starting on Mounika 05/07/24 at 2142 0144 (Given - Provider: Evelyn Abad, TISH) traZODone (Desyrel) tablet 100 mg 100 mg, Oral, Nightly PRN, sleep, Starting on Mounika 05/07/24 at 2142 0141 (Given - Provider: Evelyn Abad, RN) 2253 (Given - Provider: Corinne Navarrete RN) Scheduled Medication Order 06/02/2024 06/03/2024 06/04/2024 clobetasol (Temovate) 0.05 % cream Topical, 2 times daily, First dose on Sat06/03/24 at 0945 1032 (Given - Provider: Nanette De Santiago RN)2008 (Given - Provider: Evelyn Abad RN) 0900 (Not Given - Provider: Nicole Albrecht RN - Reason: Patient/family refused) cloNIDine (Catapres) tablet 0.1 mg (COMPLETED) 0.1 mg, Oral, Once, On Mounika 06/04/24 at 1015, For 1 dose, HOLD if SBP < 100 or DBP < 60 or HR < 50 1022 (Given - Provider: Nicole Albrecht RN - Comment: HR 102) folic acid (Folvite) tablet 1 mg 1 mg, Oral, Daily, First dose on Sat06/02/24 at 1810 1836 (Given - Provider: Helen Winter RN) 0921 (Given - Provider: Nanette De Santiago RN) 0911 (Given - Provider: Nicole Albrecht, TISH) gabapentin (Neurontin) capsule 600 mg 600 mg, [...] mg (COMPLETED) 25 mg, Oral, Once, On Mounika 06/04/24 at 1100, For 1 dose, Do not crush or chew. 1100 (Given - Provider: Nicole Albrecht, RN) naltrexone (Depade) tablet 50 mg (COMPLETED) 50 mg, Oral, Once, On Sat06/04/24 at 1100, For 1 dose 1056 (Given - Provider: Nicole Albrecht, RN) naltrexone ER (Vivitrol) injection 380 mg (COMPLETED) 380 mg, IntraMUSCular, Once, On Sat06/04/24 at 1200, For 1 dose, Follow Package Insert. Bring vial to room temperature over 1 hour. Reconstitute with 3.4ml of provided diluent. Shake well. Draw up and administer 4mL dose deep IM into gluteal muscle IMMEDIATELY. Do not give IV or subcutaneously. Provide patient with wallet card and medical ID bracelet kit sent up by Pharm[facility] 1244 (Given - Provider: Nicole Albrecht, TISH) PHENobarbital tablet 64.8 mg 64.8 mg, Oral, Every 6 hours, First dose on Sat06/03/24 at 0000, OK to HOLD or DELAY for oversedation 0007 (Given - Provider: Claudia Jin RN)0615 (Given - Provider: Claudia Jin RN)1155 (Given - Provider: Nanette De Santiago, TISH)1824 (Given - Provider: Nanette De Santiago, TISH)2306 (Given - Provider: Evelyn Abad, TISH) 0539 (Given - Provider: Evelyn Abad, TISH)1239 (Given - Provider: Nicole Albrecht, TISH) PHENobarbital tablet 97.2 mg (COMPLETED) 97.2 mg, Oral, Once, On Sat06/02/24 at 1810, For 1 dose 1836 (Given - Provider: Helen Winter, TISH) thiamine (Vitamin B1) tablet 100 mg 100 mg, Oral, Daily, First dose on Sat06/02/24 at 1810 1836 (Given - Provider: Helen Winter, TISH) 0921 (Given - Provider: Nanette De Santiago, TISH) 0911 (Given - Provider: Nicole Albrecht, TISH) PRN Medication Order 06/02/2024 06/03/2024 06/04/2024 acetaminophen (Tylenol) tablet 650 mg 650 mg, Oral, Every 6 hours PRN, mild pain (1-3), moderate pain (4-6), headaches, fever, severe pain (7-10), Starting on Sat06/02/24 at 1926 1227 (Given - Provider: Nanette De Santiago, TISH)2008 (Given - Provider: Evelyn Abad, RN) albuterol 108 (90 Base) MCG/ACT inhaler 2 puff 2 puff, Inhalation, Every 6 hours PRN, wheezing, shortness of breath, Starting on Sat06/03/24 at 0935 1703 (Given - Provider: Nanette De Santiago, TISH) 0553 (Given - Provider: Evelyn Abad, TISH)1240 (Given - Provider: Nicole Albrecht RN) aluminum & magnesium hydroxide-simethicone (Mylanta) 200-200-20 MG/5ML oral suspension 10 mL 10 mL, Oral, 3 times daily PRN, indigestion, Starting on Sat06/02/24 at 192 hydrALAZINE (Apresoline) tablet 10 mg 10 mg, Oral, 3 times daily PRN, Hypertension (give if SBP > 180 and/or DBP > 120), Starting on Sat06/02/24 at 1926 hydrOXYzine pamoate (Vistaril) capsule 50 mg 50 mg, Oral, Every 6 hours PRN, allergies, anxiety, Starting on Sat06/02/24 at 192 loperamide (Imodium) capsule 2 mg 2 mg, Oral, 4 times daily PRN, diarrhea, Starting on Sat06/02/24 at 192, After each loose stool LORazepam (Ativan) injection 2 mg 2 mg, IntraMUSCular, Once PRN, seizures, Starting on Sat06/02/24 at 192, For 1 dose, Please notify optimization consultant attending if this has to be utilized for a seizure. For IV doses dilute dose with 1ml NS. LORazepam (Ativan) tablet 1 mg (CANCELED)(Linked Group 1) 1 mg, Oral, Every 1 hour PRN, other, For alcohol withdrawal, Starting on Sat06/02/24 at 1808, For CIWA score 8 to 10. Reassess CIWA one hour after each dose of medication and as needed. 1835 (Given - Provider: Helen Winter RN) magnesium hydroxide (Milk of Magnesia) 400 MG/5ML suspension 30 mL 30 mL, Oral, 2 times daily PRN, constipation, Starting on Sat06/02/24 at 1926 nicotine polacrilex (Commit) lozenge 4 mg 4 mg, Mouth/Throat, Every 2 hour PRN, smoking cessation, Starting on Sat06/03/24 at 0000 0006 (Given - Provider: Claudia Jin RN)1337 (Given - Provider: Nanette De Santiago, TISH)1702 (Given - Provider: Nanette De Santiago, TISH)2009 (Given - Provider: Evelyn Abad RN)2309 (Given - Provider: Evelyn Abad, TISH) 0645 (Given - Provider: Evelyn Abad RN)1015 (Given - Provider: Nicole Albrecht RN - Comment: Nicotine cravings)1257 (Given - Provider: Nicole Albrecht RN - Comment: nicotine cravings) ondansetron ODT (Zofran-ODT) disintegrating tablet 4 mg 4 mg, Oral, Every 6 hours PRN, nausea, vomiting, Starting on Sat06/02/24 at 1926 traZODone (Desyrel) tablet 100 mg 100 mg, [...] RN) 0826 (Given - Provider: Neelam Cody RN)1343 (Given - Provider: Neelam Cody RN) diazePAM [...] LPN)1846 (Given - Provider: Roma White LPN) 0101 (Given - Provider: Evelyn Abad RN)08 (Given - Provider: Neelam Cody RN)1344 (Given - Provider: Neelam Cody RN) folic acid (Folvite) tablet 1 mg 1 mg, Oral, Daily, First dose on Sat08/03/24 at 1910 0829 (Given - Provider: Lauren Irby RN) 0819 (Given - Provider: Roma White LPN) 08 (Given - Provider: Neelam Cody RN) gabapentin [...] RN)2031 (Given - Provider: Evelyn Abad RN) 08 (Given - Provider: Roma White LPN)134 (Given - Provider: Roma White LPN)2013 (Given - Provider: Evelyn Abad RN) 08 (Given - Provider: Neelam Cody RN)134 (Given - Provider: Neelam Cody RN) Lidocaine [...] sedation for opioid reversal - MUST notify optimization consultant provider immediately after first dose, may give IM or SQ if no IV access +++ nicotine polacrilex (Commit) lozenge 4 mg 4 mg, Mouth/Throat, Every 2 hour PRN, smoking cessation, Starting on Sat08/04/24 at 0128 0210 (Given - Provider: Kristina Hampton RN)1838 (Given - Provider: Lauren Irby RN)2031 (Given - Provider: Evelyn Abad RN) 1242 [...] Hampton RN) 0059 (Given - Provider: Evelyn Abad, TISH) 0004 (Given - Provider: Evelyn Abad RN) [...] contact provider if no further options ordered. Goals (unrecognized section and content) Goals may be documented in a n alternate section FOR RECORDS PERTAINING TO PATIENTS WHO ARE [...] BE BASED ON THE PRIMARY CLINICAL RECORDS. [facility]. provides no warranty or guarantee of the accuracy or completeness of information in this document.
[2024-10-18 10:21] LABS: Hematocrit 47.4 % (40-54); Hemoglobin 16.9 g/dL (13.0-16.5); Immature Granulocytes Count 0.020 X10^3/uL (0.0-0.0); Mean Corp Hgb Conc 35.7 g/dL (32-36); Mean Corpuscular Volume 95.8 fL (80-94); Mean Platelet Vol. 8.5 fl (6.2-12.0); NRBC Flagged by Analyzer 0 % (0-5); Platelet Count 137 K/mm3 (150-450); RBC Distribution Width CV 13.4 % (11.6-14.6); RBC Distribution Width SD 47.0 fl (35.1-43.9); Red Blood Count 4.95 M/mm3 (4.6-6.2); White Blood Count 6.5 K/mm3 (4.4-11.0)
[2024-10-18 10:39] LABS: AST(SGOT) 55 U/L (<=37); Alanine Aminotransfer ALT/SGPT 42 U/L (<=46); Albumin, Serum 4.1 g/dL (3.5-5.0); Alkaline Phosphatase 137 U/L (40-129); Anion Gap 16 (5-15); BUN 5 mg/dL (4-19); BUN/Creat Ratio 7.8 RATIO (10-20); Calcium,Total 8.6 mg/dL (7.6-11.0); Carbon Dioxide 24.3 mmol/L (21.0-32.0); Chloride 93 mmol/L (98-108); Estimated Creatinine Clearance 165.44 ml/min (50-250); Globulin 3.2 g/dL (2.2-4.2); Glucose 111 mg/dL (70-99); Potassium 4.1 mmol/L (3.3-5.1)
[2024-10-18 10:58] LABS: Alcohol, Blood (Medical)-Serum 414.0 mg/dL (<=10.0)
[2024-10-18 11:20] LABS: Barbiturate Urine NEGATIVE (< 200 ng/mL); Benzodiazepine Urine NEGATIVE (< 200 ng/mL); PCP Urine NEGATIVE (< 25 ng/mL); THC Urine NEGATIVE (< 50 ng/mL)
--- NOTE | 2024-10-18 11:23 | HP.PCM.HOS_ITS ---
HPI - General General Date of Admission: 10/18/24 Date of Service: 10/18/24 Chief Complaint: Desire for detoxification from alcohol HPI Narrative MARIA DE JESUS HOGAN, is a 58 M with history of alcohol dependence who was discharged from the hospital on 09/20/2024 following admission for alcohol withdrawal. Patient relapsed after his admission. He admitted to drinking 8-12 beers on a regular day. His last alcohol use was on the morning prior to being admitted to the hospital. Patient denied having any hallucinations. Admitted to being restless. Patient was admitted to regular nursing floor for further management [facility] Medical History Obesity (BMI 30.0-34.9) Tobacco dependence Alcohol abuse Anxiety Sleep apnea Smoker Hypertension TIA (transient ischemic attack) EtOH dependence Home Medications ?Medication ?Instructions ?Recorded ?Last Taken ?Type gabapentin 300 mg capsule 600 mg PO TID 09/17/2409/17 History melatonin 5 mg tablet 5 mg PO QHS 09/17/24 5 History omeprazole 20 mg tablet,delayed 20 mg PO DAILY 5 09/16/24 History release Allergy/AdvReac Type Severity Reaction Status Date / Time bee pollen Allergy Anaphylaxis Verified 10/18/24 09:47 nickel AdvReac Rash Verified 10/18/24 09:47 tramadol AdvReac Nausea Verified 10/18/24 09:47 Social History Smoking Status: Current every day smoker tobacco type: cigarettes ROS ROS Narrative GENERAL: denies fever, chills, night sweats, weight loss, anorexia HEENT: denies headache, sinus congestion, or drainage, dysphagia RESPIRATORY: denies cough, sputum production, CARDIAC: denies chest pain, palpitations, orthopnea, PND GASTROINTESTINAL: denies abdominal pain, nausea, vomiting, melena, GENITOURINARY: denies dysuria, urgency, frequency, heamaturia EXTREMITY: denies swelling MUSCULOSKELETAL: denies current joint pain or tenderness NEUROLOGIC: denies focal numbness, weakness, tingling HEMATOLOGIC: denies easy bruising and/or hemorrhage INTEGUMENT: denies rashes PSYCHIATRIC: denies suicidal or homicidal ideation Vital Signs Vital Signs Vital Signs: 10/18/24 09:46 10/18/24 10:00 10/18/24 10:46 Temperature 97 F L Temperature Source Temporal Pulse Rate 97 102 H 99 Respiratory Rate 14 20 H 18 Blood Pressure 133/92 H 122/80 H Blood Pressure Mean 105 94 Pulse Ox 91 87 96 Oxygen Delivery Method Room Air Room Air Room Air 10/18/24 11:00 Temperature Temperature Source Pulse Rate 96 Respiratory Rate 20 H Blood Pressure 122/80 H Blood Pressure Mean 94 Pulse Ox 95 Oxygen Delivery Method Room Air Weight Weight: 103.3 kg Body Mass Index (BMI) 31.7 Physical Exam Narrative GENERAL: Patient appears restless HEENT: Atraumatic; normocephalic EYES; Anicteric, Normal Conjunctiva NECK; supple, normal thyroid, RESPIRATORY: Diminished to auscultation CARDIOVASCULAR: Regular S1 S2, GI: soft, normoactive bowel sounds, : No Renal angle tenderness; EXTREMITIES: No edema, no clubbing, MUSCULOSKELETAL: no muscle wasting NEURO: Awake; no lateralizing signs. SKIN: No Rash PSYCH; Flat affect Results Lab / Micro Data 10/18/24 10:10 10/18/24 10:10 Labs: Laboratory Results - last 24 hr 10/18/24 10:10: WBC 6.5, RBC 4.95, Hgb 16.9 H, Hct 47.4, MCV 95.8 H, MCH 34.1 H, MCHC 35.7, RDW Std Deviation 47.0 H, RDW Coeff of [place] 13.4, Plt Count 137 L, MPV 8.5, Immature Gran % (Auto) 0.300, Neut % (Auto) 61.0, Lymph % (Auto) 27.5, Forrest % (Auto) 9.3, Eos % (Auto) 1.1, Baso % (Auto) 0.8, Absolute Neuts (auto) 4.0, Absolute Lymphs (auto) 1.80, Nucleated RBC % 0, Sodium 133, Potassium 4.1, C hloride 93 L, Carbon Dioxide 24.3, Anion Gap 16 H, BUN 5, Creatinine 0.61 L, Estim Creat Clear Calc 165.44, Est GFR (MDRD) Non-Af 113, BUN/Creatinine Ratio 7.8 L, Glucose 111 H, Calcium 8.6, Total Bilirubin 0.35, AST 55 H, ALT 42, A lkaline Phosphatase 137 H, Total Protein 7.3, Albumin 4.1, Globulin 3.2, Albumin/Globulin Ratio 1.3, Ethyl Alcohol 414.0 H* 10/18/24 10:56: Urine Opiates Screen NEGATIVE, U Buprenorphine Qual NEGATIVE, Ur Oxycodone Screen NEGATIVE, Urine Methadone Screen NEGATIVE, Urine Fentanyl Screen NEGATIVE, Ur Barbiturates Screen NEGATIVE, Ur Phencyclidine Scrn NEGATIVE, Ur Amphetamines Screen NEGATIVE, U Benzodiazepines Scrn NEGATIVE, Urine Cocaine Screen NEGATIVE, U Cannabinoids Screen NEGATIVE Assessment & Plan Assessment/Plan (1) Acute alcohol intoxication: (2) Admitted to alcohol detoxification center: PLAN: Plan Patient is a 58-year-old gentleman with history of chronic alcohol dependence admitted for medical stabilization 1. Chronic alcohol dependence at risk for alcohol withdrawal - Patient has been admitted for treatment with phenobarb taper in addition to adjuvant medications including gabapentin, Bentyl, hydroxyzine and clonidine as needed for alcohol withdrawal symptoms. Patient was also placed on thiamine and folic acid Consultation placed to 180 addiction medicine service 2. GERD ? On PPI 3. Class I obesity with BMI of 32 ? Weight loss advised 4. COPD ? Currently not in exacerbation aerosol treatments as needed 5. Tobacco dependence ? Counseled on cessation, offered nicotine patch for tobacco cravings 6. Obstructive sleep apnea ? Per history 7. Elevated transaminases ? Secondary to patient alcohol use we will monitor 8. DVT prophylaxis ? Low risk to encourage ambulation Charges/Coding Visit Charges Inpatient E&M: 48497 Init Hosp L2
--- OUTSIDE RECORDS SUMMARY | 2024-10-18 12:18 | XMS RPT_ITS | CCD ---
Author Organization [facility] Care Team Providers Care Vp Treasurer Name Role Phone Lynda Rasheed Primary Care Provider [phone] Kathya GALVEZ, Lynda Primary Care Provider [phone] Radha Wylie RCP Unavailable Unavailabl e [facility] Doctor, Out of Primary Care Provider Lolita Call, Dr. Azar Referring Provider [phone] Doe Oh DO Emergency Provider [phone] Joon Vinson DO Admit Provider Unavail able Dr. Joon Vinson DO Attending Provider Unav ailable Dr. Joon Vinson DO Other Provider Unavail able Dr. Bryan Cox DO Attending Provider [phone] Bryan Cox DO Other Provider [facility] Doctor, Out of Primary Care Unavailable Doe Oh Referring Unavailable Joon Vinson Consulting Unavailable Joon Vinson Admitting Unavailable Bryan Cox Attending Unavailable Bryan Cox Consulting Unavailable Bryan Cox Attending Unavailable Doe Oh Referring Unavailable [facility] Doctor, Out of Primary Care Unavailable Joon [...] Care Unavailable LISHNEVSKI, LYNDA Referring Unavailable MYRA DARDEN Attending Unavailable LISHNEVSKI, [...] Care Unavailable CATALINO WADDELL Attending Unavailable LISHNEVSKI, LYNAD Primary Care Unavailable VELLANKI, JONATAN Attending Unavailable [...] to adverse reactions to drug 5 [place] (11 sources) Honey bee venom Propensity to adverse reactions to drug 5 [place] (20 sources) nickel sulfate Drug Allergy 5 Rash [place] (20 sources) traMADol Drug Allergy 5 Nausea [place] (7 sources) Other Propensity to adverse reactions 5 Rash [place] (20 sources) Honey bee venom Propensity to adverse reactions [address] [facility] (2 sources) Bee pollen Drug Allergy 5 Anaphylaxis [facility] (2 sources) nickel Drug Allergy 5 Rash [facility] (1 source) Bee pollen Drug allergy (disorder) 5 [facility] Repository (1 source) nickel Drug Allergy 5 [facility] Repository (1 source) traMADol Drug Allergy 5 [facility] Repository NEGATED: Highlighted row has been ruled out!Unclassified (5 sources) Other Propensity to adverse reactions 5 Rash [facility] Medications Current Medications Medication Drug Class(es) Dates [...] {tbl} PO DAILY September 20, 2024 12:00am Stre-yku-ajhvqxf. No prescription required. multivitamin 1 tablet (1 [...] dose, Coverage: Varicella zoster, Infection Site: Mucocutaneous [id number] 200 actuat albuter ol 0.09 mg/actuat metered [...] 4 HOURS PRN, Shortness of Breath, Starting [facility] 06/09/20 at 1230 aluminum & magnesium hydroxide-simethicone [...] at 1926, For 1 dose, Please notify concrete boom operator attending if this has to be utilized for a seizure. For IV doses dilute dose with 1ml NS. Start: 05-07-2024 End: 05-10-2024 inject 1 mL by intramuscular injection once as needed 2 mg, IntraMUSCular, Once PRN, seizures, Starting on Sat05/07/24 at 2142, For 1 dose, Please notify concrete boom operator attending if this has to be utilized [...] 1 tablet by mouth. 0 06/07/2021 Active Multivitamin,Iv-Dcnm-Ywbhanw s 1 TABLET tablet (2 sources) Start: 07-20-2017 End: 09-17-2024 take 1 tablet by mouth once daily at mealtime Multivitamin,Ux-Vbuk-Dwfffdbo 1 TABLET tablet Discontinued 1 {tbl} PO [...] (Luminal) injection 65 mg polyethylene glycol 3350 21274 mg powder for oral solution (10 sources) [...] Facility Progress Noteon 09-29-2024 Progress Note Normal [facility] Phosphoruson 09-19-2024 Phosphate [Mass/Vol] 3.9 mg/dL Normal 2.7-4.5 [facility] Comment on above: Performed By: #### L 501.2300 #### [facility] [address] [place], [place] [address], [place], [address] Absolute lymphocyte countOrd ered By: Joon Quintero on 09-18-2024 Lymphocytes Auto (Unsp spec) [#/Vol] 1.21 10*3/uL 0.83-4.51 [facility] Absolute neutrophil countOrd ered By: Joon Quintero on 09-18-2024 Neutrophils (Bld) [#/Vol] 2.2 10*3/uL 2.0-7.7 [facility] Alcohol, Blood (Medical)-Ser umon 09-18-2024 SERUM ETOH 119.0 mg/dL High <=10.0 [facility] Comment on above: Result Comment: This test is for medical purposes only. The legal definition of intoxication varies according to local law. Performed By: #### L 501.9100 ####[facility] [address] [place], [address] Anion gap in Serum or Plasma Ordered By: Joon Quintero on 09-18-2024 Anion gap [Moles/Vol] 10 mmol/L 5- [facility] Automated lymphocyte count a s percentage of total leukocytesOrdered By: Joon Quintero on 09-18-2024 Lymphocytes/100 WBC Auto (Unsp spec) 28.3 % [facility] BUN/creatinine ratioOrdered By: Joon Quintero on 09-18-2024 Urea nitrogen/Creatinine [Mass ratio] 5.9 mg/mg Low - [facility] Basophil percentageOrdered B y: Joon Quintero on 09-18-2024 Basophils/100 WBC (Bld) 1.2 % High 0-1 [facility] Bilirubin, totalOrdered By: Joon Quintero on 09-18-2024 Bilirubin [Mass/Vol] 0.29 mg/dL 0.00-1.30 [facility] CBC W/Diff, Automatedon 08-31 Absolute Lymph 1.21 X10 3/uL Normal 0.83-4.51 [facility] Comment on above: Performed By: #### L 501.2300, L501.9520, L100.0100, L500.4050 #### [facility] [address] [place], [address] Absolute Neut 2.2 X10 3/uL Normal 2.0-7.7 [facility] Comment on above: Performed By: #### L 501.2300, L501.9520, L100.0100, L500.4050 #### [facility] [address] [place], [address] Basophils/100 WBC (Bld) 1.2 % High 0-1 [facility] Comment on above: Performed By: #### L 501.2300, L501.9520, L100.0100, L500.4050 #### [facility] [address] [place], [address] Eosinophils/100 WBC (Bld) 5.2 % High 0-5 [facility] Comment on above: Performed By: #### L 501.2300, L501.9520, L100.0100, L500.4050 #### [facility] [address] [place], [address] Erythrocyte distribution width (RBC) [Ratio] 13.6 % Normal 11.6-14.6 [facility] Comment on above: Performed By: #### L 501.2300, L501.9520, L100.0100, L500.4050 #### [facility] [address] [place], [address] Hematocrit (Bld) [Volume fraction] 47.3 % Normal 40-54 [facility] Comment on above: Performed By: #### L 501.2300, L501.9520, L100.0100, L500.4050 #### [facility] [address] [place], [address] Hemoglobin (Bld) [Mass/Vol] 16.2 g/dL Normal 13.0-16.5 [facility] Comment on above: Performed By: #### L 501.2300, L501.9520, L100.0100, L500.4050 #### [facility] [address] [place], [address] IG% 0.200 Normal 0.0-0.9 [facility] Comment on above: Result Comment: IG% - Immature Granulocytes (promyelocytes, myelocytes and metamyelocytes) > 1% indicates that a LEFT SHIFT is Present. Performed By: #### L 501.2300, L501.9520, L100.0100, L500.4050 #### [facility] [address] [place], [address] Lymphocytes/100 WBC (Bld) 28.3 % Normal 19-41 [facility] Comment on above: Performed By: #### L 501.2300, L501.9520, L100.0100, L500.4050 #### [facility] [address] [place], [address] MCH (RBC) [Entitic mass] 33.9 pg High 27.0-32.0 [facility] Comment on above: Performed By: #### L 501.2300, L501.9520, L100.0100, L500.4050 #### [facility] [address] [place], [address] MCHC (RBC) [Mass/Vol] 34.2 g/dL Normal 32-36 [facility] Comment on above: Performed By: #### L 501.2300, L501.9520, L100.0100, L500.4050 #### [facility] [address] [place], [address] MCV (RBC) [Entitic vol] 99.0 fL High 80-94 [facility] Comment on above: Performed By: #### L 501.2300, L501.9520, L100.0100, L500.4050 #### [facility] [address] [place], [address] Monocytes/100 WBC (Bld) 14.1 % High 0-10 [facility] Comment on above: Performed By: #### L 501.2300, L501.9520, L100.0100, L500.4050 #### [facility] [address] [place], [address] Neutrophils/100 WBC (Bld) 51.0 % Normal 47-70 [facility] Comment on above: Performed By: #### L 501.2300, L501.9520, L100.0100, L500.4050 #### [facility] [address] [place], [address] Nucleated RBC (Bld) [#/Vol] 0 10*3/uL Normal 0-5 [facility] Comment on above: Performed By: #### L 501.2300, L501.9520, L100.0100, L500.4050 #### [facility] [address] [place], [address] Platelet mean volume (Bld) [Entitic vol] 8.2 fL Normal 6.2-12.0 [facility] Comment on above: Performed By: #### L 501.2300, L501.9520, L100.0100, L500.4050 #### [facility] [address] [place], [address] Platelets (Bld) [#/Vol] 266 10*3/uL Normal 150-450 [facility] Comment on above: Performed By: #### L 501.2300, L501.9520, L100.0100, L500.4050 #### [facility] [address] [place], [address] RBC (Bld) [#/Vol] 4.78 10*6/uL Normal 4.6-6.2 [facility] Comment on above: Performed By: #### L 501.2300, [id number], L100.0100, L500.4050 #### [facility] [address] [place], [address] RDW SD 49.9 fl High 35.1-43.9 [facility] Comment on above: Performed By: #### L 501.2300, L501.9520, L100.0100, L500.4050 #### [facility] [address] [place], [address] WBC (Bld) [#/Vol] 4.3 10*3/uL Low 4.4-11.0 [facility] Comment on above: Performed By: #### L 501.2300, L501.9520, L100.0100, L500.4050 #### [facility] [address] [place], [address] Carbon dioxide, total [Moles /volume] in Central venous bloodOrdered By: Joon Quintero on 09-18-2024 CO2 [Moles/Vol] 28.4 mmol/L 21.0-32.0 [facility] Chloride assayOrdered By: Sawyer Quintero on 09-18-2024 Chloride [Moles/Vol] 99 mmol/L 98-108 [facility] Comprehensive Metabolic Prof ilon 09-18-2024 Albumin [Mass/Vol] 3.8 g/dL Normal 3.5-5.0 [facility] Comment on above: Performed By: #### L 501.2300, L501.9520, L100.0100, L500.4050 #### [facility] [address] [place], [address] Albumin/Globulin [Mass ratio] 1.3 {ratio} Normal 0.9-2.4 [facility] Comment on above: Performed By: #### L 501.2300, L501.9520, L100.0100, L500.4050 #### [facility] [address] [place], [address] ALK PHOS 103 U/L Normal 40-129 [facility] Comment on above: Performed By: #### L 501.2300, [id number], L100.0100, L500.4050 #### [facility] [address] [place], [address] ALT [Catalytic activity/Vol] 54 U/L High <=46 [facility] Comment on above: Performed By: #### L 501.2300, L501.9520, L100.0100, L500.4050 #### [facility] [address] [place], [address] AST [Catalytic activity/Vol] 50 U/L High <=37 [facility] Comment on above: Performed By: #### L 501.2300, L501.9520, L100.0100, L500.4050 #### [facility] [address] [place], [address] Bilirubin [Mass/Vol] 0.29 mg/dL Normal 0.00-1.30 [facility] Comment on above: Performed By: #### L 501.2300, L501.9520, L100.0100, L500.4050 #### [facility] [address] [place], [address] BUN/CRE 5.9 RATIO Low 10-20 [facility] Comment on above: Performed By: #### L 501.2300, L501.9520, L100.0100, L500.4050 #### [facility] [address] [place], [address] Calcium [Mass/Vol] 8.2 mg/dL Normal 7.6-11.0 [facility] Comment on above: Performed By: #### L 501.2300, L501.9520, L100.0100, L500.4050 #### [facility] [address] [place], [address] Chloride [Moles/Vol] 99 mmol/L Normal 98-108 [facility] Comment on above: Performed By: #### L 501.2300, L501.9520, L100.0100, L500.4050 #### [facility] [address] [place], [address] CO2 [Moles/Vol] 28.4 mmol/L Normal 21.0-32.0 [facility] Comment on above: Performed By: #### L 501.2300, L501.9520, L100.0100, L500.4050 #### [facility] [address] [place], [address] Creatinine [Mass/Vol] 0.63 mg/dL Low 0.70-1.20 [facility] Comment on above: Performed By: #### L 501.2300, L501.9520, L100.0100, L500.4050 #### [facility] [address] [place], [address] ECRCL 156.63 ml/min Normal 50-250 [facility] Comment on above: Performed By: #### L 501.2300, L501.9520, L100.0100, L500.4050 #### [facility] [address] [place], [address] GAP 10 Normal 5-15 [facility] Comment on above: Performed By: #### L 501.2300, L501.9520, L100.0100, L500.4050 #### [facility] [address] [place], [address] GFR/1.73 sq M.predicted among non-blacks MDRD (S/P/Bld) [Vol rate/Area] 112 mL/min/{1.73_m2} Normal >60 [facility] Comment on above: Result Comment: mL/m in/1.73m2 CKD-EPI Creatinine Equation (2020) Performed By: #### L 501.2300, L501.9520, L100.0100, L500.4050 #### [facility] [address] [place], [address] Globulin (S) [Mass/Vol] 2.9 g/dL Normal 2.2-4.2 [facility] Comment on above: Performed By: #### L 501.2300, L501.9520, L100.0100, L500.4050 #### [facility] [address] [place], [address] Glucose [Mass/Vol] 91 mg/dL Normal 70-99 [facility] Comment on above: Performed By: #### L 501.2300, L501.9520, L100.0100, L500.4050 #### [facility] [address] [place], [address] Potassium [Moles/Vol] 4.5 mmol/L Normal 3.3-5.1 [facility] Comment on above: Performed By: #### L 501.2300, L501.9520, L100.0100, L500.4050 #### [facility] [address] [place], [address] Sodium [Moles/Vol] 138 mmol/L Normal 133-145 [facility] Comment on above: Performed By: #### L 501.2300, L501.9520, L100.0100, L500.4050 #### [facility] [address] [place], [address] T PROT 6.7 g/dL Normal 5.9-8.4 [facility] Comment on above: Performed By: #### L 501.2300, L501.9520, L100.0100, L500.4050 #### [facility] [address] [place], [address] Urea nitrogen [Mass/Vol] 4 mg/dL Normal 4-19 [facility] Comment on above: Performed By: #### L 501.2300, L501.9520, L100.0100, L500.4050 #### [facility] [address] [place], [address] Eosinophil percentageOrdered By: Joon Quintero on 09-18-2024 Eosinophils/100 WBC (Bld) 5.2 % High 0-5 [facility] Erythrocyte distribution wid th ratioOrdered By: Joon Quintero on 09-18-2024 Erythrocyte distribution width (RBC) [Ratio] 13.6 % 11.6-14.6 [facility] Erythrocyte distribution wid th standard deviationOrdered By: Joon Quintero on 09-18-2024 Erythrocyte distribution width (RBC) [Ratio] 49.9 fl High 35.1-43.9 [facility] Glomerular filtration rate ( GFR) estimation/1.73 sq m using serum, plasma, or whole bOrdered By: Joon Quintero on 09-18-2024 GFR/1.73 sq M.predicted among non-blacks MDRD (S/P/Bld) [Vol rate/Area] 112 mL/min/{1.73_m2} >60 [facility] Comment on above: mL/min/1.73m2 CKD-EP I Creatinine Equation (2020) Hematocrit Auto (Bld) [Volum e fraction]Ordered By: Joon Quintero on 09-18-2024 Hematocrit (Bld) [Volume fraction] 47.3 % 40-54 [facility] Hemoglobin measurementOrdere d By: Joon Quintero on 09-18-2024 Hemoglobin (Bld) [Mass/Vol] 16.2 g/dL 13.0-16.5 [facility] Immature granulocytes/100 WB C Auto (Bld)Ordered By: Joon Quintero on 09-18-2024 Immature granulocytes/100 WBC (Bld) 0.200 % 0.0-0.9 [facility] Comment on above: IG% - Immature Granu locytes (promyelocytes, myelocytes and metamyelocytes) > 1% indicates that a LEFT SHIFT is Present. Laboratory - Chemistry and C hemistry - challengeOrdered By: Joon Quintero on 09-18-2024 AST [Catalytic activity/Vol] 50 U/L High <38 [facility] MCV (mean corpuscular volume ) determinationOrdered By: Joon Quintero on 09-18-2024 MCV (RBC) [Entitic vol] 99.0 fL High 80-94 [facility] Mean corpuscular hemoglobin (MCH) determinationOrdered By: Joon Quintero on 09-18-2024 MCH (RBC) [Entitic mass] 33.9 pg High 27.0-32.0 [facility] Mean corpuscular hemoglobin concentration (MCHC) determinationOrdered By: Joon Quintero on 09-18-2024 MCHC (RBC) [Mass/Vol] 34.2 g/dL 32-36 [facility] Mean platelet volume determi nationOrdered By: Joon Quintero on 09-18-2024 Platelet mean volume (Bld) [Entitic vol] 8.2 fL 6.2-12.0 [facility] Monocyte percentageOrdered B y: Joon Quintero on 09-18-2024 Monocytes/100 WBC (Bld) 14.1 % High 0-10 [facility] Neutrophil percentageOrdered By: Joon Quintero on 09-18-2024 Neutrophils/100 WBC (Bld) 51.0 % 47-70 [facility] Nucleated red blood cell per centageOrdered By: Joon Quintero on 09-18-2024 Nucleated RBC/100 WBC (Bld) [Ratio] 0 % 0-5 [facility] Phosphoruson 09-18-2024 Phosphate [Mass/Vol] 4.6 mg/dL High 2.7-4.5 [facility] Comment on above: Performed By: #### L 501.2300, L501.9520, L100.0100, L500.4050 #### [facility] [address] [place] [address], [address] Platelet countOrdered By: Sawyer Quintero on 09-18-2024 Platelets (Bld) [#/Vol] 266 10*3/uL 150-450 [facility] Potassium measurement (mass/ volume)Ordered By: Joon Quintero on 09-18-2024 Potassium (Unsp spec) [Mass/Vol] 4.5 mmol/L 3.3-5.1 [facility] RBC Auto (Bld) [#/Vol]Ordere d By: Joon Quintero on 09-18-2024 RBC (Bld) [#/Vol] 4.78 10*6/uL 4.6-6.2 [facility] Serum creatinine measurement (mass/volume)Ordered By: Joon Quintero on 09-18-2024 Creatinine [Mass/Vol] 0.63 mg/dL Low 0.70-1.20 [facility] Serum globulin measurementOr dered By: Joon Quintero on 09-18-2024 Globulin (S) [Mass/Vol] 2.9 g/dL 2.2-4.2 [facility] Serum glucose measurement (m ass/volume)Ordered By: Joon Quintero on 09-18-2024 Glucose [Mass/Vol] 91 mg/dL 70-99 [facility] Serum or plasma alanine kendrick otransferase (ALT) measurementOrdered By: Joon Quintero on 09-18-2024 ALT [Catalytic activity/Vol] 54 U/L High <47 [facility] Serum or plasma albumin chan urement (mass/volume)Ordered By: Joon Quintero on 09-18-2024 Albumin [Mass/Vol] 3.8 g/dL 3.5-5.0 [facility] Serum or plasma albumin/glob ulin mass ratioOrdered By: Joon Quintero on 09-18-2024 Albumin/Globulin [Mass ratio] 1.3 {ratio} 0.9-2.4 [facility] Serum or plasma alkaline reynold sphatase measurementOrdered By: Joon Quintero on 09-18-2024 ALP [Catalytic activity/Vol] 103 U/L 40-129 [facility] Serum or plasma calcium chna urement (mass/volume)Ordered By: Joon Quintero on 09-18-2024 Calcium [Mass/Vol] 8.2 mg/dL 7.6-11.0 [facility] Serum or plasma ethanol chan urement (mass/volume)Ordered By: Joon Quintero on 09-18-2024 Ethanol [Mass/Vol] 119.0 mg/dL High <10.1 [facility] Comment on above: This test is for med ical purposes only. The legal definition of intoxication varies according to local law. Serum or plasma urea nitroge n measurement (mass/volume)Ordered By: Joon Quintero on 09-18-2024 Urea nitrogen [Mass/Vol] 4 mg/dL 4-19 [facility] Sodium levelOrdered By: Amor Quintero on 09-18-2024 Sodium [Moles/Vol] 138 mmol/L 133-145 [facility] TSH DL <= 0.005 mIU/L QnOrde red By: Joon Quintero on 09-18-2024 TSH Qn 2.810 uIU/mL 0.300-4.200 [facility] Thyroid Stim Hormone (TSH)on 09-18-2024 TSH 2.810 uIU/mL Normal 0.300-4.200 [facility] Comment on above: Performed By: #### L 501.2300, L501.9520, L100.0100, L500.4050 #### [facility] [address] [place], [place], [id number] Total proteinOrdered By: Frantz Andrewso on 09-18-2024 Protein [Mass/Vol] 6.7 g/dL 5.9-8.4 [facility] White blood cell (WBC) count Ordered By: Joon Leon on 09-18-2024 WBC (Bld) [#/Vol] 4.3 10*3/uL Low 4.4-11.0 [facility] Absolute lymphocyte countOrd ered By: Anat Ni on 09-17-2024 Lymphocytes Auto (Unsp spec) [#/Vol] 2.26 10*3/uL 0.83-4.51 [facility] Absolute neutrophil countOrd ered By: Anat Ni on 09-17-2024 Neutrophils (Bld) [#/Vol] 3.8 10*3/uL 2.0-7.7 [facility] Alcohol, Blood (Medical)-Ser umon 09-17-2024 SERUM ETOH 368.0 mg/dL Invalid Interpretation Code <=10.0 [facility] Comment on above: Result Comment: Crit ical Result(s) Called LSPARR at: 1942 by: CHRISTA??Results read back by same. This test is for medical purposes only. The legal definition of intoxication varies according to local law. Performed By: #### L 501.9100, L100.0100, L505.5000 ####[facility] [id number] [place], [place], [id number] Amphetamine detection with 1 000 ng/mL as cutoffOrdered By: Anat iN on 09-17-2024 Amphetamines Screen method >1000 ng/mL Ql (U) Negative < 200 ng/mL [facility] Anion gap in Serum or Plasma Ordered By: Anat Ni on 09-17-2024 Anion gap [Moles/Vol] 14 mmol/L 5- [facility] Automated lymphocyte count a s percentage of total leukocytesOrdered By: Anat Ni on 09-17-2024 Lymphocytes/100 WBC Auto (Unsp spec) 31.7 % [facility] BUN/creatinine ratioOrdered By: Anat Ni on 09-17-2024 Urea nitrogen/Creatinine [Mass ratio] 6.5 mg/mg Low - [facility] Basophil percentageOrdered B y: Anat Ni on 09-17-2024 Basophils/100 WBC (Bld) 0.7 % 0-1 [facility] Bilirubin, totalOrdered By: Anat Ni on 09-17-2024 Bilirubin [Mass/Vol] 0.33 mg/dL 0.00-1.30 [facility] CBC W/Diff, Automatedon 08-30 Absolute Lymph 2.26 X10 3/uL Normal 0.83-4.51 [facility] Comment on above: Performed By: #### L 501.9100, L100.0100, L505.5000 #### [facility] [address] [place], [address] Absolute Neut 3.8 X10 3/uL Normal 2.0-7.7 [facility] Comment on above: Performed By: #### L 501.9100, L100.0100, L505.5000 #### [facility] [address] [place], [address] Basophils/100 WBC (Bld) 0.7 % Normal 0-1 [facility] Comment on above: Performed By: #### L 501.9100, L100.0100, L505.5000 #### [facility] [address] [place], [address] Eosinophils/100 WBC (Bld) 2.5 % Normal 0-5 [facility] Comment on above: Performed By: #### L 501.9100, L100.0100, L505.5000 #### [facility] [address] [place], [address] Erythrocyte distribution width (RBC) [Ratio] 13.4 % Normal 11.6-14.6 [facility] Comment on above: Performed By: #### L 501.9100, L100.0100, L505.5000 #### [facility] [address] [place], [address] Hematocrit (Bld) [Volume fraction] 49.4 % Normal 40-54 [facility] Comment on above: Performed By: #### L 501.9100, L100.0100, L505.5000 #### [facility] [address] [place], [address] Hemoglobin (Bld) [Mass/Vol] 17.1 g/dL High 13.0-16.5 [facility] Comment on above: Performed By: #### L 501.9100, L100.0100, L505.5000 #### [facility] [address] [place], [address] IG% 0.300 Normal 0.0-0.9 [facility] Comment on above: Result Comment: IG% - Immature Granulocytes (promyelocytes, myelocytes and metamyelocytes) > 1% indicates that a LEFT SHIFT is Present. Performed By: #### L 501.9100, L100.0100, L505.5000 #### [facility] [address] [place], [address] Lymphocytes/100 WBC (Bld) 31.7 % Normal 19-41 [facility] Comment on above: Performed By: #### L 501.9100, L100.0100, L505.5000 #### [facility] [address] [place], [address] MCH (RBC) [Entitic mass] 33.5 pg High 27.0-32.0 [facility] Comment on above: Performed By: #### L 501.9100, L100.0100, L505.5000 #### [facility] [address] [place], [address] MCHC (RBC) [Mass/Vol] 34.6 g/dL Normal 32-36 [facility] Comment on above: Performed By: #### L 501.9100, L100.0100, L505.5000 #### [facility] [address] [place], [address] MCV (RBC) [Entitic vol] 96.7 fL High 80-94 [facility] Comment on above: Performed By: #### L 501.9100, L100.0100, L505.5000 #### [facility] [address] [place], [address] Monocytes/100 WBC (Bld) 11.8 % High 0-10 [facility] Comment on above: Performed By: #### L 501.9100, L100.0100, L505.5000 #### [facility] [address] [place], [address] Neutrophils/100 WBC (Bld) 53.0 % Normal 47-70 [facility] Comment on above: Performed By: #### L 501.9100, L100.0100, L505.5000 #### [facility] [address] [place], [address] Nucleated RBC (Bld) [#/Vol] 0 10*3/uL Normal 0-5 [facility] Comment on above: Performed By: #### L 501.9100, L100.0100, L505.5000 #### [facility] [address] [place], [address] Platelet mean volume (Bld) [Entitic vol] 8.2 fL Normal 6.2-12.0 [facility] Comment on above: Performed By: #### L 501.9100, L100.0100, L505.5000 #### [facility] [address] [place], [address] Platelets (Bld) [#/Vol] 281 10*3/uL Normal 150-450 [facility] Comment on above: Performed By: #### L 501.9100, L100.0100, L505.5000 #### [facility] [address] [place], [address] RBC (Bld) [#/Vol] 5.11 10*6/uL Normal 4.6-6.2 [facility] Comment on above: Performed By: #### L 501.9100, L100.0100, L505.5000 #### [facility] [address] [place], [address] RDW SD 48.2 fl High 35.1-43.9 [facility] Comment on above: Performed By: #### L 501.9100, L100.0100, L505.5000 #### [facility] [address] [place], [address] WBC (Bld) [#/Vol] 7.1 10*3/uL Normal 4.4-11.0 [facility] Comment on above: Performed By: #### L 501.9100, L100.0100, L505.5000 #### [facility] [address] [place], [address] Carbon dioxide, total [Moles /volume] in Central venous bloodOrdered By: Anat Ni on 09-17-2024 CO2 [Moles/Vol] 22.2 mmol/L 21.0-32.0 [facility] Chloride assayOrdered By: Sara Ni on 09-17-2024 Chloride [Moles/Vol] 94 mmol/L Low 98-108 [facility] Comprehensive Metabolic Prof ilon 09-17-2024 Albumin [Mass/Vol] 4.1 g/dL Normal 3.5-5.0 [facility] Comment on above: Performed By: #### L 500.4050 ####[facility] [address] [place], [address] Albumin/Globulin [Mass ratio] 1.3 {ratio} Normal 0.9-2.4 [facility] Comment on above: Performed By: #### L 500.4050 ####[facility] [address] [place], [address] ALK PHOS 116 U/L Normal 40-129 [facility] Comment on above: Performed By: #### L 500.4050 ####[facility] [address] [place], [address] ALT [Catalytic activity/Vol] 64 U/L High <=46 [facility] Comment on above: Performed By: #### L 500.4050 ####[facility] [address] [place], [address] AST [Catalytic activity/Vol] 63 U/L High <=37 [facility] Comment on above: Result Comment: Hemo lysis present, Results??could be affected. ?? Performed By: #### L 500.4050 ####[facility] [address] [place], [address] Bilirubin [Mass/Vol] 0.33 mg/dL Normal 0.00-1.30 [facility] Comment on above: Performed By: #### L 500.4050 ####[facility] [address] [place], [address] BUN/CRE 6.5 RATIO Low 10-20 [facility] Comment on above: Performed By: #### L 500.4050 ####[facility] [address] [place], [address] Calcium [Mass/Vol] 8.7 mg/dL Normal 7.6-11.0 [facility] Comment on above: Performed By: #### L 500.4050 ####[facility] [address] [place], [address] Chloride [Moles/Vol] 94 mmol/L Low 98-108 [facility] Comment on above: Performed By: #### L 500.4050 ####[facility] [address] [place], [address] CO2 [Moles/Vol] 22.2 mmol/L Normal 21.0-32.0 [facility] Comment on above: Performed By: #### L 500.4050 ####[facility] [address] [place], [address] Creatinine [Mass/Vol] 0.60 mg/dL Low 0.70-1.20 [facility] Comment on above: Performed By: #### L 500.4050 ####[facility] [address] [place], [address] ECRCL 165.82 ml/min Normal 50-250 [facility] Comment on above: Performed By: #### L 500.4050 ####[facility] [address] [place], [address] GAP 14 Normal 5-15 [facility] Comment on above: Performed By: #### L 500.4050 ####[facility] [address] [place], [address] GFR/1.73 sq M.predicted among non-blacks MDRD (S/P/Bld) [Vol rate/Area] 113 mL/min/{1.73_m2} Normal >60 [facility] Comment on above: Result Comment: mL/m in/1.73m2 CKD-EPI Creatinine Equation (2020) Performed By: #### L 500.4050 ####[facility] [address] [place], [address] Globulin (S) [Mass/Vol] 3.3 g/dL Normal 2.2-4.2 [facility] Comment on above: Performed By: #### L 500.4050 ####[facility] [address] [place], [address] Glucose [Mass/Vol] 176 mg/dL High 70-99 [facility] Comment on above: Performed By: #### L 500.4050 ####[facility] [address] [place], [address] Potassium [Moles/Vol] 4.5 mmol/L Normal 3.3-5.1 [facility] Comment on above: Result Comment: Hemo lysis present, Results??could be affected. ?? Performed By: #### L 500.4050 ####[facility] [address] [place], [address] Sodium [Moles/Vol] 131 mmol/L Low 133-145 [facility] Comment on above: Performed By: #### L 500.4050 ####[facility] [address] [place], [address] T PROT 7.4 g/dL Normal 5.9-8.4 [facility] Comment on above: Performed By: #### L 500.4050 ####[facility] [address] [place], [address] Urea nitrogen [Mass/Vol] 4 mg/dL Normal 4-19 [facility] Comment on above: Performed By: #### L 500.4050 ####[facility] [address] [place], [address] Emergency Department Summary on 09-17-2024 Emergency Department Summary [facility] Medical Records Department [address] [place] [address] Emergency Department Summary 09/17/24 MR#: [id number] Acct: [id number] Name: MARIA DE JESUS HOGAN Rep #: [id number] : 1965 58 From: Doe Call PCP: OUT OF TOWN DOCTOR Status:ADM IN Location: MS3 [id number] [facility] History of Present Illness Chief Complaint: Substance Abuse Narrative Narrative: 58-year-old male has a history of alcoholism. He drinks 6-9 tall boy beers a day and states his last drink was about 20 minutes ago. He is here requesting alcohol detox. He detoxed at [place] several years ago and states he detoxed [...] breath, abdominal, vomiting, hematemesis, melena or hematochezia. [facility] Medical History (Updated 09/17/24 @ 21:09 by [...] % (Auto) 53.0 Lymph % (Auto) 31.7 Coos % (Auto) 11.8 H Eos % (Auto) [...] Alkaline Phosphatase (more content not included)... Normal [facility] Eosinophil percentageOrdered By: Anat Ni on 09-17-2024 Eosinophils/100 WBC (Bld) 2.5 % 0-5 [facility] Erythrocyte distribution wid th ratioOrdered By: Anatchika Ni on 09-17-2024 Erythrocyte distribution width (RBC) [Ratio] 13.4 % 11.6-14.6 [facility] Erythrocyte distribution wid th standard deviationOrdered By: Anat Ni on 09-17-2024 Erythrocyte distribution width (RBC) [Ratio] 48.2 fl High 35.1-43.9 [facility] Glomerular filtration rate ( GFR) estimation/1.73 sq m using serum, plasma, or whole bOrdered By: Anat Ni on 09-17-2024 GFR/1.73 sq M.predicted among non-blacks MDRD (S/P/Bld) [Vol rate/Area] 113 mL/min/{1.73_m2} >60 [facility] Comment on above: mL/min/1.73m2 CKD-EP I Creatinine Equation (2020) H AND P Exam - Hospitaliston 09-17-2024 H&P Exam - Hospitalist [facility] Medical Records Department [address] [place] [address] H P Exam - Hospitalist 09/17/241944 MR#: [id number] Acct: [id number] Name: MARIA DE JESUS HOGAN Rep #: [id number] : 1965 58 From: Joon Vinson DO PCP: OUT OF TOWN DOCTOR Status:ADM IN Location: MS3 [id number] HPI - General General Date of Admission: [...] and mild alcoholic hepatitis who presents to [facility] once again requesting alcohol detoxification. Mr. Hogan [...] is expected to extend beyond 2 midnights. [facility] Medical History EtOH dependence Home Medications ???Medication [...] non-tender and (more content not included)... Normal [facility] Hematocrit Auto (Bld) [Volum e fraction]Ordered By: Anat Ni on 09-17-2024 Hematocrit (Bld) [Volume fraction] 49.4 % 40-54 [facility] Hemoglobin measurementOrdere d By: Anat Ni on 09-17-2024 Hemoglobin (Bld) [Mass/Vol] 17.1 g/dL High 13.0-16.5 [facility] Immature granulocytes/100 WB C Auto (Bld)Ordered By: Anat Ni on 09-17-2024 Immature granulocytes/100 WBC (Bld) 0.300 % 0.0-0.9 [facility] Comment on above: IG% - Immature Granu locytes (promyelocytes, myelocytes and metamyelocytes) > 1% indicates that a LEFT SHIFT is Present. International normalized rat io (INR) calculationOrdered By: Joon Quintero on 09-17-2024 INR Coag (Bld) [Relative time] 0.9 {INR} [facility] - Chemistry and C hemistry - challengeOrdered By: Anat Ni on 09-17-2024 AST [Catalytic activity/Vol] 63 U/L High <38 [facility] Comment on above: Hemolysis present, R esults could be affected. MCV (mean corpuscular volume ) determinationOrdered By: Anat Ni on 09-17-2024 MCV (RBC) [Entitic vol] 96.7 fL High 80-94 [facility] Magnesiumon 09-17-2024 Magnesium [Mass/Vol] 2.1 mg/dL Normal 1.5-2.2 [facility] Comment on above: Performed By: #### L 300.3900, L501.5200 ####[facility] [address] [place], [address] Magnesium measurement (mass/ volume)Ordered By: Joon Quintero on 09-17-2024 Magnesium (Unsp spec) [Mass/Vol] 2.1 mg/dL 1.5-2.2 [facility] Mean corpuscular hemoglobin (MCH) determinationOrdered By: Anat Ni on 09-17-2024 MCH (RBC) [Entitic mass] 33.5 pg High 27.0-32.0 [facility] Mean corpuscular hemoglobin concentration (MCHC) determinationOrdered By: Anat Ni on 09-17-2024 MCHC (RBC) [Mass/Vol] 34.6 g/dL 32-36 [facility] Mean platelet volume determi nationOrdered By: Anat Raine on 09-17-2024 Platelet mean volume (Bld) [Entitic vol] 8.2 fL 6.2-12.0 [facility] Monocyte percentageOrdered B y: Anat Raine on 09-17-2024 Monocytes/100 WBC (Bld) 11.8 % High 0-10 [facility] Neutrophil percentageOrdered By: Anatchika Ni on 09-17-2024 Neutrophils/100 WBC (Bld) 53.0 % 47-70 [facility] No Panel InformationOrdered By: Anatchika Ni on 09-17-2024 Urine Buprenorphine Qualitative Negative < 200 ng/mL [facility] Urine Oxycodone Screen Negative < 100 ng/mL [facility] Nucleated red blood cell per centageOrdered By: Anatchika Ni on 09-17-2024 Nucleated RBC/100 WBC (Bld) [Ratio] 0 % 0-5 [facility] Platelet countOrdered By: Sara Ni on 09-17-2024 Platelets (Bld) [#/Vol] 281 10*3/uL 150-450 [facility] Potassium measurement (mass/ volume)Ordered By: Anatchika Ni on 09-17-2024 Potassium (Unsp spec) [Mass/Vol] 4.5 mmol/L 3.3-5.1 [facility] Comment on above: Hemolysis present, R esults could be affected. Prothrombin Time w/INRon INR Coag (PPP) [Relative time] 0.9 {INR} Normal [facility] Comment on above: Performed By: #### L 300.3900, L501.5200 ####[facility] [address] [place], [address] PT Coag (PPP) [Time] 12.8 s Normal 11.7-14.9 [facility] Comment on above: Performed By: #### L 300.3900, L501.5200 ####[facility] [address] [place], [address] Prothrombin timeOrdered By: Joon Quintero on 09-17-2024 PT Coag (PPP) [Time] 12.8 s 11.7-14.9 [facility] Quantitative urine opiates m easurementOrdered By: Anat Ni on 09-17-2024 Opiates Ql (U) Negative < 300 ng/mL [facility] RBC Auto (Bld) [#/Vol]Ordere d By: Anat Ni on 09-17-2024 RBC (Bld) [#/Vol] 5.11 10*6/uL 4.6-6.2 [facility] Screening urine fentanyl tari surementOrdered By: Anat Ni on 09-17-2024 fentaNYL Screen Ql (U) Negative [facility] Serum creatinine measurement (mass/volume)Ordered By: Anat Ni on 09-17-2024 Creatinine [Mass/Vol] 0.60 mg/dL Low 0.70-1.20 [facility] Serum globulin measurementOr dered By: Anat Ni on 09-17-2024 Globulin (S) [Mass/Vol] 3.3 g/dL 2.2-4.2 [facility] Serum glucose measurement (m ass/volume)Ordered By: Anat Ni on 09-17-2024 Glucose [Mass/Vol] 176 mg/dL High 70-99 [facility] Serum or plasma alanine kendrick otransferase (ALT) measurementOrdered By: Anat Ni on 09-17-2024 ALT [Catalytic activity/Vol] 64 U/L High <47 [facility] Serum or plasma albumin chan urement (mass/volume)Ordered By: Anat Ni on 09-17-2024 Albumin [Mass/Vol] 4.1 g/dL 3.5-5.0 [facility] Serum or plasma albumin/glob ulin mass ratioOrdered By: Anat Ni on 09-17-2024 Albumin/Globulin [Mass ratio] 1.3 {ratio} 0.9-2.4 [facility] Serum or plasma alkaline reynold sphatase measurementOrdered By: Anat Ni on 09-17-2024 ALP [Catalytic activity/Vol] 116 U/L 40-129 [facility] Serum or plasma calcium chan urement (mass/volume)Ordered By: Anat Ni on 09-17-2024 Calcium [Mass/Vol] 8.7 mg/dL 7.6-11.0 [facility] Serum or plasma ethanol chan urement (mass/volume)Ordered By: Anat Ni on 09-17-2024 Ethanol [Mass/Vol] 368.0 mg/dL High <10.1 [facility] Comment on above: Critical Result(s) C delvisd LSPARR at: 1940 by: CHRISTA Results read back by same.This test is for medical purposes only. The legal definition of intoxication varies according to local law. Serum or plasma urea nitroge n measurement (mass/volume)Ordered By: Anat Ni on 09-17-2024 Urea nitrogen [Mass/Vol] 4 mg/dL 4- [facility] Sodium levelOrdered By: Anat Ni on 09-17-2024 Sodium [Moles/Vol] 131 mmol/L Low 133-145 [facility] Total proteinOrdered By: Mariann Ni on 09-17-2024 Protein [Mass/Vol] 7.4 g/dL 5.9-8.4 [facility] Urine Drug Screen (VISTA)on 09-17-2024 AMPHETAMINES Negative Normal <1000 ng/mL [facility] Comment on above: Performed By: #### L 501.9100, L100.0100, L505.5000 #### [facility] [address] [place], [place], [address] BARBITIURATES Negative Normal < 200 ng/mL [facility] Comment on above: Performed By: #### L 501.9100, L100.0100, L505.5000 #### [facility] [address] [place], [address] BENZODIAZIPINE Negative Normal < 200 ng/mL [facility] Comment on above: Performed By: #### L 501.9100, L100.0100, L505.5000 #### [facility] [address] [place], [address] BUP Ur Drug Scr Negative Normal < 200 ng/mL [facility] Comment on above: Performed By: #### L 501.9100, L100.0100, L505.5000 #### [facility] [address] [place], [address] COCAINE Negative Normal < 300 ng/mL [facility] Comment on above: Performed By: #### L 501.9100, L100.0100, L505.5000 #### [facility] [address] [place], [address] Fentanyl Negative Normal [facility] Comment on above: Performed By: #### L 501.9100, L100.0100, L505.5000 #### [facility] [address] [place], [address] METHADONE Negative Normal < 300 ng/mL [facility] Comment on above: Performed By: #### L 501.9100, L100.0100, L505.5000 #### [facility] [address] [place], [address] OPIATES Negative Normal < 300 ng/mL [facility] Comment on above: Performed By: #### L 501.9100, L100.0100, L505.5000 #### [facility] [address] [place], [address] OXYCODONE Negative Normal < 100 ng/mL [facility] Comment on above: Performed By: #### L 501.9100, L100.0100, L505.5000 #### [facility] [address] [place], [address] PCP Negative Normal < 25 ng/mL [facility] Comment on above: Performed By: #### L 501.9100, L100.0100, L505.5000 #### [facility] [address] [place], [address] THC Negative Normal < 50 ng/mL [facility] Comment on above: Performed By: #### L 501.9100, L100.0100, L505.5000 #### [facility] [place], [address] Urine benzodiazepine levelOr dered By: Anat Ni on 09-17-2024 Benzodiazepines Ql (U) Negative < 200 ng/mL [facility] Urine cocaine levelOrdered B y: Anat Ni on 09-17-2024 Cocaine Ql (U) Negative < 300 ng/mL [facility] Urine ynfdd-5-zsqcqpwbuuhagc abinol (THC) measurementOrdered By: Anat Ni on 09-17-2024 Cannabinoids Screen Ql (U) Negative < 50 ng/mL [facility] Urine phencyclidine (PCP) de tectionOrdered By: Anat Ni on 09-17-2024 Phencyclidine Ql (U) Negative < 25 ng/mL [facility] White blood cell (WBC) count Ordered By: Anat Ni on 09-17-2024 WBC (Bld) [#/Vol] 7.1 10*3/uL 4.4-11.0 [facility] 36on 08-17-2024 [address] [facility] 08-14-2024 36 [facility] Progress Noteon 08-14-2024 Progress Note Normal [facility] Progress Noteon 08-13-2024 Progress Note Missed Session Unexcused Pt did not call or show for Scheduled Assessment on this date. [facility] 36on 08-10-2024 36 [facility] 36 [facility] 36 [facility] 36 [facility] ED Nursing Noteon 08-10-2024 ED Nursing Note Recently diagnosed with shingles and is here for increasing pain to area on abdomen. Normal [facility] ED Provider Noteon ED Provider Note Normal [facility] 36on 08-07-2024 36 Normal [facility] 30on 08-06-2024 30 Normal [facility] [id number] 08-06-2024 [id number] Social work consult placed for patient. None of the 5 areas of S NAHOMY noted at current time. Social work consult cleared Normal [facility] [id number] Normal [facility] COMPREHENSIVE METABOLIC PANE Arnulfo 08-06-2024 Albumin [Mass/Vol] 3.3 g/dL Low 3.5-5.0 [facility] Comment on above: Performed By: #### L AB17 ####Philosophy Instructor: CECI DUPREE ([id number])[facility])[address] [place] [address] ALP [Catalytic activity/Vol] 96 U/L Normal 40-150 [facility] Comment on above: Performed By: #### L AB17 ####Philosophy Instructor: CECI DUPREE ([id number])[facility])[address] [place] [address] ALT [Catalytic activity/Vol] 28 U/L Normal <40 [facility] Comment on above: Performed By: #### L AB17 ####Philosophy Instructor: CECI DUPREE ([id number])[facility])[address] [place] [address] Anion gap [Moles/Vol] 7 mmol/L Normal 3-13 [facility] Comment on above: Performed By: #### L AB17 ####Philosophy Instructor: CECI DUPREE ([id number])[facility])[address] [place] [address] AST [Catalytic activity/Vol] 38 U/L High <34 [facility] Comment on above: Performed By: #### L AB17 ####Philosophy Instructor: CECI DUPREE ([id number])[facility])[address] [place] [address] Bilirubin [Mass/Vol] 0.5 mg/dL Normal <1.2 [facility] Comment on above: Performed By: #### L AB17 ####Philosophy Instructor: CECI DUPREE ([id number])[facility] ([facility])[address] [place] [address] Calcium [Mass/Vol] 8.8 mg/dL Normal 8.4-10.2 [facility] Comment on above: Performed By: #### L AB17 ####Philosophy Instructor: CECI DUPREE ([id number])[facility] ([facility])[address] [place] [address] [place] Chloride [Moles/Vol] 100 mmol/L Normal 98-107 [facility] Comment on above: Performed By: #### L AB17 ####Philosophy Instructor: CECI DUPREE ([id number])[facility] ([facility])[address] [place] [address] CO2 [Moles/Vol] 31 mmol/L High 22-29 [facility] Comment on above: Performed By: #### L AB17 ####Philosophy Instructor: CECI DUPREE ([id number])[facility] ([facility])[address] [place] [address] Creatinine [Mass/Vol] 0.75 mg/dL Normal 0.72-1.25 [facility] Comment on above: Performed By: #### L [id number] ####Philosophy Instructor: CECI DUPREE ([phone])[facility])[address] [place] [address] GLOMERULAR FILTRATION RATE ML/MIN/1.73 SQ M.PREDICTED >90.0 Normal >60.0 [facility] Comment on above: Result Comment: Calc ulation based on the Chronic Kidney Disease Epidemiology Collaboration (CKD-EPI) equation refit without adjustment for race Performed By: #### L [id number] ####Philosophy Instructor: CECI DUPREE ([id number])[facility] ([facility])[address] [place] [address] [place] Glucose [Mass/Vol] 111 mg/dL High 74-100 [facility] Comment on above: Performed By: #### L [id number] ####Philosophy Instructor: CECI DUPREE ([id number])[facility] ([facility])[address] [place] [address] Potassium [Moles/Vol] 4.1 mmol/L Normal 3.5-5.1 [facility] Comment on above: Result Comment: [facility] potassium values may be up to 0.5 mmol/L lower than serum values. Performed By: #### L [id number] ####Philosophy Instructor: CECI DUPREE ([id number])[facility])[address] [place] [address] Protein [Mass/Vol] 6.5 g/dL Normal 6.4-8.3 [facility] Comment on above: Performed By: #### L [id number] ####Philosophy Instructor: CECI DUPREE ([id number])[facility])[address] [place] [address] Sodium [Moles/Vol] 138 mmol/L Normal 136-145 [facility] Comment on above: Performed By: #### L [id number] ####Philosophy Instructor: CECI DUPREE ([id number])[facility])[address] [place] [address] Urea nitrogen [Mass/Vol] 5 mg/dL Low 9-23 [facility] Comment on above: Performed By: #### L [id number] ####Philosophy Instructor: CECI DUPREE ([id number])[facility])[address] [place] [address] Comprehensive metabolic 1998 panelon 08-06-2024 Albumin [Mass/Vol] 3.3 g/dL Low 3.5 - 5.0 g/dL [facility] ALP [Catalytic activity/Vol] 96 U/L 40 - 150 U/L [facility] ALT [Catalytic activity/Vol] 28 U/L NINF - 40 U/L [facility] Anion gap [Moles/Vol] 7 mmol/L 3 - 13 mmol/L [facility] AST [Catalytic activity/Vol] 38 U/L High NINF - 34 U/L [facility] Bilirubin [Mass/Vol] 0.5 mg/dL NINF - 1.2 mg/dL [facility] Calcium [Mass/Vol] 8.8 mg/dL 8.4 - 10. 2 mg/dL [facility] Chloride [Moles/Vol] 100 mmol/L 98 - 10 7 mmol/L [facility] CO2 [Moles/Vol] 31 mmol/L High 22 - 29 mmol/L [facility] Creatinine [Mass/Vol] 0.75 mg/dL 0.72 - 1.25 mg/dL [facility] GFR/1.73 sq M.predicted (S/P/Bld) [Vol rate/Area] - PINF [facility] Comment on above: Calculation based on the Chronic Kidney Disease Epidemiology Collaboration (CKD-EPI) equation refit without adjustment for race Glucose [Mass/Vol] 111 mg/dL High 74 - 100 mg/dL [facility] Interpretation and review of laboratory results Abnormal [facility] Potassium [Moles/Vol] 4.1 mmol/L 3.5 - 5.1 mmol/L [facility] Comment on above: Plasma potassium juan ues may be up to 0.5 mmol/L lower than serum values. Protein [Mass/Vol] 6.5 g/dL 6.4 - 8.3 g/dL [facility] Sodium [Moles/Vol] 138 mmol/L 136 - 145 mmol/L [facility] Urea nitrogen [Mass/Vol] 5 mg/dL Low 9 - 23 mg/dL [facility] Nursing Noteon 08-06-2024 Nursing Note Normal [facility] Nursing Note 2 attempts done for blood draw. Unable to retrieve blood. 2nd nurse to attempt. Normal [facility] Nursing Note Patient is up and steady, seen in group room. Pt is cooperative and med compliant. Pt denies SI/HI/AVH. Pt encouraged to notify staff for any questions and concerns. Normal [facility] Progress Noteon 08-06-2024 Progress Note Normal [facility] 30on 08-05-2024 30 Normal [facility] 94on 08-05-2024 94 Normal [facility] Laboratory - Chemistry and C hemistry - challengeOrdered By: Deven Stokes on 08-05-2024 Transferrin.carbohydrate deficient/Total transferrin [Mass fraction] 7.5 % High NINF - 1.4 % [facility] Work Phone: Comment on above: Normal:0-1.3% Inconclusive: 1.4-1.6% Elevated: greater than or equal to 1.7% Performed via Capillary Electrophoresis Nursing Noteon 08-05-2024 Nursing Note Normal [facility] Nursing Note Normal [facility] Nursing Note Normal [facility] Progress Noteon 08-05-2024 Progress Note Normal [facility] Progress Note Normal [facility] Progress Note Nutrition rescreen completed. Patient assigned a level 1. Normal [facility] Transferrin.carbohydrate def icient/Total transferrin [Mass fraction]Ordered By: Deven Stokes on 08-05-2024 Interpretation and review of laboratory results Abnormal [facility] Work Phone: [facility] Work Phone: 30on 08-04-2024 30 Care plan reviewed Normal [facility] [id number] 08-04-2024 [id number] Patient scheduled fo r [facility] intake assessment on 08/13/2024 at 1:30 PM. All information included in patient's discharge paperwork. [facility] [phone] Patient reports plan s to engage in [facility]. Declining residential as an option at current time. JEREMY will assist with scheduling patient intake appointment. [facility] [phone] Normal [facility] CARBOHYDRATE DEFICIENT TRANS FERRINon 08-04-2024 CARBOHYDRATE DEFICIENT TRANSFERRIN 7.5 % High <1.4 [facility] Comment on above: Result Comment: Norm al:0-1.3%Inconclusive: 1.4-1.6%Elevated: greater than or equal to 1.7%Performed via Capillary Electrophoresis Performed By: #### L [id number] ####Philosophy Instructor: CECI DUPREE ([id number])[facility] ([address] Consulton 08-04-2024 Consult Normal [facility] ECG 12-LEADon 08-04-2024 ECG 12-LEAD IMPRESSION: Sinus rhythm Probable anterior infarct, age indeterminate Electronically Signed On 08-04-2024 02:23:55 EDT by Anaya Wallace Normal [facility] ED Nursing Noteon 08-04-2024 ED Nursing Note Transport here for pt. Normal [facility] No Panel InformationOrdered By: Anaya Wallace on 08-04-2024 P [place] 35 degrees [facility] Work Phone: MI Interval 154 ms [facility] Work Phone: QRS [place] 80 degrees [facility] Work Phone: QRSD Interval 86 ms [facility] Work Phone: QT Interval 364 ms [facility] Work Phone: QTC Interval 461 ms [facility] Work Phone: T Wave [place] 47 degrees [facility] Work Phone: [facility] Work Phone: No Panel Informationon 08-04 Sinus rhythm Probable anterior infarct, age indeterminate Electronically Signed On 08-04-2024 02:23:55 EDT by Anaya Dupont D O - 08/04/2024 IMPRESSION: Sinus rhythm Probable anterior infarct, age indeterminate Electronically Signed On 08-04-2024 02:23:55 EDT by Anaya Wallace [facility] Nursing Noteon 08-04-2024 Nursing Note Patient is up and steady, seen in group room socializing. Pt is cooperative and med compliant. Pt has shingles on right flank and back. Pt denies SI/HI/AVH. Pt encouraged to notify staff for any questions and concerns. Normal [facility] Nursing Note Administered PRN Oxycodone for shingles pain. Will monitor effectiveness. Normal [facility] Nursing Note Normal [facility] Nursing Note Normal [facility] Vital signsOrdered By: Godwin Wallace on 08-04-2024 Heart rate 96 /min bpm [facility] Work Phone: CBC W Auto Differential pane l (Bld)Ordered By: Aurora Garcia on 08-03-2024 Basophils (Bld) [#/Vol] 0 10*3/uL 0.0 - 0.2 10*3/uL [facility] Basophils/100 WBC (Bld) 0.6 % 0.0 - 2.0 % [facility] Eosinophils (Bld) [#/Vol] 0.1 10*3/uL 0.0 - 0.5 10*3/uL [facility] Eosinophils/100 WBC (Bld) 1.2 % 0.0 - 6.0 % [facility] Erythrocyte distribution width (RBC) [Ratio] 13.2 % 11.5 - 15.0 % [facility] Hematocrit (Bld) [Volume fraction] 48.4 % 40.0 - 52.0 % [facility] Hemoglobin (Bld) [Mass/Vol] 17.1 g/dL 13.0 - 18.0 g/dL [facility] Immature granulocytes (Bld) [#/Vol] 0 10*3/uL NINF - 0.1 10*3/uL [facility] Immature granulocytes/100 WBC (Bld) 0.4 % 0.0 - 2.0 % [facility] Interpretation and review of laboratory results Abnormal [facility] Lymphocytes (Bld) [#/Vol] 1.7 10*3/uL 1.0 - 4.3 10*3/uL [facility] Lymphocytes/100 WBC (Bld) 33.3 % 15.0 - 45.0 % [facility] MCH (RBC) [Entitic mass] 33.9 pg 26. 0 - 34.[address] [facility] MCHC (RBC) [Mass/Vol] 35.3 % 30.5 - 36.0 % [facility] MCV (RBC) [Entitic vol] 95.8 fL 77.0 - 99.[address] [facility] Monocytes (Bld) [#/Vol] 0.6 10*3/uL 0.0 - 0.9 10*3/uL [facility] Monocytes/100 WBC (Bld) 12.8 % 5.0 - 13.0 % [facility] Neutrophils (Bld) [#/Vol] 2.6 10*3/uL 1.8 - 7.5 10*3/uL [facility] Neutrophils/100 WBC (Bld) 51.7 % 38.0 - 82.0 % [facility] Nucleated RBC/100 WBC (Bld) [Ratio] 0 % [facility] Platelet mean volume (Bld) [Entitic vol] 8.8 fL Low 9.0 - 12.[address] [facility] Platelets (Bld) [#/Vol] 137 10*3/uL Low 140 - 440 10*3/uL [facility] RBC (Bld) [#/Vol] 5.05 10*6/uL 4.40 - 5.9 0 10*6/uL [facility] WBC (Bld) [#/Vol] 5 10*3/uL 3.6 - 10.7 10*3/uL [facility] CBC WITH AUTO DIFFERENTIALon 08-03-2024 Basophils (Bld) [#/Vol] 0.0 10*3/uL Normal 0.0-0.2 [facility] Comment on above: Performed By: #### L [id number] ####Philosophy Instructor: REINIER ZHU ([id number])[facility] ([facility])[address] [place] [address] Basophils/100 WBC (Bld) 0.6 % Normal 0.0-2.0 [facility] Comment on above: Performed By: #### L [id number] ####Philosophy Instructor: REINIER ZHU ([id number])[facility] ([facility])[address] [place] [address] Eosinophils (Bld) [#/Vol] 0.1 10*3/uL Normal 0.0-0.5 [facility] Comment on above: Performed By: #### L [id number] ####Philosophy Instructor: REINIER ZHU ([id number])[facility] [place] ([facility])[address] [place] [address] Eosinophils/100 WBC (Bld) 1.2 % Normal 0.0-6.0 [facility] Comment on above: Performed By: #### L [id number] ####Philosophy Instructor: REINIER ZHU ([id number])[facility] ([facility])[address] [place] [address] Erythrocyte distribution width (RBC) [Ratio] 13.2 % Normal 11.5-15.0 [facility] Comment on above: Performed By: #### L [id number] ####Philosophy Instructor: REINIER ZHU ([id number])[facility] [place] ([facility])[address] [place] [address] Hematocrit (Bld) [Volume fraction] 48.4 % Normal 40.0-52.0 [facility] Comment on above: Performed By: #### L [id number] ####Philosophy Instructor: REINIER ZHU ([id number])[facility] [place] ([facility])[address] [place] [address] Hemoglobin (Bld) [Mass/Vol] 17.1 g/dL Normal 13.0-18.0 [facility] Comment on above: Performed By: #### L [id number] ####Philosophy Instructor: REINIER ZHU ([id number])[facility] ([facility])[address] [place] [address] IMMATURE GRANS % 0.4 % Normal 0.0-2.0 [facility] Comment on above: Performed By: #### L [id number] ####Philosophy Instructor: REINIER ZHU ([id number])[facility] ([facility])[address] [place] [address] IMMATURE GRANS ABSOLUTE 0.0 10*3/uL Normal <0.1 [facility] Comment on above: Performed By: #### L [id number] ####Philosophy Instructor: REINIER ZHU ([id number])[facility] [place] ([facility])[address] [place] [address] Lymphocytes (Bld) [#/Vol] 1.7 10*3/uL Normal 1.0-4.3 [facility] Comment on above: Performed By: #### L [id number] ####Philosophy Instructor: REINIER ZHU ([id number])[facility] ([facility])[address] [place] [address] Lymphocytes/100 WBC (Bld) 33.3 % Normal 15.0-45.0 [facility] Comment on above: Performed By: #### L [id number] ####Philosophy Instructor: REINIER ZHU ([id number])[facility] ([facility])[address] [place] [address] MCH (RBC) [Entitic mass] 33.9 pg Normal 26.0-34.0 [facility] Comment on above: Performed By: #### L [id number] ####Philosophy Instructor: REINIER ZHU ([id number])[facility] ([facility])[address] [place] [address] MCHC 35.3 % Normal 30.5-36.0 [facility] Comment on above: Performed By: #### L [id number] ####Philosophy Instructor: REINIER ZHU ([id number])[facility] ([facility])[address] [place] [address] MCV (RBC) [Entitic vol] 95.8 fL Normal 77.0-99.0 [facility] Comment on above: Performed By: #### L [id number] ####Philosophy Instructor: REINIER ZHU ([id number])[facility] [place] ([facility])[address] [place] [address] Monocytes (Bld) [#/Vol] 0.6 10*3/uL Normal 0.0-0.9 [facility] Comment on above: Performed By: #### L [id number] ####Philosophy Instructor: REINIER ZHU ([id number])[facility] [place] ([facility])[address] [place] [address] Monocytes/100 WBC (Bld) 12.8 % Normal 5.0-13.0 [facility] Comment on above: Performed By: #### L [id number] ####Philosophy Instructor: REINIER ZHU ([id number])[facility] ([facility])[address] [place] [address] NEUTROPHILS ABSOLUTE 2.6 10*3/uL Normal 1.8-7.5 [facility] Comment on above: Performed By: #### L [id number] ####Philosophy Instructor: REINIER ZHU ([id number])[facility] [place] ([facility])[address] Neutrophils/100 WBC (Bld) 51.7 % Normal 38.0-82.0 [facility] Comment on above: Performed By: #### L [id number] ####Philosophy Instructor: REINIER ZHU ([id number])[facility] [place] ([facility])[address] NRBC 0.0 /100 WBCs Normal 0.0-2.0 [facility] Comment on above: Performed By: #### L [id number] ####Philosophy Instructor: REINIER ZHU ([id number])[facility] ([facility])[address] Platelet mean volume (Bld) [Entitic vol] 8.8 fL Low 9.0-12.7 [facility] Comment on above: Performed By: #### L [id number] ####Philosophy Instructor: REINIER ZHU ([id number])[facility] [place] ([facility])[address] [place] [address] [place] Platelets (Bld) [#/Vol] 137 10*3/uL Low 140-440 [facility] Comment on above: Performed By: #### L [id number] ####Philosophy Instructor: REINIER ZHU ([id number])[facility] [place] ([facility])[address] [place] [address] [place] RBC (Bld) [#/Vol] 5.05 10*6/uL Normal 4.40-5.90 [facility] Comment on above: Performed By: #### L [id number] ####Philosophy Instructor: REINIER ZHU ([id number])[facility] [place] ([facility])[address] [place] [address] [place] WBC (Bld) [#/Vol] 5.0 10*3/uL Normal 3.6-10.7 [facility] Comment on above: Performed By: #### L [id number] ####Philosophy Instructor: REINIER ZHU ([id number])[facility] ([facility])[address] COMPREHENSIVE METABOLIC PANE Arnulfo 08-03-2024 Albumin [Mass/Vol] 3.6 g/dL Normal 3.5-5.0 [facility] Comment on above: Performed By: #### L AB46, LAB17 ####Philosophy Instructor: REINIER ZHU ([id number])[facility] [place] ([facility])[address] ALP [Catalytic activity/Vol] 103 U/L Normal 40-150 [facility] Comment on above: Performed By: #### L AB46, LAB17 ####Philosophy Instructor: REINIER ZHU ([id number])[facility] ([facility])[address] ALT [Catalytic activity/Vol] 32 U/L Normal <40 [facility] Comment on above: Performed By: #### L AB46, LAB17 ####Philosophy Instructor: REINIER ZHU ([id number])[facility] ([facility])[address] Anion gap [Moles/Vol] 12 mmol/L Normal 3-13 [facility] Comment on above: Performed By: #### L AB46, LAB17 ####Philosophy Instructor: REINIER ZHU ([id number])[facility] ([facility])[address] AST [Catalytic activity/Vol] 42 U/L High <34 [facility] Comment on above: Performed By: #### L AB46, LAB17 ####Philosophy Instructor: REINIER ZHU ([id number])[facility] ([facility])[address] Bilirubin [Mass/Vol] 0.3 mg/dL Normal <1.2 [facility] Comment on above: Performed By: #### L AB46, LAB17 ####Philosophy Instructor: REINIER ZHU ([id number])[facility] [place] ([facility])[address] Calcium [Mass/Vol] 8.4 mg/dL Normal 8.4-10.2 [facility] Comment on above: Performed By: #### L AB46, LAB17 ####Philosophy Instructor: REINIER ZHU ([id number])[facility] [place] ([facility])[address] Chloride [Moles/Vol] 98 mmol/L Normal 98-107 [facility] Comment on above: Performed By: #### L AB46, LAB17 ####Philosophy Instructor: REINIER ZHU ([id number])[facility] [place] ([facility])[address] CO2 [Moles/Vol] 26 mmol/L Normal 22-29 [facility] Comment on above: Performed By: #### L AB46, LAB17 ####Philosophy Instructor: REINIER ZHU ([id number])[facility] [place] ([facility])[address] Creatinine [Mass/Vol] 0.64 mg/dL Low 0.72-1.25 [facility] Comment on above: Performed By: #### L AB46, LAB17 ####Philosophy Instructor: REINIER ZHU ([id number])[facility] [place] ([facility])[address] [place] [address] [place] GLOMERULAR FILTRATION RATE ML/MIN/1.73 SQ M.PREDICTED >90.0 Normal >60.0 [facility] Comment on above: Result Comment: Calc ulation based on the Chronic Kidney Disease Epidemiology Collaboration (CKD-EPI) equation refit without adjustment for race Performed By: #### L AB46, LAB17 ####Philosophy Instructor: REINIER ZHU ([id number])[facility] [place] ([facility])[address] [place] [address] [place] Glucose [Mass/Vol] 113 mg/dL High 74-100 [facility] Comment on above: Performed By: #### L AB46, LAB17 ####Philosophy Instructor: REINIER ZHU ([id number])[facility] ([facility])[address] Potassium [Moles/Vol] 4.2 mmol/L Normal 3.5-5.1 [facility] Comment on above: Result Comment: [facility] potassium values may be up to 0.5 mmol/L lower than serum values. Performed By: #### L AB46, LAB17 ####Philosophy Instructor: REINIER ZHU ([id number])[facility] ([facility])[address] Protein [Mass/Vol] 7.4 g/dL Normal 6.4-8.3 [facility] Comment on above: Performed By: #### L AB46, LAB17 ####Philosophy Instructor: REINIER ZHU ([id number])[facility] ([facility])[address] Sodium [Moles/Vol] 136 mmol/L Normal 136-145 [facility] Comment on above: Performed By: #### L AB46, LAB17 ####Philosophy Instructor: REINIER ZHU ([id number])[facility] ([facility])[address] Urea nitrogen [Mass/Vol] 5 mg/dL Low 9-23 [facility] Comment on above: Performed By: #### L AB46, LAB17 ####Philosophy Instructor: REINIER ZHU ([id number])[facility] ([facility])[address] Comprehensive metabolic 1998 panelon 08-03-2024 Albumin [Mass/Vol] 3.6 g/dL 3.5 - 5.0 g/dL [facility] ALP [Catalytic activity/Vol] 103 U/L 40 - 150 U/L [facility] ALT [Catalytic activity/Vol] 32 U/L NINF - 40 U/L [facility] Anion gap [Moles/Vol] 12 mmol/L 3 - 13 mmol/L [facility] AST [Catalytic activity/Vol] 42 U/L High NINF - 34 U/L [facility] Bilirubin [Mass/Vol] 0.3 mg/dL NINF - 1.2 mg/dL [facility] Calcium [Mass/Vol] 8.4 mg/dL 8.4 - 10. 2 mg/dL [facility] Chloride [Moles/Vol] 98 mmol/L 98 - 10 7 mmol/L [facility] CO2 [Moles/Vol] 26 mmol/L 22 - 29 mmol/L [facility] Creatinine [Mass/Vol] 0.64 mg/dL Low 0.72 - 1.25 mg/dL [facility] GFR/1.73 sq M.predicted (S/P/Bld) [Vol rate/Area] - PINF [facility] Comment on above: Calculation based on the Chronic Kidney Disease Epidemiology Collaboration (CKD-EPI) equation refit without adjustment for race Glucose [Mass/Vol] 113 mg/dL High 74 - 100 mg/dL [facility] Interpretation and review of laboratory results Abnormal [facility] Potassium [Moles/Vol] 4.2 mmol/L 3.5 - 5.1 mmol/L [facility] Comment on above: Plasma potassium juan ues may be up to 0.5 mmol/L lower than serum values. Protein [Mass/Vol] 7.4 g/dL 6.4 - 8.3 g/dL [facility] Sodium [Moles/Vol] 136 mmol/L 136 - 145 mmol/L [facility] Urea nitrogen [Mass/Vol] 5 mg/dL Low 9 - 23 mg/dL [facility] DRUGS OF ABUSEon 08-03-2024 AMPHETAMINE SCREEN Negative Normal [facility] Comment on above: Performed By: #### L [id number] ####Philosophy Instructor: REINIER ZHU ([id number])[facility] ([facility])[address] [place] [address] BARBITURATES SCREEN Negative Normal [facility] Comment on above: Performed By: #### L [id number] ####Philosophy Instructor: REINIER ZHU ([id number])[facility] ([facility])[address] BENZODIAZEPINE SCREEN Negative Normal [facility] Comment on above: Performed By: #### L [id number] ####Philosophy Instructor: REINIER ZHU ([id number])[facility] ([facility])[address] COCAINE METAB. SCREEN Negative Normal [facility] Comment on above: Performed By: #### L [id number] ####Philosophy Instructor: REINIER ZHU ([id number])[facility] ([facility])[address] FENTANYL SCREEN, UR QUAL Negative Normal [facility] Comment on above: Result Comment: ORDE [...] under separate order. Performed By: #### L [id number] ####Philosophy Instructor: REINIER ZHU ([id number])[facility] ([facility])[address] METHADONE SCREEN Negative Normal [facility] Comment on above: Performed By: #### L [id number] ####Philosophy Instructor: REINIER ZHU ([id number])[facility] ([facility])[address] OPIATES SCREEN Negative Normal [facility] Comment on above: Performed By: #### L [id number] ####Philosophy Instructor: REINIER ZHU ([id number])[facility] ([facility])[address] OXYCODONE SCREEN Negative Normal [facility] Comment on above: Performed By: #### L [id number] ####Philosophy Instructor: REINIER OVIEDOBriseidaROGER ([id number])[facility] ([facility])[address] PHENCYCLIDINE SCREEN Negative Normal [facility] Comment on above: Performed By: #### L [id number] ####Philosophy Instructor: REINIER MARKO ([id number])[facility] ([facility])[address] ED Nursing Noteon 08-03-2024 ED Nursing Note Called report to RN at [facility]. Normal [facility] ED Nursing Note Patient here for a rash on his right rib area around to his back. Burning and painful. Patient also wants to be in rehab for his drinking his last drink was today and he drinks at least 8 tall boys per day. Normal [facility] ED Provider Noteon ED Provider Note Normal [facility] ETHANOLon 08-03-2024 ETHANOL IN SER/PLAS 375 mg/dL Critically high <10 [facility] Comment on above: Result Comment: GEOR[place]IA R COMMENTS:CRUISE COORDINATOR depression is seen >100 mg/dL.NOTE: This result is for medical treatment only. Analysis performed using non-forensic procedures. Performed By: #### L [id number], LAB17 ####Philosophy Instructor: REINIER ZHU ([phone])[facility] (HLAB)[address] [place] [address] Ethanol (Bld) [Mass/Vol]Orde red By: Jacqueline Smith on 08-03-2024 Ethanol [Mass/Vol] 375 mg/dL Critically high NINF - 10 mg/dL [facility] Interpretation and review of laboratory results Abnormal [facility] CRUISE COORDINATOR depression is se en >100 mg/dL. NOTE: This result is for medical treatment only. Analysis performed using non-forensic procedures. [facility] Laboratory - Drug toxicology on 08-03-2024 Amphetamines Screen method >1000 ng/mL Ql (U) Negative [facility] Barbiturates Screen method >200 ng/mL Ql (U) Negative [facility] Benzodiazepines Ql (U) Negative [facility] Methadone Screen Ql (U) Negative [facility] Opiates Screen Ql (U) Negative [facility] oxyCODONE Ql (U) Negative [facility] Phencyclidine Ql (U) Negative [facility] Laboratory - Microbiology an d Antimicrobial susceptibilityOrdered By: Chip Clinton on 08-03-2024 SARS-CoV-2 (COVID-19) Ag IA.rapid Ql (Resp) Negative Negative [facility] Comment on above: A negative result do es not rule out the possibility of SARS-CoV-2 infection. NAAT-based methods should be considered for symptomatic patients presenting greater than seven days after onset of symptoms. Method: Lateral flow immunoassay. Fact sheets for healthcare providers and patients can be found at the following sites: https://www.fda.gov/media/086427/download https://www.Vaxxas.gov/media/585533/download No Panel Informationon 08-03 COCAINE METAB. SCREEN Negative [facility] FENTANYL SCREEN, UR QUAL Negative [facility] The expected value f or all [...] is needed, request confirmation under separate order. [facility] SARS-COV-2 ANTIGENon 025 SARS-COV-[address] [facility] Comment on above: Performed By: #### L [id number] ####Philosophy Instructor: REINIER ZHU ([id number])[facility] (SBAB)[address] [place] [address] SARS-CoV-2 (COVID-19) Ag IA. rapid Ql (Resp)Ordered By: Chip Clinton on 08-03-2024 Interpretation and review of laboratory results Normal [facility] 36on 07-16-2024 36 Attempt #3 LVM for patient to call our office to schedule follow up to review CT results. Normal [facility] Progress Noteon 07-03-2024 Progress Note Normal [facility] ED Provider Note Normal [facility] XR Foot - left 2 Viewson 1. No acute finding. Report Dictated on Electronically Signed By: Larry Carvalho MD Electronically Signed Date/Time: 07/01/2024 8:07 PM EDT [facility] Patient Name: MARIA DE JESUS HOGAN [...] No soft tissue gas or foreign body. [facility] Larry Carvalho MD - 07/01/2024 Patient Name: [...] Electronically Signed Date/Time: 07/01/2024 8:[address] [facility] Radiology Study observation (narrative) Pedro [facility] alth XR Foot - left 2 ViewsOrdere d By: Larry Carvalho on 07-01-2024 [facility] Work Phone: 36on 06-25-2024 36 LVM for patient to call our office to reschedule missed appointment with ML. Will send Drybar message as well. Normal [facility] 36on 06-23-2024 36 Normal [facility] 36 Normal [facility] 36on 06-19-2024 36 Normal [facility] Progress Noteon 06-16-2024 Progress Note Normal [facility] CT CHEST WO IV CONTRASTon CT CHEST WO IV CONTRAST Normal [facility] 36on 06-08-2024 36 We have been unable to reach your patient to schedule their testing. Test Name: US abdomen complete 1st attempt, via Drybar message, 05/23/24 JS 2nd attempt called LVM. TE to office. sent Drybar message. 06/08/24 LR Normal [facility] 36on 06-05-2024 36 LVM Normal [facility] [id number] 06-04-2024 [id number] Social work consult placed for patient. Notified areas of S NAHOMY noted at current time. Social work consult is cleared. Normal [facility] Nursing Noteon 06-04-2024 Nursing Note Normal [facility] Nursing Note No issue reported after the Naltrexone pill given to the patient. He reports last time he took the medication it really helped his cravings. He reports taking the oral and injection form once in the past. Normal [facility] Nursing Note Normal [facility] Nursing Note Patient is up and steady, seen socializing in group room. Pt is cooperative and med compliant. Pt denies SI/HI/AVH. Pt encouraged to notify staff for any questions and concerns. Normal [facility] Progress Noteon 06-04-2024 Progress Note Normal [facility] Progress Note Nutrition rescreen completed. Patient assigned a level 1. Normal [facility] [id number] 06-03-2024 [id number] Normal [facility] 36on 06-03-2024 36 LVM for pt to call office to reschedule CT scan and follow up kavon Lara. Normal [facility] 94on 06-03-2024 94 Normal [facility] Nursing Noteon 06-03-2024 Nursing Note Normal [facility] Nursing Note Patient received Nicotine Lozenge as per orders PRN PO at 1340, and 1740. Normal [facility] Nursing Note Med. Rec. Done with Jesse at [facility] at 1230. Normal [facility] Nursing Note Patient received PO PRN Tylenol as per orders at 1228 for lower back arthritis pain. Normal [facility] Nursing Note Patient received Nicotine Lozenge at 1139 and 1705 PRN PO as per orders. Patient received PO PRN Albuterol as per orders at 1705. Normal [facility] Nursing Note Normal [facility] 36on 06-02-2024 36 Normal [facility] 36 Normal [facility] CBC (HEMOGRAM)on 06-02-2024 Erythrocyte distribution width (RBC) [Ratio] 13.4 % Normal 11.5-15.0 [facility] Comment on above: Performed By: #### L [id number] ####Philosophy Instructor: REINIER ZHU ([id number])[facility] ([facility])[address] [place] [address] Hematocrit (Bld) [Volume fraction] 45.6 % Normal 40.0-52.0 [facility] Comment on above: Performed By: #### L [id number] ####Philosophy Instructor: REINIER ZHU ([id number])[facility] ([facility])[address] [place] [address] Hemoglobin (Bld) [Mass/Vol] 15.8 g/dL Normal 13.0-18.0 [facility] Comment on above: Performed By: #### L [id number] ####Philosophy Instructor: REINIER ZHU ([id number])[facility] ([facility])[address] [place] [address] MCH (RBC) [Entitic mass] 33.1 pg Normal 26.0-34.0 [facility] Comment on above: Performed By: #### L [id number] ####Philosophy Instructor: REINIER ZHU ([id number])[facility] (SBHLAB)[address] MCHC 34.6 % Normal 30.5-36.0 [facility] Comment on above: Performed By: #### L [id number] ####Philosophy Instructor: REINIER ZHU ([id number])[facility] (SBHLAB)[address] MCV (RBC) [Entitic vol] 95.6 fL Normal 77.0-99.0 [facility] Comment on above: Performed By: #### L [id number] ####Philosophy Instructor: REINIER ZHU ([phone])[facility] (SBHLAB)[address] Platelet mean volume (Bld) [Entitic vol] 8.8 fL Low 9.0-12.7 [facility] Comment on above: Performed By: #### L [id number] ####Philosophy Instructor: REINIER ZHU ([id number])[facility] CALIYAZN (SBHLAB)[address] Platelets (Bld) [#/Vol] 184 10*3/uL Normal 140-440 [facility] Comment on above: Performed By: #### L [id number] ####Philosophy Instructor: REINIER ZHU ([id number])[facility] BARBYAZN (SBHLAB)[address] [place] [address] [place] RBC (Bld) [#/Vol] 4.77 10*6/uL Normal 4.40-5.90 [facility] Comment on above: Performed By: #### L [id number] ####Philosophy Instructor: REINIER ZHU ([id number])[facility] CAL[facility] (SBHLAB)[address] [place] [address] [place] WBC (Bld) [#/Vol] 6.7 10*3/uL Normal 3.6-10.7 [facility] Comment on above: Performed By: #### L [id number] ####Philosophy Instructor: REINIER ZHU ([id number])[facility] VIRAJGALLUP INDIAN MEDICAL CENTERAnum (SBHLAB)[address] CBC panel Auto (Bld)on 06-02 Erythrocyte distribution width (RBC) [Ratio] 13.4 % 11.5 - 15.0 % [facility] Hematocrit (Bld) [Volume fraction] 45.6 % 40.0 - 52.0 % [facility] Hemoglobin (Bld) [Mass/Vol] 15.8 g/dL 13.0 - 18.0 g/dL [facility] Interpretation and review of laboratory results Abnormal [facility] MCH (RBC) [Entitic mass] 33.1 pg 26. 0 - 34.[address] [facility] MCHC (RBC) [Mass/Vol] 34.6 % 30.5 - 36.0 % [facility] MCV (RBC) [Entitic vol] 95.6 fL 77.0 - 99.[address] [facility] Platelet mean volume (Bld) [Entitic vol] 8.8 fL Low 9.0 - 12.[address] [facility] Platelets (Bld) [#/Vol] 184 10*3/uL 140 - 440 10*3/uL [facility] RBC (Bld) [#/Vol] 4.77 10*6/uL 4.40 - 5.9 0 10*6/uL [facility] WBC (Bld) [#/Vol] 6.7 10*3/uL 3.6 - 10.7 10*3/uL [facility] COMPREHENSIVE METABOLIC PANE Arnulfo 06-02-2024 Albumin [Mass/Vol] 3.6 g/dL Normal 3.5-5.0 [facility] Comment on above: Performed By: #### L AB46, LAB17, [id number] ####Philosophy Instructor: REINIER ZHU ([id number])[facility] (SBHLAB)[address] ALP [Catalytic activity/Vol] 110 U/L Normal 40-150 [facility] Comment on above: Performed By: #### L AB46, LAB17, [id number] ####Philosophy Instructor: REINIER ZHU ([id number])[facility] VIRAJGALLUP INDIAN MEDICAL CENTERN (SBHLAB)[address] ALT [Catalytic activity/Vol] 44 U/L High <40 [facility] Comment on above: Performed By: #### L AB46, LAB17, [id number] ####Philosophy Instructor: REINIER ZHU ([id number])[facility] [place] (SBHLAB)[address] Anion gap [Moles/Vol] 14 mmol/L High 3-13 [facility] Comment on above: Performed By: #### Jose Carlos AB46, LAB17, [id number] ####Philosophy Instructor: REINIER ZHU ([id number])[facility] (SBHLAB)[address] AST [Catalytic activity/Vol] 49 U/L High <34 [facility] Comment on above: Performed By: #### Jose Carlos SHORE46, LAB17, [id number] ####Philosophy Instructor: REINIER ZHU ([id number])[facility] (SBHLAB)[address] Bilirubin [Mass/Vol] 0.4 mg/dL Normal <1.2 [facility] Comment on above: Performed By: #### Jose Carlos ARREDONDO, LAB17, [id number] ####Philosophy Instructor: REINIER ZHU ([id number])[facility] (SBHLAB)[address] Calcium [Mass/Vol] 8.9 mg/dL Normal 8.4-10.2 [facility] Comment on above: Performed By: #### L AB46, LAB17, OCS473 ####Philosophy Instructor: REINIER ZHU ([id number])[facility] (SBHLAB)[address] [place] [address] [place] Chloride [Moles/Vol] 97 mmol/L Low 98-107 [facility] Comment on above: Performed By: #### L AB46, LAB17, [id number] ####Philosophy Instructor: REINIER BATISTACER ([id number])[facility] (SBHLAB)[address] CO2 [Moles/Vol] 23 mmol/L Normal 22-29 [facility] Comment on above: Performed By: #### L AB46, LAB17, RLS329 ####Philosophy Instructor: REINIER OVIEDOBriseidaROGER ([id number])[facility] (SBHLAB)[address] Creatinine [Mass/Vol] 0.59 mg/dL Low 0.72-1.25 [facility] Comment on above: Performed By: #### L AB46, LAB17, [id number] ####Philosophy Instructor: REINIER MORINROGER ([id number])[facility] (SBHLAB)[address] GLOMERULAR FILTRATION RATE ML/MIN/1.73 SQ M.PREDICTED >90.0 Normal >60.0 [facility] Comment on above: Result Comment: Calc ulation based on the Chronic Kidney Disease Epidemiology Collaboration (CKD-EPI) equation refit without adjustment for race Performed By: #### L AB46, LAB17, PNB151 ####Philosophy Instructor: REINIER ZHU ([id number])[facility] (SBHLAB)[address] Glucose [Mass/Vol] 85 mg/dL Normal 74-100 [facility] Comment on above: Performed By: #### L AB46, LAB17, FNL053 ####Philosophy Instructor: REINIER OVIEDOTORSTENROGER ([id number])[facility] (SBHLAB)[address] Potassium [Moles/Vol] 4.2 mmol/L Normal 3.5-5.1 [facility] Comment on above: Result Comment: [facility] potassium values may be up to 0.5 mmol/L lower than serum values. Performed By: #### L AB46, LAB17, [id number] ####Philosophy Instructor: REINIER BATISTACER ([id number])[facility] (SBHLAB)[address] Protein [Mass/Vol] 7.2 g/dL Normal 6.4-8.3 [facility] Comment on above: Performed By: #### L AB46, LAB17, [id number] ####Philosophy Instructor: REINIER ZHU ([id number])[facility] BARBGALLUP INDIAN MED[facility] CENTERN (SBHLAB)[address] Sodium [Moles/Vol] 134 mmol/L Low 136-145 [facility] Comment on above: Performed By: #### L AB46, LAB17, [id number] ####Philosophy Instructor: REINIER OVIEDOVINAYAK ([id number])[facility] (SBHLAB)[address] [place] [address] Urea nitrogen [Mass/Vol] 3 mg/dL Low 9-23 [facility] Comment on above: Performed By: #### L AB46, LAB17, VQI614 ####Philosophy Instructor: REINIER OVIEDOVINAYAK ([id number])[facility] (SB[facility]AB)[address] Comprehensive metabolic 1998 panelon 06-02-2024 Albumin [Mass/Vol] 3.6 g/dL 3.5 - 5.0 g/dL [facility] ALP [Catalytic activity/Vol] 110 U/L 40 - 150 U/L [facility] ALT [Catalytic activity/Vol] 44 U/L High NINF - 40 U/L [facility] Anion gap [Moles/Vol] 14 mmol/L High 3 - 13 mmol/L [facility] AST [Catalytic activity/Vol] 49 U/L High NINF - 34 U/L [facility] Bilirubin [Mass/Vol] 0.4 mg/dL NINF - 1.2 mg/dL [facility] Calcium [Mass/Vol] 8.9 mg/dL 8.4 - 10. 2 mg/dL [facility] Chloride [Moles/Vol] 97 mmol/L Low 98 - 10 7 mmol/L [facility] CO2 [Moles/Vol] 23 mmol/L 22 - 29 mmol/L [facility] Creatinine [Mass/Vol] 0.59 mg/dL Low 0.72 - 1.25 mg/dL [facility] GFR/1.73 sq M.predicted (S/P/Bld) [Vol rate/Area] - PINF [facility] Comment on above: Calculation based on the Chronic Kidney Disease Epidemiology Collaboration (CKD-EPI) equation refit without adjustment for race Glucose [Mass/Vol] 85 mg/dL 74 - 100 mg/dL [facility] Potassium [Moles/Vol] 4.2 mmol/L 3.5 - 5.1 mmol/L [facility] Comment on above: Plasma potassium juan ues may be up to 0.5 mmol/L lower than serum values. Protein [Mass/Vol] 7.2 g/dL 6.4 - 8.3 g/dL [facility] Sodium [Moles/Vol] 134 mmol/L Low 136 - 145 mmol/L [facility] Urea nitrogen [Mass/Vol] 3 mg/dL Low 9 - 23 mg/dL [facility] DRUGS OF ABUSEon 06-02-2024 AMPHETAMINE SCREEN Negative Normal [facility] Comment on above: Performed By: #### L [id number] ####Philosophy Instructor: REINIER ZHU ([id number])[facility] (SBAB)[address] [place] [address] BARBITURATES SCREEN Positive Normal [facility] Comment on above: Performed By: #### L [id number] ####Philosophy Instructor: REINIER ZHU ([id number])[facility] (SBHLAB)[address] [place] [address] BENZODIAZEPINE SCREEN Negative Normal [facility] Comment on above: Performed By: #### L [id number] ####Philosophy Instructor: REINIER ZHU ([id number])[facility] (SBHLAB)[address] [place] [address] COCAINE METAB. SCREEN Negative Normal [facility] Comment on above: Performed By: #### L [id number] ####Philosophy Instructor: REINIER ZHU ([id number])[facility] (SBHLAB)[address] [place] [address] FENTANYL SCREEN, UR QUAL Negative Normal [facility] Comment on above: Result [...] under separate order. Performed By: #### L [id number] ####Philosophy Instructor: REINIER ZHU ([id number])[facility] ([facility])[address] [place] [address] METHADONE SCREEN Negative Normal [facility] Comment on above: Performed By: #### L [id number] ####Philosophy Instructor: REINIER ZHU ([id number])[facility] ([facility])[address] [place] [address] OPIATES SCREEN Negative Normal [facility] Comment on above: Performed By: #### L [id number] ####Philosophy Instructor: REINIER ZHU ([id number])[facility] (SBAB)[address] OXYCODONE SCREEN Negative [facility] Comment on above: Performed By: #### L [id number] ####Philosophy Instructor: REINIER ZHU ([id number])[facility] ([facility])[address] [place] [address] PHENCYCLIDINE SCREEN Negative Normal [facility] Comment on above: Performed By: #### L [id number] ####Philosophy Instructor: REINIER ZHU ([id number])[facility] BARBGALLUP INDI[facility]ERN (SBHLAB)[address] ED Nursing Noteon 06-02-2024 ED Nursing Note Called report to Veronica @ 4E Normal [facility] ED Nursing Note Pt normally drink 6- 9 tall boys daily. Today pt only drank 3 and his last drink was about 5pm today. Normal [facility] ED Nursing Note Pt last drink 30 minutes ago. Pt drank 3 tallboys today. Normally drinks 6-9 tallboys. Would like to get detoxed Normal [facility] ED Provider Noteon ED Provider Note Normal [facility] ETHANOLon 06-02-2024 ETHANOL IN SER/PLAS 110 mg/dL High <10 [facility] Comment on above: Result Comment: [place] Lagunas COMMENTS:CRUISE COORDINATOR depression is seen >100 mg/dL.NOTE: This result is for medical treatment only. Analysis performed using non-forensic procedures. Performed By: #### L AB46, LAB17, [id number] ####Philosophy Instructor: REINIER ZHU ([id number])[facility] (SBHLAB)[address] [place] [address] Ethanol (Bld) [Mass/Vol]on 0 06-02-2024 Ethanol [Mass/Vol] 110 mg/dL High NINF - 10 mg/dL [facility] CRUISE COORDINATOR depression is se en >100 mg/dL. NOTE: This result is for medical treatment only. Analysis performed using non-forensic procedures. [facility] - Chemistry and C hemistry - challengeon 06-02-2024 Magnesium [Mass/Vol] 2 mg/dL 1.6 - 2 .6 mg/dL [facility] - Drug toxicology on 06-02-2024 Amphetamines Screen method >1000 ng/mL Ql (U) Negative [facility] Barbiturates Screen method >200 ng/mL Ql (U) Positive [facility] Benzodiazepines Ql (U) Negative [facility] Methadone Screen Ql (U) Negative [facility] Opiates Screen Ql (U) Negative [facility] oxyCODONE Ql (U) Negative [facility] Phencyclidine Ql (U) Negative [facility] Laboratory - Microbiology an d Antimicrobial susceptibilityOrdered By: Johnathan Giron on 06-02-2024 SARS-CoV-2 (COVID-19) Ag IA.rapid Ql (Resp) Negative Negative [facility] Comment on above: A negative result do es not rule out the possibility of SARS-CoV-2 infection. NAAT-based methods should be considered for symptomatic patients presenting greater than seven days after onset of symptoms. Method: Lateral flow immunoassay. Fact sheets for healthcare providers and patients can be found at the following sites: https://www.Vaxxas.gov/media/566998/download https://www.Vaxxas.gov/media/210472/download MAGNESIUMon 06-02-2024 Magnesium [Mass/Vol] 2.0 mg/dL Normal 1.6-2.6 [facility] Comment on above: Result Comment: [place] Lagunas COMMENTS:Higher values can be expected in females during menses. Performed By: #### L AB46, LAB17, [id number] ####Philosophy Instructor: REINIER ZHU ([id number])[facility] ([facility])[address] [place] [address] Magnesium [Mass/Vol]on 06-02 Interpretation and review of laboratory results Normal [facility] Higher values can be expected in females during menses. [facility] No Panel Informationon 06-02 COCAINE METAB. SCREEN Negative [facility] FENTANYL SCREEN, UR QUAL Negative [facility] The expected value f or all [...] is needed, request confirmation under separate order. [facility] Interpretation and review of laboratory results Abnormal [facility] SARS-COV-2 ANTIGENon 025 SARS-COV-2 ANTIGEN Normal [facility] Comment on above: Performed By: #### L [id number] ####Philosophy Instructor: REINIER ZHU ([id number])[facility]AJTU[facility] (SBHLAB)[address] [place] [address] SARS-CoV-2 (COVID-19) Ag IA. rapid Ql (Resp)Ordered By: Johnathan Giron on 06-02-2024 Interpretation and review of laboratory results Normal [facility] Progress Noteon 05-28-2024 Progress Note Normal [facility] CT CERVICAL SPINE WO IV CONT RASTon 05-25-2024 CT CERVICAL SPINE WO IV CONTRAST Normal [facility] CT Cervical spine WO contras ton 05-25-2024 [...] stenosis. Multilevel uncovertebral hypertrophy and facet hypertrophy. [facility] Cezar Smith MD - 05/25/2024 [...] MD Electronically Signed Date/Time: 05/25/2024 4:39 PM [facility] Radiology Study observation (narrative) [facility] alth CT HEAD WO IV CONTRASTon CT HEAD WO IV CONTRAST Normal [facility] CT Head WO contraston 2024 [facility] Name: [facility] 1965 [id number] Exam Date/Time: 05/25/2024 15:59 Procedure: CT HEAD [...] stenosis. Multilevel uncovertebral hypertrophy and facet hypertrophy. [facility] Cezar Smith MD - 05/25/2024 Patient Name: MARIA DE JESUS HOGAN [facility] 1965 [id number] Exam Date/Time: 05/25/2024 15:59 Procedure: CT HEAD [...] Electronically Signed Date/Time: 05/25/2024 4:[address] [facility] Radiology Study observation (narrative) [facility] ED Nursing Noteon 05-25-2024 ED Nursing Note Pt was seen standing in his room and closed the curtain. Normal [facility] ED Nursing Note Patient to room 7 wi th c/o a fall down steps today, and hitting his head. Patient has been drinking alcohol today and reports he has drank 3 tall boys today. V/S obtained call light within reach. Normal [facility] ED Provider Noteon ED Provider Note Normal [facility] No Panel Informationon 05-[address] evidence of an acute intracranial abnormality. No evidence of acute cervical spine fracture. Degenerative changes as discussed. Anatomic Variant: None. Assume 7 cervical vertebrae with counting from the craniocervical junction. Report Dictated on Electronically Signed By: Cezar Smith MD Electronically Signed Date/Time: 05/25/2024 4:39 PM [facility] No Panel InformationOrdered By: Cezar Smith on 05-25-2024 [facility] Work Phone: 36on 05-23-2024 36 We have been unable to reach your patient to schedule their testing. Test Name: TTE 2nd attempt, my chart message, TE to office, cancel request on 05/20/24. JS 1st attempt LVM on 08.10.22 SDS [facility] Progress Noteon 05-20-2024 Progress Note Normal [facility] Progress Noteon 05-14-2024 Progress Note Missed Session Unexcused Pt did not call or show for Scheduled Assessment on this date. [facility] 36on 05-13-2024 36 Appointment rescheduled. [facility] 36 Maria De Jesus Valle [facility] Clinical Handhole Machine Operator (supporting You) 05/12/24 4:20 PM Yes I got my prescriptions filled and take them as instructed sorry my phone has been acting up [facility] 36on 05-12-2024 36 Normal [facility] 36 Please get the patie nt scheduled for a hospital follow-up and asked the transition of care questions thank you [facility] [address] was recently discharged from the hospital [facility] on 05/10/2024. Sending to you for CAROL follow up appointment direction. Normal [facility] Nursing Noteon 05-10-2024 Nursing Note Escorted off unit Normal [facility] Nursing Note Called for krystina chamberlain on way. Given survey and belongings. to be here in 20. Normal [facility] Nursing Note Normal [facility] Nursing Note Asking to be discharged, stated needs to go home today. States will call [facility] himself. Discussed with Dr Thrasher, and he will discharge. [facility] Nursing Note Discussed this sriram weeks meetings, what his plans are for super bowl, IOP. 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 States he and plan on doing more together for health, walks etc. Discussed leisure activity. [facility] Nursing Note Pt up independently, visualized on unit. Pt cooperative with assessment and compliant with medication Normal [facility] 30on 05-09-2024 30 Normal [facility] Nursing Noteon 05-09-2024 Nursing Note Patient is up and steady, withdrawn to room for majority of shift. Pt is cooperative and med compliant. Pt denies SI/HI/AVH. Pt encouraged to notify staff for any questions and concerns. [facility] Progress Noteon 05-09-2024 Progress Note [facility] Progress Note Nutrition rescreen completed. Patient assigned a level 1. Normal [facility] Progress Note [facility] [id number] 05-08-2024 [id number] [facility] CARBOHYDRATE DEFICIENT TRANS FERRINon 05-08-2024 CARBOHYDRATE DEFICIENT TRANSFERRIN 6.8 % High <1.4 [facility] Comment on above: Result Comment: Norm al:0-1.3%Inconclusive: 1.4-1.6%Elevated: greater than or equal to 1.7%Performed via Capillary Electrophoresis Performed By: #### L [id number] ####Philosophy Instructor: CECI DUPREE ([id number])[address] ED Nursing Noteon 05-08-2024 ED Nursing Note Report to Evelyn Watts at [facility] on 4E Normal [facility] ED Nursing Note Report to [facility] a t bedside. Vitals taken. Protective at bedside for final wanding. Belongings, detox rules and paperwork sent with patient/EMS [facility] Nursing Noteon 05-08-2024 Nursing Note [facility] Nursing Note Medication rec. Done with Jace at [facility] at 1200. Normal [facility] Nursing Note Patient received Nicotine Lozenge PRN as per orders at 0850. Normal [facility] Nursing Note Normal [facility] CBC (HEMOGRAM)on 05-07-2024 Erythrocyte distribution width (RBC) [Ratio] 13.4 % Normal 11.5-15.0 [facility] Comment on above: Performed By: #### L [id number] ####Philosophy Instructor: REINIER ZHU ([id number])[facility] [place] (SBAB)[address] Hematocrit (Bld) [Volume fraction] 46.7 % Normal 40.0-52.0 [facility] Comment on above: Performed By: #### L [id number] ####Philosophy Instructor: REINIER ZHU ([id number])[facility]ITAL[facility] ([facility])[address] [place] [address] Hemoglobin (Bld) [Mass/Vol] 16.1 g/dL Normal 13.0-18.0 [facility] Comment on above: Performed By: #### L [id number] ####Philosophy Instructor: REINIER ZHU ([id number])[facility]ITAL[facility]ENTERAn[facility] ([facility])[address] [place] [address] MCH (RBC) [Entitic mass] 32.7 pg Normal 26.0-34.0 [facility] Comment on above: Performed By: #### L [id number] ####Philosophy Instructor: REINIER ZHU ([id number])[facility]ITALCh[facility]ENTER[facility]ADA (SBAB)[address] [place] [address] MCHC 34.5 % Normal 30.5-36.0 [facility] Comment on above: Performed By: #### L [id number] ####Philosophy Instructor: REINIER ZHU ([id number])[facility]ITAL[facility] ([facility])[address] [place] [address] MCV (RBC) [Entitic vol] 94.7 fL Normal 77.0-99.0 [facility] Comment on above: Performed By: #### L [id number] ####Philosophy Instructor: REINIER ZHU ([id number])[facility] (SBHLAB)[address] Platelet mean volume (Bld) [Entitic vol] 8.8 fL Low 9.0-12.7 [facility] Comment on above: Performed By: #### L [id number] ####Philosophy Instructor: REINIER ZHU ([id number])[facility]ITAL[facility] [place] (SBHLAB)[address] Platelets (Bld) [#/Vol] 228 10*3/uL Normal 140-440 [facility] Comment on above: Performed By: #### L [id number] ####Philosophy Instructor: REINIER ZHU ([id number])[facility]ITALCh[facility] WEBBERAnum (SBHLAB)[address] RBC (Bld) [#/Vol] 4.93 10*6/uL Normal 4.40-5.90 [facility] Comment on above: Performed By: #### L [id number] ####Philosophy Instructor: REINIER ZHU ([id number])[facility]ITALCh[facility] CALIGALLUP INDIAN MEDICAL CENTERN (SBHLAB)[address] [place] [address] WBC (Bld) [#/Vol] 5.7 10*3/uL Normal 3.6-10.7 [facility] Comment on above: Performed By: #### L [id number] ####Philosophy Instructor: REINIER ZHU ([id number])[facility]ITAL[facility] WEBBERN (SBHLAB)[address] [place] [address] CBC panel Auto (Bld)on 05-07 Erythrocyte distribution width (RBC) [Ratio] 13.4 % 11.5 - 15.0 % [facility] Hematocrit (Bld) [Volume fraction] 46.7 % 40.0 - 52.0 % [facility] Hemoglobin (Bld) [Mass/Vol] 16.1 g/dL 13.0 - 18.0 g/dL [facility] Interpretation and review of laboratory results Abnormal [facility] MCH (RBC) [Entitic mass] 32.7 pg 26. 0 - 34.[address] [facility] MCHC (RBC) [Mass/Vol] 34.5 % 30.5 - 36.0 % [facility] MCV (RBC) [Entitic vol] 94.7 fL 77.0 - 99.[address] [facility] Platelet mean volume (Bld) [Entitic vol] 8.8 fL Low 9.0 - 12.[address] [facility] Platelets (Bld) [#/Vol] 228 10*3/uL 140 - 440 10*3/uL [facility] RBC (Bld) [#/Vol] 4.93 10*6/uL 4.40 - 5.9 0 10*6/uL [facility] WBC (Bld) [#/Vol] 5.7 10*3/uL 3.6 - 10.7 10*3/uL [facility] COMPREHENSIVE METABOLIC PANE Arnulfo 05-07-2024 Albumin [Mass/Vol] 4.0 g/dL Normal 3.5-5.0 [facility] Comment on above: Performed By: #### Jose Carlos LAWS, LAB17, LAB46 ####Philosophy Instructor: REINIER ZHU ([id number])[facility]ITALA [place] (SBHLAB)[address] ALP [Catalytic activity/Vol] 98 U/L Normal 40-150 [facility] Comment on above: Performed By: #### Jose Carlos LAWS, LAB17, LAB46 ####Philosophy Instructor: REINIER ZHU ([id number])[facility]ITALN (SBHLAB)[address] ALT [Catalytic activity/Vol] 105 U/L High <40 [facility] Comment on above: Performed By: #### Jose Carlos LAWS, LAB17, LAB46 ####Philosophy Instructor: REINIER ZHU ([id number])[facility] [place] (SBHLAB)[address] Anion gap [Moles/Vol] 15 mmol/L High 3-13 [facility] Comment on above: Performed By: #### Jose Carlos LAWS, LAB17, LAB46 ####Philosophy Instructor: REINIER ZHU ([id number])[facility]ITALA [place] (SBHLAB)[address] [place] [address] [place] AST [Catalytic activity/Vol] 99 U/L High <34 [facility] Comment on above: Performed By: #### Jose Carlos LAWS, LAB17, LAB46 ####Philosophy Instructor: REINIER ZHU ([id number])[facility] [place] (SBHLAB)[address] Bilirubin [Mass/Vol] 0.4 mg/dL Normal <1.2 [facility] Comment on above: Performed By: #### Jose Carlos LAWS, LAB17, LAB46 ####Philosophy Instructor: REINIER ZHU ([id number])[facility] [place] (SBHLAB)[address] Calcium [Mass/Vol] 9.1 mg/dL Normal 8.4-10.2 [facility] Comment on above: Performed By: #### Jose Carlos LAWS, LAB17, LAB46 ####Philosophy Instructor: REINIER ZHU ([id number])[facility] [place] (SBHLAB)[address] [place] [address] [place] Chloride [Moles/Vol] 96 mmol/L Low 98-107 [facility] Comment on above: Performed By: #### Jose Carlos LAWS, LAB17, LAB46 ####Philosophy Instructor: REINIER ZHU ([id number])[facility] [place] (SBHLAB)[address] [place] [address] [place] CO2 [Moles/Vol] 26 mmol/L Normal 22-29 [facility] Comment on above: Performed By: #### Jose Carlos LAWS, LAB17, LAB46 ####Philosophy Instructor: REINIER ZHU ([id number])[facility] [place] (SBHLAB)[address] [place] [address] [place] Creatinine [Mass/Vol] 0.73 mg/dL Normal 0.72-1.25 [facility] Comment on above: Performed By: #### Jose Carlos LAWS, LAB17, LAB46 ####Philosophy Instructor: REINIER ZHU ([id number])[facility] [place] (SBHLAB)[address] GLOMERULAR FILTRATION RATE ML/MIN/1.73 SQ M.PREDICTED >90.0 Normal >60.0 [facility] Comment on above: Result Comment: Calc ulation based on the Chronic Kidney Disease Epidemiology Collaboration (CKD-EPI) equation refit without adjustment for race Performed By: #### Jose Carlos LAWS, LAB17, LAB46 ####Philosophy Instructor: REINIER ZHU ([id number])[facility] (SBHLAB)[address] Glucose [Mass/Vol] 92 mg/dL Normal 74-100 [facility] Comment on above: Performed By: #### Jose Carlos LAWS, LAB17, LAB46 ####Philosophy Instructor: REINIER ZHU ([id number])[facility] (SBHLAB)[address] Potassium [Moles/Vol] 4.1 mmol/L Normal 3.5-5.1 [facility] Comment on above: Result Comment: [facility] potassium values may be up to 0.5 mmol/L lower than serum values. Performed By: #### Jose Carlos LAWS, LAB17, LAB46 ####Philosophy Instructor: REINIER ZHU ([id number])[facility] (HLAB)[address] Protein [Mass/Vol] 7.2 g/dL Normal 6.4-8.3 [facility] Comment on above: Performed By: #### Jose Carlos LAWS, LAB17, LAB46 ####Philosophy Instructor: REINIER ZHU ([id number])[facility] (SBHLAB)[address] [place] [address] [place] Sodium [Moles/Vol] 137 mmol/L Normal 136-145 [facility] Comment on above: Performed By: #### Jose Carlos LAWS, LAB17, LAB46 ####Philosophy Instructor: REINIER ZHU ([id number])[facility] (SBHLAB)[address] [place] [address] [place] Urea nitrogen [Mass/Vol] 3 mg/dL Low 9-23 [facility] Comment on above: Performed By: #### L AB103, LAB17, LAB46 ####Philosophy Instructor: REINIER ZHU ([id number])[facility] LAI (SBHLAB)[address] [place] [address] Comprehensive metabolic 1998 panelon 05-07-2024 Albumin [Mass/Vol] 4 g/dL 3.5 - 5.0 g/dL [facility] ALP [Catalytic activity/Vol] 98 U/L 40 - 150 U/L [facility] ALT [Catalytic activity/Vol] 105 U/L High NINF - 40 U/L [facility] Anion gap [Moles/Vol] 15 mmol/L High 3 - 13 mmol/L [facility] AST [Catalytic activity/Vol] 99 U/L High NINF - 34 U/L [facility] Bilirubin [Mass/Vol] 0.4 mg/dL NINF - 1.2 mg/dL [facility] Calcium [Mass/Vol] 9.1 mg/dL 8.4 - 10. 2 mg/dL [facility] Chloride [Moles/Vol] 96 mmol/L Low 98 - 10 7 mmol/L [facility] CO2 [Moles/Vol] 26 mmol/L 22 - 29 mmol/L [facility] Creatinine [Mass/Vol] 0.73 mg/dL 0.72 - 1.25 mg/dL [facility] GFR/1.73 sq M.predicted (S/P/Bld) [Vol rate/Area] - PINF [facility] Comment on above: Calculation based on the Chronic Kidney Disease Epidemiology Collaboration (CKD-EPI) equation refit without adjustment for race Glucose [Mass/Vol] 92 mg/dL 74 - 100 mg/dL [facility] Interpretation and review of laboratory results Abnormal [facility] Potassium [Moles/Vol] 4.1 mmol/L 3.5 - 5.1 mmol/L [facility] Comment on above: Plasma potassium juan ues may be up to 0.5 mmol/L lower than serum values. Protein [Mass/Vol] 7.2 g/dL 6.4 - 8.3 g/dL [facility] Sodium [Moles/Vol] 137 mmol/L 136 - 145 mmol/L [facility] Urea nitrogen [Mass/Vol] 3 mg/dL Low 9 - 23 mg/dL [facility] DRUGS OF ABUSEon 05-07-2024 AMPHETAMINE SCREEN Negative Normal [facility] Comment on above: Performed By: #### L [id number] ####Philosophy Instructor: REINIER ZHU ([id number])[facility]BGALLUP INDIAN MED[facility] CENTERN (SBHLAB)[address] BARBITURATES SCREEN Negative Normal [facility] Comment on above: Performed By: #### L [id number] ####Philosophy Instructor: REINIER ZHU ([id number])[facility]BT[facility] (SBHLAB)[address] BENZODIAZEPINE SCREEN Negative Normal [facility] Comment on above: Performed By: #### L [id number] ####Philosophy Instructor: REINIER ZHU ([id number])[facility] (SBHLAB)[address] COCAINE METAB. SCREEN Negative Normal [facility] Comment on above: Performed By: #### L [id number] ####Philosophy Instructor: REINIER ZHU ([id number])[facility] (SBHLAB)[address] FENTANYL SCREEN, UR QUAL Negative Normal [facility] Comment on above: Result Comment: [place] [...] under separate order. Performed By: #### L [id number] ####Philosophy Instructor: REINIER ZHU ([id number])[facility] [place] (SBHLAB)[address] METHADONE SCREEN Negative Normal [facility] Comment on above: Performed By: #### L [id number] ####Philosophy Instructor: REINIER ZHU ([id number])[facility] [place] (SBHLAB)[address] OPIATES SCREEN Negative Normal [facility] Comment on above: Performed By: #### L [id number] ####Philosophy Instructor: REINIER ZHU ([id number])[facility] [place] (SBHLAB)[address] OXYCODONE SCREEN Negative Normal [facility] Comment on above: Performed By: #### L [id number] ####Philosophy Instructor: REINIER ZHU ([id number])[facility] [place] (SBHLAB)[address] PHENCYCLIDINE SCREEN Negative Normal [facility] Comment on above: Performed By: #### L [id number] ####Philosophy Instructor: REINIER ZHU ([id number])[facility] [place] (SBHLAB)[address] ED Nursing Noteon 05-07-2024 ED Nursing Note Security at bedside for a belongings check Normal [facility] ED Nursing Note Normal [facility] ED Nursing Note [facility]. [facility] de speaking with pt. Normal [facility] ED Provider Noteon ED Provider Note Normal [facility] ETHANOLon 05-07-2024 ETHANOL IN SER/PLAS 351 mg/dL Critically high <10 [facility] Comment on above: Result Comment: [place] R COMMENTS:CRUISE COORDINATOR depression is seen >100 mg/dL.NOTE: This result is for medical treatment only. Analysis performed using non-forensic procedures. Performed By: #### L AB103, LAB17, LAB46 ####Philosophy Instructor: REINIER ZHU ([id number])[facility] [place] (SBHLAB)[address] Ethanol (Bld) [Mass/Vol]Orde red By: Johnathan Giron on 05-07-2024 Ethanol [Mass/Vol] 351 mg/dL Critically high NINF - 10 mg/dL [facility] Interpretation and review of laboratory results Abnormal [facility] CRUISE COORDINATOR depression is se en >100 mg/dL. NOTE: This result is for medical treatment only. Analysis performed using non-forensic procedures. [facility] Laboratory - Chemistry and C hemistry - challengeon 05-07-2024 Magnesium [Mass/Vol] 2 mg/dL 1.6 - 2 .6 mg/dL [facility] Laboratory - Drug toxicology on 05-07-2024 Amphetamines Screen method >1000 ng/mL Ql (U) Negative [facility] Barbiturates Screen method >200 ng/mL Ql (U) Negative [facility] Benzodiazepines Ql (U) Negative [facility] Methadone Screen Ql (U) Negative [facility] Opiates Screen Ql (U) Negative [facility] oxyCODONE Ql (U) Negative [facility] Phencyclidine Ql (U) Negative [facility] Laboratory - Microbiology an d Antimicrobial susceptibilityOrdered By: Jacqueline Smith on 05-07-2024 SARS-CoV-2 (COVID-19) Ag IA.rapid Ql (Resp) Negative Negative [facility] Comment on above: A negative result do es not rule out the possibility of SARS-CoV-2 infection. NAAT-based methods should be considered for symptomatic patients presenting greater than seven days after onset of symptoms. Method: Lateral flow immunoassay. Fact sheets for healthcare providers and patients can be found at the following sites: https://www.fda.gov/media/359892/download https://www.fda.gov/media/692199/download MAGNESIUMon 05-07-2024 Magnesium [Mass/Vol] 2.0 mg/dL Normal 1.6-2.6 [facility] Comment on above: Result Comment: [place] R COMMENTS:Higher values can be expected in females during menses. Performed By: #### L AB103, LAB17, LAB46 ####Philosophy Instructor: REINIER ZHU ([id number])[facility] (SBHLAB)[address] [place] [address] Magnesium [Mass/Vol]on 05-07 Interpretation and review of laboratory results Normal [facility] Higher values can be expected in females during menses. [facility] No Panel Informationon 05-07 COCAINE METAB. SCREEN Negative [facility] FENTANYL SCREEN, UR QUAL Negative [facility] The expected value f or all [...] is needed, request confirmation under separate order. [facility] Progress Noteon 05-07-2024 Progress Note Normal [facility] SARS-COV-2 ANTIGENon 025 SARS-COV-2 ANTIGEN Normal [facility] Comment on above: Performed By: #### L [id number] ####Philosophy Instructor: REINIER ZHU ([id number])[facility] ([facility])[address] [place] [address] SARS-CoV-2 (COVID-19) Ag IA. rapid Ql (Resp)Ordered By: Jacqueline Smith on 05-07-2024 Interpretation and review of laboratory results Normal [facility] 36on 04-27-2024 36 Normal [facility] 36 Schedule a hospital follow-up Normal [facility] 30on 04-12-2024 30 Normal [facility] Progress Noteon 04-12-2024 Progress Note Normal [facility] 30on 04-11-2024 30 Normal [facility] 30 Normal [facility] CBC W Auto Differential pane l (Bld)on 04-11-2024 Basophils (Bld) [#/Vol] 0 10*3/uL 0.0 - 0.2 10*3/uL [facility] Basophils/100 WBC (Bld) 0.9 % 0.0 - 2.0 % [facility] Eosinophils (Bld) [#/Vol] 0.1 10*3/uL 0.0 - 0.5 10*3/uL [facility] Eosinophils/100 WBC (Bld) 1.9 % 0.0 - 6.0 % [facility] Erythrocyte distribution width (RBC) [Ratio] 12.7 % 11.5 - 15.0 % [facility] Hematocrit (Bld) [Volume fraction] 42.5 % 40.0 - 52.0 % [facility] Hemoglobin (Bld) [Mass/Vol] 14.6 g/dL 13.0 - 18.0 g/dL [facility] Immature granulocytes (Bld) [#/Vol] 0 10*3/uL NINF - 0.1 10*3/uL [facility] Immature granulocytes/100 WBC (Bld) 0.2 % 0.0 - 2.0 % [facility] Interpretation and review of laboratory results Abnormal [facility] Lymphocytes (Bld) [#/Vol] 0.8 10*3/uL Low 1.0 - 4.3 10*3/uL [facility] Lymphocytes/100 WBC (Bld) 19.7 % 15.0 - 45.0 % [facility] MCH (RBC) [Entitic mass] 33 pg 26. 0 - 34.[address] [facility] MCHC (RBC) [Mass/Vol] 34.4 % 30.5 - 36.0 % [facility] MCV (RBC) [Entitic vol] 95.9 fL 77.0 - 99.[address] [facility] Monocytes (Bld) [#/Vol] 0.5 10*3/uL 0.0 - 0.9 10*3/uL [facility] Monocytes/100 WBC (Bld) 12.4 % 5.0 - 13.0 % [facility] Neutrophils (Bld) [#/Vol] 2.8 10*3/uL 1.8 - 7.5 10*3/uL [facility] Neutrophils/100 WBC (Bld) 64.9 % 38.0 - 82.0 % [facility] Nucleated RBC/100 WBC (Bld) [Ratio] 0 % [facility] Platelet mean volume (Bld) [Entitic vol] 9.2 fL 9.0 - 12.[address] [facility] Platelets (Bld) [#/Vol] 180 10*3/uL 140 - 440 10*3/uL [facility] RBC (Bld) [#/Vol] 4.43 10*6/uL 4.40 - 5.9 0 10*6/uL [facility] WBC (Bld) [#/Vol] 4.3 10*3/uL 3.6 - 10.7 10*3/uL [facility] CBC WITH AUTO DIFFERENTIALon 04-11-2024 Basophils (Bld) [#/Vol] 0.0 10*3/uL Normal 0.0-0.2 [facility] Comment on above: Performed By: #### L [id number] ####Philosophy Instructor: REINIER ZHU ([id number])[facility] (SBHLAB)[address] [place] [address] Basophils/100 WBC (Bld) 0.9 % Normal 0.0-2.0 [facility] Comment on above: Performed By: #### L [id number] ####Philosophy Instructor: REINIER ZHU ([id number])[facility]BGALLUP [facility]DI[facility] (SBHLAB)[address] Eosinophils (Bld) [#/Vol] 0.1 10*3/uL Normal 0.0-0.5 [facility] Comment on above: Performed By: #### L [id number] ####Philosophy Instructor: REINIER ZHU ([id number])[facility]ALL[facility] (SBHLAB)[address] Eosinophils/100 WBC (Bld) 1.9 % Normal 0.0-6.0 [facility] Comment on above: Performed By: #### L [id number] ####Philosophy Instructor: REINIER ZHU ([id number])[facility] (SBHLAB)[address] Erythrocyte distribution width (RBC) [Ratio] 12.7 % Normal 11.5-15.0 [facility] Comment on above: Performed By: #### L [id number] ####Philosophy Instructor: REINIER ZHU ([id number])[facility] (SBAB)[address] [place] [address] Hematocrit (Bld) [Volume fraction] 42.5 % Normal 40.0-52.0 [facility] Comment on above: Performed By: #### L [id number] ####Philosophy Instructor: REINIER MORINROGER ([phone])[facility] ([facility] Hemoglobin (Bld) [Mass/Vol] 14.6 g/dL Normal 13.0-18.0 [facility] Comment on above: Performed By: #### L [id number] ####Philosophy Instructor: REINIER ZHU ([phone])[facility] ([facility])[address] [place] [address] IMMATURE GRANS % 0.2 % Normal 0.0-2.0 [facility] Comment on above: Performed By: #### L [id number] ####Philosophy Instructor: REINIER MORINROGER ([phone])[facility] ([facility])[address] [place] [address] IMMATURE GRANS ABSOLUTE 0.0 10*3/uL Normal <0.1 [facility] Comment on above: Performed By: #### L [id number] ####Philosophy Instructor: ERINIER ZHU ([phone])[facility] ([facility])[address] [place] [address] Lymphocytes (Bld) [#/Vol] 0.8 10*3/uL Low 1.0-4.3 [facility] Comment on above: Performed By: #### L [id number] ####Philosophy Instructor: REINIER ZHU ([id number])[facility] ([facility])[address] Lymphocytes/100 WBC (Bld) 19.7 % Normal 15.0-45.0 [facility] Comment on above: Performed By: #### L [id number] ####Philosophy Instructor: REINIER ZHU ([id number])[facility] ([facility])[address] MCH (RBC) [Entitic mass] 33.0 pg Normal 26.0-34.0 [facility] Comment on above: Performed By: #### L [id number] ####Philosophy Instructor: REINIER MORINROGER ([id number])[facility] (SB[facility])[address] MCHC 34.4 % Normal 30.5-36.0 [facility] Comment on above: Performed By: #### L [id number] ####Philosophy Instructor: REINIER ZHU ([id number])[facility] WEBBERAnum (SBHLAB)[address] MCV (RBC) [Entitic vol] 95.9 fL Normal 77.0-99.0 [facility] Comment on above: Performed By: #### L [id number] ####Philosophy Instructor: REINIER ZHU ([id number])[facility] CALIYAZN (SBHLAB)[address] Monocytes (Bld) [#/Vol] 0.5 10*3/uL Normal 0.0-0.9 [facility] Comment on above: Performed By: #### L [id number] ####Philosophy Instructor: REINIER ZHU ([id number])[facility] (SB[facility])[address] Monocytes/100 WBC (Bld) 12.4 % Normal 5.0-13.0 [facility] Comment on above: Performed By: #### L [id number] ####Philosophy Instructor: REINIER ZHU ([phone])[facility] BARBYAZN (SBHLAB)[address] NEUTROPHILS ABSOLUTE 2.8 10*3/uL Normal 1.8-7.5 [facility] Comment on above: Performed By: #### L [id number] ####Philosophy Instructor: REINIER ZHU ([phone])[facility] (SB[facility])[address] Neutrophils/100 WBC (Bld) 64.9 % Normal 38.0-82.0 [facility] Comment on above: Performed By: #### L [id number] ####Philosophy Instructor: REINIER ZHU ([id number])[facility] [place] ([facility])[address] NRBC 0.0 /100 WBCs Normal 0.0-2.0 [facility] Comment on above: Performed By: #### L [id number] ####Philosophy Instructor: REINIER ZHU ([phone])[facility] [place] (SB[facility])[address] Platelet mean volume (Bld) [Entitic vol] 9.2 fL Normal 9.0-12.7 [facility] Comment on above: Performed By: #### L [id number] ####Philosophy Instructor: REINIER ZHU ([phone])[facility] [place] (SB[facility])[address] [place] [address] [place] Platelets (Bld) [#/Vol] 180 10*3/uL Normal 140-440 [facility] Comment on above: Performed By: #### L [id number] ####Philosophy Instructor: REINIER ZHU ([phone])[facility] [place] ([facility])[address] [place] [address] [place] RBC (Bld) [#/Vol] 4.43 10*6/uL Normal 4.40-5.90 [facility] Comment on above: Performed By: #### L [id number] ####Philosophy Instructor: REINIER ZHU ([phone])[facility] [place] ([facility])[address] [place] [address] [place] WBC (Bld) [#/Vol] 4.3 10*3/uL Normal 3.6-10.7 [facility] Comment on above: Performed By: #### L [id number] ####Philosophy Instructor: REINIER MARKO ([id number])[facility] WE[facility]ERN (SBHLAB)[address] COMPREHENSIVE METABOLIC PANE Arnulfo 04-11-2024 Albumin [Mass/Vol] 3.5 g/dL Normal 3.5-5.0 [facility] Comment on above: Performed By: #### L AB113, LAB17, [id number] ####Philosophy Instructor: REINIER BATISTACER ([phone])[facility]ITAL[facility] CALIGALLUP [facility]DIAN MEDICAL [facility]ENTERN (SBHLAB)[address] ALP [Catalytic activity/Vol] 82 U/L Normal 40-150 [facility] Comment on above: Performed By: #### L AB113, LAB17, [id number] ####Philosophy Instructor: REINIER MARKO ([phone])[facility]ITALCh[facility]ITUCS[facility] (SBHLAB)[address] ALT [Catalytic activity/Vol] 122 U/L High <40 [facility] Comment on above: Performed By: #### L AB113, LAB17, [id number] ####Philosophy Instructor: REINIER OVIEDOVINAYAK ([phone])[facility] (SBHL[facility])[address] Anion gap [Moles/Vol] 10 mmol/L Normal 3-13 [facility] Comment on above: Performed By: #### L AB113, LAB17, [id number] ####Philosophy Instructor: REINIER BATISTACER ([id number])[facility] VIRAJGALLUP INDIAN MEDICAL CENTERN (SBHLAB)[address] AST [Catalytic activity/Vol] 73 U/L High <34 [facility] Comment on above: Performed By: #### L AB113, LAB17, [id number] ####Philosophy Instructor: REINIER ZHU ([phone])[facility] VIRAJTUCSON [facility] (SBHLAB)[address] Bilirubin [Mass/Vol] 0.7 mg/dL Normal <1.2 [facility] Comment on above: Performed By: #### L AB113, LAB17, DTA301 ####Philosophy Instructor: REINIER ZHU ([phone])[facility]ITAL[facility] CALIYAZN (SBHLAB)[address] Calcium [Mass/Vol] 8.7 mg/dL Normal 8.4-10.2 [facility] Comment on above: Performed By: #### L AB113, LAB17, [id number] ####Philosophy Instructor: REINIER ZHU ([phone])[facility] [place] (SB[facility])[address] Chloride [Moles/Vol] 100 mmol/L Normal 98-107 [facility] Comment on above: Performed By: #### Jose Carlos ABKaleb, LAB17, [id number] ####Philosophy Instructor: REINIER ZHU ([phone])[facility]ITAL[facility] CALIYAZN (SBHLAB)[address] CO2 [Moles/Vol] 22 mmol/L Normal 22-29 [facility] Comment on above: Performed By: #### Jose Carlos ABKaleb, LAB17, [id number] ####Philosophy Instructor: REINIER ZHU ([phone])[facility] VIRAJYAZN (SBHLAB)[address] Creatinine [Mass/Vol] 0.66 mg/dL Low 0.72-1.25 [facility] Comment on above: Performed By: #### Jose Carlos ABKaleb, LAB17, [id number] ####Philosophy Instructor: REINIER ZHU ([id number])[facility] VIRAJYAZN (SBHLAB)[address] GLOMERULAR FILTRATION RATE ML/MIN/1.73 SQ M.PREDICTED >90.0 Normal >60.0 [facility] Comment on above: Result Comment: Calc ulation based on the Chronic Kidney Disease Epidemiology Collaboration (CKD-EPI) equation refit without adjustment for race Performed By: #### L AB113, LAB17, RNP274 ####Philosophy Instructor: REINIER ZHU ([phone])[facility] VIRAJYAZN (SBHLAB)[address] Glucose [Mass/Vol] 100 mg/dL Normal 74-100 [facility] Comment on above: Performed By: #### L AB113, LAB17, [id number] ####Philosophy Instructor: REINIER ZHU ([phone])[facility] VIRAJTUCSON [facility] (SBHLAB)[address] Potassium [Moles/Vol] 4.1 mmol/L Normal 3.5-5.1 [facility] Comment on above: Result Comment: [facility] potassium values may be up to 0.5 mmol/L lower than serum values. Performed By: #### L AB113, LAB17, OSL568 ####Philosophy Instructor: REINIER ZHU ([phone])[facility] (SBHLAB)[address] Protein [Mass/Vol] 6.3 g/dL Low 6.4-8.3 [facility] Comment on above: Performed By: #### Jose Carlos JOHNSON, LAB17, [id number] ####Philosophy Instructor: REINIER ZHU ([phone])[facility] (SBHL[facility])[address] Sodium [Moles/Vol] 132 mmol/L Low 136-145 [facility] Comment on above: Performed By: #### L AB113, LAB17, [id number] ####Philosophy Instructor: REINIER ZHU ([phone])[facility] (SBHL[facility])[address] Urea nitrogen [Mass/Vol] 6 mg/dL Low 9-23 [facility] Comment on above: Performed By: #### L AB113, LAB17, AMU035 ####Philosophy Instructor: REINIER ZHU ([phone])[facility] (SB[facility])[address] Comprehensive metabolic 1998 panelon 04-11-2024 Albumin [Mass/Vol] 3.5 g/dL 3.5 - 5.0 g/dL [facility] ALP [Catalytic activity/Vol] 82 U/L 40 - 150 U/L [facility] ALT [Catalytic activity/Vol] 122 U/L High [facility] - 40 U/L [facility] Anion gap [Moles/Vol] 10 mmol/L 3 - 13 mmol/L [facility] AST [Catalytic activity/Vol] 73 U/L High [facility] - 34 U/L [facility] Bilirubin [Mass/Vol] 0.7 mg/dL NINF - 1.2 mg/dL [facility] Calcium [Mass/Vol] 8.7 mg/dL 8.4 - 10. 2 mg/dL [facility] Chloride [Moles/Vol] 100 mmol/L 98 - 10 7 mmol/L [facility] CO2 [Moles/Vol] 22 mmol/L 22 - 29 mmol/L [facility] Creatinine [Mass/Vol] 0.66 mg/dL Low 0.72 - 1.25 mg/dL [facility] GFR/1.73 sq M.predicted (S/P/Bld) [Vol rate/Area] - PINF [facility] Comment on above: Calculation based on the Chronic Kidney Disease Epidemiology Collaboration (CKD-EPI) equation refit without adjustment for race Glucose [Mass/Vol] 100 mg/dL 74 - 100 mg/dL [facility] Interpretation and review of laboratory results Abnormal [facility] Potassium [Moles/Vol] 4.1 mmol/L 3.5 - 5.1 mmol/L [facility] Comment on above: Plasma potassium juan ues may be up to 0.5 mmol/L lower than serum values. Protein [Mass/Vol] 6.3 g/dL Low 6.4 - 8.3 g/dL [facility] Sodium [Moles/Vol] 132 mmol/L Low 136 - 145 mmol/L [facility] Urea nitrogen [Mass/Vol] 6 mg/dL Low 9 - 23 mg/dL [facility] Laboratory - Chemistry and C hemistry - challengeon 04-11-2024 Magnesium [Mass/Vol] 1.8 mg/dL 1.6 - 2 .6 mg/dL [facility] MAGNESIUMon 04-11-2024 Magnesium [Mass/Vol] 1.8 mg/dL Normal 1.6-2.[address] [facility] Comment on above: Result Comment: ORDE R COMMENTS:Higher values can be expected in females during menses. Performed By: #### L AB113, LAB17, [id number] ####Philosophy Instructor: REINIER ZHU ([phone])[facility]ITAL[facility] HOYT (SBHLAB)[address] [place] [address] [place] Magnesium [Mass/Vol]on 04-11 Higher values can be expected in females during menses. [facility] No Panel Informationon 04-11 Interpretation and review of laboratory results Normal [facility] PHOSPHORUSon 04-11-2024 Phosphate [Mass/Vol] 3.7 mg/dL Normal 2.3-4.7 [facility] Comment on above: Performed By: #### L AB113, LAB17, [id number] ####Philosophy Instructor: REINIER ZHU ([phone])[facility] (SBHLAB)[address] [place] [address] [place] Phosphate [Moles/Vol]on 04-01 Phosphate [Mass/Vol] 3.7 mg/dL 2.3 - 4 .7 mg/dL [facility] Progress Noteon 04-11-2024 Progress Note Normal [facility] Progress [facility] Progress Note Normal [facility] Consulton 04-10-2024 Consult Normal [facility] ED Nursing Noteon 04-10-2024 ED Nursing Note Pt sleeping Normal [facility] ED Nursing Note Pt sleeping Normal [facility] ED Nursing Note Pt sleeping Normal [facility] ED Nursing Note Pt sleeping Normal [facility] Laboratory - Drug toxicology Ordered By: Lisa Oates on 04-10-2024 Amphetamines Ql (U) Negative Negative [facility] Barbiturates screen method Nom (U) Negative Negative [facility] Benzodiazepines screen method Nom (U) Negative Negative [facility] Cocaine Ql (U) Negative Negative [facility] Methadone Ql (U) Negative Negative [facility] Opiates Screen Ql (U) Negative [facility] No Panel InformationOrdered By: Lisa Oates on 04-10-2024 OXYCODONE/OXYMORPHONE Negative Negative [facility] PCP Negative Negative [facility] The expected value for the drugs [...] treatment only. Analysis performed using non-forensic procedures. [facility] Nursing Noteon 04-10-2024 Nursing Note Pt refusing to let R N put side rail of ED stretcher up. Pt educated on seizure precautions and dangers with withdrawls. Pt still refusing. Will continue to monitor. Normal [facility] CBC W Auto Differential pane l (Bld)on 04-09-2024 Basophils (Bld) [#/Vol] 0.1 10*3/uL 0.0 - 0.2 10*3/uL [facility] Basophils/100 WBC (Bld) 1.4 % 0.0 - 2.0 % [facility] Eosinophils (Bld) [#/Vol] 0.1 10*3/uL 0.0 - 0.5 10*3/uL [facility] Eosinophils/100 WBC (Bld) 2.3 % 0.0 - 6.0 % [facility] Erythrocyte distribution width (RBC) [Ratio] 13 % 11.5 - 15.0 % [facility] Hematocrit (Bld) [Volume fraction] 46.6 % 40.0 - 52.0 % [facility] Hemoglobin (Bld) [Mass/Vol] 16.2 g/dL 13.0 - 18.0 g/dL [facility] Immature granulocytes (Bld) [#/Vol] 0 10*3/uL NINF - 0.1 10*3/uL [facility] Immature granulocytes/100 WBC (Bld) 0.2 % 0.0 - 2.0 % [facility] Interpretation and review of laboratory results Abnormal [facility] Lymphocytes (Bld) [#/Vol] 1.7 10*3/uL 1.0 - 4.3 10*3/uL [facility] Lymphocytes/100 WBC (Bld) 38.4 % 15.0 - 45.0 % [facility] MCH (RBC) [Entitic mass] 33.1 pg 26. 0 - 34.[address] [facility] MCHC (RBC) [Mass/Vol] 34.8 % 30.5 - 36.0 % [facility] MCV (RBC) [Entitic vol] 95.3 fL 77.0 - 99.[address] [facility] Monocytes (Bld) [#/Vol] 0.6 10*3/uL 0.0 - 0.9 10*3/uL [facility] Monocytes/100 WBC (Bld) 13.9 % High 5.0 - 13.0 % [facility] Neutrophils (Bld) [#/Vol] 1.9 10*3/uL 1.8 - 7.5 10*3/uL [facility] Neutrophils/100 WBC (Bld) 43.8 % 38.0 - 82.0 % [facility] Nucleated RBC/100 WBC (Bld) [Ratio] 0 % [facility] Platelet mean volume (Bld) [Entitic vol] 8.8 fL Low 9.0 - 12.[address] [facility] Platelets (Bld) [#/Vol] 214 10*3/uL 140 - 440 10*3/uL [facility] RBC (Bld) [#/Vol] 4.89 10*6/uL 4.40 - 5.9 0 10*6/uL [facility] WBC (Bld) [#/Vol] 4.4 10*3/uL 3.6 - 10.7 10*3/uL [facility] CBC WITH AUTO DIFFERENTIALon 04-09-2024 Basophils (Bld) [#/Vol] 0.1 10*3/uL Normal 0.0-0.2 [facility] Comment on above: Performed By: #### L [id number] ####Philosophy Instructor: REINIER ZHU ([phone])[facility] ([facility])[address] [place] [address] Basophils/100 WBC (Bld) 1.4 % Normal 0.0-2.0 [facility] Comment on above: Performed By: #### L [id number] ####Philosophy Instructor: REINIER ZHU ([id number])[facility]ITAL[facility] (SBHLAB)[address] Eosinophils (Bld) [#/Vol] 0.1 10*3/uL Normal 0.0-0.5 [facility] Comment on above: Performed By: #### L [id number] ####Philosophy Instructor: REINIER ZHU ([phone])[facility] [place] (SB[facility])[address] Eosinophils/100 WBC (Bld) 2.3 % Normal 0.0-6.0 [facility] Comment on above: Performed By: #### L [id number] ####Philosophy Instructor: REINIER ZHU ([phone])[facility] [place] (SBHLAB)[address] Erythrocyte distribution width (RBC) [Ratio] 13.0 % Normal 11.5-15.0 [facility] Comment on above: Performed By: #### L [id number] ####Philosophy Instructor: REINIER ZHU ([id number])[facility] [place] (SBHLAB)[address] Hematocrit (Bld) [Volume fraction] 46.6 % Normal 40.0-52.0 [facility] Comment on above: Performed By: #### L [id number] ####Philosophy Instructor: REINIER ZHU ([id number])[facility] (SBHLAB)[address] Hemoglobin (Bld) [Mass/Vol] 16.2 g/dL Normal 13.0-18.0 [facility] Comment on above: Performed By: #### L [id number] ####Philosophy Instructor: REINIER ZHU ([phone])[facility] [place] (SB[facility]AB)[address] IMMATURE GRANS % 0.2 % Normal 0.0-2.0 [facility] Comment on above: Performed By: #### L [id number] ####Philosophy Instructor: REINIER ZHU ([phone])[facility]BGALLUP [facility]DI[facility]ERN (SBHLAB)[address] IMMATURE GRANS ABSOLUTE 0.0 10*3/uL Normal <0.1 [facility] Comment on above: Performed By: #### L [id number] ####Philosophy Instructor: REINIER MORINROGER ([phone])[facility] [place] (SB[facility]AB)[address] Lymphocytes (Bld) [#/Vol] 1.7 10*3/uL Normal 1.0-4.3 [facility] Comment on above: Performed By: #### L [id number] ####Philosophy Instructor: REINIER MARKO ([phone])[facility] (SBHLAB)[address] Lymphocytes/100 WBC (Bld) 38.4 % Normal 15.0-45.0 [facility] Comment on above: Performed By: #### L [id number] ####Philosophy Instructor: REINIER MORINROGER ([phone])[facility] (SBHLAB)[address] MCH (RBC) [Entitic mass] 33.1 pg Normal 26.0-34.0 [facility] Comment on above: Performed By: #### L [id number] ####Philosophy Instructor: REINIER MORINROGER ([phone])[facility] (SBHLAB)[address] [place] [address] MCHC 34.8 % Normal 30.5-36.0 [facility] Comment on above: Performed By: #### L [id number] ####Philosophy Instructor: REINIER MORINROGER ([id number])[facility] [place] (SBHLAB)[address] MCV (RBC) [Entitic vol] 95.3 fL Normal 77.0-99.0 [facility] Comment on above: Performed By: #### L [id number] ####Philosophy Instructor: REINIER ZHU ([id number])[facility]BGALLUP [facility]DI[facility] (SBHLAB)[address] Monocytes (Bld) [#/Vol] 0.6 10*3/uL Normal 0.0-0.9 [facility] Comment on above: Performed By: #### L [id number] ####Philosophy Instructor: REINIER ZHU ([id number])[facility] (SBHLAB)[address] Monocytes/100 WBC (Bld) 13.9 % High 5.0-13.0 [facility] Comment on above: Performed By: #### L [id number] ####Philosophy Instructor: REINIER ZHU ([id number])[facility] [place] (SBHLAB)[address] NEUTROPHILS ABSOLUTE 1.9 10*3/uL Normal 1.8-7.5 [facility] Comment on above: Performed By: #### L [id number] ####Philosophy Instructor: REINIER ZHU ([id number])[facility] [place] (SB[facility])[address] Neutrophils/100 WBC (Bld) 43.8 % Normal 38.0-82.0 [facility] Comment on above: Performed By: #### L [id number] ####Philosophy Instructor: REINIER ZHU ([id number])[facility] (SBHLAB)[address] NRBC 0.0 /100 WBCs Normal 0.0-2.0 [facility] Comment on above: Performed By: #### L [id number] ####Philosophy Instructor: REINIER ZHU ([phone])[facility] [place] (SB[facility])[address] Platelet mean volume (Bld) [Entitic vol] 8.8 fL Low 9.0-12.7 [facility] Comment on above: Performed By: #### L [id number] ####Philosophy Instructor: REINIER ZHU ([phone])[facility] [place] (SBHLAB)[address] [place] [address] [place] Platelets (Bld) [#/Vol] 214 10*3/uL Normal 140-440 [facility] Comment on above: Performed By: #### L [id number] ####Philosophy Instructor: REINIER ZHU ([id number])[facility] (SBHLAB)[address] RBC (Bld) [#/Vol] 4.89 10*6/uL Normal 4.40-5.90 [facility] Comment on above: Performed By: #### L [id number] ####Philosophy Instructor: REINIER ZHU ([phone])[facility] (SBHLAB)[address] WBC (Bld) [#/Vol] 4.4 10*3/uL Normal 3.6-10.7 [facility] Comment on above: Performed By: #### L [id number] ####Philosophy Instructor: REINIER ZHU ([id number])[facility] (SBHLAB)[address] COMPLETE URINALYSISon 2024 BILIRUBIN, TOTAL PRESENCE IN URINE Negative Normal Negative [facility] Comment on above: Performed By: #### L [id number] ####Philosophy Instructor: REINIER ZHU ([id number])[facility] (SBHLAB)[address] [place] [address] Clarity (U) Clear Normal Clear [facility] Comment on above: Performed By: #### L [id number] ####Philosophy Instructor: REINIER ZHU ([phone])[facility] (SBHLAB)[address] [place] [address] Color (U) Light Yellow Normal Lt. Yellow [facility] Comment on above: Performed By: #### L [id number] ####Philosophy Instructor: REINIER ZHU ([id number])[facility] (SBHLAB)[address] [place] [address] GLUCOSE (MG/DL) IN URINE Normal Normal Nor mal (<70) [facility] Comment on above: Performed By: #### L [id number] ####Philosophy Instructor: REINIER MORINROGER ([phone])[facility]ALLUP [facility] (SBHLAB)[address] HEMOGLOBIN PRESENCE IN URINE Negative Normal Negative [facility] Comment on above: Performed By: #### L [id number] ####Philosophy Instructor: REINIER MORINROGER ([id number])[facility] (SBHLAB)[address] Ketones Ql (U) Negative Normal Negative [facility] Comment on above: Performed By: #### L [id number] ####Philosophy Instructor: REINIER ZHU ([phone])[facility] ([facility])[address] LEUKOCYTE ESTERASE PRESENCE IN URINE BY TEST STRIP Negative Normal Negative [facility] Comment on above: Performed By: #### L [id number] ####Philosophy Instructor: REINIER ZHU ([id number])[facility] NITRITE PRESENCE IN URINE Negative Normal Negative [facility] Comment on above: Performed By: #### L [id number] ####Philosophy Instructor: REINIER ZHU ([id number])[facility] ([facility] pH (U) 5.5 [pH] Normal 5.0-8.0 [facility] Comment on above: Performed By: #### L [id number] ####Philosophy Instructor: REINIER ZHU ([id number])[facility] ([facility])[address] [place] [address] [place] Protein (U) [Mass/Vol] Negative Normal Negative [facility] Comment on above: Performed By: #### L [id number] ####Philosophy Instructor: REINIER ZHU ([id number])[facility] ([facility])[address] Specific gravity (U) [Rel density] 1.010 Normal 1.005-1.030 [facility] Comment on above: Performed By: #### L AB347 ####Philosophy Instructor: REINIER ZHU ([id number])[facility] ([facility])[address] UROBILINOGEN (MG/DL) IN URINE Normal Normal Normal (0-1) [facility] Comment on above: Performed By: #### L AB347 ####Philosophy Instructor: REINIER ZHU ([id number])[facility] ([facility])[address] COMPREHENSIVE METABOLIC PANE Arnulfo 04-09-2024 Albumin [Mass/Vol] 3.9 g/dL Normal 3.5-5.0 [facility] Comment on above: Performed By: #### L AB46, LAB99, LAB17, [id number] ####Philosophy Instructor: REINIER ZHU ([phone])ST. [facility]OSPITALChika WEBBERN (SBHLAB)[address] ALP [Catalytic activity/Vol] 94 U/L Normal 40-150 [facility] Comment on above: Performed By: #### L AB46, LAB99, LAB17, [id number] ####Philosophy Instructor: REINIER ZHU ([id number])[facility]ITAL[facility] [place] (SBHLAB)[address] ALT [Catalytic activity/Vol] 189 U/L High <40 [facility] Comment on above: Performed By: #### L AB46, LAB99, LAB17, [id number] ####Philosophy Instructor: REINIER ZHU ([id number])[facility] [place] (SBHLAB)[address] Anion gap [Moles/Vol] 11 mmol/L Normal 3-13 [facility] Comment on above: Performed By: #### L AB46, LAB99, LAB17, [id number] ####Philosophy Instructor: REINIER ZHU ([id number])[facility] [place] (SBHLAB)[address] AST [Catalytic activity/Vol] 136 U/L High <34 [facility] Comment on above: Performed By: #### L AB46, LAB99, LAB17, [id number] ####Philosophy Instructor: REINIER ZHU ([id number])[facility] (SBHLAB)[address] Bilirubin [Mass/Vol] 0.5 mg/dL Normal <1.2 [facility] Comment on above: Performed By: #### L AB46, LAB99, LAB17, [id number] ####Philosophy Instructor: REINIER ZHU ([id number])[facility] (SBHLAB)[address] Calcium [Mass/Vol] 8.9 mg/dL Normal 8.4-10.2 [facility] Comment on above: Performed By: #### L AB46, LAB99, LAB17, [id number] ####Philosophy Instructor: REINIER ZHU ([id number])[facility] (SBHLAB)[address] Chloride [Moles/Vol] 99 mmol/L Normal 98-107 [facility] Comment on above: Performed By: #### L AB46, LAB99, LAB17, [id number] ####Philosophy Instructor: REINIER ZHU ([phone])[facility] (SBHLAB)[address] [place] [address] [place] CO2 [Moles/Vol] 25 mmol/L Normal 22-29 [facility] Comment on above: Performed By: #### L AB46, LAB99, LAB17, [id number] ####Philosophy Instructor: REINIER ZHU ([id number])[facility] (SBHLAB)[address] Creatinine [Mass/Vol] 0.65 mg/dL Low 0.72-1.25 [facility] Comment on above: Performed By: #### L AB46, LAB99, LAB17, [id number] ####Philosophy Instructor: REINIER ZHU ([id number])[facility] (SBHLAB)[address] GLOMERULAR FILTRATION RATE ML/MIN/1.73 SQ M.PREDICTED >90.0 Normal >60.0 [facility] Comment on above: Result Comment: Calc ulation based on the Chronic Kidney Disease Epidemiology Collaboration (CKD-EPI) equation refit without adjustment for race Performed By: #### L AB46, LAB99, LAB17, [id number] ####Philosophy Instructor: REINIER ZHU ([id number])[facility] (SBHLAB)[address] Glucose [Mass/Vol] 91 mg/dL Normal 74-100 [facility] Comment on above: Performed By: #### L AB46, LAB99, LAB17, [id number] ####Philosophy Instructor: REINIER ZHU ([id number])[facility] ([facility] [place] [address] Potassium [Moles/Vol] 4.4 mmol/L Normal 3.5-5.1 [facility] Comment on above: Result Comment: [facility] potassium values may be up to 0.5 mmol/L lower than serum values. Performed By: #### L AB46, LAB99, LAB17, [id number] ####Philosophy Instructor: REINIER ZHU ([phone])[facility] ([facility])[address] Protein [Mass/Vol] 7.1 g/dL Normal 6.4-8.3 [facility] Comment on above: Performed By: #### L AB46, LAB99, LAB17, [id number] ####Philosophy Instructor: REINIER ZHU ([id number])[facility] ([facility])[address] Sodium [Moles/Vol] 135 mmol/L Low 136-145 [facility] Comment on above: Performed By: #### L AB46, LAB99, LAB17, [id number] ####Philosophy Instructor: REINIER ZHU ([id number])[facility] (SBHLAB)[address] Urea nitrogen [Mass/Vol] 5 mg/dL Low 9-23 [facility] Comment on above: Performed By: #### L AB46, LAB99, LAB17, [id number] ####Philosophy Instructor: REINIER ZHU ([id number])[facility]ITALCh[facility] [place]T (SBHLAB)[address] Comprehensive metabolic 1998 panelon 04-09-2024 Albumin [Mass/Vol] 3.9 g/dL 3.5 - 5.0 g/dL [facility] ALP [Catalytic activity/Vol] 94 U/L 40 - 150 U/L [facility] ALT [Catalytic activity/Vol] 189 U/L [facility]/L [facility] Anion gap [Moles/Vol] 11 mmol/L 3 - 13 mmol/L [facility] AST [Catalytic activity/Vol] 136 U/L High [facility] 34 U/L [facility] Bilirubin [Mass/Vol] 0.5 mg/dL NINF - 1.2 mg/dL [facility] Calcium [Mass/Vol] 8.9 mg/dL 8.4 - 10. 2 mg/dL [facility] Chloride [Moles/Vol] 99 mmol/L 98 - 10 7 mmol/L [facility] CO2 [Moles/Vol] 25 mmol/L 22 - 29 mmol/L [facility] Creatinine [Mass/Vol] 0.65 mg/dL Low 0.72 - 1.25 mg/dL [facility] GFR/1.73 sq M.predicted (S/P/Bld) [Vol rate/Area] - PINF [facility] Comment on above: Calculation based on the Chronic Kidney Disease Epidemiology Collaboration (CKD-EPI) equation refit without adjustment for race Glucose [Mass/Vol] 91 mg/dL 74 - 100 mg/dL [facility] Interpretation and review of laboratory results Abnormal [facility] Potassium [Moles/Vol] 4.4 mmol/L 3.5 - 5.1 mmol/L [facility] Comment on above: Plasma potassium juan ues may be up to 0.5 mmol/L lower than serum values. Protein [Mass/Vol] 7.1 g/dL 6.4 - 8.3 g/dL [facility] Sodium [Moles/Vol] 135 mmol/L Low 136 - 145 mmol/L [facility] Urea nitrogen [Mass/Vol] 5 mg/dL Low 9 - 23 mg/dL [facility] DRUGS OF ABUSEon 04-09-2024 AMPHETAMINE SCREEN Negative Normal [facility] Comment on above: Performed By: #### L [id number] ####Philosophy Instructor: REINIER ZHU ([id number])[facility] ([facility])[address] BARBITURATES SCREEN Negative Normal [facility] Comment on above: Performed By: #### L [id number] ####Philosophy Instructor: REINIER ZHU ([id number])[facility] ([facility])[address] BENZODIAZEPINE SCREEN Negative Normal [facility] Comment on above: Performed By: #### L [id number] ####Philosophy Instructor: REINIER ZHU ([id number])[facility] ([facility])[address] COCAINE METAB. SCREEN Negative Normal [facility] Comment on above: Performed By: #### L [id number] ####Philosophy Instructor: REINIER ZHU ([id number])[facility] ([facility])[address] [place] [address] FENTANYL SCREEN, UR QUAL Negative Normal [facility] Comment on above: Result Comment: [place] [...] under separate order. Performed By: #### L [id number] ####Philosophy Instructor: REINIER ZHU ([id number])[facility] BARBGALLUP [facility]DI[facility] (SBHLAB)[address] METHADONE SCREEN Negative Normal [facility] Comment on above: Performed By: #### L [id number] ####Philosophy Instructor: REINIER MORINROGER ([id number])[facility] [place] (SBHLAB)[address] OPIATES SCREEN Negative Normal [facility] Comment on above: Performed By: #### L [id number] ####Philosophy Instructor: REINIER MORINROGER ([id number])[facility]ALL[facility] (SBHLAB)[address] OXYCODONE SCREEN Negative Normal [facility] Comment on above: Performed By: #### L [id number] ####Philosophy Instructor: REINIER ZHU ([id number])[facility] BARBGALLUP [facility]DI[facility]ENTERN (SBHLAB)[address] PHENCYCLIDINE SCREEN Negative Normal [facility] Comment on above: Performed By: #### L [id number] ####Philosophy Instructor: REINIER ZHU ([phone])[facility] (SBHLAB)[address] [place] [address] ECG 12-LEADon 04-09-2024 ECG 12-LEAD IMPRESSION: Sinus rhythm Borderline prolonged QT interval No significant changes from prior EKG Electronically Signed On 04-09-2024 22:41:09 EST by Kolby Whiteside Normal [facility] ED Nursing Noteon 04-09-2024 ED Nursing Note Patient seeking deto x from ETOH. 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 Normal [facility] ED Provider Noteon ED Provider Note Normal [facility] ETHANOLon 04-09-2024 ETHANOL IN SER/PLAS 334 mg/dL Critically high <10 [facility] Comment on above: Result Comment: [place] Lagunas COMMENTS:CRUISE COORDINATOR depression is seen >100 mg/dL.NOTE: This result is for medical treatment only. Analysis performed using non-forensic procedures. Performed By: #### L AB46, LAB99, LAB17, [id number] ####Philosophy Instructor: REINIER ZHU ([id number])[facility] ([facility])[address] [place] [address] Ethanol (Bld) [Mass/Vol]Orde red By: Johnathan Giron on 04-09-2024 Ethanol [Mass/Vol] 334 mg/dL Critically high NINF - 10 mg/dL [facility] Interpretation and review of laboratory results Abnormal [facility] CRUISE COORDINATOR depression is se en >100 mg/dL. NOTE: This result is for medical treatment only. Analysis performed using non-forensic procedures. [facility] LIPASEon 04-09-2024 Lipase [Catalytic activity/Vol] 44 U/L Normal <55 [facility] Comment on above: Performed By: #### L AB46, LAB99, LAB17, [id number] ####Philosophy Instructor: REINIER ZHU ([id number])[facility] ([facility])[address] [place] [address] Laboratory - Chemistry and C hemistry - challengeon 04-09-2024 Lipase [Catalytic activity/Vol] 44 U/L NINF - 55 U/L [facility] Magnesium [Mass/Vol] 2 mg/dL 1.6 - 2 .6 mg/dL [facility] Laboratory - Drug toxicology on 04-09-2024 Amphetamines Screen method >1000 ng/mL Ql (U) Negative [facility] Barbiturates Screen method >200 ng/mL Ql (U) Negative [facility] Benzodiazepines Ql (U) Negative [facility] Methadone Screen Ql (U) Negative [facility] Opiates Screen Ql (U) Negative [facility] oxyCODONE Ql (U) Negative [facility] Phencyclidine Ql (U) Negative [facility] Laboratory - Microbiology an d Antimicrobial susceptibilityOrdered By: Jacqueline Smith on 04-09-2024 SARS-CoV-2 (COVID-19) Ag IA.rapid Ql (Resp) Negative Negative [facility] Comment on above: A negative result do es not rule out the possibility of SARS-CoV-2 infection. NAAT-based methods should be considered for symptomatic patients presenting greater than seven days after onset of symptoms. Method: Lateral flow immunoassay. Fact sheets for healthcare providers and patients can be found at the following sites: https://www.fda.gov/media/776852/download https://www.fda.gov/media/930565/download MAGNESIUMon 04-09-2024 Magnesium [Mass/Vol] 2.0 mg/dL Normal 1.6-2.6 [facility] Comment on above: Result Comment: [place] Lag[place] COMMENTS:Higher values can be expected in females during menses. Performed By: #### L AB46, LAB99, LAB17, [id number] ####Philosophy Instructor: REINIER ZHU ([id number])[facility] ([facility])[address] [place] [address] Magnesium [Mass/Vol]on 04-09 Higher values can be expected in females during menses. [facility] No Panel Informationon 04-09 COCAINE METAB. SCREEN Negative [facility] FENTANYL SCREEN, UR QUAL Negative [facility] The expected value f or all [...] is needed, request confirmation under separate order. [facility] P [place] 65 degrees [facility] [place] Interval [address] [facility] QRS [place] [address] [facility] QRSD Interval 96 ms [facility] QT Interval [address] [facility] QTC Interval [address] [facility] T Wave [place] [address] [facility] Sinus rhythm Borderline prolonged QT interval No significant changes from prior EKG Electronically Signed On 04-09-2024 22:41:09 EST by Kolby Little, DO - 04/10/2024 IMPRESSION: Sinus rhythm Borderline prolonged QT interval No significant changes from prior EKG Electronically Signed On 04-09-2024 22:41:09 EST by Kolby Whiteside [facility] Interpretation and review of laboratory results Normal [facility] SARS-COV-2 ANTIGENon 025 SARS-COV-2 ANTIGEN Normal [facility] Comment on above: Performed By: #### L [id number] ####Philosophy Instructor: REINIER ZHU ([id number])[facility] ([facility])[address] [place] [address] SARS-CoV-2 (COVID-19) Ag IA. rapid Ql (Resp)Ordered By: Jacqueline Smith on 04-09-2024 Interpretation and review of laboratory results Normal [facility] UNCONFIRMED DRUG SCREENon Amphetamines Ql (U) Negative Normal Negative [facility] Comment on above: Performed By: #### L [id number] ####Philosophy Instructor: CECI DUPREE ([id number])[facility] ([facility])[address] [place] [address] BARBITURATES Negative Normal Negative [facility] Comment on above: Performed By: #### L [id number] ####Philosophy Instructor: CECI DUPREE ([id number])[facility] ([facility])[address] [place] [address] Benzodiazepines Ql (U) Negative Normal Negative [facility] Comment on above: Performed By: #### L [id number] ####Philosophy Instructor: CECI DUPREE ([id number])[facility] ([facility])[address] [place] [address] [place] Cocaine Ql (U) Negative Normal Negative [facility] Comment on above: Performed By: #### L [id number] ####Philosophy Instructor: CECI DUPREE ([id number])[facility] ([facility])[address] [place] [address] [place] Methadone Ql (U) Negative Normal Negative [facility] Comment on above: Performed By: #### L [id number] ####Philosophy Instructor: CECI DUPREE ([id number])[facility] ([facility])[address] [place] [address] Opiates Ql (U) Negative Normal Negative [facility] Comment on above: Performed By: #### L [id number] ####Philosophy Instructor: CECI DUPREE ([id number])[facility] ([facility])[address] [place] [address] OXYCODONE/OXYMORPHONE Negative Normal Negative [facility] Comment on above: Performed By: #### L [id number] ####Philosophy Instructor: CECI DUPREE ([id number])[facility] ([facility])[address] [place] [address] PCP Negative Normal Negative [facility] Comment on above: Result Comment: [place] [...] using non-forensic procedures. Performed By: #### L [id number] ####Philosophy Instructor: CECI DUPREE ([id number])[facility] ([facility])[address] [place] [address] Urinalysis complete panel (U )on 04-09-2024 Bilirubin Ql (U) Negative Negative mg/dL [facility] Clarity (U) Clear Clear [facility] Color (U) Light Yellow Lt. Yellow [facility] Glucose Ql (U) Normal Normal (<70) mg/dL [facility] Hemoglobin Ql (U) Negative Negative mg/dL [facility] Interpretation and review of laboratory results Normal [facility] Ketones (U) [Mass/Vol] Negative Negat shiv mg/dL [facility] Leukocyte esterase Test strip Ql (U) Negative Negative Estefani/uL [facility] Nitrite Ql (U) Negative Negative [facility] th pH (U) 5.5 [pH] 5.0 - 8.[address] [facility] Protein (U) [Mass/Vol] Negative Negat shiv mg/dL [facility] Specific gravity (U) [Rel density] 1.01 1.005 - 1.030 [facility] Urobilinogen (U) [Mass/Vol] Normal Normal (0-1) mg/dL [facility] Vital signson 04-09-2024 Heart rate 87 /min bpm [facility] 37on 02-28-2024 37 Normal [facility] Progress Noteon 02-28-2024 Progress Note Normal [facility] Progress Noteon 02-18-2024 Progress Note Normal [facility] 36on 02-14-2024 36 I was able to speak with patient, I notified him of the results, and provided him with the number to the clinic so he can call to set up an appointment. I also sent information to his [facility] for there referral for him as well to has access to that way. Normal [facility] 36on 02-13-2024 36 Normal [facility] 36 Normal [facility] 36 error Normal [facility] CT LUNG SCREENING LOW DOSEon 02-13-2024 CT LUNG SCREENING LOW DOSE Normal [facility] 36on 02-06-2024 36 Seen yesterday No future appt Normal [facility] 36 06/26/23 last filled Seen yesterday. No future appt set up Normal [facility] Progress Noteon 02-05-2024 Progress Note Normal [facility] Progress Noteon 01-28-2024 Progress Note Normal [facility] 30on 01-24-2024 30 Normal [facility] [id number] 01-24-2024 [id number] Normal [facility] Nursing Noteon 01-24-2024 Nursing Note Normal [facility] Nursing Note Patient up, social with peers with appropriate behavior. Patient takes medication with ease. Patient encouraged to make needs known. Normal [facility] 30on 01-23-2024 30 Normal [facility] Nursing Noteon 01-23-2024 Nursing Note Normal [facility] Nursing Note Patient is up and steady, seen in group room socializing. Pt is cooperative and med compliant. Pt denies SI/HI/AVH. Pt encouraged to notify staff for any questions and concerns. Normal [facility] Progress Noteon 01-23-2024 Progress Note Normal [facility] [id number] 01-22-2024 [id number] Normal [facility] 94on 01-22-2024 94 Normal [facility] COMPREHENSIVE METABOLIC PANE Arnulfo 01-22-2024 Albumin [Mass/Vol] 3.9 g/dL Normal 3.5-5.0 [facility] Comment on above: Performed By: #### L [id number] ####Philosophy Instructor: CECI DUPREE ([id number])[address] ALP [Catalytic activity/Vol] 77 U/L Normal 38-126 [facility] Comment on above: Performed By: #### L [id number] ####Philosophy Instructor: CECI DUPREE ([id number])[address] ALT [Catalytic activity/Vol] 75 U/L High 0-49 [facility] Comment on above: Performed By: #### L [id number] ####Philosophy Instructor: CECI DUPREE ([id number])[address] Anion gap [Moles/Vol] 5 mmol/L Normal 3-13 [facility] Comment on above: Performed By: #### L [id number] ####Philosophy Instructor: CECI DUPREE ([id number])[address] AST [Catalytic activity/Vol] 58 U/L High 15-46 [facility] Comment on above: Performed By: #### L [id number] ####Philosophy Instructor: CECI [id number])[facility])[address] [place] [address] Bilirubin [Mass/Vol] 0.7 mg/dL Normal 0.2-1.3 [facility] Comment on above: Performed By: #### L [id number] ####Philosophy Instructor: CECI DUPREE ([id number])[facility])[address] [place] [address] Calcium [Mass/Vol] 8.9 mg/dL Normal 8.4-10.4 [facility] Comment on above: Performed By: #### L [id number] ####Philosophy Instructor: CECI DUPREE ([id number])[facility])[address] [place] [address] Chloride [Moles/Vol] 96 mmol/L Low 98-107 [facility] Comment on above: Performed By: #### L [id number] ####Philosophy Instructor: CECI DUPREE ([id number])[facility])[address] [place] [address] CO2 [Moles/Vol] 29 mmol/L Normal 22-30 [facility] Comment on above: Performed By: #### L [id number] ####Philosophy Instructor: CECI DUPREE ([id number])[facility])[address] [place] [address] Creatinine [Mass/Vol] 0.61 mg/dL Low 0.66-1.25 [facility] Comment on above: Performed By: #### L [id number] ####Philosophy Instructor: CECI DUPREE ([id number])[facility])[address] [place] [address] GLOMERULAR FILTRATION RATE ML/MIN/1.73 SQ M.PREDICTED >90.0 Normal >60.0 [facility] Comment on above: Result Comment: Calc ulation based on the Chronic Kidney Disease Epidemiology Collaboration (CKD-EPI) equation refit without adjustment for race Performed By: #### L [id number] ####Philosophy Instructor: CECI DUPREE ([id number])[facility] [place] [address] Glucose [Mass/Vol] 98 mg/dL Normal 70-100 [facility] Comment on above: Performed By: #### L [id number] ####Philosophy Instructor: CECI DUPREE ([id number])[facility] ([facility])[address] [place] [address] Potassium [Moles/Vol] 4.0 mmol/L Normal 3.5-5.1 [facility] Comment on above: Performed By: #### L [id number] ####Philosophy Instructor: CECI DUPREE ([id number])[facility] ([facility])[address] [place] [address] Protein [Mass/Vol] 6.6 g/dL Normal 6.3-8.2 [facility] Comment on above: Performed By: #### L [id number] ####Philosophy Instructor: CECI DUPREE ([id number])[facility] ([facility])[address] [place] [address] Sodium [Moles/Vol] 130 mmol/L Low 135-145 [facility] Comment on above: Performed By: #### L [id number] ####Philosophy Instructor: CECI DUPREE ([id number])[facility] ([facility])[address] [place] [address] Urea nitrogen [Mass/Vol] 7 mg/dL Low 9-20 [facility] Comment on above: Performed By: #### L [id number] ####Philosophy Instructor: CECI DUPREE ([id number])[facility])[address] [place] [address] Comprehensive metabolic 1998 panelon 01-22-2024 Albumin [Mass/Vol] 3.9 g/dL 3.5 - 5.0 g/dL [facility] ALP [Catalytic activity/Vol] 77 U/L 38 - 126 U/L [facility] ALT [Catalytic activity/Vol] 75 U/L High 0 - 49 U/L [facility] Anion gap [Moles/Vol] 5 mmol/L 3 - 13 mmol/L [facility] AST [Catalytic activity/Vol] 58 U/L High 15 - 46 U/L [facility] Bilirubin [Mass/Vol] 0.7 mg/dL 0.2 - 1 .3 mg/dL [facility] Calcium [Mass/Vol] 8.9 mg/dL 8.4 - 10. 4 mg/dL [facility] Chloride [Moles/Vol] 96 mmol/L Low 98 - 10 7 mmol/L [facility] CO2 [Moles/Vol] 29 mmol/L 22 - 30 mmol/L [facility] Creatinine [Mass/Vol] 0.61 mg/dL Low 0.66 - 1.25 mg/dL [facility] GFR/1.73 sq M.predicted (S/P/Bld) [Vol rate/Area] - PINF [facility] Comment on above: Calculation based on the Chronic Kidney Disease Epidemiology Collaboration (CKD-EPI) equation refit without adjustment for race Glucose [Mass/Vol] 98 mg/dL 70 - 100 mg/dL [facility] Interpretation and review of laboratory results Abnormal [facility] Potassium [Moles/Vol] 4 mmol/L 3.5 - 5.1 mmol/L [facility] Protein [Mass/Vol] 6.6 g/dL 6.3 - 8.2 g/dL [facility] Sodium [Moles/Vol] 130 mmol/L Low 135 - 145 mmol/L [facility] Urea nitrogen [Mass/Vol] 7 mg/dL Low 9 - 20 mg/dL [facility] Nursing Noteon 01-22-2024 Nursing Note Normal [facility] Progress Noteon 01-22-2024 Progress Note Nutrition rescreen completed. Chart reviewed. Patient to be monitored and followed by the diet biosolids management technician. Lamar Smith, DT Normal [facility] Progress Note Normal [facility] 30on 01-21-2024 30 The patient is Moderately Stable - Low risk of patient condition declining or worsening The patient's goals for the shift include rest The clinical goals for the shift include comfort/safety [facility] [id number] 01-21-2024 [id number] [facility] Nursing Noteon 01-21-2024 Nursing Note Patient is up and steady, seen in group room. Pt is cooperative and med compliant. Pt is encouraged to notify staff for any questions and concerns. Normal [facility] Nursing Note Patient received PRN albuterol inhaler as per orders at 1112 for . Normal [facility] Nursing Note Patient received PRN respiratory TX from RT at 0915 with good results. 02 93 percent with no O2 Normal [facility] CBC W Auto Differential pane l (Bld)Ordered By: Jyotsna Peralta on 01-20-2024 Basophils (Bld) [#/Vol] 0 10*3/uL 0.0 - 0.2 10*3/uL [facility] Basophils/100 WBC (Bld) 0.5 % 0.0 - 2.0 % [facility] Eosinophils (Bld) [#/Vol] 0 10*3/uL 0.0 - 0.5 10*3/uL [facility] Eosinophils/100 WBC (Bld) 1 % 0.0 - 6.0 % [facility] Erythrocyte distribution width (RBC) [Ratio] 14.1 % 11.5 - 15.0 % [facility] Hematocrit (Bld) [Volume fraction] 46 % 40.0 - 52.0 % [facility] Hemoglobin (Bld) [Mass/Vol] 16.1 g/dL 13.0 - 18.0 g/dL [facility] Immature granulocytes (Bld) [#/Vol] 0 10*3/uL NINF - 0.1 10*3/uL [facility] Immature granulocytes/100 WBC (Bld) 0.5 % 0.0 - 2.0 % [facility] Interpretation and review of laboratory results Abnormal [facility] Lymphocytes (Bld) [#/Vol] 1.3 10*3/uL 1.0 - 4.3 10*3/uL [facility] Lymphocytes/100 WBC (Bld) 30.6 % 15.0 - 45.0 % [facility] MCH (RBC) [Entitic mass] 33 pg 26. 0 - 34.[address] [facility] MCHC (RBC) [Mass/Vol] 35 % 30.5 - 36.0 % [facility] MCV (RBC) [Entitic vol] 94.3 fL 77.0 - 99.[address] [facility] Monocytes (Bld) [#/Vol] 0.6 10*3/uL 0.0 - 0.9 10*3/uL [facility] Monocytes/100 WBC (Bld) 14.2 % High 5.0 - 13.0 % [facility] Neutrophils (Bld) [#/Vol] 2.2 10*3/uL 1.8 - 7.5 10*3/uL [facility] Neutrophils/100 WBC (Bld) 53.2 % 38.0 - 82.0 % [facility] Nucleated RBC/100 WBC (Bld) [Ratio] 0 % [facility] Platelet mean volume (Bld) [Entitic vol] 8.8 fL Low 9.0 - 12.[address] [facility] Platelets (Bld) [#/Vol] 156 10*3/uL 140 - 440 10*3/uL [facility] RBC (Bld) [#/Vol] 4.88 10*6/uL 4.40 - 5.9 0 10*6/uL [facility] WBC (Bld) [#/Vol] 4.2 10*3/uL 3.6 - 10.7 10*3/uL [facility] CBC WITH AUTO DIFFERENTIALon 01-20-2024 Basophils (Bld) [#/Vol] 0.0 10*3/uL Normal 0.0-0.2 [facility] Comment on above: Performed By: #### L [id number] ####Philosophy Instructor: REINIER ZHU ([id number])[facility] (SBAB)[address] Basophils/100 WBC (Bld) 0.5 % Normal 0.0-2.0 [facility] Comment on above: Performed By: #### L [id number] ####Philosophy Instructor: REINIER ZHU ([id number])[facility] ([facility])[address] [place] [address] [place] Eosinophils (Bld) [#/Vol] 0.0 10*3/uL Normal 0.0-0.5 [facility] Comment on above: Performed By: #### L [id number] ####Philosophy Instructor: REINIER ZHU ([id number])[facility] (SBAB)[address] [place] [address] [place] Eosinophils/100 WBC (Bld) 1.0 % Normal 0.0-6.0 [facility] Comment on above: Performed By: #### L [id number] ####Philosophy Instructor: REINIER ZHU ([id number])[facility] (SBHLAB)[address] Erythrocyte distribution width (RBC) [Ratio] 14.1 % Normal 11.5-15.0 [facility] Comment on above: Performed By: #### L [id number] ####Philosophy Instructor: REINIER ZHU ([id number])[facility] ([facility] Hematocrit (Bld) [Volume fraction] 46.0 % Normal 40.0-52.0 [facility] Comment on above: Performed By: #### L [id number] ####Philosophy Instructor: REINIER ZHU ([id number])[facility] ([facility])[address] [place] [address] Hemoglobin (Bld) [Mass/Vol] 16.1 g/dL Normal 13.0-18.0 [facility] Comment on above: Performed By: #### L [id number] ####Philosophy Instructor: REINIER ZHU ([id number])[facility] ([facility])[address] [place] [address] IMMATURE GRANS % 0.5 % Normal 0.0-2.0 [facility] Comment on above: Performed By: #### L [id number] ####Philosophy Instructor: REINIER ZHU ([id number])[facility] ([facility])[address] IMMATURE GRANS ABSOLUTE 0.0 10*3/uL Normal <0.1 [facility] Comment on above: Performed By: #### L [id number] ####Philosophy Instructor: REINIER ZHU ([id number])[facility] ([facility])[address] Lymphocytes (Bld) [#/Vol] 1.3 10*3/uL Normal 1.0-4.3 [facility] Comment on above: Performed By: #### L [id number] ####Philosophy Instructor: REINIER ZHU ([id number])[facility] (SBHLAB)[address] Lymphocytes/100 WBC (Bld) 30.6 % Normal 15.0-45.0 [facility] Comment on above: Performed By: #### L [id number] ####Philosophy Instructor: REINIER ZHU ([id number])[facility]ITAL[facility] (SBHLAB)[address] MCH (RBC) [Entitic mass] 33.0 pg Normal 26.0-34.0 [facility] Comment on above: Performed By: #### L [id number] ####Philosophy Instructor: REINIER ZHU ([id number])[facility]ITAL[facility] (SBHLAB)[address] [place] [address] MCHC 35.0 % Normal 30.5-36.0 [facility] Comment on above: Performed By: #### L [id number] ####Philosophy Instructor: REINIER ZHU ([id number])[facility]ITAL[facility] [place] (SBHLAB)[address] [place] [address] MCV (RBC) [Entitic vol] 94.3 fL Normal 77.0-99.0 [facility] Comment on above: Performed By: #### L [id number] ####Philosophy Instructor: REINIER ZHU ([id number])[facility]ITAL[facility] (SBHLAB)[address] [place] [address] Monocytes (Bld) [#/Vol] 0.6 10*3/uL Normal 0.0-0.9 [facility] Comment on above: Performed By: #### L [id number] ####Philosophy Instructor: REINIER ZHU ([id number])[facility]ITAL[facility]ENTER[facility] (SBHLAB)[address] Monocytes/100 WBC (Bld) 14.2 % High 5.0-13.0 [facility] Comment on above: Performed By: #### L [id number] ####Philosophy Instructor: REINIER ZHU ([id number])[facility] (SBHLAB)[address] NEUTROPHILS ABSOLUTE 2.2 10*3/uL Normal 1.8-7.5 [facility] Comment on above: Performed By: #### L [id number] ####Philosophy Instructor: REINIER ZHU ([id number])[facility] [place] (SBHLAB)[address] Neutrophils/100 WBC (Bld) 53.2 % Normal 38.0-82.0 [facility] Comment on above: Performed By: #### L [id number] ####Philosophy Instructor: REINIER ZHU ([id number])[facility] [place] (SBHLAB)[address] NRBC 0.0 /100 WBCs Normal 0.0-2.0 [facility] Comment on above: Performed By: #### L [id number] ####Philosophy Instructor: REINIER ZHU ([id number])[facility] [place] (SBHLAB)[address] Platelet mean volume (Bld) [Entitic vol] 8.8 fL Low 9.0-12.7 [facility] Comment on above: Performed By: #### L [id number] ####Philosophy Instructor: REINIER ZHU ([id number])[facility] [place] (SBHLAB)[address] [place] [address] [place] Platelets (Bld) [#/Vol] 156 10*3/uL Normal 140-440 [facility] Comment on above: Performed By: #### L [id number] ####Philosophy Instructor: REINIER ZHU ([id number])[facility] [place] (SBHLAB)[address] [place] [address] [place] RBC (Bld) [#/Vol] 4.88 10*6/uL Normal 4.40-5.90 [facility] Comment on above: Performed By: #### L [id number] ####Philosophy Instructor: REINIER ZHU ([id number])[facility]A [place] (SBHLAB)[address] WBC (Bld) [#/Vol] 4.2 10*3/uL Normal 3.6-10.7 [facility] Comment on above: Performed By: #### L [id number] ####Philosophy Instructor: REINIER ZHU ([id number])[facility]ITALA VIRAJGALLUP INDI[facility] MED[facility]ENTERN (SBHLAB)[address] COMPREHENSIVE METABOLIC PANE Arnulfo 01-20-2024 Albumin [Mass/Vol] 4.3 g/dL Normal 3.5-5.0 [facility] Comment on above: Performed By: #### L AB17, LAB46 ####Philosophy Instructor: REINIER ZHU ([id number])[facility]ITALCh[facility] [place] (SBHLAB)[address] ALP [Catalytic activity/Vol] 100 U/L Normal 38-126 [facility] Comment on above: Performed By: #### L AB17, LAB46 ####Philosophy Instructor: REINIER ZHU ([id number])[facility] VIRAJGALLUP [facility]DI[facility]ERN (SBHLAB)[address] ALT [Catalytic activity/Vol] 106 U/L High 0-49 [facility] Comment on above: Performed By: #### L AB17, LAB46 ####Philosophy Instructor: REINIER ZHU ([id number])[facility]ITALCh[facility] (SBHLAB)[address] Anion gap [Moles/Vol] 15 mmol/L High 3-13 [facility] Comment on above: Performed By: #### L AB17, LAB46 ####Philosophy Instructor: REINIER ZHU ([id number])[facility]A BARBGALLUP INDIAN MEDICAL CENTERN (SBHLAB)[address] AST [Catalytic activity/Vol] 102 U/L High 15-46 [facility] Comment on above: Performed By: #### L AB17, LAB46 ####Philosophy Instructor: REINIER ZHU ([id number])[facility] (SBHLAB)[address] Bilirubin [Mass/Vol] 0.5 mg/dL Normal 0.2-1.3 [facility] Comment on above: Performed By: #### L AB17, LAB46 ####Philosophy Instructor: REINIER ZHU ([id number])[facility] [place] (SBHLAB)[address] Calcium [Mass/Vol] 8.2 mg/dL Low 8.4-10.4 [facility] Comment on above: Performed By: #### L AB17, LAB46 ####Philosophy Instructor: REINIER ZHU ([id number])[facility] [place] (SBHLAB)[address] Chloride [Moles/Vol] 93 mmol/L Low 98-107 [facility] Comment on above: Performed By: #### L AB17, LAB46 ####Philosophy Instructor: REINIER ZHU ([id number])[facility] [place] (SBHLAB)[address] CO2 [Moles/Vol] 26 mmol/L Normal 22-30 [facility] Comment on above: Performed By: #### L AB17, LAB46 ####Philosophy Instructor: REINIER ZHU ([id number])[facility] [place] (SBHLAB)[address] Creatinine [Mass/Vol] 0.59 mg/dL Low 0.66-1.25 [facility] Comment on above: Performed By: #### L AB17, LAB46 ####Philosophy Instructor: REINIER ZHU ([id number])[facility] [place] (SBHLAB)[address] GLOMERULAR FILTRATION RATE ML/MIN/1.73 SQ M.PREDICTED >90.0 Normal >60.0 [facility] Comment on above: Result Comment: Calc ulation based on the Chronic Kidney Disease Epidemiology Collaboration (CKD-EPI) equation refit without adjustment for race Performed By: #### L AB17, LAB46 ####Philosophy Instructor: REINIER ZHU ([id number])[facility] [place] (SBHLAB)[address] Glucose [Mass/Vol] 174 mg/dL High 70-100 [facility] Comment on above: Performed By: #### L AB17, LAB46 ####Philosophy Instructor: REINIER ZHU ([id number])[facility] [place] (SBHLAB)[address] Potassium [Moles/Vol] 4.1 mmol/L Normal 3.5-5.1 [facility] Comment on above: Performed By: #### L AB17, LAB46 ####Philosophy Instructor: REINIER ZHU ([id number])[facility] [place] (SBHLAB)[address] Protein [Mass/Vol] 7.3 g/dL Normal 6.3-8.2 [facility] Comment on above: Performed By: #### L AB17, LAB46 ####Philosophy Instructor: REINIER ZHU ([id number])[facility]ITAL[facility] (SBHLAB)[address] [place] [address] [place] Sodium [Moles/Vol] 134 mmol/L Low 135-145 [facility] Comment on above: Performed By: #### L AB17, LAB46 ####Philosophy Instructor: REINIER ZHU ([id number])[facility] (SBHLAB)[address] Urea nitrogen [Mass/Vol] 7 mg/dL Low 9-20 [facility] Comment on above: Performed By: #### L AB17, LAB46 ####Philosophy Instructor: REINIER ZHU ([id number])[facility] (SBHLAB)[address] Comprehensive metabolic 1998 panelon 01-20-2024 Albumin [Mass/Vol] 4.3 g/dL 3.5 - 5.0 g/dL [facility] ALP [Catalytic activity/Vol] 100 U/L 38 - 126 U/L [facility] ALT [Catalytic activity/Vol] 106 U/L High 0 - 49 U/L [facility] Anion gap [Moles/Vol] 15 mmol/L High 3 - 13 mmol/L [facility] AST [Catalytic activity/Vol] 102 U/L High 15 - 46 U/L [facility] Bilirubin [Mass/Vol] 0.5 mg/dL 0.2 - 1 .3 mg/dL [facility] Calcium [Mass/Vol] 8.2 mg/dL Low 8.4 - 10. 4 mg/dL [facility] Chloride [Moles/Vol] 93 mmol/L Low 98 - 10 7 mmol/L [facility] CO2 [Moles/Vol] 26 mmol/L 22 - 30 mmol/L [facility] Creatinine [Mass/Vol] 0.59 mg/dL Low 0.66 - 1.25 mg/dL [facility] GFR/1.73 sq M.predicted (S/P/Bld) [Vol rate/Area] - PINF [facility] Comment on above: Calculation based on the Chronic Kidney Disease Epidemiology Collaboration (CKD-EPI) equation refit without adjustment for race Glucose [Mass/Vol] 174 mg/dL High 70 - 100 mg/dL [facility] Interpretation and review of laboratory results Abnormal [facility] Potassium [Moles/Vol] 4.1 mmol/L 3.5 - 5.1 mmol/L [facility] Protein [Mass/Vol] 7.3 g/dL 6.3 - 8.2 g/dL [facility] Sodium [Moles/Vol] 134 mmol/L Low 135 - 145 mmol/L [facility] Urea nitrogen [Mass/Vol] 7 mg/dL Low 9 - 20 mg/dL [facility] DRUGS OF ABUSEon 01-20-2024 AMPHETAMINE SCREEN Negative Normal [facility] Comment on above: Performed By: #### L [id number] ####Philosophy Instructor: REINIER ZHU ([id number])[facility] (SBHLAB)[address] [place] [address] BARBITURATES SCREEN Negative Normal [facility] Comment on above: Performed By: #### L [id number] ####Philosophy Instructor: REINIER ZHU ([id number])[facility] (SBHLAB)[address] BENZODIAZEPINE SCREEN Negative Normal [facility] Comment on above: Performed By: #### L [id number] ####Philosophy Instructor: REINIER ZHU ([id number])[facility] (SBHLAB)[address] COCAINE METAB. SCREEN Negative Normal [facility] Comment on above: Performed By: #### L [id number] ####Philosophy Instructor: REINIER ZHU ([id number])[facility] [place] (SB[facility])[address] METHADONE SCREEN Negative Normal [facility] Comment on above: Performed By: #### L [id number] ####Philosophy Instructor: REINIER ZHU ([id number])[facility] (SBHLAB)[address] OPIATES SCREEN Negative Normal [facility] Comment on above: Performed By: #### L [id number] ####Philosophy Instructor: REINIER ZHU ([id number])[facility] (SBHLAB)[address] OXYCODONE SCREEN Negative Normal [facility] Comment on above: Performed By: #### L [id number] ####Philosophy Instructor: REINIER ZHU ([id number])[facility] [place] (SBHLAB)[address] PHENCYCLIDINE SCREEN Negative Normal [facility] Comment on above: Result [...] under separate order. Performed By: #### L [id number] ####Philosophy Instructor: REINIER ZHU ([id number])[facility] ([facility])[address] [place] [address] ECG 12-LEADon 01-20-2024 ECG 12-LEAD IMPRESSION: Sinus rhythm Consider anterior infarct Electronically Signed On 01-20-2024 19:55:10 EDT by Triston Abraham [facility] ED Nursing Noteon 01-20-2024 ED Nursing Note Called in report to TISH Acevedo at [facility]. Jacqueline Richardson RN 01/20/242202 Normal [facility] ED Nursing Note Pt presents seeking alcohol detox. Last drink was right before leaving house. Drinks about 6-8 beers/day. Has been through detox in past. Has never had withdrawal seizures. Currently having anxiety, vomiting, palpitations Normal [facility] ED Provider Noteon ED Provider Note Normal [facility] ETHANOLon 01-20-2024 ETHANOL IN SER/PLAS 0.435 g/dL Critically high 0.000-0.010 [facility] Comment on above: Result Comment: GEOR[place]IA Lagunas COMMENTS:NOTE: This result is for medical treatment only. Analysis performed using non-forensic procedures. Performed By: #### L AB17, LAB46 ####Philosophy Instructor: REINIER ZHU ([id number])[facility] ([facility])[address] [place] [address] Ethanol (Bld) [Mass/Vol]Orde red By: Shellie Morel on 01-20-2024 Ethanol [Mass/Vol] 0.435 g/dL Critically high 0.000 - 0.010 g/dL [facility] Interpretation and review of laboratory results Abnormal [facility] Laboratory - Drug toxicology Ordered By: Nanette Elias on 01-20-2024 Amphetamines Screen method >1000 ng/mL Ql (U) Negative [facility] Barbiturates Screen method >200 ng/mL Ql (U) Negative [facility] Benzod[facility]ines Ql (U) Negative [facility] Methadone Screen Ql (U) Negative [facility] Opiates Screen Ql (U) Negative [facility] oxyCODONE Ql (U) Negative [facility] Phencyclidine Ql (U) Negative [facility] Laboratory - Microbiology an d Antimicrobial susceptibilityon 01-20-2024 SARS-CoV-2 (COVID-19) Ag IA.rapid Ql (Resp) Negative Negative [facility] Comment on above: A negative result do es not rule out the possibility of SARS-CoV-2 infection. NAAT-based methods should be considered for symptomatic patients presenting greater than seven days after onset of symptoms. Method: Lateral flow immunoassay. Fact sheets for healthcare providers and patients can be found at the following sites: https://www.Vaxxas.gov/media/753416/download https://www.Vaxxas.gov/media/896073/download No Panel Informationon 01-19 P [place] [address] [facility] MI Interval [address] [facility] QRS [place] [address] [facility] QRSD Interval 97 ms [facility] QT Interval [address] [facility] QTC Interval [address] [facility] T Wave [place] [address] [facility] Sinus rhythm Consider anterior infarct Electronically Signed On 01-20-2024 19:55:10 EDT by Triston Abraham CV Triston Lehman MD - 01/20/2024 IMPRESSION: Sinus rhythm Consider anterior infarct Electronically Signed On 01-20-2024 19:55:10 EDT by Triston Abraham [facility] No Panel InformationOrdered By: Nanette Elias on 01-20-2024 COCAINE METAB. SCREEN Negative [facility] The expected value f or [...] is needed, request confirmation under separate order. [facility] Nursing Noteon 01-20-2024 Nursing Note Normal [facility] SARS-COV-2 ANTIGENon 024 SARS-COV-2 ANTIGEN Normal [facility] Comment on above: Performed By: #### L [id number] ####Philosophy Instructor: REINIER ZHU ([id number])[facility]IR[facility] (SBHLAB)[address] [place] [address] SARS-CoV-2 (COVID-19) Ag IA. rapid Ql (Resp)on 01-20-2024 Interpretation and review of laboratory results Normal [facility] Vital signson 01-20-2024 Heart rate 95 /[facility] bpm [facility] Pt did not show for IOP assessment on this date. [facility] 36on 12-04-2023 36 For CAROL Normal [facility] 36 Normal [facility] 36 Normal [facility] 36on 12-03-2023 36 Normal [facility] IDNon 11-30-2023 IDN Normal [facility] IDN The patient is Moderately Stable - Low risk of patient condition declining or worsening The patient's goals for the shift include Safety The clinical goals for the shift include Safety Normal [facility] Nursing Noteon 11-30-2023 Nursing Note Normal [facility] CARECOORDon 11-29-2023 CAR[place]OORD S/W, IOP IOP counselor did come up to see patient to discuss treatment program. Patient was scheduled for an appointment for 12/10 at 10A. Normal [facility] CARECOORD Normal [facility] CARECOORD Normal [facility] IDNon 11-29-2023 IDN The patient is Moderately Stable - Low risk of patient condition declining or worsening The patient's goals for the shift include Safety and to feel better. The clinical goals for the shift include safety Normal [facility] Progress Noteon 11-29-2023 Progress Note Normal [facility] Progress Note Nutrition rescreen completed. Chart reviewed. Patient to be monitored and followed by the diet biosolids management technician. Normal [facility] Progress Note Normal [facility] BASIC METABOLIC PANELon 10-31 Anion gap [Moles/Vol] 9 mmol/L Normal 3-13 [facility] Comment on above: Performed By: #### L AB15 ####Philosophy Instructor: REINIER ZHU ([id number])[facility] [place] (SB[facility])[address] Calcium [Mass/Vol] 8.4 mg/dL Normal 8.4-10.4 [facility] Comment on above: Performed By: #### L AB15 ####Philosophy Instructor: REINIER ZHU ([phone])[facility] [place] (SBHLAB)[address] Chloride [Moles/Vol] 99 mmol/L Normal 98-107 [facility] Comment on above: Performed By: #### L AB15 ####Philosophy Instructor: REINIER ZHU ([phone])[facility] [place] (SB[facility])[address] CO2 [Moles/Vol] 27 mmol/L Normal 22-30 [facility] Comment on above: Performed By: #### L AB15 ####Philosophy Instructor: REINIER ZHU ([phone])[facility] [place] (SBHLAB)[address] Creatinine [Mass/Vol] 0.62 mg/dL Low 0.66-1.25 [facility] Comment on above: Performed By: #### L AB15 ####Philosophy Instructor: REINIER ZHU ([id number])[facility] [place] (SBHLAB)[address] GLOMERULAR FILTRATION RATE ML/MIN/1.73 SQ M.PREDICTED >90.0 Normal >60.0 [facility] Comment on above: Result Comment: Calc ulation based on the Chronic Kidney Disease Epidemiology Collaboration (CKD-EPI) equation refit without adjustment for race Performed By: #### L AB15 ####Philosophy Instructor: REINIER ZHU ([id number])[facility]OSPITALCh[facility] (SBHLAB)[address] Glucose [Mass/Vol] 108 mg/dL High 70-100 [facility] Comment on above: Performed By: #### L AB15 ####Philosophy Instructor: REINIER ZHU ([id number])[facility]ITALCh[facility] VIRAJGHADA (SBHLAB)[address] Potassium [Moles/Vol] 4.0 mmol/L Normal 3.5-5.1 [facility] Comment on above: Performed By: #### L AB15 ####Philosophy Instructor: REINIER ZHU ([phone])[facility]ITAL[facility] ([facility])[address] Sodium [Moles/Vol] 135 mmol/L Normal 135-145 [facility] Comment on above: Performed By: #### L AB15 ####Philosophy Instructor: REINIER ZHU ([id number])[facility]ITALCh[facility]ENTERAn[facility] ([facility])[address] Urea nitrogen [Mass/Vol] 7 mg/dL Low 9-20 [facility] Comment on above: Performed By: #### L AB15 ####Philosophy Instructor: REINIER ZHU ([id number])[facility] HOSPITALAnum (HLAB)[address] [place] [address] Basic metabolic 1998 panelon 11-28-2023 Anion gap [Moles/Vol] 9 mmol/L 3 - 13 mmol/L [facility] Calcium [Mass/Vol] 8.4 mg/dL 8.4 - 10. 4 mg/dL [facility] Chloride [Moles/Vol] 99 mmol/L 98 - 10 7 mmol/L [facility] CO2 [Moles/Vol] 27 mmol/L 22 - 30 mmol/L [facility] Creatinine [Mass/Vol] 0.62 mg/dL Low 0.66 - 1.25 mg/dL [facility] GFR/1.73 sq M.predicted (S/P/Bld) [Vol rate/Area] - PINF [facility] Comment on above: Calculation based on the Chronic Kidney Disease Epidemiology Collaboration (CKD-EPI) equation refit without adjustment for race Glucose [Mass/Vol] 108 mg/dL High 70 - 100 mg/dL [facility] Interpretation and review of laboratory results Abnormal [facility] Potassium [Moles/Vol] 4.0 mmol/L 3.5 - 5.1 mmol/L [facility] Sodium [Moles/Vol] 135 mmol/L 135 - 145 mmol/L [facility] Urea nitrogen [Mass/Vol] 7 mg/dL Low 9 - 20 mg/dL [facility] CBC W Auto Differential pane l (Bld)on 11-28-2023 Basophils (Bld) [#/Vol] 0.0 10*3/uL 0.0 - 0.2 10*3/uL [facility] Basophils/100 WBC (Bld) 0.4 % 0.0 - 2.0 % [facility] Eosinophils (Bld) [#/Vol] 0.1 10*3/uL 0.0 - 0.5 10*3/uL [facility] Eosinophils/100 WBC (Bld) 1.4 % 0.0 - 6.0 % [facility] Erythrocyte distribution width (RBC) [Ratio] 14.4 % 11.5 - 15.0 % [facility] Hematocrit (Bld) [Volume fraction] 40.9 % 40.0 - 52.0 % [facility] Hemoglobin (Bld) [Mass/Vol] 13.7 g/dL 13.0 - 18.0 g/dL [facility] Immature granulocytes (Bld) [#/Vol] 0.0 10*3/uL NINF - 0.1 10*3/uL [facility] Immature granulocytes/100 WBC (Bld) 0.2 % 0.0 - 2.0 % [facility] Interpretation and review of laboratory results Abnormal [facility] Lymphocytes (Bld) [#/Vol] 1.4 10*3/uL 1.0 - 4.3 10*3/uL [facility] Lymphocytes/100 WBC (Bld) 28.5 % 15.0 - 45.0 % [facility] MCH (RBC) [Entitic mass] 31.6 pg 26. 0 - 34.[address] [facility] MCHC (RBC) [Mass/Vol] 33.5 % 30.5 - 36.0 % [facility] MCV (RBC) [Entitic vol] 94.2 fL 77.0 - 99.[address] [facility] Monocytes (Bld) [#/Vol] 0.7 10*3/uL 0.0 - 0.9 10*3/uL [facility] Monocytes/100 WBC (Bld) 14.3 % High 5.0 - 13.0 % [facility] Neutrophils (Bld) [#/Vol] 2.7 10*3/uL 1.8 - 7.5 10*3/uL [facility] Neutrophils/100 WBC (Bld) 55.2 % 38.0 - 82.0 % [facility] Nucleated RBC/100 WBC (Bld) [Ratio] 0.0 % [facility] Platelet mean volume (Bld) [Entitic vol] 8.5 fL Low 9.0 - 12.[address] [facility] Platelets (Bld) [#/Vol] 210 10*3/uL 140 - 440 10*3/uL [facility] RBC (Bld) [#/Vol] 4.34 10*6/uL Low 4.40 - 5.9 0 10*6/uL [facility] WBC (Bld) [#/Vol] 4.9 10*3/uL 3.6 - 10.7 10*3/uL [facility] CBC WITH AUTO DIFFERENTIALon 11-28-2023 Basophils (Bld) [#/Vol] 0.0 10*3/uL Normal 0.0-0.2 [facility] Comment on above: Performed By: #### L [id number] ####Philosophy Instructor: REINIER ZHU ([id number])[facility] (SBHLAB)[address] Basophils/100 WBC (Bld) 0.4 % Normal 0.0-2.0 [facility] Comment on above: Performed By: #### L [id number] ####Philosophy Instructor: REINIER ZHU ([id number])[facility] (SBHLAB)[address] Eosinophils (Bld) [#/Vol] 0.1 10*3/uL Normal 0.0-0.5 [facility] Comment on above: Performed By: #### L [id number] ####Philosophy Instructor: REINIER ZHU ([id number])[facility] HOS[facility]ITALA [facility]BGALLUP INDIAN MED[facility]ERN (SBHLAB)[address] Eosinophils/100 WBC (Bld) 1.4 % Normal 0.0-6.0 [facility] Comment on above: Performed By: #### L [id number] ####Philosophy Instructor: REINIER ZHU ([id number])[facility] (SBAB)[address] Erythrocyte distribution width (RBC) [Ratio] 14.4 % Normal 11.5-15.0 [facility] Comment on above: Performed By: #### L [id number] ####Philosophy Instructor: REINIER ZHU ([id number])[facility] (SBAB)[address] Hematocrit (Bld) [Volume fraction] 40.9 % Normal 40.0-52.0 [facility] Comment on above: Performed By: #### L [id number] ####Philosophy Instructor: REINIER ZHU ([id number])[facility] (SBAB)[address] Hemoglobin (Bld) [Mass/Vol] 13.7 g/dL Normal 13.0-18.0 [facility] Comment on above: Performed By: #### L [id number] ####Philosophy Instructor: REINIER ZHU ([id number])[facility] (SBHLAB)[address] IMMATURE GRANS % 0.2 % Normal 0.0-2.0 [facility] Comment on above: Performed By: #### L [id number] ####Philosophy Instructor: REINIER ZHU ([id number])[facility] (SBAB)[address] IMMATURE GRANS ABSOLUTE 0.0 10*3/uL Normal <0.1 [facility] Comment on above: Performed By: #### L [id number] ####Philosophy Instructor: REINIER ZHU ([id number])[facility]ITAL[facility] [place] (SBHLAB)[address] Lymphocytes (Bld) [#/Vol] 1.4 10*3/uL Normal 1.0-4.3 [facility] Comment on above: Performed By: #### L [id number] ####Philosophy Instructor: REINIER ZHU ([id number])[facility] [place] (SBHLAB)[address] Lymphocytes/100 WBC (Bld) 28.5 % Normal 15.0-45.0 [facility] Comment on above: Performed By: #### L [id number] ####Philosophy Instructor: REINIER ZHU ([id number])[facility] [place] (SBHLAB)[address] MCH (RBC) [Entitic mass] 31.6 pg Normal 26.0-34.0 [facility] Comment on above: Performed By: #### L [id number] ####Philosophy Instructor: REINIER ZHU ([id number])[facility] [place] (SBHLAB)[address] MCHC 33.5 % Normal 30.5-36.0 [facility] Comment on above: Performed By: #### L [id number] ####Philosophy Instructor: REINIER ZHU ([id number])[facility] [place] (SBHLAB)[address] MCV (RBC) [Entitic vol] 94.2 fL Normal 77.0-99.0 [facility] Comment on above: Performed By: #### L [id number] ####Philosophy Instructor: REINIER ZHU ([id number])[facility] [place] (SBHLAB)[address] [place] [address] [place] Monocytes (Bld) [#/Vol] 0.7 10*3/uL Normal 0.0-0.9 [facility] Comment on above: Performed By: #### L [id number] ####Philosophy Instructor: REINIER ZHU ([id number])[facility] [place] (SBHLAB)[address] Monocytes/100 WBC (Bld) 14.3 % High 5.0-13.0 [facility] Comment on above: Performed By: #### L [id number] ####Philosophy Instructor: REINIER ZHU ([id number])[facility] [place] (SBHLAB)[address] NEUTROPHILS ABSOLUTE 2.7 10*3/uL Normal 1.8-7.5 [facility] Comment on above: Performed By: #### L [id number] ####Philosophy Instructor: REINIER ZHU ([id number])[facility] [place] (SBHLAB)[address] Neutrophils/100 WBC (Bld) 55.2 % Normal 38.0-82.0 [facility] Comment on above: Performed By: #### L [id number] ####Philosophy Instructor: REINIER ZHU ([id number])[facility] [place] (SBHLAB)[address] NRBC 0.0 /100 WBCs Normal 0.0-2.0 [facility] Comment on above: Performed By: #### L [id number] ####Philosophy Instructor: REINIER ZHU ([id number])[facility] [place] (SBHLAB)[address] Platelet mean volume (Bld) [Entitic vol] 8.5 fL Low 9.0-12.7 [facility] Comment on above: Performed By: #### L [id number] ####Philosophy Instructor: REINIER ZHU ([id number])[facility] [place] (SBHLAB)[address] [place] [address] [place] Platelets (Bld) [#/Vol] 210 10*3/uL Normal 140-440 [facility] Comment on above: Performed By: #### L [id number] ####Philosophy Instructor: REINIERJA ZHU ([id number])[facility]ITALCh[facility] [place] (SBHLAB)[address] RBC (Bld) [#/Vol] 4.34 10*6/uL Low 4.40-5.90 [facility] Comment on above: Performed By: #### L [id number] ####Philosophy Instructor: REINIER MARKO ([id number])[facility]ITALCh[facility]ALLUP [facility]ERN (SBHLAB)[address] WBC (Bld) [#/Vol] 4.9 10*3/uL Normal 3.6-10.7 [facility] Comment on above: Performed By: #### L [id number] ####Philosophy Instructor: REINIER MORINROGER ([id number])[facility]AJ[facility]CS[facility] (SBHLAB)[address] [place] [address] Consulton 11-28-2023 Consult Normal [facility] ECG 12-LEADon 11-28-2023 ECG 12-LEAD IMPRESSION: Sinus tachycardia Probable left atrial enlargement RSR' in V1 or V2, right VCD or RVH Borderline T abnormalities, anterior leads No significant changes compared to 07/27/2023 Electronically Signed On 11-28-2023 04:56:24 EDT by Val Torres [facility] ED Nursing Noteon 11-28-2023 ED Nursing Note Unit made aware of impending patient transport to the unit via broadcast. Judy Higgins RN 11/28/23 1650 [facility] ED Nursing Note O2 turned up to 4L N C due to low saturation in 70's while sleeping Gris Dillon RN 11/28/23 1500 Normal [facility] ED Nursing Note 2L NC applied due to O2 sat in 80's while sleeping Gris Dillon RN 11/28/23 1425 [facility] No Panel Informationon 11-27 P [place] [address] [facility] MI Interval [address] [facility] QRS [place] [address] [facility]val [address] [facility] QTC Interval [address] [facility] T Wave [place] [address] [facility] Sinus tachycardia Probable left atrial enlargement [...] On 11-28-2023 04:56:24 EDT by Val Torres [facility] Nursing Noteon 11-28-2023 Nursing Note Normal [facility] Vital signson 11-28-2023 Heart rate 113 /min bpm [facility] CBC (HEMOGRAM)on 11-27-2023 Erythrocyte distribution width (RBC) [Ratio] 14.5 % Normal 11.5-15.0 [facility] Comment on above: Performed By: #### L [id number] ####Philosophy Instructor: REINIER ZHU ([id number])[facility] ([facility])[address] [place] [address] Hematocrit (Bld) [Volume fraction] 44.2 % Normal 40.0-52.0 [facility] Comment on above: Performed By: #### L [id number] ####Philosophy Instructor: REINIER ZHU ([phone])[facility] ([facility])[address] [place] [address] Hemoglobin (Bld) [Mass/Vol] 15.1 g/dL Normal 13.0-18.0 [facility] Comment on above: Performed By: #### L [id number] ####Philosophy Instructor: REINIER ZHU ([id number])[facility] ([facility])[address] [place] [address] MCH (RBC) [Entitic mass] 32.0 pg Normal 26.0-34.0 [facility] Comment on above: Performed By: #### L [id number] ####Philosophy Instructor: REINIER ZHU ([id number])[facility]ITALCh[facility] [place] (SBHLAB)[address] MCHC 34.2 % Normal 30.5-36.0 [facility] Comment on above: Performed By: #### L [id number] ####Philosophy Instructor: REINIER MORINROGER ([id number])[facility]ITALCh[facility] CALIYAZN (SBHLAB)[address] MCV (RBC) [Entitic vol] 93.6 fL Normal 77.0-99.0 [facility] Comment on above: Performed By: #### L [id number] ####Philosophy Instructor: REINIER ZHU ([id number])[facility]ITALCh[facility] [place] (SBHLAB)[address] Platelet mean volume (Bld) [Entitic vol] 8.4 fL Low 9.0-12.7 [facility] Comment on above: Performed By: #### L [id number] ####Philosophy Instructor: REINIER ZHU ([id number])[facility]ITAL[facility] [place] (SBHLAB)[address] Platelets (Bld) [#/Vol] 248 10*3/uL Normal 140-440 [facility] Comment on above: Performed By: #### L [id number] ####Philosophy Instructor: REINIER ZHU ([id number])[facility]ITAL[facility] [place] (SBHLAB)[address] RBC (Bld) [#/Vol] 4.72 10*6/uL Normal 4.40-5.90 [facility] Comment on above: Performed By: #### L [id number] ####Philosophy Instructor: REINIER ZHU ([id number])[facility]ITALCh[facility] [place] (SBHLAB)[address] [place] [address] [place] WBC (Bld) [#/Vol] 6.0 10*3/uL Normal 3.6-10.7 [facility] Comment on above: Performed By: #### L [id number] ####Philosophy Instructor: REINIER ZHU ([id number])[facility] VIRAJGHADA (SBHLAB)[address] CBC panel Auto (Bld)on 11-26 Erythrocyte distribution width (RBC) [Ratio] 14.5 % 11.5 - 15.0 % [facility] Hematocrit (Bld) [Volume fraction] 44.2 % 40.0 - 52.0 % [facility] Hemoglobin (Bld) [Mass/Vol] 15.1 g/dL 13.0 - 18.0 g/dL [facility] Interpretation and review of laboratory results Abnormal [facility] MCH (RBC) [Entitic mass] 32.0 pg 26. 0 - 34.[address] [facility] MCHC (RBC) [Mass/Vol] 34.2 % 30.5 - 36.0 % [facility] MCV (RBC) [Entitic vol] 93.6 fL 77.0 - 99.[address] [facility] Platelet mean volume (Bld) [Entitic vol] 8.4 fL Low 9.0 - 12.[address] [facility] Platelets (Bld) [#/Vol] 248 10*3/uL 140 - 440 10*3/uL [facility] RBC (Bld) [#/Vol] 4.72 10*6/uL 4.40 - 5.9 0 10*6/uL [facility] WBC (Bld) [#/Vol] 6.0 10*3/uL 3.6 - 10.7 10*3/uL [facility] COMPREHENSIVE METABOLIC PANE Arnulfo 11-27-2023 Albumin [Mass/Vol] 4.3 g/dL Normal 3.5-5.0 [facility] Comment on above: Performed By: #### L AB46, [id number], LAB17 ####Philosophy Instructor: REINIER ZHU ([id number])[facility] (SBHLAB)[address] ALP [Catalytic activity/Vol] 99 U/L Normal 38-126 [facility] Comment on above: Performed By: #### L AB46, [id number], LAB17 ####Philosophy Instructor: REINIER ZHU ([id number])[facility] [place] (SBHLAB)[address] ALT [Catalytic activity/Vol] 27 U/L Normal 0-49 [facility] Comment on above: Performed By: #### L AB46, [id number], LAB17 ####Philosophy Instructor: REINIER ZHU ([id number])[facility] [place] (SBHLAB)[address] Anion gap [Moles/Vol] 11 mmol/L Normal 3-13 [facility] Comment on above: Performed By: #### L AB46, [id number], LAB17 ####Philosophy Instructor: REINIER ZHU ([id number])[facility]ITALA [facility] (SBHLAB)[address] AST [Catalytic activity/Vol] 42 U/L Normal 15-46 [facility] Comment on above: Performed By: #### L AB46, [id number], LAB17 ####Philosophy Instructor: REINIER ZHU ([id number])[facility] [place] (SBHLAB)[address] Bilirubin [Mass/Vol] 0.4 mg/dL Normal 0.2-1.3 [facility] Comment on above: Performed By: #### L AB46, [id number], LAB17 ####Philosophy Instructor: REINIER ZHU ([id number])[facility] [place] (SBHLAB)[address] Calcium [Mass/Vol] 8.7 mg/dL Normal 8.4-10.4 [facility] Comment on above: Performed By: #### L AB46, [id number], LAB17 ####Philosophy Instructor: REINIER ZHU ([id number])[facility] [place] (SBHLAB)[address] [place] [address] [place] Chloride [Moles/Vol] 101 mmol/L Normal 98-107 [facility] Comment on above: Performed By: #### L AB46, [id number], LAB17 ####Philosophy Instructor: REINIER ZHU ([id number])[facility] (SBHLAB)[address] CO2 [Moles/Vol] 27 mmol/L Normal 22-30 [facility] Comment on above: Performed By: #### L AB46, UVS301, LAB17 ####Philosophy Instructor: REINIER ZHU ([id number])[facility] (SBHLAB)[address] Creatinine [Mass/Vol] 0.64 mg/dL Low 0.66-1.25 [facility] Comment on above: Performed By: #### L AB46, [id number], LAB17 ####Philosophy Instructor: REINIER ZHU ([id number])[facility] (SBHLAB)[address] GLOMERULAR FILTRATION RATE ML/MIN/1.73 SQ M.PREDICTED >90.0 Normal >60.0 [facility] Comment on above: Result Comment: Calc ulation based on the Chronic Kidney Disease Epidemiology Collaboration (CKD-EPI) equation refit without adjustment for race Performed By: #### L AB46, [id number], LAB17 ####Philosophy Instructor: REINIER ZHU ([id number])[facility] (SBHLAB)[address] Glucose [Mass/Vol] 97 mg/dL Normal 70-100 [facility] Comment on above: Performed By: #### L AB46, [id number], LAB17 ####Philosophy Instructor: REINIER ZHU ([id number])[facility] (SBHLAB)[address] Potassium [Moles/Vol] 4.2 mmol/L Normal 3.5-5.1 [facility] Comment on above: Performed By: #### L AB46, [id number], LAB17 ####Philosophy Instructor: REINIER ZHU ([id number])[facility] (SBHLAB)[address] Protein [Mass/Vol] 7.3 g/dL Normal 6.3-8.2 [facility] Comment on above: Performed By: #### L AB46, [id number], LAB17 ####Philosophy Instructor: REINIER ZHU ([id number])[facility] [place] (SBHLAB)[address] Sodium [Moles/Vol] 139 mmol/L Normal 135-145 [facility] Comment on above: Performed By: #### L AB46, [id number], LAB17 ####Philosophy Instructor: REINIER ZHU ([id number])[facility] [place] (SBHLAB)[address] Urea nitrogen [Mass/Vol] 7 mg/dL Low 9-20 [facility] Comment on above: Performed By: #### L AB46, [id number], LAB17 ####Philosophy Instructor: REINIER ZHU ([id number])[facility] (SBHLAB)[address] Comprehensive metabolic 1998 panelon 11-27-2023 Albumin [Mass/Vol] 4.3 g/dL 3.5 - 5.0 g/dL [facility] ALP [Catalytic activity/Vol] 99 U/L 38 - 126 U/L [facility] ALT [Catalytic activity/Vol] 27 U/L 0 - 49 U/L [facility] Anion gap [Moles/Vol] 11 mmol/L 3 - 13 mmol/L [facility] AST [Catalytic activity/Vol] 42 U/L 15 - 46 U/L [facility] Bilirubin [Mass/Vol] 0.4 mg/dL 0.2 - 1 .3 mg/dL [facility] Calcium [Mass/Vol] 8.7 mg/dL 8.4 - 10. 4 mg/dL [facility] Chloride [Moles/Vol] 101 mmol/L 98 - 10 7 mmol/L [facility] CO2 [Moles/Vol] 27 mmol/L 22 - 30 mmol/L [facility] Creatinine [Mass/Vol] 0.64 mg/dL Low 0.66 - 1.25 mg/dL [facility] GFR/1.73 sq M.predicted (S/P/Bld) [Vol rate/Area] - PINF [facility] Comment on above: Calculation based on the Chronic Kidney Disease Epidemiology Collaboration (CKD-EPI) equation refit without adjustment for race Glucose [Mass/Vol] 97 mg/dL 70 - 100 mg/dL [facility] Potassium [Moles/Vol] 4.2 mmol/L 3.5 - 5.1 mmol/L [facility] Protein [Mass/Vol] 7.3 g/dL 6.3 - 8.2 g/dL [facility] Sodium [Moles/Vol] 139 mmol/L 135 - 145 mmol/L [facility] Urea nitrogen [Mass/Vol] 7 mg/dL Low 9 - 20 mg/dL [facility] DRUGS OF ABUSEon 11-27-2023 AMPHETAMINE SCREEN Negative Normal [facility] Comment on above: Performed By: #### L [id number] ####Philosophy Instructor: REINIER ZHU ([id number])[facility] ([facility])[address] [place] [address] BARBITURATES SCREEN Negative Normal [facility] Comment on above: Performed By: #### L [id number] ####Philosophy Instructor: REINIER ZHU ([id number])[facility] ([facility])[address] [place] [address] BENZODIAZEPINE SCREEN Negative Normal [facility] Comment on above: Performed By: #### L [id number] ####Philosophy Instructor: REINIER ZHU ([id number])[facility] ([facility])[address] [place] [address] COCAINE METAB. SCREEN Negative Normal [facility] Comment on above: Performed By: #### L [id number] ####Philosophy Instructor: REINIER ZHU ([id number])[facility] ([facility])[address] [place] [address] METHADONE SCREEN Negative Normal [facility] Comment on above: Performed By: #### L [id number] ####Philosophy Instructor: REINIER ZHU ([id number])[facility] [place] (SBHLAB)[address] OPIATES SCREEN Negative Normal [facility] Comment on above: Performed By: #### L [id number] ####Philosophy Instructor: REINIER ZHU ([id number])[facility]ALL[facility] (SBHLAB)[address] OXYCODONE SCREEN Negative Normal [facility] Comment on above: Performed By: #### L [id number] ####Philosophy Instructor: REINIER ZHU ([id number])[facility]BT[facility] (SBHLAB)[address] PHENCYCLIDINE SCREEN Negative Normal [facility] Comment on above: Result Comment: [place] R [...] under separate order. Performed By: #### L [id number] ####Philosophy Instructor: REINIER ZHU ([id number])[facility] (SBHLAB)[address] ED Nursing Noteon 11-27-2023 ED Nursing Note Normal [facility] ED Nursing Note Detox rules read and signed by patient. Witnessed by this RN. Larry Avila RN 11/27/23 [id number] Normal [facility] ED Provider Noteon ED Provider Note Normal [facility] ETHANOLon 11-27-2023 ETHANOL IN SER/PLAS 0.297 g/dL High 0.000-0.010 [facility] Comment on above: Result Comment: ORDE R COMMENTS:NOTE: This result is for medical treatment only. Analysis performed using non-forensic procedures. Performed By: #### L [id number], [id number], [id number] ####Philosophy Instructor: REINIER ZHU ([phone])[facility] ([facility])[address] Ethanol (Bld) [Mass/Vol]on 0 11-27-2023 Ethanol [Mass/Vol] 0.297 g/dL High 0.000 - 0.010 g/dL [facility] - Chemistry and C hemistry - challengeon 11-27-2023 Magnesium [Mass/Vol] 2.0 mg/dL 1.6 - 2 .3 mg/dL [facility] - Drug toxicology Ordered By: Mitul Olson on 11-27-2023 Amphetamines Screen method >1000 ng/mL Ql (U) Negative [facility] Barbiturates Screen method >200 ng/mL Ql (U) [facility] Benzod[facility]ines Ql (U) Negative [facility] Methadone Screen Ql (U) Negative [facility] Opiates Screen Ql (U) Negative [facility] oxyCODONE Ql (U) Negative [facility] alth Phencyclidine Ql (U) Negative [facility] - Microbiology an d Antimicrobial susceptibilityOrdered By: Maite Fleming on 11-27-2023 SARS-CoV-2 (COVID-19) Ag IA.rapid Ql (Resp) Negative Negative [facility] Comment on above: A negative result do es not rule out the possibility of SARS-CoV-2 infection. NAAT-based methods should be considered for symptomatic patients presenting greater than seven days after onset of symptoms. Method: Lateral flow immunoassay. Fact sheets for healthcare providers and patients can be found at the following sites: https://www.fda.gov/media/291690/download https://www.fda.gov/media/561592/download MAGNESIUMon 11-27-2023 Magnesium [Mass/Vol] 2.0 mg/dL Normal 1.6-2.3 [facility] Comment on above: Performed By: #### L [id number], [id number], [id number] ####Philosophy Instructor: REINIER ZHU ([id number])[facility] ([facility] Magnesium [Mass/Vol]on 11-26 Interpretation and review of laboratory results Normal [facility] No Panel Informationon 11-26 Interpretation and review of laboratory results Abnormal [facility] No Panel InformationOrdered By: Mitul Olson on 11-27-2023 COCAINE METAB. SCREEN Negative [facility] The expected value f or [...] is needed, request confirmation under separate order. [facility] SARS-COV-2 ANTIGENon 024 SARS-COV-2 ANTIGEN Normal [facility] Comment on above: Performed By: #### L [id number] ####Philosophy Instructor: REINIER ZHU ([id number])[facility]ITAL[facility] WEBBERAn[facility] ([facility])[address] SARS-CoV-2 (COVID-19) Ag IA. rapid Ql (Resp)Ordered By: Maite Fleming on 11-27-2023 Interpretation and review of laboratory results Normal [facility] Laboratory - Drug toxicology on 07-30-2023 PHENobarbital [Mass/Vol] 14.9 ug/mL 10. 0 - 40.0 ug/mL [facility] No Panel Informationon 07-29 Interpretation and review of laboratory results Normal [facility] Basic metabolic 1998 panelon 07-27-2023 Anion gap [Moles/Vol] 12 mmol/L 3 - 13 mmol/L [facility] Calcium [Mass/Vol] 8.9 mg/dL 8.4 - 10. 4 mg/dL [facility] Chloride [Moles/Vol] 98 mmol/L 98 - 10 7 mmol/L [facility] CO2 [Moles/Vol] 26 mmol/L 22 - 30 mmol/L [facility] Creatinine [Mass/Vol] 0.62 mg/dL Low 0.66 - 1.25 mg/dL [facility] GFR/1.73 sq M.predicted MDRD (S/P/Bld) [Vol rate/Area] - PINF [facility] Comment on above: Calculation based on the Chronic Kidney Disease Epidemiology Collaboration (CKD-EPI) equation refit without adjustment for race Glucose [Mass/Vol] 128 mg/dL High 70 - 100 mg/dL [facility] Potassium [Moles/Vol] 3.9 mmol/L 3.5 - 5.1 mmol/L [facility] Sodium [Moles/Vol] 136 mmol/L 135 - 145 mmol/L [facility] Urea nitrogen [Mass/Vol] 4 mg/dL Low 9 - 20 mg/dL [facility] CBC W Auto Differential pane l (Bld)Ordered By: Aurora Garcia on 07-27-2023 Basophils (Bld) [#/Vol] 0.1 10*3/uL 0.0 - 0.2 10*3/uL [facility] Basophils/100 WBC (Bld) 0.8 % 0.0 - 2.0 % [facility] Eosinophils (Bld) [#/Vol] 0.1 10*3/uL 0.0 - 0.5 10*3/uL [facility] Eosinophils/100 WBC (Bld) 1.7 % 0.0 - 6.0 % [facility] Erythrocyte distribution width (RBC) [Ratio] 13.0 % 11.5 - 15.0 % [facility] Hematocrit (Bld) [Volume fraction] 46.2 % 40.0 - 52.0 % [facility] Hemoglobin (Bld) [Mass/Vol] 16.3 g/dL 13.0 - 18.0 g/dL [facility] Immature granulocytes (Bld) [#/Vol] 0.0 10*3/uL NINF - 0.1 10*3/uL [facility] Immature granulocytes/100 WBC (Bld) 0.3 % 0.0 - 2.0 % [facility] Interpretation and review of laboratory results Abnormal [facility] Lymphocytes (Bld) [#/Vol] 1.7 10*3/uL 1.0 - 4.3 10*3/uL [facility] Lymphocytes/100 WBC (Bld) 27.2 % 15.0 - 45.0 % [facility] MCH (RBC) [Entitic mass] 34.0 pg 26. 0 - 34.[address] [facility] MCHC (RBC) [Mass/Vol] 35.3 % 30.5 - 36.0 % [facility] MCV (RBC) [Entitic vol] 96.5 fL 77.0 - 99.[address] [facility] Monocytes (Bld) [#/Vol] 0.7 10*3/uL 0.0 - 0.9 10*3/uL [facility] Monocytes/100 WBC (Bld) 11.0 % 5.0 - 13.0 % [facility] Neutrophils (Bld) [#/Vol] 3.8 10*3/uL 1.8 - 7.5 10*3/uL [facility] Neutrophils/100 WBC (Bld) 59.0 % 38.0 - 82.0 % [facility] Nucleated RBC/100 WBC (Bld) [Ratio] 0.0 % [facility] Platelet mean volume (Bld) [Entitic vol] 8.6 fL Low 9.0 - 12.[address] [facility] Platelets (Bld) [#/Vol] 296 10*3/uL 140 - 440 10*3/uL [facility] RBC (Bld) [#/Vol] 4.79 10*6/uL 4.40 - 5.9 0 10*6/uL [facility] WBC (Bld) [#/Vol] 6.4 10*3/uL 3.6 - 10.7 10*3/uL [facility] CT Abdomen and Pelvis W cont rast Main 07-27-2023 1. No acute findings. 2. Hepatic steatosis. 3. Sigmoid colon diverticulosis without evidence of diverticulitis. Report Dictated on Electronically Signed By: Sen Bear MD Electronically Signed Date/Time: 07/27/2023 8:52 PM T [facility] Patient Name: MARIA DE [...] scattered in the thoracic and lumbar spine. [facility] Sen Bear MD - 07/27/2023 [...] Electronically Signed Date/Time: 07/27/2023 8:[address] [facility] Radiology Study observation (narrative) Pedro Alex alth CT Abdomen and Pelvis W cont rast IVOrdered By: Sen Bear on 07-27-2023 [facility] Work Phone: Ethanol (Bld) [Mass/Vol]Orde red By: Jyotsna Peralta on 07-27-2023 Ethanol [Mass/Vol] 0.337 g/dL Critically high 0.000 - 0.010 g/dL [facility] Interpretation and review of laboratory results Abnormal [facility] Hepatic function 2000 panelo n 07-27-2023 Albumin [Mass/Vol] 4.5 g/dL 3.5 - 5.0 g/dL [facility] ALP [Catalytic activity/Vol] 113 U/L 38 - 126 U/L [facility] ALT [Catalytic activity/Vol] 77 U/L High 0 - 49 U/L [facility] AST [Catalytic activity/Vol] 102 U/L High 15 - 46 U/L [facility] Bilirubin [Mass/Vol] 0.6 mg/dL 0.2 - 1 .3 mg/dL [facility] Bilirubin.conjugated [Mass/Vol] 0.0 mg/dL 0.0 - 0.3 mg/dL [facility] Protein [Mass/Vol] 7.6 g/dL 6.3 - 8.2 g/dL [facility] Laboratory - Chemistry and C hemistry - challengeon 07-27-2023 Lipase [Catalytic activity/Vol] 282 U/L 23 - 300 U/L [facility] Laboratory - Drug toxicology on 07-27-2023 Amphetamines Screen method >1000 ng/mL Ql (U) Negative [facility] Barbiturates Screen method >200 ng/mL Ql (U) [facility] Benzodiazepines Ql (U) Negative [facility] Methadone Screen Ql (U) Negative [facility] Opiates Screen Ql (U) Negative [facility] oxyCODONE Ql (U) Negative [facility] alth Phencyclidine Ql (U) Negative [facility] Laboratory - Microbiology an d Antimicrobial susceptibilityon 07-27-2023 SARS-CoV-2 (COVID-19) Ag IA.rapid Ql (Resp) Negative Negative [facility] Comment on above: A negative result do es not rule out the possibility of SARS-CoV-2 infection. NAAT-based methods should be considered for symptomatic patients presenting greater than seven days after onset of symptoms. Method: Lateral flow immunoassay. Fact sheets for healthcare providers and patients can be found at the following sites: https://www.fda.gov/media/053552/download https://www.fda.gov/media/174835/download Lipase [Catalytic activity/V ol]on 07-27-2023 Interpretation and review of laboratory results Normal [facility] No Panel Informationon 07-26 COCAINE METAB. SCREEN Negative [facility] The expected value f or [...] is needed, request confirmation under separate order. [facility] Interpretation and review of laboratory results Abnormal [facility] P [place] [address] [facility] MI Interval [address] [facility] QRS [place] [address] [facility] QRSD Interval 96 ms [facility] QT Interval [address] [facility] QTC Interval [address] [facility] T Wave [place] [address] [facility] Sinus rhythm Anterior infarct, age indeterminate Electronically Signed On 07-27-2023 19:06:02 EDT by Triston Abraham CV Triston Lehman MD - 07/27/2023 IMPRESSION: Sinus rhythm Anterior infarct, age indeterminate Electronically Signed On 07-27-2023 19:06:02 EDT by Triston Abraham [facility] SARS-CoV-2 (COVID-19) Ag IA. rapid Ql (Resp)on 07-27-2023 Interpretation and review of laboratory results Normal [facility] Vital signson 07-27-2023 Heart rate 99 /min bpm [facility] CBC W Auto Differential pane l (Bld)Ordered By: Chip Clinton on 07-08-2023 Basophils (Bld) [#/Vol] 0.0 10*3/uL 0.0 - 0.2 10*3/uL [facility] Basophils/100 WBC (Bld) 0.7 % 0.0 - 2.0 % [facility] Eosinophils (Bld) [#/Vol] 0.1 10*3/uL 0.0 - 0.5 10*3/uL [facility] Eosinophils/100 WBC (Bld) 1.0 % 0.0 - 6.0 % [facility] Erythrocyte distribution width (RBC) [Ratio] 13.7 % 11.5 - 15.0 % [facility] Hematocrit (Bld) [Volume fraction] 45.6 % 40.0 - 52.0 % [facility] Hemoglobin (Bld) [Mass/Vol] 16.1 g/dL 13.0 - 18.0 g/dL [facility] Immature granulocytes (Bld) [#/Vol] 0.0 10*3/uL NINF - 0.1 10*3/uL [facility] Immature granulocytes/100 WBC (Bld) 0.2 % 0.0 - 2.0 % [facility] Interpretation and review of laboratory results Abnormal [facility] Lymphocytes (Bld) [#/Vol] 1.7 10*3/uL 1.0 - 4.3 10*3/uL [facility] Lymphocytes/100 WBC (Bld) 29.7 % 15.0 - 45.0 % [facility] MCH (RBC) [Entitic mass] 34.0 pg 26. 0 - 34.[address] [facility] MCHC (RBC) [Mass/Vol] 35.3 % 30.5 - 36.0 % [facility] MCV (RBC) [Entitic vol] 96.2 fL 77.0 - 99.[address] [facility] Monocytes (Bld) [#/Vol] 0.5 10*3/uL 0.0 - 0.9 10*3/uL [facility] Monocytes/100 WBC (Bld) 9.0 % 5.0 - 13.0 % [facility] Neutrophils (Bld) [#/Vol] 3.5 10*3/uL 1.8 - 7.5 10*3/uL [facility] Neutrophils/100 WBC (Bld) 59.4 % 38.0 - 82.0 % [facility] Nucleated RBC/100 WBC (Bld) [Ratio] 0.0 % [facility] Platelet mean volume (Bld) [Entitic vol] 8.8 fL Low 9.0 - 12.[address] [facility] Platelets (Bld) [#/Vol] 240 10*3/uL 140 - 440 10*3/uL [facility] RBC (Bld) [#/Vol] 4.74 10*6/uL 4.40 - 5.9 0 10*6/uL [facility] WBC (Bld) [#/Vol] 5.9 10*3/uL 3.6 - 10.7 10*3/uL [facility] Comprehensive metabolic 1998 panelon 07-08-2023 Albumin [Mass/Vol] 4.5 g/dL 3.5 - 5.0 g/dL [facility] ALP [Catalytic activity/Vol] 113 U/L 38 - 126 U/L [facility] ALT [Catalytic activity/Vol] 52 U/L High 0 - 49 U/L [facility] Anion gap [Moles/Vol] 13 mmol/L 3 - 13 mmol/L [facility] AST [Catalytic activity/Vol] 79 U/L High 15 - 46 U/L [facility] Bilirubin [Mass/Vol] 0.9 mg/dL 0.2 - 1 .3 mg/dL [facility] Calcium [Mass/Vol] 9.0 mg/dL 8.4 - 10. 4 mg/dL [facility] Chloride [Moles/Vol] 94 mmol/L Low 98 - 10 7 mmol/L [facility] CO2 [Moles/Vol] 26 mmol/L 22 - 30 mmol/L [facility] Creatinine [Mass/Vol] 0.69 mg/dL 0.66 - 1.25 mg/dL [facility] GFR/1.73 sq M.predicted MDRD (S/P/Bld) [Vol rate/Area] - PINF [facility] Comment on above: Calculation based on the Chronic Kidney Disease Epidemiology Collaboration (CKD-EPI) equation refit without adjustment for race Glucose [Mass/Vol] 125 mg/dL High 70 - 100 mg/dL [facility] Interpretation and review of laboratory results Abnormal [facility] Potassium [Moles/Vol] 4.5 mmol/L 3.5 - 5.1 mmol/L [facility] Protein [Mass/Vol] 8.0 g/dL 6.3 - 8.2 g/dL [facility] Sodium [Moles/Vol] 134 mmol/L Low 135 - 145 mmol/L [facility] Urea nitrogen [Mass/Vol] 4 mg/dL Low 9 - 20 mg/dL [facility] Ethanol (Bld) [Mass/Vol]Orde red By: Shellie Morel on 07-08-2023 Ethanol [Mass/Vol] 0.358 g/dL Critically high 0.000 - 0.010 g/dL [facility] Interpretation and review of laboratory results Abnormal [facility] Laboratory - Drug toxicology on 07-08-2023 Amphetamines Screen method >1000 ng/mL Ql (U) Negative [facility] Barbiturates Screen method >200 ng/mL Ql (U) Negative [facility] Benzodiazepines Ql (U) Negative [facility] Methadone Screen Ql (U) Negative [facility] Opiates Screen Ql (U) Negative [facility] oxyCODONE Ql (U) Negative [facility]th Phencyclidine Ql (U) Negative [facility] Laboratory - Microbiology an d Antimicrobial susceptibilityOrdered By: Mitul Olson on 07-08-2023 SARS-CoV-2 (COVID-19) Ag IA.rapid Ql (Resp) Negative Negative [facility] Comment on above: A negative result do es not rule out the possibility of SARS-CoV-2 infection. NAAT-based methods should be considered for symptomatic patients presenting greater than seven days after onset of symptoms. Method: Lateral flow immunoassay. Fact sheets for healthcare providers and patients can be found at the following sites: https://www.fda.gov/media/265854/download https://www.fda.gov/media/285041/download No Panel Informationon 07-07 COCAINE METAB. SCREEN Negative [facility] The expected value f or [...] is needed, request confirmation under separate order. [facility] P [place] [address] [facility] MI Interval [address] [facility] QRS [place] [address] [facility] QRSD Interval 105 ms [facility] h QT Interval [address] [facility] QTC Interval [address] [facility] T Wave [place] [address] [facility] Sinus tachycardia Probable left atrial enlargement No previous ECG available for comparison Electronically Signed On 07-08-2023 18:36:57 EDT by Catalino Mujica CV Catalino Hernandez MD - 07/08/2023 IMPRESSION: Sinus tachycardia Probable left atrial enlargement No previous ECG available for comparison Electronically Signed On 07-08-2023 18:36:57 EDT by Catalino Mujica [facility] SARS-CoV-2 (COVID-19) Ag IA. rapid Ql (Resp)Ordered By: Mitul Olson on 07-08-2023 Interpretation and review of laboratory results Normal [facility] Vital signson 07-08-2023 Heart rate 104 /min bpm [facility] Laboratory - Drug toxicology Ordered By: Bipin Wilson on 05-21-2023 Amphetamines Ql (U) Negative Negative [facility] Benzodiazepines Ql (U) Negative Negative [facility] Cocaine Ql (U) Negative Negative [facility] Ethanol [Mass/Vol] Positive Negative [facility] Methadone Ql (U) Negative Negative [facility] Opiates Ql (U) Negative Negative [facility] No Panel InformationOrdered By: Keila Marina on 05-21-2023 P [place] 78 degrees [facility] Work Phone: MI Interval 154 ms [facility] Work Phone: QRS [place] 75 degrees [facility] Work Phone: QRSD [facility] QT Interval 381 ms [facility] Work Phone: QTC Interval 484 ms [facility] Work Phone: T Wave [place] 60 degrees [facility] Work Phone: [facility] Work Phone: No Panel Informationon 05-21 Sinus rhythm Consider left atrial enlargement Abnormal T, consider ischemia, anterior leads no significant change from prior Electronically Signed On 05-21-2023 13:12:25 EST by Keila Gomez, DO - 05/21/2023 IMPRESSION: Sinus rhythm Consider left atrial enlargement Abnormal T, consider ischemia, anterior leads no significant change from prior Electronically Signed On 05-21-2023 13:12:25 EST by Keila Mraina [facility] ETHYL GLUCURONIDE, URINE Positive Negative [facility] Ethyl Glucuronide sainz s been screened [...] been determined by the clinical laboratories of [facility]. [facility] No Panel InformationOrdered By: Bipin Wilson on 05-21-[address] [facility] BUPRENORPHINE SCREEN Negative Negative [facility] FENTANYL Negative Negative [facility] OXYCODONE/OXYMORPHONE Negative Negative [facility] PCP Negative Negative [facility] THC Negative Negative [facility] The expected value f or the [...] treatment only. Analysis performed using non-forensic procedures. [facility] Vital signsOrdered By: Keila Salas on 05-21-2023 Heart rate 97 /min bpm [facility] Work Phone: CBC W Auto Differential pane l (Bld)Ordered By: Mitul Olson on 05-20-2023 Basophils (Bld) [#/Vol] 0.1 10*3/uL 0.0 - 0.2 10*3/uL [facility] Basophils/100 WBC (Bld) 1.3 % 0.0 - 2.0 % [facility] Eosinophils (Bld) [#/Vol] 0.1 10*3/uL 0.0 - 0.5 10*3/uL [facility] Eosinophils/100 WBC (Bld) 1.1 % 1.0 - 6.0 % [facility] Erythrocyte distribution width (RBC) [Ratio] 14.2 % 11.5 - 14.5 % [facility] Hematocrit (Bld) [Volume fraction] 47.4 % 40.0 - 52.0 % [facility] Hemoglobin (Bld) [Mass/Vol] 16.3 g/dL 13.0 - 18.0 g/dL [facility] Interpretation and review of laboratory results Abnormal [facility] Lymphocytes (Bld) [#/Vol] 1.4 10*3/uL 1.0 - 4.3 10*3/uL [facility] Lymphocytes/100 WBC (Bld) 26.0 % 20.0 - 40.0 % [facility] MCH (RBC) [Entitic mass] 33.6 pg 26. 0 - 34.[address] [facility] MCHC (RBC) [Mass/Vol] 34.4 % 32.0 - 36.0 % [facility] MCV (RBC) [Entitic vol] 97.7 fL 80.0 - 98.[address] [facility] Monocytes (Bld) [#/Vol] 0.8 10*3/uL 0.0 - 0.8 10*3/uL [facility] Monocytes/100 WBC (Bld) 15.2 % High 2.0 - 10.0 % [facility] Neutrophils (Bld) [#/Vol] 3.1 10*3/uL 1.8 - 7.0 10*3/uL [facility] Neutrophils/100 WBC (Bld) 56.4 % 40.0 - 80.0 % [facility] Nucleated RBC/100 WBC (Bld) [Ratio] 0.1 % [facility] Platelet mean volume (Bld) [Entitic vol] 7.0 fL Low 7.4 - 12.4 fL [facility] Platelets (Bld) [#/Vol] 199 10*3/uL 140 - 440 10*3/uL [facility] RBC (Bld) [#/Vol] 4.86 10*6/uL 4.40 - 5.9 0 10*6/uL [facility] WBC (Bld) [#/Vol] 5.5 10*3/uL 3.6 - 10.7 10*3/uL [facility] CT Abdomen and Pelvis W cont rast Main 05-20-2023 No acute findings. Report Dictated on Electronically Signed By: Johnson Haro MD Electronically Signed Date/Time: 05/20/2023 10:13 PM EST [facility] [employer] [facility] Patient Name: MARIA DE JESUS HOGAN [...] obstruction. No free fluid. Bladder is unremarkable. [facility] Johnson Haro MD - 05/20/2023 Patient [...] Electronically Signed Date/Time: 05/20/2023 10:[address] [facility] Radiology Study observation (narrative) [facility] CT Abdomen and Pelvis W cont rast IVOrdered By: Johnson Haro on 05-20-2023 [facility] Work Phone: Comprehensive metabolic 1998 panelon 05-20-2023 Albumin [Mass/Vol] 4.2 g/dL 3.5 - 5.0 g/dL [facility] ALP [Catalytic activity/Vol] 104 U/L 38 - 126 U/L [facility] ALT [Catalytic activity/Vol] 140 U/L High 0 - 49 U/L [facility] Anion gap [Moles/Vol] 17 mmol/L High 3 - 13 mmol/L [facility] AST [Catalytic activity/Vol] 123 U/L High 15 - 46 U/L [facility] Bilirubin [Mass/Vol] 0.6 mg/dL 0.2 - 1 .3 mg/dL [facility] Calcium [Mass/Vol] 9.0 mg/dL 8.4 - 10. 4 mg/dL [facility] Chloride [Moles/Vol] 92 mmol/L Low 98 - 10 7 mmol/L [facility] CO2 [Moles/Vol] 21 mmol/L Low 22 - 30 mmol/L [facility] Creatinine [Mass/Vol] 0.60 mg/dL Low 0.66 - 1.25 mg/dL [facility] GFR/1.73 sq M.predicted MDRD (S/P/Bld) [Vol rate/Area] - PINF [facility] Comment on above: Calculation based on the Chronic Kidney Disease Epidemiology Collaboration (CKD-EPI) equation refit without adjustment for race Glucose [Mass/Vol] 119 mg/dL High 70 - 100 mg/dL [facility] Interpretation and review of laboratory results Abnormal [facility] Potassium [Moles/Vol] 3.8 mmol/L 3.5 - 5.1 mmol/L [facility] Protein [Mass/Vol] 7.4 g/dL 6.3 - 8.2 g/dL [facility] Sodium [Moles/Vol] 130 mmol/L Low 135 - 145 mmol/L [facility] Urea nitrogen [Mass/Vol] 5 mg/dL Low 9 - 20 mg/dL [facility] Laboratory - Chemistry and C hemistry - challengeon 05-20-2023 Base excess Calc (BldV) [Moles/Vol] -1.0000 mmol/L -3 - 3 mmol/L [facility] CO2 (BldV) [Partial pressure] 48.3 mm[Hg] [facility] HCO3 (Bld) [Moles/Vol] 25.6 mmol/L 23.0 - 27.0 mmol/L [facility] Oxygen (BldV) [Partial pressure] 53.3 mm[Hg] mm Hg [facility] pH (BldV) 7.333 [pH] 7.330 - 7.[address] [facility] Troponin I.cardiac [Mass/Vol] ng/mL NINF - 0.034 ng/mL [facility] Lipase [Catalytic activity/Vol] 230 U/L 23 - 300 U/L [facility] Lipase [Catalytic activity/V ol]on 05-20-2023 Interpretation and review of laboratory results Normal [facility] No Panel Informationon 05-[address] [facility] Performed by: Pedro Hoyt [facility], [address] [place] [id number] CLIA ID: [id number] [facility] Radiology Study observation (narrative) [facility] Troponin I.cardiac [Mass/Vol ]on 05-20-2023 Interpretation and review of laboratory results Normal [facility] Patients with high levels of Biotin oral intake (ie >5 mg/day) may have falsely decreased Troponin levels. [facility] Urinalysis complete panel (U )Ordered By: Rebeca Rhodes on 05-20-2023 Bilirubin Ql (U) Negative Negative mg/dL [facility] Clarity (U) Clear Clear [facility] Color (U) Colorless Lt. Yellow [facility] Glucose Ql (U) Normal Normal (<70) mg/dL [facility] Hemoglobin Ql (U) Negative Negative mg/dL [facility] Interpretation and review of laboratory results Abnormal [facility] Ketones (U) [Mass/Vol] Negative Negat shiv mg/dL [facility] Leukocyte esterase Test strip Ql (U) Negative Negative Estefani/uL [facility] Nitrite Ql (U) Negative Negative [facility] th pH (U) 5.5 [pH] 5.0 - 8.[address] [facility] Protein (U) [Mass/Vol] Negative Negat shiv mg/dL [facility] Specific gravity (U) [Rel density] 1.003 Low 1.005 - 1.030 [facility] Urobilinogen (U) [Mass/Vol] Normal Normal (0-1) mg/dL [facility] Vital signson 05-20-2023 Oxygen saturation in Venous blood 84.6 % [facility] Comment on above: Performed by CLIA ID : [id number] [place], [place] ?Device: [id number] [employer] Maker ID: [id number] XR Chest Single viewon 05-20 FINDINGS AND IMPRESSION: SUPPORT DEVICES: None OSSEOUS STRUCTURES: Degenerative changes in the thoracic spine. HEART AND MEDIASTINUM: The cardiomediastinal silhouette appears unchanged from the prior exam. LUNGS AND PLEURA: The lungs are clear.. Mildly elevated right hemidiaphragm, unchanged. No sizable pleural effusion. Report Dictated on Electronically Signed By: Harjinder Gotti MD Electronically Signed Date/Time: 05/20/2023 8:40 PM [facility] Patient Name: MARIA DE JESUS HOGAN : 1965 Exam Date/Time: 05/20/2023 20:23 Procedure: XR CHEST 1 VIEW Ordering Provider: LUNA QUENTIN Reason For Exam: sob CHEST CLINICAL INDICATION: Dyspnea TECHNIQUE: AP portable chest COMPARISON: 09/06/2021 [facility] Harjinder Gotti MD - [...] Electronically Signed Date/Time: 05/20/2023 8:[address] [facility] Radiology Study observation (narrative) [facility] XR Chest Single viewOrdered By: Harjinder Gotti on 05-20-2023 [facility] Work Phone: XR Hand - left 3 Viewson No acute fracture or dislocation identified. Report Dictated on Electronically Signed By: Nate De La O MD Electronically Signed Date/Time: 03/19/2023 11:04 AM EST [facility] [employer] [facility] Patient Name: MARIA DE JESUS HOGAN [...] identified. There is no soft tissue abnormality. [facility] [employer] [facility] Nate De La O MD - [...] Electronically Signed Date/Time: 03/19/2023 11:[address] [facility] Radiology Study observation (narrative) [facility] XR Hand - left 3 ViewsOrdere d By: Nate De La O on 03-19-2023 [facility] Work Phone: Hepatic function 2000 panelo n 02-11-2023 Albumin [Mass/Vol] 4.1 g/dL 3.5 - 5.0 g/dL [facility] ALP [Catalytic activity/Vol] 86 U/L 38 - 126 U/L [facility] ALT [Catalytic activity/Vol] 129 U/L High 0 - 49 U/L [facility] AST [Catalytic activity/Vol] 90 U/L High 15 - 46 U/L [facility] Bilirubin [Mass/Vol] 1.0 mg/dL 0.2 - 1 .3 mg/dL [facility] Bilirubin.conjugated [Mass/Vol] 0.0 mg/dL 0.0 - 0.3 mg/dL [facility] Interpretation and review of laboratory results Abnormal [facility] Protein [Mass/Vol] 7.0 g/dL 6.3 - 8.2 g/dL [facility] Hepatic function 2000 panelo n 02-10-2023 Albumin [Mass/Vol] 4.4 g/dL 3.5 - 5.0 g/dL [facility] ALP [Catalytic activity/Vol] 98 U/L 38 - 126 U/L [facility] ALT [Catalytic activity/Vol] 153 U/L High 0 - 49 U/L [facility] AST [Catalytic activity/Vol] 121 U/L High 15 - 46 U/L [facility] Bilirubin [Mass/Vol] 1.2 mg/dL 0.2 - 1 .3 mg/dL [facility] Bilirubin.conjugated [Mass/Vol] 0.0 mg/dL 0.0 - 0.3 mg/dL [facility] Interpretation and review of laboratory results Abnormal [facility] Protein [Mass/Vol] 7.5 g/dL 6.3 - 8.2 g/dL [facility] CBC W Auto Differential pane l (Bld)Ordered By: Maite Fleming on 02-08-2023 Basophils (Bld) [#/Vol] 0.0 10*3/uL 0.0 - 0.2 10*3/uL [facility] Basophils/100 WBC (Bld) 1.0 % 0.0 - 2.0 % [facility] Eosinophils (Bld) [#/Vol] 0.0 10*3/uL 0.0 - 0.5 10*3/uL [facility] Eosinophils/100 WBC (Bld) 1.0 % 1.0 - 6.0 % [facility] Erythrocyte distribution width (RBC) [Ratio] 14.9 % High 11.5 - 14.5 % [facility] Hematocrit (Bld) [Volume fraction] 49.0 % 40.0 - 52.0 % [facility] Hemoglobin (Bld) [Mass/Vol] 16.8 g/dL 13.0 - 18.0 g/dL [facility] Interpretation and review of laboratory results Abnormal [facility] Lymphocytes (Bld) [#/Vol] 1.3 10*3/uL 1.0 - 4.3 10*3/uL [facility] Lymphocytes/100 WBC (Bld) 34.2 % 20.0 - 40.0 % [facility] MCH (RBC) [Entitic mass] 33.7 pg 26. 0 - 34.[address] [facility] MCHC (RBC) [Mass/Vol] 34.4 % 32.0 - 36.0 % [facility] MCV (RBC) [Entitic vol] 98.1 fL High 80.0 - 98.[address] [facility] Monocytes (Bld) [#/Vol] 0.6 10*3/uL 0.0 - 0.8 10*3/uL [facility] Monocytes/100 WBC (Bld) 15.6 % High 2.0 - 10.0 % [facility] Neutrophils (Bld) [#/Vol] 1.8 10*3/uL 1.8 - 7.0 10*3/uL [facility] Neutrophils/100 WBC (Bld) 48.2 % 40.0 - 80.0 % [facility] Nucleated RBC/100 WBC (Bld) [Ratio] 0.0 % [facility] Platelet mean volume (Bld) [Entitic vol] 7.7 fL 7.4 - 12.[address] [facility] Platelets (Bld) [#/Vol] 138 10*3/uL Low 140 - 440 10*3/uL [facility] RBC (Bld) [#/Vol] 4.99 10*6/uL 4.40 - 5.9 0 10*6/uL [facility] WBC (Bld) [#/Vol] 3.7 10*3/uL 3.6 - 10.7 10*3/uL [facility] Comprehensive metabolic 1998 panelon 02-08-2023 Albumin [Mass/Vol] 4.4 g/dL 3.5 - 5.0 g/dL [facility] ALP [Catalytic activity/Vol] 107 U/L 38 - 126 U/L [facility] ALT [Catalytic activity/Vol] 194 U/L High 0 - 49 U/L [facility] Anion gap [Moles/Vol] 14 mmol/L High 3 - 13 mmol/L [facility] AST [Catalytic activity/Vol] 207 U/L High 15 - 46 U/L [facility] Bilirubin [Mass/Vol] 0.8 mg/dL 0.2 - 1 .3 mg/dL [facility] Calcium [Mass/Vol] 8.4 mg/dL 8.4 - 10. 4 mg/dL [facility] Chloride [Moles/Vol] 92 mmol/L Low 98 - 10 7 mmol/L [facility] CO2 [Moles/Vol] 26 mmol/L 22 - 30 mmol/L [facility] Creatinine [Mass/Vol] 0.65 mg/dL Low 0.66 - 1.25 mg/dL [facility] GFR/1.73 sq M.predicted MDRD (S/P/Bld) [Vol rate/Area] - PINF [facility] Comment on above: Calculation based on the Chronic Kidney Disease Epidemiology Collaboration (CKD-EPI) equation refit without adjustment for race Glucose [Mass/Vol] 113 mg/dL High 70 - 100 mg/dL [facility] Interpretation and review of laboratory results Abnormal [facility] Potassium [Moles/Vol] 4.4 mmol/L 3.5 - 5.1 mmol/L [facility] Protein [Mass/Vol] 7.9 g/dL 6.3 - 8.2 g/dL [facility] Sodium [Moles/Vol] 132 mmol/L Low 135 - 145 mmol/L [facility] Urea nitrogen [Mass/Vol] 7 mg/dL Low 9 - 20 mg/dL [facility] Chemistry specimen i s slightly hemolyzed, interpret results with caution. [facility] Ethanol (Bld) [Mass/Vol]Orde red By: Jyotsna Peralta on 02-08-2023 Ethanol [Mass/Vol] 0.448 g/dL Critically high 0.000 - 0.010 g/dL [facility] Interpretation and review of laboratory results Abnormal [facility] Laboratory - Drug toxicology Ordered By: Nanette Elias on 02-08-2023 Amphetamines Screen method >1000 ng/mL Ql (U) Negative [facility] Barbiturates Screen method >200 ng/mL Ql (U) Negative [facility] ealth Benzodiazepines Ql (U) Negative [facility] Methadone Screen Ql (U) Negative [facility] Opiates Screen Ql (U) Negative [facility] oxyCODONE Ql (U) Negative [facility] alth Phencyclidine Ql (U) Negative [facility] Laboratory - Microbiology an d Antimicrobial susceptibilityon 02-08-2023 FLUAV RNA NICOLAS+probe Ql (Resp) Not detected Not Detected [facility] FLUBV RNA NICOLAS+probe Ql (Resp) Not detected Not Detected [facility] RSV RNA NICOLAS+probe Ql (Resp) Not detected Not Detected [facility] SARS-CoV-2 (COVID-19) RNA NICOLAS+probe Ql (Resp) Not detected Not Detected [facility] SARS-CoV-2 (COVID-19) RNA NICOLAS+probe Ql (Unsp spec) Methodology: real-time, RT-PCR The SARS-CoV-2, Flu A/B, and RSV Combo assay is intended for in vitro diagnostic use under the FDA Emergency Use Authorization (EUA). This test has not been FDA cleared or approved. In compliance with this authorization, please visit www.fda.gov/media/8218 35/download or www.fda.gov/media/0826 36/download to access the applicable information sheets. [facility] No Panel InformationOrdered By: Nanette Elias on 02-08-2023 COCAINE METAB. SCREEN Negative [facility] The expected value f or all of [...] is needed, request confirmation under separate order. [facility] SARS-CoV-2, Flu A/B, and RSV Comboon 02-08-2023 Interpretation and review of laboratory results Normal [facility] Urinalysis complete panel (U )on 02-08-2023 Bilirubin Ql (U) Negative Negative mg/dL [facility] Clarity (U) Clear Clear [facility] Color (U) Light Yellow Lt. Yellow [facility] Glucose Ql (U) Normal Normal (<70) mg/dL [facility] Hemoglobin Ql (U) Negative Negative mg/dL [facility] Interpretation and review of laboratory results Normal [facility] Ketones (U) [Mass/Vol] Negative Negat shiv mg/dL [facility] Leukocyte esterase Test strip Ql (U) Negative Negative Estefani/uL [facility] Nitrite Ql (U) Negative Negative [facility] th pH (U) 5.5 [pH] 5.0 - 8.[address] [facility] Protein (U) [Mass/Vol] Negative Negat shiv mg/dL [facility] Specific gravity (U) [Rel density] 1.005 1.005 - 1.030 [facility] Urobilinogen (U) [Mass/Vol] Normal Normal (0-1) mg/dL [facility] Cobalamin (Vitamin B12) [Mas s/Vol]on 11-01-2022 Interpretation and review of laboratory results Normal [facility] HbA1c (Bld) [Mass fraction]o n 11-01-2022 Average glucose Estimated from glycated hemoglobin (Bld) [Mass/Vol] 103 mg/dL [facility] Hemoglobin A1con 11-01-2022 HbA1c (Bld) [Mass fraction] 5.2 % NINF - 5.7 % [facility] Comment on above: Normal less than 5.7 % Prediabetes 5.7% to 6.4% Diabetes 6.5% or higher --HgbA1C levels may not be accurate in patients who have renal disease, received recent blood transfusions, are anemic, or who have dyshemoglobinemia. Iron and Iron binding capaci ty panelon 11-01-2022 Interpretation and review of laboratory results Normal [facility] Iron [Mass/Vol] 104 ug/dL 49 - 181 ug/dL [facility] Vitamin B12on 11-01-2022 Cobalamin (Vitamin B12) [Mass/Vol] 289 pg/mL 239 - 931 pg/mL [facility] CBC W Auto Differential pane l (Bld)Ordered By: Rosalee Troy on 09-29-2022 Basophils (Bld) [#/Vol] 0.1 10*3/uL 0.0 - 0.2 10*3/uL [facility] Basophils/100 WBC (Bld) 0.8 % 0.0 - 2.0 % [facility] Eosinophils (Bld) [#/Vol] 0.5 10*3/uL 0.0 - 0.5 10*3/uL [facility] Eosinophils/100 WBC (Bld) 5.0 % 1.0 - 6.0 % [facility] Erythrocyte distribution width (RBC) [Ratio] 12.1 % 11.5 - 14.5 % [facility] Hematocrit (Bld) [Volume fraction] 41.5 % 40.0 - 52.0 % [facility] Hemoglobin (Bld) [Mass/Vol] 14.2 g/dL 13.0 - 18.0 g/dL [facility] Immature granulocytes (Bld) [#/Vol] 0.0 10*3/uL NINF - 0.0 10*3/uL [facility] Immature granulocytes/100 WBC (Bld) 0.3 % High NINF - 0.0 % [facility] Interpretation and review of laboratory results Abnormal [facility] Lymphocytes (Bld) [#/Vol] 1.9 10*3/uL 1.0 - 4.3 10*3/uL [facility] Lymphocytes/100 WBC (Bld) 21.6 % 20.0 - 40.0 % [facility] MCH (RBC) [Entitic mass] 33.7 pg 26. 0 - 34.[address] [facility] MCHC (RBC) [Mass/Vol] 34.2 % 32.0 - 36.0 % [facility] MCV (RBC) [Entitic vol] 98.6 fL High 80.0 - 98.[address] [facility] Monocytes (Bld) [#/Vol] 0.8 10*3/uL 0.0 - 0.8 10*3/uL [facility] Monocytes/100 WBC (Bld) 9.4 % 2.0 - 10.0 % [facility] Neutrophils (Bld) [#/Vol] 5.6 10*3/uL 1.8 - 7.0 10*3/uL [facility] Neutrophils/100 WBC (Bld) 62.9 % 40.0 - 80.0 % [facility] Platelet mean volume (Bld) [Entitic vol] 8.1 fL 7.4 - 12.[address] [facility] Comment on above: MPV is a calculated measurement using platelet volume ratio Platelets (Bld) [#/Vol] 494 10*3/uL High 140 - 440 10*3/uL [facility] RBC (Bld) [#/Vol] 4.21 10*6/uL Low 4.40 - 5.9 0 10*6/uL [facility] WBC (Bld) [#/Vol] 9.0 10*3/uL 3.6 - 10.7 10*3/uL [facility] Comprehensive metabolic 1998 panelon 09-29-2022 Albumin [Mass/Vol] 3.8 g/dL 3.5 - 5.0 g/dL [facility] ALP [Catalytic activity/Vol] 83 U/L 38 - 126 U/L [facility] ALT [Catalytic activity/Vol] 38 U/L 0 - 49 U/L [facility] Anion gap [Moles/Vol] 4 mmol/L 3 - 13 mmol/L [facility] AST [Catalytic activity/Vol] 33 U/L 15 - 46 U/L [facility] Bilirubin [Mass/Vol] 0.3 mg/dL 0.2 - 1 .3 mg/dL [facility] Calcium [Mass/Vol] 8.5 mg/dL 8.4 - 10. 4 mg/dL [facility] Chloride [Moles/Vol] 101 mmol/L 98 - 10 7 mmol/L [facility] CO2 [Moles/Vol] 32 mmol/L High 22 - 30 mmol/L [facility] Creatinine [Mass/Vol] 0.76 mg/dL 0.66 - 1.25 mg/dL [facility] GFR/1.73 sq M.predicted MDRD (S/P/Bld) [Vol rate/Area] - PINF [facility] Comment on above: Calculation based on the Chronic Kidney Disease Epidemiology Collaboration (CKD-EPI) equation refit without adjustment for race Glucose [Mass/Vol] 112 mg/dL High 70 - 100 mg/dL [facility] Interpretation and review of laboratory results Abnormal [facility] Potassium [Moles/Vol] 3.7 mmol/L 3.5 - 5.1 mmol/L [facility] Protein [Mass/Vol] 6.8 g/dL 6.3 - 8.2 g/dL [facility] Sodium [Moles/Vol] 137 mmol/L 135 - 145 mmol/L [facility] Urea nitrogen [Mass/Vol] 6 mg/dL Low 9 - 20 mg/dL [facility] Hepatitis 1996 panel (S)on 09-29-2022 HAV IgM IA Ql Not detected Not Detected [facility] HBV core IgM IA Ql Not detected Not Detected [facility] HBV surface Ag IA Ql Not detected Not Detected [facility] HCV Ab IA Ql Not detected Not Detected [facility] Comment on above: Patients with DETECT ED Hepatitis C Ab results should have a new specimen submitted for supplemental testing with a Hepatitis C Quantitative RNA assay (viral load), if clinically indicated. Interpretation and review of laboratory results Normal [facility] No Panel InformationOrdered By: Katrina Spencer on 09-12-2022 P [place] 68 degrees [facility] Work Phone: MI Interval [address] [facility] Work Phone: QRS [place] [address] [facility] Work Phone: QRSD Interval 85 ms [facility] Work Phone: QT Interval 339 ms [employer] Work Phone: QTC Interval 448 ms [employer] Work Phone: T Wave [place] 62 degrees [employer] [facility] Work Phone: [employer] Work Phone: No Panel Informationon 09-12 Sinus tachycardia Probable left atrial enlargement Borderline T abnormalities, anterior leads Electronically Signed On 09-12-2022 13:06:59 EDT by Katrina Montero MD - 09/12/2022 IMPRESSION: Sinus tachycardia Probable left atrial enlargement Borderline T abnormalities, anterior leads Electronically Signed On 09-12-2022 13:06:59 EDT by Katrina Spencer [facility] Vital signsOrdered By: Brianna Spencer on 09-12-2022 Heart rate 105 /min bpm [employer] [facility] [facility] Work Phone: CBC W Auto Differential pane l (Bld)Ordered By: Magali Hawkins on 09-10-2022 Basophils (Bld) [#/Vol] 0.1 10*3/uL 0.0 - 0.2 10*3/uL [facility] Basophils/100 WBC (Bld) 1.4 % 0.0 - 2.0 % [facility] Eosinophils (Bld) [#/Vol] 0.0 10*3/uL 0.0 - 0.5 10*3/uL [facility] Eosinophils/100 WBC (Bld) 0.6 % Low 1.0 - 6.0 % [facility] Erythrocyte distribution width (RBC) [Ratio] 13.8 % 11.5 - 14.5 % [facility] Hematocrit (Bld) [Volume fraction] 49.7 % 40.0 - 52.0 % [facility] [facility] Hemoglobin (Bld) [Mass/Vol] 16.6 g/dL 13.0 - 18.0 g/dL [facility] Interpretation and review of laboratory results Abnormal [facility] Lymphocytes (Bld) [#/Vol] 1.2 10*3/uL 1.0 - 4.3 10*3/uL [facility] Lymphocytes/100 WBC (Bld) 23.3 % 20.0 - 40.0 % [facility] MCH (RBC) [Entitic mass] 33.4 pg 26. 0 - 34.[address] [facility] MCHC (RBC) [Mass/Vol] 33.5 % 32.0 - 36.0 % [facility] MCV (RBC) [Entitic vol] 100.0 fL High 80.0 - 98.[address] [facility] Monocytes (Bld) [#/Vol] 0.7 10*3/uL 0.0 - 0.8 10*3/uL [facility] Monocytes/100 WBC (Bld) 14.2 % High 2.0 - 10.0 % [facility] Neutrophils (Bld) [#/Vol] 3.2 10*3/uL 1.8 - 7.0 10*3/uL [facility] Neutrophils/100 WBC (Bld) 60.5 % 40.0 - 80.0 % [facility] Nucleated RBC/100 WBC (Bld) [Ratio] 0.3 % [facility] Platelet mean volume (Bld) [Entitic vol] 7.7 fL 7.4 - 12.[address] [facility] Platelets (Bld) [#/Vol] 183 10*3/uL 140 - 440 10*3/uL [facility] RBC (Bld) [#/Vol] 4.97 10*6/uL 4.40 - 5.9 0 10*6/uL [facility] WBC (Bld) [#/Vol] 5.3 10*3/uL 3.6 - 10.7 10*3/uL [facility] CK [Catalytic activity/Vol]o n 09-10-2022 Interpretation and review of laboratory results Normal [facility] CT Abdomen WO contraston 1. No evidence of acute infectious or inflammatory process in the abdomen or pelvis. 2. The liver demonstrates generalized diminished attenuation as compared to the spleen, compatible with hepatic steatosis 3. Few scattered descending colon diverticula without evidence of acute diverticulitis Report Dictated on Electronically Signed By: Barry Lam Electronically Signed Date/Time: 09/10/2022 2:52 PM EDT [facility] Patient Name: MARIA DE [...] structures: Multilevel spondylosis. No suspicious osseous lesion. [facility] Barry Lam MD - 09/10/2022 [facility] Name: [facility] 1965 [id number] Exam Date/Time: 09/10/2022 14:30 Procedure: CT ABDOMEN [...] Electronically Signed Date/Time: 09/10/2022 2:52 PM EDT [facility] Radiology Study observation (narrative) [facility] CT Abdomen WO contrastOrdere d By: Barry Lma on 09-10-2022 [facility] Work Phone: Comprehensive metabolic 1998 panelon 09-10-2022 Albumin [Mass/Vol] 4.2 g/dL 3.5 - 5.0 g/dL [facility] ALP [Catalytic activity/Vol] 140 U/L High 38 - 126 U/L [facility] ALT [Catalytic activity/Vol] 123 U/L High 0 - 49 U/L [facility] Anion gap [Moles/Vol] 10 mmol/L 3 - 13 mmol/L [facility] AST [Catalytic activity/Vol] 156 U/L High 15 - 46 U/L [facility] Bilirubin [Mass/Vol] 0.6 mg/dL 0.2 - 1 .3 mg/dL [facility] Calcium [Mass/Vol] 8.0 mg/dL Low 8.4 - 10. 4 mg/dL [facility] Chloride [Moles/Vol] 98 mmol/L 98 - 10 7 mmol/L [facility] CO2 [Moles/Vol] 24 mmol/L 22 - 30 mmol/L [facility] Creatinine [Mass/Vol] 0.57 mg/dL Low 0.66 - 1.25 mg/dL [facility] GFR/1.73 sq M.predicted MDRD (S/P/Bld) [Vol rate/Area] - PINF [facility] Comment on above: Calculation based on the Chronic Kidney Disease Epidemiology Collaboration (CKD-EPI) equation refit without adjustment for race Glucose [Mass/Vol] 141 mg/dL High 70 - 100 mg/dL [facility] Potassium [Moles/Vol] 4.3 mmol/L 3.5 - 5.1 mmol/L [facility] Protein [Mass/Vol] 7.5 g/dL 6.3 - 8.2 g/dL [facility] Sodium [Moles/Vol] 132 mmol/L Low 135 - 145 mmol/L [facility] Urea nitrogen [Mass/Vol] 6 mg/dL Low 9 - 20 mg/dL [facility] Slightly Hemolyzed. Interpret ALKALINE PHOSPHATASE, AST, and POTASSIUM with caution. [facility] Ethanol (Bld) [Mass/Vol]Orde red By: Ruchi Mancera on 09-10-2022 Ethanol [Mass/Vol] 0.384 g/dL Critically high 0.000 - 0.010 g/dL [facility] Interpretation and review of laboratory results Abnormal [facility] Slightly Hemolyzed. Interpret with caution. NOTE: This result is for medical treatment only. Analysis performed using non-forensic procedures. [facility] Laboratory - Chemistry and C hemistry - challengeon 09-10-2022 CK [Catalytic activity/Vol] 107 U/L 30 - 170 U/L [facility] Lipase [Catalytic activity/Vol] 389 U/L High 23 - 300 U/L [facility] Laboratory - Drug toxicology Ordered By: Zulma Nolan on 09-10-2022 Amphetamines Screen method >1000 ng/mL Ql (U) Negative [facility] Barbiturates Screen method >200 ng/mL Ql (U) [facility] Benzodiazepines Ql (U) Negative [facility] Methadone Screen Ql (U) Negative [facility] Opiates Screen Ql (U) Negative [facility] oxyCODONE Ql (U) Negative [facility] alth Phencyclidine Ql (U) Negative [facility] Laboratory - Drug toxicology on 09-10-2022 Acetaminophen [Mass/Vol] ug/mL Low 10. 0 - 30.0 ug/mL [facility] No Panel InformationOrdered By: Zulma Nolan on 09-10-2022 COCAINE METAB. SCREEN Negative [facility] The expected value f or [...] is needed, request confirmation under separate order. [facility] No Panel Informationon 09-10 Interpretation and review of laboratory results Abnormal [facility] SARS-CoV-2 (COVID-19) RNA pa lowell NICOLAS+probe (Resp)on 09-10-2022 Interpretation and review of laboratory results Normal [facility] SARS-CoV-2 (COVID-19) RNA NICOLAS+probe Ql (Resp) Not detected Not Detected [facility] SARS-CoV-2 (COVID-19) RNA NICOLAS+probe Ql (Unsp spec) Methodology: real-time, RT-PCR The SARS-CoV-2 assay is intended for in vitro diagnostic use under the FDA Emergency Use Authorization (EUA). This test has not been FDA cleared or approved. In compliance with this authorization, please visit www.fda.gov/media/2865 35/download or www.fda.gov/media/1420 36/download to access the applicable information sheets. [facility] CBC panel Auto (Bld)Ordered By: Papito Emerson on 07-23-2022 Erythrocyte distribution width (RBC) [Ratio] 14.9 % High 11.5 - 14.5 % [facility] Hematocrit (Bld) [Volume fraction] 46.9 % 40.0 - 52.0 % [facility] Hemoglobin (Bld) [Mass/Vol] 15.9 g/dL 13.0 - 18.0 g/dL [facility] Interpretation and review of laboratory results Abnormal [facility] MCH (RBC) [Entitic mass] 33.3 pg 26. 0 - 34.[address] [facility] MCHC (RBC) [Mass/Vol] 34.0 % 32.0 - 36.0 % [facility] MCV (RBC) [Entitic vol] 98.1 fL High 80.0 - 98.[address] [facility] Platelet mean volume (Bld) [Entitic vol] 6.9 fL Low 7.4 - 12.[address] [facility] Platelets (Bld) [#/Vol] 198 10*3/uL 140 - 440 10*3/uL [facility] RBC (Bld) [#/Vol] 4.78 10*6/uL 4.40 - 5.9 0 10*6/uL [facility] WBC (Bld) [#/Vol] 5.8 10*3/uL 3.6 - 10.7 10*3/uL [facility] Comprehensive metabolic 1998 panelon 07-23-2022 Albumin [Mass/Vol] 4.2 g/dL 3.5 - 5.0 g/dL [facility] ALP [Catalytic activity/Vol] 126 U/L 38 - 126 U/L [facility] ALT [Catalytic activity/Vol] 36 U/L 0 - 49 U/L [facility] Anion gap [Moles/Vol] 1 mmol/L Low 3 - 13 mmol/L [facility] AST [Catalytic activity/Vol] 40 U/L 15 - 46 U/L [facility] Bilirubin [Mass/Vol] 1.0 mg/dL 0.2 - 1 .3 mg/dL [facility] Calcium [Mass/Vol] 8.6 mg/dL 8.4 - 10. 4 mg/dL [facility] Chloride [Moles/Vol] 95 mmol/L Low 98 - 10 7 mmol/L [facility] CO2 [Moles/Vol] 36 mmol/L High 22 - 30 mmol/L [facility] Creatinine [Mass/Vol] 0.77 mg/dL 0.66 - 1.25 mg/dL [facility] GFR/1.73 sq M.predicted MDRD (S/P/Bld) [Vol rate/Area] - PINF [facility] Comment on above: Calculation based on the Chronic Kidney Disease Epidemiology Collaboration (CKD-EPI) equation refit without adjustment for race Glucose [Mass/Vol] 98 mg/dL 70 - 100 mg/dL [facility] Interpretation and review of laboratory results Abnormal [facility] Potassium [Moles/Vol] 4.0 mmol/L 3.5 - 5.1 mmol/L [facility] Protein [Mass/Vol] 7.5 g/dL 6.3 - 8.2 g/dL [facility] Sodium [Moles/Vol] 132 mmol/L Low 135 - 145 mmol/L [facility] Urea nitrogen [Mass/Vol] 10 mg/dL 9 - 20 mg/dL [facility] CBC panel Auto (Bld)Ordered By: Inés Brewer on 07-22-2022 Erythrocyte distribution width (RBC) [Ratio] 15.5 % High 11.5 - 14.5 % [facility] Hematocrit (Bld) [Volume fraction] 47.1 % 40.0 - 52.0 % [facility] Hemoglobin (Bld) [Mass/Vol] 15.6 g/dL 13.0 - 18.0 g/dL [facility] Interpretation and review of laboratory results Abnormal [facility] MCH (RBC) [Entitic mass] 32.8 pg 26. 0 - 34.[address] [facility] MCHC (RBC) [Mass/Vol] 33.2 % 32.0 - 36.0 % [facility] MCV (RBC) [Entitic vol] 98.7 fL High 80.0 - 98.[address] [facility] Platelet mean volume (Bld) [Entitic vol] 6.8 fL Low 7.4 - 12.[address] [facility] Platelets (Bld) [#/Vol] 201 10*3/uL 140 - 440 10*3/uL [facility] RBC (Bld) [#/Vol] 4.77 10*6/uL 4.40 - 5.9 0 10*6/uL [facility] WBC (Bld) [#/Vol] 5.7 10*3/uL 3.6 - 10.7 10*3/uL [facility] Comprehensive metabolic 1998 panelon 07-22-2022 Albumin [Mass/Vol] 4.1 g/dL 3.5 - 5.0 g/dL [facility] ALP [Catalytic activity/Vol] 122 U/L 38 - 126 U/L [facility] ALT [Catalytic activity/Vol] 43 U/L 0 - 49 U/L [facility] Anion gap [Moles/Vol] 7 mmol/L 3 - 13 mmol/L [facility] AST [Catalytic activity/Vol] 49 U/L High 15 - 46 U/L [facility] Bilirubin [Mass/Vol] 0.6 mg/dL 0.2 - 1 .3 mg/dL [facility] Calcium [Mass/Vol] 8.0 mg/dL Low 8.4 - 10. 4 mg/dL [facility] Chloride [Moles/Vol] 100 mmol/L 98 - 10 7 mmol/L [facility] CO2 [Moles/Vol] 26 mmol/L 22 - 30 mmol/L [facility] Creatinine [Mass/Vol] 0.85 mg/dL 0.66 - 1.25 mg/dL [facility] GFR/1.73 sq M.predicted MDRD (S/P/Bld) [Vol rate/Area] - PINF [facility] Comment on above: Calculation based on the Chronic Kidney Disease Epidemiology Collaboration (CKD-EPI) equation refit without adjustment for race Glucose [Mass/Vol] 97 mg/dL 70 - 100 mg/dL [facility] Interpretation and review of laboratory results Abnormal [facility] Potassium [Moles/Vol] 4.0 mmol/L 3.5 - 5.1 mmol/L [facility] Protein [Mass/Vol] 7.3 g/dL 6.3 - 8.2 g/dL [facility] Sodium [Moles/Vol] 133 mmol/L Low 135 - 145 mmol/L [facility] Urea nitrogen [Mass/Vol] 11 mg/dL 9 - 20 mg/dL [facility] Blood type and Crossmatch pa lowell (Bld)on 07-21-2022 ABO group Nom (Bld) A [facility] Blood group antibody screen GEL Ql Negative [facility] D Ag Ql (RBC) Positive [facility] CBC W Auto Differential pane l (Bld)Ordered By: Jacqueline Smith on 07-21-2022 Basophils (Bld) [#/Vol] 0.1 10*3/uL 0.0 - 0.2 10*3/uL [facility] Basophils/100 WBC (Bld) 1.2 % 0.0 - 2.0 % [facility] Eosinophils (Bld) [#/Vol] 0.1 10*3/uL 0.0 - 0.5 10*3/uL [facility] Eosinophils/100 WBC (Bld) 1.2 % 1.0 - 6.0 % [facility] Erythrocyte distribution width (RBC) [Ratio] 15.4 % High 11.5 - 14.5 % [facility] Hematocrit (Bld) [Volume fraction] 46.9 % 40.0 - 52.0 % [facility] Hemoglobin (Bld) [Mass/Vol] 16.0 g/dL 13.0 - 18.0 g/dL [facility] Interpretation and review of laboratory results Abnormal [facility] Lymphocytes (Bld) [#/Vol] 1.9 10*3/uL 1.0 - 4.3 10*3/uL [facility] Lymphocytes/100 WBC (Bld) 31.1 % 20.0 - 40.0 % [facility] MCH (RBC) [Entitic mass] 33.5 pg 26. 0 - 34.[address] [facility] MCHC (RBC) [Mass/Vol] 34.1 % 32.0 - 36.0 % [facility] MCV (RBC) [Entitic vol] 98.4 fL High 80.0 - 98.[address] [facility] Monocytes (Bld) [#/Vol] 0.6 10*3/uL 0.0 - 0.8 10*3/uL [facility] Monocytes/100 WBC (Bld) 9.8 % 2.0 - 10.0 % [facility] Neutrophils (Bld) [#/Vol] 3.5 10*3/uL 1.8 - 7.0 10*3/uL [facility] Neutrophils/100 WBC (Bld) 56.7 % 40.0 - 80.0 % [facility] Nucleated RBC/100 WBC (Bld) [Ratio] 0.1 % [facility] Platelet mean volume (Bld) [Entitic vol] 6.8 fL Low 7.4 - 12.[address] [facility] Platelets (Bld) [#/Vol] 211 10*3/uL 140 - 440 10*3/uL [facility] RBC (Bld) [#/Vol] 4.77 10*6/uL 4.40 - 5.9 0 10*6/uL [facility] WBC (Bld) [#/Vol] 6.2 10*3/uL 3.6 - 10.7 10*3/uL [facility] CT Abdomen and Pelvis W cont sabrina BHARDWAJon 07-21-2022 No acute abdominal o r pelvic findings to explain symptoms. Hepatic steatosis. Sigmoid diverticulosis. Report Dictated on Workstation: [id number] Electronically Signed By: Joon Foley Electronically Signed Date/Time: 07/21/2022 6:02 PM EDT [facility] Patient Name: MARIA DE [...] lymphadenopathy: None. Osseous structures: Lumbar degenerative spondylosis. [facility] Joon Foley DO - 07/21/2022 Patient Name: MARIA DE JESUS HOGAN : 1965 [facility]#: [id number] Exam Date/Time: 07/21/2022 17:53 Procedure: CT ABDOMEN [...] Electronically Signed Date/Time: 07/21/2022 6:02 PM EDT [facility] Rad[facility] Study observation (narrative) [facility] alth CT Abdomen and Pelvis W cont rast IVOrdered By: Joon Foley on 07-21-2022 [employer] Work Phone: Cobalamin (Vitamin B12) [Mas s/Vol]on 07-21-2022 Interpretation and review of laboratory results Normal [facility] Comprehensive metabolic 1998 panelon 07-21-2022 Albumin [Mass/Vol] 4.2 g/dL 3.5 - 5.0 g/dL [facility] ALP [Catalytic activity/Vol] 124 U/L 38 - 126 U/L [facility] ALT [Catalytic activity/Vol] 43 U/L 0 - 49 U/L [facility] Anion gap [Moles/Vol] 11 mmol/L 3 - 13 mmol/L [facility] AST [Catalytic activity/Vol] 56 U/L High 15 - 46 U/L [facility] Bilirubin [Mass/Vol] 0.5 mg/dL 0.2 - 1 .3 mg/dL [facility] Calcium [Mass/Vol] 8.5 mg/dL 8.4 - 10. 4 mg/dL [facility] Chloride [Moles/Vol] 101 mmol/L 98 - 10 7 mmol/L [facility] CO2 [Moles/Vol] 24 mmol/L 22 - 30 mmol/L [facility] Creatinine [Mass/Vol] 0.85 mg/dL 0.66 - 1.25 mg/dL [facility] GFR/1.73 sq M.predicted MDRD (S/P/Bld) [Vol rate/Area] - PINF [facility] Comment on above: Calculation based on the Chronic Kidney Disease Epidemiology Collaboration (CKD-EPI) equation refit without adjustment for race Glucose [Mass/Vol] 98 mg/dL 70 - 100 mg/dL [facility] Interpretation and review of laboratory results Abnormal [facility] Potassium [Moles/Vol] 4.1 mmol/L 3.5 - 5.1 mmol/L [facility] Protein [Mass/Vol] 7.4 g/dL 6.3 - 8.2 g/dL [facility] Sodium [Moles/Vol] 136 mmol/L 135 - 145 mmol/L [facility] Urea nitrogen [Mass/Vol] 8 mg/dL Low 9 - 20 mg/dL [facility] Drug screen panel, emergency on 07-21-2022 Amphetamines Screen method >1000 ng/mL Ql (U) Negative [facility] Barbiturates Screen method >200 ng/mL Ql (U) [facility] Benzod[facility]ines Ql (U) Negative [facility] COCAINE METAB. SCREEN Negative [facility] Methadone Screen Ql (U) Negative [facility] Opiates Screen Ql (U) Negative [facility] oxyCODONE Ql (U) Negative [facility] Phencyclidine Ql (U) Negative [facility] The expected value f or all [...] is needed, request confirmation under separate order. [facility] ECG 12 leadon 07-21-2022 Heart rate 95 /min bpm [facility] P [place] [address] [facility] MI Interval [address] [facility] QRS [place] [address] [facility]val [facility]val [address] [facility] QTC Interval [address] [facility] T Wave [place] [address] [facility] SINUS RHYTHM PROBABLE LEFT ATRIAL ABNORMALITY RSR' IN V1 OR V2, RIGHT VCD OR RVH Compared to ECG 06/06/2021 16:40:22 Electronically Signed On 07-21-2022 21:01:15 EDT by Arsenio Titus DO - 07/21/2022 IMPRESSION: SINUS RHYTHM PROBABLE LEFT ATRIAL ABNORMALITY RSR' IN V1 OR V2, RIGHT VCD OR RVH Compared to ECG 06/06/2021 16:40:22 Electronically Signed On 07-21-2022 21:01:15 EDT by Arsenio Villalta [facility] Ethanol (Bld) [Mass/Vol]on 0 07-21-2022 Ethanol [Mass/Vol] 0.323 g/dL Critically high 0.000 - 0.010 g/dL [facility] Interpretation and review of laboratory results Abnormal [facility] Lipaseon 07-21-2022 Lipase [Catalytic activity/Vol] 209 U/L 23 - 300 U/L [facility] Lipase [Catalytic activity/V ol]on 07-21-2022 Interpretation and review of laboratory results Normal [facility] Magnesiumon 07-21-2022 Magnesium [Mass/Vol] 2.1 mg/dL 1.6 - 2 .3 mg/dL [facility] Magnesium [Mass/Vol]on 07-21 Interpretation and review of laboratory results Normal [facility] No Panel Informationon 07-21 [facility] PT Coag (Bld) [Time]on 07-21 INR Coag (PPP) [Relative time] 0.9 {INR} 0.9 - 1.1 [facility] Comment on above: Recommended Anticoag ulant [...] Interpretation and review of laboratory results Normal [facility] Phosphate [Moles/Vol]on 07-01 Interpretation and review of laboratory results Abnormal [facility] Phosphate [Mass/Vol] 4.6 mg/dL High 2.5 - 4 .5 mg/dL [facility] Protime-INRon 07-21-2022 PT Coag (Bld) [Time] 10.3 s 9.0 - [address] [facility] SARS-CoV-2, Flu A/B, and RSV Comboon 07-21-2022 FLUAV RNA NICOLAS+probe Ql (Resp) Not detected Not Detected [facility] FLUBV RNA NICOLAS+probe Ql (Resp) Not detected Not Detected [facility] Interpretation and review of laboratory results Normal [facility] RSV RNA NICOLAS+probe Ql (Resp) Not detected Not Detected [facility] SARS-CoV-2 (COVID-19) RNA NICOLAS+probe Ql (Resp) Not detected Not Detected [facility] SARS-CoV-2 (COVID-19) RNA NICOLAS+probe Ql (Unsp spec) Methodology: real-time, RT-PCR The SARS-CoV-2, Flu A/B, and RSV Combo assay is intended for in vitro diagnostic use under the FDA Emergency Use Authorization (EUA). This test has not been FDA cleared or approved. In compliance with this authorization, please visit www.fda.gov/media/7907 35/download or www.Vaxxas.gov/media/5077 36/download to access the applicable information sheets. [facility] TSHon 07-21-2022 TSH Qn 2.092 m[IU]/L [facility] h TSH Qnon 07-21-2022 Interpretation and review of laboratory results Normal [facility] Troponin Ion 07-21-2022 Troponin I.cardiac [Mass/Vol] ng/mL 0.000 - 0.034 ng/mL [facility] Troponin I.cardiac [Mass/Vol ]on 07-21-2022 Interpretation and review of laboratory results Normal [facility] Patients with high levels of Biotin oral intake (ie >5 mg/day) may have falsely decreased Troponin levels. [facility] Urinalysis complete panel (U )on 07-21-2022 Bilirubin Ql (U) Negative Negative mg/dL [facility] Clarity (U) Clear Clear [facility] Color (U) Colorless Lt. Yellow [facility] Glucose Ql (U) Normal Normal (<70) mg/dL [facility] Hemoglobin Ql (U) Negative Negative mg/dL [facility] Interpretation and review of laboratory results Abnormal [facility] Ketones (U) [Mass/Vol] Negative Negat shiv mg/dL [facility] Leukocyte esterase Test strip Ql (U) Negative Negative Estefani/uL [facility] Nitrite Ql (U) Negative Negative [facility] th pH (U) 5.0 [pH] 5.0 - 8.[address] [facility] Protein (U) [Mass/Vol] Negative Negat shiv mg/dL [facility] Specific gravity (U) [Rel density] 1.003 Low 1.005 - 1.030 [facility] Urobilinogen (U) [Mass/Vol] Normal Normal (0-1) mg/dL [facility] Vitamin B12on 07-21-2022 Cobalamin (Vitamin B12) [Mass/Vol] 264 pg/mL 239 - 931 pg/mL [facility] XR Lumbar spine 4 Viewson No [...] views. Atherosclerotic calcifications of the abdominal aorta. [facility] Ivett Marcelo MD - 07/10/2022 Patient [...] Electronically Signed Date/Time: 07/10/2022 3:34 PM EDT [employer] XR Lumbar spine 4 ViewsOrder ed By: Ivett Marcelo on 07-10-2022 [employer] Work Phone: CBC W Auto Differential pane l (Bld)Ordered By: Jinny Phelps on 07-09-2022 Basophils (Bld) [#/Vol] 0.1 10*3/uL 0.0 - 0.2 10*3/uL [employer] [facility] Basophils/100 WBC (Bld) 1.1 % 0.0 - 2.0 % [facility] [facility] Eosinophils (Bld) [#/Vol] 0.1 10*3/uL 0.0 - 0.5 10*3/uL [facility] Eosinophils/100 WBC (Bld) 1.9 % 1.0 - 6.0 % [facility] Erythrocyte distribution width (RBC) [Ratio] 14.6 % High 11.5 - 14.5 % [facility] [facility] Hematocrit (Bld) [Volume fraction] 47.4 % 40.0 - 52.0 % [facility] [facility] Hemoglobin (Bld) [Mass/Vol] 16.6 g/dL 13.0 - 18.0 g/dL [facility] [facility] Immature granulocytes (Bld) [#/Vol] 0.0 10*3/uL NINF - 0.0 10*3/uL [facility] Immature granulocytes/100 WBC (Bld) 0.3 % High NINF - 0.0 % [facility] Interpretation and review of laboratory results Abnormal [facility] Lymphocytes (Bld) [#/Vol] 2.3 10*3/uL 1.0 - 4.3 10*3/uL [facility] Lymphocytes/100 WBC (Bld) 36.3 % 20.0 - 40.0 % [facility] MCH (RBC) [Entitic mass] 33.3 pg 26. 0 - 34.0 pg [facility] MCHC (RBC) [Mass/Vol] 35.0 % 32.0 - 36.0 % [facility] MCV (RBC) [Entitic vol] 95.0 fL 80.0 - 98.[address] [facility] Monocytes (Bld) [#/Vol] 0.9 10*3/uL High 0.0 - 0.8 10*3/uL [facility] Monocytes/100 WBC (Bld) 13.9 % High 2.0 - 10.0 % [facility] Neutrophils (Bld) [#/Vol] 2.9 10*3/uL 1.8 - 7.0 10*3/uL [facility] Neutrophils/100 WBC (Bld) 46.5 % 40.0 - 80.0 % [facility] Platelet mean volume (Bld) [Entitic vol] 8.2 fL 7.4 - 12.[address] [facility] Comment on above: MPV is a calculated measurement using platelet volume ratio Platelets (Bld) [#/Vol] 254 10*3/uL 140 - 440 10*3/uL [facility] RBC (Bld) [#/Vol] 4.99 10*6/uL 4.40 - 5.9 0 10*6/uL [facility] WBC (Bld) [#/Vol] 6.3 10*3/uL 3.6 - 10.7 10*3/uL [facility] Comprehensive metabolic 1998 panelon 07-09-2022 Albumin [Mass/Vol] 4.5 g/dL 3.5 - 5.0 g/dL [facility] ALP [Catalytic activity/Vol] 103 U/L 38 - 126 U/L [facility] ALT [Catalytic activity/Vol] 43 U/L 0 - 49 U/L [facility] Anion gap [Moles/Vol] 6 mmol/L 3 - 13 mmol/L [facility] AST [Catalytic activity/Vol] 40 U/L 15 - 46 U/L [facility] Bilirubin [Mass/Vol] 0.4 mg/dL 0.2 - 1 .3 mg/dL [facility] Calcium [Mass/Vol] 8.8 mg/dL 8.4 - 10. 4 mg/dL [facility] Chloride [Moles/Vol] 97 mmol/L Low 98 - 10 7 mmol/L [facility] CO2 [Moles/Vol] 31 mmol/L High 22 - 30 mmol/L [facility] Creatinine [Mass/Vol] 0.74 mg/dL 0.66 - 1.25 mg/dL [facility] GFR/1.73 sq M.predicted MDRD (S/P/Bld) [Vol rate/Area] - PINF [facility] Comment on above: Calculation based on the Chronic Kidney Disease Epidemiology Collaboration (CKD-EPI) equation refit without adjustment for race Glucose [Mass/Vol] 131 mg/dL High 70 - 100 mg/dL [facility] Potassium [Moles/Vol] 4.0 mmol/L 3.5 - 5.1 mmol/L [facility] Protein [Mass/Vol] 7.6 g/dL 6.3 - 8.2 g/dL [facility] Sodium [Moles/Vol] 134 mmol/L Low 135 - 145 mmol/L [facility] Urea nitrogen [Mass/Vol] 6 mg/dL Low 9 - 20 mg/dL [facility] Lipid 1996 panelon 3 Cholesterol [Mass/Vol] 242 mg/dL High NINF - 200 mg/dL [facility] Cholesterol in HDL [Mass/Vol] 70 mg/dL High 40 - 60 mg/dL [facility] Cholesterol in LDL [Mass/Vol] 147 mg/dL High 0 - <100 [facility] Cholesterol.total/Choles terol in HDL [Mass ratio] 3 {ratio} [facility] Comment on above: Ref Range: < 3 Low Risk for CHD 3-6 Mod Risk for CHD > 6 High Risk for CHD Triglyceride [Mass/Vol] 126 mg/dL NINF - 150 mg/dL [facility] No Panel Informationon 07-09 Interpretation and review of laboratory results Abnormal [facility] Radiology Study observation (narrative) [facility] PSA Screeningon 07-09-2022 Interpretation and review of laboratory results Normal [facility] Prostate specific Ag [Mass/Vol] 1.035 ng/mL NINF - 4.000 ng/mL [facility] Testing performed on the [employer] 5600 using an immunometric methodology. Results obtained by different methods should not be used interchangeably. [facility] XR Shoulder - left 2 Viewson 07-09-2022 Negative examination of the shoulder. Report Dictated on Electronically Signed By: Onesimo Trejo Electronically Signed Date/Time: 07/09/2022 3:01 PM [facility] Patient Name: MARIA DE JESUS [...] abnormalities. The left lung apex is clear. [facility] Onesimo Trejo, - 07/09/2022 Patient Name: MARIA [...] Electronically Signed Date/Time: 07/09/2022 3:01 PM EDT [facility] XR Shoulder - left 2 ViewsOr dered By: Onesimo Trejo on 07-09-2022 [facility] Work Phone: Phenobarbitalon 10-28-2021 PHENobarbital [Mass/Vol] 17.4 ug/mL Normal 10.0-40.0 [facility] Comment on above: Performed By: #### P HNO3 #### [employer] [address] [place] [id number] Comp Metabolic Panelon 10-25 ALP [Catalytic activity/Vol] 105 U/L Normal 38-126 [facility] Comment on above: Performed By: #### A DDON #### [facility] [address] [place] [address] ALT [Catalytic activity/Vol] 76 U/L High 0-49 [facility] Comment on above: Result Comment: The ALT test is performed by an updated assay method. Please note that the reference intervals have been changed and are now sex specific. Performed By: #### A DDON #### [facility] [address] [place] [address] Anion gap [Moles/Vol] 10 mmol/L Normal 3-13 [facility] Comment on above: Performed By: #### A DDON #### [facility] [address] [place] [address] AST [Catalytic activity/Vol] 79 U/L High 15-46 [facility] Comment on above: Performed By: #### A DDON #### [facility] [address] [place] [address] Calcium [Mass/Vol] 8.8 mg/dL Normal 8.4-10.4 [facility] Comment on above: Performed By: #### A DDON #### [facility] [address] [place] [address] CO2 [Moles/Vol] 26 mmol/L Normal 22-30 [facility] Comment on above: Performed By: #### A DDON #### [facility] [address] [place] [address] Glucose [Mass/Vol] 89 mg/dL Normal 70-100 [facility] Comment on above: Performed By: #### A DDON #### [facility] [address] [place] [address] Protein [Mass/Vol] 7.2 g/dL Normal 6.3-8.2 [facility] Comment on above: Performed By: #### A DDON #### [facility] [address] [place] [address] Urea nitrogen [Mass/Vol] 2 mg/dL Low 7-17 [facility] Comment on above: Performed By: #### A DDON #### [facility] [address] [place] [address] Bilirubin [Mass/Vol] 0.4 mg/dL Normal 0.2-1.3 [facility] Comment on above: Performed By: #### A DDON #### [facility] [address] [place] [address] Creatinine [Mass/Vol] 0.62 mg/dL Normal 0.52-1.25 [facility] Comment on above: Performed By: #### A DDON #### [facility] [address] [place] [address] eGFR OTHER > 90.0 Normal >60 [facility] Comment on above: Result Comment: KDIG O [...] secretion. Performed By: #### A DDON #### [facility] [address] [place] [place] [address] GFR/1.73 sq M.predicted among blacks MDRD (S/P/Bld) [Vol rate/Area] mL/min/{1.73_m2} Normal >60 [facility] Comment on above: Performed By: #### A DDON #### [facility] [address] [place] [address] Albumin [Mass/Vol] 4.3 g/dL Normal 3.5-5.0 [facility] Comment on above: Performed By: #### A DDON #### [facility] [address] [place] [address] Chloride [Moles/Vol] 103 mmol/L Normal 98-107 [facility] Comment on above: Performed By: #### A DDON #### [facility] [address] [place] [address] Potassium [Moles/Vol] 4.2 mmol/L Normal 3.5-5.1 [facility] Comment on above: Performed By: #### A DDON #### [facility] [address] [place] [address] Sodium [Moles/Vol] 139 mmol/L Normal 135-145 [facility] Comment on above: Performed By: #### A DDON #### [facility] [address] [place] [address] Complete Urinalysison 2021 Appearance (U) Clear Normal Clear [facility] Comment on above: Result Comment: . Performed By: #### A DDON #### [facility] [address] [place] [address] Bilirubin,Urine Negative Normal Negative [facility] Comment on above: Result Comment: . Performed By: #### A DDON #### [facility] [address] [place] [address] Color (U) Colorless Normal Lt. Yellow [facility] Comment on above: Result Comment: . Performed By: #### A DDON #### [facility] [address] [place] [address] Glucose Ql (U) Normal Normal Normal (<70) [facility] Comment on above: Result Comment: . Performed By: #### A DDON #### [facility] [address] [place] [address] Ketone,Urine Negative Normal Negative [facility] Comment on above: Result Comment: . Performed By: #### A DDON #### [facility] [address] [place] [address] Leukocytes,Urine Negative Normal Negative [facility] Comment on above: Result Comment: . Performed By: #### A DDON #### [facility] [address] [place] [address] Nitrites,Urine Negative Normal Negative [facility] Comment on above: Result Comment: . Performed By: #### A DDON #### [facility] [address] [place] [address] Occult Blood,Urine Negative Normal Negative [facility] Comment on above: Result Comment: . Performed By: #### A DDON #### [facility] [address] [place] [address] pH,Urine 5.5 Normal 5.0-8.0 [facility] Comment on above: Result Comment: . Performed By: #### A DDON #### [facility] [address] [place] [address] Specific [place],Urine < 1.005 Abnormal 1.005 - 1.030 [facility] Comment on above: Result Comment: . Performed By: #### A DDON #### [facility] [address] [place] [address] Total Protein,Urine Negative Normal Negative [facility] Comment on above: Result Comment: . Performed By: #### A DDON #### [facility] [address] [place] [address] Urobilinogen,Urine Normal Normal Normal (0-1) [facility] Comment on above: Result Comment: . Performed By: #### A DDON #### [facility] [address] [place] [address] Drugs of Abuseon 10-25-2021 Opiates, Ur Negative Normal [facility] Comment on above: Performed By: #### A DDON #### [facility] [address] [place] [address] Phencyclidine (PCP), Ur Negative Normal [facility] [...] order. Performed By: #### A DDON #### [facility] [address] [place] [address] Methadone, Ur Negative Normal [facility] Comment on above: Performed By: #### A DDON #### [facility] [address] [place] [address] Benzodiazepines, Ur Negative Normal [facility] Comment on above: Performed By: #### A DDON #### [facility] [address] [place] [address] Cocaine, Ur Negative Normal [facility] Comment on above: Performed By: #### A DDON #### [facility] [address] [place] [address] Barbiturates, Ur Negative Normal [facility] Comment on above: Performed By: #### A DDON #### [facility] [address] [place] [address] Amphetamines, Ur Negative Normal [facility] Comment on above: Performed By: #### A DDON #### [facility] [address] [place] [address] Oxycodone/Oxymorphine,Ur Negative Normal [facility] Comment on above: Performed By: #### A DDON #### [address] [place] [address] ED Provider Noteon 2 ED Provider Note Emergency Department Encounter [facility] ED Patient: Maria De Jesus Hogan [...] with plan for inpatient detox admission at [facility] pending bed availability, patient in agreement with [...] occasionally words are mis-transcribed.) Harjinder Saeed MD [employer] Harjinder Saeed MD 10/25/211918 [facility] ED Provider Note Janis HOYT ED eMERGENCY [...] 9-10 per day Drug use: No SCREENINGS [place] Coma Scale Eye Opening: Spontaneous Best Verbal [...] reviewed. Constitutio (more content not included)... Normal [facility] Ethanol Serum/Plasmaon 10-25 Ethanol-Serum/Plasma 0.393 g/dL Critically high 0.000-0.01 0 [facility] Comment on above: Result Comment: NOTE : This result is for medical treatment only. Analysis performed using non-forensic procedures. Performed By: #### A DDON #### [facility] [address] [place] [address] Hemogram w/ Autodiffon 10-25 Abs Baso Cnt 0.0 10*3/uL Normal 0.0-0.2 [facility] Comment on above: Performed By: #### A DDON #### [facility] [address] [place] [address] Abs Neutrophile Cnt 2.2 10*3/uL Normal 1.8-7.0 [facility] Comment on above: Performed By: #### A DDON #### [facility] [address] [place] [address] Basophils/100 WBC (Bld) 1.0 % Normal 0.0-2.0 [facility] Comment on above: Performed By: #### A DDON #### [facility] [address] [place] [address] Eosinophils (Bld) [#/Vol] 0.1 10*3/uL Normal 0.0-0.5 [facility] Comment on above: Performed By: #### A DDON #### [facility] [address] [place] [address] Eosinophils/100 WBC (Bld) 1.9 % Normal 1.0-6.0 [facility] Comment on above: Performed By: #### A DDON #### [facility] [address] [place] [address] Erythrocyte distribution width (RBC) [Ratio] 14.0 % Normal 11.5-14.5 [facility] Comment on above: Performed By: #### A DDON #### [facility] [address] [place] [address] Granulocytes/100 WBC (Bld) 45.6 % Normal 40.0-80.0 [facility] Comment on above: Performed By: #### A DDON #### [facility] [address] [place] [address] Hematocrit (Bld) [Volume fraction] 46.1 % Normal 40.0-52.0 [facility] Comment on above: Performed By: #### A DDON #### [facility] [address] [place] [address] Hemoglobin (Bld) [Mass/Vol] 15.7 g/dL Normal 13.0-18.0 [facility] Comment on above: Performed By: #### A DDON #### [facility] [address] [place] [address] Lymphocytes (Bld) [#/Vol] 1.8 10*3/uL Normal 1.0-4.3 [facility] Comment on above: Performed By: #### A DDON #### [facility] [address] [place] [address] Lymphocytes/100 WBC (Bld) 38.9 % Normal 20.0-40.0 [facility] Comment on above: Performed By: #### A DDON #### [facility] [address] [place] [address] MCH (RBC) [Entitic mass] 33.8 pg Normal 26.0-34.0 [facility] Comment on above: Performed By: #### A DDON #### [facility] [address] [place] [address] MCHC 34.0 % Normal 32.0-36.0 [facility] Comment on above: Performed By: #### A DDON #### [facility] [address] [place] [address] MCV (RBC) [Entitic vol] 99.1 fL High 80.0-98.0 [facility] Comment on above: Performed By: #### A DDON #### [facility] [address] [place] [address] Monocytes (Bld) [#/Vol] 0.6 10*3/uL Normal 0.0-0.8 [facility] Comment on above: Performed By: #### A DDON #### [facility] [address] [place] [address] Monocytes/100 WBC (Bld) 12.6 % High 2.0-10.0 [facility] Comment on above: Performed By: #### A DDON #### [facility] [address] [place] [address] Platelet mean volume (Bld) [Entitic vol] 6.8 fL Low 7.4-12.4 [facility] Comment on above: Result Comment: MPV is a calculated measurement using platelet volume ratio. Performed By: #### A DDON #### [facility] [address] [place] [address] Platelets (Bld) [#/Vol] 170 10*3/uL Normal 140-440 [facility] Comment on above: Performed By: #### A DDON #### [facility] [address] [place] [address] RBC (Bld) [#/Vol] 4.65 10*6/uL Normal 4.40-5.90 [facility] Comment on above: Performed By: #### A DDON #### [facility] [address] [place] [address] WBC (Bld) [#/Vol] 4.7 10*3/uL Normal 3.6-10.7 [facility] Comment on above: Performed By: #### A DDON #### [facility] [address] [place] [address] SARS-CoV-2 Antigenon 022 SARS-CoV-2 Antigen Negative Normal Negative [facility] Comment on above: Result Comment: A negative result does not rule out the possibility of SARS-CoV-2 infection. NAAT-based methods should be considered for symptomatic patients presenting greater than seven days after onset of symptoms. Method: Lateral flow immunoassay. Fact sheets for healthcare providers and patients can be found at the following sites: https://www.Vaxxas.gov/media/216523/download https://www.Vaxxas.gov/media/455744/download Performed By: #### A DDON #### [facility] [address] [place] [address] CBC with Auto Differentialon 09-29-2021 Absolute Baso [...] [Mass/Vol] 14.5 g/dL 13.0 - 18.0 g/dL [facility] Interpretation and review of laboratory results Abnormal [...] 11.1 % High 2.0 - 10.0 % [facility] Platelet distribution width (Bld) [Ratio] 14.3 % 11.5 - 14.5 % [facility] Platelet mean volume (Bld) [Entitic vol] 7.6 fL 7.4 - 12.[address] [facility] Comment on above: MPV is a calculated measurement using platelet volume ratio. Platelets (Bld) [#/Vol] 139 10*3/uL Low 140 - 440 10*3/uL [facility] RBC (Bld) [#/Vol] 4.28 10*6/uL Low 4.40 - 5.9 0 10*6/uL [facility] WBC (Bld) [#/Vol] 4.0 10*3/uL 3.6 - 10.7 10*3/uL [facility] Test Performed by [facility], [address] [place], [place] [address] [facility] Comp Metabolic Panelon 09-29 Anion gap [Moles/Vol] 5 mmol/L Normal 3-13 [facility] Comment on above: Performed By: #### H GHCT #### [facility] [address] [place] [address] Chloride [Moles/Vol] 96 mmol/L Low 98-107 [facility] Comment on above: Performed By: #### H GHCT #### [facility] [address] [place] [address] ALP [Catalytic activity/Vol] 95 U/L Normal 38-126 [facility] Comment on above: Performed By: #### H GHCT #### [facility] [address] [place] [address] ALT [Catalytic activity/Vol] 140 U/L High 0-49 [facility] Comment on above: Result Comment: The ALT test is performed by an updated assay method. Please note that the reference intervals have been changed and are now sex specific. Performed By: #### H GHCT #### [facility] [address] [place] [address] AST [Catalytic activity/Vol] 133 U/L High 15-46 [facility] Comment on above: Performed By: #### H GHCT #### [facility] [address] [place] [address] Bilirubin [Mass/Vol] 0.9 mg/dL Normal 0.2-1.3 [facility] Comment on above: Performed By: #### H GHCT #### [facility] [address] [place] [address] Calcium [Mass/Vol] 8.5 mg/dL Normal 8.4-10.4 [facility] Comment on above: Performed By: #### H GHCT #### [facility] [address] [place] [address] Glucose [Mass/Vol] 99 mg/dL Normal 70-100 [facility] Comment on above: Performed By: #### H GHCT #### [facility] [address] [place] [address] Protein [Mass/Vol] 6.8 g/dL Normal 6.3-8.2 [facility] Comment on above: Performed By: #### H GHCT #### [facility] [address] [place] [address] Urea nitrogen [Mass/Vol] mg/dL Low 7-17 [facility] Comment on above: Performed By: #### H GHCT #### [facility] [address] [place] [address] CO2 [Moles/Vol] 34 mmol/L High 22-30 [facility] Comment on above: Performed By: #### H GHCT #### [facility] [address] [place] [address] Creatinine [Mass/Vol] 0.61 mg/dL Normal 0.52-1.25 [facility] Comment on above: Performed By: #### H GHCT #### [facility] [address] [place] [address] eGFR OTHER > 90.0 Normal >60 [facility] Comment on above: Result Comment: KDIG O [...] secretion. Performed By: #### H GHCT #### [facility] [address] [place] [address] GFR/1.73 sq M.predicted among blacks MDRD (S/P/Bld) [Vol rate/Area] mL/min/{1.73_m2} Normal >60 [facility] Comment on above: Performed By: #### H GHCT #### [facility] [address] [place] [address] Potassium [Moles/Vol] 4.0 mmol/L Normal 3.5-5.1 [facility] Comment on above: Performed By: #### H GHCT #### [facility] [address] [place] [address] Sodium [Moles/Vol] 133 mmol/L Low 135-145 [facility] Comment on above: Performed By: #### H GHCT #### [facility] [address] [place] [address] Albumin [Mass/Vol] 4.1 g/dL Normal 3.5-5.0 [facility] Comment on above: Performed By: #### H GHCT #### [facility] [address] [place] [address] Comprehensive Metabolic Pane arnulfo 09-29-2021 Albumin [Mass/Vol] 4.1 g/dL 3.5 - 5.0 g/dL [facility] ALP (Bld) [Catalytic activity/Vol] 95 U/L 38 - 126 U/L [facility] ALT [Catalytic activity/Vol] 140 U/L High 0 - 49 U/L [facility] Comment on above: The ALT test is [...] - 1.25 mg/dL [facility] EGFR IF NonAfrican Cambodian >90.0 >60 mL/min [facility] Comment on above: [...] 133 mmol/L Low 135 - 145 mmol/L [facility] Urea nitrogen (BldV) [Mass/Vol] <2 Low 7 - 17 mg/dL [facility] Test Performed by [facility], [address], [place], [place] [id number] [place] [address] LAB [facility] Hemogram w/ Autodiffon 09-29 Abs Baso Cnt 0.0 10*3/uL Normal 0.0-0.2 [facility] Comment on above: Performed By: #### A DDON #### [facility] [address] [place] [address] Abs Neutrophile Cnt 2.1 10*3/uL Normal 1.8-7.0 [facility] Comment on above: Performed By: #### A DDON #### [facility] [address] [place] [address] Basophils/100 WBC (Bld) 1.0 % Normal 0.0-2.0 [facility] Comment on above: Performed By: #### A DDON #### [facility] [address] [place] [address] Eosinophils (Bld) [#/Vol] 0.1 10*3/uL Normal 0.0-0.5 [facility] Comment on above: Performed By: #### A DDON #### [facility] [address] [place] [address] Eosinophils/100 WBC (Bld) 2.6 % Normal 1.0-6.0 [facility] Comment on above: Performed By: #### A DDON #### [facility] [address] [place] [address] Erythrocyte distribution width (RBC) [Ratio] 14.3 % Normal 11.5-14.5 [facility] Comment on above: Performed By: #### A DDON #### [facility] [address] [place] [address] Granulocytes/100 WBC (Bld) 52.6 % Normal 40.0-80.0 [facility] Comment on above: Performed By: #### A DDON #### [facility] [address] [place] [address] Hematocrit (Bld) [Volume fraction] 42.3 % Normal 40.0-52.0 [facility] Comment on above: Performed By: #### A DDON #### [facility] [address] [place] [address] Hemoglobin (Bld) [Mass/Vol] 14.5 g/dL Normal 13.0-18.0 [facility] Comment on above: Performed By: #### A DDON #### [facility] [address] [place] [address] Lymphocytes (Bld) [#/Vol] 1.3 10*3/uL Normal 1.0-4.3 [facility] Comment on above: Performed By: #### A DDON #### [facility] [address] [place] [address] Lymphocytes/100 WBC (Bld) 32.7 % Normal 20.0-40.0 [facility] Comment on above: Performed By: #### A DDON #### [facility] [address] [place] [address] MCH (RBC) [Entitic mass] 33.8 pg Normal 26.0-34.0 [facility] Comment on above: Performed By: #### A DDON #### [facility] [address] [place] [address] MCHC 34.2 % Normal 32.0-36.0 [facility] Comment on above: Performed By: #### A DDON #### [facility] [address] [place] [address] MCV (RBC) [Entitic vol] 98.8 fL High 80.0-98.0 [facility] Comment on above: Performed By: #### A DDON #### [facility] [address] [place] [address] Monocytes (Bld) [#/Vol] 0.4 10*3/uL Normal 0.0-0.8 [facility] Comment on above: Performed By: #### A DDON #### [facility] [address] [place] [address] Monocytes/100 WBC (Bld) 11.1 % High 2.0-10.0 [facility] Comment on above: Performed By: #### A DDON #### [facility] [address] [place] [address] Platelet mean volume (Bld) [Entitic vol] 7.6 fL Normal 7.4-12.4 [facility] Comment on above: Result Comment: MPV is a calculated measurement using platelet volume ratio. Performed By: #### A DDON #### [facility] [address] [place] [address] Platelets (Bld) [#/Vol] 139 10*3/uL Low 140-440 [facility] Comment on above: Performed By: #### A DDON #### [facility] [address] [place] [address] RBC (Bld) [#/Vol] 4.28 10*6/uL Low 4.40-5.90 [facility] Comment on above: Performed By: #### A DDON #### [facility] [address] [place] [address] WBC (Bld) [#/Vol] 4.0 10*3/uL Normal 3.6-10.7 [facility] Comment on above: Performed By: #### A DDON #### [facility] [address] [place] [address] Hepatic Functionon Bilirubin.indirect [Mass/Vol] 0.0 mg/dL Normal 0.0-0.3 [facility] Comment on above: Performed By: #### A DDON #### [facility] [address] [place] [address] Hepatic Function Panelon Bilirubin.indirect [Mass/Vol] 0.0 mg/dL 0.0 - 0.3 mg/dL [facility] Test Performed by [facility], [address] [place], [place], [place] [address] [facility] Phenobarbitalon 09-29-2021 PHENobarbital [Mass/Vol] 15.1 ug/mL Normal 10.0-40.0 [facility] Comment on above: Performed By: #### H GHCT #### [facility] [address] [place] [address] Phenobarbital Levelon 2021 PHENobarbital [Mass/Vol] 15.1 ug/mL 10. 0 - 40.0 ug/mL [facility] Test Performed by [facility], [address] [place] [address] [facility] APTTon 09-27-2021 aPTT Coag (Bld) [Time] 26.3 s Normal 20.0-30.5 [facility] Comment on above: Result Comment: NOTE : The therapeutic time for Heparin anticoagulation, based on Xa activity inhibition, is an APTT of 46-80 seconds. Performed By: #### C OVAG #### [facility] [address] [place] [address] aPTT Coag (Bld) [Time] 26.3 s 20.0 - 30.5 s [facility] Comment on above: NOTE: The therapeuti c time for Heparin anticoagulation, based on Xa activity inhibition, is an APTT of 46-80 seconds. Test Performed by [facility], [address], [place], [place] [address] [facility] LAB [facility] Ferritinon 09-27-2021 Ferritin [Mass/Vol] 669 ng/mL High 18-464 [facility] Comment on above: Performed By: #### A DDON #### [facility] [address] [place] [address] Ferritin [Mass/Vol] 669 ng/mL High 18 - 464 ng/mL [facility] Interpretation and review of laboratory results Abnormal [facility] Test Performed by [facility], [address], [place], [place] [address] [facility] LAB [facility] HM ENDOSCOPY REPORTon 2021 Ordered by an unspecified provider. [facility] Hemoglobin AND Hematocriton 09-27-2021 Hematocrit (Bld) [Volume fraction] 43.0 % Normal 40.0-52.0 [facility] Comment on above: Performed By: #### H GHCT #### [facility] [address] [place] [address] Hemoglobin (Bld) [Mass/Vol] 14.7 g/dL Normal 13.0-18.0 [facility] Comment on above: Performed By: #### H GHCT #### [facility] [address] [place] [address] Hemoglobin and Hematocriton 09-27-2021 Hematocrit (Bld) [Volume fraction] 43.0 % 40.0 - 52.0 % [facility] Hemoglobin (Bld) [Mass/Vol] 14.7 g/dL 13.0 - 18.0 g/dL [facility] Test Performed by [facility], [address] [place] [address] [facility] Iron AND TIBCon 09-27-2021 Saturation 50 % Normal 15-50 [facility] Comment on above: Performed By: #### C OVAG #### [facility] [address] [place] [address] Total Iron Binding Cap. 191 ug/dL Low 261-497 [facility] Comment on above: Performed By: #### C OVAG #### [facility] [address] [place] [address] Iron, Total 95 ug/dL Normal 49-181 [facility] Comment on above: Performed By: #### C OVAG #### [facility] [address] [place] [address] Iron and TIBCon 09-27-2021 Interpretation and review of laboratory results Abnormal [facility] Iron [Mass/Vol] 95 ug/dL 49 - 181 ug/dL [facility] Sat 50 % 15 - 50 % [facility] TIBC 191 ug/dL Low 261 - 497 ug/dL [facility] Test Performed by [facility], [address] [place] [address] [facility] Lactic Acidon 09-27-2021 Lactate [Moles/Vol] 1.4 mmol/L Normal 0.7-2.0 [facility] Comment on above: Performed By: #### A DDON #### [facility] [address] [place] [address] Lactate [Moles/Vol] 1.4 mmol/L 0.7 - 2. 0 mmol/L [facility] Test Performed by [facility] [address] [place], [place] [address] [facility] CBC with Auto Differentialon 09-26-2021 [...] [#/Vol] 189 10*3/uL 140 - 440 10*3/uL [facility] RBC (Bld) [#/Vol] 4.95 10*6/uL 4.40 - 5.9 0 10*6/uL [facility] WBC (Bld) [#/Vol] 4.2 10*3/uL 3.6 - 10.7 10*3/uL [facility] CR Chest Portableon 09-27-19 22 CR Chest Portable Patient Name: MARIA DE JESUS HOGAN Diagnostic Radiology ACCESSION EXAM DATE/TIME PROCEDURE ORDERING PROVIDER [id number] 09/26/2021 19:48 EDT CR Chest Portable [id number] DIPESH MCKEON CPT code 72318 Reason For Exam (CR Chest Portable) epigastric [...] Transcribed Date and Time: 09/26/2021 7:59 Normal [facility] Comp Metabolic Panelon 09-26 ALP [Catalytic activity/Vol] 120 U/L Normal 38-126 [facility] Comment on above: Performed By: #### H GHCT #### [facility] [address] [place] [address] ALT [Catalytic activity/Vol] 156 U/L High 0-49 [facility] Comment on above: Result Comment: The ALT test is performed by an updated assay method. Please note that the reference intervals have been changed and are now sex specific. Performed By: #### H GHCT #### [facility] [address] [place] [address] Anion gap [Moles/Vol] 15 mmol/L High 3-13 [facility] Comment on above: Performed By: #### H GHCT #### [facility] [address] [place] [address] AST [Catalytic activity/Vol] 159 U/L High 15-46 [facility] Comment on above: Performed By: #### H GHCT #### [facility] [address] [place] [address] Bilirubin [Mass/Vol] 0.6 mg/dL Normal 0.2-1.3 [facility] Comment on above: Performed By: #### H GHCT #### [facility] [address] [place] [address] Calcium [Mass/Vol] 9.4 mg/dL Normal 8.4-10.4 [facility] Comment on above: Performed By: #### H GHCT #### [facility] [address] [place] [address] CO2 [Moles/Vol] 24 mmol/L Normal 22-30 [facility] Comment on above: Performed By: #### H GHCT #### [facility] [address] [place] [address] Glucose [Mass/Vol] 95 mg/dL Normal 70-100 [facility] Comment on above: Performed By: #### H GHCT #### [facility] [address] [place] [address] Protein [Mass/Vol] 7.5 g/dL Normal 6.3-8.2 [facility] Comment on above: Performed By: #### H GHCT #### [facility] [address] [place] [address] Urea nitrogen [Mass/Vol] 5 mg/dL Low 7-17 [facility] Comment on above: Performed By: #### H GHCT #### [facility] [address] [place] [address] Creatinine [Mass/Vol] 0.64 mg/dL Normal 0.52-1.25 [facility] Comment on above: Performed By: #### H GHCT #### [facility] [address] [place] [address] eGFR OTHER > 90.0 Normal >60 [facility] Comment on above: Result Comment: KDIG O [...] secretion. Performed By: #### H GHCT #### [facility] [address] [place] [address] GFR/1.73 sq M.predicted among blacks MDRD (S/P/Bld) [Vol rate/Area] mL/min/{1.73_m2} Normal >60 [facility] Comment on above: Performed By: #### H GHCT #### [facility] [address] [place] [address] Potassium [Moles/Vol] 4.0 mmol/L Normal 3.5-5.1 [facility] Comment on above: Performed By: #### H GHCT #### [facility] [address] [place] [address] Albumin [Mass/Vol] 4.6 g/dL Normal 3.5-5.0 [facility] Comment on above: Performed By: #### H GHCT #### [facility] [address] [place] [address] Chloride [Moles/Vol] 94 mmol/L Low 98-107 [facility] Comment on above: Performed By: #### H GHCT #### [facility] [address] [place] [address] Sodium [Moles/Vol] 133 mmol/L Low 135-145 [facility] Comment on above: Performed By: #### H GHCT #### [facility] [address] [place] [address] Comprehensive Metabolic Pane arnulfo 09-26-2021 Albumin [Mass/Vol] [...] - 1.25 mg/dL [facility] EGFR IF NonAfrican Cambodian >90.0 >60 mL/min [facility] Comment on above: [...] [Mass/Vol] 95 mg/dL 70 - 100 mg/dL [facility] Interpretation and review of laboratory results Abnormal [facility] Potassium [Moles/Vol] 4.0 mmol/L 3.5 - 5.1 mmol/L [facility] Sodium [Moles/Vol] 133 mmol/L Low 135 - 145 mmol/L [facility] Urea nitrogen (BldV) [Mass/Vol] 5 mg/dL Low 7 - 17 mg/dL [facility] Ethanolon 09-26-2021 Ethanol Lvl 0.346 g/dL Critically high 0.000 - 0.010 g/dL [facility] Comment on above: NOTE: This result is for medical treatment only. Analysis performed using non-forensic procedures. Interpretation and review of laboratory results Abnormal [facility] Ethanol Serum/Plasmaon 09-26 Ethanol-Serum/Plasma 0.346 g/dL Critically high 0.000-0.01 0 [facility] Comment on above: Result Comment: NOTE : This result is for medical treatment only. Analysis performed using non-forensic procedures. Performed By: #### H GHCT #### [facility] [address] [place] [address] Hemogram w/ Autodiffon 09-26 Abs Baso Cnt 0.1 10*3/uL Normal 0.0-0.2 [facility] Comment on above: Performed By: #### H GHCT #### [facility] [address] [place] [address] Abs Neutrophile Cnt 2.0 10*3/uL Normal 1.8-7.0 [facility] Comment on above: Performed By: #### H GHCT #### [facility] [address] [place] [address] Basophils/100 WBC (Bld) 1.7 % Normal 0.0-2.0 [facility] Comment on above: Performed By: #### H GHCT #### [facility] [address] [place] [address] Eosinophils (Bld) [#/Vol] 0.0 10*3/uL Normal 0.0-0.5 [facility] Comment on above: Performed By: #### H GHCT #### [facility] [address] [place] [address] Eosinophils/100 WBC (Bld) 0.7 % Low 1.0-6.0 [facility] Comment on above: Performed By: #### H GHCT #### [facility] [address] [place] [address] Erythrocyte distribution width (RBC) [Ratio] 13.3 % Normal 11.5-14.5 [facility] Comment on above: Performed By: #### H GHCT #### [facility] [address] [place] [address] Granulocytes/100 WBC (Bld) 46.7 % Normal 40.0-80.0 [facility] Comment on above: Performed By: #### H GHCT #### [facility] [address] [place] [address] Hematocrit (Bld) [Volume fraction] 45.9 % Normal 40.0-52.0 [facility] Comment on above: Performed By: #### H GHCT #### [facility] [address] [place] [address] Hemoglobin (Bld) [Mass/Vol] 16.8 g/dL Normal 13.0-18.0 [facility] Comment on above: Performed By: #### H GHCT #### [facility] [address] [place] [address] Lymphocytes (Bld) [#/Vol] 1.5 10*3/uL Normal 1.0-4.3 [facility] Comment on above: Performed By: #### H GHCT #### [facility] [address] [place] [place] [address] Lymphocytes/100 WBC (Bld) 34.8 % Normal 20.0-40.0 [facility] Comment on above: Performed By: #### H GHCT #### [facility] [address] [place] [address] MCH (RBC) [Entitic mass] 33.9 pg Normal 26.0-34.0 [facility] Comment on above: Performed By: #### H GHCT #### [facility] [address] [place] [address] MCHC 36.6 % High 32.0-36.0 [facility] Comment on above: Performed By: #### H GHCT #### [facility] [address] [place] [address] MCV (RBC) [Entitic vol] 92.7 fL Normal 80.0-98.0 [facility] Comment on above: Performed By: #### H GHCT #### [facility] [address] [place] [address] Monocytes (Bld) [#/Vol] 0.7 10*3/uL Normal 0.0-0.8 [facility] Comment on above: Performed By: #### H GHCT #### [facility] [address] [place] [address] Monocytes/100 WBC (Bld) 16.1 % High 2.0-10.0 [facility] Comment on above: Performed By: #### H GHCT #### [facility] [address] [place] [address] Platelet mean volume (Bld) [Entitic vol] 8.8 fL Normal 7.4-12.4 [facility] Comment on above: Result Comment: MPV is a calculated measurement using platelet volume ratio. Performed By: #### H GHCT #### [facility] [address] [place] [address] Platelets (Bld) [#/Vol] 189 10*3/uL Normal 140-440 [facility] Comment on above: Performed By: #### H GHCT #### [facility] [address] [place] [address] RBC (Bld) [#/Vol] 4.95 10*6/uL Normal 4.40-5.90 [facility] Comment on above: Performed By: #### H GHCT #### [facility] [address] [place] [address] WBC (Bld) [#/Vol] 4.2 10*3/uL Normal 3.6-10.7 [facility] Comment on above: Performed By: #### H GHCT #### [facility] [address] [place] [address] Lactic Acidon 09-26-2021 Lactate [Moles/Vol] 3.2 mmol/L Critically high 0.7-2.0 [facility] Comment on above: Performed By: #### H GHCT #### [facility] [address] [place] [address] Interpretation and review of laboratory results Abnormal [facility] Lactate [Moles/Vol] 3.2 mmol/L Critically high 0.7 - 2.0 mmol/L [facility] Lipaseon 09-26-2021 Lipase [Catalytic activity/Vol] 135 U/L Normal 23-300 [facility] Comment on above: Performed By: #### H GHCT #### [facility] [address] [place] [address] Lipase [Catalytic activity/Vol] 135 U/L 23 - 300 U/L [facility] Magnesiumon 09-26-2021 Magnesium [Mass/Vol] 1.8 mg/dL Normal 1.6-2.3 [facility] Comment on above: Performed By: #### H GHCT #### [facility] [address] [place] [address] Magnesium [Mass/Vol] 1.8 mg/dL 1.6 - 2 .3 mg/dL [facility] No Panel Informationon 09-26 Test Performed by [facility], [address] , [place], [place] [id number] [place] [address] LAB [facility] Prothrombin Timeon 2 INR 1.0 Normal 0.9-1.1 [facility] Comment on above: Result Comment: Abraham mmended [...] Infarction Performed By: #### H GHCT #### [facility] [address] [place] [address] PT Coag (PPP) [Time] 10.3 s Normal 9.0-12.0 [facility] Comment on above: Result Comment: . Performed By: #### H GHCT #### [facility] [address] [place] [address] Protime-INRon 09-26-2021 INR Coag (Bld) [Relative time] 1.0 {INR} [facility] Comment on above: Recommended Anticoag ulant Therapy: [...] 10.3 s 9.0 - 1 2.0 s [facility] Comment on above: . TS GELon 09-26-2021 TS GEL ABO Group: A Rh, Gel: POS Antibody Screen Gel: NEG Normal [facility] Comment on above: Performed By: #### C UA2 #### [facility] [address] [place] [address] TYPE AND SCREENon 09-26-2021 ABO Grouping A [facility] Rh Type Positive [facility] Troponin Ion 09-26-2021 Troponin I.cardiac [Mass/Vol] ng/mL Normal 0.000-0.034 [facility] Comment on above: Result Comment: . Performed By: #### H GHCT #### [facility] [address] [place] [address] Troponin x1on 09-26-2021 Troponin I.cardiac [Mass/Vol] ng/mL 0.000 - 0.034 ng/mL [facility] Comment on above: . XR CHEST PORTABLEon 09-27-19 Patient Name: MARIA DE JESUS HOGAN Diagnostic Radiology ACCESSION EXAM DATE/TIME PROCEDURE ORDERING PROVIDER [id number] 09/26/2021 19:48 EDT CR Chest Portable [id number] -DIPESH BECKMAN CPT code 85816 Reason For Exam (CR Chest Portable) epigastric [...] WILLIAM Transcribed Date and Time: 09/26/2021 7:59 [facility] RAD Ubaldo Gay MD - 09/26/2021 Patient Name: MARIA DE JESUS HOGAN Diagnostic Radiology ACCESSION EXAM DATE/TIME PROCEDURE ORDERING PROVIDER [id number] 09/26/2021 19:48 EDT CR Chest Portable [id number] -DIPESH BECKMAN CPT code 42486 Reason For Exam (CR Chest Portable) epigastric [...] WILLIAM Transcribed Date and Time: 09/26/2021 7:59 [facility] Work Phone: Radiology Study observation (narrative) [facility] Work Phone: XR CHEST PORTABLEOrdered By: Ubaldo Gay on 09-26-2021 [facility] Work Phone: Surgical Pathologyon 022 Surgical Pathology Report SEE BELOW [facility] 1 [id number] [facility] PATHOLOGY AND LABORATORY MEDICINE [address] [place] [address] FINAL SURGICAL PATHOLOGY REPORT NAME: MARIA DE JESUS HOGAN : 1965 55 [address] ORR NO.: [id number] LOCATION: 4[place] 1437 01 PROCEDURE 06/08/2021 DATE: SURGEON: JAZMÍN WEI MD RECEIVED 06/08/2021 DATE: ATTENDING: ROB LOPEZ D.O. REPORT DATE: 06/09/2021 COPIES TO: DIAGNOSIS: ESOPHAGUS, DISTAL, BIOPSY - SQUAMOUS AND GLANDULAR MUCOSA WITH INTESTINAL METAPLASIA, COMPATIBLE WITH LMOBARDO'S ESOPHAGUS. -NEGATIVE FOR DYSPLASIA. Comment: The diagnosis [...] characteristics determined by the clinical laboratories of [facility]. They have not been cleared by the [...] negativity on decalcified specimens. Professional Performing Location: [place] [address]. DEPARTMENT OF PATHOLOGY AND LABORATORY MEDICINE [place], [place] [facility] LAB [facility] Basic Metabolic Panelon 05-30-2021 Calcium [Mass/Vol] 8.1 mg/dL Low 8.4-10.4 [facility] Comment on above: Performed By: #### H KEIKO BMP3 #### [address] Glucose [Mass/Vol] 151 mg/dL High 70-100 [facility] Comment on above: Performed By: #### H KEIKO BMP3 #### [address] Urea nitrogen [Mass/Vol] 6 mg/dL Low 7-17 [facility] Comment on above: Performed By: #### H KEIKO BMP3 #### [address] Anion gap [Moles/Vol] 5 mmol/L Normal 3-13 [facility] Comment on above: Performed By: #### H KEIKO BMP3 #### [address] CO2 [Moles/Vol] 30 mmol/L Normal 22-30 [facility] Comment on above: Performed By: #### H KEIKO BMP3 #### [facility] [address], [place] Creatinine [Mass/Vol] 0.62 mg/dL Normal 0.52-1.25 [facility] Comment on above: Performed By: #### H KEIKO BMP3 #### [facility] [address], [place] eGFR OTHER > 90.0 Normal >60 [facility] Comment on above: Result Comment: KDIG O [...] Performed By: #### H KEIKO BMP3 #### [facility] [address], [place] GFR/1.73 sq M.predicted among blacks MDRD (S/P/Bld) [Vol rate/Area] mL/min/{1.73_m2} Normal >60 [facility] Comment on above: Performed By: #### H KEIKO BMP3 #### [facility] [address], [place] Potassium [Moles/Vol] 4.0 mmol/L Normal 3.5-5.1 [facility] Comment on above: Performed By: #### H KEIKO BMP3 #### [facility] [address], [place] Chloride [Moles/Vol] 95 mmol/L Low 98-107 [facility] Comment on above: Performed By: #### H ERNESTO ADEN #### [facility] [address] [place] [address] Sodium [Moles/Vol] 130 mmol/L Low 135-145 [facility] Comment on above: Performed By: #### H ERNESTO ADEN #### [facility] [address] [place] [address] Anion gap [Moles/Vol] 5 mmol/L 3 - 13 mmol/L [facility] Calcium [Mass/Vol] 8.1 mg/dL Low 8.4 - 10. 4 mg/dL [facility] Chloride [Moles/Vol] 95 mmol/L Low 98 - 10 7 mmol/L [facility] CO2 [Moles/Vol] 30 mmol/L 22 - 30 mmol/L [facility] Creatinine [Mass/Vol] 0.62 mg/dL 0.52 - 1.25 mg/dL [facility] EGFR IF NonAfrican Cambodian >90.0 >60 mL/min [facility] Comment on above: [...] - 17 mg/dL [facility] Test Performed by [id number] [place] [address] LAB [facility] CBC with Auto Differentialon 06-08-2021 [...] - 10.7 10*3/uL [facility] Test Performed by [facility], [address] [place] [id number] [place], [place] [address]A HM ENDOSCOPY REPORTon 2021 Ordered by an unspecified provider. [facility] Hemogram w/ Autodiffon 06-08 Abs Baso Cnt 0.1 10*3/uL Normal 0.0-0.2 [facility] Comment on above: Performed By: #### H KEIKO BMP3 #### [address] [address] Abs Neutrophile Cnt 2.4 10*3/uL Normal 1.8-7.0 [facility] Comment on above: Performed By: #### H KEIKO BMP3 #### [address] [address] Basophils/100 WBC (Bld) 1.5 % Normal 0.0-2.0 [facility] Comment on above: Performed By: #### H KEIKO BMP3 #### [address] [address] Eosinophils (Bld) [#/Vol] 0.1 10*3/uL Normal 0.0-0.5 [facility] Comment on above: Performed By: #### H KEIKO BMP3 #### [address] [address] Eosinophils/100 WBC (Bld) 3.0 % Normal 1.0-6.0 [facility] Comment on above: Performed By: #### H KEIKO BMP3 #### [address] Erythrocyte distribution width (RBC) [Ratio] 13.8 % Normal 11.5-14.5 [facility] Comment on above: Performed By: #### H KEIKO BMP3 #### [facility] [address], [place] Granulocytes/100 WBC (Bld) 60.8 % Normal 40.0-80.0 [facility] Comment on above: Performed By: #### H KEIKO BMP3 #### [facility] [address], [place] Hematocrit (Bld) [Volume fraction] 40.0 % Normal 40.0-52.0 [facility] Comment on above: Performed By: #### H KEIKO BMP3 #### [place] [address] [address], [place] Hemoglobin (Bld) [Mass/Vol] 13.3 g/dL Normal 13.0-18.0 [facility] Comment on above: Performed By: #### H KEIKO BMP3 #### [place] [address] [address] [place], [place] Lymphocytes (Bld) [#/Vol] 1.0 10*3/uL Normal 1.0-4.3 [facility] Comment on above: Performed By: #### H KEIKO BMP3 #### [place] [address] [address] [place], [place] Lymphocytes/100 WBC (Bld) 24.6 % Normal 20.0-40.0 [facility] Comment on above: Performed By: #### H KEIKO BMP3 #### [facility] [address], [place] MCH (RBC) [Entitic mass] 32.9 pg Normal 26.0-34.0 [facility] Comment on above: Performed By: #### H KEIKO BMP3 #### [place] [address] [address] [place], [place] MCHC 33.3 % Normal 32.0-36.0 [facility] Comment on above: Performed By: #### H KEIKO BMP3 #### [place] [address] [address] [place], [place] MCV (RBC) [Entitic vol] 98.7 fL High 80.0-98.0 [facility] Comment on above: Performed By: #### H EMDBasim, BMP3 #### [facility] [address], [place] Monocytes (Bld) [#/Vol] 0.4 10*3/uL Normal 0.0-0.8 [facility] Comment on above: Performed By: #### H EMDF, BMP3 #### [place] [address] [place], [place] Monocytes/100 WBC (Bld) 10.1 % High 2.0-10.0 [facility] Comment on above: Performed By: #### H EMDF, BMP3 #### [place] [address] [place], [place] Platelet mean volume (Bld) [Entitic vol] 7.8 fL Normal 7.4-10.4 [facility] Comment on above: Performed By: #### H EMDF, BMP3 #### [address] Platelets (Bld) [#/Vol] 163 10*3/uL Normal 140-440 [facility] Comment on above: Performed By: #### H EMDF, BMP3 #### [place] [address] [place], [place] RBC (Bld) [#/Vol] 4.05 10*6/uL Low 4.40-5.90 [facility] Comment on above: Performed By: #### H EMDF, BMP3 #### [address] WBC (Bld) [#/Vol] 4.0 10*3/uL Normal 3.6-10.7 [facility] Comment on above: Performed By: #### H EMDF, BMP3 #### [address] Surgical Pathologyon 022 Surgical Pathology [id number] [facility] DEPART[facility] OF [facility] PATHOLOGY AND LABORATORY MEDICINE [address] [place] [address] FINAL SURGICAL PATHOLOGY REPORT NAME: SAMIRA MARIA DE JESUS Chika : 1965 55 [address] ORR NO.: [id number] LOCATION: [address] [place] [address] 01 PROCEDURE 06/08/2021 DATE: SURGEON: JAZMÍN WEI [...] characteristics determined by the clinical laboratories of [facility]. They have not been cleared by the [...] negativity on decalcified specimens. Professional Performing Location: [place] [address]. DEPARTMENT OF PATHOLOGY AND LABORATORY MEDICINE [place], [place] [address] [email or web address] Normal [facility] CBC with Auto Differentialon 06-07-2021 Absolute Baso # 0.1 10*3/uL 0.0 - 0.2 10*3/uL [facility] Absolute Neut # 2.1 10*3/uL 1.8 - 7.0 10*3/uL [facility] Basophils/100 WBC (Bld) 1.3 % 0.0 - 2.0 % [facility] Eosinophils (Bld) [#/Vol] 0.1 10*3/uL 0.0 - [...] - 10.7 10*3/uL [facility] Test Performed by [facility], [address] [place] [address] [facility] LAB [facility] Comp Panel with Mg Reflexon 06-07-2021 ALP [Catalytic activity/Vol] 92 U/L Normal 38-126 [facility] Comment on above: Performed By: #### H EMDF, MG3, CMP3M #### [place] [address] [address] [place], [place] ALT [Catalytic activity/Vol] 144 U/L High 0-49 [facility] Comment on above: Result Comment: The ALT test is performed by an updated assay method. Please note that the reference intervals have been changed and are now sex specific. Performed By: #### H EMDF, MG3, CMP3M #### [place] [address] [address] [place], [place] Anion gap [Moles/Vol] 10 mmol/L Normal 3-13 [facility] Comment on above: Performed By: #### H EMDF, MG3, CMP3M #### [place] [address] [address] [place], [place] AST [Catalytic activity/Vol] 104 U/L High 15-46 [facility] Comment on above: Performed By: #### H EMDF, MG3, CMP3M #### [place] [address] [address] [place], [place] Bilirubin [Mass/Vol] 0.6 mg/dL Normal 0.2-1.3 [facility] Comment on above: Performed By: #### H EMDF, MG3, CMP3M #### [place] [address] [address] [place], [place] CO2 [Moles/Vol] 26 mmol/L Normal 22-30 [facility] Comment on above: Performed By: #### H EMDF, MG3, CMP3M #### [place] [address] [address] [place], [place] Glucose [Mass/Vol] 133 mg/dL High 70-100 [facility] Comment on above: Performed By: #### H EMDF, MG3, CMP3M #### [place] [address] [address] [place], [place] Protein [Mass/Vol] 7.0 g/dL Normal 6.3-8.2 [facility] Comment on above: Performed By: #### H EMDF, MG3, CMP3M #### [place] [address] [address] [place], [place] Urea nitrogen [Mass/Vol] 6 mg/dL Low 7-17 [facility] Comment on above: Performed By: #### H MARK ADEN CMP3M #### [address] Creatinine [Mass/Vol] 0.72 mg/dL Normal 0.52-1.25 [facility] Comment on above: Performed By: #### H KEIKO MGViky CMP3M #### [address] eGFR OTHER > 90.0 Normal >60 [facility] Comment on above: Result Comment: KDIG O [...] By: #### H KEIKO MGViky CMP3M #### [address] GFR/1.73 sq M.predicted among blacks MDRD (S/P/Bld) [Vol rate/Area] mL/min/{1.73_m2} Normal >60 [facility] Comment on above: Performed By: #### H KEIKO MG3 CMP3M #### [address] Albumin [Mass/Vol] 4.2 g/dL Normal 3.5-5.0 [facility] Comment on above: Performed By: #### H KEIKO MG3 CMP3M #### [address] [place], [place] Chloride [Moles/Vol] 94 mmol/L Low 98-107 [facility] Comment on above: Performed By: #### H MARK ADEN CMP3M #### [facility] [address], [place] Potassium [Moles/Vol] 3.5 mmol/L Normal 3.5-5.1 [facility] Comment on above: Performed By: #### H MARK ADEN, CMP3M #### [facility] [address], [place] Sodium [Moles/Vol] 130 mmol/L Low 135-145 [facility] Comment on above: Performed By: #### H MG KEIKO3, CMP3M #### [place] [address] [place], [place] Calcium [Mass/Vol] 8.5 mg/dL Normal 8.4-10.4 [facility] Comment on above: Performed By: #### H MG KEIKO3 CMP3M #### [place] [address] [address] [place], [place] Comprehensive Metabolic Pane l w/ Reflex to MGon 06-07-2021 Albumin [Mass/Vol] 4.2 g/dL 3.5 - 5.0 g/dL [facility] ALP (Bld) [Catalytic activity/Vol] 92 U/L 38 - 126 U/L [facility] ALT [Catalytic activity/Vol] 144 U/L High 0 - 49 U/L [facility] Comment on above: The ALT test is [...] [Mass/Vol] 0.72 mg/dL 0.52 - 1.25 mg/dL [facility] EGFR IF NonAfrican Cambodian >90.0 >60 mL/min [facility] Comment on above: KDIGO guidelines pro vide [...] 133 mg/dL High 70 - 100 mg/dL [facility] Interpretation and review of laboratory results Abnormal [facility] Potassium [Moles/Vol] 3.5 mmol/L 3.5 - 5.1 mmol/L [facility] Sodium [Moles/Vol] 130 mmol/L Low 135 - 145 mmol/L [facility] Urea nitrogen (BldV) [Mass/Vol] 6 mg/dL Low 7 - 17 mg/dL [facility] Test Performed by [facility], [address] [place] [id number] [place] [address] [facility] Hemoglobin AND Hematocriton 06-07-2021 Hematocrit (Bld) [Volume fraction] 42.5 % Normal 40.0-52.0 [facility] Comment on above: Performed By: #### H GHCT #### [place] [address] [place] [address] Hemoglobin (Bld) [Mass/Vol] 14.4 g/dL Normal 13.0-18.0 [facility] Comment on above: Performed By: #### H GHCT #### [address] Hemoglobin and Hematocriton 06-07-2021 Hematocrit (Bld) [Volume fraction] 42.5 % 40.0 - 52.0 % [facility] Hemoglobin.gastrointesti nal spec 1 Ql (Stl) 14.4 g/dL 13.0 - 18.0 g/dL [facility] Test Performed by [address] [address] [facility] LAB [facility] Hemogram w/ Autodiffon 06-07 Abs Baso Cnt 0.1 10*3/uL Normal 0.0-0.2 [facility] Comment on above: Performed By: #### H EMDF, MG3, CMP3M #### [address] Abs Neutrophile Cnt 2.1 10*3/uL Normal 1.8-7.0 [facility] Comment on above: Performed By: #### H EMDF, MG3, CMP3M #### [address] Basophils/100 WBC (Bld) 1.3 % Normal 0.0-2.0 [facility] Comment on above: Performed By: #### H EMDF, MG3, CMP3M #### [address] Eosinophils (Bld) [#/Vol] 0.1 10*3/uL Normal 0.0-0.5 [facility] Comment on above: Performed By: #### H EMDF, MG3, CMP3M #### [address] Eosinophils/100 WBC (Bld) 1.9 % Normal 1.0-6.0 [facility] Comment on above: Performed By: #### H EMDF, MG3, CMP3M #### [address] Erythrocyte distribution width (RBC) [Ratio] 14.1 % Normal 11.5-14.5 [facility] Comment on above: Performed By: #### H EMDF, MG3, CMP3M #### [place] [address] [address] [place], [place] Granulocytes/100 WBC (Bld) 53.3 % Normal 40.0-80.0 [facility] Comment on above: Performed By: #### H EMDF, MG3, CMP3M #### [place] [address] [address] [place], [place] Hematocrit (Bld) [Volume fraction] 45.3 % Normal 40.0-52.0 [facility] Comment on above: Performed By: #### H EMDF, MG3, CMP3M #### [place] [address] [place], [place] Hemoglobin (Bld) [Mass/Vol] 15.3 g/dL Normal 13.0-18.0 [facility] Comment on above: Performed By: #### H EMDF, MG3, CMP3M #### [place] [address] [address] [place], [place] Lymphocytes (Bld) [#/Vol] 1.2 10*3/uL Normal 1.0-4.3 [facility] Comment on above: Performed By: #### H EMDF, MG3, CMP3M #### [place] [address] [place], [place] Lymphocytes/100 WBC (Bld) 30.2 % Normal 20.0-40.0 [facility] Comment on above: Performed By: #### H EMDF, MG3, CMP3M #### [place] [address] [address] [place], [place] MCH (RBC) [Entitic mass] 33.1 pg Normal 26.0-34.0 [facility] Comment on above: Performed By: #### H EMDF, MG3, CMP3M #### [place] [address] [address] [place], [place] MCHC 33.7 % Normal 32.0-36.0 [facility] Comment on above: Performed By: #### H EMDF, MG3, CMP3M #### [facility] [address], [place] MCV (RBC) [Entitic vol] 98.1 fL High 80.0-98.0 [facility] Comment on above: Performed By: #### H EMDF, MG3, CMP3M #### [place] [address] [address] [place], [place] Monocytes (Bld) [#/Vol] 0.5 10*3/uL Normal 0.0-0.8 [facility] Comment on above: Performed By: #### H EMDF, MG3, CMP3M #### [place] [address] [place], [place] Monocytes/100 WBC (Bld) 13.3 % High 2.0-10.0 [facility] Comment on above: Performed By: #### H EMDF, MG3, CMP3M #### [place] [address] [address] [place], [place] Platelet mean volume (Bld) [Entitic vol] 6.9 fL Low 7.4-10.4 [facility] Comment on above: Performed By: #### H EMDF, MG3, CMP3M #### [address] Platelets (Bld) [#/Vol] 195 10*3/uL Normal 140-440 [facility] Comment on above: Performed By: #### H EMDF, MG3, CMP3M #### [place] [address] [place], [place] RBC (Bld) [#/Vol] 4.62 10*6/uL Normal 4.40-5.90 [facility] Comment on above: Performed By: #### H EMDF, MG3, CMP3M #### [address] WBC (Bld) [#/Vol] 3.9 10*3/uL Normal 3.6-10.7 [facility] Comment on above: Performed By: #### H EMDF, MG3, CMP3M #### [facility] [address] [place] [address] Lactic Acidon 06-07-2021 Lactate [Moles/Vol] 0.8 mmol/L Normal 0.7-2.0 [facility] Comment on above: Performed By: #### L ACT3 #### [address] Test Performed by [facility], [address] [place] [id number] [place] [address] LAB Lactate [Moles/Vol] 2.6 mmol/L Critically high 0.7-2.0 [facility] Comment on above: Performed By: #### L ACT3 #### [address] Interpretation and review of laboratory results Abnormal [facility] Lactate [Moles/Vol] 2.6 mmol/L Critically high 0.7 - 2.0 mmol/L [facility] Test Performed by [facility], [address] [place] [id number] [place] [address] LAB [facility] Lactic AcidOrdered By: Valeriano Saavedra on 06-07-2021 Lactate [Moles/Vol] 0.8 mmol/L 0.7 - 2. 0 mmol/L [facility] Magnesiumon 06-07-2021 Magnesium [Mass/Vol] 1.9 mg/dL Normal 1.6-2.3 [facility] Comment on above: Performed By: #### H EMDF, MG3, CMP3M ####[facility] [place] [address] Magnesium [Mass/Vol] 1.9 mg/dL 1.6 - 2 .3 mg/dL [facility] Test Performed by [id number] [place] [address] LAB [facility] Add On Lab Teston 06-06-2021 Add On Accepted [facility] Comment on above: Specimen available & acceptable for analysis. Test Performed by [facility], [facility] Jarred Hernández , [address] LAB [facility] Add on test from HISon 06-06 Add on test from HIS Accepted Normal [facility] Comment on above: Result Comment: Spec imen available & acceptable for analysis. Performed By: #### A DDON #### [facility] [address] [place] [address] CT Abdomen and Pelvis W cont rast Main 06-06-2021 Patient Name: MARIA DE JESUS HOGAN Computed Tomography ACCESSION EXAM DATE/TIME PROCEDURE ORDERING PROVIDER [id number] 06/06/2021 17:[address] Abdomen/Pelvis w/ [place] [id number] CATALINO ROTH Contrast (IV Onl CPT code 19513 Q9967 Reason For Exam (CT Abdomen/Pelvis w/ [...] Date and Time: 06/06/2021 6:40 [facility] Zuly De La O MD - 06/06/2021 Patient Name: MARIA DE JESUS HOGAN Computed Tomography ACCESSION EXAM DATE/TIME PROCEDURE ORDERING PROVIDER [id number] 06/06/2021 17:[address] Abdomen/Pelvis w/ IV [id number] -CATALINO DIALLO Contrast (IV Onl CPT code 67170 Q9967 Reason For Exam (CT Abdomen/Pelvis w/ [...] Contrast [facility]: [id number] Comput[facility] Tom[facility] ACCESSION EXAM DATE/TIME PROCEDURE ORDERING PROVIDER [phone] 06/06/2021 17:[address] Abdomen/Pelvis w/ IV [id number] CATALINO ROTH Contrast (IV Onl CPT code 01478 Q9967 Reason For Exam (CT Abdomen/Pelvis w/ [...] Transcribed Date and Time: 06/06/2021 6:40 Normal [facility] Comp Metabolic Panelon 06-06 ALP [Catalytic activity/Vol] 101 U/L Normal 38-126 [facility] Comment on above: Performed By: #### E TOH4, PT, HEMOG, LIPA4, MG3, CMP3 #### [facility] [address] [place] [address] Anion gap [Moles/Vol] 14 mmol/L High 3-13 [facility] Comment on above: Performed By: #### E TOH4, PT, HEMOG, LIPA4, MG3, CMP3 #### [facility] [address] [place] [address] AST [Catalytic activity/Vol] 191 U/L High 15-46 [facility] Comment on above: Performed By: #### E TOH4, PT, HEMOG, LIPA4, MG3, CMP3 #### [facility] [address] [place] [address] Bilirubin [Mass/Vol] 0.7 mg/dL Normal 0.2-1.3 [facility] Comment on above: Performed By: #### E TOH4, PT, HEMOG, LIPA4, MG3, CMP3 #### [facility] [address] [place] [address] CO2 [Moles/Vol] 25 mmol/L Normal 22-30 [facility] Comment on above: Performed By: #### E TOH4, PT, HEMOG, LIPA4, MG3, CMP3 #### [facility] [address] [place] [address] Creatinine [Mass/Vol] 0.73 mg/dL Normal 0.52-1.25 [facility] Comment on above: Performed By: #### E TOH4, PT, HEMOG, LIPA4, MG3, CMP3 #### [facility] [address] [place] [address] eGFR OTHER > 90.0 Normal >60 [facility] Comment on above: Result Comment: KDIG O [...] TOH4, PT, HEMOG, LIPA4, MG3, CMP3 #### [facility] [address] [place] [address] GFR/1.73 sq M.predicted among blacks MDRD (S/P/Bld) [Vol rate/Area] mL/min/{1.73_m2} Normal >60 [facility] Comment on above: Performed By: #### E TOH4, PT, HEMOG, LIPA4, MG3, CMP3 #### [facility] [address] [place] [address] Protein [Mass/Vol] 7.8 g/dL Normal 6.3-8.2 [facility] Comment on above: Performed By: #### E TOH4, PT, HEMOG, LIPA4, MG3, CMP3 #### [facility] [address] [place] [address] Urea nitrogen [Mass/Vol] 7 mg/dL Normal 7-17 [facility] Comment on above: Performed By: #### E TOH4, PT, HEMOG, LIPA4, MG3, CMP3 #### [facility] [address] [place] [address] Chloride [Moles/Vol] 95 mmol/L Low 98-107 [facility] Comment on above: Performed By: #### E TOH4, PT, HEMOG, LIPA4, MG3, CMP3 #### [facility] [address] [place] [address] Potassium [Moles/Vol] 4.1 mmol/L Normal 3.5-5.1 [facility] Comment on above: Result Comment: Slig htly hemolysed, interpret with caution. Performed By: #### E TOH4, PT, HEMOG, LIPA4, MG3, CMP3 #### [facility] [address] [place] [address] Sodium [Moles/Vol] 133 mmol/L Low 135-145 [facility] Comment on above: Performed By: #### E TOH4, PT, HEMOG, LIPA4, MG3, CMP3 #### [facility] [address] [place] [address] Albumin [Mass/Vol] 4.6 g/dL Normal 3.5-5.0 [facility] Comment on above: Performed By: #### E TOH4, PT, HEMOG, LIPA4, MG3, CMP3 #### [facility] [address] [place] [address] ALT [Catalytic activity/Vol] 197 U/L High 0-49 [facility] Comment on above: The ALT test is [...] TOH4, PT, HEMOG, LIPA4, MG3, CMP3 #### [facility] [address] [place] [address] Calcium [Mass/Vol] 9.2 mg/dL Normal 8.4-10.4 [facility] Comment on above: Performed By: #### E TOH4, PT, HEMOG, LIPA4, MG3, CMP3 #### [facility] [address] [place] [address] Glucose [Mass/Vol] 105 mg/dL High 70-100 [facility] Comment on above: Performed By: #### E TOH4, PT, HEMOG, LIPA4, MG3, CMP3 #### [facility] [address] [place] [address] Comprehensive Metabolic Pane [facility] 06-06-2021 Albumin [Mass/Vol] 4.6 g/dL 3.5 [...] - 1.25 mg/dL [facility] EGFR IF NonAfrican Cambodian >90.0 >60 mL/min [facility] Comment on above: [...] fraction] 7.8 g/dL 6.3 - 8.2 g/dL [facility] GFR/1.73 sq M.predicted among blacks MDRD (S/P/Bld) [Vol rate/Area] mL/min/{1.73_m2} >60 mL/min [facility] Interpretation and review of laboratory results [facility]normal [facility] Potassium [Moles/Vol] 4.1 mmol/L 3.5 - 5.1 mmol/L [facility] Comment on above: Slightly hemolysed, interpret with caution. 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: ROJAS : 1965 Requested By: CATALINO DIALLO Order Number: [id number] Reading MD: Catalino Diallo Measurements Intervals [place] Rate: 93 P: 60 MI: 168 QRS: 75 QRSD: 86 T: 48 QT: 372 QTc: 463 Interpretive Statements SINUS RHYTHM rate 93 Normal intervals and QRS duration NO acute ischemic changes Electronically Signed On 06-06-2021 17:05:37 EST by Catalino VASQUEZ CARDIOLOGY Catalino Diallo, DO - 06/06/2021 [facility] Test Date: 2021-06-06 Pat Name: [facility] Department: 2BED Room: 05 Gender: M Tube Repairer: ND : 1965 Requested By: CATALINO DIALLO Order Number: [id number] Reading : Catalino Diallo Measurements Intervals [place] Rate: 93 P: 60 MI: 168 QRS: 75 QRSD: 86 T: 48 QT: 372 QTc: 463 Interpretive Statements SINUS RHYTHM rate 93 Normal intervals and QRS duration NO acute ischemic changes Electronically Signed On 06-06-2021 17:05:37 EST by Catalino VASQUEZ Work Phone: [facility] Work Phone: Ethanolon 06-06-2021 Ethanol Lvl 0.364 g/dL Critically high 0.000 - 0.010 g/dL [facility] Comment on above: NOTE: This result is for medical treatment only. Analysis performed using non-forensic procedures. Interpretation and review of laboratory results Abnormal [facility] Test Performed by [facility], [address] , [address] LAB [facility] Ethanol Serum/Plasmaon 06-06 Ethanol-Serum/Plasma 0.364 g/dL Critically high 0.000-0.01 0 [facility] Comment on above: Result Comment: NOTE : This result is for medical treatment only. Analysis performed using non-forensic procedures. Performed By: #### C UA2 #### [address] [place] [address] Hemogramon 06-06-2021 Erythrocyte distribution width (RBC) [Ratio] 13.6 % Normal 11.5-14.5 [facility] Comment on above: Performed By: #### E TOH4, PT, HEMOG, LIPA4, MG3, CMP3 #### [facility] [address] [place] [address] Hematocrit (Bld) [Volume fraction] 49.2 % Normal 40.0-52.0 [facility] Comment on above: Performed By: #### E TOH4, PT, HEMOG, LIPA4, MG3, CMP3 #### [facility] [address] [place] [address] Hemoglobin (Bld) [Mass/Vol] 17.0 g/dL Normal 13.0-18.0 [facility] Comment on above: Performed By: #### E TOH4, PT, HEMOG, LIPA4, MG3, CMP3 #### [facility] [address] [place] [address] MCH (RBC) [Entitic mass] 33.1 pg Normal 26.0-34.0 [facility] Comment on above: Performed By: #### E TOH4, PT, HEMOG, LIPA4, MG3, CMP3 #### [facility] [address] [place] [address] MCHC 34.6 % Normal 32.0-36.0 [facility] Comment on above: Performed By: #### E TOH4, PT, HEMOG, LIPA4, MG3, CMP3 #### [facility] [address] [place] [address] MCV (RBC) [Entitic vol] 95.6 fL Normal 80.0-98.0 [facility] Comment on above: Performed By: #### E TOH4, PT, HEMOG, LIPA4, MG3, CMP3 #### [facility] [address] [place] [address] Platelet mean volume (Bld) [Entitic vol] 6.6 fL Low 7.4-10.4 [facility] Comment on above: Performed By: #### E TOH4, PT, HEMOG, LIPA4, MG3, CMP3 #### [facility] [address] [place] [address] Platelets (Bld) [#/Vol] 271 10*3/uL Normal 140-440 [facility] Comment on above: Performed By: #### E TOH4, PT, HEMOG, LIPA4, MG3, CMP3 #### [facility] [address] [place] [address] RBC (Bld) [#/Vol] 5.14 10*6/uL Normal 4.40-5.90 [facility] Comment on above: Performed By: #### E TOH4, PT, HEMOG, LIPA4, MG3, CMP3 #### [facility] [address] [place] [address] WBC (Bld) [#/Vol] 4.8 10*3/uL Normal 3.6-10.7 [facility] Comment on above: Performed By: #### E TOH4, PT, HEMOG, LIPA4, MG3, CMP3 #### [facility] [address] [place] [address] Hemogram (CBC)on 06-06-2021 Hematocrit (Bld) [Volume fraction] 49.2 % 40.0 - 52.0 % [facility] Hemoglobin.gastrointesti nal spec 1 Ql (Stl) 17.0 g/dL 13.0 - 18.0 g/dL [facility] Interpretation and review of laboratory results Abnormal [...] [#/Vol] 4.8 10*3/uL 3.6 - 10.7 10*3/uL [facility] Test Performed by [facility], [address] [facility] Lipaseon 06-06-2021 Lipase [Catalytic activity/Vol] 197 U/L Normal 23-300 [facility] Comment on above: Performed By: #### E TOH4, PT, HEMOG, LIPA4, MG3, CMP3 #### [facility] [address] [place] [address] Magnesiumon 06-06-2021 Magnesium [Mass/Vol] 2.0 mg/dL Normal 1.6-2.3 [facility] Comment on above: Performed By: #### E TOH4, PT, HEMOG, LIPA4, MG3, CMP3 #### [facility] [address] [place] [address] No Panel Informationon 06-06 Test Performed by [facility], [address] LAB [facility] Prothrombin Timeon 2 INR 1.0 Normal 0.9-1.1 [facility] Comment on above: Result Comment: Abraham mmended [...] TOH4, PT, HEMOG, LIPA4, MG3, CMP3 #### [facility] [address] [place] [address] PT Coag (PPP) [Time] 10.7 s Normal 9.0-12.0 [facility] Comment on above: . Result Comment: . Performed By: #### E TOH4, PT, HEMOG, LIPA4, MG3, CMP3 #### [facility] [address] [place] [address] Protime-INRon 06-06-2021 INR Coag (Bld) [Relative time] 1.0 {INR} [facility] Comment on above: Recommended Anticoag ulant Therapy: [...] to prevent Myocardial Infarction Test Performed by [facility], [facility] [address] , [address] LAB [facility] TS GELon 06-06-2021 TS GEL ABO Group: A Rh, Gel: POS Antibody Screen Gel: NEG Normal [facility] Comment on above: Performed By: #### C UA2 #### [facility] [address] [place] [address] TYPE AND SCREENon 06-06-2021 ABO Grouping A [facility] Rh Type Positive [facility] Test Performed by [facility], [address] , [place] [id number] [facility] LAB [facility] Complete Urinalysison 2021 Appearance (U) Clear Normal Clear [facility] Comment on above: Result Comment: . Performed By: #### C UA2 #### [facility] [address] [place] [address] Bilirubin,Urine Negative Normal Negative [facility] Comment on above: Result Comment: . Performed By: #### C UA2 #### [facility] [address] [place] [address] Color (U) LIGHT YELLOW Normal Lt. Yellow [facility] Comment on above: Result Comment: . Performed By: #### C UA2 #### [facility] [address] [place] [address] Glucose Ql (U) Normal Normal Normal (<70) [facility] Comment on above: Result Comment: . Performed By: #### C UA2 #### [facility] [address] [place] [address] Ketone,Urine Negative Normal Negative [facility] Comment on above: Result Comment: . Performed By: #### C UA2 #### [facility] [address] [place] [address] Leukocytes,Urine Negative Normal Negative [facility] Comment on above: Result Comment: . Performed By: #### C UA2 #### [facility] [address] [place] [address] Nitrites,Urine Negative Normal Negative [facility] Comment on above: Result Comment: . Performed By: #### C UA2 #### [facility] [address] [place] [address] Occult Blood,Urine Negative Normal Negative [facility] Comment on above: Result Comment: . Performed By: #### C UA2 #### [facility] [address] [place] [address] pH,Urine 6.5 Normal 5.0-8.0 [facility] Comment on above: Result Comment: . Performed By: #### C UA2 #### [facility] [address] [place] [address] Specific [place],Urine 1.008 Normal 1.005 - 1.030 [facility] Comment on above: Result Comment: . Performed By: #### C UA2 #### [facility] [address] [place] [address] Total Protein,Urine Negative Normal Negative [facility] Comment on above: Result Comment: . Performed By: #### C UA2 #### [facility] [address] [place] [address] Urobilinogen,Urine Normal Normal Normal (0-1) [facility] Comment on above: Result Comment: . Performed By: #### C UA2 #### [facility] [address] [place] [address] UrinalysisOrdered By: Gary Sheikh on 04-06-2021 Appearance (U) Clear Clear NA [employer] Work Phone: Comment on above: . Bilirubin Urine Negative Negative mg/dL [facility] Work Phone: Comment on above: . Color (U) LIGHT YELLOW Lt. Yellow NA [employer] Work Phone: Comment on above: . Glucose, Ur Normal Normal (<70) mg/dL [facility] Work Phone: Comment on above: . Ketones Ql (U) Negative Negative mg/dL [facility] Work Phone: Comment on above: . LEUKOCYTES, UA Negative Negative Estefani/uL [employer] Work Phone: Comment on above: . Nitrite, Urine Negative Negative NA [facility] Work Phone: Comment on above: . Occult Blood,Urine Negative Negative mg/dL [facility] Work Phone: Comment on above: . pH (U) 6.5 [pH] [employer] Work Phone: Comment on above: . Specific [place], Urine 1.008 [address] [facility] Work Phone: Comment on above: . Total Protein, Urine Negative Negativ e mg/dL [facility] Work Phone: Comment on above: . Urobilinogen, Urine Normal Normal (0-1) mg/dL [facility] Work Phone: Comment on above: . [facility] Work Phone: Urinalysison 04-06-2021 Test Performed by [facility], [address] , [place], [place] [id number] [place] [address] LAB Comp Metabolic Panelon 02-15 Albumin [Mass/Vol] 4.1 g/dL Normal 3.5-5.0 [facility] Comment on above: Performed By: #### C OVAG #### [facility] [address] [place] [address] ALP [Catalytic activity/Vol] 92 U/L Normal 38-126 [facility] Comment on above: Performed By: #### C OVAG #### [facility] [address] [place] [address] ALT [Catalytic activity/Vol] 109 U/L High 0-49 [facility] Comment on above: Result Comment: The ALT test is performed by an updated assay method. Please note that the reference intervals have been changed and are now sex specific. Performed By: #### C OVAG #### [facility] [address] [place] [address] Anion gap [Moles/Vol] 12 mmol/L Normal 3-13 [facility] Comment on above: Performed By: #### C OVAG #### [facility] [address] [place] [address] AST [Catalytic activity/Vol] 92 U/L High 15-46 [facility] Comment on above: Performed By: #### C OVAG #### [facility] [address] [place] [address] Bilirubin [Mass/Vol] 0.4 mg/dL Normal 0.2-1.3 [facility] Comment on above: Performed By: #### C OVAG #### [facility] [address] [place] [address] Calcium [Mass/Vol] 8.8 mg/dL Normal 8.4-10.4 [facility] Comment on above: Performed By: #### C OVAG #### [facility] [address] [place] [address] Chloride [Moles/Vol] 100 mmol/L Normal 98-107 [facility] Comment on above: Performed By: #### C OVAG #### [facility] [address] [place] [address] CO2 [Moles/Vol] 25 mmol/L Normal 22-30 [facility] Comment on above: Performed By: #### C OVAG #### [facility] [address] [place] [address] Creatinine [Mass/Vol] 0.58 mg/dL Normal 0.52-1.25 [facility] Comment on above: Performed By: #### C OVAG #### [facility] [address] [place] [address] eGFR OTHER > 90.0 Normal >60 [facility] Comment on above: Result Comment: KDIG O [...] secretion. Performed By: #### C OVAG #### [facility] [address] [place] [address] GFR/1.73 sq M.predicted among blacks MDRD (S/P/Bld) [Vol rate/Area] mL/min/{1.73_m2} Normal >60 [facility] Comment on above: Performed By: #### C OVAG #### [facility] [address] [place] [address] Glucose [Mass/Vol] 129 mg/dL High 70-100 [facility] Comment on above: Performed By: #### C OVAG #### [facility] [address] [place] [address] Potassium [Moles/Vol] 3.9 mmol/L Normal 3.5-5.1 [facility] Comment on above: Performed By: #### C OVAG #### [facility] [address] [place] [address] Protein [Mass/Vol] 7.0 g/dL Normal 6.3-8.2 [facility] Comment on above: Performed By: #### C OVAG #### [facility] [address] [place] [address] Sodium [Moles/Vol] 137 mmol/L Normal 135-145 [facility] Comment on above: Performed By: #### C OVAG #### [facility] [address] [place] [address] Urea nitrogen [Mass/Vol] 3 mg/dL Low 7-17 [facility] Comment on above: Performed By: #### C OVAG #### [facility] [address] [place] [address] Drugs of Abuseon 02-15-2021 Amphetamines, Ur Negative Normal [facility] Comment on above: Performed By: #### D RGA4 #### [facility] [address] [place] [address] Barbiturates, Ur Negative Normal [facility] Comment on above: Performed By: #### D RGA4 #### [facility] [address] [place] [address] Benzodiazepines, Ur Negative Normal [facility] Comment on above: Performed By: #### D RGA4 #### [facility] [address] [place] [address] Cocaine, Ur Negative Normal [facility] Comment on above: Performed By: #### D RGA4 #### [facility] [address] [place] [address] Methadone, Ur Negative Normal [facility] Comment on above: Performed By: #### D RGA4 #### [facility] [address] [place] [address] Opiates, Ur Negative Normal [facility] Comment on above: Performed By: #### D RGA4 #### [facility] [address] [place] [address] Oxycodone/Oxymorphine,Ur Negative Normal [facility] Comment on above: Performed By: #### D RGA4 #### [facility] [address] [place] [address] Phencyclidine (PCP), Ur Negative Normal [facility] [...] order. Performed By: #### D RGA4 #### [facility] [address] [place] [address] ED Provider Noteon [facility] Janis [facility] ED Patient: Maria [...] We have contacted the detox unit at [facility] who will accept this patient in [...] are mis-transcribed.) CATALINO MUJICA MD Acute Care [facility] Catalino Mujica MD 02/15/21 1837 [facility] ED Provider Note [facility] ED eMERGENCY dEPARTMENT eNCOUnter Pt Name: Maria De Jesus Hogan Birthdate 1965 Date of evaluation: 02/15/2021 Provider: Shelly Clarke APRN - ROTOPRINTER This patient was seen in conjunction with Dr. Mujica CHIEF COMPLAINT Chief Complaint Patient presents with ? Alcohol Problem HISTORY OF PRESENT ILLNESS (Location/Symptom, Timing/Onset,Context/S etting, Quality, Duration, Modifying Factors, Severity) Note limiting factors. HPI Maria De Jesus Hogan is a 55 y.o. male who presents to the emergency department with alcohol intoxication and requesting alcohol detox. Patient states he was admitted at [facility] a few years ago was sober for [...] and Family: Not on file ? Attends Hinduism Services: Not on file ? Active Member [...] in t (more content not included)... Normal [facility] Ethanol Serum/Plasmaon 02-15 Ethanol-Serum/Plasma 0.288 g/dL High 0.000-0.010 [facility] Comment on above: Result Comment: NOTE : This result is for medical treatment only. Analysis performed using non-forensic procedures. Performed By: #### C OVAG #### [facility] [address] [place] [address] Hemogram w/ Autodiffon 02-15 Abs Baso Cnt 0.1 10*3/uL Normal 0.0-0.2 [facility] Comment on above: Performed By: #### C OVAG #### [facility] [address] [place] [address] Abs Neutrophile Cnt 3.2 10*3/uL Normal 1.8-7.0 [facility] Comment on above: Performed By: #### C OVAG #### [facility] [address] [place] [address] Basophils/100 WBC (Bld) 1.1 % Normal 0.0-2.0 [facility] Comment on above: Performed By: #### C OVAG #### [facility] [address] [place] [address] Eosinophils (Bld) [#/Vol] 0.1 10*3/uL Normal 0.0-0.5 [facility] Comment on above: Performed By: #### C OVAG #### [facility] [address] [place] [address] Eosinophils/100 WBC (Bld) 2.4 % Normal 1.0-6.0 [facility] Comment on above: Performed By: #### C OVAG #### [facility] [address] [place] [address] Erythrocyte distribution width (RBC) [Ratio] 14.2 % Normal 11.5-14.5 [facility] Comment on above: Performed By: #### C OVAG #### [facility] [address] [place] [address] Granulocytes/100 WBC (Bld) 55.7 % Normal 40.0-80.0 [facility] Comment on above: Performed By: #### C OVAG #### [facility] [address] [place] [address] Hematocrit (Bld) [Volume fraction] 45.9 % Normal 40.0-52.0 [facility] Comment on above: Performed By: #### C OVAG #### [facility] [address] [place] [address] Hemoglobin (Bld) [Mass/Vol] 15.7 g/dL Normal 13.0-18.0 [facility] Comment on above: Performed By: #### C OVAG #### [facility] [address] [place] [address] Lymphocytes (Bld) [#/Vol] 1.7 10*3/uL Normal 1.0-4.3 [facility] Comment on above: Performed By: #### C OVAG #### [facility] [address] [place] [address] Lymphocytes/100 WBC (Bld) 29.7 % Normal 20.0-40.0 [facility] Comment on above: Performed By: #### C OVAG #### [facility] [address] [place] [address] MCH (RBC) [Entitic mass] 34.2 pg High 26.0-34.0 [facility] Comment on above: Performed By: #### C OVAG #### [facility] [address] [place] [address] MCHC 34.2 % Normal 32.0-36.0 [facility] Comment on above: Performed By: #### C OVAG #### [facility] [address] [place] [address] MCV (RBC) [Entitic vol] 99.9 fL High 80.0-98.0 [facility] Comment on above: Performed By: #### C OVAG #### [facility] [address] [place] [address] Monocytes (Bld) [#/Vol] 0.6 10*3/uL Normal 0.0-0.8 [facility] Comment on above: Performed By: #### C OVAG #### [facility] [address] [place] [address] Monocytes/100 WBC (Bld) 11.1 % High 2.0-10.0 [facility] Comment on above: Performed By: #### C OVAG #### [facility] [address] [place] [address] Platelet mean volume (Bld) [Entitic vol] 6.6 fL Low 7.4-10.4 [facility] Comment on above: Performed By: #### C OVAG #### [facility] [address] [place] [address] Platelets (Bld) [#/Vol] 230 10*3/uL Normal 140-440 [facility] Comment on above: Performed By: #### C OVAG #### [facility] [address] [place] [address] RBC (Bld) [#/Vol] 4.59 10*6/uL Normal 4.40-5.90 [facility] Comment on above: Performed By: #### C OVAG #### [facility] [address] [place] [address] WBC (Bld) [#/Vol] 5.7 10*3/uL Normal 3.6-10.7 [facility] Comment on above: Performed By: #### C OVAG #### [facility] [address] [place] [address] SARS-CoV-2 Antigenon 021 SARS-CoV-2 Antigen Negative Normal Negative [facility] Comment on above: Result Comment: A negative result does not rule out the possibility of SARS-CoV-2 infection. NAAT-based methods should be considered for symptomatic patients presenting greater than seven days after onset of symptoms. Method: Lateral flow immunoassay. Fact sheets for healthcare providers and patients can be found at the following sites: https://www.Vaxxas.gov/media/047507/download https://www.[employer]axx[employer].gov/media/808406/download Performed By: #### C OVAG #### [facility] [address] [place] [address] CR Chest PA/LATon 11-18-2020 CR Chest PA/LAT Patient Name: MARIA DE JESUS HOGAN Diagnostic Radiology ACCESSION EXAM DATE/TIME PROCEDURE ORDERING PROVIDER [id number] 11/18/2020 13:11 EDT CR Chest PA and LAT MD RASHEED DIANA CPT code 94830 Reason For Exam (CR Chest PA and [...] Transcribed Date and Time: 11/18/2020 2:41 Normal [facility] XR CHEST (2 VW)Ordered By: Sharmila Rasheed on 11-18-2020 Patient Name: MARIA DE JESUS HOGAN Diagnostic Radiology ACCESSION EXAM DATE/TIME PROCEDURE ORDERING PROVIDER [id number] 11/18/2020 13:11 EDT CR Chest PA & LAT MD KATHYA, LYNDA CPT code 45555 Reason For Exam (CR Chest PA & [...] Time: 11/18/2020 2:41 [facility] Work Phone: [facility], [facility] Results From [facility] - 11/18/2020 2:41 PM EDT Patient Name: MARIA DE JESUS HOGAN Diagnostic Radiology ACCESSION EXAM DATE/TIME PROCEDURE ORDERING PROVIDER [id number] 11/18/2020 13:11 EDT CR Chest PA & LAT MD KATHYA, LYNDA CPT code 01637 Reason For Exam (CR Chest PA & [...] and Time: 11/18/2020 2:41 [facility] Work Phone: [phone] [facility] Work Phone: [phone] Metabolic Pane lOrdered By: Lynda Rasheed on 09-01-2020 Albumin [Mass/Vol] 4.3 g/dL 3.5 - 5.0 g/dL [facility] Work Phone: [phone] ALP (Bld) [Catalytic activity/Vol] 92 U/L 38 - 126 U/L [facility] Work Phone: [phone] ALT [Catalytic activity/Vol] 32 U/L 0 - 49 U/L [facility] Work Phone: [phone] Comment on above: The ALT test is perf ormed by an updated assay method. Please note that the reference intervals have been changed and are now sex specific. Anion gap [Moles/Vol] 8 mmol/L 3 - 13 mmol/L [facility] Work Phone: [phone] AST [Catalytic activity/Vol] 33 U/L 15 - 46 U/L [facility] Work Phone: [phone] Bilirubin [Mass/Vol] 0.4 mg/dL 0.2 - 1 .3 mg/dL [facility] Work Phone: [phone] Calcium [Mass/Vol] 9.0 mg/dL 8.4 - 10. 4 mg/dL [facility] Work Phone: [phone] Chloride [Moles/Vol] 101 mmol/L 98 - 10 7 mmol/L [facility] Work Phone: [phone] CO2 [Moles/Vol] 27 mmol/L 22 - 30 mmol/L [facility] Work Phone: [phone] Creatinine [Mass/Vol] 0.7 mg/dL 0.52 - 1.25 mg/dL [facility] Work Phone: [phone] EGFR IF NonAfrican Cambodian >90.0 >60 mL/min [facility] Work Phone: Comment [...] fraction] 7.6 g/dL 6.3 - 8.2 g/dL [facility] [facility] Work Phone: [phone] GFR/1.73 sq M.predicted among blacks MDRD (S/P/Bld) [Vol rate/Area] mL/min/{1.73_m2} >60 mL/min [facility] [facility] Work Phone: [phone] Glucose [Mass/Vol] 106 mg/dL High 70 - 100 mg/dL [employer] Work Phone: [phone] Potassium [Moles/Vol] 4.1 mmol/L 3.5 - 5.1 mmol/L [employer] Work Phone: [phone] Sodium [Moles/Vol] 136 mmol/L 135 - 145 mmol/L [employer] Work Phone: Urea nitrogen (BldV) [Mass/Vol] 7 mg/dL 7 - 20 mg/dL [employer] Work Phone: Lipid PanelOrdered By: Lynda Rasheed on 09-01-2020 Cholesterol [Mass/Vol] 285 mg/dL Abnormal <200 [facility] Work Phone: Cholesterol in HDL [Mass/Vol] 68 mg/dL High 40 - 60 mg/dL [facility] Work Phone: [phone] Cholesterol in LDL [Mass/Vol] 193 mg/dL Abnormal <100 [facility] Work Phone: 1 Cholesterol.total/Choles terol in HDL [Mass ratio] 4 {ratio} [facility] Work [facility]: [phone] Comment on above: Ref Range: < 3 Low Risk for CHD 3-6 Mod Risk for CHD > 6 High Risk for CHD Triglyceride [Mass/Vol] 120 mg/dL <150 [facility] Work Phone: [phone] No Panel InformationOrdered By: Lynda Rasheed on 09-01-2020 Interpretation and review of laboratory results Abnormal [facility] Work Phone: 1 Test Performed by [employer], [address] , [address] Work Phone: 1 [facility] Work Phone: 1 PSA, Prostatic Specific Anti genOrdered By: Lynda Rasheed on 09-01-2020 Prostatic Specific Ag 0.397 ng/mL <4.000 [facility] Work Phone: Comment on above: Testing performed on the [employer] using an immunometric methodology. Results obtained by different methods should not be used interchangeably. Test Performed by [employer], [facility] [address] , [address] Work Phone: [phone] [facility] Work [facility]: 1 Basic Metabolic Panel w/ Ref santi to MGon 06-10-2020 Anion gap [Moles/Vol] 6 mmol/L 3 - 13 mmol/L [facility] Work Phone: [phone] Calcium [Mass/Vol] 8.3 mg/dL Low 8.4 - 10. 4 mg/dL [facility] Work Phone: 1 Chloride [Moles/Vol] 95 mmol/L Low 98 - 10 7 mmol/L [facility] Work Phone: CO2 [Moles/Vol] 31 mmol/L High 22 - 30 mmol/L [facility] Work Phone: Creatinine [Mass/Vol] 0.71 mg/dL 0.52 - 1.25 mg/dL [facility] Work Phone: EGFR IF NonAfrican Cambodian >90.0 >60 mL/min [facility] Work Phone: [phone] Comment on above: KDIGO guidelines pro vide [...] MDRD (S/P/Bld) [Vol rate/Area] mL/min/{1.73_m2} >60 mL/min [facility] Work Phone: [phone] Glucose [Mass/Vol] 91 mg/dL 70 - 100 mg/dL [facility] [facility] Work Phone: [phone] Potassium [Moles/Vol] 3.8 mmol/L 3.5 - 5.1 mmol/L [facility] Work Phone: [phone] Sodium [Moles/Vol] 132 mmol/L Low 135 - 145 mmol/L [employer] Work Phone: [phone] Urea nitrogen [Mass/Vol] 3 mg/dL Low 7 - 20 mg/dL [employer] Work Phone: [phone] CBC auto differentialon 05-30 Absolute Baso # 0.0 10*3/uL 0.0 - 0.2 10*3/uL [facility] Work Phone: [phone] Absolute Neut # 2.1 10*3/uL 1.8 - 7.0 10*3/uL [facility] Work Phone: Basophils/100 WBC (Bld) 1.5 % 0.0 - 2.0 % [employer] Work Phone: Eosinophils (Bld) [#/Vol] 0.0 10*3/uL 0.0 - 0.5 10*3/uL [facility] Work Phone: [phone] Eosinophils/100 WBC (Bld) 1.3 % 1.0 - 6.0 % [employer] Work Phone: Erythrocyte distribution width (RBC) [Ratio] 15.4 % High 11.5 - 14.5 % [employer] Work Phone: Granulocytes/100 WBC (Bld) 66.1 % 40.0 - 80.0 % [employer] Work Phone: Hematocrit (Bld) [Volume fraction] 43.4 % 40.0 - 52.0 % [facility] Work Phone: Hemoglobin (Bld) [Mass/Vol] 14.9 g/dL 13.0 - 18.0 g/dL [facility] Work Phone: Interpretation and review of laboratory results Abnormal [facility] Work Phone: Lymphocytes (Bld) [#/Vol] 0.6 10*3/uL Low 1.0 - 4.3 10*3/uL [employer] Work Phone: Lymphocytes/100 WBC (Bld) 18.3 % Low 20.0 - 40.0 % [facility] Work Phone: MCH (RBC) [Entitic mass] 35.0 pg High 26. 0 - 34.0 pg [facility] [facility] Work Phone: MCHC (RBC) [Mass/Vol] 34.3 % 32.0 - 36.0 % [facility] [facility] Work Phone: MCV (RBC) [Entitic vol] 102.2 fL High 80.0 - 98.0 fL [facility] [facility] Work Phone: Monocytes (Bld) [#/Vol] 0.4 10*3/uL 0.0 - 0.8 10*3/uL [facility] [facility] Work Phone: [phone] Monocytes/100 WBC (Bld) 12.8 % High 2.0 - 10.0 % [employer] Work [phone] Platelet mean volume (Bld) [Entitic vol] 7.2 fL Low 7.4 - 10.4 fL [facility] Work Phone: [phone] Platelets (Bld) [#/Vol] 140 10*3/uL 140 - 440 10*3/uL [facility] Work Phone: RBC (Bld) [#/Vol] 4.24 10*6/uL Low 4.40 - 5.9 0 10*6/uL [facility] Work Phone: WBC (Bld) [#/Vol] 3.1 10*3/uL Low 3.6 - 10.7 10*3/uL [facility] Work Phone: 1 Test Performed by [employer], [address] [place] [address] [facility] Work Phone: Hepatic function panelon Albumin [Mass/Vol] 3.8 g/dL 3.5 - 5.0 g/dL [facility] Work Phone: 1 ALP [Catalytic activity/Vol] 124 U/L 38 - 126 U/L [facility] Work Phone: ALT [Catalytic activity/Vol] 229 U/L High 0 - 49 U/L [facility] Work Phone: Comment on above: The ALT test is perf ormed by an updated assay method. Please note that the reference intervals have been changed and are now sex specific. AST [Catalytic activity/Vol] 288 U/L High 15 - 46 U/L [facility] Work Phone: [phone] Bilirubin Ql (U) 0.8 mg/dL 0.2 - 1.3 mg/dL [facility] Work Phone: [phone] Bilirubin.direct [Mass/Vol] 0.0 mg/dL 0.0 - 0.3 mg/dL [facility] Work Phone: [phone] Protein [Mass/Vol] 6.7 g/dL 6.3 - 8.2 g/dL [facility] Work Phone: [phone] Iron and TIBCon 06-10-2020 Iron [Mass/Vol] 114 ug/dL 49 - 181 ug/dL [facility] Work Phone: [phone] Sat 75 % High 15 - 50 % [facility] [facility] Work Phone: [phone] TIBC 151 ug/dL Low 261 - 497 ug/dL [facility] Work Phone: [phone] Otheron 06-10-2020 Interpretation and review of laboratory results Abnormal [facility] Work Phone: [phone] Test Performed by [facility], [address] [place], [place] [address] [facility] Work Phone: [phone] APTTon 06-09-2020 aPTT Coag (Bld) [Time] 26.8 s 20.0 - 30.5 s [facility] Work Phone: [phone] Comment on above: NOTE: The therapeuti c time for Heparin anticoagulation, based on Xa activity inhibition, is an APTT of 46-80 seconds. Comprehensive Metabolic Pane arnulfo 06-09-2020 Albumin [Mass/Vol] 4.4 g/dL 3.5 - 5.0 g/dL [facility] Work Phone: [phone] ALP [Catalytic activity/Vol] 144 U/L High 38 - 126 U/L [facility] Work Phone: [phone] ALT [Catalytic activity/Vol] 260 U/L High 0 - 49 U/L [facility] Work Phone: [phone] Comment on above: The ALT test is perf ormed by an updated assay method. Please note that the reference intervals have been changed and are now sex specific. Anion gap [Moles/Vol] 15 mmol/L High 3 - 13 mmol/L [facility] Work Phone: [phone] AST [Catalytic activity/Vol] 335 U/L High 15 - 46 U/L [facility] Work Phone: [phone] Bilirubin Ql (U) 0.7 mg/dL 0.2 - 1.3 mg/dL [facility] Work Phone: [phone] Calcium [Mass/Vol] 9.1 mg/dL 8.4 - 10. 4 mg/dL [facility] Work Phone: [phone] Chloride [Moles/Vol] 99 mmol/L 98 - 10 7 mmol/L [facility] Work Phone: [phone] CO2 [Moles/Vol] 23 mmol/L 22 - 30 mmol/L [facility] Work Phone: [phone] Creatinine [Mass/Vol] 0.7 mg/dL 0.52 - 1.25 mg/dL [facility] Work Phone: [phone] EGFR IF NonAfrican Cambodian >90.0 >60 mL/min [facility] Work Phone: [phone] Comment on above: KDIGO guidelines pro vide [...] MDRD (S/P/Bld) [Vol rate/Area] mL/min/{1.73_m2} >60 mL/min [facility] Work Phone: [phone] Glucose [Mass/Vol] 99 mg/dL 70 - 100 mg/dL [facility] Work Phone: [phone] Potassium [Moles/Vol] 4.0 mmol/L 3.5 - 5.1 mmol/L [facility] Work Phone: [phone] Protein [Mass/Vol] 7.0 g/dL 6.3 - 8.2 g/dL [facility] [facility] Work Phone: [phone] Sodium [Moles/Vol] 137 mmol/L 135 - 145 mmol/L [facility] Work Phone: [phone] Urea nitrogen [Mass/Vol] 4 mg/dL Low 7 - 20 mg/dL [facility] Work Phone: [phone] EKG 12 Lead - Chest Painon 0 06-09-2020 Jonny, [facility] Incoming Cardiology Results From [facility] - 06/09/2020 10:[address] [facility] Test Date: 2020-06-09 Pat Name: Maria De Jesus [place] Department: ED Room: 04 Gender: M Tube Repairer: 630 : 1965 Requested By: ANTONIO MAURO Order Number: [id number] Reading MD: Paulette Reyes Measurements Intervals [place] Rate: 115 P: 77 MI: 160 QRS: 85 QRSD: 86 T: 44 QT: 332 QTc: 460 Interpretive Statements SINUS TACHYCARDIA PROBABLE LEFT ATRIAL ABNORMALITY BORDERLINE LOW VOLTAGE IN FRONTAL LEADS NONSPECIFIC T ABNORMALITIES, ANTERIOR LEADS Compared to ECG 10/03/2016 16:40:36 T-wave abnormality now present Sinus rhythm no longer present Electronically Signed On 06-09-2020 10:31:12 EST by Paulette Reyes [facility] Work Phone: [facility] Test Date: 2020-06-09 Pat Name: Maria De Jesus [place] Department: ED Room: 04 Gender: M Tube Repairer: 630 : 1965 Requested By: ANTONIO MAURO Order Number: [id number] Reading : Paulette Reyes Measurements Intervals [place] Rate: 115 P: 77 MI: 160 QRS: 85 QRSD: 86 T: 44 QT: 332 QTc: 460 Interpretive Statements SINUS TACHYCARDIA PROBABLE LEFT ATRIAL ABNORMALITY BORDERLINE LOW VOLTAGE IN FRONTAL LEADS NONSPECIFIC T ABNORMALITIES, ANTERIOR LEADS Compared to ECG 10/03/2016 16:40:36 T-wave abnormality now present Sinus rhythm no longer present Electronically Signed On 06-09-2020 10:31:12 EST by Paulette Reyes [facility] Work Phone: Ethanolon 06-09-2020 Ethanol Lvl 0.225 g/dL High 0.000 - 0.010 g/dL [facility] Work Phone: Comment on above: NOTE: This result is for medical treatment only. Analysis performed using non-forensic procedures. FOLATEon 06-09-2020 Folate 9.4 ng/mL 2.8 - 20.0 ng/mL [facility] Work Phone: Hemogram (CBC) w/Auto Diffon 06-09-2020 Absolute Baso # 0.0 10*3/uL 0.0 - 0.2 10*3/uL [facility] Work Phone: Absolute Neut # 1.2 10*3/uL Low 1.8 - 7.0 10*3/uL [facility] Work Phone: 22 Basophils/100 WBC (Bld) 1.0 % 0.0 - 2.0 % [employer] Work Phone: Eosinophils (Bld) [#/Vol] 0.0 10*3/uL 0.0 - 0.5 10*3/uL [facility] Work Phone: Eosinophils/100 WBC (Bld) 1.3 % 1.0 - 6.0 % [facility] Work Phone: Erythrocyte distribution width (RBC) [Ratio] 15.5 % High 11.5 - 14.5 % [facility] Work Phone: Granulocytes/100 WBC (Bld) 42.8 % 40.0 - 80.0 % [facility] Work Phone: Hematocrit (Bld) [Volume fraction] 48.0 % 40.0 - 52.0 % [facility] Work Phone: Hemoglobin (Bld) [Mass/Vol] 16.4 g/dL 13.0 - 18.0 g/dL [facility] Work Phone: Interpretation and review of laboratory results Abnormal [facility] Work Phone: Lymphocytes (Bld) [#/Vol] 1.0 10*3/uL 1.0 - 4.3 10*3/uL [facility] Work Phone: Lymphocytes/100 WBC (Bld) 34.0 % 20.0 - 40.0 % [employer] Work Phone: MCH (RBC) [Entitic mass] 34.6 pg High 26. 0 - 34.0 pg [facility] Work Phone: MCHC (RBC) [Mass/Vol] 34.1 % 32.0 - 36.0 % [employer] Work Phone: [phone] MCV (RBC) [Entitic vol] 101.4 fL High 80.0 - 98.0 fL [facility] Work Phone: Monocytes (Bld) [#/Vol] 0.6 10*3/uL 0.0 - 0.8 10*3/uL [facility] Work Phone: 1 Monocytes/100 WBC (Bld) 20.9 % High 2.0 - 10.0 % [facility] Work Phone: 1 Platelet mean volume (Bld) [Entitic vol] 6.7 fL Low 7.4 - 10.4 fL [facility] Work Phone: 1 Platelets (Bld) [#/Vol] 204 10*3/uL 140 - 440 10*3/uL [facility] Work Phone: RBC (Bld) [#/Vol] 4.74 10*6/uL 4.40 - 5.9 0 10*6/uL [facility] Work Phone: 1 WBC (Bld) [#/Vol] 2.9 10*3/uL Low 3.6 - 10.7 10*3/uL [employer] Work Phone: 1 Test Performed by [employer], [address] Work Phone: Lactic Acid, Plasmaon 2020 Interpretation and review of laboratory results Abnormal [facility] Work Phone: Lactate [Moles/Vol] 2.9 mmol/L Critically high 0.7 - 2.0 mmol/L [facility] Work Phone: 1 Test Performed by [employer], [address] [place], [place] [address] Work Phone: Lipaseon 06-09-2020 Lipase [Catalytic activity/Vol] 206 U/L 23 - 300 U/L [facility] Work Phone: 1 Otheron 06-09-2020 Test Performed by [facility], [address] [place], [place] [id number] [place], [place] [address] Work Phone: Test Performed by [employer], [address], [place], [place] [address] [facility] Work Phone: [phone] Interpretation and review of laboratory results Abnormal [facility] Work Phone: Test Performed by [employer], [address] , [place], [place] [address] [facility] Work Phone: [phone] Protime-INRon 06-09-2020 INR Coag (PPP) [Relative time] 1.0 {INR} [facility] Work Phone: Comment on above: Recommended Anticoag [...] 10.6 s 9.0 - 1 2.0 s [facility] Work Phone: Comment on above: . Vitamin B12on 06-09-2020 Cobalamin (Vitamin B12) [Mass/Vol] 830 pg/mL 239 - 931 pg/mL [facility] Work Phone: XR CHEST PORTABLEon 06-10-19 [facility] Incoming Radiology Results From [facility] - 06/09/2020 9:11 AM EST Patient Name: MARIA DE JESUS HOGAN Diagnostic Radiology ACCESSION EXAM DATE/TIME PROCEDURE ORDERING PROVIDER [id number] 06/09/2020 09:07 EST CR Chest Portable MD MAURO VIJAY CPT code 90575 Reason For Exam (CR Chest Portable) vomiting [...] RISA Transcribed Date and Time: 06/09/2020 9:11 [facility] Work [facility]: Patient Name: MARIA DE JESUS HOGAN Diagnostic Radiology ACCESSION EXAM DATE/TIME PROCEDURE ORDERING PROVIDER [id number] 06/09/2020 09:07 EST CR Chest Portable MD MAURO VIJAY CPT code 48633 Reason For Exam (CR Chest Portable) vomiting [...] RISA Transcribed Date and Time: 06/09/2020 9:11 [facility] Work Phone: Hematologyon 08-31-2019 Basophils/100 WBC (Bld) 0.7 % 0 - 2 % M [place] Eosinophils (Bld) [#/Vol] 0.0 10*3/uL 0 - 0.5 10*3/uL [place] Eosinophils/100 WBC (Bld) 0.6 % Low 1 - 6 % [place] Hematocrit (Bld) [Volume fraction] 50.3 % 40 - 52 % [place] Hemoglobin (Bld) [Mass/Vol] 17.2 g/dL 13 - 18 g/dL [place] Lymphocytes (Bld) [#/Vol] 2.2 10*3/uL 1 - 4.3 10*3/uL [place] Lymphocytes/100 WBC (Bld) 34.6 % 20 - 40 % [place] MCH (RBC) [Entitic mass] 34.9 pg High 26 - 34 pg [place] MCV (RBC) [Entitic vol] 102.2 fL High 80 - 98 fL [place], [place] Monocytes (Bld) [#/Vol] 0.5 10*3/uL 0 - 0.8 10*3/uL [place] Monocytes/100 WBC (Bld) 7.5 % 2 - 10 % [place] Platelets (Bld) [#/Vol] 330 10*3/uL 140 - 440 10*3/uL [place] RBC (Bld) [#/Vol] 4.92 10*6/uL 4.4 - 5.9 10*6/uL [place] WBC (Bld) [#/Vol] 6.5 10*3/uL 3.6 - 10.7 10*3/uL [place] Metabolic Panelon 08-31-2019 Albumin [Mass/Vol] 4.8 g/dL 3.5 - 5 g/dL [place] ALP [Catalytic activity/Vol] 171 U/L High 38 - 126 U/L [place] ALT [Catalytic activity/Vol] 98 U/L High 0 - 49 U/L [place] Comment on above: The ALT test is perf ormed by an updated assay method. Please note that the reference intervals have been changed and are now sex specific. Anion gap [Moles/Vol] 17 mmol/L [place], [place] AST [Catalytic activity/Vol] 107 U/L High 15 - 46 U/L [place] Calcium [Mass/Vol] 8.8 mg/dL 8.4 - 10. 4 mg/dL [place] Chloride [Moles/Vol] 98 mmol/L 98 - 10 7 mmol/L [place] CO2 [Moles/Vol] 22 mmol/L 22 - 30 mmol/L [place] Creatinine [Mass/Vol] 0.68 mg/dL 0.52 - 1.25 mg/dL [place] GFR/1.73 sq M predicted among blacks MDRD (S/P/Bld) [Vol rate/Area] mL/min/{1.73_m2} >60 mL/min [place] Glucose [Mass/Vol] 90 mg/dL 70 - 100 mg/dL [place] Potassium [Moles/Vol] 4.5 mmol/L 3.5 - 5.1 mmol/L [place] Protein [Mass/Vol] 8.1 g/dL 6.3 - 8.2 g/dL [place] Sodium [Moles/Vol] 136 mmol/L 135 - 145 mmol/L [place] Urea nitrogen [Mass/Vol] 6 mg/dL Low 7 - 20 mg/dL [place] Otheron 08-31-2019 Amphetamines, urine Negative [place] Barbiturates, Ur Negative [place] Benzodiazepine Ur Qual Negative [place] Cocaine Metabolites, Ur Negative M [place] Methadone, Urine Negative [place] Opiates, Urine Negative [place] Oxycodone Screen, Ur Negative [place] PCP, Urine Negative [place] Comment on above: The expected value [...] confirmation under separate order. Test Performed by [facility], [address] [place] [address] [place] Bilirubin Ql (U) 0.7 mg/dL 0.2 - 1.3 mg/dL [place] EGFR IF NonAfrican Cambodian >90.0 >60 mL/min [place] Comment on above: KDIGO guidelines pro [...] 0.284 g/dL High 0 - 0.01 g/dL [place] Comment on above: NOTE: This result is for medical treatment only. Analysis performed using non-forensic procedures. Interpretation and review of laboratory results Abnormal [place] Lipase [Catalytic activity/Vol] 140 U/L 23 - 300 U/L [place] Test Performed by [facility], [address] [place] [address] [place] Absolute Baso # 0.0 10*3/uL 0 - 0.2 10*3/uL [place] Absolute Neut # 3.7 10*3/uL 1.8 - 7 10*3/uL [place] Erythrocyte distribution width (RBC) [Ratio] 15.1 % High 11.5 - 14.5 % [place] Granulocytes/100 WBC (Bld) 56.6 % 40 - 80 % [place] Interpretation and review of laboratory results Abnormal [place] MCHC (RBC) [Mass/Vol] 34.2 % 32 - 36 % [place] Platelet mean volume (Bld) [Entitic vol] 6.6 fL Low 7.4 - 10.4 fL [place] Test Performed by [facility], [address] [place] [address], [place] [address] [place] CBC Auto Differentialon 01-30 Absolute Baso # 0.0 10*3/uL 0 - 0.2 10*3/uL [place] Absolute Neut # 4.8 10*3/uL 1.8 - 7 10*3/uL [place] Basophils/100 WBC (Bld) 0.5 % 0 - 2 % [place] Eosinophils (Bld) [#/Vol] 0.1 10*3/uL 0 - 0.5 10*3/uL [place] Eosinophils/100 WBC (Bld) 1.6 % 1 - 6 % [place] Erythrocyte distribution width (RBC) [Ratio] 13.6 % 11.5 - 14.5 % [place] Granulocytes/100 WBC (Bld) 65.8 % 40 - 80 % [place] Hematocrit (Bld) [Volume fraction] 46.7 % 40 - 52 % [place] Hemoglobin (Bld) [Mass/Vol] 16.2 g/dL 13 - 18 g/dL [place] Interpretation and review of laboratory results Abnormal [place] Lymphocytes (Bld) [#/Vol] 1.7 10*3/uL 1 - 4.3 10*3/uL [place] Lymphocytes/100 WBC (Bld) 24.0 % 20 - 40 % [place] MCH (RBC) [Entitic mass] 32.0 pg 26 - 34 pg [place] MCHC (RBC) [Mass/Vol] 34.7 % 32 - 36 % [place] MCV (RBC) [Entitic vol] 92.4 fL 80 - 98 fL [place] Monocytes (Bld) [#/Vol] 0.6 10*3/uL 0 - 0.8 10*3/uL [place] Monocytes/100 WBC (Bld) 8.1 % 2 - 10 % M [place] Platelet mean volume (Bld) [Entitic vol] 6.4 fL Low 7.4 - 10.4 fL [place] Platelets (Bld) [#/Vol] 419 10*3/uL 140 - 440 10*3/uL [place] RBC (Bld) [#/Vol] 5.06 10*6/uL 4.4 - 5.9 10*6/uL [place] WBC (Bld) [#/Vol] 7.3 10*3/uL 3.6 - 10.7 10*3/uL [place] Test Performed by [facility], [address] [place], [place] [address] , [address] Comprehensive Metabolic Pane arnulfo 02-14-2019 Albumin [Mass/Vol] 4.2 g/dL 3.5 - 5 g/dL [place] ALP [Catalytic activity/Vol] 107 U/L 38 - 126 U/L [place] ALT [Catalytic activity/Vol] 41 U/L 13 - 69 U/L [place] Anion gap [Moles/Vol] 9 mmol/L [place] AST [Catalytic activity/Vol] 20 U/L 15 - 46 U/L [place] Bilirubin Ql (U) 0.4 mg/dL 0.2 - 1.3 mg/dL [place] Calcium [Mass/Vol] 9.9 mg/dL 8.4 - 10. 4 mg/dL [place] Chloride [Moles/Vol] 101 mmol/L 98 - 10 7 mmol/L [place] CO2 [Moles/Vol] 28 mmol/L 22 - 30 mmol/L [place] Creatinine [Mass/Vol] 0.82 mg/dL 0.52 - 1.25 mg/dL [place] EGFR IF NonAfrican [place]ian >60.0 >60 mL/min [place] Comment on above: Source- MDRD equatio n with creatinine calibration to IDMS(NKDEP) eGFR not recommended for drug dose adjustment GFR/1.73 sq M predicted among blacks MDRD (S/P/Bld) [Vol rate/Area] mL/min/{1.73_m2} >60 mL/min [place] Glucose [Mass/Vol] 89 mg/dL 70 - 100 mg/dL [place] Potassium [Moles/Vol] 4.6 mmol/L 3.5 - 5.1 mmol/L [place] Protein [Mass/Vol] 6.9 g/dL 6.3 - 8.2 g/dL [place] Sodium [Moles/Vol] 138 mmol/L 135 - 145 mmol/L [place] Urea nitrogen [Mass/Vol] 9 mg/dL 7 - 20 mg/dL [place] Lipid Panelon 02-14-2019 Cholesterol [Mass/Vol] 262 mg/dL Abnormal <200 [place] Cholesterol in HDL [Mass/Vol] 43 mg/dL 40 - 60 mg/dL [place] Cholesterol in LDL [Mass/Vol] 187 mg/dL Abnormal <100 [place] Cholesterol.total/Choles terol in HDL [Mass ratio] 6 {ratio} [place] Comment on above: Ref Range: < 3 Low Risk for CHD 3-6 Mod Risk for CHD > 6 High Risk for CHD Interpretation and review of laboratory results Abnormal [place] Triglyceride [Mass/Vol] 162 mg/dL Abnormal <150 M [place] Otheron 02-14-2019 Test Performed by [facility], [address] , [address] CBC and Differentialon 02-14 Abs Baso <0.03 Normal <0.11 [facility] Comment on above: Performed By: #### C BCSADAF CMP ####[facility] [id number] [phone] Abs Coos 0.89 k/uL High <0.87 [facility] Comment on above: Performed By: #### C BCDIBasim, CMP ####[place] [address] Abs Neut 2.94 k/uL Normal 1.45-7.50 [facility] Comment on above: Performed By: #### C BCDIF, CMP ####[place] [address] Basophils/100 WBC (Bld) 0.3 % Normal [facility] Comment on above: Performed By: #### C BCDIF, CMP ####[place] [address] Eosinophils (Bld) [#/Vol] 0.16 10*3/uL Normal <0.46 [facility] Comment on above: Performed By: #### C BCDIF, CMP ####[place] [address] Eosinophils/100 WBC (Bld) 2.6 % Normal [facility] Comment on above: Performed By: #### C BCDIF, CMP ####[place] [address] Erythrocyte distribution width (RBC) [Ratio] 13.5 % Normal 11.5-15.0 [facility] Comment on above: Performed By: #### C BCDIF, CMP ####[place] [address] Hematocrit (Bld) [Volume fraction] 40.5 % Normal 39.0-51.0 [facility] Comment on above: Performed By: #### C BCDIF, CMP ####[place] [address] Hemoglobin (Bld) [Mass/Vol] 13.1 g/dL Normal 13.0-17.0 [facility] Comment on above: Performed By: #### C BCDIF, CMP ####[place] [address] Lymphocytes (Bld) [#/Vol] 2.09 10*3/uL Normal 1.00-4.00 [facility] Comment on above: Performed By: #### C BCDIF, CMP ####[place] [address] Lymphocytes/100 WBC (Bld) 34.3 % Normal [facility] Comment on above: Performed By: #### C BCDIF, CMP ####[facility] [address] [place] [address] MCH (RBC) [Entitic mass] 30.0 pG Normal 26.0-34.0 [facility] Comment on above: Performed By: #### C BCDIF, CMP ####[facility] [id number] [place], [place] [id number] MCHC (RBC) [Mass/Vol] 32.3 g/dL Normal 30.5-36.0 [facility] Comment on above: Performed By: #### C BCDIF, CMP ####[facility] [address] [place] [address] MCV (RBC) [Entitic vol] 92.9 fL Normal 80.0-100.0 [facility] Comment on above: Performed By: #### C BCDIF, CMP ####[facility] [address] [place] [address] Monocytes/100 WBC (Bld) 14.6 % Normal [facility] Comment on above: Performed By: #### C BCDIF, CMP ####[facility] [address] [place], [place] [phone] Neutrophils/100 WBC (Bld) 48.2 % Normal [facility] Comment on above: Performed By: #### C BCDIF, CMP ####[facility] [address] [place] [address] Platelet mean volume (Bld) [Entitic vol] 9.1 fL Normal 9.0-12.7 [facility] Comment on above: Performed By: #### C BCDIF, CMP ####[facility] [address] [place], [place] [phone] Platelets (Bld) [#/Vol] 296 10*3/uL Normal 150-400 [facility] Comment on above: Performed By: #### C BCDIF, CMP ####[facility] [address] [place], [place] [phone] RBC (Bld) [#/Vol] 4.36 10*6/uL Normal 4.20-6.00 [facility] Comment on above: Performed By: #### C BCDIF, CMP ####[facility] [address] [place] [phone] WBC (Bld) [#/Vol] 6.10 10*3/uL Normal 3.70-11.00 [facility] Comment on above: Performed By: #### C BCDIF, CMP ####[facility] [address] [place] [phone] CNCOon 02-14-2018 CNCO Letter Text February 14, 2018 Maria De Jesus Hogan [address] [facility] [address] Dear Mr. Hogan, The nurses and staff of [facility] hope this letter finds you feeling well [...] free to contact me, Geneva Farooq RN ([phone]) or email me at, [email or web address] Additionally, you will receive a survey in [...] participation and thank you for choosing the [facility] for your health needs. Sincerely, Nurse Shrinking Machine Operator: Geneva Farooq RN ([phone]) [facility] Unit: 2 [place] Letter Text February 14, 2018 Department of Hospital Medicine [address] [place] [address] Regarding: Maria De Jesus Hogan (: 1965) Dear Dr. Rasheed: A patient of your practice, Maria De Jesus Hogan, was admitted on 02/13/2018 to [facility] under the services of the Department of Hospital Medicine, and is currently under the care of Dr. Arredondo. We look forward to collaborating with you regarding his care. If you have any questions or concerns, please call us in the Department of Hospital Medicine at [facility], at [phone]. Best Regards, Larry Starr Letter Text February 14, 2018 Department of Hospital Medicine [address] [facility]/[place] [id number] Re: Maria De Jesus Farr Samira Dear Dr. Rasheed: A patient of your practice, Maria De Jesus Hogan (: 1965) was treated at [facility] under the care of the [facility] Department of Hospital Medicine, and discharged on 02/14/2018. A transcribed discharge summary should be forthcoming promptly. If you need additional information or assistance, you may contact the Department of Hospital Medicine at [phone] during regular business hours, and we?ll be happy to assist you. 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 My laboy findings include: History is patient found on floor of assisted with hemiplegia. Exam is inconsistent with no Babinski and alterations in his facial weakness with noxious stimuli prior similar episodes Assessment/Plan are reviewed with neurology and this seems to be conversion type reaction as the patient been scheduled for discharge from the assisted but was not released because of his noncompliance he did not get the early release on the day prior to admission and was going to have to spend another month to assisted. Evaluation with EEG MR I and CTA [...] after being found on floor of your assisted cell. You were evaluated in the ER [...] medications on discharge. You can return to assisted without any restrictions. You should follow up [...] THIS TIME: No pending results Discharge Disposition Intermediate Activity When You Leave the Hospital Resume [...] Patient/Parents to call for appointment?: Yes Lynda Rasheed [phone] [address] [facility] [address] [facility] [address] PCP Requested Referral Additional Provider to Provider Information: Patient admitted for left sided weakness after being found on floor of assisted cell. Has reported history of stroke abut [...] No new medications on discharge. Return to assisted without any restrictions. Assessment AND Plan, all Hosp Problems Active Hospital Problems as of 02/14/2018 Noted - Resolved Hospital Conversion reaction 02/13/2018 - Present Current Assessment AND Plan Assessment: Had unspecified type of stoke about 10 years ago with minor residual left sided weakness since event. Patient having increased left sided weakness today with right sided headache. Found on floor of assisted cell this morning. Neuro consulted in ED. [...] shows normal wave form. PLAN: -Return to assisted -Follow up with PCP in 1 month -Follow up with [facility] with continued symptoms. Weakness of extremity 02/13/2018 - Present Current Assessment AND Plan Assessment: Had unspecified type of stoke about 10 years ago with minor residual left sided weakness since event. Patient having increased left sided weakness today with right sided headache. Found on floor of assisted cell this morning. Neuro consulted in ED. Patient is not appropriate for TPA. CT of head and CT negative for acute intracranial process. Report from officer bedside states that patient has been seen several times at other facilities for similar complaint over the last several month during current incarceration. PLAN: -Discharge to assisted History of TIA (transient ischemic attack) and stroke 02/13/2018 - Present Current Assessment AND Plan Assessment: Had unspecified type of stoke about 10 years ago with minor residual left sided weakness since event. Patient having increased left sided weakness today with right sided headache. Found on floor of assisted cell this morning. Neuro consulted in ED. Patient is not appropriate for TPA. CT of head and CT negative for acute intracranial process. Report from officer bedside states that patient has been seen several times at other facilities for similar complaint over the last several month during current incarceration. MRI shows no acute or remote areas of infarct. PLAN: -Return to assisted -Follow up with PCP in 1 month -Follow up with [facility] for counseling if symptom persist. BPH (benign prostatic hyperplasia) 02/13/2018 - Present Current Assessment AND Plan Assessment: Currently controlled PLAN: -Continue flomax Resolved Hospital Problems as of 02/14/2018 None LABS AND PROCEDURES PENDING AT DISCHARGE: None FOLLOW-UP APPOINTMENTS ALREADY SCHEDULED WITH A [facility] PROVIDER: No future appointments. ALLERGIES No [...] February 14, 2018 TIME: 9:28 AM Normal [facility] Comp Metabolic Panelon 02-14 Albumin [Mass/Vol] 3.9 g/dL Normal 3.9-4.9 [facility] Comment on above: Performed By: #### C SHADY CMP ####[facility] [address] [place] [address] ALP [Catalytic activity/Vol] 85 U/L Normal 38-113 [facility] Comment on above: Performed By: #### C SHADY CMP ####[facility] [address] [place] [address] ALT [Catalytic activity/Vol] 14 U/L Normal 10-54 [facility] Comment on above: Performed By: #### C SHADY CMP ####[facility] [address] [place] [address] Anion gap [Moles/Vol] 9 mmol/L Normal 9-18 [facility] Comment on above: Performed By: #### C BCSADAF CMP ####[facility] [address] [place] [address] AST [Catalytic activity/Vol] 14 U/L Normal 14-40 [facility] Comment on above: Performed By: #### C BCSADAF CMP ####[facility] [address] [place] [address] Bilirubin [Mass/Vol] 0.4 mg/dL Normal 0.2-1.3 [facility] Comment on above: Performed By: #### C BCDIF, CMP ####[facility] [address] [place] [address] Calcium [Mass/Vol] 9.0 mg/dL Normal 8.5-10.2 [facility] Comment on above: Performed By: #### C BCDIF, CMP ####[facility] [address] [place] [address] Chloride [Moles/Vol] 103 mmol/L Normal 97-105 [facility] Comment on above: Performed By: #### C BCDIF, CMP ####[facility] [address] [place] [address] CO2 [Moles/Vol] 30 mmol/L Normal 22-30 [facility] Comment on above: Performed By: #### C BCDIF, CMP ####[facility] [address] [place] [address] Creatinine [Mass/Vol] 0.81 mg/dL Normal 0.73-1.22 [facility] Comment on above: Performed By: #### C BCDIF, CMP ####[facility] [address] [place] [address] eGFR- Amer. >60 Normal [facility] Comment on above: Performed By: #### C BCDIF, CMP ####[facility] [address] [place] [address] GFR/1.73 sq M predicted among non-blacks MDRD (S/P/Bld) [Vol rate/Area] mL/min/{1.73_m2} Normal [facility] Comment on above: Result Comment: eGFR (Estimated [...] GFR. Performed By: #### C BCDIF, CMP ####[facility] [address] [place] [address] Glucose [Mass/Vol] 81 mg/dL Normal 74-99 [facility] Comment on above: Result Comment: The [place] Diabetes Association (ADA) provides guidance for cutoff [...] Standards of Medical Care in Diabetes 2016, [place] Diabetes Association. Diabetes Care. 2016.39(Suppl 1). Performed By: #### C BCDIF, CMP ####[facility] [address] [place] [address] Potassium [Moles/Vol] 4.3 mmol/L Normal 3.7-5.1 [facility] Comment on above: Performed By: #### C BCDIF, CMP ####[facility] [address] [place] [address] Protein [Mass/Vol] 6.1 g/dL Low 6.3-8.0 [facility] Comment on above: Performed By: #### C BCDIF, CMP ####[facility] [address] [place] [address] Sodium [Moles/Vol] 142 mmol/L Normal 136-144 [facility] Comment on above: Performed By: #### C BCDIF, CMP ####[facility] [address] [place] [address] Urea nitrogen [Mass/Vol] 12 mg/dL Normal 9-24 [facility] Comment on above: Performed By: #### C BCDIF, CMP ####[facility] [address] [place] [address] Lipid Panel, Basicon 16-2 018 Cholesterol [Mass/Vol] 176 mg/dL Normal <200 [facility] Comment on above: Result Comment: <200 mg/dL, Desirable 200-239 mg/dL, Borderline high >239 mg/dL, High Performed By: #### L IPB ####[place] [id number] [place], [place] [phone] Cholesterol in HDL [Mass/Vol] 39 mg/dL Low >39 [facility] Comment on above: Result Comment: 40-5 9 mg/dL, Acceptable >59 mg/dL, High: Negative risk factor for coronary heart disease <40 mg/dL, Low: Positive risk factor for coronary heart disease Performed By: #### L IPB ####[address] [phone] Cholesterol in LDL [Mass/Vol] 126 mg/dL High <100 [facility] Comment on above: Result Comment: <100 mg/dL, Optimal 100-129 mg/dL, Near optimal/above optimal 130-159 mg/dL, Borderline high 160-189 mg/dL, High >189 mg/dL, Very high Secondary prevention optimal LDL Cholesterol levels are recommended to be < 70 mg/dL Performed By: #### L IPB ####[facility] [place] [address] [phone] Fasting Time Unknown Normal [facility] Comment on above: Performed By: #### L IPB ####[facility] [place], [place] [phone] LDL:HDL Ratio 3.23 High <2.54 [facility] Comment on above: Result Comment: Refe rahul: 1. National Cholesterol Education Program ATP III Guideline At-A-Glance Quick Desk Reference: National Heart, Lung, and Blood [place]. National Institutes of Health. 2001: NIH Publication No. 01-3305. 2. An International Atherosclerosis Society position paper: global recommendations for the management of dyslipidemia: executive summary, Atherosclerosis. 2014: 232(2):410-413. Performed By: #### L IPB ####[address] [phone] Non HDL Cholesterol 137 mg/dL High <130 [facility] Comment on above: Result Comment: <130 mg/dL, Optimal 130-159 mg/dL, Near optimal/above optimal 160-189 mg/dL, Borderline high 190-219 mg/dL, High >219 mg/dL, Very high Secondary prevention optimal non HDL Cholesterol levels are recommended to be < 100 mg/dL Performed By: #### L IPB ####[address] [phone] TC:HDL Ratio 4.51 Normal <5.10 [facility] Comment on above: Performed By: #### L IPB ####[place] [phone] Triglyceride [Mass/Vol] 53 mg/dL Normal <150 [facility] Comment on above: Result Comment: <150 mg/dL, Normal 150-199 mg/dL, Borderline high 200-499 mg/dL, High >499 mg/dL, Very high Performed By: #### L IPB ####[address] [phone] VLDL Cholesterol 11 mg/dL Normal <30 [facility] Comment on above: Performed By: #### L IPB ####[address] [phone] NURSING PROGon 02-14-2018 NURSING PROG HNO ID: [id number] Author: Carol (Rn) TISH Aly Service: (none) Author Type: Registered Nurse Type: Nursing Progress Note Filed: 02/14/2018 10:00 AM Note Text: Nursing Progress Note Patient Name: Maria De Jesus Hogan [facility] __ Daily Note:02/14/18 0741 EEG being completed. IVF infusing as ordered. Bedside report given from TISH Guardado. 0900 Neuro completed, see charting. NIH completed, results in a 2. Patient denies SAINZ or discomfort at this time. No other requests at this time. Side rails x 3 up, call light and possessions within reach. This note was completed by: Carol Aly RN [facility] NURSING PROG HNO ID: [id number] Author: Debby (Tish) TISH Saavedra Service: (none) Author Type: Registered Nurse Type: Nursing Progress Note Filed: 02/14/2018 5:37 AM Note Text: Nursing Progress Note Patient Name: Maria De Jesus Hogan Patient [facility] [facility]- 1 __ Daily Note: 1944- received report on pt. Pt off floor for cervical MRI. 2024- pt back to floor. Assessment completed. Numbness and tingling on the Left side of his body- also experiencing a 7/10 SAINZ. SR on tele. [place] at bedside- pt's ankles shackled. 2035- night-time [...] note was completed by: Debby Saavedra RN [facility] APTTon 02-13-2018 aPTT Coag (Bld) [Time] 26.9 s Normal 23.0-32.4 [facility] Comment on above: Result Comment: Unfr [...] laboratory APTT reagent in use throughout the [facility]. Performed By: #### C BC, PT, PTT, BMP #### [facility] [address] [place] [address] Basic Metabolic Panlon 02-13 Anion gap [Moles/Vol] 10 mmol/L Normal 9-18 [facility] Comment on above: Performed By: #### C BC, PT, PTT, BMP #### [facility] [address] [place] [address] Calcium [Mass/Vol] 9.6 mg/dL Normal 8.5-10.2 [facility] Comment on above: Performed By: #### C BC, PT, PTT, BMP #### [facility] [address] [place] [address] Chloride [Moles/Vol] 101 mmol/L Normal 97-105 [facility] Comment on above: Performed By: #### C BC, PT, PTT, BMP #### [facility] [address] [place] [address] CO2 [Moles/Vol] 30 mmol/L Normal 22-30 [facility] Comment on above: Performed By: #### C BC, PT, PTT, BMP #### [facility] [address] [place], [place] [phone] Creatinine [Mass/Vol] 0.81 mg/dL Normal 0.73-1.22 [facility] Comment on above: Performed By: #### C BC, PT, PTT, BMP #### [facility] [address] [place] [address] eGFR- Amer. >60 Normal [facility] Comment on above: Performed By: #### C BC, PT, PTT, BMP #### [facility] [address] [place], [place] [phone] GFR/1.73 sq M predicted among non-blacks MDRD (S/P/Bld) [Vol rate/Area] mL/min/{1.73_m2} Normal [facility] Comment on above: Result Comment: eGFR (Estimated [...] #### C BC, PT, PTT, BMP #### [facility] [address] [place] [address] Glucose [Mass/Vol] 102 mg/dL High 74-99 [facility] Comment on above: Result Comment: The [place] Diabetes Association (ADA) provides guidance for cutoff [...] Standards of Medical Care in Diabetes 2016, [place] Diabetes Association. Diabetes Care. 2016.39(Suppl 1). Performed By: #### C BC, PT, PTT, BMP #### [facility] [address] [facility] [phone] Potassium [Moles/Vol] 3.8 mmol/L Normal 3.7-5.1 [facility] Comment on above: Performed By: #### C BC, PT, PTT, BMP #### [facility] [address] [facility] [phone] Sodium [Moles/Vol] 141 mmol/L Normal 136-144 [facility] Comment on above: Performed By: #### C BC, PT, PTT, BMP #### [facility] [address] [facility] [phone] Urea nitrogen [Mass/Vol] 13 mg/dL Normal 9-24 [facility] Comment on above: Performed By: #### C BC, PT, PTT, BMP #### [facility] [address] [place] [phone] CBCon 02-13-2018 Erythrocyte distribution width (RBC) [Ratio] 13.3 % Normal 11.5-15.0 [facility] Comment on above: Performed By: #### C BC, PT, PTT, BMP #### [facility] [address] [facility] [phone] Hematocrit (Bld) [Volume fraction] 44.7 % Normal 39.0-51.0 [facility] Comment on above: Performed By: #### C BC, PT, PTT, BMP #### [facility] [address] [place] [phone] Hemoglobin (Bld) [Mass/Vol] 14.9 g/dL Normal 13.0-17.0 [facility] Comment on above: Performed By: #### C BC, PT, PTT, BMP #### [facility] [address] [place] [phone] MCH (RBC) [Entitic mass] 30.3 pG Normal 26.0-34.0 [facility] Comment on above: Performed By: #### C BC, PT, PTT, BMP #### [facility] [address] [place] [phone] MCHC (RBC) [Mass/Vol] 33.3 g/dL Normal 30.5-36.0 [facility] Comment on above: Performed By: #### C BC, PT, PTT, BMP #### [facility] [address] [place] [phone] MCV (RBC) [Entitic vol] 91.0 fL Normal 80.0-100.0 [facility] Comment on above: Performed By: #### C BC, PT, PTT, BMP #### [facility] [address] [facility] [phone] Platelet mean volume (Bld) [Entitic vol] 8.4 fL Low 9.0-12.7 [facility] Comment on above: Performed By: #### C BC, PT, PTT, BMP #### [facility] [address] [facility] [phone] Platelets (Bld) [#/Vol] 302 10*3/uL Normal 150-400 [facility] Comment on above: Performed By: #### C BC, PT, PTT, BMP #### [facility] [address] [facility] [phone] RBC (Bld) [#/Vol] 4.91 10*6/uL Normal 4.20-6.00 [facility] Comment on above: Performed By: #### C BC, PT, PTT, BMP #### [facility] [address] [facility] [phone] WBC (Bld) [#/Vol] 6.07 10*3/uL Normal 3.70-11.00 [facility] Comment on above: Performed By: #### C BC, PT, PTT, BMP #### [facility] [address] [facility] [phone] CNCOon 02-13-2018 CNCO Letter Text February 13, 2018 Department of Hospital Medicine [address] [place] [address] Regarding: Maria De Jesus [place] (: 1965) Dear Dr. Rasheed: A patient of your practice, Maria De Jesus Hogan, was admitted on 02/13/2018 to [facility] under the services of the Department of Hospital Medicine, and is currently under the care of Dr. Arredondo. We look forward to collaborating with you regarding his care. If you have any questions or concerns, please call us in the Department of Hospital Medicine at [facility], at [phone]. Best Regards, Larry Borja Normal [facility] CONSULTon 02-13-2018 CONSULT HNO ID: [id number] Author: Lyric Delgado Service: Neurology General Author [...] sensory loss. Patient presented this AM from [facility]. Last known well last night [...] at baseline. Reporting headache on the right yazidi that alternates between sharp and dull. Sensitive [...] 5/5 Biceps 5-/5 Triceps 5/5 Triceps 5-/5 [facility] Specialist 5/5 Community [facility] Specialist 4/5 WE 5/5 WE 4/5 RIGHT LE: [...] cervical spine ---> EEG Lyric Delgado M.D. [facility] [place] Department of [facility] Pager: [phone] February 13, 2018 [facility] [address] BRAIN WO IVCONon 02-14-20 CT BRAIN WO IVCON * * *Final Report* * * DATE OF EXAM: Feb 13 2018 7:02AM [facility] - CT BRAIN WO IVCON / [...] Physician: EVELYN FARAH on 02/13/2018 at 07:08. Flat Locker: GRANT Transcribe Date/Time: Feb 13 2018 7:08A Dictated by : RENATA ACEVEDO MD This examination was interpreted and the report reviewed and electronically signed by: RENATA ACEVEDO MD on Feb 13 2018 7:12AM EST [id number] [facility] CTA HEAD W IVCONon 8 CTA HEAD W IVCON * * *Final Report* * * DATE OF EXAM: Feb 13 2018 7:14AM [facility]22 - CTA HEAD W IVCON / [...] independent risk factor for atherosclerotic vascular disease. Flat Locker: PSCB Transcribe Date/Time: Feb 13 2018 7:25A Dictated by : RENATA ACEVEDO MD This examination was interpreted and the report reviewed and electronically signed by: RENATA ACEVEDO MD on Feb 13 2018 7:33AM EST [id number] [facility] CTA NECK W IVCONon 8 CTA NECK W IVCON * * *Final Report* * * DATE OF EXAM: Feb 13 2018 7:14AM [facility] 0024 - CTA NECK W IVCON / [...] independent risk factor for atherosclerotic vascular disease. Flat Locker: GRANT Transcribe Date/Time: Feb 13 2018 7:25A Dictated by : RENATA ACEVEDO MD This examination was interpreted and the report reviewed and electronically signed by: RENATA ACEVEDO MD on Feb 13 2018 7:33AM EST [id number] [facility] ED NOTEon 02-13-2018 ED NOTE HNO ID: [id number] Author: Catalino CaldwellRn) TISH Cabrera Service: (none) Author Type: Registered Nurse Type: ED Notes Filed: 02/13/2018 7:30 AM Note Text: Assumed patient care at this time. [facility] ED NOTE HNO ID: [id number] Author: Claudia CaldwellRn) TISH Harp Service: (none) Author Type: Registered Nurse Type: ED Notes Filed: 02/13/2018 7:13 AM Note Text: Patient returned to the Emergency Department. [facility] ED NOTE HNO ID: [id number] Author: Claudia CaldwellRn) TISH Harp Service: (none) Author Type: Registered Nurse Type: ED Notes Filed: 02/13/2018 6:56 AM Note Text: Patient transported to CT scan with monitor, Nurse and Tech. [facility] ED NOTE HNO ID: [id number] Author: Claudia CaldwellRn) TISH Harp Service: (none) Author Type: Registered Nurse Type: ED Notes Filed: 02/13/2018 6:56 AM Note Text: Pt presents to the ED with CC of stroke like symptoms, unknown last well, was found on the ground at 0526 per nursing staff at assisted. Pt has left side weakness [facility] ED NOTE HNO ID: [id number] Author: Claudia Samuel) TISH Harp Service: (none) Author Type: Registered Nurse Type: ED Notes Filed: 02/13/2018 6:59 AM Note Text: Pt placed on director news and continuous pulsox [facility] ED NOTE HNO ID: [id number] Author: Claudia CaldwellRn) TISH Harp Service: (none) Author Type: Registered Nurse Type: ED Notes Filed: 02/13/2018 6:51 AM Note Text: Bed: ED-02 Expected date: Expected time: Means of arrival: Comments: LST 5 [facility] ED PROV NOTEon 02-13-2018 ED PROV NOTE HNO ID: [id number] Author: Zuly Serna DO Service: Emergency Medicine Author Type: Physician Type: ED Provider Notes Filed: 02/13/2018 8:02 AM Note Text: ED Provider Note Patient Name: Maria De Jesus Hogan SERVICE DATE: 02/13/18 History Patient presents with: Potential Stroke Symptoms 52-year-old male past medical history of reported stroke 10 years ago presented with left-sided deficits, remote tobacco abuse presents from the [facility] with left-sided weakness and sensory deficits. Patient [...] reviewed Triage note reviewed Placed on director news Medications administered aspirin Consultation obtained stroke neurologist [...] MRI imaging. Administered aspirin. Admit to medicine. [facility] The patient was ADMITTED TO: Regular nursing floor. Case discussed with admitting physician, Dr. Arredondo. Condition at time of disposition: stable SIGNATURE: Zuly Serna DO Critical Care I spent a total of 30 minutes of critical care time in the evaluation and management of this patient. This was necessary to treat or prevent deterioration of the following condition(s): CRUISE COORDINATOR impairment, which the patient had and/or has a high probability of suddenly developing. The patient received ASA and Consultation by stroke neurologist during the time that critical care was provided. Critical care time excludes separately billed procedures. DO Zuly Mckeon DO 02/13/18 0801 Hanghenok Serna, DO 02/13/18 0802 Normal [facility] HISTORY PHYSICALon 8 HISTORY PHYSICAL HNO ID: [id number] Author: Uriel Arredondo MD Service: Hospital Medicine Author Type: Physician Type: HANDP Filed: 02/13/2018 4:38 PM Note Text: Attending Note I have personally performed a face to face assessment of the patient and have reviewed the PA/BAKING POWDER MIXER note. My laboy findings include: History is patient coming from assisted with left sided weakness there is some [...] AND WEEKEND COVERAGE: Nights: Please contact pager [phone]. SUBJECTIVE Chief Complaint: Left sided weakness, CVA HPI: 52year-old male past medical history of reported stroke 10 years ago presented with left-sided deficits, remote tobacco abuse presents from the [facility] assisted with left-sided weakness and sensory deficits. Patient [...] right sided headache. Found on floor of assisted cell this morning. Neuro consulted in ED. [...] right sided headache. Found on floor of assisted cell this morning. Neuro consulted in ED. [...] right sided headache. Found on floor of assisted cell this morning. Neuro consulted in ED. [...] 1957 02/13/18 1000 vte pharmacologic prophylaxis contraindicated (me,co) 02/13/18 1000 pneumatic compression stockings (me,co) VTE Prophylaxis: VTE prophylaxis appropriate SIGNATURE: Nilay Baker APRN.CNP PATIENT NAME: Maria De Jesus Hogan DATE: February 13, 2018 TIME: 10:05 AM PAGER/CONTACT #: [phone] Normal [facility] Hemoglobin A1con 02-13-2018 HbA1c (Bld) [Mass fraction] 108 mg/dL Normal [facility] Comment on above: Result Comment: eAG: (Estimated average glucose) is a calculated value from HgbA1c and is customer field representative of the average blood glucose level in the last 2-3 month period. Performed By: #### P T, MG1 ####[facility] [address] [place] [phone]#### HBA1C ####[facility] [address] [place] [phone] HbA1c (Bld) [Mass fraction] 5.4 % Normal 4.3-5.6 [facility] Comment on above: Result Comment: Amer [place] Diabetes Association guidelines indicate that patients with HgbA1c in the range 5.7-6.4% are at increased risk for development of diabetes, and intervention by lifestyle modification may be beneficial. HgbA1c greater or equal to 6.5% is considered diagnostic of diabetes. Performed By: #### P T, MG1 ####[facility] [address] [place] [phone]#### HBA1C ####[facility] [address] [place], [place] [phone] MRI BRAIN WO IVCONon 018 MRI BRAIN WO IVCON * * *Final Report* * * DATE OF EXAM: Feb 13 2018 1:03PM [facility] 0294 - MRI BRAIN WO IVCON / [...] No acute intracranial findings. No acute infarction. Flat Locker: [facility] Transcribe Date/Time: Feb 13 2018 2:12P Dictated by : ZULY ANTONY MD This examination was interpreted and the report reviewed and electronically signed by: ZULY ANTONY MD on Feb 13 2018 2:17PM EST [id number] Normal [facility] MRI CERVICAL SPINE WO IVCONo n 02-13-2018 MRI CERVICAL SPINE WO IVCON * * *Final Report* * * DATE OF EXAM: Feb 13 2018 8:15PM [facility] 0297 - MRI CERVICAL SPINE WO IVCON [...] vertebrae with counting from the craniocervical junction. Flat Locker[facility] Transcribe Date/Time: Feb 13 2018 8:32P Dictated by : UMM YEN MD This examination was interpreted and the report reviewed and electronically signed by: UMM YEN MD on Feb 13 2018 8:34PM EST [id number] Normal [facility] Magnesiumon 02-13-2018 Magnesium [Mass/Vol] 2.0 mg/dL Normal 1.7-2.3 [facility] Comment on above: Performed By: #### P T, MG1 ####[facility] [address] [place] [phone]#### HBA1C ####[facility] [address] [place], [place] [phone] NURSING PROGon 02-13-2018 NURSING PROG HNO ID: [id number] Author: Cata (Rn) TISH Prather Service: (none) Author Type: Registered Nurse Type: Nursing Progress Note Filed: 02/13/2018 6:41 PM Note Text: Nursing Progress Note Patient Name: Maria De Jesus Hogan [facility]- 1 __ Transfer Note: Patient transferred into room/unit 242. Pt. C/o 10/10 headache and L side weakness head to toes. Also, pt. C/o decreased sensation to the L side. Actions taken:Pt. oriented to room and call light. [place] at the bedside. Will continue to monitor and check with patient. 1100: Pt. Still c/o L side weakness, numbness, tingling and headache. SR on telemetry. Tylenol given per MAR order. [place] at the bedside. Will continue to monitor and check with patient. 1300: Pt. Back from MRI. Neurological assessment unchanged, headache improved. SR on tele. Call light in reach, bed in the lowest position. [place] at the bedside. Will continue to monitor and check with patient. 1500: Pt. Stating L side numbness improved, but L side weakness unchanged. Pt. Ate lunch. [place] at the bedside. Will continue to monitor and check with patient. 1700: Neurological assessment unchanged, pt. Continues to c/o L side weakness. SR on telemetry. VSS stable. [place] at the bedside. Will continue to monitor and check with patient. This note was completed by: Cata Prather RN Normal [facility] PROGRESSon 02-13-2018 PROGRESS HNO ID: [id number] Author: Garland Huizar Service: (none) Author Type: [...] and management Thank you for contacting the [facility]. I appreciate the opportunity for allowing me to participate in Maria De Jesus Hogan's care. Please feel free to contact me and/or the [facility] at any time if you have any further questions or need additional assistance. Garland Huizar MD February 13, 2018 8:51 AM Normal [facility] Protimeon 02-13-2018 PT Coag (PPP) [Time] 10.7 s Normal 9.7-13.0 [facility] Comment on above: Performed By: #### P T, MG1 ####[facility] [address] [phone]#### HBA1C ####[facility] [address] [place], [place] [phone] Performed By: #### C BC, PT, PTT, BMP #### [facility] [address] [facility] [phone] PT Coag (PPP) [Time] 1.1 s Normal 0.9-1.3 [facility] Comment on above: Result Comment: Lyssa min K Antagonist (VKA) Therapeutic Range: INR 2 to 3 (Target INR of 2.5) Note: For patients treated with VKA drugs, such as warfarin, the [place] [employer] 2012 Guideline recommends [...] Chest 2012, 141:7S-47S Amelia WELLS, et al. [facility] 2017, 70: 252-289 Performed By: #### P T, MG1 ####[facility] [address] [place] [phone]#### HBA1C ####[facility] [address] [place] [phone] Performed By: #### C BC, PT, PTT, BMP #### [facility] [address] [facility] [phone] THERAPY NTon 02-13-2018 THERAPY NT HNO ID: [id number] Author: Abdia (Agent Ticketing Gate) Maribell Hayes CCC/RED HAT OPEN STACK ADMINISTRATOR Service: Speech/Swallow Author Type: Speech Language Pathologist Type: Therapy (PT/OT/Speech/Resp) Filed: 02/13/2018 1:54 PM Note Text: Speech Therapy Speech Evaluation, Clinical Swallow Evaluation SERVICE DATE: 02/13/2018 SERVICE TIME: 1325 to 1350 ROOM: [place] [address] Diet Recommendations: Regular Consistency;Thin liquids Results and [...] Skilled Need Interventions Provided: Speech Language Eval (07435);Clinical Swallow Evaluation (86377) $ Speech Language Eval (62629) Billed Units: 1 unit Expressive / Receptive Language assessment is completed to determine patient's current communication skills within the acute care setting and potential need for therapeutic intervention. $ Clinical Swallow Evaluation (01161) Billed Units: 1 unit Clinical Swallowing assessment [...] CVA / Left sided weakness - Per ROTOPRINTER note: found by staff at 5:30 this [...] February 13, 2018 TIME: 1:51 PM Normal [facility] THERAPY NT HNO ID: [id number] Author: Abida (Enrico) NEL Burgos Service: Speech/Swallow Author Type: Speech Language Pathologist Type: Therapy (PT/OT/Speech/Resp) Filed: 02/13/2018 12:13 PM Note Text: SPEECH THERAPY MISSED VISIT SERVICE DATE: 02/13/2018 SERVICE TIME: 1200 to 1200 ROOM: [place] [address] Attempted Speech Evaluation;Clinical Swallow Evaluation. Patient not seen due to Test/Procedure. Spoke with nursing whom indicated that the patient was off the floor for a procedure. Regular diet has been ordered. This department will re-attempt assessment as patient becomes available and/or as schedule allows. SIGNATURE: WOODY Serrano PATIENT NAME: Maria De Jesus Hogan DATE: February 13, 2018 TIME: 12:12 PM [facility] Troponin Ton 02-13-2018 Troponin T.cardiac [Mass/Vol] ug/L Normal 0.000-0.029 [facility] Comment on above: Performed By: #### T NT ####[facility] [address] [place], [place] [phone] Vital Signs Date Time Vital Sign Value Performing Clinician Facility 09-20-2024 08:45-0400 Body temperature 97.8 [degF] Out [facility] 09-20-2024 08:45-0400 Diastolic blood pressure 82 mm[Hg] Out [facility] 09-20-2024 08:45-0400 Heart rate 104 /min Out [facility] 09-20-2024 08:45-0400 Respiratory rate 18 /min Out [facility] 09-20-2024 08:45-0400 SaO2% (BldA) [Mass fraction] 97 % Out [facility] 09-20-2024 08:45-0400 Systolic blood pressure 137 mm[Hg] Out [facility] 09-20-2024 05:32-0400 Body mass index (BMI) [Ratio] 30.2 kg/m2 Out [facility] 09-20-2024 05:32-0400 Body weight 98.5 kg Out [facility] 09-19-2024 04:39-0400 Inhaled oxygen flow rate 2 L/min Out [facility] 09-17-2024 20:50-0400 Body height 180.34 cm Out [facility] 09-17-2024 20:33-0400 Body temperature 97.7 [degF] Out [facility] 09-17-2024 20:33-0400 Diastolic blood pressure 85 mm[Hg] Out [facility] 09-17-2024 20:33-0400 Heart rate 109 /min Out [facility] 09-17-2024 20:33-0400 Respiratory rate 18 /min Out [facility] 09-17-2024 20:33-0400 SaO2% (BldA) [Mass fraction] 94 % Out [facility] 09-17-2024 20:33-0400 Systolic blood pressure 98 mm[Hg] Out [facility] 09-17-2024 18:30-0400 Body height 180.[address] [facility] 09-17-2024 18:30-0400 Body mass index (BMI) [Ratio] 30.8 kg/m2 Out [facility] 09-17-2024 18:30-0400 Body weight 100.[address] [facility] 08-14-2024 09:42-0400 Body height 180.3 cm Lynda Rasheed MD Work Phone: [facility] 08-14-2024 09:42-0400 Body mass index (BMI) [Ratio] 31.66 kg/m2 Lynda Rasheed MD Work Phone: [facility] 08-14-2024 09:42-0400 Body temperature 97.9 [degF] Lynda Rasheed MD Work Phone: [facility] 08-14-2024 09:42-0400 Body weight 102.97 kg Lynda Rasheed MD Work Phone: [facility] 08-14-2024 09:42-0400 Diastolic blood pressure 76 mm[Hg] Lynda Rasheed MD Work Phone: [facility] 08-14-2024 09:42-0400 Heart rate 90 /min Lynda Rasheed MD Work Phone: [facility] 08-14-2024 09:42-0400 Systolic blood pressure 112 mm[Hg] Lynda Rasheed MD Work Phone: [facility] 08-10-2024 16:25-0400 Body height 180.3 cm Catalino Waddell MD Work Phone: [facility] 08-10-2024 16:25-0400 Body mass index (BMI) [Ratio] 31.1 kg/m2 Catalino Waddell MD Work Phone: [facility] 08-10-2024 16:25-0400 Body temperature 97.81 [degF] Catalino Waddell MD Work Phone: [facility] 08-10-2024 16:25-0400 Body weight 101.15 kg Catalino Waddell MD Work Phone: [facility] 08-10-2024 16:25-0400 Diastolic blood pressure 99 mm[Hg] Catalino Waddell MD Work Phone: [facility] 08-10-2024 16:25-0400 Heart rate 99 /min Catalino Waddell MD Work Phone: [facility] 08-10-2024 16:25-0400 Respiratory rate 16 /min Catalino Waddell MD Work Phone: [facility] 08-10-2024 16:25-0400 SaO2% (BldA) [Mass fraction] 99 % Catalino Waddell MD Work Phone: [facility] 08-10-2024 16:25-0400 Systolic blood pressure 175 mm[Hg] Catalino Waddell MD Work Phone: [facility] 08-06-2024 11:33-0400 Body temperature 97.81 [degF] Matthew Demarco DO Work Phone: [facility] 08-06-2024 11:33-0400 Diastolic blood pressure 95 mm[Hg] Matthew Demarco DO Work Phone: [facility] 08-06-2024 11:33-0400 Heart rate 102 /min Matthew Demarco DO Work Phone: [facility] 08-06-2024 11:33-0400 Respiratory rate 16 /min Matthew Demarco DO Work Phone: [facility] 08-06-2024 11:33-0400 SaO2% (BldA) [Mass fraction] 95 % Matthew Demarco DO Work Phone: [facility] 08-06-2024 11:33-0400 Systolic blood pressure 139 mm[Hg] Matthew Demarco DO Work Phone: [facility] 08-04-2024 15:29-0400 Body height 181 cm Matthew Demarco DO Work Phone: [facility] 08-04-2024 15:29-0400 Body mass index (BMI) [Ratio] 31.15 kg/m2 Matthew Demarco DO Work Phone: [facility] 08-04-2024 15:29-0400 Body weight 102.06 kg Matthew Demarco DO Work Phone: [facility] 07-01-2024 20:33-0400 Diastolic blood pressure 87 mm[Hg] Goyo Melara MD Work Phone: [facility] 07-01-2024 20:33-0400 Heart rate 91 /min Goyo Melara MD Work Phone: [facility] 07-01-2024 20:33-0400 Respiratory rate 14 /min Goyo Melara MD Work Phone: [facility] 07-01-2024 20:33-0400 SaO2% (BldA) [Mass fraction] 99 % Goyo Melara MD Work Phone: [facility] 07-01-2024 20:33-0400 Systolic blood pressure 129 mm[Hg] Goyo Melara MD Work Phone: [facility] 07-01-2024 19:53-0400 Body height 177.8 cm Goyo Melara MD Work Phone: [facility] 07-01-2024 19:53-0400 Body mass index (BMI) [Ratio] 31.85 kg/m2 Goyo Melara MD Work Phone: [facility] 07-01-2024 19:53-0400 Body temperature 98.1 [degF] Goyo Melara MD Work Phone: [facility] 07-01-2024 19:53-0400 Body weight 100.7 kg Goyo Melara MD Work Phone: [facility] 06-16-2024 14:06-0400 Body height 177.8 cm Lynda Rasheed MD Work Phone: [facility] 06-16-2024 14:06-0400 Body mass index (BMI) [Ratio] 31.71 kg/m2 Lynda Rasheed MD Work Phone: [facility] 06-16-2024 14:06-0400 Body temperature 97.3 [degF] Lynda Rasheed MD Work Phone: [facility] 06-16-2024 14:06-0400 Body weight 100.25 kg Lynda Rasheed MD Work Phone: [facility] 06-16-2024 14:06-0400 Diastolic blood pressure 66 mm[Hg] Lynda Rasheed MD Work Phone: [facility] 06-16-2024 14:06-0400 Heart rate 108 /min Lynda Rasheed MD Work Phone: [facility] 06-16-2024 14:06-0400 SaO2% (BldA) [Mass fraction] 94 % Lynda Rasheed MD Work Phone: [facility] 06-16-2024 14:06-0400 Systolic blood pressure 106 mm[Hg] Lynda Rasheed MD Work Phone: [facility] 06-04-2024 10:54-0500 Body temperature 97.9 [degF] Catalino Yuaci DO Work Phone: [facility] 06-04-2024 10:54-0500 Diastolic blood pressure 99 mm[Hg] Catalino Yuaci DO Work Phone: [facility] 06-04-2024 10:54-0500 Heart rate 99 /min Catalino Pallaci DO Work Phone: [facility] 06-04-2024 10:54-0500 Respiratory rate 20 /min Catalino Yuaci DO Work Phone: [facility] 06-04-2024 10:54-0500 SaO2% (BldA) [Mass fraction] 94 % Catalino Yuaci DO Work Phone: [facility] 06-04-2024 10:54-0500 Systolic blood pressure 141 mm[Hg] Catalino Yuaci DO Work Phone: [facility] 06-02-2024 18:30-0500 Body height 177.8 cm Catalino Yuaci DO Work Phone: [facility] 06-02-2024 18:30-0500 Body mass index (BMI) [Ratio] 31.57 kg/m2 Catalino Yuaci DO Work Phone: [facility] 06-02-2024 18:30-0500 Body weight 99.79 kg Catalino Yuaci DO Work Phone: [facility] 05-25-2024 15:50-0500 Diastolic blood pressure 94 mm[Hg] Goyo Melara MD Work Phone: [facility] 05-25-2024 15:50-0500 Systolic blood pressure 113 mm[Hg] Goyo Melara MD Work Phone: [facility] 05-25-2024 15:46-0500 Body height 180.3 cm Goyo Melara MD Work Phone: [facility] 05-25-2024 15:46-0500 Body mass index (BMI) [Ratio] 32.08 kg/m2 Goyo Melara MD Work Phone: [facility] 05-25-2024 15:46-0500 Body temperature 97.5 [degF] Goyo Melara MD Work Phone: [facility] 05-25-2024 15:46-0500 Body weight 104.33 kg Goyo Melara MD Work Phone: [facility] 05-25-2024 15:46-0500 Heart rate 114 /min Goyo Melara MD Work Phone: [facility] 05-25-2024 15:46-0500 Respiratory rate 18 /min Goyo Melara MD Work Phone: [facility] 05-25-2024 15:46-0500 SaO2% (BldA) [Mass fraction] 93 % Goyo Melara MD Work Phone: [facility] 05-20-2024 13:15-0500 Body height 182.9 cm Lynda Rasheed MD Work Phone: [facility] 05-20-2024 13:15-0500 Body mass index (BMI) [Ratio] 30.54 kg/m2 Lynda Rasheed MD Work Phone: [facility] 05-20-2024 13:15-0500 Body temperature 97 [degF] Lynda Rasheed MD Work Phone: [facility] 05-20-2024 13:15-0500 Body weight 102.15 kg Lynda Rasheed MD Work Phone: [facility] 05-20-2024 13:15-0500 Diastolic blood pressure 75 mm[Hg] Lynda Rasheed MD Work Phone: [facility] 05-20-2024 13:15-0500 Heart rate 96 /min Lynda Rasheed MD Work Phone: [facility] 05-20-2024 13:15-0500 SaO2% (BldA) [Mass fraction] 97 % Lynda Rasheed MD Work Phone: [facility] 05-20-2024 13:15-0500 Systolic blood pressure 118 mm[Hg] Lynda Rasheed MD Work Phone: [facility] 05-10-2024 11:17-0500 Body temperature 98.29 [degF] Johnny Glozman DO Work Phone: [facility] 05-10-2024 11:17-0500 Diastolic blood pressure 86 mm[Hg] Johnny Glozman DO Work Phone: [facility] 05-10-2024 11:17-0500 Heart rate 107 /min Johnny Glozman DO Work Phone: [facility] 05-10-2024 11:17-0500 Respiratory rate 18 /min Johnny Glozman DO Work Phone: [facility] 05-10-2024 11:17-0500 SaO2% (BldA) [Mass fraction] 94 % Johnny Glozman DO Work Phone: [facility] 05-10-2024 11:17-0500 Systolic blood pressure 122 mm[Hg] Johnny Glozman DO Work Phone: [facility] 05-08-2024 12:07-0500 Body height 183.4 cm Johnny Glozman DO Work Phone: [facility] 05-08-2024 12:07-0500 Body mass index (BMI) [Ratio] 27.65 kg/m2 Johnny Glozman DO Work Phone: [facility] [place] 05-08-2024 12:07-0500 Body weight 92.99 kg Johnny Glozman DO Work Phone: [facility] 04-12-2024 07:10-0500 Body temperature 97.3 [degF] Mejgon Miesha DO Work Phone: [facility] 04-12-2024 07:10-0500 Diastolic blood pressure 95 mm[Hg] Mejgon Miesha DO Work Phone: [facility] 04-12-2024 07:10-0500 Heart rate 87 /min Irisn Miesha DO Work Phone: [facility] 04-12-2024 07:10-0500 Respiratory rate 16 /min Faithgon Miesha DO Work Phone: [facility] 04-12-2024 07:10-0500 SaO2% (BldA) [Mass fraction] 97 % Irisn Miesha DO Work Phone: [facility] 04-12-2024 07:10-0500 Systolic blood pressure 134 mm[Hg] Faithgon Miesha DO Work Phone: [facility] 04-11-2024 16:17-0500 Body height 180.3 cm Irisn Miesha DO Work Phone: [facility] 04-10-2024 19:47-0500 Body mass index (BMI) [Ratio] 31.49 kg/m2 Kolby Miesha DO Work Phone: [facility] 04-10-2024 19:47-0500 Body weight 102.4 kg Kolby Miesha DO Work Phone: [facility] 02-28-2024 09:54-0500 Body height 180.3 cm Myra Darden MD Work Phone: [facility] 02-28-2024 09:54-0500 Body mass index (BMI) [Ratio] 32.5 kg/m2 Myra Darden MD Work Phone: [facility] 02-28-2024 09:54-0500 Body weight 105.69 kg Myra Darden MD Work Phone: [facility] 02-28-2024 09:54-0500 Diastolic blood pressure 86 mm[Hg] Myra Darden MD Work Phone: [facility] 02-28-2024 09:54-0500 Heart rate 100 /min Myra Darden MD Work Phone: [facility] 02-28-2024 09:54-0500 SaO2% (BldA) [Mass fraction] 94 % Myra Darden MD Work Phone: [facility] Comment on above: RA 02-28-2024 09:54-0500 Systolic blood pressure 126 mm[Hg] Myra Darden MD Work Phone: [facility] 02-05-2024 08:15-0500 Body height 180.3 cm Lynda Rasheed MD Work Phone: [facility] 02-05-2024 08:15-0500 Body mass index (BMI) [Ratio] 31.74 kg/m2 Lynda Rasheed MD Work Phone: [facility] 02-05-2024 08:15-0500 Body temperature 98.1 [degF] Lynda Rasheed MD Work Phone: [facility] 02-05-2024 08:15-0500 Body weight 103.24 kg Lynda Rasheed MD Work Phone: [facility] 02-05-2024 08:15-0500 Diastolic blood pressure 80 mm[Hg] Lynda Rasheed MD Work Phone: [facility] 02-05-2024 08:15-0500 Heart rate 93 /min Lynda Rasheed MD Work Phone: [facility] 02-05-2024 08:15-0500 SaO2% (BldA) [Mass fraction] 96 % Lynda Rasheed MD Work Phone: [facility] 02-05-2024 08:15-0500 Systolic blood pressure 127 mm[Hg] Lynda Rasheed MD Work Phone: [facility] 01-24-2024 11:26-0400 Body temperature 97.11 [degF] Triston Abraham MD Work Phone: [facility] 01-24-2024 11:26-0400 Diastolic blood pressure 79 mm[Hg] Triston Abraham MD Work Phone: [facility] 01-24-2024 11:26-0400 Respiratory rate 16 /min Triston Abraham MD Work Phone: [facility] 01-24-2024 11:26-0400 Systolic blood pressure 113 mm[Hg] Triston Abraham MD Work Phone: [facility] 01-24-2024 08:16-0400 Heart rate 94 /min Triston Abraham MD Work Phone: [facility] 01-24-2024 08:16-0400 SaO2% (BldA) [Mass fraction] 98 % Triston Abraham MD Work Phone: [facility] 01-20-2024 22:51-0400 Body height 180.3 cm Triston Abraham MD Work Phone: [facility] 01-20-2024 22:51-0400 Body mass index (BMI) [Ratio] 32.08 kg/m2 Triston Abraham MD Work Phone: [facility] 01-20-2024 22:51-0400 Body weight 104.33 kg Triston Abraham MD Work Phone: [facility] 11-30-2023 08:09-0400 Body temperature 97.3 [degF] Steve Demarco MD Work Phone: [facility] 11-30-2023 08:09-0400 Diastolic blood pressure 92 mm[Hg] Steve Demarco MD Work Phone: [facility] 11-30-2023 08:09-0400 Heart rate 112 /min Steve Demarco MD Work Phone: [facility] 11-30-2023 08:09-0400 Respiratory rate 18 /min Steve Demarco MD Work Phone: [facility] 11-30-2023 08:09-0400 SaO2% (BldA) [Mass fraction] 95 % Steve Demarco MD Work Phone: [facility] 11-30-2023 08:09-0400 Systolic blood pressure 136 mm[Hg] Steve Demarco MD Work Phone: [facility] 11-27-2023 20:24-0400 Body height 180.3 cm Steve Demarco MD Work Phone: [facility] 11-27-2023 20:24-0400 Body mass index (BMI) [Ratio] 32.08 kg/m2 Steve Demarco MD Work Phone: [facility] 11-27-2023 20:24-0400 Body weight 104.33 kg Steve Demarco MD Work Phone: [facility] 07-31-2023 10:14-0400 Body temperature 96.8 [degF] Triston Abraham MD Work Phone: [facility] 07-31-2023 10:14-0400 Diastolic blood pressure 104 mm[Hg] Triston Abraham MD Work Phone: [facility] 07-31-2023 10:14-0400 Heart rate 97 /min Triston Abraham MD Work Phone: [facility] 07-31-2023 10:14-0400 Respiratory rate 19 /min Triston Abraham MD Work Phone: [facility] 07-31-2023 10:14-0400 SaO2% (BldA) [Mass fraction] 96 % Triston Abraham MD Work Phone: [facility] 07-31-2023 10:14-0400 Systolic blood pressure 148 mm[Hg] Triston Abraham MD Work Phone: [facility] 07-28-2023 01:01-0400 Body height 180.3 cm Triston Abraham MD Work Phone: [facility] 07-28-2023 01:01-0400 Body mass index (BMI) [Ratio] 29.99 kg/m2 Triston Abraham MD Work Phone: [facility] 07-28-2023 01:01-0400 Body weight 97.52 kg Triston Abraham MD Work Phone: [facility] 07-11-2023 11:18-0400 Body temperature 97.39 [degF] Catalino Mujica MD Work Phone: [facility] 07-11-2023 11:18-0400 Diastolic blood pressure 87 mm[Hg] Catalino Mujica MD Work Phone: [facility] 07-11-2023 11:18-0400 Heart rate 106 /min Catalino Mujica MD Work Phone: [employer] [employer] 07-11-2023 11:18-0400 Respiratory rate 16 /min Catalino Mujica MD Work Phone: [facility] 07-11-2023 11:18-0400 SaO2% (BldA) [Mass fraction] 95 % Catalino Mujica MD Work Phone: [facility] 07-11-2023 11:18-0400 Systolic blood pressure 123 mm[Hg] Catalino Mujica MD Work Phone: [facility] 07-08-2023 17:46-0400 Body height 180.3 cm Catalino Mujica MD Work Phone: [facility] 07-08-2023 17:46-0400 Body mass index (BMI) [Ratio] 30.68 kg/m2 Catalino Mujica MD Work Phone: [facility] 07-08-2023 17:46-0400 Body weight 99.79 kg Catalino Mujica MD Work Phone: [facility] 05-23-2023 08:00-0500 Body temperature 98.01 [degF] Scooter Luna MD Work Phone: [facility] 05-23-2023 08:00-0500 Diastolic blood pressure 96 mm[Hg] Scooter Luna MD Work Phone: [facility] 05-23-2023 08:00-0500 Heart rate 108 /min Scooter Luna MD Work Phone: [facility] 05-23-2023 08:00-0500 Respiratory rate 14 /min Scooter Luna MD Work Phone: [facility] 05-23-2023 08:00-0500 Systolic blood pressure 136 mm[Hg] Scooter Luna MD Work Phone: [facility] 05-22-2023 20:39-0500 SaO2% (BldA) [Mass fraction] 95 % Scooter Luna MD Work Phone: [facility] 05-20-2023 19:47-0500 Body height 177.8 cm Scooter Luna MD Work Phone: [facility] 05-20-2023 19:47-0500 Body mass index (BMI) [Ratio] 28.55 kg/m2 Scooter Luna MD Work Phone: [facility] 05-20-2023 19:47-0500 Body weight 90.27 kg Scooter Luna MD Work Phone: [facility] 03-19-2023 10:21-0500 Body height 180.3 cm Catalino Waddell MD Work Phone: [facility] 03-19-2023 10:21-0500 Body mass index (BMI) [Ratio] 29.99 kg/m2 Catalino Waddell MD Work Phone: [facility] 03-19-2023 10:21-0500 Body temperature 98.2 [degF] Catalino Waddell MD Work Phone: [facility] 03-19-2023 10:21-0500 Body weight 97.52 kg Catalino Waddell MD Work Phone: [facility] 03-19-2023 10:21-0500 Diastolic blood pressure 82 mm[Hg] Catalino Waddell MD Work Phone: [facility] 03-19-2023 10:21-0500 Heart rate 114 /min Catalino Waddell MD Work Phone: [facility] 03-19-2023 10:21-0500 Respiratory rate 16 /min Catalino Waddell MD Work Phone: [facility] 03-19-2023 10:21-0500 SaO2% (BldA) [Mass fraction] 95 % Catalino Waddell MD Work Phone: [facility] 03-19-2023 10:21-0500 Systolic blood pressure 141 mm[Hg] Catalino Waddell MD Work Phone: [facility] 02-18-2023 07:50-0500 Body temperature 97.81 [degF] Harjinder Darnell MD Work Phone: [facility] 02-18-2023 07:50-0500 Diastolic blood pressure 100 mm[Hg] Harjinder Darnell MD Work Phone: [facility] 02-18-2023 07:50-0500 Heart rate 93 /min Harjinder Darnell MD Work Phone: [facility] 02-18-2023 07:50-0500 Respiratory rate 16 /min Harjinder Darnell MD Work Phone: [facility] 02-18-2023 07:50-0500 SaO2% (BldA) [Mass fraction] 99 % Harjinder Darnell MD Work Phone: [facility] 02-18-2023 07:50-0500 Systolic blood pressure 164 mm[Hg] Harjinder Darnell MD Work Phone: [facility] 02-17-2023 09:17-0500 Diastolic blood pressure 93 mm[Hg] Harjinder Darnell MD Work Phone: [facility] 02-17-2023 09:17-0500 Heart rate 93 /min Harjinder Darnell MD Work Phone: [facility] 02-17-2023 09:17-0500 Respiratory rate 16 /min Harjinder Darnell MD Work Phone: [facility] 02-17-2023 09:17-0500 SaO2% (BldA) [Mass fraction] 96 % Harjinder Darnell MD Work Phone: [facility] 02-17-2023 09:17-0500 Systolic blood pressure 138 mm[Hg] Harjinder Darnell MD Work Phone: [facility] 02-17-2023 09:03-0500 Body height 180.3 cm Harjinder Darnell MD Work Phone: [facility] 02-17-2023 09:03-0500 Body mass index (BMI) [Ratio] 30.68 kg/m2 Harjinder Darnell MD Work Phone: [facility] 02-17-2023 09:03-0500 Body temperature 97.9 [degF] Harjinder Darnell MD Work Phone: [facility] 02-17-2023 09:03-0500 Body weight 99.79 kg Harjinder Darnell MD Work Phone: [facility] 02-11-2023 11:26-0500 Body temperature 97.39 [degF] Anusha Kothari MD Work Phone: [facility] 02-11-2023 11:26-0500 Diastolic blood pressure 97 mm[Hg] Anusha Kothari MD Work Phone: [facility] 02-11-2023 11:26-0500 Heart rate 104 /min Anusha Kothari MD Work Phone: [facility] 02-11-2023 11:26-0500 Respiratory rate 17 /min Anusha Kothari MD Work Phone: [facility] 02-11-2023 11:26-0500 SaO2% (BldA) [Mass fraction] 95 % Anusha Kothari MD Work Phone: [facility] 02-11-2023 11:26-0500 Systolic blood pressure 141 mm[Hg] Anusha Kothari MD Work Phone: [facility] 02-08-2023 16:46-0500 Body mass index (BMI) [Ratio] 30.13 kg/m2 Anusha Kothari MD Work Phone: [facility] 02-08-2023 16:46-0500 Body weight 95.25 kg Anusha Kothari MD Work Phone: [facility] 12-26-2022 08:25-0400 Body height 177.8 cm Lynda Rasheed MD Work Phone: [facility] 12-26-2022 08:25-0400 Body mass index (BMI) [Ratio] 32 kg/m2 Lynda Rasheed MD Work Phone: [facility] 12-26-2022 08:25-0400 Body temperature 98.29 [degF] Lynda Rasheed MD Work Phone: [facility] 12-26-2022 08:25-0400 Body weight 101.15 kg Lynda Rasheed MD Work Phone: [facility] 12-26-2022 08:25-0400 Diastolic blood pressure 82 mm[Hg] Lynda Rasheed MD Work Phone: [facility] 12-26-2022 08:25-0400 Heart rate 98 /min Lynda Rasheed MD Work Phone: [facility] 12-26-2022 08:25-0400 SaO2% (BldA) [Mass fraction] 93 % Lynda Rasheed MD Work Phone: [facility] 12-26-2022 08:25-0400 Systolic blood pressure 116 mm[Hg] Lynda Rasheed MD Work Phone: [facility] 09-25-2022 08:23-0400 Body height 177.8 cm Lydna Rasheed MD Work Phone: [facility] 09-25-2022 08:23-0400 Body mass index (BMI) [Ratio] 30.85 kg/m2 Lynda Rasheed MD Work Phone: [facility] 09-25-2022 08:23-0400 Body temperature 98.71 [degF] Lynda Rasheed MD Work Phone: [facility] 09-25-2022 08:23-0400 Body weight 97.52 kg Lynda Rasheed MD Work Phone: [facility] 09-25-2022 08:23-0400 Diastolic blood pressure 64 mm[Hg] Lynda Rasheed MD Work Phone: [facility] 09-25-2022 08:23-0400 Heart rate 112 /min Lynda Rasheed MD Work Phone: [facility] 09-25-2022 08:23-0400 SaO2% (BldA) [Mass fraction] 95 % Lynda Rasheed MD Work Phone: [facility] 09-25-2022 08:23-0400 Systolic blood pressure 88 mm[Hg] Lynda Rasheed MD Work Phone: [facility] 09-14-2022 11:20-0400 Body temperature 97.81 [degF] Triston Abraham MD Work Phone: [facility] 09-14-2022 11:20-0400 Diastolic blood pressure 96 mm[Hg] Triston Abraham MD Work Phone: [facility] 09-14-2022 11:20-0400 Heart rate 93 /min Triston Abraham MD Work Phone: [facility] 09-14-2022 11:20-0400 Respiratory rate 16 /min Triston Abraham MD Work Phone: [facility] 09-14-2022 11:20-0400 SaO2% (BldA) [Mass fraction] 93 % Triston Abraham MD Work Phone: [facility] 09-14-2022 11:20-0400 Systolic blood pressure 135 mm[Hg] Triston Abraham MD Work Phone: [facility] 09-12-2022 13:08-0400 Body height 177.8 cm Triston Abraham MD Work Phone: [facility] 09-10-2022 19:54-0400 Body mass index (BMI) [Ratio] 28.7 kg/m2 Triston Abraham MD Work Phone: [facility] 09-10-2022 19:54-0400 Body weight 90.72 kg Triston Abraham MD Work Phone: [facility] 08-01-2022 08:27-0400 Body height 177.8 cm Lynda Rasheed MD Work Phone: [facility] 08-01-2022 08:27-0400 Body mass index (BMI) [Ratio] 31.85 kg/m2 Lynda Rasheed MD Work Phone: [facility] 08-01-2022 08:27-0400 Body temperature 99 [degF] Lynda Rasheed MD Work Phone: [facility] 08-01-2022 08:27-0400 Body weight 100.7 kg Lynda Rasheed MD Work Phone: [facility] 08-01-2022 08:27-0400 Diastolic blood pressure 76 mm[Hg] Lynda Rasheed MD Work Phone: [facility] 08-01-2022 08:27-0400 Heart rate 93 /min Lynda Rasheed MD Work Phone: [facility] 08-01-2022 08:27-0400 SaO2% (BldA) [Mass fraction] 95 % Lynda Rasheed MD Work Phone: [facility] 08-01-2022 08:27-0400 Systolic blood pressure 105 mm[Hg] Lynda Rasheed MD Work Phone: [facility] 07-23-2022 10:17-0400 Diastolic blood pressure 94 mm[Hg] Arsenio Bookermbyasmani DO Work Phone: [facility] 07-23-2022 10:17-0400 Heart rate 110 /min Arsenio Gombash DO Work Phone: [facility] 07-23-2022 10:17-0400 Respiratory rate 18 /min Arsenio Villalta DO Work Phone: [facility] 07-23-2022 10:17-0400 SaO2% (BldA) [Mass fraction] 96 % Arsenio Gombash DO Work Phone: [facility] 07-23-2022 10:17-0400 Systolic blood pressure 136 mm[Hg] Arsenio Gombash DO Work Phone: [facility] 07-23-2022 09:57-0400 Body temperature 99.81 [degF] Arsenio Lauraash DO Work Phone: [facility] 07-23-2022 09:19-0400 Body height 177.8 cm Arsenio Gombash DO Work Phone: [facility] 07-23-2022 09:19-0400 Body mass index (BMI) [Ratio] 31.85 kg/m2 Arseniodahiana Sanchezash DO Work Phone: [facility] 07-23-2022 09:19-0400 Body weight 100.7 kg Arsenio Villalta DO Work Phone: [facility] 06-12-2022 10:08-0400 Body height 180.3 cm Lynda Rasheed MD Work Phone: [facility] 06-12-2022 10:08-0400 Body mass index (BMI) [Ratio] 31.1 kg/m2 Lynda Rasheed MD Work Phone: [facility] 06-12-2022 10:08-0400 Body weight 101.15 kg Lynda Rasheed MD Work Phone: [facility] 06-12-2022 10:08-0400 Diastolic blood pressure 74 mm[Hg] Lynda Rasheed MD Work Phone: [facility] 06-12-2022 10:08-0400 Heart rate 116 /min Lynda Rasheed MD Work Phone: [facility] 06-12-2022 10:08-0400 SaO2% (BldA) [Mass fraction] 94 % Lynda Rasheed MD Work Phone: [facility] 06-12-2022 10:08-0400 Systolic blood pressure 118 mm[Hg] Lynda Rasheed MD Work Phone: [facility] 09-29-2021 08:21-0400 Body temperature 97.9 [degF] Dipesh Nesheim DO Work Phone: [facility] 09-29-2021 08:21-0400 Diastolic blood pressure 109 mm[Hg] Dipesh Nesheim DO Work Phone: [facility] 09-29-2021 08:21-0400 Heart rate 104 /min Dipesh Nesheim DO Work Phone: [facility] 09-29-2021 08:21-0400 Respiratory rate 16 /min Dipesh Nesheim DO Work Phone: [facility] 09-29-2021 08:21-0400 SaO2% (BldA) [Mass fraction] 94 % Dipesh Nesheim DO Work Phone: [facility] 09-29-2021 08:21-0400 Systolic blood pressure 158 mm[Hg] Dipesh Nesheim DO Work Phone: [facility] 09-27-2021 00:45-0400 Body height 180.3 cm Dipesh Nesheim DO Work Phone: [facility] 09-27-2021 00:45-0400 Body mass index (BMI) [Ratio] 28.41 kg/m2 Dipesh Nesheim DO Work Phone: [facility] 09-27-2021 00:45-0400 Body weight 92.4 kg Dipesh Nesheim DO Work Phone: [facility] 06-09-2021 15:07-0500 Body temperature 97.5 [degF] Catalino Diallo DO Work Phone: [facility] 06-09-2021 15:07-0500 Diastolic blood pressure 97 mm[Hg] Catalino Diallo DO Work Phone: [facility] 06-09-2021 15:07-0500 Heart rate 104 /min [facility] 06-09-2021 15:07-0500 Respiratory rate 22 /min Catalino Yuaci DO Work Phone: [facility] 06-09-2021 15:07-0500 SaO2% (BldA) [Mass fraction] 98 % Catalino Yuaci DO Work Phone: [facility] 06-09-2021 15:07-0500 Systolic blood pressure 179 mm[Hg] Catalino Yuaci DO Work Phone: [facility] 06-08-2021 07:25-0500 Body height 180.3 cm Catalino Yuaci DO Work Phone: [facility] 06-08-2021 07:25-0500 Body mass index (BMI) [Ratio] 28.59 kg/m2 Catalino Yuaci DO Work Phone: [facility] 06-08-2021 07:25-0500 Body weight 92.99 kg Catalino Diallo DO Work Phone: [facility] 04-06-2021 09:38-0500 Body temperature 98.1 [degF] Joon Sheikh MD Work Phone: [facility] 04-06-2021 09:38-0500 Diastolic blood pressure 108 mm[Hg] Joon Sheikh MD Work Phone: [facility] 04-06-2021 09:38-0500 Heart rate 100 /min Joon Sheikh MD Work Phone: [facility] 04-06-2021 09:38-0500 Respiratory rate 20 /min Joon Sheikh MD Work Phone: [facility] 04-06-2021 09:38-0500 SaO2% (BldA) [Mass fraction] 95 % Joon Sheikh MD Work Phone: [facility] 04-06-2021 09:38-0500 Systolic blood pressure 160 mm[Hg] Joon Sheikh MD Work Phone: [facility] 06-10-2020 09:21-0500 BP Diastolic 104 mm[Hg] Antonio [...] Phone: 11-08-2019 10:09-0400 Body Temperature 99.19 [degF] [employer], [place] 11-08-2019 10:09-0400 BP Diastolic 99 mm[Hg] [employer] 11-08-2019 10:09-0400 BP Systolic 140 mm[Hg] [employer], [place] 11-08-2019 10:09-0400 Pulse (Heart Rate) 86 /min [employer] [facility] [place] 11-08-2019 10:09-0400 Pulse Oximetry 96 % [employer], [place] 11-08-2019 10:09-0400 Respiratory Rate 16 /min Harjinder Darnell [facility], [place] 09-02-2019 11:34-0400 Body Temperature 97.2 [degF] Lynda Rasheed [facility], [place] 09-02-2019 11:34-0400 BP Diastolic 92 mm[Hg] [facility] [place] 09-02-2019 11:34-0400 BP [facility]stolic 125 mm[Hg] [facility] [place] 09-02-2019 11:34-0400 Pulse (Heart Rate) 107 /min [facility] [place] 09-02-2019 11:34-0400 Pulse Oximetry 94 % [facility] [place] 09-02-2019 11:34-0400 Respiratory Rate 20 /[facility] [place] 08-31-2019 17:13-0400 BMI (Body Mass Index) 29.29 kg/m2 [facility] [place] 08-31-2019 17:13-0400 Body weight 95.25 kg [facility] [place] 08-31-2019 17:13-0400 Height 180.3 cm [address] [facility] [place] 06-05-2019 09:01-0500 Body Temperature 97.7 [degF] [facility], [place] 06-05-2019 09:01-0500 BP Diastolic 104 mm[Hg] [facility], [place] 06-05-2019 09:01-0500 BP Systolic 155 mm[Hg] [facility] [place] 06-05-2019 09:01-0500 Pulse (Heart Rate) 100 /min Catalino Wilcox [facility], [place] 06-05-2019 09:01-0500 Pulse Oximetry 95 % Catalino Wilcox [facility], [place] 06-05-2019 09:01-0500 Respiratory Rate 12 /min Catalino Wilcox [facility], [place] 03-08-2019 13:36-0500 Pulse (Heart Rate) 102 /min José Miguel Martinez [facility], [place] 03-08-2019 13:36-0500 Pulse Oximetry 96 % José Miguel Martinez [facility] , [place] 03-08-2019 13:36-0500 Respiratory Rate 14 /min José Miguel Martinez [facility], [place] 03-08-2019 13:09-0500 Body Temperature 98.49 [degF] José Miguel Martinez [facility], [place] 03-08-2019 13:09-0500 BP Diastolic 95 mm[Hg] [facility] [place] 03-08-2019 13:09-0500 BP Systolic 137 mm[Hg] José Miguel Talbot [facility] [place] Encounters Encounter Date Encounter Type Care Provider Facility Start: 09-20-2024 Non-patient / Non-visit Dr. Bryan Hernandez [facility] Work Phone: Start: 09-19-2024 Non-patient / Non-visit Dr. Bryan Hernandez [facility] Work Phone: Start: 09-18-2024 Non-patient / Non-visit Dr. Bryan Hernandez [facility] Work Phone: Start: 09-17-2024 ambulatory Out of Town Doctor Everett han:FELA Start: 09-17-2024 End: 09-20-2024 Evaluation and management of inpatient Dr. Joon Vinson DO -[facility] 3 Work Phone: Start: 08-14-2024 End: 09-01-2024 Telephone encounter [facility] Comment on above: Med Refill Start: 08-14-2024 End: 08-14-2024 Office outpatient visit 25 minutes Lynda Rasheed MD Work Phone: [facility] Comment on above: Screening for colon cancer (Primary Dx); Psoriasiform seborrheic dermatitis; Elevated liver enzymes; Neuropathy; Herpes zoster with other complication; Shingles (herpes zoster) polyneuropathy Start: 08-14-2024 End: 08-14-[address] [facility] Start: 08-13-2024 End: 08-13-2024 Subsequent hospital visit by physician Luis Branch MD Work Phone: [facility] Start: 08-12-2024 End: 08-13-2024 Refill Rashad Mohitdevyn DO Work Phone: [facility] Start: 08-10-2024 End: 08-10-2024 Emergency department patient visit Catalino Waddell MD Work Phone: [facility] Comment on above: Acute pain associate d with herpes zoster (Primary Dx) Start: 08-07-2024 End: 10-14-2024 Telephone encounter Lynda Rasheed MD Work Phone: [facility] Comment on above: Medication Question Start: 08-03-2024 End: 08-06-2024 Evaluation and management of inpatient Matthewyasmani Demarco DO Work Phone: [facility] Comment on above: Alcohol withdrawal s yndrome without complication (HCC) (Primary Dx); Alcohol dependence with inpatient treatment (HCC); Herpes zoster without complication; Shingles (herpes zoster) polyneuropathy Start: 07-01-2024 End: 07-01-2024 Emergency department patient visit Goyo Melara MD Work Phone: [facility] Comment on above: Subcutaneous hematom a (Primary Dx); Contusion of dorsum of foot Start: 06-25-2024 End: 07-16-2024 Telephone encounter Yasemin Goins CNP Work Phone: [facility] [place] Start: 06-22-2024 End: 06-23-2024 Refill Grayson Kessler PA-C Work Phone: [facility] Comment on above: Psoriasiform seborrh eic dermatitis; Elevated liver enzymes Start: 06-16-2024 End: 06-16-2024 Office outpatient visit 25 minutes Lynda Rasheed MD Work Phone: [facility] Comment on above: Elevated LFTs (Prima ry Dx); Lombardo esophagus with esophagitis; Elevated liver enzymes; Cigarette smoker; Severe alcohol use disorder (HCC); Screening for colon cancer; Lumbar back pain Start: 06-16-2024 End: 06-16-2024 [facility] Start: 06-11-2024 End: 06-11-2024 Subsequent hospital visit by physician Myra Darden MD Work Phone: [facility] Comment on above: Pulmonary nodule Start: 06-11-2024 End: 06-11-2024 ambulatory [facility] Start: 06-08-2024 End: 06-08-2024 Telephone encounter Lynda Rasheed MD Work Phone: [facility] Clinical Communication Start: 06-03-2024 End: 06-03-2024 Telephone encounter Kristin Goins CNP Work Phone: [facility] [place] Comment on above: Test Scheduling Start: 06-02-2024 End: 06-04-2024 Evaluation and management of inpatient Catalino Diallo DO Work Phone: [facility] Comment on above: Alcohol withdrawal w ith inpatient treatment, uncomplicated (HCC) (Primary Dx); Alcohol use disorder; Severe alcohol use disorder (HCC) Start: 06-01-2024 End: 06-02-2024 Refill Lynda Rasheed MD [facility] Comment on above: Psoriasiform seborrh eic dermatitis; Elevated liver enzymes Start: 05-25-2024 End: 05-25-2024 Emergency department patient visit Goyo Melara MD Work Phone: [facility] ED Comment on above: Closed head injury, initial encounter (Primary Dx); Alcoholic intoxication without complication (CMS/HCC) (HCC) Start: 05-23-2024 End: 05-26-2024 Telephone encounter Lynda Rasheed MD Work Phone: [facility] Clinical Communication Comment on above: Test Scheduling Start: 05-21-2024 End: 05-21-2024 Telephone encounter Mp Dempsey MD Work Phone: [facility] - [place] Start: 05-20-2024 End: 05-20-2024 ambulatory [facility] Start: 05-20-2024 End: 05-20-2024 Transitional care manage srvc 14 day discharge Lynda Rasheed MD Work Phone: [facility] - [place] Comment on above: Alcohol abuse (Prima ry Dx); Psoriasiform seborrheic dermatitis; Elevated liver enzymes; Screening for colon cancer; Elevated LFTs; ED (erectile dysfunction) of non-organic origin; Urinary frequency; Pulmonary nodule; Lombardo esophagus with esophagitis Start: 05-14-2024 End: 05-14-2024 Subsequent hospital visit by physician Luis Branch MD Work Phone: [facility] Addiction IOP Start: 05-14-2024 End: 05-14-2024 ambulatory [facility] Start: 05-07-2024 End: 05-10-2024 Evaluation and management of inpatient Johnny Hamilton DO Work Phone: [facility] Detox Unit 4E Comment on above: Alcohol withdrawal s yndrome with complication, with unspecified complication (HCC) (Primary Dx); Alcohol use disorder Start: 04-09-2024 End: 04-12-2024 Evaluation and management of inpatient Irisn Joao Whiteside DO Work Phone: [facility] Acuity Adaptable Unit AAU 2 Comment on above: Alcoholic intoxicati on without complication (CMS/HCC) (HCC) (Primary Dx) Start: 02-28-2024 End: 02-28-2024 ambulatory [facility] Start: 02-28-2024 End: 02-28-2024 Office outpatient new 45 minutes Myra Darden MD Work Phone: [facility] [place] Comment on above: Pulmonary emphysema, unspecified emphysema type (HCC) (Primary Dx); Pulmonary nodule; Cigarette nicotine dependence with other nicotine-induced disorder; Alcohol abuse Start: 02-18-2024 End: 02-18-2024 Documentation procedure Fadia Jolantaserena [facility] - [place] Comment on above: Care Coordination (L kaitlin Nodule Review Conference Recommendations 02/18/24) Start: 02-13-2024 End: 02-14-2024 Telephone encounter Fadia Hartley [facility] Lung Nodule [facility] - [place] Comment on above: Care Coordination (L kaitlin Rads 4A Lung Screening CT- Expedited lung nodule clinic eval recommended) Start: 02-11-2024 End: 02-11-2024 Subsequent hospital visit by physician Lynda Rasheed MD Work Phone: [facility] CT Comment on above: Current smoker Start: 02-11-2024 End: 02-11-2024 ambulatory [facility] Start: 02-06-2024 End: 02-06-2024 Refill Lynda Rasheed MD Work Phone: [facility] Comment on above: Arrived Start: 02-05-2024 End: 02-05-2024 Office outpatient visit 25 minutes Lynda Rasheed MD Work Phone: [facility] Comment on above: Screening PSA (prost ate specific antigen) (Primary Dx); Psoriasiform seborrheic dermatitis; Elevated liver enzymes; Screening for colon cancer; Current smoker Start: 02-05-2024 End: 02-05-2024 ambulatory [facility] Start: 02-03-2024 End: 02-03-2024 Subsequent hospital visit by physician Luis Branch MD Work Phone: [facility] Addiction IOP Comment on above: Arrived Start: 01-28-2024 End: 01-28-2024 ambulatory [facility] Start: 01-28-2024 End: 01-28-2024 Subsequent hospital [...] by physician Yakov Owen MD Work Phone: [facility] Addiction IOP Comment on above: Arrived Start: 12-03-2023 End: 12-03-2023 Refill Lynda Rasheed MD Work Phone: [facility] Comment on above: Chronic left shoulde r pain Start: 11-27-2023 End: 11-30-2023 Evaluation and management of inpatient Steve Demarco MD Work Phone: [facility] Medical Surgical Unit MSU 4S Comment on above: Alcohol withdrawal s yndrome with perceptual disturbance (HCC) (Primary Dx) Start: 08-26-2023 Refill Tiki Clark ett BUSINESS RISK ANALYST - ROTOPRINTER Work Phone: [facility] Detox Unit 4E Start: 08-01-2023 Refill Lynda pedersen MD Work Phone: [facility] Comment on above: Chronic left shoulde r pain Start: 07-27-2023 End: 07-31-2023 Evaluation and management of inpatient Triston Abraham MD Work Phone: [facility] Detox Unit 4E Comment on above: Alcohol withdrawal s yndrome without complication (HCC) (Primary Dx); Chronic left shoulder pain Start: 07-19-2023 Refill Lynda pedersen MD Work Phone: [facility] Comment on above: Chronic left [...] Start: 06-15-2023 Telephone encounter Karolina Krueger RN [facility] ED Start: 06-13-2023 Telephone encounter Catalino Watts [facility] ED Start: 06-06-2023 End: 06-06-2023 Subsequent hospital visit by physician Dori Franco MD Work Phone: [facility] Addiction IOP Comment on above: No Show Start: 05-20-2023 End: 05-23-2023 Evaluation and management of inpatient Scooter Luna MD Work Phone: [facility] Medical Surgical Unit MSU 1E Comment on above: Alcohol withdrawal s yndrome, uncomplicated (HCC) (Primary Dx) Start: 04-24-2023 Refill Lynda pedersen MD Work Phone: [facility] Comment on above: Chronic left shoulde r pain Start: 03-19-2023 End: 03-19-2023 Subsequent hospital visit by physician [facility] Xr Portable [facility] Radiology Comment on above: Arrived Start: 03-19-2023 End: 03-19-2023 Emergency department patient visit Catalino Waddell MD Work Phone: [facility] ED Comment on above: Contusion of left mi ddle finger without damage to nail, initial encounter (Primary Dx) Start: 02-18-2023 End: 02-18-2023 Emergency department patient visit Harjinder Darnell MD Work Phone: [facility] ED Comment on above: Dental abscess (Prim hali Dx) Start: 02-17-2023 End: 02-17-2023 Emergency department patient visit Harjinder Darnell MD Work Phone: [facility] ED Comment on above: Pain, dental (Primar y Dx) Start: 02-08-2023 End: 02-11-2023 Evaluation and management of inpatient Anusha Kothari MD Work Phone: [facility] Detox Unit 4E Comment on above: Alcohol withdrawal s yndrome without complication (HCC) (Primary Dx); Alcoholism (CMS/HCC) (HCC) Start: 01-28-2023 Refill Lynda pedersen MD Work Phone: [facility] Family [facility] Comment on above: Chronic left shoulde r pain Start: 12-26-2022 End: 12-26-2022 Office outpatient visit 25 minutes Lynda Rasheed MD Work Phone: [facility] Medicine Comment on above: Screening for colon cancer (Primary Dx); Lombardo's esophagus determined by endoscopy; Psoriasiform seborrheic dermatitis; Alcohol use disorder, severe (HCC); Lumbar back pain with radiculopathy affecting lower extremity; Cigarette smoker Start: 12-07-2022 Refill Lynda pedersen MD Work Phone: [facility] Start: 11-01-2022 End: 11-01-2022 ambulatory Lynda Rasheed MD Work Phone: [facility] Laboratory Comment on above: Arrived Hyperglycemia, unspe cified (Primary Dx); Other specified abnormal findings of blood chemistry Start: 10-09-2022 End: 10-09-2022 Office outpatient visit 25 minutes Papito Hood MD Work Phone: [facility] Comment on above: Alcohol use disorder , severe (HCC) (Primary Dx); Alcohol withdrawal syndrome with complication (HCC); Encounter for monitoring naltrexone therapy Start: 10-01-2022 Telephone encounter Lynda fish MD Work Phone: [facility] Comment on above: Results Start: 09-29-2022 End: 09-29-2022 ambulatory Lynda Rasheed MD Work Phone: [facility] Laboratory Comment on above: Arrived Abnormal levels of o ther serum enzymes (Primary Dx) Start: 09-25-2022 End: 09-25-2022 Office outpatient visit 25 minutes Lynda Rasheed MD Work Phone: [facility] Comment on above: Chronic left shoulde r pain (Primary Dx); Elevated liver enzymes; Psoriasis; Screening for colon cancer; Alcohol abuse Chronic left shoulde r pain (Primary Dx); Elevated liver enzymes; Psoriasiform seborrheic dermatitis; Screening for colon cancer; Alcohol abuse Start: 09-22-2022 Refill Lynda pedersen MD Work Phone: [facility] Comment on above: Chronic left shoulde r pain Start: 09-14-2022 Refill Lynda pedersen MD Work Phone: [facility] Comment on above: Elevated liver enzym es Start: 09-10-2022 End: 09-14-2022 Evaluation and management of inpatient Triston Abraham MD Work Phone: [facility] 4E DETOX Comment on above: Alcohol withdrawal s yndrome without complication (HCC) (Primary Dx); Alcohol use disorder Start: 08-01-2022 End: 08-01-2022 Office outpatient visit 25 minutes Lynda Rasheed MD Work Phone: [facility] Comment on above: Uncomplicated alcoho l dependence [...] 07-16-2022 Refill Lynda pedersen MD Work Phone: [facility] Comment on above: Chronic left shoulde r pain Start: 07-14-2022 Refill Lynda pedersen MD Work Phone: [facility] Comment on above: Chronic left shoulde r pain; Elevated liver enzymes; Psoriasis Start: 07-11-2022 Telephone encounter Lynda fish MD Work Phone: [facility] Comment on above: Results Start: 07-09-2022 End: 07-09-2022 ambulatory Lynda Rasheed MD Work Phone: [facility] Laboratory Start: 07-09-2022 End: 07-09-2022 Subsequent hospital visit by physician Lynda Rasheed MD Work Phone: [facility] Radiology Comment on above: Low back pain, unspe cified; Pain in left shoulder; Other chronic pain; Pain in right shoulder Abnormal levels of o ther serum enzymes (Primary Dx) Low back pain, unspe cified (Primary Dx); Pain in left shoulder; Other chronic pain; Pain in right shoulder Start: 06-12-2022 Telephone encounter Rosalina HOOKS Work Phone: [facility] Dermatology Start: 06-12-2022 End: 06-12-2022 Office outpatient visit 25 minutes Lynda Rasheed MD Work Phone: [facility] Comment on above: Elevated liver enzym es (Primary Dx); Chronic left shoulder pain; Psoriasis; Lumbar back pain; Screening for colon cancer; Chronic pain of both shoulders; Alcohol abuse Start: 09-26-2021 End: 09-29-2021 Evaluation and management of inpatient Dipesh Beckman DO Work Phone: [facility] 2E TELEMETRY Comment on above: [...] by physician Lynda Rasheed MD Work Phone: [facility] Laboratory Comment on above: Colon cancer screeni ng; Elevated LFTs Start: 06-09-2020 End: 06-10-2020 Emergency department patient visit Antonio Mauro Work Phone: [facility] 2E TELEMETRY Comment on above: Hematemesis with rubén sea (Primary Dx); Acute alcoholic intoxication without complication (HCC); Tachycardia; Elevated lactic acid level Start: 11-08-2019 End: 11-08-2019 Emergency department patient visit Harjinder Lebron Felixpatricia Work Phone: [facility] ED Comment on above: Acute pharyngitis, u nspecified etiology (Primary Dx) Start: 08-31-2019 Patient encounter procedure Lyndaotilia CaoAlektochet [employer], BILLY Start: 08-19-2019 Patient encounter procedure Lydna Movius [employer], BILLY Start: 08-19-2019 End: 08-19-2019 Office outpatient visit 25 minutes Lynda Rasheed Work Phone: [facility] Comment on above: Localized swelling, mass and lump, neck (Primary Dx) Start: 06-05-2019 Patient encounter procedure Lynda Rasheed [employer], BILLY Start: 06-05-2019 End: 06-05-2019 Emergency department patient visit Catalino Wilcox Work Phone: [facility] Comment on above: Acute exacerbation o f chronic low back pain (Primary Dx); Sciatica of left side Start: 03-08-2019 End: 03-08-2019 Emergency department patient visit José Miguel Sharmila Talbot Work Phone: [facility] ED Comment on above: Strain of lumbar reg ion, initial encounter (Primary Dx) Start: 02-14-2019 End: 02-14-2019 Subsequent hospital visit by physician Lynda Rasheed Work Phone: [facility] Laboratory Comment on above: Mixed hyperlipidemia ; Eczema, unspecified type; Cough Procedures Date Procedure Procedure Detail Performing Clinician Start: 09-19-2024 Serum inorganic phosphate measurement [facility] Start: 09-18-2024 Estimated creatinine clearance [facility] Start: 09-17-2024 Estimated creatinine clearance [facility] Doctor Start: 09-17-2024 Methadone measurement, urine Out [facility] Do ctor Start: 08-14-2024 Follow-up visit SAURABH [...] Start: 06-02-2024 Comprehensive metabolic panel Shelly emerson BUSINESS RISK ANALYST - ROTOPRINTER Work Phone: Start: 06-02-2024 End: 06-02-2024 Drug test def 1-7 classes Shelly Clarke BUSINESS RISK ANALYST - ROTOPRINTER Work Phone: Start: 06-02-2024 SARS-CoV-2 (COVID-19) Ag [Presence] in Respiratory specimen by Rapid immunoassay Shelly Clarke APRN - ROTOPRINTER Work Phone: Start: 05-25-2024 Ct cervical spine w/o contrast material Goyo Melara MD Work Phone: Start: 05-25-2024 Ct head/brain w/o contrast material Goyo Melara MD Work Phone: Start: 05-20-2024 Follow-up visit SAURABH MORAN Start: 05-07-2024 Comprehensive metabolic panel Shelly Frank ki BUSINESS RISK ANALYST - ROTOPRINTER Work Phone: Start: 05-07-2024 End: 05-07-2024 Drug test def 1-7 classes Shelly Clarke BUSINESS RISK ANALYST - ROTOPRINTER Work Phone: Start: 05-07-2024 SARS-CoV-2 (COVID-19) Ag [Presence] in Respiratory specimen by Rapid immunoassay Shelly Clarke BUSINESS RISK ANALYST [employer] Work Phone: Start: 04-11-2024 Comprehensive metabolic panel [...] End: 11-27-2023 Comprehensive metabolic panel Shelly emerson BUSINESS RISK ANALYST - ROTOPRINTER Work Phone: Start: 11-27-2023 End: 11-27-2023 Drug test def 1-7 classes Shelly Clarke BUSINESS RISK ANALYST - ROTOPRINTER Work Phone: Start: 11-27-2023 SARS-CoV-2 (COVID-19) Ag [Presence] in Respiratory specimen by Rapid immunoassay Shelly Clarke BUSINESS RISK ANALYST - ROTOPRINTER Work Phone: Start: 07-30-2023 OXYGEN THERAPY Mainor M Fredy DO Work Phone: Start: 07-30-2023 Drug screen quantitative phenobarbital Tiki Ponce BUSINESS RISK ANALYST - QUILL COLLECTOR Work Phone: Start: 07-29-2023 OXYGEN THERAPY Mainor M Fredy DO Work Phone: Start: 07-28-2023 OXYGEN THERAPY Mainor M Fredy DO Work Phone: Start: 07-28-2023 OXYGEN THERAPY Mainor M Fredy DO Work Phone: Start: 07-27-2023 Ct abdomen & pelvis w/contrast material Triston Abraham MD Work Phone: Start: 07-27-2023 SARS-CoV-2 (COVID-19) Ag [Presence] in Respiratory specimen by Rapid immunoassay Triston Abraahm MD Work Phone: Start: 07-27-2023 Basic metabolic [...] 05-20-2023 MEDICATION ASSISTED TREATMENT PANEL Eda Enriquez BUSINESS RISK ANALYST - ROTOPRINTER Work Phone: Start: 05-20-2023 Urinalysis complete panel [...] Start: 02-11-2023 Hepatic function panel Tiki Ponce BUSINESS RISK ANALYST - QUILL COLLECTOR Work Phone: Start: 02-10-2023 Hepatic function panel Tiki Ponce BUSINESS RISK ANALYST - QUILL COLLECTOR Work Phone: Start: 02-08-2023 Urnls dip stick/tablet [...] lds trcg only w/o i&r Robyn Edmond BUSINESS RISK ANALYST - ROTOPRINTER Work Phone: Start: 09-10-2022 Ct abdomen & [...] panel Lynda Rasheed Work Phone: Start: 02-13-2018 [facility] Plan of Treatment Date Care Activity Detail Author Start: 11-14-2042 RSV Immunization for Adults (1 - 1-dose 75+ series) RSV Immunization for Adults (1 - 1-dose 75+ series) [facility] Start: 11-14-2032 Pneumococcal 0-64 years Vaccine (2 of 2 - PPSV23) Pneumococcal 0-64 years Vaccine (2 of 2 - PPSV23) [facility] Start: 11-14-2032 Pneumococcal 0-64 years Vaccine (2 of 2) Pneumococcal 0-64 years Vaccine (2 of 2) [facility] Work Phone: Start: 2027 RSV Immunization aged 60 or older (1 - 1-dose 60+ series) RSV Immunization aged 60 or older (1 - 1-dose 60+ series) [facility] Start: 07-10-[address] [facility] Start: 09-01-[address] [facility] Start: 06-11-2025 Screening for malignant neoplasm of lung Lung Cancer Screening [facility] Start: 02-10-2025 Screening for malignant neoplasm of lung Lung Cancer Screening [facility] Start: 02-04-2025 Depression Monitoring Depression Monitoring [facility] Start: 12-05-2024 Depression Monitoring Depression Monitoring [facility] Start: 11-30-[address] [facility] Start: 11-05-2024 Depression Monitoring Depression Monitoring [facility] Start: 10-21-2024 End: 10-21-2024 Patient encounter procedure 10/21/2024 3:20 PM EDT [facility] [address] [place] [address] Lynda Rasheed MD [address] [place] [address] [facility] [place] Start: 09-20-2024 Patient discharge [facility] Start: 09-19-2024 [facility] Start: 09-17-2024 Following clinical pathway protocol [facility] Start: 09-17-2024 Ambulation without limitation [facility] Start: 09-17-2024 Assessment of risk of venous thromboembolism [facility] Start: 09-17-2024 Inhalation therapy procedure [facility] Start: 09-17-2024 Insertion of catheter into peripheral vein [facility] Start: 09-17-2024 Measuring intake and output [place] Start: 09-17-2024 Providing care according to standard [facility] Start: 09-17-2024 Provision of activity privileges [facility] Start: 09-17-2024 Referral to service [facility] Start: 09-17-2024 Seizure precautions [facility] Start: 09-17-2024 [facility] Start: 09-17-2024 Prothrombin time [facility] Start: 09-17-2024 Verification routine [facility] Start: 09-17-2024 Admission procedure [facility] Start: 09-17-2024 Hospital admission, emergency, from emergency room, medical nature [facility] Start: 09-17-2024 End: 09-17-2024 [facility] Start: 08-14-2024 End: 08-14-2024 Patient encounter procedure 08/14/2024 9:40 AM EDT [facility] [address] [place] [address] Lynda Rasheed MD [address] [place] [address] [facility] Start: 08-13-2024 End: 08-13-2024 Patient encounter procedure 08/13/2024 1:30 PM EDT Appointment [facility] Addiction IOP [address] [place] [phone] Luis Branch MD [address] [place] [address] [address] Ammon Abdul, [facility] Addiction IOP Start: 07-28-2024 Depression Monitoring Depression Monitoring [facility] Start: 07-20-2024 Depression Monitoring Depression Monitoring [facility] Start: 06-19-2024 End: 06-19-2024 Patient encounter procedure 06/19/2024 1:40 PM EDT Office Visit [facility] Lung Nodule [facility] [address] [place] [address] Yasemin Quintero, BUSINESS RISK ANALYST - ROTOPRINTER [address] [place] [address] [facility] Lung Nodule [facility] Start: 06-16-2024 End: 06-16-2025 Erythrocyte sedimentation rate Sedimentation rate, automated Lab Routine Lumbar back pain Expected: 06/16/2024 (Approximate), Expires: 06/16/2025 [facility] Comment on above: Expected: 06/16/2024 (Approximate), Expi res: 06/16/2025 Start: 06-16-2024 End: 06-16-2025 Nuclear Ab [Titer] in Serum by Immunofluorescence [facility] Lab Routine Lumbar back pain Expected: 06/16/2024 (Approximate), Expires: 06/16/2025 [facility] Comment on above: Expected: 06/16/2024 (Approximate), Expi res: 06/16/2025 Start: 06-16-2024 End: 06-16-2024 Patient encounter procedure 06/16/2024 2:00 PM EDT Office Visit [facility] [address] [place] [address] Lynda Rasheed MD [address] [place], [place] [id number] [facility] Start: 06-16-2024 End: 06-16-2025 Rheumatoid factor [Units/volume] in Serum or Plasma Rheumatoid factor Lab Routine Lumbar back pain Expected: 06/16/2024 (Approximate), Expires: 06/16/2025 [facility] Comment on above: Expected: 06/16/2024 (Approximate), Expi res: 06/16/2025 Start: 06-16-2024 End: 06-16-2025 XR Lumbar spine Views W flexion and W extension XR lumbar spine 4-5 view Imaging Routine Lumbar back pain Expected: 06/16/2024, Expires: 06/16/2025 [facility] Work Phone: Comment on above: Expected: 06/16/2024, Expires: Start: 06-11-2024 End: 06-11-2024 Patient encounter procedure 06/11/2024 4:15 PM EDT Appointment [facility] CT [address] [place] [address] Myra Darden MD [address] [place] [id number] [facility] CT Start: 06-11-2024 Subsequent hospital visit by physician 06/11/2024 4:15 PM EDT Hospital Encounter [facility] [address] [place] [address] Myra Darden MD [address] [place], [place] [id number] [facility] CT Start: 06-05-2024 End: 06-05-2024 Patient encounter procedure 06/05/2024 10:20 AM EST Office Visit [facility] [address] [phone] Kristin Lara, BUSINESS RISK ANALYST - ROTOPRINTER [address] [place] [address] [facility] Nod[facility] Start: 05-29-2024 End: 05-29-2024 Patient encounter procedure 05/29/2024 3:30 PM EST Appointment [facility] CT Imaging [address] [facility] [place] [address] Myra Darden MD [address] [place] [address] [facility] CT Imaging Start: 05-29-2024 End: 02-27-2025 CT Chest WO contrast CT chest wo IV contrast Imaging Routine Pulmonary nodule Expected: 05/29/2024, Expires: 02/27/2025 [facility] Work Phone: Comment on above: Expected: 05/29/2024, Expires: Start: 05-20-2024 End: 05-20-2025 Bacteria identified in Urine by Culture Urine culture (clean catch) Microbiology Routine ED (erectile dysfunction) of non-organic origin Urinary frequency Expected: 05/20/2024 (Approximate), Expires: 05/20/2025 [facility] Comment on above: Expected: 05/20/2024 (Approximate), Expi res: 05/20/2025 Start: 05-20-2024 End: 05-20-2025 CBC W Auto Differential panel - Blood CBC auto differential Lab Routine Psoriasiform seborrheic dermatitis Elevated liver enzymes Expected: 05/20/2024 (Approximate), Expires: 05/20/2025 [facility] Work Phone: Comment on above: Expected: 05/20/2024 (Approximate), Expi res: 05/20/2025 Start: 05-20-2024 End: 05-20-2025 Urinalysis complete panel - Urine Urinalysis with reflex microscopic (clean catch) Lab Routine ED (erectile dysfunction) of non-organic origin Urinary frequency Expected: 05/20/2024 (Approximate), Expires: 05/20/2025 [facility] Comment on above: Expected: 05/20/2024 (Approximate), Expi res: 05/20/2025 Start: 05-20-2024 End: 05-20-2025 US Abdomen US abdomen complete Imaging Routine Elevated LFTs Expected: 05/20/2024, Expires: 05/20/2025 [facility] Comment on above: Expected: 05/20/2024, Expires: Start: 05-20-2024 End: 05-20-2024 Patient encounter procedure 05/20/2024 1:00 PM EST [facility] [address] [place] [address] Lynda Rasheed MD [address] [place], [place] [id number] [facility] Start: 05-08-2024 End: 05-08-2024 Patient encounter procedure 05/08/2024 8:00 AM EST Office Visit [facility] [address] [place] [address] Lynda Rasheed MD [address] [place], [place] [id number] [facility] Start: 04-24-2024 End: 04-24-2024 Patient encounter procedure 04/24/2024 11:00 AM EST Office Visit [facility] [place] [address] [place] [address] Lynda Rasheed MD [address] [place] [address] [facility] Start: 03-26-2024 End: 03-26-2024 Patient encounter procedure 03/26/2024 5:30 PM EST Appointment [facility] [address] [phone] Luis Branch MD [address] [address] Inés Hooper [facility] Start: 03-24-2024 End: 03-24-2024 Patient encounter procedure 03/24/2024 5:30 PM EST Appointment [facility] [address] [place] [address] Luis Branch MD [address] [address] Inés Hooper [facility] Start: 03-23-2024 End: 03-23-2024 Patient encounter procedure 03/23/2024 5:30 PM EST Appointment [facility] [address] [place] [address] Luis Branch MD [address] [address] Inés Hooper [facility] Start: 03-19-2024 End: 03-19-2024 Patient encounter procedure 03/19/2024 5:30 PM EST Appointment [facility] [address] [place] [address] Luis Branch MD [address] [address] Inés Hooper [facility] Start: 03-17-2024 End: 03-17-2024 Patient encounter procedure 03/17/2024 5:30 PM EST Appointment [facility] [address] [place] [address] Luis Branch MD [address] [address] Inés Hooper [facility] Start: 03-16-2024 End: 03-16-2024 Patient encounter procedure 03/16/2024 5:30 PM EST Appointment [facility] [address] [place] [address] Luis Branch MD [address] [address] Inés Hooper [facility] Start: 03-12-2024 End: 03-12-2024 Patient encounter procedure 03/12/2024 5:30 PM EST Appointment [facility] [address] [place] [address] Luis Branch MD [address] [phone] Inés Hooper [facility] Start: 03-10-2024 End: 03-10-2024 Patient encounter procedure 03/10/2024 5:30 PM EST Appointment [facility] [address] [place] [address] Luis Branch MD [address] [phone] Inés Hooper [facility] Start: 03-09-2024 End: 03-09-2024 Patient encounter procedure 03/09/2024 5:30 PM EST Appointment [facility] [address] [place] [address] Luis Branch MD [address] [address] Inés Hooper [facility] Start: 03-05-2024 End: 03-05-2024 Patient encounter procedure 03/05/2024 5:30 PM EST Appointment [facility] [address] [place] [address] Luis Branch MD [address] [phone] In[facility] Start: 03-03-2024 End: 03-03-2024 Patient encounter procedure 03/03/2024 5:30 PM EST Appointment [facility] [address] [place] [address] Luis Branch MD [address] [address] Inés Hooper [facility] Start: 03-02-2024 End: 03-02-2024 Patient encounter procedure 03/02/2024 5:30 PM EST Appointment [facility] [address] [place] [address] Luis Branch MD [address] [address] Inés Hooper [facility] Start: 02-28-2024 End: 02-28-2024 Patient encounter procedure 02/28/2024 9:30 AM EST Office Visit [facility] [place] [address] [phone] Myra Darden MD [address] [address] [facility] [place] Start: 02-27-2024 End: 02-27-2024 Patient encounter procedure 02/27/2024 5:30 PM EST Appointment [facility] [address] [place] [address] Luis Branch MD [address] [address] Inés Hooper [facility] Start: 02-25-2024 End: 02-25-2024 Patient encounter procedure 02/25/2024 5:30 PM EST Appointment [facility] [address] [place] [address] Luis Branch MD [address] [address] Inés Hooper [facility] Start: 02-24-2024 End: 02-24-2024 Patient encounter procedure 02/24/2024 5:30 PM EST Appointment [facility] [address] [place] [address] Luis Branch MD [address] [phone] Inés Hooper [facility] Start: 02-20-2024 End: 02-20-2024 Patient encounter procedure 02/20/2024 5:30 PM EST Appointment [facility] [address] [place] [address] Luis Branch MD [address] [address] Inés Hooper [facility] Start: 02-18-2024 End: 02-18-2024 Patient encounter procedure 02/18/2024 5:30 PM EST Appointment [facility] [address] [place] [address] Luis Branch MD [address] [address] Inés Hooper [facility] Start: 02-17-2024 End: 02-17-2024 Patient encounter procedure 02/17/2024 5:30 PM EST Appointment [facility] [address] [place] [address] Luis Branch MD [address] [phone] Inés Hooper [facility] Start: 02-15-2024 Lipid panel Lipid screen [facility] Start: 02-15-2024 Lipid screen Lipid screen [facility] Start: 02-13-2024 End: 02-13-2024 Patient encounter procedure 02/13/2024 5:30 PM EST Appointment [facility] [address] [place] [address] Luis Branch MD [address] [address] Inés Hooper [facility] Start: 02-12-2024 End: 02-12-2024 Patient encounter procedure 02/12/2024 2:00 PM EST Office Visit [facility] [address] [place] [phone] Robyn Edmond APRN - ROTOPRINTER [address] [place] [address] [facility] Start: 02-11-2024 End: 02-11-2024 Patient encounter procedure 02/11/2024 5:30 PM EST Appointment [facility] [address] [place] [address] Luis Branch MD [address] [address] Inés Hooper [facility] Start: 02-10-2024 End: 02-10-2024 Patient encounter procedure 02/10/2024 5:30 PM EST Appointment [facility] [address] [place] [address] Luis Branch MD [address] [address] Inés Hooper [facility] Start: 02-06-2024 End: 02-06-2024 Patient encounter procedure 02/06/2024 5:30 PM EST Appointment [facility] [address] [place] [phone] Luis Branch MD [address] [place] [phone] [facility] Start: 02-05-2024 End: 02-04-2025 Comprehensive metabolic 1998 panel - Serum or Plasma Comprehensive metabolic panel Lab Routine Psoriasiform seborrheic dermatitis Elevated liver enzymes Expected: 02/05/2024 (Approximate), Expires: 02/04/2025 [facility] Work Phone: Comment on above: Expected: 02/05/2024 (Approximate), Expi res: 02/04/2025 Start: 02-05-2024 End: 02-04-2025 CT Chest for screening WO contrast CT lung screening low dose Imaging Routine Current smoker Expected: 02/05/2024, Expires: 02/04/2025 [facility] Comment on above: Expected: 02/05/2024, Expires: Start: 02-05-2024 End: 02-04-2025 Lipid 1996 panel - Serum or Plasma Lipid panel Lab Routine Psoriasiform seborrheic dermatitis Elevated liver enzymes Expected: 02/05/2024 (Approximate), Expires: 02/04/2025 [facility] Comment on above: Expected: 02/05/2024 (Approximate), Expi res: 02/04/2025 Start: 02-05-2024 End: 02-04-2025 PSA screening PSA Screening Lab Routine Psoriasiform seborrheic dermatitis Elevated liver enzymes Screening PSA (prostate specific antigen) Expected: 02/05/2024 (Approximate), Expires: 02/04/2025 [facility] Comment on above: Expected: 02/05/2024 (Approximate), Expi res: 02/04/2025 Start: 02-05-2024 End: 02-05-2024 Patient encounter procedure 02/05/2024 1:30 PM EST Appointment [facility] [address] [place] [phone] Luis Branch MD [address] [place], [place] [phone] [facility] Start: 02-05-2024 End: 02-05-2024 Patient encounter procedure 02/05/2024 8:20 AM EST Office Visit [facility] [address] [place] [address] Lynda Rasheed MD [address] [place], [place] [address] [facility] Start: 02-03-2024 End: 02-03-2024 Patient encounter procedure 02/03/2024 5:30 PM EST Appointment [facility] [address] [place] [phone] Luis Branch MD [address] [facility] [address] [place], [place] [phone] Inés Hooper [facility] Start: 01-28-2024 End: 01-28-2024 Patient encounter procedure 01/28/2024 1:30 PM EDT Appointment [facility] [address] [place] [address] Luis Branch MD [address] [facility] [address] [place] [address] Ammon Abdul [facility] Start: 01-26-2024 Depression Monitoring Depression Monitoring [facility] Start: 01-08-2024 Depresssion Monitoring Depresssion Monitoring [facility] Start: 12-17-2023 End: 12-17-2023 Patient encounter procedure [facility] Start: 12-11-2023 End: 12-11-2023 Patient encounter procedure 12/11/2023 1:00 PM EDT Appointment [facility] [address] [place] [address] Yakov Owen MD [address] [place], [place] [phone] Rosalee Hamilton [facility] Start: 12-06-2023 End: 12-06-2023 Patient encounter procedure 12/06/2023 10:00 AM EDT Office Visit Count Includes [facility] [address] [place] [phone] Luis Branch MD [address] [facility] [address] [place] [address] [facility] Start: 12-01-2023 COVID-19 Vaccine ( season) COVID-19 Vaccine () [facility] Start: 12-01-2023 COVID-19 Vaccine ( season) COVID-19 Vaccine () [facility] Start: 12-01-[address] [facility] Start: 11-02-2023 Diabetes mellitus screening Diabetes Screening [facility] Start: 09-26-2023 Pneumococcal Vaccine: 50+ Years (2 of 2 - PCV) Pneumococcal Vaccine: 50+ Years (2 of 2 - PCV) [facility] Start: 09-26-2023 Pneumococcal Vaccine: Pediatrics (0 to 5 Years) and At-Risk Patients (6 to 64 Years) (2 - PCV) Pneumococcal Vaccine: Pediatrics (0 to 5 Years) and At-Risk Patients (6 to 64 Years) (2 - PCV) [facility] Start: 09-26-2023 Pneumococcal Vaccine: Pediatrics (0 to 5 Years) and At-Risk Patients (6 to 64 Years) (2 of 2 - PCV) Pneumococcal Vaccine: Pediatrics (0 to 5 Years) and At-Risk Patients (6 to 64 Years) (2 of 2 - PCV) [facility] Start: 08-09-2023 Depresssion Monitoring Depresssion Monitoring [facility] Start: 08-05-2023 End: 08-05-2023 Patient encounter procedure 08/05/2023 1:00 PM EDT Appointment [facility] [address] [place] [phone] Dori Franco MD [address] [facility] [address] [place] [address] Kyle Gold, [facility] Start: 07-10-2023 Lipid [address] Lipid Panel [facility] Start: 07-04-2023 End: 07-04-2023 Patient encounter procedure 07/04/2023 1:40 PM EDT Office Visit [facility] [address] [place] [address] Lynda Rasheed MD [address] [place], [place] [address] [facility] Start: 06-06-2023 End: 06-06-2023 Patient encounter procedure 06/06/2023 1:30 PM EST Appointment [facility] Addiction IOP [address] [place] [address] Dori Franco MD [address] [place] [address] 115 [place] [address] Ammon Abdul, [facility] Start: 04-11-2023 Depresssion Monitoring Depresssion Monitoring [facility] Start: 04-03-2023 End: 04-03-2023 Patient encounter procedure [facility] Start: 03-12-2023 Depresssion Monitoring Depresssion Monitoring [facility] Start: 01-09-2023 End: 10-10-2023 Comprehensive metabolic 1998 panel - Serum or Plasma Comprehensive metabolic panel Lab Routine Alcohol use disorder, severe (HCC) Alcohol withdrawal syndrome with complication (HCC) Encounter for monitoring naltrexone therapy Expected: 01/09/2023 (Approximate), Expires: 10/10/2023 [facility] Work Phone: Comment on above: Expected: 01/09/2023 (Approximate), Expi res: 10/10/2023 Start: 12-26-2022 End: 12-26-2022 Patient encounter procedure [facility] Start: 11-30-2022 COVID-19 Vaccine ( season) COVID-19 Vaccine ( season) [facility] Start: 11-30-[address] [facility] Start: 11-13-2022 End: 11-13-2022 Patient encounter procedure 11/13/2022 1:00 PM EDT Office Visit [facility] General Surgery [address] [place] [phone] Mack Hill MD [address] [facility] [address] [place] [address] [facility] General Surgery Start: 11-09-2022 End: 11-09-2022 Patient encounter procedure 11/09/2022 1:00 PM EDT Appointment [facility] Non-Invasive Cardiology [address] [place] [address] [facility] Non-Invasive Cardiology Start: 11-06-2022 End: 11-06-2022 Patient encounter procedure 11/06/2022 4:00 PM EDT Office Visit [facility] [address] [facility] [address] [place] [phone] Papito Hood MD [address] [place] [address] [facility] Start: 10-09-2022 End: 10-09-2022 Patient encounter procedure 10/09/2022 9:00 AM EDT Office Visit [facility] [address] [facility] [address] [place] [phone] Papito Hood MD [address] [place] [address] [facility] Start: 10-01-2022 End: 10-02-2023 Cobalamin (Vitamin B12) [Mass/volume] in Serum or Plasma Vitamin B12 Lab Routine Hyperglycemia Abnormal CBC Expected: 10/01/2022 (Approximate), Expires: 10/02/2023 [facility] Work Phone: Comment on above: Expected: 10/01/2022 (Approximate), Expi res: 10/02/2023 Start: 10-01-2022 End: 10-02-2023 Hemoglobin A1c/Hemoglobin.total in Blood Hemoglobin A1c Lab Routine Hyperglycemia Abnormal CBC Expected: 10/01/2022 (Approximate), Expires: 10/02/2023 [facility] Comment on above: Expected: 10/01/2022 (Approximate), Expi res: 10/02/2023 Start: 10-01-2022 End: 10-02-2023 Iron and Iron binding capacity panel - Serum or Plasma Iron level Lab Routine Hyperglycemia Abnormal CBC Expected: 10/01/2022 (Approximate), Expires: 10/02/2023 [facility] Comment on above: Expected: 10/01/2022 (Approximate), Expi res: 10/02/2023 Start: 09-25-2022 End: 09-26-2023 CBC W Auto Differential panel - Blood CBC auto differential Lab Routine Elevated liver enzymes Expected: 09/25/2022 (Approximate), Expires: 09/26/2023 [facility] Work Phone: Comment on above: Expected: 09/25/2022 (Approximate), Expi res: 09/26/2023 Start: 09-25-2022 End: 09-26-2023 Comprehensive metabolic 1998 panel - Serum or Plasma Comprehensive metabolic panel Lab Routine Elevated liver enzymes Expected: 09/25/2022 (Approximate), Expires: 09/26/2023 [facility] Comment on above: Expected: 09/25/2022 (Approximate), Expi res: 09/26/2023 Start: 09-25-2022 End: 09-26-2023 Hepatitis 1996 panel - Serum Hepatitis panel, acute Lab Routine Elevated liver enzymes Expected: 09/25/2022 (Approximate), Expires: 09/26/2023 [facility] Comment on above: Expected: 09/25/2022 (Approximate), Expi res: 09/26/2023 Start: 09-25-2022 End: 09-25-2022 Patient encounter procedure [facility] Start: 09-19-2022 End: 09-19-2022 Patient encounter procedure 09/19/2022 8:30 AM EDT Appointment [facility] [address] [place] [phone] Aurora Aparicio [facility]CC [facility] Start: 08-01-2022 End: 08-02-2023 Comprehensive metabolic 1998 panel - Serum or Plasma Comprehensive metabolic panel Lab Routine SOB (shortness of breath) Expected: 08/01/2022 (Approximate), Expires: 08/02/2023 [facility] Comment on above: Expected: 08/01/2022 (Approximate), Expi res: 08/02/2023 Start: 08-01-2022 End: 08-01-2024 US Heart Transthoracic Transthoracic echocardiogram (TTE) complete with contrast, bubble, strain, and 3D PRN CV Echocardiography Routine Abnormal EKG Expected: 08/01/2022 (Approximate), Expires: 08/01/2024 [facility] Work Phone: Comment on above: Expected: 08/01/2022 (Approximate), Expi res: 08/01/2024 Start: 08-01-2022 End: 08-02-2023 XR Chest 2 Views XR chest 2 views Imaging Routine SOB (shortness of breath) Expected: 08/01/2022, Expires: 08/02/2023 [facility] Comment on above: Expected: 08/01/2022, Expires: Start: 08-01-2022 End: 08-01-2022 Patient encounter procedure 08/01/2022 Office Visit Family Medicine Lynda Rasheed MD [address] [place] [phone] [facility] Start: 07-23-2022 End: 07-23-2022 Esophagogastroduodenoscopy transoral diagnostic EGD DIAGNOSTIC Hematemesis, unspecified whether nausea present 07/23/2022 9:34 AM EDT [facility] Gastroenterology Start: 07-11-2022 End: 07-12-2023 Hemoglobin A1c/Hemoglobin.total in Blood Hemoglobin A1c Lab Routine Hyperglycemia Expected: 07/11/2022 (Approximate), Expires: 07/12/2023 [employer] Work Phone: Comment on above: Expected: 07/11/2022 (Approximate), Expi res: 07/12/2023 Start: 07-09-2022 End: 07-10-2023 XR Shoulder - right 2 Views XR shoulder 2+ views right Imaging Routine Low back pain, unspecified Pain in left shoulder Other chronic pain Pain in right shoulder Expected: 07/09/2022, Expires: 07/10/2023 [facility] Work Phone: Comment on above: Expected: 07/09/2022, Expires: Start: 06-12-2022 End: 06-13-2023 CBC W Auto Differential panel - Blood CBC auto differential Lab Routine Elevated liver enzymes Expected: 06/12/2022 (Approximate), Expires: 06/13/2023 [facility] Comment on above: Expected: 06/12/2022 (Approximate), Expi res: 06/13/2023 Start: 06-12-2022 End: 06-13-2023 Comprehensive metabolic 1998 panel - Serum or Plasma Comprehensive metabolic panel Lab Routine Elevated liver enzymes Expected: 06/12/2022 (Approximate), Expires: 06/13/2023 [facility] Comment on above: Expected: 06/12/2022 (Approximate), Expi res: 06/13/2023 Start: 06-12-2022 End: 06-13-2023 Lipid 1996 panel - Serum or Plasma Lipid panel Lab Routine Elevated liver enzymes Expected: 06/12/2022 (Approximate), Expires: 06/13/2023 [facility] Comment on above: Expected: 06/12/2022 (Approximate), Expi res: 06/13/2023 Start: 06-12-2022 End: 06-13-[address] [facility] Comment on above: Expected: 06/12/2022 (Approximate), Expi res: 06/13/2023 Start: 06-12-2022 End: 06-13-2023 XR Lumbar spine 4 Views XR lumbar spine complete 4+ views Imaging Routine Lumbar back pain Expected: 06/12/2022, Expires: 06/13/2023 [facility] Comment on above: Expected: 06/12/2022, Expires: Start: 06-12-2022 End: 06-13-2023 XR Shoulder - left 2 Views XR shoulder 2+ views left Imaging Routine Chronic left shoulder pain Expected: 06/12/2022, Expires: 06/13/2023 [facility] Work Phone: Comment on above: Expected: 06/12/2022, Expires: 4 Start: 06-12-2022 End: 06-13-2023 XR Shoulder - right 2 Views XR shoulder 2+ views right Imaging Routine Chronic pain of both shoulders Expected: 06/12/2022, Expires: 06/13/2023 [facility] Comment on above: Expected: 06/12/2022, Expires: Start: 11-30-2021 Influenza vaccination [facility] Start: 09-01-2021 Lipid panel [facility] Start: 06-23-2021 End: 06-23-2021 Patient encounter procedure 06/23/2021 Office Visit Family Medicine Lynda Rasheed MD [address] [place] [phone] [facility] Start: 05-04-2021 COVID-19 Vaccine (4 - Booster for Pfizer series) COVID-19 Vaccine (4 - Booster for Pfizer series) [facility] Start: 05-04-2021 COVID-19 Vaccine (4 - Pfizer series) COVID-19 Vaccine (4 - Pfizer series) [facility] Start: 12-15-2020 End: 12-15-2020 Patient encounter procedure 12/15/2020 Appointment IP Unit Sotero Madsen MD [address] [place] [address] 10 [place], [place] [id number] [facility] Start: 11-30-2020 Influenza vaccination [facility] Work Phone: Start: 11-22-2020 End: 11-22-2020 Telemedicine consultation with patient 11/22/2020 Telemedicine Family Medicine Lynda Rasheed MD [address] [place] [id number] [facility] Start: 09-13-2020 End: 09-13-2020 Patient encounter procedure 09/13/2020 Office Visit General Surgery Sotero Madsen MD [address] [place] [address] [address] [place] [address] [phone] Gen Surg - [facility] Start: 12-01-2019 Influenza vaccination Flu vaccine (#1) [place], [place] Start: 06-15-2019 End: 06-15-2019 Office Visit 06/15/2019 Office Visit Family Medicine Lynda Rasheed MD [address] [place] [phone] [facility] Start: 01-24-2018 Pneumococcal 0-64 years Vaccine (2 - PCV) Pneumococcal 0-64 years Vaccine (2 - PCV) [facility] Start: 01-24-2018 Pneumococcal Vaccine: Pediatrics (0 to 5 Years) and At-Risk Patients (6 to 64 Years) (2 - PCV) Pneumococcal Vaccine: Pediatrics (0 to 5 Years) and At-Risk Patients (6 to 64 Years) (2 - PCV) [facility] Start: 11-14-2017 Colon cancer screen colonoscopy Colon cancer screen colonoscopy [place] Start: 11-14-2017 Screening for malignant neoplasm of colon Colon cancer screen colonoscopy [place] Start: 11-14-2017 Screening for malignant neoplasm of lung [facility] Start: 11-14-2017 Shingles Vaccine (1 of 2) Shingles Vaccine (1 of 2) [facility] Start: 11-14-2017 Zoster Vaccines (1 of 2) Zoster Vaccines (1 of 2) [facility] Start: 11-14-2012 Screening for malignant neoplasm of colon [facility] Start: 2007 Diabetes screen Diabetes screen [facility] Work Phone: Start: 11-14-2002 Diabetes screen Diabetes screen [facility] Start: 11-14-1986 DTaP/Tdap/Td vaccine (1 - Tdap) DTaP/Tdap/Td vaccine (1 - Tdap) [facility] Start: 11-14-1986 DTaP/Tdap/Td Vaccines (1 - Tdap) DTaP/Tdap/Td Vaccines (1 - Tdap) [facility] Start: 11-14-1986 Hepatitis A Vaccines (1 of 2 - Risk 2-dose series) Hepatitis A Vaccines (1 of 2 - Risk 2-dose series) [facility] Start: 11-14-1986 Hepatitis B Vaccines (1 of 3 - 19+ 3-dose series) Hepatitis B Vaccines (1 of 3 - 19+ 3-dose series) [facility] Start: 11-14-1985 Diabetes mellitus screening Diabetes Screening [facility] Start: 1983 COVID-19 Vaccine (1) COVID-19 Vaccine (1) [facility] Work Phone: Start: 1979 Depression Monitoring Depression Monitoring [facility] Start: 1979 Depresssion Monitoring Depresssion Monitoring [facility] Start: 11-14-1978 DTaP/Tdap/Td vaccine (1 - Tdap) DTaP/Tdap/Td vaccine (1 - Tdap) [place] Start: 11-14-1977 Diabetic foot examination Diabetes: Foot Exam [facility] Start: 11-14-1977 Glaucoma screening Diabetes: Retinopathy Screening [facility] [facility] Start: 11-14-1977 Preventive dental service Diabetes: Dental Exam [facility] Start: 11-14-1968 Hepatitis A Vaccines (1 of 2 - Risk 2-dose series) Hepatitis A Vaccines (1 of 2 - Risk 2-dose series) [facility] Start: 11-14-1968 MMR Vaccines (1 of 1 - Standard series) MMR Vaccines (1 of 1 - Standard series) [facility] Start: 1967 Hemoglobin A1c measurement Diabetes: Hemoglobin A1C [facility] Start: 1967 Hepatitis B Vaccines (1 of 3 - 3-dose series) Hepatitis B Vaccines (1 of 3 - 3-dose series) [facility] Start: 1967 HIV screening HIV Screening [facility] Start: 1967 Screening for malignant neoplasm of colon [facility] End: 06-10-2020 Anti-smooth muscle antibody Anti-smooth muscle antibody Lab Routine Tomorrow AM for 1 Occurrences starting 06/10/2020 until 06/10/2020 [facility] Work Phone: Comment on above: Tomorrow AM for 1 Occurrences starting 0 06/10/2020 until 06/10/2020 Anti-smooth muscle antibody Anti -smooth muscle antibody Lab Routine 06/10/2020 3:08 AM EST [facility] Work Phone: Basic Metabolic Pane l w/ Reflex to MG Basic Metabolic Panel w/ Reflex to MG Lab Routine Daily until discontinued starting 06/10/2020, 1 completed [facility] Work Phone: Comment on above: Daily until discontinued starting 2020, 1 completed End: 05-20-2023 Blood gases, venous measurement Blood gas, venous Lab STAT Once (Lab) for 1 Occurrences starting 05/20/2023 until 05/20/2023 [employer] Work Phone: Comment on above: Once (Lab) for 1 Occurrences starting until 05/20/2023 End: 06-10-2020 Blood glucose - POCT Blood glucose - POCT Point of Care Testing Routine One Time for 1 Occurrences starting 06/10/2020 until 06/10/2020 [employer] Work Phone: Comment on above: One Time for 1 Occurrences starting 05/30 until 06/10/2020 CBC auto differential CBC auto d ifferential Lab Routine Daily until discontinued starting 06/10/2020, 1 completed [facility] Work Phone: Comment on above: Daily until discontinued starting 2020, 1 completed CBC W Auto Different ial panel - Blood CBC with Auto Differential Lab Routine Daily until discontinued starting 09/29/2021, 1 completed [facility] Work Phone: Comment on above: Daily until discontinued starting 2021, 1 completed End: 06-10-2020 CERULOPLASMIN CERULOPLASMIN Lab Routine Tomorrow AM for 1 Occurrences starting 06/10/2020 until 06/10/2020 [employer] Work Phone: Comment on above: Tomorrow AM for 1 Occurrences starting 0 06/10/2020 until 06/10/2020 CERULOPLASMIN CERULOPLASMIN La b Routine 06/10/2020 3:08 AM EST [facility] Work Phone: Cologuard colon canc er screening Cologuard colon cancer screening Lab Routine Screening for colon cancer Ordered: 08/14/2024 [employer] Work Phone: Comment on above: Ordered: 08/14/2024 Complete PFT study Complete PFT study PFT Routine SOB (shortness of breath) Ordered: 08/01/2022 [facility] Comment on above: Ordered: 08/01/2022 Comprehensive metabo lic 2000 panel - Serum or Plasma Comprehensive Metabolic Panel Lab Routine Daily until discontinued starting 09/29/2021, 1 completed [facility] Work Phone: Comment on above: Daily until discontinued starting 2021, 1 completed End: 02-11-2024 CT Chest for screening WO contrast [employer] Work Phone: Comment on above: Once for 1 Occurrences starting 02/11/20 24 until 02/11/2024 End: 06-11-2024 CT Chest WO contrast [employer] Work Phone: Comment on above: Once for 1 Occurrences starting 06/12/19 25 until 06/11/2024 End: 10-10-2023 Drug screen panel, emergency Drug screen panel, emergency Lab Routine Alcohol withdrawal syndrome with complication (HCC) Encounter for monitoring naltrexone therapy Every 4 weeks for 6 Occurrences starting 10/09/2022 until 10/10/2023 [facility] Comment on above: Every 4 weeks for 6 Occurrences starting 10/09/2022 until 10/10/2023 End: 05-07-2024 Extra Tubes Extra Tubes Lab Routine Once (Lab) for 1 Occurrences starting 05/07/2024 until 05/07/2024 [employer] Work Phone: Comment on above: Once (Lab) for 1 Occurrences starting until 05/07/2024 Hemoglobin and Hematocrit Hemogl obin and Hematocrit Lab Routine 06/07/2021 2:21 AM EST [facility] Work Phone: End: 09-29-2021 Hemoglobin and Hematocrit Hemoglobin and Hematocrit Lab Timed Every 6 Hours (Lab) for 2 Days starting 09/27/2021 until 09/29/2021, 1 completed [facility] Work Phone: Comment on above: Every 6 Hours (Lab) for 2 Days starting 09/27/2021 until 09/29/2021, 1 completed Hemoglobin and Hematocrit Hemogl obin and Hematocrit Lab Timed 09/27/2021 1:42 AM EDT [facility] Work Phone: Hepatic function panel Hepatic f unction panel Lab Routine Daily until discontinued starting 06/10/2020, 1 completed [facility] Work Phone: Comment on above: Daily until discontinued starting 2020, 1 completed INR in Blood by Coag ulation assay [facility] End: 06-10-2020 Intermittent pulse oximetry Pulse Oximetry Spot Check Respiratory Care Routine One Time for 1 Occurrences starting 06/10/2020 until 06/10/2020 [employer] Work Phone: Comment on above: One Time for 1 Occurrences starting 05/30 until 06/10/2020 Magnesium measurement [facility] End: 06-10-2020 Nuclear Ab IF (S) [Titer] CHULA Lab Routine Tomorrow AM for 1 Occurrences starting 06/10/2020 until 06/10/2020 [employer] Work Phone: Comment on above: Tomorrow AM for 1 Occurrences starting 0 06/10/2020 until 06/10/2020 Nuclear Ab IF (S) [Titer] CHULA La b Routine 06/10/2020 3:08 AM EST [facility] Work Phone: OUTSIDE PROCEDURE SCAN OUTSIDE P ROCEDURE SCAN Procedures Ordered: 07/09/2022 [facility] Comment on above: Ordered: 07/09/2022 OUTSIDE PROCEDURE SCAN OUTSIDE P ROCEDURE SCAN Procedures Ordered: 09/29/2022 [facility] Comment on above: Ordered: 09/29/2022 OUTSIDE PROCEDURE SCAN OUTSIDE P ROCEDURE SCAN Procedures Ordered: 11/01/2022 [facility] Comment on above: Ordered: 11/01/2022 Oxygen therapy [Mini mum Data Set] Initiate Oxygen Therapy Protocol Respiratory Care Routine Daily until discontinued starting 06/09/2020 [facility] Work Phone: Comment on above: Daily until discontinued starting 2020 Oxygen therapy [Mini mum Data Set] Initiate Oxygen Therapy Protocol Respiratory Care Routine As Needed until discontinued starting 06/07/2021 [employer] Work Phone: Comment on above: As Needed until discontinued starting Oxygen therapy [Mini mum Data Set] Initiate Oxygen Therapy Protocol Respiratory Care Routine As Needed until discontinued starting 09/26/2021 [employer] Work Phone: Comment on above: As Needed until discontinued starting Oxygen therapy [Mini mum Data Set] Initiate Oxygen Therapy Protocol Respiratory Care Routine As Needed until discontinued starting 09/27/2021 [employer] Work Phone: Comment on above: As Needed until discontinued starting End: 05-07-2024 Pale Yellow Top Pale Yellow Top Lab Timed Once for 1 Occurrences starting 05/07/2024 until 05/07/2024 [facility] Comment on above: Once for 1 Occurrences starting 05/07/19 until 05/07/2024 Patient referral [facility] Work Phone: End: 05-07-2024 Red Top Red Top Lab Timed Once for 1 Occurrences starting 05/07/2024 until 05/07/2024 [facility] Comment on above: Once for 1 Occurrences starting 05/07/19 until 05/07/2024 End: 06-10-2020 Surgical Pathology Surgical Pathology Lab STAT Once for 1 Occurrences starting 06/10/2020 until 06/10/2020 [employer] Work Phone: Comment on above: Once for 1 Occurrences starting 06/11/19 until 06/10/2020 Surgical Pathology Surgical Path ology Lab STAT 06/10/2020 8:49 AM EST [facility] Work Phone: End: 05-08-2024 Transferrin.carbohydrate deficient/Transferrin.total in Serum or Plasma [employer] Work Phone: Comment on above: Once (Lab) for 1 Occurrences starting until 05/08/2024 End: 06-07-2021 VL Mesenteric Artery Duplex Scan VL Mesenteric Artery Duplex Scan Imaging Routine Once for 1 Occurrences starting 06/07/2021 until 06/07/2021 [facility] Work Phone: Comment on above: Once for 1 Occurrences starting 06/08/19 until 06/07/2021 End: 07-09-2022 XR Lumbar spine [address] [facility] Work Phone: Comment on above: Once for 1 Occurrences starting 07/10/19 until 07/09/2022 Immunizations Immunization Date Immunization Notes Care Provider Kar lala 09-25-2022 pneumococcal polysaccharide vaccine, 23 valent Lynda Rasheed MD Work Phone: [facility] 03-09-2021 Pfizer SARS-CoV-2 Vaccination Rosalina HOOKS Work Phone: [facility] 02-16-2021 influenza, injectabl e, quadrivalent, preservative free Joon Sheikh MD Work Phone: [facility] 02-16-2021 influenza virus vacc ine, unspecified formulation Rosalina HOOKS Work Phone: [facility] 07-22-2020 Pfizer SARS-CoV-2 Vaccination Rosalina HOOKS Work Phone: [facility] 06-30-2020 Pfizer SARS-CoV-2 Vaccination Rosalina HOOKS Work Phone: [facility] 01-12-2019 influenza, injectabl e, quadrivalent, contains preservative Lynda Rasheed [facility] 01-24-2017 Influenza, injectabl e, Madin Martina Canine Kidney, quadrivalent with preservative Lynda Kathya [place] 01-24-2017 pneumococcal polysaccharide vaccine, 23 valent Lynda Rasheed [facility] Payers Date Payer Category Payer Self-pay 2022 Medicaid HMO [id number] 2018 Medicaid [id number] 2016 Unknown [facility] xxxxxxxxxxxx 2016-Present [phone] [place] [id number] xxxxxxxxxxxx [id number] 2016 Unknown [id number] Unknown [id number] Unknown [id number] Unknown [id number] Unknown [id number] Unknown [id number] Social History Date Type Detail Facility Start: 10-10-1985 End: 06-16-2024 Tobacco smoking status NHIS Current every day smoker [place] Start: 01-12-2019 End: 08-04-2024 Cigarettes smoked current (pack per day) - Reported [facility] Start: 01-12-2019 End: 08-04-2024 Alcohol intake Current drinker of alcohol (finding) [place] Start: 12-18-2016 Alcohol Comment at least 2 tallboys daily [place] Start: 1965 Sex Assigned At Not on file [place] Start: 08-31-2019 Alcohol Comment 6-24oz beers daily. Last drink 1 hour ago. [place] Exposure to SARS-CoV -2 (event) Unable to assess [place] Start: 10-02-2019 End: 06-16-2024 Tobacco use and exposure Never used [place] Start: 10-01-2019 Alcohol Comment 24 oz 12% beer [place] Start: 09-17-2021 End: 11-01-2022 Exposure to SARS-CoV-2 (event) Not sure [place] Start: 10-10-1985 History of tobacco use Cigarette Smoker [employer] Phone: Start: 06-06-2021 History SDOH Alcohol Comment 25oz cans beer 6-8 per day [facility] Work Phone: Start: 09-27-2021 History SDOH Alcohol Comment 25oz cans beer 9-10 per day [facility] Work Phone: Start: 1965 Sex Assigned At Male [facility] Start: 06-02-2022 End: 06-12-2022 Exposure to SARS-CoV-2 (event) Yes [facility] Start: 07-22-2022 History SDOH Alcohol Frequency 5 [facility] Start: 07-22-2022 History SDOH IPV Fear 2 [facility] Start: 07-23-2022 Alcohol Comment beer 8 cans / day [facility] Start: 07-22-2022 End: 08-04-2024 Humiliation, Afraid, Rape, and Kick questionnaire [HARK] [facility] Within the last year , have you been afraid of your partner or ex-partner? No [facility] Are you now , , , , never or living with a partner? [facility] How often to you hav e a drink containing alcohol? 4 or more times a week [facility] How many standard dr inks containing alcohol do you have on a typical day? 7 to 9 [facility] How often do you hav e 6 or more drinks on 1 occasion? Daily or almost daily [facility] How hard is it for y ou to pay for the very basics like food, housing, medical care, and heating Not very hard [facility] Do you feel stress - tense, restless, nervous, or anxious, or unable to sleep at night because your mind is troubled all the time - these days [OSQ] Very much [facility] (I/We) worried wheth er (my/our) food would run out before (I/we) got money to buy more. Never true [facility] In the past 12 month s, has lack of transportation kept you from medical appointments or from getting medications? No [facility] Start: 06-12-2022 Gender identity Identifies as male gender (finding) [facility] Start: 06-12-2022 Sexual orientation Heterosexual (finding) [facility] Start: 09-25-2022 End: 08-10-2024 Alcohol intake Ex-drinker (finding) [facility] Start: 02-08-2023 Alcohol Comment 6-9 tall boy beers/day [facility] Start: 02-17-2023 Alcohol Comment Detox home for a week 0 drinks 02/17/23 [facility] How many standard dr inks containing alcohol do you have on a typical day? 5 or 6 [facility] Do you feel stress - tense, restless, nervous, or anxious, or unable to sleep at night because your mind is troubled all the time - these days [OSQ] To some extent [facility] How many standard dr inks containing alcohol do you have on a typical day? [address] [facility] Start: 11-28-2023 Alcohol Comment Detox home for a week 0 drinks 02/17/23, 6 tall boys/ daily 11/28/23 [facility] How hard is it for y ou to pay for the very basics like food, housing, medical care, and heating Somewhat hard [facility] Do you feel stress - tense, restless, nervous, or anxious, or unable to sleep at night because your mind is troubled all the time - these days [OSQ] Not at all [facility] Start: 10-30-2021 Sex Male (finding) [facility] How often to you hav e a drink containing alcohol? Never [facility] History of tobacco use Passive smoker [facility] Start: 05-09-2024 Tobacco Comment Started at 19, 2 PPD, 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 05/09/2024 [facility] History of tobacco use Cigar Smoker [facility] How often to you hav e a drink containing alcohol? 2-[address] [facility] How many standard dr inks containing alcohol do you have on a typical day? 1 or 2 [facility] Start: 07-17-2017 Alcohol Alcohol [facility] Start: 07-17-2017 Drugs Drugs [facility] Start: 03-07-2017 Lives Lives [facility] Start: 07-20-2017 Tobacco Use Tobacco Use [facility] Goals Date Patient Goal Desired Activity /State Personal health goal Comment on above: Formatting of this n ote might be different from the original. Go to school, eat healthier, support my family better and remain sober. Functional Status Date Assessment Result Facility 09-20-2024 Functional status Activity Ability Indepe ndent [facility] Work Phone: 09-19-2024 Functional status Ambulates;Bathroom Priv ilege [facility] Work Phone: Mental Status Date Assessment Result Facility 09-20-2024 Cognitive function Voice/Name [facility] Work Phone: Clinical Notes 06-09-2021 to 09-20-2024 Note Date & Type Note Facility 09-20-2024 Discharge summary [facility] 09-20-2024 Note [facility] Medical Records Department [address] [place] [address] Discharge Summary 09/20/24 1017 MR#: [id number] Acct: [id number] Name: MARIA DE JESUS HOGAN Rep #: [id number] : 1965 58 From: Bryan Cox DO PCP: OUT OF TOWN DOCTOR Status:ADM IN Location: [facility] [id number] Providers Date of Admission: 09/17/24 Primary Care [...] Attending Provider: Bryan Cox Primary Care Provider: [facility] ,Out of Consulting Providers: Joon Vinson Discharge Orders/Prescriptions Prescriptions: New multivitamin [Daily Multi-Vitamin] Tablet 1 tab PO DAILY Qty: 30 0RF Rx Instructions: Flbn-loh-ojtxncu. No prescription required. Continued cyclobenzaprine 10 mg tablet 10 mg PO QHS gabapentin 300 mg capsule 600 mg PO TID melatonin 5 mg tablet 5 mg PO QHS omeprazole 20 mg tablet,delayed release (DR/EC) 20 mg PO DAILY Referrals / Follow Up: [facility] ,Out of [Primary Care Provider] - Disposition Disposition (needs filled in before D/C Order can be placed): Home, Self Care Charges/Coding Visit Charges Inpatient E M: 51321 Disch Hosp 09/20/24 1021 Cosigner Signature (if applicable): CC: Dr. Bryan Cox DO Signed [facility] 09-19-2024 Progress note Note Date/Time September 19, 2024 10:52am [facility] Medical Records Department [address] [place] [address] Progress Note - Hospitalist 09/19/24 1050 MR#: [id number] Acct: [id number] Name: MARIA DE JESUS HOGAN Rep #:[id number] : 1965 58 From: Bryan Cox DO PCP: OUT OF TOWN DOCTOR Status:ADM IN Location: [facility] WA202-5 Reason for Visit Reason for Visit: Diagnoses [...] more day. Charges/Coding Visit Charges Inpatient E&M: 28036 Subs Hosp L1 09/19/24 1054 <Electronically signed by Bryan Cox DO> Cosigner Signature (if applicable): CC: ~ Signed [facility] Work Phone: 1(215) 222-515506-21-2025 Progress note [facility] Medical Records Department [address] [place] [address] Progress Note - Hospitalist 09/19/24 1050 MR#: [id number] Acct: [id number] Name: MARIA DE JESUS HOGAN Rep #:[id number] : 1965 58 From: Bryan Cox DO PCP: OUT OF TOWN DOCTOR Status:ADM IN Location: [facility] [id number] Reason for Visit Reason for Visit: Diagnoses [...] more day. Charges/Coding Visit Charges Inpatient E&M: 05381 Subs Hosp L1 09/19/24 1052 Cosigner Signature (if applicable): CC: ~ Signed [facility]06-20-2025 Progress note Author Bryan Cox [facility] Note Date/Time September 18, 2024 1:10 pm [facility] Medical Records Department [address] [place] [address] Progress Note - Hospitalist 09/18/24 1307 MR#: [id number] Acct: [id number] Name: MARIA DE JESUS HOGAN Rep #:[id number] : 1965 58 From: Bryan Cox DO PCP: OUT OF TOWN DOCTOR Status:ADM IN Location: [facility] TB680-2 Reason for Visit Reason for Visit: Diagnoses [...] % (Auto) 53.0, Lymph % (Auto) 31.7, Coos% (Auto) 11.8 H, Eos % (Auto) 2.5, [...] % (Auto) 51.0, Lymph % (Auto) 28.3, Coos% (Auto) 14.1 H, Eos % (Auto) 5.2 [...] more days. Charges/Coding Visit Charges Inpatient E&M: 71671 Subs Hosp L1 09/18/24 1310 <Electronically signed by Bryan Cox DO> Cosigner Signature (if applicable): CC: ~ Signed [facility] Work Phone: 1(347) 411-442206-20-2025 Progress note [facility] Medical Records Department [address] [place] [address] Progress Note - Hospitalist 09/18/24 1307 MR#: [id number] Acct: [id number] Name: MARIA DE JESUS HOGAN Rep #:[id number] : 1965 58 From: Bryan Cox DO PCP: OUT OF TOWN DOCTOR Status:ADM IN Location: [facility] [id number] Reason for Visit Reason for Visit: Diagnoses Obesity, class 1 (09/17/24) Alcohol abuse, uncomplicated (09/17/24) Alcohol use, unspecified with intoxication, uncomplicated (09/17/24) Nicotine dependence, unspecified, uncomplicated (09/17/24) Chronic obstructive pulmonary disease, unspecified (09/17/24) Alcoholic hepatitis without ascites (09/17/24) Subjective Subjective Feeling well. Has some tremors in his upper extremities. States that he normally detoxes quickly today as a follow-up appointment with [facility] with pedro Hoyt. Objective Data Objective Data [...] % (Auto) 53.0, Lymph % (Auto) 31.7, Coos% (Auto) 11.8 H, Eos % (Auto) 2.5, [...] % (Auto) 51.0, Lymph % (Auto) 28.3, Coos% (Auto) 14.1 H, Eos % (Auto) 5.2 [...] more days. Charges/Coding Visit Charges Inpatient E&M: 06550 Subs Hosp L1 09/18/24 1310 Cosigner Signature (if applicable): CC: ~ Signed [facility]06-20-2025 History and physical note Author Joon Quintero [facility] Note Date/Time September 18, 2024 7:07 am [facility] Medical Records Department [address] [place] [address] H&P Exam - Hospitalist 09/17/241944 MR#: [id number] Acct: [id number] Name: MARIA DE JESUS HOGAN Rep #:[id number] : 1965 58 From: Joon Morse DO PCP: OUT OF TOWN DOCTOR Status:ADM IN Location: [facility] IV368-0 HPI - General General Date of Admission: [...] and mild alcoholic hepatitis who presents to [facility] once again requesting alcohol detoxification. Mr. Hogan [...] is expected to extend beyond 2 midnights. [facility] Medical History EtOH dependence Home Medications ?Medication [...] % (Auto) 53.0, Lymph % (Auto) 31.7, Coos% (Auto) 11.8 H, Eos % (Auto) 2.5, [...] 75 minutes. Charges/Coding Visit Charges Inpatient E&M: 54096 Init Hosp L3 09/18/24 0707 <Electronically signed by Joon Vinson DO> Cosigner Signature (if applicable): CC: Dr. Joon Vinson, DO~ Signed [facility] Work Phone: 1(407) 835-582506-20-2025 History and physical note [facility] Medical Records Department [address] [place] [address] H&P Exam - Hospitalist 09/17/241944 MR#: [id number] Acct: [id number] Name: MARIA DE JESUS HOGAN Rep #:[id number] : 1965 58 From: Joon Morse DO PCP: OUT OF TOWN DOCTOR Status:ADM IN Location: [facility] [id number] HPI - General General Date of Admission: [...] and mild alcoholic hepatitis who presents to [facility] once again requesting alcohol detoxification. Mr. Hogan [...] is expected to extend beyond 2 midnights. [facility] Medical History EtOH dependence Home Medications ?Medication [...] % (Auto) 53.0, Lymph % (Auto) 31.7, Coos% (Auto) 11.8 H, Eos % (Auto) 2.5, [...] 75 minutes. Charges/Coding Visit Charges Inpatient E&M: 17263 Init Hosp L3 09/18/24 0707 Cosigner Signature (if applicable): CC: Dr. Joon Vinson, DO~ Signed [facility]06-20-2025 Discharge summary Author Doe Oh [facility] Note Date/Time September 17, 2024 11:2 0pm [facility] Medical Records Department [address] [place] [address] Emergency Department Summary 09/17/24 MR#: [id number] Acct: [id number] Name: MARIA DE JESUS HOGAN Rep #:[id number] : 1965 58 From: Doe Call PCP: OUT OF TOWN DOCTOR Status:ADM IN Location: [facility] QK687-2 [facility] <NEVA Ayala - Last Filed: 09/17/24 20:07> History of Present Illness Chief Complaint: Substance Abuse Narrative Narrative: 58-year-old male has a history of alcoholism. He drinks 6-9 tall boy beers a day and states his last drink was about 20 minutes ago. He is here requesting alcohol detox. He detoxed at [facility] several years ago and states he detoxed [...] breath, abdominal, vomiting, hematemesis, melena or hematochezia. [facility] <NEVA Ayala - Last Filed: 09/17/24 20:07> [facility] Medical History (Updated 09/17/24 @ 21:09 by [...] % (Auto) 53.0 Lymph % (Auto) 31.7 Coos % (Auto) 11.8 H Eos % (Auto) [...] Oh, DO - Last Filed: 09/17/24 23:20> [facility] Lab Data Labs: Laboratory Results - last 24 hr 09/17/24 18:49 WBC 7.1 RBC 5.11 Hgb 17.1 H Hct 49.4 MCV 96.7 H MCH 33.5 H MCHC 34.6 RDW Std Deviation 48.2 H RDW Coeff of [place] 13.4 Plt Count 281 MPV 8.2 Immature Gran % (Auto) 0.300 Neut % (Auto) 53.0 Lymph % (Auto) 31.7 Coos % (Auto) 11.8 H Eos % (Auto) [...] Alcoholic hepatitis Disposition Disposition: Acute Care Hospital [facility] Discharge Date/Time: 09/17/24 20:36 What to do if you have Problems For any increased pain, shortness of breath, bleeding, nausea or vomiting, chestpain, or any unexpected problems, contact your Primary Care Provider. Call [facility] ([phone]) or report to the closest Emergency Room. Call 911 if necessary. 09/17/242319 <Electronically signed by Doe Call> Cosigner Signature (if applicable): 09/17/242006 <Electronically signed by Anat HOOKS> CC: ~ Signed [facility] Work Phone: 1([phone] 561-639906-19-2025 Discharge summary [facility] Medical Records Department [address] [place] [address] Emergency Department Summary 09/17/24 MR#: [id number] Acct: [id number] Name: MARIA DE JESUS HOGAN Rep #:[id number] : 1965 58 From: Doe Call PCP: OUT OF TOWN DOCTOR Status:ADM IN Location: FL3 [place]411-8 HPI History of Present Illness Chief Complaint: Substance Abuse Narrative Narrative: 58-year-old male has a history of alcoholism. He drinks 6-9 tall boy beers a day and states his last drink was about 20 minutes ago. He is here requesting alcohol detox. He detoxed at [facility] severalyears ago and states he detoxed somewhere [...] breath, abdominal, vomiting, hematemesis, melena or hematochezia. [facility] Medical History (Updated 09/17/24 @ 21:09 by [...] % (Auto) 53.0 Lymph % (Auto) 31.7 Coos % (Auto) 11.8 H Eos % (Auto) [...] Cannabinoids Screen NEGATIVE Ethyl Alcohol 368.0 H* [facility] Lab Data Labs: Laboratory Results - last 24 hr 09/17/24 18:49 WBC 7.1 RBC 5.11 Hgb 17.1 H Hct 49.4 MCV 96.7 H MCH 33.5 H MCHC 34.6 RDW Std Deviation 48.2 H RDW Coeff of [place] 13.4 Plt Count 281 MPV 8.2 Immature Gran % (Auto) 0.300 Neut % (Auto) 53.0 Lymph % (Auto) 31.7 Coos % (Auto) 11.8 H Eos % (Auto) [...] Alcoholic hepatitis Disposition Disposition: Acute Care Hospital [facility] Discharge Date/Time: 09/17/24 20:36 What to do if you have Problems For any increased pain, shortness of breath, bleeding, nausea or vomiting, chestpain, or any unexpected problems, contact your Primary Care Provider. Call [facility] ([phone]) or report tothe closest Emergency Room. Call 911 if necessary. 09/17/242319 Cosigner Signature (if applicable): 09/17/242006 CC: ~ Signed [facility]06-19-2025 Evaluation note* Diagnosis Onset Date Resolution Status [...] obstructive pulmonary disease) suspected September 17 8:05pm [facility] Work Phone: 1(825) 588-195005-27-2025 NoteMyChart message sent to inform the patient that he was referred for smoking cessation counseling, gave contact information, will provide follow up.[facility]05-19-2025 Telephone encounter Note* Telephone Encounter - Lisa Willis MA - 08/17/2024 7:49 AM EDT Therapy [facility]28[facility]-0637 Miscellaneous Notes* Telephone Encounter - Lisa Willis [...] up the medication: Yes documented in this encounterSKeenan Private HospitalTjesvy22-67-7357 Telephone encounter Note* Telephone Encounter - Paige [...] prior to picking up the medication: Yes [facility]Vstcry66-49-6941 History of Present illness Narrative* Lynda Rasheed MD - 08/14/2024 9:40 AM EDT Images from the original note were not included. [facility] [address] [facility] [address] [facility] [address] Dept: [phone] Dept Loc: [phone] Reason for Visit: Herpes Zoster Assessment and [...] CYST REMOVAL face EGD (HISTORICAL) 07/23/2022 Dr. Estrella-[facility] SMALL INTESTINE SURGERY UPPER GASTROINTESTINAL ENDOSCOPY 09/27/2021 normal WISDOM TOOTH EXTRACTION [6] Family History Problem Relation Name Age of Onset Depression Sister Maria De Jesus Hogan Other ([id number]) Sister Maria De Jesus Hogan agoraphobia Arthritis Sister Maria De Jesus Hogan Cancer Mother Maria De Jesus Hogan colon rectal cancer; dx after age 50 Other ([id number]) Mother Maria De Jesus Hogan alcoholism Alcohol abuse Mother Maria De Jesus Hogan Stroke Mother Maria De Jesus Hogan Other ([id number]) Father Maria De Jesus Hogan h/o rheumatic fever, cardiac arrest due to bee sting Hypertension Father Maria De Jesus Hogan documented in this [facility]05-15-2025 History of Present illness Narrative* PABLO Paul - 08/13/2024 1:30 PM EDT Missed Session Unexcused Pt did not call or show for Scheduled Assessment on this date. documented in this [facility]05-12-2025 Hospital Discharge instructions* Discharge Instructions* Catalino Waddell MD - 08/10/2024 4:49 PM EDT Pain medication sent to pharmacy. Try to stretch this out as long as you can as this is already a repeat prescription. * Attachments The following attachments cannot be sent through Care Everywhere. * Shingles Discharge Instructions (Irish) documented in this [facility]05-12-2025 Emergency department Note* Catalino Waddell MD - [...] CYST REMOVAL face EGD (HISTORICAL) 07/23/2022 Dr. Estrella-[facility] SMALL INTESTINE SURGERY UPPER GASTROINTESTINAL ENDOSCOPY [...] Depression Sister Maria De Jesus Hogan Other ([id number]) Sister Maria De Jesus Hogan agoraphobia Arthritis Sister Maria De Jesus Hogan Cancer Mother Maria De Jesus Hogan colon rectal cancer; dx after age 50 Other ([id number]) Mother Maria De Jesus Hogan alcoholism Alcohol abuse Mother Maria De Jesus Hogan Stroke Mother Maria De Jesus Hogan Other ([id number]) Father Maria De Jesus Hogan h/o rheumatic [...] 0 min Stress: Stress Concern Present (08/04/2024) [employer] - Occupational Stress Questionnaire Feeling of Stress : To some extent Social Connections: Moderately Isolated (08/04/2024) Social Connection and Isolation Panel [NHANES] Frequency of Communication with Friends and Family: Twice a week Frequency of Social Gatherings with Friends and Family: Twice a week Attends Hinduism Services: Never Active Member of Clubs or [...] Physician [facility] RAD[facility]OLOGY (Per Emergency Physician): Interpretation per the [...] PM PATIENT REFERRED TO: Lynda Rasheed MD [address] [place] [address] [address] [facility] [address] In 1 week DISCHARGE MEDICATIONS: New [...] to area on abdomen. documented in this [facility]05-12-2025 Emergency department Triage note* Ashleigh Cunningham RN - 08/10/2024 4:18 PM EDT Recently diagnosed with shingles and is here for increasing pain to area on abdomen. [facility] HospitalXtrjbh92-75-1839 Physician Emergency department Note* Catalino Waddell MD [...] CYST REMOVAL face EGD (HISTORICAL) 07/23/2022 Dr. Estrella-[facility] SMALL INTESTINE SURGERY UPPER GASTROINTESTINAL ENDOSCOPY [...] Depression Sister Maria De Jesus Hogan Other ([id number]) Sister Maria De Jesus Hogan agoraphobia Arthritis Sister Maria De Jesus Hogan Cancer Mother Maria De Jesus Hogan colon rectal cancer; dx after age 50 Other ([id number]) Mother Maria De Jesus Hogan alcoholism Alcohol abuse Mother Maria De Jesus Hogan Stroke Mother Maria De Jesus Hogan Other ([id number]) Father Maria De Jesus Hogan h/o rheumatic [...] 0 min Stress: Stress Concern Present (08/04/2024) [employer] Occupational Health - Occupational Stress Questionnaire Feeling of Stress : To some extent Social Connections: Moderately Isolated (08/04/2024) Social Connection and Isolation Panel [NHANES] Frequency of Communication with Friends and Family: Twice a week Frequency of Social Gatherings with Friends and Family: Twice a week Attends Hinduism Services: Never Active Member of Clubs or [...] PM PATIENT REFERRED TO: Lynda Rasheed MD [address] [place] [address] [address] [facility] [address] In 1 week DISCHARGE MEDICATIONS: New Prescriptions [...] Medicine Provider Catalino Waddell MD 08/10/[address] [facility] HospitalEmghdp70-08-7387 Telephone encounter Note* Telephone Encounter - Sona [...] relayed to the patient from encounter: Yes [facility] HospitalZbxrdx86-84-7110 Miscellaneous Notes* Telephone Encounter - Sona Claudia [...] caller: Maria De Jesus Contact phone number: [phone] Relationship to Patient: patient Provider: Dr. Rasheed [...] return their call: Yes documented in this encounterSKeenan Private HospitalPbrcez53-07-0872 Telephone encounter Note* Telephone Encounter - Kristina [...] just give him any medication for this. [facility] HospitalMsakyv47-69-4776 Telephone encounter Note* Telephone Encounter - Lynda [...] just give him any medication for this. [facility] HospitalJpfdao51-93-8805 Telephone encounter Note* Telephone Encounter - Tea [...] could you prescribe for it? Please advise. [facility] HospitalJldpoc52-53-5447 Telephone encounter Note* Telephone Encounter - Cosme Austin - 08/07/2024 3:17 PM EDT Name of caller: Maria De Jesus Contact phone number: [phone] Relationship to Patient: patient Provider: Dr. Rasheed Practice: [facility] Chief Complaint/Reason for Call: Patient called in stating that someone removed some of his medications off his chart and he would like to now why. Please follow up to advise Best time of day caller can be reached: Any Patient advised that office/PCP has 24-48 business hours to return their call: Yes [facility] HospitalAdkcel25-42-1181 Nurse Note* Neelam Cody RN - 08/06/2024 2:51 PM EDT Patient is A&O x4, cooperative, social. He is up steady, eating well, compliant with medications. He continues Valtrex for shingles. CIWA monitored. Order to discharge home received. Instructions, medications and appointments reviewed and he voiced understanding. He denies SI/HI/AVH. Belongingsreturned. Meds to beds given to patient. Escorted to [address] [place] [address], picked up by his . [facility]Qssvfa92-72-5672 Nurse Note* Neelam Cody RN - 08/06/2024 2:51 PM EDT Patient is A&O x4, cooperative, social. He is up steady, eating well, compliant with medications. He continues Valtrex for shingles. CIWA monitored. Order to discharge home received. Instructions, medications and appointments reviewed and he voiced understanding. He denies SI/HI/AVH. Belongingsreturned. Meds to beds given to patient. Escorted to [address] [place] [address], picked up by his . * Evelyn [...] needs or concerns voiced. Safety maintained. * Roam White LPN - 08/05/2024 4:11 PM EDT [...] of cigarettes. Denies any other drug use, [facility] consulted for shingles management , sores and [...] monitor pt for safety. documented in this [facility]05-08-2025 Hospital course Narrative* Robert Coats MD - 08/06/2024 12:26 PM EDT Images from the original note were not included. ADDICTION MEDICINE DETOX UNIT DISCHARGE SUMMARY __ Patient MRN Maria De Jesus Hogan [id number] 1965 Admit Date Discharge Date 08/03/2024 08/06/2024 [...] provider note dated 08/03/24: Maria De Jesus Hogna is a 58 y.o. year old male with a PMH of alcohol abuse, alcohol withdrawal, arthritis, cerebral artery occlusion with cerebral infarction, cerebrovascular disease, GERD, HTN, insomnia that was admitted for detox from alcohol. Patient has a long history of alcohol use disorder and has been admitted to the [facility] multiple times in the past for similar presentation, with last known admission to the detox unit on 06/02/2024 the patient left [facility] on 06/04/2024. During evaluation today, patient was [...] 364 ms QTC Interval 461 ms P [place] 35 degrees QRS [place] 80 degrees T Wave [place] 47 degrees [place] Interval 154 ms Drug screen panel, emergency [...] Your Medications These medications were sent to [facility] [address] [place], [place] [id number] Hours: Saturday to Saturday 10 am to 6 pm gabapentin 400 MG capsule ibuprofen 800 MG tablet oxyCODONE 5 MG immediate release tablet valACYclovir 1 g tablet Follow Up H Addiction IOP [address] [place] [address] Go on 08/13/2024 At 1:30 PM for intake assessment for intensive outpatient program and addiction medicine follow-up. Future Appointments Date Time Provider Department Center 08/13/2024 1:30 PM Ammon Abdul [facility] ADD IOP None 10/21/2024 3:20 PM Lynda Rasheed MD [facility] The patient was also instructed [...] process. Jonatan Mckeon MD documented in this [facility]05-08-2025 [facility] 08-06-2024 Note* Care Coordination - JEREMY Solis - 08/06/2024 12:25 PM EDT Social work consult placed for patient. None of the 5 areas of S NAHOMY noted at current time. Social work consult cleared [facility] HospitalZkvels70-43-5831 Note* Care Coordination - JEREMY Solis - 08/06/2024 12:25 PM EDT Social work consult placed for patient. None of the 5 areas of S NAHOMY noted at current time. Social work consult cleared [facility] HospitalJelidc24-72-0777 Miscellaneous Notes* Care Coordination - JEREMY Solis [...] as scheduled with [facility]OP at the [facility] on 08/13 at 130. Patient [...] Camarena - 08/05/2024 12:12 PM EDT Department: [employer] ACTIVITIES THERAPY Group Topic: Recreation Therapy Group [...] Jesus Hogan Date of : 1965 MR: [id number] Appearance: Good eye contact Affect: Appropriate Behavior: [...] 08/04/2024 1:06 PM EDT Patient scheduled for [facility] intake assessment on 08/13/2024 at 1:30 PM. All information included in patient's discharge paperwork. * Care Coordination - JEREMY Solis - 08/04/2024 8:55 AM EDT Patient reports plans to engage in [facility]. Declining residential as an option at current time. TABLE FILLER will assist with scheduling patient intake appointment. [...] as an adult. Patient denies any history [place] or status. Family Constellation/Childhood History: Patient reports that he is currently to his living in [facility]. Patient reports that he has 3 biological children and 4 stepchildren. Patient reports that his father in his 11 years old. Patient did not report his mother is stillalive currently. Patient was born and raised in [place], [place] by his mother and father. 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 Patient denies SSI/SSD. Cultural/Spirituality/Leisure: Patient denies any cultural needs or concerns at the current time. Patient denies identify any hinduism preference. It is unknown if patient is [...] Plan: Current plan is for patient stabilization. TABLE FILLER patient will continue work together to establish appropriate aftercare plan based on patient sobriety, needs, and resource available to local community. Patient encouraged to engage in all activities that are offered to them while they are on the unit.Patient report needing additional current time. Patient encouraged to seek out TABLE FILLER unit staff should they identify any additional [...] EDT Care plan reviewed documented in this [facility]05-08-2025 Note* Care Coordination - JEREMY Verdugo-S - 08/06/2024 11:29 AM EDT Patient being discharged this date. Social work met with patient at bedside. Patient stated he feels he is ready to leave and denies SI/HI/AVH. Patient will be returning to his home with transportation provided by his . Patient is agreeable to follow-up as scheduled with CDIOP at the [facility] office on 08/13 at 130. Patient denied any other social work needs at this time. Patient acknowledgedshe may contact the unit should needs arise after discharge. [employer] Phone: 1(380) 186-710505-08-2025 Note* Care Coordination - ANAYA Verdugo - 08/06/2024 11:29 AM EDT Patient being discharged this date. Social work met with patient at bedside. Patient stated he feels he is ready to leave and denies SI/HI/AVH. Patient will be returning to his home with transportation provided by his . Patient is agreeable to follow-up as scheduled with CDIOP at the [facility] office on 08/13 at 130. Patient denied any other social work needs at this time. Patient acknowledgedshe may contact the unit should needs arise after discharge. [employer] Phone: [phone]) 482-210905-08-2025 Plan of care note* Care Plan - Neelam Cody RN - 08/06/2024 9:58 AM EDT Problem: Drug Abuse/Detox Goal: Will have no detox symptoms and will verbalize plan for changing drug- related behavior Outcome: Progressing Problem: Potential for Substance Withdrawal Goal: Verbalizes signs/symptoms of withdrawal Outcome: Progressing Goal: Reports signs/symptoms of withdrawal Outcome: Progressing Goal: Free of withdrawal symptoms Outcome: Progressing [facility] HospitalAjgorr32-18-4955 History of Present illness Narrative* Rashad Gastelum, - 08/06/2024 9:09 AM EDT Hospitalist Progress Note Subjective: Admit Date: 08/03/2024 PCP: Lynda Rasheed MD Room#: E4404/E4404 A Chief Complaint Patient presents with Rash On abdomen Back Pain Middle of back. No known injury. 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 No known injury. 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 Patient also has a history of leaving [facility] prior to his detox being completed. Patient states that at his last admission in May 2024 for detox, he was supposed to go to a rehabilitation facility in [place] but his uncle was going to pay [...] to review: Daily CMP, daily vitals, CDT. Case Filler to coordinate care with: IMS. Will follow. [...] at a later date. documented in this [facility]05-08-2025 Nurse Note* Evelyn Abad RN - 08/06/2024 6:36 AM EDT 2 attempts done for blood draw. Unable to retrieve blood. 2nd nurse to attempt. [facility] HospitalEgnraj43-62-4211 Nurse Note* Evelyn Abad RN - 08/06/2024 12:28 AM EDT Patient is up and steady, seen in group room. Pt is cooperative and med compliant. Pt denies SI/HI/AVH. Pt encouraged to notify staff for any questions and concerns. [facility] HospitalNmblox90-14-8471 Nurse Note* Roma White LPN - 08/05/2024 6:28 PM EDT One episode of emesis noted shortly after administration of PRN oxycodone. Patient reports this is a normal occurrence for him-instructed to alert staff of any further potential episodes of emesis. PRN Zofran given at 1735-per patient, medication was effective. No further needs or concerns voiced. Safety maintained. [facility] Qhlgby69-42-8880 Nurse Note* Roma White LPN - 08/05/2024 [...] further needs or concerns voiced. Safety maintained. [facility] Wddzwm85-80-9462 Group counseling note* Group Note - Aurora Camarena - 08/05/2024 12:12 PM EDT Department: [facility] ACTIVITIES THERAPY Group Topic: Recreation Therapy Group [...] Jesus Hogan Date of : 1965 MR: [id number] Appearance: Good eye contact Affect: Appropriate Behavior: [...] with complication (HCC) Shingles (herpes zoster) polyneuropathy [facility]360piBbuzde80-63-6832 Nurse Note* Roma White LPN - 08/05/2024 [...] concerns. Plan of care ongoing. Safety maintained. [facility] Sevjum56-88-7189 Plan of care note* Care Plan - Roma White LPN - 08/05/2024 9:21 AM EDT Problem: Drug Abuse/Detox Goal: Will have no detox symptoms and will verbalize plan for changing drug- related behavior Outcome: Progressing Problem: Potential for Substance Withdrawal Goal: Verbalizes signs/symptoms of withdrawal Outcome: Progressing Goal: Reports signs/symptoms of withdrawal Outcome: Progressing Goal: Free of withdrawal symptoms Outcome: Progressing [facility] HospitalFafter32-26-2186 Nurse Note* Evelyn Abad RN - 08/04/2024 10:48 PM EDT Patient is up and steady, seen in group room socializing. Pt is cooperative and med compliant. Pt has shingles on right flank and back. Pt denies SI/HI/AVH. Pt encouraged to notify staff for any questions and concerns. [facility] HospitalDtpisv46-38-2878 Nurse Note* Lauren Irby RN - 08/04/2024 6:12 PM EDT Administered PRN Oxycodone for shingles pain. Will monitor effectiveness. [facility] HospitalRtckpx22-55-1539 NotePatient sleeping comfortably, will attempt smoking cessation counseling at a later date.[facility]05-06-2025 Note* Care Coordination - JEREMY Solis - 08/04/2024 1:06 PM EDT Patient scheduled for [facility] intake assessment on 08/13/2024 at 1:30 PM. All information included in patient's discharge paperwork. [facility] HospitalVdubxx89-25-2465 Note* Care Coordination - JEREMY Solis - 08/04/2024 1:06 PM EDT Patient scheduled for [facility] intake assessment on 08/13/2024 at 1:30 PM. All information included in patient's discharge paperwork. [facility] HospitalHseisa24-09-9465 Nurse Note* Lauren Irby RN - 08/04/2024 [...] concerns. Will monitor for safety this shift. [facility] HospitalYqbehn10-49-2271 History and physical note* Robert Coats MD [...] No known injury. 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 year old male with a PMH of alcohol abuse, alcohol withdrawal, arthritis, cerebral artery occlusion with cerebral infarction, cerebrovascular disease, GERD, HTN, insomnia that was admitted for detox from alcohol. Patient has a long history of alcohol use disorder and has been admitted to the [facility] detox multiple times in the past for similar presentation, with last known admission to the detox unit on 06/02/2024 the patient left [facility] on 06/04/2024. Maria De Jesus Hogan states that prior to presentation, he last admitted to [facility] detox in May. At the time of that admission, patient was looking to go to a rehab facility in [place] andat his uncle was supposed to be [...] states that he wants to go to [facility] on discharge, as he felt that [...] Brief Substance Use Narrative - Copied from TABLE FILLER note from 08/04/24. Patient reports that he [...] CYST REMOVAL face EGD (HISTORICAL) 07/23/2022 Dr. Estrella-[facility] SMALL INTESTINE SURGERY UPPER GASTROINTESTINAL ENDOSCOPY 09/27/2021 normal WISDOM TOOTH EXTRACTION Family History Family History Problem Relation Name Age of Onset Depression Sister Maria De Jesus Hogan Other ([id number]) Sister Maria De Jesus Hogan agoraphobia Arthritis Sister Maria De Jesus Hogan Cancer Mother Maria De Jesus Hogan colon rectal cancer; dx after age 50 Other ([id number]) Mother Maria De Jesus Hogan alcoholism Alcohol abuse Mother Maria De Jesus Hogan Stroke Mother Maria De Jesus Hogan Other ([id number]) Father Maria De Jesus Hogan h/o rheumatic fever, cardiac arrest due to bee sting Hypertension Father Maria De Jesus Hogan Social D[employer] of [employer] Tobacco Use: High Risk (08/03/2024) Patient History [...] 0 min Stress: Stress Concern Present (08/04/2024) [employer] Occupational Health - Occupational Stress Questionnaire Feeling of Stress : To some extent Social Connections: Moderately Isolated (08/04/2024) Social Connection and Isolation Panel [NHANES] Frequency of Communication with Friends and Family: Twice a week Frequency of Social Gatherings with Friends and Family: Twice a week Attends Hinduism Services: Never Active Member of Clubs or [...] Year: No Utilities: Not At Risk (08/04/2024) [facility] Utilities Threatened with loss of utilities: No Recent Concern: Utilities - At Risk (05/08/2024) [facility] Utilities Threatened with loss of utilities: Yes [...] Signed On 08-04-2024 02:23:55 EDT by Anayacorie LeyvaRare Pink Recent Results (from the past 48 hours) [...] 364 ms QTC Interval 461 ms P [place] 35 degrees QRS [place] 80 degrees T [place] 47 degrees [place] Interval 154 ms Drug screen panel, emergency [...] CDT 08/04/24: pending Ordered given recidivistic behavior [id number]05-06-[facility]25 History and physical note* Robert Coats MD [...] No known injury. 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 year old male with a PMH of alcohol abuse, alcohol withdrawal, arthritis, cerebral artery occlusion with cerebral infarction, cerebrovascular disease, GERD, HTN, insomnia that was admitted for detox from alcohol. Patient has a long history of alcohol use disorder and has been admitted to the [facility] multiple times in the past for similar presentation, with last known admission to the detox unit on 06/02/2024 the patient left A on 06/04/2024. Maria De Jesus Hogan states that prior to presentation, he last admitted to [facility] detox in May. At the time of that admission, [facility] [...] states that he wants to go to [facility] on discharge, as he felt that [...] treatment, uncomplicated (HCC) 06/02/2024 Alcohol withdrawal, uncomplicated ([facility]) 08/31/2019 Alcohol withdrawal, with unspecified complication (HCC) 10/02/2019 Alcohol withdrawal, with unspecified complication (HCC) 10/02/2019 Alcoholic intoxication without complication ([facility]HCC) (HCC) 04/10/2024 Alcoholism ([facility]) ([facility]) Anxiety Apical lung nodule Arthritis Maria De Jesus Cerebral artery occlusion with cerebral infarction (HCC) Cerebrovascular disease Depression GERD (gastroesophageal reflux disease) Maria De Jesus Hypertension Insomnia Lung nodule Past Surgical History Past Surgical History: Procedure Laterality Date COLONOSCOPY 06/10/2020 EGD/Dr Madison/AMANDA CYST REMOVAL face EGD (HISTORICAL) 07/23/2022 Dr. Estrella-[facility] SMALL INTESTINE SURGERY UPPER GASTROINTESTINAL ENDOSCOPY 09/27/2021 normal WISDOM TOOTH EXTRACTION Family History Family History Problem Relation Name Age of Onset Depression Sister Maria De Jesus Hogan Other ([id number]) Sister Maria De Jesus Hogan agoraphobia Arthritis Sister Maria De Jesus Hogan Cancer Mother Maria De Jesus Hogan colon rectal cancer; dx after age 50 Other ([id number]) Mother Maria De Jesus Hogan alcoholism Alcohol abuse Mother Maria De Jesus Hogan Stroke Mother Maria De Jesus Hogan Other ([phone]) Father Maria De Jesus Hogan h/o rheumatic fever, cardiac arrest due to bee sting Hypertension Father Maria De Jesus Hogan [place] [employer] [place] Tobacco Use: High Risk (08/03/2024) Patient History [...] 0 min Stress: Stress Concern Present (08/04/2024) [employer] - Occupational Stress Questionnaire Feeling of Stress : To some extent Social Connections: Moderately Isolated (08/04/2024) Social Connection and Isolation Panel [NHANES] Frequency of Communication with Friends and Family: Twice a week Frequency of Social Gatherings with Friends and Family: Twice a week Attends Hinduism Services: Never Active Member of Clubs or [...] Year: No Utilities: Not At Risk (08/04/2024) [facility] Utilities Threatened with loss of utilities: No Recent Concern: Utilities - At Risk (05/08/2024) [facility] Utilities Threatened with loss of utilities: Yes [...] Electronically Signed On 08-04-2024 02:23:55 EDT by [employer] Recent Results (from the past 48 hours) [...] 364 ms QTC Interval 461 ms P [place] 35 degrees QRS [place] 80 degrees [place] 47 degrees [place] Interval 154 ms Drug screen panel, emergency [...] Ordered given recidivistic behavior documented in this [facility]05-06-2025 Note* Care Coordination - JEREMY Solis - 08/04/2024 8:55 AM EDT Patient reports plans to engage in [facility]. Declining residential as an option at current time. TABLE FILLER will assist with scheduling patient intake appointment. [facility] [id number] Note* Care Coordination - JEREMY Solis - 08/04/2024 8:55 AM EDT Patient reports plans to engage in [facility]. Declining residential as an option at current time. TABLE FILLER will assist with scheduling patient intake appointment. [facility] [id number] Consult note* Camryn Copeland APRN - ROTOPRINTER - 08/04/2024 8:24 AM EDT Hospital Medicine Consult Patient - Maria De Jesus Hogan, Age - 58 y.o. - 1965 Room Number - [id number] A Consulting - Bryan Rodriguez MD Primary Care Physician - [id number] Date of Admission - 08/03/2024 4:56 PM [...] CYST REMOVAL face EGD (HISTORICAL) 07/23/2022 Dr. Estrella-[facility] SMALL INTESTINE SURGERY UPPER GASTROINTESTINAL ENDOSCOPY [...] 0 min Stress: Stress Concern Present (08/04/2024) [employer] - Occupational Stress Questionnaire Feeling of Stress : To some extent Social Connections: Moderately Isolated (08/04/2024) Social Connection and Isolation Panel [NHANES] Frequency of Communication with Friends and Family: Twice a week Frequency of Social Gatherings with Friends and Family: Twice a week Attends Hinduism Services: Never Active Member of Clubs or [...] Depression Sister Maria De Jesus Hogan Other ([id number]) Sister Maria De Jesus Hogan agoraphobia Arthritis Sister Maria De Jesus Hogan Cancer Mother Maria De Jesus Hogan colon rectal cancer; dx after age 50 Other ([id number]) Mother Maria De Jesus Hogan alcoholism Alcohol abuse Mother Maria De Jesus Hogan Stroke Mother Maria De Jesus Hogan Other ([id number]) Father Maria De Jesus Hogan h/o rheumatic [...] 364 ms QTC Interval 461 ms P [place] 35 degrees QRS [place] 80 degrees T [place] 47 degrees [place] Interval 154 ms Drug screen panel, emergency [...] JUAN Copeland CNP Division of Hospitalist Medicine [facility] Cosigned by Dawn Sanchez MD at 08/04/2024 11:16 AM EDT Associated attestation - Dawn Sanchez MD - 08/04/2024 11:16 AM EDT Hospitalist Progress Note 08/04/2024 0615-1129: Please page me ([phone]) for patient care issues. [phone]: Please page [facility] night Hospitalist for any issues. Subjective: [...] cerebral artery occlusion with infarct, presented to [facility] on 08/03 for alcohol detox at 's [...] Dawn Sanchez MD Division of Hospitalist Medicine [facility] 11:08 AM 08/04/24 [facility] Phone: 1(363) 130-175205-06-2025 Consult note* Camryn Copeland, JUAN - ROTOPRINTER - 08/04/2024 8:24 AM EDT Hospital Medicine Consult Patient - Maria De Jesus Hogan, Age - 58 y.o. - 1965 Room Number - [id number] A Consulting - Bryan Rodriguez MD Primary Care Physician - [id number] Date of Admission - 08/03/2024 4:56 PM [...] CYST REMOVAL face EGD (HISTORICAL) 07/23/2022 Dr. Estrella-[facility] SMALL INTESTINE SURGERY UPPER GASTROINTESTINAL ENDOSCOPY [...] 0 min Stress: Stress Concern Present (08/04/2024) [employer] - Occupational Stress Questionnaire Feeling of Stress : To some extent Social Connections: Moderately Isolated (08/04/2024) Social Connection and Isolation Panel [NHANES] Frequency of Communication with Friends and Family: Twice a week Frequency of Social Gatherings with Friends and Family: Twice a week Attends Hinduism Services: Never Active Member of Clubs or [...] Depression Sister Maria De Jesus Hogan Other ([id number]) Sister Maria De Jesus Hogan agoraphobia Arthritis Sister Maria De Jesus Hogan Cancer Mother Maria De Jesus Hogan colon rectal cancer; dx after age 50 Other ([id number]) Mother Maria De Jesus Hogan alcoholism Alcohol abuse Mother Maria De Jesus Hogan Stroke Mother Maria De Jesus Hogan Other ([phone]) Father Maria De Jesus Hogan h/o rheumatic [...] 364 ms QTC Interval 461 ms P [place] 35 degrees QRS [place] 80 degrees T [place] 47 degrees [place] Interval 154 ms Drug screen panel, emergency [...] 08/04/2024 11:16 AM EDT Hospitalist Progress Note 08/04/20246993300-5091: Please page me ([phone]) for patient care issues. [phone]: Please page [facility] night Hospitalist for any issues. Subjective: [...] cerebral artery occlusion with infarct, presented to [facility] on 08/03 for alcohol detox at 's [...] Dawn Sanchez MD Division of Hospitalist Medicine [employer] care solutions 11:08 AM 08/04/24 documented in this [facility]05-06-2025 Hospital Discharge instructions* Discharge Instr - Other [...] National Suicide Prevention Hotline if needed at: 4-686-358-BZXL (2186) Please call the following number should you have questions regarding your discharge or aftercare appointments: [facility] * Attachments The following attachments cannot be sent through Care Everywhere. * Alcohol Use Disorder Discharge Instructions (Irish) documented in this [facility]05-06-2025 Note* Care Coordination - JEREMY Solis - 08/04/2024 8:00 AM EDT Behavioral Health Psycho-Social Assessment (Social Work) Date: 08/04/2024 Patient Name: Maria De Jesus Hogan : 1965 Identifying Information: Patient is a 58-year-old male mated to [facility] for detox and alcohol. Patient is well-known to addiction medicine team. Previously on the unit on 06/02/2024 but left [facility] 06/04/2024. Reports that his family members had [...] as an adult. Patient denies any history [place] or status. Family Constellation/Childhood History: Patient reports that he is currently to his living in [facility]. Patient reports that he has 3 biological children and 4 stepchildren. Patient reports that his father in his 11 years old. Patient did not report his mother is stillalive currently. Patient was born and raised in [place], [place] by his mother and father. 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 Patient denies SSI/SSD. Cultural/Spirituality/Leisure: Patient denies any cultural needs or concerns at the current time. Patient denies identify any hinduism preference. It is unknown if patient is [...] Plan: Current plan is for patient stabilization. TABLE FILLER patient will continue work together to establish appropriate aftercare plan based on patient sobriety, needs, and resource available to local community. Patient encouraged to engage in all activities that are offered to them while they are on the unit.Patient report needing additional current time. Patient encouraged to seek out TABLE FILLER unit staff should they identify any additional [...] to contact the dictating provider for clarification. [id number] Note* Care Coordination - JEREMY Solsi - 08/04/2024 8:00 AM EDT Behavioral Health Psycho-Social Assessment (Social Work) Date: 08/04/2024 Patient Name: Maria De Jesus Hogan : 1965 Identifying Information: Patient is a 58-year-old male mated to [facility] for detox and alcohol. Patient is well-known [...] as an adult. Patient denies any history [place] or status. Family Constellation/Childhood History: Patient reports that he is currently to his living in [facility]. Patient reports that he has 3 biological children and 4 stepchildren. Patient reports that his father in his 11 years old. Patient did not report his mother is stillalive currently. Patient was born and raised in [place], [place] by his mother and father. 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 Patient denies SSI/SSD. Cultural/Spirituality/Leisure: Patient denies any cultural needs or concerns at the current time. Patient denies identify any hinduism preference. It is unknown if patient is [...] Plan: Current plan is for patient stabilization. TABLE FILLER patient will continue work together to establish appropriate aftercare plan based on patient sobriety, needs, and resource available to local community. Patient encouraged to engage in all activities that are offered to them while they are on the unit.Patient report needing additional current time. Patient encouraged to seek out TABLE FILLER unit staff should they identify any additional [...] to contact the dictating provider for clarification. [facility] [id number] Plan of care note* Care Plan - Kristina Hampton RN - 08/04/2024 6:50 AM EDT Care plan reviewed [facility] [id number] Nurse Note* Kristina Hampton RN - 08/04/2024 [...] in condition. Will monitor pt for safety. [facility] [id number] Emergency department Note* Jacqueline Richardson RN - 08/04/2024 12:16 AM EDT Transport here for pt. [facility] HospitalFuzfkc93-24-0320 Emergency department Note* Jacqueline Richardson RN - 08/04/2024 12:16 AM EDT Transport here for pt. * Jacqueline Richardson RN - 08/03/2024 9:09 PM EDT Called report to RN at [facility]. * Dulce Nugent RN - 08/03/2024 5:06 [...] No known injury. 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 Estrella-[facility] SMALL INTESTINE SURGERY UPPER GASTROINTESTINAL ENDOSCOPY [...] Depression Sister Maria De Jesus Hogan Other ([id number]) Sister Maria De Jesus Hogan agoraphobia Arthritis Sister Maria De Jesus Hogan Cancer Mother Maria De Jesus Hogan colon rectal cancer; dx after age 50 Other ([id number]) Mother Maria De Jesus Hogan alcoholism Alcohol abuse Mother Maria De Jesus Hogan Stroke Mother Maria De Jesus Hogan Other ([phone]) Father Maria De Jesus Hogan h/o rheumatic [...] 0 min Stress: Stress Concern Present (06/03/2024) [employer] - Occupational Stress Questionnaire Feeling of Stress : To some extent Social Connections: Socially Isolated (06/04/2024) Social Connection and Isolation Panel [NHANES] Frequency of Communication with Friends and Family: Never Frequency of Social Gatherings with Friends and Family: Never Attends Hinduism Services: Never Active Member of Clubs or [...] Response: Oriented Best Motor Response: Follows commands [place] Coma Scale Score: 15 PHYSICAL EXAM ED [...] Abnormal ETHANOL IN SER/PLAS 375 (*) Narrative: CRUISE COORDINATOR depression is seen >100 mg/dL. NOTE: This [...] dose of phenobarbital prior to transfer to [facility]. Discussed plans for admission with patient and his , they were comfortable and agreeable plans to be admitted at [facility]. Patient left [facility] in stable condition with stable vitals. [...] the ED: improving (Consults) Discussed case with windows consultant, detox. They agree with current work [...] Demarco DO 08/05/24 0826 documented in this [facility]05-05-2025 Emergency department Note* Jacqueline Richardson RN - 08/03/2024 9:09 PM EDT Called report to RN at [facility]. [facility] [id number] Emergency department Note* Dulce Nugetn RN - 08/03/2024 5:06 PM EDT Patient here for a rash on his right rib area around to his back. Burning and painful. Patient alsowants to be in rehab for his drinking his last drink was today and he drinks at least [address] [facility] [id number] Physician Emergency department Note* Debby Mckoy PA-C - 08/03/2024 4:54 PM EDT Images from the original note were not included. EMERGENCY DEPARTMENT ENCOUNTER Pt Name: Maria De Jesus Hogan Birthdate 1965 Date of evaluation: 08/03/2024 ED Provider: Debby Mckoy PA-C CHIEF COMPLAINT Chief Complaint Patient presents with Rash On abdomen Back Pain Middle of back. No known injury. 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 HISTORY OF PRESENT ILLNESS (Location/Symptom, [...] intoxication without complication (CMS/HCC) (HCC) 04/10/2024 Alcoholism ([facility]) (HCC) Anxiety Apical lung nodule Arthritis Maria De Jesus Cerebral artery occlusion with cerebral infarction (HCC) Cerebrovascular disease Depression GERD (gastroesophageal reflux disease) Maria De Jesus Hypertension Insomnia Lung nodule SURGICAL HISTORY Past Surgical History: Procedure Laterality Date COLONOSCOPY 06/10/2020 EGD/Dr Madison/AMANDA CYST REMOVAL face EGD (HISTORICAL) 07/23/2022 Dr. Estrella-[facility] SMALL INTESTINE SURGERY UPPER GASTROINTESTINAL ENDOSCOPY [...] Depression Sister Maria De Jesus Hogan Other ([id number]) Sister Maria De Jesus Hogan agoraphobia Arthritis Sister Maria De Jesus Hogan Cancer Mother Maria De Jesus Hogan colon rectal cancer; dx after age 50 Other ([id number]) Mother Maria De Jesus Hogan alcoholism Alcohol abuse Mother Maria De Jesus Hogan Stroke Mother Maria De Jesus Hogan Other ([id number]) Father Maria De Jesus Hogan h/o rheumatic [...] 0 min Stress: Stress Concern Present (06/03/2024) [employer] - Occupational Stress Questionnaire Feeling of Stress : To some extent Social Connections: Socially Isolated (06/04/2024) Social Connection and Isolation Panel [NHANES] Frequency of Communication with Friends and Family: Never Frequency of Social Gatherings with Friends and Family: Never Attends Hinduism Services: Never Active Member of Clubs or [...] Homeless in the Last Year: No SCREENINGS [place] Coma Scale Best Eye Response: Spontaneous Best [...] Abnormal ETHANOL IN SER/PLAS 375 (*) Narrative: CRUISE COORDINATOR depression is seen >100 mg/dL. NOTE: This [...] patch (1 patch TransDERmal Medication Applied 08/03/24 8666) gabapentin (Neurontin) capsule 600 mg (has no [...] dose of phenobarbital prior to transfer to [facility]. Discussed plans for admission with patient and his , they were comfortable and agreeable plans to be admitted at [facility]. Patient left [facility] in stable condition with stable vitals. [...] Demarco DO at 08/03/2024 9:[address] [facility] [id number] Physician Emergency department Note* Matthew Demarco DO [...] the ED: improving (Consults) Discussed case with windows consultant, detox. They agree with current work [...] [employer] Matthew Demarco DO 08/05/24 0826 [facility] Phone: 1(383) 374-386404-17-2025 Telephone encounter Note* Telephone Encounter - [facility] - 07/16/2024 10:13 AM EDT Attempt #3 LVM for patient to call our office to schedule follow up to review CT results. [facility] [id number] Miscellaneous Notes* Telephone Encounter - [facility] - 07/16/2024 10:13 AM EDT Attempt #3 LVM for patient to call our office to schedule follow up to review CT results. * Telephone Encounter - [facility] - 06/25/2024 9:11 AM EDT LVM for patient to call our office to reschedule missed appointment with ML. Will send [employer] message as well. documented in this [facility]04-02-2025 Emergency department Note* Goyo Melara MD - [...] CYST REMOVAL face EGD (HISTORICAL) 07/23/2022 Dr. Estrella-[facility] SMALL INTESTINE SURGERY UPPER GASTROINTESTINAL ENDOSCOPY [...] Depression Sister Maria De Jesus Hogan Other ([phone]) Sister Maria De Jesus Hogan agoraphobia Arthritis Sister Maria De Jesus Hogan Cancer Mother Maria De Jesus Hogan colon rectal cancer; dx after age 50 Other ([id number]) Mother Maria De Jesus Hogan alcoholism Alcohol abuse Mother Maria De Jesus Hogan Stroke Mother Maria De Jesus Hogan Other ([phone]) Father Maria De Jesus Hogan h/o rheumatic [...] 0 min Stress: Stress Concern Present (06/03/2024) [employer] - Occupational Stress Questionnaire Feeling of Stress : To some extent Social Connections: Socially Isolated (06/04/2024) Social Connection and Isolation Panel [NHANES] Frequency of Communication with Friends and Family: Never Frequency of Social Gatherings with Friends and Family: Never Attends Hinduism Services: Never Active Member of Clubs or [...] PM PATIENT REFERRED TO: Lynda Rasheed MD [address] [place] [address] [address] [facility] [phone] As needed DISCHARGE MEDICATIONS: New Prescriptions No [...] Goyo Melara MD 07/01/242048 documented in this [facility]04-02-2025 Physician Emergency department Note* Goyo Melara MD [...] CYST REMOVAL face EGD (HISTORICAL) 07/23/2022 Dr. Estrella-[facility] SMALL INTESTINE SURGERY UPPER GASTROINTESTINAL ENDOSCOPY [...] Depression Sister Maria De Jesus Hogan Other ([id number]) Sister Maria De Jesus Hoagn agoraphobia Arthritis Sister Maria De Jesus Hogan Cancer Mother Maria De Jesus Hogan colon rectal cancer; dx after age 50 Other ([id number]) Mother Maria De Jesus Hogan alcoholism Alcohol abuse Mother Maria De Jesus Hogan Stroke Mother Maria De Jesus Hogan Other ([id number]) Father Maria De Jesus Hogan h/o rheumatic [...] 0 min Stress: Stress Concern Present (06/03/2024) [employer] - Occupational Stress Questionnaire Feeling of Stress : To some extent Social Connections: Socially Isolated (06/04/2024) Social Connection and Isolation Panel [NHANES] Frequency of Communication with Friends and Family: Never Frequency of Social Gatherings with Friends and Family: Never Attends Hinduism Services: Never Active Member of Clubs or [...] PM PATIENT REFERRED TO: Lynda Rasheed MD [address] [place] [address] [address] [facility] [address] As needed DISCHARGE MEDICATIONS: New Prescriptions No [...] Emergency Medicine Provider Goyo Melara MD 07/01/242048 [facility] HospitalTwrajz34-71-1273 Telephone encounter Note* Telephone Encounter - Jennifer Goins 06/25/2024 9:11 AM EDT LVM for patient to call our office to reschedule missed appointment with ML. Will send Hexaform[employer] message as well. [facility] [id number] Telephone encounter Note* Telephone Encounter - Tea Reno LPN - 06/23/2024 9:44 AM EDT Recent Visits Date Type Provider Dept 06/16/24 Office Visit Lynda Rasheed MD [facility] 05[facility]20[facility]24 [facility] Office Visit Lynda Rasheed MD [facility] Showing recent visits within past [...] recent labs completed in chart? N/A None [facility] [id number] Miscellaneous Notes* Telephone Encounter - Tea Reno LPN - 06/23/2024 9:44 AM EDT Recent Visits Date Type Provider Dept 06/16/24 Office Visit Lynda Rasheed MD [facility] 05/20/24 [facility]24 Office Visit Lynda Rasheed MD [facility] Showing recent visits within past [...] in chart? N/A None documented in this [facility] HospitalYellsu06-98-5169 Telephone encounter Note* Telephone Encounter - Tea Reno LPN - 06/23/2024 9:42 AM EDT Recent Visits Date Type Provider Dept 06/16/24 Office Visit Lynda Rasheed MD [facility] 05/20/24 Office Visit Lynda Rasheed MD [facility] 02/05/24 Office Visit Lynda Rasheed MD [facility] Showing recent visits within past 365 [...] recent labs completed in chart? N/A None [facility] [id number] Miscellaneous Notes* Telephone Encounter - Tea Reno LPN - 06/23/2024 9:42 AM EDT Recent Visits Date Type Provider Dept 06/16/24 Office Visit Lynda Rasheed MD [facility] 05/20/24 Office Visit Lynda Rasheed MD [facility] 02/05/24 Office Visit Lynda Rasheed MD [facility] Showing recent visits within past 365 [...] in chart? N/A None documented in this [facility]03-18-2025 History of Present illness Narrative* Lynad Rasheed MD - 06/16/2024 2:00 PM EDT Images from the original note were not included. [facility] - [address] [facility] [address] Dept: [phone] Dept Loc: [phone] Reason for Visit: Follow-up Assessment and Plan [...] Severe alcohol use disorder (HCC) follow-up with curriculum specialist in #6 lumbar back pain. Continue [...] occasions for alcohol abuse. Hehas tried the curriculum specialist outpatient program. He states and currently [...] CYST REMOVAL face EGD (HISTORICAL) 07/23/2022 Dr. Estrella-[facility] SMALL INTESTINE SURGERY UPPER GASTROINTESTINAL ENDOSCOPY 09/27/2021 normal WISDOM TOOTH EXTRACTION Family History Problem Relation Name Age of Onset Depression Sister Maria De Jesus Hogan Other ([id number]) Sister Maria De Jesus Hogan agoraphobia Arthritis Sister Maria De Jesus Hogan Cancer Mother Maria De Jesus Hogan colon rectal cancer; dx after age 50 Other ([id number]) Mother Maria De Jesus Hogan alcoholism Alcohol abuse Mother Mari aDe Jesus Hogan Stroke Mother Maria De Jesus Hogan Other ([id number]) Father Maria De Jesus Hogan h/o rheumatic [...] EDT Lynda Rasheed MD documented in this [facility]03-10-2025 Telephone encounter Note* Telephone Encounter - Anat Esquivel RN - 06/08/2024 2:39 PM EDT We have been unable to reach your patient to schedule their testing. Test Name: US abdomen complete 1st attempt, via Drybar message, 05/23/24 JS 2nd attempt called LVM. TE to office. sent Drybar message. 06/08/[address] [facility]-7830 Miscellaneous Notes* Telephone Encounter - Anat Esquivel RN - 06/08/2024 2:39 PM EDT We have been unable to reach your patient to schedule their testing. Test Name: US abdomen complete 1st attempt, via Drybar message, 05/23/24 JS 2nd attempt called LVM. TE to office. sent Drybar message. 06/08/24 LR documented in this [facility]03-07-2025 Telephone encounter Note* Telephone Encounter - Hung Shin LPN - 06/05/2024 8:[address] [facility] [facility]wwag41-66-2232 Miscellaneous Notes* Telephone Encounter - Hung Shin LPN - 06/05/2024 8:54 AM EST LVM * Telephone Encounter - Tosha Lopez - 06/03/2024 1:15 PM EST LVM for pt to call office to reschedule CT scan and follow up kavon Kristin Lara. documented in this [facility]SKe[facility] HospitalWqvxtj13-14-3600 Note* Care Coordination - JEREMY Solis - 06/04/2024 3:11 PM EST Social work consult placed for patient. Notified areas of S NAHOMY noted at current time. Social work consult is cleared. [facility] HospitalTfxxld15-29-5315 Note* Care Coordination - JEREMY Solis - 06/04/2024 3:11 PM EST Social work consult placed for patient. Notified areas of S NAHOMY noted at current time. Social work consult is cleared. [facility] HospitalEytrhr84-12-0053 Miscellaneous Notes* Care Coordination - JEREMY Solis - 06/04/2024 3:11 PM EST Social work consult placed for patient. Notified areas of S NAHOMY noted at current time. Social work consult is cleared. * Group Note - Aurora Camarena - 06/03/2024 12:24 PM EST Department: [facility] ACTIVITIES THERAPY Group Topic: Recreation Therapy Group [...] Jesus Hogan Date of : 1965 MR: [id number] Appearance: Good eye contact Affect: Appropriate Behavior: [...] as an adult. Patient denies any history [place] or status. Family Constellation/Childhood History: Patient reports that he is currently to his living in [facility]. Patient reports that he has 3 biological children and 4 stepchildren. Patient reports that his father in his 11 years old. Patient did not report his mother is stillalive currently. Patient was born and raised in [place], [place] by his mother and father. 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 Patient denies SSI/SSD. Cultural/Spirituality/Leisure: Patient denies any cultural needs or concerns at the current time. Patient denies identify any hinduism preference. It is unknown if patient is [...] current time. Patient encouraged to seek out TABLE FILLER unit staff should they identify any additional [...] dictating provider for clarification. documented in this [facility]03-06-2025 [facility] 06-04-2024 Hospital course Narrative* Jonatan Mckeon MD - 06/04/2024 3:08 PM EST Images from the original note were not included. ADDICTION MEDICINE 4E DETOX UNIT DISCHARGE SUMMARY __ Patient MRN Janis Hogan [id number] 1965 Admit Date Discharge Date 06/02/2024 06/04/2024 [...] tomorrow and then has a flight to [facility] to [place]. He claims to be enrolling into a residential alcohol treatment program in [place] but I have seen no proof of that. Due to hypertension and tachycardia ongoing on 06/04/24 I did not feel he was hemodynamically stable enough for discharge. I did order a 380 mg IM Vivitrol injection which he obtained on 06/04/24 before deciding to leave [place]. He was recently admitted earlier in May [...] about these medications Vivitrol injection Follow Up [facility] Addiction IOP [address] [address] Call To schedule intake appointment for IOP assessment [facility] [address] [address] For primary care needs. Future Appointments Date Time Provider Department Center 06/05/2024 10:20 AM JUAN Bajwa CNP [facility] None 06/16/2024 2:00 PM Lynda Rasheed MD [facility] The patient was also instructed [...] summary: < 30 minutes documented in this [facility]03-06-2025 Nurse Note* Nicole Albrecht RN - 06/04/2024 2:03 PM EST Patient reports he has a CT scan tomorrow morning at [facility] and then will be leaving for addiction [...] a steady gait and is without complaint. [facility] HospitalDuueif71-88-8645 Nurse Note* Nicole Albrecht RN - 06/04/2024 2:03 PM EST Patient reports he has a CT scan tomorrow morning at [facility] and then will be leaving for addiction [...] EST Med. Rec. Done with Jesse at [facility] at 1230. * Nanette De Santiago RN [...] compliant with his medications. documented in this [facility]03-06-2025 Nurse Note* Nicole Albrecht RN - 06/04/2024 12:30 PM EST No issue reported after the Naltrexone pill given to the patient. He reports last time he took the medication it really helped his cravings. He reports taking the oral and injection form once in the past. [facility] HospitalHguqqv68-25-5088 History of Present illness Narrative* Christie Greene, [...] go to a 90 day rehab in [place], [place] tomorrow. He is agreeable to starting [...] Medical stabilization. Labs/tests/tasks to review: Monitor HR/tachycardia. Case Filler to coordinate care with: N/A. Will follow. [...] up in 6 weeks. documented in this [facility]03-06-2025 Nurse Note* Nicole Albrecht RN - 06/04/2024 [...] so if neededthey could properly treat him. [facility] HospitalTqsntg81-73-5044 Hospital Discharge instructions* Discharge Instructions* Christie Greene DO - 06/04/2024 10:51 AM EST Images from the original note were not included. [facility] PROGRAMS __ Addiction Medicine Intensive Outpatient Program [place] ([facility]): [phone] [facility]: [phone] [place]: [phone] Behavioral Health Intensive Outpatient Program [place] ([facility]): [phone] [place]: [phone] First Step [place] ([facility]): [phone] [facility]: [phone] Partial Hospitalization Program [place] ([facility]): [phone] Traumatic Stress Center [place] ([facility]): [phone] Vivitrol Clinic [place] ([facility]): [phone] Alcoholics Anonymous Meetings [email or web address] [facility] [address] [place] [phone] * Discharge Instr - Other Orders* JEREMY [...] National Suicide Prevention Hotline if needed at: 6-374-597-EKCX (6464) Please call the following number should you have questions regarding your discharge or aftercare appointments: [facility] documented in this [facility]03-06-2025 Nurse Note* Evelyn Abad RN - 06/04/2024 12:07 AM EST Patient is up and steady, seen socializing in group room. Pt is cooperative and med compliant. Pt denies SI/HI/AVH. Pt encouraged to notify staff for any questions and concerns. [facility] HospitalRmcxoy09-00-8307 Nurse Note* Nanette De Santiago RN - [...] CIWA of 5. Continue to monitor patient. [facility] HospitalZzvhig71-87-6489 NotePatient declined smoking cessation counseling at this time. He was counseled on 05/09/2024. Patient has all of the smoking cessation handouts. Will follow up in 6 weeks.[facility]03-05-[facility] Nurse Note* Nanette De Santiago RN - 06/03/2024 1:39 PM EST Patient received Nicotine Lozenge as per orders PRN PO at 1340, and 1740. [facility] HospitalXidzed23-19-1973 Telephone encounter Note* Telephone Encounter - Tosha Lopez - 06/03/2024 1:15 PM EST LVM for pt to call office to reschedule CT scan and follow up kavon Lara. [facility] HospitalJtvyuu61-73-5645 Nurse Note* Nanette De Santiago RN - 06/03/2024 12:41 PM EST Med. Rec. Done with Jesse at [facility] at 1230. [facility] HospitalIrbxby63-99-6833 Nurse Note* Nanette De Santiago RN - 06/03/2024 12:29 PM EST Patient received PO PRN Tylenol as per orders at 1228 for lower back arthritis pain. [facility] HospitalNfvdkp64-97-4273 Group counseling note* Group Note - Aurora Camarena - 06/03/2024 12:24 PM EST Department: [facility] ACTIVITIES THERAPY Group Topic: Recreation Therapy Group [...] Jesus Hogan Date of : 1965 MR: [id number] Appearance: Good eye contact Affect: Appropriate Behavior: [...] Alcohol withdrawal with inpatient treatment, uncomplicated (HCC) [facility]03-05-2025 Nurse Note* Nanette De Santiago RN - 06/03/2024 11:59 AM EST Patient received Nicotine Lozenge at 1139 and 1705 PRN PO as per orders. Patient received PO PRN Albuterol as per orders at 1705. [facility] Xzrsil13-93-4609 Note* Care Coordination - JEREMY Solis - 06/03/2024 11:44 AM EST Behavioral Health Psycho-Social Assessment (Social Work) Date: 06/03/2024 Patient Name: Maria De Jesus Hogan : 1965 Identifying Information: Patient is a 58-year-old male mated to [facility] for detox and alcohol. Patient is well-known [...] as an adult. Patient denies any history [place] or status. Family Constellation/Childhood History: Patient reports that he is currently to his living in [facility]. Patient reports that he has 3 biological children and 4 stepchildren. Patient reports that his father in his 11 years old. Patient did not report his mother is stillalive currently. Patient was born and raised in [place], [place] by his mother and father. 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 Patient denies SSI/SSD. Cultural/Spirituality/Leisure: Patient denies any cultural needs or concerns at the current time. Patient denies identify any hinduism preference. It is unknown if patient is [...] current time. Patient encouraged to seek out TABLE FILLER unit staff should they identify any additional [...] to contact the dictating provider for clarification. [facility] HospitalQiqwyy40-27-4141 Note* Care Coordination - JEREMY Solis - 06/03/2024 11:44 AM EST Behavioral Health Psycho-Social Assessment (Social Work) Date: 06/03/2024 Patient Name: Maria De Jesus Hogan : 1965 Identifying Information: Patient is a 58-year-old male mated to [facility] for detox and alcohol. Patient is well-known [...] as an adult. Patient denies any history [place] or status. Family Constellation/Childhood History: Patient reports that he is currently to his living in [facility]. Patient reports that he has 3 biological children and 4 stepchildren. Patient reports that his father in his 11 years old. Patient did not report his mother is stillalive currently. Patient was born and raised in [place], [place] by his mother and father. 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 Patient denies SSI/SSD. Cultural/Spirituality/Leisure: Patient denies any cultural needs or concerns at the current time. Patient denies identify any hinduism preference. It is unknown if patient is [...] current time. Patient encouraged to seek out TABLE FILLER unit staff should they identify any additional [...] to contact the dictating provider for clarification. [facility] HospitalRoaxmw80-08-4338 History and physical note* Christie Greene, - [...] Jesus Hogan was recently admitted to the [facility] detox unit from 05/07 through 05/10. [...] alcohol intake with his wealth uncle in [place], [place] and his uncle agreed to bring [...] intoxication without complication (CMS/HCC) (HCC) 04/10/2024 Alcoholism ([facility]/HCC) (HCC) Anxiety Apical lung nodule Arthritis Maria De Jesus Cerebral artery occlusion with cerebral infarction (HCC) Cerebrovascular disease Depression GERD (gastroesophageal reflux disease) Maria De Jesus Hypertension Insomnia Past Surgical History Past Surgical History: Procedure Laterality Date COLONOSCOPY 06/10/2020 EGD/Dr Madison/AMANDA CYST REMOVAL face EGD (HISTORICAL) 07/23/2022 Dr. Estrella-[facility] SMALL INTESTINE SURGERY UPPER GASTROINTESTINAL ENDOSCOPY 09/27/2021 normal WISDOM TOOTH EXTRACTION Family History Family History Problem Relation Name Age of Onset Depression Sister Maria De Jesus Hogan Other ([id number]) Sister Maria De Jesus Hogan agoraphobia Arthritis Sister Maria De Jesus Hogan Cancer Mother Maria De Jesus Hogan colon rectal cancer; dx after age 50 Other ([id number]) Mother Maria De Jesus Hogan alcoholism Alcohol abuse Mother Maria De Jesus Hogan Stroke Mother Maria De Jesus Hogan Other ([id number]) Father Maria De Jesus Hogan h/o rheumatic fever, cardiac arrest due to bee sting Hypertension Father Maria De Jesus Hogan [employer] [place] Tobacco Use: High Risk (05/25/2024) Patient History [...] 0 min Stress: Stress Concern Present (06/03/2024) [employer] - Occupational Stress Questionnaire Feeling of Stress : To some extent Social Connections: Socially Isolated (05/08/2024) Social Connection and Isolation Panel [NHANES] Frequency of Communication with Friends and Family: Twice a week Frequency of Social Gatherings with Friends and Family: Never Attends Hinduism Services: Never Active Member of Clubs or [...] Last Year: No Utilities: At Risk (05/08/2024) [facility] Utilities Threatened with loss of utilities: Yes [...] go to a 90 day rehab in [place] on Saturday. Will discuss MAT with [...] any my colleagues in the outpatient setting [facility]Snahzb23-51-9757 [facility]03-05-2025 History and physical note* Christie Greene, - [...] Jesus Hogan was recently admitted to the [facility] detox unit from 05/07 through 05/10. [...] alcohol intake with his wealth uncle in [place], [place] and his uncle agreed to bring [...] CYST REMOVAL face EGD (HISTORICAL) 07/23/2022 Dr. Estrella-[facility] SMALL INTESTINE SURGERY UPPER GASTROINTESTINAL ENDOSCOPY 09/27/2021 normal WISDOM TOOTH EXTRACTION Family History Family History Problem Relation Name Age of Onset Depression Sister Maria De Jesus Hogan Other (65886) Sister Maria De Jesus Hogan agoraphobia Arthritis Sister Maria De Jesus Hogan Cancer Mother Maria De Jesus Hogan colon rectal cancer; dx after age 50 Other ([id number]) Mother Maria De Jesus Hogan alcoholism Alcohol abuse Mother Maria De Jesus Hogan Stroke Mother Maria De Jesus Hogan Other (46990) Father Maria De Jesus Hogan h/o rheumatic [...] 0 min Stress: Stress Concern Present (06/03/2024) [employer] - Occupational Stress Questionnaire Feeling of Stress : To some extent Social Connections: Socially Isolated (05/08/2024) Social Connection and Isolation Panel [NHANES] Frequency of Communication with Friends and Family: Twice a week Frequency of Social Gatherings with Friends and Family: Never Attends Hinduism Services: Never Active Member of Clubs or [...] Last Year: No Utilities: At Risk (05/08/2024) [facility] Utilities Threatened with loss of utilities: Yes [...] go to a 90 day rehab in [place] on Saturday. Will discuss MAT with [...] in the outpatient setting documented in this encounterSKeenan Private HospitalSlrqdj93-83-6982 Nurse Note* Claudia Jin RN - 06/03/2024 [...] SI/HI/AVH. Pt is compliant with his medications. [facility]Cjzjhy21-91-8615 Emergency department Note* Helen Winter RN - 06/02/2024 9:51 PM EST Called report to Veronica @ [facility] HospitalObwxgs08-95-3587 Emergency department Note* Helen Winter RN - [...] 06/02/2024 5:37 PM EST Emergency Department Encounter [facility] ED Patient: Maria De Jesus Hogan [...] intoxication without complication (CMS/HCC) (HCC) 04/10/2024 Alcoholism ([facility]/HCC) (HCC) Anxiety Arthritis Maria De Jesus Cerebral artery occlusion with cerebral infarction (HCC) Cerebrovascular disease Depression GERD (gastroesophageal reflux disease) Maria De Jesus Hypertension Insomnia SURGICAL HISTORY Past Surgical History: Procedure Laterality Date COLONOSCOPY 06/10/2020 EGD/Dr Madison/AMANDA CYST REMOVAL face EGD (HISTORICAL) 07/23/2022 Dr. Estrella-[facility] SMALL INTESTINE SURGERY UPPER GASTROINTESTINAL ENDOSCOPY [...] Depression Sister Maria De Jesus Hogan Other (27406) Sister Maria De Jesus Hogan agoraphobia Arthritis Sister Maria De Jesus Hogan Cancer Mother Maria De Jesus Hogan colon rectal cancer; dx after age 50 Other ([id number]) Mother Maria De Jesus Hogan alcoholism Alcohol abuse Mother Maria De Jesus Hogan Stroke Mother Maria De Jesus Hogan Other (34685) Father Maria De Jesus Hogan h/o rheumatic [...] 0 min Stress: Stress Concern Present (05/08/2024) [employer] - Occupational Stress Questionnaire Feeling of Stress : To some extent Social Connections: Socially Isolated (05/08/2024) Social Connection and Isolation Panel [NHANES] Frequency of Communication with Friends and Family: Twice a week Frequency of Social Gatherings with Friends and Family: Never Attends Hinduism Services: Never Active Member of Clubs or [...] none. I also reviewed external records from [facility]. I discussed their care with Admitting [...] 06/03/2024 8:01 PM EST documented in this [facility]03-04-2025 Emergency department Note* Helen Winter RN - 06/02/2024 6:35 PM EST Pt normally drink 6-9 tall boys daily. Today pt only drank 3 and his last drink was about 5pm today. [facility] HospitalSqyrkc37-01-1217 Emergency department Note* Jen Nunez RN - 06/02/2024 5:41 PM EST Pt last drink 30 minutes ago. Pt drank 3 tallboys today. Normally drinks 6-9 tallboys. Would like to get detoxed [facility] HospitalWyxmvx87-18-0510 Physician Emergency department Note* Catalino Diallo DO - 06/02/2024 5:37 PM EST Emergency Department Encounter [facility] ED Patient: Maria De Jesus Hogan [...] [employer] Catalino Diallo DO 06/02/241824 [employer] Phone: [phone]) 677-297703-04-2025 Physician Emergency department Note* Shelly Clarke APRN - ROTOPRINTER - 06/02/2024 5:37 PM EST EMERGENCY DEPARTMENT [...] CYST REMOVAL face EGD (HISTORICAL) 07/23/2022 Dr. Estrella-[facility] SMALL INTESTINE SURGERY UPPER GASTROINTESTINAL ENDOSCOPY [...] Depression Sister Maria De Jesus Hogan Other ([id number]) Sister Maria De Jesus Hogan agoraphobia Arthritis Sister Maria De Jesus Hogan Cancer Mother Maria De Jesus Hogan colon rectal cancer; dx after age 50 Other (10452) Mother Maria De Jesus Hogan alcoholism Alcohol abuse Mother Maria De Jesus Hogan Stroke Mother Maria De Jesus Hogan Other ([id number]) Father Maria De Jesus Hogan h/o rheumatic [...] 0 min Stress: Stress Concern Present (05/08/2024) [employer] - Occupational Stress Questionnaire Feeling of Stress : To some extent Social Connections: Socially Isolated (05/08/2024) Social Connection and Isolation Panel [NHANES] Frequency of Communication with Friends and Family: Twice a week Frequency of Social Gatherings with Friends and Family: Never Attends Hinduism Services: Never Active Member of Clubs or [...] Physician [facility] RAD[facility] (Per Emergency Physician): Interpretation per the [...] none. I also reviewed external records from [facility]. I discussed their care with Admitting [...] Diallo DO at 06/03/2024 8:01 PM EST [facility] Work Phone: [phone] Telephone encounter Note* Telephone Encounter - Tea Reno LPN - 06/02/2024 1:42 PM EST Recent Visits Date Type Provider Dept 05/20/24 Office Visit Lynda Rasheed MD [facility] 02/05/24 Office Visit Lynda Rasheed MD [facility] Showing recent visits within past 365 days and meeting all other requirements Future Appointments Date Type Provider Dept 06/16/24 Appointment Lynda Rasheed MD [facility] Showing future appointments within next 90 [...] recent labs completed in chart? N/A None [facility] Ytmtbl12-35-8619 Miscellaneous Notes* Telephone Encounter - Tea Reno LPN - 06/02/2024 1:42 PM EST Recent Visits Date Type Provider Dept 05/20/24 Office Visit Lynda Rasheed MD [facility] 02/05/24 Office Visit Lynda Rasheed MD [facility] Showing recent visits within past 365 days and meeting all other requirements Future Appointments Date Type Provider Dept 06/16/24 Appointment Lynda Rasheed MD [facility] Showing future appointments within next 90 [...] in chart? N/A None documented in this encounterSKeenan Private HospitalMtvyzx45-67-7710 Telephone encounter Note* Telephone Encounter - Tea Reno LPN - 06/02/2024 1:41 PM EST Recent Visits Date Type Provider Dept 05/20/24 Office Visit Lynda Rasheed MD [facility] 02/05/24 Office Visit Lynda Rasheed MD [facility] Showing recent visits within past 365 days and meeting all other requirements Future Appointments Date Type Provider Dept 06/16/24 Appointment Lynda Rasheed MD [facility] Showing future appointments within next [...] recent labs completed in chart? N/A None [facility]Rrgbyo60-47-9278 Miscellaneous Notes* Telephone Encounter - Tea Reno LPN - 06/02/2024 1:41 PM EST Recent Visits Date Type Provider Dept 05/20/24 Office Visit Lynda Rasheed MD [facility] 02/05/24 Office Visit Lynda Rasheed MD [facility] Showing recent visits within past [...] in chart? N/A None documented in this [facility]02-25-2025 NoteMy Chart messaged the patient letting him know he was referred for smoking cessation counseling. Gave contact information, will provide follow up.[facility]02-24-2025 Emergency department Note* Radha Gaytan RN - 05/25/2024 4:02 PM EST Pt was seen standing in his room and closed the curtain. [facility] HospitalYiysdb00-89-1286 Emergency department Note* Radha Gaytan RN - [...] CYST REMOVAL face EGD (HISTORICAL) 07/23/2022 Dr. [facility] [facility] SMALL INTESTINE SURGERY UPPER GASTROINTESTINAL ENDOSCOPY [...] Depression Sister Maria De Jesus Hogan Other ([id number]) Sister Maria De Jesus Hogan agoraphobia Arthritis Sister Maria De Jesus Hogan Cancer Mother Maria De Jesus Hogan colon rectal cancer; dx after age 50 Other (26039) Mother Maria De Jesus Hogan alcoholism Alcohol abuse Mother Maria De Jesus Hogan Stroke Mother Maria De Jesus Hogan Other (23054) Father Maria De Jesus Hogan h/o rheumatic [...] 0 min Stress: Stress Concern Present (05/08/2024) [employer] - Occupational Stress Questionnaire Feeling of Stress : To some extent Social Connections: Socially Isolated (05/08/2024) Social Connection and Isolation Panel [NHANES] Frequency of Communication with Friends and Family: Twice a week Frequency of Social Gatherings with Friends and Family: Never Attends Hinduism Services: Never Active Member of Clubs or [...] Medications - No data to display SCREENINGS [place] Coma Scale Best Eye Response: Spontaneous Best Verbal Response: Oriented Best Motor Response: Follows commands [place] Coma Scale Score: 15 MDM elements: The [...] initial encounter 2. Alcoholic intoxication without complication ([facility]) ([facility]) DISPOSITION Discharge 05/25/2024 04:57:48 PM PATIENT REFERRED TO: Lynda Rasheed MD [address] [place] [address] [place] [address] [id number] As needed DISCHARGE MEDICATIONS: New Prescriptions No [...] Emergency Medicine Provider Goyo Melara MD 05/25/24 [id number] * Evelyn Wick RN - 05/25/2024 3:45 PM EST Patient to room 7 with c/o a fall down steps today, and hitting his head. Patient has been drinkingalcohol today and reports he has drank 3 tall boys today. V/S obtained call light within reach. documented in this [facility]02-24-2025 Emergency department Triage note* Evelyn Wick RN - 05/25/2024 3:45 PM EST Patient to room 7 with c/o a fall down steps today, and hitting his head. Patient has been drinkingalcohol today and reports he has drank 3 tall boys today. V/S obtained call light within reach. [id number] Physician Emergency department Note* Goyo Melara MD [...] CYST REMOVAL face EGD (HISTORICAL) 07/23/2022 Dr. Estrella-[facility] SMALL INTESTINE SURGERY UPPER GASTROINTESTINAL ENDOSCOPY [...] Depression Sister Maria De Jesus Hogan Other ([id number]) Sister Maria De Jesus Hogan agoraphobia Arthritis Sister Maria De Jseus Hogan Cancer Mother Maria De Jesus Hogan colon rectal cancer; dx after age 50 Other (67607) Mother Maria De Jesus Hogan alcoholism Alcohol abuse Mother Maria De Jesus Hogan Stroke Mother Maria De Jesus Hogan Other (66083) Father Maria De Jesus Hogan h/o rheumatic [...] 0 min Stress: Stress Concern Present (05/08/2024) [employer] - Occupational Stress Questionnaire Feeling of Stress : To some extent Social Connections: Socially Isolated (05/08/2024) Social Connection and Isolation Panel [NHANES] Frequency of Communication with Friends and Family: Twice a week Frequency of Social Gatherings with Friends and Family: Never Attends Hinduism Services: Never Active Member of Clubs or [...] Response: Oriented Best Motor Response: Follows commands [place] Coma Scale Score: 15 MDM elements: The [...] initial encounter 2. Alcoholic intoxication without complication ([facility]) ([facility]) DISPOSITION Discharge 05/25/2024 04:57:48 PM PATIENT REFERRED TO: Lynda Rasheed MD [address] [place] [address] [address] [facility] [id number] As needed DISCHARGE MEDICATIONS: New Prescriptions No [...] Medicine Provider Goyo Melara MD 05/25/24 1659 [id number] Telephone encounter Note* Telephone Encounter - Jennifer Medel RN - 05/23/2024 2:49 PM EST We have been unable to reach your patient to schedule their testing. Test Name: TTE 2nd attempt, my chart message, TE to office, cancel request on 05/20/24. JS 1st attempt LVM on 08.10.23 SDS [id number] Miscellaneous Notes* Telephone Encounter - Jennifer Medel RN - 05/23/2024 2:49 PM EST We have been unable to reach your patient to schedule their testing. Test Name: TTE 2nd attempt, my chart message, TE to office, cancel request on 05/20/24. JS 1st attempt LVM on 5..23 SDS documented in this [facility]02-20-2025 NoteReferral received for ED, frequency. Reached out to pt, no answer. [facility]02-20-2025 Telephone encounter Note* Telephone Encounter - Rosalee Barrientos - 05/21/2024 9:56 AM EST Referral received for ED, frequency. Reached out to pt, no answer. [facility] [id number] Miscellaneous Notes* Telephone Encounter - Rosalee Barrientos - 05/21/2024 9:56 AM EST Referral received for ED, frequency. Reached out to pt, no answer. [employer]MTCO documented in this [facility]02-19-2025 History of Present illness Narrative* Lynda Rasheed MD - 05/20/2024 1:00 PM EST Transition of Care Note HPI @PATIENTNAME@ presents for xudu-ck-sjwx visit @TODAYSDATE@ for follow up fromhospitalization for alochol withdrawal symptoms elevated liver enzymes.. Initial discharge date: 05/10/24. Interim history: Is a 58-year-old male with a past medical history of alcohol use disorder peripheral neuropathy on gabapentin fatty liver that was admitted for alcohol withdrawal to the hospital. He had been admittedprior to further alcohol withdrawal as well. Per records from curriculum specialist physician he wasdetoxed but did not [...] show lung nodules. We discussed seeing a manager perioperative. He has not beencoughing up any blood. [...] intoxication without complication (CMS/HCC) (HCC) 04/10/2024 Alcoholism ([facility]HCC) (HCC) Anxiety Arthritis Maria De Jesus Cerebral [...] 0 min Stress: Stress Concern Present (05/08/2024) [employer] - Occupational Stress Questionnaire Feeling of Stress : To some extent Social Connections: Socially Isolated (05/08/2024) Social Connection and Isolation Panel [NHANES] Frequency of Communication with Friends and Family: Twice a week Frequency of Social Gatherings with Friends and Family: Never Attends Hinduism Services: Never Active Member of Clubs or [...] differential; Future - CBC auto differential - [facility]; Future Screening for colon cancer - Cancel: [facility]; Future - [facility]; Future Elevated LFTs - Cancel: [facility]; Future - US abdomen complete; Future - [facility]; Future ED (erectile dysfunction) of non-organic origin - Urinalysis with reflex microscopic (clean catch); Future - Urine culture (clean catch); Future - [facility]; Future - Urinalysis with reflex microscopic (clean catch) - Urine culture (clean catch) Urinary frequency - Urinalysis with reflex microscopic (clean catch); Future - Urine culture (clean catch); Future - [facility]; Future - Urinalysis with reflex microscopic (clean catch) - Urine culture (clean catch) Pulmonary nodule - [facility]; Future Lombardo esophagus with esophagitis - [facility]; Future Diagnostic Tests performed in hospital: [...] Moderate Complexity: seen within 7-14 business days (22589) [] Severe Complexity: seen within 7 business days (62655) documented in this [facility]02-13-2025 History of Present illness Narrative* PABLO Paul - 05/14/2024 1:30 PM EST Missed Session Unexcused Pt did not call or show for Scheduled Assessment on this date. documented in this [facility]02-09-2025 Nurse Note* Stephanie Schmitt RN - 05/10/2024 2:43 PM EST Escorted off unit [id number] Nurse Note* Stephanie Schmitt RN - 05/10/2024 [...] and signed. Discussed red book, meetings. Given sdco papers and discussed. Discussed script and where [...] EST Medication rec. Done with Jace escobedo [facility] at 1200. * Nanette De Santiago RN - 05/08/2024 8:53 AM EST Patient received Nicotine Lozenge PRN as per orders at 0850. * Evelyn Abad RN - 05/08/2024 2:03 AM EST Patient arrived [facility] unit from [facility] by stretcher. Pt's belongings secured by [...] any questions and concerns. documented in this [facility]02-09-2025 Nurse Note* Stephanie Schmitt RN - 05/10/2024 2:27 PM EST Called for ride, on way. Given survey and belongings. to be here in 20. [facility] [id number] Nurse Note* Stephanie Schmitt RN - 05/10/2024 2:03 PM EST Denies si/hi. Discussed risk of using any etoh, street drugs, meds not prescribed or as, discussed increased riskor od or if uses following detox. Discussed discharge, IOP, stated understood and signed. Discussed red book, meetings. Given sdoh papers and discussed. Discussed script and where sent. Discussed risk etoh with naltrexone. [facility] [id number] Nurse Note* Stephanie Schmitt RN - 05/10/2024 2:02 PM EST Asking to be discharged, stated needs to go home today. States will call [facility] himself. Discussed with Dr Thrasher, and he will discharge. [facility] [id number] [facility]02-09-2025 Nurse Note* Stephanie Schmitt RN - 05/10/2024 9:52 AM EST Discussed this morning meetings, what his plans are for super bowl, IOP. 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 States he and plan on doing more together for health, walks etc. Discussed leisure activity. [facility] [id number] Plan of care note* Care Plan - Stephanie Schmitt RN - 05/09/2024 6:27 PM EST Discussed coffee intake, states that he believes tremors are caused by the coffee. Discussed switching to water and gingerale. Also discussed the coffee may be affecting his heart rate. Up and social. Often walking the halls. Attended meetings. Appetite good. [facility] HospitalArtnvi60-57-0675 Miscellaneous Notes* Care Plan - Stephanie Schmitt [...] as an adult. Patient denies any history [place] or status. Family Constellation/Childhood History: Patient reports that he is currently to his living in [facility]. Patient reports that he has 3 biological children and 4 stepchildren. Patient reports that his father in his 11 years old. Patient did not report his mother is stillalive currently. Patient was born and raised in [place], [place] by his mother and father. 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 Patient denies SSI/SSD. Cultural/Spirituality/Leisure: Patient denies any cultural needs or concerns at the current time. Patient denies identify any hinduism preference. It is unknown if patient is [...] providers but denies any current treatment. Plan: TABLE FILLER patient will continue work together to establish appropriate aftercare plans based on patient sobriety, needs, resources available in the local community. Patient encouraged to engage in all activities that are offered to them while they are on the unit.Patient report needing additional current time. Patient encouraged to seek out TABLE FILLER unit staff should they identify any additional [...] 05/07/2024 6:38 PM EST Emergency Department Encounter [facility] ED Patient: Maria De Jesus Hogan [...] Johnny Hamilton DO 05/07/242305 documented in this [facility]02-08-2025 History of Present illness Narrative* Arturo Parry, DESK CLERK - 05/09/2024 9:18 AM EST Images from the original note were not included. [facility] Smoking Cessation Progress Note Smoking Cessation Intervention [...] cessation counseling another time. documented in this [facility]02-08-2025 Nurse Note* Evelyn Abad RN - 05/09/2024 12:07 AM EST Patient is up and steady, withdrawn to room for majority of shift. Pt is cooperative and med compliant. Pt denies SI/HI/AVH. Pt encouraged to notify staff for any questions and concerns. [facility] [id number] Nurse Note* Nanette De Santiago RN - [...] Patient denies S.I.,H.I.,AH/VH/TH. Continue to monitor patient. [facility] HospitalFutvid55-37-1537 History and physical note* Jonatan Mckeon MD - 05/08/2024 1:01 PM EST Images from the original note were not included. ADDICTION MEDICINE DETOX UNIT H&P Patient: Maria De Jesus Hogan Admit Date: 05/07/2024 Primary Care Physician: Lynda Rasheed MD __ HISTORY OF PRESENT ILLNESS Chief Complaint Patient presents with Alcohol Problem Patient presents for detox from alcohol. 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 Maria [...] I just want to get better Per TABLE FILLER assessment: Patient first drank alcohol when he [...] CYST REMOVAL face EGD (HISTORICAL) 07/23/2022 Dr. Estrella-[facility] SMALL INTESTINE SURGERY UPPER GASTROINTESTINAL ENDOSCOPY 09/27/2021 normal WISDOM TOOTH EXTRACTION Family History Family History Problem Relation Name Age of Onset Depression Sister Maria De Jesus Hogan Other (55090) Sister Maria De Jesus Hogan agoraphobia Arthritis Sister Maria De Jesus Hogan Cancer Mother Maria De Jesus Hogan colon rectal cancer; dx after age 50 Other (44757) Mother Maria De Jesus Hogan alcoholism Alcohol abuse Mother Maria De Jesus Hogan Stroke Mother Maria De Jesus Hogan Other (34402) Father Maria De Jesus Hogna h/o rheumatic fever, cardiac arrest due to bee sting Hypertension Father Maria De Jesus Hogan [employer] [employer] [place] Tobacco Use: High Risk (05/07/2024) Patient History [...] 0 min Stress: Stress Concern Present (05/08/2024) [employer] - Occupational Stress Questionnaire Feeling of Stress : To some extent Social Connections: Socially Isolated (05/08/2024) Social Connection and Isolation Panel [NHANES] Frequency of Communication with Friends and Family: Twice a week Frequency of Social Gatherings with Friends and Family: Never Attends Hinduism Services: Never Active Member of Clubs or [...] Last Year: No Utilities: At Risk (05/08/2024) [facility] Utilities Threatened with loss of utilities: Yes [...] clinical information on the day of visit. [facility] [id number] [facility]02-07-2025 History and physical note* Jnoatan Mckeon MD - 05/08/2024 1:01 PM EST Images from the original note were not included. ADDICTION MEDICINE 4E DETOX UNIT H&P Patient: Maria De Jesus Hogan Admit Date: 05/07/2024 Primary Care Physician: Lynda Rasheed MD __ HISTORY OF PRESENT ILLNESS Chief Complaint Patient presents with Alcohol Problem Patient presents for detox from alcohol. 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 Maria [...] I just want to get better Per TABLE FILLER assessment: Patient first drank alcohol when he [...] [facility] but [...] CYST REMOVAL face EGD (HISTORICAL) 07/23/2022 Dr. Estrella-[facility] SMALL INTESTINE SURGERY UPPER GASTROINTESTINAL ENDOSCOPY 09/27/2021 normal WISDOM TOOTH EXTRACTION Family History Family History Problem Relation Name Age of Onset Depression Sister Maria De Jesus Hogan Other (59611) Sister Maria De Jesus Hogan agoraphobia Arthritis Sister Maria De Jesus Hogan Cancer Mother Maria De Jesus Hogan colon rectal cancer; dx after age 50 Other (39173) Mother Maria De Jesus Hogan alcoholism Alcohol abuse Mother Maria De Jesus Hogan Stroke Mother Maria De Jesus Hogan Other (22916) Father Maria De Jesus Hogan h/o rheumatic fever, cardiac arrest due to bee sting Hypertension Father Maria De Jesus Hogan [employer] Tobacco Use: High Risk (05/07/2024) Patient History [...] 0 min Stress: Stress Concern Present (05/08/2024) [employer] - Occupational Stress Questionnaire Feeling of Stress : To some extent Social Connections: Socially Isolated (05/08/2024) Social Connection and Isolation Panel [NHANES] Frequency of Communication with Friends and Family: Twice a week Frequency of Social Gatherings with Friends and Family: Never Attends Hinduism Services: Never Active Member of Clubs or [...] Last Year: No Utilities: At Risk (05/08/2024) [facility] Utilities Threatened with loss of utilities: Yes [...] the day of visit. documented in this [facility]02-07-2025 NotePatient sleeping comfortably, will attempt smoking cessation counseling another time.[facility] Nurse Note* Nanette De Santiago RN - 05/08/2024 12:05 PM EST Medication rec. Done with Jace escobedo [facility] at 1200. [facility] HospitalUvcpsb98-86-7771 Nurse Note* Nanette De Santiago RN - 05/08/2024 8:53 AM EST Patient received Nicotine Lozenge PRN as per orders at 0850. [facility] [id number] Hospital Discharge instructions* Discharge Instr - Other [...] National Suicide Prevention Hotline if needed at: 7-922-067-WTWG (9185) Please call the following number should you have questions regarding your discharge or aftercare appointments: [facility] documented in this [facility]02-07-2025 Note* Care Coordination - JEREMY Solis - [...] as an adult. Patient denies any history [place] or status. Family Constellation/Childhood History: Patient reports that he is currently to his living in [facility]. Patient reports that he has 3 biological children and 4 stepchildren. Patient reports that his father in his 9 years old. Patient did not report his mother is stillalive currently. Patient was born and raised in [place], [place] by his mother and father. 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 Patient denies SSI/SSD. Cultural/Spirituality/Leisure: Patient denies any cultural needs or concerns at the current time. Patient denies identify any hinduism preference. It is unknown if patient is [...] providers but denies any current treatment. Plan: TABLE FILLER patient will continue work together to establish appropriate aftercare plans based on patient sobriety, needs, resources available in the local community. Patient encouraged to engage in all activities that are offered to them while they are on the unit.Patient report needing additional current time. Patient encouraged to seek out TABLE FILLER unit staff should they identify any additional [...] to contact the dictating provider for clarification. [facility] HospitalGkbihr26-13-7530 Note* Care Coordination - JEREMY Solis - [...] as an adult. Patient denies any history [place] or status. Family Constellation/Childhood History: Patient reports that he is currently to his living in [facility]. Patient reports that he has 3 biological children and 4 stepchildren. Patient reports that his father in his 11 years old. Patient did not report his mother is stillalive currently. Patient was born and raised in [place], [place] by his mother and father. 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 Patient denies SSI/SSD. Cultural/Spirituality/Leisure: Patient denies any cultural needs or concerns at the current time. Patient denies identify any hinduism preference. It is unknown if patient is [...] providers but denies any current treatment. Plan: TABLE FILLER patient will continue work together to establish appropriate aftercare plans based on patient sobriety, needs, resources available in the local community. Patient encouraged to engage in all activities that are offered to them while they are on the unit.Patient report needing additional current time. Patient encouraged to seek out TABLE FILLER unit staff should they identify any additional [...] to contact the dictating provider for clarification. [facility] [id number] Nurse Note* Evelyn Abad RN - 05/08/2024 2:03 AM EST Patient arrived on unit from [facility] by stretcher. Pt's belongings secured by [...] notify staff for any questions and concerns. [facility] [id number] Emergency department Note* Kirsty Hawley RN - 05/08/2024 1:08 AM EST Report to Evelyn THOMPSON at [facility] on 4E [facility] [id number] Emergency department Note* Kirsty Hawley RN - 05/08/2024 1:08 AM EST Report to Evelyn THOMPSON at [facility] on 4E * Papito Ruiz RN - [...] treatment: 12-Step: Alcohol Anonymous: [facility] Brennon Anon: [phone]: 12-step program for families & friends of people with addiction. CRISIS: Homeless Hotline: 628.994.6745 [facility] 22/10 line-22/10 OFFICE: [phone] [facility]: [address] [place] [address] [phone] (24 Hours) Domestic Violence help line anytime: 729.277.9417 Crisis Hotline: 22/10- 469.612.9804 [facility] Addiction Helpline: 111.394.8587 (available 8:30 AM to 4:00 PM ) 2-1-1 2-1-1 helps people across [facility] find local resources when they don't know where to turn forhelp. We are available 24 hours a day, 7 days a week. For help, simply dial -- to speak to one of our trained professionals. DETOX TREATMENT: [place], [place] [phone] /[facility] Crisis Center: anytime @ 839.221.3364 for alcohol & drug addiction help. [facility], [place] [phone] [facility] [place]: [phone] [place], [place], [place]: [phone], [place], [place]: [phone] [facility] [place] [phone] Adolescent detox [place], [place] [phone] [facility] [place], [place]: [phone] [facility], [place], [place] [phone] ext. [phone] Nick[facility]ell [facility], [place], [place] BH & detox & Sober living [phone] [place], [place] (pt. must be medically cleared prior to admission in ED) [facility], [place] [phone] OUTPATIENT TREATMENT: [facility] Addiction [facility] @ [place] [phone]. Intensive Outpatient Programs- [facility] [place], [place] [phone] [place], [place] [phone] [facility] [place], [place] [phone] [facility]: [place], [place] [phone] or [phone]. [facility]: [phone] [facility], [place]: [phone], [facility]: [phone] [facility] [place]: [phone] [facility], [place], [place]: [phone] [facility], [place]: [phone], [facility]: [phone] Yohan Dominguez. [place]: [phone] [facility] [place], [place] BH & Sober living [phone] [place], [place] [phone] Behavioral Health Services: [facility]: [phone], [facility] [phone], [place]- [phone] [facility], [place]: [phone], [place]: [phone] [facility], [place], [place] [phone] [facility], [place], [place] [phone] [facility], [place], [place] [phone], inpt, services, dual dx. Tx. with detox. [facility] SERVICES: [place], [place] [phone] [facility], [place], [place] [phone] [facility] [phone] [facility] SERVICES: [employer] (180): [place], [place] [phone] [facility] [place] SHEETS & Jayy: [phone] RESIDENTIAL TREATMENT FACILITIES: [facility]: inpt. Or outpt. - [phone] [facility], [place], [place] [phone] [place], [place] [phone] Community Assessment & Treatment Services (CATS) @ [facility] [phone] [facility] tx., [place], [place] [phone] (admission coordinated by ADM Gurvinder Landers ext [phone]) [facility] Tx., [place], [place]: [phone]; Men's services inpt. & women services -Outpt. [place], [place] [phone] [facility], [place], [place] [phone] [facility] [place], [place] [phone] [facility], [place], [place] [phone] [facility], [place], [place] [phone] [facility] - [place], [place] [phone] [facility], [place], [place] [phone] [place], [place] [phone] [facility], [facility] & detox & Sober living [phone] OTHER SERVICES: [email or web address] - [employer] Operator Service: [phone] [facility]: [phone] ext. [phone] Medicaid Health Coverage: [place] [employer] [facility]: [phone] * Kirsty Hawley RN - 05/07/2024 8:20 [...] alcohol. 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 HISTORY [...] CYST REMOVAL face EGD (HISTORICAL) 07/23/2022 Dr. Estrella-[facility] SMALL INTESTINE SURGERY UPPER GASTROINTESTINAL ENDOSCOPY [...] Depression Sister Maria De Jesus Hogan Other ([id number]) Sister Maria De Jesus Hogan agoraphobia Arthritis Sister Maria De Jesus Hogan Cancer Mother Maria De Jesus Hogan colon rectal cancer; dx after age 50 Other ([id number]) Mother Maria eD Jesus Hogan alcoholism Alcohol abuse Mother Maria De Jesus Hogan Stroke Mother Maria De Jesus Hogan Other ([id number]) Father Maria De Jesus Hogan h/o rheumatic [...] min Stress: No Stress Concern Present (01/20/2024) [employer] - Occupational Stress Questionnaire Feeling of Stress : Not at all Social Connections: Unknown (01/28/2024) Social Connection and Isolation Panel [NHANES] Frequency of Communication with Friends and Family: Twice a week Frequency of Social Gatherings with Friends and Family: Patient unable to answer Attends Hinduism Services: Never Active Member of Clubs or Organizations: No Attends Club or Organization Meetings: Never Marital Status: Recent Concern: Social Connections - Socially Isolated (01/20/2024) Social Connection and Isolation Panel [NHANES] Frequency of Communication with Friends and Family: Never Frequency of Social Gatherings with Friends and Family: Never Attends Hinduism Services: Never Active Member of Clubs or [...] 05/07/2024 11:06 PM EST documented in this [facility]02-07-2025 Emergency department Note* Papito Ruiz RN - 05/08/2024 12:50 AM EST Report to [facility] at bedside. Vitals taken. Protective at bedside for final wanding. Belongings, detox rules and paperwork sent with patient/EMS [id number] Emergency department Note* Kirsty Hawley RN - 05/07/2024 10:35 PM EST Security at bedside for a belongings check [address]06-2025 Emergency department Note* Catalino Quintero RN - 05/07/2024 9:11 PM EST The following are the next steps in your Substance use Treatment Plan: Below are additional resources that you may find beneficial in your treatment: 12-Step: Alcohol Anonymous: akronaa.org Brennon Anon: [phone]: 12-step program for families & friends of people with addiction. CRISIS: Homeless Hotline: 994.607.7631 [facility] [place] [facility] 24/7 line-22/10 OFFICE: [phone] [facility]: [address] [facility], [place] [address] [phone] (24 Hours) Domestic Violence help line anytime: [phone] Crisis Hotline: 22/10- 866.487.2469 [facility] Addiction Helpline: 938.522.6482 (available 8:30 AM to 4:00 PM ) 2--1 2-1-1 helps people across [facility] find local resources when they don't know where to turn forhelp. We are available 24 hours a day, 7 days a week. For help, simply dial to speak to one of our trained professionals. DETOX TREATMENT: Sandra Garcia Trey [facility], [place], [place] [phone] /[facility] Crisis Center: anytime @ [phone] for alcohol & drug addiction help. [facility], [place], [place] [phone] [facility] [place]: [phone] [place], [place]: [phone], [facility] [place]: [phone] [place], [place] [phone] Adolescent detox [place], [place] [phone] [facility] [place]: [phone] [facility], [place], [place] [phone] ext. [phone] [facility], [facility] & detox & Sober living [phone] [place], [place] (pt. must be medically cleared prior to admission in ED) [facility], [place] [phone] OUTPATIENT TREATMENT: [facility] @ [place] C[place] [phone]. Intensive Outpatient Programs- [facility] [place], [place] [phone] [place], [place] [phone] [facility] [place], [place] [phone] [facility]: [place] [phone] or [phone]. [facility]: [phone] [facility], [place]: [phone], [place]: [phone] [facility], [place], [place]: [phone] [facility], [place], [place]: [phone] [facility], [place]: [phone], [place]: [phone] Yohan Dominguez. [place]: [phone] [facility], [facility] & Sober living [phone] [facility], [place], [place] [phone] Behavioral Health Services: [facility] Services: [phone], [place]/Tfnjxj-[phone], [place]- [phone] [facility], [place]: [phone], [place]: [phone] [facility], [place], [place] [phone] [facility], [place], [place] [phone] [facility], [place], [place] [phone], mady services, dual dx. Tx. with detox. [facility] SERVICES: [place], [place] [phone] [place], [place] [phone] [facility] [phone] [facility] SERVICES: [employer] (180): [place] [phone] [place] SHEETS & [place]: [phone] RESIDENTIAL TREATMENT FACILITIES: [facility]: inpt. Or outpt. - [phone] [facility], [place], [place] [phone] [facility], [place], [place] [phone] Community Assessment & Treatment Services (CATS) @ [facility] [phone] [facility] tx., [place] [phone] (admission coordinated by ADM Gurvinder Landers ext [phone]) [facility] [place], [place]: [phone]; Men's services inpt. & women services -Outpt. [facility], [place], [place] [phone] [facility], [place] [phone] [facility], [place], [place] [phone] [facility], [place] [phone] [facility], [place] [phone] [facility] - [place] [phone] [facility], [place] [phone] [place] [phone] [facility], [facility] & detox & Sober living [phone] OTHER SERVICES: [email or web address] - [employer] Operator Service: [phone] [facility]: [phone] ext. [phone] Medicaid Health Coverage: [employer] JFS: [phone] [facility]67 Emergency department Note* Kirsty Hawley RN - 05/07/2024 8:[address] Hamilton at bedside speaking with pt. [facility]kvds[facility]75-51-4001 Note* ED Attestation Note - Johnny Hamilton DO - 05/07/2024 6:38 PM EST Emergency Department Encounter [facility] ED Patient: Maria De Jesus Hogan [...] [facility] Johnny Hamilton DO 05/07/24 2306 [employer] Phone: 1(733) 873-784702-06-2025 Note* ED Attestation Note - Johnny Hamilton DO - 05/07/2024 6:38 PM EST Emergency Department Encounter [facility] ED Patient: Maria De Jesus Hogan [...] [facility] [employer] Johnny Hamilton DO 05/07/24 2306 [employer] Phone: 1(942) 938-508702-06-2025 Physician Emergency department Note* Shelly TriciaJUAN emerson CNP - 05/07/2024 6:38 PM EST EMERGENCY DEPARTMENT ENCOUNTER Pt Name: Maria De Jesus Hogan Birthdate 1965 Date of evaluation: 05/07/2024 ED Provider: JUAN Lang CNP This patient was seen in conjunction with Dr. Hamilton CHIEF COMPLAINT Chief Complaint Patient presents with Alcohol Problem Patient presents for detox from alcohol. 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 HISTORY [...] CYST REMOVAL face EGD (HISTORICAL) 07/23/2022 Dr. Estrella-[facility] SMALL INTESTINE SURGERY UPPER GASTROINTESTINAL ENDOSCOPY [...] Depression Sister Maria De Jesus Hogan Other ([id number]) Sister Maria De Jesus Hogan agoraphobia Arthritis Sister Maria De Jesus Hogan Cancer Mother Maria De Jesus Hogan colon rectal cancer; dx after age 50 Other ([id number]) Mother Maria De Jesus Hogan alcoholism Alcohol abuse Mother Maria De Jesus Hogan Stroke Mother Maria De Jesus Hogan Other ([id number]) Father Maria De Jesus Hogan h/o rheumatic [...] min Stress: No Stress Concern Present (01/20/2024) [employer] - Occupational Stress Questionnaire Feeling of Stress : Not at all Social Connections: Unknown (01/28/2024) Social Connection and Isolation Panel [NHANES] Frequency of Communication with Friends and Family: Twice a week Frequency of Social Gatherings with Friends and Family: Patient unable to answer Attends Hinduism Services: Never Active Member of Clubs or Organizations: No Attends Club or Organization Meetings: Never Marital Status: Recent Concern: Social Connections - Socially Isolated (01/20/2024) Social Connection and Isolation Panel [NHANES] Frequency of Communication with Friends and Family: Never Frequency of Social Gatherings with Friends and Family: Never Attends Hinduism Services: Never Active Member of Clubs or [...] Hamilton DO at 05/07/2024 11:[address] [facility] Work Phone: 1(355) 770-784501-21-2025 NoteLVM letting the patient know they were referred for smoking cessation counseling. Gave contact information, will provide follow up. Letter & education mailed to the home address.[facility]01-12-2025 [facility]01-12-2025 Plan of care note* Care Plan - Ceci Sandy RN - 04/12/2024 8:49 AM EST Problem: Pain - Adult Goal: Verbalizes/displays adequate comfort level or baseline comfort level Outcome: Completed Problem: Safety - Adult Goal: Free from fall injury Outcome: Completed Problem: Problem Interventions Goal: Assess Nutritional Intake Outcome: Completed 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 Last 4 CIwA scores per RN assessments [...] of ETOH was on the way to [facility] ED. Phenobarbital taper to manage ETOH [...] IM and ADM Labs/tests/tasks to review: N/A Case Filler to coordinate care with: N/A. A total [...] loss Fluid Accumulation: No significant fluid accumulation Community Health Specialist Strength: Not Performed Nutrition Assessment: 58 y.o. [...] On: Kcal/kg Weight Used for Energy Requirements: [place] Weight for Energy Calculation (kg): 78 kg Total Energy Requirements (kcals/day): 6484-1329 (25-30) Weight Used for Protein Requirements: [place] Weight in Kg Used for Protein Requirements: [...] (235 lb) % Weight Change (Calculated): -4.3 [place] Body Weight (lbs) (Calculated): 172 lbs [place] Body Weight (Kg) (Calculated): 78 kg % [place] Body Weight (Calculated): 130.8 % BMI (kg/m2) [...] Weight Discharge Planning: Nanette Munson RD Contact: *[phone] or via Secure Chat * Redd Teixeira MD - 04/11/2024 2:22 PM EST Hospitalist Progress Note 04/11/2024 [phone]: Please page me ([phone]) for patient care issues. [phone]: Please page [facility] night Hospitalist for any issues. Subjective: Admit Date: 04/09/2024 PCP: Lynda Rasheed MD Room#: [id number] A Interval History: Patient is sleeping comfortably, no signs of distress noticed No other significant overnight issues. Adult diet Regular; Low Sodium (2 gm) @QTRQ2TZLFOA@ 24HR INTAKE/OUTPUT: Intake/Output Summary (Last 24 hours) [...] MD Division of Hospitalist Medicine Inpatient Medical Services/[facility]: [phone] * Luis Branch MD - 04/11/2024 7:16 AM EST Images from the original note were not included. ADDICTION MEDICINE PROGRESS NOTE Patient: Maria De Jesus Hogan __ Problem List: Principal Problem: Alcoholic intoxication without complication (CMS/HCC) (HCC) SUBJECTIVE Chief Complaint Patient presents with Alcohol Problem Patient seeking detox from ETOH. 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 Last 4 CIWA scores per RN assessments [...] of ETOH was on the way to [facility] ED. Phenobarbital taper to manage ETOH [...] ADM Labs/tests/tasks to review: Lytes and LFTs. Case Filler to coordinate care with: N/A. A total of 35 minutes were spent reviewing the patient's records, evaluating the patient, entering orders, coordinating care with the treatment team, and creating this note. documented in this [facility]01-12-2025 NotePt educated about his [facility] Plan of care note* Care Plan - Rita Adan RN - 04/12/2024 3:04 AM EST Pt educated about his plan of care [id number] Plan of care note* Care Plan - Ceci Sandy RN - 04/11/2024 6:08 PM EST Problem: Pain - Adult Goal: Verbalizes/displays adequate comfort level or baseline comfort level Outcome: Progressing Problem: Safety - Adult Goal: Free from fall injury Outcome: Progressing Problem: Problem Interventions Goal: Assess Nutritional Intake Outcome: Progressing [facility] HospitalLdlone78-83-9106 Plan of care note* Care Plan - Esteban Ocampo RN - 04/11/2024 4:56 AM EST Problem: Pain - Adult Goal: Verbalizes/displays adequate comfort level or baseline comfort level Outcome: Progressing Flowsheets (Taken 04/11/2024 1682) Verbalizes/displays adequate comfort level or baseline comfort level: Encourage patient to monitor pain and request assistance Assess pain using appropriate pain scale Problem: Safety - Adult Goal: Free from fall injury Outcome: Progressing [facility] HospitalUvtlsk09-62-4917 Nurse Note* Kody Keen RN - 04/10/2024 9:43 AM EST Pt refusing to let RN put side rail of ED stretcher up. Pt educated on seizure precautions and dangers with withdrawls. Pt still refusing. Will continue to monitor. [facility] HospitalBaoeby66-63-0202 Nurse Note* Kody Keen RN - 04/10/2024 9:43 AM EST Pt refusing to let RN put side rail of ED stretcher up. Pt educated on seizure precautions and dangers with withdrawls. Pt still refusing. Will continue to monitor. 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 The Pt, Mr. Hogan, is a 58 y/o M with a PMHx of Severe AUD, TUD, BPH and Lombardo's esophagus who presented to [facility] on (04/09/24) requesting chemical detox. ADM [...] but Pt cannot recall where. Detoxifications: x1 [employer] (per Pt). 12 Step Meetings: Has attended [...] CYST REMOVAL face EGD (HISTORICAL) 07/23/2022 Dr. Estrella-[facility] SMALL INTESTINE SURGERY UPPER GASTROINTESTINAL ENDOSCOPY 09/27/2021 normal WISDOM TOOTH EXTRACTION Family History Family History Problem Relation Name Age of Onset Depression Sister Maria De Jesus Hogan Other (07331) Sister Maria De Jesus Hogan agoraphobia Arthritis Sister Maria De Jesus Hogan Cancer Mother Maria De Jesus Hgoan colon rectal cancer; dx after age 50 Other (00211) Mother Maria De Jesus Hogan alcoholism Alcohol abuse Mother Maria De Jesus Hogan Stroke Mother Maria De Jesus Hogan Other (92274) Father Maria De Jesus Hogan h/o rheumatic [...] min Stress: No Stress Concern Present (01/20/2024) [employer] - Occupational Stress Questionnaire Feeling of Stress : Not at all Social Connections: Unknown (01/28/2024) Social Connection and Isolation Panel [NHANES] Frequency of Communication with Friends and Family: Twice a week Frequency of Social Gatherings with Friends and Family: Patient unable to answer Attends Hinduism Services: Never Active Member of Clubs or Organizations: No Attends Club or Organization Meetings: Never Marital Status: Recent Concern: Social Connections - Socially Isolated (01/20/2024) Social Connection and Isolation Panel [NHANES] Frequency of Communication with Friends and Family: Never Frequency of Social Gatherings with Friends and Family: Never Attends Hinduism Services: Never Active Member of Clubs or [...] Year: No Utilities: Not At Risk (01/20/2024) [facility] Utilities Threatened with loss of utilities: No [...] 409 ms QTC Interval 493 ms P [place] 65 degrees QRS [place] 59 degrees T Wave [place] 44 degrees [place] Interval 162 ms CBC auto differential Collection [...] of ETOH was on the way to [facility] ED. Phenobarbital taper to manage ETOH [...] stabilization. Labs/tests/tasks to review: Lytes and LFTs. Case Filler to coordinate care with: N/A. A total of 90 minutes were spent reviewing the patient's records, evaluating the patient, entering orders, coordinating care with the treatment team, and creating this note. 30 minutes reviewing prior records. 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 The Pt, Mr. Hogan, is a 58 y/o M with a PMHx of Severe AUD, TUD, BPH and Lombardo's esophagus who presented to [facility] on (04/09/24) requesting chemical detox. ADM [...] but Pt cannot recall where. Detoxifications: x1 [employer] (per Pt). 12 Step Meetings: Has attended [...] CYST REMOVAL face EGD (HISTORICAL) 07/23/2022 Dr. Estrella-[facility] SMALL INTESTINE SURGERY UPPER GASTROINTESTINAL ENDOSCOPY 09/27/2021 normal WISDOM TOOTH EXTRACTION Family History Family History Problem Relation Name Age of Onset Depression Sister Maria De Jesus Hogan Other ([id number]) Sister Maria De Jesus Hogan agoraphobia Arthritis Sister Maria De Jesus Hogan Cancer Mother Maria De Jesus Hogan colon rectal cancer; dx after age 50 Other ([id number]) Mother Maria De Jesus Hogan alcoholism Alcohol abuse Mother Maria De Jesus Hogan Stroke Mother Maria De Jesus Hogan Other (78668) Father Maria De Jesus Hogan h/o rheumatic fever, cardiac arrest due to bee sting Hypertension Father Maria De Jesus Hogan [place] [employer] [place] Tobacco Use: High Risk (04/09/2024) Patient History [...] min Stress: No Stress Concern Present (01/20/2024) [employer] - Occupational Stress Questionnaire Feeling of Stress : Not at all Social Connections: Unknown (01/28/2024) Social Connection and Isolation Panel [NHANES] Frequency of Communication with Friends and Family: Twice a week Frequency of Social Gatherings with Friends and Family: Patient unable to answer Attends Hinduism Services: Never Active Member of Clubs or Organizations: No Attends Club or Organization Meetings: Never Marital Status: Recent Concern: Social Connections - Socially Isolated (01/20/2024) Social Connection and Isolation Panel [NHANES] Frequency of Communication with Friends and Family: Never Frequency of Social Gatherings with Friends and Family: Never Attends Hinduism Services: Never Active Member of Clubs or [...] Year: No Utilities: Not At Risk (01/20/2024) [facility] Utilities Threatened with loss of utilities: No [...] 409 ms QTC Interval 493 ms P [place] 65 degrees QRS [place] 59 degrees T Wave [place] 44 degrees [place] Interval 162 ms CBC auto differential Collection [...] of ETOH was on the way to [facility] ED. Phenobarbital taper to manage ETOH [...] stabilization. Labs/tests/tasks to review: Lytes and LFTs. Case Filler to coordinate care with: N/A. A total of 90 minutes were spent reviewing the patient's records, evaluating the patient, entering orders, coordinating care with the treatment team, and creating this note. 30 minutes reviewing prior records. documented in this [facility]01-10-2025 Emergency department Note* Mercedes Kebede RN - 04/10/2024 6:57 AM EST Pt sleeping 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 HISTORY OF PRESENT ILLNESS (Location/Symptom, Timing/Onset, Context/Setting, [...] CYST REMOVAL face EGD (HISTORICAL) 07/23/2022 Dr. Estrella-[facility] SMALL INTESTINE SURGERY UPPER GASTROINTESTINAL ENDOSCOPY [...] Depression Sister Maria De Jesus Hogan Other ([id number]) Sister Maria De Jesus Hogan agoraphobia Arthritis Sister Maria De Jesus Hogan Cancer Mother Maria De Jesus Hogan colon rectal cancer; dx after age 50 Other (57130) Mother Maria De Jesus Hogan alcoholism Alcohol abuse Mother Maria De Jesus Hogan Stroke Mother Maria De Jesus Hogan Other (07964) Father Maria De Jesus Hogan h/o rheumatic [...] min Stress: No Stress Concern Present (01/20/2024) [employer] - Occupational Stress Questionnaire Feeling of Stress : Not at all Social Connections: Unknown (01/28/2024) Social Connection and Isolation Panel [NHANES] Frequency of Communication with Friends and Family: Twice a week Frequency of Social Gatherings with Friends and Family: Patient unable to answer Attends Hinduism Services: Never Active Member of Clubs or Organizations: No Attends Club or Organization Meetings: Never Marital Status: Recent Concern: Social Connections - Socially Isolated (01/20/2024) Social Connection and Isolation Panel [NHANES] Frequency of Communication with Friends and Family: Never Frequency of Social Gatherings with Friends and Family: Never Attends Hinduism Services: Never Active Member of Clubs or [...] Abnormal ETHANOL IN SER/PLAS 334 (*) Narrative: CRUISE COORDINATOR depression is seen >100 mg/dL. NOTE: This [...] Culture. Procedure Abnormality Status --------- ------ Complete Urinalysis[[id number]] Normal Final result Please view results for [...] IMPRESSION 1. Alcoholic intoxication without complication (CMS/HCC) ([facility]) DISPOSITION Admit 04/09/2024 10:55:05 PM PATIENT REFERRED [...] 6:31 PM EST Emergency Department Encounter Location: [facility] ED Patient: Maria De Jesus Hogan [...] 409 ms QTC Interval 493 ms P [place] 65 degrees QRS [place] 59 degrees T Wave [place] 44 degrees [place] Interval 162 ms CBC auto differential Collection [...] 04/09/242044) I Steve Demarco MD am the legal word processor of record. Final Impression 1. 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 documented in this [facility]01-10-2025 Emergency department Note* Mercedes Kebede RN - 04/10/2024 6:01 AM EST Pt sleeping [id number] Emergency department Note* Mercedes Kebede RN - 04/10/2024 3:36 AM EST Pt sleeping [id number] Emergency department Note* Mercedes Kebede RN - 04/10/2024 2:30 AM EST Pt sleeping [facility] HospitalMuzolk06-40-8776 History and physical note* John Matthews MD [...] CYST REMOVAL face EGD (HISTORICAL) 07/23/2022 Dr. Estrella-[facility] SMALL INTESTINE SURGERY UPPER GASTROINTESTINAL ENDOSCOPY [...] min Stress: No Stress Concern Present (01/20/2024) [employer] Occupational Health - Occupational Stress Questionnaire Feeling of Stress : Not at all Social Connections: Unknown (01/28/2024) Social Connection and Isolation Panel [NHANES] Frequency of Communication with Friends and Family: Twice a week Frequency of Social Gatherings with Friends and Family: Patient unable to answer Attends Hinduism Services: Never Active Member of Clubs or Organizations: No Attends Club or Organization Meetings: Never Marital Status: Recent Concern: Social Connections - Socially Isolated (01/20/2024) Social Connection and Isolation Panel [NHANES] Frequency of Communication with Friends and Family: Never Frequency of Social Gatherings with Friends and Family: Never Attends Hinduism Services: Never Active Member of Clubs or [...] Depression Sister Maria De Jesus Hogan Other ([id number]) Sister Maria De Jesus Hogan agoraphobia Arthritis Sister Maria De Jesus Hogan Cancer Mother Maria De Jesus Hogan colon rectal cancer; dx after age 50 Other ([id number]) Mother Maria De Jesus Hogan alcoholism Alcohol abuse Mother Maria De Jesus Hogan Stroke Mother Maria De Jesus Hogan Other ([id number]) Father Maria De Jesus Hogan h/o rheumatic [...] - DO NOT do CPR, intubation] [_] [DNR-LOADER TECHNICIAN - Comfort care only] [_] DNR form [...] John Matthews MD Division of Hospitalist Medicine [facility] [employer] Phone: [phone]) 155-999601-10-2025 [facility]01-10-2025 History and physical note* John Matthews MD [...] CYST REMOVAL face EGD (HISTORICAL) 07/23/2022 Dr. Estrella-[facility] SMALL INTESTINE SURGERY UPPER GASTROINTESTINAL ENDOSCOPY [...] min Stress: No Stress Concern Present (01/20/2024) [employer] Occupational Health - Occupational Stress Questionnaire Feeling of Stress : Not at all Social Connections: Unknown (01/28/2024) Social Connection and Isolation Panel [NHANES] Frequency of Communication with Friends and Family: Twice a week Frequency of Social Gatherings with Friends and Family: Patient unable to answer Attends Hinduism Services: Never Active Member of Clubs or Organizations: No Attends Club or Organization Meetings: Never Marital Status: Recent Concern: Social Connections - Socially Isolated (01/20/2024) Social Connection and Isolation Panel [NHANES] Frequency of Communication with Friends and Family: Never Frequency of Social Gatherings with Friends and Family: Never Attends Hinduism Services: Never Active Member of Clubs or [...] Depression Sister Maria De Jesus Hogan Other ([id number]) Sister Maria De Jesus Hogan agoraphobia Arthritis Sister Maria De Jesus Hogan Cancer Mother Maria De Jesus Hogan colon rectal cancer; dx after age 50 Other ([id number]) Mother Maria De Jesus Hogan alcoholism Alcohol abuse Mother Maria De Jesus Hogan Stroke Mother Maria De Jesus Hogan Other ([id number]) Father Maria De Jesus Hogan h/o rheumatic [...] Extended Emergency Contact Information Primary Emergency Contact: [place],April Mobile Relation: Spouse [employer]ING Maria De Jesus Farr Samira : 1965 Primary Care Physician: Lynda Rasheed MD The patient and/or family/surrogate voluntarily agreed to participate in ACP services. Patient s cognitive capacity: AOx3 Code Status: [_x] [FULL CODE - Continue all advanced life support: CPR,intubation,invasive procedures] [_] [DNR-CCA - DO NOT do CPR, intubation] [_] [DNR-LOADER TECHNICIAN - Comfort care only] [_] DNR form [...] John Matthews MD Division of Hospitalist Medicine [facility] documented in this [facility]01-09-2025 Emergency department Triage note* Karol Reno RN - 04/09/2024 6:31 PM EST Patient seeking detox from ETOH. 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 [id number] Physician Emergency department Note* Kolby Whiteside DO - 04/09/2024 6:31 PM EST EMERGENCY DEPARTMENT ENCOUNTER Pt Name: Maria De Jesus Hogan Birthdate 1965 Date of evaluation: 04/09/2024 ED Provider: Mejgon Z Miesha, DO CHIEF COMPLAINT Chief Complaint Patient presents with Alcohol Problem Patient seeking detox from ETOH. 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 HISTORY OF PRESENT ILLNESS (Location/Symptom, Timing/Onset, Context/Setting, [...] CYST REMOVAL face EGD (HISTORICAL) 07/23/2022 Dr. Estrella-[facility] SMALL INTESTINE SURGERY UPPER GASTROINTESTINAL ENDOSCOPY [...] Depression Sister Maria De Jesus Hogan Other ([id number]) Sister Maria De Jesus Hogan agoraphobia Arthritis Sister Maria De Jesus Hogan Cancer Mother Maria De Jesus Hogan colon rectal cancer; dx after age 50 Other ([id number]) Mother Maria De Jesus Hogan alcoholism Alcohol abuse Mother Maria De Jesus Hogan Stroke Mother Maria De Jesus Hogan Other ([phone]) Father Maria De Jesus Hogan h/o rheumatic [...] min Stress: No Stress Concern Present (01/20/2024) [employer] of Occupational Health - Occupational Stress Questionnaire Feeling of Stress : Not at all Social Connections: Unknown (01/28/2024) Social Connection and Isolation Panel [NHANES] Frequency of Communication with Friends and Family: Twice a week Frequency of Social Gatherings with Friends and Family: Patient unable to answer Attends Hinduism Services: Never Active Member of Clubs or Organizations: No Attends Club or Organization Meetings: Never Marital Status: Recent Concern: Social Connections - Socially Isolated (01/20/2024) Social Connection and Isolation Panel [NHANES] Frequency of Communication with Friends and Family: Never Frequency of Social Gatherings with Friends and Family: Never Attends Hinduism Services: Never Active Member of Clubs or [...] Abnormal ETHANOL IN SER/PLAS 334 (*) Narrative: CRUISE COORDINATOR depression is seen >100 mg/dL. NOTE: This [...] Culture. Procedure Abnormality Status --------- ------ Complete Urinalysis[[id number]] Normal Final result Please view results for [...] IMPRESSION 1. Alcoholic intoxication without complication (CMS/HCC) ([facility]) DISPOSITION Admit 04/09/2024 10:55:05 PM PATIENT REFERRED [...] Emergency Medicine Provider Kolby Whiteside DO 04/09/[address] [facility] [id number] Physician Emergency department Note* Steve Demarco MD - 04/09/2024 6:31 PM EST Emergency Department Encounter Location: [facility] ED Patient: Maria De Jesus Hogan [...] 409 ms QTC Interval 493 ms P [place] 65 degrees QRS [place] 59 degrees T Wave [place] 44 degrees [place] Interval 162 ms CBC auto differential Collection [...] 04/09/242044) I Steve Demarco MD am the legal word processor of record. Final Impression 1. Alcoholic intoxication without complication (CMS/HCC) (HCC) DISPOSITION Admit 04/10/2024 12:06:32 AM (Please note that portions of this note may have been completed with a voice recognition program. Efforts were made to edit the dictations but occasionally words are mis-transcribed.) Steve Demarco MD Acute Care [facility] Steve Demarco MD 04/10/247 [facility] [facility] [id number] NoteMy Chart messaged the patient letting him know he was referred for smoking cessation counseling. Gave contact information, will provide follow up.[facility]12-02-2024 NoteLVM letting the patient know they were referred for smoking cessation counseling. Gave contact information, will provide follow up.[facility]11-29-2024 History of Present illness Narrative* Myra Darden [...] min Stress: No Stress Concern Present (01/20/2024) [employer] of Occupational Health - Occupational Stress Questionnaire Feeling of Stress : Not at all Social Connections: Unknown (01/28/2024) Social Connection and Isolation Panel [NHANES] Frequency of Communication with Friends and Family: Twice a week Frequency of Social Gatherings with Friends and Family: Patient unable to answer Attends Hinduism Services: Never Active Member of Clubs or Organizations: No Attends Club or Organization Meetings: Never Marital Status: Recent Concern: Social Connections - Socially Isolated (01/20/2024) Social Connection and Isolation Panel [NHANES] Frequency of Communication with Friends and Family: Never Frequency of Social Gatherings with Friends and Family: Never Attends Hinduism Services: Never Active Member of Clubs or [...] Depression Sister Maria De Jesus Hogan Other ([id number]) Sister Maria De Jesus Hogan agoraphobia Arthritis Sister Maria De Jesus Hogan Cancer Mother Maria De Jesus Hogan colon rectal cancer; dx after age 50 Other ([id number]) Mother Maria De Jesus Hogan alcoholism Alcohol abuse Mother Maria De Jesus Hogan Stroke Mother Maria De Jesus Hogan Other ([phone]) Father Maria De Jesus Hogan h/o rheumatic [...] cessation - Ambulatory referral to Smoking Cessation Tour Bus Driver 4. Alcohol abuse May complicate adherence to medical plan and also would be a concern if surgery required. Follow-up: 3 months with LENY (prefers [facility]) documented in this [facility] [id number] Instructions* Patient Instructions* Manpreet Patiño MA - 02/28/2024 9:30 AM EST YOUR APPOINTMENT TODAY WAS WITH THE [facility] LUNG NODULE CLINIC, COPD CLINIC, PULMONARY AND SLEEP MEDICINE OFFICE. PLEASE CALL OUR OFFICE AT [phone] IF YOU HAVE NOT RECEIVED YOUR TEST [...] to make improvements. COVID-19 VACCINATION INFORMATION: . [phone] HEALTH.ORG/CORONAVIRUS/VACCINE [facility] Central Scheduling [phone] [facility] Sleep Scheduling [phone] documented in this [facility]11-19-2024 History of Present illness Narrative* Fadia Hartley [...] differ from this recommendation. documented in this [facility]2024 NoteReceived QUILL COLLECTOR referral to [facility]. 1st attempt- VMX1. Will offer pt 12/[address] Barajas in [facility]2024 Telephone encounter Note* Telephone Encounter - Daniela Montserrat - 02/14/2024 1:53 PM EST Received QUILL COLLECTOR referral to [facility]. 1st attempt- VMX1. Will offer pt 12/[address] Barajas in [facility]. [facility] [id number] Miscellaneous Notes* Telephone Encounter - Daniela Mariano - 02/14/2024 1:53 PM EST Received QUILL COLLECTOR referral to [facility]. 1st attempt- VMX1. Will offer pt 03/[address] Barajas in [facility]. * Telephone Encounter - Clarita Coppola LPN - 02/14/2024 8:32 AM EST I was able to speak with patient, I notified him of the results, and provided him with the number to the clinic so he can call to set up an appointment. I also sent information to his [facility] for there referral for him as [...] CT and an expedited referral to the [facility] lung nodule clinic is recommended. If you agree, please notify patient of findings and consider placing lung nodule clinic referral atthis time. Navigators are available to assist with expediting follow-up. Imaging will be reviewed at the upcoming lung nodule review conference on 02/18/2024 and recommendations will be shared with providers. documented in this [facility]2024 Telephone encounter Note* Telephone Encounter - Clarita Coppola LPN - 02/14/2024 8:32 AM EST I was able to speak with patient, I notified him of the results, and provided him with the number to the clinic so he can call to set up an appointment. [facility] as well to has access to that way. [facility] [id number] Telephone encounter Note* Telephone Encounter - Lynda [...] patient is aware of results and referral [facility] HospitalFdeule41-44-2390 Telephone encounter Note* Telephone Encounter - Fadia Hartley RCP - 02/13/2024 12:53 PM EST Maria De Jesus Hogan 1965 had an abnormal Lung Rads 4A lung screening CT and an expedited referral to the [facility] lung nodule clinic is recommended. If you agree, please notify patient of findings and consider placing lung nodule clinic referral atthis time. Navigators are available to assist with expediting follow-up. Imaging will be reviewed at the upcoming lung nodule review conference on 02/18/2024 and recommendations will be shared with providers. [place] [id number] Telephone encounter Note* Telephone Encounter - Fadia Hartley RCP - 02/13/2024 12:53 PM EST error [address]myvxe09-25-2930 Miscellaneous Notes* Telephone Encounter - Fadia Hartley RCP - 02/13/2024 12:53 PM EST error documented in this [facility]11-07-2024 Telephone encounter Note* Telephone Encounter - Clarita Coppola LPN - 02/06/2024 3:19 PM EST Seen yesterday No future appt [address]Qwissv31-40-0985 Miscellaneous Notes* Telephone Encounter - Clarita Coppola LPN - 02/06/2024 3:19 PM EST Seen yesterday No future appt documented in this [place] [address]-07-2024 Telephone encounter Note* Telephone Encounter - Clarita Coppola LPN - 02/06/2024 3:16 PM EST 06/26/23 last filled Seen yesterday. No future appt set up [address]Hlljur81-49-1207 Miscellaneous Notes* Telephone Encounter - Clarita Coppola LPN - 02/06/2024 3:16 PM EST 06/26/23 last filled Seen yesterday. No future appt set up documented in this [facility]11-06-2024 History of Present illness Narrative* Lynda Rasheed MD - 02/05/2024 8:20 AM EST Images from the original note were not included. [facility] - [address] [facility] [address] Dept: [phone] Dept Loc: [phone] Reason for Visit: Follow-up (Med Check ) [...] colon cancer [place] [facility] - Sotero Madsen MD 5. [...] Now he has been working with the curriculum specialist with Vivitrol injections. He states he was also on gabapentin which seems to help. He is asking for refill for this and continues t o see the curriculum specialist for his Vivitrol injection. He also [...] CYST REMOVAL face EGD (HISTORICAL) 07/23/2022 Dr. Estrella-[facility] SMALL INTESTINE SURGERY UPPER GASTROINTESTINAL ENDOSCOPY 09/27/2021 normal WISDOM TOOTH EXTRACTION Family History Problem Relation Name Age of Onset Depression Sister Maria De Jesus Hogan Other ([id number]) Sister Maria De Jesus Hogan agoraphobia Arthritis Sister Maria De Jesus Hogan Cancer Mother Maria De Jesus Hogan colon rectal cancer; dx after age 50 Other ([id number]) Mother Maria De Jesus Hogan alcoholism Alcohol abuse Mother Maria De Jesus Hogan Stroke Mother Maria De Jesus Hogan Other ([id number]) Father Maria De Jesus Hogan h/o rheumatic [...] by Triston Rasheed MD documented in this [facility]10-29-2024 History of Present illness Narrative* Ammon Abdul, [facility] - 01/28/2024 1:30 PM EDT Outpatient Behavioral Health Initial Assessment Start Time: 1417 , End Time: 14[address] a [address] Appointed Guardian? no Does patient have a Durable Power of Cupboard Builder? no Does the patient have an Advanced Directive? If Yes, copy received? no Screening Tool Score Comment (required for each screening tool) PHQ-9 1 (PHQ-2: 0) Not clinically significant KENY-7 3 Not clinically significant AUDIT-C 11 Likely indicates AUD DAST-10 0 Not clinically significant Life Events Checklist pos Pos in one domain PCL-5 4 Not clinically significant Language Preferred Language: Irish Languages Spoken: yakut Presenting Problem(s) Reason for visit as reported [...] were you homeless or living in a intermediate (including now)?: No Patient feels safe at [...] identify any impact on treatment) none reported Bahai/Spiritual Orientation (note if patient identifies any belief in higher power, hinduism belief, or not. Identify any spiritual/hinduism beliefs about suicide) none reported Educational History [...] Not answered Start Date: Not answered Service [place] Status: Never Served Branch: Not answered Years [...] to answer How often do you attend mandaen or hinduism services?: Never Do you belong to any clubs or organizations such as mandaen groups, unions, fraternal or athletic groups, or [...] If the patient has ever been to assisted or in longterm, list where and how much time the [...] De Jesus Hypertension Insomnia family history includes [id number] in his father, mother, and sister; Alcohol [...] yes, include date and reason) detox at [facility] Past Surgical History: Procedure Laterality Date COLONOSCOPY 06/10/2020 EGD/Dr Madison/AMANDA CYST REMOVAL face EGD (HISTORICAL) 07/23/2022 Dr. Estrella-[facility] SMALL INTESTINE SURGERY UPPER GASTROINTESTINAL ENDOSCOPY [...] Admission Number of detox admissions: 3 Location: [facility] Date: 01/13/24 Is there an immediate need [...] No Risk/Stable, Rationale: Pt completed detox at [facility] on 01-23-2014 1 Dimension 2 Severity [...] 1:54 PM PABLO Paul documented in this [facility]10-25-2024 Nurse Note* Virgilio Bone RN - 01/24/2024 2:10 PM EDT Patient discharging home. Patient received vivitriol injection tolerated well. Patient given medication alert bracelet. Patient medications reviewed and appointments. Patient sent with written instructions and belongings. Patient picking up in [facility]. [facility] [id number] Nurse Note* Virgilio Bone RN - 01/24/2024 2:10 PM EDT Patient discharging home. Patient received vivitriol injection tolerated well. Patient given medication alert bracelet. Patient medications reviewed and appointments. Patient sent with written instructions and belongings. Patient picking up in [facility]. * Yasemin Abdul RN - 01/24/2024 4:31 AM EDT Patient up, social with peers with appropriate behavior. Patient takes medication with ease. Patient encouraged to make needs known. * Tracy Davies RN - 01/23/2024 2:57 PM EDT 0915: Pt social in [facility]. Pt has attended groups. Pt A&O [...] 01/20/2024 10:37 PM EDT Pt arrived from [facility] ED via cart with squad and [...] monitor pt for safety. documented in this [facility]10-25-2024 [facility] 01-24-2024 Hospital course Narrative* Tiki LagunasDuc Ponce, BUSINESS RISK ANALYST - ROTOPRINTER - 01/24/2024 11:17 AM EDT Addiction Medicine [...] compliant with the rules and regulations of [facility] and was appropriate with staff and peers. [...] 367 ms QTC Interval 460 ms P [place] 50 degrees QRS [place] 55 degrees T Wave [place] 51 degrees MI Interval 166 ms SARS-CoV-2 Antigen Collection Time: [...] given to pursue chemical dependency treatment at: [facility] Addiction [address] [phone] Go on 01/28/2024 at 1:30pm with Ammon for intake assessment for Intensive Outpatient Program and addiction medicine follow up. JUAN Delgado CNP [address] [place] [id number] Go on 02/12/2024 at 2 PM for [...] Note: Narrative portions of note written using [employer] dictation software. Efforts are made to dictate [...] __ Patient MRN Maria De Jesus Hogan [id number] 1965 Admit Date Discharge Date 01/20/2024 01/24/2024 [...] saw him in October on consults at [facility]. States he wants to follow through with [...] 367 ms QTC Interval 460 ms P [place] 50 degrees QRS [place] 55 degrees T Wave [place] 51 degrees MI Interval 166 ms SARS-CoV-2 Antigen Collection Time: [...] Your Medications These medications were sent to [facility] [address] [place] [address] [employer] [address] [address] gabapentin 300 MG capsule Follow Up [facility] Addiction IOP [address] [place] [phone] Go on 01/28/2024 at 1:30pm with Ammon for intake assessment for Intensive Outpatient Program and addiction medicine follow up. JUAN Delgado CNP [address] [place] [phone] Go on 02/12/2024 at 2 PM for MAT/Vivitrol follow-up. Future Appointments Date Time Provider Department Center 01/28/2024 1:30 PM PABLO Paul [facility] ADD IOP None 02/12/2024 2:00 PM JUAN Delgado CNP [facility] ACD- None The patient was also [...] Summary: > 30 mins documented in this encounterSKeenan Private [id number] [facility] 01-24-2024 Note* Care Coordination - JEREMY Solis - 01/24/2024 8:19 AM EDT INTEGRATED LOGISTICS PROGRAMS DIRECTOR saw patient to discuss aftercare plans and [...] home. Patient denied needing anything further from INTEGRATED LOGISTICS PROGRAMS DIRECTOR at the time. INTEGRATED LOGISTICS PROGRAMS DIRECTOR informed patient's nurse about conversation. [id number] Note* Care Coordination - JEREMY Solis - 01/24/2024 8:19 AM EDT INTEGRATED LOGISTICS PROGRAMS DIRECTOR saw patient to discuss aftercare plans and [...] home. Patient denied needing anything further from INTEGRATED LOGISTICS PROGRAMS DIRECTOR at the time. INTEGRATED LOGISTICS PROGRAMS DIRECTOR informed patient's nurse about conversation. [facility] [id number] Miscellaneous Notes* Care Coordination - JEREMY Solis - 01/24/2024 8:19 AM EDT INTEGRATED LOGISTICS PROGRAMS DIRECTOR saw patient to discuss aftercare plans and [...] home. Patient denied needing anything further from INTEGRATED LOGISTICS PROGRAMS DIRECTOR at the time. INTEGRATED LOGISTICS PROGRAMS DIRECTOR informed patient's nurse about conversation. * Care [...] Jesus Hogan Date of : 1965 MR: [id number] Appearance: Good eye contact Affect: Appropriate Behavior: [...] as an adult. Patient denies any history [place] or status. Family Constellation/Childhood History: Patient reports that he is currently to his living in [facility]. Patient reports that he has 3 biological children and 4 stepchildren. Patient reports that his father in his 11 years old. Patient did not report his mother is stillalive currently. Patient was born and raised in [place], [place] by his mother and father. 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 Patient denies SSI/SSD. Cultural/Spirituality/Leisure: Patient denies any cultural needs or concerns at the current time. Patient denies identify any hinduism preference. It is unknown if patient is [...] current time. Patient encouraged to seek out [facility] staff should they identify any additional [...] the shift include comfort/safety documented in this [facility]10-25-2024 Plan of care note* Care Plan - [...] 01/23/20242199 by Yasemin Abdul RN Outcome: Progressing [facility] HospitalCisvrn53-18-5143 Nurse Note* Yasemin Abdul RN - 01/24/2024 4:31 AM EDT Patient up, social with peers with appropriate behavior. Patient takes medication with ease. Patient encouraged to make needs known. [id number] Nurse Note* Tracy Davies RN - 01/23/2024 2:57 PM EDT 0915: Pt social in lobby. Pt has attended groups. Pt A&O x4. Pt denies SI/HI/AVH. Pt compliant with medications. Pt eating and taking fluids well. Pt up and gait steady. Pt allowed to wear his own shoes. Pt is pleasant and cooperative. Pt encouraged to notify staff with concerns. [facility] HospitalKakosk77-03-6777 Plan of care note* Care Plan - [...] other facility with appropriate resources Outcome: Progressing [facility] HospitalFahttg31-46-2084 History of Present illness Narrative* Soraida Caldwell [...] in IOP and vivitrol - would prefer [facility] IOP and MAT follow up Alcohol [...] be monitored and followed by the diet biosolids management technician. CORDELL Hallman * Soraida Caldwell MD [...] own, reaffirms strong interest in going to [facility] to address drinking Reports interest in vivitrol [...] Electronically Signed On 01-20-2024 19:55:10 EDT by Beran Labs CBC: Recent Labs 01/20/24 1749 WBC [...] to see his response. documented in this [facility]10-24-2024 NoteProblem: Potential for Substance Withdrawal Goal: Verbalizes signs/symptoms of withdrawal Outcome: Progressing Goal: Reports signs/symptoms of withdrawal Outcome: Progressing Goal: Free of withdrawal symptoms [facility] Plan of care note* Care Plan - Evelyn Abad RN - 01/23/2024 4:23 AM EDT Problem: Potential for Substance Withdrawal Goal: Verbalizes signs/symptoms of withdrawal Outcome: Progressing Goal: Reports signs/symptoms of withdrawal Outcome: Progressing Goal: Free of withdrawal symptoms Outcome: Progressing [facility] [id number] Nurse Note* Evelyn Abad RN - 01/23/2024 1:54 AM EDT Patient is up and steady, seen in group room socializing. Pt is cooperative and med compliant. Pt denies SI/HI/AVH. Pt encouraged to notify staff for any questions and concerns. [facility] [id number] Note* Care Coordination - JEREMY Solis - 01/22/2024 11:45 AM EDT Patient interested in IOP and MAT. Patient scheduled for [facility] on 01/28/2024 at 1:30 PM. Patient scheduled for MAT with nurse practitioner Feli on 02/12/2024 at 2 PM. All information included in patient's discharge paperwork. T [facility] [id number] Note* Care Coordination - JEREMY Solis - 01/22/2024 11:45 AM EDT Patient interested in IOP and MAT. Patient scheduled for [facility] on 01/28/2024 at 1:30 PM. Patient scheduled for MAT with nurse practitioner Feli on 02/12/2024 at 2 PM. All information included in patient's discharge paperwork. [facility] [id number] Group counseling note* Group Note - Aurora Camarena - 01/22/2024 11:42 AM EDT Department: [facility] ACTIVITIES THERAPY Group Topic: Recreation Therapy Group [...] Jesus Hogan Date of : 1965 MR: [id number] Appearance: Good eye contact Affect: Appropriate Behavior: [...] withdrawal with inpatient treatment without complication (HCC) [facility] HospitalLfzmgb17-90-3538 NoteProblem: Potential for Substance Withdrawal Goal: Reports signs/symptoms of withdrawal Outcome: Progressing Problem: Drug Abuse/Detox Goal: Will have no detox symptoms and will verbalize plan for changing drug-related behavior Outcome: [facility]10-23-2024 Nurse Note* Adeline Peacock RN - 01/22/2024 8:25 AM EDT Patient sitting in day lyn upon RN approach. Patient compliant with taking AM medications. Patientdenies suicidal ideation, self harm, homicidal ideation, visual hallucinations, auditory hallucinations and pain. Patient pleasant throughout exam. Patient educated on plan of care and to seek staff with concerns. Patient verbalizes understanding. [facility]10-23-2024 Plan of care note* Care Plan - Adeline Peacock RN - 01/22/2024 8:25 AM EDT Problem: Potential for Substance Withdrawal Goal: Reports signs/symptoms of withdrawal Outcome: Progressing Problem: Drug Abuse/Detox Goal: Will have no detox symptoms and will verbalize plan for changing drug- related behavior Outcome: Progressing [facility]10-23-2024 NoteProblem: Potential for Substance Withdrawal Goal: Verbalizes signs/symptoms of withdrawal Outcome: Progressing Goal: Reports signs/symptoms of withdrawal Outcome: Progressing Goal: Free of withdrawal symptoms Outcome: [facility]10-23-2024 Plan of care note* Care Plan - Evelyn Abad RN - 01/22/2024 2:01 AM EDT Problem: Potential for Substance Withdrawal Goal: Verbalizes signs/symptoms of withdrawal Outcome: Progressing Goal: Reports signs/symptoms of withdrawal Outcome: Progressing Goal: Free of withdrawal symptoms Outcome: Progressing [place] [address]91-23-2024 NoteProblem: Potential for Substance Withdrawal Goal: Verbalizes signs/symptoms of withdrawal Outcome: Progressing Goal: Reports signs/symptoms of withdrawal Outcome: Progressing Goal: Free of withdrawal symptoms Outcome: [facility]10-23-2024 Plan of care note* Care Plan - Evelyn Abad RN - 01/22/2024 2:01 AM EDT Problem: Potential for Substance Withdrawal Goal: Verbalizes signs/symptoms of withdrawal Outcome: Progressing Goal: Reports signs/symptoms of withdrawal Outcome: Progressing Goal: Free of withdrawal symptoms Outcome: Progressing [facility] HospitalCqkerg10-31-0611 Nurse Note* Evelyn Abad RN - 01/21/2024 11:30 PM EDT Patient is up and steady, seen in group room. Pt is cooperative and med compliant. Pt is encouragedto notify staff for any questions and concerns. [facility] [id number] Nurse Note* Nanette De Santiago RN - 01/21/2024 11:11 AM EDT Patient received PRN albuterol inhaler as per orders at [address] [facility] [id number] Hospital Discharge instructions* Discharge Instr - Other [...] National Suicide Prevention Hotline if needed at: 4-287-687-LAOD (1190) Please call the following number should you have questions regarding your discharge or aftercare appointments: [facility] documented in this [facility]10-22-2024 Note* Care Coordination - JEREMY Solis - [...] as an adult. Patient denies any history [place] or status. Family Constellation/Childhood History: Patient reports that he is currently to his living in [facility]. Patient reports that he has 3 biological children and 4 stepchildren. Patient reports that his father in his 11 years old. Patient did not report his mother is stillalive currently. Patient was born and raised in [place], [place] by his mother and father. 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 Patient denies SSI/SSD. Cultural/Spirituality/Leisure: Patient denies any cultural needs or concerns at the current time. Patient denies identify any hinduism preference. It is unknown if patient is [...] current time. Patient encouraged to seek out [facility] unit staff should they identify any additional [...] to contact the dictating provider for clarification. [facility] HospitalLjlvdn97-93-6324 Note* Care Coordination - JEREMY Solis - [...] as an adult. Patient denies any history [place] or status. Family Constellation/Childhood History: Patient reports that he is currently to his living in [facility]. Patient reports that he has 3 biological children and 4 stepchildren. Patient reports that his father in his 11 years old. Patient did not report his mother is stillalive currently. Patient was born and raised in [place], [place] by his mother and father. 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 Patient denies SSI/SSD. Cultural/Spirituality/Leisure: Patient denies any cultural needs or concerns at the current time. Patient denies identify any hinduism preference. It is unknown if patient is [...] any treatment recommendations and provided to him. TABLE FILLER will continue to work with patient in order to hopefully identify aftercare plans. Patient encouraged to engage in all activities that are offered to them while they are on the unit.Patient report needing additional current time. Patient encouraged to seek out [employer] unit staff should they identify any additional [...] to contact the dictating provider for clarification. [facility] HospitalCgnwhq56-81-7658 Nurse Note* Nanette De Santiago RN - 01/21/2024 9:28 AM EDT Patient received PRN respiratory TX from RT at 0915 with good results. 02 93 percent with no O2 [facility] HospitalAeqwqc15-92-4182 Plan of care note* Care Plan - Kristina Hampton RN - 01/21/2024 7:34 AM EDT The patient is Moderately Stable - Low risk of patient condition declining or worsening The patient's goals for the shift include rest The clinical goals for the shift include comfort/safety [facility] HospitalKbueyh47-29-6459 History and physical note* Soraida Caldwell MD [...] saw him in October on consults at [facility]. States he wants to follow through with [facility] this time. On admission, a urine drug [...] but Pt cannot recall where. Detoxifications: x1 [facility] (per Pt). 12 Step Meetings: Has [...] withdrawal, with unspecified complication (HCC) 10/02/2019 Alcoholism ([facility]HCC) (HCC) Anxiety Arthritis Maria De Jesus Cerebral artery occlusion with cerebral infarction (HCC) Cerebrovascular disease Depression GERD (gastroesophageal reflux disease) Maria De Jesus Hypertension Insomnia Past Surgical History Past Surgical History: Procedure Laterality Date COLONOSCOPY 06/10/2020 EGD/Dr Madison/AMANDA CYST REMOVAL face EGD (HISTORICAL) 07/23/2022 Dr. Estrella-[facility] SMALL INTESTINE SURGERY UPPER GASTROINTESTINAL ENDOSCOPY 09/27/2021 normal WISDOM TOOTH EXTRACTION Family History Family History Problem Relation Name Age of Onset Depression Sister Maria De Jesus Hogan Other ([id number]) Sister Maria De Jesus Hogan agoraphobia Arthritis Sister Maria De Jesus Hogan Cancer Mother Maria De Jesus Hogan colon rectal cancer; dx after age 50 Other ([id number]) Mother Maria De Jesus Hogan alcoholism Alcohol abuse Mother Maria De Jesus Hogan Stroke Mother Maria De Jesus Hogan Other ([id number]) Father Maria De Jesus Hogan h/o rheumatic [...] min Stress: No Stress Concern Present (01/20/2024) [employer] - Occupational Stress Questionnaire Feeling of Stress : Not at all Social Connections: Socially Isolated (01/20/2024) Social Connection and Isolation Panel [NHANES] Frequency of Communication with Friends and Family: Never Frequency of Social Gatherings with Friends and Family: Never Attends Hinduism Services: Never Active Member of Clubs or [...] Year: No Utilities: Not At Risk (01/20/2024) [facility] Utilities Threatened with loss of utilities: No [...] Electronically Signed On 01-20-2024 19:55:10 EDT by Screenleap Recent Results (from the past 48 hours) [...] 367 ms QTC Interval 460 ms P [place] 50 degrees QRS [place] 55 degrees T Wave [place] 51 degrees [place] Interval 166 ms SARS-CoV-2 Antigen Collection Time: [...] with the fellow s findings and plan. [facility] [id number] [facility]10-22-2024 History and physical note* Soraida Caldwell MD [...] saw him in October on consults at [facility]. States he wants to follow through with [facility] this time. On admission, a urine drug [...] but Pt cannot recall where. Detoxifications: x1 [facility] (per Pt). 12 Step Meetings: Has [...] CYST REMOVAL face EGD (HISTORICAL) 07/23/2022 Dr. Estrella-[facility] SMALL INTESTINE SURGERY UPPER GASTROINTESTINAL ENDOSCOPY 09/27/2021 normal WISDOM TOOTH EXTRACTION Family History Family History Problem Relation Name Age of Onset Depression Sister Maria De Jesus Hogan Other ([id number]) Sister Maria De Jesus Hogan agoraphobia Arthritis Sister Maria De Jesus Hogan Cancer Mother Maria De Jesus Hogan colon rectal cancer; dx after age 50 Other ([id number]) Mother Maria De Jesus Hogan alcoholism Alcohol abuse Mother Maria De Jesus Hogan Stroke Mother Maria De Jesus Hogan Other ([id number]) Father Maria De Jesus Hogan h/o rheumatic fever, cardiac arrest due to bee sting Hypertension Father Maria De Jesus Hogan [employer] Tobacco Use: High Risk (11/28/2023) Patient History [...] min Stress: No Stress Concern Present (01/20/2024) [employer] - Occupational Stress Questionnaire Feeling of Stress : Not at all Social Connections: Socially Isolated (01/20/2024) Social Connection and Isolation Panel [NHANES] Frequency of Communication with Friends and Family: Never Frequency of Social Gatherings with Friends and Family: Never Attends Hinduism Services: Never Active Member of Clubs or [...] Year: No Utilities: Not At Risk (01/20/2024) [facility] Utilities Threatened with loss of utilities: No [...] 367 ms QTC Interval 460 ms P [place] 50 degrees QRS [place] 55 degrees T Wave [place] 51 degrees [place] Interval 166 ms SARS-CoV-2 Antigen Collection Time: [...] s findings and plan. documented in this [facility]10-21-2024 Nurse Note* Kristina Hampton RN - 01/20/2024 10:37 PM EDT Pt arrived from [facility] ED via cart with squad and [...] in condition. Will monitor pt for safety. [facility] [id number] Emergency department Note* Jacqueline Richardson RN - 01/20/2024 10:03 PM EDT Called in report to TISH Acevedo at [facility] 4. Jacqueline Richardson RN 01/20/242202 [facility] HospitalYgrmuw51-07-6272 Emergency department Note* Jacqueline Richardson RN - 01/20/2024 10:03 PM EDT Called in report to TISH Acevedo at [facility] 4W. Jacqueline Richardson RN 01/20/242202 * Triston [...] emergency department visit, please see their documentation. [facility] ED EMERGENCY DEPARTMENT ENCOUNTER Pt Name: [...] for detox from alcohol. 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 Says was in detox [...] History: Procedure Laterality Date COLONOSCOPY 06/10/2020 EGD/Dr Madison/aJnis CYST REMOVAL face EGD (HISTORICAL) 07/23/2022 Dr. Estrella-[facility] SMALL INTESTINE SURGERY UPPER GASTROINTESTINAL ENDOSCOPY [...] Depression Sister Maria De Jesus Hogan Other ([id number]) Sister Maria De Jesus Hogan agoraphobia Arthritis Sister Maria De Jesus Hogan Cancer Mother Maria De Jesus Hogan colon rectal cancer; dx after age 50 Other ([id number]) Mother Maria De Jesus Hogan alcoholism Alcohol abuse Mother Maria De Jesus Hogan Stroke Mother Maria De Jesus Hogan Other ([phone]) Father Maria De Jesus Hogan h/o rheumatic [...] 0 min Stress: Stress Concern Present (07/28/2023) [employer] - Occupational Stress Questionnaire Feeling of Stress : To some extent Social Connections: Moderately Isolated (07/28/2023) Social Connection and Isolation Panel [NHANES] Frequency of Communication with Friends and Family: Twice a week Frequency of Social Gatherings with Friends and Family: Once a week Attends Hinduism Services: Never Active Member of Clubs or [...] Housing in the Last Year: No SCREENINGS [place] Coma Scale Best Eye Response: Spontaneous Best [...] Triston Abraham MD PATRICIA Emergency Medicine Physician [facility] Triston Abraham MD 01/20/242048 * Dani Mike [...] withdrawal, with unspecified complication (HCC) 10/02/2019 Alcoholism ([facility]/HCC) (HCC) Anxiety Arthritis Maria De Jesus Cerebral artery occlusion with cerebral infarction (HCC) Cerebrovascular disease Depression GERD (gastroesophageal reflux disease) Maria De Jesus Hypertension Insomnia SURGICAL HISTORY Past Surgical History: Procedure Laterality Date COLONOSCOPY 06/10/2020 EGD/Dr Madison/Janis CYST REMOVAL face EGD (HISTORICAL) 07/23/2022 Dr. Estrella-[facility] SMALL INTESTINE SURGERY UPPER GASTROINTESTINAL ENDOSCOPY [...] Depression Sister Maria De Jesus Hogan Other ([phone]) Sister Maria De Jesus Hogan agoraphobia Arthritis Sister Maria De Jesus Hogan Cancer Mother Maria De Jesus Hogan colon rectal cancer; dx after age 50 Other ([id number]) Mother Maria De Jesus Hogan alcoholism Alcohol abuse Mother Maria De Jesus Hogan Stroke Mother Maria De Jesus Hogan Other ([id number]) Father Maria De Jesus Hogan h/o rheumatic [...] 0 min Stress: Stress Concern Present (07/28/2023) [employer] - Occupational Stress Questionnaire Feeling of Stress : To some extent Social Connections: Moderately Isolated (07/28/2023) Social Connection and Isolation Panel [NHANES] Frequency of Communication with Friends and Family: Twice a week Frequency of Social Gatherings with Friends and Family: Once a week Attends Hinduism Services: Never Active Member of Clubs or [...] Housing in the Last Year: No SCREENINGS [place] Coma Scale Best Eye Response: Spontaneous Best Verbal Response: Oriented Best Motor Response: Follows commands [place] Coma Scale Score: 15 PHYSICAL EXAM ED [...] having anxiety, vomiting, palpitations documented in this encounterSKeenan Private HospitalHmydfy73-08-2576 NoteNOTE: This result is for medical treatment only. Analysis performed using non-forensic procedures. [facility] HospitalSnuszq60-16-1160 Emergency department Triage note* Jo Ann Leiva RN - 01/20/2024 5:20 PM EDT Pt presents seeking alcohol detox. Last drink was right before leaving house. Drinks about 6-8 beers/day. Has been through detox in past. Has never had withdrawal seizures. Currently having anxiety, vomiting, palpitations [facility] HospitalQibcge31-23-7533 Physician Emergency department Note* Triston Abraham MD [...] emergency department visit, please see their documentation. [facility] ED EMERGENCY DEPARTMENT ENCOUNTER Pt Name: [...] for detox from alcohol. 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 Says was in detox [...] CYST REMOVAL face EGD (HISTORICAL) 07/23/2022 Dr. Estrella-[facility] SMALL INTESTINE SURGERY UPPER GASTROINTESTINAL ENDOSCOPY [...] Depression Sister Maria De Jesus Hogan Other ([phone]) Sister Maria De Jesus Hogan agoraphobia Arthritis Sister Maria De Jesus Hogan Cancer Mother Maria De Jesus Hogan colon rectal cancer; dx after age 50 Other ([id number]) Mother Maria De Jesus Hogan alcoholism Alcohol abuse Mother Maria De Jesus Hogan Stroke Mother Maria De Jesus Hogan Other ([id number]) Father Maria De Jesus Hogan h/o rheumatic [...] 0 min Stress: Stress Concern Present (07/28/2023) [employer] - Occupational Stress Questionnaire Feeling of Stress : To some extent Social Connections: Moderately Isolated (07/28/2023) Social Connection and Isolation Panel [NHANES] Frequency of Communication with Friends and Family: Twice a week Frequency of Social Gatherings with Friends and Family: Once a week Attends Hinduism Services: Never Active Member of Clubs or [...] Housing in the Last Year: No SCREENINGS [place] Coma Scale Best Eye Response: Spontaneous Best [...] Triston Abraham MD PATRICIA Emergency Medicine Physician [facility] Triston Abraham MD 01/20/242048 [facility] Phone: 1(149) 108-347210-21-2024 Physician Emergency department Note* Dani Mike DO [...] CYST REMOVAL face EGD (HISTORICAL) 07/23/2022 Dr. Estrella-[facility] SMALL INTESTINE SURGERY UPPER GASTROINTESTINAL ENDOSCOPY [...] Depression Sister Maria De Jesus Hogan Other ([id number]) Sister Maria De Jesus Hogan agoraphobia Arthritis Sister Maria De Jesus Hogan Cancer Mother Maria De Jesus Hogan colon rectal cancer; dx after age 50 Other ([id number]) Mother Maria De Jesus Hogan alcoholism Alcohol abuse Mother Maria De Jesus Hogan Stroke Mother Maria De Jesus Hogan Other ([id number]) Father Maria De Jesus Hogan h/o rheumatic [...] 0 min Stress: Stress Concern Present (07/28/2023) [employer] - Occupational Stress Questionnaire Feeling of Stress : To some extent Social Connections: Moderately Isolated (07/28/2023) Social Connection and Isolation Panel [NHANES] Frequency of Communication with Friends and Family: Twice a week Frequency of Social Gatherings with Friends and Family: Once a week Attends Hinduism Services: Never Active Member of Clubs or [...] Response: Oriented Best Motor Response: Follows commands [place] Coma Scale Score: 15 PHYSICAL EXAM ED [...] Abraham MD at 01/20/2024 9:[address] [facility] HospitalBecohz53-15-2602 Miscellaneous Notes* Care Coordination - PABLO Gannon - 12/11/2023 1:00 PM EDT Pt did not show for IOP assessment on this date. documented in this encounterSKeenan Private HospitalKjlauc69-55-2972 Note* Care Coordination - PABLO Gannon - 12/11/2023 1:00 PM EDT Pt did not show for IOP assessment on this date. [facility] HospitalOmtsve91-29-2606 Note* Care Coordination - PABLO Gannon - 12/11/2023 1:00 PM EDT Pt did not show for IOP assessment on this date. [facility] HospitalGrieib41-75-1371 Telephone encounter Note* Telephone Encounter - Lauren Sheikh MA - 12/03/2023 1:43 PM EDT Recent Visits Date Type Provider Dept 12/26/22 Office Visit Lynda Rasheed MD [facility] Showing recent visits within past 365 days and meeting all other requirements Future Appointments Date Type Provider Dept 12/17/23 Appointment Lynda Rasheed MD [facility] Showing future appointments within next [...] medications from any other provider? No None [facility] HospitalJvbmdl96-23-5208 Miscellaneous Notes* Telephone Encounter - Lauren Sheikh MA - 12/03/2023 1:43 PM EDT Recent Visits Date Type Provider Dept 12/26/22 Office Visit Lynda Rasheed MD [facility] Showing recent visits within past 365 days and meeting all other requirements Future Appointments Date Type Provider Dept 12/17/23 Appointment Lynda Rasheed MD [facility] Showing future appointments within next [...] other provider? No None documented in this [facility]08-31-2024 Hospital course Narrative* Saurabh Moran MD - [...] period of sobriety while he was in assisted although appears that his last time in detox was earlier this year in June. He came in with serum ethanol level of 0.297 on 11/27. He was admitted fordetox and addiction med was consulted. The following is a summary of his diagnosis management during his stay here at [facility]: Acute, acute on chronic, unstable/uncontrolled chronic [...] NAME: Follow up with Lynda Rasheed MD [address] [place] [address] [address] [facility] [address] INSTRUCTIONS TO MA/SW: Please call patient [...] MD 11/30/2023, 10:50 AM documented in this encounterSKeenan Private HospitalCayapa91-54-5174 [facility] 11-30-2023 Nurse Note* Dee yLn RN - 11/30/2023 10:08 AM EDT At 0900, patient wanted to talk to the physician about being discharged today. Physician spoke withpatient. Physician notified this nurse that patient wants to leave AMA and would not be discharged today. At 1000, this nurse provided patient with AMA form. AMA form was signed by patient, and this nurse removed patient IV. [facility] [id number] Nurse Note* Dee Lyn RN - 11/30/2023 [...] ppd of tobacco. [facility]. Is actually not allowed back on the detox unit at [facility] because of some incident that occurred in [...] with his . 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 Has a valid ID. is able to transport patient because he does not currently drive. [place] for health insurance coverage. Plan is to admit patient medically for detox at [facility] [facility]. Would also recommend that patient follow up with IOP on discharge. Patient seemed interested in Vivitrol. Patient provided with a list of treatment re sources in addition to First Step, IOP, Vivitrol, and Sikh [facility] Peer Bed And Breakfast Operator Service pamphlets. documented in this [facility]08-31-2024 Plan of care note* Care Plan - [...] other facility with appropriate resources Outcome: Progressing [facility]Hgmcnv44-55-3685 Miscellaneous Notes* Care Plan - Dee Lyn [...] Limits Permission given to speak with patient customer field representative/caregiver as indicated: Confirmation of Payer with patient/family: Yes Payer Name: Annemarie JOSE ANGEL [place]: No Confirmation of Primary Care Physician: Confirmed PCP Name: Dr. Lynda Rasheed Seen in last 2 years?: Yes Primary Caregiver: Self If assistance needed, confirmed caregiver ready, willing and able to care for patient at discharge:Yes Confirmed with: Per pt: June is able to assist at [place] Living Arrangements Current Residence: House Number of [...] routinely. Has insurance and prescription coverage, uses [facility] in [place]. Patient denies any financial difficulties. Plan to [...] PM Duration: 10 mins Type of Contact: Oqpg-fu-Fqcz Patient's Identified Case Management/Care Coordination Need(s) addressed [...] experiences with IOP through Addiction Medicine at [facility]. Note Any Anticipated Barriers: Pt stated he [...] he had recently gone through Detox at [facility] and other IOP services and it had helped in the past. documented in this encounterSKeenan Private HospitalYmfjnf20-23-2171 Plan of care note* Care Plan - Mp Butler RN - 11/30/2023 7:02 AM EDT The patient is Moderately Stable - Low risk of patient condition declining or worsening The patient's goals for the shift include Safety The clinical goals for the shift include Safety [facility]Zqyyrn01-35-5984 Plan of care note* Care Plan - Keshia Armijo RN - 11/29/2023 5:16 PM EDT The patient is Moderately Stable - Low risk of patient condition declining or worsening The patient's goals for the shift include Safety and to feel better. The clinical goals for the shift include safety [facility] HospitalLwgjkn94-05-0587 Note* Care Coordination - BENNIE Sethi - 11/29/2023 4:09 PM EDT S/W, IOP IOP counselor did come up to see patient to discuss treatment program. Patient was scheduled for an appointment for 12/[address] [facility] HospitalXfryqx88-92-0857 Note* Care Coordination - BENNIE Sethi - 11/29/2023 4:09 PM EDT S/W, IOP IOP counselor did come up to see patient to discuss treatment program. Patient was scheduled for an appointment for 12/10 at 10A. [facility] Vcqcru51-45-1881 Note* Care Coordination - Nancy Munroe RN - 11/29/2023 12:21 PM EDT Care Managment Initial Assessment Date: 11/29/2023 Patient Name: Maria De Jesus Hogan : 1965 Patient Information Source of Information: Patient Cognition/Language: WFL - Within Functional Limits Permission given to speak with patient customer field representative/caregiver as indicated: Confirmation of Payer with patient/family: Yes Payer Name: Annemarie WALTER [place]: No Confirmation of Primary Care Physician: Confirmed PCP Name: Dr. Lynda Rasheed Seen in last 2 years?: Yes Primary Caregiver: Self If assistance needed, confirmed caregiver ready, willing and able to care for patient at discharge:Yes Confirmed with: Per pt: June is able to assist at [place] Living Arrangements Current Residence: House Number of [...] Prescription Coverage: Yes Pharmacy Used: [facility] [place] Medication Management: Independent Transportation/Shopping: Independent Transportation Mode: [...] routinely. Has insurance and prescription coverage, uses [facility] in [place]. Patient denies any financial difficulties. Plan to DC home with ETOH treatment when medically stable. Patient verbalizes understanding and is in agreement with POC. Nancy Munroe RN [facility] HospitalBhiqht62-80-7502 Note* Care Coordination - Nancy Munroe RN - 11/29/2023 12:21 PM EDT Care Managment Initial Assessment Date: 11/29/2023 Patient Name: Maria De Jesus Hogan : 1965 Patient Information Source of Information: Patient Cognition/Language: WFL - Within Functional Limits Permission given to speak with patient customer field representative/caregiver as indicated: Confirmation of Payer with [...] Prescription Coverage: Yes Pharmacy Used: [facility] [place] Medication Management: Independent Transportation/Shopping: Independent Transportation Mode: [...] routinely. Has insurance and prescription coverage, uses [facility] in [place]. Patient denies any financial difficulties. Plan to DC home with ETOH treatment when medically stable. Patient verbalizes understanding and is in agreement with POC. Nancy Munroe RN [facility] HospitalLtevry70-48-8531 Note* Care Coordination - Raina Salgado - 11/29/2023 12:10 PM EDT Outpatient Behavioral Health Services Case Management/Care Coordination Note Date of Contact: 11/29/23 Start Time: 12:10 PM End Time: 12:20 PM Duration: 10 mins Type of Contact: Culg-nb-Rpvq Patient's Identified Case Management/Care Coordination Need(s) addressed [...] experiences with IOP through Addiction Medicine at [facility]. Note Any Anticipated Barriers: Pt stated he [...] he had recently gone through Detox at [facility] and other IOP services and it had helped in the past. [facility] HospitalFrgope39-44-8416 Note* Care Coordination - Raina Salgado - 11/29/2023 12:10 PM EDT Outpatient Behavioral Health Services Case Management/Care Coordination Note Date of Contact: 11/29/23 Start Time: 12:10 PM End Time: 12:20 PM Duration: 10 mins Type of Contact: Cnse-ps-Ncgq Patient's Identified Case Management/Care Coordination Need(s) addressed [...] experiences with IOP through Addiction Medicine at [facility]. Note Any Anticipated Barriers: Pt stated he [...] he had recently gone through Detox at [facility] and other IOP services and it had helped in the past. [facility] HospitalRzvidz23-30-8720 History of Present illness Narrative* Saurabh Moran MD - 11/29/2023 11:30 AM EDT Hospitalist Progress Note 11/29/2023 [phone]: Please page me ([phone]) for patient care issues. [phone]: Please page [facility] Hospitalist for any issues. Subjective: Admit Date: 11/27/2023 PCP: Lynda Rasheed MD Room#: B4-466/B4-466 A Interval History: Patient states he is feeling pretty good today. Denies feeling anxious or jitteryright now. Denies chest pain or sob. No abdominal pain, nausea, vomiting. No fevers or chills. He denies any new complaints Adult diet Regular @FSBU4KFMQXH@ 24HR INTAKE/OUTPUT: No intake or output data [...] MD Division of Hospitalist Medicine Inpatient Medical Services/[facility]: Epic chat * Mae Rob - 11/29/2023 10:54 AM EDT Nutrition rescreen completed. Chart reviewed. Patient to be monitored and followed by the diet biosolids management technician. * Luis Branch MD - 11/29/2023 [...] significant changes compared to 07/27/2023 Electronically Signed [id number] 04:56:24 EDT by Val Torres Labs CBC: [...] symptoms. Medical stabilization as per primary team. Case Filler to coordinate aftercare. Patient to follow up with me in office on December 06 2023 at 10:00 AM for Vivitrol injection - LOCATION: [facility]. Will follow. I reviewed the patient's medical record, and reviewed test results. I educated and then counseled the patient on any substance use disorder or chemical dependency related issues. This included a faceto face evaluation and physical examination, and coordinating care on a substance use disorder treatment plan as well as documenting clinical information on the day of visit. documented in this [facility]08-29-2024 Emergency department Note* Judy Higgins RN - 11/28/2023 4:50 PM EDT Unit made aware of impending patient transport to the unit via broadcast. Judy Higgins RN 11/28/[address] [facility] HospitalGerdty83-74-8743 Emergency department Note* Judy Higgins RN - [...] treatment: 12-Step: Heroin Anonymous : Dayne Palm.: [phone], Luis Fernando Cloud: [phone] Narcotics Anonymous: 888-GET_HOPE (862-627-9402) nabuckeye.org Alcohol Anonymous: akronaa.org Cocaine Anonymous: https://www.caohio.org/meetings/akronmeetings, NarAnon: 210.796.7848: 12-step program for families & friends of people with addiction. CRISIS: Homeless Hotline: 839.488.5770 Domestic Violence help line anytime: 629.120.8804 Crisis Hotline: 22/10- 839.852.3228 ADM Addiction Helpline: 966.821.5444 (available 8:30 AM to 4:00 PM ) 2-05-02-1 helps people across [facility] find local resources when they don't know where to turn forhelp. We are available 24 hours a day, 7 days a week. For help, simply dial to speak to one of our trained professionals. METHADONE TREATMENT: [facility], [place] [phone] [facility], [place] [phone] [facility], [place] [phone] [facility], [place] [phone] [facility] [place]- [phone] ext. [phone] or [phone] [facility] ([place])- [phone] DETOX TREATMENT: [facility]: anytime @ [phone] for alcohol & drug addiction help. [facility], [place] [phone] [facility] coordination: [phone] (Medicare not accepted) [facility] [place]: [phone] (Reserve Medicaid not accepted) [facility], [place]: [phone] (Reserve Medicaid not accepted) [place], [place]: [phone] (Will Coordinate Transportation) [facility] [place]: [phone] [place], [place]: [phone], [facility] [place]: [phone] [place], [place] [phone] [facility] [place], [place]: [phone] (Will Coordinate Transportation) [place], [place] [phone] ext. [phone] [place], [place] (pt. must be medically cleared prior to admission in ED) [place], [place] [phone] [place], [place]: [phone] (Reserve Medicaid not accepted) [place], [place] [phone] (Will Coordinate Transportation) [phone] OUTPATIENT TREATMENT: [facility] Addiction [facility] @ [facility] [place], [place] [phone] [facility]: Inpatient or Outpatient- [phone] 1st Step MAT Program @ [facility] ED: [phone] 1st Step MAT Program @ [facility] ED: [phone] 1st Step MAT Program @ [facility] ED: [phone], INTENSIVE OUTPATIENT PROGRAMS @ [facility], [place] Bar[place], [place] [phone] [place], [place] [phone] [place], [place] [phone] [place], [place] [phone] [facility]: [phone] [facility], [place], [place] [phone] [facility], [place]: [phone], [place]: [phone] [place], [place]: [phone] [facility], [place]: [phone], [place]: [phone] [facility]: [phone]; [place]: [phone] [facility] HospitalBALJEET (Emphasis on minorities): https://www.Compact Media GroupronForkforceop.LightCyber, [place], [place] [phone] [facility] SERVICES: Jarred Caruso & [place]ela[place], [place]: [phone] [place] Mervin Schultz PlazaFL[place], [place] [phone] [facility], [place], [place] [phone] [facility] [phone] [facility] SERVICES: One [address]y (180): [place], [place] [phone] [employer] & [place]: [phone] RESIDENTIAL TREATMENT FACILITIES: [facility] [place], [place] [phone] (admission coordinated by -Tea Landers ext [phone]) [facility] [place]: [phone]; Men's services inpt. & women services -Outpt. [place], [place] [phone] Ramar [facility], [place], [place] [phone] [address] [facility], [place], [place] [phone] [facility], [place], [place] [phone] [facility] [place], [place] [phone] [facility], [place], [place] [phone] [facility] - [place], [place] [phone] [facility], [place], [place]-[facility], [facility] [phone] Sikh [facility] CenterSkemA - Peer Bed And Breakfast Operator service: [phone] [facility]: [phone] ext. [phone] Medicaid Health Coverage: NuvoMed [facility] Hospital[facility]: [phone] Larry Avila RN 11/27/23 2318 * Larry Avila RN - 11/27/2023 11:08 PM EDT Detox rules read and signed by patient. Witnessed by this RN. Larry Avila RN 11/27/23 2307 * Steve Demarco MD - 11/27/2023 8:21 [...] period of sobriety while he was in assisted although appears that his last time in [...] withdrawal, with unspecified complication (HCC) 10/02/2019 Alcoholism ([facility]/HCC) (HCC) Anxiety Arthritis Maria De Jesus Cerebral artery occlusion with cerebral infarction (HCC) Cerebrovascular disease Depression GERD (gastroesophageal reflux disease) Maria De Jesus Hypertension Insomnia SURGICAL HISTORY Past Surgical History: Procedure Laterality Date COLONOSCOPY 06/10/2020 EGD/Dr Madison/Janis CYST REMOVAL face EGD (HISTORICAL) 07/23/2022 Dr. Estrella-[facility] SMALL INTESTINE SURGERY UPPER GASTROINTESTINAL ENDOSCOPY [...] Depression Sister Maria De Jesus Hogan Other ([id number]) Sister Maria De Jesus Hogan agoraphobia Arthritis Sister Maria De Jesus Hogan Cancer Mother Maria De Jesus Hogan colon rectal cancer; dx after age 50 Other ([id number]) Mother Maria De Jesus Hogan alcoholism Alcohol abuse Mother Maria De Jesus Hogan Stroke Mother Maria De Jesus Hogan Other ([id number]) Father Maria De Jesus Hogan h/o rheumatic [...] 0 min Stress: Stress Concern Present (07/28/2023) [employer] Marshall of Occupational Health - Occupational Stress Questionnaire Feeling of Stress : To some extent Social Connections: Moderately Isolated (07/28/2023) Social Connection and Isolation Panel [NHANES] Frequency of Communication with Friends and Family: Twice a week Frequency of Social Gatherings with Friends and Family: Once a week Attends Hinduism Services: Never Active Member of Clubs or [...] Housing in the Last Year: No SCREENINGS [place] Coma Scale Best Eye Response: Spontaneous Best [...] Procedure Abnormality Status --------- ------ Basic metabolic panel[[id number]] Abnormal Final result Please view results for [...] PATIENT REFERRED TO: Lynda Rasheed MD [address] [facility] [address] [facility] [address] DISCHARGE MEDICATIONS: Discharge Medication List as of [...] Demarco MD (electronically signed) Emergency Medicine Provider [facility] Steve Demarco MD 11/30/23 1518 * Val Fragoso MD - 11/27/2023 8:21 PM EDT Emergency Department Encounter Location: [facility] ED Patient: Maria De Jesus Hogan : 1965 Date of evaluation: 11/27/2023 ED Provider: Val Fragoso MD 45[address] Maria De Jesus Hogan was checked out [...] did have a period ofsobriety while in assisted. He states earlier in the ER he [...] are mis-transcribed.) Val Fragoso MD Acute Care [facility] Val Fragoso MD 11/28/23 0515 documented in this [facility]08-29-2024 Emergency department Note* Gris Dillon RN - 11/28/2023 2:59 PM EDT O2 turned up to 4L NC due to low saturation in 70's while sleeping Gris Dillon RN 11/28/23 1500 [address] StreetSpyjnw65-82-9045 Emergency department Note* Gris Dillon RN - 11/28/2023 2:00 PM EDT 2L NC applied due to O2 sat in 80's while sleeping Gris Dillon RN 11/28/23 [address] [place] [id number] Consult note* Luis Branch MD - 11/28/2023 [...] but Pt cannot recall where. Detoxifications: x1 [facility] (per Pt). 12 Step Meetings: Has [...] CYST REMOVAL face EGD (HISTORICAL) 07/23/2022 Dr. Estrella-[facility] SMALL INTESTINE SURGERY UPPER GASTROINTESTINAL ENDOSCOPY 09/27/2021 normal WISDOM TOOTH EXTRACTION Family History Family History Problem Relation Name Age of Onset Depression Sister Maria De Jesus Hogan Other ([id number]) Sister Maria De Jesus Hogan agoraphobia Arthritis Sister Maria De Jesus Hogan Cancer Mother Maria De Jesus Hogan colon rectal cancer; dx after age 50 Other (73034) Mother Maria De Jesus Hogan alcoholism Alcohol abuse Mother Maria De Jesus Hogan Stroke Mother Maria De Jesus Hogan Other ([id number]) Father Maria De Jesus Hogan h/o rheumatic [...] 0 min Stress: Stress Concern Present (07/28/2023) [employer] of Occupational Health - Occupational Stress Questionnaire Feeling of Stress : To some extent Social Connections: Moderately Isolated (07/28/2023) Social Connection and Isolation Panel [NHANES] Frequency of Communication with Friends and Family: Twice a week Frequency of Social Gatherings with Friends and Family: Once a week Attends Hinduism Services: Never Active Member of Clubs or [...] Year: No Utilities: Not At Risk (07/28/2023) [facility] Utilities Threatened with loss of utilities: No [...] significant changes compared to 07/27/2023 Electronically Signed [id number] 04:56:24 EDT by [employer] Recent Results (from the past 48 hour(s)) [...] 338 ms QTC Interval 463 ms P [place] 77 degrees QRS [place] 85 degrees T Wave [place] 56 degrees [place] Interval 158 ms CBC auto differential Collection [...] symptoms. Medical stabilization. Labs/tests/tasks to review: None. Case Filler to coordinate care with aftercare program. Will [...] clinical information on the day of visit. [facility] HospitalZkbdhj84-66-5729 Consult note* Luis Branch MD - 11/28/2023 [...] but Pt cannot recall where. Detoxifications: x1 [facility] (per Pt). 12 Step Meetings: Has [...] CYST REMOVAL face EGD (HISTORICAL) 07/23/2022 Dr. Estrella-[facility] SMALL INTESTINE SURGERY UPPER GASTROINTESTINAL ENDOSCOPY 09/27/2021 normal WISDOM TOOTH EXTRACTION Family History Family History Problem Relation Name Age of Onset Depression Sister Maria De Jesus Hogan Other (93068) Sister Maria De Jesus Hogan agoraphobia Arthritis Sister Maria De Jesus Hogan Cancer Mother Maria De Jesus Hogan colon rectal cancer; dx after age 50 Other ([id number]) Mother Maria De Jesus Hogan alcoholism Alcohol abuse Mother Mraia De Jesus Hogan Stroke Mother Maria De Jesus Hogan Other (05957) Father Maria De Jesus Hogan h/o rheumatic [...] 0 min Stress: Stress Concern Present (07/28/2023) [employer] of Occupational Health - Occupational Stress Questionnaire Feeling of Stress : To some extent Social Connections: Moderately Isolated (07/28/2023) Social Connection and Isolation Panel [NHANES] Frequency of Communication with Friends and Family: Twice a week Frequency of Social Gatherings with Friends and Family: Once a week Attends Hinduism Services: Never Active Member of Clubs or [...] Year: No Utilities: Not At Risk (07/28/2023) [facility] Utilities Threatened with loss of utilities: No [...] significant changes compared to 07/27/2023 Electronically Signed [id number] 04:56:24 EDT by Val BRADSHAW Recent Results [...] 338 ms QTC Interval 463 ms P [place] 77 degrees QRS [place] 85 degrees T Wave [place] 56 degrees [place] Interval 158 ms CBC auto differential Collection [...] symptoms. Medical stabilization. Labs/tests/tasks to review: None. Case Filler to coordinate care with aftercare program. Will [...] the day of visit. documented in this [facility]08-29-2024 History and physical note* Shelly Cruz MD - 11/28/2023 1:58 AM EDT History and Physical [facility] Maria De Jesus Hogan : 1965 AGE [...] CYST REMOVAL face EGD (HISTORICAL) 07/23/2022 Dr. Estrella-[facility] SMALL INTESTINE SURGERY UPPER GASTROINTESTINAL ENDOSCOPY [...] Depression Sister Maria De Jesus Hogan Other (18726) Sister Maria De Jesus Hogan agoraphobia Arthritis Sister Maria De Jesus Hogan Cancer Mother Maria De Jesus Hogan colon rectal cancer; dx after age 50 Other (49559) Mother Maria De Jesus Hogan alcoholism Alcohol abuse Mother Maria De Jesus Hogan Stroke Mother Maria De Jesus Hogan Other (66521) Father Maria De Jesus Hogan h/o rheumatic [...] mechanical contraindicated 11/28/2023 Maria De Jesus [place] [id number] Any scheduled follow up appointments Future Appointments Date Time Provider Department Center 12/17/2023 3:00 PM Lynda Rasheed MD [facility] Extended Emergency Contact Information Primary Emergency Contact: Mobile Relation: Spouse Portions of this note may be electronically transcribed. Please forward a copy of this H&P to the primary care physician. [facility] [place] Work Phone: [phone] 928-224708-29-2024 [facility]08-29-2024 History and physical note* Shelly Cruz MD - 11/28/2023 1:58 AM EDT History and Physical [facility] Maria De Jesus [place] : 1965 AGE [...] CYST REMOVAL face EGD (HISTORICAL) 07/23/2022 Dr. Estrella-[facility] SMALL INTESTINE SURGERY UPPER GASTROINTESTINAL ENDOSCOPY [...] Depression Sister Maria De Jesus Hogan Other (17694) Sister Maria De Jesus Hogan agoraphobia Arthritis Sister Maria De Jesus Hogan Cancer Mother Maria De Jesus Hogan colon rectal cancer; dx after age 50 Other ([id number]) Mother Maria De Jesus Hogan alcoholism Alcohol abuse Mother Maria De Jesus Hogan Stroke Mother Maria De Jesus Hogan Other (14612) Father Maria De Jesus Hogan h/o rheumatic [...] mechanical contraindicated 11/28/2023 Maria De Jesus Hogan [id number] Any scheduled follow up appointments Future Appointments Date Time Provider Department Center 12/17/2023 3:00 PM Lynda Rasheed MD [facility] Extended Emergency Contact Information Primary Emergency Contact: Samira Mobile Relation: Spouse Portions of this note may be electronically transcribed. Please forward a copy of this H&P to the primary care physician. documented in this [facility]08-29-2024 Nurse Note* Larry Avila RN - 11/28/2023 [...] ppd of tobacco. [facility]. Is actually not allowed back on the detox unit at [facility] because of some incident that occurred in [...] with his . 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 Has a valid ID. is able to transport patient because he does not currently drive. [place] for health insurance coverage. Plan is to admit patient medically for detox at [facility]. Would also recommend that patient follow up with IOP on discharge. Patient seemed interested in Vivitrol. Patient provided with a list of treatment re sources in addition to First Step, IOP, Vivitrol, and [facility] And Breakfast Operator Service pamphlets. [facility] HospitalUannhg59-31-9952 NoteNOTE: This result is for medical treatment only. Analysis performed using non-forensic procedures. [facility] HospitalHsjdzd31-68-8162 Emergency department Note* Larry Avila RN - 11/27/2023 11:16 PM EDT The following are the next steps in your Substance use Treatment Plan: Get admitted to detox then Vivitrol, IOP, and therapy afterwards. Please make sure you follow up after getting discharged from the hospital. Below are additional resources that you may find beneficial in your treatment: 12-Step: Heroin Anonymous : Dayne Gray: [phone], Luis Fernando Cloud: [phone] Narcotics Anonymous: 888-GET_HOPE ([phone]) Atreaone.org Alcohol Anonymous: akronaa.org Cocaine Anonymous: https://www.[facility] Partners[facility].org/meetings/akelizamemarino, [place]: [phone]: 12-step program for families & friends of people with addiction. CRISIS: Homeless Hotline: 760.743.6091 Domestic Violence help line anytime: 237.352.2437 Crisis Hotline: 842.529.4730 [facility] Addiction Helpline: 415.413.7263 (available 8:30 AM to 4:00 PM ) helps people across [facility] find local resources when they don't know where to turn forhelp. We are available 24 hours a day, 7 days a week. For help, simply dial to speak to one of our trained professionals. METHADONE TREATMENT: [facility], [place] [phone] [place] [facility] [place], [place] [phone] [facility], [place] [phone] [facility] [place] [phone] [facility] [place]- [phone] ext. [phone] [facility] (Rc)- [phone] DETOX TREATMENT: [facility] Crisis Center: anytime @ [phone] for alcohol & drug addiction help. [facility], [place] [phone] [facility] coordination: [phone] (Medicare not accepted) [facility] [place]: [phone] (Reserve Medicaid not accepted) [facility] [place]: [phone] (Reserve Medicaid not accepted) [place], [place]: [phone] (Will Coordinate Transportation) [facility] [place]: [phone] [place], [place]: [phone], [facility] [place]: [phone] [place], [place] [phone] [facility] [place]: [phone] (Will Coordinate Transportation) [place], [place] [phone] ext. [phone] [place], [place] (pt. must be medically cleared prior to admission in ED) [place], [place] [phone] [place], [place]: [phone] (Reserve Medicaid not accepted) [facility] [place] [phone] (Will Coordinate Transportation) [phone] OUTPATIENT TREATMENT: [facility] Addiction Medicine @ [facility] [place] [phone] [facility]: Inpatient or Outpatient- [phone] 1st Step MAT Program @ [facility] ED: [phone] 1st Step MAT Program @ [facility] ED: [phone] 1st Step MAT Program @ [facility] ED: [phone], INTENSIVE OUTPATIENT PROGRAMS @ [place], [place] [phone] [place], [place] [phone] [place], [place] [phone] [place], [place] [phone] [facility]: [phone] [facility], [place], [place] [phone] [facility], [place]: [phone], [facility]: [phone] [place], [place]: [phone] [facility], [place]: [phone], [facility]: [phone] [facility]: [phone]; [facility]: [phone] [facility] (Emphasis on minorities): https://www.[employer], [place], [place] [phone] [facility] SERVICES: Jarred Caruso & [place], [place]: [phone] [place], [place] [phone] [facility], [place], [place] [phone] [facility] [phone] [facility] SERVICES: [employer] (180): KADEN Bland [phone] [employer] [facility] [place]: [phone] RESIDENTIAL TREATMENT FACILITIES: [facility] [place], [place] [phone] (admission coordinated by -Tea Landers ext [phone]) [facility] [place], [place]: [phone]; Men's services inpt. & women services -Outpt. [place], [place] [phone] [facility], [place], [place] [phone] [facility] [place], [place] [phone] [place], [place] [phone] [facility] [place], [place] [phone] [facility] [place], [place] [phone] [facility] - [place], [place] [phone] [facility], [place], [place]-PHP, [facility] [phone] [employer] - [employer] Operator service: [phone] [facility]: [phone] ext. [phone] Medicaid Health Coverage: thesweetlink JFS: [phone] Larry Avila RN 11/27/[address] [facility] HospitalLxmolr80-98-2899 Emergency department Note* Larry Avila RN - 11/27/2023 11:08 PM EDT Detox rules read and signed by patient. Witnessed by this RN. Larry Avila RN 11/27/23 0818 [place] [id number] Physician Emergency department Note* Steve Demarco MD [...] period of sobriety while he was in assisted although appears that his last time in [...] CYST REMOVAL face EGD (HISTORICAL) 07/23/2022 Dr. Estrella[facility] SMALL INTESTINE SURGERY UPPER GASTROINTESTINAL ENDOSCOPY [...] Depression Sister Maria De Jesus Hogan Other ([id number]) Sister Maria De Jesus Hogan agoraphobia Arthritis Sister Maria De Jesus Hogan Cancer Mother Maria De Jesus Hogan colon rectal cancer; dx after age 50 Other (74076) Mother Maria De Jesus Hogan alcoholism Alcohol abuse Mother Maria De Jesus Hogan Stroke Mother Maria De Jesus Hogan Other (86058) Father Maria De Jesus Hogan h/o rheumatic [...] 0 min Stress: Stress Concern Present (07/28/2023) [employer] Occupational Health - Occupational Stress Questionnaire Feeling of Stress : To some extent Social Connections: Moderately Isolated (07/28/2023) Social Connection and Isolation Panel [NHANES] Frequency of Communication with Friends and Family: Twice a week Frequency of Social Gatherings with Friends and Family: Once a week Attends Hinduism Services: Never Active Member of Clubs or [...] Procedure Abnormality Status --------- ------ Basic metabolic panel[[id number]] Abnormal Final result Please view results for [...] PATIENT REFERRED TO: Lynda Rasheed MD [address] [facility] [address] [facility] [address] DISCHARGE MEDICATIONS: Discharge Medication List as of [...] Demarco MD (electronically signed) Emergency Medicine Provider [facility] Steve Demarco MD 11/30/23 1518 [employer] Phone: [phone] 848-805608-28-2024 Physician Emergency department Note* Val Fragoso MD - 11/27/2023 8:21 PM EDT Emergency Department Encounter Location: [facility] ED Patient: Maria De Jesus Hogan : 1965 Date of evaluation: 11/27/2023 ED Provider: Val Fragoso MD 9954 Maria De Jesus Hogan was checked out [...] did have a period ofsobriety while in assisted. He states earlier in the ER he [...] 97.2 mg (97.2 mg Oral Given 11/27/23 834) Final Impression 1. 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 Efforts were made to edit the dictations but occasionally words are mis-transcribed.) Val Fragoso MD Acute Care [facility] Val Fragoso MD 11/28/[address] [facility] HospitalBjvoxc89-13-9255 Telephone encounter Note* Telephone Encounter - Lynda Rasheed MD - 08/01/2023 1:47 PM EDT Go ahead and send the prescriptions. However no further refills until patient is evaluated. We schedule an appointment with him. If unable to come in person I will okay him doing a virtual. Please pend the scripts needed refilled please [facility] [id number] Miscellaneous Notes* Telephone Encounter - Lynda Rasheed MD - 08/01/2023 1:47 PM EDT Go ahead and send the prescriptions. However no further refills until patient is evaluated. We schedule an appointment with him. If unable to come in person I will okay him doing a virtual. Please pend the scripts needed refilled please documented in this encounterSumma [id number] History of Present illness Narrative* Lauren Irby [...] needs known. * Robyn Edmond APRN - ROTOPRINTER - 07/30/2023 5:20 PM EDT Addiction Team Progress Note July 30, 2023Saturday ACTIVE PROBLEMS: Alcohol Dependence Alcohol Withdrawal When seen, awake fully oriented to person, place, time, situation; coherent, lucid Euthymic mood with congruent affect Talked with me re: desire for discharge tomorrow; Says he needs to return to work to avoid termination Says he has leny't for Intensive Outpt Program at [facility] and is open to attending AA meetings, [...] Ortiz RCP - 07/30/2023 9:29 AM EDT [facility] Department Progress Note As part [...] - labs/tests/tasks to review: none Recovery plan: INTEGRATED LOGISTICS PROGRAMS DIRECTOR plan for further addiction treatment at [facility] JUAN Rothman NP Addiction Medicine 07/29/2023 at 1:24 PM Note: Narrative portions of note written using Or[employer] dictation software. Efforts are made to dictate [...] assigned a level 1. documented in this encounterSKeenan Private [id number] Note* Care Coordination - BENNIE Solis - 07/31/2023 12:53 PM EDT Patient to be overheard in another patient's room discussing their treatment plans and aftercare. Patient providing his own recommendations on MAT services for patient despite not knowing patient's medical history of [place]. Patient has been informed to not involve himself in other patients care or be intrusive with treatment plans. Patient then came to INTEGRATED LOGISTICS PROGRAMS DIRECTOR's office while she was talking to resident. Patient begins to ask questions about leaving AMA. INTEGRATED LOGISTICS PROGRAMS DIRECTOR noted that patient is already being discharged and why would he inquire about leaving AMA. Patient did acknowledge that he was asking questions for another patient. INTEGRATED LOGISTICS PROGRAMS DIRECTOR explained to patient again that he needs to not involve himself with other patients aftercare plans and that she cannot discuss other patients medical care with him at current time. Patient then leaves INTEGRATED LOGISTICS PROGRAMS DIRECTOR's office and is overheard in another patient's room discussing information with her which was inappropriate. Patient that he was discussing with became distraught crying and yelling from her room. All information shared with nurse practitioner. [facility] HospitalYcfehr78-87-4673 Note* Care Coordination - BENNIE Solis - 07/31/2023 12:53 PM EDT Patient to be overheard in another patient's room discussing their treatment plans and aftercare. Patient providing his own recommendations on MAT services for patient despite not knowing patient's medical history of [place]. Patient has been informed to not involve himself in other patients care or be intrusive with treatment plans. Patient then came to INTEGRATED LOGISTICS PROGRAMS DIRECTOR's office while she was talking to resident. Patient begins to ask questions about leaving AMA. INTEGRATED LOGISTICS PROGRAMS DIRECTOR noted that patient is already being discharged and why would he inquire about leaving AMA. Patient did acknowledge that he was asking questions for another patient. INTEGRATED LOGISTICS PROGRAMS DIRECTOR explained to patient again that he needs to not involve himself with other patients aftercare plans and that she cannot discuss other patients medical care with him at current time. Patient then leaves INTEGRATED LOGISTICS PROGRAMS DIRECTOR's office and is overheard in another patient's room discussing information with her which was inappropriate. Patient that he was discussing with became distraught crying and yelling from her room. All information shared with nurse practitioner. [facility] [id number] Miscellaneous Notes* Care Coordination - BENNIE Solis - 07/31/2023 12:53 PM EDT Patient to be overheard in another patient's room discussing their treatment plans and aftercare. Patient providing his own recommendations on MAT services for patient despite not knowing patient's medical history of [place]. Patient has been informed to not involve himself in other patients care or be intrusive with treatment plans. Patient then came to INTEGRATED LOGISTICS PROGRAMS DIRECTOR's office while she was talking to resident. Patient begins to ask questions about leaving AMA. INTEGRATED LOGISTICS PROGRAMS DIRECTOR noted that patient is already being discharged and why would he inquire about leaving AMA. Patient did acknowledge that he was asking questions for another patient. INTEGRATED LOGISTICS PROGRAMS DIRECTOR explained to patient again that he needs to not involve himself with other patients aftercare plans and that she cannot discuss other patients medical care with him at current time. Patient then leaves INTEGRATED LOGISTICS PROGRAMS DIRECTOR's office and is overheard in another patient's room discussing information with her which was inappropriate. Patient that he was discussing with became distraught crying and yelling from her room. All information shared with nurse practitioner. * Care Coordination - BENNIE Solis - 07/31/2023 12:05 PM EDT INTEGRATED LOGISTICS PROGRAMS DIRECTOR saw patient to discuss aftercare plans and treatment post discharge. Patient was reminded aboutfollow-up with [facility] 08/05/2023 at 1 PM. Patient still agreeable to aftercare plans. Patient denied current SI/HI/AVH. Patient reported that their would be picking them up from the hospital and taking them back home. Patient denied needing anything further from INTEGRATED LOGISTICS PROGRAMS DIRECTOR at the time. INTEGRATED LOGISTICS PROGRAMS DIRECTOR inform ed patient's nurse about conversation. * Care Coordination - BENNIE Solis - 07/31/2023 12:03 PM EDT While attempting to talk to another patient about discharge and aftercare plans this patient decided to stop in the hallway as well and attempt to listen to and engage in conversation about another patient's healthcare treatment and plans. INTEGRATED LOGISTICS PROGRAMS DIRECTOR explained to this patient that his need to involve himself and other patient's care was inappropriate and that he should continue to work his way to the other end of the hallway. Patient moved to the other end of the hallway as directed by INTEGRATED LOGISTICS PROGRAMS DIRECTOR. * Group Note - Aurora Camarena - [...] Jesus Hogan Date of : 1965 MR: [id number] Appearance: Good eye contact Affect: Appropriate Behavior: [...] Camarena - 07/30/2023 6:00 PM EDT Department: [employer] ACTIVITIES THERAPY Group Topic: Other Group Date: [...] Jesus Hogan Date of : 1965 MR: [id number] Appearance: Good eye contact Affect: Appropriate Behavior: [...] - 07/30/2023 9:33 AM EDT Patient approached INTEGRATED LOGISTICS PROGRAMS DIRECTOR asking for assistance with scheduling IOP. Patient reports interest IOP at [facility]. INTEGRATED LOGISTICS PROGRAMS DIRECTOR will assist with scheduling appointment. INTEGRATED LOGISTICS PROGRAMS DIRECTOR called and scheduled patient for intake assessment at [facility] 08/05/2023 at 1:00pm. All information included [...] 2023 with plans to engage at the [facility], patient reports however he did not [...] He has [facility] [place] [facility]. Patient has [...] as an adult. Patient denies any history [place] or status. Family Constellation/Childhood History: Patient reports that he is currently to his living in [facility]. Patient reports that he has 3 biological children and 4 stepchildren. Patient reports that his father in his 11 years old. Patient did not report his mother is stillalive currently. Patient was born and raised in [place], [place] by his mother and father. 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 Patient denies SSI/SSD. Cultural/Spirituality/Leisure: Patient denies any cultural needs or concerns at the current time. Patient denies identify any hinduism preference. It is unknown if patient is [...] declined aftercare assistance while on the unit. INTEGRATED LOGISTICS PROGRAMS DIRECTOR will continue to work with patient to identify aftercare plans. Patient encouraged to engage in all activities thatare offered to them while they are on the unit. Patient report needing additional current time. Patient encouraged to seek out INTEGRATED LOGISTICS PROGRAMS DIRECTOR unit staff should they identify any additional [...] dictating provider for clarification. documented in this [facility]05-01-2024 Note* Care Coordination - BENNIE Solis - 07/31/2023 12:05 PM EDT INTEGRATED LOGISTICS PROGRAMS DIRECTOR saw patient to discuss aftercare plans and treatment post discharge. Patient was reminded aboutfollow-up with Lai OROZCO 08/05/2023 at 1 PM. Patient still agreeable to aftercare plans. Patient denied current SI/HI/AVH. Patient reported that their would be picking them up from the hospital and taking them back home. Patient denied needing anything further from [facility] at the time. INTEGRATED LOGISTICS PROGRAMS DIRECTOR inform ed patient's nurse about conversation. [facility] [id number] Note* Care Coordination - BENNIE Solis - 07/31/2023 12:05 PM EDT INTEGRATED LOGISTICS PROGRAMS DIRECTOR saw patient to discuss aftercare plans and treatment post discharge. Patient was reminded aboutfollow-up with Lai OROZCO 08/05/2023 at 1 PM. Patient still agreeable to aftercare plans. Patient denied current SI/HI/AVH. Patient reported that their would be picking them up from the hospital and taking them back home. Patient denied needing anything further from INTEGRATED LOGISTICS PROGRAMS DIRECTOR at the time. INTEGRATED LOGISTICS PROGRAMS DIRECTOR inform ed patient's nurse about conversation. [facility] [id number] Note* Care Coordination - BENNIE Solis - 07/31/2023 12:03 PM EDT While attempting to talk to another patient about discharge and aftercare plans this patient decided to stop in the hallway as well and attempt to listen to and engage in conversation about another patient's healthcare treatment and plans. INTEGRATED LOGISTICS PROGRAMS DIRECTOR explained to this patient that his need to involve himself and other patient's care was inappropriate and that he should continue to work his way to the other end of the hallway. Patient moved to the other end of the hallway as directed by INTEGRATED LOGISTICS PROGRAMS DIRECTOR. [facility] [id number] Note* Care Coordination - BENNIE Solis - 07/31/2023 12:03 PM EDT While attempting to talk to another patient about discharge and aftercare plans this patient decided to stop in the hallway as well and attempt to listen to and engage in conversation about another patient's healthcare treatment and plans. INTEGRATED LOGISTICS PROGRAMS DIRECTOR explained to this patient that his need to involve himself and other patient's care was inappropriate and that he should continue to work his way to the other end of the hallway. Patient moved to the other end of the hallway as directed by INTEGRATED LOGISTICS PROGRAMS DIRECTOR. [facility] [id number] Group counseling note* Group Note - Aurora Camarena - 07/31/2023 11:56 AM EDT Department: [facility] ACTIVITIES THERAPY Group Topic: Other Group Date: [...] experience of participation. Name: Maria De Jesus Hogna Date of : 1965 MR: [id number] Appearance: Good eye contact Affect: Appropriate Behavior: [...] Conversion reaction BPH (benign prostatic hyperplasia) Tachycardia [facility] [id number] Nurse Note* Lauren Irby RN - 07/31/2023 [...] denies SI/HI/AVH.Patient left unit ambulatory with staff. [facility] [id number] Nurse Note* Lauren Irby RN - 07/31/2023 [...] 07/27/2023 11:23 PM EDT Pt arrived from [facility] via cart with squad and security at [...] monitor pt for safety. documented in this [facility]05-01-2024 Hospital course Narrative* Tiki Ponce, JUAN - QUILL COLLECTOR - 07/31/2023 9:06 AM EDT Addiction Medicine [...] pm received a call from nurse and INTEGRATED LOGISTICS PROGRAMS DIRECTOR, Patient began going in other patient's room [...] 358 ms QTC Interval 461 ms P [place] 66 degrees QRS [place] 68 degrees T Wave [place] 46 degrees [place] Interval 156 ms Discharge Medication List Medication [...] given to pursue chemical dependency treatment at: [facility] The patient was also instructed to: [...] Note: Narrative portions of note written using Orca [employer] dictation software. Efforts are made to dictate clearly and proofread but errors in dictation still may occur. Please reach out to author with any clarifying questions. Associated attestation - Jonatan Mckeon MD - 07/31/2023 4:30 PM EDT I have reviewed the documented history, ROS, physical exam, and decision making and agree. Jonatan Mckeon MD documented in this [facility]04-30-2024 Group counseling note* Group Note - Aurora Camarena - 07/30/2023 6:00 PM EDT Department: [facility] ACTIVITIES THERAPY Group Topic: Other Group Date: [...] Jesus Hogan Date of : 1965 MR: [id number] Appearance: Good eye contact Affect: Appropriate Behavior: [...] Conversion reaction BPH (benign prostatic hyperplasia) Tachycardia [facility] [id number] Note* Care Coordination - BENNIE Solis - 07/30/2023 9:33 AM EDT Patient approached INTEGRATED LOGISTICS PROGRAMS DIRECTOR asking for assistance with scheduling IOP. Patient reports interest IOP at [facility]. INTEGRATED LOGISTICS PROGRAMS DIRECTOR will assist with scheduling appointment. INTEGRATED LOGISTICS PROGRAMS DIRECTOR called and scheduled patient for intake assessment at [facility] 08/05/2023 at 1:00pm. All information included inpatient's discharge paperwork. Electronically signed by BENNIE Solis on07/30/2023 at 9:[address] [facility] HospitalZexzln40-03-2827 Note* Care Coordination - BENNIE Solis - 07/30/2023 9:33 AM EDT Patient approached INTEGRATED LOGISTICS PROGRAMS DIRECTOR asking for assistance with scheduling IOP. Patient reports interest IOP at [facility]. INTEGRATED LOGISTICS PROGRAMS DIRECTOR will assist with scheduling appointment. INTEGRATED LOGISTICS PROGRAMS DIRECTOR called and scheduled patient for intake assessment at [facility] 08/05/2023 at 1:00pm. All information included inpatient's discharge paperwork. Electronically signed by BENNIE Solis on07/30/2023 at 9:[address] [facility] [id number] Plan of care note* Care Plan - Tracy Davies RN - 07/29/2023 11:58 AM EDT Problem: Potential for Substance Withdrawal Goal: Verbalizes signs/symptoms of withdrawal Outcome: Progressing Goal: Reports signs/symptoms of withdrawal Outcome: Progressing Goal: Free of withdrawal symptoms Outcome: Progressing Problem: Drug Abuse/Detox Goal: Will have no detox symptoms and will verbalize plan for changing drug- related behavior Outcome: Progressing [facility]Whoiul08-07-8302 Hospital Discharge instructions* Discharge Instr - Other [...] National Suicide Prevention Hotline if needed at: 0-013-180-SCOH (0468) Please call the following number should you have questions regarding your discharge or aftercare appointments: [facility] documented in this [facility]04-29-2024 Note* Care Coordination - BENNIE Solis - [...] 2023 with plans to engage at the [facility], patient reports however he did not [...] He [facility] [place] [facility] mental health treatment. Patient has [...] as an adult. Patient denies any history [place] or status. Family Constellation/Childhood History: Patient reports that he is currently to his living in [facility]. Patient reports that he has 3 biological children and 4 stepchildren. Patient reports that his father in his 9 years old. Patient did not report his mother is stillalive currently. Patient was born and raised in [place], [place] by his mother and father. 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 Patient denies SSI/SSD. Cultural/Spirituality/Leisure: Patient denies any cultural needs or concerns at the current time. Patient denies identify any hinduism preference. It is unknown if patient is [...] declined aftercare assistance while on the unit. [facility] will continue to work with patient to identify aftercare plans. Patient encouraged to engage in all activities thatare offered to them while they are on the unit. Patient report needing additional current time. Patient encouraged to seek out [facility] unit staff should they identify any additional [...] to contact the dictating provider for clarification. [id number] Note* Care Coordination - BENNIE Solis - [...] 2023 with plans to engage at the [facility], patient reports however he did not [...] He has previous history of engagement with [facility] in [place] for outpatient mental health treatment. Patient has [...] as an adult. Patient denies any history [place] or status. Family Constellation/Childhood History: Patient reports that he is currently to his living in [facility]. Patient reports that he has 3 biological children and 4 stepchildren. Patient reports that his father in his 11 years old. Patient did not report his mother is stillalive currently. Patient was born and raised in [place], [place] by his mother and father. 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 Patient denies SSI/SSD. Cultural/Spirituality/Leisure: Patient denies any cultural needs or concerns at the current time. Patient denies identify any hinduism preference. It is unknown if patient is [...] declined aftercare assistance while on the unit. INTEGRATED LOGISTICS PROGRAMS DIRECTOR will continue to work with patient to identify aftercare plans. Patient encouraged to engage in all activities thatare offered to them while they are on the unit. Patient report needing additional current time. Patient encouraged to seek out INTEGRATED LOGISTICS PROGRAMS DIRECTOR unit staff should they identify any additional [...] to contact the dictating provider for clarification. [facility] [id number] Nurse Note* Kristina Hampton RN - 07/28/2023 [...] in condition. Will monitor pt for safety. [id number] Nurse Note* Lauren Irby RN - 07/28/2023 [...] PRN Vistaril for anxiety. Will monitor effectiveness. [facility] [id number] History and physical note* JUAN Hill NP [...] 07/11/2023 with plans of going to the [facility]. Patient reports that he never scheduled [...] a history of chemical dependency treatment at [facility] at [facility]. Patient has a history of psychiatric [...] 0 min Stress: Stress Concern Present (07/28/2023) [employer] - Occupational Stress Questionnaire Feeling of Stress : To some extent Social Connections: Moderately Isolated (07/28/2023) Social Connection and Isolation Panel [NHANES] Frequency of Communication with Friends and Family: Twice a week Frequency of Social Gatherings with Friends and Family: Once a week Attends Hinduism Services: Never Active Member of Clubs or [...] CYST REMOVAL face EGD (HISTORICAL) 07/23/2022 Dr. Estrella-[facility] SMALL INTESTINE SURGERY UPPER GASTROINTESTINAL ENDOSCOPY 09/27/2021 normal WISDOM TOOTH EXTRACTION Family History Problem Relation Name Age of Onset Depression Sister Maria De Jesus Hogan Other ([id number]) Sister Maria De Jesus Hogan agoraphobia Arthritis Sister Maria De Jesus Hogan Cancer Mother Maria De Jesus Hogan colon rectal cancer; dx after age 50 Other ([id number]) Mother Maria De Jesus Hogan alcoholism Alcohol abuse Mother Maria De Jesus Hogan Stroke Mother Maria De Jesus Hogan Other ([id number]) Father Maria De Jesus Hogan h/o rheumatic [...] 358 ms QTC Interval 461 ms P [place] 66 degrees QRS [place] 68 degrees T Wave [place] 46 degrees [place] Interval 156 ms CBC auto differential Collection [...] participate in all unit activities. Recovery plan: INTEGRATED LOGISTICS PROGRAMS DIRECTOR to assist with aftercare treatment options: Will explore treatment options JUAN Rothman NP Addiction Medicine 07/28/2023 at 11:11 AM Note: Narrative portions of note written using [employer] dictation software. Efforts are made to dictate clearly and proofread but errors in dictation still may occur. Please reach out to author with any clarifying questions. [facility] [id number] History and physical note* JUAN Hill NP - 07/28/2023 8:15 AM EDT Addiction Medicine Detox Unit H&P Patient: Maria De Jesus Hogan Admit Date: 07/27/2023 Primary Care Physician: Lynda Rasheed MD Chief Complaint Patient presents with Alcohol Intoxication History of Present Illness Maria eD Jesus Hogan is a 57 y.o. year [...] 07/11/2023 with plans of going to the [facility]. Patient reports that he never scheduled [...] a history of chemical dependency treatment at [facility] at [facility]. Patient has a history of psychiatric [...] 0 min Stress: Stress Concern Present (07/28/2023) [employer] - Occupational Stress Questionnaire Feeling of Stress : To some extent Social Connections: Moderately Isolated (07/28/2023) Social Connection and Isolation Panel [NHANES] Frequency of Communication with Friends and Family: Twice a week Frequency of Social Gatherings with Friends and Family: Once a week Attends Hinduism Services: Never Active Member of Clubs or [...] CYST REMOVAL face EGD (HISTORICAL) 07/23/2022 Dr. Estrella-[facility] SMALL INTESTINE SURGERY UPPER GASTROINTESTINAL ENDOSCOPY 09/27/2021 normal WISDOM TOOTH EXTRACTION Family History Problem Relation Name Age of Onset Depression Sister Maria De Jesus Hogan Other ([id number]) Sister Maria De Jesus Hogan agoraphobia Arthritis Sister Maria De Jesus Hogan Cancer Mother Maria De Jesus Hogan colon rectal cancer; dx after age 50 Other ([id number]) Mother Maria De Jesus Hogan alcoholism Alcohol abuse Mother Maria De Jesus Hogan Stroke Mother Maria De Jesus Hogan Other ([phone]) Father Maria De Jesus Hogan h/o rheumatic [...] 358 ms QTC Interval 461 ms P [place] 66 degrees QRS [place] 68 degrees T Wave [place] 46 degrees [place] Interval 156 ms CBC auto differential Collection [...] participate in all unit activities. Recovery plan: INTEGRATED LOGISTICS PROGRAMS DIRECTOR to assist with aftercare treatment options: Will explore treatment options Tiki Ponce APRN - JUSTEN Addiction Medicine 07/28/2023 at 11:11 AM Note: Narrative portions of note written using [employer] dictation software. Efforts are made to dictate clearly and proofread but errors in dictation still may occur. Please reach out to author with any clarifying questions. documented in this [facility]04-28-2024 Nurse Note* Kristina Hampton RN - 07/28/2023 1:29 AM EDT Continuous pulse ox initiated Dr. Daniel notified of pts spo2 dropping below 90% on room air and respirations of 28, supplemental oxygen nasal cannula initiated. [facility] [id number] Nurse Note* Kristina Hampton RN - 07/27/2023 11:23 PM EDT Pt arrived from [facility] via cart with squad and security at [...] in condition. Will monitor pt for safety. [id number] Emergency department Note* Alpa Middleton RN - 07/27/2023 10:37 PM EDT [facility] en [facility] with patient at this time. Alpa Middleton RN 07/27/232236 [address]Gybihm15-70-4997 Emergency department Note* Alpa Middleton RN - 07/27/2023 10:37 PM EDT Report given to 4E RN at this time Alpa Middleton RN 07/27/232236 [address]ifrx31-18-8428 Emergency department Note* Alpa Middleton RN - [...] emergency department visit, please see their documentation. [facility] ED EMERGENCY DEPARTMENT ENCOUNTER Pt Name: [...] CYST REMOVAL face EGD (HISTORICAL) 07/23/2022 Dr. Estrella-[facility] SMALL INTESTINE SURGERY UPPER GASTROINTESTINAL ENDOSCOPY [...] Age of Onset Depression Sister Maria De Jseus Hogan Other ([phone]) Sister Maria De Jesus Hogan agoraphobia Arthritis Sister Maria De Jesus Hogan Cancer Mother Maria De Jesus Hogan colon rectal cancer; dx after age 50 Other ([id number]) Mother Maria De Jesus Hogan alcoholism Alcohol abuse Mother Maria De Jesus Hogan Stroke Mother Maria De Jesus Hogan Other ([id number]) Father Maria De Jesus Hogan h/o rheumatic [...] 0 min Stress: Stress Concern Present (07/09/2023) [employer] - Occupational Stress Questionnaire Feeling of Stress : Very much Social Connections: Moderately Isolated (07/09/2023) Social Connection and Isolation Panel [NHANES] Frequency of Communication with Friends and Family: More than three times a week Frequency of Social Gatherings with Friends and Family: More than three times a week Attends Hinduism Services: Never Active Member of Clubs or [...] mis-transcribed.) MD ROXANA LyonsA Emergency Medicine Physician [facility] Triston Abraham MD 07/27/232225 * Rosalina Burgos [...] CYST REMOVAL face EGD (HISTORICAL) 07/23/2022 Dr. Estrella-[facility] SMALL INTESTINE SURGERY UPPER GASTROINTESTINAL ENDOSCOPY [...] Depression Sister Maria De Jesus Hogan Other ([id number]) Sister Maria De Jesus Hogan agoraphobia Arthritis Sister Maria De Jesus Hogan Cancer Mother Maria De Jesus Hogan colon rectal cancer; dx after age 50 Other ([id number]) Mother Maria De Jesus Hogan alcoholism Alcohol abuse Mother Maria De Jesus Hogan Stroke Mother Maria De Jesus Hogan Other ([id number]) Father Maria De Jesus Hogan h/o rheumatic [...] 0 min Stress: Stress Concern Present (07/09/2023) [employer] - Occupational Stress Questionnaire Feeling of Stress : Very much Social Connections: Moderately Isolated (07/09/2023) Social Connection and Isolation Panel [NHANES] Frequency of Communication with Friends and Family: More than three times a week Frequency of Social Gatherings with Friends and Family: More than three times a week Attends Hinduism Services: Never Active Member of Clubs or [...] drink was this evening documented in this [facility]04-27-2024 NoteNOTE: This result is for medical treatment only. Analysis performed using non-forensic procedures. [facility] [id number] Emergency department Triage note* Lupe Piper RN - 07/27/2023 6:41 PM EDT Pt states he was recently at detox for ETOH. States he is sleeping a lot having abdominal pain and nausea and just wants to feel better last drink was this evening [facility] HospitalUrvzng80-23-1406 Physician Emergency department Note* Triston Abraham MD [...] emergency department visit, please see their documentation. [facility] ED EMERGENCY DEPARTMENT ENCOUNTER Pt Name: [...] CYST REMOVAL face EGD (HISTORICAL) 07/23/2022 Dr. Estrella-[facility] SMALL INTESTINE SURGERY UPPER GASTROINTESTINAL ENDOSCOPY [...] Depression Sister Maria De Jesus Hogan Other ([id number]) Sister Maria De Jesus Hogan agoraphobia Arthritis Sister Maria De Jesus Hogan Cancer Mother Maria De Jesus Hogan colon rectal cancer; dx after age 50 Other ([id number]) Mother Maria De Jesus Hogan alcoholism Alcohol abuse Mother Maria De Jesus Hogan Stroke Mother Maria De Jessu Hogan Other ([phone]) Father Maria De Jesus Hogan h/o rheumatic [...] 0 min Stress: Stress Concern Present (07/09/2023) [employer] - Occupational Stress Questionnaire Feeling of Stress : Very much Social Connections: Moderately Isolated (07/09/2023) Social Connection and Isolation Panel [NHANES] Frequency of Communication with Friends and Family: More than three times a week Frequency of Social Gatherings with Friends and Family: More than three times a week Attends Hinduism Services: Never Active Member of Clubs or [...] Triston Abraham MD PATRICIA Emergency Medicine Physician [facility] Triston Abraham MD 07/27/232225 [facility] [employer] Phone: [phone] 378-373204-27-2024 Physician Emergency department Note* Rosalina Burgos DO [...] for the entirety of this encounter. HPI MariaD e Jesus Hogan is a 57 y.o. who [...] CYST REMOVAL face EGD (HISTORICAL) 07/23/2022 Dr. Estrella-[facility] SMALL INTESTINE SURGERY UPPER GASTROINTESTINAL ENDOSCOPY [...] Depression Sister Maria De Jesus Hogan Other ([id number]) Sister Maria De Jesus Hogan agoraphobia Arthritis Sister Maria De Jesus Hogan Cancer Mother Maria De Jesus Hogan colon rectal cancer; dx after age 50 Other ([id number]) Mother Maria De Jesus Hogan alcoholism Alcohol abuse Mother Maria De Jesus Hogan Stroke Mother Maria De Jesus Hogan Other ([id number]) Father Maria De Jesus Hogan h/o rheumatic [...] 0 min Stress: Stress Concern Present (07/09/2023) [employer] - Occupational Stress Questionnaire Feeling of Stress : Very much Social Connections: Moderately Isolated (07/09/2023) Social Connection and Isolation Panel [NHANES] Frequency of Communication with Friends and Family: More than three times a week Frequency of Social Gatherings with Friends and Family: More than three times a week Attends Hinduism Services: Never Active Member of Clubs or [...] Medicine Provider Rosalina Burgos DO Resident 07/27/232124 [facility] HospitalNoksfm26-49-9039 Telephone encounter Note* Telephone Encounter - Lakia Damon MA - 07/19/2023 10:46 AM EDT Recent Visits Date Type Provider Dept 12/26/22 Office Visit Lynda Rasheed MD [facility] 09/25/22 Office Visit Lynda Rasheed MD [facility] 08/01/22 Office Visit Lynda Rasheed MD [facility] Showing recent visits within past 365 [...] Most recent labs completed in chart? N/A [place] [address]-19-2024 Miscellaneous Notes* Telephone Encounter - Lakia Damon MA - 07/19/2023 10:46 AM EDT Recent Visits Date Type Provider Dept 12/26/22 Office Visit Lynda Rasheed MD [facility] 09/25/22 Office Visit Lynda Rasheed MD [facility] 08/01/22 Office Visit Lynda Rasheed MD [facility] Showing recent visits within past [...] completed in chart? 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 Tech escorted from the unit to 70 [...] of life. Denies si/hi. * Carito Hurtado Yleenajulinane, DO - 07/10/2023 1:40 PM EDT Images [...] time does not have healthcare power of commercial real estate attorney, living will, or documentation expressing his [...] own after discharge. Will include information for [facility] and avenues. Patient states willing to [...] with questions or concerns. documented in this [facility]04-11-2024 Group counseling note* Group Note - Soco Edmonds - 07/11/2023 3:55 PM EDT Department: [facility] ACTIVITIES THERAPY Group Topic: Music Therapy Group [...] Jesus Hogan Date of : 1965 MR: [id number] Mental Status Exam: Appearance: Appropriately dressed and [...] Conversion reaction BPH (benign prostatic hyperplasia) Tachycardia [facility] [id number] Miscellaneous Notes* Group Note - Soco Edmonds - 07/11/2023 3:55 PM EDT Department: [facility] [employer] THERAPY Group Topic: Music Therapy Group Date: 07/11/2023 Start Time: 1500 End Time: 1530 Facilitators: Soco Edmonds Number of Participants: 6 Group Name: [employer] Treatment Modality: Music Therapy Purpose: relapse prevention [...] Jesus Hogan Date of : 1965 MR: [id number] Mental Status Exam: Appearance: Appropriately dressed and [...] BENNIE Solis - 07/11/2023 10:24 AM EDT INTEGRATED LOGISTICS PROGRAMS DIRECTOR saw patient to discuss aftercare plans and treatment post discharge. Patient declined to allow INTEGRATED LOGISTICS PROGRAMS DIRECTOR to assist with scheduling aftercare appointments. INTEGRATED LOGISTICS PROGRAMS DIRECTOR included information for agencies in patient's local community for him to call and schedule engagement with. Patient denied current SI/HI/AVH.Patient reported that their would be picking them up from the hospital and taking them back home. Patient denied needing anything further from INTEGRATED LOGISTICS PROGRAMS DIRECTOR at the time. INTEGRATED LOGISTICS PROGRAMS DIRECTOR informed patient's nurse aboutconversation. * Care Coordination - BENNIE Solis - 07/09/2023 10:13 AM EDT PT SKILLED met with patient again to inquire about aftercare plans. Patient reports that he is interested in reengaging with an agency for [facility] in the [facility]. INTEGRATED LOGISTICS PROGRAMS DIRECTOR offered to identify aftercare agencies for patient and schedule intake appointment however patient is declining reporting that he would like to schedule his own aftercare appointments. INTEGRATED LOGISTICS PROGRAMS DIRECTOR included information for [facility] and avenues. INTEGRATED LOGISTICS PROGRAMS DIRECTOR will continue to follow-up as necessary. Patient encouraged to seek out INTEGRATED LOGISTICS PROGRAMS DIRECTOR should he identify any additional care plans. [...] He has previous history of engagement with [facility] for outpatient mental health treatment. Patient has [...] as an adult. Patient denies any history [place] or status. Family Constellation/Childhood History: Patient reports that he is currently to his living in [facility]. Patient reports that he has 3 biological children and 4 stepchildren. Patient reports that his father in his 11 years old. Patient did not report his mother is stillalive currently. Patient was born and raised in [place], [place] by his mother and father. 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 Patient denies SSI/SSD. Cultural/Spirituality/Leisure: Patient denies any cultural needs or concerns at the current time. Patient denies identify any hinduism preference. It is unknown if patient is [...] declined aftercare assistance while on the unit. INTEGRATED LOGISTICS PROGRAMS DIRECTOR will continue to work with patient to identify aftercare plans. Patient encouraged to engage in all activities thatare offered to them while they are on the unit. Patient report needing additional current time. Patient encouraged to seek out INTEGRATED LOGISTICS PROGRAMS DIRECTOR unit staff should they identify any additional [...] reduce anxiety Outcome: Progressing documented in this [facility]04-11-2024 Note* Care Coordination - BENNIE Solis - 07/11/2023 10:24 AM EDT INTEGRATED LOGISTICS PROGRAMS DIRECTOR saw patient to discuss aftercare plans and treatment post discharge. Patient declined to allow INTEGRATED LOGISTICS PROGRAMS DIRECTOR to assist with scheduling aftercare appointments. INTEGRATED LOGISTICS PROGRAMS DIRECTOR included information for agencies in patient's local community for him to call and schedule engagement with. Patient denied current SI/HI/AVH.Patient reported that their would be picking them up from the hospital and taking them back home. Patient denied needing anything further from INTEGRATED LOGISTICS PROGRAMS DIRECTOR at the time. INTEGRATED LOGISTICS PROGRAMS DIRECTOR informed patient's nurse aboutconversation. [id number] Note* Care Coordination - BENNIE Solis - 07/11/2023 10:24 AM EDT INTEGRATED LOGISTICS PROGRAMS DIRECTOR saw patient to discuss aftercare plans and treatment post discharge. Patient declined to allow INTEGRATED LOGISTICS PROGRAMS DIRECTOR to assist with scheduling aftercare appointments. INTEGRATED LOGISTICS PROGRAMS DIRECTOR included information for agencies in patient's local community for him to call and schedule engagement with. Patient denied current SI/HI/AVH.Patient reported that their would be picking them up from the hospital and taking them back home. Patient denied needing anything further from INTEGRATED LOGISTICS PROGRAMS DIRECTOR at the time. INTEGRATED LOGISTICS PROGRAMS DIRECTOR informed patient's nurse aboutconversation. [id number] Hospital course Narrative* Carito Fernandez DO - 07/11/2023 10:01 AM EDT Images from the original note were not included. ADDICTION MEDICINE 4E DETOX UNIT DISCHARGE SUMMARY __ Patient MRN Maria De Jesus Hogan [id number] 1965 Admit Date Discharge Date 07/08/2023 07/11/2023 Primary Care Physician Lynda Rasheed MD Admitting Physician Jonatan Mckeon MD Consultants SW. Reason for Admission Alcohol Withdrawal Maria De Jesus Hogan is a 57 y.o. year old male with SigPMHx of alcohol use disorder, severe, depression, anxiety, HTN, CAD, stroke/TIA, GERD, Lombardo's esophagus, GI bleed, pneumatosis, COPD, patient well-known to addiction medicine, that presented to [facility] on 07/08 for detox. While in [...] plans on discharge to follow up with [facility] at [facility] on own, care team offered to [...] 360 ms QTC Interval 474 ms P [place] 58 degrees QRS [place] 81 degrees T Wave [place] 39 degrees MI Interval 149 ms Imaging ECG 12 lead [...] (100 mg) by mouth daily. Follow Up [facility] and [place] [address], [address] [place] [address] Schedule an appointment as soon as possible for a visit to engage in IOP/Counseling needs for addiction medicine follow up. [facility], [address], [address] Schedule an appointment as soon as possible [...] process. Jonatan Mckeon MD documented in this [facility]04-10-2024 Nurse Note* Evelyn Abad RN - 07/10/2023 8:46 PM EDT Patient assessed in group room. Pt is up and steady, seen socializing with other patients. Pt is cooperative and med compliant. Pt denies SI/HI/AVH. Pt encouraged to notify staff for any questions and concerns. [id number] Nurse Note* Evelyn Abad RN - 07/10/2023 [...] any questions and concerns. documented in this [facility]04-10-2024 Nurse Note* Nicole Albrecht RN - 07/10/2023 9:30 AM EDT Mr. Hogan is sitting up in his room. He reports eating early this morning. He was encouraged to attend meetings offered. [facility]Vpejcx74-03-8847 Nurse Note* Evelyn Abad RN - 07/09/2023 9:28 PM EDT Patient assessed in patient's room. Pt is up and steady, withdrawn to room. Pt is cooperative and med compliant. Pt denies SI/HI/AVH. Pt encouraged to notify staff for any questions and concerns. [facility]Czdssk11-92-2569 History and physical note* Carito Fernandez, - [...] well-known to addiction medicine, that presented to [facility] on 07/08 for detox. While in [...] consult. Patient has history of hospitalization at [facility] for mood disorders. Current Substance Use Alcohol: [...] 08/31/2019 Alcohol intoxication without use disorder, uncomplicated ([facility]) 10/01/2019 Alcohol use disorder 09/10/2022 Alcohol withdrawal syndrome with complication (HCC) 09/27/2021 Alcohol withdrawal, uncomplicated (HCC) 08/31/2019 Alcohol withdrawal, with unspecified complication (HCC) 10/02/2019 Alcohol withdrawal, with unspecified complication (HCC) 10/02/2019 Alcoholism ([facility]) (HCC) Anxiety Arthritis Maria De Jesus Cerebral artery occlusion with cerebral infarction (HCC) Cerebrovascular disease Depression GERD (gastroesophageal reflux disease) Maria De Jesus Hypertension Insomnia Past Surgical History Past Surgical History: Procedure Laterality Date COLONOSCOPY 06/10/2020 EGD/Dr Madison/AMANDA CYST REMOVAL face EGD (HISTORICAL) 07/23/2022 Dr. Estrella-[facility] SMALL INTESTINE SURGERY UPPER GASTROINTESTINAL ENDOSCOPY 09/27/2021 normal WISDOM TOOTH EXTRACTION Family History Family History Problem Relation Name Age of Onset Depression Sister Maria De Jesus Hogan Other ([id number]) Sister Maria De Jesus Hogan agoraphobia Arthritis Sister Maria De Jesus Hogan Cancer Mother Maria De Jesus Hogan colon rectal cancer; dx after age 50 Other ([id number]) Mother Maria De Jesus Hogan alcoholism Alcohol abuse Mother Maria De Jesus Hogan Stroke Mother Maria De Jesus Hogan Other ([id number]) Father Maria De Jesus Hogan h/o rheumatic [...] 0 min Stress: Stress Concern Present (07/09/2023) [employer] - Occupational Stress Questionnaire Feeling of Stress : Very much Social Connections: Moderately Isolated (07/09/2023) Social Connection and Isolation Panel [NHANES] Frequency of Communication with Friends and Family: More than three times a week Frequency of Social Gatherings with Friends and Family: More than three times a week Attends Hinduism Services: Never Active Member of Clubs or [...] Year: No Utilities: Not At Risk (07/09/2023) [facility] Utilities Threatened with loss of utilities: No [...] On 07-08-2023 18:36:57 EDT by Catalino Mujica [employer] Recent Results (from the past 48 hour(s)) ECG 12 lead Collection Time: 07/08/23 6:07 PM Result Value Ref Range Heart Rate 104 bpm QRSD Interval 105 ms QT Interval 360 ms QTC Interval 474 ms P [place] 58 degrees QRS [place] 81 degrees T Wave [place] 39 degrees [place] Interval 149 ms CBC auto differential Collection [...] own after discharge. Will include information for [facility] and avenues. Alcohol withdrawal Last use [...] with the resident s findings and plan. [id number] History and physical note* Carito Fernandez, - [...] well-known to addiction medicine, that presented to [facility] ED on 07/08 for detox. While in [...] consult. Patient has history of hospitalization at [facility] for mood disorders. Current Substance Use Alcohol: [...] CYST REMOVAL face EGD (HISTORICAL) 07/23/2022 Dr. Estrella-[facility] SMALL INTESTINE SURGERY UPPER GASTROINTESTINAL ENDOSCOPY 09/27/2021 normal WISDOM TOOTH EXTRACTION Family History Family History Problem Relation Name Age of Onset Depression Sister Maria De Jesus Hoagn Other ([id number]) Sister Maria De Jesus Hogan agoraphobia Arthritis Sister Maria De Jesus Hogan Cancer Mother Maria De Jesus Hogan colon rectal cancer; dx after age 50 Other ([id number]) Mother Maria De Jesus Hogan alcoholism Alcohol abuse Mother Maria De eJsus Hogan Stroke Mother Maria De Jesus Hogan Other ([phone]) Father Maria De Jesus Hogan h/o rheumatic [...] 0 min Stress: Stress Concern Present (07/09/2023) [employer] - Occupational Stress Questionnaire Feeling of Stress : Very much Social Connections: Moderately Isolated (07/09/2023) Social Connection and Isolation Panel [NHANES] Frequency of Communication with Friends and Family: More than three times a week Frequency of Social Gatherings with Friends and Family: More than three times a week Attends Hinduism Services: Never Active Member of Clubs or [...] Year: No Utilities: Not At Risk (07/09/2023) [facility] Utilities Threatened with loss of utilities: No [...] 360 ms QTC Interval 474 ms P [place] 58 degrees QRS [place] 81 degrees T Wave [place] 39 degrees [place] Interval 149 ms CBC auto differential Collection [...] own after discharge. Will include information for [facility] and avenues. Alcohol withdrawal Last use [...] s findings and plan. documented in this [facility]04-09-2024 Note* Care Coordination - BENNIE Solis - 07/09/2023 10:13 AM EDT PT SKILLED met with patient again to inquire about aftercare plans. Patient reports that he is interested in reengaging with an agency for IOP in the [facility]. INTEGRATED LOGISTICS PROGRAMS DIRECTOR offered to identify aftercare agencies for patient and schedule intake appointment however patient is declining reporting that he would like to schedule his own aftercare appointments. INTEGRATED LOGISTICS PROGRAMS DIRECTOR included information for [facility] and avenues. INTEGRATED LOGISTICS PROGRAMS DIRECTOR will continue to follow-up as necessary. Patient encouraged to seek out INTEGRATED LOGISTICS PROGRAMS DIRECTOR should he identify any additional care plans. [facility]04-09-2024 Note* Care Coordination - BENNIE Solis - 07/09/2023 10:13 AM EDT PT SKILLED met with patient again to inquire about aftercare plans. Patient reports that he is interested in reengaging with an agency for IOP in the [facility]. INTEGRATED LOGISTICS PROGRAMS DIRECTOR offered to identify aftercare agencies for patient and schedule intake appointment however patient is declining reporting that he would like to schedule his own aftercare appointments. INTEGRATED LOGISTICS PROGRAMS DIRECTOR included information for [facility] and avenues. INTEGRATED LOGISTICS PROGRAMS DIRECTOR will continue to follow-up as necessary. Patient encouraged to seek out INTEGRATED LOGISTICS PROGRAMS DIRECTOR should he identify any additional care plans. [id number] Note* Care Coordination - Amina MariluzBENNIE - [...] He has previous history of engagement with [facility] for outpatient mental health treatment. Patient has [...] as an adult. Patient denies any history [place] or status. Family Constellation/Childhood History: Patient reports that he is currently to his living in [facility]. Patient reports that he has 3 biological children and 4 stepchildren. Patient reports that his father in his 11 years old. Patient did not report his mother is stillalive currently. Patient was born and raised in [place], [place] by his mother and father. 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 Patient denies SSI/SSD. Cultural/Spirituality/Leisure: Patient denies any cultural needs or concerns at the current time. Patient denies identify any hinduism preference. It is unknown if patient is [...] declined aftercare assistance while on the unit. INTEGRATED LOGISTICS PROGRAMS DIRECTOR will continue to work with patient to identify aftercare plans. Patient encouraged to engage in all activities thatare offered to them while they are on the unit. Patient report needing additional current time. Patient encouraged to seek out INTEGRATED LOGISTICS PROGRAMS DIRECTOR unit staff should they identify any additional [...] to contact the dictating provider for clarification. [facility] HospitalFsjlpr83-54-0812 Note* Care Coordination - BENNIE Solis - [...] He has previous history of engagement with [facility] [place] [facility] health treatment. Patient has [...] as an adult. Patient denies any history [place] or status. Family Constellation/Childhood History: Patient reports that he is currently to his living in [facility]. Patient reports that he has 3 biological children and 4 stepchildren. Patient reports that his father in his 9 years old. Patient did not report his mother is stillalive currently. Patient was born and raised in [place], [place] by his mother and father. 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 Patient denies SSI/SSD. Cultural/Spirituality/Leisure: Patient denies any cultural needs or concerns at the current time. Patient denies identify any hinduism preference. It is unknown if patient is [...] declined aftercare assistance while on the unit. [facility] will continue to work with patient to identify aftercare plans. Patient encouraged to engage in all activities thatare offered to them while they are on the unit. Patient report needing additional current time. Patient encouraged to seek out [facility] unit staff should they identify any additional [...] to contact the dictating provider for clarification. [facility] [id number] Hospital Discharge instructions* Discharge Instr - Other [...] National Suicide Prevention Hotline if needed at: 4-962-096-IQLL (4242) Please call the following number should you have questions regarding your discharge or aftercare appointments: [facility] documented in this encounterSKeenan Private [id number] Plan of care note* Care Plan - [...] Implements measures to reduce anxiety Outcome: Progressing [facility] HospitalVkenrq56-75-3277 Emergency department Note* Papito Ruiz RN - 07/09/2023 12:41 AM EDT Report to [facility] at bedside. Pt packaged for transport to [facility] detox. Final wanding by protective services. Papito Ruiz RN 07/09/[address] [facility] HospitalHozkap22-67-1587 Emergency department Note* Papito Ruiz RN - 07/09/2023 12:41 AM EDT Report to [facility] at bedside. Pt packaged for transport to [facility] detox. Final wanding by protective services. Papito Ruiz RN 07/09/23 004 * Reynaldo Acevedo RN - 07/08/2023 10:59 PM EDT Report given to TISH Durna at by this RN. Reynaldo Acevedo RN 07/08/23 2259 * Catalino Mujica MD - 07/08/2023 5:43 PM EDT Emergency Department Encounter [facility] ED Patient: Maria De Jesus Hogan [...] CYST REMOVAL face EGD (HISTORICAL) 07/23/2022 Dr. Estrella-[facility] SMALL INTESTINE SURGERY UPPER GASTROINTESTINAL ENDOSCOPY [...] Depression Sister Maria De Jesus Hogan Other ([id number]) Sister Maria De Jesus Hogan agoraphobia Arthritis Sister Maria De Jesus Hogan Cancer Mother Maria De Jesus Hogan colon rectal cancer; dx after age 50 Other ([id number]) Mother Maria De Jesus Hogan alcoholism Alcohol abuse Mother Maria De Jesus Hogan Stroke Mother Maria De Jesus Hogan Other ([id number]) Father Maria De Jesus Hogan h/o rheumatic [...] 0 min Stress: Stress Concern Present (02/09/2023) [employer] - Occupational Stress Questionnaire Feeling of Stress : Very much Social Connections: Moderately Isolated (02/09/2023) Social Connection and Isolation Panel [NHANES] Frequency of Communication with Friends and Family: More than three times a week Frequency of Social Gatherings with Friends and Family: More than three times a week Attends Hinduism Services: Never Active Member of Clubs or [...] cleared to be admitted to detox at [facility]. Patient was accepted to detox and transferred [...] II, MD Resident 07/08/232053 documented in this [place] [address]-08-2024 Emergency department Note* Reynaldo Acevedo RN - 07/08/2023 10:59 PM EDT Report given to TISH Duran at by this RN. Reynaldo Acevedo RN 07/08/23 936 [place] [address]Mrskri94-61-3437 NoteNOTE: This result is for medical treatment only. Analysis performed using non-forensic procedures. [place] [id number] Physician Emergency department Note* Catalino Mujica MD - 07/08/2023 5:43 PM EDT Emergency Department Encounter [facility] ED Patient: Maria De Jesus Hogan [...] for clarification.) CATALINO MUJICA MD Acute Care [facility] Catalino Mujica MD 07/08/23 0522 [place] Phone: [phone] 506-148904-08-2024 Physician Emergency department Note* Mehul Galindo II, [...] CYST REMOVAL face EGD (HISTORICAL) 07/23/2022 Dr. Estrella-[facility] SMALL INTESTINE SURGERY UPPER GASTROINTESTINAL ENDOSCOPY [...] Depression Sister Maria De Jesus Hogan Other ([phone]) Sister Maria De Jesus Hogan agoraphobia Arthritis Sister Maria De Jesus Hogan Cancer Mother Maria De Jesus Hogan colon rectal cancer; dx after age 50 Other ([id number]) Mother Maria De Jesus Hogan alcoholism Alcohol abuse Mother Maria De Jesus Hogan Stroke Mother Maria De Jesus Hogan Other ([id number]) Father Maria De Jesus Hogan h/o rheumatic [...] 0 min Stress: Stress Concern Present (02/09/2023) [employer] - Occupational Stress Questionnaire Feeling of Stress : Very much Social Connections: Moderately Isolated (02/09/2023) Social Connection and Isolation Panel [NHANES] Frequency of Communication with Friends and Family: More than three times a week Frequency of Social Gatherings with Friends and Family: More than three times a week Attends Hinduism Services: Never Active Member of Clubs or [...] cleared to be admitted to detox at [facility]. Patient was accepted to detox and transferred [...] Provider Mehul Galindo II, MD Resident 07/08/232053 [facility] HospitalKydnik25-19-0862 Telephone encounter Note* Telephone Encounter - Lakia Damon MA - 06/26/2023 1:52 PM EDT MARIYA 9.27.[address] [facility] HospitalQducyh59-40-1591 Telephone encounter Note* Telephone Encounter - Lakia Damon MA - 06/26/2023 1:52 PM EDT MARIYA 9.27.[address] [facility] HospitalYcqtzr21-30-7158 Miscellaneous Notes* Telephone Encounter - Lakia Damon MA - 06/26/2023 1:52 PM EDT MARIYA 9.27.23 NOV 4.4.24 documented in this [place] [address]-27-2024 Miscellaneous Notes* Telephone Encounter - Lakia Damon MA - 06/26/2023 1:52 PM EDT MARIYA 9.27.23 NOV 4.4.24 documented in this [place] [address]-16-2024 Telephone encounter Note* Telephone Encounter - Karolina [...] out. He said our program is great. [facility] HospitalPvqscg19-65-5283 Miscellaneous Notes* Telephone Encounter - Karolina Krueger [...] our program is great. documented in this [place] [address]-16-2024 Telephone encounter Note* Telephone Encounter - Karolina Krueger RN - 06/15/2023 6:33 PM EDT Left message to call back ACC RN. [facility] HospitalEfcsxe14-23-9848 Miscellaneous Notes* Telephone Encounter - Karolina Krueger RN - 06/15/2023 6:33 PM EDT Left message to call back ACC RN. documented in this [facility]03-07-2024 History of Present illness Narrative* PABLO Paul - 06/06/2023 1:30 PM EST Missed Session Unexcused Pt did not call or show for Scheduled Assessment on this date. documented in this [facility]02-22-2024 Nurse Note* Julianna Hampton RN - 05/23/2023 4:37 PM EST Patient signed AMA papers and IV was discontinued per Patient request. 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 [facility] HospitalUkxbua25-70-6545 Nurse Note* Julianna Hampton RN - 05/23/2023 4:37 PM EST Patient signed AMA papers and IV was discontinued per Patient request. 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 * Julianna Hampton RN - 05/23/2023 [...] multiple times an hour. documented in this [facility]02-22-2024 Note* Care Coordination - Ori Bone RN [...] Stay (Days): 3 GMLOS: No GMLOS Documented [facility]02-22-2024 Note* Care Coordination - Ori Bone RN [...] Stay (Days): 3 GMLOS: No GMLOS Documented [facility]02-22-2024 Miscellaneous Notes* Care Coordination - Ori Bone [...] PM Duration: 5 mins Type of Contact: Uptg-bw-Rmyp Patient's Identified Case Management/Care Coordination Need(s) addressed [...] Limits Permission given to speak with patient customer field representative/caregiver as indicated: Yes Confirmation of Payer [...] positive for ethyl only this admission Iv [id number] q 4 hrs with lorazepam CIWA 3 per bedside RN. VSS IA completed with pt this am Introduced self and role. Pt is not employed Independent and resides with spouse in two story home flight to master b/b. Uses no DME Verified insurance and pharmacy as per [employer]. DCP home no needs when clinically cleared for dc. Tcc to follow. Ori Bone RN documented in this [facility]02-22-2024 Nurse Note* Julianna Hampton RN - 05/23/2023 [...] very fast pace, multiple times an hour. [facility] HospitalXpfujj23-44-5024 History of Present illness Narrative* Bryan Rodriguez [...] 0 min Stress: Stress Concern Present (02/09/2023) [employer] - Occupational Stress Questionnaire Feeling of Stress : Very much Social Connections: Moderately Isolated (02/09/2023) Social Connection and Isolation Panel [NHANES] Frequency of Communication with Friends and Family: More than three times a week Frequency of Social Gatherings with Friends and Family: More than three times a week Attends Hinduism Services: Never Active Member of Clubs or [...] CYST REMOVAL face EGD (HISTORICAL) 07/23/2022 Dr. Estrella-[facility] SMALL INTESTINE SURGERY UPPER GASTROINTESTINAL ENDOSCOPY 09/27/2021 normal WISDOM TOOTH EXTRACTION Family History Problem Relation Name Age of Onset Depression Sister Maria De Jesus Hogan Other ([id number]) Sister Maria De Jesus Hogan agoraphobia Arthritis Sister Maria De Jesus Hogan Cancer Mother Maria De Jesus Hogan colon rectal cancer; dx after age 50 Other ([id number]) Mother Maria De Jesus Hogan alcoholism Alcohol abuse Mother Maria De Jesus Hogan Stroke Mother Maria De Jesus Hogan Other ([id number]) Father Maria De Jesus Hogan h/o rheumatic [...] before October 23, 2022. 10/23/22 Robyn Edmond, BUSINESS RISK ANALYST - ROTOPRINTER nicotine polacrilex (Commit) 2 MG lozenge Dissolve [...] portions of the note are written utilizing [employer] software. While every effort is made todictate clearly and proofread, errors in the dictation may still occur. If there are any questions regarding the dictation please do not hesitate to contact the author. * Sia Bruce Roma, BUSINESS RISK ANALYST - ROTOPRINTER - 05/23/2023 5:59 AM EST Images from [...] JUAN CLAUDIO CNP Division of Hospitalist Medicine [facility] - [...] 0 min Stress: Stress Concern Present (02/09/2023) [employer] - Occupational Stress Questionnaire Feeling of Stress : Very much Social Connections: Moderately Isolated (02/09/2023) Social Connection and Isolation Panel [NHANES] Frequency of Communication with Friends and Family: More than three times a week Frequency of Social Gatherings with Friends and Family: More than three times a week Attends Hinduism Services: Never Active Member of Clubs or [...] CYST REMOVAL face EGD (HISTORICAL) 07/23/2022 Dr. Estrella-[facility] SMALL INTESTINE SURGERY UPPER GASTROINTESTINAL ENDOSCOPY 09/27/2021 normal WISDOM TOOTH EXTRACTION Family History Problem Relation Name Age of Onset Depression Sister Maria De Jesus Hogan Other ([id number]) Sister Maria De Jesus Hogan agoraphobia Arthritis Sister Maria De Jesus Hogan Cancer Mother Maria De Jesus Hogan colon rectal cancer; dx after age 50 Other ([id number]) Mother Maria De Jesus Hogan alcoholism Alcohol abuse Mother Maria De Jesus Hogan Stroke Mother Maria De Jesus Hogan Other ([id number]) Father Mari aDe Jesus Hogan h/o rheumatic fever, cardiac arrest [...] 381 ms QTC Interval 484 ms P [place] 78 degrees QRS [place] 75 degrees T Wave [place] 60 degrees MI Interval 154 ms POCT venous blood gas [...] 23, 2022. 10/23/22 Robyn Edmond APRN - ROTOPRINTER nicotine polacrilex (Commit) 2 MG lozenge Dissolve [...] portions of the note are written utilizing [employer] software. While every effort is made todictate clearly and proofread, errors in the dictation may still occur. If there are any questions regarding the dictation please do not hesitate to contact the author. * Eda Enriquez, BUSINESS RISK ANALYST - ROTOPRINTER - 05/22/2023 9:20 AM EST Images from [...] Extended Emergency Contact Information Primary Emergency Contact: [place],April Mobile Relation: Spouse JUAN ANAYA CNP Division of Hospitalist Medicine [employer] * Mae Rivas - 05/22/2023 8:47 AM EST Nutrition rescreen completed. Chart reviewed. Patient to be monitored and followed by the diet biosolids management technician. * JUAN Anaya CNP - 05/21/2023 9:01 AM EST Hospitalist Progress Note 05/21/2023 9:01 AM [phone]: Please reach me on [employer] Secure Chat for patient care issues. [phone]: Please page IMS night Hospitalist for any [...] studies, imaging, and progress notes reviewed. JUAN ANYAA CNP Division of Hospitalist Medicine [facility] Comment: Please note this report has been produced using speech recognition software and may contain errors related to that system including errors in grammar, punctuation, and spelling, as well as words and phrases that may be inappropriate. If there is any questions or concerns please feel free to contact the dictating provider for clarification documented in this [facility]02-21-2024 Note* Care Coordination - Raina Salgado - 05/22/2023 4:25 PM EST [facility] Case Management/Care Coordination Note Date of Contact: 05/22/23 Start Time: 4:20 PM End Time: 4:25 PM Duration: 5 mins Type of Contact: [id number]-ej-Otsb Patient's Identified Case Management/Care Coordination Need(s) addressed [...] changes in his schedule/questions/concerns prior to appointment. [facility] [id number] Note* Care Coordination - Raina Salgado - 05/22/2023 4:25 PM EST [facility]patient [facility] Case Management/Care Coordination Note Date of Contact: 05/22/23 Start Time: 4:20 PM End Time: 4:25 PM Duration: 5 mins Type of Contact: Sqsz-wf-Cadv Patient's Identified Case Management/Care Coordination Need(s) addressed [...] changes in his schedule/questions/concerns prior to appointment. [facility] [id number] Note* Care Coordination - Ori Bone RN - 05/22/2023 3:56 PM EST Care Managment Initial Assessment Date: 05/22/2023 Patient Name: Maria De Jesus Hogan : 1965 Patient Information Source of Information: Patient Cognition/Language: WFL - Within Functional Limits Permission given to speak with patient customer field representative/caregiver as indicated: Yes Confirmation of Payer with patient/family: Yes Payer Name: [employer] [place]: No Confirmation of Primary Care Physician: Confirmed [...] positive for ethyl only this admission Iv [id number] q 4 hrs with lorazepam CIWA 3 per bedside RN. VSS IA completed with pt this am Introduced self and role. Pt is not employed Independent and resides with spouse in two story home flight to master b/b. Uses no DME Verified insurance and pharmacy as per [facility]. DCP home no needs when clinically cleared for dc. Tcc to follow. Ori Bone RN [facility] HospitalIdiggg34-79-5144 Note* Care Coordination - Ori Bone RN - 05/22/2023 3:56 PM EST Care Managment Initial Assessment Date: 05/22/2023 Patient Name: Maria De Jesus Hogan : 1965 Patient Information Source of Information: Patient Cognition/Language: WFL - Within Functional Limits Permission given to speak with patient customer field representative/caregiver as indicated: Yes Confirmation of Payer with patient/family: Yes Payer Name: [place] [employer] : No Confirmation of Primary Care [...] positive for ethyl only this admission Iv [id number] q 4 hrs with lorazepam CIWA 3 per bedside RN. VSS IA completed with pt this am Introduced self and role. Pt is not employed Independent and resides with spouse in two story home flight to master b/b. Uses no DME Verified insurance and pharmacy as per [employer]. DCP home no needs when clinically cleared for dc. Tcc to follow. Ori Bone RN [facility]02-20-2024 Emergency department Note* Candy Pearson RN - 05/21/2023 11:54 AM EST Sleeping soundly, respirations normal. Could not awaken with calling out name and slight touch. Left resources regarding addiction peer support at bedside with note. Candy Pearson RN 05/21/[address] [facility] HospitalIpqyqb53-57-3487 Emergency department Note* Candy Pearson RN - [...] now at 97% Alpa Middleton RN 05/20/23 8603 * Judy Higgins RN - 05/20/2023 10:35 PM EST [facility] Judy Higgins RN 05/20/23 9625 * Judy Higgins RN - 05/20/2023 10:33 [...] per day. 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 HISTORY OF PRESENT ILLNESS (Location/Symptom, Timing/Onset, Context/Setting, [...] CYST REMOVAL face EGD (HISTORICAL) 07/23/2022 Dr. Estrella-[facility] SMALL INTESTINE SURGERY UPPER GASTROINTESTINAL ENDOSCOPY [...] Depression Sister Maria De Jesus Hogan Other ([id number]) Sister Maria De Jesus Hogan agoraphobia Arthritis Sister Maria De Jesus Hogan Cancer Mother Maria De Jesus Hogan colon rectal cancer; dx after age 50 Other ([id number]) Mother Maria De Jesus Hogan alcoholism Alcohol abuse Mother Maria De Jesus Hogan Stroke Mother Maria De Jesus Hogan Other ([phone]) Father Maria De Jesus Hogan h/o rheumatic [...] 0 min Stress: Stress Concern Present (02/09/2023) [employer] - Occupational Stress Questionnaire Feeling of Stress : Very much Social Connections: Moderately Isolated (02/09/2023) Social Connection and Isolation Panel [NHANES] Frequency of Communication with Friends and Family: More than three times a week Frequency of Social Gatherings with Friends and Family: More than three times a week Attends Hinduism Services: Never Active Member of Clubs or [...] Culture. Procedure Abnormality Status --------- ------ Complete Urinalysis[[id number]] Please view results for these tests on [...] Scooter Luna MD 05/20/232025 documented in this [facility]02-20-2024 Consult note* Bryan Rodriguez MD - 05/21/2023 10:42 AM ESTAssociated Order(s): IP CONSULT TO ADDICTION MEDICINE Images from the original note were not included. Addiction Medicine Patient: Maria De Jesus Hogan Admit Date: 05/20/2023 Primary Care Physician: Lynda Rasheed MD History of Present Illness Patient is a 57-year-old male presenting to [facility] for stabilization of alcohol dependence/withdrawal. Patient does [...] 0 min Stress: Stress Concern Present (02/09/2023) [employer] - Occupational Stress Questionnaire Feeling of Stress : Very much Social Connections: Moderately Isolated (02/09/2023) Social Connection and Isolation Panel [NHANES] Frequency of Communication with Friends and Family: More than three times a week Frequency of Social Gatherings with Friends and Family: More than three times a week Attends Hinduism Services: Never Active Member of Clubs or [...] CYST REMOVAL face EGD (HISTORICAL) 07/23/2022 Dr. Estrella-[facility] SMALL INTESTINE SURGERY UPPER GASTROINTESTINAL ENDOSCOPY 09/27/2021 normal WISDOM TOOTH EXTRACTION Family History Problem Relation Name Age of Onset Depression Sister Maria De Jesus Hogan Other ([id number]) Sister Maria De Jesus Hogan agoraphobia Arthritis Sister Maria De Jesus Hogan Cancer Mother Maria De Jesus Hogan colon rectal cancer; dx after age 50 Other ([id number]) Mother Maria De Jesus Hogan alcoholism Alcohol abuse Mother Maria De Jesus Hogan Stroke Mother Maria De Jesus Hogan Other ([phone]) Father Maria De Jesus Hogan h/o rheumatic [...] 381 ms QTC Interval 484 ms P [place] 78 degrees QRS [place] 75 degrees T Wave [place] 60 degrees [place] Interval 154 ms POCT venous blood gas [...] before October 23, 2022. 10/23/22 Robyn Edmond, BUSINESS RISK ANALYST - ROTOPRINTER nicotine polacrilex (Commit) 2 MG lozenge Dissolve [...] portions of the note are written utilizing [employer] software. While every effort is made todictate clearly and proofread, errors in the dictation may still occur. If there are any questions regarding the dictation please do not hesitate to contact the author. [id number] Consult note* Bryan Rodriguez MD - 05/21/2023 10:42 AM EST Associated Order(s): IP CONSULT TO ADDICTION MEDICINE Images from the original note were not included. Addiction Medicine Patient: Maria De Jesus Hogan Admit Date: 05/20/2023 Primary Care Physician: Lynda Rasheed MD History of Present Illness Patient is a 57-year-old male presenting to [facility] for stabilization of alcohol dependence/withdrawal. Patient does [...] he has been through multiple detoxifications with [facility] dating back to 2014. He is [...] 0 min Stress: Stress Concern Present (02/09/2023) [employer] - Occupational Stress Questionnaire Feeling of Stress : Very much Social Connections: Moderately Isolated (02/09/2023) Social Connection and Isolation Panel [NHANES] Frequency of Communication with Friends and Family: More than three times a week Frequency of Social Gatherings with Friends and Family: More than three times a week Attends Hinduism Services: Never Active Member of Clubs or [...] CYST REMOVAL face EGD (HISTORICAL) 07/23/2022 Dr. Estrella-[facility] SMALL INTESTINE SURGERY UPPER GASTROINTESTINAL ENDOSCOPY 09/27/2021 normal WISDOM TOOTH EXTRACTION Family History Problem Relation Name Age of Onset Depression Sister Maria De Jesus Hogan Other ([id number]) Sister Maria De Jesus Hogan agoraphobia Arthritis Sister Maria De Jesus Hogan Cancer Mother Maria De Jesus Hogan colon rectal cancer; dx after age 50 Other ([id number]) Mother Maria De Jesus Hogan alcoholism Alcohol abuse Mother Maria De Jesus Hogan Stroke Mother Maria De Jesus Hogan Other ([phone]) Father Maria De Jesus Hogan h/o rheumatic [...] 381 ms QTC Interval 484 ms P [place] 78 degrees QRS [place] 75 degrees T Wave [place] 60 degrees [place] Interval 154 ms POCT venous blood gas [...] 23, 2022. 10/23/22 Robyn Edmond APRN - ROTOPRINTER nicotine polacrilex (Commit) 2 MG lozenge Dissolve [...] portions of the note are written utilizing [employer] software. While every effort is made todictate clearly and proofread, errors in the dictation may still occur. If there are any questions regarding the dictation please do not hesitate to contact the author. documented in this [facility]02-20-2024 Emergency department Note* Estella De Dios RN [...] removed. Estella De Dios RN 05/21/[address]20-2024 Emergency department Note* Estella De Dios RN - 05/21/2023 7:20 AM EST Rounding on pt: pt states I don't know I might need some more of that medicine CIWA reassessed, pt c/o anxiety and jitteriness, slight agitation Estella De Dios RN 05/21/[address]20-2024 Emergency department Note* Alpa Middleton RN - 05/21/2023 7:00 AM EST Patient ordered breakfast. Alpa Middleton RN 05/21/[address]20-2024 Emergency department Note* Alpa Middleton RN - 05/21/2023 4:25 AM EST Seizure pads placed on patient's bed at this time. Alpa Middleton RN 05/21/[address]20-2024 Emergency department Note* Alpa Middleton RN - 05/21/2023 3:11 AM EST Patient told this RN that he is now feeling more jittery and anxious than before. CIWA reassessed. Alpa Middleton RN 05/21/[address] [facility] [id number] History and physical note* Shelly Cruz MD - 05/21/2023 2:34 AM EST Images from the original note were not included. History and Physical [facility] : 1965 AGE 57 y.o. YEARS Note [...] per day. 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 Estrella-[facility] SMALL INTESTINE SURGERY UPPER GASTROINTESTINAL ENDOSCOPY [...] Depression Sister Maria De Jesus Hogan Other ([id number]) Sister Maria De Jesus Hogan agoraphobia Arthritis Sister Maria De Jesus Hogan Cancer Mother Maria De Jesus Hogan colon rectal cancer; dx after age 50 Other ([id number]) Mother Maria De Jesus Hogan alcoholism Alcohol abuse Mother Maria De Jesus Hogan Stroke Mother Maria De Jesus Hogan Other ([phone]) Father Maria De Jesus Hogan h/o rheumatic [...] 05/20/2023 381 QTC Interval 05/20/2023 484 P [place] 05/20/2023 78 QRS [place] 05/20/2023 75 T Wave [place] 05/20/2023 60 MI Interval 05/20/2023 154 Color, Urine 05/20/2023 Colorless [...] QT Interval 381 QTC Interval 484 P [place] 78 QRS [place] 75 T Wave [place] 60 MI Interval 154 Impression Sinus rhythm Consider left [...] mechanical contraindicated 05/21/2023 Maria De Jesus [place] [phone] Any scheduled follow up appointments Extended Emergency Contact Information Primary Emergency Contact: [place] Mobile Relation: Spouse Portions of this note may be electronically transcribed. Please forward a copy of this H&P to the primary care physician. [facility] [place] Work Phone: 1(716) 474-143502-20-2024 History and physical note* Shelly Cruz MD - 05/21/2023 2:34 AM EST Images from the original note were not included. History and Physical [facility] Maria De Jesus Hogan : 1965 AGE [...] per day. 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 Estrella-[facility] SMALL INTESTINE SURGERY UPPER GASTROINTESTINAL ENDOSCOPY [...] Depression Sister Maria De Jesus Hogan Other ([id number]) Sister Maria De Jesus Hogan agoraphobia Arthritis Sister Maria De Jesus Hogan Cancer Mother Maria De Jesus Hogan colon rectal cancer; dx after age 50 Other ([id number]) Mother Maria De Jesus Hogan alcoholism Alcohol abuse Mother Maria De Jesus Hogan Stroke Mother Maria De Jesus Hogan Other ([phone]) Father Maria De Jesus Hogan h/o rheumatic [...] 05/20/2023 381 QTC Interval 05/20/2023 484 P [place] 05/20/2023 78 QRS [place] 05/20/2023 75 T Wave [place] 05/20/2023 60 MI Interval 05/20/2023 154 Color, Urine 05/20/2023 Colorless [...] QT Interval 381 QTC Interval 484 P [place] 78 QRS [place] 75 T Wave [place] 60 MI Interval 154 Impression Sinus rhythm Consider left [...] mechanical contraindicated 05/21/2023 Maria De Jesus Hogan [id number] Any scheduled follow up appointments Extended Emergency Contact Information Primary Emergency Contact: [place] Mobile Relation: Spouse Portions of this note may be electronically transcribed. Please forward a copy of this H&P to the primary care physician. documented in this [place] [address]-19-2024 Emergency department Note* Alpa Middleton RN - 05/20/2023 11:18 PM EST Patient placed on NRB while sleeping. SPO2 was dropping while asleep due to mouth breathing. Patient now at 97% Alpa Middleton RN 05/20/232325 [id number] Emergency department Note* Judy Higgins RN - 05/20/2023 10:35 PM EST [facility] [place] Judy Higgins RN 05/20/232234 [address]Cbcynq43-08-7896 Emergency department Note* Judy Higgins RN - 05/20/2023 10:33 PM EST Detox full per Dr Jennifer Higgins RN 05/20/232233 [address]Vpzaki76-19-4085 Physician Emergency department Note* Scooter Luna MD [...] per day. 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 HISTORY OF PRESENT ILLNESS (Location/Symptom, Timing/Onset, Context/Setting, [...] CYST REMOVAL face EGD (HISTORICAL) 07/23/2022 Dr. Estrella-[facility] SMALL INTESTINE SURGERY UPPER GASTROINTESTINAL ENDOSCOPY [...] Depression Sister Maria De Jesus Hogan Other ([id number]) Sister Maria De Jesus Hogan agoraphobia Arthritis Sister Maria De Jesus Hogan Cancer Mother Maria De Jesus Hogan colon rectal cancer; dx after age 50 Other ([id number]) Mother Maria De Jesus Hogan alcoholism Alcohol abuse Mother Maria De Jesus Hogan Stroke Mother Maria De Jesus Hogan Other ([id number]) Father Maria De Jesus Hogan h/o rheumatic [...] 0 min Stress: Stress Concern Present (02/09/2023) [employer] - Occupational Stress Questionnaire Feeling of Stress : Very much Social Connections: Moderately Isolated (02/09/2023) Social Connection and Isolation Panel [NHANES] Frequency of Communication with Friends and Family: More than three times a week Frequency of Social Gatherings with Friends and Family: More than three times a week Attends Hinduism Services: Never Active Member of Clubs or [...] Culture. Procedure Abnormality Status --------- ------ Complete Urinalysis[[id number]] Please view results for these tests on [...] Emergency Medicine Provider Scooter Luna MD 05/20/232025 [facility] [id number] Telephone encounter Note* Telephone Encounter - Kristina Fan MA - 04/24/2023 12:35 PM EST Last OV:12/26/22 Scheduled:n/a [id number] Miscellaneous Notes* Telephone Encounter - Kristina Fan MA - 04/24/2023 12:35 PM EST Last OV:12/26/22 Scheduled:n/a documented in this [facility]12-19-2023 Emergency department Note* Catalino Waddell MD - [...] CYST REMOVAL face EGD (HISTORICAL) 07/23/2022 Dr. Estrella[facility] SMALL INTESTINE SURGERY UPPER GASTROINTESTINAL ENDOSCOPY [...] Depression Sister Maria De Jesus Hogan Other ([phone]) Sister Maria De Jesus Hogan agoraphobia Arthritis Sister Maria De Jesus Hogan Cancer Mother Maria De Jesus Hogan colon rectal cancer; dx after age 50 Other ([id number]) Mother Maria De Jesus Hogan alcoholism Alcohol abuse Mother Maria De Jesus Hogan Stroke Mother Maria De Jesus Hogan Other ([phone]) Father Maria De Jesus Hogan h/o rheumatic [...] 0 min Stress: Stress Concern Present (02/09/2023) [employer] - Occupational Stress Questionnaire Feeling of Stress : Very much Social Connections: Moderately Isolated (02/09/2023) Social Connection and Isolation Panel [NHANES] Frequency of Communication with Friends and Family: More than three times a week Frequency of Social Gatherings with Friends and Family: More than three times a week Attends Hinduism Services: Never Active Member of Clubs or [...] AM PATIENT REFERRED TO: Lynda Rasheed MD [address] [place] [address] [address] [facility] [address] As needed DISCHARGE MEDICATIONS: New Prescriptions No [...] Waddell MD 03/19/23 1116 documented in this [facility]12-19-2023 Physician Emergency department Note* Catalino Waddell MD [...] withdrawal, with unspecified complication (HCC) 10/02/2019 Alcoholism ([facility]/HCC) (HCC) Anxiety Arthritis Maria De Jesus Cerebral artery occlusion with cerebral infarction (HCC) Cerebrovascular disease Depression GERD (gastroesophageal reflux disease) Maria De Jesus Hypertension Insomnia SURGICAL HISTORY Past Surgical History: Procedure Laterality Date COLONOSCOPY 06/10/2020 EGD/Dr Madison/AMANDA CYST REMOVAL face EGD (HISTORICAL) 07/23/2022 Dr. Estrella-[facility] SMALL INTESTINE SURGERY UPPER GASTROINTESTINAL ENDOSCOPY [...] Depression Sister Maria De Jesus Hogan Other ([phone]) Sister Maria De Jesus Hogan agoraphobia Arthritis Sister Maria De Jesus Hogan Cancer Mother Maria De Jesus Hogan colon rectal cancer; dx after age 50 Other ([id number]) Mother Maria De Jesus Hogan alcoholism Alcohol abuse Mother Maria De Jesus Hogan Stroke Mother Maria De Jesus Hogan Other ([phone]) Father Maria De Jesus Hogan h/o rheumatic [...] 0 min Stress: Stress Concern Present (02/09/2023) [employer] - Occupational Stress Questionnaire Feeling of Stress : Very much Social Connections: Moderately Isolated (02/09/2023) Social Connection and Isolation Panel [NHANES] Frequency of Communication with Friends and Family: More than three times a week Frequency of Social Gatherings with Friends and Family: More than three times a week Attends Hinduism Services: Never Active Member of Clubs or [...] Physician [facility] (Per Emergency Physician): No acute third [...] PATIENT REFERRED TO: Lynda Rasheed MD [address] [facility] [address] [facility] [address] As needed DISCHARGE MEDICATIONS: New Prescriptions No [...] Medicine Provider Catalino Waddell MD 03/19/[address] [facility] [id number] Hospital Discharge instructions* Discharge Instructions* Harjinder Darnell MD - 02/18/2023 7:59 AM EST Follow up with a dentist as soon as possible * Attachments The following attachments cannot be sent through Care Everywhere. * Tooth Abscess ED (Irish) documented in this [facility]11-20-2023 Emergency department Note* Radha Gaytan RN - [...] withdrawal, with unspecified complication (HCC) 10/02/2019 Alcoholism ([facility]/HCC) (HCC) Anxiety Arthritis Maria De Jesus Cerebral artery occlusion with cerebral infarction (HCC) Cerebrovascular disease Depression GERD (gastroesophageal reflux disease) Maria De Jesus Hypertension Insomnia SURGICAL HISTORY Past Surgical History: Procedure Laterality Date COLONOSCOPY 06/10/2020 EGD/Dr Madison/AMANDA CYST REMOVAL face EGD (HISTORICAL) 07/23/2022 Dr. Estrella-[facility] SMALL INTESTINE SURGERY UPPER GASTROINTESTINAL ENDOSCOPY [...] Depression Sister Maria De Jesus Hogan Other ([phone]) Sister Maria De Jesus Hogan agoraphobia Arthritis Sister Maria De Jesus Hogan Cancer Mother Maria De Jesus Hogan colon rectal cancer; dx after age 50 Other ([id number]) Mother Maria De Jesus Hogan alcoholism Alcohol abuse Mother Maria De Jesus Hogan Stroke Mother Maria De Jesus Hogan Other (04693) Father Maria De Jesus Hogan h/o rheumatic [...] 0 min Stress: Stress Concern Present (02/09/2023) [employer] - Occupational Stress Questionnaire Feeling of Stress : Very much Social Connections: Moderately Isolated (02/09/2023) Social Connection and Isolation Panel [NHANES] Frequency of Communication with Friends and Family: More than three times a week Frequency of Social Gatherings with Friends and Family: More than three times a week Attends Hinduism Services: Never Active Member of Clubs or [...] AM PATIENT REFERRED TO: Lynda Rasheed MD [address] [place] [address] [address] [facility] [id number] as previously scheduled DISCHARGE MEDICATIONS: New Prescriptions [...] Darnell MD 02/18/23 1009 documented in this [facility]11-20-2023 Emergency department Triage note* Radha Gaytan RN [...] no distress noted. +left sidedfacial swelling noted. [facility]11-20-2023 Physician Emergency department Note* Harjinder Darnell MD [...] CYST REMOVAL face EGD (HISTORICAL) 07/23/2022 Dr. Estrella-[facility] SMALL INTESTINE SURGERY UPPER GASTROINTESTINAL ENDOSCOPY [...] Depression Sister Maria De Jesus Hogan Other ([phone]) Sister Maria De Jesus Hogan agoraphobia Arthritis Sister Maria De Jesus Hogan Cancer Mother Maria De Jesus Hogan colon rectal cancer; dx after age 50 Other ([id number]) Mother Maria De Jesus Hogan alcoholism Alcohol abuse Mother Maria De Jesus Hogan Stroke Mother Maria De Jesus Hogan Other ([phone]) Father Maria De Jesus Hogan h/o rheumatic [...] 0 min Stress: Stress Concern Present (02/09/2023) [employer] - Occupational Stress Questionnaire Feeling of Stress : Very much Social Connections: Moderately Isolated (02/09/2023) Social Connection and Isolation Panel [NHANES] Frequency of Communication with Friends and Family: More than three times a week Frequency of Social Gatherings with Friends and Family: More than three times a week Attends Hinduism Services: Never Active Member of Clubs or [...] AM PATIENT REFERRED TO: Lynda Rasheed MD [address] [place] [address] [address] [facility] [address] as previously scheduled DISCHARGE MEDICATIONS: New Prescriptions [...] Medicine Provider Harjinder Darnell MD 02/18/[address] [facility] [id number] Hospital Discharge instructions* Discharge Instructions* Harjinder Darnell MD - 02/17/2023 9:20 AM EST Follow-up with a dentist as soon as possible * Attachments The following attachments cannot be sent through Care Everywhere. * Dental Pain Discharge Instructions (Irish) documented in this [facility]11-19-2023 Emergency department Note* Harjinder Darnell MD - [...] CYST REMOVAL face EGD (HISTORICAL) 07/23/2022 Dr. Estrella-[facility] SMALL INTESTINE SURGERY UPPER GASTROINTESTINAL ENDOSCOPY [...] Depression Sister Maria De Jesus Hogan Other ([id number]) Sister Maria De Jesus Hogan agoraphobia Arthritis Sister Maria De Jesus Hogan Cancer Mother Maria De Jesus Hogan colon rectal cancer; dx after age 50 Other ([id number]) Mother Maria De Jesus Hogan alcoholism Alcohol abuse Mother Maria De Jesus Hogan Stroke Mother Maria De Jesus Hogan Other ([phone]) Father Maria De Jesus Hogan h/o rheumatic [...] 0 min Stress: Stress Concern Present (02/09/2023) [employer] - Occupational Stress Questionnaire Feeling of Stress : Very much Social Connections: Moderately Isolated (02/09/2023) Social Connection and Isolation Panel [NHANES] Frequency of Communication with Friends and Family: More than three times a week Frequency of Social Gatherings with Friends and Family: More than three times a week Attends Hinduism Services: Never Active Member of Clubs or [...] AM PATIENT REFERRED TO: Lynda Rasheed MD [address] [place] [address] [address] [facility] [phone] as previously scheduled DISCHARGE MEDICATIONS: New Prescriptions [...] call light within reach. documented in this [facility]11-19-2023 Emergency department Triage note* Evelyn Wick RN - 02/17/2023 8:51 AM EST Patient to room 3 with c/o upper left dental pain that started yesterday. V/S obtained, call light within reach. [facility] [id number] Physician Emergency department Note* Harjinder Darnell MD [...] withdrawal, with unspecified complication (HCC) 10/02/2019 Alcoholism ([facility]/HCC) (HCC) Anxiety Arthritis Maria De Jesus Cerebral artery occlusion with cerebral infarction (HCC) Cerebrovascular disease Depression GERD (gastroesophageal reflux disease) Maria De Jesus Hypertension Insomnia SURGICAL HISTORY Past Surgical History: Procedure Laterality Date COLONOSCOPY 06/10/2020 EGD/Dr Madison/AMANDA CYST REMOVAL face EGD (HISTORICAL) 07/23/2022 Dr. Estrella-[facility] SMALL INTESTINE SURGERY UPPER GASTROINTESTINAL ENDOSCOPY [...] Depression Sister Maria De Jesus Hogan Other ([phone]) Sister Maria De Jesus Hogan agoraphobia Arthritis Sister Maria De Jesus Hogan Cancer Mother Maria De Jesus Hogan colon rectal cancer; dx after age 50 Other ([id number]) Mother Maria De Jesus Hogan alcoholism Alcohol abuse Mother Maria De Jesus Hogan Stroke Mother Maria De Jesus Hogan Other (84763) Father Maria De Jesus Hogan h/o rheumatic [...] 0 min Stress: Stress Concern Present (02/09/2023) [employer] - Occupational Stress Questionnaire Feeling of Stress : Very much Social Connections: Moderately Isolated (02/09/2023) Social Connection and Isolation Panel [NHANES] Frequency of Communication with Friends and Family: More than three times a week Frequency of Social Gatherings with Friends and Family: More than three times a week Attends Hinduism Services: Never Active Member of Clubs or [...] AM PATIENT REFERRED TO: Lynda Rasheed MD [address] [place] [address] [address] [facility] [address] as previously scheduled DISCHARGE MEDICATIONS: New Prescriptions [...] Medicine Provider Harjinder Darnell MD 02/17/[address] [facility] [id number] Note* Care Coordination - BENNIE Solis - 02/11/2023 12:01 PM EST BENNIE informed the patient called his insurance rather than have his come pick him up from the hospital. Provide a ride picking patient up from hospital and taking them back home [facility] [id number] Note* Care Coordination - BENNIE Solis - 02/11/2023 12:01 PM EST BENNIE informed the patient called his insurance rather than have his come pick him up from the hospital. Provide a ride picking patient up from hospital and taking them back home [facility] Health [id number] Miscellaneous Notes* Care Coordination - BENNIE Solis - 02/11/2023 12:01 PM EST BENNIE informed the patient called his insurance rather than have his come pick him up from the hospital. Provide a ride picking patient up from hospital and taking them back home * Care Coordination - BENNIE Solis - 02/11/2023 11:08 AM EST INTEGRATED LOGISTICS PROGRAMS DIRECTOR saw patient to discuss aftercare plans and treatment post discharge. Patient declined assistance with aftercare appointments at current time. Patient discussed desire to restart MAT. INTEGRATED LOGISTICS PROGRAMS DIRECTOR noted concerns with MAT Patient's chart encourage patient to discuss this further with medical provider. Patient denied current SI/HI/AVH. Patient reported that their would be picking them up from the hospital and taking them back home. Patient denied needing anything further from INTEGRATED LOGISTICS PROGRAMS DIRECTOR at the time. INTEGRATED LOGISTICS PROGRAMS DIRECTOR informed patient's nurse about conversation. * Care [...] IOP and connecting with a PRC from [employer]. Pt was provided with informational brochures on First Step, IOP, PRC, and Vivitrol. documented in this [facility]11-13-2023 History of Present illness Narrative* Stephanie Schmitt [...] understood and signed. 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 He called himself. Discharged from unit at 1201. * Lizz Martinez RN - 02/11/2023 5:26 AM EST This [...] - labs/tests/tasks to review: LFT Recovery plan: INTEGRATED LOGISTICS PROGRAMS DIRECTOR plan for further addiction treatment at undecided JUAN Rothman NP Addiction Medicine 02/10/2023 at 2:54 PM Note: Narrative portions of note written using [employer] dictation software. Efforts are made to dictate clearly and proofread but errors in dictation still may occur. Please reach out to author with any clarifying questions. * Ruchi Martinez - 02/10/2023 7:11 AM EST Nutrition rescreen completed. Chart reviewed. Patient to be monitored and followed by the diet biosolids management technician. * Lizz Martinez RN - 02/10/2023 [...] that arise. Pt verbalizedunderstanding. documented in this [facility]11-13-2023 Hospital Discharge instructions* Discharge Instructions* Papito Hood MD - 02/11/2023 11:19 AM EST Images from the original note were not included. [facility] PROGRAMS __ Addiction Medicine Intensive Outpatient Program [place] ([facility]): [phone] [facility]: [phone] [place]: [phone] Behavioral Health Intensive Outpatient Program [place] ([facility]): [phone] [place]: [phone] First Step [place] ([facility]): [phone] [facility]: [phone] Partial Hospitalization Program [place] ([facility]): [phone] [facility] [place] ([facility]): [phone] [facility] [place] ([facility]): [phone] Alcoholics Anonymous Meetings [email or web address] [facility] [address] [place] [address], [address], [place] [address] documented in this [facility]11-13-2023 Note* Care Coordination - BENNIE Solis - 02/11/2023 11:08 AM EST INTEGRATED LOGISTICS PROGRAMS DIRECTOR saw patient to discuss aftercare plans and treatment post discharge. Patient declined assistance with aftercare appointments at current time. Patient discussed desire to restart MAT. INTEGRATED LOGISTICS PROGRAMS DIRECTOR noted concerns with MAT Patient's chart encourage patient to discuss this further with medical provider. Patient denied current SI/HI/AVH. Patient reported that their would be picking them up from the hospital and taking them back home. Patient denied needing anything further from INTEGRATED LOGISTICS PROGRAMS DIRECTOR at the time. INTEGRATED LOGISTICS PROGRAMS DIRECTOR informed patient's nurse about conversation. [id number] Note* Care Coordination - BENNIE Solis - 02/11/2023 11:08 AM EST INTEGRATED LOGISTICS PROGRAMS DIRECTOR saw patient to discuss aftercare plans and treatment post discharge. Patient declined assistance with aftercare appointments at current time. Patient discussed desire to restart MAT. INTEGRATED LOGISTICS PROGRAMS DIRECTOR noted concerns with MAT Patient's chart encourage patient to discuss this further with medical provider. Patient denied current SI/HI/AVH. Patient reported that their would be picking them up from the hospital and taking them back home. Patient denied needing anything further from INTEGRATED LOGISTICS PROGRAMS DIRECTOR at the time. INTEGRATED LOGISTICS PROGRAMS DIRECTOR informed patient's nurse about conversation. [facility] HospitalVhelgk32-03-4624 Nurse Note* Lauren Irby RN - 02/10/2023 [...] far. Will continue to monitor for safety. [facility] [id number] Nurse Note* Lauren Irby RN - 02/10/2023 [...] PO administered for sleep. documented in this [facility]11-11-2023 Nurse Note* Lauren Irby RN - 02/09/2023 11:26 AM EST Patient seclusive to room this shift. Patient compliant with medications and treatment offered. Patient denies SI/HI/AVH thus far. Patient appetite, hygiene, and sleep adequate. Patient independent with ADLs and ambulation. Patient encouraged to approach staff with any concerns or needs. Will continue to monitor for safety. [facility] [id number] History and physical note* Tiki Ponce APRN - JUSTEN - 02/09/2023 8:42 AM EST Addiction Medicine [facility] Patient: Maria De Jesus [...] history of IOPat [facility] in [place]. He has a history of a psychiatric [...] 0 min Stress: Stress Concern Present (02/09/2023) [employer] - Occupational Stress Questionnaire Feeling of Stress : Very much Social Connections: Moderately Isolated (02/09/2023) Social Connection and Isolation Panel [NHANES] Frequency of Communication with Friends and Family: More than three times a week Frequency of Social Gatherings with Friends and Family: More than three times a week Attends Hinduism Services: Never Active Member of Clubs or [...] CYST REMOVAL face EGD (HISTORICAL) 07/23/2022 Dr. Estrella-[facility] SMALL INTESTINE SURGERY UPPER GASTROINTESTINAL ENDOSCOPY 09/27/2021 normal WISDOM TOOTH EXTRACTION Family History Problem Relation Name Age of Onset Depression Sister Maria De Jesus Hogan Other (67108) Sister Maria De Jesus Hogan agoraphobia Arthritis Sister Maria De Jesus Hogan Cancer Mother Maria De Jesus Hogan colon rectal cancer; dx after age 50 Other ([id number]) Mother Maria De Jesus Hogan alcoholism Alcohol abuse Mother Maria De Jesus Hogan Stroke Mother Maria De Jesus Hogan Other ([id number]) Father Maria De Jesus Hogan h/o rheumatic [...] participate in all unit activities. Recovery plan: INTEGRATED LOGISTICS PROGRAMS DIRECTOR to assist with aftercare treatment options as patient stabilizes JUAN Rothman NP Addiction Medicine 02/09/2023 at 3:21 PM Note: Narrative portions of note written using [employer] dictation software. Efforts are made to dictate clearly and proofread but errors in dictation still may occur. Please reach out to author with any clarifying questions. Associated attestation - Jonatan Mckeon MD - 02/10/2023 10:18 AM EST I have reviewed the documented history, ROS, physical exam, and decision making and agree. [facility] HospitalPkfaoc79-05-3021 History and physical note* JUAN Hill NP - 02/09/2023 8:42 AM EST Addiction Medicine [facility] Patient: Maria De Jesus [...] 0 min Stress: Stress Concern Present (02/09/2023) [employer] - Occupational Stress Questionnaire Feeling of Stress : Very much Social Connections: Moderately Isolated (02/09/2023) Social Connection and Isolation Panel [NHANES] Frequency of Communication with Friends and Family: More than three times a week Frequency of Social Gatherings with Friends and Family: More than three times a week Attends Hinduism Services: Never Active Member of Clubs or [...] CYST REMOVAL face EGD (HISTORICAL) 07/23/2022 Dr. Estrella-[facility] SMALL INTESTINE SURGERY UPPER GASTROINTESTINAL ENDOSCOPY 09/27/2021 normal WISDOM TOOTH EXTRACTION Family History Problem Relation Name Age of Onset Depression Sister Maria De Jesus Hogan Other (56351) Sister Maria De Jesus Hogan agoraphobia Arthritis Sister Maria De Jesus Hogan Cancer Mother Maria De Jesus Hogan colon rectal cancer; dx after age 50 Other ([id number]) Mother Maria De Jesus Hogan alcoholism Alcohol abuse Mother Maria De Jesus Hogan Stroke Mother Maria De Jesus Hogan Other (44080) Father Maria De Jesus Hogan h/o rheumatic [...] participate in all unit activities. Recovery plan: INTEGRATED LOGISTICS PROGRAMS DIRECTOR to assist with aftercare treatment options as patient stabilizes Tiki Ponce APRN - QUILL COLLECTOR Addiction Medicine 02/09/2023 at 3:21 PM Note: Narrative portions of note written using [employer] dictation software. Efforts are made to dictate clearly and proofread but errors in dictation still may occur. Please reach out to author with any clarifying questions. Associated attestation - Jonatan Mckeon MD - 02/10/2023 10:18 AM EST I have reviewed the documented history, ROS, physical exam, and decision making and agree. documented in this [facility]11-11-2023 Plan of care note* Care Plan - [...] Goal: Reports signs/symptoms of withdrawal Outcome: Progressing [facility] HospitalJxnfpo04-22-3186 Nurse Note* Neftali Glass RN - 02/09/2023 [...] trazodone 100 mg PO administered for sleep. [address]byxtn37-91-5883 Emergency department Note* Kassie Vargas RN - 02/08/2023 10:59 PM EST Spoke with 4E about patient departure and provider notification. Kassie Vargas RN 02/08/232302 [address]Wkyuyi70-97-8264 Emergency department Note* Kassie Vargas RN - 02/08/2023 10:59 PM EST Spoke with 4E about patient departure and provider notification. Kassie Vargas RN 02/08/23 995 * Kassie Vargas RN - 02/08/2023 10:47 PM EST Protective services at bedside for wanding. Kassie Vargas RN 02/08/23 4751 * Kassie Vargas RN - 02/08/2023 10:47 PM EST [facility]icians ambulance arrived. Kassie Vargas RN 02/08/23 8711 * Kassie Vargas RN - 02/08/2023 8:35 [...] Birthdate 1965 Date of evaluation: 02/08/2023 Provider: AUNSHA KOTHARI MD CHIEF COMPLAINT Chief Complaint Patient [...] patch (1 patch TransDERmal Medication Applied 02/08/23 4957) Followed by nicotine (Nicoderm, Step 2) 14 [...] Anusha Kothari MD 02/08/231827 documented in this [address]10-2023 Emergency department Note* Kassie Vargas RN - 02/08/2023 10:47 PM EST Protective services at bedside for wanding. Kassie Vargas RN 02/08/232247 [address]Fxuhmp71-99-5843 Emergency department Note* Kassie Vargas RN - 02/08/2023 10:47 PM EST Physicians ambulance arrived. Kassie Vargas RN 02/08/232246 [address]Epacya76-99-5026 Emergency department Note* Kassie Vargas RN - 02/08/2023 8:35 PM EST Protective services at bedside to do belongings check and wanding. Patient still has procession of pillow and cellular device. Patient verbalized understanding of phone and pillow will be secured before departure of unit. Kassie Vragas RN 02/08/232035 [address]Vprbvu35-06-5282 Emergency department Note* Kassie Vargas RN - 02/08/2023 8:28 PM EST Patient ambulatory to the restroom with steady gait. Kassie Vargas RN 02/08/232033 [place] [address]-10-2023 Emergency department Note* Kassie Vargas RN - 02/08/2023 7:47 PM EST Snack and beverage provided to patient. Kassie Vargas RN 02/08/232016 [place] [address]Opcxyq33-32-4591 Emergency department Note* Jen Nunez RN - 02/08/2023 7:36 PM EST Report called to 4E Jen Nunez RN 02/08/231935 [place] [address]-10-2023 Note* Care Coordination - Eda Villa RN [...] IOP and connecting with a PRC from [facility]. Pt was provided with informational brochures on First Step, IOP, PRC, and Vivitrol. [place] [address]-10-2023 Note* Care Coordination - Eda Villa RN [...] IOP and connecting with a PRC from [facility]. Pt was provided with informational brochures on First Step, IOP, PRC, and Vivitrol. [facility] HospitalGwyzlq22-71-2053 NoteNOTE: This result is for medical treatment only. Analysis performed using non-forensic procedures. [facility] HospitalAhamzu59-64-4351 Physician Emergency department Note* Anusha Kothari MD [...] MD Emergency Medicine Anusha Kothari MD 02/08/231827 [facility] [employer] Work Phone: [phone] 893-205910-30-2023 Telephone encounter Note* Telephone Encounter - Kristina Fan MA - 01/28/2023 2:27 PM EDT Last OV:12/26/22 Scheduled:04/03/23 [facility] HospitalAenjig8791 Miscellaneous Notes* Telephone Encounter - Kristina Fan MA - 01/28/2023 2:27 PM EDT Last OV:12/26/22 Scheduled:04/03/23 documented in this encounterSKeenan Private HospitalBddtmf48-90-8098 History of Present illness Narrative* Lynda Rasheed MD - 12/26/2022 8:20 AM EDT Images from the original note were not included. [facility] [address] [place] [address] [address] [facility] [address] Dept: [phone] Dept Loc: [phone] Reason for Visit: Follow-up Assessment and Plan 1. [place] [facility] [place] - Sotero Madsen MD 2. 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 He is to continue Protonix. 3. Psoriasiform seborrheic dermatitis is a chronic stable issue continue Dovonex. 4. Alcohol use disorder, severe (HCC) patient currently sees the psychiatry alcohol addiction program through [facility]. He is getting medication through them. [...] currently doing well in this aspect. Seeing [facility] addiction program. Currently on thiamine multivitamin [...] CYST REMOVAL face EGD (HISTORICAL) 07/23/2022 Dr. Estrella-[facility] SMALL INTESTINE SURGERY UPPER GASTROINTESTINAL ENDOSCOPY 09/27/2021 normal WISDOM TOOTH EXTRACTION Family History Problem Relation Name Age of Onset Depression Sister Maria De Jesus Hogan Other (37971) Sister Maria De Jesus Hogan agoraphobia Arthritis Sister Maria De Jesus Hogan Cancer Mother Maria De Jesus Hogan colon rectal cancer; dx after age 50 Other (98788) Mother Maria De Jesus Hogan alcoholism Alcohol abuse Mother Maria De Jesus Hogan Stroke Mother Maria De Jesus Hogan Other (92261) Father Maria De Jesus Hogan h/o rheumatic [...] by Katrina Rasheed MD documented in this [facility]09-11-2023 Telephone encounter Note* Telephone Encounter - Kristina Fan MA - 12/10/2022 11:11 AM EDT Last OV:09.25.22 Scheduled:12/26/22 [facility] HospitalQvmnka38-71-0554 Miscellaneous Notes* Telephone Encounter - Kristina Fan MA - 12/10/2022 11:11 AM EDT Last OV:09.25.22 Scheduled:12/26/22 documented in this [facility]07-11-2023 Miscellaneous Notes* Addendum Note - Papito Hood MD - 10/09/2022 9:00 AM EDTAddended by: PAPITO HOOD on: 10/09/2022 10:00 AM Modules accepted: Orders documented in this [facility]07-11-2023 Note* Addendum Note - Papito Hood MD - 10/09/2022 9:00 AM EDTAddended by: PAPITO HOOD on: 10/09/2022 10:00 AM Modules accepted: Orders [facility] HospitalVkkyid47-73-1717 Note* Addendum Note - Papito Hood MD - 10/09/2022 9:00 AM EDTAddended by: PAPITO HOOD on: 10/09/2022 10:00 AM Modules accepted: Orders [facility] HospitalXbebsv51-04-4610 Telephone encounter Note* Telephone Encounter - Lynda [...] iron. This is also in the chart [facility] HospitalOhkfvf69-05-3963 Miscellaneous Notes* Telephone Encounter - Lynda Rasheed [...] also in the chart documented in this encounterSKeenan Private HospitalPtioce85-92-5125 History of Present illness Narrative* Lynda Rasheed MD - 09/25/2022 8:20 AM EDT Images from the original note were not included. [facility] [address] [place] [address] Dept: [phone] Dept Loc: [phone] Reason for Visit: Follow-up (8 week, pt [...] 3. Psoriasis patient also to follow-up with photocopier technician - calcipotriene (Dovonex) 0.005 % cream; Apply topically 2 times daily., Starting Sat09/25/2022, Normal 4. Scre[place] [facility] [place] Surgery - Sotero Madsen MD 5 alcohol usage. Patient currently was in detox for 5 days. He states that he is doing much better he is on Vivitrol he has an upcoming appointment with the [facility] psychiatry detox. We will continue to follow-up [...] problems recently he was at detox at [facility]. 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 Estrella-[facility] SMALL INTESTINE SURGERY UPPER GASTROINTESTINAL ENDOSCOPY 09/27/2021 normal WISDOM TOOTH EXTRACTION Family History Problem Relation Name Age of Onset Depression Sister Maria De Jesus Hogan Other (46035) Sister Maria De Jesus Hogan agoraphobia Arthritis Sister Maria De Jesus Hogan Cancer Mother Maria De Jesus Hogan colon rectal cancer; dx after age 50 Other ([id number]) Mother Maria De Jesus Hogan alcoholism Alcohol abuse Mother Maria De Jesus Hogan Stroke Mother Maria De Jesus Hogan Other (70922) Father Maria De Jesus Hogan h/o rheumatic [...] by Katrina Rasheed MD documented in this [place] [address]23 Telephone encounter Note* Telephone Encounter - Kristina Fan MA - 09/24/2022 9:44 AM EDT Last seen:08/01/22 Scheduled:09/25/22 [address]jrqof54-89-8614 Miscellaneous Notes* Telephone Encounter - Kristina Fan MA - 09/24/2022 9:44 AM EDT Last seen:08/01/22 Scheduled:09/25/22 documented in this [address]20-2023 Telephone encounter Note* Telephone Encounter - Kristina Fan MA - 09/18/2022 8:04 AM EDT Last seen:08/01/22 Scheduled:09/25/22 [address]Lumuat32-67-4496 Miscellaneous Notes* Telephone Encounter - Kristina Fan MA - 09/18/2022 8:04 AM EDT Last seen:08/01/22 Scheduled:09/25/22 documented in this [place] [address]23 History of Present illness Narrative* Lauren Irby [...] discharge order. Scheduled for OUTPT assessment at [facility] on September 19; [employer] will schedule leny't for [facility] physician. Scripts: Thiamine; Nicotine Patch/susan Robyn Edmond [...] medication effectiveness. * Tiki Ponce APRN - QUILL COLLECTOR - 09/13/2022 8:24 AM EDT Addiction Medicine [...] - labs/tests/tasks to review: none Recovery plan: INTEGRATED LOGISTICS PROGRAMS DIRECTOR plan for further addiction treatment at [facility] and [facility] with Dr. Jennifer Ponce APRN - QUILL COLLECTOR Addiction Medicine 09/13/2022 at 12:52 PM Note: Narrative portions of note written using [employer] dictation software. Efforts are made to dictate [...] Recommendations/Plan: Will assign level 1 referring to technical staff engineer to monitor. Malnutrition Assessment: Malnutrition Status: No [...] loss Fluid Accumulation: No significant fluid accumulation Community Health Specialist Strength: Not Performed Nutrition Assessment: Per chart: 09/11: said he didn't tolerate po, 09/12 100% of bfst. consumed. 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 he skipped meals for the last 2 weeks, consumed 100% of Lunch, declines supplemental foods Estimated Daily Nutrient Needs: Energy Requirements Based On: Kcal/kg Weight Used for Energy Requirements: [place] Weight for Energy Calculation (kg): 75 kg Total Energy Requirements (kcals/day): 1875 - 2250 kcals Weight Used for Protein Requirements: [place] Weight in Kg Used for Protein Requirements: 75 kg Estimated Total Protein (g/day): 60 - 75 gms protein Estimated Daily Total Fluid (ml/day): 1875 - 2250 mls Nutrition Related Findings: weight loss TERMINAL SUPERINTENDENT, ETOH abuse Wound Type: None Current Nutrition Therapies: Adult diet Regular Current Oral Intake Average Meal Intake: 76-100% Average Supplements Intake: None Ordered Additional Calorie Sources Additional Calorie Sources: TERMINAL SUPERINTENDENT 7 - 9 tall beers/day Anthropometric Measures: Height: 177.8 cm (5' 10) Current Body Weight: 90.7 kg (200 lb) Weight Source: Not Specified Admission Body Weight: 90.7 kg (200 lb) Usual Body Weight: 95.3 kg (210 lb) ([facility] 06/07/21) % Weight Change (Calculated): -4.8 [place] Body Weight (lbs) (Calculated): 166 lbs [place] Body Weight (Kg) (Calculated): 75 kg % [place] Body Weight (Calculated): 120.5 % BMI (kg/m2) [...] Care (will assign level 1 referring to technical staff engineer to monitor) Plan of Care discussed with: pt. Goals: Goals: PO intake 75% or greater Nutrition Monitoring and Evaluation: Behavioral-Environmental Outcomes: None Identified Food/Nutrient Intake Outcomes: None Identified Physical Signs/Symptoms Outcomes: Hemodynamic Status, GI Status, Weight, Nutrition Focused PhysicalFindings, Meal Time Behavior, Skin, Fluid Status or Edema Discharge Planning: Assist with food insecurity, Continue current diet Mojgan Blum RD Contact: via [employer] chat or office *[phone] * JUAN Delgado CNP - 09/12/2022 3:00 [...] 1:30 AM EDT Pt arrived to from [facility] ED at 1939 via wheelchair. Skin check [...] Will continue to monitor. documented in this [facility]06-16-2023 Note* Care Coordination - BENNIE Solis - 09/14/2022 11:33 AM EDT INTEGRATED LOGISTICS PROGRAMS DIRECTOR saw patient to discuss aftercare plans and [...] home. Patient denied needing anything further from [facility] at the time. BENNIE informed patient's nurse about conversation. Electronically signed by BENNIE Solison 09/14/2022 at 11:[address] [facility] HospitalCotgkl71-23-7192 Note* Care Coordination - BENNIE Solis - 09/14/2022 11:33 AM EDT INTEGRATED LOGISTICS PROGRAMS DIRECTOR saw patient to discuss aftercare plans and [...] home. Patient denied needing anything further from INTEGRATED LOGISTICS PROGRAMS DIRECTOR at the time. INTEGRATED LOGISTICS PROGRAMS DIRECTOR informed patient's nurse about conversation. Electronically signed by Vida Solis 09/14/2022 at 11:[address] [facility] HospitalUnsteu39-19-4424 Miscellaneous Notes* Care Coordination - BENNIE Solis - 09/14/2022 11:33 AM EDT INTEGRATED LOGISTICS PROGRAMS DIRECTOR saw patient to discuss aftercare plans and [...] home. Patient denied needing anything further from INTEGRATED LOGISTICS PROGRAMS DIRECTOR at the time. INTEGRATED LOGISTICS PROGRAMS DIRECTOR informed patient's nurse about conversation. Electronically signed by Vida Solis 09/14/2022 at 11:33 AM * Group Note - Soco Edmonds - 09/13/2022 4:05 PM EDT Department: [facility]ER[facility] Group Topic: Mindfulness Group Date: 09/13/2022 [...] Jesus Hogan Date of : 1965 MR: [id number] Mental Status Exam: Appearance: Appropriately dressed and [...] BENNIE Solis - 09/12/2022 2:34 PM EDT INTEGRATED LOGISTICS PROGRAMS DIRECTOR being interested in [facility] for aftercare program. INTEGRATED LOGISTICS PROGRAMS DIRECTOR offered to call and schedule patient's intake appointment and patient was agreeable. Patient is also agreeable to Vivitrol injections previous to leaving the unit as well as following up with MAT services. INTEGRATED LOGISTICS PROGRAMS DIRECTOR schedule patient intake assessment include all information on patient's discharge plans. INTEGRATED LOGISTICS PROGRAMS DIRECTOR will continue to follow-up as necessary. * [...] seen in January 2021 Where patient left [place]. Presenting Problem: Patient presented to the ED [...] He has previous history of engagement with [facility] [facility] [place] [facility] Patient has [...] as an adult. Patient denies any history [place] or status. Family Constellation/Childhood History: Patient reports that he is currently to his living in [facility]. Patient reports that he has 3 biological children and 4 stepchildren. Patient reports that his father in his 11 years old. Patient did not report his mother is stillalive currently. Patient was born and raised in [place], [place] by his mother and father. 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 Patient denies SSI/SSD. Cultural/Spirituality/Leisure: Patient denies any cultural needs or concerns at the current time. Patient denies identify any hinduism preference. It is unknown if patient is [...] look like. Patient isopen to working with INTEGRATED LOGISTICS PROGRAMS DIRECTOR to identify an aftercare plan. Patient is encouraged to engage in all activities that are offered to him while he is on the unit. Patient not report anything additional at current time. Patient encouraged to seek out unit staff or INTEGRATED LOGISTICS PROGRAMS DIRECTOR should he identify any additional needsor concerns. [...] dictating provider for clarification. documented in this encounterSKeenan Private HospitalJmucbu53-45-0324 Group counseling note* Group Note - Soco Edmonds - 09/13/2022 4:05 PM EDT Department: [facility] ACTIVITIES THERAPY Group Topic: Mindfulness Group Date: [...] Jesus Hogan Date of : 1965 MR: [id number] Mental Status Exam: Appearance: Appropriately dressed and [...] disorder Alcohol withdrawal syndrome without complication (HCC) [facility]Pvevtr60-88-9644 Plan of care note* Care Plan - Mojgan Blum RD - 09/12/2022 4:40 PM EDT Continue to have good appetite [facility] HospitalMqahsb43-39-0245 Note* Care Coordination - BENNIE Solis - 09/12/2022 2:34 PM EDT INTEGRATED LOGISTICS PROGRAMS DIRECTOR being interested in [facility] for aftercare program. INTEGRATED LOGISTICS PROGRAMS DIRECTOR offered to call and schedule patient's intake appointment and patient was agreeable. Patient is also agreeable to Vivitrol injections previous to leaving the unit as well as following up with MAT services. INTEGRATED LOGISTICS PROGRAMS DIRECTOR schedule patient intake assessment include all information on patient's discharge plans. INTEGRATED LOGISTICS PROGRAMS DIRECTOR will continue to follow-up as necessary. [facility] HospitalWgwmno02-25-1288 Note* Care Coordination - BENNIE oSlis - 09/12/2022 2:34 PM EDT INTEGRATED LOGISTICS PROGRAMS DIRECTOR being interested in [facility] for aftercare program. INTEGRATED LOGISTICS PROGRAMS DIRECTOR offered to call and schedule patient's intake appointment and patient was agreeable. Patient is also agreeable to Vivitrol injections previous to leaving the unit as well as following up with MAT services. INTEGRATED LOGISTICS PROGRAMS DIRECTOR schedule patient intake assessment include all information on patient's discharge plans. INTEGRATED LOGISTICS PROGRAMS DIRECTOR will continue to follow-up as necessary. [facility] HospitalRnyiui02-92-8669 Nurse Note* Magaly Chowdhury RN - 09/12/2022 1:55 AM EDT Pt cooperative with nursing care and med compliant. Withdrawn to room in bed. Bed alarm in place, urinal at bedside. Denies SI/HI/AVH. Pt tremors have improved but still very tremulous. Pt encouragedto make needs known to staff. Call light within reach. Pt slept throughout the night. Safety checksmaintained. [facility] HospitalFwwwal72-03-5332 Nurse Note* Magaly Chowdhury RN - 09/12/2022 1:55 AM EDT Pt cooperative with nursing care and med compliant. Withdrawn to room in bed. Bed alarm in place, urinal at bedside. Denies SI/HI/AVH. Pt tremors have improved but still very tremulous. Pt encouragedto make needs known to staff. Call light within reach. Pt slept throughout the night. Safety checksmaintained. documented in this encounterSKeenan Private HospitalSkmpdl20-01-9883 Plan of care note* Care Plan - [...] Goal: Free from restraint events Outcome: Progressing 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 PMH: psoriasis, [...] He has a history of IOP at [facility] and [facility] in [place]. He has a history of a psychiatric [...] all unit groups Robyn Edmond APRN DNP 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 PMH: psoriasis, [...] He has a history of IOP at [facility] and [facility] in [place]. He has a history of a psychiatric [...] Robyn Edmond APRN DNP documented in this [facility]06-13-2023 Hospital Discharge instructions* Discharge Instr - Other [...] National Suicide Prevention Hotline if needed at: 1-430-122-INYR (1620) Please call the following number should you have questions regarding your discharge or aftercare appointments: [facility] documented in this [facility]06-13-2023 Note* Care Coordination - BENNIE Solis - [...] He has previous [facility] of [facility] [place] [facility]. Patient has [...] as an adult. Patient denies any history [place] or status. Family Constellation/Childhood History: Patient reports that he is currently to his living in [facility]. Patient reports that he has 3 biological children and 4 stepchildren. Patient reports that his father in his 11 years old. Patient did not report his mother is stillalive currently. Patient was born and raised in [place], [place] by his mother and father. 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 Patient denies SSI/SSD. Cultural/Spirituality/Leisure: Patient denies any cultural needs or concerns at the current time. Patient denies identify any hinduism preference. It is unknown if patient is [...] look like. Patient isopen to working with INTEGRATED LOGISTICS PROGRAMS DIRECTOR to identify an aftercare plan. Patient is encouraged to engage in all activities that are offered to him while he is on the unit. Patient not report anything additional at current time. Patient encouraged to seek out unit staff or INTEGRATED LOGISTICS PROGRAMS DIRECTOR should he identify any additional needsor concerns. Comment: Please note this report has been produced using speech recognition software and may contain errors related to that system including errors in grammar, punctuation, and spelling, as well as words and phrases that may be inappropriate. If there are any questions or concerns please feel free to contact the dictating provider for clarification. [facility] HospitalNqrink91-60-8837 Note* Care Coordination - BENNIE Solis - [...] seen in January 2021 Where patient left [place]. Presenting Problem: Patient presented to the ED [...] He has previous history of engagement with [facility] in [place] for outpatient mental health treatment. Patient has [...] as an adult. Patient denies any history [place] or status. Family Constellation/Childhood History: Patient reports that he is currently to his living in [facility]. Patient reports that he has 3 biological children and 4 stepchildren. Patient reports that his father in his 11 years old. Patient did not report his mother is stillalive currently. Patient was born and raised in [place], [place] by his mother and father. 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 Patient denies SSI/SSD. Cultural/Spirituality/Leisure: Patient denies any cultural needs or concerns at the current time. Patient denies identify any hinduism preference. It is unknown if patient is [...] look like. Patient isopen to working with INTEGRATED LOGISTICS PROGRAMS DIRECTOR to identify an aftercare plan. Patient is encouraged to engage in all activities that are offered to him while he is on the unit. Patient not report anything additional at current time. Patient encouraged to seek out unit staff or INTEGRATED LOGISTICS PROGRAMS DIRECTOR should he identify any additional needsor concerns. Comment: Please note this report has been produced using speech recognition software and may contain errors related to that system including errors in grammar, punctuation, and spelling, as well as words and phrases that may be inappropriate. If there are any questions or concerns please feel free to contact the dictating provider for clarification. T [facility] HospitalIgkkgd68-75-1711 Emergency department Note* Kristina Barajas RN - 09/10/2022 7:41 PM EDT Patient went to floor at shift change prior to this RN being able to see patient. Patient to floor with protective services and transport with belongings and papers. Report was completed by TISH Pete prior to this nurse shift. Kristina Barajas RN 09/10/221940 [facility] HospitalHmpans23-76-5856 Emergency department Note* Kristina Barajas RN - [...] Valadez RN. Juan R Garcia RN 09/10/22 1831 * Juan R Garcia RN - 09/10/2022 6:18 PM EDT Belonging check performed via protective services. 1 personal belonging bag. Pt wanded and placed into inpatient gown. Gripper socks provided. Bagged lunch provided. Contract signed. Juan R Garcia RN 09/10/22 0402 * Juan R Garcia RN - 09/10/2022 [...] this time. JuanR Garcia RN 09/10/22 1551 * Juan R Garcia RN - 09/10/2022 2:23 PM EDT Pt returned from CT. Juan R Garcia RN 09/10/22 1424 * Triston Abraham MD - 09/10/2022 12:02 PM EDT [facility] EMERGENCY DEPT EMERGENCY DEPARTMENT ENCOUNTER Pt Name: [...] CYST REMOVAL face EGD (HISTORICAL) 07/23/2022 Dr. Estrella-[facility] UPPER GASTROINTESTINAL ENDOSCOPY 09/27/2021 normal WISDOM [...] rectal cancer; dx after age 50 Other (40082) Mother alcoholism Other (12920) Father h/o rheumatic fever, cardiac arrest due to bee sting Other (22365) Sister agoraphobia SOCIAL HISTORY Social History Socioeconomic [...] In compliance with this authorization, please visit www.fda.gov/media/792276/download or www.fda.gov/media/110701/download to access the applicable information sheets. CK [...] Triston Abraham MD PATRICIA Emergency Medicine Physician [facility] Triston Abraham MD 09/10/22 1611 documented in this encounterSKeenan Private HospitalCeriup48-67-8057 Emergency department Note* Juan R Garcia RN - 09/10/2022 7:28 PM EDT Report to Kristina THOMPSON. Juan R Garcia RN 09/10/[address] [facility] HospitalIkcpjg34-00-3124 Emergency department Note* Juan R Garcia RN - 09/10/2022 6:35 PM EDT Report to Beena Garcia RN 09/10/[address] [facility] HospitalKyhjlj07-47-5416 Emergency department Note* Juan R Garcia RN - 09/10/2022 6:18 PM EDT Belonging check performed via protective services. 1 personal belonging bag. Pt wanded and placed into inpatient gown. Gripper socks provided. Bagged lunch provided. Contract signed. Juan R Garcia RN 09/10/22 0274 [address]Fvqtrj37-31-9296 Emergency department Note* Juan R Garcia RN - 09/10/2022 4:58 PM EDT Pt remains asleep at this time in no acute distress. Juan R Garcia RN 09/10/22 1658 [address]Vrxkub21-52-1944 Emergency department Note* Juan R Garcia RN - 09/10/2022 4:[address] Abraham, no phenobarbital at this time. Juan R Garcia RN 09/10/22 1609 [address]Jqyxju63-71-8793 Emergency department Note* Juan R Garcia RN - 09/10/2022 3:41 PM EDT Pt desatting upon falling asleep. Pt placed on 4L O2 at this time. Juan R Garcia RN 09/10/22 1551 [address]Gbwvut83-66-1526 Emergency department Note* Juan R Garcia RN - 09/10/2022 2:23 PM EDT Pt returned from CT. Juan R Garcia RN 09/10/[address] [facility] HospitalHtxbnc22-98-8716 Physician Emergency department Note* Triston Abraham MD - 09/10/2022 12:02 PM EDT [facility] EMERGENCY DEPT EMERGENCY DEPARTMENT ENCOUNTER Pt Name: [...] CYST REMOVAL face EGD (HISTORICAL) 07/23/2022 Dr. Estrella-[facility] UPPER GASTROINTESTINAL ENDOSCOPY 09/27/2021 normal WISDOM [...] rectal cancer; dx after age 50 Other (52627) Mother alcoholism Other (82881) Father h/o rheumatic fever, cardiac arrest due to bee sting Other (24037) Sister agoraphobia SOCIAL HISTORY Social History Socioeconomic [...] In compliance with this authorization, please visit www.fda.gov/media/401637/download or www.fda.gov/media/833527/download to access the applicable information sheets. CK [...] mis-transcribed.) MD ROXANA LyonsA Emergency Medicine Physician [facility] Triston Abraham MD 09/10/[address] [facility] HospitalAlggwm01-19-5516 History of Present illness Narrative* Lynda Rasheed MD - 08/01/2022 8:20 AM EDT Images from the original note were not included. [facility] FAMILY MEDICINE [address] [facility] [address] Dept: [phone] Dept Loc: [phone] Reason for Visit: Follow-up (Discuss results and [...] morning (before breakfast)., Starting Sat08/01/2022, Normal [place] [facility] 3. Abnormal EKG EKG reviewed from [...] with dysplasia started patient on Protonix - [facility] 6. Screening for colon cancer - [facility] 7. ED (erectile dysfunction) of non-organic origin - [facility] current treatment plan is effective, no [...] meetings [facility] a [facility] patient is agreeable to [...] CYST REMOVAL face EGD (HISTORICAL) 07/23/2022 Dr. Estrella-[facility] UPPER GASTROINTESTINAL ENDOSCOPY 09/27/2021 normal WISDOM TOOTH EXTRACTION Family History Problem Relation Name Age of Onset Depression Sister Cancer Mother colon rectal cancer; dx after age 50 Other (38156) Mother alcoholism Other (07993) Father h/o rheumatic fever, cardiac arrest due to bee sting Other (47155) Sister agoraphobia Health Maintenance Topic Date Due [...] EDT Lynda Rasheed MD documented in this [facility]04-24-2023 Consult note* Isaac Mann MD - 07/23/2022 11:50 AM EDTAssociated Order(s): IP CONSULT TO ADDICTION [facility]IC[facility] Consult service H&P Admit Date: 07/21/2022 Primary [...] 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 Also reports BRB [...] CYST REMOVAL face EGD (HISTORICAL) 07/23/2022 Dr. Estrella-[facility] UPPER GASTROINTESTINAL ENDOSCOPY 09/27/2021 normal WISDOM TOOTH EXTRACTION Family History Problem Relation Name Age of Onset Depression Sister Cancer Mother colon rectal cancer; dx after age 50 Other (84444) Mother alcoholism Other (17371) Father h/o rheumatic fever, cardiac arrest due to bee sting Other (65327) Sister agoraphobia Social History Socioeconomic History Marital [...] 372 ms QTC Interval 468 ms P [place] 50 degrees QRS [place] 44 degrees T Wave [place] 50 degrees [place] Interval 188 ms CBC Collection Time: 07/22/22 [...] ODT OR ondansetron, polyethylene glycol (PEG) 3350 @[id number]@ Plan 1. 1. Alcohol use disorder severe [...] [facility] [...] evaluating detoxification medications, and discussing treatment plan. 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 Also reports BRB [...] CYST REMOVAL face EGD (HISTORICAL) 07/23/2022 Dr. Estrella-[facility] UPPER GASTROINTESTINAL ENDOSCOPY 09/27/2021 normal WISDOM TOOTH EXTRACTION Family History Problem Relation Name Age of Onset Depression Sister Cancer Mother colon rectal cancer; dx after age 50 Other (30410) Mother alcoholism Other (67031) Father h/o rheumatic fever, cardiac arrest due to bee sting Other (52818) Sister agoraphobia Social History Socioeconomic History Marital [...] 372 ms QTC Interval 468 ms P [place] 50 degrees QRS [place] 44 degrees T Wave [place] 50 degrees [place] Interval 188 ms CBC Collection Time: 07/22/22 [...] ODT OR ondansetron, polyethylene glycol (PEG) 3350 @[id number]@ Plan 1. 1. Alcohol use disorder severe [...] [facility] him [...] rectal cancer; dx after age 50 Other (08276) Mother alcoholism Other (86145) Father h/o rheumatic fever, cardiac arrest due to bee sting Other (25748) Sister agoraphobia MEDICATIONS PRIOR TO ADMISSION: Current [...] DO 07/22/2022 10:49 AM documented in this [facility]04-24-2023 Hospital course Narrative* Redd Teixeira MD - [...] AMA Follow up with Lynda Rasheed MD [address] [place] [address] INSTRUCTIONS TO MA/SW: Please call patient on [...] MD 07/23/2022, 12:20 PM documented in this [facility]04-24-2023 History of Present illness Narrative* Sera Garcia [...] were not included. Hospitalist Progress Note 07/22/2022 [phone]: Please secure chat me for patient care issues. [phone]: Please secure chat [facility] Hospitalist for any issues. Subjective: Admit Date: [...] advance the diet. Adult diet Full liquid @[id number]@ 24HR INTAKE/OUTPUT: Intake/Output Summary (Last 24 hours) [...] Redd Teixeira MD Division of Hospitalist Medicine [employer] [facility] PAGER: Epic chat * Keila Holcomb RN - 07/22/2022 10:00 AM EDT AAOX3, responds appropriately but vague. Requesting liquids, pt taking sips with meds, no apparent swallowing deficit or dysphagia noted. Will cont to monitor. documented in this [facility]04-24-2023 Note* Perioperative Nursing Note - Radha Bonilla RN - 07/23/2022 10:11 AM EDT POST ENDOSCOPY PROCEDURE TRANSFER REPORT Procedure completed: egd Findings:see op note Specimens obtained: no Medications administered: see emar Additional Info: see emar For additional Questions please call Endoscopy at [phone]. Thank You! [facility] HospitalQdcovh71-58-8315 Miscellaneous Notes* Perioperative Nursing Note - Radha Bonilla RN - 07/23/2022 10:11 AM EDT POST ENDOSCOPY PROCEDURE TRANSFER REPORT Procedure completed: egd Findings:see op note Specimens obtained: no Medications administered: see emar Additional Info: see emar For additional Questions please call Endoscopy at [phone]. Thank You! * Op Note - Jose Estrella DO - 07/23/2022 9:24 AM EDT [facility] Name: Maria De Jesus Hogan Procedure Date: 07/23/2022 9:24 AM Gender: Male Date of : 1965 Age: 56 Admit Type: Inpatient Note Status: Finalized Endoscopist: Jose Estrella DO, [id number] Procedure: Upper GI endoscopy Indications: Hematemesis Findings: [...] immediate complications. 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 All rights reserved. The codes documented in this report are preliminary and upon cleaning team member review may be revised to meet current [...] Patient Information Source of Information: Patient, Patient End [place] Name/Contact Information: JUNE SAMIRA [phone] SPOUSE Cognition/Language: WFL - Within Functional Limits Permission given to speak with patient customer field representative/caregiver as indicated: Yes Confirmation of Payer [...] Prescription Coverage: Yes [facility] [place] Medication Management: Independent Transportation/Shopping: Independent Transportation Mode: [...] when medically stable. Will update social work program coordinator to provide with community resources. Tentative discharge plan is home with family when medically stable. Keila Yo RN * Care Plan - Nick Gordon RN - 07/22/2022 2:06 AM EDT Problem: Pain - Adult Goal: Verbalizes/displays adequate comfort level or baseline comfort level Outcome: Progressing Problem: Safety - Adult Goal: Free from fall injury Outcome: Progressing documented in this [facility]04-24-2023 Note* Op Note - Jose Estrella DO - 07/23/2022 9:24 AM EDT [facility] Patient Name: Maria De Jesus Hogan Procedure Date: 07/23/2022 9:24 AM Gender: Male Date of : 1965 Age: 56 Admit Type: Inpatient Note Status: Finalized Endoscopist: Jose Estrella DO, [id number] Procedure: Upper GI endoscopy Indications: Hematemesis Findings: [...] immediate complications. Procedure Code(s): --- Professional --- 82985, Esophagogastroduodenoscopy, flexible, transoral; diagnostic, including collection of specimen(s) by brushing or washing, when performed (separate procedure) --- Technical --- 93485, Esophagogastroduodenoscopy, flexible, transoral; diagnostic, including collection of specimen(s) by brushing or washing, when performed (separate procedure) Diagnosis Code(s): --- Professional --- K22.70, Lombardo's esophagus without dysplasia K44.9, Diaphragmatic hernia without obstruction or gangrene K92.0, Hematemesis --- Technical --- K22.70, Lombardo's esophagus without dysplasia K44.9, Diaphragmatic hernia without obstruction or gangrene K92.0, Hematemesis CPT copyright 2021 [employer]. All rights reserved. The codes documented in this report are preliminary and upon cleaning team member review may be revised to meet current compliance requirements. Attending Participation: I personally performed the entire procedure. Jose Estrella DO 07/23/2022 9:53:58 AM This report has been signed electronically. Number of Addenda: 0 Note Initiated On: 07/23/2022 9:[address] [facility] HospitalYfteop60-00-5642 Note* Addendum Note - Lynda Rasheed MD - 07/23/2022 8:57 AM EDTAddended by: LYNDA RASHEED on: 07/23/2022 08:57 AM Modules accepted: Orders [facility]Nljmnf95-29-4458 Note* Addendum Note - Lynda Rasheed MD - 07/23/2022 8:57 AM EDTAddended by: LYNDA RASHEED on: 07/23/2022 08:57 AM Modules accepted: Orders [place] [id number] Telephone encounter Note* Telephone Encounter - Lynda Rasheed MD - 07/23/2022 8:57 AM EDT sent [place] [id number] Miscellaneous Notes* Addendum Note - Lynda Rasheed MD - 07/23/2022 8:57 AM EDTAddended by: LYNDA RASHEED on: 07/23/2022 08:57 AM Modules accepted: Orders * Telephone Encounter - Lynda Rasheed MD - 07/23/2022 8:57 AM EDT sent * Telephone Encounter - Clarita Coppola LPN [...] okay to send in. documented in this [facility]04-23-2023 Note* Care Coordination - Keila Yo RN - 07/22/2022 12:25 PM EDT Care Managment Initial Assessment Date: 07/22/2022 Patient Name: Maria De Jesus Hogan : 1965 Patient Information Source of Information: Patient, Patient End [place] Name/Contact Information: JUDY HOGAN [phone] SPOUSE Cognition/Language: WFL - Within Functional Limits Permission given to speak with patient customer field representative/caregiver as indicated: Yes Confirmation of Payer [...] Prescription Coverage: Yes [facility]acy Used: [facility] [place] Medication Management: Independent Transportation/Shopping: Independent Transportation Mode: [...] when medically stable. Will update social work program coordinator to provide with community resources. Tentative discharge plan is home with family when medically stable. Keila Yo RN T [facility] HospitalCbrsgy13-93-6787 Consult note* Jose Estrella, - 07/22/2022 10:49 [...] rectal cancer; dx after age 52 Other (72550) Mother alcoholism Other (75505) Father h/o rheumatic fever, cardiac arrest due to bee sting Other (90603) Sister agoraphobia MEDICATIONS PRIOR TO ADMISSION: Current [...] by Jose Estrella DO 07/22/2022 10:49 AM [employer] Work Phone: 1(484) 547-793604-23-2023 Plan of care note* Care Plan - Nick Gordon RN - 07/22/2022 2:06 AM EDT Problem: Pain - Adult Goal: Verbalizes/displays adequate comfort level or baseline comfort level Outcome: Progressing Problem: Safety - Adult Goal: Free from fall injury Outcome: Progressing SeatIDXkgxgh92-80-8927 History and physical note* Redd Teixeira MD [...] rectal cancer; dx after age 50 Other (14993) Mother alcoholism Other (36335) Father h/o rheumatic fever, cardiac arrest due to bee sting Other (19577) Sister agoraphobia Medications Prior to Admission: No [...] H&P to the patient's PCP. Thank you. [facility] HospitalNkzwnw45-62-8872 History and physical note* Redd Teixeira MD [...] rectal cancer; dx after age 50 Other (48559) Mother alcoholism Other (69578) Father h/o rheumatic fever, cardiac arrest due to bee sting Other (56682) Sister agoraphobia Medications Prior to Admission: No [...] Extended Emergency Contact Information Primary Emergency Contact: [place],June Relation: Spouse Code status: Full Code -see [...] patient's PCP. Thank you. documented in this [facility]04-22-2023 NoteNOTE: This result is for medical treatment only. Analysis performed using non-forensic procedures. [facility] HospitalFhebvu18-32-4411 Emergency department Note* Harika Gay RN - 07/21/2022 5:15 PM EDT Pt placed on 3LNC for O2 support. Saturations as low as 74%RA while sleeping. Saturations recoveredto 90% on 3LNC while sleeping Harika Gay RN 07/21/221716 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 Also reports BRB [...] otherwise acutely negative except as in the [place] [place]. PAST MEDICAL HISTORY Past Medical History: Diagnosis [...] rectal cancer; dx after age 50 Other (45656) Mother alcoholism Other (42703) Father h/o rheumatic fever, cardiac arrest due to bee sting Other (45332) Sister agoraphobia SOCIAL HISTORY Social History Socioeconomic [...] steatosis. Sigmoid diverticulosis. Report Dictated on Workstation: [employer] Electronically Signed By: Joon Foley Electronically Signed [...] In compliance with this authorization, please visit www.fda.gov/media/653704/download or www.fda.gov/media/417825/download to access the applicable information sheets. LIPASE [...] Culture. 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 Also reports BRB [...] otherwise acutely negative except as in the [place]. PAST MEDICAL HISTORY Past Medical History: Diagnosis [...] rectal cancer; dx after age 52 Other (64413) Mother alcoholism Other (09237) Father h/o rheumatic fever, cardiac arrest due to bee sting Other (91375) Sister agoraphobia SOCIAL HISTORY Social History Socioeconomic [...] steatosis. Sigmoid diverticulosis. Report Dictated on Workstation: [id number] Electronically Signed By: Joon Foley Electronically Signed [...] In compliance with this authorization, please visit www.fda.gov/media/975975/download or www.fda.gov/media/479195/download to access the applicable information sheets. LIPASE [...] Culture. Procedure Abnormality Status --------- ------ Complete Urinalysis[[id number]] Abnormal Final result Please view results for [...] changes Discussions with other clinicians: Admitting team [facility] Chronic conditions impacting care: Hypertension Social determinants [...] Emergency Medicine Provider Arsenio Villalta DO 07/21/221900 [facility] HospitalCeqlak15-53-6562 Telephone encounter Note* Telephone Encounter - Clarita Coppola LPN - 07/20/2022 1:00 PM EDT Letter sent. [facility] HospitalYcbkmq51-93-1690 Telephone encounter Note* Telephone Encounter - Jaja [...] office visit: n/a Updated/Validated preferred pharmacy: Yes [facility] [id number] [phone] Patient instructed to contact the pharmacy prior [...] of last refill (see medication tab): 06/12/2022 [facility] HospitalFgczrn18-27-1149 Miscellaneous Notes* Telephone Encounter - Jaja Flowers - 07/16/2022 12:50 PM EDT Pt is also requesting refills of pantoprazole (ProtoNix) 40 MG EC tablet and calcipotriene (Dovonex) 0.005 % cream. Pt advised that there should be refills of the meds at his pharmacy. Ordering provider: Dr. Rasheed Date of last office visit: 06/12/2022 Date of next office visit: n/a Updated/Validated preferred pharmacy: Yes [facility] [id number] [address] Patient instructed to contact the pharmacy prior [...] (see medication tab): 06/12/2022 documented in this [place] [address]-17-2023 Telephone encounter Note* Telephone Encounter - Kristina Fan MA - 07/16/2022 11:25 AM EDT Last seen:06/12/22 Scheduled:n/a [address]xkhsl19-07-3685 Miscellaneous Notes* Telephone Encounter - Kristina Fan MA - 07/16/2022 11:25 AM EDT Last seen:06/12/22 Scheduled:n/a documented in this [address]14-2023 Telephone encounter Note* Telephone Encounter - Clarita Coppola LPN - 07/13/2022 11:58 AM EDT Phone OOS [address]bf[address]w23-88-5320 Telephone encounter Note* Telephone Encounter - Kristina Fan MA - 07/12/2022 11:40 AM EDT Phone OOS [address]enuzx58-96-2952 Telephone encounter Note* Telephone Encounter - Lynda Rasheed MD - 07/11/2022 4:56 PM EDT No [address]Rtiqez58-43-2291 Telephone encounter Note* Telephone Encounter - Clarita Coppola LPN - 07/11/2022 4:16 PM EDT Is there more to #3? [address]Aifrkk39-48-7075 Telephone encounter Note* Telephone Encounter - Lynda Rasheed MD - 07/11/2022 3:47 PM EDT 1. X-ray of the shoulder is normal #2 Sugar is elevated add an A1c. Cholesterol is improving however still elevated. Low-fat diet and exercise recommend medication called Crestor let me know if okay to send in. [address]Jyxyzl54-66-4177 Telephone encounter Note* Telephone Encounter - Lakia Damon MA - 07/11/2022 11:24 AM EDT Can not get though on patients phone. Please read results to pt if he calls in. [address]Bmcxvw05-98-4623 Miscellaneous Notes* Telephone Encounter - Lakia Damon [...] if patient would like. documented in this [facility]04-12-2023 Telephone encounter Note* Telephone Encounter - Lynda Rasheed MD - 07/11/2022 9:45 AM EDT Xray of the back shows arthritis, if patient in still in pain I would recommend physical theray. Let me know if patient would like. [facility] HospitalIrcfdx68-68-7253 History of Present illness Narrative* Lynda Rasheed MD - 06/12/2022 10:00 AM EDT Images from the original note were not included. [facility] [address] [facility] [address] Dept: [phone] Dept Loc: [phone] Reason for Visit: Annual Exam and Shoulder [...] views 5. Screening [place] [facility] General Surgery - Sotero Madsen MD - PSA Screening 6. Chronic pain of both shoulders - XR shoulder 2+ views right 7. Alcohol abuse Again I offered patient to get set up for referral to [facility] addiction program at this time he would like to hold off. He is interested in possibly getting involved with a group through [place] for alcohol. He states that he will [...] possibly join an outpatient intense treatment in [place]. He states he will call and get [...] pain. He states the he was in assisted for approximately 6 months he slept on [...] rectal cancer; dx after age 52 Other (38443) Mother alcoholism Other (80858) Father h/o rheumatic fever, cardiac arrest due to bee sting Other (42941) Sister agoraphobia Health Maintenance Topic Date Due [...] Radiology ACCESSION EXAM DATE/TIME PROCEDURE ORDERING PROVIDER [id number] 09/26/2021 19:48 EDT CR Chest Portable [id number] -DIPESH BECKMAN CPT code 91961 Reason For Exam (CR Chest Portable) epigastric [...] provider. Lynda Rasheed MD documented in this [facility]07-01-2022 NoteHospitalist Discharge Summary Maria De Jesus Hogan [...] MD Division of Hospitalist Medicine Inpatient Medical Services[place] 09/29/2021, 2:37 [facility]07-01-2022 History of Present illness Narrative* Katherine [...] mg 3 mg IntraVENous Q1H PRN Sherin Saclido MD 3 mg at 09/27/21 0604 Or [...] were not included. Hospitalist Progress Note 09/28/[phone]: Please page me ([phone]) for patient care issues. [phone]: Please page [facility] night Hospitalist for any issues. Subjective: [...] MD Division of Hospitalist Medicine Inpatient Medical Services/[facility] PAGER: [phone] * Katherine Gotti MD - 09/28/2021 12:05 [...] by chemical dependency services. Patient remains on tsbvxqbhgcawz680 mg IV every 4 hours, lorazepam as [...] Friends and Family: Not on file Attends Hinduism Services: Not on file Active Member of [...] out patient treatment in the past at [facility] per Dr. Stokes notes. Patient is actively [...] For additional Questions please call Endoscopy at [phone]. Thank You! documented in this [email or web address] Work Phone: 1(771) 549-391003-11-2022 [facility] Discharge Summary with Discharge DayProgress Note and [...] Your Medications These medications were sent to [facility] [address] - P [phone] - F [phone] [address] [facility] [address] ? amLODIPine 5 MG tablet ? pantoprazole 40 MG tablet ? predniSONE 10 MG tablet DIET: regular ACTIVITY: resum (more content not included)...[facility]03-11-2022 Hospital Discharge instructions* Discharge Instr - Activity* [...] from the original note were not included. [facility] PROGRAMS Addiction Medicine [facility]ensive Out[facility] [phone] [place]: [phone] [place]: [phone] [place]: [phone] Behavioral Health Intensive Outpatient Program [facility]: [phone] [place]: [phone] [facility] [place]: [phone] [place]: [phone] Partial Hospitalization Program [facility]: [phone] Tra[facility]: [phone] [facility]: [phone] (must enroll in IOP first) Alcoholics Anonymous Meetings [email or web address] * Attachments The following attachments cannot be sent through Care Everywhere. * 9 Ways to Cut Back on Drinking: Quick List (Irish) * naltrexone (injection) (Irish) documented in this encounterSUMMA Work Phone: [phone]) [phone] Hospital course Narrative* Rob Lopez, DO - 06/09/2021 2:56 PM EST Images from the original note were not included. [facility] Discharge Summary with Discharge DayProgress [...] Your Medications These medications were sent to [facility] [address] - [phone] - F [phone] [address] [facility] [address] amLODIPine 5 MG tablet pantoprazole 40 MG tablet predniSONE 10 MG tablet DIET: regular ACTIVITY: resume regular activity SIGNIFICANT DIAGNOSTIC STUDIES: CT abd/pelvis: 1. Intramural gas near the cecum and ascending colon, compatible with pneumatosis coli. 2. Hepatic steatosis. 3. Additional chronic findings as above. COMPLEXITY OF FOLLOW UP: [x] Moderate Complexity: follow up within 7-14 calendar days (66282) [] Severe Complexity: follow up within 7 calendar days (83634) FOLLOW UP TESTING, PENDING RESULTS ORREFERRALS AT [...] TIME: > 30 minutes documented in this [employer] Work Phone: [phone]) 993-472903-11-2022 History of Present illness Narrative* Jonatan Mckeon [...] Tomography ACCESSION EXAM DATE/TIME PROCEDURE ORDERING PROVIDER [id number] 06/06/2021 17:[address] Abdomen/Pelvis w/ IV [id number] CATALINO ROTH Contrast (IV Onl CPT code 97924 Q9967 Reason For Exam (CT Abdomen/Pelvis w/IV [...] - labs/tests/tasks to review: H/H, pain. - windows consultant recommendations: GI. - final plan for further addiction treatment at: not interested in formal chem dep treatment. May be interested in going to 12 step meetings. Signing off. Patient does not have to stay for phenobarbital taper to completely finish if his symptoms are minimal. This can be per primary discretion. Please contact concrete boom operator ADM doctor with any issues. Jonatan Mckeon MD Addiction Medicine 06/09/2021 at 12:34 PM I spent over 51% of total time 25 minutes counseling or coordinating care regarding patient's chemical dependency status. * Robyn Edmond APRN - ROTOPRINTER - 06/08/2021 4:24 PM EST Addiction Team [...] AA Meeting attendanc Robyn Edmond DNP, APRN [facility] * Rob Lopez DO - 06/08/2021 2:02 PM EST Images from the original note were not included. [facility] Progress Note Maria De Jesus [...] reports 6AM-6PM please page: 6PM-6AM please page: [facility] Internal Medicine * Dani Bojorquez DO - [...] Dr. Bojorquez. Keshia Gomez MD Surgery PGY-1 #5018 PAGING: From -6p (- weekends): Page me at [phone] From 6p-6a (- weekends): - Surg ICU [...] Please call the Main Endoscopy Dept at [phone] for questions. * Jazmín Wei MD - [...] use C02 for exam. Sanjuana GALVEZ Gastroenterology * Rob Lopez DO - 06/07/2021 1:17 PM EST Assuming care of this patient. H&P by plant security guard after midnight was reviewed. General surgery and [...] slow advancement to likely goal of GI [place]/GERD with GI Soft component, monitoring pt's tolerance; [...] & CVA presented as a transfer from [facility] ED for need of higher level of care. Pt had been in his usual state of health prior to presentation to [place] facility, noticed while he was drinking that [...] LFTs elevated and pt then transferred to [facility]. Appears pt has had similar bleeding in [...] and snoring at time of RD visit, [facility] this [facility]. Malnutrition Assessment: Malnutrition Status: Insufficient data (? 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, currently pt NPO pending GI recs/work-up, per chart appears pt himself has reported weight fluctuations/loss (of upwards 20#') when drinking more heavily, most weight hx in chart appears stated, no overt severe losses observed) Estimated Daily Nutrient Needs: Energy (kcal): 0775-5874 kcal/day; Weight Used for Energy Requirements: [place] Protein (g): 78-94 gm protein/day; Weight Used for Protein Requirements: [place] (1.0-1.2 gm protein/kg) Fluid (ml/day): per MD; [...] fluctuations in weight when drinking more heavily)) [place] Body Weight: 172 lbs; % [place] Body Weight BMI: 28.59 Adjusted Body Weight: [...] Dr. Bojorquez. Keshia Gomez MD Surgery PGY-1 #9113 PAGING: From - (-s): Page ky at [phone] From - (-s): - Surg ICU Patients: [...] Work Phone: Discharge summary Author Bryan Cox [facility] Note Date/Time September 20, 2024 10:2 1am [facility] Medical Records Department [address] [place] [address] Discharge Summary 09/20/24 1017 MR#: [id number] Acct: [id number] Name: MARIA DE JESUS HOGAN Rep #:[id number] : 1965 58 From: Bryan Cox DO PCP: OUT OF TOWN DOCTOR Status:ADM IN Location: [facility] WP542-5 Providers Date of Admission: 09/17/24 Primary Care [...] Patient plans to follow-up with pedro Hoyt [facility]. Weight / BMI Weight Weight: 98.5 kg [...] PO DAILY Qty: 30 0RF Rx Instructions: Xofa-rkn-qkfolvc. No prescription required. Continued cyclobenzaprine 10 mg [...] Self Care Charges/Coding Visit Charges Inpatient E&M: 52803 Disch Hosp 09/20/24 1021 <Electronically signed by Bryan Cox DO> Cosigner Signature (if applicable): CC: Dr. Bryan Cox, DO~ Signed [facility] Work Phone: Evaluation note* Diagnosis Colon cancer [...] in right shoulder [facility]* Diagnosis Chronic left shoulder pain Pain in joint, shoulder region Elevated liver enzymes Other nonspecific abnormal serum enzyme levels Psoriasis Other psoriasis [facility]* Diagnosis Chronic left shoulder pain Pain in joint, shoulder region [facility]* Diagnosis Hyperglycemia- Primary Other abnormal glucose [facility]* Diagnosis Hematemesis with nausea- Primary Hematemesis with nausea Alcohol withdrawal syndrome without complication (HCC) documented [facility]* Diagnosis Uncomplicated alcohol dependence (HCC)- Primary Elevated liver enzymes Other nonspecific abnormal serum enzyme levels Abnormal EKG Nonspecific abnormal electrocardiogram (ECG) (EKG) SOB (shortness of breath) Shortness of breath Lombardo's esophagus with dysplasia Screening for colon cancer Special screening for malignant neoplasms, colon 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 [facility]* Diagnosis Alcohol use disorder- Primary Alcohol use disorder Alcohol withdrawal syndrome without complication (HCC) Alcohol withdrawal syndrome without complication (HCC) [facility]* Diagnosis Elevated liver enzymes Other nonspecific abnormal serum enzyme levels documented [facility]* Diagnosis Chronic left shoulder pain Pain in joint, shoulder region documented [facility]* Diagnosis Chronic left shoulder pain- Primary Pain in joint, shoulder region Elevated liver enzymes Other nonspecific abnormal serum enzyme levels Psoriasis Other psoriasis Screening for colon cancer Special screening for malignant neoplasms, colon Alcohol abuse Nondependent alcohol abuse, unspecified drinking behavior documented [facility]* Diagnosis Chronic left shoulder pain- Primary Pain in joint, shoulder region Elevated liver enzymes Other nonspecific abnormal serum enzyme levels Psoriasiform seborrheic dermatitis Other psoriasis Screening for colon cancer Special screening for malignant neoplasms, colon Alcohol abuse Nondependent alcohol abuse, unspecified drinking behavior documented [facility]* Diagnosis Abnormal levels of other serum enzymes- Primary documented [facility]* Diagnosis Low back pain, unspecified- Primary Pain in left shoulder Other chronic pain Pain in right shoulder Low back pain, unspecified Pain in left shoulder Other chronic pain Pain in right shoulder [facility]* Diagnosis Alcohol use disorder, severe (HCC)- Primary Alcohol withdrawal syndrome with complication (HCC) Encounter for monitoring naltrexone therapy [facility]* Diagnosis Hyperglycemia- Primary Other abnormal glucose Abnormal CBC Other abnormal blood chemistry [facility]* Diagnosis Screening for colon cancer- Primary Special screening for malignant neoplasms, colon Lombardo's esophagus determined by endoscopy Psoriasiform seborrheic dermatitis Other psoriasis Alcohol use disorder, severe (HCC) Lumbar back pain with radiculopathy affecting lower extremity Cigarette smoker Tobacco use disorder [facility]* Diagnosis Abnormal levels of other serum enzymes- Primary [facility]* Diagnosis Chronic left shoulder pain Pain in joint, shoulder region documented in this encounter [facility] note* Diagnosis Hyperglycemia, unspecified- Primary Other specified abnormal findings of blood chemistry documented in this encounter [facility] note* Diagnosis Alcohol withdrawal syndrome without complication (HCC)- Primary Alcoholism (CMS/HCC) (HCC) Other and unspecified alcohol dependence, unspecified drinking behavior Alcohol withdrawal syndrome without complication (HCC) Severe alcohol use disorder (HCC) Cigarette smoker Tobacco use disorder documented in this encounter [facility] note* Diagnosis Pain, dental- Primary documented in this encounter [facility] note* Diagnosis Dental abscess- Primary Periapical abscess without sinus documented in this encounter [facility] note* Diagnosis Contusion of left middle finger without damage to nail, initial encounter- Primary documented in this encounter [facility] note* Diagnosis Chronic left shoulder pain Pain in joint, shoulder region documented in this encounter [facility] note* Diagnosis Alcohol withdrawal syndrome, uncomplicated (HCC)- Primary Alcohol withdrawal syndrome, uncomplicated (HCC) documented in this encounter [facility] note* Diagnosis Psoriasiform seborrheic dermatitis Other psoriasis documented in this encounter [facility] note* Diagnosis Alcohol withdrawal syndrome without complication (HCC)- Primary Alcohol abuse Nondependent alcohol abuse, unspecified drinking behavior Severe alcohol use disorder (HCC) Cigarette smoker Tobacco use disorder [facility]* Diagnosis Chronic left shoulder pain Pain in joint, shoulder region [facility] this [facility]* Diagnosis Alcohol withdrawal syndrome without complication (HCC)- Primary Alcohol withdrawal syndrome without complication (HCC) Chronic left shoulder pain Pain in joint, shoulder region Severe alcohol use disorder (HCC) documented in this encounter [facility] note* Diagnosis Chronic left shoulder pain Pain in joint, shoulder region [facility] this [facility]* Diagnosis 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)- Primary 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) [facility] [facility] note* Diagnosis Chronic left shoulder pain Pain in joint, shoulder region documented in this encounter [facility] note* Diagnosis Alcohol withdrawal with inpatient treatment without complication (HCC)- Primary Alcohol abuse Nondependent alcohol abuse, unspecified drinking behavior Severe alcohol use disorder (HCC) documented in this encounter [facility] note* Diagnosis Severe alcohol use disorder (HCC) documented in [facility] encounter [facility]* Diagnosis Screening PSA (prostate specific antigen)- Primary Special screening for malignant neoplasm of prostate Psoriasiform seborrheic dermatitis Other psoriasis Elevated liver enzymes Other nonspecific abnormal serum enzyme levels Screening for colon cancer Special screening for malignant neoplasms, colon Current smoker documented in this encounter [facility]* Diagnosis Current smoker [facility]* Diagnosis Pulmonary nodule- Primary Other diseases of lung, not elsewhere classified documented in this encounter [facility]* Diagnosis Pulmonary emphysema, unspecified emphysema type (HCC)- Primary Pulmonary nodule Other diseases of lung, not elsewhere classified Cigarette nicotine dependence with other nicotine-induced disorder Alcohol abuse Nondependent alcohol abuse, unspecified drinking behavior documented in this encounter [facility]* Diagnosis Elevated liver enzymes- Primary Other nonspecific abnormal serum enzyme levels Chronic left shoulder pain Pain in joint, shoulder region Psoriasis Other psoriasis Lumbar back pain Lumbago Screening for colon cancer Special screening for malignant neoplasms, colon Chronic pain of both shoulders Alcohol abuse Nondependent alcohol abuse, unspecified drinking behavior documented in this encounter [facility]* Diagnosis Alcoholic intoxication without complication (CMS/HCC) (HCC)- Primary Alcoholic intoxication without complication (CMS/HCC) (HCC) documented in this encounter [facility]* Diagnosis Alcohol withdrawal syndrome with complication, with unspecified complication (HCC)- Primary Alcohol use disorder Alcohol withdrawal syndrome with complication, with unspecified complication (HCC) Severe alcohol use disorder (HCC) 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 Cigarette smoker Tobacco use disorder Elevated liver enzymes Other nonspecific abnormal serum enzyme levels documented in this encounter [facility]* Diagnosis Alcohol abuse- Primary Nondependent [...] esophagus with esophagitis documented in this encounter [facility]* Diagnosis Closed head injury, initial encounter- Primary Alcoholic intoxication without complication (CMS/HCC) (HCC) documented in this encounter [facility]* Diagnosis Psoriasiform seborrheic dermatitis Other psoriasis Elevated liver enzymes Other nonspecific abnormal serum enzyme levels [facility] Diagnosis Alcohol withdrawal with inpatient treatment, uncomplicated (HCC)- Primary Alcohol use disorder Alcohol withdrawal with inpatient treatment, uncomplicated (HCC) Severe alcohol use disorder (HCC) Severe alcohol use disorder (HCC) [facility]* Diagnosis Pulmonary nodule Other diseases of lung, not elsewhere classified [facility] Diagnosis Elevated LFTs- Primary Other [...] unspecified drinking behavior [facility]* Diagnosis Psoriasiform seborrheic dermatitis Other psoriasis Elevated liver enzymes Other nonspecific abnormal serum enzyme levels [facility]* Diagnosis Subcutaneous hematoma- Primary Contusion of dorsum of foot 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* Diagnosis Acute pain associated with herpes zoster- Primary [facility]* Diagnosis Screening for colon cancer- Primary Special screening for malignant neoplasms, colon Psoriasiform seborrheic dermatitis Other psoriasis Elevated liver enzymes Other nonspecific abnormal serum enzyme levels Neuropathy Mononeuritis of unspecified site Herpes zoster with other complication 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 [facility]* Diagnosis Onset Date Resolution Status Admit Date Acute alcohol intoxication acute September 17, 2024 8:05pm Alcoholic hepatitis acute September 17, 2024 8:05pm Desire for detoxification acute September 17, 2024 8:05pm Obesity (BMI 30.0-34.9) acute J une 2024 8:05pm Alcohol abuse chronic September 17, 2024 8:05pm Tobacco dependence chronic August 302024 8:05pm COPD (chronic obstructive pulmonary disease) suspected September 17 8:05pm [facility] Work Phone: Hospital Discharge instructions* Attachments The following attachments cannot be sent through Care Everywhere. * Back: Strain (Irish) documented in this [facility] Work Phone: Hospital Discharge instructions* Attachments The following attachments cannot be sent through Care Everywhere. * Acute Pain Discharge Instructions, Adult (Irish) documented in this [facility] Discharge instructions* Attachments The following attachments cannot be sent through Care Everywhere. * Alcohol Use Disorder Discharge Instructions (Irish) documented in this [facility] Discharge instructions* Attachments The following attachments cannot be sent through Care Everywhere. * Contusion Discharge Instructions (Irish) documented in this [facility] for referral (narrative)* Consultation (Routine) - Pending Review Specialty Diagnoses / Procedures Referred By Carmen patton Referred To Contact Urology Diagnoses ED (erectile dysfunction) of non-organic origin Procedures [place] OFFICE/OUTPATIENT [facility] MDM 60-74 MINUTES Lynad Rasheed MD [address] [place] [address] [facility] Uro [address] [place] [address] [place] [phone] Referral ID Status Reason Start Date Expiration Date Visits Requested Visits Authorized [id number] Pending Review Specialty Services Required 08/01/2022 08/01/2023 1 1 * Consultation (Routine) - Pending Review Specialty Diagnoses / Procedures Referred By Carmen patton Referred To Contact Gastroenterology Diagnoses Elevated liver enzymes Lombardo's esophagus with dysplasia Screening for colon cancer Procedures [place] OFFICE/OUTPATIENT NEW [facility] MDM 60-74 MINUTES Lynda Rasheed MD [address] [place] [address] [facility] Gastro [address] [place] [address] Referral ID Status Reason Start Date Expiration Date Visits Requested Visits Authorized [id number] Pending Review Specialty Services Required 08/01/2022 08/01/2023 1 1 * (Routine) - Incomplete Specialty Diagnoses / Procedures Referred By Contac t Referred To Contact Diagnoses SOB (shortness of breath) Procedures Complete PFT study Lynda Rasheed MD [address] [place] [address] Referral ID Status Reason Start Date Expiration Date V isits Requested Visits Authorized [id number] Incomplete 08/01/2022 01/28/2023 1 1 * Imaging (Routine) - Pending Review Specialty Diagnoses / Procedures Referred By Contac t Referred To Contact Cardiology Diagnoses Abnormal EKG Procedures Transthoracic echocardiogram (TTE) complete with contrast, bubble, strain, and 3D PRN MI ECHO TTHRC R-T 2D W/WOM-MODE COMPL SPEC&COLR D MI TTE W OR WO FOL WCON,Lynda Ruffin MD [address] [place] [address] Referral ID Status Reason Start Date Expiration Date Visits Requested Visits Authorized [id number] Pending Review Perform Procedure 08/01/2022 01/28/2023 1 1 * Consultation (Routine) - Pending Review Specialty Diagnoses / Procedures Referred By Contac t Referred To Contact Addiction Medicine / Addiction Support Services Diagnoses Uncomplicated alcohol dependence (HCC) Procedures [place] OFFICE/OUTPATIENT NEW [facility]IGH MDM 60-74 MINUTES Lynda Rasheed MD [address] [place] [address] [facility] Addiction I[address] [place] [address] Referral ID Status Reason Start Date Expiration Date Visits Requested Visits Authorized [id number] Pending Review Specialty Services Required 08/01/2022 08/01/2023 1 1 Pedro Tirado for referral (narrative)* Consultation (Routine) - Pending Review Specialty Diagnoses / Procedures Referred By Contac t Referred To Contact General Surgery Diagnoses Screening for colon cancer Procedures [place] OFFICE/OUTPATIENT [facility] 60-74 MINUTES Lynda Rasheed MD [address] [place] [address] Sotero Madsen MD [address] [place] [address] [address] [place] [address] Referral ID Status Reason Start Date Expiration Date Visits Requested Visits Authorized [id number] Pending Review Specialty Services Required 09/25/2022 09/25/2023 1 1 * Medications - Closed Specialty Diagnoses / Procedures Referred By Contac t Referred To Contact Lynda Rasheed MD [address] [place] [address] Referral ID Status Reason Start Date Expiration Date Visits Re quested Visits Authorized [id number] Closed 1 1 Pedro Tirado for referral (narrative)* Consultation (Routine) - Pending Review Specialty Diagnoses / Procedures Referred By Contac t Referred To Contact Addiction Medicine / Addiction Support Services Diagnoses Alcohol use disorder, severe (HCC) Procedures [place] OFFICE/OUTPATIENT NEW [facility] 60-74 MINUTES Papito Hood MD [address] [place] [address] [facility] Addiction Iop [address] [place] [address] Referral ID Status Reason Start Date Expiration Date Visits Requested Visits Authorized [id number] Pending Review Specialty Services Required 10/09/2022 10/09/2023 1 1 * Medications - Pending Review Specialty Diagnoses / Procedures Referred By Contac t Referred To Contact Papito Hood MD [address] [place] [address] Referral ID Status Reason Start Date Expiration Date V isits Requested Visits Authorized [id number] Pending Review 1 1 Pedro Tirado for referral (narrative)* Consultation (Routine) - Pending Review Specialty Diagnoses / Procedures Referred By Contac t Referred To Contact General Surgery Diagnoses Screening for colon cancer Procedures [place] OFFICE/OUTPATIENT [facility] MDM 60-74 MINUTES Lynda Rasheed MD [address] [place] [address] Sotero Madsen MD [address] [place] [address] Referral ID Status Reason Start Date Expiration Date Visits Requested Visits Authorized [id number] Pending Review Specialty Services Required 12/26/2022 12/26/2023 1 1 Pedro Tirado for referral (narrative)* Consultation (Routine) - Pending Review Specialty Diagnoses / Procedures Referred By Contac t Referred To Contact General Surgery Diagnoses Screening for colon cancer Procedures [place] OFFICE/OUTPATIENT [facility] MDM 60-74 MINUTES Lynda Rasheed MD [address] [place] [address] Sotero Madsen MD [address] [place] [address] Referral ID Status Reason Start Date Expiration Date Visits Requested Visits Authorized [id number] Pending Review Specialty Services Required 06/12/2022 06/12/2023 1 1 * Consultation (Routine) - Pending Review Specialty Diagnoses / Procedures Referred By Contac t Referred To Contact Dermatology Diagnoses Psoriasis Procedures [place] OFFICE/OUTPATIENT NEW HIGH MDM 60-74 MINUTES Lynda Rasheed MD [address] [place] [address] [facility] Derm [address] [facility] [address] [place] [address] Referral ID Status Reason Start Date Expiration Date Visits Requested Visits Authorized [id number] Pending Review Specialty Services Required 06/12/2022 06/12/2023 1 1 [facility] (narrative)No reason for referral information availableW[facility] Work Phone: Reason for visit Narrative* Imaging (Routine) - Authorized Specialty Diagnoses / Procedures Referred By Contac t Referred To Contact Radiology Diagnoses Current smoker Procedures CT lung screening low dose Lynda Rasheed MD [address] [place] [address] [address] [place] [address] Phone: tel: fax: Referral ID Status Reason Start Date Expiration Date V isits Requested Visits Authorized [id number] Authorized 02/05/2024 02/04/2025 1 11 [employer] for visit Narrative* Imaging (Routine) - Closed Specialty Diagnoses / Procedures Referred By Contac t Referred To Contact Radiology Diagnoses Pulmonary nodule Procedures CT chest wo IV contrast Myra Darden MD [address] [facility] [address] [place] [address] Phone: tel: fax: Referral ID Status Reason Start Date Expiration Date Visits Re quested Visits Authorized [id number] Closed 02/28/2024 02/27/2025 1 1 [employer] Summary Purpose Family History Medical History Relation [...] Documents on File Type Date Recorded Patient End Frazer Expl anation Advance Directives and Living Will Power of Cupboard Builder Documents on File Type Date Recorded Patient End Frazer Expl anation Advance Directives and Living Will Power of Cupboard Builder Latest Code Status on File Code Status Date Activated Date Inactivated Comments Full Code 08/31/2019 9:29 PM Latest Code Status on File Code Status Date Activated Date Inactivated Comments Full Code 10/02/2019 1:24 AM 10/05/2019 6:43 PM Full Code 08/31/2019 9:29 PM 09/02/2019 4:37 PM Documents on File Type Date Recorded Patient End Frazer Expl anation ACP-Advance Directive ACP-Power of Cupboard Builder Latest Code Status on File Code Status [...] Do you have a Healthcare Power of Cupboard Builder? No September 17, 2024 7:16pm Advance Directives No March 07, 2017 6:05pm Advance Directive Response Recorded Date/ Time Do you have a Healthcare Power of Cupboard Builder? No September 17, 2024 9:02pm Advance Directives [...] sent through Care Everywhere. * Back: Strain (Irish) * Low Back Pain: Exercises (Irish) documented in this encounter* Attachments The following attachments cannot be sent through Care Everywhere. * Back Pain (Irish) * Sciatica (Irish) * Low Back Pain: Exercises (Irish) documented in this encounter* Attachments The following attachments cannot be sent through Care Everywhere. * Sore Throat (Irish) * Smoking: Stopping (Irish) documented in this encounter* Instructions* Eryn Perrin [...] sent through Care Everywhere. * naltrexone (injection) (Irish) * Alcohol Use Disorder: General Info (Irish) * Lombardo's Esophagus (Irish) documented in this encounter History of Present Illness * Herbert Clarke RN - 06/10/2020 9:15 AM EST POST ENDOSCOPY PROCEDURE TRANSFER REPORT Procedure completed: EGD Findings: Please see Dr Madison note. Specimens obtained: Biopsies Medications administered: Propofol Additional Info: Please see Dr Madison report For additional Questions please call Endoscopy at [phone]. Thank You! documented in this encounter Reason for Referral Specialty Diagnoses / Procedures Referred By Carmen patton Referred To Contact Lynda Rasheed MD [address] [place] [address] Referral ID Status Reason Start Date Expiration Date V isits Requested Visits Authorized [id number] Pending Review 1 1 Referral ID Status Reason Start Date Expiration Date Visits Re quested Visits Authorized [id number] Closed 1 1 Chief Complaint and Reason [...] section and content) DATE CREATED AUTHOR 01/03/2019 [facility] DATE CREATED AUTHOR AUTHOR'S ORGANIZ ATION 01/03/2019 [facility] DATE CREATED AUTHOR AUTHOR'S ORGANIZ ATION 10/28/2021 [facility] DATE CREATED AUTHOR AUTHOR'S ORGANIZ ATION 10/31/2021 [facility] DATE CREATED AUTHOR AUTHOR'S ORGANIZ ATION 09/29/2024 [facility] DATE CREATED AUTHOR AUTHOR'S ORGANIZ ATION 10/01/2024 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 Also reports BRB in his vomit. Specialty Diagnoses / Procedures Referred By Contac t Referred To Contact Diagnoses Alcohol withdrawal syndrome without complication (HCC) Hematemesis with nausea Procedures f10.930 Redd Teixeira MD [address] [facility] [address] [place] [address] [facility] 2e Telemetry [address] [place] [address] Referral ID Status Reason Start Date Expiration Date Visits Re quested Visits Authorized [id number] 1 1 Reason Onset Date Comments Results 07/11/2022 Reason Comments Follow-up Discuss results and COPD Specialty Diagnoses / Procedures Referred By Contac t Referred To Contact Diagnoses SOB (shortness of breath) Procedures Complete PFT study Lynda Rasheed MD [address] [place] [address] Referral ID Status Reason Start Date Expiration Date V isits Requested Visits Authorized [id number] Incomplete 08/01/2022 01/28/2023 1 1 Reason Comments Alcohol Problem Pt arrives via triag e wanting detox from alcohol. Pt drinks 7-9 tall beers a day. Pt hasn't been able to eat much in the past week. Pt having some nausea/vomiting. Specialty Diagnoses / Procedures Referred By Carmen patton Referred To Contact Diagnoses Alcohol withdrawal syndrome without complication (HCC) Alcohol use disorder Procedures [id number] withdrawal syndrome without complication (HCC) [id number] use disorder Bryan Rodriguez MD [address] [address] [address] Det[address] [place] [address] Referral ID Status Reason Start Date Expiration Date Visits Re quested Visits Authorized [id number] 1 1 Reason Onset Date Comments Med [...] Procedures . Jonatan Mckeon MD [address] [address] [address] Det[address] [place] [address] Referral ID Status Reason Start Date Expiration Date Visits Re quested Visits Authorized [id number] 1 1 Reason Comments Dental Pain Reason [...] per day. 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 Specialty Diagnoses / Procedures Referred By Carmen patton Referred To Contact Diagnoses Alcohol withdrawal syndrome, uncomplicated (HCC) Procedures f10.930 Shelly Cruz MD [address] [place] [address] [facility] Emergency Dept [address] [place] [address] Referral ID Status Reason Start Date Expiration Date Visits Re quested Visits Authorized [id number] 1 1 Reason Onset Date Comments Med [...] Procedures . Jonatan Mckeon MD [address] [address] [address] Det[address] [place] [address] Referral ID Status Reason Start Date Expiration Date Visits Re quested Visits Authorized [id number] 1 1 Reason Onset Date Comments Med Refill 07/19/2023 Reason Comments Alcohol Intoxication Specialty Diagnoses / Procedures Referred By Carmen t Referred To Contact Diagnoses Alcohol withdrawal syndrome without complication (HCC) Procedures .. Bryan Rodriguez MD [address] [address] [address] [place] [address] Referral ID Status Reason Start Date Expiration Date Visits Re quested Visits Authorized [id number] 1 1 Reason Comments Med Refill Reason Comments Alcohol Problem Pt c/o ETOH abuse. S tates last drink was a couple hours. Pt states 8 tall boys a day typically. Pt states he's having difficulty thinking straight. Specialty Diagnoses / Procedures Referred By Carmen patton Referred To Contact Diagnoses 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) Procedures . Shelly Cruz MD [address] [place] [address] [facility] Emergency Dept [address] [place] [phone] Referral ID Status Reason Start Date Expiration Date Visits Re quested Visits Authorized [id number] 1 1 Reason Onset Date Comments Med Refill 12/03/2023 Reason Comments Alcohol Problem Specialty Diagnoses / Procedures Referred By Carmen t Referred To Contact Diagnoses Alcohol abuse Procedures - Luis Branch MD [address] [facility] [address] [place] [address] Phone: tel: fax: [facility] Detox [address] [place] [address] Phone: tel: Referral ID Status Reason Start Date Expiration Date Visits Re quested Visits Authorized [id number] 1 1 Reason Comments Drug / Alcohol Assessment Reason Comments Follow-up Med Check Flu Vaccine Patient has already received the flu vaccine, pt does not remember date received Reason Onset Date Comments Med Refill 02/06/2024 Reason Onset Date Comments Error (VOID this visit) 02/13/2024 Reason Onset Date Comments Care Coordination 02/13/2024 Lung Rads 4A L a[place] Screening CT- Expedited lung nodule clinic eval recommended Reason Comments Care Coordination Lung Nodule Review C onference Recommendations 02/18/24 Reason Comments New Patient Lung Nodule Specialty Diagnoses / Procedures Referred By Carmen patton Referred To Contact Pulmonology Diagnoses Pulmonary nodule Procedures [place] OFFICE/OUTPATIENT NEW HIGH MDM 60 MINUTES Lynda Rasheed MD [address] [facility] [address] [place] [address] Phone: tel: fax: [facility] - [address] [address] Phone: tel: fax: Referral ID Status Reason Start Date Expiration Date Visits Requested Visits Authorized [id number] Pending Review Specialty Services Required 4 02/12/2025 1 1 Reason Comments Annual Exam Shoulder Pain Reason Comments Alcohol Problem Patient seeking deto x from ETOH. 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 Specialty Diagnoses / Procedures Referred By Carmen t Referred To Contact Diagnoses Alcoholic intoxication without complication (CMS/HCC) (HCC) Procedures . John Matthews MD [address] [place] [address] Phone: tel: fax: [facility] [address] [place] [address] Phone: tel: Referral ID Status Reason Start Date Expiration Date Visits Re quested Visits Authorized [id number] 1 1 Reason Comments Alcohol Problem Patient presents for detox from alcohol. 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 Patient drinks 6-9 tall boys a day. Specialty Diagnoses / Procedures Referred By Carmen patton Referred To Contact Diagnoses Alcohol withdrawal syndrome with complication, with unspecified complication (HCC) Alcohol use disorder Procedures . Jonatan Mckeon MD [address] [address] Phone: tel: fax: [facility] Detox [address] [place] [address] Phone: tel: Referral ID Status Reason Start Date Expiration Date Visits Re quested Visits Authorized [id number] 1 1 Reason Comments Hospital Follow-up 05/07/24 [facility] for detox Reason Comments Fall Head Injury [...] Procedures . Jonatan Mckeon MD [address] [address] Phone: tel: fax: [facility] Detox [address] [place] [address] Phone: tel: Referral ID Status Reason Start Date Expiration Date Visits Re quested Visits Authorized [id number] 1 1 Reason Onset Date Comments Test Scheduling 06/03/2024 Reason Onset Date Comments Med Refill 06/22/2024 Reason Comments Toe Injury Dropped dresser on 4 th toe of left foot yest morning. Reason Comments Rash On abdomen Back Pain Middle of back. No k nown injury. 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 Requ esting detox Specialty Diagnoses / Procedures Referred By Contac t Referred To Contact Diagnoses Alcohol dependence with inpatient treatment (HCC) Herpes zoster without complication Alcohol withdrawal syndrome without complication (HCC) Procedures . Bryan Rodriguez MD [address] [facility] [address] [place] [address] Phone: tel: fax: [facility] [address] [place] [address] Phone: tel: Referral ID Status Reason Start Date Expiration Date Visits Re quested Visits Authorized [id number] 1 1 Reason Comments Rash Reason Comments [...] Active Member Role Status Dates Out of [facility] Doctor Primary Care Provider Active Team Status: Inactive Member Role Status Dates Out of [facility] Doctor Primary Care Provider Active Start: September [...] Active Member Role Status Dates Out of [facility] Doctor Primary Care Provider Active Start: September [...] Active Member Role Status Dates Out of [facility] Doctor Primary Care Provider Active Start: September [...] Active Member Role Status Dates Out of [facility] Doctor Primary Care Provider Active Start: September [...] Provider Active Star t: September 20, 2024 Vp Treasurer Relationship Specialty Start Date End Date Lynda Rasheed MD [address] [place] [id number] PCP - General Family Medicine 02/25/17 Vp Treasurer Relationship Specialty Start Date End Date Lynda Rasheed MD [address] [place] [address] [id number] PCP - General Family Medicine 02/25/17 Vp Treasurer Relationship Specialty Start Date End Date Lynda Rasheed MD [address] [place] [address] 84335 PCP - General Family Medicine 02/25/17 Vp Treasurer Relationship Specialty Start Date End Date Lynda Rasheed MD [address] [place] [address] 46958 PCP - General 02/25/17 Vp Treasurer Relationship Specialty Start Date End Date Lynda Rasheed MD [address] [place] [address] 28821 PCP - General 02/25/17 Vp Treasurer Relationship Specialty Start Date End Date Lynda Rasheed MD [address] [place] [address] 34036 PCP - General 02/25/17 Vp Treasurer Relationship Specialty Start Date End Date Lynda Rasheed MD [address] [place] [address] [place] [address] PCP - General 02/25/17 Vp Treasurer Relationship Specialty Start Date End Date Lynda Rasheed MD [address] [place] [address] [place] [address] PCP - General 02/25/17 Vp Treasurer Relationship Specialty Start Date End Date Lynda Rasheed MD [address] [place] [address] 57397 PCP - General 02/25/17 Vp Treasurer Relationship Specialty Start Date End Date Lynda Rasheed MD [address] [place] [address] [id number] PCP - General 02/25/17 Vp Treasurer Relationship Specialty Start Date End Date Lynda Rasheed MD [address] [place] [address] 94641 PCP - General 02/25/17 Vp Treasurer Relationship Specialty Start Date End Date Lynda Rasheed MD [address] [place] [address]3578 PCP - General 02/25/17 Vp Treasurer Relationship Specialty Start Date End Date Lynda Rasheed MD [address] [place] [address] [id number] PCP - General 02/25/17 Vp Treasurer Relationship Specialty Start Date End Date Lynda Rasheed MD [address] [place] [address] 6[address]15 PCP - General 02/25/17 Vp Treasurer Relationship Specialty Start Date End Date Lynda Rasheed MD [address] [place] [address] [place] [address] PCP - General 02/25/17 Vp Treasurer Relationship Specialty Start Date End Date Lynda Rasheed MD [address] [place] [address] 10472 PCP - General 02/25/17 Vp Treasurer Relationship Specialty Start Date End Date Lynda Rasheed MD [address] [place] [address] 72594 PCP - General 02/25/17 Vp Treasurer Relationship Specialty Start Date End Date Lynda Rasheed MD [address] [place] [address] 73527 PCP - General 02/25/17 Vp Treasurer Relationship Specialty Start Date End Date Lynda Rasheed MD [address] [place] [address] 04405 PCP - General 02/25/17 Vp Treasurer Relationship Specialty Start Date End Date Lynda Rasheed MD [address] [place] [address] 32457 PCP - General 02/25/17 Vp Treasurer Relationship Specialty Start Date End Date Lynda Rasheed MD [address] [place] [address] 46505 PCP - General 02/25/17 Vp Treasurer Relationship Specialty Start Date End Date Lynda Rasheed MD [address] [place] [address] 85756 PCP - General 02/25/17 Vp Treasurer Relationship Specialty Start Date End Date Lynda Rasheed MD [address] [place] [address] 62699 PCP - General 02/25/17 Vp Treasurer Relationship Specialty Start Date End Date Lynda Rasheed MD [address] [place] [address]15 PCP - General 02/25/17 Vp Treasurer Relationship Specialty Start Date End Date Lynda Rasheed MD [address] [place] [address] PCP - General 02/25/17 Vp Treasurer Relationship Specialty Start Date End Date Lynda Rasheed MD [address] [place] [address] PCP - General 02/25/17 Vp Treasurer Relationship Specialty Start Date End Date Lynda Rasheed MD [address] [place] [address] PCP - General 02/25/17 Vp Treasurer Relationship Specialty Start Date End Date Lynda Rasheed MD [address] [place] [address] PCP - General 02/25/17 Vp Treasurer Relationship Specialty Start Date End Date Lynda Rasheed MD [address] [place] [address] PCP - General 02/25/17 Vp Treasurer Relationship Specialty Start Date End Date Lynda Rsaheed MD [address] [place] [address] PCP - General 02/25/17 Vp Treasurer Relationship Specialty Start Date End Date Lynda Rasheed MD [address] [place] [address] PCP - General 02/25/17 Vp Treasurer Relationship Specialty Start Date End Date Lynda Rasheed MD [address] [place] [address] PCP - General 02/25/17 Vp Treasurer Relationship Specialty Start Date End Date Lynda Rasheed MD [address] [place] [address] PCP - General 02/25/17 Vp Treasurer Relationship Specialty Start Date End Date Lynda Rasheed MD [address] [place] [address] PCP - General 02/25/17 Vp Treasurer Relationship Specialty Start Date End Date Lynda Rasheed MD [address] [place] [address] PCP - General 02/25/17 Vp Treasurer Relationship Specialty Start Date End Date Lynda Rasheed MD [address] [place] [address] PCP - General 02/25/17 Vp Treasurer Relationship Specialty Start Date End Date Lynda Rasheed MD [address] [place] [address] PCP - General 02/25/17 Vp Treasurer Relationship Specialty Start Date End Date Lynda Rasheed MD [address] [place] [address] PCP - General 02/25/17 Vp Treasurer Relationship Specialty Start Date End Date Lynda Rasheed MD [address] [place] [address] PCP - General 02/25/17 Vp Treasurer Relationship Specialty Start Date End Date Lynda Rasheed MD [address] [place] [address] PCP - General 02/25/17 Vp Treasurer Relationship Specialty Start Date End Date Lynda Rasheed MD [address] [place] [address] PCP - General 02/25/17 Vp Treasurer Relationship Specialty Start Date End Date Lynda Rasheed MD [address] [place] [address] PCP - General 02/25/17 Vp Treasurer Relationship Specialty Start Date End Date Lynda Rasheed MD [address] [place] [address] PCP - General 02/25/17 Vp Treasurer Relationship Specialty Start Date End Date Lynda Rasheed MD [address] [place] [address] PCP - General 02/25/17 Vp Treasurer Relationship Specialty Start Date End Date Lynda Rasheed MD [address] [place] [address] PCP - General 02/25/17 Vp Treasurer Relationship Specialty Start Date End Date Lynda Rasheed MD [address] [place] [address] PCP - General 02/25/17 Vp Treasurer Relationship Specialty Start Date End Date Lynda Rasheed MD [address] [place] [address] PCP - General 02/25/17 Vp Treasurer Relationship Specialty Start Date End Date Lynda Rasheed MD [address] [place] [address] PCP - General 02/25/17 Vp Treasurer Relationship Specialty Start Date End Date Lynda Rasheed MD [address] [place] [address] PCP - General 02/25/17 Radha Wylie, METER READER INSPECTOR Respiratory Therapist Respiratory Therapy 03/02/24 Vp Treasurer Relationship Specialty Start Date End Date Lynda Rasheed MD [address] [place] [address] PCP - General 02/25/17 Radha Wylie, METER READER INSPECTOR Respiratory Therapist Respiratory Therapy 03/02/24 Vp Treasurer Relationship Specialty Start Date End Date Lydna Rasheed MD [address] [place] [address] PCP - General 02/25/17 Radha Wylie, METER READER INSPECTOR Respiratory Therapist Respiratory Therapy 03/02/24 Vp Treasurer Relationship Specialty Start Date End Date Lynda Rasheed MD [address] [place] [address] PCP - General 02/25/17 Radha Wylie, METER READER INSPECTOR Respiratory Therapist Respiratory Therapy 03/02/24 Vp Treasurer Relationship Specialty Start Date End Date Lynda Rasheed MD [address] [place] [address] PCP - General 02/25/17 Radha Wylie, METER READER INSPECTOR Respiratory Therapist Respiratory Therapy 03/02/24 Vp Treasurer Relationship Specialty Start Date End Date Lynda Rasheed MD [address] [place] [address] PCP - General 02/25/17 Radha Wylie, METER READER INSPECTOR Respiratory Therapist Respiratory Therapy 03/02/24 Vp Treasurer Relationship Specialty Start Date End Date Lynda Rasheed MD [address] [place] [address] PCP - General 02/25/17 Radha Wylie, METER READER INSPECTOR Respiratory Therapist Respiratory Therapy 03/02/24 Vp Treasurer Relationship Specialty Start Date End Date Lynda Rasheed MD [address] [place] [address] PCP - General 02/25/17 Radha Wylie, METER READER INSPECTOR Respiratory Therapist Respiratory Therapy 03/02/24 Vp Treasurer Relationship Specialty Start Date End Date Lynda Rasheed MD [address] [place] [address] PCP - General 02/25/17 Radha Wylie, METER READER INSPECTOR Respiratory Therapist Respiratory Therapy 03/02/24 Vp Treasurer Relationship Specialty Start Date End Date Lynda Rasheed MD [address] [place] [address] PCP - General 02/25/17 Radha Wylie, METER READER INSPECTOR Respiratory Therapist Respiratory Therapy 03/02/24 Vp Treasurer Relationship Specialty Start Date End Date Lynda Rasheed MD [address] [place] [address] PCP - General 02/25/17 Radha Wylie, METER READER INSPECTOR Respiratory Therapist Respiratory Therapy 03/02/24 Vp Treasurer Relationship Specialty Start Date End Date Lynda Rasheed MD [address] [place] [address] PCP - General 02/25/17 Radha Wylie, METER READER INSPECTOR Respiratory Therapist Respiratory Therapy 03/02/24 Vp Treasurer Relationship Specialty Start Date End Date Lynda Rasheed MD [address] [place] [address] PCP - General 02/25/17 Radha Wylie, METER READER INSPECTOR Respiratory Therapist Respiratory Therapy 03/02/24 Vp Treasurer Relationship Specialty Start Date End Date Lynda Rasheed MD [address] [place] [address] PCP - General 02/25/17 Radha Wylie, METER READER INSPECTOR Respiratory Therapist Respiratory Therapy 03/02/24 Vp Treasurer Relationship Specialty Start Date End Date Lynda Rasheed MD [address] [place] [address] PCP - General 02/25/17 Radha Wylie, METER READER INSPECTOR Respiratory Therapist Respiratory Therapy 03/02/24 Vp Treasurer Relationship Specialty Start Date End Date Lynda Rasheed MD [address] [place] [address] PCP - General 02/25/17 Radha Wylie, METER READER INSPECTOR Respiratory Therapist Respiratory Therapy 03/02/24 Vp Treasurer Relationship Specialty Start Date End Date Lynda Rasheed MD [address] [place] [address] PCP - General 02/25/17 Radha Wylie, METER READER INSPECTOR Respiratory Therapist Respiratory Therapy 03/02/24 Vp Treasurer Relationship Specialty Start Date End Date Lynda Rasheed MD [address] [place] [address] PCP - General 02/25/17 Radha Wylie, METER READER INSPECTOR Respiratory Therapist Respiratory Therapy 03/02/24 Vp Treasurer Relationship Specialty Start Date End Date Lynda Rasheed MD [address] [place] [address] PCP - General 02/25/17 Radha Wylie, METER READER INSPECTOR Respiratory Therapist Respiratory Therapy 03/02/24 Vp Treasurer Relationship Specialty Start Date End Date Lynda Rasheed MD [address] [place] [address] PCP - General 02/25/17 Radha Wylie, METER READER INSPECTOR Respiratory Therapist Respiratory Therapy 03/02/24 Vp Treasurer Relationship Specialty Start Date End Date Lynda Rasheed MD [address] [place] [address] PCP - General 02/25/17 Radha Wylie, METER READER INSPECTOR Respiratory Therapist Respiratory Therapy 03/02/24 Team Status: Active Member Role Status Dates Out of [facility] Doctor Primary Care Provider Active Start: September 17, 2024 Dr. Doe Oh DO Referring Provider Active Start : September 17, 2024 Dr. Doe Oh DO Emergency Provider Active Start : September 17, 2024 Dr. Joon Vinson , DO Admit Provider Active Start: September 17, 2024 Dr. Joon Vinson DO Attending Provider Active Start: September 17, 2024 Vp Treasurer Relationship Specialty Start Date End Date Lynda Rasheed MD [address] [facility] [address] [place] [address] PCP - General 02/25/17 Radha Wylie, METER READER INSPECTOR Respiratory Therapist Respiratory Therapy 03/02/24 Scheduled Active [...] Morris RN)1200 (Due - Provider: Hui Barker [facility])1600 (Due - Provider: Hui Barker [facility])2000 (Due - Provider: Hui Barker [facility]) sodium chloride flush 0.9 % injection [...] (New Bag - Provider: Rena De La Feunte, RN) 1119 (Stopped - Provider: Larry Morris, [...] Starting on Mounika 09/28/21 at 0051, Until Muonika 09/28/21 at 0120, High Blood Pressure, SBP>160 [...] (See Alternative - Provider: Rena De La Funete RN)2343 (See Alternative - Provider: Kasie Gay [...] RN)2246 (Given - Provider: Tram Tello RN) 032 (See [...] Tello RN)2246 (See Alternative - Provider: Tram Telol RN) 0321 (See Alternative - Provider: Tram [...] Provider: Corinne Navarrete RN)1059 (Given - Provider: aLuren Irby, RN) PHENobarbital (Luminal) tablet 97.2 mg [...] Julianna Hampton RN) 0827 (Given - Provider: Jluianna Hampton RN) gabapentin (Neurontin) tablet 600 mg [...] Julianna Hampton RN)1555 (See Alternative - Provider: uJlianna Hampton RN)1902 (See Alternative - Provider: Julianna [...] Provider: Stephanie Schmitt, TISH)1152 (Given - Provider: Stephanie Schmitt, RN)1642 (Given - Provider: Stephanie Schmitt, [...] Yasemin Abdul RN) 0809 (Given - Provider: Laruen Irby RN)1330 (Given - Provider: Lauren Irby [...] Evelyn Abad, RN) 2321 (Given - Provider: Yasemin Abdul RN - Comment: no sleepy) naltrexone [...] with Trazodone. 2103 (Given - Provider: Esteban Ocampo RN) 2019 [...] 0841 (Given - Provider: Ceci Sandy, RN) PHENobarbital tablet 64.8 mg (CANCELED) 64.8 [...] at 2141 0141 (Given - Provider: Evelyn Aabd RN) loperamide (Imodium) capsule 2 mg 2 mg, Oral, 4 times daily PRN, diarrhea, Starting on Sat05/07/24 at 2141, After each loose stool LORazepam (Ativan) injection 2 mg 2 mg, IntraMUSCular, Once PRN, seizures, Starting on Sat05/07/24 at 2141, For 1 dose, Please notify concrete boom operator attending if this has to be utilized [...] at 192, For 1 dose, Please notify concrete boom operator attending if this has to be utilized [...] sedation for opioid reversal - MUST notify concrete boom operator provider immediately after first dose, may give [...] BE BASED ON THE PRIMARY CLINICAL RECORDS. [facility]. provides no warranty or guarantee of the accuracy or completeness of information in this document.
[2024-10-18] MEDS: Lactated Ringers 1,000 ML 125 ML IV (13:24)
--- NOTE | 2024-10-18 14:48 | ADDICTION ---
Attempted to meet with pt to complete RAMP assessments but pt was not awake. Several attempts were made to wake pt but pt was not agreeable to meeting. Pt's status was communicated to RAMP coordinator Akosua Grijalva, and Akosua will meet with pt to complete his RAMP assessment tomorrow.
[2024-10-18] MEDS: MELATONIN 10 MG TABLET 5 MG PO (21:04)
[2024-10-19] VITALS (8 sets, daily range): BP systolic 133–187; BP diastolic 84–130; PULSE 93–111; RESP 14–18; TEMP 36.4–36.9; O2SAT 94–95
[2024-10-19] MEDS: hydrOXYzine PAM 25 MG Capsule 50 MG PO (01:06)
[2024-10-19] MEDS: Thiamine Hydrochloride 100 MG Tablet PO (07:34)
--- NOTE | 2024-10-19 10:27 | ADDICTION ---
Met w/pt to complete RAMP assessments. Pt reports that he drinks liquor most of the day. He reports that he has been in detox previously with relapse shortly after discharge. Pt denied willingness to enter residential tx but she was open to outpatient services. Pt agreed to f/u with [facility] in [place] for FAY/MH tx. Pt was also agreeable to f/u w/[facility] to establish w/PCP and Psychiatry as part of her discharge plan. Pt was provided a packet of information and resources.
--- NOTE | 2024-10-19 13:12 | PN_ITS ---
Subjective Subjective Patient seen and examined. He had no active complaints. He denies any shakes or tremors, nausea vomiting or any other symptoms. His is in the hospital with the same complaint. I saw the patient with his nurse by his bedside. Review of symptoms otherwise negative. He has remained hemodynamically stable. Objective Data Objective Data Vital Signs: Vital Signs Temp Pulse Resp BP Pulse Ox O2 Del Method O2 Flow Rate 98.1 F 101 H 14 145/97 H 94 Room Air 2 10/19/24 07:30 10/19/24 07:30 10/19/24 07:30 10/19/24 07:30 10/19/24 07:30 10/19/24 07:30 10/19/24 04:58 Oxygen Flow Rate (L/min) 2 Oxygen Delivery Method Room Air Weight: 216 lb 0.848 oz Body Mass Index (BMI) 30.1 Intake & Output: Intake and Output for Last 24 Hours 10/17/24 10/18/24 10/19/24 23:59 23:59 23:59 Intake Total 1580 / 1820 300 / 300 Balance 1580 / 1820 300 / 300 Lab / Micro Data 10/18/24 10:10 10/18/24 10:10 Physical Exam Const alert, oriented x3 and no apparent distress General Appearance: cooperative HEENT normocephalic, head/scalp atraumatic, moist oral mucous membranes and oropharynx normal Eyes PERRL and EOMs intact bilaterally Neck no lymphadenopathy, supple and no JVD Lymph Lymphatic: no lymphadenopathy noted and no lymphedema noted Resp normal respiratory effort, normal air movement and clear to auscultation bilaterally Cardio regular rate, regular rhythm, S1 normal heart sound, S2 normal heart sound and no murmurs GI normal to inspection, nondistended, normoactive bowel sounds, soft to palpation, non-tender and non-distended Extremity normal capillary refill, no clubbing, cyanosis or edema and no calf tenderness General Extremity: no tenderness to palpation of joints or extremities Skin General Skin Exam: no breakdown Neuro CN's II-XII intact bilaterally, no focal motor deficits, no sensory deficits noted and deep tendon reflexes 2+ bilaterally Motor Exam: strength 5/5 throughout and general weakness Psych thought process normal and cooperative Assessment & Plan Assessment/Plan (1) Acute alcohol intoxication: (2) Alcohol abuse: PLAN: Plan #Acute alcohol withdrawal * On alcohol withdrawal protocol with phenobarbital taper * On thiamine, folic acid and Multivite. Adjunctive meds for symptomatic relief. * monitor CIWA score * #GERD: On PPI #COPD: not in exacerbation. Breathing treatment with bronchodilators #Nicotine dependence: counseled to quit. Nicotine patch 21mg daily #ADRIANE: stable #Elevated transaminases: due to alcohol use disorder DVT prophylaxis: low risk. Encourage ambulation Charges/Coding Visit Charges Inpatient E&M: 29275 Subs Hosp L2
[2024-10-19] MEDS: MELATONIN 10 MG TABLET 5 MG PO (22:01)
[2024-10-20] VITALS (8 sets, daily range): BP systolic 121–145; BP diastolic 84–100; PULSE 88–107; RESP 16–18; TEMP 36.4–37.3; O2SAT 91–95
[2024-10-20] MEDS: Thiamine Hydrochloride 100 MG Tablet PO (10:15)
--- NOTE | 2024-10-20 12:18 | PCM.PROGNOTE ---
Subjective Subjective Patient seen and examined. He had no active complaints and had an uneventful night. Review of systems is otherwise negative. He asked if he could leave today, but was informed that it is only day 2 of the detox. He is agreeable to stay another day. Objective Data Objective Data Vital Signs: Vital Signs Temp Pulse Resp BP Pulse Ox O2 Del Method O2 Flow Rate 98.9 F 101 H 18 138/90 H 93 Room Air 2 10/20/24 10:00 10/20/24 10:00 10/20/24 10:10/20/24 10:00 10/20/24 10:10/20/24 10:10/19/24 04:58 Oxygen Flow Rate (L/min) 2 Oxygen Delivery Method Room Air Weight: 216 lb 0.848 oz Body Mass Index (BMI) 30.1 Intake & Output: Intake and Output for Last 24 Hours 10/18/24 10/19/24 10/20/24 23:59 23:59 23:59 Intake Total 1580 / 1820 780 / 1180 850 / 850 Balance 1580 / 1820 780 / 1180 850 / 850 Lab / Micro Data 10/18/24 10:10 10/18/24 10:10 Physical Exam Const alert, oriented x3 and no apparent distress General Appearance: cooperative HEENT normocephalic, head/scalp atraumatic, moist oral mucous membranes and oropharynx normal Eyes PERRL and EOMs intact bilaterally Neck no lymphadenopathy, supple and no JVD Lymph Lymphatic: no lymphadenopathy noted and no lymphedema noted Resp normal respiratory effort, normal air movement and clear to auscultation bilaterally Cardio regular rate, regular rhythm, S1 normal heart sound, S2 normal heart sound and no murmurs GI normal to inspection, nondistended, normoactive bowel sounds, soft to palpation, non-tender and non-distended Extremity normal capillary refill, no clubbing, cyanosis or edema and no calf tenderness General Extremity: no tenderness to palpation of joints or extremities Skin General Skin Exam: no breakdown Neuro CN's II-XII intact bilaterally, no focal motor deficits, no sensory deficits noted and deep tendon reflexes 2+ bilaterally Motor Exam: strength 5/5 throughout and general weakness Psych thought process normal and cooperative Appearance: appropriate Assessment & Plan Assessment/Plan (1) Acute alcohol intoxication: (2) Alcohol abuse: PLAN: Plan #Acute alcohol withdrawal On alcohol withdrawal protocol with phenobarbital taper On thiamine, folic acid and Multivite. Adjunctive meds for symptomatic relief. monitor CIWA score #GERD: On PPI #COPD: not in exacerbation. Breathing treatment with bronchodilators #Nicotine dependence: counseled to quit. Nicotine patch 21mg daily #ADRIANE: stable #Elevated transaminases: due to alcohol use disorder DVT prophylaxis: low risk. Encourage ambulation Disposition: for dc tomorrow Charges/Coding Visit Charges Inpatient E&M: 14684 Subs Hosp L2
[2024-10-20] MEDS: MELATONIN 10 MG TABLET 5 MG PO (21:13)
[2024-10-20] MEDS: hydrOXYzine PAM 25 MG Capsule 50 MG PO (21:16)
[2024-10-21 05:49] VITALS: BP 142/88; PULSE 98; RESP 16; TEMP 36.4; O2SAT 94
[2024-10-21 07:57] VITALS: O2SAT 94
[2024-10-21 08:50] VITALS: BP 108/83; PULSE 96; RESP 18; TEMP 36.4; O2SAT 93
[2024-10-21] MEDS: hydrOXYzine PAM 25 MG Capsule 50 MG PO (09:00)
[2024-10-21] MEDS: Thiamine Hydrochloride 100 MG Tablet PO (09:00)
--- NOTE | 2024-10-21 10:41 | DCINST_ITS ---
Discharge Instructions DC O2, CPAP, BIPAP needs Home O2 Discharge instructions: No Dressing / Incision Weight Bearing Status: Weight bearing as tolerated Dressing / Incision Call your doctor if you observe: Fever of 101 or Higher, Shortness of breath, Dizziness, Swelling in the ankles, Chest pain and Increased palpitations (irregular heartbeat) Follow Up Care Test Results: Test results from this visit will be discussed in further detail at your follow- up appointment, if applicable. Discharge Plan Admission Admit Date/Time: 10/18/24 11:23 Primary Reason for Your Visit: acute alcohol withdrawal Attending Provider: Sherin Cartagena Primary Care Provider: Hannah Bustos Consulting Providers: Joon Bellamy Instructions Patient Instructions: Alcohol Withdrawal: What to Expect Discharge Orders/Prescriptions Prescriptions: Continued gabapentin 300 mg capsule 600 mg PO TID melatonin 5 mg tablet 5 mg PO QHS omeprazole 20 mg tablet,delayed release (DR/EC) 20 mg PO DAILY calcipotriene 0.005 % cream 1 applic topical BID PRN (Reason: psoriasis) cyclobenzaprine 10 mg tablet 10 mg PO QHS PRN PRN (Reason: muscle spasm) Referrals / Follow Up: Hannah Bustos MD [Primary Care Provider] - Within 1 Week Care Physician,No Primary [Non-Staff] - Disposition Disposition (needs filled in before D/C Order can be placed): Home, Self Care
--- NOTE | 2024-10-21 10:45 | DS.PCM_ITS ---
Providers Date of Admission: 10/18/24 Date of Discharge: 10/21/24 Primary Care Physician: Dr. Hannah Bustos MD Reason For Visit: ALCOHOL WITHDRAWAL Diagnosis Discharge Diagnosis (1) Acute alcohol intoxication: Status: Acute Code(s): F10.929 - Alcohol use, unspecified with intoxication, unspecified (2) Alcohol abuse: Status: Acute Code(s): F10.10 - Alcohol abuse, uncomplicated Plan #Acute alcohol withdrawal * On alcohol withdrawal protocol with phenobarbital taper * On thiamine, folic acid and Multivite. Adjunctive meds for symptomatic relief. * monitor CIWA score * #GERD: On PPI #COPD: not in exacerbation. Breathing treatment with bronchodilators #Nicotine dependence: counseled to quit. Nicotine patch 21mg daily #ADRIANE: stable #Elevated transaminases: due to alcohol use disorder DVT prophylaxis: low risk. Encourage ambulation Disposition: for dc tomorrow Medications at Discharge Home Medications gabapentin 300 mg capsule 600 mg PO TID neuropathy 09/17/24 melatonin 5 mg tablet 5 mg PO QHS sleep 09/17/24 omeprazole 20 mg tablet,delayed release 20 mg PO DAILY stomach 09/17/24 calcipotriene 0.005 % topical cream 1 applic topical BID PRN psoriasis 10/18/24 cyclobenzaprine 10 mg tablet 10 mg PO QHS PRN PRN muscle spasm 10/18/24 Hospital Course Operations None Procedures None Summary of Care Provided Minutes Spent on Discharge: 42 Hospital Course: Patient is a 58 y/o male with a PMH as outlined who was admitted via the ED on 10/18/2024 for acute alcohol withdrawal. He had recently been admitted and discharged on 09/20/2024 for acute alcohol withdrawal. However he subsequently started drinking again and said he drank about 8-12 beers daily. His last alcohol use was on the morning of admission. He denied any shakes or tremors or hallucinations but admitted to feeling restless. Serum alcohol level was 414. URine tox was negative. He was admitted and managed for acute alcohol withdrawal. He was started on alcohol withdrawal protocol with phenobarbital as well as adjunctive meds for symptomatic relief. He tolerated the 3 day detox. HE remained stable and was discharged home on 10/21/2024. He is to follow up with his PCP within 1-2 weeks. Patient was seen and examined prior to discharge. He had no active complaints. Review of systems was otherwise negative. Labs and vitals reviewed. Home meds reviewed and reconciled. Physical Exam Const alert, oriented x3 and no apparent distress General Appearance: cooperative and comfortable HEENT normocephalic, head/scalp atraumatic, hearing grossly normal bilaterally, moist oral mucous membranes and oropharynx normal Mouth: oral and palatal mucosa normal Eyes PERRL, EOMs intact bilaterally and conjunctivae normal Neck no lymphadenopathy, supple and no JVD Lymph Lymphatic: no lymphadenopathy noted and no lymphedema noted Resp normal respiratory effort, normal air movement and clear to auscultation bilaterally Cardio regular rate, regular rhythm, S1 normal heart sound, S2 normal heart sound and no murmurs GI normal to inspection, nondistended, normoactive bowel sounds, soft to palpation, non-tender and non-distended Extremity normal to inspection, full ROM, normal capillary refill, no clubbing, cyanosis or edema and no calf tenderness General Extremity: no tenderness to palpation of joints or extremities Skin General Skin Exam: no breakdown Neuro oriented x3, CN's II-XII intact bilaterally, moves all extremities, no focal motor deficits, no sensory deficits noted and deep tendon reflexes 2+ bilaterally Sensorium / Orientation: awake Motor Exam: strength 5/5 throughout and general weakness Psych thought process normal, cooperative and affect normal Appearance: appropriate Weight / BMI Weight Weight: 216 lb 0.848 oz Body Mass Index (BMI) 30.1 ABG / Lab / Microbiology Data 10/18/24 10:10 10/18/24 10:10 D/C Instructions Discharge Activity: Return to Normal Activity Weight Bearing Status: Weight bearing as tolerated Call your doctor if you observe: Fever of 101 or Higher, Shortness of breath, Dizziness, Swelling in the ankles, Chest pain and Increased palpitations (irregular heartbeat) DC O2, CPAP, BIPAP Needs Home O2 Discharge instructions: No DC home with Oxygen: No Meaningful Use Info Meaningful Use Meaningful Use Diagnoses (Choose all that apply): None applicable Discharge Plan Admission Admit Date/Time: 10/18/24 11:23 Primary Reason for Your Visit: acute alcohol withdrawal Attending Provider: Sherin Cartagena Primary Care Provider: Hannah Bustos Consulting Providers: Joon Bellamy Instructions Patient Instructions: Alcohol Withdrawal: What to Expect Discharge Orders/Prescriptions Prescriptions: Continued gabapentin 300 mg capsule 600 mg PO TID melatonin 5 mg tablet 5 mg PO QHS omeprazole 20 mg tablet,delayed release (DR/EC) 20 mg PO DAILY calcipotriene 0.005 % cream 1 applic topical BID PRN (Reason: psoriasis) cyclobenzaprine 10 mg tablet 10 mg PO QHS PRN PRN (Reason: muscle spasm) Referrals / Follow Up: Hannah Bustos MD [Primary Care Provider] - Within 1 Week Care Physician,No Primary [Non-Staff] - Disposition Disposition (needs filled in before D/C Order can be placed): Home, Self Care Charges/Coding Visit Charges Inpatient E&M: 82485 Disch Hosp >30min
--- NOTE | 2024-10-21 10:53 | PHA.DC.MR.R ---
Pharmacy [place] Med Reconciliation Pharmacy Service has performed discharge medication reconciliation for this patient. The patient's discharge medication list was reviewed for discrepancies and discrepancies were resolved. Medications at Discharge Home Medications gabapentin 300 mg capsule 600 mg PO TID neuropathy 09/17/24 melatonin 5 mg tablet 5 mg PO QHS sleep 09/17/24 omeprazole 20 mg tablet,delayed release 20 mg PO DAILY stomach 09/17/24 calcipotriene 0.005 % topical cream 1 applic topical BID PRN psoriasis 10/18/24 cyclobenzaprine 10 mg tablet 10 mg PO QHS PRN PRN muscle spasm 10/18/24
== END 2024-10-21 11:24 | disposition home or self-care (01) | DRG 775 ==
LOC: ED 11:19 → PCU 11:52 → MS3 10-20 22:50
PROVIDERS: Admitting Provider Internal Medicine; Emergency Provider Emergency Medicine; PCP Family Medicine; Visit Provider Student in an Organized Health Care Education/Training Program
DX: F10.239 Alcohol dependence with withdrawal, unspecified (principal); E66.811 Obesity, class 1; J44.9 Chronic obstructive pulmonary disease, unspecified; I10 Essential (primary) hypertension; G47.33 Obstructive sleep apnea (adult) (pediatric); K21.9 Gastro-esophageal reflux disease without esophagitis; F17.210 Nicotine dependence, cigarettes, uncomplicated; Z68.32 Body mass index [BMI] 32.0-32.9, adult; Z86.73 Personal history of transient ischemic attack (TIA), and cerebral infarction without residual deficits; Y90.8 Blood alcohol level of 240 mg/100 ml or more
CPT/HCPCS: 80053; 80307; 82077; 85025; 99284; 99406; A4216

== ENCOUNTER 2025-02-05 17:43 | Inpatient (IN) | payer MEDICAID, SELFPAY ==
[2025-02-05] VITALS (13 sets, daily range): BP systolic 100–165; BP diastolic 68–99; PULSE 95–126; RESP 12–22; TEMP 36.4–36.9; O2SAT 90–96; BMI 30.4; BMI 30.1
[2025-02-05 18:53] LABS: Hematocrit 48.1 % (40-54); Hemoglobin 16.8 g/dL (13.0-16.5); Immature Granulocytes Count 0.020 X10^3/uL (0.0-0.0); Mean Corp Hgb Conc 34.9 g/dL (32-36); Mean Corpuscular Volume 97.2 fL (80-94); Mean Platelet Vol. 9.1 fl (6.2-12.0); NRBC Flagged by Analyzer 0 % (0-5); Platelet Count 138 K/mm3 (150-450); RBC Distribution Width CV 14.7 % (11.6-14.6); RBC Distribution Width SD 53.1 fl (35.1-43.9); Red Blood Count 4.95 M/mm3 (4.6-6.2); White Blood Count 5.3 K/mm3 (4.4-11.0)
[2025-02-05 19:21] LABS: Alcohol, Blood (Medical)-Serum 277.0 mg/dL (<=10.0)
[2025-02-05 19:26] LABS: AST(SGOT) 156 U/L (<=37); Alanine Aminotransfer ALT/SGPT 105 U/L (<=46); Albumin, Serum 3.9 g/dL (3.5-5.0); Alkaline Phosphatase 130 U/L (40-129); Anion Gap 18 (5-15); BUN 4 mg/dL (4-19); BUN/Creat Ratio 6.8 RATIO (10-20); Calcium,Total 8.1 mg/dL (7.6-11.0); Carbon Dioxide 19.4 mmol/L (21.0-32.0); Chloride 96 mmol/L (98-108); Estimated Creatinine Clearance 175.73 ml/min (50-250); Globulin 3.0 g/dL (2.2-4.2); Glucose 84 mg/dL (70-99); Potassium 4.1 mmol/L (3.3-5.1)
[2025-02-05 19:41] LABS: Barbiturate Urine NEGATIVE (< 200 ng/mL); Benzodiazepine Urine NEGATIVE (< 200 ng/mL); PCP Urine NEGATIVE (< 25 ng/mL); THC Urine NEGATIVE (< 50 ng/mL)
--- NOTE | 2025-02-05 19:46 | RAD_ITS ---
PROCEDURE: RAD/Chest PA and Lateral
--- NOTE | 2025-02-05 20:43 | EX.ED.SAOD ---
HPI History of Present Illness Chief Complaint: Substance Abuse Informant: patient Onset/Context/Timing Onset: Today Context: Gradual Onset Timing: Continuous Worsened by: Nothing Relieved by: Nothing Associated Symptoms Associated Symptoms: Positive for tremor and palpatations; Negative for vomiting*, diarrhea*, fever*, rash*, seizure, change in mental status, suicidal ideation or homicidal ideation Narrative Narrative: Patient presents for detox from alcohol. Patient states he drinks approximately 7-8 tall boys per day. Patient states his last drink was approximately 1 hour prior to arrival. Patient states he has been through detox here in the past. Patient states his last detox was in September of this year. Patient also admits to some shortness of breath and cough. Patient noted he is wheezing tonight. Patient is concerned he may have pneumonia. Patient denies any fevers or chills. Patient denies any sputum production. [facility] Medical History (Updated 02/05/25 @ 21:[address] Brunilda Thompson DO) Thrombocytopenia Erythrocytosis Admitted to alcohol detoxification center Alcohol abuse Obesity (BMI 30.0-34.9) Tobacco dependence Alcohol abuse Anxiety Sleep apnea Smoker Hypertension TIA (transient ischemic attack) EtOH dependence Home Medications ?Medication ?Instructions ?Recorded ?Last Taken ?Type gabapentin 300 mg capsule 600 mg PO TID neuropathy 09/17/24 09/17/24 History melatonin 5 mg tablet 5 mg PO QHS sleep 09/17/24 09/16/24 History omeprazole 20 mg tablet,delayed 20 mg PO DAILY stomach 09/17/24 09/16/24 History release calcipotriene 0.005 % topical cream 1 applic topical BID PRN psoriasis 10/18/24 Unknown History albuterol sulfate 90 mcg/actuation 2 puff inhalation Q6H PRN PRN 02/05/25 Unknown History aerosol inhaler shortness of breath or wheezing Allergy/AdvReac Type Severity Reaction Status Date / Time bee pollen Allergy Anaphylaxis Verified 02/05/25 17:44 nickel AdvReac Rash Verified 02/05/25 17:44 tramadol AdvReac Nausea Verified 02/05/25 17:44 Surgical History no surgical history no surgical history Social History (Updated 02/05/25 @ 21:[address] Brunilda Thompson DO) household members: spouse housing: house Smoking Status: Current every day smoker tobacco type: cigarettes Smoking packs per day: 2 Smoking cigarettes per day: 40.0 alcohol intake: current alcohol intake frequency: 3 or more drinks per day Alcohol type: beer substance use type: does not use ROS ROS ED Constitutional Constitutional ED: Denies chills or fever(s) Eyes Eyes: Denies blurry vision or change in vision ENT ENT ED: Denies rhinorrhea or sore throat Cardiovascular Cardiovascular: Denies chest pain or palpitations Respiratory/Chest Respiratory/Chest: Reports cough and dyspnea Gastrointestinal Gastrointestinal: Denies nausea or vomiting Genitourinary Genitourinary ED: Denies dysuria or hematuria Musculoskeletal Musculoskeletal: Denies back pain or neck pain Integumentary Denies abscess or rash Neurologic Neurologic: Denies headache(s) or weakness Allergic/Immunologic Allergic/Immunologic ED: Denies mouth swelling or urticaria EXAM Physical Exam Const Vital Signs: 02/05/25 17:44 02/05/25 18:27 02/05/25 18:51 Temperature 97.6 F L Temperature Source Oral Pulse Rate 101 H 98 Respiratory Rate 19 H 20 H Respiratory Pattern Blood Pressure 119/76 146/93 H Blood Pressure Mean 90 110 Blood Pressure Location Right Arm Pulse Ox 90 92 92 Oxygen Delivery Method Room Air Room Air Nasal Cannula Oxygen Flow Rate (L/min) 2 02/05/25 18:51 02/05/25 19:00 02/05/25 20:00 Temperature Temperature Source Pulse Rate 95 101 H 98 Respiratory Rate 22 H 20 H 12 Respiratory Pattern Blood Pressure 145/95 H 121/68 H 165/99 H Blood Pressure Mean 111 85 121 Blood Pressure Location Pulse Ox 93 91 96 Oxygen Delivery Method Nasal Cannula Nasal Cannula Nasal Cannula Oxygen Flow Rate (L/min) 2 2 2 02/05/25 20:04 02/05/25 20:07 02/05/25 20:30 Temperature Temperature Source Pulse Rate 108 H 109 H Respiratory Rate 14 18 Respiratory Pattern Normal Blood Pressure 150/83 H Blood Pressure Mean 105 Blood Pressure Location Pulse Ox 96 93 Oxygen Delivery Method Nasal Cannula Nasal Cannula Oxygen Flow Rate (L/min) 2 2 Positive well nourished and well developed Constitutional Narrative: BMI is 30.5. General Appearance ED: well developed and NAD HEENT Reports moist mucous membranes atraumatic Neck supple and no JVD Resp normal respiratory effort Auscultation: wheezes expiratory wheezes and throughout Cardio regular rhythm Rate: tachycardic GI soft to palpation, non-tender and non-distended Neuro oriented x3, CN's II-XII intact bilaterally and no sensory deficits noted Mylene Coma Scale: document GCS findings Spontaneous Obeys Commands Oriented 15 Sensorium / Orientation: alert Speech: speech normal Motor Exam: strength 5/5 throughout Psych mental status grossly normal MDM MDM MDM Narrative Medical decision making narrative: Medical screening labs will be obtained. CBC will be obtained to assess for leukocytosis and anemia. Comprehensive metabolic profile will be obtained to assess for electrolyte abnormality and renal function. Serum alcohol level will be obtained to assess for alcohol intoxication. Urine drug screen will be obtained to assess for substance abuse. PA and lateral chest x-ray will be obtained to assess for pneumonia or bronchitis. History & Record Review Additional record(s) reviewed:: Prior inpatient record and Prior labs Lab Data Attestation: I reviewed the patient's lab results. Lab results narrative: CBC was reviewed and was essentially within normal limits. Comprehensive metabolic profile was reviewed. AST was mildly elevated at 156, ALT was 105, and alkaline phosphatase was 130. The remainder is within normal limits. Serum alcohol level was reviewed and was elevated to 77.0. Urine drug screen was reviewed and was negative. Labs: Laboratory Results - last 24 hr 02/05/25 02/05/25 18:45 18:52 WBC 5.3 RBC 4.95 Hgb 16.8 H Hct 48.1 MCV 97.2 H MCH 33.9 H MCHC 34.9 RDW Std Deviation 53.1 H RDW Coeff of [place] 14.7 H Plt Count 138 L MPV 9.1 Immature Gran % (Auto) 0.400 Neut % (Auto) 57.4 Lymph % (Auto) 25.5 [place] % (Auto) 14.5 H Eos % (Auto) 1.1 Baso % (Auto) 1.1 H Absolute Neuts (auto) 3.0 Absolute Lymphs (auto) 1.35 Nucleated RBC % 0 Sodium 134 Potassium 4.1 Chloride 96 L Carbon Dioxide 19.4 L Anion Gap 18 H BUN 4 Creatinine 0.54 L Estim Creat Clear Calc 175.73 Est GFR (MDRD) Non-Af 116 BUN/Creatinine Ratio 6.8 L Glucose 84 Calcium 8.1 Total Bilirubin 0.47 AST 156 H ALT 105 H Alkaline Phosphatase 130 H Total Protein 6.9 Albumin 3.9 Globulin 3.0 Albumin/Globulin Ratio 1.3 Urine Opiates Screen NEGATIVE U Buprenorphine Qual NEGATIVE Ur Oxycodone Screen NEGATIVE Urine Methadone Screen NEGATIVE Urine Fentanyl Screen NEGATIVE Ur Barbiturates Screen NEGATIVE Ur Phencyclidine Scrn NEGATIVE Ur Amphetamines Screen NEGATIVE U Benzodiazepines Scrn NEGATIVE Urine Cocaine Screen NEGATIVE U Cannabinoids Screen NEGATIVE Ethyl Alcohol 277.0 H Radiography Diagnostic Testing: Clinical Impression(s) from Imaging Studies Chest X-Ray 02/05/25 19:46 IMPRESSION: Small right pleural effusion with right basilar atelectasis/infiltrate. Reading [facility] Chest x-ray was obtained. There are 2 views. On my independent interpretation, there is a small right pleural effusion with right basilar atelectasis. Radiologist also interpreted the x-ray and agrees. Management Discussion w/another healthcare provider: Hospitalist Treatment and Re-Evaluation Narrative: Patient was given a DuoNeb aerosol here. Patient was advised of the findings. Case was discussed with the hospitalist. She will admit the patient to her service for alcohol detox. Patient understood and was agreeable with the plan. All questions were answered. Discharge Plan Dx/Rx/DC Orders Clinical Impression: Alcohol withdrawal, COPD exacerbation, Chronic back pain Disposition Disposition: Acute Care Hospital [facility] Discharge Date/Time: 02/05/25 21:34
--- NOTE | 2025-02-05 20:47 | PCM.HP.STD ---
HPI - General General Date of Admission: 02/05/25 Date of Service: 02/05/25 Chief Complaint: EtOH Detox HPI Narrative MARIA DE JESUS HOGAN, is a 59 M who presented to the emergency department [facility] on 02/05/2025 requesting detox from alcohol. Patient states he has had a period of sobriety for about a year and a half but it has been a while ago. He was here in September and detoxed at that time but did not have significant success then. He also smokes up to 2 packs of cigarettes daily. Currently he is drinking about 8-9 tall boys daily. His last drink was earlier today. He states currently he is pretty tremulous and having some nausea. He appears shaky on exam. He also complained of some wheezing and intermittent cough. He states that he would like to go with an intensive outpatient rehab program after discharge. He states that gave him pretty good success previously when he was sober. He presents to the emergency department with his who is also a drinker and requesting detox. Vital signs on presentation showed a temperature of 97.6, heart rate 101, respiratory 19, blood pressure was 119/76 and pulse ox 90% on room air. Patient is not oxygen dependent at baseline. CBC showed erythrocytosis with a hemoglobin of 16.8 and macrocytosis as well as thrombocytopenia which appears to be chronic. Platelet count was stable at 138,000. Chemistry panel showed an anion gap metabolic acidosis but patient as alcohol level of 227 so highly suspect this is an a mixture of an alcoholic and ketoacidosis from starvation. AST was elevated at 156, ALT 105, alk phos was 130. Urine tox screen was negative blood alcohol level was 277. Chest x-ray showed a very small right pleural effusion but was otherwise unremarkable for acute findings. He was treated with IV Ativan and 1 DuoNeb in the emergency department. Wheezing did improve with aerosol. [facility] Medical History (Updated 02/05/25 @ 21:[address] Brunilda Thompson DO) Thrombocytopenia Erythrocytosis Admitted to alcohol detoxification center Alcohol abuse Obesity (BMI 30.0-34.9) Tobacco dependence Alcohol abuse Anxiety Sleep apnea Smoker Hypertension TIA (transient ischemic attack) EtOH dependence Home Medications ?Medication ?Instructions ?Recorded ?Last Taken ?Type gabapentin 300 mg capsule 600 mg PO TID neuropathy 09/17/24 09/17/24 History melatonin 5 mg tablet 5 mg PO QHS sleep 09/17/24 09/16/24 History omeprazole 20 mg tablet,delayed 20 mg PO DAILY stomach 09/17/24 09/16/24 History release calcipotriene 0.005 % topical cream 1 applic topical BID PRN psoriasis 10/18/24 Unknown History albuterol sulfate 90 mcg/actuation 2 puff inhalation Q6H PRN PRN 02/05/25 Unknown History aerosol inhaler shortness of breath or wheezing Allergy/AdvReac Type Severity Reaction Status Date / Time bee pollen Allergy Anaphylaxis Verified 02/05/25 17:44 nickel AdvReac Rash Verified 02/05/25 17:44 tramadol AdvReac Nausea Verified 02/05/25 17:44 no significant family history Surgical History no surgical history no surgical history Social History (Updated 02/05/25 @ 21:[address] Brunilda Thompson, DO) household members: spouse housing: house Smoking Status: Current every day smoker tobacco type: cigarettes Smoking packs per day: 2 Smoking cigarettes per day: 40.0 alcohol intake: current alcohol intake frequency: 3 or more drinks per day Alcohol type: beer substance use type: does not use ROS Constitutional Constitutional: Reports malaise; Denies anorexia, change in weight, chills, fatigue, fever(s), night sweats, weakness or other Eyes Eyes: Denies blurry vision, change in eye color, change in vision, discharge from eye(s), double vision, erythema, eye pain, loss of vision or other ENT HEENT: Denies abnormal hearing, dysphagia, ear pain, epistaxis, headache(s), hearing loss, nasal congestion, nasal discharge, post nasal drip, sinus pressure, sore throat or other Cardiovascular Cardiovascular: Denies chest pain, claudication, dyspnea on exertion, edema, lightheadedness, orthopnea, palpitations, paroxysmal nocturnal dyspnea, rapid heart rate, syncope or other Respiratory/Chest Respiratory/Chest: Reports cough and wheezing; Denies dyspnea, excessive phlegm production, hemoptysis, productive cough, shortness of breath at rest, shortness of breath with exertion or other Gastrointestinal Gastrointestinal: Reports nausea; Denies abdominal pain, coffee ground emesis, constipation, diarrhea, dyspepsia, hematemesis, hematochezia, loose stools, melena, vomiting or other Genitourinary Genitourinary: Denies burning urination, difficulty urinating, dysuria, hematuria, nocturia, urinary frequency, urinary hesitancy, urinary incontinence, urinary urgency or other Musculoskeletal Musculoskeletal: Denies arthralgias, back pain, joint pain, joint stiffness, joint swelling, myalgias, neck pain or other Neurologic Neurologic: Reports tremor(s); Denies abnormal gait, abnormal speech, confusion, disequilibrium, dizziness, focal weakness, headache(s), numbness, paresthesias, seizure-like activity, seizures, syncope, tingling or other Psychiatric Psychiatric: Denies anxiety, depression, homicidal ideation, suicidal ideation or other Endocrine Endocrinology: Denies change in body appearance, cold intolerance, excessive sweating, heat intolerance, polydipsia, polyuria or other Hematologic/Lymphatic Hematologic/Lymphatic: Denies anemia, easy bleeding, easy bruising, lymphadenopathy or other Allergic/Immunologic Allergic/Immunologic: Denies rhinitis, hives, eczemia, asthma or other Vital Signs Vital Signs Vital Signs: 02/05/25 17:44 02/05/25 18:27 02/05/25 18:51 Temperature 97.6 F L Temperature Source Oral Pulse Rate 101 H 98 Respiratory Rate 19 H 20 H Respiratory Pattern Blood Pressure 119/76 146/93 H Blood Pressure Mean 90 110 Blood Pressure Location Right Arm Pulse Ox 90 92 92 Oxygen Delivery Method Room Air Room Air Nasal Cannula Oxygen Flow Rate (L/min) 2 02/05/25 18:51 02/05/25 19:00 02/05/25 20:00 Temperature Temperature Source Pulse Rate 95 101 H 98 Respiratory Rate 22 H 20 H 12 Respiratory Pattern Blood Pressure 145/95 H 121/68 H 165/99 H Blood Pressure Mean 111 85 121 Blood Pressure Location Pulse Ox 93 91 96 Oxygen Delivery Method Nasal Cannula Nasal Cannula Nasal Cannula Oxygen Flow Rate (L/min) 2 2 2 02/05/25 20:04 02/05/25 20:07 02/05/25 20:30 Temperature Temperature Source Pulse Rate 108 H 109 H Respiratory Rate 14 18 Respiratory Pattern Normal Blood Pressure 150/83 H Blood Pressure Mean 105 Blood Pressure Location Pulse Ox 96 93 Oxygen Delivery Method Nasal Cannula Nasal Cannula Oxygen Flow Rate (L/min) 2 2 Weight Weight: 96.3 kg Body Mass Index (BMI) 30.4 Physical Exam Const alert, oriented x3, no apparent distress and well nourished; Negative for average body habitus or healthy appearing Constitutional Narrative: Tremulous, upper middle-aged, white male, sitting up in bed watching television, appears older than stated age, appears to be actively withdrawing but no signs of distress otherwise General Appearance: cooperative HEENT normocephalic, head/scalp atraumatic and hearing grossly normal bilaterally; Negative for moist oral mucous membranes HEENT Narrative: Dentition is poor, Mallampati is 2-3, no thrush, mucous membranes are slightly dry Eyes EOMs intact bilaterally and conjunctivae normal Eyes Narrative: No scleral icterus Neck no lymphadenopathy and supple Neck Narrative: Trachea midline Resp normal respiratory effort, no retractions, no use of accessory muscles and clear to auscultation bilaterally Resp Narrative: Diffusely diminished but currently clear without any adventitious sounds Auscultation: Negative for rales, rhonchi or wheezes Cardio regular rhythm, S1 normal heart sound, S2 normal heart sound, no murmurs, no rub, no gallops and no clicks Cardio Narrative: Mild tachycardia GI normal to inspection, nondistended, normoactive bowel sounds, soft to palpation and non-tender Extremity no clubbing, cyanosis or edema Extremity Narrative: 2+ pedal and radial pulses Neuro moves all extremities and no focal motor deficits Speech: speech normal Psych Psych Narrative: Affect is within normal limits, patient does appear anxious and in acute withdrawal Mood & Affect: anxious Results Lab / Micro Data 02/05/25 18:45 02/05/25 18:45 Labs: Laboratory Results - last 24 hr 02/05/25 18:45: WBC 5.3, RBC 4.95, Hgb 16.8 H, Hct 48.1, MCV 97.2 H, MCH 33.9 H, MCHC 34.9, RDW Std Deviation 53.1 H, RDW Coeff of [place] 14.7 H, Plt Count 138 L, MPV 9.1, Immature Gran % (Auto) 0.400, Neut % (Auto) 57.4, Lymph % (Auto) 25.5, [place] % (Auto) 14.5 H, Eos % (Auto) 1.1, Baso % (Auto) 1.1 H, Absolute Neuts (auto) 3.0, Absolute Lymphs (auto) 1.35, Nucleated RBC % 0, Sodium 134, Potassium 4.1, Chloride 96 L, Carbon Dioxide 19.4 L, Anion Gap 18 H, BUN 4, Creatinine 0.54 L, Estim Creat Clear Calc 175.73, Est GFR (MDRD) Non-Af 116, BUN/Creatinine Ratio 6.8 L, Glucose 84, Calcium 8.1, Total Bilirubin 0.47, AST 156 H, ALT 105 H, Alkaline Phosphatase 130 H, Total Protein 6.9, Albumin 3.9, Globulin 3.0, Albumin/Globulin Ratio 1.3, Ethyl Alcohol 277.0 H 02/05/25 18:52: Urine Opiates Screen NEGATIVE, U Buprenorphine Qual NEGATIVE, Ur Oxycodone Screen NEGATIVE, Urine Methadone Screen NEGATIVE, Urine Fentanyl Screen NEGATIVE, Ur Barbiturates Screen NEGATIVE, Ur Phencyclidine Scrn NEGATIVE, Ur Amphetamines Screen NEGATIVE, U Benzodiazepines Scrn NEGATIVE, Urine Cocaine Screen NEGATIVE, U Cannabinoids Screen NEGATIVE Imaging Radiology Impression Chest X-Ray 02/05/25 19:46 IMPRESSION: Small right pleural effusion with right basilar atelectasis/infiltrate. Reading Location: [facility] Assessment & Plan Assessment/Plan (1) Alcoholic hepatitis without ascites: (2) COPD exacerbation: (3) Alcohol withdrawal: PLAN: Plan Acute alcohol withdrawal with history of significant alcohol abuse - Last drink was prior to coming in - Blood alcohol level on admission was 277 - Appears to be acutely withdrawing on admission - Phenobarbital taper - Thiamine and folate - CIWA protocol with as needed oral Ativan - Supportive medication for symptom management - Case management/social work consultation - 180 consultation for assistance with discharge planning--> patient on admission was interested in intensive outpatient rehab Alcoholic hepatitis without ascites - Patient with transaminitis consistent with alcoholic hepatitis on admission - No evidence of ascites on exam and no imaging performed - Recommend cessation - Transaminases should improve with cessation of alcohol Hypoxia secondary to acute exacerbation of COPD - Patient wheezing on arrival however not significantly wheezy on my exam but requiring oxygen - Not oxygen dependent at baseline but requiring 2 L at present - P.o. prednisone with taper recommended at discharge - Scheduled and as needed nebulizers - Incentive spirometry - Acapella - Check respiratory viral panel/COVID/flu/RSV - Mucinex 1200 p.o. twice daily Chronic bilateral lower extremity neuropathy - Continue home gabapentin as scheduled GERD - Continue home PPI History of psoriasis - Continue home topical therapy as needed Insomnia - Continue home melatonin as needed Tobacco abuse - Suspect patient has baseline COPD - Patient states he smokes at least 2 packs a day - Nicotine patch available - Highly recommend cessation and patient is aware and states he would like to stop smoking as well Obesity - BMI 30.5 - Recommend weight loss - Complicates treatment, prognosis, outcomes DVT prophylaxis - Low risk - Encouraged frequent and early ambulation CODE STATUS Full code Charges/Coding Visit Charges Inpatient E&M: 83548 Init Hosp L2
[2025-02-05] MEDS: hydrOXYzine PAM 25 MG Capsule 50 MG PO (22:36)
[2025-02-06] VITALS (12 sets, daily range): BP systolic 130–161; BP diastolic 76–109; PULSE 87–116; RESP 14–22; TEMP 36.1–37.1; O2SAT 92–96
[2025-02-06] MEDS: Nicotine (PBKC) 21 MG Patch TD ×2 (02:33→09:19)
[2025-02-06 06:15] LABS: AST(SGOT) 145 U/L (<=37); Alanine Aminotransfer ALT/SGPT 104 U/L (<=46); Albumin, Serum 3.9 g/dL (3.5-5.0); Alkaline Phosphatase 134 U/L (40-129); Anion Gap 11 (5-15); BUN 5 mg/dL (4-19); BUN/Creat Ratio 7.4 RATIO (10-20); Calcium,Total 8.6 mg/dL (7.6-11.0); Carbon Dioxide 30.7 mmol/L (21.0-32.0); Chloride 94 mmol/L (98-108); Estimated Creatinine Clearance 152.32 ml/min (50-250); Globulin 3.2 g/dL (2.2-4.2); Glucose 94 mg/dL (70-99); Magnesium 2.2 mg/dL (1.5-2.2); Potassium 4.0 mmol/L (3.3-5.1)
[2025-02-06] MEDS: hydrOXYzine PAM 25 MG Capsule 50 MG PO ×2 (06:31→10:04)
--- NOTE | 2025-02-06 09:02 | CASEMGMT ---
Social Work Founder And President gave pt documents for LW/POA along w/SW rack card should he want to make an appt to return to complete the documents. Pt does not want to complete the documents at this time. SW also gave pt information for utilities assistance. Pt is not on home O2. Should pt need home O2, SW reviewed options w/pt. Pt agreeable to [facility] should it be needed. SW remains available for any social service needs. ANAYA Trejo
[2025-02-06] MEDS: Thiamine Hydrochloride 100 MG Tablet PO (09:17)
[2025-02-06] MEDS: Ensure Plus High Protein 120 ML LIQUID PO ×2 (09:18→14:29)
[2025-02-06] MEDS: FLU VACCINE 2025-26(6MOS UP) 45 MCG/0.5 ML SYRINGE IM (09:27)
--- NOTE | 2025-02-06 10:25 | PN.HOSP_ITS ---
Reason for Visit
--- NOTE | 2025-02-06 10:25 | PCM.PN.HOSP ---
Reason for Visit Chief Complaint: EtOH Detox Subjective Subjective Feeling well. No events overnight. Objective Data Objective Data Vital Signs: Vital Signs Temp Pulse Resp BP Pulse Ox O2 Del Method O2 Flow Rate 36.7 C 112 H 17 130/90 H 96 Room Air 2 02/06/25 09:15 02/06/25 09:15 02/06/25 09:15 02/06/25 09:15 02/06/25 09:15 02/06/25 09:15 02/06/25 02:31 Oxygen Flow Rate (L/min) 2 Oxygen Delivery Method Room Air Weight: 95.3 kg Body Mass Index (BMI) 30.1 Intake & Output: Intake and Output for Last 24 Hours 02/04/25 02/05/25 02/06/25 23:59 23:59 23:59 Intake Total 920 / 920 480 / 480 Balance 920 / 920 480 / 480 Lab / Micro Data 02/05/25 18:45 02/06/25 05:20 Labs: Laboratory Results - last 24 hr 02/05/25 18:45: WBC 5.3, RBC 4.95, Hgb 16.8 H, Hct 48.1, MCV 97.2 H, MCH 33.9 H, MCHC 34.9, RDW Std Deviation 53.1 H, RDW Coeff of [place] 14.7 H, Plt Count 138 L, MPV 9.1, Immature Gran % (Auto) 0.400, Neut % (Auto) 57.4, Lymph % (Auto) 25.5, [place] % (Auto) 14.5 H, Eos % (Auto) 1.1, Baso % (Auto) 1.1 H, Absolute Neuts (auto) 3.0, Absolute Lymphs (auto) 1.35, Nucleated RBC % 0, Sodium 134, Potassium 4.1, Chloride 96 L, Carbon Dioxide 19.4 L, Anion Gap 18 H, BUN 4, Creatinine 0.54 L, Estim Creat Clear Calc 175.73, Est GFR (MDRD) Non-Af 116, BUN/Creatinine Ratio 6.8 L, Glucose 84, Calcium 8.1, Total Bilirubin 0.47, AST 156 H, ALT 105 H, Alkaline Phosphatase 130 H, Total Protein 6.9, Albumin 3.9, Globulin 3.0, Albumin/Globulin Ratio 1.3, Ethyl Alcohol 277.0 H 02/05/25 18:52: Urine Opiates Screen NEGATIVE, U Buprenorphine Qual NEGATIVE, Ur Oxycodone Screen NEGATIVE, Urine Methadone Screen NEGATIVE, Urine Fentanyl Screen NEGATIVE, Ur Barbiturates Screen NEGATIVE, Ur Phencyclidine Scrn NEGATIVE, Ur Amphetamines Screen NEGATIVE, U Benzodiazepines Scrn NEGATIVE, Urine Cocaine Screen NEGATIVE, U Cannabinoids Screen NEGATIVE 02/06/25 05:20: Sodium 135, Potassium 4.0, Chloride 94 L, Carbon Dioxide 30.7, Anion Gap 11, BUN 5, Creatinine 0.62 L, Estim Creat Clear Calc 152.32, Est GFR (MDRD) Non-Af 112, BUN/Creatinine Ratio 7.4 L, Glucose 94, Calcium 8.6, Phosphorus 4.5, Magnesium 2.2, Total Bilirubin 0.71, AST 145 H, ALT 104 H, Alkaline Phosphatase 134 H, Total Protein 7.1, Albumin 3.9, Globulin 3.2, Albumin/Globulin Ratio 1.2 Micro: Microbiology 02/05/25 23:20 Mucosa - Nasopharyngeal Respiratory Panel (PCR) - Final 02/05/25 21:15 Mucosa - Nose SARS-CoV-2, Influenza & RSV (PCR) - Final Radiography Diagnostic Testing: Radiology Impression Chest X-Ray 02/05/25 19:46 IMPRESSION: Small right pleural effusion with right basilar atelectasis/infiltrate. Reading Location: [facility] Physical Exam Const alert and no apparent distress Constitutional Narrative: Pleasant. Cooperative HEENT head/scalp atraumatic Resp normal respiratory effort, no retractions, no use of accessory muscles and clear to auscultation bilaterally Cardio regular rate, regular rhythm, S1 normal heart sound and S2 normal heart sound GI normal to inspection, nondistended, normoactive bowel sounds, soft to palpation, non-tender and non-distended Extremity normal to inspection and full ROM Psych affect normal Assessment & Plan Assessment/Plan (1) Alcoholic hepatitis without ascites: (2) COPD exacerbation: (3) Alcohol withdrawal: PLAN: Plan Acute alcohol withdrawal with history of significant alcohol abuse Last drink was prior to coming in. Blood alcohol level on admission was 277. So far, patient is appearing well. Continue Phenobarbital taper, Thiamine and folate 180 consultation for assistance with discharge planning--> patient on admission was interested in intensive outpatient rehab Alcoholic hepatitis without ascites Trending down. Follow-up as outpatient Acute exacerbation of COPD Doing better. Was on oxygen temporarily. Now on prednisone burst 40 mg for 5 days. Chronic medical conditions: chronic bilateral lower extremity neuropathy- Continue home gabapentin as scheduled GERD- Continue home PPI History of psoriasis- Continue home topical therapy as needed Insomnia- Continue home melatonin as needed Tobacco abuse- Suspect patient has baseline COPD- Patient states he smokes at least 2 packs a day- Nicotine patch available- Highly recommend cessation and patient is aware and states he would like to stop smoking as well Obesity class I: - BMI 30.5- Recommend weight loss- Complicates treatment, prognosis, outcomes DVT prophylaxis - Low risk - Encouraged frequent and early ambulation CODE STATUS Full code Charges/Coding Visit Charges Inpatient E&M: 96858 Subs Hosp L2
--- NOTE | 2025-02-06 15:19 | ADDICTION ---
This copy writer met with PT to conduct ASAM, MSE, and AUDIT assessments and to plan for d/c. PT A+Ox4 and participated actively. All assessments completed and placed in PT's chart. PT expressed interest in following up with intensive outpatient treatment services, but wants to consult with his before making a commitment. PT provided with information on treatment agencies: [facility] and [facility]. PT expressed interest in Viv[facility] - assessment completed and nursing staff advised.
[2025-02-07] VITALS (9 sets, daily range): BP systolic 126–156; BP diastolic 74–107; PULSE 94–120; RESP 14–19; TEMP 36.6–36.9; O2SAT 92–96
[2025-02-07] MEDS: Ensure Plus High Protein 120 ML LIQUID PO ×3 (08:51→17:53)
[2025-02-07] MEDS: Thiamine Hydrochloride 100 MG Tablet PO (08:52)
[2025-02-07] MEDS: Nicotine (PBKC) 21 MG Patch TD (08:52)
--- NOTE | 2025-02-07 09:09 | PN.HOSP_ITS ---
Reason for Visit
--- NOTE | 2025-02-07 09:09 | PCM.PN.HOSP ---
Reason for Visit Chief Complaint: EtOH Detox Subjective Subjective Saw patient at bedside this morning. Sitting comfortably at edge of the bed, conversing normally, in no acute distress. Breathing comfortably at rest and only mild and expiratory wheezes noted on exam. Withdrawal symptoms have been well-controlled. Notably patient's is admitted here for alcohol detox to and he would like to coordinate discharge with her if possible as the only have 1 car. No other new concerns this morning. Objective Data Objective Data Vital Signs: Vital Signs Temp Pulse Resp BP Pulse Ox O2 Del Method O2 Flow Rate 98 F 120 H 14 138/95 H 96 Room Air 2 02/07/25 08:55 02/07/25 08:55 02/07/25 08:55 02/07/25 08:55 02/07/25 08:55 02/07/25 08:55 02/07/25 07:05 Oxygen Flow Rate (L/min) 2 Oxygen Delivery Method Room Air Weight: 95.3 kg Body Mass Index (BMI) 30.1 Intake & Output: Intake and Output for Last 24 Hours 02/05/25 02/06/25 02/07/25 23:59 23:59 23:59 Intake Total 920 / 920 2280 / 2280 Balance 920 / 920 2280 / 2280 Lab / Micro Data 02/05/25 18:45 02/06/25 05:20 Micro: Microbiology 02/05/25 22:00 Sputum, Expectorated/Coughed Gram Stain - Final 02/05/25 22:00 Sputum, Expectorated/Coughed Respiratory Culture - Preliminary Appears to be normal respiratory dre. Further studies to follow. 02/05/25 23:20 Mucosa - Nasopharyngeal Respiratory Panel (PCR) - Final 02/05/25 21:15 Mucosa - Nose SARS-CoV-2, Influenza & RSV (PCR) - Final Physical Exam Const alert and no apparent distress Constitutional Narrative: Pleasant. Cooperative HEENT head/scalp atraumatic Resp normal respiratory effort and no use of accessory muscles Resp Narrative: Breathing comfortably on room air at rest. Mild end expiratory wheezing noted on exam but otherwise good air movement throughout with no crackles noted. Cardio regular rate, regular rhythm, S1 normal heart sound and S2 normal heart sound GI normal to inspection, nondistended, normoactive bowel sounds, soft to palpation, non-tender and non-distended Extremity normal to inspection and full ROM Psych affect normal Assessment & Plan Assessment/Plan (1) Alcoholic hepatitis without ascites: (2) COPD exacerbation: (3) Alcohol withdrawal: PLAN: Plan Patient is a 59-year-old male who presented to [facility] ED on 02/05/2025 for alcohol detox. Acute alcohol withdrawal with history of significant alcohol abuse Last drink was prior to coming in. Blood alcohol level on admission was 277. So far, patient is appearing well. Continue Phenobarbital taper, Thiamine and folate 180 consultation for assistance with discharge planning--> patient on admission was interested in intensive outpatient rehab 02/07: Withdrawal symptoms well-controlled on phenobarb taper. Patient would like to return home on discharge but as above is interested in intensive outpatient therapy. His is also here for alcohol detox and he would like to coordinate discharge with her if possible as they have only 1 car. Alcoholic hepatitis without ascites Trending down. Follow-up as outpatient Acute exacerbation of COPD Doing better. Was on oxygen temporarily. Now on prednisone burst 40 mg for 5 days, stop date 02/11. Chronic medical conditions: chronic bilateral lower extremity neuropathy- Continue home gabapentin as scheduled GERD- Continue home PPI History of psoriasis- Continue home topical therapy as needed Insomnia- Continue home melatonin as needed Tobacco abuse- Suspect patient has baseline COPD- Patient states he smokes at least 2 packs a day- Nicotine patch in place per patient request- Highly recommend cessation and patient is aware and states he would like to stop smoking as well Obesity class I: - BMI 30.5- Recommend weight loss- Complicates treatment, prognosis, outcomes DVT prophylaxis - Low risk - Encouraged frequent and early ambulation CODE STATUS Full code Total clinical time spent by myself addressing the patient's medical issues, reviewing all the data, and collaborating with patient's care team: 36 minutes. Charges/Coding Visit Charges Inpatient E&M: 71799 Subs Hosp L2
[2025-02-07] MEDS: hydrOXYzine PAM 25 MG Capsule 50 MG PO (22:51)
[2025-02-08 02:23] VITALS: BP 149/105; PULSE 98; RESP 19; TEMP 36.6; O2SAT 94
[2025-02-08 05:45] LABS: Hematocrit 47.7 % (40-54); Hemoglobin 16.1 g/dL (13.0-16.5); Mean Corp Hgb Conc 33.8 g/dL (32-36); Mean Corpuscular Volume 101.1 fL (80-94); Mean Platelet Vol. 9.8 fl (6.2-12.0); Platelet Count 133 K/mm3 (150-450); RBC Distribution Width CV 14.4 % (11.6-14.6); RBC Distribution Width SD 54.6 fl (35.1-43.9); Red Blood Count 4.72 M/mm3 (4.6-6.2); White Blood Count 5.7 K/mm3 (4.4-11.0)
[2025-02-08 06:10] LABS: Anion Gap 12 (5-15); BUN 8 mg/dL (4-19); BUN/Creat Ratio 12.5 RATIO (10-20); Calcium,Total 9.1 mg/dL (7.6-11.0); Carbon Dioxide 28.5 mmol/L (21.0-32.0); Chloride 94 mmol/L (98-108); Estimated Creatinine Clearance 152.32 ml/min (50-250); Glucose 127 mg/dL (70-99); Potassium 3.6 mmol/L (3.3-5.1)
[2025-02-08 06:25] VITALS: BP 138/95; PULSE 103; RESP 17; TEMP 36.5; O2SAT 95
[2025-02-08] MEDS: hydrOXYzine PAM 25 MG Capsule 50 MG PO (06:31)
[2025-02-08 06:55] VITALS: PULSE 100; RESP 18; O2SAT 97
[2025-02-08] MEDS: Thiamine Hydrochloride 100 MG Tablet PO (08:28)
[2025-02-08] MEDS: Nicotine (PBKC) 21 MG Patch TD (08:28)
[2025-02-08] MEDS: Ensure Plus High Protein 120 ML LIQUID PO (08:36)
--- NOTE | 2025-02-08 09:28 | DCINST_ITS ---
Discharge Instructions
--- NOTE | 2025-02-08 09:28 | PCM.DC ---
Discharge Instructions DC O2, CPAP, BIPAP needs Home O2 Discharge instructions: No Dressing / Incision Discharge Activity: Return to Normal Activity Dressing / Incision Call your doctor if you observe: Fever of 101 or Higher, Shortness of breath, Dizziness, Fainting spells, Swelling in the ankles, Chest pain and Increased palpitations (irregular heartbeat) Follow Up Care Test Results: Test results from this visit will be discussed in further detail at your follow-up appointment, if applicable. Discharge Plan Admission Admit Date/Time: 02/05/25 21:01 Attending Provider: Harjinder Romero Primary Care Provider: Hannah Bustos Consulting Providers: Brunilda Thompson; Katelyn Cabello; Bryan Cox; Be Graham Discharge Orders/Prescriptions Prescriptions: New prednisone 20 mg tablet 40 mg PO DAILY 4 Days Qty: 8 0RF Continued albuterol sulfate 90 mcg/actuation HFA aerosol inhaler 2 puff INHALATION Q6H PRN PRN (Reason: shortness of breath or wheezing) gabapentin 300 mg capsule 600 mg PO TID melatonin 5 mg tablet 5 mg PO QHS omeprazole 20 mg tablet,delayed release (DR/EC) 20 mg PO DAILY calcipotriene 0.005 % cream 1 applic topical BID PRN (Reason: psoriasis) Referrals / Follow Up: Hannah Bustos MD [Primary Care Provider, Family Practice] - Within 1 Week Disposition Disposition (needs filled in before D/C Order can be placed): Home, Self Care
--- NOTE | 2025-02-08 09:49 | PHA.DC_ITS ---
Pharmacy DC Med Rec Counseling
--- NOTE | 2025-02-08 09:49 | PHA.DC.MC.R ---
Pharmacy [facility] Counseling Pharmacy Service has performed discharge medication reconciliation and counseling for this patient. 1. PREDNISONE 40MG PO DAILY X 4 DAYS The patient's discharge medication list was reviewed for discrepancies and discrepancies were resolved. The patient was counseled on the following discharge medications and changes in medications for homegoing were reviewed. The Reason for Use, instructions for use, and potential side effects were reviewed for all new medications. The patient's questions regarding all of their medications were answered. The patient was able to verbally demonstrate an understanding of their discharge medications. Patient counseled by clinical pharmacy managerGuicho. Medications at Discharge Home Medications gabapentin 300 mg capsule 600 mg PO TID neuropathy 09/17/24 melatonin 5 mg tablet 5 mg PO QHS sleep 09/17/24 omeprazole 20 mg tablet,delayed release 20 mg PO DAILY stomach 09/17/24 calcipotriene 0.005 % topical cream 1 applic topical BID PRN psoriasis 10/18/24 albuterol sulfate 90 mcg/actuation aerosol inhaler 2 puff inhalation Q6H PRN PRN shortness of breath or wheezing 02/05/25 prednisone 20 mg tablet 40 mg (2 x 20 mg) PO DAILY 4 days #8 tabs 02/08/25
--- NOTE | 2025-02-08 11:05 | PCM.DC.SUM ---
Providers Date of Admission: 02/05/25 Primary Care Physician: Dr. Hannah Bustos MD Reason For Visit: ETOH DETOX AND COPD EXACERBATION Diagnosis Discharge Diagnosis (1) Alcoholic hepatitis without ascites: Status: Acute Code(s): K70.10 - Alcoholic hepatitis without ascites (2) COPD exacerbation: Status: Chronic Code(s): J44.1 - Chronic obstructive pulmonary disease with (acute) exacerbation (3) Alcohol withdrawal: Status: Acute Code(s): F10.939 - Alcohol use, unspecified with withdrawal, unspecified Medications at Discharge Home Medications gabapentin 300 mg capsule 600 mg PO TID neuropathy 09/17/24 melatonin 5 mg tablet 5 mg PO QHS sleep 09/17/24 omeprazole 20 mg tablet,delayed release 20 mg PO DAILY stomach 09/17/24 calcipotriene 0.005 % topical cream 1 applic topical BID PRN psoriasis 10/18/24 albuterol sulfate 90 mcg/actuation aerosol inhaler 2 puff inhalation Q6H PRN PRN shortness of breath or wheezing 02/05/25 prednisone 20 mg tablet 40 mg (2 x 20 mg) PO DAILY 4 days #8 tabs 02/08/25 Hospital Course Operations None Procedures None Summary of Care Provided Minutes Spent on Discharge: 33 Hospital Course: Per HPI: MARIA DE JESUS HOGAN, is a 59 M who presented to the emergency department [facility] on 02/05/2025 requesting detox from alcohol. Patient states he has had a period of sobriety for about a year and a half but it has been a while ago. He was here in September and detoxed at that time but did not have significant success then. He also smokes up to 2 packs of cigarettes daily. Currently he is drinking about 8-9 tall boys daily. His last drink was earlier today. He states currently he is pretty tremulous and having some nausea. He appears shaky on exam. He also complained of some wheezing and intermittent cough. He states that he would like to go with an intensive outpatient rehab program after discharge. He states that gave him pretty good success previously when he was sober. He presents to the emergency department with his who is also a drinker and requesting detox. Vital signs on presentation showed a temperature of 97.6, heart rate 101, respiratory 19, blood pressure was 119/76 and pulse ox 90% on room air. Patient is not oxygen dependent at baseline. CBC showed erythrocytosis with a hemoglobin of 16.8 and macrocytosis as well as thrombocytopenia which appears to be chronic. Platelet count was stable at 138,000. Chemistry panel showed an anion gap metabolic acidosis but patient as alcohol level of 227 so highly suspect this is an a mixture of an alcoholic and ketoacidosis from starvation. AST was elevated at 156, ALT 105, alk phos was 130. Urine tox screen was negative blood alcohol level was 277. Chest x-ray showed a very small right pleural effusion but was otherwise unremarkable for acute findings. He was treated with IV Ativan and 1 DuoNeb in the emergency department. Wheezing did improve with aerosol. Hospital Course: 1. Acute alcohol withdrawal history of significant alcohol abuse and alcoholic hepatitis?59-year-old male presents to the hospital requesting detox from alcohol. He has gone through detox before. He was started on the detox protocol which she tolerated very well. However this morning he was requesting discharge home. And he would like to time it with his who is also going through alcohol detox. He says that he is feeling great and would like to go home. Denies any abdominal pain or nausea and vomiting. CIWA scores this morning were 9 however he states that he would still like to go home. Discussed the plan for possible discharge and he expressed understanding of the risks and benefits of going home and would like to go home today. Given the elevation in his LFTs I do recommend outpatient follow-up with his PCP to obtain a referral for gastroenterology in his area I believe he lives in [place]. 2. COPD exacerbation?he is not requiring any oxygen and was started on prednisone, will continue for another 4 days to complete a 7-day course. 3. Chronic bilateral lower extremity neuropathy, GERD, psoriasis, insomnia are all chronic medical conditions which complicate his care. His home medications were continued where appropriate Physical Exam Narrative General: Alert, Oriented x3, Cooperative, No apparent distress HEENT: Atraumatic, PERRLA, EOMI, Normocephalic Oral: Moist Mucosa Neck: Supple, No JVD Lungs: Diminished, Normal air movement, No rhonchi, No wheeze, No rales Cardiovascular: Regular rate, Regular Rhythm, Normal S1, Normal S2, No murmurs Abdomen: Soft, Non Tender, Non-Distended, No Hepato-splenomegaly Extremities: No edema, Capillary Refill Less than 3 Seconds Skin: No rashes, No breakdown Musculoskeletal: No Tenderness to Palpation of Joints or Extremities Neurological: No focal neurological deficits, moves all extremities Psych/Mental Status: Normal Affect, Appropriate Weight / BMI Weight Weight: 210 lb 1.608 oz Body Mass Index (BMI) 30.1 ABG / Lab / Microbiology Data 02/08/25 05:25 02/08/25 05:25 Laboratory: Laboratory Results - last 24 hr 02/08/25 05:25: WBC 5.7, RBC 4.72, Hgb 16.1, Hct 47.7, MCV 101.1 H, MCH 34.1 H, MCHC 33.8, RDW Std Deviation 54.6 H, RDW Coeff of [place] 14.4, Plt Count 133 L, MPV 9.8, Sodium 135, Potassium 3.6, Chloride 94 L, Carbon Dioxide 28.5, Anion Gap 12, BUN 8, Creatinine 0.62 L, Estim Creat Clear Calc 152.32, Est GFR (MDRD) Non-Af 112, BUN/Creatinine Ratio 12.5, Glucose 127 H, Calcium 9.1 Microbiology: Microbiology 02/05/25 22:00 Sputum, Expectorated/Coughed Gram Stain - Final 02/05/25 22:00 Sputum, Expectorated/Coughed Respiratory Culture - Preliminary Appears to be normal respiratory dre. Further studies to follow. 02/05/25 23:20 Mucosa - Nasopharyngeal Respiratory Panel (PCR) - Final 02/05/25 21:15 Mucosa - Nose SARS-CoV-2, Influenza & RSV (PCR) - Final D/C Instructions Call your doctor if you observe: Fever of 101 or Higher, Shortness of breath, Dizziness, Fainting spells, Swelling in the ankles, Chest pain and Increased palpitations (irregular heartbeat) DC O2, CPAP, BIPAP Needs Home O2 Discharge instructions: No Meaningful Use Info Meaningful Use Meaningful Use Diagnoses (Choose all that apply): None applicable Discharge Plan Admission Admit Date/Time: 02/05/25 21:01 Attending Provider: Harjinder Romero Primary Care Provider: Hannah Bustos Consulting Providers: Brunilda Thompson; Katelyn Cabello; Bryan Cox; Be Graham Discharge Orders/Prescriptions Prescriptions: New prednisone 20 mg tablet 40 mg PO DAILY 4 Days Qty: 8 0RF Continued albuterol sulfate 90 mcg/actuation HFA aerosol inhaler 2 puff INHALATION Q6H PRN PRN (Reason: shortness of breath or wheezing) gabapentin 300 mg capsule 600 mg PO TID melatonin 5 mg tablet 5 mg PO QHS omeprazole 20 mg tablet,delayed release (DR/EC) 20 mg PO DAILY calcipotriene 0.005 % cream 1 applic topical BID PRN (Reason: psoriasis) Referrals / Follow Up: Hannah Bustos MD [Primary Care Provider, Family Practice] - Within 1 Week Disposition Disposition (needs filled in before D/C Order can be placed): Home, Self Care Charges/Coding Visit Charges Inpatient E&M: [id number] Disch Hosp >30min
== END 2025-02-08 10:39 | disposition home or self-care (01) | DRG 775 ==
LOC: ED 20:58 → PCU 21:18
PROVIDERS: Hospitalist; Admitting Provider Internal Medicine; Emergency Provider Emergency Medicine; PCP Family Medicine; Visit Provider Family Medicine
DX: F10.239 Alcohol dependence with withdrawal, unspecified (principal); D69.6 Thrombocytopenia, unspecified; J44.1 Chronic obstructive pulmonary disease with (acute) exacerbation; K70.10 Alcoholic hepatitis without ascites; E66.811 Obesity, class 1; F17.210 Nicotine dependence, cigarettes, uncomplicated; K21.9 Gastro-esophageal reflux disease without esophagitis; G62.9 Polyneuropathy, unspecified; L40.9 Psoriasis, unspecified; G47.30 Sleep apnea, unspecified; Z68.30 Body mass index [BMI] 30.0-30.9, adult; G47.00 Insomnia, unspecified; Z79.51 Long term (current) use of inhaled steroids; Z79.899 Other long term (current) drug therapy; Z86.73 Personal history of transient ischemic attack (TIA), and cerebral infarction without residual deficits; Y90.8 Blood alcohol level of 240 mg/100 ml or more
CPT/HCPCS: 36415; 71046; 80048; 80053; 80307; 82077; 83735; 84100; 85025; 85027; 87070; 87205; 87631; 87633; 94640; 94668; 99284; A4216